=== PATIENT | female | born 1935 | race African-American/Black ===

== ENCOUNTER 2016-12-11 01:12 | Emergency (ER) | payer MEDICARE ==
[~2016-12-11] VITALS: Ht 167.6 cm; Wt 80.0 kg
[~2016-12-11 01:12] MED LIST: AMOX400S3 PO; BISA10R PR; CIPR250T2 PO; CREON12 PO; DILTCD240 PO; FEED1MIS9; FENT25DI T-DERMAL; FLUC100T41 PO; MAGN30S PO; METO10TA PO; METO25 PO; NORC10TA2 PO; OMPR20CCR PO; SUCR1TAB PO; URSO300 PO
[2016-12-11 01:21] VITALS: BP 161/69; PULSE 74; RESP 18; TEMP 97; O2SAT 98
[2016-12-11] MEDS ORDERED: METO25TA3 PO (01:57)
[2016-12-11] MEDS ORDERED: SUCR1TAB PO (01:57)
[2016-12-11] MEDS ORDERED: CART120C PO (01:57)
[2016-12-11] MEDS ORDERED: PANT40TA3 PO (01:57)
[2016-12-11] MEDS ORDERED: CREON12 PO (01:57)
[2016-12-11] MEDS ORDERED: HYDR-3516 PO (01:57)
[2016-12-11] MEDS ORDERED: SODIUM CHLORIDE 0.9% FLUSH 5 ML FLUSH IVF PRN (02:00)
[2016-12-11 02:21] LABS: AUTOMATED NEUTROPHIL # 12.4 TH/MM3 (1.8-7.7); BASOPHIL # 0.1 TH/MM3 (0-0.2); BASOPHIL % 0.6 % (0.0-2.0); EOSINOPHIL # 0.1 TH/MM3 (0-0.4); HEMATOCRIT 36.9 % (35.0-46.0); HEMO FLAGS DIFF FINAL; LYMPH % 4.9 % (9.0-44.0); LYMPHOCYTE # 0.7 TH/MM3 (1.0-4.8); MEAN CORPUSCULAR HEMOGLOBIN 27.5 PG (27.0-34.0); MEAN CORPUSCULAR HGB CONC 33.2 % (32.0-36.0); MONO % 6.2 % (0.0-8.0); NEUT % 87.3 % (16.0-70.0); PLATELET COUNT 280 TH/MM3 (150-450); RED BLOOD COUNT 4.45 MIL/MM3 (4.00-5.30); WHITE BLOOD COUNT 14.2 TH/MM3 (4.0-11.0)
[2016-12-11] MEDS ORDERED: ONDANSETRON HCL 4 MG/2 ML VIAL IV ONE (02:30)
[2016-12-11] MEDS ORDERED: SODIUM CHLOR 0.9% 1000 ML INJ 1,000 ML IV ONE (02:30)
[2016-12-11] MEDS ORDERED: MORPHINE SULFATE 4 MG/ML INJ IV PUSH ONE ×3 (02:30→03:45)
--- NOTE | 2016-12-11 02:40 | PD ---
HPI Chief Complaint: Abdominal Pain Time Seen by Provider: 01:50 Travel History International Travel<30 days: No Contact w/Intl Traveler<30days: No Traveled to known affect area: No History of Present Illness HPI 80 year-old woman with a history of chronic pancreatitis, with epigastric pain similar to her previous panic toes of the symptoms are normal. Past week. 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 Since. Throbbing these in the past. She has a cholecystectomy. She has a G-tube in the past for nutritional supplementation. She has had some associated nausea. No change in her bowel movements. States the pain does radiate up into the chest some. No other complaints. History Past Medical History Narrative Medical Hypertension on chronic pancreatitis peptic ulcer disease anemia chronic kidney disease Menopausal: Yes Social History Alcohol Use: No Tobacco Use: No Allergies-Medications (Allergen,Severity, Reaction): Coded Allergies: No Known Allergies (Verified , 12/11/16) Reported Meds & Prescriptions Reported Meds & Active Scripts Active Reported Pantoprazole (Pantoprazole Sodium) 40 Mg Tab 40 Mg PO DAILY Creon (Amylase/Lipase/Protease) 12,000-38,000-60,000 Units Cap 1 Cap PO TIDPC Metoprolol Tartrate 25 Mg Tab 25 Mg PO BID Cartia Xt (Diltiazem ER 24 HR) 120 Mg Caper 120 Mg PO DAILY Hydrocodone-Acetaminophen 5-325 mg Tab 1 Tab PO QHS PRN Sucralfate 1 Gm Tab 1 Gm PO TID on empty stomach Review of Systems Except as stated in HPI: all other systems reviewed are Neg Physical Exam Narrative GENERAL: Well-appearing 80 year-old woman, no acute distress. SKIN: Warm and dry. HEAD: Atraumatic. Normocephalic. CARDIOVASCULAR: Regular rate and rhythm. No murmur appreciated. RESPIRATORY: No accessory muscle use. Clear to auscultation. Breath sounds equal bilaterally. GASTROINTESTINAL: Abdomen is flat and soft. Moderate epigastric tenderness. No rebound or guarding. MUSCULOSKELETAL: No obvious deformities. No clubbing. No cyanosis. No edema. NEUROLOGICAL: Awake and alert. No obvious cranial nerve deficits. Motor grossly within normal limits. Normal speech. PSYCHIATRIC: Appropriate mood and affect; insight and judgment normal. Data Data Last Documented VS Vital Signs Date Time Temp Pulse Resp B/P Pulse Ox O2 Delivery O2 Flow Rate FiO2 12/11/16 05:08 18 12/11/16 03:54 76 148/68 97 12/11/16 01:21 97.0 Room Air Orders Complete Blood Count With Diff (12/11/16 01:49) Comprehensive Metabolic Panel (12/11/16 01:49) Lipase (12/11/16 01:49) Urinalysis - C+S If Indicated (12/11/16 01:49) Iv Access Insert/Monitor (12/11/16 01:49) Sodium Chloride 0.9% Flush (Ns Flush) (12/11/16 02:00) Electrocardiogram (12/11/16 01:49) Troponin I (12/11/16 01:49) Morphine Inj (Morphine Inj) (12/11/16 02:30) Ondansetron Inj (Zofran Inj) (12/11/16 02:30) Sodium Chlor 0.9% 1000 Ml Inj (Ns 1000 M (12/11/16 02:30) Morphine Inj (Morphine Inj) (12/11/16 03:00) Morphine Inj (Morphine Inj) (12/11/16 03:45) Urine Culture (12/11/16 03:55) Labs Laboratory Tests Test 12/11/16 12/11/16 02:00 03:55 White Blood Count 14.2 TH/MM3 Red Blood Count 4.45 MIL/MM3 Hemoglobin 12.3 GM/DL Hematocrit 36.9 % Mean Corpuscular Volume 83.0 FL Mean Corpuscular Hemoglobin 27.5 PG Mean Corpuscular Hemoglobin 33.2 % Concent Red Cell Distribution Width 14.0 % Platelet Count 280 TH/MM3 Mean Platelet Volume 8.2 FL Neutrophils (%) (Auto) 87.3 % Lymphocytes (%) (Auto) 4.9 % Monocytes (%) (Auto) 6.2 % Eosinophils (%) (Auto) 1.0 % Basophils (%) (Auto) 0.6 % Neutrophils # (Auto) 12.4 TH/MM3 Lymphocytes # (Auto) 0.7 TH/MM3 Monocytes # (Auto) 0.9 TH/MM3 Eosinophils # (Auto) 0.1 TH/MM3 Basophils # (Auto) 0.1 TH/MM3 CBC Comment DIFF FINAL Differential Comment Sodium Level 140 MEQ/L Potassium Level 3.9 MEQ/L Chloride Level 107 MEQ/L Carbon Dioxide Level 24.8 MEQ/L Anion Gap 8 MEQ/L Blood Urea Nitrogen 34 MG/DL Creatinine 2.55 MG/DL Estimat Glomerular Filtration 22 ML/MIN Rate Random Glucose 120 MG/DL Calcium Level 9.1 MG/DL Total Bilirubin 0.2 MG/DL Aspartate Amino Transf 22 U/L (AST/SGOT) Alanine Aminotransferase 36 U/L (ALT/SGPT) Alkaline Phosphatase 147 U/L Troponin I LESS THAN 0.02 NG/ML Total Protein 7.3 GM/DL Albumin 3.0 GM/DL Lipase 1259 U/L Urine Color LIGHT-YELLOW Urine Turbidity CLEAR Urine pH 5.5 Urine Specific [place] 1.012 Urine Protein TRACE mg/dL Urine Glucose (UA) NEG mg/dL Urine Ketones NEG mg/dL Urine Occult Blood SMALL Urine Nitrite NEG Urine Bilirubin NEG Urine Urobilinogen LESS THAN 2.0 MG/DL Urine Leukocyte Esterase MOD Urine RBC 4 /hpf Urine WBC 20 /hpf Urine Squamous Epithelial 1 /hpf Cells Urine Renal Epithelial Cells <1 /hpf Microscopic Urinalysis Comment CULTURE INDICATED MDM Medical Decision Making Medical Screen Exam Complete: Yes Emergency Medical Condition: Yes Interpretation(s) My review of EKG: Normal sinus rhythm at a rate of 68, normal axis, normal intervals, no ischemia. LABS: CBC remarkable for mild leukocytosis. CMP remarkable for mildly elevated BUN and creatinine, mildly elevated lipase 1259 UA with mild pyuria. Culture pending. Differential Diagnosis Chronic pancreatitis, peptic ulcer disease, dehydration, other Narrative Course medical decision making 80 year-old woman presents emergent department epigastric abdominal pain, with nausea, no vomiting. Suspect chronic pancreatitis flare. Possible gastritis. She's taking her medications regularly. We'll check labs, IV fluids, pain control, reassess. FINAL: Labs show mildly elevated lipases, mildly abnormal BUN and creatinine, pyuria. I don't think patient symptoms are consistent with UTI. Await culture. Patient with acute on chronic pancreatitis. Offered admission. Patient would prefer to try at home with clear liquid diet, pain medicine, nausea medicine, and outpatient follow-up. She no she can return any time if her symptoms are worsening. She'll follow-up with her primary physician. Diagnosis Primary Impression: Pancreatitis, recurrent Additional Instructions: Clear liquid diet only until symptoms are improving. After that you can gradually advance diet as tolerated. Use Lortab if needed for pain. Use Zofran as needed for nausea or vomiting. Follow-up with your primary physician in the next one to 2 days for further evaluation. He will need repeat labs to follow up on your kidney function. Urine was sent for culture. If you have any infection we will call and antibiotics for you. If at any point you're having worsening pain is not relieved with the Lortab, you're having worsening vomiting, or you're getting dehydrated, return to the emergent arm for repeat evaluation and admission. Med/Other Pt SpecificInfo: Prescription(s) given Scripts Ondansetron Odt (Zofran Odt)4 Mg Tab4 Mg SL Q8HR PRN (Nausea/Vomiting) #15 TAB May substitute non-ODT form. Prov:Sanford Gale MD 12/11/16 Hydrocodone-Acetaminophen (Lortab)5-325 Mg Tab1-2 Tab PO Q6H PRN (PAIN) #20 TAB Prov:Sanford Gale MD 12/11/16 Disposition: 01 DISCHARGE HOME Condition: Stable Sanford Gale MD Dec 11, 2016 02:40
[2016-12-11 02:51] LABS: ALKALINE PHOSPHATASE 147 U/L (45-117); TOTAL BILIRUBIN ADULT 0.2 MG/DL (0.2-1.0)
[2016-12-11 02:58] LABS: ALT (GPT) 36 U/L (10-53); ANION GAP 8 MEQ/L (5-15); AST (GOT) 22 U/L (15-37); BICARBONATE 24.8 MEQ/L (21.0-32.0); BLOOD UREA NITROGEN 34 MG/DL (7-18); CHLORIDE 107 MEQ/L (98-107); GLOMERULAR FILTRATION RATE 22 ML/MIN (>89); POTASSIUM 3.9 MEQ/L (3.5-5.1); SODIUM (NA) 140 MEQ/L (136-145)
[2016-12-11 03:54] VITALS: BP 148/68; PULSE 76; RESP 18; O2SAT 97
[2016-12-11 04:09] LABS: BLOOD, URINE SMALL (NEG); GLUCOSE,URINE NEG (NEG); KETONE, URINE NEG (NEG); NITRITE,URINE NEG (NEG); PH, URINE 5.5 (5.0-8.5); RENAL EPITHELIAL CELLS <1 /hpf; SQUAMOUS EPITHELIAL CELL URINE 1 /hpf (0-5); URINE COLOR LIGHT-YELLOW (YELLW/STRAW)
[2016-12-11 04:10] LABS: COMMENT (UR) CULTURE INDICATED; CULTURE IF INDICATED CULTURE INDICATED
[2016-12-11 05:08] VITALS: RESP 18
[2016-12-11] MEDS ORDERED: HYDR-3533 PO (05:27)
[2016-12-11] MEDS ORDERED: ZOFR4TAB3 SL (05:27)
--- NOTE | 2016-12-11 16:24 | EKG ---
Date Performed: 12/11/2016 Time Performed: 02:02:39 PTAGE: 80 years EKG: Sinus rhythm NORMAL ECG PREVIOUS TRACING : 10/06/2015 23.22 Compared to prior tracing no significant change DOCTOR: Luis Enrique Cerrato Interpretating Date/Time 12/11/2016 16:23:51
== END 2016-12-11 05:51 | disposition home or self-care (01) ==
LOC: NEPC 01:12
DX: K86.1 Other chronic pancreatitis (principal); N18.9 Chronic kidney disease, unspecified; I12.9 Hypertensive chronic kidney disease with stage 1 through stage 4 chronic kidney disease, or unspecified chronic kidney disease; R11.0 Nausea
CPT/HCPCS: 80053; 81001; 83690; 84484; 85025; 87086; 93005; 96361; 96374; 96375; 96376; 99284; J2270; J2405; J7030

== ENCOUNTER 2016-12-14 05:44 | Inpatient (IN) | payer MEDICARE ==
[~2016-12-14] VITALS: Ht 167.6 cm; Wt 80.2 kg
[~2016-12-14 05:44] MED LIST changes: -AMOX400S3 PO; -BISA10R PR; +CART120C PO; -CIPR250T2 PO; -DILTCD240 PO; -FEED1MIS9; -FENT25DI T-DERMAL; -FLUC100T41 PO; +HYDR-3516 PO; +HYDR-3533 PO; -MAGN30S PO; -METO10TA PO; -METO25 PO; +METO25TA3 PO; -NORC10TA2 PO; -OMPR20CCR PO; +PANT40TA3 PO; -URSO300 PO; +ZOFR4TAB3 SL
[2016-12-14 05:46] VITALS: BP 167/80; PULSE 105; RESP 16; TEMP 98; O2SAT 98
[2016-12-14] MEDS ORDERED: SODIUM CHLOR 0.9% 1000 ML INJ 1,000 ML IV SCH ×2 (06:12→08:46)
[2016-12-14] MEDS ORDERED: PANTOPRAZOLE SODIUM 40 MG VIAL IVP ONE (06:15)
[2016-12-14] MEDS ORDERED: MORPHINE SULFATE 4 MG/ML INJ IV PUSH ONE (06:15)
[2016-12-14] MEDS ORDERED: ONDANSETRON HCL 4 MG/2 ML VIAL IVP ONE (06:15)
--- NOTE | 2016-12-14 06:18 | PD ---
HPI Chief Complaint: Chest Pain Time Seen by Provider: 05:59 Travel History International Travel<30 days: No Contact w/Intl Traveler<30days: No Traveled to known affect area: No History of Present Illness HPI 80-year-old female complains of abdominal pain with nausea vomiting. Patient has history recurrent pancreatitis. Patient was seen in emergency room 3 days ago and discharged home with medication. Patient states that the pain got better and got worse again today. Patient denies any headache. Patient denies any chest pain or shortness of breath. Patient states the pain in cramping pain and sharp pain localized around epigastric and right upper quadrant of the abdomen. Patient denies any pain radiation. Patient denies any dysuria or frequency. Patient denies any vaginal discharge or bleeding. Patient denies any fever chills. Patient denies any back pain. PFSH Past Medical History Arthritis: Yes Asthma: No Atrial Fibrillation: Yes Autoimmune Disease: No Anxiety: No Depression: No Heart Rhythm Problems: Yes Cancer: No Cardiovascular Problems: Yes (HTN) High Cholesterol: Yes Chest Pain: No Congestive Heart Failure: No COPD: No Cerebrovascular Accident: No Diabetes: No Diminished Hearing: No Endocrine: No Gastrointestinal Disorders: Yes (HIATAL HERNIA) GERD: Yes Glaucoma: No Genitourinary: Yes Hepatitis: No Hiatal Hernia: Yes Hypertension: Yes Immune Disorder: No Implanted Vascular Access Dvce: Yes Kidney Stones: No Medical other: Yes (arthritis,neck and back problems) Musculoskeletal: Yes (knee pain, sciatica) Neurologic: Yes Psychiatric: No Reproductive: No Respiratory: No Migraines: No Pancreatitis: Yes Renal Failure: No Seizures: No Sickle Cell Disease: No Sleep Apnea: No Thyroid Disease: No Ulcer: No Menopausal: Yes Past Surgical History Abdominal Surgery: Yes (cholecystectomy, sphincterotomy) Arteriovenous Shunt: No Cardiac Surgery: No Cholecystectomy: Yes (2012) Ear Surgery: No Endocrine Surgery: No Eye Surgery: Yes Genitourinary Surgery: Yes (HEMORRHOIDECTOMY) Gynecologic Surgery: No Insulin Pump: No Joint Replacement: Yes (TKR LEFT KNEE) Neurologic Surgery: No Oral Surgery: No Pacemaker: No Thoracic Surgery: No Other Surgery: Yes (GROWTH REMOVED FROM LEFT WRIST/Sinus) Social History Alcohol Use: No Tobacco Use: No Substance Use: No Allergies-Medications (Allergen,Severity, Reaction): Coded Allergies: No Known Allergies (Verified , 12/14/16) Reported Meds & Prescriptions Reported Meds & Active Scripts Active Zofran Odt (Ondansetron Odt) 4 Mg Tab 4 Mg SL Q8HR PRN May substitute non-ODT form. Lortab (Hydrocodone-Acetaminophen) 5-325 Mg Tab 1-2 Tab PO Q6H PRN Reported Pantoprazole (Pantoprazole Sodium) 40 Mg Tab 40 Mg PO DAILY Creon (Amylase/Lipase/Protease) 12,000-38,000-60,000 Units Cap 1 Cap PO TIDPC Metoprolol Tartrate 25 Mg Tab 25 Mg PO BID Cartia Xt (Diltiazem ER 24 HR) 120 Mg Caper 120 Mg PO DAILY Hydrocodone-Acetaminophen 5-325 mg Tab 1 Tab PO QHS PRN Sucralfate 1 Gm Tab 1 Gm PO TID on empty stomach Review of Systems General / Constitutional: No: Fever Eyes: No: Visual changes HENT: No: Headaches Cardiovascular: No: Chest Pain or Discomfort Respiratory: No: Shortness of Breath Gastrointestinal: Positive: Nausea, Vomiting, Abdominal Pain Genitourinary: No: Dysuria Musculoskeletal: No: Pain Skin: No Rash Neurologic: No: Weakness Psychiatric: No: Depression Endocrine: No: Polydipsia Hematologic/Lymphatic: No: Easy Bruising Physical Exam Narrative GENERAL: Well-nourished, well-developed patient. SKIN: Warm and dry. HEAD: Normocephalic. EYES: No scleral icterus. No injection or drainage. NECK: Supple, trachea midline. No JVD or lymphadenopathy. CARDIOVASCULAR: Regular rate and rhythm without murmurs, gallops, or rubs. RESPIRATORY: Breath sounds equal bilaterally. No accessory muscle use. GASTROINTESTINAL: Abdomen soft, nondistended. Patient has moderate tenderness on palpation epigastric and right upper quadrant of the abdomen. No rebound tenderness. No mass. MUSCULOSKELETAL: No cyanosis, or edema. BACK: Nontender without obvious deformity. No CVA tenderness. Neurologic exam normal. Data Data Last Documented VS Vital Signs Date Time Temp Pulse Resp B/P Pulse Ox O2 Delivery O2 Flow Rate FiO2 12/14/16 05:46 98.0 105 16 167/80 98 Orders Complete Blood Count With Diff (12/14/16 06:12) Comprehensive Metabolic Panel (12/14/16 06:12) Lipase (12/14/16 06:12) Prothrombin Time / Inr (Pt) (12/14/16 06:12) Act Partial Throm Time (Ptt) (12/14/16 06:12) Urinalysis - C+S If Indicated (12/14/16 06:12) Iv Access Insert/Monitor (12/14/16 06:12) Ecg Monitoring (12/14/16 06:12) Oximetry (12/14/16 06:12) Morphine Inj (Morphine Inj) (12/14/16 06:15) Ondansetron Inj (Zofran Inj) (12/14/16 06:15) Pantoprazole Inj (Protonix Inj) (12/14/16 06:15) Sodium Chlor 0.9% 1000 Ml Inj (Ns 1000 M (12/14/16 06:12) Creatine Kinase (Cpk) (12/14/16 07:07) Troponin I (12/14/16 07:07) Ct Abd/Pel W/O Iv Contrast (12/14/16 07:07) Electrocardiogram (12/14/16 ) Labs Laboratory Tests Test 12/14/16 06:20 White Blood Count 15.4 TH/MM3 Red Blood Count 4.22 MIL/MM3 Hemoglobin 12.1 GM/DL Hematocrit 35.2 % Mean Corpuscular Volume 83.3 FL Mean Corpuscular Hemoglobin 28.6 PG Mean Corpuscular Hemoglobin 34.3 % Concent Red Cell Distribution Width 14.0 % Platelet Count 360 TH/MM3 Mean Platelet Volume 8.3 FL Neutrophils (%) (Auto) 87.8 % Lymphocytes (%) (Auto) 4.3 % Monocytes (%) (Auto) 5.5 % Eosinophils (%) (Auto) 1.3 % Basophils (%) (Auto) 1.1 % Neutrophils # (Auto) 13.6 TH/MM3 Lymphocytes # (Auto) 0.7 TH/MM3 Monocytes # (Auto) 0.8 TH/MM3 Eosinophils # (Auto) 0.2 TH/MM3 Basophils # (Auto) 0.2 TH/MM3 CBC Comment DIFF FINAL Differential Comment Prothrombin Time 11.8 SEC Prothromb Time International 1.1 RATIO Ratio Activated Partial 33.4 SEC Thromboplast Time Sodium Level 136 MEQ/L Potassium Level 3.7 MEQ/L Chloride Level 104 MEQ/L Carbon Dioxide Level 24.2 MEQ/L Anion Gap 8 MEQ/L Blood Urea Nitrogen 27 MG/DL Creatinine 2.46 MG/DL Estimat Glomerular Filtration 23 ML/MIN Rate Random Glucose 145 MG/DL Calcium Level 9.4 MG/DL Total Bilirubin 0.4 MG/DL Aspartate Amino Transf 24 U/L (AST/SGOT) Alanine Aminotransferase 43 U/L (ALT/SGPT) Alkaline Phosphatase 188 U/L Total Protein 7.7 GM/DL Albumin 2.8 GM/DL Lipase 343 U/L MDM Medical Decision Making Medical Screen Exam Complete: Yes Emergency Medical Condition: Yes Differential Diagnosis Differential diagnosis including gastritis, PUD, pancreatitis, cholecystitis, colitis, UTI, pyelonephritis, nephrolithiasis. Narrative Course 80-year-old female with epigastric pain and right upper quadrant abdominal pain. History of recurrent pancreatitis. Normal saline solution 1 25 cc an hour. Protonix 40 mg IV. Morphine 2 mg IV. Zofran 4 mg IV. Patient is signed out to Dr. Kendrick at 7:09 AM. Diagnosis Primary Impression: Acute pancreatitis Qualified Code: K85.90 - Acute pancreatitis without infection or necrosis, unspecified pancreatitis type Miguel Mack MD Dec 14, 2016 06:18
[2016-12-14 06:31] LABS: AUTOMATED NEUTROPHIL # 13.6 TH/MM3 (1.8-7.7); BASOPHIL # 0.2 TH/MM3 (0-0.2); BASOPHIL % 1.1 % (0.0-2.0); EOSINOPHIL # 0.2 TH/MM3 (0-0.4); EOSINOPHIL % 1.3 % (0.0-4.0); HEMATOCRIT 35.2 % (35.0-46.0); HEMO FLAGS DIFF FINAL; LYMPH % 4.3 % (9.0-44.0); LYMPHOCYTE # 0.7 TH/MM3 (1.0-4.8); MEAN CELL VOLUME 83.3 FL (80.0-100.0); MEAN CORPUSCULAR HEMOGLOBIN 28.6 PG (27.0-34.0); MEAN CORPUSCULAR HGB CONC 34.3 % (32.0-36.0); MONO % 5.5 % (0.0-8.0); NEUT % 87.8 % (16.0-70.0); PLATELET COUNT 360 TH/MM3 (150-450); RED BLOOD COUNT 4.22 MIL/MM3 (4.00-5.30); WHITE BLOOD COUNT 15.4 TH/MM3 (4.0-11.0)
[2016-12-14 06:37] LABS: APTT (PATIENT) 33.4 SEC (24.3-30.1); INTERNATIONAL NORMALIZED RATIO 1.1 RATIO; PROTHROMBIN TIME - PATIENT 11.8 SEC (9.8-11.6)
[2016-12-14 06:50] LABS: ALT (GPT) 43 U/L (10-53); ANION GAP 8 MEQ/L (5-15); AST (GOT) 24 U/L (15-37); BICARBONATE 24.2 MEQ/L (21.0-32.0); BLOOD UREA NITROGEN 27 MG/DL (7-18); CHLORIDE 104 MEQ/L (98-107); GLOMERULAR FILTRATION RATE 23 ML/MIN (>89); POTASSIUM 3.7 MEQ/L (3.5-5.1); SODIUM (NA) 136 MEQ/L (136-145)
[2016-12-14 06:52] LABS: ALKALINE PHOSPHATASE 188 U/L (45-117); TOTAL BILIRUBIN ADULT 0.4 MG/DL (0.2-1.0)
[2016-12-14] MEDS ORDERED: HYDROmorphone HCL PF 1 MG/ML VIAL IV PUSH ONE (07:15)
[2016-12-14 07:25] VITALS: BP 142/76; PULSE 78; RESP 16; TEMP 98.1; O2SAT 98
[2016-12-14 07:43] LABS: CREATINE KINASE 41 U/L (26-192)
--- NOTE | 2016-12-14 08:38 | RADRPT ---
EXAM DATE/TIME: 12/14/2016 07:53 [facility] COMPARISON: CT ABDOMEN & PELVIS W/O CONTRAST, December 15, 2015, 20:38. INDICATIONS : Right upper quadrant and epigastric pain for one week. ORAL CONTRAST: No oral contrast ingested. RADIATION DOSE: 8.69 CTDIvol (mGy) MEDICAL HISTORY : Cardiovascular disease. Hypertension. Pancreatitis. SURGICAL HISTORY : Cholecystectomy. Hemorrhoidectomy. Sphincterotomy. Feeding tube placement. ENCOUNTER: Initial ACUITY: 1 week PAIN SCALE: 8/10 LOCATION: Right upper quadrant TECHNIQUE: Volumetric scanning of the abdomen and pelvis was performed. Using automated exposure control and ad justment of the mA and/or kV according to patient size, radiation dose was kept as low as reasonably achievable to obtain optimal diagnostic quality images. FINDINGS: There are minimal bibasilar parenchymal changes evident worse on the left than the right. These are stable in the short interval. The heart is enlarged. Biliary stent is evident with biliary air. Mass is again seen in the head of the pancreas. Spleen and adrenals are unremarkable. A cyst is seen in the upper pole of the right kidney. The left kidney is unremarkable. There is no ascites evident. Mild prominence to the uterus is noted. There is no free fluid or free air. CONCLUSION: 1. Patent biliary stent. Head of pancreas remains prominent with minimal peripancreatic induration, slightly increased in the interval. 2. Gastrostomy tube has been removed. 3. Moderate bibasilar parenchymal changes, stable in the interval. Jamie Tabor MD FACR on December 14, 2016 at 8:14 Board Certified Radiologist. This report was verified electronically.
--- NOTE | 2016-12-14 08:50 | PD ---
Data Data Last Documented VS Vital Signs Date Time Temp Pulse Resp B/P Pulse Ox O2 Delivery O2 Flow Rate FiO2 12/14/16 05:46 98.0 105 16 167/80 98 Orders Complete Blood Count With Diff (12/14/16 06:12) Comprehensive Metabolic Panel (12/14/16 06:12) Lipase (12/14/16 06:12) Prothrombin Time / Inr (Pt) (12/14/16 06:12) Act Partial Throm Time (Ptt) (12/14/16 06:12) Urinalysis - C+S If Indicated (12/14/16 06:12) Iv Access Insert/Monitor (12/14/16 06:12) Ecg Monitoring (12/14/16 06:12) Oximetry (12/14/16 06:12) Morphine Inj (Morphine Inj) (12/14/16 06:15) Ondansetron Inj (Zofran Inj) (12/14/16 06:15) Pantoprazole Inj (Protonix Inj) (12/14/16 06:15) Sodium Chlor 0.9% 1000 Ml Inj (Ns 1000 M (12/14/16 06:12) Creatine Kinase (Cpk) (12/14/16 07:07) Troponin I (12/14/16 07:07) Ct Abd/Pel W/O Iv Contrast (12/14/16 07:07) Electrocardiogram (12/14/16 ) Hydromorphone Pf Inj (Dilaudid Pf Inj) (12/14/16 07:15) Sodium Chlor 0.9% 1000 Ml Inj (Ns 1000 M (12/14/16 08:46) Labs Laboratory Tests Test 12/14/16 06:20 White Blood Count 15.4 TH/MM3 Red Blood Count 4.22 MIL/MM3 Hemoglobin 12.1 GM/DL Hematocrit 35.2 % Mean Corpuscular Volume 83.3 FL Mean Corpuscular Hemoglobin 28.6 PG Mean Corpuscular Hemoglobin 34.3 % Concent Red Cell Distribution Width 14.0 % Platelet Count 360 TH/MM3 Mean Platelet Volume 8.3 FL Neutrophils (%) (Auto) 87.8 % Lymphocytes (%) (Auto) 4.3 % Monocytes (%) (Auto) 5.5 % Eosinophils (%) (Auto) 1.3 % Basophils (%) (Auto) 1.1 % Neutrophils # (Auto) 13.6 TH/MM3 Lymphocytes # (Auto) 0.7 TH/MM3 Monocytes # (Auto) 0.8 TH/MM3 Eosinophils # (Auto) 0.2 TH/MM3 Basophils # (Auto) 0.2 TH/MM3 CBC Comment DIFF FINAL Differential Comment Prothrombin Time 11.8 SEC Prothromb Time International 1.1 RATIO Ratio Activated Partial 33.4 SEC Thromboplast Time Sodium Level 136 MEQ/L Potassium Level 3.7 MEQ/L Chloride Level 104 MEQ/L Carbon Dioxide Level 24.2 MEQ/L Anion Gap 8 MEQ/L Blood Urea Nitrogen 27 MG/DL Creatinine 2.46 MG/DL Estimat Glomerular Filtration 23 ML/MIN Rate Random Glucose 145 MG/DL Calcium Level 9.4 MG/DL Total Bilirubin 0.4 MG/DL Aspartate Amino Transf 24 U/L (AST/SGOT) Alanine Aminotransferase 43 U/L (ALT/SGPT) Alkaline Phosphatase 188 U/L Total Creatine Kinase 41 U/L Troponin I LESS THAN 0.02 NG/ML Total Protein 7.7 GM/DL Albumin 2.8 GM/DL Lipase 343 U/L [facility] Supervised Visit with ABHAY: No Narrative Course The patient was evaluated by the previous provider and signed out to me at the beginning of my shift pending CT abdomen pelvis and disposition, see his note for further details. Briefly this is a 80-year-old female with history of recurrent pancreatitis who presents for evaluation of epigastric abdominal pain. The patient was seen in the emergency department 3 days ago and had a lipase of 1200. Admission was advised, however the patient decided that she wanted to try to treat herself at home. Pain has not gone away and radiates up into her chest. EKG shows no signs of ischemia. Initial vital signs show a slight tachycardia with a heart rate of 105, otherwise unremarkable. CBC is remarkable for WBC 15.4 with 87% neutrophils. CMP is remarkable for BUN 27, creatinine 2.46, GFR 23 which is a lot worse than her baseline. Otherwise unremarkable. Lipase is 340. Cardiac enzymes are negative. CT abdomen pelvis: CONCLUSION: 1. Patent biliary stent. Head of pancreas remains prominent with minimal peripancreatic induration, slightly increased in the interval. 2. Gastrostomy tube has been removed. 3. Moderate bibasilar parenchymal changes, stable in the interval. Patient was given 2 doses of narcotic pain medication and a liter of IV fluids. She states that her pain has improved, however she is still complaining of some discomfort in her epigastric area. She is also dehydrated with a creatinine that is double her baseline. She'll be admitted for overnight observation for intractable abdominal pain and renal insufficiency. Diagnosis Primary Impression: Intractable abdominal pain Additional Impression: Acute renal insufficiency Admitting Information Admitting Physician Requests: Observation Luiz Kendrick MD Dec 14, 2016 08:50
[2016-12-14 09:03] VITALS: BP 144/70; PULSE 81; RESP 16; O2SAT 99
[2016-12-14] MEDS ORDERED: MAGNESIUM HYDROXIDE SUSP 30 ML CUP PO PRN (09:15)
[2016-12-14] MEDS ORDERED: NALOXONE HCL 0.4 MG/ML AMP IV PRN (09:15)
[2016-12-14] MEDS: NS + KCL 20 MEQ INJ 1,000 ML IV SCH ×2 (09:25→22:24)
[2016-12-14] MEDS: ACETAMINOPHEN 325 MG TAB PO PRN (09:26)
[2016-12-14 09:48] LABS: BLOOD, URINE MOD (NEG); COMMENT (UR) CULTURE INDICATED; CULTURE IF INDICATED CULTURE INDICATED; GLUCOSE,URINE NEG (NEG); KETONE, URINE NEG (NEG); MUCUS URINE FEW /lpf (OCC); NITRITE,URINE NEG (NEG); PH, URINE 5.5 (5.0-8.5); SQUAMOUS EPITHELIAL CELL URINE <1 /hpf (0-5); URINE COLOR YELLOW (YELLW/STRAW)
--- NOTE | 2016-12-14 09:51 | RADRPT ---
EXAM DATE/TIME: 12/14/2016 09:23 [facility] COMPARISON: CT ABDOMEN & PELVIS W/O CONTRAST, December 14, 2016, 7:53. CHEST EXPIRATION ONLY, December 22, 2015, 13:31. INDICATIONS : Short of breath, pain right chest and upper abdomen, cough MEDICAL HISTORY : Hypertension. Pancreatitis. SURGICAL HISTORY : Cholecystectomy. Hemorrhoidectomy. feeding tube ENCOUNTER: Subsequent ACUITY: 1 week PAIN SCORE: 4/10 LOCATION: Bilateral chest FINDINGS: There is mild unwinding of the aorta with normal vascularity with normal heart and clear left lung. R ight lung base reveals a thickened horizontal area of density consistent with atelectasis. CONCLUSION: Thickened horizontal area of atelectasis in the right lung base. Sanjay Rodriguez MD on December 14, 2016 at 9:46 Board Certified Radiologist. This report was verified electronically.
[2016-12-14] MEDS: LIPASE/PROTEASE/AMYLASE (12,000/38,000/60,000) CAP PO SCH ×3 (09:56→18:28)
--- NOTE | 2016-12-14 10:30 | HHI.HP ---
HPI Service [facility] Hospitalists Primary Care Physician Hong Peterson MD Admission Diagnosis intractable abdominal pain, acute renal insufficiency Chief Complaint: abdominal pain. Travel History International Travel<30 Days: No Contact w/Intl Traveler <30 Da: No Traveled to Known Affected Are: No History of Present Illness Pt has had numerous previous admissions d/t recurrent pancreatis. Pt has followed closely for many years with [facility] and has also been seen at the [facility]. She previously has had a cholecystectomy and sphincterotomy. Pt was last admitted d/t recurrent pancreatitis 11/13/15-01/02/16. During that admission, pt was treated with IVF and pain medications, but treatment was complicated by narcotic dependency. Pt typically has a reactive leukocytosis with her pancreatitis, and this has been seen on previous admissions. Pt underwent ERCP with stent placement 11/22/15. Pt had G/J tube placed on 11/28/15, but this was removed since prior hospitalization. Pt underwent repeat ERCP (12/11/15) Pt underwent biliary stent exchange with placement of a 10 amharic, 9 cm long plastic stent. During prior hospitalization , pt's case was confounded by a prolonged noninfectious inflammatory process which did NOT respond to antibiotics. Ultimately pt was placed on IV Solu- Medrol with a good clinical response and improvement of her leukocytosis. Pt was discharged to home on a prolonged oral prednisone taper. On this occasion, pt presented to the ER with c/o abdmianl pain and nausea. Pt was seen in the ER 3 days prior with similar complaints 12/11/16. Pt states that the abdominal pain is located at the RUQ and radiates to the epigastric region. Pt 's symptoms started 1 week ago, but have worsened over the last 3 days. Pt now c/o nausea and vomiting. Pt reports 2 episodes of vomiting today. On 12/11/16 pt's lipase was 1,259. Today (12/14/16) pt's lipase is down to 343. Pt refused admission and went home at prior ER visit (12/11/16). Initially the pain improved at home but then again worsened this AM leading her to seek attention in the ER. Pt denies any fever or chills. Pt's Creatinine is currently elevated. During prior hospitalization her creatinine was 1.29 on discharge (12/29/15) and today (12/14/16) 2.46. Pt has NOT been eating well over the last several days with increasing nausea and vomiting. At the time of my visit with Ms. Larsen in the [facility]-Pod. Pt appears quite comfortable and all smiles. Pt reports that last BM was 2 days ago. Pt's bowel sounds are present, but decreased. CT abd/pelvis (12/14/16) --> noted biliary stent, but NO acute findings. Pt will be admitted to observation status and received IVFs. Hopefully pt will be stable enough for discharge to home tomorrow. Review of Systems Constitutional: DENIES: Diaphoretic episodes, Fatigue, Fever, Weight gain, Weight loss, Chills, Dizziness, Change in appetite, Night Sweats Endocrine: DENIES: Heat/cold intolerance, Polydipsia, Polyuria, Polyphagia Eyes: DENIES: Blurred vision, Diplopia, Eye inflammation, Eye pain, Vision loss , Photosensitivity, Double Vision Ears, nose, mouth, throat: DENIES: Tinnitus, Hearing loss, Vertigo, Nasal discharge, Oral lesions, Throat pain, Hoarseness, Ear Pain, Running Nose, Epistaxis, Sinus Pain, Toothache, Odynophagia Respiratory: DENIES: Apneas, Cough, Snoring, Wheezing, Hemoptysis, Sputum production, Shortness of breath Cardiovascular: DENIES: Chest pain, Palpitations, Syncope, Dyspnea on Exertion , PND, Lower Extremity Edema, Orthopnea, Claudication Gastrointestinal: COMPLAINS OF: Abdominal pain, Nausea, See HPI, DENIES: Black stools, Bloody stools, BRB per rectum, Constipation, Diarrhea, GERD, Reflux, Vomiting, Difficulty Swallowing, Anorexia Genitourinary: DENIES: Urinary frequency, Urinary incontinence, Urgency, Hematuria, Dysuria, Nocturia Musculoskeletal: DENIES: Joint pain, Muscle aches, Stiffness, Joint Swelling, Back pain, Neck pain Integumentary: DENIES: Abnormal pigmentation, Pruritus, Rash, Nail changes, Breast masses, Breast skin changes, Nipple discharge Hematologic/lymphatic: DENIES: Bruising, Lymphadenopathy Immunologic/allergic: DENIES: Eczema, Urticaria Neurologic: DENIES: Abnormal gait, Headache, Localized weakness, Paresthesias, Seizures, Speech Problems, Tremor, Poor Balance Psychiatric: DENIES: Anxiety, Confusion, Mood changes, Depression, Hallucinations, Agitation, Suicidal Ideation, Homicidal Ideation, Delusions, History of Bipolar, History of Schizophrenia Past Family Social History Past Medical History Idiopathic recurrent pancreatitis Anxiety GERD HTN Past Surgical History Cholecystectomy Cataract surgery Hemorrhoid surgery ERCP EUS Reported Medications Reported Meds & Active Scripts Active Zofran Odt (Ondansetron Odt) 4 Mg Tab 4 Mg SL Q8HR PRN May substitute non-ODT form. Lortab (Hydrocodone-Acetaminophen) 5-325 Mg Tab 1-2 Tab PO Q6H PRN Reported Pantoprazole (Pantoprazole Sodium) 40 Mg Tab 40 Mg PO BID Creon (Amylase/Lipase/Protease) 12,000-38,000-60,000 Units Cap 1 Cap PO TIDPC Metoprolol Tartrate 25 Mg Tab 25 Mg PO BID Cartia Xt (Diltiazem ER 24 HR) 120 Mg Caper 120 Mg PO DAILY Hydrocodone-Acetaminophen 5-325 mg Tab 1 Tab PO QHS PRN Sucralfate 1 Gm Tab 1 Gm PO TID on empty stomach Allergies: Coded Allergies: No Known Allergies (Verified , 12/14/16) Family History Denies any family history of pancreatitis. Father had some type of stomach cancer per [facility] E[facility] Social History - No tobacco use - NO alcohol use - NO illicit street drugs Physical Exam Vital Signs Vital Signs Date Time Temp Pulse Resp B/P Pulse Ox O2 Delivery O2 Flow Rate FiO2 12/14/16 09:03 81 16 144/70 99 Room Air 12/14/16 08:01 16 12/14/16 07:25 98.1 78 16 142/76 98 Room Air 12/14/16 07:25 16 98 Room Air 12/14/16 07:20 76 16 Room Air 12/14/16 07:00 16 12/14/16 05:46 98.0 105 16 167/80 98 Physical Exam GENERAL: This is a well-nourished, well-developed patient, in no apparent distress. SKIN: No rashes, ecchymoses or lesions. Cool and dry. HEAD: Atraumatic. Normocephalic. No temporal or scalp tenderness. EYES: Pupils equal round and reactive. Extraocular motions intact. No scleral icterus. No injection or drainage. ENT: Nose without bleeding, purulent drainage or septal hematoma. Throat without erythema, tonsillar hypertrophy or exudate. Uvula midline. Airway patent. NECK: Trachea midline. No JVD or lymphadenopathy. Supple, nontender, no meningeal signs. CARDIOVASCULAR: Regular rate and rhythm without murmurs, gallops, or rubs. RESPIRATORY: Clear to auscultation. Breath sounds equal bilaterally. No wheezes , rales, or rhonchi. GASTROINTESTINAL: Abdomen soft, non-tender, nondistended. No hepato-splenomegaly , or palpable masses. No guarding. MUSCULOSKELETAL: Extremities without clubbing, cyanosis, or edema. No joint tenderness, effusion, or edema noted. No calf tenderness. Negative Homans sign bilaterally. NEUROLOGICAL: Awake and alert. Cranial nerves II through XII intact. Motor and sensory grossly within normal limits. Five out of 5 muscle strength in all muscle groups. Normal speech. Laboratory Laboratory Tests Test 12/14/16 12/14/16 06:20 09:30 White Blood Count 15.4 Red Blood Count 4.22 Hemoglobin 12.1 Hematocrit 35.2 Mean Corpuscular Volume 83.3 Mean Corpuscular Hemoglobin 28.6 Mean Corpuscular Hemoglobin 34.3 Concent Red Cell Distribution Width 14.0 Platelet Count 360 Mean Platelet Volume 8.3 Neutrophils (%) (Auto) 87.8 Lymphocytes (%) (Auto) 4.3 Monocytes (%) (Auto) 5.5 Eosinophils (%) (Auto) 1.3 Basophils (%) (Auto) 1.1 Neutrophils # (Auto) 13.6 Lymphocytes # (Auto) 0.7 Monocytes # (Auto) 0.8 Eosinophils # (Auto) 0.2 Basophils # (Auto) 0.2 CBC Comment DIFF FINAL Differential Comment Prothrombin Time 11.8 Prothromb Time International 1.1 Ratio Activated Partial 33.4 Thromboplast Time Sodium Level 136 Potassium Level 3.7 Chloride Level 104 Carbon Dioxide Level 24.2 Anion Gap 8 Blood Urea Nitrogen 27 Creatinine 2.46 Estimat Glomerular Filtration 23 Rate Random Glucose 145 Calcium Level 9.4 Total Bilirubin 0.4 Aspartate Amino Transf 24 (AST/SGOT) Alanine Aminotransferase 43 (ALT/SGPT) Alkaline Phosphatase 188 Total Creatine Kinase 41 Troponin I LESS THAN 0.02 Total Protein 7.7 Albumin 2.8 Lipase 343 Urine Color YELLOW Urine Turbidity HAZY Urine pH 5.5 Urine Specific [place] 1.013 Urine Protein 30 Urine Glucose (UA) NEG Urine Ketones NEG Urine Occult Blood MOD Urine Nitrite NEG Urine Bilirubin NEG Urine Urobilinogen LESS THAN 2.0 Urine Leukocyte Esterase LARGE Urine RBC 39 Urine WBC 101 Urine WBC Clumps OCC Urine Squamous Epithelial <1 Cells Urine Mucus FEW Microscopic Urinalysis Comment CULTURE INDICATED Date/Time Procedure Status Source Growth 12/14/16 09:30 Urine Culture Received Urine Random Urine Pending Result Diagram: 12/14/16 0620 12/14/16 0620 Imaging Last Impressions Chest X-Ray 12/14/16 0910 Signed Impressions: Service Date/Time: Wednesday, December 14, 2016 09:23 - CONCLUSION: Thickened horizontal area of atelectasis in the right lung base. Sanjay Rodriguez MD Septic Shock Reassessment Heart: Regular rate and rhythm Lungs: Clear Skin: Warm Peripheral Pulses: Bounding Right Radial Bounding Left Radial Bounding Right Popliteal Bounding Left Popliteal Bounding Right Dorsalis Pedis Bounding Left Dorsalis Pedis Bounding Right Posterior Tibial Bounding Left Posterior Tibial Capillary Refill: Brisk Assessment and Plan Problem List: (1) Chronic recurrent pancreatitis Status: Acute Plan: - IVFs - narcotics prn - repeat labs in AM - anticipate d/c to home 12/15/16 (2) Acute on chronic kidney disease, stage 3 Status: Chronic Plan: - IVFs - repeat labs in AM (3) HTN (hypertension) Status: Chronic Plan: - metoprolol, cardizem CD (4) Anxiety Status: Chronic Problem Qualifiers (1) HTN (hypertension): Qualified Code: I10 - Essential hypertension Alexander Eddy DO Dec 14, 2016 10:30
[2016-12-14 11:14] VITALS: BP 132/60; PULSE 93; RESP 19; TEMP 98.5; O2SAT 100
[2016-12-14] MEDS: ACETAMINOPHEN/HYDROcodone 325 MG/5 MG TAB PO PRN ×2 (12:14→22:25)
[2016-12-14] MEDS: SUCRALFATE 1 GM TAB PO SCH ×2 (12:15→18:28)
--- NOTE | 2016-12-14 13:51 | EKG ---
Date Performed: 12/14/2016 Time Performed: 07:20:59 PTAGE: 80 years EKG: Sinus rhythm POSSIBLE RIGHT ATRIAL ENLARGEMENT NONSPECIFIC T-WAVE ABNORMALITY BORDERLINE ECG PREVIOUS TRACING : 12/11/2016 02.02 No significant change from previous tracing noted. DOCTOR: Semaj Genao Interpretating Date/Time 12/14/2016 13:50:25
[2016-12-14 15:18] VITALS: BP 192/88; PULSE 99; RESP 17; TEMP 99.3; O2SAT 95
[2016-12-14] MEDS: HYDROmorphone HCL PF 1 MG/ML VIAL IV PUSH PRN (16:16)
[2016-12-14 20:32] VITALS: BP 145/65; PULSE 118; RESP 18; TEMP 101.5; O2SAT 95
[2016-12-14] MEDS ORDERED: POTASSIUM CHLOR 20 MEQ PREMIX 100 ML ONE (22:15)
[2016-12-14] MEDS: METOPROLOL TARTRATE 25 MG TAB PO SCH (22:23)
[2016-12-14] MEDS: SODIUM CHLORIDE 0.9% FLUSH 5 ML FLUSH FLUSH SCH (22:23)
[2016-12-14] MEDS: PANTOPRAZOLE SOD 40 MG DELAYED RELEASE TAB PO SCH (22:23)
[2016-12-14] MEDS: ONDANSETRON HCL 4 MG/2 ML VIAL IVP PRN (22:28)
[2016-12-15 00:21] VITALS: BP 141/79; PULSE 107; RESP 16; TEMP 99.2; O2SAT 95
[2016-12-15] MEDS: HYDROmorphone HCL PF 1 MG/ML VIAL IV PUSH PRN (02:35)
[2016-12-15] MEDS: ACETAMINOPHEN/HYDROcodone 325 MG/5 MG TAB PO PRN ×3 (05:55→20:17)
[2016-12-15 06:01] VITALS: BP 134/77; PULSE 101; RESP 18; TEMP 99.5; O2SAT 98
[2016-12-15 07:15] LABS: AUTOMATED NEUTROPHIL # 12.3 TH/MM3 (1.8-7.7); BASOPHIL # 0.1 TH/MM3 (0-0.2); BASOPHIL % 0.6 % (0.0-2.0); EOSINOPHIL # 0.1 TH/MM3 (0-0.4); EOSINOPHIL % 0.7 % (0.0-4.0); HEMATOCRIT 32.8 % (35.0-46.0); HEMO FLAGS DIFF FINAL; LYMPH % 7.3 % (9.0-44.0); LYMPHOCYTE # 1.1 TH/MM3 (1.0-4.8); MEAN CELL VOLUME 83.6 FL (80.0-100.0); MEAN CORPUSCULAR HEMOGLOBIN 27.1 PG (27.0-34.0); MEAN CORPUSCULAR HGB CONC 32.4 % (32.0-36.0); MONO % 6.6 % (0.0-8.0); NEUT % 84.8 % (16.0-70.0); PLATELET COUNT 330 TH/MM3 (150-450); RED BLOOD COUNT 3.93 MIL/MM3 (4.00-5.30); RED CELL DISTRIBUTION WIDTH 13.8 % (11.6-17.2); WHITE BLOOD COUNT 14.5 TH/MM3 (4.0-11.0)
[2016-12-15 07:41] LABS: BICARBONATE 21.8 MEQ/L (21.0-32.0); MAGNESIUM 2.1 MG/DL (1.5-2.5)
[2016-12-15 08:17] VITALS: BP 132/66; PULSE 101; RESP 18; TEMP 98.3; O2SAT 95
[2016-12-15] MEDS: DILTIAZEM-CD 120 MG CAP ER PO SCH (10:12)
[2016-12-15] MEDS: SODIUM CHLORIDE 0.9% FLUSH 5 ML FLUSH FLUSH SCH ×2 (10:13→20:17)
[2016-12-15] MEDS: LIPASE/PROTEASE/AMYLASE (12,000/38,000/60,000) CAP PO SCH ×3 (10:13→18:47)
[2016-12-15] MEDS: SUCRALFATE 1 GM TAB PO SCH ×3 (10:13→18:47)
[2016-12-15] MEDS: METOPROLOL TARTRATE 25 MG TAB PO SCH ×2 (10:13→20:18)
[2016-12-15] MEDS: PANTOPRAZOLE SOD 40 MG DELAYED RELEASE TAB PO SCH ×2 (10:13→20:18)
[2016-12-15] MEDS: NS + KCL 20 MEQ INJ 1,000 ML IV SCH ×2 (11:04→23:25)
[2016-12-15 12:03] VITALS: BP 144/77; PULSE 86; RESP 18; O2SAT 95
--- NOTE | 2016-12-15 13:55 | HHI.PR ---
Subjective Remarks Pt c/o continued RUQ abdominal pain requiring narcotics. Pt's PO intake has been poor. Pt had fever overnight, but NONE today. Pt denies cough. CXR (12/14/16) --> NO infiltrates Pt denies dysuria UA Cx (12/14/16) 10-50K CFU, probable contaminants Objective Vitals Vital Signs Date Time Temp Pulse Resp B/P Pulse Ox O2 Delivery O2 Flow Rate FiO2 12/15/16 12:03 86 18 144/77 95 12/15/16 08:17 98.3 101 18 132/66 95 12/15/16 06:01 99.5 101 18 134/77 98 12/15/16 03:12 16 12/15/16 00:21 99.2 107 16 141/79 95 12/14/16 23:30 19 12/14/16 20:32 101.5 118 18 145/65 95 12/14/16 15:18 99.3 99 17 192/88 95 Result Diagram: 12/15/16 0630 12/15/16 0630 Imaging Last Impressions Chest X-Ray 12/14/16 0910 Signed Impressions: Service Date/Time: Wednesday, December 14, 2016 09:23 - CONCLUSION: Thickened horizontal area of atelectasis in the right lung base. Sanjay Rodriguez MD Abdomen/Pelvis CT 12/14/16 0707 Signed Impressions: Service Date/Time: Wednesday, December 14, 2016 07:53 - CONCLUSION: 1. Patent biliary stent. Head of pancreas remains prominent with minimal peripancreatic induration, slightly increased in the interval. 2. Gastrostomy tube has been removed. 3. Moderate bibasilar parenchymal changes, stable in the interval. Jamie Tabor MD FACR A/P Problem List: (1) Chronic recurrent pancreatitis Status: Acute Plan: - pt with continued abdominal pain and nausea - poor PO intake - IVFs - narcotics prn - downgrade diet to full liquids - repeat labs in AM - request GI consult (2) Acute on chronic kidney disease, stage 3 Status: Chronic Plan: - little improvement from admission - continue IVFs - repeat labs in AM (3) HTN (hypertension) Status: Chronic Plan: - metoprolol, cardizem CD (4) Anxiety Status: Chronic Problem Qualifiers (1) HTN (hypertension): Qualified Code: I10 - Essential hypertension Eddy,Edward B DO Dec 15, 2016 13:55
--- NOTE | 2016-12-15 15:49 | PD.CONS ---
HPI History of Present Illness This is a 80 year old with a hx of idiopathic recurrent pancreatitis, who came to the ER for further evaluation of persistent nausea/vomiting and abdominal pain. She has had multiple hospitalizations for her these symptoms and has had She has had extensive workup for her recurrent pancreatitis with MRCP, ERCP with sphincterotomy for suspected sphincter dysfunction vs. microlithiasis, Ig4 level, EUS, Triglycerides, and tertiary evaluation. She had a prolonged hospitalization in November/December of last year for her pancreatitis and was evaluated with ERCP with stent placement (11/22/15). Afterwards, she continued to have fevers and blood cultures revealed klebsiella pneumonia and therefore when underwent another ERCP with stent exchange on (12/11/15) for possible biliary sepsis. Outpatient records show that she then had an EGD with biopsy, GJ tube repositioning, ERCP with stent removal, biliary dilation with CRE balloon, balloon extraction, and wall stent, EUS (02/12/16)------> unremarkable EUS of the pancrease, a stent was noted in the CBD, but otherwise was normla, prior sphincterotomy but otherwise normal, distal cbd stricture, smooth benign, this was dilated with CRE balloon 10mm post dil still significant narrowing and as such a full cover 10 slovenian 6 cm wall stent was placed, positioning satisfactory, prior to stent placement a 15 mm balloon was used to clear the bile duct and no stones were noted, intrhepatic biliary tree normal, not dilated , normal esophagus, hiatal hernia, large antral ulcer, clean based, this was biopsied. Pathology of antral ulcer with predominantly necroinflammatory exudate consistent with ulceration, with rare detached fragments of benign gastric mucosa. She also had G/J tube placement during a prior hospitalization which has subsequently been removed. She was evaluated for anemia with EGD/ Colonoscopy (10/04/15) and this revealed an ulcer at the GE junction, thick gastric fold at pre-pyloric area, mild gastritis, duodenal inflammation in the bulb and second portion of the duodenum, small polyp in the ascending colon, and moderate internal hemorrhoids. Pathology revealed gastric antral mucosal biopsies with mild chronic gastritis exhibiting histopathologic features consistent with chemical gastropathy as may be seen with bile reflux, nonsteroidal anti-inflammatory drugs or other drug induced disease negative for intestinal metaplasia and dysplasia, gricelda stain negative for helicobacter, gastroesophageal mucosal biopsy with inflammatory changes consistent with reflux negative for intestinal metaplasia and dysplasia, colonic mucosa with adenomatous polyp. She was last seen in our office in April of 2016, at which time she was doing very well and her ursodiol, reglan, and g/j tube was discontinued. She was doing well up until recently. She actually started having minor epigastric pain a few weeks ago, but states that she would take her hydrocodone and that it would subside. However, she had worsening of this pain on with nausea/vomiting and did not have any relief with the pain medicine and therefore came to the ER on 12/11/16 and was found to have a lipase of 1259. The pain is a dull ache in her epigastric and RUQ. It radiates to her back and she has associated nausea/vomiting. She also reports fevers and chills although she did not actually take her temperature. She denies any weight loss and actually she gained weight and this has been stable. SHe has mild bloating and states she has not moved her bowels since . Her symptoms are aggravated by any po intake. She declined admission at that time and was discharged home on a clear liquid diet and lortab for pain, zofran for n/v. She stayed on the clear liquids and reports that she really could even take much in the way of po. She then returned yesterday, after she had worsening of her abdominal pain and was noted to have a elevated creatinine from 1.29 on the 12/11, to 2.46 yesterday and was admitted for chronic recurrent pancreatitis. CT scan abdomen and pelvis without contrast (12/14/16)----> patent biliary stent. Head of pancreas remains promient with minimal peripancreatic induration slightly increased in the interval, gastrostomy tube has been removed , moderate bibaseilar parenchymal changes, stable in the interval. She denies any new medications and does not drink ETOH. (Edwina Dodge) PFSH Past Medical History Idiopathic recurrent pancreatitis Anxiety GERD HTN Ulcer at GE junction Gastritis, Duodenitis Adenomatous colon polyp Past Surgical History Cholecystectomy Cataract surgery Hemorrhoid surgery ERCP EUS EGD/Colonoscopy (Edwina Dodge) Coded Allergies: No Known Allergies (Verified , 12/14/16) Medications Allergies Coded Allergies Type Severity Reaction Last Updated Verified No Known Allergies 12/14/16 Yes Active Scripts Medications Dose Route/Sig Days Date Category Dose Instructions Zofran Odt (Ondansetron Odt) 4 Mg Tab 4 Mg SL Q8HR PRN 12/11/16 Rx May substitute non-ODT form. Lortab (Hydrocodone-Acetaminophen) 5-325 Mg Tab 1-2 Tab PO Q6H PRN 12/11/16 Rx Pantoprazole (Pantoprazole Sodium) 40 Mg Tab 40 Mg PO BID 12/11/16 Reported Creon (Amylase/Lipase/Protease) 12,000-38,000-60,000 Units Cap 1 Cap PO TIDPC 12/11/16 Reported Metoprolol Tartrate 25 Mg Tab 25 Mg PO BID 12/11/16 Reported Cartia Xt (Diltiazem ER 24 HR) 120 Mg Caper 120 Mg PO DAILY 12/11/16 Reported Hydrocodone-Acetaminophen 5-325 mg Tab 1 Tab PO QHS PRN 12/11/16 Reported Sucralfate 1 Gm Tab 1 Gm PO TID 12/11/16 Reported on empty stomach Family History Denies any family history of pancreatitis. States father had some type of "chest cancer." Social History Denies tobacco, etoh use. (Edwina Dodge) Review of Systems Constitutional: COMPLAINS OF: Fatigue, Fever, Weight gain, Chills, Change in appetite (recent), DENIES: Weight loss Respiratory: DENIES: Cough Cardiovascular: DENIES: Chest pain Gastrointestinal: COMPLAINS OF: Abdominal pain, Constipation, Nausea, Vomiting , Anorexia (recent), Swelling of Abdomen, DENIES: Black stools, Bloody stools, Diarrhea, Heartburn Musculoskeletal: COMPLAINS OF: Back pain Neurologic: COMPLAINS OF: Headache Psychiatric: DENIES: Anxiety, Confusion (Edwina Dodge) GI Exam Vitals I&O Vital Signs Date Time Temp Pulse Resp B/P Pulse Ox O2 Delivery O2 Flow Rate FiO2 12/15/16 12:03 86 18 144/77 95 12/15/16 08:17 98.3 101 18 132/66 95 12/15/16 06:01 99.5 101 18 134/77 98 12/15/16 03:12 16 12/15/16 00:21 99.2 107 16 141/79 95 12/14/16 23:30 19 12/14/16 20:32 101.5 118 18 145/65 95 Imaging Last Impressions Chest X-Ray 12/14/16 0910 Signed Impressions: Service Date/Time: Wednesday, December 14, 2016 09:23 - CONCLUSION: Thickened horizontal area of atelectasis in the right lung base. Sanjay Rodriguez MD Abdomen/Pelvis CT 12/14/16 0707 Signed Impressions: Service Date/Time: Wednesday, December 14, 2016 07:53 - CONCLUSION: 1. Patent biliary stent. Head of pancreas remains prominent with minimal peripancreatic induration, slightly increased in the interval. 2. Gastrostomy tube has been removed. 3. Moderate bibasilar parenchymal changes, stable in the interval. Jamie Tabor MD FACR Laboratory Test 12/15/16 06:30 White Blood Count 14.5 TH/MM3 Red Blood Count 3.93 MIL/MM3 Hemoglobin 10.7 GM/DL Hematocrit 32.8 % Mean Corpuscular Volume 83.6 FL Mean Corpuscular Hemoglobin 27.1 PG Mean Corpuscular Hemoglobin 32.4 % Concent Red Cell Distribution Width 13.8 % Platelet Count 330 TH/MM3 Mean Platelet Volume 8.1 FL Neutrophils (%) (Auto) 84.8 % Lymphocytes (%) (Auto) 7.3 % Monocytes (%) (Auto) 6.6 % Eosinophils (%) (Auto) 0.7 % Basophils (%) (Auto) 0.6 % Neutrophils # (Auto) 12.3 TH/MM3 Lymphocytes # (Auto) 1.1 TH/MM3 Monocytes # (Auto) 1.0 TH/MM3 Eosinophils # (Auto) 0.1 TH/MM3 Basophils # (Auto) 0.1 TH/MM3 CBC Comment DIFF FINAL Differential Comment Sodium Level 138 MEQ/L Potassium Level 4.0 MEQ/L Chloride Level 106 MEQ/L Carbon Dioxide Level 21.8 MEQ/L Anion Gap 10 MEQ/L Blood Urea Nitrogen 25 MG/DL Creatinine 2.58 MG/DL Estimat Glomerular Filtration 22 ML/MIN Rate Random Glucose 88 MG/DL Calcium Level 8.5 MG/DL Magnesium Level 2.1 MG/DL Date/Time Procedure Status Source Growth 12/14/16 09:30 Urine Culture - Final Complete Urine Random Urine 10-50,000 CFU/ML MIXED DINORAH... Physical Examination HEENT: Pupils round and reactive to light; normocephalic; atraumatic; no jaundice. Throat is clear. NECK: Neck is supple, no JVD, no lymphadenopathy. CHEST: Chest is clear to auscultation and percussion. CARDIAC: RRR ABDOMEN: Soft, mildly bloated, diffuse tenderness, more in epigastric/RUQ, no hepatosplenomegaly; bowel sounds are present in all four quadrants. EXTREMITIES: No clubbing, cyanosis, or edema. SKIN: Normal; no rash; no jaundice. [employer]: No focal deficits; alert and oriented times three. (Edwina DodgeP) Assessment and Plan Plan ASSESSMENT: - Recurrent pancreatitis. Pt with hx of idiopathic recurrent pancreatitis, s/p extensive workup for her recurrent pancreatitis with MRCP, ERCP with sphincterotomy for suspected sphincter dysfunction vs. microlithiasis, Ig4 level, EUS, Triglycerides, and tertiary evaluation. She had a prolonged hospitalization in November/December of last year for her pancreatitis and was evaluated with ERCP with stent placement (11/22/15), exchange on (12/11/15) for suspected biliary sepsis and G/J tube placement. She then had EGD with biopsy, GJ tube repositioning, ERCP with stent removal , biliary dilation with CRE balloon, balloon extraction, and wall stent, EUS ()------> unremarkable EUS of the pancrease, a stent was noted in the CBD, but otherwise was normla, prior sphincterotomy but otherwise normal, distal cbd stricture, smooth benign, this was dilated with CRE balloon 10mm post dil still significant narrowing and as such a full cover 10 slovenian 6 cm wall stent was placed, positioning satisfactory, prior to stent placement a 15 mm balloon was used to clear the bile duct and no stones were noted, intrahepatic biliary tree normal, not dilated, normal esophagus, hiatal hernia, large antral ulcer, clean based, this was biopsied. Pathology of antral ulcer with predominantly necroinflammatory exudate consistent with ulceration, with rare detached fragments of benign gastric mucosa. She was last seen in our office in April of 2016, at which time she was doing very well and her ursodiol, reglan, and g/j tube was discontinued. CT scan abdomen and pelvis without contrast (12/14/16)----> patent biliary stent. Head of pancreas remains promient with minimal peripancreatic induration slightly increased in the interval, gastrostomy tube has been removed, moderate bibasilar parenchymal changes, stable in the interval. LFT unremarkable other than elevated alk. phosp 188. S/P Cholecystectomy, lipase now 343, although was > 1000 on 12/11. She denies any new medications and does not drink ETOH. IVF. PPI. Full liquids. - Leukocytosis/Fever. 14.5. Pt reports fevers/chills. Did have feer of 101.5 last night. - WAYNE. Creat. 2.58. IVF - Anemia. 10.7/32.8. Did have gastric ulcer on last endoscopy in january of 2016. No obvious GI bleeding. Prior to that she had EGD/Colonoscopy (10/04/15) and this revealed an ulcer at the GE junction, thick gastric fold at pre-pyloric area, mild gastritis, duodenal inflammation in the bulb and second portion of the duodenum, small polyp in the ascending colon, and moderate internal hemorrhoids. Pathology revealed gastric antral mucosal biopsies with mild chronic gastritis exhibiting histopathologic features consistent with chemical gastropathy as may be seen with bile reflux, nonsteroidal anti-inflammatory drugs or other drug induced disease negative for intestinal metaplasia and dysplasia, gricelda stain negative for helicobacter, gastroesophageal mucosal biopsy with inflammatory changes consistent with reflux negative for intestinal metaplasia and dysplasia, colonic mucosa with adenomatous polyp. PLAN: - Full liquids - PPI - IVF - Monitor labs - Further recommendations to follow after patient seen and evaluated by Dr. Ortega (Edwina Dodge) Physician Comments Patient seen and examined Agree with above Continue present supportive care Monitor labs Pancreatitis etiology unclear but appears to be resolving at this point Plan EGD for tomorrow to further evaluate history of ulcers and potential causes for pancreatitis and to reassess biliary stent (Gregg Ortega MD ) Edwina Dodge Dec 15, 2016 15:49 Gregg Ortega MD Dec 15, 2016 21:17
[2016-12-15 15:59] VITALS: BP 139/68; PULSE 83; RESP 18; O2SAT 95
[2016-12-15] MEDS: ACETAMINOPHEN 325 MG TAB PO PRN ×2 (16:52→23:25)
[2016-12-15 18:08] VITALS: BP 150/70; PULSE 86; RESP 20; O2SAT 93
[2016-12-15] MEDS: ONDANSETRON HCL 4 MG/2 ML VIAL IVP PRN (23:40)
[2016-12-16] VITALS (7 sets, daily range): BP systolic 121–156; BP diastolic 67–77; PULSE 54–102; RESP 16–18; TEMP 98.2–100.6; O2SAT 95–100
[2016-12-16] MEDS ORDERED: HYDROmorphone HCL PF 1 MG/ML VIAL IV PUSH ONE (00:30)
[2016-12-16] MEDS ORDERED: SODIUM CHLORID 0.9% 500 ML IV SCH (01:00)
[2016-12-16] MEDS ORDERED: LACTATED RINGER'S 1000 ML IV SCH (01:00)
[2016-12-16] MEDS ORDERED: INSULIN HUMAN REGULAR 1,000 UNITS/10 ML VIAL SQ PRN (01:00)
[2016-12-16] MEDS: HYDROmorphone HCL PF 1 MG/ML VIAL IV PUSH PRN ×4 (02:27→21:20)
[2016-12-16 08:16] LABS: AUTOMATED NEUTROPHIL # 14.7 TH/MM3 (1.8-7.7); BASOPHIL # 0.1 TH/MM3 (0-0.2); BASOPHIL % 0.4 % (0.0-2.0); EOSINOPHIL # 0.1 TH/MM3 (0-0.4); EOSINOPHIL % 0.5 % (0.0-4.0); HEMATOCRIT 34.9 % (35.0-46.0); HEMO FLAGS DIFF FINAL; LYMPH % 4.1 % (9.0-44.0); LYMPHOCYTE # 0.7 TH/MM3 (1.0-4.8); MEAN CELL VOLUME 83.9 FL (80.0-100.0); MEAN CORPUSCULAR HGB CONC 32.2 % (32.0-36.0); MONO % 6.4 % (0.0-8.0); NEUT % 88.6 % (16.0-70.0); PLATELET COUNT 392 TH/MM3 (150-450); RED BLOOD COUNT 4.15 MIL/MM3 (4.00-5.30); RED CELL DISTRIBUTION WIDTH 13.8 % (11.6-17.2); WHITE BLOOD COUNT 16.6 TH/MM3 (4.0-11.0)
[2016-12-16] MEDS: ACETAMINOPHEN 325 MG TAB PO PRN (08:35)
[2016-12-16] MEDS: SUCRALFATE 1 GM TAB PO SCH ×3 (08:36→18:25)
[2016-12-16] MEDS: METOPROLOL TARTRATE 25 MG TAB PO SCH ×2 (08:36→19:30)
[2016-12-16] MEDS: PANTOPRAZOLE SOD 40 MG DELAYED RELEASE TAB PO SCH ×2 (08:36→19:30)
[2016-12-16] MEDS: DILTIAZEM-CD 120 MG CAP ER PO SCH (08:36)
[2016-12-16 08:39] LABS: BICARBONATE 21.8 MEQ/L (21.0-32.0); POTASSIUM 4.4 MEQ/L (3.5-5.1)
[2016-12-16] MEDS: SODIUM CHLORIDE 0.9% FLUSH 5 ML FLUSH FLUSH SCH ×2 (08:44→19:30)
[2016-12-16] MEDS: NS + KCL 20 MEQ INJ 1,000 ML IV SCH ×2 (08:44→19:30)
--- NOTE | 2016-12-16 11:13 | PD.PROCEDR ---
GI Procedure REFERRING PHYSICIAN Dr. Eddy PROCEDURE PERFORMED EGD with biopsy INDICATION FOR PROCEDURE Abdominal pain pancreatitis etiology unclear history of peptic ulcer disease PROCEDURE: The procedure, risks and benefits were discussed with Ms. Larsen and informed consent was obtained. Anesthesia sedated her with Diprivan. She was placed in the left lateral decubitus position. EGD: The Pentax videoscope was introduced through the oropharynx and advanced to the second portion of the duodenum under direct visualization. Retroflexion was performed in the stomach. FINDINGS: The esophagus this was normal The stomach there was a small hiatal hernia there was also a small antral nodule of unclear significance this was biopsied this measures about a centimeter The duodenum this was normal ESTIMATED BLOOD LOSS: None SPECIMENS REMOVED: Antral biopsy COMPLICATIONS: None IMPRESSION: Small hiatal hernia Antral nodule PLAN: Await biopsy Continue with current supportive care Monitor labs Advance diet to low-fat Consider outpatient EUS Gregg Ortega MD Dec 16, 2016 11:13
[2016-12-16] MEDS ORDERED: DO NOT ADM ANY ANTICOAGULANT DRUGS XX PRN (12:00)
[2016-12-16] MEDS ORDERED: PROPOFOL 200 MG/20 ML AMP IV ONE (12:10)
[2016-12-16] MEDS: LIPASE/PROTEASE/AMYLASE (12,000/38,000/60,000) CAP PO SCH ×3 (12:48→18:25)
[2016-12-16] MEDS: ACETAMINOPHEN/HYDROcodone 325 MG/5 MG TAB PO PRN (12:48)
[2016-12-16 13:51] LABS: BICARBONATE 20.9 MEQ/L (21.0-32.0); POTASSIUM 4.4 MEQ/L (3.5-5.1)
--- NOTE | 2016-12-16 13:53 | HHI.PR ---
Subjective Remarks Pt had EGD this AM. Pt told PT that she was too painful today to ambulate. Pt c/o vomiting, but per nursing only brought up small amount of phlegm. Nursing will encourage pt to eat lunch/dinner. Objective Vitals Vital Signs Date Time Temp Pulse Resp B/P Pulse Ox O2 Delivery O2 Flow Rate FiO2 12/16/16 12:00 98.2 79 18 137/77 97 12/16/16 11:30 78 16 139/71 95 12/16/16 11:20 78 16 139/71 96 12/16/16 11:10 98.7 79 16 139/70 97 12/16/16 10:36 100.6 102 16 156/76 97 12/16/16 08:00 100.6 102 18 156/76 97 12/16/16 04:00 99.4 54 16 140/77 95 12/16/16 00:00 98.7 77 18 121/68 99 12/15/16 23:16 16 12/15/16 18:08 86 20 150/70 93 12/15/16 15:59 83 18 139/68 95 12/15/16 12/15/16 12/16/16 15:00 23:00 07:00 Intake Total 1366 ml Balance 1366 ml Intake IV Total 1366 ml # Voids 1 Result Diagram: 12/16/16 0620 12/16/16 0620 Imaging Last Impressions Chest X-Ray 12/14/16 0910 Signed Impressions: Service Date/Time: Wednesday, December 14, 2016 09:23 - CONCLUSION: Thickened horizontal area of atelectasis in the right lung base. Sanjay Rodriguez MD Abdomen/Pelvis CT 12/14/16 0707 Signed Impressions: Service Date/Time: Wednesday, December 14, 2016 07:53 - CONCLUSION: 1. Patent biliary stent. Head of pancreas remains prominent with minimal peripancreatic induration, slightly increased in the interval. 2. Gastrostomy tube has been removed. 3. Moderate bibasilar parenchymal changes, stable in the interval. Jamie Tabor MD FACR A/P Problem List: (1) Chronic recurrent pancreatitis Status: Acute Plan: - pt with continued abdominal pain and nausea - poor PO intake - IVFs - narcotics prn - EGD (12/16/16) with Dr. Ortega - small hiatal hernia - antral nodule --> Bx pending - diet advanced by GI - observe - try to minimize narcotics (2) Acute on chronic kidney disease, stage 3 Status: Chronic Plan: - little improvement from admission - continue IVFs - obtain renal US - request Nephrology Consult - repeat BMP in AM (3) HTN (hypertension) Status: Chronic Plan: - metoprolol, cardizem CD (4) Anxiety Status: Chronic Problem Qualifiers (1) HTN (hypertension): Qualified Code: I10 - Essential hypertension Alexander Eddy DO Dec 16, 2016 13:53
--- NOTE | 2016-12-16 19:36 | PD.CONS ---
HPI Service Nephrology Consult Requested By Dr. Eddy Reason for Consult CKD stage IV Primary Care Physician Hong Peterson MD History of Present Illness Patient is 80-year-old the female with history of hypertension, chronic recurrent pancreatitis, CKD stage IV who follows at my office and is known to me last time seen in October 2016 with a GFR of 20, She is now admitted with recurrent abdominal pain, nausea and vomiting and her GFR is at 22. Dr. Eddy place a consult for evaluation. Review of Systems Constitutional: COMPLAINS OF: Fatigue Gastrointestinal: COMPLAINS OF: Abdominal pain, Nausea, Vomiting Past Family Social History Allergies: Coded Allergies: No Known Allergies (Verified , 12/14/16) Past Medical History Chronic kidney disease stage IV follows with undersign Recurrent pancreatitis Hypertension Anemia GERD Past Surgical History Multiple endoscopy Cholecystectomy Cataract surgery Hemorrhoid surgery ERCP Reported Medications Reported Meds & Active Scripts Active Zofran Odt (Ondansetron Odt) 4 Mg Tab 4 Mg SL Q8HR PRN May substitute non-ODT form. Lortab (Hydrocodone-Acetaminophen) 5-325 Mg Tab 1-2 Tab PO Q6H PRN Reported Pantoprazole (Pantoprazole Sodium) 40 Mg Tab 40 Mg PO BID Creon (Amylase/Lipase/Protease) 12,000-38,000-60,000 Units Cap 1 Cap PO TIDPC Metoprolol Tartrate 25 Mg Tab 25 Mg PO BID Cartia Xt (Diltiazem ER 24 HR) 120 Mg Caper 120 Mg PO DAILY Hydrocodone-Acetaminophen 5-325 mg Tab 1 Tab PO QHS PRN Sucralfate 1 Gm Tab 1 Gm PO TID on empty stomach Active Ordered Medications Current Medications Medications (Trade) Dose Ordered Sig/Kirill Route Start Time Stop Time Status Last Admin (NS Flush) 2 ml UNSCH PRN FLUSH 12/14/16 09:15 (NS Flush) 2 ml BID FLUSH 12/14/16 21:00 12/15/16 10:13 (Tylenol) 650 mg Q4H PRN PO 12/14/16 09:15 12/16/16 08:35 (Zofran Inj) 4 mg Q6H PRN IVP 12/14/16 09:15 12/15/16 23:40 (Milk Of Magnesia Liq) 30 ml Q12H PRN PO 12/14/16 09:15 Naloxone HCl 0.4 mg 0.4 mg UNSCH PRN IV 12/14/16 09:15 (NS + KCl 20 Meq Inj) 1,000 ml @ 85 mls/hr [id number] IV 12/14/16 09:15 12/16/16 08:44 (Cardizem Cd) 120 mg DAILY PO 12/15/16 09:00 12/16/16 08:36 ([place]illa 5-325 Mg) 1 tab Q6H PRN PO 12/14/16 09:15 12/16/16 12:48 (Lopressor) 25 mg BID PO 12/14/16 21:00 12/16/16 08:36 (Creon 12-38-60) 1 cap TIDPC PO 12/14/16 09:30 12/16/16 18:25 (Carafate) 1 gm TID PO 12/14/16 13:00 12/16/16 18:25 (Protonix) 40 mg BID PO 12/14/16 21:00 12/16/16 08:36 (Dilaudid Pf Inj) 0.5 mg Q6H PRN IV PUSH 12/14/16 15:30 12/16/16 15:07 (Tylenol) 650 mg Q4H PRN PO 12/15/16 14:00 12/15/16 23:25 Miscellaneous Information ALL NURSING DEPARTME... UNSCH PRN XX 12/16/16 12:00 12/17/16 11:59 Family History Noncontributory Social History Denies smoking or alcohol use Physical Exam Vital Signs Vital Signs Date Time Temp Pulse Resp B/P Pulse Ox O2 Delivery O2 Flow Rate FiO2 12/16/16 17:46 21 12/16/16 16:00 98.2 86 18 138/67 100 12/16/16 12:00 98.2 79 18 137/77 97 12/16/16 11:30 78 16 139/71 95 12/16/16 11:20 78 16 139/71 96 12/16/16 11:10 98.7 79 16 139/70 97 12/16/16 10:36 100.6 102 16 156/76 97 12/16/16 08:00 100.6 102 18 156/76 97 12/16/16 04:00 99.4 54 16 140/77 95 12/16/16 00:00 98.7 77 18 121/68 99 12/15/16 23:16 16 Physical Exam GENERAL: Well-nourished, well-developed patient. SKIN: Warm and dry. HEAD: Normocephalic. EYES: No scleral icterus. No injection or drainage. NECK: Supple, trachea midline. No JVD or lymphadenopathy. CARDIOVASCULAR: Regular rate and rhythm without murmurs, gallops, or rubs. RESPIRATORY: Breath sounds equal bilaterally. No accessory muscle use. GASTROINTESTINAL: Abdomen tender at the epigastric area, nondistended. EXTREMITIES: No cyanosis, or edema. NEUROLOGICAL: Awake, alert, and oriented x 3. Non-focal. Laboratory Laboratory Tests Test 12/16/16 12/16/16 06:20 12:35 White Blood Count 16.6 Red Blood Count 4.15 Hemoglobin 11.2 Hematocrit 34.9 Mean Corpuscular Volume 83.9 Mean Corpuscular Hemoglobin 27.0 Mean Corpuscular Hemoglobin 32.2 Concent Red Cell Distribution Width 13.8 Platelet Count 392 Mean Platelet Volume 8.3 Neutrophils (%) (Auto) 88.6 Lymphocytes (%) (Auto) 4.1 Monocytes (%) (Auto) 6.4 Eosinophils (%) (Auto) 0.5 Basophils (%) (Auto) 0.4 Neutrophils # (Auto) 14.7 Lymphocytes # (Auto) 0.7 Monocytes # (Auto) 1.1 Eosinophils # (Auto) 0.1 Basophils # (Auto) 0.1 CBC Comment DIFF FINAL Differential Comment Sodium Level 139 139 Potassium Level 4.4 4.4 Chloride Level 107 106 Carbon Dioxide Level 21.8 20.9 Anion Gap 10 12 Blood Urea Nitrogen 24 23 Creatinine 2.47 2.51 Estimat Glomerular Filtration 23 22 Rate Random Glucose 134 113 Calcium Level 9.1 8.8 Magnesium Level 2.0 Lipase 353 Date/Time Procedure Status Source Growth 12/14/16 09:30 Urine Culture - Final Complete Urine Random Urine 10-50,000 CFU/ML MIXED DINORAH... Result Diagram: 12/16/16 0620 12/16/16 1235 Imaging Last Impressions Chest X-Ray 12/14/16 0910 Signed Impressions: Service Date/Time: Wednesday, December 14, 2016 09:23 - CONCLUSION: Thickened horizontal area of atelectasis in the right lung base. Sanjay Rodriguez MD Abdomen/Pelvis CT 12/14/16 0707 Signed Impressions: Service Date/Time: Wednesday, December 14, 2016 07:53 - CONCLUSION: 1. Patent biliary stent. Head of pancreas remains prominent with minimal peripancreatic induration, slightly increased in the interval. 2. Gastrostomy tube has been removed. 3. Moderate bibasilar parenchymal changes, stable in the interval. Jamie Tabor MD FACR Assessment and Plan Problem List: (1) CKD (chronic kidney disease) stage 4, GFR 15-29 ml/min Plan: Patient has been followed at the office and her creatinine remains stable at 2.5 she has a follow-up appointment in February At this point the I agree with current recommendation of hydration during her recent episode of pancreatitis Nothing further to add from renal point of view She can be followed as an outpatient (2) Chronic recurrent pancreatitis Plan: Patient is followed by GI specialist (3) HTN (hypertension) Plan: Continue to monitor blood pressure Problem Qualifiers (1) HTN (hypertension): Qualified Code: I10 - Essential hypertension Arnaldo Melara MD Dec 16, 2016 19:36
[2016-12-17] VITALS (7 sets, daily range): BP systolic 133–150; BP diastolic 68–83; PULSE 75–96; RESP 16–18; TEMP 97.3–99.5; O2SAT 93–100
[2016-12-17] MEDS: METOPROLOL TARTRATE 25 MG TAB PO SCH ×2 (08:32→21:37)
[2016-12-17] MEDS: SUCRALFATE 1 GM TAB PO SCH ×3 (08:32→16:37)
[2016-12-17] MEDS: PANTOPRAZOLE SOD 40 MG DELAYED RELEASE TAB PO SCH ×2 (08:32→21:36)
[2016-12-17] MEDS: LIPASE/PROTEASE/AMYLASE (12,000/38,000/60,000) CAP PO SCH ×3 (08:32→16:37)
[2016-12-17] MEDS: DILTIAZEM-CD 120 MG CAP ER PO SCH (08:32)
[2016-12-17] MEDS: SODIUM CHLORIDE 0.9% FLUSH 5 ML FLUSH FLUSH SCH ×2 (08:33→21:37)
[2016-12-17] MEDS: ONDANSETRON HCL 4 MG/2 ML VIAL IVP PRN ×2 (08:38→18:57)
--- NOTE | 2016-12-17 09:53 | HHI.PR ---
Subjective Remarks Pt reports that her abd pain is improving. She is going to attempt to eat solid foods this morning for breakfast. Afebrile. Objective Vitals Vital Signs Date Time Temp Pulse Resp B/P Pulse Ox O2 Delivery O2 Flow Rate FiO2 12/17/16 09:13 97 21 12/17/16 08:00 99.5 89 16 144/78 97 12/17/16 04:00 99.3 96 18 150/83 93 12/17/16 00:00 99.5 86 16 144/69 100 12/16/16 20:00 99.0 94 16 152/76 95 12/16/16 17:46 21 12/16/16 16:00 98.2 86 18 138/67 100 12/16/16 12:00 98.2 79 18 137/77 97 12/16/16 11:30 78 16 139/71 95 12/16/16 11:20 78 16 139/71 96 12/16/16 11:10 98.7 79 16 139/70 97 12/16/16 10:36 100.6 102 16 156/76 97 12/16/16 12/16/16 12/17/16 15:00 23:00 07:00 Intake Total 300 ml 240 ml 1643 ml Output Total 700 ml 500 ml 550 ml Balance -400 ml -260 ml 1093 ml Intake Oral 0 ml 240 ml 150 ml IV Total 1493 ml Other 300 ml Output Urine Total 700 ml 500 ml 550 ml Result Diagram: 12/16/16 0620 12/16/16 1235 Other Results Laboratory Tests Test 12/16/16 12/16/16 12/17/16 06:20 12:35 06:13 White Blood Count 16.6 TH/MM3 Red Blood Count 4.15 MIL/MM3 Hemoglobin 11.2 GM/DL Hematocrit 34.9 % Mean Corpuscular Volume 83.9 FL Mean Corpuscular Hemoglobin 27.0 PG Mean Corpuscular Hemoglobin 32.2 % Concent Red Cell Distribution Width 13.8 % Platelet Count 392 TH/MM3 Mean Platelet Volume 8.3 FL Neutrophils (%) (Auto) 88.6 % Lymphocytes (%) (Auto) 4.1 % Monocytes (%) (Auto) 6.4 % Eosinophils (%) (Auto) 0.5 % Basophils (%) (Auto) 0.4 % Neutrophils # (Auto) 14.7 TH/MM3 Lymphocytes # (Auto) 0.7 TH/MM3 Monocytes # (Auto) 1.1 TH/MM3 Eosinophils # (Auto) 0.1 TH/MM3 Basophils # (Auto) 0.1 TH/MM3 CBC Comment DIFF FINAL Differential Comment Sodium Level 139 MEQ/L 139 MEQ/L Potassium Level 4.4 MEQ/L 4.4 MEQ/L Chloride Level 107 MEQ/L 106 MEQ/L Carbon Dioxide Level 21.8 MEQ/L 20.9 MEQ/L Anion Gap 10 MEQ/L 12 MEQ/L Blood Urea Nitrogen 24 MG/DL 23 MG/DL Creatinine 2.47 MG/DL 2.51 MG/DL Estimat Glomerular Filtration 23 ML/MIN 22 ML/MIN Rate Random Glucose 134 MG/DL 113 MG/DL Calcium Level 9.1 MG/DL 8.8 MG/DL Magnesium Level 2.0 MG/DL Lipase 353 U/L 462 U/L Imaging Last Impressions Chest X-Ray 12/14/16 0910 Signed Impressions: Service Date/Time: Wednesday, December 14, 2016 09:23 - CONCLUSION: Thickened horizontal area of atelectasis in the right lung base. Sanjay Rodriguez MD Abdomen/Pelvis CT 12/14/16 0707 Signed Impressions: Service Date/Time: Wednesday, December 14, 2016 07:53 - CONCLUSION: 1. Patent biliary stent. Head of pancreas remains prominent with minimal peripancreatic induration, slightly increased in the interval. 2. Gastrostomy tube has been removed. 3. Moderate bibasilar parenchymal changes, stable in the interval. Jamie Tabor MD FACR Objective Remarks General: NAD, AAOx3 Chest: CTA bilaterally Cardiac: Regular Abd: +BS, soft nondistended, mild tenderness in upper abdomen Ext: No edema A/P Problem List: (1) Chronic recurrent pancreatitis Status: Acute Plan: - pt with continued abdominal pain and nausea - poor PO intake - IVFs - narcotics prn - EGD (12/16/16) with Dr. Ortega - small hiatal hernia - antral nodule --> Bx pending - diet advanced by GI - observe - try to minimize narcotics - If tolerating diet, anticipate discharge tomorrow (2) Acute on chronic kidney disease, stage 3 Status: Chronic Plan: - little improvement from admission - continue IVFs - Appreciate Nephrology Consult, recommend continue current management plan and followup outpt - repeat BMP in AM - Renal US ordered (3) HTN (hypertension) Status: Chronic Plan: - metoprolol, cardizem CD (4) Anxiety Status: Chronic Assessment and Plan Patient examined. Assessment and plan formulated with Guadalupe Monson PA-C. I agree with the above. Problem Qualifiers (1) HTN (hypertension): Qualified Code: I10 - Essential hypertension Guadalupe Monson Dec 17, 2016 09:53 Alexander Eddy DO Dec 23, 2016 08:26
[2016-12-17] MEDS: HYDROmorphone HCL PF 1 MG/ML VIAL IV PUSH PRN ×3 (10:01→23:07)
--- NOTE | 2016-12-17 12:26 | HHI.GIFU ---
Subjective Remarks Pt doing much better Tolerating diet. Pain improving and well controlled. No n/v. (Edwina Dodge) Objective Vitals I&O Vital Signs Date Time Temp Pulse Resp B/P Pulse Ox O2 Delivery O2 Flow Rate FiO2 12/17/16 09:13 97 21 12/17/16 08:00 99.5 89 16 144/78 97 12/17/16 04:00 99.3 96 18 150/83 93 12/17/16 00:00 99.5 86 16 144/69 100 12/16/16 20:00 99.0 94 16 152/76 95 12/16/16 17:46 21 12/16/16 16:00 98.2 86 18 138/67 100 I/O 12/16/16 12/16/16 12/16/16 12/17/16 12/17/16 12/17/16 07:00 15:00 23:00 07:00 15:00 23:00 Intake Total 1366 ml 300 ml 240 ml 1643 ml Output Total 700 ml 500 ml 550 ml Balance 1366 ml -400 ml -260 ml 1093 ml Intake Oral 0 ml 240 ml 150 ml IV Total 1366 ml 1493 ml Other 300 ml Output Urine Total 700 ml 500 ml 550 ml # Voids 1 Laboratory Laboratory Tests Test 12/16/16 12/17/16 12:35 06:13 Sodium Level 139 Potassium Level 4.4 Chloride Level 106 Carbon Dioxide Level 20.9 Anion Gap 12 Blood Urea Nitrogen 23 Creatinine 2.51 Estimat Glomerular Filtration 22 Rate Random Glucose 113 Calcium Level 8.8 Lipase 462 Date/Time Procedure Status Source Growth 12/14/16 09:30 Urine Culture - Final Complete Urine Random Urine 10-50,000 CFU/ML MIXED DINORAH... Imaging Last Impressions Chest X-Ray 12/14/16 0910 Signed Impressions: Service Date/Time: Wednesday, December 14, 2016 09:23 - CONCLUSION: Thickened horizontal area of atelectasis in the right lung base. Sanjay Rodriguez MD Abdomen/Pelvis CT 12/14/16 0707 Signed Impressions: Service Date/Time: Wednesday, December 14, 2016 07:53 - CONCLUSION: 1. Patent biliary stent. Head of pancreas remains prominent with minimal peripancreatic induration, slightly increased in the interval. 2. Gastrostomy tube has been removed. 3. Moderate bibasilar parenchymal changes, stable in the interval. Jamie Tabor MD FACR Physical Exam HEENT: Normocephalic; atraumatic; no jaundice. CHEST: Chest is clear to auscultation and percussion. CARDIAC: RRR. ABDOMEN: Soft, nondistended, nontender; no hepatosplenomegaly; bowel sounds are present in all four quadrants. EXTREMITIES: No clubbing, cyanosis, or edema. SKIN: Normal; no rash; no jaundice. [employer]CRAFT [employer] CLE[employer]ER: No focal deficits; alert and oriented times three. (DodgeEdwina Nathanissa [facility]) Assessment and Plan Plan ASSESSMENT: - Recurrent pancreatitis. Pt with hx of idiopathic recurrent pancreatitis, s/p extensive workup for her recurrent pancreatitis with MRCP, ERCP with sphincterotomy for suspected sphincter dysfunction vs. microlithiasis, Ig4 level, EUS, Triglycerides, and tertiary evaluation. She had a prolonged hospitalization in November/December of last year for her pancreatitis and was evaluated with ERCP with stent placement (11/22/15), exchange on (12/11/15) for suspected biliary sepsis and G/J tube placement. She then had EGD with biopsy, GJ tube repositioning, ERCP with stent removal , biliary dilation with CRE balloon, balloon extraction, and wall stent, EUS ()------> unremarkable EUS of the pancrease, a stent was noted in the CBD, but otherwise was normla, prior sphincterotomy but otherwise normal, distal cbd stricture, smooth benign, this was dilated with CRE balloon 10mm post dil still significant narrowing and as such a full cover 10 lux[place]bourgish 6 cm wall stent was placed, positioning satisfactory, prior to stent placement a 15 mm balloon was used to clear the bile duct and no stones were noted, intrahepatic biliary tree normal, not dilated, normal esophagus, hiatal hernia, large antral ulcer, clean based, this was biopsied. Pathology of antral ulcer with predominantly necroinflammatory exudate consistent with ulceration, with rare detached fragments of benign gastric mucosa. She was last seen in our office in April of 2016, at which time she was doing very well and her ursodiol, reglan, and g/j tube was discontinued. CT scan abdomen and pelvis without contrast (12/14/16)----> patent biliary stent. Head of pancreas remains promient with minimal peripancreatic induration slightly increased in the interval, gastrostomy tube has been removed, moderate bibasilar parenchymal changes, stable in the interval. LFT unremarkable other than elevated alk. phosp 188. S/P Cholecystectomy. S /P EGD (12/16/16)---> small hiatal hernia, antral nodule. Pathology pending. Lipase improving. Pain is much improved, tolerating low fat diet. - Leukocytosis/Fever. 16.6. Low grade fevers - WAYNE. Creat. 2.51. IVF. Renal US pending. - Anemia. 11.2/34.9. Did have gastric ulcer on last endoscopy in january of 2016. No obvious GI bleeding. Prior to that she had EGD/Colonoscopy (10/04/15) and this revealed an ulcer at the GE junction, thick gastric fold at pre-pyloric area, mild gastritis, duodenal inflammation in the bulb and second portion of the duodenum, small polyp in the ascending colon, and moderate internal hemorrhoids. Pathology revealed gastric antral mucosal biopsies with mild chronic gastritis exhibiting histopathologic features consistent with chemical gastropathy as may be seen with bile reflux, nonsteroidal anti-inflammatory drugs or other drug induced disease negative for intestinal metaplasia and dysplasia, gricelda stain negative for helicobacter, gastroesophageal mucosal biopsy with inflammatory changes consistent with reflux negative for intestinal metaplasia and dysplasia, colonic mucosa with adenomatous polyp. PLAN: - Low fat diet - Await pathology - PPI - IVF - Consider EUS as outpatient - Pt seen and examined by Dr. Ortega and myself and this note is written on his behalf (Edwina Dodge) Physician Comments Patient seen and examined Agree with above Continue with current supportive care Monitor labs If patient continues to do well possibly may be discharged home to follow-up with GI as an outpatient (Gregg Ortega MD) Edwina Dodge Dec 17, 2016 12:25 Gregg Ortega MD Dec 17, 2016 19:24
--- NOTE | 2016-12-17 13:13 | RADRPT ---
EXAM DATE/TIME: 12/17/2016 11:26 [place] COMPARISON: CTA ABDOMEN & PELVIS W 3D RECON, December 27, 2015, 12:24. CT ABDOMEN & PELVIS W/O CONTRAST, December 14, 2016, 7:53. INDICATIONS : Increased BUN/creatinine. MEDICAL HISTORY : Hypercholesterolemia. Pancreatitis. Hernia, hiatal. Chest pain. Afib. HTN. Abdominal pain. GERD. Shanice l disease. Arthritis. Substance use. SURGICAL HISTORY : Cholecystectomy. Hemorrhoidectomy. Total knee replacement, left. Right cataract surgery. Sphincteroto my. Blood transfusions. ENCOUNTER: Initial ACUITY: 1 day PAIN SCORE: 0/10 LOCATION: Bilateral flank MEASUREMENTS: RIGHT KIDNEY: 9.0 x 5.3 x 6.0 cm LEFT KIDNEY: 8.0 x 3.7 x 4.3 cm FINDINGS: Kidneys are echogenic. No hydronephrosis. There is a simple cyst along the upper pole right kidney me asuring 18 x 18 x 15 mm. Hypoechoic lesion seen partially exophytic along the right mid kidney measur ing 12 x 12 x 8 mm. Simple cyst left mid kidney measures 13 x 12 x 5 mm. Echogenic lesion in the sple en measures 19 mm. Bladder is not well-distended but appears unremarkable. CONCLUSION: 1. Echogenic kidneys which can be seen with medical renal disease. 2. Bilateral renal cysts. 3. Echogenic splenic lesion likely benign and may be related to hemangioma. 4. Hypoechoic lesion on the right mid kidney may be related to a complex cyst. Followup sonogram in 6 months recommended for stability. Yunier Santana MD on December 17, 2016 at 13:08 Board Certified Radiologist. This report was verified electronically.
[2016-12-17] MEDS: NS + KCL 20 MEQ INJ 1,000 ML IV SCH (16:42)
[2016-12-17] MEDS: ACETAMINOPHEN/HYDROcodone 325 MG/5 MG TAB PO PRN (21:37)
[2016-12-18] VITALS (8 sets, daily range): BP systolic 139–164; BP diastolic 67–85; PULSE 73–88; RESP 16–24; TEMP 96.7–98.7; O2SAT 94–98
[2016-12-18] MEDS: ACETAMINOPHEN 325 MG TAB PO PRN ×2 (02:34→11:07)
[2016-12-18] MEDS: NS + KCL 20 MEQ INJ 1,000 ML IV SCH ×3 (04:10→13:42)
[2016-12-18] MEDS: ACETAMINOPHEN/HYDROcodone 325 MG/5 MG TAB PO PRN (04:10)
[2016-12-18] MEDS: HYDROmorphone HCL PF 1 MG/ML VIAL IV PUSH PRN ×3 (06:12→20:16)
[2016-12-18 07:15] LABS: AUTOMATED NEUTROPHIL # 7.4 TH/MM3 (1.8-7.7); BASOPHIL # 0.1 TH/MM3 (0-0.2); BASOPHIL % 0.7 % (0.0-2.0); EOSINOPHIL # 0.3 TH/MM3 (0-0.4); EOSINOPHIL % 2.8 % (0.0-4.0); HEMATOCRIT 31.2 % (35.0-46.0); HEMO FLAGS DIFF FINAL; LYMPH % 15.2 % (9.0-44.0); LYMPHOCYTE # 1.5 TH/MM3 (1.0-4.8); MEAN CORPUSCULAR HEMOGLOBIN 28.4 PG (27.0-34.0); MEAN CORPUSCULAR HGB CONC 33.9 % (32.0-36.0); MONO % 6.6 % (0.0-8.0); NEUT % 74.7 % (16.0-70.0); PLATELET COUNT 393 TH/MM3 (150-450); RED BLOOD COUNT 3.72 MIL/MM3 (4.00-5.30); RED CELL DISTRIBUTION WIDTH 13.9 % (11.6-17.2)
[2016-12-18 07:24] LABS: BICARBONATE 21.5 MEQ/L (21.0-32.0); POTASSIUM 4.3 MEQ/L (3.5-5.1)
[2016-12-18] MEDS: DILTIAZEM-CD 120 MG CAP ER PO SCH (08:20)
[2016-12-18] MEDS: METOPROLOL TARTRATE 25 MG TAB PO SCH ×2 (08:20→20:20)
[2016-12-18] MEDS: SUCRALFATE 1 GM TAB PO SCH ×3 (08:20→18:18)
[2016-12-18] MEDS: PANTOPRAZOLE SOD 40 MG DELAYED RELEASE TAB PO SCH ×2 (08:20→20:20)
[2016-12-18] MEDS: ONDANSETRON HCL 4 MG/2 ML VIAL IVP PRN ×3 (08:20→20:16)
[2016-12-18] MEDS: LIPASE/PROTEASE/AMYLASE (12,000/38,000/60,000) CAP PO SCH ×3 (08:21→18:18)
[2016-12-18] MEDS: SODIUM CHLORIDE 0.9% FLUSH 5 ML FLUSH FLUSH SCH ×2 (08:21→20:20)
--- NOTE | 2016-12-18 13:06 | HHI.GIFU ---
Subjective Remarks Resting in bed. Has mild epigastric discomfort, controlled with pain meds. Tolerating diet, afebrile overnight (Edwina Dodge) Objective Vitals I&O Vital Signs Date Time Temp Pulse Resp B/P Pulse Ox O2 Delivery O2 Flow Rate FiO2 12/18/16 12:00 97.5 73 16 152/77 95 12/18/16 10:25 98 21 12/18/16 08:00 97.5 79 16 143/67 95 12/18/16 05:30 19 12/18/16 04:00 96.7 76 18 139/76 94 12/18/16 03:52 20 12/18/16 01:19 20 12/18/16 00:00 98.2 80 17 149/85 98 12/17/16 20:00 99.2 82 18 137/68 98 12/17/16 16:00 97.3 85 16 149/68 99 I/O 12/17/16 12/17/16 12/17/16 12/18/16 12/18/16 12/18/16 07:00 15:00 23:00 07:00 15:00 23:00 Intake Total 1643 ml 955 ml 1617 ml 240 ml 480 ml Output Total 550 ml 700 ml 500 ml 200 ml 1903 ml Balance 1093 ml 255 ml 1117 ml 40 ml -1423 ml Intake Oral 150 ml 240 ml 960 ml 240 ml 480 ml IV Total 1493 ml 715 ml 657 ml Output Urine Total 550 ml 700 ml 500 ml 200 ml 1900 ml Emesis 3 ml # Bowel Movements 1 0 0 1 Laboratory Laboratory Tests Test 12/18/16 05:06 White Blood Count 10.0 Red Blood Count 3.72 Hemoglobin 10.6 Hematocrit 31.2 Mean Corpuscular Volume 84.0 Mean Corpuscular Hemoglobin 28.4 Mean Corpuscular Hemoglobin 33.9 Concent Red Cell Distribution Width 13.9 Platelet Count 393 Mean Platelet Volume 7.8 Neutrophils (%) (Auto) 74.7 Lymphocytes (%) (Auto) 15.2 Monocytes (%) (Auto) 6.6 Eosinophils (%) (Auto) 2.8 Basophils (%) (Auto) 0.7 Neutrophils # (Auto) 7.4 Lymphocytes # (Auto) 1.5 Monocytes # (Auto) 0.7 Eosinophils # (Auto) 0.3 Basophils # (Auto) 0.1 CBC Comment DIFF FINAL Differential Comment Sodium Level 141 Potassium Level 4.3 Chloride Level 109 Carbon Dioxide Level 21.5 Anion Gap 11 Blood Urea Nitrogen 24 Creatinine 2.34 Estimat Glomerular Filtration 24 Rate Random Glucose 72 Calcium Level 8.7 Magnesium Level 2.0 Date/Time Procedure Status Source Growth 12/14/16 09:30 Urine Culture - Final Complete Urine Random Urine 10-50,000 CFU/ML MIXED DINORAH... Imaging Last Impressions Renal Ultrasound 12/17/16 0000 Signed Impressions: Service Date/Time: December 11:26 - CONCLUSION: 1. Echogenic kidneys which can be seen with medical renal disease. 2. Bilateral renal cysts. 3. Echogenic splenic lesion likely benign and may be related to hemangioma. 4. Hypoechoic lesion on the right mid kidney may be related to a complex cyst. Followup sonogram in 6 months recommended for stability. Yunier Santana MD Chest X-Ray 12/14/16 0910 Signed Impressions: Service Date/Time: Wednesday, December 14, 2016 09:23 - CONCLUSION: Thickened horizontal area of atelectasis in the right lung base. Sanjay Rodriguez MD Abdomen/Pelvis CT 12/14/16 0707 Signed Impressions: Service Date/Time: Wednesday, December 14, 2016 07:53 - CONCLUSION: 1. Patent biliary stent. Head of pancreas remains prominent with minimal peripancreatic induration, slightly increased in the interval. 2. Gastrostomy tube has been removed. 3. Moderate bibasilar parenchymal changes, stable in the interval. Jamie Tabor MD FACR Physical Exam HEENT: Normocephalic; atraumatic; no jaundice. CHEST: Chest is clear to auscultation and percussion. CARDIAC: RRR. ABDOMEN: Soft, nondistended, mild epigastric tenderness; no hepatosplenomegaly ; bowel sounds are present in all four quadrants. EXTREMITIES: No clubbing, cyanosis, or edema. SKIN: Normal; no rash; no jaundice. HAND ROLLER: No focal deficits; alert and oriented times three. (Edwina Dodge [facility]) Assessment and Plan Plan ASSESSMENT: - Recurrent pancreatitis. Pt with hx of idiopathic recurrent pancreatitis, s/p extensive workup for her recurrent pancreatitis with MRCP, ERCP with sphincterotomy for suspected sphincter dysfunction vs. microlithiasis, Ig4 level, EUS, Triglycerides, and tertiary evaluation. She had a prolonged hospitalization in November/December of last year for her pancreatitis and was evaluated with ERCP with stent placement (11/22/15), exchange on (12/11/15) for suspected biliary sepsis and G/J tube placement. She then had EGD with biopsy, GJ tube repositioning, ERCP with stent removal , biliary dilation with CRE balloon, balloon extraction, and wall stent, EUS ()------> unremarkable EUS of the pancrease, a stent was noted in the CBD, but otherwise was normla, prior sphincterotomy but otherwise normal, distal cbd stricture, smooth benign, this was dilated with CRE balloon 10mm post dil still significant narrowing and as such a full cover 10 green[place]ic 6 cm wall stent was placed, positioning satisfactory, prior to stent placement a 15 mm balloon was used to clear the bile duct and no stones were noted, intrahepatic biliary tree normal, not dilated, normal esophagus, hiatal hernia, large antral ulcer, clean based, this was biopsied. Pathology of antral ulcer with predominantly necroinflammatory exudate consistent with ulceration, with rare detached fragments of benign gastric mucosa. She was last seen in our office in April of 2016, at which time she was doing very well and her ursodiol, reglan, and g/j tube was discontinued. CT scan abdomen and pelvis without contrast (12/14/16)----> patent biliary stent. Head of pancreas remains promient with minimal peripancreatic induration slightly increased in the interval, gastrostomy tube has been removed, moderate bibasilar parenchymal changes, stable in the interval. LFT unremarkable other than elevated alk. phosp 188. S/P Cholecystectomy. S /P EGD (12/16/16)---> small hiatal hernia, antral nodule. Pathology reactive/ chemical gastropathy. Lipase improving. Pain is much improved, tolerating low fat diet. Afebrile over night. okay to d/c home from GI standpoint. - Leukocytosis/Fever. 10.0. Low grade fevers - WAYNE. Creat. 2.51. IVF. Renal US pending. - Anemia. 10.6/31.2. Did have gastric ulcer on last endoscopy in january of 2016. No obvious GI bleeding. Prior to that she had EGD/Colonoscopy (10/04/15) and this revealed an ulcer at the GE junction, thick gastric fold at pre-pyloric area, mild gastritis, duodenal inflammation in the bulb and second portion of the duodenum, small polyp in the ascending colon, and moderate internal hemorrhoids. Pathology revealed gastric antral mucosal biopsies with mild chronic gastritis exhibiting histopathologic features consistent with chemical gastropathy as may be seen with bile reflux, nonsteroidal anti-inflammatory drugs or other drug induced disease negative for intestinal metaplasia and dysplasia, gricelda stain negative for helicobacter, gastroesophageal mucosal biopsy with inflammatory changes consistent with reflux negative for intestinal metaplasia and dysplasia, colonic mucosa with adenomatous polyp. Rpt. EGD as above PLAN: - Okay to DC from GI standpoint - Low fat diet - PPI - Follow-up advanced GI in 2 weeks - Consider EUS as outpatient - Pt seen and examined by Dr. Ortega and myself and this note is written on his behalf (Edwina Dodge) Physician Comments Patient seen and examined Agree with above Continue with current supportive care Monitor labs Follow-up with GI post discharge (Gregg Ortega MD) Edwina Dodge Dec 18, 2016 13:06 Gregg Ortega MD Dec 18, 2016 16:59
--- NOTE | 2016-12-18 15:00 | HHI.PR ---
Subjective Remarks Pt states that she has had increased pain last night and this morning She is requesting more pain medication She states that she has had vomiting last night and this morning. Objective Vitals Vital Signs Date Time Temp Pulse Resp B/P Pulse Ox O2 Delivery O2 Flow Rate FiO2 12/18/16 12:00 97.5 73 16 152/77 95 12/18/16 10:25 98 21 12/18/16 08:00 97.5 79 16 143/67 95 12/18/16 05:30 19 12/18/16 04:00 96.7 76 18 139/76 94 12/18/16 03:52 20 12/18/16 01:19 20 12/18/16 00:00 98.2 80 17 149/85 98 12/17/16 20:00 99.2 82 18 137/68 98 12/17/16 16:00 97.3 85 16 149/68 99 12/17/16 12/17/16 12/18/16 15:00 23:00 07:00 Intake Total 955 ml 1617 ml 240 ml Output Total 700 ml 500 ml 200 ml Balance 255 ml 1117 ml 40 ml Intake Oral 240 ml 960 ml 240 ml IV Total 715 ml 657 ml Output Urine Total 700 ml 500 ml 200 ml # Bowel Movements 1 0 0 Result Diagram: 12/18/16 0506 12/18/16 0506 Other Results Laboratory Tests Test 12/17/16 12/18/16 06:13 05:06 Lipase 462 U/L White Blood Count 10.0 TH/MM3 Red Blood Count 3.72 MIL/MM3 Hemoglobin 10.6 GM/DL Hematocrit 31.2 % Mean Corpuscular Volume 84.0 FL Mean Corpuscular Hemoglobin 28.4 PG Mean Corpuscular Hemoglobin 33.9 % Concent Red Cell Distribution Width 13.9 % Platelet Count 393 TH/MM3 Mean Platelet Volume 7.8 FL Neutrophils (%) (Auto) 74.7 % Lymphocytes (%) (Auto) 15.2 % Monocytes (%) (Auto) 6.6 % Eosinophils (%) (Auto) 2.8 % Basophils (%) (Auto) 0.7 % Neutrophils # (Auto) 7.4 TH/MM3 Lymphocytes # (Auto) 1.5 TH/MM3 Monocytes # (Auto) 0.7 TH/MM3 Eosinophils # (Auto) 0.3 TH/MM3 Basophils # (Auto) 0.1 TH/MM3 CBC Comment DIFF FINAL Differential Comment Sodium Level 141 MEQ/L Potassium Level 4.3 MEQ/L Chloride Level 109 MEQ/L Carbon Dioxide Level 21.5 MEQ/L Anion Gap 11 MEQ/L Blood Urea Nitrogen 24 MG/DL Creatinine 2.34 MG/DL Estimat Glomerular Filtration 24 ML/MIN Rate Random Glucose 72 MG/DL Calcium Level 8.7 MG/DL Magnesium Level 2.0 MG/DL Imaging Last Impressions Renal Ultrasound 12/17/16 0000 Signed Impressions: Service Date/Time: December 11:26 - CONCLUSION: 1. Echogenic kidneys which can be seen with medical renal disease. 2. Bilateral renal cysts. 3. Echogenic splenic lesion likely benign and may be related to hemangioma. 4. Hypoechoic lesion on the right mid kidney may be related to a complex cyst. Followup sonogram in 6 months recommended for stability. Yunier Santana MD Chest X-Ray 12/14/16 0910 Signed Impressions: Service Date/Time: Wednesday, December 14, 2016 09:23 - CONCLUSION: Thickened horizontal area of atelectasis in the right lung base. Sanjay Rodriguez MD Abdomen/Pelvis CT 12/14/16 0707 Signed Impressions: Service Date/Time: Wednesday, December 14, 2016 07:53 - CONCLUSION: 1. Patent biliary stent. Head of pancreas remains prominent with minimal peripancreatic induration, slightly increased in the interval. 2. Gastrostomy tube has been removed. 3. Moderate bibasilar parenchymal changes, stable in the interval. Jamie Tabor MD FACR Objective Remarks General: NAD, AAOx3 Chest: CTA bilaterally Cardiac: Regular Abd: +BS, soft nondistended, mild tenderness in upper abdomen Ext: No edema A/P Problem List: (1) Chronic recurrent pancreatitis Status: Acute Plan: - pt with continued abdominal pain and nausea - poor PO intake - IVFs - narcotics prn - EGD (12/16/16) with Dr. Ortega - small hiatal hernia - antral nodule --> Bx pending - diet advanced by GI - observe - Pt reports increased pain/nausea/vomiting today - try to minimize narcotics - Decrease diet back to liquids (2) Acute on chronic kidney disease, stage 3 Status: Chronic Plan: - little improvement from admission - continue IVFs - Appreciate Nephrology Consult, recommend continue current management plan and followup outpt - repeat BMP in AM - Renal US (12/17/16) --> Echogenic kidneys which can be seen with medical renal disease. Bilateral renal cysts. Echogenic splenic lesion likely benign and may be related to hemangioma. Hypoechoic lesion on the right mid kidney may be related to a complex cyst. Followup sonogram in 6 months recommended for stability. (3) HTN (hypertension) Status: Chronic Plan: - metoprolol, cardizem CD (4) Anxiety Status: Chronic Assessment and Plan Patient examined. Assessment and plan formulated with Guadalupe Monson PA-C. I agree with the above. Problem Qualifiers (1) HTN (hypertension): Qualified Code: I10 - Essential hypertension Guadalupe Monson Dec 18, 2016 15:00 Alexander Eddy DO Dec 23, 2016 08:26
[2016-12-18] MEDS ORDERED: HYDROmorphone HCL PF 1 MG/ML VIAL IV PUSH ONE (15:30)
[2016-12-19] VITALS (9 sets, daily range): BP systolic 148–183; BP diastolic 72–105; PULSE 80–98; RESP 17–20; TEMP 97.1–98.8; O2SAT 95–98
[2016-12-19] MEDS: ACETAMINOPHEN/HYDROcodone 325 MG/5 MG TAB PO PRN ×2 (00:36→20:09)
[2016-12-19] MEDS: ONDANSETRON HCL 4 MG/2 ML VIAL IVP PRN ×3 (02:29→18:06)
[2016-12-19] MEDS: HYDROmorphone HCL PF 1 MG/ML VIAL IV PUSH PRN ×4 (02:29→22:15)
[2016-12-19] MEDS: ACETAMINOPHEN 325 MG TAB PO PRN ×3 (05:43→23:47)
[2016-12-19] MEDS: SUCRALFATE 1 GM TAB PO SCH ×3 (08:13→15:57)
[2016-12-19] MEDS: METOPROLOL TARTRATE 25 MG TAB PO SCH ×2 (08:13→20:09)
[2016-12-19] MEDS: PANTOPRAZOLE SOD 40 MG DELAYED RELEASE TAB PO SCH ×2 (08:13→20:09)
[2016-12-19] MEDS: DILTIAZEM-CD 120 MG CAP ER PO SCH (08:13)
[2016-12-19] MEDS: SODIUM CHLORIDE 0.9% FLUSH 5 ML FLUSH FLUSH SCH ×2 (08:14→20:10)
[2016-12-19] MEDS: LIPASE/PROTEASE/AMYLASE (12,000/38,000/60,000) CAP PO SCH ×3 (08:14→17:25)
[2016-12-19] MEDS ORDERED: HYDROmorphone HCL PF 1 MG/ML VIAL IV PUSH PRN (10:15)
[2016-12-19] MEDS ORDERED: LORazepam 2 MG/ML VIAL IV PUSH PRN (10:45)
--- NOTE | 2016-12-19 10:46 | HHI.PR ---
Subjective Remarks Pt c/o increased abdominal pain, screaming loudly, and requesting additional pain medication. Pt states that abdominal pain started this AM around 6AM. Pt screaming, but stopped when I entered the room and started talking to her. Abdominal exam is non-focal and she does NOT appear to have pain on palpation with distraction. Suspect some secondary gain. Objective Vitals Vital Signs Date Time Temp Pulse Resp B/P Pulse Ox O2 Delivery O2 Flow Rate FiO2 12/19/16 07:56 97.1 86 20 161/84 97 12/19/16 07:19 19 12/19/16 04:00 98.4 86 17 158/72 95 12/19/16 03:23 20 12/19/16 01:45 19 12/19/16 00:00 98.0 82 17 150/76 96 12/18/16 20:11 94 12/18/16 20:00 98.7 88 17 159/72 96 12/18/16 16:00 97.7 82 24 164/84 97 12/18/16 12:00 97.5 73 16 152/77 95 12/18/16 12/18/16 12/19/16 15:00 23:00 07:00 Intake Total 1194 ml 240 ml 240 ml Output Total 1903 ml 502 ml Balance -709 ml -262 ml 240 ml Intake Oral 480 ml 240 ml 240 ml IV Total 714 ml Output Urine Total 1900 ml 500 ml Emesis 3 ml 2 ml # Bowel Movements 1 Result Diagram: 12/18/16 0506 12/18/16 0506 Imaging Last Impressions Renal Ultrasound 12/17/16 0000 Signed Impressions: Service Date/Time: December 11:26 - CONCLUSION: 1. Echogenic kidneys which can be seen with medical renal disease. 2. Bilateral renal cysts. 3. Echogenic splenic lesion likely benign and may be related to hemangioma. 4. Hypoechoic lesion on the right mid kidney may be related to a complex cyst. Followup sonogram in 6 months recommended for stability. Yunier Santana MD Chest X-Ray 12/14/16 0910 Signed Impressions: Service Date/Time: Wednesday, December 14, 2016 09:23 - CONCLUSION: Thickened horizontal area of atelectasis in the right lung base. Sanjay Rodriguez MD Abdomen/Pelvis CT 12/14/16 0707 Signed Impressions: Service Date/Time: Wednesday, December 14, 2016 07:53 - CONCLUSION: 1. Patent biliary stent. Head of pancreas remains prominent with minimal peripancreatic induration, slightly increased in the interval. 2. Gastrostomy tube has been removed. 3. Moderate bibasilar parenchymal changes, stable in the interval. Jamie Tabor MD FACR Objective Remarks General: NAD, AAOx3 Chest: CTA bilaterally Cardiac: Regular Abd: +BS, soft nondistended, mild tenderness in upper abdomen Ext: No edema A/P Problem List: (1) Chronic recurrent pancreatitis Status: Acute Plan: - pt with continued abdominal pain and nausea - poor PO intake - EGD (12/16/16) with Dr. Ortega - small hiatal hernia - antral nodule --> Bx pending - - pt c/o increased pain today - I will give extra dose of dilaudid, but leave dosing at 0.5mg q6h prn, case confounded by likely narcotic dependency - resume NPO status - obtain repeat lipase now & in AM - IVFs - request repeat GI evaluation - ativan for agitation (2) Acute on chronic kidney disease, stage 3 Status: Chronic Plan: - little improvement from admission - continue IVFs - Appreciate Nephrology Consult, recommend continue current management plan and followup outpt - repeat BMP in AM - Renal US (12/17/16) --> Echogenic kidneys which can be seen with medical renal disease. Bilateral renal cysts. Echogenic splenic lesion likely benign and may be related to hemangioma. Hypoechoic lesion on the right mid kidney may be related to a complex cyst. Followup sonogram in 6 months recommended for stability. (3) HTN (hypertension) Status: Chronic Plan: - metoprolol, cardizem CD (4) Anxiety Status: Chronic Plan: - trial of ativan Problem Qualifiers (1) HTN (hypertension): Qualified Code: I10 - Essential hypertension Alexander Eddy DO Dec 19, 2016 10:45
[2016-12-19] MEDS ORDERED: HYDROmorphone HCL PF 1 MG/ML VIAL IV PUSH ONE (11:00)
[2016-12-19 11:47] LABS: ALKALINE PHOSPHATASE 158 U/L (45-117); ALT (GPT) 26 U/L (10-53); ANION GAP 15 MEQ/L (5-15); AST (GOT) 12 U/L (15-37); BICARBONATE 19.2 MEQ/L (21.0-32.0); BLOOD UREA NITROGEN 27 MG/DL (7-18); CHLORIDE 104 MEQ/L (98-107); GLOMERULAR FILTRATION RATE 24 ML/MIN (>89); SODIUM (NA) 138 MEQ/L (136-145); TOTAL BILIRUBIN ADULT 0.3 MG/DL (0.2-1.0)
--- NOTE | 2016-12-19 20:42 | HHI.GIFU ---
Subjective Remarks Currently comfortable in bed denies any pain denies any nausea she is on the phone talking Objective Vitals I&O Vital Signs Date Time Temp Pulse Resp B/P Pulse Ox O2 Delivery O2 Flow Rate FiO2 12/19/16 20:00 98.8 98 17 168/82 96 12/19/16 16:00 97.8 90 20 154/88 98 12/19/16 15:48 93 148/80 12/19/16 13:24 95 21 12/19/16 13:00 98.1 88 20 160/81 97 12/19/16 10:42 97.9 80 20 183/105 98 12/19/16 07:56 97.1 86 20 161/84 97 12/19/16 07:19 19 12/19/16 04:00 98.4 86 17 158/72 95 12/19/16 03:23 20 12/19/16 01:45 19 12/19/16 00:00 98.0 82 17 150/76 96 I/O 12/18/16 12/18/16 12/18/16 12/19/16 12/19/16 12/19/16 07:00 15:00 23:00 07:00 15:00 23:00 Intake Total 240 ml 1194 ml 240 ml 240 ml 480 ml 240 ml Output Total 200 ml 1903 ml 502 ml 2760 ml Balance 40 ml -709 ml -262 ml 240 ml -2280 ml 240 ml Intake Oral 240 ml 480 ml 240 ml 240 ml 480 ml 240 ml IV Total 714 ml Output Urine Total 200 ml 1900 ml 500 ml 2760 ml Emesis 3 ml 2 ml # Voids 1 # Bowel Movements 0 1 Laboratory Laboratory Tests Test 12/19/16 10:32 Sodium Level 138 Potassium Level 4.0 Chloride Level 104 Carbon Dioxide Level 19.2 Anion Gap 15 Blood Urea Nitrogen 27 Creatinine 2.40 Estimat Glomerular Filtration 24 Rate Random Glucose 92 Calcium Level 8.9 Total Bilirubin 0.3 Aspartate Amino Transf 12 (AST/SGOT) Alanine Aminotransferase 26 (ALT/SGPT) Alkaline Phosphatase 158 Total Protein 7.6 Albumin 2.4 Lipase 862 Imaging Last Impressions Renal Ultrasound 12/17/16 0000 Signed Impressions: Service Date/Time: December 11:26 - CONCLUSION: 1. Echogenic kidneys which can be seen with medical renal disease. 2. Bilateral renal cysts. 3. Echogenic splenic lesion likely benign and may be related to hemangioma. 4. Hypoechoic lesion on the right mid kidney may be related to a complex cyst. Followup sonogram in 6 months recommended for stability. Yunier Santana MD Chest X-Ray 12/14/1610 Signed Impressions: Service Date/Time: Wednesday, December 14, 2016 09:23 - CONCLUSION: Thickened horizontal area of atelectasis in the right lung base. Sanjay Rodriguez MD Abdomen/Pelvis CT 12/14/1607 Signed Impressions: Service Date/Time: Wednesday, December 14, 2016 07:53 - CONCLUSION: 1. Patent biliary stent. Head of pancreas remains prominent with minimal peripancreatic induration, slightly increased in the interval. 2. Gastrostomy tube has been removed. 3. Moderate bibasilar parenchymal changes, stable in the interval. Jamie Tabor MD FACR Physical Exam HEENT: Normocephalic; atraumatic; no jaundice. CHEST: Chest is clear to auscultation and percussion. CARDIAC: RRR. ABDOMEN: Soft, nondistended, nontender at this point; no hepatosplenomegaly; bowel sounds are present in all four quadrants. EXTREMITIES: No clubbing, cyanosis, or edema. SKIN: Normal; no rash; no jaundice. DAIRY SCIENTIST: No focal deficits; alert and oriented times three. Assessment and Plan Plan ASSESSMENT: - Recurrent pancreatitis. Pt with hx of idiopathic recurrent pancreatitis, s/p extensive workup for her recurrent pancreatitis with MRCP, ERCP with sphincterotomy for suspected sphincter dysfunction vs. microlithiasis, Ig4 level, EUS, Triglycerides, and tertiary evaluation. She had a prolonged hospitalization in of last year for her pancreatitis and was evaluated with ERCP with stent placement (11/22/15), exchange on (12/11/15) for suspected biliary sepsis and G/J tube placement. She then had EGD with biopsy, GJ tube repositioning, ERCP with stent removal , biliary dilation with CRE balloon, balloon extraction, and wall stent, EUS ()------> unremarkable EUS of the pancrease, a stent was noted in the CBD, but otherwise was normla, prior sphincterotomy but otherwise normal, distal cbd stricture, smooth benign, this was dilated with CRE balloon 10mm post dil still significant narrowing and as such a full cover 10 bel[place]ian 6 cm wall stent was placed, positioning satisfactory, prior to stent placement a 15 mm balloon was used to clear the bile duct and no stones were noted, intrahepatic biliary tree normal, not dilated, normal esophagus, hiatal hernia, large antral ulcer, clean based, this was biopsied. Pathology of antral ulcer with predominantly necroinflammatory exudate consistent with ulceration, with rare detached fragments of benign gastric mucosa. She was last seen in our office in April of 2016, at which time she was doing very well and her ursodiol, reglan, and g/j tube was discontinued. CT scan abdomen and pelvis without contrast (12/14/16)----> patent biliary stent. Head of pancreas remains promient with minimal peripancreatic induration slightly increased in the interval, gastrostomy tube has been removed, moderate bibasilar parenchymal changes, stable in the interval. LFT unremarkable other than elevated alk. phosp 188. S/P Cholecystectomy. S /P EGD (12/16/16)---> small hiatal hernia, antral nodule. Pathology reactive/ chemical gastropathy. Lipase improving. Pain is much improved, tolerating low fat diet. Afebrile over night. okay to d/c home from GI standpoint. - Leukocytosis/Fever. 10.0. Low grade fevers - WAYNE. Creat. 2.51. IVF. Renal US pending. - Anemia. 10.6/31.2. Did have gastric ulcer on last endoscopy in january of 2016. No obvious GI bleeding. Prior to that she had EGD/Colonoscopy (10/04/15) and this revealed an ulcer at the GE junction, thick gastric fold at pre-pyloric area, mild gastritis, duodenal inflammation in the bulb and second portion of the duodenum, small polyp in the ascending colon, and moderate internal hemorrhoids. Pathology revealed gastric antral mucosal biopsies with mild chronic gastritis exhibiting histopathologic features consistent with chemical gastropathy as may be seen with bile reflux, nonsteroidal anti-inflammatory drugs or other drug induced disease negative for intestinal metaplasia and dysplasia, gricelda stain negative for helicobacter, gastroesophageal mucosal biopsy with inflammatory changes consistent with reflux negative for intestinal metaplasia and dysplasia, colonic mucosa with adenomatous polyp. Rpt. EGD as above PLAN: -Patient continues to have low-grade pancreatitis that appears to be resolving - Low fat diet - PPI - Follow-up advanced GI in 2 weeks - Consider EUS as outpatient -Patient may have had anxiety attack this morning heart state this point we will continue to monitor clinically and with blood work Gregg Ortega MD Dec 19, 2016 20:42
[2016-12-19] MEDS: METOCLOPRAMIDE HCL 10 MG/2 ML VIAL IV PRN (21:34)
[2016-12-19] MEDS ORDERED: ONDANSETRON INJ 8 MG in DEXTROSE 5% IN WATER INJ 50 ML IV PRN ×2 (22:00)
[2016-12-20] VITALS (8 sets, daily range): BP systolic 131–161; BP diastolic 66–91; PULSE 81–94; RESP 16–22; TEMP 96.2–98.8; O2SAT 94–100
[2016-12-20] MEDS: HYDROmorphone HCL PF 1 MG/ML VIAL IV PUSH PRN ×4 (04:17→23:52)
[2016-12-20 08:08] LABS: AUTOMATED NEUTROPHIL # 25.6 TH/MM3 (1.8-7.7); BASOPHIL # 0.1 TH/MM3 (0-0.2); BASOPHIL % 0.2 % (0.0-2.0); HEMATOCRIT 36.1 % (35.0-46.0); HEMO FLAGS DIFF FINAL; LYMPH % 2.2 % (9.0-44.0); LYMPHOCYTE # 0.6 TH/MM3 (1.0-4.8); MEAN CELL VOLUME 84.5 FL (80.0-100.0); MEAN CORPUSCULAR HEMOGLOBIN 27.4 PG (27.0-34.0); MEAN CORPUSCULAR HGB CONC 32.5 % (32.0-36.0); MONO % 3.3 % (0.0-8.0); NEUT % 94.3 % (16.0-70.0); PLATELET COUNT 440 TH/MM3 (150-450); RED BLOOD COUNT 4.27 MIL/MM3 (4.00-5.30); RED CELL DISTRIBUTION WIDTH 13.7 % (11.6-17.2); WHITE BLOOD COUNT 27.2 TH/MM3 (4.0-11.0)
[2016-12-20] MEDS: SUCRALFATE 1 GM TAB PO SCH ×3 (08:19→17:15)
[2016-12-20] MEDS: SODIUM CHLORIDE 0.9% FLUSH 5 ML FLUSH FLUSH SCH ×2 (08:20→21:08)
[2016-12-20] MEDS: PANTOPRAZOLE SOD 40 MG DELAYED RELEASE TAB PO SCH ×2 (08:20→21:08)
[2016-12-20] MEDS: METOPROLOL TARTRATE 25 MG TAB PO SCH ×2 (08:20→21:08)
[2016-12-20] MEDS: DILTIAZEM-CD 120 MG CAP ER PO SCH (08:20)
[2016-12-20] MEDS: LIPASE/PROTEASE/AMYLASE (12,000/38,000/60,000) CAP PO SCH ×3 (08:27→17:15)
[2016-12-20 08:37] LABS: ALKALINE PHOSPHATASE 151 U/L (45-117); TOTAL BILIRUBIN ADULT 0.5 MG/DL (0.2-1.0)
[2016-12-20 08:41] LABS: ALT (GPT) 26 U/L (10-53); ANION GAP 17 MEQ/L (5-15); BICARBONATE 18.5 MEQ/L (21.0-32.0); BLOOD UREA NITROGEN 28 MG/DL (7-18); CHLORIDE 102 MEQ/L (98-107); GLOMERULAR FILTRATION RATE 26 ML/MIN (>89); SODIUM (NA) 137 MEQ/L (136-145)
[2016-12-20 08:44] LABS: AST (GOT) 14 U/L (15-37); MAGNESIUM 2.2 MG/DL (1.5-2.5); POTASSIUM 4.5 MEQ/L (3.5-5.1)
--- NOTE | 2016-12-20 15:45 | HHI.PR ---
Subjective Remarks Nursing reports that pt is more comfortable today. Pt still c/o abdominal pain, but sleeping most of the day. Pt has only required narcotics once. Objective Vitals Vital Signs Date Time Temp Pulse Resp B/P Pulse Ox O2 Delivery O2 Flow Rate FiO2 12/20/16 13:22 96 21 12/20/16 12:00 98.1 92 18 138/81 100 12/20/16 08:00 98.2 94 20 154/78 98 12/20/16 05:02 20 12/20/16 04:00 96.9 89 16 154/91 98 12/20/16 01:29 19 12/20/16 00:00 96.2 81 18 161/89 97 12/19/16 21:37 19 12/19/16 20:00 98.8 98 17 168/82 96 12/19/16 16:00 97.8 90 20 154/88 98 12/19/16 15:48 93 148/80 12/19/16 12/19/16 12/20/16 15:00 23:00 07:00 Intake Total 480 ml 360 ml Output Total 2760 ml 300 ml Balance -2280 ml 360 ml -300 ml Intake Oral 480 ml 360 ml Output Urine Total 2760 ml 300 ml # Voids 2 Result Diagram: 12/20/16 0625 12/20/16 0625 Imaging Last Impressions Renal Ultrasound 12/17/16 0000 Signed Impressions: Service Date/Time: December 11:26 - CONCLUSION: 1. Echogenic kidneys which can be seen with medical renal disease. 2. Bilateral renal cysts. 3. Echogenic splenic lesion likely benign and may be related to hemangioma. 4. Hypoechoic lesion on the right mid kidney may be related to a complex cyst. Followup sonogram in 6 months recommended for stability. Yunier Santana MD Chest X-Ray 12/14/16 0910 Signed Impressions: Service Date/Time: Wednesday, December 14, 2016 09:23 - CONCLUSION: Thickened horizontal area of atelectasis in the right lung base. Sanjay Rodriguez MD Abdomen/Pelvis CT 12/14/16 0707 Signed Impressions: Service Date/Time: Wednesday, December 14, 2016 07:53 - CONCLUSION: 1. Patent biliary stent. Head of pancreas remains prominent with minimal peripancreatic induration, slightly increased in the interval. 2. Gastrostomy tube has been removed. 3. Moderate bibasilar parenchymal changes, stable in the interval. Jamie Tabor MD FACR Objective Remarks General: NAD, AAOx3 Chest: CTA bilaterally Cardiac: Regular Abd: +BS, soft nondistended, mild tenderness in upper abdomen Ext: No edema A/P Problem List: (1) Chronic recurrent pancreatitis Status: Acute Plan: - comgmt with GI - pt with continued abdominal pain and nausea - poor PO intake - EGD (12/16/16) with Dr. Ortega - small hiatal hernia - antral nodule --> Bx pending - - pt c/o increased pain yesterday (12/19/16), but more comfortable today - pt's WBC has increased which frequently occurs with Ms. Larsen during her attacks of pancreatitis - CBC 10.0 (12/18/16), 27.2 (12/20/16) - Lipase 862 (12/18/16), 1258 (12/20/16) - continue NPO status - IVFs - repeat BMP, CBC, lipase in AM - ativan prn agitation (2) Acute on chronic kidney disease, stage 3 Status: Chronic Plan: - some improvement from admission, but NOT yet at baseline - continue IVFs - Appreciate Nephrology Consult, recommend continue current management plan and followup outpt - Renal US (12/17/16) --> Echogenic kidneys which can be seen with medical renal disease. Bilateral renal cysts. Echogenic splenic lesion likely benign and may be related to hemangioma. Hypoechoic lesion on the right mid kidney may be related to a complex cyst. Followup sonogram in 6 months recommended for stability. - repeat BMP in AM (3) HTN (hypertension) Status: Chronic Plan: - metoprolol, cardizem CD (4) Anxiety Status: Chronic Plan: - trial of ativan Problem Qualifiers (1) HTN (hypertension): Qualified Code: I10 - Essential hypertension Alexander Eddy DO Dec 20, 2016 15:45
[2016-12-20] MEDS: 1/2 NS + KCL 20 MEQ INJ 1,000 ML IV SCH (15:54)
--- NOTE | 2016-12-20 19:53 | HHI.GIFU ---
Subjective Remarks Feeling much better today but complains of worsening pain when she eats and as such has remained nothing by mouth Objective Vitals I&O Vital Signs Date Time Temp Pulse Resp B/P Pulse Ox O2 Delivery O2 Flow Rate FiO2 12/20/16 17:48 94 21 12/20/16 16:00 98.6 88 22 131/66 94 12/20/16 13:22 96 21 12/20/16 12:00 98.1 92 18 138/81 100 12/20/16 08:00 98.2 94 20 154/78 98 12/20/16 05:02 20 12/20/16 04:00 96.9 89 16 154/91 98 12/20/16 01:29 19 12/20/16 00:00 96.2 81 18 161/89 97 12/19/16 21:37 19 12/19/16 20:00 98.8 98 17 168/82 96 I/O 12/19/16 12/19/16 12/19/16 12/20/16 12/20/16 12/20/16 07:00 15:00 23:00 07:00 15:00 23:00 Intake Total 240 ml 480 ml 360 ml 0 ml 0 ml Output Total 2760 ml 300 ml 350 ml 600 ml Balance 240 ml -2280 ml 360 ml -300 ml -350 ml -600 ml Intake Oral 240 ml 480 ml 360 ml 0 ml 0 ml Output Urine Total 2760 ml 300 ml 350 ml 600 ml # Voids 2 2 Laboratory Laboratory Tests Test 12/20/16 06:25 White Blood Count 27.2 Red Blood Count 4.27 Hemoglobin 11.7 Hematocrit 36.1 Mean Corpuscular Volume 84.5 Mean Corpuscular Hemoglobin 27.4 Mean Corpuscular Hemoglobin 32.5 Concent Red Cell Distribution Width 13.7 Platelet Count 440 Mean Platelet Volume 8.2 Neutrophils (%) (Auto) 94.3 Lymphocytes (%) (Auto) 2.2 Monocytes (%) (Auto) 3.3 Eosinophils (%) (Auto) 0.0 Basophils (%) (Auto) 0.2 Neutrophils # (Auto) 25.6 Lymphocytes # (Auto) 0.6 Monocytes # (Auto) 0.9 Eosinophils # (Auto) 0.0 Basophils # (Auto) 0.1 CBC Comment DIFF FINAL Differential Comment Sodium Level 137 Potassium Level 4.5 Chloride Level 102 Carbon Dioxide Level 18.5 Anion Gap 17 Blood Urea Nitrogen 28 Creatinine 2.21 Estimat Glomerular Filtration 26 Rate Random Glucose 107 Calcium Level 9.2 Magnesium Level 2.2 Total Bilirubin 0.5 Aspartate Amino Transf 14 (AST/SGOT) Alanine Aminotransferase 26 (ALT/SGPT) Alkaline Phosphatase 151 Total Protein 7.8 Albumin 2.5 Lipase 1258 Physical Exam HEENT: Normocephalic; atraumatic; no jaundice. CHEST: Chest is clear to auscultation and percussion. CARDIAC: RRR. ABDOMEN: Soft, nondistended, nontender at this point; no hepatosplenomegaly; bowel sounds are present in all four quadrants. EXTREMITIES: No clubbing, cyanosis, or edema. SKIN: Normal; no rash; no jaundice. RESIDENT MEDICAL OFFICER: No focal deficits; alert and oriented times three. Assessment and Plan Plan ASSESSMENT: - Recurrent pancreatitis. Pt with hx of idiopathic recurrent pancreatitis, s/p extensive workup for her recurrent pancreatitis with MRCP, ERCP with sphincterotomy for suspected sphincter dysfunction vs. microlithiasis, Ig4 level, EUS, Triglycerides, and tertiary evaluation. She had a prolonged hospitalization in November/December of last year for her pancreatitis and was evaluated with ERCP with stent placement (11/22/15), exchange on (12/11/15) for suspected biliary sepsis and G/J tube placement. She then had EGD with biopsy, GJ tube repositioning, ERCP with stent removal , biliary dilation with CRE balloon, balloon extraction, and wall stent, EUS ()------> unremarkable EUS of the pancrease, a stent was noted in the CBD, but otherwise was normla, prior sphincterotomy but otherwise normal, distal cbd stricture, smooth benign, this was dilated with CRE balloon 10mm post dil still significant narrowing and as such a full cover 10 swedish 6 cm wall stent was placed, positioning satisfactory, prior to stent placement a 15 mm balloon was used to clear the bile duct and no stones were noted, intrahepatic biliary tree normal, not dilated, normal esophagus, hiatal hernia, large antral ulcer, clean based, this was biopsied. Pathology of antral ulcer with predominantly necroinflammatory exudate consistent with ulceration, with rare detached fragments of benign gastric mucosa. She was last seen in our office in April of 2016, at which time she was doing very well and her ursodiol, reglan, and g/j tube was discontinued. CT scan abdomen and pelvis without contrast (12/14/16)----> patent biliary stent. Head of pancreas remains promient with minimal peripancreatic induration slightly increased in the interval, gastrostomy tube has been removed, moderate bibasilar parenchymal changes, stable in the interval. LFT unremarkable other than elevated alk. phosp 188. S/P Cholecystectomy. S /P EGD (12/16/16)---> small hiatal hernia, antral nodule. Pathology reactive/ chemical gastropathy. Lipase improving. Pain is much improved, tolerating low fat diet. Afebrile over night. okay to d/c home from GI standpoint. - Leukocytosis/Fever. 10.0. Low grade fevers - WAYNE. Creat. 2.51. IVF. Renal US pending. - Anemia. 10.6/31.2. Did have gastric ulcer on last endoscopy in january of 2016. No obvious GI bleeding. Prior to that she had EGD/Colonoscopy (10/04/15) and this revealed an ulcer at the GE junction, thick gastric fold at pre-pyloric area, mild gastritis, duodenal inflammation in the bulb and second portion of the duodenum, small polyp in the ascending colon, and moderate internal hemorrhoids. Pathology revealed gastric antral mucosal biopsies with mild chronic gastritis exhibiting histopathologic features consistent with chemical gastropathy as may be seen with bile reflux, nonsteroidal anti-inflammatory drugs or other drug induced disease negative for intestinal metaplasia and dysplasia, gricelda stain negative for helicobacter, gastroesophageal mucosal biopsy with inflammatory changes consistent with reflux negative for intestinal metaplasia and dysplasia, colonic mucosa with adenomatous polyp. Rpt. EGD as above Leukocytosis probably secondary to pancreatitis PLAN: -Patient continues to have low-grade pancreatitis that appears to be resolving -Patient unable to tolerate oral intake with worsening pain patient in the past has required a GJ tube again I offered the patient to have IR place a GJ tube she will discuss this with her daughter and will let us know whether she wants to go this route - PPI - Follow-up advanced GI in 2 weeks - Consider EUS as outpatient Gregg Ortega MD Dec 20, 2016 19:53
[2016-12-20] MEDS: METOCLOPRAMIDE HCL 10 MG/2 ML VIAL IV PRN (21:03)
[2016-12-20] MEDS: SODIUM CHLORIDE 0.9% FLUSH 5 ML FLUSH FLUSH PRN (23:53)
[2016-12-21] VITALS: BP 136/65; PULSE 81; RESP 16; TEMP 99; O2SAT 96
[2016-12-21] MEDS: 1/2 NS + KCL 20 MEQ INJ 1,000 ML IV SCH ×2 (03:55→05:08)
[2016-12-21 04:00] VITALS: BP 122/67; PULSE 89; RESP 18; TEMP 97.4; O2SAT 100
[2016-12-21] MEDS: HYDROmorphone HCL PF 1 MG/ML VIAL IV PUSH PRN ×3 (05:51→19:13)
[2016-12-21 07:16] VITALS: BP 122/69; PULSE 92; RESP 20; TEMP 97.6; O2SAT 95
[2016-12-21] MEDS: PANTOPRAZOLE SOD 40 MG DELAYED RELEASE TAB PO SCH ×2 (07:46→21:41)
[2016-12-21] MEDS: SUCRALFATE 1 GM TAB PO SCH ×3 (07:46→17:40)
[2016-12-21] MEDS: METOPROLOL TARTRATE 25 MG TAB PO SCH ×2 (07:46→21:40)
[2016-12-21] MEDS: SODIUM CHLORIDE 0.9% FLUSH 5 ML FLUSH FLUSH SCH ×2 (07:46→19:13)
[2016-12-21] MEDS: DILTIAZEM-CD 120 MG CAP ER PO SCH (07:46)
[2016-12-21 09:19] LABS: BASOPHIL # 0.1 TH/MM3 (0-0.2); BASOPHIL % 0.3 % (0.0-2.0); EOSINOPHIL # 0.1 TH/MM3 (0-0.4); EOSINOPHIL % 0.8 % (0.0-4.0); HEMATOCRIT 32.5 % (35.0-46.0); HEMO FLAGS DIFF FINAL; LYMPH % 8.6 % (9.0-44.0); LYMPHOCYTE # 1.6 TH/MM3 (1.0-4.8); MEAN CORPUSCULAR HEMOGLOBIN 27.3 PG (27.0-34.0); MEAN CORPUSCULAR HGB CONC 32.9 % (32.0-36.0); NEUT % 86.3 % (16.0-70.0); PLATELET COUNT 457 TH/MM3 (150-450); RED BLOOD COUNT 3.91 MIL/MM3 (4.00-5.30); WHITE BLOOD COUNT 18.5 TH/MM3 (4.0-11.0)
--- NOTE | 2016-12-21 09:25 | HHI.PR ---
Subjective Remarks seems comfortable. nervous about resuming diet. Objective Vitals heart reg lung cta abd mild epigastric tenderness. bs ext no edema Vital Signs Date Time Temp Pulse Resp B/P Pulse Ox O2 Delivery O2 Flow Rate FiO2 12/21/16 07:16 97.6 92 20 122/69 95 12/21/16 04:00 97.4 89 18 122/67 100 12/21/16 00:00 99.0 81 16 136/65 96 12/20/16 20:00 98.8 93 18 136/75 95 12/20/16 17:48 94 21 12/20/16 16:00 98.6 88 22 131/66 94 12/20/16 13:22 96 21 12/20/16 12:00 98.1 92 18 138/81 100 12/20/16 12/20/16 12/21/16 15:00 23:00 07:00 Intake Total 0 ml 1080 ml 710 ml Output Total 350 ml 850 ml 300 ml Balance -350 ml 230 ml 410 ml Intake Oral 0 ml 480 ml IV Total 600 ml 710 ml Output Urine Total 350 ml 850 ml 300 ml # Voids 2 Result Diagram: 12/21/16 0731 12/20/16 0625 Imaging Last Impressions Renal Ultrasound 12/17/16 0000 Signed Impressions: Service Date/Time: December 11:26 - CONCLUSION: 1. Echogenic kidneys which can be seen with medical renal disease. 2. Bilateral renal cysts. 3. Echogenic splenic lesion likely benign and may be related to hemangioma. 4. Hypoechoic lesion on the right mid kidney may be related to a complex cyst. Followup sonogram in 6 months recommended for stability. Yunier Santana MD Chest X-Ray 12/14/16 0910 Signed Impressions: Service Date/Time: Wednesday, December 14, 2016 09:23 - CONCLUSION: Thickened horizontal area of atelectasis in the right lung base. Sanjay Rodriguez MD Abdomen/Pelvis CT 12/14/16 0707 Signed Impressions: Service Date/Time: Wednesday, December 14, 2016 07:53 - CONCLUSION: 1. Patent biliary stent. Head of pancreas remains prominent with minimal peripancreatic induration, slightly increased in the interval. 2. Gastrostomy tube has been removed. 3. Moderate bibasilar parenchymal changes, stable in the interval. Jamie Tabor MD FACR A/P Problem List: (1) Chronic recurrent pancreatitis Status: Acute Plan: - Presented with her typical pancreatitis sx's - poor PO intake - EGD (12/16/16) with Dr. Ortega - small hiatal hernia - antral nodule --> Bx pending - pt's WBC has increased which frequently occurs with Ms. Larsen during her attacks of pancreatitis - Lipase 862 (12/18/16), 1258 (12/20/16) - continue NPO status - IVFs - ativan prn agitation ambulate. advance diet slowly. GI following. (2) HTN (hypertension) Status: Chronic Plan: - metoprolol, cardizem CD (3) Anxiety Status: Chronic Plan: - trial of ativan (4) CKD (chronic kidney disease) stage 4, GFR 15-29 ml/min Status: Chronic Plan: stable per her mend worker Problem Qualifiers (1) HTN (hypertension): Qualified Code: I10 - Essential hypertension Bryan Quezada MD Dec 21, 2016 09:25
[2016-12-21 10:04] LABS: BICARBONATE 22.1 MEQ/L (21.0-32.0); MAGNESIUM 2.3 MG/DL (1.5-2.5); POTASSIUM 3.8 MEQ/L (3.5-5.1)
[2016-12-21] MEDS: LIPASE/PROTEASE/AMYLASE (12,000/38,000/60,000) CAP PO SCH ×3 (10:27→17:40)
[2016-12-21 11:00] VITALS: BP 133/67; PULSE 82; RESP 20; TEMP 97.3; O2SAT 100
[2016-12-21] MEDS: NS + KCL 20 MEQ INJ 1,000 ML IV SCH (13:04)
--- NOTE | 2016-12-21 13:59 | HHI.GIFU ---
Subjective Remarks Resting in bed. Requiring pain meds for abdominal pain. States she cannot eat because this aggravates her pain. D/W patient placement of G/J tube- rationale , risks, benefits. She would like to discuss this more with her daughter prior to making a decision. (Edwina Dodge) Objective Vitals I&O Vital Signs Date Time Temp Pulse Resp B/P Pulse Ox O2 Delivery O2 Flow Rate FiO2 12/21/16 11:00 97.3 82 20 133/67 100 12/21/16 07:16 97.6 92 20 122/69 95 12/21/16 04:00 97.4 89 18 122/67 100 12/21/16 00:00 99.0 81 16 136/65 96 12/20/16 20:00 98.8 93 18 136/75 95 12/20/16 17:48 94 21 12/20/16 16:00 98.6 88 22 131/66 94 I/O 12/20/16 12/20/16 12/20/16 12/21/16 12/21/16 12/21/16 07:00 15:00 23:00 07:00 15:00 23:00 Intake Total 0 ml 1080 ml 710 ml Output Total 300 ml 350 ml 850 ml 300 ml Balance -300 ml -350 ml 230 ml 410 ml Intake Oral 0 ml 480 ml IV Total 600 ml 710 ml Output Urine Total 300 ml 350 ml 850 ml 300 ml # Voids 2 Laboratory Laboratory Tests Test 12/21/16 07:31 White Blood Count 18.5 Red Blood Count 3.91 Hemoglobin 10.7 Hematocrit 32.5 Mean Corpuscular Volume 83.0 Mean Corpuscular Hemoglobin 27.3 Mean Corpuscular Hemoglobin 32.9 Concent Red Cell Distribution Width 14.0 Platelet Count 457 Mean Platelet Volume 7.8 Neutrophils (%) (Auto) 86.3 Lymphocytes (%) (Auto) 8.6 Monocytes (%) (Auto) 4.0 Eosinophils (%) (Auto) 0.8 Basophils (%) (Auto) 0.3 Neutrophils # (Auto) 16.0 Lymphocytes # (Auto) 1.6 Monocytes # (Auto) 0.7 Eosinophils # (Auto) 0.1 Basophils # (Auto) 0.1 CBC Comment DIFF FINAL Differential Comment Sodium Level 137 Potassium Level 3.8 Chloride Level 102 Carbon Dioxide Level 22.1 Anion Gap 13 Blood Urea Nitrogen 34 Creatinine 2.57 Estimat Glomerular Filtration 22 Rate Random Glucose 71 Calcium Level 8.9 Magnesium Level 2.3 Lipase 959 Imaging Last Impressions Renal Ultrasound 12/17/16 0000 Signed Impressions: Service Date/Time: December 11:26 - CONCLUSION: 1. Echogenic kidneys which can be seen with medical renal disease. 2. Bilateral renal cysts. 3. Echogenic splenic lesion likely benign and may be related to hemangioma. 4. Hypoechoic lesion on the right mid kidney may be related to a complex cyst. Followup sonogram in 6 months recommended for stability. Yunier Santana MD Chest X-Ray 12/14/16 0910 Signed Impressions: Service Date/Time: Wednesday, December 14, 2016 09:23 - CONCLUSION: Thickened horizontal area of atelectasis in the right lung base. Sanjay Rodriguez MD Abdomen/Pelvis CT 12/14/16 0707 Signed Impressions: Service Date/Time: Wednesday, December 14, 2016 07:53 - CONCLUSION: 1. Patent biliary stent. Head of pancreas remains prominent with minimal peripancreatic induration, slightly increased in the interval. 2. Gastrostomy tube has been removed. 3. Moderate bibasilar parenchymal changes, stable in the interval. Jamie Tabor MD FACR Physical Exam HEENT: Normocephalic; atraumatic; no jaundice. CHEST: CTA CARDIAC: RRR. ABDOMEN: Soft, nondistended, mild epigastric tenderness; no hepatosplenomegaly ; bowel sounds are present in all four quadrants. EXTREMITIES: No clubbing, cyanosis, or edema. SKIN: Normal; no rash; no jaundice. RADIO DISPATCHER: No focal deficits; alert and oriented times three. (Edwina Dodge [facility]) Assessment and Plan Plan ASSESSMENT: - Recurrent pancreatitis. Pt with hx of idiopathic recurrent pancreatitis, s/p extensive workup for her recurrent pancreatitis with MRCP, ERCP with sphincterotomy for suspected sphincter dysfunction vs. microlithiasis, Ig4 level, EUS, Triglycerides, and tertiary evaluation. She had a prolonged hospitalization in of last year for her pancreatitis and was evaluated with ERCP with stent placement (11/22/15), exchange on (12/11/15) for suspected biliary sepsis and G/J tube placement. She then had EGD with biopsy, GJ tube repositioning, ERCP with stent removal , biliary dilation with CRE balloon, balloon extraction, and wall stent, EUS ()------> unremarkable EUS of the pancrease, a stent was noted in the CBD, but otherwise was normla, prior sphincterotomy but otherwise normal, distal cbd stricture, smooth benign, this was dilated with CRE balloon 10mm post dil still significant narrowing and as such a full cover 10 [place] 6 cm wall stent was placed, positioning satisfactory, prior to stent placement a 15 mm balloon was used to clear the bile duct and no stones were noted, intrahepatic biliary tree normal, not dilated, normal esophagus, hiatal hernia, large antral ulcer, clean based, this was biopsied. Pathology of antral ulcer with predominantly necroinflammatory exudate consistent with ulceration, with rare detached fragments of benign gastric mucosa. She was last seen in our office in April of 2016, at which time she was doing very well and her ursodiol, reglan, and g/j tube was discontinued. CT scan abdomen and pelvis without contrast (12/14/16)----> patent biliary stent. Head of pancreas remains promient with minimal peripancreatic induration slightly increased in the interval, gastrostomy tube has been removed, moderate bibasilar parenchymal changes, stable in the interval. LFT unremarkable other than elevated alk. phosp 188. S/P Cholecystectomy. S /P EGD (12/16/16)---> small hiatal hernia, antral nodule. Pathology reactive/ chemical gastropathy. Lipase improving. Not tolerating diet now, has increased pain with po intake. D/W patient placement of G/J tube- rationale, risks, benefits. She would like to discuss this more with her daughter prior to making a decision. - Leukocytosis/Fever. 10.0. Low grade fevers - WAY[facility]. Creat. 2.51. IVF. Renal US pending. - Anemia. 10.7/32.5 Did have gastric ulcer on last endoscopy in january of 2016. No obvious GI bleeding. Prior to that she had EGD/Colonoscopy (10/04/15) and this revealed an ulcer at the GE junction, thick gastric fold at pre-pyloric area, mild gastritis, duodenal inflammation in the bulb and second portion of the duodenum, small polyp in the ascending colon, and moderate internal hemorrhoids. Pathology revealed gastric antral mucosal biopsies with mild chronic gastritis exhibiting histopathologic features consistent with chemical gastropathy as may be seen with bile reflux, nonsteroidal anti-inflammatory drugs or other drug induced disease negative for intestinal metaplasia and dysplasia, gricelda stain negative for helicobacter, gastroesophageal mucosal biopsy with inflammatory changes consistent with reflux negative for intestinal metaplasia and dysplasia, colonic mucosa with adenomatous polyp. Rpt. EGD as above Leukocytosis probably secondary to pancreatitis. WBC 18.5 PLAN: - Clear liquids from GI standpoint- will hold until line placed - PPI - D/W patient G/J tube placement- would like to d/w daughter before making a decision - Consider EUS as outpatient - Supportive care - Further recommendations to follow based on results of above - Pt seen and examined by Dr. Bravo and myself and this note is written on his behalf (Edwina Dodge) Physician Comments Seen and examined with Ms. Echo DAILY, doing well with less pain. PO intake remains marginal (Margy Bravo MD) Edwina Dodge Dec 21, 2016 13:59 Margy Bravo MD Dec 22, 2016 17:01
[2016-12-21 15:50] VITALS: BP 148/66; PULSE 86; RESP 20; TEMP 98.3; O2SAT 94
--- NOTE | 2016-12-21 16:35 | HHI.NPPN ---
Subjective General Problems: Anemia Renal Failure: Chronic, Acute, Stage IV History of Present Illness 80-year-old the female with history of hypertension,chronic recurrent pancreatitis, CKD stage IV . She is now admitted with recurrent abdominal pain, nausea and vomiting. Additional Remarks Patient is alert, not able top tolerate orally, has nausea. Review of Systems Gastrointestinal Gastrointestinal: Abdominal Pain, Nausea & Vomiting Objective Data Data 12/20/16 12/21/16 19:00 07:00 Intake Total 0 ml 1790 ml Output Total 950 ml 550 ml Balance -950 ml 1240 ml Intake Oral 0 ml 480 ml IV Total 1310 ml Output Urine Total 950 ml 550 ml # Voids 2 Vital Signs Date Time Temp Pulse Resp B/P Pulse Ox O2 Delivery O2 Flow Rate FiO2 12/21/16 15:50 98.3 86 20 148/66 94 12/21/16 11:00 97.3 82 20 133/67 100 12/21/16 07:16 97.6 92 20 122/69 95 12/21/16 04:00 97.4 89 18 122/67 100 12/21/16 00:00 99.0 81 16 136/65 96 12/20/16 20:00 98.8 93 18 136/75 95 12/20/16 17:48 94 21 -: 12/21/16 0731 12/21/16 0731 Physical Exam General Appearance: No Acute Distress, Comfortable Eyes Eye Exam: Pupils Equal Neck Neck Exam: Neck Supple Pulmonary Resp Exam: Breath Sounds Equal, No Distress, Rhonchi, Decreased Bases Gastrointestinal/Abdomen GI Exam: Soft, Distended GI Remarks Mild epi. tenderness. Extremeties Extremities Exam: Trace Edema Neurologic Neuro Exam: Alert, Awake, Oriented Psychiatric Psych Exam: Appropriate Responses Assessment/Plan Problem List: (1) CKD (chronic kidney disease) stage 4, GFR 15-29 ml/min Plan: Patient has stage 4 chronic kidney disease. She has been following with Dr. Melara. Her Creatinine seems to be close to her baseline. Has been non oliguric. (2) Chronic recurrent pancreatitis Plan: Patient is followed by GI specialist. Rec. G/J Tube placement. (3) HTN (hypertension) Plan: Continue to monitor blood pressure Problem Qualifiers (1) HTN (hypertension): Qualified Code: I10 - Essential hypertension Aaliyah Kennedy MD Dec 21, 2016 16:34
[2016-12-21 20:00] VITALS: BP 137/72; PULSE 79; RESP 18; TEMP 98.5; O2SAT 94
[2016-12-22] VITALS: BP 132/74; PULSE 75; RESP 18; TEMP 97.6; O2SAT 96
[2016-12-22] MEDS: METOCLOPRAMIDE HCL 10 MG/2 ML VIAL IV PRN ×2 (01:38→20:11)
[2016-12-22] MEDS: HYDROmorphone HCL PF 1 MG/ML VIAL IV PUSH PRN ×4 (01:38→20:12)
[2016-12-22] MEDS: NS + KCL 20 MEQ INJ 1,000 ML IV SCH ×2 (01:39→12:31)
[2016-12-22 04:00] VITALS: BP_SYST 139; BP_SYST 142; BP_DIAS 77; BP_DIAS 85; PULSE 105; PULSE 80; RESP 17; TEMP 97.1; TEMP 97.8; O2SAT 93; O2SAT 99
[2016-12-22] MEDS: SODIUM CHLORIDE 0.9% FLUSH 5 ML FLUSH FLUSH PRN (07:46)
[2016-12-22 08:00] VITALS: BP 157/81; PULSE 93; RESP 16; TEMP 98.2; O2SAT 95
--- NOTE | 2016-12-22 08:47 | HHI.PR ---
Subjective Remarks comfortable at moment. Objective Vitals heart reg lung cta abd mild epigastric tenderness ext no edema Vital Signs Date Time Temp Pulse Resp B/P Pulse Ox O2 Delivery O2 Flow Rate FiO2 12/22/16 08:00 98.2 93 16 157/81 95 12/22/16 04:00 97.1 80 17 139/77 99 12/22/16 00:00 97.6 75 18 132/74 96 12/21/16 20:00 98.5 79 18 137/72 94 12/21/16 15:50 98.3 86 20 148/66 94 12/21/16 11:00 97.3 82 20 133/67 100 12/21/16 12/21/16 12/22/16 15:00 23:00 07:00 Intake Total 420 ml 1305 ml Output Total 350 ml 300 ml 250 ml Balance 70 ml -300 ml 1055 ml Intake Oral 0 ml IV Total 420 ml 1305 ml Output Urine Total 350 ml 300 ml 250 ml # Bowel Movements 0 1 Result Diagram: 12/21/16 0731 12/21/16 0731 Imaging Last Impressions Renal Ultrasound 12/17/16 0000 Signed Impressions: Service Date/Time: December 11:26 - CONCLUSION: 1. Echogenic kidneys which can be seen with medical renal disease. 2. Bilateral renal cysts. 3. Echogenic splenic lesion likely benign and may be related to hemangioma. 4. Hypoechoic lesion on the right mid kidney may be related to a complex cyst. Followup sonogram in 6 months recommended for stability. Yunier Santana MD Chest X-Ray 12/14/16 0910 Signed Impressions: Service Date/Time: Wednesday, December 14, 2016 09:23 - CONCLUSION: Thickened horizontal area of atelectasis in the right lung base. Sanjay Rodriguez MD Abdomen/Pelvis CT 12/14/16 0707 Signed Impressions: Service Date/Time: Wednesday, December 14, 2016 07:53 - CONCLUSION: 1. Patent biliary stent. Head of pancreas remains prominent with minimal peripancreatic induration, slightly increased in the interval. 2. Gastrostomy tube has been removed. 3. Moderate bibasilar parenchymal changes, stable in the interval. Jamie Tabor MD FACR A/P Problem List: (1) Chronic recurrent pancreatitis Status: Acute Plan: - Presented with her typical pancreatitis sx's - poor PO intake - EGD (12/16/16) with Dr. Ortega - small hiatal hernia - antral nodule --> Bx pending - pt's WBC has increased which frequently occurs with Ms. Larsen during her attacks of pancreatitis - Lipase 862 (12/18/16), 1258 (12/20/16) - continue NPO status - IVFs - ativan prn agitation ambulate. GI in discussion with pt/family about a GJ tube. will discuss with GI today. currently on npo status. (2) HTN (hypertension) Status: Chronic Plan: - metoprolol, cardizem CD (3) Anxiety Status: Chronic Plan: - trial of ativan (4) CKD (chronic kidney disease) stage 4, GFR 15-29 ml/min Status: Chronic Plan: stable per her marketing effectiveness manager Problem Qualifiers (1) HTN (hypertension): Qualified Code: I10 - Essential hypertension Bryan Quezada MD Dec 22, 2016 08:47
[2016-12-22] MEDS: SUCRALFATE 1 GM TAB PO SCH ×3 (09:00→17:00)
[2016-12-22] MEDS: SODIUM CHLORIDE 0.9% FLUSH 5 ML FLUSH FLUSH SCH ×2 (09:00→20:17)
[2016-12-22] MEDS: DILTIAZEM-CD 120 MG CAP ER PO SCH (09:09)
[2016-12-22] MEDS: PANTOPRAZOLE SOD 40 MG DELAYED RELEASE TAB PO SCH ×2 (09:09→20:16)
[2016-12-22] MEDS: METOPROLOL TARTRATE 25 MG TAB PO SCH ×2 (09:09→20:17)
[2016-12-22] MEDS: LIPASE/PROTEASE/AMYLASE (12,000/38,000/60,000) CAP PO SCH ×3 (09:14→17:43)
[2016-12-22 12:00] VITALS: BP 149/71; PULSE 83; RESP 16; TEMP 97.1; O2SAT 98
--- NOTE | 2016-12-22 12:08 | HHI.GIFU ---
Subjective Remarks Resting in bed. States pain "still comes and goes." Tolerable with pain meds. States she wants me to call her daughter Caitlyn at [phone] to d/w G/J tube placement. (Edwina Dodge) Objective Vitals I&O Vital Signs Date Time Temp Pulse Resp B/P Pulse Ox O2 Delivery O2 Flow Rate FiO2 12/22/16 08:00 98.2 93 16 157/81 95 12/22/16 04:00 97.1 80 17 139/77 99 12/22/16 00:00 97.6 75 18 132/74 96 12/21/16 20:00 98.5 79 18 137/72 94 12/21/16 15:50 98.3 86 20 148/66 94 I/O 12/21/16 12/21/16 12/21/16 12/22/16 12/22/16 12/22/16 07:00 15:00 23:00 07:00 15:00 23:00 Intake Total 710 ml 420 ml 1305 ml Output Total 300 ml 350 ml 300 ml 250 ml 300 ml Balance 410 ml 70 ml -300 ml 1055 ml -300 ml Intake Oral 0 ml IV Total 710 ml 420 ml 1305 ml Output Urine Total 300 ml 350 ml 300 ml 250 ml 300 ml # Bowel Movements 0 1 Imaging Last Impressions Renal Ultrasound 12/17/16 0000 Signed Impressions: Service Date/Time: December 11:26 - CONCLUSION: 1. Echogenic kidneys which can be seen with medical renal disease. 2. Bilateral renal cysts. 3. Echogenic splenic lesion likely benign and may be related to hemangioma. 4. Hypoechoic lesion on the right mid kidney may be related to a complex cyst. Followup sonogram in 6 months recommended for stability. Yunier Santana MD Chest X-Ray 12/14/16 0910 Signed Impressions: Service Date/Time: Wednesday, December 14, 2016 09:23 - CONCLUSION: Thickened horizontal area of atelectasis in the right lung base. Sanjay Rodriguez MD Abdomen/Pelvis CT 12/14/16 0707 Signed Impressions: Service Date/Time: Wednesday, December 14, 2016 07:53 - CONCLUSION: 1. Patent biliary stent. Head of pancreas remains prominent with minimal peripancreatic induration, slightly increased in the interval. 2. Gastrostomy tube has been removed. 3. Moderate bibasilar parenchymal changes, stable in the interval. Jamie Tabor MD FACR Physical Exam HEENT: Normocephalic; atraumatic; no jaundice. CHEST: CTA CARDIAC: RRR. ABDOMEN: Soft, nondistended, mild epigastric tenderness; no hepatosplenomegaly ; bowel sounds are present in all four quadrants. EXTREMITIES: No clubbing, cyanosis, or edema. SKIN: Normal; no rash; no jaundice. BULK LOADER: No focal deficits; alert and oriented times three. (DodgeEdwina Opal [facility]) Assessment and Plan Plan ASSESSMENT: - Recurrent pancreatitis. Pt with hx of idiopathic recurrent pancreatitis, s/p extensive workup for her recurrent pancreatitis with MRCP, ERCP with sphincterotomy for suspected sphincter dysfunction vs. microlithiasis, Ig4 level, EUS, Triglycerides, and tertiary evaluation. She had a prolonged hospitalization in November/December of last year for her pancreatitis and was evaluated with ERCP with stent placement (11/22/15), exchange on (12/11/15) for suspected biliary sepsis and G/J tube placement. She then had EGD with biopsy, GJ tube repositioning, ERCP with stent removal , biliary dilation with CRE balloon, balloon extraction, and wall stent, EUS ()------> unremarkable EUS of the pancrease, a stent was noted in the CBD, but otherwise was normla, prior sphincterotomy but otherwise normal, distal cbd stricture, smooth benign, this was dilated with CRE balloon 10mm post dil still significant narrowing and as such a full cover 10 [place] 6 cm wall stent was placed, positioning satisfactory, prior to stent placement a 15 mm balloon was used to clear the bile duct and no stones were noted, intrahepatic biliary tree normal, not dilated, normal esophagus, hiatal hernia, large antral ulcer, clean based, this was biopsied. Pathology of antral ulcer with predominantly necroinflammatory exudate consistent with ulceration, with rare detached fragments of benign gastric mucosa. She was last seen in our office in April of 2016, at which time she was doing very well and her ursodiol, reglan, and g/j tube was discontinued. CT scan abdomen and pelvis without contrast (12/14/16)----> patent biliary stent. Head of pancreas remains promient with minimal peripancreatic induration slightly increased in the interval, gastrostomy tube has been removed, moderate bibasilar parenchymal changes, stable in the interval. LFT unremarkable other than elevated alk. phosp. S/P Cholecystectomy. S/P EGD (12/16/16)---> small hiatal hernia, antral nodule. Pathology reactive/ chemical gastropathy. Lipase improving. Not tolerating diet now, has increased pain with po intake. D/W patient placement of G/J tube- rationale, risks, benefits. She d/w this with her daughter yesterday and requested that I call her daughter about this. Spoke to daughter Caitlyn [phone], states she really feels that her mother was given solids too quickly and that is the reason she is not tolerating po. She would like to try the clear liquids and slowly advance prior to considering G/J tube. She is hoping that she will tolerate liquids and improve enough to be discharged home by Wednesday, as she has a big surprise libertarian scheduled for that day with [place]. - Leukocytosis/Fever. 18.5. Afebrile - [facility]. Creat. 2.57. IVF. Renal US pending. - Anemia. 10.7/32.5 Did have gastric ulcer on last endoscopy in january of 2016. No obvious GI bleeding. Prior to that she had EGD/Colonoscopy (10/04/15) and this revealed an ulcer at the GE junction, thick gastric fold at pre-pyloric area, mild gastritis, duodenal inflammation in the bulb and second portion of the duodenum, small polyp in the ascending colon, and moderate internal hemorrhoids. Pathology revealed gastric antral mucosal biopsies with mild chronic gastritis exhibiting histopathologic features consistent with chemical gastropathy as may be seen with bile reflux, nonsteroidal anti-inflammatory drugs or other drug induced disease negative for intestinal metaplasia and dysplasia, gricelda stain negative for helicobacter, gastroesophageal mucosal biopsy with inflammatory changes consistent with reflux negative for intestinal metaplasia and dysplasia, colonic mucosa with adenomatous polyp. Rpt. EGD as above Leukocytosis probably secondary to pancreatitis. WBC 18.5 PLAN: - Clear liquids - PPI - D/W patient/daughter G/J tube placement- would like to hold off and attempt clear liquids - Monitor labs - Supportive care - Consider EUS as outpatient - Further recommendations to follow based on results of above - Pt seen and examined by Dr. Bravo and myself and this note is written on his behalf (Edwina Dodge) Physician Comments Seen and examined with family in the room. Tolerating liquids. Does not want a G /J again. Last one removed about a year ago. Calorie counts. will sign off. Reconsult as needed. Thank you (Margy Bravo MD) Edwina Dodge Dec 22, 2016 12:08 Margy Bravo MD Dec 22, 2016 17:27
--- NOTE | 2016-12-22 15:35 | HHI.NPPN ---
Subjective General Problems: Anemia Renal Failure: Chronic, Acute, Stage IV History of Present Illness 80-year-old the female with history of hypertension,chronic recurrent pancreatitis, CKD stage IV . She is now admitted with recurrent abdominal pain, nausea and vomiting. Additional Remarks Patient is alert, taking liquids, vomited small amount, abd. pain is better. Review of Systems Gastrointestinal Gastrointestinal: Abdominal Pain, Nausea & Vomiting Objective Data Data 12/21/16 12/22/16 19:00 07:00 Intake Total 420 ml 1305 ml Output Total 350 ml 550 ml Balance 70 ml 755 ml Intake Oral 0 ml IV Total 420 ml 1305 ml Output Urine Total 350 ml 550 ml # Bowel Movements 0 1 Vital Signs Date Time Temp Pulse Resp B/P Pulse Ox O2 Delivery O2 Flow Rate FiO2 12/22/16 12:00 97.1 83 16 149/71 98 12/22/16 08:00 98.2 93 16 157/81 95 12/22/16 04:00 97.1 80 17 139/77 99 12/22/16 00:00 97.6 75 18 132/74 96 12/21/16 20:00 98.5 79 18 137/72 94 12/21/16 15:50 98.3 86 20 148/66 94 -: 12/21/16 0731 12/21/16 0731 Physical Exam General Appearance: No Acute Distress, Comfortable Eyes Eye Exam: Pupils Equal Neck Neck Exam: Neck Supple Pulmonary Resp Exam: Breath Sounds Equal, No Distress, Rhonchi, Decreased Bases Gastrointestinal/Abdomen GI Exam: Soft, Distended GI Remarks Mild epi. tenderness. Extremeties Extremities Exam: Trace Edema Neurologic Neuro Exam: Alert, Awake, Oriented Psychiatric Psych Exam: Appropriate Responses Assessment/Plan Problem List: (1) CKD (chronic kidney disease) stage 4, GFR 15-29 ml/min Plan: Patient has stage 4 chronic kidney disease. She has been following with Dr. Melara. Her Creatinine seems to be close to her baseline. No new BMP, will get in AM. Continue IVF with Kcl. (2) Chronic recurrent pancreatitis Plan: Patient is followed by GI specialist. Rec. G/J Tube placement. (3) HTN (hypertension) Plan: Continue to monitor blood pressure Problem Qualifiers (1) HTN (hypertension): Qualified Code: I10 - Essential hypertension Aaliyah Kennedy MD Dec 22, 2016 15:35
[2016-12-22 16:00] VITALS: BP 147/72; PULSE 92; RESP 16; TEMP 97; O2SAT 97
[2016-12-22 20:00] VITALS: BP 165/73; PULSE 82; RESP 18; TEMP 98.3; O2SAT 95
[2016-12-23] VITALS: BP 165/89; PULSE 82; RESP 17; TEMP 98.2; O2SAT 96
[2016-12-23] MEDS: HYDROmorphone HCL PF 1 MG/ML VIAL IV PUSH PRN ×4 (02:21→20:58)
[2016-12-23] MEDS: NS + KCL 20 MEQ INJ 1,000 ML IV SCH ×2 (02:26→15:03)
[2016-12-23 04:00] VITALS: BP 135/89; PULSE 74; RESP 18; TEMP 97.4; O2SAT 96
[2016-12-23 08:00] VITALS: BP 125/73; PULSE 76; RESP 18; TEMP 97.1; O2SAT 96
[2016-12-23 08:36] LABS: AUTOMATED NEUTROPHIL # 6.2 TH/MM3 (1.8-7.7); BASOPHIL # 0.1 TH/MM3 (0-0.2); BASOPHIL % 1.2 % (0.0-2.0); EOSINOPHIL # 0.3 TH/MM3 (0-0.4); EOSINOPHIL % 3.5 % (0.0-4.0); HEMATOCRIT 33.3 % (35.0-46.0); HEMO FLAGS DIFF FINAL; LYMPH % 18.3 % (9.0-44.0); LYMPHOCYTE # 1.6 TH/MM3 (1.0-4.8); MEAN CELL VOLUME 83.5 FL (80.0-100.0); MEAN CORPUSCULAR HGB CONC 33.5 % (32.0-36.0); MONO % 5.9 % (0.0-8.0); NEUT % 71.1 % (16.0-70.0); PLATELET COUNT 513 TH/MM3 (150-450); RED BLOOD COUNT 3.98 MIL/MM3 (4.00-5.30); RED CELL DISTRIBUTION WIDTH 13.8 % (11.6-17.2); WHITE BLOOD COUNT 8.7 TH/MM3 (4.0-11.0)
[2016-12-23] MEDS: DILTIAZEM-CD 120 MG CAP ER PO SCH (08:37)
[2016-12-23] MEDS: LIPASE/PROTEASE/AMYLASE (12,000/38,000/60,000) CAP PO SCH ×3 (08:37→18:00)
[2016-12-23] MEDS: METOPROLOL TARTRATE 25 MG TAB PO SCH ×2 (08:37→20:58)
[2016-12-23] MEDS: METOCLOPRAMIDE HCL 10 MG/2 ML VIAL IV PRN ×3 (08:37→20:57)
[2016-12-23] MEDS: SUCRALFATE 1 GM TAB PO SCH ×3 (08:37→18:00)
[2016-12-23] MEDS: PANTOPRAZOLE SOD 40 MG DELAYED RELEASE TAB PO SCH ×2 (08:37→20:58)
[2016-12-23] MEDS: SODIUM CHLORIDE 0.9% FLUSH 5 ML FLUSH FLUSH SCH ×2 (09:00→20:58)
[2016-12-23 09:05] LABS: BICARBONATE 20.3 MEQ/L (21.0-32.0); POTASSIUM 4.8 MEQ/L (3.5-5.1)
--- NOTE | 2016-12-23 09:06 | HHI.PR ---
Subjective Remarks tolerting clear liquids Objective Vitals heart reg lung cta abd s/nt ext no edema Vital Signs Date Time Temp Pulse Resp B/P Pulse Ox O2 Delivery O2 Flow Rate FiO2 12/23/16 08:00 97.1 76 18 125/73 96 12/23/16 04:00 97.4 74 18 135/89 96 12/23/16 00:00 98.2 82 17 165/89 96 12/22/16 20:00 98.3 82 18 165/73 95 12/22/16 16:00 97.0 92 16 147/72 97 12/22/16 12:00 97.1 83 16 149/71 98 12/22/16 12/22/16 12/23/16 15:00 23:00 07:00 Intake Total 150 ml 960 ml 1680 ml Output Total 650 ml 500 ml 1100 ml Balance -500 ml 460 ml 580 ml Intake Oral 150 ml 960 ml 150 ml IV Total 1530 ml Output Urine Total 650 ml 500 ml 1100 ml Result Diagram: 12/21/16 0731 12/21/16 0731 Imaging Last Impressions Renal Ultrasound 12/17/16 0000 Signed Impressions: Service Date/Time: December 11:26 - CONCLUSION: 1. Echogenic kidneys which can be seen with medical renal disease. 2. Bilateral renal cysts. 3. Echogenic splenic lesion likely benign and may be related to hemangioma. 4. Hypoechoic lesion on the right mid kidney may be related to a complex cyst. Followup sonogram in 6 months recommended for stability. Yunier Santana MD Chest X-Ray 12/14/16 0910 Signed Impressions: Service Date/Time: Wednesday, December 14, 2016 09:23 - CONCLUSION: Thickened horizontal area of atelectasis in the right lung base. Sanjay Rodriguez MD Abdomen/Pelvis CT 12/14/16 0707 Signed Impressions: Service Date/Time: Wednesday, December 14, 2016 07:53 - CONCLUSION: 1. Patent biliary stent. Head of pancreas remains prominent with minimal peripancreatic induration, slightly increased in the interval. 2. Gastrostomy tube has been removed. 3. Moderate bibasilar parenchymal changes, stable in the interval. Jamie Tabor MD FACR A/P Problem List: (1) Chronic recurrent pancreatitis Status: Acute Plan: - Presented with her typical pancreatitis sx's - poor PO intake - EGD (12/16/16) with Dr. Ortega - small hiatal hernia - antral nodule --> Bx pending - pt's WBC has increased which frequently occurs with Ms. Larsen during her attacks of pancreatitis - Lipase 862 (12/18/16), 1258 (12/20/16) - continue NPO status - IVFs - ativan prn agitation ambulate. long talk with daughter . she wants to hold off on GJ tube. wants to just continue clear liquid diet for now and try to d/c her or Wednesday. She prefers pt be discharged to home for a big birthday republican for her on Wednesday...alot of friends and family out of town. We could try a plan for her to advance diet slowly at home. So just cont clears for now. (2) HTN (hypertension) Status: Chronic Plan: - metoprolol, cardizem CD (3) Anxiety Status: Chronic Plan: - trial of ativan (4) CKD (chronic kidney disease) stage 4, GFR 15-29 ml/min Status: Chronic Plan: stable per her pet caregiver Problem Qualifiers (1) HTN (hypertension): Qualified Code: I10 - Essential hypertension Bryan Quezada MD Dec 23, 2016 09:06
[2016-12-23] MEDS: ACETAMINOPHEN/HYDROcodone 325 MG/5 MG TAB PO PRN ×2 (10:02→15:44)
[2016-12-23 12:00] VITALS: BP 143/75; PULSE 72; RESP 18; TEMP 97.2; O2SAT 99
[2016-12-23 16:00] VITALS: BP 168/95; PULSE 74; RESP 18; TEMP 97.6; O2SAT 100
--- NOTE | 2016-12-23 16:24 | HHI.NPPN ---
Subjective General Problems: Anemia Renal Failure: Chronic, Acute, Stage IV History of Present Illness 80-year-old the female with history of hypertension,chronic recurrent pancreatitis, CKD stage IV . She is now admitted with recurrent abdominal pain, nausea and vomiting. Additional Remarks Patient is alert, taking liquids, no vomiting and abd. pain is better. Review of Systems Gastrointestinal Gastrointestinal: Abdominal Pain, Nausea & Vomiting Objective Data Data 12/22/16 12/23/16 19:00 07:00 Intake Total 1110 ml 1680 ml Output Total 950 ml 1300 ml Balance 160 ml 380 ml Intake Oral 1110 ml 150 ml IV Total 1530 ml Output Urine Total 950 ml 1300 ml Vital Signs Date Time Temp Pulse Resp B/P Pulse Ox O2 Delivery O2 Flow Rate FiO2 12/23/16 12:00 97.2 72 18 143/75 99 12/23/16 08:00 97.1 76 18 125/73 96 12/23/16 04:00 97.4 74 18 135/89 96 12/23/16 00:00 98.2 82 17 165/89 96 12/22/16 20:00 98.3 82 18 165/73 95 -: 12/23/16 0701 12/23/16 0701 Physical Exam General Appearance: No Acute Distress, Comfortable Eyes Eye Exam: Pupils Equal Neck Neck Exam: Neck Supple Pulmonary Resp Exam: Breath Sounds Equal, No Distress, Rhonchi, Decreased Bases Gastrointestinal/Abdomen GI Exam: Soft, Distended GI Remarks Mild epi. tenderness. Extremeties Extremities Exam: Trace Edema Neurologic Neuro Exam: Alert, Awake, Oriented Psychiatric Psych Exam: Appropriate Responses Assessment/Plan Problem List: (1) CKD (chronic kidney disease) stage 4, GFR 15-29 ml/min Plan: Patient has stage 4 chronic kidney disease. She has been following with Dr. Melara. Her Creatinine seems to be close to her baseline. Creatinine is improving. K is 4.8, continue IVF with Kcl. (2) Chronic recurrent pancreatitis Plan: Patient is followed by GI specialist. Rec. G/J Tube placement. (3) HTN (hypertension) Plan: Continue to monitor blood pressure Problem Qualifiers (1) HTN (hypertension): Qualified Code: I10 - Essential hypertension Aaliyah Kennedy MD Dec 23, 2016 16:24
[2016-12-23 20:00] VITALS: BP 143/82; PULSE 78; RESP 18; TEMP 96.5; O2SAT 97
[2016-12-24] VITALS: BP 125/75; PULSE 77; RESP 18; TEMP 96.6; O2SAT 97
[2016-12-24] MEDS: NS + KCL 20 MEQ INJ 1,000 ML IV SCH ×2 (02:42→12:30)
[2016-12-24] MEDS: METOCLOPRAMIDE HCL 10 MG/2 ML VIAL IV PRN ×4 (03:09→22:01)
[2016-12-24] MEDS: HYDROmorphone HCL PF 1 MG/ML VIAL IV PUSH PRN ×4 (03:09→22:03)
[2016-12-24 04:00] VITALS: BP 163/89; PULSE 76; RESP 17; TEMP 97.7; O2SAT 100
[2016-12-24 08:00] VITALS: BP 169/90; PULSE 88; RESP 18; TEMP 97.5; O2SAT 100
[2016-12-24] MEDS: METOPROLOL TARTRATE 25 MG TAB PO SCH ×2 (08:19→20:06)
[2016-12-24] MEDS: SUCRALFATE 1 GM TAB PO SCH ×3 (08:19→16:16)
[2016-12-24] MEDS: PANTOPRAZOLE SOD 40 MG DELAYED RELEASE TAB PO SCH ×2 (08:19→20:06)
[2016-12-24] MEDS: DILTIAZEM-CD 120 MG CAP ER PO SCH (08:19)
[2016-12-24] MEDS: SODIUM CHLORIDE 0.9% FLUSH 5 ML FLUSH FLUSH SCH ×2 (08:20→20:07)
[2016-12-24] MEDS: LIPASE/PROTEASE/AMYLASE (12,000/38,000/60,000) CAP PO SCH ×3 (08:20→16:16)
--- NOTE | 2016-12-24 10:31 | HHI.PR ---
Subjective Remarks guido diet Objective Vitals heart reg lung cta abd s/nt ext no edema Vital Signs Date Time Temp Pulse Resp B/P Pulse Ox O2 Delivery O2 Flow Rate FiO2 12/24/16 08:00 97.5 88 18 169/90 100 12/24/16 04:00 97.7 76 17 163/89 100 12/24/16 00:00 96.6 77 18 125/75 97 12/23/16 20:00 96.5 78 18 143/82 97 12/23/16 16:00 97.6 74 18 168/95 100 12/23/16 12:00 97.2 72 18 143/75 99 12/23/16 12/23/16 12/24/16 15:00 23:00 07:00 Intake Total 480 ml 150 ml Output Total 1300 ml 400 ml 900 ml Balance -820 ml -400 ml -750 ml Intake Oral 480 ml 150 ml Output Urine Total 1300 ml 400 ml 900 ml # Voids 2 # Bowel Movements 2 Result Diagram: 12/23/16 0701 12/23/16 0701 Imaging Last Impressions Renal Ultrasound 12/17/16 0000 Signed Impressions: Service Date/Time: December 11:26 - CONCLUSION: 1. Echogenic kidneys which can be seen with medical renal disease. 2. Bilateral renal cysts. 3. Echogenic splenic lesion likely benign and may be related to hemangioma. 4. Hypoechoic lesion on the right mid kidney may be related to a complex cyst. Followup sonogram in 6 months recommended for stability. Yunier Santana MD Chest X-Ray 12/14/16 0910 Signed Impressions: Service Date/Time: Wednesday, December 14, 2016 09:23 - CONCLUSION: Thickened horizontal area of atelectasis in the right lung base. Sanjay Rodriguez MD Abdomen/Pelvis CT 12/14/16 0707 Signed Impressions: Service Date/Time: Wednesday, December 14, 2016 07:53 - CONCLUSION: 1. Patent biliary stent. Head of pancreas remains prominent with minimal peripancreatic induration, slightly increased in the interval. 2. Gastrostomy tube has been removed. 3. Moderate bibasilar parenchymal changes, stable in the interval. Jamie Tabor MD FACR A/P Problem List: (1) Chronic recurrent pancreatitis Status: Acute Plan: - Presented with her typical pancreatitis sx's - poor PO intake - EGD (12/16/16) with Dr. Ortega - small hiatal hernia - antral nodule --> Bx pending - pt's WBC has increased which frequently occurs with Ms. Larsen during her attacks of pancreatitis - Lipase 862 (12/18/16), 1258 (12/20/16) - continue NPO status - IVFs - ativan prn agitation ambulate. long talk with daughter . she wants to hold off on GJ tube. wants to just continue clear liquid diet for now and try to d/c Wednesday. She prefers pt be discharged to home for a big birthday democrat for her on Wednesday...alot of friends and family out of town. We could try a plan for her to advance diet slowly at home. So just cont clears for now. 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
[2016-12-24 12:00] VITALS: BP 153/72; PULSE 70; RESP 18; TEMP 97.8; O2SAT 100
--- NOTE | 2016-12-24 12:41 | HHI.NPPN ---
Subjective General Problems: Anemia Renal Failure: Chronic, Acute, Stage IV History of Present Illness 80-year-old the female with history of hypertension,chronic recurrent pancreatitis, CKD stage IV . She is now admitted with recurrent abdominal pain, nausea and vomiting. Additional Remarks Patient is alert, sitting on chair, taking liquids, no SOB. Review of Systems Gastrointestinal Gastrointestinal: Abdominal Pain, Nausea & Vomiting Objective Data Data 12/23/16 12/24/16 19:00 07:00 Intake Total 480 ml 150 ml Output Total 1500 ml 1100 ml Balance -1020 ml -950 ml Intake Oral 480 ml 150 ml Output Urine Total 1500 ml 1100 ml # Voids 2 # Bowel Movements 2 Vital Signs Date Time Temp Pulse Resp B/P Pulse Ox O2 Delivery O2 Flow Rate FiO2 12/24/16 12:00 97.8 70 18 153/72 100 12/24/16 08:00 97.5 88 18 169/90 100 12/24/16 04:00 97.7 76 17 163/89 100 12/24/16 00:00 96.6 77 18 125/75 97 12/23/16 20:00 96.5 78 18 143/82 97 12/23/16 16:00 97.6 74 18 168/95 100 -: 12/23/16 0701 12/23/16 0701 Physical Exam General Appearance: No Acute Distress, Comfortable Eyes Eye Exam: Pupils Equal Neck Neck Exam: Neck Supple Pulmonary Resp Exam: Breath Sounds Equal, No Distress, Rhonchi, Decreased Bases Gastrointestinal/Abdomen GI Exam: Soft, Distended GI Remarks Mild epi. tenderness. Extremeties Extremities Exam: Trace Edema Neurologic Neuro Exam: Alert, Awake, Oriented Psychiatric Psych Exam: Appropriate Responses Assessment/Plan Problem List: (1) CKD (chronic kidney disease) stage 4, GFR 15-29 ml/min Plan: Patient has stage 4 chronic kidney disease. She has been following with Dr. Melara. Her Creatinine seems to be close to her baseline. No new BMP. Continue IVF and advance diet as tolerated. (2) Chronic recurrent pancreatitis Plan: Patient is followed by GI specialist. Rec. G/J Tube placement. (3) HTN (hypertension) Plan: Continue to monitor blood pressure Problem Qualifiers (1) HTN (hypertension): Qualified Code: I10 - Essential hypertension Aaliyah Kennedy MD Dec 24, 2016 12:41
[2016-12-24] MEDS: ACETAMINOPHEN 325 MG TAB PO PRN ×2 (14:11→20:06)
[2016-12-24 16:00] VITALS: BP 145/78; PULSE 70; RESP 16; TEMP 97.9; O2SAT 97
[2016-12-24 20:00] VITALS: BP 178/93; PULSE 71; RESP 18; TEMP 97.3; O2SAT 98
[2016-12-25] VITALS: BP 161/92; PULSE 69; RESP 17; TEMP 97.1; O2SAT 100
[2016-12-25 04:00] VITALS: BP 164/92; PULSE 72; RESP 18; TEMP 98; O2SAT 97
[2016-12-25] MEDS: HYDROmorphone HCL PF 1 MG/ML VIAL IV PUSH PRN ×3 (04:02→17:23)
[2016-12-25] MEDS: METOCLOPRAMIDE HCL 10 MG/2 ML VIAL IV PRN ×2 (04:02→23:40)
[2016-12-25] MEDS: NS + KCL 20 MEQ INJ 1,000 ML IV SCH ×3 (04:07→23:42)
[2016-12-25] MEDS: ACETAMINOPHEN 325 MG TAB PO PRN (06:11)
[2016-12-25] MEDS ORDERED: methylPREDNISolone SOD SUCC 125 MG/2 ML VIAL IV PUSH ONE ×2 (07:45→21:30)
[2016-12-25 08:00] VITALS: BP 167/90; PULSE 78; RESP 16; TEMP 97.6; O2SAT 97
[2016-12-25] MEDS: DILTIAZEM-CD 120 MG CAP ER PO SCH (08:11)
[2016-12-25] MEDS: SUCRALFATE 1 GM TAB PO SCH ×3 (08:11→17:22)
[2016-12-25] MEDS: METOPROLOL TARTRATE 25 MG TAB PO SCH ×2 (08:11→20:44)
[2016-12-25] MEDS: LIPASE/PROTEASE/AMYLASE (12,000/38,000/60,000) CAP PO SCH ×3 (08:11→17:22)
[2016-12-25] MEDS: PANTOPRAZOLE SOD 40 MG DELAYED RELEASE TAB PO SCH ×2 (08:12→20:44)
[2016-12-25] MEDS: SODIUM CHLORIDE 0.9% FLUSH 5 ML FLUSH FLUSH SCH ×2 (08:23→20:44)
--- NOTE | 2016-12-25 08:52 | HHI.PR ---
Subjective Remarks has some epigastric pains overnight and this AM she is hoping to go home today Objective Vitals mild epigastric tenderness. Vital Signs Date Time Temp Pulse Resp B/P Pulse Ox O2 Delivery O2 Flow Rate FiO2 12/25/16 08:00 97.6 78 16 167/90 97 12/25/16 04:00 98.0 72 18 164/92 97 12/25/16 00:00 97.1 69 17 161/92 100 12/24/16 20:00 97.3 71 18 178/93 98 12/24/16 16:00 97.9 70 16 145/78 97 12/24/16 12:00 97.8 70 18 153/72 100 12/24/16 12/24/16 12/25/16 15:00 23:00 07:00 Intake Total 480 ml 1380 ml 240 ml Output Total 800 ml Balance -320 ml 1380 ml 240 ml Intake Oral 480 ml 480 ml 240 ml IV Total 900 ml Output Urine Total 800 ml # Voids 2 2 # Bowel Movements 1 0 0 Result Diagram: 12/23/16 0701 12/23/16 0701 Imaging Last Impressions Renal Ultrasound 12/17/16 0000 Signed Impressions: Service Date/Time: December 11:26 - CONCLUSION: 1. Echogenic kidneys which can be seen with medical renal disease. 2. Bilateral renal cysts. 3. Echogenic splenic lesion likely benign and may be related to hemangioma. 4. Hypoechoic lesion on the right mid kidney may be related to a complex cyst. Followup sonogram in 6 months recommended for stability. Yunier Santana MD Chest X-Ray 12/14/16 0910 Signed Impressions: Service Date/Time: Wednesday, December 14, 2016 09:23 - CONCLUSION: Thickened horizontal area of atelectasis in the right lung base. Sanjay Rodriguez MD Abdomen/Pelvis CT 12/14/16 0707 Signed Impressions: Service Date/Time: Wednesday, December 14, 2016 07:53 - CONCLUSION: 1. Patent biliary stent. Head of pancreas remains prominent with minimal peripancreatic induration, slightly increased in the interval. 2. Gastrostomy tube has been removed. 3. Moderate bibasilar parenchymal changes, stable in the interval. Jamie Tabor MD FACR A/P Problem List: (1) Chronic recurrent pancreatitis Status: Acute Plan: - Presented with her typical pancreatitis sx's - poor PO intake - EGD (12/16/16) with Dr. Ortega - small hiatal hernia - antral nodule --> Bx pending - pt's WBC has increased which frequently occurs with Ms. Larsen during her attacks of pancreatitis - Lipase 862 (12/18/16), 1258 (12/20/16) - continue NPO status - IVFs - ativan prn agitation ambulate. long talk with daughter . she wants to hold off on GJ tube. wants to just continue clear liquid diet for now and try to d/c home. She prefers pt be discharged to home for a big birthday green party for her on Wednesday...alot of friends and family out of town. We could try a plan for her to advance diet slowly at home. So just cont clears for now. In past she responded to steroids. will give dose now and decide if she is to go home on taper. 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
[2016-12-25] MEDS ORDERED: ONDANSETRON HCL 4 MG/2 ML VIAL ONE (08:53)
--- NOTE | 2016-12-25 10:39 | HHI.NPPN ---
Subjective General Problems: Anemia Renal Failure: Chronic, Acute, Stage IV History of Present Illness 80-year-old the female with history of hypertension,chronic recurrent pancreatitis, CKD stage IV . She is now admitted with recurrent abdominal pain, nausea and vomiting. Additional Remarks Patient is alert, vomited once, eating better, no abd. pain. Review of Systems Gastrointestinal Gastrointestinal: Abdominal Pain, Nausea & Vomiting Objective Data Data 12/24/16 12/25/16 19:00 07:00 Intake Total 1380 ml 720 ml Output Total 800 ml Balance 580 ml 720 ml Intake Oral 480 ml 720 ml IV Total 900 ml Output Urine Total 800 ml # Voids 4 # Bowel Movements 1 0 Vital Signs Date Time Temp Pulse Resp B/P Pulse Ox O2 Delivery O2 Flow Rate FiO2 12/25/16 08:00 97.6 78 16 167/90 97 12/25/16 04:00 98.0 72 18 164/92 97 12/25/16 00:00 97.1 69 17 161/92 100 12/24/16 20:00 97.3 71 18 178/93 98 12/24/16 16:00 97.9 70 16 145/78 97 12/24/16 12:00 97.8 70 18 153/72 100 -: 12/23/16 0701 12/23/16 0701 Physical Exam General Appearance: No Acute Distress, Comfortable Eyes Eye Exam: Pupils Equal Neck Neck Exam: Neck Supple Pulmonary Resp Exam: Breath Sounds Equal, No Distress, Rhonchi, Decreased Bases Gastrointestinal/Abdomen GI Exam: Soft, Distended GI Remarks Mild epi. tenderness. Extremeties Extremities Exam: Trace Edema Neurologic Neuro Exam: Alert, Awake, Oriented Psychiatric Psych Exam: Appropriate Responses Assessment/Plan Problem List: (1) CKD (chronic kidney disease) stage 4, GFR 15-29 ml/min Plan: Patient has stage 4 chronic kidney disease. She has been following with Dr. Melara. Her Creatinine seems to be close to her baseline. No new BMP. Last Creatinine was 2.1, and GFR was 27 ml/min., possibly at her baseline. (2) Chronic recurrent pancreatitis Plan: Patient is followed by GI specialist. Rec. G/J Tube placement. (3) HTN (hypertension) Plan: Continue to monitor blood pressure Problem Qualifiers (1) HTN (hypertension): Qualified Code: I10 - Essential hypertension Aaliyah Kennedy MD Dec 25, 2016 10:39
[2016-12-25 12:00] VITALS: BP 156/84; PULSE 70; RESP 16; TEMP 98.2; O2SAT 96
[2016-12-25 16:00] VITALS: BP 158/82; PULSE 72; RESP 16; TEMP 97.9; O2SAT 97
[2016-12-25 20:00] VITALS: PULSE 87; RESP 16; TEMP 97.1; O2SAT 100
[2016-12-25] MEDS: ACETAMINOPHEN/HYDROcodone 325 MG/5 MG TAB PO PRN (20:44)
[2016-12-26 00:07] VITALS: BP 152/82; PULSE 66; RESP 16; TEMP 97.5; O2SAT 100
[2016-12-26 00:09] VITALS: BP 152/82; PULSE 66; RESP 16; TEMP 97.5; O2SAT 100
[2016-12-26 04:00] VITALS: BP 130/90; PULSE 63; RESP 16; TEMP 98; O2SAT 98
[2016-12-26 07:13] VITALS: BP 156/84; PULSE 90; RESP 20; TEMP 98.7; O2SAT 97
[2016-12-26] MEDS ORDERED: NORC5TAB PO (08:45)
[2016-12-26] MEDS ORDERED: PRED10 PO (08:45)
--- NOTE | 2016-12-26 08:46 | HHI.DCPOC ---
Discharge Care Plan Diagnosis: (1) Pancreatitis, recurrent (2) Acute on chronic kidney disease, stage 3 (3) Duodenitis Goals to Promote Your Health * To prevent worsening of your condition and complications * To maintain your health at the optimal level Directions to Meet Your Goals Take your medications as prescribed Follow your dietary instruction Follow activity as directed Keep your appointments as scheduled Take your immunizations and boosters as scheduled If your symptoms worsen call your PCP, if no PCP go to Urgent Care Center or Emergency Room Smoking is Dangerous to Your Health. Avoid second hand smoke Call the 24-hour hour crisis hotline for domestic abuse at Bryan Quezada MD Dec 26, 2016 08:46
[2016-12-26] MEDS: DILTIAZEM-CD 120 MG CAP ER PO SCH (09:08)
[2016-12-26] MEDS: LIPASE/PROTEASE/AMYLASE (12,000/38,000/60,000) CAP PO SCH (09:08)
[2016-12-26] MEDS: SUCRALFATE 1 GM TAB PO SCH (09:08)
[2016-12-26] MEDS: PANTOPRAZOLE SOD 40 MG DELAYED RELEASE TAB PO SCH (09:08)
[2016-12-26] MEDS: METOPROLOL TARTRATE 25 MG TAB PO SCH (09:08)
[2016-12-26] MEDS: ACETAMINOPHEN/HYDROcodone 325 MG/5 MG TAB PO PRN (09:08)
[2016-12-26] MEDS: SODIUM CHLORIDE 0.9% FLUSH 5 ML FLUSH FLUSH SCH (09:09)
[2016-12-26] MEDS ORDERED: methylPREDNISolone SOD SUCC 125 MG/2 ML VIAL IV PUSH ONE (09:30)
--- NOTE | 2016-12-26 11:11 | HHI.NPPN ---
Subjective General Problems: Anemia Renal Failure: Chronic, Acute, Stage IV History of Present Illness 80-year-old the female with history of hypertension,chronic recurrent pancreatitis, CKD stage IV . She is now admitted with recurrent abdominal pain, nausea and vomiting. Additional Remarks Patient is alert, getting ready to go home, seen almost 30 min. ago. Review of Systems Gastrointestinal Gastrointestinal: Abdominal Pain, Nausea & Vomiting Objective Data Data 12/25/16 12/26/16 19:00 07:00 Intake Total 480 ml 1904 ml Output Total 602 ml Balance -122 ml 1904 ml Intake Oral 480 ml 560 ml IV Total 1344 ml Output Urine Total 600 ml Emesis 2 ml # Voids 0 # Bowel Movements 1 0 Vital Signs Date Time Temp Pulse Resp B/P Pulse Ox O2 Delivery O2 Flow Rate FiO2 12/26/16 07:13 98.7 90 20 156/84 97 12/26/16 04:00 98.0 63 16 130/90 98 12/26/16 00:09 97.5 66 16 152/82 100 12/26/16 00:07 97.5 66 16 152/82 100 12/25/16 21:44 18 12/25/16 20:00 97.1 87 16 100 12/25/16 17:53 18 12/25/16 16:00 97.9 72 16 158/82 97 12/25/16 12:00 98.2 70 16 156/84 96 -: 12/23/16 0701 12/23/16 0701 Physical Exam General Appearance: No Acute Distress, Comfortable Eyes Eye Exam: Pupils Equal Neck Neck Exam: Neck Supple Pulmonary Resp Exam: Breath Sounds Equal, No Distress, Rhonchi, Decreased Bases Gastrointestinal/Abdomen GI Exam: Soft, Distended GI Remarks Mild epi. tenderness. Extremeties Extremities Exam: Trace Edema Neurologic Neuro Exam: Alert, Awake, Oriented Psychiatric Psych Exam: Appropriate Responses Assessment/Plan Problem List: (1) CKD (chronic kidney disease) stage 4, GFR 15-29 ml/min Plan: Patient has stage 4 chronic kidney disease. She has been following with Dr. Melara. Her Creatinine seems to be close to her baseline. No new BMP. Last Creatinine was 2.1, and GFR was 27 ml/min., Now for D/C home,. told to follow with Dr. Melara, she has appointment. (2) Chronic recurrent pancreatitis Plan: Patient is followed by GI specialist. Rec. G/J Tube placement. (3) HTN (hypertension) Plan: Continue to monitor blood pressure Problem Qualifiers (1) HTN (hypertension): Qualified Code: I10 - Essential hypertension Aaliyah Kennedy MD Dec 26, 2016 11:11
--- NOTE | 2016-12-26 12:57 | HHI.DS ---
Discharge Summary Admission Date Dec 15, 2016 at 13:52 Discharge Date: Dec 26, 2016 Admitting Diagnosis intractable abdominal pain, acute renal insufficiency (1) Chronic recurrent pancreatitis Diagnosis: Principal (2) HTN (hypertension) Diagnosis: Secondary (3) Anxiety Diagnosis: Secondary (4) CKD (chronic kidney disease) stage 4, GFR 15-29 ml/min Diagnosis: Secondary Brief History Pt has had numerous previous admissions d/t recurrent pancreatis. Pt has followed closely for many years with [facility] and has also been seen at the [facility]. She previously has had a cholecystectomy and sphincterotomy. Pt was last admitted d/t recurrent pancreatitis 11/13/15-01/02/16. During that admission, pt was treated with IVF and pain medications, but treatment was complicated by narcotic dependency. Pt typically has a reactive leukocytosis with her pancreatitis, and this has been seen on previous admissions. Pt underwent ERCP with stent placement 11/22/15. Pt had G/J tube placed on 11/28/15, but this was removed since prior hospitalization. Pt underwent repeat ERCP (12/11/15) Pt underwent biliary stent exchange with placement of a 10 german, 9 cm long plastic stent. During prior hospitalization , pt's case was confounded by a prolonged noninfectious inflammatory process which did NOT respond to antibiotics. Ultimately pt was placed on IV Solu- Medrol with a good clinical response and improvement of her leukocytosis. Pt was discharged to home on a prolonged oral prednisone taper. On this occasion, pt presented to the ER with c/o abdmianl pain and nausea. Pt was seen in the ER 3 days prior with similar complaints 12/11/16. Pt states that the abdominal pain is located at the RUQ and radiates to the epigastric region. Pt 's symptoms started 1 week ago, but have worsened over the last 3 days. Pt now c/o nausea and vomiting. Pt reports 2 episodes of vomiting today. On 12/11/16 pt's lipase was 1,259. Today (12/14/16) pt's lipase is down to 343. Pt refused admission and went home at prior ER visit (12/11/16). Initially the pain improved at home but then again worsened this AM leading her to seek attention in the ER. Pt denies any fever or chills. Pt's Creatinine is currently elevated. During prior hospitalization her creatinine was 1.29 on discharge (12/29/15) and today (12/14/16) 2.46. Pt has NOT been eating well over the last several days with increasing nausea and vomiting. At the time of my visit with Ms. Larsen in the H-Pod. Pt appears quite comfortable and all smiles. Pt reports that last BM was 2 days ago. Pt's bowel sounds are present, but decreased. CT abd/pelvis (12/14/16) --> noted biliary stent, but NO acute findings. Pt will be admitted to observation status and received IVFs. Hopefully pt will be stable enough for discharge to home tomorrow. CBC/BMP: 12/23/16 0701 12/23/16 0701 Hospital Course - Presented with her typical pancreatitis sx's -poor PO intake - EGD (12/16/16) with Dr. Ortega - small hiatal hernia - antral nodule -->biopsied -unable to advance diet fully here w/out recurrence of sx's. GI recommended GJ tube. -long talk with daughter . she wants to hold off on GJ tube. wants to just continue clear liquid diet for now and try to d/c home. She prefers pt be discharged to home for a big birthday republican for her on Wednesday...alot of friends and family out of town. We could try a plan for her to advance diet slowly at home. So just cont clears for now. In past she responded to steroids. Pt Condition on Discharge: Stable Discharge Disposition: Discharge Home Discharge Instructions DIET: Follow Instructions for: Clear Liquid Diet Additional Diet Instructions: clear liquid x 3 days, then advance to full liquid slowly next week. If tolerated then advance to soft/low fat diet. Activities you can perform: Regular-No Restrictions Follow up Referrals: Gastroenterology - 2 Weeks @ [facility] PCP Follow-up - [address] france New Medications: Hydrocodone-Acetaminophen ([place]) 5-325 mg Tab 1 TAB PO Q4H PRN PAIN #30 Ref 0 TAB Prednisone (Prednisone) 10 Mg Tab 10 MG PO DIRECTED prednisone 20mg po bid x 3 days, 10mg po bid x 3 days, 10mg po daily x 4 days Inflammation Days 10 Ref 0 TAB Continued Medications: Diltiazem ER 24 HR (Cartia Xt) 120 Mg Caper 120 MG PO DAILY #30 Ref 0 CAP Metoprolol Tartrate (Metoprolol Tartrate) 25 Mg Tab 25 MG PO BID #60 Ref 0 TAB Ondansetron Odt (Zofran Odt) 4 Mg Tab 4 MG SL Q8HR May substitute non-ODT form. PRN Nausea/Vomiting #15 TAB Pancrelipase (Creon) 12,000-38,000-60,000 Units Cap 1 CAP PO TIDPC Digestive Aid #90 Ref 0 CAP Pantoprazole (Pantoprazole) 40 Mg Tab 40 MG PO BID Reflux #30 Ref 0 TAB Sucralfate (Sucralfate) 1 Gm Tab 1 GM PO TID on empty stomach Duodenal ulcer #90 Ref 0 TAB Discontinued Medications: Hydrocodone-Acetaminophen (Hydrocodone-Acetaminophen) 5-325 mg Tab 1 TAB PO qhs PRN PAIN Ref 0 TAB Hydrocodone-Acetaminophen (Lortab) 5-325 Mg Tab 1-2 TAB PO Q6H PRN PAIN #20 TAB Bryan Quezada MD Dec 26, 2016 12:57
== END 2016-12-26 11:00 | disposition home or self-care (01) | DRG 439 ==
LOC: NEPC 05:44 → NEDA 09:28 → NEPHCDU 10:39 → OBSVTOIN 12-15 13:52 → HOCA 12-15 22:49
PROVIDERS: ADMIT Hospitalist; ATTEND Hospitalist
PROC: 0DB68ZX Excision of Stomach, Via Natural or Artificial Opening Endoscopic, Diagnostic (ICD-10-PCS; principal; 2016-12-16 10:50)
DX: K86.1 Other chronic pancreatitis (principal); N18.4 Chronic kidney disease, stage 4 (severe); F11.20 Opioid dependence, uncomplicated; E86.0 Dehydration; N28.1 Cyst of kidney, acquired; F41.9 Anxiety disorder, unspecified; I12.9 Hypertensive chronic kidney disease with stage 1 through stage 4 chronic kidney disease, or unspecified chronic kidney disease; K44.9 Diaphragmatic hernia without obstruction or gangrene; E78.00 Pure hypercholesterolemia, unspecified; K21.9 Gastro-esophageal reflux disease without esophagitis; Z96.89 Presence of other specified functional implants; Z87.11 Personal history of peptic ulcer disease
CPT/HCPCS: 71010; 74176; 76775; 76937; 80048; 80053; 81001; 82550; 83690; 83735; 84484; 85025; 85610; 85730; 87086; 88305; 88312; 93005; 96361; 96374; 96375; C9113; G0378; G8987-GP; G8988-GP; J1170; J2060; J2270; J2405; J2765; J2930; J3480; J7030

== ENCOUNTER 2017-01-11 06:52 | Inpatient (IN) | payer MEDICARE ==
[2017-01-11] VITALS (12 sets, daily range): BP systolic 108–142; BP diastolic 56–78; PULSE 78–88; RESP 16–20; TEMP 97.8–98.8; O2SAT 95–97
[~2017-01-11] VITALS: Ht 167.6 cm; Wt 71.7 kg
[~2017-01-11 06:52] MED LIST changes: -HYDR-3516 PO; -HYDR-3533 PO; +NORC5TAB PO; +PRED10 PO
--- NOTE | 2017-01-11 07:16 | PD ---
HPI . recurrent abdominal pain: hx of chronic pancreatitis Chief Complaint: Abdominal Pain Time Seen by Provider: 07:04 Travel History International Travel<30 days: No Contact w/Intl Traveler<30days: No Traveled to known affect area: No History of Present Illness HPI 81-year-old female with history of chronic recurrent pancreatitis, hypertension , anxiety and chronic kidney disease stage IV here with recurrent abdominal pain. Patient was recently discharged from the hospital on December 26, 2016 secondary chronic recurrent pancreatitis. Patient is here telling me she has the same pain in the right upper quadrant and sometimes it fluctuates all over the abdomen. Pain is rated as 8/10 accompanied by some nausea. She denies any vomiting, diarrhea or constipation. Her last bowel movement was 2 days ago.. Patient is followed closely by advanced GI has also been seen at the [facility]. She previously had a cholecystectomy and sphincterectomy. At the time of examination patient admits to some intermittent shortness of breath. She denies any chest pain, diaphoresis, vomiting, diarrhea or constipation. last CT scan on abd/pelvis 12-14-16 with patent biliary stent and prominent head of pancreas PFSH Past Medical History Arthritis: Yes Asthma: No Atrial Fibrillation: Yes Autoimmune Disease: No Anxiety: No Depression: No Heart Rhythm Problems: Yes Cancer: No Cardiovascular Problems: Yes (HTN) High Cholesterol: Yes Chemotherapy: No Chest Pain: Yes Congestive Heart Failure: No COPD: No Cerebrovascular Accident: No Diabetes: No Diminished Hearing: No Endocrine: No Gastrointestinal Disorders: Yes (HIATAL HERNIA) GERD: Yes Glaucoma: No Genitourinary: No Hepatitis: No Hiatal Hernia: Yes Hypertension: Yes Immune Disorder: No Implanted Vascular Access Dvce: Yes Kidney Stones: No Musculoskeletal: No Neurologic: No Psychiatric: No Reproductive: No Respiratory: No Migraines: No Pancreatitis: Yes Radiation Therapy: No Renal Failure: No Seizures: No Sickle Cell Disease: No Sleep Apnea: No Thyroid Disease: No Ulcer: No ?: Not Menopausal: Yes Past Surgical History Abdominal Surgery: Yes (cholecystectomy, sphincterotomy) Arteriovenous Shunt: No Body Medical Devices: stent Cardiac Surgery: No Cholecystectomy: Yes (2012) Ear Surgery: No Endocrine Surgery: No Eye Surgery: Yes Genitourinary Surgery: Yes (HEMORRHOIDECTOMY) Gynecologic Surgery: No Insulin Pump: No Joint Replacement: Yes (TKR LEFT KNEE) Neurologic Surgery: No Oral Surgery: No Pacemaker: No Thoracic Surgery: No Other Surgery: Yes (GROWTH REMOVED FROM LEFT WRIST/Sinus) Social History Alcohol Use: No Tobacco Use: No Substance Use: Yes Allergies-Medications (Allergen,Severity, Reaction): Coded Allergies: No Known Allergies (Verified , 01/11/17) Reported Meds & Prescriptions Reported Meds & Active Scripts Active [place] (Hydrocodone-Acetaminophen) 5-325 mg Tab 1 Tab PO Q4H PRN Zofran Odt (Ondansetron Odt) 4 Mg Tab 4 Mg SL Q8HR PRN May substitute non-ODT form. Reported Pantoprazole (Pantoprazole Sodium) 40 Mg Tab 40 Mg PO BID Creon (Amylase/Lipase/Protease) 12,000-38,000-60,000 Units Cap 1 Cap PO TIDPC Metoprolol Tartrate 25 Mg Tab 25 Mg PO BID Cartia Xt (Diltiazem ER 24 HR) 120 Mg Caper 120 Mg PO DAILY Sucralfate 1 Gm Tab 1 Gm PO TID on empty stomach Review of Systems General / Constitutional: No: Fever Eyes: No: Visual changes HENT: No: Headaches Cardiovascular: No: Chest Pain or Discomfort Respiratory: Positive: Shortness of Breath Gastrointestinal: Positive: Abdominal Pain Genitourinary: No: Dysuria Musculoskeletal: No: Pain Skin: No Rash Neurologic: No: Weakness Psychiatric: No: Depression Endocrine: No: Polydipsia Hematologic/Lymphatic: No: Easy Bruising Physical Exam Narrative GENERAL: AAO x 3, no acute distress, Well-nourished, well-developed patient. SKIN: Warm and dry. No visible rashes or bruising. HEAD: Normocephalic and atraumatic. EYES: No scleral icterus. No injection or drainage. EOM intact, PERRLA ENT: No nasal drainage noted. Mucous membranes pink. Airway patent. NECK: Supple, trachea midline. No JVD. No lymphadenopathy. CARDIOVASCULAR: Regular rate and rhythm without murmurs, gallops, or rubs. RESPIRATORY: Breath sounds equal bilaterally. No accessory muscle use. No rhonchi or rales. GASTROINTESTINAL: Abdomen soft, nondistended. Mild tenderness to deep palpation right upper quadrant. EXTREMITIES: No cyanosis or edema. BACK: Nontender without obvious deformity. No CVA tenderness. PSYCH: AAO x 3, normal affect. Data Data Last Documented VS Vital Signs Date Time Temp Pulse Resp B/P Pulse Ox O2 Delivery O2 Flow Rate FiO2 01/11/17 08:19 78 20 118/56 96 Room Air 01/11/17 07:12 98.8 Orders Complete Blood Count With Diff (01/11/17 07:16) Comprehensive Metabolic Panel (01/11/17 07:16) Lipase (01/11/17 07:16) Prothrombin Time / Inr (Pt) (01/11/17 07:16) Act Partial Throm Time (Ptt) (01/11/17 07:16) Urinalysis - C+S If Indicated (01/11/17 07:16) Iv Access Insert/Monitor (01/11/17 07:16) Ecg Monitoring (01/11/17 07:16) Oximetry (01/11/17 07:16) Sodium Chloride 0.9% Flush (Ns Flush) (01/11/17 07:30) Electrocardiogram (01/11/17 07:16) Chest, Single Ap (01/11/17 07:16) Ckmb (Isoenzyme) Profile (01/11/17 07:16) Magnesium (Mg) (01/11/17 07:16) Troponin I (01/11/17 07:16) Sodium Chloride 0.9% Flush (Ns Flush) (01/11/17 07:30) Hydromorphone Pf Inj (Dilaudid Pf Inj) (01/11/17 07:30) Urine Culture (01/11/17 07:50) Lactic Acid Sepsis Protocol (01/11/17 09:29) Blood Culture (01/11/17 09:29) Admit To Inpatient (01/11/17 ) Code Status (01/11/17 09:36) Vital Signs (Adult) Q4H (01/11/17 09:36) Activity Oob With Assistance (01/11/17 09:36) Diet Npo (01/11/17 Breakfast) Sodium Chloride 0.9% Flush (Ns Flush) (01/11/17 09:45) Sodium Chloride 0.9% Flush (Ns Flush) (01/11/17 21:00) Acetaminophen (Tylenol) (01/11/17 09:45) Ondansetron Inj (Zofran Inj) (01/11/17 09:45) Bisacodyl Supp (Dulcolax Supp) (01/11/17 09:45) Magnesium Hydroxide Liq (Milk Of Magnesi (01/11/17 09:45) Resp Oxygen Brooks C Titrat 1-4 L (01/11/17 ) Pt Request For Service (01/11/17 09:36) Scd Bilateral/Knee High ATIYA.BID (01/11/17 09:36) Naloxone Inj (Narcan Inj) (01/11/17 09:45) Inpatient Certification (01/11/17 ) Ceftriaxone Inj (Rocephin Inj) (01/11/17 09:45) Sodium Chlor 0.9% 1000 Ml Inj (Ns 1000 M (01/11/17 09:45) 1/2 Ns + Kcl 20 Meq Inj (/2 Ns + Kcl 20 (01/11/17 09:45) Hydromorphone Pf Inj (Dilaudid Pf Inj) (01/11/17 09:45) Acetamin-Hydrocod 325-5 Mg ([place] 5-325 (01/11/17 09:45) Ct Abd/Pel W/O Iv Contrast (01/11/17 ) Diltiazem Cd (Cardizem Cd) (01/12/17 09:00) Metoprolol Tartrate (Lopressor) (01/11/17 21:00) Puhlmn-Orpgcb-Aiup 12-38-60 (Creon 12-38 (01/11/17 13:30) Pantoprazole (Protonix) (01/11/17 21:00) Sucralfate (Carafate) (01/11/17 12:00) Enalaprilat Inj (Vasotec Inj) (01/11/17 10:00) Clonidine (Catapres) (01/11/17 10:00) Admit Order (Ed Use Only) (01/11/17 09:53) Labs Laboratory Tests Test 01/11/17 01/11/17 07:50 08:00 Prothrombin Time 12.1 SEC Prothromb Time International 1.1 RATIO Ratio Activated Partial 38.9 SEC Thromboplast Time Urine Color YELLOW Urine Turbidity HAZY Urine pH 5.5 Urine Specific [place] 1.017 Urine Protein 100 mg/dL Urine Glucose (UA) NEG mg/dL Urine Ketones TRACE mg/dL Urine Occult Blood MOD Urine Nitrite NEG Urine Bilirubin NEG Urine Urobilinogen LESS THAN 2.0 MG/DL Urine Leukocyte Esterase LARGE Urine RBC 12 /hpf Urine WBC 152 /hpf Urine WBC Clumps FEW Urine Squamous Epithelial 3 /hpf Cells Urine Transitional Epithelial <1 /hpf Cells Urine Bacteria FEW /hpf Microscopic Urinalysis Comment CULTURE INDICATED Sodium Level 140 MEQ/L Potassium Level 3.7 MEQ/L Chloride Level 105 MEQ/L Carbon Dioxide Level 20.5 MEQ/L Anion Gap 15 MEQ/L Blood Urea Nitrogen 35 MG/DL Creatinine 3.74 MG/DL Estimat Glomerular Filtration 14 ML/MIN Rate Random Glucose 107 MG/DL Calcium Level 8.5 MG/DL Magnesium Level 2.1 MG/DL Total Bilirubin 0.6 MG/DL Aspartate Amino Transf 8 U/L (AST/SGOT) Alanine Aminotransferase 12 U/L (ALT/SGPT) Alkaline Phosphatase 129 U/L Total Creatine Kinase 52 U/L Troponin I 0.04 NG/ML Total Protein 7.1 GM/DL Albumin 2.3 GM/DL Lipase 113 U/L White Blood Count 18.2 TH/MM3 Red Blood Count 4.19 MIL/MM3 Hemoglobin 11.3 GM/DL Hematocrit 35.9 % Mean Corpuscular Volume 85.7 FL Mean Corpuscular Hemoglobin 27.0 PG Mean Corpuscular Hemoglobin 31.5 % Concent Red Cell Distribution Width 15.8 % Platelet Count 198 TH/MM3 Mean Platelet Volume 8.8 FL Neutrophils (%) (Auto) 89.8 % Lymphocytes (%) (Auto) 4.8 % Monocytes (%) (Auto) 4.4 % Eosinophils (%) (Auto) 0.7 % Basophils (%) (Auto) 0.3 % Neutrophils # (Auto) 16.3 TH/MM3 Lymphocytes # (Auto) 0.9 TH/MM3 Monocytes # (Auto) 0.8 TH/MM3 Eosinophils # (Auto) 0.1 TH/MM3 Basophils # (Auto) 0.0 TH/MM3 CBC Comment DIFF FINAL Differential Comment MDM Medical Decision Making Medical Screen Exam Complete: Yes Emergency Medical Condition: Yes Medical Record Reviewed: Yes (last discharge 12/26/16) Differential Diagnosis Acute on chronic pancreatitis, PUD, dehydration Narrative Course 81-year-old female with history of chronic recurrent pancreatitis, hypertension , anxiety and chronic kidney disease stage IV here with recurrent abdominal pain. Patient was recently discharged from the hospital on December 26, 2016 secondary chronic recurrent pancreatitis. Patient is here telling me she has the same pain in the right upper quadrant and sometimes it fluctuates all over the abdomen. Pain is rated as 8/10 accompanied by some nausea. She denies any vomiting, diarrhea or constipation. Her last bowel movement was 2 days ago.. Patient is followed closely by advanced GI has also been seen at the [facility]. She previously had a cholecystectomy and sphincterectomy. At the time of examination patient admits to some intermittent shortness of breath. She denies any chest pain, diaphoresis, vomiting, diarrhea or constipation. last CT scan on abd/pelvis 12-14-16 with patent biliary stent and prominent head of pancreas Patient seen and examined. Discussed with Dr. Guerrier Recommend labs, ekg, and UA EKG: NSR Dilaudid for pain control CXR no acute disease White count elevated. Creatinine elevated. Lactic acid and blood cultures ordered. Patient will be admitted for acute kidney failure, leukocytosis with UTI and recurrent acute on chronic pancreatitis. Laboratory Tests Test 01/11/17 01/11/17 07:50 08:00 Prothrombin Time 12.1 SEC Prothromb Time International 1.1 RATIO Ratio Activated Partial 38.9 SEC Thromboplast Time Urine Color YELLOW Urine Turbidity HAZY Urine pH 5.5 Urine Specific [place] 1.017 Urine Protein 100 mg/dL Urine Glucose (UA) NEG mg/dL Urine Ketones TRACE mg/dL Urine Occult Blood MOD Urine Nitrite NEG Urine Bilirubin NEG Urine Urobilinogen LESS THAN 2.0 MG/DL Urine Leukocyte Esterase LARGE Urine RBC 12 /hpf Urine WBC 152 /hpf Urine WBC Clumps FEW Urine Squamous Epithelial 3 /hpf Cells Urine Transitional Epithelial <1 /hpf Cells Urine Bacteria FEW /hpf Microscopic Urinalysis Comment CULTURE INDICATED Sodium Level 140 MEQ/L Potassium Level 3.7 MEQ/L Chloride Level 105 MEQ/L Carbon Dioxide Level 20.5 MEQ/L Anion Gap 15 MEQ/L Blood Urea Nitrogen 35 MG/DL Creatinine 3.74 MG/DL Estimat Glomerular Filtration 14 ML/MIN Rate Random Glucose 107 MG/DL Calcium Level 8.5 MG/DL Magnesium Level 2.1 MG/DL Total Bilirubin 0.6 MG/DL Aspartate Amino Transf 8 U/L (AST/SGOT) Alanine Aminotransferase 12 U/L (ALT/SGPT) Alkaline Phosphatase 129 U/L Total Creatine Kinase 52 U/L Troponin I 0.04 NG/ML Total Protein 7.1 GM/DL Albumin 2.3 GM/DL Lipase 113 U/L White Blood Count 18.2 TH/MM3 Red Blood Count 4.19 MIL/MM3 Hemoglobin 11.3 GM/DL Hematocrit 35.9 % Mean Corpuscular Volume 85.7 FL Mean Corpuscular Hemoglobin 27.0 PG Mean Corpuscular Hemoglobin 31.5 % Concent Red Cell Distribution Width 15.8 % Platelet Count 198 TH/MM3 Mean Platelet Volume 8.8 FL Neutrophils (%) (Auto) 89.8 % Lymphocytes (%) (Auto) 4.8 % Monocytes (%) (Auto) 4.4 % Eosinophils (%) (Auto) 0.7 % Basophils (%) (Auto) 0.3 % Neutrophils # (Auto) 16.3 TH/MM3 Lymphocytes # (Auto) 0.9 TH/MM3 Monocytes # (Auto) 0.8 TH/MM3 Eosinophils # (Auto) 0.1 TH/MM3 Basophils # (Auto) 0.0 TH/MM3 CBC Comment DIFF FINAL Differential Comment Diagnosis Primary Impression: WAYNE (acute kidney injury) Additional Impressions: UTI (urinary tract infection) Qualified Code: N39.0 - Urinary tract infection with hematuria, site unspecified Abdominal pain Qualified Code: R10.11 - Right upper quadrant abdominal pain Admitting Information Admitting Physician Requests: Admit Condition: Stable Stacia Quach Jan 11, 2017 07:16
[2017-01-11] MEDS ORDERED: SODIUM CHLORIDE 0.9% FLUSH 5 ML FLUSH IVF PRN ×2 (07:30)
[2017-01-11] MEDS ORDERED: HYDROmorphone HCL PF 1 MG/ML VIAL IVS ONE (07:30)
--- NOTE | 2017-01-11 07:54 | RADRPT ---
EXAM DATE/TIME: 01/11/2017 07:23 [facility] COMPARISON: CHEST SINGLE AP, December 14, 2016, 9:23. INDICATIONS : Lower rib cage pain. MEDICAL HISTORY : Hypercholesterolemia. Pancreatitis. Hiatal hernia. Atrial fibrilation. GERD. Renal disease. Arthr itis. SURGICAL HISTORY : Cholecystectomy. Hemorrhoidectomy. Total knee replacement, right. Sphincterotomy. ENCOUNTER: Initial ACUITY: 1 day PAIN SCORE: 7/10 LOCATION: Bilateral lower chest FINDINGS: A single view of the chest demonstrates the lungs to be symmetrically aerated without evidence of mas s, infiltrate or effusion. The cardiomediastinal contours are unremarkable. Osseous structures are intact. CONCLUSION: No acute disease. Yunier Santana MD on January 11, 2017 at 7:51 Board Certified Radiologist. This report was verified electronically.
[2017-01-11 08:23] LABS: AUTOMATED NEUTROPHIL # 16.3 TH/MM3 (1.8-7.7); BASOPHIL % 0.3 % (0.0-2.0); EOSINOPHIL # 0.1 TH/MM3 (0-0.4); EOSINOPHIL % 0.7 % (0.0-4.0); HEMATOCRIT 35.9 % (35.0-46.0); HEMO FLAGS DIFF FINAL; LYMPH % 4.8 % (9.0-44.0); LYMPHOCYTE # 0.9 TH/MM3 (1.0-4.8); MEAN CELL VOLUME 85.7 FL (80.0-100.0); MEAN CORPUSCULAR HGB CONC 31.5 % (32.0-36.0); MONO % 4.4 % (0.0-8.0); NEUT % 89.8 % (16.0-70.0); PLATELET COUNT 198 TH/MM3 (150-450); RED BLOOD COUNT 4.19 MIL/MM3 (4.00-5.30); RED CELL DISTRIBUTION WIDTH 15.8 % (11.6-17.2); WHITE BLOOD COUNT 18.2 TH/MM3 (4.0-11.0)
[2017-01-11 08:29] LABS: BACTERIA, URINE FEW /hpf; BLOOD, URINE MOD (NEG); GLUCOSE,URINE NEG (NEG); KETONE, URINE TRACE mg/dL (NEG); NITRITE,URINE NEG (NEG); PH, URINE 5.5 (5.0-8.5); SQUAMOUS EPITHELIAL CELL URINE 3 /hpf (0-5); TRANSITIONAL EPI CELLS, URINE <1 /hpf; URINE COLOR YELLOW (YELLW/STRAW)
[2017-01-11 08:30] LABS: COMMENT (UR) CULTURE INDICATED; CULTURE IF INDICATED CULTURE INDICATED
[2017-01-11 08:32] LABS: APTT (PATIENT) 38.9 SEC (24.3-30.1); INTERNATIONAL NORMALIZED RATIO 1.1 RATIO; PROTHROMBIN TIME - PATIENT 12.1 SEC (9.8-11.6)
[2017-01-11 08:44] LABS: ANION GAP 15 MEQ/L (5-15); AST (GOT) 8 U/L (15-37); BICARBONATE 20.5 MEQ/L (21.0-32.0); BLOOD UREA NITROGEN 35 MG/DL (7-18); CHLORIDE 105 MEQ/L (98-107); GLOMERULAR FILTRATION RATE 14 ML/MIN (>89); MAGNESIUM 2.1 MG/DL (1.5-2.5); POTASSIUM 3.7 MEQ/L (3.5-5.1); SODIUM (NA) 140 MEQ/L (136-145)
[2017-01-11 08:52] LABS: ALKALINE PHOSPHATASE 129 U/L (45-117); ALT (GPT) 12 U/L (10-53); TOTAL BILIRUBIN ADULT 0.6 MG/DL (0.2-1.0)
[2017-01-11 08:54] LABS: CREATINE KINASE 52 U/L (26-192)
--- NOTE | 2017-01-11 09:39 | PD ---
Physical Exam Date Seen by Provider: Jan 11, 2017 Time Seen by Provider: 08:30 Narrative Continuous patient with Stacia Quach PA-C. Patient presents with complaints of abdominal pain. Patient has a history of chronic pancreatitis and has been admitted several times for that. Patient reports pain in her abdomen and states it feels like her previous pancreatitis episodes. No reported fevers, chills. Positive nausea and vomiting. Data Data Last Documented VS Vital Signs Date Time Temp Pulse Resp B/P Pulse Ox O2 Delivery O2 Flow Rate FiO2 01/11/17 08:19 78 20 118/56 96 Room Air 01/11/17 07:12 98.8 Orders Complete Blood Count With Diff (01/11/17 07:16) Comprehensive Metabolic Panel (01/11/17 07:16) Lipase (01/11/17 07:16) Prothrombin Time / Inr (Pt) (01/11/17 07:16) Act Partial Throm Time (Ptt) (01/11/17 07:16) Urinalysis - C+S If Indicated (01/11/17 07:16) Iv Access Insert/Monitor (01/11/17 07:16) Ecg Monitoring (01/11/17 07:16) Oximetry (01/11/17 07:16) Sodium Chloride 0.9% Flush (Ns Flush) (01/11/17 07:30) Electrocardiogram (01/11/17 07:16) Chest, Single Ap (01/11/17 07:16) Ckmb (Isoenzyme) Profile (01/11/17 07:16) Magnesium (Mg) (01/11/17 07:16) Troponin I (01/11/17 07:16) Sodium Chloride 0.9% Flush (Ns Flush) (01/11/17 07:30) Hydromorphone Pf Inj (Dilaudid Pf Inj) (01/11/17 07:30) Urine Culture (01/11/17 07:50) Lactic Acid Sepsis Protocol (01/11/17 09:29) Blood Culture (01/11/17 09:29) Labs Laboratory Tests Test 01/11/17 01/11/17 07:50 08:00 Prothrombin Time 12.1 SEC Prothromb Time International 1.1 RATIO Ratio Activated Partial 38.9 SEC Thromboplast Time Urine Color YELLOW Urine Turbidity HAZY Urine pH 5.5 Urine Specific [place] 1.017 Urine Protein 100 mg/dL Urine Glucose (UA) NEG mg/dL Urine Ketones TRACE mg/dL Urine Occult Blood MOD Urine Nitrite NEG Urine Bilirubin NEG Urine Urobilinogen LESS THAN 2.0 MG/DL Urine Leukocyte Esterase LARGE Urine RBC 12 /hpf Urine WBC 152 /hpf Urine WBC Clumps FEW Urine Squamous Epithelial 3 /hpf Cells Urine Transitional Epithelial <1 /hpf Cells Urine Bacteria FEW /hpf Microscopic Urinalysis Comment CULTURE INDICATED Sodium Level 140 MEQ/L Potassium Level 3.7 MEQ/L Chloride Level 105 MEQ/L Carbon Dioxide Level 20.5 MEQ/L Anion Gap 15 MEQ/L Blood Urea Nitrogen 35 MG/DL Creatinine 3.74 MG/DL Estimat Glomerular Filtration 14 ML/MIN Rate Random Glucose 107 MG/DL Calcium Level 8.5 MG/DL Magnesium Level 2.1 MG/DL Total Bilirubin 0.6 MG/DL Aspartate Amino Transf 8 U/L (AST/SGOT) Alanine Aminotransferase 12 U/L (ALT/SGPT) Alkaline Phosphatase 129 U/L Total Creatine Kinase 52 U/L Troponin I 0.04 NG/ML Total Protein 7.1 GM/DL Albumin 2.3 GM/DL Lipase 113 U/L White Blood Count 18.2 TH/MM3 Red Blood Count 4.19 MIL/MM3 Hemoglobin 11.3 GM/DL Hematocrit 35.9 % Mean Corpuscular Volume 85.7 FL Mean Corpuscular Hemoglobin 27.0 PG Mean Corpuscular Hemoglobin 31.5 % Concent Red Cell Distribution Width 15.8 % Platelet Count 198 TH/MM3 Mean Platelet Volume 8.8 FL Neutrophils (%) (Auto) 89.8 % Lymphocytes (%) (Auto) 4.8 % Monocytes (%) (Auto) 4.4 % Eosinophils (%) (Auto) 0.7 % Basophils (%) (Auto) 0.3 % Neutrophils # (Auto) 16.3 TH/MM3 Lymphocytes # (Auto) 0.9 TH/MM3 Monocytes # (Auto) 0.8 TH/MM3 Eosinophils # (Auto) 0.1 TH/MM3 Basophils # (Auto) 0.0 TH/MM3 CBC Comment DIFF FINAL Differential Comment [facility] Medical Record Reviewed: Yes Supervised Visit with ABHAY: Yes Differential Diagnosis Gastroenteritis versus pancreatitis versus cystitis Narrative Course 81-year-old female with history of chronic pancreatitis, presents today with points of abdominal pain. Patient also reports nausea vomiting. The patient's white count is 18,000. Urinalysis shows evidence of a UTI. Patient's creatinine is also up from her baseline of the 2 to the threes. Given this, this is likely early sepsis. Lactic acid is pending at this time. Patient will be admitted to the [facility] hospitalist service. There is a call out to the physician Dr. Alexander Eddy. She's been started on antibiotics and given I V hydration. Diagnosis Primary Impression: WAYNE (acute kidney injury) Additional Impressions: UTI (urinary tract infection) Qualified Code: N39.0 - Urinary tract infection with hematuria, site unspecified Abdominal pain Qualified Code: R10.11 - Right upper quadrant abdominal pain Condition: Stable Stevenson Guerrier MD Jan 11, 2017 09:39
[2017-01-11] MEDS ORDERED: cefTRIAXone INJ 1,000 MG in SODIUM CHLORIDE 0.9% INJ 100 ML IV ONE (09:45)
[2017-01-11] MEDS ORDERED: BISACODYL 10 MG SUPP PR PRN (09:45)
[2017-01-11] MEDS: SODIUM CHLOR 0.9% 1000 ML INJ 1,000 ML IV SCH ×2 (09:45→15:01)
[2017-01-11] MEDS ORDERED: NALOXONE HCL 0.4 MG/ML AMP IV PRN (09:45)
[2017-01-11] MEDS ORDERED: MAGNESIUM HYDROXIDE SUSP 30 ML CUP PO PRN (09:45)
[2017-01-11] MEDS ORDERED: ENALAPRILAT 1.25 MG/ML VIAL IV PRN (10:00)
[2017-01-11] MEDS: 1/2 NS + KCL 20 MEQ INJ 1,000 ML IV SCH ×2 (10:48→21:40)
--- NOTE | 2017-01-11 11:01 | RADRPT ---
EXAM DATE/TIME: 01/11/2017 10:25 [facility] COMPARISON: CT ABDOMEN & PELVIS W/O CONTRAST, December 14, 2016, 7:53. INDICATIONS : Abdominal pain. Nausea and vomiting. Chronic pancreatitis. ORAL CONTRAST: No oral contrast ingested. RADIATION DOSE: 8.11 CTDIvol (mGy) MEDICAL HISTORY : Hypertension. Hernia, hiatal. Pancreatitis. Renal disease. SURGICAL HISTORY : Cholecystectomy. Sphincterotomy. ENCOUNTER: Initial ACUITY: 1 day PAIN SCALE: 3/10 LOCATION: Right lower quadrant TECHNIQUE: Volumetric scanning of the abdomen and pelvis was performed. Using automated exposure control and ad justment of the mA and/or kV according to patient size, radiation dose was kept as low as reasonably achievable to obtain optimal diagnostic quality images. FINDINGS: Minimal bibasilar parenchymal changes are noted. Patient has a biliary stent in place with a small a mount of air in the bowel duct on the left. There is some debris in the stent. Stent does extend through the head of the pancreas. There is mild induration around the pancreas. This has progressed slightly from 12/14/16. Spleen is unremarkable. Adrenal glands appear normal. Right and left kidneys are unremarkable. There may be a tiny 1 mm stone in the right kidney. There are no stones along the expected course of either ureter. Pelvic contents unremarkable. CONCLUSION: 1. Very mild induration around the pancreas, consistent with history of pancreatitis. 2. Biliary stent in place as described above. 3. I do not see an etiology for the patient's abdominal pain. Jamie Tabor MD FACR on January 11, 2017 at 10:43 Board Certified Radiologist. This report was verified electronically.
[2017-01-11] MEDS: SUCRALFATE 1 GM TAB PO SCH ×2 (13:06→16:00)
[2017-01-11] MEDS: LIPASE/PROTEASE/AMYLASE (12,000/38,000/60,000) CAP PO SCH ×2 (14:55→17:11)
--- NOTE | 2017-01-11 15:18 | HHI.HP ---
HPI Service [facility] Hospitalists Primary Care Physician Hong Peterson MD Admission Diagnosis acute kidney injury, uti, leukocytosis Chief Complaint: RUQ abdominal pain. N/V Travel History International Travel<30 Days: No Contact w/Intl Traveler <30 Da: No Traveled to Known Affected Are: No History of Present Illness Pt has had numerous previous admissions d/t recurrent pancreatis. Pt has followed closely for many years with [facility] and has also been seen at the [facility]. She previously has had a cholecystectomy and sphincterotomy. Pt was last admitted d/t recurrent pancreatitis 11/13/15-01/02/16 and then again for same symptoms 12/14/16 - 12/26/16. During that admission, pt was again treated with IVF and pain medications, but treatment was complicated by narcotic dependency. Pt typically has a reactive leukocytosis with her pancreatitis, and this has been seen on previous admissions. Pt underwent ERCP with stent placement 11/22/15. Pt had G/J tube placed on 11/28/15 , but this was removed. Pt underwent repeat ERCP (12/11/15) Pt underwent biliary stent exchange with placement of a 10 nigerian, 9 cm long plastic stent. During November 2016 hospitalization, pt's case was confounded by a prolonged noninfectious inflammatory process which did NOT respond to antibiotics. Ultimately pt was placed on IV Solu-Medrol with a good clinical response and improvement of her leukocytosis. Pt was discharged to home on a prolonged oral prednisone taper. On this occasion, pt again presented to the ER with c/o abdmianl pain at RUQ, nausea and vomiting, or poor PO intake. Pt's symptoms started 3 days prior to this admission. Pt's Creatinine increased to 3.74 today (01/11/17). Pt's last creatinine was 2.16 (12/23/16). Pt will be admitted for further evaluation and treatment. Review of Systems Constitutional: DENIES: Diaphoretic episodes, Fatigue, Fever, Weight gain, Weight loss, Chills, Dizziness, Change in appetite, Night Sweats Endocrine: DENIES: Heat/cold intolerance, Polydipsia, Polyuria, Polyphagia Eyes: DENIES: Blurred vision, Diplopia, Eye inflammation, Eye pain, Vision loss , Photosensitivity, Double Vision Ears, nose, mouth, throat: DENIES: Tinnitus, Hearing loss, Vertigo, Nasal discharge, Oral lesions, Throat pain, Hoarseness, Ear Pain, Running Nose, Epistaxis, Sinus Pain, Toothache, Odynophagia Respiratory: DENIES: Apneas, Cough, Snoring, Wheezing, Hemoptysis, Sputum production, Shortness of breath Cardiovascular: DENIES: Chest pain, Palpitations, Syncope, Dyspnea on Exertion , PND, Lower Extremity Edema, Orthopnea, Claudication Gastrointestinal: COMPLAINS OF: Abdominal pain, Nausea, Vomiting, See HPI, DENIES: Black stools, Bloody stools, BRB per rectum, Constipation, Diarrhea, GERD, Reflux, Difficulty Swallowing, Anorexia Genitourinary: DENIES: Urinary frequency, Urinary incontinence, Urgency, Hematuria, Dysuria, Nocturia Musculoskeletal: DENIES: Joint pain, Muscle aches, Stiffness, Joint Swelling, Back pain, Neck pain Integumentary: DENIES: Abnormal pigmentation, Pruritus, Rash, Nail changes, Breast masses, Breast skin changes, Nipple discharge Hematologic/lymphatic: DENIES: Bruising, Lymphadenopathy Immunologic/allergic: DENIES: Eczema, Urticaria Neurologic: DENIES: Abnormal gait, Headache, Localized weakness, Paresthesias, Seizures, Speech Problems, Tremor, Poor Balance Psychiatric: DENIES: Anxiety, Confusion, Mood changes, Depression, Hallucinations, Agitation, Suicidal Ideation, Homicidal Ideation, Delusions, History of Bipolar, History of Schizophrenia Past Family Social History Past Medical History Idiopathic recurrent pancreatitis Anxiety GERD HTN Past Surgical History Cholecystectomy Cataract surgery Hemorrhoid surgery ERCP EUS Reported Medications Reported Meds & Active Scripts Active [place] (Hydrocodone-Acetaminophen) 5-325 mg Tab 1 Tab PO Q4H PRN Zofran Odt (Ondansetron Odt) 4 Mg Tab 4 Mg SL Q8HR PRN May substitute non-ODT form. Reported Pantoprazole (Pantoprazole Sodium) 40 Mg Tab 40 Mg PO BID Creon (Amylase/Lipase/Protease) 12,000-38,000-60,000 Units Cap 1 Cap PO TIDPC Metoprolol Tartrate 25 Mg Tab 25 Mg PO BID Cartia Xt (Diltiazem ER 24 HR) 120 Mg Caper 120 Mg PO DAILY Sucralfate 1 Gm Tab 1 Gm PO TID on empty stomach Allergies: Coded Allergies: No Known Allergies (Verified , 01/11/17) Family History Denies any family history of pancreatitis. Father had some type of stomach cancer per [facility] EHR Social History - No tobacco use - NO alcohol use - NO illicit street drugs Physical Exam Vital Signs Vital Signs Date Time Temp Pulse Resp B/P Pulse Ox O2 Delivery O2 Flow Rate FiO2 01/11/17 14:56 86 20 120/60 95 Room Air 01/11/17 13:06 82 18 125/57 95 Room Air 01/11/17 11:17 97 21 01/11/17 08:19 78 20 118/56 96 Room Air 01/11/17 07:22 96 Room Air 01/11/17 07:12 98.8 86 20 124/56 97 Room Air 01/11/17 07:09 88 20 124/56 96 01/11/17 06:54 98.1 78 16 108/60 95 Room Air Physical Exam GENERAL: This is a well-nourished, well-developed patient, in no apparent distress. SKIN: No rashes, ecchymoses or lesions. Cool and dry. HEAD: Atraumatic. Normocephalic. No temporal or scalp tenderness. EYES: Pupils equal round and reactive. Extraocular motions intact. No scleral icterus. No injection or drainage. ENT: Nose without bleeding, purulent drainage or septal hematoma. Throat without erythema, tonsillar hypertrophy or exudate. Uvula midline. Airway patent. NECK: Trachea midline. No JVD or lymphadenopathy. Supple, nontender, no meningeal signs. CARDIOVASCULAR: Regular rate and rhythm without murmurs, gallops, or rubs. RESPIRATORY: Clear to auscultation. Breath sounds equal bilaterally. No wheezes , rales, or rhonchi. GASTROINTESTINAL: Abdomen soft, tender on palpation at RUQ, nondistended. No hepato-splenomegaly, or palpable masses. No guarding. MUSCULOSKELETAL: Extremities without clubbing, cyanosis, or edema. No joint tenderness, effusion, or edema noted. No calf tenderness. Negative Homans sign bilaterally. NEUROLOGICAL: Awake and alert. Cranial nerves II through XII intact. Motor and sensory grossly within normal limits. Five out of 5 muscle strength in all muscle groups. Normal speech. Laboratory Laboratory Tests Test 01/11/17 01/11/17 01/11/17 07:50 08:00 10:07 Prothrombin Time 12.1 Prothromb Time International 1.1 Ratio Activated Partial 38.9 Thromboplast Time Urine Color YELLOW Urine Turbidity HAZY Urine pH 5.5 Urine Specific [place] 1.017 Urine Protein 100 Urine Glucose (UA) NEG Urine Ketones TRACE Urine Occult Blood MOD Urine Nitrite NEG Urine Bilirubin NEG Urine Urobilinogen LESS THAN 2.0 Urine Leukocyte Esterase LARGE Urine RBC 12 Urine WBC 152 Urine WBC Clumps FEW Urine Squamous Epithelial 3 Cells Urine Transitional Epithelial <1 Cells Urine Bacteria FEW Microscopic Urinalysis Comment CULTURE INDICATED Sodium Level 140 Potassium Level 3.7 Chloride Level 105 Carbon Dioxide Level 20.5 Anion Gap 15 Blood Urea Nitrogen 35 Creatinine 3.74 Estimat Glomerular Filtration 14 Rate Random Glucose 107 Calcium Level 8.5 Magnesium Level 2.1 Total Bilirubin 0.6 Aspartate Amino Transf 8 (AST/SGOT) Alanine Aminotransferase 12 (ALT/SGPT) Alkaline Phosphatase 129 Total Creatine Kinase 52 Troponin I 0.04 Total Protein 7.1 Albumin 2.3 Lipase 113 White Blood Count 18.2 Red Blood Count 4.19 Hemoglobin 11.3 Hematocrit 35.9 Mean Corpuscular Volume 85.7 Mean Corpuscular Hemoglobin 27.0 Mean Corpuscular Hemoglobin 31.5 Concent Red Cell Distribution Width 15.8 Platelet Count 198 Mean Platelet Volume 8.8 Neutrophils (%) (Auto) 89.8 Lymphocytes (%) (Auto) 4.8 Monocytes (%) (Auto) 4.4 Eosinophils (%) (Auto) 0.7 Basophils (%) (Auto) 0.3 Neutrophils # (Auto) 16.3 Lymphocytes # (Auto) 0.9 Monocytes # (Auto) 0.8 Eosinophils # (Auto) 0.1 Basophils # (Auto) 0.0 CBC Comment DIFF FINAL Differential Comment Lactic Acid Level 1.3 Date/Time Procedure Status Source Growth 01/11/17 10:10 Aerobic Blood Culture Received Blood Peripheral Pending 01/11/17 10:10 Anaerobic Blood Culture Received Blood Peripheral Pending 01/11/17 07:50 Urine Culture Worksheet Urine Clean Catch Pending Result Diagram: 01/11/17 0800 01/11/17 0750 Imaging Last Impressions Chest X-Ray 01/11/17 0716 Signed Impressions: Service Date/Time: Wednesday, January 11, 2017 07:23 - CONCLUSION: No acute disease. Yunier Santana MD Septic Shock Reassessment Heart: Regular rate and rhythm Lungs: Clear Skin: Warm Peripheral Pulses: Bounding Right Radial Bounding Left Radial Bounding Right Popliteal Bounding Left Popliteal Bounding Right Dorsalis Pedis Bounding Left Dorsalis Pedis Bounding Right Posterior Tibial Bounding Left Posterior Tibial Capillary Refill: Brisk Assessment and Plan Problem List: (1) Chronic recurrent pancreatitis Status: Acute Plan: - NPO - IVFs - narcotics prn - creon, protonix - repeat labs in AM - consider repeat GI consult if NO improvement (2) Leukocytosis Status: Acute Plan: - Pt has pattern of leukocytosis which correlates with acute episodes of pancreatitis (3) Acute on chronic kidney disease, stage 3 Status: Chronic Plan: - IVFs - repeat labs in AM (4) HTN (hypertension) Status: Chronic Plan: - metoprolol, cardizem CD (5) Anxiety Status: Chronic Physician Certification 2 Midnight Certification Type: Admission for Inpatient Services Order for Inpatient Services The services are ordered in accordance with Medicare regulations or non- Medicare payer requirements, as applicable. In the case of services not specified as inpatient-only, they are appropriately provided as inpatient services in accordance with the 2-midnight benchmark. Estimated LOS (days): 3 3 days is the estimated time the patient will need to remain in the hospital, assuming treatment plan goals are met and no additional complications. Post-Hospital Plan: Not yet determined Problem Qualifiers (1) HTN (hypertension): Qualified Code: I10 - Essential hypertension Alexander Eddy DO Jan 11, 2017 15:18
[2017-01-11] MEDS: ONDANSETRON HCL 4 MG/2 ML VIAL IVP PRN (15:57)
[2017-01-11] MEDS: HYDROmorphone HCL PF 1 MG/ML VIAL IV PUSH PRN (16:17)
[2017-01-11] MEDS: ACETAMINOPHEN/HYDROcodone 325 MG/5 MG TAB PO PRN (18:49)
[2017-01-11] MEDS: SODIUM CHLORIDE 0.9% FLUSH 5 ML FLUSH FLUSH SCH (21:00)
[2017-01-11] MEDS: PANTOPRAZOLE SOD 40 MG DELAYED RELEASE TAB PO SCH (21:39)
[2017-01-11] MEDS: METOPROLOL TARTRATE 25 MG TAB PO SCH (21:39)
[2017-01-12] VITALS (8 sets, daily range): BP systolic 106–173; BP diastolic 51–74; PULSE 75–92; RESP 16–18; TEMP 97.5–101.6; O2SAT 95–100
[2017-01-12] MEDS: ACETAMINOPHEN/HYDROcodone 325 MG/5 MG TAB PO PRN ×2 (00:24→06:30)
[2017-01-12] MEDS: SODIUM CHLOR 0.9% 1000 ML INJ 1,000 ML IV SCH ×2 (04:48→15:45)
[2017-01-12] MEDS: cloNIDine HCL 0.2 MG TAB PO PRN (05:02)
[2017-01-12] MEDS: ONDANSETRON HCL 4 MG/2 ML VIAL IVP PRN ×2 (05:03→11:34)
[2017-01-12] MEDS: PANTOPRAZOLE SOD 40 MG DELAYED RELEASE TAB PO SCH ×2 (08:18→21:00)
[2017-01-12] MEDS: METOPROLOL TARTRATE 25 MG TAB PO SCH ×2 (08:18→21:00)
[2017-01-12] MEDS: DILTIAZEM-CD 120 MG CAP ER PO SCH (08:18)
[2017-01-12] MEDS: SUCRALFATE 1 GM TAB PO SCH ×3 (08:18→18:13)
[2017-01-12] MEDS: SODIUM CHLORIDE 0.9% FLUSH 5 ML FLUSH FLUSH SCH ×2 (08:23→21:02)
[2017-01-12] MEDS: LIPASE/PROTEASE/AMYLASE (12,000/38,000/60,000) CAP PO SCH ×3 (08:24→18:30)
[2017-01-12] MEDS: 1/2 NS + KCL 20 MEQ INJ 1,000 ML IV SCH ×2 (08:24→21:03)
[2017-01-12] MEDS: ACETAMINOPHEN 325 MG TAB PO PRN ×2 (08:25→16:06)
[2017-01-12 10:27] LABS: AUTOMATED NEUTROPHIL # 11.5 TH/MM3 (1.8-7.7); BASOPHIL % 0.4 % (0.0-2.0); EOSINOPHIL # 0.2 TH/MM3 (0-0.4); EOSINOPHIL % 1.6 % (0.0-4.0); HEMO FLAGS DIFF FINAL; LYMPH % 3.4 % (9.0-44.0); LYMPHOCYTE # 0.4 TH/MM3 (1.0-4.8); MEAN CELL VOLUME 84.9 FL (80.0-100.0); MEAN CORPUSCULAR HEMOGLOBIN 27.5 PG (27.0-34.0); MEAN CORPUSCULAR HGB CONC 32.4 % (32.0-36.0); NEUT % 89.6 % (16.0-70.0); PLATELET COUNT 177 TH/MM3 (150-450); RED BLOOD COUNT 3.53 MIL/MM3 (4.00-5.30); RED CELL DISTRIBUTION WIDTH 15.6 % (11.6-17.2); WHITE BLOOD COUNT 12.8 TH/MM3 (4.0-11.0)
[2017-01-12 10:44] LABS: BICARBONATE 19.4 MEQ/L (21.0-32.0); MAGNESIUM 1.9 MG/DL (1.5-2.5)
--- NOTE | 2017-01-12 14:34 | HHI.PR ---
Subjective Remarks Pt overall feeling better today She had a low grade fever of 100.1 today. Pt complained of not having had a BM in 3-4 days but she has not been eating much for the last few days. Objective Vitals Vital Signs Date Time Temp Pulse Resp B/P Pulse Ox O2 Delivery O2 Flow Rate FiO2 01/12/17 12:00 98.6 75 18 115/56 95 01/12/17 08:00 100.1 86 18 122/58 97 01/12/17 08:00 96 Room Air 01/12/17 07:21 96 21 01/12/17 04:00 99.0 89 16 173/74 96 01/12/17 00:00 98.9 80 18 139/64 95 01/11/17 23:49 97 21 01/11/17 20:00 98.6 82 16 110/72 96 01/11/17 20:00 Room Air 01/11/17 16:00 97.8 83 18 142/67 96 01/11/17 15:53 128/78 96 01/11/17 14:56 86 20 120/60 95 Room Air 01/11/17 01/11/17 01/12/17 14:59 22:59 06:59 Intake Total 905 ml 739 ml Balance 905 ml 739 ml Intake Oral 0 ml IV Total 905 ml 739 ml # Voids 2 # Bowel Movements 0 Result Diagram: 01/12/17 0901/12/17904 Other Results Laboratory Tests Test 01/11/17 01/11/17 01/11/17 01/12/17 07:50 08:00 10:07 09:05 Prothrombin Time 12.1 SEC Prothromb Time International 1.1 RATIO Ratio Activated Partial 38.9 SEC Thromboplast Time Urine Color YELLOW Urine Turbidity HAZY Urine pH 5.5 Urine Specific [place] 1.017 Urine Protein 100 mg/dL Urine Glucose (UA) NEG mg/dL Urine Ketones TRACE mg/dL Urine Occult Blood MOD Urine Nitrite NEG Urine Bilirubin NEG Urine Urobilinogen LESS THAN 2.0 MG/DL Urine Leukocyte Esterase LARGE Urine RBC 12 /hpf Urine WBC 152 /hpf Urine WBC Clumps FEW Urine Squamous Epithelial 3 /hpf Cells Urine Transitional Epithelial <1 /hpf Cells Urine Bacteria FEW /hpf Microscopic Urinalysis Comment CULTURE INDICATED Sodium Level 140 MEQ/L 141 MEQ/L Potassium Level 3.7 MEQ/L 4.0 MEQ/L Chloride Level 105 MEQ/L 106 MEQ/L Carbon Dioxide Level 20.5 MEQ/L 19.4 MEQ/L Anion Gap 15 MEQ/L 16 MEQ/L Blood Urea Nitrogen 35 MG/DL 36 MG/DL Creatinine 3.74 MG/DL 3.15 MG/DL Estimat Glomerular Filtration 14 ML/MIN 17 ML/MIN Rate Random Glucose 107 MG/DL 71 MG/DL Calcium Level 8.5 MG/DL 8.6 MG/DL Magnesium Level 2.1 MG/DL 1.9 MG/DL Total Bilirubin 0.6 MG/DL Aspartate Amino Transf 8 U/L (AST/SGOT) Alanine Aminotransferase 12 U/L (ALT/SGPT) Alkaline Phosphatase 129 U/L Total Creatine Kinase 52 U/L Troponin I 0.04 NG/ML Total Protein 7.1 GM/DL Albumin 2.3 GM/DL Lipase 113 U/L 128 U/L White Blood Count 18.2 TH/MM3 12.8 TH/MM3 Red Blood Count 4.19 MIL/MM3 3.53 MIL/MM3 Hemoglobin 11.3 GM/DL 9.7 GM/DL Hematocrit 35.9 % 30.0 % Mean Corpuscular Volume 85.7 FL 84.9 FL Mean Corpuscular Hemoglobin 27.0 PG 27.5 PG Mean Corpuscular Hemoglobin 31.5 % 32.4 % Concent Red Cell Distribution Width 15.8 % 15.6 % Platelet Count 198 TH/MM3 177 TH/MM3 Mean Platelet Volume 8.8 FL 9.5 FL Neutrophils (%) (Auto) 89.8 % 89.6 % Lymphocytes (%) (Auto) 4.8 % 3.4 % Monocytes (%) (Auto) 4.4 % 5.0 % Eosinophils (%) (Auto) 0.7 % 1.6 % Basophils (%) (Auto) 0.3 % 0.4 % Neutrophils # (Auto) 16.3 TH/MM3 11.5 TH/MM3 Lymphocytes # (Auto) 0.9 TH/MM3 0.4 TH/MM3 Monocytes # (Auto) 0.8 TH/MM3 0.6 TH/MM3 Eosinophils # (Auto) 0.1 TH/MM3 0.2 TH/MM3 Basophils # (Auto) 0.0 TH/MM3 0.0 TH/MM3 CBC Comment DIFF FINAL DIFF FINAL Differential Comment Lactic Acid Level 1.3 mmol/L Imaging Last Impressions Chest X-Ray 01/11/17 0716 Signed Impressions: Service Date/Time: Wednesday, January 11, 2017 07:23 - CONCLUSION: No acute disease. Yunier Santana MD Abdomen/Pelvis CT 01/11/17 0000 Signed Impressions: Service Date/Time: Wednesday, January 11, 2017 10:25 - CONCLUSION: 1. Very mild induration around the pancreas, consistent with history of pancreatitis. 2. Biliary stent in place as described above. 3. I do not see an etiology for the patient's abdominal pain. Jamie Tabor MD FACR Objective Remarks General: NAD, AAOx3 Chest: CTA Cardiac: Regular Abd: +BS, soft mildly distended, mild epigastric tenderness Ext: No edema A/P Problem List: (1) Chronic recurrent pancreatitis Status: Acute Plan: - Pt has had numerous previous admissions d/t recurrent pancreatis. - Pt has followed closely for many years with [facility] and has also been seen at the [facility]. - Pt was last admitted d/t recurrent pancreatitis 11/13/15-01/02/16 and then again for same symptoms 12/14/16-12/26/16. - Pt typically has a reactive leukocytosis with her pancreatitis, and this has been seen on previous admissions. - She previously underwent ERCP with stent placement 11/22/15. Pt had G/J tube placed on 11/28/15, but this was removed. - Most recently she underwent repeat ERCP (12/11/15) with biliary stent exchange with placement of a 10 ivorian, 9 cm long plastic stent. - NPO - IVFs - narcotics prn - Creon, Protonix - repeat labs in AM - consider repeat GI consult if NO improvement (2) Leukocytosis Status: Acute Plan: - Pt has pattern of leukocytosis which correlates with acute episodes of pancreatitis (3) Acute on chronic kidney disease, stage 3 Status: Chronic Plan: - IVFs - repeat labs in AM (4) HTN (hypertension) Status: Chronic Plan: - metoprolol, cardizem CD (5) Anxiety Status: Chronic Assessment and Plan Patient examined. Assessment and plan formulated with Guadalupe Monson PA-C. I agree with the above. Problem Qualifiers (1) HTN (hypertension): Qualified Code: I10 - Essential hypertension Guadalupe Monson Jan 12, 2017 14:34 Alexander Eddy DO Jan 17, 2017 10:42
[2017-01-12] MEDS: HYDROmorphone HCL PF 1 MG/ML VIAL IV PUSH PRN (21:01)
[2017-01-13] VITALS (7 sets, daily range): BP systolic 98–115; BP diastolic 51–66; PULSE 69–89; RESP 16–18; TEMP 97.3–103; O2SAT 94–100
[2017-01-13] MEDS: ACETAMINOPHEN 325 MG TAB PO PRN (00:33)
[2017-01-13] MEDS: ACETAMINOPHEN/HYDROcodone 325 MG/5 MG TAB PO PRN ×4 (00:33→15:44)
[2017-01-13] MEDS: SODIUM CHLOR 0.9% 1000 ML INJ 1,000 ML IV SCH ×3 (01:45→16:16)
[2017-01-13] MEDS: HYDROmorphone HCL PF 1 MG/ML VIAL IV PUSH PRN ×3 (05:26→20:50)
[2017-01-13 07:44] LABS: AUTOMATED NEUTROPHIL # 20.3 TH/MM3 (1.8-7.7); BASOPHIL % 0.2 % (0.0-2.0); EOSINOPHIL % 0.1 % (0.0-4.0); HEMATOCRIT 27.7 % (35.0-46.0); HEMO FLAGS DIFF FINAL; LYMPH % 2.4 % (9.0-44.0); LYMPHOCYTE # 0.5 TH/MM3 (1.0-4.8); MEAN CELL VOLUME 84.7 FL (80.0-100.0); MEAN CORPUSCULAR HEMOGLOBIN 26.3 PG (27.0-34.0); MEAN CORPUSCULAR HGB CONC 31.1 % (32.0-36.0); MONO % 4.3 % (0.0-8.0); PLATELET COUNT 163 TH/MM3 (150-450); RED BLOOD COUNT 3.27 MIL/MM3 (4.00-5.30); RED CELL DISTRIBUTION WIDTH 15.5 % (11.6-17.2); WHITE BLOOD COUNT 21.8 TH/MM3 (4.0-11.0)
[2017-01-13 08:23] LABS: ALKALINE PHOSPHATASE 152 U/L (45-117); ALT (GPT) 18 U/L (10-53); ANION GAP 15 MEQ/L (5-15); AST (GOT) 24 U/L (15-37); BICARBONATE 18.6 MEQ/L (21.0-32.0); BLOOD UREA NITROGEN 42 MG/DL (7-18); CHLORIDE 106 MEQ/L (98-107); GLOMERULAR FILTRATION RATE 13 ML/MIN (>89); POTASSIUM 4.7 MEQ/L (3.5-5.1); SODIUM (NA) 140 MEQ/L (136-145); TOTAL BILIRUBIN ADULT 0.6 MG/DL (0.2-1.0)
[2017-01-13] MEDS: METOPROLOL TARTRATE 25 MG TAB PO SCH ×2 (09:33→20:36)
[2017-01-13] MEDS: LIPASE/PROTEASE/AMYLASE (12,000/38,000/60,000) CAP PO SCH ×3 (09:33→17:49)
[2017-01-13] MEDS: SUCRALFATE 1 GM TAB PO SCH ×3 (09:33→17:49)
[2017-01-13] MEDS: ONDANSETRON HCL 4 MG/2 ML VIAL IVP PRN ×3 (09:34→20:37)
[2017-01-13] MEDS: DILTIAZEM-CD 120 MG CAP ER PO SCH (09:34)
[2017-01-13] MEDS: 1/2 NS + KCL 20 MEQ INJ 1,000 ML IV SCH (09:34)
[2017-01-13] MEDS: PANTOPRAZOLE SOD 40 MG DELAYED RELEASE TAB PO SCH ×2 (09:34→20:36)
[2017-01-13] MEDS: SODIUM CHLORIDE 0.9% FLUSH 5 ML FLUSH FLUSH SCH ×2 (09:34→20:37)
--- NOTE | 2017-01-13 12:21 | HHI.PR ---
Subjective Remarks Pt reports that her abd pain is slightly improved today She had a fever of 103 last night Pt denies any dysuria or hematuria. No nausea or vomiting. Objective Vitals Vital Signs Date Time Temp Pulse Resp B/P Pulse Ox O2 Delivery O2 Flow Rate FiO2 01/13/17 09:43 Room Air 01/13/17 08:00 98.1 72 16 108/56 95 01/13/17 04:00 99.0 69 18 98/54 98 01/13/17 00:00 103.0 87 18 100/66 94 01/12/17 20:01 97.5 92 18 106/51 100 01/12/17 20:00 Room Air 01/12/17 20:00 97.5 92 18 106/51 100 01/12/17 16:00 101.6 91 18 138/67 97 01/12/17 01/12/17 01/13/17 15:00 23:00 07:00 Intake Total 0 ml 0 ml Output Total 300 ml Balance 0 ml -300 ml Intake Oral 0 ml 0 ml Output Urine Total 300 ml # Voids 2 3 # Bowel Movements 0 0 0 Result Diagram: 01/13/17 0618 01/13/17 0618 Other Results Laboratory Tests Test 01/12/17 01/13/17 09:05 06:18 White Blood Count 12.8 TH/MM3 21.8 TH/MM3 Red Blood Count 3.53 MIL/MM3 3.27 MIL/MM3 Hemoglobin 9.7 GM/DL 8.6 GM/DL Hematocrit 30.0 % 27.7 % Mean Corpuscular Volume 84.9 FL 84.7 FL Mean Corpuscular Hemoglobin 27.5 PG 26.3 PG Mean Corpuscular Hemoglobin 32.4 % 31.1 % Concent Red Cell Distribution Width 15.6 % 15.5 % Platelet Count 177 TH/MM3 163 TH/MM3 Mean Platelet Volume 9.5 FL 9.0 FL Neutrophils (%) (Auto) 89.6 % 93.0 % Lymphocytes (%) (Auto) 3.4 % 2.4 % Monocytes (%) (Auto) 5.0 % 4.3 % Eosinophils (%) (Auto) 1.6 % 0.1 % Basophils (%) (Auto) 0.4 % 0.2 % Neutrophils # (Auto) 11.5 TH/MM3 20.3 TH/MM3 Lymphocytes # (Auto) 0.4 TH/MM3 0.5 TH/MM3 Monocytes # (Auto) 0.6 TH/MM3 0.9 TH/MM3 Eosinophils # (Auto) 0.2 TH/MM3 0.0 TH/MM3 Basophils # (Auto) 0.0 TH/MM3 0.0 TH/MM3 CBC Comment DIFF FINAL DIFF FINAL Differential Comment Sodium Level 141 MEQ/L 140 MEQ/L Potassium Level 4.0 MEQ/L 4.7 MEQ/L Chloride Level 106 MEQ/L 106 MEQ/L Carbon Dioxide Level 19.4 MEQ/L 18.6 MEQ/L Anion Gap 16 MEQ/L 15 MEQ/L Blood Urea Nitrogen 36 MG/DL 42 MG/DL Creatinine 3.15 MG/DL 3.89 MG/DL Estimat Glomerular Filtration 17 ML/MIN 13 ML/MIN Rate Random Glucose 71 MG/DL 101 MG/DL Calcium Level 8.6 MG/DL 8.4 MG/DL Magnesium Level 1.9 MG/DL Lipase 128 U/L 202 U/L Total Bilirubin 0.6 MG/DL Aspartate Amino Transf 24 U/L (AST/SGOT) Alanine Aminotransferase 18 U/L (ALT/SGPT) Alkaline Phosphatase 152 U/L Total Protein 5.7 GM/DL Albumin 1.7 GM/DL Imaging Last Impressions Chest X-Ray 01/11/17 0716 Signed Impressions: Service Date/Time: Wednesday, January 11, 2017 07:23 - CONCLUSION: No acute disease. Yunier Santana MD Abdomen/Pelvis CT 01/11/17 0000 Signed Impressions: Service Date/Time: Wednesday, January 11, 2017 10:25 - CONCLUSION: 1. Very mild induration around the pancreas, consistent with history of pancreatitis. 2. Biliary stent in place as described above. 3. I do not see an etiology for the patient's abdominal pain. Jamie Tabor MD FACR Objective Remarks General: NAD, AAOx3 Chest: CTA Cardiac: Regular Abd: +BS, soft mildly distended, minimal epigastric tenderness Ext: No edema A/P Problem List: (1) Chronic recurrent pancreatitis Status: Acute Plan: - Pt has had numerous previous admissions d/t recurrent pancreatis. - Pt has followed closely for many years with [facility] and has also been seen at the [facility]. - Pt was last admitted d/t recurrent pancreatitis 11/13/15-01/02/16 and then again for same symptoms 12/14/16-12/26/16. - Pt typically has a reactive leukocytosis with her pancreatitis, and this has been seen on previous admissions. - She previously underwent ERCP with stent placement 11/22/15. Pt had G/J tube placed on 11/28/15, but this was removed. - Most recently she underwent repeat ERCP (12/11/15) with biliary stent exchange with placement of a 10 german, 9 cm long plastic stent. - Pt had fever of 103 last night and WBC count increased to 21,000 today. - Repeat blood cultures today - NPO - Change IVF to NS @ 100mL/hr - narcotics prn - Creon, Protonix - repeat labs in AM - consider repeat GI consult if NO improvement (2) Leukocytosis Status: Acute Plan: - Pt has pattern of leukocytosis which correlates with acute episodes of pancreatitis - UA at admission was abnormal but urine culture indicated probable contaminants - Blood cultures (01/11) with no growth x 2 days - She did have a fever last night and WBC count increased to over 21,000 - Repeat blood cultures today (3) Acute on chronic kidney disease, stage 3 Status: Chronic Plan: - IVFs - Creatinine increased today to 3.89 - repeat labs in AM - Consult Nephrology for further evaluation. - Previous Renal US (12/17/16) --> Echogenic kidneys which can be seen in medical renal disease, bilateral renal cysts, echogenic splenic lesion likely benign and may be related to hemangioma, hypoechoic lesion on the right mid kidney may be related to a complex cyst. (4) HTN (hypertension) Status: Chronic Plan: - metoprolol, cardizem CD (5) Anxiety Status: Chronic Assessment and Plan Patient examined. Assessment and plan formulated with Guadalupe Monson PA-C. I agree with the above. Problem Qualifiers (1) HTN (hypertension): Qualified Code: I10 - Essential hypertension Guadalupe Monson Jan 13, 2017 12:21 Alexander Eddy DO Jan 17, 2017 10:42
--- NOTE | 2017-01-13 18:09 | PD.CONS ---
HPI Service Nephrology Consult Requested By Dr. Eddy Reason for Consult Acute and chronic kidney disease Primary Care Physician Hong Peterson MD History of Present Illness Patient is a 81-year-old of female with hypertensive kidney disease stage IV baseline creatinine ranging between 2.1-2.5 and she has chronic pancreatitis came in with abdominal pain nausea and vomiting and was dehydrated as well. Patient creatinine today is 3.8 the she is getting IV fluid which was changed to normal saline at 100 cc an hour. Patient states that she is passing urine although urine output the is low for her. She continued to have upper abdominal pain or white cell count is high as well. Review of Systems Constitutional: COMPLAINS OF: Fatigue Gastrointestinal: COMPLAINS OF: Abdominal pain, Nausea, Vomiting Past Family Social History Allergies: Coded Allergies: No Known Allergies (Verified , 01/11/17) Past Medical History Hypertension Recurrent pancreatitis ERCP Anemia Abdominal pain Chronic kidney disease stage IV GERD Osteoarthritis Hyperlipidemia Past Surgical History Left total knee replacement Cholecystectomy ERCP Biliary stent Sphincterotomy Reported Medications Reported Meds & Active Scripts Active [place] (Hydrocodone-Acetaminophen) 5-325 mg Tab 1 Tab PO Q4H PRN Zofran Odt (Ondansetron Odt) 4 Mg Tab 4 Mg SL Q8HR PRN May substitute non-ODT form. Reported Pantoprazole (Pantoprazole Sodium) 40 Mg Tab 40 Mg PO BID Creon (Amylase/Lipase/Protease) 12,000-38,000-60,000 Units Cap 1 Cap PO TIDPC Metoprolol Tartrate 25 Mg Tab 25 Mg PO BID Cartia Xt (Diltiazem ER 24 HR) 120 Mg Caper 120 Mg PO DAILY Sucralfate 1 Gm Tab 1 Gm PO TID on empty stomach Active Ordered Medications Current Medications Medications (Trade) Dose Ordered Sig/Kirill Route Start Time Stop Time Status Last Admin (NS Flush) 2 ml UNSCH PRN FLUSH 01/11/17 09:45 (NS Flush) 2 ml BID FLUSH 01/11/17 21:00 01/13/17 09:34 (Tylenol) 650 mg Q4H PRN PO 01/11/17 09:45 01/13/17 00:33 (Zofran Inj) 4 mg Q6H PRN IVP 01/11/17 09:45 01/13/17 15:46 (Dulcolax Supp) 10 mg DAILY PRN CA 01/11/17 09:45 (Milk Of Magnveena Liq) 30 ml Q12H PRN PO 01/11/17 09:45 01/12/17 08:18 Naloxone HCl 0.4 mg 0.4 mg UNSCH PRN IV 01/11/17 09:45 (NS 1000 ml Inj) 1,000 ml @ 100 mls/hr Q10H IV 01/11/17 09:45 01/13/17 16:16 (Dilaudid Pf Inj) 0.5 mg Q6H PRN IV PUSH 01/11/17 09:45 01/13/17 12:16 ([place] 5-325 Mg) 1 tab Q6H PRN PO 01/11/17 09:45 01/13/17 15:44 (Cardizem Cd) 120 mg DAILY PO 01/12/17 09:00 01/13/17 09:34 (Lopressor) 25 mg BID PO 01/11/17 21:00 01/13/17 09:33 (Creon 12-38-60) 1 cap TIDPC PO 01/11/17 13:30 01/13/17 17:49 (Protonix) 40 mg BID PO 01/11/17 21:00 01/13/17 09:34 (Carafate) 1 gm TIDAC PO 01/11/17 12:00 01/13/17 17:49 (Vasotec Inj) 1.25 mg Q6H PRN IV 01/11/17 10:00 (Catapres) 0.2 mg Q6H PRN PO 01/11/17 10:00 01/12/17 05:02 Family History Noncontributory Social History Denies smoking or alcohol use Physical Exam Vital Signs Vital Signs Date Time Temp Pulse Resp B/P Pulse Ox O2 Delivery O2 Flow Rate FiO2 01/13/17 16:00 99.1 83 18 103/51 96 01/13/17 12:00 100.1 89 17 115/55 99 01/13/17 10:16 100 21 01/13/17 09:43 Room Air 01/13/17 08:00 98.1 72 16 108/56 95 01/13/17 04:00 99.0 69 18 98/54 98 01/13/17 00:00 103.0 87 18 100/66 94 01/12/17 20:01 97.5 92 18 106/51 100 01/12/17 20:00 Room Air 01/12/17 20:00 97.5 92 18 106/51 100 Physical Exam GENERAL: Well-nourished, well-developed patient. SKIN: Warm and dry. HEAD: Normocephalic. EYES: No scleral icterus. No injection or drainage. NECK: Supple, trachea midline. No JVD or lymphadenopathy. CARDIOVASCULAR: Regular rate and rhythm without murmurs, gallops, or rubs. RESPIRATORY: Breath sounds equal bilaterally. No accessory muscle use. GASTROINTESTINAL: Abdomen tender, nondistended. EXTREMITIES: No cyanosis, or edema. NEUROLOGICAL: Awake, alert, and oriented x 3. Non-focal. Laboratory Laboratory Tests Test 01/13/17 06:18 White Blood Count 21.8 Red Blood Count 3.27 Hemoglobin 8.6 Hematocrit 27.7 Mean Corpuscular Volume 84.7 Mean Corpuscular Hemoglobin 26.3 Mean Corpuscular Hemoglobin 31.1 Concent Red Cell Distribution Width 15.5 Platelet Count 163 Mean Platelet Volume 9.0 Neutrophils (%) (Auto) 93.0 Lymphocytes (%) (Auto) 2.4 Monocytes (%) (Auto) 4.3 Eosinophils (%) (Auto) 0.1 Basophils (%) (Auto) 0.2 Neutrophils # (Auto) 20.3 Lymphocytes # (Auto) 0.5 Monocytes # (Auto) 0.9 Eosinophils # (Auto) 0.0 Basophils # (Auto) 0.0 CBC Comment DIFF FINAL Differential Comment Sodium Level 140 Potassium Level 4.7 Chloride Level 106 Carbon Dioxide Level 18.6 Anion Gap 15 Blood Urea Nitrogen 42 Creatinine 3.89 Estimat Glomerular Filtration 13 Rate Random Glucose 101 Calcium Level 8.4 Total Bilirubin 0.6 Aspartate Amino Transf 24 (AST/SGOT) Alanine Aminotransferase 18 (ALT/SGPT) Alkaline Phosphatase 152 Total Protein 5.7 Albumin 1.7 Lipase 202 Date/Time Procedure Status Source Growth 01/13/17 13:08 Aerobic Blood Culture Received Blood Peripheral Pending 01/13/17 13:08 Anaerobic Blood Culture Received Blood Peripheral Pending 01/11/17 10:10 Aerobic Blood Culture - Preliminary Resulted Blood Peripheral NO GROWTH IN 2 DAYS 01/11/17 10:10 Anaerobic Blood Culture - Preliminary Resulted Blood Peripheral NO GROWTH IN 2 DAYS 01/11/17 07:50 Urine Culture - Final Complete Urine Clean Catch 50-100,000 CFU/ML MIXED DINORAH... Result Diagram: 01/13/1718 01/13/1718 Imaging Last Impressions Chest X-Ray 01/11/17 0716 Signed Impressions: Service Date/Time: Wednesday, January 11, 2017 07:23 - CONCLUSION: No acute disease. Yunier Santana MD Abdomen/Pelvis CT 01/11/17 0000 Signed Impressions: Service Date/Time: Wednesday, January 11, 2017 10:25 - CONCLUSION: 1. Very mild induration around the pancreas, consistent with history of pancreatitis. 2. Biliary stent in place as described above. 3. I do not see an etiology for the patient's abdominal pain. Jamie Tabor MD FACR Assessment and Plan Problem List: (1) Acute renal insufficiency Plan: Patient is dehydrated and creatinine is higher than normal I will increase IV fluid normal saline 125 cc an hour follow BMP in the morning continued to monitor her renal functions closely She has nausea and vomiting and unable to keep food for the past several days (2) CKD (chronic kidney disease) stage 4, GFR 15-29 ml/min Plan: Will monitor kidney situation (3) Chronic recurrent pancreatitis Plan: Nothing by mouth and keep her hydrated (4) Leukocytosis Plan: She may have underlying infection and although pancreatitis can give you high white blood cell count urine cultures so so far has not grown any specific organism (5) Anemia Plan: Continue to monitor and hydrate her Arnaldo Melara MD Jan 13, 2017 18:09
[2017-01-14 00:05] VITALS: BP 106/68; PULSE 79; RESP 18; TEMP 100.6; O2SAT 100
[2017-01-14] MEDS: ACETAMINOPHEN 325 MG TAB PO PRN (01:00)
[2017-01-14] MEDS: ONDANSETRON HCL 4 MG/2 ML VIAL IVP PRN ×3 (02:37→21:20)
[2017-01-14] MEDS: HYDROmorphone HCL PF 1 MG/ML VIAL IV PUSH PRN ×3 (02:38→21:22)
[2017-01-14 04:55] VITALS: BP 104/53; PULSE 75; RESP 20; TEMP 98.3; O2SAT 97
[2017-01-14] MEDS: SODIUM CHLOR 0.9% 1000 ML INJ 1,000 ML IV SCH ×3 (05:49→21:25)
[2017-01-14] MEDS ORDERED: ONDANSETRON HCL 4 MG/2 ML VIAL IV PUSH PRN (07:00)
[2017-01-14] MEDS ORDERED: HYDROmorphone HCL PF 1 MG/ML VIAL IV PRN (07:00)
[2017-01-14 08:00] VITALS: BP 116/66; PULSE 68; RESP 16; TEMP 98.3; O2SAT 99
[2017-01-14 08:07] LABS: AUTOMATED NEUTROPHIL # 20.6 TH/MM3 (1.8-7.7); BASOPHIL # 0.1 TH/MM3 (0-0.2); BASOPHIL % 0.3 % (0.0-2.0); EOSINOPHIL # 0.2 TH/MM3 (0-0.4); EOSINOPHIL % 0.8 % (0.0-4.0); HEMATOCRIT 27.4 % (35.0-46.0); HEMO FLAGS DIFF FINAL; LYMPH % 4.3 % (9.0-44.0); MEAN CORPUSCULAR HEMOGLOBIN 27.4 PG (27.0-34.0); MEAN CORPUSCULAR HGB CONC 32.6 % (32.0-36.0); MONO % 3.6 % (0.0-8.0); PLATELET COUNT 192 TH/MM3 (150-450); RED BLOOD COUNT 3.26 MIL/MM3 (4.00-5.30); RED CELL DISTRIBUTION WIDTH 15.8 % (11.6-17.2); WHITE BLOOD COUNT 22.6 TH/MM3 (4.0-11.0)
[2017-01-14 08:29] LABS: BICARBONATE 18.3 MEQ/L (21.0-32.0); MAGNESIUM 1.5 MG/DL (1.5-2.5); POTASSIUM 4.4 MEQ/L (3.5-5.1)
[2017-01-14] MEDS: METOPROLOL TARTRATE 25 MG TAB PO SCH ×2 (09:08→21:24)
[2017-01-14] MEDS: SODIUM CHLORIDE 0.9% FLUSH 5 ML FLUSH FLUSH SCH ×2 (09:08→21:24)
[2017-01-14] MEDS: LIPASE/PROTEASE/AMYLASE (12,000/38,000/60,000) CAP PO SCH ×3 (09:08→17:21)
[2017-01-14] MEDS: SUCRALFATE 1 GM TAB PO SCH ×3 (09:08→14:32)
[2017-01-14] MEDS: PANTOPRAZOLE SOD 40 MG DELAYED RELEASE TAB PO SCH ×2 (09:08→21:23)
[2017-01-14] MEDS: DILTIAZEM-CD 120 MG CAP ER PO SCH (09:08)
[2017-01-14] MEDS: ACETAMINOPHEN/HYDROcodone 325 MG/5 MG TAB PO PRN ×2 (09:11→15:38)
--- NOTE | 2017-01-14 10:18 | HHI.NPPN ---
Objective Data Data 01/13/17 01/14/17 19:00 07:00 Intake Total 422 ml 2258 ml Balance 422 ml 2258 ml Intake Oral 0 ml 620 ml IV Total 422 ml 1638 ml # Voids 1 4 # Bowel Movements 0 Vital Signs Date Time Temp Pulse Resp B/P Pulse Ox O2 Delivery O2 Flow Rate FiO2 01/14/17 09:15 Room Air 01/14/17 08:00 98.3 68 16 116/66 99 01/14/17 04:55 98.3 75 20 104/53 97 01/14/17 00:05 100.6 79 18 106/68 100 01/13/17 23:30 Room Air 01/13/17 19:18 97.3 77 18 104/58 99 01/13/17 19:18 Room Air 01/13/17 16:00 99.1 83 18 103/51 96 01/13/17 12:00 100.1 89 17 115/55 99 -: 01/14/17 0646 01/14/17 0646 Microbiology 01/13/17 Aerobic Blood Culture, Received Pending 01/13/17 Anaerobic Blood Culture, Received Pending 01/13/17 Aerobic Blood Culture, Received Pending 01/13/17 Anaerobic Blood Culture, Received Pending Assessment/Plan Problem List: (1) Acute renal insufficiency Plan: Patient is dehydrated IV fluid normal saline 125 cc an hour follow BMP in the morning continued to monitor her renal functions closely high wbc likely sepsis, ?biliary (2) CKD (chronic kidney disease) stage 4, GFR 15-29 ml/min Plan: Will monitor kidney situation (3) Chronic recurrent pancreatitis Plan: Nothing by mouth and keep her hydrated (4) Leukocytosis Plan: She may have underlying infection and although pancreatitis can give you high white blood cell count urine cultures so so far has not grown any specific organism (5) Anemia Plan: Continue to monitor and hydrate her Arnaldo Melara MD Jan 14, 2017 10:18
[2017-01-14 12:00] VITALS: BP 111/57; PULSE 73; RESP 16; TEMP 97.7; O2SAT 100
--- NOTE | 2017-01-14 15:02 | HHI.PR ---
Subjective Remarks Pt reports that she is still having abd pain and nausea with dry heaves Some cough with phlegm production No dysuria No BM but +Flatus Pts last fever was around midnight last night, 100.6 degrees. Objective Vitals Vital Signs Date Time Temp Pulse Resp B/P Pulse Ox O2 Delivery O2 Flow Rate FiO2 01/14/17 12:00 97.7 73 16 111/57 100 01/14/17 09:15 Room Air 01/14/17 08:00 98.3 68 16 116/66 99 01/14/17 04:55 98.3 75 20 104/53 97 01/14/17 00:05 100.6 79 18 106/68 100 01/13/17 23:30 Room Air 01/13/17 19:18 97.3 77 18 104/58 99 01/13/17 19:18 Room Air 01/13/17 16:00 99.1 83 18 103/51 96 01/13/17 01/13/17 01/14/17 15:00 23:00 07:00 Intake Total 422 ml 1325 ml 933 ml Balance 422 ml 1325 ml 933 ml Intake Oral 0 ml 620 ml 0 ml IV Total 422 ml 705 ml 933 ml # Voids 1 3 1 # Bowel Movements 0 0 Result Diagram: 01/14/17 0646 01/14/17 0646 Other Results Laboratory Tests Test 01/13/17 01/14/17 06:18 06:46 White Blood Count 21.8 TH/MM3 22.6 TH/MM3 Red Blood Count 3.27 MIL/MM3 3.26 MIL/MM3 Hemoglobin 8.6 GM/DL 8.9 GM/DL Hematocrit 27.7 % 27.4 % Mean Corpuscular Volume 84.7 FL 84.0 FL Mean Corpuscular Hemoglobin 26.3 PG 27.4 PG Mean Corpuscular Hemoglobin 31.1 % 32.6 % Concent Red Cell Distribution Width 15.5 % 15.8 % Platelet Count 163 TH/MM3 192 TH/MM3 Mean Platelet Volume 9.0 FL 8.8 FL Neutrophils (%) (Auto) 93.0 % 91.0 % Lymphocytes (%) (Auto) 2.4 % 4.3 % Monocytes (%) (Auto) 4.3 % 3.6 % Eosinophils (%) (Auto) 0.1 % 0.8 % Basophils (%) (Auto) 0.2 % 0.3 % Neutrophils # (Auto) 20.3 TH/MM3 20.6 TH/MM3 Lymphocytes # (Auto) 0.5 TH/MM3 1.0 TH/MM3 Monocytes # (Auto) 0.9 TH/MM3 0.8 TH/MM3 Eosinophils # (Auto) 0.0 TH/MM3 0.2 TH/MM3 Basophils # (Auto) 0.0 TH/MM3 0.1 TH/MM3 CBC Comment DIFF FINAL DIFF FINAL Differential Comment Sodium Level 140 MEQ/L 143 MEQ/L Potassium Level 4.7 MEQ/L 4.4 MEQ/L Chloride Level 106 MEQ/L 111 MEQ/L Carbon Dioxide Level 18.6 MEQ/L 18.3 MEQ/L Anion Gap 15 MEQ/L 14 MEQ/L Blood Urea Nitrogen 42 MG/DL 47 MG/DL Creatinine 3.89 MG/DL 3.88 MG/DL Estimat Glomerular Filtration 13 ML/MIN 14 ML/MIN Rate Random Glucose 101 MG/DL 67 MG/DL Calcium Level 8.4 MG/DL 8.2 MG/DL Total Bilirubin 0.6 MG/DL Aspartate Amino Transf 24 U/L (AST/SGOT) Alanine Aminotransferase 18 U/L (ALT/SGPT) Alkaline Phosphatase 152 U/L Total Protein 5.7 GM/DL Albumin 1.7 GM/DL Lipase 202 U/L 240 U/L Magnesium Level 1.5 MG/DL Imaging Last Impressions Chest X-Ray 01/11/17 0716 Signed Impressions: Service Date/Time: Wednesday, January 11, 2017 07:23 - CONCLUSION: No acute disease. Yunier Santana MD Abdomen/Pelvis CT 01/11/17 0000 Signed Impressions: Service Date/Time: Wednesday, January 11, 2017 10:25 - CONCLUSION: 1. Very mild induration around the pancreas, consistent with history of pancreatitis. 2. Biliary stent in place as described above. 3. I do not see an etiology for the patient's abdominal pain. Jamie Tabor MD FACR Objective Remarks General: NAD, AAOx3 Chest: CTA Cardiac: Regular Abd: +BS, soft mildly distended, mild LUQ tenderness Ext: No edema A/P Problem List: (1) Chronic recurrent pancreatitis Status: Acute Plan: - Pt has had numerous previous admissions d/t recurrent pancreatis. - Pt has followed closely for many years with [facility] and has also been seen at the [facility]. - Pt was last admitted d/t recurrent pancreatitis 11/13/15-01/02/16 and then again for same symptoms 12/14/16-12/26/16. - Pt typically has a reactive leukocytosis with her pancreatitis, and this has been seen on previous admissions. - She previously underwent ERCP with stent placement 11/22/15. Pt had G/J tube placed on 11/28/15, but this was removed. - Most recently she underwent repeat ERCP (12/11/15) with biliary stent exchange with placement of a 10 [place], 9 cm long plastic stent. - Pt had fever of 103 on 01/13 and WBC count increased. Labs today with 22.6 today. - Repeat blood cultures (01/13) with NGTD - IVF to NS @ 125mL/hr - narcotics prn - Creon, Protonix - repeat labs in AM - Consult GI (2) Leukocytosis Status: Acute Plan: - Pt has pattern of leukocytosis which correlates with acute episodes of pancreatitis - UA at admission was abnormal but urine culture indicated probable contaminants - Blood cultures (01/11) with no growth x 3 days - She has been having fever with Tmax 103 on 01/13 and WBC count increased to over 22,000 - Repeat blood cultures (01/13) with no growth x 1 day - Check CXR (3) Acute on chronic kidney disease, stage 3 Status: Chronic Plan: - IVFs - Creatinine today to 3.88 - repeat labs in AM - Appreciate Nephrology consultation for further evaluation. Feel that this is likely related to dehydration. - Previous Renal US (12/17/16) --> Echogenic kidneys which can be seen in medical renal disease, bilateral renal cysts, echogenic splenic lesion likely benign and may be related to hemangioma, hypoechoic lesion on the right mid kidney may be related to a complex cyst. (4) HTN (hypertension) Status: Chronic Plan: - metoprolol, cardizem CD (5) Anxiety Status: Chronic Assessment and Plan Patient examined. Assessment and plan formulated with Guadalupe Monson PA-C. I agree with the above. Problem Qualifiers (1) HTN (hypertension): Qualified Code: I10 - Essential hypertension Guadalupe Monson Jan 14, 2017 15:02 Alexander Eddy DO Jan 17, 2017 10:42
[2017-01-14 16:00] VITALS: BP 121/58; PULSE 83; RESP 16; TEMP 98.5; O2SAT 99
--- NOTE | 2017-01-14 16:34 | PD.CONS ---
HPI History of Present Illness This is a 81 year old female with a hx of idiopathic recurrent pancreatitis, who came to the ER for further evaluation of persistent nausea/vomiting and abdominal pain. She has had multiple hospitalizations for her these symptoms and has had She has had extensive workup for her recurrent pancreatitis with MRCP, ERCP with sphincterotomy for suspected sphincter dysfunction vs. microlithiasis, Ig4 level, EUS, Triglycerides, and tertiary evaluation. She had a prolonged hospitalization in November/December of last year for her pancreatitis and was evaluated with ERCP with stent placement (11/22/15). Afterwards, she continued to have fevers and blood cultures revealed klebsiella pneumonia and therefore when underwent another ERCP with stent exchange on (12/11) for possible biliary sepsis. Outpatient records show that she then had an EGD with biopsy, GJ tube repositioning, ERCP with stent removal, biliary dilation with CRE balloon, balloon extraction, and wall stent, EUS (02/12/16)---- --> unremarkable EUS of the pancrease, a stent was noted in the CBD, but otherwise was normla, prior sphincterotomy but otherwise normal, distal cbd stricture, smooth benign, this was dilated with CRE balloon 10mm post dil still significant narrowing and as such a full cover 10 upper sorbian 6 cm wall stent was placed, positioning satisfactory, prior to stent placement a 15 mm balloon was used to clear the bile duct and no stones were noted, intrahepatic biliary tree normal, not dilated, normal esophagus, hiatal hernia, large antral ulcer, clean based, this was biopsied. Pathology of antral ulcer with predominantly necroinflammatory exudate consistent with ulceration, with rare detached fragments of benign gastric mucosa. She also had G/J tube placement during a prior hospitalization which has subsequently been removed. She was evaluated for anemia with EGD/Colonoscopy (10/04/15) and this revealed an ulcer at the GE junction, thick gastric fold at pre-pyloric area, mild gastritis, duodenal inflammation in the bulb and second portion of the duodenum, small polyp in the ascending colon, and moderate internal hemorrhoids. Pathology revealed gastric antral mucosal biopsies with mild chronic gastritis exhibiting histopathologic features consistent with chemical gastropathy as may be seen with bile reflux, nonsteroidal anti-inflammatory drugs or other drug induced disease negative for intestinal metaplasia and dysplasia, gricelda stain negative for helicobacter, gastroesophageal mucosal biopsy with inflammatory changes consistent with reflux negative for intestinal metaplasia and dysplasia, colonic mucosa with adenomatous polyp. She was then seen by our service in November of this year for recurrent pancreatitis. During this hospitalization, she was evaluated with EGD (12/16/16)---> small hiatal hernia, antral nodule. Pathology reactive/ chemical gastropathy. During that hospitalization, she was having difficulty tolerating po and it was recommended that she consider G/J tube placement again. However, she wanted to hold off on having this placed at that time. She was then discharged on 12/26/16. She reports that since her discharge, she has remained on a full liquid diet. She did good for about a week, but then started having more abdominal pain with nausea/vomiting. She then returned to the hospital on 01/11/17 for worsening of symptoms. She complains of a constant dull ache in her RUQ, with no radiation. She has associated nausea/vomiting with bilious materia. This is aggravated by any po intake, but she reports that she has it when she does not eat as well. She reports that since her discharge , she has had intermittent fever/chills, but that these have improved. She denies any diarrhea, melena, or hematochezia. On admission, she was noted to have leukocytosis with a WBC of 18.[address] scan abdomen and pelvis ()-----> 1. Very mild induration around the pancreas, consistent with history of pancreatitis. 2. Biliary stent in place as described above. 3. I do not see an etiology for the patient's abdominal pain. She was started on IVF and is currently on clear liquid diet. Pt reports that she would like to discuss possible G/J tube placement again with her daughter before making a decision. (Edwina Dodge) PFSH Past Medical History Idiopathic recurrent pancreatitis Anxiety GERD HTN Ulcer at GE junction Gastritis, Duodenitis Adenomatous colon polyp Past Surgical History Cholecystectomy Cataract surgery Hemorrhoid surgery ERCP EUS EGD/Colonoscopy (Edwina Dodge) Coded Allergies: No Known Allergies (Verified , 01/11/17) Medications Allergies Coded Allergies Type Severity Reaction Last Updated Verified No Known Allergies 01/11/17 Yes Active Scripts Medications Dose Route/Sig Days Date Category Dose Instructions [place] (Hydrocodone-Acetaminophen) 5-325 mg Tab 1 Tab PO Q4H PRN 12/26/16 Rx Zofran Odt (Ondansetron Odt) 4 Mg Tab 4 Mg SL Q8HR PRN 12/11/16 Rx May substitute non-ODT form. Pantoprazole (Pantoprazole Sodium) 40 Mg Tab 40 Mg PO BID 12/11/16 Reported Creon (Amylase/Lipase/Protease) 12,000-38,000-60,000 Units Cap 1 Cap PO TIDPC 12/11/16 Reported Metoprolol Tartrate 25 Mg Tab 25 Mg PO BID 12/11/16 Reported Cartia Xt (Diltiazem ER 24 HR) 120 Mg Caper 120 Mg PO DAILY 12/11/16 Reported Sucralfate 1 Gm Tab 1 Gm PO TID 12/11/16 Reported on empty stomach Family History Denies any family history of pancreatitis. States father had some type of "chest cancer." Social History Denies tobacco, etoh use. (Edwina Dodge) Review of Systems Constitutional: COMPLAINS OF: Fatigue, Fever, Chills, DENIES: Weight loss Respiratory: DENIES: Cough Cardiovascular: DENIES: Chest pain Gastrointestinal: COMPLAINS OF: Abdominal pain, Nausea, Vomiting, Anorexia, Swelling of Abdomen, DENIES: Black stools, Bloody stools, Constipation, Diarrhea, Heartburn Musculoskeletal: DENIES: Back pain Integumentary: DENIES: Abnormal pigmentation, Rash Hematologic/lymphatic: DENIES: Bruising Neurologic: DENIES: Headache Psychiatric: DENIES: Confusion (Edwina Ddoge) GI Exam Vitals I&O Vital Signs Date Time Temp Pulse Resp B/P Pulse Ox O2 Delivery O2 Flow Rate FiO2 01/14/17 12:00 97.7 73 16 111/57 100 01/14/17 09:15 Room Air 01/14/17 08:00 98.3 68 16 116/66 99 01/14/17 04:55 98.3 75 20 104/53 97 01/14/17 00:05 100.6 79 18 106/68 100 01/13/17 23:30 Room Air 01/13/17 19:18 97.3 77 18 104/58 99 01/13/17 19:18 Room Air I/O 01/13/17 01/13/17 01/13/17 01/14/17 01/14/17 01/14/17 07:00 15:00 23:00 07:00 15:00 23:00 Intake Total 0 ml 422 ml 1325 ml 933 ml 946 ml Output Total 300 ml Balance -300 ml 422 ml 1325 ml 933 ml 946 ml Intake Oral 0 ml 0 ml 620 ml 0 ml 0 ml IV Total 422 ml 705 ml 933 ml 946 ml Output Urine Total 300 ml # Voids 1 3 1 1 # Bowel Movements 0 0 0 1 Imaging Last Impressions Chest X-Ray 01/11/17 0716 Signed Impressions: Service Date/Time: Wednesday, January 11, 2017 07:23 - CONCLUSION: No acute disease. Yunier Santana MD Abdomen/Pelvis CT 01/11/17 0000 Signed Impressions: Service Date/Time: Wednesday, January 11, 2017 10:25 - CONCLUSION: 1. Very mild induration around the pancreas, consistent with history of pancreatitis. 2. Biliary stent in place as described above. 3. I do not see an etiology for the patient's abdominal pain. Jamie Tabor MD FACR Laboratory Test 01/14/17 06:46 White Blood Count 22.6 TH/MM3 Red Blood Count 3.26 MIL/MM3 Hemoglobin 8.9 GM/DL Hematocrit 27.4 % Mean Corpuscular Volume 84.0 FL Mean Corpuscular Hemoglobin 27.4 PG Mean Corpuscular Hemoglobin 32.6 % Concent Red Cell Distribution Width 15.8 % Platelet Count 192 TH/MM3 Mean Platelet Volume 8.8 FL Neutrophils (%) (Auto) 91.0 % Lymphocytes (%) (Auto) 4.3 % Monocytes (%) (Auto) 3.6 % Eosinophils (%) (Auto) 0.8 % Basophils (%) (Auto) 0.3 % Neutrophils # (Auto) 20.6 TH/MM3 Lymphocytes # (Auto) 1.0 TH/MM3 Monocytes # (Auto) 0.8 TH/MM3 Eosinophils # (Auto) 0.2 TH/MM3 Basophils # (Auto) 0.1 TH/MM3 CBC Comment DIFF FINAL Differential Comment Sodium Level 143 MEQ/L Potassium Level 4.4 MEQ/L Chloride Level 111 MEQ/L Carbon Dioxide Level 18.3 MEQ/L Anion Gap 14 MEQ/L Blood Urea Nitrogen 47 MG/DL Creatinine 3.88 MG/DL Estimat Glomerular Filtration 14 ML/MIN Rate Random Glucose 67 MG/DL Calcium Level 8.2 MG/DL Magnesium Level 1.5 MG/DL Lipase 240 U/L Date/Time Procedure Status Source Growth 01/13/17 13:08 Aerobic Blood Culture - Preliminary Resulted Blood Peripheral NO GROWTH IN 1 DAY 01/13/17 13:08 Anaerobic Blood Culture - Preliminary Resulted Blood Peripheral NO GROWTH IN 1 DAY 01/11/17 07:50 Urine Culture - Final Complete Urine Clean Catch 50-100,000 CFU/ML MIXED EV... Physical Examination HEENT: Normocephalic; atraumatic; no jaundice. Throat is clear. NECK: Neck is supple, no JVD, no lymphadenopathy. CHEST: CTA CARDIAC: RRR ABDOMEN: Soft, nondistended, RUQ tenderness; no hepatosplenomegaly; bowel sounds are present in all four quadrants. EXTREMITIES: No clubbing, cyanosis, or edema. SKIN: Normal; no rash; no jaundice. [employer]GER: No focal deficits; alert and oriented times three. (Edwina Dodge) Assessment and Plan Plan ASSESSMENT: - Recurrent idiopathic pancreatitis. She has had extensive workup for this in past with MRCP, ERCP with sphincterotomy for suspected sphincter dysfunction vs. microlithiasis, Ig4 level, EUS, Triglycerides, and tertiary evaluation. She had EGD with biopsy, GJ tube repositioning, ERCP with stent removal, biliary dilation with CRE balloon, balloon extraction, and wall stent, EUS (02/12/16)------> unremarkable EUS of the pancrease, a stent was noted in the CBD, but otherwise was normal, prior sphincterotomy but otherwise normal, distal cbd stricture, smooth benign, this was dilated with CRE balloon 10mm post dil still significant narrowing and as such a full cover 10 upper sorbian 6 cm wall stent was placed, positioning satisfactory, prior to stent placement a 15 mm balloon was used to clear the bile duct and no stones were noted, intrahepatic biliary tree normal, not dilated, normal esophagus, hiatal hernia, large antral ulcer, clean based, this was biopsied. Pathology of antral ulcer with predominantly necroinflammatory exudate consistent with ulceration, with rare detached fragments of benign gastric mucosa. Her symptoms improved at that time with steroids and her G/J tube was removed. CT scan abdomen and pelvis (01/11/17)-----> 1. Very mild induration around the pancreas, consistent with history of pancreatitis. 2. Biliary stent in place as described above. 3. I do not see an etiology for the patient's abdominal pain. Worsening leukocytosis, WBC 22.6. Lipase trending down, 263 today, but continues to have constant abdominal pain, and worsening leukocytosis. Not tolerating diet. Pt reports that she would like to discuss possible G/J tube placement again with her daughter before making a decision. IVF, PPI. Creon. Clear liquids. - Leukocytosis. Blood cx no growth 1 day, 3 days. Urine cx with 50-100,000 CFU/ mL mixed ev. - WAYNE. 2.16. - Anemia. 8.9/27.4. EGD (12/16/16)---> small hiatal hernia, antral nodule. Pathology reactive/chemical gastropathy. Prior to this she had EGD/ Colonoscopy (10/04/15) and this revealed an ulcer at the GE junction, thick gastric fold at pre-pyloric area, mild gastritis, duodenal inflammation in the bulb and second portion of the duodenum, small polyp in the ascending colon, and moderate internal hemorrhoids. Pathology revealed gastric antral mucosal biopsies with mild chronic gastritis exhibiting histopathologic features consistent with chemical gastropathy as may be seen with bile reflux, nonsteroidal anti-inflammatory drugs or other drug induced disease negative for intestinal metaplasia and dysplasia, gricelda stain negative for helicobacter, gastroesophageal mucosal biopsy with inflammatory changes consistent with reflux negative for intestinal metaplasia and dysplasia, colonic mucosa with adenomatous polyp. PLAN: - Clear liquids - Cont. PPI - Cont. Creon - Cont. IVF - Cont. Zofran prn - Pain management per primary - Monitor cbc, bmp - Supportive care - ? Need for G/J tube placement, has not been able to advance diet past clear liquids since November- Pt would like to hold off for now and speak to her daughter about this prior to making a decision - Pt seen and examined by Dr. Ortega and myself and this note is written on his behalf (Edwina Dodge) Physician Comments Patient seen and examined Agree with above Continue with current supportive care Monitor labs Continue with pain control Consider GJ tube placement for nutrition (Gregg Ortega MD) Edwina Dodge Jan 14, 2017 16:34 Gregg Ortega MD Jan 14, 2017 19:34
--- NOTE | 2017-01-14 16:43 | RADRPT ---
EXAM DATE/TIME: 01/14/2017 15:55 [facility] COMPARISON: CHEST SINGLE AP, January 11, 2017, 7:23. INDICATIONS : Fever. MEDICAL HISTORY : Hypertension. SURGICAL HISTORY : None. ENCOUNTER: Initial ACUITY: 3 days PAIN SCORE: Non-responsive. LOCATION: Bilateral chest FINDINGS: A single view of the chest demonstrates the lungs to be symmetrically aerated without evidence of mas s, infiltrate or effusion. The cardiomediastinal contours are unremarkable. Osseous structures are intact. CONCLUSION: Normal examination. Sanford Avina MD on January 14, 2017 at 16:42 Board Certified Radiologist. This report was verified electronically.
[2017-01-14 20:00] VITALS: BP 114/75; PULSE 91; RESP 20; TEMP 98.8; O2SAT 97
[2017-01-15] VITALS: BP 110/68; PULSE 83; RESP 20; TEMP 99.9; O2SAT 95
[2017-01-15] MEDS: HYDROmorphone HCL PF 1 MG/ML VIAL IV PUSH PRN ×3 (03:42→15:55)
[2017-01-15] MEDS: SODIUM CHLORIDE 0.9% FLUSH 5 ML FLUSH FLUSH PRN (03:42)
[2017-01-15] MEDS: SODIUM CHLOR 0.9% 1000 ML INJ 1,000 ML IV SCH ×3 (03:44→22:16)
[2017-01-15 04:00] VITALS: BP 122/59; PULSE 78; RESP 20; TEMP 98.9; O2SAT 100
[2017-01-15] MEDS: ONDANSETRON HCL 4 MG/2 ML VIAL IVP PRN ×3 (06:04→18:27)
[2017-01-15 07:54] LABS: AUTOMATED NEUTROPHIL # 19.7 TH/MM3 (1.8-7.7); BASOPHIL % 0.2 % (0.0-2.0); EOSINOPHIL # 0.1 TH/MM3 (0-0.4); EOSINOPHIL % 0.5 % (0.0-4.0); HEMATOCRIT 29.1 % (35.0-46.0); HEMO FLAGS DIFF FINAL; LYMPH % 4.1 % (9.0-44.0); LYMPHOCYTE # 0.9 TH/MM3 (1.0-4.8); MEAN CELL VOLUME 84.1 FL (80.0-100.0); MEAN CORPUSCULAR HGB CONC 32.1 % (32.0-36.0); MONO % 3.9 % (0.0-8.0); NEUT % 91.3 % (16.0-70.0); PLATELET COUNT 232 TH/MM3 (150-450); RED BLOOD COUNT 3.46 MIL/MM3 (4.00-5.30); RED CELL DISTRIBUTION WIDTH 16.1 % (11.6-17.2); WHITE BLOOD COUNT 21.5 TH/MM3 (4.0-11.0)
[2017-01-15 08:00] VITALS: BP 138/66; PULSE 71; RESP 18; TEMP 98.3; O2SAT 98
[2017-01-15 08:25] LABS: ANION GAP 12 MEQ/L (5-15); AST (GOT) 23 U/L (15-37); BICARBONATE 17.9 MEQ/L (21.0-32.0); BLOOD UREA NITROGEN 50 MG/DL (7-18); CHLORIDE 114 MEQ/L (98-107); GLOMERULAR FILTRATION RATE 14 ML/MIN (>89); POTASSIUM 4.6 MEQ/L (3.5-5.1); SODIUM (NA) 144 MEQ/L (136-145)
[2017-01-15 08:29] LABS: ALKALINE PHOSPHATASE 193 U/L (45-117); ALT (GPT) 25 U/L (10-53); TOTAL BILIRUBIN ADULT 0.3 MG/DL (0.2-1.0)
[2017-01-15] MEDS: LIPASE/PROTEASE/AMYLASE (12,000/38,000/60,000) CAP PO SCH ×3 (09:44→18:27)
[2017-01-15] MEDS: PANTOPRAZOLE SOD 40 MG DELAYED RELEASE TAB PO SCH ×2 (09:45→22:13)
[2017-01-15] MEDS: DILTIAZEM-CD 120 MG CAP ER PO SCH (09:45)
[2017-01-15] MEDS: METOPROLOL TARTRATE 25 MG TAB PO SCH ×2 (09:45→22:14)
[2017-01-15] MEDS: SUCRALFATE 1 GM TAB PO SCH ×3 (09:45→15:55)
[2017-01-15] MEDS: SODIUM CHLORIDE 0.9% FLUSH 5 ML FLUSH FLUSH SCH ×2 (09:45→22:16)
--- NOTE | 2017-01-15 11:23 | HHI.NPPN ---
Objective Data Data 01/14/17 01/15/17 19:00 07:00 Intake Total 946 ml 1980 ml Balance 946 ml 1980 ml Intake Oral 0 ml 120 ml IV Total 946 ml 1860 ml # Voids 1 1 # Bowel Movements 1 0 Vital Signs Date Time Temp Pulse Resp B/P Pulse Ox O2 Delivery O2 Flow Rate FiO2 01/15/17 09:15 Room Air 01/15/17 08:00 98.3 71 18 138/66 98 01/15/17 04:00 98.9 78 20 122/59 100 01/15/17 00:00 99.9 83 20 110/68 95 01/14/17 20:00 98.8 91 20 114/75 97 01/14/17 20:00 Room Air 01/14/17 16:00 98.5 83 16 121/58 99 01/14/17 12:00 97.7 73 16 111/57 100 -: 01/15/17 0627 01/15/17 0627 Physical Exam General Appearance: Well Developed Neck Neck Exam: Neck Supple Pulmonary Resp Exam: Clear Bilaterally, Breath Sounds Equal Cardiology CV Exam: Regular Gastrointestinal/Abdomen GI Exam: Soft Integumentary Skin Exam: Clear Extremeties Extremities Exam: No Edema Neurologic Neuro Exam: Alert Assessment/Plan Problem List: (1) Acute renal insufficiency Plan: Patient has slow improvement in renal functions underlying infection nausea/vomiting contributing continue to hydrate (2) CKD (chronic kidney disease) stage 4, GFR 15-29 ml/min Plan: Will monitor kidney situation (3) Chronic recurrent pancreatitis Plan: Nothing by mouth and keep her hydrated (4) Leukocytosis Plan: She may have underlying infection and although pancreatitis can give you high white blood cell count urine cultures so so far has not grown any specific organism (5) Anemia Plan: Continue to monitor and hydrate her Arnaldo Melara MD Jan 15, 2017 11:23
[2017-01-15 12:00] VITALS: BP 154/80; PULSE 79; RESP 18; TEMP 97.3; O2SAT 98
--- NOTE | 2017-01-15 14:10 | HHI.PR ---
Subjective Remarks Pt still having abd pain and had vomiting this morning but she does feel like the abdominal pain is improving. She is tolerating small amount of clear liquids Tmax 99.9 overnight Objective Vitals Vital Signs Date Time Temp Pulse Resp B/P Pulse Ox O2 Delivery O2 Flow Rate FiO2 01/15/17 12:00 97.3 79 18 154/80 98 01/15/17 09:15 Room Air 01/15/17 08:00 98.3 71 18 138/66 98 01/15/17 04:00 98.9 78 20 122/59 100 01/15/17 00:00 99.9 83 20 110/68 95 01/14/17 20:00 98.8 91 20 114/75 97 01/14/17 20:00 Room Air 01/14/17 16:00 98.5 83 16 121/58 99 01/14/17 01/14/17 01/15/17 15:00 23:00 07:00 Intake Total 946 ml 860 ml 1120 ml Balance 946 ml 860 ml 1120 ml Intake Oral 0 ml 120 ml IV Total 946 ml 860 ml 1000 ml # Voids 1 1 # Bowel Movements 1 0 Result Diagram: 01/15/17 0627 01/15/17 0627 Other Results Laboratory Tests Test 01/14/17 01/15/17 06:46 06:27 White Blood Count 22.6 TH/MM3 21.5 TH/MM3 Red Blood Count 3.26 MIL/MM3 3.46 MIL/MM3 Hemoglobin 8.9 GM/DL 9.3 GM/DL Hematocrit 27.4 % 29.1 % Mean Corpuscular Volume 84.0 FL 84.1 FL Mean Corpuscular Hemoglobin 27.4 PG 27.0 PG Mean Corpuscular Hemoglobin 32.6 % 32.1 % Concent Red Cell Distribution Width 15.8 % 16.1 % Platelet Count 192 TH/MM3 232 TH/MM3 Mean Platelet Volume 8.8 FL 9.3 FL Neutrophils (%) (Auto) 91.0 % 91.3 % Lymphocytes (%) (Auto) 4.3 % 4.1 % Monocytes (%) (Auto) 3.6 % 3.9 % Eosinophils (%) (Auto) 0.8 % 0.5 % Basophils (%) (Auto) 0.3 % 0.2 % Neutrophils # (Auto) 20.6 TH/MM3 19.7 TH/MM3 Lymphocytes # (Auto) 1.0 TH/MM3 0.9 TH/MM3 Monocytes # (Auto) 0.8 TH/MM3 0.8 TH/MM3 Eosinophils # (Auto) 0.2 TH/MM3 0.1 TH/MM3 Basophils # (Auto) 0.1 TH/MM3 0.0 TH/MM3 CBC Comment DIFF FINAL DIFF FINAL Differential Comment Sodium Level 143 MEQ/L 144 MEQ/L Potassium Level 4.4 MEQ/L 4.6 MEQ/L Chloride Level 111 MEQ/L 114 MEQ/L Carbon Dioxide Level 18.3 MEQ/L 17.9 MEQ/L Anion Gap 14 MEQ/L 12 MEQ/L Blood Urea Nitrogen 47 MG/DL 50 MG/DL Creatinine 3.88 MG/DL 3.80 MG/DL Estimat Glomerular Filtration 14 ML/MIN 14 ML/MIN Rate Random Glucose 67 MG/DL 68 MG/DL Calcium Level 8.2 MG/DL 8.3 MG/DL Magnesium Level 1.5 MG/DL Lipase 240 U/L 159 U/L Phosphorus Level 3.1 MG/DL Total Bilirubin 0.3 MG/DL Aspartate Amino Transf 23 U/L (AST/SGOT) Alanine Aminotransferase 25 U/L (ALT/SGPT) Alkaline Phosphatase 193 U/L Total Protein 5.6 GM/DL Albumin 1.5 GM/DL Imaging Last Impressions Chest X-Ray 01/11/17 0716 Signed Impressions: Service Date/Time: Wednesday, January 11, 2017 07:23 - CONCLUSION: No acute disease. Yunier Santana MD Abdomen/Pelvis CT 01/11/17 0000 Signed Impressions: Service Date/Time: Wednesday, January 11, 2017 10:25 - CONCLUSION: 1. Very mild induration around the pancreas, consistent with history of pancreatitis. 2. Biliary stent in place as described above. 3. I do not see an etiology for the patient's abdominal pain. Jamie Tabor MD FACR Objective Remarks General: NAD, AAOx3 Chest: CTA Cardiac: Regular Abd: +BS, soft mildly distended, mild LUQ tenderness Ext: No edema A/P Problem List: (1) Chronic recurrent pancreatitis Status: Acute Plan: - Pt has had numerous previous admissions d/t recurrent pancreatis. - Pt has followed closely for many years with [facility] and has also been seen at the [facility]. - Pt was last admitted d/t recurrent pancreatitis 11/13/15-01/02/16 and then again for same symptoms 12/14/16-12/26/16. - Pt typically has a reactive leukocytosis with her pancreatitis, and this has been seen on previous admissions. - She previously underwent ERCP with stent placement 11/22/15. Pt had G/J tube placed on 11/28/15, but this was removed. - Most recently she underwent repeat ERCP (12/11/15) with biliary stent exchange with placement of a 10 tongan, 9 cm long plastic stent. - She was actually given steroids at that time with symptomatic improvement. - Pt had fever of 103 on 01/13 and WBC count increased. Labs today with 21.5 today. - Blood cultures (01/11) with NGTD - Repeat blood cultures (01/13) with NGTD - IVF to NS @ 125mL/hr - Diet advanced to clear liquids on 01/14 but pt eating very little (25% of her trays) - narcotics prn - Creon, Protonix - repeat labs in AM - Appreciate GI Consultation, they are considering GJ tube placement for supplemental feedings. (2) Leukocytosis Status: Acute Plan: - Pt has pattern of leukocytosis which correlates with acute episodes of pancreatitis - UA at admission was abnormal but urine culture indicated probable contaminants - Blood cultures (01/11) with no growth x 4 days - She has been having fevers intermittently and WBC count 21.5 today, felt that infection is unlikely and that this is most likely related to her pancreatitis. - Repeat blood cultures (01/13) with no growth x 2 day - CXR (01/14) was normal (3) Acute on chronic kidney disease, stage 3 Status: Chronic Plan: - IVFs - Creatinine today to 3.80 - repeat labs in AM - Appreciate Nephrology consultation for further evaluation. Feel that this is likely related to dehydration. - Previous Renal US (12/17/16) --> Echogenic kidneys which can be seen in medical renal disease, bilateral renal cysts, echogenic splenic lesion likely benign and may be related to hemangioma, hypoechoic lesion on the right mid kidney may be related to a complex cyst. (4) HTN (hypertension) Status: Chronic Plan: - metoprolol, cardizem CD (5) Anxiety Status: Chronic Assessment and Plan Patient examined. Assessment and plan formulated with Guadalupe Monson PA-C. I agree with the above. Problem Qualifiers (1) HTN (hypertension): Qualified Code: I10 - Essential hypertension Guadalupe Monson Jan 15, 2017 14:10 Alexander Eddy DO Jan 17, 2017 10:43
[2017-01-15 16:30] VITALS: BP 112/57; PULSE 71; RESP 20; TEMP 98.2; O2SAT 98
--- NOTE | 2017-01-15 19:08 | HHI.GIFU ---
Subjective Remarks Patient comfortable in bed less pain less nausea and vomiting then yesterday eating her popsicle Objective Vitals I&O Vital Signs Date Time Temp Pulse Resp B/P Pulse Ox O2 Delivery O2 Flow Rate FiO2 01/15/17 16:30 98.2 71 20 112/57 98 01/15/17 12:00 97.3 79 18 154/80 98 01/15/17 09:15 Room Air 01/15/17 08:00 98.3 71 18 138/66 98 01/15/17 04:00 98.9 78 20 122/59 100 01/15/17 00:00 99.9 83 20 110/68 95 01/14/17 20:00 98.8 91 20 114/75 97 01/14/17 20:00 Room Air I/O 01/14/17 01/14/17 01/14/17 01/15/17 01/15/17 01/15/17 07:00 15:00 23:00 07:00 15:00 23:00 Intake Total 933 ml 946 ml 860 ml 1120 ml 1105 ml Balance 933 ml 946 ml 860 ml 1120 ml 1105 ml Intake Oral 0 ml 0 ml 120 ml IV Total 933 ml 946 ml 860 ml 1000 ml 1105 ml # Voids 1 1 1 3 # Bowel Movements 0 1 0 2 Laboratory Laboratory Tests Test 01/15/17 06:27 White Blood Count 21.5 Red Blood Count 3.46 Hemoglobin 9.3 Hematocrit 29.1 Mean Corpuscular Volume 84.1 Mean Corpuscular Hemoglobin 27.0 Mean Corpuscular Hemoglobin 32.1 Concent Red Cell Distribution Width 16.1 Platelet Count 232 Mean Platelet Volume 9.3 Neutrophils (%) (Auto) 91.3 Lymphocytes (%) (Auto) 4.1 Monocytes (%) (Auto) 3.9 Eosinophils (%) (Auto) 0.5 Basophils (%) (Auto) 0.2 Neutrophils # (Auto) 19.7 Lymphocytes # (Auto) 0.9 Monocytes # (Auto) 0.8 Eosinophils # (Auto) 0.1 Basophils # (Auto) 0.0 CBC Comment DIFF FINAL Differential Comment Sodium Level 144 Potassium Level 4.6 Chloride Level 114 Carbon Dioxide Level 17.9 Anion Gap 12 Blood Urea Nitrogen 50 Creatinine 3.80 Estimat Glomerular Filtration 14 Rate Random Glucose 68 Calcium Level 8.3 Phosphorus Level 3.1 Total Bilirubin 0.3 Aspartate Amino Transf 23 (AST/SGOT) Alanine Aminotransferase 25 (ALT/SGPT) Alkaline Phosphatase 193 Total Protein 5.6 Albumin 1.5 Lipase 159 Date/Time Procedure Status Source Growth 01/13/17 13:08 Aerobic Blood Culture - Preliminary Resulted Blood Peripheral NO GROWTH IN 2 DAYS 01/13/17 13:08 Anaerobic Blood Culture - Preliminary Resulted Blood Peripheral NO GROWTH IN 2 DAYS 01/11/17 07:50 Urine Culture - Final Complete Urine Clean Catch 50-100,000 CFU/ML MIXED EV... Imaging Last Impressions Chest X-Ray 01/14/17 0000 Signed Impressions: Service Date/Time: January 15:55 - CONCLUSION: Normal examination. Sanford Avina MD Abdomen/Pelvis CT 01/11/17 0000 Signed Impressions: Service Date/Time: Wednesday, January 11, 2017 10:25 - CONCLUSION: 1. Very mild induration around the pancreas, consistent with history of pancreatitis. 2. Biliary stent in place as described above. 3. I do not see an etiology for the patient's abdominal pain. Jamie Tabor MD FACR Physical Exam HEENT: normocephalic; atraumatic; no jaundice. Throat is clear. NECK: Neck is supple CHEST: Chest is clear to auscultation and percussion. CARDIAC: Regular rate and rhythm with no murmur gallop or rubs. ABDOMEN: Soft, nondistended, mild tenderness no rebound or guarding; no hepatosplenomegaly; bowel sounds are present in all four quadrants. EXTREMITIES: No clubbing, cyanosis, or edema. SKIN: Normal; no rash; no jaundice. MOBILE EQUIPMENT SERVICER: No focal deficits; alert and oriented times three. Assessment and Plan Plan ASSESSMENT: - Recurrent idiopathic pancreatitis. She has had extensive workup for this in past with MRCP, ERCP with sphincterotomy for suspected sphincter dysfunction vs. microlithiasis, Ig4 level, EUS, Triglycerides, and tertiary evaluation. She had EGD with biopsy, GJ tube repositioning, ERCP with stent removal, biliary dilation with CRE balloon, balloon extraction, and wall stent, EUS (02/12/16)------> unremarkable EUS of the pancrease, a stent was noted in the CBD, but otherwise was normal, prior sphincterotomy but otherwise normal, distal cbd stricture, smooth benign, this was dilated with CRE balloon 10mm post dil still significant narrowing and as such a full cover 10 vincentian 6 cm wall stent was placed, positioning satisfactory, prior to stent placement a 15 mm balloon was used to clear the bile duct and no stones were noted, intrahepatic biliary tree normal, not dilated, normal esophagus, hiatal hernia, large antral ulcer, clean based, this was biopsied. Pathology of antral ulcer with predominantly necroinflammatory exudate consistent with ulceration, with rare detached fragments of benign gastric mucosa. Her symptoms improved at that time with steroids and her G/J tube was removed. CT scan abdomen and pelvis (01/11/17)-----> 1. Very mild induration around the pancreas, consistent with history of pancreatitis. 2. Biliary stent in place as described above. 3. I do not see an etiology for the patient's abdominal pain. Worsening leukocytosis, WBC 22.6. Lipase trending down, 263 today, but continues to have constant abdominal pain, and worsening leukocytosis. Not tolerating diet. Pt reports that she would like to discuss possible G/J tube placement again with her daughter before making a decision. IVF, PPI. Creon. Clear liquids. - Leukocytosis. Blood cx no growth 1 day, 3 days. Urine cx with 50-100,000 CFU/ mL mixed ev. - WAYNE. 2.16. - Anemia. 8.08/11.4. EGD (12/16/16)---> small hiatal hernia, antral nodule. Pathology reactive/chemical gastropathy. Prior to this she had EGD/ Colonoscopy (10/04/15) and this revealed an ulcer at the GE junction, thick gastric fold at pre-pyloric area, mild gastritis, duodenal inflammation in the bulb and second portion of the duodenum, small polyp in the ascending colon, and moderate internal hemorrhoids. Pathology revealed gastric antral mucosal biopsies with mild chronic gastritis exhibiting histopathologic features consistent with chemical gastropathy as may be seen with bile reflux, nonsteroidal anti-inflammatory drugs or other drug induced disease negative for intestinal metaplasia and dysplasia, gricelda stain negative for helicobacter, gastroesophageal mucosal biopsy with inflammatory changes consistent with reflux negative for intestinal metaplasia and dysplasia, colonic mucosa with adenomatous polyp. Malnutrition with low albumin Leukocytosis of unclear significance PLAN: - Clear liquids - Cont. PPI - Cont. Creon - Cont. IVF - Cont. Zofran prn - Pain management per primary - Monitor cbc, bmp I'm not sure why the white count is elevated at this point consider hematology evaluation - Supportive care - G/J tube placement to be discussed with patient and her daughter tomorrow but certainly will be very helpful in resolving malnutrition, has not been able to advance diet past clear liquids since November- Pt would like to hold off for now and speak to her daughter about this prior to making a decision Gregg Ortega MD Jan 15, 2017 19:08
[2017-01-15 20:21] VITALS: BP 122/60; PULSE 70; RESP 16; TEMP 98.6; O2SAT 96
[2017-01-15] MEDS: ACETAMINOPHEN/HYDROcodone 325 MG/5 MG TAB PO PRN (22:13)
[2017-01-15] MEDS: ALBUMIN HUMAN 25% 25 GM/100 ML BAGP IV SCH (23:03)
[2017-01-16 00:01] VITALS: BP 115/56; PULSE 65; RESP 17; TEMP 98.6; O2SAT 98
[2017-01-16 04:26] VITALS: BP 117/56; PULSE 72; RESP 18; TEMP 98.6; O2SAT 100
[2017-01-16] MEDS: SODIUM CHLORIDE 0.9% FLUSH 5 ML FLUSH FLUSH PRN (04:45)
[2017-01-16] MEDS: HYDROmorphone HCL PF 1 MG/ML VIAL IV PUSH PRN ×4 (04:45→23:31)
[2017-01-16] MEDS: ALBUMIN HUMAN 25% 25 GM/100 ML BAGP IV SCH ×3 (04:47→18:11)
[2017-01-16] MEDS: SODIUM CHLOR 0.9% 1000 ML INJ 1,000 ML IV SCH ×2 (05:17→11:26)
[2017-01-16 07:14] LABS: BASOPHIL % 0.4 % (0.0-2.0); EOSINOPHIL # 0.4 TH/MM3 (0-0.4); EOSINOPHIL % 3.5 % (0.0-4.0); HEMATOCRIT 25.3 % (35.0-46.0); HEMO FLAGS DIFF FINAL; LYMPH % 9.1 % (9.0-44.0); LYMPHOCYTE # 1.1 TH/MM3 (1.0-4.8); MEAN CELL VOLUME 83.8 FL (80.0-100.0); MEAN CORPUSCULAR HGB CONC 32.2 % (32.0-36.0); MONO % 4.1 % (0.0-8.0); NEUT % 82.9 % (16.0-70.0); PLATELET COUNT 258 TH/MM3 (150-450); RED BLOOD COUNT 3.02 MIL/MM3 (4.00-5.30); RED CELL DISTRIBUTION WIDTH 16.2 % (11.6-17.2)
[2017-01-16] MEDS: ONDANSETRON HCL 4 MG/2 ML VIAL IVP PRN ×3 (07:29→23:31)
[2017-01-16 07:32] LABS: ALKALINE PHOSPHATASE 163 U/L (45-117); ALT (GPT) 21 U/L (10-53); ANION GAP 12 MEQ/L (5-15); AST (GOT) 17 U/L (15-37); BICARBONATE 17.7 MEQ/L (21.0-32.0); BLOOD UREA NITROGEN 47 MG/DL (7-18); CHLORIDE 116 MEQ/L (98-107); GLOMERULAR FILTRATION RATE 14 ML/MIN (>89); POTASSIUM 3.8 MEQ/L (3.5-5.1); SODIUM (NA) 146 MEQ/L (136-145); TOTAL BILIRUBIN ADULT 0.4 MG/DL (0.2-1.0)
[2017-01-16] MEDS: SODIUM CHLORIDE 0.9% FLUSH 5 ML FLUSH FLUSH SCH ×2 (07:52→21:00)
[2017-01-16 08:00] VITALS: BP 137/68; PULSE 84; RESP 18; TEMP 98.4; O2SAT 100
[2017-01-16] MEDS: PANTOPRAZOLE SOD 40 MG DELAYED RELEASE TAB PO SCH ×2 (08:52→21:28)
[2017-01-16] MEDS: DILTIAZEM-CD 120 MG CAP ER PO SCH (08:52)
[2017-01-16] MEDS: LIPASE/PROTEASE/AMYLASE (12,000/38,000/60,000) CAP PO SCH ×3 (08:52→16:56)
[2017-01-16] MEDS: METOPROLOL TARTRATE 25 MG TAB PO SCH ×2 (08:52→21:28)
[2017-01-16] MEDS: SUCRALFATE 1 GM TAB PO SCH ×3 (08:52→16:56)
[2017-01-16 12:00] VITALS: BP 134/64; PULSE 83; RESP 20; TEMP 97.9; O2SAT 100
[2017-01-16 16:00] VITALS: BP 162/74; PULSE 83; RESP 20; TEMP 97.5; O2SAT 99
--- NOTE | 2017-01-16 16:10 | HHI.NPPN ---
Objective Data Data 01/15/17 01/16/17 19:00 07:00 Intake Total 1105 ml 960 ml Balance 1105 ml 960 ml Intake Oral 960 ml IV Total 1105 ml # Voids 3 3 # Bowel Movements 2 1 Vital Signs Date Time Temp Pulse Resp B/P Pulse Ox O2 Delivery O2 Flow Rate FiO2 01/16/17 12:00 97.9 83 20 134/64 100 01/16/17 11:55 18 01/16/17 08:50 Room Air 01/16/17 08:00 98.4 84 18 137/68 100 01/16/17 04:26 98.6 72 18 117/56 100 01/16/17 00:01 98.6 65 17 115/56 98 01/15/17 20:21 98.6 70 16 122/60 96 01/15/17 20:00 Room Air 01/15/17 16:30 98.2 71 20 112/57 98 -: 01/16/17 0543 01/16/17 0545 Physical Exam General Appearance: Well Developed, No Acute Distress Neck Neck Exam: Neck Supple Pulmonary Resp Exam: Clear Bilaterally, Breath Sounds Equal Cardiology CV Exam: Regular Gastrointestinal/Abdomen GI Exam: Soft Extremeties Extremities Exam: No Edema Assessment/Plan Problem List: (1) Acute renal insufficiency Plan: Patient has slow improvement in renal functions cr 3.7 and ivf NS at 125 cc and Albumin 25 gm q 8 underlying infection nausea/vomiting contributing continue to hydrate (2) CKD (chronic kidney disease) stage 4, GFR 15-29 ml/min Plan: Will monitor kidney situation (3) Chronic recurrent pancreatitis Plan: Nothing by mouth and keep her hydrated (4) Leukocytosis Plan: She may have underlying infection and although pancreatitis can give you high white blood cell count urine cultures so so far has not grown any specific organism (5) Anemia Plan: Continue to monitor and hydrate her Arnaldo Melara MD Jan 16, 2017 16:10
--- NOTE | 2017-01-16 17:14 | HHI.PR ---
Objective Vitals Vital Signs Date Time Temp Pulse Resp B/P Pulse Ox O2 Delivery O2 Flow Rate FiO2 01/16/17 16:00 97.5 83 20 162/74 99 01/16/17 12:00 97.9 83 20 134/64 100 01/16/17 11:55 18 01/16/17 08:50 Room Air 01/16/17 08:00 98.4 84 18 137/68 100 01/16/17 04:26 98.6 72 18 117/56 100 01/16/17 00:01 98.6 65 17 115/56 98 01/15/17 20:21 98.6 70 16 122/60 96 01/15/17 20:00 Room Air 01/15/17 01/15/17 01/16/17 15:00 23:00 07:00 Intake Total 1105 ml 600 ml 360 ml Balance 1105 ml 600 ml 360 ml Intake Oral 600 ml 360 ml IV Total 1105 ml # Voids 3 2 1 # Bowel Movements 2 1 0 Result Diagram: 01/16/17 0543 01/16/17 0545 Imaging Last Impressions Chest X-Ray 01/11/17 0716 Signed Impressions: Service Date/Time: Wednesday, January 11, 2017 07:23 - CONCLUSION: No acute disease. Yunier Santana MD Abdomen/Pelvis CT 01/11/17 0000 Signed Impressions: Service Date/Time: Wednesday, January 11, 2017 10:25 - CONCLUSION: 1. Very mild induration around the pancreas, consistent with history of pancreatitis. 2. Biliary stent in place as described above. 3. I do not see an etiology for the patient's abdominal pain. Jamie Tabor MD FACR Objective Remarks General: NAD, AAOx3 Chest: CTA Cardiac: Regular Abd: +BS, soft mildly distended, mild LUQ tenderness Ext: No edema A/P Problem List: (1) Chronic recurrent pancreatitis Status: Acute Plan: - comgmt with GI - Pt has had numerous previous admissions d/t recurrent pancreatis. - Pt has followed closely for many years with [facility] and has also been seen at the [facility]. - Pt was last admitted d/t recurrent pancreatitis 11/13/15-01/02/16 and then again for same symptoms 12/14/16-12/26/16. - Pt typically has a reactive leukocytosis with her pancreatitis, and this has been seen on previous admissions. - She previously underwent ERCP with stent placement 11/22/15. Pt had G/J tube placed on 11/28/15, but this was removed. - Most recently she underwent repeat ERCP (12/11/15) with biliary stent exchange with placement of a 10 turkmen, 9 cm long plastic stent. - She was actually given steroids at that time with symptomatic improvement. - Pt had fever of 103 on 01/13 and WBC count increased. WBC down to 12.0 (01/16/17) - Blood cultures (01/11) with NO growth at 5 days - Repeat blood cultures (01/13) with NO growth at f3 days - IVF to 11/16 NS @ 125mL/hr - Diet advanced to clear liquids on 01/14 but pt eating very little (25% of her trays) - narcotics prn - Creon, Protonix - repeat labs in AM - Appreciate GI Consultation, they are considering GJ tube placement for supplemental feedings. (2) Leukocytosis Status: Acute Plan: - Pt has pattern of leukocytosis which correlates with acute episodes of pancreatitis - UA at admission was abnormal but urine culture indicated probable contaminants - Blood cultures (01/11) with no growth x 5 days - She has been having fevers intermittently and WBC now decreased to 12.0 () unlikely infection and that this is most likely related to her pancreatitis. - Repeat blood cultures (01/13) with no growth x 3 day - CXR (01/14) was normal (3) Acute on chronic kidney disease, stage 3 Status: Chronic Plan: - comgmt with Nephrology - IVFs - Creatinine today to 3.72 (01/16/17) - repeat labs in AM - Appreciate Nephrology consultation for further evaluation. Feel that this is likely related to dehydration. - Previous Renal US (12/17/16) --> Echogenic kidneys which can be seen in medical renal disease, bilateral renal cysts, echogenic splenic lesion likely benign and may be related to hemangioma, hypoechoic lesion on the right mid kidney may be related to a complex cyst. (4) HTN (hypertension) Status: Chronic Plan: - metoprolol, cardizem CD (5) Anxiety Status: Chronic Problem Qualifiers (1) HTN (hypertension): Qualified Code: I10 - Essential hypertension Alexander Eddy DO Jan 16, 2017 17:14
[2017-01-16] MEDS: 1/2 NS + KCL 20 MEQ INJ 1,000 ML IV SCH (17:18)
--- NOTE | 2017-01-16 17:22 | HHI.GIFU ---
Subjective Remarks Resting in bed in no distress. States that her pain is "a little better." Nausea without vomiting. Positive bowel movement today. Taking clear liquids. States she spoke to her daughter regarding the placement of a GJ tube and they 're both agreeable to have this done (Edwina Dodge) Objective Vitals I&O Vital Signs Date Time Temp Pulse Resp B/P Pulse Ox O2 Delivery O2 Flow Rate FiO2 01/16/17 16:00 97.5 83 20 162/74 99 01/16/17 12:00 97.9 83 20 134/64 100 01/16/17 11:55 18 01/16/17 08:50 Room Air 01/16/17 08:00 98.4 84 18 137/68 100 01/16/17 04:26 98.6 72 18 117/56 100 01/16/17 00:01 98.6 65 17 115/56 98 01/15/17 20:21 98.6 70 16 122/60 96 01/15/17 20:00 Room Air I/O 01/15/17 01/15/17 01/15/17 01/16/17 01/16/17 01/16/17 07:00 15:00 23:00 07:00 15:00 23:00 Intake Total 1120 ml 1105 ml 600 ml 360 ml 1330 ml Balance 1120 ml 1105 ml 600 ml 360 ml 1330 ml Intake Oral 120 ml 600 ml 360 ml 360 ml IV Total 1000 ml 1105 ml 970 ml # Voids 1 3 2 1 3 1 # Bowel Movements 0 2 1 0 2 1 Laboratory Laboratory Tests Test 01/16/17 01/16/17 05:43 05:45 White Blood Count 12.0 Red Blood Count 3.02 Hemoglobin 8.2 Hematocrit 25.3 Mean Corpuscular Volume 83.8 Mean Corpuscular Hemoglobin 27.0 Mean Corpuscular Hemoglobin 32.2 Concent Red Cell Distribution Width 16.2 Platelet Count 258 Mean Platelet Volume 8.9 Neutrophils (%) (Auto) 82.9 Lymphocytes (%) (Auto) 9.1 Monocytes (%) (Auto) 4.1 Eosinophils (%) (Auto) 3.5 Basophils (%) (Auto) 0.4 Neutrophils # (Auto) 10.0 Lymphocytes # (Auto) 1.1 Monocytes # (Auto) 0.5 Eosinophils # (Auto) 0.4 Basophils # (Auto) 0.0 CBC Comment DIFF FINAL Differential Comment Sodium Level 146 Potassium Level 3.8 Chloride Level 116 Carbon Dioxide Level 17.7 Anion Gap 12 Blood Urea Nitrogen 47 Creatinine 3.72 Estimat Glomerular Filtration 14 Rate Random Glucose 70 Calcium Level 8.0 Total Bilirubin 0.4 Aspartate Amino Transf 17 (AST/SGOT) Alanine Aminotransferase 21 (ALT/SGPT) Alkaline Phosphatase 163 Total Protein 5.7 Albumin 2.5 Lipase 120 Date/Time Procedure Status Source Growth 01/13/17 13:08 Aerobic Blood Culture - Preliminary Resulted Blood Peripheral NO GROWTH IN 3 DAYS 01/13/17 13:08 Anaerobic Blood Culture - Preliminary Resulted Blood Peripheral NO GROWTH IN 3 DAYS Imaging Last Impressions Chest X-Ray 01/14/17 0000 Signed Impressions: Service Date/Time: January 15:55 - CONCLUSION: Normal examination. Sanford Avina MD Abdomen/Pelvis CT 01/11/17 0000 Signed Impressions: Service Date/Time: Wednesday, January 11, 2017 10:25 - CONCLUSION: 1. Very mild induration around the pancreas, consistent with history of pancreatitis. 2. Biliary stent in place as described above. 3. I do not see an etiology for the patient's abdominal pain. Jamie Tabor MD FACR Physical Exam HEENT: Normocephalic; atraumatic; no jaundice. Throat is clear. NECK: Neck is supple CHEST: Chest is clear to auscultation and percussion. CARDIAC: RRR ABDOMEN: Soft, nondistended, mild tenderness no rebound or guarding; no hepatosplenomegaly; bowel sounds are present in all four quadrants. EXTREMITIES: No clubbing, cyanosis, or edema. SKIN: Normal; no rash; no jaundice. BALLOON SANDER: No focal deficits; alert and oriented times three. (DodgeEdwina [facility]) Assessment and Plan Plan ASSESSMENT: - Recurrent idiopathic pancreatitis. She has had extensive workup for this in past with MRCP, ERCP with sphincterotomy for suspected sphincter dysfunction vs. microlithiasis, Ig4 level, EUS, Triglycerides, and tertiary evaluation. She had EGD with biopsy, GJ tube repositioning, ERCP with stent removal, biliary dilation with CRE balloon, balloon extraction, and wall stent, EUS (02/12/16)------> unremarkable EUS of the pancrease, a stent was noted in the CBD, but otherwise was normal, prior sphincterotomy but otherwise normal, distal cbd stricture, smooth benign, this was dilated with CRE balloon 10mm post dil still significant narrowing and as such a full cover 10 khmer 6 cm wall stent was placed, positioning satisfactory, prior to stent placement a 15 mm balloon was used to clear the bile duct and no stones were noted, intrahepatic biliary tree normal, not dilated, normal esophagus, hiatal hernia, large antral ulcer, clean based, this was biopsied. Pathology of antral ulcer with predominantly necroinflammatory exudate consistent with ulceration, with rare detached fragments of benign gastric mucosa. Her symptoms improved at that time with steroids and her G/J tube was removed. CT scan abdomen and pelvis (01/11/17)-----> 1. Very mild induration around the pancreas, consistent with history of pancreatitis. 2. Biliary stent in place as described above. 3. I do not see an etiology for the patient's abdominal pain. Patient is tolerating clears but has not been able to be advanced past this. She and her daughter are now agreeable to have a GJ tube placed. We will schedule this for Wednesday. Lipase 120. WBC 12.0. IVF, PPI. Creon. Clear liquids. - Leukocytosis. Blood cx no growth 3 day, 5 days. Urine cx with 50-100,000 CFU/ mL mixed ev. - WAYNE, worsening renal function 3.72. - Anemia. 8.2/25.3. EGD (12/16/16)---> small hiatal hernia, antral nodule. Pathology reactive/chemical gastropathy. Prior to this she had EGD/ Colonoscopy (10/04/15) and this revealed an ulcer at the GE junction, thick gastric fold at pre-pyloric area, mild gastritis, duodenal inflammation in the bulb and second portion of the duodenum, small polyp in the ascending colon, and moderate internal hemorrhoids. Pathology revealed gastric antral mucosal biopsies with mild chronic gastritis exhibiting histopathologic features consistent with chemical gastropathy as may be seen with bile reflux, nonsteroidal anti-inflammatory drugs or other drug induced disease negative for intestinal metaplasia and dysplasia, gricelda stain negative for helicobacter, gastroesophageal mucosal biopsy with inflammatory changes consistent with reflux negative for intestinal metaplasia and dysplasia, colonic mucosa with adenomatous polyp. - Malnutrition with low albumin. Now agreeable for G/J tube placed. Will consult IR to have this placed Wednesday. PLAN: - Clear liquids - Cont. PPI - Cont. Creon - Cont. Albumin - Cont. Zofran prn - Consult IR for G/J tube - Pain management per primary - Monitor CBC, BMP - Consider hematology evaluation if leukocytosis persists/worsens - Supportive care - Pt seen and examined by Dr. Ortega and myself and this note is written on his behalf (Edwina Dodge) Physician Comments Patient seen and examined Agree with above Continue with current supportive care Monitor labs Plan for GJ tube this was discussed at length with patient's daughter and they are agreeable (Gregg Ortega MD) Edwina Dodge Jan 16, 2017 17:22 Gregg Ortega MD Jan 16, 2017 18:48
[2017-01-16 20:30] VITALS: BP 132/69; PULSE 84; RESP 18; TEMP 98.9; O2SAT 98
[2017-01-17] VITALS: BP 144/68; PULSE 86; RESP 16; TEMP 99; O2SAT 98
[2017-01-17] MEDS: ALBUMIN HUMAN 25% 25 GM/100 ML BAGP IV SCH ×3 (03:20→18:48)
[2017-01-17 04:17] VITALS: BP 154/70; PULSE 86; RESP 16; TEMP 98.6; O2SAT 100
[2017-01-17] MEDS: HYDROmorphone HCL PF 1 MG/ML VIAL IV PUSH PRN ×4 (05:17→22:57)
[2017-01-17] MEDS: 1/2 NS + KCL 20 MEQ INJ 1,000 ML IV SCH (05:34)
[2017-01-17] MEDS: ONDANSETRON HCL 4 MG/2 ML VIAL IVP PRN ×2 (06:59→22:24)
[2017-01-17 08:00] VITALS: BP 154/69; PULSE 87; RESP 18; TEMP 98.7; O2SAT 96
[2017-01-17 08:55] LABS: AUTOMATED NEUTROPHIL # 9.4 TH/MM3 (1.8-7.7); BASOPHIL % 0.4 % (0.0-2.0); EOSINOPHIL # 0.4 TH/MM3 (0-0.4); EOSINOPHIL % 3.6 % (0.0-4.0); HEMATOCRIT 26.1 % (35.0-46.0); LYMPH % 8.1 % (9.0-44.0); LYMPHOCYTE # 0.9 TH/MM3 (1.0-4.8); MEAN CELL VOLUME 84.7 FL (80.0-100.0); MEAN CORPUSCULAR HEMOGLOBIN 26.8 PG (27.0-34.0); MEAN CORPUSCULAR HGB CONC 31.7 % (32.0-36.0); MONO % 5.1 % (0.0-8.0); NEUT % 82.8 % (16.0-70.0); PLATELET COUNT 320 TH/MM3 (150-450); RED BLOOD COUNT 3.08 MIL/MM3 (4.00-5.30); RED CELL DISTRIBUTION WIDTH 16.7 % (11.6-17.2); WHITE BLOOD COUNT 11.4 TH/MM3 (4.0-11.0)
[2017-01-17] MEDS: SODIUM CHLORIDE 0.9% FLUSH 5 ML FLUSH FLUSH SCH ×2 (09:00→20:19)
[2017-01-17 09:01] LABS: HEMO FLAGS AUTO DIFF
[2017-01-17] MEDS: METOPROLOL TARTRATE 25 MG TAB PO SCH ×2 (09:25→20:18)
[2017-01-17] MEDS: PANTOPRAZOLE SOD 40 MG DELAYED RELEASE TAB PO SCH ×2 (09:25→20:18)
[2017-01-17] MEDS: DILTIAZEM-CD 120 MG CAP ER PO SCH (09:25)
[2017-01-17] MEDS: LIPASE/PROTEASE/AMYLASE (12,000/38,000/60,000) CAP PO SCH ×3 (09:25→16:28)
[2017-01-17] MEDS: SUCRALFATE 1 GM TAB PO SCH ×3 (09:25→16:28)
[2017-01-17 09:45] LABS: BANDS 2 % (0-6); BASOPHILS 1 % (0-2); EOSINOPHILS 4 % (0-4); METAMYELOCYTES 2 % (0-1); MYELOCYTES 1 % (0-0); NEUTROPHIL # MANUAL DIFF 9.5 TH/MM3 (1.8-7.7); PLATELET ESTIMATE SMEAR NORMAL (NORMAL); PLATELET MORPHOLOGY NORMAL (NORMAL); POLYS (SEG NEUTROPHILS) 78 % (16-70); SCAN/DIFF FINAL DIFF MANUAL; WBC DIFF SAMPLE 100
[2017-01-17] MEDS: cloNIDine HCL 0.2 MG TAB PO PRN (11:30)
[2017-01-17 12:00] VITALS: BP 165/79; PULSE 88; RESP 18; TEMP 98.7; O2SAT 100
--- NOTE | 2017-01-17 12:41 | HHI.GIFU ---
Subjective Remarks Resting in bed. Reports that she is only able to take small amounts of his clear liquid diet because of her abdominal pain that is aggravated by by mouth intake. She has nausea and reports that she did vomit a small amount of white foam this morning. She had a bowel movement last night. She and her daughter are now agreeable with G J-tube (EchoEdwina Joseph KILLIAN) Objective Vitals I&O Vital Signs Date Time Temp Pulse Resp B/P Pulse Ox O2 Delivery O2 Flow Rate FiO2 01/17/17 12:00 98.7 88 18 165/79 100 01/17/17 11:58 18 01/17/17 09:20 Room Air 01/17/17 08:00 98.7 87 18 154/69 96 01/17/17 04:17 98.6 86 16 154/70 100 01/17/17 00:00 99.0 86 16 144/68 98 01/16/17 22:16 Room Air 01/16/17 20:30 98.9 84 18 132/69 98 01/16/17 16:00 97.5 83 20 162/74 99 I/O 01/16/17 01/16/17 01/16/17 01/17/17 01/17/17 01/17/17 07:00 15:00 23:00 07:00 15:00 23:00 Intake Total 360 ml 1330 ml 1409 ml 667 ml Balance 360 ml 1330 ml 1409 ml 667 ml Intake Oral 360 ml 360 ml 500 ml 240 ml IV Total 970 ml 909 ml 427 ml # Voids 1 3 4 2 # Bowel Movements 0 2 1 0 Laboratory Laboratory Tests Test 01/17/17 07:31 White Blood Count 11.4 Red Blood Count 3.08 Hemoglobin 8.3 Hematocrit 26.1 Mean Corpuscular Volume 84.7 Mean Corpuscular Hemoglobin 26.8 Mean Corpuscular Hemoglobin 31.7 Concent Red Cell Distribution Width 16.7 Platelet Count 320 Mean Platelet Volume 8.7 Neutrophils (%) (Auto) 82.8 Lymphocytes (%) (Auto) 8.1 Monocytes (%) (Auto) 5.1 Eosinophils (%) (Auto) 3.6 Basophils (%) (Auto) 0.4 Neutrophils # (Auto) 9.4 Lymphocytes # (Auto) 0.9 Monocytes # (Auto) 0.6 Eosinophils # (Auto) 0.4 Basophils # (Auto) 0.0 CBC Comment AUTO DIFF Differential Total Cells 100 Counted Neutrophils % (Manual) 78 Band Neutrophils % 2 Lymphocytes % 4 Monocytes % 8 Eosinophils % 4 Basophils % 1 Neutrophils # (Manual) 9.5 Metamyelocytes 2 Myelocytes 1 Differential Comment FINAL DIFF MANUAL Platelet Estimate NORMAL Platelet Morphology Comment NORMAL Sodium Level 147 Potassium Level 4.0 Chloride Level 112 Carbon Dioxide Level 16.0 Anion Gap 19 Blood Urea Nitrogen 39 Creatinine 3.54 Estimat Glomerular Filtration 15 Rate Random Glucose 75 Calcium Level 8.4 Magnesium Level 2.0 Date/Time Procedure Status Source Growth 01/13/17 13:08 Aerobic Blood Culture - Preliminary Resulted Blood Peripheral NO GROWTH IN 4 DAYS 01/13/17 13:08 Anaerobic Blood Culture - Preliminary Resulted Blood Peripheral NO GROWTH IN 4 DAYS Imaging Last Impressions Chest X-Ray 01/14/17 0000 Signed Impressions: Service Date/Time: January 15:55 - CONCLUSION: Normal examination. Sanford Avina MD Abdomen/Pelvis CT 01/11/17 0000 Signed Impressions: Service Date/Time: Wednesday, January 11, 2017 10:25 - CONCLUSION: 1. Very mild induration around the pancreas, consistent with history of pancreatitis. 2. Biliary stent in place as described above. 3. I do not see an etiology for the patient's abdominal pain. Jamie Tabor MD FACR Physical Exam HEENT: Normocephalic; atraumatic; no jaundice. Throat is clear. NECK: Neck is supple CHEST: Chest is clear to auscultation and percussion. CARDIAC: RRR ABDOMEN: Soft, nondistended, mild tenderness no rebound or guarding; no hepatosplenomegaly; bowel sounds are present in all four quadrants. EXTREMITIES: No clubbing, cyanosis, or edema. SKIN: Normal; no rash; no jaundice. BACTERIOLOGIST SOIL: No focal deficits; alert and oriented times three. (Edwina Dodge [facility]) Assessment and Plan Plan ASSESSMENT: - Recurrent idiopathic pancreatitis. She has had extensive workup for this in past with MRCP, ERCP with sphincterotomy for suspected sphincter dysfunction vs. microlithiasis, Ig4 level, EUS, Triglycerides, and tertiary evaluation. She had EGD with biopsy, GJ tube repositioning, ERCP with stent removal, biliary dilation with CRE balloon, balloon extraction, and wall stent, EUS (02/12/16)------> unremarkable EUS of the pancrease, a stent was noted in the CBD, but otherwise was normal, prior sphincterotomy but otherwise normal, distal cbd stricture, smooth benign, this was dilated with CRE balloon 10mm post dil still significant narrowing and as such a full cover 10 georgian 6 cm wall stent was placed, positioning satisfactory, prior to stent placement a 15 mm balloon was used to clear the bile duct and no stones were noted, intrahepatic biliary tree normal, not dilated, normal esophagus, hiatal hernia, large antral ulcer, clean based, this was biopsied. Pathology of antral ulcer with predominantly necroinflammatory exudate consistent with ulceration, with rare detached fragments of benign gastric mucosa. Her symptoms improved at that time with steroids and her G/J tube was removed. CT scan abdomen and pelvis (01/11/17)-----> 1. Very mild induration around the pancreas, consistent with history of pancreatitis. 2. Biliary stent in place as described above. 3. I do not see an etiology for the patient's abdominal pain. She is only taking small amounts of clears because she feels this is aggravating her pain. She and her daughter are now agreeable to have a GJ tube placed. We will schedule this for Wednesday. PPI. Creon. Clear liquids. - Leukocytosis. Blood cx no growth 4 day, 5 days. Urine cx with 50-100,000 CFU/ mL mixed ev. - WAYNE, worsening renal function 3.54 - Anemia. 8.2/25.3. EGD (12/16/16)---> small hiatal hernia, antral nodule. Pathology reactive/chemical gastropathy. Prior to this she had EGD/Colonoscopy (10/04/15) and this revealed an ulcer at the GE junction, thick gastric fold at pre-pyloric area, mild gastritis, duodenal inflammation in the bulb and second portion of the duodenum, small polyp in the ascending colon, and moderate internal hemorrhoids. Pathology revealed gastric antral mucosal biopsies with mild chronic gastritis exhibiting histopathologic features consistent with chemical gastropathy as may be seen with bile reflux, nonsteroidal anti-inflammatory drugs or other drug induced disease negative for intestinal metaplasia and dysplasia, gricelda stain negative for helicobacter, gastroesophageal mucosal biopsy with inflammatory changes consistent with reflux negative for intestinal metaplasia and dysplasia, colonic mucosa with adenomatous polyp. - Malnutrition with low albumin. Now agreeable for G/J tube placed. Will consult IR to have this placed Wednesday. PLAN: - Clear liquids - Cont. PPI - Cont. Creon - Cont. Albumin - Cont. Zofran prn - Consult IR for G/J tube - Pain management per primary - Monitor CBC, BMP - Consider hematology evaluation if leukocytosis persists/worsens- seems to be improving now - Supportive care - Pt seen and examined by Dr. Ortega and myself and this note is written on his behalf (Edwina Dodge) Physician Comments Patient Seen and examined Agree with above Continue with current supportive care Monitor labs Plan for a GJ tube tomorrow (Gregg Ortega MD) Edwina Dodge Jan 17, 2017 12:41 Gregg Ortega MD Jan 17, 2017 18:16
--- NOTE | 2017-01-17 14:57 | HHI.PR ---
Subjective Remarks Pt continues with poor PO intake of clear liquids. Objective Vitals Vital Signs Date Time Temp Pulse Resp B/P Pulse Ox O2 Delivery O2 Flow Rate FiO2 01/17/17 12:00 98.7 88 18 165/79 100 01/17/17 11:58 18 01/17/17 09:20 Room Air 01/17/17 08:00 98.7 87 18 154/69 96 01/17/17 04:17 98.6 86 16 154/70 100 01/17/17 00:00 99.0 86 16 144/68 98 01/16/17 22:16 Room Air 01/16/17 20:30 98.9 84 18 132/69 98 01/16/17 16:00 97.5 83 20 162/74 99 01/16/17 01/16/17 01/17/17 15:00 23:00 07:00 Intake Total 1330 ml 1409 ml 667 ml Balance 1330 ml 1409 ml 667 ml Intake Oral 360 ml 500 ml 240 ml IV Total 970 ml 909 ml 427 ml # Voids 3 4 2 # Bowel Movements 2 1 0 Result Diagram: 01/17/17 0731 01/17/17 0731 Imaging Last Impressions Chest X-Ray 01/11/17 0716 Signed Impressions: Service Date/Time: Wednesday, January 11, 2017 07:23 - CONCLUSION: No acute disease. Yunier Santana MD Abdomen/Pelvis CT 01/11/17 0000 Signed Impressions: Service Date/Time: Wednesday, January 11, 2017 10:25 - CONCLUSION: 1. Very mild induration around the pancreas, consistent with history of pancreatitis. 2. Biliary stent in place as described above. 3. I do not see an etiology for the patient's abdominal pain. Jamie Tabor MD FACR Objective Remarks General: NAD, AAOx3 Chest: CTA Cardiac: Regular Abd: +BS, soft mildly distended, mild LUQ tenderness Ext: No edema A/P Problem List: (1) Chronic recurrent pancreatitis Status: Acute Plan: - comgmt with GI - Pt has had numerous previous admissions d/t recurrent pancreatis. - Pt has followed closely for many years with [facility] and has also been seen at the [facility]. - Pt was last admitted d/t recurrent pancreatitis 11/13/15-01/02/16 and then again for same symptoms 1/30/17-12/26/16. - Pt typically has a reactive leukocytosis with her pancreatitis, and this has been seen on previous admissions. - She previously underwent ERCP with stent placement 11/22/15. Pt had G/J tube placed on 11/28/15, but this was removed. - Most recently she underwent repeat ERCP (12/11/15) with biliary stent exchange with placement of a 10 bengali, 9 cm long plastic stent. - She was actually given steroids at that time with symptomatic improvement. - Pt had fever of 103 on 01/13 and WBC count increased. WBC down to 12.0 (01/16/17) - Blood cultures (01/11) with NO growth at 5 days - Repeat blood cultures (01/13) with NO growth at f3 days - IVF to 11/16 NS @ 125mL/hr - Diet advanced to clear liquids on 01/14 but pt eating very little (25% of her trays) - narcotics prn - Creon, Protonix - repeat labs in AM - Pt to undergo placement of G/J tube with IR for supplemental feedings. (2) Leukocytosis Status: Acute Plan: - improving - Pt has pattern of leukocytosis which correlates with acute episodes of pancreatitis - UA at admission was abnormal but urine culture indicated probable contaminants - Blood cultures (01/11) with no growth x 5 days - She has been having fevers intermittently and WBC now decreased to 11.4 () unlikely infection and that this is most likely related to her pancreatitis. - Repeat blood cultures (01/13) with no growth x 4 day - CXR (01/14) was normal (3) Acute on chronic kidney disease, stage 3 Status: Chronic Plan: - comgmt with Nephrology - Creatinine today to 3.54 (01/17/17) - change labs to D5W with KCL for 1 liter, pt trending hypernatremic - repeat labs in AM - Appreciate Nephrology consultation for further evaluation. Feel that this is likely related to dehydration. - Previous Renal US (12/17/16) --> Echogenic kidneys which can be seen in medical renal disease, bilateral renal cysts, echogenic splenic lesion likely benign and may be related to hemangioma, hypoechoic lesion on the right mid kidney may be related to a complex cyst. (4) HTN (hypertension) Status: Chronic Plan: - metoprolol, cardizem CD (5) Anxiety Status: Chronic Problem Qualifiers (1) HTN (hypertension): Qualified Code: I10 - Essential hypertension Alexander Eddy DO Jan 17, 2017 14:57
[2017-01-17] MEDS ORDERED: POTASSIUM CHLORIDE INJ 20 MEQ in DEXTROSE 5% IN WATE 1000ML INJ 1,000 ML IV SCH ×2 (15:00)
[2017-01-17 16:00] VITALS: BP 142/78; PULSE 82; RESP 20; TEMP 99.1; O2SAT 100
[2017-01-17] MEDS ORDERED: D5W + KCL 20 MEQ INJ 1,000 ML IV SCH (16:00)
--- NOTE | 2017-01-17 16:53 | HHI.NPPN ---
Objective Data Data 01/16/17 01/17/17 19:00 07:00 Intake Total 1330 ml 2076 ml Balance 1330 ml 2076 ml Intake Oral 360 ml 740 ml IV Total 970 ml 1336 ml # Voids 4 5 # Bowel Movements 3 0 Vital Signs Date Time Temp Pulse Resp B/P Pulse Ox O2 Delivery O2 Flow Rate FiO2 01/17/17 12:00 98.7 88 18 165/79 100 01/17/17 11:58 18 01/17/17 09:20 Room Air 01/17/17 08:00 98.7 87 18 154/69 96 01/17/17 04:17 98.6 86 16 154/70 100 01/17/17 00:00 99.0 86 16 144/68 98 01/16/17 22:16 Room Air 01/16/17 20:30 98.9 84 18 132/69 98 -: 01/17/17 0731 01/17/17 0731 Physical Exam General Appearance: Well Developed Pulmonary Resp Exam: Clear Bilaterally Cardiology CV Exam: Regular Gastrointestinal/Abdomen GI Exam: Soft Extremeties Extremities Exam: No Edema Assessment/Plan Problem List: (1) Acute renal insufficiency Plan: Patient has slow improvement in renal functions cr 3.5 and ivf changed to D5 at Na 147 underlying infection nausea/vomiting contributing continue to hydrate (2) CKD (chronic kidney disease) stage 4, GFR 15-29 ml/min Plan: Will monitor kidney situation (3) Chronic recurrent pancreatitis Plan: Nothing by mouth and keep her hydrated (4) Leukocytosis Plan: She may have underlying infection and although pancreatitis can give you high white blood cell count urine cultures so so far has not grown any specific organism (5) Anemia Plan: Continue to monitor and hydrate her Arnaldo Melara MD Jan 17, 2017 16:53
[2017-01-17 20:00] VITALS: BP 182/79; PULSE 84; RESP 28; TEMP 98.6; O2SAT 99
[2017-01-18] VITALS (10 sets, daily range): BP systolic 130–176; BP diastolic 63–85; PULSE 67–92; RESP 16–20; TEMP 97.9–98.9; O2SAT 92–100
[2017-01-18] MEDS: ACETAMINOPHEN/HYDROcodone 325 MG/5 MG TAB PO PRN ×3 (01:23→17:55)
[2017-01-18] MEDS: ALBUMIN HUMAN 25% 25 GM/100 ML BAGP IV SCH ×2 (04:13→13:53)
[2017-01-18] MEDS: HYDROmorphone HCL PF 1 MG/ML VIAL IV PUSH PRN ×2 (05:02→13:53)
[2017-01-18] MEDS: ONDANSETRON HCL 4 MG/2 ML VIAL IVP PRN ×2 (05:02→13:57)
[2017-01-18 07:14] LABS: AUTOMATED NEUTROPHIL # 10.1 TH/MM3 (1.8-7.7); BASOPHIL # 0.1 TH/MM3 (0-0.2); BASOPHIL % 0.5 % (0.0-2.0); EOSINOPHIL # 0.4 TH/MM3 (0-0.4); EOSINOPHIL % 3.4 % (0.0-4.0); HEMATOCRIT 23.9 % (35.0-46.0); LYMPH % 10.4 % (9.0-44.0); LYMPHOCYTE # 1.3 TH/MM3 (1.0-4.8); MEAN CELL VOLUME 83.5 FL (80.0-100.0); MEAN CORPUSCULAR HEMOGLOBIN 26.6 PG (27.0-34.0); MEAN CORPUSCULAR HGB CONC 31.9 % (32.0-36.0); MONO % 5.8 % (0.0-8.0); NEUT % 79.9 % (16.0-70.0); PLATELET COUNT 347 TH/MM3 (150-450); RED BLOOD COUNT 2.87 MIL/MM3 (4.00-5.30); RED CELL DISTRIBUTION WIDTH 16.4 % (11.6-17.2); WHITE BLOOD COUNT 12.6 TH/MM3 (4.0-11.0)
[2017-01-18 07:15] LABS: HEMO FLAGS AUTO DIFF
[2017-01-18 07:36] LABS: BICARBONATE 19.4 MEQ/L (21.0-32.0); MAGNESIUM 1.7 MG/DL (1.5-2.5); POTASSIUM 3.2 MEQ/L (3.5-5.1)
[2017-01-18 08:04] LABS: EOSINOPHILS 1 % (0-4); METAMYELOCYTES 2 % (0-1); NEUTROPHIL # MANUAL DIFF 10.6 TH/MM3 (1.8-7.7); POLYS (SEG NEUTROPHILS) 82 % (16-70); WBC DIFF SAMPLE 100
[2017-01-18 08:05] LABS: PLATELET ESTIMATE SMEAR NORMAL (NORMAL); PLATELET MORPHOLOGY NORMAL (NORMAL); SCAN/DIFF FINAL DIFF MANUAL
--- NOTE | 2017-01-18 09:28 | HHI.PR ---
Subjective Remarks doing ok. Objective Vitals heart reg lung cta abd s/nt ext no edema Vital Signs Date Time Temp Pulse Resp B/P Pulse Ox O2 Delivery O2 Flow Rate FiO2 01/18/17 08:00 98.3 71 20 140/74 92 01/18/17 00:00 98.5 87 16 176/84 93 01/17/17 20:19 Room Air 01/17/17 20:00 98.6 84 28 182/79 99 01/17/17 17:48 18 01/17/17 16:00 99.1 82 20 142/78 100 01/17/17 12:00 98.7 88 18 165/79 100 01/17/17 01/17/17 01/18/17 15:00 23:00 07:00 Intake Total 1218 ml 428 ml 247 ml Output Total 650 ml Balance 568 ml 428 ml 247 ml Intake Oral 600 ml IV Total 618 ml 328 ml 247 ml Albumin 100 ml Output Urine Total 650 ml # Voids 3 # Bowel Movements 1 Result Diagram: 01/18/17 0556 01/18/17 0556 Imaging Last Impressions Chest X-Ray 01/11/17 0716 Signed Impressions: Service Date/Time: Wednesday, January 11, 2017 07:23 - CONCLUSION: No acute disease. Yunier Santana MD Abdomen/Pelvis CT 01/11/17 0000 Signed Impressions: Service Date/Time: Wednesday, January 11, 2017 10:25 - CONCLUSION: 1. Very mild induration around the pancreas, consistent with history of pancreatitis. 2. Biliary stent in place as described above. 3. I do not see an etiology for the patient's abdominal pain. Jamie Tabor MD FACR A/P Problem List: (1) Chronic recurrent pancreatitis Status: Acute Plan: - comgmt with GI - Pt has had numerous previous admissions d/t recurrent pancreatis. - Pt has followed closely for many years with [facility] and has also been seen at the [facility]. - Pt was last admitted d/t recurrent pancreatitis 11/13/15-01/02/16 and then again for same symptoms 12/14/16-12/26/16. - Pt typically has a reactive leukocytosis with her pancreatitis, and this has been seen on previous admissions. - She previously underwent ERCP with stent placement 11/22/15. Pt had G/J tube placed on 11/28/15, but this was removed. - Most recently she underwent repeat ERCP (12/11/15) with biliary stent exchange with placement of a 10 tunisian, 9 cm long plastic stent. - She was actually given steroids at that time with symptomatic improvement. - Pt had fever of 103 on 01/13 and WBC count increased. WBC down to 12.0 (01/16/17) - Blood cultures (01/11) with NO growth at 5 days - Repeat blood cultures (01/13) with NO growth at f3 days - IVF to 11/16 NS @ 125mL/hr - Diet advanced to clear liquids on 01/14 but pt eating very little (25% of her trays) - narcotics prn - Creon, Protonix - Pt to undergo placement of G/J tube with IR for supplemental feedings today (2) Leukocytosis Status: Acute Plan: - improving - Pt has pattern of leukocytosis which correlates with acute episodes of pancreatitis - UA at admission was abnormal but urine culture indicated probable contaminants - Blood cultures (01/11) with no growth x 5 days - She has been having fevers intermittently and WBC now decreased to 11.4 () unlikely infection and that this is most likely related to her pancreatitis. - Repeat blood cultures (01/13) with no growth x 4 day - CXR (01/14) was normal (3) Acute on chronic kidney disease, stage 3 Status: Chronic Plan: - comgmt with Nephrology - Creatinine trending down. - Appreciate Nephrology consultation for further evaluation. Feel that this is likely related to dehydration. - Previous Renal US (12/17/16) --> Echogenic kidneys which can be seen in medical renal disease, bilateral renal cysts, echogenic splenic lesion likely benign and may be related to hemangioma, hypoechoic lesion on the right mid kidney may be related to a complex cyst. (4) HTN (hypertension) Status: Chronic Plan: - metoprolol, cardizem CD (5) Anxiety Status: Chronic Problem Qualifiers (1) HTN (hypertension): Qualified Code: I10 - Essential hypertension Bryan Quezada MD Jan 18, 2017 09:28
[2017-01-18] MEDS: SUCRALFATE 1 GM TAB PO SCH ×3 (09:52→17:49)
[2017-01-18] MEDS: LIPASE/PROTEASE/AMYLASE (12,000/38,000/60,000) CAP PO SCH ×3 (09:52→17:49)
[2017-01-18] MEDS: PANTOPRAZOLE SOD 40 MG DELAYED RELEASE TAB PO SCH ×2 (09:52→21:00)
[2017-01-18] MEDS: METOPROLOL TARTRATE 25 MG TAB PO SCH ×2 (09:52→21:00)
[2017-01-18] MEDS: DILTIAZEM-CD 120 MG CAP ER PO SCH (09:52)
[2017-01-18] MEDS: SODIUM CHLORIDE 0.9% FLUSH 5 ML FLUSH FLUSH SCH ×2 (09:52→21:00)
[2017-01-18] MEDS ORDERED: fentaNYL CITRATE 250 MCG/5 ML AMP ONE (10:27)
[2017-01-18] MEDS ORDERED: MIDAZOLAM HCL 5 MG/5 ML VIAL ONE (10:27)
[2017-01-18] MEDS ORDERED: GLUCAGON 1 MG/ML VIAL ONE (10:27)
[2017-01-18] MEDS ORDERED: METOCLOPRAMIDE HCL 10 MG/2 ML VIAL ONE (10:28)
--- NOTE | 2017-01-18 11:49 | PD.RAD ---
Post Procedure Progress Note Pre Procedure Diagnosis: (1) Acute pancreatitis Post Procedure Diagnosis: (1) Acute pancreatitis Procedure Date: Jan 18, 2017 Supervising Radiologist: Ryan Stuart Proceduralist/Assist: Junior Ventura RT(R), RT Karlos(R)() Plan of Activity Patient to Unit: Critical Care Patient Condition: Poor See PACS Report for procedural detail/treatment Feeding Tube Placement Ryan Stuart MD Jan 18, 2017 11:48
[2017-01-18] MEDS ORDERED: IOHEXOL 350 MG/ML 50 ML BTL (for RAD DIAG) G-TUBE ONE (11:50)
--- NOTE | 2017-01-18 12:32 | HHI.NPPN ---
Objective Data Data 01/17/17 01/18/17 19:00 07:00 Intake Total 1218 ml 675 ml Output Total 650 ml Balance 568 ml 675 ml Intake Oral 600 ml IV Total 618 ml 575 ml Albumin 100 ml Output Urine Total 650 ml # Voids 3 # Bowel Movements 1 Vital Signs Date Time Temp Pulse Resp B/P Pulse Ox O2 Delivery O2 Flow Rate FiO2 01/18/17 10:03 Room Air 01/18/17 08:00 98.3 71 20 140/74 92 01/18/17 00:00 98.5 87 16 176/84 93 01/17/17 20:19 Room Air 01/17/17 20:00 98.6 84 28 182/79 99 01/17/17 17:48 18 01/17/17 16:00 99.1 82 20 142/78 100 -: 01/18/17 0556 01/18/17 0556 Physical Exam General Appearance: Well Developed Neck Neck Exam: Neck Supple Pulmonary Resp Exam: Clear Bilaterally, Breath Sounds Equal Cardiology CV Exam: Regular Gastrointestinal/Abdomen GI Exam: Soft Integumentary Skin Exam: Clear Extremeties Extremities Exam: No Edema Neurologic Neuro Exam: Alert Assessment/Plan Problem List: (1) Acute renal insufficiency Plan: Patient has slow improvement in renal functions cr 2.97 and ivf D5 with KCL k 3.2 Na better nausea/vomiting contributing getting J tube continue to hydrate (2) CKD (chronic kidney disease) stage 4, GFR 15-29 ml/min Plan: Will monitor kidney situation (3) Chronic recurrent pancreatitis Plan: Nothing by mouth and keep her hydrated (4) Leukocytosis Plan: She may have underlying infection and although pancreatitis can give you high white blood cell count urine cultures so so far has not grown any specific organism (5) Anemia Plan: Continue to monitor and hydrate her Arnaldo Melara MD Jan 18, 2017 12:32
--- NOTE | 2017-01-18 12:53 | RADRPT ---
EXAM DATE/TIME: 01/18/2017 11:08 [place] COMPARISON: GASTROJEJUNAL TUBE [facility] W/US, November 28, 2015, 14:22. INDICATIONS : Patient is in need of placement of a G-J tube placement due to chronic recurrent pancreatitis. MEDICAL HISTORY : History of AFIB, HTN, renal disease, GERD. SURGICAL HISTORY : History of biliary stent placement, G-J tube placement, cholecystectomy, sphincterotomy, hiatal herni a repair, hemorrhoidectomy, left knee replacement, ERCP, cataract removal. ENCOUNTER: Subsequent ACUITY: > 1 year PAIN SCORE: 0/10 FLUORO TIME: 4.9 minutes IMAGE SERIES: 3 SEDATION TIME: 30 minutes CONTRAST: 15 cc Omnipaque (iohexol) 350 MEDICATION(S): 1.) 3 mg midazolam (Versed) IV 2.) 200 mcg Fentanyl (Sublimaze) IV 3.) 1 mg glucagon (Gluca-Gen) IV DEVICE(S): 1.) 22 Fr Transgastric tube PROCEDURE : 1. Limited abdominal ultrasound. 2. Fluoroscopically guided gastrojejunostomy tube placement. 3. Conscious sedation with continuous EKG and oximetry monitoring. The risks, benefits and alternatives to the procedure were explained and verbal and written consent w as obtained. The site was prepped in sterile fashion. Full sterile technique was used, including ca p, mask, sterile gloves and gown and a large sterile sheet. Hand hygiene and 2% chlorhexidine and/or betadine/alcohol prep was utilized per protocol for cutaneous antisepsis. The skin and subcutaneous tissues were infiltrated with local anesthetic solution. Ultrasound was used to taty the position of the liver. 1 mg of Glucagon was administered. The stoma ch was insufflated with room air using. Three percutaneous fasteners were placed to secure the anteri or gastric wall. A small incision was made between the fasteners. The stomach was accessed with an 18 gauge needle. A n 0.035 wire was advanced into the small bowel. The tract was dilated. The gastrojejunostomy tube w as introduced through a peel-away sheath. The position was confirmed with an injection of contrast in both the gastric and jejunal lumens. Conscious sedation was performed with the prescribed dosages and duration as above in the presence of an independent trained radiology nurse to assist in the monitoring of the patient. EKG and oximetry remained stable throughout the procedure. The patient tolerated the procedure well and there were n o complications. The patient was sent to post anesthesia recovery in stable condition. CONCLUSION: Uncomplicated gastrojejunostomy tube placement as above. Ryan Stuart MD on January 18, 2017 at 12:51 Board Certified Radiologist. This report was verified electronically.
--- NOTE | 2017-01-18 14:46 | HHI.GIFU ---
Subjective Remarks Resting in bed. Had G/J tube placed earlier today. Continues to have abdominal pain, states slowly getting better and that her pain is controlled. Would like to stay on clear liquids today. Objective Vitals I&O Vital Signs Date Time Temp Pulse Resp B/P Pulse Ox O2 Delivery O2 Flow Rate FiO2 01/18/17 13:02 67 17 150/70 100 01/18/17 12:32 67 18 154/77 95 01/18/17 12:02 68 17 157/83 94 01/18/17 11:47 97.9 75 16 165/85 94 01/18/17 10:03 Room Air 01/18/17 08:00 98.3 71 20 140/74 92 01/18/17 00:00 98.5 87 16 176/84 93 01/17/17 20:19 Room Air 01/17/17 20:00 98.6 84 28 182/79 99 01/17/17 17:48 18 01/17/17 16:00 99.1 82 20 142/78 100 I/O 01/17/17 01/17/17 01/17/17 01/18/17 01/18/17 01/18/17 07:00 15:00 23:00 07:00 15:00 23:00 Intake Total 767 ml 1218 ml 428 ml 247 ml Output Total 650 ml Balance 767 ml 568 ml 428 ml 247 ml Intake Oral 240 ml 600 ml IV Total 427 ml 618 ml 328 ml 247 ml Albumin 100 ml 100 ml Output Urine Total 650 ml # Voids 2 3 # Bowel Movements 0 1 Laboratory Laboratory Tests Test 01/18/17 05:56 White Blood Count 12.6 Red Blood Count 2.87 Hemoglobin 7.6 Hematocrit 23.9 Mean Corpuscular Volume 83.5 Mean Corpuscular Hemoglobin 26.6 Mean Corpuscular Hemoglobin 31.9 Concent Red Cell Distribution Width 16.4 Platelet Count 347 Mean Platelet Volume 8.6 Neutrophils (%) (Auto) 79.9 Lymphocytes (%) (Auto) 10.4 Monocytes (%) (Auto) 5.8 Eosinophils (%) (Auto) 3.4 Basophils (%) (Auto) 0.5 Neutrophils # (Auto) 10.1 Lymphocytes # (Auto) 1.3 Monocytes # (Auto) 0.7 Eosinophils # (Auto) 0.4 Basophils # (Auto) 0.1 CBC Comment AUTO DIFF Differential Total Cells 100 Counted Neutrophils % (Manual) 82 Lymphocytes % 8 Monocytes % 7 Eosinophils % 1 Neutrophils # (Manual) 10.6 Metamyelocytes 2 Differential Comment FINAL DIFF MANUAL Platelet Estimate NORMAL Platelet Morphology Comment NORMAL Sodium Level 145 Potassium Level 3.2 Chloride Level 112 Carbon Dioxide Level 19.4 Anion Gap 14 Blood Urea Nitrogen 29 Creatinine 2.97 Estimat Glomerular Filtration 18 Rate Random Glucose 103 Calcium Level 8.6 Magnesium Level 1.7 Imaging Last Impressions Gastrostomy Tube Placement 01/18/17 0000 Signed Impressions: Service Date/Time: Wednesday, January 18, 2017 11:08 - CONCLUSION: Uncomplicated gastrojejunostomy tube placement as above. Ryan Stuart MD Chest X-Ray 01/14/17 0000 Signed Impressions: Service Date/Time: January 15:55 - CONCLUSION: Normal examination. Sanford Avina MD Abdomen/Pelvis CT 01/11/17 0000 Signed Impressions: Service Date/Time: Wednesday, January 11, 2017 10:25 - CONCLUSION: 1. Very mild induration around the pancreas, consistent with history of pancreatitis. 2. Biliary stent in place as described above. 3. I do not see an etiology for the patient's abdominal pain. Jamie Tabor MD FACR Physical Exam HEENT: Normocephalic; atraumatic; no jaundice. Throat is clear. NECK: Neck is supple CHEST: CTA CARDIAC: RRR ABDOMEN: Soft, nondistended, mild tenderness no rebound or guarding; no hepatosplenomegaly; bowel sounds are present in all four quadrants. G/J tube with scant amount sanguinous drainage at site. EXTREMITIES: No clubbing, cyanosis, or edema. SKIN: Normal; no rash; no jaundice. PERIOPERATIVE NURSE: No focal deficits; alert and oriented times three. Assessment and Plan Plan ASSESSMENT: - Recurrent idiopathic pancreatitis. She has had extensive workup for this in past with MRCP, ERCP with sphincterotomy for suspected sphincter dysfunction vs. microlithiasis, Ig4 level, EUS, Triglycerides, and tertiary evaluation. She had EGD with biopsy, GJ tube repositioning, ERCP with stent removal, biliary dilation with CRE balloon, balloon extraction, and wall stent, EUS (02/12/16)------> unremarkable EUS of the pancrease, a stent was noted in the CBD, but otherwise was normal, prior sphincterotomy but otherwise normal, distal cbd stricture, smooth benign, this was dilated with CRE balloon 10mm post dil still significant narrowing and as such a full cover 10 t[place]anian 6 cm wall stent was placed, positioning satisfactory, prior to stent placement a 15 mm balloon was used to clear the bile duct and no stones were noted, intrahepatic biliary tree normal, not dilated, normal esophagus, hiatal hernia, large antral ulcer, clean based, this was biopsied. Pathology of antral ulcer with predominantly necroinflammatory exudate consistent with ulceration, with rare detached fragments of benign gastric mucosa. Her symptoms improved at that time with steroids and her G/J tube was removed. CT scan abdomen and pelvis (01/11/17)-----> 1. Very mild induration around the pancreas, consistent with history of pancreatitis. 2. Biliary stent in place as described above. 3. I do not see an etiology for the patient's abdominal pain. S/P G/J tube. Will start TF tonight after 4 hours per IR recommendations- Jevity 1.5 at GR 50cc/hr. Okay to resume clears. PPI. Creon. - Leukocytosis. Blood cx no growth 4 day, 5 days. Urine cx with 50-100,000 CFU/ mL mixed ev. - WAYNE, per renal/primary - Anemia. EGD (12/16/16)---> small hiatal hernia, antral nodule. Pathology reactive/chemical gastropathy. Prior to this she had EGD/Colonoscopy (10/04/15) and this revealed an ulcer at the GE junction, thick gastric fold at pre-pyloric area, mild gastritis, duodenal inflammation in the bulb and second portion of the duodenum, small polyp in the ascending colon, and moderate internal hemorrhoids. Pathology revealed gastric antral mucosal biopsies with mild chronic gastritis exhibiting histopathologic features consistent with chemical gastropathy as may be seen with bile reflux, nonsteroidal anti-inflammatory drugs or other drug induced disease negative for intestinal metaplasia and dysplasia, gricelda stain negative for helicobacter, gastroesophageal mucosal biopsy with inflammatory changes consistent with reflux negative for intestinal metaplasia and dysplasia, colonic mucosa with adenomatous polyp. - Malnutrition with low albumin. Now agreeable for G/J tube placed. Will consult IR to have this placed Wednesday. PLAN: - Resume Clear liquids - Start TF Jevity 1.5 at 30cc/hr and increase to GR of 50cc/hr at 7pm tonight- via J tube. - Cont. PPI - Cont. Creon - Cont. Albumin - Cont. Zofran prn - Pain management per primary - Supportive care - Pt seen and examined by Dr. Hernandez and myself and this note is written on his behalf Edwina Dodge Jan 18, 2017 14:45
--- NOTE | 2017-01-18 14:47 | EKG ---
Date Performed: 01/11/2017 Time Performed: 07:30:49 PTAGE: 81 years EKG: Sinus rhythm POSSIBLE RIGHT ATRIAL ENLARGEMENT BORDERLINE ECG Compared to prior tracing no significant change NO PREVIOUS TRACING DOCTOR: Ryan Faustin Interpretating Date/Time 01/18/2017 14:47:27
[2017-01-18] MEDS: cloNIDine HCL 0.2 MG TAB PO PRN (17:49)
[2017-01-19] VITALS: BP 136/65; PULSE 82; RESP 18; TEMP 98.8; O2SAT 93
[2017-01-19] MEDS: HYDROmorphone HCL PF 1 MG/ML VIAL IV PUSH PRN ×4 (02:16→20:43)
[2017-01-19 04:00] VITALS: BP 133/65; PULSE 95; RESP 18; TEMP 100; O2SAT 92
[2017-01-19] MEDS: ONDANSETRON HCL 4 MG/2 ML VIAL IVP PRN ×3 (05:26→17:06)
[2017-01-19] MEDS: ACETAMINOPHEN/HYDROcodone 325 MG/5 MG TAB PO PRN ×2 (06:30→23:44)
[2017-01-19 08:00] VITALS: BP 137/61; PULSE 85; RESP 18; TEMP 99.4; O2SAT 94
[2017-01-19] MEDS ORDERED: SODIUM CHLORID 0.9% 500 ML INJ 500 ML IV ONE (08:30)
--- NOTE | 2017-01-19 08:32 | HHI.PR ---
Subjective Remarks sill c/o panceas pain Objective Vitals heart reg lung cta abd s/bs/nd ext no edema Vital Signs Date Time Temp Pulse Resp B/P Pulse Ox O2 Delivery O2 Flow Rate FiO2 01/19/17 04:00 100.0 95 18 133/65 92 01/19/17 00:00 98.8 82 18 136/65 93 01/18/17 23:30 79 01/18/17 23:10 Room Air 01/18/17 20:00 98.4 92 18 130/63 92 01/18/17 16:00 98.9 88 20 172/74 95 01/18/17 13:02 67 17 150/70 100 01/18/17 13:00 71 154/74 97 01/18/17 12:32 67 18 154/77 95 01/18/17 12:02 68 17 157/83 94 01/18/17 11:47 97.9 75 16 165/85 94 01/18/17 10:03 Room Air 01/18/17 01/18/17 01/19/17 15:00 23:00 07:00 Intake Total 0 ml 127 ml 449 ml Output Total 1000 ml Balance -1000 ml 127 ml 449 ml Intake Oral 0 ml 0 ml 100 ml Tube Feeding 127 ml 349 ml Output Urine Total 1000 ml # Voids 0 2 # Bowel Movements 1 0 0 Result Diagram: 01/18/17 0556 01/18/17 0556 Imaging Last Impressions Chest X-Ray 01/11/17 0716 Signed Impressions: Service Date/Time: Wednesday, January 11, 2017 07:23 - CONCLUSION: No acute disease. Yunier Santana MD Abdomen/Pelvis CT 01/11/17 0000 Signed Impressions: Service Date/Time: Wednesday, January 11, 2017 10:25 - CONCLUSION: 1. Very mild induration around the pancreas, consistent with history of pancreatitis. 2. Biliary stent in place as described above. 3. I do not see an etiology for the patient's abdominal pain. Jamie Tabor MD FACR A/P Problem List: (1) Chronic recurrent pancreatitis Status: Acute Plan: - comgmt with GI - Pt has had numerous previous admissions d/t recurrent pancreatis. - Pt has followed closely for many years with [facility] and has also been seen at the [facility]. - Pt was last admitted d/t recurrent pancreatitis 11/13/15-01/02/16 and then again for same symptoms 12/14/16-12/26/16. - Pt typically has a reactive leukocytosis with her pancreatitis, and this has been seen on previous admissions. - She previously underwent ERCP with stent placement 11/22/15. Pt had G/J tube placed on 11/28/15, but this was removed. - Most recently she underwent repeat ERCP (12/11/15) with biliary stent exchange with placement of a 10 luxembourgish, 9 cm long plastic stent. - She was actually given steroids at that time with symptomatic improvement. admitted with recurrent pancreatitis and ramón/ckd - Pt had fever of 103 on 01/13 and WBC count increased. WBC down to 12.0 (01/16/17) ..felt related to acute pancreatitis. - Blood cultures (01/11) with NO growth at 5 days - Repeat blood cultures (01/13) NGTD -GJ tube placed on 01/18. TF started -cont ivf until cr back to baseline. replace lytes -dvt prophylaxis - narcotics prn - Creon, Protonix (2) Leukocytosis Status: Acute Plan: - improving - Pt has pattern of leukocytosis which correlates with acute episodes of pancreatitis - UA at admission was abnormal but urine culture indicated probable contaminants - Blood cultures (01/11) with no growth x 5 days - She has been having fevers intermittently and WBC now decreased to 11.4 () unlikely infection and that this is most likely related to her pancreatitis. - Repeat blood cultures (01/13) with no growth x 4 day - CXR (01/14) was normal (3) Acute on chronic kidney disease, stage 3 Status: Chronic Plan: - comgmt with Nephrology - Creatinine trending down. - Appreciate Nephrology consultation for further evaluation. Feel that this is likely related to dehydration. - Previous Renal US (12/17/16) --> Echogenic kidneys which can be seen in medical renal disease, bilateral renal cysts, echogenic splenic lesion likely benign and may be related to hemangioma, hypoechoic lesion on the right mid kidney may be related to a complex cyst. (4) HTN (hypertension) Status: Chronic Plan: - metoprolol, cardizem CD (5) Anxiety Status: Chronic Problem Qualifiers (1) HTN (hypertension): Qualified Code: I10 - Essential hypertension Bryan Quezada MD Jan 19, 2017 08:32
[2017-01-19] MEDS: PANTOPRAZOLE SOD 40 MG DELAYED RELEASE TAB PO SCH ×2 (09:00→20:47)
[2017-01-19] MEDS: METOPROLOL TARTRATE 25 MG TAB PO SCH ×2 (09:00→20:47)
[2017-01-19] MEDS: POTASSIUM CHLORIDE 20 MEQ CONTROLLED RELEASE TAB PO SCH ×2 (09:00→20:47)
[2017-01-19] MEDS: SODIUM CHLORIDE 0.9% FLUSH 5 ML FLUSH FLUSH SCH ×2 (09:00→20:47)
[2017-01-19] MEDS: SUCRALFATE 1 GM TAB PO SCH ×3 (09:00→17:06)
[2017-01-19] MEDS: LIPASE/PROTEASE/AMYLASE (12,000/38,000/60,000) CAP PO SCH ×3 (09:00→18:27)
[2017-01-19] MEDS: DILTIAZEM-CD 120 MG CAP ER PO SCH (09:00)
[2017-01-19 12:00] VITALS: BP 123/59; PULSE 79; RESP 18; TEMP 98.8; O2SAT 93
--- NOTE | 2017-01-19 13:51 | HHI.NPPN ---
Objective Data Data 01/18/17 01/19/17 19:00 07:00 Intake Total 0 ml 576 ml Output Total 1000 ml Balance -1000 ml 576 ml Intake Oral 0 ml 100 ml Tube Feeding 476 ml Output Urine Total 1000 ml # Voids 2 # Bowel Movements 1 0 Vital Signs Date Time Temp Pulse Resp B/P Pulse Ox O2 Delivery O2 Flow Rate FiO2 01/19/17 12:00 98.8 79 18 123/59 93 01/19/17 08:30 Room Air 01/19/17 08:00 99.4 85 18 137/61 94 01/19/17 04:00 100.0 95 18 133/65 92 01/19/17 00:00 98.8 82 18 136/65 93 01/18/17 23:30 79 01/18/17 23:10 Room Air 01/18/17 20:00 98.4 92 18 130/63 92 01/18/17 16:00 98.9 88 20 172/74 95 -: 01/18/17 0556 01/18/17 0556 Physical Exam General Appearance: Well Developed Neck Neck Exam: Neck Supple Pulmonary Resp Exam: Clear Bilaterally, Breath Sounds Equal Cardiology CV Exam: Regular Gastrointestinal/Abdomen GI Exam: Soft Integumentary Skin Exam: Clear Extremeties Extremities Exam: No Edema Neurologic Neuro Exam: Alert Assessment/Plan Problem List: (1) Acute renal insufficiency Plan: Patient has slow improvement in renal functions cr 2.97 and ivf D5 with KCL nausea/vomiting contributing G- J tube continue to hydrate follow BMP (2) CKD (chronic kidney disease) stage 4, GFR 15-29 ml/min Plan: Will monitor kidney situation (3) Chronic recurrent pancreatitis Plan: Nothing by mouth and keep her hydrated (4) Leukocytosis Plan: She may have underlying infection and although pancreatitis can give you high white blood cell count urine cultures so so far has not grown any specific organism (5) Anemia Plan: Continue to monitor and hydrate her Arnaldo Melara MD Jan 19, 2017 13:51
--- NOTE | 2017-01-19 14:48 | HHI.GIFU ---
Subjective Remarks Resting in bed. States she is feeling better. So far tolerating TF, thinks she can try full liquids today. Objective Vitals I&O Vital Signs Date Time Temp Pulse Resp B/P Pulse Ox O2 Delivery O2 Flow Rate FiO2 01/19/17 12:00 98.8 79 18 123/59 93 01/19/17 08:30 Room Air 01/19/17 08:00 99.4 85 18 137/61 94 01/19/17 04:00 100.0 95 18 133/65 92 01/19/17 00:00 98.8 82 18 136/65 93 01/18/17 23:30 79 01/18/17 23:10 Room Air 01/18/17 20:00 98.4 92 18 130/63 92 01/18/17 16:00 98.9 88 20 172/74 95 I/O 01/18/17 01/18/17 01/18/17 01/19/17 01/19/17 01/19/17 07:00 15:00 23:00 07:00 15:00 23:00 Intake Total 247 ml 0 ml 127 ml 449 ml Output Total 1000 ml Balance 247 ml -1000 ml 127 ml 449 ml Intake Oral 0 ml 0 ml 100 ml IV Total 247 ml Tube Feeding 127 ml 349 ml Output Urine Total 1000 ml # Voids 0 2 # Bowel Movements 1 0 0 Imaging Last Impressions Gastrostomy Tube Placement 01/18/17 0000 Signed Impressions: Service Date/Time: Wednesday, January 18, 2017 11:08 - CONCLUSION: Uncomplicated gastrojejunostomy tube placement as above. Ryan Stuart MD Chest X-Ray 01/14/17 0000 Signed Impressions: Service Date/Time: January 15:55 - CONCLUSION: Normal examination. Sanford Avina MD Abdomen/Pelvis CT 01/11/17 0000 Signed Impressions: Service Date/Time: Wednesday, January 11, 2017 10:25 - CONCLUSION: 1. Very mild induration around the pancreas, consistent with history of pancreatitis. 2. Biliary stent in place as described above. 3. I do not see an etiology for the patient's abdominal pain. Jamie Tabor MD FACR Physical Exam HEENT: Normocephalic; atraumatic; no jaundice. Throat is clear. NECK: Neck is supple CHEST: CTA CARDIAC: RRR ABDOMEN: Soft, nondistended, mild tenderness no rebound or guarding; no hepatosplenomegaly; bowel sounds are present in all four quadrants. G/J tube mild tenderness, no drainage. EXTREMITIES: No clubbing, cyanosis, or edema. SKIN: Normal; no rash; no jaundice. SERVICE WRITER ADVISOR: No focal deficits; alert and oriented times three. Assessment and Plan Plan ASSESSMENT: - Recurrent idiopathic pancreatitis. She has had extensive workup for this in past with MRCP, ERCP with sphincterotomy for suspected sphincter dysfunction vs. microlithiasis, Ig4 level, EUS, Triglycerides, and tertiary evaluation. She had EGD with biopsy, GJ tube repositioning, ERCP with stent removal, biliary dilation with CRE balloon, balloon extraction, and wall stent, EUS (02/12/16)------> unremarkable EUS of the pancrease, a stent was noted in the CBD, but otherwise was normal, prior sphincterotomy but otherwise normal, distal cbd stricture, smooth benign, this was dilated with CRE balloon 10mm post dil still significant narrowing and as such a full cover 10 dominican 6 cm wall stent was placed, positioning satisfactory, prior to stent placement a 15 mm balloon was used to clear the bile duct and no stones were noted, intrahepatic biliary tree normal, not dilated, normal esophagus, hiatal hernia, large antral ulcer, clean based, this was biopsied. Pathology of antral ulcer with predominantly necroinflammatory exudate consistent with ulceration, with rare detached fragments of benign gastric mucosa. Her symptoms improved at that time with steroids and her G/J tube was removed. CT scan abdomen and pelvis (01/11/17)-----> 1. Very mild induration around the pancreas, consistent with history of pancreatitis. 2. Biliary stent in place as described above. 3. I do not see an etiology for the patient's abdominal pain. S/P G/J tube. Tolerating Jevity 1.5 at GR 50cc/hr. Full liquids. PPI. Creon. - Leukocytosis. Blood cx no growth 5 days. Urine cx with 50-100,000 CFU/mL mixed ev. - WAYNE, per renal/primary - Anemia. EGD (12/16/16)---> small hiatal hernia, antral nodule. Pathology reactive/chemical gastropathy. Prior to this she had EGD/Colonoscopy (10/04/15) and this revealed an ulcer at the GE junction, thick gastric fold at pre-pyloric area, mild gastritis, duodenal inflammation in the bulb and second portion of the duodenum, small polyp in the ascending colon, and moderate internal hemorrhoids. Pathology revealed gastric antral mucosal biopsies with mild chronic gastritis exhibiting histopathologic features consistent with chemical gastropathy as may be seen with bile reflux, nonsteroidal anti-inflammatory drugs or other drug induced disease negative for intestinal metaplasia and dysplasia, gricelda stain negative for helicobacter, gastroesophageal mucosal biopsy with inflammatory changes consistent with reflux negative for intestinal metaplasia and dysplasia, colonic mucosa with adenomatous polyp. - Malnutrition with low albumin. Now agreeable for G/J tube placed. Will consult IR to have this placed Wednesday. PLAN: - Full liquids with Jevity 1.5 at GR of 50cc/hr via J tube. - Cont. PPI - Cont. Creon - Cont. Albumin - Cont. Zofran prn - Pain management per primary - Supportive care - Pt seen and examined by Dr. Hernandez and myself and this note is written on his behalf Edwina Dodge Jan 19, 2017 14:48
[2017-01-19 16:00] VITALS: BP 136/72; PULSE 85; RESP 18; TEMP 99; O2SAT 93
[2017-01-19 19:57] VITALS: BP 123/63; PULSE 86; RESP 24; TEMP 97.4; O2SAT 93
[2017-01-20] VITALS: BP 120/69; PULSE 80; RESP 18; TEMP 99.5; O2SAT 98
[2017-01-20] MEDS: ONDANSETRON HCL 4 MG/2 ML VIAL IVP PRN ×4 (02:05→12:53)
[2017-01-20] MEDS: HYDROmorphone HCL PF 1 MG/ML VIAL IV PUSH PRN ×4 (02:33→22:10)
[2017-01-20 04:00] VITALS: BP 137/74; PULSE 87; RESP 18; TEMP 98.6; O2SAT 100
[2017-01-20 07:56] LABS: BICARBONATE 23.6 MEQ/L (21.0-32.0); POTASSIUM 3.7 MEQ/L (3.5-5.1)
[2017-01-20 08:00] VITALS: BP 161/80; PULSE 91; RESP 18; TEMP 98.8; O2SAT 97
[2017-01-20] MEDS: POTASSIUM CHLORIDE 20 MEQ CONTROLLED RELEASE TAB PO SCH (09:00)
--- NOTE | 2017-01-20 09:15 | HHI.PR ---
Subjective Remarks still with some pain that she now thinks might be gj tube related. Objective Vitals heart reg lung cta abd gj tube ext no edema Vital Signs Date Time Temp Pulse Resp B/P Pulse Ox O2 Delivery O2 Flow Rate FiO2 01/20/17 04:00 98.6 87 18 137/74 100 01/20/17 00:00 99.5 80 18 120/69 98 01/19/17 20:55 Room Air 01/19/17 19:57 97.4 86 24 123/63 93 01/19/17 16:00 99.0 85 18 136/72 93 01/19/17 12:00 98.8 79 18 123/59 93 01/19/17 01/19/17 01/20/17 15:00 23:00 07:00 Intake Total 1357 ml 616 ml 500 ml Balance 1357 ml 616 ml 500 ml Intake Oral 360 ml 240 ml 100 ml IV Total 508 ml Tube Feeding 489 ml 376 ml 400 ml # Voids 2 1 1 # Bowel Movements 0 1 0 Result Diagram: 01/18/17 0556 01/20/17 0620 Imaging Last Impressions Chest X-Ray 01/11/17 0716 Signed Impressions: Service Date/Time: Wednesday, January 11, 2017 07:23 - CONCLUSION: No acute disease. Yunier Santana MD Abdomen/Pelvis CT 01/11/17 0000 Signed Impressions: Service Date/Time: Wednesday, January 11, 2017 10:25 - CONCLUSION: 1. Very mild induration around the pancreas, consistent with history of pancreatitis. 2. Biliary stent in place as described above. 3. I do not see an etiology for the patient's abdominal pain. Jamie Tabor MD FACR A/P Problem List: (1) Chronic recurrent pancreatitis Status: Acute Plan: - comgmt with GI - Pt has had numerous previous admissions d/t recurrent pancreatis. - Pt has followed closely for many years with [facility] and has also been seen at the [facility]. - Pt was last admitted d/t recurrent pancreatitis 11/13/15-01/02/16 and then again for same symptoms 12/14/16-12/26/16. - Pt typically has a reactive leukocytosis with her pancreatitis, and this has been seen on previous admissions. - She previously underwent ERCP with stent placement 11/22/15. Pt had G/J tube placed on 11/28/15, but this was removed. - Most recently she underwent repeat ERCP (12/11/15) with biliary stent exchange with placement of a 10 khmer, 9 cm long plastic stent. - She was actually given steroids at that time with symptomatic improvement. admitted with recurrent pancreatitis and ramón/ckd - Pt had fever of 103 on 01/13 and WBC count increased. WBC down to 12.0 (01/16/17) ..felt related to acute pancreatitis. - Blood cultures (01/11) with NO growth at 5 days - Repeat blood cultures (01/13) NGTD -GJ tube placed on 01/18. TF started. plan to d/c home 1 to2 days with h[facility] and nightime continuous tf -cont ivf until cr back to baseline. replace lytes -dvt prophylaxis - narcotics prn - Creon, Protonix (2) Leukocytosis Status: Acute Plan: - improving - Pt has pattern of leukocytosis which correlates with acute episodes of pancreatitis - UA at admission was abnormal but urine culture indicated probable contaminants - Blood cultures (01/11) with no growth x 5 days - She has been having fevers intermittently and WBC now decreased to 11.4 () unlikely infection and that this is most likely related to her pancreatitis. - Repeat blood cultures (01/13) with no growth x 4 day - CXR (01/14) was normal (3) Acute on chronic kidney disease, stage 3 Status: Chronic Plan: - comgmt with Nephrology - Creatinine trending down. - Appreciate Nephrology consultation for further evaluation. Feel that this is likely related to dehydration. - Previous Renal US (12/17/16) --> Echogenic kidneys which can be seen in medical renal disease, bilateral renal cysts, echogenic splenic lesion likely benign and may be related to hemangioma, hypoechoic lesion on the right mid kidney may be related to a complex cyst. (4) HTN (hypertension) Status: Chronic Plan: - metoprolol, cardizem CD (5) Anxiety Status: Chronic Problem Qualifiers (1) HTN (hypertension): Qualified Code: I10 - Essential hypertension Bryan Quezada MD Jan 20, 2017 09:15
[2017-01-20] MEDS: SUCRALFATE 1 GM TAB PO SCH ×3 (09:42→16:21)
[2017-01-20] MEDS: LIPASE/PROTEASE/AMYLASE (12,000/38,000/60,000) CAP PO SCH ×3 (09:42→18:30)
[2017-01-20] MEDS: METOPROLOL TARTRATE 25 MG TAB PO SCH ×2 (09:42→21:15)
[2017-01-20] MEDS: DILTIAZEM-CD 120 MG CAP ER PO SCH (09:42)
[2017-01-20] MEDS: SODIUM CHLORIDE 0.9% FLUSH 5 ML FLUSH FLUSH SCH ×2 (09:43→21:15)
[2017-01-20] MEDS: PANTOPRAZOLE SOD 40 MG DELAYED RELEASE TAB PO SCH ×2 (09:43→21:15)
[2017-01-20] MEDS ORDERED: KANGAROO JOEY P1 MIS (10:10)
--- NOTE | 2017-01-20 11:12 | HHI.GIFU ---
Subjective Remarks Pt reports that she is doing much better. Mild tenderness at G/J tube site, but not having significant abdominal pain. Tolerating TF. Objective Vitals I&O Vital Signs Date Time Temp Pulse Resp B/P Pulse Ox O2 Delivery O2 Flow Rate FiO2 01/20/17 09:45 18 01/20/17 08:00 98.8 91 18 161/80 97 01/20/17 04:00 98.6 87 18 137/74 100 01/20/17 00:00 99.5 80 18 120/69 98 01/19/17 20:55 Room Air 01/19/17 19:57 97.4 86 24 123/63 93 01/19/17 16:00 99.0 85 18 136/72 93 01/19/17 12:00 98.8 79 18 123/59 93 I/O 01/19/17 01/19/17 01/19/17 01/20/17 01/20/17 01/20/17 07:00 15:00 23:00 07:00 15:00 23:00 Intake Total 449 ml 1357 ml 616 ml 500 ml Balance 449 ml 1357 ml 616 ml 500 ml Intake Oral 100 ml 360 ml 240 ml 100 ml IV Total 508 ml Tube Feeding 349 ml 489 ml 376 ml 400 ml # Voids 2 2 1 1 # Bowel Movements 0 0 1 0 Laboratory Laboratory Tests Test 01/20/17 06:20 Sodium Level 145 Potassium Level 3.7 Chloride Level 111 Carbon Dioxide Level 23.6 Anion Gap 10 Blood Urea Nitrogen 28 Creatinine 3.01 Estimat Glomerular Filtration 18 Rate Random Glucose 133 Calcium Level 8.3 Imaging Last Impressions Gastrostomy Tube Placement 01/18/17 0000 Signed Impressions: Service Date/Time: Wednesday, January 18, 2017 11:08 - CONCLUSION: Uncomplicated gastrojejunostomy tube placement as above. Ryan Stuart MD Chest X-Ray 01/14/17 0000 Signed Impressions: Service Date/Time: January 15:55 - CONCLUSION: Normal examination. Sanford Avina MD Abdomen/Pelvis CT 01/11/17 0000 Signed Impressions: Service Date/Time: Wednesday, January 11, 2017 10:25 - CONCLUSION: 1. Very mild induration around the pancreas, consistent with history of pancreatitis. 2. Biliary stent in place as described above. 3. I do not see an etiology for the patient's abdominal pain. Jamie Tabor MD FACR Physical Exam HEENT: Normocephalic; atraumatic; no jaundice. Throat is clear. NECK: Neck is supple CHEST: CTA CARDIAC: RRR ABDOMEN: Soft, nondistended, mild tenderness no rebound or guarding; no hepatosplenomegaly; bowel sounds are present in all four quadrants. G/J tube mild tenderness, no drainage. EXTREMITIES: No clubbing, cyanosis, or edema. SKIN: Normal; no rash; no jaundice. GRAPHICS SOFTWARE ENGINEER: No focal deficits; alert and oriented times three. Assessment and Plan Plan ASSESSMENT: - Recurrent idiopathic pancreatitis. She has had extensive workup for this in past with MRCP, ERCP with sphincterotomy for suspected sphincter dysfunction vs. microlithiasis, Ig4 level, EUS, Triglycerides, and tertiary evaluation. She had EGD with biopsy, GJ tube repositioning, ERCP with stent removal, biliary dilation with CRE balloon, balloon extraction, and wall stent, EUS (02/12/16)------> unremarkable EUS of the pancrease, a stent was noted in the CBD, but otherwise was normal, prior sphincterotomy but otherwise normal, distal cbd stricture, smooth benign, this was dilated with CRE balloon 10mm post dil still significant narrowing and as such a full cover 10 tajik 6 cm wall stent was placed, positioning satisfactory, prior to stent placement a 15 mm balloon was used to clear the bile duct and no stones were noted, intrahepatic biliary tree normal, not dilated, normal esophagus, hiatal hernia, large antral ulcer, clean based, this was biopsied. Pathology of antral ulcer with predominantly necroinflammatory exudate consistent with ulceration, with rare detached fragments of benign gastric mucosa. Her symptoms improved at that time with steroids and her G/J tube was removed. CT scan abdomen and pelvis (01/11/17)-----> 1. Very mild induration around the pancreas, consistent with history of pancreatitis. 2. Biliary stent in place as described above. 3. I do not see an etiology for the patient's abdominal pain. S/P G/J tube. Tolerating Jevity 1.5 at GR 50cc/hr. Full liquids. PPI. Creon. Seems to be doing well with this. Will ask customs and immigration officer for night time feeding rate. - Leukocytosis. Blood cx no growth 5 days. Urine cx with 50-100,000 CFU/mL mixed ev. - WAYNE, per renal/primary - Anemia. EGD (12/16/16)---> small hiatal hernia, antral nodule. Pathology reactive/chemical gastropathy. Prior to this she had EGD/Colonoscopy (10/04/15) and this revealed an ulcer at the GE junction, thick gastric fold at pre-pyloric area, mild gastritis, duodenal inflammation in the bulb and second portion of the duodenum, small polyp in the ascending colon, and moderate internal hemorrhoids. Pathology revealed gastric antral mucosal biopsies with mild chronic gastritis exhibiting histopathologic features consistent with chemical gastropathy as may be seen with bile reflux, nonsteroidal anti-inflammatory drugs or other drug induced disease negative for intestinal metaplasia and dysplasia, gricelda stain negative for helicobacter, gastroesophageal mucosal biopsy with inflammatory changes consistent with reflux negative for intestinal metaplasia and dysplasia, colonic mucosa with adenomatous polyp. - Malnutrition with low albumin. Now agreeable for G/J tube placed. Will consult IR to have this placed Wednesday. PLAN: - Full liquids with Jevity 1.5 at GR of 50cc/hr via J tube. - Tool Design Draftsperson for HS feedings rate - Cont. PPI - Cont. Creon - Cont. Albumin - Cont. Zofran prn - Pain management per primary - Supportive care - Pt seen and examined by Dr. Hernandez and myself and this note is written on his behalf Edwina Dodge Jan 20, 2017 11:12
[2017-01-20 11:40] VITALS: BP 143/78; PULSE 105; RESP 18; TEMP 97.3; O2SAT 97
[2017-01-20] MEDS: ACETAMINOPHEN/HYDROcodone 325 MG/5 MG TAB PO PRN (13:03)
--- NOTE | 2017-01-20 14:17 | HHI.NPPN ---
Objective Data Data 01/19/17 01/20/17 19:00 07:00 Intake Total 1357 ml 1116 ml Balance 1357 ml 1116 ml Intake Oral 360 ml 340 ml IV Total 508 ml Tube Feeding 489 ml 776 ml # Voids 2 2 # Bowel Movements 0 1 Vital Signs Date Time Temp Pulse Resp B/P Pulse Ox O2 Delivery O2 Flow Rate FiO2 01/20/17 11:40 97.3 105 18 143/78 97 01/20/17 09:45 18 01/20/17 08:00 98.8 91 18 161/80 97 01/20/17 04:00 98.6 87 18 137/74 100 01/20/17 00:00 99.5 80 18 120/69 98 01/19/17 20:55 Room Air 01/19/17 19:57 97.4 86 24 123/63 93 01/19/17 16:00 99.0 85 18 136/72 93 -: 01/18/17 0556 01/20/17 0620 Physical Exam General Appearance: Well Developed Neck Neck Exam: Neck Supple Pulmonary Resp Exam: Clear Bilaterally, Breath Sounds Equal Cardiology CV Exam: Regular Gastrointestinal/Abdomen GI Exam: Soft Integumentary Skin Exam: Clear Extremeties Extremities Exam: No Edema Neurologic Neuro Exam: Alert Assessment/Plan Problem List: (1) Acute renal insufficiency Plan: Patient has CKD baseline Cr changed renal functions cr 3.01 nausea/vomiting contributing G- J tube continue to TF may use Nepro follow BMP (2) CKD (chronic kidney disease) stage 4, GFR 15-29 ml/min Plan: Will monitor kidney situation (3) Chronic recurrent pancreatitis Plan: getting TF (4) Leukocytosis Plan: She has neg cultures (5) Anemia Plan: Continue to monitor and hydrate her Arnaldo Melara MD Jan 20, 2017 14:17
[2017-01-20 16:00] VITALS: BP 138/88; PULSE 94; RESP 20; TEMP 98.4; O2SAT 96
[2017-01-20 20:00] VITALS: BP 129/75; PULSE 92; RESP 20; TEMP 99.1; O2SAT 100
[2017-01-20] MEDS: SODIUM CHLORIDE 0.9% FLUSH 5 ML FLUSH FLUSH PRN (22:09)
[2017-01-21] VITALS: BP 143/65; PULSE 79; RESP 19; TEMP 98.8; O2SAT 93
[2017-01-21] MEDS: ONDANSETRON HCL 4 MG/2 ML VIAL IVP PRN ×3 (02:37→19:05)
[2017-01-21] MEDS: ACETAMINOPHEN/HYDROcodone 325 MG/5 MG TAB PO PRN ×3 (02:37→19:05)
[2017-01-21 04:00] VITALS: BP 154/72; PULSE 89; RESP 19; TEMP 98; O2SAT 100
[2017-01-21] MEDS: HYDROmorphone HCL PF 1 MG/ML VIAL IV PUSH PRN ×3 (06:58→21:18)
[2017-01-21 08:00] VITALS: BP 151/65; PULSE 91; RESP 18; TEMP 98.8; O2SAT 95
--- NOTE | 2017-01-21 09:16 | HHI.PR ---
Subjective Remarks intermittent pains...currently seems calm. Objective Vitals heart reg lung cta abd gj tube. bs. nd ext no edema Vital Signs Date Time Temp Pulse Resp B/P Pulse Ox O2 Delivery O2 Flow Rate FiO2 01/21/17 08:00 98.8 91 18 151/65 95 01/21/17 07:50 18 01/21/17 04:00 98.0 89 19 154/72 100 01/21/17 00:00 98.8 79 19 143/65 93 01/20/17 20:00 99.1 92 20 129/75 100 01/20/17 16:00 98.4 94 20 138/88 96 01/20/17 16:00 96 Room Air 01/20/17 15:00 20 01/20/17 11:40 97.3 105 18 143/78 97 01/20/17 01/20/17 01/21/17 15:00 23:00 07:00 Intake Total 1640 ml 568 ml Output Total 250 ml Balance 1640 ml 318 ml Intake Oral 240 ml 120 ml Tube Feeding 1380 ml 448 ml Tube Irrigant 20 ml Output Urine Total 250 ml # Voids 1 2 # Bowel Movements 0 1 Result Diagram: 01/18/17 0556 01/20/17 0620 Imaging Last Impressions Chest X-Ray 01/11/17 0716 Signed Impressions: Service Date/Time: Wednesday, January 11, 2017 07:23 - CONCLUSION: No acute disease. Yunier Santana MD Abdomen/Pelvis CT 01/11/17 0000 Signed Impressions: Service Date/Time: Wednesday, January 11, 2017 10:25 - CONCLUSION: 1. Very mild induration around the pancreas, consistent with history of pancreatitis. 2. Biliary stent in place as described above. 3. I do not see an etiology for the patient's abdominal pain. Jamie Tabor MD FACR A/P Problem List: (1) Chronic recurrent pancreatitis Status: Acute Plan: - comgmt with GI - Pt has had numerous previous admissions d/t recurrent pancreatis. - Pt has followed closely for many years with [facility] and has also been seen at the [facility]. - Pt was last admitted d/t recurrent pancreatitis 11/13/15-01/02/16 and then again for same symptoms 12/14/16-12/26/16. - Pt typically has a reactive leukocytosis with her pancreatitis, and this has been seen on previous admissions. - She previously underwent ERCP with stent placement 11/22/15. Pt had G/J tube placed on 11/28/15, but this was removed. - Most recently she underwent repeat ERCP (12/11/15) with biliary stent exchange with placement of a 10 tristanian, 9 cm long plastic stent. - She was actually given steroids at that time with symptomatic improvement. admitted with recurrent pancreatitis and ramón/ckd - Pt had fever of 103 on 01/13 and WBC count increased. WBC down to 12.0 (01/16/17) ..felt related to acute pancreatitis. - Blood cultures (01/11) with NO growth at 5 days - Repeat blood cultures (01/13) NGTD -GJ tube placed on 01/18. TF started. plan to d/c home over weekend with hhc and nightime continuous tf -cont ivf until cr back to baseline. replace lytes -dvt prophylaxis - narcotics prn - Creon, Protonix (2) Leukocytosis Status: Acute Plan: - improving - Pt has pattern of leukocytosis which correlates with acute episodes of pancreatitis - UA at admission was abnormal but urine culture indicated probable contaminants - Blood cultures (01/11) with no growth x 5 days - She has been having fevers intermittently and WBC now decreased to 11.4 () unlikely infection and that this is most likely related to her pancreatitis. - Repeat blood cultures (01/13) with no growth x 4 day - CXR (01/14) was normal (3) Acute on chronic kidney disease, stage 3 Status: Chronic Plan: - comgmt with Nephrology - Creatinine trending down. - Appreciate Nephrology consultation for further evaluation. Feel that this is likely related to dehydration. - Previous Renal US (12/17/16) --> Echogenic kidneys which can be seen in medical renal disease, bilateral renal cysts, echogenic splenic lesion likely benign and may be related to hemangioma, hypoechoic lesion on the right mid kidney may be related to a complex cyst. (4) HTN (hypertension) Status: Chronic Plan: - metoprolol, cardizem CD (5) Anxiety Status: Chronic Problem Qualifiers (1) HTN (hypertension): Qualified Code: I10 - Essential hypertension Bryan Quezada MD Jan 21, 2017 09:15
[2017-01-21] MEDS ORDERED: JEVILIQ12 JT (09:26)
[2017-01-21] MEDS: DILTIAZEM-CD 120 MG CAP ER PO SCH (09:41)
[2017-01-21] MEDS: PANTOPRAZOLE SOD 40 MG DELAYED RELEASE TAB PO SCH ×2 (09:42→21:18)
[2017-01-21] MEDS: METOPROLOL TARTRATE 25 MG TAB PO SCH ×2 (09:42→21:18)
[2017-01-21] MEDS: LIPASE/PROTEASE/AMYLASE (12,000/38,000/60,000) CAP PO SCH ×3 (09:42→16:38)
[2017-01-21] MEDS: SUCRALFATE 1 GM TAB PO SCH ×3 (09:42→16:37)
[2017-01-21] MEDS: SODIUM CHLORIDE 0.9% FLUSH 5 ML FLUSH FLUSH SCH ×2 (09:43→21:18)
[2017-01-21 12:00] VITALS: BP 149/78; PULSE 79; RESP 18; TEMP 98.5; O2SAT 100
--- NOTE | 2017-01-21 15:18 | HHI.GIFU ---
Subjective Remarks Resting in bed. States her pain is controlled. Tolerating full liquids. TF transitioned to night time feedings. (Edwina Dodge) Objective Vitals I&O Vital Signs Date Time Temp Pulse Resp B/P Pulse Ox O2 Delivery O2 Flow Rate FiO2 01/21/17 12:09 18 01/21/17 12:00 98.5 79 18 149/78 100 01/21/17 08:00 98.8 91 18 151/65 95 01/21/17 07:50 18 01/21/17 04:00 98.0 89 19 154/72 100 01/21/17 00:00 98.8 79 19 143/65 93 01/20/17 20:00 99.1 92 20 129/75 100 01/20/17 16:00 98.4 94 20 138/88 96 01/20/17 16:00 96 Room Air I/O 01/20/17 01/20/17 01/20/17 01/21/17 01/21/17 01/21/17 07:00 15:00 23:00 07:00 15:00 23:00 Intake Total 500 ml 1640 ml 568 ml Output Total 250 ml Balance 500 ml 1640 ml 318 ml Intake Oral 100 ml 240 ml 120 ml Tube Feeding 400 ml 1380 ml 448 ml Tube Irrigant 20 ml Output Urine Total 250 ml # Voids 1 1 2 # Bowel Movements 0 0 1 Imaging Last Impressions Gastrostomy Tube Placement 01/18/17 0000 Signed Impressions: Service Date/Time: Wednesday, January 18, 2017 11:08 - CONCLUSION: Uncomplicated gastrojejunostomy tube placement as above. Ryan Stuart MD Chest X-Ray 01/14/17 0000 Signed Impressions: Service Date/Time: January 15:55 - CONCLUSION: Normal examination. Sanford Avina MD Abdomen/Pelvis CT 01/11/17 0000 Signed Impressions: Service Date/Time: Wednesday, January 11, 2017 10:25 - CONCLUSION: 1. Very mild induration around the pancreas, consistent with history of pancreatitis. 2. Biliary stent in place as described above. 3. I do not see an etiology for the patient's abdominal pain. Jamie Tabor MD FACR Physical Exam HEENT: Normocephalic; atraumatic; no jaundice. Throat is clear. NECK: Neck is supple CHEST: CTA CARDIAC: RRR ABDOMEN: Soft, nondistended, mild tenderness no rebound or guarding; no hepatosplenomegaly; bowel sounds are present in all four quadrants. G/J tube mild tenderness, no drainage. EXTREMITIES: No clubbing, cyanosis, or edema. SKIN: Normal; no rash; no jaundice. GRAIN WAFER MACHINE OPERATOR: No focal deficits; alert and oriented times three. (DodgeEdwina Nathanissa [facility]) Assessment and Plan Plan ASSESSMENT: - Recurrent idiopathic pancreatitis. She has had extensive workup for this in past with MRCP, ERCP with sphincterotomy for suspected sphincter dysfunction vs. microlithiasis, Ig4 level, EUS, Triglycerides, and tertiary evaluation. She had EGD with biopsy, GJ tube repositioning, ERCP with stent removal, biliary dilation with CRE balloon, balloon extraction, and wall stent, EUS (02/12/16)------> unremarkable EUS of the pancrease, a stent was noted in the CBD, but otherwise was normal, prior sphincterotomy but otherwise normal, distal cbd stricture, smooth benign, this was dilated with CRE balloon 10mm post dil still significant narrowing and as such a full cover 10 yemeni 6 cm wall stent was placed, positioning satisfactory, prior to stent placement a 15 mm balloon was used to clear the bile duct and no stones were noted, intrahepatic biliary tree normal, not dilated, normal esophagus, hiatal hernia, large antral ulcer, clean based, this was biopsied. Pathology of antral ulcer with predominantly necroinflammatory exudate consistent with ulceration, with rare detached fragments of benign gastric mucosa. Her symptoms improved at that time with steroids and her G/J tube was removed. CT scan abdomen and pelvis (01/11/17)-----> 1. Very mild induration around the pancreas, consistent with history of pancreatitis. 2. Biliary stent in place as described above. 3. I do not see an etiology for the patient's abdominal pain. S/P G/J tube. Outreach Manager following, recommends Jevity 1.5 at 75cc/hr from 9pm-7am. Full liquids. PPI. Creon. - Leukocytosis. Blood cx no growth 5 days. Urine cx with 50-100,000 CFU/mL mixed ev. - WAYNE, per renal/primary - Anemia. EGD (12/16/16)---> small hiatal hernia, antral nodule. Pathology reactive/chemical gastropathy. Prior to this she had EGD/Colonoscopy (10/04/15) and this revealed an ulcer at the GE junction, thick gastric fold at pre-pyloric area, mild gastritis, duodenal inflammation in the bulb and second portion of the duodenum, small polyp in the ascending colon, and moderate internal hemorrhoids. Pathology revealed gastric antral mucosal biopsies with mild chronic gastritis exhibiting histopathologic features consistent with chemical gastropathy as may be seen with bile reflux, nonsteroidal anti-inflammatory drugs or other drug induced disease negative for intestinal metaplasia and dysplasia, gricelda stain negative for helicobacter, gastroesophageal mucosal biopsy with inflammatory changes consistent with reflux negative for intestinal metaplasia and dysplasia, colonic mucosa with adenomatous polyp. - Malnutrition with low albumin. Now agreeable for G/J tube placed. Will consult IR to have this placed Wednesday. PLAN: - Full liquids - Jevity 1.5 at 75cc/hr, from 9pm-7am - Cont. PPI - Cont. Creon - Cont. Albumin - Cont. Zofran prn - Pain management per primary - FU MEME 2 weeks - Pt seen and examined by Dr. Hernandez and myself and this note is written on his behalf (Edwina Dodge) Physician Comments patient was seen and examined, agree with above note, patient has low grade fever, (Patrick Hernandez MD) Edwina Dodge Jan 21, 2017 15:18 Patrick Hernandez MD Jan 21, 2017 18:19 Edwina Dodge Jan 21, 2017 15:18 Patrick Hernandez MD Jan 21, 2017 18:19
[2017-01-21 16:00] VITALS: BP 141/75; PULSE 85; RESP 18; TEMP 98.8; O2SAT 96
--- NOTE | 2017-01-21 16:55 | PQ ---
Physician Query Response Document PATIENT: TAD CLOUD : 1935 ADMIT DATE: 01/11/2017 9:55 AM DISCH DATE: RESPONDING PROVIDER #: Rbraithw QUERY TEXT: Conflicting Documentation Clarification A single mention or documentation of multiple diagnoses for the same clinical presentation appears in the record. Please clarify the diagnosis/diagnoses. Please also document if the condition is: -- Confirmed and current -- Confirmed, treated and resolved -- Ruled out -- Other, please specify The patient's Clinical Indicators include: All Attending progress notes states : Chronic Kidney Disease Stage 3 All Nephrology progress notes states : Chronic Kidney Disease Stage 4 Query created by: Christianne Peralta on 01/19/2017 10:00 AM RESPONSE TEXT: Pt has ckd stage 4. QUERY TEXT: Anemia Type Anemia is documented in the Medical Record. Please specify the cause (includes suspected or probable cause) Such as: -- Due to acute blood loss -- Due to chronic blood loss -- Due to iron deficiency -- Due to postoperative blood loss -- Due to chronic disease -- Other, please specify The patient's Clinical Indicators include: According to Dr. Melara Consultation Note and progress notes the patient has a history of Anemia. He also included Anemia in his diagnosis. Consultation note 01/13/17: (5) Anemia Plan: Continue to monitor and hydrate her 01/11 01/12 01/13 01/14 01/15 01/16 01/17 3 HBG 11.3 9.7 8.6 8.9 9.3 8.2 8.3 7. 6 HCT 35.9 30.0 27.7 27.4 29.1 25.3 26.1 23.9 RBC 4.19 3.53 3.27 3.26 3.46 3.02 3.08 2.87 Query created by: Christianne Peralta on 01/19/2017 10:06 AM RESPONSE TEXT: Pt has anemia of chronic disease. Electronically signed by: Bryan Quezada MD 01/21/2017 4:52 PM
--- NOTE | 2017-01-21 18:31 | HHI.NPPN ---
Subjective History of Present Illness 81 year old with CKD 4 ,Recurrent pancreatitis Objective Data Data 01/20/17 01/21/17 19:00 07:00 Intake Total 600 ml 1608 ml Output Total 250 ml Balance 600 ml 1358 ml Intake Oral 360 ml Tube Feeding 600 ml 1228 ml Tube Irrigant 20 ml Output Urine Total 250 ml # Voids 3 # Bowel Movements 1 Vital Signs Date Time Temp Pulse Resp B/P Pulse Ox O2 Delivery O2 Flow Rate FiO2 01/21/17 16:34 18 01/21/17 16:00 98.8 85 18 141/75 96 01/21/17 12:09 18 01/21/17 12:00 98.5 79 18 149/78 100 01/21/17 08:00 98.8 91 18 151/65 95 01/21/17 04:00 98.0 89 19 154/72 100 01/21/17 00:00 98.8 79 19 143/65 93 01/20/17 20:00 99.1 92 20 129/75 100 -: 01/18/17 0556 01/20/17 0620 Physical Exam General Appearance: Well Developed Neck Neck Exam: Neck Supple Pulmonary Resp Exam: Clear Bilaterally, Breath Sounds Equal Cardiology CV Exam: Regular Gastrointestinal/Abdomen GI Exam: Soft Integumentary Skin Exam: Clear Extremeties Extremities Exam: No Edema Neurologic Neuro Exam: Alert Assessment/Plan Problem List: (1) Acute renal insufficiency Plan: Patient has CKD baseline Cr changed renal functions cr 3.01 nausea/vomiting contributing G- J tube continue to TF may use Nepro follow BMP (2) CKD (chronic kidney disease) stage 4, GFR 15-29 ml/min Plan: Will monitor kidney situation (3) Chronic recurrent pancreatitis Plan: getting TF (4) Leukocytosis Plan: She has neg cultures (5) Anemia Plan: Continue to monitor check Iron Arnaldo Melara MD Jan 21, 2017 18:31
[2017-01-21 19:57] LABS: TRANSFERRIN IRON PROFILE 62 MG/DL (200-360)
[2017-01-21 20:00] VITALS: BP 151/72; PULSE 94; RESP 16; TEMP 98.7; O2SAT 96
[2017-01-22] VITALS: BP 135/69; PULSE 81; RESP 16; TEMP 98.1; O2SAT 95
[2017-01-22] MEDS: ACETAMINOPHEN/HYDROcodone 325 MG/5 MG TAB PO PRN ×3 (01:14→22:17)
[2017-01-22 04:00] VITALS: PULSE 92; RESP 16; TEMP 98.3; O2SAT 95
[2017-01-22] MEDS: HYDROmorphone HCL PF 1 MG/ML VIAL IV PUSH PRN ×2 (05:01→11:05)
[2017-01-22 06:04] LABS: AUTOMATED NEUTROPHIL # 10.8 TH/MM3 (1.8-7.7); BASOPHIL # 0.1 TH/MM3 (0-0.2); BASOPHIL % 0.5 % (0.0-2.0); EOSINOPHIL # 0.3 TH/MM3 (0-0.4); EOSINOPHIL % 2.4 % (0.0-4.0); HEMATOCRIT 24.8 % (35.0-46.0); LYMPH % 8.6 % (9.0-44.0); LYMPHOCYTE # 1.1 TH/MM3 (1.0-4.8); MEAN CELL VOLUME 81.7 FL (80.0-100.0); MONO % 6.6 % (0.0-8.0); NEUT % 81.9 % (16.0-70.0); PLATELET COUNT 562 TH/MM3 (150-450); RED BLOOD COUNT 3.03 MIL/MM3 (4.00-5.30); RED CELL DISTRIBUTION WIDTH 16.8 % (11.6-17.2); WHITE BLOOD COUNT 13.2 TH/MM3 (4.0-11.0)
[2017-01-22 06:16] LABS: HEMO FLAGS AUTO DIFF
[2017-01-22 06:25] LABS: BICARBONATE 28.3 MEQ/L (21.0-32.0); POTASSIUM 4.1 MEQ/L (3.5-5.1)
[2017-01-22] MEDS: ONDANSETRON HCL 4 MG/2 ML VIAL IVP PRN ×3 (07:06→17:35)
[2017-01-22 07:58] LABS: OVALOCYTES 1+ (NORMAL); PLATELET ESTIMATE SMEAR HIGH (NORMAL); PLATELET MORPHOLOGY NORMAL (NORMAL); SCAN/DIFF AUTO DIFF CONFIRMED
[2017-01-22 08:00] VITALS: BP 149/70; PULSE 85; RESP 18; TEMP 97; O2SAT 94
--- NOTE | 2017-01-22 08:34 | HHI.PR ---
Subjective Remarks trouble with gj tube flushing overnight. Objective Vitals heart reg lung cta abd s/nt/gj ext no edema Vital Signs Date Time Temp Pulse Resp B/P Pulse Ox O2 Delivery O2 Flow Rate FiO2 01/22/17 08:00 97.0 85 18 149/70 94 01/22/17 04:00 98.3 92 16 95 01/22/17 00:00 98.1 81 16 135/69 95 01/21/17 20:00 98.7 94 16 151/72 96 01/21/17 16:34 18 01/21/17 16:00 98.8 85 18 141/75 96 01/21/17 12:09 18 01/21/17 12:00 98.5 79 18 149/78 100 01/21/17 01/21/17 01/22/17 15:00 23:00 07:00 Intake Total 480 ml 0 ml 6 ml Output Total 600 ml Balance -120 ml 0 ml 6 ml Intake Oral 480 ml IV Total 6 ml Tube Feeding 0 ml Tube Irrigant 0 ml Output Urine Total 600 ml # Voids 3 # Bowel Movements 0 Result Diagram: 01/22/17 0537 01/22/17 0537 Imaging Last Impressions Chest X-Ray 01/11/17 0716 Signed Impressions: Service Date/Time: Wednesday, January 11, 2017 07:23 - CONCLUSION: No acute disease. Yunier Santana MD Abdomen/Pelvis CT 01/11/17 0000 Signed Impressions: Service Date/Time: Wednesday, January 11, 2017 10:25 - CONCLUSION: 1. Very mild induration around the pancreas, consistent with history of pancreatitis. 2. Biliary stent in place as described above. 3. I do not see an etiology for the patient's abdominal pain. Jamie Tabor MD FACR A/P Problem List: (1) Chronic recurrent pancreatitis Status: Acute Plan: - comgmt with GI - Pt has had numerous previous admissions d/t recurrent pancreatis. - Pt has followed closely for many years with [facility] and has also been seen at the [facility]. - Pt was last admitted d/t recurrent pancreatitis 11/13/15-01/02/16 and then again for same symptoms 12/14/16-12/26/16. - Pt typically has a reactive leukocytosis with her pancreatitis, and this has been seen on previous admissions. - She previously underwent ERCP with stent placement 11/22/15. Pt had G/J tube placed on 11/28/15, but this was removed. - Most recently she underwent repeat ERCP (12/11/15) with biliary stent exchange with placement of a 10 surinamese, 9 cm long plastic stent. - She was actually given steroids at that time with symptomatic improvement. admitted with recurrent pancreatitis and ramón/ckd - Pt had fever of 103 on 01/13 and WBC count increased. WBC down to 12.0 (01/16/17) ..felt related to acute pancreatitis. - Blood cultures (01/11) with NO growth at 5 days - Repeat blood cultures (01/13) NGTD -GJ tube placed on 01/18. TF started. plan to d/c home over weekend with hhc and nightime continuous tf -cont ivf until cr back to baseline. replace lytes -dvt prophylaxis - narcotics prn - Creon, Protonix GJ tube not functioning....will have IR evaluate today. (2) Leukocytosis Status: Acute Plan: - improving - Pt has pattern of leukocytosis which correlates with acute episodes of pancreatitis - UA at admission was abnormal but urine culture indicated probable contaminants - Blood cultures (01/11) with no growth x 5 days - She has been having fevers intermittently and WBC now decreased to 11.4 () unlikely infection and that this is most likely related to her pancreatitis. - Repeat blood cultures (01/13) with no growth x 4 day - CXR (01/14) was normal (3) Acute on chronic kidney disease, stage 3 Status: Chronic Plan: - comgmt with Nephrology - Creatinine trending down. - Appreciate Nephrology consultation for further evaluation. Feel that this is likely related to dehydration. - Previous Renal US (12/17/16) --> Echogenic kidneys which can be seen in medical renal disease, bilateral renal cysts, echogenic splenic lesion likely benign and may be related to hemangioma, hypoechoic lesion on the right mid kidney may be related to a complex cyst. (4) HTN (hypertension) Status: Chronic Plan: - metoprolol, cardizem CD (5) Anxiety Status: Chronic Problem Qualifiers (1) HTN (hypertension): Qualified Code: I10 - Essential hypertension Bryan Quezada MD Jan 22, 2017 08:34
[2017-01-22] MEDS: LIPASE/PROTEASE/AMYLASE (12,000/38,000/60,000) CAP PO SCH ×3 (08:40→17:37)
[2017-01-22] MEDS: SUCRALFATE 1 GM TAB PO SCH ×3 (08:40→17:00)
[2017-01-22] MEDS: METOPROLOL TARTRATE 25 MG TAB PO SCH ×2 (08:40→20:45)
[2017-01-22] MEDS: PANTOPRAZOLE SOD 40 MG DELAYED RELEASE TAB PO SCH ×2 (08:40→20:45)
[2017-01-22] MEDS: DILTIAZEM-CD 120 MG CAP ER PO SCH (08:40)
[2017-01-22] MEDS: SODIUM CHLORIDE 0.9% FLUSH 5 ML FLUSH FLUSH SCH ×2 (08:42→20:45)
[2017-01-22 12:00] VITALS: BP 149/70; PULSE 85; RESP 18; TEMP 98.6; O2SAT 95
--- NOTE | 2017-01-22 14:48 | HHI.GIFU ---
Subjective Remarks Resting in bed. Going to IR for malfunctioning G/J tube- clogged. States she feels about the same. (Edwina Dodge) Objective Vitals I&O Vital Signs Date Time Temp Pulse Resp B/P Pulse Ox O2 Delivery O2 Flow Rate FiO2 01/22/17 12:00 98.6 85 18 149/70 95 01/22/17 08:00 97.0 85 18 149/70 94 01/22/17 04:00 98.3 92 16 95 01/22/17 00:00 98.1 81 16 135/69 95 01/21/17 20:00 98.7 94 16 151/72 96 01/21/17 16:34 18 01/21/17 16:00 98.8 85 18 141/75 96 I/O 01/21/17 01/21/17 01/21/17 01/22/17 01/22/17 01/22/17 07:00 15:00 23:00 07:00 15:00 23:00 Intake Total 608 ml 480 ml 0 ml 6 ml Output Total 250 ml 600 ml Balance 358 ml -120 ml 0 ml 6 ml Intake Oral 120 ml 480 ml IV Total 6 ml Tube Feeding 448 ml 0 ml Tube Irrigant 40 ml 0 ml Output Urine Total 250 ml 600 ml # Voids 2 3 # Bowel Movements 1 0 Laboratory Laboratory Tests Test 01/22/17 05:37 White Blood Count 13.2 Red Blood Count 3.03 Hemoglobin 8.2 Hematocrit 24.8 Mean Corpuscular Volume 81.7 Mean Corpuscular Hemoglobin 27.0 Mean Corpuscular Hemoglobin 33.0 Concent Red Cell Distribution Width 16.8 Platelet Count 562 Mean Platelet Volume 7.9 Neutrophils (%) (Auto) 81.9 Lymphocytes (%) (Auto) 8.6 Monocytes (%) (Auto) 6.6 Eosinophils (%) (Auto) 2.4 Basophils (%) (Auto) 0.5 Neutrophils # (Auto) 10.8 Lymphocytes # (Auto) 1.1 Monocytes # (Auto) 0.9 Eosinophils # (Auto) 0.3 Basophils # (Auto) 0.1 CBC Comment AUTO DIFF Differential Comment AUTO DIFF CONFIRMED Platelet Estimate HIGH Platelet Morphology Comment NORMAL Ovalocytes 1+ Sodium Level 144 Potassium Level 4.1 Chloride Level 107 Carbon Dioxide Level 28.3 Anion Gap 9 Blood Urea Nitrogen 32 Creatinine 2.75 Estimat Glomerular Filtration 20 Rate Random Glucose 96 Calcium Level 8.6 Ferritin 551 Imaging Last Impressions Gastrostomy Tube Placement 01/18/17 0000 Signed Impressions: Service Date/Time: Wednesday, January 18, 2017 11:08 - CONCLUSION: Uncomplicated gastrojejunostomy tube placement as above. Ryan Stuart MD Chest X-Ray 01/14/17 0000 Signed Impressions: Service Date/Time: January 15:55 - CONCLUSION: Normal examination. Sanford Avina MD Abdomen/Pelvis CT 01/11/17 0000 Signed Impressions: Service Date/Time: Wednesday, January 11, 2017 10:25 - CONCLUSION: 1. Very mild induration around the pancreas, consistent with history of pancreatitis. 2. Biliary stent in place as described above. 3. I do not see an etiology for the patient's abdominal pain. Jamie Tabor MD FACR Physical Exam HEENT: Normocephalic; atraumatic; no jaundice. Throat is clear. NECK: Neck is supple CHEST: CTA CARDIAC: RRR ABDOMEN: Soft, nondistended, mild tenderness no rebound or guarding; no hepatosplenomegaly; bowel sounds are present in all four quadrants. G/J tube mild tenderness, no drainage. EXTREMITIES: No clubbing, cyanosis, or edema. SKIN: Normal; no rash; no jaundice. DIE PRESS OPERATOR: No focal deficits; alert and oriented times three. (Edwina Dodge [facility]) Assessment and Plan Plan ASSESSMENT: - Recurrent idiopathic pancreatitis. She has had extensive workup for this in past with MRCP, ERCP with sphincterotomy for suspected sphincter dysfunction vs. microlithiasis, Ig4 level, EUS, Triglycerides, and tertiary evaluation. She had EGD with biopsy, GJ tube repositioning, ERCP with stent removal, biliary dilation with CRE balloon, balloon extraction, and wall stent, EUS (02/12/16)------> unremarkable EUS of the pancrease, a stent was noted in the CBD, but otherwise was normal, prior sphincterotomy but otherwise normal, distal cbd stricture, smooth benign, this was dilated with CRE balloon 10mm post dil still significant narrowing and as such a full cover 10 kiswahili 6 cm wall stent was placed, positioning satisfactory, prior to stent placement a 15 mm balloon was used to clear the bile duct and no stones were noted, intrahepatic biliary tree normal, not dilated, normal esophagus, hiatal hernia, large antral ulcer, clean based, this was biopsied. Pathology of antral ulcer with predominantly necroinflammatory exudate consistent with ulceration, with rare detached fragments of benign gastric mucosa. Her symptoms improved at that time with steroids and her G/J tube was removed. CT scan abdomen and pelvis (01/11/17)-----> 1. Very mild induration around the pancreas, consistent with history of pancreatitis. 2. Biliary stent in place as described above. 3. I do not see an etiology for the patient's abdominal pain. S/P G/J tube. Fur Repair Inspector following, recommends Jevity 1.5 at 75cc/hr from 9pm-7am. G/J tube malfunctioning. Going to IR today. Full liquids. PPI. Creon. - Leukocytosis. Blood cx no growth 5 days. Urine cx with 50-100,000 CFU/mL mixed ev. - WAYNE, per renal/primary - Anemia. EGD (12/16/16)---> small hiatal hernia, antral nodule. Pathology reactive/chemical gastropathy. Prior to this she had EGD/Colonoscopy (10/04/15) and this revealed an ulcer at the GE junction, thick gastric fold at pre-pyloric area, mild gastritis, duodenal inflammation in the bulb and second portion of the duodenum, small polyp in the ascending colon, and moderate internal hemorrhoids. Pathology revealed gastric antral mucosal biopsies with mild chronic gastritis exhibiting histopathologic features consistent with chemical gastropathy as may be seen with bile reflux, nonsteroidal anti-inflammatory drugs or other drug induced disease negative for intestinal metaplasia and dysplasia, gricelda stain negative for helicobacter, gastroesophageal mucosal biopsy with inflammatory changes consistent with reflux negative for intestinal metaplasia and dysplasia, colonic mucosa with adenomatous polyp. - Malnutrition with low albumin. Now agreeable for G/J tube placed. Will consult IR to have this placed Wednesday. PLAN: - Going to IR today for malfunctioning G/J - Full liquids - Jevity 1.5 at 75cc/hr, from 9pm-7am - Cont. PPI - Cont. Creon - Cont. Albumin - Cont. Zofran prn - Pain management per primary - FU MEME 2 weeks - GI will sign off, please reconsult as needed - Pt seen and examined by Dr. Bravo and myself and this note is written on his behalf (Edwina Dodge) Physician Comments Seen and examined with KILLIAN, g/j tube readjusted today. Monitor labs. Will sign off, reconsult as needed. Thank you (Margy Bravo MD) Edwina Dodge Jan 22, 2017 14:48 Margy Bravo MD Jan 23, 2017 12:59
[2017-01-22] MEDS ORDERED: ACETAMINOPHEN/HYDROcodone 325 MG/5 MG TAB PO PRN (15:00)
[2017-01-22] MEDS ORDERED: HYDROmorphone HCL PF 1 MG/ML VIAL IV ONE (15:00)
[2017-01-22 16:00] VITALS: BP 143/60; PULSE 89; RESP 18; TEMP 99.1; O2SAT 97
[2017-01-22] MEDS ORDERED: IOHEXOL 350 MG/ML 50 ML BTL (for RAD DIAG) ONE (16:05)
--- NOTE | 2017-01-22 16:55 | PD.RAD ---
Post Procedure Progress Note Pre Procedure Diagnosis: (1) Chronic recurrent pancreatitis Post Procedure Diagnosis: (1) Chronic recurrent pancreatitis Procedure Date: Jan 22, 2017 Supervising Radiologist: Ryan Stuart Proceduralist/Assist: Sharon Montes RT(R), RT Jacquelin(R)() Anesthesia: Local Plan of Activity Patient to Unit: Nursing Unit Patient Condition: Fair See PACS Report for procedural detail/treatment Feeding Tube Gastro/Jejunostomy Exchange Ryan Stuart MD Jan 22, 2017 16:55
--- NOTE | 2017-01-22 17:08 | RADRPT ---
EXAM DATE/TIME: 01/22/2017 15:41 [place] COMPARISON: CHANGE OF GJ-TUBE CATHETER, February 27, 2016, 10:48. INDICATIONS : Patient with chronic pancreatitis. Clogged GJ tube. MEDICAL HISTORY : 1. A fib 2. HTN 3. Renal disease 4. GERD SURGICAL HISTORY : 1. BIliary stent placement 2. GJ tube placment 3. Cholecystectomy 4. sphincterotomy 5. hiatal hernia repair 6. Left knee replacment 7. ERCP ENCOUNTER: Subsequent ACUITY: >1 year PAIN SCORE: 2/10 LOCATION: lower quadrant FLUORO TIME: 4.6 minutes IMAGE SERIES: 2 CONTRAST: 10 cc Omnipaque (iohexol) 350 DEVICE(S): 1.) 22 Thai Transgastric tube PROCEDURE : 1. Fluoroscopically guided gastrojejunostomy tube exchange. 2. Conscious sedation with continuous EKG and oximetry monitoring. The risks, benefits and alternatives to the procedure were explained and verbal and written consent w as obtained. The site was prepped in sterile fashion. Full sterile technique was used, including ca p, mask, sterile gloves and gown and a large sterile sheet. Hand hygiene and 2% chlorhexidine and/or betadine/alcohol prep was utilized per protocol for cutaneous antisepsis. The skin and subcutaneous tissues were infiltrated with local anesthetic solution. With fluoroscopic guidance a guidewire was passed through the previous gastrojejunostomy tube and a f resh tube was placed over the guidewire. The balloon was inflated with appropriate volume of saline. Injection of positive contrast demonstrates good position of the gastric and jejunal lumens of the tube. Conscious sedation was performed with the prescribed dosages and duration as above in the presence of an independent trained radiology nurse to assist in the monitoring of the patient. EKG and oximetry remained stable throughout the procedure. The patient tolerated the procedure well and there were n o complications. The patient was sent to post anesthesia recovery in stable condition. CONCLUSION: Uncomplicated gastrojejunostomy tube exchange as above. Ryan Stuart MD on January 22, 2017 at 17:07 Board Certified Radiologist. This report was verified electronically.
--- NOTE | 2017-01-22 17:31 | HHI.NPPN ---
Subjective History of Present Illness 81 year old with CKD 4 ,Recurrent pancreatitis Objective Data Data 01/21/17 01/22/17 19:00 07:00 Intake Total 480 ml 6 ml Output Total 600 ml Balance -120 ml 6 ml Intake Oral 480 ml IV Total 6 ml Tube Feeding 0 ml Tube Irrigant 0 ml Output Urine Total 600 ml # Voids 3 # Bowel Movements 0 Vital Signs Date Time Temp Pulse Resp B/P Pulse Ox O2 Delivery O2 Flow Rate FiO2 01/22/17 12:00 98.6 85 18 149/70 95 01/22/17 08:00 97.0 85 18 149/70 94 01/22/17 04:00 98.3 92 16 95 01/22/17 00:00 98.1 81 16 135/69 95 01/21/17 20:00 98.7 94 16 151/72 96 -: 01/22/17 0537 01/22/17 0537 Physical Exam General Appearance: Well Developed Neck Neck Exam: Neck Supple Pulmonary Resp Exam: Clear Bilaterally, Breath Sounds Equal Cardiology CV Exam: Regular Gastrointestinal/Abdomen GI Exam: Soft Integumentary Skin Exam: Clear Extremeties Extremities Exam: No Edema Neurologic Neuro Exam: Alert Assessment/Plan Problem List: (1) Acute renal insufficiency Plan: Patient has CKD baseline Cr changed renal functions cr 2.7 nausea/vomiting contributing had G- J tube changed continue to TF may use Nepro follow BMP c/o pain Dilaudid 0.5 mg ordered as G-J not able to use (2) CKD (chronic kidney disease) stage 4, GFR 15-29 ml/min Plan: Will monitor kidney situation (3) Chronic recurrent pancreatitis Plan: getting TF (4) Leukocytosis Plan: She has neg cultures (5) Anemia Plan: Continue to monitor check Iron Arnaldo Melara MD Jan 22, 2017 17:31
[2017-01-22] MEDS ORDERED: HYDROmorphone HCL PF 1 MG/ML VIAL IV PUSH ONE (18:00)
[2017-01-22 20:00] VITALS: BP 160/73; PULSE 91; RESP 14; TEMP 99; O2SAT 95
[2017-01-23] VITALS: BP 130/69; PULSE 81; RESP 14; TEMP 99.3; O2SAT 97
[2017-01-23] MEDS: ONDANSETRON HCL 4 MG/2 ML VIAL IVP PRN ×4 (01:42→21:20)
[2017-01-23] MEDS: ACETAMINOPHEN/HYDROcodone 325 MG/5 MG TAB PO PRN ×6 (01:42→23:41)
[2017-01-23 04:00] VITALS: BP 112/55; PULSE 81; RESP 14; TEMP 98.2; O2SAT 96
[2017-01-23] MEDS: SUCRALFATE 1 GM TAB PO SCH ×3 (07:02→18:14)
[2017-01-23 08:00] VITALS: BP_SYST 124; BP_SYST 128; BP_DIAS 63; BP_DIAS 70; PULSE 83; PULSE 87; RESP 20; TEMP 98.2; TEMP 98.8; O2SAT 100; O2SAT 98
[2017-01-23] MEDS: METOPROLOL TARTRATE 25 MG TAB PO SCH ×2 (08:34→21:19)
[2017-01-23] MEDS: LIPASE/PROTEASE/AMYLASE (12,000/38,000/60,000) CAP PO SCH ×3 (08:34→18:14)
[2017-01-23] MEDS: DILTIAZEM-CD 120 MG CAP ER PO SCH (08:34)
[2017-01-23] MEDS: PANTOPRAZOLE SOD 40 MG DELAYED RELEASE TAB PO SCH ×2 (08:34→21:19)
--- NOTE | 2017-01-23 10:53 | HHI.PR ---
Subjective Remarks says mostly the new gj tube hurts but also the pancreas Objective Vitals lying in bed gj tube in use with tf and bandaged. Vital Signs Date Time Temp Pulse Resp B/P Pulse Ox O2 Delivery O2 Flow Rate FiO2 01/23/17 08:00 98.2 87 20 124/63 100 01/23/17 04:00 98.2 81 14 112/55 96 01/23/17 00:00 99.3 81 14 130/69 97 01/22/17 20:00 99.0 91 14 160/73 95 01/22/17 16:00 99.1 89 18 143/60 97 01/22/17 12:00 98.6 85 18 149/70 95 01/22/17 01/22/17 01/23/17 15:00 23:00 07:00 Intake Total 480 ml 478 ml Balance 480 ml 478 ml Intake Oral 480 ml Tube Feeding 378 ml Other 100 ml # Voids 2 # Bowel Movements 0 Result Diagram: 01/22/17 0537 01/22/17 0537 Imaging Last Impressions Chest X-Ray 01/11/17 0716 Signed Impressions: Service Date/Time: Wednesday, January 11, 2017 07:23 - CONCLUSION: No acute disease. Yunier Santana MD Abdomen/Pelvis CT 01/11/17 0000 Signed Impressions: Service Date/Time: Wednesday, January 11, 2017 10:25 - CONCLUSION: 1. Very mild induration around the pancreas, consistent with history of pancreatitis. 2. Biliary stent in place as described above. 3. I do not see an etiology for the patient's abdominal pain. Jamie Tabor MD FACR A/P Problem List: (1) Chronic recurrent pancreatitis Status: Acute Plan: - comgmt with GI - Pt has had numerous previous admissions d/t recurrent pancreatis. - Pt has followed closely for many years with [facility] and has also been seen at the [facility]. - Pt was last admitted d/t recurrent pancreatitis 11/13/15-01/02/16 and then again for same symptoms 12/14/16-12/26/16. - Pt typically has a reactive leukocytosis with her pancreatitis, and this has been seen on previous admissions. - She previously underwent ERCP with stent placement 11/22/15. Pt had G/J tube placed on 11/28/15, but this was removed. - Most recently she underwent repeat ERCP (12/11/15) with biliary stent exchange with placement of a 10 czech, 9 cm long plastic stent. - She was actually given steroids at that time with symptomatic improvement. admitted with recurrent pancreatitis and ramón/ckd always had leukocytosis and fever but this has improved ..felt related to acute pancreatitis. - Blood cultures (01/11) with NO growth at 5 days - Repeat blood cultures (01/13) NGTD -GJ tube placed on 01/18. That tube malfunctioned and new one placed on 01/22 TF started. goal now is 75ml/hr at night d/c delayed due to gj tube malfunction...hopefully home by Wednesday with [facility] -dvt prophylaxis - narcotics prn - Creon, Protonix (2) Leukocytosis Status: Acute Plan: - improving - Pt has pattern of leukocytosis which correlates with acute episodes of pancreatitis - UA at admission was abnormal but urine culture indicated probable contaminants - Blood cultures (01/11) with no growth x 5 days - She has been having fevers intermittently and WBC now decreased to 11.4 () unlikely infection and that this is most likely related to her pancreatitis. - Repeat blood cultures (01/13) with no growth x 4 day - CXR (01/14) was normal (3) Acute on chronic kidney disease, stage 3 Status: Chronic Plan: - comgmt with Nephrology - Creatinine trending down. - Appreciate Nephrology consultation for further evaluation. Feel that this is likely related to dehydration. - Previous Renal US (12/17/16) --> Echogenic kidneys which can be seen in medical renal disease, bilateral renal cysts, echogenic splenic lesion likely benign and may be related to hemangioma, hypoechoic lesion on the right mid kidney may be related to a complex cyst. (4) HTN (hypertension) Status: Chronic Plan: - metoprolol, cardizem CD (5) Anxiety Status: Chronic Problem Qualifiers (1) HTN (hypertension): Qualified Code: I10 - Essential hypertension Bryan Quezada MD Jan 23, 2017 10:53
[2017-01-23 12:00] VITALS: BP 136/65; PULSE 83; RESP 18; TEMP 98.3; O2SAT 97
[2017-01-23 16:00] VITALS: BP 134/67; PULSE 107; RESP 18; TEMP 98; O2SAT 97
--- NOTE | 2017-01-23 17:13 | HHI.NPPN ---
Subjective History of Present Illness 81 year old with CKD 4 ,Recurrent pancreatitis Additional Remarks No acute complaints Objective Data Data 01/22/17 01/23/17 19:00 07:00 Intake Total 480 ml 478 ml Balance 480 ml 478 ml Intake Oral 480 ml Tube Feeding 378 ml Other 100 ml # Voids 2 # Bowel Movements 0 Vital Signs Date Time Temp Pulse Resp B/P Pulse Ox O2 Delivery O2 Flow Rate FiO2 01/23/17 12:00 98.3 83 18 136/65 97 01/23/17 11:20 20 01/23/17 08:00 98.2 87 20 124/63 100 01/23/17 04:00 98.2 81 14 112/55 96 01/23/17 00:00 99.3 81 14 130/69 97 01/22/17 20:00 99.0 91 14 160/73 95 -: 01/22/17 0537 01/22/17 0537 Physical Exam General Appearance: Well Developed Neck Neck Exam: Neck Supple Pulmonary Resp Exam: Clear Bilaterally, Breath Sounds Equal Cardiology CV Exam: Regular Gastrointestinal/Abdomen GI Exam: Soft Integumentary Skin Exam: Clear Extremeties Extremities Exam: No Edema Neurologic Neuro Exam: Alert Assessment/Plan Problem List: (1) Acute renal insufficiency Plan: Patient has CKD baseline Creatinine 2.7 yesterday, will check AM labs. nausea/vomiting contributing had G- J tube changed continue to TF may use Nepro (2) CKD (chronic kidney disease) stage 4, GFR 15-29 ml/min Plan: Will monitor kidney situation (3) Chronic recurrent pancreatitis Plan: getting TF (4) Leukocytosis Plan: She has neg cultures (5) Anemia Plan: Continue to monitor check Iron Remigio Vincent MD Jan 23, 2017 17:13
[2017-01-23] MEDS: SODIUM CHLORIDE 0.9% FLUSH 5 ML FLUSH FLUSH SCH ×2 (18:14→21:20)
[2017-01-23 20:00] VITALS: BP 141/68; PULSE 100; RESP 18; TEMP 99.2; O2SAT 95
[2017-01-24] VITALS: BP 111/70; PULSE 86; RESP 18; TEMP 98.6; O2SAT 96
[2017-01-24 04:00] VITALS: BP 144/66; PULSE 94; RESP 18; TEMP 99.3; O2SAT 93
[2017-01-24] MEDS: ONDANSETRON HCL 4 MG/2 ML VIAL IVP PRN ×3 (04:30→17:31)
[2017-01-24] MEDS: ACETAMINOPHEN/HYDROcodone 325 MG/5 MG TAB PO PRN ×5 (04:30→21:44)
[2017-01-24 08:00] VITALS: BP 152/74; PULSE 105; RESP 18; TEMP 100.6; O2SAT 97
[2017-01-24 08:25] LABS: BASOPHIL # 0.1 TH/MM3 (0-0.2); BASOPHIL % 0.2 % (0.0-2.0); EOSINOPHIL # 0.1 TH/MM3 (0-0.4); EOSINOPHIL % 0.2 % (0.0-4.0); HEMO FLAGS DIFF FINAL; LYMPH % 2.3 % (9.0-44.0); LYMPHOCYTE # 0.7 TH/MM3 (1.0-4.8); MEAN CELL VOLUME 82.8 FL (80.0-100.0); MEAN CORPUSCULAR HEMOGLOBIN 26.4 PG (27.0-34.0); MEAN CORPUSCULAR HGB CONC 31.9 % (32.0-36.0); MONO % 4.2 % (0.0-8.0); NEUT % 93.1 % (16.0-70.0); PLATELET COUNT 553 TH/MM3 (150-450); RED BLOOD COUNT 3.26 MIL/MM3 (4.00-5.30); RED CELL DISTRIBUTION WIDTH 16.4 % (11.6-17.2)
[2017-01-24] MEDS: SUCRALFATE 1 GM TAB PO SCH ×3 (08:40→17:30)
[2017-01-24] MEDS: LIPASE/PROTEASE/AMYLASE (12,000/38,000/60,000) CAP PO SCH ×3 (08:40→17:30)
[2017-01-24] MEDS: PANTOPRAZOLE SOD 40 MG DELAYED RELEASE TAB PO SCH ×2 (08:40→21:44)
[2017-01-24] MEDS: METOPROLOL TARTRATE 25 MG TAB PO SCH ×2 (08:40→21:44)
[2017-01-24] MEDS: DILTIAZEM-CD 120 MG CAP ER PO SCH (08:40)
[2017-01-24] MEDS: ACETAMINOPHEN 325 MG TAB PO PRN (08:40)
[2017-01-24] MEDS: SODIUM CHLORIDE 0.9% FLUSH 5 ML FLUSH FLUSH SCH ×2 (08:42→21:45)
[2017-01-24 08:45] LABS: BICARBONATE 27.6 MEQ/L (21.0-32.0); POTASSIUM 4.3 MEQ/L (3.5-5.1)
--- NOTE | 2017-01-24 10:00 | HHI.PR ---
Subjective Remarks pt says pain from gj tube better. but has had more pancreatic pain. Objective Vitals heart reg lung cta abd gj tube. bs ext no edema Vital Signs Date Time Temp Pulse Resp B/P Pulse Ox O2 Delivery O2 Flow Rate FiO2 01/24/17 08:45 Room Air 01/24/17 08:00 100.6 105 18 152/74 97 01/24/17 04:00 99.3 94 18 144/66 93 01/24/17 00:00 98.6 86 18 111/70 96 01/23/17 20:19 Room Air 01/23/17 20:00 99.2 100 18 141/68 95 01/23/17 16:38 20 01/23/17 16:00 98.0 107 18 134/67 97 01/23/17 12:00 98.3 83 18 136/65 97 01/23/17 01/23/17 01/24/17 15:00 23:00 07:00 Intake Total 292 ml 637 ml Balance 292 ml 637 ml Intake Oral 240 ml 240 ml IV Total 2 ml Tube Feeding 50 ml 397 ml # Voids 1 2 # Bowel Movements 0 0 Result Diagram: 01/24/17 0743 01/24/17 0743 Imaging Last Impressions Chest X-Ray 01/11/17 0716 Signed Impressions: Service Date/Time: Wednesday, January 11, 2017 07:23 - CONCLUSION: No acute disease. Yunier Santana MD Abdomen/Pelvis CT 01/11/17 0000 Signed Impressions: Service Date/Time: Wednesday, January 11, 2017 10:25 - CONCLUSION: 1. Very mild induration around the pancreas, consistent with history of pancreatitis. 2. Biliary stent in place as described above. 3. I do not see an etiology for the patient's abdominal pain. Jamie Tabor MD FACR A/P Problem List: (1) Chronic recurrent pancreatitis Status: Acute Plan: - comgmt with GI - Pt has had numerous previous admissions d/t recurrent pancreatis. - Pt has followed closely for many years with [facility] and has also been seen at the [facility]. - Pt was last admitted d/t recurrent pancreatitis 11/13/15-01/02/16 and then again for same symptoms 12/14/16-12/26/16. - Pt typically has a reactive leukocytosis with her pancreatitis, and this has been seen on previous admissions. - She previously underwent ERCP with stent placement 11/22/15. Pt had G/J tube placed on 11/28/15, but this was removed. - Most recently she underwent repeat ERCP (12/11/15) with biliary stent exchange with placement of a 10 vietnamese, 9 cm long plastic stent. - She was actually given steroids at that time with symptomatic improvement. admitted with recurrent pancreatitis and ramón/ckd always had leukocytosis and fever with her pancreatitis - Blood cultures 01/11 and 01/13 ngtd -GJ tube placed on 01/18. That tube malfunctioned and new one placed on 01/22 - now with recurrent pancreatic pain and rising wbc and lipase again - will make npo and continuous tube feeding for now the plan upon d/c is 75ml/hr at night tube feeding. -dvt prophylaxis - narcotics prn - Creon, Protonix (2) Acute on chronic kidney disease, stage 3 Status: Chronic Plan: - comgmt with Nephrology - Creatinine trending down. - Appreciate Nephrology consultation for further evaluation. Feel that this is likely related to dehydration. - Previous Renal US (12/17/16) --> Echogenic kidneys which can be seen in medical renal disease, bilateral renal cysts, echogenic splenic lesion likely benign and may be related to hemangioma, hypoechoic lesion on the right mid kidney may be related to a complex cyst. (3) HTN (hypertension) Status: Chronic Plan: - metoprolol, cardizem CD (4) Anxiety Status: Chronic Problem Qualifiers (1) HTN (hypertension): Qualified Code: I10 - Essential hypertension Bryan Quezada MD Jan 24, 2017 10:00 (4) HTN (hypertension) Status: Chronic Plan: - metoprolol, cardizem CD (5) Anxiety Status: Chronic Problem Qualifiers (1) HTN (hypertension): Qualified Code: I10 - Essential hypertension Bryan Quezada MD Jan 24, 2017 10:00
[2017-01-24 12:20] VITALS: BP 122/59; PULSE 86; RESP 18; TEMP 98.6; O2SAT 95
[2017-01-24 16:00] VITALS: BP 150/71; PULSE 100; RESP 18; TEMP 100.6; O2SAT 98
--- NOTE | 2017-01-24 16:24 | HHI.NPPN ---
Subjective History of Present Illness 81 year old with CKD 4 ,Recurrent pancreatitis Additional Remarks No acute complaints, ongoing abdominal discomfort Objective Data Data 01/23/17 01/24/17 19:00 07:00 Intake Total 929 ml Balance 929 ml Intake Oral 480 ml IV Total 2 ml Tube Feeding 447 ml # Voids 3 # Bowel Movements 0 Vital Signs Date Time Temp Pulse Resp B/P Pulse Ox O2 Delivery O2 Flow Rate FiO2 01/24/17 12:20 98.6 86 18 122/59 95 01/24/17 08:45 Room Air 01/24/17 08:00 100.6 105 18 152/74 97 01/24/17 04:00 99.3 94 18 144/66 93 01/24/17 00:00 98.6 86 18 111/70 96 01/23/17 20:19 Room Air 01/23/17 20:00 99.2 100 18 141/68 95 01/23/17 16:38 20 -: 01/24/17 0743 01/24/17 0743 Physical Exam General Appearance: Well Developed Neck Neck Exam: Neck Supple Pulmonary Resp Exam: Clear Bilaterally, Breath Sounds Equal Cardiology CV Exam: Regular Gastrointestinal/Abdomen GI Exam: Soft Integumentary Skin Exam: Clear Extremeties Extremities Exam: No Edema Neurologic Neuro Exam: Alert Assessment/Plan Problem List: (1) Acute renal insufficiency Plan: Patient has CKD baseline Creatinine 3-> 2.7 -> 3.1 Creatinine stable nausea/vomiting contributing initially, had G- J tube changed continue tube feeds (2) CKD (chronic kidney disease) stage 4, GFR 15-29 ml/min Plan: Will monitor kidney situation (3) Chronic recurrent pancreatitis Plan: getting TF (4) Leukocytosis Plan: She has neg cultures (5) Anemia Plan: Continue to monitor Problem Qualifiers (1) Anemia: Qualified Code: D64.89 - Anemia due to other cause, not classified Remigio Vincent MD Jan 24, 2017 16:24
[2017-01-24] MEDS: SODIUM CHLORIDE 0.9% FLUSH 5 ML FLUSH FLUSH PRN (17:31)
[2017-01-24 20:00] VITALS: BP 153/59; PULSE 107; RESP 18; TEMP 99.7; O2SAT 97
[2017-01-25] VITALS: BP 121/58; PULSE 88; RESP 18; TEMP 99.2; O2SAT 100
[2017-01-25 04:00] VITALS: BP 127/73; PULSE 99; RESP 18; TEMP 99.5; O2SAT 97
[2017-01-25 07:19] LABS: AUTOMATED NEUTROPHIL # 30.7 TH/MM3 (1.8-7.7); BASOPHIL # 0.2 TH/MM3 (0-0.2); BASOPHIL % 0.7 % (0.0-2.0); EOSINOPHIL # 0.1 TH/MM3 (0-0.4); EOSINOPHIL % 0.3 % (0.0-4.0); HEMATOCRIT 25.3 % (35.0-46.0); HEMO FLAGS AUTO DIFF; LYMPH % 3.3 % (9.0-44.0); LYMPHOCYTE # 1.1 TH/MM3 (1.0-4.8); MEAN CORPUSCULAR HEMOGLOBIN 26.1 PG (27.0-34.0); MEAN CORPUSCULAR HGB CONC 32.2 % (32.0-36.0); MONO % 3.1 % (0.0-8.0); NEUT % 92.6 % (16.0-70.0); PLATELET COUNT 493 TH/MM3 (150-450); RED BLOOD COUNT 3.12 MIL/MM3 (4.00-5.30); RED CELL DISTRIBUTION WIDTH 17.2 % (11.6-17.2); WHITE BLOOD COUNT 33.1 TH/MM3 (4.0-11.0)
[2017-01-25 07:29] LABS: BANDS 6 % (0-6); CORRECTED NUCLEATED RBC 1 /100 WBC (0-0); NEUTROPHIL # MANUAL DIFF 31.1 TH/MM3 (1.8-7.7); PLATELET ESTIMATE SMEAR HIGH (NORMAL); POLYS (SEG NEUTROPHILS) 88 % (16-70); SCAN/DIFF FINAL DIFF MANUAL; WBC DIFF SAMPLE 100
[2017-01-25 07:30] LABS: PLATELET MORPHOLOGY ENLARGED (NORMAL)
[2017-01-25 08:00] VITALS: BP 128/61; PULSE 103; RESP 20; TEMP 100; O2SAT 95
[2017-01-25] MEDS: DILTIAZEM-CD 120 MG CAP ER PO SCH (09:28)
[2017-01-25] MEDS: SUCRALFATE 1 GM TAB PO SCH ×3 (09:28→17:42)
[2017-01-25] MEDS: SODIUM CHLORIDE 0.9% FLUSH 5 ML FLUSH FLUSH SCH ×2 (09:28→23:20)
[2017-01-25] MEDS: LIPASE/PROTEASE/AMYLASE (12,000/38,000/60,000) CAP PO SCH ×3 (09:29→17:42)
[2017-01-25] MEDS: METOPROLOL TARTRATE 25 MG TAB PO SCH ×2 (09:29→23:19)
[2017-01-25] MEDS: PANTOPRAZOLE SOD 40 MG DELAYED RELEASE TAB PO SCH ×2 (09:29→23:18)
[2017-01-25] MEDS: ACETAMINOPHEN/HYDROcodone 325 MG/5 MG TAB PO PRN ×2 (09:29→23:19)
[2017-01-25 12:00] VITALS: BP 128/61; PULSE 97; RESP 12; TEMP 98.9; O2SAT 91
--- NOTE | 2017-01-25 12:30 | HHI.PR ---
Subjective Remarks Pt reports that abdominal pain is unchanged She is still having intermittent fevers, Tmax 100.0 this morning at 0800 Blood cultures have been negative. Objective Vitals Vital Signs Date Time Temp Pulse Resp B/P Pulse Ox O2 Delivery O2 Flow Rate FiO2 01/25/17 11:06 95 Room Air 01/25/17 08:00 100.0 103 20 128/61 95 01/25/17 04:00 99.5 99 18 127/73 97 01/25/17 00:00 99.2 88 18 121/58 100 01/24/17 21:47 Room Air 01/24/17 20:00 99.7 107 18 153/59 97 01/24/17 16:00 100.6 100 18 150/71 98 01/24/17 01/24/17 01/25/17 15:00 23:00 07:00 Intake Total 493 ml 120 ml 0 ml Output Total 300 ml 0 ml Balance 493 ml -180 ml 0 ml Intake Oral 240 ml 120 ml 0 ml IV Total 2 ml Tube Feeding 201 ml Tube Irrigant 50 ml Output Urine Total 300 ml 0 ml # Voids 3 # Bowel Movements 0 0 Result Diagram: 01/25/17 0550 01/24/17 0743 Other Results Laboratory Tests Test 01/24/17 01/25/17 07:43 05:50 White Blood Count 29.0 TH/MM3 33.1 TH/MM3 Red Blood Count 3.26 MIL/MM3 3.12 MIL/MM3 Hemoglobin 8.6 GM/DL 8.1 GM/DL Hematocrit 27.0 % 25.3 % Mean Corpuscular Volume 82.8 FL 81.0 FL Mean Corpuscular Hemoglobin 26.4 PG 26.1 PG Mean Corpuscular Hemoglobin 31.9 % 32.2 % Concent Red Cell Distribution Width 16.4 % 17.2 % Platelet Count 553 TH/MM3 493 TH/MM3 Mean Platelet Volume 8.4 FL 8.8 FL Neutrophils (%) (Auto) 93.1 % 92.6 % Lymphocytes (%) (Auto) 2.3 % 3.3 % Monocytes (%) (Auto) 4.2 % 3.1 % Eosinophils (%) (Auto) 0.2 % 0.3 % Basophils (%) (Auto) 0.2 % 0.7 % Neutrophils # (Auto) 27.0 TH/MM3 30.7 TH/MM3 Lymphocytes # (Auto) 0.7 TH/MM3 1.1 TH/MM3 Monocytes # (Auto) 1.2 TH/MM3 1.0 TH/MM3 Eosinophils # (Auto) 0.1 TH/MM3 0.1 TH/MM3 Basophils # (Auto) 0.1 TH/MM3 0.2 TH/MM3 CBC Comment DIFF FINAL AUTO DIFF Differential Comment FINAL DIFF MANUAL Sodium Level 141 MEQ/L Potassium Level 4.3 MEQ/L Chloride Level 102 MEQ/L Carbon Dioxide Level 27.6 MEQ/L Anion Gap 11 MEQ/L Blood Urea Nitrogen 39 MG/DL Creatinine 3.10 MG/DL Estimat Glomerular Filtration 17 ML/MIN Rate Random Glucose 138 MG/DL Calcium Level 9.1 MG/DL Lipase 1650 U/L 1660 U/L Differential Total Cells 100 Counted Neutrophils % (Manual) 88 % Band Neutrophils % 6 % Lymphocytes % 4 % Monocytes % 2 % Neutrophils # (Manual) 31.1 TH/MM3 Nucleated Red Blood Cells 1 /100 WBC Platelet Estimate HIGH Platelet Morphology Comment ENLARGED Hematology Comments Imaging Last Impressions Tube Change 01/22/17 0000 Signed Impressions: Service Date/Time: Sunday, January 22, 2017 15:41 - CONCLUSION: Uncomplicated gastrojejunostomy tube exchange as above. Ryan Stuart MD Gastrostomy Tube Placement 01/18/17 0000 Signed Impressions: Service Date/Time: Wednesday, January 18, 2017 11:08 - CONCLUSION: Uncomplicated gastrojejunostomy tube placement as above. Ryan Stuart MD Chest X-Ray 01/14/17 0000 Signed Impressions: Service Date/Time: January 15:55 - CONCLUSION: Normal examination. Sanford Avina MD Abdomen/Pelvis CT 01/11/17 0000 Signed Impressions: Service Date/Time: Wednesday, January 11, 2017 10:25 - CONCLUSION: 1. Very mild induration around the pancreas, consistent with history of pancreatitis. 2. Biliary stent in place as described above. 3. I do not see an etiology for the patient's abdominal pain. Jamie Tabor MD FACR Objective Remarks General: AAOx3 Chest: CTA Cardiac: Regular Abd: +BS, soft upper abdominal tenderness Ext: No edema A/P Problem List: (1) Chronic recurrent pancreatitis Status: Acute Plan: - comgmt with GI - Pt has had numerous previous admissions d/t recurrent pancreatis. - Pt has followed closely for many years with [facility] and has also been seen at the [facility]. - Pt was last admitted d/t recurrent pancreatitis 11/13/15-01/02/16 and then again for same symptoms 12/14/16-12/26/16. - Pt typically has a reactive leukocytosis with her pancreatitis, and this has been seen on previous admissions. - She previously underwent ERCP with stent placement 11/22/15. Pt had G/J tube placed on 11/28/15, but this was removed. - Most recently she underwent repeat ERCP (12/11/15) with biliary stent exchange with placement of a 10 peruvian, 9 cm long plastic stent. - She was actually given steroids at that time with symptomatic improvement. - Pt was again admitted with recurrent pancreatitis and Acute/CKD - She has again had leukocytosis and fever with her pancreatitis - Blood cultures 01/11 and 01/13 ngtd - GJ tube placed on 01/18. That tube malfunctioned and new one placed on 01/22 - Pt now with recurrent pancreatic pain and rising WBC count and lipase again - Pt was made NPO on 01/24 and continuous tube feeding for now - When the pt is stable for discharge she will continued on TF at 75ml/hr night tube feeding. - During a previous admission in 2015 she had the same issues with fever and elevated WBC count in the setting of her pancreatitis. She underwent a very extensive workup for infectious etiology which was negative. She had a workup for autoimmune processes which was unrevealing. Pt was started on IV Solu-Medrol for noninfectious inflammatory process and pt had clinical improvement. Consider a trial of IV Solu-Medrol now. - Narcotics PRN - Creon, Protonix - DVT prophylaxis (2) Acute on chronic kidney disease, stage 3 Status: Chronic Plan: - comgmt with Nephrology - Creatinine had decreased to 2.75 on 01/22 but increased to 3.10 on 01/24. - Monitor labs. - Appreciate Nephrology consultation for further evaluation. Feel that this is likely related to dehydration. - Previous Renal US (12/17/16) --> Echogenic kidneys which can be seen in medical renal disease, bilateral renal cysts, echogenic splenic lesion likely benign and may be related to hemangioma, hypoechoic lesion on the right mid kidney may be related to a complex cyst. (3) HTN (hypertension) Status: Chronic Plan: - metoprolol, cardizem CD (4) Anxiety Status: Chronic Assessment and Plan Patient examined. Assessment and plan formulated with Guadalupe Monson PA-C. I agree with the above. Problem Qualifiers (1) HTN (hypertension): Qualified Code: I10 - Essential hypertension Guadalupe Monson Jan 25, 2017 12:30 Alexander Eddy DO Jan 26, 2017 19:22
[2017-01-25] MEDS: methylPREDNISolone SOD SUCC 125 MG/2 ML VIAL IV PUSH SCH ×2 (14:25→23:19)
[2017-01-25 16:00] VITALS: BP 139/63; PULSE 96; RESP 12; TEMP 99.4; O2SAT 95
--- NOTE | 2017-01-25 17:25 | HHI.NPPN ---
Subjective History of Present Illness 81 year old with CKD 4 ,Recurrent pancreatitis Additional Remarks No acute complaints, ongoing abdominal discomfort, fever Objective Data Data 01/24/17 01/25/17 19:00 07:00 Intake Total 493 ml 120 ml Output Total 300 ml Balance 493 ml -180 ml Intake Oral 240 ml 120 ml IV Total 2 ml Tube Feeding 201 ml Tube Irrigant 50 ml Output Urine Total 300 ml # Voids 3 # Bowel Movements 0 Vital Signs Date Time Temp Pulse Resp B/P Pulse Ox O2 Delivery O2 Flow Rate FiO2 01/25/17 12:00 98.9 97 12 128/61 91 01/25/17 11:06 95 Room Air 01/25/17 08:00 100.0 103 20 128/61 95 01/25/17 04:00 99.5 99 18 127/73 97 01/25/17 00:00 99.2 88 18 121/58 100 01/24/17 21:47 Room Air 01/24/17 20:00 99.7 107 18 153/59 97 -: 01/25/17 0550 01/24/17 0743 Physical Exam General Appearance: Well Developed Neck Neck Exam: Neck Supple Pulmonary Resp Exam: Clear Bilaterally, Breath Sounds Equal Cardiology CV Exam: Regular Gastrointestinal/Abdomen GI Exam: Soft Integumentary Skin Exam: Clear Extremeties Extremities Exam: No Edema Neurologic Neuro Exam: Alert Assessment/Plan Problem List: (1) Acute renal insufficiency Plan: Patient has CKD baseline Creatinine 3-> 2.7 -> 3.1 Creatinine stable nausea/vomiting contributing initially, had G- J tube changed continue tube feeds fever T 100 (2) CKD (chronic kidney disease) stage 4, GFR 15-29 ml/min Plan: Will monitor kidney situation (3) Chronic recurrent pancreatitis Plan: getting TF (4) Leukocytosis Plan: She has neg cultures (5) Anemia Plan: Continue to monitor Problem Qualifiers (1) Anemia: Qualified Code: D64.89 - Anemia due to other cause, not classified Arnaldo Melara MD Jan 25, 2017 17:25
[2017-01-25 23:03] VITALS: BP 121/58; PULSE 92; RESP 20; TEMP 99.1; O2SAT 97
[2017-01-26] VITALS (7 sets, daily range): BP systolic 120–154; BP diastolic 58–72; PULSE 84–94; RESP 12–20; TEMP 97.8–98.4; O2SAT 94–100
[2017-01-26] MEDS: ONDANSETRON HCL 4 MG/2 ML VIAL IVP PRN (05:58)
[2017-01-26] MEDS: ACETAMINOPHEN/HYDROcodone 325 MG/5 MG TAB PO PRN ×4 (06:02→21:20)
[2017-01-26 07:23] LABS: AUTOMATED NEUTROPHIL # 27.4 TH/MM3 (1.8-7.7); BASOPHIL % 0.1 % (0.0-2.0); HEMO FLAGS DIFF FINAL; LYMPHOCYTE # 0.9 TH/MM3 (1.0-4.8); MEAN CELL VOLUME 82.2 FL (80.0-100.0); MEAN CORPUSCULAR HEMOGLOBIN 26.4 PG (27.0-34.0); MEAN CORPUSCULAR HGB CONC 32.1 % (32.0-36.0); MONO % 0.4 % (0.0-8.0); NEUT % 96.5 % (16.0-70.0); PLATELET COUNT 510 TH/MM3 (150-450); RED BLOOD COUNT 2.92 MIL/MM3 (4.00-5.30); RED CELL DISTRIBUTION WIDTH 16.9 % (11.6-17.2); WHITE BLOOD COUNT 28.4 TH/MM3 (4.0-11.0)
[2017-01-26 07:49] LABS: BICARBONATE 28.6 MEQ/L (21.0-32.0); POTASSIUM 4.8 MEQ/L (3.5-5.1)
[2017-01-26] MEDS: DILTIAZEM-CD 120 MG CAP ER PO SCH (10:30)
[2017-01-26] MEDS: SUCRALFATE 1 GM TAB PO SCH ×3 (10:30→17:29)
[2017-01-26] MEDS: LIPASE/PROTEASE/AMYLASE (12,000/38,000/60,000) CAP PO SCH ×3 (10:30→17:29)
[2017-01-26] MEDS: PANTOPRAZOLE SOD 40 MG DELAYED RELEASE TAB PO SCH ×2 (10:30→21:16)
[2017-01-26] MEDS: methylPREDNISolone SOD SUCC 125 MG/2 ML VIAL IV PUSH SCH ×2 (10:30→21:16)
[2017-01-26] MEDS: METOPROLOL TARTRATE 25 MG TAB PO SCH ×2 (10:30→21:16)
[2017-01-26] MEDS: SODIUM CHLORIDE 0.9% FLUSH 5 ML FLUSH FLUSH SCH ×2 (10:30→21:16)
--- NOTE | 2017-01-26 14:49 | HHI.PR ---
Subjective Remarks Pts J tube got clogged again and pt had to be seen by IR today and was unable to be unclogged Pt will have GJ tube exchanged on 01/27 Nursing staff reports that she had been receiving TF via the J tube and medications via the G tube. Pts J tube became clogged late last night and they tried to restart TF via the G tube this morning and then that became clogged. Objective Vitals Vital Signs Date Time Temp Pulse Resp B/P Pulse Ox O2 Delivery O2 Flow Rate FiO2 01/26/17 12:57 95 Room Air 01/26/17 12:00 98.2 84 12 135/65 95 01/26/17 08:00 98.3 90 16 135/64 98 01/26/17 07:15 20 01/26/17 05:34 98.4 88 20 148/64 100 01/26/17 00:50 97.8 86 20 120/58 100 01/25/17 23:03 99.1 92 20 121/58 97 01/25/17 22:00 Room Air 01/25/17 16:00 99.4 96 12 139/63 95 01/25/17 01/25/17 01/26/17 15:00 23:00 07:00 Intake Total 240 ml 650 ml 360 ml Output Total 350 ml 800 ml Balance -110 ml 650 ml -440 ml Intake Oral 240 ml 360 ml Tube Feeding 450 ml Other 200 ml Output Urine Total 350 ml 800 ml # Bowel Movements 0 0 Result Diagram: 01/26/17 0623 01/26/17 0623 Other Results Laboratory Tests Test 01/25/17 01/26/17 05:50 06:23 White Blood Count 33.1 TH/MM3 28.4 TH/MM3 Red Blood Count 3.12 MIL/MM3 2.92 MIL/MM3 Hemoglobin 8.1 GM/DL 7.7 GM/DL Hematocrit 25.3 % 24.0 % Mean Corpuscular Volume 81.0 FL 82.2 FL Mean Corpuscular Hemoglobin 26.1 PG 26.4 PG Mean Corpuscular Hemoglobin 32.2 % 32.1 % Concent Red Cell Distribution Width 17.2 % 16.9 % Platelet Count 493 TH/MM3 510 TH/MM3 Mean Platelet Volume 8.8 FL 8.5 FL Neutrophils (%) (Auto) 92.6 % 96.5 % Lymphocytes (%) (Auto) 3.3 % 3.0 % Monocytes (%) (Auto) 3.1 % 0.4 % Eosinophils (%) (Auto) 0.3 % 0.0 % Basophils (%) (Auto) 0.7 % 0.1 % Neutrophils # (Auto) 30.7 TH/MM3 27.4 TH/MM3 Lymphocytes # (Auto) 1.1 TH/MM3 0.9 TH/MM3 Monocytes # (Auto) 1.0 TH/MM3 0.1 TH/MM3 Eosinophils # (Auto) 0.1 TH/MM3 0.0 TH/MM3 Basophils # (Auto) 0.2 TH/MM3 0.0 TH/MM3 CBC Comment AUTO DIFF DIFF FINAL Differential Total Cells 100 Counted Neutrophils % (Manual) 88 % Band Neutrophils % 6 % Lymphocytes % 4 % Monocytes % 2 % Neutrophils # (Manual) 31.1 TH/MM3 Nucleated Red Blood Cells 1 /100 WBC Differential Comment FINAL DIFF MANUAL Platelet Estimate HIGH Platelet Morphology Comment ENLARGED Hematology Comments Lipase 1660 U/L 422 U/L Sodium Level 141 MEQ/L Potassium Level 4.8 MEQ/L Chloride Level 102 MEQ/L Carbon Dioxide Level 28.6 MEQ/L Anion Gap 10 MEQ/L Blood Urea Nitrogen 58 MG/DL Creatinine 3.73 MG/DL Estimat Glomerular Filtration 14 ML/MIN Rate Random Glucose 244 MG/DL Calcium Level 9.2 MG/DL Imaging Last Impressions Tube Change 01/22/17 0000 Signed Impressions: Service Date/Time: Sunday, January 22, 2017 15:41 - CONCLUSION: Uncomplicated gastrojejunostomy tube exchange as above. Ryan Stuart MD Gastrostomy Tube Placement 01/18/17 0000 Signed Impressions: Service Date/Time: Wednesday, January 18, 2017 11:08 - CONCLUSION: Uncomplicated gastrojejunostomy tube placement as above. Ryan Stuart MD Chest X-Ray 01/14/17 0000 Signed Impressions: Service Date/Time: January 15:55 - CONCLUSION: Normal examination. Sanford Avina MD Abdomen/Pelvis CT 01/11/17 0000 Signed Impressions: Service Date/Time: Wednesday, January 11, 2017 10:25 - CONCLUSION: 1. Very mild induration around the pancreas, consistent with history of pancreatitis. 2. Biliary stent in place as described above. 3. I do not see an etiology for the patient's abdominal pain. Jamie Tabor MD FACR Objective Remarks General: AAOx3 Chest: CTA Cardiac: Regular Abd: +BS, soft upper abdominal tenderness Ext: No edema A/P Problem List: (1) Chronic recurrent pancreatitis Status: Acute Plan: - comgmt with GI - Pt has had numerous previous admissions d/t recurrent pancreatis. - Pt has followed closely for many years with [facility] and has also been seen at the [facility]. - Pt was last admitted d/t recurrent pancreatitis 11/13/15-01/02/16 and then again for same symptoms 12/14/16-12/26/16. - Pt typically has a reactive leukocytosis with her pancreatitis, and this has been seen on previous admissions. - She previously underwent ERCP with stent placement 11/22/15. Pt had G/J tube placed on 11/28/15, but this was removed. - Most recently she underwent repeat ERCP (12/11/15) with biliary stent exchange with placement of a 10 yemeni, 9 cm long plastic stent. - She was actually given steroids at that time with symptomatic improvement. - Pt was again admitted with recurrent pancreatitis and Acute/CKD - She has again had leukocytosis and fever with her pancreatitis - Blood cultures 01/11 and 01/13 ngtd - GJ tube placed on 01/18. That tube malfunctioned and new one placed on 01/22. GJ tube again became clogged on 01/26 and pt was evaluated by IR and GJ tube will need to be exchanged again on 01/27 - Discussed this with the consulting services manager to have her look into this further. - We will resume TF with Jevity 1.5 - Pt developed recurrent pancreatic pain and rising WBC count and lipase again - Pt was made NPO on 01/24 and continuous tube feeding - When the pt is stable for discharge she will continued on TF at 75ml/hr night tube feeding. - During a previous admission in 2015 she had the same issues with fever and elevated WBC count in the setting of her pancreatitis. She underwent a very extensive workup for infectious etiology which was negative. She had a workup for autoimmune processes which was unrevealing. Pt was started on IV Solu-Medrol for noninfectious inflammatory process and pt had clinical improvement. - Pt was started on IV Solu-Medrol 60mg Q12H on 01/25. - Repeat lipase on 01/26 is decreased to 422 and WBC count decreased to 28,000. Continue to monitor labs - Narcotics PRN - Creon, Protonix - DVT prophylaxis (2) Acute on chronic kidney disease, stage 3 Status: Chronic Plan: - comgmt with Nephrology - Creatinine had decreased to 2.75 on 01/22 but increased to 3.10 on 01/24. - Monitor labs. - Appreciate Nephrology consultation for further evaluation. Feel that this is likely related to dehydration. - Previous Renal US (12/17/16) --> Echogenic kidneys which can be seen in medical renal disease, bilateral renal cysts, echogenic splenic lesion likely benign and may be related to hemangioma, hypoechoic lesion on the right mid kidney may be related to a complex cyst. (3) HTN (hypertension) Status: Chronic Plan: - metoprolol, cardizem CD (4) Anxiety Status: Chronic Assessment and Plan Patient examined. Assessment and plan formulated with Guadalupe Monson PA-C. I agree with the above. Problem Qualifiers (1) HTN (hypertension): Qualified Code: I10 - Essential hypertension Guadalupe Monson Jan 26, 2017 14:49 Alexander Eddy DO Jan 26, 2017 19:22
--- NOTE | 2017-01-26 18:42 | HHI.NPPN ---
Subjective History of Present Illness 81 year old with CKD 4 ,Recurrent pancreatitis Additional Remarks No acute complaints, ongoing abdominal discomfort, fever Objective Data Data 01/25/17 01/26/17 19:00 07:00 Intake Total 890 ml 360 ml Output Total 350 ml 800 ml Balance 540 ml -440 ml Intake Oral 240 ml 360 ml Tube Feeding 450 ml Other 200 ml Output Urine Total 350 ml 800 ml # Bowel Movements 0 0 Vital Signs Date Time Temp Pulse Resp B/P Pulse Ox O2 Delivery O2 Flow Rate FiO2 01/26/17 18:31 18 01/26/17 16:00 98.4 84 16 154/70 95 01/26/17 12:57 95 Room Air 01/26/17 12:00 98.2 84 12 135/65 95 01/26/17 08:00 98.3 90 16 135/64 98 01/26/17 05:34 98.4 88 20 148/64 100 01/26/17 00:50 97.8 86 20 120/58 100 01/25/17 23:03 99.1 92 20 121/58 97 01/25/17 22:00 Room Air -: 01/26/17 0623 01/26/17 0623 Physical Exam General Appearance: Well Developed Neck Neck Exam: Neck Supple Pulmonary Resp Exam: Clear Bilaterally, Breath Sounds Equal Cardiology CV Exam: Regular Gastrointestinal/Abdomen GI Exam: Soft Integumentary Skin Exam: Clear Extremeties Extremities Exam: No Edema Neurologic Neuro Exam: Alert Assessment/Plan Problem List: (1) Acute renal insufficiency Plan: Patient has CKD baseline Creatinine 3-> 2.7 -> 3.1 --> 3.7 Creatinine HIGHER IVF ordered nausea/vomiting contributing initially, had G- J tube changed continue tube feeds fever T 99.1 (2) CKD (chronic kidney disease) stage 4, GFR 15-29 ml/min Plan: Will monitor kidney situation (3) Chronic recurrent pancreatitis Plan: getting TF (4) Leukocytosis Plan: She has neg cultures (5) Anemia Plan: Continue to monitor Problem Qualifiers (1) Anemia: Qualified Code: D64.89 - Anemia due to other cause, not classified Arnaldo Melara MD Jan 26, 2017 18:42
[2017-01-26] MEDS: SODIUM CHLOR 0.9% 1000 ML INJ 1,000 ML IV SCH (21:17)
[2017-01-27] VITALS (10 sets, daily range): BP systolic 138–165; BP diastolic 72–88; PULSE 68–89; RESP 15–20; TEMP 97.6–98.6; O2SAT 93–100
[2017-01-27] MEDS: SODIUM CHLOR 0.9% 1000 ML INJ 1,000 ML IV SCH ×2 (04:00→20:20)
[2017-01-27 06:25] LABS: AUTOMATED NEUTROPHIL # 29.7 TH/MM3 (1.8-7.7); BASOPHIL % 0.1 % (0.0-2.0); HEMATOCRIT 24.1 % (35.0-46.0); LYMPH % 4.3 % (9.0-44.0); LYMPHOCYTE # 1.4 TH/MM3 (1.0-4.8); MEAN CELL VOLUME 80.7 FL (80.0-100.0); MEAN CORPUSCULAR HEMOGLOBIN 26.6 PG (27.0-34.0); MEAN CORPUSCULAR HGB CONC 32.9 % (32.0-36.0); MONO % 0.8 % (0.0-8.0); NEUT % 94.8 % (16.0-70.0); PLATELET COUNT 561 TH/MM3 (150-450); RED BLOOD COUNT 2.99 MIL/MM3 (4.00-5.30); RED CELL DISTRIBUTION WIDTH 16.3 % (11.6-17.2); WHITE BLOOD COUNT 31.4 TH/MM3 (4.0-11.0)
[2017-01-27 06:29] LABS: HEMO FLAGS AUTO DIFF
[2017-01-27 06:54] LABS: BICARBONATE 28.3 MEQ/L (21.0-32.0); MAGNESIUM 2.3 MG/DL (1.5-2.5); POTASSIUM 4.9 MEQ/L (3.5-5.1)
[2017-01-27] MEDS: ONDANSETRON HCL 4 MG/2 ML VIAL IVP PRN (07:05)
[2017-01-27] MEDS: ACETAMINOPHEN/HYDROcodone 325 MG/5 MG TAB PO PRN ×2 (07:05→15:53)
[2017-01-27 07:57] LABS: BANDS 2 % (0-6); METAMYELOCYTES 1 % (0-1); NEUTROPHIL # MANUAL DIFF 28.9 TH/MM3 (1.8-7.7); PLATELET ESTIMATE SMEAR HIGH (NORMAL); PLATELET MORPHOLOGY NORMAL (NORMAL); POLYS (SEG NEUTROPHILS) 89 % (16-70); SCAN/DIFF FINAL DIFF MANUAL; WBC DIFF SAMPLE 100
[2017-01-27] MEDS: SUCRALFATE 1 GM TAB PO SCH ×3 (08:41→15:52)
[2017-01-27] MEDS: DILTIAZEM-CD 120 MG CAP ER PO SCH (08:41)
[2017-01-27] MEDS: METOPROLOL TARTRATE 25 MG TAB PO SCH ×2 (08:41→20:19)
[2017-01-27] MEDS: PANTOPRAZOLE SOD 40 MG DELAYED RELEASE TAB PO SCH ×2 (08:41→20:19)
[2017-01-27] MEDS: LIPASE/PROTEASE/AMYLASE (12,000/38,000/60,000) CAP PO SCH ×3 (08:44→20:18)
[2017-01-27] MEDS: SODIUM CHLORIDE 0.9% FLUSH 5 ML FLUSH FLUSH SCH ×2 (08:45→20:18)
[2017-01-27] MEDS: methylPREDNISolone SOD SUCC 125 MG/2 ML VIAL IV PUSH SCH ×2 (09:00→20:18)
--- NOTE | 2017-01-27 11:29 | HHI.PR ---
Subjective Remarks Pt awaiting G/J exchange. Pt's abdominal pain is improved & she is eager for a diet. Objective Vitals Vital Signs Date Time Temp Pulse Resp B/P Pulse Ox O2 Delivery O2 Flow Rate FiO2 01/27/17 08:08 98.3 89 19 144/79 96 01/27/17 04:00 98.2 86 20 152/72 96 01/27/17 00:00 98.6 86 18 138/88 98 01/26/17 20:05 98.3 94 18 154/72 94 01/26/17 18:31 18 01/26/17 16:00 98.4 84 16 154/70 95 01/26/17 12:57 95 Room Air 01/26/17 12:00 98.2 84 12 135/65 95 01/26/17 01/26/17 01/27/17 15:00 23:00 07:00 Intake Total 0 ml 910 ml 0 ml Output Total 600 ml Balance 0 ml 910 ml -600 ml Intake Oral 0 ml 360 ml 0 ml IV Total 0 ml Tube Feeding 300 ml Other 250 ml Output Urine Total 600 ml # Voids 3 # Bowel Movements 1 0 0 Result Diagram: 01/27/1751601/27/17516 Imaging Last Impressions Tube Change 01/22/17 0000 Signed Impressions: Service Date/Time: Sunday, January 22, 2017 15:41 - CONCLUSION: Uncomplicated gastrojejunostomy tube exchange as above. Ryan Stuart MD Gastrostomy Tube Placement 01/18/17 0000 Signed Impressions: Service Date/Time: Wednesday, January 18, 2017 11:08 - CONCLUSION: Uncomplicated gastrojejunostomy tube placement as above. Ryan Stuart MD Chest X-Ray 01/14/17 0000 Signed Impressions: Service Date/Time: January 15:55 - CONCLUSION: Normal examination. Sanford Avina MD Abdomen/Pelvis CT 01/11/17 0000 Signed Impressions: Service Date/Time: Wednesday, January 11, 2017 10:25 - CONCLUSION: 1. Very mild induration around the pancreas, consistent with history of pancreatitis. 2. Biliary stent in place as described above. 3. I do not see an etiology for the patient's abdominal pain. Jamie Tabor MD FACR Objective Remarks General: AAOx3 Chest: CTA Cardiac: Regular Abd: +BS, soft upper abdominal tenderness Ext: No edema A/P Problem List: (1) Chronic recurrent pancreatitis Status: Acute Plan: - comgmt with GI - Pt has had numerous previous admissions d/t recurrent pancreatis. - Pt has followed closely for many years with [facility] and has also been seen at the [facility]. - Pt was last admitted d/t recurrent pancreatitis 11/13/15-01/02/16 and then again for same symptoms 12/14/16-12/26/16. - Pt typically has a reactive leukocytosis with her pancreatitis, and this has been seen on previous admissions. - She previously underwent ERCP with stent placement 11/22/15. Pt had G/J tube placed on 11/28/15, but this was removed. - Most recently she underwent repeat ERCP (12/11/15) with biliary stent exchange with placement of a 10 vietnamese, 9 cm long plastic stent. - She was actually given steroids at that time with symptomatic improvement. - Pt was again admitted with recurrent pancreatitis and Acute/CKD - She has again had leukocytosis and fever with her pancreatitis - Blood cultures 01/11 and 01/13 ngtd - GJ tube placed on 01/18. That tube malfunctioned and new one placed on 01/22. GJ tube again became clogged on 01/26 and pt was evaluated by IR and GJ tube will need to be exchanged again today 01/27 - We will resume TF with Jevity 1.5 following exchange - Pt developed recurrent pancreatic pain and rising WBC count and lipase again - Pt was made NPO on 01/24 and continuous tube feeding - When the pt is stable for discharge she will continued on TF at 75ml/hr night tube feeding. - During a previous admission in 2015 she had the same issues with fever and elevated WBC count in the setting of her pancreatitis. She underwent a very extensive workup for infectious etiology which was negative. She had a workup for autoimmune processes which was unrevealing. Pt was started on IV Solu-Medrol for noninfectious inflammatory process and pt had clinical improvement. - Pt was started on IV Solu-Medrol 60mg Q12H on 01/25. - lipase has normalized - WBC 28K (01/26/17), 31.4K (01/27/17) - observe - Narcotics PRN - Creon, Protonix - DVT prophylaxis (2) Acute on chronic kidney disease, stage 3 Status: Chronic Plan: - comgmt with Nephrology - Creatinine had decreased to 2.75 on 01/22 but increased to 3.10 on 01/24. - Creatine 3.78 (01/27/17) - Monitor labs. - Appreciate Nephrology consultation for further evaluation. Feel that this is likely related to dehydration. - Previous Renal US (12/17/16) --> Echogenic kidneys which can be seen in medical renal disease, bilateral renal cysts, echogenic splenic lesion likely benign and may be related to hemangioma, hypoechoic lesion on the right mid kidney may be related to a complex cyst. (3) HTN (hypertension) Status: Chronic Plan: - metoprolol, cardizem CD (4) Anxiety Status: Chronic Assessment and Plan Patient examined. Assessment and plan formulated with Guadalupe Monson PA-C. I agree with the above. Problem Qualifiers (1) HTN (hypertension): Qualified Code: I10 - Essential hypertension Alexander Eddy DO Jan 27, 2017 11:29
[2017-01-27] MEDS ORDERED: MIDAZOLAM HCL 2 MG/2 ML VIAL ONE ×2 (12:32→12:44)
--- NOTE | 2017-01-27 12:57 | PD.RAD ---
Post Procedure Progress Note Pre Procedure Diagnosis: (1) Feeding tube obstruction Post Procedure Diagnosis: (1) Feeding tube obstruction Procedure Date: Jan 27, 2017 Supervising Radiologist: Stephan Alegria JR Proceduralist/Assist: Cynthia Fatima, RT(R), Clarissa Bradley RT(R)(CV) Anesthesia: Conscious Sedation Plan of Activity Patient to Unit: ROPU Patient Condition: Good See PACS Report for procedural detail/treatment Feeding Tube Gastro/Jejunostomy Replacement Citizen Of [place]: 23 Findings: Occluded jejunal port of GJ tube. Unsuccessful attempts at unclogging tube. Replaced with new GJ tube. Jr. Raji,Stephan Chase MD Jan 27, 2017 12:57
--- NOTE | 2017-01-27 13:52 | HHI.NPPN ---
Subjective History of Present Illness 81 year old with CKD 4 ,Recurrent pancreatitis Additional Remarks No acute complaints, ongoing abdominal discomfort, fever Objective Data Data 01/26/17 01/27/17 19:00 07:00 Intake Total 550 ml 360 ml Output Total 600 ml Balance 550 ml -240 ml Intake Oral 0 ml 360 ml IV Total 0 ml Tube Feeding 300 ml Other 250 ml Output Urine Total 600 ml # Voids 3 # Bowel Movements 1 0 Vital Signs Date Time Temp Pulse Resp B/P Pulse Ox O2 Delivery O2 Flow Rate FiO2 01/27/17 12:09 97.7 77 19 151/83 96 01/27/17 08:08 98.3 89 19 144/79 96 01/27/17 08:00 96 Room Air 21 01/27/17 04:00 98.2 86 20 152/72 96 01/27/17 00:00 98.6 86 18 138/88 98 01/26/17 20:05 98.3 94 18 154/72 94 01/26/17 18:31 18 01/26/17 16:00 98.4 84 16 154/70 95 -: 01/27/17 0517 01/27/17 0517 Physical Exam General Appearance: Well Developed Neck Neck Exam: Neck Supple Pulmonary Resp Exam: Clear Bilaterally, Breath Sounds Equal Cardiology CV Exam: Regular Gastrointestinal/Abdomen GI Exam: Soft Integumentary Skin Exam: Clear Extremeties Extremities Exam: No Edema Neurologic Neuro Exam: Alert Assessment/Plan Problem List: (1) Acute renal insufficiency Plan: Patient has CKD baseline Creatinine 3-> 2.7 -> 3.1 --> 3.7 --> 3.78 Creatinine HIGHER IVF Started follow BMP nausea/vomiting contributing initially, had G- J tube changed continue tube feeds (2) CKD (chronic kidney disease) stage 4, GFR 15-29 ml/min Plan: Will monitor kidney situation (3) Chronic recurrent pancreatitis Plan: getting TF (4) Leukocytosis Plan: She has neg cultures (5) Anemia Plan: Continue to monitor Problem Qualifiers (1) Anemia: Qualified Code: D64.89 - Anemia due to other cause, not classified Arnaldo Melara MD Jan 27, 2017 13:52
--- NOTE | 2017-01-27 16:10 | RADRPT ---
EXAM DATE/TIME: 01/27/2017 12:14 [place] COMPARISON: No previous studies available for comparison. INDICATIONS : Patient with chronic pancreatitis.Clogged GJ tube MEDICAL HISTORY : 1. A fib 2. HTN 3. Renal disease 4.GERD SURGICAL HISTORY : 1. Billiary stent placement 2. GJ tube placment 3. Cholecystectomy 4. Sphinctero;marbin 5. ;hiatal hernia repair 6. Left knee replacment 7. ERCP ENCOUNTER: Subsequent ACUITY: >1 year PAIN SCORE: 2/10 LOCATION: lower quadrant FLUORO TIME: 5.0 minutes IMAGE SERIES: 2 SEDATION TIME: 30 minutes CONTRAST: 30 cc Omnipaque (iohexol) 350 MEDICATION(S): 1.) 3 mg midazolam (Versed) IV 2.) 150 mcg Fentanyl (Sublimaze) IV DEVICE(S): 1.) 22 [place] Transgastric tube PROCEDURE : 1. Fluoroscopically guided gastrojejunostomy tube exchange. 2. Conscious sedation with continuous EKG and oximetry monitoring. The risks, benefits and alternatives to the procedure were explained and verbal and written consent w as obtained. The site was prepped in sterile fashion. Full sterile technique was used, including ca p, mask, sterile gloves and gown and a large sterile sheet. Hand hygiene and 2% chlorhexidine and/or betadine/alcohol prep was utilized per protocol for cutaneous antisepsis. The skin and subcutaneous tissues were infiltrated with local anesthetic solution. Attempts were made at unclogging the jejunal port. These were unsuccessful. With fluoroscopic guidanc e a guidewire was passed through the previous gastrostomy tube and a fresh tube was placed over the g uidewire. The tip of the jejunal tube was positioned within the proximal jejunum. The balloon was in flated with appropriate volume of saline. Injection of positive contrast demonstrates good position of the gastric and jejunal lumens of the tube. Conscious sedation was performed with the prescribed dosages and duration as above in the presence of an independent trained radiology nurse to assist in the monitoring of the patient. EKG and oximetry remained stable throughout the procedure. The patient tolerated the procedure well and there were n o complications. The patient was sent to post anesthesia recovery in stable condition. CONCLUSION: Uncomplicated gastrojejunostomy tube exchange as above. Stephan Alegria Jr., MD on January 27, 2017 at 16:07 Board Certified Radiologist. This report was verified electronically.
[2017-01-28 00:46] VITALS: BP 148/72; PULSE 73; RESP 16; TEMP 98; O2SAT 98
[2017-01-28] MEDS: SODIUM CHLOR 0.9% 1000 ML INJ 1,000 ML IV SCH ×2 (03:58→12:55)
[2017-01-28 04:23] VITALS: BP 132/68; PULSE 68; RESP 16; TEMP 98.4; O2SAT 98
[2017-01-28] MEDS: ACETAMINOPHEN/HYDROcodone 325 MG/5 MG TAB PO PRN ×4 (06:36→22:19)
[2017-01-28 08:06] VITALS: BP 149/75; PULSE 84; RESP 18; TEMP 97.8; O2SAT 98
[2017-01-28 08:37] LABS: BASOPHIL % 0.2 % (0.0-2.0); HEMATOCRIT 25.5 % (35.0-46.0); LYMPH % 4.6 % (9.0-44.0); LYMPHOCYTE # 0.9 TH/MM3 (1.0-4.8); MEAN CELL VOLUME 83.2 FL (80.0-100.0); MEAN CORPUSCULAR HEMOGLOBIN 26.2 PG (27.0-34.0); MEAN CORPUSCULAR HGB CONC 31.5 % (32.0-36.0); MONO % 1.3 % (0.0-8.0); NEUT % 93.9 % (16.0-70.0); PLATELET COUNT 518 TH/MM3 (150-450); RED BLOOD COUNT 3.07 MIL/MM3 (4.00-5.30); RED CELL DISTRIBUTION WIDTH 16.8 % (11.6-17.2); WHITE BLOOD COUNT 19.2 TH/MM3 (4.0-11.0)
[2017-01-28 08:43] LABS: BICARBONATE 24.4 MEQ/L (21.0-32.0); MAGNESIUM 2.3 MG/DL (1.5-2.5); POTASSIUM 4.5 MEQ/L (3.5-5.1)
[2017-01-28 08:56] LABS: HEMO FLAGS AUTO DIFF
[2017-01-28] MEDS: ONDANSETRON HCL 4 MG/2 ML VIAL IVP PRN (09:52)
[2017-01-28] MEDS: methylPREDNISolone SOD SUCC 125 MG/2 ML VIAL IV PUSH SCH ×2 (09:54→22:21)
[2017-01-28] MEDS: METOPROLOL TARTRATE 25 MG TAB PO SCH ×2 (09:55→22:19)
[2017-01-28] MEDS: SODIUM CHLORIDE 0.9% FLUSH 5 ML FLUSH FLUSH SCH ×2 (09:56→22:23)
[2017-01-28] MEDS: PANTOPRAZOLE SOD 40 MG DELAYED RELEASE TAB PO SCH ×2 (09:56→22:18)
[2017-01-28] MEDS: DILTIAZEM-CD 120 MG CAP ER PO SCH (09:56)
[2017-01-28] MEDS: SUCRALFATE 1 GM TAB PO SCH ×3 (09:56→17:00)
[2017-01-28] MEDS: LIPASE/PROTEASE/AMYLASE (12,000/38,000/60,000) CAP PO SCH ×3 (09:56→18:30)
[2017-01-28 10:09] LABS: SCAN/DIFF AUTO DIFF CONFIRMED
--- NOTE | 2017-01-28 11:23 | HHI.PR ---
Subjective Remarks Pt had GJ tube exchanged on 01/27 Currently on TF at 40mL /hr, no residuals per nursing staff Pt tolerating clear liquid diet Afebrile. Objective Vitals Vital Signs Date Time Temp Pulse Resp B/P Pulse Ox O2 Delivery O2 Flow Rate FiO2 01/28/17 04:23 98.4 68 16 132/68 98 01/28/17 04:23 Room Air 01/28/17 00:46 98.0 73 16 148/72 98 01/28/17 00:46 Room Air 01/27/17 20:00 98.3 77 18 155/75 100 01/27/17 20:00 Room Air 01/27/17 16:33 97.6 77 18 150/77 100 01/27/17 14:20 70 18 164/86 94 01/27/17 13:50 70 16 165/82 95 01/27/17 13:20 68 15 154/80 95 01/27/17 13:05 72 16 154/85 93 01/27/17 12:09 97.7 77 19 151/83 96 01/27/17 01/27/17 01/28/17 15:00 23:00 07:00 Intake Total 1081 ml 1731 ml Balance 1081 ml 1731 ml Intake Oral 560 ml IV Total 779 ml 755 ml Tube Feeding 42 ml 156 ml Tube Irrigant 60 ml 60 ml Other 200 ml 200 ml # Voids 1 5 # Bowel Movements 0 0 Result Diagram: 01/28/17 0711 01/28/17 0711 Other Results Laboratory Tests Test 01/27/17 01/28/17 05:17 07:11 White Blood Count 31.4 TH/MM3 19.2 TH/MM3 Red Blood Count 2.99 MIL/MM3 3.07 MIL/MM3 Hemoglobin 7.9 GM/DL 8.0 GM/DL Hematocrit 24.1 % 25.5 % Mean Corpuscular Volume 80.7 FL 83.2 FL Mean Corpuscular Hemoglobin 26.6 PG 26.2 PG Mean Corpuscular Hemoglobin 32.9 % 31.5 % Concent Red Cell Distribution Width 16.3 % 16.8 % Platelet Count 561 TH/MM3 518 TH/MM3 Mean Platelet Volume 8.1 FL 8.2 FL Neutrophils (%) (Auto) 94.8 % 93.9 % Lymphocytes (%) (Auto) 4.3 % 4.6 % Monocytes (%) (Auto) 0.8 % 1.3 % Eosinophils (%) (Auto) 0.0 % 0.0 % Basophils (%) (Auto) 0.1 % 0.2 % Neutrophils # (Auto) 29.7 TH/MM3 18.0 TH/MM3 Lymphocytes # (Auto) 1.4 TH/MM3 0.9 TH/MM3 Monocytes # (Auto) 0.3 TH/MM3 0.2 TH/MM3 Eosinophils # (Auto) 0.0 TH/MM3 0.0 TH/MM3 Basophils # (Auto) 0.0 TH/MM3 0.0 TH/MM3 CBC Comment AUTO DIFF AUTO DIFF Differential Total Cells 100 Counted Neutrophils % (Manual) 89 % Band Neutrophils % 2 % Lymphocytes % 7 % Monocytes % 1 % Neutrophils # (Manual) 28.9 TH/MM3 Metamyelocytes 1 % Differential Comment FINAL DIFF AUTO DIFF MANUAL CONFIRMED Platelet Estimate HIGH Platelet Morphology Comment NORMAL Sodium Level 141 MEQ/L 143 MEQ/L Potassium Level 4.9 MEQ/L 4.5 MEQ/L Chloride Level 102 MEQ/L 106 MEQ/L Carbon Dioxide Level 28.3 MEQ/L 24.4 MEQ/L Anion Gap 11 MEQ/L 13 MEQ/L Blood Urea Nitrogen 78 MG/DL 83 MG/DL Creatinine 3.78 MG/DL 3.33 MG/DL Estimat Glomerular Filtration 14 ML/MIN 16 ML/MIN Rate Random Glucose 159 MG/DL 225 MG/DL Calcium Level 8.6 MG/DL 8.2 MG/DL Magnesium Level 2.3 MG/DL 2.3 MG/DL Lipase 101 U/L Imaging Last Impressions Tube Change 01/22/17 0000 Signed Impressions: Service Date/Time: Sunday, January 22, 2017 15:41 - CONCLUSION: Uncomplicated gastrojejunostomy tube exchange as above. Ryan Stuart MD Gastrostomy Tube Placement 01/18/17 0000 Signed Impressions: Service Date/Time: Wednesday, January 18, 2017 11:08 - CONCLUSION: Uncomplicated gastrojejunostomy tube placement as above. Ryan Stuart MD Chest X-Ray 01/14/17 0000 Signed Impressions: Service Date/Time: January 15:55 - CONCLUSION: Normal examination. Sanford Avina MD Abdomen/Pelvis CT 01/11/17 0000 Signed Impressions: Service Date/Time: Wednesday, January 11, 2017 10:25 - CONCLUSION: 1. Very mild induration around the pancreas, consistent with history of pancreatitis. 2. Biliary stent in place as described above. 3. I do not see an etiology for the patient's abdominal pain. Jamie Tabor MD FACR Objective Remarks General: AAOx3 Chest: CTA Cardiac: Regular Abd: +BS, soft upper abdominal tenderness Ext: No edema A/P Problem List: (1) Chronic recurrent pancreatitis Status: Acute Plan: - comgmt with GI - Pt has had numerous previous admissions d/t recurrent pancreatis. - Pt has followed closely for many years with [facility] and has also been seen at the [facility]. - Pt was last admitted d/t recurrent pancreatitis 11/13/15-01/02/16 and then again for same symptoms 12/14/16-12/26/16. - Pt typically has a reactive leukocytosis with her pancreatitis, and this has been seen on previous admissions. - She previously underwent ERCP with stent placement 11/22/15. Pt had G/J tube placed on 11/28/15, but this was removed. - Most recently she underwent repeat ERCP (12/11/15) with biliary stent exchange with placement of a 10 tuvaluan, 9 cm long plastic stent. - She was actually given steroids at that time with symptomatic improvement. - Pt was again admitted with recurrent pancreatitis and Acute/CKD - She has again had leukocytosis and fever with her pancreatitis - Blood cultures 01/11 and 01/13 ngtd - GJ tube placed on 01/18. That tube malfunctioned and new one placed on 01/22. GJ tube again became clogged on 01/26 and pt was evaluated by IR and GJ tube was exchanged again on 01/27 - TF were resumed with Jevity 1.5 following exchange and free water flushes were increased. Dietary recommending goal rate of 45mL/hr and free water flushes in the J tube of 60mL every 6 hours. - Pt developed recurrent pancreatic pain and rising WBC count and lipase again - Pt was made NPO on 01/24 and continuous tube feeding - When the pt is stable for discharge she will continued on TF at 75ml/hr night tube feeding. - During a previous admission in 2015 she had the same issues with fever and elevated WBC count in the setting of her pancreatitis. She underwent a very extensive workup for infectious etiology which was negative. She had a workup for autoimmune processes which was unrevealing. Pt was started on IV Solu-Medrol for noninfectious inflammatory process and pt had clinical improvement. - Pt was started on IV Solu-Medrol 60mg Q12H on 01/25. - lipase has normalized - WBC 28 (01/26/17) --> 31.4 (01/27/17) --> 19.2 (01/28) - Pt has been afebrile since 01/25. - Tolerating clear liquids, we will not advance past clear liquids at this time. - observe - Narcotics PRN - Creon, Protonix - Anticipate discharge in the next few days - DVT prophylaxis (2) Acute on chronic kidney disease, stage 3 Status: Chronic Plan: - comgmt with Nephrology - Creatinine had decreased to 2.75 on 01/22 but increased to 3.10 on 01/24. - Creatine 3.33 (01/28/17) - Monitor labs. - Appreciate Nephrology consultation for further evaluation. Feel that this is likely related to dehydration but pt has been on IVF since 01/26 with minimal improvement in her Creatinine. Will discuss the case with Nephrology today. - Previous Renal US (12/17/16) --> Echogenic kidneys which can be seen in medical renal disease, bilateral renal cysts, echogenic splenic lesion likely benign and may be related to hemangioma, hypoechoic lesion on the right mid kidney may be related to a complex cyst. (3) HTN (hypertension) Status: Chronic Plan: - metoprolol, cardizem CD (4) Anxiety Status: Chronic Assessment and Plan Patient examined. Assessment and plan formulated with Guadalupe Monson PA-C. I agree with the above. Problem Qualifiers (1) HTN (hypertension): Qualified Code: I10 - Essential hypertension Guadalupe Monson Jan 28, 2017 11:23 Alexander Eddy DO Jan 28, 2017 15:55
[2017-01-28 12:06] VITALS: BP 146/77; PULSE 71; RESP 18; TEMP 98.4; O2SAT 97
[2017-01-28] MEDS ORDERED: JEVILIQ12 JT (12:13)
--- NOTE | 2017-01-28 12:16 | HHI.FF ---
Face to Face Verification Diagnosis: (1) Chronic recurrent pancreatitis (2) Feeding tube obstruction (3) Acute on chronic kidney disease, stage 3 (4) Leukocytosis (5) HTN (hypertension) (6) Anxiety Physical Therapy Order: Evaluate and Treat, Improve ambulation, Strength and gait training Home Health Nursing Order: Signs/symptoms of disease process Nursing assessment with vital signs Instructions: Please assist with TF, Jevity 1.5 at goal rate of 45mL/hr, for continuous TF from 9pm to 7am every night Flush J tube with free water, 60mL every 6 hours Flush G tube with 60mL before and after medication administration I have seen patient Park Larsen on 01/28/17. My clinical findings support the need for the requested home health care services because: Deconditioned w/ increased weakness High risk of falls I certify that my clinical findings support that this patient is homebound because: Unsteady gait/balance Guadalupe Monson Jan 28, 2017 12:16 Alexander Eddy DO Jan 28, 2017 15:55
[2017-01-28] MEDS ORDERED: PRED10 PO (12:20)
--- NOTE | 2017-01-28 13:12 | HHI.NPPN ---
Subjective History of Present Illness 81 year old with CKD 4 ,Recurrent pancreatitis Additional Remarks No acute complaints, Objective Data Data 01/27/17 01/28/17 19:00 07:00 Intake Total 2812 ml Balance 2812 ml Intake Oral 560 ml IV Total 1534 ml Tube Feeding 198 ml Tube Irrigant 120 ml Other 400 ml # Voids 1 5 # Bowel Movements 0 0 Vital Signs Date Time Temp Pulse Resp B/P Pulse Ox O2 Delivery O2 Flow Rate FiO2 01/28/17 08:06 97.8 84 18 149/75 98 01/28/17 04:23 98.4 68 16 132/68 98 01/28/17 04:23 Room Air 01/28/17 00:46 98.0 73 16 148/72 98 01/28/17 00:46 Room Air 01/27/17 20:00 98.3 77 18 155/75 100 01/27/17 20:00 Room Air 01/27/17 16:33 97.6 77 18 150/77 100 01/27/17 14:20 70 18 164/86 94 01/27/17 13:50 70 16 165/82 95 01/27/17 13:20 68 15 154/80 95 01/27/17 13:05 72 16 154/85 93 -: 01/28/17 0711 01/28/17 0711 Physical Exam General Appearance: Well Developed Neck Neck Exam: Neck Supple Pulmonary Resp Exam: Clear Bilaterally, Breath Sounds Equal Cardiology CV Exam: Regular Gastrointestinal/Abdomen GI Exam: Soft Integumentary Skin Exam: Clear Extremeties Extremities Exam: No Edema Neurologic Neuro Exam: Alert Assessment/Plan Problem List: (1) Acute renal insufficiency Plan: Patient has CKD baseline Creatinine 3-> 2.7 -> 3.1 --> 3.7 --> 3.3 Creatinine declined IVF was given last night and she did not have IVF for last several days prior to that looking at I/O Dr. Eddy/Ms Monson note indicates she was getting hydration all along but that is not the case each time she is hydrated her Cr improved There no indication for dialysis as GFR 16 beside her kidney functions are better, there is no acidosis, no hyperkalemia\ she is frail old lady and has co morbid conditions will hold off dialysis unless GFR less then 10 or symptomatic had G- J tube changed continue tube feeds (2) CKD (chronic kidney disease) stage 4, GFR 15-29 ml/min Plan: Will monitor kidney situation (3) Chronic recurrent pancreatitis Plan: getting TF (4) Leukocytosis Plan: She has neg cultures (5) Anemia Plan: Continue to monitor Problem Qualifiers (1) Anemia: Qualified Code: D64.89 - Anemia due to other cause, not classified Arnaldo Melara MD Jan 28, 2017 13:11
[2017-01-28 16:05] VITALS: BP 159/80; PULSE 80; RESP 18; TEMP 98.7; O2SAT 97
[2017-01-28 20:00] VITALS: BP 150/74; PULSE 74; RESP 18; TEMP 98; O2SAT 95
[2017-01-29] VITALS (7 sets, daily range): BP systolic 151–165; BP diastolic 69–81; PULSE 66–82; RESP 18–20; TEMP 97.6–98.1; O2SAT 96–100
[2017-01-29] MEDS: ACETAMINOPHEN/HYDROcodone 325 MG/5 MG TAB PO PRN ×5 (03:18→23:57)
[2017-01-29 05:51] LABS: AUTOMATED NEUTROPHIL # 16.3 TH/MM3 (1.8-7.7); BASOPHIL % 0.2 % (0.0-2.0); HEMATOCRIT 25.9 % (35.0-46.0); LYMPH % 3.6 % (9.0-44.0); LYMPHOCYTE # 0.6 TH/MM3 (1.0-4.8); MEAN CELL VOLUME 82.5 FL (80.0-100.0); MEAN CORPUSCULAR HEMOGLOBIN 25.7 PG (27.0-34.0); MEAN CORPUSCULAR HGB CONC 31.2 % (32.0-36.0); NEUT % 95.2 % (16.0-70.0); PLATELET COUNT 468 TH/MM3 (150-450); RED BLOOD COUNT 3.14 MIL/MM3 (4.00-5.30); RED CELL DISTRIBUTION WIDTH 16.2 % (11.6-17.2); WHITE BLOOD COUNT 17.1 TH/MM3 (4.0-11.0)
[2017-01-29 05:54] LABS: HEMO FLAGS AUTO DIFF
[2017-01-29 06:07] LABS: BICARBONATE 24.9 MEQ/L (21.0-32.0); MAGNESIUM 2.3 MG/DL (1.5-2.5); POTASSIUM 4.5 MEQ/L (3.5-5.1)
[2017-01-29 07:20] LABS: BANDS 8 % (0-6); METAMYELOCYTES 2 % (0-1); MYELOCYTES 3 % (0-0); NEUTROPHIL # MANUAL DIFF 13.9 TH/MM3 (1.8-7.7); PLATELET ESTIMATE SMEAR NORMAL (NORMAL); PLATELET MORPHOLOGY NORMAL (NORMAL); POLYS (SEG NEUTROPHILS) 68 % (16-70); SCAN/DIFF FINAL DIFF MANUAL; WBC DIFF SAMPLE 100
[2017-01-29] MEDS: PANTOPRAZOLE SOD 40 MG DELAYED RELEASE TAB PO SCH ×2 (09:48→20:06)
[2017-01-29] MEDS: DILTIAZEM-CD 120 MG CAP ER PO SCH (09:50)
[2017-01-29] MEDS: SUCRALFATE 1 GM TAB PO SCH ×3 (09:50→16:04)
[2017-01-29] MEDS: methylPREDNISolone SOD SUCC 125 MG/2 ML VIAL IV PUSH SCH ×2 (09:50→20:06)
[2017-01-29] MEDS: LIPASE/PROTEASE/AMYLASE (12,000/38,000/60,000) CAP PO SCH ×3 (09:50→16:04)
[2017-01-29] MEDS: METOPROLOL TARTRATE 25 MG TAB PO SCH ×2 (09:50→20:06)
[2017-01-29] MEDS: SODIUM CHLORIDE 0.9% FLUSH 5 ML FLUSH FLUSH SCH ×2 (09:52→20:06)
--- NOTE | 2017-01-29 12:42 | HHI.NPPN ---
Subjective History of Present Illness 81 year old with CKD 4 ,Recurrent pancreatitis Additional Remarks No acute complaints, Objective Data Data 01/28/17 01/29/17 19:00 07:00 Intake Total 1191 ml 2335 ml Output Total 480 ml 200 ml Balance 711 ml 2135 ml Intake Oral 100 ml 360 ml IV Total 721 ml 988 ml Tube Feeding 370 ml 987 ml Output Urine Total 480 ml 200 ml # Voids 2 # Bowel Movements 0 2 Vital Signs Date Time Temp Pulse Resp B/P Pulse Ox O2 Delivery O2 Flow Rate FiO2 01/29/17 08:05 97.9 82 20 163/76 100 01/29/17 04:30 154/70 01/29/17 04:00 97.6 72 18 160/71 98 01/29/17 00:00 97.9 70 18 151/78 96 01/28/17 20:00 Room Air 01/28/17 20:00 98.0 74 18 150/74 95 01/28/17 16:05 98.7 80 18 159/80 97 -: 01/29/17 0522 01/29/17 0522 Physical Exam General Appearance: Well Developed Neck Neck Exam: Neck Supple Pulmonary Resp Exam: Clear Bilaterally, Breath Sounds Equal Cardiology CV Exam: Regular Gastrointestinal/Abdomen GI Exam: Soft Integumentary Skin Exam: Clear Extremeties Extremities Exam: No Edema Neurologic Neuro Exam: Alert Assessment/Plan Problem List: (1) Acute renal insufficiency Plan: Patient has CKD baseline Creatinine 3-> 2.7 -> 3.1 --> 3.7 --> 3.3 --> 2.9 Creatinine declined IVF improved GFR 19 continue with conservative approach give Procrit Hb low had G- J tube changed continue tube feeds (2) CKD (chronic kidney disease) stage 4, GFR 15-29 ml/min Plan: Will monitor kidney situation (3) Chronic recurrent pancreatitis Plan: getting TF (4) Leukocytosis Plan: She has neg cultures (5) Anemia Plan: Continue to monitor Problem Qualifiers (1) Anemia: Qualified Code: D64.89 - Anemia due to other cause, not classified Arnaldo Melara MD Jan 29, 2017 12:42
[2017-01-29] MEDS ORDERED: EPOETIN ALFA 20,000 UNITS/ML VIAL SQ ONE (12:45)
--- NOTE | 2017-01-29 14:15 | HHI.PR ---
Subjective Remarks No new complaints. Objective Vitals Vital Signs Date Time Temp Pulse Resp B/P Pulse Ox O2 Delivery O2 Flow Rate FiO2 01/29/17 12:03 97.8 68 20 161/81 100 01/29/17 08:05 97.9 82 20 163/76 100 01/29/17 04:30 154/70 01/29/17 04:00 97.6 72 18 160/71 98 01/29/17 00:00 97.9 70 18 151/78 96 01/28/17 20:00 Room Air 01/28/17 20:00 98.0 74 18 150/74 95 01/28/17 16:05 98.7 80 18 159/80 97 01/28/17 01/28/17 01/29/17 15:00 23:00 07:00 Intake Total 100 ml 1211 ml 2215 ml Output Total 480 ml 200 ml Balance -380 ml 1211 ml 2015 ml Intake Oral 100 ml 120 ml 240 ml IV Total 721 ml 988 ml Tube Feeding 370 ml 987 ml Output Urine Total 480 ml 200 ml # Voids 2 # Bowel Movements 0 1 1 Result Diagram: 01/29/1722 01/29/17521 Other Results Laboratory Tests Test 01/28/17 01/29/17 07:11 05:22 White Blood Count 19.2 TH/MM3 17.1 TH/MM3 Red Blood Count 3.07 MIL/MM3 3.14 MIL/MM3 Hemoglobin 8.0 GM/DL 8.1 GM/DL Hematocrit 25.5 % 25.9 % Mean Corpuscular Volume 83.2 FL 82.5 FL Mean Corpuscular Hemoglobin 26.2 PG 25.7 PG Mean Corpuscular Hemoglobin 31.5 % 31.2 % Concent Red Cell Distribution Width 16.8 % 16.2 % Platelet Count 518 TH/MM3 468 TH/MM3 Mean Platelet Volume 8.2 FL 8.1 FL Neutrophils (%) (Auto) 93.9 % 95.2 % Lymphocytes (%) (Auto) 4.6 % 3.6 % Monocytes (%) (Auto) 1.3 % 1.0 % Eosinophils (%) (Auto) 0.0 % 0.0 % Basophils (%) (Auto) 0.2 % 0.2 % Neutrophils # (Auto) 18.0 TH/MM3 16.3 TH/MM3 Lymphocytes # (Auto) 0.9 TH/MM3 0.6 TH/MM3 Monocytes # (Auto) 0.2 TH/MM3 0.2 TH/MM3 Eosinophils # (Auto) 0.0 TH/MM3 0.0 TH/MM3 Basophils # (Auto) 0.0 TH/MM3 0.0 TH/MM3 CBC Comment AUTO DIFF AUTO DIFF Differential Comment AUTO DIFF FINAL DIFF CONFIRMED MANUAL Sodium Level 143 MEQ/L 141 MEQ/L Potassium Level 4.5 MEQ/L 4.5 MEQ/L Chloride Level 106 MEQ/L 105 MEQ/L Carbon Dioxide Level 24.4 MEQ/L 24.9 MEQ/L Anion Gap 13 MEQ/L 11 MEQ/L Blood Urea Nitrogen 83 MG/DL 80 MG/DL Creatinine 3.33 MG/DL 2.95 MG/DL Estimat Glomerular Filtration 16 ML/MIN 19 ML/MIN Rate Random Glucose 225 MG/DL 297 MG/DL Calcium Level 8.2 MG/DL 7.5 MG/DL Magnesium Level 2.3 MG/DL 2.3 MG/DL Differential Total Cells 100 Counted Neutrophils % (Manual) 68 % Band Neutrophils % 8 % Lymphocytes % 17 % Monocytes % 2 % Neutrophils # (Manual) 13.9 TH/MM3 Metamyelocytes 2 % Myelocytes 3 % Platelet Estimate NORMAL Platelet Morphology Comment NORMAL Imaging Last Impressions Tube Change 01/22/17 0000 Signed Impressions: Service Date/Time: Sunday, January 22, 2017 15:41 - CONCLUSION: Uncomplicated gastrojejunostomy tube exchange as above. Ryan Stuart MD Gastrostomy Tube Placement 01/18/17 0000 Signed Impressions: Service Date/Time: Wednesday, January 18, 2017 11:08 - CONCLUSION: Uncomplicated gastrojejunostomy tube placement as above. Ryan Stuart MD Chest X-Ray 01/14/17 0000 Signed Impressions: Service Date/Time: January 15:55 - CONCLUSION: Normal examination. Sanford Avina MD Abdomen/Pelvis CT 01/11/17 0000 Signed Impressions: Service Date/Time: Wednesday, January 11, 2017 10:25 - CONCLUSION: 1. Very mild induration around the pancreas, consistent with history of pancreatitis. 2. Biliary stent in place as described above. 3. I do not see an etiology for the patient's abdominal pain. Jamie Tabor MD FACR Objective Remarks General: AAOx3 Chest: CTA Cardiac: Regular Abd: +BS, nontender Ext: No edema A/P Problem List: (1) Chronic recurrent pancreatitis Status: Acute Plan: - comgmt with GI - Pt has had numerous previous admissions d/t recurrent pancreatis. - Pt has followed closely for many years with [facility] and has also been seen at the [facility]. - Pt was last admitted d/t recurrent pancreatitis 11/13/15-01/02/16 and then again for same symptoms 12/14/16-12/26/16. - Pt typically has a reactive leukocytosis with her pancreatitis, and this has been seen on previous admissions. - She previously underwent ERCP with stent placement 11/22/15. Pt had G/J tube placed on 11/28/15, but this was removed. - Most recently she underwent repeat ERCP (12/11/15) with biliary stent exchange with placement of a 10 hebrew, 9 cm long plastic stent. - She was actually given steroids at that time with symptomatic improvement. - Pt was again admitted with recurrent pancreatitis and Acute/CKD - She has again had leukocytosis and fever with her pancreatitis - Blood cultures 01/11 and 01/13 ngtd - GJ tube placed on 01/18. That tube malfunctioned and new one placed on 01/22. GJ tube again became clogged on 01/26 and pt was evaluated by IR and GJ tube was exchanged again on 01/27 - TF were resumed with Jevity 1.5 following exchange and free water flushes were increased. Dietary recommending goal rate of 45mL/hr and free water flushes in the J tube of 60mL every 6 hours. - Pt developed recurrent pancreatic pain and rising WBC count and lipase again - Pt was made NPO on 01/24 and continuous tube feeding - When the pt is stable for discharge she will continued on TF at 75ml/hr night tube feeding. - During a previous admission in 2015 she had the same issues with fever and elevated WBC count in the setting of her pancreatitis. She underwent a very extensive workup for infectious etiology which was negative. She had a workup for autoimmune processes which was unrevealing. Pt was started on IV Solu-Medrol for noninfectious inflammatory process and pt had clinical improvement. - Pt was started on IV Solu-Medrol 60mg Q12H on 01/25. - lipase has normalized - WBC 28 (01/26/17) --> 31.4 (01/27/17) --> 19.2 (01/28) --> 17.1 (01/29/17) - Pt has been afebrile since 01/25. - Tolerating clear liquids, we will not advance past clear liquids at this time. - To be be given Procrit today. - observe - Narcotics PRN - Creon, Protonix - Anticipate discharge in the next few days - DVT prophylaxis (2) Acute on chronic kidney disease, stage 3 Status: Chronic Plan: - comgmt with Nephrology - Creatine 2.9 (01/29/17) - Monitor labs. - Cont. gentle IVF - Appreciate Nephrology consultation for further evaluation. Feel that this is likely related to dehydration but pt has been on IVF since 01/26 with minimal improvement in her Creatinine. Nephrology recommending continued conservative management. - Previous Renal US (12/17/16) --> Echogenic kidneys which can be seen in medical renal disease, bilateral renal cysts, echogenic splenic lesion likely benign and may be related to hemangioma, hypoechoic lesion on the right mid kidney may be related to a complex cyst. (3) HTN (hypertension) Status: Chronic Plan: - Pt is on Metoprolol 25mg po BID, Cardizem CD 120mg po daily - BP has been elevated with systolic BP into the 150-160's (4) Anxiety Status: Chronic Assessment and Plan Patient examined. Assessment and plan formulated with Guadalupe Monson PA-C. I agree with the above. Problem Qualifiers (1) HTN (hypertension): Qualified Code: I10 - Essential hypertension Guadalupe Monson Jan 29, 2017 14:15 Alexander Eddy DO Jan 29, 2017 15:46
[2017-01-29] MEDS: SODIUM CHLOR 0.9% 1000 ML INJ 1,000 ML IV SCH (23:55)
[2017-01-30] VITALS (7 sets, daily range): BP systolic 162–188; BP diastolic 60–90; PULSE 74–85; RESP 18–20; TEMP 97.7–98.4; O2SAT 95–100
[2017-01-30] MEDS: SODIUM CHLOR 0.9% 1000 ML INJ 1,000 ML IV SCH (04:55)
[2017-01-30] MEDS: ACETAMINOPHEN/HYDROcodone 325 MG/5 MG TAB PO PRN ×5 (05:45→20:03)
[2017-01-30] MEDS: methylPREDNISolone SOD SUCC 125 MG/2 ML VIAL IV PUSH SCH (08:30)
[2017-01-30] MEDS: DILTIAZEM-CD 120 MG CAP ER PO SCH (08:30)
[2017-01-30] MEDS: METOPROLOL TARTRATE 25 MG TAB PO SCH ×2 (08:30→20:02)
[2017-01-30] MEDS: SUCRALFATE 1 GM TAB PO SCH ×3 (08:30→15:40)
[2017-01-30] MEDS: PANTOPRAZOLE SOD 40 MG DELAYED RELEASE TAB PO SCH ×2 (08:30→20:02)
[2017-01-30] MEDS: SODIUM CHLORIDE 0.9% FLUSH 5 ML FLUSH FLUSH SCH ×2 (08:33→20:05)
[2017-01-30] MEDS: LIPASE/PROTEASE/AMYLASE (12,000/38,000/60,000) CAP PO SCH ×3 (08:36→18:42)
[2017-01-30 09:03] LABS: AUTOMATED NEUTROPHIL # 23.4 TH/MM3 (1.8-7.7); BASOPHIL % 0.1 % (0.0-2.0); EOSINOPHIL # 0.2 TH/MM3 (0-0.4); EOSINOPHIL % 0.8 % (0.0-4.0); HEMATOCRIT 28.2 % (35.0-46.0); LYMPH % 4.3 % (9.0-44.0); LYMPHOCYTE # 1.1 TH/MM3 (1.0-4.8); MEAN CELL VOLUME 83.6 FL (80.0-100.0); MEAN CORPUSCULAR HEMOGLOBIN 26.2 PG (27.0-34.0); MEAN CORPUSCULAR HGB CONC 31.4 % (32.0-36.0); MONO % 1.1 % (0.0-8.0); NEUT % 93.7 % (16.0-70.0); PLATELET COUNT 516 TH/MM3 (150-450); RED BLOOD COUNT 3.37 MIL/MM3 (4.00-5.30); WHITE BLOOD COUNT 24.9 TH/MM3 (4.0-11.0)
[2017-01-30 09:06] LABS: HEMO FLAGS AUTO DIFF
[2017-01-30 09:44] LABS: BANDS 8 % (0-6); CORRECTED NUCLEATED RBC 1 /100 WBC (0-0); METAMYELOCYTES 4 % (0-1); MYELOCYTES 5 % (0-0); NEUTROPHIL # MANUAL DIFF 23.2 TH/MM3 (1.8-7.7); POLYS (SEG NEUTROPHILS) 76 % (16-70); WBC DIFF SAMPLE 100
[2017-01-30 09:45] LABS: ACANTHOCYTES OCC (NORMAL); PLATELET ESTIMATE SMEAR HIGH (NORMAL)
[2017-01-30 09:47] LABS: HELMET CELLS OCC (NORMAL); PLATELET MORPHOLOGY NORMAL (NORMAL); SCAN/DIFF FINAL DIFF MANUAL
[2017-01-30 10:06] LABS: BICARBONATE 24.7 MEQ/L (21.0-32.0); MAGNESIUM 2.3 MG/DL (1.5-2.5); POTASSIUM 4.2 MEQ/L (3.5-5.1)
[2017-01-30 10:40] LABS: CALCIUM-PROTEIN CORRECTED 7.7 MG/DL (8.5-10.1)
[2017-01-30] MEDS ORDERED: INSULIN ASPART 1,000 UNITS/10 ML VIAL SQ ONE ×2 (12:15→15:30)
--- NOTE | 2017-01-30 12:37 | HHI.NPPN ---
Subjective History of Present Illness 81 year old with CKD 4 ,Recurrent pancreatitis Additional Remarks Patient is alert, on liquids, not taking much, has mild abd. pain and nausea. Objective Data Data 01/29/17 01/30/17 19:00 07:00 Intake Total 1145 ml 2841 ml Balance 1145 ml 2841 ml Intake Oral 360 ml 240 ml IV Total 1161 ml Tube Feeding 385 ml 1240 ml Other 400 ml 200 ml # Voids 4 3 # Bowel Movements 1 0 Vital Signs Date Time Temp Pulse Resp B/P Pulse Ox O2 Delivery O2 Flow Rate FiO2 01/30/17 12:18 98.3 74 18 175/88 95 01/30/17 08:19 97.7 85 18 172/84 96 01/30/17 08:00 Room Air 01/30/17 04:00 98.2 78 18 164/70 96 01/30/17 04:00 Room Air 01/30/17 00:04 98.1 76 18 162/60 97 01/30/17 00:00 Room Air 01/29/17 20:05 98.1 73 18 165/69 97 01/29/17 20:00 Room Air 01/29/17 20:00 Room Air 01/29/17 16:05 97.8 66 20 160/77 100 -: 01/30/17 0843 01/30/17 0843 Physical Exam General Appearance: No Acute Distress, Comfortable Neck Neck Exam: Neck Supple Pulmonary Resp Exam: Breath Sounds Equal, No Distress, Decreased Bases Cardiology CV Exam: Regular Gastrointestinal/Abdomen GI Exam: Soft, Bowel Sounds Present, Distended Integumentary Skin Exam: Clear Extremeties Extremities Exam: No Edema Neurologic Neuro Exam: Alert, Awake Assessment/Plan Problem List: (1) Acute renal insufficiency Plan: Patient has CKD baseline Creatinine continue to improve. Has an element of WAYNE, possibly pre renal. continue with conservative approach given Procrit Hb low had G- J tube changed continue tube feeds, also started oral liquids. Continue gentle hydration. (2) CKD (chronic kidney disease) stage 4, GFR 15-29 ml/min Plan: Will monitor kidney situation (3) Chronic recurrent pancreatitis Plan: getting TF (4) Leukocytosis Plan: She has neg cultures (5) Anemia Plan: Continue to monitor Problem Qualifiers (1) Anemia: Qualified Code: D64.89 - Anemia due to other cause, not classified Aaliyah Kennedy MD Jan 30, 2017 12:37
--- NOTE | 2017-01-30 15:21 | HHI.PR ---
Subjective Remarks No new complaints. Pt is tolerating clears Objective Vitals Vital Signs Date Time Temp Pulse Resp B/P Pulse Ox O2 Delivery O2 Flow Rate FiO2 01/30/17 12:56 79 164/83 01/30/17 12:18 98.3 74 18 175/88 95 01/30/17 08:19 97.7 85 18 172/84 96 01/30/17 08:00 Room Air 01/30/17 04:00 98.2 78 18 164/70 96 01/30/17 04:00 Room Air 01/30/17 00:04 98.1 76 18 162/60 97 01/30/17 00:00 Room Air 01/29/17 20:05 98.1 73 18 165/69 97 01/29/17 20:00 Room Air 01/29/17 20:00 Room Air 01/29/17 16:05 97.8 66 20 160/77 100 01/29/17 01/29/17 01/30/17 15:00 23:00 07:00 Intake Total 945 ml 1982 ml 1059 ml Balance 945 ml 1982 ml 1059 ml Intake Oral 360 ml 240 ml IV Total 669 ml 492 ml Tube Feeding 385 ml 773 ml 467 ml Other 200 ml 300 ml 100 ml # Voids 4 3 # Bowel Movements 1 0 Result Diagram: 01/30/17 0843 01/30/17 0843 Imaging Last Impressions Tube Change 01/22/17 0000 Signed Impressions: Service Date/Time: Sunday, January 22, 2017 15:41 - CONCLUSION: Uncomplicated gastrojejunostomy tube exchange as above. Ryan Stuart MD Gastrostomy Tube Placement 01/18/17 0000 Signed Impressions: Service Date/Time: Wednesday, January 18, 2017 11:08 - CONCLUSION: Uncomplicated gastrojejunostomy tube placement as above. Ryan Stuart MD Chest X-Ray 01/14/17 0000 Signed Impressions: Service Date/Time: January 15:55 - CONCLUSION: Normal examination. Sanford Avina MD Abdomen/Pelvis CT 01/11/17 0000 Signed Impressions: Service Date/Time: Wednesday, January 11, 2017 10:25 - CONCLUSION: 1. Very mild induration around the pancreas, consistent with history of pancreatitis. 2. Biliary stent in place as described above. 3. I do not see an etiology for the patient's abdominal pain. Jamie Tabor MD FACR Objective Remarks General: AAOx3 Chest: CTA Cardiac: Regular Abd: +BS, nontender Ext: No edema A/P Problem List: (1) Chronic recurrent pancreatitis Status: Acute Plan: - comgmt with GI - Pt has had numerous previous admissions d/t recurrent pancreatis. - Pt has followed closely for many years with [facility] and has also been seen at the [facility]. - Pt was last admitted d/t recurrent pancreatitis 11/13/15-01/02/16 and then again for same symptoms 12/14/16-12/26/16. - Pt typically has a reactive leukocytosis with her pancreatitis, and this has been seen on previous admissions. - She previously underwent ERCP with stent placement 11/22/15. Pt had G/J tube placed on 11/28/15, but this was removed. - Most recently she underwent repeat ERCP (12/11/15) with biliary stent exchange with placement of a 10 [place], 9 cm long plastic stent. - She was actually given steroids at that time with symptomatic improvement. - Pt was again admitted with recurrent pancreatitis and Acute/CKD - She has again had leukocytosis and fever with her pancreatitis - Blood cultures 01/11 and 01/13 ngtd - GJ tube placed on 01/18. That tube malfunctioned and new one placed on 01/22. GJ tube again became clogged on 01/26 and pt was evaluated by IR and GJ tube was exchanged again on 01/27 - TF were resumed with Jevity 1.5 following exchange and free water flushes were increased. Dietary recommending goal rate of 45mL/hr and free water flushes in the J tube of 60mL every 6 hours. - Pt developed recurrent pancreatic pain and rising WBC count and lipase again - Pt was made NPO on 01/24 and continuous tube feeding - When the pt is stable for discharge she will continued on TF at 75ml/hr night tube feeding. - During a previous admission in 2015 she had the same issues with fever and elevated WBC count in the setting of her pancreatitis. She underwent a very extensive workup for infectious etiology which was negative. She had a workup for autoimmune processes which was unrevealing. Pt was started on IV Solu-Medrol for noninfectious inflammatory process and pt had clinical improvement. - change IV solumedrol to PO prednisone - lipase has normalized - WBC 28 (01/26/17) --> 31.4 (01/27/17) --> 19.2 (01/28) --> 17.1 (01/29/17) --> 24.9 - Pt has been afebrile since 01/25. - Tolerating clear liquids, we will not advance past clear liquids at this time. - given Procrit (01/29/17) - observe - Narcotics PRN - Creon, Protonix - Anticipate discharge in the next few days - DVT prophylaxis (2) Steroid-induced hyperglycemia Status: Acute Plan: - change IV solumedrol to PO prednisone - SSI - levemir 10 units BID - observe closely (3) Acute on chronic kidney disease, stage 3 Status: Chronic Plan: - comgmt with Nephrology - Creatine 2.9 (01/29/17), Cr 2.71 (01/30/17) - Monitor labs. - Cont. gentle IVF - Appreciate Nephrology consultation for further evaluation. Feel that this is likely related to dehydration but pt has been on IVF since 01/26 with minimal improvement in her Creatinine. Nephrology recommending continued conservative management. - Previous Renal US (12/17/16) --> Echogenic kidneys which can be seen in medical renal disease, bilateral renal cysts, echogenic splenic lesion likely benign and may be related to hemangioma, hypoechoic lesion on the right mid kidney may be related to a complex cyst. (4) HTN (hypertension) Status: Chronic Plan: - Pt is on Metoprolol 25mg po BID - change cardizem CD to procardia XL 60mg daily - observe BP readings (5) Anxiety Status: Chronic Problem Qualifiers (1) HTN (hypertension): Qualified Code: I10 - Essential hypertension Alexander Eddy DO Jan 30, 2017 15:21
[2017-01-30] MEDS: NIFEdipine 60 MG SUSTAINED RELEASE TAB PO SCH (15:39)
[2017-01-30] MEDS: INSULIN ASPART SUPPLEMENTAL SCALE SQ SCH ×2 (15:40→20:01)
[2017-01-30] MEDS: ONDANSETRON HCL 4 MG/2 ML VIAL IVP PRN (15:50)
[2017-01-30] MEDS: INSULIN DETEMIR 100 UNITS/ML VIAL SQ SCH (20:01)
[2017-01-30] MEDS: predniSONE 20 MG TAB PO SCH (20:02)
[2017-01-31] VITALS: BP 110/60; PULSE 75; RESP 18; TEMP 98.4; O2SAT 96
[2017-01-31] MEDS: SODIUM CHLOR 0.9% 1000 ML INJ 1,000 ML IV SCH ×2 (01:18→20:31)
[2017-01-31] MEDS: ACETAMINOPHEN/HYDROcodone 325 MG/5 MG TAB PO PRN ×6 (01:20→20:30)
[2017-01-31] MEDS: ONDANSETRON HCL 4 MG/2 ML VIAL IVP PRN (01:23)
[2017-01-31 04:00] VITALS: BP 141/68; PULSE 90; RESP 18; TEMP 98.5; O2SAT 95
[2017-01-31] MEDS: INSULIN ASPART SUPPLEMENTAL SCALE SQ SCH ×4 (06:58→20:31)
[2017-01-31] MEDS: SUCRALFATE 1 GM TAB PO SCH ×3 (07:01→16:28)
[2017-01-31] MEDS: predniSONE 20 MG TAB PO SCH ×2 (08:06→20:30)
[2017-01-31] MEDS: METOPROLOL TARTRATE 25 MG TAB PO SCH ×2 (08:06→20:30)
[2017-01-31] MEDS: SODIUM CHLORIDE 0.9% FLUSH 5 ML FLUSH FLUSH SCH ×2 (08:06→20:31)
[2017-01-31] MEDS: LIPASE/PROTEASE/AMYLASE (12,000/38,000/60,000) CAP PO SCH ×3 (08:06→16:29)
[2017-01-31] MEDS: INSULIN DETEMIR 100 UNITS/ML VIAL SQ SCH ×2 (08:06→20:30)
[2017-01-31] MEDS: NIFEdipine 60 MG SUSTAINED RELEASE TAB PO SCH (08:06)
[2017-01-31] MEDS: PANTOPRAZOLE SOD 40 MG DELAYED RELEASE TAB PO SCH ×2 (08:06→20:30)
[2017-01-31 08:18] VITALS: BP 137/65; PULSE 94; RESP 20; TEMP 97.8; O2SAT 97
[2017-01-31 12:21] VITALS: BP 135/66; PULSE 80; RESP 20; TEMP 98.2; O2SAT 99
--- NOTE | 2017-01-31 12:44 | HHI.NPPN ---
Subjective History of Present Illness 81 year old with CKD 4 ,Recurrent pancreatitis Additional Remarks Patient is alert, has abd. discomfort and constipation. Objective Data Data 01/30/17 01/31/17 19:00 07:00 Intake Total 1280 ml 340 ml Balance 1280 ml 340 ml Intake Oral 480 ml 340 ml IV Total 800 ml # Voids 3 4 # Bowel Movements 0 0 Vital Signs Date Time Temp Pulse Resp B/P Pulse Ox O2 Delivery O2 Flow Rate FiO2 01/31/17 12:21 98.2 80 20 135/66 99 01/31/17 08:18 97.8 94 20 137/65 97 01/31/17 08:00 Room Air 01/31/17 04:00 98.5 90 18 141/68 95 01/31/17 00:00 98.4 75 18 110/60 96 01/30/17 20:00 98.2 84 18 167/80 96 01/30/17 19:30 Room Air 01/30/17 16:14 98.4 76 20 188/90 100 01/30/17 12:56 79 164/83 -: 01/30/17 0843 01/30/17 0843 Physical Exam General Appearance: No Acute Distress, Comfortable Neck Neck Exam: Neck Supple Pulmonary Resp Exam: Breath Sounds Equal, No Distress, Decreased Bases Cardiology CV Exam: Regular Gastrointestinal/Abdomen GI Exam: Soft, Bowel Sounds Present, Distended Integumentary Skin Exam: Clear Extremeties Extremities Exam: No Edema Neurologic Neuro Exam: Alert, Awake Assessment/Plan Problem List: (1) Acute renal insufficiency Plan: Patient has CKD baseline Creatinine continue to improve. Has an element of WAYNE, possibly pre renal. continue with conservative approach given Procrit Hb low had G- J tube changed continue tube feeds, also started oral liquids. No new BMP. Check in AM and Mattie-Colace for constipation. (2) CKD (chronic kidney disease) stage 4, GFR 15-29 ml/min Plan: Will monitor kidney situation (3) Chronic recurrent pancreatitis Plan: getting TF (4) Leukocytosis Plan: She has neg cultures (5) Anemia Plan: Continue to monitor Problem Qualifiers (1) Anemia: Qualified Code: D64.89 - Anemia due to other cause, not classified Aaliyah Kennedy MD Jan 31, 2017 12:44
--- NOTE | 2017-01-31 16:26 | HHI.PR ---
Subjective Remarks No new complaints. Objective Vitals Vital Signs Date Time Temp Pulse Resp B/P Pulse Ox O2 Delivery O2 Flow Rate FiO2 01/31/17 12:21 98.2 80 20 135/66 99 01/31/17 08:18 97.8 94 20 137/65 97 01/31/17 08:00 Room Air 01/31/17 04:00 98.5 90 18 141/68 95 01/31/17 00:00 98.4 75 18 110/60 96 01/30/17 20:00 98.2 84 18 167/80 96 01/30/17 19:30 Room Air 01/30/17 01/30/17 01/31/17 15:00 23:00 07:00 Intake Total 1280 ml 240 ml 100 ml Balance 1280 ml 240 ml 100 ml Intake Oral 480 ml 240 ml 100 ml IV Total 800 ml # Voids 3 2 2 # Bowel Movements 0 0 0 Result Diagram: 01/30/17 0843 01/30/17 0843 Imaging Last Impressions Tube Change 01/22/17 0000 Signed Impressions: Service Date/Time: Sunday, January 22, 2017 15:41 - CONCLUSION: Uncomplicated gastrojejunostomy tube exchange as above. Ryan Stuart MD Gastrostomy Tube Placement 01/18/17 0000 Signed Impressions: Service Date/Time: Wednesday, January 18, 2017 11:08 - CONCLUSION: Uncomplicated gastrojejunostomy tube placement as above. Ryan Stuart MD Chest X-Ray 01/14/17 0000 Signed Impressions: Service Date/Time: January 15:55 - CONCLUSION: Normal examination. Sanford Avina MD Abdomen/Pelvis CT 01/11/17 0000 Signed Impressions: Service Date/Time: Wednesday, January 11, 2017 10:25 - CONCLUSION: 1. Very mild induration around the pancreas, consistent with history of pancreatitis. 2. Biliary stent in place as described above. 3. I do not see an etiology for the patient's abdominal pain. Jamie Tabor MD FACR Objective Remarks General: AAOx3 Chest: CTA Cardiac: Regular Abd: +BS, nontender Ext: No edema A/P Problem List: (1) Chronic recurrent pancreatitis Status: Acute Plan: - comgmt with GI - Pt has had numerous previous admissions d/t recurrent pancreatis. - Pt has followed closely for many years with [facility] and has also been seen at the [facility]. - Pt was last admitted d/t recurrent pancreatitis 11/13/15-01/02/16 and then again for same symptoms 12/14/16-12/26/16. - Pt typically has a reactive leukocytosis with her pancreatitis, and this has been seen on previous admissions. - She previously underwent ERCP with stent placement 11/22/15. Pt had G/J tube placed on 11/28/15, but this was removed. - Most recently she underwent repeat ERCP (12/11/15) with biliary stent exchange with placement of a 10 [place], 9 cm long plastic stent. - She was actually given steroids at that time with symptomatic improvement. - Pt was again admitted with recurrent pancreatitis and Acute/CKD - She has again had leukocytosis and fever with her pancreatitis - Blood cultures 01/11 and 01/13 ngtd - GJ tube placed on 01/18. That tube malfunctioned and new one placed on 01/22. GJ tube again became clogged on 01/26 and pt was evaluated by IR and GJ tube was exchanged again on 01/27 - TF were resumed with Jevity 1.5 following exchange and free water flushes were increased. Dietary recommending goal rate of 45mL/hr and free water flushes in the J tube of 60mL every 6 hours. - Pt developed recurrent pancreatic pain and rising WBC count and lipase again - When the pt is stable for discharge she will continued on TF at 75ml/hr night tube feeding. - During a previous admission in 2015 she had the same issues with fever and elevated WBC count in the setting of her pancreatitis. She underwent a very extensive workup for infectious etiology which was negative. She had a workup for autoimmune processes which was unrevealing. Pt was started on IV Solu-Medrol for noninfectious inflammatory process and pt had clinical improvement. - PO prednisone - lipase has normalized - WBC 28 (01/26/17) --> 31.4 (01/27/17) --> 19.2 (01/28) --> 17.1 (01/29/17) --> 24.9 - Pt has been afebrile since 01/25. - Tolerating clear liquids, we will not advance past clear liquids at this time. - given Procrit (01/29/17) - observe - Narcotics PRN - Creon, Protonix - Anticipate discharge in the next 1-2 days - DVT prophylaxis (2) Steroid-induced hyperglycemia Status: Acute Plan: - change IV solumedrol to PO prednisone - SSI - levemir 10 units BID - observe closely (3) Acute on chronic kidney disease, stage 3 Status: Chronic Plan: - comgmt with Nephrology - Creatine 2.9 (01/29/17), Cr 2.71 (01/30/17) - Monitor labs. - Cont. gentle IVF - Appreciate Nephrology consultation for further evaluation. Feel that this is likely related to dehydration but pt has been on IVF since 01/26 with minimal improvement in her Creatinine. Nephrology recommending continued conservative management. - Previous Renal US (12/17/16) --> Echogenic kidneys which can be seen in medical renal disease, bilateral renal cysts, echogenic splenic lesion likely benign and may be related to hemangioma, hypoechoic lesion on the right mid kidney may be related to a complex cyst. (4) HTN (hypertension) Status: Chronic Plan: - Pt is on Metoprolol 25mg po BID - change cardizem CD to procardia XL 60mg daily - observe BP readings (5) Anxiety Status: Chronic Problem Qualifiers (1) HTN (hypertension): Qualified Code: I10 - Essential hypertension Alexander Eddy DO Jan 31, 2017 16:26
[2017-01-31 16:28] VITALS: BP 139/69; PULSE 84; RESP 20; TEMP 98.2; O2SAT 99
[2017-01-31] MEDS: DOCUSATE SODIUM 50 MG/SENNA 8.6 MG TAB PO SCH ×2 (16:28→20:29)
[2017-01-31 20:00] VITALS: BP 134/63; PULSE 91; RESP 16; TEMP 98.3; O2SAT 100
[2017-02-01] VITALS: BP 142/72; PULSE 91; RESP 18; TEMP 98; O2SAT 96
[2017-02-01 04:00] VITALS: BP 132/72; PULSE 93; RESP 18; TEMP 98.3; O2SAT 97
[2017-02-01] MEDS: ACETAMINOPHEN/HYDROcodone 325 MG/5 MG TAB PO PRN ×4 (04:55→17:30)
[2017-02-01] MEDS: INSULIN ASPART SUPPLEMENTAL SCALE SQ SCH ×4 (06:15→23:11)
[2017-02-01 06:59] LABS: MAGNESIUM 2.1 MG/DL (1.5-2.5); POTASSIUM 4.6 MEQ/L (3.5-5.1)
[2017-02-01 07:11] LABS: AUTOMATED NEUTROPHIL # 35.6 TH/MM3 (1.8-7.7); BASOPHIL # 0.1 TH/MM3 (0-0.2); BASOPHIL % 0.2 % (0.0-2.0); EOSINOPHIL % 0.1 % (0.0-4.0); HEMATOCRIT 28.2 % (35.0-46.0); LYMPH % 6.1 % (9.0-44.0); LYMPHOCYTE # 2.4 TH/MM3 (1.0-4.8); MEAN CELL VOLUME 83.5 FL (80.0-100.0); MEAN CORPUSCULAR HEMOGLOBIN 26.4 PG (27.0-34.0); MEAN CORPUSCULAR HGB CONC 31.6 % (32.0-36.0); MONO % 2.8 % (0.0-8.0); NEUT % 90.8 % (16.0-70.0); PLATELET COUNT 462 TH/MM3 (150-450); RED BLOOD COUNT 3.38 MIL/MM3 (4.00-5.30); RED CELL DISTRIBUTION WIDTH 16.5 % (11.6-17.2); WHITE BLOOD COUNT 39.2 TH/MM3 (4.0-11.0)
[2017-02-01 07:14] LABS: HEMO FLAGS AUTO DIFF
[2017-02-01 08:00] VITALS: BP 134/71; PULSE 95; RESP 20; TEMP 98.5; O2SAT 95
[2017-02-01 08:11] LABS: BANDS 2 % (0-6); METAMYELOCYTES 1 % (0-1); MYELOCYTES 1 % (0-0); NEUTROPHIL # MANUAL DIFF 32.1 TH/MM3 (1.8-7.7); POLYS (SEG NEUTROPHILS) 78 % (16-70); WBC DIFF SAMPLE 100
[2017-02-01 08:12] LABS: ACANTHOCYTES OCC (NORMAL)
[2017-02-01 08:13] LABS: PLATELET ESTIMATE SMEAR HIGH (NORMAL); PLATELET MORPHOLOGY NORMAL (NORMAL); SCAN/DIFF FINAL DIFF MANUAL
[2017-02-01] MEDS: INSULIN DETEMIR 100 UNITS/ML VIAL SQ SCH ×2 (08:31→23:10)
[2017-02-01] MEDS: DOCUSATE SODIUM 50 MG/SENNA 8.6 MG TAB PO SCH ×2 (08:31→21:00)
[2017-02-01] MEDS: ONDANSETRON HCL 4 MG/2 ML VIAL IVP PRN ×2 (08:31→23:16)
[2017-02-01] MEDS: METOPROLOL TARTRATE 25 MG TAB PO SCH ×2 (08:31→23:11)
[2017-02-01] MEDS: SUCRALFATE 1 GM TAB PO SCH ×3 (08:32→17:19)
[2017-02-01] MEDS: predniSONE 20 MG TAB PO SCH ×2 (08:32→23:11)
[2017-02-01] MEDS: PANTOPRAZOLE SOD 40 MG DELAYED RELEASE TAB PO SCH ×2 (08:32→23:11)
[2017-02-01] MEDS: NIFEdipine 60 MG SUSTAINED RELEASE TAB PO SCH (08:32)
[2017-02-01] MEDS: LIPASE/PROTEASE/AMYLASE (12,000/38,000/60,000) CAP PO SCH ×3 (08:32→17:19)
[2017-02-01] MEDS: SODIUM CHLORIDE 0.9% FLUSH 5 ML FLUSH FLUSH SCH ×2 (08:38→23:13)
--- NOTE | 2017-02-01 11:19 | HHI.PR ---
Subjective Remarks doing ok. had bm. abdomen feels better. Objective Vitals heart reg lung cta abd s/nd/gj tube ext no edema Vital Signs Date Time Temp Pulse Resp B/P Pulse Ox O2 Delivery O2 Flow Rate FiO2 02/01/17 08:00 98.5 95 20 134/71 95 02/01/17 06:05 18 02/01/17 04:00 98.3 93 18 132/72 97 02/01/17 00:00 98.0 91 18 142/72 96 01/31/17 20:30 100 Room Air 01/31/17 20:00 98.3 91 16 134/63 100 01/31/17 16:28 98.2 84 20 139/69 99 01/31/17 12:21 98.2 80 20 135/66 99 01/31/17 01/31/17 02/01/17 15:00 23:00 07:00 Intake Total 460 ml 180 ml 1320 ml Output Total 1200 ml 1100 ml Balance -740 ml 180 ml 220 ml Intake Oral 460 ml 180 ml 120 ml IV Total 600 ml Tube Feeding 600 ml Output Urine Total 1200 ml 1100 ml # Voids 2 # Bowel Movements 0 0 2 Result Diagram: 02/01/17 0523 02/01/17 0523 Imaging Last Impressions Tube Change 01/22/17 0000 Signed Impressions: Service Date/Time: Sunday, January 22, 2017 15:41 - CONCLUSION: Uncomplicated gastrojejunostomy tube exchange as above. Ryan Stuart MD Gastrostomy Tube Placement 01/18/17 0000 Signed Impressions: Service Date/Time: Wednesday, January 18, 2017 11:08 - CONCLUSION: Uncomplicated gastrojejunostomy tube placement as above. Ryan Stuart MD Chest X-Ray 01/14/17 0000 Signed Impressions: Service Date/Time: January 15:55 - CONCLUSION: Normal examination. Sanford Avina MD Abdomen/Pelvis CT 01/11/17 0000 Signed Impressions: Service Date/Time: Wednesday, January 11, 2017 10:25 - CONCLUSION: 1. Very mild induration around the pancreas, consistent with history of pancreatitis. 2. Biliary stent in place as described above. 3. I do not see an etiology for the patient's abdominal pain. Jamie Tabor MD FACR A/P Problem List: (1) Chronic recurrent pancreatitis Status: Acute Plan: - comgmt with GI - Pt has had numerous previous admissions d/t recurrent pancreatis. - Pt has followed closely for many years with [facility] and has also been seen at the [facility]. - Pt was last admitted d/t recurrent pancreatitis 11/13/15-01/02/16 and then again for same symptoms 12/14/16-12/26/16. - Pt typically has a reactive leukocytosis with her pancreatitis, and this has been seen on previous admissions. - She previously underwent ERCP with stent placement 11/22/15. Pt had G/J tube placed on 11/28/15, but this was removed. - Most recently she underwent repeat ERCP (12/11/15) with biliary stent exchange with placement of a 10 [place], 9 cm long plastic stent. - She was actually given steroids at that time with symptomatic improvement. - Pt was again admitted with recurrent pancreatitis and Acute/CKD - She has again had leukocytosis and fever with her pancreatitis - Blood cultures 01/11 and 01/13 ngtd - GJ tube placed on 01/18. That tube malfunctioned and new one placed on 01/22. GJ tube again became clogged on 01/26 and pt was evaluated by IR and GJ tube was exchanged again on 01/27 - TF were resumed with Jevity 1.5 following exchange and free water flushes were increased. Dietary recommending goal rate of 45mL/hr and free water flushes in the J tube of 60mL every 6 hours. - Pt developed recurrent pancreatic pain and rising WBC count and lipase again - When the pt is stable for discharge she will continued on TF at 75ml/hr night tube feeding. - During a previous admission in 2015 she had the same issues with fever and elevated WBC count in the setting of her pancreatitis. She underwent a very extensive workup for infectious etiology which was negative. She had a workup for autoimmune processes which was unrevealing. Pt was started on IV Solu-Medrol for noninfectious inflammatory process and pt had clinical improvement. - PO prednisone - lipase has normalized - Tolerating clear liquids, we will not advance past clear liquids at this time. - given Procrit (01/29/17) - Narcotics PRN - Creon, Protonix - DVT prophylaxis plan for d/c in next 1-2 days if stable. (2) Steroid-induced hyperglycemia Status: Acute Plan: -taper steroids off and insulin (3) Acute on chronic kidney disease, stage 3 Status: Chronic Plan: - comgmt with Nephrology -renal function slowly improving on ivf - Appreciate Nephrology consultation for further evaluation. Feel that this is likely related to dehydration but pt has been on IVF since 01/26 with minimal improvement in her Creatinine. Nephrology recommending continued conservative management. - Previous Renal US (12/17/16) --> Echogenic kidneys which can be seen in medical renal disease, bilateral renal cysts, echogenic splenic lesion likely benign and may be related to hemangioma, hypoechoic lesion on the right mid kidney may be related to a complex cyst. (4) HTN (hypertension) Status: Chronic Plan: - Pt is on Metoprolol 25mg po BID - change cardizem CD to procardia XL 60mg daily - observe BP readings (5) Anxiety Status: Chronic Problem Qualifiers (1) HTN (hypertension): Qualified Code: I10 - Essential hypertension Bryan Quezada MD Feb 01, 2017 11:19
[2017-02-01 12:00] VITALS: BP 136/73; PULSE 86; RESP 20; TEMP 98.7; O2SAT 99
[2017-02-01 16:00] VITALS: BP 149/70; PULSE 90; RESP 20; TEMP 98.3; O2SAT 98
--- NOTE | 2017-02-01 18:03 | HHI.NPPN ---
Subjective History of Present Illness 81 year old with CKD 4 ,Recurrent pancreatitis Additional Remarks Patient is alert, feeling better, and taking more liquids orally. Objective Data Data 01/31/17 02/01/17 19:00 07:00 Intake Total 460 ml 1500 ml Output Total 1200 ml 1100 ml Balance -740 ml 400 ml Intake Oral 460 ml 300 ml IV Total 600 ml Tube Feeding 600 ml Output Urine Total 1200 ml 1100 ml # Voids 2 # Bowel Movements 0 2 Vital Signs Date Time Temp Pulse Resp B/P Pulse Ox O2 Delivery O2 Flow Rate FiO2 02/01/17 16:00 98.3 90 20 149/70 98 02/01/17 12:00 98.7 86 20 136/73 99 02/01/17 08:00 98.5 95 20 134/71 95 02/01/17 07:15 Room Air 02/01/17 06:05 18 02/01/17 04:00 98.3 93 18 132/72 97 02/01/17 00:00 98.0 91 18 142/72 96 01/31/17 20:30 100 Room Air 01/31/17 20:00 98.3 91 16 134/63 100 -: 02/01/17 0523 02/01/17 0523 Physical Exam General Appearance: No Acute Distress, Comfortable Neck Neck Exam: Neck Supple Pulmonary Resp Exam: Breath Sounds Equal, No Distress, Decreased Bases Cardiology CV Exam: Regular Gastrointestinal/Abdomen GI Exam: Soft, Bowel Sounds Present, Distended Integumentary Skin Exam: Clear Extremeties Extremities Exam: No Edema Neurologic Neuro Exam: Alert, Awake Assessment/Plan Problem List: (1) Acute renal insufficiency Plan: Patient has CKD baseline Creatinine continue to improve. Has an element of WAY[place], possibly pre renal. continue with conservative approach given Procrit Hb low had G- J tube changed continue tube feeds, also started oral liquids. Creatinine improving, has an element of pre renal also. (2) CKD (chronic kidney disease) stage 4, GFR 15-29 ml/min Plan: Will monitor kidney situation (3) Chronic recurrent pancreatitis Plan: getting TF (4) Leukocytosis Plan: She has neg cultures (5) Anemia Plan: Continue to monitor Problem Qualifiers (1) Anemia: Qualified Code: D64.89 - Anemia due to other cause, not classified Aaliyah Kennedy MD Feb 01, 2017 18:03
[2017-02-01 20:59] VITALS: BP 148/77; PULSE 97; RESP 18; TEMP 98.9; O2SAT 100
[2017-02-02 00:31] VITALS: BP 137/74; PULSE 84; RESP 20; TEMP 98.1; O2SAT 97
[2017-02-02 04:00] VITALS: BP 120/66; PULSE 79; RESP 18; TEMP 98.4; O2SAT 98
[2017-02-02] MEDS: ACETAMINOPHEN/HYDROcodone 325 MG/5 MG TAB PO PRN ×4 (05:27→20:57)
[2017-02-02] MEDS: INSULIN ASPART SUPPLEMENTAL SCALE SQ SCH ×4 (05:41→20:56)
[2017-02-02 08:21] VITALS: BP 152/77; PULSE 93; RESP 16; TEMP 97.2; O2SAT 99
[2017-02-02] MEDS: SODIUM CHLORIDE 0.9% FLUSH 5 ML FLUSH FLUSH SCH ×2 (09:00→20:42)
[2017-02-02] MEDS: SUCRALFATE 1 GM TAB PO SCH ×3 (09:06→16:35)
[2017-02-02] MEDS: DOCUSATE SODIUM 50 MG/SENNA 8.6 MG TAB PO SCH ×2 (09:06→20:42)
[2017-02-02] MEDS: PANTOPRAZOLE SOD 40 MG DELAYED RELEASE TAB PO SCH ×2 (09:06→20:42)
[2017-02-02] MEDS: LIPASE/PROTEASE/AMYLASE (12,000/38,000/60,000) CAP PO SCH ×3 (09:06→17:43)
[2017-02-02] MEDS: predniSONE 20 MG TAB PO SCH (09:06)
[2017-02-02] MEDS: NIFEdipine 60 MG SUSTAINED RELEASE TAB PO SCH (09:06)
[2017-02-02] MEDS: METOPROLOL TARTRATE 25 MG TAB PO SCH ×2 (09:06→20:42)
[2017-02-02] MEDS: INSULIN DETEMIR 100 UNITS/ML VIAL SQ SCH (09:07)
[2017-02-02] MEDS: SODIUM CHLOR 0.9% 1000 ML INJ 1,000 ML IV SCH ×2 (09:08→12:11)
[2017-02-02] MEDS: ONDANSETRON HCL 4 MG/2 ML VIAL IVP PRN ×2 (09:40→16:35)
--- NOTE | 2017-02-02 10:07 | HHI.PR ---
Subjective Remarks asking for her pain meds. admits to tolerating her liquids. Objective Vitals heart reg lung cta abd gj tube ext no edema Vital Signs Date Time Temp Pulse Resp B/P Pulse Ox O2 Delivery O2 Flow Rate FiO2 02/02/17 09:10 Room Air 02/02/17 08:21 97.2 93 16 152/77 99 02/02/17 04:00 98.4 79 18 120/66 98 02/02/17 00:31 98.1 84 20 137/74 97 02/01/17 20:59 98.9 97 18 148/77 100 02/01/17 20:00 Room Air 02/01/17 16:00 98.3 90 20 149/70 98 02/01/17 12:00 98.7 86 20 136/73 99 02/01/17 02/01/17 02/02/17 15:00 23:00 07:00 Intake Total 2389 ml Balance 2389 ml IV Total 1117 ml Tube Feeding 1272 ml # Voids 4 0 # Bowel Movements 0 0 Result Diagram: 02/01/17 0523 02/01/17 0523 Imaging Last Impressions Tube Change 01/22/17 0000 Signed Impressions: Service Date/Time: Sunday, January 22, 2017 15:41 - CONCLUSION: Uncomplicated gastrojejunostomy tube exchange as above. Ryan Stuart MD Gastrostomy Tube Placement 01/18/17 0000 Signed Impressions: Service Date/Time: Wednesday, January 18, 2017 11:08 - CONCLUSION: Uncomplicated gastrojejunostomy tube placement as above. Ryan Stuart MD Chest X-Ray 01/14/17 0000 Signed Impressions: Service Date/Time: January 15:55 - CONCLUSION: Normal examination. Sanford Avina MD Abdomen/Pelvis CT 01/11/17 0000 Signed Impressions: Service Date/Time: Wednesday, January 11, 2017 10:25 - CONCLUSION: 1. Very mild induration around the pancreas, consistent with history of pancreatitis. 2. Biliary stent in place as described above. 3. I do not see an etiology for the patient's abdominal pain. Jamie Tabor MD FACR A/P Problem List: (1) Chronic recurrent pancreatitis Status: Acute Plan: - comgmt with GI - Pt has had numerous previous admissions d/t recurrent pancreatis. - Pt has followed closely for many years with [facility] and has also been seen at the [facility]. - Pt was last admitted d/t recurrent pancreatitis 11/13/15-01/02/16 and then again for same symptoms 12/14/16-12/26/16. - Pt typically has a reactive leukocytosis with her pancreatitis, and this has been seen on previous admissions. - She previously underwent ERCP with stent placement 11/22/15. Pt had G/J tube placed on 11/28/15, but this was removed. - Most recently she underwent repeat ERCP (12/11/15) with biliary stent exchange with placement of a 10 yi, 9 cm long plastic stent. - She was actually given steroids at that time with symptomatic improvement. - Pt was again admitted with recurrent pancreatitis and Acute/CKD - She has again had leukocytosis and fever with her pancreatitis - Blood cultures 01/11 and 01/13 ngtd - GJ tube placed on 01/18. That tube malfunctioned and new one placed on 01/22. GJ tube again became clogged on 01/26 and pt was evaluated by IR and GJ tube was exchanged again on 01/27 - TF were resumed with Jevity 1.5 following exchange and free water flushes were increased. Dietary recommending goal rate of 45mL/hr and free water flushes in the J tube of 60mL every 6 hours. - Pt developed recurrent pancreatic pain and rising WBC count and lipase again - When the pt is stable for discharge she will continued on TF at 75ml/hr night tube feeding. - During a previous admission in 2015 she had the same issues with fever and elevated WBC count in the setting of her pancreatitis. She underwent a very extensive workup for infectious etiology which was negative. She had a workup for autoimmune processes which was unrevealing. Pt was started on IV Solu-Medrol for noninfectious inflammatory process and pt had clinical improvement. - PO prednisone - lipase has normalized - Tolerating clear liquids, we will not advance past clear liquids at this time. - given Procrit (01/29/17) - Narcotics PRN - Creon, Protonix - DVT prophylaxis attempt d/c home with [facility] tomorrow. nighttime j tube feeding at home wean off steroid/insulin recheck cr and stop ivf if better. (2) Steroid-induced hyperglycemia Status: Acute Plan: -taper steroids off and insulin (3) Acute on chronic kidney disease, stage 3 Status: Chronic Plan: - comgmt with Nephrology -renal function slowly improving on ivf - Appreciate Nephrology consultation for further evaluation. Feel that this is likely related to dehydration but pt has been on IVF since 01/26 with minimal improvement in her Creatinine. Nephrology recommending continued conservative management. - Previous Renal US (12/17/16) --> Echogenic kidneys which can be seen in medical renal disease, bilateral renal cysts, echogenic splenic lesion likely benign and may be related to hemangioma, hypoechoic lesion on the right mid kidney may be related to a complex cyst. (4) HTN (hypertension) Status: Chronic Plan: - Pt is on Metoprolol 25mg po BID - change cardizem CD to procardia XL 60mg daily - observe BP readings (5) Anxiety Status: Chronic Problem Qualifiers (1) HTN (hypertension): Qualified Code: I10 - Essential hypertension Bryan Quezada MD Feb 02, 2017 10:07
[2017-02-02 11:55] VITALS: BP 143/70; PULSE 78; RESP 16; TEMP 97.9; O2SAT 99
[2017-02-02 16:00] VITALS: BP 129/66; PULSE 82; RESP 17; TEMP 98.4; O2SAT 98
--- NOTE | 2017-02-02 19:40 | HHI.NPPN ---
Subjective History of Present Illness 81 year old with CKD 4 ,Recurrent pancreatitis Additional Remarks Patient is alert, still has abd. discomfort, tolerating liquids. Objective Data Data 02/01/17 02/02/17 18:59 06:59 Intake Total 2389 ml Balance 2389 ml IV Total 1117 ml Tube Feeding 1272 ml # Voids 3 1 # Bowel Movements 0 Vital Signs Date Time Temp Pulse Resp B/P Pulse Ox O2 Delivery O2 Flow Rate FiO2 02/02/17 16:00 98.4 82 17 129/66 98 02/02/17 11:55 97.9 78 16 143/70 99 02/02/17 09:10 Room Air 02/02/17 08:21 97.2 93 16 152/77 99 02/02/17 04:00 98.4 79 18 120/66 98 02/02/17 00:31 98.1 84 20 137/74 97 02/01/17 20:59 98.9 97 18 148/77 100 02/01/17 20:00 Room Air -: 02/01/17 0523 02/01/17 0523 Physical Exam General Appearance: No Acute Distress, Comfortable Neck Neck Exam: Neck Supple Pulmonary Resp Exam: Breath Sounds Equal, No Distress, Decreased Bases Cardiology CV Exam: Regular Gastrointestinal/Abdomen GI Exam: Soft, Bowel Sounds Present, Distended Integumentary Skin Exam: Clear Extremeties Extremities Exam: No Edema Neurologic Neuro Exam: Alert, Awake Assessment/Plan Problem List: (1) Acute renal insufficiency Plan: Patient has CKD baseline Creatinine continue to improve. Has an element of WAYNE, possibly pre renal. continue with conservative approach given Procrit Hb low had G- J tube changed continue tube feeds, also started oral liquids. No new BMP today. Increase WBC possibly related to steroid. (2) CKD (chronic kidney disease) stage 4, GFR 15-29 ml/min Plan: Will monitor kidney situation (3) Chronic recurrent pancreatitis Plan: getting TF (4) Leukocytosis Plan: She has neg cultures (5) Anemia Plan: Continue to monitor Problem Qualifiers (1) Anemia: Qualified Code: D64.89 - Anemia due to other cause, not classified Aaliyah Kennedy MD Feb 02, 2017 19:40
[2017-02-02 20:00] VITALS: BP 132/76; PULSE 115; RESP 18; TEMP 99.4; O2SAT 100
[2017-02-02] MEDS: predniSONE 10 MG TAB PO SCH (20:42)
[2017-02-03] VITALS: BP 146/67; PULSE 80; RESP 18; TEMP 98.3; O2SAT 98
[2017-02-03 04:00] VITALS: BP 138/46; PULSE 84; RESP 18; TEMP 98.6; O2SAT 96
[2017-02-03] MEDS: INSULIN ASPART SUPPLEMENTAL SCALE SQ SCH ×4 (07:00→20:54)
[2017-02-03 07:16] LABS: POTASSIUM 4.9 MEQ/L (3.5-5.1)
[2017-02-03 08:00] VITALS: BP 143/86; PULSE 83; RESP 16; TEMP 98.8; O2SAT 100
[2017-02-03] MEDS: NIFEdipine 60 MG SUSTAINED RELEASE TAB PO SCH (08:33)
[2017-02-03] MEDS: ONDANSETRON HCL 4 MG/2 ML VIAL IVP PRN ×2 (08:33→17:43)
[2017-02-03] MEDS: DOCUSATE SODIUM 50 MG/SENNA 8.6 MG TAB PO SCH ×2 (08:33→20:54)
[2017-02-03] MEDS: METOPROLOL TARTRATE 25 MG TAB PO SCH ×2 (08:33→20:54)
[2017-02-03] MEDS: PANTOPRAZOLE SOD 40 MG DELAYED RELEASE TAB PO SCH ×2 (08:33→20:54)
[2017-02-03] MEDS: predniSONE 10 MG TAB PO SCH ×2 (08:33→20:54)
[2017-02-03] MEDS: SUCRALFATE 1 GM TAB PO SCH ×3 (08:33→17:43)
[2017-02-03] MEDS: ACETAMINOPHEN/HYDROcodone 325 MG/5 MG TAB PO PRN ×4 (08:34→22:51)
[2017-02-03] MEDS: SODIUM CHLORIDE 0.9% FLUSH 5 ML FLUSH FLUSH SCH ×2 (08:34→20:55)
[2017-02-03] MEDS: SODIUM CHLOR 0.9% 1000 ML INJ 1,000 ML IV SCH ×2 (08:34→20:54)
[2017-02-03] MEDS: LIPASE/PROTEASE/AMYLASE (12,000/38,000/60,000) CAP PO SCH ×3 (08:34→17:43)
--- NOTE | 2017-02-03 11:20 | HHI.PR ---
Subjective Remarks c/o pancreas pain/ Objective Vitals heart reg lung cta abd right abd tenderness. bs/nd gj tube nontender. ext no edema Vital Signs Date Time Temp Pulse Resp B/P Pulse Ox O2 Delivery O2 Flow Rate FiO2 02/03/17 08:35 Room Air 02/03/17 08:00 98.8 83 16 143/86 100 02/03/17 04:00 98.6 84 18 138/46 96 02/03/17 00:00 98.3 80 18 146/67 98 02/02/17 20:15 100 Room Air 02/02/17 20:00 99.4 115 18 132/76 100 02/02/17 16:00 98.4 82 17 129/66 98 02/02/17 11:55 97.9 78 16 143/70 99 02/02/17 02/02/17 02/03/17 15:00 23:00 07:00 Intake Total 1407 ml 190 ml 100 ml Balance 1407 ml 190 ml 100 ml Intake Oral 360 ml 190 ml 100 ml IV Total 424 ml Tube Feeding 423 ml Tube Irrigant 200 ml # Voids 3 1 1 # Bowel Movements 1 1 0 Result Diagram: 02/01/17 0523 02/03/17 0534 Imaging Last Impressions Tube Change 01/22/17 0000 Signed Impressions: Service Date/Time: Sunday, January 22, 2017 15:41 - CONCLUSION: Uncomplicated gastrojejunostomy tube exchange as above. Ryan Stuart MD Gastrostomy Tube Placement 01/18/17 0000 Signed Impressions: Service Date/Time: Wednesday, January 18, 2017 11:08 - CONCLUSION: Uncomplicated gastrojejunostomy tube placement as above. Ryan Stuart MD Chest X-Ray 01/14/17 0000 Signed Impressions: Service Date/Time: January 15:55 - CONCLUSION: Normal examination. Sanford Avina MD Abdomen/Pelvis CT 01/11/17 0000 Signed Impressions: Service Date/Time: Wednesday, January 11, 2017 10:25 - CONCLUSION: 1. Very mild induration around the pancreas, consistent with history of pancreatitis. 2. Biliary stent in place as described above. 3. I do not see an etiology for the patient's abdominal pain. Jamie Tabor MD FACR A/P Problem List: (1) Chronic recurrent pancreatitis Status: Acute Plan: - comgmt with GI - Pt has had numerous previous admissions d/t recurrent pancreatis. - Pt has followed closely for many years with [facility] and has also been seen at the [facility]. - Pt was last admitted d/t recurrent pancreatitis 11/13/15-01/02/16 and then again for same symptoms 12/14/16-12/26/16. - Pt typically has a reactive leukocytosis with her pancreatitis, and this has been seen on previous admissions. - She previously underwent ERCP with stent placement 11/22/15. Pt had G/J tube placed on 11/28/15, but this was removed. - Most recently she underwent repeat ERCP (12/11/15) with biliary stent exchange with placement of a 10 kosovan, 9 cm long plastic stent. - She was actually given steroids at that time with symptomatic improvement. - Pt was again admitted with recurrent pancreatitis and Acute/CKD - She has again had leukocytosis and fever with her pancreatitis - Blood cultures 01/11 and 01/13 ngtd - GJ tube placed on 01/18. That tube malfunctioned and new one placed on 01/22. GJ tube again became clogged on 01/26 and pt was evaluated by IR and GJ tube was exchanged again on 01/27 - TF were resumed with Jevity 1.5 following exchange and free water flushes were increased. Dietary recommending goal rate of 45mL/hr and free water flushes in the J tube of 60mL every 6 hours. - Pt developed recurrent pancreatic pain and rising WBC count and lipase again - When the pt is stable for discharge she will continued on TF at 75ml/hr night tube feeding. - During a previous admission in 2015 she had the same issues with fever and elevated WBC count in the setting of her pancreatitis. She underwent a very extensive workup for infectious etiology which was negative. She had a workup for autoimmune processes which was unrevealing. Pt was started on IV Solu-Medrol for noninfectious inflammatory process and pt had clinical improvement. - PO prednisone - lipase has normalized - given Procrit (01/29/17) - Narcotics PRN - Creon, Protonix - DVT prophylaxis -wean off steroid/insulin - pt c/o abdomen pain. stop po liquids. kub. cont tf. (2) Steroid-induced hyperglycemia Status: Acute Plan: -taper steroids off and insulin (3) Acute on chronic kidney disease, stage 3 Status: Chronic Plan: - comgmt with Nephrology -renal function slowly improving on ivf - Appreciate Nephrology consultation for further evaluation. Feel that this is likely related to dehydration but pt has been on IVF since 01/26 with minimal improvement in her Creatinine. Nephrology recommending continued conservative management. - Previous Renal US (12/17/16) --> Echogenic kidneys which can be seen in medical renal disease, bilateral renal cysts, echogenic splenic lesion likely benign and may be related to hemangioma, hypoechoic lesion on the right mid kidney may be related to a complex cyst. (4) HTN (hypertension) Status: Chronic Plan: - Pt is on Metoprolol 25mg po BID - change cardizem CD to procardia XL 60mg daily - observe BP readings (5) Anxiety Status: Chronic Problem Qualifiers (1) HTN (hypertension): Qualified Code: I10 - Essential hypertension Bryan Quezada MD Feb 03, 2017 11:20
[2017-02-03 12:00] VITALS: BP 147/73; PULSE 80; RESP 16; TEMP 98.3; O2SAT 98
--- NOTE | 2017-02-03 12:10 | RADRPT ---
EXAM DATE/TIME: 02/03/2017 11:17 [place] COMPARISON: CHEST SINGLE AP, January 14, 2017, 15:55. INDICATIONS : Abdominal pain. MEDICAL HISTORY : Hypertension. Hernia, hiatal. Pancreatitis. Renal disease. SURGICAL HISTORY : Cholecystectomy. Sphincterotomy. ENCOUNTER: Subsequent ACUITY: 3 days PAIN SCORE: 8/10 LOCATION: Abdomen, all quadrants. FINDINGS: The examination demonstrates a biliary stent in place. There is a gastrojejunal tube in place. The niru wel gas pattern is within normal limits. There no findings to indicate obstruction. The visualized niru ny structures are grossly intact. CONCLUSION: 1. Post operative changes. 2. No findings to indicate bowel obstruction identified. Remigio Tabor MD on February 03, 2017 at 12:06 Board Certified Radiologist. This report was verified electronically.
[2017-02-03] MEDS ORDERED: LACTULOSE SYRUP 20 GM/30 ML CUP PO ONE (15:45)
[2017-02-03 16:00] VITALS: BP 134/86; PULSE 76; RESP 18; TEMP 98; O2SAT 97
[2017-02-03 20:00] VITALS: BP 146/77; PULSE 73; RESP 18; TEMP 98.6; O2SAT 99
--- NOTE | 2017-02-03 22:19 | HHI.NPPN ---
Subjective History of Present Illness 81 year old with CKD 4 ,Recurrent pancreatitis Additional Remarks Patient is alert, still has abd. discomfort, clinically same, on GT feeding and taking liquids orally. Objective Data Data 02/02/17 02/03/17 19:00 07:00 Intake Total 1407 ml 290 ml Balance 1407 ml 290 ml Intake Oral 360 ml 290 ml IV Total 424 ml Tube Feeding 423 ml Tube Irrigant 200 ml # Voids 3 2 # Bowel Movements 1 1 Vital Signs Date Time Temp Pulse Resp B/P Pulse Ox O2 Delivery O2 Flow Rate FiO2 02/03/17 20:00 98.6 73 18 146/77 99 02/03/17 16:00 98.0 76 18 134/86 97 02/03/17 12:00 98.3 80 16 147/73 98 02/03/17 08:35 Room Air 02/03/17 08:00 98.8 83 16 143/86 100 02/03/17 04:00 98.6 84 18 138/46 96 02/03/17 00:00 98.3 80 18 146/67 98 -: 02/01/17 0523 02/03/17 0534 Physical Exam General Appearance: No Acute Distress, Comfortable Neck Neck Exam: Neck Supple Pulmonary Resp Exam: Breath Sounds Equal, No Distress, Decreased Bases Cardiology CV Exam: Regular Gastrointestinal/Abdomen GI Exam: Soft, Bowel Sounds Present, Distended Integumentary Skin Exam: Clear Extremeties Extremities Exam: No Edema Neurologic Neuro Exam: Alert, Awake Assessment/Plan Problem List: (1) Acute renal insufficiency Plan: Patient has CKD baseline Creatinine continue to improve. Has an element of WAYNE, possibly pre renal. continue with conservative approach given Procrit Hb low had G- J tube changed continue tube feeds, also started oral liquids. Creatinine is 1.8, possibly at her baseline. (2) CKD (chronic kidney disease) stage 4, GFR 15-29 ml/min Plan: Will monitor kidney situation (3) Chronic recurrent pancreatitis Plan: getting TF (4) Leukocytosis Plan: She has neg cultures (5) Anemia Plan: Continue to monitor Problem Qualifiers (1) Anemia: Qualified Code: D64.89 - Anemia due to other cause, not classified Aaliyah Kennedy MD Feb 03, 2017 22:19
[2017-02-04 00:11] VITALS: BP 144/70; PULSE 73; RESP 16; TEMP 98.7; O2SAT 98
[2017-02-04] MEDS: ACETAMINOPHEN/HYDROcodone 325 MG/5 MG TAB PO PRN ×6 (03:59→23:46)
[2017-02-04 04:31] VITALS: BP 132/70; PULSE 66; RESP 16; TEMP 97.8; O2SAT 99
[2017-02-04] MEDS: INSULIN ASPART SUPPLEMENTAL SCALE SQ SCH ×4 (06:34→20:46)
[2017-02-04] MEDS: LIPASE/PROTEASE/AMYLASE (12,000/38,000/60,000) CAP PO SCH ×3 (07:59→18:04)
[2017-02-04] MEDS: ONDANSETRON HCL 4 MG/2 ML VIAL IVP PRN (07:59)
[2017-02-04] MEDS: NIFEdipine 60 MG SUSTAINED RELEASE TAB PO SCH (07:59)
[2017-02-04 08:00] VITALS: BP 158/75; PULSE 73; RESP 16; TEMP 98; O2SAT 100
[2017-02-04] MEDS: LACTULOSE SYRUP 20 GM/30 ML CUP PO SCH (08:00)
[2017-02-04] MEDS: SUCRALFATE 1 GM TAB PO SCH ×3 (08:00→16:09)
[2017-02-04] MEDS: PANTOPRAZOLE SOD 40 MG DELAYED RELEASE TAB PO SCH ×2 (08:00→20:45)
[2017-02-04] MEDS: METOPROLOL TARTRATE 25 MG TAB PO SCH ×2 (08:00→20:45)
[2017-02-04] MEDS: SODIUM CHLORIDE 0.9% FLUSH 5 ML FLUSH FLUSH SCH ×2 (08:00→20:45)
[2017-02-04] MEDS: predniSONE 10 MG TAB PO SCH (08:00)
[2017-02-04] MEDS: DOCUSATE SODIUM 50 MG/SENNA 8.6 MG TAB PO SCH ×2 (08:01→20:45)
--- NOTE | 2017-02-04 11:03 | HHI.PR ---
Subjective Remarks Pt reports less abd pain today but still nauseated. She had a BM last night and had some improvement in her pain after that. Objective Vitals Vital Signs Date Time Temp Pulse Resp B/P Pulse Ox O2 Delivery O2 Flow Rate FiO2 02/04/17 09:41 Room Air 02/04/17 08:00 98.0 73 16 158/75 100 02/04/17 05:48 16 02/04/17 04:31 97.8 66 16 132/70 99 02/04/17 00:11 98.7 73 16 144/70 98 02/03/17 20:45 95 Room Air 02/03/17 20:00 98.6 73 18 146/77 99 02/03/17 16:00 98.0 76 18 134/86 97 02/03/17 12:00 98.3 80 16 147/73 98 02/03/17 02/03/17 02/04/17 15:00 23:00 07:00 Intake Total 2277 ml 200 ml 1360 ml Output Total 600 ml Balance 1677 ml 200 ml 1360 ml Intake Oral 240 ml 200 ml 480 ml IV Total 1126 ml Tube Feeding 511 ml 880 ml Tube Irrigant 400 ml Output Urine Total 600 ml # Voids 2 2 # Bowel Movements 1 0 0 Result Diagram: 02/01/17 0523 02/03/17 0534 Other Results Laboratory Tests Test 02/03/17 05:34 Sodium Level 139 MEQ/L Potassium Level 4.9 MEQ/L Chloride Level 101 MEQ/L Carbon Dioxide Level 29.0 MEQ/L Anion Gap 9 MEQ/L Blood Urea Nitrogen 47 MG/DL Creatinine 1.80 MG/DL Estimat Glomerular Filtration 33 ML/MIN Rate Random Glucose 189 MG/DL Calcium Level 8.2 MG/DL Imaging Last Impressions Abdomen X-Ray 02/03/17 0000 Signed Impressions: Service Date/Time: Friday, February 03, 2017 11:17 - CONCLUSION: 1. Post operative changes. 2. No findings to indicate bowel obstruction identified. Remigio Tabor MD Tube Change 01/27/17 0000 Signed Impressions: Service Date/Time: Friday, January 27, 2017 12:14 - CONCLUSION: Uncomplicated gastrojejunostomy tube exchange as above. Stephan Alegria Jr., MD Gastrostomy Tube Placement 01/18/17 0000 Signed Impressions: Service Date/Time: Wednesday, January 18, 2017 11:08 - CONCLUSION: Uncomplicated gastrojejunostomy tube placement as above. Ryan Stuart MD Chest X-Ray 01/14/17 0000 Signed Impressions: Service Date/Time: January 15:55 - CONCLUSION: Normal examination. Sanford Avina MD Abdomen/Pelvis CT 01/11/17 0000 Signed Impressions: Service Date/Time: Wednesday, January 11, 2017 10:25 - CONCLUSION: 1. Very mild induration around the pancreas, consistent with history of pancreatitis. 2. Biliary stent in place as described above. 3. I do not see an etiology for the patient's abdominal pain. Jamie Tabor MD FACR Objective Remarks General: NAD, AAOx3 Chest: CTA Cardiac: Regular Abd: +BS, soft nondistended, mild tenderness around the GJ tube insertion site otherwise no tenderness Ext: No edema A/P Problem List: (1) Chronic recurrent pancreatitis Status: Acute Plan: - comgmt with GI - Pt has had numerous previous admissions d/t recurrent pancreatis. - Pt has followed closely for many years with [facility] and has also been seen at the [facility]. - Pt was last admitted d/t recurrent pancreatitis 11/13/15-01/02/16 and then again for same symptoms 12/14/16-12/26/16. - Pt typically has a reactive leukocytosis with her pancreatitis, and this has been seen on previous admissions. - She previously underwent ERCP with stent placement 11/22/15. Pt had G/J tube placed on 11/28/15, but this was removed. - Most recently she underwent repeat ERCP (12/11/15) with biliary stent exchange with placement of a 10 divehi, 9 cm long plastic stent. - She was actually given steroids at that time with symptomatic improvement. - Pt was again admitted with recurrent pancreatitis and Acute/CKD - She has again had leukocytosis and fever with her pancreatitis - Blood cultures 01/11 and 01/13 ngtd - GJ tube placed on 01/18. That tube malfunctioned and new one placed on 01/22. GJ tube again became clogged on 01/26 and pt was evaluated by IR and GJ tube was exchanged again on 01/27 - TF were resumed with Jevity 1.5 following exchange and free water flushes were increased. Dietary recommending goal rate of 45mL/hr and free water flushes in the J tube of 60mL every 6 hours. - Pt developed recurrent pancreatic pain and rising WBC count and lipase again - When the pt is stable for discharge she will continued on TF at 75ml/hr night tube feeding. - During a previous admission in 2015 she had the same issues with fever and elevated WBC count in the setting of her pancreatitis. She underwent a very extensive workup for infectious etiology which was negative. She had a workup for autoimmune processes which was unrevealing. Pt was started on IV Solu-Medrol for noninfectious inflammatory process and pt had clinical improvement. - Pt was given IV Solu-Medrol then weaned to PO prednisone and we will wean off. - Lipase has normalized - given Procrit (01/29/17) - Pt had increased abd pain on 02/03 and we placed her back at NPO and KUB revealed some constipation/stool especially on the right side of the colon. Pt was given Lactulose and had a BM last night with improvement in her abd pain. - Order Clear liquids and anticipate discharge tomorrow. - Narcotics PRN - Creon, Protonix - DVT prophylaxis (2) Steroid-induced hyperglycemia Status: Acute Plan: - Taper steroids off and insulin (3) Acute on chronic kidney disease, stage 3 Status: Chronic Plan: - comgmt with Nephrology -renal function slowly improving on ivf - Appreciate Nephrology consultation for further evaluation. Feel that this is likely related to dehydration but pt has been on IVF since 01/26 with minimal improvement in her Creatinine. Nephrology recommending continued conservative management. - Previous Renal US (12/17/16) --> Echogenic kidneys which can be seen in medical renal disease, bilateral renal cysts, echogenic splenic lesion likely benign and may be related to hemangioma, hypoechoic lesion on the right mid kidney may be related to a complex cyst. (4) HTN (hypertension) Status: Chronic Plan: - Pt is on Metoprolol 25mg po BID - Cont. Procardia XL 60mg daily - observe BP readings (5) Anxiety Status: Chronic Assessment and Plan Patient examined. Assessment and plan formulated with Guadalupe Monson PA-C. I agree with the above. acute pancreatitis. ramón/ckd 4 constipation cont laxative. resume liquid. cont tf make effort to d/c [facility] tomorrow. Problem Qualifiers (1) HTN (hypertension): Qualified Code: I10 - Essential hypertension Guadalupe Monson Feb 04, 2017 11:03 Bryan Quezada MD Feb 04, 2017 11:57
[2017-02-04] MEDS ORDERED: NIFE1TAB86 PO (11:11)
[2017-02-04 12:00] VITALS: BP 127/65; PULSE 77; RESP 18; TEMP 98.2; O2SAT 98
[2017-02-04 16:00] VITALS: BP 129/82; PULSE 74; RESP 18; TEMP 97.7; O2SAT 100
[2017-02-04 20:00] VITALS: BP 119/75; PULSE 72; RESP 18; TEMP 98.2; O2SAT 100
--- NOTE | 2017-02-04 22:06 | HHI.NPPN ---
Subjective History of Present Illness 81 year old with CKD 4 ,Recurrent pancreatitis Additional Remarks Patient is alert, clinically same, on GT feeding and taking liquids orally. Objective Data Data 02/03/17 02/04/17 19:00 07:00 Intake Total 2277 ml 1560 ml Output Total 600 ml Balance 1677 ml 1560 ml Intake Oral 240 ml 680 ml IV Total 1126 ml Tube Feeding 511 ml 880 ml Tube Irrigant 400 ml Output Urine Total 600 ml # Voids 4 # Bowel Movements 1 0 Vital Signs Date Time Temp Pulse Resp B/P Pulse Ox O2 Delivery O2 Flow Rate FiO2 02/04/17 16:00 97.7 74 18 129/82 100 02/04/17 12:00 98.2 77 18 127/65 98 02/04/17 09:41 Room Air 02/04/17 08:00 98.0 73 16 158/75 100 02/04/17 05:48 16 02/04/17 04:31 97.8 66 16 132/70 99 02/04/17 00:11 98.7 73 16 144/70 98 -: 02/01/17 0523 02/03/17 0534 Physical Exam General Appearance: No Acute Distress, Comfortable Neck Neck Exam: Neck Supple Pulmonary Resp Exam: Breath Sounds Equal, No Distress, Decreased Bases Cardiology CV Exam: Regular Gastrointestinal/Abdomen GI Exam: Soft, Bowel Sounds Present, Distended Integumentary Skin Exam: Clear Extremeties Extremities Exam: No Edema Neurologic Neuro Exam: Alert, Awake Assessment/Plan Problem List: (1) Acute renal insufficiency Plan: Patient has CKD baseline Creatinine continue to improve. Has an element of WAYNE, possibly pre renal. continue with conservative approach given Procrit Hb low had G- J tube changed continue tube feeds, also started oral liquids. Creatinine is 1.8, possibly at her baseline. Avoid Nephrotoxins, follow BMP. (2) CKD (chronic kidney disease) stage 4, GFR 15-29 ml/min Plan: Will monitor kidney situation (3) Chronic recurrent pancreatitis Plan: getting TF (4) Leukocytosis Plan: She has neg cultures (5) Anemia Plan: Continue to monitor Problem Qualifiers (1) Anemia: Qualified Code: D64.89 - Anemia due to other cause, not classified Aaliyah Kennedy MD Feb 04, 2017 22:06
[2017-02-05] VITALS: BP 157/80; PULSE 70; RESP 16; TEMP 97.8; O2SAT 95
[2017-02-05] MEDS: SODIUM CHLOR 0.9% 1000 ML INJ 1,000 ML IV SCH (00:55)
[2017-02-05 04:00] VITALS: BP 136/73; PULSE 74; RESP 18; TEMP 98.1; O2SAT 98
[2017-02-05] MEDS: ACETAMINOPHEN/HYDROcodone 325 MG/5 MG TAB PO PRN ×3 (04:52→14:53)
[2017-02-05] MEDS: INSULIN ASPART SUPPLEMENTAL SCALE SQ SCH ×2 (06:42→11:48)
[2017-02-05 08:00] VITALS: BP 140/67; PULSE 74; RESP 18; TEMP 98.4; O2SAT 99
[2017-02-05] MEDS: SODIUM CHLORIDE 0.9% FLUSH 5 ML FLUSH FLUSH SCH (09:00)
[2017-02-05] MEDS: DOCUSATE SODIUM 50 MG/SENNA 8.6 MG TAB PO SCH (09:00)
[2017-02-05] MEDS: LACTULOSE SYRUP 20 GM/30 ML CUP PO SCH (09:00)
[2017-02-05] MEDS: METOPROLOL TARTRATE 25 MG TAB PO SCH (09:08)
[2017-02-05] MEDS: LIPASE/PROTEASE/AMYLASE (12,000/38,000/60,000) CAP PO SCH ×2 (09:08→13:01)
[2017-02-05] MEDS: SUCRALFATE 1 GM TAB PO SCH ×2 (09:08→11:48)
[2017-02-05] MEDS: NIFEdipine 60 MG SUSTAINED RELEASE TAB PO SCH (09:08)
[2017-02-05] MEDS: PANTOPRAZOLE SOD 40 MG DELAYED RELEASE TAB PO SCH (09:12)
[2017-02-05] MEDS ORDERED: NORC5TAB PO (10:23)
--- NOTE | 2017-02-05 10:33 | HHI.DCPOC ---
Discharge Care Plan Diagnosis: (1) Chronic recurrent pancreatitis (2) Leukocytosis (3) Acute on chronic kidney disease, stage 3 (4) HTN (hypertension) (5) Steroid-induced hyperglycemia (6) Feeding tube obstruction Goals to Promote Your Health - Pt is on TF, Jevity 1.5 at goal rate of 45mL/hr, for continuous TF from 9pm to 7am every night - Flush J tube with free water, 60mL every 6 hours - Flush G tube with 60mL before and after medication administration Directions to Meet Your Goals Take your medications as prescribed Follow your dietary instruction Follow activity as directed Keep your appointments as scheduled Take your immunizations and boosters as scheduled If your symptoms worsen call your PCP, if no PCP go to Urgent Care Center or Emergency Room Smoking is Dangerous to Your Health. Avoid second hand smoke Call the 24-hour hour crisis hotline for domestic abuse at Guadalupe Monson Feb 05, 2017 10:33
--- NOTE | 2017-02-05 10:42 | HHI.DS ---
Discharge Summary Admission Date Jan 11, 2017 at 09:55 Discharge Date: Feb 05, 2017 Admitting Diagnosis acute kidney injury, uti, leukocytosis (1) Chronic recurrent pancreatitis Diagnosis: Principal (2) Steroid-induced hyperglycemia Diagnosis: Secondary (3) Acute on chronic kidney disease, stage 3 Diagnosis: Secondary (4) HTN (hypertension) Diagnosis: Secondary (5) Anxiety Diagnosis: Secondary Consultants Dr. Arnaldo Melara - Nephrology Dr. Gregg Ortega - GI Brief History Pt has had numerous previous admissions d/t recurrent pancreatis. Pt has followed closely for many years with [facility] and has also been seen at the [facility]. She previously has had a cholecystectomy and sphincterotomy. Pt was last admitted d/t recurrent pancreatitis 11/13/15-01/02/16 and then again for same symptoms 12/14/16 - 12/26/16. During that admission, pt was again treated with IVF and pain medications, but treatment was complicated by narcotic dependency. Pt typically has a reactive leukocytosis with her pancreatitis, and this has been seen on previous admissions. Pt underwent ERCP with stent placement 11/22/15. Pt had G/J tube placed on 11/28/15 , but this was removed. Pt underwent repeat ERCP (12/11/15) Pt underwent biliary stent exchange with placement of a 10 brazilian, 9 cm long plastic stent. During November 2016 hospitalization, pt's case was confounded by a prolonged noninfectious inflammatory process which did NOT respond to antibiotics. Ultimately pt was placed on IV Solu-Medrol with a good clinical response and improvement of her leukocytosis. Pt was discharged to home on a prolonged oral prednisone taper. On this occasion, pt again presented to the ER with c/o abdmianl pain at RUQ, nausea and vomiting, or poor PO intake. Pt's symptoms started 3 days prior to this admission. Pt's Creatinine increased to 3.74 today (01/11/17). Pt's last creatinine was 2.16 (12/23/16). Pt will be admitted for further evaluation and treatment. CBC/BMP: 02/01/17 0523 02/03/17 0534 Significant Findings Laboratory Tests Test 02/03/17 05:34 Blood Urea Nitrogen 47 MG/DL (7-18) Creatinine 1.80 MG/DL (0.50-1.00) Estimat Glomerular Filtration 33 ML/MIN (>89) Rate Random Glucose 189 MG/DL (74-106) Calcium Level 8.2 MG/DL (8.5-10.1) Imaging Last Impressions Abdomen X-Ray 02/03/17 0000 Signed Impressions: Service Date/Time: Friday, February 03, 2017 11:17 - CONCLUSION: 1. Post operative changes. 2. No findings to indicate bowel obstruction identified. Remigio Tabor MD Tube Change 01/27/17 0000 Signed Impressions: Service Date/Time: Friday, January 27, 2017 12:14 - CONCLUSION: Uncomplicated gastrojejunostomy tube exchange as above. Stephan Alegria Jr., MD Gastrostomy Tube Placement 01/18/17 0000 Signed Impressions: Service Date/Time: Wednesday, January 18, 2017 11:08 - CONCLUSION: Uncomplicated gastrojejunostomy tube placement as above. Ryan Stuart MD Chest X-Ray 01/14/17 0000 Signed Impressions: Service Date/Time: January 15:55 - CONCLUSION: Normal examination. Sanford Avina MD Abdomen/Pelvis CT 01/11/17 0000 Signed Impressions: Service Date/Time: Wednesday, January 11, 2017 10:25 - CONCLUSION: 1. Very mild induration around the pancreas, consistent with history of pancreatitis. 2. Biliary stent in place as described above. 3. I do not see an etiology for the patient's abdominal pain. Jamie Tabor MD FACR PE at Discharge General: NAD, AAOx3 Chest: CTA Cardiac: Regular Abd: +BS, soft nondistended, mild tenderness around the GJ tube insertion site otherwise no tenderness Ext: No edema Hospital Course Pt has had numerous previous admissions d/t recurrent pancreatis. Pt has followed closely for many years with [facility] and has also been seen at the [facility]. Pt was last admitted d/t recurrent pancreatitis 11/13/15-01/02/16 and then again for same symptoms 12/14/16-12/26/16. Pt typically has a reactive leukocytosis with her pancreatitis, and this has been seen on previous admissions. She previously underwent ERCP with stent placement 11/22/15. Pt had G/ J tube placed on 11/28/15, but this was removed. Most recently she underwent repeat ERCP (1/27/16) with biliary stent exchange with placement of a 10 brazilian , 9 cm long plastic stent. She was actually given steroids at that time with symptomatic improvement. Pt was again admitted with recurrent pancreatitis and Acute/CKD on 01/11/17. She has again had leukocytosis and fever with her pancreatitis. Blood cultures 01/11 and 01/13 with NGTD. Pt required GJ tube placed on 01/18. That tube malfunctioned and new one placed on 01/22. GJ tube again became clogged on 01/26 and pt was evaluated by IR and GJ tube was exchanged again on 01/27. TF were resumed with Jevity 1.5 following exchange and free water flushes were increased. Dietary recommending goal rate of 45mL/hr and free water flushes in the J tube of 60mL every 6 hours. Pt developed recurrent pancreatic pain and rising WBC count and lipase again. During a previous admission in 2015 she had the same issues with fever and elevated WBC count in the setting of her pancreatitis. She underwent a very extensive workup for infectious etiology which was negative. She had a workup for autoimmune processes which was unrevealing. Pt was started on IV Solu- Medrol for noninfectious inflammatory process and pt had clinical improvement. Pt was started on IV Solu-Medrol then weaned to PO prednisone and this was weaned off on 02/04. Lipase has normalized. Pt had increased abd pain on 02/03 and we placed her back at NPO and KUB revealed some constipation/stool especially on the right side of the colon. Pt was given Lactulose and had a BM last night with improvement in her abd pain. She will be in continuous TF at night with free water fluses every 6 hours. She can continued clear liquids as tolerated. Narcotics PRN. She will continue on Creon and Protonix. Pt had worsening of her renal function at admission and Nephrology was consulted. Her renal function slowly improved on IVF. Nephrology felt that this is likely related to dehydration. Previous Renal US (12/17/16) --> Echogenic kidneys which can be seen in medical renal disease, bilateral renal cysts, echogenic splenic lesion likely benign and may be related to hemangioma, hypoechoic lesion on the right mid kidney may be related to a complex cyst. Pt refused SNF placement so she will be going home with [facility]/PT She will need to followup with her PCP, Dr. Peterson, in 1 week Pt will need to followup with GI in 2 weeks. Pt Condition on Discharge: Stable Discharge Disposition: Disch w/ Home Health Serv Discharge Instructions DIET: Follow Instructions for: Clear Liquid Diet Activities you can perform: Regular-No Restrictions Follow up Referrals: Gastroenterology - 2 Weeks with Margy Bravo MD PCP Follow-up - [address] Peterson New Medications: Kangaroo Zachariah Feeding Tube Pump Set (Kangaroo Zachariah Feeding Tube Pump Set) 1 Mis Mis 1 EA .ROUTE DIRECTED #1 EA Nifedipine ER 24 HR (Procardia XL) 60 Mg Tab 60 MG PO DAILY htn #30 Ref 0 TAB Nutritional Supplements (Jevity 1.5 Alexander) 1 Liq Liq 45 ML JT HS 45ml/hr from 9pm to 7am every night FLush J tube with free water, 60mL every 6 hours Flush G tube with 60mL before and after medication administration pancreatitis Days 30 CONTAINER Continued Medications: Hydrocodone-Acetaminophen ([place]) 5-325 mg Tab 1 TAB PO Q4H PRN PAIN #30 Ref 0 TAB (This prescription has been renewed) Metoprolol Tartrate (Metoprolol Tartrate) 25 Mg Tab 25 MG PO BID #60 Ref 0 TAB Ondansetron Odt (Zofran Odt) 4 Mg Tab 4 MG SL Q8HR May substitute non-ODT form. PRN Nausea/Vomiting #15 TAB Pancrelipase (Creon) 12,000-38,000-60,000 Units Cap 1 CAP PO TIDPC Digestive Aid #90 Ref 0 CAP Pantoprazole (Pantoprazole) 40 Mg Tab 40 MG PO BID Reflux #30 Ref 0 TAB Sucralfate (Sucralfate) 1 Gm Tab 1 GM PO TID on empty stomach Duodenal ulcer #90 Ref 0 TAB Discontinued Medications: Diltiazem ER 24 HR (Cartia Xt) 120 Mg Caper 120 MG PO DAILY #30 Ref 0 CAP Guadalupe Monson Feb 05, 2017 10:42 Bryan Quezada MD Feb 05, 2017 11:29
[2017-02-05 12:00] VITALS: BP 145/74; PULSE 69; RESP 20; TEMP 98.7; O2SAT 97
[2017-02-05] MEDS: ONDANSETRON HCL 4 MG/2 ML VIAL IVP PRN (14:53)
== END 2017-02-05 15:38 | disposition home health service (06) | DRG 439 ==
LOC: NEPC 06:52 → NEDA 09:55 → N04A 15:39
PROVIDERS: ADMIT Hospitalist; ATTEND Hospitalist
PROC: 0DHA3UZ Insertion of Feeding Device into Jejunum, Percutaneous Approach (ICD-10-PCS; principal; 2017-01-18)
PROC: 0D2DXUZ Change Feeding Device in Lower Intestinal Tract, External Approach (ICD-10-PCS; 2017-01-22)
PROC: 0D2DXUZ Change Feeding Device in Lower Intestinal Tract, External Approach (ICD-10-PCS; 2017-01-27)
DX: K85.90 Acute pancreatitis without necrosis or infection, unspecified (principal); N18.4 Chronic kidney disease, stage 4 (severe); E87.0 Hyperosmolality and hypernatremia; N17.9 Acute kidney failure, unspecified; E46 Unspecified protein-calorie malnutrition; N39.0 Urinary tract infection, site not specified; K94.13 Enterostomy malfunction; K86.1 Other chronic pancreatitis; E86.0 Dehydration; I12.9 Hypertensive chronic kidney disease with stage 1 through stage 4 chronic kidney disease, or unspecified chronic kidney disease; F41.9 Anxiety disorder, unspecified; K21.9 Gastro-esophageal reflux disease without esophagitis; M19.90 Unspecified osteoarthritis, unspecified site; K44.9 Diaphragmatic hernia without obstruction or gangrene; E78.5 Hyperlipidemia, unspecified; D63.8 Anemia in other chronic diseases classified elsewhere; R73.9 Hyperglycemia, unspecified; K59.00 Constipation, unspecified; Z87.11 Personal history of peptic ulcer disease; Z86.010 Personal history of colon polyps; Z96.652 Presence of left artificial knee joint; T38.0X5A Adverse effect of glucocorticoids and synthetic analogues, initial encounter; Y83.3 Surgical operation with formation of external stoma as the cause of abnormal reaction of the patient, or of later complication, without mention of misadventure at the time of the procedure
CPT/HCPCS: 49440; 49446; 49452; 71010; 74000; 74176; 76937; 76942; 80048; 80053; 81001; 82550; 82728; 82948; 83540; 83550; 83605; 83690; 83735; 84100; 84155; 84484; 85007; 85025; 85027; 85610; 85730; 87040; 87086; 93005; 96374; 99152; 99153; C1769; C1874; C1887; G8987-GP; G8988-GP; J0696; J1170; J1610; J1815; J2250; J2405; J2765; J2930; J3010; J3480; J7030; J7040; J7512; P9047; Q4081; Q9967

== ENCOUNTER 2017-02-15 15:17 | Emergency (ER) | payer MEDICARE ==
[~2017-02-15] VITALS: Ht 170.2 cm; Wt 73.0 kg
[~2017-02-15 15:17] MED LIST changes: -CART120C PO; +JEVILIQ12 JT; +KANGAROO JOEY P1 MIS; +NIFE1TAB86 PO; -PRED10 PO
[2017-02-15 15:19] VITALS: BP 93/54; PULSE 88; RESP 20; TEMP 97.8; O2SAT 94
--- NOTE | 2017-02-15 16:52 | PD ---
Physical Exam Date Seen by Provider: Feb 15, 2017 Time Seen by Provider: 16:48 Narrative 81 YOWF WITH ABD PAIN, N/V. JUST D/C LAST WEEK FOR PANCREATITIS. NO DM NO F/C VITALS NOTED. AWAITING BED PLACEMENT Data Data Last Documented VS Vital Signs Date Time Temp Pulse Resp B/P Pulse Ox O2 Delivery O2 Flow Rate FiO2 02/15/17 15:19 97.8 88 20 93/54 94 Room Air [facility] Medical Record Reviewed: Yes Supervised Visit with ABHAY: Yes Jordon Sinha Feb 15, 2017 16:52
== END 2017-02-15 17:44 | disposition left against medical advice (07) ==
LOC: NED 15:17
DX: Z53.29 Procedure and treatment not carried out because of patient's decision for other reasons (principal)
CPT/HCPCS: 99282

== ENCOUNTER 2017-02-19 14:55 | Emergency (ER) | payer MEDICARE ==
[~2017-02-19] VITALS: Ht 167.6 cm; Wt 71.5 kg
[2017-02-19 14:57] VITALS: BP 98/53; PULSE 114; RESP 15; TEMP 97.6; O2SAT 98
--- NOTE | 2017-02-19 15:02 | PD ---
Physical Exam Date Seen by Provider: Feb 19, 2017 Time Seen by Provider: 15:00 Narrative 81 year old female presents to the emergency department for evaluation of epigastric abdominal pain for "years" but getting worse. She reports nausea and vomiting. She reports history of pancreatitis. Patient awaiting bed placement. Data Data Last Documented VS Vital Signs Date Time Temp Pulse Resp B/P Pulse Ox O2 Delivery O2 Flow Rate FiO2 02/19/17 14:57 97.6 114 15 98/53 98 MDM Supervised Visit with ABHAY: No Diagnosis Primary Impression: Left against medical advice Disposition: 07 AGAINST MEDICAL ADVICE Elke Rocha Feb 19, 2017 15:02
== END 2017-02-19 17:28 | disposition left against medical advice (07) ==
LOC: NED 14:55
DX: R10.13 Epigastric pain (principal); Z53.21 Procedure and treatment not carried out due to patient leaving prior to being seen by health care provider
CPT/HCPCS: 99283

== ENCOUNTER 2017-02-21 15:37 | Emergency (ER) | payer MEDICARE ==
[~2017-02-21] VITALS: Ht 167.6 cm; Wt 68.5 kg
[2017-02-21 15:39] VITALS: BP 108/57; PULSE 121; RESP 16; TEMP 98.8; O2SAT 98
--- NOTE | 2017-02-21 15:50 | PD ---
Physical Exam Date Seen by Provider: Feb 21, 2017 Time Seen by Provider: 15:49 Narrative 81 year old female presents to the emergency department for evaluation of epigastric abdominal pain for "years" but getting worse. She reports nausea and vomiting. She reports history of pancreatitis. vs noted. awaiting bed placement Data Data Last Documented VS Vital Signs Date Time Temp Pulse Resp B/P Pulse Ox O2 Delivery O2 Flow Rate FiO2 02/21/17 15:39 98.8 121 16 108/57 98 MDM Medical Record Reviewed: Yes Supervised Visit with ABHAY: Yes Jordon Sinha Feb 21, 2017 15:50
[2017-02-21] MEDS ORDERED: SODIUM CHLOR 0.9% 1000 ML INJ 1,000 ML IV SCH (16:11)
[2017-02-21 16:15] VITALS: O2SAT 96
[2017-02-21] MEDS ORDERED: SODIUM CHLORIDE 0.9% FLUSH 10 ML FLUSH IV FLUSH PRN (16:15)
--- NOTE | 2017-02-21 16:15 | PD ---
HPI Chief Complaint: Abdominal Pain Time Seen by Provider: 16:12 Travel History International Travel<30 days: No Contact w/Intl Traveler<30days: No Traveled to known affect area: No History of Present Illness HPI Patient is an 81-year-old female presenting to the emergency department with her daughter for evaluation of upper quadrant abdominal pain. Patient has a history of chronic pancreatitis, she has had several admissions for the same in the past. She states the abdominal pain has been consistent over the last several weeks since she was discharged last. Patient reports nausea and vomiting, her daughter states she's only binge drinking broth and eating small amounts of clear fluids and Jell-O. Patient reports pain is an 8 out of 10 and describes it as aching and sore. Patient has a G tube for supplementation. PFSH Past Medical History Arthritis: Yes Asthma: No Atrial Fibrillation: Yes (HX YES PER PATIENT "NO") Autoimmune Disease: No Anxiety: No Depression: No Heart Rhythm Problems: Yes Cancer: No Cardiovascular Problems: Yes (HTN) High Cholesterol: Yes Chemotherapy: No Chest Pain: Yes Congestive Heart Failure: No COPD: No Cerebrovascular Accident: No Diabetes: No Diminished Hearing: No Endocrine: No Gastrointestinal Disorders: Yes (HIATAL HERNIA) GERD: Yes Glaucoma: No Genitourinary: No Headaches: No Hepatitis: No Hiatal Hernia: Yes Hypertension: Yes Immune Disorder: No Implanted Vascular Access Dvce: Yes Kidney Stones: No Musculoskeletal: No Neurologic: No Psychiatric: No Reproductive: No Respiratory: No Migraines: No Pancreatitis: Yes (chronic) Radiation Therapy: No Renal Failure: No Seizures: No Sickle Cell Disease: No Sleep Apnea: No Thyroid Disease: No Ulcer: No Menopausal: Yes : 2 Para: 2 Past Surgical History Abdominal Surgery: Yes (cholecystectomy, sphincterotomy) Arteriovenous Shunt: No Body Medical Devices: stent in abd Cardiac Surgery: No Cholecystectomy: Yes (2012) Ear Surgery: No Endocrine Surgery: No Eye Surgery: Yes Genitourinary Surgery: Yes (HEMORRHOIDECTOMY) Gynecologic Surgery: No Hysterectomy: Yes Insulin Pump: No Joint Replacement: Yes (TKR LEFT KNEE) Neurologic Surgery: No Oral Surgery: No Pacemaker: No Thoracic Surgery: No Other Surgery: Yes (GROWTH REMOVED FROM LEFT WRIST/Sinus) Social History Alcohol Use: No Tobacco Use: No Substance Use: No Allergies-Medications (Allergen,Severity, Reaction): Coded Allergies: No Known Allergies (Verified , 02/19/17) Reported Meds & Prescriptions Reported Meds & Active Scripts Active [place] (Hydrocodone-Acetaminophen) 5-325 mg Tab 1 Tab PO Q4H PRN Procardia XL (Nifedipine) 60 Mg Tab 60 Mg PO DAILY Jevity 1.5 Alexander (Nutritional Supplements) 1 Liq Liq 45 Ml JT HS 30 Days 45ml/hr from 9pm to 7am every night FLush J tube with free water, 60mL every 6 hours Flush G tube with 60mL before and after medication administration Ruel Soni Feeding Tube Pump Set 1 Mis Mis 1 Ea .ROUTE DIRECTED Zofran Odt (Ondansetron Odt) 4 Mg Tab 4 Mg SL Q8HR PRN May substitute non-ODT form. Reported Pantoprazole (Pantoprazole Sodium) 40 Mg Tab 40 Mg PO BID Creon (Amylase/Lipase/Protease) 12,000-38,000-60,000 Units Cap 1 Cap PO TIDPC Metoprolol Tartrate 25 Mg Tab 25 Mg PO BID Sucralfate 1 Gm Tab 1 Gm PO TID on empty stomach Review of Systems Except as stated in HPI: all other systems reviewed are Neg HENT: No: Headaches Cardiovascular: No: Chest Pain or Discomfort Respiratory: No: Shortness of Breath Gastrointestinal: Positive: Nausea, Vomiting, Abdominal Pain, Loss of Appetite Physical Exam Narrative GENERAL: Thin, cachectic, female. Resting comfortably in no acute distress. SKIN: Focused skin assessment warm/dry. HEAD: Atraumatic. Normocephalic. EYES: Pupils equal and round. No scleral icterus. No injection or drainage. ENT: No nasal bleeding or discharge. Mucous membranes pink and moist. NECK: Trachea midline. No JVD. CARDIOVASCULAR: Regular rate and rhythm. No murmur appreciated. RESPIRATORY: No accessory muscle use. Clear to auscultation. Breath sounds equal bilaterally. GASTROINTESTINAL: Abdomen soft, tender to palpation in left upper quadrant, positive guarding, positive rebound. Positive bowel sounds, nondistended. Hepatic and splenic margins not palpable. MUSCULOSKELETAL: No obvious deformities. No clubbing. No cyanosis. No edema. NEUROLOGICAL: Awake and alert. No obvious cranial nerve deficits. Motor grossly within normal limits. Normal speech. PSYCHIATRIC: Appropriate mood and affect; insight and judgment normal. Data Data Last Documented VS Vital Signs Date Time Temp Pulse Resp B/P Pulse Ox O2 Delivery O2 Flow Rate FiO2 02/21/17 16:15 96 Room Air 02/21/17 15:39 98.8 121 16 108/57 Orders Complete Blood Count With Diff (02/21/17 16:11) Comprehensive Metabolic Panel (02/21/17 16:11) Lipase (02/21/17 16:11) Lactic Acid (02/21/17 16:11) Iv Access Insert/Monitor (02/21/17 16:11) Ecg Monitoring (02/21/17 16:11) Oximetry (02/21/17 16:11) NPO (02/21/17 16:11) Sodium Chlor 0.9% 1000 Ml Inj (Ns 1000 M (02/21/17 16:11) Sodium Chloride 0.9% Flush (Ns Flush) (02/21/17 16:15) Ct Abd/Pel W/O Iv Contrast (02/21/17 ) Ondansetron Inj (Zofran Inj) (02/21/17 17:45) Morphine Inj (Morphine Inj) (02/21/17 17:45) Labs Laboratory Tests Test 02/21/17 02/21/17 15:20 16:20 White Blood Count 14.8 TH/MM3 Red Blood Count 3.04 MIL/MM3 Hemoglobin 8.2 GM/DL Hematocrit 25.8 % Mean Corpuscular Volume 84.8 FL Mean Corpuscular Hemoglobin 27.1 PG Mean Corpuscular Hemoglobin 31.9 % Concent Red Cell Distribution Width 18.2 % Platelet Count 628 TH/MM3 Mean Platelet Volume 7.5 FL Neutrophils (%) (Auto) 76.7 % Lymphocytes (%) (Auto) 12.6 % Monocytes (%) (Auto) 6.5 % Eosinophils (%) (Auto) 3.6 % Basophils (%) (Auto) 0.6 % Neutrophils # (Auto) 11.3 TH/MM3 Lymphocytes # (Auto) 1.9 TH/MM3 Monocytes # (Auto) 1.0 TH/MM3 Eosinophils # (Auto) 0.5 TH/MM3 Basophils # (Auto) 0.1 TH/MM3 CBC Comment AUTO DIFF Differential Total Cells 100 Counted Neutrophils % (Manual) 64 % Band Neutrophils % 4 % Lymphocytes % 15 % Monocytes % 9 % Eosinophils % 5 % Neutrophils # (Manual) 10.5 TH/MM3 Metamyelocytes 1 % Myelocytes 2 % Differential Comment FINAL DIFF MANUAL Platelet Estimate HIGH Platelet Morphology Comment NORMAL Red Cell Morphology Comment NORMAL Sodium Level 137 MEQ/L Potassium Level 4.9 MEQ/L Chloride Level 101 MEQ/L Carbon Dioxide Level 25.3 MEQ/L Anion Gap 11 MEQ/L Blood Urea Nitrogen 41 MG/DL Creatinine 2.57 MG/DL Estimat Glomerular Filtration 22 ML/MIN Rate Random Glucose 110 MG/DL Calcium Level 9.1 MG/DL Total Bilirubin 0.2 MG/DL Aspartate Amino Transf 15 U/L (AST/SGOT) Alanine Aminotransferase 10 U/L (ALT/SGPT) Alkaline Phosphatase 145 U/L Total Protein 7.2 GM/DL Albumin 2.4 GM/DL Lipase 196 U/L Lactic Acid Level 1.5 mmol/L MDM Medical Decision Making Medical Screen Exam Complete: Yes Emergency Medical Condition: Yes Interpretation(s) Last Impressions Abdomen/Pelvis CT 02/21/17 0000 Signed Impressions: Service Date/Time: Tuesday, February 21, 2017 16:42 - CONCLUSION: 1. New small left pleural effusion since 11 January. 2. Stable appearance of biliary stent and pneumobilia. 3. Placement of gastrojejunostomy feeding tube without free fluid or free air. 4. Stable pars defects and anterolisthesis at the lumbosacral junction. Jordon Gloria MD Laboratory Tests Test 02/21/17 02/21/17 15:20 16:20 White Blood Count 14.8 TH/MM3 Red Blood Count 3.04 MIL/MM3 Hemoglobin 8.2 GM/DL Hematocrit 25.8 % Mean Corpuscular Volume 84.8 FL Mean Corpuscular Hemoglobin 27.1 PG Mean Corpuscular Hemoglobin 31.9 % Concent Red Cell Distribution Width 18.2 % Platelet Count 628 TH/MM3 Mean Platelet Volume 7.5 FL Neutrophils (%) (Auto) 76.7 % Lymphocytes (%) (Auto) 12.6 % Monocytes (%) (Auto) 6.5 % Eosinophils (%) (Auto) 3.6 % Basophils (%) (Auto) 0.6 % Neutrophils # (Auto) 11.3 TH/MM3 Lymphocytes # (Auto) 1.9 TH/MM3 Monocytes # (Auto) 1.0 TH/MM3 Eosinophils # (Auto) 0.5 TH/MM3 Basophils # (Auto) 0.1 TH/MM3 CBC Comment AUTO DIFF Differential Total Cells 100 Counted Neutrophils % (Manual) 64 % Band Neutrophils % 4 % Lymphocytes % 15 % Monocytes % 9 % Eosinophils % 5 % Neutrophils # (Manual) 10.5 TH/MM3 Metamyelocytes 1 % Myelocytes 2 % Differential Comment FINAL DIFF MANUAL Platelet Estimate HIGH Platelet Morphology Comment NORMAL Red Cell Morphology Comment NORMAL Sodium Level 137 MEQ/L Potassium Level 4.9 MEQ/L Chloride Level 101 MEQ/L Carbon Dioxide Level 25.3 MEQ/L Anion Gap 11 MEQ/L Blood Urea Nitrogen 41 MG/DL Creatinine 2.57 MG/DL Estimat Glomerular Filtration 22 ML/MIN Rate Random Glucose 110 MG/DL Calcium Level 9.1 MG/DL Total Bilirubin 0.2 MG/DL Aspartate Amino Transf 15 U/L (AST/SGOT) Alanine Aminotransferase 10 U/L (ALT/SGPT) Alkaline Phosphatase 145 U/L Total Protein 7.2 GM/DL Albumin 2.4 GM/DL Lipase 196 U/L Lactic Acid Level 1.5 mmol/L Vital Signs Date Time Temp Pulse Resp B/P Pulse Ox O2 Delivery O2 Flow Rate FiO2 02/21/17 15:39 98.8 121 16 108/57 98 Differential Diagnosis Electrolyte abnormality versus acute on chronic pancreatitis versus gastroenteritis versus narcotic dependency versus other Narrative Course Patient is an 81-year-old female brought in by her daughter for evaluation of abdominal pain. Patient has a chronic history of pancreatitis as well as abdominal pain. Patient reported that the pain is been consistent for the last several weeks since her prior discharge. Patient has been taking Lortab every 4 hours at home with no relief of her symptoms. Patient asked for pain medicine immediately upon arrival. Patient was charted as being tachycardic with a heart rate of 122 upon presentation however her heart rate reassessed in the upper 90s. The patient was given IV fluids, labs and imaging were ordered. Patient has a G-tube and receives Jevity overnight. She has poor oral intake per daughter's report. CT of the abdomen and pelvis is stable when compared to prior. CBC with a white count of 14 which is improved from prior. Chemistry with elevated BUN and creatinine again this is consistent with patient 's history of chronic kidney disease stage III. Patient was given 1 L of IV fluids in the emergency department. Lactic acid is 1.5. Daughter states the patient has a follow-up appoint with her GI specialist on Wednesday. Patient was encouraged to increase oral fluid intake, and discuss with GI specialist possibly increasing tube feedings and addition of free water. Additionally they were advised to follow-up with primary care provider regarding pain management. The narcotic pain medication may be contributing to patient's lack of interest in eating. The results of labs and imaging were discussed with my attending physician who was in agreement with plan of care. Patient was encouraged to return to emergency department for any new or worsening symptoms. Daughter and patient verbalized understanding of discharge instructions. Patient stable for discharge. Diagnosis Primary Impression: Abdominal pain Qualified Code: R10.11 - Right upper quadrant abdominal pain Additional Impression: CKD (chronic kidney disease) stage 4, GFR 15-29 ml/min Referrals: [facility] On Wednesday as scheduled Primary Care Physician 2 days Patient Instructions: Abdominal Pain (ED), General Instructions, Narcotic Pain Management (ED), Tube Feeding (DC), Narcotic given in the ED Additional Instructions: Follow-up with her primary doctor Follow-up with GI specialist on Wednesday as scheduled Return to emergency department for any new or worsening symptoms Continue tube feedings at home medications as previously prescribed Med/Other Pt SpecificInfo: No Change to Meds Disposition: 01 DISCHARGE HOME Condition: Stable Mariya Taylor Feb 21, 2017 16:15
[2017-02-21 17:08] LABS: AUTOMATED NEUTROPHIL # 11.3 TH/MM3 (1.8-7.7); BASOPHIL # 0.1 TH/MM3 (0-0.2); BASOPHIL % 0.6 % (0.0-2.0); EOSINOPHIL # 0.5 TH/MM3 (0-0.4); EOSINOPHIL % 3.6 % (0.0-4.0); HEMATOCRIT 25.8 % (35.0-46.0); LYMPH % 12.6 % (9.0-44.0); LYMPHOCYTE # 1.9 TH/MM3 (1.0-4.8); MEAN CELL VOLUME 84.8 FL (80.0-100.0); MEAN CORPUSCULAR HEMOGLOBIN 27.1 PG (27.0-34.0); MEAN CORPUSCULAR HGB CONC 31.9 % (32.0-36.0); MONO % 6.5 % (0.0-8.0); NEUT % 76.7 % (16.0-70.0); PLATELET COUNT 628 TH/MM3 (150-450); RED BLOOD COUNT 3.04 MIL/MM3 (4.00-5.30); RED CELL DISTRIBUTION WIDTH 18.2 % (11.6-17.2); WHITE BLOOD COUNT 14.8 TH/MM3 (4.0-11.0)
[2017-02-21 17:12] LABS: HEMO FLAGS AUTO DIFF
--- NOTE | 2017-02-21 17:12 | RADRPT ---
EXAM DATE/TIME: 02/21/2017 16:42 [place] COMPARISON: CT ABDOMEN & PELVIS W/O CONTRAST, January 11, 2017, 10:25. INDICATIONS : Abdomen pain with nausea, vomiting and diarrhea. ORAL CONTRAST: No oral contrast ingested. RADIATION DOSE: 6.46 CTDIvol (mGy) MEDICAL HISTORY : Cardiovascular disease. Pancreatitis. Hypertension. SURGICAL HISTORY : Cholecystectomy. Hysterectomy. ENCOUNTER: Initial ACUITY: 1 yr PAIN SCALE: 4/10 LOCATION: abdomen/pelvis TECHNIQUE: Volumetric scanning of the abdomen and pelvis was performed. Using automated exposure control and ad justment of the mA and/or kV according to patient size, radiation dose was kept as low as reasonably achievable to obtain optimal diagnostic quality images. FINDINGS: Compare January 11. There is development of a small left-sided pleural effusion. Minimal basilar ate lectasis. Again seen is a biliary stent and pneumobilia, stable. There is placement of a gastrojejunostomy feed ing tube compared with the prior study. There is no free air or significant free fluid. No bowel obst ruction. No acute findings in the liver, spleen, adrenals, kidneys or pancreas. Left kidney is again noted to be atrophic. No acute bony abnormalities. CONCLUSION: 1. New small left pleural effusion since 11 January. 2. Stable appearance of biliary stent and pneumobilia. 3. Placement of gastrojejunostomy feeding tube without free fluid or free air. 4. Stable pars defects and anterolisthesis at the lumbosacral junction. Jordon Gloria MD on February 21, 2017 at 17:04 Board Certified Radiologist. This report was verified electronically.
[2017-02-21 17:28] LABS: ALKALINE PHOSPHATASE 145 U/L (45-117); ALT (GPT) 10 U/L (10-53); ANION GAP 11 MEQ/L (5-15); AST (GOT) 15 U/L (15-37); BICARBONATE 25.3 MEQ/L (21.0-32.0); BLOOD UREA NITROGEN 41 MG/DL (7-18); CHLORIDE 101 MEQ/L (98-107); GLOMERULAR FILTRATION RATE 22 ML/MIN (>89); SODIUM (NA) 137 MEQ/L (136-145); TOTAL BILIRUBIN ADULT 0.2 MG/DL (0.2-1.0)
[2017-02-21 17:31] LABS: POTASSIUM 4.9 MEQ/L (3.5-5.1)
[2017-02-21] MEDS ORDERED: ONDANSETRON HCL 4 MG/2 ML VIAL IV ONE (17:45)
[2017-02-21] MEDS ORDERED: MORPHINE SULFATE 4 MG/ML INJ IV PUSH ONE (17:45)
[2017-02-21 17:53] LABS: BANDS 4 % (0-6); EOSINOPHILS 5 % (0-4); METAMYELOCYTES 1 % (0-1); MYELOCYTES 2 % (0-0); NEUTROPHIL # MANUAL DIFF 10.5 TH/MM3 (1.8-7.7); PLATELET ESTIMATE SMEAR HIGH (NORMAL); PLATELET MORPHOLOGY NORMAL (NORMAL); POLYS (SEG NEUTROPHILS) 64 % (16-70); SCAN/DIFF FINAL DIFF MANUAL; WBC DIFF SAMPLE 100
[2017-02-21 18:45] VITALS: BP 102/56; PULSE 100; RESP 18; O2SAT 100
== END 2017-02-21 19:01 | disposition home or self-care (01) ==
LOC: NEPE 15:37
DX: R10.11 Right upper quadrant pain (principal); I12.9 Hypertensive chronic kidney disease with stage 1 through stage 4 chronic kidney disease, or unspecified chronic kidney disease; N18.4 Chronic kidney disease, stage 4 (severe); K85.90 Acute pancreatitis without necrosis or infection, unspecified; R11.2 Nausea with vomiting, unspecified; K21.9 Gastro-esophageal reflux disease without esophagitis; Z79.899 Other long term (current) drug therapy; Z93.1 Gastrostomy status
CPT/HCPCS: 74176; 80053; 83605; 83690; 85007; 85027; 96361; 96374; 96375; 99284; J2270; J2405; J7030

== ENCOUNTER 2017-02-23 14:38 | Emergency (ER) | payer MEDICARE ==
[~2017-02-23] VITALS: Ht 167.6 cm; Wt 68.5 kg
[2017-02-23 14:40] VITALS: BP 107/58; PULSE 122; RESP 16; TEMP 99.3; O2SAT 97
--- NOTE | 2017-02-23 14:45 | PD ---
Physical Exam Time Seen by Provider: 14:41 Narrative 81 year old female presents for evaluation of abdominal pain, nausea, vomiting intermittently for one year. Fourth visit here in the past week. Vital signs noted. Seen at triage desk. Awaiting bed placement. Data Data Last Documented VS Vital Signs Date Time Temp Pulse Resp B/P Pulse Ox O2 Delivery O2 Flow Rate FiO2 02/23/17 14:40 99.3 122 16 107/58 97 MDM Medical Record Reviewed: Yes Supervised Visit with ABHAY: Yes Jagjit Parks Feb 23, 2017 14:45
[2017-02-23 15:13] VITALS: RESP 18; O2SAT 99
[2017-02-23] MEDS ORDERED: ONDANSETRON HCL 4 MG/2 ML VIAL IVP ONE (15:15)
[2017-02-23] MEDS ORDERED: MORPHINE SULFATE 4 MG/ML INJ IV PUSH ONE (15:15)
[2017-02-23] MEDS: SODIUM CHLORIDE 0.9% FLUSH 10 ML FLUSH IV FLUSH PRN ×2 (15:18→16:50)
--- NOTE | 2017-02-23 15:18 | PD ---
HPI Chief Complaint: Abdominal Pain Time Seen by Provider: 14:55 Travel History International Travel<30 days: No Contact w/Intl Traveler<30days: No Traveled to known affect area: No History of Present Illness HPI Patient is a pleasant 81-year-old female with history of chronic pancreatitis with indwelling biliary stent and a GJ tube for tube feeds to presents the emergency department with complaint of abdominal pain. Patient has at approximately one year of epigastric abdominal pain, recurrent chronic pancreatitis. She states that she's been having increasing pain over the course the last day and daughter's concern for infection around her GJ tube, stating that it smells malodorous. Patient has not had any fevers or chills or vomiting but does feel nauseous and has been having some phlegm, dry heaving. Patient notes chronic one year of epigastric abdominal pain that is burning and achy in nature slightly worse. Patient was seen in our emergency department just 2 days ago on 02/21 with laboratory workup that was fairly unremarkable except for white count of 14 but that had down trended from the previous value of 40 just [address] of the abdomen and pelvis that was unremarkable for really any acute intra-abdominal changes. Daughter is concerned that patient has a infection around the G-tube site. This malodorous but it hasn't been draining, she has not noticed any redness and again denies any fevers or chills. PFSH Past Medical History Arthritis: Yes Asthma: No Atrial Fibrillation: Yes (HX YES PER PATIENT "NO") Autoimmune Disease: No Anxiety: No Depression: No Heart Rhythm Problems: Yes Cancer: No Cardiovascular Problems: Yes (HTN) High Cholesterol: Yes Chemotherapy: No Chest Pain: Yes Congestive Heart Failure: No COPD: No Cerebrovascular Accident: No Diabetes: No Diminished Hearing: No Endocrine: No Gastrointestinal Disorders: Yes (HIATAL HERNIA) GERD: Yes Glaucoma: No Genitourinary: No Headaches: No Hepatitis: No Hiatal Hernia: Yes Hypertension: Yes Immune Disorder: No Implanted Vascular Access Dvce: Yes Kidney Stones: No Musculoskeletal: No Neurologic: No Psychiatric: No Reproductive: No Respiratory: No Migraines: No Pancreatitis: Yes (chronic) Radiation Therapy: No Renal Failure: No Seizures: No Sickle Cell Disease: No Sleep Apnea: No Thyroid Disease: No Ulcer: No Menopausal: Yes : 2 Para: 2 Past Surgical History Abdominal Surgery: Yes (cholecystectomy, sphincterotomy) Arteriovenous Shunt: No Body Medical Devices: stent in abd Cardiac Surgery: No Cholecystectomy: Yes (2012) Ear Surgery: No Endocrine Surgery: No Eye Surgery: Yes Genitourinary Surgery: Yes (HEMORRHOIDECTOMY) Gynecologic Surgery: No Hysterectomy: Yes Insulin Pump: No Joint Replacement: Yes (TKR LEFT KNEE) Neurologic Surgery: No Oral Surgery: No Pacemaker: No Thoracic Surgery: No Other Surgery: Yes (GROWTH REMOVED FROM LEFT WRIST/Sinus) Social History Alcohol Use: No Tobacco Use: No Substance Use: No Allergies-Medications (Allergen,Severity, Reaction): Coded Allergies: No Known Allergies (Verified , 02/23/17) Reported Meds & Prescriptions Reported Meds & Active Scripts Active [place] (Hydrocodone-Acetaminophen) 5-325 mg Tab 1 Tab PO Q4H PRN Procardia XL (Nifedipine) 60 Mg Tab 60 Mg PO DAILY Jevity 1.5 Alexander (Nutritional Supplements) 1 Liq Liq 45 Ml JT HS 30 Days 45ml/hr from 9pm to 7am every night FLush J tube with free water, 60mL every 6 hours Flush G tube with 60mL before and after medication administration Zofran Odt (Ondansetron Odt) 4 Mg Tab 4 Mg SL Q8HR PRN May substitute non-ODT form. Reported Pantoprazole (Pantoprazole Sodium) 40 Mg Tab 40 Mg PO BID Creon (Amylase/Lipase/Protease) 12,000-38,000-60,000 Units Cap 1 Cap PO TIDPC Metoprolol Tartrate 25 Mg Tab 25 Mg PO BID Sucralfate 1 Gm Tab 1 Gm PO TID on empty stomach Review of Systems Except as stated in HPI: all other systems reviewed are Neg Physical Exam Narrative GENERAL: Pleasant elderly female in no acute distress SKIN: Focused skin assessment warm/dry. HEAD: Normocephalic. EYES: No scleral icterus. No injection or drainage. ENT: Mucous membranes pink and moist. NECK: Supple CARDIOVASCULAR: Regular tachycardic with heart rate in the 120s, regular rhythm. No murmur appreciated. RESPIRATORY: No accessory muscle use. Clear to auscultation. Breath sounds equal bilaterally. GASTROINTESTINAL: Abdomen soft, epigastric abdominal tenderness to palpation mild without rebound or guarding. Patient's GJ tube site looks collazo and dry and intact with minor monogram granulation tissue but no bleeding, discharge or drainage MUSCULOSKELETAL: No obvious deformities. No edema. NEUROLOGICAL: Awake and alert. Normal speech. PSYCHIATRIC: Appropriate mood and affect; insight and judgment normal. Data Data Last Documented VS Vital Signs Date Time Temp Pulse Resp B/P Pulse Ox O2 Delivery O2 Flow Rate FiO2 02/23/17 15:23 17 02/23/17 15:13 99 Room Air 02/23/17 14:40 99.3 122 107/58 Orders Complete Blood Count With Diff (02/23/17 15:02) Comprehensive Metabolic Panel (02/23/17 15:02) Lipase (02/23/17 15:02) Urinalysis - C+S If Indicated (02/23/17 15:02) Iv Access Insert/Monitor (02/23/17 15:02) Ecg Monitoring (02/23/17 15:02) Oximetry (02/23/17 15:02) Morphine Inj (Morphine Inj) (02/23/17 15:15) Ondansetron Inj (Zofran Inj) (02/23/17 15:15) Sodium Chloride 0.9% Flush (Ns Flush) (02/23/17 15:15) Cath For Specimen (02/23/17 15:02) Electrocardiogram (02/23/17 15:18) Sodium Chlor 0.9% 1000 Ml Inj (Ns 1000 M (02/23/17 15:30) Urine Culture (02/23/17 15:11) Ceftriaxone Inj (Rocephin Inj) (02/23/17 16:15) Acetamin-Hydrocod 325-5 Mg (Hoffman 5-325 (02/23/17 16:45) Labs Laboratory Tests Test 02/23/17 15:11 White Blood Count 14.5 TH/MM3 Red Blood Count 2.75 MIL/MM3 Hemoglobin 7.5 GM/DL Hematocrit 23.2 % Mean Corpuscular Volume 84.3 FL Mean Corpuscular Hemoglobin 27.2 PG Mean Corpuscular Hemoglobin 32.2 % Concent Red Cell Distribution Width 18.7 % Platelet Count 780 TH/MM3 Mean Platelet Volume 7.3 FL Neutrophils (%) (Auto) 75.3 % Lymphocytes (%) (Auto) 15.3 % Monocytes (%) (Auto) 6.1 % Eosinophils (%) (Auto) 2.1 % Basophils (%) (Auto) 1.2 % Neutrophils # (Auto) 10.9 TH/MM3 Lymphocytes # (Auto) 2.2 TH/MM3 Monocytes # (Auto) 0.9 TH/MM3 Eosinophils # (Auto) 0.3 TH/MM3 Basophils # (Auto) 0.2 TH/MM3 CBC Comment AUTO DIFF Differential Total Cells 100 Counted Neutrophils % (Manual) 69 % Band Neutrophils % 11 % Lymphocytes % 8 % Monocytes % 6 % Eosinophils % 3 % Neutrophils # (Manual) 12.0 TH/MM3 Metamyelocytes 3 % Differential Comment FINAL DIFF MANUAL Platelet Estimate HIGH Platelet Morphology Comment NORMAL Red Cell Morphology Comment NORMAL Urine Color YELLOW Urine Turbidity CLEAR Urine pH 7.5 Urine Specific [place] 1.011 Urine Protein 30 mg/dL Urine Glucose (UA) NEG mg/dL Urine Ketones NEG mg/dL Urine Occult Blood MOD Urine Nitrite NEG Urine Bilirubin NEG Urine Urobilinogen LESS THAN 2.0 MG/DL Urine Leukocyte Esterase LARGE Urine RBC 149 /hpf Urine WBC 49 /hpf Urine Bacteria RARE /hpf Urine Hyaline Casts 1 /lpf Microscopic Urinalysis Comment CULTURE INDICATED Sodium Level 139 MEQ/L Potassium Level 4.9 MEQ/L Chloride Level 106 MEQ/L Carbon Dioxide Level 25.4 MEQ/L Anion Gap 8 MEQ/L Blood Urea Nitrogen 32 MG/DL Creatinine 2.27 MG/DL Estimat Glomerular Filtration 25 ML/MIN Rate Random Glucose 104 MG/DL Calcium Level 9.3 MG/DL Total Bilirubin 0.2 MG/DL Aspartate Amino Transf 12 U/L (AST/SGOT) Alanine Aminotransferase 11 U/L (ALT/SGPT) Alkaline Phosphatase 132 U/L Total Protein 6.8 GM/DL Albumin 2.3 GM/DL Lipase 121 U/L [facility] Medical Decision Making Medical Screen Exam Complete: Yes Emergency Medical Condition: Yes Medical Record Reviewed: Yes Differential Diagnosis 81-year-old female with chronic pancreatitis here with complaint of chronic abdominal pain, nausea slightly worse over the last several days since ER visit 2 days ago. Differential includes chronic pain, chronic pancreatitis, gastritis , hepatobiliary pathology, dehydration, electrolyte abnormality. Overall her abdominal examination is benign and with negative CT abdomen and pelvis 2 days ago my suspicion for peritoneal pathology is low. Narrative Course Patient was on monitor, IV established and blood obtained. Twelve-lead EKG shows sinus tachycardia, rate [address] or T-wave abnormalities and normal intervals. Patient given 4 Motrin as morphine, 4 mg Zofran, 1 L normal saline bolus. CBC, CMP, lipase, urinalysis obtained and notable only for UTI, baseline renal insufficiency and leukocytosis. Heart rate normalized throughout ED visit. Patient felt improved and will be given a dose of her home rolled: Discharged home with Keflex to her G-tube. Diagnosis Primary Impression: Chronic pancreatitis Qualified Code: K86.1 - Chronic pancreatitis, unspecified pancreatitis type Additional Impression: UTI (urinary tract infection) Qualified Code: N30.00 - Acute cystitis without hematuria Referrals: Director Instructional Material 1 day Additional Instructions: Keflex for urinary tract infection. MiraLAX as needed for constipation. Follow-up with GI physician tomorrow as scheduled Med/Other Pt SpecificInfo: Prescription(s) given Scripts Cephalexin Liq 250 Mg/5 Ml [id number] Mg G-TUBE TID 7 Days Ref 0 Prov:Karina Soler MD 02/23/17 Disposition: 01 DISCHARGE HOME Condition: Stable Karina Soler MD Feb 23, 2017 15:18
[2017-02-23 15:23] VITALS: RESP 17
[2017-02-23] MEDS ORDERED: SODIUM CHLOR 0.9% 1000 ML INJ 1,000 ML IV ONE (15:30)
[2017-02-23 15:39] LABS: AUTOMATED NEUTROPHIL # 10.9 TH/MM3 (1.8-7.7); BASOPHIL # 0.2 TH/MM3 (0-0.2); BASOPHIL % 1.2 % (0.0-2.0); EOSINOPHIL # 0.3 TH/MM3 (0-0.4); EOSINOPHIL % 2.1 % (0.0-4.0); HEMATOCRIT 23.2 % (35.0-46.0); HEMO FLAGS AUTO DIFF; LYMPH % 15.3 % (9.0-44.0); LYMPHOCYTE # 2.2 TH/MM3 (1.0-4.8); MEAN CELL VOLUME 84.3 FL (80.0-100.0); MEAN CORPUSCULAR HEMOGLOBIN 27.2 PG (27.0-34.0); MEAN CORPUSCULAR HGB CONC 32.2 % (32.0-36.0); MONO % 6.1 % (0.0-8.0); NEUT % 75.3 % (16.0-70.0); PLATELET COUNT 780 TH/MM3 (150-450); RED BLOOD COUNT 2.75 MIL/MM3 (4.00-5.30); RED CELL DISTRIBUTION WIDTH 18.7 % (11.6-17.2); WHITE BLOOD COUNT 14.5 TH/MM3 (4.0-11.0)
[2017-02-23 15:55] LABS: BACTERIA, URINE RARE /hpf; BLOOD, URINE MOD (NEG); COMMENT (UR) CULTURE INDICATED; CULTURE IF INDICATED CULTURE INDICATED; GLUCOSE,URINE NEG (NEG); HYALINE CAST, URINE 1 /lpf (RARE); KETONE, URINE NEG (NEG); NITRITE,URINE NEG (NEG); PH, URINE 7.5 (5.0-8.5); URINE COLOR YELLOW (YELLW/STRAW)
[2017-02-23 16:03] LABS: ALKALINE PHOSPHATASE 132 U/L (45-117); TOTAL BILIRUBIN ADULT 0.2 MG/DL (0.2-1.0)
[2017-02-23 16:05] LABS: ALT (GPT) 11 U/L (10-53); ANION GAP 8 MEQ/L (5-15); AST (GOT) 12 U/L (15-37); BICARBONATE 25.4 MEQ/L (21.0-32.0); BLOOD UREA NITROGEN 32 MG/DL (7-18); CHLORIDE 106 MEQ/L (98-107); GLOMERULAR FILTRATION RATE 25 ML/MIN (>89); SODIUM (NA) 139 MEQ/L (136-145)
[2017-02-23 16:07] LABS: BANDS 11 % (0-6); EOSINOPHILS 3 % (0-4); METAMYELOCYTES 3 % (0-1); PLATELET ESTIMATE SMEAR HIGH (NORMAL); PLATELET MORPHOLOGY NORMAL (NORMAL); POLYS (SEG NEUTROPHILS) 69 % (16-70); SCAN/DIFF FINAL DIFF MANUAL; WBC DIFF SAMPLE 100
[2017-02-23 16:13] LABS: POTASSIUM 4.9 MEQ/L (3.5-5.1)
[2017-02-23] MEDS ORDERED: cefTRIAXone INJ 1,000 MG in SODIUM CHLORIDE 0.9% INJ 100 ML IV ONE (16:15)
[2017-02-23] MEDS ORDERED: CEPH250S G-TUBE (16:44)
[2017-02-23] MEDS ORDERED: ACETAMINOPHEN/HYDROcodone 325 MG/5 MG TAB PO ONE (16:45)
[2017-02-23 17:31] VITALS: BP 130/77; TEMP 97.8
--- NOTE | 2017-02-24 11:11 | EKG ---
Date Performed: 02/23/2017 Time Performed: 15:25:29 PTAGE: 81 years EKG: SINUS TACHYCARDIA ABNORMAL RHYTHM ECG PREVIOUS TRACING : 01/11/2017 07.30 DOCTOR: Sanford Sales Interpretating Date/Time 02/24/2017 11:11:12
== END 2017-02-23 17:31 | disposition home or self-care (01) ==
LOC: NEPC 14:38
DX: K86.1 Other chronic pancreatitis (principal); N39.0 Urinary tract infection, site not specified; R94.31 Abnormal electrocardiogram [ECG] [EKG]; I10 Essential (primary) hypertension; R11.0 Nausea
CPT/HCPCS: 51703; 80053; 81001; 83690; 85007; 85027; 87086; 93005; 96361; 96365; 96375; 99284; J0696; J2270; J2405; J7030

== ENCOUNTER 2017-03-07 15:58 | Observation (INO) | payer MEDICARE ==
[~2017-03-07] VITALS: Ht 167.6 cm; Wt 66.7 kg
[2017-03-07] VITALS (12 sets, daily range): BP systolic 101–117; BP diastolic 55–69; PULSE 81–104; RESP 14–20; TEMP 98.2–99.9; O2SAT 97–100
[~2017-03-07 15:58] MED LIST changes: +CEPH250S G-TUBE; -KANGAROO JOEY P1 MIS
[2017-03-07] MEDS ORDERED: SODIUM CHLORID 0.9% 500 ML INJ 500 ML IV ONE (16:30)
[2017-03-07] MEDS ORDERED: SODIUM CHLORIDE 0.9% FLUSH 10 ML FLUSH IV FLUSH PRN ×2 (16:30→21:30)
[2017-03-07] MEDS ORDERED: MORPHINE SULFATE 4 MG/ML INJ IV PUSH ONE (16:30)
[2017-03-07 16:48] LABS: BASOPHIL # 0.2 TH/MM3 (0-0.2); BASOPHIL % 0.9 % (0.0-2.0); EOSINOPHIL # 0.2 TH/MM3 (0-0.4); HEMATOCRIT 22.3 % (35.0-46.0); HEMO FLAGS DIFF FINAL; LYMPH % 7.5 % (9.0-44.0); LYMPHOCYTE # 1.6 TH/MM3 (1.0-4.8); MEAN CELL VOLUME 84.4 FL (80.0-100.0); MEAN CORPUSCULAR HEMOGLOBIN 26.7 PG (27.0-34.0); MEAN CORPUSCULAR HGB CONC 31.7 % (32.0-36.0); MONO % 4.3 % (0.0-8.0); NEUT % 86.3 % (16.0-70.0); PLATELET COUNT 629 TH/MM3 (150-450); RED BLOOD COUNT 2.65 MIL/MM3 (4.00-5.30); RED CELL DISTRIBUTION WIDTH 18.9 % (11.6-17.2); WHITE BLOOD COUNT 20.9 TH/MM3 (4.0-11.0)
[2017-03-07 16:59] LABS: APTT (PATIENT) 33.3 SEC (24.3-30.1); INTERNATIONAL NORMALIZED RATIO 1.2 RATIO; PROTHROMBIN TIME - PATIENT 13.4 SEC (9.8-11.6)
--- NOTE | 2017-03-07 17:12 | RADRPT ---
EXAM DATE/TIME: 03/07/2017 16:35 [facility] COMPARISON: CHEST EXPIRATION ONLY, December 22, 2015, 13:31. CHEST PA & LAT, December 07, 2015, 16:56. INDICATIONS : Chest pain MEDICAL HISTORY : Hypertension. SURGICAL HISTORY : None. ENCOUNTER: Initial ACUITY: 1 month PAIN SCORE: 4/10 LOCATION: Bilateral chest FINDINGS: PA and lateral views of the chest demonstrate the lungs to be symmetrically aerated without evidence of mass, infiltrate or effusion. The cardiomediastinal contours are unremarkable. Osseous structure s are intact. CONCLUSION: No acute cardiopulmonary disease. Stephan Crawford MD on March 07, 2017 at 17:10 Board Certified Radiologist. This report was verified electronically.
[2017-03-07 17:21] LABS: ALKALINE PHOSPHATASE 112 U/L (45-117); TOTAL BILIRUBIN ADULT 0.2 MG/DL (0.2-1.0)
[2017-03-07 17:32] LABS: ALT (GPT) 6 U/L (10-53); ANION GAP 10 MEQ/L (5-15); AST (GOT) 10 U/L (15-37); BICARBONATE 23.6 MEQ/L (21.0-32.0); BLOOD UREA NITROGEN 30 MG/DL (7-18); CHLORIDE 102 MEQ/L (98-107); GLOMERULAR FILTRATION RATE 29 ML/MIN (>89); INDIRECT BILIRUBIN 0.1 MG/DL (0.0-0.8); POTASSIUM 4.5 MEQ/L (3.5-5.1); SODIUM (NA) 136 MEQ/L (136-145)
[2017-03-07 17:56] LABS: BLOOD, URINE NEG (NEG); COMMENT (UR) CULTURE INDICATED; CULTURE IF INDICATED CULTURE INDICATED; GLUCOSE,URINE NEG (NEG); KETONE, URINE NEG (NEG); MUCUS URINE FEW /lpf (OCC); NITRITE,URINE NEG (NEG); PH, URINE 5.5 (5.0-8.5); SQUAMOUS EPITHELIAL CELL URINE 2 /hpf (0-5); URINE COLOR YELLOW (YELLW/STRAW)
[2017-03-07] MEDS ORDERED: oxyCODONE/ACETAMINOPHEN 5 MG/325 MG TAB PO ONE (18:30)
[2017-03-07] MEDS ORDERED: cefTRIAXone INJ 1,000 MG in SODIUM CHLORIDE 0.9% INJ 100 ML IV ONE (18:30)
--- NOTE | 2017-03-07 18:36 | PD ---
HPI Chief Complaint: Respiratory Distress Time Seen by Provider: 16:15 Travel History International Travel<30 days: No Contact w/Intl Traveler<30days: No Traveled to known affect area: No History of Present Illness HPI Patient is a 81 year old female with history of chronic pancreatitis with a GJ tube in place, who comes in complaining of epigastric pain and SOB. She says that this pain is different then her typical pancreatitis pain. She has been admitted several times in the past few months for chronic pancreatitis. She says today the pain is different and she was feeling very short of breath earlier today. She denies fever or chills. She denies any dizziness. PFSH Past Medical History Arthritis: Yes Asthma: No Atrial Fibrillation: Yes (HX YES PER PATIENT "NO") Autoimmune Disease: No Anxiety: No Depression: No Heart Rhythm Problems: Yes Cancer: No Cardiovascular Problems: Yes (HTN) High Cholesterol: Yes Chemotherapy: No Chest Pain: Yes Congestive Heart Failure: No COPD: No Cerebrovascular Accident: No Diabetes: No Diminished Hearing: No Endocrine: No Gastrointestinal Disorders: Yes (HIATAL HERNIA) GERD: Yes Glaucoma: No Genitourinary: No Headaches: No Hepatitis: No Hiatal Hernia: Yes Hypertension: Yes Immune Disorder: No Implanted Vascular Access Dvce: Yes Kidney Stones: No Medical other: Yes (arthritis,neck and back problems) Musculoskeletal: No Neurologic: No Psychiatric: No Reproductive: No Respiratory: No Migraines: No Pancreatitis: Yes (chronic) Radiation Therapy: No Renal Failure: No Seizures: No Sickle Cell Disease: No Sleep Apnea: No Thyroid Disease: No Ulcer: No Tetanus Vaccination: Unknown Influenza Vaccination: Yes ?: Not Menopausal: Yes : 2 Para: 2 Past Surgical History Abdominal Surgery: Yes (cholecystectomy, sphincterotomy) Arteriovenous Shunt: No Body Medical Devices: stent in abd Cardiac Surgery: No Cholecystectomy: Yes (2012) Ear Surgery: No Endocrine Surgery: No Eye Surgery: Yes Genitourinary Surgery: Yes (HEMORRHOIDECTOMY) Gynecologic Surgery: No Hysterectomy: Yes Insulin Pump: No Joint Replacement: Yes (TKR LEFT KNEE) Neurologic Surgery: No Oral Surgery: No Pacemaker: No Thoracic Surgery: No Other Surgery: Yes (GROWTH REMOVED FROM LEFT WRIST/Sinus) Social History Alcohol Use: Yes Tobacco Use: No Substance Use: No Allergies-Medications (Allergen,Severity, Reaction): Coded Allergies: No Known Allergies (Verified , 03/07/17) Reported Meds & Prescriptions Reported Meds & Active Scripts Active [place] (Hydrocodone-Acetaminophen) 5-325 mg Tab 1 Tab PO Q4H PRN Procardia XL (Nifedipine) 60 Mg Tab 60 Mg PO DAILY Jevity 1.5 Alexander (Nutritional Supplements) 1 Liq Liq 45 Ml JT HS 30 Days 45ml/hr from 9pm to 7am every night FLush J tube with free water, 60mL every 6 hours Flush G tube with 60mL before and after medication administration Zofran Odt (Ondansetron Odt) 4 Mg Tab 4 Mg SL Q8HR PRN May substitute non-ODT form. Reported Pantoprazole (Pantoprazole Sodium) 40 Mg Tab 40 Mg PO BID Creon (Amylase/Lipase/Protease) 12,000-38,000-60,000 Units Cap 1 Cap PO TIDPC Metoprolol Tartrate 25 Mg Tab 25 Mg PO BID Review of Systems Except as stated in HPI: all other systems reviewed are Neg General / Constitutional: No: Fever, Chills HENT: No: Headaches Cardiovascular: Positive: Chest Pain or Discomfort Respiratory: Positive: Shortness of Breath Gastrointestinal: Positive: Abdominal Pain Musculoskeletal: No: Myalgias, Pain Neurologic: No: Weakness Physical Exam Narrative GENERAL: Awake and alert, in no acute distress. SKIN: Focused skin assessment warm/dry. HEAD: Atraumatic. Normocephalic. EYES: Pupils equal and round. No scleral icterus. ENT: Mucous membranes pink and moist. NECK: Trachea midline. No JVD. CARDIOVASCULAR: Regular rate and rhythm. No murmur appreciated. RESPIRATORY: No accessory muscle use. Clear to auscultation. Breath sounds equal bilaterally. GASTROINTESTINAL: Abdomen soft, nondistended. Tender to palpation across the upper abdomen. No rebound or guarding. MUSCULOSKELETAL: No obvious deformities. No clubbing. No cyanosis. No edema. NEUROLOGICAL: Awake and alert. No obvious cranial nerve deficits. Motor grossly within normal limits. Normal speech. PSYCHIATRIC: Appropriate mood and affect; insight and judgment normal. Data Data Last Documented VS Vital Signs Date Time Temp Pulse Resp B/P Pulse Ox O2 Delivery O2 Flow Rate FiO2 03/07/17 18:31 101 18 117/58 97 Room Air 03/07/17 16:14 98.2 Orders Basic Metabolic Panel (Bmp) (03/07/17 16:19) Complete Blood Count With Diff (03/07/17 16:19) Lipase (03/07/17 16:19) Prothrombin Time / Inr (Pt) (03/07/17 16:19) Act Partial Throm Time (Ptt) (03/07/17 16:19) Urinalysis - C+S If Indicated (03/07/17 16:19) Ua Includes Microscopic (03/07/17 16:19) Iv Access Insert/Monitor (03/07/17 16:19) Ecg Monitoring (03/07/17 16:19) Oximetry (03/07/17 16:19) Morphine Inj (Morphine Inj) (03/07/17 16:30) Sodium Chloride 0.9% Flush (Ns Flush) (03/07/17 16:30) Hepatic Functional Panel (03/07/17 16:19) Troponin I (03/07/17 16:19) Electrocardiogram (03/07/17 ) Chest, Pa & Lat (03/07/17 ) Sodium Chlorid 0.9% 500 Ml Inj (Ns 500 M (03/07/17 16:30) Urine Culture (03/07/17 17:21) Ceftriaxone Inj (Rocephin Inj) (03/07/17 18:30) Oxycodone-Acetamin 5-325 Mg (Percocet (03/07/17 18:30) Type And Screen (03/07/17 18:49) Red Blood Cells (Rbc) (03/07/17 18:49) Blood Product Administration .UPON TRANSFUSION (03/07/17 18:49) Sodium Chlor 0.9% 250 Ml Inj (Ns 250 Ml (03/07/17 19:00) Admit Order (Ed Use Only) (03/07/17 ) Labs Laboratory Tests Test 03/07/17 03/07/17 16:35 17:21 White Blood Count 20.9 TH/MM3 Red Blood Count 2.65 MIL/MM3 Hemoglobin 7.1 GM/DL Hematocrit 22.3 % Mean Corpuscular Volume 84.4 FL Mean Corpuscular Hemoglobin 26.7 PG Mean Corpuscular Hemoglobin 31.7 % Concent Red Cell Distribution Width 18.9 % Platelet Count 629 TH/MM3 Mean Platelet Volume 7.2 FL Neutrophils (%) (Auto) 86.3 % Lymphocytes (%) (Auto) 7.5 % Monocytes (%) (Auto) 4.3 % Eosinophils (%) (Auto) 1.0 % Basophils (%) (Auto) 0.9 % Neutrophils # (Auto) 18.0 TH/MM3 Lymphocytes # (Auto) 1.6 TH/MM3 Monocytes # (Auto) 0.9 TH/MM3 Eosinophils # (Auto) 0.2 TH/MM3 Basophils # (Auto) 0.2 TH/MM3 CBC Comment DIFF FINAL Differential Comment Prothrombin Time 13.4 SEC Prothromb Time International 1.2 RATIO Ratio Activated Partial 33.3 SEC Thromboplast Time Sodium Level 136 MEQ/L Potassium Level 4.5 MEQ/L Chloride Level 102 MEQ/L Carbon Dioxide Level 23.6 MEQ/L Anion Gap 10 MEQ/L Blood Urea Nitrogen 30 MG/DL Creatinine 2.03 MG/DL Estimat Glomerular Filtration 29 ML/MIN Rate Random Glucose 86 MG/DL Calcium Level 9.2 MG/DL Total Bilirubin 0.2 MG/DL Direct Bilirubin 0.1 MG/DL Indirect Bilirubin 0.1 MG/DL Aspartate Amino Transf 10 U/L (AST/SGOT) Alanine Aminotransferase 6 U/L (ALT/SGPT) Alkaline Phosphatase 112 U/L Troponin I LESS THAN 0.02 NG/ML Total Protein 7.0 GM/DL Albumin 2.1 GM/DL Lipase 272 U/L Urine Color YELLOW Urine Turbidity HAZY Urine pH 5.5 Urine Specific [place] 1.014 Urine Protein 30 mg/dL Urine Glucose (UA) NEG mg/dL Urine Ketones NEG mg/dL Urine Occult Blood NEG Urine Nitrite NEG Urine Bilirubin NEG Urine Urobilinogen LESS THAN 2.0 MG/DL Urine Leukocyte Esterase LARGE Urine RBC 1 /hpf Urine WBC 15 /hpf Urine Squamous Epithelial 2 /hpf Cells Urine Mucus FEW /lpf Microscopic Urinalysis Comment CULTURE INDICATED MDM Medical Decision Making Medical Screen Exam Complete: Yes Emergency Medical Condition: Yes Medical Record Reviewed: Yes Interpretation(s) ECG shows sinus tachycardia at 102, no ST elevation or depression. Differential Diagnosis Pancreatitis versus cholecystitis versus cholelithiasis versus ACS Narrative Course Patient is an 81-year-old female comes in complaining of pain across her abdomen as well as shortness of breath. Exam shows tenderness to the top of the abdomen, no rebound or guarding. IV established, labs sent. Show a hemoglobin of 7.1. It has been 7.5 to 8.5 for the past month. Lipase is 272. Urinalysis is positive for infection. White blood cell count is elevated, but this is typical for her. I spoke with Dr. Dominic Maldonado, who advises admission with transfusion of one unit of blood. He will come and speak to the family. Given Rocephin for UTI. Diagnosis Primary Impression: UTI (urinary tract infection) Qualified Code: N30.00 - Acute cystitis without hematuria Additional Impressions: Anemia Qualified Code: D64.9 - Anemia, unspecified type Chronic pancreatitis Qualified Code: K86.1 - Chronic pancreatitis, unspecified pancreatitis type Admitting Information Admitting Physician Requests: Admit Condition: Stable Ankita Escamilla MD Mar 07, 2017 18:35
[2017-03-07] MEDS ORDERED: SODIUM CHLOR 0.9% 250 ML INJ 250 ML IV ONE (19:00)
[2017-03-07] MEDS: PANTOPRAZOLE SODIUM 40 MG VIAL IV PUSH SCH (20:30)
[2017-03-07] MEDS: METOPROLOL TARTRATE 25 MG TAB PO SCH (20:30)
--- NOTE | 2017-03-07 21:16 | HHI.HP ---
HPI Service [facility] Hospitalists Primary Care Physician Hong Peterson MD Admission Diagnosis pancreatitis, anemia, UTI Chief Complaint: increasing abdominal pain all week Travel History International Travel<30 Days: No Contact w/Intl Traveler <30 Da: No Traveled to Known Affected Are: No History of Present Illness Patient is a 81 year old female with history of chronic pancreatitis with a GJ tube in place, who comes in complaining of epigastric pain and SOB. She says that this pain is different then her typical pancreatitis pain. She has been admitted several times in the past few months for chronic pancreatitis. She says today the pain is different and she was feeling very short of breath earlier today. She denies fever or chills. She denies any dizziness. Patient on lab work had decrease hgb at7 and will be transfused also has uti and was given rocephin. Patient with multiple admits for pancreatitis and has been to [facility] as well ,with hx cholecystectomy and sphincterotomy,patient with reactive leukocytosis with her pancreatitis. Had ERCP 11/30 with stent placement and G/J tube placed 11/30 then removed and had repeat ERCP 12/11/15 with exchange,J tube placed again 01/29 and was started on Jevity 1.5 45ml/hr. Patient also with renal failure in past with dehydration. Patient admitted for blood transfusion and GI evaluation. Review of Systems Gastrointestinal: COMPLAINS OF: Abdominal pain Past Family Social History Past Medical History recurrent pancreatitis,reactive leukocytosis renal insufficency ,hypertension Past Surgical History J tube ERCP,cholecystectomy,hysterectomy Reported Medications [place] (Hydrocodone-Acetaminophen) 5-325 mg Tab 1 Tab PO Q4H PRN Procardia XL (Nifedipine) 60 Mg Tab 60 Mg PO DAILY Jevity 1.5 Alexander (Nutritional Supplements) 1 Liq Liq 45 Ml JT HS 30 Days 45ml/hr from 9pm to 7am every night FLush J tube with free water, 60mL every 6 hours Flush G tube with 60mL before and after medication administration Zofran Odt (Ondansetron Odt) 4 Mg Tab 4 Mg SL Q8HR PRN May substitute non-ODT form. Reported Pantoprazole (Pantoprazole Sodium) 40 Mg Tab 40 Mg PO BID Creon (Amylase/Lipase/Protease) 12,000-38,000-60,000 Units Cap 1 Cap PO TIDPC Metoprolol Tartrate 25 Mg Tab 25 Mg PO BID Allergies: Coded Allergies: No Known Allergies (Verified , 03/07/17) Social History NS,ND Physical Exam Vital Signs Vital Signs Date Time Temp Pulse Resp B/P Pulse Ox O2 Delivery O2 Flow Rate FiO2 03/07/17 20:46 98.8 90 18 110/56 100 Room Air 03/07/17 20:22 98.9 97 14 113/56 100 Room Air 03/07/17 18:31 101 18 117/58 97 Room Air 03/07/17 18:03 98 17 115/57 98 Room Air 03/07/17 17:10 104 17 110/69 100 Room Air 03/07/17 16:34 16 100 Room Air 03/07/17 16:29 100 Room Air 03/07/17 16:14 98.2 104 17 107/56 100 Physical Exam GENERAL: This is a well-nourished, well-developed patient, in no apparent distress. SKIN: No rashes, ecchymoses or lesions. Cool and dry. HEAD: Atraumatic. Normocephalic. No temporal or scalp tenderness. EYES: Pupils equal round and reactive. Extraocular motions intact. No scleral icterus. No injection or drainage. ENT: Nose without bleeding, purulent drainage or septal hematoma. Throat without erythema, tonsillar hypertrophy or exudate. Uvula midline. Airway patent. NECK: Trachea midline. No JVD or lymphadenopathy. Supple, nontender, no meningeal signs. CARDIOVASCULAR: Regular rate and rhythm without murmurs, gallops, or rubs. RESPIRATORY: Clear to auscultation. Breath sounds equal bilaterally. No wheezes , rales, or rhonchi. GASTROINTESTINAL: Abdomen soft, -tender on palpation diffusely nondistended. No hepato-splenomegaly, or palpable masses. No guarding. MUSCULOSKELETAL: Extremities without clubbing, cyanosis, or edema. No joint tenderness, effusion, or edema noted. No calf tenderness. Negative Homans sign bilaterally. NEUROLOGICAL: Awake and alert. Cranial nerves II through XII intact. Motor and sensory grossly within normal limits. Five out of 5 muscle strength in all muscle groups. Normal speech. Laboratory Laboratory Tests Test 03/07/17 03/07/17 03/07/17 16:35 17:21 18:53 White Blood Count 20.9 Red Blood Count 2.65 Hemoglobin 7.1 Hematocrit 22.3 Mean Corpuscular Volume 84.4 Mean Corpuscular Hemoglobin 26.7 Mean Corpuscular Hemoglobin 31.7 Concent Red Cell Distribution Width 18.9 Platelet Count 629 Mean Platelet Volume 7.2 Neutrophils (%) (Auto) 86.3 Lymphocytes (%) (Auto) 7.5 Monocytes (%) (Auto) 4.3 Eosinophils (%) (Auto) 1.0 Basophils (%) (Auto) 0.9 Neutrophils # (Auto) 18.0 Lymphocytes # (Auto) 1.6 Monocytes # (Auto) 0.9 Eosinophils # (Auto) 0.2 Basophils # (Auto) 0.2 CBC Comment DIFF FINAL Differential Comment Prothrombin Time 13.4 Prothromb Time International 1.2 Ratio Activated Partial 33.3 Thromboplast Time Sodium Level 136 Potassium Level 4.5 Chloride Level 102 Carbon Dioxide Level 23.6 Anion Gap 10 Blood Urea Nitrogen 30 Creatinine 2.03 Estimat Glomerular Filtration 29 Rate Random Glucose 86 Calcium Level 9.2 Total Bilirubin 0.2 Direct Bilirubin 0.1 Indirect Bilirubin 0.1 Aspartate Amino Transf 10 (AST/SGOT) Alanine Aminotransferase 6 (ALT/SGPT) Alkaline Phosphatase 112 Troponin I LESS THAN 0.02 Total Protein 7.0 Albumin 2.1 Lipase 272 Urine Color YELLOW Urine Turbidity HAZY Urine pH 5.5 Urine Specific [place] 1.014 Urine Protein 30 Urine Glucose (UA) NEG Urine Ketones NEG Urine Occult Blood NEG Urine Nitrite NEG Urine Bilirubin NEG Urine Urobilinogen LESS THAN 2.0 Urine Leukocyte Esterase LARGE Urine RBC 1 Urine WBC 15 Urine Squamous Epithelial 2 Cells Urine Mucus FEW Microscopic Urinalysis Comment CULTURE INDICATED Blood Type B POSITIVE Antibody Screen NEGATIVE Crossmatch Leukocyte-Reduced Red Blood Cells Blood Bank Comment Date/Time Procedure Status Source Growth 03/07/17 17:21 Urine Culture Received Urine Random Urine Pending Result Diagram: 03/07/17 1635 03/07/17 1635 Imaging Last 24 hours Impressions Chest X-Ray 03/07/17 0000 Signed Impressions: Service Date/Time: Tuesday, March 07, 2017 16:35 - CONCLUSION: No acute cardiopulmonary disease. Stephan Crawford MD Assessment and Plan Problem List: (1) Anemia Status: Acute Plan: in review has had decrase hgb in past will transfuse and ask GI evaluation protonix IV (2) Chronic pancreatitis Status: Chronic Plan: continue home meds (3) UTI (urinary tract infection) Status: Acute Plan: based on labs which is contributing to elevated WBC count start rocephin await culture Assessment and Plan further plan as case develops Code Status full Discussed Condition With patient Physician Certification 2 Midnight Certification Type: Admission for Inpatient Services Order for Inpatient Services The services are ordered in accordance with Medicare regulations or non- Medicare payer requirements, as applicable. In the case of services not specified as inpatient-only, they are appropriately provided as inpatient services in accordance with the 2-midnight benchmark. Estimated LOS (days): 2 2 days is the estimated time the patient will need to remain in the hospital, assuming treatment plan goals are met and no additional complications. Post-Hospital Plan: Not yet determined Problem Qualifiers (1) Anemia: Qualified Code: D64.9 - Anemia, unspecified type (2) Chronic pancreatitis: Qualified Code: K86.1 - Chronic pancreatitis, unspecified pancreatitis type (3) UTI (urinary tract infection): Qualified Code: N30.00 - Acute cystitis without hematuria Hong Peterson MD Mar 07, 2017 21:16
[2017-03-07] MEDS ORDERED: BISACODYL 10 MG SUPP RECTAL PRN (21:30)
[2017-03-07] MEDS ORDERED: NALOXONE HCL 0.4 MG/ML AMP IV PRN (21:30)
[2017-03-07] MEDS ORDERED: HYDROmorphone HCL PF 1 MG/ML VIAL IV PRN (21:30)
[2017-03-07] MEDS: ACETAMINOPHEN/HYDROcodone 325 MG/5 MG TAB PO PRN (22:30)
[2017-03-08] MEDS: ACETAMINOPHEN/HYDROcodone 325 MG/5 MG TAB PO PRN ×6 (02:31→23:17)
[2017-03-08] MEDS: SODIUM CHLOR 0.45% 1000 ML INJ 1,000 ML IV SCH ×3 (03:02→23:17)
[2017-03-08 07:18] LABS: AUTOMATED NEUTROPHIL # 17.8 TH/MM3 (1.8-7.7); BASOPHIL # 0.2 TH/MM3 (0-0.2); BASOPHIL % 0.9 % (0.0-2.0); EOSINOPHIL # 0.4 TH/MM3 (0-0.4); EOSINOPHIL % 1.8 % (0.0-4.0); HEMATOCRIT 22.7 % (35.0-46.0); HEMO FLAGS DIFF FINAL; LYMPH % 7.3 % (9.0-44.0); LYMPHOCYTE # 1.5 TH/MM3 (1.0-4.8); MEAN CELL VOLUME 85.3 FL (80.0-100.0); MEAN CORPUSCULAR HEMOGLOBIN 27.1 PG (27.0-34.0); MEAN CORPUSCULAR HGB CONC 31.7 % (32.0-36.0); MONO % 5.2 % (0.0-8.0); NEUT % 84.8 % (16.0-70.0); PLATELET COUNT 576 TH/MM3 (150-450); RED BLOOD COUNT 2.65 MIL/MM3 (4.00-5.30); RED CELL DISTRIBUTION WIDTH 18.6 % (11.6-17.2)
[2017-03-08 07:53] LABS: ALKALINE PHOSPHATASE 115 U/L (45-117); ALT (GPT) 8 U/L (10-53); ANION GAP 11 MEQ/L (5-15); AST (GOT) 5 U/L (15-37); BICARBONATE 22.9 MEQ/L (21.0-32.0); BLOOD UREA NITROGEN 29 MG/DL (7-18); CHLORIDE 104 MEQ/L (98-107); GLOMERULAR FILTRATION RATE 31 ML/MIN (>89); POTASSIUM 4.4 MEQ/L (3.5-5.1); SODIUM (NA) 138 MEQ/L (136-145); TOTAL BILIRUBIN ADULT 0.3 MG/DL (0.2-1.0)
[2017-03-08 08:00] VITALS: BP 106/57; PULSE 103; RESP 21; TEMP 98.9; O2SAT 100
--- NOTE | 2017-03-08 08:57 | PD.CONS ---
HPI History of Present Illness This is a 81 year old female with a hx of idiopathic recurrent pancreatitis, who came to the ER for further evaluation of persistent nausea/vomiting and abdominal pain. She has had multiple hospitalizations for her these symptoms and has had had extensive workup for her recurrent pancreatitis with MRCP, ERCP with sphincterotomy for suspected sphincter dysfunction vs. microlithiasis, Ig4 level, EUS, Triglycerides, and tertiary evaluation. She was evaluated for anemia with EGD/Colonoscopy (10/04/15) and this revealed an ulcer at the GE junction, thick gastric fold at pre-pyloric area, mild gastritis, duodenal inflammation in the bulb and second portion of the duodenum, small polyp in the ascending colon, and moderate internal hemorrhoids. Pathology revealed gastric antral mucosal biopsies with mild chronic gastritis exhibiting histopathologic features consistent with chemical gastropathy as may be seen with bile reflux, nonsteroidal anti-inflammatory drugs or other drug induced disease negative for intestinal metaplasia and dysplasia, gricelda stain negative for helicobacter, gastroesophageal mucosal biopsy with inflammatory changes consistent with reflux negative for intestinal metaplasia and dysplasia, colonic mucosa with adenomatous polyp. She last had an ERCP/EUS (02/12/16) and this revealed unremarkable EUS of the pancrease, a stent was noted in the CBD but otherwise was normal, ampulla with prior sphincterotomy, botherwise normal, distal CBD stricture, smooth benign, this was dilated with CRE balloon 10mm post dilatation still significant narrowing and as such a full cover 10fr 6 cm wall stent was placed, positioning satisfactor, prior to stent placement a 15 mm balloon was used to clear the bile duct and no stones were noted, normal intrahepatic biliary tree- not dialted, gallbladder not seen, normal esophagus, hiatal hernia, large antral ulcer, clean based, GJ tube, this was dislodged and at the end was repositioned into the duodenum, normal duodenum. She was evaluated with another EGD (12/16/16)---> small hiatal hernia, antral nodule. Pathology reactive/chemical gastropathy. The patient was last hospitalized from 01/11/17-02/05/17. She reports that she has continued to have severe epigastric pain since she was released from the hospital. This is a severe sharp epigastric pain that she reports is constant and that radiates to her RUQ and LUQ. She has associated nausea without vomiting, although she does spit up a small amount of white frothy spit. She reports that she has been having fevers- low grade. Her symptoms are aggravated by any po intake. She does take Lortab at home for her pain, but states that this does not seem to help. She denies any diarrhea, melena, or hematochezia. She has remained on a clear liquid diet with TF Jevity 1.5 at 45cc/hr at home. (Edwina Dodge) PFSH Past Medical History Idiopathic recurrent pancreatitis Anxiety GERD HTN Ulcer at GE junction Gastritis, Duodenitis Adenomatous colon polyp Chronic kidney disease Anemia Past Surgical History Cholecystectomy Cataract surgery Hemorrhoid surgery ERCP EUS EGD/Colonoscopy (Edwina Dodge) Coded Allergies: No Known Allergies (Verified , 03/07/17) Medications Allergies Coded Allergies Type Severity Reaction Last Updated Verified No Known Allergies 03/07/17 Yes Active Scripts Medications Dose Route/Sig Days Date Category Dose Instructions [place] (Hydrocodone-Acetaminophen) 5-325 mg Tab 1 Tab PO Q4H PRN 02/05/17 Rx Procardia XL (Nifedipine) 60 Mg Tab 60 Mg PO DAILY 02/04/17 Rx Jevity 1.5 Alexander (Nutritional Supplements) 1 Liq Liq 45 Ml JT HS 30 01/28/17 Rx 45ml/hr from 9pm to 7am every night FLush J tube with free water, 60mL every 6 hours Flush G tube with 60mL before and after medication administration Zofran Odt (Ondansetron Odt) 4 Mg Tab 4 Mg SL Q8HR PRN 12/11/16 Rx May substitute non-ODT form. Pantoprazole (Pantoprazole Sodium) 40 Mg Tab 40 Mg PO BID 12/11/16 Reported Creon (Amylase/Lipase/Protease) 12,000-38,000-60,000 Units Cap 1 Cap PO TIDPC 12/11/16 Reported Metoprolol Tartrate 25 Mg Tab 25 Mg PO BID 12/11/16 Reported Family History Denies any family history of pancreatitis. States father had some type of "chest cancer." Social History Denies tobacco, etoh use. (Edwina Dodge) Review of Systems Constitutional: COMPLAINS OF: Fatigue Respiratory: DENIES: Cough Cardiovascular: DENIES: Chest pain Gastrointestinal: COMPLAINS OF: Abdominal pain, Nausea, Swelling of Abdomen, DENIES: Black stools, Bloody stools, Vomiting, Heartburn Musculoskeletal: COMPLAINS OF: Back pain Integumentary: DENIES: Rash Hematologic/lymphatic: DENIES: Bruising Neurologic: DENIES: Headache Psychiatric: DENIES: Confusion (Edwina Dodge) GI Exam Vitals I&O Vital Signs Date Time Temp Pulse Resp B/P Pulse Ox O2 Delivery O2 Flow Rate FiO2 03/08/17 03:31 18 03/08/17 01:16 Room Air 03/07/17 22:45 99.0 88 18 101/56 100 03/07/17 22:00 99.9 88 20 101/56 100 03/07/17 21:40 85 18 103/57 99 Room Air 03/07/17 21:16 81 18 102/55 100 Room Air 03/07/17 21:03 82 18 103/58 100 Room Air 03/07/17 20:46 98.8 90 18 110/56 100 Room Air 03/07/17 20:22 98.9 97 14 113/56 100 Room Air 03/07/17 18:31 101 18 117/58 97 Room Air 03/07/17 18:03 98 17 115/57 98 Room Air 03/07/17 17:10 104 17 110/69 100 Room Air 03/07/17 16:34 16 100 Room Air 03/07/17 16:29 100 Room Air 03/07/17 16:14 98.2 104 17 107/56 100 I/O 03/07/17 03/07/17 03/07/17 03/08/17 03/08/17 03/08/17 07:00 15:00 23:00 07:00 15:00 23:00 Intake Total 669 ml Output Total 50 ml Balance 619 ml Intake Oral 120 ml IV Total 549 ml Output Urine Total 50 ml # Bowel Movements 0 Imaging Last Impressions Chest X-Ray 03/07/17 0000 Signed Impressions: Service Date/Time: Tuesday, March 07, 2017 16:35 - CONCLUSION: No acute cardiopulmonary disease. Stephan Crawford MD Laboratory Test 03/07/17 03/07/17 03/07/17 03/08/17 16:35 17:21 18:53 06:31 White Blood Count 20.9 TH/MM3 21.0 TH/MM3 Red Blood Count 2.65 MIL/MM3 2.65 MIL/MM3 Hemoglobin 7.1 GM/DL 7.2 GM/DL Hematocrit 22.3 % 22.7 % Mean Corpuscular Volume 84.4 FL 85.3 FL Mean Corpuscular Hemoglobin 26.7 PG 27.1 PG Mean Corpuscular Hemoglobin 31.7 % 31.7 % Concent Red Cell Distribution Width 18.9 % 18.6 % Platelet Count 629 TH/MM3 576 TH/MM3 Mean Platelet Volume 7.2 FL 6.9 FL Neutrophils (%) (Auto) 86.3 % 84.8 % Lymphocytes (%) (Auto) 7.5 % 7.3 % Monocytes (%) (Auto) 4.3 % 5.2 % Eosinophils (%) (Auto) 1.0 % 1.8 % Basophils (%) (Auto) 0.9 % 0.9 % Neutrophils # (Auto) 18.0 TH/MM3 17.8 TH/MM3 Lymphocytes # (Auto) 1.6 TH/MM3 1.5 TH/MM3 Monocytes # (Auto) 0.9 TH/MM3 1.1 TH/MM3 Eosinophils # (Auto) 0.2 TH/MM3 0.4 TH/MM3 Basophils # (Auto) 0.2 TH/MM3 0.2 TH/MM3 CBC Comment DIFF FINAL DIFF FINAL Differential Comment Prothrombin Time 13.4 SEC Prothromb Time International 1.2 RATIO Ratio Activated Partial 33.3 SEC Thromboplast Time Sodium Level 136 MEQ/L 138 MEQ/L Potassium Level 4.5 MEQ/L 4.4 MEQ/L Chloride Level 102 MEQ/L 104 MEQ/L Carbon Dioxide Level 23.6 MEQ/L 22.9 MEQ/L Anion Gap 10 MEQ/L 11 MEQ/L Blood Urea Nitrogen 30 MG/DL 29 MG/DL Creatinine 2.03 MG/DL 1.90 MG/DL Estimat Glomerular Filtration 29 ML/MIN 31 ML/MIN Rate Random Glucose 86 MG/DL 81 MG/DL Calcium Level 9.2 MG/DL 8.7 MG/DL Total Bilirubin 0.2 MG/DL 0.3 MG/DL Direct Bilirubin 0.1 MG/DL Indirect Bilirubin 0.1 MG/DL Aspartate Amino Transf 10 U/L 5 U/L (AST/SGOT) Alanine Aminotransferase 6 U/L 8 U/L (ALT/SGPT) Alkaline Phosphatase 112 U/L 115 U/L Troponin I LESS THAN 0.02 NG/ML Total Protein 7.0 GM/DL 6.6 GM/DL Albumin 2.1 GM/DL 1.8 GM/DL Lipase 272 U/L Urine Color YELLOW Urine Turbidity HAZY Urine pH 5.5 Urine Specific [place] 1.014 Urine Protein 30 mg/dL Urine Glucose (UA) NEG mg/dL Urine Ketones NEG mg/dL Urine Occult Blood NEG Urine Nitrite NEG Urine Bilirubin NEG Urine Urobilinogen LESS THAN 2.0 MG/DL Urine Leukocyte Esterase LARGE Urine RBC 1 /hpf Urine WBC 15 /hpf Urine Squamous Epithelial 2 /hpf Cells Urine Mucus FEW /lpf Microscopic Urinalysis Comment CULTURE INDICATED Blood Type B POSITIVE Antibody Screen NEGATIVE Crossmatch Leukocyte-Reduced Red Blood Cells Blood Bank Comment Date/Time Procedure Status Source Growth 03/07/17 17:21 Urine Culture Received Urine Random Urine Pending Physical Examination HEENT: Normocephalic; atraumatic; no jaundice. CHEST: CTA CARDIAC: RRR ABDOMEN: Soft, nondistended, epigastric/RUQ/LUQ tenderness; no hepatosplenomegaly; bowel sounds are present in all four quadrants. EXTREMITIES: No clubbing, cyanosis, or edema. SKIN: Normal; no rash; no jaundice. GOSPEL SINGER: No focal deficits; alert and oriented times three. (Edwina DodgeP) Assessment and Plan Plan ASSESSMENT: - Abdominal pain. She states that she has had severe epigastric pain that is sharp and constant, radiating to LUQ and RUQ since she was discharged. She takes lortab at home for this, but states that it does not help. She has associated nausea without vomiting. PPI. Creon. Clear liquids. Jevity 1.5 at 45cc/hr- post pylori feedings. - Anemia. H/H 7.2/22.7. Of note, she has been in the 7-8 range for several months. EGD/Colonoscopy (10/04/15) and this revealed an ulcer at the GE junction, thick gastric fold at pre-pyloric area, mild gastritis, duodenal inflammation in the bulb and second portion of the duodenum, small polyp in the ascending colon, and moderate internal hemorrhoids. Pathology revealed gastric antral mucosal biopsies with mild chronic gastritis exhibiting histopathologic features consistent with chemical gastropathy as may be seen with bile reflux, nonsteroidal anti-inflammatory drugs or other drug induced disease negative for intestinal metaplasia and dysplasia, gricelda stain negative for helicobacter , gastroesophageal mucosal biopsy with inflammatory changes consistent with reflux negative for intestinal metaplasia and dysplasia, colonic mucosa with adenomatous polyp. EGD (12/16/16)---> small hiatal hernia, antral nodule. Pathology reactive/chemical gastropathy. She does have chronic renal disease and this is likely contributing to her anemia- there does not seem to be any obvious active blood loss. - Leukocytosis. 21.0. - Chronic pancreatitis, Idiopathic. S/P extensive workup for her recurrent pancreatitis with MRCP, ERCP with sphincterotomy for suspected sphincter dysfunction vs. microlithiasis, Ig4 level, EUS, Triglycerides, and tertiary evaluation. She was evaluated for anemia with She last had an ERCP/EUS (02/12/16) and this revealed unremarkable EUS of the pancrease, a stent was noted in the CBD but otherwise was normal, ampulla with prior sphincterotomy, botherwise normal, distal CBD stricture, smooth benign, this was dilated with CRE balloon 10mm post dilatation still significant narrowing and as such a full cover 10fr 6 cm wall stent was placed, positioning satisfactor, prior to stent placement a 15 mm balloon was used to clear the bile duct and no stones were noted, normal intrahepatic biliary tree- not dialted, gallbladder not seen, normal esophagus, hiatal hernia, large antral ulcer, clean based, GJ tube, this was dislodged and at the end was repositioned into the duodenum, normal duodenum. - Acute on chronic renal disease. Cerat 1.90, GFR 31. This has actually been improving. PLAN: - Clear liquids - Jevity 1.5 at 45cc/hr - PPI - Creon - Hemoccult stool - Monitor HH - Transfuse as necessary - Supportive care - Further recommendations to follow based on results of above - Pt seen and examined by Dr. Ortega and myself and this note is written on his behalf (Edwina Dodge) Physician Comments Patient seen and examined Agree with above Continue with current supportive care Monitor labs As for the anemia is probably multifactorial between renal failure and malnutrition But due to the fact that she hasn't had a colonoscopy in a while will probably pursue a colonoscopy prior to discharge (Gregg Ortega MD) Edwina Dodge Mar 08, 2017 08:57 Gregg Ortega MD Mar 09, 2017 00:16
[2017-03-08] MEDS: NIFEdipine 60 MG SUSTAINED RELEASE TAB PO SCH (09:53)
[2017-03-08] MEDS: METOPROLOL TARTRATE 25 MG TAB PO SCH ×2 (09:53→21:41)
[2017-03-08] MEDS: LIPASE/PROTEASE/AMYLASE (12,000/38,000/60,000) CAP PO SCH ×3 (09:53→18:03)
[2017-03-08] MEDS: SODIUM CHLORIDE 0.9% FLUSH 10 ML FLUSH IV FLUSH SCH ×2 (09:56→21:42)
[2017-03-08] MEDS ORDERED: FUROSEMIDE 20 MG/2 ML VIAL IV ONE (11:45)
[2017-03-08] MEDS ORDERED: SODIUM CHLOR 0.9% 250 ML INJ 250 ML IV ONE (11:45)
--- NOTE | 2017-03-08 11:53 | HHI.PR ---
Subjective Remarks No new complaints. Objective Vitals Vital Signs Date Time Temp Pulse Resp B/P Pulse Ox O2 Delivery O2 Flow Rate FiO2 03/08/17 08:00 98.9 103 21 106/57 100 03/08/17 03:31 18 03/08/17 01:16 Room Air 03/07/17 22:45 99.0 88 18 101/56 100 03/07/17 22:00 99.9 88 20 101/56 100 03/07/17 21:40 85 18 103/57 99 Room Air 03/07/17 21:16 81 18 102/55 100 Room Air 03/07/17 21:03 82 18 103/58 100 Room Air 03/07/17 20:46 98.8 90 18 110/56 100 Room Air 03/07/17 20:22 98.9 97 14 113/56 100 Room Air 03/07/17 18:31 101 18 117/58 97 Room Air 03/07/17 18:03 98 17 115/57 98 Room Air 03/07/17 17:10 104 17 110/69 100 Room Air 03/07/17 16:34 16 100 Room Air 03/07/17 16:29 100 Room Air 03/07/17 16:14 98.2 104 17 107/56 100 03/07/17 03/07/17 03/08/17 15:00 23:00 07:00 Intake Total 669 ml Output Total 50 ml Balance 619 ml Intake Oral 120 ml IV Total 549 ml Output Urine Total 50 ml # Bowel Movements 0 Result Diagram: 03/08/17 0631 03/08/17 0631 Imaging Last 24 hours Impressions Chest X-Ray 03/07/17 0000 Signed Impressions: Service Date/Time: Tuesday, March 07, 2017 16:35 - CONCLUSION: No acute cardiopulmonary disease. Stephan Crawford MD Objective Remarks GENERAL: This is a well-nourished, well-developed patient, in no apparent distress. CARDIOVASCULAR: Regular rate and rhythm without murmurs, gallops, or rubs. RESPIRATORY: Clear to auscultation. Breath sounds equal bilaterally. No wheezes , rales, or rhonchi. GASTROINTESTINAL: Abdomen soft, non-tender, nondistended. Normal active bowel sounds MUSCULOSKELETAL: Extremities without clubbing, cyanosis, or edema. NEURO: Alert & Oriented x4 to person, place, time, situation. Moves all ext x4 A/P Problem List: (1) Anemia Status: Acute Plan: - Pt has prior h/o iron deficiency anemia - last Colonoscopy [address] Lino, pathology (10/04/15) --> adenomatous polyp - last EGD 02/12/[address] Ortega - gastric ulcer. Pathology: predominantly necroinflammatory exudate c/w ulceration with rare detached fragments of benign gastric mucosa - Pt has seen Hematology in the past, Dr. Bebeto Madsen, last visit 02/10/16 - Dr. Madsen felt pt's anemia was multifactorial d/t CKD & intermittent GIB with iron deficiency - pt received IV iron 01/2013 - IV protonix - anticipate repeat EGD/Colonoscopy with GI during this hospitalization - request Hematology Consultation for review of pt's recurrent anemia (2) Chronic pancreatitis Status: Chronic Plan: - continue creon - tube feeding G/J tube (3) UTI (urinary tract infection) Status: Acute Plan: - abnormal UA - pt started on rocephin upon admission - follow culture results (4) HTN (hypertension) Status: Chronic Plan: - metoprolol, procardia XL Problem Qualifiers (1) Anemia: (2) Chronic pancreatitis: Qualified Code: K86.1 - Chronic pancreatitis, unspecified pancreatitis type (3) UTI (urinary tract infection): Qualified Code: N30.00 - Acute cystitis without hematuria (4) HTN (hypertension): Qualified Code: I10 - Essential hypertension Alexander Eddy DO Mar 08, 2017 11:53
[2017-03-08 13:35] VITALS: BP 100/55; PULSE 91; RESP 14; TEMP 95.6; O2SAT 99
[2017-03-08 13:50] VITALS: BP 95/59; PULSE 96; RESP 17; TEMP 98.4; O2SAT 99
--- NOTE | 2017-03-08 14:33 | EKG ---
Date Performed: 03/07/2017 Time Performed: 16:48:58 PTAGE: 81 years EKG: SINUS TACHYCARDIA POSSIBLE LEFT ATRIAL ENLARGEMENT NONSPECIFIC T-WAVE ABNORMALITY ABNORMAL RHYTHM ECG NO PREVIOUS TRACING DOCTOR: Jacob Bernal Interpretating Date/Time 03/08/2017 14:27:56
[2017-03-08 17:35] VITALS: BP 100/55; PULSE 102; RESP 16; TEMP 97.2; O2SAT 100
[2017-03-08] MEDS: cefTRIAXone INJ 1,000 MG in SODIUM CHLORIDE 0.9% INJ 100 ML IV SCH (17:53)
[2017-03-08 18:45] VITALS: BP 100/55; PULSE 102; RESP 16; TEMP 97.2; O2SAT 100
[2017-03-08 19:00] VITALS: BP 112/62; PULSE 101; RESP 17; TEMP 98.2; O2SAT 100
[2017-03-08] MEDS: PANTOPRAZOLE SODIUM 40 MG VIAL IV PUSH SCH (21:42)
[2017-03-08] MEDS: ONDANSETRON HCL 4 MG/2 ML VIAL IVP PRN (23:20)
[2017-03-09] VITALS (8 sets, daily range): BP systolic 104–123; BP diastolic 56–68; PULSE 95–106; RESP 16–20; TEMP 95.7–97.4; O2SAT 95–100
[2017-03-09] MEDS: ACETAMINOPHEN/HYDROcodone 325 MG/5 MG TAB PO PRN ×6 (02:35→23:34)
[2017-03-09 06:22] LABS: AUTOMATED NEUTROPHIL # 19.9 TH/MM3 (1.8-7.7); BASOPHIL # 0.2 TH/MM3 (0-0.2); BASOPHIL % 0.9 % (0.0-2.0); EOSINOPHIL # 0.3 TH/MM3 (0-0.4); EOSINOPHIL % 1.2 % (0.0-4.0); HEMATOCRIT 29.5 % (35.0-46.0); HEMO FLAGS DIFF FINAL; LYMPH % 7.9 % (9.0-44.0); LYMPHOCYTE # 1.9 TH/MM3 (1.0-4.8); MEAN CELL VOLUME 80.2 FL (80.0-100.0); MEAN CORPUSCULAR HEMOGLOBIN 26.5 PG (27.0-34.0); MONO % 4.5 % (0.0-8.0); NEUT % 85.5 % (16.0-70.0); PLATELET COUNT 564 TH/MM3 (150-450); RED BLOOD COUNT 3.68 MIL/MM3 (4.00-5.30); RED CELL DISTRIBUTION WIDTH 23.7 % (11.6-17.2); WHITE BLOOD COUNT 23.3 TH/MM3 (4.0-11.0)
[2017-03-09 06:43] LABS: BICARBONATE 22.2 MEQ/L (21.0-32.0); MAGNESIUM 2.1 MG/DL (1.5-2.5); POTASSIUM 4.1 MEQ/L (3.5-5.1)
[2017-03-09] MEDS: SODIUM CHLORIDE 0.9% FLUSH 10 ML FLUSH IV FLUSH SCH ×2 (08:52→20:25)
[2017-03-09] MEDS: LIPASE/PROTEASE/AMYLASE (12,000/38,000/60,000) CAP PO SCH ×3 (08:52→18:53)
[2017-03-09] MEDS: METOPROLOL TARTRATE 25 MG TAB PO SCH ×2 (08:52→20:25)
[2017-03-09] MEDS: NIFEdipine 60 MG SUSTAINED RELEASE TAB PO SCH (08:52)
--- NOTE | 2017-03-09 10:07 | HHI.GIFU ---
Subjective Remarks States she had quite a bit of nausea overnight and therefore her TF was turned off. Continues to have epigastric pain, "some" relief with pain meds, but they do not completely alleviate her pain. Does not feel that she will be able to take bowel prep for colonoscopy until her nausea improves. (Edwina Dodge) Objective Vitals I&O Vital Signs Date Time Temp Pulse Resp B/P Pulse Ox O2 Delivery O2 Flow Rate FiO2 03/09/17 05:15 106 20 110/65 100 03/09/17 04:00 97.0 97 17 108/61 100 03/09/17 04:00 Room Air 03/09/17 00:00 97.0 98 16 104/56 95 03/09/17 00:00 Room Air 03/08/17 20:00 Room Air 03/08/17 19:00 98.2 101 17 112/62 100 03/08/17 18:45 97.2 102 16 100/55 100 03/08/17 17:35 97.2 102 16 100/55 100 03/08/17 17:35 97.2 102 16 100/55 100 03/08/17 13:50 98.4 96 17 95/59 99 03/08/17 13:50 98.4 96 17 95/59 99 03/08/17 13:35 95.6 91 14 100/55 99 03/08/17 13:35 95.6 91 14 100/55 99 I/O 03/08/17 03/08/17 03/08/17 03/09/17 03/09/17 03/09/17 07:00 15:00 23:00 07:00 15:00 23:00 Intake Total 819 ml 240 ml 1062 ml 1035 ml Output Total 50 ml 750 ml Balance 769 ml -510 ml 1062 ml 1035 ml Intake Oral 120 ml 240 ml 240 ml 120 ml IV Total 549 ml 575 ml Tube Feeding 402 ml 340 ml Packed Cells 150 ml 420 ml Output Urine Total 50 ml 750 ml # Voids 3 1 1 # Bowel Movements 0 0 0 Laboratory Laboratory Tests Test 03/08/17 03/09/17 12:07 05:43 Blood Type B POSITIVE Crossmatch Leukocyte-Reduced Red Blood Cells Blood Bank Comment White Blood Count 23.3 Red Blood Count 3.68 Hemoglobin 9.7 Hematocrit 29.5 Mean Corpuscular Volume 80.2 Mean Corpuscular Hemoglobin 26.5 Mean Corpuscular Hemoglobin 33.0 Concent Red Cell Distribution Width 23.7 Platelet Count 564 Mean Platelet Volume 6.8 Neutrophils (%) (Auto) 85.5 Lymphocytes (%) (Auto) 7.9 Monocytes (%) (Auto) 4.5 Eosinophils (%) (Auto) 1.2 Basophils (%) (Auto) 0.9 Neutrophils # (Auto) 19.9 Lymphocytes # (Auto) 1.9 Monocytes # (Auto) 1.0 Eosinophils # (Auto) 0.3 Basophils # (Auto) 0.2 CBC Comment DIFF FINAL Differential Comment Sodium Level 139 Potassium Level 4.1 Chloride Level 105 Carbon Dioxide Level 22.2 Anion Gap 12 Blood Urea Nitrogen 30 Creatinine 1.90 Estimat Glomerular Filtration 31 Rate Random Glucose 147 Calcium Level 8.4 Magnesium Level 2.1 Date/Time Procedure Status Source Growth 03/07/17 17:21 Urine Culture - Final Complete Urine Random Urine 50-100,000 CFU/ML MIXED DINORAH... Imaging Last Impressions Chest X-Ray 03/07/17 0000 Signed Impressions: Service Date/Time: Tuesday, March 07, 2017 16:35 - CONCLUSION: No acute cardiopulmonary disease. Stephan Crawford MD Physical Exam HEENT: Normocephalic; atraumatic; no jaundice. CHEST: CTA CARDIAC: RRR ABDOMEN: Soft, nondistended, epigastric/RUQ/LUQ tenderness; no hepatosplenomegaly; bowel sounds are present in all four quadrants. EXTREMITIES: No clubbing, cyanosis, or edema. SKIN: Normal; no rash; no jaundice. VIDEO CONTROL OPERATOR: No focal deficits; alert and oriented times three (Edwina Dodge [facility]) Assessment and Plan Plan ASSESSMENT: - Abdominal pain, NV. She states that she has had severe epigastric pain that is sharp and constant, radiating to LUQ and RUQ since she was discharged. She takes lortab at home for this, but states that it does not help. She has associated nausea without vomiting. PPI. Creon. Zofran. Clear liquids. Jevity 1.5 at 45cc/hr- post pylori feedings- this was turned off last night secondary to nausea/pain. She is willing to try this again today. - Anemia. H/H 7.2/22.7. Of note, she has been in the 7-8 range for several months. EGD/Colonoscopy (10/04/15) and this revealed an ulcer at the GE junction, thick gastric fold at pre-pyloric area, mild gastritis, duodenal inflammation in the bulb and second portion of the duodenum, small polyp in the ascending colon, and moderate internal hemorrhoids. Pathology revealed gastric antral mucosal biopsies with mild chronic gastritis exhibiting histopathologic features consistent with chemical gastropathy as may be seen with bile reflux, nonsteroidal anti-inflammatory drugs or other drug induced disease negative for intestinal metaplasia and dysplasia, gricelda stain negative for helicobacter , gastroesophageal mucosal biopsy with inflammatory changes consistent with reflux negative for intestinal metaplasia and dysplasia, colonic mucosa with adenomatous polyp. EGD (12/16/16)---> small hiatal hernia, antral nodule. Pathology reactive/chemical gastropathy. She does have chronic renal disease and this is likely contributing to her anemia- there does not seem to be any obvious active blood loss. Will plan for colonoscopy prior to d/c, but patient is unable to take bowel prep at this time. S/P 3 units PRBC. H/H 9.7/29.5 - Leukocytosis. 23.0. Afebrile. - Chronic pancreatitis, Idiopathic. S/P extensive workup for her recurrent pancreatitis with MRCP, ERCP with sphincterotomy for suspected sphincter dysfunction vs. microlithiasis, Ig4 level, EUS, Triglycerides, and tertiary evaluation. She was evaluated for anemia with She last had an ERCP/EUS (02/12/16) and this revealed unremarkable EUS of the pancrease, a stent was noted in the CBD but otherwise was normal, ampulla with prior sphincterotomy, botherwise normal, distal CBD stricture, smooth benign, this was dilated with CRE balloon 10mm post dilatation still significant narrowing and as such a full cover 10fr 6 cm wall stent was placed, positioning satisfactor, prior to stent placement a 15 mm balloon was used to clear the bile duct and no stones were noted, normal intrahepatic biliary tree- not dialted, gallbladder not seen, normal esophagus, hiatal hernia, large antral ulcer, clean based, GJ tube, this was dislodged and at the end was repositioned into the duodenum, normal duodenum. - Acute on chronic renal disease. Cerat 1.90, GFR 31. This has actually been improving. PLAN: - Clear liquids - Resume TF Jevity 1.5 at 45cc/hr via J tube - PPI - Creon - Zofran prn - Monitor HH - Transfuse as necessary - Hemoccult stool - Supportive care - Will plan for colonoscopy prior to d/c to evaluate anemia- unable to tolerate prep at this time. - Further recommendations to follow based on results of above - Pt seen and examined by Dr. Ortega and myself and this note is written on his behalf (Edwina Dodge) Physician Comments Patient seen and examined Agree with above Continue with current supportive care Monitor labs We'll pursue endoscopy when patient is able to prep (Gregg Ortega MD) Edwina Dodge Mar 09, 2017 10:07 Gregg Ortega MD Mar 09, 2017 22:53
[2017-03-09] MEDS: ONDANSETRON HCL 4 MG/2 ML VIAL IVP PRN (12:13)
--- NOTE | 2017-03-09 14:18 | HHI.PR ---
Subjective Remarks Pt had nausea last night and TF was stopped, now resumed. Pt unwilling to attempt bowel prep d/t nausea. Pt continues with vague abdominal discomfort. Objective Vitals Vital Signs Date Time Temp Pulse Resp B/P Pulse Ox O2 Delivery O2 Flow Rate FiO2 03/09/17 08:00 96.7 102 16 110/68 100 03/09/17 05:15 106 20 110/65 100 03/09/17 04:00 97.0 97 17 108/61 100 03/09/17 04:00 Room Air 03/09/17 00:00 97.0 98 16 104/56 95 03/09/17 00:00 Room Air 03/08/17 20:00 Room Air 03/08/17 19:00 98.2 101 17 112/62 100 03/08/17 18:45 97.2 102 16 100/55 100 03/08/17 17:35 97.2 102 16 100/55 100 03/08/17 17:35 97.2 102 16 100/55 100 03/08/17 03/08/17 03/09/17 15:00 23:00 07:00 Intake Total 240 ml 1062 ml 1035 ml Output Total 750 ml Balance -510 ml 1062 ml 1035 ml Intake Oral 240 ml 240 ml 120 ml IV Total 575 ml Tube Feeding 402 ml 340 ml Packed Cells 420 ml Output Urine Total 750 ml # Voids 3 1 1 # Bowel Movements 0 0 Result Diagram: 03/09/17 0543 03/09/17 0543 Imaging Last 24 hours Impressions Chest X-Ray 03/07/17 0000 Signed Impressions: Service Date/Time: Tuesday, March 07, 2017 16:35 - CONCLUSION: No acute cardiopulmonary disease. Stephan Crawford MD Objective Remarks GENERAL: This is a well-nourished, well-developed patient, in no apparent distress. CARDIOVASCULAR: Regular rate and rhythm without murmurs, gallops, or rubs. RESPIRATORY: Clear to auscultation. Breath sounds equal bilaterally. No wheezes , rales, or rhonchi. GASTROINTESTINAL: Abdomen soft, non-tender, nondistended. Normal active bowel sounds MUSCULOSKELETAL: Extremities without clubbing, cyanosis, or edema. NEURO: Alert & Oriented x4 to person, place, time, situation. Moves all ext x4 A/P Problem List: (1) Anemia Status: Acute Plan: - comgmt with GI and Hematology - Pt has prior h/o iron deficiency anemia - last Colonoscopy [address] Lino, pathology (10/04/15) --> adenomatous polyp - last EGD 02/12/[address] Ortega - gastric ulcer. Pathology: predominantly necroinflammatory exudate c/w ulceration with rare detached fragments of benign gastric mucosa - Pt has seen Hematology in the past, Dr. Bebeto Madsen, last visit 02/10/16 - Dr. Madsen felt pt's anemia was multifactorial d/t CKD & intermittent GIB with iron deficiency - pt received IV iron 01/2013 - pt transfused 3 units PRBCs - Hg 7.1 (03/07) - Hg 9.7 (03/09) - IV protonix - obtain EGD/Colonoscopy once pt able to tolerate bowel prep - anemia lab w/u per Hematology (2) Chronic pancreatitis Status: Chronic Plan: - continue creon - tube feeding G/J tube (3) UTI (urinary tract infection) Status: Acute Plan: - abnormal UA - pt started on rocephin upon admission - follow culture results (4) HTN (hypertension) Status: Chronic Plan: - metoprolol, procardia XL Problem Qualifiers (1) Anemia: (2) Chronic pancreatitis: Qualified Code: K86.1 - Chronic pancreatitis, unspecified pancreatitis type (3) UTI (urinary tract infection): Qualified Code: N30.00 - Acute cystitis without hematuria (4) HTN (hypertension): Qualified Code: I10 - Essential hypertension Alexander Eddy DO Mar 09, 2017 14:18
[2017-03-09 17:39] LABS: FERRITIN 943 NG/ML (8-252); LDH SERUM 111 U/L (84-246); TRANSFERRIN IRON PROFILE 65 MG/DL (200-360)
[2017-03-09 17:49] LABS: WESTERGREN SEDIMENTATION RATE GREATER THAN 140 mm/hr (0-30)
--- NOTE | 2017-03-09 18:48 | MB ---
cc: MEAGAN DOVE M.D. DATE OF CONSULTATION 03/09/[address] Eddy REASON FOR CONSULTATION Hematology consulted to render opinion regarding patient with chronic anemia. HISTORY OF THE PRESENT ILLNESS The patient is an 81-year-old female with history of recurrent pancreatitis. Admitted to hospital again with nausea, vomiting and midepigastric abdominal pain. She also has subjective fever and chills with sweats. She was found to have worsening anemia. Hematology was consulted for further evaluation. Reportedly she has seen Dr. Madsen in 2016 for a workup of anemia which was unremarkable. The patient however is a real poor historian. Could not tell me any details of her workup. She has had extensive GI workup in the past which did not show any active GI bleeding. She denies any melena, hematochezia. No dysuria, hematuria. During this hospital stay she had 2 units of packed red blood cells transfusion. PAST MEDICAL HISTORY 1. Recurrent pancreatitis for last 4 years, had extensive workup in the past. 2. Gastric ulcer. 3. Gastroesophageal reflux disease. 4. Anxiety. 5. Hypertension. 6. Gastritis and duodenitis. 7. Colon polyps. 8. Chronic kidney disease. 9. Chronic anemia. PAST SURGICAL HISTORY 1. ERCP with sphincterotomy. 2. Common bile duct stent placement. 3. Cholecystectomy. 4. Cataract surgery. 5. Hemorrhoidectomy. 6. Endoscopic ultrasound EGD in December of 2016. 7. Colonoscopy in September of 2015. FAMILY HISTORY Noncontributory. SOCIAL HISTORY No tobacco or alcohol use. ALLERGIES No known drug allergy. CURRENT MEDICATIONS 1. Ceftriaxone. 2. Creon. 3. Nifedipine. 4. Metoprolol. 5. Protonix. REVIEW OF SYSTEMS CONSTITUTIONAL: She has been having low grade subjective fever, chills and sweats. She has ___ lost weight. EYES: Denies any blurred vision, double vision. EAR, NOSE, AND THROAT: Denies any mouth sores or voice changes. As above. CARDIOVASCULAR: Denies any chest pressure, palpitations. RESPIRATORY: Has dyspnea on exertion. Denies any significant cough. GASTROINTESTINAL: As above. GENITOURINARY: Denies any dysuria, hematuria. MUSCULOSKELETAL: Negative. HEMATOLOGIC: As above. ENDOCRINE: Negative. DERMATOLOGIC: Negative. PSYCHIATRIC: Negative. NEUROLOGICAL: Negative. PHYSICAL EXAMINATION VITAL SIGNS: Temperature 96.7, pulse 102, blood pressure 110/60, O2 saturation 100% room air. GENERAL: She is alert and oriented times three, in no acute distress. HEENT: Atraumatic, normocephalic. Pupils equal, round and reactive to light. Extraocular muscles intact. No scleral icterus. Oropharynx dry mucosa. No lesion or thrush. No mucositis. NECK: No thyromegaly. No palpable masses. LYMPHATICS: No palpable cervical, clavicular, axillary, inguinal lymph node. CARDIOVASCULAR: Regular S1-S2. No murmur. LUNGS: Clear to auscultation anteriorly. ABDOMEN: Soft. Tender in the upper abdomen. No rebound. No rigidity. I could not palpate liver or spleen. EXTREMITIES: No cyanosis, clubbing. No significant edema. SKIN: No rash or petechiae. NEUROLOGIC: Nonfocal. LABORATORY DATA Reviewed. ASSESSMENT 1. Anemia which appeared to be chronic. She had upper endoscopy December 2016 which showed gastritis, duodenitis but no active bleeding. Colonoscopy September 2015 also did not show any active bleeding. Her last iron study in January did not show clear evidence of iron deficiency. I think her anemia is likely multifactorial due to chronic kidney disease, chronic inflammatory process with recurrent pancreatitis. She just had transfusion and it is difficult to interpret her iron studies. I am going to check her vitamin study and C-reactive protein. I will also review her smear. She has history of chronic leukocytosis likely due to pancreatitis but we will need to look for chronic myeloproliferative disorder which could cause anemia. I am going to check her ABIMBOLA-2 mutation. For now I agree with supporting her with transfusion as needed. 2. Leukocytosis which also appeared to be chronic. She did have two normal white blood cell count in December but most of her white blood cell counts have been elevated since last year. 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 However I am going to review her peripheral smear and check a ABIMBOLA-2 mutation to rule out chronic myeloproliferative disorder. 3. Thrombocytosis which has been going on and off. 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 4. Recurrent pancreatitis. She has had extensive GI workup in the past. GI is following at this time. 5. Urinary tract infection on antibiotic. 6. Hypertension. RECOMMENDATIONS 1. Pathology to review a peripheral smear. 2. Check iron study, vitamin study and ABIMBOLA-2 mutation. 3. Agree with transfusion as needed to keep hemoglobin above 7. 4. Consider giving her Epogen if workup is unremarkable. Thank you Dr. Eddy for asking me to see this patient. I will follow with you. MD DARY Holt/AMBER /5:39 PM /6:17 PM MTDConnie
[2017-03-09] MEDS: cefTRIAXone INJ 1,000 MG in SODIUM CHLORIDE 0.9% INJ 100 ML IV SCH (18:53)
[2017-03-09] MEDS: SODIUM CHLOR 0.45% 1000 ML INJ 1,000 ML IV SCH (18:54)
[2017-03-09] MEDS: PANTOPRAZOLE SODIUM 40 MG VIAL IV PUSH SCH (20:25)
[2017-03-10] MEDS: SODIUM CHLOR 0.45% 1000 ML INJ 1,000 ML IV SCH ×2 (02:43→20:56)
[2017-03-10] MEDS: ACETAMINOPHEN/HYDROcodone 325 MG/5 MG TAB PO PRN ×5 (03:31→19:49)
[2017-03-10] MEDS: ONDANSETRON HCL 4 MG/2 ML VIAL IVP PRN ×2 (06:23→19:48)
[2017-03-10 07:07] LABS: AUTOMATED NEUTROPHIL # 21.6 TH/MM3 (1.8-7.7); BASOPHIL # 0.1 TH/MM3 (0-0.2); BASOPHIL % 0.4 % (0.0-2.0); EOSINOPHIL # 0.3 TH/MM3 (0-0.4); EOSINOPHIL % 1.3 % (0.0-4.0); HEMO FLAGS DIFF FINAL; LYMPH % 6.4 % (9.0-44.0); LYMPHOCYTE # 1.6 TH/MM3 (1.0-4.8); MEAN CELL VOLUME 80.8 FL (80.0-100.0); MEAN CORPUSCULAR HEMOGLOBIN 26.4 PG (27.0-34.0); MEAN CORPUSCULAR HGB CONC 32.7 % (32.0-36.0); MONO % 4.2 % (0.0-8.0); NEUT % 87.7 % (16.0-70.0); PLATELET COUNT 550 TH/MM3 (150-450); RED BLOOD COUNT 3.59 MIL/MM3 (4.00-5.30); RED CELL DISTRIBUTION WIDTH 24.2 % (11.6-17.2); WHITE BLOOD COUNT 24.7 TH/MM3 (4.0-11.0)
[2017-03-10 07:33] LABS: BICARBONATE 22.4 MEQ/L (21.0-32.0); MAGNESIUM 1.9 MG/DL (1.5-2.5); POTASSIUM 4.1 MEQ/L (3.5-5.1)
[2017-03-10] MEDS: LIPASE/PROTEASE/AMYLASE (12,000/38,000/60,000) CAP PO SCH ×3 (07:45→18:30)
[2017-03-10] MEDS: METOPROLOL TARTRATE 25 MG TAB PO SCH ×2 (07:45→20:55)
[2017-03-10] MEDS: NIFEdipine 60 MG SUSTAINED RELEASE TAB PO SCH (07:45)
[2017-03-10] MEDS: SODIUM CHLORIDE 0.9% FLUSH 10 ML FLUSH IV FLUSH SCH ×2 (07:48→19:50)
[2017-03-10 08:00] VITALS: BP 102/52; PULSE 103; RESP 18; TEMP 97.5; O2SAT 96
--- NOTE | 2017-03-10 08:05 | PD.ONC.PN ---
Subjective Subjective Remarks Abdominal pain the same. Objective Data Date Time Temp Pulse Resp B/P Pulse Ox O2 Delivery O2 Flow Rate FiO2 03/09/17 23:45 97.4 95 17 123/64 97 03/09/17 20:00 100 Room Air 03/09/17 20:00 97.0 106 16 117/66 03/09/17 16:30 96.1 98 16 105/56 98 03/09/17 12:00 95.7 99 18 109/66 98 03/10/17 03/10/17 03/10/17 07:00 15:00 23:00 Intake Total 1228 ml Balance 1228 ml Result Diagram: 03/10/17 0547 03/10/17 0547 Laboratory Results Laboratory Tests Test 03/09/17 03/10/17 16:20 05:47 Blood Smear Pathologist Review Erythrocyte Sedimentation Rate GREATER THAN 140 mm/hr Iron Level 15 MCG/DL Total Iron Binding Capacity 91 MCG/DL Percent Iron Saturation 16.5 % Ferritin 943 NG/ML Lactate Dehydrogenase 111 U/L C-Reactive Protein 17.00 MG/DL Vitamin B12 Level 1287 PG/ML Folate 4.5 NG/ML White Blood Count 24.7 TH/MM3 Red Blood Count 3.59 MIL/MM3 Hemoglobin 9.5 GM/DL Hematocrit 29.0 % Mean Corpuscular Volume 80.8 FL Mean Corpuscular Hemoglobin 26.4 PG Mean Corpuscular Hemoglobin 32.7 % Concent Red Cell Distribution Width 24.2 % Platelet Count 550 TH/MM3 Mean Platelet Volume 7.1 FL Neutrophils (%) (Auto) 87.7 % Lymphocytes (%) (Auto) 6.4 % Monocytes (%) (Auto) 4.2 % Eosinophils (%) (Auto) 1.3 % Basophils (%) (Auto) 0.4 % Neutrophils # (Auto) 21.6 TH/MM3 Lymphocytes # (Auto) 1.6 TH/MM3 Monocytes # (Auto) 1.0 TH/MM3 Eosinophils # (Auto) 0.3 TH/MM3 Basophils # (Auto) 0.1 TH/MM3 CBC Comment DIFF FINAL Differential Comment Sodium Level 137 MEQ/L Potassium Level 4.1 MEQ/L Chloride Level 103 MEQ/L Carbon Dioxide Level 22.4 MEQ/L Anion Gap 12 MEQ/L Blood Urea Nitrogen 25 MG/DL Creatinine 1.55 MG/DL Estimat Glomerular Filtration 39 ML/MIN Rate Random Glucose 141 MG/DL Calcium Level 8.5 MG/DL Magnesium Level 1.9 MG/DL Lipase 326 U/L Culture Results Microbiology Date/Time Procedure Status Source Growth 03/07/17 17:21 Urine Culture - Final Complete Urine Random Urine 50-100,000 CFU/ML MIXED DINORAH... Administered Medications Medications (Trade) Dose Ordered Sig/Kirill Route PRN Reason Start Time Stop Time Status Last Admin Dose Admin Acetaminophen/ Hydrocodone Bitart (Meigs 5-325 Mg) 1 tab Q4H PRN PO PAIN 1-10 03/07/17 20:00 03/10/17 07:45 Metoprolol Tartrate (Lopressor) 25 mg BID PO 03/07/17 21:00 03/10/17 07:45 Nifedipine (Procardia Xl) 60 mg DAILY PO 03/08/17 09:00 03/10/17 07:45 Amylase/Lipase/ Protease (Creon 12-38-60) 1 cap TIDPC PO 03/08/17 09:30 03/10/17 07:45 Pantoprazole Sodium 40 mg 40 mg Q24H IV PUSH 03/07/17 21:00 03/09/17 20:25 Ceftriaxone Sodium 1000 mg/ Sodium Chloride 100 ml @ 200 mls/hr Q24H IV 03/08/17 18:00 03/09/17 18:53 Sodium Chloride (1/2 NS 1000 ml Inj) 1,000 ml @ 75 mls/hr [id number] IV 03/07/17 21:23 03/10/17 02:43 Sodium Chloride (NS Flush) 2 ml BID IV FLUSH 03/08/17 09:00 03/08/17 21:42 Ondansetron HCl (Zofran Inj) 4 mg Q6H PRN IVP NAUSEA OR VOMITING 03/07/17 21:30 03/10/17 06:23 Hydromorphone HCl (Dilaudid Pf Inj) 0.5 mg Q8H PRN IV pain 5-10 if unable to take po 03/07/17 21:30 03/08/17 11:12 Objective Remarks GENERAL: Well-nourished, well-developed patient. Weak. SKIN: Warm and dry. HEAD: Normocephalic. EYES: No scleral icterus. No injection or drainage. NECK: Supple, trachea midline. No JVD or lymphadenopathy. LYMPHATIC: No adenopathy. CARDIOVASCULAR: Regular rate and rhythm without murmurs. RESPIRATORY: Breath sounds equal bilaterally. No accessory muscle use. GASTROINTESTINAL:SHYAM tenderness, +BS. EXTREMITIES: No cyanosis, or edema. MUSCULOSKELETAL: Adequate muscle tone. NEUROLOGICAL: No obvious focal deficit. Awake, alert, and oriented x3. PSYCHIATRIC: Appropriate mood and affect; insight and judgment normal. Assessment/Plan Assessment 1. Anemia which appeared to be chronic. She had upper endoscopy December 2016 which showed gastritis, duodenitis but no active bleeding. Colonoscopy September 2015 also did not show any active bleeding. Her last iron study in January did not show clear evidence of iron deficiency. I think her anemia is likely multifactorial due to chronic kidney disease, chronic inflammatory process with recurrent pancreatitis. She just had transfusion and it is difficult to interpret her iron studies. 03/10 Vit B12 and folate normal. Iron study difficult to interpret due to transfusion. ESR/CRp elevated. 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 2. Leukocytosis which also appeared to be chronic. She did have two normal white blood cell count in December but most of her white blood cell counts have been elevated since last year. 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 However I am going to review her peripheral smear and check a ABIMBOLA-2 mutation to rule out chronic myeloproliferative disorder. 03/10 ESR/CRp elevated suggesting leukemoid reaction. JAK2 pending. 3. Thrombocytosis which has been going on and off. 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 4. Recurrent pancreatitis. She has had extensive GI workup in the past. GI is following at this time. 5. Urinary tract infection on antibiotic. Plan Plan: 1. Pathology to review a peripheral smear. 2. ABIMBOLA-2 mutation pending. 3. Agree with transfusion as needed to keep hemoglobin above 7. 4. Consider giving her Epogen if workup is unremarkable. 5. Check flowcytometry and Bcr/ABl. Eliazar Critsina MD Mar 10, 2017 08:05
[2017-03-10 12:00] VITALS: BP 110/63; PULSE 110; RESP 18; TEMP 98.3; O2SAT 95
--- NOTE | 2017-03-10 12:54 | HHI.PR ---
Subjective Remarks Pt reports that her abdominal pain is feeling better today She is tolerating clear liquids Objective Vitals Vital Signs Date Time Temp Pulse Resp B/P Pulse Ox O2 Delivery O2 Flow Rate FiO2 03/10/17 08:00 93 Room Air 03/10/17 08:00 97.5 103 18 102/52 96 03/09/17 23:45 97.4 95 17 123/64 97 03/09/17 20:00 100 Room Air 03/09/17 20:00 97.0 106 16 117/66 03/09/17 16:30 96.1 98 16 105/56 98 03/09/17 03/09/17 03/10/17 15:00 23:00 07:00 Intake Total 480 ml 1396 ml 1228 ml Balance 480 ml 1396 ml 1228 ml Intake Oral 480 ml 480 ml 240 ml IV Total 499 ml 559 ml Tube Feeding 417 ml 429 ml # Voids 4 2 2 # Bowel Movements 1 0 0 Result Diagram: 03/10/17 0547 03/10/17 0547 Other Results Laboratory Tests Test 03/09/17 03/09/17 03/10/17 05:43 16:20 05:47 White Blood Count 23.3 TH/MM3 24.7 TH/MM3 Red Blood Count 3.68 MIL/MM3 3.59 MIL/MM3 Hemoglobin 9.7 GM/DL 9.5 GM/DL Hematocrit 29.5 % 29.0 % Mean Corpuscular Volume 80.2 FL 80.8 FL Mean Corpuscular Hemoglobin 26.5 PG 26.4 PG Mean Corpuscular Hemoglobin 33.0 % 32.7 % Concent Red Cell Distribution Width 23.7 % 24.2 % Platelet Count 564 TH/MM3 550 TH/MM3 Mean Platelet Volume 6.8 FL 7.1 FL Neutrophils (%) (Auto) 85.5 % 87.7 % Lymphocytes (%) (Auto) 7.9 % 6.4 % Monocytes (%) (Auto) 4.5 % 4.2 % Eosinophils (%) (Auto) 1.2 % 1.3 % Basophils (%) (Auto) 0.9 % 0.4 % Neutrophils # (Auto) 19.9 TH/MM3 21.6 TH/MM3 Lymphocytes # (Auto) 1.9 TH/MM3 1.6 TH/MM3 Monocytes # (Auto) 1.0 TH/MM3 1.0 TH/MM3 Eosinophils # (Auto) 0.3 TH/MM3 0.3 TH/MM3 Basophils # (Auto) 0.2 TH/MM3 0.1 TH/MM3 CBC Comment DIFF FINAL DIFF FINAL Differential Comment Sodium Level 139 MEQ/L 137 MEQ/L Potassium Level 4.1 MEQ/L 4.1 MEQ/L Chloride Level 105 MEQ/L 103 MEQ/L Carbon Dioxide Level 22.2 MEQ/L 22.4 MEQ/L Anion Gap 12 MEQ/L 12 MEQ/L Blood Urea Nitrogen 30 MG/DL 25 MG/DL Creatinine 1.90 MG/DL 1.55 MG/DL Estimat Glomerular Filtration 31 ML/MIN 39 ML/MIN Rate Random Glucose 147 MG/DL 141 MG/DL Calcium Level 8.4 MG/DL 8.5 MG/DL Magnesium Level 2.1 MG/DL 1.9 MG/DL Blood Smear Pathologist Review Erythrocyte Sedimentation Rate GREATER THAN 140 mm/hr Iron Level 15 MCG/DL Total Iron Binding Capacity 91 MCG/DL Percent Iron Saturation 16.5 % Ferritin 943 NG/ML Lactate Dehydrogenase 111 U/L C-Reactive Protein 17.00 MG/DL Vitamin B12 Level 1287 PG/ML Folate 4.5 NG/ML Lipase 326 U/L Imaging Last 24 hours Impressions Chest X-Ray 03/07/17 0000 Signed Impressions: Service Date/Time: Tuesday, March 07, 2017 16:35 - CONCLUSION: No acute cardiopulmonary disease. Stephan Crawford MD Objective Remarks General: NAD, AAOx3 Chest: CTA Cardiac: Regular Abd: +BS, soft ND/NT Ext: No edema A/P Problem List: (1) Anemia Status: Acute Plan: - comgmt with GI and Hematology - Pt has prior h/o iron deficiency anemia - last Colonoscopy [address] Lino, pathology (10/04/15) --> adenomatous polyp - last EGD 02/12/[address] Ortega - gastric ulcer. Pathology: predominantly necroinflammatory exudate c/w ulceration with rare detached fragments of benign gastric mucosa - Pt has seen Hematology in the past, Dr. Bebeto Madsen, last visit 02/10/16 - Dr. Madsen felt pt's anemia was multifactorial d/t CKD & intermittent GIB with iron deficiency - Hematology has evaluated the pt and feel that most likely her anemia is related to chronic inflammatory disease and CKD - Peripheral smear is pending - JAK2 is pending. - pt transfused 3 units PRBCs on 03/08 - Hgb 7.1 (03/07) - Hgb 9.7 (03/09) - Hgb 9.5 (03/10) - IV Protonix - GI following and planning for EGD/Colonoscopy once pt able to tolerate bowel prep, will discuss with GI possibly prepping via the J-tube today for procedures tomorrow. - Supportive care (2) Chronic pancreatitis Status: Chronic Plan: - continue creon - tube feeding G/J tube (3) UTI (urinary tract infection) Status: Acute Plan: - abnormal UA - Pt started on Rocephin upon admission - Culture negative, indicating probable contaminants - Stop the Rocephin (4) HTN (hypertension) Status: Chronic Plan: - metoprolol, procardia XL Assessment and Plan Patient examined. Assessment and plan formulated with Guadalupe Monson PA-C. I agree with the above. Problem Qualifiers (1) Anemia: (2) Chronic pancreatitis: Qualified Code: K86.1 - Chronic pancreatitis, unspecified pancreatitis type (3) UTI (urinary tract infection): Qualified Code: N30.00 - Acute cystitis without hematuria (4) HTN (hypertension): Qualified Code: I10 - Essential hypertension Guadalupe Monson Mar 10, 2017 12:54 Alexander Eddy DO March 19, 2017 13:47
[2017-03-10 15:45] VITALS: BP 114/62; PULSE 103; RESP 18; TEMP 97.4; O2SAT 97
[2017-03-10] MEDS ORDERED: PEG (High)/E-LYTE SOLN 4000 ML BTL PO ONE (16:00)
[2017-03-10 20:15] VITALS: BP 105/68; PULSE 110; RESP 17; TEMP 97; O2SAT 97
[2017-03-10] MEDS: PANTOPRAZOLE SODIUM 40 MG VIAL IV PUSH SCH (20:56)
--- NOTE | 2017-03-10 23:18 | HHI.GIFU ---
Subjective Remarks Comfortable in bed no active bleeding willing to proceed with endoscopy Objective Vitals I&O Vital Signs Date Time Temp Pulse Resp B/P Pulse Ox O2 Delivery O2 Flow Rate FiO2 03/10/17 20:15 97.0 110 17 105/68 97 03/10/17 20:00 97 Room Air 03/10/17 15:45 97.4 103 18 114/62 97 03/10/17 12:00 98.3 110 18 110/63 95 03/10/17 08:00 93 Room Air 03/10/17 08:00 97.5 103 18 102/52 96 03/09/17 23:45 97.4 95 17 123/64 97 I/O 03/09/17 03/09/17 03/09/17 03/10/17 03/10/17 03/10/17 07:00 15:00 23:00 07:00 15:00 23:00 Intake Total 1035 ml 480 ml 1396 ml 1228 ml 1100 ml 1189 ml Balance 1035 ml 480 ml 1396 ml 1228 ml 1100 ml 1189 ml Intake Oral 120 ml 480 ml 480 ml 240 ml 1100 ml 720 ml IV Total 575 ml 499 ml 559 ml 469 ml Tube Feeding 340 ml 417 ml 429 ml # Voids 1 4 2 2 3 # Bowel Movements 0 1 0 0 0 Laboratory Laboratory Tests Test 03/10/17 05:47 White Blood Count 24.7 Red Blood Count 3.59 Hemoglobin 9.5 Hematocrit 29.0 Mean Corpuscular Volume 80.8 Mean Corpuscular Hemoglobin 26.4 Mean Corpuscular Hemoglobin 32.7 Concent Red Cell Distribution Width 24.2 Platelet Count 550 Mean Platelet Volume 7.1 Neutrophils (%) (Auto) 87.7 Lymphocytes (%) (Auto) 6.4 Monocytes (%) (Auto) 4.2 Eosinophils (%) (Auto) 1.3 Basophils (%) (Auto) 0.4 Neutrophils # (Auto) 21.6 Lymphocytes # (Auto) 1.6 Monocytes # (Auto) 1.0 Eosinophils # (Auto) 0.3 Basophils # (Auto) 0.1 CBC Comment DIFF FINAL Differential Comment Sodium Level 137 Potassium Level 4.1 Chloride Level 103 Carbon Dioxide Level 22.4 Anion Gap 12 Blood Urea Nitrogen 25 Creatinine 1.55 Estimat Glomerular Filtration 39 Rate Random Glucose 141 Calcium Level 8.5 Magnesium Level 1.9 Lipase 326 Date/Time Procedure Status Source Growth 03/07/17 17:21 Urine Culture - Final Complete Urine Random Urine 50-100,000 CFU/ML MIXED DINORAH... Physical Exam HEENT: Normocephalic; atraumatic; no jaundice. CHEST: CTA CARDIAC: RRR ABDOMEN: Soft, nondistended, epigastric/RUQ/LUQ tenderness; no hepatosplenomegaly; bowel sounds are present in all four quadrants. EXTREMITIES: No clubbing, cyanosis, or edema. SKIN: Normal; no rash; no jaundice. ASSET AVAILABILITY LEADER: No focal deficits; alert and oriented times three Assessment and Plan Plan ASSESSMENT: - Abdominal pain, NV. She states that she has had severe epigastric pain that is sharp and constant, radiating to LUQ and RUQ since she was discharged. She takes lortab at home for this, but states that it does not help. She has associated nausea without vomiting. PPI. Creon. Zofran. Clear liquids. Jevity 1.5 at 45cc/hr- post pylori feedings- this was turned off last night secondary to nausea/pain. She is willing to try this again today. - Anemia. H/H 7.2/22.7. Of note, she has been in the 7-8 range for several months. EGD/Colonoscopy (10/04/15) and this revealed an ulcer at the GE junction, thick gastric fold at pre-pyloric area, mild gastritis, duodenal inflammation in the bulb and second portion of the duodenum, small polyp in the ascending colon, and moderate internal hemorrhoids. Pathology revealed gastric antral mucosal biopsies with mild chronic gastritis exhibiting histopathologic features consistent with chemical gastropathy as may be seen with bile reflux, nonsteroidal anti-inflammatory drugs or other drug induced disease negative for intestinal metaplasia and dysplasia, gricelda stain negative for helicobacter , gastroesophageal mucosal biopsy with inflammatory changes consistent with reflux negative for intestinal metaplasia and dysplasia, colonic mucosa with adenomatous polyp. EGD (12/16/16)---> small hiatal hernia, antral nodule. Pathology reactive/chemical gastropathy. She does have chronic renal disease and this is likely contributing to her anemia- there does not seem to be any obvious active blood loss. Will plan for colonoscopy prior to d/c, but patient is unable to take bowel prep at this time. S/P 3 units PRBC. H/H 9.7/29.5 - Leukocytosis. 23.0. Afebrile. - Chronic pancreatitis, Idiopathic. S/P extensive workup for her recurrent pancreatitis with MRCP, ERCP with sphincterotomy for suspected sphincter dysfunction vs. microlithiasis, Ig4 level, EUS, Triglycerides, and tertiary evaluation. She was evaluated for anemia with She last had an ERCP/EUS (02/12/16) and this revealed unremarkable EUS of the pancrease, a stent was noted in the CBD but otherwise was normal, ampulla with prior sphincterotomy, botherwise normal, distal CBD stricture, smooth benign, this was dilated with CRE balloon 10mm post dilatation still significant narrowing and as such a full cover 10fr 6 cm wall stent was placed, positioning satisfactor, prior to stent placement a 15 mm balloon was used to clear the bile duct and no stones were noted, normal intrahepatic biliary tree- not dialted, gallbladder not seen, normal esophagus, hiatal hernia, large antral ulcer, clean based, GJ tube, this was dislodged and at the end was repositioned into the duodenum, normal duodenum. - Acute on chronic renal disease. Cerat 1.90, GFR 31. This has actually been improving. PLAN: -We will proceed with an EGD and a colonoscopy tomorrow to further assess the anemia - PPI - Creon - Zofran prn - Monitor HH - Transfuse as necessary - Supportive care Gregg Ortega MD Mar 10, 2017 23:18
[2017-03-11] MEDS: ACETAMINOPHEN/HYDROcodone 325 MG/5 MG TAB PO PRN ×6 (00:06→21:32)
[2017-03-11 00:15] VITALS: BP 117/61; PULSE 113; RESP 17; TEMP 96.9; O2SAT 98
[2017-03-11] MEDS ORDERED: INSULIN HUMAN REGULAR 1,000 UNITS/10 ML VIAL SQ PRN (04:30)
[2017-03-11] MEDS ORDERED: POVIDONE IODINE 5% (ANTISEPSIS KIT) 4 APPLICATIONS EACH NARE PRN (04:30)
[2017-03-11] MEDS ORDERED: CHLORHEXIDINE GLUCONATE 2 % 1 PACK (2 CLOTHS) TOPICAL PRN (04:30)
[2017-03-11] MEDS ORDERED: LACTATED RINGER'S 1000 ML IV PRN (04:30)
[2017-03-11] MEDS ORDERED: SODIUM CHLORID 0.9% 500 ML IV PRN (04:30)
[2017-03-11] MEDS: SODIUM CHLOR 0.45% 1000 ML INJ 1,000 ML IV SCH (05:23)
[2017-03-11 05:44] LABS: AUTOMATED NEUTROPHIL # 17.5 TH/MM3 (1.8-7.7); BASOPHIL # 0.1 TH/MM3 (0-0.2); BASOPHIL % 0.7 % (0.0-2.0); EOSINOPHIL # 0.3 TH/MM3 (0-0.4); EOSINOPHIL % 1.6 % (0.0-4.0); HEMATOCRIT 30.1 % (35.0-46.0); HEMO FLAGS DIFF FINAL; LYMPH % 5.1 % (9.0-44.0); MEAN CELL VOLUME 80.2 FL (80.0-100.0); MEAN CORPUSCULAR HEMOGLOBIN 26.1 PG (27.0-34.0); MEAN CORPUSCULAR HGB CONC 32.5 % (32.0-36.0); MONO % 4.4 % (0.0-8.0); NEUT % 88.2 % (16.0-70.0); PLATELET COUNT 522 TH/MM3 (150-450); RED BLOOD COUNT 3.75 MIL/MM3 (4.00-5.30); RED CELL DISTRIBUTION WIDTH 24.6 % (11.6-17.2); WHITE BLOOD COUNT 19.8 TH/MM3 (4.0-11.0)
[2017-03-11 06:09] LABS: POTASSIUM 4.6 MEQ/L (3.5-5.1)
[2017-03-11] MEDS: ONDANSETRON HCL 4 MG/2 ML VIAL IVP PRN ×2 (06:16→19:41)
[2017-03-11 08:00] VITALS: BP 118/66; PULSE 118; RESP 18; TEMP 95.6; O2SAT 96
[2017-03-11] MEDS: LIPASE/PROTEASE/AMYLASE (12,000/38,000/60,000) CAP PO SCH ×3 (08:27→17:10)
[2017-03-11] MEDS: SODIUM CHLORIDE 0.9% FLUSH 10 ML FLUSH IV FLUSH SCH ×2 (08:28→21:00)
[2017-03-11] MEDS: NIFEdipine 60 MG SUSTAINED RELEASE TAB PO SCH (08:28)
[2017-03-11] MEDS: METOPROLOL TARTRATE 25 MG TAB PO SCH ×2 (08:29→23:07)
[2017-03-11 10:00] VITALS: BP 117/61; PULSE 113; RESP 17; TEMP 96.9; O2SAT 98
[2017-03-11] MEDS ORDERED: PROPOFOL 200 MG/20 ML AMP IV ONE (10:13)
--- NOTE | 2017-03-11 10:40 | PD.PROCEDR ---
GI Procedure REFERRING PHYSICIAN Dr. Eddy PROCEDURE PERFORMED EGD with biopsy followed by colonoscopy with biopsy INDICATION FOR PROCEDURE Anemia PROCEDURE: The procedure, risks and benefits were discussed with Ms. Larsen and informed consent was obtained. Anesthesia sedated her with Diprivan. She was placed in the left lateral decubitus position. EGD: The Pentax videoscope was introduced through the oropharynx and advanced to the second portion of the duodenum under direct visualization. Retroflexion was performed in the stomach. FINDINGS: Esophagus this was normal Stomach there was a large hiatal hernia there was noted a GJ tube in good position there was a large antral nodule of unclear significance this was biopsied this may require endoscopic ultrasound the rest of the mucosa was unremarkable The duodenum this was normal I was careful not to pull out the J-tube Colonoscopy: The Pentax videoscope was introduced through the rectum and advanced to cecum where the ileocecal valve and appendiceal orifice were identified. Retroflexion was performed in the rectum. Colonic prep was fair FINDINGS: Colonic withdrawal time greater than 6 minutes as the scope was slowly withdrawn colonic mucosa was carefully inspected the patient was noted to have a small diminutive ascending colon polyp this was excised using cold biopsy forceps otherwise colonic examination was unremarkable so as retroflexion in rectal examination ESTIMATED BLOOD LOSS: None SPECIMENS REMOVED: Antral and ascending colon biopsies COMPLICATIONS: None IMPRESSION: Large hiatal hernia Antral nodule/mass Colon polyp PLAN: Await biopsy Continue with current supportive measures Optimize nutrition Consider endoscopic ultrasound for the antral nodule Colonoscopy in 3 years Gregg Ortega MD Mar 11, 2017 10:40
[2017-03-11 12:00] VITALS: BP 139/72; PULSE 101; RESP 18; TEMP 96.6; O2SAT 100
--- NOTE | 2017-03-11 13:02 | HHI.PR ---
Subjective Remarks No new complaints. Pt reports that she is comfortable. No PO intake. Pt receiving her tube feeds. Objective Vitals Vital Signs Date Time Temp Pulse Resp B/P Pulse Ox O2 Delivery O2 Flow Rate FiO2 03/11/17 10:46 98 16 102/53 99 03/11/17 10:39 98 16 106/54 100 03/11/17 10:34 98.8 99 14 106/59 99 03/11/17 10:00 96.9 113 17 117/61 98 03/11/17 08:00 95.6 118 18 118/66 96 03/11/17 00:15 96.9 113 17 117/61 98 03/10/17 20:15 97.0 110 17 105/68 97 03/10/17 20:00 97 Room Air 03/10/17 15:45 97.4 103 18 114/62 97 03/10/17 03/10/17 03/11/17 15:00 23:00 07:00 Intake Total 1100 ml 1429 ml 2987 ml Balance 1100 ml 1429 ml 2987 ml Intake Oral 1100 ml 240 ml 0 ml IV Total 469 ml 587 ml Tube Feeding 720 ml 2400 ml # Voids 3 1 # Bowel Movements 0 2 Result Diagram: 03/11/17 0517 03/11/17 0517 Imaging Last 24 hours Impressions Chest X-Ray 03/07/17 0000 Signed Impressions: Service Date/Time: Tuesday, March 07, 2017 16:35 - CONCLUSION: No acute cardiopulmonary disease. Stephan Crawford MD Objective Remarks General: NAD, AAOx3 Chest: CTA Cardiac: Regular Abd: +BS, soft ND/NT Ext: No edema A/P Problem List: (1) Anemia Status: Acute Plan: - comgmt with GI and Hematology - Pt has prior h/o iron deficiency anemia - last Colonoscopy [address] Lino, pathology (10/04/15) --> adenomatous polyp - last EGD 02/12/[address] Ortega - gastric ulcer. Pathology: predominantly necroinflammatory exudate c/w ulceration with rare detached fragments of benign gastric mucosa - Pt has seen Hematology in the past, Dr. Bebeto Madsen, last visit 02/10/16 - Dr. Madsen felt pt's anemia was multifactorial d/t CKD & intermittent GIB with iron deficiency - Hematology has evaluated the pt and feel that most likely her anemia is related to chronic inflammatory disease and CKD - Peripheral smear is pending - JAK2 is pending. - pt transfused 3 units PRBCs on 03/08 - Hgb 7.1 (03/07) - Hgb 9.7 (03/09) - Hgb 9.5 (03/10) - IV Protonix - EGD/Colonoscopy ( 03/11/17) - large hiatal hernia - antral nodule/mass --> endoscopic US in the future - colon polyp, bx results pending - pt is currently pain free - anticipate d/c to home in 1-2 days (2) Chronic pancreatitis Status: Chronic Plan: - continue creon - tube feeding G/J tube (3) UTI (urinary tract infection) Status: Acute Plan: - abnormal UA - Pt started on Rocephin upon admission - Culture negative, indicating probable contaminants - Stop the Rocephin (4) HTN (hypertension) Status: Chronic Plan: - metoprolol, procardia XL Problem Qualifiers (1) Anemia: (2) Chronic pancreatitis: Qualified Code: K86.1 - Chronic pancreatitis, unspecified pancreatitis type (3) UTI (urinary tract infection): Qualified Code: N30.00 - Acute cystitis without hematuria (4) HTN (hypertension): Qualified Code: I10 - Essential hypertension Alexander Eddy DO Mar 11, 2017 13:02
[2017-03-11 16:00] VITALS: BP 128/65; PULSE 110; RESP 18; TEMP 96.5; O2SAT 98
--- NOTE | 2017-03-11 17:26 | PD.ONC.PN ---
Subjective Subjective Remarks Still has abdominal pain. No bleeding reported. Objective Data Date Time Temp Pulse Resp B/P Pulse Ox O2 Delivery O2 Flow Rate FiO2 03/11/17 10:46 98 16 102/53 99 03/11/17 10:39 98 16 106/54 100 03/11/17 10:34 98.8 99 14 106/59 99 03/11/17 10:00 96.9 113 17 117/61 98 03/11/17 08:00 95.6 118 18 118/66 96 03/11/17 00:15 96.9 113 17 117/61 98 03/10/17 20:15 97.0 110 17 105/68 97 03/10/17 20:00 97 Room Air 03/11/17 03/11/17 03/11/17 07:00 15:00 23:00 Intake Total 2987 ml 150 ml Balance 2987 ml 150 ml Result Diagram: 03/11/1717 03/11/17 0517 Laboratory Results Laboratory Tests Test 03/11/17 05:17 White Blood Count 19.8 TH/MM3 Red Blood Count 3.75 MIL/MM3 Hemoglobin 9.8 GM/DL Hematocrit 30.1 % Mean Corpuscular Volume 80.2 FL Mean Corpuscular Hemoglobin 26.1 PG Mean Corpuscular Hemoglobin 32.5 % Concent Red Cell Distribution Width 24.6 % Platelet Count 522 TH/MM3 Mean Platelet Volume 6.8 FL Neutrophils (%) (Auto) 88.2 % Lymphocytes (%) (Auto) 5.1 % Monocytes (%) (Auto) 4.4 % Eosinophils (%) (Auto) 1.6 % Basophils (%) (Auto) 0.7 % Neutrophils # (Auto) 17.5 TH/MM3 Lymphocytes # (Auto) 1.0 TH/MM3 Monocytes # (Auto) 0.9 TH/MM3 Eosinophils # (Auto) 0.3 TH/MM3 Basophils # (Auto) 0.1 TH/MM3 CBC Comment DIFF FINAL Differential Comment Sodium Level 142 MEQ/L Potassium Level 4.6 MEQ/L Chloride Level 106 MEQ/L Carbon Dioxide Level 24.0 MEQ/L Anion Gap 12 MEQ/L Blood Urea Nitrogen 20 MG/DL Creatinine 1.36 MG/DL Estimat Glomerular Filtration 45 ML/MIN Rate Random Glucose 99 MG/DL Calcium Level 9.0 MG/DL Magnesium Level 2.0 MG/DL Administered Medications Medications (Trade) Dose Ordered Sig/Kirill Route PRN Reason Start Time Stop Time Status Last Admin Dose Admin Acetaminophen/ Hydrocodone Bitart (Schwertner 5-325 Mg) 1 tab Q4H PRN PO PAIN 1-10 03/07/17 20:00 03/11/17 17:10 Metoprolol Tartrate (Lopressor) 25 mg BID PO 03/07/17 21:00 03/11/17 08:29 Nifedipine (Procardia Xl) 60 mg DAILY PO 03/08/17 09:00 03/11/17 08:28 Amylase/Lipase/ Protease (Creon 12-38-60) 1 cap TIDPC PO 03/08/17 09:30 03/11/17 17:10 Pantoprazole Sodium (Protonix Inj) 40 mg Q24H IV PUSH 03/07/17 21:00 03/10/17 20:56 Sodium Chloride (NS Flush) 2 ml BID IV FLUSH 03/08/17 09:00 03/11/17 08:28 Ondansetron HCl (Zofran Inj) 4 mg Q6H PRN IVP NAUSEA OR VOMITING 03/07/17 21:30 03/11/17 06:16 Objective Remarks GENERAL: Well-nourished, well-developed patient. Appear chronically ill. SKIN: Warm and dry. HEAD: Normocephalic. EYES: No scleral icterus. No injection or drainage. NECK: Supple, trachea midline. No JVD or lymphadenopathy. LYMPHATIC: No adenopathy. CARDIOVASCULAR: Regular rate and rhythm without murmurs. RESPIRATORY: Breath sounds equal bilaterally. No accessory muscle use. GASTROINTESTINAL: Abdomen soft, SHYAM tenderness. EXTREMITIES: No cyanosis, or edema. MUSCULOSKELETAL: Adequate muscle tone. NEUROLOGICAL: No obvious focal deficit. Awake, alert, and oriented x3. PSYCHIATRIC: Appropriate mood and affect; insight and judgment normal. Assessment/Plan Assessment 1. Anemia which appeared to be chronic. She had upper endoscopy December 2016 which showed gastritis, duodenitis but no active bleeding. Colonoscopy September 2015 also did not show any active bleeding. Her last iron study in January did not show clear evidence of iron deficiency. I think her anemia is likely multifactorial due to chronic kidney disease, chronic inflammatory process with recurrent pancreatitis. She just had transfusion and it is difficult to interpret her iron studies. 03/10 Vit B12 and folate normal. Iron study difficult to interpret due to transfusion. ESR/CRp elevated. 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 03/11 Peripheral smear showed hypochromia but iron study difficult to interpret due to recent transfusion and active inflammatory process. Hgb stable. 2. Leukocytosis which also appeared to be chronic. She did have two normal white blood cell count in December but most of her white blood cell counts have been elevated since last year. 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 However I am going to review her peripheral smear and check a ABIMBOLA-2 mutation to rule out chronic myeloproliferative disorder. 03/10 ESR/CRp elevated suggesting leukemoid reaction. JAK2 pending. 03/11 WBC trended slightly lower. Flowcytometry showed no abnormal immunophenotype. JAK2 and BCR/ABL pending. 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 3. Thrombocytosis which has been going on and off. 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 4. Recurrent pancreatitis. She has had extensive GI workup in the past. GI is following at this time. 5. Urinary tract infection on antibiotic. Plan Plan: 1. monitor CBC 2. ABIMBOLA-2 mutation and BCR/ABL FISH pending. 3. Agree with transfusion as needed to keep hemoglobin above 7. 4. Consider giving her Epogen if workup is unremarkable. Eliazar Cristina MD Mar 11, 2017 17:26
[2017-03-11 20:15] VITALS: BP 107/58; PULSE 115; RESP 17; TEMP 96.7; O2SAT 98
[2017-03-11] MEDS: PANTOPRAZOLE SODIUM 40 MG VIAL IV PUSH SCH (21:32)
[2017-03-12 00:10] VITALS: BP 119/61; PULSE 105; RESP 17; TEMP 97.3; O2SAT 98
[2017-03-12] MEDS: ACETAMINOPHEN/HYDROcodone 325 MG/5 MG TAB PO PRN ×5 (01:23→20:13)
[2017-03-12 04:15] VITALS: BP 113/59; PULSE 104; RESP 17; TEMP 99.7; O2SAT 99
[2017-03-12 06:05] LABS: HEMATOCRIT 30.1 % (35.0-46.0); MEAN CORPUSCULAR HEMOGLOBIN 25.4 PG (27.0-34.0); MEAN CORPUSCULAR HGB CONC 31.4 % (32.0-36.0); PLATELET COUNT 569 TH/MM3 (150-450); RED BLOOD COUNT 3.72 MIL/MM3 (4.00-5.30); REVIEW FLAG FINAL; WHITE BLOOD COUNT 23.6 TH/MM3 (4.0-11.0)
[2017-03-12] MEDS: LIPASE/PROTEASE/AMYLASE (12,000/38,000/60,000) CAP PO SCH ×3 (07:49→18:33)
[2017-03-12] MEDS: METOPROLOL TARTRATE 25 MG TAB PO SCH ×2 (07:49→20:12)
[2017-03-12] MEDS: NIFEdipine 60 MG SUSTAINED RELEASE TAB PO SCH (07:49)
[2017-03-12] MEDS: SODIUM CHLORIDE 0.9% FLUSH 10 ML FLUSH IV FLUSH SCH ×2 (07:51→20:13)
[2017-03-12 08:00] VITALS: BP 122/61; PULSE 114; RESP 18; TEMP 96; O2SAT 97
--- NOTE | 2017-03-12 10:48 | PD.ONC.PN ---
Subjective Subjective Remarks Afebrile overnight. Patient resting comfortably without complaint. No overnight events. Objective Data Date Time Temp Pulse Resp B/P Pulse Ox O2 Delivery O2 Flow Rate FiO2 03/12/17 08:00 96.0 114 18 122/61 97 03/12/17 04:15 99.7 104 17 113/59 99 03/12/17 00:10 97.3 105 17 119/61 98 03/11/17 20:15 96.7 115 17 107/58 98 03/11/17 16:00 96.5 110 18 128/65 98 03/11/17 12:00 96.6 101 18 139/72 100 03/11/17 10:46 98 16 102/53 99 03/11/17 10:39 98 16 106/54 100 03/12/17 03/12/17 03/12/17 07:00 15:00 23:00 Intake Total 480 ml Balance 480 ml Result Diagram: 03/12/17 0542 03/11/17 0517 Laboratory Results Laboratory Tests Test 03/12/17 05:42 White Blood Count 23.6 TH/MM3 Red Blood Count 3.72 MIL/MM3 Hemoglobin 9.5 GM/DL Hematocrit 30.1 % Mean Corpuscular Volume 81.0 FL Mean Corpuscular Hemoglobin 25.4 PG Mean Corpuscular Hemoglobin 31.4 % Concent Red Cell Distribution Width 24.0 % Platelet Count 569 TH/MM3 Mean Platelet Volume 6.9 FL Administered Medications Medications (Trade) Dose Ordered Sig/Kirill Route PRN Reason Start Time Stop Time Status Last Admin Dose Admin Acetaminophen/ Hydrocodone Bitart ([place] 5-325 Mg) 1 tab Q4H PRN PO PAIN 1-10 03/07/17 20:00 03/12/17 09:06 Metoprolol Tartrate (Lopressor) 25 mg BID PO 03/07/17 21:00 03/12/17 07:49 Nifedipine (Procardia Xl) 60 mg DAILY PO 03/08/17 09:00 03/12/17 07:49 Amylase/Lipase/ Protease (Creon 12-38-60) 1 cap TIDPC PO 03/08/17 09:30 03/12/17 07:49 Pantoprazole Sodium (Protonix Inj) 40 mg Q24H IV PUSH 03/07/17 21:00 03/11/17 21:32 Sodium Chloride (NS Flush) 2 ml BID IV FLUSH 03/08/17 09:00 03/12/17 07:51 Ondansetron HCl (Zofran Inj) 4 mg Q6H PRN IVP NAUSEA OR VOMITING 03/07/17 21:30 03/11/17 19:41 Objective Remarks GENERAL: Elderly female, sitting up in bed in nad. SKIN: Warm and dry. HEAD: Normocephalic. EYES: No injection or drainage. NECK: Supple, trachea midline. CARDIOVASCULAR: Regular rate and rhythm RESPIRATORY: Breath sounds equal bilaterally. No accessory muscle use. GASTROINTESTINAL: Abdomen soft, non-tender, nondistended. EXTREMITIES: No cyanosis NEUROLOGICAL: No obvious focal deficit. Awake, alert, and oriented x3. Assessment/Plan Problem List: (1) Anemia Status: Acute Plan: -- upper endoscopy December 2016 showed gastritis, duodenitis but no active bleeding. --Colonoscopy September 2015 did not show any active bleeding. --last iron study in January did not show clear evidence of iron deficiency. --anemia is likely multifactorial due to chronic kidney disease, chronic inflammatory process with recurrent pancreatitis. 03/10 Vit B12 and folate normal. Iron study difficult to interpret due to transfusion. ESR/CRp elevated. 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 03/11 Peripheral smear showed hypochromia but iron study difficult to interpret due to recent transfusion and active inflammatory process. Hgb stable. 03/12: hgb stable at 9.5. continue to monitor (2) Leukocytosis Status: Acute Plan: --appears to be chronic. --had two normal white blood cell count in December but most of her white blood cell counts have been elevated since last year. --may be leukemoid reaction due to her pancreatitis. However I am going to review her peripheral smear and check a ABIMBOLA-2 mutation to rule out chronic myeloproliferative disorder. 03/10 ESR/CRp elevated suggesting leukemoid reaction. JAK2 pending. 03/11 WBC trended slightly lower. Flow cytometry showed no abnormal immunophenotype. JAK2 and BCR/ABL pending. 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 03/12 WBC trending up again. await JAK2 and BCR/ABL but this is likely a leukemoid reaction (3) Thrombocytosis Status: Acute Plan: --likely reactive thrombocytosis due to pancreatitis. Assessment 81y/o with h/o chronic pancreatitis admitted with abdominal pain. Hematology consulted for anemia, thrombocytosis and leukocytosis Plan 1. monitor CBC, transfuse to keep hgb>7 2. consider epogen if rest of w/u unremarkable 3. await JAK2, BCR/ABL Attending Statement The exam, history, and the medical decision-making described in the above note were completed with the assistance of the mid-level provider. I reviewed and agree with the findings presented. I attest that I had a [id number] encounter with the patient on the same day, and personally performed and documented my assessment and findings in the medical record. ABdominal pain slightly better. CBC relatively stable. Findings so far suggestive of reactive leukocytosis and thrombocytosis due to pancreatitis. JAK2 and BCR/ABL pending. Continue to monitor. Problem Qualifiers (1) Anemia: Clau Ruiz Mar 12, 2017 10:48 Eliazar Cristina MD Mar 12, 2017 16:49
--- NOTE | 2017-03-12 11:21 | HHI.FF ---
Face to Face Verification Diagnosis: (1) Pancreatitis, recurrent (2) Anemia (3) Abdominal pain Physical Therapy Order: Evaluate and Treat, Improve ambulation, Strength and gait training I have seen patient Park Larsen on 03/12/17. My clinical findings support the need for the requested home health care services because: Ltd mobility - disease progression Deconditioned w/ increased weakness Med compliance is questionable Limited ability to care for self Need for psychosocial assistance I certify that my clinical findings support that this patient is homebound because: Impaired cognitive ability/safety Unsafe to leave home unassisted Need for psychosocial assistance Unable to use public transportation Alexander Eddy DO Mar 12, 2017 11:21
--- NOTE | 2017-03-12 11:21 | HHI.PR ---
Subjective Remarks No new complaints. Pt is tolerating tube feeds. Pt is tolerating small amount of PO intake with liquid clears. No new complaints. Denies abdominal pain. Objective Vitals Vital Signs Date Time Temp Pulse Resp B/P Pulse Ox O2 Delivery O2 Flow Rate FiO2 03/12/17 08:00 96.0 114 18 122/61 97 03/12/17 04:15 99.7 104 17 113/59 99 03/12/17 00:10 97.3 105 17 119/61 98 03/11/17 20:15 96.7 115 17 107/58 98 03/11/17 16:00 96.5 110 18 128/65 98 03/11/17 12:00 96.6 101 18 139/72 100 03/11/17 03/11/17 03/12/17 15:00 23:00 07:00 Intake Total 150 ml 600 ml 480 ml Balance 150 ml 600 ml 480 ml Intake Oral 600 ml 120 ml IV Total 150 ml Tube Feeding 360 ml # Voids 3 1 # Bowel Movements 0 0 Result Diagram: 03/12/17 0542 03/11/17 0517 Imaging Last Impressions Chest X-Ray 03/07/17 0000 Signed Impressions: Service Date/Time: Tuesday, March 07, 2017 16:35 - CONCLUSION: No acute cardiopulmonary disease. Stephan Crawford MD Objective Remarks General: NAD, AAOx3 Chest: CTA Cardiac: Regular Abd: +BS, soft ND/NT Ext: No edema A/P Problem List: (1) Anemia Status: Acute Plan: - comgmt with GI and Hematology - Pt has prior h/o iron deficiency anemia - last Colonoscopy [address] Lino, pathology (10/04/15) --> adenomatous polyp - last EGD 02/12/[address] Ortega - gastric ulcer. Pathology: predominantly necroinflammatory exudate c/w ulceration with rare detached fragments of benign gastric mucosa - Pt has seen Hematology in the past, Dr. Bebeto Madsen, last visit 02/10/16 - Dr. Madsen felt pt's anemia was multifactorial d/t CKD & intermittent GIB with iron deficiency - Hematology has evaluated the pt and feel that most likely her anemia is related to chronic inflammatory disease and CKD - Peripheral smear is pending - JAK2 is pending. - pt transfused 3 units PRBCs on 03/08 - Hgb 7.1 (03/07) - Hgb 9.7 (03/09) - Hgb 9.5 (03/10) - PO Protonix - EGD/Colonoscopy ( 03/11/17) - large hiatal hernia - antral nodule/mass --> endoscopic US in the future - colon polyp, bx results pending - pt is currently pain free - anticipate d/c to home with [facility] 03/13/17 (2) Chronic pancreatitis Status: Chronic Plan: - continue creon - tube feeding G/J tube - request review of TF administration for adequate calories by Dietary (3) UTI (urinary tract infection) Status: Acute Plan: - abnormal UA - Pt started on Rocephin upon admission - Culture negative, indicating probable contaminants - Stopped the Rocephin (4) HTN (hypertension) Status: Chronic Plan: - metoprolol, procardia XL Problem Qualifiers (1) Anemia: (2) Chronic pancreatitis: Qualified Code: K86.1 - Chronic pancreatitis, unspecified pancreatitis type (3) UTI (urinary tract infection): Qualified Code: N30.00 - Acute cystitis without hematuria (4) HTN (hypertension): Qualified Code: I10 - Essential hypertension Alexander Eddy DO Mar 12, 2017 11:21
[2017-03-12 12:00] VITALS: BP 109/61; PULSE 108; RESP 18; TEMP 97.3; O2SAT 99
[2017-03-12] MEDS ORDERED: ACETAMINOPHEN/HYDROcodone 325 MG/5 MG TAB PO ONE (12:00)
[2017-03-12 16:00] VITALS: BP 112/60; PULSE 113; RESP 18; TEMP 98.8; O2SAT 97
[2017-03-12 20:00] VITALS: BP 117/58; PULSE 100; RESP 14; TEMP 99.4; O2SAT 98
[2017-03-12] MEDS: ONDANSETRON HCL 4 MG/2 ML VIAL IVP PRN (22:28)
[2017-03-13] VITALS: BP 115/59; PULSE 119; RESP 16; TEMP 99.6; O2SAT 99
[2017-03-13] MEDS: ACETAMINOPHEN/HYDROcodone 325 MG/5 MG TAB PO PRN ×5 (00:15→16:17)
[2017-03-13 04:00] VITALS: BP 121/57; PULSE 118; RESP 18; TEMP 98.4; O2SAT 100
[2017-03-13 07:20] VITALS: BP 127/60; PULSE 108; RESP 17; TEMP 96.9; O2SAT 98
[2017-03-13] MEDS: NIFEdipine 60 MG SUSTAINED RELEASE TAB PO SCH (08:34)
[2017-03-13] MEDS: METOPROLOL TARTRATE 25 MG TAB PO SCH (08:34)
[2017-03-13] MEDS: LIPASE/PROTEASE/AMYLASE (12,000/38,000/60,000) CAP PO SCH ×2 (08:34→12:12)
[2017-03-13] MEDS: SODIUM CHLORIDE 0.9% FLUSH 10 ML FLUSH IV FLUSH SCH (08:34)
[2017-03-13] MEDS ORDERED: PANTOPRAZOLE SOD 20 MG DELAYED RELEASE TAB PO SCH (09:00)
[2017-03-13 11:24] VITALS: BP 121/61; PULSE 106; RESP 17; TEMP 97.1; O2SAT 100
[2017-03-13 13:11] VITALS: RESP 16
--- NOTE | 2017-03-13 13:21 | HHI.FF ---
Face to Face Verification Diagnosis: (1) Leukocytosis (2) Pancreatitis, recurrent (3) HTN (hypertension) (4) Anemia Physical Therapy Order: Evaluate and Treat, Improve ambulation, Strength and gait training Home Health Nursing Order: Medical education Signs/symptoms of disease process Medication education-adverse effect Nursing assessment with vital signs Instructions: Jevity 1.5 continuous at 50ml/hour free water flushes 100ml via J-tube TID I have seen patient Park Larsen on 03/13/17. My clinical findings support the need for the requested home health care services because: Ltd mobility - disease progression Deconditioned w/ increased weakness Med compliance is questionable Limited ability to care for self Need for psychosocial assistance I certify that my clinical findings support that this patient is homebound because: Impaired cognitive ability/safety Unsafe to leave home unassisted Need for psychosocial assistance Unable to use public transportation Alexander Eddy DO Mar 13, 2017 13:21
--- NOTE | 2017-03-13 13:24 | HHI.DS ---
Discharge Summary Admission Date Mar 07, 2017 at 18:51 Discharge Date: Mar 13, 2017 Admitting Diagnosis pancreatitis, anemia, UTI (1) Anemia Diagnosis: Principal (2) Chronic pancreatitis Diagnosis: Principal (3) UTI (urinary tract infection) Diagnosis: Secondary (4) HTN (hypertension) Diagnosis: Secondary Consultants Dr. Gregg Ortega, Gastroenterology Dr. Eliazar Cristina, Hematology Brief History Patient is a 81 year old female with history of chronic pancreatitis with a GJ tube in place, who comes in complaining of epigastric pain and SOB. She says that this pain is different then her typical pancreatitis pain. She has been admitted several times in the past few months for chronic pancreatitis. She says today the pain is different and she was feeling very short of breath earlier today. She denies fever or chills. She denies any dizziness. Patient on lab work had decrease hgb at7 and will be transfused also has uti and was given rocephin. Patient with multiple admits for pancreatitis and has been to [facility] as well ,with hx cholecystectomy and sphincterotomy,patient with reactive leukocytosis with her pancreatitis. Had ERCP 11/30 with stent placement and G/J tube placed 11/30 then removed and had repeat ERCP 12/11/15 with exchange,J tube placed again 01/29 and was started on Jevity 1.5 45ml/hr. Patient also with renal failure in past with dehydration. Patient admitted for blood transfusion and GI evaluation. CBC/BMP: 03/12/17 0542 03/11/17 0517 Significant Findings Laboratory Tests Test 03/11/17 03/12/17 05:17 05:42 White Blood Count 19.8 TH/MM3 23.6 TH/MM3 (4.0-11.0) (4.0-11.0) Red Blood Count 3.75 MIL/MM3 3.72 MIL/MM3 (4.00-5.30) (4.00-5.30) Hemoglobin 9.8 GM/DL 9.5 GM/DL (11.6-15.3) (11.6-15.3) Hematocrit 30.1 % 30.1 % (35.0-46.0) (35.0-46.0) Mean Corpuscular Hemoglobin 26.1 PG 25.4 PG (27.0-34.0) (27.0-34.0) Red Cell Distribution Width 24.6 % 24.0 % (11.6-17.2) (11.6-17.2) Platelet Count 522 TH/MM3 569 TH/MM3 (150-450) (150-450) Mean Platelet Volume 6.8 FL 6.9 FL (7.0-11.0) (7.0-11.0) Neutrophils (%) (Auto) 88.2 % (16.0-70.0) Lymphocytes (%) (Auto) 5.1 % (9.0-44.0) Neutrophils # (Auto) 17.5 TH/MM3 (1.8-7.7) Blood Urea Nitrogen 20 MG/DL (7-18) Creatinine 1.36 MG/DL (0.50-1.00) Estimat Glomerular Filtration 45 ML/MIN (>89) Rate Mean Corpuscular Hemoglobin 31.4 % Concent (32.0-36.0) Imaging Last Impressions Chest X-Ray 03/07/17 0000 Signed Impressions: Service Date/Time: Tuesday, March 07, 2017 16:35 - CONCLUSION: No acute cardiopulmonary disease. Stephan Crawford MD PE at Discharge General: NAD, AAOx3 Chest: CTA Cardiac: Regular Abd: +BS, soft ND/NT Ext: No edema Hospital Course (1) Anemia Status: Acute Plan: - comgmt with GI and Hematology - Pt has prior h/o iron deficiency anemia - last Colonoscopy [address] Lino, pathology (10/04/15) --> adenomatous polyp - last EGD 02/12/[address] Ortega - gastric ulcer. Pathology: predominantly necroinflammatory exudate c/w ulceration with rare detached fragments of benign gastric mucosa - Pt has seen Hematology in the past, Dr. Bebeto Madsen, last visit 02/10/16 - Dr. Madsen felt pt's anemia was multifactorial d/t CKD & intermittent GIB with iron deficiency - Hematology has evaluated the pt and feel that most likely her anemia is related to chronic inflammatory disease and CKD - Peripheral smear is pending - JAK2 is pending. - pt transfused 3 units PRBCs on 03/08 - Hgb 7.1 (03/07) - Hgb 9.7 (03/09) - Hgb 9.5 (03/10) - PO Protonix - EGD/Colonoscopy ( 03/11/17) - large hiatal hernia - antral nodule/mass --> endoscopic US in the future - colon polyp, bx results pending - pt is currently pain free - discharge to home - f/u with Dr. Ortega in 2 weeks - f/u with Dr. Cristina in 3 weeks - f/u with PCP, Dr. Peterson in 1 week (2) Chronic pancreatitis Status: Chronic Plan: - continue creon - tube feeding G/J tube - Dietary recommended continuous TF at 50ml/hr (3) UTI (urinary tract infection) Status: Acute Plan: - abnormal UA - Pt started on Rocephin upon admission - Culture negative, indicating probable contaminants - Stopped the Rocephin (4) HTN (hypertension) Status: Chronic Plan: - metoprolol, procardia XL Pt Condition on Discharge: Stable Discharge Instructions Follow up Referrals: Gastroenterology - 2 Weeks with Gregg Ortega MD Oncology - [address] Eliazar Cristina PCP Follow-up - [address] Hong Peterson Changed Medications: Nutritional Supplements (Jevity 1.5 Alexander) 1 Liq Liq 50 ML JT HS 50 ml/hr continuous FLush J tube with free water, 60mL every 6 hours Flush G tube with 60mL before and after medication administration pancreatitis Days 30 CONTAINER (Changed from: 45 ML; 45ml/hr from 9pm to 7am every night FLush J tube with free water, 60mL every 6 hours Flush G tube with 60mL before and after medication administration) Continued Medications: Hydrocodone-Acetaminophen (Ruby) 5-325 mg Tab 1 TAB PO Q4H PRN PAIN #30 Ref 0 TAB (This prescription has been renewed) Metoprolol Tartrate (Metoprolol Tartrate) 25 Mg Tab 25 MG PO BID #60 Ref 0 TAB Nifedipine ER 24 HR (Procardia XL) 60 Mg Tab 60 MG PO DAILY htn #30 Ref 0 TAB Ondansetron Odt (Zofran Odt) 4 Mg Tab 4 MG SL Q8HR May substitute non-ODT form. PRN Nausea/Vomiting #15 TAB (This prescription has been renewed) Pancrelipase (Creon) 12,000-38,000-60,000 Units Cap 1 CAP PO TIDPC Digestive Aid #90 Ref 0 CAP Pantoprazole (Pantoprazole) 40 Mg Tab 40 MG PO BID Reflux #30 Ref 0 TAB Alexander Eddy DO Mar 13, 2017 13:24
[2017-03-13] MEDS ORDERED: JEVILIQ12 JT (13:30)
[2017-03-13] MEDS ORDERED: NORC5TAB PO (13:30)
[2017-03-13] MEDS ORDERED: ZOFR4TAB3 SL (13:30)
--- NOTE | 2017-03-13 13:35 | HHI.DCPOC ---
Discharge Care Plan Diagnosis: (1) Chronic recurrent pancreatitis (2) Anemia (3) HTN (hypertension) Goals to Promote Your Health * To prevent worsening of your condition and complications * To maintain your health at the optimal level Directions to Meet Your Goals Take your medications as prescribed Follow your dietary instruction Follow activity as directed Keep your appointments as scheduled Take your immunizations and boosters as scheduled If your symptoms worsen call your PCP, if no PCP go to Urgent Care Center or Emergency Room Smoking is Dangerous to Your Health. Avoid second hand smoke Call the 24-hour hour crisis hotline for domestic abuse at Alexander Eddy DO Mar 13, 2017 13:35
--- NOTE | 2017-03-13 15:11 | HHI.GIFU ---
Subjective Remarks Patient comfortable in bed feeling better she thinks she can go home tolerating tube feeds Objective Vitals I&O Vital Signs Date Time Temp Pulse Resp B/P Pulse Ox O2 Delivery O2 Flow Rate FiO2 03/13/17 13:11 16 03/13/17 11:24 97.1 106 17 121/61 100 03/13/17 08:30 Room Air 03/13/17 07:20 96.9 108 17 127/60 98 03/13/17 04:00 98.4 118 18 121/57 100 03/13/17 00:00 99.6 119 16 115/59 99 03/12/17 20:00 99.4 100 14 117/58 98 03/12/17 16:00 98.8 113 18 112/60 97 I/O 03/12/17 03/12/17 03/12/17 03/13/17 03/13/17 03/13/17 07:00 15:00 23:00 07:00 15:00 23:00 Intake Total 480 ml 1383 ml Balance 480 ml 1383 ml Intake Oral 120 ml 720 ml Tube Feeding 360 ml 463 ml Other 200 ml # Voids 1 1 # Bowel Movements 0 0 Physical Exam HEENT: Normocephalic; atraumatic; no jaundice. CHEST: CTA CARDIAC: RRR ABDOMEN: Soft, nondistended, epigastric/RUQ/LUQ tenderness; no hepatosplenomegaly; bowel sounds are present in all four quadrants. EXTREMITIES: No clubbing, cyanosis, or edema. SKIN: Normal; no rash; no jaundice. WORKFORCE MANAGER: No focal deficits; alert and oriented times three Assessment and Plan Plan ASSESSMENT: - Abdominal pain, NV. She states that she has had severe epigastric pain that is sharp and constant, radiating to LUQ and RUQ since she was discharged. She takes lortab at home for this, but states that it does not help. She has associated nausea without vomiting. PPI. Creon. Zofran. Clear liquids. Jevity 1.5 at 45cc/hr- post pylori feedings- this was turned off last night secondary to nausea/pain. She is willing to try this again today. - Anemia. H/H 7.2/22.7. Of note, she has been in the 7-8 range for several months. EGD/Colonoscopy (10/04/15) and this revealed an ulcer at the GE junction, thick gastric fold at pre-pyloric area, mild gastritis, duodenal inflammation in the bulb and second portion of the duodenum, small polyp in the ascending colon, and moderate internal hemorrhoids. Pathology revealed gastric antral mucosal biopsies with mild chronic gastritis exhibiting histopathologic features consistent with chemical gastropathy as may be seen with bile reflux, nonsteroidal anti-inflammatory drugs or other drug induced disease negative for intestinal metaplasia and dysplasia, gricelda stain negative for helicobacter , gastroesophageal mucosal biopsy with inflammatory changes consistent with reflux negative for intestinal metaplasia and dysplasia, colonic mucosa with adenomatous polyp. EGD (12/16/16)---> small hiatal hernia, antral nodule. Pathology reactive/chemical gastropathy. She does have chronic renal disease and this is likely contributing to her anemia- there does not seem to be any obvious active blood loss. Will plan for colonoscopy prior to d/c, but patient is unable to take bowel prep at this time. S/P 3 units PRBC. H/H 9.7/29.5 - Leukocytosis. 23.0. Afebrile. - Chronic pancreatitis, Idiopathic. S/P extensive workup for her recurrent pancreatitis with MRCP, ERCP with sphincterotomy for suspected sphincter dysfunction vs. microlithiasis, Ig4 level, EUS, Triglycerides, and tertiary evaluation. She was evaluated for anemia with She last had an ERCP/EUS (02/12/16) and this revealed unremarkable EUS of the pancrease, a stent was noted in the CBD but otherwise was normal, ampulla with prior sphincterotomy, botherwise normal, distal CBD stricture, smooth benign, this was dilated with CRE balloon 10mm post dilatation still significant narrowing and as such a full cover 10fr 6 cm wall stent was placed, positioning satisfactor, prior to stent placement a 15 mm balloon was used to clear the bile duct and no stones were noted, normal intrahepatic biliary tree- not dialted, gallbladder not seen, normal esophagus, hiatal hernia, large antral ulcer, clean based, GJ tube, this was dislodged and at the end was repositioned into the duodenum, normal duodenum. - Acute on chronic renal disease. Cerat 1.90, GFR 31. This has actually been improving. PLAN: -Pathology pending - PPI - Creon - Zofran prn - Monitor HH - Transfuse as necessary - Supportive care Okay for discharge from a GI standpoint follow-up in clinic in 2-3 weeks Gregg Ortega MD Mar 13, 2017 15:11
== END 2017-03-13 16:57 | disposition home health service (06) ==
LOC: NEPE 15:58 → INTOOBSV 18:51 → NEDA 18:51 → N06A 22:19
PROVIDERS: ADMIT Hospitalist; ATTEND Hospitalist
PROC: 0DB68ZX Excision of Stomach, Via Natural or Artificial Opening Endoscopic, Diagnostic (ICD-10-PCS; principal; 2017-03-11 10:03)
PROC: 0DBK8ZX Excision of Ascending Colon, Via Natural or Artificial Opening Endoscopic, Diagnostic (ICD-10-PCS; 2017-03-11 10:03)
DX: D64.9 Anemia, unspecified (principal); K86.1 Other chronic pancreatitis; I12.9 Hypertensive chronic kidney disease with stage 1 through stage 4 chronic kidney disease, or unspecified chronic kidney disease; N18.9 Chronic kidney disease, unspecified; N39.0 Urinary tract infection, site not specified; D12.2 Benign neoplasm of ascending colon; K29.50 Unspecified chronic gastritis without bleeding; D72.829 Elevated white blood cell count, unspecified; R06.00 Dyspnea, unspecified; K44.9 Diaphragmatic hernia without obstruction or gangrene; F41.9 Anxiety disorder, unspecified; M19.90 Unspecified osteoarthritis, unspecified site; E78.00 Pure hypercholesterolemia, unspecified; K21.9 Gastro-esophageal reflux disease without esophagitis; Z93.1 Gastrostomy status
CPT/HCPCS: 00740; 00810; 36430; 43239; 45380; 71020; 80048; 80053; 80076; 81001; 82607; 82728; 82746; 83540; 83550; 83615; 83690; 83735; 84484; 85025; 85027; 85060; 85610; 85652; 85730; 86140; 86850; 86900; 86901; 86920; 87086; 88305; 88312; 93005; 96361; 96365; 96375; 99285; C9113; G0378; J0696; J1170; J1940; J2270; J2405; J7040; J7050; P9016

== ENCOUNTER 2017-04-20 06:19 | Day surgery (SDC) | payer MEDICARE ==
[~2017-04-20] VITALS: Ht 167.6 cm; Wt 64.1 kg
[~2017-04-20 06:19] MED LIST changes: -CEPH250S G-TUBE; -SUCR1TAB PO
[2017-04-20 06:42] VITALS: BP 109/63; PULSE 53; RESP 18; TEMP 98.5; O2SAT 98
[2017-04-20] MEDS ORDERED: SUCR1TAB PO (06:57)
[2017-04-20] MEDS ORDERED: CART120C PO (06:57)
[2017-04-20] MEDS ORDERED: SODIUM CHLORIDE 0.9% 1000 ML IV SCH (07:00)
[2017-04-20] MEDS ORDERED: IOHEXOL 350 MG/ML 50 ML BTL (for RAD DIAG) G-TUBE ONE (10:06)
[2017-04-20 10:10] VITALS: BP 120/70; PULSE 60; RESP 18; TEMP 98.2; O2SAT 95
[2017-04-20 10:30] VITALS: BP 116/65; PULSE 60; RESP 18; O2SAT 99
--- NOTE | 2017-04-20 10:35 | PD.RAD ---
Post Procedure Progress Note Pre Procedure Diagnosis: (1) Feeding tube obstruction Post Procedure Diagnosis: (1) Feeding tube obstruction Procedure Date: Apr 20, 2017 Supervising Radiologist: Bhavin Montemayor Proceduralist/Assist: Clarissa Bradley, RT(R)(CV), Sharon Montes RT(R) Anesthesia: Local Plan of Activity Patient to Unit: ROPU Patient Condition: Good See PACS Report for procedural detail/treatment Bhavin Montemayor MD Apr 20, 2017 10:35
--- NOTE | 2017-04-20 10:56 | RADRPT ---
EXAM DATE/TIME: 04/20/2017 09:43 [place] COMPARISON: CHANGE OF GJ-TUBE CATHETER, January 27, 2017, 12:14. INDICATIONS : Patient with history of chronic pancreatitis in need of GJ tube exchange. MEDICAL HISTORY : HTN, A-Fib, Renal disease, GERD, Anemia, Atherosclerosis of aorta, Hemangioma, Peripheral neuropathy, HLD, Osteoporosis SURGICAL HISTORY : Cholecystectomy, Colonoscopy, ERCP, G tube placement, Biliary stent placement ENCOUNTER: Subsequent ACUITY: >1 year PAIN SCORE: 0/10 FLUORO TIME: 1.5 minutes IMAGE SERIES: 0 SEDATION TIME: 15 minutes CONTRAST: 15 cc Omnipaque (iohexol) 350 MEDICATION(S): 1.) 100 mcg fentanyl (Sublimaze) IV DEVICE(S): 1.) 22 [place] Transgastric tube PROCEDURE : 1. Fluoroscopically guided gastrojejunostomy tube exchange. 2. Conscious sedation with continuous EKG and oximetry monitoring. The risks, benefits and alternatives to the procedure were explained and verbal and written consent w as obtained. The site was prepped in sterile fashion. Full sterile technique was used, including ca p, mask, sterile gloves and gown and a large sterile sheet. Hand hygiene and 2% chlorhexidine and/or betadine/alcohol prep was utilized per protocol for cutaneous antisepsis. The skin and subcutaneous tissues were infiltrated with local anesthetic solution. With fluoroscopic guidance a guidewire was passed through the previous gastrojejunostomy tube and a f resh tube was placed over the guidewire. The balloon was inflated with appropriate volume of saline. Injection of positive contrast demonstrates good position of the gastric and jejunal lumens of the tube. Conscious sedation was performed with the prescribed dosages and duration as above in the presence of an independent trained radiology nurse to assist in the monitoring of the patient. EKG and oximetry remained stable throughout the procedure. The patient tolerated the procedure well and there were n o complications. The patient was sent to post anesthesia recovery in stable condition. CONCLUSION: Uncomplicated gastrojejunostomy tube exchange as above. Bhavin Montemayor MD on April 20, 2017 at 10:54 Board Certified Radiologist. This report was verified electronically.
== END 2017-04-20 11:00 | disposition home or self-care (01) ==
LOC: HROP 06:19 → HRIP 06:39 → HROP 11:00
PROVIDERS: ATTEND Internal Medicine Gastroenterology
DX: K94.23 Gastrostomy malfunction (principal); K86.1 Other chronic pancreatitis; I12.9 Hypertensive chronic kidney disease with stage 1 through stage 4 chronic kidney disease, or unspecified chronic kidney disease; N18.9 Chronic kidney disease, unspecified; E78.5 Hyperlipidemia, unspecified; K21.9 Gastro-esophageal reflux disease without esophagitis; I48.91 Unspecified atrial fibrillation; M81.0 Age-related osteoporosis without current pathological fracture; G62.9 Polyneuropathy, unspecified; D64.9 Anemia, unspecified; Z96.652 Presence of left artificial knee joint; Y83.3 Surgical operation with formation of external stoma as the cause of abnormal reaction of the patient, or of later complication, without mention of misadventure at the time of the procedure
CPT/HCPCS: 49452; C1769; C1874; J3010; J7030; Q9967

== ENCOUNTER 2017-04-23 14:36 | Day surgery (SDC) | payer MEDICARE ==
[~2017-04-23] VITALS: Ht 167.6 cm; Wt 67.0 kg
[~2017-04-23 14:36] MED LIST changes: +CART120C PO; -NIFE1TAB86 PO; +SUCR1TAB PO
[2017-04-23 15:00] VITALS: BP 107/65; PULSE 63; RESP 16; TEMP 98.3; O2SAT 100
[2017-04-23] MEDS ORDERED: fentaNYL CITRATE 250 MCG/5 ML AMP ONE (16:14)
[2017-04-23 16:45] VITALS: BP 126/74; PULSE 59; RESP 16; O2SAT 99
[2017-04-23] MEDS ORDERED: IOHEXOL 350 MG/ML 100 ML BTL (for RAD DIAG) G-TUBE ONE (16:48)
[2017-04-23 17:00] VITALS: BP 115/67; PULSE 61; RESP 16; O2SAT 99
--- NOTE | 2017-04-23 17:48 | RADRPT ---
EXAM DATE/TIME: 04/23/2017 16:18 [facility] COMPARISON: No previous studies available for comparison. INDICATIONS : Patient with hx of chronic pancreatitis. Occluded jejunal port of the gastrojejunostomy tube. MEDICAL HISTORY : 1. HTN 2. A -fib 3. renal disease 4. GERD 5. Anemia 6.Atherosclerosis of aorta 7. Hemangioma 8. Peripheral neuropathy 9. HLD SURGICAL HISTORY : 1. Cholecystectomy 2. colonoscopy 3. ERCP 4. G ube 5. Biliary stent ENCOUNTER: Subsequent ACUITY: >1 year PAIN SCORE: 0/10 FLUORO TIME: 4.1 minutes IMAGE SERIES: 2 SEDATION TIME: 30 minutes CONTRAST: 30 cc Omnipaque (iohexol) 350 MEDICATION(S): 1.) 50 mcg fentanyl (Sublimaze) IV DEVICE(S): 1.) 22 [place] Transgastric tube PROCEDURE : 1. Fluoroscopically guided gastrojejunostomy tube exchange. 2. Conscious sedation with continuous EKG and oximetry monitoring. The risks, benefits and alternatives to the procedure were explained and verbal and written consent w as obtained. The site was prepped in sterile fashion. Full sterile technique was used, including ca p, mask, sterile gloves and gown and a large sterile sheet. Hand hygiene and 2% chlorhexidine and/or betadine/alcohol prep was utilized per protocol for cutaneous antisepsis. The skin and subcutaneous tissues were infiltrated with local anesthetic solution. With fluoroscopic guidance a guidewire was passed through the previous gastrojejunostomy tube and a f resh tube was placed over the guidewire. The balloon was inflated with appropriate volume of saline. Injection of positive contrast demonstrates good position of the gastric and jejunal lumens of the tube. Conscious sedation was performed with the prescribed dosages and duration as above in the presence of an independent trained radiology nurse to assist in the monitoring of the patient. EKG and oximetry remained stable throughout the procedure. The patient tolerated the procedure well and there were n o complications. The patient was sent to post anesthesia recovery in stable condition. CONCLUSION: Uncomplicated gastrojejunostomy tube exchange as above. Stephan Alegria Jr., MD on April 23, 2017 at 17:46 Board Certified Radiologist. This report was verified electronically.
== END 2017-04-23 17:22 | disposition home or self-care (01) ==
LOC: HROP 14:36 → HRIP 14:41 → HROP 17:22
PROVIDERS: ATTEND Internal Medicine Gastroenterology
DX: K94.23 Gastrostomy malfunction (principal); K86.1 Other chronic pancreatitis; K86.81 Exocrine pancreatic insufficiency; I10 Essential (primary) hypertension; K21.9 Gastro-esophageal reflux disease without esophagitis; D64.9 Anemia, unspecified; D18.00 Hemangioma unspecified site; G62.9 Polyneuropathy, unspecified; E78.5 Hyperlipidemia, unspecified; N28.9 Disorder of kidney and ureter, unspecified
CPT/HCPCS: 49452; C1769; C1874; C1887; J3010; Q9967

== ENCOUNTER 2017-06-08 12:15 | Observation (INO) | payer MEDICARE ==
[~2017-06-08] VITALS: Ht 167.6 cm; Wt 69.0 kg
[2017-06-08 12:17] VITALS: BP 126/91; PULSE 123; RESP 15; TEMP 98.6
[2017-06-08 12:59] LABS: AUTOMATED NEUTROPHIL # 7.8 TH/MM3 (1.8-7.7); BASOPHIL % 0.3 % (0.0-2.0); EOSINOPHIL # 0.3 TH/MM3 (0-0.4); EOSINOPHIL % 3.3 % (0.0-4.0); HEMATOCRIT 35.4 % (35.0-46.0); LYMPH % 11.5 % (9.0-44.0); LYMPHOCYTE # 1.1 TH/MM3 (1.0-4.8); MEAN CELL VOLUME 87.3 FL (80.0-100.0); MEAN CORPUSCULAR HEMOGLOBIN 29.1 PG (27.0-34.0); MEAN CORPUSCULAR HGB CONC 33.4 % (32.0-36.0); MONO % 5.3 % (0.0-8.0); NEUT % 79.6 % (16.0-70.0); PLATELET COUNT 277 TH/MM3 (150-450); RED BLOOD COUNT 4.06 MIL/MM3 (4.00-5.30); RED CELL DISTRIBUTION WIDTH 14.9 % (11.6-17.2); WHITE BLOOD COUNT 9.8 TH/MM3 (4.0-11.0)
[2017-06-08 13:05] LABS: HEMO FLAGS AUTO DIFF
--- NOTE | 2017-06-08 13:23 | RADRPT ---
EXAM DATE/TIME: 06/08/2017 13:05 [facility] COMPARISON: CHEST PA & LAT, March 07, 2017, 16:35. INDICATIONS : Chest pain. MEDICAL HISTORY : Pancreatitis. Hypertension SURGICAL HISTORY : Cholecystectomy. Gastric tube. ENCOUNTER: Initial ACUITY: 2 days PAIN SCORE: 4/10 LOCATION: Bilateral chest FINDINGS: There is mild linear atelectasis or scarring in the left lower lobe. Right lung appears clear. No sig nificant effusion is suspected. Cardiomediastinal contours are satisfactory. CONCLUSION: Left lower lobe scarring or atelectasis. Luis E Flores MD on June 08, 2017 at 13:20 Board Certified Radiologist. This report was verified electronically.
[2017-06-08 13:41] LABS: ANION GAP 11 MEQ/L (5-15); AST (GOT) 128 U/L (15-37); BICARBONATE 24.9 MEQ/L (21.0-32.0); BLOOD UREA NITROGEN 44 MG/DL (7-18); CHLORIDE 104 MEQ/L (98-107); GLOMERULAR FILTRATION RATE 19 ML/MIN (>89); POTASSIUM 4.5 MEQ/L (3.5-5.1); SODIUM (NA) 140 MEQ/L (136-145)
[2017-06-08 13:46] LABS: ALKALINE PHOSPHATASE 560 U/L (45-117); ALT (GPT) 336 U/L (10-53); TOTAL BILIRUBIN ADULT 0.8 MG/DL (0.2-1.0)
[2017-06-08 13:47] LABS: CREATINE KINASE 27 U/L (26-192)
[2017-06-08 13:59] LABS: SCAN/DIFF AUTO DIFF CONFIRMED
--- NOTE | 2017-06-08 14:43 | PD ---
HPI Chief Complaint: Chest Pain Time Seen by Provider: 14:41 Travel History International Travel<30 days: No Contact w/Intl Traveler<30days: No Traveled to known affect area: No History of Present Illness HPI 81-year-old female came to the emergency room with history of right sided chest pain below her breast for past 1 week. Patient says she has been taking hydrocodone but it's not helping. She came here to be seen. Patient was tachycardic in triage. Denies any fever, nausea vomiting. Upon asking she said her gallbladder was taken out. Does not appear to be in significant distress. No aggravating or relieving factors. Says the pain is just there. PFSH Past Medical History Narrative Medical List of her past medical, surgical, social and family history is reviewed from the nursing note. Arthritis: Yes Asthma: No Atrial Fibrillation: Yes (HX YES PER PATIENT "NO") Autoimmune Disease: No Anxiety: No Depression: No Heart Rhythm Problems: Yes Cancer: No Cardiovascular Problems: Yes (HTN) High Cholesterol: Yes Chemotherapy: No Chest Pain: Yes Congestive Heart Failure: No COPD: No Cerebrovascular Accident: No Diabetes: No Diminished Hearing: No Endocrine: No Gastrointestinal Disorders: Yes (HIATAL HERNIA) GERD: Yes Glaucoma: No Genitourinary: No Headaches: No Hepatitis: No Hiatal Hernia: Yes Hypertension: Yes Immune Disorder: No Implanted Vascular Access Dvce: Yes Kidney Stones: No Musculoskeletal: No Neurologic: No Psychiatric: No Reproductive: No Respiratory: No Migraines: No Pancreatitis: Yes (chronic) Radiation Therapy: No Renal Failure: No Seizures: No Sickle Cell Disease: No Sleep Apnea: No Thyroid Disease: No Ulcer: No Menopausal: Yes : 2 Para: 2 Past Surgical History Abdominal Surgery: Yes (cholecystectomy, sphincterotomy) Arteriovenous Shunt: No Body Medical Devices: stent in abd Cardiac Surgery: No Cholecystectomy: Yes (2012) Ear Surgery: No Endocrine Surgery: No Eye Surgery: Yes Genitourinary Surgery: Yes (HEMORRHOIDECTOMY) Gynecologic Surgery: No Hysterectomy: Yes Insulin Pump: No Joint Replacement: Yes (TKR LEFT KNEE) Neurologic Surgery: No Oral Surgery: No Pacemaker: No Thoracic Surgery: No Other Surgery: Yes (GROWTH REMOVED FROM LEFT WRIST/Sinus) Social History Alcohol Use: Yes Tobacco Use: No Substance Use: No Allergies-Medications (Allergen,Severity, Reaction): Coded Allergies: No Known Allergies (Verified , 06/08/17) Comments NKDA Reported Meds & Prescriptions Reported Meds & Active Scripts Active Tyrone (Hydrocodone-Acetaminophen) 5-325 mg Tab 1 Tab PO Q4H PRN Zofran Odt (Ondansetron Odt) 4 Mg Tab 4 Mg SL Q8HR PRN May substitute non-ODT form. Reported Sucralfate 1 Gm Tab 1 Gm PO TID on empty stomach Cartia Xt (Diltiazem ER 24 HR) 120 Mg Caper 120 Mg PO DAILY Pantoprazole (Pantoprazole Sodium) 40 Mg Tab 40 Mg PO BID Creon (Amylase/Lipase/Protease) 12,000-38,000-60,000 Units Cap 1 Cap PO TIDPC Metoprolol Tartrate 25 Mg Tab 25 Mg PO BID Narrative Medication List of her home medications reviewed from the nursing note. Review of Systems Except as stated in HPI: all other systems reviewed are Neg Physical Exam Narrative GENERAL: Awake, alert, elderly and frail SKIN: Focused skin assessment warm/dry. HEAD: Atraumatic. Normocephalic. EYES: Pupils equal and round. No scleral icterus. No injection or drainage. ENT: No nasal bleeding or discharge. Mucous membranes pink and moist. NECK: Trachea midline. No JVD. CARDIOVASCULAR: Regular rate and rhythm. No murmur appreciated. RESPIRATORY: No accessory muscle use. Clear to auscultation. Breath sounds equal bilaterally. GASTROINTESTINAL: Abdomen soft, right upper quadrant/right subcostal tenderness on deep palpation, nondistended. Hepatic and splenic margins not palpable. MUSCULOSKELETAL: No obvious deformities. No clubbing. No cyanosis. No edema. NEUROLOGICAL: Awake and alert. No obvious cranial nerve deficits. Motor grossly within normal limits. Normal speech. PSYCHIATRIC: Appropriate mood and affect; insight and judgment normal. Data Data Last Documented VS Vital Signs Date Time Temp Pulse Resp B/P Pulse Ox O2 Delivery O2 Flow Rate FiO2 06/08/17 14:44 82 20 Room Air 06/08/17 12:17 98.6 126/91 Orders Complete Blood Count With Diff (06/08/17 12:21) Comprehensive Metabolic Panel (06/08/17 12:21) Lipase (06/08/17 12:21) Electrocardiogram (06/08/17 12:21) Ckmb (Isoenzyme) Profile (06/08/17 12:21) Troponin I (06/08/17 12:21) Chest, Single Ap (06/08/17 12:21) Us Abdomen Liver (06/08/17 ) Morphine Inj (Morphine Inj) (06/08/17 16:30) Piperacil-Tazo 4.5 Gm Premix (Zosyn 4.5 (06/08/17 16:30) Blood Culture (06/08/17 16:26) Lactic Acid (06/08/17 16:26) Admit Order (Ed Use Only) (06/08/17 16:39) Labs Laboratory Tests Test 06/08/17 12:50 White Blood Count 9.8 TH/MM3 Red Blood Count 4.06 MIL/MM3 Hemoglobin 11.8 GM/DL Hematocrit 35.4 % Mean Corpuscular Volume 87.3 FL Mean Corpuscular Hemoglobin 29.1 PG Mean Corpuscular Hemoglobin 33.4 % Concent Red Cell Distribution Width 14.9 % Platelet Count 277 TH/MM3 Mean Platelet Volume 8.4 FL Neutrophils (%) (Auto) 79.6 % Lymphocytes (%) (Auto) 11.5 % Monocytes (%) (Auto) 5.3 % Eosinophils (%) (Auto) 3.3 % Basophils (%) (Auto) 0.3 % Neutrophils # (Auto) 7.8 TH/MM3 Lymphocytes # (Auto) 1.1 TH/MM3 Monocytes # (Auto) 0.5 TH/MM3 Eosinophils # (Auto) 0.3 TH/MM3 Basophils # (Auto) 0.0 TH/MM3 CBC Comment AUTO DIFF Differential Comment AUTO DIFF CONFIRMED Sodium Level 140 MEQ/L Potassium Level 4.5 MEQ/L Chloride Level 104 MEQ/L Carbon Dioxide Level 24.9 MEQ/L Anion Gap 11 MEQ/L Blood Urea Nitrogen 44 MG/DL Creatinine 2.89 MG/DL Estimat Glomerular Filtration 19 ML/MIN Rate Random Glucose 116 MG/DL Calcium Level 9.9 MG/DL Total Bilirubin 0.8 MG/DL Aspartate Amino Transf 128 U/L (AST/SGOT) Alanine Aminotransferase 336 U/L (ALT/SGPT) Alkaline Phosphatase 560 U/L Total Creatine Kinase 27 U/L Troponin I LESS THAN 0.02 NG/ML Total Protein 8.5 GM/DL Albumin 3.2 GM/DL Lipase 68 U/L MDM Medical Decision Making Medical Screen Exam Complete: Yes Emergency Medical Condition: Yes Medical Record Reviewed: Yes Interpretation(s) Twelve-lead EKG was reviewed by me. Normal sinus rhythm, normal axis, tachycardia, nonspecific ST-T wave changes. Heart rate of 103 bpm. Differential Diagnosis Acute cholangitis, right-sided pneumonia, Narrative Course 4:32 PM blood test results were back which shows elevated LFTs and renal function. Patient has history of renal insufficiency and says she sees Dr. Melara for this. However when the labs returned back it was noticed that patient never had elevated LFTs. She does have history of frequent pancreatitis. I discussed the case with Dr. Melara and all he could tell me was this patient has a known history of renal insufficiency and chronic pancreatitis but not sure what could be causing his LFTs to go up. Meanwhile I had ordered a liver ultrasound for this patient. I discussed the report with Dr. Lala from radiology and he said that he could see some pneumobilia in the liver which could be from the metallic stent that she has. This is a frequent side effect of a metallic stent where the ear from the intestine can often get into the liver causing the pneumobilia but in the process could also cause cholangitis. He recommended a CT for the abdomen and pelvis which has been ordered. Unfortunately patient cannot get IV contrast due to her poor renal function. However I have decided to admit this patient at this point. She could get a GI consultation during her admission and serial liver function test. She asked for some pain medication recently and I have ordered some morphine for her. Awaiting for the hospitalist to call back. Procedures EKG Prior to Arrival: No Physician Communication Physician Communication Dr. Melara, Dr. Lala Diagnosis Primary Impression: Right upper quadrant pain Additional Impressions: Elevated LFTs questionable cholangitis Admitting Information Admitting Physician Requests: Observation Brandee Chicas MD Jun 08, 2017 14:43
--- NOTE | 2017-06-08 16:16 | RADRPT ---
EXAM DATE/TIME: 06/08/2017 15:13 [facility] COMPARISON: CT ABDOMEN & PELVIS W/O CONTRAST, December 14, 2016, 7:53. US ABDOMEN - LIVER, December 09, 2015, 16:5 8. INDICATIONS : Increased lab values. MEDICAL HISTORY : Hypertension. Hypercholesterolemia. Gastroesophageal reflux disease. Atrial fibrillation. Hiatal her nomi. Pancreatitis. Arthritis. Renal disease. SURGICAL HISTORY : Cholecystectomy. Hysterectomy. Total knee replacement, left. Sphincterotomy. ENCOUNTER: Initial ACUITY: 1 day PAIN SCORE: 4/10 LOCATION: Right upper quadrant MEASUREMENTS: LIVER: 13.1 cm length COMMON DUCT: 7 mm RIGHT KIDNEY: 7.3 x 5.0 x 4.9 cm SPLEEN: 9.0 cm length FINDINGS: LIVER: There are 2 areas of increased echogenicity in the left hepatic lobe and the dome of the right hepati c lobe. Based on prior CT scans, this may represent pneumobilia as the patient has a history of a met allic biliary stent. COMMON DUCT: Slightly prominent at 7 mm. Increased echogenicity of the wall is characteristic of the patient's pre viously noted biliary stent. GALLBLADDER: Not visualized characteristic of prior cholecystectomy. PANCREAS: Heterogeneous with no focal lesion. RIGHT KIDNEY: No hydronephrosis, stone or mass. Multiple benign-appearing cortical cysts SPLEEN: Echogenic foci posteriorly is well-circumscribed and may represent hemangioma. CONCLUSION: 1. Multiple echogenic foci in the left hepatic lobe and hepatic dome do not show shadowing and may re present pneumobilia. Patient has a history of a metallic biliary stent. 2. Well-circumscribed echogenic foci posteriorly in the spleen is overtly benign and may represent a hemangioma. 3. Multiple right renal cortical cysts. 4. Cholecystectomy Eliud Lala MD on June 08, 2017 at 16:08 Board Certified Radiologist. This report was verified electronically.
[2017-06-08] MEDS ORDERED: MORPHINE SULFATE 8 MG/ML INJ IV PUSH ONE (16:30)
[2017-06-08 16:55] VITALS: BP 116/55; PULSE 76; RESP 18; O2SAT 99
[2017-06-08] MEDS: PIPERACIL-TAZO 4.5 GM PREMIX 100 ML IV ONE ×2 (17:14→17:50)
[2017-06-08] MEDS ORDERED: ACETAMINOPHEN 325 MG TAB PO PRN (17:30)
--- NOTE | 2017-06-08 19:14 | HHI.HP ---
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 She has had numerous admissions for pain control over the years and currently has a feeding tube for supplemental tube feeding. Since her last admission she had exchange of her feeding tube. Also she has seen pain management for celiac block and says she takes hydrocodone twice dailiy for pain control. Over past week she c/o more ruq pain. She vomited once and denies any f/c, rigors, or diarrhea. On no other new medikcation. Her LFT were elevated in ED and I was called for observation of this pt. ED gave her zosyn to cover the biliary tree. She has a metal stent in bile duct. Review of Systems Other ruq pain Past Family Social History Past Medical History Idiopathic recurrent pancreatitis celiac plexus block. ckd 3 Anxiety GERD HTN lap ruth Cataract surgery Hemorrhoid surgery ERCP EUS G tube - Reported Medications [place] (Hydrocodone-Acetaminophen) 5-325 mg Tab 1 Tab PO Q4H PRN Zofran Odt (Ondansetron Odt) 4 Mg Tab 4 Mg SL Q8HR PRN May substitute non-ODT form. Reported Sucralfate 1 Gm Tab 1 Gm PO TID on empty stomach Cartia Xt (Diltiazem ER 24 HR) 120 Mg Caper 120 Mg PO DAILY Pantoprazole (Pantoprazole Sodium) 40 Mg Tab 40 Mg PO BID Creon (Amylase/Lipase/Protease) 12,000-38,000-60,000 Units Cap 1 Cap PO TIDPC Metoprolol Tartrate 25 Mg Tab 25 Mg PO BID Allergies: Coded Allergies: No Known Allergies (Verified , 06/08/17) Family History nc Social History no etoh/tob Physical Exam Vital Signs heart reg lung cta abd ruq tender. bs/nd feeding tube ext no edema Vital Signs Date Time Temp Pulse Resp B/P Pulse Ox O2 Delivery O2 Flow Rate FiO2 06/08/17 16:55 76 18 116/55 99 06/08/17 14:44 82 20 Room Air 06/08/17 12:17 98.6 123 15 126/91 Laboratory Laboratory Tests Test 06/08/17 06/08/17 12:50 17:46 White Blood Count 9.8 Red Blood Count 4.06 Hemoglobin 11.8 Hematocrit 35.4 Mean Corpuscular Volume 87.3 Mean Corpuscular Hemoglobin 29.1 Mean Corpuscular Hemoglobin 33.4 Concent Red Cell Distribution Width 14.9 Platelet Count 277 Mean Platelet Volume 8.4 Neutrophils (%) (Auto) 79.6 Lymphocytes (%) (Auto) 11.5 Monocytes (%) (Auto) 5.3 Eosinophils (%) (Auto) 3.3 Basophils (%) (Auto) 0.3 Neutrophils # (Auto) 7.8 Lymphocytes # (Auto) 1.1 Monocytes # (Auto) 0.5 Eosinophils # (Auto) 0.3 Basophils # (Auto) 0.0 CBC Comment AUTO DIFF Differential Comment AUTO DIFF CONFIRMED Sodium Level 140 Potassium Level 4.5 Chloride Level 104 Carbon Dioxide Level 24.9 Anion Gap 11 Blood Urea Nitrogen 44 Creatinine 2.89 Estimat Glomerular Filtration 19 Rate Random Glucose 116 Calcium Level 9.9 Total Bilirubin 0.8 Aspartate Amino Transf 128 (AST/SGOT) Alanine Aminotransferase 336 (ALT/SGPT) Alkaline Phosphatase 560 Total Creatine Kinase 27 Troponin I LESS THAN 0.02 Total Protein 8.5 Albumin 3.2 Lipase 68 Lactic Acid Level 0.9 Date/Time Procedure Status Source Growth 06/08/17 18:12 Aerobic Blood Culture Received Blood Peripheral Pending 06/08/17 18:12 Anaerobic Blood Culture Received Blood Peripheral Pending Result Diagram: 06/08/17 1250 06/08/17 1250 Assessment and Plan Problem List: (1) Elevated LFTs Status: Acute Plan: Pt is 81 yo with recurrent idiopathic pancreatitis. cbd metal stent chronic pain on narcotics. recent celiac plexus block ckd 3 presenting with wayne ruq pain and new elevation of LFT....eval for biliary obstruction, hepatocellular injury, medications ivf hydration and rcheck bmp in AM MRCP pending. avoid hepatotoxic drugs GI eval if no improvement. cont TF dvt prophylaxis (2) WAYNE (acute kidney injury) Status: Acute (3) Pancreatitis, recurrent Status: Chronic Bryan Quezada MD Jun 08, 2017 19:14
[2017-06-08 19:52] VITALS: BP 119/57; PULSE 82; RESP 18; TEMP 98.9; O2SAT 99
[2017-06-08] MEDS: ACETAMINOPHEN/HYDROcodone 325 MG/5 MG TAB PO PRN (21:34)
[2017-06-08] MEDS: METOPROLOL TARTRATE 25 MG TAB PO SCH (21:34)
[2017-06-08] MEDS: PANTOPRAZOLE SOD 40 MG DELAYED RELEASE TAB PO SCH (21:34)
[2017-06-08] MEDS: SODIUM CHLOR 0.9% 1000 ML INJ 1,000 ML IV SCH (22:36)
[2017-06-09 00:30] VITALS: BP 120/58; PULSE 72; RESP 17; TEMP 98.2; O2SAT 96
[2017-06-09] MEDS: ONDANSETRON HCL 4 MG/2 ML VIAL IV PRN ×3 (01:43→17:04)
[2017-06-09] MEDS: ACETAMINOPHEN/HYDROcodone 325 MG/5 MG TAB PO PRN ×3 (01:48→21:10)
[2017-06-09 03:18] VITALS: BP 110/57; PULSE 65; RESP 17; TEMP 98.1; O2SAT 100
[2017-06-09 08:30] VITALS: BP 98/55; PULSE 73; RESP 16; TEMP 98.7; O2SAT 100
[2017-06-09 08:35] LABS: ALKALINE PHOSPHATASE 619 U/L (45-117); ALT (GPT) 442 U/L (10-53); ANION GAP 8 MEQ/L (5-15); AST (GOT) 285 U/L (15-37); BICARBONATE 23.1 MEQ/L (21.0-32.0); BLOOD UREA NITROGEN 42 MG/DL (7-18); CHLORIDE 107 MEQ/L (98-107); GLOMERULAR FILTRATION RATE 21 ML/MIN (>89); POTASSIUM 4.9 MEQ/L (3.5-5.1); SODIUM (NA) 138 MEQ/L (136-145); TOTAL BILIRUBIN ADULT 1.1 MG/DL (0.2-1.0)
[2017-06-09 08:38] LABS: HEMATOCRIT 30.4 % (35.0-46.0); MEAN CORPUSCULAR HEMOGLOBIN 28.9 PG (27.0-34.0); MEAN CORPUSCULAR HGB CONC 33.2 % (32.0-36.0); PLATELET COUNT 238 TH/MM3 (150-450); RED CELL DISTRIBUTION WIDTH 14.4 % (11.6-17.2)
[2017-06-09 08:39] LABS: HEMO FLAGS AUTO DIFF
--- NOTE | 2017-06-09 08:56 | HHI.PR ---
Subjective Remarks Pt with nausea and continued RUQ abd discomfort Afebrile Objective Vitals Vital Signs Date Time Temp Pulse Resp B/P Pulse Ox O2 Delivery O2 Flow Rate FiO2 06/09/17 08:30 98.7 73 16 98/55 100 06/09/17 03:18 98.1 65 17 110/57 100 06/09/17 03:10 18 06/09/17 00:30 98.2 72 17 120/58 96 06/08/17 19:52 98.9 82 18 119/57 99 06/08/17 16:55 76 18 116/55 99 06/08/17 14:44 82 20 Room Air 06/08/17 12:17 98.6 123 15 126/91 Result Diagram: 06/08/17 1250 06/09/17 0629 Other Results Laboratory Tests Test 06/08/17 06/08/17 06/09/17 12:50 17:46 06:29 White Blood Count 9.8 TH/MM3 Red Blood Count 4.06 MIL/MM3 Hemoglobin 11.8 GM/DL Hematocrit 35.4 % Mean Corpuscular Volume 87.3 FL Mean Corpuscular Hemoglobin 29.1 PG Mean Corpuscular Hemoglobin 33.4 % Concent Red Cell Distribution Width 14.9 % Platelet Count 277 TH/MM3 Mean Platelet Volume 8.4 FL Neutrophils (%) (Auto) 79.6 % Lymphocytes (%) (Auto) 11.5 % Monocytes (%) (Auto) 5.3 % Eosinophils (%) (Auto) 3.3 % Basophils (%) (Auto) 0.3 % Neutrophils # (Auto) 7.8 TH/MM3 Lymphocytes # (Auto) 1.1 TH/MM3 Monocytes # (Auto) 0.5 TH/MM3 Eosinophils # (Auto) 0.3 TH/MM3 Basophils # (Auto) 0.0 TH/MM3 CBC Comment AUTO DIFF Differential Comment AUTO DIFF CONFIRMED Sodium Level 140 MEQ/L 138 MEQ/L Potassium Level 4.5 MEQ/L 4.9 MEQ/L Chloride Level 104 MEQ/L 107 MEQ/L Carbon Dioxide Level 24.9 MEQ/L 23.1 MEQ/L Anion Gap 11 MEQ/L 8 MEQ/L Blood Urea Nitrogen 44 MG/DL 42 MG/DL Creatinine 2.89 MG/DL 2.60 MG/DL Estimat Glomerular Filtration 19 ML/MIN 21 ML/MIN Rate Random Glucose 116 MG/DL 103 MG/DL Calcium Level 9.9 MG/DL 8.8 MG/DL Total Bilirubin 0.8 MG/DL 1.1 MG/DL Aspartate Amino Transf 128 U/L 285 U/L (AST/SGOT) Alanine Aminotransferase 336 U/L 442 U/L (ALT/SGPT) Alkaline Phosphatase 560 U/L 619 U/L Total Creatine Kinase 27 U/L Troponin I LESS THAN 0.02 NG/ML Total Protein 8.5 GM/DL 6.8 GM/DL Albumin 3.2 GM/DL 2.5 GM/DL Lipase 68 U/L 60 U/L Lactic Acid Level 0.9 mmol/L Imaging Last Impressions Chest X-Ray 06/08/17 1221 Signed Impressions: Service Date/Time: Thursday, June 08, 2017 13:05 - CONCLUSION: Left lower lobe scarring or atelectasis. Luis E Flores MD Liver Ultrasound 06/08/17 0000 Signed Impressions: Service Date/Time: Thursday, June 08, 2017 15:13 - CONCLUSION: 1. Multiple echogenic foci in the left hepatic lobe and hepatic dome do not show shadowing and may represent pneumobilia. Patient has a history of a metallic biliary stent. 2. Well-circumscribed echogenic foci posteriorly in the spleen is overtly benign and may represent a hemangioma. 3. Multiple right renal cortical cysts. 4. Cholecystectomy Eliud Lala MD Objective Remarks General: NAD, AAOx3 Chest: CTA Cardiac: Regular Abd: +BS, soft RUQ discomfort, GJ tube in place Ext: No edema A/P Problem List: (1) Elevated LFTs Status: Acute Plan: - Pt is an 81 yo female with recurrent idiopathic pancreatitis, she has had extensive workup for her recurrent pancreatitis in the past with MRCP, ERCP with sphincterotomy and stent placement for suspected sphincter dysfunction vs. microlithiasis, EUS and tertiary evaluation. - She last had an ERCP/EUS (02/12/16) and this revealed unremarkable EUS of the pancreas, a stent was noted in the CBD but otherwise was normal, ampulla with prior sphincterotomy, distal CBD stricture, smooth/ benign and this was dilated with CRE balloon 10mm post dilatation still significant narrowing and as such a full cover 10fr 6 cm wall stent was placed, positioning satisfactory, prior to stent placement a 15 mm balloon was used to clear the bile duct and no stones were noted, normal intrahepatic biliary tree- not dilated - Pt presented to the ED with RUQ abd pain and elevated LFTs. - Liver US (06/08) --> Multiple echogenic foci in the left hepatic lobe and hepatic dome do not show shadowing and may represent pneumobilia. Patient has a history of a metallic biliary stent. Well-circumscribed echogenic foci posteriorly in the spleen is overtly benign and may represent a hemangioma. Multiple right renal cortical cysts. Cholecystectomy - Pt has chronic pain and is on narcotics. She recently had a celiac plexus block in 04/2017 - MRCP is ordered, evaluating for biliary obstruction vs. hepatocellular injury vs. medications as a cause for her symptoms. - Await repeat labs for today - Cont. IVF hydration - Avoid hepatotoxic drugs - GI consult - Cont TF - DVT prophylaxis (2) WAYNE (acute kidney injury) Status: Acute Plan: - Admitted with acute worsening of her CKD, stage 3 - IVF hydration - Monitor labs daily (3) Pancreatitis, recurrent Status: Chronic Assessment and Plan Patient examined. Assessment and plan formulated with Guadalupe Monson PA-C. I agree with the above. mrcp shows biliary obstruction and probable stones. ercp planned. hold tf and cont ivf wayne/ckd 4. cont ivf. Guadalupe Monson Jun 09, 2017 08:56 Bryan Quezada MD Jun 09, 2017 21:09
[2017-06-09] MEDS: METOPROLOL TARTRATE 25 MG TAB PO SCH ×2 (08:57→21:10)
[2017-06-09 09:33] LABS: BANDS 5 % (0-6); BASOPHILS 1 % (0-2); EOSINOPHILS 1 % (0-4); NEUTROPHIL # MANUAL DIFF 6.6 TH/MM3 (1.8-7.7); PLATELET ESTIMATE SMEAR NORMAL (NORMAL); PLATELET MORPHOLOGY NORMAL (NORMAL); POLYS (SEG NEUTROPHILS) 68 % (16-70); SCAN/DIFF FINAL DIFF MANUAL; WBC DIFF SAMPLE 100
[2017-06-09] MEDS: DILTIAZEM-CD 120 MG CAP ER PO SCH (09:56)
[2017-06-09] MEDS: SUCRALFATE 1 GM TAB PO SCH ×3 (09:56→18:27)
[2017-06-09] MEDS: LIPASE/PROTEASE/AMYLASE (12,000/38,000/60,000) CAP PO SCH ×3 (09:56→18:27)
[2017-06-09] MEDS: PANTOPRAZOLE SOD 40 MG DELAYED RELEASE TAB PO SCH ×2 (09:57→21:10)
[2017-06-09] MEDS: SODIUM CHLOR 0.9% 1000 ML INJ 1,000 ML IV SCH ×2 (09:58→21:13)
--- NOTE | 2017-06-09 10:17 | RADRPT ---
EXAM DATE/TIME: 06/09/2017 09:01 [facility] COMPARISON: CHEST SINGLE AP, June 08, 2017, 13:05. CT ABDOMEN & PELVIS W/O CONTRAST, February 21, 2017, 16:42. MRC P W/O CONTRAST, November 22, 2015, 8:20. INDICATIONS : RUQ pain, elevated LFTs, hx of chronic pancreatitis. MEDICAL HISTORY : Renal insufficiency. Pancreatitis. SURGICAL HISTORY : Cholecystectomy. Hemorrhoidectomy. Biliary stent placed. Knee replacement. ENCOUNTER: Subsequent ACUITY: 2 day PAIN SCORE: 3/10 LOCATION: Right upper quadrant abdomen. TECHNIQUE: Multiplanar, multisequence magnetic resonance imaging of the abdomen was performed. High-resolution 3D dataset was utilized to reconstruct maximum-intensity projection (MIP) images. FINDINGS: There is significant dilation of the extrahepatic biliary system with the common bile duct measuring 18 mm in greatest caliber. Extensive debris is noted throughout the common bile duct and common hepa tic duct. A metallic stent is noted within the common hepatic and common bile ducts. There are mult iple stable bilateral renal cysts. There is a 19 mm splenic nodule consistent with probable hemangio ma. The adrenal glands are unremarkable. The pancreatic duct is top normal in caliber. No pancreat ic mass is identified. A gastrojejunal tube is noted in good position with its tip in the jejunum. Degenerative changes and scoliosis of the thoracolumbar spine are noted. CONCLUSION: 1. Significant dilatation of the extrahepatic biliary system with extensive filling defects within t he dilated extrahepatic biliary system suggesting sludge, stones and/or blood clot. 2. Multiple bilateral renal cysts. 3. Stable 19 mm splenic nodule consistent with probable hemangioma. 4. Gastrojejunal tube is noted in good position in the proximal to mid jejunum. 5. Degenerative changes and scoliosis of the thoracolumbar spine. Jonah Aguirre MD on June 09, 2017 at 9:56 Board Certified Radiologist. This report was verified electronically.
--- NOTE | 2017-06-09 11:04 | PD.CONS ---
HPI History of Present Illness This is a 81 year old AA female with a hx of idiopathic recurrent pancreatitis , metallic biliary stent, who came to the ER for further evaluation of persistent nausea/vomiting and abdominal pain. She has had multiple hospitalizations for her these symptoms and has had had extensive workup for her recurrent pancreatitis with MRCP, ERCP with sphincterotomy for suspected sphincter dysfunction vs. microlithiasis, Ig4 level, EUS, Triglycerides, and tertiary evaluation. She was evaluated for anemia with EGD/Colonoscopy (03/11/17 ) Large hiatal hernia, Antral nodule/mass, Colon polyp, BX revealed moderately active chronic antral gastritis with focal ulceration, no H-pylori, colon polyp bx revealed tubular adenoma. She then was evaluated by EGD/EUS on ( 04/15/17 ) large hiatal hernia, G-J tube, antral mas ulcerated 2 X 1 Cm, Eus revealed antral mass appears superficial mucosal done not infiltrate, MP intact, the Pancrease appeared unremarkable, normal PD, no lymphadenopathy , bx of the stomach revealed inflammatory polyp. She had an ERCP/EUS (02/12/16) and this revealed unremarkable EUS of the Pancrease, a stent was noted in the CBD but otherwise was normal, ampulla with prior sphincterotomy, otherwise normal, distal CBD stricture, smooth benign, this was dilated with CRE balloon 10mm post dilatation still significant narrowing and as such a full cover 10fr 6 cm wall stent was placed, positioning satisfactory, prior to stent placement a 15 mm balloon was used to clear the bile duct and no stones were noted, normal intrahepatic biliary tree- not dilated, gallbladder not seen, normal esophagus, hiatal hernia, large antral ulcer, clean based, GJ tube, this was dislodged and at the end was repositioned into the duodenum, normal duodenum. States the pain started a couple of days ago, more on the right, this was associated with nausea and vomiting. She normally uses supplemental feeding at night and eats by mouth during the day. States she has been doing good up till this episode started which is similar to pancreatic attack. Labs revealed elevated LFTs, today AST 285, ALT 442, ALP 619, these are trending up from yesterday. Lipase 60. Normal WBC, hgb of 10, she does have chronic anemia. Liver Ultrasound 1. Multiple echogenic foci in the left hepatic lobe and hepatic dome do not show shadowing and may represent pneumobilia. Patient has a history of a metallic biliary stent. 2. Well-circumscribed echogenic foci posteriorly in the spleen is overtly benign and may represent a hemangioma. 3. Multiple right renal cortical cysts. 4. Cholecystectomy MRCP done and that showed significant dilatation of extrahepatic biliary with extensive filling defects suggesting sludge, stones ro blood lot. Renal cysts, salable 19 mm splenic nodule consistent with hemangioma. She denies fever, chills, hematemesis, hematochezia or melena. She was placed on Zosyn. 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 Social History Denies tobacco, etoh use (Alex Hanks) GI Exam Vitals I&O Vital Signs Date Time Temp Pulse Resp B/P Pulse Ox O2 Delivery O2 Flow Rate FiO2 06/09/17 08:30 98.7 73 16 98/55 100 06/09/17 03:18 98.1 65 17 110/57 100 06/09/17 03:10 18 06/09/17 00:30 98.2 72 17 120/58 96 06/08/17 19:52 98.9 82 18 119/57 99 06/08/17 16:55 76 18 116/55 99 06/08/17 14:44 82 20 Room Air 06/08/17 12:17 98.6 123 15 126/91 Imaging Last Impressions Chest X-Ray 06/08/17 1221 Signed Impressions: Service Date/Time: Thursday, June 08, 2017 13:05 - CONCLUSION: Left lower lobe scarring or atelectasis. Luis E Flores MD Liver Ultrasound 06/08/17 0000 Signed Impressions: Service Date/Time: Thursday, June 08, 2017 15:13 - CONCLUSION: 1. Multiple echogenic foci in the left hepatic lobe and hepatic dome do not show shadowing and may represent pneumobilia. Patient has a history of a metallic biliary stent. 2. Well-circumscribed echogenic foci posteriorly in the spleen is overtly benign and may represent a hemangioma. 3. Multiple right renal cortical cysts. 4. Cholecystectomy Eliud Lala MD Laboratory Test 06/08/17 06/08/17 06/09/17 12:50 17:46 06:29 White Blood Count 9.8 TH/MM3 9.0 TH/MM3 Red Blood Count 4.06 MIL/MM3 3.50 MIL/MM3 Hemoglobin 11.8 GM/DL 10.1 GM/DL Hematocrit 35.4 % 30.4 % Mean Corpuscular Volume 87.3 FL 87.0 FL Mean Corpuscular Hemoglobin 29.1 PG 28.9 PG Mean Corpuscular Hemoglobin 33.4 % 33.2 % Concent Red Cell Distribution Width 14.9 % 14.4 % Platelet Count 277 TH/MM3 238 TH/MM3 Mean Platelet Volume 8.4 FL 8.6 FL Neutrophils (%) (Auto) 79.6 % % Lymphocytes (%) (Auto) 11.5 % % Monocytes (%) (Auto) 5.3 % % Eosinophils (%) (Auto) 3.3 % % Basophils (%) (Auto) 0.3 % % Neutrophils # (Auto) 7.8 TH/MM3 TH/MM3 Lymphocytes # (Auto) 1.1 TH/MM3 TH/MM3 Monocytes # (Auto) 0.5 TH/MM3 TH/MM3 Eosinophils # (Auto) 0.3 TH/MM3 TH/MM3 Basophils # (Auto) 0.0 TH/MM3 TH/MM3 CBC Comment AUTO DIFF AUTO DIFF Differential Comment AUTO DIFF FINAL DIFF CONFIRMED MANUAL Sodium Level 140 MEQ/L 138 MEQ/L Potassium Level 4.5 MEQ/L 4.9 MEQ/L Chloride Level 104 MEQ/L 107 MEQ/L Carbon Dioxide Level 24.9 MEQ/L 23.1 MEQ/L Anion Gap 11 MEQ/L 8 MEQ/L Blood Urea Nitrogen 44 MG/DL 42 MG/DL Creatinine 2.89 MG/DL 2.60 MG/DL Estimat Glomerular Filtration 19 ML/MIN 21 ML/MIN Rate Random Glucose 116 MG/DL 103 MG/DL Calcium Level 9.9 MG/DL 8.8 MG/DL Total Bilirubin 0.8 MG/DL 1.1 MG/DL Aspartate Amino Transf 128 U/L 285 U/L (AST/SGOT) Alanine Aminotransferase 336 U/L 442 U/L (ALT/SGPT) Alkaline Phosphatase 560 U/L 619 U/L Total Creatine Kinase 27 U/L Troponin I LESS THAN 0.02 NG/ML Total Protein 8.5 GM/DL 6.8 GM/DL Albumin 3.2 GM/DL 2.5 GM/DL Lipase 68 U/L 60 U/L Lactic Acid Level 0.9 mmol/L Differential Total Cells 100 Counted Neutrophils % (Manual) 68 % Band Neutrophils % 5 % Lymphocytes % 18 % Monocytes % 7 % Eosinophils % 1 % Basophils % 1 % Neutrophils # (Manual) 6.6 TH/MM3 Platelet Estimate NORMAL Platelet Morphology Comment NORMAL Date/Time Procedure Status Source Growth 06/08/17 18:12 Aerobic Blood Culture Received Blood Peripheral Pending 06/08/17 18:12 Anaerobic Blood Culture Received Blood Peripheral Pending Physical Examination HEENT: normocephalic; atraumatic; no jaundice. NECK: Neck is supple, no JVD, no lymphadenopathy. CHEST: Chest is clear to auscultation and percussion. CARDIAC: Regular rate and rhythm with no murmur gallop or rubs. ABDOMEN: Soft, nondistended, Right sided tenderness; no hepatosplenomegaly; bowel sounds are present in all four quadrants. EXTREMITIES: No clubbing, cyanosis, or edema. SKIN: Normal; no rash; no jaundice. VISION SPECIALIST: No focal deficits; alert and oriented times three. (Alex Hanks) Assessment and Plan Plan - Recurrent idiopathic pancreatitis, Abdominal pain, N/V/ possible choledocholithiasis. Labs revealed elevated LFTs, today AST 285, ALT 442, ALP 619, these are trending up from yesterday. Lipase 60. Normal WBC, hgb of 10, she does have chronic anemia. Liver Ultrasound 06/08/17 1. Multiple echogenic foci in the left hepatic lobe and hepatic dome do not show shadowing and may represent pneumobilia. Patient has a history of a metallic biliary stent. 2. Well-circumscribed echogenic foci posteriorly in the spleen is overtly benign and may represent a hemangioma. 3. Multiple right renal cortical cysts. 4. Cholecystectomy MRCP done and that showed significant dilatation of extrahepatic biliary with extensive filling defects suggesting sludge, stones ro blood lot. Renal cysts, salable 19 mm splenic nodule consistent with hemangioma. She denies fever, chills, hematemesis, hematochezia or melena. She was placed on Zosyn. - Chronic pancreatitis, Idiopathic. S/P extensive workup for her recurrent pancreatitis with MRCP, ERCP with sphincterotomy for suspected sphincter dysfunction vs. microlithiasis, Ig4 level, EUS, Triglycerides, and tertiary evaluation. She had an ERCP/EUS (02/12/16) and this revealed unremarkable EUS of the Pancrease, a stent was noted in the CBD but otherwise was normal, ampulla with prior sphincterotomy, otherwise normal, distal CBD stricture, smooth benign, this was dilated with CRE balloon 10mm post dilatation still significant narrowing and as such a full cover 10fr 6 cm wall stent was placed, positioning satisfactory, prior to stent placement a 15 mm balloon was used to clear the bile duct and no stones were noted, normal intrahepatic biliary tree- not dilated, gallbladder not seen, normal esophagus, hiatal hernia, large antral ulcer, clean based, GJ tube, this was dislodged and at the end was repositioned into the duodenum, normal duodenum. - Anemia- No active bleeding hgb is 10. EGD/Colonoscopy (03/11/17) Large hiatal hernia, Antral nodule/mass, Colon polyp, BX revealed moderately active chronic antral gastritis with focal ulceration, no H-pylori, colon polyp bx revealed tubular adenoma. She then was evaluated by EGD/EUS on ( 04/15/17 ) large hiatal hernia, G-J tube, antral mas ulcerated 2 X 1 Cm, Eus revealed antral mass appears superficial mucosal done not infiltrate, MP intact, the Pancrease appeared unremarkable, normal PD, no lymphadenopathy , bx of the stomach revealed inflammatory polyp. - Acute on chronic renal disease. PLAN: - Clear liquids - ERCP/stent exchange tomorrow, risk, benefits and alternative explained and patient is agreeing - NPO mn - Obtain consents - Findings and recommendations were discussed with daughter on the phone, she is involved in patient care, daughter would like to discuss it first with patient and Dr. Ortega - Cont. Zosyn - PPI - CMP, CBC in am - Supportive care - Further recommendations to follow based on results of above - Pt seen and examined by Dr. Ortega and myself and this note is written on his behalf (Alex Hanks) Physician Comments Patient seen and examined Agree with above Continue with current supportive care Monitor labs Plan for ERCP tomorrow (Gregg Ortega MD) Alex Hanks KILLIAN Jun 09, 2017 11:04 Gregg Ortega MD Jun 09, 2017 19:39 Gregg Ortega MD Jun 09, 2017 19:39
[2017-06-09 12:01] VITALS: BP 101/54; PULSE 73; RESP 16; TEMP 98.4; O2SAT 100
[2017-06-09 16:19] VITALS: BP 118/64; PULSE 75; RESP 18; TEMP 98.4; O2SAT 98
[2017-06-09 19:30] VITALS: BP 127/58; PULSE 74; RESP 18; TEMP 98.1; O2SAT 98
--- NOTE | 2017-06-09 21:17 | EKG ---
Date Performed: 06/08/2017 Time Performed: 12:29:11 PTAGE: 81 years EKG: SINUS TACHYCARDIA POSSIBLE RIGHT ATRIAL ENLARGEMENT LEFT ATRIAL ENLARGEMENT ABNORMAL ECG PREVIOUS TRACING : 06/08/2017 12.28 Compared to prior tracing no significant change DOCTOR: Mekhi Eddy Interpretating Date/Time 06/09/2017 21:16:31
[2017-06-10] VITALS (11 sets, daily range): BP systolic 107–149; BP diastolic 57–79; PULSE 60–75; RESP 16–18; TEMP 97.5–98.8; O2SAT 94–99
[2017-06-10] MEDS: ONDANSETRON HCL 4 MG/2 ML VIAL IV PRN (03:06)
[2017-06-10] MEDS: ACETAMINOPHEN/HYDROcodone 325 MG/5 MG TAB PO PRN ×3 (03:06→20:21)
[2017-06-10 05:20] LABS: BASOPHIL % 0.6 % (0.0-2.0); EOSINOPHIL # 0.4 TH/MM3 (0-0.4); EOSINOPHIL % 5.8 % (0.0-4.0); HEMATOCRIT 28.9 % (35.0-46.0); HEMO FLAGS DIFF FINAL; LYMPH % 18.3 % (9.0-44.0); LYMPHOCYTE # 1.3 TH/MM3 (1.0-4.8); MEAN CELL VOLUME 87.7 FL (80.0-100.0); MEAN CORPUSCULAR HGB CONC 33.1 % (32.0-36.0); NEUT % 68.3 % (16.0-70.0); PLATELET COUNT 233 TH/MM3 (150-450); RED BLOOD COUNT 3.29 MIL/MM3 (4.00-5.30); RED CELL DISTRIBUTION WIDTH 14.2 % (11.6-17.2); WHITE BLOOD COUNT 7.3 TH/MM3 (4.0-11.0)
[2017-06-10 05:46] LABS: ANION GAP 5 MEQ/L (5-15); AST (GOT) 172 U/L (15-37); BICARBONATE 23.8 MEQ/L (21.0-32.0); BLOOD UREA NITROGEN 33 MG/DL (7-18); CHLORIDE 111 MEQ/L (98-107); GLOMERULAR FILTRATION RATE 24 ML/MIN (>89); POTASSIUM 4.5 MEQ/L (3.5-5.1); SODIUM (NA) 140 MEQ/L (136-145)
[2017-06-10 05:48] LABS: ALT (GPT) 373 U/L (10-53)
[2017-06-10 05:50] LABS: ALKALINE PHOSPHATASE 569 U/L (45-117); TOTAL BILIRUBIN ADULT 0.7 MG/DL (0.2-1.0)
[2017-06-10] MEDS: SUCRALFATE 1 GM TAB PO SCH ×3 (08:00→17:17)
[2017-06-10] MEDS: SODIUM CHLOR 0.9% 1000 ML INJ 1,000 ML IV SCH ×2 (09:30→23:57)
[2017-06-10] MEDS ORDERED: IOHEXOL 350 MG/ML 50 ML BTL (for RAD DIAG) OTHER ONE (09:44)
--- NOTE | 2017-06-10 10:17 | PD.PROCEDR ---
GI Procedure REFERRING PHYSICIAN Dr. Quezada PROCEDURE PERFORMED ERCP with balloon extraction INDICATION FOR PROCEDURE Choledocholithiasis PROCEDURE: The procedure, risks and benefits were discussed with Jennifer Chava and informed consent was obtained. Patient underwent general anesthesia. She was placed in the left lateral decubitus position. ERCP: Patient was placed in a prone position. The Pentax videoscope was introduced through the oropharynx and advanced to the second portion of the duodenum where the ampula was identified. FINDINGS: The patient was noted to have a GJ tube which was in good position but the J portion was obscuring vision of the ampulla so this was pulled into the stomach the patient is noted to have had prior sphincterotomy and has a metal stent in the bile duct we were able to obtain easy cannulation of the common bile duct but the stent was clubbed up with sludge and stones and so using an 8 mm balloon we were able to clean out the distal CBD and clean out the metal stent then this was lavaged and then further cleaning was performed and then an obstructive cholangiogram finally we were able to clear the common bile duct of all filling defects and at this point the procedure was terminated ESTIMATED BLOOD LOSS: None SPECIMENS REMOVED: None COMPLICATIONS: None IMPRESSION: Choledocholithiasis PLAN: Supportive care Monitor labs Patient will need IR to reposition and replace her GJ tube Gregg Ortega MD Jun 10, 2017 10:17
[2017-06-10] MEDS ORDERED: DO NOT ADM ANY ANTICOAGULANT DRUGS PRN (10:22)
[2017-06-10] MEDS ORDERED: *ONDANSETRON 4 MG VIAL PERIprocedural Use ONLY ONE (10:31)
[2017-06-10] MEDS ORDERED: PROPOFOL 200 MG/20 ML AMP IV PUSH ONE (10:35)
--- NOTE | 2017-06-10 10:40 | HHI.PR ---
Subjective Remarks Pt going down for ERCP this morning. Objective Vitals Vital Signs Date Time Temp Pulse Resp B/P Pulse Ox O2 Delivery O2 Flow Rate FiO2 06/10/17 07:30 98.7 62 16 123/57 99 06/10/17 04:12 18 06/10/17 03:56 98.5 74 18 120/58 97 06/10/17 00:48 98.4 74 18 126/60 97 06/10/17 00:43 98.4 64 18 124/79 97 06/09/17 19:30 98.1 74 18 127/58 98 06/09/17 16:19 98.4 75 18 118/64 98 06/09/17 12:01 98.4 73 16 101/54 100 06/09/17 06/09/17 06/10/17 15:00 23:00 07:00 Intake Total 1733 ml Balance 1733 ml Intake Oral 725 ml IV Total 1008 ml # Voids 1 Result Diagram: 06/10/17 0442 06/10/17 0442 Other Results Laboratory Tests Test 06/08/17 06/08/17 06/09/17 06/10/17 12:50 17:46 06:29 04:42 White Blood Count 9.8 TH/MM3 9.0 TH/MM3 7.3 TH/MM3 Red Blood Count 4.06 MIL/MM3 3.50 MIL/MM3 3.29 MIL/MM3 Hemoglobin 11.8 GM/DL 10.1 GM/DL 9.5 GM/DL Hematocrit 35.4 % 30.4 % 28.9 % Mean Corpuscular Volume 87.3 FL 87.0 FL 87.7 FL Mean Corpuscular Hemoglobin 29.1 PG 28.9 PG 29.0 PG Mean Corpuscular Hemoglobin 33.4 % 33.2 % 33.1 % Concent Red Cell Distribution Width 14.9 % 14.4 % 14.2 % Platelet Count 277 TH/MM3 238 TH/MM3 233 TH/MM3 Mean Platelet Volume 8.4 FL 8.6 FL 8.2 FL Neutrophils (%) (Auto) 79.6 % % 68.3 % Lymphocytes (%) (Auto) 11.5 % % 18.3 % Monocytes (%) (Auto) 5.3 % % 7.0 % Eosinophils (%) (Auto) 3.3 % % 5.8 % Basophils (%) (Auto) 0.3 % % 0.6 % Neutrophils # (Auto) 7.8 TH/MM3 TH/MM3 5.0 TH/MM3 Lymphocytes # (Auto) 1.1 TH/MM3 TH/MM3 1.3 TH/MM3 Monocytes # (Auto) 0.5 TH/MM3 TH/MM3 0.5 TH/MM3 Eosinophils # (Auto) 0.3 TH/MM3 TH/MM3 0.4 TH/MM3 Basophils # (Auto) 0.0 TH/MM3 TH/MM3 0.0 TH/MM3 CBC Comment AUTO DIFF AUTO DIFF DIFF FINAL Differential Comment AUTO DIFF FINAL DIFF CONFIRMED MANUAL Sodium Level 140 MEQ/L 138 MEQ/L 140 MEQ/L Potassium Level 4.5 MEQ/L 4.9 MEQ/L 4.5 MEQ/L Chloride Level 104 MEQ/L 107 MEQ/L 111 MEQ/L Carbon Dioxide Level 24.9 MEQ/L 23.1 MEQ/L 23.8 MEQ/L Anion Gap 11 MEQ/L 8 MEQ/L 5 MEQ/L Blood Urea Nitrogen 44 MG/DL 42 MG/DL 33 MG/DL Creatinine 2.89 MG/DL 2.60 MG/DL 2.34 MG/DL Estimat Glomerular Filtration 19 ML/MIN 21 ML/MIN 24 ML/MIN Rate Random Glucose 116 MG/DL 103 MG/DL 87 MG/DL Calcium Level 9.9 MG/DL 8.8 MG/DL 8.8 MG/DL Total Bilirubin 0.8 MG/DL 1.1 MG/DL 0.7 MG/DL Aspartate Amino Transf 128 U/L 285 U/L 172 U/L (AST/SGOT) Alanine Aminotransferase 336 U/L 442 U/L 373 U/L (ALT/SGPT) Alkaline Phosphatase 560 U/L 619 U/L 569 U/L Total Creatine Kinase 27 U/L Troponin I LESS THAN 0.02 NG/ML Total Protein 8.5 GM/DL 6.8 GM/DL 6.4 GM/DL Albumin 3.2 GM/DL 2.5 GM/DL 2.4 GM/DL Lipase 68 U/L 60 U/L 70 U/L Lactic Acid Level 0.9 mmol/L Differential Total Cells 100 Counted Neutrophils % (Manual) 68 % Band Neutrophils % 5 % Lymphocytes % 18 % Monocytes % 7 % Eosinophils % 1 % Basophils % 1 % Neutrophils # (Manual) 6.6 TH/MM3 Platelet Estimate NORMAL Platelet Morphology Comment NORMAL Imaging Last Impressions Cholangiopancreatography MRI 06/09/17 Signed Impressions: Service Date/Time: Friday, June 09, 2017 09:01 - CONCLUSION: 1. Significant dilatation of the extrahepatic biliary system with extensive filling defects within the dilated extrahepatic biliary system suggesting sludge, stones and/or blood clot. 2. Multiple bilateral renal cysts. 3. Stable 19 mm splenic nodule consistent with probable hemangioma. 4. Gastrojejunal tube is noted in good position in the proximal to mid jejunum. 5. Degenerative changes and scoliosis of the thoracolumbar spine. Jonah Aguirre MD Chest X-Ray [id number]/08/[id number] Signed Impressions: Service Date/Time: Thursday, June 08, 2017 13:05 - CONCLUSION: Left lower lobe scarring or atelectasis. Luis E Flores MD Liver Ultrasound 06/08/17 Signed Impressions: Service Date/Time: Thursday, June 08, 2017 15:13 - CONCLUSION: 1. Multiple echogenic foci in the left hepatic lobe and hepatic dome do not show shadowing and may represent pneumobilia. Patient has a history of a metallic biliary stent. 2. Well-circumscribed echogenic foci posteriorly in the spleen is overtly benign and may represent a hemangioma. 3. Multiple right renal cortical cysts. 4. Cholecystectomy Eliud Lala MD Last Impressions Chest X-Ray [id number]/08/[id number] Signed Impressions: Service Date/Time: Thursday, June 08, 2017 13:05 - CONCLUSION: Left lower lobe scarring or atelectasis. Luis E Flores MD Liver Ultrasound 06/08/17 Signed Impressions: Service Date/Time: Thursday, June 08, 2017 15:13 - CONCLUSION: 1. Multiple echogenic foci in the left hepatic lobe and hepatic dome do not show shadowing and may represent pneumobilia. Patient has a history of a metallic biliary stent. 2. Well-circumscribed echogenic foci posteriorly in the spleen is overtly benign and may represent a hemangioma. 3. Multiple right renal cortical cysts. 4. Cholecystectomy Eliud Lala MD Objective Remarks General: NAD, AAOx3 Chest: CTA Cardiac: Regular Abd: +BS, soft RUQ discomfort, GJ tube in place Ext: No edema A/P Problem List: (1) Elevated LFTs Status: Acute Plan: - Pt is an 81 yo female with recurrent idiopathic pancreatitis, she has had extensive workup for her recurrent pancreatitis in the past with MRCP, ERCP with sphincterotomy and stent placement for suspected sphincter dysfunction vs. microlithiasis, EUS and tertiary evaluation. - She last had an ERCP/EUS (02/12/16) and this revealed unremarkable EUS of the pancreas, a stent was noted in the CBD but otherwise was normal, ampulla with prior sphincterotomy, distal CBD stricture, smooth/ benign and this was dilated with CRE balloon 10mm post dilatation still significant narrowing and as such a full cover 10fr 6 cm wall stent was placed, positioning satisfactory, prior to stent placement a 15 mm balloon was used to clear the bile duct and no stones were noted, normal intrahepatic biliary tree- not dilated - Pt presented to the ED with RUQ abd pain and elevated LFTs. - Liver US (06/08) --> Multiple echogenic foci in the left hepatic lobe and hepatic dome do not show shadowing and may represent pneumobilia. Patient has a history of a metallic biliary stent. Well-circumscribed echogenic foci posteriorly in the spleen is overtly benign and may represent a hemangioma. Multiple right renal cortical cysts. Cholecystectomy - Pt has chronic pain and is on narcotics. She recently had a celiac plexus block in 04/2017 - MRCP (06/09) --> Significant dilatation of the extrahepatic biliary system with extensive filling defects within the dilated extrahepatic biliary system suggesting sludge, stones and/or blood clot. Multiple bilateral renal cysts. Stable 19 mm splenic nodule consistent with probable hemangioma. Gastrojejunal tube is noted in good position in the proximal to mid jejunum. - GI following. - Pt to have ERCP with stent exchange today - Cont. IVF hydration - Avoid hepatotoxic drugs - Repeat labs in AM - DVT prophylaxis (2) WAYNE (acute kidney injury) Status: Acute Plan: - Admitted with acute worsening of her CKD, stage 3 - IVF hydration - Monitor labs daily (3) Pancreatitis, recurrent Status: Chronic Assessment and Plan Patient examined. Assessment and plan formulated with Guadalupe Monson PA-C. I agree with the above. stones/sludge swept from the cbd stent per GI her j tube was removed during procedure and will be replaced by IR today. resume TF after. ivf and recheck cr as she has wayne. Guadalupe Monson 27, 2017 10:40 Bryan Quezada MD Jun 10, 2017 16:11
[2017-06-10] MEDS: METOPROLOL TARTRATE 25 MG TAB PO SCH ×2 (11:52→20:22)
[2017-06-10] MEDS: LIPASE/PROTEASE/AMYLASE (12,000/38,000/60,000) CAP PO SCH ×3 (11:52→18:30)
[2017-06-10] MEDS: DILTIAZEM-CD 120 MG CAP ER PO SCH (11:52)
[2017-06-10] MEDS: PANTOPRAZOLE SOD 40 MG DELAYED RELEASE TAB PO SCH ×2 (11:52→20:22)
--- NOTE | 2017-06-10 13:32 | RADRPT ---
EXAM DATE/TIME: 06/10/2017 10:09 [facility] COMPARISON: CT ABDOMEN & PELVIS W/O CONTRAST, February 21, 2017, 16:42. MRCP W/O CONTRAST, June 09, 2017, 9:01. GI LAB ERCP, December 11, 2015, 11:56. INDICATIONS : Obstruction, with balloon extraction. FLUORO TIME: minutes IMAGE COUNT: 1 CONTRAST: Instilled by Ordering Physician MEDICAL HISTORY : Cholelithiasis. SURGICAL HISTORY : None. ENCOUNTER: Initial ACUITY: 1 day PAIN SCORE: Non-responsive. LOCATION: Right upper quadrant FINDINGS: An ERCP was performed by the ordering physician. The image demonstrates a metallic stent in the CBD. On prior images, a Silastic stent is present. So me contrast is identified in the intrahepatic biliary atrium. The endoscope is not engaged into the a mpulla on the single image provided. CONCLUSION: ERCP as above. Eliud Lala MD on June 10, 2017 at 13:25 Board Certified Radiologist. This report was verified electronically.
[2017-06-10] MEDS ORDERED: MIDAZOLAM HCL 2 MG/2 ML VIAL ONE (15:00)
[2017-06-10] MEDS ORDERED: IOHEXOL 350 MG/ML 50 ML BTL (for RAD DIAG) G-TUBE ONE (15:42)
--- NOTE | 2017-06-10 15:51 | PD.RAD ---
Post Procedure Progress Note Pre Procedure Diagnosis: (1) Encounter for feeding tube placement Post Procedure Diagnosis: (1) Encounter for feeding tube placement Procedure Date: Jun 10, 2017 Supervising Radiologist: Stephan Alegria JR Proceduralist/Assist: Harmony Tinoco RT(R), RT Karlos(R)() Anesthesia: Conscious Sedation Plan of Activity Patient to Unit: ROPU Patient Condition: Good See PACS Report for procedural detail/treatment Feeding Tube Gastro/Jejunostomy Reposition Mexican: 22 Findings: Jejunal limb of GJ tube repositioned back into the jejunum. Jr. Raji,Stephan Chase MD Jun 10, 2017 15:51
--- NOTE | 2017-06-10 16:52 | RADRPT ---
EXAM DATE/TIME: 06/10/2017 15:15 [facility] COMPARISON: No previous studies available for comparison. INDICATIONS : Patient is in need of an exchange of exisitng transgastric G-J tube. The jejunal portion of the tube was retracted into the stomach as needed for ERCP. MEDICAL HISTORY : History of chronic pancreatitis, HTN, AFIB, HLD, GERD, CKD, anemia, aortic atherosclerosis, hemangiom a. SURGICAL HISTORY : History of G-J exchanges, cholecystectomy, colonoscopy, ERCP, biliary stent placement. ENCOUNTER: Subsequent ACUITY: 1 day PAIN SCORE: 0/10 FLUORO TIME: 3.0 minutes IMAGE SERIES: 2 SEDATION TIME: 15 minutes CONTRAST: 10 cc MEDICATION(S): 1.) 2 mg midazolam (Versed) IV 2.) 100 mcg Fentanyl (Sublimaze) IV DEVICE(S): 1.) 22 [place] Transgastric tube PROCEDURE : 1. Fluoroscopically guided gastrojejunostomy tube exchange. 2. Conscious sedation with continuous EKG and oximetry monitoring. The risks, benefits and alternatives to the procedure were explained and verbal and written consent w as obtained. The site was prepped in sterile fashion. Full sterile technique was used, including ca p, mask, sterile gloves and gown and a large sterile sheet. Hand hygiene and 2% chlorhexidine and/or betadine/alcohol prep was utilized per protocol for cutaneous antisepsis. With fluoroscopic guidance a guidewire was passed through the previous gastrojejunostomy tube. A Monika nstein catheter was utilized to gain access into the jejunum. A new gastrojejunostomy tube was passed over the wire. The balloon was inflated with 10 mL of saline. Injection of positive contrast demons trates good position of the gastric and jejunal lumens of the tube. Conscious sedation was performed with the prescribed dosages and duration as above in the presence of an independent trained radiology nurse to assist in the monitoring of the patient. EKG and oximetry remained stable throughout the procedure. The patient tolerated the procedure well and there were n o complications. The patient was sent to post anesthesia recovery in stable condition. CONCLUSION: Uncomplicated gastrojejunostomy tube repositioning and exchange as above. Stephan Alegria Jr., MD on June 10, 2017 at 16:49 Board Certified Radiologist. This report was verified electronically.
[2017-06-11 02:57] VITALS: BP 128/81; PULSE 78; RESP 18; TEMP 98.6; O2SAT 96
[2017-06-11] MEDS: ACETAMINOPHEN/HYDROcodone 325 MG/5 MG TAB PO PRN (04:02)
[2017-06-11 05:48] LABS: AUTOMATED NEUTROPHIL # 6.8 TH/MM3 (1.8-7.7); BASOPHIL % 0.5 % (0.0-2.0); EOSINOPHIL # 0.4 TH/MM3 (0-0.4); EOSINOPHIL % 4.2 % (0.0-4.0); HEMATOCRIT 28.9 % (35.0-46.0); LYMPH % 11.6 % (9.0-44.0); MEAN CORPUSCULAR HEMOGLOBIN 28.6 PG (27.0-34.0); MEAN CORPUSCULAR HGB CONC 32.9 % (32.0-36.0); NEUT % 77.7 % (16.0-70.0); PLATELET COUNT 259 TH/MM3 (150-450); RED BLOOD COUNT 3.32 MIL/MM3 (4.00-5.30); RED CELL DISTRIBUTION WIDTH 14.1 % (11.6-17.2); WHITE BLOOD COUNT 8.7 TH/MM3 (4.0-11.0)
[2017-06-11 05:52] LABS: HEMO FLAGS AUTO DIFF
[2017-06-11 06:04] LABS: ALT (GPT) 280 U/L (10-53); ANION GAP 8 MEQ/L (5-15); AST (GOT) 82 U/L (15-37); BICARBONATE 24.2 MEQ/L (21.0-32.0); BLOOD UREA NITROGEN 27 MG/DL (7-18); CHLORIDE 111 MEQ/L (98-107); GLOMERULAR FILTRATION RATE 27 ML/MIN (>89); POTASSIUM 4.2 MEQ/L (3.5-5.1); SODIUM (NA) 143 MEQ/L (136-145)
[2017-06-11 06:06] LABS: ALKALINE PHOSPHATASE 511 U/L (45-117); TOTAL BILIRUBIN ADULT 0.3 MG/DL (0.2-1.0)
[2017-06-11 07:15] VITALS: BP 103/52; PULSE 81; RESP 16; TEMP 98.6; O2SAT 97
[2017-06-11] MEDS: SUCRALFATE 1 GM TAB PO SCH ×2 (07:56→11:27)
[2017-06-11 08:20] LABS: KERATOCYTES OCC (NORMAL); SCAN/DIFF AUTO DIFF CONFIRMED
--- NOTE | 2017-06-11 08:49 | HHI.DCPOC ---
Discharge Care Plan Diagnosis: (1) Elevated LFTs (2) WAYNE (acute kidney injury) (3) Choledocholithiasis (4) Chronic pancreatitis Goals to Promote Your Health * To prevent worsening of your condition and complications * To maintain your health at the optimal level Directions to Meet Your Goals Take your medications as prescribed Follow your dietary instruction Follow activity as directed Keep your appointments as scheduled Take your immunizations and boosters as scheduled If your symptoms worsen call your PCP, if no PCP go to Urgent Care Center or Emergency Room Smoking is Dangerous to Your Health. Avoid second hand smoke Call the 24-hour hour crisis hotline for domestic abuse at Guadalupe Monson Jun 11, 2017 08:49
--- NOTE | 2017-06-11 08:49 | HHI.DS ---
Discharge Summary Admission Date Jun 08, 2017 at 16:40 Discharge Date: Jun 11, 2017 Admitting Diagnosis elevated liver function test, (1) Elevated LFTs Diagnosis: Principal (2) Choledocholithiasis Diagnosis: Secondary (3) WAYNE (acute kidney injury) Diagnosis: Secondary (4) Pancreatitis, recurrent Diagnosis: Secondary Consultants Dr. Gregg Ortega - Gastroenterology Procedures ERCP (06/10/17) --> The patient was noted to have a GJ tube which was in good position but the J portion was obscuring vision of the ampulla so this was pulled into the stomach the patient is noted to have had prior sphincterotomy and has a metal stent in the bile duct we were able to obtain easy cannulation of the common bile duct but the stent was clubbed up with sludge and stones and so using an 8 mm balloon we were able to clean out the distal CBD and clean out the metal stent then this was lavaged and then further cleaning was performed and then an obstructive cholangiogram finally we were able to clear the common bile duct of all filling defects and at this point the procedure was terminated Brief History Pt is an 81 yo with recurrent idiopathic pancreatitis. She has had numerous admissions for pain control over the years and currently has a feeding tube for supplemental tube feeding. Since her last admission she had exchange of her feeding tube. Also she has seen pain management for celiac block and says she takes hydrocodone twice dailiy for pain control. Over past week she c/o more ruq pain. She vomited once and denies any f/c, rigors, or diarrhea. On no other new medikcation. Her LFT were elevated in ED and I was called for observation of this pt. ED gave her zosyn to cover the biliary tree. She has a metal stent in bile duct. CBC/BMP: 06/11/17 0513 06/11/17 0513 Significant Findings Laboratory Tests Test 06/08/17 06/09/17 06/10/17 06/11/17 12:50 06:29 04:42 05:13 Neutrophils (%) (Auto) 79.6 % 77.7 % (16.0-70.0) (16.0-70.0) Neutrophils # (Auto) 7.8 TH/MM3 (1.8-7.7) Blood Urea Nitrogen 44 MG/DL (7-18) 42 MG/DL (7-18) 33 MG/DL (7-18) 27 MG/DL (7- 18) Creatinine 2.89 MG/DL 2.60 MG/DL 2.34 MG/DL 2.13 MG/DL (0.50-1.00) (0.50-1.00) (0.50-1.00) (0.50-1.00) Estimat Glomerular Filtration 19 ML/MIN (>89) 21 ML/MIN (>89) 24 ML/MIN (>89) 27 ML/MIN (>89) Rate Random Glucose 116 MG/DL 122 MG/DL (74-106) (74-106) Aspartate Amino Transf 128 U/L (15-37) 285 U/L (15-37) 172 U/L (15-37) 82 U/L ( 15-37) (AST/SGOT) Alanine Aminotransferase 336 U/L (10-53) 442 U/L (10-53) 373 U/L (10-53) 280 U/ L (10-53) (ALT/SGPT) Alkaline Phosphatase 560 U/L 619 U/L 569 U/L 511 U/L (45-117) (45-117) (45-117) (45-117) Troponin I LESS THAN 0.02 NG/ML (0.02-0.05) Total Protein 8.5 GM/DL 6.2 GM/DL (6.4-8.2) (6.4-8.2) Albumin 3.2 GM/DL 2.5 GM/DL 2.4 GM/DL 2.3 GM/DL (3.4-5.0) (3.4-5.0) (3.4-5.0) (3.4-5.0) Lipase 68 U/L (73-393) 60 U/L (73-393) 70 U/L (73-393) Red Blood Count 3.50 MIL/MM3 3.29 MIL/MM3 3.32 MIL/MM3 (4.00-5.30) (4.00-5.30) (4.00-5.30) Hemoglobin 10.1 GM/DL 9.5 GM/DL 9.5 GM/DL (11.6-15.3) (11.6-15.3) (11.6-15.3) Hematocrit 30.4 % 28.9 % 28.9 % (35.0-46.0) (35.0-46.0) (35.0-46.0) Total Bilirubin 1.1 MG/DL (0.2-1.0) Eosinophils (%) (Auto) 5.8 % (0.0-4.0) 4.2 % (0.0-4.0) Chloride Level 111 MEQ/L 111 MEQ/L (98-107) (98-107) Keratocytes OCC (NORMAL) Calcium Level 8.4 MG/DL (8.5-10.1) Imaging Last Impressions Tube Change 06/10/17 0000 Signed Impressions: Service Date/Time: May 15:15 - CONCLUSION: Uncomplicated gastrojejunostomy tube repositioning and exchange as above. Stephan Alegria Jr., MD GI Procedure 06/10/17 0000 Signed Impressions: Service Date/Time: , June 10, 2017 10:09 - CONCLUSION: ERCP as above. Eliud Lala MD Cholangiopancreatography MRI 06/09/17 0000 Signed Impressions: Service Date/Time: Friday, June 09, 2017 09:01 - CONCLUSION: 1. Significant dilatation of the extrahepatic biliary system with extensive filling defects within the dilated extrahepatic biliary system suggesting sludge, stones and/or blood clot. 2. Multiple bilateral renal cysts. 3. Stable 19 mm splenic nodule consistent with probable hemangioma. 4. Gastrojejunal tube is noted in good position in the proximal to mid jejunum. 5. Degenerative changes and scoliosis of the thoracolumbar spine. Jonah Aguirre MD Chest X-Ray 06/08/17 1221 Signed Impressions: Service Date/Time: Thursday, June 08, 2017 13:05 - CONCLUSION: Left lower lobe scarring or atelectasis. Luis E Flores MD Liver Ultrasound 06/08/17 0000 Signed Impressions: Service Date/Time: Thursday, June 08, 2017 15:13 - CONCLUSION: 1. Multiple echogenic foci in the left hepatic lobe and hepatic dome do not show shadowing and may represent pneumobilia. Patient has a history of a metallic biliary stent. 2. Well-circumscribed echogenic foci posteriorly in the spleen is overtly benign and may represent a hemangioma. 3. Multiple right renal cortical cysts. 4. Cholecystectomy Eliud Lala MD PE at Discharge General: NAD, AAOx3 Chest: CTA Cardiac: Regular Abd: +BS, soft RUQ discomfort, GJ tube in place Ext: No edema Hospital Course Pt is an 81 yo female with recurrent idiopathic pancreatitis, she has had extensive workup for her recurrent pancreatitis in the past with MRCP, ERCP with sphincterotomy and stent placement for suspected sphincter dysfunction vs. microlithiasis, EUS and tertiary evaluation. Pt presented to the ED with RUQ abd pain and elevated LFTs. Liver US (06/08) --> Multiple echogenic foci in the left hepatic lobe and hepatic dome do not show shadowing and may represent pneumobilia. Patient has a history of a metallic biliary stent. Pt has chronic pain and is on narcotics. She recently had a celiac plexus block in 04/2017. MRCP (06/09) --> Significant dilatation of the extrahepatic biliary system with extensive filling defects within the dilated extrahepatic biliary system suggesting sludge, stones and/or blood clot, multiple bilateral renal cysts, stable 19 mm splenic nodule consistent with probable hemangioma, GJ tube is noted in good position in the proximal to mid jejunum. GI was consulted. Pt underwent evaluation with ERCP (06/10/17) with Dr. Ortega which revealed a GJ tube which was in good position but the J portion was obscuring vision of the ampulla so this was pulled into the stomach the patient was noted to have had prior sphincterotomy and has a metal stent in the bile duct we were able to obtain easy cannulation of the common bile duct but the stent was clogged up with sludge and stones and so using an 8 mm balloon we were able to clean out the distal CBD and clean out the metal stent then this was lavaged and then further cleaning was performed and then an obstructive cholangiogram was finally able to clear the common bile duct of all filling defects and at this point the procedure was terminated. She had her GJ tube exchanged due to repositioning during ERCP on 06/10/17 by IR. Pt tolerated her TF, her LFTs improved, and her renal function slowly improved during admission. Pt was without complaints on the day of discharge. No reported abdominal pain. She was tolerating TF. Tolerating fluids. Encouraged fluid intake at home as her renal function had not yet returned to baseline with Cr 2.13 on the day of discharge but her labs had been continuously improving throughout this admission. She was agreeable with this plan. Pt will need to followup with her PCP, Dr. Peterson, in 1 week Pt will need to followup with GI, Dr. Ortega, in 2 weeks. Pt Condition on Discharge: Stable Discharge Disposition: Discharge Home Discharge Instructions DIET: Follow Instructions for: On Tube Feeding, Clear Liquid Diet Activities you can perform: Regular-No Restrictions Follow up Referrals: Gastroenterology - 2 Weeks with Gregg Ortega MD PCP Follow-up - [address] Peterson Continued Medications: Diltiazem ER 24 HR (Cartia Xt) 120 Mg Caper 120 MG PO DAILY #30 Ref 0 CAP Hydrocodone-Acetaminophen ([place]) 5-325 mg Tab 1 TAB PO Q4H PRN PAIN #30 Ref 0 TAB Metoprolol Tartrate (Metoprolol Tartrate) 25 Mg Tab 25 MG PO BID #60 Ref 0 TAB Ondansetron Odt (Zofran Odt) 4 Mg Tab 4 MG SL Q8HR May substitute non-ODT form. PRN Nausea/Vomiting #15 TAB Pancrelipase (Creon) 12,000-38,000-60,000 Units Cap 1 CAP PO TIDPC Digestive Aid #90 Ref 0 CAP Pantoprazole (Pantoprazole) 40 Mg Tab 40 MG PO BID Reflux #30 Ref 0 TAB Sucralfate (Sucralfate) 1 Gm Tab 1 GM PO TID on empty stomach Duodenal ulcer #90 Ref 0 TAB Guadalupe Monson Jun 11, 2017 08:49 Bryan Quezada MD Jun 11, 2017 21:45
[2017-06-11] MEDS: DILTIAZEM-CD 120 MG CAP ER PO SCH (09:52)
[2017-06-11] MEDS: LIPASE/PROTEASE/AMYLASE (12,000/38,000/60,000) CAP PO SCH ×2 (09:52→14:43)
[2017-06-11] MEDS: PANTOPRAZOLE SOD 40 MG DELAYED RELEASE TAB PO SCH (09:52)
[2017-06-11] MEDS: METOPROLOL TARTRATE 25 MG TAB PO SCH (09:52)
[2017-06-11] MEDS ORDERED: BENZOCAINE-MENTHOL (SUGAR FREE) 15 MG-3.6 MG LOZENGE BUCCAL PRN (10:00)
[2017-06-11 11:30] VITALS: BP 121/59; PULSE 74; RESP 16; TEMP 98.3; O2SAT 99
[2017-06-11] MEDS: SODIUM CHLOR 0.9% 1000 ML INJ 1,000 ML IV SCH (12:28)
--- NOTE | 2017-06-11 13:23 | HHI.GIFU ---
Subjective Remarks Patient is resting in bed. Reports significant improvement in abd pain, denies nausea or vomiting (Alex Hanks) Objective Vitals I&O Vital Signs Date Time Temp Pulse Resp B/P Pulse Ox O2 Delivery O2 Flow Rate FiO2 06/11/17 11:30 98.3 74 16 121/59 99 06/11/17 07:15 98.6 81 16 103/52 97 06/11/17 02:57 98.6 78 18 128/81 96 06/10/17 23:55 18 06/10/17 23:18 98.8 75 18 107/63 97 06/10/17 19:15 98.4 18 126/58 98 06/10/17 16:40 70 16 131/65 94 06/10/17 16:25 65 16 129/62 94 06/10/17 16:10 60 16 122/66 96 06/10/17 15:55 98.8 66 16 136/67 96 I/O 06/10/17 06/10/17 06/10/17 06/11/17 06/11/17 06/11/17 07:00 15:00 23:00 07:00 15:00 23:00 Intake Total 1240 ml 240 ml 950 ml Output Total 5 ml Balance 1235 ml 240 ml 950 ml Intake Oral 240 ml 240 ml IV Total 950 ml Other 1000 ml Output Estimated Blood Loss 5 ml # Voids 1 1 1 Laboratory Laboratory Tests Test 06/11/17 05:13 White Blood Count 8.7 Red Blood Count 3.32 Hemoglobin 9.5 Hematocrit 28.9 Mean Corpuscular Volume 87.0 Mean Corpuscular Hemoglobin 28.6 Mean Corpuscular Hemoglobin 32.9 Concent Red Cell Distribution Width 14.1 Platelet Count 259 Mean Platelet Volume 8.2 Neutrophils (%) (Auto) 77.7 Lymphocytes (%) (Auto) 11.6 Monocytes (%) (Auto) 6.0 Eosinophils (%) (Auto) 4.2 Basophils (%) (Auto) 0.5 Neutrophils # (Auto) 6.8 Lymphocytes # (Auto) 1.0 Monocytes # (Auto) 0.5 Eosinophils # (Auto) 0.4 Basophils # (Auto) 0.0 CBC Comment AUTO DIFF Differential Comment AUTO DIFF CONFIRMED Keratocytes OCC Sodium Level 143 Potassium Level 4.2 Chloride Level 111 Carbon Dioxide Level 24.2 Anion Gap 8 Blood Urea Nitrogen 27 Creatinine 2.13 Estimat Glomerular Filtration 27 Rate Random Glucose 122 Calcium Level 8.4 Total Bilirubin 0.3 Aspartate Amino Transf 82 (AST/SGOT) Alanine Aminotransferase 280 (ALT/SGPT) Alkaline Phosphatase 511 Total Protein 6.2 Albumin 2.3 Date/Time Procedure Status Source Growth 06/08/17 18:12 Aerobic Blood Culture - Preliminary Resulted Blood Peripheral NO GROWTH IN 3 DAYS 06/08/17 18:12 Anaerobic Blood Culture - Preliminary Resulted Blood Peripheral NO GROWTH IN 3 DAYS Imaging Last Impressions Tube Change 06/10/17 0000 Signed Impressions: Service Date/Time: May 15:15 - CONCLUSION: Uncomplicated gastrojejunostomy tube repositioning and exchange as above. Stephan Alegria Jr., MD GI Procedure 06/10/17 0000 Signed Impressions: Service Date/Time: May 10:09 - CONCLUSION: ERCP as above. Eliud Lala MD Cholangiopancreatography MRI 06/09/17 0000 Signed Impressions: Service Date/Time: Friday, June 09, 2017 09:01 - CONCLUSION: 1. Significant dilatation of the extrahepatic biliary system with extensive filling defects within the dilated extrahepatic biliary system suggesting sludge, stones and/or blood clot. 2. Multiple bilateral renal cysts. 3. Stable 19 mm splenic nodule consistent with probable hemangioma. 4. Gastrojejunal tube is noted in good position in the proximal to mid jejunum. 5. Degenerative changes and scoliosis of the thoracolumbar spine. Jonah Aguirre MD Chest X-Ray 06/08/17 1221 Signed Impressions: Service Date/Time: Thursday, June 08, 2017 13:05 - CONCLUSION: Left lower lobe scarring or atelectasis. Luis E Flores MD Liver Ultrasound 06/08/17 0000 Signed Impressions: Service Date/Time: Thursday, June 08, 2017 15:13 - CONCLUSION: 1. Multiple echogenic foci in the left hepatic lobe and hepatic dome do not show shadowing and may represent pneumobilia. Patient has a history of a metallic biliary stent. 2. Well-circumscribed echogenic foci posteriorly in the spleen is overtly benign and may represent a hemangioma. 3. Multiple right renal cortical cysts. 4. Cholecystectomy Eliud Lala MD Physical Exam HEENT: normocephalic; atraumatic; no jaundice. Throat is clear. NECK: Neck is supple, no JVD, no lymphadenopathy. CHEST: Chest is clear to auscultation and percussion. CARDIAC: Regular rate and rhythm with no murmur gallop or rubs. ABDOMEN: Soft, nondistended, diffused tenderness; no hepatosplenomegaly; bowel sounds are present in all four quadrants. EXTREMITIES: No clubbing, cyanosis, or edema. SKIN: Normal; no rash; no jaundice. SKIN CARE TECHNICIAN: No focal deficits; alert and oriented times three. (Alex Hanks INPATIENT PHARMACIST) Assessment and Plan Plan - choledocholithiasis. S/P ERCP/stone extraction (06/10/17) --> The patient was noted to have a GJ tube which was in good position but the J portion was obscuring vision of the ampulla so this was pulled into the stomach the patient is noted to have had prior sphincterotomy and has a metal stent in the bile duct we were able to obtain easy cannulation of the common bile duct but the stent was clubbed up with sludge and stones and so using an 8 mm balloon we were able to clean out the distal CBD and clean out the metal stent then this was lavaged and then further cleaning was performed and then an obstructive cholangiogram finally we were able to clear the common bile duct of all filling defects and at this point the procedure was terminated. S/p G/J tube repositioning by IR on (06/10/17). LFTs are trending down today. Patient is doing good. Labs revealed elevated LFTs Lipase 60. Normal WBC, hgb of 10, she does have chronic anemia. Liver Ultrasound 06/08/17 1. Multiple echogenic foci in the left hepatic lobe and hepatic dome do not show shadowing and may represent pneumobilia. Patient has a history of a metallic biliary stent. 2. Well- circumscribed echogenic foci posteriorly in the spleen is overtly benign and may represent a hemangioma. 3. Multiple right renal cortical cysts. 4. Cholecystectomy MRCP done and that showed significant dilatation of extrahepatic biliary with extensive filling defects suggesting sludge, stones ro blood lot. Renal cysts, salable 19 mm splenic nodule consistent with hemangioma. She denies fever, chills, hematemesis, hematochezia or melena. She was placed on Zosyn. - Chronic recurrent pancreatitis, Idiopathic. S/P extensive workup for her recurrent pancreatitis with MRCP, ERCP with sphincterotomy for suspected sphincter dysfunction vs. microlithiasis, Ig4 level, EUS, Triglycerides, and tertiary evaluation. She had an ERCP/EUS (02/12/16) and this revealed unremarkable EUS of the Pancrease, a stent was noted in the CBD but otherwise was normal, ampulla with prior sphincterotomy, otherwise normal, distal CBD stricture, smooth benign, this was dilated with CRE balloon 10mm post dilatation still significant narrowing and as such a full cover 10fr 6 cm wall stent was placed, positioning satisfactory, prior to stent placement a 15 mm balloon was used to clear the bile duct and no stones were noted, normal intrahepatic biliary tree- not dilated, gallbladder not seen, normal esophagus, hiatal hernia, large antral ulcer, clean based, GJ tube, this was dislodged and at the end was repositioned into the duodenum, normal duodenum. - Anemia- No active bleeding hh stable . EGD/Colonoscopy (03/11/17) Large hiatal hernia, Antral nodule/mass, Colon polyp, BX revealed moderately active chronic antral gastritis with focal ulceration, no H-pylori, colon polyp bx revealed tubular adenoma. She then was evaluated by EGD/EUS on ( 04/15/17 ) large hiatal hernia, G-J tube, antral mas ulcerated 2 X 1 Cm, Eus revealed antral mass appears superficial mucosal done not infiltrate, MP intact, the Pancrease appeared unremarkable, normal PD, no lymphadenopathy , bx of the stomach revealed inflammatory polyp. - Acute on chronic renal disease. PLAN: - Clear liquid diet - S/p ERCP/stones extractions as above - PPI - Okay to DC from GI stand point - F/u with GI in 2 weeks - Pt seen and examined by Dr. Ortega and myself and this note is written on his behalf (Alex Hanks) Physician Comments Patient seen and examined Agree with above Continue with current supportive care Monitor labs (Gregg Ortega MD) Alex Hanks Jun 11, 2017 13:23 Gregg Ortega MD Jun 11, 2017 22:18
[2017-06-11 15:31] VITALS: BP 132/62; PULSE 73; RESP 16; TEMP 98.6; O2SAT 100
[2017-06-11] MEDS ORDERED: NORC5TAB PO (16:49)
== END 2017-06-11 17:21 | disposition home or self-care (01) ==
LOC: NEPC 12:15 → NEDA 16:40 → NEPFCDU 19:03
PROVIDERS: ADMIT Hospitalist; ATTEND Hospitalist
DX: R79.89 Other specified abnormal findings of blood chemistry (principal); R10.11 Right upper quadrant pain; N17.9 Acute kidney failure, unspecified; Z43.1 Encounter for attention to gastrostomy; R00.0 Tachycardia, unspecified; R07.89 Other chest pain; R94.31 Abnormal electrocardiogram [ECG] [EKG]; R91.8 Other nonspecific abnormal finding of lung field; I12.9 Hypertensive chronic kidney disease with stage 1 through stage 4 chronic kidney disease, or unspecified chronic kidney disease; N18.4 Chronic kidney disease, stage 4 (severe); I48.91 Unspecified atrial fibrillation; E78.00 Pure hypercholesterolemia, unspecified; K21.9 Gastro-esophageal reflux disease without esophagitis; K86.1 Other chronic pancreatitis; K80.51 Calculus of bile duct without cholangitis or cholecystitis with obstruction; N28.1 Cyst of kidney, acquired; N28.9 Disorder of kidney and ureter, unspecified; D64.9 Anemia, unspecified; G89.29 Other chronic pain; F41.9 Anxiety disorder, unspecified; M19.90 Unspecified osteoarthritis, unspecified site; Z79.899 Other long term (current) drug therapy; Z96.652 Presence of left artificial knee joint
CPT/HCPCS: 00740; 43264; 49452; 71010; 74181; 74330; 76377; 76705; 80053; 82550; 83605; 83690; 84484; 85007; 85025; 85027; 87040; 93005; 99152; 99285; C1769; C1874; C1887; C1894; G0378; J2250; J2270; J2405; J2543; J3010; J7030; Q9967

== ENCOUNTER 2017-07-09 13:25 | Emergency (ER) | payer MEDICARE ==
[~2017-07-09] VITALS: Ht 167.6 cm; Wt 75.0 kg
[~2017-07-09 13:25] MED LIST changes: -JEVILIQ12 JT
[2017-07-09 13:28] VITALS: BP 129/70; PULSE 84; RESP 15; TEMP 98.4; O2SAT 98
[2017-07-09 14:44] VITALS: BP 129/69; PULSE 78; RESP 19; TEMP 98.4; O2SAT 99
[2017-07-09] MEDS ORDERED: MAGNESIUM CITRATE SOLN 300 ML BTL PO ONE (15:15)
[2017-07-09] MEDS ORDERED: GLYCERIN ADULT 2 GM SUPP RECTAL ONE (15:15)
[2017-07-09] MEDS ORDERED: ONDANSETRON HCL 4 MG/2 ML VIAL ONE (16:18)
[2017-07-09] MEDS ORDERED: ONDANSETRON ODT 4 MG TAB PO ONE (16:30)
[2017-07-09 16:38] VITALS: BP 136/64; PULSE 79; RESP 18; O2SAT 100
--- NOTE | 2017-07-09 17:10 | PD ---
HPI Chief Complaint: GI Complaint Time Seen by Provider: 14:57 Travel History International Travel<30 days: No Contact w/Intl Traveler<30days: No Traveled to known affect area: No History of Present Illness HPI 81 year-old woman presents to the emergency room with abdominal pain. She's had some constipation as well. She's on pain medicines constantly for pancreatitis. She has a GJ tube for pancreatitis. She does eat some. She had abdominal for several days. She feels like she has to have bowel movement but can't. She otherwise has been feeling generally well and healthy. No vomiting. No other complaints. History Past Medical History Narrative Medical Hypertension on chronic abdominal pain Tetanus Vaccination: Unknown Menopausal: Yes : 2 Para: 2 Social History Alcohol Use: No Tobacco Use: No Allergies-Medications (Allergen,Severity, Reaction): Coded Allergies: No Known Allergies (Verified , 07/09/17) Reported Meds & Prescriptions Reported Meds & Active Scripts Active Maxie (Hydrocodone-Acetaminophen) 5-325 mg Tab 1 Tab PO Q4H PRN Zofran Odt (Ondansetron Odt) 4 Mg Tab 4 Mg SL Q8HR PRN May substitute non-ODT form. Reported Sucralfate 1 Gm Tab 1 Gm PO TID on empty stomach Cartia Xt (Diltiazem ER 24 HR) 120 Mg Caper 120 Mg PO DAILY Pantoprazole (Pantoprazole Sodium) 40 Mg Tab 40 Mg PO BID Creon (Amylase/Lipase/Protease) 12,000-38,000-60,000 Units Cap 1 Cap PO TIDPC Metoprolol Tartrate 25 Mg Tab 25 Mg PO BID Review of Systems Except as stated in HPI: all other systems reviewed are Neg Physical Exam Narrative GENERAL: Well-appearing 81 year-old woman, no acute distress SKIN: Focused skin assessment warm/dry. HEAD: Atraumatic. Normocephalic. EYES: Pupils equal and round. No scleral icterus. No injection or drainage. ENT: No nasal bleeding or discharge. Mucous membranes pink and moist. NECK: Trachea midline. No JVD. CARDIOVASCULAR: Regular rate and rhythm. No murmur appreciated. RESPIRATORY: No accessory muscle use. Clear to auscultation. Breath sounds equal bilaterally. GASTROINTESTINAL: Abdomen soft, non-tender, nondistended. Hepatic and splenic margins not palpable. RECTAL: Hard stool in the rectal vault. Disimpacted. MUSCULOSKELETAL: No obvious deformities. No clubbing. No cyanosis. No edema. NEUROLOGICAL: Awake and alert. No obvious cranial nerve deficits. Motor grossly within normal limits. Normal speech. PSYCHIATRIC: Appropriate mood and affect; insight and judgment normal. Data Data Last Documented VS Vital Signs Date Time Temp Pulse Resp B/P (MAP) Pulse Ox O2 Delivery O2 Flow Rate FiO2 07/09/17 16:38 79 18 136/64 (88) 100 07/09/17 14:44 98.4 Room Air Orders Orders Magnesium Citrate Liq (Citroma Liq) (07/09/17 15:15) Glycerin Adult Supp (Glycerin Adult Supp (07/09/17 15:15) Ondansetron Odt (Zofran Odt) (07/09/17 16:30) Ondansetron Inj (Zofran Inj) (07/09/17 16:18) MDM Medical Decision Making Medical Screen Exam Complete: Yes Emergency Medical Condition: Yes Differential Diagnosis Constipation Narrative Course Medical decision making This 81 year-old woman who hadn't fecal impaction and constipation related to chronic opiate use. Disimpacted. Good response to MiraLAX and mag citrate. Diagnosis Primary Impression: Constipation Patient Instructions: General Instructions Med/Other Pt SpecificInfo: No Change to Meds Disposition: 01 DISCHARGE HOME Condition: Stable Sanford Gale MD Jul 09, 2017 17:10
[2017-07-09 17:42] VITALS: BP 136/64
== END 2017-07-09 17:42 | disposition home or self-care (01) ==
LOC: NEPD 13:25
DX: K59.00 Constipation, unspecified (principal); I10 Essential (primary) hypertension; K85.90 Acute pancreatitis without necrosis or infection, unspecified; Z79.899 Other long term (current) drug therapy
CPT/HCPCS: 99283; J2405

== ENCOUNTER 2017-07-27 10:21 | Day surgery (SDC) | payer MEDICARE ==
[~2017-07-27] VITALS: Ht 167.6 cm; Wt 68.2 kg
[2017-07-27] MEDS ORDERED: IOHEXOL 350 MG/ML 50 ML BTL (for RAD DIAG) ONE (10:22)
[2017-07-27 10:53] VITALS: BP 128/74; PULSE 65; RESP 18; TEMP 98.4; O2SAT 94
[2017-07-27] MEDS ORDERED: MIDAZOLAM HCL 2 MG/2 ML VIAL ONE (10:58)
[2017-07-27] MEDS ORDERED: SODIUM CHLORIDE 0.9% 1000 ML IV SCH (11:00)
[2017-07-27 11:55] VITALS: BP 128/74; PULSE 65; RESP 18; TEMP 98.4; O2SAT 94
[2017-07-27 12:10] VITALS: BP 121/71; PULSE 59; RESP 18; O2SAT 99
--- NOTE | 2017-07-27 12:11 | PD.RAD ---
Post Procedure Progress Note Pre Procedure Diagnosis: (1) Feeding tube obstruction Post Procedure Diagnosis: (1) Feeding tube obstruction Procedure Date: Jul 27, 2017 Supervising Radiologist: Bhavin Montemayor Proceduralist/Assist: RT Carolynn(R) Anesthesia: Conscious Sedation Plan of Activity Patient to Unit: ROPU Patient Condition: Good Additional Comments: Exchange of GJ cath See PACS Report for procedural detail/treatment Bhavni Montemayor MD Jul 27, 2017 12:11 pm
--- NOTE | 2017-07-27 12:13 | RADRPT ---
EXAM DATE/TIME: 07/27/2017 11:07 [facility] COMPARISON: CHANGE OF GJ-TUBE CATHETER, June 10, 2017, 15:15. INDICATIONS : Patient presents with clogged gastrojejunal tube in need of exchange for nutrition. MEDICAL HISTORY : HTN Pancreatitis A fib GERD CKD GERD Arthritis High cholesterol SURGICAL HISTORY : Right eye cataract Georgette GJ tube placement biliary stent Left knee replacement Sphinterotomy Hemorrhoidectomy ENCOUNTER: Subsequent ACUITY: 4 - 6 days PAIN SCORE: 7/10 LOCATION: Left upper quadrant FLUORO TIME: 1.4 minutes IMAGE SERIES: SEDATION TIME: 15 minutes CONTRAST: 20 cc Omnipaque (iohexol) 350 MEDICATION(S): 1.) 1 mg midazolam (Versed) IV 2.) 75 mcg Fentanyl (Sublimaze) IV DEVICE(S): 1.) 22 [place] Transgastric tube PROCEDURE : 1. Fluoroscopically guided gastrojejunostomy tube exchange. 2. Conscious sedation with continuous EKG and oximetry monitoring. The risks, benefits and alternatives to the procedure were explained and verbal and written consent w as obtained. The site was prepped in sterile fashion. Full sterile technique was used, including ca p, mask, sterile gloves and gown and a large sterile sheet. Hand hygiene and 2% chlorhexidine and/or betadine/alcohol prep was utilized per protocol for cutaneous antisepsis. The skin and subcutaneous tissues were infiltrated with local anesthetic solution. With fluoroscopic guidance a guidewire was passed through the previous gastrojejunostomy tube and a f resh tube was placed over the guidewire. The balloon was inflated with appropriate volume of saline. Injection of positive contrast demonstrates good position of the gastric and jejunal lumens of the tube. Conscious sedation was performed with the prescribed dosages and duration as above in the presence of an independent trained radiology nurse to assist in the monitoring of the patient. EKG and oximetry remained stable throughout the procedure. The patient tolerated the procedure well and there were n o complications. The patient was sent to post anesthesia recovery in stable condition. CONCLUSION: Uncomplicated gastrojejunostomy tube exchange as above. Bhavin Montemayor MD on July 27, 2017 at 12:09 Board Certified Radiologist. This report was verified electronically.
[2017-07-27 12:40] VITALS: BP 121/71; PULSE 56; RESP 18; O2SAT 99
== END 2017-07-27 13:45 | disposition home or self-care (01) ==
LOC: HROP 10:21 → HRIP 10:22 → HROP 13:45
PROVIDERS: ATTEND Internal Medicine Gastroenterology
DX: K94.23 Gastrostomy malfunction (principal); Y83.3 Surgical operation with formation of external stoma as the cause of abnormal reaction of the patient, or of later complication, without mention of misadventure at the time of the procedure; I12.9 Hypertensive chronic kidney disease with stage 1 through stage 4 chronic kidney disease, or unspecified chronic kidney disease; N18.9 Chronic kidney disease, unspecified; I48.91 Unspecified atrial fibrillation; E78.00 Pure hypercholesterolemia, unspecified; K21.9 Gastro-esophageal reflux disease without esophagitis
CPT/HCPCS: 49452; C1769; C1874; C1887; J2250; J3010; Q9967

== ENCOUNTER 2017-08-02 12:09 | Day surgery (SDC) | payer MEDICARE | END 2017-08-02 12:55 | disposition home or self-care (01) | LOC: HROP 12:09 → HRIP 12:10 → HROP 12:55 | PROVIDERS: ATTEND Internal Medicine Gastroenterology | DX: K94.23 Gastrostomy malfunction (principal) | CPT/HCPCS: C1769; G0463; 99213 ==

== ENCOUNTER 2017-08-17 07:10 | Day surgery (SDC) | payer MEDICARE ==
[2017-08-17 07:22] VITALS: BP 115/71; PULSE 75; RESP 20; TEMP 98.2; O2SAT 93
[2017-08-17] MEDS ORDERED: SODIUM CHLORIDE 0.9% 1000 ML IV SCH (07:45)
[2017-08-17] MEDS ORDERED: NIFE60TA58 PO (07:46)
[2017-08-17] MEDS ORDERED: MAGN311C3 CHEW (07:46)
== END 2017-08-17 08:00 | disposition home or self-care (01) ==
LOC: HROP 07:10 → HRIP 07:10 → HROP 08:00
PROVIDERS: ATTEND Internal Medicine Gastroenterology
DX: Z43.1 Encounter for attention to gastrostomy (principal); Z78.9 Other specified health status
CPT/HCPCS: 99211; G0463

== ENCOUNTER 2017-09-18 11:26 | Emergency (ER) | payer MEDICARE ==
[~2017-09-18 11:26] MED LIST changes: +MAGN311C3 CHEW; +NIFE60TA58 PO
[2017-09-18 11:29] VITALS: BP 143/62; PULSE 66; RESP 12; TEMP 98.7; O2SAT 99
[2017-09-18 12:04] VITALS: BP 148/77; PULSE 66; RESP 17; O2SAT 99
[2017-09-18] MEDS ORDERED: [UNRECOGNIZED DRUG - OTHER] PO (12:11)
[2017-09-18] MEDS ORDERED: PATI1POW3 PO (12:12)
[2017-09-18] MEDS ORDERED: SODIUM CHLORIDE 0.9% FLUSH 10 ML FLUSH IVF PRN (12:15)
[2017-09-18] MEDS ORDERED: MECLIZINE HCL 25 MG TAB PO ONE (12:15)
--- NOTE | 2017-09-18 12:17 | PD ---
HPI Chief Complaint: Dizziness Time Seen by Provider: 11:53 Travel History International Travel<30 days: No Contact w/Intl Traveler<30days: No Traveled to known affect area: No History of Present Illness HPI 81-year-old female came to the emergency room with history of dizziness for past 3 days. Patient describes a dizziness like she is drunk and going to fall. Denies any near-syncopal or syncopal episode. Patient did not fall but says that she feels like she is leaning towards her left when she stands up and starts to walk. States it is better when she lays down. No history of headache. She does have some ringing in her ears and nausea. No history of diminished hearing. She has never had this kind of sensation in the past. She says it's been getting worse. No history of chest pain. Patient has history of chronic pancreatitis and has a G-tube in to help her feet for past 1 year. Vital signs were otherwise stable. [facility] Past Medical History Narrative Medical List of her past medical, surgical, social and family history is reviewed from the nursing note. Arthritis: Yes Asthma: No Atrial Fibrillation: Yes (HX YES PER PATIENT "NO") Autoimmune Disease: No Blood Disorders: No Anxiety: No Depression: No Heart Rhythm Problems: Yes Cancer: No Cardiovascular Problems: Yes High Cholesterol: Yes Chemotherapy: No Chest Pain: Yes Congestive Heart Failure: No COPD: No Cerebrovascular Accident: No Diabetes: No Diminished Hearing: No Endocrine: No Gastrointestinal Disorders: Yes (HIATAL HERNIA) GERD: Yes Glaucoma: No Genitourinary: No Headaches: No Hepatitis: No Hiatal Hernia: Yes Hypertension: Yes Immune Disorder: No Implanted Vascular Access Dvce: Yes Kidney Stones: No Medical other: Yes (arthritis,neck and back problems) Musculoskeletal: No Neurologic: No Psychiatric: No Reproductive: No Respiratory: No Migraines: No Pancreatitis: Yes (chronic) Radiation Therapy: No Renal Failure: No Seizures: No Sickle Cell Disease: No Sleep Apnea: No Thyroid Disease: No Ulcer: No Menopausal: Yes : 2 Para: 2 Past Surgical History Abdominal Surgery: Yes (cholecystectomy, sphincterotomy, PEG placed) Arteriovenous Shunt: No Body Medical Devices: stent in abd Cardiac Surgery: No Cholecystectomy: Yes (2012) Ear Surgery: No Endocrine Surgery: No Eye Surgery: Yes Genitourinary Surgery: Yes (HEMORRHOIDECTOMY) Gynecologic Surgery: No Hysterectomy: Yes Insulin Pump: No Joint Replacement: Yes (TKR LEFT KNEE) Neurologic Surgery: No Oral Surgery: No Pacemaker: No Thoracic Surgery: No Other Surgery: Yes (GROWTH REMOVED FROM LEFT WRIST/Sinus) Social History Alcohol Use: No Tobacco Use: No Substance Use: No Allergies-Medications (Allergen,Severity, Reaction): Coded Allergies: No Known Allergies (Verified Adverse Reaction, Unknown, 09/18/17) Comments List of her allergies reviewed from the nursing note. Reported Meds & Prescriptions Reported Meds & Active Scripts Active Meclizine (Meclizine HCl) 25 Mg Tab 25 Mg PO TID PRN 5 Days Macrobid (Nitrofurantoin Monoh/Nitrofur Macro) 100 Mg Cap 100 Mg PO BID 10 Days [place] (Hydrocodone-Acetaminophen) 5-325 mg Tab 1 Tab PO Q4H PRN Reported [place] (Patiromer Sorbitex Calcium) 16.8 Gm Packet Unknown Dose PO HS Presley Milk of Magnesia (Magnesium Hydroxide) 311 Mg Chew 2 Tab CHEW DAILY PRN Nifedipine ER 24 HR (Nifedipine) 60 Mg Tab 60 Mg PO DAILY Sucralfate 1 Gm Tab 1 Gm PO TID on empty stomach Cartia Xt (Diltiazem ER 24 HR) 120 Mg Caper 120 Mg PO DAILY Pantoprazole (Pantoprazole Sodium) 40 Mg Tab 40 Mg PO BID Creon (Amylase/Lipase/Protease) 12,000-38,000-60,000 Units Cap 1 Cap PO TIDPC Metoprolol Tartrate 25 Mg Tab 25 Mg PO BID Narrative Medication List of her home medications reviewed from the nursing note. Review of Systems Except as stated in HPI: all other systems reviewed are Neg Gastrointestinal: Positive: Nausea Neurologic: Positive: Dizziness Physical Exam Narrative GENERAL: Awake, alert, elderly, no obvious distress SKIN: Focused skin assessment warm/dry. HEAD: Atraumatic. Normocephalic. EYES: Pupils equal and round. No scleral icterus. No injection or drainage. ENT: No nasal bleeding or discharge. Mucous membranes pink and moist. NECK: Trachea midline. No JVD. CARDIOVASCULAR: Regular rate and rhythm. No murmur appreciated. RESPIRATORY: No accessory muscle use. Clear to auscultation. Breath sounds equal bilaterally. GASTROINTESTINAL: Abdomen soft, non-tender, nondistended. Hepatic and splenic margins not palpable. MUSCULOSKELETAL: No obvious deformities. No clubbing. No cyanosis. No edema. NEUROLOGICAL: Awake and alert. No obvious cranial nerve deficits. Motor grossly within normal limits. Normal speech. NIH stroke score 0 PSYCHIATRIC: Appropriate mood and affect; insight and judgment normal. Data Data Last Documented VS Vital Signs Date Time Temp Pulse Resp B/P (MAP) Pulse Ox O2 Delivery O2 Flow Rate FiO2 09/18/17 15:15 09/18/17 12:04 66 17 99 Room Air 09/18/17 11:29 98.7 Orders Orders Electrocardiogram (09/18/17 12:08) Prothrombin Time / Inr (Pt) (09/18/17 12:08) Complete Blood Count With Diff (09/18/17 12:08) Basic Metabolic Panel (Bmp) (09/18/17 12:08) Troponin I (09/18/17 12:08) Urinalysis - C+S If Indicated (09/18/17 12:08) Ct Brain W/O Iv Contrast(Rout) (09/18/17 12:08) Chest, Single Ap (09/18/17 12:08) Ecg Monitoring (09/18/17 12:08) Iv Access Insert/Monitor (09/18/17 12:08) Oximetry (09/18/17 12:08) Sodium Chloride 0.9% Flush (Ns Flush) (09/18/17 12:15) Meclizine (Antivert) (09/18/17 12:15) Sodium Chlor 0.9% 1000 Ml Inj (Ns 1000 M (09/18/17 13:30) Urine Culture (09/18/17 13:05) Nitrofurantoin Monohyd Macrocr (Macrobid (09/18/17 13:45) Ed Discharge Order (09/18/17 15:00) Labs Laboratory Tests Test 09/18/17 12:19 09/18/17 12:50 09/18/17 13:05 Prothrombin Time 11.5 SEC Prothromb Time International Ratio 1.0 RATIO Blood Urea Nitrogen 47 MG/DL Creatinine 2.68 MG/DL Random Glucose 152 MG/DL Calcium Level 9.1 MG/DL Sodium Level 142 MEQ/L Potassium Level 4.6 MEQ/L Chloride Level 109 MEQ/L Carbon Dioxide Level 21.3 MEQ/L Anion Gap 12 MEQ/L Estimat Glomerular Filtration Rate 21 ML/MIN Troponin I LESS THAN 0.02 NG/ML White Blood Count 8.8 TH/MM3 Red Blood Count 4.08 MIL/MM3 Hemoglobin 11.4 GM/DL Hematocrit 35.9 % Mean Corpuscular Volume 88.0 FL Mean Corpuscular Hemoglobin 28.1 PG Mean Corpuscular Hemoglobin Concent 31.9 % Red Cell Distribution Width 14.7 % Platelet Count 287 TH/MM3 Mean Platelet Volume 8.8 FL Neutrophils (%) (Auto) 71.0 % Lymphocytes (%) (Auto) 20.7 % Monocytes (%) (Auto) 4.3 % Eosinophils (%) (Auto) 2.9 % Basophils (%) (Auto) 1.1 % Neutrophils # (Auto) 6.2 TH/MM3 Lymphocytes # (Auto) 1.8 TH/MM3 Monocytes # (Auto) 0.4 TH/MM3 Eosinophils # (Auto) 0.3 TH/MM3 Basophils # (Auto) 0.1 TH/MM3 CBC Comment DIFF FINAL Differential Comment Urine Color LIGHT-YELLOW Urine Turbidity HAZY Urine pH 5.5 Urine Specific [place] 1.014 Urine Protein TRACE mg/dL Urine Glucose (UA) NEG mg/dL Urine Ketones NEG mg/dL Urine Occult Blood MOD Urine Nitrite NEG Urine Bilirubin NEG Urine Urobilinogen LESS THAN 2.0 MG/DL Urine Leukocyte Esterase LARGE Urine RBC 22 /hpf Urine WBC 31 /hpf Urine WBC Clumps FEW Urine Squamous Epithelial Cells 2 /hpf Urine Transitional Epithelial Cells 1 /hpf Urine Bacteria OCC /hpf Urine Mucus FEW /lpf Microscopic Urinalysis Comment CATH-CULTURE IND MDM Medical Decision Making Medical Screen Exam Complete: Yes Emergency Medical Condition: Yes Medical Record Reviewed: Yes Interpretation(s) Twelve-lead EKG was reviewed by me. Normal sinus rhythm, normal axis, nonspecific ST-T wave changes, bradycardia. Heart rate of 57 bpm. Differential Diagnosis CVA, BPV, TIA Narrative Course 1:51 PM blood test results of back and patient has renal failure. However upon trending the labs back and has been noticed that her creatinine today he is at her baseline. CT of her head is within normal limits. Patient was given meclizine and 1 L of IV fluid bolus. UA suggestive of UTI. I've given her dose of Macrobid as well. 3:01 PM patient was ambulated just now when she walked fine with her cane. She says she feels back to normal. I'm comfortable discharging her home. Procedures EKG Prior to Arrival: No Diagnosis Primary Impression: Dizziness Additional Impressions: BPV (benign positional vertigo) Qualified Codes: H81.12 - Benign paroxysmal vertigo, left ear UTI (urinary tract infection) Qualified Codes: N39.0 - Urinary tract infection, site not specified Referrals: Primary Care Physician 3 days Additional Instructions: Please return to the ER if the condition worsens or any other new concerns. Take the medication as per the prescription direction. You should not be driving. See her primary care next couple days and get clearance from a primary care. Med/Other Pt SpecificInfo: Prescription(s) given Scripts Meclizine (Meclizine) 25 Mg Tab 25 MG PO TID Y for VERTIGO for 5 Days, TAB 0 Refills Prov: Brandee Chicas MD 09/18/17 Nitrofurantoin Monohydrate Macrocrystals (Macrobid) 100 Mg Cap 100 MG PO BID for Infection for 10 Days, #20 CAP 0 Refills Prov: Brandee Chicas MD 09/18/17 Disposition: 01 DISCHARGE HOME Condition: Stable Brandee Chicas MD Sep 18, 2017 12:17
--- NOTE | 2017-09-18 12:38 | RADRPT ---
EXAM DATE/TIME: 09/18/2017 12:24 [facility] COMPARISON: CHEST SINGLE AP, June 08, 2017, 13:05. INDICATIONS : Syncope. Possible stroke. MEDICAL HISTORY : Pancreatitis. Hypertension SURGICAL HISTORY : Cholecystectomy. Gastric tube. ENCOUNTER: Initial ACUITY: 1 day PAIN SCORE: Non-responsive. LOCATION: Bilateral chest FINDINGS: Stable linear peripheral opacities in the left lower lobe. No new focal pleural or parenchymal opacit ies. Cardiomediastinal contours are stable. Remainder of the exam is unchanged. CONCLUSION: 1. Stable left lower lobe atelectasis/scarring. 2. No acute abnormality or significant interval change. Bhavin Montemayor MD on September 18, 2017 at 12:35 Board Certified Radiologist. This report was verified electronically.
[2017-09-18 12:39] LABS: PROTHROMBIN TIME - PATIENT 11.5 SEC (9.8-11.6)
--- NOTE | 2017-09-18 12:49 | RADRPT ---
EXAM DATE/TIME: 09/18/2017 12:33 [facility] COMPARISON: Report only CT BRAIN W/O CONTRAST, May 26, 2012, 12:49. INDICATIONS : Dizziness. RADIATION DOSE: 28.23 CTDIvol (mGy) MEDICAL HISTORY : Cardiovascular disease. Hypertension. SURGICAL HISTORY : Hysterectomy. ENCOUNTER: Initial ACUITY: 1 day PAIN SCALE: 0/10 LOCATION: cranial TECHNIQUE: Multiple contiguous axial images were obtained of the head. Using automated exposure control and adj ustment of the mA and/or kV according to patient size, radiation dose was kept as low as reasonably a chievable to obtain optimal diagnostic quality images. DICOM format image data is available electro nically for review and comparison. FINDINGS: CEREBRUM: The ventricles are normal for age. No evidence of midline shift, mass lesion, hemorrhage or acute in farction. No extra-axial fluid collections are seen. POSTERIOR FOSSA: The cerebellum and brainstem are intact. The 4th ventricle is midline. The cerebellopontine angle i s unremarkable. EXTRACRANIAL: The visualized portion of the orbits is intact. SKULL: The calvaria is intact. No evidence of skull fracture. CONCLUSION: Negative noncontrast head CT. Luis E Hurtado MD on September 18, 2017 at 12:46 Board Certified Radiologist. This report was verified electronically.
[2017-09-18 12:59] LABS: AUTOMATED NEUTROPHIL # 6.2 TH/MM3 (1.8-7.7); BASOPHIL # 0.1 TH/MM3 (0-0.2); BASOPHIL % 1.1 % (0.0-2.0); EOSINOPHIL # 0.3 TH/MM3 (0-0.4); EOSINOPHIL % 2.9 % (0.0-4.0); HEMATOCRIT 35.9 % (35.0-46.0); HEMO FLAGS DIFF FINAL; LYMPH % 20.7 % (9.0-44.0); LYMPHOCYTE # 1.8 TH/MM3 (1.0-4.8); MEAN CORPUSCULAR HEMOGLOBIN 28.1 PG (27.0-34.0); MEAN CORPUSCULAR HGB CONC 31.9 % (32.0-36.0); MONO % 4.3 % (0.0-8.0); PLATELET COUNT 287 TH/MM3 (150-450); RED BLOOD COUNT 4.08 MIL/MM3 (4.00-5.30); RED CELL DISTRIBUTION WIDTH 14.7 % (11.6-17.2); WHITE BLOOD COUNT 8.8 TH/MM3 (4.0-11.0)
[2017-09-18 13:11] LABS: ANION GAP 12 MEQ/L (5-15); BICARBONATE 21.3 MEQ/L (21.0-32.0); BLOOD UREA NITROGEN 47 MG/DL (7-18); CHLORIDE 109 MEQ/L (98-107); GLOMERULAR FILTRATION RATE 21 ML/MIN (>89); POTASSIUM 4.6 MEQ/L (3.5-5.1); SODIUM (NA) 142 MEQ/L (136-145)
[2017-09-18] MEDS ORDERED: SODIUM CHLOR 0.9% 1000 ML INJ 1,000 ML IV ONE (13:30)
[2017-09-18 13:35] LABS: BACTERIA, URINE OCC /hpf; BLOOD, URINE MOD (NEG); COMMENT (UR) CATH-CULTURE IND; CULTURE IF INDICATED CATH CULTURE IND; GLUCOSE,URINE NEG (NEG); KETONE, URINE NEG (NEG); MUCUS URINE FEW /lpf (OCC); NITRITE,URINE NEG (NEG); PH, URINE 5.5 (5.0-8.5); SQUAMOUS EPITHELIAL CELL URINE 2 /hpf (0-5); TRANSITIONAL EPI CELLS, URINE 1 /hpf; URINE COLOR LIGHT-YELLOW (YELLW/STRAW)
[2017-09-18] MEDS ORDERED: NITROFURANTOIN MONOHYD MACROCR 100 MG CAP PO ONE (13:45)
[2017-09-18] MEDS ORDERED: MECL-62 PO (15:03)
[2017-09-18] MEDS ORDERED: MACR100C2 PO (15:03)
--- NOTE | 2017-09-19 08:57 | EKG ---
Date Performed: 09/18/2017 Time Performed: 12:18:04 PTAGE: 81 years EKG: SINUS BRADYCARDIA POSSIBLE RIGHT VENTRICULAR CONDUCTION DELAY Compared to prior tracing no significant change BORDERLINE ECG PREVIOUS TRACING : 06/08/17 @ 1229 DOCTOR: Jacob Bernal Interpretating Date/Time 09/19/2017 08:56:23
== END 2017-09-18 15:15 | disposition home or self-care (01) ==
LOC: NEPC 11:26
DX: R42 Dizziness and giddiness (principal); H81.12 Benign paroxysmal vertigo, left ear; N39.0 Urinary tract infection, site not specified; R94.31 Abnormal electrocardiogram [ECG] [EKG]; K86.1 Other chronic pancreatitis; I10 Essential (primary) hypertension
CPT/HCPCS: 70450; 71010; 80048; 81001; 84484; 85025; 85610; 87086; 93005; 96360; 99285; J7030

== ENCOUNTER 2017-11-17 08:09 | Day surgery (SDC) | payer MEDICARE ==
[~2017-11-17] VITALS: Ht 167.6 cm; Wt 68.6 kg
[~2017-11-17 08:09] MED LIST changes: +MACR100C2 PO; +MECL-62 PO; +PATI1POW3 PO; -ZOFR4TAB3 SL
[2017-11-17] MEDS ORDERED: IOHEXOL 350 MG/ML 50 ML BTL (for RAD DIAG) G-TUBE ONE (08:10)
[2017-11-17 08:24] VITALS: BP 126/66; PULSE 74; RESP 20; TEMP 98.4; O2SAT 95
[2017-11-17] MEDS ORDERED: SODIUM CHLORIDE 0.9% 1000 ML IV SCH (08:45)
--- NOTE | 2017-11-17 11:37 | PD.RAD ---
Post Procedure Progress Note Pre Procedure Diagnosis: (1) Feeding tube obstruction Post Procedure Diagnosis: (1) Feeding tube obstruction Procedure Date: Nov 17, 2017 Supervising Radiologist: Remigio Tabor Estimated blood loss: None Anesthesia: Local Plan of Activity Patient to Unit: ROPU Patient Condition: Good Additional Comments: G/J tube change through the existing tract without difficulty. New catheter verified in good position OK for use. Full dictated report to follow See PACS Report for procedural detail/treatment Remigio Tabor MD Nov 17, 2017 11:37
[2017-11-17 11:40] VITALS: BP 144/78; PULSE 63; RESP 16; TEMP 97.4; O2SAT 91
--- NOTE | 2017-11-17 14:06 | RADRPT ---
EXAM DATE/TIME: 11/17/2017 11:40 [facility] COMPARISON: CHANGE OF GJ-TUBE CATHETER, July 27, 2017, 11:07. INDICATIONS : Patient presents with clogged GJ tube in need of exchange. MEDICAL HISTORY : HTN, Recurrent pancreatitis, Gastroparesis, GERD, HLD, CKD Stage 3, A-Fib SURGICAL HISTORY : Cholecystectomy, Multiple GJ tube exchanges, Sphincterotomy, Biliary stent, Celiac plexus block, ERCP ENCOUNTER: Subsequent ACUITY: 2 days PAIN SCORE: 0/10 FLUORO TIME: 1.5 minutes IMAGE SERIES: 2 CONTRAST: 15 cc Omnipaque (iohexol) 350 DEVICE(S): 1.) 22 [place] Transgastric tube PROCEDURE : 1. Fluoroscopically guided gastrojejunostomy tube exchange. 2. Conscious sedation with continuous EKG and oximetry monitoring. The risks, benefits and alternatives to the procedure were explained and verbal and written consent w as obtained. The site was prepped in sterile fashion. Full sterile technique was used, including ca p, mask, sterile gloves and gown and a large sterile sheet. Hand hygiene and 2% chlorhexidine and/or betadine/alcohol prep was utilized per protocol for cutaneous antisepsis. The skin and subcutaneous tissues were infiltrated with local anesthetic solution. With fluoroscopic guidance a guidewire was passed through the previous gastrojejunostomy tube and a f resh tube was placed over the guidewire. The balloon was inflated with appropriate volume of saline. Injection of positive contrast demonstrates good position of the gastric and jejunal lumens of the tube. EKG and oximetry remained stable throughout the procedure. The patient tolerated the procedure well and there were no complications. The patient was sent to post anesthesia recovery in stable condition . CONCLUSION: Uncomplicated gastrojejunostomy tube exchange as above. Remigio Tabor MD on November 17, 2017 at 14:03 Board Certified Radiologist. This report was verified electronically.
== END 2017-11-17 12:10 | disposition home or self-care (01) ==
LOC: HROP 08:09 → HRIP 08:14 → HROP 12:10
PROVIDERS: ATTEND Internal Medicine Gastroenterology
DX: K94.23 Gastrostomy malfunction (principal); K31.84 Gastroparesis; K86.1 Other chronic pancreatitis; I12.9 Hypertensive chronic kidney disease with stage 1 through stage 4 chronic kidney disease, or unspecified chronic kidney disease; N18.3 Chronic kidney disease, stage 3 (moderate); I48.91 Unspecified atrial fibrillation; E78.5 Hyperlipidemia, unspecified; K21.9 Gastro-esophageal reflux disease without esophagitis
CPT/HCPCS: 49452; C1769; C1874; J7030; Q9967

== ENCOUNTER 2017-12-17 08:37 | Day surgery (SDC) | payer MEDICARE ==
[~2017-12-17 08:37] MED LIST changes: -MACR100C2 PO
[2017-12-17 08:55] VITALS: BP 121/62; PULSE 63; RESP 18; TEMP 98.3; O2SAT 95
== END 2017-12-17 09:40 | disposition home or self-care (01) ==
LOC: HROP 08:37 → HRIP 08:45 → HROP 09:40
PROVIDERS: ATTEND Internal Medicine Gastroenterology
DX: K94.23 Gastrostomy malfunction (principal); K86.1 Other chronic pancreatitis; I48.91 Unspecified atrial fibrillation; N28.9 Disorder of kidney and ureter, unspecified; R07.9 Chest pain, unspecified; K46.9 Unspecified abdominal hernia without obstruction or gangrene
CPT/HCPCS: 99213; G0463

== ENCOUNTER → 2018-01-03 | Day surgery (SDC) | payer MEDICARE ==
[~2018-01-03] VITALS: Ht 167.6 cm; Wt 70.2 kg
[~2018-01-03] MED LIST changes: +*ONDANSETRON 4 MG VIAL PERIprocedural Use ONLY ONE; +BUPIVACAINE HCL PF 0.5% 10 ML VIAL ONE; +CHLORHEXIDINE GLUCONATE 2 % 1 PACK (2 CLOTHS) TOPICAL PRN; +DO NOT ADM ANY ANTICOAGULANT DRUGS PRN; +HEPARIN SODIUM - IV 10,000 UNITS/10 ML VIAL ONE; +HEPARIN-NS/PF INJ 500 ML ONE; +LACTATED RINGER'S 1000 ML IV PRN; +LIDOCAINE HCL 1% PF 5 ML SYRINGE OTHER ONE; +METOPROLOL TARTRATE 25 MG TAB PO PRN; +MORPHINE SULFATE 4 MG/ML INJ IV PRN; -NIFE60TA58 PO; -PATI1POW3 PO; +PHENYLEPH/NS 1000 MCG/10 ML SYR IV ONE; +POVIDONE IODINE 5% (ANTISEPSIS KIT) 4 APPLICATIONS EACH NARE PRN; +PROPOFOL 200 MG/20 ML AMP IV ONE; +PROTAMINE SULFATE 50 MG/5 ML VIAL ONE; +SODIUM CHLORID 0.9% 500 ML IV PRN; +THROMBIN (TOPICAL) 20,000 UNIT VIAL ONE; +ceFAZolin 2 GM PREMIX 50 ML ONE; +ceFAZolin INJ 1,000 MG VIAL IV ONE; +ePHEDrine/NS 25 MG/5 ML SYRINGE IV ONE; +fentaNYL CITRATE 1000 MCG/20 ML VIAL ONE
--- NOTE | 2018-01-03 14:47 | RADRPT ---
EXAM DATE/TIME: 01/03/2018 14:23 [facility] COMPARISON: CHEST SINGLE AP, September 18, 2017, 12:24. INDICATIONS : Evaluate for pneumonia, pnuemothorax, or other communicable disease. Pre-op. MEDICAL HISTORY : Pancreatitis. Hypertension SURGICAL HISTORY : Cholecystectomy. Gastric tube. ENCOUNTER: Initial ACUITY: 1 day PAIN SCORE: 0/10 LOCATION: Bilateral chest FINDINGS: No new focal pleural or parenchymal opacities. Cardiomediastinal contours are within normal limits. O sseous structures are intact. Suspected biliary stent in place. CONCLUSION: 1. No acute abnormality or significant interval change. Bhavin Montemayor MD on January 03, 2018 at 14:44 Board Certified Radiologist. This report was verified electronically.
[2018-01-03 14:50] LABS: AUTOMATED NEUTROPHIL # 5.1 TH/MM3 (1.8-7.7); BASOPHIL # 0.1 TH/MM3 (0-0.2); BASOPHIL % 0.9 % (0.0-2.0); EOSINOPHIL # 0.3 TH/MM3 (0-0.4); EOSINOPHIL % 3.7 % (0.0-4.0); HEMATOCRIT 36.1 % (35.0-46.0); HEMOGLOBIN 12.2 GM/DL (11.6-15.3); LYMPH % 19.4 % (9.0-44.0); LYMPHOCYTE # 1.5 TH/MM3 (1.0-4.8); MEAN CELL VOLUME 86.1 FL (80.0-100.0); MEAN CORPUSCULAR HEMOGLOBIN 28.9 PG (27.0-34.0); MEAN CORPUSCULAR HGB CONC 33.6 % (32.0-36.0); MEAN PLATELET VOLUME 9.1 FL (7.0-11.0); MONO % 9.6 % (0.0-8.0); MONOCYTE # 0.7 TH/MM3 (0-0.9); NEUT % 66.4 % (16.0-70.0); PLATELET COUNT 312 TH/MM3 (150-450); RED CELL DISTRIBUTION WIDTH 15.5 % (11.6-17.2); WHITE BLOOD COUNT 7.7 TH/MM3 (4.0-11.0)
[2018-01-03 14:56] LABS: AMORPHOUS SEDIMENT, URINE RARE; BILIRUBIN, URINE SMALL (NEG); BLOOD, URINE NEG (NEG); GLUCOSE,URINE NEG (NEG); KETONE, URINE NEG (NEG); MUCUS URINE FEW /lpf (OCC); NITRITE,URINE NEG (NEG); PH, URINE 5.5 (5.0-8.5); SQUAMOUS EPITHELIAL CELL URINE 3 /hpf (0-5); URINE COLOR DARK-YELLOW (YELLW/STRAW); URINE LEUKOCYTE ESTERASE LARGE (NEG)
--- NOTE | 2018-01-03 15:05 | PD.VS.PN ---
Pre-operative Note Pre-operative diagnosis: Near ESRD, need for HD access Planned procedure: R BC AVF Interval History: Pt has been feeling well, no change in medical condition that would preclude OR Labs: Laboratory Results Test 01/03/18 14:25 Hematocrit 36.1 % (35.0-46.0) Hemoglobin 12.2 GM/DL (11.6-15.3) Mean Corpuscular Hemoglobin 28.9 PG (27.0-34.0) Mean Corpuscular Hemoglobin Concent 33.6 % (32.0-36.0) Mean Corpuscular Volume 86.1 FL (80.0-100.0) Mean Platelet Volume 9.1 FL (7.0-11.0) Platelet Count 312 TH/MM3 (150-450) Red Blood Count 4.20 MIL/MM3 (4.00-5.30) Red Cell Distribution Width 15.5 % (11.6-17.2) White Blood Count 7.7 TH/MM3 (4.0-11.0) Blood: none needed Imaging: Last Impressions Chest X-Ray 01/03/18 0000 Signed Impressions: Service Date/Time: Wednesday, January 03, 2018 14:23 - CONCLUSION: 1. No acute abnormality or significant interval change. Bhavin Montemayor MD Orders: NPO Ancef 2g IV OCTOR Post-operative destination: PACU Operative site marked: Yes Consent: Informed consent has been obtained from Park Larsen. I have explained the procedure in detail and discussed the risks, benefits, and potential complications. All questions have been answered. Patient contact information: Daughter [phone] Jonah Mayo MD Jan 03, 2018 15:05
[2018-01-03 15:07] LABS: BICARBONATE 21.8 MEQ/L (21.0-32.0); CALCIUM 8.9 MG/DL (8.5-10.1); CREATININE 2.63 MG/DL (0.50-1.00)
[2018-01-03 15:28] LABS: PROTHROMBIN TIME - PATIENT 10.4 SEC (9.8-11.6)
--- NOTE | 2018-01-03 16:46 | HHI.PR ---
cc: Jonah Mayo MD Immediate Post Op Note Procedure Date: Jan 03, 2018 Pre Op Diagnosis: near ESRD, need for HD access Post Op Diagnosis: near ESRD, need for HD access Surgeon: Jonah Mayo Dredge Mate(s): Morena Procedure: R NICOLAS AVF Findings: 2mm vein, sclerotic Additional Information: strong Doppler signal in wrist after case Complications: none Specimen(s) removed: none Estimated blood loss: 50mL Anesthesia: LMA Drains: None Fluids: 650mL IVF Patient to: PACU Patient Condition: Good Implant/Devices: SEE IMPLANT LOG (if applicable) Date/Time of Procedure: SEE SURGICAL CARE RECORD Jonah Mayo MD Jan 03, 2018 16:46
[2018-01-03 18:00] VITALS: BP 141/71; PULSE 76; RESP 16; TEMP 97.4; O2SAT 100
--- NOTE | 2018-01-04 13:46 | MP ---
cc: JONAH MAYO MD DATE OF SURGERY 01/03/2018 PREOPERATIVE DIAGNOSIS Near end-stage renal disease, needs dialysis access. 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 PROCEDURE Right brachiocephalic arteriovenous fistula. ATTENDING SURGEON Jonah Mayo MD RESIDENT SURGEON None. ANESTHESIA LMA. INDICATIONS Ms. Larsen is an 82-year-old lady who has near end-stage renal disease and currently not on dialysis. She was taken to the operating room for access creation. DESCRIPTION OF PROCEDURE Informed consent was obtained from the patient. She was taken to the operating room and placed supine on the operating room table. An appropriate time-out was taken to insure the identity of the operative site and planned procedure. The administration of 2 grams of Ancef was initiated prior to the skin incision, will be discontinued after a single preoperative dose. Everyone in the room agreed with the time-out and we proceeded. Her right arm was prepped and draped and incision made at the antecubital and carried down through the subcutaneous tissue with electrocautery. The cephalic vein was identified and dissected free for several cm; it was noted to be quite small but patent. The brachial artery was identified on the medial aspect of the incision. The patient was systemically heparinized with 3000 units of IV heparin. The cephalic vein was marked for orientation, clamped at the right angle and transected. The distal end was oversewn with 2-0 silk suture. Proximal and distal control of the brachial artery was obtained with profunda clamps and a longitudinal arteriotomy was made with 11 blade, extended with [place] scissors. The vein was spatulated and sewn end-to-side top the artery with running 6-0 Prolene sutures. At the completion it was flushed, noted to be hemostatic. There was a more pulsatile end thrill in the fistula but it had an audible bruit and there was a nice Doppler signal at the wrist. The heparin was reversed with protamine. The wounds were irrigated, infiltrated with Marcaine and closed with 2-0 Polysorb, 3-0 Polysorb and 4-0 Monocryl. Sponge and needle counts were correct at the end of the case. I was present and scrubbed and performed the entire procedure. MD ELDON Jackson/SSB /6:26 PM /1:22 PM
== END | disposition home or self-care (01) ==
LOC: HSDC 13:54
PROVIDERS: ATTEND Surgery
DX: N18.6 End stage renal disease (principal); I12.0 Hypertensive chronic kidney disease with stage 5 chronic kidney disease or end stage renal disease; Z99.2 Dependence on renal dialysis
CPT/HCPCS: 71045; 80048; 81001; 85025; 85610; 85730; 86850; 86900; 86901; 87086; J0690; J1644; J2370; J2405; J2720; J3010

== ENCOUNTER 2018-02-13 02:50 | Emergency (ER) | payer MEDICARE ==
[~2018-02-13] VITALS: Ht 167.6 cm; Wt 73.0 kg
[~2018-02-13 02:50] MED LIST changes: -*ONDANSETRON 4 MG VIAL PERIprocedural Use ONLY ONE; -BUPIVACAINE HCL PF 0.5% 10 ML VIAL ONE; -CHLORHEXIDINE GLUCONATE 2 % 1 PACK (2 CLOTHS) TOPICAL PRN; -DO NOT ADM ANY ANTICOAGULANT DRUGS PRN; -HEPARIN SODIUM - IV 10,000 UNITS/10 ML VIAL ONE; -HEPARIN-NS/PF INJ 500 ML ONE; -LACTATED RINGER'S 1000 ML IV PRN; -LIDOCAINE HCL 1% PF 5 ML SYRINGE OTHER ONE; -METOPROLOL TARTRATE 25 MG TAB PO PRN; -MORPHINE SULFATE 4 MG/ML INJ IV PRN; -PHENYLEPH/NS 1000 MCG/10 ML SYR IV ONE; -POVIDONE IODINE 5% (ANTISEPSIS KIT) 4 APPLICATIONS EACH NARE PRN; -PROPOFOL 200 MG/20 ML AMP IV ONE; -PROTAMINE SULFATE 50 MG/5 ML VIAL ONE; -SODIUM CHLORID 0.9% 500 ML IV PRN; -THROMBIN (TOPICAL) 20,000 UNIT VIAL ONE; -ceFAZolin 2 GM PREMIX 50 ML ONE; -ceFAZolin INJ 1,000 MG VIAL IV ONE; -ePHEDrine/NS 25 MG/5 ML SYRINGE IV ONE; -fentaNYL CITRATE 1000 MCG/20 ML VIAL ONE
[2018-02-13 02:54] VITALS: BP 143/65; PULSE 55; RESP 16; TEMP 97.9; O2SAT 99
[2018-02-13] MEDS ORDERED: ONDANSETRON HCL 4 MG/2 ML VIAL IV ONE (04:15)
[2018-02-13] MEDS ORDERED: MORPHINE SULFATE 4 MG/ML INJ IV PUSH ONE (04:15)
[2018-02-13] MEDS ORDERED: SODIUM CHLOR 0.9% 1000 ML INJ 1,000 ML IV ONE (04:15)
--- NOTE | 2018-02-13 04:16 | PD ---
HPI Chief Complaint: Abdominal Pain Time Seen by Provider: 03:25 Travel History International Travel<30 days: No Contact w/Intl Traveler<30days: No Traveled to known affect area: No History of Present Illness HPI [id number] woman who presents emerged department of abdominal pain and clogged J-tube. She has abdominal pain intermittently from idiopathic recurrent pancreatitis. She states it has been worse over the past several days. She has a J-tube. She states it has had recurrent trouble attendance been clogged since last night. States since the J-tube is been clogged her pain is gotten worse. She had some vomiting with it. No fevers. No other complaints. History Past Medical History Narrative Medical Idiopathic recurrent pancreatitis, followed by advanced GI Anxiety GERD Hypertension Tetanus Vaccination: Unknown Influenza Vaccination: Yes LMP: menapause Menopausal: Yes : 2 Para: 2 Social History Alcohol Use: No Tobacco Use: No Allergies-Medications (Allergen,Severity, Reaction): Coded Allergies: No Known Allergies (Verified Allergy, Unknown, 02/13/18) Reported Meds & Prescriptions Reported Meds & Active Scripts Active Meclizine (Meclizine HCl) 25 Mg Tab 25 Mg PO TID PRN 5 Days [place] (Hydrocodone-Acetaminophen) 5-325 mg Tab 1 Tab PO Q4H PRN Reported Presley Milk of Magnesia (Magnesium Hydroxide) 311 Mg Chew 2 Tab CHEW DAILY PRN Sucralfate 1 Gm Tab 1 Gm PO TID on empty stomach Cartia Xt (Diltiazem ER 24 HR) 120 Mg Caper 120 Mg PO DAILY Pantoprazole (Pantoprazole Sodium) 40 Mg Tab 40 Mg PO BID Creon (Amylase/Lipase/Protease) 12,000-38,000-60,000 Units Cap 1 Cap PO TIDPC Metoprolol Tartrate 25 Mg Tab 25 Mg PO BID Review of Systems Except as stated in HPI: all other systems reviewed are Neg Physical Exam Narrative GENERAL: 82-year-old woman, no acute distress. SKIN: Focused skin assessment warm/dry. HEAD: Atraumatic. Normocephalic. EYES: Pupils equal and round. No scleral icterus. No injection or drainage. ENT: No nasal bleeding or discharge. Mucous membranes pink and moist. NECK: Trachea midline. No JVD. CARDIOVASCULAR: Regular rate and rhythm. No murmur appreciated. RESPIRATORY: No accessory muscle use. Clear to auscultation. Breath sounds equal bilaterally. GASTROINTESTINAL: Abdomen soft. Mild diffuse tenderness. GJ tube in the left side of the abdomen. MUSCULOSKELETAL: No obvious deformities. No clubbing. No cyanosis. No edema. NEUROLOGICAL: Awake and alert. No obvious cranial nerve deficits. Motor grossly within normal limits. Normal speech. PSYCHIATRIC: Appropriate mood and affect; insight and judgment normal. Data Data Last Documented VS Vital Signs Date Time Temp Pulse Resp B/P (MAP) Pulse Ox O2 Delivery O2 Flow Rate FiO2 02/13/18 04:48 78 16 198/79 (118) 97 Room Air 02/13/18 02:54 97.9 Orders Orders Complete Blood Count With Diff (02/13/18 03:51) Comprehensive Metabolic Panel (02/13/18 03:51) Lipase (02/13/18 03:51) Iv Access Insert/Monitor (02/13/18 03:51) Ondansetron Inj (Zofran Inj) (02/13/18 04:15) Morphine Inj (Morphine Inj) (02/13/18 04:15) Sodium Chlor 0.9% 1000 Ml Inj (Ns 1000 M (02/13/18 04:15) Ed Discharge Order (02/13/18 05:49) Labs Laboratory Tests Test 02/13/18 04:35 White Blood Count 6.8 TH/MM3 Red Blood Count 4.21 MIL/MM3 Hemoglobin 11.9 GM/DL Hematocrit 37.1 % Mean Corpuscular Volume 87.9 FL Mean Corpuscular Hemoglobin 28.3 PG Mean Corpuscular Hemoglobin Concent 32.2 % Red Cell Distribution Width 14.6 % Platelet Count 223 TH/MM3 Mean Platelet Volume 9.5 FL Neutrophils (%) (Auto) 54.3 % Lymphocytes (%) (Auto) 30.8 % Monocytes (%) (Auto) 8.0 % Eosinophils (%) (Auto) 5.6 % Basophils (%) (Auto) 1.3 % Neutrophils # (Auto) 3.7 TH/MM3 Lymphocytes # (Auto) 2.1 TH/MM3 Monocytes # (Auto) 0.5 TH/MM3 Eosinophils # (Auto) 0.4 TH/MM3 Basophils # (Auto) 0.1 TH/MM3 CBC Comment DIFF FINAL Differential Comment Blood Urea Nitrogen 37 MG/DL Creatinine 2.75 MG/DL Random Glucose 90 MG/DL Total Protein 7.1 GM/DL Albumin 3.4 GM/DL Calcium Level 8.8 MG/DL Alkaline Phosphatase 107 U/L Aspartate Amino Transf (AST/SGOT) 11 U/L Alanine Aminotransferase (ALT/SGPT) 16 U/L Total Bilirubin 0.3 MG/DL Sodium Level 142 MEQ/L Potassium Level 4.3 MEQ/L Chloride Level 109 MEQ/L Carbon Dioxide Level 26.1 MEQ/L Anion Gap 7 MEQ/L Estimat Glomerular Filtration Rate 20 ML/MIN Lipase 70 U/L [facility] Medical Decision Making Medical Screen Exam Complete: Yes Emergency Medical Condition: Yes Interpretation(s) Laboratory Tests Test 02/13/18 04:35 White Blood Count 6.8 TH/MM3 Red Blood Count 4.21 MIL/MM3 Hemoglobin 11.9 GM/DL Hematocrit 37.1 % Mean Corpuscular Volume 87.9 FL Mean Corpuscular Hemoglobin 28.3 PG Mean Corpuscular Hemoglobin Concent 32.2 % Red Cell Distribution Width 14.6 % Platelet Count 223 TH/MM3 Mean Platelet Volume 9.5 FL Neutrophils (%) (Auto) 54.3 % Lymphocytes (%) (Auto) 30.8 % Monocytes (%) (Auto) 8.0 % Eosinophils (%) (Auto) 5.6 % Basophils (%) (Auto) 1.3 % Neutrophils # (Auto) 3.7 TH/MM3 Lymphocytes # (Auto) 2.1 TH/MM3 Monocytes # (Auto) 0.5 TH/MM3 Eosinophils # (Auto) 0.4 TH/MM3 Basophils # (Auto) 0.1 TH/MM3 CBC Comment DIFF FINAL Differential Comment Blood Urea Nitrogen 37 MG/DL Creatinine 2.75 MG/DL Random Glucose 90 MG/DL Total Protein 7.1 GM/DL Albumin 3.4 GM/DL Calcium Level 8.8 MG/DL Alkaline Phosphatase 107 U/L Aspartate Amino Transf (AST/SGOT) 11 U/L Alanine Aminotransferase (ALT/SGPT) 16 U/L Total Bilirubin 0.3 MG/DL Sodium Level 142 MEQ/L Potassium Level 4.3 MEQ/L Chloride Level 109 MEQ/L Carbon Dioxide Level 26.1 MEQ/L Anion Gap 7 MEQ/L Estimat Glomerular Filtration Rate 20 ML/MIN Lipase 70 U/L Differential Diagnosis Recurrent pancreatitis, abdominal pain, GJ tube malfunction, other Narrative Course Medical decision making 82-year-old woman presents to the emergency department complaining of a GJ tube. She looks well. She some mild abdominal tenderness. History of recurrent pancreatitis. Will check labs, troubleshoot GJ tube, and nausea medicine, reassess. Diagnosis Primary Impression: Chronic recurrent pancreatitis Patient Instructions: General Instructions Additional Instructions: Follow-up with interventional radiology by calling first thing Wednesday morning to schedule appointment for GJ tube replacement. Return to the emergency department for dehydration, worsening abdominal pain, or any other new or worsening symptoms. Med/Other Pt SpecificInfo: No Change to Meds Disposition: 01 DISCHARGE HOME Condition: Stable Sanford Gale MD Feb 13, 2018 04:16
[2018-02-13 04:48] VITALS: BP 198/79; PULSE 78; RESP 16; O2SAT 97
[2018-02-13 05:00] LABS: AUTOMATED NEUTROPHIL # 3.7 TH/MM3 (1.8-7.7); BASOPHIL # 0.1 TH/MM3 (0-0.2); BASOPHIL % 1.3 % (0.0-2.0); EOSINOPHIL # 0.4 TH/MM3 (0-0.4); EOSINOPHIL % 5.6 % (0.0-4.0); HEMATOCRIT 37.1 % (35.0-46.0); HEMOGLOBIN 11.9 GM/DL (11.6-15.3); LYMPH % 30.8 % (9.0-44.0); LYMPHOCYTE # 2.1 TH/MM3 (1.0-4.8); MEAN CELL VOLUME 87.9 FL (80.0-100.0); MEAN CORPUSCULAR HEMOGLOBIN 28.3 PG (27.0-34.0); MEAN CORPUSCULAR HGB CONC 32.2 % (32.0-36.0); MEAN PLATELET VOLUME 9.5 FL (7.0-11.0); MONOCYTE # 0.5 TH/MM3 (0-0.9); NEUT % 54.3 % (16.0-70.0); PLATELET COUNT 223 TH/MM3 (150-450); RED BLOOD COUNT 4.21 MIL/MM3 (4.00-5.30); RED CELL DISTRIBUTION WIDTH 14.6 % (11.6-17.2); WHITE BLOOD COUNT 6.8 TH/MM3 (4.0-11.0)
[2018-02-13 05:25] LABS: ALBUMIN 3.4 GM/DL (3.4-5.0); AST (GOT) 11 U/L (15-37); BICARBONATE 26.1 MEQ/L (21.0-32.0); BLOOD UREA NITROGEN 37 MG/DL (7-18); CALCIUM 8.8 MG/DL (8.5-10.1); CHLORIDE 109 MEQ/L (98-107); CREATININE 2.75 MG/DL (0.50-1.00); GLOMERULAR FILTRATION RATE 20 ML/MIN (>89); GLUCOSE,RANDOM 90 MG/DL (74-106); SODIUM (NA) 142 MEQ/L (136-145)
[2018-02-13 05:28] LABS: ALKALINE PHOSPHATASE 107 U/L (45-117); ALT (GPT) 16 U/L (10-53); TOTAL BILIRUBIN ADULT 0.3 MG/DL (0.2-1.0); TOTAL PROTEIN 7.1 GM/DL (6.4-8.2)
== END 2018-02-13 06:39 | disposition home or self-care (01) ==
LOC: NEPE 02:50
DX: K86.1 Other chronic pancreatitis (principal); I10 Essential (primary) hypertension; K21.9 Gastro-esophageal reflux disease without esophagitis; F41.9 Anxiety disorder, unspecified; Z93.4 Other artificial openings of gastrointestinal tract status
CPT/HCPCS: 80053; 83690; 85025; 96361; 96374; 96375; 99284; J2270; J2405; J7030

== ENCOUNTER 2018-02-14 09:24 | Day surgery (SDC) | payer MEDICARE ==
[~2018-02-14] VITALS: Ht 167.6 cm; Wt 72.2 kg
[2018-02-14] MEDS ORDERED: IOHEXOL 350 MG/ML 50 ML BTL (for RAD DIAG) OTHER ONE (09:25)
[2018-02-14 09:39] VITALS: BP 127/67; PULSE 64; RESP 18; TEMP 98.3; O2SAT 99
[2018-02-14] MEDS ORDERED: SODIUM CHLORIDE 0.9% 1000 ML IV SCH (10:00)
--- NOTE | 2018-02-14 11:08 | PD.RAD ---
Post Procedure Progress Note Pre Procedure Diagnosis: (1) Encounter for feeding tube placement Post Procedure Diagnosis: (1) Encounter for feeding tube placement Procedure Date: Feb 14, 2018 Supervising Radiologist: Ryan Stuart Proceduralist/Assist: Junior Ventura RT(R), Clarissa Bradley RT(R)(CV) Anesthesia: Local Plan of Activity Patient to Unit: ROPU Patient Condition: Good See PACS Report for procedural detail/treatment Feeding Tube Gastro/Jejunostomy Replacement Ryan Stuart MD Feb 14, 2018 11:08
[2018-02-14 11:10] VITALS: BP 131/68; PULSE 76; RESP 18; TEMP 97.7; O2SAT 100
[2018-02-14 11:25] VITALS: BP 137/66; PULSE 60; RESP 18; O2SAT 97
--- NOTE | 2018-02-14 13:16 | RADRPT ---
EXAM DATE/TIME: 02/14/2018 10:33 [facility] COMPARISON: CHANGE OF GJ-TUBE CATHETER, November 17, 2017, 11:40. INDICATIONS : Patient with clogged TJ tube. History of chronic pancreatitis. MEDICAL HISTORY : 1. HTN 2. chronic pancreatits 3. Gastroparesis 4. GERD 5. HLD 6. CKD 7. A fib SURGICAL HISTORY : 1. Cholecysrectomy 2. GJ tube exchanges 3. Sphinteromy 4. Bilary stent 5. celiac plexus block 6. ERCP ENCOUNTER: Subsequent ACUITY: 2 days PAIN SCORE: 0/10 FLUORO TIME: 1.1 minutes IMAGE SERIES: 3 CONTRAST: 30 cc Omnipaque (iohexol) 350 DEVICE(S): 1.) 22 Greek Transgastric tube PROCEDURE : 1. Fluoroscopically guided gastrojejunostomy tube exchange. 2. Conscious sedation with continuous EKG and oximetry monitoring. The risks, benefits and alternatives to the procedure were explained and verbal and written consent w as obtained. The site was prepped in sterile fashion. Full sterile technique was used, including ca p, mask, sterile gloves and gown and a large sterile sheet. Hand hygiene and 2% chlorhexidine and/or betadine/alcohol prep was utilized per protocol for cutaneous antisepsis. The skin and subcutaneous tissues were infiltrated with local anesthetic solution. With fluoroscopic guidance a guidewire was passed through the previous gastrojejunostomy tube and a f resh tube was placed over the guidewire. The balloon was inflated with appropriate volume of saline. Injection of positive contrast demonstrates good position of the gastric and jejunal lumens of the tube. Conscious sedation was performed with the prescribed dosages and duration as above in the presence of an independent trained radiology nurse to assist in the monitoring of the patient. EKG and oximetry remained stable throughout the procedure. The patient tolerated the procedure well and there were n o complications. The patient was sent to post anesthesia recovery in stable condition. CONCLUSION: Uncomplicated gastrojejunostomy tube exchange as above. yRan Stuart MD on February 14, 2018 at 13:14 Board Certified Radiologist. This report was verified electronically.
== END 2018-02-14 11:35 | disposition home or self-care (01) ==
LOC: HROP 09:24 → HRIP 09:28 → HROP 11:35
PROVIDERS: ATTEND Preventive Medicine Addiction Medicine
DX: Z46.59 Encounter for fitting and adjustment of other gastrointestinal appliance and device (principal); K86.1 Other chronic pancreatitis; K31.84 Gastroparesis; I12.9 Hypertensive chronic kidney disease with stage 1 through stage 4 chronic kidney disease, or unspecified chronic kidney disease; N18.9 Chronic kidney disease, unspecified; E78.5 Hyperlipidemia, unspecified; K21.9 Gastro-esophageal reflux disease without esophagitis
CPT/HCPCS: 49452; C1769; C1874; Q9967

== ENCOUNTER 2018-03-03 05:54 | Inpatient (IN) | payer MEDICARE ==
[~2018-03-03] VITALS: Ht 167.6 cm; Wt 98.0 kg
[2018-03-03 05:56] VITALS: BP 102/58; PULSE 98; RESP 18; TEMP 98.2
--- NOTE | 2018-03-03 06:35 | PD ---
HPI Chief Complaint: Abdominal Pain Time Seen by Provider: 06:32 Travel History International Travel<30 days: No Contact w/Intl Traveler<30days: No Traveled to known affect area: No History of Present Illness HPI Patient is an 82-year-old female who has a history of chronic pancreatitis with recurrent exacerbations. She is also had issues with feeding and losing weight and she recently had surgery 2 weeks ago to put a G-tube. According to her child bedside says that the patient has had a G-tube that has been placed and taken down multiple times over the last few years with a recent placed 2 weeks ago. She gets feeds at night thru the G-tube. Her pain pt thinks is due to her pancreatitis. She has periumbilical pain getting worse over the last 2 days. She took a home pain pill with minimal relief of her pain. She comes into the ER complaining of periumbilical pain .. Again she thinks this is pancreatitis. She has nausea but no vomiting no diarrhea. They deny alcoholism , deny gallstones She had her gallbladder taken out they deny pancreatic tumor. They report there was never reason found for the pancreatitis that has been recurrent throughout the last few years PFSH Past Medical History Arthritis: Yes Asthma: No Atrial Fibrillation: Yes (HX YES PER PATIENT "NO") Autoimmune Disease: No Blood Disorders: No Anxiety: No Depression: No Heart Rhythm Problems: Yes Cancer: No Cardiovascular Problems: No High Cholesterol: Yes Chemotherapy: No Chest Pain: Yes Congestive Heart Failure: No COPD: No Cerebrovascular Accident: No Diabetes: No Diminished Hearing: No Endocrine: No Gastrointestinal Disorders: Yes (HIATAL HERNIA, gerd, duodenal ulcer) GERD: Yes Glaucoma: No Genitourinary: No Headaches: No Hepatitis: No Hiatal Hernia: Yes Hypertension: Yes Immune Disorder: No Implanted Vascular Access Dvce: Yes Kidney Stones: No Musculoskeletal: Yes (arthritis,neck and back problems) Neurologic: No Psychiatric: No Reproductive: No Respiratory: No Migraines: No Pancreatitis: Yes (chronic) Radiation Therapy: No Renal Failure: No Seizures: No Sickle Cell Disease: No Sleep Apnea: No Thyroid Disease: No Ulcer: No Menopausal: Yes : 2 Para: 2 Past Surgical History Abdominal Surgery: Yes (cholecystectomy, sphincterotomy, Jtube placed) Arteriovenous Shunt: No Body Medical Devices: j tube Cardiac Surgery: No Cholecystectomy: Yes (2012) Ear Surgery: No Endocrine Surgery: No Eye Surgery: Yes (bilat cat) Genitourinary Surgery: Yes (HEMORRHOIDECTOMY) Gynecologic Surgery: No Hysterectomy: Yes Insulin Pump: No Joint Replacement: Yes (TKR LEFT KNEE) Oral Surgery: No Pacemaker: No Thoracic Surgery: No Other Surgery: Yes (GROWTH REMOVED FROM LEFT WRIST/Sinus) Social History Alcohol Use: No Tobacco Use: No Substance Use: No Allergies-Medications (Allergen,Severity, Reaction): Coded Allergies: No Known Allergies (Verified Allergy, Unknown, 03/03/18) Reported Meds & Prescriptions Reported Meds & Active Scripts Active Meclizine (Meclizine HCl) 25 Mg Tab 25 Mg PO TID PRN 5 Days [place] (Hydrocodone-Acetaminophen) 5-325 mg Tab 1 Tab PO Q4H PRN Reported Presley Milk of Magnesia (Magnesium Hydroxide) 311 Mg Chew 2 Tab CHEW DAILY PRN Sucralfate 1 Gm Tab 1 Gm PO TID on empty stomach Cartia Xt (Diltiazem ER 24 HR) 120 Mg Caper 120 Mg PO DAILY Pantoprazole (Pantoprazole Sodium) 40 Mg Tab 40 Mg PO BID Creon (Amylase/Lipase/Protease) 12,000-38,000-60,000 Units Cap 1 Cap PO TIDPC Metoprolol Tartrate 25 Mg Tab 25 Mg PO BID Review of Systems Except as stated in HPI: all other systems reviewed are Neg Physical Exam Narrative GENERAL: No acute distress lying comfortably in the bed SKIN: Warm and dry. HEAD: Atraumatic. Normocephalic. EYES: Pupils equal and round. No scleral icterus. No injection or drainage. ENT: No nasal bleeding or discharge. Mucous membranes pink and moist. NECK: Trachea midline. No JVD. CARDIOVASCULAR: Regular rate and rhythm. RESPIRATORY: No accessory muscle use. Clear to auscultation. Breath sounds equal bilaterally. GASTROINTESTINAL: Abdomen pain with percussion of her maliha-umbilical area also G -tube in place with feeding material in the G-tube, no sign of obstruction or infection of the G-tube . G-tube is in place MUSCULOSKELETAL: Extremities without clubbing, cyanosis, or edema. No obvious deformities. NEUROLOGICAL: Awake and alert. No obvious cranial nerve deficits. Motor grossly within normal limits. Five out of 5 muscle strength in the arms and legs. Normal speech. PSYCHIATRIC: Appropriate mood and affect; insight and judgment normal. Data Data Last Documented VS Orders Orders Abdomen, Flat & Upright (03/03/18 ) Complete Blood Count With Diff (03/03/18 06:36) Comprehensive Metabolic Panel (03/03/18 06:36) Lipase (03/03/18 06:36) Morphine Inj (Morphine Inj) (03/03/18 06:45) Sodium Chlor 0.9% 1000 Ml Inj (Ns 1000 M (03/03/18 06:45) Ct Abd/Pel W/O Iv Contrast (03/03/18 08:20) Blood Culture (03/03/18 08:33) Piperacil-Tazo 3.375 Gm Premix (Zosyn 3. (03/03/18 08:45) Lactic Acid Sepsis Protocol (03/03/18 08:52) Admit Order (Ed Use Only) (03/03/18 09:54) Labs Laboratory Tests Test 03/03/18 07:35 03/03/18 08:50 White Blood Count 22.8 TH/MM3 Red Blood Count 4.72 MIL/MM3 Hemoglobin 13.4 GM/DL Hematocrit 41.4 % Mean Corpuscular Volume 87.8 FL Mean Corpuscular Hemoglobin 28.4 PG Mean Corpuscular Hemoglobin Concent 32.3 % Red Cell Distribution Width 14.0 % Platelet Count 176 TH/MM3 Mean Platelet Volume 9.2 FL Neutrophils (%) (Auto) 95.1 % Lymphocytes (%) (Auto) 1.2 % Monocytes (%) (Auto) 3.0 % Eosinophils (%) (Auto) 0.0 % Basophils (%) (Auto) 0.7 % Neutrophils # (Auto) 21.7 TH/MM3 Lymphocytes # (Auto) 0.3 TH/MM3 Monocytes # (Auto) 0.7 TH/MM3 Eosinophils # (Auto) 0.0 TH/MM3 Basophils # (Auto) 0.2 TH/MM3 CBC Comment AUTO DIFF Differential Total Cells Counted 100 Neutrophils % (Manual) 60 % Band Neutrophils % 34 % Lymphocytes % 2 % Monocytes % 4 % Neutrophils # (Manual) 21.4 TH/MM3 Differential Comment FINAL DIFF MANUAL Toxic Vacuolation PRESENT Platelet Estimate NORMAL Platelet Morphology Comment NORMAL Red Cell Morphology Comment NORMAL Blood Urea Nitrogen 38 MG/DL Creatinine 2.84 MG/DL Random Glucose 99 MG/DL Total Protein 7.3 GM/DL Albumin 3.6 GM/DL Calcium Level 9.2 MG/DL Alkaline Phosphatase 349 U/L Aspartate Amino Transf (AST/SGOT) 646 U/L Alanine Aminotransferase (ALT/SGPT) 461 U/L Total Bilirubin 1.8 MG/DL Sodium Level 143 MEQ/L Potassium Level 4.0 MEQ/L Chloride Level 110 MEQ/L Carbon Dioxide Level 22.7 MEQ/L Anion Gap 10 MEQ/L Estimat Glomerular Filtration Rate 19 ML/MIN Lipase 111 U/L Lactic Acid Level 1.2 mmol/L MDM Medical Decision Making Medical Screen Exam Complete: Yes Emergency Medical Condition: Yes Medical Record Reviewed: Yes Differential Diagnosis Pain from pancreatitis pain from gastritis pain from G-tube recent placement and dislodgment pain from obstruction pain from abdomen NOS postoperative scarring postprocedural G-tube placement pain other Narrative Course Lipase is sent labs are sent .. IV fluid is given and morphine IV and CAT scan will sign out to morning attending to follow and re-eval Diagnosis Primary Impression: Abdominal pain Qualified Codes: R10.9 - Unspecified abdominal pain Stanley Viera MD Mar 03, 2018 06:35
[2018-03-03] MEDS ORDERED: MORPHINE SULFATE 4 MG/ML INJ IV PUSH ONE (06:45)
[2018-03-03] MEDS ORDERED: SODIUM CHLOR 0.9% 1000 ML INJ 1,000 ML IV ONE (06:45)
--- NOTE | 2018-03-03 06:59 | RADRPT ---
EXAM DATE/TIME: 03/03/2018 06:40 [facility] COMPARISON: CHANGE OF GJ-TUBE CATHETER, February 14, 2018, 10:33. INDICATIONS : Abdominal pain. MEDICAL HISTORY : Hypertension. Pancreatitis. Gastroparesis. GERD HKL CKD A-Fib SURGICAL HISTORY : None. ENCOUNTER: Initial ACUITY: 1 day PAIN SCORE: 0/10 LOCATION: Bilateral Abdomen FINDINGS: Supine and upright views of the abdomen were performed. The abdominal bowel gas pattern is normal. No air fluid levels are seen. No abnormal masses, calcifications, or organomegaly is seen. There is a G-tube overlying the stomach. Stent overlying the right upper quadrant. The visualized lower lungs are clear. No evidence of free intraperitoneal gas. The osseous structures are unremarkable. CONCLUSION: No concerning abnormalities seen. Meeta De Dios MD on March 03, 2018 at 6:54 Board Certified Radiologist. This report was verified electronically.
[2018-03-03 07:53] LABS: AUTOMATED NEUTROPHIL # 21.7 TH/MM3 (1.8-7.7); BASOPHIL # 0.2 TH/MM3 (0-0.2); BASOPHIL % 0.7 % (0.0-2.0); HEMATOCRIT 41.4 % (35.0-46.0); HEMOGLOBIN 13.4 GM/DL (11.6-15.3); LYMPH % 1.2 % (9.0-44.0); LYMPHOCYTE # 0.3 TH/MM3 (1.0-4.8); MEAN CELL VOLUME 87.8 FL (80.0-100.0); MEAN CORPUSCULAR HEMOGLOBIN 28.4 PG (27.0-34.0); MEAN CORPUSCULAR HGB CONC 32.3 % (32.0-36.0); MEAN PLATELET VOLUME 9.2 FL (7.0-11.0); MONOCYTE # 0.7 TH/MM3 (0-0.9); NEUT % 95.1 % (16.0-70.0); PLATELET COUNT 176 TH/MM3 (150-450); RED BLOOD COUNT 4.72 MIL/MM3 (4.00-5.30); WHITE BLOOD COUNT 22.8 TH/MM3 (4.0-11.0)
--- NOTE | 2018-03-03 07:57 | PD ---
Physical Exam Date Seen by Provider: Mar 03, 2018 Time Seen by Provider: 07:00 Narrative This was signed out to me by Dr. Viera at change of shift. This is an 82- year-old female with a history of chronic and recurrent pancreatitis, presents today with bites of abdominal pain. Labs are pending at the time of signout. X -ray shows no evidence of acute findings. Data Data Last Documented VS Vital Signs Date Time Temp Pulse Resp B/P (MAP) Pulse Ox O2 Delivery O2 Flow Rate FiO2 03/03/18 05:56 98.2 98 18 102/58 (73) Orders Orders Abdomen, Flat & Upright (03/03/18 ) Complete Blood Count With Diff (03/03/18 06:36) Comprehensive Metabolic Panel (03/03/18 06:36) Lipase (03/03/18 06:36) Morphine Inj (Morphine Inj) (03/03/18 06:45) Sodium Chlor 0.9% 1000 Ml Inj (Ns 1000 M (03/03/18 06:45) Ct Abd/Pel W/O Iv Contrast (03/03/18 08:20) Blood Culture (03/03/18 08:33) Piperacil-Tazo 3.375 Gm Premix (Zosyn 3. (03/03/18 08:45) Lactic Acid Sepsis Protocol (03/03/18 08:52) Labs Laboratory Tests Test 03/03/18 07:35 03/03/18 08:50 White Blood Count 22.8 TH/MM3 Red Blood Count 4.72 MIL/MM3 Hemoglobin 13.4 GM/DL Hematocrit 41.4 % Mean Corpuscular Volume 87.8 FL Mean Corpuscular Hemoglobin 28.4 PG Mean Corpuscular Hemoglobin Concent 32.3 % Red Cell Distribution Width 14.0 % Platelet Count 176 TH/MM3 Mean Platelet Volume 9.2 FL Neutrophils (%) (Auto) 95.1 % Lymphocytes (%) (Auto) 1.2 % Monocytes (%) (Auto) 3.0 % Eosinophils (%) (Auto) 0.0 % Basophils (%) (Auto) 0.7 % Neutrophils # (Auto) 21.7 TH/MM3 Lymphocytes # (Auto) 0.3 TH/MM3 Monocytes # (Auto) 0.7 TH/MM3 Eosinophils # (Auto) 0.0 TH/MM3 Basophils # (Auto) 0.2 TH/MM3 CBC Comment AUTO DIFF Differential Total Cells Counted 100 Neutrophils % (Manual) 60 % Band Neutrophils % 34 % Lymphocytes % 2 % Monocytes % 4 % Neutrophils # (Manual) 21.4 TH/MM3 Differential Comment FINAL DIFF MANUAL Toxic Vacuolation PRESENT Platelet Estimate NORMAL Platelet Morphology Comment NORMAL Red Cell Morphology Comment NORMAL Blood Urea Nitrogen 38 MG/DL Creatinine 2.84 MG/DL Random Glucose 99 MG/DL Total Protein 7.3 GM/DL Albumin 3.6 GM/DL Calcium Level 9.2 MG/DL Alkaline Phosphatase 349 U/L Aspartate Amino Transf (AST/SGOT) 646 U/L Alanine Aminotransferase (ALT/SGPT) 461 U/L Total Bilirubin 1.8 MG/DL Sodium Level 143 MEQ/L Potassium Level 4.0 MEQ/L Chloride Level 110 MEQ/L Carbon Dioxide Level 22.7 MEQ/L Anion Gap 10 MEQ/L Estimat Glomerular Filtration Rate 19 ML/MIN Lipase 111 U/L Lactic Acid Level 1.2 mmol/L MDM Medical Record Reviewed: Yes Supervised Visit with ABHAY: No Differential Diagnosis Pancreatitis versus gastroenteritis versus G-tube malfunction Narrative Course 82-year-old female with history of recurrent pancreatitis, chronic kidney disease, who presents today with complaints of abdominal pain. Patient has pain around her G-tube site as well as in her upper abdomen. There is no reported fever. Patient's white blood cell count is 22,800. Her LFTs, total bili and alk phos are all elevated above what they were earlier this month. CT scan shows fullness around the bret hepatis stent. There is also mild fluid around her pancreas which could indicate pancreatitis. She has been started on Zosyn. Blood cultures have been sent. Patient's lactic acid is 1.2. There is call out to the [facility] admitting physician for admission. Diagnosis Primary Impression: Abdominal pain Qualified Codes: R10.9 - Unspecified abdominal pain Additional Impressions: Elevated liver enzymes Leukocytosis Pancreatitis Admitting Information Admitting Physician Requests: Admit Stevenson Guerrier MD Mar 03, 2018 07:57
[2018-03-03 08:10] LABS: ALBUMIN 3.6 GM/DL (3.4-5.0); ALT (GPT) 461 U/L (10-53); AST (GOT) 646 U/L (15-37); BICARBONATE 22.7 MEQ/L (21.0-32.0); BLOOD UREA NITROGEN 38 MG/DL (7-18); CALCIUM 9.2 MG/DL (8.5-10.1); CHLORIDE 110 MEQ/L (98-107); CREATININE 2.84 MG/DL (0.50-1.00); GLOMERULAR FILTRATION RATE 19 ML/MIN (>89); GLUCOSE,RANDOM 99 MG/DL (74-106); SODIUM (NA) 143 MEQ/L (136-145)
[2018-03-03 08:13] LABS: ALKALINE PHOSPHATASE 349 U/L (45-117); TOTAL BILIRUBIN ADULT 1.8 MG/DL (0.2-1.0); TOTAL PROTEIN 7.3 GM/DL (6.4-8.2)
[2018-03-03 08:25] LABS: BANDS 34 % (0-6); LYMPHOCYTES 2 % (9-44); MONOCYTES 4 % (0-8); NEUTROPHIL # MANUAL DIFF 21.4 TH/MM3 (1.8-7.7); POLYS (SEG NEUTROPHILS) 60 % (16-70); TOXIC VACUOLATION PRESENT (NONE SEEN)
[2018-03-03] MEDS ORDERED: PIPERACIL-TAZO 3.375 GM PREMIX 50 ML IV ONE (08:45)
--- NOTE | 2018-03-03 09:39 | RADRPT ---
EXAM DATE/TIME: 03/03/2018 09:06 [facility] COMPARISON: CT ABDOMEN & PELVIS W/O CONTRAST, February 21, 2017, 16:42. INDICATIONS : bdomen pain with elevated liver enzymes, history of pancreatitis ORAL CONTRAST: No oral contrast ingested. RADIATION DOSE: 8.79 CTDIvol (mGy) MEDICAL HISTORY : Hypertension. SURGICAL HISTORY : Cholecystectomy. Hemorrhoidectomy. ENCOUNTER: Initial ACUITY: 1 day PAIN SCALE: 4/10 LOCATION: upper quadrant TECHNIQUE: Volumetric scanning of the abdomen and pelvis was performed. Using automated exposure control and ad justment of the mA and/or kV according to patient size, radiation dose was kept as low as reasonably achievable to obtain optimal diagnostic quality images. DICOM format image data is available electro nically for review and comparison. FINDINGS: LOWER LUNGS: Minimal airspace disease remains evident in the left lung base. LIVER: A metallic common bile duct stent is in place. Soft tissue fullness is identified in the bret hepati s surrounding the stent. The liver otherwise is unremarkable. There is no evidence of dilated biliary ducts. There are no discrete intrahepatic masses. SPLEEN: Normal size without lesion. PANCREAS: Minimal peripancreatic fluid stranding is noted. There are no discrete pancreatic masses. There are n o loculated fluid collections. KIDNEYS: Right renal cyst and small nonobstructing calculus in the lower pole are stable. Moderate atrophy of the left kidney is noted. Left kidney contains a small cyst in its lower pole. ADRENAL GLANDS: Within normal limits. VASCULAR: There is no aortic aneurysm. BOWEL/MESENTERY: A gastrojejunostomy feeding tube is noted in place. The gastric balloon as migrated into the antrum o f the stomach. Jejunostomy component remains in satisfactory position. The intestinal gas pattern is otherwise unremarkable. There is no evidence of free air, free fluid, ileus or inflammatory disease. ABDOMINAL WALL: Within normal limits. RETROPERITONEUM: There is no lymphadenopathy. BLADDER: No wall thickening or mass. REPRODUCTIVE: Within normal limits. INGUINAL: There is no lymphadenopathy or hernia. MUSCULOSKELETAL: Degenerative disc disease and facet arthropathy is seen in the lower lumbar spine. Degenerative anter olisthesis is noted of L5 on S1. CONCLUSION: 1. Very mild peripancreatic fluid stranding which may represent low-grade pancreatitis. 2. Common bile duct stent noted in place. There is no evidence of intrahepatic biliary duct dilatatio n. 3. Significant soft tissue fullness in the bret hepatis surrounding the proximal portion of the sten t. 4. Status post cholecystectomy. 5. Gastric balloon of the gastrojejunostomy as migrated into the stomach and needs to be pulled back and secured. 6. Degenerative anterolisthesis at L5-S1 with advanced degenerative changes in the lower lumbar spine . 7. Mild airspace disease left base. Baron Shin MD on March 03, 2018 at 9:26 Board Certified Radiologist. This report was verified electronically.
[2018-03-03 10:41] LABS: BILIRUBIN, URINE NEG (NEG); BLOOD, URINE NEG (NEG); GLUCOSE,URINE NEG (NEG); KETONE, URINE NEG (NEG); MUCUS URINE FEW /lpf (OCC); NITRITE,URINE NEG (NEG); PH, URINE 5.5 (5.0-8.5); SQUAMOUS EPITHELIAL CELL URINE 1 /hpf (0-5); URINE COLOR YELLOW (YELLW/STRAW); URINE LEUKOCYTE ESTERASE MOD (NEG)
--- NOTE | 2018-03-03 10:50 | HHI.HP ---
HPI Service [facility] Hospitalists Primary Care Physician Hong Peterson MD Admission Diagnosis Recurrent pancreatitis, abdominal pain, leukocytosis, elevated LFTs Chief Complaint: Abdominal pain Travel History International Travel<30 Days: No Contact w/Intl Traveler <30 Da: No Traveled to Known Affected Are: No History of Present Illness Ms. Larsen is an 82 y/o AAF with recurrent idiopathic pancreatitis. She has been hospitalized numerous times for issues with pain control related to recurrent pancreatitis. Her last admission was in 05/2017 and she had biliary obstruction at that time. Pt was evaluated with ERCP was during her last admission on 06/10/[address] Ortega which revealed the patient had prior sphincterotomy and a metal stent in the bile duct and were able to obtain easy cannulation of the common bile duct but the stent was clogged up with sludge and stones and so using an 8 mm balloon the stent and the distal CBD were cleaned out then was lavaged and then further cleaning was performed and then an obstructive cholangiogram was finally able to clear the common bile duct of all filling defects. Pt presented to the ED at [facility] on 03/03/18 with complaints of worsening abdominal pain for the last 2-3 days. She relates the pain to food intake which gradually worsens after eating. She has also had some vomiting in the last 24 hours. Pt has been having normal BMs. Denies any fevers or chills. She reports that the pain is the same pain that she has had previously with her pancreatitis. She has been using [facility] at night for the pain. Her labs in the ED revealed WBC count 22, Cr 2.84/BUN 38, TBili 1.8, AST 646, ALT 461, AlkPhos 349. She had a CT Abd/pelvis in the ED which noted very mild peripancreatic fluid stranding which may represent low-grade pancreatitis, common bile duct stent noted in place, no evidence of intrahepatic biliary duct dilatation, significant soft tissue fullness in the bret hepatis surrounding the proximal portion of the stent, s/p cholecystectomy, gastric balloon of the gastrojejunostomy as migrated into the stomach and needs to be pulled back and secured, and degenerative anterolisthesis at L5-S1 with advanced degenerative changes in the lower lumbar spine and mild airspace disease left base. Review of Systems Constitutional: DENIES: Fever, Chills Eyes: DENIES: Vision loss Ears, nose, mouth, throat: DENIES: Hearing loss Respiratory: DENIES: Cough, Shortness of breath Cardiovascular: DENIES: Chest pain, Dyspnea on Exertion, Lower Extremity Edema Gastrointestinal: COMPLAINS OF: Abdominal pain, Nausea, Vomiting, DENIES: Constipation, Diarrhea Genitourinary: DENIES: Urinary frequency, Urinary incontinence, Urgency Musculoskeletal: DENIES: Back pain, Neck pain Integumentary: DENIES: Rash Neurologic: DENIES: Headache Psychiatric: DENIES: Confusion Past Family Social History Past Medical History Idiopathic recurrent pancreatitis CKD, stage 3 Anxiety GERD HTN Past Surgical History Lap ruth Cataract surgery Hemorrhoid surgery ERCP EUS GJ tube celiac plexus block. Reported Medications Meclizine 25 Mg PO TID PRN 5 Days [facility] 5-325 mg PO Q4H PRN Presley Milk of Magnesia 311 Mg Chew 2 Tab CHEW DAILY PRN Sucralfate 1 Gm PO TID Cartia Xt 120 Mg PO DAILY Pantoprazole 40 Mg PO BID Creon 12,000-38,000-60,000 Units Cap 1 Cap PO TIDPC Metoprolol Tartrate 25 Mg PO BID Allergies: Coded Allergies: No Known Allergies (Verified Allergy, Unknown, 03/03/18) Family History Noncontributory Social History Denies any alcohol, tobacco or illicit drug use Physical Exam Vital Signs Vital Signs Date Time Temp Pulse Resp B/P (MAP) Pulse Ox O2 Delivery O2 Flow Rate FiO2 03/03/18 05:56 98.2 98 18 102/58 (73) Physical Exam GENERAL: This is a well-nourished, well-developed patient, in no apparent distress. SKIN: No rashes, ecchymoses or lesions. Cool and dry. HEENT: Atraumatic. Normocephalic. No temporal or scalp tenderness. No scleral icterus. Airway patent. NECK: Trachea midline, supple, nontender. CARDIO: Regular. RESP: CTA bilaterally. No wheezes, rales, or rhonchi. ABD: +BS, soft, upper abdominal tenderness, nondistended. EXT: Extremities without clubbing, cyanosis, or edema. NEURO: Awake and alert. Motor and sensory grossly within normal limits. CUMMINS. Normal speech. Laboratory Laboratory Tests Test 03/03/18 07:35 03/03/18 08:50 03/03/18 10:20 White Blood Count 22.8 Red Blood Count 4.72 Hemoglobin 13.4 Hematocrit 41.4 Mean Corpuscular Volume 87.8 Mean Corpuscular Hemoglobin 28.4 Mean Corpuscular Hemoglobin Concent 32.3 Red Cell Distribution Width 14.0 Platelet Count 176 Mean Platelet Volume 9.2 Neutrophils (%) (Auto) 95.1 Lymphocytes (%) (Auto) 1.2 Monocytes (%) (Auto) 3.0 Eosinophils (%) (Auto) 0.0 Basophils (%) (Auto) 0.7 Neutrophils # (Auto) 21.7 Lymphocytes # (Auto) 0.3 Monocytes # (Auto) 0.7 Eosinophils # (Auto) 0.0 Basophils # (Auto) 0.2 CBC Comment AUTO DIFF Differential Total Cells Counted 100 Neutrophils % (Manual) 60 Band Neutrophils % 34 Lymphocytes % 2 Monocytes % 4 Neutrophils # (Manual) 21.4 Differential Comment FINAL DIFF MANUAL Toxic Vacuolation PRESENT Platelet Estimate NORMAL Platelet Morphology Comment NORMAL Red Cell Morphology Comment NORMAL Blood Urea Nitrogen 38 Creatinine 2.84 Random Glucose 99 Total Protein 7.3 Albumin 3.6 Calcium Level 9.2 Alkaline Phosphatase 349 Aspartate Amino Transf (AST/SGOT) 646 Alanine Aminotransferase (ALT/SGPT) 461 Total Bilirubin 1.8 Sodium Level 143 Potassium Level 4.0 Chloride Level 110 Carbon Dioxide Level 22.7 Anion Gap 10 Estimat Glomerular Filtration Rate 19 Lipase 111 Lactic Acid Level 1.2 Date/Time Source Procedure Growth Status 03/03/18 08:45 Blood Peripheral Aerobic Blood Culture Pending Received 03/03/18 08:45 Blood Peripheral Anaerobic Blood Culture Pending Received Result Diagram: 03/03/18 0735 03/03/18 0735 Imaging Last Impressions Abdomen/Pelvis CT 03/03/18 0820 Signed Impressions: Service Date/Time: February 09:06 - CONCLUSION: 1. Very mild peripancreatic fluid stranding which may represent low-grade pancreatitis. 2. Common bile duct stent noted in place. There is no evidence of intrahepatic biliary duct dilatation. 3. Significant soft tissue fullness in the bret hepatis surrounding the proximal portion of the stent. 4. Status post cholecystectomy. 5. Gastric balloon of the gastrojejunostomy as migrated into the stomach and needs to be pulled back and secured. 6. Degenerative anterolisthesis at L5-S1 with advanced degenerative changes in the lower lumbar spine. 7. Mild airspace disease left base. Baron F. Aleida, MD Abdomen X-Ray 03/03/18 0000 Signed Impressions: Service Date/Time: February 06:40 - CONCLUSION: No concerning abnormalities seen. MD Ahmet Luna VTE Risk Assessment Baileei VTE Risk Assessment: Mod/High Risk (score >= 2) Caprini Risk Assessment Model Point Value = 1 Point Value = 2 Point Value = 3 Point Value = 5 Age 41-60 Minor surgery BMI > 25 kg/m2 Swollen legs Varicose veins or History of unexplained or recurrent spontaneous Oral contraceptives or hormone replacement Sepsis (< 1 month) Serious lung disease, including pneumonia (< 1 month) Abnormal pulmonary function Acute myocardial infarction Congestive heart failure (< 1 month) History of inflammatory bowel disease Medical patient at bed rest Age 61-74 Arthroscopic surgery Major open surgery (> 45 min) Laparoscopic surgery (> 45 min) Malignancy Confined to bed (> 72 hours) Immobilizing plaster cast Central venous access Age >= 75 History of VTE Family history of VTE Factor V Leiden Prothrombin [id number] Lupus anticoagulant Anticardiolipin antibodies Elevated serum homocysteine Heparin-induced thrombocytopenia Other congenital or acquired thrombophilia Stroke (< 1 month) Elective arthroplasty Hip, pelvis, or leg fracture Acute spinal cord injury (< 1 month) Prophylaxis Regimen Total Risk Factor Score Risk Level Prophylaxis Regimen 0-1 Low Early ambulation 2 Moderate Order ONE of the following: *Sequential Compression Device (SCD) *Heparin 5000 units SQ BID 3-4 Higher Order ONE of the following medications: *Heparin 5000 units SQ TID *Enoxaparin/Lovenox 40 mg SQ daily (WT < 150 kg, CrCl > 30 mL/min) *Enoxaparin/Lovenox 30 mg SQ daily (WT < 150 kg, CrCl > 10-29 mL/min) *Enoxaparin/Lovenox 30 mg SQ BID (WT < 150 kg, CrCl > 30 mL/min) AND/OR *Sequential Compression Device (SCD) 5 or more Highest Order ONE of the following medications: *Heparin 5000 units SQ TID (Preferred with Epidurals) *Enoxaparin/Lovenox 40 mg SQ daily (WT < 150 kg, CrCl > 30 mL/min) *Enoxaparin/Lovenox 30 mg SQ daily (WT < 150 kg, CrCl > 10-29 mL/min) *Enoxaparin/Lovenox 30 mg SQ BID (WT < 150 kg, CrCl > 30 mL/min) AND *Sequential Compression Device (SCD) Assessment and Plan Problem List: (1) Pancreatitis, recurrent ICD Codes: K86.1 - Recurrent pancreatitis Status: Chronic Plan: Recurrent Idiopathic pancreatitis Abdominal pain Elevated LFTs Biliary obstruction Leukocytosis - Pt is an 82 y/o female with recurrent idiopathic pancreatitis. Pt was evaluated with ERCP was during her last admission on 06/10/17 --> pt had prior sphincterotomy and a metal stent in the bile duct and were able to obtain easy cannulation of the common bile duct but the stent was clogged up with sludge and stones and so using an 8 mm balloon the stent and the distal CBD were cleaned out then was lavaged and then further cleaning was performed and then an obstructive cholangiogram was finally able to clear the common bile duct of all filling defects. - Pt presented to the ED at [facility] on 03/03/18 with complaints of worsening abdominal pain, N/V for the last 2-3 days. She reports that the pain is the same pain that she has had previously with her pancreatitis. - Her labs in the ED revealed WBC count 22, Cr 2.84/BUN 38, TBili 1.8, AST 646, ALT 461, AlkPhos 349. - CT Abd/pelvis (03/03) --> Vvery mild peripancreatic fluid stranding which may represent low-grade pancreatitis, common bile duct stent noted in place, no evidence of intrahepatic biliary duct dilatation, significant soft tissue fullness in the bret hepatis surrounding the proximal portion of the stent, s/ p cholecystectomy, gastric balloon of the gastrojejunostomy as migrated into the stomach and needs to be pulled back and secured, and degenerative anterolisthesis at L5-S1 with advanced degenerative changes in the lower lumbar spine and mild airspace disease left base. - Keep pt NPO except meds - Give IVF - Pain control PRN with [facility] and Morphine PRN - Consult GI - Monitor labs - Supportive care - DVT prophylaxis with SCDs Acute on chronic kidney disease, stage 3 - May be related to some degree of dehydration - Give IVF - Monitor labs GERD - PPI (2) Abdominal pain ICD Codes: R10.9 - Abdominal pain Status: Chronic (3) Elevated liver enzymes ICD Codes: R74.8 - Abnormal levels of other serum enzymes Status: Acute (4) Acute on chronic kidney disease, stage 3 ICD Codes: N18.3 - Acute worsening of stage 3 chronic kidney disease Status: Chronic (5) Leukocytosis ICD Codes: D72.829 - Leukocytosis Status: Acute Physician Certification 2 Midnight Certification Type: Admission for Inpatient Services Order for Inpatient Services The services are ordered in accordance with Medicare regulations or non- Medicare payer requirements, as applicable. In the case of services not specified as inpatient-only, they are appropriately provided as inpatient services in accordance with the 2-midnight benchmark. Estimated LOS (days): 3 3 days is the estimated time the patient will need to remain in the hospital, assuming treatment plan goals are met and no additional complications. Post-Hospital Plan: Not yet determined Problem Qualifiers (1) Abdominal pain: Qualified Codes: R10.9 - Unspecified abdominal pain Guadalupe Monson Mar 03, 2018 10:50
[2018-03-03 11:05] VITALS: BP 140/97; PULSE 93; RESP 18; O2SAT 96
[2018-03-03] MEDS ORDERED: LIDOCAINE HCL 1% PF 5 ML SYRINGE OTHER ONE (12:00)
[2018-03-03] MEDS ORDERED: PROPOFOL 200 MG/20 ML AMP IV ONE (12:00)
[2018-03-03] MEDS ORDERED: STERILE WATER FOR INJECTION 20 ML VIAL IV ONE (12:00)
[2018-03-03] MEDS ORDERED: SUCCINYLCHOLINE CHLORIDE 200 MG/10 ML VIAL IV ONE (12:00)
[2018-03-03] MEDS ORDERED: PIPERACIL-TAZO 3.375 GM PREMIX 50 ML IV SCH (12:30)
[2018-03-03] MEDS ORDERED: ACETAMINOPHEN 325 MG TAB PO PRN (12:45)
[2018-03-03] MEDS: SODIUM CHLOR 0.9% 1000 ML INJ 1,000 ML IV SCH ×2 (12:55→23:31)
[2018-03-03] MEDS: PANTOPRAZOLE SODIUM 40 MG VIAL IV PUSH SCH ×2 (12:56→23:31)
[2018-03-03] MEDS: LIPASE/PROTEASE/AMYLASE (12,000/38,000/60,000) CAP PO SCH ×2 (14:19→18:30)
[2018-03-03 14:20] VITALS: BP 115/64; PULSE 75; RESP 18; O2SAT 99
--- NOTE | 2018-03-03 14:38 | PD.CONS ---
HPI History of Present Illness This is a 82 year old female who was evaluated in the emergency room on 2017. According to the record and patient she has had chronic pancreatitis for greater than 5 years but states that abdominal pain had gotten worse over the past 2-3 days. She notes some upper mid abdominal tenderness and soreness with some radiation over to the right upper quadrant. Pain scale 8 out of 10 when first arriving has decreased to 4 /10 now. Aggravating factors to her abdominal pain was eating, also worsened over the past 3 days. According to the record patient had biliary obstruction 05/2017 and was evaluated and had ERCP during that admission per Dr. Ortega. According to the record also has prior sphincterotomy with metal stent in the bile duct which required lavage and cleaning. Her current symptoms are nausea and vomiting, acute onset this early a.m.. She also notes her BM to be normal consistency but come out in pieces this a.m. Patient does note decreased appetite patient denies any rectal bleeding or hematemesis. She denies any dysphasia no fever no chills. Current hemoglobin is 13.4. She does note EGD: In the past but unknown date. Patient is unable to give simple answers but is a fair to poor historian for her history time. Current abdominal pelvis CT done today January 03, 2018 showed very mild peripancreatic fluid stranding which may represent low-grade pancreatitis common bile duct stent noted no evidence of intrahepatic biliary duct dilatation. Mild airspace disease on the left base and degenerative disc changes. PFSH Past Medical History Chronic pancreatitis Chronic kidney disease stage III GERD Hypertension Anxiety Past Surgical History According to the record , hemorrhoid surgery ERCPs EUS G J-tube Celiac plexus block Lap ruth Cataract surgery Coded Allergies: No Known Allergies (Verified Allergy, Unknown, 03/03/18) Medications Administered Medications Medications (Trade) Dose Ordered Sig/Kirill Route PRN Reason Start Time Stop Time Status Last Admin Dose Admin Sodium Chloride 1,000 ml @ 84 mls/hr [id number] IV 03/03/18 10:00 03/03/18 12:55 Pantoprazole Sodium (Protonix Inj) 40 mg Q12H IV PUSH 03/03/18 11:00 03/03/18 12:56 Family History No family history of colon cancer Social History No tobacco, alcohol, or illicit drugs Patient is single, contact daughter's name is Caitlyn Review of Systems Gastrointestinal: COMPLAINS OF: Abdominal pain, Nausea, Vomiting (This a.m. but now has subsided) GI Exam Vitals I&O Vital Signs Date Time Temp Pulse Resp B/P (MAP) Pulse Ox O2 Delivery O2 Flow Rate FiO2 03/03/18 11:05 93 18 140/97 (111) 96 Room Air 03/03/18 05:56 98.2 98 18 102/58 (73) I/O 03/02/18 03/02/18 03/02/18 03/03/18 03/03/18 03/03/18 07:00 15:00 23:00 07:00 15:00 23:00 Intake Total 1050 ml Balance 1050 ml Intake IV Total 1050 ml Imaging Last Impressions Abdomen/Pelvis CT 03/03/18 0820 Signed Impressions: Service Date/Time: February 09:06 - CONCLUSION: 1. Very mild peripancreatic fluid stranding which may represent low-grade pancreatitis. 2. Common bile duct stent noted in place. There is no evidence of intrahepatic biliary duct dilatation. 3. Significant soft tissue fullness in the bret hepatis surrounding the proximal portion of the stent. 4. Status post cholecystectomy. 5. Gastric balloon of the gastrojejunostomy as migrated into the stomach and needs to be pulled back and secured. 6. Degenerative anterolisthesis at L5-S1 with advanced degenerative changes in the lower lumbar spine. 7. Mild airspace disease left base. Baron Shin MD Abdomen X-Ray 03/03/18 0000 Signed Impressions: Service Date/Time: February 06:40 - CONCLUSION: No concerning abnormalities seen. Meeta De Dios MD Laboratory Test 03/03/18 07:35 03/03/18 08:50 03/03/18 10:20 White Blood Count 22.8 TH/MM3 Red Blood Count 4.72 MIL/MM3 Hemoglobin 13.4 GM/DL Hematocrit 41.4 % Mean Corpuscular Volume 87.8 FL Mean Corpuscular Hemoglobin 28.4 PG Mean Corpuscular Hemoglobin Concent 32.3 % Red Cell Distribution Width 14.0 % Platelet Count 176 TH/MM3 Mean Platelet Volume 9.2 FL Neutrophils (%) (Auto) 95.1 % Lymphocytes (%) (Auto) 1.2 % Monocytes (%) (Auto) 3.0 % Eosinophils (%) (Auto) 0.0 % Basophils (%) (Auto) 0.7 % Neutrophils # (Auto) 21.7 TH/MM3 Lymphocytes # (Auto) 0.3 TH/MM3 Monocytes # (Auto) 0.7 TH/MM3 Eosinophils # (Auto) 0.0 TH/MM3 Basophils # (Auto) 0.2 TH/MM3 CBC Comment AUTO DIFF Differential Total Cells Counted 100 Neutrophils % (Manual) 60 % Band Neutrophils % 34 % Lymphocytes % 2 % Monocytes % 4 % Neutrophils # (Manual) 21.4 TH/MM3 Differential Comment FINAL DIFF MANUAL Toxic Vacuolation PRESENT Platelet Estimate NORMAL Platelet Morphology Comment NORMAL Red Cell Morphology Comment NORMAL Blood Urea Nitrogen 38 MG/DL Creatinine 2.84 MG/DL Random Glucose 99 MG/DL Total Protein 7.3 GM/DL Albumin 3.6 GM/DL Calcium Level 9.2 MG/DL Alkaline Phosphatase 349 U/L Aspartate Amino Transf (AST/SGOT) 646 U/L Alanine Aminotransferase (ALT/SGPT) 461 U/L Total Bilirubin 1.8 MG/DL Sodium Level 143 MEQ/L Potassium Level 4.0 MEQ/L Chloride Level 110 MEQ/L Carbon Dioxide Level 22.7 MEQ/L Anion Gap 10 MEQ/L Estimat Glomerular Filtration Rate 19 ML/MIN Lipase 111 U/L Lactic Acid Level 1.2 mmol/L Urine Color YELLOW Urine Turbidity CLEAR Urine pH 5.5 Urine Specific [place] 1.014 Urine Protein TRACE mg/dL Urine Glucose (UA) NEG mg/dL Urine Ketones NEG mg/dL Urine Occult Blood NEG Urine Nitrite NEG Urine Bilirubin NEG Urine Urobilinogen 2.0 MG/DL Urine Leukocyte Esterase MOD Urine RBC 1 /hpf Urine WBC 7 /hpf Urine Squamous Epithelial Cells 1 /hpf Urine Mucus FEW /lpf Microscopic Urinalysis Comment CULT NOT INDICATED Date/Time Source Procedure Growth Status 03/03/18 08:45 Blood Peripheral Aerobic Blood Culture Pending Received 03/03/18 08:45 Blood Peripheral Anaerobic Blood Culture Pending Received Physical Examination HEENT: Normocephalic, atraumatic, [place], NECK: Neck is supple, no obvious JVD, CHEST: Chest mild diminished breath sounds in left base, no audible rhonchi CARDIAC: Regular rate and rhythm ABDOMEN: Soft, nondistended, nontender; no hepatosplenomegaly; bowel sounds are present in all four quadrants. EXTREMITIES: No clubbing, cyanosis, or edema. SKIN: Normal; no rash; no jaundice. Mucous membranes moist and pink FEATHER DUSTER WINDER: Awake, comfortable, speech understandable and clear Assessment and Plan Plan Pancreatitis, acute on chronic, patient has been hospitalized and dealt with recurrent bouts she states for greater than 5 years, current symptoms worsening over the past 3 days with pain after eating, nausea vomiting this early a.m., stool formed brown but into pieces. Patient denies any upper or lower GI bleeding to her knowledge, no obvious heartburn. She is positive for abdominal pain with special attention to her mid upper abdominal area and right upper quadrant. Plan Consent for ERCP today, procedure explained to patient N.p.o. now IV hydration Pain management per attending Monitor labs Anti-emetics Creon Protonix Supportive care Patient was seen per myself , Dr. Musa, planned for ERCP procedure, note was written on his behalf Jordana Sebastian Mar 03, 2018 14:38
[2018-03-03] MEDS: PIPERACIL-TAZO 2.25 GM PREMIX 50 ML IV SCH ×2 (15:25→21:20)
[2018-03-03] MEDS ORDERED: POVIDONE IODINE 5% (ANTISEPSIS KIT) 4 APPLICATIONS EACH NARE PRN (16:15)
[2018-03-03] MEDS ORDERED: METOPROLOL TARTRATE 25 MG TAB PO PRN (16:15)
[2018-03-03] MEDS ORDERED: SODIUM CHLORID 0.9% 500 ML IV PRN (16:15)
[2018-03-03] MEDS ORDERED: CHLORHEXIDINE GLUCONATE 2 % 1 PACK (2 CLOTHS) TOPICAL PRN (16:15)
[2018-03-03] MEDS ORDERED: LACTATED RINGER'S 1000 ML IV PRN (16:15)
[2018-03-03] MEDS ORDERED: GLUCAGON 1 MG/ML VIAL ONE (17:04)
[2018-03-03] MEDS ORDERED: IOHEXOL 300 INJ 50 ML IV ONE (17:15)
[2018-03-03] MEDS ORDERED: *ONDANSETRON 4 MG VIAL PERIprocedural Use ONLY ONE (18:15)
[2018-03-03] MEDS ORDERED: DO NOT ADM ANY ANTICOAGULANT DRUGS PRN (19:45)
[2018-03-03 20:00] VITALS: BP 123/76; PULSE 61; RESP 18; TEMP 97.7; O2SAT 100
[2018-03-03] MEDS: METOPROLOL TARTRATE 25 MG TAB PO SCH (21:00)
[2018-03-03] MEDS: MORPHINE SULFATE 4 MG/ML INJ IV PUSH PRN (21:21)
[2018-03-04] VITALS: BP_SYST 120; BP_SYST 158; BP_DIAS 70; BP_DIAS 72; PULSE 65; PULSE 70; RESP 18; TEMP 98.1; TEMP 98.7; O2SAT 97; O2SAT 99
[2018-03-04] MEDS: PIPERACIL-TAZO 2.25 GM PREMIX 50 ML IV SCH ×4 (02:36→20:24)
[2018-03-04] MEDS: ACETAMINOPHEN/HYDROcodone 325 MG/5 MG TAB PO PRN ×4 (04:26→20:23)
[2018-03-04 05:00] VITALS: BP 130/80; PULSE 65; RESP 18; TEMP 98.5; O2SAT 100
[2018-03-04 07:00] VITALS: BP 130/63; PULSE 81; RESP 20; TEMP 98.1; O2SAT 99
[2018-03-04 07:32] LABS: AUTOMATED NEUTROPHIL # 14.9 TH/MM3 (1.8-7.7); BASOPHIL # 0.1 TH/MM3 (0-0.2); BASOPHIL % 0.3 % (0.0-2.0); EOSINOPHIL # 0.1 TH/MM3 (0-0.4); EOSINOPHIL % 0.4 % (0.0-4.0); HEMATOCRIT 30.2 % (35.0-46.0); HEMOGLOBIN 9.8 GM/DL (11.6-15.3); LYMPH % 5.2 % (9.0-44.0); LYMPHOCYTE # 0.9 TH/MM3 (1.0-4.8); MEAN CELL VOLUME 87.5 FL (80.0-100.0); MEAN CORPUSCULAR HEMOGLOBIN 28.4 PG (27.0-34.0); MEAN CORPUSCULAR HGB CONC 32.4 % (32.0-36.0); MONO % 4.6 % (0.0-8.0); MONOCYTE # 0.8 TH/MM3 (0-0.9); NEUT % 89.5 % (16.0-70.0); PLATELET COUNT 166 TH/MM3 (150-450); RED BLOOD COUNT 3.46 MIL/MM3 (4.00-5.30); RED CELL DISTRIBUTION WIDTH 13.9 % (11.6-17.2); WHITE BLOOD COUNT 16.6 TH/MM3 (4.0-11.0)
[2018-03-04 08:14] LABS: ALBUMIN 2.5 GM/DL (3.4-5.0); ALKALINE PHOSPHATASE 220 U/L (45-117); ALT (GPT) 259 U/L (10-53); AST (GOT) 151 U/L (15-37); BICARBONATE 21.9 MEQ/L (21.0-32.0); BLOOD UREA NITROGEN 40 MG/DL (7-18); CHLORIDE 115 MEQ/L (98-107); CREATININE 2.73 MG/DL (0.50-1.00); GLOMERULAR FILTRATION RATE 20 ML/MIN (>89); GLUCOSE,RANDOM 83 MG/DL (74-106); SODIUM (NA) 147 MEQ/L (136-145); TOTAL BILIRUBIN ADULT 2.1 MG/DL (0.2-1.0); TOTAL PROTEIN 5.8 GM/DL (6.4-8.2)
[2018-03-04] MEDS: DILTIAZEM-CD 120 MG CAP ER PO SCH (08:15)
[2018-03-04] MEDS: METOPROLOL TARTRATE 25 MG TAB PO SCH ×2 (08:15→20:23)
[2018-03-04] MEDS: LIPASE/PROTEASE/AMYLASE (12,000/38,000/60,000) CAP PO SCH ×3 (08:17→17:40)
[2018-03-04] MEDS: ONDANSETRON HCL 4 MG/2 ML VIAL IV PRN (08:18)
[2018-03-04] MEDS: SODIUM CHLOR 0.9% 1000 ML INJ 1,000 ML IV SCH ×2 (08:20→21:45)
--- NOTE | 2018-03-04 09:17 | HHI.PR ---
Subjective Remarks still with epigastric pain. Objective Vitals lying in bed oriented heart reg lung cta abd epigastric tenderness/bs/no rebound ext no edema Vital Signs Date Time Temp Pulse Resp B/P (MAP) Pulse Ox O2 Delivery O2 Flow Rate FiO2 03/04/18 05:00 98.5 65 18 130/80 (97) 100 03/04/18 00:00 98.1 70 18 120/70 (87) 99 03/03/18 22:50 Nasal Cannula 2.00 03/03/18 20:00 97.7 61 18 123/76 (92) 100 03/03/18 18:45 97.5 69 18 134/60 (84) 100 Nasal Cannula 2 03/03/18 18:30 66 15 137/59 (85) 100 Nasal Cannula 2 03/03/18 18:15 66 15 137/59 (85) 100 Nasal Cannula 2 03/03/18 18:06 97.5 70 17 129/60 (83) 100 Nasal Cannula 2 03/03/18 14:20 75 18 115/64 (81) 99 Room Air 03/03/18 11:05 93 18 140/97 (111) 96 Room Air Result Diagram: 03/04/18 0537 03/04/18 0537 Imaging Last Impressions Abdomen/Pelvis CT 03/03/18 0820 Signed Impressions: Service Date/Time: February 09:06 - CONCLUSION: 1. Very mild peripancreatic fluid stranding which may represent low-grade pancreatitis. 2. Common bile duct stent noted in place. There is no evidence of intrahepatic biliary duct dilatation. 3. Significant soft tissue fullness in the bret hepatis surrounding the proximal portion of the stent. 4. Status post cholecystectomy. 5. Gastric balloon of the gastrojejunostomy as migrated into the stomach and needs to be pulled back and secured. 6. Degenerative anterolisthesis at L5-S1 with advanced degenerative changes in the lower lumbar spine. 7. Mild airspace disease left base. Baron Shin MD Abdomen X-Ray 03/03/18 0000 Signed Impressions: Service Date/Time: February 06:40 - CONCLUSION: No concerning abnormalities seen. Meeta De Dios MD A/P Problem List: (1) Pancreatitis, recurrent ICD Codes: K86.1 - Recurrent pancreatitis Status: Acute Plan: Recurrent Idiopathic pancreatitis Abdominal pain Elevated LFTs Biliary obstruction GNR biliary sepsis - Pt is an 82 y/o female with recurrent idiopathic pancreatitis. Pt was evaluated with ERCP was during her last admission on 06/10/17 --> pt had prior sphincterotomy and a metal stent in the bile duct and were able to obtain easy cannulation of the common bile duct but the stent was clogged up with sludge and stones and so using an 8 mm balloon the stent and the distal CBD were cleaned out then was lavaged and then further cleaning was performed and then an obstructive cholangiogram was finally able to clear the common bile duct of all filling defects. - Pt presented to the ED at [facility] on 03/03/18 with complaints of worsening abdominal pain, N/V for the last 2-3 days. She reports that the pain is the same pain that she has had previously with her pancreatitis. - Her labs in the ED revealed WBC count 22, Cr 2.84/BUN 38, TBili 1.8, AST 646, ALT 461, AlkPhos 349. - CT Abd/pelvis (03/03) --> Vvery mild peripancreatic fluid stranding which may represent low-grade pancreatitis, common bile duct stent noted in place, no evidence of intrahepatic biliary duct dilatation, significant soft tissue fullness in the bret hepatis surrounding the proximal portion of the stent, s/ p cholecystectomy, gastric balloon of the gastrojejunostomy as migrated into the stomach and needs to be pulled back and secured, and degenerative anterolisthesis at L5-S1 with advanced degenerative changes in the lower lumbar spine and mild airspace disease left base. - Keep pt NPO except meds - Give IVF - cont iv abx. gnr sepsis. f/u cx. - Pain control PRN with [place] and Morphine PRN - ERCP last night to clean sludge from stent Going to IR today for PTC - Monitor labs - DVT prophylaxis with SCDs Acute on chronic kidney disease, stage 3 - May be related to some degree of dehydration - Give IVF - Monitor labs GERD - PPI (2) Elevated liver enzymes ICD Codes: R74.8 - Abnormal levels of other serum enzymes Status: Acute (3) Acute on chronic kidney disease, stage 3 ICD Codes: N18.3 - Acute worsening of stage 3 chronic kidney disease Status: Acute Bryan Quezada MD Mar 04, 2018 09:17
[2018-03-04] MEDS: PANTOPRAZOLE SODIUM 40 MG VIAL IV PUSH SCH ×2 (10:02→23:22)
[2018-03-04 10:24] VITALS: O2SAT 97
[2018-03-04 10:41] LABS: INTERNATIONAL NORMALIZED RATIO 1.3 RATIO; PROTHROMBIN TIME - PATIENT 13.4 SEC (9.8-11.6)
[2018-03-04] MEDS ORDERED: LEVOFLOXACIN 500 MG PREMIX INJ 100 ML IV ONE (11:46)
--- NOTE | 2018-03-04 11:48 | RADRPT ---
EXAM DATE/TIME: 03/03/2018 17:12 [place] COMPARISON: GI LAB ERCP, June 10, 2017, 10:09. INDICATIONS : Dilitation for stone obstruction. FLUORO TIME: 8.5 minutes IMAGE COUNT: 2 CONTRAST: Instilled by Ordering Physician MEDICAL HISTORY : None. SURGICAL HISTORY : None. ENCOUNTER: Initial ACUITY: 1 day PAIN SCORE: Non-responsive. LOCATION: Abdomen FINDINGS: An ERCP was performed by the ordering physician. The images demonstrate metal stent in good position. On film labeled #2 there is no residual contras t. CONCLUSION: ERCP as above. Jamie Tabor MD FACR on March 04, 2018 at 11:45 Board Certified Radiologist. This report was verified electronically.
[2018-03-04] MEDS ORDERED: *morphine SULFATE 4 MG/ML PERIprocedure ONLY ONE ×2 (13:54→14:02)
[2018-03-04] MEDS ORDERED: IOHEXOL 350 MG/ML 50 ML BTL (for RAD DIAG) OTHER ONE (14:00)
[2018-03-04] MEDS ORDERED: *MEPERIDINE 25 MG INJ VIAL PERIprocedural Use ONLY ONE (14:11)
[2018-03-04] MEDS ORDERED: DO NOT ADM ANY ANTICOAGULANT DRUGS PRN (15:00)
--- NOTE | 2018-03-04 16:03 | HHI.GIFU ---
Subjective Remarks Pt is resting in bed Just returned from IR Complaining of some site to PTC drain GJ tube clamped Complaints of nausea, denies emesis (Zahira Mora) Objective Vitals I&O Vital Signs Date Time Temp Pulse Resp B/P (MAP) Pulse Ox O2 Delivery O2 Flow Rate FiO2 03/04/18 14:51 65 18 130/68 (88) 100 03/04/18 14:40 63 18 128/62 (84) 100 03/04/18 14:25 62 18 140/65 (90) 100 03/04/18 14:10 73 18 144/65 (91) 100 03/04/18 13:54 97.9 80 18 137/64 (88) 100 03/04/18 10:24 97 21 03/04/18 07:00 98.1 81 20 130/63 (85) 99 03/04/18 05:00 98.5 65 18 130/80 (97) 100 03/04/18 00:00 98.1 70 18 120/70 (87) 99 03/03/18 22:50 Nasal Cannula 2.00 03/03/18 20:00 97.7 61 18 123/76 (92) 100 03/03/18 18:45 97.5 69 18 134/60 (84) 100 Nasal Cannula 2 03/03/18 18:30 66 15 137/59 (85) 100 Nasal Cannula 2 03/03/18 18:15 66 15 137/59 (85) 100 Nasal Cannula 2 03/03/18 18:06 97.5 70 17 129/60 (83) 100 Nasal Cannula 2 I/O 03/03/18 03/03/18 03/03/18 03/04/18 03/04/18 03/04/18 07:00 15:00 23:00 07:00 15:00 23:00 Intake Total 1050 ml 400 ml Balance 1050 ml 400 ml Intake IV Total 1050 ml 0 ml Other 400 ml # Voids 1 Laboratory Laboratory Tests Test 03/04/18 05:37 03/04/18 10:15 White Blood Count 16.6 Red Blood Count 3.46 Hemoglobin 9.8 Hematocrit 30.2 Mean Corpuscular Volume 87.5 Mean Corpuscular Hemoglobin 28.4 Mean Corpuscular Hemoglobin Concent 32.4 Red Cell Distribution Width 13.9 Platelet Count 166 Mean Platelet Volume 10.0 Neutrophils (%) (Auto) 89.5 Lymphocytes (%) (Auto) 5.2 Monocytes (%) (Auto) 4.6 Eosinophils (%) (Auto) 0.4 Basophils (%) (Auto) 0.3 Neutrophils # (Auto) 14.9 Lymphocytes # (Auto) 0.9 Monocytes # (Auto) 0.8 Eosinophils # (Auto) 0.1 Basophils # (Auto) 0.1 CBC Comment DIFF FINAL Differential Comment Blood Urea Nitrogen 40 Creatinine 2.73 Random Glucose 83 Total Protein 5.8 Albumin 2.5 Calcium Level 8.0 Magnesium Level 2.0 Alkaline Phosphatase 220 Aspartate Amino Transf (AST/SGOT) 151 Alanine Aminotransferase (ALT/SGPT) 259 Total Bilirubin 2.1 Sodium Level 147 Potassium Level 4.2 Chloride Level 115 Carbon Dioxide Level 21.9 Anion Gap 10 Estimat Glomerular Filtration Rate 20 Lipase 49 Prothrombin Time 13.4 Prothromb Time International Ratio 1.3 Date/Time Source Procedure Growth Status 03/03/18 08:45 Blood Peripheral Aerobic Blood Culture - Preliminary NO GROWTH IN 1 DAY Resulted 03/03/18 08:45 Anaerobic Blood Culture - Preliminary Gram Negative Tre Resulted Imaging Last Impressions Abdomen/Pelvis CT 03/03/18 0820 Signed Impressions: Service Date/Time: February 09:06 - CONCLUSION: 1. Very mild peripancreatic fluid stranding which may represent low-grade pancreatitis. 2. Common bile duct stent noted in place. There is no evidence of intrahepatic biliary duct dilatation. 3. Significant soft tissue fullness in the bret hepatis surrounding the proximal portion of the stent. 4. Status post cholecystectomy. 5. Gastric balloon of the gastrojejunostomy as migrated into the stomach and needs to be pulled back and secured. 6. Degenerative anterolisthesis at L5-S1 with advanced degenerative changes in the lower lumbar spine. 7. Mild airspace disease left base. Baron Shin MD GI Procedure 03/03/18 0000 Signed Impressions: Service Date/Time: February 17:12 - CONCLUSION: ERCP as above. Jamie Tabor MD FACR Abdomen X-Ray 03/03/18 0000 Signed Impressions: Service Date/Time: February 06:40 - CONCLUSION: No concerning abnormalities seen. Meeta De Dios MD Physical Exam HEENT: Normocephalic; atraumatic CHEST: Even/unlabored CARDIAC: RRR ABDOMEN: Soft, nondistended, bowel sounds active. GJ tube clamped. PTC drain with 40 mL of drainage SKIN: Normal; no rash; no jaundice. PROCUREMENT CONSULTANT: No focal deficits; alert and oriented times three. (Zahira Mora) Assessment and Plan Plan Assessment: - Acute on chronic pancreatitis- secondary to gallstones S/P ERCP yesterday --> Multiple stones, migrated metal stent up into CBD, could not put plastic stent due to kink in current stent S/P IR for PTC today, pt returned from IR just prior to my exam, report pending. PTC drain with 40 mL of bile colored drainage Current labs trending down: AST-151 ALT-259 Alk phos-220 T bili-2.1 CT abdomen and pelvis W/O IV contrast (03/03) --> Very mild peripancreatic fluid stranding which may represent low-grade pancreatitis. Common bile duct stent noted in place. There is no evidence of intrahepatic biliary duct dilatation. Significant soft tissue fullness in the bret hepatis surrounding the proximal portion of the stent. Status post cholecystectomy. Gastric balloon of the gastrojejunostomy as migrated into the stomach and needs to be pulled back and secured. Degenerative anterolisthesis at L5-S1 with advanced degenerative changes in the lower lumbar spine. Mild airspace disease left base. Previous CROSS: EUS in 2016 revealed unremarkable pancreas IgG4 25.1 JING negative CA 19-9 42.3 (Dec 2015) - G/J tube- currently clamped Plan: Monitor labs Supportive care with anti-emetics and pain medication Protonix Creon with feedings Zosyn Monitor PTC drain output Further recommendations based on clinical course Pt has been seen and examined by myself and Dr. Schwartz and this note is written on her behalf Plan (Zahira Mora) Physician Comments seen, examined agree with above g/j tube markings at 10, balloon deflated and reinflated after moving tube up, markings at 3 clear liquid diet Gastrografin study via peg tube we will discuss with IR regarding best approach for biliary stent , possible combined procedure IR/ERCP and placement of a new metallic stent (Chula Schwartz MD) Zahira Mora Mar 04, 2018 16:03 Chula Schwartz MD Mar 04, 2018 16:14
--- NOTE | 2018-03-04 16:16 | RADRPT ---
EXAM DATE/TIME: 03/04/2018 12:02 [facility] COMPARISON: No previous studies available for comparison. INDICATIONS : 82 year-old female with history of recurrent idiopathic pancreatitis requiring multiple biliary stent placements with eventual metallic stent placed. Patient is status post debridement of the biliary st ent secondary to significant sludge and stones in May. Patient again presents with biliary obstructi on and repeat attempt was unsuccessful due to the apparent obstruction of the proximal stent. Percuta neous transhepatic biliary drainage has been requested. MEDICAL HISTORY : Idiopathic recurrent pancreatitis CKD, stage 3 Anxiety GERD HTN SURGICAL HISTORY : Lap ruth Cataract surgery Hemorrhoid surgery ERCP EUS GJ tube Celiac plexus block ENCOUNTER: Initial ACUITY: 1 day PAIN SCORE: 7/10 LOCATION: Abdomen FLUORO TIME: 33.9 minutes IMAGE SERIES: 5 CONTRAST: 20 cc Omnipaque (iohexol) 350 MEDICATION(S): 1.) 500 mg levofloxacin (Levaquin) IV DEVICE(S): 1.) 8 Filipino biliary drain Flexima RO firm Anesthesia and pain control was provided by the Anesthesia department. PROCEDURE : 1. Ultrasound guided puncture of the biliary tree. 2. Percutaneous antegrade cholangiogram. 3. Biliary stent placement. The risks, benefits and alternatives to the procedure were explained and verbal and written consent w as obtained. The site was prepped in sterile fashion. Full sterile technique was used, including ca p, mask, sterile gloves and gown and a large sterile sheet. Hand hygiene and 2% chlorhexidine and/or betadine/alcohol prep was utilized per protocol for cutaneous antisepsis. Sterile gel and sterile p robe cover were utilized for ultrasound guidance. The skin and subcutaneous tissues were infiltrated with local anesthetic solution. With ultrasound and fluoroscopic guidance the biliary tree was punctured with a 22 gauge Chiba needle and the biliary tree was opacified. An Accustick set was used to gain access to the biliary tree and a guidewire was passed into the duodenum. This required multiple wires and catheters due to very sev ere obstruction of the proximal stent with significant resistance to passage of guidewires. Eventuall y a stiff Glidewire was successfully advanced into the duodenum and position was confirmed with small amount contrast. Serial dilatation was performed to accept the prescribed catheter. Injection of pos itive contrast demonstrates appropriate position. CONCLUSION: 1. Very severe obstruction of the proximal common bile duct stent with very challenging recanalizatio n requiring multiple wires and catheters. 2. Uncomplicated biliary stent placement as above. Plan: Patient may require upsizing of the catheter as only an 8 Filipino catheter could be placed. skilled nursing, consideration may be given to extending the stent centrally and distally although sufficient r adial strength to allow for stent deployment in the currently obstructed proximal stent is of signifi cant concern. Bhavin Montemayor MD on March 04, 2018 at 15:19 Board Certified Radiologist. This report was verified electronically.
--- NOTE | 2018-03-04 17:23 | RADRPT ---
EXAM DATE/TIME: 03/04/2018 16:53 [facility] COMPARISON: BILIARY DRAINAGE W STENT PLACE, March 04, 2018, 12:02. INDICATIONS : Evaluate PEG tube placement. MEDICAL HISTORY : Hypertension. SURGICAL HISTORY : Cholecystectomy. ENCOUNTER: Initial ACUITY: 2 days PAIN SCORE: 0/10 LOCATION: Abdomen. FINDINGS: Examination of the abdomen demonstrates a normal bowel gas pattern. No free air is identified. No o rganomegaly is evident. Tube is in the proximal jejunum. Drainage tube is seen which has intrabilia ry stent. . Osseous structures are intact. CONCLUSION: No evidence of obstruction. Tube in the jejunum. Jamie Tabor MD FACR on March 04, 2018 at 17:19 Board Certified Radiologist. This report was verified electronically.
[2018-03-04 20:00] VITALS: BP 158/72; PULSE 65; RESP 18; TEMP 98.7; O2SAT 97
[2018-03-05] VITALS (7 sets, daily range): BP systolic 135–163; BP diastolic 67–77; PULSE 67–80; RESP 18–20; TEMP 98.1–99.9; O2SAT 97–99
[2018-03-05] MEDS: ACETAMINOPHEN/HYDROcodone 325 MG/5 MG TAB PO PRN ×4 (00:05→20:39)
[2018-03-05] MEDS: PIPERACIL-TAZO 2.25 GM PREMIX 50 ML IV SCH ×4 (02:34→20:39)
[2018-03-05] MEDS: ONDANSETRON HCL 4 MG/2 ML VIAL IV PRN (07:12)
[2018-03-05] MEDS: MORPHINE SULFATE 4 MG/ML INJ IV PUSH PRN ×4 (08:06→18:04)
[2018-03-05] MEDS: METOPROLOL TARTRATE 25 MG TAB PO SCH ×2 (08:07→20:39)
[2018-03-05] MEDS: LIPASE/PROTEASE/AMYLASE (12,000/38,000/60,000) CAP PO SCH ×3 (08:07→18:03)
[2018-03-05] MEDS: DILTIAZEM-CD 120 MG CAP ER PO SCH (08:07)
[2018-03-05] MEDS: SODIUM CHLOR 0.9% 1000 ML INJ 1,000 ML IV SCH ×2 (08:08→20:42)
[2018-03-05] MEDS: PANTOPRAZOLE SODIUM 40 MG VIAL IV PUSH SCH ×2 (08:08→23:07)
[2018-03-05 09:28] LABS: AUTOMATED NEUTROPHIL # 9.8 TH/MM3 (1.8-7.7); BASOPHIL % 0.4 % (0.0-2.0); EOSINOPHIL # 0.2 TH/MM3 (0-0.4); EOSINOPHIL % 1.5 % (0.0-4.0); HEMATOCRIT 33.4 % (35.0-46.0); HEMOGLOBIN 10.8 GM/DL (11.6-15.3); LYMPH % 4.6 % (9.0-44.0); LYMPHOCYTE # 0.5 TH/MM3 (1.0-4.8); MEAN CELL VOLUME 87.3 FL (80.0-100.0); MEAN CORPUSCULAR HEMOGLOBIN 28.3 PG (27.0-34.0); MEAN CORPUSCULAR HGB CONC 32.4 % (32.0-36.0); MEAN PLATELET VOLUME 9.6 FL (7.0-11.0); MONO % 5.2 % (0.0-8.0); MONOCYTE # 0.6 TH/MM3 (0-0.9); NEUT % 88.3 % (16.0-70.0); PLATELET COUNT 156 TH/MM3 (150-450); RED BLOOD COUNT 3.82 MIL/MM3 (4.00-5.30); RED CELL DISTRIBUTION WIDTH 13.9 % (11.6-17.2); WHITE BLOOD COUNT 11.1 TH/MM3 (4.0-11.0)
[2018-03-05 09:53] LABS: ALBUMIN 2.6 GM/DL (3.4-5.0); BICARBONATE 22.1 MEQ/L (21.0-32.0); CALCIUM 8.3 MG/DL (8.5-10.1); CREATININE 2.59 MG/DL (0.50-1.00); DIRECT BILIRUBIN ADULT 0.6 MG/DL (0.0-0.2)
[2018-03-05 09:55] LABS: INDIRECT BILIRUBIN 0.5 MG/DL (0.0-0.8); TOTAL BILIRUBIN ADULT 1.1 MG/DL (0.2-1.0); TOTAL PROTEIN 6.5 GM/DL (6.4-8.2)
--- NOTE | 2018-03-05 11:32 | HHI.PR ---
Subjective Remarks still with abdomen pain Objective Vitals heart reg lung cta abd epigastric pain. bs ext no edema Vital Signs Date Time Temp Pulse Resp B/P (MAP) Pulse Ox O2 Delivery O2 Flow Rate FiO2 03/05/18 08:27 98.3 67 18 141/71 (94) 98 03/05/18 05:00 98.2 73 18 135/70 (91) 98 03/05/18 05:00 98.2 73 18 135/70 (91) 98 03/05/18 00:41 98.1 70 18 150/77 (101) 98 03/04/18 20:00 98.7 65 18 158/72 (100) 97 03/04/18 14:51 65 18 130/68 (88) 100 03/04/18 14:40 63 18 128/62 (84) 100 03/04/18 14:25 62 18 140/65 (90) 100 03/04/18 14:10 73 18 144/65 (91) 100 03/04/18 13:54 97.9 80 18 137/64 (88) 100 03/05/18 03/05/18 03/06/18 15:00 23:00 07:00 Output Total 90 ml Balance -90 ml Output Drainage Total 90 ml # Voids 4 Result Diagram: 03/05/18 0903 03/05/18 0903 Imaging Last Impressions Abdomen/Pelvis CT 03/03/18 0820 Signed Impressions: Service Date/Time: February 09:06 - CONCLUSION: 1. Very mild peripancreatic fluid stranding which may represent low-grade pancreatitis. 2. Common bile duct stent noted in place. There is no evidence of intrahepatic biliary duct dilatation. 3. Significant soft tissue fullness in the bret hepatis surrounding the proximal portion of the stent. 4. Status post cholecystectomy. 5. Gastric balloon of the gastrojejunostomy as migrated into the stomach and needs to be pulled back and secured. 6. Degenerative anterolisthesis at L5-S1 with advanced degenerative changes in the lower lumbar spine. 7. Mild airspace disease left base. Baron Shin MD Abdomen X-Ray 03/03/18 0000 Signed Impressions: Service Date/Time: February 06:40 - CONCLUSION: No concerning abnormalities seen. Meeta De Dios MD A/P Problem List: (1) Pancreatitis, recurrent ICD Codes: K86.1 - Recurrent pancreatitis Status: Acute Plan: Recurrent Idiopathic pancreatitis Abdominal pain Elevated LFTs Biliary obstruction GNR biliary sepsis - Pt is an 82 y/o female with recurrent idiopathic pancreatitis. Pt was evaluated with ERCP was during her last admission on 06/10/17 --> pt had prior sphincterotomy and a metal stent in the bile duct and were able to obtain easy cannulation of the common bile duct but the stent was clogged up with sludge and stones and so using an 8 mm balloon the stent and the distal CBD were cleaned out then was lavaged and then further cleaning was performed and then an obstructive cholangiogram was finally able to clear the common bile duct of all filling defects. - Pt presented to the ED at [facility] on 03/03/18 with complaints of worsening abdominal pain, N/V for the last 2-3 days. She reports that the pain is the same pain that she has had previously with her pancreatitis. - Her labs in the ED revealed WBC count 22, Cr 2.84/BUN 38, TBili 1.8, AST 646, ALT 461, AlkPhos 349. - CT Abd/pelvis (03/03) --> Vvery mild peripancreatic fluid stranding which may represent low-grade pancreatitis, common bile duct stent noted in place, no evidence of intrahepatic biliary duct dilatation, significant soft tissue fullness in the bret hepatis surrounding the proximal portion of the stent, s/ p cholecystectomy, gastric balloon of the gastrojejunostomy as migrated into the stomach and needs to be pulled back and secured, and degenerative anterolisthesis at L5-S1 with advanced degenerative changes in the lower lumbar spine and mild airspace disease left base. - ERCP 03/03. proximal cbd stent obstruction - PTC 03/04 IR : 1. severe obstruction of the proximal common bile duct stent with very challenging recanalization requiring multiple wires and catheters. 2. Uncomplicated biliary stent placement - IVF - cont iv abx. gnr sepsis. f/u cx. - Pain control PRN with [place] and Morphine PRN - Await further GI/IR intervention. - Monitor labs - DVT prophylaxis with SCDs Acute on chronic kidney disease, stage 3 - May be related to some degree of dehydration - Give IVF - Monitor labs GERD - PPI (2) Elevated liver enzymes ICD Codes: R74.8 - Abnormal levels of other serum enzymes Status: Acute (3) Acute on chronic kidney disease, stage 3 ICD Codes: N18.3 - Acute worsening of stage 3 chronic kidney disease Status: Acute Bryan Quezada MD Mar 05, 2018 11:32
--- NOTE | 2018-03-05 14:44 | HHI.GIFU ---
Subjective Remarks Pt resting in bed Complaining of continued abdominal pain Reports some nausea today but better than yesterday, denies emesis States she needs to have a BM now, notified RN PTC drain with approx 20 mL of bile colored drainage GJ tube clamped (Zahira Mora) Objective Vitals I&O Vital Signs Date Time Temp Pulse Resp B/P (MAP) Pulse Ox O2 Delivery O2 Flow Rate FiO2 03/05/18 11:29 98.7 69 20 151/69 (96) 97 03/05/18 08:27 98.3 67 18 141/71 (94) 98 03/05/18 05:00 98.2 73 18 135/70 (91) 98 03/05/18 05:00 98.2 73 18 135/70 (91) 98 03/05/18 00:41 98.1 70 18 150/77 (101) 98 03/04/18 20:00 98.7 65 18 158/72 (100) 97 03/04/18 14:51 65 18 130/68 (88) 100 03/04/18 14:40 63 18 128/62 (84) 100 I/O 03/04/18 03/04/18 03/04/18 03/05/18 03/05/18 03/05/18 07:00 15:00 23:00 07:00 15:00 23:00 Intake Total 50 ml 1188 ml Output Total 90 ml 110 ml 90 ml Balance -40 ml 1078 ml -90 ml Intake IV Total 50 ml 1188 ml Output Drainage Total 90 ml 110 ml 90 ml # Voids 1 2 3 4 Laboratory Laboratory Tests Test 03/05/18 09:03 White Blood Count 11.1 Red Blood Count 3.82 Hemoglobin 10.8 Hematocrit 33.4 Mean Corpuscular Volume 87.3 Mean Corpuscular Hemoglobin 28.3 Mean Corpuscular Hemoglobin Concent 32.4 Red Cell Distribution Width 13.9 Platelet Count 156 Mean Platelet Volume 9.6 Neutrophils (%) (Auto) 88.3 Lymphocytes (%) (Auto) 4.6 Monocytes (%) (Auto) 5.2 Eosinophils (%) (Auto) 1.5 Basophils (%) (Auto) 0.4 Neutrophils # (Auto) 9.8 Lymphocytes # (Auto) 0.5 Monocytes # (Auto) 0.6 Eosinophils # (Auto) 0.2 Basophils # (Auto) 0.0 CBC Comment DIFF FINAL Differential Comment Blood Urea Nitrogen 33 Creatinine 2.59 Random Glucose 104 Total Protein 6.5 Albumin 2.6 Calcium Level 8.3 Alkaline Phosphatase 202 Aspartate Amino Transf (AST/SGOT) 53 Alanine Aminotransferase (ALT/SGPT) 178 Total Bilirubin 1.1 Direct Bilirubin 0.6 Sodium Level 145 Potassium Level 4.2 Chloride Level 113 Carbon Dioxide Level 22.1 Anion Gap 10 Estimat Glomerular Filtration Rate 21 Indirect Bilirubin 0.5 Date/Time Source Procedure Growth Status 03/03/18 08:45 Blood Peripheral Aerobic Blood Culture - Preliminary NO GROWTH IN 2 DAYS Resulted 03/03/18 08:45 Anaerobic Blood Culture - Preliminary Gram Negative Tre Resulted Imaging Last Impressions Bile Duct Drainage 03/04/18 0000 Signed Impressions: Service Date/Time: Sunday, March 04, 2018 12:02 - CONCLUSION: 1. Very severe obstruction of the proximal common bile duct stent with very challenging recanalization requiring multiple wires and catheters. 2. Uncomplicated biliary stent placement as above. Plan: Patient may require upsizing of the catheter as only an 8 Namibian catheter could be placed. trial management associate, consideration may be given to extending the stent centrally and distally although sufficient radial strength to allow for stent deployment in the currently obstructed proximal stent is of significant concern. Bhavin Montemayor MD Abdomen X-Ray 03/04/18 0000 Signed Impressions: Service Date/Time: Sunday, March 04, 2018 16:53 - CONCLUSION: No evidence of obstruction. Tube in the jejunum. Jamie Tabor MD FACR Abdomen/Pelvis CT 03/03/18 0820 Signed Impressions: Service Date/Time: February 09:06 - CONCLUSION: 1. Very mild peripancreatic fluid stranding which may represent low-grade pancreatitis. 2. Common bile duct stent noted in place. There is no evidence of intrahepatic biliary duct dilatation. 3. Significant soft tissue fullness in the bret hepatis surrounding the proximal portion of the stent. 4. Status post cholecystectomy. 5. Gastric balloon of the gastrojejunostomy as migrated into the stomach and needs to be pulled back and secured. 6. Degenerative anterolisthesis at L5-S1 with advanced degenerative changes in the lower lumbar spine. 7. Mild airspace disease left base. Baron Shin MD GI Procedure 03/03/18 0000 Signed Impressions: Service Date/Time: February 17:12 - CONCLUSION: ERCP as above. Jamie Tabor MD FACR Physical Exam HEENT: Normocephalic; atraumatic CHEST: Even/unlabored CARDIAC: RRR ABDOMEN: Soft, nondistended, bowel sounds active. GJ tube clamped. PTC drain with approx 20mL of drainage SKIN: Normal; no rash; no jaundice. NYLON WINDER: No focal deficits; alert and oriented times three. (Zahira Mora) Assessment and Plan Plan Assessment: - Acute on chronic pancreatitis- secondary to gallstones S/P ERCP yesterday --> Multiple stones, migrated metal stent up into CBD, could not put plastic stent due to kink in current stent S/P IR for PTC today, pt returned from IR just prior to my exam, report pending. PTC drain with 40 mL of bile colored drainage Current labs trending down: AST-151 ALT-259 Alk phos-220 T bili-2.1 CT abdomen and pelvis W/O IV contrast (03/03) --> Very mild peripancreatic fluid stranding which may represent low-grade pancreatitis. Common bile duct stent noted in place. There is no evidence of intrahepatic biliary duct dilatation. Significant soft tissue fullness in the bret hepatis surrounding the proximal portion of the stent. Status post cholecystectomy. Gastric balloon of the gastrojejunostomy as migrated into the stomach and needs to be pulled back and secured. Degenerative anterolisthesis at L5-S1 with advanced degenerative changes in the lower lumbar spine. Mild airspace disease left base. Previous CROSS: EUS in 2016 revealed unremarkable pancreas IgG4 25.1 JING negative CA 19-9 42.3 (Dec 2015) - G/J tube- currently clamped (03/05) --> S/P biliary drainage with stent placement by IR (03/04) --> . Very severe obstruction of the proximal common bile duct stent with very challenging recanalization requiring multiple wires and catheters. Uncomplicated biliary stent placement as above. IR notes ": Patient may require upsizing of the catheter as only an 8 Namibian catheter could be placed. custodial, consideration may be given to extending the stent centrally and distally although sufficient radial strength to allow for stent deployment in the currently obstructed proximal stent is of significant concern." Approx 20 mL of bile colored drainage in the PTC bag. GJ tube placement confirmed with KUB --> Tube in the jejunum Pt complaining of continued abdominal pain today, some nausea but states it is improving. Repeat labs from today show improvement in LFTs, trending down Plan: Monitor labs Supportive care with anti-emetics and pain medication Protonix Creon with feedings Zosyn Monitor PTC drain output Discuss with IR regarding best approach for biliary stent possible combined procedure IR/ERCP and placement of a new metallic stent - per Dr. Schwartz Further recommendations based on clinical course Pt has been seen and examined by myself and and this note is written on his behalf (Zahira Mora) Physician Comments Patient seen and examined Agree with above Continue with current supportive care Monitor labs The acute on chronic pancreatitis seems to be resolving The biliary obstruction due to sludge and stone impaction of the metal biliary stent has been partially resolved by an internal/external stent placement by interventional radiology we will plan for an ERCP on Wednesday so as to obtain proper internal drainage and hopefully resolve the issue of the external biliary drain With regards to the gastroparesis the patient has done well with the GJ tube (Gregg Ortega MD) Zahira Mora Mar 05, 2018 14:43 Gregg Ortega MD Mar 05, 2018 22:19
[2018-03-06] VITALS (7 sets, daily range): BP systolic 145–178; BP diastolic 72–83; PULSE 67–78; RESP 16–20; TEMP 97–100.4; O2SAT 96–98
[2018-03-06] MEDS: MORPHINE SULFATE 4 MG/ML INJ IV PUSH PRN ×2 (01:20→06:34)
[2018-03-06] MEDS: PIPERACIL-TAZO 2.25 GM PREMIX 50 ML IV SCH ×4 (02:07→20:11)
[2018-03-06] MEDS: ACETAMINOPHEN/HYDROcodone 325 MG/5 MG TAB PO PRN (04:21)
[2018-03-06] MEDS: ONDANSETRON HCL 4 MG/2 ML VIAL IV PRN ×3 (04:23→23:10)
--- NOTE | 2018-03-06 08:09 | HHI.PR ---
Subjective Remarks crying in pain Objective Vitals crying heart reg lung cta abd epigastric tenderness. no rebound. bs ext no edema Vital Signs Date Time Temp Pulse Resp B/P (MAP) Pulse Ox O2 Delivery O2 Flow Rate FiO2 03/06/18 04:40 97.0 67 20 145/80 (101) 98 03/06/18 00:32 98.4 69 19 170/72 (104) 96 03/05/18 21:50 99.9 80 18 163/74 (103) 99 03/05/18 17:09 98 21 03/05/18 16:07 99.0 72 18 148/67 (94) 98 03/05/18 11:29 98.7 69 20 151/69 (96) 97 03/05/18 08:27 98.3 67 18 141/71 (94) 98 Result Diagram: 03/05/18 0903 03/05/18 0903 Imaging Last Impressions Abdomen/Pelvis CT 03/03/18 0820 Signed Impressions: Service Date/Time: February 09:06 - CONCLUSION: 1. Very mild peripancreatic fluid stranding which may represent low-grade pancreatitis. 2. Common bile duct stent noted in place. There is no evidence of intrahepatic biliary duct dilatation. 3. Significant soft tissue fullness in the bret hepatis surrounding the proximal portion of the stent. 4. Status post cholecystectomy. 5. Gastric balloon of the gastrojejunostomy as migrated into the stomach and needs to be pulled back and secured. 6. Degenerative anterolisthesis at L5-S1 with advanced degenerative changes in the lower lumbar spine. 7. Mild airspace disease left base. Baron Shin MD Abdomen X-Ray 03/03/18 0000 Signed Impressions: Service Date/Time: February 06:40 - CONCLUSION: No concerning abnormalities seen. Meeta De Dios MD A/P Problem List: (1) Pancreatitis, recurrent ICD Codes: K86.1 - Recurrent pancreatitis Status: Acute Plan: Recurrent Idiopathic pancreatitis Abdominal pain Elevated LFTs Biliary obstruction GNR biliary sepsis - Pt is an 82 y/o female with recurrent idiopathic pancreatitis. Pt was evaluated with ERCP was during her last admission on 06/10/17 --> pt had prior sphincterotomy and a metal stent in the bile duct and were able to obtain easy cannulation of the common bile duct but the stent was clogged up with sludge and stones and so using an 8 mm balloon the stent and the distal CBD were cleaned out then was lavaged and then further cleaning was performed and then an obstructive cholangiogram was finally able to clear the common bile duct of all filling defects. - Pt presented to the ED at [facility] on 03/03/18 with complaints of worsening abdominal pain, N/V for the last 2-3 days. She reports that the pain is the same pain that she has had previously with her pancreatitis. - Her labs in the ED revealed WBC count 22, Cr 2.84/BUN 38, TBili 1.8, AST 646, ALT 461, AlkPhos 349. - CT Abd/pelvis (03/03) --> Vvery mild peripancreatic fluid stranding which may represent low-grade pancreatitis, common bile duct stent noted in place, no evidence of intrahepatic biliary duct dilatation, significant soft tissue fullness in the bret hepatis surrounding the proximal portion of the stent, s/ p cholecystectomy, gastric balloon of the gastrojejunostomy as migrated into the stomach and needs to be pulled back and secured, and degenerative anterolisthesis at L5-S1 with advanced degenerative changes in the lower lumbar spine and mild airspace disease left base. - ERCP 03/03. proximal cbd stent obstruction - PTC 03/04 IR : 1. severe obstruction of the proximal common bile duct stent with very challenging recanalization requiring multiple wires and catheters. 2. Uncomplicated biliary stent placement - IVF - cont iv abx. gnr sepsis. f/u cx. - adjust pain control. dilaudid. norco. - Await further GI/IR intervention. - Monitor labs - DVT prophylaxis with SCDs Acute on chronic kidney disease, stage 3 - May be related to some degree of dehydration - Give IVF - Monitor labs GERD - PPI (2) Elevated liver enzymes ICD Codes: R74.8 - Abnormal levels of other serum enzymes Status: Acute (3) Acute on chronic kidney disease, stage 3 ICD Codes: N18.3 - Acute worsening of stage 3 chronic kidney disease Status: Acute Bryan Quezada MD Mar 06, 2018 08:09
[2018-03-06] MEDS: METOPROLOL TARTRATE 25 MG TAB PO SCH ×2 (08:11→20:11)
[2018-03-06] MEDS: DILTIAZEM-CD 120 MG CAP ER PO SCH (08:11)
[2018-03-06] MEDS: ACETAMINOPHEN/HYDROcodone 325 MG/10 MG TAB PO PRN ×3 (08:15→20:10)
[2018-03-06] MEDS: PANTOPRAZOLE SODIUM 40 MG VIAL IV PUSH SCH ×2 (08:20→23:10)
[2018-03-06] MEDS: SODIUM CHLOR 0.9% 1000 ML INJ 1,000 ML IV SCH ×2 (08:20→21:25)
[2018-03-06] MEDS: LIPASE/PROTEASE/AMYLASE (12,000/38,000/60,000) CAP PO SCH ×3 (08:20→17:40)
[2018-03-06 08:48] LABS: ALBUMIN 2.6 GM/DL (3.4-5.0); BICARBONATE 21.7 MEQ/L (21.0-32.0); CALCIUM 8.5 MG/DL (8.5-10.1); CREATININE 2.19 MG/DL (0.50-1.00); DIRECT BILIRUBIN ADULT 0.6 MG/DL (0.0-0.2)
[2018-03-06 08:51] LABS: INDIRECT BILIRUBIN 0.3 MG/DL (0.0-0.8); TOTAL BILIRUBIN ADULT 0.9 MG/DL (0.2-1.0); TOTAL PROTEIN 6.7 GM/DL (6.4-8.2)
[2018-03-06] MEDS: HYDROmorphone HCL PF 2 MG/ML VIAL IV PUSH PRN ×3 (12:40→21:23)
--- NOTE | 2018-03-06 14:37 | HHI.GIFU ---
Subjective Remarks Pt with no complaints at this time She spoke with Dr. Ortega yesterday and is aware she is having an ERCP tomorrow Does not have any questions about the procedure (Zahira Mora) Objective Vitals I&O Vital Signs Date Time Temp Pulse Resp B/P (MAP) Pulse Ox O2 Delivery O2 Flow Rate FiO2 03/06/18 11:35 99.1 68 20 145/83 (103) 97 03/06/18 09:44 98.8 76 20 166/78 (107) 97 03/06/18 04:40 97.0 67 20 145/80 (101) 98 03/06/18 00:32 98.4 69 19 170/72 (104) 96 03/05/18 21:50 99.9 80 18 163/74 (103) 99 03/05/18 17:09 98 21 03/05/18 16:07 99.0 72 18 148/67 (94) 98 I/O 03/05/18 03/05/18 03/05/18 03/06/18 03/06/18 03/06/18 07:00 15:00 23:00 07:00 15:00 23:00 Intake Total 1188 ml 1120 ml 500 ml Output Total 110 ml 90 ml 45 ml 50 ml Balance 1078 ml -90 ml 1075 ml 500 ml -50 ml Intake Oral 1120 ml 500 ml IV Total 1188 ml Output Drainage Total 110 ml 90 ml 45 ml 50 ml # Voids 3 4 1 3 1 # Bowel Movements 0 0 2 Laboratory Laboratory Tests Test 03/06/18 07:54 Blood Urea Nitrogen 23 Creatinine 2.19 Random Glucose 84 Total Protein 6.7 Albumin 2.6 Calcium Level 8.5 Alkaline Phosphatase 179 Aspartate Amino Transf (AST/SGOT) 18 Alanine Aminotransferase (ALT/SGPT) 114 Total Bilirubin 0.9 Direct Bilirubin 0.6 Sodium Level 143 Potassium Level 3.8 Chloride Level 111 Carbon Dioxide Level 21.7 Anion Gap 10 Estimat Glomerular Filtration Rate 26 Indirect Bilirubin 0.3 Date/Time Source Procedure Growth Status 03/03/18 08:45 Blood Peripheral Aerobic Blood Culture - Preliminary NO GROWTH IN 3 DAYS Resulted 03/03/18 08:45 Anaerobic Blood Culture - Final Escherichia Coli Resulted Imaging Last Impressions Bile Duct Drainage 03/04/18 0000 Signed Impressions: Service Date/Time: Sunday, March 04, 2018 12:02 - CONCLUSION: 1. Very severe obstruction of the proximal common bile duct stent with very challenging recanalization requiring multiple wires and catheters. 2. Uncomplicated biliary stent placement as above. Plan: Patient may require upsizing of the catheter as only an 8 Cuban catheter could be placed. jail, consideration may be given to extending the stent centrally and distally although sufficient radial strength to allow for stent deployment in the currently obstructed proximal stent is of significant concern. Bhavin Montemayor MD Abdomen X-Ray 03/04/18 0000 Signed Impressions: Service Date/Time: Sunday, March 04, 2018 16:53 - CONCLUSION: No evidence of obstruction. Tube in the jejunum. Jamie Tabor MD FACR Abdomen/Pelvis CT 03/03/18 0820 Signed Impressions: Service Date/Time: February 09:06 - CONCLUSION: 1. Very mild peripancreatic fluid stranding which may represent low-grade pancreatitis. 2. Common bile duct stent noted in place. There is no evidence of intrahepatic biliary duct dilatation. 3. Significant soft tissue fullness in the bret hepatis surrounding the proximal portion of the stent. 4. Status post cholecystectomy. 5. Gastric balloon of the gastrojejunostomy as migrated into the stomach and needs to be pulled back and secured. 6. Degenerative anterolisthesis at L5-S1 with advanced degenerative changes in the lower lumbar spine. 7. Mild airspace disease left base. Baron Shin MD GI Procedure 03/03/18 0000 Signed Impressions: Service Date/Time: February 17:12 - CONCLUSION: ERCP as above. Jamie Tabor MD FACR Physical Exam HEENT: Normocephalic; atraumatic CHEST: Even/unlabored CARDIAC: RRR ABDOMEN: Soft, nondistended, bowel sounds active. GJ tube clamped. PTC drain. SKIN: Normal; no rash; no jaundice. 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 (Zahira Mora) Assessment and Plan Plan Assessment: - Acute on chronic pancreatitis- secondary to gallstones S/P ERCP yesterday --> Multiple stones, migrated metal stent up into CBD, could not put plastic stent due to kink in current stent S/P IR for PTC today, pt returned from IR just prior to my exam, report pending. PTC drain with 40 mL of bile colored drainage Current labs trending down: AST-151 ALT-259 Alk phos-220 T bili-2.1 CT abdomen and pelvis W/O IV contrast (03/03) --> Very mild peripancreatic fluid stranding which may represent low-grade pancreatitis. Common bile duct stent noted in place. There is no evidence of intrahepatic biliary duct dilatation. Significant soft tissue fullness in the bret hepatis surrounding the proximal portion of the stent. Status post cholecystectomy. Gastric balloon of the gastrojejunostomy as migrated into the stomach and needs to be pulled back and secured. Degenerative anterolisthesis at L5-S1 with advanced degenerative changes in the lower lumbar spine. Mild airspace disease left base. Previous CROSS: EUS in 2016 revealed unremarkable pancreas IgG4 25.1 JING negative CA 19-9 42.3 (Dec 2015) - Gastroparesis- well controlled with GJ tube. (03/05) --> S/P biliary drainage with stent placement by IR (03/04) --> . Very severe obstruction of the proximal common bile duct stent with very challenging recanalization requiring multiple wires and catheters. Uncomplicated biliary stent placement as above. IR notes ": Patient may require upsizing of the catheter as only an 8 Cuban catheter could be placed. manager intermediate, consideration may be given to extending the stent centrally and distally although sufficient radial strength to allow for stent deployment in the currently obstructed proximal stent is of significant concern." Approx 20 mL of bile colored drainage in the PTC bag. GJ tube placement confirmed with KUB --> Tube in the jejunum Pt complaining of continued abdominal pain today, some nausea but states it is improving. Repeat labs from today show improvement in LFTs, trending down (03/06) Pt with no GI complaints at this time. She spoke with Dr. Ortega yesterday and is aware of ERCP tomorrow. Requesting I speak with her daughter, Caitlyn. I spoke with Caitlyn over the phone and answered her questions. "The biliary obstruction due to sludge and stone impaction of the metal biliary stent has been partially resolved by an internal/external stent placement by interventional radiology we will plan for an ERCP on Wednesday so as to obtain proper internal drainage and hopefully resolve the issue of the external biliary drain" LFTs continue to trend down Plan: ERCP tomorrow Obtain consent NPO after MN Monitor labs Supportive care with anti-emetics and pain medication Protonix Creon with feedings Zosyn Monitor PTC drain output Further recommendations based on findings of above Pt has been seen and examined by myself and and this note is written on his behalf (Zahira Mora) Physician Comments Patient seen and examined Agree with above Continue with current supportive care Monitor labs Plan for an ERCP tomorrow (Gregg Ortega MD) Zahira Mora Mar 06, 2018 14:37 Gregg Ortega MD Mar 06, 2018 21:03
[2018-03-06] MEDS ORDERED: LACTATED RINGER'S 1000 ML IV PRN (20:15)
[2018-03-06] MEDS ORDERED: SODIUM CHLORID 0.9% 500 ML IV PRN (20:15)
[2018-03-06] MEDS ORDERED: POVIDONE IODINE 5% (ANTISEPSIS KIT) 4 APPLICATIONS EACH NARE PRN (20:15)
[2018-03-06] MEDS ORDERED: CHLORHEXIDINE GLUCONATE 2 % 1 PACK (2 CLOTHS) TOPICAL PRN (20:15)
[2018-03-07] VITALS: BP 158/82; PULSE 80; RESP 18; TEMP 98.6; O2SAT 98
[2018-03-07] MEDS: ACETAMINOPHEN/HYDROcodone 325 MG/10 MG TAB PO PRN ×4 (00:57→20:03)
[2018-03-07] MEDS: PIPERACIL-TAZO 2.25 GM PREMIX 50 ML IV SCH ×3 (03:39→15:57)
[2018-03-07] MEDS: HYDROmorphone HCL PF 2 MG/ML VIAL IV PUSH PRN ×2 (03:40→06:27)
[2018-03-07] MEDS: SODIUM CHLOR 0.9% 1000 ML INJ 1,000 ML IV SCH ×2 (03:46→20:04)
[2018-03-07 04:00] VITALS: BP 162/72; PULSE 86; RESP 16; TEMP 98.6; O2SAT 95
[2018-03-07] MEDS: ONDANSETRON HCL 4 MG/2 ML VIAL IV PRN ×2 (05:38→20:03)
[2018-03-07 07:53] LABS: ALBUMIN 2.3 GM/DL (3.4-5.0); BICARBONATE 19.7 MEQ/L (21.0-32.0); CALCIUM 8.5 MG/DL (8.5-10.1); CREATININE 2.12 MG/DL (0.50-1.00)
[2018-03-07 07:57] LABS: DIRECT BILIRUBIN ADULT 0.4 MG/DL (0.0-0.2); INDIRECT BILIRUBIN 0.4 MG/DL (0.0-0.8); TOTAL BILIRUBIN ADULT 0.8 MG/DL (0.2-1.0); TOTAL PROTEIN 6.5 GM/DL (6.4-8.2)
[2018-03-07] MEDS: METOPROLOL TARTRATE 25 MG TAB PO SCH ×2 (07:58→20:03)
[2018-03-07 08:00] VITALS: BP 183/81; PULSE 78; RESP 19; TEMP 99; O2SAT 100
[2018-03-07] MEDS: DILTIAZEM-CD 120 MG CAP ER PO SCH (08:03)
[2018-03-07] MEDS: LIPASE/PROTEASE/AMYLASE (12,000/38,000/60,000) CAP PO SCH ×3 (09:30→17:35)
[2018-03-07] MEDS ORDERED: FAMOTIDINE 20 MG/2 ML VIAL IV PUSH ONE (10:45)
[2018-03-07] MEDS ORDERED: ONDANSETRON HCL 4 MG/2 ML VIAL IV PUSH ONE (10:45)
[2018-03-07 12:00] VITALS: BP 152/75; PULSE 81; RESP 20; TEMP 98.4; O2SAT 98
[2018-03-07] MEDS ORDERED: NEOSTIGMINE 5 MG/5 ML SYRINGE IV PUSH ONE (12:00)
[2018-03-07] MEDS ORDERED: LIDOCAINE HCL 1% PF 5 ML SYRINGE OTHER ONE (12:00)
[2018-03-07] MEDS ORDERED: ROCURONIUM INJ 50 MG/5 ML SYRINGE IV PUSH ONE (12:00)
[2018-03-07] MEDS ORDERED: PROPOFOL 200 MG/20 ML AMP IV ONE (12:00)
[2018-03-07] MEDS ORDERED: METOPROLOL TARTRATE 5 MG/5 ML VIAL IV ONE (12:00)
[2018-03-07] MEDS ORDERED: GLYCOPYRROLATE 1 MG/5 ML SYRINGE IV PUSH ONE (12:00)
[2018-03-07] MEDS ORDERED: DEXAMETHASONE SOD PHOS 4 MG/ML VIAL IV ONE (12:00)
[2018-03-07] MEDS ORDERED: ONDANSETRON HCL 4 MG/2 ML VIAL IV ONE (12:00)
--- NOTE | 2018-03-07 12:37 | RADRPT ---
EXAM DATE/TIME: 03/07/2018 11:06 [place] COMPARISON: GI LAB ERCP, March 03, 2018, 17:12. INDICATIONS : Choledocolithiasis. FLUORO TIME: 12.5 minutes IMAGE COUNT: 6 CONTRAST: Instilled by Ordering Physician MEDICAL HISTORY : None. SURGICAL HISTORY : None. ENCOUNTER: Subsequent ACUITY: 4 - 6 days PAIN SCORE: Non-responsive. LOCATION: Right upper quadrant FINDINGS: An ERCP was performed by the ordering physician. The images demonstrate a stent and drainage tubes in the common bile duct. CONCLUSION: ERCP as above. Yunier Santana MD on March 07, 2018 at 12:34 Board Certified Radiologist. This report was verified electronically.
[2018-03-07] MEDS: PANTOPRAZOLE SODIUM 40 MG VIAL IV PUSH SCH ×2 (12:44→22:56)
[2018-03-07] MEDS ORDERED: DO NOT ADM ANY ANTICOAGULANT DRUGS PRN (13:00)
[2018-03-07] MEDS ORDERED: *ONDANSETRON 4 MG VIAL PERIprocedural Use ONLY ONE (13:01)
--- NOTE | 2018-03-07 13:25 | PD.PROCEDR ---
GI Procedure PROCEDURE PERFORMED ERCP with balloon extraction INDICATION FOR PROCEDURE Biliary obstruction with stones and sludge obstructing and occluding a metal biliary stent PROCEDURE: The procedure, risks and benefits were discussed with Patient/POA and informed consent was obtained. Anesthesia sedated Patient with Diprivan. Patient was placed in the left lateral decubitus position. ERCP: Patient was placed in a prone position. The Pentax videoscope was introduced through the oropharynx and advanced to the second portion of the duodenum where the ampula was identified. FINDINGS: The ampulla was noted by the presence of an internal/external stent it was effaced from prior stenting and sphincterotomy I was able to cannulate the common bile duct with ease the metallic stent was occluded for the most part with sludge and stones with a noted internal/external stent piercing this clogging and allowing for drainage into the duodenum once we were able to booth through the clogging I was able to first use an 8 mm balloon but then we used a CRE balloon with varying sizes up to a 10 Amharic to clean out the metallic stent within the bile duct finally we were able to confirm complete clearance of the stent with good emptying through the stent and at this point in time the procedure was terminated ESTIMATED BLOOD LOSS: None SPECIMENS REMOVED: None COMPLICATIONS: None IMPRESSION: Choledocholithiasis and biliary stent occlusion PLAN: Continue with current supportive care Case discussed with interventional radiology with regards to the need to remove the internal/external stent at some point in the near future Once the internal/external stent has been removed we will proceed with a repeat ERCP with the intention of either removing this old metallic stent and replacing it with another or just double stenting Continue with current supportive care Gregg Ortega MD Mar 07, 2018 13:25
--- NOTE | 2018-03-07 14:48 | HHI.PR ---
Subjective Remarks Pt had repeat ERCP today and metal stent was able to be cleared out Pt reports that her abd pain is under control She is tolerating some clear liquids Objective Vitals Vital Signs Date Time Temp Pulse Resp B/P (MAP) Pulse Ox O2 Delivery O2 Flow Rate FiO2 03/07/18 13:00 98.6 61 14 146/69 (94) 100 Room Air 03/07/18 12:45 62 14 147/70 (95) 100 Room Air 03/07/18 12:30 68 14 154/67 (96) 100 Nasal Cannula 2 03/07/18 12:25 98.5 63 14 164/74 (104) 100 Nasal Cannula 2 03/07/18 08:00 99.0 78 19 183/81 (115) 100 03/07/18 04:00 98.6 86 16 162/72 (102) 95 03/07/18 00:00 98.6 80 18 158/82 (107) 98 03/06/18 20:00 98.6 78 16 178/78 (111) 97 03/06/18 19:32 96 03/06/18 15:41 100.4 76 20 172/77 (108) 96 03/07/18 03/07/18 03/08/18 15:00 23:00 07:00 Intake Total 600 ml Balance 600 ml Intake Oral 0 ml Other 600 ml # Voids 0 Result Diagram: 03/05/18 0903 03/07/18 0537 Other Results Laboratory Tests Test 03/06/18 07:54 03/07/18 05:37 Blood Urea Nitrogen 23 MG/DL 22 MG/DL Creatinine 2.19 MG/DL 2.12 MG/DL Random Glucose 84 MG/DL 68 MG/DL Total Protein 6.7 GM/DL 6.5 GM/DL Albumin 2.6 GM/DL 2.3 GM/DL Calcium Level 8.5 MG/DL 8.5 MG/DL Alkaline Phosphatase 179 U/L 155 U/L Aspartate Amino Transf (AST/SGOT) 18 U/L 11 U/L Alanine Aminotransferase (ALT/SGPT) 114 U/L 76 U/L Total Bilirubin 0.9 MG/DL 0.8 MG/DL Direct Bilirubin 0.6 MG/DL 0.4 MG/DL Sodium Level 143 MEQ/L 142 MEQ/L Potassium Level 3.8 MEQ/L 3.6 MEQ/L Chloride Level 111 MEQ/L 109 MEQ/L Carbon Dioxide Level 21.7 MEQ/L 19.7 MEQ/L Anion Gap 10 MEQ/L 13 MEQ/L Estimat Glomerular Filtration Rate 26 ML/MIN 27 ML/MIN Indirect Bilirubin 0.3 MG/DL 0.4 MG/DL Imaging Last Impressions GI Procedure 03/07/18 0000 Signed Impressions: Service Date/Time: Wednesday, March 07, 2018 11:06 - CONCLUSION: ERCP as above. Yunier Santana MD Bile Duct Drainage 03/04/18 0000 Signed Impressions: Service Date/Time: Sunday, March 04, 2018 12:02 - CONCLUSION: 1. Very severe obstruction of the proximal common bile duct stent with very challenging recanalization requiring multiple wires and catheters. 2. Uncomplicated biliary stent placement as above. Plan: Patient may require upsizing of the catheter as only an 8 Armenian catheter could be placed. terminal superintendent, consideration may be given to extending the stent centrally and distally although sufficient radial strength to allow for stent deployment in the currently obstructed proximal stent is of significant concern. Bhavin Montemayor MD Abdomen X-Ray 03/04/18 0000 Signed Impressions: Service Date/Time: Sunday, March 04, 2018 16:53 - CONCLUSION: No evidence of obstruction. Tube in the jejunum. Jamie Tabor MD FACR Abdomen/Pelvis CT 03/03/18 0820 Signed Impressions: Service Date/Time: February 09:06 - CONCLUSION: 1. Very mild peripancreatic fluid stranding which may represent low-grade pancreatitis. 2. Common bile duct stent noted in place. There is no evidence of intrahepatic biliary duct dilatation. 3. Significant soft tissue fullness in the bret hepatis surrounding the proximal portion of the stent. 4. Status post cholecystectomy. 5. Gastric balloon of the gastrojejunostomy as migrated into the stomach and needs to be pulled back and secured. 6. Degenerative anterolisthesis at L5-S1 with advanced degenerative changes in the lower lumbar spine. 7. Mild airspace disease left base. Baron Shin MD Objective Remarks General: NAD, AAOx3 Chest: CTA Cardiac: Regular Abd: +BS, soft, upper abd tenderness Ext: No edema A/P Problem List: (1) Pancreatitis, recurrent ICD Codes: K86.1 - Recurrent pancreatitis Status: Acute Plan: Recurrent Idiopathic pancreatitis Abdominal pain Elevated LFTs Biliary obstruction GNR biliary sepsis - Pt is an 82 y/o female with recurrent idiopathic pancreatitis. Pt was evaluated with ERCP was during her last admission on 06/10/17 --> pt had prior sphincterotomy and a metal stent in the bile duct and were able to obtain easy cannulation of the common bile duct but the stent was clogged up with sludge and stones and so using an 8 mm balloon the stent and the distal CBD were cleaned out then was lavaged and then further cleaning was performed and then an obstructive cholangiogram was finally able to clear the common bile duct of all filling defects. - [place] [facility] [place] with complaints of worsening abdominal pain, N/V for the last 2-3 days. She reports that the pain is the same pain that she has had previously with her pancreatitis. - Her labs in the ED revealed WBC count 22, Cr 2.84/BUN 38, TBili 1.8, AST 646, ALT 461, AlkPhos 349. - CT Abd/pelvis (03/03) --> Vvery mild peripancreatic fluid stranding which may represent low-grade pancreatitis, common bile duct stent noted in place, no evidence of intrahepatic biliary duct dilatation, significant soft tissue fullness in the bret hepatis surrounding the proximal portion of the stent, s/ p cholecystectomy, gastric balloon of the gastrojejunostomy as migrated into the stomach and needs to be pulled back and secured, and degenerative anterolisthesis at L5-S1 with advanced degenerative changes in the lower lumbar spine and mild airspace disease left base. - ERCP (03/03/18) --> Multiple stones, migrated metal stent up into CBD, could not put plastic stent due to "kink" in current stent according to GI notes - Pt had PTC 03/04 by IR -->severe obstruction of the proximal common bile duct stent with very challenging recanalization requiring multiple wires and catheters. Uncomplicated biliary stent placement - Repeat ERCP (03/07/18) --> Metallic stent was occluded for the most part with sludge and stones with a noted internal/external stent piercing this clogging and allowing for drainage into the duodenum once he was able to booth through the clogging an 8 mm balloon was attempted but then a CRE balloon with varying sizes up to a 10 Armenian was used to clean out the metallic stent within the bile duct and he was able to confirm complete clearance of the stent with good emptying through the stent. - GI discussed the case with IR after the ERCP on 03/07 and it was recommended that the internal/external stent needs to be removed at some point in the near future and once the internal/external stent has been removed we will proceed with a repeat ERCP with the intention of either removing this old metallic stent and replacing it with another or just double stenting. - IVF - LFTs and renal function continue to improve - Cont IV Abx. - Blood cultures (419) --> 2/ bottles growing E. coli. - Pt is on Zosyn. Culture sensitives were reviewed and abx to be changed to Rocephin on 03/07. - Adjust pain control. Dilaudid. Climax. - Await further GI/IR intervention. - Monitor labs - DVT prophylaxis with SCDs Acute on chronic kidney disease, stage 3 - May be related to some degree of dehydration - Labs improving with IVF - Monitor labs GERD - PPI (2) Elevated liver enzymes ICD Codes: R74.8 - Abnormal levels of other serum enzymes Status: Acute (3) Acute on chronic kidney disease, stage 3 ICD Codes: N18.3 - Acute worsening of stage 3 chronic kidney disease Status: Acute Assessment and Plan Patient examined. Assessment and plan formulated with Guadalupe Monson PA-C. I agree with the above. Pt interviewed and examined. Pt's pain is controlled, and she is in good spirits. Pt underwent ERCP today and metal stent was able to be cleared by GI. Guadalupe Monson Mar 07, 2018 14:48 Alexander Eddy DO Mar 08, 2018 14:22
[2018-03-07 20:00] VITALS: BP 173/73; PULSE 63; RESP 16; TEMP 98; O2SAT 100
[2018-03-07] MEDS: cefTRIAXone INJ 1,000 MG in SODIUM CHLORIDE 0.9% INJ 100 ML IV SCH (20:04)
[2018-03-08] VITALS: BP 162/70; PULSE 84; RESP 16; TEMP 98.1; O2SAT 98
[2018-03-08] MEDS: ACETAMINOPHEN/HYDROcodone 325 MG/10 MG TAB PO PRN ×6 (00:39→21:29)
[2018-03-08 04:00] VITALS: BP 146/70; PULSE 65; RESP 16; O2SAT 100
[2018-03-08] MEDS: ONDANSETRON HCL 4 MG/2 ML VIAL IV PRN ×3 (04:44→17:26)
[2018-03-08] MEDS: SODIUM CHLOR 0.9% 1000 ML INJ 1,000 ML IV SCH (04:47)
[2018-03-08 05:47] LABS: HEMATOCRIT 31.1 % (35.0-46.0); HEMOGLOBIN 10.1 GM/DL (11.6-15.3); MEAN CELL VOLUME 87.5 FL (80.0-100.0); MEAN CORPUSCULAR HEMOGLOBIN 28.3 PG (27.0-34.0); MEAN CORPUSCULAR HGB CONC 32.4 % (32.0-36.0); MEAN PLATELET VOLUME 9.8 FL (7.0-11.0); PLATELET COUNT 197 TH/MM3 (150-450); RED BLOOD COUNT 3.56 MIL/MM3 (4.00-5.30); RED CELL DISTRIBUTION WIDTH 13.7 % (11.6-17.2); WHITE BLOOD COUNT 13.7 TH/MM3 (4.0-11.0)
[2018-03-08 05:54] LABS: ALBUMIN 2.2 GM/DL (3.4-5.0); ALT (GPT) 56 U/L (10-53); AST (GOT) 12 U/L (15-37); BICARBONATE 21.2 MEQ/L (21.0-32.0); BLOOD UREA NITROGEN 29 MG/DL (7-18); CALCIUM 8.5 MG/DL (8.5-10.1); CHLORIDE 110 MEQ/L (98-107); CREATININE 2.26 MG/DL (0.50-1.00); GLOMERULAR FILTRATION RATE 25 ML/MIN (>89); GLUCOSE,RANDOM 95 MG/DL (74-106); SODIUM (NA) 142 MEQ/L (136-145)
[2018-03-08 05:56] LABS: ALKALINE PHOSPHATASE 140 U/L (45-117); TOTAL BILIRUBIN ADULT 0.4 MG/DL (0.2-1.0); TOTAL PROTEIN 6.5 GM/DL (6.4-8.2)
[2018-03-08 07:52] VITALS: BP 158/73; PULSE 74; RESP 18; TEMP 98.7; O2SAT 99
[2018-03-08] MEDS: DILTIAZEM-CD 120 MG CAP ER PO SCH (08:45)
[2018-03-08] MEDS: METOPROLOL TARTRATE 25 MG TAB PO SCH ×2 (08:45→21:30)
[2018-03-08] MEDS: LIPASE/PROTEASE/AMYLASE (12,000/38,000/60,000) CAP PO SCH ×3 (08:45→17:25)
--- NOTE | 2018-03-08 11:29 | HHI.GIFU ---
Subjective Remarks Resting in the bed Smiles and answers simple questions but appears weakened Still having diffuse abdominal pain Afebrile Has G-tube clamped and biliary tube draining dark bilious fluid (Jordana Sebastian) Objective Vitals I&O Vital Signs Date Time Temp Pulse Resp B/P (MAP) Pulse Ox O2 Delivery O2 Flow Rate FiO2 03/08/18 07:52 98.7 74 18 158/73 (101) 99 03/08/18 04:00 65 16 146/70 (95) 100 03/08/18 00:00 98.1 84 16 162/70 (100) 98 03/07/18 20:00 98.0 63 16 173/73 (106) 100 03/07/18 13:00 98.6 61 14 146/69 (94) 100 Room Air 03/07/18 12:45 62 14 147/70 (95) 100 Room Air 03/07/18 12:30 68 14 154/67 (96) 100 Nasal Cannula 2 03/07/18 12:25 98.5 63 14 164/74 (104) 100 Nasal Cannula 2 03/07/18 12:00 98.4 81 20 152/75 (100) 98 I/O 03/07/18 03/07/18 03/07/18 03/08/18 03/08/18 03/08/18 07:00 15:00 23:00 07:00 15:00 23:00 Intake Total 638 ml 600 ml Output Total 110 ml 130 ml Balance 528 ml 600 ml -130 ml Intake Oral 0 ml IV Total 638 ml Other 600 ml Drainage Total 110 ml 130 ml # Voids 0 2 3 # Bowel Movements 1 1 Laboratory Laboratory Tests Test 03/08/18 03:59 White Blood Count 13.7 Red Blood Count 3.56 Hemoglobin 10.1 Hematocrit 31.1 Mean Corpuscular Volume 87.5 Mean Corpuscular Hemoglobin 28.3 Mean Corpuscular Hemoglobin Concent 32.4 Red Cell Distribution Width 13.7 Platelet Count 197 Mean Platelet Volume 9.8 Blood Urea Nitrogen 29 Creatinine 2.26 Random Glucose 95 Total Protein 6.5 Albumin 2.2 Calcium Level 8.5 Alkaline Phosphatase 140 Aspartate Amino Transf (AST/SGOT) 12 Alanine Aminotransferase (ALT/SGPT) 56 Total Bilirubin 0.4 Sodium Level 142 Potassium Level 4.0 Chloride Level 110 Carbon Dioxide Level 21.2 Anion Gap 11 Estimat Glomerular Filtration Rate 25 Lipase 99 Date/Time Source Procedure Growth Status 03/03/18 08:45 Blood Peripheral Aerobic Blood Culture - Final NO GROWTH IN 5 DAYS Complete 03/03/18 08:45 Anaerobic Blood Culture - Final Escherichia Coli Complete Imaging Last Impressions GI Procedure 03/07/18 0000 Signed Impressions: Service Date/Time: Wednesday, March 07, 2018 11:06 - CONCLUSION: ERCP as above. Yunier Santana MD Bile Duct Drainage 03/04/18 0000 Signed Impressions: Service Date/Time: Sunday, March 04, 2018 12:02 - CONCLUSION: 1. Very severe obstruction of the proximal common bile duct stent with very challenging recanalization requiring multiple wires and catheters. 2. Uncomplicated biliary stent placement as above. Plan: Patient may require upsizing of the catheter as only an 8 Latvian catheter could be placed. roasterman, consideration may be given to extending the stent centrally and distally although sufficient radial strength to allow for stent deployment in the currently obstructed proximal stent is of significant concern. Bhavin Montemayor MD Abdomen X-Ray 03/04/18 0000 Signed Impressions: Service Date/Time: Sunday, March 04, 2018 16:53 - CONCLUSION: No evidence of obstruction. Tube in the jejunum. Jamie Tabor MD FACR Abdomen/Pelvis CT 03/03/18 0820 Signed Impressions: Service Date/Time: February 09:06 - CONCLUSION: 1. Very mild peripancreatic fluid stranding which may represent low-grade pancreatitis. 2. Common bile duct stent noted in place. There is no evidence of intrahepatic biliary duct dilatation. 3. Significant soft tissue fullness in the bret hepatis surrounding the proximal portion of the stent. 4. Status post cholecystectomy. 5. Gastric balloon of the gastrojejunostomy as migrated into the stomach and needs to be pulled back and secured. 6. Degenerative anterolisthesis at L5-S1 with advanced degenerative changes in the lower lumbar spine. 7. Mild airspace disease left base. Baron Shin MD Physical Exam HEENT: Normocephalic; atraumatic, pale mucous membranes CHEST: Even/unlabored , no obvious rhonchi CARDIAC: RRR ABDOMEN: Round, soft, nondistended, bowel sounds active. GJ tube clamped. Biliary drain with dark bilious drainage SKIN: Normal; no rash; no obvious jaundice. DIRECTOR OF MATH: Drowsy and dozing some but answers questions appropriately and responds to verbal stimuli (Jordana Sebastian) Assessment and Plan Plan Assessment: - Acute on chronic pancreatitis- secondary to gallstones S/P ERCP yesterday --> Multiple stones, migrated metal stent up into CBD, could not put plastic stent due to kink in current stent S/P IR for PTC today, pt returned from IR just prior to my exam, report pending. PTC drain with 40 mL of bile colored drainage Current labs trending down: AST-151 ALT-259 Alk phos-220 T bili-2.1 CT abdomen and pelvis W/O IV contrast (03/03) --> Very mild peripancreatic fluid stranding which may represent low-grade pancreatitis. Common bile duct stent noted in place. There is no evidence of intrahepatic biliary duct dilatation. Significant soft tissue fullness in the bret hepatis surrounding the proximal portion of the stent. Status post cholecystectomy. Gastric balloon of the gastrojejunostomy as migrated into the stomach and needs to be pulled back and secured. Degenerative anterolisthesis at L5-S1 with advanced degenerative changes in the lower lumbar spine. Mild airspace disease left base. Previous CROSS: EUS in 2016 revealed unremarkable pancreas IgG4 25.1 JING negative CA 19-9 42.3 (Dec 2015) - Gastroparesis- well controlled with GJ tube. (03/05) --> S/P biliary drainage with stent placement by IR (03/04) --> . Very severe obstruction of the proximal common bile duct stent with very challenging recanalization requiring multiple wires and catheters. Uncomplicated biliary stent placement as above. IR notes ": Patient may require upsizing of the catheter as only an 8 Latvian catheter could be placed. roasterman, consideration may be given to extending the stent centrally and distally although sufficient radial strength to allow for stent deployment in the currently obstructed proximal stent is of significant concern." Approx 20 mL of bile colored drainage in the PTC bag. GJ tube placement confirmed with KUB --> Tube in the jejunum Pt complaining of continued abdominal pain today, some nausea but states it is improving. Repeat labs from today show improvement in LFTs, trending down (03/06) Pt with no GI complaints at this time. She spoke with Dr. Ortega yesterday and is aware of ERCP tomorrow. Requesting I speak with her daughter, Caitlyn. I spoke with Caitlyn over the phone and answered her questions. "The biliary obstruction due to sludge and stone impaction of the metal biliary stent has been partially resolved by an internal/external stent placement by interventional radiology we will plan for an ERCP on Wednesday so as to obtain proper internal drainage and hopefully resolve the issue of the external biliary drain" LFTs continue to trend down 03/08/ S/P ERCP,03/07/18, For Choledocholithiasis, biliary stent occlusion Dr. Ortega discussed with interventional radiology with regards to the need to remove the internal/external stent at some point in the near future Once the internal/external stent has been removed we will proceed with a repeat ERCP with the intention of either removing this old metallic stent and replacing it with another or just double stenting. She continues to have abdominal pain requiring pain management, biliary tube draining dark bilious fluid as well as gastric tube which is clamped. Patient is taking clear liquids by mouth and appears to be tolerating without cough, nausea or vomiting. Lipase level 99. LFTs 12 AST, ALT 56. Hemoglobin 10.1. PLAN: monitor labs, supportive care PPI pain management per attending Continue with current supportive care Creon, Antiemetics Antibiotics per attending Patient will need repeat ERCP with the intention of removing all metallic stent and replacement with another or just double standing in the future This patient's been seen by myself and Dr. Ortega, it was written on his behalf Pt has been seen and examined by myself and and this note is written on his behalf (Jordana Sebastian) Physician Comments Patient seen and examined Agree with above Continue with current supportive care Monitor lab Our next step is to have the internal and external stent removed this may actually have to happen 2 or [address] to allow for a mature tract but we will double check with the interventional radiology team tomorrow at some point at least the stent will need to be capped prior to discharge Patient will then require a repeat ERCP at which time we will determine whether to remove and restent or just restent the current biliary stent (Gregg Ortega MD) Jordana Sebastian Mar 08, 2018 11:29 Gregg Ortega MD Mar 08, 2018 19:14
[2018-03-08] MEDS: PANTOPRAZOLE SODIUM 40 MG VIAL IV PUSH SCH ×2 (11:33→21:30)
[2018-03-08 12:18] VITALS: BP 156/71; PULSE 62; RESP 20; TEMP 98; O2SAT 98
--- NOTE | 2018-03-08 14:27 | HHI.PR ---
Subjective Remarks Pt with NO new complaints. Pt is tolerating clear liquids. Still requiring prn norco for abdominal pain. Objective Vitals Vital Signs Date Time Temp Pulse Resp B/P (MAP) Pulse Ox O2 Delivery O2 Flow Rate FiO2 03/08/18 12:18 98.0 62 20 156/71 (99) 98 03/08/18 07:52 98.7 74 18 158/73 (101) 99 03/08/18 04:00 65 16 146/70 (95) 100 03/08/18 00:00 98.1 84 16 162/70 (100) 98 03/07/18 20:00 98.0 63 16 173/73 (106) 100 03/08/18 03/08/18 03/09/18 15:00 23:00 07:00 # Voids 1 # Bowel Movements 1 Result Diagram: 03/08/18 0359 03/08/18 0359 Imaging Last Impressions GI Procedure 03/07/18 0000 Signed Impressions: Service Date/Time: Wednesday, March 07, 2018 11:06 - CONCLUSION: ERCP as above. Yunier Santana MD Bile Duct Drainage 03/04/18 0000 Signed Impressions: Service Date/Time: Sunday, March 04, 2018 12:02 - CONCLUSION: 1. Very severe obstruction of the proximal common bile duct stent with very challenging recanalization requiring multiple wires and catheters. 2. Uncomplicated biliary stent placement as above. Plan: Patient may require upsizing of the catheter as only an 8 Colombian catheter could be placed. [employer]modal customer service, consideration may be given to extending the stent centrally and distally although sufficient radial strength to allow for stent deployment in the currently obstructed proximal stent is of significant concern. Bhavin Montemayor MD Abdomen X-Ray 03/04/18 0000 Signed Impressions: Service Date/Time: Sunday, March 04, 2018 16:53 - CONCLUSION: No evidence of obstruction. Tube in the jejunum. Jamie Tabor MD FACR Abdomen/Pelvis CT 03/03/18 0820 Signed Impressions: Service Date/Time: February 09:06 - CONCLUSION: 1. Very mild peripancreatic fluid stranding which may represent low-grade pancreatitis. 2. Common bile duct stent noted in place. There is no evidence of intrahepatic biliary duct dilatation. 3. Significant soft tissue fullness in the bret hepatis surrounding the proximal portion of the stent. 4. Status post cholecystectomy. 5. Gastric balloon of the gastrojejunostomy as migrated into the stomach and needs to be pulled back and secured. 6. Degenerative anterolisthesis at L5-S1 with advanced degenerative changes in the lower lumbar spine. 7. Mild airspace disease left base. Baron Shin MD Objective Remarks General: NAD, AAOx3 Chest: CTA Cardiac: Regular Abd: +BS, soft, upper abd tenderness Ext: No edema A/P Problem List: (1) Pancreatitis, recurrent ICD Codes: K86.1 - Recurrent pancreatitis Status: Acute Plan: Recurrent Idiopathic pancreatitis Abdominal pain Elevated LFTs Biliary obstruction GNR biliary sepsis - Pt is an 82 y/o female with recurrent idiopathic pancreatitis. Pt was evaluated with ERCP was during her last admission on 06/10/17 --> pt had prior sphincterotomy and a metal stent in the bile duct and were able to obtain easy cannulation of the common bile duct but the stent was clogged up with sludge and stones and so using an 8 mm balloon the stent and the distal CBD were cleaned out then was lavaged and then further cleaning was performed and then an obstructive cholangiogram was finally able to clear the common bile duct of all filling defects. - Pt presented to the ED at [facility] on 03/03/18 with complaints of worsening abdominal pain, N/V for the last 2-3 days. She reports that the pain is the same pain that she has had previously with her pancreatitis. - Her labs in the ED revealed WBC count 22, Cr 2.84/BUN 38, TBili 1.8, AST 646, ALT 461, AlkPhos 349. - CT Abd/pelvis (03/03) --> Vvery mild peripancreatic fluid stranding which may represent low-grade pancreatitis, common bile duct stent noted in place, no evidence of intrahepatic biliary duct dilatation, significant soft tissue fullness in the bret hepatis surrounding the proximal portion of the stent, s/ p cholecystectomy, gastric balloon of the gastrojejunostomy as migrated into the stomach and needs to be pulled back and secured, and degenerative anterolisthesis at L5-S1 with advanced degenerative changes in the lower lumbar spine and mild airspace disease left base. - ERCP (03/03/18) --> Multiple stones, migrated metal stent up into CBD, could not put plastic stent due to "kink" in current stent according to GI notes - Pt had PTC 03/04 by IR -->severe obstruction of the proximal common bile duct stent with very challenging recanalization requiring multiple wires and catheters. Uncomplicated biliary stent placement - Repeat ERCP (03/07/18) --> Metallic stent was occluded for the most part with sludge and stones with a noted internal/external stent piercing this clogging and allowing for drainage into the duodenum once he was able to booth through the clogging an 8 mm balloon was attempted but then a CRE balloon with varying sizes up to a 10 Colombian was used to clean out the metallic stent within the bile duct and he was able to confirm complete clearance of the stent with good emptying through the stent. - GI discussed the case with IR after the ERCP on 03/07 and it was recommended that the internal/external stent needs to be removed at some point in the near future and once the internal/external stent has been removed we will proceed with a repeat ERCP with the intention of either removing this old metallic stent and replacing it with another or just double stenting. - LFTs and renal function improved from admission - IV Rocephin (03/07 - presnet) - Blood cultures (419) --> 12/19 bottles growing E. coli. - Dilaudid. [place]. - Await further GI/IR intervention. - Monitor labs - DVT prophylaxis with SCDs (2) Elevated liver enzymes ICD Codes: R74.8 - Abnormal levels of other serum enzymes Status: Acute Plan: - improving from admission. (3) Acute on chronic kidney disease, stage 3 ICD Codes: N18.3 - Acute worsening of stage 3 chronic kidney disease Status: Chronic Plan: - acute on chronic CKD- stage 3 - number improved from admission. Alexander Eddy DO Mar 08, 2018 14:27
[2018-03-08] MEDS: cefTRIAXone INJ 1,000 MG in SODIUM CHLORIDE 0.9% INJ 100 ML IV SCH (21:28)
[2018-03-08 21:55] VITALS: BP 148/66; PULSE 61; RESP 17; TEMP 98.6; O2SAT 95
[2018-03-08] MEDS: HYDROmorphone HCL PF 2 MG/ML VIAL IV PUSH PRN (23:19)
[2018-03-09] VITALS (7 sets, daily range): BP systolic 135–173; BP diastolic 60–81; PULSE 62–75; RESP 18–19; TEMP 97.7–98.7; O2SAT 94–99
[2018-03-09] MEDS: ACETAMINOPHEN/HYDROcodone 325 MG/10 MG TAB PO PRN ×6 (01:31→21:46)
[2018-03-09] MEDS: HYDROmorphone HCL PF 2 MG/ML VIAL IV PUSH PRN ×2 (04:10→14:57)
[2018-03-09 07:58] LABS: AUTOMATED NEUTROPHIL # 8.7 TH/MM3 (1.8-7.7); BASOPHIL % 0.4 % (0.0-2.0); EOSINOPHIL # 0.2 TH/MM3 (0-0.4); EOSINOPHIL % 1.7 % (0.0-4.0); HEMATOCRIT 31.7 % (35.0-46.0); HEMOGLOBIN 10.5 GM/DL (11.6-15.3); LYMPH % 10.6 % (9.0-44.0); LYMPHOCYTE # 1.2 TH/MM3 (1.0-4.8); MEAN CELL VOLUME 86.6 FL (80.0-100.0); MEAN CORPUSCULAR HEMOGLOBIN 28.6 PG (27.0-34.0); MEAN CORPUSCULAR HGB CONC 33.1 % (32.0-36.0); MEAN PLATELET VOLUME 9.4 FL (7.0-11.0); MONO % 7.4 % (0.0-8.0); MONOCYTE # 0.8 TH/MM3 (0-0.9); NEUT % 79.9 % (16.0-70.0); PLATELET COUNT 234 TH/MM3 (150-450); RED BLOOD COUNT 3.66 MIL/MM3 (4.00-5.30); RED CELL DISTRIBUTION WIDTH 13.9 % (11.6-17.2); WHITE BLOOD COUNT 10.9 TH/MM3 (4.0-11.0)
[2018-03-09 08:23] LABS: BICARBONATE 21.9 MEQ/L (21.0-32.0); CALCIUM 8.6 MG/DL (8.5-10.1); CREATININE 2.13 MG/DL (0.50-1.00)
[2018-03-09] MEDS: LIPASE/PROTEASE/AMYLASE (12,000/38,000/60,000) CAP PO SCH ×3 (09:25→18:00)
[2018-03-09] MEDS: ONDANSETRON HCL 4 MG/2 ML VIAL IV PRN ×2 (09:25→21:52)
[2018-03-09] MEDS: DILTIAZEM-CD 120 MG CAP ER PO SCH (09:26)
[2018-03-09] MEDS: METOPROLOL TARTRATE 25 MG TAB PO SCH ×2 (09:26→21:46)
--- NOTE | 2018-03-09 11:14 | HHI.GIFU ---
Subjective Remarks Resting in the bed appears fairly weak but answers questions appropriately Encourage dangle on side of the bed and some movement turning in the bed Still having some generalized abdominal soreness and tenderness Gastric tube continues clamped Biliary tube right abdomen draining dark bilious fluid Afebrile (Jordana Sebastian) Objective Vitals I&O Vital Signs Date Time Temp Pulse Resp B/P (MAP) Pulse Ox O2 Delivery O2 Flow Rate FiO2 03/09/18 11:04 94 03/09/18 08:00 98.7 71 18 173/79 (110) 98 03/09/18 04:30 98.3 66 18 160/74 (102) 94 03/09/18 00:15 97.7 64 19 135/60 (85) 97 03/08/18 21:55 98.6 61 17 148/66 (93) 95 03/08/18 21:45 21 03/08/18 12:18 98.0 62 20 156/71 (99) 98 I/O 03/08/18 03/08/18 03/08/18 03/09/18 03/09/18 03/09/18 07:00 15:00 23:00 07:00 15:00 23:00 Intake Total 600 ml 935 ml Output Total 25 ml 10 ml Balance 575 ml 925 ml Intake Oral 500 ml 935 ml IV Total 100 ml Drainage Total 25 ml 10 ml # Voids 3 1 1 5 # Bowel Movements 1 1 0 1 Laboratory Laboratory Tests Test 03/09/18 06:44 White Blood Count 10.9 Red Blood Count 3.66 Hemoglobin 10.5 Hematocrit 31.7 Mean Corpuscular Volume 86.6 Mean Corpuscular Hemoglobin 28.6 Mean Corpuscular Hemoglobin Concent 33.1 Red Cell Distribution Width 13.9 Platelet Count 234 Mean Platelet Volume 9.4 Neutrophils (%) (Auto) 79.9 Lymphocytes (%) (Auto) 10.6 Monocytes (%) (Auto) 7.4 Eosinophils (%) (Auto) 1.7 Basophils (%) (Auto) 0.4 Neutrophils # (Auto) 8.7 Lymphocytes # (Auto) 1.2 Monocytes # (Auto) 0.8 Eosinophils # (Auto) 0.2 Basophils # (Auto) 0.0 CBC Comment DIFF FINAL Differential Comment Blood Urea Nitrogen 28 Creatinine 2.13 Random Glucose 81 Calcium Level 8.6 Magnesium Level 2.0 Sodium Level 142 Potassium Level 3.6 Chloride Level 109 Carbon Dioxide Level 21.9 Anion Gap 11 Estimat Glomerular Filtration Rate 27 Date/Time Source Procedure Growth Status 03/03/18 08:45 Blood Peripheral Aerobic Blood Culture - Final NO GROWTH IN 5 DAYS Complete 03/03/18 08:45 Anaerobic Blood Culture - Final Escherichia Coli Complete Imaging Last Impressions GI Procedure 03/07/18 0000 Signed Impressions: Service Date/Time: Wednesday, March 07, 2018 11:06 - CONCLUSION: ERCP as above. Yunier Santana MD Bile Duct Drainage 03/04/18 0000 Signed Impressions: Service Date/Time: Sunday, March 04, 2018 12:02 - CONCLUSION: 1. Very severe obstruction of the proximal common bile duct stent with very challenging recanalization requiring multiple wires and catheters. 2. Uncomplicated biliary stent placement as above. Plan: Patient may require upsizing of the catheter as only an 8 B[place]udian catheter could be placed. half-way, consideration may be given to extending the stent centrally and distally although sufficient radial strength to allow for stent deployment in the currently obstructed proximal stent is of significant concern. Bhavin Montemayor MD Abdomen X-Ray 03/04/18 0000 Signed Impressions: Service Date/Time: Sunday, March 04, 2018 16:53 - CONCLUSION: No evidence of obstruction. Tube in the jejunum. Jamie Tabor MD FACR Abdomen/Pelvis CT 03/03/18 0820 Signed Impressions: Service Date/Time: February 09:06 - CONCLUSION: 1. Very mild peripancreatic fluid stranding which may represent low-grade pancreatitis. 2. Common bile duct stent noted in place. There is no evidence of intrahepatic biliary duct dilatation. 3. Significant soft tissue fullness in the bret hepatis surrounding the proximal portion of the stent. 4. Status post cholecystectomy. 5. Gastric balloon of the gastrojejunostomy as migrated into the stomach and needs to be pulled back and secured. 6. Degenerative anterolisthesis at L5-S1 with advanced degenerative changes in the lower lumbar spine. 7. Mild airspace disease left base. Baron Shin MD Physical Exam General, 82-year-old female resting in the bed, smiling, answering questions appropriately Neurologically awake and responds appropriately to simple questions Skin pink mucous membranes warm and dry Cardiovascular S1-S2 rhythm regular Pulmonary low volumes but no obvious shortness of breath or rhonchi GI, bowel sounds soft, active round, mild generalized tenderness to light palpation Psychiatric mood and affect are appropriate (Jordana Sebastian) Assessment and Plan Plan Assessment: - Acute on chronic pancreatitis- secondary to gallstones S/P ERCP yesterday --> Multiple stones, migrated metal stent up into CBD, could not put plastic stent due to kink in current stent S/P IR for PTC today, pt returned from IR just prior to my exam, report pending. PTC drain with 40 mL of bile colored drainage Current labs trending down: AST-151 ALT-259 Alk phos-220 T bili-2.1 CT abdomen and pelvis W/O IV contrast (03/03) --> Very mild peripancreatic fluid stranding which may represent low-grade pancreatitis. Common bile duct stent noted in place. There is no evidence of intrahepatic biliary duct dilatation. Significant soft tissue fullness in the bret hepatis surrounding the proximal portion of the stent. Status post cholecystectomy. Gastric balloon of the gastrojejunostomy as migrated into the stomach and needs to be pulled back and secured. Degenerative anterolisthesis at L5-S1 with advanced degenerative changes in the lower lumbar spine. Mild airspace disease left base. Previous CROSS: EUS in 2016 revealed unremarkable pancreas IgG4 25.1 JING negative CA 19-9 42.3 (Dec 2015) - Gastroparesis- well controlled with GJ tube. (03/05) --> S/P biliary drainage with stent placement by IR (03/04) --> . Very severe obstruction of the proximal common bile duct stent with very challenging recanalization requiring multiple wires and catheters. Uncomplicated biliary stent placement as above. IR notes ": Patient may require upsizing of the catheter as only an 8 Bermudian catheter could be placed. half-way, consideration may be given to extending the stent centrally and distally although sufficient radial strength to allow for stent deployment in the currently obstructed proximal stent is of significant concern." Approx 20 mL of bile colored drainage in the PTC bag. GJ tube placement confirmed with KUB --> Tube in the jejunum Pt complaining of continued abdominal pain today, some nausea but states it is improving. Repeat labs from today show improvement in LFTs, trending down (03/06) Pt with no GI complaints at this time. She spoke with Dr. Ortega yesterday and is aware of ERCP tomorrow. Requesting I speak with her daughter, Caitlyn. I spoke with Caitlyn over the phone and answered her questions. "The biliary obstruction due to sludge and stone impaction of the metal biliary stent has been partially resolved by an internal/external stent placement by interventional radiology we will plan for an ERCP on Wednesday so as to obtain proper internal drainage and hopefully resolve the issue of the external biliary drain" LFTs continue to trend down 03/08/ S/P ERCP,03/07/18, For Choledocholithiasis, biliary stent occlusion Dr. Ortega discussed with interventional radiology with regards to the need to remove the internal/external stent at some point in the near future Once the internal/external stent has been removed we will proceed with a repeat ERCP with the intention of either removing this old metallic stent and replacing it with another or just double stenting. She continues to have abdominal pain requiring pain management, biliary tube draining dark bilious fluid as well as gastric tube which is clamped. Patient is taking clear liquids by mouth and appears to be tolerating without cough, nausea or vomiting. Lipase level 99. LFTs 12 AST, ALT 56. Hemoglobin 10.1. 03/09/2018 patient is currently not having any nausea and vomiting, gastric tube is clamped left abdomen biliary tube right abdomen continues to drain dark bilious fluid. States BM early a.m. loose brown no obvious blood. Hemoglobin 10.5 Spoke with attending and called IR. Plan is for cholangiogram ordered per Dr. Lala, for evaluation and possible removal of biliary tube. A report will follow PLAN: Diet, encourage food and p.o. fluids continue clear liquids for now PPI pain management per attending Creon, Antiemetics Antibiotics per attending IR cholangiogram to evaluate biliary drain and current recommendations. Next steps include internal and external stent removed possibly 2 or [address] to allow for a mature tract. A repeat ERCP will be done at that time to determine her needs of possible re-stent or removal. Supportive care This patient's been seen by myself and Dr. Ortega, it was written on his behalf (Jordana Sebastian) Physician Comments Patient seen and examined Agree with above Continue with current supportive care Monitor labs Cholangiogram noted and internal/external stent has been removed I think at some point in the near future we will pursue a repeat ERCP so as to either remove current stent or place another stent within this 1 so as to reduce potential for stone accumulation and blockage (Gregg Ortega MD) Jordana Sebastian Mar 09, 2018 11:14 Gregg Ortega MD Mar 09, 2018 21:54
[2018-03-09] MEDS: PANTOPRAZOLE SODIUM 40 MG VIAL IV PUSH SCH ×2 (12:32→21:47)
--- NOTE | 2018-03-09 16:07 | HHI.PR ---
Subjective Remarks No new complaints. Objective Vitals Vital Signs Date Time Temp Pulse Resp B/P (MAP) Pulse Ox O2 Delivery O2 Flow Rate FiO2 03/09/18 12:00 98.7 62 18 170/75 (106) 97 03/09/18 11:04 94 03/09/18 08:00 98.7 71 18 173/79 (110) 98 03/09/18 04:30 98.3 66 18 160/74 (102) 94 03/09/18 00:15 97.7 64 19 135/60 (85) 97 03/08/18 21:55 98.6 61 17 148/66 (93) 95 03/08/18 21:45 21 Result Diagram: 03/09/18 0644 03/09/18 0644 Imaging Last Impressions GI Procedure 03/07/18 0000 Signed Impressions: Service Date/Time: Wednesday, March 07, 2018 11:06 - CONCLUSION: ERCP as above. Yunier Santana MD Bile Duct Drainage 03/04/18 0000 Signed Impressions: Service Date/Time: Sunday, March 04, 2018 12:02 - CONCLUSION: 1. Very severe obstruction of the proximal common bile duct stent with very challenging recanalization requiring multiple wires and catheters. 2. Uncomplicated biliary stent placement as above. Plan: Patient may require upsizing of the catheter as only an 8 Kosovan catheter could be placed. baller tender, consideration may be given to extending the stent centrally and distally although sufficient radial strength to allow for stent deployment in the currently obstructed proximal stent is of significant concern. Bhavin Montemayor MD Abdomen X-Ray 03/04/18 0000 Signed Impressions: Service Date/Time: Sunday, March 04, 2018 16:53 - CONCLUSION: No evidence of obstruction. Tube in the jejunum. Jamie Tabor MD FACR Abdomen/Pelvis CT 03/03/18 0820 Signed Impressions: Service Date/Time: February 09:06 - CONCLUSION: 1. Very mild peripancreatic fluid stranding which may represent low-grade pancreatitis. 2. Common bile duct stent noted in place. There is no evidence of intrahepatic biliary duct dilatation. 3. Significant soft tissue fullness in the bret hepatis surrounding the proximal portion of the stent. 4. Status post cholecystectomy. 5. Gastric balloon of the gastrojejunostomy as migrated into the stomach and needs to be pulled back and secured. 6. Degenerative anterolisthesis at L5-S1 with advanced degenerative changes in the lower lumbar spine. 7. Mild airspace disease left base. Baron Shin MD Objective Remarks General: NAD, AAOx3 Chest: CTA Cardiac: Regular Abd: +BS, soft, upper abd tenderness Ext: No edema A/P Problem List: (1) Pancreatitis, recurrent ICD Codes: K86.1 - Recurrent pancreatitis Status: Acute Plan: Recurrent Idiopathic pancreatitis Abdominal pain Elevated LFTs Biliary obstruction GNR biliary sepsis - Pt is an 82 y/o female with recurrent idiopathic pancreatitis. Pt was evaluated with ERCP was during her last admission on 06/10/17 --> pt had prior sphincterotomy and a metal stent in the bile duct and were able to obtain easy cannulation of the common bile duct but the stent was clogged up with sludge and stones and so using an 8 mm balloon the stent and the distal CBD were cleaned out then was lavaged and then further cleaning was performed and then an obstructive cholangiogram was finally able to clear the common bile duct of all filling defects. - Pt presented to the ED at [facility] [place] on 03/03/18 with complaints of worsening abdominal pain, N/V for the last 2-3 days. She reports that the pain is the same pain that she has had previously with her pancreatitis. - Her labs in the ED revealed WBC count 22, Cr 2.84/BUN 38, TBili 1.8, AST 646, ALT 461, AlkPhos 349. - CT Abd/pelvis (03/03) --> Vvery mild peripancreatic fluid stranding which may represent low-grade pancreatitis, common bile duct stent noted in place, no evidence of intrahepatic biliary duct dilatation, significant soft tissue fullness in the bret hepatis surrounding the proximal portion of the stent, s/ p cholecystectomy, gastric balloon of the gastrojejunostomy as migrated into the stomach and needs to be pulled back and secured, and degenerative anterolisthesis at L5-S1 with advanced degenerative changes in the lower lumbar spine and mild airspace disease left base. - ERCP (03/03/18) --> Multiple stones, migrated metal stent up into CBD, could not put plastic stent due to "kink" in current stent according to GI notes - Pt had PTC 03/04 by IR -->severe obstruction of the proximal common bile duct stent with very challenging recanalization requiring multiple wires and catheters. Uncomplicated biliary stent placement - Repeat ERCP (03/07/18) --> Metallic stent was occluded for the most part with sludge and stones with a noted internal/external stent piercing this clogging and allowing for drainage into the duodenum once he was able to booth through the clogging an 8 mm balloon was attempted but then a CRE balloon with varying sizes up to a 10 Kosovan was used to clean out the metallic stent within the bile duct and he was able to confirm complete clearance of the stent with good emptying through the stent. - GI discussed the case with IR after the ERCP on 03/07 and it was recommended that the internal/external stent needs to be removed at some point in the near future and once the internal/external stent has been removed we will proceed with a repeat ERCP with the intention of either removing this old metallic stent and replacing it with another or just double stenting. - 03/09/18 Pt underwent percutaneous cholangiogram. External portion of biliary drain was removed. - LFTs and renal function improved from admission - IV Rocephin (03/07 - present) - Blood cultures (419) --> 12/19 bottles growing E. coli. - Dilaudid. [place]. - advance to full liquid diet - DVT prophylaxis with SCDs (2) Elevated liver enzymes ICD Codes: R74.8 - Abnormal levels of other serum enzymes Status: Acute Plan: - improving from admission. (3) Acute on chronic kidney disease, stage 3 ICD Codes: N18.3 - Acute worsening of stage 3 chronic kidney disease Status: Chronic Plan: - acute on chronic CKD- stage 3 - number improved from admission. Alexander Eddy DO Mar 09, 2018 16:07
[2018-03-09] MEDS ORDERED: IOHEXOL 350 MG/ML 50 ML BTL (for RAD DIAG) OTHER ONE (16:20)
--- NOTE | 2018-03-09 16:27 | RADRPT ---
EXAM DATE/TIME: 03/09/2018 15:15 [place] COMPARISON: No previous studies available for comparison. INDICATIONS : Patient with history recurrent pancreatitis.Evaluating billary tube for possible removal. MEDICAL HISTORY : 1. Pancreatitis 2. CKD, stage 3 3. anxiety 4. GERD 5. HTN SURGICAL HISTORY : 1. Lap ruth 2. cataract surgery 3. ERCP 4. EUS 5. GJ tube 6. celiac plexus block ENCOUNTER: Subsequent ACUITY: 1 week PAIN SCORE: 2/10 LOCATION: Right upper quadrant FLUORO TIME: 1.4 minutes IMAGE SERIES: 3 CONTRAST: 15 cc Omnipaque (iohexol) 350 PROCEDURE : 1. tube cholangiogram The risks, benefits and alternatives to the procedure were explained and verbal and written consent w as obtained. The site was prepped in sterile fashion. Full sterile technique was used, including ca p, mask, sterile gloves and gown and a large sterile sheet. Hand hygiene and 2% chlorhexidine and/or betadine/alcohol prep was utilized per protocol for cutaneous antisepsis. [employer] image shows only internal/external drain traversing a metallic biliary stent. Multiple Silastic stents project over the right lower abdomen. Contrast injection showed a patent channel through the stent with spillage of contrast into the duode num. The internal/external drain was removed. 6 Sami side-port sheath was advanced over the wire. C ontrast injection again showed a channel through the stent with free passage of contrast into the duo denum. Therefore, the internal/external drain was removed. Dermatotomy site was dressed with Vaseline gauze and a Primapore dressing. CONCLUSION: 1. Some intimal hyperplasia within the distal aspect of the biliary stent but there is a patent chann el down to the small bowel. 2. Internal/external drain was removed. Eliud Lala MD on March 09, 2018 at 16:20 Board Certified Radiologist. This report was verified electronically.
[2018-03-09] MEDS: cefTRIAXone INJ 1,000 MG in SODIUM CHLORIDE 0.9% INJ 100 ML IV SCH (21:47)
[2018-03-10] VITALS (8 sets, daily range): BP systolic 134–180; BP diastolic 65–85; PULSE 65–80; RESP 17–19; TEMP 98–99.6; O2SAT 95–98
[2018-03-10] MEDS: HYDROmorphone HCL PF 2 MG/ML VIAL IV PUSH PRN ×3 (02:27→16:13)
[2018-03-10] MEDS: ONDANSETRON HCL 4 MG/2 ML VIAL IV PRN ×4 (02:28→22:18)
[2018-03-10] MEDS: ACETAMINOPHEN/HYDROcodone 325 MG/10 MG TAB PO PRN ×4 (04:27→21:01)
[2018-03-10] MEDS: LIPASE/PROTEASE/AMYLASE (12,000/38,000/60,000) CAP PO SCH ×3 (08:49→18:09)
[2018-03-10] MEDS: METOPROLOL TARTRATE 25 MG TAB PO SCH ×2 (08:49→21:01)
[2018-03-10] MEDS: DILTIAZEM-CD 120 MG CAP ER PO SCH (08:52)
[2018-03-10] MEDS ORDERED: DILTIAZEM-CD 120 MG CAP ER PO ONE (11:00)
[2018-03-10] MEDS: PANTOPRAZOLE SODIUM 40 MG VIAL IV PUSH SCH ×2 (11:12→22:18)
--- NOTE | 2018-03-10 14:17 | HHI.GIFU ---
Subjective Remarks Lying almost flat resting in the bed Appears weak, but noted some gradual improvement Afebrile Biliary tube removed yesterday p.m. (Jordana Sebastian) Objective Vitals I&O Vital Signs Date Time Temp Pulse Resp B/P (MAP) Pulse Ox O2 Delivery O2 Flow Rate FiO2 03/10/18 12:49 97 21 03/10/18 12:00 98.4 65 17 162/72 (102) 95 03/10/18 08:00 98.1 71 17 164/74 (104) 95 03/10/18 05:30 162/76 (104) 03/10/18 04:15 98.0 75 19 180/78 (112) 97 03/10/18 00:30 98.0 80 19 135/85 (102) 98 03/09/18 21:49 98.3 75 18 162/74 (103) 99 03/09/18 16:00 97.9 68 18 172/81 (111) 96 I/O 03/09/18 03/09/18 03/09/18 03/10/18 03/10/18 03/10/18 07:00 15:00 23:00 07:00 15:00 23:00 Intake Total 935 ml 100 ml 885 ml Output Total 10 ml Balance 925 ml 100 ml 885 ml Intake Oral 935 ml 885 ml IV Total 100 ml Drainage Total 10 ml # Voids 5 1 6 # Bowel Movements 1 0 Laboratory Date/Time Source Procedure Growth Status 03/03/18 08:45 Blood Peripheral Aerobic Blood Culture - Final NO GROWTH IN 5 DAYS Complete 03/03/18 08:45 Anaerobic Blood Culture - Final Escherichia Coli Complete Imaging Last Impressions Cholangiogram 03/09/18 0000 Signed Impressions: Service Date/Time: Friday, March 09, 2018 15:15 - CONCLUSION: 1. Some intimal hyperplasia within the distal aspect of the biliary stent but there is a patent channel down to the small bowel. 2. Internal/external drain was removed. Eliud Lala MD GI Procedure 03/07/18 0000 Signed Impressions: Service Date/Time: Wednesday, March 07, 2018 11:06 - CONCLUSION: ERCP as above. Yunier Santana MD Bile Duct Drainage 03/04/18 0000 Signed Impressions: Service Date/Time: Sunday, March 04, 2018 12:02 - CONCLUSION: 1. Very severe obstruction of the proximal common bile duct stent with very challenging recanalization requiring multiple wires and catheters. 2. Uncomplicated biliary stent placement as above. Plan: Patient may require upsizing of the catheter as only an 8 Italian catheter could be placed. senior living, consideration may be given to extending the stent centrally and distally although sufficient radial strength to allow for stent deployment in the currently obstructed proximal stent is of significant concern. Bhavin Montemayor MD Abdomen X-Ray 03/04/18 0000 Signed Impressions: Service Date/Time: Sunday, March 04, 2018 16:53 - CONCLUSION: No evidence of obstruction. Tube in the jejunum. Jamie Tabor MD FACR Abdomen/Pelvis CT 03/03/18 0820 Signed Impressions: Service Date/Time: February 09:06 - CONCLUSION: 1. Very mild peripancreatic fluid stranding which may represent low-grade pancreatitis. 2. Common bile duct stent noted in place. There is no evidence of intrahepatic biliary duct dilatation. 3. Significant soft tissue fullness in the bret hepatis surrounding the proximal portion of the stent. 4. Status post cholecystectomy. 5. Gastric balloon of the gastrojejunostomy as migrated into the stomach and needs to be pulled back and secured. 6. Degenerative anterolisthesis at L5-S1 with advanced degenerative changes in the lower lumbar spine. 7. Mild airspace disease left base. Baron Shin MD Physical Exam General: resting in the bed, appears comfortable while lying still answering questions appropriately Neurologically awake and responds appropriately to simple questions Skin pink mucous membranes warm and dry Cardiovascular S1-S2 rhythm regular Pulmonary low volumes but no obvious shortness of breath or rhonchi GI, bowel sounds soft, active round, mild generalized tenderness to light palpation, biliary tube discontinued, gastric tube clamped intact Psychiatric mood and affect are appropriate (Jordana Sebastian) Assessment and Plan Plan Assessment: - Acute on chronic pancreatitis- secondary to gallstones S/P ERCP yesterday --> Multiple stones, migrated metal stent up into CBD, could not put plastic stent due to kink in current stent S/P IR for PTC today, pt returned from IR just prior to my exam, report pending. PTC drain with 40 mL of bile colored drainage Current labs trending down: AST-151 ALT-259 Alk phos-220 T bili-2.1 CT abdomen and pelvis W/O IV contrast (03/03) --> Very mild peripancreatic fluid stranding which may represent low-grade pancreatitis. Common bile duct stent noted in place. There is no evidence of intrahepatic biliary duct dilatation. Significant soft tissue fullness in the bret hepatis surrounding the proximal portion of the stent. Status post cholecystectomy. Gastric balloon of the gastrojejunostomy as migrated into the stomach and needs to be pulled back and secured. Degenerative anterolisthesis at L5-S1 with advanced degenerative changes in the lower lumbar spine. Mild airspace disease left base. Previous CROSS: EUS in 2016 revealed unremarkable pancreas IgG4 25.1 JING negative CA 19-9 42.3 (Dec 2015) - Gastroparesis- well controlled with GJ tube. (03/05) --> S/P biliary drainage with stent placement by IR (03/04) --> . Very severe obstruction of the proximal common bile duct stent with very challenging recanalization requiring multiple wires and catheters. Uncomplicated biliary stent placement as above. IR notes ": Patient may require upsizing of the catheter as only an 8 Italian catheter could be placed. manager intermediate, consideration may be given to extending the stent centrally and distally although sufficient radial strength to allow for stent deployment in the currently obstructed proximal stent is of significant concern." Approx 20 mL of bile colored drainage in the PTC bag. GJ tube placement confirmed with KUB --> Tube in the jejunum Pt complaining of continued abdominal pain today, some nausea but states it is improving. Repeat labs from today show improvement in LFTs, trending down (03/06) Pt with no GI complaints at this time. She spoke with Dr. Ortega yesterday and is aware of ERCP tomorrow. Requesting I speak with her daughter, Caitlyn. I spoke with Caitlyn over the phone and answered her questions. "The biliary obstruction due to sludge and stone impaction of the metal biliary stent has been partially resolved by an internal/external stent placement by interventional radiology we will plan for an ERCP on Wednesday so as to obtain proper internal drainage and hopefully resolve the issue of the external biliary drain" LFTs continue to trend down 03/08/ S/P ERCP,03/07/18, For Choledocholithiasis, biliary stent occlusion Dr. Ortega discussed with interventional radiology with regards to the need to remove the internal/external stent at some point in the near future Once the internal/external stent has been removed we will proceed with a repeat ERCP with the intention of either removing this old metallic stent and replacing it with another or just double stenting. She continues to have abdominal pain requiring pain management, biliary tube draining dark bilious fluid as well as gastric tube which is clamped. Patient is taking clear liquids by mouth and appears to be tolerating without cough, nausea or vomiting. Lipase level 99. LFTs 12 AST, ALT 56. Hemoglobin 10.1. 03/09/2018 patient is currently not having any nausea and vomiting, gastric tube is clamped left abdomen biliary tube right abdomen continues to drain dark bilious fluid. States BM early a.m. loose brown no obvious blood. Hemoglobin 10.5 Spoke with attending and called IR. Plan is for cholangiogram ordered per Dr. Lala, for evaluation and possible removal of biliary tube. A report will follow 03/10/2018 patient had a cholangiogram done in the p.m. of 03/09/2018 report showed some small hyperplasia within the distal aspect of the biliary stent but there is a patent channel down to the small bowel internal/external drain was removed. Patient tolerated procedure well. Still has some mild minimal abdominal soreness where biliary tube was but no bloating, no nausea no vomiting. PLAN: Diet, tolerating p.o. liquids without any difficulty, will increase diet to full liquids but if patient has nausea or vomiting, go back to clear liquids PPI Creon, Antiemetics Antibiotics per attending GI plan of care , next steps include internal and external stent removed possibly 2 or [address] to allow for a mature tract. A repeat ERCP will be done at that time to determine her needs of possible re-stent or removal. Supportive care This patient's been seen by myself and Dr. Ortega, it was written on his behalf (Jordana Sebastian) Physician Comments The interventional radiology remove the internal/external drain yesterday Question is when to do the repeat ERCP at this point I will hold off Most likely will plan on an outpatient ERCP with stent removal or restenting For now continue with current supportive care and monitor labs Patient is probably close to going home She is to follow-up with GI post discharge (Gregg Ortega MD) Jordana Sebastian Mar 10, 2018 14:17 Gregg Ortega MD Mar 10, 2018 20:48
--- NOTE | 2018-03-10 16:45 | HHI.PR ---
Subjective Remarks No new complaints. Pt is tolerating full liquid diet. Pt denies fever or chills. Objective Vitals Vital Signs Date Time Temp Pulse Resp B/P (MAP) Pulse Ox O2 Delivery O2 Flow Rate FiO2 03/10/18 12:49 97 21 03/10/18 12:00 98.4 65 17 162/72 (102) 95 03/10/18 08:00 98.1 71 17 164/74 (104) 95 03/10/18 05:30 162/76 (104) 03/10/18 04:15 98.0 75 19 180/78 (112) 97 03/10/18 00:30 98.0 80 19 135/85 (102) 98 03/09/18 21:49 98.3 75 18 162/74 (103) 99 Result Diagram: 03/09/18 0644 03/09/18 0644 Imaging Last Impressions Cholangiogram 03/09/18 0000 Signed Impressions: Service Date/Time: Friday, March 09, 2018 15:15 - CONCLUSION: 1. Some intimal hyperplasia within the distal aspect of the biliary stent but there is a patent channel down to the small bowel. 2. Internal/external drain was removed. Eliud Lala MD GI Procedure 03/07/18 0000 Signed Impressions: Service Date/Time: Wednesday, March 07, 2018 11:06 - CONCLUSION: ERCP as above. Yunier Santana MD Bile Duct Drainage 03/04/18 0000 Signed Impressions: Service Date/Time: Sunday, March 04, 2018 12:02 - CONCLUSION: 1. Very severe obstruction of the proximal common bile duct stent with very challenging recanalization requiring multiple wires and catheters. 2. Uncomplicated biliary stent placement as above. Plan: Patient may require upsizing of the catheter as only an 8 Burundian catheter could be placed. jail, consideration may be given to extending the stent centrally and distally although sufficient radial strength to allow for stent deployment in the currently obstructed proximal stent is of significant concern. Bhavin Montemayor MD Abdomen X-Ray 03/04/18 0000 Signed Impressions: Service Date/Time: Sunday, March 04, 2018 16:53 - CONCLUSION: No evidence of obstruction. Tube in the jejunum. Jamie Tabor MD FACR Abdomen/Pelvis CT 03/03/18 0820 Signed Impressions: Service Date/Time: February 09:06 - CONCLUSION: 1. Very mild peripancreatic fluid stranding which may represent low-grade pancreatitis. 2. Common bile duct stent noted in place. There is no evidence of intrahepatic biliary duct dilatation. 3. Significant soft tissue fullness in the bret hepatis surrounding the proximal portion of the stent. 4. Status post cholecystectomy. 5. Gastric balloon of the gastrojejunostomy as migrated into the stomach and needs to be pulled back and secured. 6. Degenerative anterolisthesis at L5-S1 with advanced degenerative changes in the lower lumbar spine. 7. Mild airspace disease left base. Baron Shin MD Objective Remarks General: NAD, AAOx3 Chest: CTA Cardiac: Regular Abd: +BS, soft, upper abd tenderness Ext: No edema A/P Problem List: (1) Pancreatitis, recurrent ICD Codes: K86.1 - Recurrent pancreatitis Status: Acute Plan: Recurrent Idiopathic pancreatitis Abdominal pain Elevated LFTs Biliary obstruction GNR biliary sepsis - Pt is an 82 y/o female with recurrent idiopathic pancreatitis. Pt was evaluated with ERCP was during her last admission on 06/10/17 --> pt had prior sphincterotomy and a metal stent in the bile duct and were able to obtain easy cannulation of the common bile duct but the stent was clogged up with sludge and stones and so using an 8 mm balloon the stent and the distal CBD were cleaned out then was lavaged and then further cleaning was performed and then an obstructive cholangiogram was finally able to clear the common bile duct of all filling defects. - Pt [place] [facility] [place] with complaints of worsening abdominal pain, N/V for the last 2-3 days. She reports that the pain is the same pain that she has had previously with her pancreatitis. - Her labs in the ED revealed WBC count 22, Cr 2.84/BUN 38, TBili 1.8, AST 646, ALT 461, AlkPhos 349. - CT Abd/pelvis (03/03) --> Vvery mild peripancreatic fluid stranding which may represent low-grade pancreatitis, common bile duct stent noted in place, no evidence of intrahepatic biliary duct dilatation, significant soft tissue fullness in the bret hepatis surrounding the proximal portion of the stent, s/ p cholecystectomy, gastric balloon of the gastrojejunostomy as migrated into the stomach and needs to be pulled back and secured, and degenerative anterolisthesis at L5-S1 with advanced degenerative changes in the lower lumbar spine and mild airspace disease left base. - ERCP (03/03/18) --> Multiple stones, migrated metal stent up into CBD, could not put plastic stent due to "kink" in current stent according to GI notes - Pt had PTC 03/04 by IR -->severe obstruction of the proximal common bile duct stent with very challenging recanalization requiring multiple wires and catheters. Uncomplicated biliary stent placement - Repeat ERCP (03/07/18) --> Metallic stent was occluded for the most part with sludge and stones with a noted internal/external stent piercing this clogging and allowing for drainage into the duodenum once he was able to booth through the clogging an 8 mm balloon was attempted but then a CRE balloon with varying sizes up to a 10 Burundian was used to clean out the metallic stent within the bile duct and he was able to confirm complete clearance of the stent with good emptying through the stent. - GI discussed the case with IR after the ERCP on 03/07 and it was recommended that the internal/external stent needs to be removed at some point in the near future and once the internal/external stent has been removed we will proceed with a repeat ERCP with the intention of either removing this old metallic stent and replacing it with another or just double stenting. - 03/09/18 Pt underwent percutaneous cholangiogram. External portion of biliary drain was removed. Report showed some small hyperplasia within the distal aspect of the biliary stent but there is a patent channel down to the small bowel internal/external drain was removed. - LFTs and renal function improved from admission - IV Rocephin (03/07 - present) - Blood cultures (03/03) --> 2/4 bottles growing E. coli. - Obtain Repeat blood cultures (03/10/18) - Dilaudid. [place]. - advance to full liquid diet - DVT prophylaxis with SCDs (2) Elevated liver enzymes ICD Codes: R74.8 - Abnormal levels of other serum enzymes Status: Acute Plan: - improving from admission. (3) Acute on chronic kidney disease, stage 3 ICD Codes: N18.3 - Acute worsening of stage 3 chronic kidney disease Status: Chronic Plan: - acute on chronic CKD- stage 3 - number improved from admission. Alexander Eddy DO Mar 10, 2018 16:45
[2018-03-10] MEDS: cefTRIAXone INJ 1,000 MG in SODIUM CHLORIDE 0.9% INJ 100 ML IV SCH (21:01)
[2018-03-11] VITALS (7 sets, daily range): BP systolic 118–141; BP diastolic 58–69; PULSE 63–76; RESP 16–18; TEMP 97.9–99.3; O2SAT 94–98
[2018-03-11] MEDS: ACETAMINOPHEN/HYDROcodone 325 MG/10 MG TAB PO PRN ×4 (01:06→20:21)
[2018-03-11] MEDS: HYDROmorphone HCL PF 2 MG/ML VIAL IV PUSH PRN ×3 (05:18→17:53)
[2018-03-11] MEDS: LIPASE/PROTEASE/AMYLASE (12,000/38,000/60,000) CAP PO SCH ×3 (08:57→17:54)
[2018-03-11] MEDS: METOPROLOL TARTRATE 25 MG TAB PO SCH ×2 (08:57→20:21)
[2018-03-11] MEDS: DILTIAZEM-CD 120 MG CAP ER PO SCH (08:58)
[2018-03-11] MEDS: ONDANSETRON HCL 4 MG/2 ML VIAL IV PRN (08:58)
[2018-03-11] MEDS: PANTOPRAZOLE SODIUM 40 MG VIAL IV PUSH SCH (11:00)
[2018-03-11] MEDS: DILTIAZEM-CD 240 MG CAP ER PO SCH (12:18)
--- NOTE | 2018-03-11 12:51 | HHI.PR ---
Subjective Remarks No new complaints. Pt is tolerating PO intake. Objective Vitals Vital Signs Date Time Temp Pulse Resp B/P (MAP) Pulse Ox O2 Delivery O2 Flow Rate FiO2 03/11/18 12:21 99.3 63 16 124/60 (81) 97 03/11/18 08:00 98.3 74 18 139/69 (92) 94 03/11/18 04:00 97.9 76 18 141/65 (90) 95 03/11/18 00:00 97.9 68 18 134/64 (87) 98 03/10/18 21:34 21 03/10/18 20:00 99.6 77 18 141/65 (90) 98 03/10/18 16:00 98.0 77 17 134/69 (90) 96 03/10/18 12:49 97 21 03/11/18 03/11/18 03/12/18 15:00 23:00 07:00 # Voids 2 Result Diagram: 03/09/18 0644 03/09/18 0644 Imaging Last Impressions Cholangiogram 03/09/18 0000 Signed Impressions: Service Date/Time: Friday, March 09, 2018 15:15 - CONCLUSION: 1. Some intimal hyperplasia within the distal aspect of the biliary stent but there is a patent channel down to the small bowel. 2. Internal/external drain was removed. Eliud Lala MD GI Procedure 03/07/18 0000 Signed Impressions: Service Date/Time: Wednesday, March 07, 2018 11:06 - CONCLUSION: ERCP as above. Yunier Santana MD Bile Duct Drainage 03/04/18 0000 Signed Impressions: Service Date/Time: Sunday, March 04, 2018 12:02 - CONCLUSION: 1. Very severe obstruction of the proximal common bile duct stent with very challenging recanalization requiring multiple wires and catheters. 2. Uncomplicated biliary stent placement as above. Plan: Patient may require upsizing of the catheter as only an 8 Amharic catheter could be placed. 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 Bhavin Montemayor MD Abdomen X-Ray 03/04/18 0000 Signed Impressions: Service Date/Time: Sunday, March 04, 2018 16:53 - CONCLUSION: No evidence of obstruction. Tube in the jejunum. Jamie Tabor MD FACR Abdomen/Pelvis CT 03/03/18 0820 Signed Impressions: Service Date/Time: February 09:06 - CONCLUSION: 1. Very mild peripancreatic fluid stranding which may represent low-grade pancreatitis. 2. Common bile duct stent noted in place. There is no evidence of intrahepatic biliary duct dilatation. 3. Significant soft tissue fullness in the bret hepatis surrounding the proximal portion of the stent. 4. Status post cholecystectomy. 5. Gastric balloon of the gastrojejunostomy as migrated into the stomach and needs to be pulled back and secured. 6. Degenerative anterolisthesis at L5-S1 with advanced degenerative changes in the lower lumbar spine. 7. Mild airspace disease left base. Baron Shin MD Objective Remarks General: NAD, AAOx3 Chest: CTA Cardiac: Regular Abd: +BS, soft, upper abd tenderness Ext: No edema A/P Problem List: (1) Pancreatitis, recurrent ICD Codes: K86.1 - Recurrent pancreatitis Status: Acute Plan: Recurrent Idiopathic pancreatitis Abdominal pain Elevated LFTs Biliary obstruction GNR biliary sepsis - Pt is an 82 y/o female with recurrent idiopathic pancreatitis. Pt was evaluated with ERCP was during her last admission on 06/10/17 --> pt had prior sphincterotomy and a metal stent in the bile duct and were able to obtain easy cannulation of the common bile duct but the stent was clogged up with sludge and stones and so using an 8 mm balloon the stent and the distal CBD were cleaned out then was lavaged and then further cleaning was performed and then an obstructive cholangiogram was finally able to clear the common bile duct of all filling defects. - Pt presented to the ED at [facility] on 03/03/18 with complaints of worsening abdominal pain, N/V for the last 2-3 days. She reports that the pain is the same pain that she has had previously with her pancreatitis. - Her labs in the ED revealed WBC count 22, Cr 2.84/BUN 38, TBili 1.8, AST 646, ALT 461, AlkPhos 349. - CT Abd/pelvis (03/03) --> Vvery mild peripancreatic fluid stranding which may represent low-grade pancreatitis, common bile duct stent noted in place, no evidence of intrahepatic biliary duct dilatation, significant soft tissue fullness in the bret hepatis surrounding the proximal portion of the stent, s/ p cholecystectomy, gastric balloon of the gastrojejunostomy as migrated into the stomach and needs to be pulled back and secured, and degenerative anterolisthesis at L5-S1 with advanced degenerative changes in the lower lumbar spine and mild airspace disease left base. - ERCP (03/03/18) --> Multiple stones, migrated metal stent up into CBD, could not put plastic stent due to "kink" in current stent according to GI notes - Pt had PTC 03/04 by IR -->severe obstruction of the proximal common bile duct stent with very challenging recanalization requiring multiple wires and catheters. Uncomplicated biliary stent placement - Repeat ERCP (03/07/18) --> Metallic stent was occluded for the most part with sludge and stones with a noted internal/external stent piercing this clogging and allowing for drainage into the duodenum once he was able to booth through the clogging an 8 mm balloon was attempted but then a CRE balloon with varying sizes up to a 10 Amharic was used to clean out the metallic stent within the bile duct and he was able to confirm complete clearance of the stent with good emptying through the stent. - GI discussed the case with IR after the ERCP on 03/07 and it was recommended that the internal/external stent needs to be removed at some point in the near future and once the internal/external stent has been removed we will proceed with a repeat ERCP with the intention of either removing this old metallic stent and replacing it with another or just double stenting. - 03/09/18 Pt underwent percutaneous cholangiogram. External portion of biliary drain was removed. Report showed some small hyperplasia within the distal aspect of the biliary stent but there is a patent channel down to the small bowel internal/external drain was removed. - LFTs and renal function improved from admission - IV Rocephin (03/07 - present) - Blood cultures (03/03) --> 2/4 bottles growing E. coli. - Repeat blood cultures (03/11/18) --> pending - anticipate d/c to home with [facility] on 03/14/18 - Dilaudid. [place]. - soft diet - DVT prophylaxis with SCDs (2) Elevated liver enzymes ICD Codes: R74.8 - Abnormal levels of other serum enzymes Status: Acute Plan: - improving from admission. (3) Acute on chronic kidney disease, stage 3 ICD Codes: N18.3 - Acute worsening of stage 3 chronic kidney disease Status: Chronic Plan: - acute on chronic CKD- stage 3 - number improved from admission. Alexander Eddy DO Mar 11, 2018 12:50
[2018-03-11] MEDS ORDERED: ONDANSETRON HCL 4 MG/2 ML VIAL IV PUSH ONE (13:00)
--- NOTE | 2018-03-11 15:16 | HHI.GIFU ---
Subjective Remarks Resting in the bed Appears tired and malaise Did not appear to be moving around very much Hemoglobin 10.5 Still having some right upper quadrant and mid abdominal tenderness Low-grade temp 99.3 (Jordana Sebastian) Objective Vitals I&O Vital Signs Date Time Temp Pulse Resp B/P (MAP) Pulse Ox O2 Delivery O2 Flow Rate FiO2 03/11/18 13:36 95 21 03/11/18 12:21 99.3 63 16 124/60 (81) 97 03/11/18 08:00 98.3 74 18 139/69 (92) 94 03/11/18 04:00 97.9 76 18 141/65 (90) 95 03/11/18 00:00 97.9 68 18 134/64 (87) 98 03/10/18 21:34 21 03/10/18 20:00 99.6 77 18 141/65 (90) 98 03/10/18 16:00 98.0 77 17 134/69 (90) 96 I/O 03/10/18 03/10/18 03/10/18 03/11/18 03/11/18 03/11/18 07:00 15:00 23:00 07:00 15:00 23:00 Intake Total 885 ml Balance 885 ml Intake Oral 885 ml # Voids 6 1 2 # Bowel Movements 0 1 Laboratory Date/Time Source Procedure Growth Status 03/11/18 00:18 Blood Peripheral Aerobic Blood Culture Pending Received 03/11/18 00:18 Blood Peripheral Anaerobic Blood Culture Pending Received Imaging Last Impressions Cholangiogram 03/09/18 0000 Signed Impressions: Service Date/Time: Friday, March 09, 2018 15:15 - CONCLUSION: 1. Some intimal hyperplasia within the distal aspect of the biliary stent but there is a patent channel down to the small bowel. 2. Internal/external drain was removed. Eliud Lala MD GI Procedure 03/07/18 0000 Signed Impressions: Service Date/Time: Wednesday, March 07, 2018 11:06 - CONCLUSION: ERCP as above. Yunier Santana MD Bile Duct Drainage 03/04/18 0000 Signed Impressions: Service Date/Time: Sunday, March 04, 2018 12:02 - CONCLUSION: 1. Very severe obstruction of the proximal common bile duct stent with very challenging recanalization requiring multiple wires and catheters. 2. Uncomplicated biliary stent placement as above. Plan: Patient may require upsizing of the catheter as only an 8 Georgian catheter could be placed. 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 Bhavin Montemayor MD Abdomen X-Ray 03/04/18 0000 Signed Impressions: Service Date/Time: Sunday, March 04, 2018 16:53 - CONCLUSION: No evidence of obstruction. Tube in the jejunum. Jamie Tabor MD FACR Abdomen/Pelvis CT 03/03/18 0820 Signed Impressions: Service Date/Time: February 09:06 - CONCLUSION: 1. Very mild peripancreatic fluid stranding which may represent low-grade pancreatitis. 2. Common bile duct stent noted in place. There is no evidence of intrahepatic biliary duct dilatation. 3. Significant soft tissue fullness in the bret hepatis surrounding the proximal portion of the stent. 4. Status post cholecystectomy. 5. Gastric balloon of the gastrojejunostomy as migrated into the stomach and needs to be pulled back and secured. 6. Degenerative anterolisthesis at L5-S1 with advanced degenerative changes in the lower lumbar spine. 7. Mild airspace disease left base. Baron Shin MD Physical Exam General: resting in the bed, appears comfortable while lying still answering questions appropriately, appears weak Neurologically awake and responds appropriately to simple questions Skin pink mucous membranes warm and dry Cardiovascular S1-S2 rhythm regular No shortness of breath GI, bowel sounds soft, active round, still having some mild right upper quadrant and mid abdominal pain receiving pain medication as needed, gastric tube clamped intact Psychiatric mood and affect are appropriate (Jordana Sebastian) Assessment and Plan Plan Assessment: - Acute on chronic pancreatitis- secondary to gallstones S/P ERCP yesterday --> Multiple stones, migrated metal stent up into CBD, could not put plastic stent due to kink in current stent S/P IR for PTC today, pt returned from IR just prior to my exam, report pending. PTC drain with 40 mL of bile colored drainage Current labs trending down: AST-151 ALT-259 Alk phos-220 T bili-2.1 CT abdomen and pelvis W/O IV contrast (03/03) --> Very mild peripancreatic fluid stranding which may represent low-grade pancreatitis. Common bile duct stent noted in place. There is no evidence of intrahepatic biliary duct dilatation. Significant soft tissue fullness in the bret hepatis surrounding the proximal portion of the stent. Status post cholecystectomy. Gastric balloon of the gastrojejunostomy as migrated into the stomach and needs to be pulled back and secured. Degenerative anterolisthesis at L5-S1 with advanced degenerative changes in the lower lumbar spine. Mild airspace disease left base. Previous CROSS: EUS in 2016 revealed unremarkable pancreas IgG4 25.1 JING negative CA 19-9 42.3 (Dec 2015) - Gastroparesis- well controlled with GJ tube. (03/05) --> S/P biliary drainage with stent placement by IR (03/04) --> . Very severe obstruction of the proximal common bile duct stent with very challenging recanalization requiring multiple wires and catheters. Uncomplicated biliary stent placement as above. IR notes ": Patient may require upsizing of the catheter as only an 8 Georgian catheter could be placed. 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 GJ tube placement confirmed with KUB --> Tube in the jejunum Pt complaining of continued abdominal pain today, some nausea but states it is improving. Repeat labs from today show improvement in LFTs, trending down (03/06) Pt with no GI complaints at this time. She spoke with Dr. Ortega yesterday and is aware of ERCP tomorrow. Requesting I speak with her daughter, Caitlyn. I spoke with Caitlyn over the phone and answered her questions. "The biliary obstruction due to sludge and stone impaction of the metal biliary stent has been partially resolved by an internal/external stent placement by interventional radiology we will plan for an ERCP on Wednesday so as to obtain proper internal drainage and hopefully resolve the issue of the external biliary drain" LFTs continue to trend down 03/08/ S/P ERCP,03/07/18, For Choledocholithiasis, biliary stent occlusion Dr. Ortega discussed with interventional radiology with regards to the need to remove the internal/external stent at some point in the near future Once the internal/external stent has been removed we will proceed with a repeat ERCP with the intention of either removing this old metallic stent and replacing it with another or just double stenting. She continues to have abdominal pain requiring pain management, biliary tube draining dark bilious fluid as well as gastric tube which is clamped. Patient is taking clear liquids by mouth and appears to be tolerating without cough, nausea or vomiting. Lipase level 99. LFTs 12 AST, ALT 56. Hemoglobin 10.1. 03/09/2018 patient is currently not having any nausea and vomiting, gastric tube is clamped left abdomen biliary tube right abdomen continues to drain dark bilious fluid. States BM early a.m. loose brown no obvious blood. Hemoglobin 10.5 Spoke with attending and called IR. Plan is for cholangiogram ordered per Dr. Lala, for evaluation and possible removal of biliary tube. A report will follow 03/10/, see note 03/11, patient appears to be weak and malaise does not appear to be moving around in bed very much. Still having right upper quadrant and mid abdominal pain. G-tube is clamped, low-grade temp noted 99.2 hemoglobin stable at 10.5. GI plan on an outpatient ERCP with stent removal or restenting, when patient is stable from attending standpoint patient can be discharged and follow-up with GI post discharge PLAN: Diet, encourage food and p.o. fluids continue clear liquids for now PPI Creon, Antiemetics Next steps include internal and external stent removed possibly 2 or [address] to allow for a mature tract. A repeat ERCP will be done at that time to determine her needs of possible re-stent or removal. Follow-up with GI in the office. Continue to monitor labs Supportive care This patient's been seen by myself and Dr. Ortega, it was written on his behalf (Jordana Sebastian) Plan Need to make a correction the internal and external stent has been removed Physician Comments Patient seen and examined Agree with above Continue with current supportive care Monitor labs Not much to add at this point from a GI perspective Patient may be discharged home from a GI standpoint Follow-up with GI post discharge We will sign off (Gregg Ortega MD) Jordana Sebastian Mar 11, 2018 15:16 Gregg Ortega MD Mar 11, 2018 18:07
[2018-03-11] MEDS: cefTRIAXone INJ 1,000 MG in SODIUM CHLORIDE 0.9% INJ 100 ML IV SCH (20:22)
[2018-03-12] VITALS: BP_SYST 113; BP_SYST 118; BP_DIAS 58; BP_DIAS 59; PULSE 65; RESP 18; TEMP 98.3; TEMP 98.6; O2SAT 97
[2018-03-12] MEDS: ONDANSETRON HCL 4 MG/2 ML VIAL IV PRN ×2 (00:07→08:23)
[2018-03-12] MEDS: HYDROmorphone HCL PF 2 MG/ML VIAL IV PUSH PRN ×4 (00:08→21:31)
[2018-03-12] MEDS: PANTOPRAZOLE SODIUM 40 MG VIAL IV PUSH SCH ×3 (00:08→21:45)
[2018-03-12] MEDS: ACETAMINOPHEN/HYDROcodone 325 MG/10 MG TAB PO PRN ×6 (01:54→23:10)
[2018-03-12 04:00] VITALS: BP 125/65; PULSE 74; RESP 18; TEMP 98.1; O2SAT 97
[2018-03-12 08:15] VITALS: BP 123/61; PULSE 70; RESP 18; TEMP 98.2; O2SAT 97
[2018-03-12] MEDS: METOPROLOL TARTRATE 25 MG TAB PO SCH ×2 (08:16→21:43)
[2018-03-12] MEDS: LIPASE/PROTEASE/AMYLASE (12,000/38,000/60,000) CAP PO SCH ×3 (08:16→16:06)
[2018-03-12] MEDS: DILTIAZEM-CD 240 MG CAP ER PO SCH (08:16)
--- NOTE | 2018-03-12 10:57 | HHI.PR ---
Subjective Remarks No new complaints Tolerated breakfast Objective Vitals Vital Signs Date Time Temp Pulse Resp B/P (MAP) Pulse Ox O2 Delivery O2 Flow Rate FiO2 03/12/18 08:50 16 03/12/18 08:15 98.2 70 18 123/61 (81) 97 03/12/18 04:00 98.1 74 18 125/65 (85) 97 03/12/18 00:00 98.3 65 18 113/59 (77) 97 03/11/18 20:00 98.6 65 18 118/58 (78) 97 03/11/18 16:00 98.2 68 18 131/62 (85) 96 03/11/18 13:36 95 21 03/11/18 12:21 99.3 63 16 124/60 (81) 97 Result Diagram: 03/09/18 0644 03/09/18 0644 Imaging Last Impressions Cholangiogram 03/09/18 0000 Signed Impressions: Service Date/Time: Friday, March 09, 2018 15:15 - CONCLUSION: 1. Some intimal hyperplasia within the distal aspect of the biliary stent but there is a patent channel down to the small bowel. 2. Internal/external drain was removed. Eliud Lala MD GI Procedure 03/07/18 0000 Signed Impressions: Service Date/Time: Wednesday, March 07, 2018 11:06 - CONCLUSION: ERCP as above. Yunier Santana MD Bile Duct Drainage 03/04/18 0000 Signed Impressions: Service Date/Time: Sunday, March 04, 2018 12:02 - CONCLUSION: 1. Very severe obstruction of the proximal common bile duct stent with very challenging recanalization requiring multiple wires and catheters. 2. Uncomplicated biliary stent placement as above. Plan: Patient may require upsizing of the catheter as only an 8 Citizen Of [place] catheter could be placed. 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 Bhavin Montemayor MD Abdomen X-Ray 03/04/18 0000 Signed Impressions: Service Date/Time: Sunday, March 04, 2018 16:53 - CONCLUSION: No evidence of obstruction. Tube in the jejunum. Jamie Tabor MD FACR Abdomen/Pelvis CT 03/03/18 0820 Signed Impressions: Service Date/Time: February 09:06 - CONCLUSION: 1. Very mild peripancreatic fluid stranding which may represent low-grade pancreatitis. 2. Common bile duct stent noted in place. There is no evidence of intrahepatic biliary duct dilatation. 3. Significant soft tissue fullness in the bret hepatis surrounding the proximal portion of the stent. 4. Status post cholecystectomy. 5. Gastric balloon of the gastrojejunostomy as migrated into the stomach and needs to be pulled back and secured. 6. Degenerative anterolisthesis at L5-S1 with advanced degenerative changes in the lower lumbar spine. 7. Mild airspace disease left base. Baron Shin MD Objective Remarks General: NAD, AAOx3 Chest: CTA Cardiac: Regular Abd: +BS, soft, upper abd tenderness Ext: No edema Procedures - ERCP (03/03/18) --> Multiple stones, migrated metal stent up into CBD, could not put plastic stent due to "kink" in current stent according to GI notes - PTC 03/04 by IR -->severe obstruction of the proximal common bile duct stent with very challenging recanalization requiring multiple wires and catheters. biliary stent placement - Repeat ERCP (03/07/18) --> Metallic stent was occluded for the most part with sludge and stones with a noted internal/external stent piercing this clogging and allowing for drainage into the duodenum once he was able to booth through the clogging an 8 mm balloon was attempted but then a CRE balloon with varying sizes up to a 10 Citizen [place] was used to clean out the metallic stent within the bile duct and he was able to confirm complete clearance of the stent with good emptying through the stent. - 03/09/18 Pt underwent percutaneous cholangiogram. External portion of biliary drain was removed. Report showed some small hyperplasia within the distal aspect of the biliary stent but there is a patent channel down to the small bowel internal/external drain was removed. A/P Problem List: (1) Pancreatitis, recurrent ICD Codes: K86.1 - Recurrent pancreatitis Status: Acute Plan: Recurrent Idiopathic pancreatitis Abdominal pain Elevated LFTs Biliary obstruction GNR biliary sepsis - Pt is an 82 y/o female with recurrent idiopathic pancreatitis. Pt was evaluated with ERCP was during her last admission on 06/10/17 --> pt had prior sphincterotomy and a metal stent in the bile duct and were able to obtain easy cannulation of the common bile duct but the stent was clogged up with sludge and stones and so using an 8 mm balloon the stent and the distal CBD were cleaned out then was lavaged and then further cleaning was performed and then an obstructive cholangiogram was finally able to clear the common bile duct of all filling defects. - Pt presented to the ED at [facility] on 03/03/18 with complaints of worsening abdominal pain, N/V for the last 2-3 days. She reports that the pain is the same pain that she has had previously with her pancreatitis. - Her labs in the ED revealed WBC count 22, Cr 2.84/BUN 38, TBili 1.8, AST 646, ALT 461, AlkPhos 349. - CT Abd/pelvis (03/03) --> very mild peripancreatic fluid stranding which may represent low-grade pancreatitis, common bile duct stent noted in place, no evidence of intrahepatic biliary duct dilatation, significant soft tissue fullness in the bret hepatis surrounding the proximal portion of the stent, s/ p cholecystectomy, gastric balloon of the gastrojejunostomy as migrated into the stomach and needs to be pulled back and secured, and degenerative anterolisthesis at L5-S1 with advanced degenerative changes in the lower lumbar spine and mild airspace disease left base. - ERCP (03/03/18) --> Multiple stones, migrated metal stent up into CBD, could not put plastic stent due to "kink" in current stent according to GI notes - Pt had PTC 03/04 by IR -->severe obstruction of the proximal common bile duct stent with very challenging recanalization requiring multiple wires and catheters. Uncomplicated biliary stent placement - Repeat ERCP (03/07/18) --> Metallic stent was occluded for the most part with sludge and stones with a noted internal/external stent piercing this clogging and allowing for drainage into the duodenum once he was able to booth through the clogging an 8 mm balloon was attempted but then a CRE balloon with varying sizes up to a 10 Citizen [place] was used to clean out the metallic stent within the bile duct and he was able to confirm complete clearance of the stent with good emptying through the stent. - GI discussed the case with IR after the ERCP on 03/07 and it was recommended that the internal/external stent needs to be removed at some point in the near future and once the internal/external stent has been removed we will proceed with a repeat ERCP with the intention of either removing this old metallic stent and replacing it with another or just double stenting. - 03/09/18 Pt underwent percutaneous cholangiogram. External portion of biliary drain was removed. Report showed some small hyperplasia within the distal aspect of the biliary stent but there is a patent channel down to the small bowel internal/external drain was removed. - LFTs and renal function improved from admission - IV Rocephin (03/07 - present) - Blood cultures (03/03) --> 2/4 bottles growing E. coli. - Repeat blood cultures (03/11/18) --> No growth x 1 day - anticipate d/c to home with [facility] on 03/14/18 - Dilaudid. [place]. - soft diet - DVT prophylaxis with SCDs (2) Elevated liver enzymes ICD Codes: R74.8 - Abnormal levels of other serum enzymes Status: Acute Plan: - improving from admission. (3) Acute on chronic kidney disease, stage 3 ICD Codes: N18.3 - Acute worsening of stage 3 chronic kidney disease Status: Chronic Plan: - acute on chronic CKD- stage 3 - number improved from admission. Assessment and Plan Patient examined. Assessment and plan formulated with Olga Weiss PA-C. I agree with the above. Olga Weiss Mar 12, 2018 10:57 Alexander Eddy DO Mar 14, 2018 04:39
[2018-03-12 12:17] VITALS: BP 120/59; PULSE 61; RESP 18; TEMP 98; O2SAT 96
[2018-03-12 15:58] VITALS: BP 140/63; PULSE 71; RESP 18; TEMP 98.1; O2SAT 96
[2018-03-12 20:00] VITALS: BP 131/61; PULSE 76; RESP 18; TEMP 99; O2SAT 97
[2018-03-12] MEDS: cefTRIAXone INJ 1,000 MG in SODIUM CHLORIDE 0.9% INJ 100 ML IV SCH (21:43)
[2018-03-13] VITALS: BP 133/61; PULSE 66; RESP 18; TEMP 99.6; O2SAT 98
[2018-03-13] MEDS: ONDANSETRON HCL 4 MG/2 ML VIAL IV PRN ×3 (02:11→19:06)
[2018-03-13] MEDS: ACETAMINOPHEN/HYDROcodone 325 MG/10 MG TAB PO PRN ×6 (03:17→21:27)
[2018-03-13 05:00] VITALS: BP 146/65; PULSE 71; RESP 18; TEMP 98.7; O2SAT 98
[2018-03-13] MEDS: HYDROmorphone HCL PF 2 MG/ML VIAL IV PUSH PRN ×2 (05:18→11:30)
[2018-03-13] MEDS: LIPASE/PROTEASE/AMYLASE (12,000/38,000/60,000) CAP PO SCH ×3 (07:49→16:09)
[2018-03-13] MEDS: METOPROLOL TARTRATE 25 MG TAB PO SCH ×2 (07:49→20:29)
[2018-03-13] MEDS: DILTIAZEM-CD 240 MG CAP ER PO SCH (07:49)
[2018-03-13 08:00] VITALS: BP 138/63; PULSE 73; RESP 16; TEMP 98.4; O2SAT 100
[2018-03-13] MEDS: PANTOPRAZOLE SODIUM 40 MG VIAL IV PUSH SCH (10:04)
[2018-03-13 12:00] VITALS: BP 138/63; PULSE 71; RESP 18; TEMP 98.2; O2SAT 97
[2018-03-13 16:00] VITALS: BP 165/71; PULSE 75; RESP 18; TEMP 98.2; O2SAT 97
[2018-03-13] MEDS ORDERED: 1/2 NS + KCL 20 MEQ INJ 1,000 ML IV SCH (18:00)
--- NOTE | 2018-03-13 18:05 | HHI.PR ---
Subjective Remarks Patient c/o nausea last BM 03/12 no flatus today Objective Vitals Vital Signs Date Time Temp Pulse Resp B/P (MAP) Pulse Ox O2 Delivery O2 Flow Rate FiO2 03/13/18 16:00 98.2 75 18 165/71 (102) 97 03/13/18 14:30 18 03/13/18 12:02 16 03/13/18 12:00 98.2 71 18 138/63 (88) 97 03/13/18 08:00 98.4 73 16 138/63 (88) 100 03/13/18 05:00 98.7 71 18 146/65 (92) 98 03/13/18 00:00 99.6 66 18 133/61 (85) 98 03/12/18 21:15 21 03/12/18 20:00 99.0 76 18 131/61 (84) 97 Result Diagram: 03/09/18 0644 03/09/18 0644 Imaging Last Impressions Cholangiogram 03/09/18 0000 Signed Impressions: Service Date/Time: Friday, March 09, 2018 15:15 - CONCLUSION: 1. Some intimal hyperplasia within the distal aspect of the biliary stent but there is a patent channel down to the small bowel. 2. Internal/external drain was removed. Eliud Lala MD GI Procedure 03/07/18 0000 Signed Impressions: Service Date/Time: Wednesday, March 07, 2018 11:06 - CONCLUSION: ERCP as above. Yunier Santana MD Bile Duct Drainage 03/04/18 0000 Signed Impressions: Service Date/Time: Sunday, March 04, 2018 12:02 - CONCLUSION: 1. Very severe obstruction of the proximal common bile duct stent with very challenging recanalization requiring multiple wires and catheters. 2. Uncomplicated biliary stent placement as above. Plan: Patient may require upsizing of the catheter as only an 8 Pal[place] catheter could be placed. [facility], consideration may be given to extending the stent centrally and distally although sufficient radial strength to allow for stent deployment in the currently obstructed proximal stent is of significant concern. Bhavin Montemayor MD Abdomen X-Ray 03/04/18 0000 Signed Impressions: Service Date/Time: Sunday, March 04, 2018 16:53 - CONCLUSION: No evidence of obstruction. Tube in the jejunum. Jamie Tabor MD FACR Abdomen/Pelvis CT 4/19/18 0820 Signed Impressions: Service Date/Time: February 09:06 - CONCLUSION: 1. Very mild peripancreatic fluid stranding which may represent low-grade pancreatitis. 2. Common bile duct stent noted in place. There is no evidence of intrahepatic biliary duct dilatation. 3. Significant soft tissue fullness in the bret hepatis surrounding the proximal portion of the stent. 4. Status post cholecystectomy. 5. Gastric balloon of the gastrojejunostomy as migrated into the stomach and needs to be pulled back and secured. 6. Degenerative anterolisthesis at L5-S1 with advanced degenerative changes in the lower lumbar spine. 7. Mild airspace disease left base. Baron Shin MD Objective Remarks General: NAD, AAOx3 Chest: CTA Cardiac: Regular Abd: +BS, soft, mildly distended, high pitched tympanic bowel sounds through out Ext: No edema Procedures - ERCP (03/03/18) --> Multiple stones, migrated metal stent up into CBD, could not put plastic stent due to "kink" in current stent according to GI notes - PTC 03/04 by IR -->severe obstruction of the proximal common bile duct stent with very challenging recanalization requiring multiple wires and catheters. biliary stent placement - Repeat ERCP (03/07/18) --> Metallic stent was occluded for the most part with sludge and stones with a noted internal/external stent piercing this clogging and allowing for drainage into the duodenum once he was able to booth through the clogging an 8 mm balloon was attempted but then a CRE balloon with varying sizes up to a 10 Palau[place] was used to clean out the metallic stent within the bile duct and he was able to confirm complete clearance of the stent with good emptying through the stent. - 03/09/18 Pt underwent percutaneous cholangiogram. External portion of biliary drain was removed. Report showed some small hyperplasia within the distal aspect of the biliary stent but there is a patent channel down to the small bowel internal/external drain was removed. A/P Problem List: (1) Pancreatitis, recurrent ICD Codes: K86.1 - Recurrent pancreatitis Status: Acute Plan: Recurrent Idiopathic pancreatitis Abdominal pain Elevated LFTs Biliary obstruction GNR biliary sepsis - Pt is an 82 y/o female with recurrent idiopathic pancreatitis. Pt was evaluated with ERCP was during her last admission on 06/10/17 --> pt had prior sphincterotomy and a metal stent in the bile duct and were able to obtain easy cannulation of the common bile duct but the stent was clogged up with sludge and stones and so using an 8 mm balloon the stent and the distal CBD were cleaned out then was lavaged and then further cleaning was performed and then an obstructive cholangiogram was finally able to clear the common bile duct of all filling defects. - [place] [facility] [place] with complaints of worsening abdominal pain, N/V for the last 2-3 days. She reports that the pain is the same pain that she has had previously with her pancreatitis. - Her labs in the ED revealed WBC count 22, Cr 2.84/BUN 38, TBili 1.8, AST 646, ALT 461, AlkPhos 349. - CT Abd/pelvis (03/03) --> very mild peripancreatic fluid stranding which may represent low-grade pancreatitis, common bile duct stent noted in place, no evidence of intrahepatic biliary duct dilatation, significant soft tissue fullness in the bret hepatis surrounding the proximal portion of the stent, s/ p cholecystectomy, gastric balloon of the gastrojejunostomy as migrated into the stomach and needs to be pulled back and secured, and degenerative anterolisthesis at L5-S1 with advanced degenerative changes in the lower lumbar spine and mild airspace disease left base. - ERCP (03/03/18) --> Multiple stones, migrated metal stent up into CBD, could not put plastic stent due to "kink" in current stent according to GI notes - Pt had PTC 03/04 by IR -->severe obstruction of the proximal common bile duct stent with very challenging recanalization requiring multiple wires and catheters. Uncomplicated biliary stent placement - Repeat ERCP (03/07/18) --> Metallic stent was occluded for the most part with sludge and stones with a noted internal/external stent piercing this clogging and allowing for drainage into the duodenum once he was able to booth through the clogging an 8 mm balloon was attempted but then a CRE balloon with varying sizes up to a 10 [place] was used to clean out the metallic stent within the bile duct and he was able to confirm complete clearance of the stent with good emptying through the stent. - GI discussed the case with IR after the ERCP on 03/07 and it was recommended that the internal/external stent needs to be removed at some point in the near future and once the internal/external stent has been removed we will proceed with a repeat ERCP with the intention of either removing this old metallic stent and replacing it with another or just double stenting. - 03/09/18 Pt underwent percutaneous cholangiogram. External portion of biliary drain was removed. Report showed some small hyperplasia within the distal aspect of the biliary stent but there is a patent channel down to the small bowel internal/external drain was removed. - LFTs and renal function improved from admission - IV Rocephin (03/07 - present) - Blood cultures (03/03) --> 2/4 bottles growing E. coli. - Repeat blood cultures (03/11/18) --> No growth x 1 day - anticipate d/c to home with [facility] on 03/14/18 - Dilaudid. [place]. - soft diet - DVT prophylaxis with SCDs (2) Elevated liver enzymes ICD Codes: R74.8 - Abnormal levels of other serum enzymes Status: Acute Plan: - improving from admission. (3) Acute on chronic kidney disease, stage 3 ICD Codes: N18.3 - Acute worsening of stage 3 chronic kidney disease Status: Chronic Plan: - acute on chronic CKD- stage 3 - number improved from admission. (4) Nausea ICD Codes: R11.0 - Nausea Plan: Patient c/o nausea last BM 03/12 no flatus today abd mildly distended with high pitch tympanic bowel sounds NPO, IVF for hydration KUB if KUB ok consider dose of Relistor DC Dilaudid Assessment and Plan Patient examined. Assessment and plan formulated with Olga Weiss PA-C. I agree with the above. Frequent narcotic use. Pt c/o increased abdominal discomfort today. Pt's abdomen is mildly distended. tympanic on percussion. decreased bowel sounds. KUB (03/14) --> diffuse bowel gas pattern. IVFs, NPO, except meds. Stop dilaudid. Repeat KUB in AM. observe. follow repeat blood cultures. Olga Weiss Mar 13, 2018 18:05 Alexander Eddy DO Mar 14, 2018 04:42
--- NOTE | 2018-03-13 18:36 | RADRPT ---
EXAM DATE/TIME: 03/13/2018 18:09 [facility] COMPARISON: CHOLANGIOGRAM, PERCUTANEOUS, March 04, 2018, 0:00. GI LAB ERCP, March 07, 2018, 11:06. CHOLANGIOGRA M THRU EXISTING CATHETER, March 09, 2018, 15:15. CT ABDOMEN & PELVIS W/O CONTRAST, February 21, 2017, 1 6:42. CHEST SINGLE AP, June 08, 2017, 13:05. MRCP W/O CONTRAST, June 09, 2017, 9:01. ABDOMEN KUB O NLY, February 03, 2017, 11:17. INDICATIONS : Abdominal pain and distention. MEDICAL HISTORY : Hypertension. SURGICAL HISTORY : Cholecystectomy. Peg tube ENCOUNTER: Subsequent ACUITY: 2 weeks PAIN SCORE: 8/10 LOCATION: Bilateral abdomen FINDINGS: Supine view of the abdomen was performed. There is a gastrojejunostomy catheter in place. There is a biliary stent in place. There is an apparent plastic type biliary catheter in the left upper quadrant and similar to recent cholangiogram images. There is a nonobstructive bowel gas pattern. No abnormal calcifications. Osseous structures are intact. CONCLUSION: 1. Gastrojejunostomy catheter in place. 2. Biliary stent in place with apparent plastic type biliary catheter in the left upper quadrant damaris lar to recent cholangiogram images. Uncertain if this represents a displaced catheter. Clinical corre lation is recommended. 3. Nonobstructive bowel gas pattern. Bhavin Montemayor MD on March 13, 2018 at 18:28 Board Certified Radiologist. This report was verified electronically.
[2018-03-13 20:00] VITALS: BP 118/66; PULSE 94; RESP 18; TEMP 99.4; O2SAT 97
[2018-03-13] MEDS: cefTRIAXone INJ 1,000 MG in SODIUM CHLORIDE 0.9% INJ 100 ML IV SCH (20:29)
[2018-03-14] VITALS: BP 142/62; PULSE 70; RESP 16; TEMP 98.6; O2SAT 100
[2018-03-14] MEDS: PANTOPRAZOLE SODIUM 40 MG VIAL IV PUSH SCH ×3 (00:21→23:57)
[2018-03-14] MEDS: ONDANSETRON HCL 4 MG/2 ML VIAL IV PRN ×4 (00:21→21:01)
[2018-03-14] MEDS: ACETAMINOPHEN/HYDROcodone 325 MG/10 MG TAB PO PRN ×5 (04:01→21:03)
[2018-03-14 08:00] VITALS: BP 141/63; PULSE 72; RESP 19; TEMP 98.9; O2SAT 100
[2018-03-14] MEDS: DILTIAZEM-CD 240 MG CAP ER PO SCH (08:30)
[2018-03-14] MEDS: LIPASE/PROTEASE/AMYLASE (12,000/38,000/60,000) CAP PO SCH ×4 (08:30→19:41)
[2018-03-14] MEDS: METOPROLOL TARTRATE 25 MG TAB PO SCH ×2 (08:30→21:01)
--- NOTE | 2018-03-14 09:31 | HHI.PR ---
Subjective Remarks Patient c/o pain right upper and lower quadrant positive flatus today no vomiting Objective Vitals Vital Signs Date Time Temp Pulse Resp B/P (MAP) Pulse Ox O2 Delivery O2 Flow Rate FiO2 03/14/18 00:00 98.6 70 16 142/62 (88) 100 03/13/18 20:00 99.4 94 18 118/66 (83) 97 03/13/18 18:29 16 03/13/18 16:00 98.2 75 18 165/71 (102) 97 03/13/18 12:02 16 03/13/18 12:00 98.2 71 18 138/63 (88) 97 03/14/18 03/14/18 03/15/18 15:00 23:00 07:00 # Voids 1 Imaging Last Impressions Cholangiogram 03/09/18 0000 Signed Impressions: Service Date/Time: Friday, March 09, 2018 15:15 - CONCLUSION: 1. Some intimal hyperplasia within the distal aspect of the biliary stent but there is a patent channel down to the small bowel. 2. Internal/external drain was removed. Eliud Lala MD GI Procedure 03/07/18 0000 Signed Impressions: Service Date/Time: Wednesday, March 07, 2018 11:06 - CONCLUSION: ERCP as above. Yunier Santana MD Bile Duct Drainage 03/04/18 0000 Signed Impressions: Service Date/Time: Sunday, March 04, 2018 12:02 - CONCLUSION: 1. Very severe obstruction of the proximal common bile duct stent with very challenging recanalization requiring multiple wires and catheters. 2. Uncomplicated biliary stent placement as above. Plan: Patient may require upsizing of the catheter as only an 8 Czech catheter could be placed. [employer], consideration may be given to extending the stent centrally and distally although sufficient radial strength to allow for stent deployment in the currently obstructed proximal stent is of significant concern. Bhavin Montemayor MD Abdomen X-Ray 03/04/18 0000 Signed Impressions: Service Date/Time: Sunday, March 04, 2018 16:53 - CONCLUSION: No evidence of obstruction. Tube in the jejunum. Jamie Tabor MD FACR Abdomen/Pelvis CT 03/03/18 0820 Signed Impressions: Service Date/Time: February 09:06 - CONCLUSION: 1. Very mild peripancreatic fluid stranding which may represent low-grade pancreatitis. 2. Common bile duct stent noted in place. There is no evidence of intrahepatic biliary duct dilatation. 3. Significant soft tissue fullness in the bret hepatis surrounding the proximal portion of the stent. 4. Status post cholecystectomy. 5. Gastric balloon of the gastrojejunostomy as migrated into the stomach and needs to be pulled back and secured. 6. Degenerative anterolisthesis at L5-S1 with advanced degenerative changes in the lower lumbar spine. 7. Mild airspace disease left base. Baron hSin MD Objective Remarks General: NAD, AAOx3 Chest: CTA Cardiac: Regular Abd: +BS, soft, tender right upper and lower abd Ext: No edema Procedures - ERCP (03/03/18) --> Multiple stones, migrated metal stent up into CBD, could not put plastic stent due to "kink" in current stent according to GI notes - PTC 03/04 by IR -->severe obstruction of the proximal common bile duct stent with very challenging recanalization requiring multiple wires and catheters. biliary stent placement - Repeat ERCP (03/07/18) --> Metallic stent was occluded for the most part with sludge and stones with a noted internal/external stent piercing this clogging and allowing for drainage into the duodenum once he was able to booth through the clogging an 8 mm balloon was attempted but then a CRE balloon with varying sizes up to a 10 Czech was used to clean out the metallic stent within the bile duct and he was able to confirm complete clearance of the stent with good emptying through the stent. - 03/09/18 Pt underwent percutaneous cholangiogram. External portion of biliary drain was removed. Report showed some small hyperplasia within the distal aspect of the biliary stent but there is a patent channel down to the small bowel internal/external drain was removed. A/P Problem List: (1) Pancreatitis, recurrent ICD Codes: K86.1 - Recurrent pancreatitis Status: Acute Plan: Recurrent Idiopathic pancreatitis Abdominal pain Elevated LFTs Biliary obstruction GNR biliary sepsis - Pt is an 82 y/o female with recurrent idiopathic pancreatitis. Pt was evaluated with ERCP was during her last admission on 06/10/17 --> pt had prior sphincterotomy and a metal stent in the bile duct and were able to obtain easy cannulation of the common bile duct but the stent was clogged up with sludge and stones and so using an 8 mm balloon the stent and the distal CBD were cleaned out then was lavaged and then further cleaning was performed and then an obstructive cholangiogram was finally able to clear the common bile duct of all filling defects. - Pt presented to the ED at [facility] [place] on [place]/03[place]18 with complaints of worsening abdominal pain, N/V for the last 2-3 days. She reports that the pain is the same pain that she has had previously with her pancreatitis. - Her labs in the ED revealed WBC count 22, Cr 2.84/BUN 38, TBili 1.8, AST 646, ALT 461, AlkPhos 349. - CT Abd/pelvis (03/03) --> very mild peripancreatic fluid stranding which may represent low-grade pancreatitis, common bile duct stent noted in place, no evidence of intrahepatic biliary duct dilatation, significant soft tissue fullness in the bret hepatis surrounding the proximal portion of the stent, s/ p cholecystectomy, gastric balloon of the gastrojejunostomy as migrated into the stomach and needs to be pulled back and secured, and degenerative anterolisthesis at L5-S1 with advanced degenerative changes in the lower lumbar spine and mild airspace disease left base. - ERCP (03/03/18) --> Multiple stones, migrated metal stent up into CBD, could not put plastic stent due to "kink" in current stent according to GI notes - Pt had PTC 03/04 by IR -->severe obstruction of the proximal common bile duct stent with very challenging recanalization requiring multiple wires and catheters. Uncomplicated biliary stent placement - Repeat ERCP (03/07/18) --> Metallic stent was occluded for the most part with sludge and stones with a noted internal/external stent piercing this clogging and allowing for drainage into the duodenum once he was able to booth through the clogging an 8 mm balloon was attempted but then a CRE balloon with varying sizes up to a 10 Czech was used to clean out the metallic stent within the bile duct and he was able to confirm complete clearance of the stent with good emptying through the stent. - GI discussed the case with IR after the ERCP on 03/07 and it was recommended that the internal/external stent needs to be removed at some point in the near future and once the internal/external stent has been removed we will proceed with a repeat ERCP with the intention of either removing this old metallic stent and replacing it with another or just double stenting. - 03/09/18 Pt underwent percutaneous cholangiogram. External portion of biliary drain was removed. Report showed some small hyperplasia within the distal aspect of the biliary stent but there is a patent channel down to the small bowel internal/external drain was removed. - LFTs and renal function improved from admission - IV Rocephin (03/07 - present) - Blood cultures (03/03) --> 2/4 bottles growing E. coli. - Repeat blood cultures (03/11/18) --> No growth x 1 day - anticipate d/c to home with [facility] on 03/14/18 - Dilaudid. [place]. - soft diet - DVT prophylaxis with SCDs (2) Elevated liver enzymes ICD Codes: R74.8 - Abnormal levels of other serum enzymes Status: Acute Plan: - improving from admission. (3) Acute on chronic kidney disease, stage 3 ICD Codes: N18.3 - Acute worsening of stage 3 chronic kidney disease Status: Chronic Plan: - acute on chronic CKD- stage 3 - number improved from admission. (4) Nausea ICD Codes: R11.0 - Nausea Plan: Patient c/o nausea last BM 03/12 03/13 abd mildly distended with high pitch tympanic bowel sounds NPO, IVF for hydration KUB: Gastrojejunostomy catheter in place. Biliary stent in place with apparent plastic type biliary catheter in place with apparent plastic type catheter in the left upper quadrant similar to recent cholangiogram images. Incertain if this represents a displaced catheter. Nonobstructive bowel gas pattern. DC Dilaudid Assessment and Plan Patient examined. Assessment and plan formulated with Olga Weiss PA-C. I agree with the above. still with some abdomen pain. biliary ducts open and lft normalizing. has been on rocephin x 12 days for biliary sepsis. no bm. laxatives being given. wbc back up to 26k?source. if bm then send for cdiff. repeat blood cx ngtd. try to keep lowering pain meds. Olga Weiss Mar 14, 2018 09:31 Bryan Quezada MD Mar 14, 2018 18:08
[2018-03-14] MEDS ORDERED: BISACODYL 10 MG SUPP RECTAL ONE (10:00)
[2018-03-14] MEDS ORDERED: MAGNESIUM HYDROXIDE SUSP 30 ML CUP PO ONE (10:00)
--- NOTE | 2018-03-14 10:48 | RADRPT ---
EXAM DATE/TIME: 03/14/2018 10:29 [facility] COMPARISON: BILIARY DRAINAGE W STENT PLACE, March 04, 2018, 12:02. ABDOMEN SINGLE VIEW, March 04, 2018, 16:53. ABDOMEN KUB ONLY, March 13, 2018, 18:09. INDICATIONS : Abdominal pain, nausea and vomiting. Evaluate for ileus MEDICAL HISTORY : Pancreatitis. Gastroesophageal reflux disease. SURGICAL HISTORY : Cholecystectomy. Biliary stent, gastrojejunostomy tube ENCOUNTER: Subsequent ACUITY: 2 weeks PAIN SCORE: 5/10 LOCATION: Bilateral abdomen FINDINGS: Biliary stent in place. Percutaneous enterostomy tube similar in position. A displaced plastic tube is stable in location, inferior and lateral to the biliary stent, stable in position from prior KUB. No dilated loop of small or large bowel. Linear atelectasis or scarring obliquely in the lower lef t lung. CONCLUSION: No dilated loops of small or large bowel. Stephan Crawford MD on March 14, 2018 at 10:43 Board Certified Radiologist. This report was verified electronically.
[2018-03-14 11:14] LABS: BASOPHIL # 0.1 TH/MM3 (0-0.2); BASOPHIL % 0.3 % (0.0-2.0); EOSINOPHIL # 0.1 TH/MM3 (0-0.4); EOSINOPHIL % 0.2 % (0.0-4.0); HEMOGLOBIN 10.7 GM/DL (11.6-15.3); LYMPH % 5.2 % (9.0-44.0); LYMPHOCYTE # 1.4 TH/MM3 (1.0-4.8); MEAN CELL VOLUME 86.9 FL (80.0-100.0); MEAN CORPUSCULAR HEMOGLOBIN 28.1 PG (27.0-34.0); MEAN CORPUSCULAR HGB CONC 32.4 % (32.0-36.0); MEAN PLATELET VOLUME 8.8 FL (7.0-11.0); MONO % 3.2 % (0.0-8.0); MONOCYTE # 0.9 TH/MM3 (0-0.9); NEUT % 91.1 % (16.0-70.0); PLATELET COUNT 437 TH/MM3 (150-450); RED CELL DISTRIBUTION WIDTH 13.5 % (11.6-17.2); WHITE BLOOD COUNT 26.4 TH/MM3 (4.0-11.0)
[2018-03-14 11:37] LABS: BICARBONATE 20.8 MEQ/L (21.0-32.0); CALCIUM 8.9 MG/DL (8.5-10.1); CREATININE 2.14 MG/DL (0.50-1.00)
[2018-03-14 12:00] VITALS: BP 149/68; PULSE 72; RESP 21; TEMP 98.9; O2SAT 100
[2018-03-14 13:03] LABS: ALBUMIN 2.3 GM/DL (3.4-5.0); DIRECT BILIRUBIN ADULT 0.1 MG/DL (0.0-0.2)
[2018-03-14 13:05] LABS: INDIRECT BILIRUBIN 0.2 MG/DL (0.0-0.8); TOTAL BILIRUBIN ADULT 0.3 MG/DL (0.2-1.0); TOTAL PROTEIN 7.6 GM/DL (6.4-8.2)
[2018-03-14 16:00] VITALS: BP 151/68; PULSE 79; RESP 20; TEMP 98.8; O2SAT 98
[2018-03-14] MEDS: cefTRIAXone INJ 1,000 MG in SODIUM CHLORIDE 0.9% INJ 100 ML IV SCH (21:01)
[2018-03-14 21:15] VITALS: BP 145/72; PULSE 76; RESP 16; TEMP 98.5; O2SAT 98
[2018-03-15] VITALS: BP 139/79; PULSE 75; RESP 17; TEMP 97.9; O2SAT 97
[2018-03-15] MEDS: ACETAMINOPHEN/HYDROcodone 325 MG/10 MG TAB PO PRN ×6 (00:34→23:12)
[2018-03-15] MEDS ORDERED: HYDROmorphone HCL PF 0.5 MG/0.5 ML SYRINGE IV SCH (03:45)
[2018-03-15 05:15] VITALS: BP 130/69; PULSE 68; RESP 19; TEMP 98; O2SAT 99
[2018-03-15 07:57] LABS: BASOPHIL # 0.1 TH/MM3 (0-0.2); BASOPHIL % 0.4 % (0.0-2.0); EOSINOPHIL # 0.1 TH/MM3 (0-0.4); EOSINOPHIL % 0.3 % (0.0-4.0); HEMATOCRIT 32.6 % (35.0-46.0); HEMOGLOBIN 10.6 GM/DL (11.6-15.3); LYMPH % 3.4 % (9.0-44.0); LYMPHOCYTE # 0.9 TH/MM3 (1.0-4.8); MEAN CELL VOLUME 86.4 FL (80.0-100.0); MEAN CORPUSCULAR HEMOGLOBIN 28.1 PG (27.0-34.0); MEAN CORPUSCULAR HGB CONC 32.5 % (32.0-36.0); MEAN PLATELET VOLUME 9.5 FL (7.0-11.0); MONO % 4.8 % (0.0-8.0); MONOCYTE # 1.2 TH/MM3 (0-0.9); NEUT % 91.1 % (16.0-70.0); PLATELET COUNT 420 TH/MM3 (150-450); RED BLOOD COUNT 3.77 MIL/MM3 (4.00-5.30); RED CELL DISTRIBUTION WIDTH 13.8 % (11.6-17.2); WHITE BLOOD COUNT 25.3 TH/MM3 (4.0-11.0)
[2018-03-15 08:00] VITALS: BP 155/72; PULSE 81; RESP 18; TEMP 99; O2SAT 99
[2018-03-15] MEDS: DILTIAZEM-CD 240 MG CAP ER PO SCH (08:11)
[2018-03-15] MEDS: PANTOPRAZOLE SODIUM 40 MG VIAL IV PUSH SCH ×2 (08:11→22:31)
[2018-03-15] MEDS: METOPROLOL TARTRATE 25 MG TAB PO SCH ×2 (08:11→21:05)
[2018-03-15] MEDS: LIPASE/PROTEASE/AMYLASE (12,000/38,000/60,000) CAP PO SCH ×3 (08:11→17:47)
[2018-03-15] MEDS: ONDANSETRON HCL 4 MG/2 ML VIAL IV PRN ×2 (08:11→21:05)
[2018-03-15 08:19] LABS: ALBUMIN 2.3 GM/DL (3.4-5.0); ALKALINE PHOSPHATASE 170 U/L (45-117); ALT (GPT) 17 U/L (10-53); AST (GOT) 15 U/L (15-37); BICARBONATE 21.9 MEQ/L (21.0-32.0); BLOOD UREA NITROGEN 19 MG/DL (7-18); CALCIUM 9.1 MG/DL (8.5-10.1); CHLORIDE 106 MEQ/L (98-107); GLOMERULAR FILTRATION RATE 27 ML/MIN (>89); GLUCOSE,RANDOM 117 MG/DL (74-106); SODIUM (NA) 139 MEQ/L (136-145); TOTAL BILIRUBIN ADULT 0.3 MG/DL (0.2-1.0); TOTAL PROTEIN 7.6 GM/DL (6.4-8.2)
--- NOTE | 2018-03-15 11:47 | HHI.PR ---
Subjective Remarks Patient c/o pain RUQ. Unable to elaborate other than, "it hurts." Patient report feeling a little better after BM and also endorses that she feels better than when she came in Objective Vitals Vital Signs Date Time Temp Pulse Resp B/P (MAP) Pulse Ox O2 Delivery O2 Flow Rate FiO2 03/15/18 08:00 99.0 81 18 155/72 (99) 99 03/15/18 05:15 98.0 68 19 130/69 (89) 99 03/15/18 00:00 97.9 75 17 139/79 (99) 97 03/14/18 21:15 98.5 76 16 145/72 (96) 98 03/14/18 16:00 98.8 79 20 151/68 (95) 98 03/14/18 12:00 98.9 72 21 149/68 (95) 100 Result Diagram: 03/15/18 0711 03/15/18 0711 Imaging Last Impressions Cholangiogram 03/09/18 0000 Signed Impressions: Service Date/Time: Friday, March 09, 2018 15:15 - CONCLUSION: 1. Some intimal hyperplasia within the distal aspect of the biliary stent but there is a patent channel down to the small bowel. 2. Internal/external drain was removed. Eliud Lala MD GI Procedure 03/07/18 0000 Signed Impressions: Service Date/Time: Wednesday, March 07, 2018 11:06 - CONCLUSION: ERCP as above. Yunier Santana MD Bile Duct Drainage 03/04/18 0000 Signed Impressions: Service Date/Time: Sunday, March 04, 2018 12:02 - CONCLUSION: 1. Very severe obstruction of the proximal common bile duct stent with very challenging recanalization requiring multiple wires and catheters. 2. Uncomplicated biliary stent placement as above. Plan: Patient may require upsizing of the catheter as only an 8 [place]ar[place] catheter could be placed. MCC, consideration may be given to extending the stent centrally and distally although sufficient radial strength to allow for stent deployment in the currently obstructed proximal stent is of significant concern. Bhavin Montemayor MD Abdomen X-Ray 03/04/18 0000 Signed Impressions: Service Date/Time: Sunday, March 04, 2018 16:53 - CONCLUSION: No evidence of obstruction. Tube in the jejunum. Jamie Tabor MD FACR Abdomen/Pelvis CT 03/03/18 0820 Signed Impressions: Service Date/Time: February 09:06 - CONCLUSION: 1. Very mild peripancreatic fluid stranding which may represent low-grade pancreatitis. 2. Common bile duct stent noted in place. There is no evidence of intrahepatic biliary duct dilatation. 3. Significant soft tissue fullness in the bret hepatis surrounding the proximal portion of the stent. 4. Status post cholecystectomy. 5. Gastric balloon of the gastrojejunostomy as migrated into the stomach and needs to be pulled back and secured. 6. Degenerative anterolisthesis at L5-S1 with advanced degenerative changes in the lower lumbar spine. 7. Mild airspace disease left base. Baron Shin MD Objective Remarks General: NAD, AAOx3 Chest: CTA Cardiac: Regular Abd: +BS, soft, tender right upper and lower abd Ext: No edema Procedures - ERCP (03/03/18) --> Multiple stones, migrated metal stent up into CBD, could not put plastic stent due to "kink" in current stent according to GI notes - PTC 03/04 by IR -->severe obstruction of the proximal common bile duct stent with very challenging recanalization requiring multiple wires and catheters. biliary stent placement - Repeat ERCP (03/07/18) --> Metallic stent was occluded for the most part with sludge and stones with a noted internal/external stent piercing this clogging and allowing for drainage into the duodenum once he was able to booth through the clogging an 8 mm balloon was attempted but then a CRE balloon with varying sizes up to a 10 Nicar[place]uan was used to clean out the metallic stent within the bile duct and he was able to confirm complete clearance of the stent with good emptying through the stent. - 03/09/18 Pt underwent percutaneous cholangiogram. External portion of biliary drain was removed. Report showed some small hyperplasia within the distal aspect of the biliary stent but there is a patent channel down to the small bowel internal/external drain was removed. A/P Problem List: (1) Pancreatitis, recurrent ICD Codes: K86.1 - Recurrent pancreatitis Status: Acute Plan: Recurrent Idiopathic pancreatitis Abdominal pain Elevated LFTs Biliary obstruction GNR biliary sepsis - Pt is an 82 y/o female with recurrent idiopathic pancreatitis. Pt was evaluated with ERCP was during her last admission on 06/10/17 --> pt had prior sphincterotomy and a metal stent in the bile duct and were able to obtain easy cannulation of the common bile duct but the stent was clogged up with sludge and stones and so using an 8 mm balloon the stent and the distal CBD were cleaned out then was lavaged and then further cleaning was performed and then an obstructive cholangiogram was finally able to clear the common bile duct of all filling defects. - Pt presented to the ED at [facility] [place] on 03/03/18 with complaints of worsening abdominal pain, N/V for the last 2-3 days. She reports that the pain is the same pain that she has had previously with her pancreatitis. - Her labs in the ED revealed WBC count 22, Cr 2.84/BUN 38, TBili 1.8, AST 646, ALT 461, AlkPhos 349. - CT Abd/pelvis (03/03) --> very mild peripancreatic fluid stranding which may represent low-grade pancreatitis, common bile duct stent noted in place, no evidence of intrahepatic biliary duct dilatation, significant soft tissue fullness in the bret hepatis surrounding the proximal portion of the stent, s/ p cholecystectomy, gastric balloon of the gastrojejunostomy as migrated into the stomach and needs to be pulled back and secured, and degenerative anterolisthesis at L5-S1 with advanced degenerative changes in the lower lumbar spine and mild airspace disease left base. - ERCP (03/03/18) --> Multiple stones, migrated metal stent up into CBD, could not put plastic stent due to "kink" in current stent according to GI notes - Pt had PTC 03/04 by IR -->severe obstruction of the proximal common bile duct stent with very challenging recanalization requiring multiple wires and catheters. Uncomplicated biliary stent placement - Repeat ERCP (03/07/18) --> Metallic stent was occluded for the most part with sludge and stones with a noted internal/external stent piercing this clogging and allowing for drainage into the duodenum once he was able to booth through the clogging an 8 mm balloon was attempted but then a CRE balloon with varying sizes up to a 10 [place]ar[place]uan was used to clean out the metallic stent within the bile duct and he was able to confirm complete clearance of the stent with good emptying through the stent. - GI discussed the case with IR after the ERCP on 03/07 and it was recommended that the internal/external stent needs to be removed at some point in the near future and once the internal/external stent has been removed we will proceed with a repeat ERCP with the intention of either removing this old metallic stent and replacing it with another or just double stenting. - 03/09/18 Pt underwent percutaneous cholangiogram. External portion of biliary drain was removed. Report showed some small hyperplasia within the distal aspect of the biliary stent but there is a patent channel down to the small bowel internal/external drain was removed. - LFTs and renal function improved from admission - IV Rocephin (03/07 - present) - Blood cultures (03/03) --> 2/4 bottles growing E. coli. - Repeat blood cultures (03/11/18) --> No growth x 4 day - DC Dilaudid. Continue [place] as needed for pain - soft diet - DVT prophylaxis with SCDs 03/15/18 Patient still c/o of some abdomen pain. biliary ducts open and lft normalizing. has been on rocephin x 12 days for biliary sepsis. + bm. after laxatives being given. WBC 26.4 (03/14) -> 25.3 (03/15) ? source concerned for C diff sample pending (2) Elevated liver enzymes ICD Codes: R74.8 - Abnormal levels of other serum enzymes Status: Acute Plan: - improving from admission. (3) Acute on chronic kidney disease, stage 3 ICD Codes: N18.3 - Acute worsening of stage 3 chronic kidney disease Status: Chronic Plan: - acute on chronic CKD- stage 3 - number improved from admission. (4) Nausea ICD Codes: R11.0 - Nausea Plan: Patient c/o nausea- improving after BM last BM 03/15 03/13 abd mildly distended with high pitch tympanic bowel sounds KUB: Gastrojejunostomy catheter in place. Biliary stent in place with apparent plastic type biliary catheter in place with apparent plastic type catheter in the left upper quadrant similar to recent cholangiogram images. Incertain if this represents a displaced catheter. Nonobstructive bowel gas pattern. DC Dilaudid Assessment and Plan Patient examined. Assessment and plan formulated with Olga Weiss PA-C. I agree with the above. Olga Weiss March 15, 2018 11:47 Bryan Quezada MD March 15, 2018 15:46
[2018-03-15 11:57] VITALS: BP 141/73; PULSE 79; RESP 18; TEMP 99.7; O2SAT 100
[2018-03-15 16:00] VITALS: BP 162/76; PULSE 76; RESP 18; TEMP 98.5; O2SAT 97
[2018-03-15] MEDS: SIMETHICONE 125 MG CHEWABLE TAB PO SCH ×2 (17:47→21:04)
[2018-03-15 20:45] VITALS: BP 170/70; PULSE 92; RESP 18; TEMP 99.3; O2SAT 97
[2018-03-15] MEDS: cefTRIAXone INJ 1,000 MG in SODIUM CHLORIDE 0.9% INJ 100 ML IV SCH (21:06)
[2018-03-16 00:30] VITALS: BP 140/69; PULSE 89; RESP 17; TEMP 98.9; O2SAT 98
[2018-03-16] MEDS: ACETAMINOPHEN/HYDROcodone 325 MG/10 MG TAB PO PRN ×6 (03:12→21:52)
[2018-03-16 05:30] VITALS: BP 157/80; PULSE 83; RESP 18; TEMP 97.5; O2SAT 97
[2018-03-16] MEDS: SIMETHICONE 125 MG CHEWABLE TAB PO SCH ×3 (06:27→21:52)
[2018-03-16 07:38] VITALS: BP 159/73; PULSE 73; RESP 18; TEMP 98.9; O2SAT 99
[2018-03-16] MEDS: DILTIAZEM-CD 240 MG CAP ER PO SCH (09:27)
[2018-03-16] MEDS: METOPROLOL TARTRATE 25 MG TAB PO SCH ×2 (09:27→21:52)
[2018-03-16] MEDS: LIPASE/PROTEASE/AMYLASE (12,000/38,000/60,000) CAP PO SCH ×3 (09:29→18:08)
[2018-03-16 11:02] LABS: AUTOMATED NEUTROPHIL # 15.9 TH/MM3 (1.8-7.7); BASOPHIL # 0.1 TH/MM3 (0-0.2); BASOPHIL % 0.5 % (0.0-2.0); EOSINOPHIL # 0.1 TH/MM3 (0-0.4); EOSINOPHIL % 0.8 % (0.0-4.0); HEMATOCRIT 33.8 % (35.0-46.0); HEMOGLOBIN 11.1 GM/DL (11.6-15.3); LYMPH % 6.7 % (9.0-44.0); LYMPHOCYTE # 1.2 TH/MM3 (1.0-4.8); MEAN CELL VOLUME 86.3 FL (80.0-100.0); MEAN CORPUSCULAR HEMOGLOBIN 28.4 PG (27.0-34.0); MONO % 4.5 % (0.0-8.0); MONOCYTE # 0.8 TH/MM3 (0-0.9); NEUT % 87.5 % (16.0-70.0); PLATELET COUNT 470 TH/MM3 (150-450); RED BLOOD COUNT 3.91 MIL/MM3 (4.00-5.30); RED CELL DISTRIBUTION WIDTH 13.7 % (11.6-17.2); WHITE BLOOD COUNT 18.1 TH/MM3 (4.0-11.0)
[2018-03-16] MEDS: PANTOPRAZOLE SODIUM 40 MG VIAL IV PUSH SCH ×2 (11:34→21:52)
--- NOTE | 2018-03-16 11:39 | HHI.PR ---
Subjective Remarks better today. Objective Vitals heart reg lung cta abd mild tenderness.bs ext no edema Vital Signs Date Time Temp Pulse Resp B/P (MAP) Pulse Ox O2 Delivery O2 Flow Rate FiO2 03/16/18 07:38 98.9 73 18 159/73 (101) 99 03/16/18 05:30 97.5 83 18 157/80 (105) 97 03/16/18 00:30 98.9 89 17 140/69 (92) 98 03/15/18 20:45 99.3 92 18 170/70 (103) 97 03/15/18 16:00 98.5 76 18 162/76 (104) 97 03/15/18 11:57 99.7 79 18 141/73 (95) 100 Result Diagram: 03/16/18 1005 03/15/18 0711 Imaging Last Impressions Cholangiogram 03/09/18 0000 Signed Impressions: Service Date/Time: Friday, March 09, 2018 15:15 - CONCLUSION: 1. Some intimal hyperplasia within the distal aspect of the biliary stent but there is a patent channel down to the small bowel. 2. Internal/external drain was removed. Eliud Lala MD GI Procedure 03/07/18 0000 Signed Impressions: Service Date/Time: Wednesday, March 07, 2018 11:06 - CONCLUSION: ERCP as above. Yunier Santana MD Bile Duct Drainage 03/04/18 0000 Signed Impressions: Service Date/Time: Sunday, March 04, 2018 12:02 - CONCLUSION: 1. Very severe obstruction of the proximal common bile duct stent with very challenging recanalization requiring multiple wires and catheters. 2. Uncomplicated biliary stent placement as above. Plan: Patient may require upsizing of the catheter as only an 8 British catheter could be placed. medical terminologist, consideration may be given to extending the stent centrally and distally although sufficient radial strength to allow for stent deployment in the currently obstructed proximal stent is of significant concern. Bhavin Montemayor MD Abdomen X-Ray 03/04/18 0000 Signed Impressions: Service Date/Time: Sunday, March 04, 2018 16:53 - CONCLUSION: No evidence of obstruction. Tube in the jejunum. Jamie Tabor MD FACR Abdomen/Pelvis CT 03/03/18 0820 Signed Impressions: Service Date/Time: February 09:06 - CONCLUSION: 1. Very mild peripancreatic fluid stranding which may represent low-grade pancreatitis. 2. Common bile duct stent noted in place. There is no evidence of intrahepatic biliary duct dilatation. 3. Significant soft tissue fullness in the bret hepatis surrounding the proximal portion of the stent. 4. Status post cholecystectomy. 5. Gastric balloon of the gastrojejunostomy as migrated into the stomach and needs to be pulled back and secured. 6. Degenerative anterolisthesis at L5-S1 with advanced degenerative changes in the lower lumbar spine. 7. Mild airspace disease left base. Baron Shin MD Procedures - ERCP (03/03/18) --> Multiple stones, migrated metal stent up into CBD, could not put plastic stent due to "kink" in current stent according to GI notes - PTC 03/04 by IR -->severe obstruction of the proximal common bile duct stent with very challenging recanalization requiring multiple wires and catheters. biliary stent placement - Repeat ERCP (03/07/18) --> Metallic stent was occluded for the most part with sludge and stones with a noted internal/external stent piercing this clogging and allowing for drainage into the duodenum once he was able to booth through the clogging an 8 mm balloon was attempted but then a CRE balloon with varying sizes up to a 10 British was used to clean out the metallic stent within the bile duct and he was able to confirm complete clearance of the stent with good emptying through the stent. - 03/09/18 Pt underwent percutaneous cholangiogram. External portion of biliary drain was removed. Report showed some small hyperplasia within the distal aspect of the biliary stent but there is a patent channel down to the small bowel internal/external drain was removed. A/P Problem List: (1) Pancreatitis, recurrent ICD Codes: K86.1 - Recurrent pancreatitis Status: Acute Plan: Recurrent Idiopathic pancreatitis Abdominal pain Elevated LFTs Biliary obstruction GNR biliary sepsis - Pt is an 82 y/o female with recurrent idiopathic pancreatitis. Pt was evaluated with ERCP was during her last admission on 06/10/17 --> pt had prior sphincterotomy and a metal stent in the bile duct and were able to obtain easy cannulation of the common bile duct but the stent was clogged up with sludge and stones and so using an 8 mm balloon the stent and the distal CBD were cleaned out then was lavaged and then further cleaning was performed and then an obstructive cholangiogram was finally able to clear the common bile duct of all filling defects. - Pt presented to the ED at [facility] on 03/03/18 with complaints of worsening abdominal pain, N/V for the last 2-3 days. She reports that the pain is the same pain that she has had previously with her pancreatitis. - Her labs in the ED revealed WBC count 22, Cr 2.84/BUN 38, TBili 1.8, AST 646, ALT 461, AlkPhos 349. - CT Abd/pelvis (03/03) --> very mild peripancreatic fluid stranding which may represent low-grade pancreatitis, common bile duct stent noted in place, no evidence of intrahepatic biliary duct dilatation, significant soft tissue fullness in the bret hepatis surrounding the proximal portion of the stent, s/ p cholecystectomy, gastric balloon of the gastrojejunostomy as migrated into the stomach and needs to be pulled back and secured, and degenerative anterolisthesis at L5-S1 with advanced degenerative changes in the lower lumbar spine and mild airspace disease left base. - ERCP (03/03/18) --> Multiple stones, migrated metal stent up into CBD, could not put plastic stent due to "kink" in current stent according to GI notes - Pt had PTC 03/04 by IR -->severe obstruction of the proximal common bile duct stent with very challenging recanalization requiring multiple wires and catheters. Uncomplicated biliary stent placement - Repeat ERCP (03/07/18) --> Metallic stent was occluded for the most part with sludge and stones with a noted internal/external stent piercing this clogging and allowing for drainage into the duodenum once he was able to booth through the clogging an 8 mm balloon was attempted but then a CRE balloon with varying sizes up to a 10 British was used to clean out the metallic stent within the bile duct and he was able to confirm complete clearance of the stent with good emptying through the stent. - GI discussed the case with IR after the ERCP on 03/07 and it was recommended that the internal/external stent needs to be removed at some point in the near future and once the internal/external stent has been removed we will proceed with a repeat ERCP with the intention of either removing this old metallic stent and replacing it with another or just double stenting. - 03/09/18 Pt underwent percutaneous cholangiogram. External portion of biliary drain was removed. Report showed some small hyperplasia within the distal aspect of the biliary stent but there is a patent channel down to the small bowel internal/external drain was removed. - LFTs and renal function improved from admission - IV Rocephin (03/07 - present) - Blood cultures (03/03) --> 2/4 bottles growing E. coli. - Repeat blood cultures (03/11/18) --> No growth x 4 day - DC Dilaudid. Continue [place] as needed for pain - soft diet - DVT prophylaxis with SCDs abdomen pain improving. wbc trending down. lipase mild elevation. I think the elevated wbc and abdomen pain over past several days was pancreatitis related if doing well then dc tomorrow. (2) Elevated liver enzymes ICD Codes: R74.8 - Abnormal levels of other serum enzymes Status: Acute Plan: - improving from admission. (3) Acute on chronic kidney disease, stage 3 ICD Codes: N18.3 - Acute worsening of stage 3 chronic kidney disease Status: Chronic Plan: - acute on chronic CKD- stage 3 - number improved from admission. (4) Nausea ICD Codes: R11.0 - Nausea Plan: Patient c/o nausea- improving after BM last BM 03/15 03/13 abd mildly distended with high pitch tympanic bowel sounds KUB: Gastrojejunostomy catheter in place. Biliary stent in place with apparent plastic type biliary catheter in place with apparent plastic type catheter in the left upper quadrant similar to recent cholangiogram images. Incertain if this represents a displaced catheter. Nonobstructive bowel gas pattern. DC Dilaudid Bryan Quezada MD March 16, 2018 11:39
[2018-03-16 11:50] VITALS: BP 153/72; PULSE 67; RESP 18; TEMP 98.5; O2SAT 100
[2018-03-16 16:01] VITALS: BP 165/73; PULSE 73; RESP 18; TEMP 98.4; O2SAT 100
[2018-03-16] MEDS: ONDANSETRON HCL 4 MG/2 ML VIAL IV PRN (18:11)
[2018-03-16 20:00] VITALS: BP 117/68; PULSE 86; RESP 20; TEMP 98.8; O2SAT 99
[2018-03-16] MEDS: cefTRIAXone INJ 1,000 MG in SODIUM CHLORIDE 0.9% INJ 100 ML IV SCH (21:53)
[2018-03-17] VITALS: BP 159/75; PULSE 88; RESP 18; TEMP 98.5; O2SAT 99
[2018-03-17] MEDS: ACETAMINOPHEN/HYDROcodone 325 MG/10 MG TAB PO PRN ×6 (01:54→21:16)
[2018-03-17] MEDS: SIMETHICONE 125 MG CHEWABLE TAB PO SCH ×3 (05:39→21:15)
[2018-03-17 05:48] VITALS: BP 174/79; PULSE 87; RESP 18; TEMP 98.2; O2SAT 100
[2018-03-17 07:32] VITALS: BP 168/77; PULSE 86; RESP 18; TEMP 98.6; O2SAT 99
[2018-03-17] MEDS: DILTIAZEM-CD 240 MG CAP ER PO SCH (07:59)
[2018-03-17] MEDS: LIPASE/PROTEASE/AMYLASE (12,000/38,000/60,000) CAP PO SCH ×3 (07:59→17:26)
[2018-03-17] MEDS: METOPROLOL TARTRATE 25 MG TAB PO SCH ×2 (08:00→21:15)
[2018-03-17 09:47] LABS: AUTOMATED NEUTROPHIL # 16.3 TH/MM3 (1.8-7.7); BASOPHIL # 0.1 TH/MM3 (0-0.2); BASOPHIL % 0.6 % (0.0-2.0); EOSINOPHIL # 0.3 TH/MM3 (0-0.4); EOSINOPHIL % 1.4 % (0.0-4.0); HEMATOCRIT 31.9 % (35.0-46.0); HEMOGLOBIN 10.4 GM/DL (11.6-15.3); LYMPH % 5.3 % (9.0-44.0); MEAN CELL VOLUME 86.2 FL (80.0-100.0); MEAN CORPUSCULAR HEMOGLOBIN 28.1 PG (27.0-34.0); MEAN CORPUSCULAR HGB CONC 32.6 % (32.0-36.0); MEAN PLATELET VOLUME 8.9 FL (7.0-11.0); MONO % 5.5 % (0.0-8.0); NEUT % 87.2 % (16.0-70.0); PLATELET COUNT 468 TH/MM3 (150-450); RED CELL DISTRIBUTION WIDTH 13.7 % (11.6-17.2); WHITE BLOOD COUNT 18.7 TH/MM3 (4.0-11.0)
[2018-03-17 11:35] VITALS: BP 167/77; PULSE 73; RESP 19; TEMP 98.6; O2SAT 100
[2018-03-17] MEDS: PANTOPRAZOLE SODIUM 40 MG VIAL IV PUSH SCH ×2 (11:40→23:28)
--- NOTE | 2018-03-17 12:28 | HHI.PR ---
Subjective Remarks on bedside commode looks comfortable. describes some persistent abdomen pain. Objective Vitals nad heart reg lung cta abd s/nt ext no edema Vital Signs Date Time Temp Pulse Resp B/P (MAP) Pulse Ox O2 Delivery O2 Flow Rate FiO2 03/17/18 11:35 98.6 73 19 167/77 (107) 100 03/17/18 07:32 98.6 86 18 168/77 (107) 99 03/17/18 05:48 98.2 87 18 174/79 (110) 100 03/17/18 00:00 98.5 88 18 159/75 (103) 99 03/16/18 20:00 98.8 86 20 117/68 (84) 99 03/16/18 16:01 98.4 73 18 165/73 (103) 100 Result Diagram: 03/17/18 0635 03/15/18 0711 Imaging Last Impressions Cholangiogram 03/09/18 0000 Signed Impressions: Service Date/Time: Friday, March 09, 2018 15:15 - CONCLUSION: 1. Some intimal hyperplasia within the distal aspect of the biliary stent but there is a patent channel down to the small bowel. 2. Internal/external drain was removed. Eliud Lala MD GI Procedure 03/07/18 0000 Signed Impressions: Service Date/Time: Wednesday, March 07, 2018 11:06 - CONCLUSION: ERCP as above. Yunier Santana MD Bile Duct Drainage 03/04/18 0000 Signed Impressions: Service Date/Time: Sunday, March 04, 2018 12:02 - CONCLUSION: 1. Very severe obstruction of the proximal common bile duct stent with very challenging recanalization requiring multiple wires and catheters. 2. Uncomplicated biliary stent placement as above. Plan: Patient may require upsizing of the catheter as only an 8 [place] catheter could be placed. MCC, consideration may be given to extending the stent centrally and distally although sufficient radial strength to allow for stent deployment in the currently obstructed proximal stent is of significant concern. Bhavin Montemayor MD Abdomen X-Ray 03/04/18 0000 Signed Impressions: Service Date/Time: Sunday, March 04, 2018 16:53 - CONCLUSION: No evidence of obstruction. Tube in the jejunum. Jamie Tabor MD FACR Abdomen/Pelvis CT 03/03/18 0820 Signed Impressions: Service Date/Time: February 09:06 - CONCLUSION: 1. Very mild peripancreatic fluid stranding which may represent low-grade pancreatitis. 2. Common bile duct stent noted in place. There is no evidence of intrahepatic biliary duct dilatation. 3. Significant soft tissue fullness in the bret hepatis surrounding the proximal portion of the stent. 4. Status post cholecystectomy. 5. Gastric balloon of the gastrojejunostomy as migrated into the stomach and needs to be pulled back and secured. 6. Degenerative anterolisthesis at L5-S1 with advanced degenerative changes in the lower lumbar spine. 7. Mild airspace disease left base. Baron Shin MD Procedures - ERCP (03/03/18) --> Multiple stones, migrated metal stent up into CBD, could not put plastic stent due to "kink" in current stent according to GI notes - PTC 03/04 by IR -->severe obstruction of the proximal common bile duct stent with very challenging recanalization requiring multiple wires and catheters. biliary stent placement - Repeat ERCP (03/07/18) --> Metallic stent was occluded for the most part with sludge and stones with a noted internal/external stent piercing this clogging and allowing for drainage into the duodenum once he was able to booth through the clogging an 8 mm balloon was attempted but then a CRE balloon with varying sizes up to a 10 [place] was used to clean out the metallic stent within the bile duct and he was able to confirm complete clearance of the stent with good emptying through the stent. - 03/09/18 Pt underwent percutaneous cholangiogram. External portion of biliary drain was removed. Report showed some small hyperplasia within the distal aspect of the biliary stent but there is a patent channel down to the small bowel internal/external drain was removed. A/P Problem List: (1) Pancreatitis, recurrent ICD Codes: K86.1 - Recurrent pancreatitis Status: Acute Plan: Recurrent Idiopathic pancreatitis Abdominal pain Elevated LFTs Biliary obstruction GNR biliary sepsis - Pt is an 82 y/o female with recurrent idiopathic pancreatitis. Pt was evaluated with ERCP was during her last admission on 06/10/17 --> pt had prior sphincterotomy and a metal stent in the bile duct and were able to obtain easy cannulation of the common bile duct but the stent was clogged up with sludge and stones and so using an 8 mm balloon the stent and the distal CBD were cleaned out then was lavaged and then further cleaning was performed and then an obstructive cholangiogram was finally able to clear the common bile duct of all filling defects. - [place] [facility] [place] with complaints of worsening abdominal pain, N/V for the last 2-3 days. She reports that the pain is the same pain that she has had previously with her pancreatitis. - Her labs in the ED revealed WBC count 22, Cr 2.84/BUN 38, TBili 1.8, AST 646, ALT 461, AlkPhos 349. - CT Abd/pelvis (03/03) --> very mild peripancreatic fluid stranding which may represent low-grade pancreatitis, common bile duct stent noted in place, no evidence of intrahepatic biliary duct dilatation, significant soft tissue fullness in the bret hepatis surrounding the proximal portion of the stent, s/ p cholecystectomy, gastric balloon of the gastrojejunostomy as migrated into the stomach and needs to be pulled back and secured, and degenerative anterolisthesis at L5-S1 with advanced degenerative changes in the lower lumbar spine and mild airspace disease left base. - ERCP (03/03/18) --> Multiple stones, migrated metal stent up into CBD, could not put plastic stent due to "kink" in current stent according to GI notes - Pt had PTC 03/04 by IR -->severe obstruction of the proximal common bile duct stent with very challenging recanalization requiring multiple wires and catheters. Uncomplicated biliary stent placement - Repeat ERCP (03/07/18) --> Metallic stent was occluded for the most part with sludge and stones with a noted internal/external stent piercing this clogging and allowing for drainage into the duodenum once he was able to booth through the clogging an 8 mm balloon was attempted but then a CRE balloon with varying sizes up to a 10 [place] was used to clean out the metallic stent within the bile duct and he was able to confirm complete clearance of the stent with good emptying through the stent. - GI discussed the case with IR after the ERCP on 03/07 and it was recommended that the internal/external stent needs to be removed at some point in the near future and once the internal/external stent has been removed we will proceed with a repeat ERCP with the intention of either removing this old metallic stent and replacing it with another or just double stenting. - 03/09/18 Pt underwent percutaneous cholangiogram. External portion of biliary drain was removed. Report showed some small hyperplasia within the distal aspect of the biliary stent but there is a patent channel down to the small bowel internal/external drain was removed. - LFTs and renal function improved from admission - IV Rocephin (03/07 - present) - Blood cultures (03/03) --> 2/4 bottles growing E. coli. - Repeat blood cultures (03/11/18) --> No growth x 4 day - DC Dilaudid. Continue [place] as needed for pain - soft diet - DVT prophylaxis with SCDs abdomen pain improving. wbc trending down. lipase elevation. I think the elevated wbc and abdomen pain over past several days was pancreatitis related continue current rx. monitor. high risk for readmission. (2) Elevated liver enzymes ICD Codes: R74.8 - Abnormal levels of other serum enzymes Status: Acute Plan: - improving from admission. (3) Acute on chronic kidney disease, stage 3 ICD Codes: N18.3 - Acute worsening of stage 3 chronic kidney disease Status: Chronic Plan: - acute on chronic CKD- stage 3 - number improved from admission. Bryan Quezada MD March 17, 2018 12:28
[2018-03-17 15:33] VITALS: BP 145/72; PULSE 81; RESP 19; TEMP 97.8; O2SAT 100
[2018-03-17 21:13] VITALS: BP 157/76; PULSE 82; RESP 20; TEMP 98.4; O2SAT 99
[2018-03-17] MEDS: cefTRIAXone INJ 1,000 MG in SODIUM CHLORIDE 0.9% INJ 100 ML IV SCH (21:16)
[2018-03-18 00:56] VITALS: BP 161/75; PULSE 95; RESP 30; TEMP 97.7; O2SAT 94
[2018-03-18] MEDS: ONDANSETRON HCL 4 MG/2 ML VIAL IV PRN (01:09)
[2018-03-18] MEDS: ACETAMINOPHEN/HYDROcodone 325 MG/10 MG TAB PO PRN ×6 (01:16→21:09)
[2018-03-18 04:58] VITALS: BP 171/77; PULSE 79; RESP 20; TEMP 98.5; O2SAT 100
[2018-03-18] MEDS: SIMETHICONE 125 MG CHEWABLE TAB PO SCH ×3 (05:07→21:09)
[2018-03-18 06:26] LABS: AUTOMATED NEUTROPHIL # 16.4 TH/MM3 (1.8-7.7); BASOPHIL # 0.1 TH/MM3 (0-0.2); BASOPHIL % 0.4 % (0.0-2.0); EOSINOPHIL # 0.4 TH/MM3 (0-0.4); EOSINOPHIL % 1.8 % (0.0-4.0); HEMATOCRIT 32.2 % (35.0-46.0); HEMOGLOBIN 10.4 GM/DL (11.6-15.3); LYMPH % 6.9 % (9.0-44.0); LYMPHOCYTE # 1.3 TH/MM3 (1.0-4.8); MEAN CELL VOLUME 87.5 FL (80.0-100.0); MEAN CORPUSCULAR HEMOGLOBIN 28.3 PG (27.0-34.0); MEAN CORPUSCULAR HGB CONC 32.4 % (32.0-36.0); MEAN PLATELET VOLUME 9.3 FL (7.0-11.0); MONO % 6.3 % (0.0-8.0); MONOCYTE # 1.2 TH/MM3 (0-0.9); NEUT % 84.6 % (16.0-70.0); PLATELET COUNT 452 TH/MM3 (150-450); RED BLOOD COUNT 3.68 MIL/MM3 (4.00-5.30); WHITE BLOOD COUNT 19.4 TH/MM3 (4.0-11.0)
[2018-03-18 08:00] LABS: BANDS 15 % (0-6); LYMPHOCYTES 3 % (9-44); MONOCYTES 4 % (0-8); NEUTROPHIL # MANUAL DIFF 17.8 TH/MM3 (1.8-7.7); POLYS (SEG NEUTROPHILS) 77 % (16-70)
[2018-03-18 08:28] VITALS: BP 157/73; PULSE 83; RESP 18; TEMP 98.5; O2SAT 96
[2018-03-18] MEDS: METOPROLOL TARTRATE 25 MG TAB PO SCH ×2 (09:08→21:09)
[2018-03-18] MEDS: DILTIAZEM-CD 240 MG CAP ER PO SCH (09:08)
[2018-03-18] MEDS: PANTOPRAZOLE SODIUM 40 MG VIAL IV PUSH SCH ×2 (09:09→23:40)
[2018-03-18] MEDS: LIPASE/PROTEASE/AMYLASE (12,000/38,000/60,000) CAP PO SCH ×3 (09:09→17:13)
[2018-03-18 12:00] VITALS: BP 161/77; PULSE 96; RESP 18; TEMP 98.1; O2SAT 99
--- NOTE | 2018-03-18 12:15 | HHI.PR ---
Subjective Remarks some persistent abd pain but seems to tolerate the food Objective Vitals heart reg lung cta abd mild epigastric tenderness. bs ext no edema Vital Signs Date Time Temp Pulse Resp B/P (MAP) Pulse Ox O2 Delivery O2 Flow Rate FiO2 03/18/18 08:28 98.5 83 18 157/73 (101) 96 03/18/18 04:58 98.5 79 20 171/77 (108) 100 03/18/18 00:56 97.7 95 30 161/75 (103) 94 03/17/18 21:13 98.4 82 20 157/76 (103) 99 03/17/18 15:33 97.8 81 19 145/72 (96) 100 Result Diagram: 03/18/18 0420 03/15/18 0711 Imaging Last Impressions Cholangiogram 03/09/18 0000 Signed Impressions: Service Date/Time: Friday, March 09, 2018 15:15 - CONCLUSION: 1. Some intimal hyperplasia within the distal aspect of the biliary stent but there is a patent channel down to the small bowel. 2. Internal/external drain was removed. Eliud Lala MD GI Procedure 03/07/18 0000 Signed Impressions: Service Date/Time: Wednesday, March 07, 2018 11:06 - CONCLUSION: ERCP as above. Yunier Santana MD Bile Duct Drainage 03/04/18 0000 Signed Impressions: Service Date/Time: Sunday, March 04, 2018 12:02 - CONCLUSION: 1. Very severe obstruction of the proximal common bile duct stent with very challenging recanalization requiring multiple wires and catheters. 2. Uncomplicated biliary stent placement as above. Plan: Patient may require upsizing of the catheter as only an 8 [place] catheter could be placed. vermin exterminator, consideration may be given to extending the stent centrally and distally although sufficient radial strength to allow for stent deployment in the currently obstructed proximal stent is of significant concern. Bhavin Montemayor MD Abdomen X-Ray 03/04/18 0000 Signed Impressions: Service Date/Time: Sunday, March 04, 2018 16:53 - CONCLUSION: No evidence of obstruction. Tube in the jejunum. Jamie Tabor MD FACR Abdomen/Pelvis CT 03/03/18 0820 Signed Impressions: Service Date/Time: February 09:06 - CONCLUSION: 1. Very mild peripancreatic fluid stranding which may represent low-grade pancreatitis. 2. Common bile duct stent noted in place. There is no evidence of intrahepatic biliary duct dilatation. 3. Significant soft tissue fullness in the bret hepatis surrounding the proximal portion of the stent. 4. Status post cholecystectomy. 5. Gastric balloon of the gastrojejunostomy as migrated into the stomach and needs to be pulled back and secured. 6. Degenerative anterolisthesis at L5-S1 with advanced degenerative changes in the lower lumbar spine. 7. Mild airspace disease left base. Baron Shin MD Procedures - ERCP (03/03/18) --> Multiple stones, migrated metal stent up into CBD, could not put plastic stent due to "kink" in current stent according to GI notes - PTC 03/04 by IR -->severe obstruction of the proximal common bile duct stent with very challenging recanalization requiring multiple wires and catheters. biliary stent placement - Repeat ERCP (03/07/18) --> Metallic stent was occluded for the most part with sludge and stones with a noted internal/external stent piercing this clogging and allowing for drainage into the duodenum once he was able to booth through the clogging an 8 mm balloon was attempted but then a CRE balloon with varying sizes up to a 10 [place] was used to clean out the metallic stent within the bile duct and he was able to confirm complete clearance of the stent with good emptying through the stent. - 03/09/18 Pt underwent percutaneous cholangiogram. External portion of biliary drain was removed. Report showed some small hyperplasia within the distal aspect of the biliary stent but there is a patent channel down to the small bowel internal/external drain was removed. A/P Problem List: (1) Pancreatitis, recurrent ICD Codes: K86.1 - Recurrent pancreatitis Status: Acute Plan: Recurrent Idiopathic pancreatitis Abdominal pain Elevated LFTs Biliary obstruction GNR biliary sepsis - Pt is an 82 y/o female with recurrent idiopathic pancreatitis. Pt was evaluated with ERCP was during her last admission on 06/10/17 --> pt had prior sphincterotomy and a metal stent in the bile duct and were able to obtain easy cannulation of the common bile duct but the stent was clogged up with sludge and stones and so using an 8 mm balloon the stent and the distal CBD were cleaned out then was lavaged and then further cleaning was performed and then an obstructive cholangiogram was finally able to clear the common bile duct of all filling defects. - Pt presented to the ED at [facility] [place]03[place]18 with complaints of worsening abdominal pain, N/V for the last 2-3 days. She reports that the pain is the same pain that she has had previously with her pancreatitis. - Her labs in the ED revealed WBC count 22, Cr 2.84/BUN 38, TBili 1.8, AST 646, ALT 461, AlkPhos 349. - CT Abd/pelvis (03/03) --> very mild peripancreatic fluid stranding which may represent low-grade pancreatitis, common bile duct stent noted in place, no evidence of intrahepatic biliary duct dilatation, significant soft tissue fullness in the bret hepatis surrounding the proximal portion of the stent, s/ p cholecystectomy, gastric balloon of the gastrojejunostomy as migrated into the stomach and needs to be pulled back and secured, and degenerative anterolisthesis at L5-S1 with advanced degenerative changes in the lower lumbar spine and mild airspace disease left base. - ERCP (03/03/18) --> Multiple stones, migrated metal stent up into CBD, could not put plastic stent due to "kink" in current stent according to GI notes - Pt had PTC 03/04 by IR -->severe obstruction of the proximal common bile duct stent with very challenging recanalization requiring multiple wires and catheters. Uncomplicated biliary stent placement - Repeat ERCP (03/07/18) --> Metallic stent was occluded for the most part with sludge and stones with a noted internal/external stent piercing this clogging and allowing for drainage into the duodenum once he was able to booth through the clogging an 8 mm balloon was attempted but then a CRE balloon with varying sizes up to a 10 [place] was used to clean out the metallic stent within the bile duct and he was able to confirm complete clearance of the stent with good emptying through the stent. - GI discussed the case with IR after the ERCP on 03/07 and it was recommended that the internal/external stent needs to be removed at some point in the near future and once the internal/external stent has been removed we will proceed with a repeat ERCP with the intention of either removing this old metallic stent and replacing it with another or just double stenting. - 03/09/18 Pt underwent percutaneous cholangiogram. External portion of biliary drain was removed. Report showed some small hyperplasia within the distal aspect of the biliary stent but there is a patent channel down to the small bowel internal/external drain was removed. - LFTs and renal function improved from admission - IV Rocephin (03/07 - present) - Blood cultures (03/03) --> 2/4 bottles growing E. coli. - Repeat blood cultures (03/11/18) --> No growth x 4 day - DC Dilaudid. Continue [place] as needed for pain - soft diet - DVT prophylaxis with SCDs abdomen pain improving. wbc trending down. lipase elevation. I think the elevated wbc and abdomen pain over past several days was pancreatitis related continue current rx. monitor. high risk for readmission. I am going to encourage pt to d/c home in AM. (2) Elevated liver enzymes ICD Codes: R74.8 - Abnormal levels of other serum enzymes Status: Acute Plan: - improving from admission. (3) Acute on chronic kidney disease, stage 3 ICD Codes: N18.3 - Acute worsening of stage 3 chronic kidney disease Status: Chronic Plan: - acute on chronic CKD- stage 3 - number improved from admission. Bryan Quezada MD March 18, 2018 12:14
[2018-03-18 16:00] VITALS: BP 155/85; PULSE 79; RESP 18; TEMP 98.4; O2SAT 97
[2018-03-18 20:07] VITALS: BP 167/75; PULSE 80; RESP 20; TEMP 98.3; O2SAT 99
[2018-03-18] MEDS: cefTRIAXone INJ 1,000 MG in SODIUM CHLORIDE 0.9% INJ 100 ML IV SCH (21:09)
[2018-03-19 00:20] VITALS: BP 167/80; PULSE 76; RESP 20; TEMP 98.1; O2SAT 100
[2018-03-19] MEDS: ACETAMINOPHEN/HYDROcodone 325 MG/10 MG TAB PO PRN ×6 (01:07→20:23)
[2018-03-19] MEDS: ONDANSETRON HCL 4 MG/2 ML VIAL IV PRN ×3 (03:30→18:02)
[2018-03-19 04:40] VITALS: BP 157/74; PULSE 79; RESP 18; TEMP 97.7; O2SAT 97
[2018-03-19] MEDS: SIMETHICONE 125 MG CHEWABLE TAB PO SCH ×3 (04:48→20:23)
[2018-03-19] MEDS: DILTIAZEM-CD 240 MG CAP ER PO SCH (08:53)
[2018-03-19] MEDS: METOPROLOL TARTRATE 25 MG TAB PO SCH ×2 (08:53→20:23)
[2018-03-19] MEDS: LIPASE/PROTEASE/AMYLASE (12,000/38,000/60,000) CAP PO SCH ×3 (08:54→18:00)
[2018-03-19 08:58] VITALS: BP 154/74; PULSE 83; RESP 20; TEMP 98.2; O2SAT 99
--- NOTE | 2018-03-19 10:35 | HHI.PR ---
Subjective Remarks pt crying in pain. epigastric. begging for pain meds. Objective Vitals heart reg lung cta abd epigastric tenderness. Vital Signs Date Time Temp Pulse Resp B/P (MAP) Pulse Ox O2 Delivery O2 Flow Rate FiO2 03/19/18 08:58 98.2 83 20 154/74 (100) 99 03/19/18 04:40 97.7 79 18 157/74 (101) 97 03/19/18 00:20 98.1 76 20 167/80 (109) 100 03/18/18 20:07 98.3 80 20 167/75 (105) 99 03/18/18 16:00 98.4 79 18 155/85 (108) 97 03/18/18 12:00 98.1 96 18 161/77 (105) 99 Result Diagram: 03/18/18 0420 03/15/18 0711 Imaging Last Impressions Cholangiogram 03/09/18 0000 Signed Impressions: Service Date/Time: Friday, March 09, 2018 15:15 - CONCLUSION: 1. Some intimal hyperplasia within the distal aspect of the biliary stent but there is a patent channel down to the small bowel. 2. Internal/external drain was removed. Eliud Lala MD GI Procedure 03/07/18 0000 Signed Impressions: Service Date/Time: Wednesday, March 07, 2018 11:06 - CONCLUSION: ERCP as above. Yunier Santana MD Bile Duct Drainage 03/04/18 0000 Signed Impressions: Service Date/Time: Sunday, March 04, 2018 12:02 - CONCLUSION: 1. Very severe obstruction of the proximal common bile duct stent with very challenging recanalization requiring multiple wires and catheters. 2. Uncomplicated biliary stent placement as above. Plan: Patient may require upsizing of the catheter as only an 8 Sloven[place] catheter could be placed. termite inspector, consideration may be given to extending the stent centrally and distally although sufficient radial strength to allow for stent deployment in the currently obstructed proximal stent is of significant concern. Bhavin Montemayor MD Abdomen X-Ray 03/04/18 0000 Signed Impressions: Service Date/Time: Sunday, March 04, 2018 16:53 - CONCLUSION: No evidence of obstruction. Tube in the jejunum. Jamie Tabor MD FACR Abdomen/Pelvis CT 03/03/18 0820 Signed Impressions: Service Date/Time: February 09:06 - CONCLUSION: 1. Very mild peripancreatic fluid stranding which may represent low-grade pancreatitis. 2. Common bile duct stent noted in place. There is no evidence of intrahepatic biliary duct dilatation. 3. Significant soft tissue fullness in the bret hepatis surrounding the proximal portion of the stent. 4. Status post cholecystectomy. 5. Gastric balloon of the gastrojejunostomy as migrated into the stomach and needs to be pulled back and secured. 6. Degenerative anterolisthesis at L5-S1 with advanced degenerative changes in the lower lumbar spine. 7. Mild airspace disease left base. Baron Shin MD Procedures - ERCP (03/03/18) --> Multiple stones, migrated metal stent up into CBD, could not put plastic stent due to "kink" in current stent according to GI notes - PTC 03/04 by IR -->severe obstruction of the proximal common bile duct stent with very challenging recanalization requiring multiple wires and catheters. biliary stent placement - Repeat ERCP (03/07/18) --> Metallic stent was occluded for the most part with sludge and stones with a noted internal/external stent piercing this clogging and allowing for drainage into the duodenum once he was able to booth through the clogging an 8 mm balloon was attempted but then a CRE balloon with varying sizes up to a 10 Slovenian was used to clean out the metallic stent within the bile duct and he was able to confirm complete clearance of the stent with good emptying through the stent. - 03/09/18 Pt underwent percutaneous cholangiogram. External portion of biliary drain was removed. Report showed some small hyperplasia within the distal aspect of the biliary stent but there is a patent channel down to the small bowel internal/external drain was removed. A/P Problem List: (1) Pancreatitis, recurrent ICD Codes: K86.1 - Recurrent pancreatitis Status: Acute Plan: Recurrent Idiopathic pancreatitis Abdominal pain Elevated LFTs Biliary obstruction GNR biliary sepsis - Pt is an 82 y/o female with recurrent idiopathic pancreatitis. Pt was evaluated with ERCP was during her last admission on 06/10/17 --> pt had prior sphincterotomy and a metal stent in the bile duct and were able to obtain easy cannulation of the common bile duct but the stent was clogged up with sludge and stones and so using an 8 mm balloon the stent and the distal CBD were cleaned out then was lavaged and then further cleaning was performed and then an obstructive cholangiogram was finally able to clear the common bile duct of all filling defects. - Pt presented to the ED at [facility] [place] on 03/03/18 with complaints of worsening abdominal pain, N/V for the last 2-3 days. She reports that the pain is the same pain that she has had previously with her pancreatitis. - Her labs in the ED revealed WBC count 22, Cr 2.84/BUN 38, TBili 1.8, AST 646, ALT 461, AlkPhos 349. - CT Abd/pelvis (03/03) --> very mild peripancreatic fluid stranding which may represent low-grade pancreatitis, common bile duct stent noted in place, no evidence of intrahepatic biliary duct dilatation, significant soft tissue fullness in the bret hepatis surrounding the proximal portion of the stent, s/ p cholecystectomy, gastric balloon of the gastrojejunostomy as migrated into the stomach and needs to be pulled back and secured, and degenerative anterolisthesis at L5-S1 with advanced degenerative changes in the lower lumbar spine and mild airspace disease left base. - ERCP (03/03/18) --> Multiple stones, migrated metal stent up into CBD, could not put plastic stent due to "kink" in current stent according to GI notes - Pt had PTC 03/04 by IR -->severe obstruction of the proximal common bile duct stent with very challenging recanalization requiring multiple wires and catheters. Uncomplicated biliary stent placement - Repeat ERCP (03/07/18) --> Metallic stent was occluded for the most part with sludge and stones with a noted internal/external stent piercing this clogging and allowing for drainage into the duodenum once he was able to booth through the clogging an 8 mm balloon was attempted but then a CRE balloon with varying sizes up to a 10 Slovenian was used to clean out the metallic stent within the bile duct and he was able to confirm complete clearance of the stent with good emptying through the stent. - GI discussed the case with IR after the ERCP on 03/07 and it was recommended that the internal/external stent needs to be removed at some point in the near future and once the internal/external stent has been removed we will proceed with a repeat ERCP with the intention of either removing this old metallic stent and replacing it with another or just double stenting. - 03/09/18 Pt underwent percutaneous cholangiogram. External portion of biliary drain was removed. Report showed some small hyperplasia within the distal aspect of the biliary stent but there is a patent channel down to the small bowel internal/external drain was removed. - LFTs and renal function improved from admission - IV Rocephin (03/07 - present) - Blood cultures (03/03) --> 2/4 bottles growing E. coli. - Repeat blood cultures (03/11/18) --> No growth x 4 day - DC Dilaudid. Continue [place] as needed for pain - soft diet - DVT prophylaxis with SCDs I think pt again has some acute pancreatitis. will place back down to clears and observe. (2) Elevated liver enzymes ICD Codes: R74.8 - Abnormal levels of other serum enzymes Status: Acute Plan: - improving from admission. (3) Acute on chronic kidney disease, stage 3 ICD Codes: N18.3 - Acute worsening of stage 3 chronic kidney disease Status: Chronic Plan: - acute on chronic CKD- stage 3 - number improved from admission. Bryan Quezada MD March 19, 2018 10:35
[2018-03-19 12:00] VITALS: BP 139/65; PULSE 74; RESP 18; TEMP 98.4; O2SAT 100
[2018-03-19] MEDS: PANTOPRAZOLE SODIUM 40 MG VIAL IV PUSH SCH ×2 (12:12→20:25)
[2018-03-19 16:00] VITALS: BP 159/74; PULSE 80; RESP 18; TEMP 98.1; O2SAT 100
[2018-03-19] MEDS: cefTRIAXone INJ 1,000 MG in SODIUM CHLORIDE 0.9% INJ 100 ML IV SCH (20:23)
[2018-03-19 22:30] VITALS: BP 156/67; PULSE 89; RESP 19; TEMP 97.8; O2SAT 96
[2018-03-20] MEDS: ACETAMINOPHEN/HYDROcodone 325 MG/10 MG TAB PO PRN ×6 (00:09→20:06)
[2018-03-20 00:30] VITALS: BP 149/60; PULSE 88; RESP 20; TEMP 98.8; O2SAT 95
[2018-03-20] MEDS: ONDANSETRON HCL 4 MG/2 ML VIAL IV PRN ×4 (04:22→22:24)
[2018-03-20] MEDS: SIMETHICONE 125 MG CHEWABLE TAB PO SCH ×3 (04:22→22:00)
[2018-03-20 05:00] VITALS: BP 140/78; PULSE 80; RESP 18; TEMP 97.9; O2SAT 97
[2018-03-20 08:00] VITALS: BP 171/78; PULSE 86; RESP 18; TEMP 97.6; O2SAT 99
[2018-03-20 08:03] LABS: AUTOMATED NEUTROPHIL # 17.3 TH/MM3 (1.8-7.7); BASOPHIL # 0.1 TH/MM3 (0-0.2); BASOPHIL % 0.5 % (0.0-2.0); EOSINOPHIL # 0.2 TH/MM3 (0-0.4); HEMATOCRIT 32.2 % (35.0-46.0); HEMOGLOBIN 10.5 GM/DL (11.6-15.3); LYMPH % 6.5 % (9.0-44.0); LYMPHOCYTE # 1.3 TH/MM3 (1.0-4.8); MEAN CELL VOLUME 86.6 FL (80.0-100.0); MEAN CORPUSCULAR HEMOGLOBIN 28.2 PG (27.0-34.0); MEAN CORPUSCULAR HGB CONC 32.6 % (32.0-36.0); MONO % 6.4 % (0.0-8.0); MONOCYTE # 1.3 TH/MM3 (0-0.9); NEUT % 85.6 % (16.0-70.0); PLATELET COUNT 473 TH/MM3 (150-450); RED BLOOD COUNT 3.72 MIL/MM3 (4.00-5.30); RED CELL DISTRIBUTION WIDTH 13.7 % (11.6-17.2); WHITE BLOOD COUNT 20.2 TH/MM3 (4.0-11.0)
[2018-03-20] MEDS: LIPASE/PROTEASE/AMYLASE (12,000/38,000/60,000) CAP PO SCH ×3 (08:09→17:49)
[2018-03-20] MEDS: METOPROLOL TARTRATE 25 MG TAB PO SCH ×2 (08:09→20:06)
[2018-03-20] MEDS: DILTIAZEM-CD 240 MG CAP ER PO SCH (08:09)
[2018-03-20] MEDS: PANTOPRAZOLE SODIUM 40 MG VIAL IV PUSH SCH ×2 (10:07→22:24)
--- NOTE | 2018-03-20 10:55 | HHI.PR ---
Subjective Remarks slightly better pain with clears no bm Objective Vitals heart reg lung cta abd s/epigastric tenderness. bs ext no edema Vital Signs Date Time Temp Pulse Resp B/P (MAP) Pulse Ox O2 Delivery O2 Flow Rate FiO2 03/20/18 08:00 97.6 86 18 171/78 (109) 99 03/20/18 05:00 97.9 80 18 140/78 (98) 97 03/20/18 00:30 98.8 88 20 149/60 (89) 95 03/19/18 22:30 97.8 89 19 156/67 (96) 96 03/19/18 16:00 98.1 80 18 159/74 (102) 100 03/19/18 12:00 98.4 74 18 139/65 (89) 100 Result Diagram: 03/20/18 0646 Imaging Last Impressions Cholangiogram 03/09/18 0000 Signed Impressions: Service Date/Time: Friday, March 09, 2018 15:15 - CONCLUSION: 1. Some intimal hyperplasia within the distal aspect of the biliary stent but there is a patent channel down to the small bowel. 2. Internal/external drain was removed. Eliud Lala MD GI Procedure 03/07/18 0000 Signed Impressions: Service Date/Time: Wednesday, March 07, 2018 11:06 - CONCLUSION: ERCP as above. Yunier Santana MD Bile Duct Drainage 03/04/18 0000 Signed Impressions: Service Date/Time: Sunday, March 04, 2018 12:02 - CONCLUSION: 1. Very severe obstruction of the proximal common bile duct stent with very challenging recanalization requiring multiple wires and catheters. 2. Uncomplicated biliary stent placement as above. Plan: Patient may require upsizing of the catheter as only an 8 Algerian catheter could be placed. terminal clerk, consideration may be given to extending the stent centrally and distally although sufficient radial strength to allow for stent deployment in the currently obstructed proximal stent is of significant concern. Bhavin Montemayor MD Abdomen X-Ray 03/04/18 0000 Signed Impressions: Service Date/Time: Sunday, March 04, 2018 16:53 - CONCLUSION: No evidence of obstruction. Tube in the jejunum. Jamie Tabor MD FACR Abdomen/Pelvis CT 03/03/18 0820 Signed Impressions: Service Date/Time: February 09:06 - CONCLUSION: 1. Very mild peripancreatic fluid stranding which may represent low-grade pancreatitis. 2. Common bile duct stent noted in place. There is no evidence of intrahepatic biliary duct dilatation. 3. Significant soft tissue fullness in the bret hepatis surrounding the proximal portion of the stent. 4. Status post cholecystectomy. 5. Gastric balloon of the gastrojejunostomy as migrated into the stomach and needs to be pulled back and secured. 6. Degenerative anterolisthesis at L5-S1 with advanced degenerative changes in the lower lumbar spine. 7. Mild airspace disease left base. Baron Shin MD Procedures - ERCP (03/03/18) --> Multiple stones, migrated metal stent up into CBD, could not put plastic stent due to "kink" in current stent according to GI notes - PTC 03/04 by IR -->severe obstruction of the proximal common bile duct stent with very challenging recanalization requiring multiple wires and catheters. biliary stent placement - Repeat ERCP (03/07/18) --> Metallic stent was occluded for the most part with sludge and stones with a noted internal/external stent piercing this clogging and allowing for drainage into the duodenum once he was able to booth through the clogging an 8 mm balloon was attempted but then a CRE balloon with varying sizes up to a 10 Algerian was used to clean out the metallic stent within the bile duct and he was able to confirm complete clearance of the stent with good emptying through the stent. - 03/09/18 Pt underwent percutaneous cholangiogram. External portion of biliary drain was removed. Report showed some small hyperplasia within the distal aspect of the biliary stent but there is a patent channel down to the small bowel internal/external drain was removed. A/P Problem List: (1) Pancreatitis, recurrent ICD Codes: K86.1 - Recurrent pancreatitis Status: Acute Plan: Recurrent Idiopathic pancreatitis Abdominal pain Elevated LFTs Biliary obstruction GNR biliary sepsis - Pt is an 82 y/o female with recurrent idiopathic pancreatitis. Pt was evaluated with ERCP was during her last admission on 06/10/17 --> pt had prior sphincterotomy and a metal stent in the bile duct and were able to obtain easy cannulation of the common bile duct but the stent was clogged up with sludge and stones and so using an 8 mm balloon the stent and the distal CBD were cleaned out then was lavaged and then further cleaning was performed and then an obstructive cholangiogram was finally able to clear the common bile duct of all filling defects. - Pt presented to the ED at [facility] [place] on 03/03/18 with complaints of worsening abdominal pain, N/V for the last 2-3 days. She reports that the pain is the same pain that she has had previously with her pancreatitis. - Her labs in the ED revealed WBC count 22, Cr 2.84/BUN 38, TBili 1.8, AST 646, ALT 461, AlkPhos 349. - CT Abd/pelvis (03/03) --> very mild peripancreatic fluid stranding which may represent low-grade pancreatitis, common bile duct stent noted in place, no evidence of intrahepatic biliary duct dilatation, significant soft tissue fullness in the bret hepatis surrounding the proximal portion of the stent, s/ p cholecystectomy, gastric balloon of the gastrojejunostomy as migrated into the stomach and needs to be pulled back and secured, and degenerative anterolisthesis at L5-S1 with advanced degenerative changes in the lower lumbar spine and mild airspace disease left base. - ERCP (03/03/18) --> Multiple stones, migrated metal stent up into CBD, could not put plastic stent due to "kink" in current stent according to GI notes - Pt had PTC 03/04 by IR -->severe obstruction of the proximal common bile duct stent with very challenging recanalization requiring multiple wires and catheters. Uncomplicated biliary stent placement - Repeat ERCP (03/07/18) --> Metallic stent was occluded for the most part with sludge and stones with a noted internal/external stent piercing this clogging and allowing for drainage into the duodenum once he was able to booth through the clogging an 8 mm balloon was attempted but then a CRE balloon with varying sizes up to a 10 Algerian was used to clean out the metallic stent within the bile duct and he was able to confirm complete clearance of the stent with good emptying through the stent. - GI discussed the case with IR after the ERCP on 03/07 and it was recommended that the internal/external stent needs to be removed at some point in the near future and once the internal/external stent has been removed we will proceed with a repeat ERCP with the intention of either removing this old metallic stent and replacing it with another or just double stenting. - 03/09/18 Pt underwent percutaneous cholangiogram. External portion of biliary drain was removed. Report showed some small hyperplasia within the distal aspect of the biliary stent but there is a patent channel down to the small bowel internal/external drain was removed. - LFTs and renal function improved from admission - IV Rocephin (03/07 - present) - Blood cultures (03/03) --> 2/4 bottles growing E. coli. - Repeat blood cultures (03/11/18) --> No growth - DC Dilaudid. Continue [place] as needed for pain - DVT prophylaxis with SCDs I think pt again has some acute pancreatitis. placed back down to clears and observe. laxatives. repeat labs in AM high risk fo readmission. (2) Elevated liver enzymes ICD Codes: R74.8 - Abnormal levels of other serum enzymes Status: Acute Plan: - improving from admission. (3) Acute on chronic kidney disease, stage 3 ICD Codes: N18.3 - Acute worsening of stage 3 chronic kidney disease Status: Chronic Plan: - acute on chronic CKD- stage 3 - number improved from admission. Bryan Quezada MD March 20, 2018 10:55
[2018-03-20 12:00] VITALS: BP 141/70; PULSE 78; RESP 18; TEMP 98.2; O2SAT 97
[2018-03-20] MEDS: LACTULOSE SYRUP 20 GM/30 ML CUP PO SCH ×2 (12:24→16:03)
[2018-03-20 16:00] VITALS: BP 127/78; PULSE 84; RESP 18; TEMP 97.9; O2SAT 99
[2018-03-20] MEDS: cefTRIAXone INJ 1,000 MG in SODIUM CHLORIDE 0.9% INJ 100 ML IV SCH (20:07)
[2018-03-20 21:45] VITALS: BP 148/67; PULSE 88; RESP 18; TEMP 97.8; O2SAT 97
[2018-03-21] VITALS: BP 140/74; PULSE 80; RESP 19; TEMP 98.2; O2SAT 98
[2018-03-21] MEDS: ACETAMINOPHEN/HYDROcodone 325 MG/10 MG TAB PO PRN ×6 (03:26→23:56)
[2018-03-21 04:45] VITALS: BP 130/87; PULSE 80; RESP 18; TEMP 97.7; O2SAT 97
[2018-03-21 05:21] LABS: AUTOMATED NEUTROPHIL # 17.5 TH/MM3 (1.8-7.7); BASOPHIL # 0.2 TH/MM3 (0-0.2); EOSINOPHIL # 0.1 TH/MM3 (0-0.4); EOSINOPHIL % 0.6 % (0.0-4.0); HEMATOCRIT 32.8 % (35.0-46.0); HEMOGLOBIN 10.6 GM/DL (11.6-15.3); LYMPH % 5.1 % (9.0-44.0); MEAN CELL VOLUME 85.6 FL (80.0-100.0); MEAN CORPUSCULAR HEMOGLOBIN 27.7 PG (27.0-34.0); MEAN CORPUSCULAR HGB CONC 32.3 % (32.0-36.0); MEAN PLATELET VOLUME 8.6 FL (7.0-11.0); MONO % 5.1 % (0.0-8.0); NEUT % 88.2 % (16.0-70.0); PLATELET COUNT 465 TH/MM3 (150-450); RED BLOOD COUNT 3.84 MIL/MM3 (4.00-5.30); RED CELL DISTRIBUTION WIDTH 13.7 % (11.6-17.2); WHITE BLOOD COUNT 19.8 TH/MM3 (4.0-11.0)
[2018-03-21] MEDS: SIMETHICONE 125 MG CHEWABLE TAB PO SCH ×3 (07:21→23:51)
[2018-03-21] MEDS: ONDANSETRON HCL 4 MG/2 ML VIAL IV PRN (07:21)
[2018-03-21 07:56] VITALS: BP 142/69; PULSE 81; RESP 20; TEMP 98.6; O2SAT 98
[2018-03-21] MEDS: METOPROLOL TARTRATE 25 MG TAB PO SCH ×2 (08:54→20:06)
[2018-03-21] MEDS: DILTIAZEM-CD 240 MG CAP ER PO SCH (08:54)
[2018-03-21] MEDS: LIPASE/PROTEASE/AMYLASE (12,000/38,000/60,000) CAP PO SCH ×3 (08:54→18:14)
--- NOTE | 2018-03-21 10:30 | HHI.PR ---
Subjective Remarks Pt still complains of abdominal pain, tolerating very little po intake Afebrile Objective Vitals Vital Signs Date Time Temp Pulse Resp B/P (MAP) Pulse Ox O2 Delivery O2 Flow Rate FiO2 03/21/18 07:56 98.6 81 20 142/69 (93) 98 03/21/18 04:45 97.7 80 18 130/87 (101) 97 03/21/18 00:00 98.2 80 19 140/74 (96) 98 03/20/18 21:45 97.8 88 18 148/67 (94) 97 03/20/18 16:00 97.9 84 18 127/78 (94) 99 03/20/18 12:00 98.2 78 18 141/70 (93) 97 Result Diagram: 03/21/18 0448 Other Results Laboratory Tests Test 03/20/18 06:46 03/21/18 04:48 White Blood Count 20.2 TH/MM3 19.8 TH/MM3 Red Blood Count 3.72 MIL/MM3 3.84 MIL/MM3 Hemoglobin 10.5 GM/DL 10.6 GM/DL Hematocrit 32.2 % 32.8 % Mean Corpuscular Volume 86.6 FL 85.6 FL Mean Corpuscular Hemoglobin 28.2 PG 27.7 PG Mean Corpuscular Hemoglobin Concent 32.6 % 32.3 % Red Cell Distribution Width 13.7 % 13.7 % Platelet Count 473 TH/MM3 465 TH/MM3 Mean Platelet Volume 9.0 FL 8.6 FL Neutrophils (%) (Auto) 85.6 % 88.2 % Lymphocytes (%) (Auto) 6.5 % 5.1 % Monocytes (%) (Auto) 6.4 % 5.1 % Eosinophils (%) (Auto) 1.0 % 0.6 % Basophils (%) (Auto) 0.5 % 1.0 % Neutrophils # (Auto) 17.3 TH/MM3 17.5 TH/MM3 Lymphocytes # (Auto) 1.3 TH/MM3 1.0 TH/MM3 Monocytes # (Auto) 1.3 TH/MM3 1.0 TH/MM3 Eosinophils # (Auto) 0.2 TH/MM3 0.1 TH/MM3 Basophils # (Auto) 0.1 TH/MM3 0.2 TH/MM3 CBC Comment DIFF FINAL DIFF FINAL Differential Comment Lipase 913 U/L 748 U/L Imaging Last Impressions Cholangiogram 03/09/18 0000 Signed Impressions: Service Date/Time: Friday, March 09, 2018 15:15 - CONCLUSION: 1. Some intimal hyperplasia within the distal aspect of the biliary stent but there is a patent channel down to the small bowel. 2. Internal/external drain was removed. Eliud Lala MD GI Procedure 03/07/18 0000 Signed Impressions: Service Date/Time: Wednesday, March 07, 2018 11:06 - CONCLUSION: ERCP as above. Yunier Santana MD Bile Duct Drainage 03/04/18 0000 Signed Impressions: Service Date/Time: Sunday, March 04, 2018 12:02 - CONCLUSION: 1. Very severe obstruction of the proximal common bile duct stent with very challenging recanalization requiring multiple wires and catheters. 2. Uncomplicated biliary stent placement as above. Plan: Patient may require upsizing of the catheter as only an 8 Danish catheter could be placed. nursing home, consideration may be given to extending the stent centrally and distally although sufficient radial strength to allow for stent deployment in the currently obstructed proximal stent is of significant concern. Bhavin Montemayor MD Abdomen X-Ray 03/04/18 0000 Signed Impressions: Service Date/Time: Sunday, March 04, 2018 16:53 - CONCLUSION: No evidence of obstruction. Tube in the jejunum. Jamie Tabor MD FACR Abdomen/Pelvis CT 03/03/18 0820 Signed Impressions: Service Date/Time: February 09:06 - CONCLUSION: 1. Very mild peripancreatic fluid stranding which may represent low-grade pancreatitis. 2. Common bile duct stent noted in place. There is no evidence of intrahepatic biliary duct dilatation. 3. Significant soft tissue fullness in the bret hepatis surrounding the proximal portion of the stent. 4. Status post cholecystectomy. 5. Gastric balloon of the gastrojejunostomy as migrated into the stomach and needs to be pulled back and secured. 6. Degenerative anterolisthesis at L5-S1 with advanced degenerative changes in the lower lumbar spine. 7. Mild airspace disease left base. Baron Shin MD Objective Remarks General: NAD, AAOx3 Chest: CTA Cardiac: Regular Abd: +BS, soft epigastric tenderness, GJ tube Ext: No edema Procedures - ERCP (03/03/18) --> Multiple stones, migrated metal stent up into CBD, could not put plastic stent due to "kink" in current stent according to GI notes - PTC 03/04 by IR -->severe obstruction of the proximal common bile duct stent with very challenging recanalization requiring multiple wires and catheters. biliary stent placement - Repeat ERCP (03/07/18) --> Metallic stent was occluded for the most part with sludge and stones with a noted internal/external stent piercing this clogging and allowing for drainage into the duodenum once he was able to booth through the clogging an 8 mm balloon was attempted but then a CRE balloon with varying sizes up to a 10 Danish was used to clean out the metallic stent within the bile duct and he was able to confirm complete clearance of the stent with good emptying through the stent. - 03/09/18 Pt underwent percutaneous cholangiogram. External portion of biliary drain was removed. Report showed some small hyperplasia within the distal aspect of the biliary stent but there is a patent channel down to the small bowel internal/external drain was removed. A/P Problem List: (1) Pancreatitis, recurrent ICD Codes: K86.1 - Recurrent pancreatitis Status: Acute Plan: Recurrent Idiopathic pancreatitis Abdominal pain Elevated LFTs Biliary obstruction GNR biliary sepsis - Pt is an 82 y/o female with recurrent idiopathic pancreatitis. Pt was evaluated with ERCP was during her last admission on 06/10/17 --> pt had prior sphincterotomy and a metal stent in the bile duct and were able to obtain easy cannulation of the common bile duct but the stent was clogged up with sludge and stones and so using an 8 mm balloon the stent and the distal CBD were cleaned out then was lavaged and then further cleaning was performed and then an obstructive cholangiogram was finally able to clear the common bile duct of all filling defects. - Pt presented to the ED at [facility] on 03/03/18 with complaints of worsening abdominal pain, N/V for the last 2-3 days. She reports that the pain is the same pain that she has had previously with her pancreatitis. - Her labs in the ED revealed WBC count 22, Cr 2.84/BUN 38, TBili 1.8, AST 646, ALT 461, AlkPhos 349. - CT Abd/pelvis (03/03) --> very mild peripancreatic fluid stranding which may represent low-grade pancreatitis, common bile duct stent noted in place, no evidence of intrahepatic biliary duct dilatation, significant soft tissue fullness in the bret hepatis surrounding the proximal portion of the stent, s/ p cholecystectomy, gastric balloon of the gastrojejunostomy as migrated into the stomach and needs to be pulled back and secured, and degenerative anterolisthesis at L5-S1 with advanced degenerative changes in the lower lumbar spine and mild airspace disease left base. - ERCP (03/03/18) --> Multiple stones, migrated metal stent up into CBD, could not put plastic stent due to "kink" in current stent according to GI notes - Pt had PTC 03/04 by IR -->severe obstruction of the proximal common bile duct stent with very challenging recanalization requiring multiple wires and catheters. Uncomplicated biliary stent placement - Repeat ERCP (03/07/18) --> Metallic stent was occluded for the most part with sludge and stones with a noted internal/external stent piercing this clogging and allowing for drainage into the duodenum once he was able to booth through the clogging an 8 mm balloon was attempted but then a CRE balloon with varying sizes up to a 10 Danish was used to clean out the metallic stent within the bile duct and he was able to confirm complete clearance of the stent with good emptying through the stent. - GI discussed the case with IR after the ERCP on 03/07 and it was recommended that the internal/external stent needs to be removed at some point in the near future and once the internal/external stent has been removed we will proceed with a repeat ERCP with the intention of either removing this old metallic stent and replacing it with another or just double stenting. - 03/09/18 Pt underwent percutaneous cholangiogram. External portion of biliary drain was removed. Report showed some small hyperplasia within the distal aspect of the biliary stent but there is a patent channel down to the small bowel internal/external drain was removed. - LFTs and renal function improved from admission - IV Rocephin (03/07 - present) - Blood cultures (03/03) --> 2/4 bottles growing E. coli. - Repeat blood cultures (03/11/18) --> No growth - DC Dilaudid. Continue [place] as needed for pain - DVT prophylaxis with SCDs - On 03/17/18 pts Lipase increased to 1374 and WBC count started rising and then developed increased abd pain, I think pt again has some acute pancreatitis. - Diet was placed back down to clears - Lipase has been trending down slowly, currently at 738 today - WBC count 19.8 on 03/21 - Give a trial of Solu-Medrol 60mg Q6H for noninfectious inflammatory process as the pt has had clinical improvement with this during previous admission under similar circumstances. Unclear if pt has some underlying autoimmune pancreatitis, previous autoimmune workup was negative in 2016. - Laxatives. - Repeat labs in AM - Pt is high risk for readmission. (2) Elevated liver enzymes ICD Codes: R74.8 - Abnormal levels of other serum enzymes Status: Acute Plan: - improved from admission. (3) Acute on chronic kidney disease, stage 3 ICD Codes: N18.3 - Acute worsening of stage 3 chronic kidney disease Status: Chronic Plan: - acute on chronic CKD- stage 3 - number improved from admission. Assessment and Plan Patient examined. Assessment and plan formulated with Guadalupe Monson PA-C. I agree with the above. Trial of IV steroids. This has been helpful with Ms. Larsen during past hospitalization. Likely inflammatory component of pt's pancreatitis. Guadalupe Monson March 21, 2018 10:30 Alexander Eddy DO March 22, 2018 12:02
[2018-03-21 11:32] VITALS: BP 140/63; PULSE 76; RESP 20; TEMP 98.4; O2SAT 100
[2018-03-21] MEDS: PANTOPRAZOLE SODIUM 40 MG VIAL IV PUSH SCH ×2 (11:40→23:51)
[2018-03-21 15:23] VITALS: BP 145/70; PULSE 80; RESP 20; TEMP 98.6; O2SAT 99
[2018-03-21] MEDS: methylPREDNISolone SOD SUCC 125 MG/2 ML VIAL IV PUSH SCH ×2 (18:15→23:51)
[2018-03-21 20:00] VITALS: BP 169/70; PULSE 85; RESP 18; TEMP 99.3; O2SAT 98
[2018-03-21] MEDS: cefTRIAXone INJ 1,000 MG in SODIUM CHLORIDE 0.9% INJ 100 ML IV SCH (20:06)
[2018-03-22] VITALS (7 sets, daily range): BP systolic 125–149; BP diastolic 60–70; PULSE 62–69; RESP 17–18; TEMP 97.2–98.4; O2SAT 96–100
[2018-03-22] MEDS: ACETAMINOPHEN/HYDROcodone 325 MG/10 MG TAB PO PRN ×5 (05:20→21:45)
[2018-03-22] MEDS: SIMETHICONE 125 MG CHEWABLE TAB PO SCH ×3 (05:20→21:44)
[2018-03-22] MEDS: methylPREDNISolone SOD SUCC 125 MG/2 ML VIAL IV PUSH SCH ×4 (05:20→23:47)
[2018-03-22] MEDS: LIPASE/PROTEASE/AMYLASE (12,000/38,000/60,000) CAP PO SCH ×3 (09:10→17:40)
[2018-03-22 09:11] LABS: AUTOMATED NEUTROPHIL # 15.5 TH/MM3 (1.8-7.7); BASOPHIL % 0.3 % (0.0-2.0); EOSINOPHIL % 0.1 % (0.0-4.0); HEMATOCRIT 32.9 % (35.0-46.0); HEMOGLOBIN 10.7 GM/DL (11.6-15.3); LYMPH % 4.4 % (9.0-44.0); LYMPHOCYTE # 0.7 TH/MM3 (1.0-4.8); MEAN CELL VOLUME 85.4 FL (80.0-100.0); MEAN CORPUSCULAR HEMOGLOBIN 27.8 PG (27.0-34.0); MEAN CORPUSCULAR HGB CONC 32.5 % (32.0-36.0); MEAN PLATELET VOLUME 9.1 FL (7.0-11.0); MONO % 0.6 % (0.0-8.0); MONOCYTE # 0.1 TH/MM3 (0-0.9); NEUT % 94.6 % (16.0-70.0); PLATELET COUNT 453 TH/MM3 (150-450); RED BLOOD COUNT 3.85 MIL/MM3 (4.00-5.30); WHITE BLOOD COUNT 16.4 TH/MM3 (4.0-11.0)
[2018-03-22] MEDS: METOPROLOL TARTRATE 25 MG TAB PO SCH ×2 (09:11→21:45)
[2018-03-22] MEDS: DILTIAZEM-CD 240 MG CAP ER PO SCH (09:11)
[2018-03-22 09:38] LABS: AST (GOT) 13 U/L (15-37); BICARBONATE 22.9 MEQ/L (21.0-32.0); BLOOD UREA NITROGEN 41 MG/DL (7-18); CALCIUM 8.7 MG/DL (8.5-10.1); CHLORIDE 101 MEQ/L (98-107); CREATININE 4.26 MG/DL (0.50-1.00); GLOMERULAR FILTRATION RATE 12 ML/MIN (>89); GLUCOSE,RANDOM 182 MG/DL (74-106); SODIUM (NA) 137 MEQ/L (136-145)
[2018-03-22 09:39] LABS: ALT (GPT) 9 U/L (10-53)
[2018-03-22 09:41] LABS: ALKALINE PHOSPHATASE 168 U/L (45-117); TOTAL BILIRUBIN ADULT 0.2 MG/DL (0.2-1.0); TOTAL PROTEIN 8.3 GM/DL (6.4-8.2)
--- NOTE | 2018-03-22 11:10 | HHI.PR ---
Subjective Remarks Less abdominal pain. Afebrile Not eating or drinking much per family at bedside Objective Vitals Vital Signs Date Time Temp Pulse Resp B/P (MAP) Pulse Ox O2 Delivery O2 Flow Rate FiO2 03/22/18 08:00 97.9 69 18 125/60 (81) 98 03/22/18 04:00 98.2 69 18 140/64 (89) 100 03/22/18 00:00 98.2 69 18 149/70 (96) 98 03/21/18 20:00 99.3 85 18 169/70 (103) 98 03/21/18 15:23 98.6 80 20 145/70 (95) 99 03/21/18 11:32 98.4 76 20 140/63 (88) 100 Result Diagram: 03/22/1862903/22/18629 Other Results Laboratory Tests Test 03/21/18 04:48 03/22/18 06:30 White Blood Count 19.8 TH/MM3 16.4 TH/MM3 Red Blood Count 3.84 MIL/MM3 3.85 MIL/MM3 Hemoglobin 10.6 GM/DL 10.7 GM/DL Hematocrit 32.8 % 32.9 % Mean Corpuscular Volume 85.6 FL 85.4 FL Mean Corpuscular Hemoglobin 27.7 PG 27.8 PG Mean Corpuscular Hemoglobin Concent 32.3 % 32.5 % Red Cell Distribution Width 13.7 % 14.0 % Platelet Count 465 TH/MM3 453 TH/MM3 Mean Platelet Volume 8.6 FL 9.1 FL Neutrophils (%) (Auto) 88.2 % 94.6 % Lymphocytes (%) (Auto) 5.1 % 4.4 % Monocytes (%) (Auto) 5.1 % 0.6 % Eosinophils (%) (Auto) 0.6 % 0.1 % Basophils (%) (Auto) 1.0 % 0.3 % Neutrophils # (Auto) 17.5 TH/MM3 15.5 TH/MM3 Lymphocytes # (Auto) 1.0 TH/MM3 0.7 TH/MM3 Monocytes # (Auto) 1.0 TH/MM3 0.1 TH/MM3 Eosinophils # (Auto) 0.1 TH/MM3 0.0 TH/MM3 Basophils # (Auto) 0.2 TH/MM3 0.0 TH/MM3 CBC Comment DIFF FINAL AUTO DIFF Differential Comment AUTO DIFF CONFIRMED Lipase 748 U/L 332 U/L Blood Urea Nitrogen 41 MG/DL Creatinine 4.26 MG/DL Random Glucose 182 MG/DL Total Protein 8.3 GM/DL Albumin 2.0 GM/DL Calcium Level 8.7 MG/DL Alkaline Phosphatase 168 U/L Aspartate Amino Transf (AST/SGOT) 13 U/L Alanine Aminotransferase (ALT/SGPT) 9 U/L Total Bilirubin 0.2 MG/DL Sodium Level 137 MEQ/L Potassium Level 4.9 MEQ/L Chloride Level 101 MEQ/L Carbon Dioxide Level 22.9 MEQ/L Anion Gap 13 MEQ/L Estimat Glomerular Filtration Rate 12 ML/MIN Imaging Last Impressions Cholangiogram 03/09/18 0000 Signed Impressions: Service Date/Time: Friday, March 09, 2018 15:15 - CONCLUSION: 1. Some intimal hyperplasia within the distal aspect of the biliary stent but there is a patent channel down to the small bowel. 2. Internal/external drain was removed. Eliud Lala MD GI Procedure 03/07/18 0000 Signed Impressions: Service Date/Time: Wednesday, March 07, 2018 11:06 - CONCLUSION: ERCP as above. Yunier Santana MD Bile Duct Drainage 03/04/18 0000 Signed Impressions: Service Date/Time: Sunday, March 04, 2018 12:02 - CONCLUSION: 1. Very severe obstruction of the proximal common bile duct stent with very challenging recanalization requiring multiple wires and catheters. 2. Uncomplicated biliary stent placement as above. Plan: Patient may require upsizing of the catheter as only an 8 B[place] catheter could be placed. half-way, consideration may be given to extending the stent centrally and distally although sufficient radial strength to allow for stent deployment in the currently obstructed proximal stent is of significant concern. Bhavin Montemayor MD Abdomen X-Ray 03/04/18 0000 Signed Impressions: Service Date/Time: Sunday, March 04, 2018 16:53 - CONCLUSION: No evidence of obstruction. Tube in the jejunum. Jamie Tabor MD FACR Abdomen/Pelvis CT 03/03/18 0820 Signed Impressions: Service Date/Time: February 09:06 - CONCLUSION: 1. Very mild peripancreatic fluid stranding which may represent low-grade pancreatitis. 2. Common bile duct stent noted in place. There is no evidence of intrahepatic biliary duct dilatation. 3. Significant soft tissue fullness in the bret hepatis surrounding the proximal portion of the stent. 4. Status post cholecystectomy. 5. Gastric balloon of the gastrojejunostomy as migrated into the stomach and needs to be pulled back and secured. 6. Degenerative anterolisthesis at L5-S1 with advanced degenerative changes in the lower lumbar spine. 7. Mild airspace disease left base. Baron Shin MD Objective Remarks General: NAD, AAOx3 Chest: CTA Cardiac: Regular Abd: +BS, soft epigastric tenderness, GJ tube Ext: No edema Procedures - ERCP (03/03/18) --> Multiple stones, migrated metal stent up into CBD, could not put plastic stent due to "kink" in current stent according to GI notes - PTC 03/04 by IR -->severe obstruction of the proximal common bile duct stent with very challenging recanalization requiring multiple wires and catheters. biliary stent placement - Repeat ERCP (03/07/18) --> Metallic stent was occluded for the most part with sludge and stones with a noted internal/external stent piercing this clogging and allowing for drainage into the duodenum once he was able to booth through the clogging an 8 mm balloon was attempted but then a CRE balloon with varying sizes up to a 10 [place] was used to clean out the metallic stent within the bile duct and he was able to confirm complete clearance of the stent with good emptying through the stent. - 03/09/18 Pt underwent percutaneous cholangiogram. External portion of biliary drain was removed. Report showed some small hyperplasia within the distal aspect of the biliary stent but there is a patent channel down to the small bowel internal/external drain was removed. A/P Problem List: (1) Pancreatitis, recurrent ICD Codes: K86.1 - Recurrent pancreatitis Status: Acute Plan: Recurrent Idiopathic pancreatitis Abdominal pain Elevated LFTs Biliary obstruction GNR biliary sepsis - Pt is an 82 y/o female with recurrent idiopathic pancreatitis. Pt was evaluated with ERCP was during her last admission on 06/10/17 --> pt had prior sphincterotomy and a metal stent in the bile duct and were able to obtain easy cannulation of the common bile duct but the stent was clogged up with sludge and stones and so using an 8 mm balloon the stent and the distal CBD were cleaned out then was lavaged and then further cleaning was performed and then an obstructive cholangiogram was finally able to clear the common bile duct of all filling defects. - [place] [facility] [place] with complaints of worsening abdominal pain, N/V for the last 2-3 days. She reports that the pain is the same pain that she has had previously with her pancreatitis. - Her labs in the ED revealed WBC count 22, Cr 2.84/BUN 38, TBili 1.8, AST 646, ALT 461, AlkPhos 349. - CT Abd/pelvis (03/03) --> very mild peripancreatic fluid stranding which may represent low-grade pancreatitis, common bile duct stent noted in place, no evidence of intrahepatic biliary duct dilatation, significant soft tissue fullness in the bret hepatis surrounding the proximal portion of the stent, s/ p cholecystectomy, gastric balloon of the gastrojejunostomy as migrated into the stomach and needs to be pulled back and secured, and degenerative anterolisthesis at L5-S1 with advanced degenerative changes in the lower lumbar spine and mild airspace disease left base. - ERCP (03/03/18) --> Multiple stones, migrated metal stent up into CBD, could not put plastic stent due to "kink" in current stent according to GI notes - Pt had PTC 03/04 by IR -->severe obstruction of the proximal common bile duct stent with very challenging recanalization requiring multiple wires and catheters. Uncomplicated biliary stent placement - Repeat ERCP (03/07/18) --> Metallic stent was occluded for the most part with sludge and stones with a noted internal/external stent piercing this clogging and allowing for drainage into the duodenum once he was able to booth through the clogging an 8 mm balloon was attempted but then a CRE balloon with varying sizes up to a 10 [place] was used to clean out the metallic stent within the bile duct and he was able to confirm complete clearance of the stent with good emptying through the stent. - GI discussed the case with IR after the ERCP on 03/07 and it was recommended that the internal/external stent needs to be removed at some point in the near future and once the internal/external stent has been removed we will proceed with a repeat ERCP with the intention of either removing this old metallic stent and replacing it with another or just double stenting. - 03/09/18 Pt underwent percutaneous cholangiogram. External portion of biliary drain was removed. Report showed some small hyperplasia within the distal aspect of the biliary stent but there is a patent channel down to the small bowel internal/external drain was removed. - LFTs and renal function improved from admission - IV Rocephin (03/07 - present) - Blood cultures (03/03) --> 2/4 bottles growing E. coli. - Repeat blood cultures (03/11/18) --> No growth - [place] as needed for pain - DVT prophylaxis with SCDs - On 03/17/18 pts Lipase increased to 1374 and WBC count started rising and then developed increased abd pain, I think pt again has some acute pancreatitis. - Diet was placed back down to clears - Lipase has been trending down slowly - WBC count 19.8 on 03/21 - Pt started on a trial of Solu-Medrol 60mg Q6H on 03/21/18 for noninfectious inflammatory process as the pt has had clinical improvement with this during previous admission under similar circumstances. Unclear if pt has some underlying autoimmune pancreatitis, previous autoimmune workup was negative in 2016. - Add NovoLog SSI for any steroid hyperglycemia - Lipase normalized on 03/22 to 332. - Her WBC count came down to 16 on 03/22 - Laxatives. - Repeat labs in AM - Pt is high risk for readmission. (2) Elevated liver enzymes ICD Codes: R74.8 - Abnormal levels of other serum enzymes Status: Acute Plan: - improved from admission. (3) Acute on chronic kidney disease, stage 3 ICD Codes: N18.3 - Acute worsening of stage 3 chronic kidney disease Status: Chronic Plan: - Pts renal function worsened to 4.26 on 03/22 from baseline CKD - She has had very poor PO intake - Start some IV fluids today - Recheck labs in AM Assessment and Plan Patient examined. Assessment and plan formulated with Guadalupe Monson PA-C. I agree with the above. Less abdominal pain. Poor PO intake. lipase has normalized. Creatine increased from 2.1 (03/15/18) to 4.26 (03/22/18) start IVFs repeat BMP in AM Guadalupe Monson March 22, 2018 11:10 Alexander Eddy DO March 22, 2018 12:04
[2018-03-22] MEDS: PANTOPRAZOLE SODIUM 40 MG VIAL IV PUSH SCH ×2 (12:10→23:47)
[2018-03-22] MEDS: SODIUM CHLOR 0.9% 1000 ML INJ 1,000 ML IV SCH ×2 (12:11→21:49)
[2018-03-22] MEDS ORDERED: GLUCAGON 1 MG/ML VIAL OTHER PRN (14:30)
[2018-03-22] MEDS ORDERED: DEXTROSE 50% IN WATER 50 ML VIAL(D50) IV PUSH PRN (14:30)
[2018-03-22] MEDS: INSULIN ASPART SUPPLEMENTAL SCALE SQ SCH ×2 (17:41→21:45)
[2018-03-23] MEDS: ACETAMINOPHEN/HYDROcodone 325 MG/10 MG TAB PO PRN ×6 (01:38→22:29)
[2018-03-23 05:00] VITALS: BP 130/57; PULSE 61; RESP 18; TEMP 98.2; O2SAT 97
[2018-03-23] MEDS: SIMETHICONE 125 MG CHEWABLE TAB PO SCH ×3 (06:09→22:29)
[2018-03-23] MEDS: methylPREDNISolone SOD SUCC 125 MG/2 ML VIAL IV PUSH SCH ×4 (06:10→22:32)
[2018-03-23] MEDS: SODIUM CHLOR 0.9% 1000 ML INJ 1,000 ML IV SCH ×2 (06:20→17:46)
[2018-03-23 08:00] VITALS: BP 130/62; PULSE 63; RESP 18; TEMP 97.7; O2SAT 100
[2018-03-23] MEDS: METOPROLOL TARTRATE 25 MG TAB PO SCH ×2 (08:29→22:29)
[2018-03-23] MEDS: DILTIAZEM-CD 240 MG CAP ER PO SCH (08:29)
[2018-03-23] MEDS: INSULIN ASPART SUPPLEMENTAL SCALE SQ SCH ×4 (08:29→22:35)
[2018-03-23] MEDS: LIPASE/PROTEASE/AMYLASE (12,000/38,000/60,000) CAP PO SCH ×3 (08:30→17:45)
[2018-03-23 09:36] LABS: AUTOMATED NEUTROPHIL # 20.9 TH/MM3 (1.8-7.7); BASOPHIL % 0.1 % (0.0-2.0); HEMATOCRIT 30.3 % (35.0-46.0); HEMOGLOBIN 9.7 GM/DL (11.6-15.3); LYMPH % 3.6 % (9.0-44.0); LYMPHOCYTE # 0.8 TH/MM3 (1.0-4.8); MEAN CELL VOLUME 86.6 FL (80.0-100.0); MEAN CORPUSCULAR HEMOGLOBIN 27.7 PG (27.0-34.0); MEAN PLATELET VOLUME 8.8 FL (7.0-11.0); MONO % 0.6 % (0.0-8.0); MONOCYTE # 0.1 TH/MM3 (0-0.9); NEUT % 95.7 % (16.0-70.0); PLATELET COUNT 413 TH/MM3 (150-450); RED CELL DISTRIBUTION WIDTH 13.8 % (11.6-17.2); WHITE BLOOD COUNT 21.9 TH/MM3 (4.0-11.0)
[2018-03-23 10:16] LABS: ALBUMIN 1.9 GM/DL (3.4-5.0); ALKALINE PHOSPHATASE 144 U/L (45-117); ALT (GPT) 9 U/L (10-53); AST (GOT) 9 U/L (15-37); BICARBONATE 21.5 MEQ/L (21.0-32.0); BLOOD UREA NITROGEN 56 MG/DL (7-18); CALCIUM 8.3 MG/DL (8.5-10.1); CHLORIDE 103 MEQ/L (98-107); CREATININE 4.23 MG/DL (0.50-1.00); GLOMERULAR FILTRATION RATE 12 ML/MIN (>89); GLUCOSE,RANDOM 180 MG/DL (74-106); SODIUM (NA) 136 MEQ/L (136-145); TOTAL BILIRUBIN ADULT 0.2 MG/DL (0.2-1.0); TOTAL PROTEIN 7.4 GM/DL (6.4-8.2)
[2018-03-23] MEDS: PANTOPRAZOLE SODIUM 40 MG VIAL IV PUSH SCH ×2 (10:17→22:30)
[2018-03-23 12:00] VITALS: BP 126/65; PULSE 62; RESP 18; TEMP 97.2; O2SAT 100
[2018-03-23] MEDS: SODIUM POLYSTYRENE SULFONATE SUSP 15 GM/60 ML CUP PO ONE ×2 (14:12→15:38)
--- NOTE | 2018-03-23 15:14 | HHI.PR ---
Subjective Remarks Patient smiling, denies abd pain Objective Vitals Vital Signs Date Time Temp Pulse Resp B/P (MAP) Pulse Ox O2 Delivery O2 Flow Rate FiO2 03/23/18 12:00 97.2 62 18 126/65 (85) 100 03/23/18 08:00 97.7 63 18 130/62 (84) 100 03/23/18 05:00 98.2 61 18 130/57 (81) 97 03/22/18 23:50 98.4 63 18 132/63 (86) 100 03/22/18 20:00 98.3 66 18 133/63 (86) 96 03/22/18 16:00 98.1 63 17 132/65 (87) 97 Result Diagram: 03/23/18 0755 03/23/18 0755 Imaging Last Impressions Cholangiogram 03/09/18 0000 Signed Impressions: Service Date/Time: Friday, March 09, 2018 15:15 - CONCLUSION: 1. Some intimal hyperplasia within the distal aspect of the biliary stent but there is a patent channel down to the small bowel. 2. Internal/external drain was removed. Eliud Lala MD GI Procedure 03/07/18 0000 Signed Impressions: Service Date/Time: Wednesday, March 07, 2018 11:06 - CONCLUSION: ERCP as above. Yunier Santana MD Bile Duct Drainage 03/04/18 0000 Signed Impressions: Service Date/Time: Sunday, March 04, 2018 12:02 - CONCLUSION: 1. Very severe obstruction of the proximal common bile duct stent with very challenging recanalization requiring multiple wires and catheters. 2. Uncomplicated biliary stent placement as above. Plan: Patient may require upsizing of the catheter as only an 8 Gren[place] catheter could be placed. 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 Bhavin Montemayor MD Abdomen X-Ray 03/04/18 0000 Signed Impressions: Service Date/Time: Sunday, March 04, 2018 16:53 - CONCLUSION: No evidence of obstruction. Tube in the jejunum. Jamie Tabor MD FACR Abdomen/Pelvis CT 03/03/18 0820 Signed Impressions: Service Date/Time: February 09:06 - CONCLUSION: 1. Very mild peripancreatic fluid stranding which may represent low-grade pancreatitis. 2. Common bile duct stent noted in place. There is no evidence of intrahepatic biliary duct dilatation. 3. Significant soft tissue fullness in the bret hepatis surrounding the proximal portion of the stent. 4. Status post cholecystectomy. 5. Gastric balloon of the gastrojejunostomy as migrated into the stomach and needs to be pulled back and secured. 6. Degenerative anterolisthesis at L5-S1 with advanced degenerative changes in the lower lumbar spine. 7. Mild airspace disease left base. Baron Shin MD Objective Remarks General: NAD, AAOx3 Chest: CTA Cardiac: Regular Abd: +BS, soft non tender Ext: No edema Procedures - ERCP (03/03/18) --> Multiple stones, migrated metal stent up into CBD, could not put plastic stent due to "kink" in current stent according to GI notes - PTC 03/04 by IR -->severe obstruction of the proximal common bile duct stent with very challenging recanalization requiring multiple wires and catheters. biliary stent placement - Repeat ERCP (03/07/18) --> Metallic stent was occluded for the most part with sludge and stones with a noted internal/external stent piercing this clogging and allowing for drainage into the duodenum once he was able to booth through the clogging an 8 mm balloon was attempted but then a CRE balloon with varying sizes up to a 10 Gren[place] was used to clean out the metallic stent within the bile duct and he was able to confirm complete clearance of the stent with good emptying through the stent. - 03/09/18 Pt underwent percutaneous cholangiogram. External portion of biliary drain was removed. Report showed some small hyperplasia within the distal aspect of the biliary stent but there is a patent channel down to the small bowel internal/external drain was removed. A/P Problem List: (1) Pancreatitis, recurrent ICD Codes: K86.1 - Recurrent pancreatitis Status: Acute Plan: Recurrent Idiopathic pancreatitis Abdominal pain Elevated LFTs Biliary obstruction GNR biliary sepsis - Pt is an 82 y/o female with recurrent idiopathic pancreatitis. Pt was evaluated with ERCP was during her last admission on 06/10/17 --> pt had prior sphincterotomy and a metal stent in the bile duct and were able to obtain easy cannulation of the common bile duct but the stent was clogged up with sludge and stones and so using an 8 mm balloon the stent and the distal CBD were cleaned out then was lavaged and then further cleaning was performed and then an obstructive cholangiogram was finally able to clear the common bile duct of all filling defects. - Pt presented to the ED at [facility] [place] on 03/03/18 with complaints of worsening abdominal pain, N/V for the last 2-3 days. She reports that the pain is the same pain that she has had previously with her pancreatitis. - Her labs in the ED revealed WBC count 22, Cr 2.84/BUN 38, TBili 1.8, AST 646, ALT 461, AlkPhos 349. - CT Abd/pelvis (03/03) --> very mild peripancreatic fluid stranding which may represent low-grade pancreatitis, common bile duct stent noted in place, no evidence of intrahepatic biliary duct dilatation, significant soft tissue fullness in the bret hepatis surrounding the proximal portion of the stent, s/ p cholecystectomy, gastric balloon of the gastrojejunostomy as migrated into the stomach and needs to be pulled back and secured, and degenerative anterolisthesis at L5-S1 with advanced degenerative changes in the lower lumbar spine and mild airspace disease left base. - ERCP (03/03/18) --> Multiple stones, migrated metal stent up into CBD, could not put plastic stent due to "kink" in current stent according to GI notes - Pt had PTC 03/04 by IR -->severe obstruction of the proximal common bile duct stent with very challenging recanalization requiring multiple wires and catheters. Uncomplicated biliary stent placement - Repeat ERCP (03/07/18) --> Metallic stent was occluded for the most part with sludge and stones with a noted internal/external stent piercing this clogging and allowing for drainage into the duodenum once he was able to booth through the clogging an 8 mm balloon was attempted but then a CRE balloon with varying sizes up to a 10 [place] was used to clean out the metallic stent within the bile duct and he was able to confirm complete clearance of the stent with good emptying through the stent. - GI discussed the case with IR after the ERCP on 03/07 and it was recommended that the internal/external stent needs to be removed at some point in the near future and once the internal/external stent has been removed we will proceed with a repeat ERCP with the intention of either removing this old metallic stent and replacing it with another or just double stenting. - 03/09/18 Pt underwent percutaneous cholangiogram. External portion of biliary drain was removed. Report showed some small hyperplasia within the distal aspect of the biliary stent but there is a patent channel down to the small bowel internal/external drain was removed. - LFTs and renal function improved from admission - IV Rocephin (03/07 - present) - Blood cultures (03/03) --> 2/4 bottles growing E. coli. - Repeat blood cultures (03/11/18) --> No growth - [place] as needed for pain - DVT prophylaxis with SCDs - On 03/17/18 pts Lipase increased to 1374 and WBC count started rising and then developed increased abd pain, I think pt again has some acute pancreatitis. - Lipase has been trended down - WBC count 19.8 on 03/21 - Pt started on a trial of Solu-Medrol 60mg Q6H on 03/21/18 for noninfectious inflammatory process as the pt has had clinical improvement with this during previous admission under similar circumstances. Unclear if pt has some underlying autoimmune pancreatitis, previous autoimmune workup was negative in 2016. - Add NovoLog SSI for any steroid hyperglycemia - Lipase normalized on 03/22 to 332 -> (03/23) 95 - Her WBC count came down to 16 on 03/22 - advance to full liquid diet - (03/23) Dr. Eddy discussed the case with Patient's daughter Caitlyn (2) Elevated liver enzymes ICD Codes: R74.8 - Abnormal levels of other serum enzymes Status: Acute Plan: - improved from admission. (3) Acute on chronic kidney disease, stage 3 ICD Codes: N18.3 - Acute worsening of stage 3 chronic kidney disease Status: Chronic Plan: - Pts renal function worsened Creatine increased from 2.1 (03/15/18) -> 4.26 (03/22) -> 4.23 (03/23/18) - continue IVFs NS @ 100 ml/H - She has had very poor PO intake - renal US ordered - Recheck labs in AM - if renal function does not improve tomorrow plan to consult nephrology Hyperkalemia - potassium 5.3 - telemetry - Kayexalate x 1 today - recheck in AM Assessment and Plan Patient examined. Assessment and plan formulated with Olga Stackpole PA-C. I agree with the above. Olga Weiss March 23, 2018 15:14 Alexander Eddy DO March 26, 2018 10:44
[2018-03-23 16:00] VITALS: BP 142/69; PULSE 61; RESP 18; TEMP 97.7; O2SAT 100
[2018-03-23 20:00] VITALS: BP 145/67; PULSE 61; RESP 17; TEMP 98.1; O2SAT 99
[2018-03-23 20:08] VITALS: PULSE 55
[2018-03-24] VITALS (9 sets, daily range): BP systolic 131–159; BP diastolic 67–72; PULSE 54–69; RESP 17–19; TEMP 97.3–98.4; O2SAT 97–100
[2018-03-24] MEDS: SODIUM CHLOR 0.9% 1000 ML INJ 1,000 ML IV SCH ×3 (03:15→20:21)
[2018-03-24] MEDS: ACETAMINOPHEN/HYDROcodone 325 MG/10 MG TAB PO PRN ×4 (04:15→20:19)
[2018-03-24 05:25] LABS: AUTOMATED NEUTROPHIL # 16.4 TH/MM3 (1.8-7.7); BASOPHIL % 0.1 % (0.0-2.0); HEMATOCRIT 28.8 % (35.0-46.0); HEMOGLOBIN 9.3 GM/DL (11.6-15.3); LYMPH % 4.8 % (9.0-44.0); LYMPHOCYTE # 0.8 TH/MM3 (1.0-4.8); MEAN CELL VOLUME 85.9 FL (80.0-100.0); MEAN CORPUSCULAR HEMOGLOBIN 27.7 PG (27.0-34.0); MEAN CORPUSCULAR HGB CONC 32.3 % (32.0-36.0); MEAN PLATELET VOLUME 8.4 FL (7.0-11.0); MONO % 1.1 % (0.0-8.0); MONOCYTE # 0.2 TH/MM3 (0-0.9); PLATELET COUNT 365 TH/MM3 (150-450); RED BLOOD COUNT 3.35 MIL/MM3 (4.00-5.30); RED CELL DISTRIBUTION WIDTH 13.8 % (11.6-17.2); WHITE BLOOD COUNT 17.4 TH/MM3 (4.0-11.0)
[2018-03-24] MEDS: methylPREDNISolone SOD SUCC 125 MG/2 ML VIAL IV PUSH SCH ×3 (05:45→20:20)
[2018-03-24 05:47] LABS: ALBUMIN 1.9 GM/DL (3.4-5.0); ALT (GPT) 15 U/L (10-53); AST (GOT) 17 U/L (15-37); BICARBONATE 21.9 MEQ/L (21.0-32.0); BLOOD UREA NITROGEN 55 MG/DL (7-18); CALCIUM 7.8 MG/DL (8.5-10.1); CHLORIDE 106 MEQ/L (98-107); CREATININE 3.42 MG/DL (0.50-1.00); GLOMERULAR FILTRATION RATE 16 ML/MIN (>89); GLUCOSE,RANDOM 144 MG/DL (74-106); SODIUM (NA) 141 MEQ/L (136-145)
[2018-03-24 05:50] LABS: ALKALINE PHOSPHATASE 147 U/L (45-117); TOTAL BILIRUBIN ADULT 0.2 MG/DL (0.2-1.0)
[2018-03-24] MEDS: SIMETHICONE 125 MG CHEWABLE TAB PO SCH ×3 (06:00→22:00)
[2018-03-24 07:31] LABS: BANDS 6 % (0-6); LYMPHOCYTES 3 % (9-44); MONOCYTES 1 % (0-8); MYELOCYTES 1 % (0-0); NEUTROPHIL # MANUAL DIFF 16.7 TH/MM3 (1.8-7.7); POLYS (SEG NEUTROPHILS) 89 % (16-70)
--- NOTE | 2018-03-24 09:06 | RADRPT ---
EXAM DATE/TIME: 03/24/2018 08:16 [place] COMPARISON: No previous studies available for comparison. EXTERNAL COMPARISON : [facility], CT ABDOMEN & PELVIS W/CONTRAST, April 13, 2013 INDICATIONS : Increased BUN/creatinine. MEDICAL HISTORY : Hypercholesterolemia. Pancreatitis. Hernia, hiatal. Chest pain. AFib. HTN. GERD. Duodenal ulcer. Arth ritis. Chronic kidney disease. Measles. SURGICAL HISTORY : Cholecystectomy. Hysterectomy. Hemorrhoidectomy. Bilateral cataracts. Dental implants. Sphincterotomy . Jtube placement. Left TKR. Growth from left wrist removed. ENCOUNTER: Initial ACUITY: 1 day PAIN SCORE: 0/10 LOCATION: Bilateral flank MEASUREMENTS: RIGHT KIDNEY: 8.6 x 4.6 x 4.7 cm LEFT KIDNEY: 7.8 x 3.9 x 3.7 cm FINDINGS: Bilateral small renal cysts ranging in size from 1-2 cm. No hydronephrosis. Bladder is empty and not evaluated. No free fluid identified. Mildly echogenic kidneys. CONCLUSION: 1. Mildly echogenic kidneys characteristic of medical renal disease. Small bilateral renal cysts. No hydronephrosis. Jordon Gloria MD on March 24, 2018 at 8:59 Board Certified Radiologist. This report was verified electronically.
[2018-03-24] MEDS: INSULIN ASPART SUPPLEMENTAL SCALE SQ SCH ×4 (09:09→20:21)
[2018-03-24] MEDS: LIPASE/PROTEASE/AMYLASE (12,000/38,000/60,000) CAP PO SCH ×3 (09:10→17:07)
[2018-03-24] MEDS: DILTIAZEM-CD 240 MG CAP ER PO SCH (09:10)
[2018-03-24] MEDS: METOPROLOL TARTRATE 25 MG TAB PO SCH ×2 (09:10→20:19)
[2018-03-24] MEDS: PANTOPRAZOLE SODIUM 40 MG VIAL IV PUSH SCH ×2 (11:42→23:00)
--- NOTE | 2018-03-24 14:13 | HHI.PR ---
Subjective Remarks Patient reports feeling better today tolerating full liquid diet Objective Vitals Vital Signs Date Time Temp Pulse Resp B/P (MAP) Pulse Ox O2 Delivery O2 Flow Rate FiO2 03/24/18 09:36 61 03/24/18 08:52 98.1 62 19 158/72 (100) 98 03/24/18 07:17 97.3 69 19 159/70 (99) 97 03/24/18 00:00 98.0 65 17 141/67 (91) 100 03/23/18 20:08 55 03/23/18 20:00 98.1 61 17 145/67 (93) 99 03/23/18 16:00 97.7 61 18 142/69 (93) 100 Result Diagram: 03/24/18 0340 03/24/18 0340 Other Results Laboratory Tests Test 03/22/18 06:30 03/23/18 07:55 03/24/18 03:40 White Blood Count 16.4 TH/MM3 21.9 TH/MM3 17.4 TH/MM3 Red Blood Count 3.85 MIL/MM3 3.50 MIL/MM3 3.35 MIL/MM3 Hemoglobin 10.7 GM/DL 9.7 GM/DL 9.3 GM/DL Hematocrit 32.9 % 30.3 % 28.8 % Mean Corpuscular Volume 85.4 FL 86.6 FL 85.9 FL Mean Corpuscular Hemoglobin 27.8 PG 27.7 PG 27.7 PG Mean Corpuscular Hemoglobin Concent 32.5 % 32.0 % 32.3 % Red Cell Distribution Width 14.0 % 13.8 % 13.8 % Platelet Count 453 TH/MM3 413 TH/MM3 365 TH/MM3 Mean Platelet Volume 9.1 FL 8.8 FL 8.4 FL Neutrophils (%) (Auto) 94.6 % 95.7 % 94.0 % Lymphocytes (%) (Auto) 4.4 % 3.6 % 4.8 % Monocytes (%) (Auto) 0.6 % 0.6 % 1.1 % Eosinophils (%) (Auto) 0.1 % 0.0 % 0.0 % Basophils (%) (Auto) 0.3 % 0.1 % 0.1 % Neutrophils # (Auto) 15.5 TH/MM3 20.9 TH/MM3 16.4 TH/MM3 Lymphocytes # (Auto) 0.7 TH/MM3 0.8 TH/MM3 0.8 TH/MM3 Monocytes # (Auto) 0.1 TH/MM3 0.1 TH/MM3 0.2 TH/MM3 Eosinophils # (Auto) 0.0 TH/MM3 0.0 TH/MM3 0.0 TH/MM3 Basophils # (Auto) 0.0 TH/MM3 0.0 TH/MM3 0.0 TH/MM3 CBC Comment AUTO DIFF DIFF FINAL AUTO DIFF Differential Comment AUTO DIFF CONFIRMED FINAL DIFF MANUAL Blood Urea Nitrogen 41 MG/DL 56 MG/DL 55 MG/DL Creatinine 4.26 MG/DL 4.23 MG/DL 3.42 MG/DL Random Glucose 182 MG/DL 180 MG/DL 144 MG/DL Total Protein 8.3 GM/DL 7.4 GM/DL 7.0 GM/DL Albumin 2.0 GM/DL 1.9 GM/DL 1.9 GM/DL Calcium Level 8.7 MG/DL 8.3 MG/DL 7.8 MG/DL Alkaline Phosphatase 168 U/L 144 U/L 147 U/L Aspartate Amino Transf (AST/SGOT) 13 U/L 9 U/L 17 U/L Alanine Aminotransferase (ALT/SGPT) 9 U/L 9 U/L 15 U/L Total Bilirubin 0.2 MG/DL 0.2 MG/DL 0.2 MG/DL Sodium Level 137 MEQ/L 136 MEQ/L 141 MEQ/L Potassium Level 4.9 MEQ/L 5.3 MEQ/L 4.9 MEQ/L Chloride Level 101 MEQ/L 103 MEQ/L 106 MEQ/L Carbon Dioxide Level 22.9 MEQ/L 21.5 MEQ/L 21.9 MEQ/L Anion Gap 13 MEQ/L 12 MEQ/L 13 MEQ/L Estimat Glomerular Filtration Rate 12 ML/MIN 12 ML/MIN 16 ML/MIN Lipase 332 U/L 95 U/L Differential Total Cells Counted 100 Neutrophils % (Manual) 89 % Band Neutrophils % 6 % Lymphocytes % 3 % Monocytes % 1 % Neutrophils # (Manual) 16.7 TH/MM3 Myelocytes 1 % Platelet Estimate NORMAL Platelet Morphology Comment NORMAL Imaging Last Impressions Cholangiogram 03/09/18 0000 Signed Impressions: Service Date/Time: Friday, March 09, 2018 15:15 - CONCLUSION: 1. Some intimal hyperplasia within the distal aspect of the biliary stent but there is a patent channel down to the small bowel. 2. Internal/external drain was removed. Eliud Lala MD GI Procedure 03/07/18 0000 Signed Impressions: Service Date/Time: Wednesday, March 07, 2018 11:06 - CONCLUSION: ERCP as above. Yunier Santana MD Bile Duct Drainage 03/04/18 0000 Signed Impressions: Service Date/Time: Sunday, March 04, 2018 12:02 - CONCLUSION: 1. Very severe obstruction of the proximal common bile duct stent with very challenging recanalization requiring multiple wires and catheters. 2. Uncomplicated biliary stent placement as above. Plan: Patient may require upsizing of the catheter as only an 8 Palestinian catheter could be placed. intermediate, consideration may be given to extending the stent centrally and distally although sufficient radial strength to allow for stent deployment in the currently obstructed proximal stent is of significant concern. Bhavin Montemayor MD Abdomen X-Ray 03/04/18 0000 Signed Impressions: Service Date/Time: Sunday, March 04, 2018 16:53 - CONCLUSION: No evidence of obstruction. Tube in the jejunum. Jamie Tabor MD FACR Abdomen/Pelvis CT 03/03/18 0820 Signed Impressions: Service Date/Time: February 09:06 - CONCLUSION: 1. Very mild peripancreatic fluid stranding which may represent low-grade pancreatitis. 2. Common bile duct stent noted in place. There is no evidence of intrahepatic biliary duct dilatation. 3. Significant soft tissue fullness in the bret hepatis surrounding the proximal portion of the stent. 4. Status post cholecystectomy. 5. Gastric balloon of the gastrojejunostomy as migrated into the stomach and needs to be pulled back and secured. 6. Degenerative anterolisthesis at L5-S1 with advanced degenerative changes in the lower lumbar spine. 7. Mild airspace disease left base. Baron Shin MD Objective Remarks General: NAD, AAOx3 Chest: CTA Cardiac: Regular Abd: +BS, soft non tender Ext: No edema Procedures - ERCP (03/03/18) --> Multiple stones, migrated metal stent up into CBD, could not put plastic stent due to "kink" in current stent according to GI notes - PTC 03/04 by IR -->severe obstruction of the proximal common bile duct stent with very challenging recanalization requiring multiple wires and catheters. biliary stent placement - Repeat ERCP (03/07/18) --> Metallic stent was occluded for the most part with sludge and stones with a noted internal/external stent piercing this clogging and allowing for drainage into the duodenum once he was able to booth through the clogging an 8 mm balloon was attempted but then a CRE balloon with varying sizes up to a 10 Palestinian was used to clean out the metallic stent within the bile duct and he was able to confirm complete clearance of the stent with good emptying through the stent. - 03/09/18 Pt underwent percutaneous cholangiogram. External portion of biliary drain was removed. Report showed some small hyperplasia within the distal aspect of the biliary stent but there is a patent channel down to the small bowel internal/external drain was removed. A/P Problem List: (1) Pancreatitis, recurrent ICD Codes: K86.1 - Recurrent pancreatitis Status: Acute Plan: Recurrent Idiopathic pancreatitis Abdominal pain Elevated LFTs Biliary obstruction GNR biliary sepsis - Pt is an 82 y/o female with recurrent idiopathic pancreatitis. Pt was evaluated with ERCP was during her last admission on 06/10/17 --> pt had prior sphincterotomy and a metal stent in the bile duct and were able to obtain easy cannulation of the common bile duct but the stent was clogged up with sludge and stones and so using an 8 mm balloon the stent and the distal CBD were cleaned out then was lavaged and then further cleaning was performed and then an obstructive cholangiogram was finally able to clear the common bile duct of all filling defects. - Pt presented to the ED at [facility] [place] on 03/03/18 with complaints of worsening abdominal pain, N/V for the last 2-3 days. She reports that the pain is the same pain that she has had previously with her pancreatitis. - Her labs in the ED revealed WBC count 22, Cr 2.84/BUN 38, TBili 1.8, AST 646, ALT 461, AlkPhos 349. - CT Abd/pelvis (03/03) --> very mild peripancreatic fluid stranding which may represent low-grade pancreatitis, common bile duct stent noted in place, no evidence of intrahepatic biliary duct dilatation, significant soft tissue fullness in the bret hepatis surrounding the proximal portion of the stent, s/ p cholecystectomy, gastric balloon of the gastrojejunostomy as migrated into the stomach and needs to be pulled back and secured, and degenerative anterolisthesis at L5-S1 with advanced degenerative changes in the lower lumbar spine and mild airspace disease left base. - ERCP (03/03/18) --> Multiple stones, migrated metal stent up into CBD, could not put plastic stent due to "kink" in current stent according to GI notes - Pt had PTC 03/04 by IR -->severe obstruction of the proximal common bile duct stent with very challenging recanalization requiring multiple wires and catheters. Uncomplicated biliary stent placement - Repeat ERCP (03/07/18) --> Metallic stent was occluded for the most part with sludge and stones with a noted internal/external stent piercing this clogging and allowing for drainage into the duodenum once he was able to booth through the clogging an 8 mm balloon was attempted but then a CRE balloon with varying sizes up to a 10 Palestinian was used to clean out the metallic stent within the bile duct and he was able to confirm complete clearance of the stent with good emptying through the stent. - GI discussed the case with IR after the ERCP on 03/07 and it was recommended that the internal/external stent needs to be removed at some point in the near future and once the internal/external stent has been removed we will proceed with a repeat ERCP with the intention of either removing this old metallic stent and replacing it with another or just double stenting. - 03/09/18 Pt underwent percutaneous cholangiogram. External portion of biliary drain was removed. Report showed some small hyperplasia within the distal aspect of the biliary stent but there is a patent channel down to the small bowel internal/external drain was removed. - LFTs and renal function improved from admission - IV Rocephin (03/07 - present) - Blood cultures (03/03) --> 2/4 bottles growing E. coli. - Repeat blood cultures (03/11/18) --> No growth - [place] as needed for pain - DVT prophylaxis with SCDs - On 03/17/18 pts Lipase increased to 1374 and WBC count started rising and then developed increased abd pain, I think pt again has some acute pancreatitis. - Lipase has been trended down - WBC count 19.8 on 03/21 - Pt started on a trial of Solu-Medrol 60mg Q6H on 03/21/18 for noninfectious inflammatory process as the pt has had clinical improvement with this during previous admission under similar circumstances. Unclear if pt has some underlying autoimmune pancreatitis, previous autoimmune workup was negative in 2016. - decrease Solu medrol to 60 mg IV BID (03/24) - Add NovoLog SSI for any steroid hyperglycemia - Lipase normalized on 03/22 to 332 -> (03/23) 95 - Her WBC count came down to 16 on 03/22 -continue full liquid diet - (03/23) Dr. Eddy discussed the case with Patient's daughter Caitlyn (2) Elevated liver enzymes ICD Codes: R74.8 - Abnormal levels of other serum enzymes Status: Acute Plan: - improved from admission. (3) Acute on chronic kidney disease, stage 3 ICD Codes: N18.3 - Acute worsening of stage 3 chronic kidney disease Status: Chronic Plan: - Pts renal function worsened Creatine increased from 2.1 (03/15/18) -> 4.26 (03/22) -> 4.23 (03/23/18) -> 3.42 (03/24/18) - continue IVFs NS @ 100 ml/H - She has had very poor PO intake - renal US: Mildly echogenic kidneys characteristic of medical renal disease. Small bilateral renal cysts. No hydronephrosis. - Recheck BMP in AM - if renal function worsens plan to consult nephrology Hyperkalemia - potassium 5.3 -> 4.9 (03/24) - telemetry - Kayexalate x 1 (03/23) Assessment and Plan Patient examined. Assessment and plan formulated with Olga Weiss PA-C. I agree with the above. Olga Weiss March 24, 2018 14:13 Alexander Eddy DO March 26, 2018 10:45
[2018-03-25] VITALS: BP 157/77; PULSE 58; RESP 18; TEMP 97.5; O2SAT 97
[2018-03-25] MEDS: ACETAMINOPHEN/HYDROcodone 325 MG/10 MG TAB PO PRN ×4 (02:33→23:40)
[2018-03-25] MEDS: PANTOPRAZOLE SODIUM 40 MG VIAL IV PUSH SCH ×3 (02:34→23:00)
[2018-03-25] MEDS: SIMETHICONE 125 MG CHEWABLE TAB PO SCH (06:00)
[2018-03-25 06:41] VITALS: BP 158/77; PULSE 60; RESP 18; TEMP 98.3; O2SAT 97
[2018-03-25 08:00] VITALS: BP 173/77; PULSE 51; RESP 19; TEMP 97.7; O2SAT 97
[2018-03-25] MEDS: INSULIN ASPART SUPPLEMENTAL SCALE SQ SCH ×4 (08:00→21:00)
[2018-03-25 08:03] LABS: BICARBONATE 20.8 MEQ/L (21.0-32.0); CALCIUM 7.1 MG/DL (8.5-10.1); CREATININE 2.9 MG/DL (0.50-1.00)
[2018-03-25 08:17] LABS: CALCIUM-PROTEIN CORRECTED 7.5 MG/DL (8.5-10.1); TOTAL PROTEIN 6.4 GM/DL (6.4-8.2)
[2018-03-25] MEDS: methylPREDNISolone SOD SUCC 125 MG/2 ML VIAL IV PUSH SCH ×2 (08:38→21:00)
[2018-03-25] MEDS: METOPROLOL TARTRATE 25 MG TAB PO SCH ×2 (08:38→21:00)
[2018-03-25] MEDS: DILTIAZEM-CD 240 MG CAP ER PO SCH (08:38)
[2018-03-25] MEDS: LIPASE/PROTEASE/AMYLASE (12,000/38,000/60,000) CAP PO SCH ×3 (08:38→17:38)
[2018-03-25] MEDS: SODIUM CHLOR 0.9% 1000 ML INJ 1,000 ML IV SCH (08:40)
[2018-03-25] MEDS ORDERED: SIMETHICONE 125 MG CHEWABLE TAB PO PRN (11:15)
[2018-03-25] MEDS ORDERED: cloNIDine HCL 0.1 MG TAB PO PRN (11:15)
[2018-03-25] MEDS: SODIUM CHLOR 0.45% 1000 ML INJ 1,000 ML IV SCH ×2 (11:15→23:10)
[2018-03-25 12:00] VITALS: BP 140/67; PULSE 55; RESP 17; TEMP 98.6; O2SAT 98
[2018-03-25 16:00] VITALS: BP 145/71; PULSE 56; RESP 18; TEMP 98.5; O2SAT 98
--- NOTE | 2018-03-25 16:17 | HHI.PR ---
Subjective Remarks Patient feeling well, offers no complaints denies abd pain tolerating full liquid diet Objective Vitals Vital Signs Date Time Temp Pulse Resp B/P (MAP) Pulse Ox O2 Delivery O2 Flow Rate FiO2 03/25/18 08:00 97.7 51 19 173/77 (109) 97 03/25/18 06:41 98.3 60 18 158/77 (104) 97 03/25/18 00:00 97.5 58 18 157/77 (103) 97 03/24/18 20:14 55 03/24/18 20:00 97.7 56 18 155/72 (99) 98 03/24/18 16:48 54 Result Diagram: 03/24/18 0340 03/25/18 0600 Other Results Laboratory Tests Test 03/23/18 07:55 03/24/18 03:40 03/25/18 06:00 White Blood Count 21.9 TH/MM3 17.4 TH/MM3 Red Blood Count 3.50 MIL/MM3 3.35 MIL/MM3 Hemoglobin 9.7 GM/DL 9.3 GM/DL Hematocrit 30.3 % 28.8 % Mean Corpuscular Volume 86.6 FL 85.9 FL Mean Corpuscular Hemoglobin 27.7 PG 27.7 PG Mean Corpuscular Hemoglobin Concent 32.0 % 32.3 % Red Cell Distribution Width 13.8 % 13.8 % Platelet Count 413 TH/MM3 365 TH/MM3 Mean Platelet Volume 8.8 FL 8.4 FL Neutrophils (%) (Auto) 95.7 % 94.0 % Lymphocytes (%) (Auto) 3.6 % 4.8 % Monocytes (%) (Auto) 0.6 % 1.1 % Eosinophils (%) (Auto) 0.0 % 0.0 % Basophils (%) (Auto) 0.1 % 0.1 % Neutrophils # (Auto) 20.9 TH/MM3 16.4 TH/MM3 Lymphocytes # (Auto) 0.8 TH/MM3 0.8 TH/MM3 Monocytes # (Auto) 0.1 TH/MM3 0.2 TH/MM3 Eosinophils # (Auto) 0.0 TH/MM3 0.0 TH/MM3 Basophils # (Auto) 0.0 TH/MM3 0.0 TH/MM3 CBC Comment DIFF FINAL AUTO DIFF Differential Comment FINAL DIFF MANUAL Blood Urea Nitrogen 56 MG/DL 55 MG/DL 53 MG/DL Creatinine 4.23 MG/DL 3.42 MG/DL 2.90 MG/DL Random Glucose 180 MG/DL 144 MG/DL 152 MG/DL Total Protein 7.4 GM/DL 7.0 GM/DL 6.4 GM/DL Albumin 1.9 GM/DL 1.9 GM/DL Calcium Level 8.3 MG/DL 7.8 MG/DL 7.1 MG/DL Alkaline Phosphatase 144 U/L 147 U/L Aspartate Amino Transf (AST/SGOT) 9 U/L 17 U/L Alanine Aminotransferase (ALT/SGPT) 9 U/L 15 U/L Total Bilirubin 0.2 MG/DL 0.2 MG/DL Sodium Level 136 MEQ/L 141 MEQ/L 142 MEQ/L Potassium Level 5.3 MEQ/L 4.9 MEQ/L 4.6 MEQ/L Chloride Level 103 MEQ/L 106 MEQ/L 109 MEQ/L Carbon Dioxide Level 21.5 MEQ/L 21.9 MEQ/L 20.8 MEQ/L Anion Gap 12 MEQ/L 13 MEQ/L 12 MEQ/L Estimat Glomerular Filtration Rate 12 ML/MIN 16 ML/MIN 19 ML/MIN Lipase 95 U/L Differential Total Cells Counted 100 Neutrophils % (Manual) 89 % Band Neutrophils % 6 % Lymphocytes % 3 % Monocytes % 1 % Neutrophils # (Manual) 16.7 TH/MM3 Myelocytes 1 % Platelet Estimate NORMAL Platelet Morphology Comment NORMAL Protein Corrected Calcium 7.5 MG/DL Imaging Last Impressions Cholangiogram 03/09/18 0000 Signed Impressions: Service Date/Time: Friday, March 09, 2018 15:15 - CONCLUSION: 1. Some intimal hyperplasia within the distal aspect of the biliary stent but there is a patent channel down to the small bowel. 2. Internal/external drain was removed. Eliud Lala MD GI Procedure 03/07/18 0000 Signed Impressions: Service Date/Time: Wednesday, March 07, 2018 11:06 - CONCLUSION: ERCP as above. Yunier Santana MD Bile Duct Drainage 03/04/18 0000 Signed Impressions: Service Date/Time: Sunday, March 04, 2018 12:02 - CONCLUSION: 1. Very severe obstruction of the proximal common bile duct stent with very challenging recanalization requiring multiple wires and catheters. 2. Uncomplicated biliary stent placement as above. Plan: Patient may require upsizing of the catheter as only an 8 Namibian catheter could be placed. 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 Bhavin Montemayor MD Abdomen X-Ray 03/04/18 0000 Signed Impressions: Service Date/Time: Sunday, March 04, 2018 16:53 - CONCLUSION: No evidence of obstruction. Tube in the jejunum. Jamie Tabor MD FACR Abdomen/Pelvis CT 03/03/18 0820 Signed Impressions: Service Date/Time: February 09:06 - CONCLUSION: 1. Very mild peripancreatic fluid stranding which may represent low-grade pancreatitis. 2. Common bile duct stent noted in place. There is no evidence of intrahepatic biliary duct dilatation. 3. Significant soft tissue fullness in the bret hepatis surrounding the proximal portion of the stent. 4. Status post cholecystectomy. 5. Gastric balloon of the gastrojejunostomy as migrated into the stomach and needs to be pulled back and secured. 6. Degenerative anterolisthesis at L5-S1 with advanced degenerative changes in the lower lumbar spine. 7. Mild airspace disease left base. Baron Shin MD Objective Remarks General: NAD, AAOx3 Chest: CTA Cardiac: Regular Abd: +BS, soft non tender Ext: No edema Procedures - ERCP (03/03/18) --> Multiple stones, migrated metal stent up into CBD, could not put plastic stent due to "kink" in current stent according to GI notes - PTC 03/04 by IR -->severe obstruction of the proximal common bile duct stent with very challenging recanalization requiring multiple wires and catheters. biliary stent placement - Repeat ERCP (03/07/18) --> Metallic stent was occluded for the most part with sludge and stones with a noted internal/external stent piercing this clogging and allowing for drainage into the duodenum once he was able to booth through the clogging an 8 mm balloon was attempted but then a CRE balloon with varying sizes up to a 10 Namibian was used to clean out the metallic stent within the bile duct and he was able to confirm complete clearance of the stent with good emptying through the stent. - 03/09/18 Pt underwent percutaneous cholangiogram. External portion of biliary drain was removed. Report showed some small hyperplasia within the distal aspect of the biliary stent but there is a patent channel down to the small bowel internal/external drain was removed. A/P Problem List: (1) Pancreatitis, recurrent ICD Codes: K86.1 - Recurrent pancreatitis Status: Acute Plan: Recurrent Idiopathic pancreatitis Abdominal pain Elevated LFTs Biliary obstruction GNR biliary sepsis - Pt is an 82 y/o female with recurrent idiopathic pancreatitis. Pt was evaluated with ERCP was during her last admission on 06/10/17 --> pt had prior sphincterotomy and a metal stent in the bile duct and were able to obtain easy cannulation of the common bile duct but the stent was clogged up with sludge and stones and so using an 8 mm balloon the stent and the distal CBD were cleaned out then was lavaged and then further cleaning was performed and then an obstructive cholangiogram was finally able to clear the common bile duct of all filling defects. - Pt [place] [facility] [place] with complaints of worsening abdominal pain, N/V for the last 2-3 days. She reports that the pain is the same pain that she has had previously with her pancreatitis. - Her labs in the ED revealed WBC count 22, Cr 2.84/BUN 38, TBili 1.8, AST 646, ALT 461, AlkPhos 349. - CT Abd/pelvis (03/03) --> very mild peripancreatic fluid stranding which may represent low-grade pancreatitis, common bile duct stent noted in place, no evidence of intrahepatic biliary duct dilatation, significant soft tissue fullness in the bret hepatis surrounding the proximal portion of the stent, s/ p cholecystectomy, gastric balloon of the gastrojejunostomy as migrated into the stomach and needs to be pulled back and secured, and degenerative anterolisthesis at L5-S1 with advanced degenerative changes in the lower lumbar spine and mild airspace disease left base. - ERCP (03/03/18) --> Multiple stones, migrated metal stent up into CBD, could not put plastic stent due to "kink" in current stent according to GI notes - Pt had PTC 03/04 by IR -->severe obstruction of the proximal common bile duct stent with very challenging recanalization requiring multiple wires and catheters. Uncomplicated biliary stent placement - Repeat ERCP (03/07/18) --> Metallic stent was occluded for the most part with sludge and stones with a noted internal/external stent piercing this clogging and allowing for drainage into the duodenum once he was able to booth through the clogging an 8 mm balloon was attempted but then a CRE balloon with varying sizes up to a 10 Namibian was used to clean out the metallic stent within the bile duct and he was able to confirm complete clearance of the stent with good emptying through the stent. - GI discussed the case with IR after the ERCP on 03/07 and it was recommended that the internal/external stent needs to be removed at some point in the near future and once the internal/external stent has been removed we will proceed with a repeat ERCP with the intention of either removing this old metallic stent and replacing it with another or just double stenting. - 03/09/18 Pt underwent percutaneous cholangiogram. External portion of biliary drain was removed. Report showed some small hyperplasia within the distal aspect of the biliary stent but there is a patent channel down to the small bowel internal/external drain was removed. - LFTs and renal function improved from admission - IV Rocephin (03/07 - present) - Blood cultures (03/03) --> 2/4 bottles growing E. coli. - Repeat blood cultures (03/11/18) --> No growth - [place] as needed for pain - DVT prophylaxis with SCDs - On 03/17/18 pts Lipase increased to 1374 and WBC count started rising and then developed increased abd pain, I think pt again has some acute pancreatitis. - Lipase has been trended down - WBC count 19.8 on 03/21 - Pt started on a trial of Solu-Medrol 60mg Q6H on 03/21/18 for noninfectious inflammatory process as the pt has had clinical improvement with this during previous admission under similar circumstances. Unclear if pt has some underlying autoimmune pancreatitis, previous autoimmune workup was negative in 2016. - decrease Solu medrol to 60 mg IV BID (03/24) - Add NovoLog SSI for any steroid hyperglycemia - Lipase normalized on 03/22 to 332 -> (03/23) 95 - Her WBC count came down to 16 on 03/22 - Advance to soft diet (03/26) - (03/23) Dr. Eddy discussed the case with Patient's daughter Caitlyn (2) Elevated liver enzymes ICD Codes: R74.8 - Abnormal levels of other serum enzymes Status: Acute Plan: - improved from admission. (3) Acute on chronic kidney disease, stage 3 ICD Codes: N18.3 - Acute worsening of stage 3 chronic kidney disease Status: Chronic Plan: - Pts renal function worsened Creatine increased from 2.1 (03/15/18) -> 4.26 (03/22) -> 4.23 (03/23/18) -> 3.42 (03/24/18) -> 2.90 (03/25/18) - change IVFs 1/2NS @ 84 ml/H - She has had very poor PO intake - renal US: Mildly echogenic kidneys characteristic of medical renal disease. Small bilateral renal cysts. No hydronephrosis. - Recheck BMP in AM - if renal function worsens plan to consult nephrology Hyperkalemia - potassium 5.3 -> 4.9 (03/24) - telemetry - Kayexalate x 1 (03/23) Assessment and Plan Patient examined. Assessment and plan formulated with Olga Weiss PA-C. I agree with the above. Pt continues to improve. Will advance to soft diet. change prn narcotics from IV to PO. anticipate d/c to home in 2-4 days. Olga Weiss March 25, 2018 16:17 Alexander Eddy DO March 26, 2018 10:46
[2018-03-25 20:00] VITALS: BP 158/76; PULSE 55; PULSE 65; RESP 18; O2SAT 98
[2018-03-26] VITALS: BP 146/76; PULSE 63; RESP 18; O2SAT 98
[2018-03-26] MEDS: ACETAMINOPHEN/HYDROcodone 325 MG/10 MG TAB PO PRN ×3 (05:29→18:38)
[2018-03-26] MEDS: INSULIN ASPART SUPPLEMENTAL SCALE SQ SCH ×4 (07:56→20:49)
[2018-03-26 07:57] LABS: BICARBONATE 21.5 MEQ/L (21.0-32.0); CALCIUM 7.7 MG/DL (8.5-10.1); CREATININE 2.71 MG/DL (0.50-1.00)
[2018-03-26 08:00] VITALS: BP_SYST 151; BP_SYST 165; BP_DIAS 83; BP_DIAS 96; PULSE 51; PULSE 54; RESP 20; TEMP 97.6; TEMP 98; O2SAT 98
[2018-03-26] MEDS: methylPREDNISolone SOD SUCC 125 MG/2 ML VIAL IV PUSH SCH (09:20)
[2018-03-26] MEDS: DILTIAZEM-CD 240 MG CAP ER PO SCH (09:20)
[2018-03-26] MEDS: METOPROLOL TARTRATE 25 MG TAB PO SCH ×2 (09:20→20:49)
[2018-03-26] MEDS: LIPASE/PROTEASE/AMYLASE (12,000/38,000/60,000) CAP PO SCH ×3 (09:20→16:53)
[2018-03-26] MEDS: SODIUM CHLOR 0.45% 1000 ML INJ 1,000 ML IV SCH ×3 (11:05→22:41)
[2018-03-26] MEDS: PANTOPRAZOLE SODIUM 40 MG VIAL IV PUSH SCH ×2 (11:48→22:41)
[2018-03-26 12:41] VITALS: BP 151/96; PULSE 54; RESP 20; TEMP 97.6; O2SAT 98
--- NOTE | 2018-03-26 16:10 | HHI.PR ---
Subjective Remarks Patient able to tolerated PO denies abd pain Objective Vitals Vital Signs Date Time Temp Pulse Resp B/P (MAP) Pulse Ox O2 Delivery O2 Flow Rate FiO2 03/26/18 12:41 97.6 54 20 151/96 (114) 98 03/26/18 08:00 98.0 51 20 165/83 (110) 98 03/26/18 00:00 63 18 146/76 (99) 98 03/25/18 20:00 55 03/25/18 20:00 65 18 158/76 (103) 98 Result Diagram: 03/24/18 0340 03/26/18 0432 Imaging Last Impressions Cholangiogram 03/09/18 0000 Signed Impressions: Service Date/Time: Friday, March 09, 2018 15:15 - CONCLUSION: 1. Some intimal hyperplasia within the distal aspect of the biliary stent but there is a patent channel down to the small bowel. 2. Internal/external drain was removed. Eliud Lala MD GI Procedure 03/07/18 0000 Signed Impressions: Service Date/Time: Wednesday, March 07, 2018 11:06 - CONCLUSION: ERCP as above. Yunier Santana MD Bile Duct Drainage 03/04/18 0000 Signed Impressions: Service Date/Time: Sunday, March 04, 2018 12:02 - CONCLUSION: 1. Very severe obstruction of the proximal common bile duct stent with very challenging recanalization requiring multiple wires and catheters. 2. Uncomplicated biliary stent placement as above. Plan: Patient may require upsizing of the catheter as only an 8 Irish catheter could be placed. 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 Bhavin Montemayor MD Abdomen X-Ray 03/04/18 0000 Signed Impressions: Service Date/Time: Sunday, March 04, 2018 16:53 - CONCLUSION: No evidence of obstruction. Tube in the jejunum. Jamie Tabor MD FACR Abdomen/Pelvis CT 03/03/18 0820 Signed Impressions: Service Date/Time: February 09:06 - CONCLUSION: 1. Very mild peripancreatic fluid stranding which may represent low-grade pancreatitis. 2. Common bile duct stent noted in place. There is no evidence of intrahepatic biliary duct dilatation. 3. Significant soft tissue fullness in the bret hepatis surrounding the proximal portion of the stent. 4. Status post cholecystectomy. 5. Gastric balloon of the gastrojejunostomy as migrated into the stomach and needs to be pulled back and secured. 6. Degenerative anterolisthesis at L5-S1 with advanced degenerative changes in the lower lumbar spine. 7. Mild airspace disease left base. Baron Shin MD Objective Remarks General: NAD, AAOx3 Chest: CTA Cardiac: Regular Abd: +BS, soft non tender Ext: No edema Procedures - ERCP (03/03/18) --> Multiple stones, migrated metal stent up into CBD, could not put plastic stent due to "kink" in current stent according to GI notes - PTC 03/04 by IR -->severe obstruction of the proximal common bile duct stent with very challenging recanalization requiring multiple wires and catheters. biliary stent placement - Repeat ERCP (03/07/18) --> Metallic stent was occluded for the most part with sludge and stones with a noted internal/external stent piercing this clogging and allowing for drainage into the duodenum once he was able to booth through the clogging an 8 mm balloon was attempted but then a CRE balloon with varying sizes up to a 10 Irish was used to clean out the metallic stent within the bile duct and he was able to confirm complete clearance of the stent with good emptying through the stent. - 03/09/18 Pt underwent percutaneous cholangiogram. External portion of biliary drain was removed. Report showed some small hyperplasia within the distal aspect of the biliary stent but there is a patent channel down to the small bowel internal/external drain was removed. A/P Problem List: (1) Pancreatitis, recurrent ICD Codes: K86.1 - Recurrent pancreatitis Status: Acute Plan: Recurrent Idiopathic pancreatitis Abdominal pain Elevated LFTs Biliary obstruction GNR biliary sepsis - Pt is an 82 y/o female with recurrent idiopathic pancreatitis. Pt was evaluated with ERCP was during her last admission on 06/10/17 --> pt had prior sphincterotomy and a metal stent in the bile duct and were able to obtain easy cannulation of the common bile duct but the stent was clogged up with sludge and stones and so using an 8 mm balloon the stent and the distal CBD were cleaned out then was lavaged and then further cleaning was performed and then an obstructive cholangiogram was finally able to clear the common bile duct of all filling defects. - Pt presented to the ED at [facility] on 03/03/18 with complaints of worsening abdominal pain, N/V for the last 2-3 days. She reports that the pain is the same pain that she has had previously with her pancreatitis. - Her labs in the ED revealed WBC count 22, Cr 2.84/BUN 38, TBili 1.8, AST 646, ALT 461, AlkPhos 349. - CT Abd/pelvis (03/03) --> very mild peripancreatic fluid stranding which may represent low-grade pancreatitis, common bile duct stent noted in place, no evidence of intrahepatic biliary duct dilatation, significant soft tissue fullness in the bret hepatis surrounding the proximal portion of the stent, s/ p cholecystectomy, gastric balloon of the gastrojejunostomy as migrated into the stomach and needs to be pulled back and secured, and degenerative anterolisthesis at L5-S1 with advanced degenerative changes in the lower lumbar spine and mild airspace disease left base. - ERCP (03/03/18) --> Multiple stones, migrated metal stent up into CBD, could not put plastic stent due to "kink" in current stent according to GI notes - Pt had PTC 03/04 by IR -->severe obstruction of the proximal common bile duct stent with very challenging recanalization requiring multiple wires and catheters. Uncomplicated biliary stent placement - Repeat ERCP (03/07/18) --> Metallic stent was occluded for the most part with sludge and stones with a noted internal/external stent piercing this clogging and allowing for drainage into the duodenum once he was able to booth through the clogging an 8 mm balloon was attempted but then a CRE balloon with varying sizes up to a 10 Irish was used to clean out the metallic stent within the bile duct and he was able to confirm complete clearance of the stent with good emptying through the stent. - GI discussed the case with IR after the ERCP on 03/07 and it was recommended that the internal/external stent needs to be removed at some point in the near future and once the internal/external stent has been removed we will proceed with a repeat ERCP with the intention of either removing this old metallic stent and replacing it with another or just double stenting. - 03/09/18 Pt underwent percutaneous cholangiogram. External portion of biliary drain was removed. Report showed some small hyperplasia within the distal aspect of the biliary stent but there is a patent channel down to the small bowel internal/external drain was removed. - LFTs and renal function improved from admission - IV Rocephin (03/07 - present) - Blood cultures (03/03) --> 2/4 bottles growing E. coli. - Repeat blood cultures (03/11/18) --> No growth - [place] as needed for pain - DVT prophylaxis with SCDs - On 03/17/18 pts Lipase increased to 1374 and WBC count started rising and then developed increased abd pain, I think pt again has some acute pancreatitis. - Lipase has been trended down - WBC count 19.8 on 03/21 - Pt started on a trial of Solu-Medrol 60mg Q6H on 03/21/18 for noninfectious inflammatory process as the pt has had clinical improvement with this during previous admission under similar circumstances. Unclear if pt has some underlying autoimmune pancreatitis, previous autoimmune workup was negative in 2016. - decrease Solu medrol to 60 mg IV BID (03/24) ---> (03/26) change to PO prednisone 30 mg PO BID - Add NovoLog SSI for any steroid hyperglycemia - Lipase normalized on 03/22 to 332 -> (03/23) 95 - Her WBC count came down to 16 on 03/22 - Advance to soft diet (03/26) - (03/23) Dr. Eddy discussed the case with Patient's daughter Caitlyn (2) Elevated liver enzymes ICD Codes: R74.8 - Abnormal levels of other serum enzymes Status: Acute Plan: - improved from admission. (3) Acute on chronic kidney disease, stage 3 ICD Codes: N18.3 - Acute worsening of stage 3 chronic kidney disease Status: Chronic Plan: - Pts renal function worsened Creatine increased from 2.1 (03/15/18) -> 4.26 (03/22) -> 4.23 (03/23/18) -> 3.42 (03/24/18) -> 2.90 (03/25/18) -> 2.71 (03/26/18) - IVFs 1/2NS @ 84 ml/H - PO intake improving - renal US: Mildly echogenic kidneys characteristic of medical renal disease. Small bilateral renal cysts. No hydronephrosis. - Recheck BMP in AM - if renal function worsens plan to consult nephrology Hyperkalemia - potassium 5.3 -> 4.9 (03/24) - telemetry - Kayexalate x 1 (03/23) Olga Weiss March 26, 2018 16:10
[2018-03-26 20:00] VITALS: PULSE 50
[2018-03-26 20:07] VITALS: BP 162/101; PULSE 51; RESP 20; TEMP 98; O2SAT 100
[2018-03-26] MEDS: predniSONE 10 MG TAB PO SCH (20:48)
[2018-03-27] VITALS (7 sets, daily range): BP systolic 141–175; BP diastolic 72–78; PULSE 49–60; RESP 17–18; TEMP 97.5–98.6; O2SAT 98–100
[2018-03-27] MEDS: ACETAMINOPHEN/HYDROcodone 325 MG/10 MG TAB PO PRN ×4 (00:41→18:08)
[2018-03-27 06:29] LABS: BICARBONATE 22.4 MEQ/L (21.0-32.0); CALCIUM 7.7 MG/DL (8.5-10.1); CREATININE 2.39 MG/DL (0.50-1.00)
[2018-03-27] MEDS: INSULIN ASPART SUPPLEMENTAL SCALE SQ SCH ×3 (07:53→16:36)
[2018-03-27] MEDS: DILTIAZEM-CD 240 MG CAP ER PO SCH (08:00)
[2018-03-27] MEDS: METOPROLOL TARTRATE 25 MG TAB PO SCH (08:00)
[2018-03-27] MEDS: predniSONE 10 MG TAB PO SCH (08:01)
[2018-03-27] MEDS: LIPASE/PROTEASE/AMYLASE (12,000/38,000/60,000) CAP PO SCH ×2 (10:11→13:55)
[2018-03-27] MEDS ORDERED: NIFE60TA8 PO (10:22)
[2018-03-27] MEDS ORDERED: Nystatin Liq SWISH-SWAL (10:22)
--- NOTE | 2018-03-27 10:25 | HHI.DCPOC ---
Discharge Care Plan Diagnosis: (1) Oral candidiasis (2) Sinus tachycardia (3) Intractable abdominal pain (4) Acute renal insufficiency (5) Elevated LFTs (6) Pancreatitis, recurrent (7) Duodenitis Goals to Promote Your Health * To prevent worsening of your condition and complications * To maintain your health at the optimal level Directions to Meet Your Goals Take your medications as prescribed Follow your dietary instruction Follow activity as directed Keep your appointments as scheduled Take your immunizations and boosters as scheduled If your symptoms worsen call your PCP, if no PCP go to Urgent Care Center or Emergency Room Smoking is Dangerous to Your Health. Avoid second hand smoke Call the 24-hour hour crisis hotline for domestic abuse at Olga Weiss March 27, 2018 10:25
--- NOTE | 2018-03-27 10:29 | HHI.DS ---
Discharge Summary Admission Date Mar 03, 2018 at 10:01 Discharge Date: March 28, 2018 Admitting Diagnosis Recurrent pancreatitis, abdominal pain, leukocytosis, elevated LFTs (1) Pancreatitis, recurrent Diagnosis: Principal ICD Codes: K86.1 - Recurrent pancreatitis Status: Acute (2) Elevated liver enzymes Diagnosis: Principal ICD Codes: R74.8 - Abnormal levels of other serum enzymes Status: Acute (3) Acute on chronic kidney disease, stage 3 Diagnosis: Principal ICD Codes: N18.3 - Acute worsening of stage 3 chronic kidney disease Status: Chronic Consultants Dr. Schwartz, GI Dr. Montemayor, IR Dr. Lala, IR Procedures - ERCP (03/03/18) --> Multiple stones, migrated metal stent up into CBD, could not put plastic stent due to "kink" in current stent according to GI notes - PTC 03/04 by IR -->severe obstruction of the proximal common bile duct stent with very challenging recanalization requiring multiple wires and catheters. biliary stent placement - Repeat ERCP (03/07/18) --> Metallic stent was occluded for the most part with sludge and stones with a noted internal/external stent piercing this clogging and allowing for drainage into the duodenum once he was able to booth through the clogging an 8 mm balloon was attempted but then a CRE balloon with varying sizes up to a 10 Polish was used to clean out the metallic stent within the bile duct and he was able to confirm complete clearance of the stent with good emptying through the stent. - 03/09/18 Pt underwent percutaneous cholangiogram. External portion of biliary drain was removed. Report showed some small hyperplasia within the distal aspect of the biliary stent but there is a patent channel down to the small bowel internal/external drain was removed. Brief History Ms. Larsen is an 82 y/o AAF with recurrent idiopathic pancreatitis. She has been hospitalized numerous times for issues with pain control related to recurrent pancreatitis. Her last admission was in 05/2017 and she had biliary obstruction at that time. Pt was evaluated with ERCP was during her last admission on 06/10/[address] Ortega which revealed the patient had prior sphincterotomy and a metal stent in the bile duct and were able to obtain easy cannulation of the common bile duct but the stent was clogged up with sludge and stones and so using an 8 mm balloon the stent and the distal CBD were cleaned out then was lavaged and then further cleaning was performed and then an obstructive cholangiogram was finally able to clear the common bile duct of all filling defects. Pt presented to the ED at [facility] [place] on 03/03/18 with complaints of worsening abdominal pain for the last 2-3 days. She relates the pain to food intake which gradually worsens after eating. She has also had some vomiting in the last 24 hours. Pt has been having normal BMs. Denies any fevers or chills. She reports that the pain is the same pain that she has had previously with her pancreatitis. She has been using [place] at night for the pain. Her labs in the ED revealed WBC count 22, Cr 2.84/BUN 38, TBili 1.8, AST 646, ALT 461, AlkPhos 349. She had a CT Abd/pelvis in the ED which noted very mild peripancreatic fluid stranding which may represent low-grade pancreatitis, common bile duct stent noted in place, no evidence of intrahepatic biliary duct dilatation, significant soft tissue fullness in the bret hepatis surrounding the proximal portion of the stent, s/p cholecystectomy, gastric balloon of the gastrojejunostomy as migrated into the stomach and needs to be pulled back and secured, and degenerative anterolisthesis at L5-S1 with advanced degenerative changes in the lower lumbar spine and mild airspace disease left base. CBC/BMP: 03/24/18 0340 03/27/18 0525 Significant Findings Laboratory Tests Test 03/25/18 06:00 03/26/18 04:32 03/27/18 05:25 Blood Urea Nitrogen 53 MG/DL (7-18) 53 MG/DL (7-18) 46 MG/DL (7-18) Creatinine 2.90 MG/DL (0.50-1.00) 2.71 MG/DL (0.50-1.00) 2.39 MG/DL (0.50-1.00) Random Glucose 152 MG/DL (74-106) 131 MG/DL (74-106) 152 MG/DL (74-106) Calcium Level 7.1 MG/DL (8.5-10.1) 7.7 MG/DL (8.5-10.1) 7.7 MG/DL (8.5-10.1) Chloride Level 109 MEQ/L (98-107) 108 MEQ/L (98-107) Carbon Dioxide Level 20.8 MEQ/L (21.0-32.0) Estimat Glomerular Filtration Rate 19 ML/MIN (>89) 20 ML/MIN (>89) 24 ML/MIN (>89) Protein Corrected Calcium 7.5 MG/DL (8.5-10.1) Imaging Last Impressions Renal Ultrasound 03/24/18 0000 Signed Impressions: Service Date/Time: March 08:16 - CONCLUSION: 1. Mildly echogenic kidneys characteristic of medical renal disease. Small bilateral renal cysts. No hydronephrosis. Jordon Gloria MD Abdomen X-Ray 03/14/18 0800 Signed Impressions: Service Date/Time: Wednesday, March 14, 2018 10:29 - CONCLUSION: No dilated loops of small or large bowel. Stephan Crawford MD Cholangiogram 03/09/18 0000 Signed Impressions: Service Date/Time: Friday, March 09, 2018 15:15 - CONCLUSION: 1. Some intimal hyperplasia within the distal aspect of the biliary stent but there is a patent channel down to the small bowel. 2. Internal/external drain was removed. Eliud Lala MD GI Procedure 03/07/18 0000 Signed Impressions: Service Date/Time: Wednesday, March 07, 2018 11:06 - CONCLUSION: ERCP as above. Yunier Santana MD Bile Duct Drainage 03/04/18 0000 Signed Impressions: Service Date/Time: Sunday, March 04, 2018 12:02 - CONCLUSION: 1. Very severe obstruction of the proximal common bile duct stent with very challenging recanalization requiring multiple wires and catheters. 2. Uncomplicated biliary stent placement as above. Plan: Patient may require upsizing of the catheter as only an 8 Polish catheter could be placed. 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 Bhavin Montemayor MD Abdomen/Pelvis CT 03/03/18 0820 Signed Impressions: Service Date/Time: February 09:06 - CONCLUSION: 1. Very mild peripancreatic fluid stranding which may represent low-grade pancreatitis. 2. Common bile duct stent noted in place. There is no evidence of intrahepatic biliary duct dilatation. 3. Significant soft tissue fullness in the bret hepatis surrounding the proximal portion of the stent. 4. Status post cholecystectomy. 5. Gastric balloon of the gastrojejunostomy as migrated into the stomach and needs to be pulled back and secured. 6. Degenerative anterolisthesis at L5-S1 with advanced degenerative changes in the lower lumbar spine. 7. Mild airspace disease left base. Baron Shin MD PE at Discharge General: NAD, AAOx3 Chest: CTA Cardiac: Regular Abd: +BS, soft non tender Ext: No edema Hospital Course Recurrent Idiopathic pancreatitis Abdominal pain Elevated LFTs Biliary obstruction GNR biliary sepsis - Pt is an 82 y/o female with recurrent idiopathic pancreatitis. Pt was evaluated with ERCP was during her last admission on 06/10/17 --> pt had prior sphincterotomy and a metal stent in the bile duct and were able to obtain easy cannulation of the common bile duct but the stent was clogged up with sludge and stones and so using an 8 mm balloon the stent and the distal CBD were cleaned out then was lavaged and then further cleaning was performed and then an obstructive cholangiogram was finally able to clear the common bile duct of all filling defects. - Pt presented to the ED at [facility] [place] on 03/03/18 with complaints of worsening abdominal pain, N/V for the last 2-3 days. She reports that the pain is the same pain that she has had previously with her pancreatitis. - Her labs in the ED revealed WBC count 22, Cr 2.84/BUN 38, TBili 1.8, AST 646, ALT 461, AlkPhos 349. - CT Abd/pelvis (03/03) --> very mild peripancreatic fluid stranding which may represent low-grade pancreatitis, common bile duct stent noted in place, no evidence of intrahepatic biliary duct dilatation, significant soft tissue fullness in the bret hepatis surrounding the proximal portion of the stent, s/ p cholecystectomy, gastric balloon of the gastrojejunostomy as migrated into the stomach and needs to be pulled back and secured, and degenerative anterolisthesis at L5-S1 with advanced degenerative changes in the lower lumbar spine and mild airspace disease left base. - ERCP (03/03/18) --> Multiple stones, migrated metal stent up into CBD, could not put plastic stent due to "kink" in current stent according to GI notes - Pt had PTC 03/04 by IR -->severe obstruction of the proximal common bile duct stent with very challenging recanalization requiring multiple wires and catheters. Uncomplicated biliary stent placement - Repeat ERCP (03/07/18) --> Metallic stent was occluded for the most part with sludge and stones with a noted internal/external stent piercing this clogging and allowing for drainage into the duodenum once he was able to booth through the clogging an 8 mm balloon was attempted but then a CRE balloon with varying sizes up to a 10 Polish was used to clean out the metallic stent within the bile duct and he was able to confirm complete clearance of the stent with good emptying through the stent. - GI discussed the case with IR after the ERCP on 03/07 and it was recommended that the internal/external stent needs to be removed at some point in the near future and once the internal/external stent has been removed we will proceed with a repeat ERCP with the intention of either removing this old metallic stent and replacing it with another or just double stenting. - 03/09/18 Pt underwent percutaneous cholangiogram. External portion of biliary drain was removed. Report showed some small hyperplasia within the distal aspect of the biliary stent but there is a patent channel down to the small bowel internal/external drain was removed. - LFTs and renal function improved from admission - IV Rocephin (03/07 - present) - Blood cultures (03/03) --> 2/4 bottles growing E. coli. - Repeat blood cultures (03/11/18) --> No growth - [place] as needed for pain - DVT prophylaxis with SCDs - On 03/17/18 pts Lipase increased to 1374 and WBC count started rising and then developed increased abd pain, I think pt again has some acute pancreatitis. - Lipase has been trended down - WBC count 19.8 on 03/21 - Pt started on a trial of Solu-Medrol 60mg Q6H on 03/21/18 for noninfectious inflammatory process as the pt has had clinical improvement with this during previous admission under similar circumstances. Unclear if pt has some underlying autoimmune pancreatitis, previous autoimmune workup was negative in 2016. - decrease Solu medrol to 60 mg IV BID (03/24) ---> (03/26) change to PO prednisone 30 mg PO BID - Add NovoLog SSI for any steroid hyperglycemia - Lipase normalized on 03/22 to 332 -> (03/23) 95 - Her WBC count came down to 16 on 03/22 - Advance to soft diet (03/26) - (03/23) and (03/26)Dr. Eddy discussed the case with Patient's daughter Caitlyn Elevated liver enzymes - improved from admission. Acute on chronic kidney disease, stage 3 - Pts renal function worsened Creatine increased from 2.1 (03/15/18) -> 4.26 (03/22) -> 4.23 (03/23/18) -> 3.42 (03/24/18) -> 2.90 (03/25/18) -> 2.71 (03/26/18) -> 2.39 (03/27/18) - IVFs 1/2NS @ 84 ml/H - PO intake improving - renal US: Mildly echogenic kidneys characteristic of medical renal disease. Small bilateral renal cysts. No hydronephrosis. - Recheck BMP in AM - if renal function worsens plan to consult nephrology Hyperkalemia -resolved - potassium 5.3 -> 4.9 (03/24) - telemetry - Kayexalate x 1 (03/23) Pt Condition on Discharge: Stable Discharge Disposition: Discharge to SNF Discharge Instructions DIET: Follow Instructions for: Heart Healthy Diet Activities you can perform: Weight Bearing as Diane Follow up Referrals: Gastroenterology - 1 Week with Chula Schwartz MD PCP Follow-up - [address] Peterson New Medications: Prednisone (Prednisone) 10 Mg Tab 10 MG PO DIRECTED for steroid taper, #35 TAB 0 Refills Take 20 mg by mouth twice a day for five days, then take 20 mg by mouth once a day for five days, then take 10 mg by mouth once a day for five days, then stop Nifedipine ER 24 HR (Nifedipine ER 24 HR) 60 Mg Tab 60 MG PO Q12HR for blood pressure, #60 TAB 0 Refills [Nystatin Liq] () 5 ML SUSP 5 ML SWISH-SWAL QID for thrush for 14 Days, #1 BOTTLE 0 Refills Continued Medications: Hydrocodone-Acetaminophen ([place]) 5-325 mg Tab 1 TAB PO Q4H PRN for PAIN, #30 TAB 0 Refills (This prescription has been renewed ) Magnesium Hydroxide ([place] Milk of Magnesia) 311 Mg Chew 2 TAB CHEW DAILY PRN for INDIGESTION OR UPSET STOMACH, #1 BOTTLE 0 Refills Meclizine (Meclizine) 25 Mg Tab 25 MG PO TID PRN for VERTIGO for 5 Days, TAB 0 Refills Metoprolol Tartrate (Metoprolol Tartrate) 25 Mg Tab 25 MG PO BID, #60 TAB 0 Refills Pancrelipase (Creon) 12,000-38,000-60,000 Units Cap 1 CAP PO TIDPC for Digestive Aid, #90 CAP 0 Refills Pantoprazole (Pantoprazole) 40 Mg Tab 40 MG PO BID for Reflux, #30 TAB 0 Refills Sucralfate (Sucralfate) 1 Gm Tab 1 GM PO TID for Duodenal ulcer, #90 TAB 0 Refills on empty stomach Discontinued Medications: Diltiazem ER 24 HR (Cartia Xt) 120 Mg Caper 120 MG PO DAILY, #30 CAP 0 Refills Additional Information Patient examined. Assessment and plan formulated with Olga Weiss PA-C. I agree with the above. Pt tolerating PO intake. Pt's abdominal pain has improved. Pt developed oral candidiasis --> start Nystatin s/s Case d/w pt and daughter Caitlyn by phone. All questions answered to the best of my ability. Orders written to discharge to SNF in AM 03/26/18 Pt to f/u with Gastroenterology in 1 week. Olga Weiss March 27, 2018 10:29 Alexander Eddy DO March 29, 2018 10:42
--- NOTE | 2018-03-27 10:34 | HHI.PR ---
Subjective Remarks Patient reports feeling Nurse reports white patches noted on oral mucosa Objective Vitals Vital Signs Date Time Temp Pulse Resp B/P (MAP) Pulse Ox O2 Delivery O2 Flow Rate FiO2 03/27/18 07:55 98.4 60 17 160/76 (104) 100 03/27/18 04:18 49 03/27/18 04:00 97.5 56 17 157/76 (103) 98 03/27/18 00:41 58 03/27/18 00:00 98.6 51 18 141/72 (95) 99 03/26/18 20:07 98.0 51 20 162/101 (121) 100 03/26/18 20:00 50 03/26/18 12:41 97.6 54 20 151/96 (114) 98 Result Diagram: 03/24/18 0340 03/27/18 0525 Imaging Last Impressions Cholangiogram 03/09/18 0000 Signed Impressions: Service Date/Time: Friday, March 09, 2018 15:15 - CONCLUSION: 1. Some intimal hyperplasia within the distal aspect of the biliary stent but there is a patent channel down to the small bowel. 2. Internal/external drain was removed. Eliud Lala MD GI Procedure 03/07/18 0000 Signed Impressions: Service Date/Time: Wednesday, March 07, 2018 11:06 - CONCLUSION: ERCP as above. Yunier Santana MD Bile Duct Drainage 03/04/18 0000 Signed Impressions: Service Date/Time: Sunday, March 04, 2018 12:02 - CONCLUSION: 1. Very severe obstruction of the proximal common bile duct stent with very challenging recanalization requiring multiple wires and catheters. 2. Uncomplicated biliary stent placement as above. Plan: Patient may require upsizing of the catheter as only an 8 [place] catheter could be placed. 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 Bhavin Montemayor MD Abdomen X-Ray 03/04/18 0000 Signed Impressions: Service Date/Time: Sunday, March 04, 2018 16:53 - CONCLUSION: No evidence of obstruction. Tube in the jejunum. Jamie Tabor MD FACR Abdomen/Pelvis CT 03/03/18 0820 Signed Impressions: Service Date/Time: February 09:06 - CONCLUSION: 1. Very mild peripancreatic fluid stranding which may represent low-grade pancreatitis. 2. Common bile duct stent noted in place. There is no evidence of intrahepatic biliary duct dilatation. 3. Significant soft tissue fullness in the bret hepatis surrounding the proximal portion of the stent. 4. Status post cholecystectomy. 5. Gastric balloon of the gastrojejunostomy as migrated into the stomach and needs to be pulled back and secured. 6. Degenerative anterolisthesis at L5-S1 with advanced degenerative changes in the lower lumbar spine. 7. Mild airspace disease left base. Baron Shin MD Objective Remarks General: NAD, AAOx3 Chest: CTA Cardiac: Regular Abd: +BS, soft non tender Ext: No edema Procedures - ERCP (03/03/18) --> Multiple stones, migrated metal stent up into CBD, could not put plastic stent due to "kink" in current stent according to GI notes - PTC 03/04 by IR -->severe obstruction of the proximal common bile duct stent with very challenging recanalization requiring multiple wires and catheters. biliary stent placement - Repeat ERCP (03/07/18) --> Metallic stent was occluded for the most part with sludge and stones with a noted internal/external stent piercing this clogging and allowing for drainage into the duodenum once he was able to booth through the clogging an 8 mm balloon was attempted but then a CRE balloon with varying sizes up to a 10 [place] was used to clean out the metallic stent within the bile duct and he was able to confirm complete clearance of the stent with good emptying through the stent. - 03/09/18 Pt underwent percutaneous cholangiogram. External portion of biliary drain was removed. Report showed some small hyperplasia within the distal aspect of the biliary stent but there is a patent channel down to the small bowel internal/external drain was removed. A/P Problem List: (1) Pancreatitis, recurrent ICD Codes: K86.1 - Recurrent pancreatitis Status: Acute Plan: Recurrent Idiopathic pancreatitis Abdominal pain Elevated LFTs Biliary obstruction GNR biliary sepsis - Pt is an 82 y/o female with recurrent idiopathic pancreatitis. Pt was evaluated with ERCP was during her last admission on 06/10/17 --> pt had prior sphincterotomy and a metal stent in the bile duct and were able to obtain easy cannulation of the common bile duct but the stent was clogged up with sludge and stones and so using an 8 mm balloon the stent and the distal CBD were cleaned out then was lavaged and then further cleaning was performed and then an obstructive cholangiogram was finally able to clear the common bile duct of all filling defects. - Pt presented to the ED at [facility] [place] on 03/03/18 with complaints of worsening abdominal pain, N/V for the last 2-3 days. She reports that the pain is the same pain that she has had previously with her pancreatitis. - Her labs in the ED revealed WBC count 22, Cr 2.84/BUN 38, TBili 1.8, AST 646, ALT 461, AlkPhos 349. - CT Abd/pelvis (03/03) --> very mild peripancreatic fluid stranding which may represent low-grade pancreatitis, common bile duct stent noted in place, no evidence of intrahepatic biliary duct dilatation, significant soft tissue fullness in the bret hepatis surrounding the proximal portion of the stent, s/ p cholecystectomy, gastric balloon of the gastrojejunostomy as migrated into the stomach and needs to be pulled back and secured, and degenerative anterolisthesis at L5-S1 with advanced degenerative changes in the lower lumbar spine and mild airspace disease left base. - ERCP (03/03/18) --> Multiple stones, migrated metal stent up into CBD, could not put plastic stent due to "kink" in current stent according to GI notes - Pt had PTC 03/04 by IR -->severe obstruction of the proximal common bile duct stent with very challenging recanalization requiring multiple wires and catheters. Uncomplicated biliary stent placement - Repeat ERCP (03/07/18) --> Metallic stent was occluded for the most part with sludge and stones with a noted internal/external stent piercing this clogging and allowing for drainage into the duodenum once he was able to booth through the clogging an 8 mm balloon was attempted but then a CRE balloon with varying sizes up to a 10 [place] was used to clean out the metallic stent within the bile duct and he was able to confirm complete clearance of the stent with good emptying through the stent. - GI discussed the case with IR after the ERCP on 03/07 and it was recommended that the internal/external stent needs to be removed at some point in the near future and once the internal/external stent has been removed we will proceed with a repeat ERCP with the intention of either removing this old metallic stent and replacing it with another or just double stenting. - 03/09/18 Pt underwent percutaneous cholangiogram. External portion of biliary drain was removed. Report showed some small hyperplasia within the distal aspect of the biliary stent but there is a patent channel down to the small bowel internal/external drain was removed. - LFTs and renal function improved from admission - IV Rocephin (03/07 - present) - Blood cultures (03/03) --> 2/4 bottles growing E. coli. - Repeat blood cultures (03/11/18) --> No growth - [place] as needed for pain - DVT prophylaxis with SCDs - On 03/17/18 pts Lipase increased to 1374 and WBC count started rising and then developed increased abd pain, I think pt again has some acute pancreatitis. - Lipase has been trended down - WBC count 19.8 on 03/21 - Pt started on a trial of Solu-Medrol 60mg Q6H on 03/21/18 for noninfectious inflammatory process as the pt has had clinical improvement with this during previous admission under similar circumstances. Unclear if pt has some underlying autoimmune pancreatitis, previous autoimmune workup was negative in 2016. - decrease Solu medrol to 60 mg IV BID (03/24) ---> (03/26) change to PO prednisone 30 mg PO BID - Add NovoLog SSI for any steroid hyperglycemia - Lipase normalized on 03/22 to 332 -> (03/23) 95 - Her WBC count came down to 16 on 03/22 - Advance to soft diet (03/26) - (03/23) and (03/26) Dr. Eddy discussed the case with Patient's daughter Caitlyn - patient doing well plan to DC to SNF in AM (2) Elevated liver enzymes ICD Codes: R74.8 - Abnormal levels of other serum enzymes Status: Acute Plan: - improved from admission. (3) Acute on chronic kidney disease, stage 3 ICD Codes: N18.3 - Acute worsening of stage 3 chronic kidney disease Status: Chronic Plan: - Pts renal function worsened Creatine increased from 2.1 (03/15/18) -> 4.26 (03/22) -> 4.23 (03/23/18) -> 3.42 (03/24/18) -> 2.90 (03/25/18) -> 2.71 (03/26/18) - IVFs 1/2NS @ 84 ml/H - PO intake improving - renal US: Mildly echogenic kidneys characteristic of medical renal disease. Small bilateral renal cysts. No hydronephrosis. - Recheck BMP in AM - if renal function worsens plan to consult nephrology Hyperkalemia - potassium 5.3 -> 4.9 (03/24) - telemetry - Kayexalate x 1 (03/23) (4) Oral vianca ICD Codes: B37.0 - Candidal stomatitis Plan: Nystatin S&S x 14 days Assessment and Plan Patient examined. Assessment and plan formulated with Olga Weiss PA-C. I agree with the above. Olga Weiss March 27, 2018 10:34 Alexander Eddy DO March 29, 2018 10:40
[2018-03-27] MEDS ORDERED: NORC5TAB PO (10:36)
[2018-03-27] MEDS ORDERED: PRED10 PO (10:37)
[2018-03-27] MEDS: PANTOPRAZOLE SODIUM 40 MG VIAL IV PUSH SCH (11:15)
[2018-03-27] MEDS: NYSTATIN SUSP 500,000 U/5 ML CUP SWISH-SWAL SCH ×2 (11:16→13:55)
[2018-03-27] MEDS ORDERED: NIFEdipine 60 MG SUSTAINED RELEASE TAB PO SCH (21:00)
== END 2018-03-27 18:10 | DRG 871 ==
LOC: NEPE 05:54 → NEDA 10:01 → N05A 19:11
PROVIDERS: ADMIT Hospitalist; ATTEND Hospitalist
PROC: 0FC98ZZ Extirpation of Matter from Common Bile Duct, Via Natural or Artificial Opening Endoscopic (ICD-10-PCS; 2018-03-03)
PROC: BF101ZZ Fluoroscopy of Bile Ducts using Low Osmolar Contrast (ICD-10-PCS; 2018-03-03)
PROC: BF101ZZ Fluoroscopy of Bile Ducts using Low Osmolar Contrast (ICD-10-PCS; principal; 2018-03-04)
PROC: 0F793DZ Dilation of Common Bile Duct with Intraluminal Device, Percutaneous Approach (ICD-10-PCS; 2018-03-04)
PROC: 0FC98ZZ Extirpation of Matter from Common Bile Duct, Via Natural or Artificial Opening Endoscopic (ICD-10-PCS; 2018-03-07)
DX: A41.50 Gram-negative sepsis, unspecified (principal); K85.10 Biliary acute pancreatitis without necrosis or infection; N17.9 Acute kidney failure, unspecified; E87.5 Hyperkalemia; B37.0 Candidal stomatitis; N18.3 Chronic kidney disease, stage 3 (moderate); T85.590A Other mechanical complication of bile duct prosthesis, initial encounter; K31.84 Gastroparesis; T85.520A Displacement of bile duct prosthesis, initial encounter; K91.86 Retained cholelithiasis following cholecystectomy; N28.1 Cyst of kidney, acquired; Y83.6 Removal of other organ (partial) (total) as the cause of abnormal reaction of the patient, or of later complication, without mention of misadventure at the time of the procedure; K21.9 Gastro-esophageal reflux disease without esophagitis; I12.9 Hypertensive chronic kidney disease with stage 1 through stage 4 chronic kidney disease, or unspecified chronic kidney disease; F41.9 Anxiety disorder, unspecified; E78.00 Pure hypercholesterolemia, unspecified; M43.16 Spondylolisthesis, lumbar region; M47.816 Spondylosis without myelopathy or radiculopathy, lumbar region; K44.9 Diaphragmatic hernia without obstruction or gangrene; Z96.652 Presence of left artificial knee joint; M19.90 Unspecified osteoarthritis, unspecified site; Z93.4 Other artificial openings of gastrointestinal tract status
CPT/HCPCS: 47537; 47540; 74018; 74019; 74176; 74330; 76775; 76937; 80048; 80053; 80076; 81001; 82948; 83605; 83690; 83735; 84155; 85007; 85025; 85027; 85610; 87040; 87077; 87186; 87205; 87493; 96361; 96365; 96375; C1726; C1729; C1769; C1887; C1894; C2625; C9113; J0330; J0696; J1100; J1170; J1610; J1815; J1956; J2175; J2270; J2405; J2543; J2710; J2930; J3010; J7030; J7120; J7512; Q9967

== ENCOUNTER 2018-04-24 03:14 | Emergency (ER) | payer MEDICARE ==
[~2018-04-24] VITALS: Ht 167.6 cm; Wt 70.0 kg
[~2018-04-24 03:14] MED LIST changes: -CART120C PO; +NIFE60TA8 PO; +Nystatin Liq SWISH-SWAL; +PRED10 PO
[2018-04-24 03:18] VITALS: BP 103/61; PULSE 129; RESP 18; TEMP 98.3; O2SAT 100
[2018-04-24] MEDS ORDERED: ONDANSETRON ODT 4 MG TAB PO ONE (03:45)
[2018-04-24] MEDS ORDERED: MORPHINE SULFATE 4 MG/ML INJ IV PUSH ONE (03:45)
--- NOTE | 2018-04-24 03:54 | PD ---
HPI Chief Complaint: Abdominal pain Time Seen by Provider: 03:27 Travel History International Travel<30 days: No Contact w/Intl Traveler<30days: No Traveled to known affect area: No History of Present Illness HPI 82yo F with PMH of recurrent pancreatitis here with c/o epigastric, left upper abdominal pain for 3 days. Associated with nausea and vomiting. Denies any fever, chest pain, sob, diarrhea, dysuria, hematuria. Pt was just admitted 03/03 to 03/28/18 and had ERCP x2 as well as percutaneous cholangiogram. Pt has a G-tube in place. Had normal bowel movement. PFSH Past Medical History Asthma: No Atrial Fibrillation: Yes (HX YES PER PATIENT "NO") Autoimmune Disease: No Blood Disorders: No Anxiety: No Depression: No Heart Rhythm Problems: Yes Cancer: No Cardiovascular Problems: No High Cholesterol: Yes Chemotherapy: No Chest Pain: Yes Congestive Heart Failure: No COPD: No Cerebrovascular Accident: No Diabetes: No Diminished Hearing: No Endocrine: No Gastrointestinal Disorders: Yes (HIATAL HERNIA, gerd, duodenal ulcer) GERD: Yes Glaucoma: No Genitourinary: No Headaches: No Hepatitis: No Hiatal Hernia: Yes Hypertension: Yes Immune Disorder: No Implanted Vascular Access Dvce: Yes Kidney Stones: No Musculoskeletal: Yes (arthritis,neck and back problems) Neurologic: No Psychiatric: No Reproductive: No Respiratory: No Migraines: No Pancreatitis: Yes (chronic) Radiation Therapy: No Renal Failure: No Seizures: No Sickle Cell Disease: No Sleep Apnea: No Thyroid Disease: No Ulcer: No Tetanus Vaccination: Unknown Influenza Vaccination: Yes ?: Not LMP: menapause Menopausal: Yes : 2 Para: 2 Past Surgical History Abdominal Surgery: Yes (cholecystectomy, sphincterotomy, Jtube placed) Arteriovenous Shunt: No Body Medical Devices: j tube Cardiac Surgery: No Cholecystectomy: Yes (2012) Ear Surgery: No Endocrine Surgery: No Eye Surgery: Yes (bilat cat) Genitourinary Surgery: Yes (HEMORRHOIDECTOMY) Gynecologic Surgery: No Hysterectomy: Yes Insulin Pump: No Joint Replacement: Yes (TKR LEFT KNEE) Oral Surgery: No Pacemaker: No Thoracic Surgery: No Other Surgery: Yes (GROWTH REMOVED FROM LEFT WRIST/Sinus) Social History Alcohol Use: No Tobacco Use: No Substance Use: No Allergies-Medications (Allergen,Severity, Reaction): Coded Allergies: No Known Allergies (Verified Allergy, Unknown, 04/24/18) Reported Meds & Prescriptions Reported Meds & Active Scripts Active Prednisone 10 Mg Tab 10 Mg PO DIRECTED Take 20 mg by mouth twice a day for five days, then take 20 mg by mouth once a day for five days, then take 10 mg by mouth once a day for five days, then stop [place] (Hydrocodone-Acetaminophen) 5-325 mg Tab 1 Tab PO Q4H PRN Nifedipine ER 24 HR (Nifedipine) 60 Mg Tab 60 Mg PO Q12HR [Nystatin Liq] 5 ML Susp 5 Ml SWISH-SWAL QID 14 Days Meclizine (Meclizine HCl) 25 Mg Tab 25 Mg PO TID PRN 5 Days Reported Presley Milk of Magnesia (Magnesium Hydroxide) 311 Mg Chew 2 Tab CHEW DAILY PRN Sucralfate 1 Gm Tab 1 Gm PO TID on empty stomach Pantoprazole (Pantoprazole Sodium) 40 Mg Tab 40 Mg PO BID Creon (Amylase/Lipase/Protease) 12,000-38,000-60,000 Units Cap 1 Cap PO TIDPC Metoprolol Tartrate 25 Mg Tab 25 Mg PO BID Review of Systems Except as stated in HPI: all other systems reviewed are Neg Physical Exam Narrative GENERAL: 82yo F in moderate distress. SKIN: Focused skin assessment warm/dry. HEAD: Atraumatic. Normocephalic. EYES: Pupils equal and round. No scleral icterus. No injection or drainage. ENT: No nasal bleeding or discharge. Mucous membranes pink and moist. NECK: Trachea midline. No JVD. CARDIOVASCULAR: Regular rate and rhythm. No murmur appreciated. RESPIRATORY: No accessory muscle use. Clear to auscultation. Breath sounds equal bilaterally. GASTROINTESTINAL: Abdomen soft, +TTP epigastric and LUQ. +G tube. No rebound tenderness. MUSCULOSKELETAL: No obvious deformities. No clubbing. No cyanosis. No edema. NEUROLOGICAL: Awake and alert. No obvious cranial nerve deficits. Motor grossly within normal limits. Normal speech. PSYCHIATRIC: Appropriate mood and affect; insight and judgment normal. Data Data Last Documented VS Vital Signs Date Time Temp Pulse Resp B/P (MAP) Pulse Ox O2 Delivery O2 Flow Rate FiO2 04/24/18 04:59 89 16 98 Room Air 04/24/18 03:18 98.3 103/61 (75) Orders Orders Complete Blood Count With Diff (04/24/18 03:37) Comprehensive Metabolic Panel (04/24/18 03:37) Lipase (04/24/18 03:37) Prothrombin Time / Inr (Pt) (04/24/18 03:37) Act Partial Throm Time (Ptt) (04/24/18 03:37) Urinalysis - C+S If Indicated (04/24/18 03:37) Electrocardiogram (04/24/18 03:37) Ct Abd/Pel W/O Iv Contrast (04/24/18 ) Morphine Inj (Morphine Inj) (04/24/18 03:45) Ondansetron Odt (Zofran Odt) (04/24/18 03:45) Urine Culture (04/24/18 04:00) Ceftriaxone Inj (Rocephin Inj) (04/24/18 04:45) Ed Discharge Order (04/24/18 05:21) Labs Laboratory Tests Test 04/24/18 04:00 White Blood Count 11.6 TH/MM3 Red Blood Count 3.78 MIL/MM3 Hemoglobin 10.5 GM/DL Hematocrit 32.5 % Mean Corpuscular Volume 85.9 FL Mean Corpuscular Hemoglobin 27.8 PG Mean Corpuscular Hemoglobin Concent 32.4 % Red Cell Distribution Width 15.3 % Platelet Count 506 TH/MM3 Mean Platelet Volume 7.6 FL Neutrophils (%) (Auto) 78.0 % Lymphocytes (%) (Auto) 15.3 % Monocytes (%) (Auto) 4.8 % Eosinophils (%) (Auto) 1.1 % Basophils (%) (Auto) 0.8 % Neutrophils # (Auto) 9.1 TH/MM3 Lymphocytes # (Auto) 1.8 TH/MM3 Monocytes # (Auto) 0.6 TH/MM3 Eosinophils # (Auto) 0.1 TH/MM3 Basophils # (Auto) 0.1 TH/MM3 CBC Comment DIFF FINAL Differential Comment Prothrombin Time 11.4 SEC Prothromb Time International Ratio 1.1 RATIO Activated Partial Thromboplast Time 29.7 SEC Urine Color YELLOW Urine Turbidity HAZY Urine pH 5.5 Urine Specific [place] 1.014 Urine Protein 30 mg/dL Urine Glucose (UA) NEG mg/dL Urine Ketones NEG mg/dL Urine Occult Blood TRACE Urine Nitrite NEG Urine Bilirubin NEG Urine Urobilinogen LESS THAN 2.0 MG/DL Urine Leukocyte Esterase LARGE Urine RBC 11 /hpf Urine WBC 45 /hpf Urine WBC Clumps RARE Urine Squamous Epithelial Cells 5 /hpf Urine Amorphous Sediment RARE Urine Bacteria FEW /hpf Urine Mucus FEW /lpf Microscopic Urinalysis Comment CULTURE INDICATED Blood Urea Nitrogen 38 MG/DL Creatinine 3.51 MG/DL Random Glucose 119 MG/DL Total Protein 7.3 GM/DL Albumin 2.2 GM/DL Calcium Level 8.9 MG/DL Alkaline Phosphatase 117 U/L Aspartate Amino Transf (AST/SGOT) 5 U/L Alanine Aminotransferase (ALT/SGPT) 8 U/L Total Bilirubin 0.2 MG/DL Sodium Level 141 MEQ/L Potassium Level 3.7 MEQ/L Chloride Level 104 MEQ/L Carbon Dioxide Level 23.2 MEQ/L Anion Gap 14 MEQ/L Estimat Glomerular Filtration Rate 15 ML/MIN Lipase 110 U/L [facility] Medical Decision Making Medical Screen Exam Complete: Yes Emergency Medical Condition: Yes Differential Diagnosis Pancreatitis vs. cholangitis vs. choledocholithiasis Narrative Course 82yo F with abdominal pain and vomiting. Labs reviewed, WBC 11.6 which is improved from prior. H/H low at baseline. BUN/creatinine at 38/3.51 which is at baseline. Lipase normal at 110. UA showed large leukocyte. WBC 45. CT a/ p showed portal venous stent. Status post cholecystectomy. GJ tube. No free fluid or free air. Pt reevaluated at bedside after morphine and zofran. Said she feels much better. No longer has pain and no longer nauseous. Pt tolerating PO. 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 Return precautions given. Diagnosis Primary Impression: UTI (urinary tract infection) Qualified Codes: N39.0 - Urinary tract infection, site not specified; R31.9 - Hematuria, unspecified Patient Instructions: General Instructions Departure Forms: Tests/Procedures Additional Instructions: Please follow up with your primary care physician. Please follow up with your trash hauler. Return to the ED if symptoms worsen. Med/Other Pt SpecificInfo: Prescription(s) given Scripts Ondansetron Odt (Zofran Odt) 4 Mg Tab 4 MG SL Q12HR Y for Nausea/Vomiting, #10 TAB 0 Refills Prov: Ania Fontenot DO 04/24/18 Cephalexin (Cephalexin) 500 Mg Cap 500 MG PO Q12H for Infection for 7 Days, #14 CAP 0 Refills Prov: Ania Fontenot DO 04/24/18 Disposition: 01 DISCHARGE HOME Condition: Stable Ania Fontenot DO Apr 24, 2018 03:54
[2018-04-24 04:16] LABS: AMORPHOUS SEDIMENT, URINE RARE; AUTOMATED NEUTROPHIL # 9.1 TH/MM3 (1.8-7.7); BACTERIA, URINE FEW /hpf; BASOPHIL # 0.1 TH/MM3 (0-0.2); BASOPHIL % 0.8 % (0.0-2.0); BILIRUBIN, URINE NEG (NEG); BLOOD, URINE TRACE (NEG); EOSINOPHIL # 0.1 TH/MM3 (0-0.4); EOSINOPHIL % 1.1 % (0.0-4.0); GLUCOSE,URINE NEG (NEG); HEMATOCRIT 32.5 % (35.0-46.0); HEMOGLOBIN 10.5 GM/DL (11.6-15.3); KETONE, URINE NEG (NEG); LYMPH % 15.3 % (9.0-44.0); LYMPHOCYTE # 1.8 TH/MM3 (1.0-4.8); MEAN CELL VOLUME 85.9 FL (80.0-100.0); MEAN CORPUSCULAR HEMOGLOBIN 27.8 PG (27.0-34.0); MEAN CORPUSCULAR HGB CONC 32.4 % (32.0-36.0); MEAN PLATELET VOLUME 7.6 FL (7.0-11.0); MONO % 4.8 % (0.0-8.0); MONOCYTE # 0.6 TH/MM3 (0-0.9); MUCUS URINE FEW /lpf (OCC); NITRITE,URINE NEG (NEG); PH, URINE 5.5 (5.0-8.5); PLATELET COUNT 506 TH/MM3 (150-450); RED BLOOD COUNT 3.78 MIL/MM3 (4.00-5.30); RED CELL DISTRIBUTION WIDTH 15.3 % (11.6-17.2); SQUAMOUS EPITHELIAL CELL URINE 5 /hpf (0-5); URINE COLOR YELLOW (YELLW/STRAW); URINE LEUKOCYTE ESTERASE LARGE (NEG); WHITE BLOOD CELL CLUMPS RARE; WHITE BLOOD COUNT 11.6 TH/MM3 (4.0-11.0)
[2018-04-24 04:28] LABS: ALBUMIN 2.2 GM/DL (3.4-5.0); AST (GOT) 5 U/L (15-37); BICARBONATE 23.2 MEQ/L (21.0-32.0); BLOOD UREA NITROGEN 38 MG/DL (7-18); CALCIUM 8.9 MG/DL (8.5-10.1); CHLORIDE 104 MEQ/L (98-107); CREATININE 3.51 MG/DL (0.50-1.00); GLOMERULAR FILTRATION RATE 15 ML/MIN (>89); GLUCOSE,RANDOM 119 MG/DL (74-106); SODIUM (NA) 141 MEQ/L (136-145)
[2018-04-24 04:29] LABS: ALT (GPT) 8 U/L (10-53)
--- NOTE | 2018-04-24 04:30 | RADRPT ---
EXAM DATE: 04/24/2018 4:17 AM EDT AGE/SEX: 82 years / Female INDICATIONS: Left upper quadrant pain. CLINICAL DATA: This is the patient's initial encounter. Patient reports that signs and symptoms have been present for 1 day and indicates a pain score of 8/10. MEDICAL/SURGICAL HISTORY: Hypertension. Pancreatitis. Gastroesophageal reflux disease. Cholec ystectomy. Hysterectomy. Total knee replacement, left. J tube RADIATION DOSE: 7.32 CTDI (mGy) COMPARISON: [facility] [place], [place] ABDOMEN & PELVIS W/O CONTRAST, 03/03/2018. . TECHNIQUE: Multiple contiguous axial images were obtained through the abdomen. Images were obtained using multiple row detector helical technique. Using dose reduction techniques, radiation dose was ke pt as low as reasonably achievable to obtain optimal diagnostic quality images. FINDINGS: Lower Lungs: The visualized lower lungs are clear. Liver: The liver has a homogeneous density without space-occupying lesion. There is no dilation of th e biliary tree. There is a probable venous stent. Cholecystectomy Spleen: Homogeneous density without enlargement. Pancreas: Unremarkable without mass or calcification. Kidneys: Normal in size and shape except for small cyst upper pole right kidney. No evidence of mass or hydronephrosis. Adrenal Glands: Unremarkable. Aorta: The aorta and proximal iliac vessels are grossly unremarkable without aneurysmal dilation. Bowel/Mesentery: The G-tube is in good position The bowel loops are grossly unremarkable. The cecum a nd sigmoid colon have a normal configuration. Abdominal Wall: Intact. Retroperitoneum: No evidence of adenopathy in the retrocrural, para-aortic, or deep pelvic regions. Bladder: Contours are smooth. Reproductive Organs: No abnormal masses or calcifications seen. Inguinal: The inguinal region is unremarkable without evidence of adenopathy. Bony Structures: Unremarkable. CONCLUSION: 1. Portal venous stent. Status post cholecystectomy. GJ tube. No free fluid or free air. Electronically signed by: Sanford Avina MD 04/24/2018 4:29 AM EDT
[2018-04-24 04:31] LABS: ALKALINE PHOSPHATASE 117 U/L (45-117); TOTAL BILIRUBIN ADULT 0.2 MG/DL (0.2-1.0); TOTAL PROTEIN 7.3 GM/DL (6.4-8.2)
[2018-04-24 04:43] LABS: INTERNATIONAL NORMALIZED RATIO 1.1 RATIO; PROTHROMBIN TIME - PATIENT 11.4 SEC (9.8-11.6)
[2018-04-24] MEDS ORDERED: cefTRIAXone INJ 1,000 MG in SODIUM CHLORIDE 0.9% INJ 100 ML IV ONE (04:45)
[2018-04-24 04:59] VITALS: PULSE 89; RESP 16; O2SAT 98
[2018-04-24] MEDS ORDERED: ZOFR4TAB3 SL (05:31)
[2018-04-24] MEDS ORDERED: CEPH500C PO (05:31)
== END 2018-04-24 06:09 | disposition home or self-care (01) ==
LOC: NEPC 03:14
DX: N39.0 Urinary tract infection, site not specified (principal); R31.9 Hematuria, unspecified; I48.91 Unspecified atrial fibrillation; K86.1 Other chronic pancreatitis; I10 Essential (primary) hypertension; Z93.1 Gastrostomy status
CPT/HCPCS: 74176; 80053; 81001; 83690; 85025; 85610; 85730; 87086; 96365; 96375; 99284; J0696; J2270

== ENCOUNTER 2018-04-30 09:30 | Emergency (ER) | payer MEDICARE ==
[~2018-04-30] VITALS: Ht 157.5 cm; Wt 65.0 kg
[~2018-04-30 09:30] MED LIST changes: +CEPH500C PO; +ZOFR4TAB3 SL
[2018-04-30 09:31] VITALS: BP 123/64; PULSE 116; RESP 23; TEMP 98; O2SAT 100
[2018-04-30 09:40] VITALS: BP 123/64; PULSE 109; RESP 23; TEMP 98; O2SAT 99
[2018-04-30 09:41] VITALS: O2SAT 99
--- NOTE | 2018-04-30 09:44 | PD ---
HPI Chief Complaint: Chest Pain Time Seen by Provider: 09:31 Travel History International Travel<30 days: No Contact w/Intl Traveler<30days: No Traveled to known affect area: No History of Present Illness HPI The patient is a 82-year-old female who presents emergency department via EMS for epigastric abdominal pain that radiates to the substernal area and shortness of breath. The patient states her pain is been ongoing for several weeks, has progressed over the last several days. The patient does have a history of similar pain in the past which she attributes to pancreatitis. The pain is located in epigastrium, sharp, burning, and associated with mild shortness of breath. She denies any upper chest pain. She does complain of mild nausea without any vomiting. Symptoms are moderate. She does note a history of previous cholecystectomy, denies any alcohol abuse. The patient tried taking Lortab at home, however, that did not alleviate her pain. PFSH Past Medical History Asthma: No Atrial Fibrillation: Yes Autoimmune Disease: No Blood Disorders: No Anxiety: No Depression: No Heart Rhythm Problems: Yes Cancer: No Cardiovascular Problems: No High Cholesterol: Yes Chemotherapy: No Chest Pain: Yes Congestive Heart Failure: No COPD: No Cerebrovascular Accident: No Diabetes: No Diminished Hearing: No Endocrine: No Gastrointestinal Disorders: Yes (HIATAL HERNIA, gerd, duodenal ulcer) GERD: Yes Glaucoma: No Genitourinary: No Headaches: No Hepatitis: No Hiatal Hernia: Yes Hypertension: Yes Immune Disorder: No Implanted Vascular Access Dvce: Yes Kidney Stones: No Musculoskeletal: Yes (arthritis,neck and back problems) Neurologic: No Psychiatric: No Reproductive: No Respiratory: No Migraines: No Pancreatitis: Yes (chronic) Radiation Therapy: No Renal Failure: No Seizures: No Sickle Cell Disease: No Sleep Apnea: No Thyroid Disease: No Ulcer: No Tetanus Vaccination: Unknown Influenza Vaccination: Yes ?: Not Menopausal: Yes : 2 Para: 2 Past Surgical History Abdominal Surgery: Yes (cholecystectomy, sphincterotomy, Jtube placed) Arteriovenous Shunt: No Body Medical Devices: j tube Cardiac Surgery: No Cholecystectomy: Yes (2012) Ear Surgery: No Endocrine Surgery: No Eye Surgery: Yes (bilat cat) Genitourinary Surgery: Yes (HEMORRHOIDECTOMY) Gynecologic Surgery: No Hysterectomy: Yes Insulin Pump: No Joint Replacement: Yes (TKR LEFT KNEE) Oral Surgery: No Pacemaker: No Thoracic Surgery: No Other Surgery: Yes (GROWTH REMOVED FROM LEFT WRIST/Sinus) Social History Alcohol Use: No Tobacco Use: No Substance Use: No Allergies-Medications (Allergen,Severity, Reaction): Coded Allergies: No Known Allergies (Verified Allergy, Unknown, 04/30/18) Reported Meds & Prescriptions Reported Meds & Active Scripts Active Zofran Odt (Ondansetron Odt) 4 Mg Tab 4 Mg SL Q12HR PRN Roscoe (Hydrocodone-Acetaminophen) 5-325 mg Tab 1 Tab PO Q4H PRN Nifedipine ER 24 HR (Nifedipine) 60 Mg Tab 60 Mg PO Q12HR [Nystatin Liq] 5 ML Susp 5 Ml SWISH-SWAL QID 14 Days Meclizine (Meclizine HCl) 25 Mg Tab 25 Mg PO TID PRN 5 Days Reported Sucralfate 1 Gm Tab 1 Gm PO TID on empty stomach Pantoprazole (Pantoprazole Sodium) 40 Mg Tab 40 Mg PO BID Creon (Amylase/Lipase/Protease) 12,000-38,000-60,000 Units Cap 1 Cap PO TIDPC Metoprolol Tartrate 25 Mg Tab 25 Mg PO BID Review of Systems Except as stated in HPI: all other systems reviewed are Neg General / Constitutional: No: Fever HENT: No: Lightheadedness Cardiovascular: Positive: Chest Pain or Discomfort Respiratory: Positive: Shortness of Breath Gastrointestinal: Positive: Nausea, Abdominal Pain, No: Vomiting Musculoskeletal: No: Weakness, Edema Neurologic: No: Dizziness Physical Exam Narrative GENERAL: Awake, alert, pleasant 82-year-old female appears her stated age and appears to be in moderate discomfort. SKIN: Focused skin assessment warm/dry. HEAD: Atraumatic. Normocephalic. EYES: No injection or drainage. ENT: No nasal bleeding or discharge. Mucous membranes pink and moist. NECK: Trachea midline. No JVD. CARDIOVASCULAR: Regular, tachycardic with a heart rate of 105. RESPIRATORY: No accessory muscle use. Clear to auscultation. Breath sounds equal bilaterally. GASTROINTESTINAL: Abdomen soft, epigastric tenderness. J-tube in place. No guarding or rigidity. MUSCULOSKELETAL: No obvious deformities. No clubbing. No cyanosis. No edema. NEUROLOGICAL: Awake and alert. No obvious cranial nerve deficits. Motor grossly within normal limits. Normal speech. PSYCHIATRIC: Appropriate mood and affect; insight and judgment normal. Data Data Last Documented VS Vital Signs Date Time Temp Pulse Resp B/P (MAP) Pulse Ox O2 Delivery O2 Flow Rate FiO2 04/30/18 09:53 123/64 (83) 127/59 (81) 04/30/18 09:41 99 Room Air 04/30/18 09:41 2.00 04/30/18 09:40 98.0 109 23 Orders Orders Electrocardiogram (04/30/18 09:38) Ckmb (Isoenzyme) Profile (04/30/18 09:38) Complete Blood Count With Diff (04/30/18 09:38) Comprehensive Metabolic Panel (04/30/18 09:38) Magnesium (Mg) (04/30/18 09:38) Prothrombin Time / Inr (Pt) (04/30/18 09:38) Act Partial Throm Time (Ptt) (04/30/18 09:38) Troponin I (04/30/18 09:38) Lipase (04/30/18 09:38) Chest, Single Ap (04/30/18 09:38) Ecg Monitoring (04/30/18 09:38) Bilateral Bp Monitoring (04/30/18 09:38) Iv Access Insert/Monitor (04/30/18 09:38) Oximetry (04/30/18 09:38) Oxygen Administration (04/30/18 09:38) Morphine Inj (Morphine Inj) (04/30/18 09:45) Sodium Chloride 0.9% Flush (Ns Flush) (04/30/18 09:45) Sodium Chlorid 0.9% 500 Ml Inj (Ns 500 M (04/30/18 09:45) Ondansetron Odt (Zofran Odt) (04/30/18 09:45) Morphine Inj (Morphine Inj) (04/30/18 10:15) Ed Discharge Order (04/30/18 11:16) Labs Laboratory Tests Test 04/30/18 09:45 White Blood Count 17.1 TH/MM3 Red Blood Count 4.05 MIL/MM3 Hemoglobin 11.0 GM/DL Hematocrit 34.3 % Mean Corpuscular Volume 84.6 FL Mean Corpuscular Hemoglobin 27.2 PG Mean Corpuscular Hemoglobin Concent 32.2 % Red Cell Distribution Width 15.7 % Platelet Count 593 TH/MM3 Mean Platelet Volume 8.0 FL Neutrophils (%) (Auto) 76.8 % Lymphocytes (%) (Auto) 17.2 % Monocytes (%) (Auto) 4.2 % Eosinophils (%) (Auto) 0.6 % Basophils (%) (Auto) 1.2 % Neutrophils # (Auto) 13.1 TH/MM3 Lymphocytes # (Auto) 2.9 TH/MM3 Monocytes # (Auto) 0.7 TH/MM3 Eosinophils # (Auto) 0.1 TH/MM3 Basophils # (Auto) 0.2 TH/MM3 CBC Comment AUTO DIFF Differential Total Cells Counted 100 Neutrophils % (Manual) 63 % Band Neutrophils % 4 % Lymphocytes % 22 % Monocytes % 6 % Eosinophils % 1 % Neutrophils # (Manual) 12.1 TH/MM3 Metamyelocytes 2 % Myelocytes 2 % Differential Comment FINAL DIFF MANUAL Toxic Vacuolation PRESENT Platelet Estimate HIGH Platelet Morphology Comment NORMAL Red Cell Morphology Comment NORMAL Prothrombin Time 11.4 SEC Prothromb Time International Ratio 1.1 RATIO Activated Partial Thromboplast Time 29.0 SEC Blood Urea Nitrogen 35 MG/DL Creatinine 3.72 MG/DL Random Glucose 102 MG/DL Total Protein 7.6 GM/DL Albumin 2.1 GM/DL Calcium Level 9.2 MG/DL Magnesium Level 2.1 MG/DL Alkaline Phosphatase 260 U/L Aspartate Amino Transf (AST/SGOT) 31 U/L Alanine Aminotransferase (ALT/SGPT) 12 U/L Total Bilirubin 0.4 MG/DL Sodium Level 139 MEQ/L Potassium Level 3.8 MEQ/L Chloride Level 104 MEQ/L Carbon Dioxide Level 19.7 MEQ/L Anion Gap 15 MEQ/L Estimat Glomerular Filtration Rate 14 ML/MIN Total Creatine Kinase 16 U/L Troponin I LESS THAN 0.02 NG/ML Lipase 211 U/L [facility] Medical Decision Making Medical Screen Exam Complete: Yes Emergency Medical Condition: Yes Medical Record Reviewed: Yes Interpretation(s) EKG reveals sinus tachycardia with a heart rate of 106. Moderate intraventricular conduction delay with QRS of 113 ms. Laboratory Tests Test 04/30/18 09:45 White Blood Count 17.1 TH/MM3 Red Blood Count 4.05 MIL/MM3 Hemoglobin 11.0 GM/DL Hematocrit 34.3 % Mean Corpuscular Volume 84.6 FL Mean Corpuscular Hemoglobin 27.2 PG Mean Corpuscular Hemoglobin Concent 32.2 % Red Cell Distribution Width 15.7 % Platelet Count 593 TH/MM3 Mean Platelet Volume 8.0 FL Neutrophils (%) (Auto) 76.8 % Lymphocytes (%) (Auto) 17.2 % Monocytes (%) (Auto) 4.2 % Eosinophils (%) (Auto) 0.6 % Basophils (%) (Auto) 1.2 % Neutrophils # (Auto) 13.1 TH/MM3 Lymphocytes # (Auto) 2.9 TH/MM3 Monocytes # (Auto) 0.7 TH/MM3 Eosinophils # (Auto) 0.1 TH/MM3 Basophils # (Auto) 0.2 TH/MM3 CBC Comment AUTO DIFF Differential Total Cells Counted 100 Neutrophils % (Manual) 63 % Band Neutrophils % 4 % Lymphocytes % 22 % Monocytes % 6 % Eosinophils % 1 % Neutrophils # (Manual) 12.1 TH/MM3 Metamyelocytes 2 % Myelocytes 2 % Differential Comment FINAL DIFF MANUAL Toxic Vacuolation PRESENT Platelet Estimate HIGH Platelet Morphology Comment NORMAL Red Cell Morphology Comment NORMAL Prothrombin Time 11.4 SEC Prothromb Time International Ratio 1.1 RATIO Activated Partial Thromboplast Time 29.0 SEC Blood Urea Nitrogen 35 MG/DL Creatinine 3.72 MG/DL Random Glucose 102 MG/DL Total Protein 7.6 GM/DL Albumin 2.1 GM/DL Calcium Level 9.2 MG/DL Magnesium Level 2.1 MG/DL Alkaline Phosphatase 260 U/L Aspartate Amino Transf (AST/SGOT) 31 U/L Alanine Aminotransferase (ALT/SGPT) 12 U/L Total Bilirubin 0.4 MG/DL Sodium Level 139 MEQ/L Potassium Level 3.8 MEQ/L Chloride Level 104 MEQ/L Carbon Dioxide Level 19.7 MEQ/L Anion Gap 15 MEQ/L Estimat Glomerular Filtration Rate 14 ML/MIN Total Creatine Kinase 16 U/L Troponin I LESS THAN 0.02 NG/ML Lipase 211 U/L Differential Diagnosis Differential diagnosis includes pancreatitis, perforated viscus, peptic ulcer disease, gastritis, GERD, esophageal spasm, acute coronary syndrome, dissection , pulmonary embolism. Narrative Course IV was established, labs are drawn and sent, the patient was placed on cardiac telemetry monitoring and continuous pulse oximetry monitoring. EKG was ordered and interpreted. Chest x-ray was obtained. The patient was administered morphine, Zofran, and IV fluids. I reviewed the patient's EMR, she was seen on April 24, 2018 for abdominal pain, had a CT of the abdomen and pelvis performed at that time as well as laboratory evaluation. The patient's white count was mildly elevated, however, the patient was afebrile. I did review the EMR, she did have elevated white count throughout her previous hospitalization which has fluctuated. Lipase level was normal, previous admission and lipase level was elevated. The patient's cardiac enzymes are unremarkable. Chest x-ray was negative. The patient received a second dose of pain medication, was reevaluated at 11:15 AM, her pain had resolved. Belly exam is now benign. The patient is advised to follow-up with her primary physician, her power shovel mechanic, Dr. Melara, for her chronic kidney disease, and her silk washing machine operator, Dr. Ortega, for her ongoing abdominal pain. She is advised to return if symptoms worsen or progress. Diagnosis Primary Impression: Abdominal pain Qualified Codes: R10.13 - Epigastric pain Additional Impressions: CKD (chronic kidney disease) stage 4, GFR 15-29 ml/min Leukocytosis Qualified Codes: D72.829 - Elevated white blood cell count, unspecified Patient Instructions: General Instructions, Narcotic given in the ED Additional Instructions: Medication as directed. Follow-up with your silk washing machine operator and power shovel mechanic. Return if symptoms worsen or progress. Please provide the patient a copy of her labs at discharge. Med/Other Pt SpecificInfo: Prescription(s) given Scripts Ondansetron Odt (Zofran Odt) 4 Mg Tab 4 MG SL Q6HR Y for Nausea/Vomiting, #10 TAB 0 Refills Prov: Mayank Garcia MD 04/30/18 Hydrocodone-Acetaminophen (Roscoe) 5 Mg-325 Mg Tab 1 TAB PO Q6H Y for PAIN, #12 TAB 0 Refills Prov: Mayank Garcia MD 04/30/18 Disposition: DISCHARGE HOME Condition: Stable Mayank Garcia MD Apr 30, 2018 09:44
[2018-04-30] MEDS ORDERED: MORPHINE SULFATE 4 MG/ML INJ IV PUSH ONE ×2 (09:45→10:15)
[2018-04-30] MEDS ORDERED: SODIUM CHLORIDE 0.9% FLUSH 10 ML FLUSH IVF PRN (09:45)
[2018-04-30] MEDS ORDERED: SODIUM CHLORID 0.9% 500 ML INJ 500 ML IV ONE (09:45)
[2018-04-30] MEDS ORDERED: ONDANSETRON ODT 4 MG TAB PO ONE (09:45)
[2018-04-30 09:53] VITALS: BP_SYST 123; BP_SYST 127; BP_DIAS 59; BP_DIAS 64
[2018-04-30 10:09] LABS: AUTOMATED NEUTROPHIL # 13.1 TH/MM3 (1.8-7.7); BASOPHIL # 0.2 TH/MM3 (0-0.2); BASOPHIL % 1.2 % (0.0-2.0); EOSINOPHIL # 0.1 TH/MM3 (0-0.4); EOSINOPHIL % 0.6 % (0.0-4.0); HEMATOCRIT 34.3 % (35.0-46.0); LYMPH % 17.2 % (9.0-44.0); LYMPHOCYTE # 2.9 TH/MM3 (1.0-4.8); MEAN CELL VOLUME 84.6 FL (80.0-100.0); MEAN CORPUSCULAR HEMOGLOBIN 27.2 PG (27.0-34.0); MEAN CORPUSCULAR HGB CONC 32.2 % (32.0-36.0); MONO % 4.2 % (0.0-8.0); MONOCYTE # 0.7 TH/MM3 (0-0.9); NEUT % 76.8 % (16.0-70.0); PLATELET COUNT 593 TH/MM3 (150-450); RED BLOOD COUNT 4.05 MIL/MM3 (4.00-5.30); RED CELL DISTRIBUTION WIDTH 15.7 % (11.6-17.2); WHITE BLOOD COUNT 17.1 TH/MM3 (4.0-11.0)
[2018-04-30 10:26] LABS: INTERNATIONAL NORMALIZED RATIO 1.1 RATIO; PROTHROMBIN TIME - PATIENT 11.4 SEC (9.8-11.6)
[2018-04-30 10:28] LABS: ALBUMIN 2.1 GM/DL (3.4-5.0); AST (GOT) 31 U/L (15-37); BICARBONATE 19.7 MEQ/L (21.0-32.0); BLOOD UREA NITROGEN 35 MG/DL (7-18); CALCIUM 9.2 MG/DL (8.5-10.1); CHLORIDE 104 MEQ/L (98-107); CREATININE 3.72 MG/DL (0.50-1.00); GLOMERULAR FILTRATION RATE 14 ML/MIN (>89); GLUCOSE,RANDOM 102 MG/DL (74-106); MAGNESIUM 2.1 MG/DL (1.5-2.5); SODIUM (NA) 139 MEQ/L (136-145)
[2018-04-30 10:29] LABS: ALT (GPT) 12 U/L (10-53)
[2018-04-30 10:33] LABS: ALKALINE PHOSPHATASE 260 U/L (45-117); TOTAL BILIRUBIN ADULT 0.4 MG/DL (0.2-1.0); TOTAL PROTEIN 7.6 GM/DL (6.4-8.2); TROPONIN I LESS THAN 0.02 NG/ML (0.02-0.05)
--- NOTE | 2018-04-30 10:41 | RADRPT ---
EXAM DATE: 04/30/2018 10:36 AM EDT AGE/SEX: 82 years / Female INDICATIONS: Chest pain. CLINICAL DATA: This is the patient's initial encounter. Patient reports that signs and symptoms have been present for 1 day and indicates a pain score of 10/10. MEDICAL/SURGICAL HISTORY: . Hypertension. Pancreatitis. Gastroesophageal reflux disease. . Cho lecystectomy. Hysterectomy. Total knee replacement, left. J tube COMPARISON: [facility], CHEST SINGLE AP, 01/03/2018. [facility], CHEST SINGLE AP, 09/18/2017. [facility], CHEST SINGL E AP, 12/16/2015. [facility], CHEST SINGLE AP, 02/20/2015. . FINDINGS: Portable AP view of the chest demonstrates a normal-sized cardiac silhouette. EKG lines overlie the p atient. There are linear opacities at both lung bases. No pleural effusion, airspace consolidation, o r pneumothorax is identified. Bones and soft tissues demonstrate no acute finding. There is a stable mild leftward deviation of the trachea. CONCLUSION: 1. No acute cardiopulmonary abnormality is identified. Linear opacities at the lung bases most likel y represent subsegmental atelectasis. 2. Stable mild leftward deviation of the trachea without significant change for several years. This most likely is related to an enlarged right lobe of the thyroid gland. Electronically signed by: Luis E Picektt MD 04/30/2018 10:40 AM EDT
[2018-04-30 10:50] LABS: BANDS 4 % (0-6); LYMPHOCYTES 22 % (9-44); METAMYELOCYTES 2 % (0-1); MONOCYTES 6 % (0-8); MYELOCYTES 2 % (0-0); NEUTROPHIL # MANUAL DIFF 12.1 TH/MM3 (1.8-7.7); POLYS (SEG NEUTROPHILS) 63 % (16-70)
[2018-04-30 10:51] LABS: TOXIC VACUOLATION PRESENT (NONE SEEN)
[2018-04-30] MEDS ORDERED: NORC5TAB PO (11:19)
[2018-04-30] MEDS ORDERED: ZOFR4TAB3 SL (11:19)
[2018-04-30 11:31] VITALS: BP 111/62
--- NOTE | 2018-05-01 13:32 | EKG ---
Date Performed: 04/30/2018 Time Performed: 09:33:12 PTAGE: 82 years EKG: SINUS TACHYCARDIA MODERATE INTRAVENTRICULAR CONDUCTION DELAY ABNORMAL RHYTHM ECG PREVIOUS TRACING : 09/18/2017 12.18 Rate has increased significantly since the prior tracing. DOCTOR: Khoa Dubose Interpretating Date/Time 05/01/2018 13:31:01
== END 2018-04-30 11:39 | disposition home or self-care (01) ==
LOC: NEPC 09:30
DX: R10.13 Epigastric pain (principal); D72.829 Elevated white blood cell count, unspecified; R00.0 Tachycardia, unspecified; R94.31 Abnormal electrocardiogram [ECG] [EKG]; I12.9 Hypertensive chronic kidney disease with stage 1 through stage 4 chronic kidney disease, or unspecified chronic kidney disease; N18.4 Chronic kidney disease, stage 4 (severe); I48.91 Unspecified atrial fibrillation; E78.00 Pure hypercholesterolemia, unspecified; K21.9 Gastro-esophageal reflux disease without esophagitis; Z87.19 Personal history of other diseases of the digestive system; Z79.899 Other long term (current) drug therapy
CPT/HCPCS: 71045; 80053; 82550; 83690; 83735; 84484; 85007; 85027; 85610; 85730; 93005; 96361; 96374; 96376; 99285; J2270; J7040

== ENCOUNTER 2018-05-16 06:52 | Inpatient (IN) ==
[2018-05-16] MEDS ORDERED: *morphine SULFATE 2 MG/ML PERIprocedure ONLY IV.PUSH ONE (07:37)
[2018-05-16] MEDS ORDERED: Sodium Chlor 0.9% Inj 500 ML IV.SIG ONE (07:39)
--- NOTE | 2018-05-16 07:46 | ED ---
HPI General Chief Complaint: Abdominal Pain Stated Complaint: poss pancrientitis Time Seen by Provider: 05/16/18 07:31 History of Present Illness HPI narrative: Patient presents emergency department complaining of "my pancreatitis." Patient complains of diffuse abdominal pain for greater than a month, constant, 10 out of 10, radiates throughout abdomen, though not working, last dose of pain it was last night, aggravated by movement and alleviated with rest. For subjective fever, nausea and vomiting, nonbloody diarrhea, but as of breath with the pain, questionable chest pain. Related Data Home Medications Medication Instructions Recorded Confirmed Unable to Obtain Home Meds 05/16/18 05/16/18 Allergies Allergy/AdvReac Type Severity Reaction Status Date / Time No Known Allergies Allergy Unverified 05/16/18 07:25 Review of Systems ROS Unobtainable All other systems reviewed negative except as stated in HPI [facility] Medical History Medical History Hypertension (Acute) Pancreatitis (Acute) Surgical History Surgical History History of total left knee replacement (TKR) (Acute) Hx of cholecystectomy (Acute) Social History Social History Substance History: No History of Abuse Smoking Status: Never smoker How Often Do You Have a Drink Containing Alcohol: Never Recent Travel in [facility] within the Last 8 Weeks: No Recent Out of Country Travel within the Last 8 Weeks: No Immunization History Tetanus Immunization: Unsure Hx Influenza Vaccine This Season: Yes Exam Narrative Exam Narrative: GENERAL: No acute distress. SKIN: Focused skin assessment warm/dry. HEAD: Atraumatic. Normocephalic. EYES: Pupils equal and round. No scleral icterus. No injection or drainage. ENT: No nasal bleeding or discharge. Mucous membranes pink and moist. NECK: Trachea midline. No JVD. CARDIOVASCULAR: Regular rate and rhythm. No murmur appreciated. RESPIRATORY: No accessory muscle use. Clear to auscultation. Breath sounds equal bilaterally. GASTROINTESTINAL: Abdomen soft, diffusely tender, nondistended. MUSCULOSKELETAL: No obvious deformities. No clubbing. No cyanosis. No edema. NEUROLOGICAL: Awake and alert. No obvious cranial nerve deficits. Motor grossly within normal limits. Normal speech. PSYCHIATRIC: Appropriate mood and affect; insight and judgment normal. Course Initial Documented Vital Signs Temperature 98.0 F 05/16/18 07:07 Pulse Rate 84 05/16/18 07:07 Respiratory Rate 16 05/16/18 07:07 Blood Pressure 102/58 L 05/16/18 07:07 Pulse Oximetry 100 05/16/18 07:07 Last Documented Vital Signs Temperature 98.3 F 05/16/18 07:35 Pulse Rate 72 05/16/18 13:05 Respiratory Rate 12 05/16/18 13:05 Blood Pressure 124/60 05/16/18 13:05 Pulse Oximetry 100 05/16/18 13:05 Medical Decision Making MDM Narrative Medical decision making narrative: Patient presents to the emergency department complaining of abdominal pain. Patient placed on radiation monitor, continuous pulse ox, and IV access obtained. EKG/chest x-ray/CT abdomen and pelvis/labs/ IV fluids 500 cc normal saline bolus/2 mg IV morphine/Zofran 4 mg ODT ordered. ECG: SR, rate 62, normal axis Abd CT: CONCLUSION:1. Stable and grossly unremarkable follow-up CT scan of the abdomenand pelvis compared to the prior study.2. Stable tiny 2 mm nonobstructing stone right kidney.3. Stable 1.4 cm right renal cyst. CXR: CONCLUSION: 1. No acute abnormality or significant interval change. Labs: Leukocytosis, increased platelets, decreased hemoglobin and hematocrit ( all of which patient has a history of) chem-increased BUN, increased creatinine (more increased from prior) , increased alk phos; ua-+ bacteria, LE Patient given 1g IV rocephin for UTI. 2mg morphine IV x 2. Spoke to Dr. Eddy, will admit for worsening renal function. Differential Diagnosis Differential Diagnosis: Pancreatitis, ACS, kidney stone, appendicitis, UTI Lab Data Result diagrams: 05/16/18 07:55 05/16/18 07:55 Lab Results 05/16/18 05/16/18 05/16/18 Range/Units 07:55 07:55 07:55 WBC 18.2 H (4.0-11.0) th/mm3 RBC 3.51 L (4.00-5.30) mil/mm3 Hgb 9.7 L (11.6-15.3) gm/dL Hct 30.0 L (35.0-46.0) % MCV 85.4 (80.0-100.0) fL MCH 27.5 (27.0-34.0) pg MCHC 32.2 (32.0-36.0) % RDW 17.0 (11.6-17.2) % Plt Count 517 H (150-450) th/mm3 MPV 8.2 (7.0-11.0) fL Prelim Diff (Auto) Slide review pending Neut % (Auto) 81.1 H (16.0-70.0) % Lymph % (Auto) 11.2 (9.0-44.0) % Parke % (Auto) 3.8 (0.0-8.0) % Eos % (Auto) 3.3 (0.0-4.0) % Baso % (Auto) 0.6 (0.0-2.0) % Neut # (Auto) 14.8 H (1.8-7.7) th/mm3 Lymph # (Auto) 2.0 (1.0-4.8) th/mm3 Parke # (Auto) 0.7 (0.0-0.9) th/mm3 Eos # (Auto) 0.6 H (0.0-0.4) th/mm3 Baso # (Auto) 0.1 (0.0-0.2) th/mm3 WBC Differential Manual diff final Seg Neuts % (Manual) 79 H (16-70) % Band Neuts % (Manual) 4 (0-6) % Lymphocytes % (Manual) 8 L (9-44) % Monocytes % (Manual) 4 (0-8) % Eosinophils % (Manual) 3 (0-4) % Metamyelocytes % (Man) 1 (0-1) % Myelocytes % (Man) 1 H (0-0) % Abs Neuts (Manual) 15.5 H (1.8-7.7) th/mm3 Differential Comment . Platelet Estimate High H (Normal) Platelet Morphology Normal (Normal) PT (9.8-11.6) sec INR Ratio APTT (24.3-30.1) sec Sodium 137 (136-145) meq/L Potassium 3.7 (3.5-5.1) meq/L Chloride 104 (98-107) meq/L Carbon Dioxide 17.9 L (21.0-32.0) meq/L Anion Gap 15 (5-15) meq/L BUN 60 H (7-18) mg/dL Creatinine 4.56 H (0.50-1.00) mg/dL Estimated GFR 11 L (>89) mL/min Random Glucose 119 H (74-106) mg/dL Lactic Acid (0.4-2.0) mmol/L Calcium 8.8 (8.5-10.1) mg/dL Total Bilirubin 0.3 (0.2-1.0) mg/dL AST 17 (15-37) U/L ALT Less than 6 L (10-53) U/L Alkaline Phosphatase 211 H (45-117) U/L Total Creatine Kinase 34 Cancelled (26-192) U/L Troponin I Less than 0.02 L (0.02-0.05) ng/mL Total Protein 7.5 (6.4-8.2) g/dL Albumin 1.7 L (3.4-5.0) g/dL Lipase 350 (73-393) U/L Urine Color (Yellw/Straw) Urine Clarity (Clear) Urine pH (5.0-8.5) Ur Specific [place] (1.002-1.035) Urine Protein (Neg-Trace) mg/dL Urine Glucose (UA) (Negative) mg/dL Urine Ketones (Negative) mg/dL Urine Occult Blood (Negative) Urine Nitrate (Negative) Urine Bilirubin (Negative) Urine Urobilinogen (Less than 2) mg/dL Ur Leukocyte Esterase (Negative) Urine RBC (0-3) /hpf Urine WBC (0-5) /hpf Urine WBC Clumps (None) Ur Squamous Epith Cells (0-5) /hpf Ur Transition Epith Cell (None) /hpf Ur Renal Epithelial Cell (None) /hpf Urine Bacteria (None) /hpf Micro UA Comment Urine Culture Comments 05/16/18 05/16/18 05/16/18 Range/Units 09:14 09:17 10:20 WBC (4.0-11.0) th/mm3 RBC (4.00-5.30) mil/mm3 Hgb (11.6-15.3) gm/dL Hct (35.0-46.0) % MCV (80.0-100.0) fL MCH (27.0-34.0) pg MCHC (32.0-36.0) % RDW (11.6-17.2) % Plt Count (150-450) th/mm3 MPV (7.0-11.0) fL Prelim Diff (Auto) Neut % (Auto) (16.0-70.0) % Lymph % (Auto) (9.0-44.0) % Parke % (Auto) (0.0-8.0) % Eos % (Auto) (0.0-4.0) % Baso % (Auto) (0.0-2.0) % Neut # (Auto) (1.8-7.7) th/mm3 Lymph # (Auto) (1.0-4.8) th/mm3 Parke # (Auto) (0.0-0.9) th/mm3 Eos # (Auto) (0.0-0.4) th/mm3 Baso # (Auto) (0.0-0.2) th/mm3 WBC Differential Seg Neuts % (Manual) (16-70) % Band Neuts % (Manual) (0-6) % Lymphocytes % (Manual) (9-44) % Monocytes % (Manual) (0-8) % Eosinophils % (Manual) (0-4) % Metamyelocytes % (Man) (0-1) % Myelocytes % (Man) (0-0) % Abs Neuts (Manual) (1.8-7.7) th/mm3 Differential Comment Platelet Estimate (Normal) Platelet Morphology (Normal) PT 12.7 H (9.8-11.6) sec INR 1.3 Ratio APTT 36.2 H (24.3-30.1) sec Sodium (136-145) meq/L Potassium (3.5-5.1) meq/L Chloride (98-107) meq/L Carbon Dioxide (21.0-32.0) meq/L Anion Gap (5-15) meq/L BUN (7-18) mg/dL Creatinine (0.50-1.00) mg/dL Estimated GFR (>89) mL/min Random Glucose (74-106) mg/dL Lactic Acid 0.8 (0.4-2.0) mmol/L Calcium (8.5-10.1) mg/dL Total Bilirubin (0.2-1.0) mg/dL AST (15-37) U/L ALT (10-53) U/L Alkaline Phosphatase (45-117) U/L Total Creatine Kinase (26-192) U/L Troponin I (0.02-0.05) ng/mL Total Protein (6.4-8.2) g/dL Albumin (3.4-5.0) g/dL Lipase (73-393) U/L Urine Color Yellow (Yellw/Straw) Urine Clarity Slightly cloudy (Clear) Urine pH 5.0 (5.0-8.5) Ur Specific [place] 1.012 (1.002-1.035) Urine Protein Negative (Neg-Trace) mg/dL Urine Glucose (UA) Negative (Negative) mg/dL Urine Ketones Negative (Negative) mg/dL Urine Occult Blood Moderate H (Negative) Urine Nitrate Negative (Negative) Urine Bilirubin Negative (Negative) Urine Urobilinogen Less than 2 (Less than 2) mg/dL Ur Leukocyte Esterase Large H (Negative) Urine RBC 25 H (0-3) /hpf Urine WBC (0-5) /hpf Urine WBC Clumps Moderate H (None) Ur Squamous Epith Cells 4 (0-5) /hpf Ur Transition Epith Cell <1 (None) /hpf Ur Renal Epithelial Cell <1 (None) /hpf Urine Bacteria Few H (None) /hpf Micro UA Comment Culture indicated Urine Culture Comments Culture indicated 05/16/18 Range/Units 11:08 WBC (4.0-11.0) th/mm3 RBC (4.00-5.30) mil/mm3 Hgb (11.6-15.3) gm/dL Hct (35.0-46.0) % MCV (80.0-100.0) fL MCH (27.0-34.0) pg MCHC (32.0-36.0) % RDW (11.6-17.2) % Plt Count (150-450) th/mm3 MPV (7.0-11.0) fL Prelim Diff (Auto) Neut % (Auto) (16.0-70.0) % Lymph % (Auto) (9.0-44.0) % Parke % (Auto) (0.0-8.0) % Eos % (Auto) (0.0-4.0) % Baso % (Auto) (0.0-2.0) % Neut # (Auto) (1.8-7.7) th/mm3 Lymph # (Auto) (1.0-4.8) th/mm3 Parke # (Auto) (0.0-0.9) th/mm3 Eos # (Auto) (0.0-0.4) th/mm3 Baso # (Auto) (0.0-0.2) th/mm3 WBC Differential Seg Neuts % (Manual) (16-70) % Band Neuts % (Manual) (0-6) % Lymphocytes % (Manual) (9-44) % Monocytes % (Manual) (0-8) % Eosinophils % (Manual) (0-4) % Metamyelocytes % (Man) (0-1) % Myelocytes % (Man) (0-0) % Abs Neuts (Manual) (1.8-7.7) th/mm3 Differential Comment Platelet Estimate (Normal) Platelet Morphology (Normal) PT (9.8-11.6) sec INR Ratio APTT (24.3-30.1) sec Sodium (136-145) meq/L Potassium (3.5-5.1) meq/L Chloride (98-107) meq/L Carbon Dioxide (21.0-32.0) meq/L Anion Gap (5-15) meq/L BUN (7-18) mg/dL Creatinine (0.50-1.00) mg/dL Estimated GFR (>89) mL/min Random Glucose (74-106) mg/dL Lactic Acid (0.4-2.0) mmol/L Calcium (8.5-10.1) mg/dL Total Bilirubin (0.2-1.0) mg/dL AST (15-37) U/L ALT (10-53) U/L Alkaline Phosphatase (45-117) U/L Total Creatine Kinase (26-192) U/L Troponin I Less than 0.02 L (0.02-0.05) ng/mL Total Protein (6.4-8.2) g/dL Albumin (3.4-5.0) g/dL Lipase (73-393) U/L Urine Color (Yellw/Straw) Urine Clarity (Clear) Urine pH (5.0-8.5) Ur Specific [place] (1.002-1.035) Urine Protein (Neg-Trace) mg/dL Urine Glucose (UA) (Negative) mg/dL Urine Ketones (Negative) mg/dL Urine Occult Blood (Negative) Urine Nitrate (Negative) Urine Bilirubin (Negative) Urine Urobilinogen (Less than 2) mg/dL Ur Leukocyte Esterase (Negative) Urine RBC (0-3) /hpf Urine WBC (0-5) /hpf Urine WBC Clumps (None) Ur Squamous Epith Cells (0-5) /hpf Ur Transition Epith Cell (None) /hpf Ur Renal Epithelial Cell (None) /hpf Urine Bacteria (None) /hpf Micro UA Comment Urine Culture Comments Imaging Data Radiologist's impression: ITS Impressions Chest X-Ray 05/16/18 07:37 CONCLUSION: 1. No acute abnormality or significant interval change. Abdomen/Pelvis CT 05/16/18 07:43 CONCLUSION: 1. Stable and grossly unremarkable follow-up CT scan of the abdomen and pelvis compared to the prior study. 2. Stable tiny 2 mm nonobstructing stone right kidney. 3. Stable 1.4 cm right renal cyst. Discharge Plan Discharge Disposition Patient Disposition: 30 Still Patient Discharge Condition Condition: Stable Discharge Details Discharge Problem: Acute UTI, Abdominal pain, Acute on chronic kidney failure Physicians Team ED Provider: Bobbi Neely Primary Care Provider: Hong Peterson Attending Provider: Alexander Eddy Status ED Status: Admitted Patient
[2018-05-16 08:14] LABS: Baso # (Auto) 0.1 th/mm3 (0.0-0.2); Baso % (Auto) 0.6 % (0.0-2.0); Eos # (Auto) 0.6 th/mm3 (0.0-0.4); Eos % (Auto) 3.3 % (0.0-4.0); Hemoglobin 9.7 gm/dL (11.6-15.3); Lymph % (Auto) 11.2 % (9.0-44.0); Mean Corpuscular HGB Conc 32.2 % (32.0-36.0); Mean Corpuscular Hemoglobin 27.5 pg (27.0-34.0); Mean Corpuscular Volume 85.4 fL (80.0-100.0); Mean Platelet Volume 8.2 fL (7.0-11.0); Mono # (Auto) 0.7 th/mm3 (0.0-0.9); Mono % (Auto) 3.8 % (0.0-8.0); Neut # (Auto) 14.8 th/mm3 (1.8-7.7); Neut % (Auto) 81.1 % (16.0-70.0); Platelet Count 517 th/mm3 (150-450); Red Blood Count 3.51 mil/mm3 (4.00-5.30); White Blood Count 18.2 th/mm3 (4.0-11.0)
[2018-05-16 08:30] LABS: Albumin 1.7 g/dL (3.4-5.0); Anion Gap 15 meq/L (5-15); Aspartate Aminotransferase 17 U/L (15-37); Blood Urea Nitrogen 60 mg/dL (7-18); Calcium 8.8 mg/dL (8.5-10.1); Carbon Dioxide 17.9 meq/L (21.0-32.0); Chloride 104 meq/L (98-107); Glomerular Filtration Rate 11 mL/min (>89); Glucose,Random 119 mg/dL (74-106); Lipase 350 U/L (73-393); Potassium 3.7 meq/L (3.5-5.1); Sodium 137 meq/L (136-145)
--- NOTE | 2018-05-16 08:31 | XR ---
EXAM DATE: 05/16/2018 8:20 AM EDT AGE/SEX: 82 years / Female INDICATIONS: Short of breath, abdominal pain, nausea and vomiting CLINICAL DATA: This is the patient's initial encounter. Patient reports that signs and symptoms have been present for 1 day and indicates a pain score of 6/10. MEDICAL/SURGICAL HISTORY: Hypertension. Pancreatitis. Gastroesophageal reflux disease. Cholec ystectomy. Hysterectomy. J-tube COMPARISON: [facility] [place]ST SING[place] AP, 04/30/2018. . FINDINGS: Redemonstration of linear parenchymal opacities in the lower lung zones likely reflecting atelectasis /scarring. Cardiomediastinal contours are stable with persistent deviation of the trachea as describe d on prior exam. Bony thorax is intact. CONCLUSION: 1. No acute abnormality or significant interval change. Electronically signed by: Bhavin Montemayor MD 05/16/2018 8:29 AM EDT
[2018-05-16 08:33] LABS: Alkaline Phosphatase 211 U/L (45-117); Total Protein 7.5 g/dL (6.4-8.2)
[2018-05-16 08:41] LABS: Creatine Kinase 34 U/L (26-192)
[2018-05-16 08:58] LABS: Eosinophils 3 % (0-4); Lymphocytes 8 % (9-44); Metamyelocytes 1 % (0-1); Monocytes 4 % (0-8); Myelocytes 1 % (0-0)
[2018-05-16 08:59] LABS: Platelet Morphology Normal (Normal)
[2018-05-16] MEDS ORDERED: Morphine Inj 4 MG/ML Vial ONE (09:03)
[2018-05-16 09:48] LABS: Activated Partial Thrombo Time 36.2 sec (24.3-30.1); INR 1.3 Ratio; Prothrombin Time 12.7 sec (9.8-11.6)
[2018-05-16 11:17] LABS: Bacteria,Urine Few /hpf; Bilirubin,Urine Negative (Negative); Color,Urine Yellow (Yellw/Straw); Glucose,Urine (UA) Negative (Negative); Leukocyte Esterase,Urine Large (Negative); Nitrite,Urine Negative (Negative); Renal Epithelial Cells,Urine <1 /hpf; Specific Gravity,Urine 1.012 (1.002-1.035); Squamous Epithelial Cell,Urine 4 /hpf (0-5); Transitional Epi Cells,Urine <1 /hpf
[2018-05-16 11:18] LABS: Clarity,Urine Slightly Cloudy (Clear)
[2018-05-16] MEDS ORDERED: Morphine Sulfate Inj 2 MG/ML Vial IV.PUSH ONE ×2 (11:47→11:57)
[2018-05-16] MEDS ORDERED: Morphine Inj 4 MG/ML Vial IV.PUSH ONE (12:15)
[2018-05-16] MEDS: Potassium Chloride Inj 10 MEQ in Sodium Chloride 0.45 % Inj 1,000 ML IV.CONT SCH (15:19)
--- NOTE | 2018-05-16 15:41 | P.HPIM ---
<Guadalupe Monson E - Last Filed: 05/16/18 19:09> History of Present Illness Primary Care Physician: Hong Peterson MD Chief Complaint: Abdominal pain History of Present Illness: Ms. Larsen is an 82 y/o AAF with recurrent idiopathic pancreatitis. She has been hospitalized numerous times for issues with pain control related to recurrent pancreatitis. Her last admission was from 03/03/18 to 03/28/18 and she had biliary obstruction at that time. During that admission she underwent evaluation with ERCP (03/03/18) which noted multiple stones, migrated metal stent up into CBD, could not put plastic stent due to "kink" in current stent according to GI notes. She required PTC placement on 03/04 by IR which noted severe obstruction of the proximal common bile duct stent with very challenging recanalization requiring multiple wires and catheters. biliary stent placement. She had to have a repeat ERCP (03/07/18) and had to have the metal stent cleared of debris and they were able to confirm complete clearance of the stent with good emptying through the stent. She had a percutaneous cholangiogram on where the external portion of biliary drain was removed and the report showed some small hyperplasia within the distal aspect of the biliary stent but there is a patent channel down to the small bowel. Pt was seen in the ED at [facility] on 04/24/18 with abdominal pain. She had a CT Abd/ pelvis during that visit which noted portal venous stent, s/p cholecystectomy, GJ tube in place. Pts lipase was 110 at that time, Cr is 3.51/BUN 38, and WBC count 11. Pt was diagnosed with a UTI and given Keflex BID x 7 days. The urine culture noted probable contaminants. She was seen back in the ED on 04/30/18 with the same abdominal pain. Her labs at that time noted WBC count 17.1, Cr 3.72/BUN 35, GFR 14, Lipase 211. She was treated with supportive care, IVF and pain meds and improved and was discharged back to home. Pt presented back to the ED at [facility] on 05/16/18 with continued abdominal pain since her last admission per the pt but has been worse the last 3 weeks. She relates the pain to food intake which gradually worsens after eating. Pt also gets continuous TF at night. Pt has been having normal BMs. Denies any fevers or chills. She reports that the pain is the same pain that she has had previously with her pancreatitis. She has been trying to use Ball at night for the pain but its not helping. Her labs in the ED revealed WBC count 18.2, Cr 4.56/BUN 60, Lipase 350. Her LFTs were mostly WNL with TBili 0.3, AST 17, ALT less than 6, AlkPhos 211. She had a CT Abd/pelvis w/o IV contrast in the ED which noted stable and grossly unremarkable follow-up CT scan of the abdomen and pelvis compared to the prior study on 04/24/18, stable tiny 2 mm nonobstructing stone right kidney, and stable 1.4 cm right renal cyst. Pt reports that she was seen as an outpt by GI and was being set up for a repeat ERCP for stent exchange. Her UA was abnormal in the ED and he was given Rocephin. - Diagnosis (1) Idiopathic pancreatitis (2) Acute on chronic kidney failure (3) HTN (hypertension) (4) GERD (gastroesophageal reflux disease) - Inpatient Certification If this patient has been admitted as an Inpatient: I certify that the inpatient services were ordered in accordance with Medicare regulations governing the order. This includes certification that hospital inpatient services are reasonable and necessary and in the case of services not specified as inpatient-only under 42 CFR 419.22(n), that they are appropriately provided as inpatient services in accordance to with the 2-midnight benchmark under 43 CFR 412.3(e) Estimated Total Length of Stay (Days): 3 Plans for Post Hospital Care: Not yet determined Review of Systems Constitutional: Denies chills, Denies fever(s), Denies night sweats Eyes: Denies double vision, Denies loss of vision Ears, Nose, Mouth, and Throat: Denies mouth pain, Denies neck pain, Denies pain with swallowing, Denies post nasal drip Cardiovascular: Denies chest pain, Denies radiating jaw, neck or arm pain, Denies shortness of breath, Denies shortness of breath when lying down Respiratory: Denies cough, Denies stridor, Denies wheezing Gastrointestinal: Reports abdominal pain, Denies bright, red blood in stools Genitourinary: Denies difficulty urinating Musculoskeletal: Denies joint pain, Denies tingling Neurologic: Denies abnormal speech, Denies headache(s), Denies other visual disturbances Hematologic/Lymphatic: Denies easy bleeding PMFSH - History History Provided By: Patient - Medical History Medical History: Medical History (Last Updated 05/16/18 @ 15:15 by SUSHIL Obregon) Anxiety CKD (chronic kidney disease) stage 3, GFR 30-59 ml/min Encounter for gastrojejunal (GJ) tube placement GERD (gastroesophageal reflux disease) Hypertension Idiopathic pancreatitis Pancreatitis - Surgical History Surgical History: Surgical History (Last Updated 05/16/18 @ 15:15 by SUSHIL Obregon) History of total left knee replacement (TKR) Hx of cholecystectomy S/P ERCP - Family History Family History: Family History (Last Updated 05/16/18 @ 15:17 by SUSHIL Obregon) Other Family history non-contributory - Tobacco History Second Hand Smoke Exposure: No Smoking Status: Never smoker - Alcohol History How Often Do You Have a Drink Containing Alcohol: Never - Substance Use History Substance History: No History of Abuse - Travel History Recent Travel in the [place] Within the Last 8 Weeks: No Recent Travel Out of the Country Within the Last 8 Weeks: No - Immunization History Tetanus Immunization: Unsure Hx Influenza Vaccine This Season: Yes Medications and Allergies Allergies Allergy/AdvReac Type Severity Reaction Status Date / Time No Known Allergies Allergy Unverified 05/16/18 07:25 Home Medications Medication Instructions Recorded Confirmed Type hydrocodone-acetaminophen [Ball] 1 tab PO Q4H PRN 05/16/18 05/16/18 History csfruj-wuujijkf-nnxzuya [Creon] 1 tab PO TIDPC 05/16/18 05/16/18 History magnesium hydroxide [Presley Milk 311 mg PO QID PRN 05/16/18 05/16/18 History of Magnesia] meclizine 25 mg PO DAILY PRN 05/16/18 05/16/18 History metoprolol tartrate 25 mg PO BID 05/16/18 05/16/18 History nifedipine [Procardia XL] 60 mg PO BID 05/16/18 05/16/18 History pantoprazole 40 mg PO BID 05/16/18 05/16/18 History sucralfate 1 g PO TID 05/16/18 05/16/18 History Active Medications: Active Medications Acetaminophen (Tylenol) 650 mg PO Q4H PRN PRN Reason: Temp > 100.4 Al Hydroxide/Mg Hydroxide (Milk Of [place]) 30 ml PO Q12H PRN PRN Reason: Mild Constipation Potassium Chloride 10 meq/ (Sodium Chloride) 1,005 mls @ 84 mls/hr IV.CONT .[id number] [facility] Ondansetron HCl (Zofran Inj) 4 mg IV.PUSH Q6H PRN PRN Reason: NAUSEA OR VOMITING Senna/Docusate Sodium (Mattie-Colace) 1 tab PO BID [facility] Exam Vital signs: Vital Signs 05/16/18 07:07 05/16/18 07:35 05/16/18 07:37 Temperature 98.0 F 98.3 F Pulse Rate 84 76 Respiratory Rate 16 17 Blood Pressure 102/58 L 105/55 L Pulse Oximetry 100 100 99 05/16/18 11:08 05/16/18 11:56 05/16/18 13:05 Temperature Pulse Rate 63 72 Respiratory Rate 21 15 12 Blood Pressure 117/56 L 124/60 Pulse Oximetry 100 100 Intake & Output 05/15/18 05/16/18 05/16/18 18:59 06:59 18:59 Intake Total 500 / 500 Balance 500 / 500 Weight 63.957 kg Intake: IV 500 / 500 NS Inj 500 ML @ Wide Open IV. 500 / 500 SIG BOLUS ONE Rx#:[id number] Narrative: GENERAL: SKIN: Warm and dry. HEAD: Atraumatic. Normocephalic. EYES: Pupils equal and round. No scleral icterus. No injection or drainage. ENT: No nasal bleeding or discharge. Mucous membranes pink and moist. NECK: Trachea midline. No JVD. CARDIOVASCULAR: Regular rate and rhythm. RESPIRATORY: No accessory muscle use. Clear to auscultation. Breath sounds equal bilaterally. GASTROINTESTINAL: Abdomen soft, non-tender, nondistended. Hepatic and splenic margins not palpable. MUSCULOSKELETAL: Extremities without clubbing, cyanosis, or edema. No obvious deformities. NEUROLOGICAL: Awake and alert. No obvious cranial nerve deficits. Motor grossly within normal limits. Five out of 5 muscle strength in the arms and legs. Normal speech. PSYCHIATRIC: Appropriate mood and affect; insight and judgment normal. Results - Labs CBC & Chem 7: 05/16/18 07:55 05/16/18 07:55 Labs: Short CBC 05/16/18 Range/Units 07:55 WBC 18.2 H (4.0-11.0) th/mm3 Hgb 9.7 L (11.6-15.3) gm/dL Hct 30.0 L (35.0-46.0) % Plt Count 517 H (150-450) th/mm3 BMP 05/16/18 07:55 Sodium 137 Potassium 3.7 Chloride 104 Carbon Dioxide 17.9 L BUN 60 H Creatinine 4.56 H Calcium 8.8 Cardiac Enzymes 05/16/18 05/16/18 05/16/18 Range/Units 07:55 07:55 11:08 Total Creatine Kinase 34 Cancelled (26-192) U/L Troponin I Less than 0.02 L Less than 0.02 L (0.02-0.05) ng/mL Liver Function 05/16/18 Range/Units 07:55 Total Bilirubin 0.3 (0.2-1.0) mg/dL AST 17 (15-37) U/L ALT Less than 6 L (10-53) U/L Alkaline Phosphatase 211 H (45-117) U/L Albumin 1.7 L (3.4-5.0) g/dL Urine 05/16/18 Range/Units 10:20 Urine Color Yellow (Yellw/Straw) Urine Clarity Slightly cloudy (Clear) Urine pH 5.0 (5.0-8.5) Ur Specific [place] 1.012 (1.002-1.035) Urine Protein Negative (Neg-Trace) mg/dL Urine Glucose (UA) Negative (Negative) mg/dL - Imaging Impressions Chest X-Ray 05/16/18 07:37 CONCLUSION: 1. No acute abnormality or significant interval change. Abdomen/Pelvis CT 05/16/18 07:43 CONCLUSION: 1. Stable and grossly unremarkable follow-up CT scan of the abdomen and pelvis compared to the prior study. 2. Stable tiny 2 mm nonobstructing stone right kidney. 3. Stable 1.4 cm right renal cyst. Caprini VTE Risk Assessment Caprini VTE Risk Assessment: Moderate/High Risk (score >= 2) Caprini Risk Assessment Model: Point Value = 1 Point Value = 2 Point Value = 3 Point Value = 5 Age 41-60 Minor surgery BMI > 25 kg/m2 Swollen legs Varicose veins or History of unexplained or recurrent spontaneous Oral contraceptives or hormone replacement Sepsis (< 1 month) Serious lung disease, including pneumonia (< 1 month) Abnormal pulmonary function Acute myocardial infarction Congestive heart failure (< 1 month) History of inflammatory bowel disease Medical patient at bed rest Age 61-74 Arthroscopic surgery Major open surgery (> 45 min) Laparoscopic surgery (> 45 min) Malignancy Confined to bed (> 72 hours) Immobilizing plaster cast Central venous access Age >= 75 History of VTE Family history of VTE Factor V Leiden Prothrombin [id number] Lupus anticoagulant Anticardiolipin antibodies Elevated serum homocysteine Heparin-induced thrombocytopenia Other congenital or acquired thrombophilia Stroke (< 1 month) Elective arthroplasty Hip, pelvis, or leg fracture Acute spinal cord injury (< 1 month) Prophylaxis Regimen: Total Risk Factor Score Risk Level Prophylaxis Regimen 0-1 Low Early ambulation 2 Moderate Order ONE of the following: *Sequential Compression Device (SCD) *Heparin 5000 units SQ BID 3-4 Higher Order ONE of the following medications: *Heparin 5000 units SQ TID *Enoxaparin/Lovenox 40 mg SQ daily (WT < 150 kg, CrCl > 30 mL/min) *Enoxaparin/Lovenox 30 mg SQ daily (WT < 150 kg, CrCl > 10-29 mL/min) *Enoxaparin/Lovenox 30 mg SQ BID (WT < 150 kg, CrCl > 30 mL/min) AND/OR *Sequential Compression Device (SCD) 5 or more Highest Order ONE of the following medications: *Heparin 5000 units SQ TID (Preferred with Epidurals) *Enoxaparin/Lovenox 40 mg SQ daily (WT < 150 kg, CrCl > 30 mL/min) *Enoxaparin/Lovenox 30 mg SQ daily (WT < 150 kg, CrCl > 10-29 mL/min) *Enoxaparin/Lovenox 30 mg SQ BID (WT < 150 kg, CrCl > 30 mL/min) AND *Sequential Compression Device (SCD) Assessment and Plan - Assessment (1) Idiopathic pancreatitis Code(s): K85.00 - Idiopathic acute pancreatitis without necrosis or infection Status: Chronic Plan: - Ms. Larsen is an 82 y/o AAF with recurrent idiopathic pancreatitis. She has been hospitalized numerous times for issues with pain control related to recurrent pancreatitis. Her last admission was from 03/03/18 to 03/28/18 and she had biliary obstruction at that time. - During that admission she underwent evaluation with ERCP (03/03/18) which noted multiple stones, migrated metal stent up into CBD, could not put plastic stent due to "kink" in current stent according to GI notes. She required PTC placement on 03/04 by IR which noted severe obstruction of the proximal common bile duct stent with very challenging recanalization requiring multiple wires and catheters. biliary stent placement. She had to have a repeat ERCP (03/07/18) and had to have the metal stent cleared of debris and they were able to confirm complete clearance of the stent with good emptying through the stent. She had a percutaneous cholangiogram on 03/09/18 where the external portion of biliary drain was removed and the report showed some small hyperplasia within the distal aspect of the biliary stent but there is a patent channel down to the small bowel. - Pt presented back to the ED at [facility] on 05/16/18 with continued abdominal pain that is similar to her previous pancreatitis pain. - Her labs in the ED revealed WBC count 18.2, Cr 4.56/BUN 60, Lipase 350. Her LFTs were mostly WNL with TBili 0.3, AST 17, ALT less than 6, AlkPhos 211. - CT Abd/pelvis w/o IV contrast in the ED which noted stable and grossly unremarkable follow-up CT scan of the abdomen and pelvis compared to the prior study on 04/24/18, stable tiny 2 mm nonobstructing stone right kidney, and stable 1.4 cm right renal cyst. - Consult GI as pt was reportedly being set up for a repeat ERCP for stent exchange as an outpt in the near future. - Continue tube feeds at night via J tube - Give IVF - Pain control PRN with Ball and Morphine PRN - Monitor labs - Supportive care - DVT prophylaxis with SCDs (2) Acute on chronic kidney failure Code(s): N17.9 - Acute kidney failure, unspecified; N18.9 - Chronic kidney disease, unspecified Status: Acute Plan: - Pt with baseline stage 3 CKD, pt follows with Dr. Melara - Her labs at admission with a noted acute worsening of her baseline CKD. - Labs on 04/24 noted Cr is 3.51/BUN 38. Repeat labs on 04/30 with Cr 3.72/BUN 35 , GFR 14. - Labs at admission noted Cr 4.56/BUN 60 - Consult Nephrology - Cont. IVF - Monitor labs daily - Avoid nephrotoxic agents (3) HTN (hypertension) Code(s): I10 - Essential (primary) hypertension Status: Acute Plan: - Cont. home meds - Monitor (4) GERD (gastroesophageal reflux disease) Code(s): K21.9 - Gastro-esophageal reflux disease without esophagitis Status: Acute Plan: - PPI <Alexander Eddy - Last Filed: 05/18/18 12:54> History of Present Illness Primary Care Physician: Hong Peterson MD - Diagnosis (1) Idiopathic pancreatitis (2) Acute on chronic kidney failure (3) HTN (hypertension) (4) GERD (gastroesophageal reflux disease) (5) Anemia - Inpatient Certification If this patient has been admitted as an Inpatient: I certify that the inpatient services were ordered in accordance with Medicare regulations governing the order. This includes certification that hospital inpatient services are reasonable and necessary and in the case of services not specified as inpatient-only under 42 CFR 419.22(n), that they are appropriately provided as inpatient services in accordance to with the 2-midnight benchmark under 43 CFR 412.3(e) [facility] - Medical History Medical History: Medical History (Last Updated 05/16/18 @ 15:15 by SUSHIL Obregon) Anxiety CKD (chronic kidney disease) stage 3, GFR 30-59 ml/min Encounter for gastrojejunal (GJ) tube placement GERD (gastroesophageal reflux disease) Hypertension Idiopathic pancreatitis Pancreatitis - Surgical History Surgical History: Surgical History (Last Updated 05/16/18 @ 15:15 by SUSHIL Obregon) History of total left knee replacement (TKR) Hx of cholecystectomy S/P ERCP - Family History Family History: Family History (Last Updated 05/16/18 @ 15:17 by SUSHIL Obregon) Other Family history non-contributory Medications and Allergies Active Medications: Active Medications Acetaminophen (Tylenol) 650 mg PO Q4H PRN PRN Reason: Temp > 100.4, HEADACHE Last Admin: 05/18/18 02:22 Dose: 650 mg Hydrocodone Bitart/Acetaminophen (Ball 5/325) 1 tab PO Q6H PRN PRN Reason: pain 2-5 Al Hydroxide/Mg Hydroxide (Milk Of Magnesia Liq) 30 ml PO Q12H PRN PRN Reason: Mild Constipation Lipase/Protease/Amylase (Mando Kapoor ) 1 cap PO TIDPC [facility] Last Admin: 05/18/18 08:32 Dose: 1 cap Chlorhexidine Gluconate (Chlorhexidine 2% Cloth) 3 pack [employer] [facility] Stop: 05/20/18 19:37 Potassium Chloride 10 meq/ (Sodium Chloride) 1,005 mls @ 84 mls/hr IV.CONT .[id number] [facility] Last Admin: 05/18/18 03:11 Dose: Not Given Lactated Ringer's (Lr 1000 Ml Inj) 1,000 mls @ 30 mls/hr IV.SIG .Q24H [facility] Stop: 05/20/18 19:37 Last Admin: 05/17/18 21:10 Dose: Not Given Sodium Chloride (Ns Inj) 500 mls @ 30 mls/hr IV.SIG .Q10H [facility] Stop: 05/20/18 19:37 Meclizine HCl (Antivert) 25 mg PO DAILY PRN PRN Reason: DIZZINESS Metoprolol Tartrate (Lopressor) 25 mg PO BID [facility] Last Admin: 05/18/18 08:02 Dose: 25 mg Metoprolol Tartrate (Lopressor) 25 mg PO [employer] [facility] Stop: 05/20/18 19:37 Morphine Sulfate (Morphine Inj) 4 mg IV.PUSH Q8H PRN PRN Reason: PAIN 6-10;IF UNABLE TO TAKE PO Last Admin: 05/18/18 07:58 Dose: 4 mg Ondansetron HCl (Zofran Inj) 4 mg IV.PUSH Q6H PRN PRN Reason: NAUSEA OR VOMITING Last Admin: 05/17/18 20:57 Dose: 4 mg Pantoprazole Sodium (Protonix Inj) 40 mg IV.PUSH Q12H [facility] Last Admin: 05/18/18 05:22 Dose: 40 mg Povidone Iodine (Betadine 5% Antisepsis Kit) 1 applicatio EACH NARE [employer] [facility] Stop: 05/20/18 19:37 Senna/Docusate Sodium (Mattie-Colace) 1 tab PO BID [facility] Last Admin: 05/18/18 08:01 Dose: 1 tab Sterile Water (Free Water) 200 ml G-TUBE Q8HR [facility] Exam Vital signs: Vital Signs 05/17/18 18:04 05/17/18 20:00 05/18/18 00:00 Temperature 98 F 98.4 F Pulse Rate 70 61 Respiratory Rate 0 L 16 16 Blood Pressure 131/67 121/59 L Pulse Oximetry 98 61 L 05/18/18 01:52 05/18/18 02:09 05/18/18 04:00 Temperature 98.3 F 98.2 F 98.6 F Pulse Rate 66 64 68 Respiratory Rate 12 16 16 Blood Pressure 131/62 127/62 125/66 Pulse Oximetry 99 100 100 05/18/18 04:56 05/18/18 05:25 05/18/18 05:42 Temperature 98.3 F 98.1 F 98.4 F Pulse Rate 61 67 65 Respiratory Rate 12 12 12 Blood Pressure 139/63 122/58 L 113/57 L Pulse Oximetry 100 99 100 05/18/18 05:43 05/18/18 08:00 Temperature 98.1 F 97.9 F Pulse Rate 70 69 Respiratory Rate 12 18 Blood Pressure 144/63 H 134/63 Pulse Oximetry 99 100 Intake & Output 05/17/18 05/18/18 05/18/18 18:59 06:59 18:59 Intake Total 1005 / 1005 450 / 450 0 / 0 Balance 1005 / 1005 450 / 450 0 / 0 Weight 67.3 kg Intake: IV 1005 / 1005 KCl Inj 10 MEQ In 1/2 Normal 1005 / 1005 Saline Inj 1,000 ML @ 84 mls/hr IV.CONT .[id number] [facility] Rx#: [id number] Other 50 / 50 Rbc As-3 Leukoreduced Unit 50 / 50 [id number] Intake (Blood Product) Amt 400 / 400 0 / 0 Rbc As-3 Leukoreduced Unit 0 / 0 0 / 0 [id number] Rbc As-3 Leukoreduced Unit 400 / 400 [id number] Other: Other Intake Source Rbc As-3 Leukoreduced Unit Saline Solution [id number] # Voids 1 6 Results - Labs CBC & Chem 7: 05/18/18 11:10 05/18/18 11:10 Labs: Short CBC 05/18/18 Range/Units 11:10 WBC 16.7 H (4.0-11.0) th/mm3 Hgb 12.5 D (11.6-15.3) gm/dL Hct 38.5 (35.0-46.0) % Plt Count 445 (150-450) th/mm3 BMP 05/18/18 11:10 Sodium 141 Potassium 4.0 Chloride 106 Carbon Dioxide 18.9 L BUN 46 H Creatinine 3.74 H Calcium 9.2 D Liver Function 05/18/18 Range/Units 11:10 Total Bilirubin 0.3 (0.2-1.0) mg/dL AST 21 (15-37) U/L ALT 7 L (10-53) U/L Alkaline Phosphatase 203 H (45-117) U/L Albumin 1.6 L (3.4-5.0) g/dL Caprini VTE Risk Assessment Caprini Risk Assessment Model: Point Value = 1 Point Value = 2 Point Value = 3 Point Value = 5 Age 41-60 Minor surgery BMI > 25 kg/m2 Swollen legs Varicose veins or History of unexplained or recurrent spontaneous Oral contraceptives or hormone replacement Sepsis (< 1 month) Serious lung disease, including pneumonia (< 1 month) Abnormal pulmonary function Acute myocardial infarction Congestive heart failure (< 1 month) History of inflammatory bowel disease Medical patient at bed rest Age 61-74 Arthroscopic surgery Major open surgery (> 45 min) Laparoscopic surgery (> 45 min) Malignancy Confined to bed (> 72 hours) Immobilizing plaster cast Central venous access Age >= 75 History of VTE Family history of VTE Factor V Leiden Prothrombin [id number] Lupus anticoagulant Anticardiolipin antibodies Elevated serum homocysteine Heparin-induced thrombocytopenia Other congenital or acquired thrombophilia Stroke (< 1 month) Elective arthroplasty Hip, pelvis, or leg fracture Acute spinal cord injury (< 1 month) Prophylaxis Regimen: Total Risk Factor Score Risk Level Prophylaxis Regimen 0-1 Low Early ambulation 2 Moderate Order ONE of the following: *Sequential Compression Device (SCD) *Heparin 5000 units SQ BID 3-4 Higher Order ONE of the following medications: *Heparin 5000 units SQ TID *Enoxaparin/Lovenox 40 mg SQ daily (WT < 150 kg, CrCl > 30 mL/min) *Enoxaparin/Lovenox 30 mg SQ daily (WT < 150 kg, CrCl > 10-29 mL/min) *Enoxaparin/Lovenox 30 mg SQ BID (WT < 150 kg, CrCl > 30 mL/min) AND/OR *Sequential Compression Device (SCD) 5 or more Highest Order ONE of the following medications: *Heparin 5000 units SQ TID (Preferred with Epidurals) *Enoxaparin/Lovenox 40 mg SQ daily (WT < 150 kg, CrCl > 30 mL/min) *Enoxaparin/Lovenox 30 mg SQ daily (WT < 150 kg, CrCl > 10-29 mL/min) *Enoxaparin/Lovenox 30 mg SQ BID (WT < 150 kg, CrCl > 30 mL/min) AND *Sequential Compression Device (SCD) Assessment and Plan - Assessment (1) Idiopathic pancreatitis Code(s): K85.00 - Idiopathic acute pancreatitis without necrosis or infection Status: Chronic (2) Acute on chronic kidney failure Code(s): N17.9 - Acute kidney failure, unspecified; N18.9 - Chronic kidney disease, unspecified Status: Acute (3) HTN (hypertension) Code(s): I10 - Essential (primary) hypertension Status: Acute (4) GERD (gastroesophageal reflux disease) Code(s): K21.9 - Gastro-esophageal reflux disease without esophagitis Status: Acute (5) Anemia Code(s): D64.9 - Anemia, unspecified Status: Chronic - Attending Attestation Patient examined. Assessment and plan formulated with Guadalupe Monson PA-C. I agree with the above. <Guadalupe Monson - Last Filed: 05/16/18 19:09> (1) Idiopathic pancreatitis Qualifiers: Chronicity: chronic Qualified Code(s): K86.1 - Other chronic pancreatitis (2) Acute on chronic kidney failure Qualifiers: Chronic kidney disease stage: stage 3 (moderate) <Alexander Eddy - Last Filed: 05/18/18 12:54> (1) Idiopathic pancreatitis Qualifiers: Chronicity: chronic Qualified Code(s): K86.1 - Other chronic pancreatitis (2) Acute on chronic kidney failure Qualifiers: Chronic kidney disease stage: stage 3 (moderate)
[2018-05-16] MEDS ORDERED: Morphine Inj 4 MG/ML Vial IV.PUSH PRN (15:46)
[2018-05-16] MEDS: Pantoprazole Inj 40 MG Vial IV.PUSH SCH (17:29)
[2018-05-16] MEDS: Morphine Inj 4 MG/ML Vial IV.PUSH PRN (17:29)
[2018-05-16] MEDS: Lipase/Protease/Amylase 12/38/60 DR Capsule PO SCH (17:29)
[2018-05-16] MEDS: Metoprolol Tartrate 25 MG Tablet PO SCH (21:55)
[2018-05-16] MEDS: Senna/Docusate Sodium 8.6/50 MG Tablet PO SCH (22:04)
[2018-05-17] MEDS: Morphine Inj 4 MG/ML Vial IV.PUSH PRN ×3 (01:57→20:57)
[2018-05-17] MEDS: Potassium Chloride Inj 10 MEQ in Sodium Chloride 0.45 % Inj 1,000 ML IV.CONT SCH ×2 (02:40→15:53)
[2018-05-17] MEDS: Pantoprazole Inj 40 MG Vial IV.PUSH SCH ×2 (06:28→18:04)
[2018-05-17 07:40] LABS: Baso # (Auto) 0.1 th/mm3 (0.0-0.2); Eos # (Auto) 0.5 th/mm3 (0.0-0.4); Eos % (Auto) 3.9 % (0.0-4.0); Hemoglobin 7.6 gm/dL (11.6-15.3); Lymph # (Auto) 1.9 th/mm3 (1.0-4.8); Lymph % (Auto) 13.7 % (9.0-44.0); Mean Corpuscular HGB Conc 31.7 % (32.0-36.0); Mean Corpuscular Hemoglobin 27.3 pg (27.0-34.0); Mean Corpuscular Volume 85.9 fL (80.0-100.0); Mean Platelet Volume 8.3 fL (7.0-11.0); Mono # (Auto) 0.6 th/mm3 (0.0-0.9); Mono % (Auto) 4.6 % (0.0-8.0); Neut # (Auto) 10.4 th/mm3 (1.8-7.7); Neut % (Auto) 76.8 % (16.0-70.0); Platelet Count 446 th/mm3 (150-450); Red Blood Count 2.79 mil/mm3 (4.00-5.30); Red Cell Distribution Width 17.4 % (11.6-17.2); White Blood Count 13.5 th/mm3 (4.0-11.0)
[2018-05-17 07:54] LABS: Albumin 1.5 g/dL (3.4-5.0); Anion Gap 15 meq/L (5-15); Aspartate Aminotransferase 10 U/L (15-37); Blood Urea Nitrogen 51 mg/dL (7-18); Calcium 8.2 mg/dL (8.5-10.1); Chloride 110 meq/L (98-107); Glomerular Filtration Rate 13 mL/min (>89); Glucose,Random 75 mg/dL (74-106); Lipase 200 U/L (73-393); Sodium 143 meq/L (136-145)
[2018-05-17 07:55] LABS: Alkaline Phosphatase 165 U/L (45-117); Total Protein 6.1 g/dL (6.4-8.2)
[2018-05-17 07:57] LABS: Potassium 3.5 meq/L (3.5-5.1)
[2018-05-17] MEDS: Lipase/Protease/Amylase 12/38/60 DR Capsule PO SCH ×3 (08:42→18:04)
[2018-05-17] MEDS: Metoprolol Tartrate 25 MG Tablet PO SCH ×2 (08:43→20:57)
[2018-05-17] MEDS: Senna/Docusate Sodium 8.6/50 MG Tablet PO SCH ×2 (08:43→21:12)
--- NOTE | 2018-05-17 08:48 | ECG ---
Date Performed: 05/16/2018 Time Performed: 08:54:12 PTAGE: 82 years EKG: Sinus rhythm NORMAL ECG PREVIOUS TRACING : 04/30/2018 09.33 Since the previous tracing, no significant change noted DOCTOR: Ryan Faustin Interpretating Date/Time 05/17/2018 08:47:08
--- NOTE | 2018-05-17 13:07 | P.DIET ---
Nutritional Evaluation Type of nutrition evaluation: initial Nutrition consult regarding: Tube Feeding Subjective Subjective Comments: Reports pain after eating food. Pt has night time TF at home. Objective - Diagnosis Abdominal Pain - Objective % IBW: 110 Body Weight Used for Calculations: Actual (65 kg) Energy Needs - Lower Range (kCal/kg): 25 Energy Needs - Upper Range (kCal/kg): 30 Lower Limit kCal/kg (kCals): 1,625 Upper Limit kCal/kg (kCals): 1,950 Lower Limit Protein Factor (Grams per Kg): 1 Upper Limit Protein Factor (Grams per Kg): 1.5 Lower Protein Needs (Protein): 65 Upper Protein Needs (Protein): 98 Dietitian Reviewed in Medical Record: Current diet, Curent medications, Intake & Output, Labs, Medical history, Tube feeding Objective Comments: Hx includes anxiety, CKD, g-j tube, GERD, idiopathic pancreatitis Feeding - Current Tube Feeding Tube Feeding Product: Jevity 1.5 Tube Feeding Method: Pump Tube Feeding Rate: 55 (55 mls/hr x 12 hours) Tube Feeding Route: jejunostomy Current kCals Provided by Tube Feedin Current Protein Provided by Tube Feeding (gPRO): 42 Assessment Assessment: Pt is at high nutrition risk 2' to her dependence on supplemental TFing. Current order is for Jevity 1.5 @ 55 mls/hr form [id number]. Pt also receives a regular diet however, po intake is not yet established. Recommend continue with current diet and TF. RD will monitor po intake and adjust TF recs accordingly. Recommendations: Continue Jevity 1.5 @ 55 mls/hr from [id number] Diet as tolerated Dietitian to Monitor: Lab values, Intake & Output, Diet tolerance, Tube feeding tolerance, Weight change, PO Intake, Medical course
--- NOTE | 2018-05-17 13:49 | P.CONGI ---
History of Present Illness Consult date: 05/17/18 Consult reason: Idiopathic pancreatitis Chief complaint: UTI;ACUTE CHROIC RENAL FAILURE History of Present Illness: This is a 82 yo F with PMH significant for recurrent idiopathic pancreatitis who has a metallic biliary stent in place and gastroparesis with a GJ tube for overnight feedings. Pt recently in hospital and seen by our service for occluded CBD stent, initially unable to place metallic stent, pt underwent PTC and later a metallic stent was able to be placed and external biliary stent was removed. Pt last sen in the office on May 05 with complaints of continued abdominal pain, notes two visits to the ED prior to that for same with negative CT findings. Pt now admitted to the hospital with complaints of continued upper abdominal pain, states goes across her entire upper abdomen. Pain is constant, described as sharp. States pain is worse with food. Associated nausea , no emesis. Does tube feeding overnight, reports no issues or complications with feedings, tolerating well. Also reports constipation, states she has this issue chronically and takes Miralax and needed with good relief. <Zahira Mora - Last Filed: 05/17/18 13:26> Review of Systems Gastrointestinal: Reports abdominal pain, Reports constipation, Reports nausea, Denies heartburn, Denies vomiting <Zahira Mora - Last Filed: 05/17/18 13:26> [facility] - History History Provided By: Patient - Medical History Medical History: Medical History (Last Reviewed 05/17/18 @ 06:49 by Fer Pereyra) Anxiety CKD (chronic kidney disease) stage 3, GFR 30-59 ml/min Encounter for gastrojejunal (GJ) tube placement GERD (gastroesophageal reflux disease) Hypertension Idiopathic pancreatitis Pancreatitis - Surgical History Surgical History: Surgical History (Last Reviewed 05/17/18 @ 06:49 by Fer Pereyra) History of total left knee replacement (TKR) Hx of cholecystectomy S/P ERCP - Family History Family History: Family History (Last Updated 05/16/18 @ 15:17 by SUSHIL Obregon) Other Family history non-contributory - Tobacco History Second Hand Smoke Exposure: No Smoking Status: Never smoker - Alcohol History How Often Do You Have a Drink Containing Alcohol: Never - Substance Use History Substance History: No History of Abuse - Travel History Recent Travel in the [place] Within the Last 8 Weeks: No Recent Travel Out of the Country Within the Last 8 Weeks: No - Immunization History Tetanus Immunization: Unsure Hx Influenza Vaccine This Season: Yes <IsaiahZahira gamez - Last Filed: 05/17/18 13:26> - Medical History Medical History: Medical History (Last Reviewed 05/17/18 @ 06:49 by Fer Pereyra) Anxiety CKD (chronic kidney disease) stage 3, GFR 30-59 ml/min Encounter for gastrojejunal (GJ) tube placement GERD (gastroesophageal reflux disease) Hypertension Idiopathic pancreatitis Pancreatitis - Surgical History Surgical History: Surgical History (Last Reviewed 05/17/18 @ 06:49 by Fer Pereyra) History of total left knee replacement (TKR) Hx of cholecystectomy S/P ERCP - Family History Family History: Family History (Last Updated 05/16/18 @ 15:17 by SUSHIL Obregon) Other Family history non-contributory <Chula Schwartz - Last Filed: 05/17/18 19:05> Medications and Allergies Active Medications: Active Medications Acetaminophen (Tylenol) 650 mg PO Q4H PRN PRN Reason: Temp > 100.4 Hydrocodone Bitart/Acetaminophen (Alice 5/325) 1 tab PO Q6H PRN PRN Reason: pain 2-5 Al Hydroxide/Mg Hydroxide (Milk Of Magnesia Liq) 30 ml PO Q12H PRN PRN Reason: Mild Constipation Lipase/Protease/Amylase (Mando Kapoor ) 1 cap PO TIDPC [facility] Last Admin: 05/17/18 12:31 Dose: 1 cap Potassium Chloride 10 meq/ (Sodium Chloride) 1,005 mls @ 84 mls/hr IV.CONT .[id number] [facility] Last Admin: 05/17/18 02:40 Dose: 84 mls/hr Meclizine HCl (Antivert) 25 mg PO DAILY PRN PRN Reason: DIZZINESS Metoprolol Tartrate (Lopressor) 25 mg PO BID [facility] Last Admin: 05/17/18 08:43 Dose: 25 mg Morphine Sulfate (Morphine Inj) 4 mg IV.PUSH Q8H PRN PRN Reason: PAIN 6-10;IF UNABLE TO TAKE PO Last Admin: 05/17/18 12:30 Dose: 4 mg Ondansetron HCl (Zofran Inj) 4 mg IV.PUSH Q6H PRN PRN Reason: NAUSEA OR VOMITING Last Admin: 05/16/18 16:04 Dose: 4 mg Pantoprazole Sodium (Protonix Inj) 40 mg IV.PUSH Q12H [facility] Last Admin: 05/17/18 06:28 Dose: 40 mg Senna/Docusate Sodium (Mattie-Colace) 1 tab PO BID [facility] Last Admin: 05/17/18 08:43 Dose: 1 tab <Zahira Mora - Last Filed: 05/17/18 13:26> Active Medications: Active Medications Acetaminophen (Tylenol) 650 mg PO Q4H PRN PRN Reason: Temp > 100.4, [place]AC[place] Last Admin: 05/17/18 15:52 Dose: 650 mg Hydrocodone Bitart/Acetaminophen (Alice 5/325) 1 tab PO Q6H PRN PRN Reason: pain 2-5 Al Hydroxide/Mg Hydroxide (Milk Of Magnesia Liq) 30 ml PO Q12H PRN PRN Reason: Mild Constipation Lipase/Protease/Amylase (Mando Kapoor ) 1 cap PO TIDPC [facility] Last Admin: 05/17/18 18:04 Dose: 1 cap Potassium Chloride 10 meq/ (Sodium Chloride) 1,005 mls @ 84 mls/hr IV.CONT .[id number] [facility] Last Admin: 05/17/18 15:53 Dose: 84 mls/hr Meclizine HCl (Antivert) 25 mg PO DAILY PRN PRN Reason: DIZZINESS Metoprolol Tartrate (Lopressor) 25 mg PO BID [facility] Last Admin: 05/17/18 08:43 Dose: 25 mg Morphine Sulfate (Morphine Inj) 4 mg IV.PUSH Q8H PRN PRN Reason: PAIN 6-10;IF UNABLE TO TAKE PO Last Admin: 05/17/18 12:30 Dose: 4 mg Ondansetron HCl (Zofran Inj) 4 mg IV.PUSH Q6H PRN PRN Reason: NAUSEA OR VOMITING Last Admin: 05/17/18 15:52 Dose: 4 mg Pantoprazole Sodium (Protonix Inj) 40 mg IV.PUSH Q12H [facility] Last Admin: 05/17/18 18:04 Dose: 40 mg Senna/Docusate Sodium (Mattie-Colace) 1 tab PO BID [facility] Last Admin: 05/17/18 08:43 Dose: 1 tab <Chula Schwartz - Last Filed: 05/17/18 19:05> Allergies Allergy/AdvReac Type Severity Reaction Status Date / Time No Known Allergies Allergy Unverified 05/16/18 07:25 Home Medications Medication Instructions Recorded Confirmed Type hydrocodone-acetaminophen [Alice] 1 tab PO Q4H PRN 05/16/18 05/16/18 History uufrag-wcmthiee-escehez [Creon] 1 tab PO TIDPC 05/16/18 05/16/18 History magnesium hydroxide [Presley Milk 311 mg PO QID PRN 05/16/18 05/16/18 History of Magnesia] meclizine 25 mg PO DAILY PRN 05/16/18 05/16/18 History metoprolol tartrate 25 mg PO BID 05/16/18 05/16/18 History nifedipine [Procardia XL] 60 mg PO BID 05/16/18 05/16/18 History pantoprazole 40 mg PO BID 05/16/18 05/16/18 History sucralfate 1 g PO TID 05/16/18 05/16/18 History Exam Vital signs: Vital Signs 05/16/18 15:13 05/16/18 16:50 05/16/18 20:00 Temperature 97.7 F 98.1 F Pulse Rate 69 65 77 Respiratory Rate 16 20 18 Blood Pressure 120/62 160/57 H 112/60 Pulse Oximetry 99 99 99 05/17/18 00:00 05/17/18 08:00 05/17/18 12:00 Temperature 97.9 F 98.5 F 97.4 F L Pulse Rate 78 77 68 Respiratory Rate 18 18 16 Blood Pressure 123/60 128/61 108/56 L Pulse Oximetry 97 100 100 Intake & Output 05/16/18 05/17/18 05/17/18 18:59 06:59 18:59 Intake Total 500 / 500 100 / 100 Balance 500 / 500 100 / 100 Weight 63.957 kg 65 kg Intake: IV 500 / 500 100 / 100 NS Inj 500 ML @ Wide Open IV. 500 / 500 SIG BOLUS ONE Rx#:[id number] Other: # Voids 3 - Constitutional no acute distress - Routine HEENT Exam Head: Present: normocephalic, atraumatic - Routine Respiratory Exam Absent: accessory muscle use - Routine Cardiovascular Exam Present: RRR - Routine Abdominal Exam Present: soft, normoactive bowel sounds, tenderness (mild upper abdominal tenderness ). Absent: distended, rebound, guarding - Routine Neurological Exam Present: alert, oriented X3 <Jamison Morasey - Last Filed: 05/17/18 13:26> Vital signs: Vital Signs 05/16/18 20:00 05/17/18 00:00 05/17/18 08:00 Temperature 98.1 F 97.9 F 98.5 F Pulse Rate 77 78 77 Respiratory Rate 18 18 18 Blood Pressure 112/60 123/60 128/61 Pulse Oximetry 99 97 100 05/17/18 12:00 05/17/18 18:04 Temperature 97.4 F L Pulse Rate 68 Respiratory Rate 16 0 L Blood Pressure 108/56 L Pulse Oximetry 100 Intake & Output 05/17/18 05/17/18 05/18/18 06:59 18:59 06:59 Intake Total 100 / 100 1005 / 1005 Balance 100 / 100 1005 / 1005 Weight 65 kg Intake: IV 100 / 100 1005 / 1005 KCl Inj 10 MEQ In 1/2 Normal 1005 / 1005 Saline Inj 1,000 ML @ 84 mls/hr IV.CONT .[id number] [facility] Rx#: [id number] Other: # Voids 3 1 <Chula Schwartz - Last Filed: 05/17/18 19:05> Results - Labs CBC & Chem 7: 05/17/18 06:56 05/17/18 06:56 Labs: Laboratory Results - last 24 hr 05/17/18 05/17/18 06:56 06:56 WBC 13.5 H RBC 2.79 L Hgb 7.6 L D Hct 24.0 L MCV 85.9 MCH 27.3 MCHC 31.7 L RDW 17.4 H Plt Count 446 MPV 8.3 Neut % (Auto) 76.8 H Lymph % (Auto) 13.7 [place] % (Auto) 4.6 Eos % (Auto) 3.9 Baso % (Auto) 1.0 Neut # (Auto) 10.4 H Lymph # (Auto) 1.9 [place] # (Auto) 0.6 Eos # (Auto) 0.5 H Baso # (Auto) 0.1 WBC Differential . Differential Comment Auto diff final Sodium 143 Potassium 3.5 Chloride 110 H Carbon Dioxide 18.0 L Anion Gap 15 BUN 51 H Creatinine 4.08 H Estimated GFR 13 L Random Glucose 75 Calcium 8.2 L Total Bilirubin 0.2 AST 10 L ALT Less than 6 L Alkaline Phosphatase 165 H Total Protein 6.1 L D Albumin 1.5 L Lipase 200 <Zahira Mora - Last Filed: 05/17/18 13:26> - Labs CBC & Chem 7: 05/17/18 06:56 05/17/18 06:56 Labs: Laboratory Results - last 24 hr 05/17/18 05/17/18 06:56 06:56 WBC 13.5 H RBC 2.79 L Hgb 7.6 L D Hct 24.0 L MCV 85.9 MCH 27.3 MCHC 31.7 L RDW 17.4 H Plt Count 446 MPV 8.3 Neut % (Auto) 76.8 H Lymph % (Auto) 13.7 [place]aufman % (Auto) 4.6 Eos % (Auto) 3.9 Baso % (Auto) 1.0 Neut # (Auto) 10.4 H Lymph # (Auto) 1.9 [place]man # (Auto) 0.6 Eos # (Auto) 0.5 H Baso # (Auto) 0.1 WBC Differential . Differential Comment Auto diff final Sodium 143 Potassium 3.5 Chloride 110 H Carbon Dioxide 18.0 L Anion Gap 15 BUN 51 H Creatinine 4.08 H Estimated GFR 13 L Random Glucose 75 Calcium 8.2 L Total Bilirubin 0.2 AST 10 L ALT Less than 6 L Alkaline Phosphatase 165 H Total Protein 6.1 L D Albumin 1.5 L Lipase 200 <Chula Schwartz - Last Filed: 05/17/18 19:05> Assessment and Plan (1) Gastroparesis Status: Acute Code(s): K31.84 - Gastroparesis (2) Idiopathic pancreatitis Status: Chronic Code(s): K85.00 - Idiopathic acute pancreatitis without necrosis or infection - Plan Assessment: - Recurrent idiopathic pancreatitis- Complaining of upper abdominal pain, located across entire upper abdomen, pain is constant, described as sharp. Worse with PO intake. Associated nausea, denies emesis. Current LFTs: AST-10 ALT-<6 Alk phos-165 T bili-0.2 Lipase-200 Recent hospitalization for same- initial ERCP unable to place stent due to kink in current stent, pt underwent PTC by IR, repeat ERCP done on 03/07 with successful metallic biliary stent placement and pt later had external biliary drain removed. Follow up in office in April with continued abdominal pain, noted to be seen in ER twice prior with same complaints, CT abdomen was negative. Pt was scheduled for repeat ERCP with stent exchange which she has not had done yet CT abdomen and pelvis WO IV contrast (05/16) Stable and grossly unremarkable follow-up CT scan compare to prior study. Stable tiny 2 mm nonobstructing stone right kidney. Stable 1.4 cm right renal cyst. - Gastroparesis with GJ tube- does night feeding through J tube- reports tolerating well Plan: ERCP with stent exchanging- timing ? Obtain consent Continue with tube feeding as tolerated Creon Bowel regimen Further recommendations based on clinical course Pt has been seen and examined by myself and Dr. Schwartz and this note is written on her behalf <Zahira Mora - Last Filed: 05/17/18 13:26> (1) Gastroparesis Status: Acute Code(s): K31.84 - Gastroparesis (2) Idiopathic pancreatitis Status: Chronic Code(s): K85.00 - Idiopathic acute pancreatitis without necrosis or infection - Attending Attestation seen, examined agree with above discussed with daughter possible ercp/stent evaluation or Wednesday <Chula Schwartz - Last Filed: 05/17/18 19:05> <Zahira Mora - Last Filed: 05/17/18 13:26> (2) Idiopathic pancreatitis Qualifiers: Chronicity: chronic Qualified Code(s): K86.1 - Other chronic pancreatitis <Chula Schwartz - Last Filed: 05/17/18 19:05> (2) Idiopathic pancreatitis Qualifiers: Chronicity: chronic Qualified Code(s): K86.1 - Other chronic pancreatitis
[2018-05-17] MEDS: Acetaminophen 325 MG Tablet PO PRN (15:52)
--- NOTE | 2018-05-17 19:03 | P.PNIM ---
Subjective Interval history: Pt continues to have abdominal pain She is not eating much of anything due to the abdominal pain Pt requesting that nursing staff clean more thoroughly around her G-J tube Physical Exam Vital signs: Vital Signs 05/16/18 20:00 05/17/18 00:00 05/17/18 08:00 Temperature 98.1 F 97.9 F 98.5 F Pulse Rate 77 78 77 Respiratory Rate 18 18 18 Blood Pressure 112/60 123/60 128/61 Pulse Oximetry 99 97 100 05/17/18 12:00 05/17/18 18:04 Temperature 97.4 F L Pulse Rate 68 Respiratory Rate 16 0 L Blood Pressure 108/56 L Pulse Oximetry 100 Intake & Output 05/16/18 05/17/18 05/17/18 18:59 06:59 18:59 Intake Total 500 / 500 100 / 100 1005 / 1005 Balance 500 / 500 100 / 100 1005 / 1005 Weight 63.957 kg 65 kg Intake: IV 500 / 500 100 / 100 1005 / 1005 KCl Inj 10 MEQ In 1/2 Normal 1005 / 1005 Saline Inj 1,000 ML @ 84 mls/hr IV.CONT .[id number] [facility] Rx#: [id number] NS Inj 500 ML @ Wide Open IV. 500 / 500 SIG BOLUS ONE Rx#:[id number] Other: # Voids 3 1 Narrative: GENERAL: NAD, AAOx3 CARDIO: Regular RESP: Breath sounds equal bilaterally. No accessory muscle use. ABD: Abdomen soft, upper abdominal tenderness. GJ tube in place, no drainage or erythema EXT: No cyanosis, or edema. Results - Labs CBC & Chem 7: 05/18/18 11:10 05/18/18 11:10 Laboratory Results - last 24 hr 05/17/18 05/17/18 06:56 06:56 WBC 13.5 H RBC 2.79 L Hgb 7.6 L D Hct 24.0 L MCV 85.9 MCH 27.3 MCHC 31.7 L RDW 17.4 H Plt Count 446 MPV 8.3 Neut % (Auto) 76.8 H Lymph % (Auto) 13.7 [place] % (Auto) 4.6 Eos % (Auto) 3.9 Baso % (Auto) 1.0 Neut # (Auto) 10.4 H Lymph # (Auto) 1.9 [place] # (Auto) 0.6 Eos # (Auto) 0.5 H Baso # (Auto) 0.1 WBC Differential . Differential Comment Auto diff final Sodium 143 Potassium 3.5 Chloride 110 H Carbon Dioxide 18.0 L Anion Gap 15 BUN 51 H Creatinine 4.08 H Estimated GFR 13 L Random Glucose 75 Calcium 8.2 L Total Bilirubin 0.2 AST 10 L ALT Less than 6 L Alkaline Phosphatase 165 H Total Protein 6.1 L D Albumin 1.5 L Lipase 200 Microbiology 05/16/18 10:20 Clean Catch Urine Urine Culture - Final >100,000 cfu/mL mixed ev (probable contaminants) - Imaging ITS Impressions Chest X-Ray 05/16/18 07:37 CONCLUSION: 1. No acute abnormality or significant interval change. Abdomen/Pelvis CT 05/16/18 07:43 CONCLUSION: 1. Stable and grossly unremarkable follow-up CT scan of the abdomen and pelvis compared to the prior study. 2. Stable tiny 2 mm nonobstructing stone right kidney. 3. Stable 1.4 cm right renal cyst. Assessment and Plan - Assessment (1) Idiopathic pancreatitis Code(s): K85.00 - Idiopathic acute pancreatitis without necrosis or infection Status: Chronic Plan: - Ms. Larsen is an 82 y/o AAF with recurrent idiopathic pancreatitis. She has been hospitalized numerous times for issues with pain control related to recurrent pancreatitis. Her last admission was from 03/03/18 to 03/28/18 and she had biliary obstruction at that time. - During that admission she underwent evaluation with ERCP (03/03/18) which noted multiple stones, migrated metal stent up into CBD, could not put plastic stent due to "kink" in current stent according to GI notes. She required PTC placement on 03/04 by IR which noted severe obstruction of the proximal common bile duct stent with very challenging recanalization requiring multiple wires and catheters. biliary stent placement. She had to have a repeat ERCP (03/07/18) and had to have the metal stent cleared of debris and they were able to confirm complete clearance of the stent with good emptying through the stent. She had a percutaneous cholangiogram on 03/09/18 where the external portion of biliary drain was removed and the report showed some small hyperplasia within the distal aspect of the biliary stent but there is a patent channel down to the small bowel. - Pt presented back to the ED at [facility] on 05/16/18 with continued abdominal pain that is similar to her previous pancreatitis pain. - Her labs in the ED revealed WBC count 18.2, Cr 4.56/BUN 60, Lipase 350. Her LFTs were mostly WNL with TBili 0.3, AST 17, ALT less than 6, AlkPhos 211. - CT Abd/pelvis w/o IV contrast in the ED which noted stable and grossly unremarkable follow-up CT scan of the abdomen and pelvis compared to the prior study on 04/24/18, stable tiny 2 mm nonobstructing stone right kidney, and stable 1.4 cm right renal cyst. - Appreciate consult from GI - Pt is planned for ERCP later this week per GI notes - Pt requesting possible celiac plexus block for her chronic abdominal pain. This may be done outpt vs. inpatient if available as an inpatient - Continue tube feeds at night via J tube with Jevity 1.5 @ 55mL/hr from 1900 to 0700 - Cont. IVF - Oral intake as tolerated - Pain control PRN with [place] and Morphine PRN - Monitor labs - Supportive care - DVT prophylaxis with SCDs (2) Acute on chronic kidney failure Code(s): N17.9 - Acute kidney failure, unspecified; N18.9 - Chronic kidney disease, unspecified Status: Acute Plan: - Pt with baseline stage 3 CKD, pt follows with Dr. Melara - Her labs at admission with a noted acute worsening of her baseline CKD. - Labs on 04/24 noted Cr is 3.51/BUN 38. Repeat labs on 04/30 with Cr 3.72/BUN 35 , GFR 14. - Labs at admission noted Cr 4.56/BUN 60 - Await consult from Nephrology - Repeat labs on 05/17 with Cr 4.08/BUN 51 - Cont. IVF - Monitor labs daily - Avoid nephrotoxic agents (3) HTN (hypertension) Code(s): I10 - Essential (primary) hypertension Status: Acute Plan: - Cont. home meds - Monitor (4) GERD (gastroesophageal reflux disease) Code(s): K21.9 - Gastro-esophageal reflux disease without esophagitis Status: Acute Plan: - PPI (5) Anemia Code(s): D64.9 - Anemia, unspecified Status: Chronic Plan: - Pt with an acute decrease in her chronic anemia on 05/17 with Hgb down to 7.6 - No noted active bleeding - Transfuse 2 units PRBCs with Lasix 20mg IV in between the two units - Repeat labs in AM - Attending Attestation Patient examined. Assessment and plan formulated with Guadalupe Monson PA-C. I agree with the above. Case d/w pt and daughter (by phone). All questions were answered to the best of my ability. (1) Idiopathic pancreatitis Qualifiers: Chronicity: chronic Qualified Code(s): K86.1 - Other chronic pancreatitis (2) Acute on chronic kidney failure Qualifiers: Chronic kidney disease stage: stage 3 (moderate)
[2018-05-17] MEDS ORDERED: Metoprolol Tartrate 25 MG Tablet PO SCH (19:45)
[2018-05-17] MEDS ORDERED: Chlorhexidine Gluconate 2% 1 Pack (2 Cloths) TOPICAL SCH (19:45)
[2018-05-17] MEDS ORDERED: Sodium Chlor 0.9% Inj 500 ML IV.SIG SCH (20:00)
[2018-05-18] MEDS: Acetaminophen 325 MG Tablet PO PRN (02:22)
[2018-05-18] MEDS: Potassium Chloride Inj 10 MEQ in Sodium Chloride 0.45 % Inj 1,000 ML IV.CONT SCH ×2 (03:11→15:39)
[2018-05-18] MEDS: Pantoprazole Inj 40 MG Vial IV.PUSH SCH ×2 (05:22→16:05)
[2018-05-18] MEDS: Morphine Inj 4 MG/ML Vial IV.PUSH PRN ×2 (07:58→15:51)
[2018-05-18] MEDS: Senna/Docusate Sodium 8.6/50 MG Tablet PO SCH ×2 (08:01→23:23)
[2018-05-18] MEDS: Metoprolol Tartrate 25 MG Tablet PO SCH ×2 (08:02→23:22)
[2018-05-18] MEDS: Lipase/Protease/Amylase 12/38/60 DR Capsule PO SCH ×3 (08:32→17:56)
--- NOTE | 2018-05-18 11:40 | P.PNGI ---
Subjective Interval history: Pt is resting in bed, still with significant abd pain <Alex Hanks - Last Filed: 05/18/18 11:30> Physical Exam Vital signs: Vital Signs 05/17/18 12:00 05/17/18 18:04 05/17/18 20:00 Temperature 97.4 F L 98 F Pulse Rate 68 70 Respiratory Rate 16 0 L 16 Blood Pressure 108/56 L 131/67 Pulse Oximetry 100 98 05/18/18 00:00 05/18/18 01:52 05/18/18 02:09 Temperature 98.4 F 98.3 F 98.2 F Pulse Rate 61 66 64 Respiratory Rate 16 12 16 Blood Pressure 121/59 L 131/62 127/62 Pulse Oximetry 61 L 99 100 05/18/18 04:00 05/18/18 04:56 05/18/18 05:25 Temperature 98.6 F 98.3 F 98.1 F Pulse Rate 68 61 67 Respiratory Rate 16 12 12 Blood Pressure 125/66 139/63 122/58 L Pulse Oximetry 100 100 99 05/18/18 05:42 05/18/18 05:43 05/18/18 08:00 Temperature 98.4 F 98.1 F 97.9 F Pulse Rate 65 70 73 Respiratory Rate 12 12 18 Blood Pressure 113/57 L 144/63 H 134/63 Pulse Oximetry 100 99 100 Intake & Output 05/17/18 05/18/18 05/18/18 18:59 06:59 18:59 Intake Total 1005 / 1005 450 / 450 0 / 0 Balance 1005 / 1005 450 / 450 0 / 0 Weight 67.3 kg Intake: IV 1005 / 1005 KCl Inj 10 MEQ In 1/2 Normal 1005 / 1005 Saline Inj 1,000 ML @ 84 mls/hr IV.CONT .[id number] [facility] Rx#: [id number] Other 50 / 50 Rbc As-3 Leukoreduced Unit 50 / 50 [id number] Intake (Blood Product) Amt 400 / 400 0 / 0 Rbc As-3 Leukoreduced Unit 0 / 0 0 / 0 [id number] Rbc As-3 Leukoreduced Unit 400 / 400 [id number] Other: Other Intake Source Rbc As-3 Leukoreduced Unit Saline Solution [id number] # Voids 1 6 - Constitutional no acute distress - Routine HEENT Exam Head: Present: normocephalic - Routine Respiratory Exam Present: CTA bilaterally - Routine Cardiovascular Exam Present: RRR - Routine Abdominal Exam Present: soft, normoactive bowel sounds, tenderness. Absent: rebound - Routine Extremities Exam Absent: clubbing - Routine Skin Exam Present: intact, warm - Routine Neurological Exam Present: alert, oriented X3 - Routine Psychiatric Exam Present: normal affect <Alex Hanks - Last Filed: 05/18/18 11:30> Vital signs: Vital Signs 05/18/18 00:00 05/18/18 01:52 05/18/18 02:09 Temperature 98.4 F 98.3 F 98.2 F Pulse Rate 61 66 64 Respiratory Rate 16 12 16 Blood Pressure 121/59 L 131/62 127/62 Pulse Oximetry 61 L 99 100 05/18/18 04:00 05/18/18 04:56 05/18/18 05:25 Temperature 98.6 F 98.3 F 98.1 F Pulse Rate 68 61 67 Respiratory Rate 16 12 12 Blood Pressure 125/66 139/63 122/58 L Pulse Oximetry 100 100 99 05/18/18 05:42 05/18/18 05:43 05/18/18 08:00 Temperature 98.4 F 98.1 F 97.9 F Pulse Rate 65 70 69 Respiratory Rate 12 12 18 Blood Pressure 113/57 L 144/63 H 134/63 Pulse Oximetry 100 99 100 05/18/18 12:00 05/18/18 16:00 Temperature 98.3 F 97.6 F Pulse Rate 71 72 Respiratory Rate 18 18 Blood Pressure 120/65 129/61 Pulse Oximetry 100 99 Intake & Output 05/18/18 05/18/18 05/19/18 06:59 18:59 06:59 Intake Total 1455 / 1455 1005 / 1005 Balance 1455 / 1455 1005 / 1005 Weight 67.3 kg Intake: IV 1005 / 1005 1005 / 1005 KCl Inj 10 MEQ In 1/2 Normal 1005 / 1005 1005 / 1005 Saline Inj 1,000 ML @ 84 mls/hr IV.CONT .[id number] [facility] Rx#: [id number] Other 50 / 50 Rbc As-3 Leukoreduced Unit 50 / 50 [id number] Intake (Blood Product) Amt 400 / 400 0 / 0 Rbc As-3 Leukoreduced Unit 0 / 0 0 / 0 [id number] Rbc As-3 Leukoreduced Unit 400 / 400 [id number] Other: Other Intake Source Rbc As-3 Leukoreduced Unit Saline Solution [id number] # Voids 6 <Chula Schwartz - Last Filed: 05/18/18 20:52> Results - Labs CBC & Chem 7: 05/17/18 06:56 05/17/18 06:56 Laboratory Results - last 24 hr 05/17/18 05/18/18 21:57 00:39 Blood Type B Positive Blood Type Confirm B Positive Blood Type Recheck Not needed Antibody Screen Negative MTS Gel Crossmatch See Detail Microbiology 05/16/18 10:20 Clean Catch Urine Urine Culture - Final >100,000 cfu/mL mixed ev (probable contaminants) <Alex Hanks - Last Filed: 05/18/18 11:30> - Labs CBC & Chem 7: 05/18/18 11:10 05/18/18 11:10 Laboratory Results - last 24 hr 05/17/18 05/18/18 05/18/18 21:57 00:39 11:10 WBC 16.7 H RBC 4.58 Hgb 12.5 D Hct 38.5 MCV 84.0 MCH 27.4 MCHC 32.6 RDW 16.1 Plt Count 445 MPV 7.9 Prelim Diff (Auto) Slide review pending Neut % (Auto) 83.3 H Lymph % (Auto) 7.4 L [place] % (Auto) 3.9 Eos % (Auto) 4.5 H Baso % (Auto) 0.9 Neut # (Auto) 13.9 H Lymph # (Auto) 1.2 [place] # (Auto) 0.7 Eos # (Auto) 0.8 H Baso # (Auto) 0.2 WBC Differential . Diff Scan Auto diff confirmed Differential Comment . Platelet Estimate High H Platelet Morphology Normal Sodium Potassium Chloride Carbon Dioxide Anion Gap BUN Creatinine Estimated GFR Random Glucose Calcium Total Bilirubin AST ALT Alkaline Phosphatase Total Protein Albumin Lipase Blood Type B Positive Blood Type Confirm B Positive Blood Type Recheck Not needed Antibody Screen Negative MTS Gel Crossmatch See Detail 05/18/18 11:10 WBC RBC Hgb Hct MCV MCH MCHC RDW Plt Count MPV Prelim Diff (Auto) Neut % (Auto) Lymph % (Auto) [place] % (Auto) Eos % (Auto) Baso % (Auto) Neut # (Auto) Lymph # (Auto) [place] # (Auto) Eos # (Auto) Baso # (Auto) WBC Differential Diff Scan Differential Comment Platelet Estimate Platelet Morphology Sodium 141 Potassium 4.0 Chloride 106 Carbon Dioxide 18.9 L Anion Gap 16 H BUN 46 H Creatinine 3.74 H Estimated GFR 14 L Random Glucose 92 Calcium 9.2 D Total Bilirubin 0.3 AST 21 ALT 7 L Alkaline Phosphatase 203 H Total Protein 6.9 D Albumin 1.6 L Lipase 118 Blood Type Blood Type Confirm Blood Type Recheck Antibody Screen MTS Gel Crossmatch <Chula Schwartz - Last Filed: 05/18/18 20:52> Assessment and Plan (1) Gastroparesis Status: Acute Code(s): K31.84 - Gastroparesis (2) Idiopathic pancreatitis Status: Chronic Code(s): K85.00 - Idiopathic acute pancreatitis without necrosis or infection - Plan Assessment: - Recurrent idiopathic pancreatitis- No signs of biliary obstruction from labs. Will order HIDA for evaluation Complaining of upper abdominal pain, located across entire upper abdomen, pain is constant, described as sharp. Worse with PO intake. Associated nausea, denies emesis. Recent hospitalization for same- initial ERCP unable to place stent due to kink in current stent, pt underwent PTC by IR, repeat ERCP done on 03/07 with successful metallic biliary stent placement and pt later had external biliary drain removed. Follow up in office in April with continued abdominal pain, noted to be seen in ER twice prior with same complaints, CT abdomen was negative. Pt was scheduled for repeat ERCP with stent exchange which she has not had done yet CT abdomen and pelvis WO IV contrast (05/16) Stable and grossly unremarkable follow-up CT scan compare to prior study. Stable tiny 2 mm nonobstructing stone right kidney. Stable 1.4 cm right renal cyst. 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 Schwartz and this note is written on her behalf <Alex Hanks - Last Filed: 05/18/18 11:30> (1) Gastroparesis Status: Acute Code(s): K31.84 - Gastroparesis (2) Idiopathic pancreatitis Status: Chronic Code(s): K85.00 - Idiopathic acute pancreatitis without necrosis or infection - Attending Attestation seen, examined agree with above HIDA scan in am if no signs of obstruction , patient can be discharged and schedule ercp op with <Chula Schwartz - Last Filed: 05/18/18 20:52> <Alex Hanks - Last Filed: 05/18/18 11:30> (2) Idiopathic pancreatitis Qualifiers: Chronicity: chronic Qualified Code(s): K86.1 - Other chronic pancreatitis <Chula Schwartz - Last Filed: 05/18/18 20:52> (2) Idiopathic pancreatitis Qualifiers: Chronicity: chronic Qualified Code(s): K86.1 - Other chronic pancreatitis
[2018-05-18 11:50] LABS: Baso # (Auto) 0.2 th/mm3 (0.0-0.2); Baso % (Auto) 0.9 % (0.0-2.0); Eos # (Auto) 0.8 th/mm3 (0.0-0.4); Eos % (Auto) 4.5 % (0.0-4.0); Hematocrit 38.5 % (35.0-46.0); Hemoglobin 12.5 gm/dL (11.6-15.3); Lymph # (Auto) 1.2 th/mm3 (1.0-4.8); Lymph % (Auto) 7.4 % (9.0-44.0); Mean Corpuscular HGB Conc 32.6 % (32.0-36.0); Mean Corpuscular Hemoglobin 27.4 pg (27.0-34.0); Mean Platelet Volume 7.9 fL (7.0-11.0); Mono # (Auto) 0.7 th/mm3 (0.0-0.9); Mono % (Auto) 3.9 % (0.0-8.0); Neut # (Auto) 13.9 th/mm3 (1.8-7.7); Neut % (Auto) 83.3 % (16.0-70.0); Platelet Count 445 th/mm3 (150-450); Red Blood Count 4.58 mil/mm3 (4.00-5.30); Red Cell Distribution Width 16.1 % (11.6-17.2); White Blood Count 16.7 th/mm3 (4.0-11.0)
[2018-05-18 12:20] LABS: Alanine Aminotransferase 7 U/L (10-53); Albumin 1.6 g/dL (3.4-5.0); Alkaline Phosphatase 203 U/L (45-117); Anion Gap 16 meq/L (5-15); Aspartate Aminotransferase 21 U/L (15-37); Blood Urea Nitrogen 46 mg/dL (7-18); Calcium 9.2 mg/dL (8.5-10.1); Carbon Dioxide 18.9 meq/L (21.0-32.0); Chloride 106 meq/L (98-107); Glomerular Filtration Rate 14 mL/min (>89); Glucose,Random 92 mg/dL (74-106); Lipase 118 U/L (73-393); Sodium 141 meq/L (136-145); Total Protein 6.9 g/dL (6.4-8.2)
[2018-05-18 12:29] LABS: Platelet Morphology Normal (Normal)
--- NOTE | 2018-05-18 13:04 | P.PNIM ---
Subjective Interval history: Pt c/o continued chronic abdominal pain and poor PO intake. Physical Exam Vital signs: Vital Signs 05/17/18 18:04 05/17/18 20:00 05/18/18 00:00 Temperature 98 F 98.4 F Pulse Rate 70 61 Respiratory Rate 0 L 16 16 Blood Pressure 131/67 121/59 L Pulse Oximetry 98 61 L 05/18/18 01:52 05/18/18 02:09 05/18/18 04:00 Temperature 98.3 F 98.2 F 98.6 F Pulse Rate 66 64 68 Respiratory Rate 12 16 16 Blood Pressure 131/62 127/62 125/66 Pulse Oximetry 99 100 100 05/18/18 04:56 05/18/18 05:25 05/18/18 05:42 Temperature 98.3 F 98.1 F 98.4 F Pulse Rate 61 67 65 Respiratory Rate 12 12 12 Blood Pressure 139/63 122/58 L 113/57 L Pulse Oximetry 100 99 100 05/18/18 05:43 05/18/18 08:00 Temperature 98.1 F 97.9 F Pulse Rate 70 69 Respiratory Rate 12 18 Blood Pressure 144/63 H 134/63 Pulse Oximetry 99 100 Intake & Output 05/17/18 05/18/18 05/18/18 18:59 06:59 18:59 Intake Total 1005 / 1005 450 / 450 0 / 0 Balance 1005 / 1005 450 / 450 0 / 0 Weight 67.3 kg Intake: IV 1005 / 1005 KCl Inj 10 MEQ In 1/2 Normal 1005 / 1005 Saline Inj 1,000 ML @ 84 mls/hr IV.CONT .[id number] [facility] Rx#: [id number] Other 50 / 50 Rbc As-3 Leukoreduced Unit 50 / 50 [id number] Intake (Blood Product) Amt 400 / 400 0 / 0 Rbc As-3 Leukoreduced Unit 0 / 0 0 / 0 [id number] Rbc As-3 Leukoreduced Unit 400 / 400 [id number] Other: Other Intake Source Rbc As-3 Leukoreduced Unit Saline Solution [id number] # Voids 1 6 Narrative: GENERAL: NAD, AAOx3 CARDIO: Regular RESP: Breath sounds equal bilaterally. No accessory muscle use. ABD: Abdomen soft, upper abdominal tenderness. GJ tube in place, no drainage or erythema EXT: No cyanosis, or edema. Results - Labs CBC & Chem 7: 05/22/18 09:30 05/22/18 06:05 Laboratory Results - last 24 hr 05/17/18 05/18/18 05/18/18 21:57 00:39 11:10 WBC 16.7 H RBC 4.58 Hgb 12.5 D Hct 38.5 MCV 84.0 MCH 27.4 MCHC 32.6 RDW 16.1 Plt Count 445 MPV 7.9 Prelim Diff (Auto) Slide review pending Neut % (Auto) 83.3 H Lymph % (Auto) 7.4 L [place] % (Auto) 3.9 Eos % (Auto) 4.5 H Baso % (Auto) 0.9 Neut # (Auto) 13.9 H Lymph # (Auto) 1.2 [place] # (Auto) 0.7 Eos # (Auto) 0.8 H Baso # (Auto) 0.2 WBC Differential . Diff Scan Auto diff confirmed Differential Comment . Platelet Estimate High H Platelet Morphology Normal Sodium Potassium Chloride Carbon Dioxide Anion Gap BUN Creatinine Estimated GFR Random Glucose Calcium Total Bilirubin AST ALT Alkaline Phosphatase Total Protein Albumin Lipase Blood Type B Positive Blood Type Confirm B Positive Blood Type Recheck Not needed Antibody Screen Negative MTS Gel Crossmatch See Detail 05/18/18 11:10 WBC RBC Hgb Hct MCV MCH MCHC RDW Plt Count MPV Prelim Diff (Auto) Neut % (Auto) Lymph % (Auto) [place] % (Auto) Eos % (Auto) Baso % (Auto) Neut # (Auto) Lymph # (Auto) [place] # (Auto) Eos # (Auto) Baso # (Auto) WBC Differential Diff Scan Differential Comment Platelet Estimate Platelet Morphology Sodium 141 Potassium 4.0 Chloride 106 Carbon Dioxide 18.9 L Anion Gap 16 H BUN 46 H Creatinine 3.74 H Estimated GFR 14 L Random Glucose 92 Calcium 9.2 D Total Bilirubin 0.3 AST 21 ALT 7 L Alkaline Phosphatase 203 H Total Protein 6.9 D Albumin 1.6 L Lipase 118 Blood Type Blood Type Confirm Blood Type Recheck Antibody Screen MTS Gel Crossmatch Microbiology 05/16/18 10:20 Clean Catch Urine Urine Culture - Final >100,000 cfu/mL mixed ev (probable contaminants) - Imaging ITS Impressions Chest X-Ray 05/16/18 07:37 CONCLUSION: 1. No acute abnormality or significant interval change. Abdomen/Pelvis CT 05/16/18 07:43 CONCLUSION: 1. Stable and grossly unremarkable follow-up CT scan of the abdomen and pelvis compared to the prior study. 2. Stable tiny 2 mm nonobstructing stone right kidney. 3. Stable 1.4 cm right renal cyst. Assessment and Plan - Assessment (1) Idiopathic pancreatitis Code(s): K85.00 - Idiopathic acute pancreatitis without necrosis or infection Status: Chronic Plan: - Ms. Larsen is an 82 y/o AAF with recurrent idiopathic pancreatitis. She has been hospitalized numerous times for issues with pain control related to recurrent pancreatitis. Her last admission was from 03/03/18 to 03/28/18 and she had biliary obstruction at that time. - During that admission she underwent evaluation with ERCP (03/03/18) which noted multiple stones, migrated metal stent up into CBD, could not put plastic stent due to "kink" in current stent according to GI notes. She required PTC placement on 03/04 by IR which noted severe obstruction of the proximal common bile duct stent with very challenging recanalization requiring multiple wires and catheters. biliary stent placement. She had to have a repeat ERCP (03/07/18) and had to have the metal stent cleared of debris and they were able to confirm complete clearance of the stent with good emptying through the stent. She had a percutaneous cholangiogram on 03/09/18 where the external portion of biliary drain was removed and the report showed some small hyperplasia within the distal aspect of the biliary stent but there is a patent channel down to the small bowel. - Pt presented back to the ED at [facility] [place] on 05/16/18 with continued abdominal pain that is similar to her previous pancreatitis pain. - Her labs in the ED revealed WBC count 18.2, Cr 4.56/BUN 60, Lipase 350. Her LFTs were mostly WNL with TBili 0.3, AST 17, ALT less than 6, AlkPhos 211. - CT Abd/pelvis w/o IV contrast in the ED which noted stable and grossly unremarkable follow-up CT scan of the abdomen and pelvis compared to the prior study on 04/24/18, stable tiny 2 mm nonobstructing stone right kidney, and stable 1.4 cm right renal cyst. - comgmt with GI - Case d/w GI, Dr. Schwartz (05/18/18) - obtain HIDA scan - Pt to have ERCP outpt in 2 weeks. Pt/family needs to call to arrange appointment. - Pt's last celiac plexus block performed by Dr. Rivera (05/13/17). Pt needs to f/ u with Dr. Rivera outpt to see if pt might benefit from repeat of the procedure - Change Jevity 1.5 to continuous feedings at 55ml/hour with free water flush 200ml q8 hours - Request consult from Dietary, RE: tube feeding optimization - Cont. IVF - Oral intake as tolerated - Pain control PRN with [place] and Morphine PRN - Monitor labs - Supportive care - DVT prophylaxis with SCDs - anticipate d/c to home with C in 2-3 days. (2) Acute on chronic kidney failure Code(s): N17.9 - Acute kidney failure, unspecified; N18.9 - Chronic kidney disease, unspecified Status: Acute Plan: - Pt with baseline stage 3 CKD, pt follows with Dr. Melara - Her labs at admission with a noted acute worsening of her baseline CKD. - Labs on 04/24 noted Cr is 3.51/BUN 38. Repeat labs on 04/30 with Cr 3.72/BUN 35 , GFR 14. - Labs at admission noted Cr 4.56/BUN 60 - Await consult from Nephrology - Repeat labs - Cr 4.08/BUN 51 (05/17) - Cr 3.74/BUN 46 (05/18) - Cont. IVF - Monitor labs daily - Avoid nephrotoxic agents (3) HTN (hypertension) Code(s): I10 - Essential (primary) hypertension Status: Acute Plan: - Cont. home meds - Monitor (4) GERD (gastroesophageal reflux disease) Code(s): K21.9 - Gastro-esophageal reflux disease without esophagitis Status: Acute Plan: - PPI (5) Anemia Code(s): D64.9 - Anemia, unspecified Status: Chronic Plan: - Pt with an acute decrease in her chronic anemia on 05/17 with Hgb down to 7.6 - No noted active bleeding - Transfuse 2 units PRBCs with Lasix 20mg IV in between the two units - Repeat labs in AM (1) Idiopathic pancreatitis Qualifiers: Qualified Code(s): K86.1 - Other chronic pancreatitis
--- NOTE | 2018-05-18 14:42 | MB ---
cc: Samson Kennedy MD DATE: 05/18/2018 REASON FOR CONSULTATION: Chronic kidney disease with acute kidney injury. HISTORY OF PRESENT ILLNESS: This is a very pleasant 82-year-old female with past medical history of hypertension, chronic kidney disease, and history of recurrent pancreatitis has been following with Dr. Melara, as per the patient, for her chronic kidney disease, and was admitted because of abdominal pain, nausea and vomiting. I was called to see the patient because of elevated BUN and creatinine. The patient has known history of chronic kidney disease. She has been following with Dr. Melara and in looking back, it seems like her creatinine has been in the range of 2.3-2.7 in the recent past, which is almost 2 months ago and now she is admitted with a creatinine of 4.5 and it has been gradually improving, now is 3.7. The patient had this nausea, vomiting before she was admitted and has decreased appetite. She is not eating. She has a history of recurrent chronic pancreatitis and she had mild abdominal pain on admission, which has been improved. The patient has history of GI workup including the ERCP, which was done on 03/03/2018, which shows that she has multiple stones and she has a stent in the CBD. She has a PTC placement on 03/12/2018. She has a history of cholecystectomy. Patient is getting IV fluid. She denies any dysuria or hematuria. Denies taking any nonsteroidal anti-inflammatory drugs. PAST MEDICAL HISTORY: Hypertension, chronic kidney disease, history of recurrent pancreatitis, gastroesophageal reflux disease, anxiety. PAST SURGICAL HISTORY: ERCP, left total knee replacement, cholecystectomy. REVIEW OF SYSTEMS: The patient has no history of fever. No headache or dizziness. She has this nausea and vomiting, which is slightly better now. Also, has chronic abdominal pain, mainly around the umbilicus and in the epigastric area. There is no history of diarrhea. No dysuria or hematuria. Not taking any nonsteroid anti-inflammatory drugs. SOCIAL HISTORY: There is no history of smoking or heavy alcoholism. FAMILY HISTORY: Noncontributory. ALLERGIES: SHE HAS NO KNOWN DRUG ALLERGIES. MEDICATIONS: Currently, she is on following medications: 1. Tylenol as needed. 2. [place] as needed. 3. Creon ____ 1 t.i.d. 4. Antivert 25 mg once a day. 5. Lopressor 25 mg b.i.d. 6. Morphine as needed. 7. Zofran as needed. 8. Protonix as needed. PHYSICAL EXAMINATION: GENERAL: The patient is awake, alert. She is not in acute distress. VITAL SIGNS: Her last blood pressure is 120/65. The blood pressure has been not very low during this admission. Temperature is 98.3, oxygen saturation 100%. HEENT: Pupils are mid constricted. Nonicteric sclerae. Conjunctivae pale. NECK: Supple. JVD is not elevated. LUNGS: We hear bilateral decreased air entry with scattered wheezing. HEART: S1, S2. Regular rate and rhythm. ABDOMEN: Distended, soft, lax. There is mild epigastric tenderness. There is no rebound or rigidity. Bowel sounds positive. EXTREMITIES: She has mild edema. INVESTIGATIONS: WBC count is 16.7, hemoglobin 12.5 t(his is after transfusion), her hemoglobin was 7.6 yesterday, platelet count of 445, neutrophils 83.3%. INR 1.3. Chemistry showing sodium 141, potassium 4.0, chloride 106, bicarbonate 18.9, BUN 46, creatinine 3.7, calcium 9.2, AST is 21, ALT is 7, alkaline phosphatase 203. Total protein 6.9, albumin is 1.6. Lipase is 118. Urinalysis was done, which shows that there is no proteinuria. Urine culture showing mixed ev. IMAGING STUDIES: The patient had CT scan of the abdomen and pelvis done 2 days ago without IV contrast and it shows that 2 mm nonobstructing right renal stone, 1.4 cm right renal cyst. The kidneys are otherwise mentioned normal in size and shape. No evidence of mass or hydronephrosis. ASSESSMENT AND PLAN: 1. Chronic kidney disease with acute kidney injury. 2. Recurrent acute pancreatitis. 3. Hypertension. 4. Anemia. 5. Gastroesophageal reflux disease. The patient has advanced chronic kidney disease. There is no proteinuria. 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 At present, the creatinine is improving. Encourage oral intake and avoid any nephrotoxins. Follow the urine output and the BUN and creatinine. Dr. Melara is on vacation, so I will be following the patient while she is in the hospital. Thank you for the consultation. Aaliyah Kennedy MD AQJ/KD , 02:08 PM , 02:41 PM
[2018-05-19] MEDS: Pantoprazole Inj 40 MG Vial IV.PUSH SCH ×2 (05:20→16:43)
[2018-05-19 08:38] LABS: Baso # (Auto) 0.2 th/mm3 (0.0-0.2); Baso % (Auto) 1.3 % (0.0-2.0); Eos # (Auto) 0.6 th/mm3 (0.0-0.4); Eos % (Auto) 4.3 % (0.0-4.0); Hemoglobin 11.4 gm/dL (11.6-15.3); Lymph # (Auto) 1.3 th/mm3 (1.0-4.8); Lymph % (Auto) 8.8 % (9.0-44.0); Mean Corpuscular HGB Conc 34.7 % (32.0-36.0); Mean Corpuscular Volume 83.6 fL (80.0-100.0); Mean Platelet Volume 8.2 fL (7.0-11.0); Mono # (Auto) 0.8 th/mm3 (0.0-0.9); Mono % (Auto) 5.2 % (0.0-8.0); Neut # (Auto) 11.8 th/mm3 (1.8-7.7); Neut % (Auto) 80.4 % (16.0-70.0); Platelet Count 387 th/mm3 (150-450); Red Blood Count 3.94 mil/mm3 (4.00-5.30); Red Cell Distribution Width 16.1 % (11.6-17.2); White Blood Count 14.6 th/mm3 (4.0-11.0)
[2018-05-19 08:39] LABS: Albumin 1.5 g/dL (3.4-5.0); Alkaline Phosphatase 184 U/L (45-117); Anion Gap 14 meq/L (5-15); Aspartate Aminotransferase 8 U/L (15-37); Blood Urea Nitrogen 43 mg/dL (7-18); Carbon Dioxide 18.9 meq/L (21.0-32.0); Chloride 109 meq/L (98-107); Glomerular Filtration Rate 15 mL/min (>89); Glucose,Random 86 mg/dL (74-106); Magnesium 1.8 mg/dL (1.5-2.5); Potassium 3.6 meq/L (3.5-5.1); Sodium 142 meq/L (136-145); Total Protein 5.9 g/dL (6.4-8.2)
[2018-05-19] MEDS ORDERED: Sincalide Inj 5 MCG Vial IV.PUSH ONE (10:36)
--- NOTE | 2018-05-19 11:30 | NM ---
EXAM DATE: 05/19/2018 11:21 AM EDT AGE/SEX: 82 years / Female INDICATIONS: Abdominal pain, nausea and vomiting. CLINICAL DATA: This is the patient's initial encounter. Patient reports that signs and symptoms have been present for 2 days and indicates a pain score of 4/10. MEDICAL/SURGICAL HISTORY: Renal failure, chronic. Hypertension. Cholecystectomy. Left total kn ee replacement and GJ tube placement. [place] [facility] [place] [facility] [place] 11/22/2015. . DOSE: 4.1 mCi Tc-99m mebrofenin i.v. Medication: 1.3 mcg Cholecystokinin IV Cholecystokinin was administered by slow infusion over 8 minutes beginning at 30 Minute. minutes. TECHNIQUE: Following the intravenous administration of radiotracer, dynamic sequential images were pe rformed with continuous acquisition. Time-activity curves were generated. FINDINGS: Hepatic Kinetics: There is prompt uptake of radiotracer in the liver. No focal defects are seen. Ther e is normal rate of washout from the hepatic parenchyma. Biliary Clearance: Activity is first seen in the extrahepatic biliary system at 25 minutes. There is normal excretion into the small bowel. Gallbladder: Status post cholecystectomy. Post-CCK: After CCK administration, there is prompt visualization of activity within the duodenum.. C ommon bile duct kinetics are normal and there is no evidence of biliary obstruction. Biliary-Enteric Reflux: None observed. CONCLUSION: 1. Negative examination. 2. Normal biliary kinetics; no evidence of obstruction. Electronically signed by: Baron Shin MD 05/19/2018 11:29 AM EDT
--- NOTE | 2018-05-19 12:49 | P.PNNP ---
Subjective Interval history: This is a very pleasant 82-year-old female with past medical history of hypertension, chronic kidney disease, and history of recurrent pancreatitis has been following with Dr. Melara, as per the patient, or her chronic kidney disease , and was admitted because of abdominal pain, nausea and vomiting.Nephrology was called to see the patient because of elevated BUN and creatinine. The patient has known history of chronic kidney disease. She has been following with Dr. Melara and in looking back, it seems like her creatinine has been in the range of 2.3-2.7 in the recent past, which is almost 2 months ago and now she is admitted with a creatinine of 4.5 and it has been gradually improving, now is 3.7. The patient had this nausea, vomiting before she was admitted and has decreased appetite. She is not eating. She has a history of recurrent chronic pancreatitis and she had mild abdominal pain on admission, which has been improved. The patient has history of GI workup including the ERCP, which was done on 03/03/2018, which shows that she has multiple stones and she has a stent in the CBD. She has a PTC placement on 03/12/2018. She has a history of cholecystectomy. Patient is getting IV fluid. She denies any dysuria or hematuria. Denies taking any nonsteroidal anti-inflammatory drugs. Reports shortness of breath, nausea, and poor appetite. <Shreya Tejeda - Last Filed: 05/19/18 12:31> Physical Exam Vital signs: Vital Signs 05/18/18 16:00 05/18/18 19:00 05/18/18 20:00 Temperature 97.6 F 97.9 F Pulse Rate 72 74 Respiratory Rate 18 19 18 Blood Pressure 129/61 138/62 Pulse Oximetry 99 100 05/19/18 00:00 05/19/18 04:00 05/19/18 08:34 Temperature 99.0 F 98.8 F 97.9 F Pulse Rate 77 72 79 Respiratory Rate 16 16 18 Blood Pressure 131/63 127/61 123/66 Pulse Oximetry 99 100 100 05/19/18 12:10 Temperature 98.1 F Pulse Rate 71 Respiratory Rate 18 Blood Pressure 134/66 Pulse Oximetry 100 Intake & Output 05/18/18 05/19/18 05/19/18 18:59 06:59 18:59 Intake Total 1005 / 1005 Balance 1005 / 1005 Weight 67.1 kg Intake: IV 1005 / 1005 KCl Inj 10 MEQ In 1/2 Normal 1005 / 1005 Saline Inj 1,000 ML @ 84 mls/hr IV.CONT .[id number] [facility] Rx#: [id number] Intake (Blood Product) Amt 0 / 0 Rbc As-3 Leukoreduced Unit 0 / 0 [id number] Other: # Voids 3 # Urine Diapers 1 - Constitutional no acute distress - Routine Neck Exam Present: supple. Absent: JVD - Routine Respiratory Exam Present: decreased breath sounds. Absent: rales, rhonchi, wheezes - Routine Cardiovascular Exam Present: RRR. Absent: murmur - Routine Abdominal Exam Present: normoactive bowel sounds, tenderness Comments: large - Routine Extremities Exam Absent: edema - Routine Skin Exam Present: intact, warm - Routine Neurological Exam Present: alert - Detailed Neurological Exam: Coma Scale Eye Opening: Spontaneous - Routine Psychiatric Exam Present: normal affect, cooperative <Shreya Tejeda - Last Filed: 05/19/18 12:31> Vital signs: Vital Signs 05/19/18 00:00 05/19/18 04:00 05/19/18 08:00 Temperature 99.0 F 98.8 F Pulse Rate 77 72 70 Respiratory Rate 16 16 16 Blood Pressure 131/63 127/61 Pulse Oximetry 99 100 05/19/18 08:34 05/19/18 12:00 05/19/18 12:10 Temperature 97.9 F 98.1 F Pulse Rate 79 61 71 Respiratory Rate 18 18 Blood Pressure 123/66 134/66 Pulse Oximetry 100 100 05/19/18 16:00 05/19/18 16:25 05/19/18 20:00 Temperature 98.0 F 98.1 F Pulse Rate 59 L 78 84 Respiratory Rate 18 17 Blood Pressure 112/55 L 136/66 Pulse Oximetry 96 97 Intake & Output 05/19/18 05/19/18 05/20/18 06:59 18:59 06:59 Weight 67.1 kg Other: # Voids 3 <Samson Kennedy - Last Filed: 05/19/18 22:35> Assessment and Plan - Assessment (1) Acute on chronic kidney failure Code(s): N17.9 - Acute kidney failure, unspecified; N18.9 - Chronic kidney disease, unspecified Status: Acute Qualifiers: Chronic kidney disease stage: stage 3 (moderate) Plan: The patient has known history of chronic kidney disease, followed by Dr. Melara with a baseline creatinine 2.3-2.7. There is no proteinuria. 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 Creatinine at 3.44 from 3.74 with normal potassium Mild acidosis with HCO3 18.9 Continue IVF with patient having nausea and poor intake Continue free water Encourage oral intake and avoid any nephrotoxins. Follow the urine output and the BUN and creatinine. (2) Anemia Code(s): D64.9 - Anemia, unspecified Status: Chronic Plan: Has received PRBC HGB stable now at 11.4 will monitor (3) HTN (hypertension) Code(s): I10 - Essential (primary) hypertension Status: Acute Plan: Well controlled continue metoprolol <Shreya Tejeda - Last Filed: 05/19/18 12:31> - Assessment (1) Acute on chronic kidney failure Code(s): N17.9 - Acute kidney failure, unspecified; N18.9 - Chronic kidney disease, unspecified Status: Acute Qualifiers: Chronic kidney disease stage: stage 3 (moderate) (2) Anemia Code(s): D64.9 - Anemia, unspecified Status: Chronic (3) HTN (hypertension) Code(s): I10 - Essential (primary) hypertension Status: Acute - Attending Attestation Patient seen and examined, agree with above. Creatinine is slightly better, now 3.4. <Samson Kennedy - Last Filed: 05/19/18 22:35>
--- NOTE | 2018-05-19 14:36 | P.PNGI ---
Subjective Interval history: Pt resting in bed, had first part of HIDA scan done this morning. Currently NPO. Complaining of some pains in her upper abdomen and RUQ. Denies nausea and vomiting. Does spit up into an emesis bag. <Zahira Mora - Last Filed: 05/19/18 14:34> Physical Exam Vital signs: Vital Signs 05/18/18 16:00 05/18/18 19:00 05/18/18 20:00 Temperature 97.6 F 97.9 F Pulse Rate 72 74 Respiratory Rate 18 19 18 Blood Pressure 129/61 138/62 Pulse Oximetry 99 100 05/19/18 00:00 05/19/18 04:00 05/19/18 08:34 Temperature 99.0 F 98.8 F 97.9 F Pulse Rate 77 72 79 Respiratory Rate 16 16 18 Blood Pressure 131/63 127/61 123/66 Pulse Oximetry 99 100 100 05/19/18 12:10 Temperature 98.1 F Pulse Rate 71 Respiratory Rate 18 Blood Pressure 134/66 Pulse Oximetry 100 Intake & Output 05/18/18 05/19/18 05/19/18 18:59 06:59 18:59 Intake Total 1005 / 1005 Balance 1005 / 1005 Weight 67.1 kg Intake: IV 1005 / 1005 KCl Inj 10 MEQ In 1/2 Normal 1005 / 1005 Saline Inj 1,000 ML @ 84 mls/hr IV.CONT .[id number] [facility] Rx#: [id number] Intake (Blood Product) Amt 0 / 0 Rbc As-3 Leukoreduced Unit 0 / 0 [id number] Other: # Voids 3 # Urine Diapers 1 - Constitutional no acute distress - Routine HEENT Exam Head: Present: normocephalic, atraumatic - Routine Respiratory Exam Absent: accessory muscle use - Routine Abdominal Exam Present: soft, normoactive bowel sounds, tenderness (upper abdominal and RUQ tenderness ). Absent: distended, rebound, guarding - Routine Skin Exam Present: dry, warm - Routine Neurological Exam Present: alert, oriented X3 <Zahira Mora - Last Filed: 05/19/18 14:34> Vital signs: Vital Signs 05/18/18 19:00 05/18/18 20:00 05/19/18 00:00 Temperature 97.9 F 99.0 F Pulse Rate 74 77 Respiratory Rate 19 18 16 Blood Pressure 138/62 131/63 Pulse Oximetry 100 99 05/19/18 04:00 05/19/18 08:34 05/19/18 12:10 Temperature 98.8 F 97.9 F 98.1 F Pulse Rate 72 79 71 Respiratory Rate 16 18 18 Blood Pressure 127/61 123/66 134/66 Pulse Oximetry 100 100 100 05/19/18 16:25 Temperature 98.0 F Pulse Rate 78 Respiratory Rate 18 Blood Pressure 112/55 L Pulse Oximetry 96 Intake & Output 05/18/18 05/19/18 05/19/18 18:59 06:59 18:59 Intake Total 1005 / 1005 Balance 1005 / 1005 Weight 67.1 kg Intake: IV 1005 / 1005 KCl Inj 10 MEQ In 1/2 Normal 1005 / 1005 Saline Inj 1,000 ML @ 84 mls/hr IV.CONT .[id number] [facility] Rx#: [id number] Intake (Blood Product) Amt 0 / 0 Rbc As-3 Leukoreduced Unit 0 / 0 [id number] Other: # Voids 3 # Urine Diapers 1 <Chula Schwartz - Last Filed: 05/19/18 17:20> Results - Labs CBC & Chem 7: 05/19/18 07:39 05/19/18 07:39 Laboratory Results - last 24 hr 05/19/18 05/19/18 07:39 07:39 WBC 14.6 H RBC 3.94 L Hgb 11.4 L Hct 33.0 L MCV 83.6 MCH 29.0 MCHC 34.7 RDW 16.1 Plt Count 387 MPV 8.2 Prelim Diff (Auto) Slide review pending Neut % (Auto) 80.4 H Lymph % (Auto) 8.8 L [place] % (Auto) 5.2 Eos % (Auto) 4.3 H Baso % (Auto) 1.3 Neut # (Auto) 11.8 H Lymph # (Auto) 1.3 [place] # (Auto) 0.8 Eos # (Auto) 0.6 H Baso # (Auto) 0.2 WBC Differential . Differential Comment Auto diff final Sodium 142 Potassium 3.6 Chloride 109 H Carbon Dioxide 18.9 L Anion Gap 14 BUN 43 H Creatinine 3.44 H Estimated GFR 15 L Random Glucose 86 Calcium 8.0 L D Magnesium 1.8 Total Bilirubin 0.3 AST 8 L ALT Less than 6 L Alkaline Phosphatase 184 H Total Protein 5.9 L D Albumin 1.5 L - Imaging Impressions Bile Acid Absorption NM 05/19/18 00:00 CONCLUSION: 1. Negative examination. 2. Normal biliary kinetics; no evidence of obstruction. <Zahira Mora - Last Filed: 05/19/18 14:34> - Labs CBC & Chem 7: 05/19/18 07:39 05/19/18 07:39 Laboratory Results - last 24 hr 05/19/18 05/19/18 07:39 07:39 WBC 14.6 H RBC 3.94 L Hgb 11.4 L Hct 33.0 L MCV 83.6 MCH 29.0 MCHC 34.7 RDW 16.1 Plt Count 387 MPV 8.2 Prelim Diff (Auto) Slide review pending Neut % (Auto) 80.4 H Lymph % (Auto) 8.8 L [place] % (Auto) 5.2 Eos % (Auto) 4.3 H Baso % (Auto) 1.3 Neut # (Auto) 11.8 H Lymph # (Auto) 1.3 [place] # (Auto) 0.8 Eos # (Auto) 0.6 H Baso # (Auto) 0.2 WBC Differential . Differential Comment Auto diff final Sodium 142 Potassium 3.6 Chloride 109 H Carbon Dioxide 18.9 L Anion Gap 14 BUN 43 H Creatinine 3.44 H Estimated GFR 15 L Random Glucose 86 Calcium 8.0 L D Magnesium 1.8 Total Bilirubin 0.3 AST 8 L ALT Less than 6 L Alkaline Phosphatase 184 H Total Protein 5.9 L D Albumin 1.5 L - Imaging Impressions Bile Acid Absorption NM 05/19/18 00:00 CONCLUSION: 1. Negative examination. 2. Normal biliary kinetics; no evidence of obstruction. <Chula Schwartz - Last Filed: 05/19/18 17:20> Assessment and Plan (1) Gastroparesis Status: Acute Code(s): K31.84 - Gastroparesis (2) Idiopathic pancreatitis Status: Chronic Code(s): K85.00 - Idiopathic acute pancreatitis without necrosis or infection - Plan Assessment: - Recurrent idiopathic pancreatitis- No signs of biliary obstruction from labs. Will order HIDA for evaluation Complaining of upper abdominal pain, located across entire upper abdomen, pain is constant, described as sharp. Worse with PO intake. Associated nausea, denies emesis. Recent hospitalization for same- initial ERCP unable to place stent due to kink in current stent, pt underwent PTC by IR, repeat ERCP done on 03/07 with successful metallic biliary stent placement and pt later had external biliary drain removed. Follow up in office in April with continued abdominal pain, noted to be seen in ER twice prior with same complaints, CT abdomen was negative. Pt was scheduled for repeat ERCP with stent exchange which she has not had done yet CT abdomen and pelvis WO IV contrast (05/16) Stable and grossly unremarkable follow-up CT scan compare to prior study. Stable tiny 2 mm nonobstructing stone right kidney. Stable 1.4 cm right renal cyst. 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 Pt currently NPO. Plan: If HIDA scan is negative for obstruction, OK to DC and follow up outpatient ERCP with stent exchanging-as an OP Celiac Plexus as an OP Continue with tube feeding as tolerated Creon Bowel regimen Further recommendations based on clinical course Pt has been seen and examined by myself and Dr. Schwartz and this note is written on her behalf <Zahira Mora - Last Filed: 05/19/18 14:34> (1) Gastroparesis Status: Acute Code(s): K31.84 - Gastroparesis (2) Idiopathic pancreatitis Status: Chronic Code(s): K85.00 - Idiopathic acute pancreatitis without necrosis or infection - Attending Attestation seen, examined agree with above we will try to schedule ercp/op with dr Ortega <Chula Schwartz - Last Filed: 05/19/18 17:20> <Zahria Mora - Last Filed: 05/19/18 14:34> (2) Idiopathic pancreatitis Qualifiers: Chronicity: chronic Qualified Code(s): K86.1 - Other chronic pancreatitis <Chula Schwartz - Last Filed: 05/19/18 17:20> (2) Idiopathic pancreatitis Qualifiers: Chronicity: chronic Qualified Code(s): K86.1 - Other chronic pancreatitis
[2018-05-19] MEDS ORDERED: Sodium Chloride 0.45 % Inj 1,000 ML IV.CONT SCH (15:15)
--- NOTE | 2018-05-19 15:18 | P.PNIM ---
Subjective Interval history: Patient c/o nausea, has spit up in emesis basin. Physical Exam Vital signs: Vital Signs 05/18/18 16:00 05/18/18 19:00 05/18/18 20:00 Temperature 97.6 F 97.9 F Pulse Rate 72 74 Respiratory Rate 18 19 18 Blood Pressure 129/61 138/62 Pulse Oximetry 99 100 05/19/18 00:00 05/19/18 04:00 05/19/18 08:34 Temperature 99.0 F 98.8 F 97.9 F Pulse Rate 77 72 79 Respiratory Rate 16 16 18 Blood Pressure 131/63 127/61 123/66 Pulse Oximetry 99 100 100 05/19/18 12:10 Temperature 98.1 F Pulse Rate 71 Respiratory Rate 18 Blood Pressure 134/66 Pulse Oximetry 100 Intake & Output 05/18/18 05/19/18 05/19/18 18:59 06:59 18:59 Intake Total 1005 / 1005 Balance 1005 / 1005 Weight 67.1 kg Intake: IV 1005 / 1005 KCl Inj 10 MEQ In 1/2 Normal 1005 / 1005 Saline Inj 1,000 ML @ 84 mls/hr IV.CONT .[id number] [facility] Rx#: [id number] Intake (Blood Product) Amt 0 / 0 Rbc As-3 Leukoreduced Unit 0 / 0 [id number] Other: # Voids 3 # Urine Diapers 1 Narrative: GENERAL: NAD, AAOx3 CARDIO: Regular RESP: Breath sounds equal bilaterally. No accessory muscle use. ABD: Abdomen soft, upper abdominal tenderness. GJ tube in place, no drainage or erythema EXT: No cyanosis, or edema. Results - Labs CBC & Chem 7: 05/22/18 09:30 05/22/18 06:05 Laboratory Results - last 24 hr 05/19/18 05/19/18 07:39 07:39 WBC 14.6 H RBC 3.94 L Hgb 11.4 L Hct 33.0 L MCV 83.6 MCH 29.0 MCHC 34.7 RDW 16.1 Plt Count 387 MPV 8.2 Prelim Diff (Auto) Slide review pending Neut % (Auto) 80.4 H Lymph % (Auto) 8.8 L [place] % (Auto) 5.2 Eos % (Auto) 4.3 H Baso % (Auto) 1.3 Neut # (Auto) 11.8 H Lymph # (Auto) 1.3 [place] # (Auto) 0.8 Eos # (Auto) 0.6 H Baso # (Auto) 0.2 WBC Differential . Differential Comment Auto diff final Sodium 142 Potassium 3.6 Chloride 109 H Carbon Dioxide 18.9 L Anion Gap 14 BUN 43 H Creatinine 3.44 H Estimated GFR 15 L Random Glucose 86 Calcium 8.0 L D Magnesium 1.8 Total Bilirubin 0.3 AST 8 L ALT Less than 6 L Alkaline Phosphatase 184 H Total Protein 5.9 L D Albumin 1.5 L - Imaging Impressions Bile Acid Absorption NM 05/19/18 00:00 CONCLUSION: 1. Negative examination. 2. Normal biliary kinetics; no evidence of obstruction. Assessment and Plan - Assessment (1) Idiopathic pancreatitis Code(s): K85.00 - Idiopathic acute pancreatitis without necrosis or infection Status: Chronic Plan: (1) Idiopathic pancreatitis Code(s): K85.00 - Idiopathic acute pancreatitis without necrosis or infection Status: Chronic Plan: - Ms. Larsen is an 82 y/o AAF with recurrent idiopathic pancreatitis. She has been hospitalized numerous times for issues with pain control related to recurrent pancreatitis. Her last admission was from 03/03/18 to 03/28/18 and she had biliary obstruction at that time. - During that admission she underwent evaluation with ERCP (03/03/18) which noted multiple stones, migrated metal stent up into CBD, could not put plastic stent due to "kink" in current stent according to GI notes. She required PTC placement on 03/04 by IR which noted severe obstruction of the proximal common bile duct stent with very challenging recanalization requiring multiple wires and catheters. biliary stent placement. She had to have a repeat ERCP (03/07/18) and had to have the metal stent cleared of debris and they were able to confirm complete clearance of the stent with good emptying through the stent. She had a percutaneous cholangiogram on 03/09/18 where the external portion of biliary drain was removed and the report showed some small hyperplasia within the distal aspect of the biliary stent but there is a patent channel down to the small bowel. - Pt presented back to the ED at [facility] on 05/16/18 with continued abdominal pain that is similar to her previous pancreatitis pain. - Her labs in the ED revealed WBC count 18.2, Cr 4.56/BUN 60, Lipase 350. Her LFTs were mostly WNL with TBili 0.3, AST 17, ALT less than 6, AlkPhos 211. - CT Abd/pelvis w/o IV contrast in the ED which noted stable and grossly unremarkable follow-up CT scan of the abdomen and pelvis compared to the prior study on 04/24/18, stable tiny 2 mm nonobstructing stone right kidney, and stable 1.4 cm right renal cyst. - comgmt with GI - Case d/w GI, Dr. Schwartz (05/18/18) - HIDA scan 05/19 reviewed and reveals: Negative examination. Normal biliary kinetics; no evidence of obstruction. - (05/19) patient cleared for DC per GI - Pt to have ERCP outpt in 2 weeks. Pt/family needs to call to arrange appointment. - Pt's last celiac plexus block performed by Dr. Rivera (05/13/17). Pt needs to f/ u with Dr. Rivera outpt to see if pt might benefit from repeat of the procedure - Change Jevity 1.5 to continuous feedings at 55ml/hour with free water flush 200ml q8 hours - Request consult from Dietary, RE: tube feeding optimization - Cont. IVF - Oral intake as tolerated - Pain control PRN with [place] and Morphine PRN - zofran as need for N/V - Monitor labs - Supportive care - DVT prophylaxis with SCDs - anticipate d/c to home with [facility] in 1-2 days. (2) Acute on chronic kidney failure Code(s): N17.9 - Acute kidney failure, unspecified; N18.9 - Chronic kidney disease, unspecified Status: Acute Plan: - Pt with baseline stage 3 CKD, pt follows with Dr. Melara - Her labs at admission with a noted acute worsening of her baseline CKD. - Labs on 04/24 noted Cr is 3.51/BUN 38. Repeat labs on 04/30 with Cr 3.72/BUN 35 , GFR 14. - Labs at admission noted Cr 4.56/BUN 60 - Await consult from Nephrology - Repeat labs - Cr 4.08/BUN 51 (7/3) - Cr 3.74/BUN 46 (/4) - Cr 3.44/BUN 43 (/5) - Cont. IVF 1/2 NS x 1 liter - recheck BMP in AM - Avoid nephrotoxic agents (3) HTN (hypertension) Code(s): I10 - Essential (primary) hypertension Status: Acute Plan: - Cont. home meds - Monitor (4) GERD (gastroesophageal reflux disease) Code(s): K21.9 - Gastro-esophageal reflux disease without esophagitis Status: Acute Plan: - PPI (5) Anemia Code(s): D64.9 - Anemia, unspecified Status: Chronic Plan: - Pt with an acute decrease in her chronic anemia on 05/17 with Hgb down to 7.6 - > 11.3 (05/18) - No noted active bleeding - s/p Transfuse 2 units PRBCs with Lasix 20mg IV in between the two units - recheck CBC in AM (2) Acute on chronic kidney failure Code(s): N17.9 - Acute kidney failure, unspecified; N18.9 - Chronic kidney disease, unspecified Status: Acute (3) HTN (hypertension) Code(s): I10 - Essential (primary) hypertension Status: Acute (4) GERD (gastroesophageal reflux disease) Code(s): K21.9 - Gastro-esophageal reflux disease without esophagitis Status: Acute (5) Anemia Code(s): D64.9 - Anemia, unspecified Status: Chronic - Attending Attestation Patient examined. Assessment and plan formulated with Olga PETERSON I agree with the above. (1) Idiopathic pancreatitis Qualifiers: Qualified Code(s): K86.1 - Other chronic pancreatitis
[2018-05-19] MEDS: Lipase/Protease/Amylase 12/38/60 DR Capsule PO SCH ×3 (16:16→18:46)
[2018-05-19] MEDS: Senna/Docusate Sodium 8.6/50 MG Tablet PO SCH (16:16)
[2018-05-19] MEDS: Metoprolol Tartrate 25 MG Tablet PO SCH ×2 (16:34→21:50)
[2018-05-19] MEDS: Morphine Inj 4 MG/ML Vial IV.PUSH PRN (16:43)
[2018-05-20] MEDS: Morphine Inj 4 MG/ML Vial IV.PUSH PRN ×2 (00:30→10:40)
[2018-05-20] MEDS: Senna/Docusate Sodium 8.6/50 MG Tablet PO SCH ×3 (01:24→22:12)
[2018-05-20] MEDS: Pantoprazole Inj 40 MG Vial IV.PUSH SCH (05:57)
[2018-05-20] MEDS: Lipase/Protease/Amylase 12/38/60 DR Capsule PO SCH ×3 (10:30→18:08)
[2018-05-20] MEDS: Metoprolol Tartrate 25 MG Tablet PO SCH ×2 (10:31→22:10)
--- NOTE | 2018-05-20 11:32 | P.PNNP ---
Subjective Interval history: Abdominal discomfort has improved. Mild shortness of breath. <Shreya Tejeda - Last Filed: 05/20/18 11:26> Physical Exam Vital signs: Vital Signs 05/19/18 12:00 05/19/18 12:10 05/19/18 16:00 Temperature 98.1 F Pulse Rate 61 71 59 L Respiratory Rate 18 Blood Pressure 134/66 Pulse Oximetry 100 05/19/18 16:25 05/19/18 19:50 05/19/18 20:00 Temperature 98.0 F 98.1 F Pulse Rate 78 84 Respiratory Rate 18 18 17 Blood Pressure 112/55 L 136/66 Pulse Oximetry 96 97 05/20/18 00:00 05/20/18 06:03 05/20/18 08:32 Temperature 98.4 F 97.9 F 98.2 F Pulse Rate 82 83 78 Respiratory Rate 17 18 18 Blood Pressure 133/60 134/62 114/64 Pulse Oximetry 98 97 97 Intake & Output 05/19/18 05/20/18 05/20/18 18:59 06:59 18:59 Intake Total 360 / 360 Balance 360 / 360 Weight 67.2 kg Intake: Oral 360 / 360 Other: # Voids 2 - Constitutional no acute distress - Routine HEENT Exam Head: Present: normocephalic ENT: Present: mucous membranes moist - Routine Neck Exam Present: supple. Absent: JVD - Routine Respiratory Exam Present: decreased breath sounds. Absent: rhonchi, wheezes - Routine Cardiovascular Exam Present: RRR. Absent: murmur - Routine Abdominal Exam Present: soft, tenderness - Routine Extremities Exam Absent: edema - Routine Skin Exam Present: warm - Routine Neurological Exam Present: alert - Detailed Neurological Exam: Coma Scale Eye Opening: Spontaneous - Routine Psychiatric Exam Present: cooperative <Shreya Tejeda - Last Filed: 05/20/18 11:26> Vital signs: Vital Signs 05/20/18 00:00 05/20/18 06:03 05/20/18 08:00 Temperature 98.4 F 97.9 F Pulse Rate 82 83 67 Respiratory Rate 17 18 Blood Pressure 133/60 134/62 Pulse Oximetry 98 97 05/20/18 08:32 05/20/18 12:00 05/20/18 12:14 Temperature 98.2 F 98.1 F Pulse Rate 78 85 80 Respiratory Rate 18 18 Blood Pressure 114/64 125/65 Pulse Oximetry 97 99 05/20/18 16:00 05/20/18 16:34 Temperature 98.1 F Pulse Rate 80 85 Respiratory Rate 18 Blood Pressure 126/60 Pulse Oximetry 97 Intake & Output 05/20/18 05/20/18 05/21/18 06:59 18:59 06:59 Intake Total 360 / 360 Balance 360 / 360 Weight 67.2 kg Intake: Oral 360 / 360 Other: # Voids 2 <Samson Kennedy - Last Filed: 05/20/18 22:44> Assessment and Plan - Assessment (1) Acute on chronic kidney failure Code(s): N17.9 - Acute kidney failure, unspecified; N18.9 - Chronic kidney disease, unspecified Status: Acute Qualifiers: Chronic kidney disease stage: stage 3 (moderate) Plan: The patient has known history of chronic kidney disease, followed by Dr. Melara with a baseline creatinine 2.3-2.7. There is no proteinuria. 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 Creatinine at 3.44 from 3.74 with normal potassium yesterday no new labs today IVF have been stopped. PO fluids encouraged Free water increased. Avoid any nephrotoxins. Follow the urine output and the BUN and creatinine. No new labs today Labs in AM (2) Anemia Code(s): D64.9 - Anemia, unspecified Status: Chronic Plan: Has received PRBC HGB stable will monitor (3) HTN (hypertension) Code(s): I10 - Essential (primary) hypertension Status: Acute Plan: Well controlled continue metoprolol <Shreya Tejeda - Last Filed: 05/20/18 11:26> - Assessment (1) Acute on chronic kidney failure Code(s): N17.9 - Acute kidney failure, unspecified; N18.9 - Chronic kidney disease, unspecified Status: Acute Qualifiers: Chronic kidney disease stage: stage 3 (moderate) (2) Anemia Code(s): D64.9 - Anemia, unspecified Status: Chronic (3) HTN (hypertension) Code(s): I10 - Essential (primary) hypertension Status: Acute - Attending Attestation Patient seen and examined, agree with above. Creatinine is slightly better, now 3.1. <Samson Kennedy - Last Filed: 05/20/18 22:44>
[2018-05-20 13:26] LABS: Baso # (Auto) 0.1 th/mm3 (0.0-0.2); Baso % (Auto) 0.4 % (0.0-2.0); Eos # (Auto) 0.5 th/mm3 (0.0-0.4); Eos % (Auto) 3.4 % (0.0-4.0); Hematocrit 34.8 % (35.0-46.0); Hemoglobin 11.3 gm/dL (11.6-15.3); Lymph # (Auto) 1.5 th/mm3 (1.0-4.8); Lymph % (Auto) 9.7 % (9.0-44.0); Mean Corpuscular HGB Conc 32.5 % (32.0-36.0); Mean Corpuscular Hemoglobin 27.6 pg (27.0-34.0); Mean Corpuscular Volume 84.9 fL (80.0-100.0); Mean Platelet Volume 7.9 fL (7.0-11.0); Mono # (Auto) 0.9 th/mm3 (0.0-0.9); Mono % (Auto) 5.8 % (0.0-8.0); Neut # (Auto) 12.5 th/mm3 (1.8-7.7); Neut % (Auto) 80.7 % (16.0-70.0); Platelet Count 421 th/mm3 (150-450); Red Cell Distribution Width 16.5 % (11.6-17.2); White Blood Count 15.5 th/mm3 (4.0-11.0)
[2018-05-20 13:51] LABS: Calcium 8.3 mg/dL (8.5-10.1); Carbon Dioxide 20.7 meq/L (21.0-32.0); Potassium 3.6 meq/L (3.5-5.1)
--- NOTE | 2018-05-20 15:48 | P.PNIM ---
Subjective Interval history: Patient appears comfortable in no acute distress, Physical Exam Vital signs: Vital Signs 05/19/18 16:00 05/19/18 16:25 05/19/18 19:50 Temperature 98.0 F Pulse Rate 59 L 78 Respiratory Rate 18 18 Blood Pressure 112/55 L Pulse Oximetry 96 05/19/18 20:00 05/20/18 00:00 05/20/18 06:03 Temperature 98.1 F 98.4 F 97.9 F Pulse Rate 84 82 83 Respiratory Rate 17 17 18 Blood Pressure 136/66 133/60 134/62 Pulse Oximetry 97 98 97 05/20/18 08:32 05/20/18 12:14 Temperature 98.2 F 98.1 F Pulse Rate 78 80 Respiratory Rate 18 18 Blood Pressure 114/64 125/65 Pulse Oximetry 97 99 Intake & Output 05/19/18 05/20/18 05/20/18 18:59 06:59 18:59 Intake Total 360 / 360 Balance 360 / 360 Weight 67.2 kg Intake: Oral 360 / 360 Other: # Voids 2 Narrative: GENERAL: NAD, AAOx3 CARDIO: Regular RESP: Breath sounds equal bilaterally. No accessory muscle use. ABD: Abdomen soft, GJ tube in place, no drainage or erythema EXT: No cyanosis, or edema. Results - Labs CBC & Chem 7: 05/22/18 09:30 05/22/18 06:05 Laboratory Results - last 24 hr 05/20/18 05/20/18 12:42 12:42 WBC 15.5 H RBC 4.10 Hgb 11.3 L Hct 34.8 L MCV 84.9 MCH 27.6 MCHC 32.5 RDW 16.5 Plt Count 421 MPV 7.9 Neut % (Auto) 80.7 H Lymph % (Auto) 9.7 [place] % (Auto) 5.8 Eos % (Auto) 3.4 Baso % (Auto) 0.4 Neut # (Auto) 12.5 H Lymph # (Auto) 1.5 [place] # (Auto) 0.9 Eos # (Auto) 0.5 H Baso # (Auto) 0.1 WBC Differential . Differential Comment Auto diff final Sodium 140 Potassium 3.6 Chloride 106 Carbon Dioxide 20.7 L Anion Gap 13 BUN 40 H Creatinine 3.17 H Estimated GFR 17 L Random Glucose 102 Calcium 8.3 L Assessment and Plan - Assessment (1) Idiopathic pancreatitis Code(s): K85.00 - Idiopathic acute pancreatitis without necrosis or infection Status: Chronic Plan: (1) Idiopathic pancreatitis Code(s): K85.00 - Idiopathic acute pancreatitis without necrosis or infection Status: Chronic Plan: - Ms. Larsen is an 82 y/o AAF with recurrent idiopathic pancreatitis. She has been hospitalized numerous times for issues with pain control related to recurrent pancreatitis. Her last admission was from 03/03/18 to 03/28/18 and she had biliary obstruction at that time. - During that admission she underwent evaluation with ERCP (03/03/18) which noted multiple stones, migrated metal stent up into CBD, could not put plastic stent due to "kink" in current stent according to GI notes. She required PTC placement on 03/04 by IR which noted severe obstruction of the proximal common bile duct stent with very challenging recanalization requiring multiple wires and catheters. biliary stent placement. She had to have a repeat ERCP (03/07/18) and had to have the metal stent cleared of debris and they were able to confirm complete clearance of the stent with good emptying through the stent. She had a percutaneous cholangiogram on 03/09/18 where the external portion of biliary drain was removed and the report showed some small hyperplasia within the distal aspect of the biliary stent but there is a patent channel down to the small bowel. - Pt presented back to the ED at [facility] [place] on 05/16/18 with continued abdominal pain that is similar to her previous pancreatitis pain. - Her labs in the ED revealed WBC count 18.2, Cr 4.56/BUN 60, Lipase 350. Her LFTs were mostly WNL with TBili 0.3, AST 17, ALT less than 6, AlkPhos 211. - CT Abd/pelvis w/o IV contrast in the ED which noted stable and grossly unremarkable follow-up CT scan of the abdomen and pelvis compared to the prior study on 04/24/18, stable tiny 2 mm nonobstructing stone right kidney, and stable 1.4 cm right renal cyst. - comgmt with GI - Case d/w GI, Dr. Schwartz (05/18/18) - HIDA scan 05/19 reviewed and reveals: Negative examination. Normal biliary kinetics; no evidence of obstruction. - (05/19) patient cleared for DC per GI - Pt to have ERCP outpt in 2 weeks. Pt/family needs to call to arrange appointment. - Pt's last celiac plexus block performed by Dr. Rivera (05/13/17). Pt needs to f/ u with Dr. Rivera outpt to see if pt might benefit from repeat of the procedure - Change Jevity 1.5 to continuous feedings at 55ml/hour with free water flush 200ml q8 hours - Request consult from Dietary, RE: tube feeding optimization - Cont. IVF - Oral intake as tolerated - Pain control PRN with Amery and Morphine PRN - zofran as need for N/V - Monitor labs - Supportive care - DVT prophylaxis with SCDs - anticipate d/c to home with [facility] in 1-2 days. (2) Acute on chronic kidney failure Code(s): N17.9 - Acute kidney failure, unspecified; N18.9 - Chronic kidney disease, unspecified Status: Acute Plan: - Pt with baseline stage 3 CKD, pt follows with Dr. Melara - Her labs at admission with a noted acute worsening of her baseline CKD. - Labs on 04/24 noted Cr is 3.51/BUN 38. Repeat labs on 04/30 with Cr 3.72/BUN 35 , GFR 14. - Labs at admission noted Cr 4.56/BUN 60 - Await consult from Nephrology - Repeat labs - Cr 4.08/BUN 51 (05/17) - Cr 3.74/BUN 46 (05/18) - Cr 3.44/BUN 43 (05/19) - cr 3.17/BUN 40 (05/20) - Cont. IVF 1/2 NS x 1 liter (05/19) - Avoid nephrotoxic agents (3) HTN (hypertension) Code(s): I10 - Essential (primary) hypertension Status: Acute Plan: - Cont. home meds - Monitor (4) GERD (gastroesophageal reflux disease) Code(s): K21.9 - Gastro-esophageal reflux disease without esophagitis Status: Acute Plan: - PPI (5) Anemia Code(s): D64.9 - Anemia, unspecified Status: Chronic Plan: - Pt with an acute decrease in her chronic anemia on 05/17 with Hgb down to 7.6 - > 11.3 (05/18) - No noted active bleeding - s/p Transfuse 2 units PRBCs with Lasix 20mg IV in between the two units Plan to DC home with [facility] tomorrow (2) Acute on chronic kidney failure Code(s): N17.9 - Acute kidney failure, unspecified; N18.9 - Chronic kidney disease, unspecified Status: Acute (3) HTN (hypertension) Code(s): I10 - Essential (primary) hypertension Status: Acute (4) GERD (gastroesophageal reflux disease) Code(s): K21.9 - Gastro-esophageal reflux disease without esophagitis Status: Acute (5) Anemia Code(s): D64.9 - Anemia, unspecified Status: Chronic - Plan Patient examined. Assessment and plan formulated with Olga PETERSON I agree with the above. (1) Idiopathic pancreatitis Qualifiers: Chronicity: chronic Qualified Code(s): K86.1 - Other chronic pancreatitis (2) Acute on chronic kidney failure Qualifiers: Chronic kidney disease stage: stage 3 (moderate)
[2018-05-20] MEDS: Acetaminophen 325 MG Tablet PO PRN (16:23)
--- NOTE | 2018-05-20 16:58 | P.PNGI ---
Subjective Interval history: Patient is resting in the bed continues to have headache and upper abdominal pain Decreased appetite States bowel movement last p.m. normal brown Also has some nausea but no vomiting Physical Exam Vital signs: Vital Signs 05/19/18 19:50 05/19/18 20:00 05/20/18 00:00 Temperature 98.1 F 98.4 F Pulse Rate 84 82 Respiratory Rate 18 17 17 Blood Pressure 136/66 133/60 Pulse Oximetry 97 98 05/20/18 06:03 05/20/18 08:32 05/20/18 12:14 Temperature 97.9 F 98.2 F 98.1 F Pulse Rate 83 78 80 Respiratory Rate 18 18 18 Blood Pressure 134/62 114/64 125/65 Pulse Oximetry 97 97 99 05/20/18 16:34 Temperature 98.1 F Pulse Rate 85 Respiratory Rate 18 Blood Pressure 126/60 Pulse Oximetry 97 Intake & Output 05/19/18 05/20/18 05/20/18 18:59 06:59 18:59 Intake Total 360 / 360 Balance 360 / 360 Weight 67.2 kg Intake: Oral 360 / 360 Other: # Voids 2 - Constitutional mild distress - Routine HEENT Exam Head: Present: normocephalic, atraumatic Eye: Present: EOMI ENT: Present: mucous membranes dry - Routine Neck Exam Present: supple - Routine Respiratory Exam Present: decreased breath sounds (But no obvious rhonchi or wheezing) - Routine Cardiovascular Exam Present: RRR - Routine Abdominal Exam Present: normoactive bowel sounds (Soft bowel sounds Taut abdomen, soreness and tenderness to light palpation upper abdomen) - Routine Extremities Exam Present: pulses intact - Routine Skin Exam Present: intact (Pale mucous membranes), dry - Routine Neurological Exam Present: normal speech (Answers only simple questions poor historian) - Detailed Neurological Exam: Coma Scale Eye Opening: Spontaneous Verbal Response: Words Motor Response: Obey commands Nury Coma Scale Total: 13 - Routine Psychiatric Exam Present: normal affect Results - Labs CBC & Chem 7: 05/20/18 12:42 05/20/18 12:42 Laboratory Results - last 24 hr 05/20/18 05/20/18 12:42 12:42 WBC 15.5 H RBC 4.10 Hgb 11.3 L Hct 34.8 L MCV 84.9 MCH 27.6 MCHC 32.5 RDW 16.5 Plt Count 421 MPV 7.9 Neut % (Auto) 80.7 H Lymph % (Auto) 9.7 Bryan % (Auto) 5.8 Eos % (Auto) 3.4 Baso % (Auto) 0.4 Neut # (Auto) 12.5 H Lymph # (Auto) 1.5 Bryan # (Auto) 0.9 Eos # (Auto) 0.5 H Baso # (Auto) 0.1 WBC Differential . Differential Comment Auto diff final Sodium 140 Potassium 3.6 Chloride 106 Carbon Dioxide 20.7 L Anion Gap 13 BUN 40 H Creatinine 3.17 H Estimated GFR 17 L Random Glucose 102 Calcium 8.3 L Assessment and Plan (1) Gastroparesis Status: Acute Code(s): K31.84 - Gastroparesis (2) Idiopathic pancreatitis Status: Chronic Code(s): K85.00 - Idiopathic acute pancreatitis without necrosis or infection - Plan Assessment: - Recurrent idiopathic pancreatitis- No signs of biliary obstruction from labs. Will order HIDA for evaluation Complaining of upper abdominal pain, located across entire upper abdomen, pain is constant, described as sharp. Worse with PO intake. Associated nausea, denies emesis. Recent hospitalization for same- initial ERCP unable to place stent due to kink in current stent, pt underwent PTC by IR, repeat ERCP done on 03/07 with successful metallic biliary stent placement and pt later had external biliary drain removed. Follow up in office in April with continued abdominal pain, noted to be seen in ER twice prior with same complaints, CT abdomen was negative. Pt was scheduled for repeat ERCP with stent exchange which she has not had done yet CT abdomen and pelvis WO IV contrast (05/16) Stable and grossly unremarkable follow-up CT scan compare to prior study. Stable tiny 2 mm nonobstructing stone right kidney. Stable 1.4 cm right renal cyst. 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 Pt currently NPO. 05/20/2018 patient is status post HIDA scan. Results show no focal deficits seen in the hepatic kinetics normal flow rate. Activity seen in the biliary system and 25 minutes normal excretion into the small bowel patient is status post colon cystectomy post CCK prompt visualization of activity in the duodenum no evidence of biliary obstruction. Patient continues to complain of some upper abdominal dull ache. Current treatment for recurrent idiopathic pancreatitis and supportive care. Since HIDA scan is negative for instructions okay to discharge from a GI standpoint and we will follow as outpatient. ERCP with stent change as an outpatient. Celiac plexus pain management as an outpatient, current hemoglobin stable at 11.3, WBC count 15.5 unspecified. Plan: Diet, continue feedings per J-tube Creon Anti-medics Pain management per attending Bowel regimen GI can follow on an outpatient basis. Pt has been seen per myself and Dr. Schwartz, this note was written on her behalf (2) Idiopathic pancreatitis Qualifiers: Chronicity: chronic Qualified Code(s): K86.1 - Other chronic pancreatitis
[2018-05-21] MEDS: Acetaminophen 325 MG Tablet PO PRN ×2 (03:28→08:02)
[2018-05-21] MEDS: Senna/Docusate Sodium 8.6/50 MG Tablet PO SCH ×2 (08:02→21:38)
[2018-05-21] MEDS: Metoprolol Tartrate 25 MG Tablet PO SCH ×2 (08:03→21:38)
[2018-05-21 09:54] LABS: Albumin 1.5 g/dL (3.4-5.0); Calcium 8.8 mg/dL (8.5-10.1); Carbon Dioxide 19.3 meq/L (21.0-32.0); Phosphorus 3.7 mg/dL (2.5-4.9); Potassium 3.7 meq/L (3.5-5.1)
--- NOTE | 2018-05-21 10:05 | P.DCO ---
- Diagnosis (1) Idiopathic pancreatitis (2) Acute on chronic kidney failure - Physical Therapy Order: Evaluate and treat - Home Health Nursing Order: Medical education, Signs/symptoms of disease process, Nursing assessment with vital signs - Side Panel Hanger Order: To evaluate: Living conditions/environment Order: To provide: Long range planning - Certification I have seen patient Park Larsen on 05/21/18. My clinical findings support the need for the requested home health care services because: Deconditioned with increased weakness I certify that my clinical findings support that this patient is homebound because: Unsteady gait/balance (1) Idiopathic pancreatitis Qualifiers: Chronicity: chronic Qualified Code(s): K86.1 - Other chronic pancreatitis (2) Acute on chronic kidney failure Qualifiers: Chronic kidney disease stage: stage 3 (moderate)
[2018-05-21] MEDS: Lipase/Protease/Amylase 12/38/60 DR Capsule PO SCH ×2 (11:12→12:53)
--- NOTE | 2018-05-21 12:45 | P.DS ---
Date of admission: 05/16/18 13:38 Primary care physician: Hong Peterson MD Attending physician on discharge: Alexander Eddy Anticipated date of discharge: 05/21/18 Brief History from admission: Ms. Larsen is an 82 y/o AAF with recurrent idiopathic pancreatitis. She has been hospitalized numerous times for issues with pain control related to recurrent pancreatitis. Her last admission was from 03/03/18 to 03/28/18 and she had biliary obstruction at that time. During that admission she underwent evaluation with ERCP (03/03/18) which noted multiple stones, migrated metal stent up into CBD, could not put plastic stent due to "kink" in current stent according to GI notes. She required PTC placement on 03/04 by IR which noted severe obstruction of the proximal common bile duct stent with very challenging recanalization requiring multiple wires and catheters. biliary stent placement. She had to have a repeat ERCP (03/07/18) and had to have the metal stent cleared of debris and they were able to confirm complete clearance of the stent with good emptying through the stent. She had a percutaneous cholangiogram on where the external portion of biliary drain was removed and the report showed some small hyperplasia within the distal aspect of the biliary stent but there is a patent channel down to the small bowel. Pt was [place] in [place] [facility] with abdominal pain. She had a CT Abd/ pelvis during that visit which noted portal venous stent, s/p cholecystectomy, GJ tube in place. Pts lipase was 110 at that time, Cr is 3.51/BUN 38, and WBC count 11. Pt was diagnosed with a UTI and given Keflex BID x 7 days. The urine culture noted probable contaminants. She was seen back in the ED on 04/30/18 with the same abdominal pain. Her labs at that time noted WBC count 17.1, Cr 3.72/BUN 35, GFR 14, Lipase 211. She was treated with supportive care, IVF and pain meds and improved and was discharged back to home. Pt presented back to the ED at [facility] [place] 05/16/18 with continued abdominal pain since her last admission per the pt but has been worse the last 3 weeks. She relates the pain to food intake which gradually worsens after eating. Pt also gets continuous TF at night. Pt has been having normal BMs. Denies any fevers or chills. She reports that the pain is the same pain that she has had previously with her pancreatitis. She has been trying to use Massena at night for the pain but its not helping. Her labs in the ED revealed WBC count 18.2, Cr 4.56/BUN 60, Lipase 350. Her LFTs were mostly WNL with TBili 0.3, AST 17, ALT less than 6, AlkPhos 211. She had a CT Abd/pelvis w/o IV contrast in the ED which noted stable and grossly unremarkable follow-up CT scan of the abdomen and pelvis compared to the prior study on 04/24/18, stable tiny 2 mm nonobstructing stone right kidney, and stable 1.4 cm right renal cyst. Pt reports that she was seen as an outpt by GI and was being set up for a repeat ERCP for stent exchange. Her UA was abnormal in the ED and he was given Rocephin. DS: Diagnosis - Discharge Diagnosis (1) Abdominal pain Status: Acute (2) Acute on chronic kidney failure Status: Acute (3) Gastroparesis Status: Acute (4) Idiopathic pancreatitis Status: Chronic DS: Medications - Discharge Medications Prescriptions: lactose-reduced food with fibr [Jevity 1.5 Alexander] 55 ml/hr FEEDING TUBE DIRECTED 30 Days ml DS: Summary Hospital Course: (1) Idiopathic pancreatitis Code(s): K85.00 - Idiopathic acute pancreatitis without necrosis or infection Status: Chronic Plan: - Ms. Larsen is an 82 y/o AAF with recurrent idiopathic pancreatitis. She has been hospitalized numerous times for issues with pain control related to recurrent pancreatitis. Her last admission was from 03/03/18 to 03/28/18 and she had biliary obstruction at that time. - During that admission she underwent evaluation with ERCP (03/03/18) which noted multiple stones, migrated metal stent up into CBD, could not put plastic stent due to "kink" in current stent according to GI notes. She required PTC placement on 03/04 by IR which noted severe obstruction of the proximal common bile duct stent with very challenging recanalization requiring multiple wires and catheters. biliary stent placement. She had to have a repeat ERCP (03/07/18) and had to have the metal stent cleared of debris and they were able to confirm complete clearance of the stent with good emptying through the stent. She had a percutaneous cholangiogram on 03/09/18 where the external portion of biliary drain was removed and the report showed some small hyperplasia within the distal aspect of the biliary stent but there is a patent channel down to the small bowel. - Pt presented back to the [place] [facility] [place] 05/16/18 with continued abdominal pain that is similar to her previous pancreatitis pain. - Her labs in the ED revealed WBC count 18.2, Cr 4.56/BUN 60, Lipase 350. Her LFTs were mostly WNL with TBili 0.3, AST 17, ALT less than 6, AlkPhos 211. - CT Abd/pelvis w/o IV contrast in the ED which noted stable and grossly unremarkable follow-up CT scan of the abdomen and pelvis compared to the prior study on 04/24/18, stable tiny 2 mm nonobstructing stone right kidney, and stable 1.4 cm right renal cyst. - comgmt with GI - Case d/w GI, Dr. Schwartz (05/18/18) - HIDA scan 05/19 reviewed and reveals: Negative examination. Normal biliary kinetics; no evidence of obstruction. - (05/19) patient cleared for DC per GI - Pt to have ERCP outpt in 2 weeks. Pt/family needs to call to arrange appointment. - Pt's last celiac plexus block performed by Dr. Rivera (05/13/17). Pt needs to f/ u with Dr. Rivera outpt to see if pt might benefit from repeat of the procedure - Change Jevity 1.5 to continuous feedings at 55ml/hour with free water flush 200ml q8 hours - Request consult from Dietary, RE: tube feeding optimization - Cont. IVF - Oral intake as tolerated - Pain control PRN with Massena and Morphine PRN - zofran as need for N/V - Monitor labs - Supportive care - DVT prophylaxis with SCDs (2) Acute on chronic kidney failure Code(s): N17.9 - Acute kidney failure, unspecified; N18.9 - Chronic kidney disease, unspecified Status: Acute Plan: - Pt with baseline stage 3 CKD, pt follows with Dr. Melara - Her labs at admission with a noted acute worsening of her baseline CKD. - Labs on 04/24 noted Cr is 3.51/BUN 38. Repeat labs on 04/30 with Cr 3.72/BUN 35 , GFR 14. - Labs at admission noted Cr 4.56/BUN 60 - Await consult from Nephrology - Repeat labs - Cr 4.08/BUN 51 (05/17) - Cr 3.74/BUN 46 (05/18) - Cr 3.44/BUN 43 (05/19) - cr 3.17/BUN 40 (05/20) - Cr 3.16/BUN 41 (05/21) - Avoid nephrotoxic agents (3) HTN (hypertension) Code(s): I10 - Essential (primary) hypertension Status: Acute Plan: - Cont. home meds - Monitor (4) GERD (gastroesophageal reflux disease) Code(s): K21.9 - Gastro-esophageal reflux disease without esophagitis Status: Acute Plan: - PPI (5) Anemia Code(s): D64.9 - Anemia, unspecified Status: Chronic Plan: - Pt with an acute decrease in her chronic anemia on 05/17 with Hgb down to 7.6 - > 11.3 (05/18) - No noted active bleeding - s/p Transfuse 2 units PRBCs with Lasix 20mg IV in between the two units Recommending DC to SNF. Patient and daughters refused. Will DC home with C - Time Spent with Patient Total time spent providing and/or coordinating discharge services: Greater than 30 minutes Exam Vital signs: Vital Signs 05/20/18 16:00 05/20/18 16:34 05/20/18 20:00 Temperature 98.1 F 97.9 F Pulse Rate 80 85 88 Respiratory Rate 18 21 Blood Pressure 126/60 128/66 Pulse Oximetry 97 100 05/21/18 00:00 05/21/18 04:00 05/21/18 08:00 Temperature 98 F 98.4 F 98.6 F Pulse Rate 90 77 86 Respiratory Rate 21 18 Blood Pressure 128/64 135/62 111/57 L Pulse Oximetry 99 98 05/21/18 08:03 05/21/18 10:20 Temperature Pulse Rate Respiratory Rate 18 16 Blood Pressure Pulse Oximetry Intake & Output 05/20/18 05/21/18 05/21/18 18:59 06:59 18:59 Intake Total 60 / 60 Balance 60 / 60 Weight 67.6 kg Intake: Oral 60 / 60 Other: # Voids 3 Narrative: GENERAL: NAD, AAOx3 CARDIO: Regular RESP: Breath sounds equal bilaterally. No accessory muscle use. ABD: Abdomen soft, GJ tube in place EXT: No cyanosis, or edema. Results Procedures completed during hospitalization: none Labs on day of discharge: Labs from last 24 hours 05/21/18 05/20/18 05/20/18 07:17 12:42 12:42 WBC 15.5 H RBC 4.10 Hgb 11.3 L Hct 34.8 L MCV 84.9 MCH 27.6 MCHC 32.5 RDW 16.5 Plt Count 421 MPV 7.9 Neut % (Auto) 80.7 H Lymph % (Auto) 9.7 [place] % (Auto) 5.8 Eos % (Auto) 3.4 Baso % (Auto) 0.4 Neut # (Auto) 12.5 H Lymph # (Auto) 1.5 [place] # (Auto) 0.9 Eos # (Auto) 0.5 H Baso # (Auto) 0.1 WBC Differential . Differential Comment Auto diff final Sodium 141 140 Potassium 3.7 3.6 Chloride 108 H 106 Carbon Dioxide 19.3 L 20.7 L Anion Gap 14 13 BUN 41 H 40 H Creatinine 3.16 H 3.17 H Estimated GFR 17 L 17 L Random Glucose 82 102 Calcium 8.8 8.3 L Phosphorus 3.7 Albumin 1.5 L - Impressions ITS Impressions Chest X-Ray 05/16/18 07:37 CONCLUSION: 1. No acute abnormality or significant interval change. Abdomen/Pelvis CT 05/16/18 07:43 CONCLUSION: 1. Stable and grossly unremarkable follow-up CT scan of the abdomen and pelvis compared to the prior study. 2. Stable tiny 2 mm nonobstructing stone right kidney. 3. Stable 1.4 cm right renal cyst. Bile Acid Absorption NM 05/19/18 00:00 CONCLUSION: 1. Negative examination. 2. Normal biliary kinetics; no evidence of obstruction. Discharge Plan - Discharge Disposition Patient Disposition: W/Home Health Service - Discharge Condition Condition: Stable - Discharge Details Anticipated Discharge Date: 05/21/18 - Physicians Team Primary Care Provider: Hong Peterson Attending Provider: Alexander Eddy Other Providers: Chula Schwartz MD
[2018-05-21] MEDS: KCL 20 mEq/NACL 0.45% Inj 1,000 ML IV.CONT SCH (14:38)
--- NOTE | 2018-05-21 15:09 | P.PNIM ---
Subjective Interval history: Patient reports continued abd pain with nausea. Patient states that she does not feel ready to go home asking for more pain medication. Patient seen with daughter at bedside with Dr. Eddy and Dr. Schwartz Physical Exam Vital signs: Vital Signs 05/20/18 16:00 05/20/18 16:34 05/20/18 20:00 Temperature 98.1 F 97.9 F Pulse Rate 80 85 88 Respiratory Rate 18 21 Blood Pressure 126/60 128/66 Pulse Oximetry 97 100 05/21/18 00:00 05/21/18 04:00 05/21/18 08:00 Temperature 98 F 98.4 F 98.6 F Pulse Rate 90 77 86 Respiratory Rate 21 18 Blood Pressure 128/64 135/62 111/57 L Pulse Oximetry 99 98 05/21/18 08:03 05/21/18 10:20 05/21/18 12:00 Temperature 98 F Pulse Rate 78 Respiratory Rate 18 16 20 Blood Pressure 130/75 Pulse Oximetry 99 Intake & Output 05/20/18 05/21/18 05/21/18 18:59 06:59 18:59 Intake Total 60 / 60 480 / 480 Balance 60 / 60 480 / 480 Weight 67.6 kg Intake: Oral 60 / 60 Other 480 / 480 Other: # Voids 3 Narrative: GENERAL: NAD, AAOx3 CARDIO: Regular RESP: Breath sounds equal bilaterally. No accessory muscle use. ABD: Abdomen soft, generalized tenderness with palpation, GJ tube in place, no drainage or erythema EXT: No cyanosis, or edema. Results - Labs CBC & Chem 7: 05/22/18 09:30 05/22/18 06:05 Laboratory Results - last 24 hr 05/21/18 07:17 Sodium 141 Potassium 3.7 Chloride 108 H Carbon Dioxide 19.3 L Anion Gap 14 BUN 41 H Creatinine 3.16 H Estimated GFR 17 L Random Glucose 82 Calcium 8.8 Phosphorus 3.7 Albumin 1.5 L - Imaging Chest X-Ray 05/16/18 07:37 CONCLUSION: 1. No acute abnormality or significant interval change. Abdomen/Pelvis CT 05/16/18 07:43 CONCLUSION: 1. Stable and grossly unremarkable follow-up CT scan of the abdomen and pelvis compared to the prior study. 2. Stable tiny 2 mm nonobstructing stone right kidney. 3. Stable 1.4 cm right renal cyst. Bile Acid Absorption NM 05/19/18 00:00 CONCLUSION: 1. Negative examination. 2. Normal biliary kinetics; no evidence of obstruction. Assessment and Plan - Assessment (1) Idiopathic pancreatitis Code(s): K85.00 - Idiopathic acute pancreatitis without necrosis or infection Status: Chronic (2) Acute on chronic kidney failure Code(s): N17.9 - Acute kidney failure, unspecified; N18.9 - Chronic kidney disease, unspecified Status: Acute (3) HTN (hypertension) Code(s): I10 - Essential (primary) hypertension Status: Acute (4) GERD (gastroesophageal reflux disease) Code(s): K21.9 - Gastro-esophageal reflux disease without esophagitis Status: Acute (5) Anemia Code(s): D64.9 - Anemia, unspecified Status: Chronic - Attending Attestation Patient examined. Assessment and plan formulated with Olga Weiss PA-C. I agree with the above. (1) Idiopathic pancreatitis Qualifiers: Chronicity: chronic Qualified Code(s): K86.1 - Other chronic pancreatitis (2) Acute on chronic kidney failure Qualifiers: Chronic kidney disease stage: stage 3 (moderate)
[2018-05-21] MEDS: DRONABINOL 2.5 MG CAPSULE PO SCH (15:42)
[2018-05-21] MEDS: [UNRECOGNIZED DRUG - REMARK] PO SCH (17:21)
--- NOTE | 2018-05-21 18:14 | P.PNGI ---
Subjective Interval history: Patient has constant complaints of abdominal pain Resting in the bed appears weakened minimal conversation Decreased appetite, albumin 1.5 Physical Exam Vital signs: Vital Signs 05/20/18 20:00 05/21/18 00:00 05/21/18 04:00 Temperature 97.9 F 98 F 98.4 F Pulse Rate 88 90 77 Respiratory Rate 21 21 18 Blood Pressure 128/66 128/64 135/62 Pulse Oximetry 100 99 98 05/21/18 08:00 05/21/18 08:03 05/21/18 10:20 Temperature 98.6 F Pulse Rate 88 Respiratory Rate 18 16 Blood Pressure 111/57 L Pulse Oximetry 05/21/18 12:00 05/21/18 16:00 Temperature 98 F 99.2 F Pulse Rate 78 97 H Respiratory Rate 20 Blood Pressure 130/75 117/69 Pulse Oximetry 99 Intake & Output 05/20/18 05/21/18 05/21/18 18:59 06:59 18:59 Intake Total 60 / 60 480 / 480 Balance 60 / 60 480 / 480 Weight 67.6 kg Intake: Oral 60 / 60 Other 480 / 480 Other: # Voids 3 - Constitutional mild distress - Routine HEENT Exam Head: Present: normocephalic (Pale mucous membranes) ENT: Present: mucous membranes dry - Routine Neck Exam Present: supple - Routine Respiratory Exam Present: decreased breath sounds (Low volumes) - Routine Cardiovascular Exam Present: RRR - Routine Abdominal Exam Present: normoactive bowel sounds (Soft minimal bowel sounds with abdominal generalized discomfort with and without palpation) - Routine Skin Exam Present: dry, pallor Results - Labs CBC & Chem 7: 05/20/18 12:42 05/21/18 07:17 Laboratory Results - last 24 hr 05/21/18 07:17 Sodium 141 Potassium 3.7 Chloride 108 H Carbon Dioxide 19.3 L Anion Gap 14 BUN 41 H Creatinine 3.16 H Estimated GFR 17 L Random Glucose 82 Calcium 8.8 Phosphorus 3.7 Albumin 1.5 L Assessment and Plan (1) Gastroparesis Status: Acute Code(s): K31.84 - Gastroparesis (2) Idiopathic pancreatitis Status: Chronic Code(s): K85.00 - Idiopathic acute pancreatitis without necrosis or infection - Plan Assessment: - Recurrent idiopathic pancreatitis- No signs of biliary obstruction from labs. Will order HIDA for evaluation Complaining of upper abdominal pain, located across entire upper abdomen, pain is constant, described as sharp. Worse with PO intake. Associated nausea, denies emesis. Recent hospitalization for same- initial ERCP unable to place stent due to kink in current stent, pt underwent PTC by IR, repeat ERCP done on 03/07 with successful metallic biliary stent placement and pt later had external biliary drain removed. Follow up in office in April with continued abdominal pain, noted to be seen in ER twice prior with same complaints, CT abdomen was negative. Pt was scheduled for repeat ERCP with stent exchange which she has not had done yet CT abdomen and pelvis WO IV contrast (05/16) Stable and grossly unremarkable follow-up CT scan compare to prior study. Stable tiny 2 mm nonobstructing stone right kidney. Stable 1.4 cm right renal cyst. 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 Pt currently NPO. 05/20/2018 patient is status post HIDA scan. Results show no focal deficits seen in the hepatic kinetics normal flow rate. Activity seen in the biliary system and 25 minutes normal excretion into the small bowel patient is status post colon cystectomy post CCK prompt visualization of activity in the duodenum no evidence of biliary obstruction. Patient continues to complain of some upper abdominal dull ache. Current treatment for recurrent idiopathic pancreatitis and supportive care. Since HIDA scan is negative for instructions okay to discharge from a GI standpoint and we will follow as outpatient. ERCP with stent change as an outpatient. Celiac plexus pain management as an outpatient, current hemoglobin stable at 11.3, WBC count 15.5 unspecified. 05/21/2018. Patient continues to complain of abdominal pain and require pain management with questionable effectiveness. She is weakened, Discussion between hospitalist and Dr. Schwartz for plan of care. Ultrasound of mesenteric vessels ordered today to rule out mesenteric ischemia, with possible ERCP Wednesday. Labs IgG, sed rate, discharge planning for possible tertiary center. There is no family present Plan: Diet, continue feedings per J-tube Labs IgG, sed rate pending Ultrasound of mesenteric vessels to rule out mesenteric ischemia, pending Anti-medics, Creon Pain management per attending Bowel regimen Supportive care Pt has been seen per myself and Dr. Schwartz, this note was written on her behalf (2) Idiopathic pancreatitis Qualifiers: Chronicity: chronic Qualified Code(s): K86.1 - Other chronic pancreatitis
--- NOTE | 2018-05-21 21:19 | P.PNNP ---
Subjective Interval history: ongoing abdominal pains Physical Exam Vital signs: Vital Signs 05/21/18 00:00 05/21/18 04:00 05/21/18 08:00 Temperature 98 F 98.4 F 98.6 F Pulse Rate 90 77 88 Respiratory Rate 21 18 Blood Pressure 128/64 135/62 111/57 L Pulse Oximetry 99 98 05/21/18 08:03 05/21/18 10:20 05/21/18 12:00 Temperature 98 F Pulse Rate 78 Respiratory Rate 18 16 20 Blood Pressure 130/75 Pulse Oximetry 99 05/21/18 16:00 05/21/18 20:00 Temperature 99.2 F 98.8 F Pulse Rate 97 H 101 H Respiratory Rate 18 Blood Pressure 117/69 128/60 Pulse Oximetry 100 Intake & Output 05/21/18 05/21/18 05/22/18 06:59 18:59 06:59 Intake Total 60 / 60 480 / 480 Balance 60 / 60 480 / 480 Weight 67.6 kg Intake: Oral 60 / 60 Other 480 / 480 Other: # Voids 3 - Constitutional no acute distress - Routine HEENT Exam Head: Present: normocephalic Eye: Present: EOMI ENT: Present: mucous membranes moist - Routine Neck Exam Present: supple - Routine Respiratory Exam Present: diminished air movement - Routine Cardiovascular Exam Present: RRR - Routine Abdominal Exam Present: soft - Routine Skin Exam Present: intact - Routine Neurological Exam Present: alert - Detailed Neurological Exam: Coma Scale Eye Opening: Spontaneous - Routine Psychiatric Exam Present: normal affect Assessment and Plan - Assessment (1) Acute on chronic kidney failure Code(s): N17.9 - Acute kidney failure, unspecified; N18.9 - Chronic kidney disease, unspecified Status: Acute Qualifiers: Chronic kidney disease stage: stage 3 (moderate) Plan: The patient has known history of chronic kidney disease, followed by Dr. Melara with a baseline creatinine 2.3-2.7. There is no proteinuria. 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 Creatinine at 3.1 -> 3.1 today Continue to encourage PO intake Free water increased. Avoid any nephrotoxins. Follow the urine output and the BUN and creatinine. Patient voiding Labs in AM (2) Anemia Code(s): D64.9 - Anemia, unspecified Status: Chronic Plan: Has received PRBC HGB stable will monitor (3) HTN (hypertension) Code(s): I10 - Essential (primary) hypertension Status: Acute Plan: Well controlled continue metoprolol
[2018-05-21] MEDS: rifAXIMin 550 MG Tablet PO SCH (21:38)
[2018-05-21] MEDS ORDERED: Morphine Inj 4 MG/ML Vial IV.PUSH ONE (23:30)
[2018-05-21] MEDS ORDERED: Morphine Inj 4 MG/ML Vial IV.PUSH PRN (23:30)
[2018-05-21 23:42] LABS: Hematocrit 37.6 % (35.0-46.0); Hemoglobin 12.1 gm/dL (11.6-15.3); Mean Corpuscular HGB Conc 32.2 % (32.0-36.0); Mean Corpuscular Hemoglobin 27.4 pg (27.0-34.0); Mean Corpuscular Volume 85.2 fL (80.0-100.0); Mean Platelet Volume 8.6 fL (7.0-11.0); Platelet Count 467 th/mm3 (150-450); Red Blood Count 4.41 mil/mm3 (4.00-5.30); Red Cell Distribution Width 16.8 % (11.6-17.2); White Blood Count 37.3 th/mm3 (4.0-11.0)
[2018-05-22 00:15] LABS: Alanine Aminotransferase 14 U/L (10-53); Albumin 1.7 g/dL (3.4-5.0); Alkaline Phosphatase 406 U/L (45-117); Anion Gap 17 meq/L (5-15); Aspartate Aminotransferase 25 U/L (15-37); Blood Urea Nitrogen 38 mg/dL (7-18); Calcium 8.6 mg/dL (8.5-10.1); Carbon Dioxide 18.5 meq/L (21.0-32.0); Chloride 106 meq/L (98-107); Glomerular Filtration Rate 17 mL/min (>89); Glucose,Random 81 mg/dL (74-106); Potassium 4.3 meq/L (3.5-5.1); Sodium 141 meq/L (136-145); Total Protein 7.2 g/dL (6.4-8.2)
[2018-05-22] MEDS: KCL 20 mEq/NACL 0.45% Inj 1,000 ML IV.CONT SCH (03:05)
[2018-05-22 07:07] LABS: Calcium 8.2 mg/dL (8.5-10.1); Carbon Dioxide 19.3 meq/L (21.0-32.0); Potassium 4.3 meq/L (3.5-5.1)
[2018-05-22] MEDS ORDERED: Diatrizoate Meglum/Diatrizoate Sod Liq 9 ML UDC PO ONE (09:13)
--- NOTE | 2018-05-22 09:37 | US ---
EXAM DATE: 05/22/2018 9:25 AM EDT AGE/SEX: 82 years / Female INDICATIONS: Abdominal pain. Vomiting. CLINICAL DATA: This is the patient's initial encounter. Patient reports that signs and symptoms have been present for 4 - 6 days and indicates a pain score of 9/10. MEDICAL/SURGICAL HISTORY: Gastroesophageal reflux disease. Chronic kidney disease. Hypertension . Idiopathic pancreatitis. Total knee replacement, left. Cholecystectomy. ERCP. COMPARISON: [facility] – [place] ABDOMEN & PELVIS W/O CONTRAST, 05/16/2018. . FINDINGS: AORTA: Sagittal Proximal: 93.3 cm/sec Sagittal Mid: 52.1 cm/sec Sagittal Distal: 88.4 cm/sec CELIAC ARTERY: * CA Origin: 376.6 cm/sec * CA Proximal: 327.6 cm/sec * CA Mid: 360.5 cm/sec * CA Distal: 364.5 cm/sec * Hepatic Artery: 235.2 cm/sec * Splenic Artery: 231.3 cm/sec SUPERIOR MESENTERIC ARTERY: * SMA Distal: 107.4 cm/sec * SMA Mid: 151.3 cm/sec * SMA Proximal: 111.3 CONCLUSION: 1. Elevated velocities as above. Electronically signed by: Yunier Santana MD 05/22/2018 9:35 AM EDT
[2018-05-22] MEDS: rifAXIMin 550 MG Tablet PO SCH ×2 (09:46→20:53)
[2018-05-22] MEDS: [UNRECOGNIZED DRUG - REMARK] PO SCH ×3 (09:46→17:20)
[2018-05-22] MEDS: Senna/Docusate Sodium 8.6/50 MG Tablet PO SCH ×2 (09:47→20:53)
[2018-05-22] MEDS: Metoprolol Tartrate 25 MG Tablet PO SCH ×2 (09:47→20:53)
[2018-05-22 10:15] LABS: Hematocrit 34.2 % (35.0-46.0); Hemoglobin 10.8 gm/dL (11.6-15.3); Mean Corpuscular HGB Conc 31.5 % (32.0-36.0); Mean Corpuscular Hemoglobin 27.4 pg (27.0-34.0); Mean Platelet Volume 8.5 fL (7.0-11.0); Platelet Count 351 th/mm3 (150-450); Red Blood Count 3.93 mil/mm3 (4.00-5.30); Red Cell Distribution Width 16.9 % (11.6-17.2); White Blood Count 32.1 th/mm3 (4.0-11.0)
[2018-05-22] MEDS: DRONABINOL 2.5 MG CAPSULE PO SCH ×2 (10:16→15:03)
[2018-05-22 10:29] LABS: Albumin 1.3 g/dL (3.4-5.0)
[2018-05-22 10:51] LABS: Lymphocytes 3 % (9-44); Metamyelocytes 1 % (0-1); Monocytes 2 % (0-8); Platelet Estimate Normal (Normal); Platelet Morphology Normal (Normal)
[2018-05-22 10:52] LABS: Toxic Vacuolation Present
[2018-05-22] MEDS: MethylPREDNISolone Sod Succinate Inj 40 MG/ML Vial IV.PUSH SCH ×2 (13:46→20:57)
--- NOTE | 2018-05-22 15:35 | P.PNGI ---
Subjective Interval history: Patient seen today.Elevated WBc-chronic for her , fluctuating for many years.States pain same , nausea, no vomiting .Some loose stools as per patient, nursing staff did not record stools today .Discussed about ERCP/stent exchange - she will agree .Await CT abdomen/pelvis results, HIDA-no biliary obstruction .US mesentery -high velocities , discussed with radiology , possible mesenteric ischemia -we will consult IR in am , contrast study will be difficult due to renal insufficiency . Feeding on hold pending CT Physical Exam Vital signs: Vital Signs 05/21/18 16:00 05/21/18 20:00 05/21/18 21:30 Temperature 99.2 F 98.8 F Pulse Rate 97 H 101 H Respiratory Rate 18 20 Blood Pressure 117/69 128/60 Pulse Oximetry 100 05/22/18 00:00 05/22/18 04:00 05/22/18 08:00 Temperature 97.4 F L 97.5 F L 98.1 F Pulse Rate 116 H 111 H 105 H Respiratory Rate 20 18 16 Blood Pressure 144/75 H 129/71 108/62 Pulse Oximetry 96 98 96 05/22/18 12:00 Temperature 98.1 F Pulse Rate 94 H Respiratory Rate 16 Blood Pressure 156/78 H Pulse Oximetry 98 Intake & Output 05/21/18 05/22/18 05/22/18 18:59 06:59 18:59 Intake Total 480 / 480 1000 / 1000 1050 / 1050 Balance 480 / 480 1000 / 1000 1050 / 1050 Weight 66.1 kg Intake: IV 1000 / 1000 1050 / 1050 Potassium Chlor 20 mEq/NACL 0. 1000 / 1000 1000 / 1000 45% Inj 1,000 ML @ 84 mls/hr IV .CONT .[id number] HITESH Rx#:[id number] Flagyl 250 mg Inj 50 ML @ 100 50 / 50 mls/hr IV.SIG Q8H HITESH Rx#: [id number] Other 480 / 480 Other: # Voids 1 Date of Last Bowel Movement 05/21/18 # Bowel Movements 1 - Constitutional no acute distress - Routine HEENT Exam Head: Present: normocephalic Eye: Present: PERRL ENT: Present: mucous membranes moist - Routine Respiratory Exam Comments: normal - Routine Cardiovascular Exam Present: RRR, S1, S2 - Routine Abdominal Exam Present: soft, normoactive bowel sounds, tenderness Comments: g/j tube in place - Routine Skin Exam Present: intact - Routine Psychiatric Exam Present: normal affect Results - Labs CBC & Chem 7: 05/22/18 09:30 05/22/18 06:05 Laboratory Results - last 24 hr 05/21/18 05/21/18 05/21/18 22:21 22:21 22:21 WBC 37.3 H RBC 4.41 Hgb 12.1 Hct 37.6 MCV 85.2 MCH 27.4 MCHC 32.2 RDW 16.8 Plt Count 467 H MPV 8.6 Prelim Diff (Auto) WBC Differential Seg Neuts % (Manual) Band Neuts % (Manual) Lymphocytes % (Manual) Monocytes % (Manual) Metamyelocytes % (Man) Abs Neuts (Manual) Differential Comment Toxic Vacuolation Platelet Estimate Platelet Morphology ESR 9 Hematology Comments Sodium 141 Potassium 4.3 Chloride 106 Carbon Dioxide 18.5 L Anion Gap 17 H BUN 38 H Creatinine 3.12 H Estimated GFR 17 L Random Glucose 81 Lactic Acid Calcium 8.6 Total Bilirubin 0.5 Direct Bilirubin Indirect Bilirubin AST 25 ALT 14 Alkaline Phosphatase 406 H Total Protein 7.2 D Albumin 1.7 L Lipase Procalcitonin Rheumatoid Factor Scrn Rheumatoid Factor Titer 05/22/18 05/22/18 05/22/18 06:05 06:05 09:30 WBC 32.1 H RBC 3.93 L Hgb 10.8 L Hct 34.2 L MCV 87.0 MCH 27.4 MCHC 31.5 L RDW 16.9 Plt Count 351 MPV 8.5 Prelim Diff (Auto) Manual diff required WBC Differential Manual diff final Seg Neuts % (Manual) 89 H Band Neuts % (Manual) 5 Lymphocytes % (Manual) 3 L Monocytes % (Manual) 2 Metamyelocytes % (Man) 1 Abs Neuts (Manual) 30.5 H Differential Comment . Toxic Vacuolation Present H Platelet Estimate Normal Platelet Morphology Normal ESR Hematology Comments Sodium 141 Potassium 4.3 Chloride 109 H Carbon Dioxide 19.3 L Anion Gap 13 BUN 36 H Creatinine 3.00 H Estimated GFR 18 L Random Glucose 114 H Lactic Acid Calcium 8.2 L Total Bilirubin Direct Bilirubin Indirect Bilirubin AST ALT Alkaline Phosphatase Total Protein Albumin Lipase 736 H Procalcitonin Rheumatoid Factor Scrn Rheumatoid Factor Titer 05/22/18 05/22/18 05/22/18 09:30 09:30 09:30 WBC RBC Hgb Hct MCV MCH MCHC RDW Plt Count MPV Prelim Diff (Auto) WBC Differential Seg Neuts % (Manual) Band Neuts % (Manual) Lymphocytes % (Manual) Monocytes % (Manual) Metamyelocytes % (Man) Abs Neuts (Manual) Differential Comment Toxic Vacuolation Platelet Estimate Platelet Morphology ESR Hematology Comments Sodium Potassium Chloride Carbon Dioxide Anion Gap BUN Creatinine Estimated GFR Random Glucose Lactic Acid 0.5 Calcium Total Bilirubin 0.3 Direct Bilirubin 0.1 Indirect Bilirubin 0.2 AST 43 H ALT 27 Alkaline Phosphatase 459 H Total Protein 6.0 L D Albumin 1.3 L Lipase Procalcitonin 2.8 Rheumatoid Factor Scrn Rheumatoid Factor Titer 05/22/18 13:40 WBC RBC Hgb Hct MCV MCH MCHC RDW Plt Count MPV Prelim Diff (Auto) WBC Differential Seg Neuts % (Manual) Band Neuts % (Manual) Lymphocytes % (Manual) Monocytes % (Manual) Metamyelocytes % (Man) Abs Neuts (Manual) Differential Comment Toxic Vacuolation Platelet Estimate Platelet Morphology ESR Hematology Comments Sodium Potassium Chloride Carbon Dioxide Anion Gap BUN Creatinine Estimated GFR Random Glucose Lactic Acid Calcium Total Bilirubin Direct Bilirubin Indirect Bilirubin AST ALT Alkaline Phosphatase Total Protein Albumin Lipase Procalcitonin Rheumatoid Factor Scrn Negative Rheumatoid Factor Titer Not Reportable - Imaging Impressions Abdomen Ultrasound 05/22/18 00:00 CONCLUSION: 1. Elevated velocities as above. Assessment and Plan (1) Gastroparesis Status: Acute Code(s): K31.84 - Gastroparesis (2) Idiopathic pancreatitis Status: Chronic Code(s): K85.00 - Idiopathic acute pancreatitis without necrosis or infection (3) Abdominal pain Status: Acute Code(s): R10.9 - Unspecified abdominal pain (4) History of biliary stent insertion Status: Acute Code(s): Z98.890 - Other specified postprocedural states (5) Elevated LFTs Status: Acute Code(s): R94.5 - Abnormal results of liver function studies - Attending Attestation abdominal pain , chronic -unclear etiology-patient had extensive work-up in the past chronic pancreatitis -possible biliary -s/p biliary metallic stent -s/p recent ercp /ptc with cleaning of stent -nee revision, double stenting or removal with replacement -acute exacerbation Gastroparesis -s/p g/j tube still with nausea, abdominal pain, cannot tolerate po feeding chronic recurrent elevation of wbc-as per medicine chronic, had extensive work- up in the past -no etiology found abnormal us mesentery -possible mesenteric ischemia we will discuss with IR in am Recommendations ERCP with stent replacement/ removal vs double stenting in am unless indicated otherwise await ct abdomen/pelvis continue Rifaximin/Creon Start Actigall/Zosyn/Falgyl pending stools c diff fu porphyrins , rest of blood w-up urine analysis npo for now except medications consult IR in am in view of abnormal us mesentery supportive care pain management, referral to tertiary center-she was evaluated in the past at [facility] for same issues , agree with [facility] op (2) Idiopathic pancreatitis Qualifiers: Chronicity: chronic Qualified Code(s): K86.1 - Other chronic pancreatitis
--- NOTE | 2018-05-22 15:53 | P.PNIM ---
Subjective Interval history: Pt continues to c/o abdominal pain. Pt's abdominal pain seems less severe with distraction. Physical Exam Vital signs: Vital Signs 05/21/18 16:00 05/21/18 20:00 05/21/18 21:30 Temperature 99.2 F 98.8 F Pulse Rate 97 H 101 H Respiratory Rate 18 20 Blood Pressure 117/69 128/60 Pulse Oximetry 100 05/22/18 00:00 05/22/18 04:00 05/22/18 08:00 Temperature 97.4 F L 97.5 F L 98.1 F Pulse Rate 116 H 111 H 105 H Respiratory Rate 20 18 16 Blood Pressure 144/75 H 129/71 108/62 Pulse Oximetry 96 98 96 05/22/18 12:00 Temperature 98.1 F Pulse Rate 94 H Respiratory Rate 16 Blood Pressure 156/78 H Pulse Oximetry 98 Intake & Output 05/21/18 05/22/18 05/22/18 18:59 06:59 18:59 Intake Total 480 / 480 1000 / 1000 1050 / 1050 Balance 480 / 480 1000 / 1000 1050 / 1050 Weight 66.1 kg Intake: IV 1000 / 1000 1050 / 1050 Potassium Chlor 20 mEq/NACL 0. 1000 / 1000 1000 / 1000 45% Inj 1,000 ML @ 84 mls/hr IV .CONT .[id number] [facility] Rx#:[id number] Flagyl 250 mg Inj 50 ML @ 100 50 / 50 mls/hr IV.SIG Q8H [facility] Rx#: [id number] Other 480 / 480 Other: # Voids 1 Date of Last Bowel Movement 05/21/18 # Bowel Movements 1 Narrative: GENERAL: NAD, AAOx3 CARDIO: Regular RESP: Breath sounds equal bilaterally. No accessory muscle use. ABD: Abdomen soft, generalized tenderness with palpation --> but less tender with distraction GJ tube in place, no drainage or erythema EXT: No cyanosis, or edema. Results - Labs CBC & Chem 7: 05/22/18 09:30 05/22/18 06:05 - Imaging ITS Impressions Chest X-Ray 05/16/18 07:37 CONCLUSION: 1. No acute abnormality or significant interval change. Abdomen/Pelvis CT 05/16/18 07:43 CONCLUSION: 1. Stable and grossly unremarkable follow-up CT scan of the abdomen and pelvis compared to the prior study. 2. Stable tiny 2 mm nonobstructing stone right kidney. 3. Stable 1.4 cm right renal cyst. Bile Acid Absorption NM 05/19/18 00:00 CONCLUSION: 1. Negative examination. 2. Normal biliary kinetics; no evidence of obstruction. Abdomen Ultrasound 05/22/18 00:00 CONCLUSION: 1. Elevated velocities as above. Assessment and Plan - Assessment (1) Idiopathic pancreatitis Code(s): K85.00 - Idiopathic acute pancreatitis without necrosis or infection Status: Chronic Plan: (1) Idiopathic pancreatitis Code(s): K85.00 - Idiopathic acute pancreatitis without necrosis or infection Status: Chronic Plan: - Ms. Larsen is an 82 y/o AAF with recurrent idiopathic pancreatitis. She has been hospitalized numerous times for issues with pain control related to recurrent pancreatitis. Her last admission was from 03/03/18 to 03/28/18 and she had biliary obstruction at that time. - During that admission she underwent evaluation with ERCP (03/03/18) which noted multiple stones, migrated metal stent up into CBD, could not put plastic stent due to "kink" in current stent according to GI notes. She required PTC placement on 03/04 by IR which noted severe obstruction of the proximal common bile duct stent with very challenging recanalization requiring multiple wires and catheters. biliary stent placement. She had a repeat ERCP (03/07/18) and had to have the metal stent cleared of debris and they were able to confirm complete clearance of the stent with good emptying through the stent. She had a percutaneous cholangiogram on 03/09/18 where the external portion of biliary drain was removed and the report showed some small hyperplasia within the distal aspect of the biliary stent but there is a patent channel down to the small bowel. - Pt presented back to the ED at [facility] on 05/16/18 with continued abdominal pain that is similar to her previous pancreatitis pain. - Her labs in the ED revealed WBC count 18.2, Cr 4.56/BUN 60, Lipase 350. Her LFTs were mostly WNL with TBili 0.3, AST 17, ALT less than 6, AlkPhos 211. - CT Abd/pelvis w/o IV contrast in the ED which noted stable and grossly unremarkable follow-up CT scan of the abdomen and pelvis compared to the prior study on 04/24/18, stable tiny 2 mm nonobstructing stone right kidney, and stable 1.4 cm right renal cyst. - comgmt with GI - Case d/w GI, Dr. Schwartz (05/22/18) - HIDA scan 05/19 reviewed and reveals: Negative examination. Normal biliary kinetics; no evidence of obstruction. - Bile Acid Absorption NM 05/19/18 1. Negative examination. 2. Normal biliary kinetics; no evidence of obstruction. - Abdomen Ultrasound 05/22/18 - diffuse Elevated velocities - clinical significance of abd US (05/22) is unclear. Pt's lactic acid is WNL - d/w IR. Does NOT seem clear that pt requires any intervention - Pt's last celiac plexus block performed by Dr. Rivera (05/13/17). Pt needs to f/ u with Dr. Rivera outpt to see if pt might benefit from repeat of the procedure - Pt now with increased abdominal pain & increasing lipase (05/22) - On previous visits pt's pancreatis improved with IV steroids thought to be d/ t inflammatory component - Will hold continuous TF with Jevity 1.5 - IVFs - start solumedrol 40mg IV BID - prn pain control with Clifford - zofran prn - GI is considering ERCP with stent replacement/ removal vs double stenting in am unless indicated otherwise - await ct abdomen/pelvis - Rifaximin/Creon - Start Actigall/Zosyn/Falgyl pending stools c diff. Consider stopping zosyn/ flagyl Wednesday - additional blood work ordered by GI is pending - following current admission consider - repeat outpt consult with Dr. Rivera pain mgmt, re: repeat celiac block? - referral to tertiary center-she was evaluated in the past at [facility] for same issues , - [facility] per pt's daughter for symptom mgmt? - Supportive care - DVT prophylaxis with SCDs (2) Acute on chronic kidney failure Code(s): N17.9 - Acute kidney failure, unspecified; N18.9 - Chronic kidney disease, unspecified Status: Acute Plan: - Pt with baseline stage 3 CKD, pt follows with Dr. Melara - Her labs at admission with a noted acute worsening of her baseline CKD. - Labs on 04/24 noted Cr is 3.51/BUN 38. Repeat labs on 04/30 with Cr 3.72/BUN 35 , GFR 14. - Labs at admission noted Cr 4.56/BUN 60 - Await consult from Nephrology - Repeat labs - Cr 4.08/BUN 51 (05/17) - Cr 3.74/BUN 46 (05/18) - Cr 3.44/BUN 43 (05/19) - cr 3.17/BUN 40 (05/20) - Cr 3.00 (05/22) - continue IVFs - Avoid nephrotoxic agents (3) HTN (hypertension) Code(s): I10 - Essential (primary) hypertension Status: Acute Plan: - Cont. home meds - Monitor (4) GERD (gastroesophageal reflux disease) Code(s): K21.9 - Gastro-esophageal reflux disease without esophagitis Status: Acute Plan: - PPI (5) Anemia Code(s): D64.9 - Anemia, unspecified Status: Chronic Plan: - Pt with an acute decrease in her chronic anemia on 05/17 with Hgb down to 7.6 - > 11.3 (05/18) - No noted active bleeding - s/p Transfusion 2 units PRBCs 05/17 - Hg stable (2) Acute on chronic kidney failure Code(s): N17.9 - Acute kidney failure, unspecified; N18.9 - Chronic kidney disease, unspecified Status: Acute Plan: - see above (3) HTN (hypertension) Code(s): I10 - Essential (primary) hypertension Status: Acute Plan: - Cont. home meds - Monitor (4) GERD (gastroesophageal reflux disease) Code(s): K21.9 - Gastro-esophageal reflux disease without esophagitis Status: Acute Plan: - PPI (5) Anemia Code(s): D64.9 - Anemia, unspecified Status: Chronic Plan: - Pt with an acute decrease in her chronic anemia on 05/17 with Hgb down to 7.6 - No noted active bleeding - Transfuse 2 units PRBCs with Lasix 20mg IV in between the two units - Repeat labs in AM (1) Idiopathic pancreatitis Qualifiers: Chronicity: chronic Qualified Code(s): K86.1 - Other chronic pancreatitis (2) Acute on chronic kidney failure Qualifiers: Chronic kidney disease stage: stage 3 (moderate) (5) Anemia Qualifiers: Anemia type: unspecified type Qualified Code(s): D64.9 - Anemia, unspecified
--- NOTE | 2018-05-22 16:15 | P.PNNP ---
Subjective Interval history: ongoing abdominal discomfort Physical Exam Vital signs: Vital Signs 05/21/18 20:00 05/21/18 21:30 05/22/18 00:00 Temperature 98.8 F 97.4 F L Pulse Rate 101 H 116 H Respiratory Rate 18 20 20 Blood Pressure 128/60 144/75 H Pulse Oximetry 100 96 05/22/18 04:00 05/22/18 08:00 05/22/18 12:00 Temperature 97.5 F L 98.1 F 98.1 F Pulse Rate 111 H 105 H 94 H Respiratory Rate 18 16 16 Blood Pressure 129/71 108/62 156/78 H Pulse Oximetry 98 96 98 Intake & Output 05/21/18 05/22/18 05/22/18 18:59 06:59 18:59 Intake Total 480 / 480 1000 / 1000 1050 / 1050 Balance 480 / 480 1000 / 1000 1050 / 1050 Weight 66.1 kg Intake: IV 1000 / 1000 1050 / 1050 Potassium Chlor 20 mEq/NACL 0. 1000 / 1000 1000 / 1000 45% Inj 1,000 ML @ 84 mls/hr IV .CONT .[id number] [facility] Rx#:[id number] Flagyl 250 mg Inj 50 ML @ 100 50 / 50 mls/hr IV.SIG Q8H [facility] Rx#: [id number] Other 480 / 480 Other: # Voids 1 Date of Last Bowel Movement 05/21/18 # Bowel Movements 1 - Constitutional no acute distress - Routine HEENT Exam Head: Present: normocephalic Eye: Present: EOMI ENT: Present: mucous membranes moist - Routine Neck Exam Present: supple - Routine Respiratory Exam Present: diminished air movement - Routine Cardiovascular Exam Present: RRR - Routine Abdominal Exam Present: soft - Routine Skin Exam Present: intact - Routine Neurological Exam Present: alert - Detailed Neurological Exam: Coma Scale Eye Opening: Spontaneous Assessment and Plan - Assessment (1) Acute on chronic kidney failure Code(s): N17.9 - Acute kidney failure, unspecified; N18.9 - Chronic kidney disease, unspecified Status: Acute Qualifiers: Chronic kidney disease stage: stage 3 (moderate) Plan: The patient has known history of chronic kidney disease, followed by Dr. Melara with a baseline creatinine 2.3-2.7. There is no proteinuria. 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 Creatinine at 3.1 -> 3.1 -> 3 today renal function gradually has improved Continue to encourage PO intake (although NPO for ERCP tomorrow) Na stable at 141 Avoid any nephrotoxins. Follow the urine output and the BUN and creatinine. Patient voiding Labs in AM (2) Anemia Code(s): D64.9 - Anemia, unspecified Status: Chronic Qualifiers: Anemia type: unspecified type Qualified Code(s): D64.9 - Anemia, unspecified Plan: Has received PRBC HGB stable will monitor (3) HTN (hypertension) Code(s): I10 - Essential (primary) hypertension Status: Acute Plan: Well controlled continue metoprolol
[2018-05-22] MEDS ORDERED: Piperacil/Tazo 2.25 GM Premix 50 ML IV.SIG SCH (17:00)
--- NOTE | 2018-05-22 17:14 | CT ---
EXAM DATE: 05/22/2018 4:49 PM EDT AGE/SEX: 82 years / Female INDICATIONS: Diffuse abdominal pain, nausea, elevated white blood cell count. CLINICAL DATA: This is the patient's initial encounter. Patient reports that signs and symptoms have been present for 1 day and indicates a pain score of 9/10. MEDICAL/SURGICAL HISTORY: Pancreatitis. Chronic renal failure. Gastroesophageal reflux diseas e. Hypertension. Cholecystectomy. ERCP, GJ tube placement. RADIATION DOSE: 7.04 CTDI (mGy) [place] [facility] [place] & [place]/O CONTRAST, 05/16/2018. . TECHNIQUE: Multiple contiguous axial images were obtained through the abdomen. Images were obtained using multiple row detector helical technique. Using automated exposure control and adjustment of the mA and/or kV according to patient size, radiation dose was kept as low as reasonably achievable to o btain optimal diagnostic quality images. DICOM format image data is available electronically for rev iew and comparison. FINDINGS: There are small bilateral pleural effusions with basilar dependent atelectasis. Small pericardial eff usion. No acute findings in the liver, spleen, adrenals or pancreas. Again seen is a gastrojejunostom y tube and a biliary stent. Previous cholecystectomy. Left kidney is atrophic. Bilateral renal cysts present. No pelvic masses or free fluid. Mild anasarca. CONCLUSION: 1. No loculated fluid within the abdomen and pelvis to suggest abscess. No bowel obstruction. 2. Gastrojejunostomy tube present. There is also a biliary stent. Previous cholecystectomy. 3. Small bilateral pleural effusions. 4. 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 Electronically signed by: Jordon Gloria MD 05/22/2018 5:12 PM EDT
[2018-05-23] MEDS ORDERED: Chlorhexidine Gluconate 2% 1 Pack (2 Cloths) TOPICAL SCH (03:30)
[2018-05-23] MEDS ORDERED: Sodium Chlor 0.9% Inj 500 ML IV.SIG SCH (04:00)
[2018-05-23] MEDS: Metoprolol Tartrate 25 MG Tablet PO SCH ×2 (08:37→22:10)
[2018-05-23] MEDS: MethylPREDNISolone Sod Succinate Inj 40 MG/ML Vial IV.PUSH SCH ×2 (08:37→22:10)
[2018-05-23] MEDS: [UNRECOGNIZED DRUG - REMARK] PO SCH ×3 (08:41→18:04)
[2018-05-23] MEDS: Senna/Docusate Sodium 8.6/50 MG Tablet PO SCH ×2 (08:41→22:10)
[2018-05-23] MEDS: rifAXIMin 550 MG Tablet PO SCH ×2 (08:42→22:09)
[2018-05-23 08:55] LABS: Baso # (Auto) 0.1 th/mm3 (0.0-0.2); Baso % (Auto) 0.4 % (0.0-2.0); Hematocrit 32.7 % (35.0-46.0); Hemoglobin 10.5 gm/dL (11.6-15.3); Lymph # (Auto) 0.8 th/mm3 (1.0-4.8); Lymph % (Auto) 5.2 % (9.0-44.0); Mean Corpuscular HGB Conc 32.1 % (32.0-36.0); Mean Corpuscular Hemoglobin 27.4 pg (27.0-34.0); Mean Corpuscular Volume 85.5 fL (80.0-100.0); Mean Platelet Volume 7.7 fL (7.0-11.0); Mono # (Auto) 0.1 th/mm3 (0.0-0.9); Mono % (Auto) 0.4 % (0.0-8.0); Neut # (Auto) 14.7 th/mm3 (1.8-7.7); Platelet Count 391 th/mm3 (150-450); Red Blood Count 3.83 mil/mm3 (4.00-5.30); White Blood Count 15.6 th/mm3 (4.0-11.0)
[2018-05-23 09:13] LABS: Albumin 1.4 g/dL (3.4-5.0); Anion Gap 16 meq/L (5-15); Aspartate Aminotransferase 15 U/L (15-37); Blood Urea Nitrogen 44 mg/dL (7-18); Calcium 8.3 mg/dL (8.5-10.1); Carbon Dioxide 16.3 meq/L (21.0-32.0); Chloride 107 meq/L (98-107); Glomerular Filtration Rate 18 mL/min (>89); Glucose,Random 110 mg/dL (74-106); Lipase 334 U/L (73-393); Potassium 4.8 meq/L (3.5-5.1); Sodium 139 meq/L (136-145)
[2018-05-23 09:14] LABS: Alanine Aminotransferase 19 U/L (10-53)
[2018-05-23 09:16] LABS: Alkaline Phosphatase 399 U/L (45-117); Total Protein 5.9 g/dL (6.4-8.2)
--- NOTE | 2018-05-23 09:48 | P.PNIM ---
Subjective Interval history: looks more comfortable no n/v/d currently going for ercp today I'm told Physical Exam Vital signs: Vital Signs 05/22/18 12:00 05/22/18 21:00 Temperature 98.1 F Pulse Rate 94 H Respiratory Rate 16 16 Blood Pressure 156/78 H Pulse Oximetry 98 Intake & Output 05/22/18 05/23/18 05/23/18 18:59 06:59 18:59 Intake Total 1050 / 1050 1000 / 1000 Balance 1050 / 1050 1000 / 1000 Intake: IV 1050 / 1050 1000 / 1000 Potassium Chlor 20 mEq/NACL 0. 1000 / 1000 45% Inj 1,000 ML @ 84 mls/hr IV .CONT .[id number] [facility] Rx#:[id number] NS + KCl 20 mEq Inj 1,000 ML @ 1000 / 1000 84 mls/hr IV.CONT .[id number] [facility] Rx#:[id number] Flagyl 250 mg Inj 50 ML @ 100 50 / 50 mls/hr IV.SIG Q8H [facility] Rx#: [id number] Other: Date of Last Bowel Movement 05/21/18 heart reg lung cta abd s/nd/mild epigastric tenderness. bs ext no edema Results - Labs CBC & Chem 7: 05/23/18 08:25 05/23/18 08:25 Laboratory Results - last 24 hr 05/22/18 05/22/18 05/22/18 06:05 09:30 09:30 WBC 32.1 H RBC 3.93 L Hgb 10.8 L Hct 34.2 L MCV 87.0 MCH 27.4 MCHC 31.5 L RDW 16.9 Plt Count 351 MPV 8.5 Prelim Diff (Auto) Manual diff required Neut % (Auto) Lymph % (Auto) Davis % (Auto) Eos % (Auto) Baso % (Auto) Neut # (Auto) Lymph # (Auto) Davis # (Auto) Eos # (Auto) Baso # (Auto) WBC Differential Manual diff final Seg Neuts % (Manual) 89 H Band Neuts % (Manual) 5 Lymphocytes % (Manual) 3 L Monocytes % (Manual) 2 Metamyelocytes % (Man) 1 Abs Neuts (Manual) 30.5 H Differential Comment . Toxic Vacuolation Present H Platelet Estimate Normal Platelet Morphology Normal Hematology Comments Sodium Potassium Chloride Carbon Dioxide Anion Gap BUN Creatinine Estimated GFR Random Glucose Lactic Acid Calcium Total Bilirubin 0.3 Direct Bilirubin 0.1 Indirect Bilirubin 0.2 AST 43 H ALT 27 Alkaline Phosphatase 459 H Total Protein 6.0 L D Albumin 1.3 L Lipase 736 H Procalcitonin Rheumatoid Factor Scrn Rheumatoid Factor Titer 05/22/18 05/22/18 05/22/18 09:30 09:30 13:40 WBC RBC Hgb Hct MCV MCH MCHC RDW Plt Count MPV Prelim Diff (Auto) Neut % (Auto) Lymph % (Auto) Davis % (Auto) Eos % (Auto) Baso % (Auto) Neut # (Auto) Lymph # (Auto) Davis # (Auto) Eos # (Auto) Baso # (Auto) WBC Differential Seg Neuts % (Manual) Band Neuts % (Manual) Lymphocytes % (Manual) Monocytes % (Manual) Metamyelocytes % (Man) Abs Neuts (Manual) Differential Comment Toxic Vacuolation Platelet Estimate Platelet Morphology Hematology Comments Sodium Potassium Chloride Carbon Dioxide Anion Gap BUN Creatinine Estimated GFR Random Glucose Lactic Acid 0.5 Calcium Total Bilirubin Direct Bilirubin Indirect Bilirubin AST ALT Alkaline Phosphatase Total Protein Albumin Lipase Procalcitonin 2.8 Rheumatoid Factor Scrn Negative Rheumatoid Factor Titer Not Reportable 05/23/18 05/23/18 08:25 08:25 WBC 15.6 H D RBC 3.83 L Hgb 10.5 L Hct 32.7 L MCV 85.5 MCH 27.4 MCHC 32.1 RDW 17.0 Plt Count 391 MPV 7.7 Prelim Diff (Auto) Neut % (Auto) 94.0 H Lymph % (Auto) 5.2 L Davis % (Auto) 0.4 Eos % (Auto) 0.0 Baso % (Auto) 0.4 Neut # (Auto) 14.7 H Lymph # (Auto) 0.8 L Davis # (Auto) 0.1 Eos # (Auto) 0.0 Baso # (Auto) 0.1 WBC Differential . Seg Neuts % (Manual) Band Neuts % (Manual) Lymphocytes % (Manual) Monocytes % (Manual) Metamyelocytes % (Man) Abs Neuts (Manual) Differential Comment Auto diff final Toxic Vacuolation Platelet Estimate Platelet Morphology Hematology Comments Sodium 139 Potassium 4.8 Chloride 107 Carbon Dioxide 16.3 L Anion Gap 16 H BUN 44 H Creatinine 3.08 H Estimated GFR 18 L Random Glucose 110 H Lactic Acid Calcium 8.3 L Total Bilirubin 0.2 Direct Bilirubin Indirect Bilirubin AST 15 ALT 19 Alkaline Phosphatase 399 H Total Protein 5.9 L Albumin 1.4 L Lipase 334 Procalcitonin Rheumatoid Factor Scrn Rheumatoid Factor Titer - Imaging Impressions Abdomen/Pelvis CT 05/22/18 00:00 CONCLUSION: 1. No loculated fluid within the abdomen and pelvis to suggest abscess. No bowel obstruction. 2. Gastrojejunostomy tube present. There is also a biliary stent. Previous cholecystectomy. 3. Small bilateral pleural effusions. 4. 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 Assessment and Plan - Assessment (1) Abdominal pain Code(s): R10.9 - Unspecified abdominal pain Status: Acute Plan: (1) Idiopathic pancreatitis Code(s): K85.00 - Idiopathic acute pancreatitis without necrosis or infection Status: Chronic Plan: - Ms. Larsen is an 82 y/o AAF with recurrent idiopathic pancreatitis. She has been hospitalized numerous times for issues with pain control related to recurrent pancreatitis. Her last admission was from 03/03/18 to 03/28/18 and she had biliary obstruction at that time. - During that admission she underwent evaluation with ERCP (03/03/18) which noted multiple stones, migrated metal stent up into CBD, could not put plastic stent due to "kink" in current stent according to GI notes. She required PTC placement on 03/04 by IR which noted severe obstruction of the proximal common bile duct stent with very challenging recanalization requiring multiple wires and catheters. biliary stent placement. She had to have a repeat ERCP (03/07/18) and had to have the metal stent cleared of debris and they were able to confirm complete clearance of the stent with good emptying through the stent. She had a percutaneous cholangiogram on 03/09/18 where the external portion of biliary drain was removed and the report showed some small hyperplasia within the distal aspect of the biliary stent but there is a patent channel down to the small bowel. - Pt presented back to the ED at [facility] [place] on 05/16/18 with continued abdominal pain that is similar to her previous pancreatitis pain. - Her labs in the ED revealed WBC count 18.2, Cr 4.56/BUN 60, Lipase 350. Her LFTs were mostly WNL with TBili 0.3, AST 17, ALT less than 6, AlkPhos 211. - CT Abd/pelvis w/o IV contrast in the ED which noted stable and grossly unremarkable follow-up CT scan of the abdomen and pelvis compared to the prior study on 04/24/18, stable tiny 2 mm nonobstructing stone right kidney, and stable 1.4 cm right renal cyst. - comgmt with GI - Case d/w GI, Dr. Schwartz (05/18/18) - HIDA scan 05/19 reviewed and reveals: Negative examination. Normal biliary kinetics; no evidence of obstruction. - - Pt's last celiac plexus block performed by Dr. Rivera (05/13/17). Pt needs to f/ u with Dr. Rivera outpt to see if pt might benefit from repeat of the procedure - Change Jevity 1.5 to continuous feedings at 55ml/hour with free water flush 200ml q8 hours - Request consult from Dietary, RE: tube feeding optimization - Pain control PRN with Inchelium and Morphine PRN - zofran as need for N/V - Monitor labs - Supportive care - DVT prophylaxis with SCDs - 05/20/18 Patient reports continued abd pain with nausea. patient states that she does not feel ready to go home asking for more pain medication. - Patient evaluated with Dr. Eddy and Dr. Schwartz together on 05/22 and plan for abd US to evaluate arterial flow and ERCP on Wednesday with possible stent placement cont ivf and tube feed on hold for procedure. (2) Acute on chronic kidney failure Code(s): N17.9 - Acute kidney failure, unspecified; N18.9 - Chronic kidney disease, unspecified Status: Acute Plan: - Pt with baseline stage 3 CKD, pt follows with Dr. Melara - Her labs at admission with a noted acute worsening of her baseline CKD. - Labs on 04/24 noted Cr is 3.51/BUN 38. Repeat labs on 04/30 with Cr 3.72/BUN 35 , GFR 14. - Labs at admission noted Cr 4.56/BUN 60 - Await consult from Nephrology - Repeat labs - Cr 4.08/BUN 51 (7/3) - Cr 3.74/BUN 46 (7/4) - Cr 3.44/BUN 43 (7/5) - cr 3.17/BUN 40 (/6) - ivf - Avoid nephrotoxic agents (3) HTN (hypertension) Code(s): I10 - Essential (primary) hypertension Status: Acute Plan: - Cont. home meds - Monitor (4) GERD (gastroesophageal reflux disease) Code(s): K21.9 - Gastro-esophageal reflux disease without esophagitis Status: Acute Plan: - PPI (5) Anemia Code(s): D64.9 - Anemia, unspecified Status: Chronic Plan: - Pt with an acute decrease in her chronic anemia on 05/17 with Hgb down to 7.6 - > 11.3 (05/18) - No noted active bleeding - s/p Transfuse 2 units PRBCs with Lasix 20mg IV in between the two units
--- NOTE | 2018-05-23 10:21 | GIPROC ---
[facility] [address] [facility]. [facility], [address] ERCP PROCEDURE REPORT EXAM DATE: 05/23/2018 PATIENT NAME: Park Larsen MR #: [id number] BIRTHDATE: 1935 ATTENDING: Jelly Lino MD ORDER #: [id number] [facility] TECH: Steven Darnell and Bettye Serrano STATUS: inpatient INDICATIONS: The patient is a 82 yr old female here for an ERCP due to elevated alkaline phosphatase and abdominal pain PROCEDURE PERFORMED: ERCP with removal of calculus/calculi ERCP with stent placement MEDICATIONS: None and Per Anesthesia. CONSENT: The patient understands the risks and benefits of the procedure and understands that these risks include, but are not limited to: sedation, allergic reaction, infection, perforation and/or bleeding. Alternative means of evaluation and treatment include, among others: physical exam, x-rays, and/or surgical intervention. The patient elects to proceed with this endoscopic procedure. medical equipment was checked for proper function. Hand hygiene and appropriate measures for infection prevention was taken. After the risks, benefits and alternatives of the procedure were thoroughly explained, Informed was verified, confirmed and timeout was successfully executed by the treatment team. With the patient in left semi-prone position, medications were administered intravenously.The Pentax [id number] was passed from the mouth into the esophagus and further advanced from the esophagus into the stomach. From stomach scope was directed to the second portion of the duodenum. Major papilla was aligned with the duodenoscope. The scope position was confirmed fluoroscopically. Rest of the findings/therapeutics are given below. The scope was then completely withdrawn from the patient and the procedure completed. The pulse, BP, and O2 saturation were monitored and documented by the physician and the nursing staff throughout the entire procedure. The patient was cared for as planned according to standard protocol. The patient was then discharged to recovery in stable condition and with appropriate post procedure care. GJ tube in place. The ampulla was located the second portion of the duodenum. A previously placed stent was seen via flouroscopy but migrated in . Multiple filling defects were seen in the common bile duct within the metalic stent. There was a dilation of the intraheptic ducts. Contrast was injected into the bile duct and a cholangiogram obtained. A balloon occlusion cholangiogram was performed. Using a stone extraction balloon the bile duct was swept several times. Multiple stone fragments were removed from the bile duct successfully. Using a stone extraction balloon the bile duct was swept several times. Multiple stones were removed from the bile duct successfully. Under endoscopic and fluoroscopic guidance a 10 Fr x 12 cm [facility] Sof-Flex stent was placed in the bile duct. ADVERSE EVENT: There were no complications. IMPRESSIONS: 1. GJ tube in place 2. A previously placed ampulla stent was seen via flouroscopy and appeared migrated in. 3. Multiple filling defects seen with the stent and distally. 4. Ductal sweep done with 8 mm balloon, large amount of soft stones and debris removed. 5. Plastic biliary stent placed 10f 10CM to keep the lumen patent and open. RECOMMENDATIONS: 1. Liver enzymes 2. Stent change with metallic one to cover the distal part of the CBD REPEAT EXAM: As needed Return within 3 months for ERCP and metalic stent placement Jelly Lino MD eSigned: Jelly Lino MD 05/23/2018 10:21 AM cc: PATIENT NAME: Park Larsen MR#: [id number]
[2018-05-23] MEDS: Morphine Sulfate Inj 2 MG/ML Vial ONE ×4 (10:38→11:25)
[2018-05-23] MEDS: DRONABINOL 2.5 MG CAPSULE PO SCH ×2 (11:34→18:04)
--- NOTE | 2018-05-23 11:59 | FL ---
EXAM DATE: 05/23/2018 11:43 AM EDT AGE/SEX: 82 years / Female INDICATIONS: Stones, stent placement. CLINICAL DATA: This is the patient's initial encounter. Patient reports that signs and symptoms have been present for 1 day and indicates a pain score of Nonresponsive. MEDICAL/SURGICAL HISTORY: Non-responsive. Non-responsive. COMPARISON: No prior exams available for comparison. FINDINGS: An ERCP was performed by the ordering physician. The images demonstrate contrast in the common bile duct. The proximal duct appears to be dilated. There is an expandable stent currently in place within the common bile duct. At the end of the procedure an internal biliary stent was placed inside the ex pandable common bile duct stent. CONCLUSION: Status post placement of an internal biliary stent. Electronically signed by: Vinicio Diggs MD 05/23/2018 11:57 AM EDT
[2018-05-23 14:22] LABS: Anti-Nuclear Antibody Screen Pos (Neg)
--- NOTE | 2018-05-23 15:00 | P.PNNP ---
Subjective Interval history: Resting. Complaining of abdominal discomfort. S/P ERCP. Creatinine at 3.08 today. <Shreya Tejeda - Last Filed: 05/23/18 14:56> Physical Exam Vital signs: Vital Signs 05/22/18 21:00 05/23/18 10:30 Temperature 97.7 F Pulse Rate 61 Respiratory Rate 16 20 Blood Pressure 154/73 H Pulse Oximetry 100 Intake & Output 05/22/18 05/23/18 05/23/18 18:59 06:59 18:59 Intake Total 1050 / 1050 1000 / 1000 400 / 400 Balance 1050 / 1050 1000 / 1000 400 / 400 Intake: IV 1050 / 1050 1000 / 1000 400 / 400 Potassium Chlor 20 mEq/NACL 0. 1000 / 1000 45% Inj 1,000 ML @ 84 mls/hr IV .CONT .[id number] HITESH Rx#:[id number] NS + KCl 20 mEq Inj 1,000 ML @ 1000 / 1000 84 mls/hr IV.CONT .[id number] HITESH Rx#:[id number] LR 1000 mL Inj 1,000 ML @ 30 400 / 400 mls/hr IV.SIG .Q24H HITESH Rx#: [id number] Flagyl 250 mg Inj 50 ML @ 100 50 / 50 mls/hr IV.SIG Q8H HITESH Rx#: [id number] Other: Date of Last Bowel Movement 05/21/18 05/21/18 - Constitutional no acute distress - Routine HEENT Exam Head: Present: normocephalic ENT: Present: mucous membranes moist - Routine Neck Exam Present: supple. Absent: JVD - Routine Respiratory Exam Present: decreased breath sounds, CTA bilaterally. Absent: rales, rhonchi - Routine Cardiovascular Exam Present: RRR. Absent: murmur - Routine Abdominal Exam Present: soft, normoactive bowel sounds - Routine Extremities Exam Absent: edema - Routine Skin Exam Present: dry, warm - Routine Psychiatric Exam Present: cooperative <Shreya Tejeda - Last Filed: 05/23/18 14:56> Vital signs: Vital Signs 05/23/18 10:30 05/23/18 12:00 05/23/18 16:00 Temperature 97.7 F 97.7 F 98.7 F Pulse Rate 61 75 72 Respiratory Rate 20 16 18 Blood Pressure 154/73 H 151/77 H 138/60 Pulse Oximetry 100 100 98 05/23/18 20:00 Temperature 99.0 F Pulse Rate 78 Respiratory Rate 18 Blood Pressure 123/60 Pulse Oximetry 97 Intake & Output 05/23/18 05/23/18 05/24/18 06:59 18:59 06:59 Intake Total 1000 / 1000 800 / 800 Balance 1000 / 1000 800 / 800 Intake: IV 1000 / 1000 400 / 400 NS + KCl 20 mEq Inj 1,000 ML @ 1000 / 1000 84 mls/hr IV.CONT .[id number] HITESH Rx#:[id number] LR 1000 mL Inj 1,000 ML @ 30 400 / 400 mls/hr IV.SIG .Q24H HITESH Rx#: [id number] Anesthesia Amount 400 / 400 Other: Date of Last Bowel Movement 05/21/18 05/21/18 <Samson Kennedy - Last Filed: 05/23/18 21:19> Assessment and Plan - Assessment (1) Acute on chronic kidney failure Code(s): N17.9 - Acute kidney failure, unspecified; N18.9 - Chronic kidney disease, unspecified Status: Acute Qualifiers: Chronic kidney disease stage: stage 3 (moderate) Plan: The patient has known history of chronic kidney disease, followed by Dr. Melara with a baseline creatinine 2.3-2.7. There is no proteinuria. 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 Creatinine at 3.1 -> 3.1 -> 3 ->3 renal function is stable possibly new baseline HCO3 at 16 Continue to encourage PO intake (although NPO for ERCP tomorrow) Avoid any nephrotoxins. Follow the urine output and the BUN and creatinine. Sodium bicarbonate added BID (2) Anemia Code(s): D64.9 - Anemia, unspecified Status: Chronic Qualifiers: Anemia type: unspecified type Qualified Code(s): D64.9 - Anemia, unspecified Plan: Has received PRBC HGB stable will monitor (3) HTN (hypertension) Code(s): I10 - Essential (primary) hypertension Status: Acute Plan: Well controlled continue metoprolol <Shreya Tejeda - Last Filed: 05/23/18 14:56> - Assessment (1) Acute on chronic kidney failure Code(s): N17.9 - Acute kidney failure, unspecified; N18.9 - Chronic kidney disease, unspecified Status: Acute Qualifiers: Chronic kidney disease stage: stage 3 (moderate) (2) Anemia Code(s): D64.9 - Anemia, unspecified Status: Chronic Qualifiers: Anemia type: unspecified type Qualified Code(s): D64.9 - Anemia, unspecified (3) HTN (hypertension) Code(s): I10 - Essential (primary) hypertension Status: Acute - Attending Attestation Patient seen and examined, agree with above. Creatinine is almost same, nonoliguric. <Samson Kennedy - Last Filed: 05/23/18 21:19>
[2018-05-23 17:55] LABS: Activated Partial Thrombo Time 33.3 sec (24.3-30.1); INR 1.2 Ratio; Prothrombin Time 12.5 sec (9.8-11.6)
[2018-05-23] MEDS: Sodium Bicarbonate 650 MG Tablet PO SCH (22:09)
[2018-05-24] MEDS: MethylPREDNISolone Sod Succinate Inj 40 MG/ML Vial IV.PUSH SCH ×2 (08:03→21:44)
[2018-05-24] MEDS: [UNRECOGNIZED DRUG - REMARK] PO SCH ×3 (08:05→17:44)
[2018-05-24] MEDS: Senna/Docusate Sodium 8.6/50 MG Tablet PO SCH ×2 (08:05→21:43)
[2018-05-24] MEDS: Sodium Bicarbonate 650 MG Tablet PO SCH ×2 (08:05→21:43)
[2018-05-24] MEDS: Metoprolol Tartrate 25 MG Tablet PO SCH ×2 (08:05→21:43)
[2018-05-24] MEDS: rifAXIMin 550 MG Tablet PO SCH ×2 (08:05→21:44)
[2018-05-24] MEDS ORDERED: fentaNYL Citrate Inj 250 MCG/5 ML Ampul ONE (08:51)
--- NOTE | 2018-05-24 10:46 | P.RAD ---
Post Procedure Progress Note - Pre Procedure Diagnosis (1) Abdominal pain - Post Procedure Diagnosis (1) Abdominal pain - Procedure Information Procedure Date: 05/24/18 Supervising Radiologist: Stephan Alegria Jr, MD Estimated blood loss (mL): 0 Anesthesia: Conscious Sedation - Plan of Activity Patient to Unit: ROPU Patient Condition: Good See PACS Report for procedural detail/treatment. Vascular - Arterial Procedure Abdominal Procedure: Angiogram - Additional Information Findings: Mesenteric angiogram shows no stenosis. Vessels widely patent.
--- NOTE | 2018-05-24 10:47 | P.RAD ---
Post Procedure Progress Note - Pre Procedure Diagnosis (1) Abdominal pain (2) Gastroparesis - Post Procedure Diagnosis (1) Abdominal pain (2) Gastroparesis - Procedure Information Procedure Date: 05/24/18 Supervising Radiologist: Stephan Alegria Jr, MD Estimated blood loss (mL): 0 Anesthesia: Conscious Sedation - Plan of Activity Patient to Unit: ROPU Patient Condition: Good See PACS Report for procedural detail/treatment. Feeding Tube Feeding Tube: Gastro/Jejunostomy Procedure: Exchange Romansh Tube Size: 22 Findings: Routine exchange without difficulty.
--- NOTE | 2018-05-24 10:52 | P.DIET ---
Nutritional Evaluation Type of nutrition evaluation: follow-up Nutrition consult regarding: Tube Feeding Subjective Subjective Comments: Pt has night time TF at home. Objective - Diagnosis Abdominal Pain - Objective % IBW: 110 Body Weight Used for Calculations: Actual (65 kg) Energy Needs - Lower Range (kCal/kg): 25 Energy Needs - Upper Range (kCal/kg): 30 Lower Limit kCal/kg (kCals): 1,625 Upper Limit kCal/kg (kCals): 1,950 Lower Limit Protein Factor (Grams per Kg): 1.0 Upper Limit Protein Factor (Grams per Kg): 1.5 Lower Protein Needs (Protein): 65 Upper Protein Needs (Protein): 98 Dietitian Reviewed in Medical Record: Current diet, Curent medications, Intake & Output, Labs, Medical history, Tube feeding Diet Order: clear liquid Objective Comments: Hx includes anxiety, CKD, g-j tube, GERD, idiopathic pancreatitis Feeding - Current Tube Feeding Tube Feeding Product: Jevity 1.5 (Tubefeeding on hold) Tube Feeding Route: jejunostomy Assessment Assessment: Pt is at high nutrition risk 2' to her dependence on supplemental TFing. She is s/p ERCP (05/23) d/t elevated phosphatase and abdominal pain. Current order is for Jevity 1.5 @ 55 mls/hr continuous feed with clear liquid diet. Recommend continue with current TF and diet per GI. RD will monitor diet advance, po intake and adjust TF recs accordingly. Recommendations: Continue Jevity 1.5 @ 55 mls/hr Diet as tolerated Dietitian to Monitor: Lab values, Intake & Output, Diet tolerance, Tube feeding tolerance, Weight change, PO Intake, Diet advancement, Medical course
[2018-05-24] MEDS: DRONABINOL 2.5 MG CAPSULE PO SCH ×2 (11:32→15:08)
[2018-05-24] MEDS ORDERED: Iohexol 350 MG/ML 50 ML Vial (for Rad Diag) G-TUBE ONE (11:46)
--- NOTE | 2018-05-24 13:06 | P.PNIM ---
Subjective Interval history: doing well. in ropu recovery. Physical Exam Vital signs: Vital Signs 05/23/18 16:00 05/23/18 20:00 05/24/18 00:00 Temperature 98.7 F 99.0 F 98.0 F Pulse Rate 72 78 62 Respiratory Rate 18 18 18 Blood Pressure 138/60 123/60 118/62 Pulse Oximetry 98 97 97 05/24/18 04:00 05/24/18 08:00 05/24/18 08:09 Temperature 97.8 F 97.7 F Pulse Rate 64 59 L Respiratory Rate 18 20 18 Blood Pressure 146/66 H 129/60 Pulse Oximetry 100 98 05/24/18 10:50 05/24/18 11:20 05/24/18 11:34 Temperature 97.5 F L 97.5 F L Pulse Rate 61 68 59 L Respiratory Rate 16 18 18 Blood Pressure 158/82 H 163/82 H 158/82 H Pulse Oximetry 94 L 94 L 05/24/18 11:35 05/24/18 11:36 05/24/18 12:05 Temperature Pulse Rate 55 L 58 L 55 L Respiratory Rate 18 58 H 16 Blood Pressure 161/79 H 167/79 H 164/80 H Pulse Oximetry 93 L 95 05/24/18 12:35 Temperature Pulse Rate 56 L Respiratory Rate 18 Blood Pressure 165/79 H Pulse Oximetry 94 L Intake & Output 05/23/18 05/24/18 05/24/18 18:59 06:59 18:59 Intake Total 800 / 800 1360 / 1360 Output Total 200 / 200 Balance 800 / 800 1160 / 1160 Weight 66.5 kg Intake: IV 400 / 400 1000 / 1000 NS + KCl 20 mEq Inj 1,000 ML @ 1000 / 1000 84 mls/hr IV.CONT .[id number] HITESH Rx#:[id number] LR 1000 mL Inj 1,000 ML @ 30 400 / 400 mls/hr IV.SIG .Q24H HITESH Rx#: [id number] Oral 360 / 360 Anesthesia Amount 400 / 400 Output: Urine 200 / 200 Other: Date of Last Bowel Movement 05/21/18 05/23/18 heent neg heart reg lung cta abd s/nt/nabs ext no edema Results - Labs CBC & Chem 7: 05/23/18 08:25 05/23/18 08:25 Laboratory Results - last 24 hr 05/22/18 05/23/18 13:40 17:30 PT 12.5 H INR 1.2 APTT 33.3 H JING Screen Pos H Assessment and Plan - Assessment (1) Abdominal pain Code(s): R10.9 - Unspecified abdominal pain Status: Acute Plan: (1) Idiopathic pancreatitis Code(s): K85.00 - Idiopathic acute pancreatitis without necrosis or infection Status: Chronic Plan: - Ms. Larsen is an 82 y/o AAF with recurrent idiopathic pancreatitis. She has been hospitalized numerous times for issues with pain control related to recurrent pancreatitis. Her last admission was from 03/03/18 to 03/28/18 and she had biliary obstruction at that time. - During that admission she underwent evaluation with ERCP (03/03/18) which noted multiple stones, migrated metal stent up into CBD, could not put plastic stent due to "kink" in current stent according to GI notes. She required PTC placement on 03/04 by IR which noted severe obstruction of the proximal common bile duct stent with very challenging recanalization requiring multiple wires and catheters. biliary stent placement. She had to have a repeat ERCP (03/07/18) and had to have the metal stent cleared of debris and they were able to confirm complete clearance of the stent with good emptying through the stent. She had a percutaneous cholangiogram on 03/09/18 where the external portion of biliary drain was removed and the report showed some small hyperplasia within the distal aspect of the biliary stent but there is a patent channel down to the small bowel. - [place] [facility] [place] with continued abdominal pain that is similar to her previous pancreatitis pain. - Her labs in the ED revealed WBC count 18.2, Cr 4.56/BUN 60, Lipase 350. Her LFTs were mostly WNL with TBili 0.3, AST 17, ALT less than 6, AlkPhos 211. - CT Abd/pelvis w/o IV contrast in the ED which noted stable and grossly unremarkable follow-up CT scan of the abdomen and pelvis compared to the prior study on 04/24/18, stable tiny 2 mm nonobstructing stone right kidney, and stable 1.4 cm right renal cyst. - comgmt with GI - Case d/w GI, Dr. Schwartz (05/18/18) - HIDA scan 05/19 reviewed and reveals: Negative examination. Normal biliary kinetics; no evidence of obstruction. - - Pt's last celiac plexus block performed by Dr. Rivera (05/13/17). Pt needs to f/ u with Dr. Rivera outpt to see if pt might benefit from repeat of the procedure - Change Jevity 1.5 to continuous feedings at 55ml/hour with free water flush 200ml q8 hours - Request consult from Dietary, RE: tube feeding optimization - Pain control PRN with [place] and Morphine PRN - zofran as need for N/V - Monitor labs - Supportive care - DVT prophylaxis with SCDs -s/p ercp 05/23 with balloon sweep of stone fragments/debris from metal stent and placement of new stent - GJ tube exchange 710 with IR -mesenteric angio with IR 05/24. prelim report no high grade obstructions resume tube feeding and titrate resume liquid diet and advance as tolerated hopefully home in 1-2 days. (2) Acute on chronic kidney failure Code(s): N17.9 - Acute kidney failure, unspecified; N18.9 - Chronic kidney disease, unspecified Status: Acute Plan: - Pt with baseline stage 3 CKD, pt follows with Dr. Melara - Her labs at admission with a noted acute worsening of her baseline CKD. - Labs on 04/24 noted Cr is 3.51/BUN 38. Repeat labs on 04/30 with Cr 3.72/BUN 35 , GFR 14. - Labs at admission noted Cr 4.56/BUN 60 - Await consult from Nephrology - Repeat labs - Cr 4.08/BUN 51 (05/17) - Cr 3.74/BUN 46 (05/18) - Cr 3.44/BUN 43 (05/19) - cr 3.17/BUN 40 (05/20) - ivf - Avoid nephrotoxic agents (3) HTN (hypertension) Code(s): I10 - Essential (primary) hypertension Status: Acute Plan: - Cont. home meds - Monitor (4) GERD (gastroesophageal reflux disease) Code(s): K21.9 - Gastro-esophageal reflux disease without esophagitis Status: Acute Plan: - PPI (5) Anemia Code(s): D64.9 - Anemia, unspecified Status: Chronic Plan: - Pt with an acute decrease in her chronic anemia on 05/17 with Hgb down to 7.6 - > 11.3 (05/18) - No noted active bleeding - s/p Transfuse 2 units PRBCs with Lasix 20mg IV in between the two units
--- NOTE | 2018-05-24 13:06 | IR ---
EXAM DATE: 05/24/2018 11:44 AM EDT AGE/SEX: 82 years / Female INDICATIONS: Patient presents with abdominal pain in need of mesenteric angiogram for evaluation of possible stenosis. Chronic abdominal pain. Chronic renal disease. Mesenteric Doppler study concerning for possible stenosis. CLINICAL DATA: This is the patient's initial encounter. Patient reports that signs and symptoms have been present for 1 week and indicates a pain score of 7/10. MEDICAL/SURGICAL HISTORY: Gastroesophageal reflux disease. Hypertension. Chronic kidney diseas e. Idiopathic pancreatitis. HLD. Gastroparesis. A-Fib. Cholecystectomy. Total knee replacement, lef t. ERCP. Biliary stent. Celiac plexus block. [place] [facility] [place]/O CONTRAST, 05/22/2018. . FLUORO TIME (min): 3.5 IMAGE SERIES: 14 ACCESS SITE: Right femoral artery SEDATION TIME (min): 80 CONTRAST (cc): 15 Visipaque (iodixanol) MEDICATION(S): 5mg midazolam (Versed) IV 250mcg fentanyl (Sublimaze) IV DEVICE(S): . . PROCEDURE : 1. Ultrasound-guided puncture of the access site. 2. Conscious sedation with continuous EKG and Oximetry monitoring. 3. Angiography of the abdominal aorta 4. Angiography of the superior mesenteric artery The risks, benefits and alternatives to the procedure were explained and verbal and written consent w as obtained. The site was prepped in sterile fashion. Full sterile technique was used, including ca p, mask, sterile gloves and gown and a large sterile sheet. Hand hygiene and 2% chlorhexidine and/or betadine/alcohol prep was utilized per protocol for cutaneous antisepsis. Sterile gel and sterile p robe cover were utilized for ultrasound guidance. The skin and subcutaneous tissues were infiltrated with local anesthetic solution. With ultrasound and fluoroscopic guidance the right common femoral artery was punctured and a vascula r sheath was placed. CO2 was utilized for the majority of this exam. A small volume of iodinated contrast was utilized for 1 angiographic run. This was utilized to better visualize the more peripheral branches. An Omni Flus h catheter was passed into the abdominal aorta and an abdominal aortogram utilizing CO2 contrast was performed in both the frontal and lateral projections. The aorta is normal in caliber. No stenosis. C eliac and SMA origins are widely patent. The SMA was selected and SMA angiogram performed utilizing C O2 contrast. This shows patency to the proximal SMA. Peripheral branches are poorly seen. A solitary SMA angiogram was performed utilizing iodinated contrast which shows a widely patent SMA. The puncture site was closed with manual pressure and hemostasis was obtained. The patient tolerated the procedure well and there were no complications. Conscious sedation was performed with the prescribed dosages and duration as above in the presence of an independent trained radiology nurse to assist in the monitoring of the patient. EKG and oximetry remained stable throughout the procedure. CONCLUSION: 1. Widely patent celiac and SMA. No angiographic evidence to suggest mesenteric ischemia. Electronically signed by: Stephan Alegria MD 05/24/2018 1:05 PM EDT
--- NOTE | 2018-05-24 14:10 | IR ---
EXAM DATE: 05/24/2018 11:45 AM EDT AGE/SEX: 82 years / Female INDICATIONS: Patient with history of chronic pancreatitis in need of transgastric tube replacement. Routine exchange. CLINICAL DATA: This is the patient's initial encounter. Patient reports that signs and symptoms have been present for 1 day and indicates a pain score of 7/10. MEDICAL/SURGICAL HISTORY: Gastroesophageal reflux disease. Hypertension. Chronic pancreatitis. HLD. Gastroparesis. CKD. Cholecystectomy. Total knee replacement, left. ERCP. Biliary stent. Natasha c plexus block. COMPARISON: No prior exams available for comparison. FLUORO TIME (min): 1.6 IMAGE SERIES: SEDATION TIME (min): 80 CONTRAST (cc): 20 Omnipaque (iohexol) 350 MEDICATION(S): 5mg midazolam (Versed) IV 250mcg fentanyl (Sublimaze) IV DEVICE(S): 22 [place] Transgastric tube . . PROCEDURE: 1. Fluoroscopically guided gastrojejunostomy tube exchange. 2. Conscious sedation with continuous EKG and oximetry monitoring. The risks, benefits and alternatives to the procedure were explained and verbal and written consent w as obtained. The site was prepped in sterile fashion. Full sterile technique was used, including ca p, mask, sterile gloves and gown and a large sterile sheet. Hand hygiene and 2% chlorhexidine and/or betadine/alcohol prep was utilized per protocol for cutaneous antisepsis. The skin and subcutaneous tissues were infiltrated with local anesthetic solution. With fluoroscopic guidance a guidewire was passed through the previous gastrojejunostomy tube and a f resh tube was placed over the guidewire. The balloon was inflated with appropriate volume of saline. Injection of positive contrast demonstrates good position of the gastric and jejunal lumens of the tube. Conscious sedation was performed with the prescribed dosages and duration as above in the presence of an independent trained radiology nurse to assist in the monitoring of the patient. EKG and oximetry remained stable throughout the procedure. The patient tolerated the procedure well and there were n o complications. The patient was sent to post anesthesia recovery in stable condition. CONCLUSION: 1. Uncomplicated gastrojejunostomy tube exchange as above. Electronically signed by: Stephan Alegria MD 05/24/2018 2:09 PM EDT
[2018-05-24 15:41] LABS: Baso # (Auto) 0.1 th/mm3 (0.0-0.2); Baso % (Auto) 0.3 % (0.0-2.0); Hematocrit 35.7 % (35.0-46.0); Hemoglobin 11.3 gm/dL (11.6-15.3); Lymph # (Auto) 0.7 th/mm3 (1.0-4.8); Lymph % (Auto) 3.2 % (9.0-44.0); Mean Corpuscular HGB Conc 31.7 % (32.0-36.0); Mean Corpuscular Hemoglobin 27.4 pg (27.0-34.0); Mean Corpuscular Volume 86.5 fL (80.0-100.0); Mean Platelet Volume 8.1 fL (7.0-11.0); Mono # (Auto) 0.2 th/mm3 (0.0-0.9); Mono % (Auto) 0.9 % (0.0-8.0); Neut # (Auto) 20.2 th/mm3 (1.8-7.7); Neut % (Auto) 95.6 % (16.0-70.0); Platelet Count 459 th/mm3 (150-450); Red Blood Count 4.13 mil/mm3 (4.00-5.30); Red Cell Distribution Width 17.3 % (11.6-17.2); White Blood Count 21.1 th/mm3 (4.0-11.0)
[2018-05-24 15:51] LABS: Alanine Aminotransferase 17 U/L (10-53); Albumin 1.6 g/dL (3.4-5.0); Anion Gap 13 meq/L (5-15); Aspartate Aminotransferase 13 U/L (15-37); Blood Urea Nitrogen 51 mg/dL (7-18); Calcium 8.2 mg/dL (8.5-10.1); Carbon Dioxide 16.5 meq/L (21.0-32.0); Chloride 112 meq/L (98-107); Glomerular Filtration Rate 18 mL/min (>89); Glucose,Random 145 mg/dL (74-106); Lipase 114 U/L (73-393); Potassium 5.3 meq/L (3.5-5.1); Sodium 141 meq/L (136-145)
[2018-05-24 15:57] LABS: Alkaline Phosphatase 353 U/L (45-117)
[2018-05-24 16:59] LABS: Lymphocytes 3 % (9-44); Monocytes 1 % (0-8)
[2018-05-24 17:01] LABS: Platelet Morphology Normal (Normal); Toxic Granulation 1+
--- NOTE | 2018-05-24 18:11 | P.PNGI ---
Subjective Interval history: Patient has her eyes open and for the first time in quite a while she denies any abdominal pain Abdomen is round soft no current nausea or vomiting, but patient is still taking pain management Current hemoglobin 11.3 no obvious bleeding <Jordana Sebastian - Last Filed: 05/24/18 18:07> Physical Exam Vital signs: Vital Signs 05/23/18 20:00 05/24/18 00:00 05/24/18 04:00 Temperature 99.0 F 98.0 F 97.8 F Pulse Rate 78 62 64 Respiratory Rate 18 18 18 Blood Pressure 123/60 118/62 146/66 H Pulse Oximetry 97 97 100 05/24/18 08:00 05/24/18 08:09 05/24/18 10:50 Temperature 97.7 F 97.5 F L Pulse Rate 59 L 61 Respiratory Rate 20 18 16 Blood Pressure 129/60 158/82 H Pulse Oximetry 98 94 L 05/24/18 11:20 05/24/18 11:34 05/24/18 11:35 Temperature 97.5 F L Pulse Rate 68 59 L 55 L Respiratory Rate 18 18 18 Blood Pressure 163/82 H 158/82 H 161/79 H Pulse Oximetry 94 L 93 L 05/24/18 11:36 05/24/18 12:05 05/24/18 12:35 Temperature Pulse Rate 58 L 55 L 56 L Respiratory Rate 58 H 16 18 Blood Pressure 167/79 H 164/80 H 165/79 H Pulse Oximetry 95 94 L 05/24/18 16:00 Temperature 98.6 F Pulse Rate 77 Respiratory Rate 20 Blood Pressure 136/63 Pulse Oximetry 99 Intake & Output 05/23/18 05/24/18 05/24/18 18:59 06:59 18:59 Intake Total 800 / 800 1360 / 1360 1000 / 1000 Output Total 200 / 200 Balance 800 / 800 1160 / 1160 1000 / 1000 Weight 66.5 kg Intake: IV 400 / 400 1000 / 1000 1000 / 1000 NS + KCl 20 mEq Inj 1,000 ML @ 1000 / 1000 1000 / 1000 84 mls/hr IV.CONT .[id number] [facility] Rx#:[id number] LR 1000 mL Inj 1,000 ML @ 30 400 / 400 mls/hr IV.SIG .Q24H [facility] Rx#: [id number] Oral 360 / 360 Anesthesia Amount 400 / 400 Output: Urine 200 / 200 Other: Date of Last Bowel Movement 05/21/18 05/23/18 - Constitutional no acute distress - Routine HEENT Exam Head: Present: normocephalic, atraumatic ENT: Present: mucous membranes dry (Frail) - Routine Neck Exam Present: supple - Routine Abdominal Exam Present: soft (Round, no complaints of abdominal pain) - Routine Skin Exam Present: intact - Routine Neurological Exam Present: alert (Awake answer simple questions) <Jordana Sebastian - Last Filed: 05/24/18 18:07> Vital signs: Vital Signs 05/24/18 08:00 05/24/18 08:09 05/24/18 10:50 Temperature 97.7 F 97.5 F L Pulse Rate 59 L 61 Respiratory Rate 20 18 16 Blood Pressure 129/60 158/82 H Pulse Oximetry 98 94 L 05/24/18 11:20 05/24/18 11:34 05/24/18 11:35 Temperature 97.5 F L Pulse Rate 68 59 L 55 L Respiratory Rate 18 18 18 Blood Pressure 163/82 H 158/82 H 161/79 H Pulse Oximetry 94 L 93 L 05/24/18 11:36 05/24/18 12:05 05/24/18 12:35 Temperature Pulse Rate 58 L 55 L 56 L Respiratory Rate 58 H 16 18 Blood Pressure 167/79 H 164/80 H 165/79 H Pulse Oximetry 95 94 L 05/24/18 16:00 05/24/18 20:00 05/24/18 23:43 Temperature 98.6 F 97.4 F L Pulse Rate 77 69 Respiratory Rate 20 18 18 Blood Pressure 136/63 Pulse Oximetry 99 05/25/18 00:00 05/25/18 01:58 05/25/18 04:28 Temperature 97.8 F Pulse Rate 72 Respiratory Rate 18 18 16 Blood Pressure 165/86 H Pulse Oximetry 99 Intake & Output 05/24/18 05/24/18 05/25/18 06:59 18:59 06:59 Intake Total 1360 / 1360 1000 / 1000 1000 / 1000 Output Total 200 / 200 Balance 1160 / 1160 1000 / 1000 1000 / 1000 Weight 66.5 kg Intake: IV 1000 / 1000 1000 / 1000 1000 / 1000 NS + KCl 20 mEq Inj 1,000 ML @ 1000 / 1000 1000 / 1000 1000 / 1000 84 mls/hr IV.CONT .[id number] [facility] Rx#:[id number] Oral 360 / 360 Output: Urine 200 / 200 Other: Date of Last Bowel Movement 05/23/18 05/24/18 <Jelly Lino - Last Filed: 05/25/18 06:46> Results - Labs CBC & Chem 7: 05/24/18 14:15 05/24/18 14:15 Laboratory Results - last 24 hr 05/22/18 05/24/18 05/24/18 13:40 14:15 14:15 WBC 21.1 H RBC 4.13 Hgb 11.3 L Hct 35.7 MCV 86.5 MCH 27.4 MCHC 31.7 L RDW 17.3 H Plt Count 459 H MPV 8.1 Prelim Diff (Auto) Slide review pending Neut % (Auto) 95.6 H Lymph % (Auto) 3.2 L [place] % (Auto) 0.9 Eos % (Auto) 0.0 Baso % (Auto) 0.3 Neut # (Auto) 20.2 H Lymph # (Auto) 0.7 L [place] # (Auto) 0.2 Eos # (Auto) 0.0 Baso # (Auto) 0.1 WBC Differential Manual diff final Seg Neuts % (Manual) 95 H Band Neuts % (Manual) 1 Lymphocytes % (Manual) 3 L Monocytes % (Manual) 1 Abs Neuts (Manual) 20.3 H Differential Comment . Toxic Granulation 1+ H Platelet Estimate High H Platelet Morphology Normal Sodium 141 Potassium 5.3 H Chloride 112 H Carbon Dioxide 16.5 L Anion Gap 13 BUN 51 H Creatinine 3.05 H Estimated GFR 18 L Random Glucose 145 H Calcium 8.2 L Total Bilirubin 0.2 AST 13 L ALT 17 Alkaline Phosphatase 353 H Total Protein 6.0 L Albumin 1.6 L Lipase 114 Anti-Smooth Muscle Ab Negative - Imaging Impressions Mesenteric Arteriogram 05/24/18 00:00 CONCLUSION: 1. Widely patent celiac and SMA. No angiographic evidence to suggest mesenteric ischemia. Tube Change 05/24/18 00:00 CONCLUSION: 1. Uncomplicated gastrojejunostomy tube exchange as above. <Jordana Sebastian - Last Filed: 05/24/18 18:07> - Labs CBC & Chem 7: 05/24/18 14:15 05/24/18 14:15 Laboratory Results - last 24 hr 05/22/18 05/24/18 05/24/18 13:40 14:15 14:15 WBC 21.1 H RBC 4.13 Hgb 11.3 L Hct 35.7 MCV 86.5 MCH 27.4 MCHC 31.7 L RDW 17.3 H Plt Count 459 H MPV 8.1 Prelim Diff (Auto) Slide review pending Neut % (Auto) 95.6 H Lymph % (Auto) 3.2 L [place] % (Auto) 0.9 Eos % (Auto) 0.0 Baso % (Auto) 0.3 Neut # (Auto) 20.2 H Lymph # (Auto) 0.7 L [place] # (Auto) 0.2 Eos # (Auto) 0.0 Baso # (Auto) 0.1 WBC Differential Manual diff final Seg Neuts % (Manual) 95 H Band Neuts % (Manual) 1 Lymphocytes % (Manual) 3 L Monocytes % (Manual) 1 Abs Neuts (Manual) 20.3 H Differential Comment . Toxic Granulation 1+ H Platelet Estimate High H Platelet Morphology Normal Sodium 141 Potassium 5.3 H Chloride 112 H Carbon Dioxide 16.5 L Anion Gap 13 BUN 51 H Creatinine 3.05 H Estimated GFR 18 L Random Glucose 145 H Calcium 8.2 L Total Bilirubin 0.2 AST 13 L ALT 17 Alkaline Phosphatase 353 H Total Protein 6.0 L Albumin 1.6 L Lipase 114 Anti-Smooth Muscle Ab Negative - Imaging Impressions Mesenteric Arteriogram 05/24/18 00:00 CONCLUSION: 1. Widely patent celiac and SMA. No angiographic evidence to suggest mesenteric ischemia. Tube Change 05/24/18 00:00 CONCLUSION: 1. Uncomplicated gastrojejunostomy tube exchange as above. <Jelly Lino A - Last Filed: 05/25/18 06:46> Assessment and Plan (1) Gastroparesis Status: Acute Code(s): K31.84 - Gastroparesis (2) Idiopathic pancreatitis Status: Chronic Code(s): K85.00 - Idiopathic acute pancreatitis without necrosis or infection (3) Abdominal pain Status: Acute Code(s): R10.9 - Unspecified abdominal pain (4) History of biliary stent insertion Status: Acute Code(s): Z98.890 - Other specified postprocedural states (5) Elevated LFTs Status: Acute Code(s): R94.5 - Abnormal results of liver function studies - Plan Assessment: - Recurrent idiopathic pancreatitis- No signs of biliary obstruction from labs. Will order HIDA for evaluation Complaining of upper abdominal pain, located across entire upper abdomen, pain is constant, described as sharp. Worse with PO intake. Associated nausea, denies emesis. Recent hospitalization for same- initial ERCP unable to place stent due to kink in current stent, pt underwent PTC by IR, repeat ERCP done on 03/07 with successful metallic biliary stent placement and pt later had external biliary drain removed. Follow up in office in April with continued abdominal pain, noted to be seen in ER twice prior with same complaints, CT abdomen was negative. Pt was scheduled for repeat ERCP with stent exchange which she has not had done yet CT abdomen and pelvis WO IV contrast (05/16) Stable and grossly unremarkable follow-up CT scan compare to prior study. Stable tiny 2 mm nonobstructing stone right kidney. Stable 1.4 cm right renal cyst. 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 Pt currently NPO. 05/20/2018 patient is status post HIDA scan. Results show no focal deficits seen in the hepatic kinetics normal flow rate. Activity seen in the biliary system and 25 minutes normal excretion into the small bowel patient is status post colon cystectomy post CCK prompt visualization of activity in the duodenum no evidence of biliary obstruction. Patient continues to complain of some upper abdominal dull ache. Current treatment for recurrent idiopathic pancreatitis and supportive care. Since HIDA scan is negative for instructions okay to discharge from a GI standpoint and we will follow as outpatient. ERCP with stent change as an outpatient. Celiac plexus pain management as an outpatient, current hemoglobin stable at 11.3, WBC count 15.5 unspecified. 05/21/2018. Patient continues to complain of abdominal pain and require pain management with questionable effectiveness. She is weakened, Discussion between hospitalist and Dr. Schwartz for plan of care. Ultrasound of mesenteric vessels ordered today to rule out mesenteric ischemia, with possible ERCP Wednesday. Labs IgG, sed rate, discharge planning for possible tertiary center. There is no family present 05/24/2018 patient is awake eyes open and currently complains of no abdominal pain today. Mesenteric arteriogram shows widely patent vessels with no ischemia. Planned stent change as outpatient and celiac plexus pain management as outpatient. Plan: Diet, continue feedings per J-tube Anti-medics, Creon Monitor labs Pain management per attending Bowel regimen Supportive care Pt has been seen per myself and Dr. Lino, this note was written on her behalf <Jordana Sebastian - Last Filed: 05/24/18 18:07> (1) Gastroparesis Status: Acute Code(s): K31.84 - Gastroparesis (2) Idiopathic pancreatitis Status: Chronic Code(s): K85.00 - Idiopathic acute pancreatitis without necrosis or infection (3) Abdominal pain Status: Acute Code(s): R10.9 - Unspecified abdominal pain (4) History of biliary stent insertion Status: Acute Code(s): Z98.890 - Other specified postprocedural states (5) Elevated LFTs Status: Acute Code(s): R94.5 - Abnormal results of liver function studies - Attending Attestation Asymptomatic and tolerating diet. Nothing to add at this point from GI point of view. Will sign off for now, the patient will need repeat ERCP as out patient within 3 months for stent removal and possible another metalic stent placement. <Jelly Lino - Last Filed: 05/25/18 06:46> <Jelly Lino - Last Filed: 05/25/18 06:46> (2) Idiopathic pancreatitis Qualifiers: Chronicity: chronic Qualified Code(s): K86.1 - Other chronic pancreatitis
--- NOTE | 2018-05-24 21:44 | P.PNNP ---
Subjective Interval history: Patient is clinically same, not in distress. Physical Exam Vital signs: Vital Signs 05/24/18 00:00 05/24/18 04:00 05/24/18 08:00 Temperature 98.0 F 97.8 F 97.7 F Pulse Rate 62 64 59 L Respiratory Rate 18 18 20 Blood Pressure 118/62 146/66 H 129/60 Pulse Oximetry 97 100 98 05/24/18 08:09 05/24/18 10:50 05/24/18 11:20 Temperature 97.5 F L Pulse Rate 61 68 Respiratory Rate 18 16 18 Blood Pressure 158/82 H 163/82 H Pulse Oximetry 94 L 94 L 05/24/18 11:34 05/24/18 11:35 05/24/18 11:36 Temperature 97.5 F L Pulse Rate 59 L 55 L 58 L Respiratory Rate 18 18 58 H Blood Pressure 158/82 H 161/79 H 167/79 H Pulse Oximetry 93 L 05/24/18 12:05 05/24/18 12:35 05/24/18 16:00 Temperature 98.6 F Pulse Rate 55 L 56 L 77 Respiratory Rate 16 18 20 Blood Pressure 164/80 H 165/79 H 136/63 Pulse Oximetry 95 94 L 99 Intake & Output 05/24/18 05/24/18 05/25/18 06:59 18:59 06:59 Intake Total 1360 / 1360 1000 / 1000 Output Total 200 / 200 Balance 1160 / 1160 1000 / 1000 Weight 66.5 kg Intake: IV 1000 / 1000 1000 / 1000 NS + KCl 20 mEq Inj 1,000 ML @ 1000 / 1000 1000 / 1000 84 mls/hr IV.CONT .[id number] [facility] Rx#:[id number] Oral 360 / 360 Output: Urine 200 / 200 Other: Date of Last Bowel Movement 05/23/18 - Constitutional no acute distress - Routine HEENT Exam Head: Present: normocephalic - Routine Neck Exam Present: supple, JVD - Routine Cardiovascular Exam Present: S1, S2 - Routine Abdominal Exam Present: soft, normoactive bowel sounds, tenderness, distended - Routine Neurological Exam Present: alert, oriented X3 - Detailed Neurological Exam: Coma Scale Verbal Response: Oriented Assessment and Plan - Assessment (1) Acute on chronic kidney failure Code(s): N17.9 - Acute kidney failure, unspecified; N18.9 - Chronic kidney disease, unspecified Status: Acute Qualifiers: Chronic kidney disease stage: stage 3 (moderate) Plan: The patient has known history of chronic kidney disease, followed by Dr. Melara with a baseline creatinine 2.3-2.7. There is no proteinuria. 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 Creatinine remain stable renal function is stable possibly new baseline HCO3 at 16 Continue to encourage PO intake (although NPO for ERCP tomorrow) Avoid any nephrotoxins. Follow the urine output and the BUN and creatinine. On Sodium bicarbonate BID (2) Anemia Code(s): D64.9 - Anemia, unspecified Status: Chronic Qualifiers: Anemia type: unspecified type Qualified Code(s): D64.9 - Anemia, unspecified Plan: Has received PRBC HGB stable will monitor (3) HTN (hypertension) Code(s): I10 - Essential (primary) hypertension Status: Acute Plan: Well controlled continue metoprolol
[2018-05-25 08:55] LABS: Baso % (Auto) 0.3 % (0.0-2.0); Hematocrit 32.6 % (35.0-46.0); Hemoglobin 10.3 gm/dL (11.6-15.3); Lymph # (Auto) 0.6 th/mm3 (1.0-4.8); Mean Corpuscular HGB Conc 31.5 % (32.0-36.0); Mean Corpuscular Hemoglobin 27.1 pg (27.0-34.0); Mean Corpuscular Volume 85.8 fL (80.0-100.0); Mono # (Auto) 0.3 th/mm3 (0.0-0.9); Mono % (Auto) 2.3 % (0.0-8.0); Neut # (Auto) 13.9 th/mm3 (1.8-7.7); Neut % (Auto) 93.4 % (16.0-70.0); Platelet Count 394 th/mm3 (150-450); Red Cell Distribution Width 17.1 % (11.6-17.2); White Blood Count 14.9 th/mm3 (4.0-11.0)
[2018-05-25] MEDS: MethylPREDNISolone Sod Succinate Inj 40 MG/ML Vial IV.PUSH SCH ×2 (09:07→21:27)
[2018-05-25] MEDS: Sodium Bicarbonate 650 MG Tablet PO SCH ×2 (09:08→21:22)
[2018-05-25] MEDS: [UNRECOGNIZED DRUG - REMARK] PO SCH ×3 (09:08→21:21)
[2018-05-25] MEDS: Senna/Docusate Sodium 8.6/50 MG Tablet PO SCH ×2 (09:08→21:39)
[2018-05-25] MEDS: Metoprolol Tartrate 25 MG Tablet PO SCH ×2 (09:08→21:21)
[2018-05-25 09:37] LABS: Alanine Aminotransferase 14 U/L (10-53); Albumin 1.5 g/dL (3.4-5.0); Alkaline Phosphatase 318 U/L (45-117); Anion Gap 12 meq/L (5-15); Blood Urea Nitrogen 58 mg/dL (7-18); Calcium 7.9 mg/dL (8.5-10.1); Carbon Dioxide 15.8 meq/L (21.0-32.0); Chloride 113 meq/L (98-107); Glomerular Filtration Rate 18 mL/min (>89); Glucose,Random 155 mg/dL (74-106); Lipase 110 U/L (73-393); Sodium 141 meq/L (136-145); Total Protein 5.6 g/dL (6.4-8.2)
[2018-05-25 09:38] LABS: Aspartate Aminotransferase 13 U/L (15-37); Potassium 6.3 meq/L (3.5-5.1)
--- NOTE | 2018-05-25 10:36 | P.PNIM ---
Subjective Interval history: had upset stomach and diarrhea this AM Physical Exam Vital signs: Vital Signs 05/24/18 10:50 05/24/18 11:20 05/24/18 11:34 Temperature 97.5 F L 97.5 F L Pulse Rate 61 68 59 L Respiratory Rate 16 18 18 Blood Pressure 158/82 H 163/82 H 158/82 H Pulse Oximetry 94 L 94 L 05/24/18 11:35 05/24/18 11:36 05/24/18 12:05 Temperature Pulse Rate 55 L 58 L 55 L Respiratory Rate 18 58 H 16 Blood Pressure 161/79 H 167/79 H 164/80 H Pulse Oximetry 93 L 95 05/24/18 12:35 05/24/18 16:00 05/24/18 20:00 Temperature 98.6 F 97.4 F L Pulse Rate 56 L 77 69 Respiratory Rate 18 20 18 Blood Pressure 165/79 H 136/63 Pulse Oximetry 94 L 99 05/24/18 23:43 05/25/18 00:00 05/25/18 01:58 Temperature 97.8 F Pulse Rate 72 Respiratory Rate 18 18 18 Blood Pressure 165/86 H Pulse Oximetry 99 05/25/18 04:00 05/25/18 04:28 05/25/18 08:00 Temperature 97.2 F L 98.1 F Pulse Rate 64 69 Respiratory Rate 16 20 Blood Pressure 167/90 H 156/76 H Pulse Oximetry 100 99 Intake & Output 05/24/18 05/25/18 05/25/18 18:59 06:59 18:59 Intake Total 1000 / 1000 1454 / 1454 Balance 1000 / 1000 1454 / 1454 Weight 66.3 kg Intake: IV 1000 / 1000 1000 / 1000 NS + KCl 20 mEq Inj 1,000 ML @ 1000 / 1000 1000 / 1000 84 mls/hr IV.CONT .[id number] [facility] Rx#:[id number] Tube Feeding 454 / 454 Other: # Voids 3 Date of Last Bowel Movement 05/23/18 05/24/18 05/24/18 on bedside commode nad abd s/nt/nd/nabs Results - Labs CBC & Chem 7: 05/25/18 08:10 05/25/18 08:10 Laboratory Results - last 24 hr 05/22/18 05/24/18 05/24/18 13:40 14:15 14:15 WBC 21.1 H RBC 4.13 Hgb 11.3 L Hct 35.7 MCV 86.5 MCH 27.4 MCHC 31.7 L RDW 17.3 H Plt Count 459 H MPV 8.1 Prelim Diff (Auto) Slide review pending Neut % (Auto) 95.6 H Lymph % (Auto) 3.2 L [place] % (Auto) 0.9 Eos % (Auto) 0.0 Baso % (Auto) 0.3 Neut # (Auto) 20.2 H Lymph # (Auto) 0.7 L [place] # (Auto) 0.2 Eos # (Auto) 0.0 Baso # (Auto) 0.1 WBC Differential Manual diff final Seg Neuts % (Manual) 95 H Band Neuts % (Manual) 1 Lymphocytes % (Manual) 3 L Monocytes % (Manual) 1 Abs Neuts (Manual) 20.3 H Differential Comment . Toxic Granulation 1+ H Platelet Estimate High H Platelet Morphology Normal Sodium 141 Potassium 5.3 H Chloride 112 H Carbon Dioxide 16.5 L Anion Gap 13 BUN 51 H Creatinine 3.05 H Estimated GFR 18 L Random Glucose 145 H Calcium 8.2 L Total Bilirubin 0.2 AST 13 L ALT 17 Alkaline Phosphatase 353 H Total Protein 6.0 L Albumin 1.6 L Lipase 114 Anti-Smooth Muscle Ab Negative 05/25/18 05/25/18 08:10 08:10 WBC 14.9 H RBC 3.80 L Hgb 10.3 L Hct 32.6 L MCV 85.8 MCH 27.1 MCHC 31.5 L RDW 17.1 Plt Count 394 MPV 8.0 Prelim Diff (Auto) Slide review pending Neut % (Auto) 93.4 H Lymph % (Auto) 4.0 L [place] % (Auto) 2.3 Eos % (Auto) 0.0 Baso % (Auto) 0.3 Neut # (Auto) 13.9 H Lymph # (Auto) 0.6 L [place] # (Auto) 0.3 Eos # (Auto) 0.0 Baso # (Auto) 0.0 WBC Differential Seg Neuts % (Manual) Band Neuts % (Manual) Lymphocytes % (Manual) Monocytes % (Manual) Abs Neuts (Manual) Differential Comment . Toxic Granulation Platelet Estimate Platelet Morphology Sodium 141 Potassium 6.3 H D Chloride 113 H Carbon Dioxide 15.8 L Anion Gap 12 BUN 58 H Creatinine 3.02 H Estimated GFR 18 L Random Glucose 155 H Calcium 7.9 L Total Bilirubin 0.1 L AST 13 L ALT 14 Alkaline Phosphatase 318 H Total Protein 5.6 L Albumin 1.5 L Lipase 110 Anti-Smooth Muscle Ab - Imaging Impressions Mesenteric Arteriogram 05/24/18 00:00 CONCLUSION: 1. Widely patent celiac and SMA. No angiographic evidence to suggest mesenteric ischemia. Tube Change 05/24/18 00:00 CONCLUSION: 1. Uncomplicated gastrojejunostomy tube exchange as above. Assessment and Plan - Assessment (1) Abdominal pain Code(s): R10.9 - Unspecified abdominal pain Status: Acute Plan: (1) Idiopathic pancreatitis Code(s): K85.00 - Idiopathic acute pancreatitis without necrosis or infection Status: Chronic Plan: - Ms. Larsen is an 82 y/o AAF with recurrent idiopathic pancreatitis. She has been hospitalized numerous times for issues with pain control related to recurrent pancreatitis. Her last admission was from 03/03/18 to 03/28/18 and she had biliary obstruction at that time. - During that admission she underwent evaluation with ERCP (03/03/18) which noted multiple stones, migrated metal stent up into CBD, could not put plastic stent due to "kink" in current stent according to GI notes. She required PTC placement on 03/04 by IR which noted severe obstruction of the proximal common bile duct stent with very challenging recanalization requiring multiple wires and catheters. biliary stent placement. She had to have a repeat ERCP (03/07/18) and had to have the metal stent cleared of debris and they were able to confirm complete clearance of the stent with good emptying through the stent. She had a percutaneous cholangiogram on 03/09/18 where the external portion of biliary drain was removed and the report showed some small hyperplasia within the distal aspect of the biliary stent but there is a patent channel down to the small bowel. - Pt presented back to the ED at [facility] on 05/16/18 with continued abdominal pain that is similar to her previous pancreatitis pain. - Her labs in the ED revealed WBC count 18.2, Cr 4.56/BUN 60, Lipase 350. Her LFTs were mostly WNL with TBili 0.3, AST 17, ALT less than 6, AlkPhos 211. - CT Abd/pelvis w/o IV contrast in the ED which noted stable and grossly unremarkable follow-up CT scan of the abdomen and pelvis compared to the prior study on 04/24/18, stable tiny 2 mm nonobstructing stone right kidney, and stable 1.4 cm right renal cyst. - comgmt with GI - Case d/w GI, Dr. Schwartz (05/18/18) - HIDA scan 05/19 reviewed and reveals: Negative examination. Normal biliary kinetics; no evidence of obstruction. - - Pt's last celiac plexus block performed by Dr. Rivera (05/13/17). Pt needs to f/ u with Dr. Rivera outpt to see if pt might benefit from repeat of the procedure - Change Jevity 1.5 to continuous feedings at 55ml/hour with free water flush 200ml q8 hours - Request consult from Dietary, RE: tube feeding optimization - Pain control PRN with [place] and Morphine PRN - zofran as need for N/V - Monitor labs - Supportive care - DVT prophylaxis with SCDs -s/p ercp 05/23 with balloon sweep of stone fragments/debris from metal stent and placement of new stent - GJ tube exchange 710 with IR -mesenteric angio with IR 05/24. prelim report no high grade obstructions resume tube feeding and titrate as tolerated. n/v/d this AM...lower rate. dc ivf with kcl and recheck bmp resume liquid diet and advance as tolerated hopefully home in 1-2 days. (2) Acute on chronic kidney failure Code(s): N17.9 - Acute kidney failure, unspecified; N18.9 - Chronic kidney disease, unspecified Status: Acute Plan: - Pt with baseline stage 3 CKD, pt follows with Dr. Melara - Her labs at admission with a noted acute worsening of her baseline CKD. - Labs on 04/24 noted Cr is 3.51/BUN 38. Repeat labs on 04/30 with Cr 3.72/BUN 35 , GFR 14. - Labs at admission noted Cr 4.56/BUN 60 - Await consult from Nephrology - Repeat labs - Cr 4.08/BUN 51 (7/3) - Cr 3.74/BUN 46 (7/4) - Cr 3.44/BUN 43 (7/5) - cr 3.17/BUN 40 (7/6) - ivf given - Avoid nephrotoxic agents (3) HTN (hypertension) Code(s): I10 - Essential (primary) hypertension Status: Acute Plan: - Cont. home meds - Monitor (4) GERD (gastroesophageal reflux disease) Code(s): K21.9 - Gastro-esophageal reflux disease without esophagitis Status: Acute Plan: - PPI (5) Anemia Code(s): D64.9 - Anemia, unspecified Status: Chronic Plan: - Pt with an acute decrease in her chronic anemia on 05/17 with Hgb down to 7.6 - > 11.3 (05/18) - No noted active bleeding - s/p Transfuse 2 units PRBCs with Lasix 20mg IV in between the two units
[2018-05-25 11:32] LABS: Anti-Nuclear Antibody Pattern Speckled
[2018-05-25] MEDS: Acetaminophen 325 MG Tablet PO PRN (11:53)
[2018-05-25] MEDS: rifAXIMin 550 MG Tablet PO SCH ×2 (11:53→21:22)
[2018-05-25 15:43] LABS: Calcium 8.4 mg/dL (8.5-10.1); Carbon Dioxide 17.6 meq/L (21.0-32.0); Potassium 5.5 meq/L (3.5-5.1)
[2018-05-25 15:52] LABS: Alk Phos Total Isoenzymes 406 U/L (33-130)
--- NOTE | 2018-05-25 16:16 | P.PNNP ---
Subjective Interval history: Seen earlier in day. Patient sitting up, loose stools. Creatinine 2.95, potassium at 5.5 <Shreya Tejeda - Last Filed: 05/25/18 16:00> Physical Exam Vital signs: Vital Signs 05/24/18 20:00 05/24/18 23:43 05/25/18 00:00 Temperature 97.4 F L 97.8 F Pulse Rate 69 72 Respiratory Rate 18 18 18 Blood Pressure 165/86 H Pulse Oximetry 99 05/25/18 01:58 05/25/18 04:00 05/25/18 04:28 Temperature 97.2 F L Pulse Rate 64 Respiratory Rate 18 16 Blood Pressure 167/90 H Pulse Oximetry 100 05/25/18 08:00 05/25/18 12:00 Temperature 98.1 F 97.4 F L Pulse Rate 69 70 Respiratory Rate 20 18 Blood Pressure 156/76 H 153/77 H Pulse Oximetry 99 100 Intake & Output 05/24/18 05/25/18 05/25/18 18:59 06:59 18:59 Intake Total 1000 / 1000 1454 / 1454 Balance 1000 / 1000 1454 / 1454 Weight 66.3 kg Intake: IV 1000 / 1000 1000 / 1000 NS + KCl 20 mEq Inj 1,000 ML @ 1000 / 1000 1000 / 1000 84 mls/hr IV.CONT .[id number] [facility] Rx#:[id number] Tube Feeding 454 / 454 Other: # Voids 3 Date of Last Bowel Movement 05/23/18 05/24/18 05/24/18 - Constitutional no acute distress - Routine HEENT Exam Head: Present: normocephalic ENT: Present: mucous membranes moist - Routine Neck Exam Present: supple. Absent: JVD - Routine Respiratory Exam Present: decreased breath sounds. Absent: rales - Routine Cardiovascular Exam Present: RRR. Absent: murmur - Routine Abdominal Exam Present: soft, normoactive bowel sounds, tenderness - Routine Extremities Exam Present: edema Comments: Mild - Routine Skin Exam Present: dry, warm - Routine Neurological Exam Present: alert - Routine Psychiatric Exam Present: cooperative <Shreya Tejeda - Last Filed: 05/25/18 16:00> Vital signs: Vital Signs 05/24/18 20:00 05/24/18 23:43 05/25/18 00:00 Temperature 97.4 F L 97.8 F Pulse Rate 69 72 Respiratory Rate 18 18 18 Blood Pressure 165/86 H Pulse Oximetry 99 05/25/18 01:58 05/25/18 04:00 05/25/18 04:28 Temperature 97.2 F L Pulse Rate 64 Respiratory Rate 18 16 Blood Pressure 167/90 H Pulse Oximetry 100 05/25/18 08:00 05/25/18 12:00 05/25/18 16:00 Temperature 98.1 F 97.4 F L 97.5 F L Pulse Rate 69 70 72 Respiratory Rate 20 18 18 Blood Pressure 156/76 H 153/77 H 154/69 H Pulse Oximetry 99 100 100 Intake & Output 05/25/18 05/25/18 05/26/18 06:59 18:59 06:59 Intake Total 1454 / 1454 Balance 1454 / 1454 Weight 66.3 kg Intake: IV 1000 / 1000 NS + KCl 20 mEq Inj 1,000 ML @ 1000 / 1000 84 mls/hr IV.CONT .[id number] [facility] Rx#:[id number] Tube Feeding 454 / 454 Other: # Voids 3 Date of Last Bowel Movement 05/24/18 05/24/18 <Tamiko Knenedy Q - Last Filed: 05/25/18 19:17> Assessment and Plan - Assessment (1) Acute on chronic kidney failure Code(s): N17.9 - Acute kidney failure, unspecified; N18.9 - Chronic kidney disease, unspecified Status: Acute Qualifiers: Chronic kidney disease stage: stage 3 (moderate) Plan: The patient has known history of chronic kidney disease, followed by Dr. Melara with a baseline creatinine 2.3-2.7. There is no proteinuria. 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 Creatinine at 2.95 from 3.02 Potassium level at 5.5 HCO3 at 17.6 Continue to encourage PO intake On Sodium bicarbonate BID Avoid any nephrotoxins. With hyperkalemia, IVF have been changed which had added potassium, recheck in AM Follow the urine output and the BUN and creatinine. (2) Anemia Code(s): D64.9 - Anemia, unspecified Status: Chronic Qualifiers: Anemia type: unspecified type Qualified Code(s): D64.9 - Anemia, unspecified Plan: HGB stable will monitor (3) HTN (hypertension) Code(s): I10 - Essential (primary) hypertension Status: Acute Plan: Well controlled continue metoprolol <Shreya Tejeda - Last Filed: 05/25/18 16:00> - Assessment (1) Acute on chronic kidney failure Code(s): N17.9 - Acute kidney failure, unspecified; N18.9 - Chronic kidney disease, unspecified Status: Acute Qualifiers: Chronic kidney disease stage: stage 3 (moderate) (2) Anemia Code(s): D64.9 - Anemia, unspecified Status: Chronic Qualifiers: Anemia type: unspecified type Qualified Code(s): D64.9 - Anemia, unspecified (3) HTN (hypertension) Code(s): I10 - Essential (primary) hypertension Status: Acute - Attending Attestation Patient seen and examined, agree with above. Creatinine almost same, K was elevated and slightly better, now 5.5 <Samson Kennedy - Last Filed: 05/25/18 19:17>
[2018-05-25] MEDS: DRONABINOL 2.5 MG CAPSULE PO SCH ×2 (17:37→17:39)
--- NOTE | 2018-05-25 18:04 | P.PNGI ---
Subjective Interval history: Patient is resting in the bed with her eyes closed states her abdominal pain continues to mildly improve Currently receiving Glucerna feedings 1.5 at 30 cc an hour Hemoglobin 10.3 <Jordana Sebastian - Last Filed: 05/25/18 18:00> Physical Exam Vital signs: Vital Signs 05/24/18 20:00 05/24/18 23:43 05/25/18 00:00 Temperature 97.4 F L 97.8 F Pulse Rate 69 72 Respiratory Rate 18 18 18 Blood Pressure 165/86 H Pulse Oximetry 99 05/25/18 01:58 05/25/18 04:00 05/25/18 04:28 Temperature 97.2 F L Pulse Rate 64 Respiratory Rate 18 16 Blood Pressure 167/90 H Pulse Oximetry 100 05/25/18 08:00 05/25/18 12:00 05/25/18 16:00 Temperature 98.1 F 97.4 F L 97.5 F L Pulse Rate 69 70 72 Respiratory Rate 20 18 18 Blood Pressure 156/76 H 153/77 H 154/69 H Pulse Oximetry 99 100 100 Intake & Output 05/24/18 05/25/18 05/25/18 18:59 06:59 18:59 Intake Total 1000 / 1000 1454 / 1454 Balance 1000 / 1000 1454 / 1454 Weight 66.3 kg Intake: IV 1000 / 1000 1000 / 1000 NS + KCl 20 mEq Inj 1,000 ML @ 1000 / 1000 1000 / 1000 84 mls/hr IV.CONT .[id number] [facility] Rx#:[id number] Tube Feeding 454 / 454 Other: # Voids 3 Date of Last Bowel Movement 05/23/18 05/24/18 05/24/18 - Constitutional no acute distress - Routine HEENT Exam Head: Present: normocephalic, atraumatic (Borderline frail) ENT: Present: mucous membranes dry - Routine Neck Exam Present: supple - Routine Respiratory Exam Present: decreased breath sounds (Unlabored at rest) - Routine Abdominal Exam Present: soft (Round, no guarding), normoactive bowel sounds (Patient receiving Glucerna 1.5 at 30 cc an hour) - Routine Skin Exam Present: intact - Routine Neurological Exam Present: alert (Answer simple questions but drowsy right now) <Jordana Sebastian - Last Filed: 05/25/18 18:00> Vital signs: Vital Signs 05/24/18 23:43 05/25/18 00:00 05/25/18 01:58 Temperature 97.8 F Pulse Rate 72 Respiratory Rate 18 18 18 Blood Pressure 165/86 H Pulse Oximetry 99 05/25/18 04:00 05/25/18 04:28 05/25/18 08:00 Temperature 97.2 F L 98.1 F Pulse Rate 64 69 Respiratory Rate 16 20 Blood Pressure 167/90 H 156/76 H Pulse Oximetry 100 99 05/25/18 12:00 05/25/18 16:00 Temperature 97.4 F L 97.5 F L Pulse Rate 70 72 Respiratory Rate 18 18 Blood Pressure 153/77 H 154/69 H Pulse Oximetry 100 100 Intake & Output 05/25/18 05/25/18 05/26/18 06:59 18:59 06:59 Intake Total 1454 / 1454 Balance 1454 / 1454 Weight 66.3 kg Intake: IV 1000 / 1000 NS + KCl 20 mEq Inj 1,000 ML @ 1000 / 1000 84 mls/hr IV.CONT .[id number] [facility] Rx#:[id number] Tube Feeding 454 / 454 Other: # Voids 3 Date of Last Bowel Movement 05/24/18 05/24/18 <Jelly Lino A - Last Filed: 05/25/18 21:24> Results - Labs CBC & Chem 7: 05/25/18 08:10 05/25/18 15:06 Laboratory Results - last 24 hr 05/22/18 05/22/18 05/22/18 06:25 13:40 13:40 WBC RBC Hgb Hct MCV MCH MCHC RDW Plt Count MPV Prelim Diff (Auto) Neut % (Auto) Lymph % (Auto) [place] % (Auto) Eos % (Auto) Baso % (Auto) Neut # (Auto) Lymph # (Auto) [place] # (Auto) Eos # (Auto) Baso # (Auto) WBC Differential Diff Scan Differential Comment Sodium Potassium Chloride Carbon Dioxide Anion Gap BUN Creatinine Estimated GFR Random Glucose Calcium Total Bilirubin AST ALT Alkaline Phosphatase Total Alk Phosphatase 406 H Total Protein Albumin Lipase Plasma Total Porphyrins Less than 1.0 Pl Tot Porphyr Revd By See below Plasma Porphyrin Intrp . JING Titer 1:80 H JING Pattern Speckled H JING Interpretation 05/25/18 05/25/1818 08:10 08:10 15:06 WBC 14.9 H RBC 3.80 L Hgb 10.3 L Hct 32.6 L MCV 85.8 MCH 27.1 MCHC 31.5 L RDW 17.1 Plt Count 394 MPV 8.0 Prelim Diff (Auto) Slide review pending Neut % (Auto) 93.4 H Lymph % (Auto) 4.0 L [place] % (Auto) 2.3 Eos % (Auto) 0.0 Baso % (Auto) 0.3 Neut # (Auto) 13.9 H Lymph # (Auto) 0.6 L [place] # (Auto) 0.3 Eos # (Auto) 0.0 Baso # (Auto) 0.0 WBC Differential . Diff Scan Auto diff confirmed Differential Comment . Sodium 141 143 Potassium 6.3 H D 5.5 H D Chloride 113 H 113 H Carbon Dioxide 15.8 L 17.6 L Anion Gap 12 12 BUN 58 H 57 H Creatinine 3.02 H 2.95 H Estimated GFR 18 L 18 L Random Glucose 155 H 114 H Calcium 7.9 L 8.4 L Total Bilirubin 0.1 L AST 13 L ALT 14 Alkaline Phosphatase 318 H Total Alk Phosphatase Total Protein 5.6 L Albumin 1.5 L Lipase [address] Tot Porphyr Revd By Plasma Porphyrin Intrp JING Titer JING Pattern JING Interpretation <Jordana Sebastian - Last Filed: 05/25/18 18:00> - Labs CBC & Chem 7: 05/25/18 08:10 05/25/18 15:06 Laboratory Results - last 24 hr 05/22/18 05/22/18 05/22/18 06:25 13:40 13:40 WBC RBC Hgb Hct MCV MCH MCHC RDW Plt Count MPV Prelim Diff (Auto) Neut % (Auto) Lymph % (Auto) [place] % (Auto) Eos % (Auto) Baso % (Auto) Neut # (Auto) Lymph # (Auto) [place] # (Auto) Eos # (Auto) Baso # (Auto) WBC Differential Diff Scan Differential Comment Sodium Potassium Chloride Carbon Dioxide Anion Gap BUN Creatinine Estimated GFR Random Glucose Calcium Total Bilirubin AST ALT Alkaline Phosphatase Total Alk Phosphatase 406 H Total Protein Albumin Lipase Plasma Total Porphyrins Less than 1.0 Pl Tot Porphyr Revd By See below Plasma Porphyrin Intrp . JING Titer 1:80 H JING Pattern Speckled H JING Interpretation 05/25/18 05/25/18 05/25/18 08:10 08:10 15:06 WBC 14.9 H RBC 3.80 L Hgb 10.3 L Hct 32.6 L MCV 85.8 MCH 27.1 MCHC 31.5 L RDW 17.1 Plt Count 394 MPV 8.0 Prelim Diff (Auto) Slide review pending Neut % (Auto) 93.4 H Lymph % (Auto) 4.0 L [place] % (Auto) 2.3 Eos % (Auto) 0.0 Baso % (Auto) 0.3 Neut # (Auto) 13.9 H Lymph # (Auto) 0.6 L [place] # (Auto) 0.3 Eos # (Auto) 0.0 Baso # (Auto) 0.0 WBC Differential . Diff Scan Auto diff confirmed Differential Comment . Sodium 141 143 Potassium 6.3 H D 5.5 H D Chloride 113 H 113 H Carbon Dioxide 15.8 L 17.6 L Anion Gap 12 12 BUN 58 H 57 H Creatinine 3.02 H 2.95 H Estimated GFR 18 L 18 L Random Glucose 155 H 114 H Calcium 7.9 L 8.4 L Total Bilirubin 0.1 L AST 13 L ALT 14 Alkaline Phosphatase 318 H Total Alk Phosphatase Total Protein 5.6 L Albumin 1.5 L Lipase [address] Tot Porphyr Revd By Plasma Porphyrin Intrp JING Titer JING Pattern JING Interpretation <Jelly Lino A - Last Filed: 05/25/18 21:24> Assessment and Plan (1) Gastroparesis Status: Acute Code(s): K31.84 - Gastroparesis (2) Idiopathic pancreatitis Status: Chronic Code(s): K85.00 - Idiopathic acute pancreatitis without necrosis or infection (3) Abdominal pain Status: Acute Code(s): R10.9 - Unspecified abdominal pain (4) History of biliary stent insertion Status: Acute Code(s): Z98.890 - Other specified postprocedural states (5) Elevated LFTs Status: Acute Code(s): R94.5 - Abnormal results of liver function studies - Plan Assessment: - Recurrent idiopathic pancreatitis- No signs of biliary obstruction from labs. Will order HIDA for evaluation Complaining of upper abdominal pain, located across entire upper abdomen, pain is constant, described as sharp. Worse with PO intake. Associated nausea, denies emesis. Recent hospitalization for same- initial ERCP unable to place stent due to kink in current stent, pt underwent PTC by IR, repeat ERCP done on 03/07 with successful metallic biliary stent placement and pt later had external biliary drain removed. Follow up in office in April with continued abdominal pain, noted to be seen in ER twice prior with same complaints, CT abdomen was negative. Pt was scheduled for repeat ERCP with stent exchange which she has not had done yet CT abdomen and pelvis WO IV contrast (05/16) Stable and grossly unremarkable follow-up CT scan compare to prior study. Stable tiny 2 mm nonobstructing stone right kidney. Stable 1.4 cm right renal cyst. 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 Pt currently NPO. 05/20/2018 patient is status post HIDA scan. Results show no focal deficits seen in the hepatic kinetics normal flow rate. Activity seen in the biliary system and 25 minutes normal excretion into the small bowel patient is status post colon cystectomy post CCK prompt visualization of activity in the duodenum no evidence of biliary obstruction. Patient continues to complain of some upper abdominal dull ache. Current treatment for recurrent idiopathic pancreatitis and supportive care. Since HIDA scan is negative for instructions okay to discharge from a GI standpoint and we will follow as outpatient. ERCP with stent change as an outpatient. Celiac plexus pain management as an outpatient, current hemoglobin stable at 11.3, WBC count 15.5 unspecified. 05/21/2018. Patient continues to complain of abdominal pain and require pain management with questionable effectiveness. She is weakened, Discussion between hospitalist and Dr. Schwartz for plan of care. Ultrasound of mesenteric vessels ordered today to rule out mesenteric ischemia, with possible ERCP Wednesday. Labs IgG, sed rate, discharge planning for possible tertiary center. There is no family present 05/24/2018 patient is awake eyes open and currently complains of no abdominal pain today. Mesenteric arteriogram shows widely patent vessels with no ischemia. Planned stent change as outpatient and celiac plexus pain management as outpatient. 05/25/2018 patient is resting with her eyes closed and appears more comfortable now. Glucerna 1.5 infusing at 30 cc an hour per J-tube without any distress Patient appears to be at her baseline for gradual improvement. GI will monitor but discharge planning is okay from our standpoint Plan: Diet, continue feedings per J-tube Anti-medics, Creon Monitor symptoms of abdominal pain for any acute changes Bowel regimen Supportive care Pt has been seen per myself and Dr. Lino, this note was written on her behalf <Jordana Sebastian - Last Filed: 05/25/18 18:00> (1) Gastroparesis Status: Acute Code(s): K31.84 - Gastroparesis (2) Idiopathic pancreatitis Status: Chronic Code(s): K85.00 - Idiopathic acute pancreatitis without necrosis or infection (3) Abdominal pain Status: Acute Code(s): R10.9 - Unspecified abdominal pain (4) History of biliary stent insertion Status: Acute Code(s): Z98.890 - Other specified postprocedural states (5) Elevated LFTs Status: Acute Code(s): R94.5 - Abnormal results of liver function studies - Attending Attestation As above, discharge plan noted. Needs to follow up at [facility] for biopsies results. <Jelly Lino - Last Filed: 05/25/18 21:24> <Jelly Lino - Last Filed: 05/25/18 21:24> (2) Idiopathic pancreatitis Qualifiers: Chronicity: chronic Qualified Code(s): K86.1 - Other chronic pancreatitis
[2018-05-25 23:53] LABS: Alk Phos Bone Isoenzymes 39 % (28-66); Alk Phos Intestine Isoenzymes 0 % (1-24); Alk Phos Liver Isoenzymes 61 % (25-69); Alk Phos MacroHep Isoenzyme ND % (()); Alk Phos Placental Isoenzymes 0 % (0)
[2018-05-26 07:04] LABS: Albumin 1.9 g/dL (3.4-5.0); Calcium 8.1 mg/dL (8.5-10.1); Phosphorus 2.7 mg/dL (2.5-4.9); Potassium 5.8 meq/L (3.5-5.1)
[2018-05-26] MEDS: MethylPREDNISolone Sod Succinate Inj 40 MG/ML Vial IV.PUSH SCH ×2 (08:50→22:37)
[2018-05-26] MEDS: Metoprolol Tartrate 25 MG Tablet PO SCH ×2 (08:51→22:34)
[2018-05-26] MEDS: rifAXIMin 550 MG Tablet PO SCH (08:51)
[2018-05-26] MEDS: Sodium Bicarbonate 650 MG Tablet PO SCH ×2 (08:51→22:36)
[2018-05-26] MEDS: Senna/Docusate Sodium 8.6/50 MG Tablet PO SCH ×2 (08:51→22:34)
[2018-05-26] MEDS: [UNRECOGNIZED DRUG - REMARK] PO SCH ×3 (08:51→18:05)
--- NOTE | 2018-05-26 09:06 | P.PNIM ---
Subjective Interval history: feeling better. abdomen feels better will try more food. Physical Exam Vital signs: Vital Signs 05/25/18 12:00 05/25/18 16:00 05/25/18 20:00 Temperature 97.4 F L 97.5 F L 98.1 F Pulse Rate 70 72 101 H Respiratory Rate 18 18 Blood Pressure 153/77 H 154/69 H 179/79 H Pulse Oximetry 100 100 97 05/25/18 23:20 05/26/18 00:00 05/26/18 03:19 Temperature 98.6 F Pulse Rate 69 Respiratory Rate 18 18 18 Blood Pressure 178/87 H Pulse Oximetry 98 05/26/18 04:00 Temperature 98.1 F Pulse Rate 78 Respiratory Rate 18 Blood Pressure 172/83 H Pulse Oximetry 95 Intake & Output 05/25/18 05/26/18 05/26/18 18:59 06:59 18:59 Weight 66.2 kg Other: # Voids 3 4 Date of Last Bowel Movement 05/24/18 05/24/18 heart reg lung cta abd s/nt ext no edema Results - Labs CBC & Chem 7: 05/25/18 08:10 05/26/18 05:55 Laboratory Results - last 24 hr 05/22/18 05/22/18 05/22/18 06:25 13:40 13:40 WBC RBC Hgb Hct MCV MCH MCHC RDW Plt Count MPV Prelim Diff (Auto) Neut % (Auto) Lymph % (Auto) [place] % (Auto) Eos % (Auto) Baso % (Auto) Neut # (Auto) Lymph # (Auto) [place] # (Auto) Eos # (Auto) Baso # (Auto) WBC Differential Diff Scan Differential Comment Sodium Potassium Chloride Carbon Dioxide Anion Gap BUN Creatinine Estimated GFR Random Glucose Calcium Phosphorus Total Bilirubin AST ALT Alkaline Phosphatase Total Alk Phosphatase 406 H Alk Phos Iso-Intestine 0 L Alk Phos Iso-Intes Intp ND Alk Phos Iso-Bone 39 Alk Phos Iso-Liver 61 Alk Phos Iso-Macro Hepat ND Alk Phos Iso-Placenta 0 Total Protein Albumin Lipase Plasma Total Porphyrins Less than 1.0 Pl Tot Porphyr Revd By See below Plasma Porphyrin Intrp . JING Titer 1:80 H JING Pattern Speckled H JING Interpretation 05/25/18 05/25/18 05/25/18 08:10 08:10 15:06 WBC 14.9 H RBC 3.80 L Hgb 10.3 L Hct 32.6 L MCV 85.8 MCH 27.1 MCHC 31.5 L RDW 17.1 Plt Count 394 MPV 8.0 Prelim Diff (Auto) Slide review pending Neut % (Auto) 93.4 H Lymph % (Auto) 4.0 L [place] % (Auto) 2.3 Eos % (Auto) 0.0 Baso % (Auto) 0.3 Neut # (Auto) 13.9 H Lymph # (Auto) 0.6 L [place] # (Auto) 0.3 Eos # (Auto) 0.0 Baso # (Auto) 0.0 WBC Differential . Diff Scan Auto diff confirmed Differential Comment . Sodium 141 143 Potassium 6.3 H D 5.5 H D Chloride 113 H 113 H Carbon Dioxide 15.8 L 17.6 L Anion Gap 12 12 BUN 58 H 57 H Creatinine 3.02 H 2.95 H Estimated GFR 18 L 18 L Random Glucose 155 H 114 H Calcium 7.9 L 8.4 L Phosphorus Total Bilirubin 0.1 L AST 13 L ALT 14 Alkaline Phosphatase 318 H Total Alk Phosphatase Alk Phos Iso-Intestine Alk Phos Iso-Intes Intp Alk Phos Iso-Bone Alk Phos Iso-Liver Alk Phos Iso-Macro Hepat Alk Phos Iso-Placenta Total Protein 5.6 L Albumin 1.5 L Lipase [address] Tot Porphyr Revd By Plasma Porphyrin Intrp JING Titer JING Pattern JING Interpretation 05/26/18 05:55 WBC RBC Hgb Hct MCV MCH MCHC RDW Plt Count MPV Prelim Diff (Auto) Neut % (Auto) Lymph % (Auto) [place] % (Auto) Eos % (Auto) Baso % (Auto) Neut # (Auto) Lymph # (Auto) [place] # (Auto) Eos # (Auto) Baso # (Auto) WBC Differential Diff Scan Differential Comment Sodium 144 Potassium 5.8 H Chloride 113 H Carbon Dioxide 19.0 L Anion Gap 12 BUN 59 H Creatinine 2.84 H Estimated GFR 19 L Random Glucose 161 H Calcium 8.1 L Phosphorus 2.7 Total Bilirubin AST ALT Alkaline Phosphatase Total Alk Phosphatase Alk Phos Iso-Intestine Alk Phos Iso-Intes Intp Alk Phos Iso-Bone Alk Phos Iso-Liver Alk Phos Iso-Macro Hepat Alk Phos Iso-Placenta Total Protein Albumin 1.9 L Lipase Plasma Total Porphyrins Pl Tot Porphyr Revd By Plasma Porphyrin Intrp JING Titer JING Pattern JING Interpretation Assessment and Plan - Assessment (1) Abdominal pain Code(s): R10.9 - Unspecified abdominal pain Status: Acute Plan: (1) Idiopathic pancreatitis Code(s): K85.00 - Idiopathic acute pancreatitis without necrosis or infection Status: Chronic Plan: - Ms. Larsen is an 82 y/o AAF with recurrent idiopathic pancreatitis. She has been hospitalized numerous times for issues with pain control related to recurrent pancreatitis. Her last admission was from 03/03/18 to 03/28/18 and she had biliary obstruction at that time. - During that admission she underwent evaluation with ERCP (03/03/18) which noted multiple stones, migrated metal stent up into CBD, could not put plastic stent due to "kink" in current stent according to GI notes. She required PTC placement on 03/04 by IR which noted severe obstruction of the proximal common bile duct stent with very challenging recanalization requiring multiple wires and catheters. biliary stent placement. She had to have a repeat ERCP (03/07/18) and had to have the metal stent cleared of debris and they were able to confirm complete clearance of the stent with good emptying through the stent. She had a percutaneous cholangiogram on 03/09/18 where the external portion of biliary drain was removed and the report showed some small hyperplasia within the distal aspect of the biliary stent but there is a patent channel down to the small bowel. - Pt presented back to the ED at [facility] [place] [place] on 05/16/18 with continued abdominal pain that is similar to her previous pancreatitis pain. - Her labs in the ED revealed WBC count 18.2, Cr 4.56/BUN 60, Lipase 350. Her LFTs were mostly WNL with TBili 0.3, AST 17, ALT less than 6, AlkPhos 211. - CT Abd/pelvis w/o IV contrast in the ED which noted stable and grossly unremarkable follow-up CT scan of the abdomen and pelvis compared to the prior study on 04/24/18, stable tiny 2 mm nonobstructing stone right kidney, and stable 1.4 cm right renal cyst. - comgmt with GI - Case d/w GI, Dr. Schwartz (05/18/18) - HIDA scan 05/19 reviewed and reveals: Negative examination. Normal biliary kinetics; no evidence of obstruction. - - Pt's last celiac plexus block performed by Dr. Rivera (05/13/17). Pt needs to f/ u with Dr. Rivera outpt to see if pt might benefit from repeat of the procedure - Change Jevity 1.5 to continuous feedings at 55ml/hour with free water flush 200ml q8 hours - Request consult from Dietary, RE: tube feeding optimization - Pain control PRN with [place] and Morphine PRN - zofran as need for N/V - Monitor labs - Supportive care - DVT prophylaxis with SCDs -s/p ercp 05/23 with balloon sweep of stone fragments/debris from metal stent and placement of new stent - GJ tube exchange 710 with IR -mesenteric angio with IR 05/24. prelim report no high grade obstructions resumed tube feeding and titrate as tolerated. n/v/d better. titrate tf and advance diet as tolerated dose kayexalate for hyperkalemia and recheck reassess for dc home tomorrow. (2) Acute on chronic kidney failure Code(s): N17.9 - Acute kidney failure, unspecified; N18.9 - Chronic kidney disease, unspecified Status: Acute Plan: - Pt with baseline stage 3 CKD, pt follows with Dr. Melara - Her labs at admission with a noted acute worsening of her baseline CKD. - Labs on 04/24 noted Cr is 3.51/BUN 38. Repeat labs on 04/30 with Cr 3.72/BUN 35 , GFR 14. - Labs at admission noted Cr 4.56/BUN 60 - Await consult from Nephrology - Repeat labs - Cr 4.08/BUN 51 (05/17) - Cr 3.74/BUN 46 (05/18) - Cr 3.44/BUN 43 (05/19) - cr 3.17/BUN 40 (05/20) - ivf given - Avoid nephrotoxic agents (3) HTN (hypertension) Code(s): I10 - Essential (primary) hypertension Status: Acute Plan: - Cont. home meds - Monitor (4) GERD (gastroesophageal reflux disease) Code(s): K21.9 - Gastro-esophageal reflux disease without esophagitis Status: Acute Plan: - PPI (5) Anemia Code(s): D64.9 - Anemia, unspecified Status: Chronic Plan: - Pt with an acute decrease in her chronic anemia on 7/3 with Hgb down to 7.6 - > 11.3 (7/4) - No noted active bleeding - s/p Transfuse 2 units PRBCs with Lasix 20mg IV in between the two units
[2018-05-26] MEDS ORDERED: Sodium Polystyrene Sulfonate/Sorbitol Liq 15 GM/60 ML UDC PO ONE (10:00)
[2018-05-26] MEDS: DRONABINOL 2.5 MG CAPSULE PO SCH ×2 (12:02→18:05)
--- NOTE | 2018-05-26 16:04 | P.PNNP ---
Subjective Interval history: Reports mild shortness of breath, nausea is improving. Creatinine is improving at 2.84. <Shreya Tejeda - Last Filed: 05/26/18 15:57> Physical Exam Vital signs: Vital Signs 05/25/18 16:00 05/25/18 20:00 05/25/18 23:20 Temperature 97.5 F L 98.1 F Pulse Rate 72 101 H Respiratory Rate 18 18 Blood Pressure 154/69 H 179/79 H Pulse Oximetry 100 97 05/26/18 00:00 05/26/18 03:19 05/26/18 04:00 Temperature 98.6 F 98.1 F Pulse Rate 69 78 Respiratory Rate 18 18 18 Blood Pressure 178/87 H 172/83 H Pulse Oximetry 98 95 05/26/18 08:00 05/26/18 12:00 Temperature 98.0 F 98.5 F Pulse Rate 69 66 Respiratory Rate 20 20 Blood Pressure 161/87 H 141/74 H Pulse Oximetry 99 100 Intake & Output 05/25/18 05/26/18 05/26/18 18:59 06:59 18:59 Weight 66.2 kg Other: # Voids 3 4 Date of Last Bowel Movement 05/24/18 05/24/18 - Constitutional no acute distress - Routine HEENT Exam Head: Present: normocephalic ENT: Present: mucous membranes moist - Routine Neck Exam Present: supple. Absent: JVD - Routine Respiratory Exam Present: decreased breath sounds. Absent: rales, rhonchi - Routine Cardiovascular Exam Present: RRR - Routine Abdominal Exam Present: soft, normoactive bowel sounds, tenderness - Routine Extremities Exam Absent: edema - Routine Skin Exam Present: dry, warm - Routine Neurological Exam Present: alert, oriented X3 <Shreya Tejeda - Last Filed: 05/26/18 15:57> Vital signs: Vital Signs 05/25/18 20:00 05/25/18 23:20 05/26/18 00:00 Temperature 98.1 F 98.6 F Pulse Rate 101 H 69 Respiratory Rate 18 18 Blood Pressure 179/79 H 178/87 H Pulse Oximetry 97 98 05/26/18 03:19 05/26/18 04:00 05/26/18 08:00 Temperature 98.1 F 98.0 F Pulse Rate 78 69 Respiratory Rate 18 18 20 Blood Pressure 172/83 H 161/87 H Pulse Oximetry 95 99 05/26/18 12:00 05/26/18 16:00 Temperature 98.5 F 98.4 F Pulse Rate 66 66 Respiratory Rate 20 20 Blood Pressure 141/74 H 173/85 H Pulse Oximetry 100 96 Intake & Output 05/25/18 05/26/18 05/26/18 18:59 06:59 18:59 Weight 66.2 kg Other: # Voids 3 4 Date of Last Bowel Movement 05/24/18 05/24/18 # Bowel Movements 1 <Samson Kennedy - Last Filed: 05/26/18 18:41> Assessment and Plan - Assessment (1) Acute on chronic kidney failure Code(s): N17.9 - Acute kidney failure, unspecified; N18.9 - Chronic kidney disease, unspecified Status: Acute Qualifiers: Chronic kidney disease stage: stage 3 (moderate) Plan: The patient has known history of chronic kidney disease, followed by Dr. Melara with a baseline creatinine 2.3-2.7. There is no proteinuria. 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 Creatinine improving 3.02 ->2.95 ->2.84 Potassium level at 5.8 HCO3 at 18 ->19 Continue to encourage PO intake Continue Sodium bicarbonate BID Avoid any nephrotoxins. With hyperkalemia one dose of Kayexalate has been given. Tube feeding has been changed to Nephro Unsure of urinary output as not documented will order strict I+O's Follow the urine output and the BUN and creatinine. Labs in AM (2) Anemia Code(s): D64.9 - Anemia, unspecified Status: Chronic Qualifiers: Anemia type: unspecified type Qualified Code(s): D64.9 - Anemia, unspecified Plan: HGB stable will monitor (3) HTN (hypertension) Code(s): I10 - Essential (primary) hypertension Status: Acute Plan: Elevated will add amlodipine <Shreya Tejeda - Last Filed: 05/26/18 15:57> - Assessment (1) Acute on chronic kidney failure Code(s): N17.9 - Acute kidney failure, unspecified; N18.9 - Chronic kidney disease, unspecified Status: Acute Qualifiers: Chronic kidney disease stage: stage 3 (moderate) (2) Anemia Code(s): D64.9 - Anemia, unspecified Status: Chronic Qualifiers: Anemia type: unspecified type Qualified Code(s): D64.9 - Anemia, unspecified (3) HTN (hypertension) Code(s): I10 - Essential (primary) hypertension Status: Acute - Attending Attestation Patient seen and examined, agree with above. Creatinine is same, K is elevated, Kayexalate given. Change the feeding yo Nepro. <Samson Kennedy - Last Filed: 05/26/18 18:41>
[2018-05-27 09:31] LABS: Calcium 8.3 mg/dL (8.5-10.1); Carbon Dioxide 21.3 meq/L (21.0-32.0); Potassium 5.2 meq/L (3.5-5.1)
[2018-05-27 09:32] LABS: Phosphorus 2.6 mg/dL (2.5-4.9)
[2018-05-27] MEDS: rifAXIMin 550 MG Tablet PO SCH ×2 (09:32→13:29)
[2018-05-27] MEDS: Metoprolol Tartrate 25 MG Tablet PO SCH (09:33)
[2018-05-27] MEDS: Sodium Bicarbonate 650 MG Tablet PO SCH (09:33)
[2018-05-27] MEDS: [UNRECOGNIZED DRUG - REMARK] PO SCH ×3 (09:33→17:44)
[2018-05-27] MEDS: Senna/Docusate Sodium 8.6/50 MG Tablet PO SCH (09:33)
[2018-05-27] MEDS: amLODIPine 5 MG Tablet PO SCH (09:33)
[2018-05-27] MEDS: MethylPREDNISolone Sod Succinate Inj 40 MG/ML Vial IV.PUSH SCH (09:33)
--- NOTE | 2018-05-27 09:54 | P.PNIM ---
Subjective Interval history: now today c/o more midepigastric pain. says it's her typical pancreas pain. pt had clear liquid ordered but receiving solid food tray Physical Exam Vital signs: Vital Signs 05/26/18 12:00 05/26/18 16:00 05/26/18 20:00 Temperature 98.5 F 98.4 F 98.0 F Pulse Rate 66 66 73 Respiratory Rate 20 20 16 Blood Pressure 141/74 H 173/85 H 111/54 L Pulse Oximetry 100 96 95 05/26/18 20:33 05/27/18 00:00 05/27/18 04:00 Temperature 98.0 F 98.0 F Pulse Rate 98 H 73 Respiratory Rate 8 L 19 16 Blood Pressure 185/83 H 111/54 L Pulse Oximetry 95 95 05/27/18 08:00 Temperature 98.2 F Pulse Rate 73 Respiratory Rate 20 Blood Pressure 158/79 H Pulse Oximetry 96 Intake & Output 05/26/18 05/27/18 05/27/18 18:59 06:59 18:59 Intake Total 566 / 566 Balance 566 / 566 Intake: Tube Feeding 366 / 366 Water Bolus Amount 200 / 200 Other: # Bowel Movements 1 heart reg lung cta abd epigastric tenderness.nd. bs. gj tube ext no edema Results - Labs CBC & Chem 7: 05/25/18 08:10 05/27/18 07:48 Laboratory Results - last 24 hr 05/22/18 05/22/18 05/27/18 06:05 13:40 07:48 Sodium 146 H Potassium 5.2 H Chloride 113 H Carbon Dioxide 21.3 Anion Gap 12 BUN 63 H Creatinine 2.77 H Estimated GFR 20 L Random Glucose 162 H Calcium 8.3 L Phosphorus 2.6 Albumin 2.0 L IgG Total 765 IgG1 536 IgG2 148 L IgG3 74 IgG4 15.1 Mitochondria M2 IgG Ab Less than 20.0 Assessment and Plan - Assessment (1) Abdominal pain Code(s): R10.9 - Unspecified abdominal pain Status: Acute Plan: (1) Idiopathic pancreatitis Code(s): K85.00 - Idiopathic acute pancreatitis without necrosis or infection Status: Chronic Plan: - Ms. Larsen is an 82 y/o AAF with recurrent idiopathic pancreatitis. She has been hospitalized numerous times for issues with pain control related to recurrent pancreatitis. Her last admission was from 03/03/18 to 03/28/18 and she had biliary obstruction at that time. - During that admission she underwent evaluation with ERCP (03/03/18) which noted multiple stones, migrated metal stent up into CBD, could not put plastic stent due to "kink" in current stent according to GI notes. She required PTC placement on 03/04 by IR which noted severe obstruction of the proximal common bile duct stent with very challenging recanalization requiring multiple wires and catheters. biliary stent placement. She had to have a repeat ERCP (03/07/18) and had to have the metal stent cleared of debris and they were able to confirm complete clearance of the stent with good emptying through the stent. She had a percutaneous cholangiogram on 03/09/18 where the external portion of biliary drain was removed and the report showed some small hyperplasia within the distal aspect of the biliary stent but there is a patent channel down to the small bowel. - Pt presented back to the ED at [facility] on 05/16/18 with continued abdominal pain that is similar to her previous pancreatitis pain. - Her labs in the ED revealed WBC count 18.2, Cr 4.56/BUN 60, Lipase 350. Her LFTs were mostly WNL with TBili 0.3, AST 17, ALT less than 6, AlkPhos 211. - CT Abd/pelvis w/o IV contrast in the ED which noted stable and grossly unremarkable follow-up CT scan of the abdomen and pelvis compared to the prior study on 04/24/18, stable tiny 2 mm nonobstructing stone right kidney, and stable 1.4 cm right renal cyst. - comgmt with GI - Case d/w GI, Dr. Schwartz (05/18/18) - HIDA scan 05/19 reviewed and reveals: Negative examination. Normal biliary kinetics; no evidence of obstruction. -- Pt's last celiac plexus block performed by Dr. Rivera (05/13/17). Pt needs to f /u with Dr. Rivera outpt to see if pt might benefit from repeat of the procedure -s/p ercp 05/23 with balloon sweep of stone fragments/debris from metal stent and placement of new stent - GJ tube exchange 710 with IR -mesenteric angio with IR 05/24. patent vessels. - Pain control PRN with [place] and Morphine PRN - zofran as need for N/V - Monitor labs - Supportive care - DVT prophylaxis with SCDs Pt getting nepro tf. not tolerating goal rate. pt was getting solid tray instead of liquid. now more pain check lft/lipase. still not ready for dc home. (2) Acute on chronic kidney failure Code(s): N17.9 - Acute kidney failure, unspecified; N18.9 - Chronic kidney disease, unspecified Status: Acute Plan: - Pt with baseline stage 3 CKD, pt follows with Dr. Melara - Her labs at admission with a noted acute worsening of her baseline CKD. - Labs on 04/24 noted Cr is 3.51/BUN 38. Repeat labs on 04/30 with Cr 3.72/BUN 35 , GFR 14. - Labs at admission noted Cr 4.56/BUN 60 - Await consult from Nephrology - Repeat labs - Cr 4.08/BUN 51 (05/17) - Cr 3.74/BUN 46 (05/18) - Cr 3.44/BUN 43 (05/19) - cr 3.17/BUN 40 (05/20) - ivf given - Avoid nephrotoxic agents (3) HTN (hypertension) Code(s): I10 - Essential (primary) hypertension Status: Acute Plan: - Cont. home meds - Monitor (4) GERD (gastroesophageal reflux disease) Code(s): K21.9 - Gastro-esophageal reflux disease without esophagitis Status: Acute Plan: - PPI (5) Anemia Code(s): D64.9 - Anemia, unspecified Status: Chronic Plan: - Pt with an acute decrease in her chronic anemia on 05/17 with Hgb down to 7.6 - > 11.3 (05/18) - No noted active bleeding - s/p Transfuse 2 units PRBCs with Lasix 20mg IV in between the two units
[2018-05-27] MEDS: DRONABINOL 2.5 MG CAPSULE PO SCH ×2 (10:53→16:35)
--- NOTE | 2018-05-27 15:49 | P.PNNP ---
Subjective Interval history: Patient seen in AM, more alert, not in distress. Physical Exam Vital signs: Vital Signs 05/26/18 16:00 05/26/18 20:00 05/26/18 20:33 Temperature 98.4 F 98.0 F Pulse Rate 66 73 Respiratory Rate 20 16 8 L Blood Pressure 173/85 H 111/54 L Pulse Oximetry 96 95 05/27/18 00:00 05/27/18 04:00 05/27/18 08:00 Temperature 98.0 F 98.0 F 98.2 F Pulse Rate 98 H 73 73 Respiratory Rate 19 16 20 Blood Pressure 185/83 H 111/54 L 158/79 H Pulse Oximetry 95 95 96 Intake & Output 05/26/18 05/27/18 05/27/18 18:59 06:59 18:59 Intake Total 566 / 566 Balance 566 / 566 Intake: Tube Feeding 366 / 366 Water Bolus Amount 200 / 200 Other: # Bowel Movements 1 Narrative: GENERAL: Patient is alert, not in distress. CARDIO: Regular RESP: Breath sounds equal bilaterally. No accessory muscle use. ABD: Abdomen soft, generalized tenderness with palpation --> but less tender with distraction GJ tube in place, no drainage or erythema EXT: No cyanosis, or edema. Assessment and Plan - Assessment (1) Acute on chronic kidney failure Code(s): N17.9 - Acute kidney failure, unspecified; N18.9 - Chronic kidney disease, unspecified Status: Acute Qualifiers: Chronic kidney disease stage: stage 3 (moderate) Plan: The patient has known history of chronic kidney disease, followed by Dr. Melara with a baseline creatinine 2.3-2.7. There is no proteinuria. 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 Creatinine remain stable at 2,7 now. K is 5.2 and Na. 146. Encourage oral intake. Continue to encourage PO intake Continue Sodium bicarbonate BID Avoid any nephrotoxins. With hyperkalemia one dose of Kayexalate has been given. Tube feeding has been changed to Nephro Unsure of urinary output as not documented will order strict I+O's Follow the urine output and the BUN and creatinine. (2) Anemia Code(s): D64.9 - Anemia, unspecified Status: Chronic Qualifiers: Anemia type: unspecified type Qualified Code(s): D64.9 - Anemia, unspecified Plan: HGB stable will monitor (3) HTN (hypertension) Code(s): I10 - Essential (primary) hypertension Status: Acute Plan: Elevated will add amlodipine
[2018-05-28] MEDS: Metoprolol Tartrate 25 MG Tablet PO SCH ×3 (01:54→20:40)
[2018-05-28] MEDS: Senna/Docusate Sodium 8.6/50 MG Tablet PO SCH ×3 (01:54→20:40)
[2018-05-28] MEDS: Sodium Bicarbonate 650 MG Tablet PO SCH ×3 (01:54→20:39)
[2018-05-28] MEDS: rifAXIMin 550 MG Tablet PO SCH ×3 (01:54→20:39)
[2018-05-28 05:22] LABS: Baso % (Auto) 0.2 % (0.0-2.0); Eos % (Auto) 0.2 % (0.0-4.0); Hemoglobin 9.8 gm/dL (11.6-15.3); Lymph # (Auto) 1.5 th/mm3 (1.0-4.8); Lymph % (Auto) 8.4 % (9.0-44.0); Mean Corpuscular HGB Conc 31.7 % (32.0-36.0); Mean Corpuscular Hemoglobin 27.6 pg (27.0-34.0); Mean Corpuscular Volume 86.9 fL (80.0-100.0); Mean Platelet Volume 8.5 fL (7.0-11.0); Mono # (Auto) 0.9 th/mm3 (0.0-0.9); Mono % (Auto) 5.4 % (0.0-8.0); Neut % (Auto) 85.8 % (16.0-70.0); Platelet Count 293 th/mm3 (150-450); Red Blood Count 3.56 mil/mm3 (4.00-5.30); White Blood Count 17.5 th/mm3 (4.0-11.0)
[2018-05-28 06:18] LABS: Albumin 2.1 g/dL (3.4-5.0); Carbon Dioxide 24.6 meq/L (21.0-32.0); Potassium 4.6 meq/L (3.5-5.1)
[2018-05-28 06:21] LABS: Total Protein 5.7 g/dL (6.4-8.2)
[2018-05-28] MEDS: predniSONE 20 MG Tablet PO SCH (09:18)
[2018-05-28] MEDS: [UNRECOGNIZED DRUG - REMARK] PO SCH ×3 (09:18→20:02)
[2018-05-28] MEDS: amLODIPine 5 MG Tablet PO SCH (09:18)
--- NOTE | 2018-05-28 10:02 | P.PNIM ---
Subjective Interval history: seems a little more comfortable. Physical Exam Vital signs: Vital Signs 05/27/18 12:00 05/27/18 16:00 05/27/18 20:00 Temperature 98.4 F 98.6 F 97.9 F Pulse Rate 69 66 68 Respiratory Rate 20 20 14 Blood Pressure 138/72 178/87 H 115/57 L Pulse Oximetry 97 96 95 05/27/18 23:36 05/28/18 02:55 05/28/18 04:00 Temperature 98.0 F 98.2 F Pulse Rate 69 71 Respiratory Rate 14 14 16 Blood Pressure 110/60 117/69 Pulse Oximetry 96 95 Intake & Output 05/27/18 05/28/18 05/28/18 18:59 06:59 18:59 Intake Total 1806 / 1806 240 / 240 Output Total 200 / 200 Balance 1606 / 1606 240 / 240 Weight 67.2 kg Intake: Oral 360 / 360 240 / 240 Tube Feeding 366 / 366 Water Bolus Amount 200 / 200 Anesthesia Amount 400 / 400 Other 480 / 480 Output: Urine 200 / 200 Other: # Voids 4 2 # Urine Diapers 1 Date of Last Bowel Movement 05/24/18 # Bowel Movements 1 heart reg lung cta abd s/nd/bs. mild epig. tenderness. gj tube ext no edema Results - Labs CBC & Chem 7: 05/28/18 04:47 05/28/18 04:47 Laboratory Results - last 24 hr 05/28/18 05/28/18 04:47 04:47 WBC 17.5 H RBC 3.56 L Hgb 9.8 L Hct 31.0 L MCV 86.9 MCH 27.6 MCHC 31.7 L RDW 17.0 Plt Count 293 MPV 8.5 Prelim Diff (Auto) Slide review pending Neut % (Auto) 85.8 H Lymph % (Auto) 8.4 L [place] % (Auto) 5.4 Eos % (Auto) 0.2 Baso % (Auto) 0.2 Neut # (Auto) 15.0 H Lymph # (Auto) 1.5 [place] # (Auto) 0.9 Eos # (Auto) 0.0 Baso # (Auto) 0.0 Differential Comment . Sodium 146 H Potassium 4.6 Chloride 111 H Carbon Dioxide 24.6 Anion Gap 10 BUN 57 H Creatinine 2.47 H Estimated GFR 23 L Random Glucose 104 Calcium 8.0 L Total Bilirubin 0.2 Direct Bilirubin 0.1 Indirect Bilirubin 0.1 AST 12 L ALT 14 Alkaline Phosphatase 201 H Total Protein 5.7 L Albumin 2.1 L Lipase 200 Assessment and Plan - Assessment (1) Abdominal pain Code(s): R10.9 - Unspecified abdominal pain Status: Acute Plan: (1) Idiopathic pancreatitis Code(s): K85.00 - Idiopathic acute pancreatitis without necrosis or infection Status: Chronic Plan: - Ms. Larsen is an 82 y/o AAF with recurrent idiopathic pancreatitis. She has been hospitalized numerous times for issues with pain control related to recurrent pancreatitis. Her last admission was from 03/03/18 to 03/28/18 and she had biliary obstruction at that time. - During that admission she underwent evaluation with ERCP (03/03/18) which noted multiple stones, migrated metal stent up into CBD, could not put plastic stent due to "kink" in current stent according to GI notes. She required PTC placement on 03/04 by IR which noted severe obstruction of the proximal common bile duct stent with very challenging recanalization requiring multiple wires and catheters. biliary stent placement. She had to have a repeat ERCP (03/07/18) and had to have the metal stent cleared of debris and they were able to confirm complete clearance of the stent with good emptying through the stent. She had a percutaneous cholangiogram on 03/09/18 where the external portion of biliary drain was removed and the report showed some small hyperplasia within the distal aspect of the biliary stent but there is a patent channel down to the small bowel. - Pt presented back to the ED at [facility] [place] on 05/16/18 with continued abdominal pain that is similar to her previous pancreatitis pain. - Her labs in the ED revealed WBC count 18.2, Cr 4.56/BUN 60, Lipase 350. Her LFTs were mostly WNL with TBili 0.3, AST 17, ALT less than 6, AlkPhos 211. - CT Abd/pelvis w/o IV contrast in the ED which noted stable and grossly unremarkable follow-up CT scan of the abdomen and pelvis compared to the prior study on 04/24/18, stable tiny 2 mm nonobstructing stone right kidney, and stable 1.4 cm right renal cyst. - comgmt with GI - Case d/w GI, Dr. Schwartz (05/18/18) - HIDA scan 05/19 reviewed and reveals: Negative examination. Normal biliary kinetics; no evidence of obstruction. -- Pt's last celiac plexus block performed by Dr. Rivera (05/13/17). Pt needs to f /u with Dr. Rivera outpt to see if pt might benefit from repeat of the procedure -s/p ercp 05/23 with balloon sweep of stone fragments/debris from metal stent and placement of new stent - GJ tube exchange 710 with IR -mesenteric angio with IR 05/24. patent vessels. - Pain control PRN with [place] and Morphine PRN - zofran as need for N/V - Monitor labs - Supportive care - DVT prophylaxis with SCDs Pt getting nepro tf. was not tolerating goal rate. pt was getting solid tray instead of liquid. more pain. lft/lipase stable. some improvement overnight. cont to monitor and try for dc on Wednesday (2) Acute on chronic kidney failure Code(s): N17.9 - Acute kidney failure, unspecified; N18.9 - Chronic kidney disease, unspecified Status: Acute Plan: - Pt with baseline stage 3 CKD, pt follows with Dr. Melara - Her labs at admission with a noted acute worsening of her baseline CKD. - Labs on 04/24 noted Cr is 3.51/BUN 38. Repeat labs on 04/30 with Cr 3.72/BUN 35 , GFR 14. - Labs at admission noted Cr 4.56/BUN 60 - Await consult from Nephrology - Repeat labs - Cr 4.08/BUN 51 (05/17) - Cr 3.74/BUN 46 (05/18) - Cr 3.44/BUN 43 (05/19) - cr 3.17/BUN 40 (05/20) - ivf given - Avoid nephrotoxic agents (3) HTN (hypertension) Code(s): I10 - Essential (primary) hypertension Status: Acute Plan: - Cont. home meds - Monitor (4) GERD (gastroesophageal reflux disease) Code(s): K21.9 - Gastro-esophageal reflux disease without esophagitis Status: Acute Plan: - PPI (5) Anemia Code(s): D64.9 - Anemia, unspecified Status: Chronic Plan: - Pt with an acute decrease in her chronic anemia on 05/17 with Hgb down to 7.6 - > 11.3 (05/18) - No noted active bleeding - s/p Transfuse 2 units PRBCs with Lasix 20mg IV in between the two units
[2018-05-28 10:14] LABS: Lymphocytes 8 % (9-44); Metamyelocytes 3 % (0-1); Monocytes 6 % (0-8); Myelocytes 1 % (0-0); Platelet Estimate Normal (Normal); Platelet Morphology Normal (Normal); Target Cells 1+
[2018-05-28] MEDS: DRONABINOL 2.5 MG CAPSULE PO SCH ×2 (12:52→20:01)
--- NOTE | 2018-05-28 12:59 | P.PNNP ---
Subjective Interval history: Resting comfortably. Reports nausea and abdominal discomfort but improved. Creatinine at 2.47. <Shreya Tejeda - Last Filed: 05/28/18 12:54> Physical Exam Vital signs: Vital Signs 05/27/18 16:00 05/27/18 20:00 05/27/18 23:36 Temperature 98.6 F 97.9 F 98.0 F Pulse Rate 66 68 69 Respiratory Rate 20 14 14 Blood Pressure 178/87 H 115/57 L 110/60 Pulse Oximetry 96 95 96 05/28/18 02:55 05/28/18 04:00 05/28/18 08:00 Temperature 98.2 F 98 F Pulse Rate 71 73 Respiratory Rate 14 16 18 Blood Pressure 117/69 153/73 H Pulse Oximetry 95 100 Intake & Output 05/27/18 05/28/18 05/28/18 18:59 06:59 18:59 Intake Total 1806 / 1806 240 / 240 Output Total 200 / 200 Balance 1606 / 1606 240 / 240 Weight 67.2 kg Intake: Oral 360 / 360 240 / 240 Tube Feeding 366 / 366 Water Bolus Amount 200 / 200 Anesthesia Amount 400 / 400 Other 480 / 480 Output: Urine 200 / 200 Other: # Voids 4 2 # Urine Diapers 1 Date of Last Bowel Movement 05/24/18 # Bowel Movements 1 - Constitutional no acute distress - Routine HEENT Exam Head: Present: normocephalic ENT: Present: mucous membranes moist - Routine Neck Exam Present: supple. Absent: JVD - Routine Respiratory Exam Present: decreased breath sounds. Absent: rales, rhonchi - Routine Cardiovascular Exam Present: RRR - Routine Abdominal Exam Present: soft, normoactive bowel sounds, tenderness - Routine Extremities Exam Absent: edema - Routine Skin Exam Present: dry, warm - Routine Neurological Exam Present: alert, oriented X3 <Shreya Tejeda - Last Filed: 05/28/18 12:54> Vital signs: Vital Signs 05/28/18 12:00 05/28/18 16:00 05/28/18 21:00 Temperature 97.8 F 98 F 97.9 F Pulse Rate 71 75 78 Respiratory Rate 18 18 17 Blood Pressure 147/70 H 150/70 H 150/72 H Pulse Oximetry 100 99 100 05/28/18 21:15 05/29/18 00:40 05/29/18 05:30 Temperature 98.6 F 98 F Pulse Rate 66 62 Respiratory Rate 18 19 20 Blood Pressure 145/67 H 148/66 H Pulse Oximetry 100 99 05/29/18 08:55 Temperature 98.4 F Pulse Rate 87 Respiratory Rate 17 Blood Pressure 163/87 H Pulse Oximetry 100 Intake & Output 05/28/18 05/29/18 05/29/18 18:59 06:59 18:59 Intake Total 240 / 240 1150 / 1150 Balance 240 / 240 1150 / 1150 Weight 68 kg Intake: Oral 240 / 240 1150 / 1150 Other: # Voids 2 4 Date of Last Bowel Movement 05/24/18 05/28/18 # Bowel Movements 0 <Samson Kennedy - Last Filed: 05/29/18 10:23> Assessment and Plan - Assessment (1) Acute on chronic kidney failure Code(s): N17.9 - Acute kidney failure, unspecified; N18.9 - Chronic kidney disease, unspecified Status: Acute Qualifiers: Chronic kidney disease stage: stage 3 (moderate) Plan: The patient has known history of chronic kidney disease, followed by Dr. Melara with a baseline creatinine 2.3-2.7. There is no proteinuria. 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 Creatinine improved at 2.47 from 2.79 Potassium at 4.6 Hypernatremia at 146, Continue to encourage PO intake Continue Sodium bicarbonate BID Avoid any nephrotoxins. Hyperkalemia resolved continue Nephro for tube feeding Follow the urine output and the BUN and creatinine. (2) Anemia Code(s): D64.9 - Anemia, unspecified Status: Chronic Qualifiers: Anemia type: unspecified type Qualified Code(s): D64.9 - Anemia, unspecified Plan: HGB stable will monitor (3) HTN (hypertension) Code(s): I10 - Essential (primary) hypertension Status: Acute Plan: Monitoring <Shreya Tejeda - Last Filed: 05/28/18 12:54> - Assessment (1) Acute on chronic kidney failure Code(s): N17.9 - Acute kidney failure, unspecified; N18.9 - Chronic kidney disease, unspecified Status: Acute Qualifiers: Chronic kidney disease stage: stage 3 (moderate) (2) Anemia Code(s): D64.9 - Anemia, unspecified Status: Chronic Qualifiers: Anemia type: unspecified type Qualified Code(s): D64.9 - Anemia, unspecified (3) HTN (hypertension) Code(s): I10 - Essential (primary) hypertension Status: Acute - Attending Attestation Patient seen and examined, agree with above. Creatinine is better, On NaHco3, encourage oral intake. <Samson Kennedy - Last Filed: 05/29/18 10:23>
[2018-05-29] MEDS: [UNRECOGNIZED DRUG - REMARK] PO SCH ×3 (08:57→18:08)
[2018-05-29] MEDS: Metoprolol Tartrate 25 MG Tablet PO SCH ×2 (08:57→22:33)
[2018-05-29] MEDS: predniSONE 20 MG Tablet PO SCH (08:57)
[2018-05-29] MEDS: amLODIPine 5 MG Tablet PO SCH (08:57)
[2018-05-29] MEDS: Sodium Bicarbonate 650 MG Tablet PO SCH ×2 (08:57→22:47)
[2018-05-29] MEDS: Senna/Docusate Sodium 8.6/50 MG Tablet PO SCH ×2 (08:57→22:47)
[2018-05-29] MEDS: rifAXIMin 550 MG Tablet PO SCH ×2 (09:32→22:34)
--- NOTE | 2018-05-29 11:20 | P.PNIM ---
Subjective Interval history: pt reluctant to say her abdomen pain much better while I was present the pt had alot of gas Physical Exam Vital signs: Vital Signs 05/28/18 12:00 05/28/18 16:00 05/28/18 21:00 Temperature 97.8 F 98 F 97.9 F Pulse Rate 71 75 78 Respiratory Rate 18 18 17 Blood Pressure 147/70 H 150/70 H 150/72 H Pulse Oximetry 100 99 100 05/28/18 21:15 05/29/18 00:40 05/29/18 05:30 Temperature 98.6 F 98 F Pulse Rate 66 62 Respiratory Rate 18 19 20 Blood Pressure 145/67 H 148/66 H Pulse Oximetry 100 99 05/29/18 08:55 Temperature 98.4 F Pulse Rate 87 Respiratory Rate 17 Blood Pressure 163/87 H Pulse Oximetry 100 Intake & Output 05/28/18 05/29/18 05/29/18 18:59 06:59 18:59 Intake Total 240 / 240 1150 / 1150 Balance 240 / 240 1150 / 1150 Weight 68 kg Intake: Oral 240 / 240 1150 / 1150 Other: # Voids 2 4 Date of Last Bowel Movement 05/24/18 05/28/18 # Bowel Movements 0 heent neg heart reg lung cta abd s/nt. gj tube ext no edema Results - Labs CBC & Chem 7: 05/28/18 04:47 05/28/18 04:47 Assessment and Plan - Assessment (1) Abdominal pain Code(s): R10.9 - Unspecified abdominal pain Status: Acute Plan: (1) Idiopathic pancreatitis Code(s): K85.00 - Idiopathic acute pancreatitis without necrosis or infection Status: Chronic Plan: - Ms. Larsen is an 82 y/o AAF with recurrent idiopathic pancreatitis. She has been hospitalized numerous times for issues with pain control related to recurrent pancreatitis. Her last admission was from 03/03/18 to 03/28/18 and she had biliary obstruction at that time. - During that admission she underwent evaluation with ERCP (03/03/18) which noted multiple stones, migrated metal stent up into CBD, could not put plastic stent due to "kink" in current stent according to GI notes. She required PTC placement on 03/04 by IR which noted severe obstruction of the proximal common bile duct stent with very challenging recanalization requiring multiple wires and catheters. biliary stent placement. She had to have a repeat ERCP (03/07/18) and had to have the metal stent cleared of debris and they were able to confirm complete clearance of the stent with good emptying through the stent. She had a percutaneous cholangiogram on 03/09/18 where the external portion of biliary drain was removed and the report showed some small hyperplasia within the distal aspect of the biliary stent but there is a patent channel down to the small bowel. - Pt presented back to the ED at [facility] on 05/16/18 with continued abdominal pain that is similar to her previous pancreatitis pain. - Her labs in the ED revealed WBC count 18.2, Cr 4.56/BUN 60, Lipase 350. Her LFTs were mostly WNL with TBili 0.3, AST 17, ALT less than 6, AlkPhos 211. - CT Abd/pelvis w/o IV contrast in the ED which noted stable and grossly unremarkable follow-up CT scan of the abdomen and pelvis compared to the prior study on 04/24/18, stable tiny 2 mm nonobstructing stone right kidney, and stable 1.4 cm right renal cyst. - comgmt with GI - Case d/w GI, Dr. Schwartz (05/18/18) - HIDA scan 05/19 reviewed and reveals: Negative examination. Normal biliary kinetics; no evidence of obstruction. -- Pt's last celiac plexus block performed by Dr. Rivera (05/13/17). Pt needs to f /u with Dr. Rivera outpt to see if pt might benefit from repeat of the procedure -s/p ercp 05/23 with balloon sweep of stone fragments/debris from metal stent and placement of new stent - GJ tube exchange 710 with IR -mesenteric angio with IR 05/24. patent vessels. - Pain control PRN with [place] and Morphine PRN - zofran as need for N/V - Monitor labs - Supportive care - DVT prophylaxis with SCDs Pt getting nepro tf currently at 45ml/hr. goal was 55/hr . pt was getting solid tray instead of liquid. more pain. lft/lipase stable. some improvement overnight.add simethicone for gas. cont to monitor and try for dc on Wednesday or Wednesday prednisone taper. (2) Acute on chronic kidney failure Code(s): N17.9 - Acute kidney failure, unspecified; N18.9 - Chronic kidney disease, unspecified Status: Acute Plan: - Pt with baseline stage 3 CKD, pt follows with Dr. Melara - Her labs at admission with a noted acute worsening of her baseline CKD. - Labs on 04/24 noted Cr is 3.51/BUN 38. Repeat labs on 04/30 with Cr 3.72/BUN 35 , GFR 14. - Labs at admission noted Cr 4.56/BUN 60 - Await consult from Nephrology - Repeat labs - Cr 4.08/BUN 51 (05/17) - Cr 3.74/BUN 46 (05/18) - Cr 3.44/BUN 43 (05/19) - cr 3.17/BUN 40 (05/20) - ivf given - Avoid nephrotoxic agents (3) HTN (hypertension) Code(s): I10 - Essential (primary) hypertension Status: Acute Plan: - Cont. home meds - Monitor (4) GERD (gastroesophageal reflux disease) Code(s): K21.9 - Gastro-esophageal reflux disease without esophagitis Status: Acute Plan: - PPI (5) Anemia Code(s): D64.9 - Anemia, unspecified Status: Chronic Plan: - Pt with an acute decrease in her chronic anemia on 05/17 with Hgb down to 7.6 - > 11.3 (05/18) - No noted active bleeding - s/p Transfuse 2 units PRBCs with Lasix 20mg IV in between the two units
--- NOTE | 2018-05-29 12:45 | P.PNNP ---
Subjective Interval history: Reports abdominal discomfort. Oral intake has improved. Family at bedside. <ShaunacameronShreya - Last Filed: 05/29/18 12:43> Physical Exam Vital signs: Vital Signs 05/28/18 16:00 05/28/18 21:00 05/28/18 21:15 Temperature 98 F 97.9 F Pulse Rate 75 78 Respiratory Rate 18 17 18 Blood Pressure 150/70 H 150/72 H Pulse Oximetry 99 100 05/29/18 00:40 05/29/18 05:30 05/29/18 08:55 Temperature 98.6 F 98 F 98.4 F Pulse Rate 66 62 87 Respiratory Rate 19 20 17 Blood Pressure 145/67 H 148/66 H 163/87 H Pulse Oximetry 100 99 100 Intake & Output 05/28/18 05/29/18 05/29/18 18:59 06:59 18:59 Intake Total 240 / 240 1150 / 1150 Balance 240 / 240 1150 / 1150 Weight 68 kg Intake: Oral 240 / 240 1150 / 1150 Other: # Voids 2 4 Date of Last Bowel Movement 05/24/18 05/28/18 # Bowel Movements 0 - Constitutional no acute distress - Routine HEENT Exam Head: Present: normocephalic - Routine Neck Exam Present: supple. Absent: JVD - Routine Respiratory Exam Present: decreased breath sounds. Absent: rales, rhonchi, wheezes - Routine Cardiovascular Exam Present: RRR. Absent: murmur - Routine Abdominal Exam Present: soft, normoactive bowel sounds, tenderness, distended - Routine Extremities Exam Absent: edema - Routine Skin Exam Present: dry, warm - Routine Neurological Exam Present: alert, oriented X3 - Routine Psychiatric Exam Present: cooperative <ShaunacameronShreya - Last Filed: 05/29/18 12:43> Vital signs: Vital Signs 06/01/18 12:00 06/01/18 16:00 06/01/18 20:00 Temperature 98 F 97.5 F L 97.7 F Pulse Rate 69 71 69 Respiratory Rate 17 18 17 Blood Pressure 124/70 132/71 110/66 Pulse Oximetry 99 98 99 06/02/18 00:00 06/02/18 04:00 06/02/18 08:00 Temperature 97.7 F 99.0 F 98.3 F Pulse Rate 74 70 Respiratory Rate 17 17 20 Blood Pressure 107/71 126/60 136/67 Pulse Oximetry 99 92 L 98 Intake & Output 06/01/18 06/02/18 06/02/18 18:59 06:59 18:59 Intake Total 240 / 240 240 / 240 Output Total 750 / 750 Balance -510 / -510 240 / 240 Weight 65 kg Intake: Oral 240 / 240 240 / 240 Output: Urine 750 / 750 Other: # Voids 3 # Bowel Movements 4 <Samson Kennedy - Last Filed: 06/02/18 11:19> Assessment and Plan - Assessment (1) Acute on chronic kidney failure Code(s): N17.9 - Acute kidney failure, unspecified; N18.9 - Chronic kidney disease, unspecified Status: Acute Qualifiers: Chronic kidney disease stage: stage 3 (moderate) Plan: The patient has known history of chronic kidney disease, followed by Dr. Melara with a baseline creatinine 2.3-2.7. There is no proteinuria. 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 Creatinine improved at 2.47 from 2.79 yesterday Continue to encourage PO intake Continue Sodium bicarbonate BID Avoid any nephrotoxins. Follow the urine output and the BUN and creatinine. No new labs today but ordered for tomorrow (2) Anemia Code(s): D64.9 - Anemia, unspecified Status: Chronic Qualifiers: Anemia type: unspecified type Qualified Code(s): D64.9 - Anemia, unspecified Plan: HGB stable will monitor (3) HTN (hypertension) Code(s): I10 - Essential (primary) hypertension Status: Acute Plan: Monitoring <Shreya Tejeda - Last Filed: 05/29/18 12:43> - Assessment (1) Acute on chronic kidney failure Code(s): N17.9 - Acute kidney failure, unspecified; N18.9 - Chronic kidney disease, unspecified Status: Acute Qualifiers: Acute renal failure type: unspecified Chronic kidney disease stage: stage 4 (severe) Qualified Code(s): N17.9 - Acute kidney failure, unspecified; N18.4 - Chronic kidney disease, stage 4 (severe) (2) GERD (gastroesophageal reflux disease) Code(s): K21.9 - Gastro-esophageal reflux disease without esophagitis Status: Acute (3) Gastroparesis Code(s): K31.84 - Gastroparesis Status: Acute - Attending Attestation Patient seen and examined, agree with above. Creatinine was 2.4, now new labs today. Encourage oral intake. <Samson Kennedy - Last Filed: 06/02/18 11:19>
[2018-05-29] MEDS: DRONABINOL 2.5 MG CAPSULE PO SCH ×2 (13:38→18:08)
[2018-05-29] MEDS: Simethicone 125 MG Chew Tablet PO SCH ×2 (18:08→20:36)
[2018-05-30] MEDS: predniSONE 20 MG Tablet PO SCH (08:14)
[2018-05-30] MEDS: [UNRECOGNIZED DRUG - REMARK] PO SCH ×3 (08:14→18:10)
[2018-05-30] MEDS: amLODIPine 5 MG Tablet PO SCH (08:14)
[2018-05-30] MEDS: Sodium Bicarbonate 650 MG Tablet PO SCH ×2 (08:14→20:33)
[2018-05-30] MEDS: Metoprolol Tartrate 25 MG Tablet PO SCH ×2 (08:14→20:33)
[2018-05-30] MEDS: rifAXIMin 550 MG Tablet PO SCH ×2 (08:14→20:32)
[2018-05-30] MEDS: Senna/Docusate Sodium 8.6/50 MG Tablet PO SCH ×2 (08:15→20:34)
[2018-05-30 11:13] LABS: Eos # (Auto) 0.3 th/mm3 (0.0-0.4); Eos % (Auto) 2.3 % (0.0-4.0); Hematocrit 32.9 % (35.0-46.0); Hemoglobin 10.5 gm/dL (11.6-15.3); Lymph # (Auto) 1.3 th/mm3 (1.0-4.8); Lymph % (Auto) 9.2 % (9.0-44.0); Mean Corpuscular Hemoglobin 27.6 pg (27.0-34.0); Mean Corpuscular Volume 86.5 fL (80.0-100.0); Mean Platelet Volume 9.2 fL (7.0-11.0); Mono # (Auto) 0.6 th/mm3 (0.0-0.9); Mono % (Auto) 4.6 % (0.0-8.0); Neut # (Auto) 11.9 th/mm3 (1.8-7.7); Neut % (Auto) 83.9 % (16.0-70.0); Platelet Count 250 th/mm3 (150-450); Red Blood Count 3.81 mil/mm3 (4.00-5.30); Red Cell Distribution Width 16.6 % (11.6-17.2); White Blood Count 14.2 th/mm3 (4.0-11.0)
[2018-05-30 11:34] LABS: Albumin 2.2 g/dL (3.4-5.0); Calcium 7.8 mg/dL (8.5-10.1); Carbon Dioxide 28.2 meq/L (21.0-32.0); Phosphorus 1.8 mg/dL (2.5-4.9); Potassium 4.3 meq/L (3.5-5.1)
[2018-05-30] MEDS: Simethicone 125 MG Chew Tablet PO SCH ×3 (11:40→18:10)
[2018-05-30] MEDS: DRONABINOL 2.5 MG CAPSULE PO SCH ×2 (11:43→18:10)
[2018-05-30 12:20] LABS: Eosinophils 2 % (0-4); Lymphocytes 11 % (9-44); Metamyelocytes 1 % (0-1); Promyelocyte 2 % (0-0)
[2018-05-30 12:21] LABS: Platelet Estimate Normal (Normal); Platelet Morphology Normal (Normal)
--- NOTE | 2018-05-30 12:59 | P.PNIM ---
Subjective Interval history: Pt voices NO new complaints. Pt denies abdominal pain. Pt denies n/v. Pt is tolerating clears. Pt is tolerating tube feeds. Pt agrees that she is feeling better and would agree with discharge to home 05/31/18 Physical Exam Vital signs: Vital Signs 05/29/18 18:37 05/29/18 20:30 05/30/18 00:00 Temperature 98.1 F 98.8 F Pulse Rate 69 72 Respiratory Rate 18 19 20 Blood Pressure 140/69 148/68 H Pulse Oximetry 96 97 05/30/18 05:30 05/30/18 08:00 Temperature 98.8 F 98.2 F Pulse Rate 74 70 Respiratory Rate 17 14 Blood Pressure 164/82 H 157/79 H Pulse Oximetry 97 99 Intake & Output 05/29/18 05/30/18 05/30/18 18:59 06:59 18:59 Intake Total 1000 / 1000 120 / 120 Balance 1000 / 1000 120 / 120 Weight 68 kg Intake: Oral 1000 / 1000 120 / 120 Other: # Voids 4 Date of Last Bowel Movement 05/28/18 05/29/18 05/29/18 # Bowel Movements 0 Narrative: GENERAL: Patient is alert, not in distress. CARDIO: Regular RESP: clear x b/l ABD: Abdomen soft, NT, ND, no g/r/r GJ tube in place, no drainage or erythema EXT: No cyanosis, or edema. Results - Labs CBC & Chem 7: 05/30/18 09:29 05/30/18 09:29 Laboratory Results - last 24 hr 05/30/18 05/30/18 09:29 09:29 WBC 14.2 H RBC 3.81 L Hgb 10.5 L Hct 32.9 L MCV 86.5 MCH 27.6 MCHC 32.0 RDW 16.6 Plt Count 250 MPV 9.2 Prelim Diff (Auto) Slide review pending Neut % (Auto) 83.9 H Lymph % (Auto) 9.2 [place] % (Auto) 4.6 Eos % (Auto) 2.3 Baso % (Auto) 0.0 Neut # (Auto) 11.9 H Lymph # (Auto) 1.3 [place] # (Auto) 0.6 Eos # (Auto) 0.3 Baso # (Auto) 0.0 WBC Differential Manual diff final Seg Neuts % (Manual) 84 H Lymphocytes % (Manual) 11 Eosinophils % (Manual) 2 Metamyelocytes % (Man) 1 Promyelocytes % (Man) 2 H Abs Neuts (Manual) 12.4 H Differential Comment . Platelet Estimate Normal Platelet Morphology Normal Sodium 141 Potassium 4.3 Chloride 103 Carbon Dioxide 28.2 Anion Gap 10 BUN 54 H Creatinine 2.44 H Estimated GFR 23 L Random Glucose 149 H Calcium 7.8 L Phosphorus 1.8 L Albumin 2.2 L Assessment and Plan - Assessment (1) Abdominal pain Code(s): R10.9 - Unspecified abdominal pain Status: Acute Plan: (1) Idiopathic pancreatitis Code(s): K85.00 - Idiopathic acute pancreatitis without necrosis or infection Status: Chronic Plan: - Ms. Larsen is an 82 y/o AAF with recurrent idiopathic pancreatitis. She has been hospitalized numerous times for issues with pain control related to recurrent pancreatitis. Her last admission was from 03/03/18 to 03/28/18 and she had biliary obstruction at that time. - During that admission she underwent evaluation with ERCP (03/03/18) which noted multiple stones, migrated metal stent up into CBD, could not put plastic stent due to "kink" in current stent according to GI notes. She required PTC placement on 03/04 by IR which noted severe obstruction of the proximal common bile duct stent with very challenging recanalization requiring multiple wires and catheters. biliary stent placement. She had to have a repeat ERCP (03/07/18) and had to have the metal stent cleared of debris and they were able to confirm complete clearance of the stent with good emptying through the stent. She had a percutaneous cholangiogram on 03/09/18 where the external portion of biliary drain was removed and the report showed some small hyperplasia within the distal aspect of the biliary stent but there is a patent channel down to the small bowel. - Pt presented back to the ED at [facility] [place] on 05/16/18 with continued abdominal pain that is similar to her previous pancreatitis pain. - Her labs in the ED revealed WBC count 18.2, Cr 4.56/BUN 60, Lipase 350. Her LFTs were mostly WNL with TBili 0.3, AST 17, ALT less than 6, AlkPhos 211. - CT Abd/pelvis w/o IV contrast in the ED which noted stable and grossly unremarkable follow-up CT scan of the abdomen and pelvis compared to the prior study on 04/24/18, stable tiny 2 mm nonobstructing stone right kidney, and stable 1.4 cm right renal cyst. - comgmt with GI - Case d/w GI, Dr. Schwartz (05/18/18) - HIDA scan 05/19 reviewed and reveals: Negative examination. Normal biliary kinetics; no evidence of obstruction. - Pt's last celiac plexus block performed by Dr. Rivera (05/13/17). Pt needs to f/u with Dr. Rivera outpt to see if pt might benefit from repeat of the procedure -s/p ercp 05/23 with balloon sweep of stone fragments/debris from metal stent and placement of new stent - GJ tube exchange 710 with IR -mesenteric angio with IR 05/24. patent vessels. - Pain control PRN with [place] and Morphine PRN - zofran as need for N/V - Monitor labs - Supportive care - DVT prophylaxis with SCDs - continue Nepro at 45ml/hour and liquids by mouth - continue slow PO prednisone taper - if pt remains stable, will d/c to home with [facility] 05/31/18 - Pt/daughter, Caitlyn, (by phone) were updated & agreed with plan. (2) Acute on chronic kidney failure Code(s): N17.9 - Acute kidney failure, unspecified; N18.9 - Chronic kidney disease, unspecified Status: Acute Plan: - Pt with baseline stage 3 CKD, pt follows with Dr. Melara - Her labs at admission with a noted acute worsening of her baseline CKD. - Labs on 04/24 noted Cr is 3.51/BUN 38. Repeat labs on 04/30 with Cr 3.72/BUN 35 , GFR 14. - Labs at admission noted Cr 4.56/BUN 60 - comgmt with Nephrology - Repeat labs - Cr 4.08/BUN 51 (/) - Cr 3.74/BUN 46 (/) - Cr 3.44/BUN 43 (05/19) - cr 3.17/BUN 40 (05/20) - Cr 2.44/BUN 54 (05/30) - Avoid nephrotoxic agents (3) HTN (hypertension) Code(s): I10 - Essential (primary) hypertension Status: Acute Plan: - Cont. home meds - Monitor (4) GERD (gastroesophageal reflux disease) Code(s): K21.9 - Gastro-esophageal reflux disease without esophagitis Status: Acute Plan: - PPI (5) Anemia Code(s): D64.9 - Anemia, unspecified Status: Chronic Plan: - Pt with an acute decrease in her chronic anemia on 05/17 with Hgb down to 7.6 - > 11.3 (05/18) - No noted active bleeding - s/p Transfuse 2 units PRBCs with Lasix 20mg IV in between the two units - Hg 10.5/HCT 32.9 (05/30)
--- NOTE | 2018-05-30 13:04 | P.DCO ---
- Diagnosis (2) Idiopathic pancreatitis (5) Anemia - Physical Therapy Order: Evaluate and treat, Improve ambulation, Strength and gait training - Home Health Nursing Order: Medical education, Signs/symptoms of disease process, Medication education-adverse effect, Nursing assessment with vital signs - Certification I have seen patient Park Larsen on 05/30/18. My clinical findings support the need for the requested home health care services because: Deconditioned with increased weakness, Medication compliance is questionable, Limited ability to care for self, Need for psychosocial assistance, Impaired cognition/judgement I certify that my clinical findings support that this patient is homebound because: Impaired cognitive ability/safety, Unsafe to leave home unassisted, Need for psychosocial assistance, Non-ambulatory: confined to bed or chair, Unable to use public transportation (2) Idiopathic pancreatitis Qualifiers: Chronicity: chronic Qualified Code(s): K86.1 - Other chronic pancreatitis (5) Anemia Qualifiers: Anemia type: unspecified type Qualified Code(s): D64.9 - Anemia, unspecified
--- NOTE | 2018-05-30 17:34 | P.PNNP ---
Subjective Interval history: She is tolerating liquids well Physical Exam Vital signs: Vital Signs 05/29/18 18:37 05/29/18 20:30 05/30/18 00:00 Temperature 98.1 F 98.8 F Pulse Rate 69 72 Respiratory Rate 18 19 20 Blood Pressure 140/69 148/68 H Pulse Oximetry 96 97 05/30/18 05:30 05/30/18 08:00 05/30/18 12:00 Temperature 98.8 F 98.2 F 98.8 F Pulse Rate 74 70 69 Respiratory Rate 17 14 16 Blood Pressure 164/82 H 157/79 H 142/70 H Pulse Oximetry 97 99 100 05/30/18 16:00 Temperature 98.6 F Pulse Rate 83 Respiratory Rate 16 Blood Pressure 134/66 Pulse Oximetry 100 Intake & Output 05/29/18 05/30/18 05/30/18 18:59 06:59 18:59 Intake Total 1000 / 1000 120 / 120 Balance 1000 / 1000 120 / 120 Weight 68 kg Intake: Oral 1000 / 1000 120 / 120 Other: # Voids 4 Date of Last Bowel Movement 05/28/18 05/29/18 05/29/18 # Bowel Movements 0 - Constitutional no acute distress - Routine HEENT Exam Head: Present: normocephalic - Routine Neck Exam Present: supple - Routine Respiratory Exam Present: CTA bilaterally - Routine Cardiovascular Exam Present: RRR, S1, S2 - Routine Abdominal Exam Present: soft, normoactive bowel sounds - Routine Extremities Exam Present: full ROM Assessment and Plan - Assessment (1) Acute on chronic kidney failure Code(s): N17.9 - Acute kidney failure, unspecified; N18.9 - Chronic kidney disease, unspecified Status: Acute Qualifiers: Acute renal failure type: unspecified Chronic kidney disease stage: stage 4 (severe) Qualified Code(s): N17.9 - Acute kidney failure, unspecified; N18.4 - Chronic kidney disease, stage 4 (severe) Plan: Patient creatinine did decline to 2.4 at baseline 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
[2018-05-31] MEDS: [UNRECOGNIZED DRUG - REMARK] PO SCH ×3 (10:09→17:21)
[2018-05-31] MEDS: Sodium Bicarbonate 650 MG Tablet PO SCH ×2 (10:10→20:46)
[2018-05-31] MEDS: Simethicone 125 MG Chew Tablet PO SCH ×3 (10:10→17:21)
[2018-05-31] MEDS: predniSONE 20 MG Tablet PO SCH (10:10)
[2018-05-31] MEDS: Metoprolol Tartrate 25 MG Tablet PO SCH ×2 (10:11→20:47)
[2018-05-31] MEDS: rifAXIMin 550 MG Tablet PO SCH ×2 (10:11→20:47)
[2018-05-31] MEDS: Senna/Docusate Sodium 8.6/50 MG Tablet PO SCH ×2 (10:11→20:46)
[2018-05-31] MEDS: amLODIPine 5 MG Tablet PO SCH (10:11)
[2018-05-31] MEDS: DRONABINOL 2.5 MG CAPSULE PO SCH ×2 (12:52→17:21)
--- NOTE | 2018-05-31 13:21 | P.PNIM ---
Subjective Interval history: Pt c/o increased abdominal pain today. Pt's TF was stopped last night per pt request. Pt felt that TF was causing her increased abdominal pain. Physical Exam Vital signs: Vital Signs 05/30/18 16:00 05/30/18 20:00 05/31/18 00:00 Temperature 98.6 F 99.2 F 99.1 F Pulse Rate 83 80 74 Respiratory Rate 16 18 18 Blood Pressure 134/66 133/67 158/76 H Pulse Oximetry 100 95 96 05/31/18 04:00 05/31/18 08:00 Temperature 99.1 F 98.4 F Pulse Rate 75 73 Respiratory Rate 18 20 Blood Pressure 175/88 H 141/73 H Pulse Oximetry 95 98 Intake & Output 05/30/18 05/31/18 05/31/18 18:59 06:59 18:59 Intake Total 120 / 120 200 / 200 Balance 120 / 120 200 / 200 Intake: Oral 120 / 120 Water Bolus Amount 200 / 200 Other: # Voids 3 Date of Last Bowel Movement 05/29/18 05/31/18 Narrative: GENERAL: Patient is alert, not in distress. CARDIO: Regular RESP: clear x b/l ABD: Abdomen soft, mild tenderness on palpation at LUQ GJ tube in place, no drainage or erythema EXT: No cyanosis, or edema. Results - Labs CBC & Chem 7: 05/30/18 09:29 05/30/18 09:29 Assessment and Plan - Assessment (1) Abdominal pain Code(s): R10.9 - Unspecified abdominal pain Status: Acute Plan: (1) Idiopathic pancreatitis Code(s): K85.00 - Idiopathic acute pancreatitis without necrosis or infection Status: Chronic Plan: - Ms. Larsen is an 82 y/o AAF with recurrent idiopathic pancreatitis. She has been hospitalized numerous times for issues with pain control related to recurrent pancreatitis. Her last admission was from 03/03/18 to 03/28/18 and she had biliary obstruction at that time. - During that admission she underwent evaluation with ERCP (03/03/18) which noted multiple stones, migrated metal stent up into CBD, could not put plastic stent due to "kink" in current stent according to GI notes. She required PTC placement on 03/04 by IR which noted severe obstruction of the proximal common bile duct stent with very challenging recanalization requiring multiple wires and catheters. biliary stent placement. She had to have a repeat ERCP (03/07/18) and had to have the metal stent cleared of debris and they were able to confirm complete clearance of the stent with good emptying through the stent. She had a percutaneous cholangiogram on 03/09/18 where the external portion of biliary drain was removed and the report showed some small hyperplasia within the distal aspect of the biliary stent but there is a patent channel down to the small bowel. - Pt presented back to the ED at [facility] on 05/16/18 with continued abdominal pain that is similar to her previous pancreatitis pain. - Her labs in the ED revealed WBC count 18.2, Cr 4.56/BUN 60, Lipase 350. Her LFTs were mostly WNL with TBili 0.3, AST 17, ALT less than 6, AlkPhos 211. - CT Abd/pelvis w/o IV contrast in the ED which noted stable and grossly unremarkable follow-up CT scan of the abdomen and pelvis compared to the prior study on 04/24/18, stable tiny 2 mm nonobstructing stone right kidney, and stable 1.4 cm right renal cyst. - comgmt with GI - Case d/w GI, Dr. Schwartz (05/18/18) - HIDA scan 05/19 reviewed and reveals: Negative examination. Normal biliary kinetics; no evidence of obstruction. - Pt's last celiac plexus block performed by Dr. Rivera (05/13/17). Pt needs to f/u with Dr. Rivera outpt to see if pt might benefit from repeat of the procedure -s/p ercp 05/23 with balloon sweep of stone fragments/debris from metal stent and placement of new stent - GJ tube exchange 710 with IR -mesenteric angio with IR 05/24. patent vessels. - Pain control PRN with [place] PRN - zofran as need for N/V - obtain repeat CBC, CMP, Mag, lipase - will try to resume Nepro TF at 15ml/hour and slowly titrate back to 45ml/hour - continue slow prednisone taper. Revert to solumedrol? Will observe. - Monitor labs - Supportive care - DVT prophylaxis with SCDs - if pt remains stable, will d/c to home with [facility] 05/31/18 - Pt/daughter, Caitlyn, (by phone) were updated & agreed with plan (05/31/18) (2) Acute on chronic kidney failure Code(s): N17.9 - Acute kidney failure, unspecified; N18.9 - Chronic kidney disease, unspecified Status: Acute Plan: - Pt with baseline stage 3 CKD, pt follows with Dr. Melara - Her labs at admission with a noted acute worsening of her baseline CKD. - Labs on 04/24 noted Cr is 3.51/BUN 38. Repeat labs on 04/30 with Cr 3.72/BUN 35 , GFR 14. - Labs at admission noted Cr 4.56/BUN 60 - comgmt with Nephrology - Repeat labs - Cr 4.08/BUN 51 (05/17) - Cr 3.74/BUN 46 (05/18) - Cr 3.44/BUN 43 (05/19) - cr 3.17/BUN 40 (05/20) - Cr 2.44/BUN 54 (05/30) - Avoid nephrotoxic agents (3) HTN (hypertension) Code(s): I10 - Essential (primary) hypertension Status: Acute Plan: - Cont. home meds - Monitor (4) GERD (gastroesophageal reflux disease) Code(s): K21.9 - Gastro-esophageal reflux disease without esophagitis Status: Acute Plan: - PPI (5) Anemia Code(s): D64.9 - Anemia, unspecified Status: Chronic Plan: - Pt with an acute decrease in her chronic anemia on 05/17 with Hgb down to 7.6 - > 11.3 (05/18) - No noted active bleeding - s/p Transfuse 2 units PRBCs with Lasix 20mg IV in between the two units - Hg 10.5/HCT 32.9 (05/30) (2) Idiopathic pancreatitis Code(s): K85.00 - Idiopathic acute pancreatitis without necrosis or infection Status: Chronic Plan: (1) Idiopathic pancreatitis Code(s): K85.00 - Idiopathic acute pancreatitis without necrosis or infection Status: Chronic Plan: - Ms. Larsen is an 82 y/o AAF with recurrent idiopathic pancreatitis. She has been hospitalized numerous times for issues with pain control related to recurrent pancreatitis. Her last admission was from 03/03/18 to 03/28/18 and she had biliary obstruction at that time. - During that admission she underwent evaluation with ERCP (03/03/18) which noted multiple stones, migrated metal stent up into CBD, could not put plastic stent due to "kink" in current stent according to GI notes. She required PTC placement on 03/04 by IR which noted severe obstruction of the proximal common bile duct stent with very challenging recanalization requiring multiple wires and catheters. biliary stent placement. She had a repeat ERCP (03/07/18) and had to have the metal stent cleared of debris and they were able to confirm complete clearance of the stent with good emptying through the stent. She had a percutaneous cholangiogram on 03/09/18 where the external portion of biliary drain was removed and the report showed some small hyperplasia within the distal aspect of the biliary stent but there is a patent channel down to the small bowel. - Pt presented back to the ED at [facility] on 05/16/18 with continued abdominal pain that is similar to her previous pancreatitis pain. - Her labs in the ED revealed WBC count 18.2, Cr 4.56/BUN 60, Lipase 350. Her LFTs were mostly WNL with TBili 0.3, AST 17, ALT less than 6, AlkPhos 211. - CT Abd/pelvis w/o IV contrast in the ED which noted stable and grossly unremarkable follow-up CT scan of the abdomen and pelvis compared to the prior study on 04/24/18, stable tiny 2 mm nonobstructing stone right kidney, and stable 1.4 cm right renal cyst. - comgmt with GI - Case d/w GI, Dr. Schwartz (05/22/18) - HIDA scan 05/19 reviewed and reveals: Negative examination. Normal biliary kinetics; no evidence of obstruction. - Bile Acid Absorption NM 05/19/18 1. Negative examination. 2. Normal biliary kinetics; no evidence of obstruction. - Abdomen Ultrasound 05/22/18 - diffuse Elevated velocities - clinical significance of abd US (05/22) is unclear. Pt's lactic acid is WNL - d/w IR. Does NOT seem clear that pt requires any intervention - Pt's last celiac plexus block performed by Dr. Rivera (05/13/17). Pt needs to f/ u with Dr. Rivera outpt to see if pt might benefit from repeat of the procedure - Pt now with increased abdominal pain & increasing lipase (05/22) - On previous visits pt's pancreatis improved with IV steroids thought to be d/ t inflammatory component - Will hold continuous TF with Jevity 1.5 - IVFs - start solumedrol 40mg IV BID - prn pain control with [place] - zofran prn - GI is considering ERCP with stent replacement/ removal vs double stenting in am unless indicated otherwise - await ct abdomen/pelvis - Rifaximin/Creon - Start Actigall/Zosyn/Falgyl pending stools c diff. Consider stopping zosyn/ flagyl Wednesday - additional blood work ordered by GI is pending - following current admission consider - repeat outpt consult with Dr. Rivera pain mgmt, re: repeat celiac block? - referral to tertiary center-she was evaluated in the past at [facility] for same issues , - [facility] per pt's daughter for symptom mgmt? - Supportive care - DVT prophylaxis with SCDs (2) Acute on chronic kidney failure Code(s): N17.9 - Acute kidney failure, unspecified; N18.9 - Chronic kidney disease, unspecified Status: Acute Plan: - Pt with baseline stage 3 CKD, pt follows with Dr. Melara - Her labs at admission with a noted acute worsening of her baseline CKD. - Labs on 04/24 noted Cr is 3.51/BUN 38. Repeat labs on 04/30 with Cr 3.72/BUN 35 , GFR 14. - Labs at admission noted Cr 4.56/BUN 60 - Await consult from Nephrology - Repeat labs - Cr 4.08/BUN 51 (/) - Cr 3.74/BUN 46 (/) - Cr 3.44/BUN 43 (/) - cr 3.17/BUN 40 (/6) - Cr 3.00 (/8) - continue IVFs - Avoid nephrotoxic agents (3) HTN (hypertension) Code(s): I10 - Essential (primary) hypertension Status: Acute Plan: - Cont. home meds - Monitor (4) GERD (gastroesophageal reflux disease) Code(s): K21.9 - Gastro-esophageal reflux disease without esophagitis Status: Acute Plan: - PPI (5) Anemia Code(s): D64.9 - Anemia, unspecified Status: Chronic Plan: - Pt with an acute decrease in her chronic anemia on 05/17 with Hgb down to 7.6 - > 11.3 (05/18) - No noted active bleeding - s/p Transfusion 2 units PRBCs 05/17 - Hg stable (3) HTN (hypertension) Code(s): I10 - Essential (primary) hypertension Status: Acute Plan: - Cont. home meds - Monitor (4) Gastroparesis Code(s): K31.84 - Gastroparesis Status: Acute (5) Anemia Code(s): D64.9 - Anemia, unspecified Status: Chronic Plan: - Pt with an acute decrease in her chronic anemia on 05/17 with Hgb down to 7.6 - No noted active bleeding - Transfuse 2 units PRBCs with Lasix 20mg IV in between the two units - Repeat labs in AM - Plan Patient examined. Assessment and plan formulated with Olga PETERSON I agree with the above. (2) Idiopathic pancreatitis Qualifiers: Chronicity: chronic Qualified Code(s): K86.1 - Other chronic pancreatitis (5) Anemia Qualifiers: Anemia type: unspecified type Qualified Code(s): D64.9 - Anemia, unspecified
[2018-05-31 14:13] LABS: Baso # (Auto) 0.1 th/mm3 (0.0-0.2); Baso % (Auto) 0.5 % (0.0-2.0); Eos # (Auto) 0.3 th/mm3 (0.0-0.4); Eos % (Auto) 2.3 % (0.0-4.0); Hematocrit 33.1 % (35.0-46.0); Hemoglobin 10.6 gm/dL (11.6-15.3); Lymph % (Auto) 7.2 % (9.0-44.0); Mean Corpuscular HGB Conc 31.9 % (32.0-36.0); Mean Corpuscular Hemoglobin 27.5 pg (27.0-34.0); Mean Corpuscular Volume 86.3 fL (80.0-100.0); Mean Platelet Volume 9.4 fL (7.0-11.0); Mono # (Auto) 0.3 th/mm3 (0.0-0.9); Mono % (Auto) 2.2 % (0.0-8.0); Neut # (Auto) 12.1 th/mm3 (1.8-7.7); Neut % (Auto) 87.8 % (16.0-70.0); Platelet Count 228 th/mm3 (150-450); Red Blood Count 3.84 mil/mm3 (4.00-5.30); Red Cell Distribution Width 16.5 % (11.6-17.2); White Blood Count 13.8 th/mm3 (4.0-11.0)
[2018-05-31 14:38] LABS: Alanine Aminotransferase 13 U/L (10-53); Albumin 2.3 g/dL (3.4-5.0); Anion Gap 9 meq/L (5-15); Aspartate Aminotransferase 6 U/L (15-37); Blood Urea Nitrogen 52 mg/dL (7-18); Calcium 8.1 mg/dL (8.5-10.1); Carbon Dioxide 28.7 meq/L (21.0-32.0); Chloride 101 meq/L (98-107); Glomerular Filtration Rate 23 mL/min (>89); Glucose,Random 163 mg/dL (74-106); Potassium 4.7 meq/L (3.5-5.1); Sodium 139 meq/L (136-145)
[2018-05-31 14:40] LABS: Alkaline Phosphatase 148 U/L (45-117); Total Protein 5.8 g/dL (6.4-8.2)
[2018-05-31 15:08] LABS: Eosinophils 1 % (0-4); Lymphocytes 9 % (9-44); Monocytes 1 % (0-8); Promyelocyte 1 % (0-0); Stomatocytes 1+
[2018-05-31 15:09] LABS: Platelet Estimate Normal (Normal); Platelet Morphology Normal (Normal)
--- NOTE | 2018-05-31 15:55 | P.DIET ---
Nutritional Evaluation Type of nutrition evaluation: follow-up Nutrition consult regarding: Tube Feeding Subjective Subjective Comments: Pt taking ~25% of clear liquid diet. She requested to hold TF last night d/t abdominal pain. Pt has night time TF at home. Objective - Diagnosis Abdominal Pain - Objective % IBW: 110 (IBW = 130#) Body Weight Used for Calculations: Actual (65 kg) Energy Needs - Lower Range (kCal/kg): 25 Energy Needs - Upper Range (kCal/kg): 30 Lower Limit kCal/kg (kCals): 1,625 Upper Limit kCal/kg (kCals): 1,950 Lower Limit Protein Factor (Grams per Kg): 1.0 Upper Limit Protein Factor (Grams per Kg): 1.5 Lower Protein Needs (Protein): 65 Upper Protein Needs (Protein): 98 Dietitian Reviewed in Medical Record: Current diet, Curent medications, Intake & Output, Labs, Medical history, Tube feeding Diet Order: clear liquid Objective Comments: Hx includes anxiety, CKD, g-j tube, GERD, idiopathic pancreatitis Feeding - Current Tube Feeding Tube Feeding Product: Nepro Tube Feeding Method: Pump Tube Feeding Rate: 55 (mls/hr) Tube Feeding Route: jejunostomy Assessment Assessment: Pt is at high nutrition risk 2' to her dependence on supplemental TFing. She is s/p ERCP (05/23) d/t elevated phosphatase and abdominal pain. Current order is for Nepro @ 55 mls/hr continuous feed with clear liquid diet. To meet needs with Nepro, recommend goal rate of 40 mls/hr to provide 1728 kcals, 78 gms protein and 698 ml sof free water. RD will monitor diet advance, po intake and adjust TF recs accordingly. CBW = 68 kg. LBM was on 05/31. Recommendations: Nepro @ 40 mls/hr goal Diet as tolerated Dietitian to Monitor: Lab values, Intake & Output, Diet tolerance, Tube feeding tolerance, Weight change, PO Intake, Diet advancement, Medical course
[2018-06-01] MEDS: predniSONE 20 MG Tablet PO SCH (09:08)
[2018-06-01] MEDS: Sodium Bicarbonate 650 MG Tablet PO SCH ×2 (09:08→22:29)
[2018-06-01] MEDS: Senna/Docusate Sodium 8.6/50 MG Tablet PO SCH ×2 (09:09→22:29)
[2018-06-01] MEDS: amLODIPine 5 MG Tablet PO SCH (09:09)
[2018-06-01] MEDS: Metoprolol Tartrate 25 MG Tablet PO SCH ×2 (09:09→22:29)
[2018-06-01] MEDS: rifAXIMin 550 MG Tablet PO SCH ×2 (09:09→22:29)
[2018-06-01] MEDS: Simethicone 125 MG Chew Tablet PO SCH ×3 (09:10→17:14)
[2018-06-01] MEDS: [UNRECOGNIZED DRUG - REMARK] PO SCH ×3 (09:10→17:15)
[2018-06-01] MEDS: DRONABINOL 2.5 MG CAPSULE PO SCH (12:15)
--- NOTE | 2018-06-01 15:50 | P.DN ---
Discharge Sum: Prov - Provider Primary care physician: Hong Peterson MD Consults: 05/16/18 13:57 Consult to Nephrology Routine Consulting Provider: Does the patient have a Dial Marker who follows them?: No Preferred Nephrology Shredded Filler Hopper Feeder:: Tamiko Kennedy Reason for Consultation: a/ckd 05/16/18 19:13 Consult to Gastroenterology Routine Consulting Provider: Chula Schwartz Reason for Consultation: recurrent idiopathic pancreatitis for ERCP with stent exchange Notified:: Service Spoke with:: sheila Date Notified:: 05/16/18 Time Notified:: 19:43 Discharge Sum: Diag Discharge Sum: Summary - Date and Time Date of admission: 05/16/18 13:38 - Additional Data Attending physician: Alexander Eddy, DO
--- NOTE | 2018-06-01 15:53 | P.DS ---
Date of admission: 05/16/18 13:38 Primary care physician: Hong Peterson MD Attending physician on discharge: Alexander Eddy Anticipated date of discharge: 06/02/18 Brief History from admission: Ms. Larsen is an 82 y/o AAF with recurrent idiopathic pancreatitis. She has been hospitalized numerous times for issues with pain control related to recurrent pancreatitis. Her last admission was from 03/03/18 to 03/28/18 and she had biliary obstruction at that time. During that admission she underwent evaluation with ERCP (03/03/18) which noted multiple stones, migrated metal stent up into CBD, could not put plastic stent due to "kink" in current stent according to GI notes. She required PTC placement on 03/04 by IR which noted severe obstruction of the proximal common bile duct stent with very challenging recanalization requiring multiple wires and catheters. biliary stent placement. She had to have a repeat ERCP (03/07/18) and had to have the metal stent cleared of debris and they were able to confirm complete clearance of the stent with good emptying through the stent. She had a percutaneous cholangiogram on where the external portion of biliary drain was removed and the report showed some small hyperplasia within the distal aspect of the biliary stent but there is a patent channel down to the small bowel. Pt was seen in the ED at [facility] on 04/24/18 with abdominal pain. She had a CT Abd/ pelvis during that visit which noted portal venous stent, s/p cholecystectomy, GJ tube in place. Pts lipase was 110 at that time, Cr is 3.51/BUN 38, and WBC count 11. Pt was diagnosed with a UTI and given Keflex BID x 7 days. The urine culture noted probable contaminants. She was seen back in the ED on 04/30/18 with the same abdominal pain. Her labs at that time noted WBC count 17.1, Cr 3.72/BUN 35, GFR 14, Lipase 211. She was treated with supportive care, IVF and pain meds and improved and was discharged back to home. Pt presented back to the ED at [facility] on 05/16/18 with continued abdominal pain since her last admission per the pt but has been worse the last 3 weeks. She relates the pain to food intake which gradually worsens after eating. Pt also gets continuous TF at night. Pt has been having normal BMs. Denies any fevers or chills. She reports that the pain is the same pain that she has had previously with her pancreatitis. She has been trying to use [place] at night for the pain but its not helping. Her labs in the ED revealed WBC count 18.2, Cr 4.56/BUN 60, Lipase 350. Her LFTs were mostly WNL with TBili 0.3, AST 17, ALT less than 6, AlkPhos 211. She had a CT Abd/pelvis w/o IV contrast in the ED which noted stable and grossly unremarkable follow-up CT scan of the abdomen and pelvis compared to the prior study on 04/24/18, stable tiny 2 mm nonobstructing stone right kidney, and stable 1.4 cm right renal cyst. Pt reports that she was seen as an outpt by GI and was being set up for a repeat ERCP for stent exchange. Her UA was abnormal in the ED and he was given Rocephin. DS: Diagnosis - Discharge Diagnosis (1) Abdominal pain Status: Acute (2) Idiopathic pancreatitis Status: Chronic (3) HTN (hypertension) Status: Acute (4) Gastroparesis Status: Acute (5) Anemia Status: Chronic DS: Medications - Discharge Medications Prescriptions: amlodipine [Norvasc] 5 mg PO DAILY 30 Days #30 tab duloxetine [Cymbalta] 20 mg PO DAILY 30 Days #30 cap arlaan-vcllxeoo-nlvymps [Creon] 1 cap PO TID 30 Days #90 cap nut.tx.imp.renal fxn,lac-reduc [Nepro Carb Steady] 40 ml/hr FEEDING TUBE DIRECTED 30 Days ml prednisone See Taper PO DAILY #25 tab simethicone [Gas Relief] 125 mg PO TIDAC 30 Days tab ursodiol [Actigall] 300 mg PO BID 30 Days #60 cap water for injection, sterile 200 ml G-TUBE Q6HR 30 Days ml DS: Summary Hospital Course: (1) Abdominal pain Code(s): R10.9 - Unspecified abdominal pain Status: Acute Plan: (1) Idiopathic pancreatitis Code(s): K85.00 - Idiopathic acute pancreatitis without necrosis or infection Status: Chronic Plan: - Ms. Larsen is an 82 y/o AAF with recurrent idiopathic pancreatitis. She has been hospitalized numerous times for issues with pain control related to recurrent pancreatitis. Her last admission was from 03/03/18 to 03/28/18 and she had biliary obstruction at that time. - During that admission she underwent evaluation with ERCP (03/03/18) which noted multiple stones, migrated metal stent up into CBD, could not put plastic stent due to "kink" in current stent according to GI notes. She required PTC placement on 03/04 by IR which noted severe obstruction of the proximal common bile duct stent with very challenging recanalization requiring multiple wires and catheters. biliary stent placement. She had to have a repeat ERCP (03/07/18) and had to have the metal stent cleared of debris and they were able to confirm complete clearance of the stent with good emptying through the stent. She had a percutaneous cholangiogram on 03/09/18 where the external portion of biliary drain was removed and the report showed some small hyperplasia within the distal aspect of the biliary stent but there is a patent channel down to the small bowel. - Pt presented back to the ED at [facility] on 05/16/18 with continued abdominal pain that is similar to her previous pancreatitis pain. - Her labs in the ED revealed WBC count 18.2, Cr 4.56/BUN 60, Lipase 350. Her LFTs were mostly WNL with TBili 0.3, AST 17, ALT less than 6, AlkPhos 211. - CT Abd/pelvis w/o IV contrast in the ED which noted stable and grossly unremarkable follow-up CT scan of the abdomen and pelvis compared to the prior study on 04/24/18, stable tiny 2 mm nonobstructing stone right kidney, and stable 1.4 cm right renal cyst. - comgmt with GI - Case d/w GI, Dr. Schwartz (05/18/18) - HIDA scan 05/19 reviewed and reveals: Negative examination. Normal biliary kinetics; no evidence of obstruction. - Pt's last celiac plexus block performed by Dr. Rivera (05/13/17). Pt needs to f/u with Dr. Rivera outpt to see if pt might benefit from repeat of the procedure -s/p ercp 05/23 with balloon sweep of stone fragments/debris from metal stent and placement of new stent - GJ tube exchange 710 with IR -mesenteric angio with IR 05/24. patent vessels. - Pain control PRN with [place] PRN - zofran as need for N/V - obtain repeat CBC, CMP, Mag, lipase - Nepro TF at 40ml/hour - continue slow prednisone taper. - Discharge to home in AM - see discharge orders - Pt to f/u with PCP, Dr. Peterson, in 1 week - Pt to f/u with GI in 2 weeks (2) Acute on chronic kidney failure Code(s): N17.9 - Acute kidney failure, unspecified; N18.9 - Chronic kidney disease, unspecified Status: Acute Plan: - Pt with baseline stage 3 CKD, pt follows with Dr. Melara - Her labs at admission with a noted acute worsening of her baseline CKD. - Labs on 04/24 noted Cr is 3.51/BUN 38. Repeat labs on 04/30 with Cr 3.72/BUN 35 , GFR 14. - Labs at admission noted Cr 4.56/BUN 60 - comgmt with Nephrology - Repeat labs - Cr 4.08/BUN 51 (05/17) - Cr 3.74/BUN 46 (05/18) - Cr 3.44/BUN 43 (05/19) - cr 3.17/BUN 40 (05/20) - Cr 2.44/BUN 54 (05/30) - Avoid nephrotoxic agents (3) HTN (hypertension) Code(s): I10 - Essential (primary) hypertension Status: Acute Plan: - Cont. home meds - Monitor (4) GERD (gastroesophageal reflux disease) Code(s): K21.9 - Gastro-esophageal reflux disease without esophagitis Status: Acute Plan: - PPI (5) Anemia Code(s): D64.9 - Anemia, unspecified Status: Chronic Plan: - Pt with an acute decrease in her chronic anemia on 05/17 with Hgb down to 7.6 - > 11.3 (05/18) - No noted active bleeding - s/p Transfuse 2 units PRBCs with Lasix 20mg IV in between the two units - Hg 10.5/HCT 32.9 (05/30) - Time Spent with Patient Total time spent providing and/or coordinating discharge services: Greater than 30 minutes Exam Vital signs: Vital Signs 05/31/18 16:00 05/31/18 20:00 05/31/18 20:10 Temperature 98.2 F 98.2 F Pulse Rate 66 70 Respiratory Rate 20 18 18 Blood Pressure 122/61 115/65 Pulse Oximetry 97 97 06/01/18 00:00 06/01/18 04:00 06/01/18 08:00 Temperature 98.3 F 97.9 F 98.3 F Pulse Rate 77 76 76 Respiratory Rate 18 18 18 Blood Pressure 130/70 125/60 133/68 Pulse Oximetry 98 95 98 06/01/18 12:00 Temperature 98 F Pulse Rate 69 Respiratory Rate 17 Blood Pressure 124/70 Pulse Oximetry 99 Intake & Output 05/31/18 06/01/18 06/01/18 18:59 06:59 18:59 Intake Total 400 / 400 Balance 400 / 400 Intake: Water Bolus Amount 400 / 400 Other: # Voids 3 Date of Last Bowel Movement 05/31/18 Narrative: GENERAL: This is a well-nourished, well-developed patient, in no apparent distress. CARDIOVASCULAR: Regular rate and rhythm without murmurs, gallops, or rubs. RESPIRATORY: Clear to auscultation. Breath sounds equal bilaterally. No wheezes , rales, or rhonchi. GASTROINTESTINAL: Abdomen soft, non-tender, nondistended. Normal active bowel sounds MUSCULOSKELETAL: Extremities without clubbing, cyanosis, or edema. NEURO: Alert & Oriented x4 to person, place, time, situation. Moves all ext x4 Results Procedures completed during hospitalization: - GJ tube exchange 710 with IR - ercp 05/23 with balloon sweep of stone fragments/debris from metal stent and placement of new stent - Impressions ITS Impressions Chest X-Ray 05/16/18 07:37 CONCLUSION: 1. No acute abnormality or significant interval change. Bile Acid Absorption NM 05/19/18 00:00 CONCLUSION: 1. Negative examination. 2. Normal biliary kinetics; no evidence of obstruction. Abdomen Ultrasound 05/22/18 00:00 CONCLUSION: 1. Elevated velocities as above. Abdomen/Pelvis CT 05/22/18 00:00 CONCLUSION: 1. No loculated fluid within the abdomen and pelvis to suggest abscess. No bowel obstruction. 2. Gastrojejunostomy tube present. There is also a biliary stent. Previous cholecystectomy. 3. Small bilateral pleural effusions. 4. 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 GI Procedure 05/23/18 00:00 CONCLUSION: Status post placement of an internal biliary stent. Mesenteric Arteriogram 05/24/18 00:00 CONCLUSION: 1. Widely patent celiac and SMA. No angiographic evidence to suggest mesenteric ischemia. Tube Change 05/24/18 00:00 CONCLUSION: 1. Uncomplicated gastrojejunostomy tube exchange as above. Discharge Plan - Discharge Disposition Patient Disposition: /Home Health Service - Discharge Condition Condition: Stable - Discharge Order Discharge Orders: Discharge Order (Routine); Ordered 06/02/18 Ordered By: Alexander Eddy - Discharge Details Anticipated Discharge Date: 06/02/18 - Physicians Team Primary Care Provider: Hong Peterson Attending Provider: Alexander Eddy Other Providers: Chula Schwartz MD ; Samson Kennedy MD
[2018-06-02] MEDS: Simethicone 125 MG Chew Tablet PO SCH (10:23)
[2018-06-02] MEDS: Sodium Bicarbonate 650 MG Tablet PO SCH (10:24)
[2018-06-02] MEDS: Metoprolol Tartrate 25 MG Tablet PO SCH (10:24)
[2018-06-02] MEDS: amLODIPine 5 MG Tablet PO SCH (10:24)
[2018-06-02] MEDS: Senna/Docusate Sodium 8.6/50 MG Tablet PO SCH (10:24)
[2018-06-02] MEDS: predniSONE 20 MG Tablet PO SCH (10:24)
[2018-06-02] MEDS: [UNRECOGNIZED DRUG - REMARK] PO SCH (10:25)
[2018-06-02] MEDS: rifAXIMin 550 MG Tablet PO SCH (10:25)
== END 2018-06-02 13:37 | disposition home health service (06) ==
LOC: NEPC 06:52 → NEDA 13:38 → N05 15:44
PROVIDERS: ADMIT Hospitalist; ATTEND Hospitalist

== ENCOUNTER 2018-06-29 19:47 | Inpatient (IN) ==
[2018-06-29] MEDS ORDERED: Sod Chloride 0.9% Inj 1,000 ML IV.SIG ONE ×3 (20:27→22:25)
[2018-06-29] MEDS ORDERED: Famotidine PF Inj 20 MG/2 ML Vial IV.PUSH ONE (20:27)
[2018-06-29] MEDS ORDERED: Morphine Inj 4 MG/ML Vial IV.PUSH ONE ×2 (20:27→21:43)
--- NOTE | 2018-06-29 20:35 | ED ---
HPI General Chief Complaint: Abdominal Pain Stated Complaint: Abd pain Time Seen by Provider: 06/29/18 20:16 Source: patient Mode of arrival: ambulatory Limitations: no limitations History of Present Illness HPI narrative: The patient is a 82-year-old -[place] female who presents emergency department for abdominal pain. The patient is a 3 day history of epigastric abdominal pain that radiates into the chest and his associate with nausea and vomiting. The patient also notes diarrhea, however, family states the diarrhea secondary to tube feedings. The patient saw her cook pressure yesterday, Dr. Chavez, who advised her to come to the emergency department if her symptoms persisted. The patient does have a history of chronic pancreatitis, has had a previous cholecystectomy. She denies any alcohol use. The patient has been doing tube feedings, does note decreased appetite and dry heaves over the last 3 days. She denies any dysuria , frequency, or urgency. Symptoms are moderate and similar to previous pancreatitis exacerbations. The patient is followed by her primary physician, Dr. Peterson. MD complaint: abdominal pain Onset (ago): day(s) Pain Consistency: constant Location: epigastric Severity: severe Severity scale (1-10): 8 Quality: stabbing and sharp Radiation: LUQ, RUQ, LLQ and RLQ Relieving factors: nothing Exacerbating factors: nothing Context: history of similar episodes Associated symptoms: nausea, vomiting, diarrhea and anorexia Related Data Home Medications Medication Instructions Recorded Confirmed hydrocodone-acetaminophen [[place]] 1 tab PO Q4H PRN 05/16/18 05/16/18 [id number] [Creon] 1 tab PO TIDPC 05/16/18 05/16/18 magnesium hydroxide [[place]ley Milk 311 mg PO QID PRN 05/16/18 05/16/18 of Magnesia] meclizine 25 mg PO DAILY PRN 05/16/18 05/16/18 metoprolol tartrate 25 mg PO BID 05/16/18 05/16/18 pantoprazole 40 mg PO BID 05/16/18 05/16/18 sucralfate 1 g PO TID 05/16/18 05/16/18 Previous Rx's Medication Instructions Recorded amlodipine [Norvasc] 5 mg PO DAILY 30 Days #30 tab 06/01/18 duloxetine [Cymbalta] 20 mg PO DAILY 30 Days #30 cap 06/01/18 [id number] [Creon] 1 cap PO TID 30 Days #90 cap 06/01/18 nut.tx.imp.renal fxn,lac-reduc 40 ml/hr FEEDING TUBE DIRECTED 06/01/18 [N[place]ro Carb Steady] 30 Days ml prednisone See Taper PO DAILY #25 tab 06/01/18 simethicone [Gas Relief] 125 mg PO TIDAC 30 Days tab 06/01/18 ursodiol [Actigall] 300 mg PO BID 30 Days #60 cap 06/01/18 water for injection, sterile 200 ml G-TUBE Q6HR 30 Days ml 06/01/18 Allergies Allergy/AdvReac Type Severity Reaction Status Date / Time No Known Allergies Allergy Unverified 05/16/18 07:25 Review of Systems ROS: all other systems reviewed are negative [facility] Family History Family History Other Family history non-contributory Social History Social History Substance History: No History of Abuse Second Hand Smoke Exposure: No Smoking Status: Never smoker How Often Do You Have a Drink Containing Alcohol: Never Immunization History Tetanus Immunization: Unsure Hx Influenza Vaccine This Season: No Exam Narrative Exam Narrative: GENERAL: Awake, alert, pleasant 82-year-old female appears her stated age and appears in moderate discomfort. SKIN: Focused skin assessment warm/dry. HEAD: Atraumatic. Normocephalic. EYES: No scleral icterus noted. ENT: No nasal bleeding or discharge. Slightly dry mucous membranes. NECK: Trachea midline. No JVD. CARDIOVASCULAR: Regular, tachycardic with a heart rate in the 120s. RESPIRATORY: No accessory muscle use. Clear to auscultation. Breath sounds equal bilaterally. GASTROINTESTINAL: Abdomen soft, diffuse tenderness. No guarding rigidity. Feeding tube in place. MUSCULOSKELETAL: No obvious deformities. No clubbing. No cyanosis. No edema. NEUROLOGICAL: Awake and alert. No obvious cranial nerve deficits. Motor grossly within normal limits. Normal speech. PSYCHIATRIC: Appropriate mood and affect; insight and judgment normal. Course Consultations Consultation #1: I discussed the patient with Dr. Peterson who agrees with admission to Dr. Eddy. Time: 22:26 Initial Documented Vital Signs Temperature 97.9 F 06/29/18 20:08 Pulse Rate 131 H 06/29/18 20:08 Respiratory Rate 20 06/29/18 20:08 Blood Pressure 70/49 L 06/29/18 20:08 Pulse Oximetry 99 06/29/18 20:08 Last Documented Vital Signs Temperature 97.9 F 06/29/18 20:08 Pulse Rate 104 H 06/29/18 21:39 Respiratory Rate 16 06/29/18 22:22 Blood Pressure 122/58 L 06/29/18 21:39 Pulse Oximetry 95 06/29/18 21:39 Medical Decision Making MDM Narrative Medical decision making narrative: IV was established, labs are drawn and sent, and the patient was placed on cardiac telemetry monitoring and continuous pulse oximetry monitoring. EKG was ordered and interpreted. Chest x-ray was obtained. The patient was administered morphine, Zofran, IV fluids, and Pepcid. CT of the abdomen and pelvis was obtained. The CT of the abdomen and pelvis reveals inflammatory process in the right lower lung, otherwise unremarkable intra-abdominal. White count was elevated at 30,000, patient may have right lower lobe pneumonia with her abdominal pain. The patient's lactic acid was elevated at 2.4. The patient was administered cefepime and Zithromax to cover for healthcare acquired pneumonia as the patient was hospitalized last month. I discussed the patient with Dr. Peterson who agrees with admission. The patient does meet Sirs criteria with heart rate greater than 100 , white count of 30,000, lactic acid 2.4. Therefore, the patient will be admitted. Medical Screen Exam Complete: Yes Emergency Medical Condition: Yes Differential Diagnosis Differential Diagnosis: Differential diagnosis includes gastritis, peptic ulcer disease, pancreatitis, mesenteric ischemia, porphyria, chronic abdominal pain, AAA, retained biliary stone, intractable nausea and vomiting. Medical Records Medical records reviewed: Yes I reviewed the patient's medical records. I reviewed the patient's EMR, she was admitted to the hospital in May 2018 and underwent workup for possible mesenteric ischemia with arteriogram of the abdomen and CT of the abdomen and pelvis. Lab Data Lab results reviewed: Yes I reviewed the patient's lab results. Lab results narrative: Patient's white count is 30.1 with increased neutrophils. Patient's BUN is also elevated at 73 with creatinine of 5.57. Result diagrams: 06/29/18 20:35 06/29/18 20:35 Lab Results 06/29/18 06/29/18 06/29/18 Range/Units 20:35 20:35 20:35 WBC 30.1 H (4.0-11.0) th/mm3 RBC 3.08 L (4.00-5.30) mil/mm3 Hgb 8.7 L (11.6-15.3) gm/dL Hct 27.5 L (35.0-46.0) % MCV 89.4 (80.0-100.0) fL MCH 28.1 (27.0-34.0) pg MCHC 31.4 L (32.0-36.0) % RDW 19.0 H (11.6-17.2) % Plt Count 490 H D (150-450) th/mm3 MPV 8.0 (7.0-11.0) fL Prelim Diff (Auto) Slide review pending Neut % (Auto) 92.5 H (16.0-70.0) % Lymph % (Auto) 4.0 L (9.0-44.0) % Howard % (Auto) 2.5 (0.0-8.0) % Eos % (Auto) 0.6 (0.0-4.0) % Baso % (Auto) 0.4 (0.0-2.0) % Neut # (Auto) 27.9 H (1.8-7.7) th/mm3 Lymph # (Auto) 1.2 (1.0-4.8) th/mm3 Howard # (Auto) 0.7 (0.0-0.9) th/mm3 Eos # (Auto) 0.2 (0.0-0.4) th/mm3 Baso # (Auto) 0.1 (0.0-0.2) th/mm3 WBC Differential Manual diff final Seg Neuts % (Manual) 91 H (16-70) % Band Neuts % (Manual) 5 (0-6) % Lymphocytes % (Manual) 1 L (9-44) % Eosinophils % (Manual) 1 (0-4) % Metamyelocytes % (Man) 2 H (0-1) % Abs Neuts (Manual) 29.5 H (1.8-7.7) th/mm3 Differential Comment . Toxic Granulation 3+ H (None) Toxic Vacuolation Present H (None) Platelet Estimate High H (Normal) Platelet Morphology Normal (Normal) Spherocytes Occ H (None) Sodium 136 (136-145) meq/L Potassium 4.0 (3.5-5.1) meq/L Chloride 102 (98-107) meq/L Carbon Dioxide 20.2 L (21.0-32.0) meq/L Anion Gap 14 (5-15) meq/L BUN 73 H (7-18) mg/dL Creatinine 5.57 H (0.50-1.00) mg/dL Estimated GFR 9 L (>89) mL/min Random Glucose 107 H (74-106) mg/dL Lactic Acid 2.4 H (0.4-2.0) mmol/L Calcium 9.1 (8.5-10.1) mg/dL Total Bilirubin 0.3 (0.2-1.0) mg/dL AST 15 (15-37) U/L ALT 11 (10-53) U/L Alkaline Phosphatase 139 H (45-117) U/L Total Creatine Kinase 28 (26-192) U/L Troponin I Less than 0.02 L (0.02-0.05) ng/mL Total Protein 7.2 (6.4-8.2) g/dL Albumin 1.6 L (3.4-5.0) g/dL Lipase 234 (73-393) U/L Imaging Data Attestation: I personally reviewed and interpreted this imaging study as follows : My impression: Atelectasis and/or infiltrate right lower lobe Radiologist's impression: Abdomen/Pelvis CT 06/29/18 20:27 CONCLUSION: 1. Biliary stent with interval Silastic stent. Air in the left hepatic ducts. 2. I don't see an etiology for the patient's right-sided abdominal pain. Lack of intravenous and oral contrast makes detection of subtle abnormalities difficult 3. . Inflammatory processes such as pyonephritis cannot be excluded. Chest X-Ray 06/29/18 20:27 CONCLUSION: Linear areas of atelectasis or scarring. These are stable. No new or acute abnormality is seen. ECG Data EKG Prior to Arrival: No Attestation: I personally reviewed and interpreted this ECG as follows: Interpretation: EKG reveals sinus tachycardia with a heart rate of 117. Nonspecific T-wave changes. QTc 498 ms. Discharge Plan Discharge Disposition Patient Disposition: 30 Still Patient Discharge Condition Condition: Stable Discharge Details Diagnosis: Pneumonia, Acute on chronic kidney failure, SIRS (systemic inflammatory response syndrome) Physicians Team ED Provider: Mayank Garcia Primary Care Provider: Hong Peterson Attending Provider: Alexander Eddy Discharge Interventions Interventions: Vital Signs Last Done: 06/29/18 21:39 Status ED Status: Admitted Patient
--- NOTE | 2018-06-29 20:58 | CT ---
EXAM DATE: 06/29/2018 8:47 PM EDT AGE/SEX: 82 years / Female INDICATIONS: Right sided abdominal pain for 3 days. CLINICAL DATA: This is the patient's initial encounter. Patient reports that signs and symptoms have been present for 1 day and indicates a pain score of 5/10. MEDICAL/SURGICAL HISTORY: Renal disease. Gastroesophageal reflux disease. Pancreatitis. Hype rtension. Cholecystectomy. GJ tube RADIATION DOSE: 6.64 CTDI (mGy) COMPARISON: [facility] – [place], [place] ABDOMEN & PELVIS W/O CONTRAST, 05/22/2018. . TECHNIQUE: Multiple contiguous axial images were obtained through the abdomen. Images were obtained using multiple row detector helical technique. Using automated exposure control and adjustment of the mA and/or kV according to patient size, radiation dose was kept as low as reasonably achievable to o btain optimal diagnostic quality images. DICOM format image data is available electronically for rev iew and comparison. FINDINGS: Minimal parenchymal changes right lung anteriorly suspicious for inflammatory process Bili stent with internal Silastic stent is evident some biliary air noted. GJ tube is evident. Liver is free of focal defects Spleen unremarkable. Prominent uncinate process. Right kidney: Nonobstructing obstructing 2 mm stone right kidney with upper pole apparent cyst measur ing 2.9 cm. Left kidney: No mass or stone No retroperitoneal adenopathy Small 2 similar cystic mass left adnexa region Bladder decompressed Abdominal guajardo intact There is no free air There are no inflammatory changes evident Extensive degenerative changes lower lumbar spine. CONCLUSION: 1. Biliary stent with interval Silastic stent. Air in the left hepatic ducts. 2. I don't see an etiology for the patient's right-sided abdominal pain. Lack of intravenous and ora l contrast makes detection of subtle abnormalities difficult 3. . Inflammatory processes such as pyonephritis cannot be excluded. Electronically signed by: Jamie Tabor MD 06/29/2018 8:56 PM EDT
[2018-06-29 21:22] LABS: Baso # (Auto) 0.1 th/mm3 (0.0-0.2); Baso % (Auto) 0.4 % (0.0-2.0); Eos # (Auto) 0.2 th/mm3 (0.0-0.4); Eos % (Auto) 0.6 % (0.0-4.0); Hematocrit 27.5 % (35.0-46.0); Hemoglobin 8.7 gm/dL (11.6-15.3); Lymph # (Auto) 1.2 th/mm3 (1.0-4.8); Mean Corpuscular HGB Conc 31.4 % (32.0-36.0); Mean Corpuscular Hemoglobin 28.1 pg (27.0-34.0); Mean Corpuscular Volume 89.4 fL (80.0-100.0); Mono # (Auto) 0.7 th/mm3 (0.0-0.9); Mono % (Auto) 2.5 % (0.0-8.0); Neut # (Auto) 27.9 th/mm3 (1.8-7.7); Neut % (Auto) 92.5 % (16.0-70.0); Platelet Count 490 th/mm3 (150-450); Red Blood Count 3.08 mil/mm3 (4.00-5.30); White Blood Count 30.1 th/mm3 (4.0-11.0)
[2018-06-29 21:40] LABS: Alanine Aminotransferase 11 U/L (10-53)
--- NOTE | 2018-06-29 21:43 | XR ---
EXAM DATE: 06/29/2018 9:15 PM EDT AGE/SEX: 82 years / Female INDICATIONS: Short of breath. CLINICAL DATA: This is the patient's initial encounter. Patient reports that signs and symptoms have been present for 1 day and indicates a pain score of 0/10. MEDICAL/SURGICAL HISTORY: None. None. COMPARISON: [facility] [place] 1[place] SINGLE AP, 05/16/2018. . FINDINGS: The heart size is normal. There is mild increased linear density at the left base and in the right pe rihilar region. The costophrenic angles are clear. Clips are seen in the right upper quadrant presuma gilbert from prior cholecystectomy. There appears to be a biliary stent in place. CONCLUSION: Linear areas of atelectasis or scarring. These are stable. No new or acute abnormality is seen. Electronically signed by: Luis E oNrth MD 06/29/2018 9:42 PM EDT
[2018-06-29 21:49] LABS: Alkaline Phosphatase 139 U/L (45-117); Anion Gap 14 meq/L (5-15); Aspartate Aminotransferase 15 U/L (15-37); Blood Urea Nitrogen 73 mg/dL (7-18); Calcium 9.1 mg/dL (8.5-10.1); Carbon Dioxide 20.2 meq/L (21.0-32.0); Chloride 102 meq/L (98-107); Glomerular Filtration Rate 9 mL/min (>89); Glucose,Random 107 mg/dL (74-106); Lipase 234 U/L (73-393); Sodium 136 meq/L (136-145); Total Protein 7.2 g/dL (6.4-8.2)
[2018-06-29 21:58] LABS: Eosinophils 1 % (0-4); Lymphocytes 1 % (9-44); Metamyelocytes 2 % (0-1); Toxic Granulation 3+; Toxic Vacuolation Present
[2018-06-29 21:59] LABS: Platelet Morphology Normal (Normal)
[2018-06-29 22:01] LABS: Spherocytes Occ
[2018-06-29 22:02] LABS: Creatine Kinase 28 U/L (26-192)
[2018-06-29] MEDS ORDERED: Azithromycin Inj 500 MG in Sodium Chlor 0.9% Inj 250 ML IV.SIG ONE (22:11)
[2018-06-29 22:12] LABS: Albumin 1.6 g/dL (3.4-5.0)
[2018-06-29 22:49] LABS: Bacteria,Urine Rare /hpf; Bilirubin,Urine Negative (Negative); Calcium Oxalate Crystals,Urine Rare /hpf; Clarity,Urine Hazy (Clear); Color,Urine Yellow (Yellw/Straw); Glucose,Urine (UA) Negative (Negative); Leukocyte Esterase,Urine Large (Negative); Nitrite,Urine Negative (Negative); Specific Gravity,Urine 1.012 (1.002-1.035)
--- NOTE | 2018-06-29 23:18 | P.HP ---
History of Present Illness Service: [facility] Primary Care Physician: Hong Peterson MD Chief Complaint: Recurrent abdominal pain History of Present Illness: HPI narrative: The patient is a 82-year-old -[place] female who presents emergency department for abdominal pain. The patient is a 3 day history of epigastric abdominal pain that radiates into the chest and his associate with nausea and vomiting. The patient also notes diarrhea, however, family states the diarrhea secondary to tube feedings. The patient saw her crop ranch hand yesterday, Dr. Chavez, who advised her to come to the emergency department if her symptoms persisted. The patient does have a history of chronic pancreatitis, has had a previous cholecystectomy. She denies any alcohol use. The patient has been doing tube feedings, does note decreased appetite and dry heaves over the last 3 days. She denies any dysuria , frequency, or urgency. Symptoms are moderate and similar to previous pancreatitis exacerbations. Patient has a history of recurrent idiopathic pancreatitis, with numerous admissions to hospital with pain related problems due to her recurrent pancreatitis. Last admitted approximately 3 weeks ago prior to that was in from February until March at which time she had biliary obstruction during that admission she underwent an ERCP which noted multiple stone, metal stent was placed in the common bile duct unable to put a plastic stent due to kink in the current stent according to GI. Patient required PTC placement in February by interventional radiology which noted obstruction of the proximal common bile duct stent and difficult recannulization. Repeat ERCP was also done clearing of debris. Patient also underwent a cholangiogram in February 2018 and was admitted in May with recurrent pancreatitis also note she had acute renal failure on chronic renal failure and had elevated WBC count as well ask at that time on last admission her creatinine at discharge was in the 2.32.4 range 5 and an evaluation in the ER today she again has a WBC count of 30 ,000 she may have a slight pneumonia on chest x-ray she also has acute on chronic renal failure again and will be admitted for further evaluation does meet SIRS criteria. - Diagnosis (1) Idiopathic pancreatitis (2) Acute on chronic kidney failure (3) Pneumonia (4) SIRS (systemic inflammatory response syndrome) (5) Acute UTI Inpatient Certification: I certify that the inpatient services were ordered in accordance with Medicare regulations governing the order. This includes certification that hospital inpatient services are reasonable and necessary and in the case of services not specified as inpatient-only under 42 CFR 419.22(n), that they are appropriately provided as inpatient services in accordance to with the 2-midnight benchmark under 43 CFR 412.3(e) Review of Systems Constitutional: Reports fatigue, Reports lack of energy, Reports weakness Gastrointestinal: Reports abdominal pain, Reports loose stools, Reports nausea, Reports vomiting Neurologic: Reports unsteadiness, Reports weakness PMFSH - History History Provided By: Patient, Family Member - Medical History Medical History: Medical History (Last Reviewed 06/29/18 @ 20:11 by Fide Galeana) Anxiety CKD (chronic kidney disease) stage 3, GFR 30-59 ml/min Encounter for gastrojejunal (GJ) tube placement GERD (gastroesophageal reflux disease) Hypertension Idiopathic pancreatitis Pancreatitis - Surgical History Surgical History: Surgical History (Last Reviewed 06/29/18 @ 20:11 by Fide Galeana) History of total left knee replacement (TKR) Hx of cholecystectomy S/P ERCP - Family History Family History: Family History (Last Updated 05/16/18 @ 15:17 by SUSHIL Obregon) Other Family history non-contributory - Tobacco History Second Hand Smoke Exposure: No Smoking Status: Never smoker - Alcohol History How Often Do You Have a Drink Containing Alcohol: Never - Substance Use History Substance History: No History of Abuse - Immunization History Tetanus Immunization: Unsure Hx Influenza Vaccine This Season: No Medications and Allergies Active Medications: Active Medications Azithromycin 500 mg/ Sodium (Chloride) 250 mls @ 250 mls/hr IV.SIG ONCE ONE Stop: 06/29/18 23:10 Last Admin: 06/29/18 22:58 Dose: 250 mls/hr Sodium Chloride (Ns Flush) 2 ml IV.FLUSH PRN PRN PRN Reason: FLUSH AFTER USING IV ACCESS Allergies Allergy/AdvReac Type Severity Reaction Status Date / Time No Known Allergies Allergy Unverified 05/16/18 07:25 Home Medications Medication Instructions Recorded Confirmed Type hydrocodone-acetaminophen [Lavallette] 1 tab PO Q4H PRN 05/16/18 05/16/18 History [id number] [Creon] 1 tab PO TIDPC 05/16/18 05/16/18 History magnesium hydroxide [Presley Milk 311 mg PO QID PRN 05/16/18 05/16/18 History of Magnesia] meclizine 25 mg PO DAILY PRN 05/16/18 05/16/18 History metoprolol tartrate 25 mg PO BID 05/16/18 05/16/18 History pantoprazole 40 mg PO BID 05/16/18 05/16/18 History sucralfate 1 g PO TID 05/16/18 05/16/18 History Exam Vital signs: Vital Signs 06/29/18 20:08 06/29/18 20:23 06/29/18 20:31 Temperature 97.9 F Pulse Rate 131 H 121 H Respiratory Rate 20 16 Blood Pressure 70/49 L 120/59 L Pulse Oximetry 99 97 97 06/29/18 21:00 06/29/18 21:32 06/29/18 21:39 Temperature Pulse Rate 115 H 104 H Respiratory Rate 16 16 16 Blood Pressure 122/58 L Pulse Oximetry 97 95 06/29/18 22:22 Temperature Pulse Rate Respiratory Rate 16 Blood Pressure Pulse Oximetry Intake & Output 06/29/18 06/29/18 06/30/18 06:59 18:59 06:59 Weight 62.596 kg Narrative: GENERAL: SKIN: Warm and dry. poor turgor HEAD: Atraumatic. Normocephalic. EYES: Pupils equal and round. No scleral icterus. No injection or drainage. ENT: No nasal bleeding or discharge. Mucous membranes pink and moist. NECK: Trachea midline. No JVD. CARDIOVASCULAR: Regular rate and rhythm. RESPIRATORY: No accessory muscle use. Clear to auscultation. Breath sounds equal bilaterally. GASTROINTESTINAL: Abdomen mild distension with pain all quadrants on direct palpation no rebound. MUSCULOSKELETAL: Extremities without clubbing, cyanosis, or edema. No obvious deformities. NEUROLOGICAL: Awake and alert. No obvious cranial nerve deficits. Motor grossly within normal limits. Five out of 5 muscle strength in the arms and legs. Normal speech. PSYCHIATRIC: Appropriate mood and affect; insight and judgment normal. Results - Labs CBC & Chem 7: 06/29/18 20:35 06/29/18 20:35 Labs: Laboratory Results - last 24 hr 06/29/18 06/29/18 06/29/18 20:35 20:35 20:35 WBC 30.1 H RBC 3.08 L Hgb 8.7 L Hct 27.5 L MCV 89.4 MCH 28.1 MCHC 31.4 L RDW 19.0 H Plt Count 490 H D MPV 8.0 Prelim Diff (Auto) Slide review pending Neut % (Auto) 92.5 H Lymph % (Auto) 4.0 L [place] % (Auto) 2.5 Eos % (Auto) 0.6 Baso % (Auto) 0.4 Neut # (Auto) 27.9 H Lymph # (Auto) 1.2 [place] # (Auto) 0.7 Eos # (Auto) 0.2 Baso # (Auto) 0.1 WBC Differential Manual diff final Seg Neuts % (Manual) 91 H Band Neuts % (Manual) 5 Lymphocytes % (Manual) 1 L Eosinophils % (Manual) 1 Metamyelocytes % (Man) 2 H Abs Neuts (Manual) 29.5 H Differential Comment . Toxic Granulation 3+ H Toxic Vacuolation Present H Platelet Estimate High H Platelet Morphology Normal Spherocytes Occ H Sodium 136 Potassium 4.0 Chloride 102 Carbon Dioxide 20.2 L Anion Gap 14 BUN 73 H Creatinine 5.57 H Estimated GFR 9 L Random Glucose 107 H Lactic Acid 2.4 H Calcium 9.1 Total Bilirubin 0.3 AST 15 ALT 11 Alkaline Phosphatase 139 H Total Creatine Kinase 28 Troponin I Less than 0.02 L Total Protein 7.2 Albumin 1.6 L Lipase 234 Urine Color Urine Clarity Urine pH Ur Specific [place] Urine Protein Urine Glucose (UA) Urine Ketones Urine Occult Blood Urine Nitrate Urine Bilirubin Urine Urobilinogen Ur Leukocyte Esterase Urine RBC Urine WBC Urine WBC Clumps Calcium Oxalate Crystal Urine Bacteria Micro UA Comment Urine Culture Comments 06/29/18 22:00 WBC RBC Hgb Hct MCV MCH MCHC RDW Plt Count MPV Prelim Diff (Auto) Neut % (Auto) Lymph % (Auto) [place] % (Auto) Eos % (Auto) Baso % (Auto) Neut # (Auto) Lymph # (Auto) [place] # (Auto) Eos # (Auto) Baso # (Auto) WBC Differential Seg Neuts % (Manual) Band Neuts % (Manual) Lymphocytes % (Manual) Eosinophils % (Manual) Metamyelocytes % (Man) Abs Neuts (Manual) Differential Comment Toxic Granulation Toxic Vacuolation Platelet Estimate Platelet Morphology Spherocytes Sodium Potassium Chloride Carbon Dioxide Anion Gap BUN Creatinine Estimated GFR Random Glucose Lactic Acid Calcium Total Bilirubin AST ALT Alkaline Phosphatase Total Creatine Kinase Troponin I Total Protein Albumin Lipase Urine Color Yellow Urine Clarity Hazy H Urine pH 5.0 Ur Specific [place] 1.012 Urine Protein 30 H Urine Glucose (UA) Negative Urine Ketones Negative Urine Occult Blood Small H Urine Nitrate Negative Urine Bilirubin Negative Urine Urobilinogen Less than 2 Ur Leukocyte Esterase Large H Urine RBC 5 H Urine WBC 124 H Urine WBC Clumps Few H Calcium Oxalate Crystal Rare H Urine Bacteria Rare H Micro UA Comment Culture indicated Urine Culture Comments Culture indicated - Imaging Impressions Abdomen/Pelvis CT 06/29/18 20:27 CONCLUSION: 1. Biliary stent with interval Silastic stent. Air in the left hepatic ducts. 2. I don't see an etiology for the patient's right-sided abdominal pain. Lack of intravenous and oral contrast makes detection of subtle abnormalities difficult 3. . Inflammatory processes such as pyonephritis cannot be excluded. Chest X-Ray 06/29/18 20:27 CONCLUSION: Linear areas of atelectasis or scarring. These are stable. No new or acute abnormality is seen. Caprini VTE Risk Assessment Caprini VTE Risk Assessment: Moderate/High Risk (score >= 2) Caprini Risk Assessment Model: Point Value = 1 Point Value = 2 Point Value = 3 Point Value = 5 Age 41-60 Minor surgery BMI > 25 kg/m2 Swollen legs Varicose veins or History of unexplained or recurrent spontaneous Oral contraceptives or hormone replacement Sepsis (< 1 month) Serious lung disease, including pneumonia (< 1 month) Abnormal pulmonary function Acute myocardial infarction Congestive heart failure (< 1 month) History of inflammatory bowel disease Medical patient at bed rest Age 61-74 Arthroscopic surgery Major open surgery (> 45 min) Laparoscopic surgery (> 45 min) Malignancy Confined to bed (> 72 hours) Immobilizing plaster cast Central venous access Age >= 75 History of VTE Family history of VTE Factor V Leiden Prothrombin [id number] Lupus anticoagulant Anticardiolipin antibodies Elevated serum homocysteine Heparin-induced thrombocytopenia Other congenital or acquired thrombophilia Stroke (< 1 month) Elective arthroplasty Hip, pelvis, or leg fracture Acute spinal cord injury (< 1 month) Prophylaxis Regimen: Total Risk Factor Score Risk Level Prophylaxis Regimen 0-1 Low Early ambulation 2 Moderate Order ONE of the following: *Sequential Compression Device (SCD) *Heparin 5000 units SQ BID 3-4 Higher Order ONE of the following medications: *Heparin 5000 units SQ TID *Enoxaparin/Lovenox 40 mg SQ daily (WT < 150 kg, CrCl > 30 mL/min) *Enoxaparin/Lovenox 30 mg SQ daily (WT < 150 kg, CrCl > 10-29 mL/min) *Enoxaparin/Lovenox 30 mg SQ BID (WT < 150 kg, CrCl > 30 mL/min) AND/OR *Sequential Compression Device (SCD) 5 or more Highest Order ONE of the following medications: *Heparin 5000 units SQ TID (Preferred with Epidurals) *Enoxaparin/Lovenox 40 mg SQ daily (WT < 150 kg, CrCl > 30 mL/min) *Enoxaparin/Lovenox 30 mg SQ daily (WT < 150 kg, CrCl > 10-29 mL/min) *Enoxaparin/Lovenox 30 mg SQ BID (WT < 150 kg, CrCl > 30 mL/min) AND *Sequential Compression Device (SCD) Assessment and Plan - Assessment (1) Idiopathic pancreatitis Code(s): K85.00 - Idiopathic acute pancreatitis without necrosis or infection Status: Chronic Plan: pain meds some fluids as well consult GI (2) Acute on chronic kidney failure Code(s): N17.9 - Acute kidney failure, unspecified; N18.9 - Chronic kidney disease, unspecified Status: Acute Plan: responded to fluids in past will consult nephrology (3) Pneumonia Code(s): J18.9 - Pneumonia, unspecified organism Status: Acute Plan: chest xray may suggest pneumonia started on antibiotics (4) SIRS (systemic inflammatory response syndrome) Code(s): R65.10 - Systemic inflammatory response syndrome (SIRS) of non- infectious origin without acute organ dysfunction Status: Acute Plan: antibiotics fluids follow labs (5) Acute UTI Code(s): N39.0 - Urinary tract infection, site not specified Status: Acute Plan: iv fluids follow labs antibiotics blood cultures - Plan further plan as case develops Code Status: full Discussed Condition With: patient (1) Idiopathic pancreatitis Qualifiers: (2) Acute on chronic kidney failure Qualifiers: Acute renal failure type: unspecified Chronic kidney disease stage: unspecified stage Qualified Code(s): N17.9 - Acute kidney failure, unspecified ; N18.9 - Chronic kidney disease, unspecified (3) Pneumonia Qualifiers: Pneumonia type: due to unspecified organism Laterality: right Lung location : lower lobe of lung Qualified Code(s): J18.1 - Lobar pneumonia, unspecified organism
[2018-06-29] MEDS ORDERED: Bisacodyl 10 MG Supp RECTAL PRN (23:26)
[2018-06-29] MEDS ORDERED: NUTRITIONAL SUPPLEMENT FEED TUBE SCH (23:30)
[2018-06-29] MEDS ORDERED: [UNRECOGNIZED DRUG - OTHER] FEED TUBE SCH (23:30)
[2018-06-30] MEDS: Azithromycin Inj 500 MG in Sodium Chlor 0.9% Inj 250 ML IV.SIG SCH (00:08)
[2018-06-30] MEDS: Sodium Chloride 0.45 % Inj 1,000 ML IV.CONT SCH ×4 (00:10→22:39)
[2018-06-30] MEDS ORDERED: [UNRECOGNIZED DRUG - REMARK] PO SCH (09:00)
[2018-06-30] MEDS: amLODIPine 5 MG Tablet PO SCH (09:14)
[2018-06-30] MEDS: Metoprolol Tartrate 25 MG Tablet PO SCH ×2 (09:14→22:38)
[2018-06-30] MEDS: Sucralfate 1 GM Tablet PO SCH ×3 (09:15→17:13)
[2018-06-30] MEDS: Senna/Docusate Sodium 8.6/50 MG Tablet PO SCH ×2 (09:15→22:38)
[2018-06-30] MEDS: predniSONE 10 MG Tablet PO SCH (09:15)
[2018-06-30] MEDS: Simethicone 125 MG Chew Tablet PO SCH ×3 (10:10→17:13)
--- NOTE | 2018-06-30 11:29 | P.CONGI ---
History of Present Illness Consult date: 06/30/18 Consult reason: idiopathic pancreatitis, known to our service Chief complaint: RLL Pna, SIRS, Leukocytosis, Chronic Pancreatitis History of Present Illness: This is a 82 yo F with medical history significant for recurrent idiopathic pancreatitis and gastroparesis with GJ tube in which she receives overnight continuous feeding through the J tube. Pt is well known to our service and has had multiple biliary stents placed and exchanged. Last ERCP done on May 23, inpatient by Dr. Lino --> A previously placed ampulla stent was seen via flouroscopy and appeared migrated in. Multiple filling defects seen within the stent and distally. Ductal sweep done with 8 mm balloon, large amount of soft stones and debris removed. Plastic biliary stent placed 10 f 10cm to keep the lumen patent and open. Pt was recommended to have stent change with metallic one to cover the distal part of the CBD. Pt presented to the ER yesterday with complaints of constant abdominal pain for the past three days, located mostly on the right side of her abdomen but radiates to the left side and all over her abdomen . Describes pain as aching. Does reports some associated nausea with emesis prior to arrival, denies hematemesis and coffee ground emesis. pt reports she has been tolerating her TF at home. Pt was seen by Dr. Ortega in the office two days ago and was advised to have labs done and repeat ERCP. Pt was advised if symptoms worsened to go to the ER. Review of Systems Gastrointestinal: Reports abdominal pain, Reports constipation, Reports nausea, Reports vomiting PMFSH - History History Provided By: Patient, Family Member - Medical History Medical History: Medical History (Last Reviewed 06/29/18 @ 20:11 by Fide Galeana) Anxiety CKD (chronic kidney disease) stage 3, GFR 30-59 ml/min Encounter for gastrojejunal (GJ) tube placement GERD (gastroesophageal reflux disease) Hypertension Idiopathic pancreatitis Pancreatitis - Surgical History Surgical History: Surgical History (Last Reviewed 06/29/18 @ 20:11 by Fide Galeana) History of total left knee replacement (TKR) Hx of cholecystectomy S/P ERCP - Family History Family History: Family History (Last Updated 05/16/18 @ 15:17 by SUSHIL Obregon) Other Family history non-contributory - Tobacco History Second Hand Smoke Exposure: No Smoking Status: Never smoker - Alcohol History How Often Do You Have a Drink Containing Alcohol: Never - Substance Use History Substance History: No History of Abuse - Travel History Recent Travel in the [place] Within the Last 8 Weeks: No Recent Travel Out of the Country Within the Last 8 Weeks: No - Immunization History Tetanus Immunization: Unsure Hx Influenza Vaccine This Season: No Medications and Allergies Active Medications: Active Medications Al Hydroxide/Mg Hydroxide (Milk Of Magnesia Liq) 30 ml PO QID PRN PRN Reason: Constipation Amlodipine Besylate (Norvasc) 5 mg PO DAILY [facility] Last Admin: 06/30/18 09:14 Dose: 5 mg Lipase/Protease/Amylase (Creon ) 1 cap PO TIDPC [facility] Bisacodyl (Dulcolax Supp) 10 mg RECTAL DAILY PRN PRN Reason: SEVERE CONSITIPATION Duloxetine HCl (Cymbalta) 20 mg PO DAILY [facility] Last Admin: 06/30/18 09:14 Dose: 20 mg Cefepime HCl 1,000 mg/ Sodium (Chloride) 100 mls @ 200 mls/hr IV.SIG Q12H [facility] Last Admin: 06/30/18 01:42 Dose: 200 mls/hr Azithromycin 500 mg/ Sodium (Chloride) 250 mls @ 250 mls/hr IV.SIG Q24H [facility] Last Infusion: 06/30/18 01:25 Dose: Infused Sodium Chloride (1/2 Normal Saline Inj) 1,000 mls @ 75 mls/hr IV.CONT .[id number] [facility] Last Admin: 06/30/18 00:10 Dose: 75 mls/hr Lactulose (Lactulose Liq) 30 ml PO DAILY PRN PRN Reason: SEVERE CONSITIPATION Metoprolol Tartrate (Lopressor) 25 mg PO BID [facility] Last Admin: 06/30/18 09:14 Dose: 25 mg Morphine Sulfate (Morphine Inj) 4 mg IV.PUSH Q4H PRN PRN Reason: PAIN SCALE 6 TO 10 Ondansetron HCl (Zofran Inj) 4 mg IV.PUSH Q6H PRN PRN Reason: NAUSEA OR VOMITING Pantoprazole Sodium (Protonix) 40 mg PO BID [facility] Last Admin: 06/30/18 09:14 Dose: 40 mg Prednisone (Deltasone) 10 mg PO DAILY [facility] Last Admin: 06/30/18 09:15 Dose: 10 mg Senna/Docusate Sodium (Mattie-Colace) 1 tab PO BID [facility] Last Admin: 06/30/18 09:15 Dose: 1 tab Simethicone (Phazyme Chew) 125 mg PO TIDAC [facility] Last Admin: 06/30/18 10:10 Dose: 125 mg Sodium Chloride (Ns Flush) 2 ml IV.FLUSH PRN PRN PRN Reason: FLUSH AFTER USING IV ACCESS Sterile Water (Free Water) 200 ml G-TUBE Q6HR [facility] Last Admin: 06/30/18 06:08 Dose: 200 ml Sucralfate (Carafate) 1 gm PO TID [facility] Last Admin: 06/30/18 09:15 Dose: 1 gm Temazepam (Restoril) 15 mg PO HS PRN PRN Reason: INSOMNIA Ursodiol (Actigall) 300 mg PO BID [facility] Last Admin: 06/30/18 10:10 Dose: 300 mg Allergies Allergy/AdvReac Type Severity Reaction Status Date / Time No Known Allergies Allergy Unverified 05/16/18 07:25 Home Medications Medication Instructions Recorded Confirmed Type hydrocodone-acetaminophen [Bailey] 1 tab PO Q4H PRN 05/16/18 06/29/18 History pqqams-[id number]-ssvdkts [Creon] 1 tab PO TIDPC 05/16/18 06/29/18 History magnesium hydroxide [Presley Milk 311 mg PO QID PRN 05/16/18 06/29/18 History of Magnesia] meclizine 25 mg PO DAILY PRN 05/16/18 06/29/18 History metoprolol tartrate 25 mg PO BID 05/16/18 06/29/18 History pantoprazole 40 mg PO BID 05/16/18 06/29/18 History sucralfate 1 g PO TID 05/16/18 06/29/18 History Exam Vital signs: Vital Signs 06/29/18 20:08 06/29/18 20:23 06/29/18 20:31 Temperature 97.9 F Pulse Rate 131 H 121 H Respiratory Rate 20 16 Blood Pressure 70/49 L 120/59 L Pulse Oximetry 99 97 97 06/29/18 21:00 06/29/18 21:32 06/29/18 21:39 Temperature Pulse Rate 115 H 104 H Respiratory Rate 16 16 16 Blood Pressure 122/58 L Pulse Oximetry 97 95 06/29/18 22:22 06/29/18 23:00 06/30/18 01:17 Temperature 97.9 F Pulse Rate 116 H Respiratory Rate 16 16 18 Blood Pressure 125/62 Pulse Oximetry 95 06/30/18 06:39 06/30/18 08:00 Temperature 98.6 F 98.2 F Pulse Rate 111 H 115 H Respiratory Rate 18 20 Blood Pressure 122/57 L 129/60 Pulse Oximetry 98 97 Intake & Output 06/29/18 06/30/18 06/30/18 18:59 06:59 18:59 Intake Total 3600 / 3600 Balance 3600 / 3600 Weight 62.596 kg Intake: IV 3600 / 3600 Azithromycin Inj 500 MG In NS 500 / 500 Inj 250 ML @ 250 mls/hr IV.SIG Q24H [facility] Rx#:[id number] Maxipime Inj 1,000 MG In NS Inj 100 / 100 100 ML @ 200 mls/hr IV.SIG ONCE ONE Rx#:[id number] NS Inj 1,000 ML @ Wide Open IV. 3000 / 3000 SIG BOLUS ONE Rx#:[id number] Other: Weight On Admission 62.596 kg - Constitutional no acute distress - Routine HEENT Exam Head: Present: normocephalic, atraumatic - Routine Respiratory Exam Absent: accessory muscle use - Routine Abdominal Exam Present: soft, normoactive bowel sounds, tenderness, distended Comments: GJ tube clamped - Routine Skin Exam Present: dry, warm - Routine Neurological Exam Present: alert, oriented X3 Results - Labs CBC & Chem 7: 06/29/18 20:35 06/29/18 20:35 Labs: Laboratory Results - last 24 hr 06/29/18 06/29/18 06/29/18 20:35 20:35 20:35 WBC 30.1 H RBC 3.08 L Hgb 8.7 L Hct 27.5 L MCV 89.4 MCH 28.1 MCHC 31.4 L RDW 19.0 H Plt Count 490 H D MPV 8.0 Prelim Diff (Auto) Slide review pending Neut % (Auto) 92.5 H Lymph % (Auto) 4.0 L [place] % (Auto) 2.5 Eos % (Auto) 0.6 Baso % (Auto) 0.4 Neut # (Auto) 27.9 H Lymph # (Auto) 1.2 [place] # (Auto) 0.7 Eos # (Auto) 0.2 Baso # (Auto) 0.1 WBC Differential Manual diff final Seg Neuts % (Manual) 91 H Band Neuts % (Manual) 5 Lymphocytes % (Manual) 1 L Eosinophils % (Manual) 1 Metamyelocytes % (Man) 2 H Abs Neuts (Manual) 29.5 H Differential Comment . Toxic Granulation 3+ H Toxic Vacuolation Present H Platelet Estimate High H Platelet Morphology Normal Spherocytes Occ H Sodium 136 Potassium 4.0 Chloride 102 Carbon Dioxide 20.2 L Anion Gap 14 BUN 73 H Creatinine 5.57 H Estimated GFR 9 L Random Glucose 107 H Lactic Acid 2.4 H Calcium 9.1 Total Bilirubin 0.3 AST 15 ALT 11 Alkaline Phosphatase 139 H Total Creatine Kinase 28 Troponin I Less than 0.02 L Total Protein 7.2 Albumin 1.6 L Lipase 234 Urine Color Urine Clarity Urine pH Ur Specific [place] Urine Protein Urine Glucose (UA) Urine Ketones Urine Occult Blood Urine Nitrate Urine Bilirubin Urine Urobilinogen Ur Leukocyte Esterase Urine RBC Urine WBC Urine WBC Clumps Calcium Oxalate Crystal Urine Bacteria Micro UA Comment Urine Culture Comments 06/29/18 22:00 WBC RBC Hgb Hct MCV MCH MCHC RDW Plt Count MPV Prelim Diff (Auto) Neut % (Auto) Lymph % (Auto) [place] % (Auto) Eos % (Auto) Baso % (Auto) Neut # (Auto) Lymph # (Auto) [place] # (Auto) Eos # (Auto) Baso # (Auto) WBC Differential Seg Neuts % (Manual) Band Neuts % (Manual) Lymphocytes % (Manual) Eosinophils % (Manual) Metamyelocytes % (Man) Abs Neuts (Manual) Differential Comment Toxic Granulation Toxic Vacuolation Platelet Estimate Platelet Morphology Spherocytes Sodium Potassium Chloride Carbon Dioxide Anion Gap BUN Creatinine Estimated GFR Random Glucose Lactic Acid Calcium Total Bilirubin AST ALT Alkaline Phosphatase Total Creatine Kinase Troponin I Total Protein Albumin Lipase Urine Color Yellow Urine Clarity Hazy H Urine pH 5.0 Ur Specific [place] 1.012 Urine Protein 30 H Urine Glucose (UA) Negative Urine Ketones Negative Urine Occult Blood Small H Urine Nitrate Negative Urine Bilirubin Negative Urine Urobilinogen Less than 2 Ur Leukocyte Esterase Large H Urine RBC 5 H Urine WBC 124 H Urine WBC Clumps Few H Calcium Oxalate Crystal Rare H Urine Bacteria Rare H Micro UA Comment Culture indicated Urine Culture Comments Culture indicated - Imaging Impressions Abdomen/Pelvis CT 06/29/18 20:27 CONCLUSION: 1. Biliary stent with interval Silastic stent. Air in the left hepatic ducts. 2. I don't see an etiology for the patient's right-sided abdominal pain. Lack of intravenous and oral contrast makes detection of subtle abnormalities difficult 3. . Inflammatory processes such as pyonephritis cannot be excluded. Chest X-Ray 06/29/18 20:27 CONCLUSION: Linear areas of atelectasis or scarring. These are stable. No new or acute abnormality is seen. Assessment and Plan - Plan Assessment: - Idiopathic pancreatitis- well known to our service- follows Dr. Ortega outpatient Pt has had multiple stents placed- last ERCP done on May 23, inpatient by Dr. Lino --> A previously placed ampulla stent was seen via fluoroscopy and appeared migrated in. Multiple filling defects seen within the stent and distally. Ductal sweep done with 8 mm balloon, large amount of soft stones and debris removed. Plastic biliary stent placed 10 f 10cm to keep the lumen patent and open. Pt was recommended to have stent change with metallic one to cover the distal part of the CBD. Pt was seen by Dr. Ortega in the office two days ago and was advised to have labs done and repeat ERCP. No repeat labs seen in chart. Pt was advised if symptoms worsened to go to the ER. Pt presented to the ER yesterday with complaints of constant abdominal pain for the past three days, located mostly on the right side of her abdomen but radiates to the left side and all over her abdomen . Describes pain as aching. Does reports some associated nausea with emesis prior to arrival, denies hematemesis and coffee ground emesis. Of note, pts previous labs reviewed, her LFTs and bili never seem to elevate, but she has had elevation in Alk phos and lipase - Gastroparesis- Pt with GJ tube- continuous TF through J tube at night, G tube stays clamped. pt reports tolerating her tube feeds Cased discussed with Dr. Ortega, advising that plastic stent within pts metallic stent be removed and there is a possible need for a metallic stent to be placed within her already placed metallic stent leaving a stent slightly protruding from the ampulla Plan: ERCP with stent removal/?placement of new stent Obtain consent NPO Monitor labs Further recommendations to follow Pt has been seen and examined by myself and Dr. Hernandez and this note is written on his behalf
[2018-06-30] MEDS: Lipase/Protease/Amylase 12/38/60 DR Capsule PO SCH ×4 (11:43→18:02)
[2018-06-30] MEDS ORDERED: Lidocaine PF 1% Inj 5 ML Syringe INFILTRATN ONE (12:00)
[2018-06-30] MEDS ORDERED: Succinylcholine Inj 100 MG/5 ML Syringe IV.PUSH ONE (12:00)
--- NOTE | 2018-06-30 12:56 | ECG ---
Date Performed: 06/29/2018 Time Performed: 20:33:06 PTAGE: 82 years EKG: SINUS TACHYCARDIA NONSPECIFIC ST & T-WAVE ABNORMALITY ABNORMAL RHYTHM ECG Compared to PREVIOUS TRACING , the rate is faster and the nonspecific ST segment changes are now pres ent. PREVIOUS TRACIN05/16/2018 08.54 DOCTOR: Ryan Faustin Interpretating Date/Time 06/30/2018 12:54:40
[2018-06-30] MEDS ORDERED: fentaNYL Citrate Inj 100 MCG/2 ML Ampul ONE (13:49)
--- NOTE | 2018-06-30 14:49 | FL ---
EXAM DATE: 06/30/2018 1:50 PM EDT AGE/SEX: 82 years / Female INDICATIONS: Replacement of biliary stent. CLINICAL DATA: This is the patient's subsequent encounter. Patient reports that signs and symptoms h ave been present for 2 days and indicates a pain score of Nonresponsive. MEDICAL/SURGICAL HISTORY: Non-responsive. . Biliary stent placement. COMPARISON: [facility] [place], GI LAB ERCP, 05/23/2018. [facility] [place], CT ABDOMEN & PELVIS W/O CONTRAST, 06/29/2018. . FINDINGS: An ERCP was performed by the ordering physician. The images demonstrate a metallic stent in the mid and distal common bile duct. The stent is traversed with a guidewire which extends into the intrahepa tic bile ducts. The final image demonstrates a plastic stent within the metallic stent. The intrahepa tic bile ducts do not appear to be significantly dilated on image 1/2. CONCLUSION: Spot fluoroscopic images during ERCP, as above. Electronically signed by: Luis E Pickett MD 06/30/2018 2:48 PM EDT
--- NOTE | 2018-06-30 15:33 | P.PNIM ---
Subjective Interval history: Patient s/p stent exchange patient drowsy post anesthesia offers no complaints at this time reports abd pain has resolved Physical Exam Vital signs: Vital Signs 06/29/18 20:08 06/29/18 20:23 06/29/18 20:31 Temperature 97.9 F Pulse Rate 131 H 121 H Respiratory Rate 20 16 Blood Pressure 70/49 L 120/59 L Pulse Oximetry 99 97 97 06/29/18 21:00 06/29/18 21:32 06/29/18 21:39 Temperature Pulse Rate 115 H 104 H Respiratory Rate 16 16 16 Blood Pressure 122/58 L Pulse Oximetry 97 95 06/29/18 22:22 06/29/18 23:00 06/30/18 01:17 Temperature 97.9 F Pulse Rate 116 H Respiratory Rate 16 16 18 Blood Pressure 125/62 Pulse Oximetry 95 06/30/18 06:39 06/30/18 08:00 06/30/18 11:40 Temperature 98.6 F 98.2 F Pulse Rate 111 H 115 H Respiratory Rate 18 20 Blood Pressure 122/57 L 129/60 Pulse Oximetry 98 97 96 06/30/18 13:17 06/30/18 13:18 06/30/18 13:30 Temperature 98.0 F Pulse Rate 80 80 Respiratory Rate 18 17 Blood Pressure 136/65 137/70 Pulse Oximetry 91 L 94 L 95 06/30/18 13:40 Temperature 98.0 F Pulse Rate 79 Respiratory Rate 18 Blood Pressure 139/65 Pulse Oximetry 95 Intake & Output 06/29/18 06/30/18 06/30/18 18:59 06:59 18:59 Intake Total 3600 / 3600 Balance 3600 / 3600 Weight 62.596 kg Intake: IV 3600 / 3600 Azithromycin Inj 500 MG In NS 500 / 500 Inj 250 ML @ 250 mls/hr IV.SIG Q24H [facility] Rx#:[id number] Maxipime Inj 1,000 MG In NS Inj 100 / 100 100 ML @ 200 mls/hr IV.SIG ONCE ONE Rx#:[id number] NS Inj 1,000 ML @ Wide Open IV. 3000 / 3000 SIG BOLUS ONE Rx#:[id number] Other: Weight On Admission 62.596 kg Narrative: GENERAL: Patient is alert, not in distress. CARDIO: Regular RESP: clear x b/l ABD: Abdomen soft, mild tenderness on palpation at LUQ GJ tube in place, no drainage or erythema EXT: No cyanosis, or edema. Results - Labs CBC & Chem 7: 07/02/18 08:30 07/02/18 08:30 Laboratory Results - last 24 hr 06/29/18 06/29/18 06/29/18 20:35 20:35 20:35 WBC 30.1 H RBC 3.08 L Hgb 8.7 L Hct 27.5 L MCV 89.4 MCH 28.1 MCHC 31.4 L RDW 19.0 H Plt Count 490 H D MPV 8.0 Prelim Diff (Auto) Slide review pending Neut % (Auto) 92.5 H Lymph % (Auto) 4.0 L [place] % (Auto) 2.5 Eos % (Auto) 0.6 Baso % (Auto) 0.4 Neut # (Auto) 27.9 H Lymph # (Auto) 1.2 [place] # (Auto) 0.7 Eos # (Auto) 0.2 Baso # (Auto) 0.1 WBC Differential Manual diff final Seg Neuts % (Manual) 91 H Band Neuts % (Manual) 5 Lymphocytes % (Manual) 1 L Eosinophils % (Manual) 1 Metamyelocytes % (Man) 2 H Abs Neuts (Manual) 29.5 H Differential Comment . Toxic Granulation 3+ H Toxic Vacuolation Present H Platelet Estimate High H Platelet Morphology Normal Spherocytes Occ H Sodium 136 Potassium 4.0 Chloride 102 Carbon Dioxide 20.2 L Anion Gap 14 BUN 73 H Creatinine 5.57 H Estimated GFR 9 L Random Glucose 107 H Lactic Acid 2.4 H Calcium 9.1 Total Bilirubin 0.3 AST 15 ALT 11 Alkaline Phosphatase 139 H Total Creatine Kinase 28 Troponin I Less than 0.02 L Total Protein 7.2 Albumin 1.6 L Lipase 234 Urine Color Urine Clarity Urine pH Ur Specific [place] Urine Protein Urine Glucose (UA) Urine Ketones Urine Occult Blood Urine Nitrate Urine Bilirubin Urine Urobilinogen Ur Leukocyte Esterase Urine RBC Urine WBC Urine WBC Clumps Calcium Oxalate Crystal Urine Bacteria Micro UA Comment Urine Culture Comments 06/29/18 22:00 WBC RBC Hgb Hct MCV MCH MCHC RDW Plt Count MPV Prelim Diff (Auto) Neut % (Auto) Lymph % (Auto) [place] % (Auto) Eos % (Auto) Baso % (Auto) Neut # (Auto) Lymph # (Auto) [place] # (Auto) Eos # (Auto) Baso # (Auto) WBC Differential Seg Neuts % (Manual) Band Neuts % (Manual) Lymphocytes % (Manual) Eosinophils % (Manual) Metamyelocytes % (Man) Abs Neuts (Manual) Differential Comment Toxic Granulation Toxic Vacuolation Platelet Estimate Platelet Morphology Spherocytes Sodium Potassium Chloride Carbon Dioxide Anion Gap BUN Creatinine Estimated GFR Random Glucose Lactic Acid Calcium Total Bilirubin AST ALT Alkaline Phosphatase Total Creatine Kinase Troponin I Total Protein Albumin Lipase Urine Color Yellow Urine Clarity Hazy H Urine pH 5.0 Ur Specific [place] 1.012 Urine Protein 30 H Urine Glucose (UA) Negative Urine Ketones Negative Urine Occult Blood Small H Urine Nitrate Negative Urine Bilirubin Negative Urine Urobilinogen Less than 2 Ur Leukocyte Esterase Large H Urine RBC 5 H Urine WBC 124 H Urine WBC Clumps Few H Calcium Oxalate Crystal Rare H Urine Bacteria Rare H Micro UA Comment Culture indicated Urine Culture Comments Culture indicated - Imaging Impressions Abdomen/Pelvis CT 06/29/18 20:27 CONCLUSION: 1. Biliary stent with interval Silastic stent. Air in the left hepatic ducts. 2. I don't see an etiology for the patient's right-sided abdominal pain. Lack of intravenous and oral contrast makes detection of subtle abnormalities difficult 3. . Inflammatory processes such as pyonephritis cannot be excluded. Chest X-Ray 06/29/18 20:27 CONCLUSION: Linear areas of atelectasis or scarring. These are stable. No new or acute abnormality is seen. GI Procedure 06/30/18 00:00 CONCLUSION: Spot fluoroscopic images during ERCP, as above. - Procedures GI Procedure 06/30/18 with IR An ERCP was performed by the ordering physician. The images demonstrate a metallic stent in the mid and distal common bile duct. The stent is traversed with a guidewire which extends into the intrahepatic bile ducts. The final image demonstrates a plastic stent within the metallic stent. The intrahepatic bile ducts do not appear to be significantly dilated Assessment and Plan - Assessment (1) Idiopathic pancreatitis Code(s): K85.00 - Idiopathic acute pancreatitis without necrosis or infection Status: Chronic Plan: Idiopathic pancreatitis - Ms. Larsen is an 82 y/o AAF with recurrent idiopathic pancreatitis. She has been hospitalized numerous times for issues with pain control related to recurrent pancreatitis. Her last admission was from 03/03/18 to 03/28/18 and she had biliary obstruction at that time. - During that admission she underwent evaluation with ERCP (03/03/18) which noted multiple stones, migrated metal stent up into CBD, could not put plastic stent due to "kink" in current stent according to GI notes. She required PTC placement on 03/04 by IR which noted severe obstruction of the proximal common bile duct stent with very challenging recanalization requiring multiple wires and catheters. biliary stent placement. She had to have a repeat ERCP (03/07/18) and had to have the metal stent cleared of debris and they were able to confirm complete clearance of the stent with good emptying through the stent. She had a percutaneous cholangiogram on 03/09/18 where the external portion of biliary drain was removed and the report showed some small hyperplasia within the distal aspect of the biliary stent but there is a patent channel down to the small bowel. -s/p ercp 05/23 with balloon sweep of stone fragments/debris from metal stent and placement of new stent - GJ tube exchange 710 with IR -mesenteric angio with IR 05/24. patent vessels. - Pt presented back to the ED at [facility] on 06/29/18 with continued abdominal pain that is similar to her previous pancreatitis pain. - Her labs in the ED revealed WBC count 30.1, Cr 5.57 /BUN 73, Lipase 234, TBili 0.3, AST 15, ALT 11, AlkPhos 139. Abdomen/Pelvis CT 06/29/18 reveals: 1. Biliary stent with interval Silastic stent. Air in the left hepatic ducts. 2. I don't see an etiology for the patient's right-sided abdominal pain. Lack of intravenous and oral contrast makes detection of subtle abnormalities difficult 3. Inflammatory processes such as pyonephritis cannot be excluded. GI Procedure 06/30/18 with IR An ERCP was performed by the ordering physician. The images demonstrate a metallic stent in the mid and distal common bile duct. The stent is traversed with a guidewire which extends into the intrahepatic bile ducts. The final image demonstrates a plastic stent within the metallic stent. The intrahepatic bile ducts do not appear to be significantly dilated - Pain control with Morphine and [place] PRN - zofran as need for N/V - will try to resume Nepro TF at 15ml/hour and slowly titrate back to 45ml/hour - patient started on Azithromycin and cefepime will continue - obtain repeat CBC, CMP, Mag, lipase in AM - Supportive care - DVT prophylaxis with SCDs - Dr. Eddy will discuss with Pt/daughter, Caitlyn, (by phone) later today Acute on chronic kidney failure - Pt with baseline stage 3 CKD, pt follows with Dr. Melraa - Her labs at admission noted acute worsening BUN 73 and creatinine 5.57 estimated GFR 9 - 1/2 NS increased to 125ml/H - consultation placed to Nephrology - Avoid nephrotoxic agents UTI - iv fluids follow labs - continue antibiotics - urine culture pending HTN (hypertension) - Cont. home meds - Monitor GERD (gastroesophageal reflux disease) - PPI Anemia - Pt with an acute decrease in her chronic anemia - on admission patient's Hgb DVT prophylaxis with SCDs (2) History of biliary stent insertion Code(s): Z98.890 - Other specified postprocedural states Status: Acute (3) Acute on chronic kidney failure Code(s): N17.9 - Acute kidney failure, unspecified; N18.9 - Chronic kidney disease, unspecified Status: Acute (4) Gastroparesis Code(s): K31.84 - Gastroparesis Status: Acute - Plan Patient examined. Assessment and plan formulated with Olga Weiss PA-C. I agree with the above. (1) Idiopathic pancreatitis Qualifiers: (3) Acute on chronic kidney failure Qualifiers: Acute renal failure type: unspecified Chronic kidney disease stage: unspecified stage Qualified Code(s): N17.9 - Acute kidney failure, unspecified ; N18.9 - Chronic kidney disease, unspecified
--- NOTE | 2018-06-30 17:16 | P.PCN ---
Procedure: THANK YOU FOR THE REFERRAL Indication; abdominal pain, history of chronic pancreatitis, patient has plastic stent inside the metal stent that get usually get changed periodically Procedure Performed; ERCP with stone extraction by balloon, stent placement, EGD with stent removal After informing the patient about procedure and possible complications consent was signed. history and physical were updated. Patient was taken to the procedure room and placed in position. Time out was completed. Adequate sedation was performed by anesthesia provider. Upper Endoscopy, the scope was placed in the mouth advanced under video guide to the second portion of the duodenum, there was a stent was identified in the duodenum and, then the scope was withdrawal to the stomach and retro-flexion was performed, the scope was withdrawal to the esophagus then out of the mouth without any immediate complication. ERCP: the scope was placed in the mouth advanced under video guide to the second portion of the duodenum, the ampulla was identified , cholangiogram was performed the metallic stent seems to be migrated inside the duct, the plastic stent was removed by an EGD, cholangiogram was performed which was showing the duct to be full of debris and stones, sweeping the duct with balloon showed multiple stones and significant amount of sludge and thick material, the duct was irrigated aggressively with saline, a 10 Kazakh 9 cm stent was placed, injections of the pancreatic duct was not performed, then the scope was withdrawal to the stomach and retro-flexion was performed, the scope was withdrawal to the esophagus then out of the mouth without any immediate complication. Findings; Esophagus: Normal Stomach normal Duodenum status post sphincterotomy from previous case, J-tube was in place, stent was removed as above Ampula status post sphincterotomy CBD stones and sludge this was removed and irrigated by balloon and normal saline then a plastic stent was placed as above pancreatic duct not examined Recommendations; N.p.o. for 6 hours then may start feeding LFTs in the morning Would need stent exchange in 4-5 month
--- NOTE | 2018-06-30 21:33 | P.CONNP ---
History of Present Illness Service: Nephrology Consult date: 06/30/18 Requesting Physician: Hong Peterson Reason for Consult: Acute renal failure and chronic kidney disease Primary Care Provider: Hong Peterson MD Family Provider: Hong Peterson MD Chief Complaint: Recurrent abdominal pain History of Present Illness: Patient is a 82-year-old -[place] female with history of chronic kidney disease, hypertension, recurrent abdominal pain and recurrent pancreatitis who has biliary obstruction and stent placement she developed abdominal pain then came in with sepsis and high white count, she underwent biliary stent removal, patient is feeling better she also has possibility of UTI she has been placed on cefepime cultures are pending, she has ongoing abdominal cramps, nausea. Review of Systems Constitutional: Reports anorexia, Reports lack of energy Cardiovascular: Reports shortness of breath Respiratory: Reports shortness of breath Gastrointestinal: Reports abdominal pain, Reports bloating, Reports cramping, Reports nausea, Reports vomiting Musculoskeletal: Reports back pain, Reports muscle cramps Neurologic: Reports weakness Psychiatric: Reports anxiety Hematologic/Lymphatic: Reports other Allergic/Immunologic: Reports GI upset with certain foods PMFSH - History History Provided By: Patient, Family Member - Medical History Medical History: Medical History (Last Reviewed 06/29/18 @ 20:11 by Fide Galeana) Anxiety CKD (chronic kidney disease) stage 3, GFR 30-59 ml/min Encounter for gastrojejunal (GJ) tube placement GERD (gastroesophageal reflux disease) Hypertension Idiopathic pancreatitis Pancreatitis - Surgical History Surgical History: Surgical History (Last Reviewed 06/29/18 @ 20:11 by Fide Galeana) History of total left knee replacement (TKR) Hx of cholecystectomy S/P ERCP - Family History Family History: Family History (Last Updated 05/16/18 @ 15:17 by SUSHIL Obregon) Other Family history non-contributory - Tobacco History Second Hand Smoke Exposure: No Smoking Status: Never smoker - Alcohol History How Often Do You Have a Drink Containing Alcohol: Never - Substance Use History Substance History: No History of Abuse - Travel History Recent Travel in the [place] Within the Last 8 Weeks: No Recent Travel Out of the Country Within the Last 8 Weeks: No - Immunization History Tetanus Immunization: Unsure Hx Influenza Vaccine This Season: No Medications and Allergies Active Medications: Active Medications Hydrocodone Bitart/Acetaminophen ([place] 5/325) 1 tab PO Q4H PRN PRN Reason: pain 1-10 Al Hydroxide/Mg Hydroxide (Milk Of Magnesia Liq) 30 ml PO QID PRN PRN Reason: Constipation Amlodipine Besylate (Norvasc) 5 mg PO DAILY [facility] Last Admin: 06/30/18 09:14 Dose: 5 mg Lipase/Protease/Amylase (Mando Kapoor 60) 1 cap PO TIDPC [facility] Last Admin: 06/30/18 18:02 Dose: Not Given Bisacodyl (Dulcolax Supp) 10 mg RECTAL DAILY PRN PRN Reason: SEVERE CONSITIPATION Duloxetine HCl (Cymbalta) 20 mg PO DAILY [facility] Last Admin: 06/30/18 09:14 Dose: 20 mg Cefepime HCl 1,000 mg/ Sodium (Chloride) 100 mls @ 200 mls/hr IV.SIG Q12H [facility] Last Admin: 06/30/18 15:56 Dose: 200 mls/hr Azithromycin 500 mg/ Sodium (Chloride) 250 mls @ 250 mls/hr IV.SIG Q24H [facility] Last Infusion: 06/30/18 01:25 Dose: Infused Sodium Chloride (1/2 Normal Saline Inj) 1,000 mls @ 125 mls/hr IV.CONT .Q8H [facility] Last Admin: 06/30/18 15:56 Dose: 75 mls/hr Lactulose (Lactulose Liq) 30 ml PO DAILY PRN PRN Reason: SEVERE CONSITIPATION Metoprolol Tartrate (Lopressor) 25 mg PO BID [facility] Last Admin: 06/30/18 09:14 Dose: 25 mg Miscellaneous Information ([facility] [place] [facility] 1 each OTHER UNSCH PRN PRN Reason: SEE LABEL COMMENTS Stop: 07/01/18 13:21 Morphine Sulfate (Morphine Inj) 4 mg IV.PUSH Q4H PRN PRN Reason: BREAKTHROUGH PAIN Ondansetron HCl (Zofran Inj) 4 mg IV.PUSH Q6H PRN PRN Reason: NAUSEA OR VOMITING Pantoprazole Sodium (Protonix) 40 mg PO BID [facility] Last Admin: 06/30/18 09:14 Dose: 40 mg Prednisone (Deltasone) 10 mg PO DAILY [facility] Last Admin: 06/30/18 09:15 Dose: 10 mg Senna/Docusate Sodium (Mattie-Colace) 1 tab PO BID [facility] Last Admin: 06/30/18 09:15 Dose: 1 tab Simethicone (Phazyme Chew) 125 mg PO TIDAC [facility] Last Admin: 06/30/18 17:13 Dose: 125 mg Sodium Chloride (Ns Flush) 2 ml IV.FLUSH PRN PRN PRN Reason: FLUSH AFTER USING IV ACCESS Sterile Water (Free Water) 200 ml G-TUBE Q6HR [facility] Last Admin: 06/30/18 17:26 Dose: 200 ml Sucralfate (Carafate) 1 gm PO TID [facility] Last Admin: 06/30/18 17:13 Dose: 1 gm Temazepam (Restoril) 15 mg PO HS PRN PRN Reason: INSOMNIA Ursodiol (Actigall) 300 mg PO BID [facility] Last Admin: 06/30/18 10:10 Dose: 300 mg Allergies Allergy/AdvReac Type Severity Reaction Status Date / Time No Known Allergies Allergy Unverified 05/16/18 07:25 Home Medications Medication Instructions Recorded Confirmed Type hydrocodone-acetaminophen [[place]] 1 tab PO Q4H PRN 05/16/18 06/29/18 History [id number] [Creon] 1 tab PO TIDPC 05/16/18 06/29/18 History magnesium hydroxide [Presley Milk 311 mg PO QID PRN 05/16/18 06/29/18 History of Magnesia] meclizine 25 mg PO DAILY PRN 05/16/18 06/29/18 History metoprolol tartrate 25 mg PO BID 05/16/18 06/29/18 History pantoprazole 40 mg PO BID 05/16/18 06/29/18 History sucralfate 1 g PO TID 05/16/18 06/29/18 History Exam Vital signs: Vital Signs 06/29/18 21:32 06/29/18 21:39 06/29/18 22:22 Temperature Pulse Rate 104 H Respiratory Rate 16 16 16 Blood Pressure 122/58 L Pulse Oximetry 95 06/29/18 23:00 06/30/18 01:17 06/30/18 06:39 Temperature 97.9 F 98.6 F Pulse Rate 116 H 111 H Respiratory Rate 18 18 Blood Pressure 125/62 122/57 L Pulse Oximetry 95 98 06/30/18 08:00 06/30/18 11:40 06/30/18 13:17 Temperature 98.2 F 98.0 F Pulse Rate 115 H 80 Respiratory Rate 20 18 Blood Pressure 129/60 136/65 Pulse Oximetry 97 96 91 L 06/30/18 13:18 06/30/18 13:30 06/30/18 13:40 Temperature 98.0 F Pulse Rate 80 79 Respiratory Rate 17 18 Blood Pressure 137/70 139/65 Pulse Oximetry 94 L 95 95 06/30/18 16:00 06/30/18 20:00 Temperature 97.5 F L 97.7 F Pulse Rate 84 86 Respiratory Rate 16 20 Blood Pressure 133/60 123/59 L Pulse Oximetry 98 94 L Intake & Output 06/30/18 06/30/18 07/01/18 06:59 18:59 06:59 Intake Total 3700 / 3700 1500 / 1500 Balance 3700 / 3700 1500 / 1500 Weight 62.596 kg Intake: IV 3700 / 3700 1000 / 1000 1/2 Normal Saline Inj 1,000 ML 1000 / 1000 @ 125 mls/hr IV.CONT .Q8H [facility] Rx#:[id number] Azithromycin Inj 500 MG In NS 500 / 500 Inj 250 ML @ 250 mls/hr IV.SIG Q24H [facility] Rx#:[id number] Maxipime Inj 1,000 MG In NS Inj 200 / 200 100 ML @ 200 mls/hr IV.SIG Q12H [facility] Rx#:[id number] NS Inj 1,000 ML @ Wide Open IV. 3000 / 3000 SIG BOLUS ONE Rx#:[id number] Anesthesia Amount 500 / 500 Other: # Voids 2 Weight On Admission 62.596 kg - Constitutional no acute distress - Routine HEENT Exam Head: Present: normocephalic, atraumatic - Routine Neck Exam Present: supple - Routine Respiratory Exam Present: CTA bilaterally - Routine Cardiovascular Exam Present: RRR - Routine Abdominal Exam Present: tenderness - Routine Neurological Exam Present: alert Results - Lab Results 06/29/18 20:35 06/29/18 20:35 Most recent lab results Calcium 9.1 mg/dL (8.5-10.1) 06/29/18 20:35 Assessment and Plan - Assessment (1) Acute UTI Code(s): N39.0 - Urinary tract infection, site not specified Status: Acute (2) Abdominal pain Code(s): R10.9 - Unspecified abdominal pain Status: Acute (3) Acute on chronic kidney failure Code(s): N17.9 - Acute kidney failure, unspecified; N18.9 - Chronic kidney disease, unspecified Status: Acute (4) Idiopathic pancreatitis Code(s): K85.00 - Idiopathic acute pancreatitis without necrosis or infection Status: Chronic - Plan Continue with the hydration and IV antibiotics continue monitor BMP Aortic nephrotoxins Monitor intake and output DYE studies We will follow (3) Acute on chronic kidney failure Qualifiers: Acute renal failure type: unspecified Chronic kidney disease stage: unspecified stage Qualified Code(s): N17.9 - Acute kidney failure, unspecified ; N18.9 - Chronic kidney disease, unspecified (4) Idiopathic pancreatitis Qualifiers:
[2018-07-01] MEDS: Azithromycin Inj 500 MG in Sodium Chlor 0.9% Inj 250 ML IV.SIG SCH (00:25)
[2018-07-01] MEDS: Sodium Chloride 0.45 % Inj 1,000 ML IV.CONT SCH ×3 (01:54→18:20)
[2018-07-01] MEDS: Simethicone 125 MG Chew Tablet PO SCH ×3 (08:30→18:30)
[2018-07-01] MEDS: amLODIPine 5 MG Tablet PO SCH (08:31)
[2018-07-01] MEDS: predniSONE 10 MG Tablet PO SCH (08:31)
[2018-07-01] MEDS: Sucralfate 1 GM Tablet PO SCH ×3 (08:31→18:15)
[2018-07-01] MEDS: Metoprolol Tartrate 25 MG Tablet PO SCH ×2 (08:31→21:35)
[2018-07-01] MEDS: Senna/Docusate Sodium 8.6/50 MG Tablet PO SCH ×2 (08:32→21:35)
[2018-07-01] MEDS: Lipase/Protease/Amylase 12/38/60 DR Capsule PO SCH ×3 (08:32→18:30)
[2018-07-01 08:58] LABS: Baso # (Auto) 0.1 th/mm3 (0.0-0.2); Baso % (Auto) 0.2 % (0.0-2.0); Eos # (Auto) 0.1 th/mm3 (0.0-0.4); Eos % (Auto) 0.2 % (0.0-4.0); Hemoglobin 7.2 gm/dL (11.6-15.3); Lymph # (Auto) 1.7 th/mm3 (1.0-4.8); Lymph % (Auto) 5.4 % (9.0-44.0); Mean Corpuscular HGB Conc 31.3 % (32.0-36.0); Mean Corpuscular Hemoglobin 28.4 pg (27.0-34.0); Mean Corpuscular Volume 90.9 fL (80.0-100.0); Mono # (Auto) 0.8 th/mm3 (0.0-0.9); Mono % (Auto) 2.5 % (0.0-8.0); Neut # (Auto) 28.8 th/mm3 (1.8-7.7); Neut % (Auto) 91.7 % (16.0-70.0); Platelet Count 530 th/mm3 (150-450); Red Blood Count 2.53 mil/mm3 (4.00-5.30); Red Cell Distribution Width 19.5 % (11.6-17.2); White Blood Count 31.4 th/mm3 (4.0-11.0)
[2018-07-01 09:24] LABS: Albumin 1.4 g/dL (3.4-5.0); Anion Gap 12 meq/L (5-15); Aspartate Aminotransferase 14 U/L (15-37); Blood Urea Nitrogen 72 mg/dL (7-18); Carbon Dioxide 16.8 meq/L (21.0-32.0); Chloride 112 meq/L (98-107); Glomerular Filtration Rate 11 mL/min (>89); Glucose,Random 120 mg/dL (74-106); Lipase 68 U/L (73-393); Magnesium 1.7 mg/dL (1.5-2.5); Potassium 4.2 meq/L (3.5-5.1); Sodium 141 meq/L (136-145)
[2018-07-01 09:26] LABS: Alanine Aminotransferase 9 U/L (10-53)
[2018-07-01 09:28] LABS: Alkaline Phosphatase 119 U/L (45-117); Total Protein 5.7 g/dL (6.4-8.2)
[2018-07-01 09:55] LABS: Acanthocytes 1+; Lymphocytes 9 % (9-44); Metamyelocytes 2 % (0-1); Monocytes 4 % (0-8); Myelocytes 1 % (0-0); Platelet Morphology Normal (Normal); Toxic Granulation 1+
--- NOTE | 2018-07-01 12:21 | P.PNGI ---
Subjective Interval history: Awake answer simple questions resting in the bed Mild minimal abdominal discomfort to light palpation No obvious nausea or vomiting GJ tube with Nepro at 45 cc an hour patient tolerate and as well as renal diet. <Jordana Sebastian - Last Filed: 07/01/18 12:22> Physical Exam Vital signs: Vital Signs 06/30/18 13:17 06/30/18 13:18 06/30/18 13:30 Temperature 98.0 F Pulse Rate 80 80 Respiratory Rate 18 17 Blood Pressure 136/65 137/70 Pulse Oximetry 91 L 94 L 95 06/30/18 13:40 06/30/18 16:00 06/30/18 20:00 Temperature 98.0 F 97.5 F L 97.7 F Pulse Rate 79 84 86 Respiratory Rate 18 16 20 Blood Pressure 139/65 133/60 123/59 L Pulse Oximetry 95 98 94 L 06/30/18 22:34 07/01/18 00:00 07/01/18 04:00 Temperature 98.1 F 97.8 F Pulse Rate 76 77 Respiratory Rate 21 19 Blood Pressure 107/61 118/56 L Pulse Oximetry 94 L 96 95 07/01/18 08:00 Temperature 97.4 F L Pulse Rate 83 Respiratory Rate 18 Blood Pressure 119/57 L Pulse Oximetry 97 Intake & Output 06/30/18 07/01/18 07/01/18 18:59 06:59 18:59 Intake Total 1600 / 1600 1235 / 1235 100 / 100 Balance 1600 / 1600 1235 / 1235 100 / 100 Intake: IV 1100 / 1100 1235 / 1235 100 / 100 1/2 Normal Saline Inj 1,000 ML 1000 / 1000 985 / 985 @ 125 mls/hr IV.CONT .Q8H [facility] Rx#:[id number] Azithromycin Inj 500 MG In NS 250 / 250 Inj 250 ML @ 250 mls/hr IV.SIG Q24H [facility] Rx#:[id number] Maxipime Inj 1,000 MG In NS Inj 100 / 100 100 / 100 100 ML @ 200 mls/hr IV.SIG Q12H [facility] Rx#:[id number] Anesthesia Amount 500 / 500 Other: # Voids 2 Date of Last Bowel Movement 07/01/18 - Constitutional no acute distress, chronically ill appearing - Routine HEENT Exam Head: Present: normocephalic ENT: Present: mucous membranes moist - Routine Respiratory Exam Present: accessory muscle use (Low volumes but no shortness of breath) - Routine Cardiovascular Exam Present: S1, S2 - Routine Abdominal Exam Present: soft (GJ tube intact without any erythema at site, active bowel sounds , soft) - Routine Extremities Exam Present: edema (None) - Routine Skin Exam Present: intact, pallor - Routine Neurological Exam Present: alert (Awake answer simple questions) <Jordana Sebastian - Last Filed: 07/01/18 12:22> Vital signs: Vital Signs 06/30/18 16:00 06/30/18 20:00 06/30/18 22:34 Temperature 97.5 F L 97.7 F Pulse Rate 84 86 Respiratory Rate 16 20 Blood Pressure 133/60 123/59 L Pulse Oximetry 98 94 L 94 L 07/01/18 00:00 07/01/18 04:00 07/01/18 08:00 Temperature 98.1 F 97.8 F 97.4 F L Pulse Rate 76 77 83 Respiratory Rate 21 19 18 Blood Pressure 107/61 118/56 L 119/57 L Pulse Oximetry 96 95 97 07/01/18 13:50 Temperature 97.7 F Pulse Rate 86 Respiratory Rate 20 Blood Pressure 119/67 Pulse Oximetry 98 Intake & Output 06/30/18 07/01/18 07/01/18 18:59 06:59 18:59 Intake Total 1600 / 1600 1235 / 1235 100 / 100 Balance 1600 / 1600 1235 / 1235 100 / 100 Intake: IV 1100 / 1100 1235 / 1235 100 / 100 1/2 Normal Saline Inj 1,000 ML 1000 / 1000 985 / 985 @ 125 mls/hr IV.CONT .Q8H [facility] Rx#:[id number] Azithromycin Inj 500 MG In NS 250 / 250 Inj 250 ML @ 250 mls/hr IV.SIG Q24H [facility] Rx#:[id number] Maxipime Inj 1,000 MG In NS Inj 100 / 100 100 / 100 100 ML @ 200 mls/hr IV.SIG Q12H [facility] Rx#:[id number] Anesthesia Amount 500 / 500 Other: # Voids 2 Date of Last Bowel Movement 07/01/18 <Patrick Hernandez - Last Filed: 07/01/18 15:28> Results - Labs CBC & Chem 7: 07/01/18 07:26 07/01/18 07:26 Laboratory Results - last 24 hr 07/01/18 07/01/18 07:26 07:26 WBC 31.4 H RBC 2.53 L Hgb 7.2 L Hct 23.0 L MCV 90.9 MCH 28.4 MCHC 31.3 L RDW 19.5 H Plt Count 530 H MPV 8.0 Prelim Diff (Auto) Slide review pending Neut % (Auto) 91.7 H Lymph % (Auto) 5.4 L [place] % (Auto) 2.5 Eos % (Auto) 0.2 Baso % (Auto) 0.2 Neut # (Auto) 28.8 H Lymph # (Auto) 1.7 [place] # (Auto) 0.8 Eos # (Auto) 0.1 Baso # (Auto) 0.1 WBC Differential Manual diff final Seg Neuts % (Manual) 75 H Band Neuts % (Manual) 9 H Lymphocytes % (Manual) 9 Monocytes % (Manual) 4 Metamyelocytes % (Man) 2 H Myelocytes % (Man) 1 H Abs Neuts (Manual) 27.3 H Differential Comment . Toxic Granulation 1+ H Platelet Estimate High H Platelet Morphology Normal Acanthocytes (Spur) 1+ H Keratocytes Occ H Sodium 141 Potassium 4.2 Chloride 112 H D Carbon Dioxide 16.8 L Anion Gap 12 BUN 72 H Creatinine 4.73 H Estimated GFR 11 L Random Glucose 120 H Calcium 8.0 L D Magnesium 1.7 Total Bilirubin 0.2 AST 14 L ALT 9 L Alkaline Phosphatase 119 H Total Protein 5.7 L D Albumin 1.4 L Lipase 68 L - Imaging Impressions GI Procedure 06/30/18 00:00 CONCLUSION: Spot fluoroscopic images during ERCP, as above. - Procedures GI Procedure 06/30/18 with IR An ERCP was performed by the ordering physician. The images demonstrate a metallic stent in the mid and distal common bile duct. The stent is traversed with a guidewire which extends into the intrahepatic bile ducts. The final image demonstrates a plastic stent within the metallic stent. The intrahepatic bile ducts do not appear to be significantly dilated <Jordana Sebastian - Last Filed: 07/01/18 12:22> - Labs CBC & Chem 7: 07/01/18 07:26 07/01/18 07:26 Laboratory Results - last 24 hr 07/01/18 07/01/18 07:26 07:26 WBC 31.4 H RBC 2.53 L Hgb 7.2 L Hct 23.0 L MCV 90.9 MCH 28.4 MCHC 31.3 L RDW 19.5 H Plt Count 530 H MPV 8.0 Prelim Diff (Auto) Slide review pending Neut % (Auto) 91.7 H Lymph % (Auto) 5.4 L [place] % (Auto) 2.5 Eos % (Auto) 0.2 Baso % (Auto) 0.2 Neut # (Auto) 28.8 H Lymph # (Auto) 1.7 [place] # (Auto) 0.8 Eos # (Auto) 0.1 Baso # (Auto) 0.1 WBC Differential Manual diff final Seg Neuts % (Manual) 75 H Band Neuts % (Manual) 9 H Lymphocytes % (Manual) 9 Monocytes % (Manual) 4 Metamyelocytes % (Man) 2 H Myelocytes % (Man) 1 H Abs Neuts (Manual) 27.3 H Differential Comment . Toxic Granulation 1+ H Platelet Estimate High H Platelet Morphology Normal Acanthocytes (Spur) 1+ H Keratocytes Occ H Sodium 141 Potassium 4.2 Chloride 112 H D Carbon Dioxide 16.8 L Anion Gap 12 BUN 72 H Creatinine 4.73 H Estimated GFR 11 L Random Glucose 120 H Calcium 8.0 L D Magnesium 1.7 Total Bilirubin 0.2 AST 14 L ALT 9 L Alkaline Phosphatase 119 H Total Protein 5.7 L D Albumin 1.4 L Lipase 68 L Microbiology 06/29/18 22:00 Clean Catch Urine Urine Culture - Preliminary No growth in 24 hours <Patrick Hernandez - Last Filed: 07/01/18 15:28> Assessment and Plan - Plan Assessment: - Idiopathic pancreatitis- well known to our service- follows Dr. Ortega outpatient Pt has had multiple stents placed- last ERCP done on May 23, inpatient by Dr. Lino --> A previously placed ampulla stent was seen via fluoroscopy and appeared migrated in. Multiple filling defects seen within the stent and distally. Ductal sweep done with 8 mm balloon, large amount of soft stones and debris removed. Plastic biliary stent placed 10 f 10cm to keep the lumen patent and open. Pt was recommended to have stent change with metallic one to cover the distal part of the CBD. Pt was seen by Dr. Ortega in the office two days ago and was advised to have labs done and repeat ERCP. No repeat labs seen in chart. Pt was advised if symptoms worsened to go to the ER. Pt presented to the ER yesterday with complaints of constant abdominal pain for the past three days, located mostly on the right side of her abdomen but radiates to the left side and all over her abdomen . Describes pain as aching. Does reports some associated nausea with emesis prior to arrival, denies hematemesis and coffee ground emesis. Of note, pts previous labs reviewed, her LFTs and bili never seem to elevate, but she has had elevation in Alk phos and lipase - Gastroparesis- Pt with GJ tube- continuous TF through J tube at night, G tube stays clamped. pt reports tolerating her tube feeds Cased discussed with Dr. Ortega, advising that plastic stent within pts metallic stent be removed and there is a possible need for a metallic stent to be placed within her already placed metallic stent leaving a stent slightly protruding from the ampulla 07/02/2018 patient is resting in the bed mild generalized weakness but no acute distress noted. Initial hemoglobin reviewed at 8.7 but now shows last result as 7.2. JG tube without any acute erythema at Nepro at 45 cc an hour. Patient also has renal diet and states that she is going to eat this a.m. we will continue to follow the previous tube feed and dietary recommendations .WBC count 30.1 unspecified. Patient states she has the urgency for bowel defecation now. Currently patient denies any nausea or vomiting. Patient is status post stent removal and placement of new stent ERCP. patient will need evaluation postop with GI to follow stent progression and removal in the future. Plan: Diet, GJ tube with Nepro at 45 cc an hour tube feed also patient is receiving renal diet, soft foods Creon, antibiotics and prednisone per attending, Bowel regimen, anti-emetics, PPI Monitor labs, transfuse as necessary Supportive care Pt seen per myself and Dr. Hernandez note written on his behalf <Jordana Sebastian - Last Filed: 07/01/18 12:22> - Plan Patient was seen and examined, agree with above note, drop her hemoglobin a little bit, most likely related to kidney dysfunction, we will review the hemoglobin tomorrow, as far as pancreatitis she still have mild abdominal effort which is chronic for her no new issues, liver function tests are okay <Patrick Hernandez - Last Filed: 07/01/18 15:28>
--- NOTE | 2018-07-01 12:31 | P.PNIM ---
Subjective Interval history: Patient s/p stent exchange by IR (07/01/18) patient resting in bed able to awaken to voice Endorse minimal abd discomfort reports that she tolerated PO intake for breakfast and lunch Physical Exam Vital signs: Vital Signs 06/30/18 13:17 06/30/18 13:18 06/30/18 13:30 Temperature 98.0 F Pulse Rate 80 80 Respiratory Rate 18 17 Blood Pressure 136/65 137/70 Pulse Oximetry 91 L 94 L 95 06/30/18 13:40 06/30/18 16:00 06/30/18 20:00 Temperature 98.0 F 97.5 F L 97.7 F Pulse Rate 79 84 86 Respiratory Rate 18 16 20 Blood Pressure 139/65 133/60 123/59 L Pulse Oximetry 95 98 94 L 06/30/18 22:34 07/01/18 00:00 07/01/18 04:00 Temperature 98.1 F 97.8 F Pulse Rate 76 77 Respiratory Rate 21 19 Blood Pressure 107/61 118/56 L Pulse Oximetry 94 L 96 95 07/01/18 08:00 Temperature 97.4 F L Pulse Rate 83 Respiratory Rate 18 Blood Pressure 119/57 L Pulse Oximetry 97 Intake & Output 06/30/18 07/01/18 07/01/18 18:59 06:59 18:59 Intake Total 1600 / 1600 1235 / 1235 100 / 100 Balance 1600 / 1600 1235 / 1235 100 / 100 Intake: IV 1100 / 1100 1235 / 1235 100 / 100 1/2 Normal Saline Inj 1,000 ML 1000 / 1000 985 / 985 @ 125 mls/hr IV.CONT .Q8H [facility] Rx#:[id number] Azithromycin Inj 500 MG In NS 250 / 250 Inj 250 ML @ 250 mls/hr IV.SIG Q24H [facility] Rx#:[id number] Maxipime Inj 1,000 MG In NS Inj 100 / 100 100 / 100 100 ML @ 200 mls/hr IV.SIG Q12H [facility] Rx#:[id number] Anesthesia Amount 500 / 500 Other: # Voids 2 Date of Last Bowel Movement 07/01/18 Narrative: GENERAL: 82 year old female in no acute distress. CARDIO: Regular RESP: clear x b/l ABD: Abdomen soft, mild tenderness on palpation GJ tube in place, no drainage or erythema EXT: No cyanosis, or edema. Results - Labs CBC & Chem 7: 07/02/18 08:30 07/02/18 08:30 Laboratory Results - last 24 hr 07/01/18 07/01/18 07:26 07:26 WBC 31.4 H RBC 2.53 L Hgb 7.2 L Hct 23.0 L MCV 90.9 MCH 28.4 MCHC 31.3 L RDW 19.5 H Plt Count 530 H MPV 8.0 Prelim Diff (Auto) Slide review pending Neut % (Auto) 91.7 H Lymph % (Auto) 5.4 L Ford % (Auto) 2.5 Eos % (Auto) 0.2 Baso % (Auto) 0.2 Neut # (Auto) 28.8 H Lymph # (Auto) 1.7 Ford # (Auto) 0.8 Eos # (Auto) 0.1 Baso # (Auto) 0.1 WBC Differential Manual diff final Seg Neuts % (Manual) 75 H Band Neuts % (Manual) 9 H Lymphocytes % (Manual) 9 Monocytes % (Manual) 4 Metamyelocytes % (Man) 2 H Myelocytes % (Man) 1 H Abs Neuts (Manual) 27.3 H Differential Comment . Toxic Granulation 1+ H Platelet Estimate High H Platelet Morphology Normal Acanthocytes (Spur) 1+ H Keratocytes Occ H Sodium 141 Potassium 4.2 Chloride 112 H D Carbon Dioxide 16.8 L Anion Gap 12 BUN 72 H Creatinine 4.73 H Estimated GFR 11 L Random Glucose 120 H Calcium 8.0 L D Magnesium 1.7 Total Bilirubin 0.2 AST 14 L ALT 9 L Alkaline Phosphatase 119 H Total Protein 5.7 L D Albumin 1.4 L Lipase 68 L - Imaging Impressions GI Procedure 06/30/18 00:00 CONCLUSION: Spot fluoroscopic images during ERCP, as above. - Procedures GI Procedure 06/30/18 with IR An ERCP was performed by the ordering physician. The images demonstrate a metallic stent in the mid and distal common bile duct. The stent is traversed with a guidewire which extends into the intrahepatic bile ducts. The final image demonstrates a plastic stent within the metallic stent. The intrahepatic bile ducts do not appear to be significantly dilated Assessment and Plan - Assessment (1) Idiopathic pancreatitis Code(s): K85.00 - Idiopathic acute pancreatitis without necrosis or infection Status: Chronic Plan: Idiopathic pancreatitis - Ms. Larsen is an 82 y/o AAF with recurrent idiopathic pancreatitis. She has been hospitalized numerous times for issues with pain control related to recurrent pancreatitis. Her last admission was from 03/03/18 to 03/28/18 and she had biliary obstruction at that time. - During that admission she underwent evaluation with ERCP (03/03/18) which noted multiple stones, migrated metal stent up into CBD, could not put plastic stent due to "kink" in current stent according to GI notes. She required PTC placement on 03/04 by IR which noted severe obstruction of the proximal common bile duct stent with very challenging recanalization requiring multiple wires and catheters. biliary stent placement. She had to have a repeat ERCP (03/07/18) and had to have the metal stent cleared of debris and they were able to confirm complete clearance of the stent with good emptying through the stent. She had a percutaneous cholangiogram on 03/09/18 where the external portion of biliary drain was removed and the report showed some small hyperplasia within the distal aspect of the biliary stent but there is a patent channel down to the small bowel. -s/p ercp 05/23 with balloon sweep of stone fragments/debris from metal stent and placement of new stent - GJ tube exchange 710 with IR -mesenteric angio with IR 05/24. patent vessels. - Pt presented back to the ED at [facility] [place] on 06/29/18 with continued abdominal pain that is similar to her previous pancreatitis pain. - Her labs in the ED revealed WBC count 30.1, Cr 5.57 /BUN 73, Lipase 234, TBili 0.3, AST 15, ALT 11, AlkPhos 139. Abdomen/Pelvis CT 06/29/18 reveals: 1. Biliary stent with interval Silastic stent. Air in the left hepatic ducts. 2. I don't see an etiology for the patient's right-sided abdominal pain. Lack of intravenous and oral contrast makes detection of subtle abnormalities difficult 3. Inflammatory processes such as pyonephritis cannot be excluded. GI Procedure 06/30/18 with IR An ERCP was performed by the ordering physician. The images demonstrate a metallic stent in the mid and distal common bile duct. The stent is traversed with a guidewire which extends into the intrahepatic bile ducts. The final image demonstrates a plastic stent within the metallic stent. The intrahepatic bile ducts do not appear to be significantly dilated - Pain control with Morphine and Check PRN - zofran as need for N/V - Tolerating Nepro TF at 45ml/hour - continue on Azithromycin and cefepime will continue - (07/01) WBC increased to 31.4, likely inflammatory - Added IV solumedrol (07/01) - blood cultures pending - obtain repeat CBC, CMP, Mag, lipase in AM - Supportive care - DVT prophylaxis with SCDs Acute on chronic kidney failure - Pt with baseline stage 3 CKD, pt follows with Dr. Melara - Her labs at admission noted acute worsening BUN 73 and creatinine 5.57 estimated GFR 9 -> (07/01) BUN 72, creatinine 4.73, GFR 11 - 1/2 NS at 125ml/H - Nephrology also following - Avoid nephrotoxic agents UTI - iv fluids follow labs - continue antibiotics - urine culture pending HTN (hypertension) - Cont. home meds - Monitor GERD (gastroesophageal reflux disease) - PPI Anemia - Pt with an acute decrease in her chronic anemia - on admission patient's Hgb DVT prophylaxis with SCDs (2) History of biliary stent insertion Code(s): Z98.890 - Other specified postprocedural states Status: Acute (3) Acute on chronic kidney failure Code(s): N17.9 - Acute kidney failure, unspecified; N18.9 - Chronic kidney disease, unspecified Status: Acute (4) Gastroparesis Code(s): K31.84 - Gastroparesis Status: Acute - Attending Attestation Patient examined. Assessment and plan formulated with Olga Weiss PA-C. I agree with the above. (1) Idiopathic pancreatitis Qualifiers: (3) Acute on chronic kidney failure Qualifiers: Acute renal failure type: unspecified Chronic kidney disease stage: unspecified stage Qualified Code(s): N17.9 - Acute kidney failure, unspecified ; N18.9 - Chronic kidney disease, unspecified
[2018-07-01] MEDS: MethylPREDNISolone Sod Succinate Inj 125 MG/2 ML Vial IV.PUSH SCH ×2 (13:14→18:15)
--- NOTE | 2018-07-01 16:52 | P.PNNP ---
Subjective Interval history: 82 year old with abdominal pain biliary stent removal, she raymond ARF/CKD UTI Physical Exam Vital signs: Vital Signs 06/30/18 20:00 06/30/18 22:34 07/01/18 00:00 Temperature 97.7 F 98.1 F Pulse Rate 86 76 Respiratory Rate 20 21 Blood Pressure 123/59 L 107/61 Pulse Oximetry 94 L 94 L 96 07/01/18 04:00 07/01/18 08:00 07/01/18 13:50 Temperature 97.8 F 97.4 F L 97.7 F Pulse Rate 77 83 86 Respiratory Rate 19 18 20 Blood Pressure 118/56 L 119/57 L 119/67 Pulse Oximetry 95 97 98 Intake & Output 06/30/18 07/01/18 07/01/18 18:59 06:59 18:59 Intake Total 1600 / 1600 1235 / 1235 100 / 100 Balance 1600 / 1600 1235 / 1235 100 / 100 Intake: IV 1100 / 1100 1235 / 1235 100 / 100 1/2 Normal Saline Inj 1,000 ML 1000 / 1000 985 / 985 @ 125 mls/hr IV.CONT .Q8H [facility] Rx#:[id number] Azithromycin Inj 500 MG In NS 250 / 250 Inj 250 ML @ 250 mls/hr IV.SIG Q24H [facility] Rx#:[id number] Maxipime Inj 1,000 MG In NS Inj 100 / 100 100 / 100 100 ML @ 200 mls/hr IV.SIG Q12H [facility] Rx#:[id number] Anesthesia Amount 500 / 500 Other: # Voids 2 Date of Last Bowel Movement 07/01/18 - Constitutional no acute distress - Routine HEENT Exam Head: Present: normocephalic Eye: Present: EOMI - Routine Respiratory Exam Present: CTA bilaterally - Routine Cardiovascular Exam Present: RRR - Routine Abdominal Exam Present: tenderness - Routine Extremities Exam Present: pulses intact - Routine Neurological Exam Present: alert, oriented X3 Assessment and Plan - Assessment (1) Acute UTI Code(s): N39.0 - Urinary tract infection, site not specified Status: Acute (2) Abdominal pain Code(s): R10.9 - Unspecified abdominal pain Status: Acute (3) Acute on chronic kidney failure Code(s): N17.9 - Acute kidney failure, unspecified; N18.9 - Chronic kidney disease, unspecified Status: Acute Qualifiers: Acute renal failure type: unspecified Chronic kidney disease stage: unspecified stage Qualified Code(s): N17.9 - Acute kidney failure, unspecified ; N18.9 - Chronic kidney disease, unspecified (4) Idiopathic pancreatitis Code(s): K85.00 - Idiopathic acute pancreatitis without necrosis or infection Status: Chronic Qualifiers: - Plan Continue with the hydration and IV antibiotics continue monitor BMP Aortic nephrotoxins Monitor intake and output Creatinine declined urine culture negative Follow BMP
[2018-07-02] MEDS: Azithromycin Inj 500 MG in Sodium Chlor 0.9% Inj 250 ML IV.SIG SCH (00:33)
[2018-07-02] MEDS: MethylPREDNISolone Sod Succinate Inj 125 MG/2 ML Vial IV.PUSH SCH ×4 (00:33→17:11)
[2018-07-02] MEDS: Sodium Chloride 0.45 % Inj 1,000 ML IV.CONT SCH ×2 (04:07→09:54)
[2018-07-02 09:43] LABS: Baso # (Auto) 0.1 th/mm3 (0.0-0.2); Baso % (Auto) 0.3 % (0.0-2.0); Eos # (Auto) 0.1 th/mm3 (0.0-0.4); Eos % (Auto) 0.5 % (0.0-4.0); Hemoglobin 7.2 gm/dL (11.6-15.3); Lymph % (Auto) 4.4 % (9.0-44.0); Mean Corpuscular HGB Conc 31.2 % (32.0-36.0); Mean Corpuscular Hemoglobin 28.2 pg (27.0-34.0); Mean Corpuscular Volume 90.3 fL (80.0-100.0); Mean Platelet Volume 7.9 fL (7.0-11.0); Mono # (Auto) 0.2 th/mm3 (0.0-0.9); Mono % (Auto) 0.9 % (0.0-8.0); Neut # (Auto) 22.6 th/mm3 (1.8-7.7); Neut % (Auto) 93.9 % (16.0-70.0); Platelet Count 502 th/mm3 (150-450); Red Blood Count 2.55 mil/mm3 (4.00-5.30); Red Cell Distribution Width 19.7 % (11.6-17.2)
[2018-07-02] MEDS: Senna/Docusate Sodium 8.6/50 MG Tablet PO SCH ×2 (09:54→23:05)
[2018-07-02] MEDS: Lipase/Protease/Amylase 12/38/60 DR Capsule PO SCH ×3 (09:54→19:43)
[2018-07-02] MEDS: Simethicone 125 MG Chew Tablet PO SCH ×3 (09:54→17:10)
[2018-07-02] MEDS: Metoprolol Tartrate 25 MG Tablet PO SCH ×2 (09:54→23:05)
[2018-07-02] MEDS: amLODIPine 5 MG Tablet PO SCH (09:54)
[2018-07-02] MEDS: Sucralfate 1 GM Tablet PO SCH ×3 (09:54→17:10)
[2018-07-02 09:56] LABS: Albumin 1.5 g/dL (3.4-5.0); Anion Gap 15 meq/L (5-15); Aspartate Aminotransferase 14 U/L (15-37); Blood Urea Nitrogen 81 mg/dL (7-18); Calcium 8.2 mg/dL (8.5-10.1); Carbon Dioxide 14.7 meq/L (21.0-32.0); Chloride 109 meq/L (98-107); Glomerular Filtration Rate 11 mL/min (>89); Glucose,Random 141 mg/dL (74-106); Lipase 42 U/L (73-393); Potassium 3.6 meq/L (3.5-5.1)
[2018-07-02 09:59] LABS: Alanine Aminotransferase 10 U/L (10-53); Alkaline Phosphatase 94 U/L (45-117); Total Protein 5.6 g/dL (6.4-8.2)
[2018-07-02 10:01] LABS: Sodium 139 meq/L (136-145)
[2018-07-02 11:24] LABS: Lymphocytes 8 % (9-44); Metamyelocytes 3 % (0-1)
[2018-07-02 11:25] LABS: Acanthocytes Occ; Platelet Morphology Normal (Normal); Toxic Granulation 2+
--- NOTE | 2018-07-02 11:55 | CT ---
EXAM DATE: 07/02/2018 11:49 AM EDT AGE/SEX: 82 years / Female INDICATIONS: Altered mental status. Fall. CLINICAL DATA: This is the patient's initial encounter. Patient reports that signs and symptoms have been present for 1 day and indicates a pain score of 0/10. MEDICAL/SURGICAL HISTORY: Pancreatitis. Hypertension. Gastroesophageal reflux disease. Cholecyste ctomy. RADIATION DOSE: 33.29 CTDI (mGy) COMPARISON: [facility] [place] BRAIN W/O CONTRAST, 09/18/2017. . TECHNIQUE: CT of the head without contrast. Using automated exposure control and adjustment of the mA and/or kV according to patient size, radiation dose was kept as low as reasonably achievable to ob tain optimal diagnostic quality images. DICOM format image data is available electronically for revi ew and comparison. FINDINGS: Cerebrum: Diffuse prominence of the ventricles, sulci, and cisterns indicating diffuse atrophy. Atro phy is more prominent in the frontal lobes. No evidence of midline shift, mass lesion, hemorrhage or acute infarction. No extraaxial fluid collections are seen. Posterior Fossa: The cerebellum and brainstem are intact. The 4th ventricle is midline. The cerebe llopontine angle is unremarkable. Extracranial: The visualized portion of the orbits is intact. Skull: The calvaria is intact. No evidence of skull fracture. CONCLUSION: No acute intracranial findings. . Electronically signed by: Tye Dunham MD 07/02/2018 11:54 AM EDT
--- NOTE | 2018-07-02 13:57 | P.PNNP ---
Subjective Interval history: no acute complaints, had some juice earlier Physical Exam Vital signs: Vital Signs 07/01/18 16:00 07/01/18 18:26 07/01/18 20:00 Temperature 97.7 F 98 F Pulse Rate 91 H 72 Respiratory Rate 20 12 18 Blood Pressure 138/69 122/68 Pulse Oximetry 100 99 07/02/18 00:00 07/02/18 03:37 07/02/18 04:00 Temperature 97.8 F 97.9 F Pulse Rate 69 107 H Respiratory Rate 18 16 18 Blood Pressure 119/68 155/88 H Pulse Oximetry 99 100 07/02/18 05:23 07/02/18 07:00 07/02/18 08:00 Temperature 97.9 F 97.5 F L Pulse Rate 107 H 89 Respiratory Rate 18 12 20 Blood Pressure 155/88 H 150/80 H Pulse Oximetry 100 100 Intake & Output 07/01/18 07/02/18 07/02/18 18:59 06:59 18:59 Intake Total 1540 / 1540 350 / 350 1000 / 1000 Output Total 2 / 2 Balance 1540 / 1540 350 / 350 998 / 998 Intake: IV 1100 / 1100 350 / 350 1000 / 1000 1/2 Normal Saline Inj 1,000 ML 1000 / 1000 1000 / 1000 @ 125 mls/hr IV.CONT .Q8H [facility] Rx#:[id number] Azithromycin Inj 500 MG In NS 250 / 250 Inj 250 ML @ 250 mls/hr IV.SIG Q24H [facility] Rx#:[id number] Maxipime Inj 1,000 MG In NS Inj 100 / 100 100 / 100 100 ML @ 200 mls/hr IV.SIG Q12H [facility] Rx#:[id number] Oral 240 / 240 Water Bolus Amount 200 / 200 Output: Stool 2 / 2 Other: # Voids 1 Date of Last Bowel Movement 07/01/18 07/02/18 # Bowel Movements 1 - Constitutional no acute distress - Routine HEENT Exam Head: Present: normocephalic Eye: Present: EOMI ENT: Present: mucous membranes moist - Routine Neck Exam Present: supple - Routine Respiratory Exam Present: decreased breath sounds - Routine Cardiovascular Exam Present: RRR - Routine Abdominal Exam Present: soft - Routine Skin Exam Present: intact - Routine Neurological Exam Present: alert, oriented X3 - Detailed Neurological Exam: Coma Scale Eye Opening: Spontaneous - Routine Psychiatric Exam Present: normal affect Assessment and Plan - Assessment (1) Acute UTI Code(s): N39.0 - Urinary tract infection, site not specified Status: Acute (2) Abdominal pain Code(s): R10.9 - Unspecified abdominal pain Status: Acute (3) Acute on chronic kidney failure Code(s): N17.9 - Acute kidney failure, unspecified; N18.9 - Chronic kidney disease, unspecified Status: Acute Qualifiers: Acute renal failure type: unspecified Chronic kidney disease stage: unspecified stage Qualified Code(s): N17.9 - Acute kidney failure, unspecified ; N18.9 - Chronic kidney disease, unspecified (4) Idiopathic pancreatitis Code(s): K85.00 - Idiopathic acute pancreatitis without necrosis or infection Status: Chronic Qualifiers: - Plan Continue with the hydration and IV antibiotics continue monitor BMP Creatinine slowly improvin.7 ->4.5 Now with acidosis - will add NaHCO3 to IVFs Patient voiding Aortic nephrotoxins Monitor intake and output Follow BMP
--- NOTE | 2018-07-02 15:42 | P.PNIM ---
Subjective Interval history: Pt fell overnight. Nursing c/o AMS, CT brain (07/02) --> no new findings during rounds, pt's mentation seems decreased from yesterday. Pt is confused from her baseline. Physical Exam Vital signs: 07/02/18 05:23 07/02/18 07:00 07/02/18 08:00 Temperature 97.9 F 97.5 F L Pulse Rate 107 H 89 Respiratory Rate 18 12 20 Blood Pressure 155/88 H 150/80 H Pulse Oximetry 100 100 Narrative: GENERAL: 82 year old female in no acute distress. CARDIO: Regular RESP: clear x b/l ABD: Abdomen soft, mild tenderness on palpation GJ tube in place, no drainage or erythema EXT: No cyanosis, or edema. Neuro: A&Ox2 with confusion, CUMMINS Pt is able to follow most simple commands. Results - Labs CBC & Chem 7: 07/02/18 08:30 07/02/18 08:30 Microbiology 07/01/18 13:46 Blood - Peripheral Aerobic Blood Culture - Preliminary No growth in 1 day 07/01/18 13:46 Blood - Peripheral Anaerobic Blood Culture - Preliminary No growth in 1 day 07/01/18 12:18 Blood - Peripheral Aerobic Blood Culture - Preliminary No growth in 1 day 07/01/18 12:18 Blood - Peripheral Anaerobic Blood Culture - Preliminary No growth in 1 day 06/29/18 22:00 Clean Catch Urine Urine Culture - Final No growth in 48 hours - Imaging Abdomen/Pelvis CT 06/29/18 20:27 CONCLUSION: 1. Biliary stent with interval Silastic stent. Air in the left hepatic ducts. 2. I don't see an etiology for the patient's right-sided abdominal pain. Lack of intravenous and oral contrast makes detection of subtle abnormalities difficult 3. . Inflammatory processes such as pyonephritis cannot be excluded. Chest X-Ray 06/29/18 20:27 CONCLUSION: Linear areas of atelectasis or scarring. These are stable. No new or acute abnormality is seen. GI Procedure 06/30/18 00:00 CONCLUSION: Spot fluoroscopic images during ERCP, as above. Head CT 07/02/18 11:14 CONCLUSION: No acute intracranial findings. . - Procedures GI Procedure 06/30/18 with IR An ERCP was performed by the ordering physician. The images demonstrate a metallic stent in the mid and distal common bile duct. The stent is traversed with a guidewire which extends into the intrahepatic bile ducts. The final image demonstrates a plastic stent within the metallic stent. The intrahepatic bile ducts do not appear to be significantly dilated Assessment and Plan - Assessment (1) Idiopathic pancreatitis Code(s): K85.00 - Idiopathic acute pancreatitis without necrosis or infection Status: Chronic Plan: Idiopathic pancreatitis - Ms. Larsen is an 82 y/o AAF with recurrent idiopathic pancreatitis. She has been hospitalized numerous times for issues with pain control related to recurrent pancreatitis. Her last admission was from 03/03/18 to 03/28/18 and she had biliary obstruction at that time. - During that admission she underwent evaluation with ERCP (03/03/18) which noted multiple stones, migrated metal stent up into CBD, could not put plastic stent due to "kink" in current stent according to GI notes. She required PTC placement on 03/04 by IR which noted severe obstruction of the proximal common bile duct stent with very challenging recanalization requiring multiple wires and catheters. biliary stent placement. She had to have a repeat ERCP (03/07/18) and had to have the metal stent cleared of debris and they were able to confirm complete clearance of the stent with good emptying through the stent. She had a percutaneous cholangiogram on 03/09/18 where the external portion of biliary drain was removed and the report showed some small hyperplasia within the distal aspect of the biliary stent but there is a patent channel down to the small bowel. -s/p ercp 05/23 with balloon sweep of stone fragments/debris from metal stent and placement of new stent - GJ tube exchange 710 with IR -mesenteric angio with IR 05/24. patent vessels. - Pt presented back to the ED at [facility] [place] on 06/29/18 with continued abdominal pain that is similar to her previous pancreatitis pain. - Her labs in the ED revealed WBC count 30.1, Cr 5.57 /BUN 73, Lipase 234, TBili 0.3, AST 15, ALT 11, AlkPhos 139. Abdomen/Pelvis CT 06/29/18 reveals: 1. Biliary stent with interval Silastic stent. Air in the left hepatic ducts. 2. I don't see an etiology for the patient's right-sided abdominal pain. Lack of intravenous and oral contrast makes detection of subtle abnormalities difficult 3. Inflammatory processes such as pyonephritis cannot be excluded. GI Procedure 06/30/18 with IR An ERCP was performed by the ordering physician. The images demonstrate a metallic stent in the mid and distal common bile duct. The stent is traversed with a guidewire which extends into the intrahepatic bile ducts. The final image demonstrates a plastic stent within the metallic stent. The intrahepatic bile ducts do not appear to be significantly dilated - Pain control with Morphine and Carrizozo PRN - zofran as need for N/V - J-tube is NOT flushing, nepro is on hold - IR consult to assess J-tube, likely will happen 07/04/18 - Azithromycin and cefepime, stopped. No indication of infection. No fever. No cough, no dysuria - (07/01) WBC increased to 31.4, likely inflammatory - Added IV solumedrol (07/01) - WBC (07/02) 24K - blood cultures (07/01) --> NGTD - urine cx (06/29) --> no growth - Supportive care - DVT prophylaxis with SCDs AMS - CT brain (07/02) --> NO acute findings - obtain TSH, free T4, b12, folate - obtain MRI brain Acute on chronic kidney failure - Pt with baseline stage 3 CKD, pt follows with Dr. Melara - Her labs at admission noted acute worsening BUN 73 and creatinine 5.57 estimated GFR 9 -> (07/01) BUN 72, creatinine 4.73, GFR 11 - Cr 4.53 (07/02) - continue 1/2 NS at 125ml/H with NAbicarb - Nephrology also following - Avoid nephrotoxic agents UTI - see above HTN (hypertension) - Cont. home meds - Monitor GERD (gastroesophageal reflux disease) - PPI Anemia - Pt with an acute decrease in her chronic anemia - on admission patient's Hgb - obtain iron indices - transfuse 2 units. DVT prophylaxis with SCDs (2) History of biliary stent insertion Code(s): Z98.890 - Other specified postprocedural states Status: Acute Plan: (1) Idiopathic pancreatitis - Ms. Larsen is an 82 y/o AAF with recurrent idiopathic pancreatitis. She has been hospitalized numerous times for issues with pain control related to recurrent pancreatitis. Her last admission was from 03/03/18 to 03/28/18 and she had biliary obstruction at that time. - During that admission she underwent evaluation with ERCP (03/03/18) which noted multiple stones, migrated metal stent up into CBD, could not put plastic stent due to "kink" in current stent according to GI notes. She required PTC placement on 03/04 by IR which noted severe obstruction of the proximal common bile duct stent with very challenging recanalization requiring multiple wires and catheters. biliary stent placement. She had to have a repeat ERCP (03/07/18) and had to have the metal stent cleared of debris and they were able to confirm complete clearance of the stent with good emptying through the stent. She had a percutaneous cholangiogram on 03/09/18 where the external portion of biliary drain was removed and the report showed some small hyperplasia within the distal aspect of the biliary stent but there is a patent channel down to the small bowel. -s/p ercp 05/23 with balloon sweep of stone fragments/debris from metal stent and placement of new stent - GJ tube exchange 710 with IR -mesenteric angio with IR 05/24. patent vessels. - Pt presented back to the ED at [facility] [place] on 06/29/18 with continued abdominal pain that is similar to her previous pancreatitis pain. - Her labs in the ED revealed WBC count , Cr /BUN , Lipase . TBili , AST , ALT , AlkPhos . Abdomen/Pelvis CT 06/29/18 reveals: 1. Biliary stent with interval Silastic stent. Air in the left hepatic ducts. 2. I don't see an etiology for the patient's right-sided abdominal pain. Lack of intravenous and oral contrast makes detection of subtle abnormalities difficult 3. . Inflammatory processes such as pyonephritis cannot be excluded. GI Procedure 06/30/18 with IR An ERCP was performed by the ordering physician. The images demonstrate a metallic stent in the mid and distal common bile duct. The stent is traversed with a guidewire which extends into the intrahepatic bile ducts. The final image demonstrates a plastic stent within the metallic stent. The intrahepatic bile ducts do not appear to be significantly dilated - Pain control PRN with Carrizozo PRN - zofran as need for N/V - obtain repeat CBC, CMP, Mag, lipase in AM - will try to resume Nepro TF at 15ml/hour and slowly titrate back to 45ml/hour - Supportive care - DVT prophylaxis with SCDs - Dr. Eddy will discuss with Pt/daughter, Caitlyn, (by phone) later today (2) Acute on chronic kidney failure - Pt with baseline stage 3 CKD, pt follows with Dr. Melara - Her labs at admission with a noted acute worsening of her baseline CKD. - consultation placed to Nephrology - Avoid nephrotoxic agents (3) HTN (hypertension) - Cont. home meds - Monitor (4) GERD (gastroesophageal reflux disease) - PPI (5) Anemia - Pt with an acute decrease in her chronic anemia - on admission patient's Hgb DVT prophylaxis with SCDs (3) Acute on chronic kidney failure Code(s): N17.9 - Acute kidney failure, unspecified; N18.9 - Chronic kidney disease, unspecified Status: Acute (4) Gastroparesis Code(s): K31.84 - Gastroparesis Status: Acute - Plan Patient examined. Assessment and plan formulated with Olga Weiss PA-C. I agree with the above. (1) Idiopathic pancreatitis Qualifiers: (3) Acute on chronic kidney failure Qualifiers: Acute renal failure type: unspecified Chronic kidney disease stage: unspecified stage Qualified Code(s): N17.9 - Acute kidney failure, unspecified ; N18.9 - Chronic kidney disease, unspecified
[2018-07-02] MEDS ORDERED: Sodium Chlor 0.9% Inj 250 ML IV.SIG SCH (16:00)
--- NOTE | 2018-07-02 16:04 | P.PNGI ---
Physical Exam Vital signs: Vital Signs 07/01/18 16:00 07/01/18 18:26 07/01/18 20:00 Temperature 97.7 F 98 F Pulse Rate 91 H 72 Respiratory Rate 20 12 18 Blood Pressure 138/69 122/68 Pulse Oximetry 100 99 07/02/18 00:00 07/02/18 03:37 07/02/18 04:00 Temperature 97.8 F 97.9 F Pulse Rate 69 107 H Respiratory Rate 18 16 18 Blood Pressure 119/68 155/88 H Pulse Oximetry 99 100 07/02/18 05:23 07/02/18 07:00 07/02/18 08:00 Temperature 97.9 F 97.5 F L Pulse Rate 107 H 89 Respiratory Rate 18 12 20 Blood Pressure 155/88 H 150/80 H Pulse Oximetry 100 100 Intake & Output 07/01/18 07/02/18 07/02/18 18:59 06:59 18:59 Intake Total 1540 / 1540 350 / 350 1000 / 1000 Output Total 2 / 2 Balance 1540 / 1540 350 / 350 998 / 998 Intake: IV 1100 / 1100 350 / 350 1000 / 1000 1/2 Normal Saline Inj 1,000 ML 1000 / 1000 1000 / 1000 @ 125 mls/hr IV.CONT .Q8H [facility] Rx#:[id number] Azithromycin Inj 500 MG In NS 250 / 250 Inj 250 ML @ 250 mls/hr IV.SIG Q24H [facility] Rx#:[id number] Maxipime Inj 1,000 MG In NS Inj 100 / 100 100 / 100 100 ML @ 200 mls/hr IV.SIG Q12H H[facility]ESH Rx#:[id number] Oral 240 / 240 Water Bolus Amount 200 / 200 Output: Stool 2 / 2 Other: # Voids 1 Date of Last Bowel Movement 07/01/18 07/02/18 # Bowel Movements 1 Results - Labs CBC & Chem 7: 07/02/18 08:30 07/02/18 08:30 Laboratory Results - last 24 hr 07/02/18 07/02/18 07/02/18 08:30 08:30 15:37 WBC 24.0 H RBC 2.55 L Hgb 7.2 L Hct 23.0 L MCV 90.3 MCH 28.2 MCHC 31.2 L RDW 19.7 H Plt Count 502 H MPV 7.9 Prelim Diff (Auto) Slide review pending Neut % (Auto) 93.9 H Lymph % (Auto) 4.4 L [place] % (Auto) 0.9 Eos % (Auto) 0.5 Baso % (Auto) 0.3 Neut # (Auto) 22.6 H Lymph # (Auto) 1.0 [place] # (Auto) 0.2 Eos # (Auto) 0.1 Baso # (Auto) 0.1 WBC Differential Manual diff final Seg Neuts % (Manual) 68 Band Neuts % (Manual) 21 H Lymphocytes % (Manual) 8 L Metamyelocytes % (Man) 3 H Abs Neuts (Manual) 22.1 H Differential Comment . Toxic Granulation 2+ H Platelet Estimate High H Platelet Morphology Normal Acanthocytes (Spur) Occ H Keratocytes Occ H Sodium 139 Potassium 3.6 Chloride 109 H Carbon Dioxide 14.7 L Anion Gap 15 BUN 81 H Creatinine 4.53 H Estimated GFR 11 L POC Glucose 151 H Random Glucose 141 H Calcium 8.2 L Total Bilirubin 0.1 L AST 14 L ALT 10 Alkaline Phosphatase 94 Total Protein 5.6 L Albumin 1.5 L Lipase 42 L Microbiology 07/01/18 13:46 Blood - Peripheral Aerobic Blood Culture - Preliminary No growth in 1 day 07/01/18 13:46 Blood - Peripheral Anaerobic Blood Culture - Preliminary No growth in 1 day 07/01/18 12:18 Blood - Peripheral Aerobic Blood Culture - Preliminary No growth in 1 day 07/01/18 12:18 Blood - Peripheral Anaerobic Blood Culture - Preliminary No growth in 1 day 06/29/18 22:00 Clean Catch Urine Urine Culture - Final No growth in 48 hours - Imaging Impressions Head CT 07/02/18 11:14 CONCLUSION: No acute intracranial findings. . - Procedures GI Procedure 06/30/18 with IR An ERCP was performed by the ordering physician. The images demonstrate a metallic stent in the mid and distal common bile duct. The stent is traversed with a guidewire which extends into the intrahepatic bile ducts. The final image demonstrates a plastic stent within the metallic stent. The intrahepatic bile ducts do not appear to be significantly dilated Assessment and Plan - Plan 07/01/2018 patient is resting in the bed mild generalized weakness but no acute distress noted. Initial hemoglobin reviewed at 8.7 but now shows last result as 7.2. GJ tube without any acute erythema at [facility] at 45 cc an hour. Patient also has renal diet and states that she is going to eat this a.m. we will continue to follow the previous tube feed and dietary recommendations .WBC count 30.1 unspecified. Patient states she has the urgency for bowel defecation now. Currently patient denies any nausea or vomiting. Patient is status post stent removal and placement of new stent ERCP. patient will need evaluation postop with GI to follow stent progression and removal in the future. 07/02/2018 according to staff patient had fall approximately over 400 today. Questionable GJ tube displacement. Planning to evaluate an INR today. Current feedings off for now. Patient does appear to have some mild anxiety and increased confusion today during my visit. Calling out wanting to see her family current hemoglobin 7.2. Abdomen is soft without any obvious changes or pain to palpation. Lipase level normalized 42. Patient's pancreatitis is chronic, current need is to evaluate her nutritional needs. Plan: Diet n.p.o. for now per GJ tube Creon, antibiotics and prednisone per attending, Bowel regimen, anti-emetics, PPI Monitor labs, transfuse as necessary Consider abdominal CT scan if patient's begins to have acute abdominal pain Supportive care Patient was seen per Dr. Musa and myself, note was written on his behalf
--- NOTE | 2018-07-02 16:48 | MR ---
EXAM DATE: 07/02/2018 4:43 PM EDT AGE/SEX: 82 years / Female INDICATIONS: Altered mental status. CLINICAL DATA: This is the patient's initial encounter. Patient reports that signs and symptoms have been present for 1 day and indicates a pain score of 0/10. MEDICAL/SURGICAL HISTORY: Hypertension. Chronic renal failure. Total knee replacement, right. Cholecystectomy. Biliary stent. COMPARISON: [facility] [place], CT HEAD W/O CONTRAST, 07/02/2018. . TECHNIQUE: Multiplanar, multisequence examination of the brain was performed without contrast. FINDINGS: Cerebrum: Moderate diffuse cerebral atrophy. The ventricles are normal for degree of atrophy. No ev idence of midline shift, mass lesion, hemorrhage or acute infarction. No extraaxial fluid collection s are seen. The pituitary gland and suprasellar cistern are normal in configuration. White Matter: Mild periventricular and deep white matter T2 prolongation. Posterior Fossa: The cerebellum and brainstem are intact. The 4th ventricle is midline. The cerebel lopontine angle is unremarkable. The cerebellar tonsils are normal in position. Diffusion Imaging: No focal areas of restricted diffusion are seen. No evidence of acute infarction . Extracranial: The visualized portions of the orbits and paranasal sinuses are unremarkable. CONCLUSION: 1. Senescent changes without acute abnormality. 2. Specifically, no evidence for acute infarction, hemorrhage or mass. Electronically signed by: Bhavin Montemayor MD 07/02/2018 4:46 PM EDT
[2018-07-02] MEDS: Sodium Bicarbonate 8.4% Inj 75 MEQ in Sodium Chloride 0.45 % Inj 1,000 ML IV.CONT SCH ×2 (17:10→23:06)
[2018-07-02 17:23] LABS: Reticulocyte Percent 1.2 % (0.4-3.0)
--- NOTE | 2018-07-02 18:05 | MB ---
cc: Omar Kline MD, PhD DATE: 07/02/2018 REASON FOR CONSULTATION: Mental status change. HISTORY OF PRESENT ILLNESS: Ms. Larsen is an 82-year-old woman with recurrent pancreatitis. She was noted to have acute mental status change today, being less responsive and confused. There is no seizure-like activity. No focal deficits. PAST MEDICAL HISTORY: History of recurrent pancreatitis, gastroparesis, J-tube for feeding, multiple biliary stents. She is admitted at this time with constant abdominal pain for several days. She has chronic kidney disease, GERD, hypertension, left knee replacement, cholecystectomy, ERCP. CURRENT MEDICATIONS: Hydrocodone for pain, amlodipine, lipase, bisacodyl, Cymbalta, lactulose, Solu-Medrol, Lopressor, morphine, Zofran p.r.n., Protonix p.r.n., Restoril, Carafate, Actigall. PHYSICAL EXAMINATION: VITAL SIGNS: Blood pressure 150/76, pulse is 90, respiratory rate is 20, temperature is 98 degrees. NEUROLOGIC: Higher cortical function: The patient is lethargic, but arousable. She is disoriented to the date. She is oriented to place. Recalls 1 out of 3 objects in 3 minutes. She follows simple commands. There is no aphasia. Cranial nerves are intact. Motor exam: No focal deficits are noted. Reflexes are symmetric. IMAGING STUDIES: MRI of the brain: No acute changes identified. There is evidence of atrophy. LABORATORY DATA: The white count is 24,000, hemoglobin 7.2, hematocrit 23%, platelet count 502,000. Sodium 139, potassium 3.6, chloride 109, CO2 of 14.7, BUN is 81, creatinine 4.53, glucose is 151. GFR is 11. IMPRESSION: Probable metabolic encephalopathy, possibly related to kidney disease. No evidence of stroke on the MRI. RECOMMENDATIONS: We will check additional labs including thyroid panel, B12 level, serum ammonia level. Also obtain an EEG. Omar Kline MD, PhD SONDRA/rm , 05:15 PM , 05:22 PM
[2018-07-02 19:02] LABS: % Iron Saturation 56.5 % (20-50); Folate 4.5 ng/mL (3.1-17.5); Free T4 (Free Thyroxine) 0.81 ng/dL (0.76-1.46); Thyroid Stimulating Hormone 0.161 uIU/mL (0.358-3.740)
[2018-07-03] MEDS: MethylPREDNISolone Sod Succinate Inj 125 MG/2 ML Vial IV.PUSH SCH ×4 (00:48→17:59)
[2018-07-03] MEDS: amLODIPine 5 MG Tablet PO SCH (08:59)
[2018-07-03] MEDS: Simethicone 125 MG Chew Tablet PO SCH ×3 (08:59→18:00)
[2018-07-03] MEDS: Metoprolol Tartrate 25 MG Tablet PO SCH ×2 (08:59→22:46)
[2018-07-03] MEDS: Sodium Bicarbonate 8.4% Inj 75 MEQ in Sodium Chloride 0.45 % Inj 1,000 ML IV.CONT SCH ×3 (08:59→22:58)
[2018-07-03] MEDS: Lipase/Protease/Amylase 12/38/60 DR Capsule PO SCH ×3 (08:59→17:57)
[2018-07-03] MEDS: Sucralfate 1 GM Tablet PO SCH ×3 (08:59→17:57)
[2018-07-03] MEDS: Senna/Docusate Sodium 8.6/50 MG Tablet PO SCH ×2 (09:00→22:46)
--- NOTE | 2018-07-03 11:48 | P.DIET ---
Nutritional Evaluation Type of nutrition evaluation: initial Nutrition consult regarding: Tube Feeding Objective - Diagnosis Abdominal Pain. PMH see H&P - Objective [place] body weight: 59 kg % IBW: 106 Energy Needs - Lower Range (kCal/kg): 25 Energy Needs - Upper Range (kCal/kg): 30 Lower Limit kCal/kg (kCals): 1,575 Upper Limit kCal/kg (kCals): 1,890 Lower Limit Protein Factor (Grams per Kg): 0.6 Upper Limit Protein Factor (Grams per Kg): 1 Lower Protein Needs (Protein): 38 Upper Protein Needs (Protein): 63 Dietitian Reviewed in Medical Record: Current diet, Curent medications, Intake & Output, Labs, Medical history, Tube feeding, Wound/DTI Diet Order: TF w/ Full liquid Objective Comments: Pt. on Creon and lactulose Assessment Assessment: Pt. is at nutritional risk due to dx. and need for TFing. Pt. presented to the emergency department for abdominal pain. The patient is a 3 day history of epigastric abdominal pain that radiates into the chest and his associate with nausea and vomiting. Pt. in a acute on chronic renal failure. noted j-tube to be placed on 07/04. Recommend changing TFing to [place] @ goal rate of 40mls/ hr. Will provide 1728kcals, 43g of protein and 708mls of free water. Monitor TFing tolerance, placement of j-tube, renal labs and skin. Recommendations: 1. Recommend changing TFing to [place] @ goal rate of 40mls/hr. 2. Monitor TFing tolerance, placement of j-tube, renal labs and skin. Dietitian to Monitor: Lab values, Renal labs, Diet tolerance, Tube feeding tolerance, Weight change, Residuals, PO Intake, Wound/skin status, Medical course
[2018-07-03 12:22] LABS: Hematocrit 35.6 % (35.0-46.0); Hemoglobin 11.5 gm/dL (11.6-15.3); Mean Corpuscular HGB Conc 32.3 % (32.0-36.0); Mean Corpuscular Hemoglobin 28.8 pg (27.0-34.0); Mean Corpuscular Volume 89.2 fL (80.0-100.0); Platelet Count 509 th/mm3 (150-450); Red Blood Count 3.99 mil/mm3 (4.00-5.30); Red Cell Distribution Width 16.4 % (11.6-17.2); White Blood Count 22.5 th/mm3 (4.0-11.0)
[2018-07-03 12:38] LABS: Albumin 1.9 g/dL (3.4-5.0); Anion Gap 15 meq/L (5-15); Aspartate Aminotransferase 12 U/L (15-37); Blood Urea Nitrogen 78 mg/dL (7-18); Calcium 8.2 mg/dL (8.5-10.1); Carbon Dioxide 18.3 meq/L (21.0-32.0); Chloride 105 meq/L (98-107); Glomerular Filtration Rate 12 mL/min (>89); Glucose,Random 170 mg/dL (74-106); Magnesium 1.8 mg/dL (1.5-2.5); Potassium 3.2 meq/L (3.5-5.1)
[2018-07-03 12:39] LABS: Alanine Aminotransferase 13 U/L (10-53); Phosphorus 4.3 mg/dL (2.5-4.9)
[2018-07-03 12:42] LABS: Alkaline Phosphatase 98 U/L (45-117); Total Protein 6.1 g/dL (6.4-8.2)
[2018-07-03 12:45] LABS: Sodium 138 meq/L (136-145)
[2018-07-03 13:07] LABS: Lymphocytes 9 % (9-44); Platelet Morphology Normal (Normal)
--- NOTE | 2018-07-03 13:19 | P.PNNP ---
Subjective Interval history: tired, voice no acute complaints. Seen with neurology for AMS, imaging negative Physical Exam Vital signs: Vital Signs 07/02/18 16:00 07/02/18 17:09 07/02/18 20:00 Temperature 98 F 98.1 F Pulse Rate 90 88 Respiratory Rate 20 18 Blood Pressure 151/76 H 151/76 H Pulse Oximetry 98 98 98 07/02/18 22:59 07/02/18 23:16 07/03/18 00:00 Temperature 98.5 F 97.4 F L 98.0 F Pulse Rate 98 H 92 H 88 Respiratory Rate 16 18 18 Blood Pressure 138/70 142/82 H 155/81 H Pulse Oximetry 98 99 100 07/03/18 02:58 07/03/18 03:15 07/03/18 04:00 Temperature 97.3 F L 97.5 F L 97.9 F Pulse Rate 86 91 H 90 Respiratory Rate 18 18 18 Blood Pressure 155/85 H 151/82 H 160/89 H Pulse Oximetry 99 100 100 07/03/18 07:04 07/03/18 08:00 07/03/18 12:00 Temperature 97.8 F 97.8 F Pulse Rate 88 72 Respiratory Rate 12 12 20 Blood Pressure 170/79 H 176/87 H Pulse Oximetry 100 Intake & Output 07/02/18 07/03/18 07/03/18 18:59 06:59 18:59 Intake Total 1000 / 1000 1775 / 1775 Output Total 2 / 2 Balance 998 / 998 1775 / 1775 Weight 67.8 kg Intake: IV 1000 / 1000 1075 / 1075 Sodium Bicarbonate 8.4% Inj 75 1075 / 1075 MEQ In 1/2 Normal Saline Inj 1, 000 ML @ 125 mls/hr IV.CONT . Q8H36M [facility]ITESH Rx#:[id number] 1/2 Normal Saline Inj 1,000 ML 1000 / 1000 @ 125 mls/hr IV.CONT .Q8H HITESH Rx#:[id number] Intake (Blood Product) Amt 700 / 700 Rbc As-3 Leukoreduced Unit 350 / 350 [id number] Rbc As-3 Leukoreduced Unit 350 / 350 [id number] Output: Stool 2 / 2 Other: # Incontinent Voids 1 Date of Last Bowel Movement 08/18/18 08/18/18 - Constitutional no acute distress - Routine HEENT Exam Head: Present: normocephalic Eye: Present: EOMI ENT: Present: mucous membranes moist - Routine Neck Exam Present: supple - Routine Respiratory Exam Present: decreased breath sounds - Routine Cardiovascular Exam Present: RRR - Routine Extremities Exam Comments: no edema - Routine Skin Exam Present: intact - Routine Neurological Exam Present: alert - Detailed Neurological Exam: Coma Scale Eye Opening: Spontaneous - Routine Psychiatric Exam Present: normal affect Assessment and Plan - Assessment (1) Acute UTI Code(s): N39.0 - Urinary tract infection, site not specified Status: Acute (2) Abdominal pain Code(s): R10.9 - Unspecified abdominal pain Status: Acute (3) Acute on chronic kidney failure Code(s): N17.9 - Acute kidney failure, unspecified; N18.9 - Chronic kidney disease, unspecified Status: Acute Qualifiers: Acute renal failure type: unspecified Chronic kidney disease stage: unspecified stage Qualified Code(s): N17.9 - Acute kidney failure, unspecified ; N18.9 - Chronic kidney disease, unspecified (4) Idiopathic pancreatitis Code(s): K85.00 - Idiopathic acute pancreatitis without necrosis or infection Status: Chronic Qualifiers: - Plan Continue with the hydration and IV antibiotics continue monitor BMP Creatinine slowly improvin.7 ->4.5 -> 4.4 On IVFs with 1/2 NS + 75meq NaHCO3. Will decrease rate from 125cc/hour to 100cc/hour. Patient voiding Aortic nephrotoxins Monitor intake and output Follow BMP Being seen with neurology for AMS - imaging negative, continue to monitor. Following with GI for pancreatitis, biliary stent.
[2018-07-03] MEDS ORDERED: Potassium Chloride 25 MEQ Effervescent Tablet PO ONE (13:22)
--- NOTE | 2018-07-03 13:54 | P.PNGI ---
Subjective Interval history: Eyes open awake, stools appears to have some confusion Granddaughter in room who is 1 of her main caretakers, requesting tube feeds be changed back to Jevity 1.5 and states that patient had no abdominal pain or problems when she diluted to Jevity at home. Currently holding tube feeds until INR has a chance to assess feeding tube, plan to recheck on 07/04/2018 No acute abdominal pain today <Jordana Sebastian - Last Filed: 07/03/18 14:00> Interval history: agree with above note, we will follow up with the plan, check mental status in the morning <Patrick Hernandez - Last Filed: 07/03/18 20:37> Physical Exam Vital signs: Vital Signs 07/02/18 16:00 07/02/18 17:09 07/02/18 20:00 Temperature 98 F 98.1 F Pulse Rate 90 88 Respiratory Rate 20 18 Blood Pressure 151/76 H 151/76 H Pulse Oximetry 98 98 98 07/02/18 22:59 07/02/18 23:16 07/03/18 00:00 Temperature 98.5 F 97.4 F L 98.0 F Pulse Rate 98 H 92 H 88 Respiratory Rate 16 18 18 Blood Pressure 138/70 142/82 H 155/81 H Pulse Oximetry 98 99 100 07/03/18 02:58 07/03/18 03:15 07/03/18 04:00 Temperature 97.3 F L 97.5 F L 97.9 F Pulse Rate 86 91 H 90 Respiratory Rate 18 18 18 Blood Pressure 155/85 H 151/82 H 160/89 H Pulse Oximetry 99 100 100 07/03/18 07:04 07/03/18 08:00 07/03/18 12:00 Temperature 97.8 F 97.8 F Pulse Rate 88 72 Respiratory Rate 12 12 20 Blood Pressure 170/79 H 176/87 H Pulse Oximetry 100 Intake & Output 07/02/18 07/03/18 07/03/18 18:59 06:59 18:59 Intake Total 1000 / 1000 1775 / 1775 Output Total 2 / 2 Balance 998 / 998 1775 / 1775 Weight 67.8 kg Intake: IV 1000 / 1000 1075 / 1075 Sodium Bicarbonate 8.4% Inj 75 1075 / 1075 MEQ In 1/2 Normal Saline Inj 1, 000 ML @ 125 mls/hr IV.CONT . [id number] [facility] Rx#:[id number] 1/2 Normal Saline Inj 1,000 ML 1000 / 1000 @ 125 mls/hr IV.CONT .Q8H [facility] Rx#:[id number] Intake (Blood Product) Amt 700 / 700 Rbc As-3 Leukoreduced Unit 350 / 350 [id number] Rbc As-3 Leukoreduced Unit 350 / 350 [id number] Output: Stool 2 / 2 Other: # Incontinent Voids 1 Date of Last Bowel Movement 07/02/18 07/02/18 - Constitutional mild distress - Routine HEENT Exam Head: Present: normocephalic ENT: Present: mucous membranes dry - Routine Respiratory Exam Present: accessory muscle use (No shortness of breath respirations even and unlabored at rest) - Routine Cardiovascular Exam Present: S1, S2 - Routine Abdominal Exam Present: soft (Bowel sounds soft, ), ostomy (Feeding tube) - Routine Skin Exam Present: intact - Routine Neurological Exam Present: altered mental status (With anxiety at times, unable to complete sentence, but appears less anxious with family member present) <Jordana Sebastian - Last Filed: 07/03/18 14:00> Vital signs: Vital Signs 07/02/18 22:59 07/02/18 23:16 07/03/18 00:00 Temperature 98.5 F 97.4 F L 98.0 F Pulse Rate 98 H 92 H 88 Respiratory Rate 16 18 18 Blood Pressure 138/70 142/82 H 155/81 H Pulse Oximetry 98 99 100 07/03/18 02:58 07/03/18 03:15 07/03/18 04:00 Temperature 97.3 F L 97.5 F L 97.9 F Pulse Rate 86 91 H 90 Respiratory Rate 18 18 18 Blood Pressure 155/85 H 151/82 H 160/89 H Pulse Oximetry 99 100 100 07/03/18 07:04 07/03/18 08:00 07/03/18 12:00 Temperature 97.8 F 97.8 F Pulse Rate 88 72 Respiratory Rate 12 12 20 Blood Pressure 170/79 H 176/87 H Pulse Oximetry 100 07/03/18 16:00 07/03/18 17:45 07/03/18 20:00 Temperature 97.5 F L 97.7 F Pulse Rate 90 90 Respiratory Rate 20 12 18 Blood Pressure 159/84 H 164/89 H Pulse Oximetry 100 98 Intake & Output 07/03/18 07/03/18 07/04/18 06:59 18:59 06:59 Intake Total 1775 / 1775 1325 / 1325 Output Total 2 / 2 Balance 1775 / 1775 1323 / 1323 Weight 67.8 kg Intake: IV 1075 / 1075 1325 / 1325 Sodium Bicarbonate 8.4% Inj 75 1075 / 1075 1075 / 1075 MEQ In 1/2 Normal Saline Inj 1, 000 ML @ 100 mls/hr IV.CONT . [id number] [facility] Rx#:[id number] NS Inj 250 ML @ 15 mls/hr IV. 250 / 250 SIG ONCE [facility] Rx#:[id number] Intake (Blood Product) Amt 700 / 700 Rbc As-3 Leukoreduced Unit 350 / 350 [id number] Rbc As-3 Leukoreduced Unit 350 / 350 [id number] Output: Urine 2 / 2 Other: # Incontinent Voids 1 Date of Last Bowel Movement 07/02/18 <Patrick Hernandez - Last Filed: 07/03/18 20:37> Results - Labs CBC & Chem 7: 07/03/18 11:30 07/03/18 11:30 Laboratory Results - last 24 hr 07/02/18 07/02/18 07/02/18 08:30 08:30 15:37 CBC w Diff WBC Corrected WBC RBC Hgb Hct MCV MCH MCHC RDW Plt Count MPV Prelim Diff (Auto) Immature Gran % (Auto) Neut % (Auto) Lymph % (Auto) [place] % (Auto) Eos % (Auto) Baso % (Auto) Immature Gran # (Auto) Neut # (Auto) Lymph # (Auto) [place] # (Auto) Eos # (Auto) Baso # (Auto) WBC Differential Diff Scan Seg Neuts % (Manual) Band Neuts % (Manual) Lymphocytes % (Manual) Atypical Lymphs % (Man) Monocytes % (Manual) Eosinophils % (Manual) Basophils % (Manual) Metamyelocytes % (Man) Myelocytes % (Man) Promyelocytes % (Man) Blast Cells % (Manual) Plasma Cell % (Manual) Other Cells % Abs Neuts (Manual) Nucleated RBCs/100 WBC Differential Comment Hypersegmented Neuts Smudge Cells Toxic Granulation Toxic Vacuolation Dohle Bodies Platelet Estimate Platelet Morphology RBC Morphology Dimorphic RBCs Polychromasia Basophilic Stippling Spherocytes Pappenheimer Bodies Sickle Cells Target Cells Tear Drop Cells Ovalocytes Stomatocytes Helmet Cells [place] Bodies Rex Cells Acanthocytes (Spur) Rouleaux Keratocytes Retic Count 1.2 Absolute Retic 29.1 Hematology Comments Sodium Potassium Chloride Carbon Dioxide Anion Gap BUN Creatinine Estimated GFR POC Glucose 151 H Random Glucose Calcium Phosphorus Magnesium Iron 49 L TIBC 87 L % Saturation 56.5 H Total Bilirubin AST ALT Alkaline Phosphatase Ammonia Lactate Dehydrogenase 278 H Total Protein Albumin Vitamin B12 991 H Folate 4.5 TSH 0.161 L Free T4 0.81 Blood Type Antibody Screen MTS Gel Crossmatch Bld Prod Order Comment 07/02/18 07/02/18 07/02/18 16:05 17:45 17:45 CBC w Diff WBC Corrected WBC RBC Hgb Hct MCV MCH MCHC RDW Plt Count MPV Prelim Diff (Auto) Immature Gran % (Auto) Neut % (Auto) Lymph % (Auto) [place] % (Auto) Eos % (Auto) Baso % (Auto) Immature Gran # (Auto) Neut # (Auto) Lymph # (Auto) [place] # (Auto) Eos # (Auto) Baso # (Auto) WBC Differential Diff Scan Seg Neuts % (Manual) Band Neuts % (Manual) Lymphocytes % (Manual) Atypical Lymphs % (Man) Monocytes % (Manual) Eosinophils % (Manual) Basophils % (Manual) Metamyelocytes % (Man) Myelocytes % (Man) Promyelocytes % (Man) Blast Cells % (Manual) Plasma Cell % (Manual) Other Cells % Abs Neuts (Manual) Nucleated RBCs/100 WBC Differential Comment Hypersegmented Neuts Smudge Cells Toxic Granulation Toxic Vacuolation Dohle Bodies Platelet Estimate Platelet Morphology RBC Morphology Dimorphic RBCs Polychromasia Basophilic Stippling Spherocytes Pappenheimer Bodies Sickle Cells Target Cells Tear Drop Cells Ovalocytes Stomatocytes Helmet Cells [place] Bodies Rex Cells Acanthocytes (Spur) Rouleaux Keratocytes Retic Count Absolute Retic Hematology Comments Sodium Potassium Chloride Carbon Dioxide Anion Gap BUN Creatinine Estimated GFR POC Glucose Random Glucose 142 H Calcium Phosphorus Magnesium Iron TIBC % Saturation Total Bilirubin AST ALT Alkaline Phosphatase Ammonia 12 Lactate Dehydrogenase Total Protein Albumin Vitamin B12 Folate TSH Free T4 Blood Type B Positive Antibody Screen Negative MTS Gel Crossmatch See Detail Bld Prod Order Comment 07/03/18 07/03/18 07/03/18 11:30 11:30 11:30 CBC w Diff Cancelled WBC 22.5 H Cancelled Corrected WBC Cancelled RBC 3.99 L Cancelled Hgb 11.5 L D Cancelled Hct 35.6 Cancelled MCV 89.2 Cancelled MCH 28.8 Cancelled MCHC 32.3 Cancelled RDW 16.4 D Cancelled Plt Count 509 H Cancelled MPV 8.0 Cancelled Prelim Diff (Auto) Manual diff required Cancelled Immature Gran % (Auto) Cancelled Neut % (Auto) Cancelled Lymph % (Auto) Cancelled [place] % (Auto) Cancelled Eos % (Auto) Cancelled Baso % (Auto) Cancelled Immature Gran # (Auto) Cancelled Neut # (Auto) Cancelled Lymph # (Auto) Cancelled [place] # (Auto) Cancelled Eos # (Auto) Cancelled Baso # (Auto) Cancelled WBC Differential Manual diff final Cancelled Diff Scan Cancelled Seg Neuts % (Manual) 87 H Cancelled Band Neuts % (Manual) 4 Cancelled Lymphocytes % (Manual) 9 Cancelled Atypical Lymphs % (Man) Cancelled Monocytes % (Manual) Cancelled Eosinophils % (Manual) Cancelled Basophils % (Manual) Cancelled Metamyelocytes % (Man) Cancelled Myelocytes % (Man) Cancelled Promyelocytes % (Man) Cancelled Blast Cells % (Manual) Cancelled Plasma Cell % (Manual) Cancelled Other Cells % Cancelled Abs Neuts (Manual) 20.5 H Cancelled Nucleated RBCs/100 WBC Cancelled Differential Comment . Cancelled Hypersegmented Neuts Cancelled Smudge Cells Cancelled Toxic Granulation Cancelled Toxic Vacuolation Cancelled Dohle Bodies Cancelled Platelet Estimate High H Cancelled Platelet Morphology Normal Cancelled RBC Morphology Cancelled Dimorphic RBCs Cancelled Polychromasia Cancelled Basophilic Stippling Cancelled Spherocytes Cancelled Pappenheimer Bodies Cancelled Sickle Cells Cancelled Target Cells Cancelled Tear Drop Cells Cancelled Ovalocytes Cancelled Stomatocytes Cancelled Helmet Cells Cancelled [place] Bodies Cancelled Rex Cells Cancelled Acanthocytes (Spur) Cancelled Rouleaux Cancelled Keratocytes Occ H Cancelled Retic Count Absolute Retic Hematology Comments Cancelled Sodium 138 Potassium 3.2 L Chloride 105 Carbon Dioxide 18.3 L Anion Gap 15 BUN 78 H Creatinine 4.44 H Estimated GFR 12 L POC Glucose Random Glucose 170 H Calcium 8.2 L Phosphorus 4.3 Magnesium 1.8 Iron TIBC % Saturation Total Bilirubin 0.2 AST 12 L ALT 13 Alkaline Phosphatase 98 Ammonia Lactate Dehydrogenase Total Protein 6.1 L Albumin 1.9 L Vitamin B12 Folate TSH Free T4 Blood Type Antibody Screen MTS Gel Crossmatch Bld Prod Order Comment Microbiology 07/01/18 13:46 Blood - Peripheral Aerobic Blood Culture - Preliminary No growth in 2 days 07/01/18 13:46 Blood - Peripheral Anaerobic Blood Culture - Preliminary No growth in 2 days 07/01/18 12:18 Blood - Peripheral Aerobic Blood Culture - Preliminary No growth in 2 days 07/01/18 12:18 Blood - Peripheral Anaerobic Blood Culture - Preliminary No growth in 2 days - Imaging Impressions Head MRI 07/02/18 15:30 CONCLUSION: 1. Senescent changes without acute abnormality. 2. Specifically, no evidence for acute infarction, hemorrhage or mass. - Procedures GI Procedure 06/30/18 with IR An ERCP was performed by the ordering physician. The images demonstrate a metallic stent in the mid and distal common bile duct. The stent is traversed with a guidewire which extends into the intrahepatic bile ducts. The final image demonstrates a plastic stent within the metallic stent. The intrahepatic bile ducts do not appear to be significantly dilated <Jordana Sebastian - Last Filed: 07/03/18 14:00> - Labs CBC & Chem 7: 07/03/18 11:30 07/03/18 11:30 Laboratory Results - last 24 hr 07/02/18 07/03/18 07/03/18 17:45 11:30 11:30 CBC w Diff WBC 22.5 H Corrected WBC RBC 3.99 L Hgb 11.5 L D Hct 35.6 MCV 89.2 MCH 28.8 MCHC 32.3 RDW 16.4 D Plt Count 509 H MPV 8.0 Prelim Diff (Auto) Manual diff required Immature Gran % (Auto) Neut % (Auto) Lymph % (Auto) [place] % (Auto) Eos % (Auto) Baso % (Auto) Immature Gran # (Auto) Neut # (Auto) Lymph # (Auto) [place] # (Auto) Eos # (Auto) Baso # (Auto) WBC Differential Manual diff final Diff Scan Seg Neuts % (Manual) 87 H Band Neuts % (Manual) 4 Lymphocytes % (Manual) 9 Atypical Lymphs % (Man) Monocytes % (Manual) Eosinophils % (Manual) Basophils % (Manual) Metamyelocytes % (Man) Myelocytes % (Man) Promyelocytes % (Man) Blast Cells % (Manual) Plasma Cell % (Manual) Other Cells % Abs Neuts (Manual) 20.5 H Nucleated RBCs/100 WBC Differential Comment . Hypersegmented Neuts Smudge Cells Toxic Granulation Toxic Vacuolation Dohle Bodies Platelet Estimate High H Platelet Morphology Normal RBC Morphology Dimorphic RBCs Polychromasia Basophilic Stippling Spherocytes Pappenheimer Bodies Sickle Cells Target Cells Tear Drop Cells Ovalocytes Stomatocytes Helmet Cells [place] Bodies [place] Cells Acanthocytes (Spur) Rouleaux Keratocytes Occ H Hematology Comments Sodium 138 Potassium 3.2 L Chloride 105 Carbon Dioxide 18.3 L Anion Gap 15 BUN 78 H Creatinine 4.44 H Estimated GFR 12 L Random Glucose 170 H Calcium 8.2 L Phosphorus 4.3 Magnesium 1.8 Total Bilirubin 0.2 AST 12 L ALT 13 Alkaline Phosphatase 98 Total Protein 6.1 L Albumin 1.9 L Vitamin B12 Vitamin D 25-Hydroxy Blood Type B Positive Antibody Screen Negative MTS Gel Crossmatch See Detail Bld Prod Order Comment 07/03/18 07/03/18 07/03/18 11:30 17:36 17:36 CBC w Diff Cancelled WBC Cancelled Corrected WBC Cancelled RBC Cancelled Hgb Cancelled Hct Cancelled MCV Cancelled MCH Cancelled MCHC Cancelled RDW Cancelled Plt Count Cancelled MPV Cancelled Prelim Diff (Auto) Cancelled Immature Gran % (Auto) Cancelled Neut % (Auto) Cancelled Lymph % (Auto) Cancelled [place] % (Auto) Cancelled Eos % (Auto) Cancelled Baso % (Auto) Cancelled Immature Gran # (Auto) Cancelled Neut # (Auto) Cancelled Lymph # (Auto) Cancelled [place] # (Auto) Cancelled Eos # (Auto) Cancelled Baso # (Auto) Cancelled WBC Differential Cancelled Diff Scan Cancelled Seg Neuts % (Manual) Cancelled Band Neuts % (Manual) Cancelled Lymphocytes % (Manual) Cancelled Atypical Lymphs % (Man) Cancelled Monocytes % (Manual) Cancelled Eosinophils % (Manual) Cancelled Basophils % (Manual) Cancelled Metamyelocytes % (Man) Cancelled Myelocytes % (Man) Cancelled Promyelocytes % (Man) Cancelled Blast Cells % (Manual) Cancelled Plasma Cell % (Manual) Cancelled Other Cells % Cancelled Abs Neuts (Manual) Cancelled Nucleated RBCs/100 WBC Cancelled Differential Comment Cancelled Hypersegmented Neuts Cancelled Smudge Cells Cancelled Toxic Granulation Cancelled Toxic Vacuolation Cancelled Dohle Bodies Cancelled Platelet Estimate Cancelled Platelet Morphology Cancelled RBC Morphology Cancelled Dimorphic RBCs Cancelled Polychromasia Cancelled Basophilic Stippling Cancelled Spherocytes Cancelled Pappenheimer Bodies Cancelled Sickle Cells Cancelled Target Cells Cancelled Tear Drop Cells Cancelled Ovalocytes Cancelled Stomatocytes Cancelled Helmet Cells Cancelled [place] Bodies Cancelled [place] Cells Cancelled Acanthocytes (Spur) Cancelled Rouleaux Cancelled Keratocytes Cancelled Hematology Comments Cancelled Sodium Potassium Chloride Carbon Dioxide Anion Gap BUN Creatinine Estimated GFR Random Glucose Calcium Phosphorus Magnesium Total Bilirubin AST ALT Alkaline Phosphatase Total Protein Albumin Vitamin B12 1195 H Vitamin D 25-Hydroxy 21.9 L Cancelled Blood Type Antibody Screen MTS Gel Crossmatch Bld Prod Order Comment Microbiology 07/01/18 13:46 Blood - Peripheral Aerobic Blood Culture - Preliminary No growth in 2 days 07/01/18 13:46 Blood - Peripheral Anaerobic Blood Culture - Preliminary No growth in 2 days 07/01/18 12:18 Blood - Peripheral Aerobic Blood Culture - Preliminary No growth in 2 days 07/01/18 12:18 Blood - Peripheral Anaerobic Blood Culture - Preliminary No growth in 2 days <Patrick Hernandez - Last Filed: 07/03/18 20:37> Assessment and Plan - Plan 07/01/2018 patient is resting in the bed mild generalized weakness but no acute distress noted. Initial hemoglobin reviewed at 8.7 but now shows last result as 7.2. GJ tube without any acute erythema at [facility] at 45 cc an hour. Patient also has renal diet and states that she is going to eat this a.m. we will continue to follow the previous tube feed and dietary recommendations .WBC count 30.1 unspecified. Patient states she has the urgency for bowel defecation now. Currently patient denies any nausea or vomiting. Patient is status post stent removal and placement of new stent ERCP. patient will need evaluation postop with GI to follow stent progression and removal in the future. 07/02/2018 according to staff patient had fall approximately over 400 today. Questionable GJ tube displacement. Planning to evaluate an INR today. Current feedings off for now. Patient does appear to have some mild anxiety and increased confusion today during my visit. Calling out wanting to see her family current hemoglobin 7.2. Abdomen is soft without any obvious changes or pain to palpation. Lipase level normalized 42. Patient's pancreatitis is chronic, current need is to evaluate her nutritional needs. 07/03/2018 patient is still showing some mild altered mental status but appears to be better and less anxious with granddaughter in the room. Patient was evaluated , possible metabolic encephalopathy. Currently no feedings over the past 24 hours status post patient's fall. Granddaughter requested Jevity 1.5 to be restarted and states that her grandmother did better with Jevity at home then recent new feedings of plan. Tube feeds are currently on hold until INR has a chance to check tube placement status post patient's fall on 07/02/2018. Plan for recheck with INR on 07/04/2018. Patient has chronic pancreatitis, will check vitamin levels A, D, E, and B12. Plan: Diet regular soft foods, tube feeding on hold until feeding tube is checked per IR, for placement after patient's fall on 07/02 Nutritional consult to speak with granddaughter about plan of care, feedings. Creon, PPI Labs, A, D, E, and B12 vitamins Supportive care Patient was seen per Dr. Hernandez and myself, note was written on his behalf <Jordana Sebastian - Last Filed: 07/03/18 14:00>
--- NOTE | 2018-07-03 17:55 | P.PNIM ---
Subjective Interval history: No new complaints. Physical Exam Vital signs: 07/03/18 12:00 07/03/18 16:00 07/03/18 17:45 Temperature 97.8 F 97.5 F L Pulse Rate 72 90 Respiratory Rate 20 20 12 Blood Pressure 176/87 H 159/84 H Pulse Oximetry 100 Narrative: GENERAL: 82 year old female in no acute distress. CARDIO: Regular RESP: clear x b/l ABD: Abdomen soft, mild tenderness on palpation GJ tube in place, no drainage or erythema EXT: No cyanosis, or edema. Neuro: A&Ox1, CUMMINS Pt is able to follow simple commands. Pt will NOT lift legs off bed, but PT notes indicate that pt stood today. Results - Labs CBC & Chem 7: 07/03/18 11:30 07/03/18 11:30 Microbiology 07/01/18 13:46 Blood - Peripheral Aerobic Blood Culture - Preliminary No growth in 2 days 07/01/18 13:46 Blood - Peripheral Anaerobic Blood Culture - Preliminary No growth in 2 days 07/01/18 12:18 Blood - Peripheral Aerobic Blood Culture - Preliminary No growth in 2 days 07/01/18 12:18 Blood - Peripheral Anaerobic Blood Culture - Preliminary No growth in 2 days - Procedures GI Procedure 06/30/18 with IR An ERCP was performed by the ordering physician. The images demonstrate a metallic stent in the mid and distal common bile duct. The stent is traversed with a guidewire which extends into the intrahepatic bile ducts. The final image demonstrates a plastic stent within the metallic stent. The intrahepatic bile ducts do not appear to be significantly dilated Assessment and Plan - Assessment (1) Idiopathic pancreatitis Code(s): K85.00 - Idiopathic acute pancreatitis without necrosis or infection Status: Chronic Plan: Idiopathic pancreatitis - Ms. Larsen is an 82 y/o AAF with recurrent idiopathic pancreatitis. She has been hospitalized numerous times for issues with pain control related to recurrent pancreatitis. Her last admission was from 03/03/18 to 03/28/18 and she had biliary obstruction at that time. - During that admission she underwent evaluation with ERCP (03/03/18) which noted multiple stones, migrated metal stent up into CBD, could not put plastic stent due to "kink" in current stent according to GI notes. She required PTC placement on 03/04 by IR which noted severe obstruction of the proximal common bile duct stent with very challenging recanalization requiring multiple wires and catheters. biliary stent placement. She had to have a repeat ERCP (03/07/18) and had to have the metal stent cleared of debris and they were able to confirm complete clearance of the stent with good emptying through the stent. She had a percutaneous cholangiogram on 03/09/18 where the external portion of biliary drain was removed and the report showed some small hyperplasia within the distal aspect of the biliary stent but there is a patent channel down to the small bowel. -s/p ercp 05/23 with balloon sweep of stone fragments/debris from metal stent and placement of new stent - GJ tube exchange 710 with IR -mesenteric angio with IR 05/24. patent vessels. - Pt presented back to the ED at [facility] [place] on 06/29/18 with continued abdominal pain that is similar to her previous pancreatitis pain. - Her labs in the ED revealed WBC count 30.1, Cr 5.57 /BUN 73, Lipase 234, TBili 0.3, AST 15, ALT 11, AlkPhos 139. Abdomen/Pelvis CT 06/29/18 reveals: 1. Biliary stent with interval Silastic stent. Air in the left hepatic ducts. 2. I don't see an etiology for the patient's right-sided abdominal pain. Lack of intravenous and oral contrast makes detection of subtle abnormalities difficult 3. Inflammatory processes such as pyonephritis cannot be excluded. GI Procedure 06/30/18 with IR An ERCP was performed by the ordering physician. The images demonstrate a metallic stent in the mid and distal common bile duct. The stent is traversed with a guidewire which extends into the intrahepatic bile ducts. The final image demonstrates a plastic stent within the metallic stent. The intrahepatic bile ducts do not appear to be significantly dilated - Pain control with Morphine and [place] PRN - zofran as need for N/V - J-tube is NOT flushing, nepro is on hold - IR consult to assess J-tube, likely will happen 07/04/18 - Azithromycin and cefepime, stopped. No indication of infection. No fever. No cough, no dysuria - (07/01) WBC increased to 31.4, likely inflammatory - Added IV solumedrol (07/01) - WBC (07/02) 24K, 22.5 (07/03) - blood cultures (07/01) --> NGTD - urine cx (06/29) --> no growth - Supportive care - DVT prophylaxis with SCDs AMS - Pt had overnight fall 07/01 - CT brain (07/02) --> NO acute findings - free T4, folate, ammonia --> WNL\\ - TSH .161. Repeat TSH in a few days and again in 1 month outpt. - MRI brain (07/02) --> no acute findings - Case was d/w Neurology, Dr. Kline (07/02). AMS possibly d/t metabolic encephalopathy - case d/w nursing (07/03). Pt's confusion seems to wax and wane. - EEG pending Acute on chronic kidney failure - Pt with baseline stage 3 CKD, pt follows with Dr. Melara - Her labs at admission noted acute worsening BUN 73 and creatinine 5.57 estimated GFR 9 -> (07/01) BUN 72, creatinine 4.73, GFR 11 - Cr 4.53 (07/02) - continue 1/2 NS at 125ml/H with NAbicarb - Nephrology also following - Avoid nephrotoxic agents UTI - see above HTN (hypertension) - Cont. home meds - Monitor GERD (gastroesophageal reflux disease) - PPI Anemia - Pt with an acute decrease in her chronic anemia - on admission patient's Hgb - obtain iron indices - transfuse 2 units. DVT prophylaxis with SCDs (2) History of biliary stent insertion Code(s): Z98.890 - Other specified postprocedural states Status: Acute Plan: (1) Idiopathic pancreatitis - Ms. Larsen is an 82 y/o AAF with recurrent idiopathic pancreatitis. She has been hospitalized numerous times for issues with pain control related to recurrent pancreatitis. Her last admission was from 03/03/18 to 03/28/18 and she had biliary obstruction at that time. - During that admission she underwent evaluation with ERCP (03/03/18) which noted multiple stones, migrated metal stent up into CBD, could not put plastic stent due to "kink" in current stent according to GI notes. She required PTC placement on 03/04 by IR which noted severe obstruction of the proximal common bile duct stent with very challenging recanalization requiring multiple wires and catheters. biliary stent placement. She had to have a repeat ERCP (03/07/18) and had to have the metal stent cleared of debris and they were able to confirm complete clearance of the stent with good emptying through the stent. She had a percutaneous cholangiogram on 03/09/18 where the external portion of biliary drain was removed and the report showed some small hyperplasia within the distal aspect of the biliary stent but there is a patent channel down to the small bowel. -s/p ercp 05/23 with balloon sweep of stone fragments/debris from metal stent and placement of new stent - GJ tube exchange 710 with IR -mesenteric angio with IR 05/24. patent vessels. - Pt presented back to the ED at [facility] [place] on 06/29/18 with continued abdominal pain that is similar to her previous pancreatitis pain. - Her labs in the ED revealed WBC count , Cr /BUN , Lipase . TBili , AST , ALT , AlkPhos . Abdomen/Pelvis CT 06/29/18 reveals: 1. Biliary stent with interval Silastic stent. Air in the left hepatic ducts. 2. I don't see an etiology for the patient's right-sided abdominal pain. Lack of intravenous and oral contrast makes detection of subtle abnormalities difficult 3. . Inflammatory processes such as pyonephritis cannot be excluded. GI Procedure 06/30/18 with IR An ERCP was performed by the ordering physician. The images demonstrate a metallic stent in the mid and distal common bile duct. The stent is traversed with a guidewire which extends into the intrahepatic bile ducts. The final image demonstrates a plastic stent within the metallic stent. The intrahepatic bile ducts do not appear to be significantly dilated - Pain control PRN with [place] PRN - zofran as need for N/V - obtain repeat CBC, CMP, Mag, lipase in AM - will try to resume Nepro TF at 15ml/hour and slowly titrate back to 45ml/hour - Supportive care - DVT prophylaxis with SCDs - Dr. Eddy will discuss with Pt/daughter, Caitlyn, (by phone) later today (2) Acute on chronic kidney failure - Pt with baseline stage 3 CKD, pt follows with Dr. Melara - Her labs at admission with a noted acute worsening of her baseline CKD. - consultation placed to Nephrology - Avoid nephrotoxic agents (3) HTN (hypertension) - Cont. home meds - Monitor (4) GERD (gastroesophageal reflux disease) - PPI (5) Anemia - Pt with an acute decrease in her chronic anemia - on admission patient's Hgb DVT prophylaxis with SCDs (3) Acute on chronic kidney failure Code(s): N17.9 - Acute kidney failure, unspecified; N18.9 - Chronic kidney disease, unspecified Status: Acute (4) Gastroparesis Code(s): K31.84 - Gastroparesis Status: Acute - Plan Patient examined. Assessment and plan formulated with Olga PETERSON I agree with the above. (1) Idiopathic pancreatitis Qualifiers: (3) Acute on chronic kidney failure Qualifiers: Acute renal failure type: unspecified Chronic kidney disease stage: unspecified stage Qualified Code(s): N17.9 - Acute kidney failure, unspecified ; N18.9 - Chronic kidney disease, unspecified
--- NOTE | 2018-07-03 21:25 | MG ---
cc: Omar Kline MD, PhD TEST NUMBER: [id number] TECHNIQUE: This is a 17-channel EEG. DESCRIPTION: The background rhythm reveals generalized slowing in the theta range at 6 Hz. There is fairly significant muscle artifact. Later in the tracing, the muscle artifact diminishes. There still is baseline slowing. There is some alpha activity. No lateralizing features. No epileptiform discharges. INTERPRETATION: Mildly abnormal study consistent with mild encephalopathy. Omar Kline MD, PhD SONDRA/teofilo , 09:03 PM , 09:07 PM
[2018-07-04] MEDS: MethylPREDNISolone Sod Succinate Inj 125 MG/2 ML Vial IV.PUSH SCH ×5 (00:14→23:28)
[2018-07-04] MEDS: Sodium Bicarbonate 8.4% Inj 75 MEQ in Sodium Chloride 0.45 % Inj 1,000 ML IV.CONT SCH ×4 (05:18→21:43)
[2018-07-04 06:46] LABS: Baso % (Auto) 0.1 % (0.0-2.0); Hematocrit 32.1 % (35.0-46.0); Hemoglobin 10.6 gm/dL (11.6-15.3); Lymph # (Auto) 1.2 th/mm3 (1.0-4.8); Lymph % (Auto) 5.6 % (9.0-44.0); Mean Corpuscular HGB Conc 33.2 % (32.0-36.0); Mean Corpuscular Hemoglobin 28.9 pg (27.0-34.0); Mean Platelet Volume 7.5 fL (7.0-11.0); Mono # (Auto) 0.2 th/mm3 (0.0-0.9); Mono % (Auto) 0.9 % (0.0-8.0); Neut # (Auto) 20.1 th/mm3 (1.8-7.7); Neut % (Auto) 93.4 % (16.0-70.0); Platelet Count 458 th/mm3 (150-450); Red Blood Count 3.69 mil/mm3 (4.00-5.30); Red Cell Distribution Width 16.7 % (11.6-17.2); White Blood Count 21.5 th/mm3 (4.0-11.0)
[2018-07-04 07:09] LABS: Alanine Aminotransferase 13 U/L (10-53); Albumin 1.8 g/dL (3.4-5.0); Anion Gap 11 meq/L (5-15); Aspartate Aminotransferase 10 U/L (15-37); Blood Urea Nitrogen 77 mg/dL (7-18); Calcium 7.6 mg/dL (8.5-10.1); Carbon Dioxide 23.6 meq/L (21.0-32.0); Chloride 105 meq/L (98-107); Glomerular Filtration Rate 13 mL/min (>89); Glucose,Random 135 mg/dL (74-106); Magnesium 1.8 mg/dL (1.5-2.5); Phosphorus 4.1 mg/dL (2.5-4.9); Potassium 3.3 meq/L (3.5-5.1); Sodium 140 meq/L (136-145)
[2018-07-04 07:14] LABS: Alkaline Phosphatase 82 U/L (45-117); Total Protein 5.5 g/dL (6.4-8.2)
[2018-07-04 07:32] LABS: Lymphocytes 3 % (9-44); Metamyelocytes 4 % (0-1); Monocytes 1 % (0-8); Myelocytes 4 % (0-0); Platelet Morphology Normal (Normal)
--- NOTE | 2018-07-04 09:06 | P.PNIM ---
Subjective Interval history: Patient c/o abd pain asking for pain medication patient A&O with no focal deficits, per RN yesterday patient's mentation wax and waned Physical Exam Vital signs: Vital Signs 07/03/18 12:00 07/03/18 16:00 07/03/18 17:45 Temperature 97.8 F 97.5 F L Pulse Rate 72 90 Respiratory Rate 20 20 12 Blood Pressure 176/87 H 159/84 H Pulse Oximetry 100 07/03/18 20:00 07/04/18 00:00 07/04/18 01:27 Temperature 97.7 F 98.9 F Pulse Rate 90 83 Respiratory Rate 18 18 16 Blood Pressure 164/89 H 152/82 H Pulse Oximetry 98 95 07/04/18 04:00 Temperature 98.5 F Pulse Rate 89 Respiratory Rate 18 Blood Pressure 152/89 H Pulse Oximetry 99 Intake & Output 07/03/18 07/04/18 07/04/18 18:59 06:59 18:59 Intake Total 1325 / 1325 1075 / 1075 Output Total 2 / 2 Balance 1323 / 1323 1075 / 1075 Intake: IV 1325 / 1325 1075 / 1075 Sodium Bicarbonate 8.4% Inj 75 1075 / 1075 1075 / 1075 MEQ In 1/2 Normal Saline Inj 1, 000 ML @ 100 mls/hr IV.CONT . [id number] HITESH Rx#:[id number] NS Inj 250 ML @ 15 mls/hr IV. 250 / 250 SIG ONCE HITESH Rx#:[id number] Output: Urine 2 / 2 Other: # Incontinent Voids 2 Date of Last Bowel Movement 07/02/18 # Bowel Movements 1 Narrative: GENERAL: 82 year old female in no acute distress. CARDIO: Regular RESP: clear x b/l ABD: Abdomen soft, mild tenderness on palpation GJ tube in place, no drainage or erythema EXT: No cyanosis, or edema. NEURO: A&Ox3, no focal deficits Results - Labs CBC & Chem 7: 07/04/18 06:18 07/04/18 06:18 Laboratory Results - last 24 hr 07/03/18 07/03/18 07/03/18 11:30 11:30 11:30 CBC w Diff Cancelled WBC 22.5 H Cancelled Corrected WBC Cancelled RBC 3.99 L Cancelled Hgb 11.5 L D Cancelled Hct 35.6 Cancelled MCV 89.2 Cancelled MCH 28.8 Cancelled MCHC 32.3 Cancelled RDW 16.4 D Cancelled Plt Count 509 H Cancelled MPV 8.0 Cancelled Prelim Diff (Auto) Manual diff required Cancelled Immature Gran % (Auto) Cancelled Neut % (Auto) Cancelled Lymph % (Auto) Cancelled [place] % (Auto) Cancelled Eos % (Auto) Cancelled Baso % (Auto) Cancelled Immature Gran # (Auto) Cancelled Neut # (Auto) Cancelled Lymph # (Auto) Cancelled [place] # (Auto) Cancelled Eos # (Auto) Cancelled Baso # (Auto) Cancelled WBC Differential Manual diff final Cancelled Diff Scan Cancelled Seg Neuts % (Manual) 87 H Cancelled Band Neuts % (Manual) 4 Cancelled Lymphocytes % (Manual) 9 Cancelled Atypical Lymphs % (Man) Cancelled Monocytes % (Manual) Cancelled Eosinophils % (Manual) Cancelled Basophils % (Manual) Cancelled Metamyelocytes % (Man) Cancelled Myelocytes % (Man) Cancelled Promyelocytes % (Man) Cancelled Blast Cells % (Manual) Cancelled Plasma Cell % (Manual) Cancelled Other Cells % Cancelled Abs Neuts (Manual) 20.5 H Cancelled Nucleated RBCs/100 WBC Cancelled Differential Comment . Cancelled Hypersegmented Neuts Cancelled Smudge Cells Cancelled Toxic Granulation Cancelled Toxic Vacuolation Cancelled Dohle Bodies Cancelled Platelet Estimate High H Cancelled Platelet Morphology Normal Cancelled RBC Morphology Cancelled Dimorphic RBCs Cancelled Polychromasia Cancelled Basophilic Stippling Cancelled Spherocytes Cancelled Pappenheimer Bodies Cancelled Sickle Cells Cancelled Target Cells Cancelled Tear Drop Cells Cancelled Ovalocytes Cancelled Stomatocytes Cancelled Helmet Cells Cancelled [place] Bodies Cancelled [place] Cells Cancelled Acanthocytes (Spur) Cancelled Rouleaux Cancelled Keratocytes Occ H Cancelled Hematology Comments Cancelled Sodium 138 Potassium 3.2 L Chloride 105 Carbon Dioxide 18.3 L Anion Gap 15 BUN 78 H Creatinine 4.44 H Estimated GFR 12 L Random Glucose 170 H Calcium 8.2 L Phosphorus 4.3 Magnesium 1.8 Total Bilirubin 0.2 AST 12 L ALT 13 Alkaline Phosphatase 98 Total Protein 6.1 L Albumin 1.9 L Vitamin B12 Vitamin D 25-Hydroxy 07/03/18 07/03/18 07/04/18 17:36 17:36 06:18 CBC w Diff WBC 21.5 H Corrected WBC RBC 3.69 L Hgb 10.6 L Hct 32.1 L MCV 87.0 MCH 28.9 MCHC 33.2 RDW 16.7 Plt Count 458 H MPV 7.5 Prelim Diff (Auto) Slide review pending Immature Gran % (Auto) Neut % (Auto) 93.4 H Lymph % (Auto) 5.6 L [place] % (Auto) 0.9 Eos % (Auto) 0.0 Baso % (Auto) 0.1 Immature Gran # (Auto) Neut # (Auto) 20.1 H Lymph # (Auto) 1.2 [place] # (Auto) 0.2 Eos # (Auto) 0.0 Baso # (Auto) 0.0 WBC Differential Manual diff final Diff Scan Seg Neuts % (Manual) 84 H Band Neuts % (Manual) 4 Lymphocytes % (Manual) 3 L Atypical Lymphs % (Man) Monocytes % (Manual) 1 Eosinophils % (Manual) Basophils % (Manual) Metamyelocytes % (Man) 4 H Myelocytes % (Man) 4 H Promyelocytes % (Man) Blast Cells % (Manual) Plasma Cell % (Manual) Other Cells % Abs Neuts (Manual) 20.6 H Nucleated RBCs/100 WBC Differential Comment . Hypersegmented Neuts Smudge Cells Toxic Granulation Toxic Vacuolation Dohle Bodies Platelet Estimate High H Platelet Morphology Normal RBC Morphology Dimorphic RBCs Polychromasia Basophilic Stippling Spherocytes Pappenheimer Bodies Sickle Cells Target Cells Tear Drop Cells Ovalocytes Stomatocytes Helmet Cells [place] Bodies [place] Cells Acanthocytes (Spur) Rouleaux Keratocytes Hematology Comments Sodium Potassium Chloride Carbon Dioxide Anion Gap BUN Creatinine Estimated GFR Random Glucose Calcium Phosphorus Magnesium Total Bilirubin AST ALT Alkaline Phosphatase Total Protein Albumin Vitamin B12 1195 H Vitamin D 25-Hydroxy 21.9 L Cancelled 07/04/18 06:18 CBC w Diff WBC Corrected WBC RBC Hgb Hct MCV MCH MCHC RDW Plt Count MPV Prelim Diff (Auto) Immature Gran % (Auto) Neut % (Auto) Lymph % (Auto) [place] % (Auto) Eos % (Auto) Baso % (Auto) Immature Gran # (Auto) Neut # (Auto) Lymph # (Auto) [place] # (Auto) Eos # (Auto) Baso # (Auto) WBC Differential Diff Scan Seg Neuts % (Manual) Band Neuts % (Manual) Lymphocytes % (Manual) Atypical Lymphs % (Man) Monocytes % (Manual) Eosinophils % (Manual) Basophils % (Manual) Metamyelocytes % (Man) Myelocytes % (Man) Promyelocytes % (Man) Blast Cells % (Manual) Plasma Cell % (Manual) Other Cells % Abs Neuts (Manual) Nucleated RBCs/100 WBC Differential Comment Hypersegmented Neuts Smudge Cells Toxic Granulation Toxic Vacuolation Dohle Bodies Platelet Estimate Platelet Morphology RBC Morphology Dimorphic RBCs Polychromasia Basophilic Stippling Spherocytes Pappenheimer Bodies Sickle Cells Target Cells Tear Drop Cells Ovalocytes Stomatocytes Helmet Cells [place] Bodies [place] Cells Acanthocytes (Spur) Rouleaux Keratocytes Hematology Comments Sodium 140 Potassium 3.3 L Chloride 105 Carbon Dioxide 23.6 Anion Gap 11 BUN 77 H Creatinine 3.99 H Estimated GFR 13 L Random Glucose 135 H Calcium 7.6 L Phosphorus 4.1 Magnesium 1.8 Total Bilirubin 0.2 AST 10 L ALT 13 Alkaline Phosphatase 82 Total Protein 5.5 L D Albumin 1.8 L Vitamin B12 Vitamin D 25-Hydroxy Microbiology 07/01/18 13:46 Blood - Peripheral Aerobic Blood Culture - Preliminary No growth in 2 days 07/01/18 13:46 Blood - Peripheral Anaerobic Blood Culture - Preliminary No growth in 2 days 07/01/18 12:18 Blood - Peripheral Aerobic Blood Culture - Preliminary No growth in 2 days 07/01/18 12:18 Blood - Peripheral Anaerobic Blood Culture - Preliminary No growth in 2 days - Procedures GI Procedure 06/30/18 with IR An ERCP was performed by the ordering physician. The images demonstrate a metallic stent in the mid and distal common bile duct. The stent is traversed with a guidewire which extends into the intrahepatic bile ducts. The final image demonstrates a plastic stent within the metallic stent. The intrahepatic bile ducts do not appear to be significantly dilated Assessment and Plan - Assessment (1) Idiopathic pancreatitis Code(s): K85.00 - Idiopathic acute pancreatitis without necrosis or infection Status: Chronic Plan: Idiopathic pancreatitis - Ms. Larsen is an 82 y/o AAF with recurrent idiopathic pancreatitis. She has been hospitalized numerous times for issues with pain control related to recurrent pancreatitis. Her last admission was from 03/03/18 to 03/28/18 and she had biliary obstruction at that time. - During that admission she underwent evaluation with ERCP (03/03/18) which noted multiple stones, migrated metal stent up into CBD, could not put plastic stent due to "kink" in current stent according to GI notes. She required PTC placement on 03/04 by IR which noted severe obstruction of the proximal common bile duct stent with very challenging recanalization requiring multiple wires and catheters. biliary stent placement. She had to have a repeat ERCP (03/07/18) and had to have the metal stent cleared of debris and they were able to confirm complete clearance of the stent with good emptying through the stent. She had a percutaneous cholangiogram on 03/09/18 where the external portion of biliary drain was removed and the report showed some small hyperplasia within the distal aspect of the biliary stent but there is a patent channel down to the small bowel. -s/p ercp 05/23 with balloon sweep of stone fragments/debris from metal stent and placement of new stent - GJ tube exchange 710 with IR -mesenteric angio with IR 05/24. patent vessels. - Pt presented back to the ED at [facility] [place] on 06/29/18 with continued abdominal pain that is similar to her previous pancreatitis pain. - Her labs in the ED revealed WBC count 30.1, Cr 5.57 /BUN 73, Lipase 234, TBili 0.3, AST 15, ALT 11, AlkPhos 139. Abdomen/Pelvis CT 06/29/18 reveals: 1. Biliary stent with interval Silastic stent. Air in the left hepatic ducts. 2. I don't see an etiology for the patient's right-sided abdominal pain. Lack of intravenous and oral contrast makes detection of subtle abnormalities difficult 3. Inflammatory processes such as pyonephritis cannot be excluded. GI Procedure 06/30/18 with IR An ERCP was performed by the ordering physician. The images demonstrate a metallic stent in the mid and distal common bile duct. The stent is traversed with a guidewire which extends into the intrahepatic bile ducts. The final image demonstrates a plastic stent within the metallic stent. The intrahepatic bile ducts do not appear to be significantly dilated - Pain control with Morphine and [place] PRN - zofran as need for N/V - J-tube is NOT flushing, nepro is on hold - IR consult to assess J-tube, likely will happen 07/04/18 - Azithromycin and cefepime, stopped. No indication of infection. No fever. No cough, no dysuria - (07/01) WBC increased to 31.4, likely inflammatory - Added IV solumedrol (07/01) - WBC (07/02) 24K, 22.5 (07/03), 21.5 (07/04) - blood cultures (07/01) --> NGTD - urine cx (06/29) --> no growth - Supportive care - DVT prophylaxis with SCDs - (07/04) patient C/P abd pain, lipase ordered CMP reviewed - Morphine available as needed for pain AMS- appears to have resolved (07/04) - Pt had overnight fall 07/01 - CT brain (07/02) --> NO acute findings - free T4, folate, ammonia --> WNL - TSH .161. Repeat TSH in a few days and again in 1 month outpt. - MRI brain (07/02) --> no acute findings - Case was d/w Neurology, Dr. Kline (07/02). AMS possibly d/t metabolic encephalopathy - case d/w nursing (07/03). Pt's confusion seems to wax and wane. - EEG reviewed reveals: Mildly abnormal study consistent with mild encephalopathy Acute on chronic kidney failure - Pt with baseline stage 3 CKD, pt follows with Dr. Melara - Her labs at admission noted acute worsening BUN 73 and creatinine 5.57 estimated GFR 9 -> (07/01) BUN 72, creatinine 4.73, GFR 11 - Cr 4.53 (07/02), Cr 4.44 (07/03), Cr 3.99 (07/04) - continue 1/2 NS at 125ml/H with NAbicarb - Nephrology also following - Avoid nephrotoxic agents UTI - Urine culture reveals: No growth in 48 hours HTN (hypertension) - Cont. home meds - Monitor GERD (gastroesophageal reflux disease) - PPI Anemia - Pt with an acute decrease in her chronic anemia - on admission patient's Hgb - obtain iron indices - transfuse 2 units. DVT prophylaxis with SCDs (2) History of biliary stent insertion Code(s): Z98.890 - Other specified postprocedural states Status: Acute (3) Acute on chronic kidney failure Code(s): N17.9 - Acute kidney failure, unspecified; N18.9 - Chronic kidney disease, unspecified Status: Acute (4) Gastroparesis Code(s): K31.84 - Gastroparesis Status: Acute (1) Idiopathic pancreatitis Qualifiers: (3) Acute on chronic kidney failure Qualifiers: Acute renal failure type: unspecified Chronic kidney disease stage: unspecified stage Qualified Code(s): N17.9 - Acute kidney failure, unspecified ; N18.9 - Chronic kidney disease, unspecified
[2018-07-04] MEDS: Simethicone 125 MG Chew Tablet PO SCH ×3 (10:16→17:21)
[2018-07-04] MEDS: Sucralfate 1 GM Tablet PO SCH ×3 (10:17→17:21)
[2018-07-04] MEDS: Lipase/Protease/Amylase 12/38/60 DR Capsule PO SCH ×3 (10:17→17:22)
[2018-07-04] MEDS: Senna/Docusate Sodium 8.6/50 MG Tablet PO SCH ×2 (10:17→20:34)
[2018-07-04] MEDS: Metoprolol Tartrate 25 MG Tablet PO SCH ×2 (10:17→20:33)
[2018-07-04] MEDS: amLODIPine 5 MG Tablet PO SCH (10:18)
[2018-07-04] MEDS: Morphine Inj 4 MG/ML Vial IV.PUSH PRN (10:32)
--- NOTE | 2018-07-04 14:00 | XR ---
EXAM DATE: 07/04/2018 1:53 PM EDT AGE/SEX: 82 years / Female INDICATIONS: GJ tube placement. CLINICAL DATA: This is the patient's subsequent encounter. Patient reports that signs and symptoms h ave been present for 4 - 6 days and indicates a pain score of 7/10. MEDICAL/SURGICAL HISTORY: Hypertension. Gastroesophageal reflux disease. Cholecystectomy. GJ t ube placement. COMPARISON: [facility] [place], CT ABDOMEN & PELVIS W/O CONTRAST, 06/29/2018. . FINDINGS: Single portable supine view of the abdomen demonstrates oral contrast material within the jejunum. N o abnormal extravasation of contrast is seen. There is a metallic and plastic stent in the common ad t. Cholecystectomy clips are present. There are multiple clips overlying the left mid abdomen. No acu te osseous abnormality is seen. CONCLUSION: The presumed injected oral contrast material in the GJ tube fills the jejunum indicating normal posit ion of the GJ tube. Electronically signed by: Luis E Pickett MD 07/04/2018 1:59 PM EDT
--- NOTE | 2018-07-04 14:10 | P.CONPSY ---
Provisional Diagnosis Admission Date: June 29, 2018 22:12 [place] I.: Delirium due to underlying medical condition History of Present Illness Service: Katherine Primary Care Provider: Hong Peterson MD Family Provider: Hong Peterson MD Chief Complaint: Recurrent abdominal pain History of Present Illness: The patient is an 82 y/o AAF, domiciled in [facility] with granddaughter, unemployed, retired, without no previous psychiatric history, no prepsychotic hospitalizations, no suicide attempts, she denies the use of illegal drugs or alcohol, with recurrent idiopathic pancreatitis. She has been hospitalized numerous times for issues with pain control related to recurrent pancreatitis. Her last admission was from 03/03/18 to 03/28/18 and she had biliary obstruction at that time. -s/p ercp 05/23 with balloon sweep of stone fragments/debris from metal stent and placement of new stent thromycin and cefepime, stopped. No indication of infection. No fever. No cough , no dysuria - (07/01) WBC increased to 31.4, likely inflammatory - Added IV solumedrol (07/01) - WBC (07/02) 24K, 22.5 (07/03), 21.5 (07/04) - blood cultures (07/01) --> NGTD - urine cx (06/29) --> no growth - Supportive care - DVT prophylaxis with SCDs - (07/04) patient C/P abd pain, lipase ordered CMP reviewed - Morphine available as needed for pain AMS- appears to have resolved (07/04) - Pt had overnight fall 07/01 - CT brain (07/02) --> NO acute findings - free T4, folate, ammonia --> WNL - TSH .161. Repeat TSH in a few days and again in 1 month outpt. - MRI brain (07/02) --> no acute findings - Case was d/w Neurology, Dr. Kline (07/02). AMS possibly d/t metabolic encephalopathy - case d/w nursing (07/03). Pt's confusion seems to wax and wane. - EEG reviewed reveals: Mildly abnormal study consistent with mild encephalopathy Acute on chronic kidney failure - Pt with baseline stage 3 CKD, pt follows with Dr. Melara - Her labs at admission noted acute worsening BUN 73 and creatinine 5.57 estimated GFR 9 -> (07/01) BUN 72, creatinine 4.73, GFR 11 - Cr 4.53 (07/02), Cr 4.44 (07/03), Cr 3.99 (07/04) - continue 1/2 NS at 125ml/H with NAbicarb - Nephrology also following - Avoid nephrotoxic agent On psychiatric evaluation today the patient is calm, superficially cooperative, she seems quite distant. The patient reports that she feels okay, her only complaint is is a continues stomach pain. The patient reports having a good mood, she actually described her mood as very good, 06/24. The patient has a marked flat affect, she seems to be quite restricted, but she answer my questions appropriately. He denies suicidal enemas ideation, she denies visual and auditory hallucinations. The patient is logical, coherent and relevant. However the patient has a marked fragmented thought and delay speech, she is a little bit confused, but oriented in place, partially oriented in time. [facility] - History History Provided By: Patient, Family Member - Medical History Medical History: Medical History (Last Reviewed 07/03/18 @ 06:43 by Fer Pereyra) Anxiety CKD (chronic kidney disease) stage 3, GFR 30-59 ml/min Encounter for gastrojejunal (GJ) tube placement GERD (gastroesophageal reflux disease) Hypertension Idiopathic pancreatitis Pancreatitis - Surgical History Surgical History: Surgical History (Last Reviewed 07/03/18 @ 06:43 by Fer Pereyra) History of total left knee replacement (TKR) Hx of cholecystectomy S/P ERCP - Family History Family History: Family History (Last Updated 05/16/18 @ 15:17 by SUSHIL Obregon) Other Family history non-contributory - Tobacco History Second Hand Smoke Exposure: No Smoking Status: Never smoker - Alcohol History How Often Do You Have a Drink Containing Alcohol: Never - Substance Use History Substance History: No History of Abuse - Travel History Recent Travel in the [place] Within the Last 8 Weeks: No Recent Travel Out of the Country Within the Last 8 Weeks: No - Immunization History Tetanus Immunization: Unsure Hx Influenza Vaccine This Season: No Medications and Allergies Active Medications: Active Medications Hydrocodone Bitart/Acetaminophen (Letona 5/325) 1 tab PO Q4H PRN PRN Reason: pain 1-10 Last Admin: 07/04/18 13:14 Dose: 1 tab Al Hydroxide/Mg Hydroxide (Milk Of Magnesia Liq) 30 ml PO QID PRN PRN Reason: Constipation Amlodipine Besylate (Norvasc) 5 mg PO DAILY [facility] Last Admin: 07/04/18 10:18 Dose: 5 mg Lipase/Protease/Amylase (Mando Kapoor ) 1 cap PO TIDPC [facility] Last Admin: 07/04/18 13:15 Dose: 1 cap Bisacodyl (Dulcolax Supp) 10 mg RECTAL DAILY PRN PRN Reason: SEVERE CONSITIPATION Duloxetine HCl (Cymbalta) 20 mg PO DAILY [facility] Last Admin: 07/04/18 10:17 Dose: 20 mg Sodium Bicarbonate 75 meq/ (Sodium Chloride) 1,075 mls @ 100 mls/hr IV.CONT .[id number] [facility] Last Admin: 07/04/18 07:06 Dose: 125 mls/hr Lactulose (Lactulose Liq) 30 ml PO DAILY PRN PRN Reason: SEVERE CONSITIPATION Methylprednisolone Sodium Succinate (Solumedrol Inj) 60 mg IV.PUSH Q6HR [facility] Last Admin: 07/04/18 13:15 Dose: 60 mg Metoprolol Tartrate (Lopressor) 25 mg PO BID [facility] Last Admin: 07/04/18 10:17 Dose: 25 mg Morphine Sulfate (Morphine Inj) 4 mg IV.PUSH Q4H PRN PRN Reason: BREAKTHROUGH PAIN Last Admin: 07/04/18 10:32 Dose: 4 mg Ondansetron HCl (Zofran Inj) 4 mg IV.PUSH Q6H PRN PRN Reason: NAUSEA OR VOMITING Last Admin: 07/04/18 10:31 Dose: 4 mg Pantoprazole Sodium (Protonix) 40 mg PO BID [facility] Last Admin: 07/04/18 10:17 Dose: 40 mg Senna/Docusate Sodium (Mattie-Colace) 1 tab PO BID [facility] Last Admin: 07/04/18 10:17 Dose: 1 tab Simethicone (Phazyme Chew) 125 mg PO TIDAC [facility] Last Admin: 07/04/18 13:16 Dose: Not Given Sodium Chloride (Ns Flush) 2 ml IV.FLUSH PRN PRN PRN Reason: FLUSH AFTER USING IV ACCESS Sterile Water (Free Water) 200 ml G-TUBE Q6HR [facility] Last Admin: 07/04/18 13:15 Dose: Not Given Sucralfate (Carafate) 1 gm PO TID [facility] Last Admin: 07/04/18 13:15 Dose: 1 gm Temazepam (Restoril) 15 mg PO HS PRN PRN Reason: INSOMNIA Ursodiol (Actigall) 300 mg PO BID [facility] Last Admin: 07/04/18 10:17 Dose: 300 mg Allergies Allergy/AdvReac Type Severity Reaction Status Date / Time No Known Allergies Allergy Unverified 05/16/18 07:25 Home Medications Medication Instructions Recorded Confirmed Type hydrocodone-acetaminophen [Letona] 1 tab PO Q4H PRN 05/16/18 06/29/18 History [id number] [Creon] 1 tab PO TIDPC 05/16/18 06/29/18 History magnesium hydroxide [Presley Milk 311 mg PO QID PRN 05/16/18 06/29/18 History of Magnesia] meclizine 25 mg PO DAILY PRN 05/16/18 06/29/18 History metoprolol tartrate 25 mg PO BID 05/16/18 06/29/18 History pantoprazole 40 mg PO BID 05/16/18 06/29/18 History sucralfate 1 g PO TID 05/16/18 06/29/18 History Exam Vital signs: Vital Signs 07/03/18 16:00 07/03/18 17:45 07/03/18 20:00 Temperature 97.5 F L 97.7 F Pulse Rate 90 90 Respiratory Rate 20 12 18 Blood Pressure 159/84 H 164/89 H Pulse Oximetry 100 98 07/04/18 00:00 07/04/18 01:27 07/04/18 04:00 Temperature 98.9 F 98.5 F Pulse Rate 83 89 Respiratory Rate 18 16 18 Blood Pressure 152/82 H 152/89 H Pulse Oximetry 95 99 07/04/18 08:00 07/04/18 10:35 07/04/18 10:39 Temperature 97.8 F Pulse Rate 89 Respiratory Rate 16 16 16 Blood Pressure 151/85 H Pulse Oximetry 95 Intake & Output 07/03/18 07/04/18 07/04/18 18:59 06:59 18:59 Intake Total 1325 / 1325 1075 / 1075 Output Total 2 / 2 Balance 1323 / 1323 1075 / 1075 Intake: IV 1325 / 1325 1075 / 1075 Sodium Bicarbonate 8.4% Inj 75 1075 / 1075 1075 / 1075 MEQ In 1/2 Normal Saline Inj 1, 000 ML @ 100 mls/hr IV.CONT . [id number] [facility] Rx#:[id number] NS Inj 250 ML @ 15 mls/hr IV. 250 / 250 SIG ONCE [facility] Rx#:[id number] Output: Urine 2 / 2 Other: # Incontinent Voids 2 Date of Last Bowel Movement 07/02/18 # Bowel Movements 1 Mental Status Examination Appearance: Appropriate Consciousness: Alert Orientation: Person, Place Motor Activity: Normal gait Speech: Unremarkable Language: Adequate Fund of Knowledge: Adequate Attention and Concentration: Adequate Memory: Impaired Mood: Good Affect: Blunt Thought Process & Associations: Intact Thought Content: Appropriate Hallucination Type: None Delusion Type: None Suicidal Ideation: No Suicidal Plan: No Suicidal Intention: No Homicidal Ideation: No Homicidal Plan: No Homicidal Intention: No Insight: Fair Judgment: Impulsive Assessment and Plan - Assessment (1) Delirium Code(s): R41.0 - Disorientation, unspecified Status: Acute - Plan Plan: Estimated LOS: [] days Justification for Continued Inpatient Stay: On psychiatric evaluation today the patient presents calm, superficially cooperative, oriented in person, oriented in place, partially oriented in time. The patient has a prominent restricted affect, speech delay and thought blocking, which is mostly logical, coherent and relevant. She reports good mood , she says that her mood is 8/10, she denies suicidal and homicidal ideation, she denies visual and auditory hallucinations. The patient has been described disorganized and agitated recently, which putting together with current presentation seems to be part of hypoactive/hypoalert delirium most probably related with multiple medical conditions, polypharmacy. Patient might benefit of a low dose of antipsychotics, Seroquel 25 mg twice daily, for example. She does not meet criteria for involuntary psychiatric admission at the moment. I will follow-up
--- NOTE | 2018-07-04 14:55 | P.PNNEU ---
Subjective Subjective Comments: no new c/o Active Medications: Active Medications Hydrocodone Bitart/Acetaminophen ([place] 5/325) 1 tab PO Q4H PRN PRN Reason: pain 1-10 Last Admin: 07/04/18 13:14 Dose: 1 tab Al Hydroxide/Mg Hydroxide (Milk Of Magnesia Liq) 30 ml PO QID PRN PRN Reason: Constipation Amlodipine Besylate (Norvasc) 5 mg PO DAILY [facility] Last Admin: 07/04/18 10:18 Dose: 5 mg Lipase/Protease/Amylase (Mando Kapoor ) 1 cap PO TIDPC [facility] Last Admin: 07/04/18 13:15 Dose: 1 cap Bisacodyl (Dulcolax Supp) 10 mg RECTAL DAILY PRN PRN Reason: SEVERE CONSITIPATION Duloxetine HCl (Cymbalta) 20 mg PO DAILY [facility] Last Admin: 07/04/18 10:17 Dose: 20 mg Sodium Bicarbonate 75 meq/ (Sodium Chloride) 1,075 mls @ 100 mls/hr IV.CONT .[id number] [facility] Last Admin: 07/04/18 07:06 Dose: 125 mls/hr Lactulose (Lactulose Liq) 30 ml PO DAILY PRN PRN Reason: SEVERE CONSITIPATION Methylprednisolone Sodium Succinate (Solumedrol Inj) 60 mg IV.PUSH Q6HR [facility] Last Admin: 07/04/18 13:15 Dose: 60 mg Metoprolol Tartrate (Lopressor) 25 mg PO BID [facility] Last Admin: 07/04/18 10:17 Dose: 25 mg Morphine Sulfate (Morphine Inj) 4 mg IV.PUSH Q4H PRN PRN Reason: BREAKTHROUGH PAIN Last Admin: 07/04/18 10:32 Dose: 4 mg Ondansetron HCl (Zofran Inj) 4 mg IV.PUSH Q6H PRN PRN Reason: NAUSEA OR VOMITING Last Admin: 07/04/18 10:31 Dose: 4 mg Pantoprazole Sodium (Protonix) 40 mg PO BID [facility] Last Admin: 07/04/18 10:17 Dose: 40 mg Senna/Docusate Sodium (Mattie-Colace) 1 tab PO BID [facility] Last Admin: 07/04/18 10:17 Dose: 1 tab Simethicone (Phazyme Chew) 125 mg PO TIDAC [facility] Last Admin: 07/04/18 13:16 Dose: Not Given Sodium Chloride (Ns Flush) 2 ml IV.FLUSH PRN PRN PRN Reason: FLUSH AFTER USING IV ACCESS Sterile Water (Free Water) 200 ml G-TUBE Q6HR [facility] Last Admin: 07/04/18 13:15 Dose: Not Given Sucralfate (Carafate) 1 gm PO TID [facility] Last Admin: 07/04/18 13:15 Dose: 1 gm Temazepam (Restoril) 15 mg PO HS PRN PRN Reason: INSOMNIA Ursodiol (Actigall) 300 mg PO BID [facility] Last Admin: 07/04/18 10:17 Dose: 300 mg Allergies/Adverse Reactions: Allergies Allergy/AdvReac Type Severity Reaction Status Date / Time No Known Allergies Allergy Unverified 05/16/18 07:25 Physical Exam Vital signs: Vital Signs 07/03/18 16:00 07/03/18 17:45 07/03/18 20:00 Temperature 97.5 F L 97.7 F Pulse Rate 90 90 Respiratory Rate 20 12 18 Blood Pressure 159/84 H 164/89 H Pulse Oximetry 100 98 07/04/18 00:00 07/04/18 01:27 07/04/18 04:00 Temperature 98.9 F 98.5 F Pulse Rate 83 89 Respiratory Rate 18 16 18 Blood Pressure 152/82 H 152/89 H Pulse Oximetry 95 99 07/04/18 08:00 07/04/18 10:35 07/04/18 10:39 Temperature 97.8 F Pulse Rate 89 Respiratory Rate 16 16 16 Blood Pressure 151/85 H Pulse Oximetry 95 07/04/18 12:00 Temperature 97.7 F Pulse Rate 87 Respiratory Rate 16 Blood Pressure 154/81 H Pulse Oximetry 95 Intake & Output 07/03/18 07/04/18 07/04/18 18:59 06:59 18:59 Intake Total 1325 / 1325 1075 / 1075 Output Total 2 / 2 Balance 1323 / 1323 1075 / 1075 Intake: IV 1325 / 1325 1075 / 1075 Sodium Bicarbonate 8.4% Inj 75 1075 / 1075 1075 / 1075 MEQ In 1/2 Normal Saline Inj 1, 000 ML @ 100 mls/hr IV.CONT . [id number] [facility] Rx#:[id number] NS Inj 250 ML @ 15 mls/hr IV. 250 / 250 SIG ONCE [facility] Rx#:[id number] Output: Urine 2 / 2 Other: # Incontinent Voids 2 Date of Last Bowel Movement 07/02/18 # Bowel Movements 1 - Routine Neurological Exam alert, oriented to self and place. not oriented to date. poor recall of recent words. follows commands. speech normal CN intact MOTOR no focal weakness Objective Radiology Results: MRI brain---normal for age Laboratory Results - last 24 hr 07/03/18 07/03/18 07/03/18 17:36 17:36 17:36 WBC RBC Hgb Hct MCV MCH MCHC RDW Plt Count MPV Prelim Diff (Auto) Neut % (Auto) Lymph % (Auto) [place] % (Auto) Eos % (Auto) Baso % (Auto) Neut # (Auto) Lymph # (Auto) [place] # (Auto) Eos # (Auto) Baso # (Auto) WBC Differential Seg Neuts % (Manual) Band Neuts % (Manual) Lymphocytes % (Manual) Monocytes % (Manual) Metamyelocytes % (Man) Myelocytes % (Man) Abs Neuts (Manual) Differential Comment Platelet Estimate Platelet Morphology Sodium Potassium Chloride Carbon Dioxide Anion Gap BUN Creatinine Estimated GFR Random Glucose Calcium Phosphorus Magnesium Total Bilirubin AST ALT Alkaline Phosphatase Total Protein Albumin Vitamin B12 1195 H Vitamin D 25-Hydroxy 21.9 L Cancelled RPR Nonreactive 07/04/18 07/04/18 06:18 06:18 WBC 21.5 H RBC 3.69 L Hgb 10.6 L Hct 32.1 L MCV 87.0 MCH 28.9 MCHC 33.2 RDW 16.7 Plt Count 458 H MPV 7.5 Prelim Diff (Auto) Slide review pending Neut % (Auto) 93.4 H Lymph % (Auto) 5.6 L [place] % (Auto) 0.9 Eos % (Auto) 0.0 Baso % (Auto) 0.1 Neut # (Auto) 20.1 H Lymph # (Auto) 1.2 [place] # (Auto) 0.2 Eos # (Auto) 0.0 Baso # (Auto) 0.0 WBC Differential Manual diff final Seg Neuts % (Manual) 84 H Band Neuts % (Manual) 4 Lymphocytes % (Manual) 3 L Monocytes % (Manual) 1 Metamyelocytes % (Man) 4 H Myelocytes % (Man) 4 H Abs Neuts (Manual) 20.6 H Differential Comment . Platelet Estimate High H Platelet Morphology Normal Sodium 140 Potassium 3.3 L Chloride 105 Carbon Dioxide 23.6 Anion Gap 11 BUN 77 H Creatinine 3.99 H Estimated GFR 13 L Random Glucose 135 H Calcium 7.6 L Phosphorus 4.1 Magnesium 1.8 Total Bilirubin 0.2 AST 10 L ALT 13 Alkaline Phosphatase 82 Total Protein 5.5 L D Albumin 1.8 L Vitamin B12 Vitamin D 25-Hydroxy RPR Microbiology 07/01/18 13:46 Aerobic Blood Culture - Preliminary Blood - Peripheral No growth in 3 days Anaerobic Blood Culture - Preliminary No growth in 3 days 07/01/18 12:18 Aerobic Blood Culture - Preliminary Blood - Peripheral No growth in 3 days Anaerobic Blood Culture - Preliminary No growth in 3 days Review/Management - Diagnosis (1) Encephalopathy Code(s): G93.40 - Encephalopathy, unspecified Status: Acute Current Visit: Yes
--- NOTE | 2018-07-04 18:40 | P.PNGI ---
Subjective Interval history: She is awake resting in the bed currently appears comfortable but does note some occasional abdominal pain Less anxiety noted today, current hemoglobin 10.6 <Jordana Sebastian - Last Filed: 07/04/18 18:36> Physical Exam Vital signs: Vital Signs 07/03/18 20:00 07/04/18 00:00 07/04/18 01:27 Temperature 97.7 F 98.9 F Pulse Rate 90 83 Respiratory Rate 18 18 16 Blood Pressure 164/89 H 152/82 H Pulse Oximetry 98 95 07/04/18 04:00 07/04/18 08:00 07/04/18 10:35 Temperature 98.5 F 97.8 F Pulse Rate 89 89 Respiratory Rate 18 16 16 Blood Pressure 152/89 H 151/85 H Pulse Oximetry 99 95 07/04/18 10:39 07/04/18 12:00 07/04/18 16:00 Temperature 97.7 F 97.8 F Pulse Rate 87 85 Respiratory Rate 16 16 16 Blood Pressure 154/81 H 150/75 H Pulse Oximetry 95 99 Intake & Output 07/03/18 07/04/18 07/04/18 18:59 06:59 18:59 Intake Total 1325 / 1325 1075 / 1075 Output Total 2 / 2 Balance 1323 / 1323 1075 / 1075 Intake: IV 1325 / 1325 1075 / 1075 Sodium Bicarbonate 8.4% Inj 75 1075 / 1075 1075 / 1075 MEQ In 1/2 Normal Saline Inj 1, 000 ML @ 100 mls/hr IV.CONT . [id number] [facility] Rx#:[id number] NS Inj 250 ML @ 15 mls/hr IV. 250 / 250 SIG ONCE [facility] Rx#:[id number] Output: Urine 2 / 2 Other: # Voids 5 # Incontinent Voids 2 Date of Last Bowel Movement 07/02/18 07/04/18 # Bowel Movements 1 1 - Constitutional no acute distress - Routine HEENT Exam Head: Present: normocephalic ENT: Present: mucous membranes moist - Routine Respiratory Exam Present: accessory muscle use (Even, unlabored) - Routine Abdominal Exam Present: soft (Soft bowel sounds no obvious abdominal pain) <Jordana Sebastian - Last Filed: 07/04/18 18:36> Vital signs: Vital Signs 07/03/18 20:00 07/04/18 00:00 07/04/18 01:27 Temperature 97.7 F 98.9 F Pulse Rate 90 83 Respiratory Rate 18 18 16 Blood Pressure 164/89 H 152/82 H Pulse Oximetry 98 95 07/04/18 04:00 07/04/18 08:00 07/04/18 10:35 Temperature 98.5 F 97.8 F Pulse Rate 89 89 Respiratory Rate 18 16 16 Blood Pressure 152/89 H 151/85 H Pulse Oximetry 99 95 07/04/18 10:39 07/04/18 12:00 07/04/18 16:00 Temperature 97.7 F 97.8 F Pulse Rate 87 85 Respiratory Rate 16 16 16 Blood Pressure 154/81 H 150/75 H Pulse Oximetry 95 99 Intake & Output 07/04/18 07/04/18 07/05/18 06:59 18:59 06:59 Intake Total 1075 / 1075 Balance 1075 / 1075 Intake: IV 1075 / 1075 Sodium Bicarbonate 8.4% Inj 75 1075 / 1075 MEQ In 1/2 Normal Saline Inj 1, 000 ML @ 100 mls/hr IV.CONT . [id number] [facility] Rx#:[id number] Other: # Voids 5 # Incontinent Voids 2 Date of Last Bowel Movement 07/04/18 # Bowel Movements 1 1 <Gregg Ortega E - Last Filed: 07/04/18 19:44> Results - Labs CBC & Chem 7: 07/04/18 06:18 07/04/18 06:18 Laboratory Results - last 24 hr 07/03/18 07/03/18 07/04/18 17:36 17:36 06:18 WBC 21.5 H RBC 3.69 L Hgb 10.6 L Hct 32.1 L MCV 87.0 MCH 28.9 MCHC 33.2 RDW 16.7 Plt Count 458 H MPV 7.5 Prelim Diff (Auto) Slide review pending Neut % (Auto) 93.4 H Lymph % (Auto) 5.6 L [place] % (Auto) 0.9 Eos % (Auto) 0.0 Baso % (Auto) 0.1 Neut # (Auto) 20.1 H Lymph # (Auto) 1.2 [place] # (Auto) 0.2 Eos # (Auto) 0.0 Baso # (Auto) 0.0 WBC Differential Manual diff final Seg Neuts % (Manual) 84 H Band Neuts % (Manual) 4 Lymphocytes % (Manual) 3 L Monocytes % (Manual) 1 Metamyelocytes % (Man) 4 H Myelocytes % (Man) 4 H Abs Neuts (Manual) 20.6 H Differential Comment . Platelet Estimate High H Platelet Morphology Normal Sodium Potassium Chloride Carbon Dioxide Anion Gap BUN Creatinine Estimated GFR Random Glucose Calcium Phosphorus Magnesium Total Bilirubin AST ALT Alkaline Phosphatase Total Protein Albumin Vitamin B12 1195 H Vitamin D 25-Hydroxy 21.9 L RPR Nonreactive 07/04/18 06:18 WBC RBC Hgb Hct MCV MCH MCHC RDW Plt Count MPV Prelim Diff (Auto) Neut % (Auto) Lymph % (Auto) [place] % (Auto) Eos % (Auto) Baso % (Auto) Neut # (Auto) Lymph # (Auto) [place] # (Auto) Eos # (Auto) Baso # (Auto) WBC Differential Seg Neuts % (Manual) Band Neuts % (Manual) Lymphocytes % (Manual) Monocytes % (Manual) Metamyelocytes % (Man) Myelocytes % (Man) Abs Neuts (Manual) Differential Comment Platelet Estimate Platelet Morphology Sodium 140 Potassium 3.3 L Chloride 105 Carbon Dioxide 23.6 Anion Gap 11 BUN 77 H Creatinine 3.99 H Estimated GFR 13 L Random Glucose 135 H Calcium 7.6 L Phosphorus 4.1 Magnesium 1.8 Total Bilirubin 0.2 AST 10 L ALT 13 Alkaline Phosphatase 82 Total Protein 5.5 L D Albumin 1.8 L Vitamin B12 Vitamin D 25-Hydroxy RPR Microbiology 07/01/18 13:46 Blood - Peripheral Aerobic Blood Culture - Preliminary No growth in 3 days 07/01/18 13:46 Blood - Peripheral Anaerobic Blood Culture - Preliminary No growth in 3 days 07/01/18 12:18 Blood - Peripheral Aerobic Blood Culture - Preliminary No growth in 3 days 07/01/18 12:18 Blood - Peripheral Anaerobic Blood Culture - Preliminary No growth in 3 days - Imaging Impressions Abdomen X-Ray 07/04/18 00:00 CONCLUSION: The presumed injected oral contrast material in the GJ tube fills the jejunum indicating normal position of the GJ tube. - Procedures GI Procedure 06/30/18 with IR An ERCP was performed by the ordering physician. The images demonstrate a metallic stent in the mid and distal common bile duct. The stent is traversed with a guidewire which extends into the intrahepatic bile ducts. The final image demonstrates a plastic stent within the metallic stent. The intrahepatic bile ducts do not appear to be significantly dilated <Jordana Sebastian - Last Filed: 07/04/18 18:36> - Labs CBC & Chem 7: 07/04/18 06:18 07/04/18 06:18 Laboratory Results - last 24 hr 07/03/18 07/04/18 07/04/18 17:36 06:18 06:18 WBC 21.5 H RBC 3.69 L Hgb 10.6 L Hct 32.1 L MCV 87.0 MCH 28.9 MCHC 33.2 RDW 16.7 Plt Count 458 H MPV 7.5 Prelim Diff (Auto) Slide review pending Neut % (Auto) 93.4 H Lymph % (Auto) 5.6 L [place] % (Auto) 0.9 Eos % (Auto) 0.0 Baso % (Auto) 0.1 Neut # (Auto) 20.1 H Lymph # (Auto) 1.2 [place] # (Auto) 0.2 Eos # (Auto) 0.0 Baso # (Auto) 0.0 WBC Differential Manual diff final Seg Neuts % (Manual) 84 H Band Neuts % (Manual) 4 Lymphocytes % (Manual) 3 L Monocytes % (Manual) 1 Metamyelocytes % (Man) 4 H Myelocytes % (Man) 4 H Abs Neuts (Manual) 20.6 H Differential Comment . Platelet Estimate High H Platelet Morphology Normal Sodium 140 Potassium 3.3 L Chloride 105 Carbon Dioxide 23.6 Anion Gap 11 BUN 77 H Creatinine 3.99 H Estimated GFR 13 L Random Glucose 135 H Calcium 7.6 L Phosphorus 4.1 Magnesium 1.8 Total Bilirubin 0.2 AST 10 L ALT 13 Alkaline Phosphatase 82 Total Protein 5.5 L D Albumin 1.8 L RPR Nonreactive Microbiology 07/01/18 13:46 Blood - Peripheral Aerobic Blood Culture - Preliminary No growth in 3 days 07/01/18 13:46 Blood - Peripheral Anaerobic Blood Culture - Preliminary No growth in 3 days 07/01/18 12:18 Blood - Peripheral Aerobic Blood Culture - Preliminary No growth in 3 days 07/01/18 12:18 Blood - Peripheral Anaerobic Blood Culture - Preliminary No growth in 3 days - Imaging Impressions Abdomen X-Ray 07/04/18 00:00 CONCLUSION: The presumed injected oral contrast material in the GJ tube fills the jejunum indicating normal position of the GJ tube. <Gregg Ortega E - Last Filed: 07/04/18 19:44> Assessment and Plan - Plan 07/01/2018 patient is resting in the bed mild generalized weakness but no acute distress noted. Initial hemoglobin reviewed at 8.7 but now shows last result as 7.2. GJ tube without any acute erythema at [facility] at 45 cc an hour. Patient also has renal diet and states that she is going to eat this a.m. we will continue to follow the previous tube feed and dietary recommendations .WBC count 30.1 unspecified. Patient states she has the urgency for bowel defecation now. Currently patient denies any nausea or vomiting. Patient is status post stent removal and placement of new stent ERCP. patient will need evaluation postop with GI to follow stent progression and removal in the future. 07/02/2018 according to staff patient had fall approximately over 400 today. Questionable GJ tube displacement. Planning to evaluate an INR today. Current feedings off for now. Patient does appear to have some mild anxiety and increased confusion today during my visit. Calling out wanting to see her family current hemoglobin 7.2. Abdomen is soft without any obvious changes or pain to palpation. Lipase level normalized 42. Patient's pancreatitis is chronic, current need is to evaluate her nutritional needs. 07/03/2018 patient is still showing some mild altered mental status but appears to be better and less anxious with granddaughter in the room. Patient was evaluated , possible metabolic encephalopathy. Currently no feedings over the past 24 hours status post patient's fall. Granddaughter requested Jevity 1.5 to be restarted and states that her grandmother did better with Jevity at home then recent new feedings of plan. Tube feeds are currently on hold until INR has a chance to check tube placement status post patient's fall on 07/02/2018. Plan for recheck with INR on 07/04/2018. Patient has chronic pancreatitis, will check vitamin levels A, D, E, and B12. 07/04/2018 patient is pending JG tube placement check to be done per IR. Appears now that the tube is in correct position and patient appears to be feeling somewhat better without any acute abdominal pain at rest. Will restart feedings. Patient is fairly stable from a GI standpoint and we will sign off at this point Plan: Diet regular soft foods, restart tube feedings Creon, PPI Supportive care Patient was seen per Dr. ortega and myself, note was written on his behalf <Jordana Sebastian - Last Filed: 07/04/18 18:36> - Attending Attestation Patient seen and examined she seems to be doing very well she is resting in bed tolerating her intake her GJ tube is functional but she is eating orally Patient presenting with abdominal pain found to have choledocholithiasis with known history of chronic pancreatitis and currently doing well clinically except for her white count is elevated etiology unclear Continue with current supportive care Monitor labs <Gregg Ortega - Last Filed: 07/04/18 19:44>
--- NOTE | 2018-07-04 19:06 | P.PNNP ---
Subjective Interval history: Patient with abdominal pain Physical Exam Vital signs: Vital Signs 07/03/18 20:00 07/04/18 00:00 07/04/18 01:27 Temperature 97.7 F 98.9 F Pulse Rate 90 83 Respiratory Rate 18 18 16 Blood Pressure 164/89 H 152/82 H Pulse Oximetry 98 95 07/04/18 04:00 07/04/18 08:00 07/04/18 10:35 Temperature 98.5 F 97.8 F Pulse Rate 89 89 Respiratory Rate 18 16 16 Blood Pressure 152/89 H 151/85 H Pulse Oximetry 99 95 07/04/18 10:39 07/04/18 12:00 07/04/18 16:00 Temperature 97.7 F 97.8 F Pulse Rate 87 85 Respiratory Rate 16 16 16 Blood Pressure 154/81 H 150/75 H Pulse Oximetry 95 99 Intake & Output 07/04/18 07/04/18 07/05/18 06:59 18:59 06:59 Intake Total 1075 / 1075 Balance 1075 / 1075 Intake: IV 1075 / 1075 Sodium Bicarbonate 8.4% Inj 75 1075 / 1075 MEQ In 1/2 Normal Saline Inj 1, 000 ML @ 100 mls/hr IV.CONT . [id number] [facility] Rx#:[id number] Other: # Voids 5 # Incontinent Voids 2 Date of Last Bowel Movement 07/04/18 # Bowel Movements 1 1 - Constitutional no acute distress - Routine Neck Exam Present: supple - Routine Respiratory Exam Present: CTA bilaterally - Routine Cardiovascular Exam Present: RRR - Routine Abdominal Exam Present: tenderness - Routine Extremities Exam Present: full ROM Assessment and Plan - Assessment (1) Acute UTI Code(s): N39.0 - Urinary tract infection, site not specified Status: Acute (2) Abdominal pain Code(s): R10.9 - Unspecified abdominal pain Status: Acute (3) Acute on chronic kidney failure Code(s): N17.9 - Acute kidney failure, unspecified; N18.9 - Chronic kidney disease, unspecified Status: Acute Qualifiers: Acute renal failure type: unspecified Chronic kidney disease stage: unspecified stage Qualified Code(s): N17.9 - Acute kidney failure, unspecified ; N18.9 - Chronic kidney disease, unspecified (4) Idiopathic pancreatitis Code(s): K85.00 - Idiopathic acute pancreatitis without necrosis or infection Status: Chronic Qualifiers: - Plan Continue with the hydration and IV antibiotics continue monitor BMP Creatinine slowly improvin.7 ->4.5 -> 4.4 -->3.9 On IVFs with 1/2 NS + 75meq NaHCO3. W 100cc/hour. Replace KCl Patient voiding Avoid nephrotoxins Monitor intake and output Follow BMP Being seen with neurology for AMS - imaging negative, continue to monitor. Following with GI for pancreatitis, biliary stent.
[2018-07-04] MEDS ORDERED: Potassium Chlor 20 mEq Premix 20 MEQ/100 ML PIGGYBACK IV.SIG ONE (20:00)
[2018-07-04] MEDS ORDERED: Diatrizoate Meglum/Diatrizoate Sod Liq 120 ML Bottle (for RAD diag) G-TUBE ONE (22:10)
[2018-07-05] MEDS: Sodium Bicarbonate 8.4% Inj 75 MEQ in Sodium Chloride 0.45 % Inj 1,000 ML IV.CONT SCH ×3 (00:07→22:33)
[2018-07-05] MEDS: MethylPREDNISolone Sod Succinate Inj 125 MG/2 ML Vial IV.PUSH SCH ×3 (05:12→18:37)
[2018-07-05] MEDS: Morphine Inj 4 MG/ML Vial IV.PUSH PRN ×3 (07:42→18:37)
--- NOTE | 2018-07-05 09:42 | P.PNIM ---
Subjective Interval history: trying to eat breakfast. Physical Exam Vital signs: Vital Signs 07/04/18 10:35 07/04/18 10:39 07/04/18 12:00 Temperature 97.7 F Pulse Rate 87 Respiratory Rate 16 16 16 Blood Pressure 154/81 H Pulse Oximetry 95 07/04/18 16:00 07/04/18 18:00 07/04/18 19:19 Temperature 97.8 F 98.1 F Pulse Rate 85 91 H Respiratory Rate 16 16 18 Blood Pressure 150/75 H 137/69 Pulse Oximetry 99 95 07/04/18 23:30 07/05/18 04:12 07/05/18 06:30 Temperature 97.9 F 98.2 F Pulse Rate 94 H 92 H Respiratory Rate 18 18 18 Blood Pressure 152/73 H 161/88 H Pulse Oximetry 97 98 07/05/18 08:26 Temperature Pulse Rate Respiratory Rate 18 Blood Pressure Pulse Oximetry Intake & Output 07/04/18 07/05/18 07/05/18 18:59 06:59 18:59 Intake Total 2150 / 2150 1577 / 1577 Balance 2150 / 2150 1577 / 1577 Weight 68 kg Intake: IV 2150 / 2150 100 / 100 Sodium Bicarbonate 8.4% Inj 75 2150 / 2150 MEQ In 1/2 Normal Saline Inj 1, 000 ML @ 100 mls/hr IV.CONT . [id number] [facility] Rx#:[id number] KCl 20 mEq Premix Inj 20 meq In 100 / 100 100 ml @ 50 mls/hr IV.SIG ONCE ONE Rx#:[id number] Oral 480 / 480 Tube Feeding 597 / 597 Water Bolus Amount 400 / 400 Other: # Voids 5 # Incontinent Voids 3 Date of Last Bowel Movement 07/04/18 07/05/18 # Bowel Movements 1 # Incontinent Bowel Movements 4 lying in bed asking for her breakfast heart reg lung cta abd gj tube.connected to tf ext no edema Results - Labs CBC & Chem 7: 07/04/18 06:18 07/04/18 06:18 Laboratory Results - last 24 hr 07/03/18 17:36 RPR Nonreactive Microbiology 07/01/18 13:46 Blood - Peripheral Aerobic Blood Culture - Preliminary No growth in 3 days 07/01/18 13:46 Blood - Peripheral Anaerobic Blood Culture - Preliminary No growth in 3 days 07/01/18 12:18 Blood - Peripheral Aerobic Blood Culture - Preliminary No growth in 3 days 07/01/18 12:18 Blood - Peripheral Anaerobic Blood Culture - Preliminary No growth in 3 days - Imaging Impressions Abdomen X-Ray 07/04/18 00:00 CONCLUSION: The presumed injected oral contrast material in the GJ tube fills the jejunum indicating normal position of the GJ tube. - Procedures GI Procedure 06/30/18 with IR An ERCP was performed by the ordering physician. The images demonstrate a metallic stent in the mid and distal common bile duct. The stent is traversed with a guidewire which extends into the intrahepatic bile ducts. The final image demonstrates a plastic stent within the metallic stent. The intrahepatic bile ducts do not appear to be significantly dilated Assessment and Plan - Assessment (1) Idiopathic pancreatitis Code(s): K85.00 - Idiopathic acute pancreatitis without necrosis or infection Status: Chronic Plan: Idiopathic pancreatitis - Ms. Larsen is an 82 y/o AAF with recurrent idiopathic pancreatitis. She has been hospitalized numerous times for issues with pain control related to recurrent pancreatitis. Her last admission was from 03/03/18 to 03/28/18 and she had biliary obstruction at that time. - During that admission she underwent evaluation with ERCP (03/03/18) which noted multiple stones, migrated metal stent up into CBD, could not put plastic stent due to "kink" in current stent according to GI notes. She required PTC placement on 03/04 by IR which noted severe obstruction of the proximal common bile duct stent with very challenging recanalization requiring multiple wires and catheters. biliary stent placement. She had to have a repeat ERCP (03/07/18) and had to have the metal stent cleared of debris and they were able to confirm complete clearance of the stent with good emptying through the stent. She had a percutaneous cholangiogram on 03/09/18 where the external portion of biliary drain was removed and the report showed some small hyperplasia within the distal aspect of the biliary stent but there is a patent channel down to the small bowel. -s/p ercp 05/23 with balloon sweep of stone fragments/debris from metal stent and placement of new stent - GJ tube exchange 710 with IR -mesenteric angio with IR 05/24. patent vessels. - Pt presented back to the ED at [facility] [place] on 06/29/18 with continued abdominal pain that is similar to her previous pancreatitis pain. - Her labs in the ED revealed WBC count 30.1, Cr 5.57 /BUN 73, Lipase 234, TBili 0.3, AST 15, ALT 11, AlkPhos 139. Abdomen/Pelvis CT 06/29/18 reveals: 1. Biliary stent with interval Silastic stent. Air in the left hepatic ducts. 2. I don't see an etiology for the patient's right-sided abdominal pain. Lack of intravenous and oral contrast makes detection of subtle abnormalities difficult 3. Inflammatory processes such as pyonephritis cannot be excluded. GI Procedure 06/30/18 with IR An ERCP was performed by the ordering physician. The images demonstrate a metallic stent in the mid and distal common bile duct. The stent is traversed with a guidewire which extends into the intrahepatic bile ducts. The final image demonstrates a plastic stent within the metallic stent. The intrahepatic bile ducts do not appear to be significantly dilated - Pain control with Morphine and [place] PRN - zofran as need for N/V - J-tube is NOT flushing, nepro is on hold -IR consulted on 07/04. GJ tube positioned well and working - Azithromycin and cefepime, stopped. No indication of infection. No fever. No cough, no dysuria - (07/01) WBC increased to 31.4, likely inflammatory - Added IV solumedrol (07/01) - WBC (07/02) 24K, 22.5 (07/03), 21.5 (07/04) - blood cultures (07/01) --> NGTD - urine cx (06/29) --> no growth - Supportive care - DVT prophylaxis with SCDs - (07/04) patient C/P abd pain, lipase ordered CMP reviewed - Morphine available as needed for pain labwork pending. tf resumed and taking po. prn pain meds. AMS- appears to have resolved (07/04) - Pt had overnight fall 07/01 - CT brain (07/02) --> NO acute findings - free T4, folate, ammonia --> WNL - TSH .161. Repeat TSH in a few days and again in 1 month outpt. - MRI brain (07/02) --> no acute findings - Case was d/w Neurology, Dr. Kline (07/02). AMS possibly d/t metabolic encephalopathy - case d/w nursing (07/03). Pt's confusion seems to wax and wane. - EEG reviewed reveals: Mildly abnormal study consistent with mild encephalopathy Acute on chronic kidney failure - Pt with baseline stage 3 CKD, pt follows with Dr. Melara - Her labs at admission noted acute worsening BUN 73 and creatinine 5.57 estimated GFR 9 -> (07/01) BUN 72, creatinine 4.73, GFR 11 - Cr 4.53 (07/02), Cr 4.44 (07/03), Cr 3.99 (07/04) - Nephrology also following - Avoid nephrotoxic agents cont ivf per renal. labs pending. UTI - Urine culture reveals: No growth in 48 hours HTN (hypertension) - Cont. home meds - Monitor GERD (gastroesophageal reflux disease) - PPI Anemia - Pt with an acute decrease in her chronic anemia - on admission patient's Hgb - obtain iron indices - transfuse 2 units. DVT prophylaxis with SCDs (2) History of biliary stent insertion Code(s): Z98.890 - Other specified postprocedural states Status: Acute Plan: (1) Idiopathic pancreatitis - Ms. Larsen is an 82 y/o AAF with recurrent idiopathic pancreatitis. She has been hospitalized numerous times for issues with pain control related to recurrent pancreatitis. Her last admission was from 03/03/18 to 03/28/18 and she had biliary obstruction at that time. - During that admission she underwent evaluation with ERCP (03/03/18) which noted multiple stones, migrated metal stent up into CBD, could not put plastic stent due to "kink" in current stent according to GI notes. She required PTC placement on 03/04 by IR which noted severe obstruction of the proximal common bile duct stent with very challenging recanalization requiring multiple wires and catheters. biliary stent placement. She had to have a repeat ERCP (03/07/18) and had to have the metal stent cleared of debris and they were able to confirm complete clearance of the stent with good emptying through the stent. She had a percutaneous cholangiogram on 03/09/18 where the external portion of biliary drain was removed and the report showed some small hyperplasia within the distal aspect of the biliary stent but there is a patent channel down to the small bowel. -s/p ercp 05/23 with balloon sweep of stone fragments/debris from metal stent and placement of new stent - GJ tube exchange 710 with IR -mesenteric angio with IR 05/24. patent vessels. - Pt presented back to the ED at [facility] [place] on 06/29/18 with continued abdominal pain that is similar to her previous pancreatitis pain. - Her labs in the ED revealed WBC count , Cr /BUN , Lipase . TBili , AST , ALT , AlkPhos . Abdomen/Pelvis CT 06/29/18 reveals: 1. Biliary stent with interval Silastic stent. Air in the left hepatic ducts. 2. I don't see an etiology for the patient's right-sided abdominal pain. Lack of intravenous and oral contrast makes detection of subtle abnormalities difficult 3. . Inflammatory processes such as pyonephritis cannot be excluded. GI Procedure 06/30/18 with IR An ERCP was performed by the ordering physician. The images demonstrate a metallic stent in the mid and distal common bile duct. The stent is traversed with a guidewire which extends into the intrahepatic bile ducts. The final image demonstrates a plastic stent within the metallic stent. The intrahepatic bile ducts do not appear to be significantly dilated - Pain control PRN with [place] PRN - zofran as need for N/V - obtain repeat CBC, CMP, Mag, lipase in AM - will try to resume Nepro TF at 15ml/hour and slowly titrate back to 45ml/hour - Supportive care - DVT prophylaxis with SCDs - Dr. Eddy will discuss with Pt/daughter, Caitlyn, (by phone) later today (2) Acute on chronic kidney failure - Pt with baseline stage 3 CKD, pt follows with Dr. Melara - Her labs at admission with a noted acute worsening of her baseline CKD. - consultation placed to Nephrology - Avoid nephrotoxic agents (3) HTN (hypertension) - Cont. home meds - Monitor (4) GERD (gastroesophageal reflux disease) - PPI (5) Anemia - Pt with an acute decrease in her chronic anemia - on admission patient's Hgb DVT prophylaxis with SCDs (3) Acute on chronic kidney failure Code(s): N17.9 - Acute kidney failure, unspecified; N18.9 - Chronic kidney disease, unspecified Status: Acute (4) Gastroparesis Code(s): K31.84 - Gastroparesis Status: Acute (1) Idiopathic pancreatitis Qualifiers: (3) Acute on chronic kidney failure Qualifiers: Acute renal failure type: unspecified Chronic kidney disease stage: unspecified stage Qualified Code(s): N17.9 - Acute kidney failure, unspecified ; N18.9 - Chronic kidney disease, unspecified
[2018-07-05] MEDS: Simethicone 125 MG Chew Tablet PO SCH ×3 (10:39→16:23)
[2018-07-05] MEDS: amLODIPine 5 MG Tablet PO SCH (10:39)
[2018-07-05] MEDS: Lipase/Protease/Amylase 12/38/60 DR Capsule PO SCH ×3 (10:39→18:38)
[2018-07-05] MEDS: Metoprolol Tartrate 25 MG Tablet PO SCH ×2 (10:39→22:19)
[2018-07-05] MEDS: Sucralfate 1 GM Tablet PO SCH ×3 (10:39→18:38)
[2018-07-05] MEDS: Senna/Docusate Sodium 8.6/50 MG Tablet PO SCH ×2 (10:40→22:20)
[2018-07-05 10:50] LABS: Albumin 1.6 g/dL (3.4-5.0); Calcium 7.3 mg/dL (8.5-10.1); Carbon Dioxide 21.7 meq/L (21.0-32.0); Magnesium 1.7 mg/dL (1.5-2.5); Phosphorus 3.2 mg/dL (2.5-4.9); Potassium 3.9 meq/L (3.5-5.1)
--- NOTE | 2018-07-05 10:52 | P.DIET ---
Nutritional Evaluation Type of nutrition evaluation: initial Nutrition consult regarding: Tube Feeding Nutrition screening: [facility] [place] ("family states pt did better on Jevity 1.5, please speak to granddaughter") Subjective Subjective Comments: Granddaughter was not there with pt when visited. Eating ~25%. Had Jevity 1.5 TFing at home. Objective - Diagnosis Abdominal Pain. PMH see H&P - Objective Leon body weight: 59 kg % IBW: 106 Energy Needs - Lower Range (kCal/kg): 25 Energy Needs - Upper Range (kCal/kg): 30 Lower Limit kCal/kg (kCals): 1,575 Upper Limit kCal/kg (kCals): 1,890 Lower Limit Protein Factor (Grams per Kg): 0.6 Upper Limit Protein Factor (Grams per Kg): 1 Lower Protein Needs (Protein): 38 Upper Protein Needs (Protein): 63 Dietitian Reviewed in Medical Record: Current diet, Curent medications, Intake & Output, Labs, Medical history, Tube feeding, Wound/DTI Diet Order: regular Objective Comments: Pt. on Creon and lactulose Labs: BUN/creat 77/3.99, Est GFR 13, glu 135 Feeding - Current Tube Feeding Tube Feeding Product: Nepro Tube Feeding Rate: 45 Current kCals Provided by Tube Feedin,944 Current Protein Provided by Tube Feeding (gPRO): 88 Current Free H2O Provided (m/l): 785 Assessment Assessment: Pt. is at nutritional risk due to dx. and need for TFing. Pt. presented to the emergency department for abdominal pain. The patient had a 3 day history of epigastric abdominal pain that radiates into the chest and is associated with nausea and vomiting. Pt. in a acute on chronic renal failure stage 3. Recommend changing TFing to Suplena @ goal rate of 40mls/hr. Will provide 1728kcals, 43g of protein and 708mls of free water. Nepro TFing is formulated for pts on dialysis. Recommendations: Recommend changing TFing to Suplena @ goal rate of 40mls/hr. Dietitian to Monitor: Lab values, Renal labs, Diet tolerance, Tube feeding tolerance, Weight change, Residuals, PO Intake, Wound/skin status, Medical course
[2018-07-05 10:53] LABS: Total Protein 5.6 g/dL (6.4-8.2)
[2018-07-05 10:57] LABS: Hematocrit 36.6 % (35.0-46.0); Hemoglobin 11.9 gm/dL (11.6-15.3); Mean Corpuscular HGB Conc 32.7 % (32.0-36.0); Mean Corpuscular Hemoglobin 29.9 pg (27.0-34.0); Mean Corpuscular Volume 91.7 fL (80.0-100.0); Platelet Count 441 th/mm3 (150-450); Red Blood Count 3.99 mil/mm3 (4.00-5.30); Red Cell Distribution Width 17.1 % (11.6-17.2)
--- NOTE | 2018-07-05 15:30 | P.PNGI ---
Subjective Interval history: Patient is resting comfortably in the bed more alert today and denies any abdominal pain Tolerating Nepro 1.8 tube feedings at 45 cc an hour Current hemoglobin 11.9 and climbing, WBC count 25,000, also elevated <Jordana Sebastian - Last Filed: 07/05/18 15:26> Physical Exam Vital signs: Vital Signs 07/04/18 16:00 07/04/18 18:00 07/04/18 19:19 Temperature 97.8 F 98.1 F Pulse Rate 85 91 H Respiratory Rate 16 16 18 Blood Pressure 150/75 H 137/69 Pulse Oximetry 99 95 07/04/18 23:30 07/05/18 04:12 07/05/18 06:30 Temperature 97.9 F 98.2 F Pulse Rate 94 H 92 H Respiratory Rate 18 18 18 Blood Pressure 152/73 H 161/88 H Pulse Oximetry 97 98 07/05/18 08:00 07/05/18 08:26 07/05/18 12:00 Temperature 97.8 F 97.4 F L Pulse Rate 86 89 Respiratory Rate 16 18 16 Blood Pressure 159/81 H 136/70 Pulse Oximetry 97 96 Intake & Output 07/04/18 07/05/18 07/05/18 18:59 06:59 18:59 Intake Total 2150 / 2150 1577 / 1577 Balance 2150 / 2150 1577 / 1577 Weight 68 kg Intake: IV 2150 / 2150 100 / 100 Sodium Bicarbonate 8.4% Inj 75 2150 / 2150 MEQ In 1/2 Normal Saline Inj 1, 000 ML @ 100 mls/hr IV.CONT . [id number] [facility] Rx#:[id number] KCl 20 mEq Premix Inj 20 meq In 100 / 100 100 ml @ 50 mls/hr IV.SIG ONCE ONE Rx#:[id number] Oral 480 / 480 Tube Feeding 597 / 597 Water Bolus Amount 400 / 400 Other: # Voids 5 # Incontinent Voids 3 Date of Last Bowel Movement 07/04/18 07/05/18 # Bowel Movements 1 # Incontinent Bowel Movements 4 - Constitutional no acute distress - Routine HEENT Exam Head: Present: normocephalic ENT: Present: mucous membranes moist - Routine Respiratory Exam Present: accessory muscle use (No shortness of breath, respirations even and unlabored) - Routine Cardiovascular Exam Present: S1, S2 - Routine Abdominal Exam Present: soft, normoactive bowel sounds, drain (GJ tube) - Routine Skin Exam Present: intact <Jordana Sebastian - Last Filed: 07/05/18 15:26> Vital signs: Vital Signs 07/05/18 04:12 07/05/18 06:30 07/05/18 08:00 Temperature 98.2 F 97.8 F Pulse Rate 92 H 86 Respiratory Rate 18 18 16 Blood Pressure 161/88 H 159/81 H Pulse Oximetry 98 97 07/05/18 08:26 07/05/18 12:00 07/05/18 16:00 Temperature 97.4 F L 97.9 F Pulse Rate 89 86 Respiratory Rate 18 16 16 Blood Pressure 136/70 165/84 H Pulse Oximetry 96 98 07/05/18 20:00 Temperature 99 F Pulse Rate 91 H Respiratory Rate 18 Blood Pressure 152/76 H Pulse Oximetry 94 L Intake & Output 07/05/18 07/05/18 07/06/18 06:59 18:59 06:59 Intake Total 1577 / 1577 1315 / 1315 4520 / 4520 Output Total 8 8 600 / 600 Balance 1577 / 1577 1307 / 1307 3920 / 3920 Weight 68 kg Intake: IV 100 / 100 1075 / 1075 2000 / 2000 Sodium Bicarbonate 8.4% Inj 75 1075 / 1075 2000 / 2000 MEQ In 1/2 Normal Saline Inj 1, 000 ML @ 100 mls/hr IV.CONT . [id number] [facility] Rx#:[id number] KCl 20 mEq Premix Inj 20 meq In 100 / 100 100 ml @ 50 mls/hr IV.SIG ONCE ONE Rx#:[id number] Oral 480 / 480 240 / 240 280 / 280 Tube Feeding 597 / 597 540 / 540 Tube Irrigant 600 / 600 Water Bolus Amount 400 / 400 Other 1100 / 1100 Output: Urine 4 / 4 600 / 600 Stool 4 / 4 Other: Other Intake Source Saline Solution # Incontinent Voids 3 2 Date of Last Bowel Movement 07/05/18 07/04/18 07/05/18 # Incontinent Bowel Movements 4 1 <Gregg Ortega - Last Filed: 07/06/18 00:29> Results - Labs CBC & Chem 7: 07/05/18 09:41 07/05/18 09:41 Laboratory Results - last 24 hr 07/05/18 07/05/18 09:41 09:41 WBC 25.0 H RBC 3.99 L Hgb 11.9 Hct 36.6 MCV 91.7 D MCH 29.9 MCHC 32.7 RDW 17.1 Plt Count 441 MPV 8.0 Sodium 136 Potassium 3.9 Chloride 103 Carbon Dioxide 21.7 Anion Gap 11 BUN 79 H Creatinine 3.85 H Estimated GFR 14 L Random Glucose 231 H Calcium 7.3 L* Prot Corrected Calcium 8.1 L Phosphorus 3.2 Magnesium 1.7 Total Bilirubin 0.2 AST 14 L ALT 16 Alkaline Phosphatase 100 Total Protein 5.6 L Albumin 1.6 L Lipase 202 Microbiology 07/01/18 13:46 Blood - Peripheral Aerobic Blood Culture - Preliminary No growth in 4 days 07/01/18 13:46 Blood - Peripheral Anaerobic Blood Culture - Preliminary No growth in 4 days 07/01/18 12:18 Blood - Peripheral Aerobic Blood Culture - Preliminary No growth in 4 days 07/01/18 12:18 Blood - Peripheral Anaerobic Blood Culture - Preliminary No growth in 4 days - Procedures GI Procedure 06/30/18 with IR An ERCP was performed by the ordering physician. The images demonstrate a metallic stent in the mid and distal common bile duct. The stent is traversed with a guidewire which extends into the intrahepatic bile ducts. The final image demonstrates a plastic stent within the metallic stent. The intrahepatic bile ducts do not appear to be significantly dilated <Jordana Sebastian - Last Filed: 07/05/18 15:26> - Labs CBC & Chem 7: 07/05/18 09:41 07/05/18 09:41 Laboratory Results - last 24 hr 07/05/18 07/05/18 09:41 09:41 WBC 25.0 H RBC 3.99 L Hgb 11.9 Hct 36.6 MCV 91.7 D MCH 29.9 MCHC 32.7 RDW 17.1 Plt Count 441 MPV 8.0 Sodium 136 Potassium 3.9 Chloride 103 Carbon Dioxide 21.7 Anion Gap 11 BUN 79 H Creatinine 3.85 H Estimated GFR 14 L Random Glucose 231 H Calcium 7.3 L* Prot Corrected Calcium 8.1 L Phosphorus 3.2 Magnesium 1.7 Total Bilirubin 0.2 AST 14 L ALT 16 Alkaline Phosphatase 100 Total Protein 5.6 L Albumin 1.6 L Lipase 202 Microbiology 07/01/18 13:46 Blood - Peripheral Aerobic Blood Culture - Preliminary No growth in 4 days 07/01/18 13:46 Blood - Peripheral Anaerobic Blood Culture - Preliminary No growth in 4 days 07/01/18 12:18 Blood - Peripheral Aerobic Blood Culture - Preliminary No growth in 4 days 07/01/18 12:18 Blood - Peripheral Anaerobic Blood Culture - Preliminary No growth in 4 days <Gregg Ortega - Last Filed: 07/06/18 00:29> Assessment and Plan - Plan 07/01/2018 patient is resting in the bed mild generalized weakness but no acute distress noted. Initial hemoglobin reviewed at 8.7 but now shows last result as 7.2. GJ tube without any acute erythema at [facility] at 45 cc an hour. Patient also has renal diet and states that she is going to eat this a.m. we will continue to follow the previous tube feed and dietary recommendations .WBC count 30.1 unspecified. Patient states she has the urgency for bowel defecation now. Currently patient denies any nausea or vomiting. Patient is status post stent removal and placement of new stent ERCP. patient will need evaluation postop with GI to follow stent progression and removal in the future. 07/02/2018 according to staff patient had fall approximately over 400 today. Questionable GJ tube displacement. Planning to evaluate an INR today. Current feedings off for now. Patient does appear to have some mild anxiety and increased confusion today during my visit. Calling out wanting to see her family current hemoglobin 7.2. Abdomen is soft without any obvious changes or pain to palpation. Lipase level normalized 42. Patient's pancreatitis is chronic, current need is to evaluate her nutritional needs. 07/03/2018 patient is still showing some mild altered mental status but appears to be better and less anxious with granddaughter in the room. Patient was evaluated , possible metabolic encephalopathy. Currently no feedings over the past 24 hours status post patient's fall. Granddaughter requested Jevity 1.5 to be restarted and states that her grandmother did better with Jevity at home then recent new feedings of plan. Tube feeds are currently on hold until INR has a chance to check tube placement status post patient's fall on 07/02/2018. Plan for recheck with INR on 07/04/2018. Patient has chronic pancreatitis, will check vitamin levels A, D, E, and B12. 07/04/2018 patient is pending JG tube placement check to be done per IR. Appears now that the tube is in correct position and patient appears to be feeling somewhat better without any acute abdominal pain at rest. Will restart feedings. Patient is fairly stable from a GI standpoint and we will sign off at this point 07/05/2018 recheck patient today who appears to be feeling well without nausea vomiting or abdominal pain. GJ tube feedings have been restarted for 24 hours and are now at goal rate at 45 cc an hour Nepro 1.8 was the recommendation per dietary. Noted leukocytosis , 25,000 unspecified reason at this point. Otherwise from a GI standpoint patient appears to be stable. Will follow as needed. Plan: Diet regular soft foods, and supplement with Nepro 1.8 at 45 cc an hour goal rate Creon, PPI Monitor WBC count as well as CBC Supportive care Patient was seen per Dr. Ortega and myself, note was written on his behalf <Jordana Sebastian M - Last Filed: 07/05/18 15:26> - Attending Attestation Patient seen and examined Agree with above Continue with current supportive care Monitor labs As for her leukocytosis this is of unclear significance and I will defer to attending physician for further evaluation Regarding her pancreatitis this seems to be at bay at this point with no acute exacerbation patient tolerating oral intake and tolerating tube feeds with minimal pain I do agree with dietary recommendations to change feeding so as to improve her nutritional state which is at borderline at this point I would still minimize pain medication and rely mostly on none narcotic type pain meds if possible Patient to follow-up with GI post discharge Not much to add from a GI perspective we will sign off <Gregg Ortega - Last Filed: 07/06/18 00:29>
--- NOTE | 2018-07-05 18:00 | P.PNNP ---
Subjective Interval history: Tolerating Nepro tube feed Physical Exam Vital signs: Vital Signs 07/04/18 18:00 07/04/18 19:19 07/04/18 23:30 Temperature 98.1 F 97.9 F Pulse Rate 91 H 94 H Respiratory Rate 16 18 18 Blood Pressure 137/69 152/73 H Pulse Oximetry 95 97 07/05/18 04:12 07/05/18 06:30 07/05/18 08:00 Temperature 98.2 F 97.8 F Pulse Rate 92 H 86 Respiratory Rate 18 18 16 Blood Pressure 161/88 H 159/81 H Pulse Oximetry 98 97 07/05/18 08:26 07/05/18 12:00 07/05/18 16:00 Temperature 97.4 F L 97.9 F Pulse Rate 89 86 Respiratory Rate 18 16 16 Blood Pressure 136/70 165/84 H Pulse Oximetry 96 98 Intake & Output 07/04/18 07/05/18 07/05/18 18:59 06:59 18:59 Intake Total 2150 / 2150 1577 / 1577 1315 / 1315 Output Total 8 / 8 Balance 2150 / 2150 1577 / 1577 1307 / 1307 Weight 68 kg Intake: IV 2150 / 2150 100 / 100 1075 / 1075 Sodium Bicarbonate 8.4% Inj 75 2150 / 2150 1075 / 1075 MEQ In 1/2 Normal Saline Inj 1, 000 ML @ 100 mls/hr IV.CONT . [id number] [facility] Rx#:[id number] KCl 20 mEq Premix Inj 20 meq In 100 / 100 100 ml @ 50 mls/hr IV.SIG ONCE ONE Rx#:[id number] Oral 480 / 480 240 / 240 Tube Feeding 597 / 597 Water Bolus Amount 400 / 400 Output: Urine 4 / 4 Stool 4 / 4 Other: # Voids 5 # Incontinent Voids 3 Date of Last Bowel Movement 07/04/18 07/05/18 # Bowel Movements 1 # Incontinent Bowel Movements 4 - Constitutional no acute distress - Routine HEENT Exam Eye: Present: EOMI - Routine Neck Exam Present: supple - Routine Respiratory Exam Present: CTA bilaterally - Routine Cardiovascular Exam Present: RRR - Routine Abdominal Exam Present: soft - Routine Extremities Exam Present: pulses intact Assessment and Plan - Assessment (1) Acute UTI Code(s): N39.0 - Urinary tract infection, site not specified Status: Acute (2) Abdominal pain Code(s): R10.9 - Unspecified abdominal pain Status: Acute (3) Acute on chronic kidney failure Code(s): N17.9 - Acute kidney failure, unspecified; N18.9 - Chronic kidney disease, unspecified Status: Acute Qualifiers: Acute renal failure type: unspecified Chronic kidney disease stage: unspecified stage Qualified Code(s): N17.9 - Acute kidney failure, unspecified ; N18.9 - Chronic kidney disease, unspecified (4) Idiopathic pancreatitis Code(s): K85.00 - Idiopathic acute pancreatitis without necrosis or infection Status: Chronic Qualifiers: - Plan Continue with the hydration and IV antibiotics continue monitor BMP Creatinine slowly improvin.7 ->4.5 -> 4.4 -->3.9->3.8 On IVFs with 1/2 NS + 75meq NaHCO3. W 100cc/hour. Patient voiding Avoid nephrotoxins Monitor intake and output Follow BMP Patient is more alert and responding to fluids and tolerating tube feeds
[2018-07-06] MEDS: MethylPREDNISolone Sod Succinate Inj 125 MG/2 ML Vial IV.PUSH SCH ×2 (01:42→06:19)
[2018-07-06] MEDS: Sodium Bicarbonate 8.4% Inj 75 MEQ in Sodium Chloride 0.45 % Inj 1,000 ML IV.CONT SCH (03:42)
[2018-07-06 04:56] LABS: Hematocrit 33.8 % (35.0-46.0); Mean Corpuscular HGB Conc 32.7 % (32.0-36.0); Mean Corpuscular Hemoglobin 28.6 pg (27.0-34.0); Mean Corpuscular Volume 87.5 fL (80.0-100.0); Mean Platelet Volume 7.8 fL (7.0-11.0); Platelet Count 443 th/mm3 (150-450); Red Blood Count 3.86 mil/mm3 (4.00-5.30); Red Cell Distribution Width 16.5 % (11.6-17.2); White Blood Count 29.9 th/mm3 (4.0-11.0)
[2018-07-06 05:19] LABS: Albumin 1.8 g/dL (3.4-5.0); Carbon Dioxide 29.5 meq/L (21.0-32.0); Magnesium 1.5 mg/dL (1.5-2.5); Phosphorus 2.6 mg/dL (2.5-4.9); Total Protein 5.4 g/dL (6.4-8.2)
--- NOTE | 2018-07-06 09:29 | P.PNIM ---
Subjective Interval history: no distress. eating. watching tv. Physical Exam Vital signs: Vital Signs 07/05/18 12:00 07/05/18 16:00 07/05/18 20:00 Temperature 97.4 F L 97.9 F 99 F Pulse Rate 89 86 91 H Respiratory Rate 16 16 18 Blood Pressure 136/70 165/84 H 152/76 H Pulse Oximetry 96 98 94 L 07/06/18 00:00 07/06/18 04:00 07/06/18 08:00 Temperature 98.0 F 98.6 F 97.5 F L Pulse Rate 84 91 H 80 Respiratory Rate 18 18 18 Blood Pressure 178/99 H 164/83 H 167/78 H Pulse Oximetry 95 94 L 96 Intake & Output 07/05/18 07/06/18 07/06/18 18:59 06:59 18:59 Intake Total 1315 / 1315 4520 / 4520 Output Total 8 600 / 600 Balance 1307 / 1307 3920 / 3920 Intake: IV 1075 / 1075 1999 / 1999 Sodium Bicarbonate 8.4% Inj 75 1075 / 1075 2000 / 2000 MEQ In 1/2 Normal Saline Inj 1, 000 ML @ 100 mls/hr IV.CONT . [id number] [facility] Rx#:[id number] Oral 240 / 240 280 / 280 Tube Feeding 540 / 540 Tube Irrigant 600 / 600 Other 1100 / 1100 Output: Urine 4 / 4 600 / 600 Stool 4 / 4 Other: Other Intake Source Saline Solution # Voids 2 # Incontinent Voids 2 Date of Last Bowel Movement 07/04/18 07/05/18 # Bowel Movements 1 # Incontinent Bowel Movements 1 heart reg lung cta abd s/nt ext no edema Results - Labs CBC & Chem 7: 07/06/18 04:40 07/06/18 04:40 Laboratory Results - last 24 hr 07/05/18 07/05/18 07/06/18 09:41 09:41 04:40 WBC 25.0 H RBC 3.99 L Hgb 11.9 Hct 36.6 MCV 91.7 D MCH 29.9 MCHC 32.7 RDW 17.1 Plt Count 441 MPV 8.0 Sodium 136 141 Potassium 3.9 3.0 L D Chloride 103 100 Carbon Dioxide 21.7 29.5 Anion Gap 11 12 BUN 79 H 86 H Creatinine 3.85 H 3.60 H Estimated GFR 14 L 15 L Random Glucose 231 H 254 H Calcium 7.3 L* 7.0 L* Prot Corrected Calcium 8.1 L 7.9 L Phosphorus 3.2 2.6 Magnesium 1.7 1.5 Total Bilirubin 0.2 0.1 L AST 14 L 11 L ALT 16 15 Alkaline Phosphatase 100 98 Total Protein 5.6 L 5.4 L Albumin 1.6 L 1.8 L Lipase 202 07/06/18 04:40 WBC 29.9 H RBC 3.86 L Hgb 11.0 L Hct 33.8 L MCV 87.5 D MCH 28.6 MCHC 32.7 RDW 16.5 Plt Count 443 MPV 7.8 Sodium Potassium Chloride Carbon Dioxide Anion Gap BUN Creatinine Estimated GFR Random Glucose Calcium Prot Corrected Calcium Phosphorus Magnesium Total Bilirubin AST ALT Alkaline Phosphatase Total Protein Albumin Lipase Microbiology 07/01/18 13:46 Blood - Peripheral Aerobic Blood Culture - Preliminary No growth in 4 days 07/01/18 13:46 Blood - Peripheral Anaerobic Blood Culture - Preliminary No growth in 4 days 07/01/18 12:18 Blood - Peripheral Aerobic Blood Culture - Preliminary No growth in 4 days 07/01/18 12:18 Blood - Peripheral Anaerobic Blood Culture - Preliminary No growth in 4 days - Procedures GI Procedure 06/30/18 with IR An ERCP was performed by the ordering physician. The images demonstrate a metallic stent in the mid and distal common bile duct. The stent is traversed with a guidewire which extends into the intrahepatic bile ducts. The final image demonstrates a plastic stent within the metallic stent. The intrahepatic bile ducts do not appear to be significantly dilated Assessment and Plan - Assessment (1) Idiopathic pancreatitis Code(s): K85.00 - Idiopathic acute pancreatitis without necrosis or infection Status: Chronic Plan: Idiopathic pancreatitis - Ms. Larsen is an 82 y/o AAF with recurrent idiopathic pancreatitis. She has been hospitalized numerous times for issues with pain control related to recurrent pancreatitis. Her last admission was from 03/03/18 to 03/28/18 and she had biliary obstruction at that time. - During that admission she underwent evaluation with ERCP (03/03/18) which noted multiple stones, migrated metal stent up into CBD, could not put plastic stent due to "kink" in current stent according to GI notes. She required PTC placement on 03/04 by IR which noted severe obstruction of the proximal common bile duct stent with very challenging recanalization requiring multiple wires and catheters. biliary stent placement. She had to have a repeat ERCP (03/07/18) and had to have the metal stent cleared of debris and they were able to confirm complete clearance of the stent with good emptying through the stent. She had a percutaneous cholangiogram on 03/09/18 where the external portion of biliary drain was removed and the report showed some small hyperplasia within the distal aspect of the biliary stent but there is a patent channel down to the small bowel. -s/p ercp 05/23 with balloon sweep of stone fragments/debris from metal stent and placement of new stent - GJ tube exchange 710 with IR -mesenteric angio with IR 05/24. patent vessels. - Pt presented back to the ED at [facility] [place] on 06/29/18 with continued abdominal pain that is similar to her previous pancreatitis pain. - Her labs in the ED revealed WBC count 30.1, Cr 5.57 /BUN 73, Lipase 234, TBili 0.3, AST 15, ALT 11, AlkPhos 139. Abdomen/Pelvis CT 06/29/18 reveals: 1. Biliary stent with interval Silastic stent. Air in the left hepatic ducts. 2. I don't see an etiology for the patient's right-sided abdominal pain. Lack of intravenous and oral contrast makes detection of subtle abnormalities difficult 3. Inflammatory processes such as pyonephritis cannot be excluded. GI Procedure 06/30/18 with IR An ERCP was performed by the ordering physician. The images demonstrate a metallic stent in the mid and distal common bile duct. The stent is traversed with a guidewire which extends into the intrahepatic bile ducts. The final image demonstrates a plastic stent within the metallic stent. The intrahepatic bile ducts do not appear to be significantly dilated - Pain control with Morphine and Rupert PRN - zofran as need for N/V - Azithromycin and cefepime, stopped. No indication of infection. No fever. No cough, no dysuria -- blood cultures (07/01) --> NGTD - urine cx (06/29) --> no growth Pt gj tube functioning. tube feed to goal. guido po intake also. discussed with RN...use prn po pain meds and only iv if necessary. ivf per renal and monitor ramón/ckd. PT reevaluation and CM for dispo...snf vs hhc /pt. Acute on chronic kidney failure - Pt with baseline stage 3 CKD, pt follows with Dr. Melara - Her labs at admission noted acute worsening BUN 73 and creatinine 5.57 estimated GFR 9 - - continue 1/2 NS at 100ml/H with NAbicarb - Nephrology also following - Avoid nephrotoxic agents UTI - see above HTN (hypertension) - Cont. home meds - Monitor GERD (gastroesophageal reflux disease) - PPI Anemia - Pt with an acute decrease in her chronic anemia - on admission patient's Hgb - obtain iron indices - transfuse 2 units. DVT prophylaxis with SCDs (2) History of biliary stent insertion Code(s): Z98.890 - Other specified postprocedural states Status: Acute Plan: (1) Idiopathic pancreatitis - Ms. Larsen is an 82 y/o AAF with recurrent idiopathic pancreatitis. She has been hospitalized numerous times for issues with pain control related to recurrent pancreatitis. Her last admission was from 03/03/18 to 03/28/18 and she had biliary obstruction at that time. - During that admission she underwent evaluation with ERCP (03/03/18) which noted multiple stones, migrated metal stent up into CBD, could not put plastic stent due to "kink" in current stent according to GI notes. She required PTC placement on 03/04 by IR which noted severe obstruction of the proximal common bile duct stent with very challenging recanalization requiring multiple wires and catheters. biliary stent placement. She had to have a repeat ERCP (03/07/18) and had to have the metal stent cleared of debris and they were able to confirm complete clearance of the stent with good emptying through the stent. She had a percutaneous cholangiogram on 03/09/18 where the external portion of biliary drain was removed and the report showed some small hyperplasia within the distal aspect of the biliary stent but there is a patent channel down to the small bowel. -s/p ercp 05/23 with balloon sweep of stone fragments/debris from metal stent and placement of new stent - GJ tube exchange 710 with IR -mesenteric angio with IR 05/24. patent vessels. - Pt presented back to the ED at [facility] [place] on 06/29/18 with continued abdominal pain that is similar to her previous pancreatitis pain. - Her labs in the ED revealed WBC count , Cr /BUN , Lipase . TBili , AST , ALT , AlkPhos . Abdomen/Pelvis CT 06/29/18 reveals: 1. Biliary stent with interval Silastic stent. Air in the left hepatic ducts. 2. I don't see an etiology for the patient's right-sided abdominal pain. Lack of intravenous and oral contrast makes detection of subtle abnormalities difficult 3. . Inflammatory processes such as pyonephritis cannot be excluded. GI Procedure 06/30/18 with IR An ERCP was performed by the ordering physician. The images demonstrate a metallic stent in the mid and distal common bile duct. The stent is traversed with a guidewire which extends into the intrahepatic bile ducts. The final image demonstrates a plastic stent within the metallic stent. The intrahepatic bile ducts do not appear to be significantly dilated - Pain control PRN with Rupert PRN - zofran as need for N/V - obtain repeat CBC, CMP, Mag, lipase in AM - will try to resume Nepro TF at 15ml/hour and slowly titrate back to 45ml/hour - Supportive care - DVT prophylaxis with SCDs - Dr. Eddy will discuss with Pt/daughter, Caitlyn, (by phone) later today (2) Acute on chronic kidney failure - Pt with baseline stage 3 CKD, pt follows with Dr. Melara - Her labs at admission with a noted acute worsening of her baseline CKD. - consultation placed to Nephrology - Avoid nephrotoxic agents (3) HTN (hypertension) - Cont. home meds - Monitor (4) GERD (gastroesophageal reflux disease) - PPI (5) Anemia - Pt with an acute decrease in her chronic anemia - on admission patient's Hgb DVT prophylaxis with SCDs (3) Acute on chronic kidney failure Code(s): N17.9 - Acute kidney failure, unspecified; N18.9 - Chronic kidney disease, unspecified Status: Acute (4) Gastroparesis Code(s): K31.84 - Gastroparesis Status: Acute (1) Idiopathic pancreatitis Qualifiers: (3) Acute on chronic kidney failure Qualifiers: Acute renal failure type: unspecified Chronic kidney disease stage: unspecified stage Qualified Code(s): N17.9 - Acute kidney failure, unspecified ; N18.9 - Chronic kidney disease, unspecified
[2018-07-06] MEDS: Simethicone 125 MG Chew Tablet PO SCH ×3 (10:09→17:23)
[2018-07-06] MEDS: Metoprolol Tartrate 25 MG Tablet PO SCH ×2 (11:05→22:09)
[2018-07-06] MEDS: amLODIPine 5 MG Tablet PO SCH (11:05)
[2018-07-06] MEDS: Sucralfate 1 GM Tablet PO SCH ×3 (11:05→17:22)
[2018-07-06] MEDS: Lipase/Protease/Amylase 12/38/60 DR Capsule PO SCH ×3 (11:06→17:30)
[2018-07-06] MEDS: predniSONE 20 MG Tablet PO SCH (11:06)
[2018-07-06] MEDS: Senna/Docusate Sodium 8.6/50 MG Tablet PO SCH ×2 (11:07→22:10)
--- NOTE | 2018-07-06 13:53 | P.PNNP ---
Subjective Interval history: Patient feels better Physical Exam Vital signs: Vital Signs 07/05/18 16:00 07/05/18 20:00 07/06/18 00:00 Temperature 97.9 F 99 F 98.0 F Pulse Rate 86 91 H 84 Respiratory Rate 18 Blood Pressure 165/84 H 152/76 H 178/99 H Pulse Oximetry 98 94 L 95 07/06/18 04:00 07/06/18 08:00 07/06/18 12:00 Temperature 98.6 F 97.5 F L 97.8 F Pulse Rate 91 H 80 78 Respiratory Rate 18 Blood Pressure 164/83 H 167/78 H 175/97 H Pulse Oximetry 94 L 96 96 Intake & Output 07/05/18 07/06/18 07/06/18 18:59 06:59 18:59 Intake Total 1315 / 1315 4520 / 4520 Output Total 600 / 600 Balance 1307 / 1307 3920 / 3920 Intake: IV 1075 / 1075 1999 / 1999 Sodium Bicarbonate 8.4% Inj 75 1075 / 1075 1999 / 1999 MEQ In 1/2 Normal Saline Inj 1, 000 ML @ 100 mls/hr IV.CONT . [id number] [facility] Rx#:[id number] Oral 240 / 240 280 / 280 Tube Feeding 540 / 540 Tube Irrigant 600 / 600 Other 1100 / 1100 Output: Urine 4 / 4 600 / 600 Stool 4 / 4 Other: Other Intake Source Saline Solution # Voids 2 # Incontinent Voids 2 Date of Last Bowel Movement 07/04/18 07/05/18 # Bowel Movements 1 # Incontinent Bowel Movements 1 - Constitutional no acute distress - Routine HEENT Exam Head: Present: normocephalic - Routine Neck Exam Present: supple - Routine Respiratory Exam Present: CTA bilaterally - Routine Cardiovascular Exam Present: RRR - Routine Abdominal Exam Present: soft - Routine Extremities Exam Present: full ROM Assessment and Plan - Assessment (1) Acute UTI Code(s): N39.0 - Urinary tract infection, site not specified Status: Acute (2) Abdominal pain Code(s): R10.9 - Unspecified abdominal pain Status: Acute (3) Acute on chronic kidney failure Code(s): N17.9 - Acute kidney failure, unspecified; N18.9 - Chronic kidney disease, unspecified Status: Acute Qualifiers: Acute renal failure type: unspecified Chronic kidney disease stage: unspecified stage Qualified Code(s): N17.9 - Acute kidney failure, unspecified ; N18.9 - Chronic kidney disease, unspecified (4) Idiopathic pancreatitis Code(s): K85.00 - Idiopathic acute pancreatitis without necrosis or infection Status: Chronic Qualifiers: - Plan Continue with the hydration and IV antibiotics continue monitor BMP Creatinine slowly improvin.7 ->4.5 -> 4.4 -->3.9->3.8-->3.6 On IVFs change it to half-normal saline with 25 mEq of sodium bicarbonate W 100cc/hour. Patient voiding Avoid nephrotoxins Monitor intake and output Follow BMP Patient is more alert and responding to fluids and tolerating tube feeds
[2018-07-06] MEDS: SODIUM BICARBONATE IV.CONT SCH (16:00)
[2018-07-06] MEDS: SODIUM CHLORIDE 0.45% IV.CONT SCH (16:00)
[2018-07-07] MEDS: SODIUM BICARBONATE IV.CONT SCH ×2 (03:22→16:00)
[2018-07-07] MEDS: SODIUM CHLORIDE 0.45% IV.CONT SCH ×2 (03:22→16:00)
[2018-07-07] MEDS: Simethicone 125 MG Chew Tablet PO SCH ×3 (08:00→18:54)
[2018-07-07] MEDS: amLODIPine 5 MG Tablet PO SCH (09:48)
[2018-07-07] MEDS: Metoprolol Tartrate 25 MG Tablet PO SCH ×2 (09:48→22:27)
[2018-07-07] MEDS: predniSONE 20 MG Tablet PO SCH (09:48)
[2018-07-07] MEDS: Senna/Docusate Sodium 8.6/50 MG Tablet PO SCH ×2 (09:48→22:28)
[2018-07-07] MEDS: Lipase/Protease/Amylase 12/38/60 DR Capsule PO SCH ×3 (09:48→18:48)
[2018-07-07] MEDS: Sucralfate 1 GM Tablet PO SCH ×3 (09:48→18:56)
[2018-07-07 14:40] LABS: Hematocrit 35.9 % (35.0-46.0); Hemoglobin 11.9 gm/dL (11.6-15.3); Mean Corpuscular Hemoglobin 29.2 pg (27.0-34.0); Mean Corpuscular Volume 88.3 fL (80.0-100.0); Mean Platelet Volume 7.9 fL (7.0-11.0); Platelet Count 412 th/mm3 (150-450); Red Blood Count 4.07 mil/mm3 (4.00-5.30); Red Cell Distribution Width 16.8 % (11.6-17.2); White Blood Count 31.2 th/mm3 (4.0-11.0)
--- NOTE | 2018-07-07 14:41 | P.PNIM ---
Subjective Interval history: pt c/o persistent weakness and inability to ambulate Physical Exam Vital signs: Vital Signs 07/06/18 14:50 07/06/18 16:00 07/06/18 18:40 Temperature 98 F Pulse Rate 90 Respiratory Rate 16 18 16 Blood Pressure 169/70 H Pulse Oximetry 96 07/06/18 21:30 07/07/18 00:40 07/07/18 06:15 Temperature 97.3 F L 98 F 97.3 F L Pulse Rate 88 80 88 Respiratory Rate 18 19 20 Blood Pressure 150/79 H 145/65 H 150/65 H Pulse Oximetry 94 L 95 95 07/07/18 08:00 07/07/18 12:00 Temperature 97.7 F 98.2 F Pulse Rate 102 H 79 Respiratory Rate 16 16 Blood Pressure 172/90 H 171/87 H Pulse Oximetry 96 95 Intake & Output 07/06/18 07/07/18 07/07/18 18:59 06:59 18:59 Intake Total 1425 / 1425 135 / 135 Output Total 600 / 600 Balance 825 / 825 135 / 135 Weight 68 kg Intake: IV 1025 / 1025 Sodium Bicarbonate 8.4% Inj 25 1025 / 1025 MEQ In 1/2 Normal Saline Inj 1, 000 ML @ 100 mls/hr IV.CONT . [id number] [facility] Rx#:[id number] Oral 400 / 400 Tube Feeding 135 / 135 Output: Urine 600 / 600 Other: # Incontinent Voids 6 Date of Last Bowel Movement 07/05/18 07/05/18 # Bowel Movements 0 nad heart reg lung cta abd s/nt/gj tube ext no edema Results - Labs CBC & Chem 7: 07/06/18 04:40 07/06/18 04:40 Microbiology 07/01/18 13:46 Blood - Peripheral Aerobic Blood Culture - Final No growth in 5 days 07/01/18 13:46 Blood - Peripheral Anaerobic Blood Culture - Final No growth in 5 days 07/01/18 12:18 Blood - Peripheral Aerobic Blood Culture - Final No growth in 5 days 07/01/18 12:18 Blood - Peripheral Anaerobic Blood Culture - Final No growth in 5 days - Procedures GI Procedure 06/30/18 with IR An ERCP was performed by the ordering physician. The images demonstrate a metallic stent in the mid and distal common bile duct. The stent is traversed with a guidewire which extends into the intrahepatic bile ducts. The final image demonstrates a plastic stent within the metallic stent. The intrahepatic bile ducts do not appear to be significantly dilated Assessment and Plan - Assessment (1) Idiopathic pancreatitis Code(s): K85.00 - Idiopathic acute pancreatitis without necrosis or infection Status: Chronic Plan: Idiopathic pancreatitis - Ms. Larsen is an 82 y/o AAF with recurrent idiopathic pancreatitis. She has been hospitalized numerous times for issues with pain control related to recurrent pancreatitis. Her last admission was from 03/03/18 to 03/28/18 and she had biliary obstruction at that time. - During that admission she underwent evaluation with ERCP (03/03/18) which noted multiple stones, migrated metal stent up into CBD, could not put plastic stent due to "kink" in current stent according to GI notes. She required PTC placement on 03/04 by IR which noted severe obstruction of the proximal common bile duct stent with very challenging recanalization requiring multiple wires and catheters. biliary stent placement. She had to have a repeat ERCP (03/07/18) and had to have the metal stent cleared of debris and they were able to confirm complete clearance of the stent with good emptying through the stent. She had a percutaneous cholangiogram on 03/09/18 where the external portion of biliary drain was removed and the report showed some small hyperplasia within the distal aspect of the biliary stent but there is a patent channel down to the small bowel. -s/p ercp 05/23 with balloon sweep of stone fragments/debris from metal stent and placement of new stent - GJ tube exchange 710 with IR -mesenteric angio with IR 05/24. patent vessels. - Pt [place] [facility] [place] with continued abdominal pain that is similar to her previous pancreatitis pain. - Her labs in the ED revealed WBC count 30.1, Cr 5.57 /BUN 73, Lipase 234, TBili 0.3, AST 15, ALT 11, AlkPhos 139. Abdomen/Pelvis CT 06/29/18 reveals: 1. Biliary stent with interval Silastic stent. Air in the left hepatic ducts. 2. I don't see an etiology for the patient's right-sided abdominal pain. Lack of intravenous and oral contrast makes detection of subtle abnormalities difficult 3. Inflammatory processes such as pyonephritis cannot be excluded. GI Procedure 06/30/18 with IR An ERCP was performed by the ordering physician. The images demonstrate a metallic stent in the mid and distal common bile duct. The stent is traversed with a guidewire which extends into the intrahepatic bile ducts. The final image demonstrates a plastic stent within the metallic stent. The intrahepatic bile ducts do not appear to be significantly dilated - Pain control with Morphine and Cavour PRN - zofran as need for N/V - Azithromycin and cefepime, stopped. No indication of infection. No fever. No cough, no dysuria -- blood cultures (07/01) --> NGTD - urine cx (06/29) --> no growth Pt gj tube functioning. tube feed to goal. guido po intake also. discussed with RN...use prn po pain meds and only iv if necessary. ivf per renal and monitor ramón/ckd. PT reevaluation and 7 days per week. and CM for dispo...family refuses snf and not ready to take her home. Acute on chronic kidney failure - Pt with baseline stage 3 CKD, pt follows with Dr. Melara - Her labs at admission noted acute worsening BUN 73 and creatinine 5.57 estimated GFR 9 - - continue 1/2 NS at 100ml/H with NAbicarb - Nephrology also following - Avoid nephrotoxic agents UTI - see above HTN (hypertension) - Cont. home meds - Monitor GERD (gastroesophageal reflux disease) - PPI Anemia - Pt with an acute decrease in her chronic anemia - on admission patient's Hgb - obtain iron indices - transfused 2 units. DVT prophylaxis with SCDs (2) History of biliary stent insertion Code(s): Z98.890 - Other specified postprocedural states Status: Acute Plan: (1) Idiopathic pancreatitis - Ms. Larsen is an 82 y/o AAF with recurrent idiopathic pancreatitis. She has been hospitalized numerous times for issues with pain control related to recurrent pancreatitis. Her last admission was from 03/03/18 to 03/28/18 and she had biliary obstruction at that time. - During that admission she underwent evaluation with ERCP (03/03/18) which noted multiple stones, migrated metal stent up into CBD, could not put plastic stent due to "kink" in current stent according to GI notes. She required PTC placement on 03/04 by IR which noted severe obstruction of the proximal common bile duct stent with very challenging recanalization requiring multiple wires and catheters. biliary stent placement. She had to have a repeat ERCP (03/07/18) and had to have the metal stent cleared of debris and they were able to confirm complete clearance of the stent with good emptying through the stent. She had a percutaneous cholangiogram on 03/09/18 where the external portion of biliary drain was removed and the report showed some small hyperplasia within the distal aspect of the biliary stent but there is a patent channel down to the small bowel. -s/p ercp 05/23 with balloon sweep of stone fragments/debris from metal stent and placement of new stent - GJ tube exchange 710 with IR -mesenteric angio with IR 05/24. patent vessels. - Pt presented back to the ED [place] [facility] [place] with continued abdominal pain that is similar to her previous pancreatitis pain. - Her labs in the ED revealed WBC count , Cr /BUN , Lipase . TBili , AST , ALT , AlkPhos . Abdomen/Pelvis CT 06/29/18 reveals: 1. Biliary stent with interval Silastic stent. Air in the left hepatic ducts. 2. I don't see an etiology for the patient's right-sided abdominal pain. Lack of intravenous and oral contrast makes detection of subtle abnormalities difficult 3. . Inflammatory processes such as pyonephritis cannot be excluded. GI Procedure 06/30/18 with IR An ERCP was performed by the ordering physician. The images demonstrate a metallic stent in the mid and distal common bile duct. The stent is traversed with a guidewire which extends into the intrahepatic bile ducts. The final image demonstrates a plastic stent within the metallic stent. The intrahepatic bile ducts do not appear to be significantly dilated - Pain control PRN with Cavour PRN - zofran as need for N/V - obtain repeat CBC, CMP, Mag, lipase in AM - will try to resume Nepro TF at 15ml/hour and slowly titrate back to 45ml/hour - Supportive care - DVT prophylaxis with SCDs - Dr. Eddy will discuss with Pt/daughter, Caitlyn, (by phone) later today (2) Acute on chronic kidney failure - Pt with baseline stage 3 CKD, pt follows with Dr. Melara - Her labs at admission with a noted acute worsening of her baseline CKD. - consultation placed to Nephrology - Avoid nephrotoxic agents (3) HTN (hypertension) - Cont. home meds - Monitor (4) GERD (gastroesophageal reflux disease) - PPI (5) Anemia - Pt with an acute decrease in her chronic anemia - on admission patient's Hgb DVT prophylaxis with SCDs (3) Acute on chronic kidney failure Code(s): N17.9 - Acute kidney failure, unspecified; N18.9 - Chronic kidney disease, unspecified Status: Acute (4) Gastroparesis Code(s): K31.84 - Gastroparesis Status: Acute (1) Idiopathic pancreatitis Qualifiers: (3) Acute on chronic kidney failure Qualifiers: Acute renal failure type: unspecified Chronic kidney disease stage: unspecified stage Qualified Code(s): N17.9 - Acute kidney failure, unspecified ; N18.9 - Chronic kidney disease, unspecified
[2018-07-07 14:54] LABS: Albumin 2.1 g/dL (3.4-5.0); Carbon Dioxide 33.3 meq/L (21.0-32.0); Magnesium 1.6 mg/dL (1.5-2.5); Phosphorus 1.8 mg/dL (2.5-4.9); Potassium 3.4 meq/L (3.5-5.1)
[2018-07-07 14:58] LABS: Total Protein 5.9 g/dL (6.4-8.2)
[2018-07-07] MEDS ORDERED: Potassium Phosphate 500 MG Soluble Tablet PO ONE (15:16)
--- NOTE | 2018-07-07 17:38 | P.PNNP ---
Subjective Interval history: Follow-up same Physical Exam Vital signs: Vital Signs 07/06/18 18:40 07/06/18 21:30 07/07/18 00:40 Temperature 97.3 F L 98 F Pulse Rate 88 80 Respiratory Rate 16 18 19 Blood Pressure 150/79 H 145/65 H Pulse Oximetry 94 L 95 07/07/18 06:15 07/07/18 08:00 07/07/18 12:00 Temperature 97.3 F L 97.7 F 98.2 F Pulse Rate 88 102 H 79 Respiratory Rate 20 16 16 Blood Pressure 150/65 H 172/90 H 171/87 H Pulse Oximetry 95 96 95 07/07/18 16:00 Temperature 98.0 F Pulse Rate 95 H Respiratory Rate 16 Blood Pressure 146/83 H Pulse Oximetry 96 Intake & Output 07/06/18 07/07/18 07/07/18 18:59 06:59 18:59 Intake Total 1425 / 1425 135 / 135 Output Total 600 / 600 Balance 825 / 825 135 / 135 Weight 68 kg Intake: IV 1025 / 1025 Sodium Bicarbonate 8.4% Inj 25 1025 / 1025 MEQ In 1/2 Normal Saline Inj 1, 000 ML @ 100 mls/hr IV.CONT . [id number] [facility] Rx#:[id number] Oral 400 / 400 Tube Feeding 135 / 135 Output: Urine 600 / 600 Other: # Incontinent Voids 6 Date of Last Bowel Movement 07/05/18 07/05/18 07/05/18 # Bowel Movements 0 - Constitutional no acute distress - Routine HEENT Exam Eye: Present: EOMI - Routine Respiratory Exam Present: CTA bilaterally - Routine Cardiovascular Exam Present: RRR - Routine Abdominal Exam Present: tenderness - Routine Extremities Exam Present: pulses intact Assessment and Plan - Assessment (1) Acute UTI Code(s): N39.0 - Urinary tract infection, site not specified Status: Acute (2) Abdominal pain Code(s): R10.9 - Unspecified abdominal pain Status: Acute (3) Acute on chronic kidney failure Code(s): N17.9 - Acute kidney failure, unspecified; N18.9 - Chronic kidney disease, unspecified Status: Acute Qualifiers: Acute renal failure type: unspecified Chronic kidney disease stage: unspecified stage Qualified Code(s): N17.9 - Acute kidney failure, unspecified ; N18.9 - Chronic kidney disease, unspecified (4) Idiopathic pancreatitis Code(s): K85.00 - Idiopathic acute pancreatitis without necrosis or infection Status: Chronic Qualifiers: - Plan Continue with the hydration and IV antibiotics continue monitor BMP Creatinine slowly improvin.7 ->4.5 -> 4.4 -->3.9->3.8-->3.6-->2.7 On IVFs half-normal saline with 25 mEq of sodium bicarbonate 100cc/hour. Change IV fluid to half normal saline at 84 cc an hour Patient voiding Avoid nephrotoxins Monitor intake and output Follow BMP Patient is more alert and responding to fluids and tolerating tube feeds
[2018-07-07] MEDS: Sodium Chloride 0.45 % Inj 1,000 ML IV.CONT SCH (18:54)
[2018-07-07] MEDS: Temazepam 15 MG Capsule PO PRN (22:28)
[2018-07-08] MEDS: Sodium Chloride 0.45 % Inj 1,000 ML IV.CONT SCH ×2 (06:03→18:22)
[2018-07-08] MEDS: Simethicone 125 MG Chew Tablet PO SCH ×3 (08:00→18:22)
[2018-07-08 08:55] LABS: Calcium 7.1 mg/dL (8.5-10.1); Carbon Dioxide 34.5 meq/L (21.0-32.0); Potassium 3.2 meq/L (3.5-5.1)
[2018-07-08] MEDS: Sucralfate 1 GM Tablet PO SCH ×3 (09:00→18:23)
[2018-07-08] MEDS: Metoprolol Tartrate 25 MG Tablet PO SCH ×2 (09:00→22:33)
[2018-07-08] MEDS: amLODIPine 5 MG Tablet PO SCH (09:00)
[2018-07-08] MEDS: Senna/Docusate Sodium 8.6/50 MG Tablet PO SCH ×2 (09:00→22:33)
[2018-07-08] MEDS: Lipase/Protease/Amylase 12/38/60 DR Capsule PO SCH ×3 (09:00→18:24)
[2018-07-08 09:22] LABS: Total Protein 5.7 g/dL (6.4-8.2)
--- NOTE | 2018-07-08 10:30 | P.PNIM ---
Subjective Interval history: lying in bed. no distess. understands my update Physical Exam Vital signs: Vital Signs 07/07/18 12:00 07/07/18 16:00 07/07/18 19:52 Temperature 98.2 F 98.0 F 98.3 F Pulse Rate 79 95 H 97 H Respiratory Rate 16 16 16 Blood Pressure 171/87 H 146/83 H 160/81 H Pulse Oximetry 95 96 96 07/08/18 00:00 07/08/18 04:00 07/08/18 08:00 Temperature 98.6 F 98.1 F 97.8 F Pulse Rate 84 83 90 Respiratory Rate 18 18 13 Blood Pressure 158/93 H 163/79 H 170/97 H Pulse Oximetry 98 95 96 Intake & Output 07/07/18 07/08/18 07/08/18 18:59 06:59 18:59 Intake Total 1075 / 1075 2100 / 2100 Output Total 1000 / 1000 Balance 1071 / 1071 1100 / 1100 Intake: IV 2100 / 2100 Sodium Bicarbonate 8.4% Inj 25 1025 / 1025 MEQ In 1/2 Normal Saline Inj 1, 000 ML @ 100 mls/hr IV.CONT . [id number] [facility] Rx#:[id number] Tube Feeding 675 / 675 Water Bolus Amount 400 / 400 Output: Urine 1000 / 1000 Stool / Other: # Incontinent Voids 1 Date of Last Bowel Movement 07/05/18 07/06/18 # Bowel Movements 0 # Incontinent Bowel Movements 1 heart reg lung cta abd s/nt. gj tube ext no edema Results - Labs CBC & Chem 7: 07/07/18 13:23 07/08/18 07:08 Laboratory Results - last 24 hr 07/03/18 07/07/18 07/07/18 17:36 13:23 13:23 WBC 31.2 H RBC 4.07 Hgb 11.9 Hct 35.9 MCV 88.3 MCH 29.2 MCHC 33.0 RDW 16.8 Plt Count 412 MPV 7.9 Sodium 138 Potassium 3.4 L Chloride 96 L Carbon Dioxide 33.3 H Anion Gap 9 BUN 72 H Creatinine 2.87 H Estimated GFR 19 L Random Glucose 131 H D Calcium 7.0 L* Prot Corrected Calcium 7.6 L Phosphorus 1.8 L Magnesium 1.6 Total Bilirubin 0.3 AST 16 ALT 20 Alkaline Phosphatase 82 Total Protein 5.9 L Albumin 2.1 L Vitamin A 15 L Alpha-Tocopherol 3.5 L B- and G-Tocopherol Less than 1.0 07/08/18 07:08 WBC RBC Hgb Hct MCV MCH MCHC RDW Plt Count MPV Sodium 141 Potassium 3.2 L Chloride 96 L Carbon Dioxide 34.5 H Anion Gap 11 BUN 68 H Creatinine 2.67 H Estimated GFR 21 L Random Glucose 86 Calcium 7.1 L* Prot Corrected Calcium 7.8 L Phosphorus Magnesium Total Bilirubin AST ALT Alkaline Phosphatase Total Protein 5.7 L Albumin Vitamin A Alpha-Tocopherol B- and G-Tocopherol - Procedures GI Procedure 06/30/18 with IR An ERCP was performed by the ordering physician. The images demonstrate a metallic stent in the mid and distal common bile duct. The stent is traversed with a guidewire which extends into the intrahepatic bile ducts. The final image demonstrates a plastic stent within the metallic stent. The intrahepatic bile ducts do not appear to be significantly dilated Assessment and Plan - Assessment (1) Idiopathic pancreatitis Code(s): K85.00 - Idiopathic acute pancreatitis without necrosis or infection Status: Chronic Plan: Idiopathic pancreatitis - Ms. Larsen is an 82 y/o AAF with recurrent idiopathic pancreatitis. She has been hospitalized numerous times for issues with pain control related to recurrent pancreatitis. Her last admission was from 03/03/18 to 03/28/18 and she had biliary obstruction at that time. - During that admission she underwent evaluation with ERCP (03/03/18) which noted multiple stones, migrated metal stent up into CBD, could not put plastic stent due to "kink" in current stent according to GI notes. She required PTC placement on 03/04 by IR which noted severe obstruction of the proximal common bile duct stent with very challenging recanalization requiring multiple wires and catheters. biliary stent placement. She had to have a repeat ERCP (03/07/18) and had to have the metal stent cleared of debris and they were able to confirm complete clearance of the stent with good emptying through the stent. She had a percutaneous cholangiogram on 03/09/18 where the external portion of biliary drain was removed and the report showed some small hyperplasia within the distal aspect of the biliary stent but there is a patent channel down to the small bowel. -s/p ercp 05/23 with balloon sweep of stone fragments/debris from metal stent and placement of new stent - GJ tube exchange 710 with IR -mesenteric angio with IR 05/24. patent vessels. - Pt presented back to the ED at [facility] [place] on 06/29/18 with continued abdominal pain that is similar to her previous pancreatitis pain. - Her labs in the ED revealed WBC count 30.1, Cr 5.57 /BUN 73, Lipase 234, TBili 0.3, AST 15, ALT 11, AlkPhos 139. Abdomen/Pelvis CT 06/29/18 reveals: 1. Biliary stent with interval Silastic stent. Air in the left hepatic ducts. 2. I don't see an etiology for the patient's right-sided abdominal pain. Lack of intravenous and oral contrast makes detection of subtle abnormalities difficult 3. Inflammatory processes such as pyonephritis cannot be excluded. GI Procedure 06/30/18 with IR An ERCP was performed by the ordering physician. The images demonstrate a metallic stent in the mid and distal common bile duct. The stent is traversed with a guidewire which extends into the intrahepatic bile ducts. The final image demonstrates a plastic stent within the metallic stent. The intrahepatic bile ducts do not appear to be significantly dilated - Pain control with Morphine and [place] PRN - zofran as need for N/V - Azithromycin and cefepime, stopped. No indication of infection. No fever. No cough, no dysuria -- blood cultures (07/01) --> NGTD - urine cx (06/29) --> no growth Pt gj tube functioning. tube feed to goal. guido po intake also. discussed with RN...use prn po pain meds and only iv if necessary. ivf per renal and monitor ramón/ckd. PT reevaluation and 7 days per week. and CM for dispo...family refuses snf and not ready to take her home. replace kcl. taper steroid off. Acute on chronic kidney failure - Pt with baseline stage 3 CKD, pt follows with Dr. Melara - Her labs at admission noted acute worsening BUN 73 and creatinine 5.57 estimated GFR 9 - - continue 1/2 NS at 100ml/H with NAbicarb - Nephrology also following - Avoid nephrotoxic agents UTI - see above HTN (hypertension) - Cont. home meds - Monitor GERD (gastroesophageal reflux disease) - PPI Anemia - Pt with an acute decrease in her chronic anemia - on admission patient's Hgb - obtain iron indices - transfused 2 units. DVT prophylaxis with SCDs (2) History of biliary stent insertion Code(s): Z98.890 - Other specified postprocedural states Status: Acute Plan: (1) Idiopathic pancreatitis - Ms. Larsen is an 82 y/o AAF with recurrent idiopathic pancreatitis. She has been hospitalized numerous times for issues with pain control related to recurrent pancreatitis. Her last admission was from 03/03/18 to 03/28/18 and she had biliary obstruction at that time. - During that admission she underwent evaluation with ERCP (03/03/18) which noted multiple stones, migrated metal stent up into CBD, could not put plastic stent due to "kink" in current stent according to GI notes. She required PTC placement on 03/04 by IR which noted severe obstruction of the proximal common bile duct stent with very challenging recanalization requiring multiple wires and catheters. biliary stent placement. She had to have a repeat ERCP (03/07/18) and had to have the metal stent cleared of debris and they were able to confirm complete clearance of the stent with good emptying through the stent. She had a percutaneous cholangiogram on 03/09/18 where the external portion of biliary drain was removed and the report showed some small hyperplasia within the distal aspect of the biliary stent but there is a patent channel down to the small bowel. -s/p ercp 05/23 with balloon sweep of stone fragments/debris from metal stent and placement of new stent - GJ tube exchange 710 with IR -mesenteric angio with IR 05/24. patent vessels. - Pt presented back to the ED at [facility] [place] on 06/29/18 with continued abdominal pain that is similar to her previous pancreatitis pain. - Her labs in the ED revealed WBC count , Cr /BUN , Lipase . TBili , AST , ALT , AlkPhos . Abdomen/Pelvis CT 06/29/18 reveals: 1. Biliary stent with interval Silastic stent. Air in the left hepatic ducts. 2. I don't see an etiology for the patient's right-sided abdominal pain. Lack of intravenous and oral contrast makes detection of subtle abnormalities difficult 3. . Inflammatory processes such as pyonephritis cannot be excluded. GI Procedure 06/30/18 with IR An ERCP was performed by the ordering physician. The images demonstrate a metallic stent in the mid and distal common bile duct. The stent is traversed with a guidewire which extends into the intrahepatic bile ducts. The final image demonstrates a plastic stent within the metallic stent. The intrahepatic bile ducts do not appear to be significantly dilated - Pain control PRN with [place] PRN - zofran as need for N/V - obtain repeat CBC, CMP, Mag, lipase in AM - will try to resume Nepro TF at 15ml/hour and slowly titrate back to 45ml/hour - Supportive care - DVT prophylaxis with SCDs - Dr. Eddy will discuss with Pt/daughter, Caitlyn, (by phone) later today (2) Acute on chronic kidney failure - Pt with baseline stage 3 CKD, pt follows with Dr. Melara - Her labs at admission with a noted acute worsening of her baseline CKD. - consultation placed to Nephrology - Avoid nephrotoxic agents (3) HTN (hypertension) - Cont. home meds - Monitor (4) GERD (gastroesophageal reflux disease) - PPI (5) Anemia - Pt with an acute decrease in her chronic anemia - on admission patient's Hgb DVT prophylaxis with SCDs (3) Acute on chronic kidney failure Code(s): N17.9 - Acute kidney failure, unspecified; N18.9 - Chronic kidney disease, unspecified Status: Acute (4) Gastroparesis Code(s): K31.84 - Gastroparesis Status: Acute (1) Idiopathic pancreatitis Qualifiers: (3) Acute on chronic kidney failure Qualifiers: Acute renal failure type: unspecified Chronic kidney disease stage: unspecified stage Qualified Code(s): N17.9 - Acute kidney failure, unspecified ; N18.9 - Chronic kidney disease, unspecified
[2018-07-08] MEDS ORDERED: fentaNYL Citrate Inj 100 MCG/2 ML Ampul ONE (16:50)
[2018-07-08] MEDS ORDERED: Iohexol 350 MG/ML 50 ML Vial (for Rad Diag) G-TUBE ONE (17:32)
--- NOTE | 2018-07-08 17:55 | P.PNNP ---
Subjective Interval history: Patient stated her gastrojejunal tube was changed Physical Exam Vital signs: Vital Signs 07/07/18 19:52 07/08/18 00:00 07/08/18 04:00 Temperature 98.3 F 98.6 F 98.1 F Pulse Rate 97 H 84 83 Respiratory Rate 16 18 18 Blood Pressure 160/81 H 158/93 H 163/79 H Pulse Oximetry 96 98 95 07/08/18 08:00 07/08/18 11:57 Temperature 97.8 F 97.8 F Pulse Rate 90 89 Respiratory Rate 13 14 Blood Pressure 170/97 H 159/84 H Pulse Oximetry 96 Intake & Output 07/07/18 07/08/18 07/08/18 18:59 06:59 18:59 Intake Total 1075 / 1075 2099 / 2100 Output Total 1000 / 1000 Balance 1071 / 1071 1100 / 1100 Intake: IV 2099 / 2099 Sodium Bicarbonate 8.4% Inj 25 1025 / 1025 MEQ In 1/2 Normal Saline Inj 1, 000 ML @ 100 mls/hr IV.CONT . [id number] [facility] Rx#:[id number] Tube Feeding 675 / 675 Water Bolus Amount 400 / 400 Output: Urine 1000 / 1000 Stool Other: # Incontinent Voids 1 Date of Last Bowel Movement 07/05/18 07/06/18 07/06/18 # Bowel Movements 0 # Incontinent Bowel Movements 1 - Constitutional no acute distress - Routine HEENT Exam Eye: Present: EOMI - Routine Neck Exam Present: supple - Routine Respiratory Exam Present: CTA bilaterally - Routine Cardiovascular Exam Present: RRR - Routine Abdominal Exam Present: soft, tenderness - Routine Extremities Exam Present: full ROM Assessment and Plan - Assessment (1) Acute UTI Code(s): N39.0 - Urinary tract infection, site not specified Status: Acute (2) Abdominal pain Code(s): R10.9 - Unspecified abdominal pain Status: Acute (3) Acute on chronic kidney failure Code(s): N17.9 - Acute kidney failure, unspecified; N18.9 - Chronic kidney disease, unspecified Status: Acute Qualifiers: Acute renal failure type: unspecified Chronic kidney disease stage: unspecified stage Qualified Code(s): N17.9 - Acute kidney failure, unspecified ; N18.9 - Chronic kidney disease, unspecified (4) Idiopathic pancreatitis Code(s): K85.00 - Idiopathic acute pancreatitis without necrosis or infection Status: Chronic Qualifiers: - Plan Continue with the hydration and IV antibiotics continue monitor BMP Creatinine slowly improvin.7 ->4.5 -> 4.4 -->3.9->3.8-->3.6-->2.87->2.6 On IVFs half normal saline at 84 cc an hour Replace potassium Patient voiding Avoid nephrotoxins Monitor intake and output Follow BMP Patient is more alert and responding to fluids Gastrojejunal tube change
[2018-07-08] MEDS: predniSONE 20 MG Tablet PO SCH (18:26)
[2018-07-08] MEDS: Potassium Bicarbonate 25 MEQ Effervescent Tablet PO SCH (18:45)
[2018-07-08] MEDS: Temazepam 15 MG Capsule PO PRN (22:33)
[2018-07-09] MEDS: Sodium Chloride 0.45 % Inj 1,000 ML IV.CONT SCH ×2 (06:23→17:05)
[2018-07-09 07:55] LABS: Calcium 6.9 mg/dL (8.5-10.1)
[2018-07-09 08:09] LABS: Total Protein 5.2 g/dL (6.4-8.2)
[2018-07-09 08:42] LABS: Potassium 2.9 meq/L (3.5-5.1)
[2018-07-09] MEDS: Potassium Bicarbonate 25 MEQ Effervescent Tablet PO SCH (09:30)
[2018-07-09] MEDS: Sucralfate 1 GM Tablet PO SCH ×3 (09:30→17:05)
[2018-07-09] MEDS: Lipase/Protease/Amylase 12/38/60 DR Capsule PO SCH ×3 (09:30→17:56)
[2018-07-09] MEDS: Senna/Docusate Sodium 8.6/50 MG Tablet PO SCH ×2 (09:31→20:30)
[2018-07-09] MEDS: amLODIPine 5 MG Tablet PO SCH (09:31)
[2018-07-09] MEDS: predniSONE 10 MG Tablet PO SCH (09:31)
[2018-07-09] MEDS: Simethicone 125 MG Chew Tablet PO SCH ×3 (09:31→17:05)
[2018-07-09] MEDS: Metoprolol Tartrate 25 MG Tablet PO SCH ×2 (09:31→20:31)
--- NOTE | 2018-07-09 10:05 | P.PNIM ---
Subjective Interval history: pt lying in bed. nad. initially not answering my questions. when I mentioned the need for snf if she can't participate with PT then she opened her eyes and said "no I don't want to go to the residential". Physical Exam Vital signs: Vital Signs 07/08/18 11:57 07/08/18 18:26 07/08/18 20:00 Temperature 97.8 F 97.8 F 98.3 F Pulse Rate 89 89 89 Respiratory Rate 14 14 18 Blood Pressure 159/84 H 135/78 141/83 H Pulse Oximetry 95 07/09/18 00:00 07/09/18 04:00 Temperature 98.7 F 98.5 F Pulse Rate 75 83 Respiratory Rate 18 18 Blood Pressure 145/68 H 169/82 H Pulse Oximetry 96 97 Intake & Output 07/08/18 07/09/18 07/09/18 18:59 06:59 18:59 Intake Total 3540 / 3540 1000 / 1000 Output Total 1004 / 1004 600 / 600 Balance 2536 / 2536 400 / 400 Intake: IV 1000 / 1000 1/2 Normal Saline Inj 1,000 ML 1000 / 1000 @ 84 mls/hr IV.CONT .[id number] [facility] Rx#:[id number] Oral 400 / 400 Tube Feeding 540 / 540 Tube Irrigant 600 / 600 Water Bolus Amount 400 / 400 Anesthesia Amount 500 / 500 Other 1100 / 1100 Output: Urine 1000 / 1000 600 / 600 Stool 4 / 4 Other: Other Intake Source Saline Solution # Voids 2 # Incontinent Voids 1 Date of Last Bowel Movement 07/06/18 07/07/18 # Bowel Movements 0 # Incontinent Bowel Movements 1 lying in no distress tf at 15ml/hr currently heart reg lung cta abd gj tube ext no edema Results - Labs CBC & Chem 7: 07/07/18 13:23 07/09/18 05:42 Laboratory Results - last 24 hr 07/08/18 07/09/18 21:04 05:42 Sodium 139 Potassium 2.9 L* Chloride 96 L Carbon Dioxide 35.0 H Anion Gap 8 BUN 64 H Creatinine 2.56 H Estimated GFR 22 L POC Glucose 165 H Random Glucose 111 H Calcium 6.9 L* Prot Corrected Calcium 7.9 L Total Protein 5.2 L - Procedures GI Procedure 06/30/18 with IR An ERCP was performed by the ordering physician. The images demonstrate a metallic stent in the mid and distal common bile duct. The stent is traversed with a guidewire which extends into the intrahepatic bile ducts. The final image demonstrates a plastic stent within the metallic stent. The intrahepatic bile ducts do not appear to be significantly dilated Assessment and Plan - Assessment (1) Idiopathic pancreatitis Code(s): K85.00 - Idiopathic acute pancreatitis without necrosis or infection Status: Chronic Plan: Idiopathic pancreatitis - Ms. Larsen is an 82 y/o AAF with recurrent idiopathic pancreatitis. She has been hospitalized numerous times for issues with pain control related to recurrent pancreatitis. Her last admission was from 03/03/18 to 03/28/18 and she had biliary obstruction at that time. - During that admission she underwent evaluation with ERCP (03/03/18) which noted multiple stones, migrated metal stent up into CBD, could not put plastic stent due to "kink" in current stent according to GI notes. She required PTC placement on 03/04 by IR which noted severe obstruction of the proximal common bile duct stent with very challenging recanalization requiring multiple wires and catheters. biliary stent placement. She had to have a repeat ERCP (03/07/18) and had to have the metal stent cleared of debris and they were able to confirm complete clearance of the stent with good emptying through the stent. She had a percutaneous cholangiogram on 03/09/18 where the external portion of biliary drain was removed and the report showed some small hyperplasia within the distal aspect of the biliary stent but there is a patent channel down to the small bowel. -s/p ercp 05/23 with balloon sweep of stone fragments/debris from metal stent and placement of new stent - GJ tube exchange 710 with IR -mesenteric angio with IR 05/24. patent vessels. - Pt presented back to the ED at [facility] on 06/29/18 with continued abdominal pain that is similar to her previous pancreatitis pain. - Her labs in the ED revealed WBC count 30.1, Cr 5.57 /BUN 73, Lipase 234, TBili 0.3, AST 15, ALT 11, AlkPhos 139. Abdomen/Pelvis CT 06/29/18 reveals: 1. Biliary stent with interval Silastic stent. Air in the left hepatic ducts. 2. I don't see an etiology for the patient's right-sided abdominal pain. Lack of intravenous and oral contrast makes detection of subtle abnormalities difficult 3. Inflammatory processes such as pyonephritis cannot be excluded. GI Procedure 06/30/18 with IR An ERCP was performed by the ordering physician. The images demonstrate a metallic stent in the mid and distal common bile duct. The stent is traversed with a guidewire which extends into the intrahepatic bile ducts. The final image demonstrates a plastic stent within the metallic stent. The intrahepatic bile ducts do not appear to be significantly dilated - Pain control with Morphine and [place] PRN - zofran as need for N/V - Azithromycin and cefepime, stopped. No indication of infection. No fever. No cough, no dysuria -- blood cultures (07/01) --> NGTD - urine cx (06/29) --> no growth Pt gj tube reportedly not functioning again yesterday. tube feeds were on hold....now it seems to be working and tube feeds resumed and are being titrated. still on ivf per renal until cr returns to baseline.. using po pain meds and no iv. pt needs snf but pt/family refuse at this time. asked for daily PT but so far pt not participating much. replace kcl. taper steroid off. Acute on chronic kidney failure - Pt with baseline stage 3 CKD, pt follows with Dr. Melara - Her labs at admission noted acute worsening BUN 73 and creatinine 5.57 estimated GFR 9 - - continue 1/2 NS at 100ml/H with NAbicarb - Nephrology also following - Avoid nephrotoxic agents UTI - see above HTN (hypertension) - Cont. home meds - Monitor GERD (gastroesophageal reflux disease) - PPI Anemia - Pt with an acute decrease in her chronic anemia - on admission patient's Hgb - obtain iron indices - transfused 2 units. DVT prophylaxis with SCDs (2) History of biliary stent insertion Code(s): Z98.890 - Other specified postprocedural states Status: Acute Plan: (1) Idiopathic pancreatitis - Ms. Larsen is an 82 y/o AAF with recurrent idiopathic pancreatitis. She has been hospitalized numerous times for issues with pain control related to recurrent pancreatitis. Her last admission was from 03/03/18 to 03/28/18 and she had biliary obstruction at that time. - During that admission she underwent evaluation with ERCP (03/03/18) which noted multiple stones, migrated metal stent up into CBD, could not put plastic stent due to "kink" in current stent according to GI notes. She required PTC placement on 03/04 by IR which noted severe obstruction of the proximal common bile duct stent with very challenging recanalization requiring multiple wires and catheters. biliary stent placement. She had to have a repeat ERCP (03/07/18) and had to have the metal stent cleared of debris and they were able to confirm complete clearance of the stent with good emptying through the stent. She had a percutaneous cholangiogram on 03/09/18 where the external portion of biliary drain was removed and the report showed some small hyperplasia within the distal aspect of the biliary stent but there is a patent channel down to the small bowel. -s/p ercp 05/23 with balloon sweep of stone fragments/debris from metal stent and placement of new stent - GJ tube exchange 710 with IR -mesenteric angio with IR 05/24. patent vessels. - Pt presented back to the ED at [facility] on 06/29/18 with continued abdominal pain that is similar to her previous pancreatitis pain. - Her labs in the ED revealed WBC count , Cr /BUN , Lipase . TBili , AST , ALT , AlkPhos . Abdomen/Pelvis CT 06/29/18 reveals: 1. Biliary stent with interval Silastic stent. Air in the left hepatic ducts. 2. I don't see an etiology for the patient's right-sided abdominal pain. Lack of intravenous and oral contrast makes detection of subtle abnormalities difficult 3. . Inflammatory processes such as pyonephritis cannot be excluded. GI Procedure 06/30/18 with IR An ERCP was performed by the ordering physician. The images demonstrate a metallic stent in the mid and distal common bile duct. The stent is traversed with a guidewire which extends into the intrahepatic bile ducts. The final image demonstrates a plastic stent within the metallic stent. The intrahepatic bile ducts do not appear to be significantly dilated - Pain control PRN with [place] PRN - zofran as need for N/V - obtain repeat CBC, CMP, Mag, lipase in AM - will try to resume Nepro TF at 15ml/hour and slowly titrate back to 45ml/hour - Supportive care - DVT prophylaxis with SCDs - Dr. Eddy will discuss with Pt/daughter, Caitlyn, (by phone) later today (2) Acute on chronic kidney failure - Pt with baseline stage 3 CKD, pt follows with Dr. Melara - Her labs at admission with a noted acute worsening of her baseline CKD. - consultation placed to Nephrology - Avoid nephrotoxic agents (3) HTN (hypertension) - Cont. home meds - Monitor (4) GERD (gastroesophageal reflux disease) - PPI (5) Anemia - Pt with an acute decrease in her chronic anemia - on admission patient's Hgb DVT prophylaxis with SCDs (3) Acute on chronic kidney failure Code(s): N17.9 - Acute kidney failure, unspecified; N18.9 - Chronic kidney disease, unspecified Status: Acute (4) Gastroparesis Code(s): K31.84 - Gastroparesis Status: Acute (1) Idiopathic pancreatitis Qualifiers: (3) Acute on chronic kidney failure Qualifiers: Acute renal failure type: unspecified Chronic kidney disease stage: unspecified stage Qualified Code(s): N17.9 - Acute kidney failure, unspecified ; N18.9 - Chronic kidney disease, unspecified
--- NOTE | 2018-07-09 14:16 | P.PNNP ---
Subjective Interval history: Patient feels better Physical Exam Vital signs: Vital Signs 07/08/18 18:26 07/08/18 20:00 07/09/18 00:00 Temperature 97.8 F 98.3 F 98.7 F Pulse Rate 89 89 75 Respiratory Rate 14 18 18 Blood Pressure 135/78 141/83 H 145/68 H Pulse Oximetry 95 96 07/09/18 04:00 07/09/18 08:00 Temperature 98.5 F 98.2 F Pulse Rate 83 93 H Respiratory Rate 18 16 Blood Pressure 169/82 H 163/81 H Pulse Oximetry 97 97 Intake & Output 07/08/18 07/09/18 07/09/18 18:59 06:59 18:59 Intake Total 3540 / 3540 1000 / 1000 Output Total 1004 / 1004 600 / 600 Balance 2536 / 2536 400 / 400 Intake: IV 1000 / 1000 1/2 Normal Saline Inj 1,000 ML 1000 / 1000 @ 84 mls/hr IV.CONT .[id number] [facility] Rx#:[id number] Oral 400 / 400 Tube Feeding 540 / 540 Tube Irrigant 600 / 600 Water Bolus Amount 400 / 400 Anesthesia Amount 500 / 500 Other 1100 / 1100 Output: Urine 1000 / 1000 600 / 600 Stool 4 / 4 Other: Other Intake Source Saline Solution # Voids 2 # Incontinent Voids 1 Date of Last Bowel Movement 07/06/18 07/07/18 # Bowel Movements 0 # Incontinent Bowel Movements 1 - Constitutional no acute distress - Routine HEENT Exam Head: Present: normocephalic - Routine Neck Exam Present: supple - Routine Respiratory Exam Present: CTA bilaterally - Routine Cardiovascular Exam Present: RRR - Routine Abdominal Exam Present: soft - Routine Extremities Exam Present: full ROM Assessment and Plan - Assessment (1) Acute UTI Code(s): N39.0 - Urinary tract infection, site not specified Status: Acute (2) Abdominal pain Code(s): R10.9 - Unspecified abdominal pain Status: Acute (3) Acute on chronic kidney failure Code(s): N17.9 - Acute kidney failure, unspecified; N18.9 - Chronic kidney disease, unspecified Status: Acute Qualifiers: Acute renal failure type: unspecified Chronic kidney disease stage: unspecified stage Qualified Code(s): N17.9 - Acute kidney failure, unspecified ; N18.9 - Chronic kidney disease, unspecified (4) Idiopathic pancreatitis Code(s): K85.00 - Idiopathic acute pancreatitis without necrosis or infection Status: Chronic Qualifiers: - Plan Continue with the hydration and IV antibiotics continue monitor BMP Creatinine slowly improvin.7 ->4.5 -> 4.4 -->3.9->3.8-->3.6-->2.87->2.6->2.5 On IVFs half normal saline at 84 cc an hour Replace potassium Patient voiding Avoid nephrotoxins Monitor intake and output Follow BMP, potassium has been replaced Patient is more alert and responding to fluids Gastrojejunal tube change
[2018-07-09] MEDS: Temazepam 15 MG Capsule PO PRN (20:30)
[2018-07-10] MEDS: Sodium Chloride 0.45 % Inj 1,000 ML IV.CONT SCH ×2 (05:32→17:46)
[2018-07-10 06:21] LABS: Baso % (Auto) 0.1 % (0.0-2.0); Eos # (Auto) 0.2 th/mm3 (0.0-0.4); Hematocrit 34.2 % (35.0-46.0); Hemoglobin 11.2 gm/dL (11.6-15.3); Lymph # (Auto) 1.5 th/mm3 (1.0-4.8); Lymph % (Auto) 7.6 % (9.0-44.0); Mean Corpuscular HGB Conc 32.6 % (32.0-36.0); Mean Corpuscular Volume 88.9 fL (80.0-100.0); Mean Platelet Volume 8.5 fL (7.0-11.0); Mono # (Auto) 0.6 th/mm3 (0.0-0.9); Mono % (Auto) 2.9 % (0.0-8.0); Neut % (Auto) 88.4 % (16.0-70.0); Platelet Count 305 th/mm3 (150-450); Red Blood Count 3.85 mil/mm3 (4.00-5.30); Red Cell Distribution Width 17.3 % (11.6-17.2); White Blood Count 19.3 th/mm3 (4.0-11.0)
--- NOTE | 2018-07-10 06:50 | IR ---
EXAM DATE: 07/08/2018 5:56 PM EDT AGE/SEX: 82 years / Female INDICATIONS: Patient presents with clogged trans gastric tube in need of exchange for nutrition. CLINICAL DATA: This is the patient's subsequent encounter. Patient reports that signs and symptoms h ave been present for 1 week and indicates a pain score of 10/10. MEDICAL/SURGICAL HISTORY: . gastroesophageal reflux disease. Hypertension. Chronic pancreatitis . HLD. gastroparesis. CKD. . Cholecystectomy, Total knee replacement, ERCP, Biliary stent, Celiac p dominique block, Gastrojejunal tube placement COMPARISON: No prior exams available for comparison. FLUORO TIME (min): 0.2 IMAGE SERIES: 1 CONTRAST (cc): 14cc Omnipaque (iohexol) 350 MEDICATION(S): 100 mcg fentanyl (Sublimaze) IV DEVICE(S): 22 [place] Transgastric tube . . PROCEDURE: 1. Fluoroscopically guided gastrojejunostomy tube exchange. 2. Conscious sedation with continuous EKG and oximetry monitoring. The risks, benefits and alternatives to the procedure were explained and verbal and written consent w as obtained. The site was prepped in sterile fashion. Full sterile technique was used, including ca p, mask, sterile gloves and gown and a large sterile sheet. Hand hygiene and 2% chlorhexidine and/or betadine/alcohol prep was utilized per protocol for cutaneous antisepsis. The skin and subcutaneous tissues were infiltrated with local anesthetic solution. With fluoroscopic guidance a guidewire was passed through the previous gastrojejunostomy tube and a f resh tube was placed over the guidewire. The balloon was inflated with appropriate volume of saline. Injection of positive contrast demonstrates good position of the gastric and jejunal lumens of the tube. Conscious sedation was performed with the prescribed dosages and duration as above in the presence of an independent trained radiology nurse to assist in the monitoring of the patient. EKG and oximetry remained stable throughout the procedure. The patient tolerated the procedure well and there were n o complications. The patient was sent to post anesthesia recovery in stable condition. CONCLUSION: 1. Uncomplicated gastrojejunostomy tube exchange as above. Electronically signed by: Bhavin Montemayor MD 07/10/2018 6:49 AM EDT
[2018-07-10 07:21] LABS: Calcium 6.9 mg/dL (8.5-10.1); Carbon Dioxide 32.3 meq/L (21.0-32.0); Potassium 4.3 meq/L (3.5-5.1)
[2018-07-10 07:45] LABS: Total Protein 5.2 g/dL (6.4-8.2)
[2018-07-10] MEDS: amLODIPine 5 MG Tablet PO SCH (09:50)
[2018-07-10] MEDS: predniSONE 10 MG Tablet PO SCH (09:50)
[2018-07-10] MEDS: Sucralfate 1 GM Tablet PO SCH ×3 (09:50→17:47)
[2018-07-10] MEDS: Metoprolol Tartrate 25 MG Tablet PO SCH ×2 (09:50→21:53)
[2018-07-10] MEDS: Senna/Docusate Sodium 8.6/50 MG Tablet PO SCH ×2 (09:50→21:53)
[2018-07-10] MEDS: Lipase/Protease/Amylase 12/38/60 DR Capsule PO SCH ×3 (09:50→17:47)
[2018-07-10] MEDS: Simethicone 125 MG Chew Tablet PO SCH ×3 (09:51→17:47)
[2018-07-10] MEDS: Potassium Bicarbonate 25 MEQ Effervescent Tablet PO SCH (09:51)
--- NOTE | 2018-07-10 09:56 | P.PNIM ---
Subjective Interval history: pt was sleeping very well. took initial sternal rub to awaken her. she was calm. she was not answering my questions. I mentioned nursing rehab if unable to get her more ambulatory....she then clearly stated she was not going to a rehab. She wants home upon dc. but continues to refuse oob. when I brought 2 physical therapists into the room to assist me getting her oob...she then began to cry about abdome pain and calling for her mother. nurse will medicate her with pain meds and PT will try later today. Physical Exam Vital signs: Vital Signs 07/09/18 12:00 07/09/18 16:00 07/09/18 20:45 Temperature 98.4 F 97.9 F 98.9 F Pulse Rate 83 89 108 H Respiratory Rate 16 16 18 Blood Pressure 142/73 H 135/66 150/64 H Pulse Oximetry 97 98 98 07/10/18 00:00 07/10/18 06:30 Temperature 98.6 F 97.7 F Pulse Rate 110 H 115 H Respiratory Rate 19 20 Blood Pressure 142/62 H 155/65 H Pulse Oximetry 95 96 Intake & Output 07/09/18 07/10/18 07/10/18 18:59 06:59 18:59 Intake Total 1000 / 1000 2715 / 2715 Output Total 750 / 750 Balance 1000 / 1000 [birth year] Weight 68 kg Intake: IV 1000 / 1000 1000 / 1000 1/2 Normal Saline Inj 1,000 ML 1000 / 1000 1000 / 1000 @ 84 mls/hr IV.CONT .[id number] [facility] Rx#:[id number] Oral 655 / 655 Tube Feeding 540 / 540 Tube Irrigant 120 / 120 Water Bolus Amount 400 / 400 Output: Urine 750 / 750 Other: # Incontinent Voids 4 Date of Last Bowel Movement 07/09/18 # Bowel Movements 0 # Incontinent Bowel Movements 1 0 lying in bed sleeping soundly when I arrived no labored breathing heart reg lung cta abd gj tube. bs. nd ext no edema Results - Labs CBC & Chem 7: 07/10/18 05:07 07/10/18 05:07 Laboratory Results - last 24 hr 07/10/18 07/10/18 05:07 05:07 WBC 19.3 H RBC 3.85 L Hgb 11.2 L Hct 34.2 L MCV 88.9 MCH 29.0 MCHC 32.6 RDW 17.3 H Plt Count 305 MPV 8.5 Neut % (Auto) 88.4 H Lymph % (Auto) 7.6 L [place] % (Auto) 2.9 Eos % (Auto) 1.0 Baso % (Auto) 0.1 Neut # (Auto) 17.0 H Lymph # (Auto) 1.5 [place] # (Auto) 0.6 Eos # (Auto) 0.2 Baso # (Auto) 0.0 WBC Differential . Differential Comment Auto diff final Sodium 141 Potassium 4.3 D Chloride 99 Carbon Dioxide 32.3 H Anion Gap 10 BUN 60 H Creatinine 2.33 H Estimated GFR 24 L Random Glucose 143 H Calcium 6.9 L* Prot Corrected Calcium 7.9 L Total Protein 5.2 L - Imaging Impressions Tube Change 07/08/18 00:00 CONCLUSION: 1. Uncomplicated gastrojejunostomy tube exchange as above. - Procedures GI Procedure 06/30/18 with IR An ERCP was performed by the ordering physician. The images demonstrate a metallic stent in the mid and distal common bile duct. The stent is traversed with a guidewire which extends into the intrahepatic bile ducts. The final image demonstrates a plastic stent within the metallic stent. The intrahepatic bile ducts do not appear to be significantly dilated Assessment and Plan - Assessment (1) Idiopathic pancreatitis Code(s): K85.00 - Idiopathic acute pancreatitis without necrosis or infection Status: Chronic Plan: Idiopathic pancreatitis - Ms. Larsen is an 82 y/o AAF with recurrent idiopathic pancreatitis. She has been hospitalized numerous times for issues with pain control related to recurrent pancreatitis. Her last admission was from 03/03/18 to 03/28/18 and she had biliary obstruction at that time. - During that admission she underwent evaluation with ERCP (03/03/18) which noted multiple stones, migrated metal stent up into CBD, could not put plastic stent due to "kink" in current stent according to GI notes. She required PTC placement on 03/04 by IR which noted severe obstruction of the proximal common bile duct stent with very challenging recanalization requiring multiple wires and catheters. biliary stent placement. She had to have a repeat ERCP (03/07/18) and had to have the metal stent cleared of debris and they were able to confirm complete clearance of the stent with good emptying through the stent. She had a percutaneous cholangiogram on 03/09/18 where the external portion of biliary drain was removed and the report showed some small hyperplasia within the distal aspect of the biliary stent but there is a patent channel down to the small bowel. -s/p ercp 05/23 with balloon sweep of stone fragments/debris from metal stent and placement of new stent - GJ tube exchange 710 with IR -mesenteric angio with IR 05/24. patent vessels. - Pt presented back to the ED at [facility] on 06/29/18 with continued abdominal pain that is similar to her previous pancreatitis pain. - Her labs in the ED revealed WBC count 30.1, Cr 5.57 /BUN 73, Lipase 234, TBili 0.3, AST 15, ALT 11, AlkPhos 139. Abdomen/Pelvis CT 06/29/18 reveals: 1. Biliary stent with interval Silastic stent. Air in the left hepatic ducts. 2. I don't see an etiology for the patient's right-sided abdominal pain. Lack of intravenous and oral contrast makes detection of subtle abnormalities difficult 3. Inflammatory processes such as pyonephritis cannot be excluded. GI Procedure 06/30/18 with IR An ERCP was performed by the ordering physician. The images demonstrate a metallic stent in the mid and distal common bile duct. The stent is traversed with a guidewire which extends into the intrahepatic bile ducts. The final image demonstrates a plastic stent within the metallic stent. The intrahepatic bile ducts do not appear to be significantly dilated - Pain control with Morphine and [place] PRN. has been off iv pain meds. - zofran as need for N/V - Azithromycin and cefepime, stopped. No indication of infection. No fever. No cough, no dysuria -- blood cultures (07/01) --> NGTD - urine cx (06/29) --> no growth Pt gj tube reportedly not functioning again Wednesday. tube feeds were on hold....now it seems to be working and tube feeds resumed and are being titrated. still on ivf per renal until cr returns to baseline.. using po pain meds and no iv. pt needs snf but pt/family refuse at this time. asked for daily PT but so far pt not participating at all..she refuses. replaced kcl. taper steroid off. note: pt was sleeping very well. took initial sternal rub to awaken her. she was calm. she was not answering my questions. I mentioned nursing rehab if unable to get her more ambulatory....she then clearly stated she was not going to a rehab. She wants home upon dc. but continues to refuse oob. when I brought 2 physical therapists into the room to assist me getting her oob...she then began to cry about abdomen pain and calling for her mother. nurse will medicate her with pain meds and PT will try later today. Acute on chronic kidney failure - Pt with baseline stage 3 CKD, pt follows with Dr. Melara - Her labs at admission noted acute worsening BUN 73 and creatinine 5.57 estimated GFR 9 - - continue 1/2 NS at 100ml/H with NAbicarb - Nephrology also following - Avoid nephrotoxic agents UTI - see above HTN (hypertension) - Cont. home meds - Monitor GERD (gastroesophageal reflux disease) - PPI Anemia - Pt with an acute decrease in her chronic anemia - on admission patient's Hgb - obtain iron indices - transfused 2 units. DVT prophylaxis with SCDs (2) History of biliary stent insertion Code(s): Z98.890 - Other specified postprocedural states Status: Acute Plan: (1) Idiopathic pancreatitis - Ms. Larsen is an 82 y/o AAF with recurrent idiopathic pancreatitis. She has been hospitalized numerous times for issues with pain control related to recurrent pancreatitis. Her last admission was from 03/03/18 to 03/28/18 and she had biliary obstruction at that time. - During that admission she underwent evaluation with ERCP (03/03/18) which noted multiple stones, migrated metal stent up into CBD, could not put plastic stent due to "kink" in current stent according to GI notes. She required PTC placement on 03/04 by IR which noted severe obstruction of the proximal common bile duct stent with very challenging recanalization requiring multiple wires and catheters. biliary stent placement. She had to have a repeat ERCP (03/07/18) and had to have the metal stent cleared of debris and they were able to confirm complete clearance of the stent with good emptying through the stent. She had a percutaneous cholangiogram on 03/09/18 where the external portion of biliary drain was removed and the report showed some small hyperplasia within the distal aspect of the biliary stent but there is a patent channel down to the small bowel. -s/p ercp 05/23 with balloon sweep of stone fragments/debris from metal stent and placement of new stent - GJ tube exchange 710 with IR -mesenteric angio with IR 05/24. patent vessels. - Pt presented back to the ED at [facility] on 06/29/18 with continued abdominal pain that is similar to her previous pancreatitis pain. - Her labs in the ED revealed WBC count , Cr /BUN , Lipase . TBili , AST , ALT , AlkPhos . Abdomen/Pelvis CT 06/29/18 reveals: 1. Biliary stent with interval Silastic stent. Air in the left hepatic ducts. 2. I don't see an etiology for the patient's right-sided abdominal pain. Lack of intravenous and oral contrast makes detection of subtle abnormalities difficult 3. . Inflammatory processes such as pyonephritis cannot be excluded. GI Procedure 06/30/18 with IR An ERCP was performed by the ordering physician. The images demonstrate a metallic stent in the mid and distal common bile duct. The stent is traversed with a guidewire which extends into the intrahepatic bile ducts. The final image demonstrates a plastic stent within the metallic stent. The intrahepatic bile ducts do not appear to be significantly dilated - Pain control PRN with [place] PRN - zofran as need for N/V - obtain repeat CBC, CMP, Mag, lipase in AM - will try to resume Nepro TF at 15ml/hour and slowly titrate back to 45ml/hour - Supportive care - DVT prophylaxis with SCDs - Dr. Eddy will discuss with Pt/daughter, Caitlyn, (by phone) later today (2) Acute on chronic kidney failure - Pt with baseline stage 3 CKD, pt follows with Dr. Melara - Her labs at admission with a noted acute worsening of her baseline CKD. - consultation placed to Nephrology - Avoid nephrotoxic agents (3) HTN (hypertension) - Cont. home meds - Monitor (4) GERD (gastroesophageal reflux disease) - PPI (5) Anemia - Pt with an acute decrease in her chronic anemia - on admission patient's Hgb DVT prophylaxis with SCDs (3) Acute on chronic kidney failure Code(s): N17.9 - Acute kidney failure, unspecified; N18.9 - Chronic kidney disease, unspecified Status: Acute (4) Gastroparesis Code(s): K31.84 - Gastroparesis Status: Acute (1) Idiopathic pancreatitis Qualifiers: (3) Acute on chronic kidney failure Qualifiers: Acute renal failure type: unspecified Chronic kidney disease stage: unspecified stage Qualified Code(s): N17.9 - Acute kidney failure, unspecified ; N18.9 - Chronic kidney disease, unspecified
--- NOTE | 2018-07-10 16:20 | P.PNNP ---
Subjective Interval history: Patient is doing better Physical Exam Vital signs: Vital Signs 07/09/18 20:45 07/10/18 00:00 07/10/18 06:30 Temperature 98.9 F 98.6 F 97.7 F Pulse Rate 108 H 110 H 115 H Respiratory Rate 18 19 20 Blood Pressure 150/64 H 142/62 H 155/65 H Pulse Oximetry 98 95 96 Intake & Output 07/09/18 07/10/18 07/10/18 18:59 06:59 18:59 Intake Total 1000 / 1000 2715 / 2715 Output Total 750 / 750 Balance 1000 / 1000 1963 / 1963 Weight 68 kg Intake: IV 1000 / 1000 1000 / 1000 1/2 Normal Saline Inj 1,000 ML 1000 / 1000 1000 / 1000 @ 84 mls/hr IV.CONT .[id number] [facility] Rx#:[id number] Oral 655 / 655 Tube Feeding 540 / 540 Tube Irrigant 120 / 120 Water Bolus Amount 400 / 400 Output: Urine 750 / 750 Other: # Incontinent Voids 4 Date of Last Bowel Movement 07/09/18 # Bowel Movements 0 # Incontinent Bowel Movements 1 0 - Constitutional no acute distress - Routine HEENT Exam Head: Present: normocephalic - Routine Neck Exam Present: supple - Routine Respiratory Exam Present: CTA bilaterally - Routine Cardiovascular Exam Present: RRR - Routine Abdominal Exam Present: soft, normoactive bowel sounds - Routine Extremities Exam Present: pulses intact Assessment and Plan - Assessment (1) Acute UTI Code(s): N39.0 - Urinary tract infection, site not specified Status: Acute (2) Abdominal pain Code(s): R10.9 - Unspecified abdominal pain Status: Acute (3) Acute on chronic kidney failure Code(s): N17.9 - Acute kidney failure, unspecified; N18.9 - Chronic kidney disease, unspecified Status: Acute Qualifiers: Acute renal failure type: unspecified Chronic kidney disease stage: unspecified stage Qualified Code(s): N17.9 - Acute kidney failure, unspecified ; N18.9 - Chronic kidney disease, unspecified (4) Idiopathic pancreatitis Code(s): K85.00 - Idiopathic acute pancreatitis without necrosis or infection Status: Chronic Qualifiers: - Plan Continue with the hydration and IV antibiotics continue monitor BMP Creatinine slowly improvin.7 ->4.5 -> 4.4 -->3.9->3.8-->3.6-->2.87->2.6->2.5 --> 2.3 On IVFs half normal saline at 84 cc an hour Potassium was normal Patient voiding Avoid nephrotoxins Monitor intake and output Follow BMP, Patient is more alert and responding to fluids Gastrojejunal tube change Patient to follow as an outpatient upon discharge
[2018-07-10] MEDS: Temazepam 15 MG Capsule PO PRN (21:53)
[2018-07-11] MEDS: Sodium Chloride 0.45 % Inj 1,000 ML IV.CONT SCH ×2 (04:59→18:15)
[2018-07-11 06:42] LABS: Calcium 7.4 mg/dL (8.5-10.1); Carbon Dioxide 25.5 meq/L (21.0-32.0); Potassium 5.1 meq/L (3.5-5.1)
[2018-07-11 07:01] LABS: Total Protein 6.1 g/dL (6.4-8.2)
[2018-07-11] MEDS: Potassium Bicarbonate 25 MEQ Effervescent Tablet PO SCH (08:24)
[2018-07-11] MEDS: Simethicone 125 MG Chew Tablet PO SCH ×3 (08:24→18:15)
[2018-07-11] MEDS: predniSONE 10 MG Tablet PO SCH (08:24)
[2018-07-11] MEDS: Sucralfate 1 GM Tablet PO SCH ×3 (08:24→18:15)
[2018-07-11] MEDS: Metoprolol Tartrate 25 MG Tablet PO SCH ×2 (08:24→20:16)
[2018-07-11] MEDS: amLODIPine 5 MG Tablet PO SCH (08:24)
[2018-07-11] MEDS: Senna/Docusate Sodium 8.6/50 MG Tablet PO SCH ×2 (08:25→20:16)
[2018-07-11] MEDS: Lipase/Protease/Amylase 12/38/60 DR Capsule PO SCH ×3 (09:36→18:15)
--- NOTE | 2018-07-11 14:14 | P.PNIM ---
Subjective Interval history: No new complaints. Physical Exam Vital signs: 07/11/18 04:30 07/11/18 08:00 07/11/18 12:00 Temperature 98 F 98.2 F 97.8 F Pulse Rate 105 H 93 H 82 Respiratory Rate 19 18 16 Blood Pressure 140/80 154/80 H 148/76 H Pulse Oximetry 98 97 97 Narrative: GENERAL: NAD CARDIO: Regular RESP: clear x b/l ABD: Abdomen soft, mild tenderness on palpation GJ tube in place, no drainage or erythema EXT: No cyanosis, or edema. Neuro: A&Ox3 Results - Labs CBC & Chem 7: 07/10/18 05:07 07/11/18 03:44 - Imaging Abdomen/Pelvis CT 06/29/18 20:27 CONCLUSION: 1. Biliary stent with interval Silastic stent. Air in the left hepatic ducts. 2. I don't see an etiology for the patient's right-sided abdominal pain. Lack of intravenous and oral contrast makes detection of subtle abnormalities difficult 3. . Inflammatory processes such as pyonephritis cannot be excluded. Chest X-Ray 06/29/18 20:27 CONCLUSION: Linear areas of atelectasis or scarring. These are stable. No new or acute abnormality is seen. GI Procedure 06/30/18 00:00 CONCLUSION: Spot fluoroscopic images during ERCP, as above. Head CT 07/02/18 11:14 CONCLUSION: No acute intracranial findings. Head MRI 07/02/18 15:30 CONCLUSION: 1. Senescent changes without acute abnormality. 2. Specifically, no evidence for acute infarction, hemorrhage or mass. Abdomen X-Ray 07/04/18 00:00 CONCLUSION: The presumed injected oral contrast material in the GJ tube fills the jejunum indicating normal position of the GJ tube. Tube Change 07/08/18 00:00 CONCLUSION: 1. Uncomplicated gastrojejunostomy tube exchange as above. - Procedures GI Procedure 06/30/18 with IR An ERCP was performed by the ordering physician. The images demonstrate a metallic stent in the mid and distal common bile duct. The stent is traversed with a guidewire which extends into the intrahepatic bile ducts. The final image demonstrates a plastic stent within the metallic stent. The intrahepatic bile ducts do not appear to be significantly dilated Assessment and Plan - Assessment (1) Idiopathic pancreatitis Code(s): K85.00 - Idiopathic acute pancreatitis without necrosis or infection Status: Chronic Plan: Idiopathic pancreatitis - Ms. Larsen is an 82 y/o AAF with recurrent idiopathic pancreatitis. She has been hospitalized numerous times for issues with pain control related to recurrent pancreatitis. Her last admission was from 03/03/18 to 03/28/18 and she had biliary obstruction at that time. - During that admission she underwent evaluation with ERCP (03/03/18) which noted multiple stones, migrated metal stent up into CBD, could not put plastic stent due to "kink" in current stent according to GI notes. She required PTC placement on 03/04 by IR which noted severe obstruction of the proximal common bile duct stent with very challenging recanalization requiring multiple wires and catheters. biliary stent placement. She had to have a repeat ERCP (03/07/18) and had to have the metal stent cleared of debris and they were able to confirm complete clearance of the stent with good emptying through the stent. She had a percutaneous cholangiogram on 03/09/18 where the external portion of biliary drain was removed and the report showed some small hyperplasia within the distal aspect of the biliary stent but there is a patent channel down to the small bowel. -s/p ercp 05/23 with balloon sweep of stone fragments/debris from metal stent and placement of new stent - GJ tube exchange 710 with IR -mesenteric angio with IR 05/24. patent vessels. - Pt presented back to the ED at [facility] on 06/29/18 with continued abdominal pain that is similar to her previous pancreatitis pain. - Her labs in the ED revealed WBC count 30.1, Cr 5.57 /BUN 73, Lipase 234, TBili 0.3, AST 15, ALT 11, AlkPhos 139. Abdomen/Pelvis CT 06/29/18 reveals: 1. Biliary stent with interval Silastic stent. Air in the left hepatic ducts. 2. I don't see an etiology for the patient's right-sided abdominal pain. Lack of intravenous and oral contrast makes detection of subtle abnormalities difficult 3. Inflammatory processes such as pyonephritis cannot be excluded. GI Procedure 06/30/18 with IR An ERCP was performed by the ordering physician. The images demonstrate a metallic stent in the mid and distal common bile duct. The stent is traversed with a guidewire which extends into the intrahepatic bile ducts. The final image demonstrates a plastic stent within the metallic stent. The intrahepatic bile ducts do not appear to be significantly dilated - Pain control with Morphine and [place] PRN. has been off iv pain meds. - zofran as need for N/V - Azithromycin and cefepime, stopped. No indication of infection. No fever. No cough, no dysuria -- blood cultures (07/01) --> NGTD - urine cx (06/29) --> no growth - nursing staff report that J-tube is NOT functioning - IR to evaluate J-tube - continue PT - Pt would benefit from SNF at the end of this hospitalization - If pt unwilling to accept SNF, then will arrange for HHC with home PT - SCDs for DVT prophylaxis - supportive care - I attempted to reach pt's daughter Caitlyn Perez at work phone number at [facility]. I made several attempts, but was NOT able to reach Ms. Perez. Acute on chronic kidney failure - Pt with baseline stage 3 CKD, pt follows with Dr. Melara - Her labs at admission noted acute worsening BUN 73 and creatinine 5.57 estimated GFR 9 - - continue 1/2 NS at 100ml/H with NAbicarb - Nephrology also following - Avoid nephrotoxic agents UTI - see above HTN (hypertension) - Cont. home meds - Monitor GERD (gastroesophageal reflux disease) - PPI Anemia - Pt with an acute decrease in her chronic anemia - on admission patient's Hgb - obtain iron indices - transfused 2 units. DVT prophylaxis with SCDs (2) History of biliary stent insertion Code(s): Z98.890 - Other specified postprocedural states Status: Acute Plan: (1) Idiopathic pancreatitis - Ms. Larsen is an 82 y/o AAF with recurrent idiopathic pancreatitis. She has been hospitalized numerous times for issues with pain control related to recurrent pancreatitis. Her last admission was from 03/03/18 to 03/28/18 and she had biliary obstruction at that time. - During that admission she underwent evaluation with ERCP (03/03/18) which noted multiple stones, migrated metal stent up into CBD, could not put plastic stent due to "kink" in current stent according to GI notes. She required PTC placement on 03/04 by IR which noted severe obstruction of the proximal common bile duct stent with very challenging recanalization requiring multiple wires and catheters. biliary stent placement. She had to have a repeat ERCP (03/07/18) and had to have the metal stent cleared of debris and they were able to confirm complete clearance of the stent with good emptying through the stent. She had a percutaneous cholangiogram on 03/09/18 where the external portion of biliary drain was removed and the report showed some small hyperplasia within the distal aspect of the biliary stent but there is a patent channel down to the small bowel. -s/p ercp 05/23 with balloon sweep of stone fragments/debris from metal stent and placement of new stent - GJ tube exchange 710 with IR -mesenteric angio with IR 05/24. patent vessels. - Pt presented back to the ED at [facility] on 06/29/18 with continued abdominal pain that is similar to her previous pancreatitis pain. - Her labs in the ED revealed WBC count , Cr /BUN , Lipase . TBili , AST , ALT , AlkPhos . Abdomen/Pelvis CT 06/29/18 reveals: 1. Biliary stent with interval Silastic stent. Air in the left hepatic ducts. 2. I don't see an etiology for the patient's right-sided abdominal pain. Lack of intravenous and oral contrast makes detection of subtle abnormalities difficult 3. . Inflammatory processes such as pyonephritis cannot be excluded. GI Procedure 06/30/18 with IR An ERCP was performed by the ordering physician. The images demonstrate a metallic stent in the mid and distal common bile duct. The stent is traversed with a guidewire which extends into the intrahepatic bile ducts. The final image demonstrates a plastic stent within the metallic stent. The intrahepatic bile ducts do not appear to be significantly dilated - Pain control PRN with [place] PRN - zofran as need for N/V - obtain repeat CBC, CMP, Mag, lipase in AM - will try to resume Nepro TF at 15ml/hour and slowly titrate back to 45ml/hour - Supportive care - DVT prophylaxis with SCDs - Dr. Eddy will discuss with Pt/daughter, Caitlyn, (by phone) later today (2) Acute on chronic kidney failure - Pt with baseline stage 3 CKD, pt follows with Dr. Melara - Her labs at admission with a noted acute worsening of her baseline CKD. - consultation placed to Nephrology - Avoid nephrotoxic agents (3) HTN (hypertension) - Cont. home meds - Monitor (4) GERD (gastroesophageal reflux disease) - PPI (5) Anemia - Pt with an acute decrease in her chronic anemia - on admission patient's Hgb DVT prophylaxis with SCDs (3) Acute on chronic kidney failure Code(s): N17.9 - Acute kidney failure, unspecified; N18.9 - Chronic kidney disease, unspecified Status: Acute (4) Gastroparesis Code(s): K31.84 - Gastroparesis Status: Acute - Plan Patient examined. Assessment and plan formulated with Olga PETERSON I agree with the above. (1) Idiopathic pancreatitis Qualifiers: (3) Acute on chronic kidney failure Qualifiers: Acute renal failure type: unspecified Chronic kidney disease stage: unspecified stage Qualified Code(s): N17.9 - Acute kidney failure, unspecified ; N18.9 - Chronic kidney disease, unspecified
--- NOTE | 2018-07-11 15:06 | P.PNNP ---
Subjective Interval history: Patient gastrojejunostomy tube is not working Physical Exam Vital signs: Vital Signs 07/10/18 16:00 07/10/18 20:45 07/11/18 00:00 Temperature 98.2 F 98.1 F 97.9 F Pulse Rate 88 101 H 100 H Respiratory Rate 18 19 19 Blood Pressure 133/73 140/69 145/65 H Pulse Oximetry 99 98 98 07/11/18 04:30 07/11/18 08:00 07/11/18 12:00 Temperature 98 F 98.2 F 97.8 F Pulse Rate 105 H 93 H 82 Respiratory Rate 19 18 16 Blood Pressure 140/80 154/80 H 148/76 H Pulse Oximetry 98 97 97 Intake & Output 07/10/18 07/11/18 07/11/18 18:59 06:59 18:59 Intake Total 1240 / 1240 3580 / 3580 Output Total 650 / 650 1200 / 1200 Balance 590 / 590 2380 / 2380 Weight 68 kg Intake: IV 1000 / 1000 1000 / 1000 1/2 Normal Saline Inj 1,000 ML 1000 / 1000 1000 / 1000 @ 84 mls/hr IV.CONT .[id number] [facility] Rx#:[id number] Oral 240 / 240 1520 / 1520 Tube Feeding 540 / 540 Tube Irrigant 120 / 120 Water Bolus Amount 400 / 400 Output: Urine 650 / 650 1200 / 1200 Other: # Incontinent Voids 1 Date of Last Bowel Movement 07/09/18 # Bowel Movements 0 # Incontinent Bowel Movements 0 Narrative: GENERAL: NAD CARDIO: Regular RESP: clear x b/l ABD: Abdomen soft, mild tenderness on palpation GJ tube in place, no drainage or erythema EXT: No cyanosis, or edema. Neuro: A&Ox3 Assessment and Plan - Assessment (1) Acute UTI Code(s): N39.0 - Urinary tract infection, site not specified Status: Acute (2) Abdominal pain Code(s): R10.9 - Unspecified abdominal pain Status: Acute (3) Acute on chronic kidney failure Code(s): N17.9 - Acute kidney failure, unspecified; N18.9 - Chronic kidney disease, unspecified Status: Acute Qualifiers: Qualified Code(s): N17.9 - Acute kidney failure, unspecified; N18.9 - Chronic kidney disease, unspecified (4) Idiopathic pancreatitis Code(s): K85.00 - Idiopathic acute pancreatitis without necrosis or infection Status: Chronic Qualifiers: - Plan Continue with the hydration and IV antibiotics continue monitor BMP Creatinine slowly improvin.7 ->4.5 -> 4.4 -->3.9->3.8-->3.6-->2.87->2.6->2.5 --> 2.3-->2.2 On IVFs half normal saline at 84 cc an hour Potassium was normal Patient voiding Avoid nephrotoxins Monitor intake and output Follow BMP, Patient is more alert and responding to fluids Gastrojejunal tube to be reevaluated again Kidney functions have improved with hydration Patient to follow as an outpatient upon discharge
--- NOTE | 2018-07-11 15:07 | P.DCO ---
- Diagnosis (2) Acute on chronic kidney failure (3) Idiopathic pancreatitis (6) Anemia - Physical Therapy Order: Evaluate and treat - Home Health Nursing Order: Medical education, Nursing assessment with vital signs - Certification I have seen patient Park Larsen on 07/11/18. My clinical findings support the need for the requested home health care services because: Deconditioned with increased weakness I certify that my clinical findings support that this patient is homebound because: Unsteady gait/balance (2) Acute on chronic kidney failure Qualifiers: Acute renal failure type: unspecified Chronic kidney disease stage: unspecified stage Qualified Code(s): N17.9 - Acute kidney failure, unspecified ; N18.9 - Chronic kidney disease, unspecified (3) Idiopathic pancreatitis Qualifiers: (6) Anemia Qualifiers: Anemia type: unspecified type Qualified Code(s): D64.9 - Anemia, unspecified
[2018-07-11] MEDS ORDERED: fentaNYL Citrate Inj 100 MCG/2 ML Ampul ONE (16:04)
[2018-07-11] MEDS ORDERED: Iohexol 350 MG/ML 50 ML Vial (for Rad Diag) G-TUBE ONE (16:46)
--- NOTE | 2018-07-11 17:23 | IR ---
EXAM DATE: 07/11/2018 5:07 PM EDT AGE/SEX: 82 years / Female INDICATIONS: Patient with clogged J tube. CLINICAL DATA: This is the patient's subsequent encounter. Patient reports that signs and symptoms h ave been present for > 1 year and indicates a pain score of 0/10. MEDICAL/SURGICAL HISTORY: Gastroesophageal reflux disease. Hypertension. Pancreatitis. HLD,g astroparesis,CKD, Cholecystectomy. total knee replacement,ERCP, biliary stent,celiac plexus block,GJ tube COMPARISON: [facility], GASTROJEJUNOSTOMY TUBE EXCHANGE, 05/24/2018. . FLUORO TIME (min): 0.5 IMAGE SERIES: 1 CONTRAST (cc): 10 Omnipaque (iohexol) 350 MEDICATION(S): 25 mcg fentanyl (Sublimaze) IV DEVICE(S): 22 [place] Transgastric tube . . PROCEDURE: 1. Fluoroscopically guided gastrojejunostomy tube exchange. 2. Conscious sedation with continuous EKG and oximetry monitoring. The risks, benefits and alternatives to the procedure were explained and verbal and written consent w as obtained. The site was prepped in sterile fashion. Full sterile technique was used, including ca p, mask, sterile gloves and gown and a large sterile sheet. Hand hygiene and 2% chlorhexidine and/or betadine/alcohol prep was utilized per protocol for cutaneous antisepsis. The skin and subcutaneous tissues were infiltrated with local anesthetic solution. With fluoroscopic guidance a guidewire was passed through the previous gastrojejunostomy tube and a f resh tube was placed over the guidewire. The balloon was inflated with appropriate volume of saline. Injection of positive contrast demonstrates good position of the gastric and jejunal lumens of the tube. Conscious sedation was performed with the prescribed dosages and duration as above in the presence of an independent trained radiology nurse to assist in the monitoring of the patient. EKG and oximetry remained stable throughout the procedure. The patient tolerated the procedure well and there were n o complications. The patient was sent to post anesthesia recovery in stable condition. CONCLUSION: 1. Uncomplicated gastrojejunostomy tube exchange as above. Electronically signed by: Bhavin Montemayor MD 07/11/2018 5:21 PM EDT
[2018-07-12] MEDS: Sodium Chloride 0.45 % Inj 1,000 ML IV.CONT SCH ×2 (05:17→17:36)
[2018-07-12] MEDS: Lipase/Protease/Amylase 12/38/60 DR Capsule PO SCH ×3 (08:29→17:35)
[2018-07-12] MEDS: Sucralfate 1 GM Tablet PO SCH ×3 (08:29→17:35)
[2018-07-12] MEDS: amLODIPine 5 MG Tablet PO SCH (08:29)
[2018-07-12] MEDS: Potassium Bicarbonate 25 MEQ Effervescent Tablet PO SCH (08:30)
[2018-07-12] MEDS: Simethicone 125 MG Chew Tablet PO SCH ×3 (08:30→17:35)
[2018-07-12] MEDS: predniSONE 10 MG Tablet PO SCH (08:30)
[2018-07-12] MEDS: Metoprolol Tartrate 25 MG Tablet PO SCH ×2 (08:31→21:15)
[2018-07-12] MEDS: Senna/Docusate Sodium 8.6/50 MG Tablet PO SCH ×2 (08:31→21:16)
--- NOTE | 2018-07-12 11:45 | P.DIET ---
Nutritional Evaluation Type of nutrition evaluation: follow-up Nutrition consult regarding: Tube Feeding Nutrition screening: [facility] [place] ("family states pt did better on Jevity 1.5, please speak to granddaughter") Subjective Subjective Comments: No visitors present when pt was seen this am. Left my business card for family to contact me with TFing questions. Eating none of her breakfast. TFing was not running. Nursing informed. Objective - Diagnosis Abdominal Pain. PMH see H&P - Objective [facility] body weight: 59 kg % IBW: 106 Energy Needs - Lower Range (kCal/kg): 25 Energy Needs - Upper Range (kCal/kg): 30 Lower Limit kCal/kg (kCals): 1,575 Upper Limit kCal/kg (kCals): 1,890 Lower Limit Protein Factor (Grams per Kg): 0.6 Upper Limit Protein Factor (Grams per Kg): 1 Lower Protein Needs (Protein): 38 Upper Protein Needs (Protein): 63 Dietitian Reviewed in Medical Record: Current diet, Curent medications, Intake & Output, Labs, Medical history, Tube feeding, Wound/DTI Diet Order: regular Objective Comments: Labs: BUN/creat 47/2.20, Est GFR 26 Feeding - Current Tube Feeding Tube Feeding Product: Nepro Tube Feeding Rate: 45 Current kCals Provided by Tube Feedin,944 Current Protein Provided by Tube Feeding (gPRO): 88 Current Free H2O Provided (m/l): 785 Assessment Assessment: Pt. is at nutritional risk due to dx. and need for TFing. Pt. presented to the emergency department for abdominal pain. The patient had a 3 day history of epigastric abdominal pain that radiates into the chest and is associated with nausea and vomiting. Pt. is in acute on chronic renal failure stage 3. Recommend changing TFing to Suplena @ goal rate of 40mls/hr. Will provide 1728kcals, 43g of protein and 708mls of free water. Nepro TFing is formulated for pts on dialysis. Recommendations: Recommend changing TFing to Suplena @ goal rate of 40mls/hr. Dietitian to Monitor: Lab values, Renal labs, Diet tolerance, Tube feeding tolerance, Weight change, Residuals, PO Intake, Wound/skin status, Medical course
--- NOTE | 2018-07-12 16:59 | P.PNIM ---
Subjective Interval history: Pt has NO new complaints. Pt is tolerating TF. Pt agree with discharge 07/13/18 Physical Exam Vital signs: 07/12/18 12:00 Temperature 98.4 F Pulse Rate 85 Respiratory Rate 20 Blood Pressure 156/85 H Pulse Oximetry 20 L Narrative: GENERAL: NAD CARDIO: Regular RESP: clear x b/l ABD: Abdomen soft, mild tenderness on palpation GJ tube in place, no drainage or erythema EXT: No cyanosis, or edema. Neuro: A&Ox3 Results - Labs CBC & Chem 7: 07/13/18 06:53 07/13/18 06:53 - Imaging Abdomen/Pelvis CT 06/29/18 20:27 CONCLUSION: 1. Biliary stent with interval Silastic stent. Air in the left hepatic ducts. 2. I don't see an etiology for the patient's right-sided abdominal pain. Lack of intravenous and oral contrast makes detection of subtle abnormalities difficult 3. Inflammatory processes such as pyonephritis cannot be excluded. Chest X-Ray 06/29/18 20:27 CONCLUSION: Linear areas of atelectasis or scarring. These are stable. No new or acute abnormality is seen. GI Procedure 06/30/18 00:00 CONCLUSION: Spot fluoroscopic images during ERCP, as above. Head CT 07/02/18 11:14 CONCLUSION: No acute intracranial findings. Head MRI 07/02/18 15:30 CONCLUSION: 1. Senescent changes without acute abnormality. 2. Specifically, no evidence for acute infarction, hemorrhage or mass. Abdomen X-Ray 07/04/18 00:00 CONCLUSION: The presumed injected oral contrast material in the GJ tube fills the jejunum indicating normal position of the GJ tube. Tube Change 07/08/18 00:00 CONCLUSION: 1. Uncomplicated gastrojejunostomy tube exchange as above. Tube Change 07/11/18 00:00 CONCLUSION: 1. Uncomplicated gastrojejunostomy tube exchange as above. - Procedures GI Procedure 06/30/18 with IR An ERCP was performed by the ordering physician. The images demonstrate a metallic stent in the mid and distal common bile duct. The stent is traversed with a guidewire which extends into the intrahepatic bile ducts. The final image demonstrates a plastic stent within the metallic stent. The intrahepatic bile ducts do not appear to be significantly dilated Assessment and Plan - Assessment (1) Idiopathic pancreatitis Code(s): K85.00 - Idiopathic acute pancreatitis without necrosis or infection Status: Chronic Plan: Idiopathic pancreatitis - Ms. Larsen is an 82 y/o AAF with recurrent idiopathic pancreatitis. She has been hospitalized numerous times for issues with pain control related to recurrent pancreatitis. Her last admission was from 03/03/18 to 03/28/18 and she had biliary obstruction at that time. - During that admission she underwent evaluation with ERCP (03/03/18) which noted multiple stones, migrated metal stent up into CBD, could not put plastic stent due to "kink" in current stent according to GI notes. She required PTC placement on 03/04 by IR which noted severe obstruction of the proximal common bile duct stent with very challenging recanalization requiring multiple wires and catheters. biliary stent placement. She had to have a repeat ERCP (03/07/18) and had to have the metal stent cleared of debris and they were able to confirm complete clearance of the stent with good emptying through the stent. She had a percutaneous cholangiogram on 03/09/18 where the external portion of biliary drain was removed and the report showed some small hyperplasia within the distal aspect of the biliary stent but there is a patent channel down to the small bowel. -s/p ercp 05/23 with balloon sweep of stone fragments/debris from metal stent and placement of new stent - GJ tube exchange 710 with IR -mesenteric angio with IR 05/24. patent vessels. - Pt presented back to the [place] at [facility] [place] 06/29/18 with continued abdominal pain that is similar to her previous pancreatitis pain. - Her labs in the ED revealed WBC count 30.1, Cr 5.57 /BUN 73, Lipase 234, TBili 0.3, AST 15, ALT 11, AlkPhos 139. Abdomen/Pelvis CT 06/29/18 reveals: 1. Biliary stent with interval Silastic stent. Air in the left hepatic ducts. 2. I don't see an etiology for the patient's right-sided abdominal pain. Lack of intravenous and oral contrast makes detection of subtle abnormalities difficult 3. Inflammatory processes such as pyonephritis cannot be excluded. GI Procedure 06/30/18 with IR An ERCP was performed by the ordering physician. The images demonstrate a metallic stent in the mid and distal common bile duct. The stent is traversed with a guidewire which extends into the intrahepatic bile ducts. The final image demonstrates a plastic stent within the metallic stent. The intrahepatic bile ducts do not appear to be significantly dilated - Pain control with Morphine and [place] PRN. has been off iv pain meds. - zofran as need for N/V - Azithromycin and cefepime, stopped. No indication of infection. No fever. No cough, no dysuria -- blood cultures (07/01) --> NGTD - urine cx (06/29) --> no growth - Pt underwent exchange of G/J tube 07/11/18 - Pt receiving TF by G/J tube at 45ml/hour without difficulties - continue PT - Nursing reports that pt was able to ambulate to the door with PT - Nursing reports that pt is impulsive and has been ambulating to the commode independently without calling for help as instructed - Pt would benefit from SNF at the end of this hospitalization - pt unwilling to accept SNF, will arrange for HHC with home PT - repeat labs 07/13/18 - anticipate d/c to home with HHC and home PT 07/13/18 - SCDs for DVT prophylaxis - supportive care - Pt's daughter, Caitlyn, was updated by phone (07/12) All questions were answered to the best of my ability. Acute on chronic kidney failure - Pt with baseline stage 3 CKD, pt follows with Dr. Melara - Her labs at admission noted acute worsening BUN 73 and creatinine 5.57 estimated GFR 9 - - Nephrology also following - Avoid nephrotoxic agents UTI - see above HTN (hypertension) - Cont. home meds - Monitor GERD (gastroesophageal reflux disease) - PPI Anemia - Pt with an acute decrease in her chronic anemia - on admission patient's Hgb - obtain iron indices - transfused 2 units. DVT prophylaxis with SCDs (2) Acute UTI Code(s): N39.0 - Urinary tract infection, site not specified Status: Acute (3) Abdominal pain Code(s): R10.9 - Unspecified abdominal pain Status: Acute (4) Acute on chronic kidney failure Code(s): N17.9 - Acute kidney failure, unspecified; N18.9 - Chronic kidney disease, unspecified Status: Acute (5) HTN (hypertension) Code(s): I10 - Essential (primary) hypertension Status: Acute (6) GERD (gastroesophageal reflux disease) Code(s): K21.9 - Gastro-esophageal reflux disease without esophagitis Status: Acute (7) Gastroparesis Code(s): K31.84 - Gastroparesis Status: Acute (8) Anemia Code(s): D64.9 - Anemia, unspecified Status: Chronic (1) Idiopathic pancreatitis Qualifiers: Qualified Code(s): K86.1 - Other chronic pancreatitis (4) Acute on chronic kidney failure Qualifiers: Acute renal failure type: unspecified Chronic kidney disease stage: unspecified stage Qualified Code(s): N17.9 - Acute kidney failure, unspecified ; N18.9 - Chronic kidney disease, unspecified (8) Anemia Qualifiers: Anemia type: unspecified type Qualified Code(s): D64.9 - Anemia, unspecified
[2018-07-13] MEDS: Temazepam 15 MG Capsule PO PRN (00:57)
[2018-07-13] MEDS: Sodium Chloride 0.45 % Inj 1,000 ML IV.CONT SCH ×3 (00:58→18:02)
[2018-07-13 07:42] LABS: Baso # (Auto) 0.1 th/mm3 (0.0-0.2); Baso % (Auto) 0.2 % (0.0-2.0); Eos % (Auto) 0.2 % (0.0-4.0); Hematocrit 33.1 % (35.0-46.0); Hemoglobin 10.6 gm/dL (11.6-15.3); Lymph # (Auto) 0.8 th/mm3 (1.0-4.8); Lymph % (Auto) 2.6 % (9.0-44.0); Mean Corpuscular HGB Conc 32.2 % (32.0-36.0); Mean Corpuscular Hemoglobin 28.7 pg (27.0-34.0); Mean Corpuscular Volume 89.4 fL (80.0-100.0); Mean Platelet Volume 9.4 fL (7.0-11.0); Mono # (Auto) 1.2 th/mm3 (0.0-0.9); Mono % (Auto) 3.8 % (0.0-8.0); Neut % (Auto) 93.2 % (16.0-70.0); Platelet Count 190 th/mm3 (150-450); Red Cell Distribution Width 17.1 % (11.6-17.2); White Blood Count 32.2 th/mm3 (4.0-11.0)
[2018-07-13] MEDS: predniSONE 10 MG Tablet PO SCH (08:34)
[2018-07-13] MEDS: amLODIPine 5 MG Tablet PO SCH (08:34)
[2018-07-13] MEDS: Lipase/Protease/Amylase 12/38/60 DR Capsule PO SCH ×3 (08:34→18:01)
[2018-07-13] MEDS: Metoprolol Tartrate 25 MG Tablet PO SCH (08:34)
[2018-07-13] MEDS: Sucralfate 1 GM Tablet PO SCH ×3 (08:34→18:01)
[2018-07-13 08:35] LABS: Carbon Dioxide 27.8 meq/L (21.0-32.0)
[2018-07-13] MEDS: Simethicone 125 MG Chew Tablet PO SCH ×3 (08:35→18:02)
[2018-07-13] MEDS: Senna/Docusate Sodium 8.6/50 MG Tablet PO SCH (08:35)
[2018-07-13 08:41] LABS: Lymphocytes 6 % (9-44); Monocytes 3 % (0-8); Platelet Estimate Normal (Normal); Platelet Morphology Normal (Normal); Toxic Granulation 1+
[2018-07-13] MEDS: Potassium Bicarbonate 25 MEQ Effervescent Tablet PO SCH (10:58)
--- NOTE | 2018-07-13 12:02 | P.DS ---
Date of admission: 06/29/18 22:12 Primary care physician: Hong Peterson MD Attending physician on discharge: Alexander Eddy Anticipated date of discharge: 07/13/18 Brief History from admission: HPI narrative: The patient is a 82-year-old -[place] female who presents emergency department for abdominal pain. The patient is a 3 day history of epigastric abdominal pain that radiates into the chest and his associate with nausea and vomiting. The patient also notes diarrhea, however, family states the diarrhea secondary to tube feedings. The patient saw her poultry farmer meat yesterday, Dr. Chavez, who advised her to come to the emergency department if her symptoms persisted. The patient does have a history of chronic pancreatitis, has had a previous cholecystectomy. She denies any alcohol use. The patient has been doing tube feedings, does note decreased appetite and dry heaves over the last 3 days. She denies any dysuria , frequency, or urgency. Symptoms are moderate and similar to previous pancreatitis exacerbations. Patient has a history of recurrent idiopathic pancreatitis, with numerous admissions to hospital with pain related problems due to her recurrent pancreatitis. Last admitted approximately 3 weeks ago prior to that was in from February until March at which time she had biliary obstruction during that admission she underwent an ERCP which noted multiple stone, metal stent was placed in the common bile duct unable to put a plastic stent due to kink in the current stent according to GI. Patient required PTC placement in February by interventional radiology which noted obstruction of the proximal common bile duct stent and difficult recannulization. Repeat ERCP was also done clearing of debris. Patient also underwent a cholangiogram in February 2018 and was admitted in May with recurrent pancreatitis also note she had acute renal failure on chronic renal failure and had elevated WBC count as well ask at that time on last admission her creatinine at discharge was in the 2.32.4 range 5 and an evaluation in the ER today she again has a WBC count of 30 ,000 she may have a slight pneumonia on chest x-ray she also has acute on chronic renal failure again and will be admitted for further evaluation does meet SIRS criteria. DS: Diagnosis - Discharge Diagnosis (1) Acute UTI Status: Acute (2) Abdominal pain Status: Acute (3) Acute on chronic kidney failure Status: Acute (4) Idiopathic pancreatitis Status: Chronic (5) HTN (hypertension) Status: Acute (6) GERD (gastroesophageal reflux disease) Status: Acute (7) Gastroparesis Status: Acute (8) Anemia Status: Chronic DS: Medications - Discharge Medications Prescriptions: hydrocodone-acetaminophen [Supply] 1 tab PO Q4H PRN #18 tab PRN Reason: Pain prednisone 10 mg PO DAILY #5 tab DS: Summary Hospital Course: (1) Idiopathic pancreatitis Code(s): K85.00 - Idiopathic acute pancreatitis without necrosis or infection Status: Chronic Plan: Idiopathic pancreatitis - Ms. Larsen is an 82 y/o AAF with recurrent idiopathic pancreatitis. She has been hospitalized numerous times for issues with pain control related to recurrent pancreatitis. Her last admission was from 03/03/18 to 03/28/18 and she had biliary obstruction at that time. - During that admission she underwent evaluation with ERCP (03/03/18) which noted multiple stones, migrated metal stent up into CBD, could not put plastic stent due to "kink" in current stent according to GI notes. She required PTC placement on 03/04 by IR which noted severe obstruction of the proximal common bile duct stent with very challenging recanalization requiring multiple wires and catheters. biliary stent placement. She had to have a repeat ERCP (03/07/18) and had to have the metal stent cleared of debris and they were able to confirm complete clearance of the stent with good emptying through the stent. She had a percutaneous cholangiogram on 03/09/18 where the external portion of biliary drain was removed and the report showed some small hyperplasia within the distal aspect of the biliary stent but there is a patent channel down to the small bowel. -s/p ercp 05/23 with balloon sweep of stone fragments/debris from metal stent and placement of new stent - GJ tube exchange 710 with IR -mesenteric angio with IR 05/24. patent vessels. - [place] [facility] [place] with continued abdominal pain that is similar to her previous pancreatitis pain. - Her labs in the ED revealed WBC count 30.1, Cr 5.57 /BUN 73, Lipase 234, TBili 0.3, AST 15, ALT 11, AlkPhos 139. Abdomen/Pelvis CT 06/29/18 reveals: 1. Biliary stent with interval Silastic stent. Air in the left hepatic ducts. 2. I don't see an etiology for the patient's right-sided abdominal pain. Lack of intravenous and oral contrast makes detection of subtle abnormalities difficult 3. Inflammatory processes such as pyonephritis cannot be excluded. GI Procedure 06/30/18 with IR An ERCP was performed by the ordering physician. The images demonstrate a metallic stent in the mid and distal common bile duct. The stent is traversed with a guidewire which extends into the intrahepatic bile ducts. The final image demonstrates a plastic stent within the metallic stent. The intrahepatic bile ducts do not appear to be significantly dilated - Pain control with Morphine and Supply PRN. has been off iv pain meds. - zofran as need for N/V - Azithromycin and cefepime, stopped. No indication of infection. No fever. No cough, no dysuria -- blood cultures (07/01) --> NGTD - urine cx (06/29) --> no growth - Pt underwent exchange of G/J tube 07/11/18 - Pt receiving TF by G/J tube at 45ml/hour without difficulties - continue PT - Nursing reports that pt was able to ambulate to the door with PT 07/12/18 - Nursing reports that pt is impulsive and has been ambulating to the commode independently without calling for help as instructed 07/12/18 - Pt would benefit from SNF at the end of this hospitalization - pt unwilling to accept SNF, will arrange for HHC with home PT - repeat BMP, showed Cr much improved from admission 5.57 (06/29) & now 2.11 () - persistent leukocytosis 32.2 (07/13). No indication of infection: no fever, no cough, no dysuria, abdominal pain resolved. Pt has had leukocytosis associated with pancreatitis on previous admissions. Previous peripheral smears showed only reactive process. - Wean off steroids slowly which may by contributing to pt's leukocytosis - will d/c to home with HHC and home PT - repeat CBC at home 07/19/18 with results to PCP - Pt/family adamantly refuse SNF - d/c to home with HHC and home PT 07/13/18 - f/u with PCP, Dr. Peterson in 1 week - f/u with [facility], Dr. Ortega, in 2 weeks Acute on chronic kidney failure - Pt with baseline stage 3 CKD, pt follows with Dr. Melara - Nephrology also following - Avoid nephrotoxic agents - see above UTI - see above HTN (hypertension) - Cont. home meds - Monitor GERD (gastroesophageal reflux disease) - PPI Anemia - Pt with an acute decrease in her chronic anemia - on admission patient's Hgb - obtain iron indices - transfused 2 units. DVT prophylaxis with SCDs (2) Acute UTI Code(s): N39.0 - Urinary tract infection, site not specified Status: Acute (3) Abdominal pain Code(s): R10.9 - Unspecified abdominal pain Status: Acute (4) Acute on chronic kidney failure Code(s): N17.9 - Acute kidney failure, unspecified; N18.9 - Chronic kidney disease, unspecified Status: Acute (5) HTN (hypertension) Code(s): I10 - Essential (primary) hypertension Status: Acute (6) GERD (gastroesophageal reflux disease) Code(s): K21.9 - Gastro-esophageal reflux disease without esophagitis Status: Acute (7) Gastroparesis Code(s): K31.84 - Gastroparesis Status: Acute (8) Anemia Code(s): D64.9 - Anemia, unspecified Status: Chronic Per pt, she has run out of her home hydrocodone. Pt requested that I write a prescription. [employer] reviewed 07/13/18. Pt written prescription for norco 5/325mg, #18 (3 days supply) one tablet q4 hours prn pain, No refills. Pt to f/u with PCP. - Time Spent with Patient Total time spent providing and/or coordinating discharge services: Greater than 30 minutes - Quality: VTE Deep Vein Thrombosis/Pulmonary Embolism Present on Admission: No Exam Vital signs: Vital Signs 07/12/18 16:00 07/12/18 20:00 07/13/18 00:00 Temperature 98.6 F 97.9 F 98.3 F Pulse Rate 88 97 H 93 H Respiratory Rate 18 20 16 Blood Pressure 143/74 H 157/76 H 162/79 H Pulse Oximetry 99 99 07/13/18 01:04 07/13/18 04:00 07/13/18 05:51 Temperature 98.3 F Pulse Rate 106 H Respiratory Rate 18 18 18 Blood Pressure 171/92 H Pulse Oximetry 99 07/13/18 08:00 Temperature 97.6 F Pulse Rate 116 H Respiratory Rate 15 Blood Pressure 155/90 H Pulse Oximetry 100 Intake & Output 07/12/18 07/13/18 07/13/18 18:59 06:59 18:59 Intake Total 1894 300 / 300 Balance 1894 300 / 300 Weight 68 kg Intake: IV 1000 / 1000 1000 / 1000 300 / 300 1/2 Normal Saline Inj 1,000 ML 1000 / 1000 1000 / 1000 300 / 300 @ 84 mls/hr IV.CONT .[id number] [facility] Rx#:[id number] Oral 0 / 0 100 / 100 Tube Feeding 495 / 495 545 / 545 Water Bolus Amount 400 / 400 400 / 400 Other: # Voids 3 Date of Last Bowel Movement 07/11/18 07/13/18 # Bowel Movements 0 Results Procedures completed during hospitalization: GI Procedure 06/30/18 with IR An ERCP was performed by the ordering physician. The images demonstrate a metallic stent in the mid and distal common bile duct. The stent is traversed with a guidewire which extends into the intrahepatic bile ducts. The final image demonstrates a plastic stent within the metallic stent. The intrahepatic bile ducts do not appear to be significantly dilated Labs on day of discharge: Labs from last 24 hours 07/13/18 07/13/18 06:53 06:53 WBC 32.2 H RBC 3.70 L Hgb 10.6 L Hct 33.1 L MCV 89.4 MCH 28.7 MCHC 32.2 RDW 17.1 Plt Count 190 D MPV 9.4 Prelim Diff (Auto) Slide review pending Neut % (Auto) 93.2 H Lymph % (Auto) 2.6 L Harvey % (Auto) 3.8 Eos % (Auto) 0.2 Baso % (Auto) 0.2 Neut # (Auto) 30.0 H Lymph # (Auto) 0.8 L Harvey # (Auto) 1.2 H Eos # (Auto) 0.0 Baso # (Auto) 0.1 WBC Differential Manual diff final Seg Neuts % (Manual) 91 H Lymphocytes % (Manual) 6 L Monocytes % (Manual) 3 Abs Neuts (Manual) 29.3 H Differential Comment . Toxic Granulation 1+ H Platelet Estimate Normal Platelet Morphology Normal Sodium 135 L Potassium 4.0 Chloride 98 Carbon Dioxide 27.8 Anion Gap 9 BUN 44 H Creatinine 2.11 H Estimated GFR 27 L Random Glucose 170 H Calcium 8.0 L - Impressions ITS Impressions Abdomen/Pelvis CT 06/29/18 20:27 CONCLUSION: 1. Biliary stent with interval Silastic stent. Air in the left hepatic ducts. 2. I don't see an etiology for the patient's right-sided abdominal pain. Lack of intravenous and oral contrast makes detection of subtle abnormalities difficult 3. . Inflammatory processes such as pyonephritis cannot be excluded. Chest X-Ray 06/29/18 20:27 CONCLUSION: Linear areas of atelectasis or scarring. These are stable. No new or acute abnormality is seen. GI Procedure 06/30/18 00:00 CONCLUSION: Spot fluoroscopic images during ERCP, as above. Head CT 07/02/18 11:14 CONCLUSION: No acute intracranial findings. . Head MRI 07/02/18 15:30 CONCLUSION: 1. Senescent changes without acute abnormality. 2. Specifically, no evidence for acute infarction, hemorrhage or mass. Abdomen X-Ray 07/04/18 00:00 CONCLUSION: The presumed injected oral contrast material in the GJ tube fills the jejunum indicating normal position of the GJ tube. Tube Change 07/11/18 00:00 CONCLUSION: 1. Uncomplicated gastrojejunostomy tube exchange as above. Discharge Plan - Discharge Disposition Patient Disposition: /Home Health Service - Discharge Condition Condition: Stable - Discharge Order Discharge Orders: Discharge Order (Routine); Ordered 07/13/18 Ordered By: Alexander Eddy - Physicians Team Primary Care Provider: Hong Peterson Attending Provider: Alexander Eddy Other Providers: Patrick Hernandez MD ; Arnaldo Melara MD ; Omar Kline MD, PhD ; Stef Marlow MD ; [facility]
== END 2018-07-13 19:52 | disposition home health service (06) ==
LOC: NEPE 19:47 → NEDA 22:12 → NEPHCDU 23:11 → N05 07-01 12:48
PROVIDERS: ADMIT Hospitalist; ATTEND Hospitalist

== ENCOUNTER 2018-07-17 18:09 | Inpatient (IN) ==
[2018-07-17] MEDS ORDERED: Morphine Inj 4 MG/ML Vial IV.PUSH ONE (19:53)
--- NOTE | 2018-07-17 19:53 | ED ---
HPI General Chief complaint: Abdominal Pain Stated complaint: Abd pain Time Seen by Provider: 07/17/18 18:33 Source: patient History of Present Illness HPI narrative: The patient is an 82 year old female who presents to the [facility] emergency department with a history of abdominal pain that reportedly has been a chronic issue related to pancreatitis. The patient was recently in the hospital related to diarrhea, and epigastric abdominal pain that radiates to the right upper quadrant of the abdomen. She has been on Ione at home every 6 hours, however the pain became much worse today. She has had nausea and vomiting 3 today. She denies having any diarrhea. She reports that her last bowel movement was last night. She denies having any blood in her stool or black or tarry stools. The patient's daughter is present at the bedside. The patient has a feeding tube in place. The patient's daughter reports that she does not tolerate the tube feeds well. She reports that she does not like having them administered. The patient is unsure why she does not like having her tube feeds. According to the daughter she is on a low rate of 2 feet that is supposed to be continuous. She last had a tube feed done last night. She is taking small sips of fluids and taking her pills by mouth. She is also eating a small amount of food by mouth. Her daughter reports that she has been experiencing weight loss, however they are unsure how much. The patient reports that the pain sometimes will radiate up into her chest. She reports the pain also makes her feel short of breath. She denies having any known recent fevers, cough, congestion, neck pain, urinary symptoms, or neurologic symptoms. Her primary care physician is Dr. Peterson. She has not seen him since discharge. The patient's GI doctor is . Related Data Home Medications Medication Instructions Recorded Confirmed [id number] [Creon] 1 tab PO TIDPC 05/16/18 07/17/18 magnesium hydroxide [Presley Milk 311 mg PO QID PRN 05/16/18 07/17/18 of Magnesia] metoprolol tartrate 25 mg PO BID 05/16/18 07/17/18 pantoprazole 40 mg PO BID 05/16/18 07/17/18 sucralfate 1 g PO TID 05/16/18 07/17/18 Previous Rx's Medication Instructions Recorded amlodipine [Norvasc] 5 mg PO DAILY tab 07/13/18 duloxetine [Cymbalta] 20 mg PO DAILY cap 07/13/18 hydrocodone-acetaminophen [Ione] 1 tab PO Q4H PRN #18 tab 07/13/18 prednisone 10 mg PO DAILY #5 tab 07/13/18 ursodiol [Actigall] 300 mg PO BID cap 07/13/18 water for injection, sterile 200 ml G-TUBE Q6HR ml 07/13/18 Allergies Allergy/AdvReac Type Severity Reaction Status Date / Time No Known Allergies Allergy Unverified 05/16/18 07:25 Review of Systems ROS: all other systems reviewed are negative (Except for that mentioned in the HPI.) [facility] Medical History Medical History Anxiety (Acute) CKD (chronic kidney disease) stage 3, GFR 30-59 ml/min (Acute) Encounter for gastrojejunal (GJ) tube placement (Acute) GERD (gastroesophageal reflux disease) (Acute) Hypertension (Acute) Idiopathic pancreatitis (Acute) Pancreatitis (Acute) Surgical History Surgical History History of total left knee replacement (TKR) (Acute) Hx of cholecystectomy (Acute) S/P ERCP (Acute) Family History Family History Other Family history non-contributory Social History Social History Substance History: No History of Abuse Second Hand Smoke Exposure: No Smoking Status: Never smoker How Often Do You Have a Drink Containing Alcohol: Never Recent Travel in [facility] within the Last 8 Weeks: No Recent Out of Country Travel within the Last 8 Weeks: No Immunization History Tetanus Immunization: Unsure Hx Influenza Vaccine This Season: Yes Exam Const General: cooperative, well developed and acute distress (The patient is tearful on examination in mild distress related reportedly to her abdominal pain.) Nutritional Appearance: well nourished Orientation: alert, awake and oriented x3 HENMT Head: normocephalic and atraumatic Nose: no nasal discharge and no epistaxis Mouth: moist mucous membranes Throat: posterior oropharynx normal and uvula midline Eyes Sclera: normal sclerae Pupils: PERRL Neck Neck: no meningeal signs, trachea midline and no JVD Resp Effort & Inspection: no use of accessory muscles Auscultation: clear to auscultation bilaterally Cardio Rate: regular rate Rhythm: regular rhythm Heart Sounds: no gallops, no murmurs and no rubs GI Inspection: non-distended Palpation: soft, no hepatosplenomegaly and tender in the epigastrum and in the RUQ; not in the LLQ, not in the RLQ, not in the LUQ, not at McBurney's point, not suprapubicly, Herrera's sign negative and with no rebound tenderness Auscultation: normal bowel sounds Back/Spine/Pelvis Back: no CVA tenderness Cervical Spine: normal cervical lordosis Skin General: dry skin (warm) Neuro General: alert and awake Cranial Nerves: other (No facial asymmetry. Grossly nonfocal.) Speech: speech normal Motor: no movement abnormalities noted Extrem General: normal to inspection (No calf tenderness on palpation. 2+ pulses in all 4 extremities.), no clubbing, no cyanosis and no edema Psych Mood: congruent mood Affect: normal affect Judgment: judgment good Course Initial Documented Vital Signs Temperature 98.3 F 07/17/18 18:15 Pulse Rate 102 H 07/17/18 18:15 Respiratory Rate 20 07/17/18 18:15 Blood Pressure 122/69 07/17/18 18:15 Pulse Oximetry 99 07/17/18 18:15 Last Documented Vital Signs Temperature 98.4 F 07/18/18 16:00 Pulse Rate 94 H 07/18/18 16:00 Respiratory Rate 18 07/18/18 16:00 Blood Pressure 126/69 07/18/18 16:00 Pulse Oximetry 99 07/18/18 16:00 Medical Decision Making MDM Narrative Medical decision making narrative: in the recent past, last elevated white count was on July 13 at 32.2.During the course of the patient's emergency department visit, the patient's history, examination, and differential diagnosis were reviewed with the patient. The patient was placed on a threat monitoring analyst with oximetry and frequent blood pressure monitoring. The patient had IV access obtained and blood work sent for analysis. A diagnostic evaluation was started regarding the patient's recurrent abdominal pain. The patient was initially provided normal saline IV fluids, morphine for pain, Zofran for nausea. The patient's diagnostic evaluation is remarkable for an elevated white count at 26.1, however from reviewing the electronic medical record the patient has had elevated white counts The patient has a left shift with a neutrophil predominance of 94.3, toxic granulation is present, platelets are normal, hemoglobin is 11.4. Which is stable compared to her last hemoglobin at 10.6. PT 11.9, PTT 33.1 chemistry is remarkable for a normal troponin I, lipase elevated at 632 which is compared to a normal lipase at 271, creatinine is elevated at 3.33 which is increased from 2.11 consistent with an acute kidney injury, BUN 51, albumin 2.5 urinalysis shows many WBC clumps, 176 WBCs, 68 RBCs , 100 protein, moderate occult blood, few mucus, large leukocyte esterase. The patient will be started on broad-spectrum antibiotic given her leukocytosis. Blood cultures 2 will be sent for analysis. A lactic acid was already done and within normal limits at 1.2. A chest x-ray showed slight worsening right lung base atelectasis. The patient's results were discussed with the patient, including the plan of care. I explained that further testing and/ or monitoring is indicated based on the patient's history, examination, and/ or laboratory findings. Therefore, I recommended admission for additional evaluation. The patient expressed understanding and was agreeable with this plan. The patient was admitted to the hospital in guarded condition and sent to a bed under the care of the [facility] hospitalist service. The patient's case including history, pertinent physical examination findings, and laboratory studies were discussed with Dr. Eddy. It was agreed that the patient would be admitted to the [facility] hospitalist service. Medical Screen Exam Complete: Yes Emergency Medical Condition: Yes Differential Diagnosis Differential Diagnosis: Acute pancreatitis, versus chronic pancreatitis, versus obstruction of biliary stent, versus colitis, versus diverticulitis, versus dehydration, versus electrolyte derangements Medical Records Medical records reviewed: Yes I reviewed the patient's medical records. Lab Data Result diagrams: 07/18/18 05:20 07/18/18 05:20 Lab Results 07/17/18 07/17/18 07/17/18 Range/Units 20:05 20:05 20:05 WBC (4.0-11.0) th/mm3 RBC (4.00-5.30) mil/mm3 Hgb (11.6-15.3) gm/dL Hct (35.0-46.0) % MCV (80.0-100.0) fL MCH (27.0-34.0) pg MCHC (32.0-36.0) % RDW (11.6-17.2) % Plt Count (150-450) th/mm3 MPV (7.0-11.0) fL Prelim Diff (Auto) Neut % (Auto) (16.0-70.0) % Lymph % (Auto) (9.0-44.0) % [place] % (Auto) (0.0-8.0) % Eos % (Auto) (0.0-4.0) % Baso % (Auto) (0.0-2.0) % Neut # (Auto) (1.8-7.7) th/mm3 Lymph # (Auto) (1.0-4.8) th/mm3 [place] # (Auto) (0.0-0.9) th/mm3 Eos # (Auto) (0.0-0.4) th/mm3 Baso # (Auto) (0.0-0.2) th/mm3 WBC Differential Seg Neuts % (Manual) (16-70) % Band Neuts % (Manual) (0-6) % Lymphocytes % (Manual) (9-44) % Monocytes % (Manual) (0-8) % Eosinophils % (Manual) (0-4) % Abs Neuts (Manual) (1.8-7.7) th/mm3 Differential Comment Platelet Estimate (Normal) Platelet Morphology (Normal) PT 11.9 H (9.8-11.6) sec INR 1.2 Ratio APTT 33.1 H (24.3-30.1) sec Sodium (136-145) meq/L Potassium (3.5-5.1) meq/L Chloride (98-107) meq/L Carbon Dioxide (21.0-32.0) meq/L Anion Gap (5-15) meq/L BUN (7-18) mg/dL Creatinine (0.50-1.00) mg/dL Estimated GFR (>89) mL/min Random Glucose (74-106) mg/dL Lactic Acid 1.2 (0.4-2.0) mmol/L Calcium (8.5-10.1) mg/dL Magnesium (1.5-2.5) mg/dL Total Bilirubin (0.2-1.0) mg/dL AST (15-37) U/L ALT (10-53) U/L Alkaline Phosphatase (45-117) U/L Total Creatine Kinase Cancelled Troponin I Cancelled C-Reactive Protein (0.00-0.30) mg/dL Total Protein (6.4-8.2) g/dL Albumin (3.4-5.0) g/dL Triglycerides (42-150) mg/dL Lipase (73-393) U/L Urine Color (Yellw/Straw) Urine Clarity (Clear) Urine pH (5.0-8.5) Ur Specific [place] (1.002-1.035) Urine Protein (Neg-Trace) mg/dL Urine Glucose (UA) (Negative) mg/dL Urine Ketones (Negative) mg/dL Urine Occult Blood (Negative) Urine Nitrate (Negative) Urine Bilirubin (Negative) Urine Urobilinogen (Less than 2) mg/dL Ur Leukocyte Esterase (Negative) Urine RBC (0-3) /hpf Urine WBC (0-5) /hpf Urine WBC Clumps (None) Ur Squamous Epith Cells (0-5) /hpf Ur Transition Epith Cell (None) /hpf Ur Renal Epithelial Cell (None) /hpf Urine Bacteria (None) /hpf Urine Mucus (Occasional) /lpf Micro UA Comment Ur Microscopic Review Urine Culture Comments 07/17/18 07/17/18 07/17/18 Range/Units 20:05 20:05 20:05 WBC 26.1 H (4.0-11.0) th/mm3 RBC 4.00 (4.00-5.30) mil/mm3 Hgb 11.4 L (11.6-15.3) gm/dL Hct 35.7 (35.0-46.0) % MCV 89.4 (80.0-100.0) fL MCH 28.6 (27.0-34.0) pg MCHC 32.0 (32.0-36.0) % RDW 18.2 H (11.6-17.2) % Plt Count 237 (150-450) th/mm3 MPV 8.8 (7.0-11.0) fL Prelim Diff (Auto) Neut % (Auto) 94.3 H (16.0-70.0) % Lymph % (Auto) 2.4 L (9.0-44.0) % [place] % (Auto) 2.2 (0.0-8.0) % Eos % (Auto) 0.7 (0.0-4.0) % Baso % (Auto) 0.4 (0.0-2.0) % Neut # (Auto) 24.7 H (1.8-7.7) th/mm3 Lymph # (Auto) 0.6 L (1.0-4.8) th/mm3 [place] # (Auto) 0.6 (0.0-0.9) th/mm3 Eos # (Auto) 0.2 (0.0-0.4) th/mm3 Baso # (Auto) 0.1 (0.0-0.2) th/mm3 WBC Differential . Seg Neuts % (Manual) (16-70) % Band Neuts % (Manual) (0-6) % Lymphocytes % (Manual) (9-44) % Monocytes % (Manual) (0-8) % Eosinophils % (Manual) (0-4) % Abs Neuts (Manual) (1.8-7.7) th/mm3 Differential Comment Auto diff final Platelet Estimate (Normal) Platelet Morphology (Normal) PT (9.8-11.6) sec INR Ratio APTT (24.3-30.1) sec Sodium 137 (136-145) meq/L Potassium 4.2 (3.5-5.1) meq/L Chloride 100 (98-107) meq/L Carbon Dioxide 24.6 (21.0-32.0) meq/L Anion Gap 12 (5-15) meq/L BUN 51 H (7-18) mg/dL Creatinine 3.33 H (0.50-1.00) mg/dL Estimated GFR 16 L (>89) mL/min Random Glucose 81 (74-106) mg/dL Lactic Acid (0.4-2.0) mmol/L Calcium 9.1 Cancelled (8.5-10.1) mg/dL Magnesium (1.5-2.5) mg/dL Total Bilirubin 0.6 (0.2-1.0) mg/dL AST 16 (15-37) U/L ALT 15 (10-53) U/L Alkaline Phosphatase 110 (45-117) U/L Total Creatine Kinase 32 Troponin I Less than 0.02 L C-Reactive Protein 43.00 H Cancelled (0.00-0.30) mg/dL Total Protein 7.7 D (6.4-8.2) g/dL Albumin 2.5 L (3.4-5.0) g/dL Triglycerides 168 H Cancelled (42-150) mg/dL Lipase 632 H (73-393) U/L Urine Color (Yellw/Straw) Urine Clarity (Clear) Urine pH (5.0-8.5) Ur Specific [place] (1.002-1.035) Urine Protein (Neg-Trace) mg/dL Urine Glucose (UA) (Negative) mg/dL Urine Ketones (Negative) mg/dL Urine Occult Blood (Negative) Urine Nitrate (Negative) Urine Bilirubin (Negative) Urine Urobilinogen (Less than 2) mg/dL Ur Leukocyte Esterase (Negative) Urine RBC (0-3) /hpf Urine WBC (0-5) /hpf Urine WBC Clumps (None) Ur Squamous Epith Cells (0-5) /hpf Ur Transition Epith Cell (None) /hpf Ur Renal Epithelial Cell (None) /hpf Urine Bacteria (None) /hpf Urine Mucus (Occasional) /lpf Micro UA Comment Ur Microscopic Review Urine Culture Comments 07/17/18 07/18/18 07/18/18 Range/Units 20:10 05:20 05:20 WBC 20.6 H (4.0-11.0) th/mm3 RBC 3.17 L (4.00-5.30) mil/mm3 Hgb 9.0 L D (11.6-15.3) gm/dL Hct 28.0 L (35.0-46.0) % MCV 88.3 (80.0-100.0) fL MCH 28.5 (27.0-34.0) pg MCHC 32.3 (32.0-36.0) % RDW 17.8 H (11.6-17.2) % Plt Count 212 (150-450) th/mm3 MPV 8.7 (7.0-11.0) fL Prelim Diff (Auto) Manual diff required Neut % (Auto) (16.0-70.0) % Lymph % (Auto) (9.0-44.0) % [place] % (Auto) (0.0-8.0) % Eos % (Auto) (0.0-4.0) % Baso % (Auto) (0.0-2.0) % Neut # (Auto) (1.8-7.7) th/mm3 Lymph # (Auto) (1.0-4.8) th/mm3 [place] # (Auto) (0.0-0.9) th/mm3 Eos # (Auto) (0.0-0.4) th/mm3 Baso # (Auto) (0.0-0.2) th/mm3 WBC Differential Manual diff final Seg Neuts % (Manual) 87 H (16-70) % Band Neuts % (Manual) 4 (0-6) % Lymphocytes % (Manual) 5 L (9-44) % Monocytes % (Manual) 2 (0-8) % Eosinophils % (Manual) 2 (0-4) % Abs Neuts (Manual) 18.7 H (1.8-7.7) th/mm3 Differential Comment . Platelet Estimate Normal (Normal) Platelet Morphology Normal (Normal) PT (9.8-11.6) sec INR Ratio APTT (24.3-30.1) sec Sodium 139 (136-145) meq/L Potassium 3.7 (3.5-5.1) meq/L Chloride 104 (98-107) meq/L Carbon Dioxide 22.0 (21.0-32.0) meq/L Anion Gap 13 (5-15) meq/L BUN 52 H (7-18) mg/dL Creatinine 3.28 H (0.50-1.00) mg/dL Estimated GFR 16 L (>89) mL/min Random Glucose 76 (74-106) mg/dL Lactic Acid (0.4-2.0) mmol/L Calcium 8.1 L D (8.5-10.1) mg/dL Magnesium 1.5 (1.5-2.5) mg/dL Total Bilirubin 0.5 (0.2-1.0) mg/dL AST 9 L (15-37) U/L ALT 11 (10-53) U/L Alkaline Phosphatase 87 (45-117) U/L Total Creatine Kinase Troponin I C-Reactive Protein (0.00-0.30) mg/dL Total Protein 6.4 D (6.4-8.2) g/dL Albumin 2.0 L (3.4-5.0) g/dL Triglycerides (42-150) mg/dL Lipase 396 H (73-393) U/L Urine Color Yellow (Yellw/Straw) Urine Clarity Hazy H (Clear) Urine pH 6.0 (5.0-8.5) Ur Specific [place] 1.010 (1.002-1.035) Urine Protein 100 H (Neg-Trace) mg/dL Urine Glucose (UA) Negative (Negative) mg/dL Urine Ketones Negative (Negative) mg/dL Urine Occult Blood Moderate H (Negative) Urine Nitrate Negative (Negative) Urine Bilirubin Negative (Negative) Urine Urobilinogen Less than 2 (Less than 2) mg/dL Ur Leukocyte Esterase Large H (Negative) Urine RBC 68 H (0-3) /hpf Urine WBC 176 H (0-5) /hpf Urine WBC Clumps Many H (None) Ur Squamous Epith Cells 3 (0-5) /hpf Ur Transition Epith Cell 1 (None) /hpf Ur Renal Epithelial Cell 1 (None) /hpf Urine Bacteria Few H (None) /hpf Urine Mucus Few H (Occasional) /lpf Micro UA Comment Cath-culture ind Ur Microscopic Review Not Reportable Urine Culture Comments Cath-cult indicated Imaging Data Radiologist's impression: Chest X-Ray 07/17/18 19:53 CONCLUSION: Slight worsening right lung base atelectasis. Abdomen/Pelvis CT 07/17/18 19:55 CONCLUSION: Stable examination not significantly changed. ECG Data Attestation: I personally reviewed and interpreted this ECG as follows: Interpretation: The patient had a EKG done on arrival. The patient's EKG shows a sinus tachycardia with a short NE interval, heart rate of 101, QRS duration 68 ms, QTC [address] segment elevation. Nonspecific ST-T wave abnormalities are noted. Discharge Plan Discharge Disposition Patient Disposition: 30 Still Patient Discharge Details Diagnosis: Idiopathic pancreatitis, Leukocytosis Physicians Team ED Provider: Whitney Horta Primary Care Provider: Hong Peterson Attending Provider: Alexander Eddy Other Providers: Salvatore Dobbs Discharge Interventions Interventions: ED Discharge Assessment Last Done: 07/17/18 23:01 Vital Signs Last Done: 07/18/18 03:00 Status ED Status: Left Department Discharge Information Discharge Date/Time: 07/17/18 23:01
[2018-07-17] MEDS ORDERED: Sod Chloride 0.9% Inj 1,000 ML IV.CONT SCH (20:00)
[2018-07-17 20:23] LABS: Baso # (Auto) 0.1 th/mm3 (0.0-0.2); Baso % (Auto) 0.4 % (0.0-2.0); Eos # (Auto) 0.2 th/mm3 (0.0-0.4); Eos % (Auto) 0.7 % (0.0-4.0); Hematocrit 35.7 % (35.0-46.0); Hemoglobin 11.4 gm/dL (11.6-15.3); Lymph # (Auto) 0.6 th/mm3 (1.0-4.8); Lymph % (Auto) 2.4 % (9.0-44.0); Mean Corpuscular Hemoglobin 28.6 pg (27.0-34.0); Mean Corpuscular Volume 89.4 fL (80.0-100.0); Mean Platelet Volume 8.8 fL (7.0-11.0); Mono # (Auto) 0.6 th/mm3 (0.0-0.9); Mono % (Auto) 2.2 % (0.0-8.0); Neut # (Auto) 24.7 th/mm3 (1.8-7.7); Neut % (Auto) 94.3 % (16.0-70.0); Platelet Count 237 th/mm3 (150-450); Red Cell Distribution Width 18.2 % (11.6-17.2); White Blood Count 26.1 th/mm3 (4.0-11.0)
[2018-07-17 20:33] LABS: Bacteria,Urine Few /hpf; Bilirubin,Urine Negative (Negative); Clarity,Urine Hazy (Clear); Color,Urine Yellow (Yellw/Straw); Glucose,Urine (UA) Negative (Negative); Leukocyte Esterase,Urine Large (Negative); Mucus,Urine Few /lpf (Occasional); Nitrite,Urine Negative (Negative); Renal Epithelial Cells,Urine 1 /hpf; Squamous Epithelial Cell,Urine 3 /hpf (0-5); Transitional Epi Cells,Urine 1 /hpf
[2018-07-17 20:34] LABS: Activated Partial Thrombo Time 33.1 sec (24.3-30.1); INR 1.2 Ratio; Prothrombin Time 11.9 sec (9.8-11.6)
[2018-07-17 20:41] LABS: Alanine Aminotransferase 15 U/L (10-53)
[2018-07-17 20:44] LABS: Albumin 2.5 g/dL (3.4-5.0); Anion Gap 12 meq/L (5-15); Aspartate Aminotransferase 16 U/L (15-37); Blood Urea Nitrogen 51 mg/dL (7-18); Calcium 9.1 mg/dL (8.5-10.1); Carbon Dioxide 24.6 meq/L (21.0-32.0); Chloride 100 meq/L (98-107); Glomerular Filtration Rate 16 mL/min (>89); Glucose,Random 81 mg/dL (74-106); Lipase 632 U/L (73-393); Potassium 4.2 meq/L (3.5-5.1); Sodium 137 meq/L (136-145)
--- NOTE | 2018-07-17 20:44 | XR ---
EXAM DATE: 07/17/2018 8:42 PM EDT AGE/SEX: 82 years / Female INDICATIONS: Possible free air. Lower chest pain. CLINICAL DATA: This is the patient's initial encounter. Patient reports that signs and symptoms have been present for 1 day and indicates a pain score of 6/10. MEDICAL/SURGICAL HISTORY: None. None. [place] [facility] [place]. . FINDINGS: Again noted are areas of linear scar and/or atelectasis right lung base slightly worse. The re is of the examination has not changed. There is no evidence for free intraperitoneal air for technique. CONCLUSION: Slight worsening right lung base atelectasis. Electronically signed by: Tawanda Baer MD 07/17/2018 8:43 PM EDT
[2018-07-17 20:45] LABS: Alkaline Phosphatase 110 U/L (45-117); Total Protein 7.7 g/dL (6.4-8.2)
[2018-07-17 20:50] LABS: Creatine Kinase 32 U/L (26-192)
[2018-07-17] MEDS ORDERED: Vancomycin Inj 1,000 MG in Sodium Chlor 0.9% Inj 250 ML IV.SIG STA (21:41)
[2018-07-17] MEDS ORDERED: HYDROmorphone PF Inj 1 MG/ML Ampul IV.PUSH PRN (21:49)
[2018-07-17] MEDS: Metoprolol Tartrate 25 MG Tablet PO SCH (22:15)
[2018-07-17] MEDS: Sodium Chloride 0.45 % Inj 1,000 ML IV.CONT SCH (22:15)
[2018-07-17] MEDS: Morphine Inj 4 MG/ML Vial IV.PUSH PRN (22:18)
--- NOTE | 2018-07-17 22:38 | CT ---
EXAM DATE: 07/17/2018 10:30 PM EDT AGE/SEX: 82 years / Female INDICATIONS: Abdomen pain. CLINICAL DATA: This is the patient's initial encounter. Patient reports that signs and symptoms have been present for 1 day and indicates a pain score of 5/10. MEDICAL/SURGICAL HISTORY: Renal failure, chronic. Hypertension. Pancreatitis. Cholecystectomy . RADIATION DOSE: 8.04 CTDI (mGy) COMPARISON: [facility] [place] [facility] [place] PELVIS W/O CONTRAST, 06/29/2018. . TECHNIQUE: Multiple contiguous axial images were obtained through the abdomen. Images were obtained using multiple row detector helical technique. Using automated exposure control and adjustment of the mA and/or kV according to patient size, radiation dose was kept as low as reasonably achievable to o btain optimal diagnostic quality images. DICOM format image data is available electronically for rev iew and comparison. FINDINGS: Abdomen CT: The liver, spleen, pancreas, adrenals are unremarkable. There is no evidence for any appreciable path ological adenopathy, free fluid, or bowel obstruction. There is slight scarring and/or atelectasis i n the right middle lobe and right lung base. GJ tube is in place and there is also a biliary stent in place and it through it there is a separate biliary drainage tube. There is a tiny 3 mm stone in the right kidney nonobstructing. There are simple cysts in both kidneys the largest measures 1.6 cm on t he left and 2.3 cm on the right. Pelvic CT: There is no evidence for mass, abscess formation, or any significant adenopathy within the pelvis. T here appears to be chronic spondylolysis bilaterally L5 with mild anterolisthesis L5-S1 is significan t superimposed degenerative change. There are scattered diverticuli within the colon mainly the sigmo id colon without signs of diverticulitis for technique. CONCLUSION: Stable examination not significantly changed. Electronically signed by: Tawanda Baer MD 07/17/2018 10:37 PM EDT
[2018-07-17 22:39] LABS: Triglycerides 168 mg/dL (42-150)
[2018-07-18 06:31] LABS: Mean Corpuscular HGB Conc 32.3 % (32.0-36.0); Mean Corpuscular Hemoglobin 28.5 pg (27.0-34.0); Mean Corpuscular Volume 88.3 fL (80.0-100.0); Mean Platelet Volume 8.7 fL (7.0-11.0); Platelet Count 212 th/mm3 (150-450); Red Blood Count 3.17 mil/mm3 (4.00-5.30); Red Cell Distribution Width 17.8 % (11.6-17.2); White Blood Count 20.6 th/mm3 (4.0-11.0)
[2018-07-18 06:49] LABS: Alanine Aminotransferase 11 U/L (10-53); Alkaline Phosphatase 87 U/L (45-117); Anion Gap 13 meq/L (5-15); Aspartate Aminotransferase 9 U/L (15-37); Blood Urea Nitrogen 52 mg/dL (7-18); Calcium 8.1 mg/dL (8.5-10.1); Chloride 104 meq/L (98-107); Glomerular Filtration Rate 16 mL/min (>89); Glucose,Random 76 mg/dL (74-106); Lipase 396 U/L (73-393); Magnesium 1.5 mg/dL (1.5-2.5); Potassium 3.7 meq/L (3.5-5.1); Total Protein 6.4 g/dL (6.4-8.2)
[2018-07-18 06:50] LABS: Sodium 139 meq/L (136-145)
[2018-07-18] MEDS: amLODIPine 5 MG Tablet PO SCH (08:35)
[2018-07-18] MEDS: predniSONE 10 MG Tablet PO SCH (08:35)
[2018-07-18] MEDS: Sucralfate 1 GM Tablet PO SCH ×3 (08:35→19:36)
[2018-07-18] MEDS: Metoprolol Tartrate 25 MG Tablet PO SCH ×2 (08:36→21:40)
--- NOTE | 2018-07-18 09:59 | P.CONPAL ---
Consult Service: Palliative Care Requesting Physician: Alexander Eddy Reason for Consult: a. To assist with evaluation and management of symptoms including: pain, debility b. To assist medical decision maker(s) with: better understanding of current medical conditions; weighing benefits/burdens of medical treatment options; making medical treatment decisions. Primary Care Provider: Hong Peterson MD History of Present Illness History of Present Illness: This is an 82 yo female with hx chronic idiopathic pancreatitis, GJ tube placement, biliary stent placement, CKD, admitted 07/17 with abdominal pain. On admission labs remarkable for WBC 26.1 with left shift, lipase 632, creatinine 3.33, BUN 51, albumin 2.5. Per review of EMR she chronically and intermittently has elevated white CXR showed mild worsening right lung basilar atelectasis. CT was not significantly changed from prior, showed GJ tube, biliary stent. She has had multilple hospitalizations for pancreatitis and abd pain, kidney issues, starting years ago. Daughter Caitlyn notes HTN and CKD started simultaneously as the recurrent pancreatitis. She was recently admitted 06/30 - 07/13 for epigastric and RUQ abd pain, diarrhea. She had ERCP and metal stent placement 06/30. Her bile duct was full of debris, stones. GI recommended stent exchange in 4-5 months. At time of d/c family refused SNF placement. She was d/c home with home health. At home she was taking norco q6h for abd pain. In the past she has been evaluated by GI at [place]. Today lipase is down to 396. Blood and urine cultures are pending. She is on creon and actigall. On my eval pt is mildly lethargic but oriented x 4. She c /o abd pain, 8/10, burning, constant. She admits she has had it "for awhile" but is unable to further qualify or quantify her pain. She admits weight loss but cannot further quantify. She admits occasional shortness of breath but cannot qualify that further. She denies anxiety, depression. She says her kidneys "work sometimes." She does not allow me to perform a throrough abd exam , she is guarding and has tenderness to light palpation. She says she lives at home and her granddaughter lives with her and helps her. Per family pt had a fall at the hospital 2 weeks ago and has been weaker since. She has poor PO intake and the tube feedings give her diarrhea, according to family. She is afraid to eat for fear of abdominal pain. Pt is a limited and reluctant historian, answers questions selectively, hx obtained from EMR and family. Function/Cognitive Trajectory: Pt has had multiple hospitalizations recently. GJ tube requiring mult replacements. She had a fall 2 weeks ago approximately At home she lives with granddaughter, ambulates with walker. Per PT notes she requires rest breaks. She does tell me she is intermittenly SOB. per family pt has declined and decline has been especially profound since the fall 2 weeks ago. Review of Systems unobtainable due to mental status (pt reluctant/poor hist. completed to best of my ability from chart, family) Constitutional: Reports weight loss Eyes: Denies blind spots Ears, Nose, Mouth, and Throat: Denies abnormal hearing Cardiovascular: Reports shortness of breath with activity, Denies chest pain Respiratory: Reports shortness of breath, Reports shortness of breath with activity Gastrointestinal: Reports abdominal pain Musculoskeletal: Reports muscle weakness Psychiatric: Denies anxiety, Denies depression PMF - History History Provided By: Patient, Family Member (no fam hx pancreatitis; + unterine ca in mother), Medical Record (no family hx mental illness) - Medical History Medical History: Medical History (Last Reviewed 07/18/18 @ 08:24 by Lamar Vences) Hx of blood transfusion reaction Anxiety CKD (chronic kidney disease) stage 3, GFR 30-59 ml/min Encounter for gastrojejunal (GJ) tube placement GERD (gastroesophageal reflux disease) Hypertension Idiopathic pancreatitis Pancreatitis - Surgical History Surgical History: Surgical History (Last Reviewed 07/18/18 @ 08:24 by Lamar Vences) History of total left knee replacement (TKR) Hx of cholecystectomy S/P ERCP - Family History Family History: Family History (Last Reviewed 07/17/18 @ 20:27 by Whiteny Horta MD) Other Family history non-contributory - Tobacco History Second Hand Smoke Exposure: No Smoking Status: Never smoker - Alcohol History How Often Do You Have a Drink Containing Alcohol: Never - Substance Use History Substance History: No History of Abuse - Travel History Recent Travel in the [place] Within the Last 8 Weeks: No Recent Travel Out of the Country Within the Last 8 Weeks: No - Immunization History Tetanus Immunization: Unsure Hx Influenza Vaccine This Season: Yes Medications and Allergies Active Medications: Active Medications Hydrocodone Bitart/Acetaminophen ([place]oyd 5/325) 1 tab PO Q4H PRN PRN Reason: PAIN SCALE 1 TO 5 Last Admin: 07/18/18 04:16 Dose: 1 tab Al Hydroxide/Mg Hydroxide (Milk Of [place]) 30 ml PO QID PRN PRN Reason: Constipation Amlodipine Besylate (Norvasc) 5 mg PO DAILY [facility] Last Admin: 07/18/18 08:35 Dose: 5 mg Lipase/Protease/Amylase (Mando Kapoor ) 1 cap PO TIDPC [facility] Duloxetine HCl (Cymbalta) 20 mg PO DAILY [facility] Sodium Chloride (1/2 Normal Saline Inj) 1,000 mls @ 84 mls/hr IV.CONT .[id number] [facility] Last Infusion: 07/18/18 06:09 Dose: 84 mls/hr Metoprolol Tartrate (Lopressor) 25 mg PO BID [facility] Last Admin: 07/18/18 08:36 Dose: 25 mg Morphine Sulfate (Morphine Inj) 4 mg IV.PUSH Q4H PRN PRN Reason: PAIN SCALE 6 TO 10 Last Admin: 07/17/18 22:18 Dose: 4 mg Ondansetron HCl (Zofran Inj) 4 mg IV.PUSH Q6H PRN PRN Reason: NAUSEA OR VOMITING Pantoprazole Sodium (Protonix) 40 mg PO BID [facility] Last Admin: 07/18/18 08:35 Dose: 40 mg Prednisone (Deltasone) 10 mg PO DAILY [facility] Last Admin: 07/18/18 08:35 Dose: 10 mg Sodium Chloride (Ns Flush) 2 ml IV.FLUSH PRN PRN PRN Reason: FLUSH AFTER USING IV ACCESS Sodium Chloride (Ns Flush) 2 ml IV.FLUSH BID [facility] Last Admin: 07/18/18 08:36 Dose: Not Given Sodium Chloride (Ns Flush) 2 ml IV.FLUSH PRN PRN PRN Reason: FLUSH AFTER USING IV ACCESS Sterile Water (Free Water) 200 ml G-TUBE Q6HR [facility] Last Admin: 07/18/18 06:09 Dose: 200 ml Sucralfate (Carafate) 1 gm PO TID [facility] Last Admin: 07/18/18 08:35 Dose: 1 gm Ursodiol (Actigall) 300 mg PO BID [facility] Allergies Allergy/AdvReac Type Severity Reaction Status Date / Time No Known Allergies Allergy Unverified 05/16/18 07:25 Home Medications Medication Instructions Recorded Confirmed Type [id number] [Creon] 1 tab PO TIDPC 05/16/18 07/17/18 History magnesium hydroxide [[place]ley Milk 311 mg PO QID PRN 05/16/18 07/17/18 History of Magnesia] metoprolol tartrate 25 mg PO BID 05/16/18 07/17/18 History pantoprazole 40 mg PO BID 05/16/18 07/17/18 History sucralfate 1 g PO TID 05/16/18 07/17/18 History Advance Directives Living Will: No Physical Exam Vital Signs: Vital Signs - 24 hr 07/17/18 18:15 07/17/18 18:27 07/17/18 19:11 Temperature 98.3 F Pulse Rate 102 H 102 H 96 H Respiratory Rate 20 18 18 Blood Pressure 122/69 145/75 H 149/78 H Pulse Oximetry 99 98 96 07/17/18 22:48 07/17/18 23:00 07/18/18 04:00 Temperature 98.9 F 98.6 F Pulse Rate 92 H 87 82 Respiratory Rate 16 18 18 Blood Pressure 146/70 H 115/61 140/65 Pulse Oximetry 97 96 100 07/18/18 08:00 Temperature 98.7 F Pulse Rate 99 H Respiratory Rate 19 Blood Pressure 136/90 Pulse Oximetry 100 I&O: Intake & Output 07/16/18 07/17/18 07/18/18 07/19/18 06:59 06:59 06:59 06:59 Intake Total 1965 Balance 1965 Weight 64.1 kg Physical Exam: CONSTITUTIONAL/GENERAL: This is an adequately nourished patient, in no apparent distress. SKIN: No jaundice, rashes, or lesions. No wounds seen anteriorly. Skin temperature appropriate. Not diaphoretic. HEAD: Atraumatic. Normocephalic. EYES: Extraocular motions intact. No scleral icterus. No injection or drainage. Fundi not examined. ENT: Hearing grossly normal. Nose without bleeding or purulent drainage. CARDIOVASCULAR: RRR without murmurs, gallops, or rubs. No JVD. RESPIRATORY/CHEST: Symmetric, unlabored respirations. Clear to auscultation. Diminished. Respirations shallow. Breath sounds equal bilaterally. No wheezes, rales, or rhonchi. GASTROINTESTINAL: limited exam d/t pt guarding. Abdomen soft, tender to light palpation, nondistended.+ guarding. Bowel sounds present but faint. GENITOURINARY: Without palpable bladder distension. MUSCULOSKELETAL: Extremities without clubbing, cyanosis, or edema. No mottling or clubbing. NEUROLOGICAL: mildly lethargic. Motor and sensory grossly within normal limits. Follows commands. oriented x 4. selectively answers questions. Moves all extremities. PSYCHIATRIC: flat affect. No obvious anxiety/depression. no apparent hallucinations or other psychotic thought process. Diagnostic Tests Laboratory: Laboratory Results - last 72 hr 07/17/18 07/17/18 07/17/18 20:05 20:05 20:05 WBC RBC Hgb Hct MCV MCH MCHC RDW Plt Count MPV Prelim Diff (Auto) Neut % (Auto) Lymph % (Auto) [place] % (Auto) Eos % (Auto) Baso % (Auto) Neut # (Auto) Lymph # (Auto) [place] # (Auto) Eos # (Auto) Baso # (Auto) WBC Differential Differential Comment PT 11.9 H INR 1.2 APTT 33.1 H Sodium Potassium Chloride Carbon Dioxide Anion Gap BUN Creatinine Estimated GFR Random Glucose Lactic Acid 1.2 Calcium Magnesium Total Bilirubin AST ALT Alkaline Phosphatase Total Creatine Kinase Cancelled Troponin I Cancelled C-Reactive Protein Total Protein Albumin Triglycerides Lipase Urine Color Urine Clarity Urine pH Ur Specific [place] Urine Protein Urine Glucose (UA) Urine Ketones Urine Occult Blood Urine Nitrate Urine Bilirubin Urine Urobilinogen Ur Leukocyte Esterase Urine RBC Urine WBC Urine WBC Clumps Ur Squamous Epith Cells Ur Transition Epith Cell Ur Renal Epithelial Cell Urine Bacteria Urine Mucus Micro UA Comment Ur Microscopic Review Urine Culture Comments 07/17/18 07/17/18 07/17/18 20:05 20:05 20:05 WBC 26.1 H RBC 4.00 Hgb 11.4 L Hct 35.7 MCV 89.4 MCH 28.6 MCHC 32.0 RDW 18.2 H Plt Count 237 MPV 8.8 Prelim Diff (Auto) Neut % (Auto) 94.3 H Lymph % (Auto) 2.4 L [place] % (Auto) 2.2 Eos % (Auto) 0.7 Baso % (Auto) 0.4 Neut # (Auto) 24.7 H Lymph # (Auto) 0.6 L [place] # (Auto) 0.6 Eos # (Auto) 0.2 Baso # (Auto) 0.1 WBC Differential . Differential Comment Auto diff final PT INR APTT Sodium 137 Potassium 4.2 Chloride 100 Carbon Dioxide 24.6 Anion Gap 12 BUN 51 H Creatinine 3.33 H Estimated GFR 16 L Random Glucose 81 Lactic Acid Calcium 9.1 Cancelled Magnesium Total Bilirubin 0.6 AST 16 ALT 15 Alkaline Phosphatase 110 Total Creatine Kinase 32 Troponin I Less than 0.02 L C-Reactive Protein 43.00 H Cancelled Total Protein 7.7 D Albumin 2.5 L Triglycerides 168 H Cancelled Lipase 632 H Urine Color Urine Clarity Urine pH Ur Specific [place] Urine Protein Urine Glucose (UA) Urine Ketones Urine Occult Blood Urine Nitrate Urine Bilirubin Urine Urobilinogen Ur Leukocyte Esterase Urine RBC Urine WBC Urine WBC Clumps Ur Squamous Epith Cells Ur Transition Epith Cell Ur Renal Epithelial Cell Urine Bacteria Urine Mucus Micro UA Comment Ur Microscopic Review Urine Culture Comments 07/17/18 07/18/18 07/18/18 20:10 05:20 05:20 WBC 20.6 H RBC 3.17 L Hgb 9.0 L D Hct 28.0 L MCV 88.3 MCH 28.5 MCHC 32.3 RDW 17.8 H Plt Count 212 MPV 8.7 Prelim Diff (Auto) Manual diff required Neut % (Auto) Lymph % (Auto) [place] % (Auto) Eos % (Auto) Baso % (Auto) Neut # (Auto) Lymph # (Auto) [place] # (Auto) Eos # (Auto) Baso # (Auto) WBC Differential Differential Comment . PT INR APTT Sodium 139 Potassium 3.7 Chloride 104 Carbon Dioxide 22.0 Anion Gap 13 BUN 52 H Creatinine 3.28 H Estimated GFR 16 L Random Glucose 76 Lactic Acid Calcium 8.1 L D Magnesium 1.5 Total Bilirubin 0.5 AST 9 L ALT 11 Alkaline Phosphatase 87 Total Creatine Kinase Troponin I C-Reactive Protein Total Protein 6.4 D Albumin 2.0 L Triglycerides Lipase 396 H Urine Color Yellow Urine Clarity Hazy H Urine pH 6.0 Ur Specific [place] 1.010 Urine Protein 100 H Urine Glucose (UA) Negative Urine Ketones Negative Urine Occult Blood Moderate H Urine Nitrate Negative Urine Bilirubin Negative Urine Urobilinogen Less than 2 Ur Leukocyte Esterase Large H Urine RBC 68 H Urine WBC 176 H Urine WBC Clumps Many H Ur Squamous Epith Cells 3 Ur Transition Epith Cell 1 Ur Renal Epithelial Cell 1 Urine Bacteria Few H Urine Mucus Few H Micro UA Comment Cath-culture ind Ur Microscopic Review Not Reportable Urine Culture Comments Cath-cult indicated Result Diagrams: 07/19/18 06:23 07/19/18 06:23 Imaging: ITS Impressions Chest X-Ray 07/17/18 19:53 CONCLUSION: Slight worsening right lung base atelectasis. Abdomen/Pelvis CT 07/17/18 19:55 CONCLUSION: Stable examination not significantly changed. Patient/Family Conference Present at Family Conference: dahugh Howard Family Conference Time: 15 Family Conference Location: Telephone Issues Discussed: d/w granddahugh Howard: * Palliative care role, purpose, approach * Additional medical history * Patients general health, functional status, and cognitive changes in the months leading up to the current hospitalization * family understanding of the current medical problems * Current medical treatment options and benefits/burdens of those options * Likely scenarios comparing ongoing aggressive care with a transition to comfort measures only - introduced hospice * Questions answered to the best of my ability * Palliative care contact information provided d/w daughter and proxy Caitlyn -Palliative care role, purpose, approach -Additional medical, psychosocial, and spiritual history -Patients general health, function, cognition in the months before current hospitalization -family understanding of the current medical problems -family understanding of prognosis -Patients goals of care as best understood from conversations - pt has previously expressed that she would want everything done to save her -Current medical treatment options and their benefits/burdens -Likely scenarios comparing ongoing aggressive care with transition to ``comfort -measures only- introduced hospice -Legal decision makers/HCS reviewed - CODE STATUS, benefits/burdens/limitations of CPR, intubation, and mechanical ventilation - full code -Questions answered to the best of my ability - Palliative care contact information provided Goals aggressive for now but somewhat conflicted. Daughter feels control of abd pain is priority and feels her mom could get better if she could "just eat and get her nutrition better." Eats little d/t intermittent abd pain. Daughter wants pt to be able to stay at home. As of now wants rehab. Introduced hospice , she was tearful and not ready for that. Pt oriented but has poor insight into her medical status and poor recall. Assessment and Plan Pertinent Non-Medical Issues: Psychosocial: Pt is retired. Lives locally with her daughter. Spiritual: [employer], declines pastoral care. Legal: Pt not clearly capacitated to make medical decisions. per [place] statutes proxy decision making falls to her surviving daughter. Ethical issues impacting care: none Important Contacts: Daughter Caitlyn Perez [phone] Granddaughter Anita Albert [phone] Prognosis: 82 yo female with hx chronic idiopathic pancreatitis, CKD admitted for abd pain. She has a GJ. She has had weight loss, limited PO intake, difficulty tolerating TF. Seems to have chronic abd pain. She has declined in the recent months and this decline is more marked after her fall 2 weeks ago. SHe will likely continue to decline. Unlikely to benefit much from rehab given poor nutrition status. She is at risk for further complications and setbacks. SHe may be hospice appropriate if family's goals were in line with comfort. Code Status: Full Code Plan: - LEGAL DECISON MAKER - Pt not clearly incapacitated to make medical decisions. Per [place] statutes proxy decision making. The patient's surviving daughter , Caitlyn. - CODE STATUS- full code - GOALS - Goals aggressive for now but somewhat conflicted. Daughter feels control of abd pain is priority and feels her mom could get better if she could "just eat and get her nutrition better." Eats little d/t intermittent abd pain. Daughter wants pt to be able to stay at home. As of now wants rehab. Introduced hospice, she was tearful and not ready for that. She will discuss with her mother. Pt oriented but has poor insight into her medical status and poor recall. - SYMPTOMS - * pain - multifactorial, acute and chronic. pt with chronic idiopathic pancreatitis, recently developed a bedsore. On my evaluation her abdomen is tender to light palpation and she is guarding and will not let me inspect or palpate further. Pain 8/10, constant, burning . She says that the pain medication she is being given does help her. She has morphine 4 mg as needed every 4 H last had yesterday 20/200, Floyd 5/325 every 4 hours as needed last had this morning at 4:00. on ursodiol and creon per GI. consider GI consult. Consider a scheduled pain medication. No other recommendations at this time * debility -multifactorial. Patient has had some weight loss and some physical decline since a fall 2 weeks ago. She has poor p.o. intake mostly 2/2 fear of abdominal pain. She gets tube feedings via GJ but this gives her diarrhea per family. albumin 2.0 today. unlikely she would do well with rehab given decline and poor nutrition status. PT following. introduced hospice. - Palliative care will continue to follow during hospital course as condition evolves, to assist patient/decision-maker with understanding of medical conditions, weighing benefits/burdens of treatment options, for clarification of goals of treatment. Additionally will assist with any symptoms of palliative concern Appreciation Thank you for the opportunity to participate in the care of Park Larsen.
--- NOTE | 2018-07-18 10:07 | P.DIET ---
Nutritional Evaluation Type of nutrition evaluation: initial Nutrition consult regarding: Tube Feeding Objective - Diagnosis Dehydration, WAYNE, Pancreatitis - Objective [place] body weight: 61 kg % IBW: 105 Body Weight Used for Calculations: Actual (64.1kg) Energy Needs - Lower Range (kCal/kg): 25 Energy Needs - Upper Range (kCal/kg): 30 Lower Limit kCal/kg (kCals): 1,603 Upper Limit kCal/kg (kCals): 1,923 Lower Limit Protein Factor (Grams per Kg): 0.8 Upper Limit Protein Factor (Grams per Kg): 1.2 Lower Protein Needs (Protein): 51 Upper Protein Needs (Protein): 77 Fluid Factor (ml/kg): 25 Estimated Fluid Needs (ml): 1,603 Dietitian Reviewed in Medical Record: Current diet, Curent medications, Intake & Output, Labs, Medical history, Tube feeding Diet Order: TF only Objective Comments: PMH: CKD Stage III, GERD, HTN, Pancreatitis, G/J tube placement Meds include: Creon, Cymbalta, Prednisone Labs include: WBC 20.6, Hgb 9.0, Hct 28.0, Cr 3.28, GFR 16, Ca 8.1, Lipase 396 Last BM 07/15/18 Assessment Assessment: Pt at nutritional risk r/t need for a TF for nutrition support. Pt admitted with dehydration, WAYNE, Pancreatitis. Nutritional needs as assessed above. Pt has G/J tube placed. Current TF per MD is for Nepro with goal rate 45 ml/hr. To best meet pt's nutritional needs, recommend goal rate 40 ml/hr to provide 1728kcals, 78gms protein and 698mls free water. Will monitor TF tolerance, clinical course. Recommendations: TF Nepro, recommend goal rate of 40ml/hr Dietitian to Monitor: Lab values, Renal labs, Intake & Output, Tube feeding tolerance, Weight change, Medical course
--- NOTE | 2018-07-18 10:09 | P.HPIM ---
History of Present Illness Service: - Ms. Larsen is an 82 y/o AAF with recurrent idiopathic pancreatitis. She has been hospitalized numerous times for issues with pain control related to recurrent pancreatitis. Her last admission was from 03/03/18 to 03/28/18 and she had biliary obstruction at that time. - During that admission she underwent evaluation with ERCP (03/03/18) which noted multiple stones, migrated metal stent up into CBD, could not put plastic stent due to "kink" in current stent according to GI notes. She required PTC placement on 03/04 by IR which noted severe obstruction of the proximal common bile duct stent with very challenging recanalization requiring multiple wires and catheters. biliary stent placement. She had to have a repeat ERCP (03/07/18) and had to have the metal stent cleared of debris and they were able to confirm complete clearance of the stent with good emptying through the stent. She had a percutaneous cholangiogram on 03/09/18 where the external portion of biliary drain was removed and the report showed some small hyperplasia within the distal aspect of the biliary stent but there is a patent channel down to the small bowel. -s/p ercp 05/23 with balloon sweep of stone fragments/debris from metal stent and placement of new stent - GJ tube exchange 710 with IR -mesenteric angio with IR 05/24. patent vessels. - Pt presented back to the ED at [facility] on 06/29/18 with continued abdominal pain that is similar to her previous pancreatitis pain. - Her labs in the ED revealed WBC count 30.1, Cr 5.57 /BUN 73, Lipase 234, TBili 0.3, AST 15, ALT 11, AlkPhos 139. Abdomen/Pelvis CT 06/29/18 reveals: 1. Biliary stent with interval Silastic stent. Air in the left hepatic ducts. 2. I don't see an etiology for the patient's right-sided abdominal pain. Lack of intravenous and oral contrast makes detection of subtle abnormalities difficult 3. Inflammatory processes such as pyonephritis cannot be excluded. GI Procedure 06/30/18 with IR An ERCP was performed by the ordering physician. The images demonstrate a metallic stent in the mid and distal common bile duct. The stent is traversed with a guidewire which extends into the intrahepatic bile ducts. The final image demonstrates a plastic stent within the metallic stent. The intrahepatic bile ducts do not appear to be significantly dilated Pt presents with her typical abdomen pain and dehydration with a/ckd. Primary Care Physician: Hong Peterson MD - Diagnosis (1) Idiopathic pancreatitis (2) Acute on chronic kidney failure (3) HTN (hypertension) Inpatient Certification: I certify that the inpatient services were ordered in accordance with Medicare regulations governing the order. This includes certification that hospital inpatient services are reasonable and necessary and in the case of services not specified as inpatient-only under 42 CFR 419.22(n), that they are appropriately provided as inpatient services in accordance to with the 2-midnight benchmark under 43 CFR 412.3(e) Estimated Total Length of Stay (Days): 3 Plans for Post Hospital Care: Not yet determined Review of Systems abdomen pain PMFSH - History History Provided By: Patient - Medical History Medical History: Medical History (Last Reviewed 07/30/18 @ 09:56 by Laila Gonzalez PT) Anxiety CKD (chronic kidney disease) stage 3, GFR 30-59 ml/min Encounter for gastrojejunal (GJ) tube placement GERD (gastroesophageal reflux disease) Hx of blood transfusion reaction Hypertension Idiopathic pancreatitis Pancreatitis - Surgical History Surgical History: Surgical History (Last Reviewed 07/30/18 @ 09:56 by Laila Gonzalez, PT) History of total left knee replacement (TKR) Hx of cholecystectomy S/P ERCP - Family History Family History: Family History (Last Reviewed 07/30/18 @ 09:56 by Laila Gonzalez PT) Other Family history non-contributory - Tobacco History Second Hand Smoke Exposure: No Smoking Status: Never smoker - Alcohol History How Often Do You Have a Drink Containing Alcohol: Never - Substance Use History Substance History: No History of Abuse - Travel History Recent Travel in the [place] Within the Last 8 Weeks: No Recent Travel Out of the Country Within the Last 8 Weeks: No - Immunization History Tetanus Immunization: Unsure Hx Influenza Vaccine This Season: Yes Medications and Allergies Active Medications: Active Medications Hydrocodone Bitart/Acetaminophen ([place] 5/325) 1 tab PO Q4H PRN PRN Reason: PAIN SCALE 1 TO 5 Last Admin: 07/18/18 04:16 Dose: 1 tab Al Hydroxide/Mg Hydroxide (Milk Of Magnveena Liq) 30 ml PO QID PRN PRN Reason: Constipation Amlodipine Besylate (Norvasc) 5 mg PO DAILY [facility] Last Admin: 07/18/18 08:35 Dose: 5 mg Lipase/Protease/Amylase (Mando Kapoor ) 1 cap PO TIDPC [facility] Duloxetine HCl (Cymbalta) 20 mg PO DAILY [facility] Sodium Chloride (1/2 Normal Saline Inj) 1,000 mls @ 84 mls/hr IV.CONT .[id number] [facility] Last Infusion: 07/18/18 06:09 Dose: 84 mls/hr Metoprolol Tartrate (Lopressor) 25 mg PO BID [facility] Last Admin: 07/18/18 08:36 Dose: 25 mg Morphine Sulfate (Morphine Inj) 4 mg IV.PUSH Q4H PRN PRN Reason: PAIN SCALE 6 TO 10 Last Admin: 07/17/18 22:18 Dose: 4 mg Ondansetron HCl (Zofran Inj) 4 mg IV.PUSH Q6H PRN PRN Reason: NAUSEA OR VOMITING Pantoprazole Sodium (Protonix) 40 mg PO BID [facility] Last Admin: 07/18/18 08:35 Dose: 40 mg Prednisone (Deltasone) 10 mg PO DAILY [facility] Last Admin: 07/18/18 08:35 Dose: 10 mg Sodium Chloride (Ns Flush) 2 ml IV.FLUSH PRN PRN PRN Reason: FLUSH AFTER USING IV ACCESS Sodium Chloride (Ns Flush) 2 ml IV.FLUSH BID [facility] Last Admin: 07/18/18 08:36 Dose: Not Given Sodium Chloride (Ns Flush) 2 ml IV.FLUSH PRN PRN PRN Reason: FLUSH AFTER USING IV ACCESS Sterile Water (Free Water) 200 ml G-TUBE Q6HR [facility] Last Admin: 07/18/18 06:09 Dose: 200 ml Sucralfate (Carafate) 1 gm PO TID [facility] Last Admin: 07/18/18 08:35 Dose: 1 gm Ursodiol (Actigall) 300 mg PO BID [facility] Allergies Allergy/AdvReac Type Severity Reaction Status Date / Time No Known Allergies Allergy Unverified 05/16/18 07:25 Home Medications Medication Instructions Recorded Confirmed Type [id number] [Creon] 1 tab PO TIDPC 05/16/18 07/30/18 History magnesium hydroxide [Presley Milk 311 mg PO QID PRN 05/16/18 07/30/18 History of Magnesia] metoprolol tartrate 25 mg PO BID 05/16/18 07/30/18 History pantoprazole 40 mg PO BID 05/16/18 07/30/18 History sucralfate 1 g PO TID 05/16/18 07/30/18 History Exam Vital signs: Vital Signs 07/17/18 18:15 07/17/18 18:27 07/17/18 19:11 Temperature 98.3 F Pulse Rate 102 H 102 H 96 H Respiratory Rate 20 18 18 Blood Pressure 122/69 145/75 H 149/78 H Pulse Oximetry 99 98 96 07/17/18 22:48 07/17/18 23:00 07/18/18 04:00 Temperature 98.9 F 98.6 F Pulse Rate 92 H 87 82 Respiratory Rate 16 18 18 Blood Pressure 146/70 H 115/61 140/65 Pulse Oximetry 97 96 100 07/18/18 08:00 Temperature 98.7 F Pulse Rate 99 H Respiratory Rate 19 Blood Pressure 136/90 Pulse Oximetry 100 Intake & Output 07/17/18 07/18/18 07/18/18 18:59 06:59 18:59 Intake Total 1965 Balance 1965 Weight 50 kg 64.1 kg Intake: IV 1965 NS Inj 1,000 ML @ 125 mls/hr IV 1000 / 1000 .CONT .Q8H [facility] Rx#:[id number] 1/2 Normal Saline Inj 1,000 ML 616 / 616 @ 84 mls/hr IV.CONT .[id number] [facility] Rx#:[id number] Maxipime Inj 2,000 MG In NS Inj 100 / 100 100 ML @ 200 mls/hr IV.SIG STAT STA Rx#:[id number] Vancomycin Inj 1,000 MG In NS 250 / 250 Inj 250 ML @ 250 mls/hr IV.SIG STAT STA Rx#:[id number] Oral 0 / 0 Other: # Voids 1 Date of Last Bowel Movement 07/15/18 07/15/18 Weight On Admission 50 kg heart reg lung cta abd s/nt ext no edema Results - Labs CBC & Chem 7: 07/19/18 06:23 07/24/18 05:05 Labs: Short CBC 07/17/18 07/18/18 Range/Units 20:05 05:20 WBC 26.1 H 20.6 H (4.0-11.0) th/mm3 Hgb 11.4 L 9.0 L D (11.6-15.3) gm/dL Hct 35.7 28.0 L (35.0-46.0) % Plt Count 237 212 (150-450) th/mm3 BMP 07/17/18 07/17/18 07/18/18 20:05 20:05 05:20 Sodium 137 139 Potassium 4.2 3.7 Chloride 100 104 Carbon Dioxide 24.6 22.0 BUN 51 H 52 H Creatinine 3.33 H 3.28 H Calcium 9.1 Cancelled 8.1 L D Cardiac Enzymes 07/17/18 07/17/18 Range/Units 20:05 20:05 Total Creatine Kinase Cancelled 32 Troponin I Cancelled Less than 0.02 L Liver Function 07/17/18 07/18/18 Range/Units 20:05 05:20 Total Bilirubin 0.6 0.5 (0.2-1.0) mg/dL AST 16 9 L (15-37) U/L ALT 15 11 (10-53) U/L Alkaline Phosphatase 110 87 (45-117) U/L Albumin 2.5 L 2.0 L (3.4-5.0) g/dL Urine 07/17/18 Range/Units 20:10 Urine Color Yellow (Yellw/Straw) Urine Clarity Hazy H (Clear) Urine pH 6.0 (5.0-8.5) Ur Specific [place] 1.010 (1.002-1.035) Urine Protein 100 H (Neg-Trace) mg/dL Urine Glucose (UA) Negative (Negative) mg/dL - Imaging Impressions Chest X-Ray 07/17/18 19:53 CONCLUSION: Slight worsening right lung base atelectasis. Abdomen/Pelvis CT 07/17/18 19:55 CONCLUSION: Stable examination not significantly changed. Caprini VTE Risk Assessment Caprini VTE Risk Assessment: Moderate/High Risk (score >= 2) Caprini Risk Assessment Model: Point Value = 1 Point Value = 2 Point Value = 3 Point Value = 5 Age 41-60 Minor surgery BMI > 25 kg/m2 Swollen legs Varicose veins or History of unexplained or recurrent spontaneous Oral contraceptives or hormone replacement Sepsis (< 1 month) Serious lung disease, including pneumonia (< 1 month) Abnormal pulmonary function Acute myocardial infarction Congestive heart failure (< 1 month) History of inflammatory bowel disease Medical patient at bed rest Age 61-74 Arthroscopic surgery Major open surgery (> 45 min) Laparoscopic surgery (> 45 min) Malignancy Confined to bed (> 72 hours) Immobilizing plaster cast Central venous access Age >= 75 History of VTE Family history of VTE Factor V Leiden Prothrombin [id number] Lupus anticoagulant Anticardiolipin antibodies Elevated serum homocysteine Heparin-induced thrombocytopenia Other congenital or acquired thrombophilia Stroke (< 1 month) Elective arthroplasty Hip, pelvis, or leg fracture Acute spinal cord injury (< 1 month) Prophylaxis Regimen: Total Risk Factor Score Risk Level Prophylaxis Regimen 0-1 Low Early ambulation 2 Moderate Order ONE of the following: *Sequential Compression Device (SCD) *Heparin 5000 units SQ BID 3-4 Higher Order ONE of the following medications: *Heparin 5000 units SQ TID *Enoxaparin/Lovenox 40 mg SQ daily (WT < 150 kg, CrCl > 30 mL/min) *Enoxaparin/Lovenox 30 mg SQ daily (WT < 150 kg, CrCl > 10-29 mL/min) *Enoxaparin/Lovenox 30 mg SQ BID (WT < 150 kg, CrCl > 30 mL/min) AND/OR *Sequential Compression Device (SCD) 5 or more Highest Order ONE of the following medications: *Heparin 5000 units SQ TID (Preferred with Epidurals) *Enoxaparin/Lovenox 40 mg SQ daily (WT < 150 kg, CrCl > 30 mL/min) *Enoxaparin/Lovenox 30 mg SQ daily (WT < 150 kg, CrCl > 10-29 mL/min) *Enoxaparin/Lovenox 30 mg SQ BID (WT < 150 kg, CrCl > 30 mL/min) AND *Sequential Compression Device (SCD) Assessment and Plan - Assessment (1) Idiopathic pancreatitis Code(s): K85.00 - Idiopathic acute pancreatitis without necrosis or infection Status: Acute Plan: (1) Idiopathic pancreatitis - Ms. Larsen is an 82 y/o AAF with recurrent idiopathic pancreatitis. She has been hospitalized numerous times for issues with pain control related to recurrent pancreatitis. Her last admission was from 03/03/18 to 03/28/18 and she had biliary obstruction at that time. - During that admission she underwent evaluation with ERCP (03/03/18) which noted multiple stones, migrated metal stent up into CBD, could not put plastic stent due to "kink" in current stent according to GI notes. She required PTC placement on 03/04 by IR which noted severe obstruction of the proximal common bile duct stent with very challenging recanalization requiring multiple wires and catheters. biliary stent placement. She had to have a repeat ERCP (03/07/18) and had to have the metal stent cleared of debris and they were able to confirm complete clearance of the stent with good emptying through the stent. She had a percutaneous cholangiogram on 03/09/18 where the external portion of biliary drain was removed and the report showed some small hyperplasia within the distal aspect of the biliary stent but there is a patent channel down to the small bowel. -s/p ercp 05/23 with balloon sweep of stone fragments/debris from metal stent and placement of new stent - GJ tube exchange 710 with IR -mesenteric angio with IR 05/24. patent vessels. -Abdomen/Pelvis CT 06/29/18 reveals: 1. Biliary stent with interval Silastic stent. Air in the left hepatic ducts. 2. I don't see an etiology for the patient's right-sided abdominal pain. Lack of intravenous and oral contrast makes detection of subtle abnormalities difficult 3. . Inflammatory processes such as pyonephritis cannot be excluded. GI Procedure 06/30/18 with IR An ERCP was performed by the ordering physician. The images demonstrate a metallic stent in the mid and distal common bile duct. The stent is traversed with a guidewire which extends into the intrahepatic bile ducts. The final image demonstrates a plastic stent within the metallic stent. The intrahepatic bile ducts do not appear to be significantly dilated -Presents back to ED with her typical abdome pain and a/ckd 3 from dehydration -PRN pain meds. -resumed tube feeding. - cont liquid diet - daily PT - cont IVF (2) Acute on chronic kidney failure Code(s): N17.9 - Acute kidney failure, unspecified; N18.9 - Chronic kidney disease, unspecified Status: Acute (3) HTN (hypertension) Code(s): I10 - Essential (primary) hypertension Status: Chronic H&P: Quality - VTE Deep Vein Thrombosis/Pulmonary Embolism Present on Admission: No (1) Idiopathic pancreatitis Qualifiers: (2) Acute on chronic kidney failure Qualifiers: Acute renal failure type: unspecified Chronic kidney disease stage: unspecified stage Qualified Code(s): N17.9 - Acute kidney failure, unspecified ; N18.9 - Chronic kidney disease, unspecified
[2018-07-18 10:30] LABS: Eosinophils 2 % (0-4); Lymphocytes 5 % (9-44); Monocytes 2 % (0-8)
[2018-07-18 10:31] LABS: Platelet Estimate Normal (Normal); Platelet Morphology Normal (Normal)
[2018-07-18] MEDS: Sodium Chloride 0.45 % Inj 1,000 ML IV.CONT SCH ×2 (12:07→21:49)
[2018-07-18] MEDS: Lipase/Protease/Amylase 12/38/60 DR Capsule PO SCH ×3 (12:07→19:36)
--- NOTE | 2018-07-18 13:00 | ECG ---
Date Performed: 07/17/2018 Time Performed: 20:31:10 PTAGE: 82 years EKG: SINUS TACHYCARDIA WITH SHORT CA INTERVAL POSSIBLE RIGHT ATRIAL ENLARGEMENT POSSIBLE LEFT AT RIAL ENLARGEMENT NONSPECIFIC ST & T-WAVE ABNORMALITY ABNORMAL ECG The anterior T-wave changes are sli ghtly increased compared to the prior tracing, but there lateral ST depression is less pronounced. Se rial changes are nonspecific but myocardial ischemia should be excluded. PREVIOUS TRACING : 06/29/2018 20.33 DOCTOR: Pili Masters Interpretating Date/Time 07/18/2018 12:58:57
[2018-07-19 07:08] LABS: Baso # (Auto) 0.1 th/mm3 (0.0-0.2); Baso % (Auto) 0.4 % (0.0-2.0); Eos # (Auto) 0.2 th/mm3 (0.0-0.4); Eos % (Auto) 1.4 % (0.0-4.0); Hematocrit 29.3 % (35.0-46.0); Hemoglobin 9.4 gm/dL (11.6-15.3); Lymph # (Auto) 1.3 th/mm3 (1.0-4.8); Lymph % (Auto) 8.9 % (9.0-44.0); Mean Corpuscular Hemoglobin 28.4 pg (27.0-34.0); Mean Corpuscular Volume 88.8 fL (80.0-100.0); Mean Platelet Volume 8.5 fL (7.0-11.0); Mono # (Auto) 0.3 th/mm3 (0.0-0.9); Mono % (Auto) 2.4 % (0.0-8.0); Neut # (Auto) 12.2 th/mm3 (1.8-7.7); Neut % (Auto) 86.9 % (16.0-70.0); Platelet Count 246 th/mm3 (150-450); Red Cell Distribution Width 17.7 % (11.6-17.2)
[2018-07-19 07:34] LABS: Calcium 8.3 mg/dL (8.5-10.1); Carbon Dioxide 24.1 meq/L (21.0-32.0); Potassium 3.6 meq/L (3.5-5.1)
[2018-07-19] MEDS: amLODIPine 5 MG Tablet PO SCH (08:21)
[2018-07-19] MEDS: Metoprolol Tartrate 25 MG Tablet PO SCH ×2 (08:21→20:25)
[2018-07-19] MEDS: predniSONE 10 MG Tablet PO SCH (08:21)
[2018-07-19] MEDS: Sucralfate 1 GM Tablet PO SCH ×3 (08:21→18:06)
--- NOTE | 2018-07-19 08:55 | P.PNIM ---
Subjective Interval history: pt not interested in getting oob to participate. no apparent distress when I arrived. Started c/o abdomen pain when I suggested physical activity. Physical Exam Vital signs: Vital Signs 07/18/18 12:00 07/18/18 16:00 07/18/18 20:00 Temperature 98.9 F 98.4 F 98.3 F Pulse Rate 89 94 H 94 H Respiratory Rate 18 18 16 Blood Pressure 135/64 126/69 131/69 Pulse Oximetry 99 99 98 07/18/18 20:20 07/19/18 00:00 07/19/18 00:15 Temperature 98 F Pulse Rate 91 H 92 H 90 Respiratory Rate 16 Blood Pressure 114/56 L Pulse Oximetry 98 07/19/18 04:00 07/19/18 08:00 Temperature 97.5 F L 98.1 F Pulse Rate 97 H 100 H Respiratory Rate 20 18 Blood Pressure 144/70 H 138/65 Pulse Oximetry 99 97 Intake & Output 07/18/18 07/19/18 07/19/18 18:59 06:59 18:59 Intake Total 584 / 584 620 / 620 Balance 584 / 584 620 / 620 Intake: IV 384 / 384 1/2 Normal Saline Inj 1,000 ML 384 / 384 @ 84 mls/hr IV.CONT .[id number] [facility] Rx#:[id number] Oral 200 / 200 Tube Feeding 320 / 320 Water Bolus Amount 300 / 300 Other: # Voids 3 1 Date of Last Bowel Movement 07/15/18 07/15/18 # Bowel Movements 1 heart reg lung cta abd s/nt. gj tube ext no edema - Urinary Catheter Management Straight Cath placed during this visit: yes Reason for continuing: Not indwelling catheter Insertion date: 07/17/18 Insertion time: 20:10 Results - Labs CBC & Chem 7: 07/19/18 06:23 07/19/18 06:23 Laboratory Results - last 24 hr 07/18/18 07/19/18 07/19/18 05:20 06:23 06:23 WBC 14.0 H RBC 3.30 L Hgb 9.4 L Hct 29.3 L MCV 88.8 MCH 28.4 MCHC 32.0 RDW 17.7 H Plt Count 246 MPV 8.5 Neut % (Auto) 86.9 H Lymph % (Auto) 8.9 L Burke % (Auto) 2.4 Eos % (Auto) 1.4 Baso % (Auto) 0.4 Neut # (Auto) 12.2 H Lymph # (Auto) 1.3 Burke # (Auto) 0.3 Eos # (Auto) 0.2 Baso # (Auto) 0.1 WBC Differential Manual diff final . Seg Neuts % (Manual) 87 H Band Neuts % (Manual) 4 Lymphocytes % (Manual) 5 L Monocytes % (Manual) 2 Eosinophils % (Manual) 2 Abs Neuts (Manual) 18.7 H Differential Comment Auto diff final Platelet Estimate Normal Platelet Morphology Normal Sodium 138 Potassium 3.6 Chloride 103 Carbon Dioxide 24.1 Anion Gap 11 BUN 56 H Creatinine 3.83 H Estimated GFR 14 L Random Glucose 130 H Calcium 8.3 L Microbiology 07/17/18 21:50 Blood - Peripheral Aerobic Blood Culture - Preliminary No growth in 1 day 07/17/18 21:50 Blood - Peripheral Anaerobic Blood Culture - Preliminary No growth in 1 day 07/17/18 21:45 Blood - Peripheral Aerobic Blood Culture - Preliminary No growth in 1 day 07/17/18 21:45 Blood - Peripheral Anaerobic Blood Culture - Preliminary No growth in 1 day 07/17/18 20:10 Catheterized Urine Urine Culture - Preliminary No growth. Assessment and Plan - Assessment (1) Abdominal pain Code(s): R10.9 - Unspecified abdominal pain Status: Acute Plan: Assessment and Plan (1) Idiopathic pancreatitis - Ms. Larsen is an 82 y/o AAF with recurrent idiopathic pancreatitis. She has been hospitalized numerous times for issues with pain control related to recurrent pancreatitis. Her last admission was from 03/03/18 to 03/28/18 and she had biliary obstruction at that time. - During that admission she underwent evaluation with ERCP (03/03/18) which noted multiple stones, migrated metal stent up into CBD, could not put plastic stent due to "kink" in current stent according to GI notes. She required PTC placement on 03/04 by IR which noted severe obstruction of the proximal common bile duct stent with very challenging recanalization requiring multiple wires and catheters. biliary stent placement. She had to have a repeat ERCP (03/07/18) and had to have the metal stent cleared of debris and they were able to confirm complete clearance of the stent with good emptying through the stent. She had a percutaneous cholangiogram on 03/09/18 where the external portion of biliary drain was removed and the report showed some small hyperplasia within the distal aspect of the biliary stent but there is a patent channel down to the small bowel. -s/p ercp 05/23 with balloon sweep of stone fragments/debris from metal stent and placement of new stent - GJ tube exchange 05/24 with IR -mesenteric angio with IR 05/24. patent vessels. - Pt presented back to the ED at [facility] on 06/29/18 with continued abdominal pain that is similar to her previous pancreatitis pain. - Her labs in the ED revealed WBC count 30.1, Cr 5.57 /BUN 73, Lipase 234, TBili 0.3, AST 15, ALT 11, AlkPhos 139. Abdomen/Pelvis CT 06/29/18 reveals: 1. Biliary stent with interval Silastic stent. Air in the left hepatic ducts. 2. I don't see an etiology for the patient's right-sided abdominal pain. Lack of intravenous and oral contrast makes detection of subtle abnormalities difficult 3. Inflammatory processes such as pyonephritis cannot be excluded. GI Procedure 06/30/18 with IR An ERCP was performed by the ordering physician. The images demonstrate a metallic stent in the mid and distal common bile duct. The stent is traversed with a guidewire which extends into the intrahepatic bile ducts. The final image demonstrates a plastic stent within the metallic stent. The intrahepatic bile ducts do not appear to be significantly dilated - Pt underwent exchange of G/J tube 07/11/18 She was discharged and now readmitted again in less than a week at home with recurrent abdomen pain. She again is noted to have a/ckd 3 Her tube feeds had been stopped but are now back to goal we are increasing her ivf due to ramón She is getting prn pain control PT daily to sustain her physical strength. Acute on chronic kidney failure - Pt with baseline stage 3 CKD, pt follows with Dr. Melara -see above HTN (hypertension) - Cont. home meds - Monitor GERD (gastroesophageal reflux disease) - PPI (2) Acute on chronic kidney failure Code(s): N17.9 - Acute kidney failure, unspecified; N18.9 - Chronic kidney disease, unspecified Status: Acute (3) Idiopathic pancreatitis Code(s): K85.00 - Idiopathic acute pancreatitis without necrosis or infection Status: Acute (4) HTN (hypertension) Code(s): I10 - Essential (primary) hypertension Status: Chronic (2) Acute on chronic kidney failure Qualifiers: Acute renal failure type: unspecified Chronic kidney disease stage: unspecified stage Qualified Code(s): N17.9 - Acute kidney failure, unspecified ; N18.9 - Chronic kidney disease, unspecified (3) Idiopathic pancreatitis Qualifiers: Chronicity: acute Acute pancreatitis complication: unspecified Qualified Code(s): K85.00 - Idiopathic acute pancreatitis without necrosis or infection
[2018-07-19] MEDS: Sod Chloride 0.9% Inj 1,000 ML IV.CONT SCH ×2 (09:24→13:10)
[2018-07-19] MEDS: Lipase/Protease/Amylase 12/38/60 DR Capsule PO SCH ×3 (09:24→18:06)
--- NOTE | 2018-07-19 11:16 | P.PNPAL ---
Reason for Visit Reason for visit: a. To assist with evaluation and management of symptoms including: pain, debility b. To assist medical decision maker(s) with: better understanding of current medical conditions; weighing benefits/burdens of medical treatment options; making medical treatment decisions. Subjective Subjective/Interval History: Pt resting in bed, asleep. Mult containers water and applejuice at bedside. On waking she complains of abd pain, 8/10, becomes tearful. She does not know when she last had her pain med. She says she did drink some juice today and it did not exacerbate her pain. She did not want to participate in therapy today d /t pain. TF running at goal rate. Family/Friend Interactions: Attempted to contact Caitlyn but no answer and mailbox full. Objective Vital Signs: Vital Signs 07/18/18 12:00 07/18/18 16:00 07/18/18 20:00 Temperature 98.9 F 98.4 F 98.3 F Pulse Rate 89 94 H 94 H Respiratory Rate 18 18 16 Blood Pressure 135/64 126/69 131/69 Pulse Oximetry 99 99 98 07/18/18 20:20 07/19/18 00:00 07/19/18 00:15 Temperature 98 F Pulse Rate 91 H 92 H 90 Respiratory Rate 16 Blood Pressure 114/56 L Pulse Oximetry 98 07/19/18 04:00 07/19/18 08:00 Temperature 97.5 F L 98.1 F Pulse Rate 97 H 100 H Respiratory Rate 20 18 Blood Pressure 144/70 H 138/65 Pulse Oximetry 99 97 Intake & Output 07/18/18 07/19/18 07/19/18 18:59 06:59 18:59 Intake Total 584 / 584 620 / 620 Balance 584 / 584 620 / 620 Intake: IV 384 / 384 1/2 Normal Saline Inj 1,000 ML 384 / 384 @ 84 mls/hr IV.CONT .[id number] [facility] Rx#:[id number] Oral 200 / 200 Tube Feeding 320 / 320 Water Bolus Amount 300 / 300 Other: # Voids 3 1 Date of Last Bowel Movement 07/15/18 07/15/18 07/19/18 # Bowel Movements 1 Physical Exam: CONSTITUTIONAL/GENERAL: This is an adequately nourished patient, in no apparent distress. SKIN: No jaundice, rashes, or lesions. No wounds seen anteriorly. Skin temperature appropriate. Not diaphoretic. HEAD: Atraumatic. Normocephalic. EYES: Extraocular motions intact. No scleral icterus. No injection or drainage. Fundi not examined. ENT: Hearing grossly normal. Nose without bleeding or purulent drainage. CARDIOVASCULAR: RRR without murmurs, gallops, or rubs. No JVD. RESPIRATORY/CHEST: Symmetric, unlabored respirations. Clear to auscultation. Diminished. Respirations shallow. Breath sounds equal bilaterally. No wheezes, rales, or rhonchi. GASTROINTESTINAL:abd soft, TTP epigastrium. +GJ tube, TF infusing. BS + GENITOURINARY: Without palpable bladder distension. MUSCULOSKELETAL: Extremities without clubbing, cyanosis, or edema. No mottling or clubbing. NEUROLOGICAL: mildly lethargic. Motor and sensory grossly within normal limits. Follows commands. Moves all extremities. PSYCHIATRIC: flat affect. mild anxiety, tearful Diagnostic Tests Laboratory: Laboratory Results - last 72 hr 07/17/18 07/17/18 07/17/18 20:05 20:05 20:05 WBC RBC Hgb Hct MCV MCH MCHC RDW Plt Count MPV Prelim Diff (Auto) Neut % (Auto) Lymph % (Auto) [place] % (Auto) Eos % (Auto) Baso % (Auto) Neut # (Auto) Lymph # (Auto) [place] # (Auto) Eos # (Auto) Baso # (Auto) WBC Differential Seg Neuts % (Manual) Band Neuts % (Manual) Lymphocytes % (Manual) Monocytes % (Manual) Eosinophils % (Manual) Abs Neuts (Manual) Differential Comment Platelet Estimate Platelet Morphology PT 11.9 H INR 1.2 APTT 33.1 H Sodium Potassium Chloride Carbon Dioxide Anion Gap BUN Creatinine Estimated GFR Random Glucose Lactic Acid 1.2 Calcium Magnesium Total Bilirubin AST ALT Alkaline Phosphatase Total Creatine Kinase Cancelled Troponin I Cancelled C-Reactive Protein Total Protein Albumin Triglycerides Lipase Urine Color Urine Clarity Urine pH Ur Specific [place] Urine Protein Urine Glucose (UA) Urine Ketones Urine Occult Blood Urine Nitrate Urine Bilirubin Urine Urobilinogen Ur Leukocyte Esterase Urine RBC Urine WBC Urine WBC Clumps Ur Squamous Epith Cells Ur Transition Epith Cell Ur Renal Epithelial Cell Urine Bacteria Urine Mucus Micro UA Comment Ur Microscopic Review Urine Culture Comments 07/17/18 07/17/18 07/17/18 20:05 20:05 20:05 WBC 26.1 H RBC 4.00 Hgb 11.4 L Hct 35.7 MCV 89.4 MCH 28.6 MCHC 32.0 RDW 18.2 H Plt Count 237 MPV 8.8 Prelim Diff (Auto) Neut % (Auto) 94.3 H Lymph % (Auto) 2.4 L [place] % (Auto) 2.2 Eos % (Auto) 0.7 Baso % (Auto) 0.4 Neut # (Auto) 24.7 H Lymph # (Auto) 0.6 L [place] # (Auto) 0.6 Eos # (Auto) 0.2 Baso # (Auto) 0.1 WBC Differential . Seg Neuts % (Manual) Band Neuts % (Manual) Lymphocytes % (Manual) Monocytes % (Manual) Eosinophils % (Manual) Abs Neuts (Manual) Differential Comment Auto diff final Platelet Estimate Platelet Morphology PT INR APTT Sodium 137 Potassium 4.2 Chloride 100 Carbon Dioxide 24.6 Anion Gap 12 BUN 51 H Creatinine 3.33 H Estimated GFR 16 L Random Glucose 81 Lactic Acid Calcium 9.1 Cancelled Magnesium Total Bilirubin 0.6 AST 16 ALT 15 Alkaline Phosphatase 110 Total Creatine Kinase 32 Troponin I Less than 0.02 L C-Reactive Protein 43.00 H Cancelled Total Protein 7.7 D Albumin 2.5 L Triglycerides 168 H Cancelled Lipase 632 H Urine Color Urine Clarity Urine pH Ur Specific [place] Urine Protein Urine Glucose (UA) Urine Ketones Urine Occult Blood Urine Nitrate Urine Bilirubin Urine Urobilinogen Ur Leukocyte Esterase Urine RBC Urine WBC Urine WBC Clumps Ur Squamous Epith Cells Ur Transition Epith Cell Ur Renal Epithelial Cell Urine Bacteria Urine Mucus Micro UA Comment Ur Microscopic Review Urine Culture Comments 07/17/18 07/18/18 07/18/18 20:10 05:20 05:20 WBC 20.6 H RBC 3.17 L Hgb 9.0 L D Hct 28.0 L MCV 88.3 MCH 28.5 MCHC 32.3 RDW 17.8 H Plt Count 212 MPV 8.7 Prelim Diff (Auto) Manual diff required Neut % (Auto) Lymph % (Auto) [place] % (Auto) Eos % (Auto) Baso % (Auto) Neut # (Auto) Lymph # (Auto) [place] # (Auto) Eos # (Auto) Baso # (Auto) WBC Differential Manual diff final Seg Neuts % (Manual) 87 H Band Neuts % (Manual) 4 Lymphocytes % (Manual) 5 L Monocytes % (Manual) 2 Eosinophils % (Manual) 2 Abs Neuts (Manual) 18.7 H Differential Comment . Platelet Estimate Normal Platelet Morphology Normal PT INR APTT Sodium 139 Potassium 3.7 Chloride 104 Carbon Dioxide 22.0 Anion Gap 13 BUN 52 H Creatinine 3.28 H Estimated GFR 16 L Random Glucose 76 Lactic Acid Calcium 8.1 L D Magnesium 1.5 Total Bilirubin 0.5 AST 9 L ALT 11 Alkaline Phosphatase 87 Total Creatine Kinase Troponin I C-Reactive Protein Total Protein 6.4 D Albumin 2.0 L Triglycerides Lipase 396 H Urine Color Yellow Urine Clarity Hazy H Urine pH 6.0 Ur Specific [place] 1.010 Urine Protein 100 H Urine Glucose (UA) Negative Urine Ketones Negative Urine Occult Blood Moderate H Urine Nitrate Negative Urine Bilirubin Negative Urine Urobilinogen Less than 2 Ur Leukocyte Esterase Large H Urine RBC 68 H Urine WBC 176 H Urine WBC Clumps Many H Ur Squamous Epith Cells 3 Ur Transition Epith Cell 1 Ur Renal Epithelial Cell 1 Urine Bacteria Few H Urine Mucus Few H Micro UA Comment Cath-culture ind Ur Microscopic Review Not Reportable Urine Culture Comments Cath-cult indicated 07/19/18 07/19/18 06:23 06:23 WBC 14.0 H RBC 3.30 L Hgb 9.4 L Hct 29.3 L MCV 88.8 MCH 28.4 MCHC 32.0 RDW 17.7 H Plt Count 246 MPV 8.5 Prelim Diff (Auto) Neut % (Auto) 86.9 H Lymph % (Auto) 8.9 L [place] % (Auto) 2.4 Eos % (Auto) 1.4 Baso % (Auto) 0.4 Neut # (Auto) 12.2 H Lymph # (Auto) 1.3 [place] # (Auto) 0.3 Eos # (Auto) 0.2 Baso # (Auto) 0.1 WBC Differential . Seg Neuts % (Manual) Band Neuts % (Manual) Lymphocytes % (Manual) Monocytes % (Manual) Eosinophils % (Manual) Abs Neuts (Manual) Differential Comment Auto diff final Platelet Estimate Platelet Morphology PT INR APTT Sodium 138 Potassium 3.6 Chloride 103 Carbon Dioxide 24.1 Anion Gap 11 BUN 56 H Creatinine 3.83 H Estimated GFR 14 L Random Glucose 130 H Lactic Acid Calcium 8.3 L Magnesium Total Bilirubin AST ALT Alkaline Phosphatase Total Creatine Kinase Troponin I C-Reactive Protein Total Protein Albumin Triglycerides Lipase Urine Color Urine Clarity Urine pH Ur Specific [place] Urine Protein Urine Glucose (UA) Urine Ketones Urine Occult Blood Urine Nitrate Urine Bilirubin Urine Urobilinogen Ur Leukocyte Esterase Urine RBC Urine WBC Urine WBC Clumps Ur Squamous Epith Cells Ur Transition Epith Cell Ur Renal Epithelial Cell Urine Bacteria Urine Mucus Micro UA Comment Ur Microscopic Review Urine Culture Comments Result Diagrams: 07/19/18 06:23 07/19/18 06:23 Microbiology: Microbiology 07/17/18 21:50 Aerobic Blood Culture - Preliminary Blood - Peripheral No growth in 2 days Anaerobic Blood Culture - Preliminary No growth in 2 days 07/17/18 21:45 Aerobic Blood Culture - Preliminary Blood - Peripheral No growth in 2 days Anaerobic Blood Culture - Preliminary No growth in 2 days 07/17/18 20:10 Urine Culture - Preliminary Catheterized Urine No growth. Assessment and Plan Pertinent Non-Medical Issues: Psychosocial: Pt is retired. Lives locally with her daughter. Spiritual: Buddhist, declines pastoral care. Legal: Pt not clearly capacitated to make medical decisions. per [place] statutes proxy decision making falls to her surviving daughter. Ethical issues impacting care: none Important Contacts: Daughter Caitlyn Perez [phone] Granddaughter Anita Albert [phone] Prognosis: 82 yo female with hx chronic idiopathic pancreatitis, CKD admitted for abd pain. She has a GJ. She has had weight loss, limited PO intake, difficulty tolerating TF. Seems to have chronic abd pain. She has declined in the recent months and this decline is more marked after her fall 2 weeks ago. SHe will likely continue to decline. Unlikely to benefit much from rehab given poor nutrition status. She is at risk for further complications and setbacks. SHe may be hospice appropriate if family's goals were in line with comfort. Code Status: Full Code Plan: - LEGAL DECISON MAKER - Pt not clearly incapacitated to make medical decisions. Per [place] statutes proxy decision making. The patient's surviving daughter , Caitlyn. - CODE STATUS- full code - GOALS - Goals aggressive for now but somewhat conflicted. Daughter feels control of abd pain is priority and feels her mom could get better if she could "just eat and get her nutrition better." Eats little d/t intermittent abd pain. Daughter wants pt to be able to stay at home. As of now wants rehab. Introduced hospice, she was tearful and not ready for that. She will discuss with her mother. Pt oriented but has poor insight into her medical status and poor recall. - SYMPTOMS - * pain - multifactorial, acute and chronic. pt with recurrent idiopathic pancreatitis, recurrent choledocholithiasis, seems to have flareups of pain when her bile duct clogged, no evidence of this in most current labs. recently developed a bedsore. TTP epigstrium. did drink some juice w/ no exacerbation pain. Pain 06/24. Coyle 5/325 every 4 hours as needed last had this morning at 8:00. on ursodiol and creon per GI as well as periodic ERCP when needed for obstruction. Consider a scheduled pain medication. No other recommendations at this time * debility -multifactorial. Patient has had some weight loss and some physical decline since a fall 2 weeks ago. She has poor p.o. intake mostly 2/2 fear of abdominal pain. She gets tube feedings via GJ but this gives her diarrhea per family. unlikely she would do well with rehab given decline and poor nutrition status. PT following. introduced hospice to family. - attempted to contact daughter and proxy but no answer and mailbox was full so could not leave message - Palliative care will continue to follow during hospital course as condition evolves, to assist patient/decision-maker with understanding of medical conditions, weighing benefits/burdens of treatment options, for clarification of goals of treatment. Additionally will assist with any symptoms of palliative concern
[2018-07-20] MEDS: Sod Chloride 0.9% Inj 1,000 ML IV.CONT SCH ×3 (01:30→20:03)
[2018-07-20 07:02] LABS: Calcium 7.9 mg/dL (8.5-10.1); Carbon Dioxide 21.5 meq/L (21.0-32.0); Potassium 3.5 meq/L (3.5-5.1)
[2018-07-20] MEDS: Sucralfate 1 GM Tablet PO SCH ×3 (08:55→18:42)
[2018-07-20] MEDS: predniSONE 10 MG Tablet PO SCH (08:56)
[2018-07-20] MEDS: Metoprolol Tartrate 25 MG Tablet PO SCH ×2 (08:57→23:09)
[2018-07-20] MEDS: Lipase/Protease/Amylase 12/38/60 DR Capsule PO SCH ×3 (08:57→18:42)
[2018-07-20] MEDS: amLODIPine 5 MG Tablet PO SCH (08:57)
--- NOTE | 2018-07-20 14:56 | P.PNIM ---
Subjective Interval history: c/o epigastric pain. wants to continue liquid diet. Physical Exam Vital signs: Vital Signs 07/19/18 16:32 07/19/18 19:05 07/20/18 00:01 Temperature 98.3 F 97.8 F 98.2 F Pulse Rate 98 H 82 87 Respiratory Rate 17 18 18 Blood Pressure 125/72 138/67 140/67 Pulse Oximetry 99 99 97 07/20/18 00:30 07/20/18 03:37 07/20/18 08:00 Temperature 98.1 F 97.8 F Pulse Rate 84 77 Respiratory Rate 16 18 Blood Pressure 159/69 H 138/66 Pulse Oximetry 96 93 L 07/20/18 09:25 Temperature Pulse Rate Respiratory Rate 17 Blood Pressure Pulse Oximetry Intake & Output 07/19/18 07/20/18 07/20/18 18:59 06:59 18:59 Intake Total 1740 / 1740 1360 / 1360 Balance 1740 / 1740 1360 / 1360 Weight 64.1 kg Intake: IV 1000 / 1000 1000 / 1000 NS Inj 1,000 ML @ 100 mls/hr IV 1000 / 1000 .CONT .Q10H [facility] Rx#:[id number] 1/2 Normal Saline Inj 1,000 ML 1000 / 1000 @ 84 mls/hr IV.CONT .[id number] [facility] Rx#:[id number] Oral 740 / 740 360 / 360 Other: # Voids 2 1 Date of Last Bowel Movement 07/19/18 07/19/18 07/20/18 # Bowel Movements 1 1 heart reg lung cta abd s/nt. gj ext no edema - Urinary Catheter Management Straight Cath placed during this visit: yes Reason for continuing: Not indwelling catheter Insertion date: 07/17/18 Insertion time: 20:10 Results - Labs CBC & Chem 7: 07/19/18 06:23 07/20/18 05:31 Laboratory Results - last 24 hr 07/20/18 05:31 Sodium 140 Potassium 3.5 Chloride 105 Carbon Dioxide 21.5 Anion Gap 14 BUN 60 H Creatinine 3.71 H Estimated GFR 14 L Random Glucose 118 H Calcium 7.9 L Microbiology 07/17/18 21:50 Blood - Peripheral Aerobic Blood Culture - Preliminary No growth in 3 days 07/17/18 21:50 Blood - Peripheral Anaerobic Blood Culture - Preliminary No growth in 3 days 07/17/18 21:45 Blood - Peripheral Aerobic Blood Culture - Preliminary No growth in 3 days 07/17/18 21:45 Blood - Peripheral Anaerobic Blood Culture - Preliminary No growth in 3 days 07/17/18 20:10 Catheterized Urine Urine Culture - Final Assessment and Plan - Assessment (1) Abdominal pain Code(s): R10.9 - Unspecified abdominal pain Status: Acute Plan: Assessment and Plan (1) Idiopathic pancreatitis - Ms. Larsen is an 82 y/o AAF with recurrent idiopathic pancreatitis. She has been hospitalized numerous times for issues with pain control related to recurrent pancreatitis. Her last admission was from 03/03/18 to 03/28/18 and she had biliary obstruction at that time. - During that admission she underwent evaluation with ERCP (03/03/18) which noted multiple stones, migrated metal stent up into CBD, could not put plastic stent due to "kink" in current stent according to GI notes. She required PTC placement on 03/04 by IR which noted severe obstruction of the proximal common bile duct stent with very challenging recanalization requiring multiple wires and catheters. biliary stent placement. She had to have a repeat ERCP (03/07/18) and had to have the metal stent cleared of debris and they were able to confirm complete clearance of the stent with good emptying through the stent. She had a percutaneous cholangiogram on 03/09/18 where the external portion of biliary drain was removed and the report showed some small hyperplasia within the distal aspect of the biliary stent but there is a patent channel down to the small bowel. -s/p ercp 05/23 with balloon sweep of stone fragments/debris from metal stent and placement of new stent - GJ tube exchange 05/24 with IR -mesenteric angio with IR 05/24. patent vessels. - Pt presented back to the ED at [facility] [place] on 06/29/18 with continued abdominal pain that is similar to her previous pancreatitis pain. - Her labs in the ED revealed WBC count 30.1, Cr 5.57 /BUN 73, Lipase 234, TBili 0.3, AST 15, ALT 11, AlkPhos 139. Abdomen/Pelvis CT 06/29/18 reveals: 1. Biliary stent with interval Silastic stent. Air in the left hepatic ducts. 2. I don't see an etiology for the patient's right-sided abdominal pain. Lack of intravenous and oral contrast makes detection of subtle abnormalities difficult 3. Inflammatory processes such as pyonephritis cannot be excluded. GI Procedure 06/30/18 with IR An ERCP was performed by the ordering physician. The images demonstrate a metallic stent in the mid and distal common bile duct. The stent is traversed with a guidewire which extends into the intrahepatic bile ducts. The final image demonstrates a plastic stent within the metallic stent. The intrahepatic bile ducts do not appear to be significantly dilated - Pt underwent exchange of G/J tube 07/11/18 She was discharged and now readmitted again in less than a week at home with recurrent abdomen pain. She again is noted to have a/ckd 3 Her tube feeds had been stopped but are now back to goal we are increasing her ivf due to ramón. continue to monitor bmp in AM She is getting prn pain control PT daily to sustain her physical strength. Acute on chronic kidney failure - Pt with baseline stage 3 CKD, pt follows with Dr. Melara -see above HTN (hypertension) - Cont. home meds - Monitor GERD (gastroesophageal reflux disease) - PPI (2) Acute on chronic kidney failure Code(s): N17.9 - Acute kidney failure, unspecified; N18.9 - Chronic kidney disease, unspecified Status: Acute (3) Idiopathic pancreatitis Code(s): K85.00 - Idiopathic acute pancreatitis without necrosis or infection Status: Acute (4) HTN (hypertension) Code(s): I10 - Essential (primary) hypertension Status: Chronic (2) Acute on chronic kidney failure Qualifiers: Acute renal failure type: unspecified Chronic kidney disease stage: unspecified stage Qualified Code(s): N17.9 - Acute kidney failure, unspecified ; N18.9 - Chronic kidney disease, unspecified (3) Idiopathic pancreatitis Qualifiers: Chronicity: acute Acute pancreatitis complication: unspecified Qualified Code(s): K85.00 - Idiopathic acute pancreatitis without necrosis or infection
[2018-07-21] MEDS: Sod Chloride 0.9% Inj 1,000 ML IV.CONT SCH ×2 (03:58→11:43)
[2018-07-21 09:07] LABS: Calcium 8.4 mg/dL (8.5-10.1); Carbon Dioxide 21.8 meq/L (21.0-32.0); Potassium 3.6 meq/L (3.5-5.1)
--- NOTE | 2018-07-21 10:14 | P.PNIM ---
Subjective Interval history: angry because they delivered a solid food tray. orders were for liquid she is reluctant to advance her diet. she is eager for oob with PT today. Physical Exam Vital signs: Vital Signs 07/20/18 12:00 07/20/18 15:26 07/20/18 16:00 Temperature 97.5 F L 97.9 F Pulse Rate 89 93 H Respiratory Rate 18 17 18 Blood Pressure 129/69 140/67 Pulse Oximetry 98 98 07/20/18 19:15 07/20/18 19:52 07/20/18 19:54 Temperature 98.0 F Pulse Rate 92 H 90 Respiratory Rate 18 16 Blood Pressure 157/78 H Pulse Oximetry 100 07/21/18 00:00 07/21/18 01:30 07/21/18 03:51 Temperature 97.8 F Pulse Rate 83 79 Respiratory Rate 18 16 Blood Pressure 142/67 H Pulse Oximetry 100 07/21/18 04:00 Temperature 97.8 F Pulse Rate 80 Respiratory Rate 16 Blood Pressure 139/65 Pulse Oximetry 97 Intake & Output 07/20/18 07/21/18 07/21/18 18:59 06:59 18:59 Intake Total 480 / 480 1000 / 1000 Balance 480 / 480 1000 / 1000 Intake: IV 1000 / 1000 NS Inj 1,000 ML @ 100 mls/hr IV 1000 / 1000 .CONT .Q10H [facility] Rx#:[id number] Oral 480 / 480 Other: # Voids 3 Date of Last Bowel Movement 07/20/18 07/20/18 # Bowel Movements 1 heart reg lung cta abd s/nt gj ext no edema - Urinary Catheter Management Straight Cath placed during this visit: yes Reason for continuing: Not indwelling catheter Insertion date: 07/17/18 Insertion time: 20:10 Results - Labs CBC & Chem 7: 07/19/18 06:23 07/21/18 07:22 Laboratory Results - last 24 hr 07/21/18 07:22 Sodium 139 Potassium 3.6 Chloride 104 Carbon Dioxide 21.8 Anion Gap 13 BUN 66 H Creatinine 3.22 H Estimated GFR 17 L Random Glucose 107 H Calcium 8.4 L Microbiology 07/17/18 21:50 Blood - Peripheral Aerobic Blood Culture - Preliminary No growth in 3 days 07/17/18 21:50 Blood - Peripheral Anaerobic Blood Culture - Preliminary No growth in 3 days 07/17/18 21:45 Blood - Peripheral Aerobic Blood Culture - Preliminary No growth in 3 days 07/17/18 21:45 Blood - Peripheral Anaerobic Blood Culture - Preliminary No growth in 3 days Assessment and Plan - Assessment (1) Abdominal pain Code(s): R10.9 - Unspecified abdominal pain Status: Acute Plan: Assessment and Plan (1) Idiopathic pancreatitis - Ms. Larsen is an 82 y/o AAF with recurrent idiopathic pancreatitis. She has been hospitalized numerous times for issues with pain control related to recurrent pancreatitis. Her last admission was from 03/03/18 to 03/28/18 and she had biliary obstruction at that time. - During that admission she underwent evaluation with ERCP (03/03/18) which noted multiple stones, migrated metal stent up into CBD, could not put plastic stent due to "kink" in current stent according to GI notes. She required PTC placement on 03/04 by IR which noted severe obstruction of the proximal common bile duct stent with very challenging recanalization requiring multiple wires and catheters. biliary stent placement. She had to have a repeat ERCP (03/07/18) and had to have the metal stent cleared of debris and they were able to confirm complete clearance of the stent with good emptying through the stent. She had a percutaneous cholangiogram on 03/09/18 where the external portion of biliary drain was removed and the report showed some small hyperplasia within the distal aspect of the biliary stent but there is a patent channel down to the small bowel. -s/p ercp 05/23 with balloon sweep of stone fragments/debris from metal stent and placement of new stent - GJ tube exchange 05/24 with IR -mesenteric angio with IR 05/24. patent vessels. - Pt presented back to the ED at [facility] [place] on 06/29/18 with continued abdominal pain that is similar to her previous pancreatitis pain. - Her labs in the ED revealed WBC count 30.1, Cr 5.57 /BUN 73, Lipase 234, TBili 0.3, AST 15, ALT 11, AlkPhos 139. Abdomen/Pelvis CT 06/29/18 reveals: 1. Biliary stent with interval Silastic stent. Air in the left hepatic ducts. 2. I don't see an etiology for the patient's right-sided abdominal pain. Lack of intravenous and oral contrast makes detection of subtle abnormalities difficult 3. Inflammatory processes such as pyonephritis cannot be excluded. GI Procedure 06/30/18 with IR An ERCP was performed by the ordering physician. The images demonstrate a metallic stent in the mid and distal common bile duct. The stent is traversed with a guidewire which extends into the intrahepatic bile ducts. The final image demonstrates a plastic stent within the metallic stent. The intrahepatic bile ducts do not appear to be significantly dilated - Pt underwent exchange of G/J tube 07/11/18 She was discharged and now readmitted again in less than a week at home with recurrent abdomen pain. She again is noted to have a/ckd 3 Her tube feeds had been stopped but are now back to goal we are increasing her ivf due to ramón. continue to monitor bmp in AM . slow improvements She is getting prn pain control PT daily to sustain her physical strength. pt reluctant to advance to solid food. cont liquids. Acute on chronic kidney failure - Pt with baseline stage 3 CKD, pt follows with Dr. Melara -see above HTN (hypertension) - Cont. home meds - Monitor GERD (gastroesophageal reflux disease) - PPI (2) Acute on chronic kidney failure Code(s): N17.9 - Acute kidney failure, unspecified; N18.9 - Chronic kidney disease, unspecified Status: Acute (3) Idiopathic pancreatitis Code(s): K85.00 - Idiopathic acute pancreatitis without necrosis or infection Status: Acute (4) HTN (hypertension) Code(s): I10 - Essential (primary) hypertension Status: Chronic (2) Acute on chronic kidney failure Qualifiers: Acute renal failure type: unspecified Chronic kidney disease stage: unspecified stage Qualified Code(s): N17.9 - Acute kidney failure, unspecified ; N18.9 - Chronic kidney disease, unspecified (3) Idiopathic pancreatitis Qualifiers: Chronicity: acute Acute pancreatitis complication: unspecified Qualified Code(s): K85.00 - Idiopathic acute pancreatitis without necrosis or infection
[2018-07-21] MEDS: Metoprolol Tartrate 25 MG Tablet PO SCH ×2 (10:38→20:17)
[2018-07-21] MEDS: Lipase/Protease/Amylase 12/38/60 DR Capsule PO SCH ×3 (10:38→18:40)
[2018-07-21] MEDS: predniSONE 10 MG Tablet PO SCH (10:38)
[2018-07-21] MEDS: amLODIPine 5 MG Tablet PO SCH (10:38)
[2018-07-21] MEDS: Sucralfate 1 GM Tablet PO SCH ×3 (10:39→18:41)
[2018-07-22] MEDS: Sod Chloride 0.9% Inj 1,000 ML IV.CONT SCH ×5 (01:32→22:22)
[2018-07-22] MEDS: Sucralfate 1 GM Tablet PO SCH ×3 (09:18→17:51)
[2018-07-22] MEDS: Metoprolol Tartrate 25 MG Tablet PO SCH ×2 (09:18→20:49)
[2018-07-22] MEDS: predniSONE 10 MG Tablet PO SCH (09:18)
[2018-07-22] MEDS: amLODIPine 5 MG Tablet PO SCH (09:19)
[2018-07-22] MEDS: Lipase/Protease/Amylase 12/38/60 DR Capsule PO SCH ×3 (09:19→17:52)
[2018-07-22 10:06] LABS: Carbon Dioxide 25.3 meq/L (21.0-32.0); Potassium 3.7 meq/L (3.5-5.1)
--- NOTE | 2018-07-22 10:46 | P.PNIM ---
Subjective Interval history: pt happy. comfortable. says she prefers to stay on liquid diet even after dc. tolerating tf. Physical Exam Vital signs: Vital Signs 07/21/18 11:39 07/21/18 12:00 07/21/18 16:00 Temperature 98 F 98.1 F Pulse Rate 78 90 Respiratory Rate 16 16 16 Blood Pressure 147/71 H 130/60 Pulse Oximetry 100 98 07/21/18 16:45 07/21/18 20:00 07/22/18 00:00 Temperature 98 F 98.8 F Pulse Rate 92 H 83 Respiratory Rate 16 18 16 Blood Pressure 153/77 H 146/72 H Pulse Oximetry 99 100 07/22/18 04:00 07/22/18 09:00 Temperature 98.6 F Pulse Rate 92 H 92 H Respiratory Rate 18 Blood Pressure 156/74 H Pulse Oximetry 99 Intake & Output 07/21/18 07/22/18 07/22/18 18:59 06:59 18:59 Intake Total 1000 / 1000 1275 / 1275 1000 / 1000 Balance 1000 / 1000 1275 / 1275 1000 / 1000 Weight 65.3 kg Intake: IV 1000 / 1000 850 / 850 1000 / 1000 NS Inj 1,000 ML @ 100 mls/hr IV 1000 / 1000 850 / 850 1000 / 1000 .CONT .Q10H HITESH Rx#:[id number] Tube Feeding 425 / 425 Other: # Voids 2 1 Date of Last Bowel Movement 07/21/18 07/21/18 07/21/18 # Bowel Movements 1 heart reg lung cta abd gj tube. no distention. bs ext no edema - Urinary Catheter Management Straight Cath placed during this visit: yes Reason for continuing: Not indwelling catheter Insertion date: 07/17/18 Insertion time: 20:10 Results - Labs CBC & Chem 7: 07/19/18 06:23 07/22/18 09:15 Laboratory Results - last 24 hr 07/22/18 09:15 Sodium 141 Potassium 3.7 Chloride 106 Carbon Dioxide 25.3 Anion Gap 10 BUN 67 H Creatinine 2.85 H Estimated GFR 19 L Random Glucose 133 H Calcium 8.0 L Microbiology 07/17/18 21:50 Blood - Peripheral Aerobic Blood Culture - Preliminary No growth in 4 days 07/17/18 21:50 Blood - Peripheral Anaerobic Blood Culture - Preliminary No growth in 4 days 07/17/18 21:45 Blood - Peripheral Aerobic Blood Culture - Preliminary No growth in 4 days 07/17/18 21:45 Blood - Peripheral Anaerobic Blood Culture - Preliminary No growth in 4 days Assessment and Plan - Assessment (1) Abdominal pain Code(s): R10.9 - Unspecified abdominal pain Status: Acute Plan: Assessment and Plan (1) Idiopathic pancreatitis - Ms. Larsen is an 82 y/o AAF with recurrent idiopathic pancreatitis. She has been hospitalized numerous times for issues with pain control related to recurrent pancreatitis. Her last admission was from 03/03/18 to 03/28/18 and she had biliary obstruction at that time. - During that admission she underwent evaluation with ERCP (03/03/18) which noted multiple stones, migrated metal stent up into CBD, could not put plastic stent due to "kink" in current stent according to GI notes. She required PTC placement on 03/04 by IR which noted severe obstruction of the proximal common bile duct stent with very challenging recanalization requiring multiple wires and catheters. biliary stent placement. She had to have a repeat ERCP (03/07/18) and had to have the metal stent cleared of debris and they were able to confirm complete clearance of the stent with good emptying through the stent. She had a percutaneous cholangiogram on 03/09/18 where the external portion of biliary drain was removed and the report showed some small hyperplasia within the distal aspect of the biliary stent but there is a patent channel down to the small bowel. -s/p ercp 05/23 with balloon sweep of stone fragments/debris from metal stent and placement of new stent - GJ tube exchange 05/24 with IR -mesenteric angio with IR 05/24. patent vessels. - Pt presented back to the ED at [facility] [place] on 06/29/18 with continued abdominal pain that is similar to her previous pancreatitis pain. - Her labs in the ED revealed WBC count 30.1, Cr 5.57 /BUN 73, Lipase 234, TBili 0.3, AST 15, ALT 11, AlkPhos 139. Abdomen/Pelvis CT 06/29/18 reveals: 1. Biliary stent with interval Silastic stent. Air in the left hepatic ducts. 2. I don't see an etiology for the patient's right-sided abdominal pain. Lack of intravenous and oral contrast makes detection of subtle abnormalities difficult 3. Inflammatory processes such as pyonephritis cannot be excluded. GI Procedure 06/30/18 with IR An ERCP was performed by the ordering physician. The images demonstrate a metallic stent in the mid and distal common bile duct. The stent is traversed with a guidewire which extends into the intrahepatic bile ducts. The final image demonstrates a plastic stent within the metallic stent. The intrahepatic bile ducts do not appear to be significantly dilated - Pt underwent exchange of G/J tube 07/11/18 She was discharged and now readmitted again in less than a week at home with recurrent abdomen pain. She again is noted to have a/ckd 3 Her tube feeds had been stopped but are now back to goal we are increasing her ivf due to ramón. continue to monitor bmp in AM . slow improvements She is getting prn pain control PT daily to sustain her physical strength. pt reluctant to advance to solid food. cont liquids even upon dc per her request. plan for dc home over the weekend. Acute on chronic kidney failure - Pt with baseline stage 3 CKD, pt follows with Dr. Melara -see above HTN (hypertension) - Cont. home meds - Monitor GERD (gastroesophageal reflux disease) - PPI (2) Acute on chronic kidney failure Code(s): N17.9 - Acute kidney failure, unspecified; N18.9 - Chronic kidney disease, unspecified Status: Acute (3) Idiopathic pancreatitis Code(s): K85.00 - Idiopathic acute pancreatitis without necrosis or infection Status: Acute (4) HTN (hypertension) Code(s): I10 - Essential (primary) hypertension Status: Chronic (2) Acute on chronic kidney failure Qualifiers: Acute renal failure type: unspecified Chronic kidney disease stage: unspecified stage Qualified Code(s): N17.9 - Acute kidney failure, unspecified ; N18.9 - Chronic kidney disease, unspecified (3) Idiopathic pancreatitis Qualifiers: Chronicity: acute Acute pancreatitis complication: unspecified Qualified Code(s): K85.00 - Idiopathic acute pancreatitis without necrosis or infection
[2018-07-23] MEDS: Morphine Inj 4 MG/ML Vial IV.PUSH PRN (06:25)
[2018-07-23] MEDS: Sod Chloride 0.9% Inj 1,000 ML IV.CONT SCH ×3 (06:58→21:52)
[2018-07-23 08:49] LABS: Calcium 7.7 mg/dL (8.5-10.1); Carbon Dioxide 24.5 meq/L (21.0-32.0); Potassium 3.5 meq/L (3.5-5.1)
[2018-07-23] MEDS: Sucralfate 1 GM Tablet PO SCH ×3 (09:00→17:32)
[2018-07-23] MEDS: amLODIPine 5 MG Tablet PO SCH (09:00)
[2018-07-23] MEDS: predniSONE 10 MG Tablet PO SCH (09:00)
[2018-07-23] MEDS: Metoprolol Tartrate 25 MG Tablet PO SCH ×2 (09:00→21:53)
[2018-07-23] MEDS: Lipase/Protease/Amylase 12/38/60 DR Capsule PO SCH ×3 (09:00→17:32)
--- NOTE | 2018-07-23 11:29 | P.PNIM ---
Subjective Interval history: Pt doing well today She ambulated in the belle with PT this morning Pt is tolerating some liquids Some abd discomfort but overall doing better Physical Exam Vital signs: Vital Signs 07/22/18 12:00 07/22/18 16:00 07/22/18 20:00 Temperature 97.9 F 98.1 F 97.7 F Pulse Rate 91 H 89 90 Respiratory Rate 16 14 18 Blood Pressure 138/73 145/80 H 155/75 H Pulse Oximetry 99 99 99 07/23/18 00:00 07/23/18 04:00 07/23/18 08:00 Temperature 98.3 F 98.4 F 98.4 F Pulse Rate 71 84 85 Respiratory Rate 18 20 18 Blood Pressure 124/61 149/69 H 166/74 H Pulse Oximetry 100 100 97 Intake & Output 07/22/18 07/23/18 07/23/18 18:59 06:59 18:59 Intake Total 1000 / 1000 2240 / 2240 1000 / 1000 Output Total 1000 / 1000 Balance 1000 / 1000 1240 / 1240 1000 / 1000 Weight 65.4 kg Intake: IV 1000 / 1000 1000 / 1000 1000 / 1000 NS Inj 1,000 ML @ 100 mls/hr IV 1000 / 1000 1000 / 1000 1000 / 1000 .CONT .Q10H HITESH Rx#:[id number] Oral 240 / 240 Tube Feeding 500 / 500 Tube Irrigant 500 / 500 Output: Urine 1000 / 1000 Other: # Voids 6 Date of Last Bowel Movement 07/21/18 # Bowel Movements 1 Narrative: General: NAD, AAOx3 Chest: CTA Cardiac: Regular Abd: +BS, soft nondistended, GJ tube in place Ext: No edema - Urinary Catheter Management Straight Cath placed during this visit: yes Reason for continuing: Not indwelling catheter Insertion date: 07/17/18 Insertion time: 20:10 Results - Labs CBC & Chem 7: 07/19/18 06:23 07/23/18 07:24 Laboratory Results - last 24 hr 07/23/18 07:24 Sodium 144 Potassium 3.5 Chloride 111 H Carbon Dioxide 24.5 Anion Gap 9 BUN 61 H Creatinine 2.44 H Estimated GFR 23 L Random Glucose 107 H Calcium 7.7 L Microbiology 07/17/18 21:50 Blood - Peripheral Aerobic Blood Culture - Final No growth in 5 days 07/17/18 21:50 Blood - Peripheral Anaerobic Blood Culture - Final No growth in 5 days 07/17/18 21:45 Blood - Peripheral Aerobic Blood Culture - Final No growth in 5 days 07/17/18 21:45 Blood - Peripheral Anaerobic Blood Culture - Final No growth in 5 days - Imaging Chest X-Ray 07/17/18 19:53 CONCLUSION: Slight worsening right lung base atelectasis. Abdomen/Pelvis CT 07/17/18 19:55 CONCLUSION: Stable examination not significantly changed. Assessment and Plan - Assessment (1) Abdominal pain Code(s): R10.9 - Unspecified abdominal pain Status: Acute Plan: Idiopathic pancreatitis - Ms. Larsen is an 82 y/o AAF with recurrent idiopathic pancreatitis. She has been hospitalized numerous times for issues with pain control related to recurrent pancreatitis. Her last admission was from 03/03/18 to 03/28/18 and she had biliary obstruction at that time. - During that admission she underwent evaluation with ERCP (03/03/18) which noted multiple stones, migrated metal stent up into CBD, could not put plastic stent due to "kink" in current stent according to GI notes. She required PTC placement on 03/04 by IR which noted severe obstruction of the proximal common bile duct stent with very challenging recanalization requiring multiple wires and catheters. biliary stent placement. She had to have a repeat ERCP (03/07/18) and had to have the metal stent cleared of debris and they were able to confirm complete clearance of the stent with good emptying through the stent. She had a percutaneous cholangiogram on 03/09/18 where the external portion of biliary drain was removed and the report showed some small hyperplasia within the distal aspect of the biliary stent but there is a patent channel down to the small bowel. - s/p ercp 05/23 with balloon sweep of stone fragments/debris from metal stent and placement of new stent - GJ tube exchange 05/24 with IR - Mesenteric angio with IR 05/24. patent vessels. - Pt presented back to the ED at [facility] [place] on 06/29/18 with continued abdominal pain that is similar to her previous pancreatitis pain. - Her labs iat that time revealed WBC count 30.1, Cr 5.57 /BUN 73, Lipase 234, TBili 0.3, AST 15, ALT 11, AlkPhos 139. - Abdomen/Pelvis CT (06/29/18) reveals: 1. Biliary stent with interval Silastic stent. Air in the left hepatic ducts. 2. I don't see an etiology for the patient's right-sided abdominal pain. Lack of intravenous and oral contrast makes detection of subtle abnormalities difficult 3. Inflammatory processes such as pyonephritis cannot be excluded. - GI Procedure (06/30/18) with IR - An ERCP was performed by the ordering physician. The images demonstrate a metallic stent in the mid and distal common bile duct. The stent is traversed with a guidewire which extends into the intrahepatic bile ducts. The final image demonstrates a plastic stent within the metallic stent. The intrahepatic bile ducts do not appear to be significantly dilated - Pt underwent exchange of G/J tube 07/11/18 - She was discharged and now readmitted again in less than a week at home with recurrent abdomen pain. - She was again noted to have a/ckd 3 at admission. - Her tube feeds had been stopped but are now back to goal - Her A/CKD has been improving with IVF - prn pain control - PT daily to sustain her physical strength. - Pt to continue liquids even upon dc per her request. - Anticipate s/c home tomorrow. Acute on chronic kidney failure - Pt with baseline stage 3 CKD, pt follows with Dr. Melara - see above HTN (hypertension) - Cont. home meds - Monitor GERD (gastroesophageal reflux disease) - PPI The exam, history, and the medical decision-making described in the above note were completed with the assistance of the mid-level provider. I reviewed and agree with the findings presented. I attest that I had a [id number] encounter with the patient on the same day, and personally performed and documented my assessment and findings in the medical record. (2) Acute on chronic kidney failure Code(s): N17.9 - Acute kidney failure, unspecified; N18.9 - Chronic kidney disease, unspecified Status: Acute (3) Idiopathic pancreatitis Code(s): K85.00 - Idiopathic acute pancreatitis without necrosis or infection Status: Acute (4) HTN (hypertension) Code(s): I10 - Essential (primary) hypertension Status: Chronic (2) Acute on chronic kidney failure Qualifiers: Acute renal failure type: unspecified Chronic kidney disease stage: unspecified stage Qualified Code(s): N17.9 - Acute kidney failure, unspecified ; N18.9 - Chronic kidney disease, unspecified (3) Idiopathic pancreatitis Qualifiers: Chronicity: acute Acute pancreatitis complication: unspecified Qualified Code(s): K85.00 - Idiopathic acute pancreatitis without necrosis or infection
[2018-07-24] MEDS: Sod Chloride 0.9% Inj 1,000 ML IV.CONT SCH ×2 (02:42→13:18)
[2018-07-24] MEDS: Morphine Inj 4 MG/ML Vial IV.PUSH PRN ×2 (05:29→10:12)
[2018-07-24 07:01] LABS: Calcium 7.8 mg/dL (8.5-10.1); Carbon Dioxide 24.9 meq/L (21.0-32.0); Potassium 3.7 meq/L (3.5-5.1)
[2018-07-24] MEDS: predniSONE 10 MG Tablet PO SCH (10:06)
[2018-07-24] MEDS: amLODIPine 5 MG Tablet PO SCH (10:06)
[2018-07-24] MEDS: Lipase/Protease/Amylase 12/38/60 DR Capsule PO SCH ×3 (10:06→17:55)
[2018-07-24] MEDS: Metoprolol Tartrate 25 MG Tablet PO SCH ×2 (10:06→20:36)
[2018-07-24] MEDS: Sucralfate 1 GM Tablet PO SCH ×3 (10:06→17:55)
--- NOTE | 2018-07-24 10:16 | P.PNIM ---
Subjective Interval history: pt sitting on edge bed. legs crossed.looks comfortable. ambulated with PT. tolerating liquids. she has no interest in advance to solids. she is tolerating her tube feeding. Physical Exam Vital signs: Vital Signs 07/23/18 12:00 07/23/18 16:00 07/23/18 20:00 Temperature 97.3 F L 98.0 F 98 F Pulse Rate 78 71 83 Respiratory Rate 18 18 16 Blood Pressure 146/73 H 155/80 H 144/73 H Pulse Oximetry 99 97 100 07/24/18 00:00 07/24/18 04:00 07/24/18 08:00 Temperature 97.7 F 98.1 F 98.7 F Pulse Rate 96 H 96 H 96 H Respiratory Rate 18 18 16 Blood Pressure 165/76 H 163/78 H 145/67 H Pulse Oximetry 99 99 100 Intake & Output 07/23/18 07/24/18 07/24/18 18:59 06:59 18:59 Intake Total 1500 / 1500 4743 / 4743 Balance 1500 / 1500 4743 / 4743 Weight 66.8 kg Intake: IV 1000 / 1000 2288 / 2288 NS Inj 1,000 ML @ 100 mls/hr IV 1000 / 1000 2288 / 2288 .CONT .Q10H HITESH Rx#:[id number] Oral 500 / 500 240 / 240 Tube Feeding 1615 / 1615 Water Bolus Amount 600 / 600 Other: # Voids 1 4 Date of Last Bowel Movement 07/23/18 07/24/18 # Bowel Movements 1 on edge bed legs crossed no distress heart reg lung cta abd gj tube ext no edema - Urinary Catheter Management Straight Cath placed during this visit: yes Reason for continuing: Not indwelling catheter Insertion date: 07/17/18 Insertion time: 20:10 Results - Labs CBC & Chem 7: 07/19/18 06:23 07/24/18 05:05 Laboratory Results - last 24 hr 07/23/18 07/24/18 07/24/18 12:43 05:05 08:38 Sodium 145 Potassium 3.7 Chloride 110 H Carbon Dioxide 24.9 Anion Gap 10 BUN 58 H Creatinine 2.23 H Estimated GFR 26 L POC Glucose 180 H 137 H Random Glucose 115 H Calcium 7.8 L Assessment and Plan - Assessment (1) Abdominal pain Code(s): R10.9 - Unspecified abdominal pain Status: Acute Plan: Idiopathic pancreatitis - Ms. Larsen is an 82 y/o AAF with recurrent idiopathic pancreatitis. She has been hospitalized numerous times for issues with pain control related to recurrent pancreatitis. Her last admission was from 03/03/18 to 03/28/18 and she had biliary obstruction at that time. - During that admission she underwent evaluation with ERCP (03/03/18) which noted multiple stones, migrated metal stent up into CBD, could not put plastic stent due to "kink" in current stent according to GI notes. She required PTC placement on 03/04 by IR which noted severe obstruction of the proximal common bile duct stent with very challenging recanalization requiring multiple wires and catheters. biliary stent placement. She had to have a repeat ERCP (03/07/18) and had to have the metal stent cleared of debris and they were able to confirm complete clearance of the stent with good emptying through the stent. She had a percutaneous cholangiogram on 03/09/18 where the external portion of biliary drain was removed and the report showed some small hyperplasia within the distal aspect of the biliary stent but there is a patent channel down to the small bowel. - s/p ercp 05/23 with balloon sweep of stone fragments/debris from metal stent and placement of new stent - GJ tube exchange 05/24 with IR - Mesenteric angio with IR 05/24. patent vessels. - Pt presented back to [place] [facility] [place] with continued abdominal pain that is similar to her previous pancreatitis pain. - Her labs iat that time revealed WBC count 30.1, Cr 5.57 /BUN 73, Lipase 234, TBili 0.3, AST 15, ALT 11, AlkPhos 139. - Abdomen/Pelvis CT (06/29/18) reveals: 1. Biliary stent with interval Silastic stent. Air in the left hepatic ducts. 2. I don't see an etiology for the patient's right-sided abdominal pain. Lack of intravenous and oral contrast makes detection of subtle abnormalities difficult 3. Inflammatory processes such as pyonephritis cannot be excluded. - GI Procedure (06/30/18) with IR - An ERCP was performed by the ordering physician. The images demonstrate a metallic stent in the mid and distal common bile duct. The stent is traversed with a guidewire which extends into the intrahepatic bile ducts. The final image demonstrates a plastic stent within the metallic stent. The intrahepatic bile ducts do not appear to be significantly dilated - Pt underwent exchange of G/J tube 07/11/18 - She was discharged and now readmitted again in less than a week at home with recurrent abdomen pain. - She was again noted to have a/ckd 3 at admission. - Her tube feeds had been stopped but are now back to goal - Her A/CKD has been improving with IVF back to baseline - prn pain control - PT daily to sustain her physical strength. - Pt to continue liquids even upon dc per her request. - ok to dc home today with hhc/pt. Pt looks comfortable this AM,ambulating, guido liquids and tf's. Acute on chronic kidney failure - Pt with baseline stage 3 CKD, pt follows with Dr. Melara - see above HTN (hypertension) - Cont. home meds - Monitor GERD (gastroesophageal reflux disease) - PPI (2) Acute on chronic kidney failure Code(s): N17.9 - Acute kidney failure, unspecified; N18.9 - Chronic kidney disease, unspecified Status: Acute (3) Idiopathic pancreatitis Code(s): K85.00 - Idiopathic acute pancreatitis without necrosis or infection Status: Acute (4) HTN (hypertension) Code(s): I10 - Essential (primary) hypertension Status: Chronic (2) Acute on chronic kidney failure Qualifiers: Acute renal failure type: unspecified Chronic kidney disease stage: unspecified stage Qualified Code(s): N17.9 - Acute kidney failure, unspecified ; N18.9 - Chronic kidney disease, unspecified (3) Idiopathic pancreatitis Qualifiers: Chronicity: acute Acute pancreatitis complication: unspecified Qualified Code(s): K85.00 - Idiopathic acute pancreatitis without necrosis or infection
--- NOTE | 2018-07-24 10:23 | P.DCO ---
- Diagnosis (1) Acute on chronic kidney failure (2) Idiopathic pancreatitis - Physical Therapy Order: Evaluate and treat, Improve ambulation - Home Health Nursing Order: Medical education, Signs/symptoms of disease process, Medication education-adverse effect, Nursing assessment with vital signs - Certification I have seen patient Park Larsen on 07/24/18. My clinical findings support the need for the requested home health care services because: Need for psychosocial assistance I certify that my clinical findings support that this patient is homebound because: Need for psychosocial assistance (1) Acute on chronic kidney failure Qualifiers: Acute renal failure type: unspecified Chronic kidney disease stage: unspecified stage Qualified Code(s): N17.9 - Acute kidney failure, unspecified ; N18.9 - Chronic kidney disease, unspecified (2) Idiopathic pancreatitis Qualifiers: Chronicity: acute Acute pancreatitis complication: unspecified Qualified Code(s): K85.00 - Idiopathic acute pancreatitis without necrosis or infection
[2018-07-25] MEDS: Sod Chloride 0.9% Inj 1,000 ML IV.CONT SCH ×3 (00:31→06:14)
[2018-07-25] MEDS: Metoprolol Tartrate 25 MG Tablet PO SCH ×2 (09:22→20:47)
[2018-07-25] MEDS: Lipase/Protease/Amylase 12/38/60 DR Capsule PO SCH ×3 (09:22→19:19)
[2018-07-25] MEDS: Sucralfate 1 GM Tablet PO SCH ×3 (09:22→18:00)
[2018-07-25] MEDS: predniSONE 10 MG Tablet PO SCH (09:22)
[2018-07-25] MEDS: amLODIPine 5 MG Tablet PO SCH (09:22)
--- NOTE | 2018-07-25 11:54 | P.PNIM ---
Subjective Interval history: Pt reports NO new medical complaints. Pt is NPO awaiting evaluating of G/J tube by IR. Nursing reported that J-tube had NOT been functioning. Physical Exam Vital signs: 07/25/18 00:00 07/25/18 04:00 Temperature 98.2 F 98.6 F Pulse Rate 75 77 Respiratory Rate 18 18 Blood Pressure 148/82 H 146/82 H Pulse Oximetry 99 97 Narrative: GENERAL: This is a well-nourished, well-developed patient, in no apparent distress. CARDIOVASCULAR: Regular rate and rhythm without murmurs, gallops, or rubs. RESPIRATORY: Clear to auscultation. Breath sounds equal bilaterally. No wheezes , rales, or rhonchi. GASTROINTESTINAL: G/J tube in place, +BS x 4, soft MUSCULOSKELETAL: Extremities without clubbing, cyanosis, or edema. NEURO: Alert & Oriented x4 to person, place, time, situation. Moves all ext x4 - Urinary Catheter Management Straight Cath placed during this visit: yes Reason for continuing: Not indwelling catheter Insertion date: 07/17/18 Insertion time: 20:10 Results - Labs CBC & Chem 7: 07/19/18 06:23 07/24/18 05:05 - Imaging Chest X-Ray 07/17/18 19:53 CONCLUSION: Slight worsening right lung base atelectasis. Abdomen/Pelvis CT 07/17/18 19:55 CONCLUSION: Stable examination not significantly changed. Assessment and Plan - Assessment (1) Abdominal pain Code(s): R10.9 - Unspecified abdominal pain Status: Acute Plan: Idiopathic pancreatitis - Ms. Larsen is an 82 y/o AAF with recurrent idiopathic pancreatitis. She has been hospitalized numerous times for issues with pain control related to recurrent pancreatitis. Her last admission was from 03/03/18 to 03/28/18 and she had biliary obstruction at that time. - During that admission she underwent evaluation with ERCP (03/03/18) which noted multiple stones, migrated metal stent up into CBD, could not put plastic stent due to "kink" in current stent according to GI notes. She required PTC placement on 03/04 by IR which noted severe obstruction of the proximal common bile duct stent with very challenging recanalization requiring multiple wires and catheters. biliary stent placement. She had to have a repeat ERCP (03/07/18) and had to have the metal stent cleared of debris and they were able to confirm complete clearance of the stent with good emptying through the stent. She had a percutaneous cholangiogram on 03/09/18 where the external portion of biliary drain was removed and the report showed some small hyperplasia within the distal aspect of the biliary stent but there is a patent channel down to the small bowel. - s/p ercp 05/23 with balloon sweep of stone fragments/debris from metal stent and placement of new stent - GJ tube exchange 05/24 with IR - Mesenteric angio with IR 05/24. patent vessels. - [place] [facility] [place] with continued abdominal pain that is similar to her previous pancreatitis pain. - Her labs iat that time revealed WBC count 30.1, Cr 5.57 /BUN 73, Lipase 234, TBili 0.3, AST 15, ALT 11, AlkPhos 139. - Abdomen/Pelvis CT (06/29/18) reveals: 1. Biliary stent with interval Silastic stent. Air in the left hepatic ducts. 2. I don't see an etiology for the patient's right-sided abdominal pain. Lack of intravenous and oral contrast makes detection of subtle abnormalities difficult 3. Inflammatory processes such as pyonephritis cannot be excluded. - GI Procedure (06/30/18) with IR - An ERCP was performed by the ordering physician. The images demonstrate a metallic stent in the mid and distal common bile duct. The stent is traversed with a guidewire which extends into the intrahepatic bile ducts. The final image demonstrates a plastic stent within the metallic stent. The intrahepatic bile ducts do not appear to be significantly dilated - Pt underwent exchange of G/J tube 07/11/18 - She was discharged and now readmitted again in less than a week at home with recurrent abdomen pain. - She was again noted to have a/ckd 3 at admission. - Her tube feeds had been stopped but are now back to goal - Her A/CKD has been improving with IVF back to baseline - prn pain control - PT daily to sustain her physical strength. - Pt to continue liquids even upon dc per her request. - J-tube NOT flushing. - Await evaluation of G/J tube by IR. - Will need to resume TF once J-tube is functioning properly - Anticipate d/c to home 07/25/18 with HHC/PT - Palliative Medicine to reevaluate prior to discharge. Acute on chronic kidney failure - Pt with baseline stage 3 CKD, pt follows with Dr. Melara - see above HTN (hypertension) - Cont. home meds - Monitor GERD (gastroesophageal reflux disease) - PPI (2) Acute on chronic kidney failure Code(s): N17.9 - Acute kidney failure, unspecified; N18.9 - Chronic kidney disease, unspecified Status: Acute (3) Idiopathic pancreatitis Code(s): K85.00 - Idiopathic acute pancreatitis without necrosis or infection Status: Acute (4) HTN (hypertension) Code(s): I10 - Essential (primary) hypertension Status: Chronic (5) GERD (gastroesophageal reflux disease) Code(s): K21.9 - Gastro-esophageal reflux disease without esophagitis Status: Acute (6) Gastroparesis Code(s): K31.84 - Gastroparesis Status: Acute (7) Anemia Code(s): D64.9 - Anemia, unspecified Status: Chronic (2) Acute on chronic kidney failure Qualifiers: Acute renal failure type: unspecified Chronic kidney disease stage: unspecified stage Qualified Code(s): N17.9 - Acute kidney failure, unspecified ; N18.9 - Chronic kidney disease, unspecified (3) Idiopathic pancreatitis Qualifiers: Chronicity: acute Acute pancreatitis complication: unspecified Qualified Code(s): K85.00 - Idiopathic acute pancreatitis without necrosis or infection (7) Anemia Qualifiers: Anemia type: unspecified type Qualified Code(s): D64.9 - Anemia, unspecified
[2018-07-25] MEDS ORDERED: Iohexol 350 MG/ML 50 ML Vial (for Rad Diag) G-TUBE ONE (14:00)
--- NOTE | 2018-07-25 14:44 | P.RAD ---
Post Procedure Progress Note - Pre Procedure Diagnosis (1) Feeding tube dysfunction - Post Procedure Diagnosis (1) Feeding tube dysfunction - Procedure Information Procedure Date: 07/25/18 Supervising Radiologist: Stephan Alegria Jr, MD Estimated blood loss (mL): 0 Anesthesia: Other - Plan of Activity Patient to Unit: Nursing Unit Patient Condition: Good See PACS Report for procedural detail/treatment. Feeding Tube Feeding Tube: Gastro/Jejunostomy Procedure: Replacement Taiwanese Tube Size: 22 Findings: original tube with occluded J tube. Unable to unclog J tube. Replaced tube. In good position and functions well. OK to use. Plan: Routine GJ tube care.
--- NOTE | 2018-07-25 15:20 | IR ---
EXAM DATE: 07/25/2018 2:50 PM EDT AGE/SEX: 82 years / Female INDICATIONS: Patient presents with clogged GJ tube in need of GJ tube exchange. CLINICAL DATA: This is the patient's subsequent encounter. Patient reports that signs and symptoms h ave been present for 1 week and indicates a pain score of 0/10. MEDICAL/SURGICAL HISTORY: CKD, GERD, HTN, Idiopathic pancreatitis, HLD Cholecystectomy. ERCP, GJ tub e, Biliary stent, Total knee replacement COMPARISON: [facility], GASTROJEJUNOSTOMY TUBE EXCHANGE, 07/11/2018. . FLUORO TIME (min): 8.4 IMAGE SERIES: 2 CONTRAST (cc): 40cc Omnipaque (iohexol) 350 DEVICE(S): 22 Ukrainian Transgastric tube . . PROCEDURE: 1. Fluoroscopically guided gastrojejunostomy tube exchange. The risks, benefits and alternatives to the procedure were explained and verbal and written consent w as obtained. The site was prepped in sterile fashion. Full sterile technique was used, including ca p, mask, sterile gloves and gown and a large sterile sheet. Hand hygiene and 2% chlorhexidine and/or betadine/alcohol prep was utilized per protocol for cutaneous antisepsis. Lidocaine jelly was utiliz ed at the dermatotomy site. Multiple attempts were made at unclogging the existing jejunal tube that is clogged. I was unable to gain complete patency to the tube despite my best efforts. Therefore tube exchange was needed. With fluoroscopic guidance a guidewire was passed through the previous gastrojejunostomy tube and a f resh tube was placed over the guidewire. The balloon was inflated with appropriate volume of saline. Injection of positive contrast demonstrates good position of the gastric and jejunal lumens of the tube. CONCLUSION: 1. Uncomplicated gastrojejunostomy tube exchange as above. Electronically signed by: Stephan Alegria MD 07/25/2018 3:19 PM EDT
--- NOTE | 2018-07-25 15:49 | P.PNPAL ---
Reason for Visit Reason for visit: a. To assist with evaluation and management of symptoms including: pain, debility b. To assist medical decision maker(s) with: better understanding of current medical conditions; weighing benefits/burdens of medical treatment options; making medical treatment decisions. Subjective Subjective/Interval History: Pt resting in bed, just back from GJ tube exchange, her old one was clogged. She is asking for apple juice. She is looking forward to going home, her daughter has hired a residential care facility manager. She says she will not do therapy today because she just had a procedure. She intermittently refuses therapy citing pain and/or nausea. She says she has no nausea right now and that lately sometimes it is good sometimes it is bad. Her pain is about the same she says after her pain meds it is a 7 out of 10. Currently she denies pain. She appears comfortable, no grimacing. Family/Friend Interactions: Spoke with parviz Brady briefly on the phone. Provided medical update. She requested that tube feedings be restarted immediately. Continued to express aggressive goals. Caitlyn expressed no further concerns. Objective Vital Signs: Vital Signs 07/24/18 15:57 07/24/18 20:00 07/25/18 00:00 Temperature 98.2 F 97.3 F L 98.2 F Pulse Rate 90 86 75 Respiratory Rate 16 16 18 Blood Pressure 153/77 H 156/80 H 148/82 H Pulse Oximetry 98 99 99 07/25/18 04:00 07/25/18 08:00 07/25/18 12:00 Temperature 98.6 F 98.4 F 98.3 F Pulse Rate 77 95 H 77 Respiratory Rate 18 16 18 Blood Pressure 146/82 H 178/84 H 172/81 H Pulse Oximetry 97 99 97 Intake & Output 07/24/18 07/25/18 07/25/18 18:59 06:59 18:59 Intake Total 3392 / 3392 1140 / 1140 Balance 3392 / 3392 1140 / 1140 Weight 66.8 kg Intake: IV 712 / 712 1000 / 1000 NS Inj 1,000 ML @ 100 mls/hr IV 712 / 712 1000 / 1000 .CONT .Q10H HITESH Rx#:[id number] Oral 1080 / 1080 140 / 140 Tube Feeding 1200 / 1200 Water Bolus Amount 400 / 400 Other: # Voids 5 Date of Last Bowel Movement 07/24/18 07/24/18 # Bowel Movements 1 Physical Exam: CONSTITUTIONAL/GENERAL: This is an adequately nourished patient, in no apparent distress. SKIN: No jaundice, rashes, or lesions. No wounds seen anteriorly. Skin temperature appropriate. Not diaphoretic. HEAD: Atraumatic. Normocephalic. EYES: Extraocular motions intact. No scleral icterus. No injection or drainage. Fundi not examined. ENT: Hearing grossly normal. Nose without bleeding or purulent drainage. CARDIOVASCULAR: RRR without murmurs, gallops, or rubs. RESPIRATORY/CHEST: Symmetric, unlabored respirations. GASTROINTESTINAL:abd soft, nontender, GJ tube dressing clean and intact MUSCULOSKELETAL: Extremities without clubbing, cyanosis, or edema. No mottling or clubbing. NEUROLOGICAL: awake and alert, calm. Motor and sensory grossly within normal limits. Follows commands. Moves all extremities. PSYCHIATRIC: no sign anxiety or depression Diagnostic Tests Laboratory: Laboratory Results - last 72 hr 07/23/18 07/23/18 07/24/18 07:24 12:43 05:05 Sodium 144 145 Potassium 3.5 3.7 Chloride 111 H 110 H Carbon Dioxide 24.5 24.9 Anion Gap 9 10 BUN 61 H 58 H Creatinine 2.44 H 2.23 H Estimated GFR 23 L 26 L POC Glucose 180 H Random Glucose 107 H 115 H Calcium 7.7 L 7.8 L 07/24/18 08:38 Sodium Potassium Chloride Carbon Dioxide Anion Gap BUN Creatinine Estimated GFR POC Glucose 137 H Random Glucose Calcium Result Diagrams: 07/19/18 06:23 07/24/18 05:05 Imaging: ITS Impressions Chest X-Ray 07/17/18 19:53 CONCLUSION: Slight worsening right lung base atelectasis. Abdomen/Pelvis CT 07/17/18 19:55 CONCLUSION: Stable examination not significantly changed. Tube Change 07/25/18 00:00 CONCLUSION: 1. Uncomplicated gastrojejunostomy tube exchange as above. Procedures: 07/25 GJ tube exchange Assessment and Plan - Disease Oriented Problem List (1) CKD (chronic kidney disease) (2) Idiopathic pancreatitis (3) GERD (gastroesophageal reflux disease) (4) HTN (hypertension) Pertinent Non-Medical Issues: Psychosocial: Pt is retired. Lives locally with her daughter. Spiritual: Cheondoism, declines pastoral care. Legal: Pt not clearly capacitated to make medical decisions. per [place] statutes proxy decision making falls to her surviving daughter. Recommend shared decision making Ethical issues impacting care: none Important Contacts: Daughter Caitlyn Perez [phone] Granddaughter Anita Albert [phone] Prognosis: 82 yo female with hx chronic idiopathic pancreatitis, CKD admitted for abd pain. She has a GJ. She has had weight loss, limited PO intake, difficulty tolerating TF. Seems to have chronic abd pain. She has declined in the recent months and this decline is more marked after her fall 2 weeks ago. SHe will likely continue to decline. Unlikely to benefit much from rehab given poor nutrition status. She is at risk for further complications and setbacks. SHe may be hospice appropriate if family's goals were in line with comfort. Code Status: Full Code Plan: - LEGAL DECISON MAKER - Pt not clearly incapacitated to make medical decisions. Per [place] statutes proxy decision making. The patient's surviving daughter , Caitlyn. REcommend shared decision making. - CODE STATUS- full code - GOALS - Spoke with daughter Caitlyn briefly on the phone. Provided medical update. She requested that tube feedings be restarted immediately. Daughter and patient continue to express aggressive goals. - SYMPTOMS - * pain - multifactorial, acute and chronic. pt with recurrent idiopathic pancreatitis, recurrent choledocholithiasis, seems to have flareups of pain when her bile duct clogged, no evidence of this in most current labs. just back from GJ tube exchange. pt denies pain on my eval. no tenderness to palpation abd. on ursodiol and creon per GI as well as periodic ERCP when needed for obstruction. on PRN [place]. No other recommendations at this time * debility -multifactorial. Patient has had some weight loss and some physical decline since a fall 2 weeks ago. She has poor p.o. intake mostly 2/2 fear of abdominal pain. She gets tube feedings via GJ but this gives her diarrhea per family. unlikely she would do well with rehab given decline and poor PO intake. She also intermittently refuses rehab. PT following. d/c home pending , family has hired caregiver - Palliative care will continue to follow during hospital course as condition evolves, to assist patient/decision-maker with understanding of medical conditions, weighing benefits/burdens of treatment options, for clarification of goals of treatment. Additionally will assist with any symptoms of palliative concern Attestation Attestation: To help prompt me to consider important information that might be impacting today's encounter and assessment, information from prior notes written by myself or my colleagues may have been "brought forward" into today's note. My signature on this note, however, is an attestation that I personally performed the exam, history, and/or decision-making noted today, and, unless otherwise indicated, the interactions with patient, family, and staff as well as the review of records all occurred today. I also attest that the listed assessment and stated plan reflect my best clinical judgment today based on the combination of historical information, prior notes, and today's exam/ interactions. When time spent is documented, it refers only to time spent today by the signer, or if indicated, combined time spent today by collaborating physician/nurse practitioner.
--- NOTE | 2018-07-25 17:09 | P.DIET ---
Nutritional Evaluation Type of nutrition evaluation: follow-up Nutrition consult regarding: Tube Feeding Subjective Subjective Comments: Pt likes being on liquids only. She does not want to advance past this. Pt had J tube exchange today for a clogged J tube, she is currently NPO. Objective - Diagnosis Dehydration, WAYNE, Pancreatitis - Objective % IBW: 113 (VJX=[id number]#) Body Weight Used for Calculations: Actual (64.1kg) Energy Needs - Lower Range (kCal/kg): 25 Energy Needs - Upper Range (kCal/kg): 30 Lower Limit kCal/kg (kCals): 1,603 Upper Limit kCal/kg (kCals): 1,923 Lower Limit Protein Factor (Grams per Kg): 0.8 Upper Limit Protein Factor (Grams per Kg): 1.0 Lower Protein Needs (Protein): 51 Upper Protein Needs (Protein): 64 Fluid Factor (ml/kg): 25 Estimated Fluid Needs (ml): 1,603 Dietitian Reviewed in Medical Record: Current diet, Curent medications, Intake & Output, Labs, Medical history, Tube feeding Diet Order: TF w/ Tray, Full Liquids Objective Comments: Meds: Creon, Carafate, Prednisone Labs: BUN 58, Repairer Handtools 2.23, GFR 26 LBM 9/09 G/J tube placed Assessment Assessment: Pt is currently NPO b/c she had her J tube exchanged today. She was previously on Nepro tube feedings and says she was having issues tolerating them. Nepro is typically used for pt's who are on dialysis and fits the nutritional requirements of those pt's better. In this case, it is okay to continue w/ Nepro @ 40mls/hr but her renal labs should be monitored. She prefers a liquid diet, therefore 100% of her nutrition needs come from her TFs. Continuous TFs via J tube, I would not recommend anything else go through pt's J tube since she continues to have c/o diarrhea r/t her TFs. Continue current POC. RD following. Recommendations: 1. Okay to continue Nepro @ 40mls/hr for this non-dialysis pt. 2. Monitor renal labs while on Nepro TFs. 3. Only TF should go through pt's J tube. Dietitian to Monitor: Lab values, Renal labs, Intake & Output, Tube feeding tolerance, Weight change, PO Intake, Medical course
[2018-07-26] MEDS: Sod Chloride 0.9% Inj 1,000 ML IV.CONT SCH (01:04)
[2018-07-26 08:44] VITALS: RESP 18; TEMP 98.4
[2018-07-26] MEDS: Sucralfate 1 GM Tablet PO SCH (08:48)
[2018-07-26] MEDS: Metoprolol Tartrate 25 MG Tablet PO SCH (08:48)
[2018-07-26] MEDS: amLODIPine 5 MG Tablet PO SCH (08:48)
[2018-07-26] MEDS: Lipase/Protease/Amylase 12/38/60 DR Capsule PO SCH (08:48)
[2018-07-26] MEDS: predniSONE 10 MG Tablet PO SCH (08:49)
[2018-07-26 12:27] VITALS: BP 140/75; PULSE 80; O2SAT 100
--- NOTE | 2018-07-26 15:10 | P.DS ---
<Guadalupe Monson E - Last Filed: 07/26/18 14:51> Date of admission: 07/17/18 21:47 Primary care physician: Hong Peterson MD Attending physician on discharge: Alexander Eddy Anticipated date of discharge: 07/26/18 Brief History from admission: Mrs. Larsen is an 82 yo female with hx chronic idiopathic pancreatitis, GJ tube placement, biliary stent placement, CKD, admitted 07/17/18 with complaints of abdominal pain. On admission labs remarkable for WBC 26.1 with left shift, lipase 632, creatinine 3.33, BUN 51, albumin 2.5. CXR showed mild worsening right lung basilar atelectasis. CT was not significantly changed from prior, showed GJ tube, biliary stent. She was recently admitted 06/30 - 07/13 for epigastric and RUQ abd pain, diarrhea. She had ERCP and metal stent placement . Her bile duct was full of debris, stones. GI recommended stent exchange in 4-5 months. At time of d/c family refused SNF placement. She was d/c home with home health. At home she was taking norco q6h for abd pain. In the past she has been evaluated by GI at [place]. DS: Diagnosis - Discharge Diagnosis (1) Abdominal pain Status: Acute (2) Acute on chronic kidney failure Status: Acute (3) Idiopathic pancreatitis Status: Acute (4) HTN (hypertension) Status: Chronic DS: Medications - Discharge Medications Prescriptions: hydrocodone-acetaminophen [[place]] 1 tab PO Q4H PRN #18 tab PRN Reason: Pain DS: Summary Hospital Course: Idiopathic pancreatitis - Ms. Larsen is an 82 y/o AAF with recurrent idiopathic pancreatitis. She has been hospitalized numerous times for issues with pain control related to recurrent pancreatitis. Her last admission was from 03/03/18 to 03/28/18 and she had biliary obstruction at that time. During that admission she underwent evaluation with ERCP (03/03/18) which noted multiple stones, migrated metal stent up into CBD, could not put plastic stent due to "kink" in current stent according to GI notes. She required PTC placement on 03/04 by IR which noted severe obstruction of the proximal common bile duct stent with very challenging recanalization requiring multiple wires and catheters. biliary stent placement. She had to have a repeat ERCP (03/07/18) and had to have the metal stent cleared of debris and they were able to confirm complete clearance of the stent with good emptying through the stent. She had a percutaneous cholangiogram on where the external portion of biliary drain was removed and the report showed some small hyperplasia within the distal aspect of the biliary stent but there is a patent channel down to the small bowel. Pt previously underwent ERCP on 05/23/18 with balloon sweep of stone fragments/debris from metal stent and placement of new stent. She had GJ tube exchange 05/24/18 with IR and Mesenteric angio with IR 05/24/19 with patent vessels. [place] [facility] [place] with continued abdominal pain that is similar to her previous pancreatitis pain. Her labs at that time revealed WBC count 30.1, Cr 5.57 /BUN 73, Lipase 234, TBili 0.3, AST 15, ALT 11 , AlkPhos 139. Pt had ERCP and metal stent placement 06/30, the images demonstrate a metallic stent in the mid and distal common bile duct. The stent is traversed with a guidewire which extends into the intrahepatic bile ducts. The final image demonstrates a plastic stent within the metallic stent. The intrahepatic bile ducts do not appear to be significantly dilated. Pt underwent exchange of G/J tube 07/11/18. She was discharged on 07/13 and now readmitted again in less than a week at home with recurrent abdomen pain. She was again noted to have a/ckd 3 at admission but this did improve with IVF back to around baseline. Her tube feeds were stopped initially but were able to be resumed and placed back to goal. Pt had issues with pain control during admission. Pt was seen by PT daily to sustain her physical strength. Her diet was able to be advanced to liquids but pt did not want to progress past that due to increased abd pain with solid foods. There were intermittent issues with her J-tube NOT flushing. Her GJ tube had to be exchanged on 07/25/18. Her TF were able to be resumed after GJ tube exchanged and pt tolerated TF well. She will be discharged on her previous TF regimen which she was doing prior to admission. Press Leader recommended: - continue Nepro @ 40mls/hr for this non-dialysis pt. - Monitor renal labs while on Nepro TFs. - Only TF should go through pt's J tube. Pt is to followup with her PCP, Dr. Peterson, in 1 week Acute on chronic kidney failure - Pt with baseline stage 3 CKD, pt follows with Dr. Melara - see above HTN (hypertension) - Cont. home meds - Monitor GERD (gastroesophageal reflux disease) - PPI - Time Spent with Patient Total time spent providing and/or coordinating discharge services: Greater than 30 minutes - Quality: VTE Deep Vein Thrombosis/Pulmonary Embolism Present on Admission: No Exam Vital signs: Vital Signs 07/25/18 20:00 07/26/18 00:00 07/26/18 08:00 Temperature 98.2 F 97.8 F 98.4 F Pulse Rate 81 76 93 H Respiratory Rate 16 16 18 Blood Pressure 153/76 H 165/73 H 148/75 H Pulse Oximetry 100 100 99 07/26/18 12:00 Temperature 98.4 F Pulse Rate 80 Respiratory Rate 18 Blood Pressure 140/75 Pulse Oximetry 100 Intake & Output 07/25/18 07/26/18 07/26/18 18:59 06:59 18:59 Intake Total 1000 / 1000 Balance 1000 / 1000 Weight 68 kg Intake: IV 1000 / 1000 NS Inj 1,000 ML @ 100 mls/hr IV 1000 / 1000 .CONT .Q10H HITESH Rx#:[id number] Other: # Voids 2 2 Date of Last Bowel Movement 07/24/18 07/24/18 # Bowel Movements 0 Results Procedures completed during hospitalization: See above - Impressions ITS Impressions Chest X-Ray 07/17/18 19:53 CONCLUSION: Slight worsening right lung base atelectasis. Abdomen/Pelvis CT 07/17/18 19:55 CONCLUSION: Stable examination not significantly changed. Tube Change 07/25/18 00:00 CONCLUSION: 1. Uncomplicated gastrojejunostomy tube exchange as above. <Alexander Eddy - Last Filed: 08/05/18 00:21> Date of admission: 07/17/18 21:47 Primary care physician: Hong Peterson MD DS: Diagnosis - Discharge Diagnosis (1) Abdominal pain Status: Acute (2) Acute on chronic kidney failure Status: Acute (3) Idiopathic pancreatitis Status: Acute (4) HTN (hypertension) Status: Chronic (5) GERD (gastroesophageal reflux disease) Status: Acute (6) Gastroparesis Status: Acute (7) Anemia Status: Chronic DS: Summary Hospital Course: Patient examined. Assessment and plan formulated with Guadalupe Monson PA-C. I agree with the above. - Time Spent with Patient Total time spent providing and/or coordinating discharge services: Results - Impressions ITS Impressions Chest X-Ray 07/17/18 19:53 CONCLUSION: Slight worsening right lung base atelectasis. Abdomen/Pelvis CT 07/17/18 19:55 CONCLUSION: Stable examination not significantly changed. Tube Change 07/25/18 00:00 CONCLUSION: 1. Uncomplicated gastrojejunostomy tube exchange as above. Discharge Plan - Discharge Order Discharge Orders: Discharge Order (Routine); Ordered 07/26/18 Ordered By: Bryan Quezada - Discharge Details Anticipated Discharge Date: 07/26/18 Discharge Comment: Followup with Dr. Peterson in 1 week, call for an appt. - Physicians Team Primary Care Provider: Hong Peterson Attending Provider: Alexander Eddy Other Providers: Salvatore Dobbs MD ; [facility]
== END 2018-07-26 14:30 | disposition home health service (06) ==
LOC: NEPE 18:09 → NEDA 21:47 → N06 23:00 → NEDA 23:01
PROVIDERS: ADMIT Hospitalist; ATTEND Hospitalist

== ENCOUNTER 2018-07-28 00:50 | Inpatient (IN) ==
[2018-07-28] MEDS ORDERED: Morphine Inj 4 MG/ML Vial IV.PUSH ONE (01:18)
--- NOTE | 2018-07-28 01:37 | ED ---
HPI General Chief complaint: Nausea/Vomiting/Diarrhea Stated complaint: abd pain Time Seen by Provider: 07/28/18 01:06 Source: patient, family, RN notes reviewed and old records reviewed Mode of arrival: ambulatory History of Present Illness HPI narrative: 82yF presenting with abdominal pain and nausea. The patient has had multiple recent admissions for pancreatitis and problems with J tube; over the past 5 months she has required G/J tube placement and ERCP with CBD stent placement. Her most recent admission was from 07/13-07/26 for idiopathic pancreatitis, acute kidney injury, J tube exchange on 07/25, and was discharged home. She says that she's always had mild epigastric pain during this whole admission, but earlier this evening it again became more severe and is associated with nausea but not vomiting. Denies fever or chills, chest pain, cough, difficulty flushing J tube, or diarrhea. Related Data Home Medications Medication Instructions Recorded Confirmed [id number] [[place]] 1 tab PO TIDPC 05/16/18 07/17/18 magnesium hydroxide [[place] 311 mg PO QID PRN 05/16/18 07/17/18 of Magnesia] metoprolol tartrate 25 mg PO BID 05/16/18 07/17/18 pantoprazole 40 mg PO BID 05/16/18 07/17/18 sucralfate 1 g PO TID 05/16/18 07/17/18 Previous Rx's Medication Instructions Recorded amlodipine [Norvasc] 5 mg PO DAILY tab 07/13/18 duloxetine [Cymbalta] 20 mg PO DAILY cap 07/13/18 prednisone 10 mg PO DAILY #5 tab 07/13/18 ursodiol [Actigall] 300 mg PO BID cap 07/13/18 water for injection, sterile 200 ml G-TUBE Q6HR ml 07/13/18 hydrocodone-acetaminophen [[place]] 1 tab PO Q4H PRN #18 tab 07/24/18 Allergies Allergy/AdvReac Type Severity Reaction Status Date / Time No Known Allergies Allergy Unverified 05/16/18 07:25 Review of Systems ROS: all other systems reviewed are negative PMFSH History History Provided By: Patient Medical History Medical History Anxiety (Acute) CKD (chronic kidney disease) stage 3, GFR 30-59 ml/min (Acute) Encounter for gastrojejunal (GJ) tube placement (Acute) GERD (gastroesophageal reflux disease) (Acute) Hx of blood transfusion reaction (Acute) Hypertension (Acute) Idiopathic pancreatitis (Acute) Pancreatitis (Acute) Family History Family History Other Family history non-contributory Social History Social History Substance History: No History of Abuse Second Hand Smoke Exposure: No Smoking Status: Never smoker How Often Do You Have a Drink Containing Alcohol: Never Recent Travel in [facility] within the Last 8 Weeks: No Recent Out of Country Travel within the Last 8 Weeks: No Immunization History Tetanus Immunization: <5 Years Hx Influenza Vaccine This Season: Yes Exam Const Other: Appears uncomfortable, no distress HENMT Head: normocephalic and atraumatic Face and sinus: normal facial exam Eyes General: appearance normal, both eyes and all related structures Pupils: PERRL Chest Chest: normal inspection of the chest Resp Effort & Inspection: normal respiratory effort Auscultation: no rhonchi and no wheezes Cardio Rate: regular rate Rhythm: regular rhythm GI Other: Soft, non-distended, moderate diffuse tenderness, no guarding or rebound Feeding tube present in left upper abdomen, no surrounding erythema Skin General: no rashes or lesions noted Neuro General: alert, awake, oriented x3 and no focal motor deficits Psych Affect: normal affect Course Initial Documented Vital Signs Temperature 98.9 F 07/28/18 00:54 Pulse Rate 95 H 07/28/18 00:54 Respiratory Rate 20 07/28/18 00:54 Blood Pressure 119/73 07/28/18 00:54 Pulse Oximetry 99 07/28/18 00:54 Last Documented Vital Signs Temperature 98.3 F 07/28/18 01:06 Pulse Rate 87 07/28/18 01:06 Respiratory Rate 20 07/28/18 01:06 Blood Pressure 131/65 07/28/18 01:06 Pulse Oximetry 99 07/28/18 01:06 Medical Decision Making MDM Narrative Medical decision making narrative: Assessment: 82yF presenting with abdominal pain and nausea Plan: Pain control, antiemetics Labs CT abd/ pelvis Addendum: Patient found to have recurrent pancreatitis, will need to stay in the hospital for IV fluids, pain control, and re-evaluation at frequent intervals. Patient understands and agrees with plan. Case discussed with Dr[facility] of [facility]. Medical Screen Exam Complete: Yes Emergency Medical Condition: Yes Differential Diagnosis Differential Diagnosis: Differential diagnosis includes, but is not limited to: recurrent pancreatitis, G/J tube displacement, SBO, biliary colic, electrolyte abnormality, dehydration Lab Data Lab results reviewed: Yes I reviewed the patient's lab results. Result diagrams: 07/28/18 01:25 07/28/18 01:25 Lab Results 07/28/18 07/28/18 07/28/18 Range/Units 01:25 01:25 01:30 WBC 21.6 H (4.0-11.0) th/mm3 RBC 3.42 L (4.00-5.30) mil/mm3 Hgb 9.9 L (11.6-15.3) gm/dL Hct 30.2 L (35.0-46.0) % MCV 88.3 (80.0-100.0) fL MCH 29.0 (27.0-34.0) pg MCHC 32.8 (32.0-36.0) % RDW 18.3 H (11.6-17.2) % Plt Count 481 H D (150-450) th/mm3 MPV 8.2 (7.0-11.0) fL Prelim Diff (Auto) Slide review pending Neut % (Auto) 91.9 H (16.0-70.0) % Lymph % (Auto) 4.1 L (9.0-44.0) % [place] % (Auto) 2.2 (0.0-8.0) % Eos % (Auto) 1.4 (0.0-4.0) % Baso % (Auto) 0.4 (0.0-2.0) % Neut # (Auto) 19.9 H (1.8-7.7) th/mm3 Lymph # (Auto) 0.9 L (1.0-4.8) th/mm3 [place] # (Auto) 0.5 (0.0-0.9) th/mm3 Eos # (Auto) 0.3 (0.0-0.4) th/mm3 Baso # (Auto) 0.1 (0.0-0.2) th/mm3 WBC Differential Manual diff final Seg Neuts % (Manual) 86 H (16-70) % Band Neuts % (Manual) 3 (0-6) % Lymphocytes % (Manual) 6 L (9-44) % Monocytes % (Manual) 3 (0-8) % Basophils % (Manual) 1 (0-2) % Metamyelocytes % (Man) 1 (0-1) % Abs Neuts (Manual) 19.4 H (1.8-7.7) th/mm3 Differential Comment . Toxic Vacuolation Present H (None) Platelet Estimate High H (Normal) Platelet Morphology Normal (Normal) Keratocytes Occ H (None) Sodium 144 (136-145) meq/L Potassium 3.7 (3.5-5.1) meq/L Chloride 106 (98-107) meq/L Carbon Dioxide 26.6 (21.0-32.0) meq/L Anion Gap 11 (5-15) meq/L BUN 44 H (7-18) mg/dL Creatinine 2.60 H (0.50-1.00) mg/dL Random Glucose 95 (74-106) mg/dL Lactic Acid 0.9 (0.4-2.0) mmol/L Calcium 8.2 L (8.5-10.1) mg/dL Total Bilirubin 0.3 (0.2-1.0) mg/dL AST 8 L (15-37) U/L ALT 14 (10-53) U/L Alkaline Phosphatase 70 (45-117) U/L Total Protein 7.1 (6.4-8.2) g/dL Albumin 2.7 L (3.4-5.0) g/dL Lipase 2673 H (73-393) U/L Imaging Data Radiologist's impression: Abdomen/Pelvis CT 07/28/18 01:18 CONCLUSION: 1. Postoperative changes of biliary stent with biliary drainage catheter passing through the stent. Gastrojejunostomy tube again noted. 2. Mild stranding of fat around the pancreas could indicate a mild pancreatitis. 3. 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 ECG Data Attestation: I personally reviewed and interpreted this ECG as follows: Interpretation: Rate: 84 BPM Rhythm: Sinus [place]: Normal Intervals: Normal intervals, no blocks, QTc 407 ms Q waves: III T waves: Inverted in aVL ST segments: No elevations or depressions Impression: Non-specific EKG, no changes as compared to EKG from 07/17/2018. Discharge Plan Discharge Disposition Patient Disposition: 30 Still Patient Discharge Condition Condition: Stable Discharge Details Diagnosis: Idiopathic pancreatitis, Leukocytosis Physicians Team ED Provider: Tika Ward Primary Care Provider: Hong Peterson Attending Provider: Alexander Eddy Status ED Status: Admitted Patient
[2018-07-28 01:46] LABS: Baso # (Auto) 0.1 th/mm3 (0.0-0.2); Baso % (Auto) 0.4 % (0.0-2.0); Eos # (Auto) 0.3 th/mm3 (0.0-0.4); Eos % (Auto) 1.4 % (0.0-4.0); Hematocrit 30.2 % (35.0-46.0); Hemoglobin 9.9 gm/dL (11.6-15.3); Lymph # (Auto) 0.9 th/mm3 (1.0-4.8); Lymph % (Auto) 4.1 % (9.0-44.0); Mean Corpuscular HGB Conc 32.8 % (32.0-36.0); Mean Corpuscular Volume 88.3 fL (80.0-100.0); Mean Platelet Volume 8.2 fL (7.0-11.0); Mono # (Auto) 0.5 th/mm3 (0.0-0.9); Mono % (Auto) 2.2 % (0.0-8.0); Neut # (Auto) 19.9 th/mm3 (1.8-7.7); Neut % (Auto) 91.9 % (16.0-70.0); Platelet Count 481 th/mm3 (150-450); Red Blood Count 3.42 mil/mm3 (4.00-5.30); Red Cell Distribution Width 18.3 % (11.6-17.2); White Blood Count 21.6 th/mm3 (4.0-11.0)
[2018-07-28 01:59] LABS: Alanine Aminotransferase 14 U/L (10-53); Albumin 2.7 g/dL (3.4-5.0); Anion Gap 11 meq/L (5-15); Aspartate Aminotransferase 8 U/L (15-37); Blood Urea Nitrogen 44 mg/dL (7-18); Calcium 8.2 mg/dL (8.5-10.1); Carbon Dioxide 26.6 meq/L (21.0-32.0); Chloride 106 meq/L (98-107); Glucose,Random 95 mg/dL (74-106); Potassium 3.7 meq/L (3.5-5.1); Sodium 144 meq/L (136-145)
[2018-07-28 02:01] LABS: Alkaline Phosphatase 70 U/L (45-117); Lipase 2673 U/L (73-393); Total Protein 7.1 g/dL (6.4-8.2)
[2018-07-28 02:17] LABS: Lymphocytes 6 % (9-44); Metamyelocytes 1 % (0-1); Monocytes 3 % (0-8); Platelet Morphology Normal (Normal)
--- NOTE | 2018-07-28 02:17 | CT ---
EXAM DATE: 07/28/2018 2:03 AM EDT AGE/SEX: 82 years / Female INDICATIONS: Upper abdominal pain with vomiting and diarrhea. CLINICAL DATA: This is the patient's initial encounter. Patient reports that signs and symptoms have been present for 1 day and indicates a pain score of 6/10. MEDICAL/SURGICAL HISTORY: Renal disease. Gastroesophageal reflux disease. Pancreatitis. Georgette cystectomy. GJ Tube. RADIATION DOSE: 6.64 CTDI (mGy) COMPARISON: [facility] [place] ABDOMEN & PELVIS W/O CONTRAST, 07/17/2018. . TECHNIQUE: Multiple contiguous axial images were obtained through the abdomen. Images were obtained using multiple row detector helical technique. Using automated exposure control and adjustment of the mA and/or kV according to patient size, radiation dose was kept as low as reasonably achievable to o btain optimal diagnostic quality images. DICOM format image data is available electronically for rev iew and comparison. FINDINGS: Mild left basilar atelectasis and scarring. Biliary stent is present with biliary drainage catheter p assing through the biliary stent in the common bile duct. Feeding gastrojejunostomy tube is present. No new findings within the liver, spleen, adrenals. There is some stranding of fat around the pancrea s which may indicate a mild pancreatitis. No significant free fluid. No free air. No bowel obstruction. No pelvic masses. Grade 1 anterolisthes is of L5 on S1 with lateral pars defects present. Advanced degenerative disc disease in the lower lum bar spine. CONCLUSION: 1. Postoperative changes of biliary stent with biliary drainage catheter passing through the stent. Gastrojejunostomy tube again noted. 2. Mild stranding of fat around the pancreas could indicate a mild pancreatitis. 3. Stable degenerative change and anterolisthesis at the lumbosacral junction with bilateral pars de fects. Electronically signed by: Jordon Gloria MD 07/28/2018 2:16 AM EDT
[2018-07-28 02:18] LABS: Toxic Vacuolation Present
[2018-07-28] MEDS ORDERED: HYDROmorphone PF Inj 0.5 MG/0.5 ML Syringe IV.PUSH SCH (02:45)
[2018-07-28] MEDS: HYDROmorphone PF Inj 2 MG/ML Vial IV.PUSH SCH (02:50)
[2018-07-28] MEDS: HYDROmorphone PF Inj 2 MG/ML Vial IV.PUSH PRN ×3 (04:57→23:35)
[2018-07-28] MEDS: Sodium Chloride 0.45 % Inj 1,000 ML IV.CONT SCH ×2 (05:56→20:11)
--- NOTE | 2018-07-28 08:54 | P.HP ---
<Bryan Quezada - Last Filed: 07/28/18 12:09> History of Present Illness Primary Care Physician: Hong Peterson MD - Diagnosis (1) Idiopathic pancreatitis Inpatient Certification: I certify that the inpatient services were ordered in accordance with Medicare regulations governing the order. This includes certification that hospital inpatient services are reasonable and necessary and in the case of services not specified as inpatient-only under 42 CFR 419.22(n), that they are appropriately provided as inpatient services in accordance to with the 2-midnight benchmark under 43 CFR 412.3(e) [facility] - Medical History Medical History: Medical History (Last Reviewed 07/28/18 @ 01:42 by Tika Ward DO) Anxiety CKD (chronic kidney disease) stage 3, GFR 30-59 ml/min Encounter for gastrojejunal (GJ) tube placement GERD (gastroesophageal reflux disease) Hx of blood transfusion reaction Hypertension Idiopathic pancreatitis Pancreatitis - Surgical History Surgical History: Surgical History (Last Reviewed 07/28/18 @ 00:55 by Fabiano Oates RN) History of total left knee replacement (TKR) Hx of cholecystectomy S/P ERCP - Family History Family History: Family History (Last Reviewed 07/28/18 @ 01:42 by Tika Ward DO) Other Family history non-contributory Medications and Allergies Allergies Allergy/AdvReac Type Severity Reaction Status Date / Time No Known Allergies Allergy Unverified 05/16/18 07:25 Home Medications Medication Instructions Recorded Confirmed Type [id number] [Creon] 1 tab PO TIDPC 05/16/18 07/30/18 History magnesium hydroxide [Presley Milk 311 mg PO QID PRN 05/16/18 07/30/18 History of Magnesia] metoprolol tartrate 25 mg PO BID 05/16/18 07/30/18 History pantoprazole 40 mg PO BID 05/16/18 07/30/18 History sucralfate 1 g PO TID 05/16/18 07/30/18 History Active Medications: Active Medications Hydrocodone Bitart/Acetaminophen ([place] 5/325) 1 tab PO Q4H PRN PRN Reason: Pain 2-10 Last Admin: 07/28/18 09:01 Dose: 1 tab Al Hydroxide/Mg Hydroxide (Milk Of Magnesia Liq) 30 ml PO QID PRN PRN Reason: CONSTIPATION Amlodipine Besylate (Norvasc) 5 mg PO DAILY [facility] Last Admin: 07/28/18 09:57 Dose: 5 mg Lipase/Protease/Amylase (Mando Kapoor ) 1 cap PO TIDPC [facility] Last Admin: 07/28/18 09:57 Dose: 1 cap Duloxetine HCl (Cymbalta) 20 mg PO DAILY [facility] Last Admin: 07/28/18 09:57 Dose: 20 mg Hydromorphone HCl (Dilaudid Pf Inj) 0.5 mg IV.PUSH ONCE [facility] Last Admin: 07/28/18 02:50 Dose: 0.5 mg Hydromorphone HCl (Dilaudid Pf Inj) 0.5 mg IV.PUSH Q6HR PRN PRN Reason: BREAKTHROUGH PAIN Last Admin: 07/28/18 04:57 Dose: 0.5 mg Sodium Chloride (1/2 Normal Saline Inj) 1,000 mls @ 70 mls/hr IV.CONT .[id number] [facility] Last Admin: 07/28/18 05:56 Dose: 70 mls/hr Metoprolol Tartrate (Lopressor) 25 mg PO BID [facility] Last Admin: 07/28/18 09:57 Dose: 25 mg Ondansetron HCl (Zofran Inj) 4 mg IV.PUSH Q6HR PRN PRN Reason: NAUSEA/VOMITING Last Admin: 07/28/18 04:55 Dose: 4 mg Pantoprazole Sodium (Protonix) 40 mg PO BID [facility] Last Admin: 07/28/18 09:57 Dose: 40 mg Sodium Chloride (Ns Flush) 2 ml IV.FLUSH PRN PRN PRN Reason: FLUSH AFTER USING IV ACCESS Last Admin: 07/28/18 04:58 Dose: 2 ml Sterile Water (Free Water) 200 ml G-TUBE Q6HR [facility] Sucralfate (Carafate) 1 gm PO TID [facility] Last Admin: 07/28/18 09:57 Dose: 1 gm Ursodiol (Actigall) 300 mg PO BID [facility] Last Admin: 07/28/18 09:57 Dose: 300 mg Exam Vital signs: Vital Signs 07/28/18 00:54 07/28/18 01:06 07/28/18 01:18 Temperature 98.9 F 98.3 F Pulse Rate 95 H 87 84 Respiratory Rate 20 20 Blood Pressure 119/73 131/65 Pulse Oximetry 99 99 07/28/18 04:55 07/28/18 05:00 07/28/18 07:59 Temperature 98.3 F Pulse Rate 95 H 86 93 H Respiratory Rate 20 18 18 Blood Pressure 150/74 H 138/66 150/70 H Pulse Oximetry 99 99 98 07/28/18 08:00 Temperature 98.6 F Pulse Rate 104 H Respiratory Rate Blood Pressure 167/81 H Pulse Oximetry 97 Intake & Output 07/27/18 07/28/18 07/28/18 18:59 06:59 18:59 Weight 61.4 kg Other: Date of Last Bowel Movement 07/27/18 07/27/18 Weight On Admission 61.4 kg Results - Labs CBC & Chem 7: 07/28/18 01:25 07/28/18 01:25 Labs: Laboratory Results - last 24 hr 07/28/18 07/28/18 07/28/18 01:25 01:25 01:30 WBC 21.6 H RBC 3.42 L Hgb 9.9 L Hct 30.2 L MCV 88.3 MCH 29.0 MCHC 32.8 RDW 18.3 H Plt Count 481 H D MPV 8.2 Prelim Diff (Auto) Slide review pending Neut % (Auto) 91.9 H Lymph % (Auto) 4.1 L [place] % (Auto) 2.2 Eos % (Auto) 1.4 Baso % (Auto) 0.4 Neut # (Auto) 19.9 H Lymph # (Auto) 0.9 L [place] # (Auto) 0.5 Eos # (Auto) 0.3 Baso # (Auto) 0.1 WBC Differential Manual diff final Seg Neuts % (Manual) 86 H Band Neuts % (Manual) 3 Lymphocytes % (Manual) 6 L Monocytes % (Manual) 3 Basophils % (Manual) 1 Metamyelocytes % (Man) 1 Abs Neuts (Manual) 19.4 H Differential Comment . Toxic Vacuolation Present H Platelet Estimate High H Platelet Morphology Normal Keratocytes Occ H Sodium 144 Potassium 3.7 Chloride 106 Carbon Dioxide 26.6 Anion Gap 11 BUN 44 H Creatinine 2.60 H Random Glucose 95 Lactic Acid 0.9 Calcium 8.2 L Total Bilirubin 0.3 AST 8 L ALT 14 Alkaline Phosphatase 70 Total Protein 7.1 Albumin 2.7 L Lipase 2673 H - Imaging Impressions Abdomen/Pelvis CT 09/13/18 01:18 CONCLUSION: 1. Postoperative changes of biliary stent with biliary drainage catheter passing through the stent. Gastrojejunostomy tube again noted. 2. Mild stranding of fat around the pancreas could indicate a mild pancreatitis. 3. 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 Caprini VTE Risk Assessment Caprini Risk Assessment Model: Point Value = 1 Point Value = 2 Point Value = 3 Point Value = 5 Age 41-60 Minor surgery BMI > 25 kg/m2 Swollen legs Varicose veins or History of unexplained or recurrent spontaneous Oral contraceptives or hormone replacement Sepsis (< 1 month) Serious lung disease, including pneumonia (< 1 month) Abnormal pulmonary function Acute myocardial infarction Congestive heart failure (< 1 month) History of inflammatory bowel disease Medical patient at bed rest Age 61-74 Arthroscopic surgery Major open surgery (> 45 min) Laparoscopic surgery (> 45 min) Malignancy Confined to bed (> 72 hours) Immobilizing plaster cast Central venous access Age >= 75 History of VTE Family history of VTE Factor V Leiden Prothrombin [id number] Lupus anticoagulant Anticardiolipin antibodies Elevated serum homocysteine Heparin-induced thrombocytopenia Other congenital or acquired thrombophilia Stroke (< 1 month) Elective arthroplasty Hip, pelvis, or leg fracture Acute spinal cord injury (< 1 month) Prophylaxis Regimen: Total Risk Factor Score Risk Level Prophylaxis Regimen 0-1 Low Early ambulation 2 Moderate Order ONE of the following: *Sequential Compression Device (SCD) *Heparin 5000 units SQ BID 3-4 Higher Order ONE of the following medications: *Heparin 5000 units SQ TID *Enoxaparin/Lovenox 40 mg SQ daily (WT < 150 kg, CrCl > 30 mL/min) *Enoxaparin/Lovenox 30 mg SQ daily (WT < 150 kg, CrCl > 10-29 mL/min) *Enoxaparin/Lovenox 30 mg SQ BID (WT < 150 kg, CrCl > 30 mL/min) AND/OR *Sequential Compression Device (SCD) 5 or more Highest Order ONE of the following medications: *Heparin 5000 units SQ TID (Preferred with Epidurals) *Enoxaparin/Lovenox 40 mg SQ daily (WT < 150 kg, CrCl > 30 mL/min) *Enoxaparin/Lovenox 30 mg SQ daily (WT < 150 kg, CrCl > 10-29 mL/min) *Enoxaparin/Lovenox 30 mg SQ BID (WT < 150 kg, CrCl > 30 mL/min) AND *Sequential Compression Device (SCD) Assessment and Plan - Assessment (1) Idiopathic pancreatitis Code(s): K85.00 - Idiopathic acute pancreatitis without necrosis or infection Status: Acute Plan: The exam, history, and the medical decision-making described in the above note were completed with the assistance of the mid-level provider. I reviewed and agree with the findings presented. I attest that I had a [id number] encounter with the patient on the same day, and personally performed and documented my assessment and findings in the medical record. acute pancreatitis. gi consult to assure biliary stents patent. IVF and npo. prn pain control. pt looked comfortable when I saw her. <Olga Weiss W - Last Filed: 07/29/18 17:59> History of Present Illness Primary Care Physician: Hong Peterson MD Chief Complaint: abd pain History of Present Illness: Ms. Larsen is an 82 y/o AAF with recurrent idiopathic pancreatitis. She has been hospitalized numerous times for issues with pain control related to recurrent pancreatitis. Her last admission was from 07/13/18 to 07/26/18 due to WAYNE, idiopathic pancreatitis and had her GJ tube exchanged 07/25/18. Pt was seen in the ED at [facility] [place] with abdominal pain. She had a CT Abd/ pelvis during that visit which noted portal venous stent, s/p cholecystectomy, GJ tube in place. Pts lipase was 110 at that time, Cr is 3.51/BUN 38, and WBC count 11. Pt was diagnosed with a UTI and given Keflex BID x 7 days. The urine culture noted probable contaminants. She was seen back in the ED on 04/30/18 with the same abdominal pain. Her labs at that time noted WBC count 17.1, Cr 3.72/BUN 35, GFR 14, Lipase 211. She was treated with supportive care, IVF and pain meds and improved and was discharged back to home. Pt presented back to the ED at [facility] [place] on [place]/16/18 with continued abdominal pain since her last admission per the pt but has been worse the last 3 weeks. She relates the pain to food intake which gradually worsens after eating. Pt also gets continuous TF at night. Pt has been having normal BMs. Denies any fevers or chills. She reports that the pain is the same pain that she has had previously with her pancreatitis. She has been trying to use [place] at night for the pain but its not helping. Her labs in the ED revealed WBC count 18.2, Cr 4.56/BUN 60, Lipase 350. Her LFTs were mostly WNL with TBili 0.3, AST 17, ALT less than 6, AlkPhos 211. She had a CT Abd/pelvis w/o IV contrast in the ED which noted stable and grossly unremarkable follow-up CT scan of the abdomen and pelvis compared to the prior study on 04/24/18, stable tiny 2 mm nonobstructing stone right kidney, and stable 1.4 cm right renal cyst. Pt reports that she was seen as an outpt by GI and was being set up for a repeat ERCP for stent exchange. Her UA was abnormal in the ED and he was given Rocephin. Pt presented back to the ED at [facility] [place] on 06/29/18 with continued abdominal pain that is similar to her previous pancreatitis pain. Her labs at that time revealed WBC count 30.1, Cr 5.57 /BUN 73, Lipase 234, TBili 0.3, AST 15, ALT 11 , AlkPhos 139. Pt had ERCP and metal stent placement 06/30, the images demonstrate a metallic stent in the mid and distal common bile duct. The stent is traversed with a guidewire which extends into the intrahepatic bile ducts. The final image demonstrates a plastic stent within the metallic stent. The intrahepatic bile ducts do not appear to be significantly dilated. Pt underwent exchange of G/J tube 07/11/18. She was discharged on 07/13 and now readmitted again in less than a week at home with recurrent abdomen pain. She was again noted to have a/ckd 3 at admission but this did improve with IVF back to around baseline. Her tube feeds were stopped initially but were able to be resumed and placed back to goal. Pt had issues with pain control during admission. Pt was seen by PT daily to sustain her physical strength. Her diet was able to be advanced to liquids but pt did not want to progress past that due to increased abd pain with solid foods. There were intermittent issues with her J-tube NOT flushing. Her GJ tube had to be exchanged on 07/25/18. Her TF were able to be resumed after GJ tube exchanged and pt tolerated TF well. She was discharged on her previous TF regimen. Patient again presented to the ER last night due to worsening abd pain associated with nausea but no vomiting. Patient reprots that she always had mild epigastric pain, but yesterday evening it again became more severe and is associated with nausea but not vomiting. Denies fever or chills, chest pain, cough, difficulty flushing J tube, or diarrhea. On admission WBC 21.6, BUN 44, creatinine 2.[address] abd/pelvis was done and revealed: 1. Postoperative changes of biliary stent with biliary drainage catheter passing through the stent. Gastrojejunostomy tube again noted. 2. Mild stranding of fat around the pancreas could indicate a mild pancreatitis. 3. 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 Medical History: Anxiety CKD (chronic kidney disease) stage 3, GFR 30-59 ml/min Encounter for gastrojejunal (GJ) tube placement GERD (gastroesophageal reflux disease) Hypertension Idiopathic pancreatitis Pancreatitis Surgical History: History of total left knee replacement (TKR) Hx of cholecystectomy S/P ERCP Social History: Patient lives at home with her daughter Denies ETOH use or tobacco use Family History: Family history reviewed non-contributory - Diagnosis (1) Idiopathic pancreatitis Inpatient Certification: I certify that the inpatient services were ordered in accordance with Medicare regulations governing the order. This includes certification that hospital inpatient services are reasonable and necessary and in the case of services not specified as inpatient-only under 42 CFR 419.22(n), that they are appropriately provided as inpatient services in accordance to with the 2-midnight benchmark under 43 CFR 412.3(e) Review of Systems All other systems reviewed negative except as stated in HPI PMFSH - History History Provided By: Patient - Medical History Medical History: Medical History (Last Reviewed 07/28/18 @ 01:42 by Tika Ward DO) Anxiety CKD (chronic kidney disease) stage 3, GFR 30-59 ml/min Encounter for gastrojejunal (GJ) tube placement GERD (gastroesophageal reflux disease) Hx of blood transfusion reaction Hypertension Idiopathic pancreatitis Pancreatitis - Surgical History Surgical History: Surgical History (Last Reviewed 07/28/18 @ 00:55 by Fabiano Oates RN) History of total left knee replacement (TKR) Hx of cholecystectomy S/P ERCP - Family History Family History: Family History (Last Reviewed 07/28/18 @ 01:42 by Tika Ward DO) Other Family history non-contributory - Tobacco History Second Hand Smoke Exposure: No Smoking Status: Never smoker - Alcohol History How Often Do You Have a Drink Containing Alcohol: Never - Substance Use History Substance History: No History of Abuse - Travel History Recent Travel in the [place] Within the Last 8 Weeks: No Recent Travel Out of the Country Within the Last 8 Weeks: No - Immunization History Tetanus Immunization: Unable to Assess Hx Influenza Vaccine This Season: Unable to Assess Medications and Allergies Active Medications: Active Medications Hydrocodone Bitart/Acetaminophen ([place] 5/325) 1 tab PO Q4H PRN PRN Reason: Pain 2-10 Amlodipine Besylate (Norvasc) 5 mg PO DAILY [facility] Lipase/Protease/Amylase (Mando Kapoor ) cap PO TIDPC [facility] Duloxetine HCl (Cymbalta) 20 mg PO DAILY [facility] Hydromorphone HCl (Dilaudid Pf Inj) 0.5 mg IV.PUSH ONCE [facility] Last Admin: 07/28/18 02:50 Dose: 0.5 mg Hydromorphone HCl (Dilaudid Pf Inj) 0.5 mg IV.PUSH Q6HR PRN PRN Reason: BREAKTHROUGH PAIN Last Admin: 07/28/18 04:57 Dose: 0.5 mg Sodium Chloride (1/2 Normal Saline Inj) 1,000 mls @ 70 mls/hr IV.CONT .[id number] [facility] Last Admin: 07/28/18 05:56 Dose: 70 mls/hr Metoprolol Tartrate (Lopressor) 25 mg PO BID [facility] Non-Formulary Medication (Water For Injection, Sterile [Water For Injection, Sterile]) 200 ml G-TUBE Q6HR [facility] Non-Formulary Medication (Magnesium Hydroxide [Presley Milk Of Magnesia]) 311 mg PO QID PRN PRN Reason: Constipation Ondansetron HCl (Zofran Inj) 4 mg IV.PUSH Q6HR PRN PRN Reason: NAUSEA/VOMITING Last Admin: 07/28/18 04:55 Dose: 4 mg Pantoprazole Sodium (Protonix) 40 mg PO BID [facility] Sodium Chloride (Ns Flush) 2 ml IV.FLUSH PRN PRN PRN Reason: FLUSH AFTER USING IV ACCESS Last Admin: 07/28/18 04:58 Dose: 2 ml Sucralfate (Carafate) 1 gm PO TID [facility] Ursodiol (Actigall) 300 mg PO BID [facility] Exam Vital signs: Vital Signs 07/28/18 00:54 07/28/18 01:06 07/28/18 01:18 Temperature 98.9 F 98.3 F Pulse Rate 95 H 87 84 Respiratory Rate 20 20 Blood Pressure 119/73 131/65 Pulse Oximetry 99 99 07/28/18 04:55 07/28/18 05:00 07/28/18 07:59 Temperature 98.3 F Pulse Rate 95 H 86 93 H Respiratory Rate 20 18 18 Blood Pressure 150/74 H 138/66 150/70 H Pulse Oximetry 99 99 98 Intake & Output 07/27/18 07/28/18 07/28/18 18:59 06:59 18:59 Weight 61.4 kg Other: Date of Last Bowel Movement 07/27/18 Weight On Admission 61.4 kg Narrative: GENERAL: This is a well-nourished, well-developed patient, in no apparent distress. CARDIOVASCULAR: Regular rate and rhythm RESPIRATORY: Clear to auscultation. Breath sounds equal bilaterally. GASTROINTESTINAL: Abdomen soft, tender RUQ, nondistended. hypoactive bowel sounds. MUSCULOSKELETAL: Extremities without clubbing, cyanosis, or edema. NEURO: Alert & Oriented. Moves all ext x4 Results - Labs CBC & Chem 7: 07/28/18 01:25 07/28/18 01:25 Labs: Laboratory Results - last 24 hr 07/28/18 07/28/18 07/28/18 01:25 01:25 01:30 WBC 21.6 H RBC 3.42 L Hgb 9.9 L Hct 30.2 L MCV 88.3 MCH 29.0 MCHC 32.8 RDW 18.3 H Plt Count 481 H D MPV 8.2 Prelim Diff (Auto) Slide review pending Neut % (Auto) 91.9 H Lymph % (Auto) 4.1 L [place] % (Auto) 2.2 Eos % (Auto) 1.4 Baso % (Auto) 0.4 Neut # (Auto) 19.9 H Lymph # (Auto) 0.9 L [place] # (Auto) 0.5 Eos # (Auto) 0.3 Baso # (Auto) 0.1 WBC Differential Manual diff final Seg Neuts % (Manual) 86 H Band Neuts % (Manual) 3 Lymphocytes % (Manual) 6 L Monocytes % (Manual) 3 Basophils % (Manual) 1 Metamyelocytes % (Man) 1 Abs Neuts (Manual) 19.4 H Differential Comment . Toxic Vacuolation Present H Platelet Estimate High H Platelet Morphology Normal Keratocytes Occ H Sodium 144 Potassium 3.7 Chloride 106 Carbon Dioxide 26.6 Anion Gap 11 BUN 44 H Creatinine 2.60 H Random Glucose 95 Lactic Acid 0.9 Calcium 8.2 L Total Bilirubin 0.3 AST 8 L ALT 14 Alkaline Phosphatase 70 Total Protein 7.1 Albumin 2.7 L Lipase 2673 H - Imaging Impressions Abdomen/Pelvis CT 07/28/18 01:18 CONCLUSION: 1. Postoperative changes of biliary stent with biliary drainage catheter passing through the stent. Gastrojejunostomy tube again noted. 2. Mild stranding of fat around the pancreas could indicate a mild pancreatitis. 3. 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 Caprini VTE Risk Assessment Caprini VTE Risk Assessment: Moderate/High Risk (score >= 2) Caprini Risk Assessment Model: Point Value = 1 Point Value = 2 Point Value = 3 Point Value = 5 Age 41-60 Minor surgery BMI > 25 kg/m2 Swollen legs Varicose veins or History of unexplained or recurrent spontaneous Oral contraceptives or hormone replacement Sepsis (< 1 month) Serious lung disease, including pneumonia (< 1 month) Abnormal pulmonary function Acute myocardial infarction Congestive heart failure (< 1 month) History of inflammatory bowel disease Medical patient at bed rest Age 61-74 Arthroscopic surgery Major open surgery (> 45 min) Laparoscopic surgery (> 45 min) Malignancy Confined to bed (> 72 hours) Immobilizing plaster cast Central venous access Age >= 75 History of VTE Family history of VTE Factor V Leiden Prothrombin [id number] Lupus anticoagulant Anticardiolipin antibodies Elevated serum homocysteine Heparin-induced thrombocytopenia Other congenital or acquired thrombophilia Stroke (< 1 month) Elective arthroplasty Hip, pelvis, or leg fracture Acute spinal cord injury (< 1 month) Prophylaxis Regimen: Total Risk Factor Score Risk Level Prophylaxis Regimen 0-1 Low Early ambulation 2 Moderate Order ONE of the following: *Sequential Compression Device (SCD) *Heparin 5000 units SQ BID 3-4 Higher Order ONE of the following medications: *Heparin 5000 units SQ TID *Enoxaparin/Lovenox 40 mg SQ daily (WT < 150 kg, CrCl > 30 mL/min) *Enoxaparin/Lovenox 30 mg SQ daily (WT < 150 kg, CrCl > 10-29 mL/min) *Enoxaparin/Lovenox 30 mg SQ BID (WT < 150 kg, CrCl > 30 mL/min) AND/OR *Sequential Compression Device (SCD) 5 or more Highest Order ONE of the following medications: *Heparin 5000 units SQ TID (Preferred with Epidurals) *Enoxaparin/Lovenox 40 mg SQ daily (WT < 150 kg, CrCl > 30 mL/min) *Enoxaparin/Lovenox 30 mg SQ daily (WT < 150 kg, CrCl > 10-29 mL/min) *Enoxaparin/Lovenox 30 mg SQ BID (WT < 150 kg, CrCl > 30 mL/min) AND *Sequential Compression Device (SCD) Assessment and Plan - Assessment (1) Idiopathic pancreatitis Code(s): K85.00 - Idiopathic acute pancreatitis without necrosis or infection Status: Acute Plan: Idiopathic pancreatitis Ms. Larsen is an 82 y/o AAF with recurrent idiopathic pancreatitis. She has been hospitalized numerous times for issues with pain control related to recurrent pancreatitis. Her last admission was from 07/13/18 to 07/26/18 due to WAYNE, idiopathic pancreatitis and had her GJ tube exchanged 07/25/18. Patient again presented to the ER last night due to worsening abd pain associated with nausea but no vomiting. Patient reprots that she always had mild epigastric pain, but yesterday evening it again became more severe and is associated with nausea but not vomiting. Denies fever or chills, chest pain, cough, difficulty flushing J tube, or diarrhea. - On admission WBC 21.6, BUN 44, creatinine 2.60 and lipase 2673. - CT abd/pelvis was done and revealed: 1. Postoperative changes of biliary stent with biliary drainage catheter passing through the stent. Gastrojejunostomy tube again noted. 2. Mild stranding of fat around the pancreas could indicate a mild pancreatitis. 3. 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 - NPO - IVF for hydration - PO and IV pain medication as needed - Consult GI - hold TF at this time chronic kidney failure - Pt with baseline stage 3 CKD, pt follows with Dr. Melara - avoid nephrotoxic agents HTN (hypertension) - Cont. home meds - Monitor GERD (gastroesophageal reflux disease) - PPI <Alexander Eddy - Last Filed: 07/31/18 12:42> History of Present Illness Primary Care Physician: Hong Peterson MD - Diagnosis (1) Idiopathic pancreatitis Inpatient Certification: I certify that the inpatient services were ordered in accordance with Medicare regulations governing the order. This includes certification that hospital inpatient services are reasonable and necessary and in the case of services not specified as inpatient-only under 42 CFR 419.22(n), that they are appropriately provided as inpatient services in accordance to with the 2-midnight benchmark under 43 CFR 412.3(e) [facility] - Medical History Medical History: Medical History (Last Reviewed 07/28/18 @ 01:42 by Tika Ward DO) Anxiety CKD (chronic kidney disease) stage 3, GFR 30-59 ml/min Encounter for gastrojejunal (GJ) tube placement GERD (gastroesophageal reflux disease) Hx of blood transfusion reaction Hypertension Idiopathic pancreatitis Pancreatitis - Surgical History Surgical History: Surgical History (Last Reviewed 07/28/18 @ 00:55 by Fabiano Oates RN) History of total left knee replacement (TKR) Hx of cholecystectomy S/P ERCP - Family History Family History: Family History (Last Reviewed 07/28/18 @ 01:42 by Tika Ward DO) Other Family history non-contributory Medications and Allergies Active Medications: Active Medications Acetaminophen (Tylenol) 650 mg PO Q6H PRN PRN Reason: TEMPERATURE > 101 F Last Admin: 07/31/18 07:31 Dose: 650 mg Hydrocodone Bitart/Acetaminophen ([place] 5/325) 1 tab PO Q4H PRN PRN Reason: Pain 2-10 Last Admin: 07/31/18 10:20 Dose: 1 tab Al Hydroxide/Mg Hydroxide (Milk Of Magnveena Liq) 30 ml PO QID PRN PRN Reason: CONSTIPATION Amlodipine Besylate (Norvasc) 5 mg PO DAILY [facility] Last Admin: 07/31/18 08:15 Dose: 5 mg Lipase/Protease/Amylase (Mando Kapoor ) 1 cap PO TIDPC [facility] Last Admin: 07/31/18 12:33 Dose: Not Given Duloxetine HCl (Cymbalta) 20 mg PO DAILY [facility] Last Admin: 07/31/18 08:15 Dose: 20 mg Hydromorphone HCl (Dilaudid Pf Inj) 0.5 mg IV.PUSH ONCE [facility] Last Admin: 07/29/18 11:41 Dose: 0.5 mg Hydromorphone HCl (Dilaudid Pf Inj) 0.5 mg IV.PUSH Q6HR PRN PRN Reason: BREAKTHROUGH PAIN Last Admin: 07/31/18 08:47 Dose: 0.5 mg Sodium Chloride (1/2 Normal Saline Inj) 1,000 mls @ 100 mls/hr IV.CONT .Q10H [facility] Last Admin: 07/31/18 06:30 Dose: 100 mls/hr Metoprolol Tartrate (Lopressor) 25 mg PO BID [facility] Last Admin: 07/31/18 08:15 Dose: 25 mg Ondansetron HCl (Zofran Inj) 4 mg IV.PUSH Q6HR PRN PRN Reason: NAUSEA/VOMITING Last Admin: 07/31/18 10:03 Dose: 4 mg Pantoprazole Sodium (Protonix) 40 mg PO BID [facility] Last Admin: 07/31/18 08:15 Dose: 40 mg Sodium Chloride (Ns Flush) 2 ml IV.FLUSH PRN PRN PRN Reason: FLUSH AFTER USING IV ACCESS Last Admin: 07/31/18 10:04 Dose: 2 ml Sterile Water (Free Water) 200 ml G-TUBE Q6HR [facility] Last Admin: 07/31/18 11:13 Dose: 200 ml Sucralfate (Carafate) 1 gm PO TID [facility] Last Admin: 07/31/18 08:15 Dose: 1 gm Ursodiol (Actigall) 300 mg PO BID [facility] Last Admin: 07/31/18 08:15 Dose: 300 mg Exam Vital signs: Vital Signs 07/30/18 16:00 07/30/18 16:05 07/30/18 20:00 Temperature 98.4 F 101 F H Pulse Rate 104 H 96 H 116 H Respiratory Rate 18 17 Blood Pressure 160/72 H 134/67 Pulse Oximetry 100 96 07/30/18 21:25 07/31/18 00:00 07/31/18 00:39 Temperature 98.2 F Pulse Rate 114 H 77 85 Respiratory Rate 17 Blood Pressure 106/66 Pulse Oximetry 94 L 07/31/18 04:27 07/31/18 08:00 07/31/18 09:00 Temperature 98.3 F 100.1 F H Pulse Rate 86 103 H 105 H Respiratory Rate 17 18 Blood Pressure 129/71 127/58 L Pulse Oximetry 97 100 07/31/18 09:15 07/31/18 10:50 07/31/18 12:00 Temperature 99.0 F Pulse Rate 82 Respiratory Rate 18 18 17 Blood Pressure 120/58 L Pulse Oximetry 99 Intake & Output 07/30/18 07/31/18 07/31/18 18:59 06:59 18:59 Intake Total 1400 / 1400 1400 / 1400 200 / 200 Output Total 425 / 425 280 / 280 300 / 300 Balance 975 / 975 1120 / 1120 -100 / -100 Weight 63 kg Intake: IV 1000 / 1000 1000 / 1000 200 / 200 1/2 Normal Saline Inj 1,000 ML 1000 / 1000 1000 / 1000 @ 100 mls/hr IV.CONT .Q10H [facility] Rx#:[id number] Magnesium Sulfate 1 gm/D5W 100 200 / 200 ml Premix 100 ML @ 100 mls/hr IV.SIG Q1H [facility] Rx#:[id number] Oral 0 / 0 Tube Irrigant 400 / 400 Water Bolus Amount 400 / 400 Output: Urine 425 / 425 280 / 280 300 / 300 Other: # Voids 1 1 Date of Last Bowel Movement 07/30/18 07/30/18 07/29/18 # Bowel Movements 0 Results - Labs CBC & Chem 7: 07/31/18 04:17 07/31/18 04:17 Labs: Laboratory Results - last 24 hr 07/31/18 07/31/18 04:17 04:17 WBC 24.6 H RBC 2.83 L Hgb 8.1 L Hct 25.0 L MCV 88.4 MCH 28.8 MCHC 32.6 RDW 17.3 H Plt Count 364 MPV 8.2 Neut % (Auto) 89.9 H Lymph % (Auto) 4.6 L [place] % (Auto) 4.3 Eos % (Auto) 0.7 Baso % (Auto) 0.5 Neut # (Auto) 22.1 H Lymph # (Auto) 1.1 [place] # (Auto) 1.0 H Eos # (Auto) 0.2 Baso # (Auto) 0.1 WBC Differential . Differential Comment Auto diff final Sodium 134 L Potassium 3.4 L Chloride 98 Carbon Dioxide 19.1 L Anion Gap 17 H BUN 30 H Creatinine 2.38 H Estimated GFR 24 L Random Glucose 55 L Calcium 7.6 L Magnesium 1.2 L Lipase 215 Caprini VTE Risk Assessment Caprini Risk Assessment Model: Point Value = 1 Point Value = 2 Point Value = 3 Point Value = 5 Age 41-60 Minor surgery BMI > 25 kg/m2 Swollen legs Varicose veins or History of unexplained or recurrent spontaneous Oral contraceptives or hormone replacement Sepsis (< 1 month) Serious lung disease, including pneumonia (< 1 month) Abnormal pulmonary function Acute myocardial infarction Congestive heart failure (< 1 month) History of inflammatory bowel disease Medical patient at bed rest Age 61-74 Arthroscopic surgery Major open surgery (> 45 min) Laparoscopic surgery (> 45 min) Malignancy Confined to bed (> 72 hours) Immobilizing plaster cast Central venous access Age >= 75 History of VTE Family history of VTE Factor V Leiden Prothrombin [id number] Lupus anticoagulant Anticardiolipin antibodies Elevated serum homocysteine Heparin-induced thrombocytopenia Other congenital or acquired thrombophilia Stroke (< 1 month) Elective arthroplasty Hip, pelvis, or leg fracture Acute spinal cord injury (< 1 month) Prophylaxis Regimen: Total Risk Factor Score Risk Level Prophylaxis Regimen 0-1 Low Early ambulation 2 Moderate Order ONE of the following: *Sequential Compression Device (SCD) *Heparin 5000 units SQ BID 3-4 Higher Order ONE of the following medications: *Heparin 5000 units SQ TID *Enoxaparin/Lovenox 40 mg SQ daily (WT < 150 kg, CrCl > 30 mL/min) *Enoxaparin/Lovenox 30 mg SQ daily (WT < 150 kg, CrCl > 10-29 mL/min) *Enoxaparin/Lovenox 30 mg SQ BID (WT < 150 kg, CrCl > 30 mL/min) AND/OR *Sequential Compression Device (SCD) 5 or more Highest Order ONE of the following medications: *Heparin 5000 units SQ TID (Preferred with Epidurals) *Enoxaparin/Lovenox 40 mg SQ daily (WT < 150 kg, CrCl > 30 mL/min) *Enoxaparin/Lovenox 30 mg SQ daily (WT < 150 kg, CrCl > 10-29 mL/min) *Enoxaparin/Lovenox 30 mg SQ BID (WT < 150 kg, CrCl > 30 mL/min) AND *Sequential Compression Device (SCD) Assessment and Plan - Assessment (1) Idiopathic pancreatitis Code(s): K85.00 - Idiopathic acute pancreatitis without necrosis or infection Status: Acute - Attending Attestation Patient examined. Assessment and plan formulated with Olga PETERSON I agree with the above. <Alexander Eddy - Last Filed: 07/31/18 12:42> (1) Idiopathic pancreatitis Qualifiers:
[2018-07-28] MEDS: Metoprolol Tartrate 25 MG Tablet PO SCH ×2 (09:57→20:11)
[2018-07-28] MEDS: Sucralfate 1 GM Tablet PO SCH ×3 (09:57→17:32)
[2018-07-28] MEDS: Lipase/Protease/Amylase 12/38/60 DR Capsule PO SCH ×3 (09:57→17:31)
[2018-07-28] MEDS: amLODIPine 5 MG Tablet PO SCH (09:57)
--- NOTE | 2018-07-28 11:56 | P.CONGI ---
History of Present Illness Consult date: 07/28/18 Consult reason: Pancreatitis Chief complaint: Recurrent Idiopathic Pancreatitis History of Present Illness: This is a 82 yo F with medical history significant for recurrent idiopathic pancreatitis and gastroparesis with GJ tube in which she receives overnight continuous feeding through the J tube. Pt is well known to our service and has had multiple biliary stents placed and exchanged. Last ERCP done on June 30 --> Plastic stent was removed, metallic stent seemed to be migrated inside the duct, cholangiogram revealed the duct to be full of debris and stones, S/P sweeping with balloon multiple stones and significant amount of sludge and thick material removed, duct was irrigated, and a new 10 maldivian 9cm stent was placed inside the already placed metallic stent. Pt examined in the hospital until two days ago when she was discharged back home where she lives with her daughter. She presented back to the ER early the next morning with complaints of RUQ abdominal pain. Denies any nausea or vomiting. States she has been tolerating feeding through the J tube. Lipase is elevated and imaging is consistent with acute pancreatitis. <Zahira Mora - Last Filed: 07/28/18 11:44> Review of Systems Gastrointestinal: Reports abdominal pain, Denies change in stools, Denies nausea , Denies vomiting <Zahira Mora - Last Filed: 07/28/18 11:44> PMFSH - History History Provided By: Patient - Medical History Medical History: Medical History (Last Reviewed 07/28/18 @ 01:42 by Tika Ward DO) Anxiety CKD (chronic kidney disease) stage 3, GFR 30-59 ml/min Encounter for gastrojejunal (GJ) tube placement GERD (gastroesophageal reflux disease) Hx of blood transfusion reaction Hypertension Idiopathic pancreatitis Pancreatitis - Surgical History Surgical History: Surgical History (Last Reviewed 07/28/18 @ 00:55 by Fabiano Oates RN) History of total left knee replacement (TKR) Hx of cholecystectomy S/P ERCP - Family History Family History: Family History (Last Reviewed 07/28/18 @ 01:42 by Tika Ward DO) Other Family history non-contributory - Tobacco History Second Hand Smoke Exposure: No Smoking Status: Never smoker - Alcohol History How Often Do You Have a Drink Containing Alcohol: Never - Substance Use History Substance History: No History of Abuse - Travel History Recent Travel in the [facility] Within the Last 8 Weeks: No Recent Travel Out of the Country Within the Last 8 Weeks: No - Immunization History Tetanus Immunization: Unable to Assess Hx Influenza Vaccine This Season: Unable to Assess <Zahira Mora - Last Filed: 07/28/18 11:44> - Medical History Medical History: Medical History (Last Reviewed 07/28/18 @ 01:42 by Tika Ward DO) Anxiety CKD (chronic kidney disease) stage 3, GFR 30-59 ml/min Encounter for gastrojejunal (GJ) tube placement GERD (gastroesophageal reflux disease) Hx of blood transfusion reaction Hypertension Idiopathic pancreatitis Pancreatitis - Surgical History Surgical History: Surgical History (Last Reviewed 07/28/18 @ 00:55 by Fabiano Oates RN) History of total left knee replacement (TKR) Hx of cholecystectomy S/P ERCP - Family History Family History: Family History (Last Reviewed 07/28/18 @ 01:42 by Tika Ward DO) Other Family history non-contributory <Jelly Lino - Last Filed: 07/28/18 15:37> Medications and Allergies Active Medications: Active Medications Hydrocodone Bitart/Acetaminophen (Jessup 5/325) 1 tab PO Q4H PRN PRN Reason: Pain 2-10 Last Admin: 07/28/18 09:01 Dose: 1 tab Al Hydroxide/Mg Hydroxide (Milk Of Magnveena Liq) 30 ml PO QID PRN PRN Reason: CONSTIPATION Amlodipine Besylate (Norvasc) 5 mg PO DAILY [facility] Last Admin: 07/28/18 09:57 Dose: 5 mg Lipase/Protease/Amylase (Mando Kapoor ) 1 cap PO TIDPC [facility] Last Admin: 07/28/18 09:57 Dose: 1 cap Duloxetine HCl (Cymbalta) 20 mg PO DAILY [facility] Last Admin: 07/28/18 09:57 Dose: 20 mg Hydromorphone HCl (Dilaudid Pf Inj) 0.5 mg IV.PUSH ONCE [facility] Last Admin: 07/28/18 02:50 Dose: 0.5 mg Hydromorphone HCl (Dilaudid Pf Inj) 0.5 mg IV.PUSH Q6HR PRN PRN Reason: BREAKTHROUGH PAIN Last Admin: 07/28/18 04:57 Dose: 0.5 mg Sodium Chloride (1/2 Normal Saline Inj) 1,000 mls @ 70 mls/hr IV.CONT .[id number] [facility] Last Admin: 07/28/18 05:56 Dose: 70 mls/hr Metoprolol Tartrate (Lopressor) 25 mg PO BID [facility] Last Admin: 07/28/18 09:57 Dose: 25 mg Ondansetron HCl (Zofran Inj) 4 mg IV.PUSH Q6HR PRN PRN Reason: NAUSEA/VOMITING Last Admin: 07/28/18 04:55 Dose: 4 mg Pantoprazole Sodium (Protonix) 40 mg PO BID [facility] Last Admin: 07/28/18 09:57 Dose: 40 mg Sodium Chloride (Ns Flush) 2 ml IV.FLUSH PRN PRN PRN Reason: FLUSH AFTER USING IV ACCESS Last Admin: 07/28/18 04:58 Dose: 2 ml Sterile Water (Free Water) 200 ml G-TUBE Q6HR [facility] Sucralfate (Carafate) 1 gm PO TID [facility] Last Admin: 07/28/18 09:57 Dose: 1 gm Ursodiol (Actigall) 300 mg PO BID [facility] Last Admin: 07/28/18 09:57 Dose: 300 mg <Zahira Mora - Last Filed: 07/28/18 11:44> Active Medications: Active Medications Hydrocodone Bitart/Acetaminophen (Jessup 5/325) 1 tab PO Q4H PRN PRN Reason: Pain 2-10 Last Admin: 07/28/18 12:53 Dose: 1 tab Al Hydroxide/Mg Hydroxide (Milk Of Magnesia Liq) 30 ml PO QID PRN PRN Reason: CONSTIPATION Amlodipine Besylate (Norvasc) 5 mg PO DAILY [facility] Last Admin: 07/28/18 09:57 Dose: 5 mg Lipase/Protease/Amylase (Mando Kapoor ) 1 cap PO TIDPC [facility] Last Admin: 07/28/18 12:53 Dose: 1 cap Duloxetine HCl (Cymbalta) 20 mg PO DAILY [facility] Last Admin: 07/28/18 09:57 Dose: 20 mg Hydromorphone HCl (Dilaudid Pf Inj) 0.5 mg IV.PUSH ONCE [facility] Last Admin: 07/28/18 02:50 Dose: 0.5 mg Hydromorphone HCl (Dilaudid Pf Inj) 0.5 mg IV.PUSH Q6HR PRN PRN Reason: BREAKTHROUGH PAIN Last Admin: 07/28/18 04:57 Dose: 0.5 mg Sodium Chloride (1/2 Normal Saline Inj) 1,000 mls @ 70 mls/hr IV.CONT .[id number] [facility] Last Admin: 07/28/18 05:56 Dose: 70 mls/hr Metoprolol Tartrate (Lopressor) 25 mg PO BID [facility] Last Admin: 07/28/18 09:57 Dose: 25 mg Ondansetron HCl (Zofran Inj) 4 mg IV.PUSH Q6HR PRN PRN Reason: NAUSEA/VOMITING Last Admin: 07/28/18 04:55 Dose: 4 mg Pantoprazole Sodium (Protonix) 40 mg PO BID [facility] Last Admin: 07/28/18 09:57 Dose: 40 mg Sodium Chloride (Ns Flush) 2 ml IV.FLUSH PRN PRN PRN Reason: FLUSH AFTER USING IV ACCESS Last Admin: 07/28/18 04:58 Dose: 2 ml Sterile Water (Free Water) 200 ml G-TUBE Q6HR [facility] Last Admin: 07/28/18 12:54 Dose: 200 ml Sucralfate (Carafate) 1 gm PO TID [facility] Last Admin: 07/28/18 12:53 Dose: 1 gm Ursodiol (Actigall) 300 mg PO BID [facility] Last Admin: 07/28/18 09:57 Dose: 300 mg <Jelly Lino A - Last Filed: 07/28/18 15:37> Allergies Allergy/AdvReac Type Severity Reaction Status Date / Time No Known Allergies Allergy Unverified 05/16/18 07:25 Home Medications Medication Instructions Recorded Confirmed Type [id number] [Creon] 1 tab PO TIDPC 05/16/18 07/17/18 History magnesium hydroxide [Presley Milk 311 mg PO QID PRN 05/16/18 07/17/18 History of Magnesia] metoprolol tartrate 25 mg PO BID 05/16/18 07/17/18 History pantoprazole 40 mg PO BID 05/16/18 07/17/18 History sucralfate 1 g PO TID 05/16/18 07/17/18 History Exam Vital signs: Vital Signs 07/28/18 00:54 07/28/18 01:06 07/28/18 01:18 Temperature 98.9 F 98.3 F Pulse Rate 95 H 87 84 Respiratory Rate 20 20 Blood Pressure 119/73 131/65 Pulse Oximetry 99 99 07/28/18 04:55 07/28/18 05:00 07/28/18 07:59 Temperature 98.3 F Pulse Rate 95 H 86 93 H Respiratory Rate 20 18 18 Blood Pressure 150/74 H 138/66 150/70 H Pulse Oximetry 99 99 98 07/28/18 08:00 Temperature 98.6 F Pulse Rate 104 H Respiratory Rate Blood Pressure 167/81 H Pulse Oximetry 97 Intake & Output 07/27/18 07/28/18 07/28/18 18:59 06:59 18:59 Weight 61.4 kg Other: Date of Last Bowel Movement 07/27/18 Weight On Admission 61.4 kg - Constitutional no acute distress - Routine HEENT Exam Head: Present: normocephalic, atraumatic - Routine Respiratory Exam Absent: accessory muscle use - Routine Abdominal Exam Present: soft, normoactive bowel sounds, tenderness, distended Comments: RUQ tenderness, GJ tube clamped - Routine Neurological Exam Present: alert, oriented X3 <Zahira Mora - Last Filed: 07/28/18 11:44> Vital signs: Vital Signs 07/28/18 00:54 07/28/18 01:06 07/28/18 01:18 Temperature 98.9 F 98.3 F Pulse Rate 95 H 87 84 Respiratory Rate 20 20 Blood Pressure 119/73 131/65 Pulse Oximetry 99 99 07/28/18 04:55 07/28/18 05:00 07/28/18 07:59 Temperature 98.3 F Pulse Rate 95 H 86 93 H Respiratory Rate 20 18 18 Blood Pressure 150/74 H 138/66 150/70 H Pulse Oximetry 99 99 98 07/28/18 08:00 07/28/18 12:00 Temperature 98.6 F 98.4 F Pulse Rate 104 H 88 Respiratory Rate 16 Blood Pressure 167/81 H 141/75 H Pulse Oximetry 97 96 Intake & Output 07/27/18 07/28/18 07/28/18 18:59 06:59 18:59 Weight 61.4 kg Other: Date of Last Bowel Movement 07/27/18 07/27/18 Weight On Admission 61.4 kg <Jelly Lino - Last Filed: 07/28/18 15:37> Results - Labs CBC & Chem 7: 07/28/18 01:25 07/28/18 01:25 Labs: Laboratory Results - last 24 hr 07/28/18 07/28/18 07/28/18 01:25 01:25 01:30 WBC 21.6 H RBC 3.42 L Hgb 9.9 L Hct 30.2 L MCV 88.3 MCH 29.0 MCHC 32.8 RDW 18.3 H Plt Count 481 H D MPV 8.2 Prelim Diff (Auto) Slide review pending Neut % (Auto) 91.9 H Lymph % (Auto) 4.1 L [place] % (Auto) 2.2 Eos % (Auto) 1.4 Baso % (Auto) 0.4 Neut # (Auto) 19.9 H Lymph # (Auto) 0.9 L [place] # (Auto) 0.5 Eos # (Auto) 0.3 Baso # (Auto) 0.1 WBC Differential Manual diff final Seg Neuts % (Manual) 86 H Band Neuts % (Manual) 3 Lymphocytes % (Manual) 6 L Monocytes % (Manual) 3 Basophils % (Manual) 1 Metamyelocytes % (Man) 1 Abs Neuts (Manual) 19.4 H Differential Comment . Toxic Vacuolation Present H Platelet Estimate High H Platelet Morphology Normal Keratocytes Occ H Sodium 144 Potassium 3.7 Chloride 106 Carbon Dioxide 26.6 Anion Gap 11 BUN 44 H Creatinine 2.60 H Random Glucose 95 Lactic Acid 0.9 Calcium 8.2 L Total Bilirubin 0.3 AST 8 L ALT 14 Alkaline Phosphatase 70 Total Protein 7.1 Albumin 2.7 L Lipase 2673 H - Imaging Impressions Abdomen/Pelvis CT 07/28/18 01:18 CONCLUSION: 1. Postoperative changes of biliary stent with biliary drainage catheter passing through the stent. Gastrojejunostomy tube again noted. 2. Mild stranding of fat around the pancreas could indicate a mild pancreatitis. 3. 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 <Zahira Mora - Last Filed: 07/28/18 11:44> - Labs CBC & Chem 7: 07/28/18 01:25 07/28/18 01:25 Labs: Laboratory Results - last 24 hr 07/28/18 07/28/1818 01:25 01:25 01:30 WBC 21.6 H RBC 3.42 L Hgb 9.9 L Hct 30.2 L MCV 88.3 MCH 29.0 MCHC 32.8 RDW 18.3 H Plt Count 481 H D MPV 8.2 Prelim Diff (Auto) Slide review pending Neut % (Auto) 91.9 H Lymph % (Auto) 4.1 L [place] % (Auto) 2.2 Eos % (Auto) 1.4 Baso % (Auto) 0.4 Neut # (Auto) 19.9 H Lymph # (Auto) 0.9 L [place] # (Auto) 0.5 Eos # (Auto) 0.3 Baso # (Auto) 0.1 WBC Differential Manual diff final Seg Neuts % (Manual) 86 H Band Neuts % (Manual) 3 Lymphocytes % (Manual) 6 L Monocytes % (Manual) 3 Basophils % (Manual) 1 Metamyelocytes % (Man) 1 Abs Neuts (Manual) 19.4 H Differential Comment . Toxic Vacuolation Present H Platelet Estimate High H Platelet Morphology Normal Keratocytes Occ H Sodium 144 Potassium 3.7 Chloride 106 Carbon Dioxide 26.6 Anion Gap 11 BUN 44 H Creatinine 2.60 H Random Glucose 95 Lactic Acid 0.9 Calcium 8.2 L Total Bilirubin 0.3 AST 8 L ALT 14 Alkaline Phosphatase 70 Total Protein 7.1 Albumin 2.7 L Lipase 2673 H - Imaging Impressions Abdomen/Pelvis CT 07/28/18 01:18 CONCLUSION: 1. Postoperative changes of biliary stent with biliary drainage catheter passing through the stent. Gastrojejunostomy tube again noted. 2. Mild stranding of fat around the pancreas could indicate a mild pancreatitis. 3. 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 <Jelly Lino - Last Filed: 07/28/18 15:37> Assessment and Plan - Plan Assessment: - Idiopathic pancreatitis- well known to our service- follows Dr. Ortega outpatient Pt has had multiple stents placed- last ERCP done June 30 --> Plastic stent was removed, metallic stent seemed to be migrated inside the duct, cholangiogram revealed the duct to be full of debris and stones, S/P sweeping with balloon multiple stones and significant amount of sludge and thick material removed, duct was irrigated, and a new 10 maldivian 9cm stent was placed inside the already placed metallic stent. Pt was discharged from the hospital two days ago, presented back to the ER early the next morning with complaints of RUQ abdominal pain. Denies any nausea or vomiting. States she has been tolerating feeding through the J tube. Lipase is elevated and imaging is consistent with acute pancreatitis. Of note, pts previous labs reviewed, her LFTs and bili never seem to elevate, but she has had elevation in Alk phos and lipase - Gastroparesis- Pt with GJ tube- continuous TF through J tube at night, G tube stays clamped. pt reports tolerating her tube feeds Plan: Continue with current supportive care NPO IV fluids Pain control Antiemetics PRN Monitor labs ERCP with stent exchange Wednesday Further recommendations to follow Pt has been seen and examined by myself and Dr. Lino and this note is written on his behalf <Zahira Mora - Last Filed: 07/28/18 11:44> - Attending Attestation Seen and examined, plan as above. Active acute pancreatitis on top of chronic. Will need complete bowel rest, pain control and stent exchange in few days. Thank you for the consult. <Jelly Lino - Last Filed: 07/28/18 15:37>
--- NOTE | 2018-07-28 12:48 | P.DIET ---
Nutritional Evaluation Type of nutrition evaluation: initial Nutrition screening: Weight Loss > 10 lbs Objective - Diagnosis Recurrent Idiopathic Pancreatitis - Objective % IBW: 104 (YBK=[id number]#) Body Weight Used for Calculations: Actual (61.4kg) Energy Needs - Lower Range (kCal/kg): 25 Energy Needs - Upper Range (kCal/kg): 30 Lower Limit kCal/kg (kCals): 1,535 Upper Limit kCal/kg (kCals): 1,842 Lower Limit Protein Factor (Grams per Kg): 0.6 Upper Limit Protein Factor (Grams per Kg): 1.0 Lower Protein Needs (Protein): 37 Upper Protein Needs (Protein): 61 Dietitian Reviewed in Medical Record: Current diet, Curent medications, Intake & Output, Labs, Medical history Diet Order: NPO Objective Comments: Labs: BUN 44, 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 She's at 104% of her IBW. Pt has G/J tube and has been receiving TFs via J. Currently NPO. When TFs resume, recommend Suplena @ 40mls/hr to provide 1728kcals, 43g PRO, and 708mls fluid. Dietitian following. Recommendations: 1. Suplena @ 40mls/hr when TFs resume. Dietitian to Monitor: Lab values, Renal labs, Intake & Output, Weight change, Diet advancement, Medical course
--- NOTE | 2018-07-28 18:49 | ECG ---
Date Performed: 07/28/2018 Time Performed: 01:16:34 PTAGE: 82 years EKG: Sinus rhythm NONSPECIFIC T-WAVE ABNORMALITY BORDERLINE ECG PREVIOUS TRACING : 07/17/2018 20.31 Since the previous tracing, no significant change noted DOCTOR: Luis Enrique Cerrato Interpretating Date/Time 07/28/2018 18:47:12
[2018-07-29] MEDS: HYDROmorphone PF Inj 2 MG/ML Vial IV.PUSH PRN ×3 (05:40→23:54)
[2018-07-29 07:23] LABS: Baso # (Auto) 0.1 th/mm3 (0.0-0.2); Baso % (Auto) 0.4 % (0.0-2.0); Eos # (Auto) 0.2 th/mm3 (0.0-0.4); Hematocrit 27.5 % (35.0-46.0); Hemoglobin 8.9 gm/dL (11.6-15.3); Lymph # (Auto) 1.3 th/mm3 (1.0-4.8); Lymph % (Auto) 5.2 % (9.0-44.0); Mean Corpuscular HGB Conc 32.4 % (32.0-36.0); Mean Corpuscular Hemoglobin 28.6 pg (27.0-34.0); Mean Corpuscular Volume 88.3 fL (80.0-100.0); Mean Platelet Volume 8.6 fL (7.0-11.0); Mono # (Auto) 0.8 th/mm3 (0.0-0.9); Mono % (Auto) 3.2 % (0.0-8.0); Neut # (Auto) 22.5 th/mm3 (1.8-7.7); Neut % (Auto) 90.2 % (16.0-70.0); Platelet Count 360 th/mm3 (150-450); Red Blood Count 3.11 mil/mm3 (4.00-5.30); Red Cell Distribution Width 18.1 % (11.6-17.2); White Blood Count 24.9 th/mm3 (4.0-11.0)
[2018-07-29 07:43] LABS: Alanine Aminotransferase 12 U/L (10-53); Albumin 2.1 g/dL (3.4-5.0); Alkaline Phosphatase 73 U/L (45-117); Anion Gap 13 meq/L (5-15); Aspartate Aminotransferase 12 U/L (15-37); Blood Urea Nitrogen 38 mg/dL (7-18); Calcium 7.9 mg/dL (8.5-10.1); Carbon Dioxide 23.4 meq/L (21.0-32.0); Chloride 100 meq/L (98-107); Glomerular Filtration Rate 25 mL/min (>89); Glucose,Random 54 mg/dL (74-106); Lipase 2471 U/L (73-393); Potassium 3.8 meq/L (3.5-5.1); Sodium 136 meq/L (136-145); Total Protein 6.2 g/dL (6.4-8.2)
[2018-07-29] MEDS: amLODIPine 5 MG Tablet PO SCH (08:16)
[2018-07-29] MEDS: Sucralfate 1 GM Tablet PO SCH ×3 (08:16→17:40)
[2018-07-29] MEDS: Metoprolol Tartrate 25 MG Tablet PO SCH ×2 (08:17→21:03)
[2018-07-29] MEDS: Lipase/Protease/Amylase 12/38/60 DR Capsule PO SCH ×3 (09:17→17:40)
[2018-07-29] MEDS: Sodium Chloride 0.45 % Inj 1,000 ML IV.CONT SCH ×2 (10:41→23:53)
[2018-07-29] MEDS: HYDROmorphone PF Inj 2 MG/ML Vial IV.PUSH SCH (11:41)
--- NOTE | 2018-07-29 13:13 | P.PNGI ---
Subjective Interval history: Patient is resting in the bed eyes open but states that she still having some upper abdominal and right upper quadrant abdominal pain Appears weakened, but no obvious bleeding <Jordana Sebastian - Last Filed: 07/29/18 13:09> Physical Exam Vital signs: Vital Signs 07/28/18 16:00 07/28/18 18:11 07/28/18 20:00 Temperature 98.6 F 98.7 F Pulse Rate 94 H 107 H Respiratory Rate 16 17 20 Blood Pressure 147/72 H 118/69 Pulse Oximetry 98 97 07/29/18 00:00 07/29/18 04:00 07/29/18 08:00 Temperature 98.6 F 99.3 F 98.7 F Pulse Rate 88 87 105 H Respiratory Rate 18 18 14 Blood Pressure 160/79 H 133/67 150/75 H Pulse Oximetry 99 98 99 07/29/18 08:19 07/29/18 09:00 07/29/18 12:00 Temperature 98.4 F 98.6 F Pulse Rate 112 H 122 H 88 Respiratory Rate 14 14 Blood Pressure 142/69 H 136/67 Pulse Oximetry 99 99 Intake & Output 07/28/18 07/29/18 07/29/18 18:59 06:59 18:59 Intake Total 360 / 360 1400 / 1400 1200 / 1200 Output Total 1000 / 1000 Balance 360 / 360 400 / 400 1200 / 1200 Weight 61.8 kg Intake: IV 1000 / 1000 1000 / 1000 1/2 Normal Saline Inj 1,000 ML 1000 / 1000 1000 / 1000 @ 70 mls/hr IV.CONT .[id number] [facility] Rx#:[id number] Oral 360 / 360 Tube Irrigant 200 / 200 Water Bolus Amount 400 / 400 Output: Urine 1000 / 1000 Other: # Voids 4 Date of Last Bowel Movement 07/27/18 07/27/18 # Bowel Movements 0 - Constitutional mild distress, chronically ill appearing - Routine HEENT Exam Head: Present: normocephalic ENT: Present: mucous membranes dry - Routine Respiratory Exam Present: accessory muscle use - Detailed Respiratory Exam Even, unlabored Present: prolonged expiratory phase - Routine Cardiovascular Exam Present: S1, S2 - Routine Abdominal Exam Present: soft (Round, abdominal tenderness right upper quadrant and mid upper abdomen), tenderness - Routine Skin Exam Present: intact - Routine Neurological Exam Present: alert (Answering simple questions appropriately) <Jordana Sebastian - Last Filed: 07/29/18 13:09> Vital signs: Vital Signs 07/28/18 20:00 07/29/18 00:00 07/29/18 04:00 Temperature 98.7 F 98.6 F 99.3 F Pulse Rate 107 H 88 87 Respiratory Rate 20 18 18 Blood Pressure 118/69 160/79 H 133/67 Pulse Oximetry 97 99 98 07/29/18 08:00 07/29/18 08:19 07/29/18 09:00 Temperature 98.7 F 98.4 F Pulse Rate 105 H 112 H 122 H Respiratory Rate 14 14 Blood Pressure 150/75 H 142/69 H Pulse Oximetry 99 99 07/29/18 12:00 07/29/18 13:40 07/29/18 16:00 Temperature 98.6 F 98.4 F 99.0 F Pulse Rate 87 85 99 H Respiratory Rate 14 14 18 Blood Pressure 136/67 141/72 H 144/73 H Pulse Oximetry 99 99 98 Intake & Output 07/28/18 07/29/18 07/29/18 18:59 06:59 18:59 Intake Total 360 / 360 1400 / 1400 1200 / 1200 Output Total 1000 / 1000 500 / 500 Balance 360 / 360 400 / 400 700 / 700 Weight 61.8 kg Intake: IV 1000 / 1000 1000 / 1000 1/2 Normal Saline Inj 1,000 ML 1000 / 1000 1000 / 1000 @ 70 mls/hr IV.CONT .[id number] [facility] Rx#:[id number] Oral 360 / 360 Tube Irrigant 200 / 200 Water Bolus Amount 400 / 400 Output: Urine 1000 / 1000 500 / 500 Other: # Voids 4 Date of Last Bowel Movement 07/27/18 07/27/18 # Bowel Movements 0 <Jelly Lino - Last Filed: 07/29/18 18:43> Results - Labs CBC & Chem 7: 07/29/18 05:33 07/29/18 05:33 Laboratory Results - last 24 hr 07/29/18 07/29/18 05:33 05:33 WBC 24.9 H RBC 3.11 L Hgb 8.9 L Hct 27.5 L MCV 88.3 MCH 28.6 MCHC 32.4 RDW 18.1 H Plt Count 360 MPV 8.6 Neut % (Auto) 90.2 H Lymph % (Auto) 5.2 L [place] % (Auto) 3.2 Eos % (Auto) 1.0 Baso % (Auto) 0.4 Neut # (Auto) 22.5 H Lymph # (Auto) 1.3 [place] # (Auto) 0.8 Eos # (Auto) 0.2 Baso # (Auto) 0.1 WBC Differential . Differential Comment Auto diff final Sodium 136 Potassium 3.8 Chloride 100 Carbon Dioxide 23.4 Anion Gap 13 BUN 38 H Creatinine 2.31 H Estimated GFR 25 L Random Glucose 54 L Calcium 7.9 L Total Bilirubin 0.3 AST 12 L ALT 12 Alkaline Phosphatase 73 Total Protein 6.2 L D Albumin 2.1 L D Lipase 2471 H <Jordana Sebastian - Last Filed: 07/29/18 13:09> - Labs CBC & Chem 7: 07/29/18 05:33 07/29/18 05:33 Laboratory Results - last 24 hr 07/29/18 07/29/18 05:33 05:33 WBC 24.9 H RBC 3.11 L Hgb 8.9 L Hct 27.5 L MCV 88.3 MCH 28.6 MCHC 32.4 RDW 18.1 H Plt Count 360 MPV 8.6 Neut % (Auto) 90.2 H Lymph % (Auto) 5.2 L [place] % (Auto) 3.2 Eos % (Auto) 1.0 Baso % (Auto) 0.4 Neut # (Auto) 22.5 H Lymph # (Auto) 1.3 [place] # (Auto) 0.8 Eos # (Auto) 0.2 Baso # (Auto) 0.1 WBC Differential . Differential Comment Auto diff final Sodium 136 Potassium 3.8 Chloride 100 Carbon Dioxide 23.4 Anion Gap 13 BUN 38 H Creatinine 2.31 H Estimated GFR 25 L Random Glucose 54 L Calcium 7.9 L Total Bilirubin 0.3 AST 12 L ALT 12 Alkaline Phosphatase 73 Total Protein 6.2 L D Albumin 2.1 L D Lipase 2471 H <Jelly Lino - Last Filed: 07/29/18 18:43> Assessment and Plan - Plan Assessment: - Idiopathic pancreatitis- well known to our service- follows Dr. Ortega outpatient Pt has had multiple stents placed- last ERCP done June 30 --> Plastic stent was removed, metallic stent seemed to be migrated inside the duct, cholangiogram revealed the duct to be full of debris and stones, S/P sweeping with balloon multiple stones and significant amount of sludge and thick material removed, duct was irrigated, and a new 10 [place] 9cm stent was placed inside the already placed metallic stent. Pt was discharged from the hospital two days ago, presented back to the ER early the next morning with complaints of RUQ abdominal pain. Denies any nausea or vomiting. States she has been tolerating feeding through the J tube. Lipase is elevated and imaging is consistent with acute pancreatitis. Of note, pts previous labs reviewed, her LFTs and bili never seem to elevate, but she has had elevation in Alk phos and lipase - Gastroparesis- Pt with GJ tube- continuous TF through J tube at night, G tube stays clamped. pt reports tolerating her tube feeds 07/29/2018 patient is resting in the bed still having right upper quadrant and abdominal wall pain to light palpation currently on bowel rest as well as pain management. Current labs show hemoglobin 8.9 anemia but no obvious GI bleeding leukocytosis 24.9. Acute on chronic pancreatitis. Note ERCP back in June 2018, will need stent exchange, probable Wednesday Plan: NPO, patient may have sips of water for meds and a few ice chips but otherwise n.p.o. IV fluids Pain management per attending Monitor labs Plan for ERCP with stent exchange Wednesday Consent for ERCP Further recommendations to follow She was seen from Dr. Lino, note was written on his behalf <Jordana Sebastian - Last Filed: 07/29/18 13:09> - Attending Attestation Agree with above, pancreatitis is improving clinically. Will plan ERCP Wednesday with stent exchange. <Jelly Lino - Last Filed: 07/29/18 18:43>
--- NOTE | 2018-07-29 15:30 | P.PNIM ---
Subjective Interval history: Pt has NO new complaints. Physical Exam Vital signs: 07/29/18 13:40 Temperature 98.4 F Pulse Rate 85 Respiratory Rate 14 Blood Pressure 141/72 H Pulse Oximetry 99 Narrative: GENERAL: This is a well-nourished, well-developed patient, in no apparent distress. CARDIOVASCULAR: Regular rate and rhythm without murmurs, gallops, or rubs. RESPIRATORY: Clear to auscultation. Breath sounds equal bilaterally. No wheezes , rales, or rhonchi. GASTROINTESTINAL: Abdomen soft, non-tender, nondistended. Normal active bowel sounds MUSCULOSKELETAL: Extremities without clubbing, cyanosis, or edema. NEURO: Alert & Oriented x4 to person, place, time, situation. Moves all ext x4 Results - Labs CBC & Chem 7: 07/29/18 05:33 07/29/18 05:33 Lipase 2471 (07/29) - Imaging Abdomen/Pelvis CT 07/28/18 01:18 CONCLUSION: 1. Postoperative changes of biliary stent with biliary drainage catheter passing through the stent. Gastrojejunostomy tube again noted. 2. Mild stranding of fat around the pancreas could indicate a mild pancreatitis. 3. 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 Assessment and Plan - Assessment (1) Idiopathic pancreatitis Code(s): K85.00 - Idiopathic acute pancreatitis without necrosis or infection Status: Acute Plan: - Pt has recurrent idiopathic pancreatitis - Pt readmitted with clinical c/o abdominal pain - Pt's lipase is elevated - appreciate input from Gastroenterology - Pt planned for repeat ERCP with biliary stent exchange 08/01/18 - TF on hold - NPO with pills - norco/dilaudid prn - daily PT - out-of-bed only with assistance - DVT prophylaxis - supportive care - consider reconsulting Palliative Medicine. (1) Idiopathic pancreatitis Qualifiers:
[2018-07-30 05:52] LABS: Baso # (Auto) 0.1 th/mm3 (0.0-0.2); Baso % (Auto) 0.5 % (0.0-2.0); Eos # (Auto) 0.2 th/mm3 (0.0-0.4); Eos % (Auto) 0.8 % (0.0-4.0); Hematocrit 26.7 % (35.0-46.0); Hemoglobin 8.4 gm/dL (11.6-15.3); Lymph # (Auto) 0.9 th/mm3 (1.0-4.8); Lymph % (Auto) 4.2 % (9.0-44.0); Mean Corpuscular HGB Conc 31.6 % (32.0-36.0); Mean Corpuscular Volume 88.4 fL (80.0-100.0); Mean Platelet Volume 7.8 fL (7.0-11.0); Mono # (Auto) 0.7 th/mm3 (0.0-0.9); Mono % (Auto) 3.1 % (0.0-8.0); Neut # (Auto) 20.6 th/mm3 (1.8-7.7); Neut % (Auto) 91.4 % (16.0-70.0); Platelet Count 354 th/mm3 (150-450); Red Blood Count 3.02 mil/mm3 (4.00-5.30); Red Cell Distribution Width 17.9 % (11.6-17.2); White Blood Count 22.6 th/mm3 (4.0-11.0)
[2018-07-30 06:21] LABS: Anion Gap 16 meq/L (5-15); Aspartate Aminotransferase 8 U/L (15-37); Blood Urea Nitrogen 36 mg/dL (7-18); Calcium 7.9 mg/dL (8.5-10.1); Carbon Dioxide 21.1 meq/L (21.0-32.0); Chloride 99 meq/L (98-107); Glomerular Filtration Rate 24 mL/min (>89); Glucose,Random 61 mg/dL (74-106); Lipase 758 U/L (73-393); Potassium 3.7 meq/L (3.5-5.1); Sodium 136 meq/L (136-145)
[2018-07-30 06:24] LABS: Alanine Aminotransferase 10 U/L (10-53); Alkaline Phosphatase 76 U/L (45-117); Total Protein 6.3 g/dL (6.4-8.2)
[2018-07-30] MEDS: Sucralfate 1 GM Tablet PO SCH ×3 (08:03→17:16)
[2018-07-30] MEDS: amLODIPine 5 MG Tablet PO SCH (08:04)
[2018-07-30] MEDS: Metoprolol Tartrate 25 MG Tablet PO SCH ×2 (08:04→20:00)
[2018-07-30] MEDS: HYDROmorphone PF Inj 2 MG/ML Vial IV.PUSH PRN ×3 (08:04→19:54)
[2018-07-30] MEDS: Lipase/Protease/Amylase 12/38/60 DR Capsule PO SCH ×3 (10:37→17:44)
--- NOTE | 2018-07-30 13:33 | P.PNIM ---
Subjective Interval history: No new complaints. Physical Exam Vital signs: 07/30/18 08:00 07/30/18 08:59 07/30/18 12:00 Temperature 98.7 F 98.9 F Pulse Rate 97 H 106 H 95 H Respiratory Rate 18 17 Blood Pressure 134/68 137/96 H Pulse Oximetry 100 98 Narrative: GENERAL: This is a well-nourished, well-developed patient, in no apparent distress. CARDIOVASCULAR: Regular rate and rhythm without murmurs, gallops, or rubs. RESPIRATORY: Clear to auscultation. Breath sounds equal bilaterally. No wheezes , rales, or rhonchi. GASTROINTESTINAL: Abdomen soft, non-tender, nondistended. Normal active bowel sounds MUSCULOSKELETAL: Extremities without clubbing, cyanosis, or edema. NEURO: Alert & Oriented x4 to person, place, time, situation. Moves all ext x4 Results - Labs CBC & Chem 7: 07/31/18 04:17 07/31/18 04:17 - Imaging Abdomen/Pelvis CT 07/28/18 01:18 CONCLUSION: 1. Postoperative changes of biliary stent with biliary drainage catheter passing through the stent. Gastrojejunostomy tube again noted. 2. Mild stranding of fat around the pancreas could indicate a mild pancreatitis. 3. 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 Assessment and Plan - Assessment (1) Idiopathic pancreatitis Code(s): K85.00 - Idiopathic acute pancreatitis without necrosis or infection Status: Acute Plan: Idiopathic pancreatitis Ms. Larsen is an 82 y/o AAF with recurrent idiopathic pancreatitis. She has been hospitalized numerous times for issues with pain control related to recurrent pancreatitis. Her last admission was from 07/13/18 to 07/26/18 due to WAYNE, idiopathic pancreatitis and had her GJ tube exchanged 07/25/18. Patient again presented to the ER last night due to worsening abd pain associated with nausea but no vomiting. Patient reprots that she always had mild epigastric pain, but yesterday evening it again became more severe and is associated with nausea but not vomiting. Denies fever or chills, chest pain, cough, difficulty flushing J tube, or diarrhea. - On admission WBC 21.6, BUN 44, creatinine 2.60 and lipase 2673. - CT abd/pelvis was done and revealed: 1. Postoperative changes of biliary stent with biliary drainage catheter passing through the stent. Gastrojejunostomy tube again noted. 2. Mild stranding of fat around the pancreas could indicate a mild pancreatitis. 3. 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 - WBC 21.6 (07/28), 24.9 (07/29), 22.6 (07/30) - lipase 2673 (07/28), 2471 (07/29), 758 (07/30) - NPO - IVF for hydration - PO and IV pain medication as needed - Appreciate input from GI. Pt to have repeat ERCP with stent exchange on Wednesday , 08/01/18 - hold TF at this time chronic kidney failure - Pt with baseline stage 3 CKD, pt follows with Dr. Melara - avoid nephrotoxic agents HTN (hypertension) - Cont. home meds - Monitor GERD (gastroesophageal reflux disease) - PPI (1) Idiopathic pancreatitis Qualifiers:
[2018-07-30] MEDS: Sodium Chloride 0.45 % Inj 1,000 ML IV.CONT SCH (14:03)
--- NOTE | 2018-07-30 16:25 | P.PNGI ---
Subjective Interval history: Pt is resting in bed, still with abd pain. not voicing any other concerns Physical Exam Vital signs: Vital Signs 07/29/18 20:00 07/30/18 00:00 07/30/18 00:40 Temperature 99.1 F 98.3 F Pulse Rate 103 H 88 Respiratory Rate 18 18 20 Blood Pressure 150/72 H 143/67 H Pulse Oximetry 98 99 07/30/18 04:00 07/30/18 08:00 07/30/18 08:59 Temperature 98.6 F 98.7 F Pulse Rate 89 97 H 106 H Respiratory Rate 20 18 Blood Pressure 132/68 134/68 Pulse Oximetry 99 100 07/30/18 12:00 07/30/18 16:05 Temperature 98.9 F Pulse Rate 93 H 96 H Respiratory Rate 17 Blood Pressure 137/96 H Pulse Oximetry 98 Intake & Output 07/29/18 07/30/18 07/30/18 18:59 06:59 18:59 Intake Total 1200 / 1200 1200 / 1200 1000 / 1000 Output Total 500 / 500 200 / 200 Balance 700 / 700 1200 / 1200 800 / 800 Weight 62.8 kg Intake: IV 1000 / 1000 1000 / 1000 1000 / 1000 1/2 Normal Saline Inj 1,000 ML 1000 / 1000 1000 / 1000 1000 / 1000 @ 70 mls/hr IV.CONT .[id number] [facility] Rx#:[id number] Tube Irrigant 200 / 200 Water Bolus Amount 200 / 200 Output: Urine 500 / 500 200 / 200 Other: # Voids 2 1 Date of Last Bowel Movement 07/30/18 # Bowel Movements 1 1 Narrative: GENERAL: in no apparent distress. CARDIOVASCULAR: Regular rate and rhythm without murmurs, gallops, or rubs. RESPIRATORY: Clear to auscultation. Breath sounds equal bilaterally. GASTROINTESTINAL: Abdomen soft, tender, nondistended. Normal active bowel sounds MUSCULOSKELETAL: Extremities without clubbing, cyanosis, or edema. NEURO: Alert & Oriented x4 Results - Labs CBC & Chem 7: 07/30/18 05:27 07/30/18 05:27 Laboratory Results - last 24 hr 07/30/18 07/30/18 05:27 05:27 WBC 22.6 H RBC 3.02 L Hgb 8.4 L Hct 26.7 L MCV 88.4 MCH 28.0 MCHC 31.6 L RDW 17.9 H Plt Count 354 MPV 7.8 Neut % (Auto) 91.4 H Lymph % (Auto) 4.2 L [place] % (Auto) 3.1 Eos % (Auto) 0.8 Baso % (Auto) 0.5 Neut # (Auto) 20.6 H Lymph # (Auto) 0.9 L [place] # (Auto) 0.7 Eos # (Auto) 0.2 Baso # (Auto) 0.1 WBC Differential . Differential Comment Auto diff final Sodium 136 Potassium 3.7 Chloride 99 Carbon Dioxide 21.1 Anion Gap 16 H BUN 36 H Creatinine 2.35 H Estimated GFR 24 L Random Glucose 61 L Calcium 7.9 L Total Bilirubin 0.4 AST 8 L ALT 10 Alkaline Phosphatase 76 Total Protein 6.3 L Albumin 2.0 L Lipase 758 H - Imaging Abdomen/Pelvis CT 07/28/18 01:18 CONCLUSION: 1. Postoperative changes of biliary stent with biliary drainage catheter passing through the stent. Gastrojejunostomy tube again noted. 2. Mild stranding of fat around the pancreas could indicate a mild pancreatitis. 3. 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 Assessment and Plan - Plan Assessment: - Acute on chronic pancreatitis/ Idiopathic pancreatitis- lipase is trending down. 2673 ---> 758, LFTs wnl well known to our service- follows Dr. Ortega outpatient Pt has had multiple stents placed- last ERCP done June 30 --> Plastic stent was removed, metallic stent seemed to be migrated inside the duct, cholangiogram revealed the duct to be full of debris and stones, S/P sweeping with balloon multiple stones and significant amount of sludge and thick material removed, duct was irrigated, and a new 10 [place]oth[place] 9cm stent was placed inside the already placed metallic stent. Abdomen/Pelvis CT 07/28/18 1. Postoperative changes of biliary stent with biliary drainage catheter passing through the stent. Gastrojejunostomy tube again noted. 2. Mild stranding of fat around the pancreas could indicate a mild pancreatitis. 3. 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 - Anemia- no bleeding reported, likely anemia of chronic dz - leukocytosis- Trending down 22.6 - Gastroparesis- Pt with GJ tube- continuous TF through J tube at night, G tube stays clamped. Plan: NPO, IV fluids Pain management per attending Monitor labs Plan for ERCP with stent exchange Wednesday Consent for ERCP Further recommendations to follow She was seen from Dr. Schwartz note was written on her behalf
[2018-07-31] MEDS: Acetaminophen 325 MG Tablet PO PRN ×2 (00:27→07:31)
[2018-07-31] MEDS: HYDROmorphone PF Inj 2 MG/ML Vial IV.PUSH PRN ×2 (02:50→08:47)
[2018-07-31 05:55] LABS: Baso # (Auto) 0.1 th/mm3 (0.0-0.2); Baso % (Auto) 0.5 % (0.0-2.0); Eos # (Auto) 0.2 th/mm3 (0.0-0.4); Eos % (Auto) 0.7 % (0.0-4.0); Hemoglobin 8.1 gm/dL (11.6-15.3); Lymph # (Auto) 1.1 th/mm3 (1.0-4.8); Lymph % (Auto) 4.6 % (9.0-44.0); Mean Corpuscular HGB Conc 32.6 % (32.0-36.0); Mean Corpuscular Hemoglobin 28.8 pg (27.0-34.0); Mean Corpuscular Volume 88.4 fL (80.0-100.0); Mean Platelet Volume 8.2 fL (7.0-11.0); Mono % (Auto) 4.3 % (0.0-8.0); Neut # (Auto) 22.1 th/mm3 (1.8-7.7); Neut % (Auto) 89.9 % (16.0-70.0); Platelet Count 364 th/mm3 (150-450); Red Blood Count 2.83 mil/mm3 (4.00-5.30); Red Cell Distribution Width 17.3 % (11.6-17.2); White Blood Count 24.6 th/mm3 (4.0-11.0)
[2018-07-31 06:26] LABS: Calcium 7.6 mg/dL (8.5-10.1); Carbon Dioxide 19.1 meq/L (21.0-32.0); Magnesium 1.2 mg/dL (1.5-2.5); Potassium 3.4 meq/L (3.5-5.1)
[2018-07-31] MEDS: Sodium Chloride 0.45 % Inj 1,000 ML IV.CONT SCH ×2 (06:30→16:32)
[2018-07-31] MEDS: Sucralfate 1 GM Tablet PO SCH ×3 (08:15→17:42)
[2018-07-31] MEDS: Metoprolol Tartrate 25 MG Tablet PO SCH ×2 (08:15→20:21)
[2018-07-31] MEDS: amLODIPine 5 MG Tablet PO SCH (08:15)
[2018-07-31] MEDS: Lipase/Protease/Amylase 12/38/60 DR Capsule PO SCH ×3 (08:40→18:08)
[2018-07-31] MEDS ORDERED: Potassium Chloride 10 MEQ ER Capsule PO ONE (10:00)
[2018-07-31] MEDS: Mag Sulf 1 gm/100 ml Premix 100 ML IV.SIG SCH ×2 (10:05→11:08)
--- NOTE | 2018-07-31 12:54 | P.PNIM ---
Subjective Interval history: Pt has NO new complaints. Physical Exam Vital signs: 07/31/18 09:15 07/31/18 10:50 07/31/18 12:00 Temperature 99.0 F Pulse Rate 82 Respiratory Rate 18 18 17 Blood Pressure 120/58 L Pulse Oximetry 99 Narrative: GENERAL: This is a well-nourished, well-developed patient, in no apparent distress. CARDIOVASCULAR: Regular rate and rhythm without murmurs, gallops, or rubs. RESPIRATORY: Clear to auscultation. Breath sounds equal bilaterally. No wheezes , rales, or rhonchi. GASTROINTESTINAL: Abdomen soft, non-tender, nondistended. Normal active bowel sounds MUSCULOSKELETAL: Extremities without clubbing, cyanosis, or edema. NEURO: Alert & Oriented x4 to person, place, time, situation. Moves all ext x4 Results - Labs CBC & Chem 7: 08/19/18 03:29 08/19/18 03:29 Assessment and Plan - Assessment (1) Idiopathic pancreatitis Code(s): K85.00 - Idiopathic acute pancreatitis without necrosis or infection Status: Acute Plan: Idiopathic pancreatitis Ms. Larsen is an 82 y/o AAF with recurrent idiopathic pancreatitis. She has been hospitalized numerous times for issues with pain control related to recurrent pancreatitis. Her last admission was from 07/13/18 to 07/26/18 due to WAYNE, idiopathic pancreatitis and had her GJ tube exchanged 07/25/18. Patient again presented to the ER last night due to worsening abd pain associated with nausea but no vomiting. Patient reprots that she always had mild epigastric pain, but yesterday evening it again became more severe and is associated with nausea but not vomiting. Denies fever or chills, chest pain, cough, difficulty flushing J tube, or diarrhea. - On admission WBC 21.6, BUN 44, creatinine 2.60 and lipase 2673. - CT abd/pelvis was done and revealed: 1. Postoperative changes of biliary stent with biliary drainage catheter passing through the stent. Gastrojejunostomy tube again noted. 2. Mild stranding of fat around the pancreas could indicate a mild pancreatitis. 3. 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 - WBC 21.6 (07/28), 24.9 (07/29), 22.6 (07/30), 24 (07/31) - lipase 2673 (07/28), 2471 (07/29), 758 (07/30), 215 (08/10) - trial of clears, NPO after MN - IVF for hydration - PO and IV pain medication as needed - Appreciate input from GI. Pt to have repeat ERCP with stent exchange on Wednesday , 08/01/18 - hold TF at this time - SCDs for DVT prophylaxis chronic kidney failure - Pt with baseline stage 3 CKD, pt follows with Dr. Melara - avoid nephrotoxic agents HTN (hypertension) - Cont. home meds - Monitor GERD (gastroesophageal reflux disease) - PPI Hypomagnesemia - replete anemia - d/t chronic disease - this diagnosis has been explored during prior hospitalizations and d/w Hematology - anemia felt to be d/t underlying disease processes - observe (1) Idiopathic pancreatitis Qualifiers:
--- NOTE | 2018-07-31 14:31 | P.DIET ---
Nutritional Evaluation Screening comments: NPO ALERT X 3 DAYS. NUTRITION ASSESSMENT COMPLETED 07/28, DIETITIAN FOLLOWING. Objective - Objective Diet Order: NPO
--- NOTE | 2018-07-31 15:09 | P.PNGI ---
Subjective Interval history: Pt is sleeping in bed, awakes to me calling her name, but falls back asleep, states pain is better. <Alex Hanks - Last Filed: 08/04/18 14:30> Physical Exam Vital signs: Vital Signs 07/30/18 20:00 07/30/18 21:25 07/31/18 00:00 Temperature 101 F H Pulse Rate 116 H 114 H 77 Respiratory Rate 17 Blood Pressure 134/67 Pulse Oximetry 96 07/31/18 00:39 07/31/18 04:27 07/31/18 08:00 Temperature 98.2 F 98.3 F 100.1 F H Pulse Rate 85 86 103 H Respiratory Rate 17 17 18 Blood Pressure 106/66 129/71 127/58 L Pulse Oximetry 94 L 97 100 07/31/18 09:00 07/31/18 09:15 07/31/18 10:50 Temperature Pulse Rate 105 H Respiratory Rate 18 18 Blood Pressure Pulse Oximetry 07/31/18 12:00 07/31/18 14:40 Temperature 99.0 F Pulse Rate 82 Respiratory Rate 17 18 Blood Pressure 120/58 L Pulse Oximetry 99 Intake & Output 07/30/18 07/31/18 07/31/18 18:59 06:59 18:59 Intake Total 1400 / 1400 1400 / 1400 1200 / 1200 Output Total 425 / 425 280 / 280 300 / 300 Balance 975 / 975 1120 / 1120 900 / 900 Weight 63 kg Intake: IV 1000 / 1000 1000 / 1000 1200 / 1200 1/2 Normal Saline Inj 1,000 ML 1000 / 1000 1000 / 1000 1000 / 1000 @ 100 mls/hr IV.CONT .Q10H [facility] Rx#:[id number] Magnesium Sulfate 1 gm/D5W 100 200 / 200 ml Premix 100 ML @ 100 mls/hr IV.SIG Q1H [facility] Rx#:[id number] Oral 0 / 0 Tube Irrigant 400 / 400 Water Bolus Amount 400 / 400 Output: Urine 425 / 425 280 / 280 300 / 300 Other: # Voids 1 1 Date of Last Bowel Movement 07/30/18 07/30/18 07/29/18 # Bowel Movements 0 <Chula Schwartz - Last Filed: 07/31/18 17:21> Vital signs: Vital Signs 07/30/18 16:00 07/30/18 16:05 07/30/18 20:00 Temperature 98.4 F 101 F H Pulse Rate 104 H 96 H 116 H Respiratory Rate 18 17 Blood Pressure 160/72 H 134/67 Pulse Oximetry 100 96 07/30/18 21:25 07/31/18 00:00 07/31/18 00:39 Temperature 98.2 F Pulse Rate 114 H 77 85 Respiratory Rate 17 Blood Pressure 106/66 Pulse Oximetry 94 L 07/31/18 04:27 07/31/18 08:00 07/31/18 09:00 Temperature 98.3 F 100.1 F H Pulse Rate 86 103 H 105 H Respiratory Rate 17 18 Blood Pressure 129/71 127/58 L Pulse Oximetry 97 100 07/31/18 09:15 07/31/18 10:50 07/31/18 12:00 Temperature 99.0 F Pulse Rate 82 Respiratory Rate 18 18 17 Blood Pressure 120/58 L Pulse Oximetry 99 Intake & Output 07/30/18 07/31/18 07/31/18 18:59 06:59 18:59 Intake Total 1400 / 1400 1400 / 1400 200 / 200 Output Total 425 / 425 280 / 280 300 / 300 Balance 975 / 975 1120 / 1120 -100 / -100 Weight 63 kg Intake: IV 1000 / 1000 1000 / 1000 200 / 200 1/2 Normal Saline Inj 1,000 ML 1000 / 1000 1000 / 1000 @ 100 mls/hr IV.CONT .Q10H [facility] Rx#:[id number] Magnesium Sulfate 1 gm/D5W 100 200 / 200 ml Premix 100 ML @ 100 mls/hr IV.SIG Q1H [facility] Rx#:[id number] Oral 0 / 0 Tube Irrigant 400 / 400 Water Bolus Amount 400 / 400 Output: Urine 425 / 425 280 / 280 300 / 300 Other: # Voids 1 1 Date of Last Bowel Movement 07/30/18 07/30/18 07/29/18 # Bowel Movements 0 Narrative: GENERAL: This is a well-nourished, well-developed patient, in no apparent distress. CARDIOVASCULAR: Regular rate and rhythm without murmurs, gallops, or rubs. RESPIRATORY: Clear to auscultation. Breath sounds equal bilaterally. No wheezes , rales, or rhonchi. GASTROINTESTINAL: Abdomen soft, tender, nondistended. Normal active bowel sounds G-J tube MUSCULOSKELETAL: Extremities without clubbing, cyanosis, or edema. NEURO: Alert & Oriented x4 <Alex Hanks - Last Filed: 08/04/18 14:30> Results - Labs CBC & Chem 7: 07/31/18 04:17 07/31/18 04:17 Laboratory Results - last 24 hr 07/31/18 07/31/18 04:17 04:17 WBC 24.6 H RBC 2.83 L Hgb 8.1 L Hct 25.0 L MCV 88.4 MCH 28.8 MCHC 32.6 RDW 17.3 H Plt Count 364 MPV 8.2 Neut % (Auto) 89.9 H Lymph % (Auto) 4.6 L [place] % (Auto) 4.3 Eos % (Auto) 0.7 Baso % (Auto) 0.5 Neut # (Auto) 22.1 H Lymph # (Auto) 1.1 [place] # (Auto) 1.0 H Eos # (Auto) 0.2 Baso # (Auto) 0.1 WBC Differential . Differential Comment Auto diff final Sodium 134 L Potassium 3.4 L Chloride 98 Carbon Dioxide 19.1 L Anion Gap 17 H BUN 30 H Creatinine 2.38 H Estimated GFR 24 L Random Glucose 55 L Calcium 7.6 L Magnesium 1.2 L Lipase 215 <Chula Schwartz - Last Filed: 07/31/18 17:21> - Labs CBC & Chem 7: 08/04/18 06:50 08/04/18 06:50 Laboratory Results - last 24 hr 07/31/18 07/31/18 04:17 04:17 WBC 24.6 H RBC 2.83 L Hgb 8.1 L Hct 25.0 L MCV 88.4 MCH 28.8 MCHC 32.6 RDW 17.3 H Plt Count 364 MPV 8.2 Neut % (Auto) 89.9 H Lymph % (Auto) 4.6 L [place] % (Auto) 4.3 Eos % (Auto) 0.7 Baso % (Auto) 0.5 Neut # (Auto) 22.1 H Lymph # (Auto) 1.1 [place] # (Auto) 1.0 H Eos # (Auto) 0.2 Baso # (Auto) 0.1 WBC Differential . Differential Comment Auto diff final Sodium 134 L Potassium 3.4 L Chloride 98 Carbon Dioxide 19.1 L Anion Gap 17 H BUN 30 H Creatinine 2.38 H Estimated GFR 24 L Random Glucose 55 L Calcium 7.6 L Magnesium 1.2 L Lipase 215 <Alex Hanks - Last Filed: 08/04/18 14:30> Assessment and Plan - Attending Attestation Seen, examined agree with above daughter would like a call before any procedure patient has recurrent CBD stones , has a metallic stent was kinked, possible migrated ,two plastic stents were placed , exchanged recently . Plan was to place another metallic stent clear liquid diet we will reevaluate in am and we will discuss plan with daughter before any intervention- on for the week start Actigall and please continue at home <Chula Schwartz - Last Filed: 07/31/18 17:21> - Plan Assessment: - Acute on chronic pancreatitis/ Idiopathic pancreatitis- lipase is trending down. 2673 ---> 215 LFTs wnl well known to our service- follows Dr. Ortega outpatient Pt has had multiple stents placed- Last ERCP done June 30 --> Plastic stent was removed, metallic stent seemed to be migrated inside the duct, cholangiogram revealed the duct to be full of debris and stones, S/P sweeping with balloon multiple stones and significant amount of sludge and thick material removed, duct was irrigated, and a new 10 [place] 9cm stent was placed inside the already placed metallic stent. Abdomen/Pelvis CT 07/28/18 1. Postoperative changes of biliary stent with biliary drainage catheter passing through the stent. Gastrojejunostomy tube again noted. 2. Mild stranding of fat around the pancreas could indicate a mild pancreatitis. 3. 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 - Recurrent stones in CBD- s/p several ERCP with stent, plans for metallic stent - Anemia- no bleeding reported, likely anemia of chronic dz - leukocytosis- today is 24.6 - Gastroparesis- Pt with GJ tube- continuous TF through J tube at night, G tube stays clamped. Plan: NPO IV fluids Pain management per attending Monitor labs Plan for ERCP with stent exchange tomorrow Consent Further recommendations to follow She was seen from Dr. Schwartz note was written on her behalf <Alex Hanks - Last Filed: 08/04/18 14:30>
[2018-08-01] MEDS: Sodium Chloride 0.45 % Inj 1,000 ML IV.CONT SCH ×4 (01:50→21:59)
[2018-08-01] MEDS: HYDROmorphone PF Inj 2 MG/ML Vial IV.PUSH PRN ×3 (02:00→20:12)
[2018-08-01] MEDS ORDERED: Metoprolol Tartrate 25 MG Tablet PO ONE (05:45)
[2018-08-01] MEDS ORDERED: Chlorhexidine Gluconate 2% 1 Pack (2 Cloths) TOPICAL ONE (05:45)
[2018-08-01] MEDS ORDERED: Sodium Chlor 0.9% Inj 500 ML IV.SIG SCH (06:00)
--- NOTE | 2018-08-01 08:13 | P.PNIM ---
Subjective Interval history: Follow up idiopathic pancreatitis Patient reports that abd pain has improved since admission but not completely resolved Patient offers no other concerns/complaints at this time Physical Exam Vital signs: Vital Signs 07/31/18 09:00 07/31/18 09:15 07/31/18 10:50 Temperature Pulse Rate 105 H Respiratory Rate 18 18 Blood Pressure Pulse Oximetry 07/31/18 12:00 07/31/18 14:40 07/31/18 16:15 Temperature 99.0 F Pulse Rate 88 109 H Respiratory Rate 17 18 Blood Pressure 120/58 L Pulse Oximetry 99 07/31/18 20:00 08/01/18 00:36 08/01/18 04:22 Temperature 100.7 F H 97.9 F 97.4 F L Pulse Rate 118 H 89 94 H Respiratory Rate 17 17 16 Blood Pressure 118/58 L 113/74 126/65 Pulse Oximetry 95 94 L 97 08/01/18 04:49 Temperature Pulse Rate Respiratory Rate 20 Blood Pressure Pulse Oximetry Intake & Output 07/31/18 08/01/18 08/01/18 18:59 06:59 18:59 Intake Total 1200 / 1200 1000 / 1000 Output Total 525 / 525 380 / 380 Balance 675 / 675 620 / 620 Weight 63 kg Intake: IV 1200 / 1200 1000 / 1000 1/2 Normal Saline Inj 1,000 ML 1000 / 1000 1000 / 1000 @ 100 mls/hr IV.CONT .Q10H [facility] Rx#:[id number] Magnesium Sulfate 1 gm/D5W 100 200 / 200 ml Premix 100 ML @ 100 mls/hr IV.SIG Q1H [facility] Rx#:[id number] Oral 0 / 0 Output: Urine 525 / 525 380 / 380 Other: # Voids 2 Date of Last Bowel Movement 07/29/18 # Bowel Movements 1 Narrative: GENERAL: This is a 82 year old female, well-developed patient, in no apparent distress. CARDIOVASCULAR: Regular rate and rhythm RESPIRATORY: Clear to auscultation. Breath sounds equal bilaterally. GASTROINTESTINAL: Abdomen soft, mild tender worse RUQ, nondistended. Normal active bowel sounds MUSCULOSKELETAL: Extremities without clubbing, cyanosis, or edema. NEURO: Alert & Oriented. Moves all ext x4 Results - Labs CBC & Chem 7: 07/31/18 04:17 07/31/18 04:17 Assessment and Plan - Assessment (1) Idiopathic pancreatitis Code(s): K85.00 - Idiopathic acute pancreatitis without necrosis or infection Status: Acute Plan: Idiopathic pancreatitis Ms. Larsen is an 82 y/o AAF with recurrent idiopathic pancreatitis. She has been hospitalized numerous times for issues with pain control related to recurrent pancreatitis. Her last admission was from 07/13/18 to 07/26/18 due to WAYNE, idiopathic pancreatitis and had her GJ tube exchanged 07/25/18. Patient again presented to the ER last night due to worsening abd pain associated with nausea but no vomiting. Patient reprots that she always had mild epigastric pain, but yesterday evening it again became more severe and is associated with nausea but not vomiting. Denies fever or chills, chest pain, cough, difficulty flushing J tube, or diarrhea. - On admission WBC 21.6, BUN 44, creatinine 2.60 and lipase 2673. - CT abd/pelvis was done and revealed: 1. Postoperative changes of biliary stent with biliary drainage catheter passing through the stent. Gastrojejunostomy tube again noted. 2. Mild stranding of fat around the pancreas could indicate a mild pancreatitis. 3. 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 - WBC 21.6 (07/28), 24.9 (07/29), 22.6 (07/30), 24 (07/31) - lipase 2673 (07/28), 2471 (07/29), 758 (07/30), 215 (08/10) - trial of clears, NPO after MN - IVF for hydration - PO and IV pain medication as needed - Appreciate input from GI. Plan to have repeat ERCP with stent exchange on 08/01/18 - hold TF at this time - SCDs for DVT prophylaxis chronic kidney failure - Pt with baseline stage 3 CKD, pt follows with Dr. Melara - avoid nephrotoxic agents HTN (hypertension) - Cont. home meds - Monitor GERD (gastroesophageal reflux disease) - PPI Hypomagnesemia - replete anemia - d/t chronic disease - this diagnosis has been explored during prior hospitalizations and d/w Hematology - anemia felt to be d/t underlying disease processes - observe recheck labs in AM The exam, history, and the medical decision-making described in the above note were completed with the assistance of the mid-level provider. I reviewed and agree with the findings presented. I attest that I had a uhnt-er-ntic encounter with the patient on the same day, and personally performed and documented my assessment and findings in the medical record. ercp today. (1) Idiopathic pancreatitis Qualifiers:
[2018-08-01] MEDS: Metoprolol Tartrate 25 MG Tablet PO SCH ×2 (08:22→20:11)
[2018-08-01] MEDS: Sucralfate 1 GM Tablet PO SCH ×3 (08:22→17:09)
[2018-08-01] MEDS: amLODIPine 5 MG Tablet PO SCH (08:22)
[2018-08-01] MEDS: Lipase/Protease/Amylase 12/38/60 DR Capsule PO SCH ×3 (08:35→18:46)
--- NOTE | 2018-08-01 14:06 | P.PNGI ---
Subjective Interval history: Patient laying supine in bed with eyes closed. Denies nausea and vomiting. States abdominal pain epigastric and radiates to right upper quadrant. Rates same as 6-7/10 and states is less severe than upon admission. No BM today, last BM 2 days ago per patient. When patient evaluated this am, she reported that her daughter wanted to speak with Dr. Ortega before consenting to ERCP. <Malu Yueny - Last Filed: 08/01/18 14:06> Physical Exam Vital signs: Vital Signs 07/31/18 14:40 07/31/18 16:15 07/31/18 20:00 Temperature 100.7 F H Pulse Rate 109 H 118 H Respiratory Rate 18 17 Blood Pressure 118/58 L Pulse Oximetry 95 08/01/18 00:36 08/01/18 04:22 08/01/18 04:49 Temperature 97.9 F 97.4 F L Pulse Rate 89 94 H Respiratory Rate 17 16 20 Blood Pressure 113/74 126/65 Pulse Oximetry 94 L 97 08/01/18 08:00 08/01/18 09:00 08/01/18 12:00 Temperature 98.4 F 97.3 F L Pulse Rate 95 H 76 87 Respiratory Rate 16 18 Blood Pressure 118/59 L 105/68 Pulse Oximetry 99 99 Intake & Output 07/31/18 08/01/18 08/01/18 18:59 06:59 18:59 Intake Total 1200 / 1200 1000 / 1000 1000 / 1000 Output Total 525 / 525 380 / 380 Balance 675 / 675 620 / 620 1000 / 1000 Weight 63 kg Intake: IV 1200 / 1200 1000 / 1000 1000 / 1000 1/2 Normal Saline Inj 1,000 ML 1000 / 1000 1000 / 1000 1000 / 1000 @ 100 mls/hr IV.CONT .Q10H [facility] Rx#:[id number] Magnesium Sulfate 1 gm/D5W 100 200 / 200 ml Premix 100 ML @ 100 mls/hr IV.SIG Q1H [facility] Rx#:[id number] Oral 0 / 0 Output: Urine 525 / 525 380 / 380 Other: # Voids 2 Date of Last Bowel Movement 07/29/18 07/30/18 # Bowel Movements 1 - Constitutional mild distress - Routine HEENT Exam Head: Present: normocephalic - Routine Neck Exam Present: supple - Routine Respiratory Exam Present: CTA bilaterally. Absent: accessory muscle use, respiratory distress - Routine Cardiovascular Exam Present: RRR - Routine Abdominal Exam Present: normoactive bowel sounds, tenderness, distended, guarding. Absent: firm, rigid - Routine Extremities Exam Present: pulses intact. Absent: edema - Routine Skin Exam Present: dry, warm - Routine Neurological Exam Present: alert, oriented X3 - Detailed Neurological Exam: Coma Scale Eye Opening: Spontaneous Verbal Response: Oriented Motor Response: Obey commands [place] Coma Scale Total: 15 - Routine Psychiatric Exam Present: normal affect <Nani Yuen - Last Filed: 08/01/18 14:06> Vital signs: Vital Signs 08/01/18 00:36 08/01/18 04:22 08/01/18 04:49 Temperature 97.9 F 97.4 F L Pulse Rate 89 94 H Respiratory Rate 17 16 20 Blood Pressure 113/74 126/65 Pulse Oximetry 94 L 97 08/01/18 08:00 08/01/18 09:00 08/01/18 12:00 Temperature 98.4 F 97.3 F L Pulse Rate 95 H 76 87 Respiratory Rate 16 18 Blood Pressure 118/59 L 105/68 Pulse Oximetry 99 99 08/01/18 16:00 Temperature 98.3 F Pulse Rate 89 Respiratory Rate 16 Blood Pressure 132/63 Pulse Oximetry 98 Intake & Output 08/01/18 08/01/18 08/02/18 06:59 18:59 06:59 Intake Total 1000 / 1000 1680 / 1680 Output Total 380 / 380 600 / 600 Balance 620 / 620 1080 / 1080 Weight 63 kg Intake: IV 1000 / 1000 1000 / 1000 1/2 Normal Saline Inj 1,000 ML 1000 / 1000 1000 / 1000 @ 100 mls/hr IV.CONT .Q10H [facility] Rx#:[id number] Oral 480 / 480 Water Bolus Amount 200 / 200 Output: Urine 380 / 380 600 / 600 Other: Date of Last Bowel Movement 07/30/18 <Gregg Ortega - Last Filed: 08/01/18 20:49> Results - Labs CBC & Chem 7: 07/31/18 04:17 07/31/18 04:17 <Nani Yuen - Last Filed: 08/01/18 14:06> - Labs CBC & Chem 7: 07/31/18 04:17 07/31/18 04:17 <Gregg Ortega - Last Filed: 08/01/18 20:49> Assessment and Plan - Plan Assessment: - Acute on chronic pancreatitis/ Idiopathic pancreatitis- lipase is trending down. 2673 ---> 215 LFTs wnl well known to our service- follows Dr. Ortega outpatient Pt has had multiple stents placed- Last ERCP done June 30 --> Plastic stent was removed, metallic stent seemed to be migrated inside the duct, cholangiogram revealed the duct to be full of debris and stones, S/P sweeping with balloon multiple stones and significant amount of sludge and thick material removed, duct was irrigated, and a new 10 [place] 9cm stent was placed inside the already placed metallic stent. Abdomen/Pelvis CT 07/28/18 1. Postoperative changes of biliary stent with biliary drainage catheter passing through the stent. Gastrojejunostomy tube again noted. 2. Mild stranding of fat around the pancreas could indicate a mild pancreatitis. 3. 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 - Anemia- no bleeding reported, likely anemia of chronic dz - leukocytosis- today is 24.6 - Gastroparesis- Pt with GJ tube- continuous TF through J tube at night, G tube stays clamped. 08/01/18 Patient laying supine in bed this am and reports decreasing abdominal pain. Rates same as 6-7/10 upon exam. Denies nausea or vomiting. States last BM 2 days ago. Pt denies any noted bleeding. Pt with GJ tube in place. Most recent labs reveal 07/31/18 wbc 24.6, hgb 8.1 hct 25.0. Lipase 215 and trending down from admission on 07/28/18 2673. Will consider ERCP for tomorrow. Will advance diet today to full liquids and NPO after midnight for procedure. Plan: Full liquid diet for lunch and dinner today NPO after midnight IV fluids Pain medications as ordered per attending MD Will continue to monitor labs Consent and plan for ERCP tomorrow Supportive care Further recommendations to follow This patient was seen by myself and Dr. Ortega and this noted has been written on his behalf. <Nani Yuen - Last Filed: 08/01/18 14:06> - Attending Attestation Patient seen and examined Agree with above Continue with current supportive care Monitor labs I had a lengthy discussion with both the daughter and the patient we will proceed with an ERCP hopefully with a metal stent placement of the distal bile duct so as to bridge the ingrowth <Gregg Ortega E - Last Filed: 08/01/18 20:49>
[2018-08-01] MEDS: Acetaminophen 325 MG Tablet PO PRN (20:11)
[2018-08-02] MEDS: HYDROmorphone PF Inj 2 MG/ML Vial IV.PUSH SCH ×2 (04:44→10:47)
[2018-08-02 05:08] LABS: Baso # (Auto) 0.1 th/mm3 (0.0-0.2); Baso % (Auto) 0.5 % (0.0-2.0); Eos # (Auto) 0.2 th/mm3 (0.0-0.4); Eos % (Auto) 0.8 % (0.0-4.0); Hematocrit 25.3 % (35.0-46.0); Hemoglobin 8.1 gm/dL (11.6-15.3); Lymph % (Auto) 4.5 % (9.0-44.0); Mean Corpuscular Hemoglobin 28.4 pg (27.0-34.0); Mean Corpuscular Volume 88.9 fL (80.0-100.0); Mono # (Auto) 1.3 th/mm3 (0.0-0.9); Mono % (Auto) 5.7 % (0.0-8.0); Neut # (Auto) 19.6 th/mm3 (1.8-7.7); Neut % (Auto) 88.5 % (16.0-70.0); Platelet Count 336 th/mm3 (150-450); Red Blood Count 2.85 mil/mm3 (4.00-5.30); Red Cell Distribution Width 17.7 % (11.6-17.2); White Blood Count 22.1 th/mm3 (4.0-11.0)
[2018-08-02 05:34] LABS: Alanine Aminotransferase 8 U/L (10-53); Albumin 1.6 g/dL (3.4-5.0); Anion Gap 16 meq/L (5-15); Aspartate Aminotransferase 8 U/L (15-37); Blood Urea Nitrogen 31 mg/dL (7-18); Calcium 7.7 mg/dL (8.5-10.1); Carbon Dioxide 19.2 meq/L (21.0-32.0); Chloride 100 meq/L (98-107); Glomerular Filtration Rate 18 mL/min (>89); Glucose,Random 61 mg/dL (74-106); Lipase 155 U/L (73-393); Potassium 3.2 meq/L (3.5-5.1); Sodium 135 meq/L (136-145)
[2018-08-02 05:36] LABS: Alkaline Phosphatase 80 U/L (45-117); Total Protein 5.6 g/dL (6.4-8.2)
[2018-08-02] MEDS: Sodium Chloride 0.45 % Inj 1,000 ML IV.CONT SCH (06:51)
[2018-08-02 07:44] LABS: Eosinophils 1 % (0-4); Lymphocytes 7 % (9-44); Monocytes 5 % (0-8)
[2018-08-02 07:45] LABS: Platelet Estimate Normal (Normal); Platelet Morphology Normal (Normal)
[2018-08-02] MEDS: Sucralfate 1 GM Tablet PO SCH ×3 (08:10→17:44)
[2018-08-02] MEDS: amLODIPine 5 MG Tablet PO SCH (08:11)
[2018-08-02] MEDS: Metoprolol Tartrate 25 MG Tablet PO SCH ×2 (08:11→19:59)
[2018-08-02] MEDS: Lipase/Protease/Amylase 12/38/60 DR Capsule PO SCH ×3 (08:25→17:45)
--- NOTE | 2018-08-02 08:49 | P.PNIM ---
Subjective Interval history: Follow up idiopathic pancreatitis and abd pain patient reports abd pain better than when she was admitted but still present plan for ERCP with stent exchange today Physical Exam Vital signs: Vital Signs 08/01/18 09:00 08/01/18 12:00 08/01/18 16:00 Temperature 97.3 F L 98.3 F Pulse Rate 76 87 89 Respiratory Rate 18 16 Blood Pressure 105/68 132/63 Pulse Oximetry 99 98 08/01/18 20:00 08/02/18 00:00 08/02/18 04:00 Temperature 97.8 F 97.7 F 97.8 F Pulse Rate 89 74 90 Respiratory Rate 16 17 18 Blood Pressure 127/65 116/60 134/66 Pulse Oximetry 100 96 96 08/02/18 07:20 Temperature 98.2 F Pulse Rate 97 H Respiratory Rate 18 Blood Pressure 126/62 Pulse Oximetry 98 Intake & Output 08/01/18 08/02/18 08/02/18 18:59 06:59 18:59 Intake Total 1680 / 1680 1999 / 1999 Output Total 600 / 600 400 / 400 300 / 300 Balance 1080 / 1080 1600 / 1600 -300 / -300 Intake: IV 1000 / 1000 1999 / 1999 1/2 Normal Saline Inj 1,000 ML 1000 / 1000 1999 / 2000 @ 100 mls/hr IV.CONT .Q10H [facility] Rx#:[id number] Oral 480 / 480 Water Bolus Amount 200 / 200 Output: Urine 600 / 600 400 / 400 300 / 300 Other: Date of Last Bowel Movement 07/30/18 # Bowel Movements 1 Narrative: GENERAL: This is a 82 year old female, well-developed patient, in no apparent distress. CARDIOVASCULAR: Regular rate and rhythm RESPIRATORY: Clear to auscultation. Breath sounds equal bilaterally. GASTROINTESTINAL: Abdomen soft, mild tender worse RUQ, nondistended. Normal active bowel sounds MUSCULOSKELETAL: Extremities without clubbing, cyanosis, or edema. NEURO: Alert & Oriented. Moves all ext x4 Results - Labs CBC & Chem 7: 08/02/18 03:33 08/02/18 03:33 Laboratory Results - last 24 hr 08/02/18 08/02/18 03:33 03:33 WBC 22.1 H RBC 2.85 L Hgb 8.1 L Hct 25.3 L MCV 88.9 MCH 28.4 MCHC 32.0 RDW 17.7 H Plt Count 336 MPV 8.0 Prelim Diff (Auto) Slide review pending Neut % (Auto) 88.5 H Lymph % (Auto) 4.5 L [place] % (Auto) 5.7 Eos % (Auto) 0.8 Baso % (Auto) 0.5 Neut # (Auto) 19.6 H Lymph # (Auto) 1.0 [place] # (Auto) 1.3 H Eos # (Auto) 0.2 Baso # (Auto) 0.1 WBC Differential Manual diff final Seg Neuts % (Manual) 68 Band Neuts % (Manual) 19 H Lymphocytes % (Manual) 7 L Monocytes % (Manual) 5 Eosinophils % (Manual) 1 Abs Neuts (Manual) 19.2 H Differential Comment . Platelet Estimate Normal Platelet Morphology Normal Sodium 135 L Potassium 3.2 L Chloride 100 Carbon Dioxide 19.2 L Anion Gap 16 H BUN 31 H Creatinine 2.97 H Estimated GFR 18 L Random Glucose 61 L Calcium 7.7 L Total Bilirubin 0.3 AST 8 L ALT 8 L Alkaline Phosphatase 80 Total Protein 5.6 L D Albumin 1.6 L Lipase 155 Assessment and Plan - Assessment (1) Idiopathic pancreatitis Code(s): K85.00 - Idiopathic acute pancreatitis without necrosis or infection Status: Acute Plan: Idiopathic pancreatitis Ms. Larsen is an 82 y/o AAF with recurrent idiopathic pancreatitis. She has been hospitalized numerous times for issues with pain control related to recurrent pancreatitis. Her last admission was from 07/13/18 to 07/26/18 due to WAYNE, idiopathic pancreatitis and had her GJ tube exchanged 07/25/18. Patient again presented to the ER last night due to worsening abd pain associated with nausea but no vomiting. Patient reprots that she always had mild epigastric pain, but yesterday evening it again became more severe and is associated with nausea but not vomiting. Denies fever or chills, chest pain, cough, difficulty flushing J tube, or diarrhea. - On admission WBC 21.6, BUN 44, creatinine 2.60 and lipase 2673. - CT abd/pelvis was done and revealed: 1. Postoperative changes of biliary stent with biliary drainage catheter passing through the stent. Gastrojejunostomy tube again noted. 2. Mild stranding of fat around the pancreas could indicate a mild pancreatitis. 3. 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 - WBC 21.6 (07/28), 24.9 (07/29), 22.6 (07/30), 24 (07/31), 22.1 (08/02) - lipase 2673 (07/28), 2471 (07/29), 758 (07/30), 215 (08/10), 155 (08/02) - IVF for hydration - PO and IV pain medication as needed - Appreciate input from GI. Plan to have repeat ERCP with stent exchange today, 08/02/18 (ERCP and stent exchange cancelled yesterday patient's daughter needed to talk with Dr. Ortega prior to signing consent.) - hold TF at this time - plan to start clear liquid diet after stent exchange complete - Plan to start TF [place] with goal rate 40mls/hr tomorrow 08/03 - SCDs for DVT prophylaxis chronic kidney failure - Pt with baseline stage 3 CKD, pt follows with Dr. Melara - avoid nephrotoxic agents HTN (hypertension) - Cont. home meds - Monitor GERD (gastroesophageal reflux disease) - PPI Hypomagnesemia - replete Hypokalemia - potassium level 3.2 add 2- meq of potassium to IVF solution - recheck in AM anemia - d/t chronic disease - this diagnosis has been explored during prior hospitalizations and d/w Hematology - anemia felt to be d/t underlying disease processes - observe recheck labs in AM (1) Idiopathic pancreatitis Qualifiers:
[2018-08-02] MEDS: KCL 20 mEq/NACL 0.45% Inj 1,000 ML IV.CONT SCH ×2 (08:50→17:44)
[2018-08-02] MEDS ORDERED: Chlorhexidine Gluconate 2% 1 Pack (2 Cloths) TOPICAL ONE (11:15)
[2018-08-02] MEDS ORDERED: Metoprolol Tartrate 25 MG Tablet PO ONE (11:15)
[2018-08-02] MEDS ORDERED: Sodium Chlor 0.9% Inj 500 ML IV.CONT ONE (11:15)
[2018-08-02] MEDS ORDERED: Sodium Chlor 0.9% Inj 250 ML IV.CONT ONE (13:00)
[2018-08-02] MEDS ORDERED: Lidocaine PF 1% Inj 5 ML Syringe OTHER ONE (13:00)
[2018-08-02] MEDS ORDERED: Sodium Chlor 0.9% Inj 500 ML I-ARTERIAL ONE (13:00)
[2018-08-02] MEDS ORDERED: Phenylephrine/NS 1000 MCG/10ML Syringe IV.PUSH ONE (13:00)
[2018-08-02] MEDS ORDERED: Artificial Tears Opth Oint 3.5 GM Tube ONE (13:54)
[2018-08-02] MEDS ORDERED: Dimethicone/Oxybenzone-Padimate Lip Balm 4.25 GM Tube TOPICAL ONE (13:56)
[2018-08-02] MEDS ORDERED: fentaNYL Citrate Inj 100 MCG/2 ML Ampul ONE (14:09)
--- NOTE | 2018-08-02 14:18 | FL ---
EXAM DATE: 08/02/2018 2:01 PM EDT AGE/SEX: 82 years / Female INDICATIONS: Obstruction. Stone extraction and stent placement. CLINICAL DATA: This is the patient's initial encounter. Patient reports that signs and symptoms have been present for 1 day and indicates a pain score of Nonresponsive. MEDICAL/SURGICAL HISTORY: Renal disease. Gastroesophageal reflux disease. Pancreatitis. Georgette cystectomy. COMPARISON: [facility] [place] ERCP, 06/30/2018. . FINDINGS: An ERCP was performed by the ordering physician. The images demonstrate a biliary stent is in place. CONCLUSION: A biliary stent has been placed. It is in good position. There is good filling of the hepatic ducts. Electronically signed by: Sanford Avina MD 08/02/2018 2:16 PM EDT
[2018-08-02] MEDS ORDERED: Dimethicone/Oxybenzone-Padimate Lip Balm 4.25 GM Tube TOPICAL PRN (14:32)
--- NOTE | 2018-08-02 19:39 | P.PCN ---
Date of procedure: 08/02/18 Pre-op diagnosis: Abdominal pain, acute on chronic pancreatitis, choledocholithiasis Procedure: PROCEDURE PERFORMED ERCP with stent removal, balloon extraction, and metal stent placement PROCEDURE: The procedure, risks and benefits were discussed with Patient/POA and informed consent was obtained. Anesthesia sedated Patient with Diprivan. Patient was placed in the left lateral decubitus position. ERCP: Patient was placed in a prone position. The Pentax videoscope was introduced through the oropharynx and advanced to the second portion of the duodenum where the ampula was identified. FINDINGS: The ampulla was noted to have a plastic stent protruding through it this was removed using a snare the scope was then repositioned and I was able to easily cannulate the common bile duct which had multiple filling defects and so using a 12 mm balloon I was able to clean out the bile duct multiple particles and sludge was removed once cleaned I was able to clearly see the ingrowth into the old metal stent and so a 10 Malay 40 mm stent was placed within the first metal stent and it protruded about a centimeter into the duodenum with good drainage noted the intrahepatics appeared to be unremarkable ESTIMATED BLOOD LOSS: None SPECIMENS REMOVED: None COMPLICATIONS: None IMPRESSION: Choledocholithiasis PLAN: We will continue to monitor labs and continue with current supportive care We will advance diet slowly Anesthesia: GETA Surgeon: Gregg Ortega Condition: stable Disposition: floor
[2018-08-03] MEDS: KCL 20 mEq/NACL 0.45% Inj 1,000 ML IV.CONT SCH ×3 (01:00→13:43)
[2018-08-03] MEDS: HYDROmorphone PF Inj 2 MG/ML Vial IV.PUSH PRN (06:07)
[2018-08-03 07:19] LABS: Baso # (Auto) 0.1 th/mm3 (0.0-0.2); Baso % (Auto) 0.2 % (0.0-2.0); Eos % (Auto) 0.1 % (0.0-4.0); Hematocrit 26.3 % (35.0-46.0); Hemoglobin 8.3 gm/dL (11.6-15.3); Lymph # (Auto) 1.2 th/mm3 (1.0-4.8); Lymph % (Auto) 3.7 % (9.0-44.0); Mean Corpuscular HGB Conc 31.6 % (32.0-36.0); Mean Corpuscular Hemoglobin 27.9 pg (27.0-34.0); Mean Corpuscular Volume 88.2 fL (80.0-100.0); Mean Platelet Volume 7.6 fL (7.0-11.0); Mono # (Auto) 1.2 th/mm3 (0.0-0.9); Mono % (Auto) 3.9 % (0.0-8.0); Neut # (Auto) 28.9 th/mm3 (1.8-7.7); Neut % (Auto) 92.1 % (16.0-70.0); Platelet Count 338 th/mm3 (150-450); Red Blood Count 2.97 mil/mm3 (4.00-5.30); Red Cell Distribution Width 17.8 % (11.6-17.2); White Blood Count 31.4 th/mm3 (4.0-11.0)
[2018-08-03 07:52] LABS: Alanine Aminotransferase 9 U/L (10-53); Albumin 1.7 g/dL (3.4-5.0); Alkaline Phosphatase 98 U/L (45-117); Anion Gap 15 meq/L (5-15); Aspartate Aminotransferase 9 U/L (15-37); Blood Urea Nitrogen 27 mg/dL (7-18); Calcium 7.8 mg/dL (8.5-10.1); Carbon Dioxide 16.6 meq/L (21.0-32.0); Chloride 103 meq/L (98-107); Glomerular Filtration Rate 18 mL/min (>89); Glucose,Random 75 mg/dL (74-106); Lipase 730 U/L (73-393); Potassium 3.6 meq/L (3.5-5.1); Sodium 135 meq/L (136-145)
[2018-08-03 08:21] LABS: Lymphocytes 2 % (9-44); Monocytes 3 % (0-8); Platelet Estimate Normal (Normal); Platelet Morphology Normal (Normal); Tallied Nucleated RBC 1 (0-0)
[2018-08-03] MEDS: amLODIPine 5 MG Tablet PO SCH (08:36)
[2018-08-03] MEDS: Metoprolol Tartrate 25 MG Tablet PO SCH ×2 (08:36→20:47)
[2018-08-03] MEDS: Sucralfate 1 GM Tablet PO SCH ×3 (08:37→17:04)
[2018-08-03] MEDS: Lipase/Protease/Amylase 12/38/60 DR Capsule PO SCH ×3 (08:40→17:40)
--- NOTE | 2018-08-03 11:28 | P.PNIM ---
Subjective Interval history: Pt reports that her abd pain and nausea are still present but controlled with meds She tolerated cereal for breakfast this morning Pt moving her bowels Physical Exam Vital signs: Vital Signs 08/02/18 11:17 08/02/18 13:55 08/02/18 14:00 Temperature 98.3 F Pulse Rate 105 H 108 H Respiratory Rate 18 18 18 Blood Pressure 125/59 L 132/67 Pulse Oximetry 100 100 08/02/18 14:15 08/02/18 14:25 08/02/18 16:00 Temperature 98.5 F 98.0 F Pulse Rate 104 H 107 H 113 H Respiratory Rate 19 17 16 Blood Pressure 142/72 H 146/74 H 137/64 Pulse Oximetry 98 99 96 08/02/18 20:00 08/03/18 00:00 08/03/18 00:23 Temperature 98.1 F 97.8 F Pulse Rate 109 H 88 91 H Respiratory Rate 17 18 Blood Pressure 118/56 L 121/56 L Pulse Oximetry 99 100 08/03/18 04:00 08/03/18 07:30 08/03/18 09:00 Temperature 97.8 F Pulse Rate 76 87 82 Respiratory Rate 18 16 Blood Pressure 148/71 H 139/66 Pulse Oximetry 96 100 Intake & Output 08/02/18 08/03/18 08/03/18 18:59 06:59 18:59 Intake Total 525 / 525 3140 / 3140 Output Total 300 / 300 1000 / 1000 Balance 225 / 225 3140 / 3140 -1000 / -1000 Intake: IV 2500 / 2500 Potassium Chlor 20 mEq/NACL 0. 1000 / 1000 45% Inj 1,000 ML @ 100 mls/hr IV.CONT .Q10H [facility] Rx#:[id number] NS Inj 500 ML @ 30 mls/hr IV. 500 / 500 SIG .Q10H [facility] Rx#:[id number] Oral 300 / 300 240 / 240 Tube Irrigant 400 / 400 Anesthesia Amount 225 / 225 Output: Urine 300 / 300 1000 / 1000 Other: Post Void Residual 1,000 # Voids 2 Date of Last Bowel Movement 07/30/18 07/30/18 # Bowel Movements 2 1 Narrative: GENERAL: This is a 82 year old female, well-developed patient, in no apparent distress. CARDIO: Regular RESP: CTA bilaterally. ABD: +BS, soft, mild tender worse RUQ, nondistended. EXT: No edema. Results - Labs CBC & Chem 7: 08/03/18 06:24 08/03/18 06:24 Laboratory Results - last 24 hr 08/03/18 08/03/18 06:24 06:24 WBC 31.4 H RBC 2.97 L Hgb 8.3 L Hct 26.3 L MCV 88.2 MCH 27.9 MCHC 31.6 L RDW 17.8 H Plt Count 338 MPV 7.6 Prelim Diff (Auto) Slide review pending Neut % (Auto) 92.1 H Lymph % (Auto) 3.7 L [place] % (Auto) 3.9 Eos % (Auto) 0.1 Baso % (Auto) 0.2 Neut # (Auto) 28.9 H Lymph # (Auto) 1.2 [place] # (Auto) 1.2 H Eos # (Auto) 0.0 Baso # (Auto) 0.1 WBC Differential Manual diff final Seg Neuts % (Manual) 91 H Band Neuts % (Manual) 4 Lymphocytes % (Manual) 2 L Monocytes % (Manual) 3 Abs Neuts (Manual) 29.8 H Nucleated RBCs/100 WBC 1 H Differential Comment . Platelet Estimate Normal Platelet Morphology Normal Sodium 135 L Potassium 3.6 Chloride 103 Carbon Dioxide 16.6 L Anion Gap 15 BUN 27 H Creatinine 2.97 H Estimated GFR 18 L Random Glucose 75 Calcium 7.8 L Total Bilirubin 0.3 AST 9 L ALT 9 L Alkaline Phosphatase 98 Total Protein 6.0 L Albumin 1.7 L Lipase 730 H - Imaging Impressions GI Procedure 08/02/18 00:00 CONCLUSION: A biliary stent has been placed. It is in good position. There is good filling of the hepatic ducts. Assessment and Plan - Assessment (1) Idiopathic pancreatitis Code(s): K85.00 - Idiopathic acute pancreatitis without necrosis or infection Status: Acute Plan: Idiopathic pancreatitis - Patient is an 82 y/o AAF with recurrent idiopathic pancreatitis. She has been hospitalized numerous times for issues with pain control related to recurrent pancreatitis. Her last admission was from 07/13/18 to 07/26/18 due to WAYNE, idiopathic pancreatitis and had her GJ tube exchanged 07/25/18. - Patient again presented to the ER last night due to worsening abd pain associated with nausea but no vomiting. Patient reports that she always had mild epigastric pain, but yesterday evening it again became more severe and is associated with nausea but not vomiting. Denies fever or chills, chest pain, cough, difficulty flushing J tube, or diarrhea. - On admission WBC 21.6, BUN 44, creatinine 2.60 and lipase 2673. - CT abd/pelvis was done and revealed: 1. Postoperative changes of biliary stent with biliary drainage catheter passing through the stent. Gastrojejunostomy tube again noted. 2. Mild stranding of fat around the pancreas could indicate a mild pancreatitis. 3. 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 - WBC 21.6 (07/28), 24.9 (07/29), 22.6 (07/30), 24 (07/31), 22.1 (08/02), 31.4 (08/03) - lipase 2673 (07/28), 2471 (07/29), 758 (07/30), 215 (08/10), 155 (08/02), 730 (08/03 ) - IVF for hydration - PO and IV pain medication as needed - Appreciate input from GI. - Pt underwent repeat ERCP with stent exchange, 08/02/18 (ERCP and stent exchange cancelled on 08/01 as patient's daughter needed to talk with Dr. Ortega prior to signing consent.). According to the procedure report, the common bile duct had multiple filling defects which were able to be cleaned out and once cleaned he was able to clearly see the ingrowth into the old metal stent and so a 10 [place] 40 mm stent was placed within the first metal stent and it protruded about a centimeter into the duodenum with good drainage noted. The intrahepatics appeared to be unremarkable - Pt has been tolerating advanced diet - Plan to start TF [place] with goal rate 40mls/hr today - SCDs for DVT prophylaxis Chronic kidney failure - Pt with baseline stage 3 CKD, pt follows with Dr. Melara - avoid nephrotoxic agents HTN (hypertension) - Cont. home meds - Monitor GERD (gastroesophageal reflux disease) - PPI Hypomagnesemia - replete Hypokalemia - potassium level 3.2 add 2- meq of potassium to IVF solution - Labs are stable on 08/03, K+ 3.6. anemia - d/t chronic disease - this diagnosis has been explored during prior hospitalizations and d/w Hematology - anemia felt to be d/t underlying disease processes - observe The exam, history, and the medical decision-making described in the above note were completed with the assistance of the mid-level provider. I reviewed and agree with the findings presented. I attest that I had a [id number] encounter with the patient on the same day, and personally performed and documented my assessment and findings in the medical record. s/p stent exchange in biliary duct. sweep of stone debris. resume tf and ivf. monitor cr. (1) Idiopathic pancreatitis Qualifiers:
--- NOTE | 2018-08-03 15:09 | P.PNGI ---
Subjective Interval history: Patient laying in bed resting with eyes closed. Awakens easily and denies nausea or vomiting. She reports tolerating diet well and says abdominal tenderness has lessened. <Nani Yuen - Last Filed: 08/03/18 15:16> Physical Exam Vital signs: Vital Signs 08/02/18 16:00 08/02/18 20:00 08/03/18 00:00 Temperature 98.0 F 98.1 F Pulse Rate 113 H 109 H 88 Respiratory Rate 16 17 Blood Pressure 137/64 118/56 L Pulse Oximetry 96 99 08/03/18 00:23 08/03/18 04:00 08/03/18 07:30 Temperature 97.8 F 97.8 F Pulse Rate 91 H 76 87 Respiratory Rate 18 18 16 Blood Pressure 121/56 L 148/71 H 139/66 Pulse Oximetry 100 96 100 08/03/18 09:00 08/03/18 11:20 Temperature 97.7 F Pulse Rate 82 87 Respiratory Rate 16 Blood Pressure 142/66 H Pulse Oximetry 99 Intake & Output 08/02/18 08/03/18 08/03/18 18:59 06:59 18:59 Intake Total 525 / 525 3140 / 3140 1000 / 1000 Output Total 300 / 300 1000 / 1000 Balance 225 / 225 3140 / 3140 0 / 0 Intake: IV 2500 / 2500 1000 / 1000 Potassium Chlor 20 mEq/NACL 0. 1000 / 1000 1000 / 1000 45% Inj 1,000 ML @ 100 mls/hr IV.CONT .Q10H [facility] Rx#:[id number] NS Inj 500 ML @ 30 mls/hr IV. 500 / 500 SIG .Q10H [facility] Rx#:[id number] Oral 300 / 300 240 / 240 Tube Irrigant 400 / 400 Anesthesia Amount 225 / 225 Output: Urine 300 / 300 1000 / 1000 Other: Post Void Residual 1,000 # Voids 2 Date of Last Bowel Movement 07/30/18 07/30/18 # Bowel Movements 2 1 - Constitutional no acute distress - Routine HEENT Exam Head: Present: normocephalic - Routine Neck Exam Present: supple - Routine Respiratory Exam Present: CTA bilaterally. Absent: accessory muscle use, respiratory distress - Routine Cardiovascular Exam Present: RRR - Routine Abdominal Exam Present: soft, normoactive bowel sounds, tenderness. Absent: guarding, firm Comments: reports mild generalized abdominal tenderness on palpation. States much improved since admission - Routine Extremities Exam Present: pulses intact. Absent: edema - Routine Skin Exam Present: dry, warm - Routine Neurological Exam Present: alert, oriented X3 - Detailed Neurological Exam: Coma Scale Eye Opening: Spontaneous Verbal Response: Oriented Motor Response: Obey commands [place] Coma Scale Total: 15 - Routine Psychiatric Exam Present: normal affect, cooperative <Nani Yuen - Last Filed: 08/03/18 15:16> Vital signs: Vital Signs 08/03/18 00:00 08/03/18 00:23 08/03/18 04:00 Temperature 97.8 F 97.8 F Pulse Rate 88 91 H 76 Respiratory Rate 18 18 Blood Pressure 121/56 L 148/71 H Pulse Oximetry 100 96 08/03/18 07:30 08/03/18 09:00 08/03/18 11:20 Temperature 97.7 F Pulse Rate 87 82 87 Respiratory Rate 16 16 Blood Pressure 139/66 142/66 H Pulse Oximetry 100 99 08/03/18 15:32 08/03/18 20:00 Temperature 98.5 F 98.5 F Pulse Rate 85 107 H Respiratory Rate 17 20 Blood Pressure 122/70 153/71 H Pulse Oximetry 100 98 Intake & Output 08/03/18 08/03/18 08/04/18 06:59 18:59 06:59 Intake Total 3140 / 3140 1000 / 1000 Output Total 1000 / 1000 Balance 3140 / 3140 0 / 0 Intake: IV 2500 / 2500 1000 / 1000 Potassium Chlor 20 mEq/NACL 0. 1000 / 1000 1000 / 1000 45% Inj 1,000 ML @ 100 mls/hr IV.CONT .Q10H [facility] Rx#:[id number] NS Inj 500 ML @ 30 mls/hr IV. 500 / 500 SIG .Q10H [facility] Rx#:[id number] Oral 240 / 240 Tube Irrigant 400 / 400 Output: Urine 1000 / 1000 Other: Post Void Residual 1,000 Date of Last Bowel Movement 07/30/18 # Bowel Movements 1 <Gregg Ortega - Last Filed: 08/03/18 22:04> Results - Labs CBC & Chem 7: 08/03/18 06:24 08/03/18 06:24 Laboratory Results - last 24 hr 08/03/18 08/03/18 06:24 06:24 WBC 31.4 H RBC 2.97 L Hgb 8.3 L Hct 26.3 L MCV 88.2 MCH 27.9 MCHC 31.6 L RDW 17.8 H Plt Count 338 MPV 7.6 Prelim Diff (Auto) Slide review pending Neut % (Auto) 92.1 H Lymph % (Auto) 3.7 L [place] % (Auto) 3.9 Eos % (Auto) 0.1 Baso % (Auto) 0.2 Neut # (Auto) 28.9 H Lymph # (Auto) 1.2 [place] # (Auto) 1.2 H Eos # (Auto) 0.0 Baso # (Auto) 0.1 WBC Differential Manual diff final Seg Neuts % (Manual) 91 H Band Neuts % (Manual) 4 Lymphocytes % (Manual) 2 L Monocytes % (Manual) 3 Abs Neuts (Manual) 29.8 H Nucleated RBCs/100 WBC 1 H Differential Comment . Platelet Estimate Normal Platelet Morphology Normal Sodium 135 L Potassium 3.6 Chloride 103 Carbon Dioxide 16.6 L Anion Gap 15 BUN 27 H Creatinine 2.97 H Estimated GFR 18 L Random Glucose 75 Calcium 7.8 L Total Bilirubin 0.3 AST 9 L ALT 9 L Alkaline Phosphatase 98 Total Protein 6.0 L Albumin 1.7 L Lipase 730 H <Nani Yuen - Last Filed: 08/03/18 15:16> - Labs CBC & Chem 7: 08/03/18 06:24 08/03/18 06:24 Laboratory Results - last 24 hr 08/03/18 08/03/18 06:24 06:24 WBC 31.4 H RBC 2.97 L Hgb 8.3 L Hct 26.3 L MCV 88.2 MCH 27.9 MCHC 31.6 L RDW 17.8 H Plt Count 338 MPV 7.6 Prelim Diff (Auto) Slide review pending Neut % (Auto) 92.1 H Lymph % (Auto) 3.7 L [place] % (Auto) 3.9 Eos % (Auto) 0.1 Baso % (Auto) 0.2 Neut # (Auto) 28.9 H Lymph # (Auto) 1.2 [place] # (Auto) 1.2 H Eos # (Auto) 0.0 Baso # (Auto) 0.1 WBC Differential Manual diff final Seg Neuts % (Manual) 91 H Band Neuts % (Manual) 4 Lymphocytes % (Manual) 2 L Monocytes % (Manual) 3 Abs Neuts (Manual) 29.8 H Nucleated RBCs/100 WBC 1 H Differential Comment . Platelet Estimate Normal Platelet Morphology Normal Sodium 135 L Potassium 3.6 Chloride 103 Carbon Dioxide 16.6 L Anion Gap 15 BUN 27 H Creatinine 2.97 H Estimated GFR 18 L Random Glucose 75 Calcium 7.8 L Total Bilirubin 0.3 AST 9 L ALT 9 L Alkaline Phosphatase 98 Total Protein 6.0 L Albumin 1.7 L Lipase 730 H <Gregg Oretga E - Last Filed: 08/03/18 22:04> Assessment and Plan - Plan Assessment: - Acute on chronic pancreatitis/ Idiopathic pancreatitis- lipase is trending down. 2673 ---> 215 LFTs wnl well known to our service- follows Dr. Ortega outpatient Pt has had multiple stents placed- Last ERCP done June 30 --> Plastic stent was removed, metallic stent seemed to be migrated inside the duct, cholangiogram revealed the duct to be full of debris and stones, S/P sweeping with balloon multiple stones and significant amount of sludge and thick material removed, duct was irrigated, and a new 10 [place] 9cm stent was placed inside the already placed metallic stent. Abdomen/Pelvis CT 07/28/18 1. Postoperative changes of biliary stent with biliary drainage catheter passing through the stent. Gastrojejunostomy tube again noted. 2. Mild stranding of fat around the pancreas could indicate a mild pancreatitis. 3. 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 - Anemia- no bleeding reported, likely anemia of chronic dz - leukocytosis- today is 24.6 - Gastroparesis- Pt with GJ tube- continuous TF through J tube at night, G tube stays clamped. 08/01/18 Patient laying supine in bed this am and reports decreasing abdominal pain. Rates same as 6-7/10 upon exam. Denies nausea or vomiting. States last BM 2 days ago. Pt denies any noted bleeding. Pt with GJ tube in place. Most recent labs reveal 07/31/18 wbc 24.6, hgb 8.1 hct 25.0. Lipase 215 and trending down from admission on 07/28/18 2673. Will consider ERCP for tomorrow. Will advance diet today to full liquids and NPO after midnight for procedure. 08/03/18 patient laying in bed with eyes closed. Denies nausea or vomiting and reports decreased abdominal tenderness. TF in progress. Status post ERCP yesterday which revealed Choledocholithiasis. Findings per report--> The ampulla was noted to have a plastic stent protruding through it this was removed using a snare the scope was then repositioned and I was able to easily cannulate the common bile duct which had multiple filling defects and so using a 12 mm balloon I was able to clean out the bile duct multiple particles and sludge was removed once cleaned I was able to clearly see the ingrowth into the old metal stent and so a 10 [place] 40 mm stent was placed within the first metal stent and it protruded about a centimeter into the duodenum with good drainage noted the intrahepatics appeared to be unremarkable. AM labs Hgb 8.3 Hct 26.3 stable. TB 0.3 AST 9 ALT 9. Lipase 730. Plan: Cardiac diet as tolerated IV fluids Pain medications as ordered per attending MD Continue PPI Continue to monitor labs Supportive care Further recommendations to follow This patient was seen by myself and Dr. Ortega and this noted has been written on his behalf. <Nani Yuen - Last Filed: 08/03/18 15:16> - Plan Patient seen and examined Agree with above Continue with current supportive care Monitor labs Patient appears to be improving slowly but surely her abdominal pain is under much better control At this point the biggest issues to try and get the patient up in about she is somewhat deconditioned may benefit from physical therapy or rehab <Gregg Ortega - Last Filed: 08/03/18 22:04>
[2018-08-03] MEDS: Sod Chloride 0.9% Inj 1,000 ML IV.CONT SCH (16:41)
[2018-08-04] MEDS: Sod Chloride 0.9% Inj 1,000 ML IV.CONT SCH ×2 (06:02→18:41)
[2018-08-04 07:53] LABS: Alanine Aminotransferase 9 U/L (10-53); Albumin 1.6 g/dL (3.4-5.0); Anion Gap 12 meq/L (5-15); Aspartate Aminotransferase 9 U/L (15-37); Blood Urea Nitrogen 24 mg/dL (7-18); Calcium 7.7 mg/dL (8.5-10.1); Carbon Dioxide 19.7 meq/L (21.0-32.0); Chloride 107 meq/L (98-107); Glomerular Filtration Rate 18 mL/min (>89); Glucose,Random 128 mg/dL (74-106); Lipase 509 U/L (73-393); Potassium 3.3 meq/L (3.5-5.1); Sodium 139 meq/L (136-145)
[2018-08-04 07:56] LABS: Alkaline Phosphatase 107 U/L (45-117); Total Protein 5.8 g/dL (6.4-8.2)
[2018-08-04 07:57] LABS: Baso # (Auto) 0.1 th/mm3 (0.0-0.2); Baso % (Auto) 0.5 % (0.0-2.0); Eos # (Auto) 0.1 th/mm3 (0.0-0.4); Eos % (Auto) 0.3 % (0.0-4.0); Hematocrit 26.1 % (35.0-46.0); Hemoglobin 8.5 gm/dL (11.6-15.3); Lymph # (Auto) 1.3 th/mm3 (1.0-4.8); Lymph % (Auto) 4.5 % (9.0-44.0); Mean Corpuscular HGB Conc 32.5 % (32.0-36.0); Mean Corpuscular Hemoglobin 28.2 pg (27.0-34.0); Mean Corpuscular Volume 86.9 fL (80.0-100.0); Mean Platelet Volume 7.5 fL (7.0-11.0); Mono % (Auto) 3.4 % (0.0-8.0); Neut # (Auto) 26.7 th/mm3 (1.8-7.7); Neut % (Auto) 91.3 % (16.0-70.0); Platelet Count 314 th/mm3 (150-450); Red Blood Count 3.01 mil/mm3 (4.00-5.30); Red Cell Distribution Width 17.8 % (11.6-17.2); White Blood Count 29.2 th/mm3 (4.0-11.0)
[2018-08-04] MEDS: Sucralfate 1 GM Tablet PO SCH ×4 (08:22→19:21)
[2018-08-04] MEDS: Metoprolol Tartrate 25 MG Tablet PO SCH ×2 (08:22→20:05)
[2018-08-04] MEDS: amLODIPine 5 MG Tablet PO SCH (08:23)
[2018-08-04 08:52] LABS: Eosinophils 1 % (0-4); Lymphocytes 3 % (9-44); Monocytes 1 % (0-8)
[2018-08-04 08:53] LABS: Platelet Estimate Normal (Normal); Platelet Morphology Normal (Normal)
--- NOTE | 2018-08-04 11:09 | P.PNGI ---
Subjective Interval history: Patient awake laying in bed supine this morning. Nursing staff preparing patient for physical therapy session. Patient advised on importance of increasing activity. She reports mild nausea this am and states her abdominal pain is minimal at present. <Nani Yuen - Last Filed: 08/04/18 11:18> Physical Exam Vital signs: Vital Signs 08/03/18 11:20 08/03/18 15:32 08/03/18 20:00 Temperature 97.7 F 98.5 F 98.5 F Pulse Rate 87 85 107 H Respiratory Rate 16 17 20 Blood Pressure 142/66 H 122/70 153/71 H Pulse Oximetry 99 100 98 08/04/18 00:00 08/04/18 04:00 08/04/18 08:00 Temperature 98.3 F 98.2 F 98.2 F Pulse Rate 92 H 95 H 95 H Respiratory Rate 18 18 18 Blood Pressure 143/74 H 142/70 H 149/75 H Pulse Oximetry 96 97 99 Intake & Output 08/03/18 08/04/18 08/04/18 18:59 06:59 18:59 Intake Total 1000 / 1000 1000 / 1000 Output Total 1000 / 1000 Balance 0 / 0 1000 / 1000 Weight 63.9 kg Intake: IV 1000 / 1000 1000 / 1000 Potassium Chlor 20 mEq/NACL 0. 1000 / 1000 45% Inj 1,000 ML @ 100 mls/hr IV.CONT .Q10H [facility] Rx#:[id number] NS Inj 1,000 ML @ 75 mls/hr IV. 1000 / 1000 CONT .[id number] [facility] Rx#:[id number] Output: Urine 1000 / 1000 Other: # Voids 4 Date of Last Bowel Movement 07/30/18 08/01/18 # Bowel Movements 2 - Constitutional no acute distress - Routine HEENT Exam Head: Present: normocephalic - Routine Respiratory Exam Present: CTA bilaterally. Absent: accessory muscle use, respiratory distress - Routine Cardiovascular Exam Present: RRR. Absent: irregular rhythm - Routine Abdominal Exam Present: soft, normoactive bowel sounds, tenderness. Absent: distended, guarding, firm Comments: mild tenderness with palpation on exam - Routine Extremities Exam Present: pulses intact. Absent: cyanosis, clubbing, edema - Routine Skin Exam Present: dry, warm - Routine Neurological Exam Present: alert, oriented X3 - Detailed Neurological Exam: Coma Scale Eye Opening: Spontaneous Verbal Response: Oriented Motor Response: Obey commands [place] Coma Scale Total: 15 - Routine Psychiatric Exam Present: normal affect, cooperative <Nani Yuen - Last Filed: 08/04/18 11:18> Vital signs: Vital Signs 08/03/18 20:00 08/04/18 00:00 08/04/18 04:00 Temperature 98.5 F 98.3 F 98.2 F Pulse Rate 107 H 92 H 95 H Respiratory Rate 20 18 18 Blood Pressure 153/71 H 143/74 H 142/70 H Pulse Oximetry 98 96 97 08/04/18 08:00 08/04/18 12:00 Temperature 98.2 F 98.1 F Pulse Rate 95 H 109 H Respiratory Rate 18 18 Blood Pressure 149/75 H 156/79 H Pulse Oximetry 99 100 Intake & Output 08/03/18 08/04/18 08/04/18 18:59 06:59 18:59 Intake Total 1999 / 1999 1000 / 1000 Output Total 1000 / 1000 Balance 1000 / 1000 1000 / 1000 Weight 63.9 kg Intake: IV 1999 1000 / 1000 Potassium Chlor 20 mEq/NACL 0. 1000 / 1000 45% Inj 1,000 ML @ 100 mls/hr IV.CONT .Q10H [facility] Rx#:[id number] NS + KCl 20 mEq Inj 1,000 ML @ 1000 / 1000 100 mls/hr IV.CONT .Q10H [facility] Rx #:[id number] NS Inj 1,000 ML @ 75 mls/hr IV. 1000 / 1000 CONT .[id number] [facility] Rx#:[id number] Output: Urine 1000 / 1000 Other: # Voids 4 Date of Last Bowel Movement 07/30/18 08/01/18 08/03/18 # Bowel Movements 2 <Gregg Ortega E - Last Filed: 08/04/18 17:11> Results - Labs CBC & Chem 7: 08/04/18 06:50 08/04/18 06:50 Laboratory Results - last 24 hr 08/04/18 08/04/18 06:50 06:50 WBC 29.2 H RBC 3.01 L Hgb 8.5 L Hct 26.1 L MCV 86.9 MCH 28.2 MCHC 32.5 RDW 17.8 H Plt Count 314 MPV 7.5 Prelim Diff (Auto) Slide review pending Neut % (Auto) 91.3 H Lymph % (Auto) 4.[address] [place] % (Auto) 3.4 Eos % (Auto) 0.3 Baso % (Auto) 0.5 Neut # (Auto) 26.7 H Lymph # (Auto) 1.3 [place] # (Auto) 1.0 H Eos # (Auto) 0.1 Baso # (Auto) 0.1 WBC Differential Manual diff final Seg Neuts % (Manual) 85 H Band Neuts % (Manual) 10 H Lymphocytes % (Manual) 3 L Monocytes % (Manual) 1 Eosinophils % (Manual) 1 Abs Neuts (Manual) 27.7 H Differential Comment . Platelet Estimate Normal Platelet Morphology Normal Sodium 139 Potassium 3.3 L Chloride 107 Carbon Dioxide 19.7 L Anion Gap 12 BUN 24 H Creatinine 2.98 H Estimated GFR 18 L Random Glucose 128 H Calcium 7.7 L Total Bilirubin 0.2 AST 9 L ALT 9 L Alkaline Phosphatase 107 Total Protein 5.8 L Albumin 1.6 L Lipase 509 H <Nani Yuen - Last Filed: 08/04/18 11:18> - Labs CBC & Chem 7: 08/04/18 06:50 08/04/18 06:50 Laboratory Results - last 24 hr 08/04/18 08/04/18 06:50 06:50 WBC 29.2 H RBC 3.01 L Hgb 8.5 L Hct 26.1 L MCV 86.9 MCH 28.2 MCHC 32.5 RDW 17.8 H Plt Count 314 MPV 7.5 Prelim Diff (Auto) Slide review pending Neut % (Auto) 91.3 H Lymph % (Auto) 4.[address] [place] % (Auto) 3.4 Eos % (Auto) 0.3 Baso % (Auto) 0.5 Neut # (Auto) 26.7 H Lymph # (Auto) 1.3 [place] # (Auto) 1.0 H Eos # (Auto) 0.1 Baso # (Auto) 0.1 WBC Differential Manual diff final Seg Neuts % (Manual) 85 H Band Neuts % (Manual) 10 H Lymphocytes % (Manual) 3 L Monocytes % (Manual) 1 Eosinophils % (Manual) 1 Abs Neuts (Manual) 27.7 H Differential Comment . Platelet Estimate Normal Platelet Morphology Normal Sodium 139 Potassium 3.3 L Chloride 107 Carbon Dioxide 19.7 L Anion Gap 12 BUN 24 H Creatinine 2.98 H Estimated GFR 18 L Random Glucose 128 H Calcium 7.7 L Total Bilirubin 0.2 AST 9 L ALT 9 L Alkaline Phosphatase 107 Total Protein 5.8 L Albumin 1.6 L Lipase 509 H <Gregg Ortega - Last Filed: 08/04/18 17:11> Assessment and Plan - Plan 08/03/18 patient laying in bed with eyes closed. Denies nausea or vomiting and reports decreased abdominal tenderness. TF in progress. Status post ERCP yesterday which revealed Choledocholithiasis. Findings per report--> The ampulla was noted to have a plastic stent protruding through it this was removed using a snare the scope was then repositioned and I was able to easily cannulate the common bile duct which had multiple filling defects and so using a 12 mm balloon I was able to clean out the bile duct multiple particles and sludge was removed once cleaned I was able to clearly see the ingrowth into the old metal stent and so a 10 [place] 40 mm stent was placed within the first metal stent and it protruded about a centimeter into the duodenum with good drainage noted the intrahepatics appeared to be unremarkable. AM labs Hgb 8.3 Hct 26.3 stable. TB 0.3 AST 9 ALT 9. Lipase 730. 08/04/18- Patient in bed supine. Physical therapy at bedside. Patient reports mild abd tenderness on exam and some nausea. Relief stated since being medicated for same. AM labs reviewed Hgb 8.5 Hct 26.1 Total Bili 0.2 AST 9 ALT 9. Lipase trending downwards from 730 yesterday to 509 this am . Plan: -Cardiac diet as tolerated -IV fluids -Continue PPI -Continue to monitor labs -Continue physical therapy to increase activity and endurance -Pain meds and antiemetics as per attending -Supportive care -Further recommendations to follow This patient has been seen by myself and Dr. Ortega and this note is written on his behalf - Attending Attestation Dr. Ortega <Nani Yuen - Last Filed: 08/04/18 11:18> - Plan Patient seen and examined Agree with above Continue with current supportive care Monitor labs <Gregg Ortega - Last Filed: 08/04/18 17:11>
[2018-08-04] MEDS: Lipase/Protease/Amylase 12/38/60 DR Capsule PO SCH ×3 (11:45→18:43)
--- NOTE | 2018-08-04 14:42 | P.PNIM ---
Subjective Interval history: Pt complains of abd pain today She is not eating much of any solid foods and wants to go back to full liquids with her TF She reports that she mainly eats full liquid diet at home and not much of any solid foods. Physical Exam Vital signs: Vital Signs 08/03/18 15:32 08/03/18 20:00 08/04/18 00:00 Temperature 98.5 F 98.5 F 98.3 F Pulse Rate 85 107 H 92 H Respiratory Rate 17 20 18 Blood Pressure 122/70 153/71 H 143/74 H Pulse Oximetry 100 98 96 08/04/18 04:00 08/04/18 08:00 08/04/18 12:00 Temperature 98.2 F 98.2 F 98.1 F Pulse Rate 95 H 95 H 109 H Respiratory Rate 18 18 18 Blood Pressure 142/70 H 149/75 H 156/79 H Pulse Oximetry 97 99 100 Intake & Output 08/03/18 08/04/18 08/04/18 18:59 06:59 18:59 Intake Total 1000 / 1000 1000 / 1000 Output Total 1000 / 1000 Balance 0 / 0 1000 / 1000 Weight 63.9 kg Intake: IV 1000 / 1000 1000 / 1000 Potassium Chlor 20 mEq/NACL 0. 1000 / 1000 45% Inj 1,000 ML @ 100 mls/hr IV.CONT .Q10H H[facility] Rx#:[id number] NS Inj 1,000 ML @ 75 mls/hr IV. 1000 / 1000 CONT .[id number] HITESH Rx#:[id number] Output: Urine 1000 / 1000 Other: # Voids 4 Date of Last Bowel Movement 07/30/18 08/01/18 08/03/18 # Bowel Movements 2 Narrative: GENERAL: This is a 82 year old female, well-developed patient, in no apparent distress. CARDIO: Regular RESP: CTA bilaterally. ABD: +BS, soft, mild tender worse RUQ, nondistended. GJ tube in place EXT: No edema. Results - Labs CBC & Chem 7: 08/04/18 06:50 08/04/18 06:50 Laboratory Results - last 24 hr 08/04/18 08/04/18 06:50 06:50 WBC 29.2 H RBC 3.01 L Hgb 8.5 L Hct 26.1 L MCV 86.9 MCH 28.2 MCHC 32.5 RDW 17.8 H Plt Count 314 MPV 7.5 Prelim Diff (Auto) Slide review pending Neut % (Auto) 91.3 H Lymph % (Auto) 4.5 L Dane % (Auto) 3.4 Eos % (Auto) 0.3 Baso % (Auto) 0.5 Neut # (Auto) 26.7 H Lymph # (Auto) 1.3 Dane # (Auto) 1.0 H Eos # (Auto) 0.1 Baso # (Auto) 0.1 WBC Differential Manual diff final Seg Neuts % (Manual) 85 H Band Neuts % (Manual) 10 H Lymphocytes % (Manual) 3 L Monocytes % (Manual) 1 Eosinophils % (Manual) 1 Abs Neuts (Manual) 27.7 H Differential Comment . Platelet Estimate Normal Platelet Morphology Normal Sodium 139 Potassium 3.3 L Chloride 107 Carbon Dioxide 19.7 L Anion Gap 12 BUN 24 H Creatinine 2.98 H Estimated GFR 18 L Random Glucose 128 H Calcium 7.7 L Total Bilirubin 0.2 AST 9 L ALT 9 L Alkaline Phosphatase 107 Total Protein 5.8 L Albumin 1.6 L Lipase 509 H Assessment and Plan - Assessment (1) Idiopathic pancreatitis Code(s): K85.00 - Idiopathic acute pancreatitis without necrosis or infection Status: Acute Plan: Idiopathic pancreatitis - Patient is an 82 y/o AAF with recurrent idiopathic pancreatitis. She has been hospitalized numerous times for issues with pain control related to recurrent pancreatitis. Her last admission was from 07/13/18 to 07/26/18 due to WAYNE, idiopathic pancreatitis and had her GJ tube exchanged 07/25/18. - Patient again presented to the ER last night due to worsening abd pain associated with nausea but no vomiting. Patient reports that she always had mild epigastric pain, but yesterday evening it again became more severe and is associated with nausea but not vomiting. Denies fever or chills, chest pain, cough, difficulty flushing J tube, or diarrhea. - On admission WBC 21.6, BUN 44, creatinine 2.60 and lipase 2673. - CT abd/pelvis was done and revealed: 1. Postoperative changes of biliary stent with biliary drainage catheter passing through the stent. Gastrojejunostomy tube again noted. 2. Mild stranding of fat around the pancreas could indicate a mild pancreatitis. 3. 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 - WBC 21.6 (07/28), 24.9 (07/29), 22.6 (07/30), 24 (07/31), 22.1 (08/02), 31.4 (08/03) , 29.2 (08/04) - lipase 2673 (07/28), 2471 (07/29), 758 (07/30), 215 (08/10), 155 (08/02), 730 (08/03 ), 509 (08/04) - IVF for hydration - PO and IV pain medication as needed - Appreciate input from GI. - Pt underwent repeat ERCP with stent exchange, 08/02/18 (ERCP and stent exchange cancelled on 08/01 as patient's daughter needed to talk with Dr. Ortega prior to signing consent.). According to the procedure report, the common bile duct had multiple filling defects which were able to be cleaned out and once cleaned he was able to clearly see the ingrowth into the old metal stent and so a 10 Tajik 40 mm stent was placed within the first metal stent and it protruded about a centimeter into the duodenum with good drainage noted. The intrahepatics appeared to be unremarkable - Pt wanting full liquid diet - Cont. TF Suplena with goal rate 40mls/hr - SCDs for DVT prophylaxis Chronic kidney failure - Pt with baseline stage 3 CKD, pt follows with Dr. Melara - avoid nephrotoxic agents HTN (hypertension) - Cont. home meds - Monitor GERD (gastroesophageal reflux disease) - PPI Hypomagnesemia - replete Hypokalemia - potassium level 3.3 on 08/04, replacement ordered anemia - d/t chronic disease - this diagnosis has been explored during prior hospitalizations and d/w Hematology - anemia felt to be d/t underlying disease processes - observe (1) Idiopathic pancreatitis Qualifiers:
--- NOTE | 2018-08-04 17:22 | P.DIET ---
Nutritional Evaluation Type of nutrition evaluation: follow-up Nutrition screening: Weight Loss > 10 lbs Subjective Subjective Comments: Pt request for full liquid diet; follows full liquid diet at home Objective - Diagnosis Recurrent Idiopathic Pancreatitis - Objective % IBW: 104 (TJP=795#) Body Weight Used for Calculations: Actual (61.4kg) Energy Needs - Lower Range (kCal/kg): 25 Energy Needs - Upper Range (kCal/kg): 30 Lower Limit kCal/kg (kCals): 1,535 Upper Limit kCal/kg (kCals): 1,842 Lower Limit Protein Factor (Grams per Kg): 0.6 Upper Limit Protein Factor (Grams per Kg): 1.0 Lower Protein Needs (Protein): 37 Upper Protein Needs (Protein): 61 Dietitian Reviewed in Medical Record: Current diet, Curent medications, Intake & Output, Labs, Medical history, Tube feeding Diet Order: TF'ing Suplena @ goal rate 40ml/hr and Full Liquid Tray Objective Comments: PMH Includes: Anxiety, CKD-3, GERD, HTN, Pancreatitis; G-J tube inplace 08/02/18 ERCP w/Stent removal, balloon extraction and metal stent placement; revealed choledolithiasis Labs: BUN 24, Creatinine 2.98, estGFR 18, Glucose 128, Lipase 509 Meds Include: Creaon, Norvasc, Cymbalta, Metoprolol, Zofran, Protonix, Free Water Flush 200ml Q 6-hr LBM 08/03 Feeding - Current Tube Feeding Tube Feeding Product: Suplena Tube Feeding Rate: 40 Tube Feeding Route: J/G tube Current kCals Provided by Tube Feedin,728 Current Protein Provided by Tube Feeding (gPRO): 43 Current Free H2O Provided (m/l): 708 Assessment Assessment: Pt continues at nutritional risk r/t diagnosis, wt loss and need for TF'ing. Current TF'ing w/Suplena @ goal rate 40ml/hr provides for pt's assessed needs. Pt prefers full liquids diet w/small amounts of po intake. Free Water Flushes per MD as ordered. Labs reviewed. Wt changes noted. Dietitian following. Recommendations: 1. TF'ing w/Suplena @ goal rate 40ml/hr provides for pt's assessed needs 2. Full liquids diet per pt request 3. Free Water Flushes per MD as ordered 4. Dietitian following Dietitian to Monitor: Lab values, Renal labs, Intake & Output, Diet tolerance, Tube feeding tolerance, Weight change, Medical course
[2018-08-05] MEDS: Sod Chloride 0.9% Inj 1,000 ML IV.CONT SCH ×2 (06:22→20:24)
[2018-08-05 06:32] LABS: Baso # (Auto) 0.1 th/mm3 (0.0-0.2); Baso % (Auto) 0.4 % (0.0-2.0); Eos # (Auto) 0.2 th/mm3 (0.0-0.4); Eos % (Auto) 0.8 % (0.0-4.0); Hematocrit 24.7 % (35.0-46.0); Hemoglobin 7.8 gm/dL (11.6-15.3); Lymph # (Auto) 1.9 th/mm3 (1.0-4.8); Lymph % (Auto) 8.3 % (9.0-44.0); Mean Corpuscular HGB Conc 31.6 % (32.0-36.0); Mean Corpuscular Hemoglobin 28.1 pg (27.0-34.0); Mean Corpuscular Volume 88.8 fL (80.0-100.0); Mean Platelet Volume 7.3 fL (7.0-11.0); Mono # (Auto) 1.3 th/mm3 (0.0-0.9); Mono % (Auto) 5.5 % (0.0-8.0); Platelet Count 309 th/mm3 (150-450); Red Blood Count 2.78 mil/mm3 (4.00-5.30); Red Cell Distribution Width 18.7 % (11.6-17.2); White Blood Count 23.5 th/mm3 (4.0-11.0)
[2018-08-05 06:52] LABS: Calcium 7.5 mg/dL (8.5-10.1); Carbon Dioxide 17.8 meq/L (21.0-32.0); Potassium 3.6 meq/L (3.5-5.1)
[2018-08-05 07:47] LABS: Eosinophils 2 % (0-4); Lymphocytes 7 % (9-44); Monocytes 5 % (0-8); Myelocytes 4 % (0-0); Platelet Estimate Normal (Normal); Platelet Morphology Normal (Normal)
[2018-08-05 07:48] LABS: Ovalocytes 1+
[2018-08-05] MEDS: Lipase/Protease/Amylase 12/38/60 DR Capsule PO SCH ×3 (08:59→17:47)
[2018-08-05] MEDS: amLODIPine 5 MG Tablet PO SCH (08:59)
[2018-08-05] MEDS: Sucralfate 1 GM Tablet PO SCH ×3 (08:59→17:47)
[2018-08-05] MEDS: Metoprolol Tartrate 25 MG Tablet PO SCH ×2 (08:59→20:24)
--- NOTE | 2018-08-05 09:46 | P.PNIM ---
Subjective Interval history: Pt complains of headache this morning and abd discomfort but it is improving She is tolerating full liquids and her TF Physical Exam Vital signs: Vital Signs 08/04/18 12:00 08/04/18 16:00 08/04/18 20:00 Temperature 98.1 F 97.8 F 97.7 F Pulse Rate 109 H 91 H 110 H Respiratory Rate 18 18 22 Blood Pressure 156/79 H 169/81 H 125/65 Pulse Oximetry 100 100 99 08/05/18 00:00 08/05/18 04:00 08/05/18 08:00 Temperature 97.8 F 97.9 F 97.7 F Pulse Rate 86 89 94 H Respiratory Rate 20 20 18 Blood Pressure 132/76 127/77 145/73 H Pulse Oximetry 100 100 100 Intake & Output 08/04/18 08/05/18 08/05/18 18:59 06:59 18:59 Intake Total 120 / 120 Balance 120 / 120 Weight 64.7 kg Intake: Oral 120 / 120 Other: # Voids 4 3 Date of Last Bowel Movement 08/03/18 08/03/18 08/04/18 # Bowel Movements 3 Narrative: GENERAL: This is a 82 year old female, well-developed patient, in no apparent distress. CARDIO: Regular RESP: CTA bilaterally. ABD: +BS, soft, mild tender worse RUQ, nondistended. GJ tube in place EXT: No edema. Results - Labs CBC & Chem 7: 08/05/18 06:05 08/05/18 06:05 Laboratory Results - last 24 hr 08/05/18 08/05/18 06:05 06:05 WBC 23.5 H RBC 2.78 L Hgb 7.8 L Hct 24.7 L MCV 88.8 MCH 28.1 MCHC 31.6 L RDW 18.7 H Plt Count 309 MPV 7.3 Prelim Diff (Auto) Slide review pending Neut % (Auto) 85.0 H Lymph % (Auto) 8.3 L Graham % (Auto) 5.5 Eos % (Auto) 0.8 Baso % (Auto) 0.4 Neut # (Auto) 20.0 H Lymph # (Auto) 1.9 Graham # (Auto) 1.3 H Eos # (Auto) 0.2 Baso # (Auto) 0.1 WBC Differential Manual diff final Seg Neuts % (Manual) 77 H Band Neuts % (Manual) 5 Lymphocytes % (Manual) 7 L Monocytes % (Manual) 5 Eosinophils % (Manual) 2 Myelocytes % (Man) 4 H Abs Neuts (Manual) 20.2 H Differential Comment . Platelet Estimate Normal Platelet Morphology Normal Ovalocytes 1+ H Sodium 143 Potassium 3.6 Chloride 112 H Carbon Dioxide 17.8 L Anion Gap 13 BUN 25 H Creatinine 2.87 H Estimated GFR 19 L Random Glucose 118 H Calcium 7.5 L Lipase 423 H Assessment and Plan - Assessment (1) Idiopathic pancreatitis Code(s): K85.00 - Idiopathic acute pancreatitis without necrosis or infection Status: Acute Plan: Idiopathic pancreatitis - Patient is an 82 y/o AAF with recurrent idiopathic pancreatitis. She has been hospitalized numerous times for issues with pain control related to recurrent pancreatitis. Her last admission was from 07/13/18 to 07/26/18 due to WAYNE, idiopathic pancreatitis and had her GJ tube exchanged 07/25/18. - Patient again presented to the ER last night due to worsening abd pain associated with nausea but no vomiting. Patient reports that she always had mild epigastric pain, but yesterday evening it again became more severe and is associated with nausea but not vomiting. Denies fever or chills, chest pain, cough, difficulty flushing J tube, or diarrhea. - On admission WBC 21.6, BUN 44, creatinine 2.60 and lipase 2673. - CT abd/pelvis was done and revealed: 1. Postoperative changes of biliary stent with biliary drainage catheter passing through the stent. Gastrojejunostomy tube again noted. 2. Mild stranding of fat around the pancreas could indicate a mild pancreatitis. 3. 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 - WBC 21.6 (07/28), 24.9 (07/29), 22.6 (07/30), 24 (07/31), 22.1 (08/02), 31.4 (08/03) , 29.2 (08/04), 23,5 (08/05) - lipase 2673 (07/28), 2471 (07/29), 758 (07/30), 215 (08/10), 155 (08/02), 730 (08/03 ), 509 (08/04), 423 (08/05) - PO and IV pain medication as needed - Appreciate input from GI. - Pt underwent repeat ERCP with stent exchange, 08/02/18 (ERCP and stent exchange cancelled on 08/01 as patient's daughter needed to talk with Dr. Ortega prior to signing consent.). According to the procedure report, the common bile duct had multiple filling defects which were able to be cleaned out and once cleaned he was able to clearly see the ingrowth into the old metal stent and so a 10 Yoruba 40 mm stent was placed within the first metal stent and it protruded about a centimeter into the duodenum with good drainage noted. The intrahepatics appeared to be unremarkable - Pt wanting full liquid diet - Cont. TF Suplena with goal rate 40mls/hr - SCDs for DVT prophylaxis - Anticipate d/c home with HHC in next 1-2 days Chronic kidney failure - Pt with baseline stage 3 CKD, pt follows with Dr. Melara - avoid nephrotoxic agents HTN (hypertension) - Cont. home meds - Monitor GERD (gastroesophageal reflux disease) - PPI Hypomagnesemia - replete Hypokalemia - potassium level 3.3 on 08/04, replacement ordered anemia - d/t chronic disease - this diagnosis has been explored during prior hospitalizations and d/w Hematology - anemia felt to be d/t underlying disease processes - observe The exam, history, and the medical decision-making described in the above note were completed with the assistance of the mid-level provider. I reviewed and agree with the findings presented. I attest that I had a [id number] encounter with the patient on the same day, and personally performed and documented my assessment and findings in the medical record. (1) Idiopathic pancreatitis Qualifiers:
--- NOTE | 2018-08-05 11:13 | P.PNGI ---
Subjective Interval history: Patient is resting in the bed states still has some mild abdominal pain but much improved over the past 48 hours. Patient is tolerating small amounts of grits, soups and hydration. Current hemoglobin 7.8 lipase decreased to 423. No nausea no vomiting <Jordana Sebastian - Last Filed: 08/05/18 11:08> Physical Exam Vital signs: Vital Signs 08/04/18 12:00 08/04/18 16:00 08/04/18 20:00 Temperature 98.1 F 97.8 F 97.7 F Pulse Rate 109 H 91 H 110 H Respiratory Rate 18 18 22 Blood Pressure 156/79 H 169/81 H 125/65 Pulse Oximetry 100 100 99 08/05/18 00:00 08/05/18 04:00 08/05/18 08:00 Temperature 97.8 F 97.9 F 97.7 F Pulse Rate 86 89 94 H Respiratory Rate 20 20 18 Blood Pressure 132/76 127/77 145/73 H Pulse Oximetry 100 100 100 Intake & Output 08/04/18 08/05/18 08/05/18 18:59 06:59 18:59 Intake Total 120 / 120 Balance 120 / 120 Weight 64.7 kg Intake: Oral 120 / 120 Other: # Voids 4 3 Date of Last Bowel Movement 08/03/18 08/03/18 08/04/18 # Bowel Movements 3 - Constitutional no acute distress, chronically ill appearing - Routine HEENT Exam Head: Present: normocephalic ENT: Present: mucous membranes moist - Routine Respiratory Exam Present: accessory muscle use (No obvious shortness of breath at rest) - Routine Cardiovascular Exam Present: S1, S2 - Routine Abdominal Exam Present: soft (No obvious distention, mild upper abdomen and right upper quadrant discomfort, but much improved) <Jordana Sebastian - Last Filed: 08/05/18 11:08> Vital signs: Vital Signs 08/04/18 20:00 08/05/18 00:00 08/05/18 04:00 Temperature 97.7 F 97.8 F 97.9 F Pulse Rate 110 H 86 89 Respiratory Rate 22 20 20 Blood Pressure 125/65 132/76 127/77 Pulse Oximetry 99 100 100 08/05/18 08:00 08/05/18 12:00 08/05/18 16:00 Temperature 97.7 F 98 F 97.8 F Pulse Rate 94 H 81 93 H Respiratory Rate 18 20 20 Blood Pressure 145/73 H 138/71 140/72 Pulse Oximetry 100 100 98 08/05/18 17:46 Temperature Pulse Rate Respiratory Rate 16 Blood Pressure Pulse Oximetry Intake & Output 08/05/18 08/05/18 08/06/18 06:59 18:59 06:59 Intake Total 1000 / 1000 560 / 560 Output Total 600 / 600 Balance 1000 / 1000 -40 / -40 Weight 64.7 kg Intake: IV 1000 / 1000 NS + KCl 20 mEq Inj 1,000 ML @ 1000 / 1000 100 mls/hr IV.CONT .Q10H [facility] Rx #:[id number] Oral 560 / 560 Output: Urine 600 / 600 Other: # Voids 3 Date of Last Bowel Movement 08/03/18 08/04/18 <Gregg Ortega E - Last Filed: 08/05/18 19:43> Results - Labs CBC & Chem 7: 08/05/18 06:05 08/05/18 06:05 Laboratory Results - last 24 hr 08/05/18 08/05/18 06:05 06:05 WBC 23.5 H RBC 2.78 L Hgb 7.8 L Hct 24.7 L MCV 88.8 MCH 28.1 MCHC 31.6 L RDW 18.7 H Plt Count 309 MPV 7.3 Prelim Diff (Auto) Slide review pending Neut % (Auto) 85.0 H Lymph % (Auto) 8.3 L Steele % (Auto) 5.5 Eos % (Auto) 0.8 Baso % (Auto) 0.4 Neut # (Auto) 20.0 H Lymph # (Auto) 1.9 Steele # (Auto) 1.3 H Eos # (Auto) 0.2 Baso # (Auto) 0.1 WBC Differential Manual diff final Seg Neuts % (Manual) 77 H Band Neuts % (Manual) 5 Lymphocytes % (Manual) 7 L Monocytes % (Manual) 5 Eosinophils % (Manual) 2 Myelocytes % (Man) 4 H Abs Neuts (Manual) 20.2 H Differential Comment . Platelet Estimate Normal Platelet Morphology Normal Ovalocytes 1+ H Sodium 143 Potassium 3.6 Chloride 112 H Carbon Dioxide 17.8 L Anion Gap 13 BUN 25 H Creatinine 2.87 H Estimated GFR 19 L Random Glucose 118 H Calcium 7.5 L Lipase 423 H <Jordana Sebastian M - Last Filed: 08/05/18 11:08> - Labs CBC & Chem 7: 08/05/18 06:05 08/05/18 06:05 Laboratory Results - last 24 hr 08/05/18 08/05/18 06:05 06:05 WBC 23.5 H RBC 2.78 L Hgb 7.8 L Hct 24.7 L MCV 88.8 MCH 28.1 MCHC 31.6 L RDW 18.7 H Plt Count 309 MPV 7.3 Prelim Diff (Auto) Slide review pending Neut % (Auto) 85.0 H Lymph % (Auto) 8.3 L Steele % (Auto) 5.5 Eos % (Auto) 0.8 Baso % (Auto) 0.4 Neut # (Auto) 20.0 H Lymph # (Auto) 1.9 Steele # (Auto) 1.3 H Eos # (Auto) 0.2 Baso # (Auto) 0.1 WBC Differential Manual diff final Seg Neuts % (Manual) 77 H Band Neuts % (Manual) 5 Lymphocytes % (Manual) 7 L Monocytes % (Manual) 5 Eosinophils % (Manual) 2 Myelocytes % (Man) 4 H Abs Neuts (Manual) 20.2 H Differential Comment . Platelet Estimate Normal Platelet Morphology Normal Ovalocytes 1+ H Sodium 143 Potassium 3.6 Chloride 112 H Carbon Dioxide 17.8 L Anion Gap 13 BUN 25 H Creatinine 2.87 H Estimated GFR 19 L Random Glucose 118 H Calcium 7.5 L Lipase 423 H <Gregg Ortega - Last Filed: 08/05/18 19:43> Assessment and Plan - Plan 08/03/18 patient laying in bed with eyes closed. Denies nausea or vomiting and reports decreased abdominal tenderness. TF in progress. Status post ERCP yesterday which revealed Choledocholithiasis. Findings per report--> The ampulla was noted to have a plastic stent protruding through it this was removed using a snare the scope was then repositioned and I was able to easily cannulate the common bile duct which had multiple filling defects and so using a 12 mm balloon I was able to clean out the bile duct multiple particles and sludge was removed once cleaned I was able to clearly see the ingrowth into the old metal stent and so a 10 Emirati 40 mm stent was placed within the first metal stent and it protruded about a centimeter into the duodenum with good drainage noted the intrahepatics appeared to be unremarkable. AM labs Hgb 8.3 Hct 26.3 stable. TB 0.3 AST 9 ALT 9. Lipase 730. 08/04/18- Patient in bed supine. Physical therapy at bedside. Patient reports mild abd tenderness on exam and some nausea. Relief stated since being medicated for same. AM labs reviewed Hgb 8.5 Hct 26.1 Total Bili 0.2 AST 9 ALT 9. Lipase trending downwards from 730 yesterday to 509 this am . 08/05/2018 patient is resting in the bed, still having some mild chronic abdominal pain but states it is much improved over the past 48 hours. Encourage patient to be up out of a chair and to eat small amounts of food and liquid as tolerated including maintain her hydration. Hemoglobin 7.8 no obvious bleeding, lipase decreased to 423. Continue physical therapy for her strengthening. Not much more to add at this point from GI except for supportive care, follow-up in the office or as needed for now. Plan: Diet, Cardiac diet as tolerated Encourage p.o. fluids PPI monitor labs, and any obvious acute changes in her hemoglobin physical therapy Supportive care Patient was seen per myself and Dr. Shah, note was written on his behalf This patient has been seen by myself and Dr. Coats Patient seen and examined Agree with above Continue with current supportive care Monitor labs <Jordana Sebastian - Last Filed: 08/05/18 11:08> - Plan Patient seen and examined Agree with above continue with current supportive care Monitor labs At this point there is really not much to add except that patient will need adequate pain management and continue with nutrition through her J-tube Not much to add from a GI perspective we will sign off <Gregg Ortega E - Last Filed: 08/05/18 19:43>
--- NOTE | 2018-08-05 13:54 | P.DIET ---
Nutritional Evaluation Type of nutrition evaluation: follow-up Nutrition consult regarding: Tube Feeding Nutrition screening: Weight Loss > 10 lbs Subjective Oral Diet Tolerance Assessment Indicates: Poor intake due to pain Subjective Comments: Pt request for full liquid diet. Spoke w/Pt's grand daughter Anita Albert, by phone, who reports pt was receiving Nepro TF'ing @ 45ml/hr at home. Pt 's grand daughter reports pt was having diarrhea while receiving Nepro. TF'ing runs continuously at home and Anita says she "may turn it off" for 1-2 hours, " every once in awhile". Anita says the pt takes "bites" of food at home and does not care for oral nutritional supplements. Pt visited w/LISY Griffin and pt has a soft-formed stool today. TF'ing running @ 40ml/hr. [employer] Nadia Sanchez request for recommended TF'ing formula for pt when discharged. Objective - Diagnosis Recurrent Idiopathic Pancreatitis - Objective % IBW: 104 (KBT=568#) Body Weight Used for Calculations: Actual (61.4kg) Energy Needs - Lower Range (kCal/kg): 25 Energy Needs - Upper Range (kCal/kg): 30 Lower Limit kCal/kg (kCals): 1,535 Upper Limit kCal/kg (kCals): 1,842 Lower Limit Protein Factor (Grams per Kg): 0.6 Upper Limit Protein Factor (Grams per Kg): 1.0 Lower Protein Needs (Protein): 37 Upper Protein Needs (Protein): 61 Dietitian Reviewed in Medical Record: Current diet, Curent medications, Intake & Output, Labs, Medical history, Tube feeding Diet Order: TF'ing Su[place] @ goal rate 40ml/hr and Full Liquid Tray Objective Comments: PMH Includes: Anxiety, CKD-3, GERD, HTN, Pancreatitis; G-J tube inplace 08/02/18 ERCP w/Stent removal, balloon extraction and metal stent placement; revealed choledolithiasis Labs: BUN 25, Creatinine 2.87, estGFR 19, Glucose 118, Lipase 423 Meds Include: Creon, Norvasc, Cymbalta, Metoprolol, Zofran, Protonix, Free Water Flush 200ml Q 6-hr +1BM Feeding - Current Tube Feeding Tube Feeding Product: Su[place]ena Tube Feeding Rate: 40 Tube Feeding Route: J/G tube Current kCals Provided by Tube Feedin,728 Current Protein Provided by Tube Feeding (gPRO): 43 Current Free H2O Provided (m/l): 708 Assessment Assessment: Pt continues at nutritional risk r/t diagnosis, wt loss and need for TF'ing. Current TF'ing w/Suplena @ goal rate 40ml/hr provides for pt's assessed needs. Rec to continue TF'ing w/Suplena when pt is discharged r/t Suplena is appropriate TF'ing formulary for CKD-3. Diet for pleasure w/full liquids and semi-soft solids. Free Water Flushes per MD as ordered. Labs reviewed. Wt changes noted. Dietitian following. Recommendations: 1. Current TF'ing w/Suplena @ goal rate 40ml/hr provides for pt's assessed needs 2. Rec to continue TF'ing w/Suplena when pt is discharged r/t Suplena is appropriate TF'ing formulary for CKD-3 3. Diet for pleasure w/full liquids and semi-soft solids 4. Free Water Flushes per MD as ordered 5. Dietitian following Dietitian to Monitor: Lab values, Renal labs, Intake & Output, Diet tolerance, Tube feeding tolerance, Weight change, PO Intake, Medical course
[2018-08-05] MEDS: HYDROmorphone PF Inj 2 MG/ML Vial IV.PUSH SCH (23:02)
[2018-08-06] MEDS: HYDROmorphone PF Inj 2 MG/ML Vial IV.PUSH PRN (06:56)
[2018-08-06] MEDS: Sucralfate 1 GM Tablet PO SCH ×3 (08:09→17:54)
[2018-08-06] MEDS: Metoprolol Tartrate 25 MG Tablet PO SCH ×2 (08:10→20:03)
[2018-08-06] MEDS: amLODIPine 5 MG Tablet PO SCH (08:10)
[2018-08-06] MEDS: Lipase/Protease/Amylase 12/38/60 DR Capsule PO SCH ×3 (09:59→17:54)
[2018-08-06] MEDS: Sod Chloride 0.9% Inj 1,000 ML IV.CONT SCH (09:59)
--- NOTE | 2018-08-06 10:01 | P.PNIM ---
Subjective Interval history: Pt with some abd pain this morning She reports she vomited once this morning Pt tolerated liquid diet last night She reports that she is moving her bowels without difficulty Physical Exam Vital signs: Vital Signs 08/05/18 12:00 08/05/18 16:00 08/05/18 17:46 Temperature 98 F 97.8 F Pulse Rate 81 93 H Respiratory Rate 20 20 16 Blood Pressure 138/71 140/72 Pulse Oximetry 100 98 08/05/18 20:00 08/05/18 20:14 08/05/18 22:08 Temperature 98.2 F Pulse Rate 107 H 107 H Respiratory Rate 18 18 Blood Pressure 159/78 H Pulse Oximetry 96 08/06/18 00:00 08/06/18 00:10 08/06/18 00:59 Temperature 97.8 F Pulse Rate 74 97 H Respiratory Rate 16 18 Blood Pressure 145/74 H Pulse Oximetry 97 08/06/18 04:41 08/06/18 04:59 08/06/18 06:10 Temperature 99.4 F Pulse Rate 96 H 95 H Respiratory Rate 17 18 Blood Pressure 173/77 H Pulse Oximetry 97 08/06/18 07:13 08/06/18 08:00 Temperature 98.1 F Pulse Rate 103 H Respiratory Rate 18 17 Blood Pressure 151/76 H Pulse Oximetry 98 Intake & Output 08/05/18 08/06/18 08/06/18 18:59 06:59 18:59 Intake Total 560 / 560 1240 / 1240 Output Total 600 / 600 Balance -40 / -40 1240 / 1240 Weight 64.4 kg Intake: IV 1000 / 1000 NS + KCl 20 mEq Inj 1,000 ML @ 1000 / 1000 100 mls/hr IV.CONT .Q10H [facility] Rx #:[id number] Oral 560 / 560 240 / 240 Output: Urine 600 / 600 Other: # Voids 4 Date of Last Bowel Movement 08/04/18 08/05/18 Narrative: GENERAL: This is a 82 year old female, well-developed patient, in no apparent distress. CARDIO: Regular RESP: CTA bilaterally. ABD: +BS, soft, mild tender worse RUQ, nondistended. GJ tube in place EXT: No edema. Results - Labs CBC & Chem 7: 08/05/18 06:05 08/05/18 06:05 Assessment and Plan - Assessment (1) Idiopathic pancreatitis Code(s): K85.00 - Idiopathic acute pancreatitis without necrosis or infection Status: Acute Plan: Idiopathic pancreatitis - Patient is an 82 y/o AAF with recurrent idiopathic pancreatitis. She has been hospitalized numerous times for issues with pain control related to recurrent pancreatitis. Her last admission was from 07/13/18 to 07/26/18 due to WAYNE, idiopathic pancreatitis and had her GJ tube exchanged 07/25/18. - Patient again presented to the ER last night due to worsening abd pain associated with nausea but no vomiting. Patient reports that she always had mild epigastric pain, but yesterday evening it again became more severe and is associated with nausea but not vomiting. Denies fever or chills, chest pain, cough, difficulty flushing J tube, or diarrhea. - On admission WBC 21.6, BUN 44, creatinine 2.60 and lipase 2673. - CT abd/pelvis was done and revealed: 1. Postoperative changes of biliary stent with biliary drainage catheter passing through the stent. Gastrojejunostomy tube again noted. 2. Mild stranding of fat around the pancreas could indicate a mild pancreatitis. 3. 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 - WBC 21.6 (07/28), 24.9 (07/29), 22.6 (07/30), 24 (07/31), 22.1 (08/02), 31.4 (08/03) , 29.2 (08/04), 23,5 (08/05) - lipase 2673 (07/28), 2471 (07/29), 758 (07/30), 215 (08/10), 155 (08/02), 730 (08/03 ), 509 (08/04), 423 (08/05) - PO pain medication as needed - Appreciate input from GI. - Pt underwent repeat ERCP with stent exchange, 08/02/18 (ERCP and stent exchange cancelled on 08/01 as patient's daughter needed to talk with Dr. Ortega prior to signing consent.). According to the procedure report, the common bile duct had multiple filling defects which were able to be cleaned out and once cleaned he was able to clearly see the ingrowth into the old metal stent and so a 10 [place] 40 mm stent was placed within the first metal stent and it protruded about a centimeter into the duodenum with good drainage noted. The intrahepatics appeared to be unremarkable - Pt tolerating full liquid diet - Cont. TF Suplena with goal rate 40mls/hr, orders placed for this for discharge as pt was previously on Jevity but complained of diarrhea. - SCDs for DVT prophylaxis - Anticipate d/c home with [facility] likely tomorrow Chronic kidney failure - Pt with baseline stage 3 CKD, pt follows with Dr. Melara - avoid nephrotoxic agents HTN (hypertension) - Cont. home meds - Monitor GERD (gastroesophageal reflux disease) - PPI Hypomagnesemia - replete Hypokalemia - potassium level 3.3 on 08/04, replacement ordered anemia - d/t chronic disease, stable. - this diagnosis has been explored during prior hospitalizations and d/w Hematology - anemia felt to be d/t underlying disease processes - observe The exam, history, and the medical decision-making described in the above note were completed with the assistance of the mid-level provider. I reviewed and agree with the findings presented. I attest that I had a [id number] encounter with the patient on the same day, and personally performed and documented my assessment and findings in the medical record. (1) Idiopathic pancreatitis Qualifiers:
[2018-08-07] MEDS: Sod Chloride 0.9% Inj 1,000 ML IV.CONT SCH ×2 (00:22→15:03)
[2018-08-07 06:09] LABS: Calcium 7.6 mg/dL (8.5-10.1); Carbon Dioxide 20.9 meq/L (21.0-32.0); Potassium 4.5 meq/L (3.5-5.1)
[2018-08-07] MEDS: Metoprolol Tartrate 25 MG Tablet PO SCH ×2 (09:03→22:42)
[2018-08-07] MEDS: Sucralfate 1 GM Tablet PO SCH ×3 (09:03→17:50)
[2018-08-07] MEDS: amLODIPine 5 MG Tablet PO SCH (09:03)
[2018-08-07] MEDS: Lipase/Protease/Amylase 12/38/60 DR Capsule PO SCH ×3 (09:03→17:50)
--- NOTE | 2018-08-07 09:18 | P.PNIM ---
Subjective Interval history: Pt reports that her abd pain is relatively unchanged. She is taking the [place] every 4 hours Pt is tolerating full liquids Moving her bowels without difficulty Physical Exam Vital signs: Vital Signs 08/06/18 12:00 08/06/18 16:00 08/06/18 20:00 Temperature 97.9 F 98.3 F 98.4 F Pulse Rate 94 H 107 H 106 H Respiratory Rate 18 19 20 Blood Pressure 155/80 H 165/91 H 145/69 H Pulse Oximetry 100 98 99 08/06/18 21:53 08/07/18 00:00 08/07/18 04:00 Temperature 99.9 F H 98.8 F Pulse Rate 107 H 100 H Respiratory Rate 22 20 20 Blood Pressure 135/76 143/73 H Pulse Oximetry 99 99 08/07/18 06:44 08/07/18 08:00 Temperature 98.5 F Pulse Rate 115 H Respiratory Rate 17 18 Blood Pressure 158/80 H Pulse Oximetry 96 Intake & Output 08/06/18 08/07/18 08/07/18 18:59 06:59 18:59 Intake Total 1000 / 1000 1999 / 1999 Balance 1000 / 1000 1999 / 1999 Intake: IV 1000 / 1000 1000 / 1000 NS + KCl 20 mEq Inj 1,000 ML @ 1000 / 1000 1000 / 1000 100 mls/hr IV.CONT .Q10H [facility] Rx #:[id number] Tube Feeding 600 / 600 Water Bolus Amount 400 / 400 Other: # Voids 3 Date of Last Bowel Movement 08/06/18 # Bowel Movements 1 Narrative: GENERAL: This is a 82 year old female, well-developed patient, in no apparent distress. CARDIO: Regular RESP: CTA bilaterally. ABD: +BS, soft, mild tender worse RUQ, nondistended. GJ tube in place EXT: No edema. Results - Labs CBC & Chem 7: 08/05/18 06:05 08/07/18 03:52 Laboratory Results - last 24 hr 08/07/18 03:52 Sodium 145 Potassium 4.5 D Chloride 112 H Carbon Dioxide 20.9 L Anion Gap 12 BUN 24 H Creatinine 2.73 H Estimated GFR 20 L Random Glucose 141 H Calcium 7.6 L Lipase 708 H - Imaging Abdomen/Pelvis CT 07/28/18 01:18 CONCLUSION: 1. Postoperative changes of biliary stent with biliary drainage catheter passing through the stent. Gastrojejunostomy tube again noted. 2. Mild stranding of fat around the pancreas could indicate a mild pancreatitis. 3. 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 GI Procedure 08/02/18 00:00 CONCLUSION: A biliary stent has been placed. It is in good position. There is good filling of the hepatic ducts. Assessment and Plan - Assessment (1) Idiopathic pancreatitis Code(s): K85.00 - Idiopathic acute pancreatitis without necrosis or infection Status: Acute Plan: Idiopathic pancreatitis - Patient is an 82 y/o AAF with recurrent idiopathic pancreatitis. She has been hospitalized numerous times for issues with pain control related to recurrent pancreatitis. Her last admission was from 07/13/18 to 07/26/18 due to WAYNE, idiopathic pancreatitis and had her GJ tube exchanged 07/25/18. - Patient again presented to the ER last night due to worsening abd pain associated with nausea but no vomiting. Patient reports that she always had mild epigastric pain, but yesterday evening it again became more severe and is associated with nausea but not vomiting. Denies fever or chills, chest pain, cough, difficulty flushing J tube, or diarrhea. - On admission WBC 21.6, BUN 44, creatinine 2.60 and lipase 2673. - CT abd/pelvis was done and revealed: 1. Postoperative changes of biliary stent with biliary drainage catheter passing through the stent. Gastrojejunostomy tube again noted. 2. Mild stranding of fat around the pancreas could indicate a mild pancreatitis. 3. 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 - WBC 21.6 (07/28), 24.9 (07/29), 22.6 (07/30), 24 (07/31), 22.1 (08/02), 31.4 (08/03) , 29.2 (08/04), 23.5 (08/05) - lipase 2673 (07/28), 2471 (07/29), 758 (07/30), 215 (08/10), 155 (08/02), 730 (08/03 ), 509 (08/04), 423 (08/05), 708 (08/07) - PO pain medication as needed - Appreciate input from GI. - Pt underwent repeat ERCP with stent exchange, 08/02/18 (ERCP and stent exchange cancelled on 08/01 as patient's daughter needed to talk with Dr. Ortega prior to signing consent.). According to the procedure report, the common bile duct had multiple filling defects which were able to be cleaned out and once cleaned he was able to clearly see the ingrowth into the old metal stent and so a 10 [place] 40 mm stent was placed within the first metal stent and it protruded about a centimeter into the duodenum with good drainage noted. The intrahepatics appeared to be unremarkable - Pt tolerating full liquid diet - Cont. TF Suplena with goal rate 40mls/hr, orders placed for this for discharge as pt was previously on Jevity but complained of diarrhea. - Pts lipase started to trend slightly up on 08/07 - Repeat labs in AM - SCDs for DVT prophylaxis - Anticipate d/c home with [facility] likely tomorrow. Unable to discharge today due to pain control issues. Chronic kidney failure - Pt with baseline stage 3 CKD, pt follows with Dr. Melara - avoid nephrotoxic agents HTN (hypertension) - Cont. home meds - Monitor GERD (gastroesophageal reflux disease) - PPI Hypomagnesemia - replete Hypokalemia - Improved with replacement anemia - d/t chronic disease, stable. - this diagnosis has been explored during prior hospitalizations and d/w Hematology - anemia felt to be d/t underlying disease processes - observe The exam, history, and the medical decision-making described in the above note were completed with the assistance of the mid-level provider. I reviewed and agree with the findings presented. I attest that I had a [id number] encounter with the patient on the same day, and personally performed and documented my assessment and findings in the medical record. pt still painful today. hopefully better by tomorrow. she will have chronic pancreatitis pain. s/p stent exchange. (1) Idiopathic pancreatitis Qualifiers:
[2018-08-08] MEDS: Sod Chloride 0.9% Inj 1,000 ML IV.CONT SCH ×2 (05:08→14:49)
[2018-08-08 06:12] LABS: Baso # (Auto) 0.1 th/mm3 (0.0-0.2); Baso % (Auto) 0.4 % (0.0-2.0); Eos # (Auto) 0.1 th/mm3 (0.0-0.4); Eos % (Auto) 0.4 % (0.0-4.0); Hematocrit 24.6 % (35.0-46.0); Hemoglobin 7.9 gm/dL (11.6-15.3); Lymph # (Auto) 1.6 th/mm3 (1.0-4.8); Lymph % (Auto) 4.5 % (9.0-44.0); Mean Corpuscular HGB Conc 32.3 % (32.0-36.0); Mean Corpuscular Hemoglobin 28.1 pg (27.0-34.0); Mean Corpuscular Volume 86.9 fL (80.0-100.0); Mean Platelet Volume 7.7 fL (7.0-11.0); Mono # (Auto) 1.6 th/mm3 (0.0-0.9); Mono % (Auto) 4.5 % (0.0-8.0); Neut # (Auto) 31.5 th/mm3 (1.8-7.7); Neut % (Auto) 90.2 % (16.0-70.0); Platelet Count 339 th/mm3 (150-450); Red Blood Count 2.83 mil/mm3 (4.00-5.30); Red Cell Distribution Width 19.1 % (11.6-17.2); White Blood Count 34.9 th/mm3 (4.0-11.0)
[2018-08-08 06:33] LABS: Calcium 8.1 mg/dL (8.5-10.1); Carbon Dioxide 20.6 meq/L (21.0-32.0)
[2018-08-08] MEDS: Lipase/Protease/Amylase 12/38/60 DR Capsule PO SCH ×3 (08:53→17:46)
[2018-08-08] MEDS: amLODIPine 5 MG Tablet PO SCH (08:54)
[2018-08-08] MEDS: Sucralfate 1 GM Tablet PO SCH ×3 (08:54→17:21)
[2018-08-08] MEDS: Metoprolol Tartrate 25 MG Tablet PO SCH ×2 (08:54→20:01)
[2018-08-08 09:43] LABS: Lymphocytes 5 % (9-44); Metamyelocytes 1 % (0-1); Monocytes 7 % (0-8); Myelocytes 3 % (0-0)
[2018-08-08 09:44] LABS: Platelet Estimate Normal (Normal); Platelet Morphology Normal (Normal)
--- NOTE | 2018-08-08 10:06 | P.PNIM ---
Subjective Interval history: Pts nurse contacted me yesterday evening about the pts GJ tube malfunctioning. She reported that when flushing the J-tube that the water was coming up through the pts insertion site in the skin. Pt complains of continued pain today She is NPO and TF were held yesterday evening. IR to re-evaluate GJ tube today Physical Exam Vital signs: Vital Signs 08/07/18 11:55 08/07/18 20:00 08/08/18 00:00 Temperature 98.5 F 98.7 F 99.0 F Pulse Rate 98 H 116 H 95 H Respiratory Rate 17 20 18 Blood Pressure 153/73 H 118/63 141/66 H Pulse Oximetry 96 98 97 08/08/18 00:23 08/08/18 04:00 08/08/18 08:00 Temperature 98.5 F 98.7 F Pulse Rate 109 H 115 H Respiratory Rate 22 20 20 Blood Pressure 164/75 H 150/80 H Pulse Oximetry 100 97 Intake & Output 08/07/18 08/08/18 08/08/18 18:59 06:59 18:59 Intake Total 1000 / 1000 1000 / 1000 Balance 1000 / 1000 1000 / 1000 Weight 61.6 kg Intake: IV 1000 / 1000 1000 / 1000 NS + KCl 20 mEq Inj 1,000 ML @ 1000 / 1000 1000 / 1000 100 mls/hr IV.CONT .Q10H [facility] Rx #:[id number] Other: # Voids 3 Narrative: GENERAL: This is a 82 year old female, well-developed patient, in no apparent distress. CARDIO: Regular RESP: CTA bilaterally. ABD: +BS, soft, mild diffuse tenderness worse RUQ, nondistended. GJ tube in place, no drainage or puss noted at the insertion site EXT: No edema. Results - Labs CBC & Chem 7: 08/10/18 03:30 08/10/18 03:30 Laboratory Results - last 24 hr 08/08/18 08/08/18 03:42 03:42 WBC 34.9 H RBC 2.83 L Hgb 7.9 L Hct 24.6 L MCV 86.9 MCH 28.1 MCHC 32.3 RDW 19.1 H Plt Count 339 MPV 7.7 Prelim Diff (Auto) Slide review pending Neut % (Auto) 90.2 H Lymph % (Auto) 4.5 L [place] % (Auto) 4.5 Eos % (Auto) 0.4 Baso % (Auto) 0.4 Neut # (Auto) 31.5 H Lymph # (Auto) 1.6 [place] # (Auto) 1.6 H Eos # (Auto) 0.1 Baso # (Auto) 0.1 WBC Differential Manual diff final Seg Neuts % (Manual) 75 H Band Neuts % (Manual) 9 H Lymphocytes % (Manual) 5 L Monocytes % (Manual) 7 Metamyelocytes % (Man) 1 Myelocytes % (Man) 3 H Abs Neuts (Manual) 30.7 H Differential Comment . Platelet Estimate Normal Platelet Morphology Normal Sodium 146 H Potassium 5.0 Chloride 116 H Carbon Dioxide 20.6 L Anion Gap 9 BUN 26 H Creatinine 2.81 H Estimated GFR 20 L Random Glucose 86 Calcium 8.1 L Lipase 768 H - Imaging Abdomen/Pelvis CT 07/28/18 01:18 CONCLUSION: 1. Postoperative changes of biliary stent with biliary drainage catheter passing through the stent. Gastrojejunostomy tube again noted. 2. Mild stranding of fat around the pancreas could indicate a mild pancreatitis. 3. 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 GI Procedure 08/02/18 00:00 CONCLUSION: A biliary stent has been placed. It is in good position. There is good filling of the hepatic ducts. Assessment and Plan - Assessment (1) Idiopathic pancreatitis Code(s): K85.00 - Idiopathic acute pancreatitis without necrosis or infection Status: Acute Plan: Idiopathic pancreatitis - Patient is an 82 y/o AAF with recurrent idiopathic pancreatitis. She has been hospitalized numerous times for issues with pain control related to recurrent pancreatitis. Her last admission was from 07/13/18 to 07/26/18 due to WAYNE, idiopathic pancreatitis and had her GJ tube exchanged 07/25/18. - Patient again presented to the ER last night due to worsening abd pain associated with nausea but no vomiting. Patient reports that she always had mild epigastric pain, but yesterday evening it again became more severe and is associated with nausea but not vomiting. Denies fever or chills, chest pain, cough, difficulty flushing J tube, or diarrhea. - On admission WBC 21.6, BUN 44, creatinine 2.60 and lipase 2673. - CT abd/pelvis was done and revealed: 1. Postoperative changes of biliary stent with biliary drainage catheter passing through the stent. Gastrojejunostomy tube again noted. 2. Mild stranding of fat around the pancreas could indicate a mild pancreatitis. 3. 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 - PO pain medication as needed - Appreciate input from GI. - Pt underwent repeat ERCP with stent exchange, 08/02/18 (ERCP and stent exchange cancelled on 08/01 as patient's daughter needed to talk with Dr. Ortega prior to signing consent.). According to the procedure report, the common bile duct had multiple filling defects which were able to be cleaned out and once cleaned he was able to clearly see the ingrowth into the old metal stent and so a 10 [place] 40 mm stent was placed within the first metal stent and it protruded about a centimeter into the duodenum with good drainage noted. The intrahepatics appeared to be unremarkable - Dietary recommended TF with Suplena with goal rate 40mls/hr, orders placed for this for discharge as pt was previously on Jevity but complained of diarrhea. - Pts lipase started to trend slightly up on 08/07 and 08/08 - WBC 21.6 (07/28), 24.9 (07/29), 22.6 (07/30), 24 (07/31), 22.1 (08/02), 31.4 (08/03) , 29.2 (08/04), 23.5 (08/05), 34.9 (08/08) - lipase 2673 (07/28), 2471 (07/29), 758 (07/30), 215 (08/10), 155 (08/02), 730 (08/03 ), 509 (08/04), 423 (08/05), 708 (08/07), 768 (08/08) - Repeat labs in AM - On 08/07 the pts nurse reported that when flushing the J-tube that the water was coming up through the pts insertion site in the skin. - Pt was made NPO and TF were held yesterday evening. - IR to re-evaluate GJ tube today - SCDs for DVT prophylaxis Chronic kidney failure - Pt with baseline stage 3 CKD, pt follows with Dr. Melara - avoid nephrotoxic agents HTN (hypertension) - Cont. home meds - Monitor GERD (gastroesophageal reflux disease) - PPI Hypomagnesemia - replete Hypokalemia - Improved with replacement anemia - d/t chronic disease, stable. - this diagnosis has been explored during prior hospitalizations and d/w Hematology - anemia felt to be d/t underlying disease processes - observe - Attending Attestation Patient examined. Assessment and plan formulated with Guadalupe Monson PA-C. I agree with the above. (1) Idiopathic pancreatitis Qualifiers:
[2018-08-08] MEDS ORDERED: Iohexol 350 MG/ML 50 ML Vial (for Rad Diag) G-TUBE ONE (14:54)
--- NOTE | 2018-08-08 15:31 | P.RAD ---
Post Procedure Progress Note - Pre Procedure Diagnosis (1) Abdominal pain (2) Gastroparesis - Post Procedure Diagnosis (1) Gastroparesis (2) Feeding tube dysfunction - Procedure Information Procedure Date: 08/08/18 Supervising Radiologist: Eliud Lala MD - Plan of Activity Patient to Unit: Nursing Unit Patient Condition: Good See PACS Report for procedural detail/treatment. Feeding Tube Feeding Tube: Gastro/Jejunostomy Procedure: Evaluation [place] [facility] Tube Size: 22 Findings: G and J ports both patent. No findings of leakage from tube or through dermatotomy. Patient does appear to have some stasis of material in gastric lumen probably secondary to gastroparesis. Placed G-port to gravity drainage. Discussed with patients nurse on floor but she had only received report of tube leaking and did not witness it herself. Discussed the decompression of the gastric lumen with gravity drainage. Tube o/w OK so no change.
--- NOTE | 2018-08-08 15:55 | IR ---
EXAM DATE: 08/08/2018 3:04 PM EDT AGE/SEX: 82 years / Female INDICATIONS: Patient with a history of idiopathic pancreatitis. CLINICAL DATA: This is the patient's subsequent encounter. Patient reports that signs and symptoms h ave been present for 1 day and indicates a pain score of 2/10. MEDICAL/SURGICAL HISTORY: Chronic renal failure. Gastroesophageal reflux disease. Hypertensio n. Idiopathic pancreatitis HLD Cholecystectomy ERCP tube placement Biliary stent Total knee replacem ent. COMPARISON: No prior exams available for comparison. FLUORO TIME (min): 0.7 IMAGE SERIES: DEVICE(S): . . PROCEDURE : 1. Fluoroscopically guided tube injection. The risks, benefits and alternatives to the procedure were explained and verbal and written consent w as obtained. The site was prepped in sterile fashion. Full sterile technique was used, including ca p, mask, sterile gloves and gown and a large sterile sheet. Hand hygiene and 2% chlorhexidine and/or betadine/alcohol prep was utilized per protocol for cutaneous antisepsis. With fluoroscopic guidance the previously placed tube was injected demonstrating both the G and J por ts to be widely patent. I could not reproduce the symptoms described on the floor with leakage around through the access dermatotomy. However, I did notice that there was a large amount of bilious mater ial flowing back through the G port probably representing some gastroparesis. It is possible that the stomach is over distended, resulting in some leakage around the tube itself. I discussed my findings with the patient's floor nurse. However, she did not witness leaking herself and only received a report from the prior shift. As the tube was otherwise functional and in excellen t position, the catheter was not exchanged. I did place the G port to gravity drainage and an attempt to decompress the gastric lumen. CONCLUSION: 1. Uncomplicated tube injection as above. The tube was not exchanged. Electronically signed by: Eliud Lala MD 08/08/2018 3:54 PM EDT
[2018-08-09] MEDS: Sod Chloride 0.9% Inj 1,000 ML IV.CONT SCH ×2 (06:03→17:06)
[2018-08-09 07:29] LABS: Red Blood Count 2.83 mil/mm3 (4.00-5.30)
[2018-08-09 07:30] LABS: Baso # (Auto) 0.1 th/mm3 (0.0-0.2); Baso % (Auto) 0.2 % (0.0-2.0); Eos # (Auto) 0.2 th/mm3 (0.0-0.4); Eos % (Auto) 0.5 % (0.0-4.0); Hematocrit 24.6 % (35.0-46.0); Lymph # (Auto) 1.4 th/mm3 (1.0-4.8); Lymph % (Auto) 4.3 % (9.0-44.0); Mean Corpuscular HGB Conc 32.7 % (32.0-36.0); Mean Corpuscular Hemoglobin 28.4 pg (27.0-34.0); Mean Corpuscular Volume 86.9 fL (80.0-100.0); Mean Platelet Volume 7.5 fL (7.0-11.0); Mono # (Auto) 1.5 th/mm3 (0.0-0.9); Mono % (Auto) 4.5 % (0.0-8.0); Neut # (Auto) 29.9 th/mm3 (1.8-7.7); Neut % (Auto) 90.5 % (16.0-70.0); Platelet Count 402 th/mm3 (150-450); Red Cell Distribution Width 19.7 % (11.6-17.2)
[2018-08-09 07:56] LABS: Alanine Aminotransferase 8 U/L (10-53); Albumin 1.8 g/dL (3.4-5.0); Anion Gap 12 meq/L (5-15); Aspartate Aminotransferase 8 U/L (15-37); Blood Urea Nitrogen 24 mg/dL (7-18); Carbon Dioxide 21.6 meq/L (21.0-32.0); Chloride 117 meq/L (98-107); Glomerular Filtration Rate 19 mL/min (>89); Glucose,Random 72 mg/dL (74-106); Lipase 596 U/L (73-393); Potassium 4.9 meq/L (3.5-5.1); Sodium 151 meq/L (136-145)
[2018-08-09 07:59] LABS: Alkaline Phosphatase 150 U/L (45-117); Total Protein 6.7 g/dL (6.4-8.2)
[2018-08-09 08:23] LABS: Lymphocytes 5 % (9-44); Metamyelocytes 1 % (0-1); Monocytes 2 % (0-8)
[2018-08-09 08:24] LABS: Platelet Estimate Normal (Normal)
[2018-08-09 08:25] LABS: Platelet Morphology Normal (Normal)
[2018-08-09] MEDS: Lipase/Protease/Amylase 12/38/60 DR Capsule PO SCH ×3 (09:00→17:47)
[2018-08-09] MEDS: amLODIPine 5 MG Tablet PO SCH (09:00)
[2018-08-09] MEDS: Metoprolol Tartrate 25 MG Tablet PO SCH ×2 (09:00→20:37)
[2018-08-09] MEDS: Sucralfate 1 GM Tablet PO SCH ×3 (09:06→17:05)
--- NOTE | 2018-08-09 14:27 | P.PNIM ---
Subjective Interval history: Follow up: Idiopathic pancreatitis, WAYNE on Chronic kidney failure and electrolyte abnormalities Patient reports abd pain improved at this time. looking forward to sipping on liquids and agrees to resume TFing Physical Exam Vital signs: Vital Signs 08/08/18 16:00 08/08/18 20:00 08/08/18 21:41 Temperature 98.5 F 99.3 F Pulse Rate 109 H 115 H Respiratory Rate 20 20 22 Blood Pressure 160/81 H 153/75 H Pulse Oximetry 96 93 L 08/09/18 00:00 08/09/18 04:00 08/09/18 08:00 Temperature 99.2 F 97.8 F 98.8 F Pulse Rate 100 H 82 120 H Respiratory Rate 18 17 17 Blood Pressure 145/81 H 156/82 H 153/83 H Pulse Oximetry 98 96 98 08/09/18 09:00 08/09/18 10:46 08/09/18 12:00 Temperature 98.6 F Pulse Rate 120 H 96 H Respiratory Rate 17 18 Blood Pressure 145/76 H Pulse Oximetry 97 Intake & Output 08/08/18 08/09/18 08/09/18 18:59 06:59 18:59 Intake Total 2120 / 2120 240 / 240 500 / 500 Output Total 575 / 575 Balance 1545 / 1545 240 / 240 500 / 500 Weight 61 kg Intake: IV 2000 / 2000 500 / 500 NS + KCl 20 mEq Inj 1,000 ML @ 2000 / 2000 100 mls/hr IV.CONT .Q10H [facility] Rx #:[id number] NS Inj 1,000 ML @ 75 mls/hr IV. 500 / 500 CONT .[id number] HITESH Rx#:[id number] Oral 120 / 120 240 / 240 Output: Urine 500 / 500 Gastric Drainage 75 / 75 Left Upper Quadrant 75 / 75 Gastrojejunostomy Tube Other: # Voids 3 # Bowel Movements 1 Narrative: GENERAL: This is a 82 year old female, well-developed patient, in no apparent distress. CARDIO: Regular RESP: CTA bilaterally. ABD: +BS, soft, nontender, nondistended. GJ tube in place, no drainage or puss noted at the insertion site EXT: No edema. Results - Labs CBC & Chem 7: 08/10/18 03:30 08/10/18 03:30 Laboratory Results - last 24 hr 08/09/18 08/09/18 03:52 03:52 WBC 33.0 H RBC 2.83 L Hgb 8.0 L Hct 24.6 L MCV 86.9 MCH 28.4 MCHC 32.7 RDW 19.7 H Plt Count 402 MPV 7.5 Prelim Diff (Auto) Slide review pending Neut % (Auto) 90.5 H Lymph % (Auto) 4.3 L [place] % (Auto) 4.5 Eos % (Auto) 0.5 Baso % (Auto) 0.2 Neut # (Auto) 29.9 H Lymph # (Auto) 1.4 [place] # (Auto) 1.5 H Eos # (Auto) 0.2 Baso # (Auto) 0.1 WBC Differential Manual diff final Seg Neuts % (Manual) 87 H Band Neuts % (Manual) 5 Lymphocytes % (Manual) 5 L Monocytes % (Manual) 2 Metamyelocytes % (Man) 1 Abs Neuts (Manual) 30.7 H Differential Comment . Platelet Estimate Normal Platelet Morphology Normal Sodium 151 H Potassium 4.9 Chloride 117 H Carbon Dioxide 21.6 Anion Gap 12 BUN 24 H Creatinine 2.89 H Estimated GFR 19 L Random Glucose 72 L Calcium 8.0 L Total Bilirubin 0.3 AST 8 L ALT 8 L Alkaline Phosphatase 150 H Total Protein 6.7 D Albumin 1.8 L Lipase 596 H - Imaging Impressions Tube Check 08/08/18 00:00 CONCLUSION: 1. Uncomplicated tube injection as above. The tube was not exchanged. Assessment and Plan - Assessment (1) Idiopathic pancreatitis Code(s): K85.00 - Idiopathic acute pancreatitis without necrosis or infection Status: Acute Plan: Idiopathic pancreatitis - Patient is an 82 y/o AAF with recurrent idiopathic pancreatitis. She has been hospitalized numerous times for issues with pain control related to recurrent pancreatitis. Her last admission was from 07/13/18 to 07/26/18 due to WAYNE, idiopathic pancreatitis and had her GJ tube exchanged 07/25/18. - Patient again presented to the ER last night due to worsening abd pain associated with nausea but no vomiting. Patient reports that she always had mild epigastric pain, but yesterday evening it again became more severe and is associated with nausea but not vomiting. Denies fever or chills, chest pain, cough, difficulty flushing J tube, or diarrhea. - On admission WBC 21.6, BUN 44, creatinine 2.60 and lipase 2673. - CT abd/pelvis was done and revealed: 1. Postoperative changes of biliary stent with biliary drainage catheter passing through the stent. Gastrojejunostomy tube again noted. 2. Mild stranding of fat around the pancreas could indicate a mild pancreatitis. 3. 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 - PO pain medication as needed - Appreciate input from GI. - Pt underwent repeat ERCP with stent exchange, 08/02/18 (ERCP and stent exchange cancelled on 08/01 as patient's daughter needed to talk with Dr. Ortega prior to signing consent.). According to the procedure report, the common bile duct had multiple filling defects which were able to be cleaned out and once cleaned he was able to clearly see the ingrowth into the old metal stent and so a 10 [place] 40 mm stent was placed within the first metal stent and it protruded about a centimeter into the duodenum with good drainage noted. The intrahepatics appeared to be unremarkable - Dietary recommended TF with Suplena with goal rate 40mls/hr, orders placed for this for discharge as pt was previously on Jevity but complained of diarrhea. - Pts lipase started to trend slightly up on 08/07 and 08/08 - WBC 21.6 (07/28), 24.9 (07/29), 22.6 (07/30), 24 (07/31), 22.1 (08/02), 31.4 (08/03) , 29.2 (08/04), 23.5 (08/05), 34.9 (08/08), 33.0 (08/09) - lipase 2673 (07/28), 2471 (07/29), 758 (07/30), 215 (08/10), 155 (08/02), 730 (08/03 ), 509 (08/04), 423 (08/05), 708 (08/07), 768 (08/08), 596 (08/09) - Repeat labs in AM - On 08/07 the pts nurse reported that when flushing the J-tube that the water was coming up through the pts insertion site in the skin. - IR to re-evaluate GJ tube 08/[address] Lala: G and J ports both patent. No findings of leakage from tube or through dermatotomy. Patient does appear to have some stasis of material in gastric lumen probably secondary to gastroparesis. Placed G-port to gravity drainage. Discussed with patients nurse on floor but she had only received report of tube leaking and did not witness it herself. Discussed the decompression of the gastric lumen with gravity drainage. Tube o/w OK so no change. -resume TFing with free water flush - SCDs for DVT prophylaxis Chronic kidney failure - Pt with baseline stage 3 CKD, pt follows with Dr. Melara - avoid nephrotoxic agents - Per RN several OTC Advil found hidden in a tissue box at patient's bedside. Discussed with patient and nurse that she should not be taking Advil given her renal function and should not be taking outside medications HTN (hypertension) - Cont. home meds - Monitor GERD (gastroesophageal reflux disease) - PPI Hypomagnesemia - replete Hypernatremia - sodium 151 this AM - patient has not received free water flush due to concern regarding GJ tube, discussed with nurse who will resume free water flush - recheck sodium in AM Hypokalemia - Improved with replacement anemia - d/t chronic disease, stable. - this diagnosis has been explored during prior hospitalizations and d/w Hematology - anemia felt to be d/t underlying disease processes - observe - Attending Attestation Patient examined. Assessment and plan formulated with Olga Weiss PA-C. I agree with the above. (1) Idiopathic pancreatitis Qualifiers:
[2018-08-09] MEDS: Acetaminophen 325 MG Tablet PO PRN (20:37)
[2018-08-10 05:03] LABS: Baso # (Auto) 0.1 th/mm3 (0.0-0.2); Baso % (Auto) 0.3 % (0.0-2.0); Eos # (Auto) 0.1 th/mm3 (0.0-0.4); Eos % (Auto) 0.3 % (0.0-4.0); Hematocrit 26.5 % (35.0-46.0); Hemoglobin 8.4 gm/dL (11.6-15.3); Lymph % (Auto) 5.8 % (9.0-44.0); Mean Corpuscular HGB Conc 31.5 % (32.0-36.0); Mean Corpuscular Hemoglobin 27.9 pg (27.0-34.0); Mean Corpuscular Volume 88.7 fL (80.0-100.0); Mean Platelet Volume 7.8 fL (7.0-11.0); Mono # (Auto) 1.5 th/mm3 (0.0-0.9); Mono % (Auto) 4.4 % (0.0-8.0); Neut # (Auto) 31.4 th/mm3 (1.8-7.7); Neut % (Auto) 89.2 % (16.0-70.0); Platelet Count 461 th/mm3 (150-450); Red Blood Count 2.99 mil/mm3 (4.00-5.30); Red Cell Distribution Width 19.8 % (11.6-17.2); White Blood Count 35.1 th/mm3 (4.0-11.0)
[2018-08-10 05:35] LABS: Alanine Aminotransferase 14 U/L (10-53); Albumin 1.8 g/dL (3.4-5.0); Alkaline Phosphatase 162 U/L (45-117); Anion Gap 13 meq/L (5-15); Aspartate Aminotransferase 18 U/L (15-37); Blood Urea Nitrogen 25 mg/dL (7-18); Calcium 8.4 mg/dL (8.5-10.1); Carbon Dioxide 18.9 meq/L (21.0-32.0); Chloride 115 meq/L (98-107); Glomerular Filtration Rate 16 mL/min (>89); Glucose,Random 114 mg/dL (74-106); Lipase 459 U/L (73-393); Potassium 4.8 meq/L (3.5-5.1); Sodium 147 meq/L (136-145); Total Protein 7.3 g/dL (6.4-8.2)
[2018-08-10] MEDS: Sod Chloride 0.9% Inj 1,000 ML IV.CONT SCH ×2 (06:23→20:50)
[2018-08-10 06:43] LABS: Lymphocytes 7 % (9-44); Monocytes 3 % (0-8); Platelet Morphology Normal (Normal)
[2018-08-10 06:44] LABS: Target Cells 1+
[2018-08-10] MEDS: Lipase/Protease/Amylase 12/38/60 DR Capsule PO SCH ×3 (08:29→18:00)
[2018-08-10] MEDS: amLODIPine 5 MG Tablet PO SCH (08:30)
[2018-08-10] MEDS: Sucralfate 1 GM Tablet PO SCH ×3 (08:30→17:11)
[2018-08-10] MEDS: Metoprolol Tartrate 25 MG Tablet PO SCH ×2 (08:30→20:50)
--- NOTE | 2018-08-10 13:44 | P.PNIM ---
Subjective Interval history: No new complaints. Pt is tolerating TF and clear liquids. Pt continues to c/o abdominal pain requiring narcotics. Physical Exam Vital signs: 08/10/18 12:00 Temperature 99.1 F Pulse Rate 116 H Respiratory Rate 18 Blood Pressure 157/76 H Pulse Oximetry 99 Narrative: GENERAL: This is a 82 year old female, well-developed patient, in no apparent distress. CARDIO: Regular RESP: CTA bilaterally. ABD: +BS, soft, nontender, nondistended. GJ tube in place, no drainage or puss noted at the insertion site EXT: No edema. Results - Labs CBC & Chem 7: 08/10/18 03:30 08/10/18 03:30 - Imaging Abdomen/Pelvis CT 07/28/18 01:18 1. Postoperative changes of biliary stent with biliary drainage catheter passing through the stent. Gastrojejunostomy tube again noted. 2. Mild stranding of fat around the pancreas could indicate a mild pancreatitis. 3. 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 GI Procedure 08/02/18 00:00 A biliary stent has been placed. It is in good position. There is good filling of the hepatic ducts. Tube Check 08/08/18 00:00 1. Uncomplicated tube injection as above. The tube was not exchanged. Assessment and Plan - Assessment (1) Idiopathic pancreatitis Code(s): K85.00 - Idiopathic acute pancreatitis without necrosis or infection Status: Acute Plan: Idiopathic pancreatitis - Patient is an 82 y/o AAF with recurrent idiopathic pancreatitis. She has been hospitalized numerous times for issues with pain control related to recurrent pancreatitis. Her last admission was from 07/13/18 to 07/26/18 due to WAYNE, idiopathic pancreatitis and had her GJ tube exchanged 07/25/18. - Patient again presented to the ER last night due to worsening abd pain associated with nausea but no vomiting. Patient reports that she always had mild epigastric pain, but yesterday evening it again became more severe and is associated with nausea but not vomiting. Denies fever or chills, chest pain, cough, difficulty flushing J tube, or diarrhea. - On admission WBC 21.6, BUN 44, creatinine 2.60 and lipase 2673. - CT abd/pelvis was done and revealed: 1. Postoperative changes of biliary stent with biliary drainage catheter passing through the stent. Gastrojejunostomy tube again noted. 2. Mild stranding of fat around the pancreas could indicate a mild pancreatitis. 3. 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 - PO pain medication as needed - Appreciate input from GI. - Pt underwent repeat ERCP with stent exchange, 08/02/18 (ERCP and stent exchange cancelled on 08/01 as patient's daughter needed to talk with Dr. Ortega prior to signing consent.). According to the procedure report, the common bile duct had multiple filling defects which were able to be cleaned out and once cleaned he was able to clearly see the ingrowth into the old metal stent and so a 10 [place] 40 mm stent was placed within the first metal stent and it protruded about a centimeter into the duodenum with good drainage noted. The intrahepatics appeared to be unremarkable - Dietary recommended TF with Suplena with goal rate 40mls/hr, orders placed for this for discharge as pt was previously on Jevity but complained of diarrhea. - Pts lipase started to trend slightly up on 08/07 and 08/08 - WBC 21.6 (07/28), 24.9 (07/29), 22.6 (07/30), 24 (07/31), 22.1 (08/02), 31.4 (08/03) , 29.2 (08/04), 23.5 (08/05), 34.9 (08/08), 33.0 (08/09) - lipase 2673 (07/28), 2471 (07/29), 758 (07/30), 215 (08/10), 155 (08/02), 730 (08/03 ), 509 (08/04), 423 (08/05), 708 (08/07), 768 (08/08), 596 (08/09), 459 (08/10/18) - Repeat labs in AM - On 08/07 the pts nurse reported that when flushing the J-tube that the water was coming up through the pts insertion site in the skin. - GJ tube reevaluated by Dr. Lala (08/08/18) G and J ports both patent. No findings of leakage from tube or through dermatotomy. Patient does appear to have some stasis of material in gastric lumen probably secondary to gastroparesis. Placed G-port to gravity drainage. Discussed with patients nurse on floor but she had only received report of tube leaking and did not witness it herself. Discussed the decompression of the gastric lumen with gravity drainage. Tube o/w OK so no change. - continue TF by J-tube - continue clears - norco prn - SCDs for DVT prophylaxis - request Palliative Medicine for clarification of goals. - Pt/daughter request second GI opinion. Dr. Bravo informed. Case d/w Dr. Stewart. He will consult. Chronic kidney failure - Pt with baseline stage 3 CKD, pt follows with Dr. Melara - avoid nephrotoxic agents - Per RN several OTC Advil found hidden in a tissue box at patient's bedside. Discussed with patient and nurse that she should not be taking Advil given her renal function and should not be taking outside medications - Cr 3.37 (08/10) - continue IVFs - repeat CMP in AM Hypernatremia - improving - sodium 151 (08/09), 147 (08/10) - patient has not received free water flush due to concern regarding GJ tube, discussed with nurse who will resume free water flush - recheck sodium in AM Leukocytosis, persistent - [facility] Medical team has cared for Ms. Larsen for several years and many different admissions. - Pt tends to have marked persistent leukocytosis during her admissions which correlated to flares of her idiopathic pancreatitis - paradoxically, pt's leukocytosis has improved in the past, as well as her clinical condition with steroids - possibly d/t to a reactive process - Pt has had NO fever above 99.9F this entire admission - There is NO indication of infection. Pt has NO c/o cough, SOB, or dysuria. There is NO diarrhea. - obtain peripheral smear - doubt underlying leukemic process, and this has been previously considered. Case d/w Dr. Perea. He will consult. HTN (hypertension) - Cont. home meds - Monitor GERD (gastroesophageal reflux disease) - PPI Hypomagnesemia - replete Hypokalemia - Improved with replacement anemia - d/t chronic disease, stable. - this diagnosis has been explored during prior hospitalizations and d/w Hematology - anemia felt to be d/t underlying disease processes - observe (1) Idiopathic pancreatitis Qualifiers:
[2018-08-10] MEDS ORDERED: Sodium Chloride 0.9% 2 ML Flush PRN IV.FLUSH (14:02)
[2018-08-10] MEDS: Sodium Chloride 0.45 % Inj 1,000 ML IV.CONT SCH (15:21)
--- NOTE | 2018-08-10 16:07 | P.CONPAL ---
Consult Service: Palliative Care Requesting Physician: Alexander Eddy Reason for Consult: a. To assist with evaluation and management of symptoms including: Pain, nausea , debility b. To assist medical decision maker(s) with: better understanding of current medical conditions; weighing benefits/burdens of medical treatment options; making medical treatment decisions. Primary Care Provider: Hong Peterson MD History of Present Illness History of Present Illness: Mrs Larsen is an 82-year-old female with a history significant for recurrent idiopathic pancreatitis, GERD, hypertension, anemia, chronic kidney disease and has a gastrojejunal tube. Patient has been hospitalized numerous times for issues regarding pain control related to recurrent pancreatitis. The last admission was from 06/291813/10/18 due to acute kidney injury, idiopathic pancreatitis and exchange of GJ tube on 07/25/18. Patient presented to the ER on 07/28/18 with complaints of worsening abdominal pain associated with nausea. Patient denied vomiting, fever or chills, chest pain, cough, diarrhea or problems with J-tube. ER course: * Vital signs: Presented 8.9, pulse 95, respirations 20, BP 119/73, O2 sats 99%. * EKG reveals sinus rhythm and nonspecific T-wave abnormality * CT abdomen/pelvis revealed postoperative changes of biliary stent with biliary drainage catheter passing through the stent, mild stranding of fat around the pancreas could indicate a mild pancreatitis and stable degenerative change in anterior listhesis is the lumbosacral junction with bilateral pars defects. GI Dr. Lino consulted on 07/28/18 for evaluation and management of a patient with recurrent idiopathic pancreatitis, recommended ERCP with stent exchange. Dietitian consulted on 07/28/18 for nutritional screening-report of weight loss greater than 10 pounds, recommended [place] at goal rate of 40 mL's per hour to provide enough caloric intake. Physical therapy consulted on 07/30/18, recommended home with home health PT. Patient underwent ERCP with stent exchange on 08/02/18 and per procedure report, the common bile duct. Multiple filling defects which was able to be cleaned out. It was noted that there was ingrowth into the old metal stent and a 10 [place] 40 mm stent was placed within the faced metal stent and it protruded about a centimeter into the duodenum with good drainage noted. Intrahepatics appeared to be unremarkable. On 9/24/ 18 GJ tube was reevaluated by interventional radiology Dr. Lala after niece he had reported leaking of water through the incision site with flushing-G and J ports were both noted to be patent with no leakage from tube or through dermatotomy. Patient's daughter has requested a second GI opinion. Laboratory workup today 08/10/18 reveals WBC 35.1, hemoglobin 8.4, hematocrit 26.5, platelet count 461, sodium 147, potassium 4.8, BUN/creatinine 35/3.37, calcium 8.4, AST 18, ALT 14, lipase 459, total protein 7.3, albumin 1.8. Clinical course complicated with abdominal pain, persistent leukocytosis, elevated lipase and imaging consistent with acute pancreatitis. Patient seen and examined in her room. Patient lethargic, oriented to self, place and situation. Bedside RN reported that patient is not eating any food, she is just drinking apple juice. Introduced palliative care and role in symptom management and establishment of goals of medical treatment. Patient endorsing abdominal pain. Per bedside RN she just received morphine sulfate for pain. Patient refusing to speak at this time, states she just wants to be left alone she does not want talk now. Asked patient if she wanted palliative care to contact her daughter and discuss her medical status. Patient refused. Bedside RN explained importance of visit to patient. Patient seen again in the presence of bedside RN. Addressed CODE STATUS, discussed CPR benefits, complications and limitations, patient stated that she would want to be resuscitated and intubated if need be. Attempted to see if patient would just admit a healthcare surrogate. Patient refused to designate a HCS. Patient stated that she had 2 children and one is . Unable to elicit whether patient is , or . Explained to patient what [place] statutes states in regards to health care proxy. Patient tearfully asking to be left alone. Case discussed with bedside RN. Function/Cognitive Trajectory: Most of the information obtained from electronic medical records. Patient has had multiple hospitalizations, including multiple replacements of GJ tube. Patient receives overnight continuous feeding through the J-tube. Patient has had multiple biliary stents placed and exchanged. Last ERCP was done on June 30, 2018 with removal of plastic stent, and metallic stent seemed to be migrated inside the duct, cholangiogram revealed the duct to be full of debris' s and stones, S/P sweeping with balloon multiple stones in significant amount of sludge and thick material removed, duct was irrigated and a new 10 Gambian 9 cm stent was placed inside the already placed metallic stent. Patient is also had falls. Patient resides at home with her granddaughter. She ambulates with a walker. Review of Systems Constitutional: Reports weakness, Reports weight loss, Denies fever(s) Eyes: Denies loss of vision Ears, Nose, Mouth, and Throat: Denies abnormal hearing, Denies hearing loss, Denies nasal congestion, Denies sore throat, Denies throat swelling Cardiovascular: Denies chest pain, Denies leg swelling, Denies shortness of breath Respiratory: Denies cough, Denies shortness of breath Gastrointestinal: Reports abdominal pain, Reports nausea, Denies constipation, Denies difficulty swallowing, Denies loose stools, Denies vomiting Genitourinary: Denies urinary incontinence Musculoskeletal: Reports body aches Skin/Breast: Denies unusual bruising, Denies wounds Neurologic: Denies abnormal hearing Psychiatric: Denies anxiety, Denies confusion Endocrine: Denies increased hunger, Denies increased thirst Hematologic/Lymphatic: Denies easy bruising PMFSH - History History Provided By: Patient, Medical Record - Medical History Medical History: Medical History (Last Reviewed 08/10/18 @ 09:34 by Marie Vides) Anxiety CKD (chronic kidney disease) stage 3, GFR 30-59 ml/min Encounter for gastrojejunal (GJ) tube placement GERD (gastroesophageal reflux disease) Hx of blood transfusion reaction Hypertension Idiopathic pancreatitis Pancreatitis - Surgical History Surgical History: Surgical History (Last Reviewed 08/10/18 @ 09:34 by Marie Vides) History of total left knee replacement (TKR) Hx of cholecystectomy S/P ERCP - Family History Family History: Family History (Last Updated 08/11/18 @ 09:58 by Katya Turner) Other Has 1 child Has 1 living child - Tobacco History Second Hand Smoke Exposure: No Smoking Status: Never smoker - Alcohol History How Often Do You Have a Drink Containing Alcohol: Never - Substance Use History Substance History: No History of Abuse - Travel History Recent Travel in the [place] Within the Last 8 Weeks: No Recent Travel Out of the Country Within the Last 8 Weeks: No - Immunization History Tetanus Immunization: Unable to Assess Hx Influenza Vaccine This Season: Unable to Assess Medications and Allergies Active Medications: Active Medications Acetaminophen (Tylenol) 650 mg PO Q6H PRN PRN Reason: TEMPERATURE > 101 F Last Admin: 08/09/18 20:37 Dose: 650 mg Hydrocodone Bitart/Acetaminophen (Spencer 5/325) 1 tab PO Q4H PRN PRN Reason: FOR PAIN SCALE 2 TO 10 Last Admin: 08/10/18 13:39 Dose: 1 tab Al Hydroxide/Mg Hydroxide (Milk Of [place] Liq) 30 ml PO QID PRN PRN Reason: CONSTIPATION Amlodipine Besylate (Norvasc) 5 mg PO DAILY [facility] Last Admin: 08/10/18 08:30 Dose: 5 mg Lipase/Protease/Amylase (Mando Kapoor ) 1 cap PO TIDPC [facility] Last Admin: 08/10/18 12:30 Dose: 1 cap Duloxetine HCl (Cymbalta) 20 mg PO DAILY [facility] Last Admin: 08/10/18 08:30 Dose: 20 mg Sodium Chloride (Ns Inj) 1,000 mls @ 75 mls/hr IV.CONT .[id number] [facility] Last Admin: 08/10/18 06:23 Dose: Not Given Sodium Chloride (1/2 Normal Saline Inj) 1,000 mls @ 100 mls/hr IV.CONT .Q10H [facility] Last Admin: 08/10/18 15:21 Dose: 100 mls/hr Metoprolol Tartrate (Lopressor) 25 mg PO BID [facility] Last Admin: 08/10/18 08:30 Dose: 25 mg Morphine Sulfate (Morphine Inj) 2 mg IV.PUSH ONCE ONE Stop: 08/10/18 15:27 Multi-Ingredient Ointment (Blistex Lip [place]) 1 applic TOPICAL Q1H PRN PRN Reason: DRY LIPS Last Admin: 08/09/18 14:24 Dose: 1 applic Ondansetron HCl (Zofran Inj) 4 mg IV.PUSH Q4HR PRN PRN Reason: NAUSEA OR VOMITING Last Admin: 08/08/18 08:57 Dose: 4 mg Pantoprazole Sodium (Protonix) 40 mg PO BID [facility] Last Admin: 08/10/18 08:29 Dose: 40 mg Sodium Chloride (Ns Flush) 2 ml IV.FLUSH BID [facility] Sodium Chloride (Ns Flush) 2 ml IV.FLUSH PRN PRN PRN Reason: FLUSH AFTER USING IV ACCESS Sterile Water (Free Water) 200 ml G-TUBE Q6HR [facility] Last Admin: 08/10/18 11:08 Dose: 200 ml Sucralfate (Carafate) 1 gm PO TID [facility] Last Admin: 08/10/18 12:25 Dose: 1 gm Ursodiol (Actigall) 300 mg PO BID [facility] Last Admin: 08/10/18 08:29 Dose: 300 mg Allergies Allergy/AdvReac Type Severity Reaction Status Date / Time No Known Allergies Allergy Unverified 05/16/18 07:25 Home Medications Medication Instructions Recorded Confirmed Type [id number] [Creon] 1 tab PO TIDPC 05/16/18 07/30/18 History magnesium hydroxide [Presley Milk 311 mg PO QID PRN 05/16/18 07/30/18 History of Magnesia] metoprolol tartrate 25 mg PO BID 05/16/18 07/30/18 History pantoprazole 40 mg PO BID 05/16/18 07/30/18 History sucralfate 1 g PO TID 05/16/18 07/30/18 History Advance Directives Living Will: No Healthcare Surrogate: No Health Care Surrogate Name and Number: HCP: Raj Perez Power of Suit Attendant: No Today's verbally stated goals: Never completed advanced directives. Family/friends goals: No family at bedside. Patient refused to have her daughter contacted by palliative care. Ethical and Legal Issues: None identified at this time. . Physical Exam Vital Signs: Vital Signs - 24 hr 08/09/18 15:34 08/09/18 16:00 08/09/18 20:00 Temperature 99.7 F H 98.1 F Pulse Rate 124 H 118 H Respiratory Rate 17 16 23 Blood Pressure 149/81 H 153/74 H Pulse Oximetry 99 99 08/10/18 00:00 08/10/18 08:30 08/10/18 12:00 Temperature 98.7 F 97.3 F L 99.1 F Pulse Rate 92 H 123 H 116 H Respiratory Rate 22 22 18 Blood Pressure 147/77 H 127/73 157/76 H Pulse Oximetry 98 95 99 I&O: Intake & Output 08/08/18 08/09/18 08/10/18 08/11/18 06:59 06:59 06:59 06:59 Intake Total 1000 / 1000 2360 / 2360 2162 / 2162 200 / 200 Output Total 375 / 375 575 / 575 350 / 350 150 / 150 Balance 625 / 625 1785 / 1785 1812 / 1812 50 / 50 Weight 61.6 kg 61 kg 61 kg Physical Exam: CONSTITUTIONAL/GENERAL: This is a chronically ill looking patient, complaining of abdominal pain and nausea. TUBES/LINES/DRAINS: PIV, GJ tube SKIN: No jaundice, rashes, or lesions. Ecchymoses on upper extremities. No wounds seen anteriorly. Skin temperature appropriate. Not diaphoretic. HEAD: Atraumatic. Normocephalic. EYES: Pupils equal and round and reactive. Extraocular motions intact. No scleral icterus. No injection or drainage. Fundi not examined. ENT: Hearing grossly normal. Nose without bleeding or purulent drainage. Moist oral mucosa NECK: Trachea midline. Supple, nontender. CARDIOVASCULAR: Regular rate and rhythm without murmurs, gallops, or rubs. No JVD. Peripheral pulses symmetric. RESPIRATORY/CHEST: Symmetric, unlabored respirations. Clear to auscultation. Breath sounds equal bilaterally. No wheezes, rales, or rhonchi. GASTROINTESTINAL: Abdomen soft, non-tender, nondistended. Somewhat guarding. Bowel sounds present. GENITOURINARY: Without palpable bladder distension. Balderrama catheter in place. MUSCULOSKELETAL: Extremities without clubbing, cyanosis, or edema. No joint tenderness or effusion noted. No calf tenderness. No mottling or clubbing. NEUROLOGICAL: Lethargic, oriented to self, place and situation. Motor and sensory grossly within normal limits. Follows commands. Moves all extremities. PSYCHIATRIC: No obvious anxiety/depression. no apparent hallucinations or other psychotic thought process. Diagnostic Tests Laboratory: Laboratory Results - last 72 hr 08/08/18 08/08/18 08/09/18 03:42 03:42 03:52 WBC 34.9 H 33.0 H RBC 2.83 L 2.83 L Hgb 7.9 L 8.0 L Hct 24.6 L 24.6 L MCV 86.9 86.9 MCH 28.1 28.4 MCHC 32.3 32.7 RDW 19.1 H 19.7 H Plt Count 339 402 MPV 7.7 7.5 Prelim Diff (Auto) Slide review pending Slide review pending Neut % (Auto) 90.2 H 90.5 H Lymph % (Auto) 4.5 L 4.3 L Avery % (Auto) 4.5 4.5 Eos % (Auto) 0.4 0.5 Baso % (Auto) 0.4 0.2 Neut # (Auto) 31.5 H 29.9 H Lymph # (Auto) 1.6 1.4 Avery # (Auto) 1.6 H 1.5 H Eos # (Auto) 0.1 0.2 Baso # (Auto) 0.1 0.1 WBC Differential Manual diff final Manual diff final Seg Neuts % (Manual) 75 H 87 H Band Neuts % (Manual) 9 H 5 Lymphocytes % (Manual) 5 L 5 L Monocytes % (Manual) 7 2 Metamyelocytes % (Man) 1 1 Myelocytes % (Man) 3 H Abs Neuts (Manual) 30.7 H 30.7 H Differential Comment . . Platelet Estimate Normal Normal Platelet Morphology Normal Normal Target Cells Sodium 146 H Potassium 5.0 Chloride 116 H Carbon Dioxide 20.6 L Anion Gap 9 BUN 26 H Creatinine 2.81 H Estimated GFR 20 L Random Glucose 86 Calcium 8.1 L Total Bilirubin AST ALT Alkaline Phosphatase Total Protein Albumin Lipase 768 H 08/09/18 08/10/18 08/10/18 03:52 03:30 03:30 WBC 35.1 H RBC 2.99 L Hgb 8.4 L Hct 26.5 L MCV 88.7 MCH 27.9 MCHC 31.5 L RDW 19.8 H Plt Count 461 H MPV 7.8 Prelim Diff (Auto) Slide review pending Neut % (Auto) 89.2 H Lymph % (Auto) 5.8 L Avery % (Auto) 4.4 Eos % (Auto) 0.3 Baso % (Auto) 0.3 Neut # (Auto) 31.4 H Lymph # (Auto) 2.0 Avery # (Auto) 1.5 H Eos # (Auto) 0.1 Baso # (Auto) 0.1 WBC Differential Manual diff final Seg Neuts % (Manual) 84 H Band Neuts % (Manual) 6 Lymphocytes % (Manual) 7 L Monocytes % (Manual) 3 Metamyelocytes % (Man) Myelocytes % (Man) Abs Neuts (Manual) 31.6 H Differential Comment . Platelet Estimate High H Platelet Morphology Normal Target Cells 1+ H Sodium 151 H 147 H Potassium 4.9 4.8 Chloride 117 H 115 H Carbon Dioxide 21.6 18.9 L Anion Gap 12 13 BUN 24 H 25 H Creatinine 2.89 H 3.37 H Estimated GFR 19 L 16 L Random Glucose 72 L 114 H Calcium 8.0 L 8.4 L Total Bilirubin 0.3 0.3 AST 8 L 18 ALT 8 L 14 Alkaline Phosphatase 150 H 162 H Total Protein 6.7 D 7.3 D Albumin 1.8 L 1.8 L Lipase 596 H 459 H Result Diagrams: 08/11/18 04:05 08/11/18 04:05 Imaging: Abdomen/Pelvis CT 07/28/18 01:18 CONCLUSION: 1. Postoperative changes of biliary stent with biliary drainage catheter passing through the stent. Gastrojejunostomy tube again noted. 2. Mild stranding of fat around the pancreas could indicate a mild pancreatitis. 3. 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 GI Procedure 08/02/18 00:00 CONCLUSION: A biliary stent has been placed. It is in good position. There is good filling of the hepatic ducts. Tube Check 08/08/18 00:00 CONCLUSION: 1. Uncomplicated tube injection as above. The tube was not exchanged. Procedures: 08/02/18-ERCP with stent exchange 08/08/18-GJ tube check by interventional radiology Patient/Family Conference Family Conference Location: Bedside Issues Discussed: * Palliative care role, purpose, approach * Additional medical, psychosocial, and spiritual history * Patients general health, functional status, and cognitive changes in the months leading up to the current hospitalization * Patient/family understanding of the current medical problems * Patient/family understanding of prognosis * Patients goals of care as best understood from advance directives and/or conversations and/or values * Current medical treatment options and benefits/burdens of those options * Likely scenarios comparing ongoing aggressive care with a transition to comfort measures only * Questions answered to the best of my ability * Palliative care contact information provided Assessment and Plan - Disease Oriented Problem List (1) Leukocytosis (2) Hypernatremia (3) Hypokalemia (4) HTN (hypertension) (5) CKD (chronic kidney disease) (6) GERD (gastroesophageal reflux disease) (7) Anemia - Symptom Scale (1) Pain 0-10 Scale: 8 (Complaining of abdominal pain) (2) Nausea 0-10 Scale: Unable to quantify Comment: Patient complaining of nausea. (3) Debility Comment: Progressive. Pertinent Non-Medical Issues: Psychosocial: Patient is retired. She had 2 children and one of her children is . She lives with her daughter. Spiritual: Patient is Sabianism Legal:Never completed advance directives. Ethical issues impacting care: None identified at this time Important Contacts: Daughter Caitlyn Perez [phone] Granddaughter Anita Albert [phone] Prognosis: Mrs Larsen is an 82-year-old female with a history significant for recurrent idiopathic pancreatitis, GERD, hypertension, anemia, chronic kidney disease and has a gastrojejunal tube. Patient has been hospitalized numerous times for issues regarding pain control related to recurrent pancreatitis. The last admission was from 06/291813/10/18 due to acute kidney injury, idiopathic pancreatitis and exchange of GJ tube on 07/25/18. Patient presented to the ER on 07/28/18 with complaints of worsening abdominal pain associated with nausea. Clinical course complicated with abdominal pain, persistent leukocytosis, elevated lipase and imaging consistent with acute pancreatitis. Given ongoing multiple comorbidities and multiple hospitalizations, patient remains at high risk for further complications, deterioration and decline. Code Status: Full Code Plan: PLAN: Legal decision maker: Patient is currently oriented to self, place and situation. Appears to be able to participate in medical decision making. According to [place] statute, in the event that patient is incapacitated, her only daughter Caitlyn Perez will serve as her healthcare proxy. Goals: Aggressive. Patient refusing to indulge in conversation with palliative care regarding her wishes at this point or even designation of healthcare surrogate. CODE STATUS was addressed and patient elected full code, with understanding of what it entails. Patient refused to have palliative care contact her daughter Caitlyn at this time. CODE STATUS: Full code SYMPTOMS: * Pain: Patient has history of idiopathic pancreatitis. Came in complaining with abdominal pain which appears to be chronic. Lipase is elevated. Patient received a one-time dose of 2 mg morphine sulfate IV push on 08/10/18. patient is currently on hydrocodone/acetaminophen 5/325 every 4hrs prn. Pain medication appendectomy is adequate at this time. * Nausea: Patient has history of pancreatitis. She came in complaining with nausea. Patient is mostly fed via GJ tube. ERCP on 08/02 with stent replacement. Zofran 4mg prn IVP q 6 hrs for nausea available. No recommendations. * Debility: Patient has had multiple hospitalizations with complaints of abdominal pain. Patient ambulates with a walker at home. PT consulted, recommending PT at rehab. Palliative care will continue to follow the patient during hospital course as condition evolves, to assist patient/decision-maker with understanding of their medical conditions, weighing benefits/burdens of treatment options, for clarification of goals of treatment. Additionally will assist with any symptoms of palliative concern Appreciation Thank you for the opportunity to participate in the care of Park Larsen. Attestation Attestation: To help prompt me to consider important information that might be impacting today's encounter and assessment, information from prior notes written by myself or my colleagues may have been "brought forward" into today's note. My signature on this note, however, is an attestation that I personally performed the exam, history, and/or decision-making noted today, and, unless otherwise indicated, the interactions with patient, family, and staff as well as the review of records all occurred today. I also attest that the listed assessment and stated plan reflect my best clinical judgment today based on the combination of historical information, prior notes, and today's exam/ interactions. When time spent is documented, it refers only to time spent today by the signer, or if indicated, combined time spent today by collaborating physician/nurse practitioner.
[2018-08-10] MEDS ORDERED: Morphine Sulfate Inj 2 MG/ML Vial IV.PUSH ONE (16:15)
--- NOTE | 2018-08-10 17:42 | MR ---
cc: Cash Stewart MD, Harry MD Schwartz,Hong Bunch MD DATE: 08/10/2018 THIRD OPINION CONSULT DATE OF CONSULTATION: 08/10/2018 INCIDENT MANAGER: Cash Stewart MD HISTORY OF PRESENT ILLNESS: The patient is an 82-year-old black female who I was asked to see for further evaluation and management of recurrent idiopathic pancreatitis. She tells me symptoms have been bothering her for the past 3 years. She has had biliary stricturing with an indwelling stent and periodic changes of a second biliary stent due to recurrent episodes of obstruction and cholangitis. She has undergone multiple ERCPs with extraction of stones and sludge and stent changes. She has been evaluated here and at [facility] and reportedly no specific explanation has been found as to why she is having recurrent episodes of pancreatitis. MEDICAL HISTORY: Significant for chronic kidney disease, stage III, reflux disease, blood transfusion reaction, hypertension, idiopathic recurrent pancreatitis. SURGERIES: Left total knee replacement, cholecystectomy, multiple ERCPs with stent changes and duct flushing with stone extractions. MEDICATION ALLERGIES: NONE KNOWN TO MEDICINES. MEDICATIONS AT HOME: Include Creon, Milk of Magnesia, metoprolol, pantoprazole, and sucralfate. MEDICINES HERE IN THE HOSPITAL: Hydrocodone, Milk of Magnesia, Norvasc, Creon, Cymbalta, Dilaudid, Lopressor, Zofran, Protonix, Carafate, Actigall. FAMILY HISTORY: Unremarkable for any similar processes. Tobacco Use: Never. Alcohol Use: Never. MEDICAL HISTORY: She has not been outside the country. REVIEW OF SYSTEMS: She has had some chest wall pain. She denies dysphagia or odynophagia. She has had no recent headaches. No history of seizures or strokes. No urinary problems. She is not sure about weight loss. No history of heart disease or lung disease or diabetes. PHYSICAL EXAMINATION: VITAL SIGNS: Her weight is 61 kg. Temperature 99.1, pulse 116, respiratory rate 18, blood pressure 157/76. GENERAL: She is alert. She is oriented. HEENT: She is anicteric. Extraocular motions are intact. LYMPH NODES: I appreciate no submandibular, cervical, supraclavicular, axillary or epitrochlear adenopathy. LUNGS: Clear to auscultation. HEART: Tachycardia with no gross murmur or gallop. ABDOMEN: Good bowel sounds with no appreciable bruit. The abdomen is soft and there is mild epigastric tenderness. There is moderate tenderness in the lateral rib cage, left and right. There is no sternal tenderness. No abdominal masses are palpable. No hepatosplenomegaly are appreciated. No pedal edema, Dupuytren contractures or palmar erythema. LABORATORY STUDIES: On 08/03/2018, white count 31.4, hemoglobin 8.3, platelets 338. Sodium 139 on the with potassium of 3.3, AST 9, ALT 9, alkaline phosphatase 107, albumin 1.6, lipase 509. Today, sodium is 147, potassium 4.8, BUN 25, creatinine 3.37, calcium 8.4. AST and ALT normal. Alk phosphatase 162, bilirubin 1.8, lipase 459. Today's white count is 35.1 with a hemoglobin of 8.4 and platelets of 461, 89% neutrophils. RADIOLOGIC STUDIES: CT scan abdomen and pelvis performed 07/28/2018 revealed postop changes of a biliary stent with biliary drainage catheter passing through the stent II. Gastrojejunostomy tube is again noted. There is mild stranding of fat around the pancreas and stable degenerative changes are noted with anterolisthesis at the lumbosacral junction with bilateral pars defects. IMPRESSION: Chronic recurring idiopathic pancreatitis. We will have to gather old records from [facility] and [facility] to see what evaluations may have been performed. If endoscopic ultrasound has not been performed, doing so may evaluate for pancreatic ductal anomalies. Even if those are found, there is nothing that can be done to change the anatomy. We will try to obtain old records from [facility] and locally to evaluate for possible explanations. In the meantime, she may continue J-tube feedings, and she is only tolerating liquids orally as other foods cause more pain. An explanation should be sought regarding her chest wall pain. I will review the records, though it is not clear I may have much else to offer. I tried reaching the patient's daughter at [phone], but the mailbox is full. MD CANELO Truong/parag , 03:25 PM , 03:37 PM ERNESTINE
--- NOTE | 2018-08-10 19:33 | MB ---
cc: Eliazar Cristina MD, Edward B DO DATE: 08/10/2018 ATTENDING PHYSICIAN: Alexander Eddy DO REASON FOR CONSULTATION: Hematology consulted to render an opinion regarding a patient with persistent leukocytosis. HISTORY OF PRESENT ILLNESS: The patient is an 82-year-old female with a history of recurrent pancreatitis who presented to the hospital again with a complaint of increased abdominal pain and nausea. Her lipase was more than 2600. A CT showed findings consistent with pancreatitis. She had an ERCP and stent exchange on 08/02/2018. During this hospital stay, her white blood cell count trended up from 21,000 to 35,000. Her hemoglobin trended down from 9.9 to 8.4. Her platelet count is relatively stable to slightly elevated. She still has abdominal pain, but it has improved. She denies any nausea or vomiting at this time. She denies any chest pain or shortness of breath. She stated she had loose stool. She remains afebrile. She denies any dysuria or hematuria. PAST MEDICAL HISTORY: 1. Recurrent pancreatitis, which has been going on for more than 5 years. 2. Chronic anemia. 3. Gastric ulcer. 4. Gastroesophageal reflux disease. 5. Anxiety. 6. Hypertension. 7. Gastritis and duodenitis. 8. Colon polyps. 9. Chronic kidney disease. 10. Chronic leukocytosis. 11. Fluctuating thrombocytosis. PAST SURGICAL HISTORY: 1. ERCP with sphincterotomy. 2. Biliary stent placement. 3. Cholecystectomy. 4. Cataract surgery. 5. Hemorrhoidectomy. 6. Upper endoscopy and EUS. 7. Colonoscopy. 8. GJ-tube placement. FAMILY HISTORY: Denies hematologic disorders. SOCIAL HISTORY: Denies tobacco or alcohol use. ALLERGIES: NO KNOWN DRUG ALLERGIES. CURRENT MEDICATIONS: 1. Norvasc. 2. Creon. 3. Cymbalta. 4. Lopressor. 5. Protonix. 6. Carafate. 7. Ursodiol. REVIEW OF SYSTEMS: CONSTITUTIONAL: As above. EYES: Negative. ENT: Negative. CARDIOVASCULAR: No chest pressure or palpitations. RESPIRATORY: No shortness of breath or cough. GASTROINTESTINAL: As above. GENITOURINARY: Negative. MUSCULOSKELETAL: Negative. HEMATOLOGIC: As above. ENDOCRINE: Negative. DERMATOLOGIC: Negative. PSYCHIATRIC: Negative. NEUROLOGIC: Negative. PHYSICAL EXAMINATION: VITAL SIGNS: Temperature 98.3, blood pressure 151/79, O2 saturation 100% on room air. GENERAL: She is alert, oriented x 3. She is sleepy and weak. HEENT: Atraumatic, normocephalic. Pupils are equal, round, reactive to light. Extraocular muscles ARE intact. No scleral icterus. Oropharynx with dry mucosa. NECK: No thyromegaly. No palpable masses. LYMPHATIC: No palpable cervical, clavicular, axillary or inguinal lymph nodes. HEART: Regular S1, S2. No murmur. LUNGS: Clear to auscultation without wheezes or rhonchi. ABDOMEN: Soft, tender in the mid abdomen. No rebound, no rigidity. Positive bowel sounds. EXTREMITIES: No cyanosis, no clubbing, no edema. SKIN: No rash or petechiae. NEUROLOGIC: Nonfocal. LABORATORY DATA: Reviewed CBCs throughout this hospital stay. ASSESSMENT: 1. Chronic leukocytosis, most consistent with a leukemoid reaction. She has had fluctuating white blood cell counts for several years that usually coincide with a hospital admissions and exacerbation of pancreatitis. In February 2017, she had flow cytometry which did not show any abnormal immunophenotype and no evidence of leukemia. JAK2 mutation and FISH study for BCR-ABL at that time was also negative. During this hospital stay, her white blood cell count trended up from 21,000 to 35,000. There was also evidence of bandemia. I think this is most consistent with a reactive process. I am going to check her sedimentation rate and C-reactive protein and I would expect them to be high. 2. Chronic anemia, which is multifactorial due to chronic kidney disease as well as chronic inflammatory disease. Her hemoglobin trended down from 9.9 to 8.4 during this hospital stay. We will check iron studies and vitamin studies. Can consider giving her Epogen if her hemoglobin continues to trend down. She has no evidence of bleeding at this time. 3. Fluctuating thrombocytosis. She has mild thrombocytosis intermittently, again consistent with a reactive process. 4. Recurrent pancreatitis. This has been going on for more than 5 years. She recently had an endoscopic retrograde cholangiopancreatography with biliary stent exchange. RECOMMENDATIONS: 1. We will check sedimentation rate and C-reactive protein. 2. Check iron and vitamin studies. 3. Continue to monitor CBC. 4. I anticipate her white blood cell count will trend down when her pancreatitis subsides. 5. Discussed case with Dr. Eddy. Thank you, Dr. Eddy, for asking me to see this patient. MD DARY Holt/teofilo , 05:43 PM , 05:57 PM ERNESTINE
[2018-08-10] MEDS: Sodium Chloride 0.9% 2 ML Flush BID IV.FLUSH SCH (20:50)
[2018-08-11] MEDS: Sodium Chloride 0.45 % Inj 1,000 ML IV.CONT SCH ×3 (00:44→21:21)
[2018-08-11 04:23] LABS: Baso # (Auto) 0.3 th/mm3 (0.0-0.2); Baso % (Auto) 0.8 % (0.0-2.0); Eos # (Auto) 0.2 th/mm3 (0.0-0.4); Eos % (Auto) 0.6 % (0.0-4.0); Hematocrit 24.8 % (35.0-46.0); Lymph # (Auto) 2.1 th/mm3 (1.0-4.8); Lymph % (Auto) 5.9 % (9.0-44.0); Mean Corpuscular HGB Conc 32.4 % (32.0-36.0); Mean Corpuscular Hemoglobin 27.9 pg (27.0-34.0); Mean Platelet Volume 7.7 fL (7.0-11.0); Mono # (Auto) 1.6 th/mm3 (0.0-0.9); Mono % (Auto) 4.4 % (0.0-8.0); Neut # (Auto) 32.1 th/mm3 (1.8-7.7); Neut % (Auto) 88.3 % (16.0-70.0); Platelet Count 478 th/mm3 (150-450); Red Blood Count 2.88 mil/mm3 (4.00-5.30); Red Cell Distribution Width 19.7 % (11.6-17.2); White Blood Count 36.4 th/mm3 (4.0-11.0)
[2018-08-11 04:42] LABS: Albumin 1.6 g/dL (3.4-5.0); Anion Gap 9 meq/L (5-15); Aspartate Aminotransferase 9 U/L (15-37); Blood Urea Nitrogen 30 mg/dL (7-18); Calcium 7.9 mg/dL (8.5-10.1); Carbon Dioxide 22.6 meq/L (21.0-32.0); Chloride 113 meq/L (98-107); Glomerular Filtration Rate 15 mL/min (>89); Glucose,Random 114 mg/dL (74-106); Magnesium 1.5 mg/dL (1.5-2.5); Potassium 4.2 meq/L (3.5-5.1); Sodium 145 meq/L (136-145)
[2018-08-11 04:45] LABS: Alanine Aminotransferase 10 U/L (10-53); Alkaline Phosphatase 159 U/L (45-117); Total Protein 6.8 g/dL (6.4-8.2)
[2018-08-11 05:10] LABS: % Iron Saturation 28.9 % (20-50); C-Reactive Protein 24.8 mg/dL (0.00-0.30); Folate 10.2 ng/mL (3.1-17.5)
[2018-08-11 05:13] LABS: Eosinophils 1 % (0-4); Lymphocytes 7 % (9-44); Monocytes 5 % (0-8); Tallied Nucleated RBC 1 (0-0)
[2018-08-11 05:15] LABS: Platelet Estimate Normal (Normal); Platelet Morphology Normal (Normal); Toxic Vacuolation Present
[2018-08-11 05:16] LABS: Spherocytes Occ
--- NOTE | 2018-08-11 07:47 | P.PNONC ---
Subjective Interval history: Patient still complains of abdominal pain. She has no chest pain or shortness of breath. She remains afebrile. Objective Vital Signs/Intake & Output: Vital Signs 08/10/18 08:30 08/10/18 12:00 08/10/18 16:00 Temperature 97.3 F L 99.1 F 98.3 F Pulse Rate 123 H 116 H 112 H Respiratory Rate 22 18 17 Blood Pressure 127/73 157/76 H 151/79 H Pulse Oximetry 95 99 100 08/10/18 20:00 Temperature 98.5 F Pulse Rate 120 H Respiratory Rate 16 Blood Pressure 150/77 H Pulse Oximetry 95 Intake & Output 08/10/18 08/11/18 08/11/18 18:59 06:59 18:59 Intake Total 760 / 760 1000 / 1000 Output Total 375 / 375 Balance 385 / 385 1000 / 1000 Intake: IV 1000 / 1000 1/2 Normal Saline Inj 1,000 ML 1000 / 1000 @ 100 mls/hr IV.CONT .Q10H HITESH Rx#:[id number] Oral 360 / 360 Water Bolus Amount 400 / 400 Output: Urine 225 / 225 Emesis 150 / 150 Other: Date of Last Bowel Movement 08/09/18 08/09/18 # Bowel Movements 1 Result Diagrams: 08/11/18 04:05 08/11/18 04:05 Laboratory Results: Laboratory Results - last 24 hr 08/11/18 08/11/18 08/11/18 04:05 04:05 04:05 CBC w Diff WBC 36.4 H Corrected WBC RBC 2.88 L Hgb 8.0 L Hct 24.8 L MCV 86.0 MCH 27.9 MCHC 32.4 RDW 19.7 H Plt Count 478 H MPV 7.7 Prelim Diff (Auto) Slide review pending Immature Gran % (Auto) Neut % (Auto) 88.3 H Lymph % (Auto) 5.9 L [place] % (Auto) 4.4 Eos % (Auto) 0.6 Baso % (Auto) 0.8 Immature Gran # (Auto) Neut # (Auto) 32.1 H Lymph # (Auto) 2.1 [place] # (Auto) 1.6 H Eos # (Auto) 0.2 Baso # (Auto) 0.3 H WBC Differential Manual diff final Diff Scan Seg Neuts % (Manual) 86 H Band Neuts % (Manual) 1 Lymphocytes % (Manual) 7 L Atypical Lymphs % (Man) Monocytes % (Manual) 5 Eosinophils % (Manual) 1 Basophils % (Manual) Metamyelocytes % (Man) Myelocytes % (Man) Promyelocytes % (Man) Blast Cells % (Manual) Plasma Cell % (Manual) Other Cells % Abs Neuts (Manual) 31.7 H Nucleated RBCs/100 WBC 1 H Differential Comment . Hypersegmented Neuts Smudge Cells Toxic Granulation Toxic Vacuolation Present H Dohle Bodies Platelet Estimate Normal Platelet Morphology Normal RBC Morphology Dimorphic RBCs Polychromasia Basophilic Stippling Spherocytes Occ H Pappenheimer Bodies Sickle Cells Target Cells Tear Drop Cells Ovalocytes Stomatocytes Helmet Cells [place] Bodies Rex Cells Acanthocytes (Spur) Rouleaux Keratocytes Occ H ESR Greater than 140 H Hematology Comments Sodium 145 Potassium 4.2 Chloride 113 H Carbon Dioxide 22.6 Anion Gap 9 BUN 30 H Creatinine 3.54 H Estimated GFR 15 L Random Glucose 114 H Calcium 7.9 L Magnesium 1.5 Iron 17 L TIBC 59 L % Saturation 28.9 Ferritin 950 H Total Bilirubin 0.2 AST 9 L ALT 10 Alkaline Phosphatase 159 H C-Reactive Protein 24.80 H Total Protein 6.8 Albumin 1.6 L Lipase 531 H Vitamin B12 1631 H Folate 10.2 08/11/18 04:05 CBC w Diff Cancelled WBC Cancelled Corrected WBC Cancelled RBC Cancelled Hgb Cancelled Hct Cancelled MCV Cancelled MCH Cancelled MCHC Cancelled RDW Cancelled Plt Count Cancelled MPV Cancelled Prelim Diff (Auto) Cancelled Immature Gran % (Auto) Cancelled Neut % (Auto) Cancelled Lymph % (Auto) Cancelled [place] % (Auto) Cancelled Eos % (Auto) Cancelled Baso % (Auto) Cancelled Immature Gran # (Auto) Cancelled Neut # (Auto) Cancelled Lymph # (Auto) Cancelled [place] # (Auto) Cancelled Eos # (Auto) Cancelled Baso # (Auto) Cancelled WBC Differential Cancelled Diff Scan Cancelled Seg Neuts % (Manual) Cancelled Band Neuts % (Manual) Cancelled Lymphocytes % (Manual) Cancelled Atypical Lymphs % (Man) Cancelled Monocytes % (Manual) Cancelled Eosinophils % (Manual) Cancelled Basophils % (Manual) Cancelled Metamyelocytes % (Man) Cancelled Myelocytes % (Man) Cancelled Promyelocytes % (Man) Cancelled Blast Cells % (Manual) Cancelled Plasma Cell % (Manual) Cancelled Other Cells % Cancelled Abs Neuts (Manual) Cancelled Nucleated RBCs/100 WBC Cancelled Differential Comment Cancelled Hypersegmented Neuts Cancelled Smudge Cells Cancelled Toxic Granulation Cancelled Toxic Vacuolation Cancelled Dohle Bodies Cancelled Platelet Estimate Cancelled Platelet Morphology Cancelled RBC Morphology Cancelled Dimorphic RBCs Cancelled Polychromasia Cancelled Basophilic Stippling Cancelled Spherocytes Cancelled Pappenheimer Bodies Cancelled Sickle Cells Cancelled Target Cells Cancelled Tear Drop Cells Cancelled Ovalocytes Cancelled Stomatocytes Cancelled Helmet Cells Cancelled [place] Bodies Cancelled Rex Cells Cancelled Acanthocytes (Spur) Cancelled Rouleaux Cancelled Keratocytes Cancelled ESR Hematology Comments Cancelled Sodium Potassium Chloride Carbon Dioxide Anion Gap BUN Creatinine Estimated GFR Random Glucose Calcium Magnesium Iron TIBC % Saturation Ferritin Total Bilirubin AST ALT Alkaline Phosphatase C-Reactive Protein Total Protein Albumin Lipase Vitamin B12 Folate Medications: Active Medications Generic Name Dose Route Start Last Admin Trade Name Freq PRN Reason Stop Dose Admin Acetaminophen 650 mg 07/30/18 21:53 08/09/18 20:37 Tylenol PO 650 mg Q6H PRN Administration TEMPERATURE > 101 F Hydrocodone Bitart/Acetaminophen 1 tab 08/02/18 07:00 08/11/18 05:34 [place] 5/325 PO 1 tab Q4H PRN Administration FOR PAIN SCALE 2 TO 10 Amlodipine Besylate 5 mg 07/28/18 09:00 08/10/18 08:30 Norvasc PO 5 mg DAILY HITESH Administration Lipase/Protease/Amylase 1 cap 07/28/18 09:30 08/10/18 18:00 Mando Kapoor 60 PO 1 cap TIDPC HITESH Administration Duloxetine HCl 20 mg 07/28/18 09:00 08/10/18 08:30 Cymbalta PO 20 mg DAILY HITESH Administration Sodium Chloride 1,000 mls @ 75 mls/hr 08/03/18 15:02 08/10/18 20:50 Ns Inj IV.CONT Not Given .[id number] HITESH Sodium Chloride 1,000 mls @ 100 mls/hr 08/10/18 13:30 08/11/18 05:35 1/2 Normal Saline Inj IV.CONT Infused .Q10H HITESH Infusion Metoprolol Tartrate 25 mg 07/28/18 09:00 08/10/18 20:50 Lopressor PO Not Given BID HITESH Multi-Ingredient Ointment 1 applic 08/02/18 14:32 08/09/18 14:24 Blistex Lip [place] TOPICAL 1 applic Q1H PRN Administration DRY LIPS Ondansetron HCl 4 mg 07/31/18 22:00 08/08/18 08:57 Zofran Inj IV.PUSH 4 mg Q4HR PRN Administration NAUSEA OR VOMITING Pantoprazole Sodium 40 mg 07/28/18 09:00 08/10/18 20:50 Protonix PO Not Given BID HITESH Sodium Chloride 2 ml 08/10/18 21:00 08/10/18 20:50 Ns Flush IV.FLUSH Not Given BID [facility] Sterile Water 200 ml 07/28/18 12:00 08/11/18 05:35 Free Water G-TUBE 200 ml Q6HR HITESH Administration Sucralfate 1 gm 07/28/18 09:00 08/10/18 17:11 Carafate PO 1 gm TID HITESH Administration Ursodiol 300 mg 07/28/18 09:00 08/10/18 20:50 Actigall PO Not Given BID HITESH Objective Remarks: GENERAL: Well-nourished, well-developed patient. Weak and sleepy. SKIN: Warm and dry. HEAD: Normocephalic. EYES: No scleral icterus. No injection or drainage. NECK: Supple, trachea midline. No JVD or lymphadenopathy. LYMPHATIC: No adenopathy. CARDIOVASCULAR: Regular rate and rhythm without murmurs. RESPIRATORY: Breath sounds equal bilaterally. No accessory muscle use. GASTROINTESTINAL: Abdomen soft, tender diffusely, no rebound or rigidity. EXTREMITIES: No cyanosis, or edema. MUSCULOSKELETAL: Adequate muscle tone. NEUROLOGICAL: No obvious focal deficit. Sleepy but easily arousable. Assessment/Plan (1) Idiopathic pancreatitis Code(s): K85.00 - Idiopathic acute pancreatitis without necrosis or infection Status: Acute (2) Anemia Code(s): D64.9 - Anemia, unspecified Status: Chronic (3) Leukocytosis Code(s): D72.829 - Elevated white blood cell count, unspecified Status: Acute - Plan 1. Chronic leukocytosis, most consistent with a leukemoid reaction. She has had fluctuating white blood cell counts for several years that usually coincide with a hospital admissions and exacerbation of pancreatitis. In February 2017, she had flow cytometry which did not show any abnormal immunophenotype and no evidence of leukemia. JAK2 mutation and FISH study for BCR-ABL at that time was also negative. During this hospital stay, her white blood cell count trended up from 21,000 to 35,000. There was also evidence of bandemia. I think this is most consistent with a reactive process. August 11, 2018. Sed rate and C-reactive protein both significantly elevated Consistent with inflammatory process. This is likely the reason for leukocytosis. I doubt that she has underlying bone marrow disorder. 2. Chronic anemia, which is multifactorial due to chronic kidney disease as well as chronic inflammatory disease. Her hemoglobin trended down from 9.9 to 8.4 during this hospital stay. We will check iron studies and vitamin studies. Can consider giving her Epogen if her hemoglobin continues to trend down. She has no evidence of bleeding at this time. August 11, 2018. Iron study and vitamin study did not show any deficiency. The anemia is secondary to chronic kidney disease and chronic inflammatory disease. Her hemoglobin is stable. 3. Fluctuating thrombocytosis. She has mild thrombocytosis intermittently, again consistent with a reactive process. August 11, 2018. Thrombocytosis is secondary to reactive process. 4. Recurrent pancreatitis. This has been going on for more than 5 years. She recently had an endoscopic retrograde cholangiopancreatography with biliary stent exchange. RECOMMENDATIONS: 1. Continue to monitor CBC. 2. No further hematology intervention planned at this time. 3. I anticipate her white blood cell count will trend down when her pancreatitis subsides. (1) Idiopathic pancreatitis Qualifiers: (2) Anemia Qualifiers: Anemia type: unspecified type Qualified Code(s): D64.9 - Anemia, unspecified
[2018-08-11] MEDS: Metoprolol Tartrate 25 MG Tablet PO SCH ×2 (09:18→21:22)
[2018-08-11] MEDS: Lipase/Protease/Amylase 12/38/60 DR Capsule PO SCH ×3 (09:18→17:49)
[2018-08-11] MEDS: Sucralfate 1 GM Tablet PO SCH ×3 (09:18→17:00)
[2018-08-11] MEDS: amLODIPine 5 MG Tablet PO SCH (09:18)
[2018-08-11] MEDS: Sodium Chloride 0.9% 2 ML Flush BID IV.FLUSH SCH ×2 (09:55→21:22)
[2018-08-11] MEDS: Sod Chloride 0.9% Inj 1,000 ML IV.CONT SCH (09:56)
--- NOTE | 2018-08-11 16:05 | P.PNPAL ---
Reason for Visit Reason for visit: a. To assist with evaluation and management of symptoms including: Pain, nausea , debility b. To assist medical decision maker(s) with: better understanding of current medical conditions; weighing benefits/burdens of medical treatment options; making medical treatment decisions. Subjective Subjective/Interval History: Follow-up medically necessary for symptom management and further clarification of goals of treatment. Patient sleeping, arousable but not willing to converse at this time. Went back to sleep during visit. Does not appear to show any signs of pain at this time. Dr. Cristina consulted on 08/10/18 to render opinion regarding a patient with persistent leukocytosis, recommended checking sedimentation rate and C-reactive protein,as well as iron and vitamin studies. GI Dr. Stewart consulted on for third opinion for further evaluation and management of recurrent idiopathic pancreatitis, recommended obtaining old medical records from [facility] to see what procedures have been performed and if endoscopic ultrasound has not been done yet, doing so may evaluate for pancreatic ductal abnormalities. Physical therapy following with patient and patient continues to refuse getting out of bed. Attempted calling patient`s daughter-with no response, unable to leave voice message. Telephone conversation with patient`s granddaughter Anita Albert. Updated her on patient`s current medical condition. Patient`s granddaughter expressed frustration that patient continues to have abdominal pain and so far source of patient`s problem is not known. Patient`s granddaughter stating that patient may benefit from being transferred to another tertiary facility besides [facility] where she has been before for further evaluation. Patient`s granddaughter feels that patient needs to be discharged to a SNF for rehabilitation when medically discharged. According to patient`s granddaughter, patient has indicated that she does not want to go to rehab and wants to go home with home health care. Patient`s grand daughter who lives with patient is concerned about patient`s safety at home when she is left alone at home when her granddaughter is at work. According to patient`s grand daughter, patient has never completed advance directives or verbally discussed her wishes with her granddaughter. Encouraged granddaughter to have a discussion with the patient regarding her goals of medical treatment and to speak to providers. Case discussed with bedside RN and case management. Family/Friend Interactions: Most of the information obtained from electronic medical records. Patient has had multiple hospitalizations, including multiple replacements of GJ tube. Patient receives overnight continuous feeding through the J-tube. Patient has had multiple biliary stents placed and exchanged. Last ERCP was done on June 30, 2018 with removal of plastic stent, and metallic stent seemed to be migrated inside the duct, cholangiogram revealed the duct to be full of debris' s and stones, S/P sweeping with balloon multiple stones in significant amount of sludge and thick material removed, duct was irrigated and a new 10 [place] 9 cm stent was placed inside the already placed metallic stent. Patient is also had falls. Patient resides at home with her granddaughter. According to patient `s granddaughter, up until recent hospitalizations patient is independent of all her ADLs, she was able to drive herself, do grocery shopping. She ambulates with a walker. Advance Directives Health Care Surrogate Name and Number: HCP: Raj Perez Objective Vital Signs: Vital Signs 08/10/18 16:00 08/10/18 20:00 08/11/18 08:00 Temperature 98.3 F 98.5 F 98.4 F Pulse Rate 112 H 120 H 138 H Respiratory Rate 17 16 17 Blood Pressure 151/79 H 150/77 H 166/94 H Pulse Oximetry 100 95 99 08/11/18 11:53 Temperature 98.5 F Pulse Rate 111 H Respiratory Rate 17 Blood Pressure 140/63 Pulse Oximetry 98 Intake & Output 08/10/18 08/11/18 08/11/18 18:59 06:59 18:59 Intake Total 760 / 760 1000 / 1000 Output Total 375 / 375 Balance 385 / 385 1000 / 1000 Intake: IV 1000 / 1000 1/2 Normal Saline Inj 1,000 ML 1000 / 1000 @ 100 mls/hr IV.CONT .Q10H [facility] Rx#:[id number] Oral 360 / 360 Water Bolus Amount 400 / 400 Output: Urine 225 / 225 Emesis 150 / 150 Other: Date of Last Bowel Movement 08/09/18 08/09/18 08/09/18 # Bowel Movements 1 Physical Exam: CONSTITUTIONAL/GENERAL: This is a chronically ill looking patient, complaining of abdominal pain and nausea. TUBES/LINES/DRAINS: PIV, GJ tube SKIN: No jaundice, rashes, or lesions. Ecchymoses on upper extremities. No wounds seen anteriorly. Skin temperature appropriate. Not diaphoretic. HEAD: Atraumatic. Normocephalic. EYES: Pupils equal and round and reactive. Extraocular motions intact. No scleral icterus. No injection or drainage. Fundi not examined. ENT: Hearing grossly normal. Nose without bleeding or purulent drainage. Moist oral mucosa NECK: Trachea midline. Supple, nontender. CARDIOVASCULAR: Regular rate and rhythm without murmurs, gallops, or rubs. No JVD. Peripheral pulses symmetric. RESPIRATORY/CHEST: Symmetric, unlabored respirations. Clear to auscultation. Breath sounds equal bilaterally. No wheezes, rales, or rhonchi. GASTROINTESTINAL: Abdomen soft, non-tender, nondistended. Somewhat guarding. Bowel sounds present. GENITOURINARY: Without palpable bladder distension. Balderrama catheter in place. MUSCULOSKELETAL: Extremities without clubbing, cyanosis, or edema. No joint tenderness or effusion noted. No calf tenderness. No mottling or clubbing. NEUROLOGICAL: Sleeping, arousable but not conversing. Went back to sleep during visit. Motor and sensory grossly within normal limits. Follows commands. Moves all extremities. PSYCHIATRIC: No obvious anxiety/depression. no apparent hallucinations or other psychotic thought process. Diagnostic Tests Laboratory: Laboratory Results - last 72 hr 08/09/18 08/09/18 08/10/18 03:52 03:52 03:30 CBC w Diff WBC 33.0 H 35.1 H Corrected WBC RBC 2.83 L 2.99 L Hgb 8.0 L 8.4 L Hct 24.6 L 26.5 L MCV 86.9 88.7 MCH 28.4 27.9 MCHC 32.7 31.5 L RDW 19.7 H 19.8 H Plt Count 402 461 H MPV 7.5 7.8 Prelim Diff (Auto) Slide review pending Slide review pending Immature Gran % (Auto) Neut % (Auto) 90.5 H 89.2 H Lymph % (Auto) 4.3 L 5.8 L [place] % (Auto) 4.5 4.4 Eos % (Auto) 0.5 0.3 Baso % (Auto) 0.2 0.3 Immature Gran # (Auto) Neut # (Auto) 29.9 H 31.4 H Lymph # (Auto) 1.4 2.0 [place] # (Auto) 1.5 H 1.5 H Eos # (Auto) 0.2 0.1 Baso # (Auto) 0.1 0.1 WBC Differential Manual diff final Manual diff final Diff Scan Seg Neuts % (Manual) 87 H 84 H Band Neuts % (Manual) 5 6 Lymphocytes % (Manual) 5 L 7 L Atypical Lymphs % (Man) Monocytes % (Manual) 2 3 Eosinophils % (Manual) Basophils % (Manual) Metamyelocytes % (Man) 1 Myelocytes % (Man) Promyelocytes % (Man) Blast Cells % (Manual) Plasma Cell % (Manual) Other Cells % Abs Neuts (Manual) 30.7 H 31.6 H Nucleated RBCs/100 WBC Differential Comment . . Hypersegmented Neuts Smudge Cells Toxic Granulation Toxic Vacuolation Dohle Bodies Platelet Estimate Normal High H Platelet Morphology Normal Normal RBC Morphology Dimorphic RBCs Polychromasia Basophilic Stippling Spherocytes Pappenheimer Bodies Sickle Cells Target Cells 1+ H Tear Drop Cells Ovalocytes Stomatocytes Helmet Cells Park-Oxly Bodies [place] Cells Acanthocytes (Spur) Rouleaux Keratocytes ESR Hematology Comments Sodium 151 H Potassium 4.9 Chloride 117 H Carbon Dioxide 21.6 Anion Gap 12 BUN 24 H Creatinine 2.89 H Estimated GFR 19 L Random Glucose 72 L Calcium 8.0 L Magnesium Iron TIBC % Saturation Ferritin Total Bilirubin 0.3 AST 8 L ALT 8 L Alkaline Phosphatase 150 H C-Reactive Protein Total Protein 6.7 D Albumin 1.8 L Lipase 596 H Vitamin B12 Folate 08/10/18 08/11/18 08/11/18 03:30 04:05 04:05 CBC w Diff WBC 36.4 H Corrected WBC RBC 2.88 L Hgb 8.0 L Hct 24.8 L MCV 86.0 MCH 27.9 MCHC 32.4 RDW 19.7 H Plt Count 478 H MPV 7.7 Prelim Diff (Auto) Slide review pending Immature Gran % (Auto) Neut % (Auto) 88.3 H Lymph % (Auto) 5.9 L [place] % (Auto) 4.4 Eos % (Auto) 0.6 Baso % (Auto) 0.8 Immature Gran # (Auto) Neut # (Auto) 32.1 H Lymph # (Auto) 2.1 [place] # (Auto) 1.6 H Eos # (Auto) 0.2 Baso # (Auto) 0.3 H WBC Differential Manual diff final Diff Scan Seg Neuts % (Manual) 86 H Band Neuts % (Manual) 1 Lymphocytes % (Manual) 7 L Atypical Lymphs % (Man) Monocytes % (Manual) 5 Eosinophils % (Manual) 1 Basophils % (Manual) Metamyelocytes % (Man) Myelocytes % (Man) Promyelocytes % (Man) Blast Cells % (Manual) Plasma Cell % (Manual) Other Cells % Abs Neuts (Manual) 31.7 H Nucleated RBCs/100 WBC 1 H Differential Comment . Hypersegmented Neuts Smudge Cells Toxic Granulation Toxic Vacuolation Present H Dohle Bodies Platelet Estimate Normal Platelet Morphology Normal RBC Morphology Dimorphic RBCs Polychromasia Basophilic Stippling Spherocytes Occ H Pappenheimer Bodies Sickle Cells Target Cells Tear Drop Cells Ovalocytes Stomatocytes Helmet Cells Park-Oxly Bodies [place] Cells Acanthocytes (Spur) Rouleaux Keratocytes Occ H ESR Greater than 140 H Hematology Comments Sodium 147 H Potassium 4.8 Chloride 115 H Carbon Dioxide 18.9 L Anion Gap 13 BUN 25 H Creatinine 3.37 H Estimated GFR 16 L Random Glucose 114 H Calcium 8.4 L Magnesium Iron 17 L TIBC 59 L % Saturation 28.9 Ferritin 950 H Total Bilirubin 0.3 AST 18 ALT 14 Alkaline Phosphatase 162 H C-Reactive Protein 24.80 H Total Protein 7.3 D Albumin 1.8 L Lipase 459 H 531 H Vitamin B12 1631 H Folate 10.2 08/11/18 08/11/18 04:05 04:05 CBC w Diff Cancelled WBC Cancelled Corrected WBC Cancelled RBC Cancelled Hgb Cancelled Hct Cancelled MCV Cancelled MCH Cancelled MCHC Cancelled RDW Cancelled Plt Count Cancelled MPV Cancelled Prelim Diff (Auto) Cancelled Immature Gran % (Auto) Cancelled Neut % (Auto) Cancelled Lymph % (Auto) Cancelled [place] % (Auto) Cancelled Eos % (Auto) Cancelled Baso % (Auto) Cancelled Immature Gran # (Auto) Cancelled Neut # (Auto) Cancelled Lymph # (Auto) Cancelled [place] # (Auto) Cancelled Eos # (Auto) Cancelled Baso # (Auto) Cancelled WBC Differential Cancelled Diff Scan Cancelled Seg Neuts % (Manual) Cancelled Band Neuts % (Manual) Cancelled Lymphocytes % (Manual) Cancelled Atypical Lymphs % (Man) Cancelled Monocytes % (Manual) Cancelled Eosinophils % (Manual) Cancelled Basophils % (Manual) Cancelled Metamyelocytes % (Man) Cancelled Myelocytes % (Man) Cancelled Promyelocytes % (Man) Cancelled Blast Cells % (Manual) Cancelled Plasma Cell % (Manual) Cancelled Other Cells % Cancelled Abs Neuts (Manual) Cancelled Nucleated RBCs/100 WBC Cancelled Differential Comment Cancelled Hypersegmented Neuts Cancelled Smudge Cells Cancelled Toxic Granulation Cancelled Toxic Vacuolation Cancelled Dohle Bodies Cancelled Platelet Estimate Cancelled Platelet Morphology Cancelled RBC Morphology Cancelled Dimorphic RBCs Cancelled Polychromasia Cancelled Basophilic Stippling Cancelled Spherocytes Cancelled Pappenheimer Bodies Cancelled Sickle Cells Cancelled Target Cells Cancelled Tear Drop Cells Cancelled Ovalocytes Cancelled Stomatocytes Cancelled Helmet Cells Cancelled Prak-Oxly Bodies Cancelled Rex Cells Cancelled Acanthocytes (Spur) Cancelled Rouleaux Cancelled Keratocytes Cancelled ESR Hematology Comments Cancelled Sodium 145 Potassium 4.2 Chloride 113 H Carbon Dioxide 22.6 Anion Gap 9 BUN 30 H Creatinine 3.54 H Estimated GFR 15 L Random Glucose 114 H Calcium 7.9 L Magnesium 1.5 Iron TIBC % Saturation Ferritin Total Bilirubin 0.2 AST 9 L ALT 10 Alkaline Phosphatase 159 H C-Reactive Protein Total Protein 6.8 Albumin 1.6 L Lipase Vitamin B12 Folate Result Diagrams: 08/11/18 04:05 08/11/18 04:05 Imaging: Abdomen/Pelvis CT 07/28/18 01:18 CONCLUSION: 1. Postoperative changes of biliary stent with biliary drainage catheter passing through the stent. Gastrojejunostomy tube again noted. 2. Mild stranding of fat around the pancreas could indicate a mild pancreatitis. 3. 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 GI Procedure 08/02/18 00:00 CONCLUSION: A biliary stent has been placed. It is in good position. There is good filling of the hepatic ducts. Tube Check 08/08/18 00:00 CONCLUSION: 1. Uncomplicated tube injection as above. The tube was not exchanged. Procedures: 08/02/18-ERCP with stent exchange 08/08/18-GJ tube check by interventional radiology Assessment and Plan - Disease Oriented Problem List (1) Leukocytosis (2) Hypernatremia (3) Hypokalemia (4) HTN (hypertension) (5) CKD (chronic kidney disease) (6) GERD (gastroesophageal reflux disease) (7) Anemia - Symptom Scale (1) Pain 0-10 Scale: Unable to quantify (2) Nausea 0-10 Scale: Unable to quantify Comment: Patient complaining of nausea. (3) Debility 0-10 Scale: Unable to quantify Comment: Progressive. Pertinent Non-Medical Issues: Psychosocial: Patient is retired. She had 2 daughters and one of her children is . She lives with her granddaughter. Spiritual: Patient is [employer] Legal:Never completed advance directives. Ethical issues impacting care: None identified at this time Important Contacts: Daughter Caitlyn Perez [phone] Granddaughter Anita Albert [phone] Prognosis: Mrs Larsen is an 82-year-old female with a history significant for recurrent idiopathic pancreatitis, GERD, hypertension, anemia, chronic kidney disease and has a gastrojejunal tube. Patient has been hospitalized numerous times for issues regarding pain control related to recurrent pancreatitis. The last admission was from 06/291813/10/18 due to acute kidney injury, idiopathic pancreatitis and exchange of GJ tube on 07/25/18. Patient presented to the ER on 07/28/18 with complaints of worsening abdominal pain associated with nausea. Clinical course complicated with abdominal pain, persistent leukocytosis, elevated lipase and imaging consistent with acute pancreatitis. Given ongoing multiple comorbidities and multiple hospitalizations, patient remains at high risk for further complications, deterioration and decline. Code Status: Full Code Plan: PLAN: Legal decision maker: Patient is currently oriented to self, place and situation. Appears to be able to participate in medical decision making. According to [place] statute, in the event that patient is incapacitated, her only daughter Caitlyn Perez will serve as her healthcare proxy. Goals: Aggressive. Per brief conversation with patient 08/10/18, she wants everything done for her including resuscitation, intubation and placement on a mechanical ventilator however despite choosing aggressive treatment patient has been refusing to participate in physical therapy and also going to rehabilitation after she is medically cleared. Per telephone conversation with patients granddaughter who lives with patient, she feels patient is giving up on herself and she would want patient to go to rehabilitation. Patient`s granddaughter expressed frustration that patient continues to have abdominal pain and so far source of patient`s problem is not known. Patient`s granddaughter is stating that patient may benefit from being transferred to another tertiary facility besides [facility] where she has been before for further evaluation of this ongoing problem. CODE STATUS: Full code SYMPTOMS: * Pain: Patient has history of idiopathic pancreatitis. Came in complaining with abdominal pain which appears to be chronic. Lipase is elevated. Patient received a one-time dose of 2 mg morphine sulfate IV push on 08/10/18. patient is currently on hydrocodone/acetaminophen 5/325 every 4hrs prn. Pain medication appendectomy is adequate at this time. * Nausea: Patient has history of pancreatitis. She came in complaining with nausea. Patient is mostly fed via GJ tube. ERCP on 08/02 with stent replacement. Zofran 4mg IVP Q 6 hrs prn. Medication appears adequate. * Debility: Patient has had multiple hospitalizations with complaints of abdominal pain. Patient ambulates with a walker at home. PT consulted, recommending PT at rehab. Patient refusing to participate in PT. Palliative care will continue to follow the patient during hospital course as condition evolves, to assist patient/decision-maker with understanding of their medical conditions, weighing benefits/burdens of treatment options, for clarification of goals of treatment. Additionally will assist with any symptoms of palliative concern Attestation Attestation: To help prompt me to consider important information that might be impacting today's encounter and assessment, information from prior notes written by myself or my colleagues may have been "brought forward" into today's note. My signature on this note, however, is an attestation that I personally performed the exam, history, and/or decision-making noted today, and, unless otherwise indicated, the interactions with patient, family, and staff as well as the review of records all occurred today. I also attest that the listed assessment and stated plan reflect my best clinical judgment today based on the combination of historical information, prior notes, and today's exam/ interactions. When time spent is documented, it refers only to time spent today by the signer, or if indicated, combined time spent today by collaborating physician/nurse practitioner.
--- NOTE | 2018-08-11 17:06 | P.PNIM ---
Physical Exam Vital signs: Vital Signs 08/10/18 20:00 08/11/18 08:00 08/11/18 11:53 Temperature 98.5 F 98.4 F 98.5 F Pulse Rate 120 H 138 H 111 H Respiratory Rate 16 17 17 Blood Pressure 150/77 H 166/94 H 140/63 Pulse Oximetry 95 99 98 08/11/18 15:44 08/11/18 15:48 Temperature 98.9 F Pulse Rate 97 H Respiratory Rate 18 18 Blood Pressure 148/68 H Pulse Oximetry 100 Intake & Output 08/10/18 08/11/18 08/11/18 18:59 06:59 18:59 Intake Total 760 / 760 1000 / 1000 Output Total 375 / 375 Balance 385 / 385 1000 / 1000 Intake: IV 1000 / 1000 1/2 Normal Saline Inj 1,000 ML 1000 / 1000 @ 100 mls/hr IV.CONT .Q10H [facility] Rx#:[id number] Oral 360 / 360 Water Bolus Amount 400 / 400 Output: Urine 225 / 225 Emesis 150 / 150 Other: Date of Last Bowel Movement 08/09/18 08/09/18 08/09/18 # Bowel Movements 1 Results - Labs CBC & Chem 7: 08/12/18 04:14 08/12/18 04:14 Laboratory Results - last 24 hr 08/11/18 08/11/18 08/11/18 04:05 04:05 04:05 CBC w Diff WBC 36.4 H Corrected WBC RBC 2.88 L Hgb 8.0 L Hct 24.8 L MCV 86.0 MCH 27.9 MCHC 32.4 RDW 19.7 H Plt Count 478 H MPV 7.7 Prelim Diff (Auto) Slide review pending Immature Gran % (Auto) Neut % (Auto) 88.3 H Lymph % (Auto) 5.9 L [place] % (Auto) 4.4 Eos % (Auto) 0.6 Baso % (Auto) 0.8 Immature Gran # (Auto) Neut # (Auto) 32.1 H Lymph # (Auto) 2.1 [place] # (Auto) 1.6 H Eos # (Auto) 0.2 Baso # (Auto) 0.3 H WBC Differential Manual diff final Diff Scan Seg Neuts % (Manual) 86 H Band Neuts % (Manual) 1 Lymphocytes % (Manual) 7 L Atypical Lymphs % (Man) Monocytes % (Manual) 5 Eosinophils % (Manual) 1 Basophils % (Manual) Metamyelocytes % (Man) Myelocytes % (Man) Promyelocytes % (Man) Blast Cells % (Manual) Plasma Cell % (Manual) Other Cells % Abs Neuts (Manual) 31.7 H Nucleated RBCs/100 WBC 1 H Differential Comment . Hypersegmented Neuts Smudge Cells Toxic Granulation Toxic Vacuolation Present H Dohle Bodies Platelet Estimate Normal Platelet Morphology Normal RBC Morphology Dimorphic RBCs Polychromasia Basophilic Stippling Spherocytes Occ H Pappenheimer Bodies Sickle Cells Target Cells Tear Drop Cells Ovalocytes Stomatocytes Helmet Cells [place] Bodies [place] Cells Acanthocytes (Spur) Rouleaux Keratocytes Occ H ESR Greater than 140 H Hematology Comments Sodium 145 Potassium 4.2 Chloride 113 H Carbon Dioxide 22.6 Anion Gap 9 BUN 30 H Creatinine 3.54 H Estimated GFR 15 L Random Glucose 114 H Calcium 7.9 L Magnesium 1.5 Iron 17 L TIBC 59 L % Saturation 28.9 Ferritin 950 H Total Bilirubin 0.2 AST 9 L ALT 10 Alkaline Phosphatase 159 H C-Reactive Protein 24.80 H Total Protein 6.8 Albumin 1.6 L Lipase 531 H Vitamin B12 1631 H Folate 10.2 08/11/18 04:05 CBC w Diff Cancelled WBC Cancelled Corrected WBC Cancelled RBC Cancelled Hgb Cancelled Hct Cancelled MCV Cancelled MCH Cancelled MCHC Cancelled RDW Cancelled Plt Count Cancelled MPV Cancelled Prelim Diff (Auto) Cancelled Immature Gran % (Auto) Cancelled Neut % (Auto) Cancelled Lymph % (Auto) Cancelled [place] % (Auto) Cancelled Eos % (Auto) Cancelled Baso % (Auto) Cancelled Immature Gran # (Auto) Cancelled Neut # (Auto) Cancelled Lymph # (Auto) Cancelled [place] # (Auto) Cancelled Eos # (Auto) Cancelled Baso # (Auto) Cancelled WBC Differential Cancelled Diff Scan Cancelled Seg Neuts % (Manual) Cancelled Band Neuts % (Manual) Cancelled Lymphocytes % (Manual) Cancelled Atypical Lymphs % (Man) Cancelled Monocytes % (Manual) Cancelled Eosinophils % (Manual) Cancelled Basophils % (Manual) Cancelled Metamyelocytes % (Man) Cancelled Myelocytes % (Man) Cancelled Promyelocytes % (Man) Cancelled Blast Cells % (Manual) Cancelled Plasma Cell % (Manual) Cancelled Other Cells % Cancelled Abs Neuts (Manual) Cancelled Nucleated RBCs/100 WBC Cancelled Differential Comment Cancelled Hypersegmented Neuts Cancelled Smudge Cells Cancelled Toxic Granulation Cancelled Toxic Vacuolation Cancelled Dohle Bodies Cancelled Platelet Estimate Cancelled Platelet Morphology Cancelled RBC Morphology Cancelled Dimorphic RBCs Cancelled Polychromasia Cancelled Basophilic Stippling Cancelled Spherocytes Cancelled Pappenheimer Bodies Cancelled Sickle Cells Cancelled Target Cells Cancelled Tear Drop Cells Cancelled Ovalocytes Cancelled Stomatocytes Cancelled Helmet Cells Cancelled [place] Bodies Cancelled [place] Cells Cancelled Acanthocytes (Spur) Cancelled Rouleaux Cancelled Keratocytes Cancelled ESR Hematology Comments Cancelled Sodium Potassium Chloride Carbon Dioxide Anion Gap BUN Creatinine Estimated GFR Random Glucose Calcium Magnesium Iron TIBC % Saturation Ferritin Total Bilirubin AST ALT Alkaline Phosphatase C-Reactive Protein Total Protein Albumin Lipase Vitamin B12 Folate Assessment and Plan - Assessment (1) Idiopathic pancreatitis Code(s): K85.00 - Idiopathic acute pancreatitis without necrosis or infection Status: Acute Plan: Idiopathic pancreatitis - Patient is an 82 y/o AAF with recurrent idiopathic pancreatitis. She has been hospitalized numerous times for issues with pain control related to recurrent pancreatitis. Her last admission was from 07/13/18 to 07/26/18 due to WAYNE, idiopathic pancreatitis and had her GJ tube exchanged 07/25/18. - Patient again presented to the ER last night due to worsening abd pain associated with nausea but no vomiting. Patient reports that she always had mild epigastric pain, but yesterday evening it again became more severe and is associated with nausea but not vomiting. Denies fever or chills, chest pain, cough, difficulty flushing J tube, or diarrhea. - On admission WBC 21.6, BUN 44, creatinine 2.60 and lipase 2673. - CT abd/pelvis was done and revealed: 1. Postoperative changes of biliary stent with biliary drainage catheter passing through the stent. Gastrojejunostomy tube again noted. 2. Mild stranding of fat around the pancreas could indicate a mild pancreatitis. 3. 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 - PO pain medication as needed - Appreciate input from GI. - Pt underwent repeat ERCP with stent exchange, 08/02/18 (ERCP and stent exchange cancelled on 08/01 as patient's daughter needed to talk with Dr. Ortega prior to signing consent.). According to the procedure report, the common bile duct had multiple filling defects which were able to be cleaned out and once cleaned he was able to clearly see the ingrowth into the old metal stent and so a 10 [place] 40 mm stent was placed within the first metal stent and it protruded about a centimeter into the duodenum with good drainage noted. The intrahepatics appeared to be unremarkable - Dietary recommended TF with Suplena with goal rate 40mls/hr, orders placed for this for discharge as pt was previously on Jevity but complained of diarrhea. - Pts lipase started to trend slightly up on 08/07 and 08/08 - WBC 21.6 (07/28), 24.9 (07/29), 22.6 (07/30), 24 (07/31), 22.1 (08/02), 31.4 (08/03) , 29.2 (08/04), 23.5 (08/05), 34.9 (08/08), 33.0 (08/09) - lipase 2673 (07/28), 2471 (07/29), 758 (07/30), 215 (08/10), 155 (08/02), 730 (08/03 ), 509 (08/04), 423 (08/05), 708 (08/07), 768 (08/08), 596 (08/09), 459 (08/10/18) - Repeat labs in AM - On 08/07 the pts nurse reported that when flushing the J-tube that the water was coming up through the pts insertion site in the skin. - GJ tube reevaluated by Dr. Lala (08/08/18) G and J ports both patent. No findings of leakage from tube or through dermatotomy. Patient does appear to have some stasis of material in gastric lumen probably secondary to gastroparesis. Placed G-port to gravity drainage. Discussed with patients nurse on floor but she had only received report of tube leaking and did not witness it herself. Discussed the decompression of the gastric lumen with gravity drainage. Tube o/w OK so no change. - continue TF by J-tube - continue clears - norco prn - SCDs for DVT prophylaxis - request Palliative Medicine for clarification of goals. - Pt/daughter request second GI opinion. Dr. Bravo informed. Case d/w Dr. Stewart. He will consult. Chronic kidney failure - Pt with baseline stage 3 CKD, pt follows with Dr. Melara - avoid nephrotoxic agents - Per RN several OTC Advil found hidden in a tissue box at patient's bedside. Discussed with patient and nurse that she should not be taking Advil given her renal function and should not be taking outside medications - Cr 3.37 (08/10) - continue IVFs - repeat CMP in AM Hypernatremia - improving - sodium 151 (08/09), 147 (08/10) - patient has not received free water flush due to concern regarding GJ tube, discussed with nurse who will resume free water flush - recheck sodium in AM Leukocytosis, persistent - [facility] Medical team has cared for Ms. Larsen for several years and many different admissions. - Pt tends to have marked persistent leukocytosis during her admissions which correlated to flares of her idiopathic pancreatitis - paradoxically, pt's leukocytosis has improved in the past, as well as her clinical condition with steroids - possibly d/t to a reactive process - Pt has had NO fever above 99.9F this entire admission - There is NO indication of infection. Pt has NO c/o cough, SOB, or dysuria. There is NO diarrhea. - obtain peripheral smear - doubt underlying leukemic process, and this has been previously considered. Case d/w Dr. Perea. He will consult. HTN (hypertension) - Cont. home meds - Monitor GERD (gastroesophageal reflux disease) - PPI Hypomagnesemia - replete Hypokalemia - Improved with replacement anemia - d/t chronic disease, stable. - this diagnosis has been explored during prior hospitalizations and d/w Hematology - anemia felt to be d/t underlying disease processes - observe (1) Idiopathic pancreatitis Qualifiers:
[2018-08-11] MEDS: MethylPREDNISolone Sod Succinate Inj 125 MG/2 ML Vial IV.PUSH SCH (18:42)
[2018-08-12] MEDS: Sodium Chloride 0.45 % Inj 1,000 ML IV.CONT SCH ×2 (00:56→06:48)
[2018-08-12] MEDS: MethylPREDNISolone Sod Succinate Inj 125 MG/2 ML Vial IV.PUSH SCH ×4 (00:56→17:37)
[2018-08-12] MEDS: Sod Chloride 0.9% Inj 1,000 ML IV.CONT SCH ×3 (02:20→17:46)
[2018-08-12 05:40] LABS: Hematocrit 23.9 % (35.0-46.0); Hemoglobin 7.7 gm/dL (11.6-15.3); Mean Corpuscular HGB Conc 32.2 % (32.0-36.0); Mean Corpuscular Hemoglobin 27.7 pg (27.0-34.0); Mean Platelet Volume 8.2 fL (7.0-11.0); Platelet Count 423 th/mm3 (150-450); Red Blood Count 2.78 mil/mm3 (4.00-5.30); Red Cell Distribution Width 19.6 % (11.6-17.2); White Blood Count 40.6 th/mm3 (4.0-11.0)
[2018-08-12 05:41] LABS: Calcium 7.7 mg/dL (8.5-10.1); Carbon Dioxide 20.1 meq/L (21.0-32.0); Potassium 4.7 meq/L (3.5-5.1)
[2018-08-12 07:04] LABS: Acanthocytes Occ; Lymphocytes 2 % (9-44); Spherocytes Occ
[2018-08-12 07:05] LABS: Platelet Estimate Normal (Normal); Platelet Morphology Clumped (Normal)
--- NOTE | 2018-08-12 07:31 | P.PNONC ---
Subjective Interval history: Patient was started on Solu-Medrol yesterday. She is feeling a little better today. She still has abdominal pain but slightly better. She still has loose stool. She has no chest pain or shortness of breath. She remains afebrile. Objective Vital Signs/Intake & Output: Vital Signs 08/11/18 08:00 08/11/18 11:53 08/11/18 15:44 Temperature 98.4 F 98.5 F Pulse Rate 138 H 111 H Respiratory Rate 17 17 18 Blood Pressure 166/94 H 140/63 Pulse Oximetry 99 98 08/11/18 15:48 08/11/18 20:00 08/12/18 00:00 Temperature 98.9 F 98.4 F 98.2 F Pulse Rate 97 H 104 H 100 H Respiratory Rate 18 20 20 Blood Pressure 148/68 H 147/74 H 149/78 H Pulse Oximetry 100 100 100 Intake & Output 08/11/18 08/12/18 08/12/18 18:59 06:59 18:59 Intake Total 420 / 420 1640 / 1640 Balance 420 / 420 1640 / 1640 Weight 60 kg Intake: IV 1000 / 1000 1/2 Normal Saline Inj 1,000 ML 1000 / 1000 @ 100 mls/hr IV.CONT .Q10H [facility] Rx#:[id number] Oral 420 / 420 100 / 100 Tube Feeding 480 / 480 Tube Irrigant 60 / 60 Other: # Voids 6 5 Date of Last Bowel Movement 08/09/18 08/09/18 Result Diagrams: 08/12/18 04:14 08/12/18 04:14 Laboratory Results: Laboratory Results - last 24 hr 08/12/18 08/12/18 04:14 04:14 WBC 40.6 H RBC 2.78 L Hgb 7.7 L Hct 23.9 L MCV 86.0 MCH 27.7 MCHC 32.2 RDW 19.6 H Plt Count 423 MPV 8.2 Prelim Diff (Auto) Manual diff required WBC Differential Manual diff final Seg Neuts % (Manual) 93 H Band Neuts % (Manual) 5 Lymphocytes % (Manual) 2 L Abs Neuts (Manual) 39.8 H Differential Comment . Platelet Estimate Normal Platelet Morphology Clumped H Spherocytes Occ H Acanthocytes (Spur) Occ H Keratocytes Occ H Sodium 136 Potassium 4.7 Chloride 105 D Carbon Dioxide 20.1 L Anion Gap 11 BUN 32 H Creatinine 3.48 H Estimated GFR 15 L Random Glucose 197 H Calcium 7.7 L Lipase 271 Medications: Active Medications Generic Name Dose Route Start Last Admin Trade Name Freq PRN Reason Stop Dose Admin Acetaminophen 650 mg 07/30/18 21:53 08/09/18 20:37 Tylenol PO 650 mg Q6H PRN Administration TEMPERATURE > 101 F Hydrocodone Bitart/Acetaminophen 1 tab 08/02/18 07:00 08/12/18 06:00 [place] 5/325 PO 1 tab Q4H PRN Administration FOR PAIN SCALE 2 TO 10 Amlodipine Besylate 5 mg 07/28/18 09:00 08/11/18 09:18 Norvasc PO 5 mg DAILY HITESH Administration Lipase/Protease/Amylase 1 cap 07/28/18 09:30 08/11/18 17:49 Mando Kapoor PO Not Given TIDPC HITESH Duloxetine HCl 20 mg 07/28/18 09:00 08/11/18 09:18 Cymbalta PO 20 mg DAILY HITESH Administration Sodium Chloride 1,000 mls @ 75 mls/hr 08/03/18 15:02 08/12/18 02:20 Ns Inj IV.CONT 75 mls/hr .[id number] HITESH Administration Sodium Chloride 1,000 mls @ 100 mls/hr 08/10/18 13:30 08/12/18 06:48 1/2 Normal Saline Inj IV.CONT Not Given .Q10H HITESH Methylprednisolone Sodium Succinate 60 mg 08/11/18 18:00 08/12/18 05:50 Solumedrol Inj IV.PUSH 60 mg Q6HR HITESH Administration Metoprolol Tartrate 25 mg 07/28/18 09:00 08/11/18 21:22 Lopressor PO 25 mg BID HITESH Administration Multi-Ingredient Ointment 1 applic 08/02/18 14:32 08/09/18 14:24 Blistex Lip [place] TOPICAL 1 applic Q1H PRN Administration DRY LIPS Ondansetron HCl 4 mg 07/31/18 22:00 08/08/18 08:57 Zofran Inj IV.PUSH 4 mg Q4HR PRN Administration NAUSEA OR VOMITING Pantoprazole Sodium 40 mg 07/28/18 09:00 08/11/18 21:23 Protonix PO 40 mg BID HITESH Administration Sodium Chloride 2 ml 08/10/18 21:00 09/27/18 21:22 Ns Flush IV.FLUSH Not Given BID HITESH Sterile Water 200 ml 07/28/18 12:00 08/12/18 05:51 Free Water G-TUBE 200 ml Q6HR H[facility]ESH Administration Sucralfate 1 gm 07/28/18 09:00 08/11/18 17:00 Carafate PO 1 gm TID HITESH Administration Ursodiol 300 mg 07/28/18 09:00 08/11/18 21:23 Actigall PO 300 mg BID HITESH Administration Objective Remarks: GENERAL: Well-nourished, well-developed patient. Week. SKIN: Warm and dry. HEAD: Normocephalic. EYES: No scleral icterus. No injection or drainage. NECK: Supple, trachea midline. No JVD or lymphadenopathy. LYMPHATIC: No adenopathy. CARDIOVASCULAR: Regular rate and rhythm without murmurs. RESPIRATORY: Breath sounds equal bilaterally. No accessory muscle use. GASTROINTESTINAL: Abdomen soft, tender in the mid abdomen. No rebound or rigidity. Positive bowel sounds. EXTREMITIES: No cyanosis, or edema. MUSCULOSKELETAL: Adequate muscle tone. NEUROLOGICAL: No obvious focal deficit. Awake, alert, and oriented x3. PSYCHIATRIC: Appropriate mood and affect; insight and judgment normal. Assessment/Plan (1) Idiopathic pancreatitis Code(s): K85.00 - Idiopathic acute pancreatitis without necrosis or infection Status: Acute (2) Anemia Code(s): D64.9 - Anemia, unspecified Status: Chronic (3) Leukocytosis Code(s): D72.829 - Elevated white blood cell count, unspecified Status: Acute - Plan 1. Chronic leukocytosis, most consistent with a leukemoid reaction. She has had fluctuating white blood cell counts for several years that usually coincide with a hospital admissions and exacerbation of pancreatitis. In February 2017, she had flow cytometry which did not show any abnormal immunophenotype and no evidence of leukemia. JAK2 mutation and FISH study for BCR-ABL at that time was also negative. During this hospital stay, her white blood cell count trended up from 21,000 to 35,000. There was also evidence of bandemia. I think this is most consistent with a reactive process. August 11, 2018. Sed rate and C-reactive protein both significantly elevated Consistent with inflammatory process. This is likely the reason for leukocytosis. I doubt that she has underlying bone marrow disorder. August 12, 2018. WBC trended up to 40.6. This may be due to the steroid which was started yesterday. 2. Chronic anemia, which is multifactorial due to chronic kidney disease as well as chronic inflammatory disease. Her hemoglobin trended down from 9.9 to 8.4 during this hospital stay. We will check iron studies and vitamin studies. Can consider giving her Epogen if her hemoglobin continues to trend down. She has no evidence of bleeding at this time. August 11, 2018. Iron study and vitamin study did not show any deficiency. The anemia is secondary to chronic kidney disease and chronic inflammatory disease. Her hemoglobin is stable. August 04, 2018. Hemoglobin stable at 7.7. No evidence of bleeding. 3. Fluctuating thrombocytosis. She has mild thrombocytosis intermittently, again consistent with a reactive process. August 11, 2018. Thrombocytosis is secondary to reactive process. August 12, 2018. Platelet count trended back down to 423,000. 4. Recurrent pancreatitis. This has been going on for more than 5 years. She recently had an endoscopic retrograde cholangiopancreatography with biliary stent exchange. She was started on Solu-Medrol and her pain seems to be better this morning. RECOMMENDATIONS: 1. Continue to monitor CBC. 2. No further hematology intervention planned at this time. 3. I anticipate her white blood cell count will trend down when her pancreatitis subsides. (1) Idiopathic pancreatitis Qualifiers: (2) Anemia Qualifiers: Anemia type: unspecified type Qualified Code(s): D64.9 - Anemia, unspecified
[2018-08-12] MEDS: Sucralfate 1 GM Tablet PO SCH ×3 (08:50→17:38)
[2018-08-12] MEDS: amLODIPine 5 MG Tablet PO SCH (08:50)
[2018-08-12] MEDS: Metoprolol Tartrate 25 MG Tablet PO SCH ×2 (08:50→20:07)
[2018-08-12] MEDS: Lipase/Protease/Amylase 12/38/60 DR Capsule PO SCH ×3 (08:50→17:38)
[2018-08-12] MEDS: Sodium Chloride 0.9% 2 ML Flush BID IV.FLUSH SCH ×2 (08:51→20:08)
--- NOTE | 2018-08-12 14:17 | P.PNIM ---
Subjective Interval history: Pt less painful today & appears in better spirits. Nursing reports that J-tube is NOT flushing. Physical Exam Vital signs: 08/12/18 00:00 08/12/18 08:00 08/12/18 12:00 Temperature 98.2 F 98.0 F 98.2 F Pulse Rate 100 H 91 H 88 Respiratory Rate 20 18 18 Blood Pressure 149/78 H 140/86 148/77 H Pulse Oximetry 100 100 99 Narrative: GENERAL: This is a 82 year old female, well-developed patient, in no apparent distress. CARDIO: Regular RESP: CTA bilaterally. ABD: +BS, soft, nontender, nondistended. GJ tube in place, no drainage or puss noted at the insertion site EXT: No edema. Results - Labs CBC & Chem 7: 08/12/18 04:14 08/12/18 04:14 - Imaging Abdomen/Pelvis CT 07/28/18 01:18 1. Postoperative changes of biliary stent with biliary drainage catheter passing through the stent. Gastrojejunostomy tube again noted. 2. Mild stranding of fat around the pancreas could indicate a mild pancreatitis. 3. 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 GI Procedure 08/02/18 00:00 A biliary stent has been placed. It is in good position. There is good filling of the hepatic ducts. Tube Check 08/08/18 00:00 1. Uncomplicated tube injection as above. The tube was not exchanged. Assessment and Plan - Assessment (1) Idiopathic pancreatitis Code(s): K85.00 - Idiopathic acute pancreatitis without necrosis or infection Status: Acute Plan: Idiopathic pancreatitis - Patient is an 82 y/o AAF with recurrent idiopathic pancreatitis. She has been hospitalized numerous times for issues with pain control related to recurrent pancreatitis. Her last admission was from 07/13/18 to 07/26/18 due to WAYNE, idiopathic pancreatitis and had her GJ tube exchanged 07/25/18. - Patient again presented to the ER last night due to worsening abd pain associated with nausea but no vomiting. Patient reports that she always had mild epigastric pain, but yesterday evening it again became more severe and is associated with nausea but not vomiting. Denies fever or chills, chest pain, cough, difficulty flushing J tube, or diarrhea. - On admission WBC 21.6, BUN 44, creatinine 2.60 and lipase 2673. - CT abd/pelvis was done and revealed: 1. Postoperative changes of biliary stent with biliary drainage catheter passing through the stent. Gastrojejunostomy tube again noted. 2. Mild stranding of fat around the pancreas could indicate a mild pancreatitis. 3. 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 - PO pain medication as needed - Appreciate input from GI. - Pt underwent repeat ERCP with stent exchange, 08/02/18 (ERCP and stent exchange cancelled on 08/01 as patient's daughter needed to talk with Dr. Ortega prior to signing consent.). According to the procedure report, the common bile duct had multiple filling defects which were able to be cleaned out and once cleaned he was able to clearly see the ingrowth into the old metal stent and so a 10 [place] 40 mm stent was placed within the first metal stent and it protruded about a centimeter into the duodenum with good drainage noted. The intrahepatics appeared to be unremarkable - Dietary recommended TF with Suplena with goal rate 40mls/hr, orders placed for this for discharge as pt was previously on Jevity but complained of diarrhea. - Pts lipase started to trend slightly up on 08/07 and 08/08 - WBC 21.6 (07/28), 24.9 (07/29), 22.6 (07/30), 24 (07/31), 22.1 (08/02), 31.4 (08/03) , 29.2 (08/04), 23.5 (08/05), 34.9 (08/08), 33.0 (08/09), 40.6 (08/12) - lipase 2673 (07/28), 2471 (07/29), 758 (07/30), 215 (08/10), 155 (08/02), 730 (08/03 ), 509 (08/04), 423 (08/05), 708 (08/07), 768 (08/08), 596 (08/09), 459 (08/10/18), 271 (08/12) - Repeat labs in AM - On 08/07 the pts nurse reported that when flushing the J-tube that the water was coming up through the pts insertion site in the skin. - GJ tube reevaluated by Dr. Lala (08/08/18) G and J ports both patent. No findings of leakage from tube or through dermatotomy. Patient does appear to have some stasis of material in gastric lumen probably secondary to gastroparesis. Placed G-port to gravity drainage. Discussed with patients nurse on floor but she had only received report of tube leaking and did not witness it herself. Discussed the decompression of the gastric lumen with gravity drainage. Tube o/w OK so no change. - continue TF by J-tube, after J-tube is reassessed by IR (08/12) - continue clears - norco prn - SCDs for DVT prophylaxis - appreciate input from Palliative Medicine - Case d/w GI EMT I/[address] Bravo (08/12) - Appreciate input from Dr. Stewart. - Pt started on IV solumedrol Chronic kidney failure - Pt with baseline stage 3 CKD, pt follows with Dr. Melara - avoid nephrotoxic agents - Per RN several OTC Advil found hidden in a tissue box at patient's bedside. Discussed with patient and nurse that she should not be taking Advil given her renal function and should not be taking outside medications - Cr 3.37 (08/10), 3/48 (08/12) - continue IVFs - repeat BMP in AM Hypernatremia - resolved - sodium 151 (08/09), 147 (08/10), 145 (08/11), 136 (08/12) - patient had not received free water flush due to concern regarding GJ tube Leukocytosis, persistent - [facility] Medical team has cared for Ms. Larsen for several years and many different admissions. - Pt tends to have marked persistent leukocytosis during her admissions which correlated to flares of her idiopathic pancreatitis - paradoxically, pt's leukocytosis has improved in the past, as well as her clinical condition with steroids - possibly d/t to a reactive process - Pt has had NO fever above 99.9F this entire admission - There is NO indication of infection. Pt has NO c/o cough, SOB, or dysuria. There is NO diarrhea. - obtain peripheral smear - appreciate input from Hematology, Dr. Perea. Leukocytosis is likely d/t Pancreatitis. HTN (hypertension) - Cont. home meds - Monitor GERD (gastroesophageal reflux disease) - PPI Hypomagnesemia - repleted Hypokalemia - Improved with replacement anemia - d/t chronic disease, stable. - this diagnosis has been explored during prior hospitalizations and d/w Hematology - anemia felt to be d/t underlying disease processes - observe (1) Idiopathic pancreatitis Qualifiers:
--- NOTE | 2018-08-12 16:41 | P.DIET ---
Nutritional Evaluation Type of nutrition evaluation: follow-up Nutrition consult regarding: Tube Feeding Nutrition screening: Weight Loss > 10 lbs Screening comments: NPO ALERT X 3 DAYS. NUTRITION ASSESSMENT COMPLETED 07/28, DIETITIAN FOLLOWING. Subjective Oral Diet Tolerance Assessment Indicates: Poor intake due to pain Subjective Comments: Brought forward from previous note: Pt request for full liquid diet. Spoke w/Pt' s grand daughter Anita Albert, by phone, who reports pt was receiving Nepro TF 'ing @ 45ml/hr at home. Pt 's grand daughter reports pt was having diarrhea while receiving Nepro. TF'ing runs continuously at home and Anita says she " may turn it off" for 1-2 hours, "every once in awhile". Anita says the pt takes "bites" of food at home and does not care for oral nutritional supplements. Pt visited w/LISY Griffin and pt has a soft-formed stool today. TF' ing running @ 40ml/hr. Visual Display Manager Nadia Sanchez request for recommended TF'ing formula for pt when discharged. Objective - Diagnosis Recurrent Idiopathic Pancreatitis - Objective % IBW: 104 (JDI=823#) Body Weight Used for Calculations: Actual (61.4kg) Energy Needs - Lower Range (kCal/kg): 25 Energy Needs - Upper Range (kCal/kg): 30 Lower Limit kCal/kg (kCals): 1,535 Upper Limit kCal/kg (kCals): 1,842 Lower Limit Protein Factor (Grams per Kg): 0.6 Upper Limit Protein Factor (Grams per Kg): 1.0 Lower Protein Needs (Protein): 37 Upper Protein Needs (Protein): 61 Dietitian Reviewed in Medical Record: Current diet, Curent medications, Intake & Output, Labs, Medical history, Tube feeding Diet Order: TF'ing Su[place]ena @ goal rate 40ml/hr and Full Liquid Tray Objective Comments: PMH Includes: Anxiety, CKD-3, GERD, HTN, Pancreatitis; G-J tube inplace 08/08/18 uncomplicated tube injection by IR 08/02/18 ERCP w/Stent removal, balloon extraction and metal stent placement; revealed choledolithiasis Labs: Creatinine 3.48, estGFR 15, Glucose 197, Lipase 531, CRP 24.8 Meds Include: Creon, Norvasc, Cymbalta, Metoprolol, Zofran, Protonix, Free Water Flush 200ml Q 6-hr LBM 08/09 Feeding - Current Tube Feeding Tube Feeding Product: Su[place]ena Tube Feeding Rate: 40 Tube Feeding Route: J/G tube Assessment Assessment: Pt continues at nutritional risk r/t diagnosis, wt loss and need for TF'ing. Current TF'ing w/Suplena @ goal rate 40ml/hr on hold r/t j-tube is not flushing. MD plan for IR to reassess feeding tube and resume TF'ing when able. TF'ing w/Suplena @ goal rate 40ml/hr provides 1728 kcal, 43g Protein and 708ml free water. Rec TF'ing w/Suplena @ 40ml/hr when pt is discharged r/t Suplena is appropriate TF'ing formulary for CKD-3. Diet for pleasure w/full liquids and semi-soft solids. Free Water Flushes per MD as ordered. Labs reviewed. Wt changes noted. Dietitian following. Recommendations: 1. When able, Resume TF'ing w/Suplena @ goal rate 40ml/hr 2. Rec TF'ing w/Suplena @ 40ml/hr when pt is discharged r/t Suplena is appropriate TF'ing formulary for CKD-3 3. Diet for pleasure w/full liquids and semi-soft solids 4. Free Water Flushes per MD as ordered 5. Dietitian following Dietitian to Monitor: Lab values, Renal labs, Intake & Output, Diet tolerance, Tube feeding tolerance, Weight change, PO Intake, Medical course
--- NOTE | 2018-08-12 16:54 | P.PNPAL ---
Reason for Visit Reason for visit: a. To assist with evaluation and management of symptoms including: Pain, nausea , debility b. To assist medical decision maker(s) with: better understanding of current medical conditions; weighing benefits/burdens of medical treatment options; making medical treatment decisions. Subjective Subjective/Interval History: Follow-up medically necessary for symptom management and further clarification of goals of care. Patient seen and examined in the presence of her grandson Von Perez and granddaughter Anita Albert. Patient is awake, more alert today-currently denying pain. Pain managed with hydrocodone/ acetaminophen 5/325 every 4 hours prn and patient is needed x6 as needed doses in the past 24 hours. Patient endorsing nausea. Nausea managed with Zofran 4 mg IV push every 6 hours as needed. Patient only used x1 dose in the past 4 days. Patient has a tray with full liquids and Ensure at bedside and she stated that today she was able to drink Ensure. J-tube not flushing. Patient getting ready to go to interventional radiology for reassessment. 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 Introduced palliative care and its role in symptom management and establishment of goals of medical treatment. Brief conversation with patient's daughter Caitlyn Perez who confirmed that she is the DPOA. Requested if she would bring in a copy for the hospital and she stated that the hospital should have a copy and she is not going to bring another copy. Patient's daughter stated that she has spoke to case management and would like to honor her mother's wish to be discharged home and not go to any fdc facility for rehabilitation. Goals remain aggressive. Case discussed with bedside RN and case management. Family/Friend Interactions: See interval note. Advance Directives Health Care Surrogate: Completed, but not made available Durable Power of Publicity Manager: Completed, but not made available Health Care Surrogate Name and Number: HCP: Daughter-Caitlyn Perez Objective Vital Signs: Vital Signs 08/11/18 20:00 08/12/18 00:00 08/12/18 08:00 Temperature 98.4 F 98.2 F 98.0 F Pulse Rate 104 H 100 H 91 H Respiratory Rate 20 20 18 Blood Pressure 147/74 H 149/78 H 140/86 Pulse Oximetry 100 100 100 08/12/18 12:00 Temperature 98.2 F Pulse Rate 88 Respiratory Rate 18 Blood Pressure 148/77 H Pulse Oximetry 99 Intake & Output 08/11/18 08/12/18 08/12/18 18:59 06:59 18:59 Intake Total 420 / 420 1640 / 1640 Balance 420 / 420 1640 / 1640 Weight 60 kg Intake: IV 1000 / 1000 1/2 Normal Saline Inj 1,000 ML 1000 / 1000 @ 100 mls/hr IV.CONT .Q10H HITESH Rx#:[id number] Oral 420 / 420 100 / 100 Tube Feeding 480 / 480 Tube Irrigant 60 / 60 Other: # Voids 6 5 Date of Last Bowel Movement 08/09/18 08/09/18 Physical Exam: CONSTITUTIONAL/GENERAL: This is a chronically ill looking patient, complaining of abdominal pain and nausea. TUBES/LINES/DRAINS: PIV, GJ tube SKIN: No jaundice, rashes, or lesions. Ecchymoses on upper extremities. No wounds seen anteriorly. Skin temperature appropriate. Not diaphoretic. HEAD: Atraumatic. Normocephalic. EYES: Pupils equal and round and reactive. Extraocular motions intact. No scleral icterus. No injection or drainage. Fundi not examined. ENT: Hearing grossly normal. Nose without bleeding or purulent drainage. Moist oral mucosa NECK: Trachea midline. Supple, nontender. CARDIOVASCULAR: Regular rate and rhythm without murmurs, gallops, or rubs. No JVD. Peripheral pulses symmetric. RESPIRATORY/CHEST: Symmetric, unlabored respirations. Clear to auscultation. Breath sounds equal bilaterally. No wheezes, rales, or rhonchi. GASTROINTESTINAL: Abdomen soft, non-tender, nondistended. Somewhat guarding. Bowel sounds present. GENITOURINARY: Without palpable bladder distension. Balderrama catheter in place. MUSCULOSKELETAL: Extremities without clubbing, cyanosis, or edema. No joint tenderness or effusion noted. No calf tenderness. No mottling or clubbing. NEUROLOGICAL: Alert, oriented to self, place and situation. Motor and sensory grossly within normal limits. Follows commands. Moves all extremities. PSYCHIATRIC: No obvious anxiety/depression. no apparent hallucinations or other psychotic thought process. Diagnostic Tests Laboratory: Laboratory Results - last 72 hr 08/10/18 08/10/18 08/11/18 03:30 03:30 04:05 CBC w Diff WBC 35.1 H 36.4 H Corrected WBC RBC 2.99 L 2.88 L Hgb 8.4 L 8.0 L Hct 26.5 L 24.8 L MCV 88.7 86.0 MCH 27.9 27.9 MCHC 31.5 L 32.4 RDW 19.8 H 19.7 H Plt Count 461 H 478 H MPV 7.8 7.7 Prelim Diff (Auto) Slide review pending Slide review pending Immature Gran % (Auto) Neut % (Auto) 89.2 H 88.3 H Lymph % (Auto) 5.8 L 5.9 L [place] % (Auto) 4.4 4.4 Eos % (Auto) 0.3 0.6 Baso % (Auto) 0.3 0.8 Immature Gran # (Auto) Neut # (Auto) 31.4 H 32.1 H Lymph # (Auto) 2.0 2.1 [place] # (Auto) 1.5 H 1.6 H Eos # (Auto) 0.1 0.2 Baso # (Auto) 0.1 0.3 H WBC Differential Manual diff final Manual diff final Diff Scan Seg Neuts % (Manual) 84 H 86 H Band Neuts % (Manual) 6 1 Lymphocytes % (Manual) 7 L 7 L Atypical Lymphs % (Man) Monocytes % (Manual) 3 5 Eosinophils % (Manual) 1 Basophils % (Manual) Metamyelocytes % (Man) Myelocytes % (Man) Promyelocytes % (Man) Blast Cells % (Manual) Plasma Cell % (Manual) Other Cells % Abs Neuts (Manual) 31.6 H 31.7 H Nucleated RBCs/100 WBC 1 H Differential Comment . . Hypersegmented Neuts Smudge Cells Toxic Granulation Toxic Vacuolation Present H Dohle Bodies Platelet Estimate High H Normal Platelet Morphology Normal Normal RBC Morphology Dimorphic RBCs Polychromasia Basophilic Stippling Spherocytes Occ H Pappenheimer Bodies Sickle Cells Target Cells 1+ H Tear Drop Cells Ovalocytes Stomatocytes Helmet Cells [place] Bodies Rex Cells Acanthocytes (Spur) Rouleaux Keratocytes Occ H ESR Greater than 140 H Hematology Comments Sodium 147 H Potassium 4.8 Chloride 115 H Carbon Dioxide 18.9 L Anion Gap 13 BUN 25 H Creatinine 3.37 H Estimated GFR 16 L Random Glucose 114 H Calcium 8.4 L Magnesium Iron TIBC % Saturation Ferritin Total Bilirubin 0.3 AST 18 ALT 14 Alkaline Phosphatase 162 H C-Reactive Protein Total Protein 7.3 D Albumin 1.8 L Lipase 459 H Vitamin B12 Folate 08/11/18 08/11/18 08/11/18 04:05 04:05 04:05 CBC w Diff Cancelled WBC Cancelled Corrected WBC Cancelled RBC Cancelled Hgb Cancelled Hct Cancelled MCV Cancelled MCH Cancelled MCHC Cancelled RDW Cancelled Plt Count Cancelled MPV Cancelled Prelim Diff (Auto) Cancelled Immature Gran % (Auto) Cancelled Neut % (Auto) Cancelled Lymph % (Auto) Cancelled [place] % (Auto) Cancelled Eos % (Auto) Cancelled Baso % (Auto) Cancelled Immature Gran # (Auto) Cancelled Neut # (Auto) Cancelled Lymph # (Auto) Cancelled [place] # (Auto) Cancelled Eos # (Auto) Cancelled Baso # (Auto) Cancelled WBC Differential Cancelled Diff Scan Cancelled Seg Neuts % (Manual) Cancelled Band Neuts % (Manual) Cancelled Lymphocytes % (Manual) Cancelled Atypical Lymphs % (Man) Cancelled Monocytes % (Manual) Cancelled Eosinophils % (Manual) Cancelled Basophils % (Manual) Cancelled Metamyelocytes % (Man) Cancelled Myelocytes % (Man) Cancelled Promyelocytes % (Man) Cancelled Blast Cells % (Manual) Cancelled Plasma Cell % (Manual) Cancelled Other Cells % Cancelled Abs Neuts (Manual) Cancelled Nucleated RBCs/100 WBC Cancelled Differential Comment Cancelled Hypersegmented Neuts Cancelled Smudge Cells Cancelled Toxic Granulation Cancelled Toxic Vacuolation Cancelled Dohle Bodies Cancelled Platelet Estimate Cancelled Platelet Morphology Cancelled RBC Morphology Cancelled Dimorphic RBCs Cancelled Polychromasia Cancelled Basophilic Stippling Cancelled Spherocytes Cancelled Pappenheimer Bodies Cancelled Sickle Cells Cancelled Target Cells Cancelled Tear Drop Cells Cancelled Ovalocytes Cancelled Stomatocytes Cancelled Helmet Cells Cancelled [place] Bodies Cancelled Rex Cells Cancelled Acanthocytes (Spur) Cancelled Rouleaux Cancelled Keratocytes Cancelled ESR Hematology Comments Cancelled Sodium 145 Potassium 4.2 Chloride 113 H Carbon Dioxide 22.6 Anion Gap 9 BUN 30 H Creatinine 3.54 H Estimated GFR 15 L Random Glucose 114 H Calcium 7.9 L Magnesium 1.5 Iron 17 L TIBC 59 L % Saturation 28.9 Ferritin 950 H Total Bilirubin 0.2 AST 9 L ALT 10 Alkaline Phosphatase 159 H C-Reactive Protein 24.80 H Total Protein 6.8 Albumin 1.6 L Lipase 531 H Vitamin B12 1631 H Folate 10.2 08/12/18 08/12/18 04:14 04:14 CBC w Diff WBC 40.6 H Corrected WBC RBC 2.78 L Hgb 7.7 L Hct 23.9 L MCV 86.0 MCH 27.7 MCHC 32.2 RDW 19.6 H Plt Count 423 MPV 8.2 Prelim Diff (Auto) Manual diff required Immature Gran % (Auto) Neut % (Auto) Lymph % (Auto) [place] % (Auto) Eos % (Auto) Baso % (Auto) Immature Gran # (Auto) Neut # (Auto) Lymph # (Auto) [place] # (Auto) Eos # (Auto) Baso # (Auto) WBC Differential Manual diff final Diff Scan Seg Neuts % (Manual) 93 H Band Neuts % (Manual) 5 Lymphocytes % (Manual) 2 L Atypical Lymphs % (Man) Monocytes % (Manual) Eosinophils % (Manual) Basophils % (Manual) Metamyelocytes % (Man) Myelocytes % (Man) Promyelocytes % (Man) Blast Cells % (Manual) Plasma Cell % (Manual) Other Cells % Abs Neuts (Manual) 39.8 H Nucleated RBCs/100 WBC Differential Comment . Hypersegmented Neuts Smudge Cells Toxic Granulation Toxic Vacuolation Dohle Bodies Platelet Estimate Normal Platelet Morphology Clumped H RBC Morphology Dimorphic RBCs Polychromasia Basophilic Stippling Spherocytes Occ H Pappenheimer Bodies Sickle Cells Target Cells Tear Drop Cells Ovalocytes Stomatocytes Helmet Cells [place] Bodies Rex Cells Acanthocytes (Spur) Occ H Rouleaux Keratocytes Occ H ESR Hematology Comments Sodium 136 Potassium 4.7 Chloride 105 D Carbon Dioxide 20.1 L Anion Gap 11 BUN 32 H Creatinine 3.48 H Estimated GFR 15 L Random Glucose 197 H Calcium 7.7 L Magnesium Iron TIBC % Saturation Ferritin Total Bilirubin AST ALT Alkaline Phosphatase C-Reactive Protein Total Protein Albumin Lipase 271 Vitamin B12 Folate Result Diagrams: 08/12/18 04:14 08/12/18 04:14 Imaging: Abdomen/Pelvis CT 07/28/18 01:18 CONCLUSION: 1. Postoperative changes of biliary stent with biliary drainage catheter passing through the stent. Gastrojejunostomy tube again noted. 2. Mild stranding of fat around the pancreas could indicate a mild pancreatitis. 3. 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 GI Procedure 08/02/18 00:00 CONCLUSION: A biliary stent has been placed. It is in good position. There is good filling of the hepatic ducts. Tube Check 08/08/18 00:00 CONCLUSION: 1. Uncomplicated tube injection as above. The tube was not exchanged. Procedures: 08/02/18-ERCP with stent exchange 08/08/18-GJ tube check by interventional radiology 08/12/18-GJ tube check by interventional radiology Assessment and Plan - Disease Oriented Problem List (1) Leukocytosis (2) Hypernatremia (3) Hypokalemia (4) HTN (hypertension) (5) CKD (chronic kidney disease) (6) GERD (gastroesophageal reflux disease) (7) Anemia - Symptom Scale (1) Pain 0-10 Scale: 5 (2) Nausea 0-10 Scale: Unable to quantify Comment: Patient complaining of nausea. (3) Debility 0-10 Scale: Unable to quantify Comment: Progressive. Pertinent Non-Medical Issues: Psychosocial: Patient is retired. She had 2 children and one of her children is . She lives with her daughter. Spiritual: Patient is Zoroastrianism Legal:Never completed advance directives. Ethical issues impacting care: None identified at this time Important Contacts: Daughter -Caitlyn Perez [phone] extension [phone] Granddaughter -Anita Albert [phone] Prognosis: Mrs Larsen is an 82-year-old female with a history significant for recurrent idiopathic pancreatitis, GERD, hypertension, anemia, chronic kidney disease and has a gastrojejunal tube. Patient has been hospitalized numerous times for issues regarding pain control related to recurrent pancreatitis. The last admission was from 06/291813/10/18 due to acute kidney injury, idiopathic pancreatitis and exchange of GJ tube on 07/25/18. Patient presented to the ER on 07/28/18 with complaints of worsening abdominal pain associated with nausea. Clinical course complicated with abdominal pain, persistent leukocytosis, elevated lipase and imaging consistent with acute pancreatitis. Given ongoing multiple comorbidities and multiple hospitalizations, patient remains at high risk for further complications, deterioration and decline. Code Status: Full Code Plan: PLAN: Legal decision maker: Patient is currently oriented to self, place and situation. Appears to be able to participate in medical decision making. According to [place] statute, in the event that patient is incapacitated, her only daughter Caitlyn Perez will serve as her healthcare proxy. Goals: Remain aggressive. Brief conversation with patient's daughter Caitlyn Perez who confirmed that she is the DPOA. Requested if she would bring in a copy for the hospital and she stated that the hospital should have a copy and she is not going to bring another copy. Patient's daughter stated that she has spoke to case management and would like to honor her mother's wish to be discharged home and not go to any fdc facility for rehabilitation. Goals remain aggressive. CODE STATUS: Full code SYMPTOMS: * Pain: Patient has history of idiopathic pancreatitis. Came in complaining with abdominal pain which appears to be chronic. Lipase is elevated. Patient received a one-time dose of 2 mg morphine sulfate IV push on 08/10/18. patient is currently on hydrocodone/acetaminophen 5/325 every 4hrs prn. Patient required x6 prn doses of pain medication. Adequate at this time * Nausea: Patient has history of pancreatitis. She came in complaining with nausea. Patient is mostly fed via GJ tube. ERCP on 08/02 with stent replacement. Zofran 4mg prn IVP q 6 hrs for nausea available. Currently complaining of nausea. Patient's J-tube is not flushing. Patient is only used Zofran once in the past 4 days. Continue to assess for nausea. * Debility: Patient has had multiple hospitalizations with complaints of abdominal pain. Patient ambulates with a walker at home. PT consulted, recommending PT at rehab. Patient is refusing to go to a fdc facility for rehab, she would want to be discharged back home and his daughter who is here [facility] is supportive of her decision. Palliative care will continue to follow the patient during hospital course as condition evolves, to assist patient/decision-maker with understanding of their medical conditions, weighing benefits/burdens of treatment options, for clarification of goals of treatment. Additionally will assist with any symptoms of palliative concern Attestation Attestation: To help prompt me to consider important information that might be impacting today's encounter and assessment, information from prior notes written by myself or my colleagues may have been "brought forward" into today's note. My signature on this note, however, is an attestation that I personally performed the exam, history, and/or decision-making noted today, and, unless otherwise indicated, the interactions with patient, family, and staff as well as the review of records all occurred today. I also attest that the listed assessment and stated plan reflect my best clinical judgment today based on the combination of historical information, prior notes, and today's exam/ interactions. When time spent is documented, it refers only to time spent today by the signer, or if indicated, combined time spent today by collaborating physician/nurse practitioner.
--- NOTE | 2018-08-12 17:15 | P.RAD ---
Radiology Note G/J tube evaluated. Tube flushed with warm water and easily unclogged. Tube now functions normally OK for use
[2018-08-13] MEDS: MethylPREDNISolone Sod Succinate Inj 125 MG/2 ML Vial IV.PUSH SCH ×5 (01:32→23:47)
[2018-08-13] MEDS: Sod Chloride 0.9% Inj 1,000 ML IV.CONT SCH ×3 (01:35→16:10)
[2018-08-13] MEDS: amLODIPine 5 MG Tablet PO SCH (08:16)
[2018-08-13] MEDS: Sucralfate 1 GM Tablet PO SCH ×3 (08:17→17:19)
[2018-08-13] MEDS: Metoprolol Tartrate 25 MG Tablet PO SCH ×2 (08:17→20:27)
[2018-08-13] MEDS: Sodium Chloride 0.9% 2 ML Flush BID IV.FLUSH SCH ×2 (08:17→20:27)
[2018-08-13] MEDS: Lipase/Protease/Amylase 12/38/60 DR Capsule PO SCH ×3 (08:30→17:30)
[2018-08-13 11:48] LABS: Hematocrit 24.6 % (35.0-46.0); Hemoglobin 7.6 gm/dL (11.6-15.3); Mean Corpuscular Hemoglobin 27.1 pg (27.0-34.0); Mean Corpuscular Volume 87.3 fL (80.0-100.0); Mean Platelet Volume 7.7 fL (7.0-11.0); Platelet Count 560 th/mm3 (150-450); Red Blood Count 2.82 mil/mm3 (4.00-5.30); Red Cell Distribution Width 19.5 % (11.6-17.2); White Blood Count 38.1 th/mm3 (4.0-11.0)
[2018-08-13 12:26] LABS: Albumin 1.6 g/dL (3.4-5.0); Calcium 7.2 mg/dL (8.5-10.1); Carbon Dioxide 18.5 meq/L (21.0-32.0); Lymphocytes 1 % (9-44); Potassium 4.5 meq/L (3.5-5.1); Total Protein 6.5 g/dL (6.4-8.2)
[2018-08-13 12:27] LABS: Hypersegmented Neutrophils 1+; Platelet Morphology Normal (Normal)
--- NOTE | 2018-08-13 12:52 | IR ---
EXAM DATE: 08/12/2018 12:00 AM EDT AGE/SEX: 82 years / Female INDICATIONS: Evaluate for clogged GJ tube. HISTORY OF PRESENT ILLNESS: The patient has had a long-term transgastric J-tube in place. We're aske d to assess the tube as the tube was felt to be clogged. PROCEDURE: The patient was brought to the angiography suite. The patient was left in her bed. The tub e was flushed with warm water using a 10 cc syringe. The occlusion was easily dislodged. The patient was transferred back in good condition. IMPRESSION: Successful clearing of the patient's occlusion in the GJ tube. Electronically signed by: Remigio Tabor MD 08/13/2018 12:51 PM EDT
--- NOTE | 2018-08-13 12:55 | P.PNIM ---
Subjective Interval history: No new complaints. Less abdominal pain today. Physical Exam Vital signs: 08/13/18 08:00 Temperature 97.2 F L Pulse Rate 93 H Respiratory Rate 18 Blood Pressure 139/77 Pulse Oximetry 100 Narrative: GENERAL: This is a 82 year old female, well-developed patient, in no apparent distress. CARDIO: Regular RESP: CTA bilaterally. ABD: +BS, soft, nontender, nondistended. GJ tube in place, no drainage or puss noted at the insertion site EXT: No edema. Results - Labs CBC & Chem 7: 08/14/18 03:39 08/14/18 09:40 - Imaging Abdomen/Pelvis CT 07/28/18 01:18 1. Postoperative changes of biliary stent with biliary drainage catheter passing through the stent. Gastrojejunostomy tube again noted. 2. Mild stranding of fat around the pancreas could indicate a mild pancreatitis. 3. 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 GI Procedure 08/02/18 00:00 A biliary stent has been placed. It is in good position. There is good filling of the hepatic ducts. Tube Check 08/08/18 00:00 1. Uncomplicated tube injection as above. The tube was not exchanged. Assessment and Plan - Assessment (1) Idiopathic pancreatitis Code(s): K85.00 - Idiopathic acute pancreatitis without necrosis or infection Status: Acute Plan: Idiopathic pancreatitis - Patient is an 82 y/o AAF with recurrent idiopathic pancreatitis. She has been hospitalized numerous times for issues with pain control related to recurrent pancreatitis. Her last admission was from 07/13/18 to 07/26/18 due to WAYNE, idiopathic pancreatitis and had her GJ tube exchanged 07/25/18. - Patient again presented to the ER last night due to worsening abd pain associated with nausea but no vomiting. Patient reports that she always had mild epigastric pain, but yesterday evening it again became more severe and is associated with nausea but not vomiting. Denies fever or chills, chest pain, cough, difficulty flushing J tube, or diarrhea. - On admission WBC 21.6, BUN 44, creatinine 2.60 and lipase 2673. - CT abd/pelvis was done and revealed: 1. Postoperative changes of biliary stent with biliary drainage catheter passing through the stent. Gastrojejunostomy tube again noted. 2. Mild stranding of fat around the pancreas could indicate a mild pancreatitis. 3. 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 - PO pain medication as needed - Appreciate input from GI. - Pt underwent repeat ERCP with stent exchange, 08/02/18 (ERCP and stent exchange cancelled on 08/01 as patient's daughter needed to talk with Dr. Ortega prior to signing consent.). According to the procedure report, the common bile duct had multiple filling defects which were able to be cleaned out and once cleaned he was able to clearly see the ingrowth into the old metal stent and so a 10 [place] 40 mm stent was placed within the first metal stent and it protruded about a centimeter into the duodenum with good drainage noted. The intrahepatics appeared to be unremarkable - Dietary recommended TF with Suplena with goal rate 40mls/hr, orders placed for this for discharge as pt was previously on Jevity but complained of diarrhea. - Pts lipase started to trend slightly up on 08/07 and 08/08 - WBC 21.6 (07/28), 24.9 (07/29), 22.6 (07/30), 24 (07/31), 22.1 (08/02), 31.4 (08/03) , 29.2 (08/04), 23.5 (08/05), 34.9 (08/08), 33.0 (08/09), 40.6 (08/12) - lipase 2673 (07/28), 2471 (07/29), 758 (07/30), 215 (08/10), 155 (08/02), 730 (08/03 ), 509 (08/04), 423 (08/05), 708 (08/07), 768 (08/08), 596 (08/09), 459 (08/10/18), 271 (08/12) - Repeat labs in AM - On 08/07 the pts nurse reported that when flushing the J-tube that the water was coming up through the pts insertion site in the skin. - GJ tube reevaluated by Dr. Lala (08/08/18) G and J ports both patent. No findings of leakage from tube or through dermatotomy. Patient does appear to have some stasis of material in gastric lumen probably secondary to gastroparesis. Placed G-port to gravity drainage. - J-tube is reassessed by IR (08/13) and functional after flushine with warm water - continue clears - norco prn - SCDs for DVT prophylaxis - appreciate input from Palliative Medicine - Case d/w GI TABLE RUNNER for Dr. Bravo (08/12) - Appreciate input from Dr. Stewart. - Pt started on IV solumedrol - 08/13/18 - continue current treatment plan as outlined above - Will update pt's daughter Caitlyn Perez Chronic kidney failure - Pt with baseline stage 3 CKD, pt follows with Dr. Melara - avoid nephrotoxic agents - Per RN several OTC Advil found hidden in a tissue box at patient's bedside. Discussed with patient and nurse that she should not be taking Advil given her renal function and should not be taking outside medications - Cr 3.37 (08/10), 3/48 (08/12), 3.46 (08/13) - continue IVFs - repeat BMP in AM Hypernatremia - resolved - sodium 151 (08/09), 147 (08/10), 145 (08/11), 136 (08/12) - patient had not received free water flush due to concern regarding GJ tube Leukocytosis, persistent - [facility] Medical team has cared for Ms. Larsen for several years and many different admissions. - Pt tends to have marked persistent leukocytosis during her admissions which correlated to flares of her idiopathic pancreatitis - paradoxically, pt's leukocytosis has improved in the past, as well as her clinical condition with steroids - possibly d/t to a reactive process - Pt has had NO fever above 99.9F this entire admission - There is NO indication of infection. Pt has NO c/o cough, SOB, or dysuria. There is NO diarrhea. - obtain peripheral smear - appreciate input from Hematology, Dr. Perea. Leukocytosis is likely d/t Pancreatitis. - Pt/family request consultation from Infectious Disease, concerned that leukocytosis is d/t infection. HTN (hypertension) - Cont. home meds - Monitor GERD (gastroesophageal reflux disease) - PPI Hypomagnesemia - repleted Hypokalemia - Improved with replacement anemia - d/t chronic disease, stable. - this diagnosis has been explored during prior hospitalizations and d/w Hematology - anemia felt to be d/t underlying disease processes - Hg 7.6 (08/13) - transfuse 2 units PRBCs - repeat Hg in AM (1) Idiopathic pancreatitis Qualifiers:
[2018-08-13] MEDS ORDERED: Sodium Chlor 0.9% Inj 250 ML IV.SIG SCH (13:00)
--- NOTE | 2018-08-13 16:47 | MB ---
cc: Mark Dorsey MD, Edward B DO DATE: 08/13/2018 REQUESTING PHYSICIAN: Alexander Eddy DO REASON FOR CONSULTATION: Leukocytosis. HISTORY OF PRESENT ILLNESS: This is an 82-year-old black female who was admitted to the hospital and felt to have pancreatitis. The patient has been managed for such. The patient was noted to have leukocytosis with an elevated white blood cell count and this is a reason why this consultation was requested. On admission, the white count was 21.6 and it has remained elevated and now is higher than previous. The white count climbed up to 40.6 yesterday, which is the highest since admission, and then today is 38.1. The patient has no fever. She has been evaluated by the hematology/oncology and it is felt that the elevated white blood cell count may be reactive and it does not appear that she has any evidence of leukemia. She had a workup with a CT scan of the abdomen which showed mild stranding of fat around the pancreas, which could indicate a mild pancreatitis, and postoperative changes of biliary stent. The patient says she feels okay, but she does not feel great. She notes that she has some low back pain and she gets pain in the abdomen when she eats. She denies chills, night sweats or shortness of breath. She has a GJ tube for feedings and she is receiving tube feedings. The patient has had an elevated white blood cell count for a long time looking back on her medical record. Her white count, however, had normalized for a short period of time when she was in the hospital in 05/2017, and when she came back in 09/2017, again had a normal white count. In December and February 2017 and then after that, it has remained elevated on all subsequent measures. She was started on Solu-Medrol on 08/11/2018. PAST MEDICAL HISTORY: Hypertension, gastroesophageal reflux disease, chronic kidney disease, history of blood transfusion reaction, idiopathic pancreatitis, history of total knee replacement on the left, history of cholecystectomy, gastrojejunostomy tube placement. ALLERGIES: NO KNOWN DRUG ALLERGIES. MEDICATIONS: 1. Tylenol p.r.n. 2. Norvasc. 3. Creon. 4. Cymbalta. 5. Solu-Medrol. 6. Lopressor. 7. Protonix. 8. Actigall. 9. Carafate. SOCIAL HISTORY: No tobacco, no alcohol, no illicit drugs. FAMILY HISTORY: Noncontributory. REVIEW OF SYSTEMS: Pertinent includes lower back pain and abdominal pain. Mild headache. Otherwise, negative on a 10-point system review. PHYSICAL EXAMINATION: GENERAL: This is a slender female who is in no acute distress. She is awake, alert and oriented. VITAL SIGNS: Temperature 98.1, BP 140/80, respirations 17, heart rate 90. HEENT: Head is atraumatic. Extraocular movements are grossly intact. Pupils are reactive to light. No icterus. Oropharynx with moist mucosa. Positive thrush. NECK: Supple without adenopathy. LUNGS: Decreased breath sounds. No audible rhonchi. ABDOMEN: Bowel sounds present. Soft. No tenderness appreciated. No mass palpable. RECTAL: Not performed. EXTREMITIES: No clubbing, cyanosis or edema. SKIN: No rash. The skin of the legs is dry. NEUROLOGIC: Nonfocal. PSYCHIATRIC: The patient is calm and cooperative. LABORATORY DATA: WBC 38.1, platelet count 560, hemoglobin 7.6, 97% neutrophils, 2% bands. Sedimentation rate greater than 140. Creatinine 3.46, BUN 49, sodium 135, estimated GFR 15, AST 12, ALT 14, alkaline phosphatase 160. IMPRESSION: 1. Leukocytosis. This is probably reactive versus occult infection. The patient is also currently on Solu-Medrol, which may lead to even further increase in the white count, but her white count was elevated prior to the Solu-Medrol. The patient has a diagnosis of pancreatitis, which could also be contributing to the white blood cell count elevation as well. 2. Recurrent pancreatitis. 3. Oral thrush. RECOMMENDATIONS: 1. Begin nystatin swish and swallow for the thrush. 2. Add Diflucan. 3. Monitor the white blood cell count. 4. Urinalysis has been ordered. Follow up urinalysis and culture if indicated. 5. Continue to monitor the patient's clinical status and white blood cell count. If it is indeed reactive, we should see some improvement as the pancreatitis improves. 6. Monitor for obvious signs of infection. Thank you for this consultation. I will follow the patient's progress along with you and make further recommendations and follow up as necessary. MD DRE Hall/jl , 04:08 PM , 04:19 PM
[2018-08-13 16:52] LABS: Bacteria,Urine Rare /hpf; Bilirubin,Urine Negative (Negative); Clarity,Urine Clear (Clear); Color,Urine Straw (Yellw/Straw); Glucose,Urine (UA) Negative (Negative); Leukocyte Esterase,Urine Trace (Negative); Mucus,Urine Few /lpf (Occasional); Nitrite,Urine Negative (Negative); Specific Gravity,Urine 1.006 (1.002-1.035); Squamous Epithelial Cell,Urine 1 /hpf (0-5)
[2018-08-13] MEDS: Fluconazole 100 MG Tablet PO SCH (17:19)
[2018-08-13] MEDS: Nystatin Liq 500,000 UNIT/5 ML UDC SWISH-SWAL SCH ×2 (17:19→20:27)
[2018-08-14] MEDS: Sod Chloride 0.9% Inj 1,000 ML IV.CONT SCH ×2 (03:28→17:30)
[2018-08-14] MEDS: MethylPREDNISolone Sod Succinate Inj 125 MG/2 ML Vial IV.PUSH SCH ×3 (05:33→17:28)
[2018-08-14 06:05] LABS: Baso # (Auto) 0.1 th/mm3 (0.0-0.2); Baso % (Auto) 0.4 % (0.0-2.0); Hemoglobin 11.1 gm/dL (11.6-15.3); Lymph # (Auto) 0.8 th/mm3 (1.0-4.8); Lymph % (Auto) 2.9 % (9.0-44.0); Mean Corpuscular HGB Conc 33.6 % (32.0-36.0); Mean Corpuscular Hemoglobin 28.4 pg (27.0-34.0); Mean Corpuscular Volume 84.5 fL (80.0-100.0); Mean Platelet Volume 7.9 fL (7.0-11.0); Mono # (Auto) 0.3 th/mm3 (0.0-0.9); Mono % (Auto) 1.1 % (0.0-8.0); Neut # (Auto) 25.5 th/mm3 (1.8-7.7); Neut % (Auto) 95.6 % (16.0-70.0); Platelet Count 466 th/mm3 (150-450); Red Cell Distribution Width 17.7 % (11.6-17.2); White Blood Count 26.7 th/mm3 (4.0-11.0)
[2018-08-14 06:25] LABS: Calcium 6.9 mg/dL (8.5-10.1); Carbon Dioxide 18.3 meq/L (21.0-32.0); Magnesium 1.7 mg/dL (1.5-2.5)
[2018-08-14 06:30] LABS: Potassium 5.4 meq/L (3.5-5.1)
[2018-08-14 06:41] LABS: Total Protein 6.7 g/dL (6.4-8.2)
[2018-08-14 08:10] LABS: Hypersegmented Neutrophils 1+; Metamyelocytes 1 % (0-1); Myelocytes 1 % (0-0); Platelet Morphology Normal (Normal)
[2018-08-14 08:11] LABS: Burr Cells 1+; Dimorphic RBC Present
[2018-08-14] MEDS: Nystatin Liq 500,000 UNIT/5 ML UDC SWISH-SWAL SCH ×4 (09:05→22:11)
[2018-08-14] MEDS: Metoprolol Tartrate 25 MG Tablet PO SCH ×2 (09:05→22:10)
[2018-08-14] MEDS: Sucralfate 1 GM Tablet PO SCH ×3 (09:05→17:29)
[2018-08-14] MEDS: Sodium Chloride 0.9% 2 ML Flush BID IV.FLUSH SCH ×2 (09:06→22:13)
[2018-08-14] MEDS: amLODIPine 5 MG Tablet PO SCH (09:06)
[2018-08-14] MEDS: Lipase/Protease/Amylase 12/38/60 DR Capsule PO SCH ×3 (09:30→17:30)
--- NOTE | 2018-08-14 11:56 | P.PNIM ---
Subjective Interval history: DRAFT NOTE Pt appears appears cheerful and less painful today. Physical Exam Vital signs: 08/14/18 08:00 Temperature 97.8 F Pulse Rate 84 Respiratory Rate 18 Blood Pressure 144/80 H Pulse Oximetry 100 Narrative: GENERAL: This is a 82 year old female, well-developed patient, in no apparent distress. CARDIO: Regular RESP: CTA bilaterally. ABD: +BS, soft, nontender, nondistended. GJ tube in place, no drainage or puss noted at the insertion site EXT: No edema. Results - Labs CBC & Chem 7: 08/21/18 09:23 08/21/18 09:23 Assessment and Plan - Assessment (1) Idiopathic pancreatitis Code(s): K85.00 - Idiopathic acute pancreatitis without necrosis or infection Status: Acute Plan: Idiopathic pancreatitis - Patient is an 82 y/o AAF with recurrent idiopathic pancreatitis. She has been hospitalized numerous times for issues with pain control related to recurrent pancreatitis. Her last admission was from 07/13/18 to 07/26/18 due to WAYNE, idiopathic pancreatitis and had her GJ tube exchanged 07/25/18. - Patient again presented to the ER last night due to worsening abd pain associated with nausea but no vomiting. Patient reports that she always had mild epigastric pain, but yesterday evening it again became more severe and is associated with nausea but not vomiting. Denies fever or chills, chest pain, cough, difficulty flushing J tube, or diarrhea. - On admission WBC 21.6, BUN 44, creatinine 2.60 and lipase 2673. - CT abd/pelvis was done and revealed: 1. Postoperative changes of biliary stent with biliary drainage catheter passing through the stent. Gastrojejunostomy tube again noted. 2. Mild stranding of fat around the pancreas could indicate a mild pancreatitis. 3. 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 - PO pain medication as needed - Appreciate input from GI. - Pt underwent repeat ERCP with stent exchange, 08/02/18 (ERCP and stent exchange cancelled on 08/01 as patient's daughter needed to talk with Dr. Ortega prior to signing consent.). According to the procedure report, the common bile duct had multiple filling defects which were able to be cleaned out and once cleaned he was able to clearly see the ingrowth into the old metal stent and so a 10 [place] 40 mm stent was placed within the first metal stent and it protruded about a centimeter into the duodenum with good drainage noted. The intrahepatics appeared to be unremarkable - Dietary recommended TF with Suplena with goal rate 40mls/hr, orders placed for this for discharge as pt was previously on Jevity but complained of diarrhea. - Pts lipase started to trend slightly up on 08/07 and 08/08 - WBC 21.6 (07/28), 24.9 (07/29), 22.6 (07/30), 24 (07/31), 22.1 (08/02), 31.4 (08/03) , 29.2 (08/04), 23.5 (08/05), 34.9 (08/08), 33.0 (08/09), 40.6 (08/12) - lipase 2673 (07/28), 2471 (07/29), 758 (07/30), 215 (08/10), 155 (08/02), 730 (08/03 ), 509 (08/04), 423 (08/05), 708 (08/07), 768 (08/08), 596 (08/09), 459 (08/10/18), 271 (08/12) - Repeat labs in AM - On 08/07 the pts nurse reported that when flushing the J-tube that the water was coming up through the pts insertion site in the skin. - GJ tube reevaluated by Dr. Lala (08/08/18) G and J ports both patent. No findings of leakage from tube or through dermatotomy. Patient does appear to have some stasis of material in gastric lumen probably secondary to gastroparesis. Placed G-port to gravity drainage. - J-tube is reassessed by IR (08/13) and functional after flushine with warm water - continue clears - norco prn - appreciate input from Palliative Medicine - Case d/w GI ROTOR BALANCER for Dr. Bravo (08/12) - Appreciate input from Dr. Stewart. - IV solumedrol (08/11 - present) - Pt's daughter Caitlyn Perez was updated by phone (08/13/18) - ID consulted per Ms. Perez's request. - SCDs for DVT prophylaxis - supportive care Chronic kidney failure - Pt with baseline stage 3 CKD, pt follows with Dr. Melara - avoid nephrotoxic agents - Per RN several OTC Advil found hidden in a tissue box at patient's bedside. Discussed with patient and nurse that she should not be taking Advil given her renal function and should not be taking outside medications - Cr 3.37 (08/10), 3/48 (08/12), 3.46 (08/13), 3.39 (08/14) - continue IVFs - repeat BMP in AM Hypernatremia - resolved - sodium 151 (08/09), 147 (08/10), 145 (08/11), 136 (08/12) - patient had not received free water flush due to concern regarding GJ tube Leukocytosis, persistent - [facility] Medical team has cared for Ms. Laresn for several years and many different admissions. - Pt tends to have marked persistent leukocytosis during her admissions which correlated to flares of her idiopathic pancreatitis - paradoxically, pt's leukocytosis has improved in the past, as well as her clinical condition with steroids - possibly d/t to a reactive process - Pt has had NO fever above 99.9F this entire admission - There is NO indication of infection. Pt has NO c/o cough, SOB, or dysuria. There is NO diarrhea. - appreciate input from Hematology, Dr. Perea. Leukocytosis is likely d/t Pancreatitis. - Pt/family request consultation from Infectious Disease, concerned that leukocytosis is d/t infection. - WBC 40.6 (08/12), 38.1 (08/13), 26.7 (08/14) - I appreciate the input from ID, Dr. Chahal. - Pt started on PO diflucan and nystatin s/s HTN (hypertension) - Cont. home meds - Monitor GERD (gastroesophageal reflux disease) - PPI Hypomagnesemia - repleted Hypokalemia - resoved anemia - d/t chronic disease, stable. - this diagnosis has been explored during prior hospitalizations and d/w Hematology - anemia felt to be d/t underlying disease processes - Hg 7.6 (08/13), 11.1 (08/14) - transfuse 2 units PRBCs - repeat Hg in AM (1) Idiopathic pancreatitis Qualifiers:
[2018-08-14] MEDS ORDERED: Calcium Gluconate Inj 1 GM in Sodium Chlor 0.9% Inj 100 ML IV.SIG ONE (12:00)
[2018-08-14] MEDS: Fluconazole 100 MG Tablet PO SCH (17:28)
[2018-08-15] MEDS: MethylPREDNISolone Sod Succinate Inj 125 MG/2 ML Vial IV.PUSH SCH ×4 (00:17→21:37)
[2018-08-15] MEDS: Sod Chloride 0.9% Inj 1,000 ML IV.CONT SCH ×3 (03:16→20:20)
[2018-08-15 06:40] LABS: Albumin 1.7 g/dL (3.4-5.0); Calcium 6.8 mg/dL (8.5-10.1); Carbon Dioxide 17.8 meq/L (21.0-32.0); Potassium 4.9 meq/L (3.5-5.1); Total Protein 5.9 g/dL (6.4-8.2)
--- NOTE | 2018-08-15 07:42 | P.PNONC ---
Subjective Interval history: Patient is feeling slightly better. Her abdominal pain has improved. She is still very weak. She remains afebrile. Objective Vital Signs/Intake & Output: Vital Signs 08/14/18 08:00 08/14/18 12:00 08/14/18 16:00 Temperature 97.8 F 98.1 F 98.7 F Pulse Rate 84 84 93 H Respiratory Rate 18 17 17 Blood Pressure 144/80 H 154/80 H 144/74 H Pulse Oximetry 100 97 99 08/14/18 20:00 08/15/18 00:00 Temperature 98.0 F 97.9 F Pulse Rate 96 H 85 Respiratory Rate 17 18 Blood Pressure 167/84 H 156/86 H Pulse Oximetry 99 98 Intake & Output 08/14/18 08/15/18 08/15/18 18:59 06:59 18:59 Intake Total 1530 / 1530 1320 / 1320 Output Total 625 / 625 500 / 500 300 / 300 Balance 905 / 905 820 / 820 -300 / -300 Weight 64.3 kg Intake: IV 1110 / 1110 1000 / 1000 NS Inj 1,000 ML @ 75 mls/hr IV. 1000 / 1000 1000 / 1000 CONT .[id number] [facility] Rx#:[id number] Calcium Gluconate Inj 1 GM In 110 / 110 NS Inj 100 ML @ 110 mls/hr IV. SIG ONCE ONE Rx#:[id number] Oral 420 / 420 120 / 120 Water Bolus Amount 200 / 200 Output: Urine 625 / 625 500 / 500 300 / 300 Other: Date of Last Bowel Movement 08/14/18 # Bowel Movements 2 Result Diagrams: 08/14/18 03:39 08/15/18 04:20 Laboratory Results: Laboratory Results - last 24 hr 08/14/18 08/14/18 08/15/18 03:39 09:40 04:20 WBC Differential Manual diff final Seg Neuts % (Manual) 98 H Metamyelocytes % (Man) 1 Myelocytes % (Man) 1 H Abs Neuts (Manual) 26.7 H Hypersegmented Neuts 1+ H Platelet Estimate High H Platelet Morphology Normal Dimorphic RBCs Present H Rex Cells 1+ H Sodium 137 Potassium 4.0 D 4.9 D Chloride 107 Carbon Dioxide 17.8 L Anion Gap 12 BUN 60 H Creatinine 3.30 H Estimated GFR 16 L Random Glucose 165 H Calcium 6.8 L* Prot Corrected Calcium 7.4 L* Total Bilirubin 0.2 AST 31 ALT 27 Alkaline Phosphatase 171 H Total Protein 5.9 L D Albumin 1.7 L Medications: Active Medications Generic Name Dose Route Start Last Admin Trade Name Freq PRN Reason Stop Dose Admin Acetaminophen 650 mg 07/30/18 21:53 08/09/18 20:37 Tylenol PO 650 mg Q6H PRN Administration TEMPERATURE > 101 F Hydrocodone Bitart/Acetaminophen 1 tab 08/02/18 07:00 08/15/18 06:41 Kellogg 5/325 PO 1 tab Q4H PRN Administration FOR PAIN SCALE 2 TO 10 Amlodipine Besylate 5 mg 07/28/18 09:00 08/14/18 09:06 Norvasc PO 5 mg DAILY HITESH Administration Lipase/Protease/Amylase 1 cap 07/28/18 09:30 08/14/18 17:30 Creon 60 PO 1 cap TIDPC HITESH Administration Calcium Carbonate 500 mg 08/14/18 21:00 08/14/18 22:10 Tums Chew CHEW 500 mg BID HITESH Administration Duloxetine HCl 20 mg 07/28/18 09:00 08/14/18 09:05 Cymbalta PO 20 mg DAILY HITESH Administration Fluconazole 100 mg 08/13/18 16:00 08/14/18 17:28 Diflucan PO 100 mg Q24H HITESH Administration Sodium Chloride 1,000 mls @ 75 mls/hr 08/03/18 15:02 08/15/18 07:21 Ns Inj IV.CONT Not Given .[id number] [facility] Methylprednisolone Sodium Succinate 60 mg 08/11/18 18:00 08/15/18 06:40 Solumedrol Inj IV.PUSH 60 mg Q6HR HITESH Administration Metoprolol Tartrate 25 mg 07/28/18 09:00 08/14/18 22:10 Lopressor PO 25 mg BID HITESH Administration Multi-Ingredient Ointment 1 applic 08/02/18 14:32 08/09/18 14:24 Blistex Lip [place] TOPICAL 1 applic Q1H PRN Administration DRY LIPS Nystatin 5 ml 08/13/18 18:00 08/14/18 22:11 Mycostatin Liq SWISH-SWAL 5 ml QID HITESH Administration Ondansetron HCl 4 mg 07/31/18 22:00 08/14/18 17:28 Zofran Inj IV.PUSH 4 mg Q4HR PRN Administration NAUSEA OR VOMITING Pantoprazole Sodium 40 mg 07/28/18 09:00 08/14/18 22:11 Protonix PO 40 mg BID HITESH Administration Sodium Chloride 2 ml 08/10/18 21:00 08/14/18 22:13 Ns Flush IV.FLUSH Not Given BID HITESH Sterile Water 200 ml 07/28/18 12:00 08/15/18 06:46 Free Water G-TUBE 200 ml Q6HR HITESH Administration Sucralfate 1 gm 07/28/18 09:00 08/14/18 17:29 Carafate PO 1 gm TID HITESH Administration Ursodiol 300 mg 07/28/18 09:00 08/14/18 22:11 Actigall PO 300 mg BID HITESH Administration Objective Remarks: GENERAL: Well-nourished, well-developed patient. Week. SKIN: Warm and dry. HEAD: Normocephalic. EYES: No scleral icterus. No injection or drainage. NECK: Supple, trachea midline. No JVD or lymphadenopathy. LYMPHATIC: No adenopathy. CARDIOVASCULAR: Regular rate and rhythm without murmurs. RESPIRATORY: Breath sounds equal bilaterally. No accessory muscle use. GASTROINTESTINAL: Abdomen soft, tender in the mid abdomen. No rebound or rigidity. Positive bowel sounds. EXTREMITIES: No cyanosis, or edema. MUSCULOSKELETAL: Adequate muscle tone. NEUROLOGICAL: No obvious focal deficit. Awake, alert, and oriented x3. PSYCHIATRIC: Appropriate mood and affect; insight and judgment normal. Assessment/Plan (1) Idiopathic pancreatitis Code(s): K85.00 - Status: Acute (2) Anemia Code(s): D64.9 - Status: Chronic (3) Leukocytosis Code(s): D72.829 - Status: Acute - Plan 1. Chronic leukocytosis, most consistent with a leukemoid reaction. She has had fluctuating white blood cell counts for several years that usually coincide with a hospital admissions and exacerbation of pancreatitis. In February 2017, she had flow cytometry which did not show any abnormal immunophenotype and no evidence of leukemia. JAK2 mutation and FISH study for BCR-ABL at that time was also negative. During this hospital stay, her white blood cell count trended up from 21,000 to 35,000. There was also evidence of bandemia. I think this is most consistent with a reactive process. August 11, 2018. Sed rate and C-reactive protein both significantly elevated Consistent with inflammatory process. This is likely the reason for leukocytosis. I doubt that she has underlying bone marrow disorder. August 12, 2018. WBC trended up to 40.6. This may be due to the steroid which was started yesterday. August 15, 2018. Patient's abdominal pain slightly better since started on steroid. WBC has trended down to 26.7. She remains afebrile. Infectious disease is following. 2. Chronic anemia, which is multifactorial due to chronic kidney disease as well as chronic inflammatory disease. Her hemoglobin trended down from 9.9 to 8.4 during this hospital stay. We will check iron studies and vitamin studies. Can consider giving her Epogen if her hemoglobin continues to trend down. She has no evidence of bleeding at this time. August 11, 2018. Iron study and vitamin study did not show any deficiency. The anemia is secondary to chronic kidney disease and chronic inflammatory disease. Her hemoglobin is stable. August 04, 2018. Hemoglobin stable at 7.7. No evidence of bleeding. August 15, 2018. She received 2 units of PRBC transfusion and hemoglobin up to 11.1. 3. Fluctuating thrombocytosis. She has mild thrombocytosis intermittently, again consistent with a reactive process. August 11, 2018. Thrombocytosis is secondary to reactive process. August 12, 2018. Platelet count trended back down to 423,000. 4. Recurrent pancreatitis. This has been going on for more than 5 years. She recently had an endoscopic retrograde cholangiopancreatography with biliary stent exchange. She was started on Solu-Medrol and her pain seems to be better. RECOMMENDATIONS: 1. Continue to monitor CBC. 2. I anticipate her white blood cell count will trend down when her pancreatitis subsides. (1) Idiopathic pancreatitis Qualifiers: (2) Anemia Qualifiers: Anemia type: unspecified type Qualified Code(s): D64.9 - Anemia, unspecified
[2018-08-15 08:00] LABS: Baso % (Auto) 0.2 % (0.0-2.0); Eos % (Auto) 0.1 % (0.0-4.0); Hematocrit 33.7 % (35.0-46.0); Hemoglobin 11.2 gm/dL (11.6-15.3); Lymph # (Auto) 0.5 th/mm3 (1.0-4.8); Lymph % (Auto) 2.5 % (9.0-44.0); Mean Corpuscular HGB Conc 33.1 % (32.0-36.0); Mean Corpuscular Volume 84.6 fL (80.0-100.0); Mean Platelet Volume 7.3 fL (7.0-11.0); Mono # (Auto) 0.2 th/mm3 (0.0-0.9); Mono % (Auto) 0.8 % (0.0-8.0); Neut # (Auto) 18.1 th/mm3 (1.8-7.7); Neut % (Auto) 96.4 % (16.0-70.0); Platelet Count 448 th/mm3 (150-450); Red Blood Count 3.99 mil/mm3 (4.00-5.30); Red Cell Distribution Width 17.2 % (11.6-17.2); White Blood Count 18.8 th/mm3 (4.0-11.0)
[2018-08-15 08:37] LABS: Hypersegmented Neutrophils 1+
[2018-08-15] MEDS: Sucralfate 1 GM Tablet PO SCH ×3 (08:58→17:49)
[2018-08-15] MEDS: amLODIPine 5 MG Tablet PO SCH (08:58)
[2018-08-15] MEDS: Lipase/Protease/Amylase 12/38/60 DR Capsule PO SCH ×3 (08:58→17:49)
[2018-08-15] MEDS: Metoprolol Tartrate 25 MG Tablet PO SCH ×2 (08:58→21:37)
[2018-08-15] MEDS: Nystatin Liq 500,000 UNIT/5 ML UDC SWISH-SWAL SCH ×4 (08:59→21:37)
--- NOTE | 2018-08-15 08:59 | P.PNIM ---
Subjective Interval history: Follow up: Idiopathic pancreatitis and abd pain Patient sitting up in bed smiling eating grits, TF running reports abd pain improving Physical Exam Vital signs: Vital Signs 08/14/18 12:00 08/14/18 16:00 08/14/18 20:00 Temperature 98.1 F 98.7 F 98.0 F Pulse Rate 84 93 H 96 H Respiratory Rate 17 17 17 Blood Pressure 154/80 H 144/74 H 167/84 H Pulse Oximetry 97 99 99 08/15/18 00:00 08/15/18 08:00 Temperature 97.9 F 97.3 F L Pulse Rate 85 89 Respiratory Rate 18 16 Blood Pressure 156/86 H 155/73 H Pulse Oximetry 98 98 Intake & Output 08/14/18 08/15/18 08/15/18 18:59 06:59 18:59 Intake Total 1530 / 1530 1320 / 1320 Output Total 625 / 625 500 / 500 300 / 300 Balance 905 / 905 820 / 820 -300 / -300 Weight 64.3 kg Intake: IV 1110 / 1110 1000 / 1000 NS Inj 1,000 ML @ 75 mls/hr IV. 1000 / 1000 1000 / 1000 CONT .[id number] [facility] Rx#:[id number] Calcium Gluconate Inj 1 GM In 110 / 110 NS Inj 100 ML @ 110 mls/hr IV. SIG ONCE ONE Rx#:[id number] Oral 420 / 420 120 / 120 Water Bolus Amount 200 / 200 Output: Urine 625 / 625 500 / 500 300 / 300 Other: Date of Last Bowel Movement 08/14/18 # Bowel Movements 2 Narrative: GENERAL: This is a 82 year old female, well-developed patient, in no apparent distress. CARDIO: Regular RESP: CTA bilaterally. ABD: +BS, soft, nontender, nondistended. GJ tube in place, no drainage noted at the insertion site EXT: No edema. Results - Labs CBC & Chem 7: 08/15/18 07:48 08/15/18 04:20 Laboratory Results - last 24 hr 08/14/18 08/15/18 08/15/18 09:40 04:20 07:48 WBC 18.8 H RBC 3.99 L Hgb 11.2 L Hct 33.7 L MCV 84.6 MCH 28.0 MCHC 33.1 RDW 17.2 Plt Count 448 MPV 7.3 Prelim Diff (Auto) Slide review pending Neut % (Auto) 96.4 H Lymph % (Auto) 2.5 L [place] % (Auto) 0.8 Eos % (Auto) 0.1 Baso % (Auto) 0.2 Neut # (Auto) 18.1 H Lymph # (Auto) 0.5 L [place] # (Auto) 0.2 Eos # (Auto) 0.0 Baso # (Auto) 0.0 WBC Differential . Diff Scan Auto diff confirmed Differential Comment . Hypersegmented Neuts 1+ H Sodium 137 Potassium 4.0 D 4.9 D Chloride 107 Carbon Dioxide 17.8 L Anion Gap 12 BUN 60 H Creatinine 3.30 H Estimated GFR 16 L Random Glucose 165 H Calcium 6.8 L* Prot Corrected Calcium 7.4 L* Total Bilirubin 0.2 AST 31 ALT 27 Alkaline Phosphatase 171 H Total Protein 5.9 L D Albumin 1.7 L Assessment and Plan - Assessment (1) Idiopathic pancreatitis Code(s): K85.00 - Idiopathic acute pancreatitis without necrosis or infection Status: Acute Plan: Idiopathic pancreatitis - Patient is an 82 y/o AAF with recurrent idiopathic pancreatitis. She has been hospitalized numerous times for issues with pain control related to recurrent pancreatitis. Her last admission was from 07/13/18 to 07/26/18 due to WAYNE, idiopathic pancreatitis and had her GJ tube exchanged 07/25/18. - Patient again presented to the ER last night due to worsening abd pain associated with nausea but no vomiting. Patient reports that she always had mild epigastric pain, but yesterday evening it again became more severe and is associated with nausea but not vomiting. Denies fever or chills, chest pain, cough, difficulty flushing J tube, or diarrhea. - On admission WBC 21.6, BUN 44, creatinine 2.60 and lipase 2673. - CT abd/pelvis was done and revealed: 1. Postoperative changes of biliary stent with biliary drainage catheter passing through the stent. Gastrojejunostomy tube again noted. 2. Mild stranding of fat around the pancreas could indicate a mild pancreatitis. 3. 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 - PO pain medication as needed - Appreciate input from GI. - Pt underwent repeat ERCP with stent exchange, 08/02/18 (ERCP and stent exchange cancelled on 08/01 as patient's daughter needed to talk with Dr. Ortega prior to signing consent.). According to the procedure report, the common bile duct had multiple filling defects which were able to be cleaned out and once cleaned he was able to clearly see the ingrowth into the old metal stent and so a 10 [place] 40 mm stent was placed within the first metal stent and it protruded about a centimeter into the duodenum with good drainage noted. The intrahepatics appeared to be unremarkable - Dietary recommended TF with Suplena with goal rate 40mls/hr, orders placed for this for discharge as pt was previously on Jevity but complained of diarrhea. - Pts lipase started to trend slightly up on 08/07 and 08/08 - WBC 21.6 (07/28), 24.9 (07/29), 22.6 (07/30), 24 (07/31), 22.1 (08/02), 31.4 (08/03) , 29.2 (08/04), 23.5 (08/05), 34.9 (08/08), 33.0 (08/09), 40.6 (08/12) - lipase 2673 (07/28), 2471 (07/29), 758 (07/30), 215 (08/10), 155 (08/02), 730 (08/03 ), 509 (08/04), 423 (08/05), 708 (08/07), 768 (08/08), 596 (08/09), 459 (08/10/18), 271 (08/12) - Repeat labs in AM - On 08/07 the pts nurse reported that when flushing the J-tube that the water was coming up through the pts insertion site in the skin. - GJ tube reevaluated by Dr. Lala (08/08/18) G and J ports both patent. No findings of leakage from tube or through dermatotomy. Patient does appear to have some stasis of material in gastric lumen probably secondary to gastroparesis. Placed G-port to gravity drainage. - J-tube is reassessed by IR (08/13) and functional after flushine with warm water - continue clears - norco prn - appreciate input from Palliative Medicine - Case d/w GI [employer] for Dr. Bravo (08/12) - Appreciate input from Dr. Stewart. - IV solumedrol 60 mg IV Q6H (08/11 - 08/15) -> start to taper Solumedrol decreased to 60 mg IV Q12H (08/15) - Pt's daughter Caitlyn Perez was updated by phone by Dr. Eddy () - ID consulted per Ms. Perez's request. - SCDs for DVT prophylaxis - supportive care Chronic kidney failure - Pt with baseline stage 3 CKD, pt follows with Dr. Melara - avoid nephrotoxic agents - Per RN several OTC Advil found hidden in a tissue box at patient's bedside. Discussed with patient and nurse that she should not be taking Advil given her renal function and should not be taking outside medications - Cr 3.37 (08/10), 3/48 (08/12), 3.46 (08/13), 3.39 (08/14), 3.30 (08/15) - continue IVFs - repeat BMP in AM Hypernatremia - resolved - sodium 151 (08/09), 147 (08/10), 145 (08/11), 136 (08/12), 137 (08/15) - patient had not received free water flush due to concern regarding GJ tube Leukocytosis, persistent - [facility] Medical team has cared for Ms. Larsen for several years and many different admissions. - Pt tends to have marked persistent leukocytosis during her admissions which correlated to flares of her idiopathic pancreatitis - paradoxically, pt's leukocytosis has improved in the past, as well as her clinical condition with steroids - possibly d/t to a reactive process - Pt has had NO fever above 99.9F this entire admission - There is NO indication of infection. Pt has NO c/o cough, SOB, or dysuria. There is NO diarrhea. - appreciate input from Hematology, Dr. Perea. Leukocytosis is likely d/t Pancreatitis. - Pt/family request consultation from Infectious Disease, concerned that leukocytosis is d/t infection. - WBC 40.6 (08/12), 38.1 (08/13), 26.7 (08/14), 18.1 (08/15) - I appreciate the input from ID, Dr. Chahal. - PO diflucan and nystatin s/s HTN (hypertension) - Cont. home meds - Monitor GERD (gastroesophageal reflux disease) - PPI Hypomagnesemia - repleted Hypokalemia - resoved anemia - d/t chronic disease, stable. - this diagnosis has been explored during prior hospitalizations and d/w Hematology - anemia felt to be d/t underlying disease processes - Hg 7.6 (08/13), 11.1 (08/14), 11.2 (08/15) - transfuse 2 units PRBCs - repeat CBC in AM The exam, history, and the medical decision-making described in the above note were completed with the assistance of the mid-level provider. I reviewed and agree with the findings presented. I attest that I had a [id number] encounter with the patient on the same day, and personally performed and documented my assessment and findings in the medical record. (1) Idiopathic pancreatitis Qualifiers:
[2018-08-15] MEDS: Sodium Chloride 0.9% 2 ML Flush BID IV.FLUSH SCH ×2 (09:53→21:37)
[2018-08-15] MEDS: Fluconazole 100 MG Tablet PO SCH (15:22)
--- NOTE | 2018-08-15 15:40 | P.PNID ---
Subjective Remarks: She does complain of abdominal pain currently. She notes that the pain is across the abdomen. No fever. Denies chills. White blood cell count is improving. This is an 82-year-old black female who was admitted to the hospital and felt to have pancreatitis. The patient has been managed for such. The patient was noted to have leukocytosis with an elevated white blood cell count and this is a reason why this consultation was requested. On admission, the white count was 21.6 and it has remained elevated and now is higher than previous. The white count climbed up to 40.6 yesterday, which is the highest since admission, and then today is 38.1. The patient has no fever. She has been evaluated by the hematology/oncology and it is felt that the elevated white blood cell count may be reactive and it does not appear that she has any evidence of leukemia. She had a workup with a CT scan of the abdomen which showed mild stranding of fat around the pancreas, which could indicate a mild pancreatitis, and postoperative changes of biliary stent. Past Medical History: PAST MEDICAL HISTORY: Hypertension, gastroesophageal reflux disease, chronic kidney disease, history of blood transfusion reaction, idiopathic pancreatitis, history of total knee replacement on the left, history of cholecystectomy, gastrojejunostomy tube placement. Allergies/Adverse Reactions: Allergies No Known Allergies Allergy (Unverified 05/16/18 07:25) Objective Vital Signs 08/14/18 16:00 08/14/18 20:00 08/15/18 00:00 Temperature 98.7 F 98.0 F 97.9 F Pulse Rate 93 H 96 H 85 Respiratory Rate 17 17 18 Blood Pressure 144/74 H 167/84 H 156/86 H Pulse Oximetry 99 99 98 08/15/18 08:00 08/15/18 12:00 08/15/18 12:18 Temperature 97.3 F L 97.3 F L Pulse Rate 89 87 Respiratory Rate 16 18 17 Blood Pressure 155/73 H 167/79 H Pulse Oximetry 98 98 Intake & Output 08/14/18 08/15/18 08/15/18 18:59 06:59 18:59 Intake Total 1530 / 1530 1320 / 1320 Output Total 625 / 625 500 / 500 300 / 300 Balance 905 / 905 820 / 820 -300 / -300 Weight 64.3 kg Intake: IV 1110 / 1110 1000 / 1000 NS Inj 1,000 ML @ 75 mls/hr IV. 1000 / 1000 1000 / 1000 CONT .[id number] [facility] Rx#:[id number] Calcium Gluconate Inj 1 GM In 110 / 110 NS Inj 100 ML @ 110 mls/hr IV. SIG ONCE ONE Rx#:[id number] Oral 420 / 420 120 / 120 Water Bolus Amount 200 / 200 Output: Urine 625 / 625 500 / 500 300 / 300 Other: Date of Last Bowel Movement 08/14/18 08/14/18 # Bowel Movements 2 Lab - Hematology Results 08/14/18 08/15/18 03:39 07:48 WBC 26.7 H 18.8 H RBC 3.90 L 3.99 L Hgb 11.1 L D 11.2 L Hct 33.0 L 33.7 L MCV 84.5 84.6 MCH 28.4 28.0 MCHC 33.6 33.1 RDW 17.7 H 17.2 Plt Count 466 H 448 MPV 7.9 7.3 Prelim Diff (Auto) Slide review pending Slide review pending Neut % (Auto) 95.6 H 96.4 H Lymph % (Auto) 2.9 L 2.5 L [place] % (Auto) 1.1 0.8 Eos % (Auto) 0.0 0.1 Baso % (Auto) 0.4 0.2 Neut # (Auto) 25.5 H 18.1 H Lymph # (Auto) 0.8 L 0.5 L [place] # (Auto) 0.3 0.2 Eos # (Auto) 0.0 0.0 Baso # (Auto) 0.1 0.0 WBC Differential Manual diff final . Diff Scan Auto diff confirmed Seg Neuts % (Manual) 98 H Metamyelocytes % (Man) 1 Myelocytes % (Man) 1 H Abs Neuts (Manual) 26.7 H Differential Comment . . Hypersegmented Neuts 1+ H 1+ H Platelet Estimate High H Platelet Morphology Normal Dimorphic RBCs Present H Rex Cells 1+ H Lab - Chemistry Results 08/14/18 08/14/18 08/15/18 03:39 09:40 04:20 Sodium 135 L 137 Potassium 5.4 H D 4.0 D 4.9 D Chloride 102 107 Carbon Dioxide 18.3 L 17.8 L Anion Gap 15 12 BUN 55 H 60 H Creatinine 3.39 H 3.30 H Estimated GFR 16 L 16 L Random Glucose 163 H 165 H Calcium 6.9 L* 6.8 L* Prot Corrected Calcium 7.1 L* 7.4 L* Magnesium 1.7 Total Bilirubin 0.2 AST 31 ALT 27 Alkaline Phosphatase 171 H Total Protein 6.7 5.9 L D Albumin 1.7 L Imaging: ITS Impressions Abdomen/Pelvis CT 07/28/18 01:18 CONCLUSION: 1. Postoperative changes of biliary stent with biliary drainage catheter passing through the stent. Gastrojejunostomy tube again noted. 2. Mild stranding of fat around the pancreas could indicate a mild pancreatitis. 3. 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 GI Procedure 08/02/18 00:00 CONCLUSION: A biliary stent has been placed. It is in good position. There is good filling of the hepatic ducts. Tube Check 08/08/18 00:00 CONCLUSION: 1. Uncomplicated tube injection as above. The tube was not exchanged. Physical Exam: PHYSICAL EXAMINATION: GENERAL: Looks lethargic. alert and oriented. HEENT: Head is atraumatic. Extraocular movements are grossly intact. Pupils are reactive to light. No icterus. Oropharynx with moist mucosa. Positive thrush. NECK: Supple without adenopathy. LUNGS: Decreased breath sounds. No audible rhonchi. ABDOMEN: Bowel sounds present. Soft. Tenderness at the mid abdomen. EXTREMITIES: No clubbing, cyanosis or edema. SKIN: No rash. The skin of the legs is dry. NEUROLOGIC: Nonfocal. PSYCHIATRIC: Calm and cooperative. Assessment and Plan - Plan IMPRESSION: 1. Leukocytosis. This is probably reactive. White blood cell count is improving. The patient received Solu-Medrol, which may lead to even further increase in the white count, but her white count was elevated prior to the Solu-Medrol. The patient has a diagnosis of pancreatitis, which could also be contributing to the white blood cell count elevation as well. 2. Recurrent pancreatitis. 3. Oral thrush. RECOMMENDATIONS: 1. Continue nystatin swish and swallow for the thrush. 2. Give a 10-day course of Diflucan po. 3. Monitor the white blood cell count. I will sign off now.
[2018-08-16] MEDS: Sod Chloride 0.9% Inj 1,000 ML IV.CONT SCH ×2 (04:02→09:55)
--- NOTE | 2018-08-16 07:29 | P.PNONC ---
Subjective Interval history: Patient is slowly improving. She still has abdominal pain of 8 out of 10. She is able to tolerate small amount of food. She denies any diarrhea this morning. She remains afebrile. Objective Vital Signs/Intake & Output: Vital Signs 08/15/18 08:00 08/15/18 12:00 08/15/18 12:18 Temperature 97.3 F L 97.3 F L Pulse Rate 89 87 Respiratory Rate 16 18 17 Blood Pressure 155/73 H 167/79 H Pulse Oximetry 98 98 08/15/18 16:00 08/15/18 20:00 08/15/18 23:49 Temperature 97.7 F 97.6 F 97.3 F L Pulse Rate 86 89 94 H Respiratory Rate 18 16 16 Blood Pressure 158/83 H 162/84 H 152/82 H Pulse Oximetry 98 99 98 08/16/18 03:37 Temperature 97.6 F Pulse Rate 92 H Respiratory Rate 16 Blood Pressure 154/80 H Pulse Oximetry 98 Intake & Output 08/15/18 08/16/18 08/16/18 18:59 06:59 18:59 Intake Total 1788 / 1788 1896 / 1896 Output Total 1200 / 1200 1000 / 1000 Balance 588 / 588 896 / 896 Weight 65.8 kg Intake: IV 1000 / 1000 1000 / 1000 NS Inj 1,000 ML @ 75 mls/hr IV. 1000 / 1000 1000 / 1000 CONT .[id number] [facility] Rx#:[id number] Oral 480 / 480 240 / 240 Tube Feeding 308 / 308 256 / 256 Water Bolus Amount 400 / 400 Output: Urine 1200 / 1200 1000 / 1000 Other: Date of Last Bowel Movement 08/14/18 08/15/18 # Bowel Movements 1 1 Result Diagrams: 08/15/18 07:48 08/15/18 04:20 Laboratory Results: Laboratory Results - last 24 hr 08/15/18 07:48 WBC 18.8 H RBC 3.99 L Hgb 11.2 L Hct 33.7 L MCV 84.6 MCH 28.0 MCHC 33.1 RDW 17.2 Plt Count 448 MPV 7.3 Prelim Diff (Auto) Slide review pending Neut % (Auto) 96.4 H Lymph % (Auto) 2.5 L [place] % (Auto) 0.8 Eos % (Auto) 0.1 Baso % (Auto) 0.2 Neut # (Auto) 18.1 H Lymph # (Auto) 0.5 L [place] # (Auto) 0.2 Eos # (Auto) 0.0 Baso # (Auto) 0.0 WBC Differential . Diff Scan Auto diff confirmed Differential Comment . Hypersegmented Neuts 1+ H Medications: Active Medications Generic Name Dose Route Start Last Admin Trade Name Freq PRN Reason Stop Dose Admin Acetaminophen 650 mg 07/30/18 21:53 08/09/18 20:37 Tylenol PO 650 mg Q6H PRN Administration TEMPERATURE > 101 F Hydrocodone Bitart/Acetaminophen 1 tab 08/02/18 07:00 08/16/18 03:57 [place] Ari 5/325 PO 1 tab Q4H PRN Administration FOR PAIN SCALE 2 TO 10 Amlodipine Besylate 5 mg 07/28/18 09:00 08/15/18 08:58 Norvasc PO 5 mg DAILY [facility] Administration Lipase/Protease/Amylase 1 cap 07/28/18 09:30 08/15/18 17:[address] PO 1 cap TIDPC [facility] Administration Calcium Carbonate 500 mg 08/14/18 21:00 08/15/18 21:37 Tums Chew CHEW 500 mg BID [facility] Administration Duloxetine HCl 20 mg 07/28/18 09:00 08/15/18 08:59 Cymbalta PO 20 mg DAILY [facility] Administration Fluconazole 100 mg 08/13/18 16:00 08/15/18 15:22 Diflucan PO 100 mg Q24H [facility] Administration Sodium Chloride 1,000 mls @ 75 mls/hr 08/03/18 15:02 08/16/18 04:02 Ns Inj IV.CONT 75 mls/hr .[id number] [facility] Administration Methylprednisolone Sodium Succinate 60 mg 08/15/18 09:00 08/15/18 21:37 Solumedrol Inj IV.PUSH 60 mg Q12H [facility] Administration Metoprolol Tartrate 25 mg 07/28/18 09:00 08/15/18 21:37 Lopressor PO 25 mg BID [facility] Administration Multi-Ingredient Ointment 1 applic 08/02/18 14:32 08/09/18 14:24 Blistex Lip [place] TOPICAL 1 applic Q1H PRN Administration DRY LIPS Nystatin 5 ml 08/13/18 18:00 08/15/18 21:37 Mycostatin Liq SWISH-SWAL 5 ml QID [facility] Administration Ondansetron HCl 4 mg 07/31/18 22:00 08/16/18 03:57 Zofran Inj IV.PUSH 4 mg Q4HR PRN Administration NAUSEA OR VOMITING Pantoprazole Sodium 40 mg 07/28/18 09:00 08/15/18 21:37 Protonix PO 40 mg BID [facility] Administration Sodium Chloride 2 ml 08/10/18 21:00 08/15/18 21:37 Ns Flush IV.FLUSH Not Given BID [facility] Sterile Water 200 ml 07/28/18 12:00 08/16/18 06:14 Free Water G-TUBE 200 ml Q6HR [facility] Administration Sucralfate 1 gm 07/28/18 09:00 08/15/18 17:49 Carafate PO 1 gm TID [facility] Administration Ursodiol 300 mg 07/28/18 09:00 08/15/18 21:37 Actigall PO 300 mg BID [facility] Administration Objective Remarks: GENERAL: Well-nourished, well-developed patient. Week. SKIN: Warm and dry. HEAD: Normocephalic. EYES: No scleral icterus. No injection or drainage. NECK: Supple, trachea midline. No JVD or lymphadenopathy. LYMPHATIC: No adenopathy. CARDIOVASCULAR: Regular rate and rhythm without murmurs. RESPIRATORY: Breath sounds equal bilaterally. No accessory muscle use. GASTROINTESTINAL: Abdomen soft, tender in the mid abdomen. No rebound or rigidity. Positive bowel sounds. EXTREMITIES: No cyanosis, or edema. MUSCULOSKELETAL: Adequate muscle tone. NEUROLOGICAL: No obvious focal deficit. Awake, alert, and oriented x3. PSYCHIATRIC: Appropriate mood and affect; insight and judgment normal. Assessment/Plan (1) Idiopathic pancreatitis Code(s): K85.00 - Idiopathic acute pancreatitis without necrosis or infection Status: Acute (2) Anemia Code(s): D64.9 - Anemia, unspecified Status: Chronic (3) Leukocytosis Code(s): D72.829 - Elevated white blood cell count, unspecified Status: Acute - Plan 1. Chronic leukocytosis, most consistent with a leukemoid reaction. She has had fluctuating white blood cell counts for several years that usually coincide with a hospital admissions and exacerbation of pancreatitis. In February 2017, she had flow cytometry which did not show any abnormal immunophenotype and no evidence of leukemia. JAK2 mutation and FISH study for BCR-ABL at that time was also negative. During this hospital stay, her white blood cell count trended up from 21,000 to 35,000. There was also evidence of bandemia. I think this is most consistent with a reactive process. August 11, 2018. Sed rate and C-reactive protein both significantly elevated Consistent with inflammatory process. This is likely the reason for leukocytosis. I doubt that she has underlying bone marrow disorder. August 12, 2018. WBC trended up to 40.6. This may be due to the steroid which was started yesterday. August 15, 2018. Patient's abdominal pain slightly better since started on steroid. WBC has trended down to 26.7. She remains afebrile. Infectious disease is following. August 16, 2018. White blood cell count trended down to 18.8. She remains afebrile. It appears that she is responding to steroids with decreased inflammation. 2. Chronic anemia, which is multifactorial due to chronic kidney disease as well as chronic inflammatory disease. Her hemoglobin trended down from 9.9 to 8.4 during this hospital stay. We will check iron studies and vitamin studies. Can consider giving her Epogen if her hemoglobin continues to trend down. She has no evidence of bleeding at this time. August 11, 2018. Iron study and vitamin study did not show any deficiency. The anemia is secondary to chronic kidney disease and chronic inflammatory disease. Her hemoglobin is stable. August 04, 2018. Hemoglobin stable at 7.7. No evidence of bleeding. August 15, 2018. She received 2 units of PRBC transfusion and hemoglobin up to 11.1. August 16, 2018. Hemoglobin remains stable at 11.2 since transfusion. 3. Fluctuating thrombocytosis. She has mild thrombocytosis intermittently, again consistent with a reactive process. August 11, 2018. Thrombocytosis is secondary to reactive process. August 12, 2018. Platelet count trended back down to 423,000. 4. Recurrent pancreatitis. This has been going on for more than 5 years. She recently had an endoscopic retrograde cholangiopancreatography with biliary stent exchange. She was started on Solu-Medrol and her pain seems to be better. RECOMMENDATIONS: 1. Continue to monitor CBC. 2. I anticipate her white blood cell count will trend down when her pancreatitis subsides. (1) Idiopathic pancreatitis Qualifiers: (2) Anemia Qualifiers: Anemia type: unspecified type Qualified Code(s): D64.9 - Anemia, unspecified
[2018-08-16] MEDS: MethylPREDNISolone Sod Succinate Inj 125 MG/2 ML Vial IV.PUSH SCH ×2 (08:00→21:07)
[2018-08-16] MEDS: Metoprolol Tartrate 25 MG Tablet PO SCH ×2 (08:03→21:06)
[2018-08-16] MEDS: Nystatin Liq 500,000 UNIT/5 ML UDC SWISH-SWAL SCH ×4 (08:03→21:06)
[2018-08-16] MEDS: amLODIPine 5 MG Tablet PO SCH (08:03)
[2018-08-16] MEDS: Sodium Chloride 0.9% 2 ML Flush BID IV.FLUSH SCH ×2 (08:04→21:06)
[2018-08-16] MEDS: Sucralfate 1 GM Tablet PO SCH ×3 (08:12→17:28)
[2018-08-16 08:15] LABS: Baso % (Auto) 0.2 % (0.0-2.0); Hematocrit 34.8 % (35.0-46.0); Hemoglobin 11.6 gm/dL (11.6-15.3); Lymph # (Auto) 0.5 th/mm3 (1.0-4.8); Lymph % (Auto) 2.8 % (9.0-44.0); Mean Corpuscular HGB Conc 33.2 % (32.0-36.0); Mean Corpuscular Hemoglobin 28.2 pg (27.0-34.0); Mean Corpuscular Volume 84.9 fL (80.0-100.0); Mean Platelet Volume 7.5 fL (7.0-11.0); Mono # (Auto) 0.2 th/mm3 (0.0-0.9); Neut # (Auto) 17.8 th/mm3 (1.8-7.7); Platelet Count 451 th/mm3 (150-450); Red Cell Distribution Width 17.2 % (11.6-17.2); White Blood Count 18.5 th/mm3 (4.0-11.0)
[2018-08-16 08:53] LABS: Calcium 7.4 mg/dL (8.5-10.1); Carbon Dioxide 17.8 meq/L (21.0-32.0); Potassium 3.7 meq/L (3.5-5.1); Total Protein 6.4 g/dL (6.4-8.2)
--- NOTE | 2018-08-16 09:00 | P.PNIM ---
Subjective Interval history: Follow up: Idiopathic pancreatitis and abd pain Patient sitting up in bed, TF running reports abd pain 8/10, per patient the lowest her pain ever gets is 7/10 Physical Exam Vital signs: Vital Signs 08/15/18 12:00 08/15/18 12:18 08/15/18 16:00 Temperature 97.3 F L 97.7 F Pulse Rate 87 86 Respiratory Rate 18 17 18 Blood Pressure 167/79 H 158/83 H Pulse Oximetry 98 98 08/15/18 20:00 08/15/18 23:49 08/16/18 03:37 Temperature 97.6 F 97.3 F L 97.6 F Pulse Rate 89 94 H 92 H Respiratory Rate 16 16 16 Blood Pressure 162/84 H 152/82 H 154/80 H Pulse Oximetry 99 98 98 08/16/18 08:00 Temperature 97.3 F L Pulse Rate 102 H Respiratory Rate 17 Blood Pressure 172/102 H Pulse Oximetry 97 Intake & Output 08/15/18 08/16/18 08/16/18 18:59 06:59 18:59 Intake Total 1788 / 1788 1896 / 1896 Output Total 1200 / 1200 1000 / 1000 Balance 588 / 588 896 / 896 Weight 65.8 kg Intake: IV 1000 / 1000 1000 / 1000 NS Inj 1,000 ML @ 75 mls/hr IV. 1000 / 1000 1000 / 1000 CONT .[id number] HITESH Rx#:[id number] Oral 480 / 480 240 / 240 Tube Feeding 308 / 308 256 / 256 Water Bolus Amount 400 / 400 Output: Urine 1200 / 1200 1000 / 1000 Other: Date of Last Bowel Movement 08/14/18 08/15/18 # Bowel Movements 1 1 Narrative: GENERAL: This is a 82 year old female, well-developed patient, in no apparent distress. CARDIO: Regular RESP: CTA bilaterally. ABD: +BS, soft, nontender, nondistended. GJ tube in place, no drainage noted at the insertion site EXT: No edema. Results - Labs CBC & Chem 7: 08/16/18 06:27 08/15/18 04:20 Laboratory Results - last 24 hr 08/16/18 06:27 WBC 18.5 H RBC 4.10 Hgb 11.6 Hct 34.8 L MCV 84.9 MCH 28.2 MCHC 33.2 RDW 17.2 Plt Count 451 H MPV 7.5 Prelim Diff (Auto) Slide review pending Neut % (Auto) 96.0 H Lymph % (Auto) 2.8 L Ray % (Auto) 1.0 Eos % (Auto) 0.0 Baso % (Auto) 0.2 Neut # (Auto) 17.8 H Lymph # (Auto) 0.5 L Ray # (Auto) 0.2 Eos # (Auto) 0.0 Baso # (Auto) 0.0 Differential Comment . Assessment and Plan - Assessment (1) Idiopathic pancreatitis Code(s): K85.00 - Idiopathic acute pancreatitis without necrosis or infection Status: Acute Plan: Idiopathic pancreatitis - Patient is an 82 y/o AAF with recurrent idiopathic pancreatitis. She has been hospitalized numerous times for issues with pain control related to recurrent pancreatitis. Her last admission was from 07/13/18 to 07/26/18 due to WAYNE, idiopathic pancreatitis and had her GJ tube exchanged 07/25/18. - Patient again presented to the ER last night due to worsening abd pain associated with nausea but no vomiting. Patient reports that she always had mild epigastric pain, but yesterday evening it again became more severe and is associated with nausea but not vomiting. Denies fever or chills, chest pain, cough, difficulty flushing J tube, or diarrhea. - On admission WBC 21.6, BUN 44, creatinine 2.60 and lipase 2673. - CT abd/pelvis was done and revealed: 1. Postoperative changes of biliary stent with biliary drainage catheter passing through the stent. Gastrojejunostomy tube again noted. 2. Mild stranding of fat around the pancreas could indicate a mild pancreatitis. 3. 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 - PO pain medication as needed - Appreciate input from GI. - Pt underwent repeat ERCP with stent exchange, 08/02/18 (ERCP and stent exchange cancelled on 08/01 as patient's daughter needed to talk with Dr. Ortega prior to signing consent.). According to the procedure report, the common bile duct had multiple filling defects which were able to be cleaned out and once cleaned he was able to clearly see the ingrowth into the old metal stent and so a 10 Russian 40 mm stent was placed within the first metal stent and it protruded about a centimeter into the duodenum with good drainage noted. The intrahepatics appeared to be unremarkable - Dietary recommended TF with Suplena with goal rate 40mls/hr, orders placed for this for discharge as pt was previously on Jevity but complained of diarrhea. - Pts lipase started to trend slightly up on 08/07 and 08/08 - WBC 21.6 (07/28), 24.9 (07/29), 22.6 (07/30), 24 (07/31), 22.1 (08/02), 31.4 (08/03) , 29.2 (08/04), 23.5 (08/05), 34.9 (08/08), 33.0 (08/09), 40.6 (08/12) - lipase 2673 (07/28), 2471 (07/29), 758 (07/30), 215 (08/10), 155 (08/02), 730 (08/03 ), 509 (08/04), 423 (08/05), 708 (08/07), 768 (08/08), 596 (08/09), 459 (08/10/18), 271 (08/12) - 08/16 labs pending - Repeat labs in AM - On 08/07 the pts nurse reported that when flushing the J-tube that the water was coming up through the pts insertion site in the skin. - GJ tube reevaluated by Dr. Lala (08/08/18) G and J ports both patent. No findings of leakage from tube or through dermatotomy. Patient does appear to have some stasis of material in gastric lumen probably secondary to gastroparesis. Placed G-port to gravity drainage. - J-tube is reassessed by IR (08/13) and functional after flushine with warm water - continue clears - norco prn - appreciate input from Palliative Medicine - Case d/w GI BPM SOLUTION ARCHITECT for Dr. Bravo (08/12) - Appreciate input from Dr. Stewart. - IV solumedrol 60 mg IV Q6H (08/11 - 08/15) -> start to taper Solumedrol decreased to 60 mg IV Q12H (08/15) - Pt's daughter Caitlyn Perez was updated by phone by Dr. Eddy () - ID consulted per Ms. Perez's request. - Per ID IMPRESSION: 1. Leukocytosis. This is probably reactive. White blood cell count is improving. The patient received Solu-Medrol, which may lead to even further increase in the white count, but her white count was elevated prior to the Solu- Medrol. The patient has a diagnosis of pancreatitis, which could also be contributing to the white blood cell count elevation as well. 2. Recurrent pancreatitis. 3. Oral thrush. RECOMMENDATIONS: 1. Continue nystatin swish and swallow for the thrush. 2. Give a 10-day course of Diflucan po. 3. Monitor the white blood cell count. ID will sign off - SCDs for DVT prophylaxis - supportive care Chronic kidney failure - Pt with baseline stage 3 CKD, pt follows with Dr. Melara - avoid nephrotoxic agents - Per RN several OTC Advil found hidden in a tissue box at patient's bedside. Discussed with patient and nurse that she should not be taking Advil given her renal function and should not be taking outside medications - Cr 3.37 (08/10), 3/48 (08/12), 3.46 (08/13), 3.39 (08/14), 3.30 (08/15) - continue IVFs - repeat BMP in AM Hypernatremia - resolved - sodium 151 (08/09), 147 (08/10), 145 (08/11), 136 (08/12), 137 (08/15) - patient had not received free water flush due to concern regarding GJ tube Leukocytosis, persistent - [facility] Medical team has cared for Ms. Larsen for several years and many different admissions. - Pt tends to have marked persistent leukocytosis during her admissions which correlated to flares of her idiopathic pancreatitis - paradoxically, pt's leukocytosis has improved in the past, as well as her clinical condition with steroids - possibly d/t to a reactive process - Pt has had NO fever above 99.9F this entire admission - There is NO indication of infection. Pt has NO c/o cough, SOB, or dysuria. There is NO diarrhea. - appreciate input from Hematology, Dr. Perea. Leukocytosis is likely d/t Pancreatitis. - Pt/family request consultation from Infectious Disease, concerned that leukocytosis is d/t infection. - WBC 40.6 (08/12), 38.1 (08/13), 26.7 (08/14), 18.1 (08/15) - I appreciate the input from Dr. Tirso SIFUENTES. - PO diflucan and nystatin s/s HTN (hypertension) - Cont. home meds - Monitor GERD (gastroesophageal reflux disease) - PPI Hypomagnesemia - repleted Hypokalemia - resoved anemia - d/t chronic disease, stable. - this diagnosis has been explored during prior hospitalizations and d/w Hematology - anemia felt to be d/t underlying disease processes - Hg 7.6 (08/13), 11.1 (08/14), 11.2 (08/15) - transfuse 2 units PRBCs - repeat CBC in AM (1) Idiopathic pancreatitis Qualifiers:
[2018-08-16] MEDS: Lipase/Protease/Amylase 12/38/60 DR Capsule PO SCH ×3 (09:12→17:58)
[2018-08-16 09:18] LABS: Lymphocytes 5 % (9-44); Myelocytes 5 % (0-0); Platelet Morphology Normal (Normal); RBC Morphology Normal (Normal)
--- NOTE | 2018-08-16 14:56 | P.PNPAL ---
Reason for Visit Reason for visit: a. To assist with evaluation and management of symptoms including: Pain, nausea , debility b. To assist medical decision maker(s) with: better understanding of current medical conditions; weighing benefits/burdens of medical treatment options; making medical treatment decisions. Subjective Subjective/Interval History: Follow-up medically necessary for symptom management. Patient seen and examined in her room. She is in bed, awake endorsing abdominal pain. Patient states that the pain is across her abdomen and that she is also nauseated. She rates pain as 9/10 and states that after she takes medication her pain gets to 7/10 and it has never been below 7/10. Patient has required x7 prn doses of Hydrocodone/ acetaminophen 5/325 in the past 24hrs. Patient endorsing decreased oral intake due to nausea. Encouraged patient to request nausea medication when she feels nauseated. She has required x5 doses of Zofran 4mg in the past 24 hrs. Gastrojejunostomy site leaking, TF infusing at 10ml/hr. Bedside RN states that earlier on she changed a soaked gauze. Patient denies pain around GJ tube insertion site. Infectious disease Dr. Dorsey consulted on 08/13/18 to evaluate patient for leucocytosis, opined that leucocytosis is probably reactive versus occult infection or due to use of Solumedrol, recommended monitoring WBC and starting patient on Diflucan and nystatin for oral thrush. Infectious disease signed off on 08/15/18. Patient still want to be discharged home with home health PT, she does not want to go to a rehabilitation facility. Case discussed with bedside RN and Olga DAILY. Family/Friend Interactions: No family at bedside. . Advance Directives Health Care Surrogate: Completed, but not made available Durable Power of Street Superintendent: Completed, but not made available Health Care Surrogate Name and Number: HCP: Raj Perez Objective Vital Signs: Vital Signs 08/15/18 16:00 08/15/18 20:00 08/15/18 23:49 Temperature 97.7 F 97.6 F 97.3 F L Pulse Rate 86 89 94 H Respiratory Rate 18 16 16 Blood Pressure 158/83 H 162/84 H 152/82 H Pulse Oximetry 98 99 98 08/16/18 03:37 08/16/18 08:00 08/16/18 12:00 Temperature 97.6 F 97.3 F L 97.2 F L Pulse Rate 92 H 102 H 91 H Respiratory Rate 16 17 17 Blood Pressure 154/80 H 172/102 H 168/86 H Pulse Oximetry 98 97 97 08/16/18 12:43 Temperature Pulse Rate Respiratory Rate 17 Blood Pressure Pulse Oximetry Intake & Output 08/15/18 08/16/18 08/16/18 18:59 06:59 18:59 Intake Total 1788 / 1788 1896 / 1896 1000 / 1000 Output Total 1200 / 1200 1000 / 1000 Balance 588 / 588 896 / 896 1000 / 1000 Weight 65.8 kg Intake: IV 1000 / 1000 1000 / 1000 1000 / 1000 NS Inj 1,000 ML @ 75 mls/hr IV. 1000 / 1000 1000 / 1000 1000 / 1000 CONT .[id number] HITESH Rx#:[id number] Oral 480 / 480 240 / 240 Tube Feeding 308 / 308 256 / 256 Water Bolus Amount 400 / 400 Output: Urine 1200 / 1200 1000 / 1000 Other: Date of Last Bowel Movement 08/14/18 08/15/18 08/15/18 # Bowel Movements 1 1 Physical Exam: CONSTITUTIONAL/GENERAL: This is a chronically ill looking patient, complaining of abdominal pain and nausea. TUBES/LINES/DRAINS: PIV, GJ tube SKIN: No jaundice, rashes, or lesions. Ecchymoses on upper extremities. No wounds seen anteriorly. Skin temperature appropriate. Not diaphoretic. HEAD: Atraumatic. Normocephalic. EYES: PERRLA. No injection or drainage. Fundi not examined. ENT: Hearing grossly normal. No nasal bleeding or drainage. Moist oral mucosa NECK: Trachea midline. Supple, nontender. CARDIOVASCULAR: Regular rate and rhythm without murmurs, gallops, or rubs. No JVD. Peripheral pulses symmetric. RESPIRATORY/CHEST: Symmetric, unlabored respirations. Clear to auscultation. Breath sounds equal bilaterally. No wheezes, rales, or rhonchi. GASTROINTESTINAL: Abdomen soft, non-tender, nondistended. Guarding. Hypoactive Bowel sounds. GENITOURINARY: Without palpable bladder distension. Balderrama catheter in place. MUSCULOSKELETAL: Extremities without clubbing, cyanosis, or edema. No joint tenderness or effusion noted. No calf tenderness. No mottling or clubbing. NEUROLOGICAL: Alert, oriented to self, place and situation. Motor and sensory grossly within normal limits. Follows commands. Moves all extremities. PSYCHIATRIC: No obvious anxiety/depression. no apparent hallucinations or other psychotic thought process. Diagnostic Tests Laboratory: Laboratory Results - last 72 hr 08/13/18 08/13/18 08/14/18 13:40 16:25 03:39 WBC 26.7 H RBC 3.90 L Hgb 11.1 L D Hct 33.0 L MCV 84.5 MCH 28.4 MCHC 33.6 RDW 17.7 H Plt Count 466 H MPV 7.9 Prelim Diff (Auto) Slide review pending Neut % (Auto) 95.6 H Lymph % (Auto) 2.9 L [place] % (Auto) 1.1 Eos % (Auto) 0.0 Baso % (Auto) 0.4 Neut # (Auto) 25.5 H Lymph # (Auto) 0.8 L [place] # (Auto) 0.3 Eos # (Auto) 0.0 Baso # (Auto) 0.1 WBC Differential Manual diff final Diff Scan Seg Neuts % (Manual) 98 H Band Neuts % (Manual) Lymphocytes % (Manual) Metamyelocytes % (Man) 1 Myelocytes % (Man) 1 H Abs Neuts (Manual) 26.7 H Differential Comment . Hypersegmented Neuts 1+ H Platelet Estimate High H Platelet Morphology Normal RBC Morphology Dimorphic RBCs Present H Pemberton Cells 1+ H Sodium Potassium Chloride Carbon Dioxide Anion Gap BUN Creatinine Estimated GFR Random Glucose Calcium Prot Corrected Calcium Magnesium Total Bilirubin AST ALT Alkaline Phosphatase Total Protein Albumin Urine Color Straw Urine Clarity Clear Urine pH 5.0 Ur Specific Coila 1.006 Urine Protein Negative Urine Glucose (UA) Negative Urine Ketones Negative Urine Occult Blood Small H Urine Nitrate Negative Urine Bilirubin Negative Urine Urobilinogen Less than 2 Ur Leukocyte Esterase Trace H Urine RBC Less than 1 Urine WBC 2 Ur Squamous Epith Cells 1 Urine Bacteria Rare H Urine Mucus Few H Micro UA Comment Culture not ind Ur Microscopic Review Not Reportable Urine Culture Comments Culture not ind Blood Type B Positive Antibody Screen Negative MTS Gel Crossmatch See Detail 08/14/18 08/14/18 08/15/18 03:39 09:40 04:20 WBC RBC Hgb Hct MCV MCH MCHC RDW Plt Count MPV Prelim Diff (Auto) Neut % (Auto) Lymph % (Auto) Platte % (Auto) Eos % (Auto) Baso % (Auto) Neut # (Auto) Lymph # (Auto) [place]atte # (Auto) Eos # (Auto) Baso # (Auto) WBC Differential Diff Scan Seg Neuts % (Manual) Band Neuts % (Manual) Lymphocytes % (Manual) Metamyelocytes % (Man) Myelocytes % (Man) Abs Neuts (Manual) Differential Comment Hypersegmented Neuts Platelet Estimate Platelet Morphology RBC Morphology Dimorphic RBCs Rex Cells Sodium 135 L 137 Potassium 5.4 H D 4.0 D 4.9 D Chloride 102 107 Carbon Dioxide 18.3 L 17.8 L Anion Gap 15 12 BUN 55 H 60 H Creatinine 3.39 H 3.30 H Estimated GFR 16 L 16 L Random Glucose 163 H 165 H Calcium 6.9 L* 6.8 L* Prot Corrected Calcium 7.1 L* 7.4 L* Magnesium 1.7 Total Bilirubin 0.2 AST 31 ALT 27 Alkaline Phosphatase 171 H Total Protein 6.7 5.9 L D Albumin 1.7 L Urine Color Urine Clarity Urine pH Ur Specific Coila Urine Protein Urine Glucose (UA) Urine Ketones Urine Occult Blood Urine Nitrate Urine Bilirubin Urine Urobilinogen Ur Leukocyte Esterase Urine RBC Urine WBC Ur Squamous Epith Cells Urine Bacteria Urine Mucus Micro UA Comment Ur Microscopic Review Urine Culture Comments Blood Type Antibody Screen MTS Gel Crossmatch 08/15/18 08/16/18 08/16/18 07:48 06:27 06:27 WBC 18.8 H 18.5 H RBC 3.99 L 4.10 Hgb 11.2 L 11.6 Hct 33.7 L 34.8 L MCV 84.6 84.9 MCH 28.0 28.2 MCHC 33.1 33.2 RDW 17.2 17.2 Plt Count 448 451 H MPV 7.3 7.5 Prelim Diff (Auto) Slide review pending Slide review pending Neut % (Auto) 96.4 H 96.0 H Lymph % (Auto) 2.5 L 2.8 L [place] % (Auto) 0.8 1.0 Eos % (Auto) 0.1 0.0 Baso % (Auto) 0.2 0.2 Neut # (Auto) 18.1 H 17.8 H Lymph # (Auto) 0.5 L 0.5 L [place] # (Auto) 0.2 0.2 Eos # (Auto) 0.0 0.0 Baso # (Auto) 0.0 0.0 WBC Differential . Manual diff final Diff Scan Auto diff confirmed Seg Neuts % (Manual) 88 H Band Neuts % (Manual) 2 Lymphocytes % (Manual) 5 L Metamyelocytes % (Man) Myelocytes % (Man) 5 H Abs Neuts (Manual) 17.6 H Differential Comment . . Hypersegmented Neuts 1+ H Platelet Estimate High H Platelet Morphology Normal RBC Morphology Normal Dimorphic RBCs Pemberton Cells Sodium 136 Potassium 3.7 D Chloride 105 Carbon Dioxide 17.8 L Anion Gap 13 BUN 63 H Creatinine 3.24 H Estimated GFR 17 L Random Glucose 197 H Calcium 7.4 L* Prot Corrected Calcium 7.8 L Magnesium Total Bilirubin 0.3 AST 15 ALT 33 Alkaline Phosphatase 171 H Total Protein 6.4 Albumin 2.0 L Urine Color Urine Clarity Urine pH Ur Specific Coila Urine Protein Urine Glucose (UA) Urine Ketones Urine Occult Blood Urine Nitrate Urine Bilirubin Urine Urobilinogen Ur Leukocyte Esterase Urine RBC Urine WBC Ur Squamous Epith Cells Urine Bacteria Urine Mucus Micro UA Comment Ur Microscopic Review Urine Culture Comments Blood Type Antibody Screen MTS Gel Crossmatch Result Diagrams: 08/16/18 06:27 08/16/18 06:27 Imaging: Abdomen/Pelvis CT 07/28/18 01:18 CONCLUSION: 1. Postoperative changes of biliary stent with biliary drainage catheter passing through the stent. Gastrojejunostomy tube again noted. 2. Mild stranding of fat around the pancreas could indicate a mild pancreatitis. 3. 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 GI Procedure 08/02/18 00:00 CONCLUSION: A biliary stent has been placed. It is in good position. There is good filling of the hepatic ducts. Tube Check 08/08/18 00:00 CONCLUSION: 1. Uncomplicated tube injection as above. The tube was not exchanged. Procedures: 08/02/18-ERCP with stent exchange 08/08/18-GJ tube check by interventional radiology 08/12/18-GJ tube check by interventional radiology Assessment and Plan - Disease Oriented Problem List (1) Leukocytosis (2) Hypernatremia (3) Hypokalemia (4) HTN (hypertension) (5) CKD (chronic kidney disease) (6) GERD (gastroesophageal reflux disease) (7) Anemia - Symptom Scale (2) Nausea Comment: Patient complaining of nausea. (3) Debility Comment: Progressive. Pertinent Non-Medical Issues: Psychosocial: Patient is retired. She had 2 children and one of her children is . She lives with her daughter. Spiritual: Patient is Gnosticism Legal:Never completed advance directives. Ethical issues impacting care: None identified at this time Important Contacts: Daughter -Caitlyn Perez [phone] extension [phone] Granddaughter -Anita Albert [phone] Prognosis: Mrs Larsen is an 82-year-old female with a history significant for recurrent idiopathic pancreatitis, GERD, hypertension, anemia, chronic kidney disease and has a gastrojejunal tube. Patient has been hospitalized numerous times for issues regarding pain control related to recurrent pancreatitis. The last admission was from 06/291813/10/18 due to acute kidney injury, idiopathic pancreatitis and exchange of GJ tube on 07/25/18. Patient presented to the ER on 07/28/18 with complaints of worsening abdominal pain associated with nausea. Clinical course complicated with abdominal pain, persistent leukocytosis, elevated lipase and imaging consistent with acute pancreatitis. Given ongoing multiple comorbidities and multiple hospitalizations, patient remains at high risk for further complications, deterioration and decline. Code Status: Full Code Plan: PLAN: Legal decision maker: Patient is currently oriented to self, place and situation. Appears to be able to participate in medical decision making. According to [place] statute, in the event that patient is incapacitated, her only daughter Caitlyn Perez will serve as her healthcare proxy. Goals: Goals remain aggressive. Patient still refusing to go to rehabilitation facility after medical discharge. She wants to be discharged home with home health PT. She wants to be resuscitated in an event of a cardiac arrest and intubated and place on a mechanical ventilator in an event of respiratory distress. CODE STATUS: Full code SYMPTOMS: * Pain: Patient has history of idiopathic pancreatitis. Came in complaining with abdominal pain which appears to be chronic. Lipase is elevated. Patient is currently on hydrocodone/acetaminophen 5/325 every 4hrs prn. Patient required x7 prn doses of Hydrocodone/acetaminophen 5/325 in the past 24hrs. of pain medication. Adequate at this time * Nausea: Patient has history of pancreatitis. She came in complaining with nausea. Patient is mostly fed via GJ tube. ERCP on 08/02 with stent replacement. Zofran 4mg prn IVP q 6 hrs for nausea available. Currently complaining of nausea. She has required x5 doses of Zofran 4mg in the past 24 hrs. Continue to assess for nausea. * Debility: Patient has had multiple hospitalizations with complaints of abdominal pain. Patient ambulates with a walker at home. PT consulted, recommending PT at rehab. Patient is refusing to go to a detention facility for rehab, she would want to be discharged back home and his daughter who is here DPOA is supportive of her decision. Palliative care will continue to follow the patient during hospital course as condition evolves, to assist patient/decision-maker with understanding of their medical conditions, weighing benefits/burdens of treatment options, for clarification of goals of treatment. Additionally will assist with any symptoms of palliative concern Attestation Attestation: To help prompt me to consider important information that might be impacting today's encounter and assessment, information from prior notes written by myself or my colleagues may have been "brought forward" into today's note. My signature on this note, however, is an attestation that I personally performed the exam, history, and/or decision-making noted today, and, unless otherwise indicated, the interactions with patient, family, and staff as well as the review of records all occurred today. I also attest that the listed assessment and stated plan reflect my best clinical judgment today based on the combination of historical information, prior notes, and today's exam/ interactions. When time spent is documented, it refers only to time spent today by the signer, or if indicated, combined time spent today by collaborating physician/nurse practitioner.
[2018-08-16] MEDS: Fluconazole 100 MG Tablet PO SCH (16:10)
[2018-08-17 06:16] LABS: Hematocrit 35.6 % (35.0-46.0); Hemoglobin 11.5 gm/dL (11.6-15.3); Mean Corpuscular HGB Conc 32.3 % (32.0-36.0); Mean Corpuscular Hemoglobin 27.3 pg (27.0-34.0); Mean Corpuscular Volume 84.7 fL (80.0-100.0); Mean Platelet Volume 7.3 fL (7.0-11.0); Platelet Count 350 th/mm3 (150-450); Red Blood Count 4.21 mil/mm3 (4.00-5.30); Red Cell Distribution Width 17.4 % (11.6-17.2); White Blood Count 29.2 th/mm3 (4.0-11.0)
[2018-08-17 06:36] LABS: Albumin 1.9 g/dL (3.4-5.0); Calcium 7.1 mg/dL (8.5-10.1); Carbon Dioxide 17.7 meq/L (21.0-32.0); Potassium 4.5 meq/L (3.5-5.1); Total Protein 6.1 g/dL (6.4-8.2)
[2018-08-17 07:41] LABS: Lymphocytes 1 % (9-44)
[2018-08-17 07:42] LABS: Platelet Estimate Normal (Normal); Platelet Morphology Normal (Normal); RBC Morphology Normal (Normal); Toxic Vacuolation Present
--- NOTE | 2018-08-17 08:15 | P.PNONC ---
Subjective Interval history: Patient is feeling better. Rated her abdominal pain as 7 out of 10. She is able to tolerate small amount of food. She has loose stool. She has no chest pain or palpitation. She has no shortness of breath or cough. She remains afebrile. Objective Vital Signs/Intake & Output: Vital Signs 08/16/18 12:00 08/16/18 12:43 08/16/18 16:00 Temperature 97.2 F L 97.6 F Pulse Rate 91 H 99 H Respiratory Rate 17 17 17 Blood Pressure 168/86 H 171/86 H Pulse Oximetry 97 100 08/16/18 20:00 08/17/18 00:00 08/17/18 07:36 Temperature 78.8 F L 97.7 F 97.6 F Pulse Rate 87 88 88 Respiratory Rate 18 18 18 Blood Pressure 166/85 H 162/85 H 184/97 H Pulse Oximetry 96 96 Intake & Output 08/16/18 08/17/18 08/17/18 18:59 06:59 18:59 Intake Total 0 / 2050 1000 / 1000 Output Total 1150 / 1150 1600 / 1600 Balance 900 / 900 -600 / -600 Weight 65.6 kg Intake: IV 1000 / 1000 1000 / 1000 NS Inj 1,000 ML @ 75 mls/hr IV. 1000 / 1000 1000 / 1000 CONT .[id number] HITESH Rx#:[id number] Oral 740 / 740 Tube Feeding 310 / 310 Output: Urine 1150 / 1150 1600 / 1600 Other: Date of Last Bowel Movement 08/15/18 # Bowel Movements 4 # Incontinent Bowel Movements 1 Result Diagrams: 08/17/18 05:58 08/17/18 05:58 Laboratory Results: Laboratory Results - last 24 hr 08/16/18 08/16/18 08/17/18 06:27 06:27 05:58 WBC 18.5 H 29.2 H D RBC 4.10 4.21 Hgb 11.6 11.5 L Hct 34.8 L 35.6 MCV 84.9 84.7 MCH 28.2 27.3 MCHC 33.2 32.3 RDW 17.2 17.4 H Plt Count 451 H 350 MPV 7.5 7.3 Prelim Diff (Auto) Slide review pending Manual diff required Neut % (Auto) 96.0 H Lymph % (Auto) 2.8 L [place] % (Auto) 1.0 Eos % (Auto) 0.0 Baso % (Auto) 0.2 Neut # (Auto) 17.8 H Lymph # (Auto) 0.5 L [place] # (Auto) 0.2 Eos # (Auto) 0.0 Baso # (Auto) 0.0 WBC Differential Manual diff final Manual diff final Seg Neuts % (Manual) 88 H 92 H Band Neuts % (Manual) 2 7 H Lymphocytes % (Manual) 5 L 1 L Myelocytes % (Man) 5 H Abs Neuts (Manual) 17.6 H 28.9 H Differential Comment . . Toxic Vacuolation Present H Platelet Estimate High H Normal Platelet Morphology Normal Normal RBC Morphology Normal Normal Sodium 136 Potassium 3.7 D Chloride 105 Carbon Dioxide 17.8 L Anion Gap 13 BUN 63 H Creatinine 3.24 H Estimated GFR 17 L Random Glucose 197 H Calcium 7.4 L* Prot Corrected Calcium 7.8 L Total Bilirubin 0.3 AST 15 ALT 33 Alkaline Phosphatase 171 H Total Protein 6.4 Albumin 2.0 L 08/17/18 05:58 WBC RBC Hgb Hct MCV MCH MCHC RDW Plt Count MPV Prelim Diff (Auto) Neut % (Auto) Lymph % (Auto) [place] % (Auto) Eos % (Auto) Baso % (Auto) Neut # (Auto) Lymph # (Auto) [place] # (Auto) Eos # (Auto) Baso # (Auto) WBC Differential Seg Neuts % (Manual) Band Neuts % (Manual) Lymphocytes % (Manual) Myelocytes % (Man) Abs Neuts (Manual) Differential Comment Toxic Vacuolation Platelet Estimate Platelet Morphology RBC Morphology Sodium 136 Potassium 4.5 D Chloride 105 Carbon Dioxide 17.7 L Anion Gap 13 BUN 64 H Creatinine 3.21 H Estimated GFR 17 L Random Glucose 206 H Calcium 7.1 L* Prot Corrected Calcium 7.6 L Total Bilirubin 0.3 AST 21 ALT 34 Alkaline Phosphatase 156 H Total Protein 6.1 L Albumin 1.9 L Medications: Active Medications Generic Name Dose Route Start Last Admin Trade Name Freq PRN Reason Stop Dose Admin Acetaminophen 650 mg 07/30/18 21:53 08/09/18 20:37 Tylenol PO 650 mg Q6H PRN Administration TEMPERATURE > 101 F Hydrocodone Bitart/Acetaminophen 1 tab 08/02/18 07:00 08/17/18 03:00 [place] 5/325 PO 1 tab Q4H PRN Administration FOR PAIN SCALE 2 TO 10 Amlodipine Besylate 5 mg 07/28/18 09:00 08/16/18 08:03 Norvasc PO 5 mg DAILY HITESH Administration Lipase/Protease/Amylase 1 cap 07/28/18 09:30 08/16/18 17:58 Mando Kapoor PO 1 cap TIDPC HITESH Administration Calcium Carbonate 500 mg 08/14/18 21:00 08/16/18 21:06 Tums Chew CHEW 500 mg BID HITESH Administration Duloxetine HCl 20 mg 07/28/18 09:00 08/16/18 08:03 Cymbalta PO 20 mg DAILY HITESH Administration Fluconazole 100 mg 08/13/18 16:00 08/16/18 16:10 Diflucan PO 100 mg Q24H HITESH Administration Sodium Chloride 1,000 mls @ 75 mls/hr 08/03/18 15:02 08/17/18 02:58 Ns Inj IV.CONT Infused .[id number] HITESH Infusion Methylprednisolone Sodium Succinate 60 mg 08/15/18 09:00 08/16/18 21:07 Solumedrol Inj IV.PUSH 60 mg Q12H HITESH Administration Metoprolol Tartrate 25 mg 07/28/18 09:00 08/16/18 21:06 Lopressor PO 25 mg BID HITESH Administration Multi-Ingredient Ointment 1 applic 08/02/18 14:32 08/09/18 14:24 Blistex Lip [place] TOPICAL 1 applic Q1H PRN Administration DRY LIPS Nystatin 5 ml 08/13/18 18:00 08/16/18 21:06 Mycostatin Liq SWISH-SWAL 5 ml QID HITESH Administration Ondansetron HCl 4 mg 07/31/18 22:00 08/16/18 14:24 Zofran Inj IV.PUSH 4 mg Q4HR PRN Administration NAUSEA OR VOMITING Pantoprazole Sodium 40 mg 07/28/18 09:00 08/16/18 21:06 Protonix PO 40 mg BID HITESH Administration Sodium Chloride 2 ml 08/10/18 21:00 08/16/18 21:06 Ns Flush IV.FLUSH 2 ml BID HITESH Administration Sterile Water 200 ml 07/28/18 12:00 08/17/18 05:12 Free Water G-TUBE 200 ml Q6HR HITESH Administration Sucralfate 1 gm 07/28/18 09:00 08/16/18 17:28 Carafate PO 1 gm TID HITESH Administration Ursodiol 300 mg 07/28/18 09:00 08/16/18 21:06 Actigall PO 300 mg BID HITESH Administration Objective Remarks: GENERAL: Well-nourished, well-developed patient. She is more alert. SKIN: Warm and dry. HEAD: Normocephalic. EYES: No scleral icterus. No injection or drainage. NECK: Supple, trachea midline. No JVD or lymphadenopathy. LYMPHATIC: No adenopathy. CARDIOVASCULAR: Regular rate and rhythm without murmurs. RESPIRATORY: Breath sounds equal bilaterally. No accessory muscle use. GASTROINTESTINAL: Abdomen soft, tender in the mid abdomen, nondistended, positive bowel sounds. EXTREMITIES: No cyanosis, or edema. MUSCULOSKELETAL: Adequate muscle tone. NEUROLOGICAL: No obvious focal deficit. Awake, alert, and oriented x3. PSYCHIATRIC: Appropriate mood and affect; insight and judgment normal. Assessment/Plan (1) Idiopathic pancreatitis Code(s): K85.00 - Idiopathic acute pancreatitis without necrosis or infection Status: Acute (2) Anemia Code(s): D64.9 - Anemia, unspecified Status: Chronic (3) Leukocytosis Code(s): D72.829 - Elevated white blood cell count, unspecified Status: Acute - Plan 1. Chronic leukocytosis, most consistent with a leukemoid reaction. She has had fluctuating white blood cell counts for several years that usually coincide with a hospital admissions and exacerbation of pancreatitis. In February 2017, she had flow cytometry which did not show any abnormal immunophenotype and no evidence of leukemia. JAK2 mutation and FISH study for BCR-ABL at that time was also negative. During this hospital stay, her white blood cell count trended up from 21,000 to 35,000. There was also evidence of bandemia. I think this is most consistent with a reactive process. August 11, 2018. Sed rate and C-reactive protein both significantly elevated Consistent with inflammatory process. This is likely the reason for leukocytosis. I doubt that she has underlying bone marrow disorder. August 12, 2018. WBC trended up to 40.6. This may be due to the steroid which was started yesterday. August 15, 2018. Patient's abdominal pain slightly better since started on steroid. WBC has trended down to 26.7. She remains afebrile. Infectious disease is following. August 16, 2018. White blood cell count trended down to 18.8. She remains afebrile. It appears that she is responding to steroids with decreased inflammation. August 16, 2018. White blood cell count trended back up to 29.2. This may be demargination from steroid. She remains afebrile. 2. Chronic anemia, which is multifactorial due to chronic kidney disease as well as chronic inflammatory disease. Her hemoglobin trended down from 9.9 to 8.4 during this hospital stay. We will check iron studies and vitamin studies. Can consider giving her Epogen if her hemoglobin continues to trend down. She has no evidence of bleeding at this time. August 11, 2018. Iron study and vitamin study did not show any deficiency. The anemia is secondary to chronic kidney disease and chronic inflammatory disease. Her hemoglobin is stable. August 04, 2018. Hemoglobin stable at 7.7. No evidence of bleeding. August 15, 2018. She received 2 units of PRBC transfusion and hemoglobin up to 11.1. August 16, 2018. Hemoglobin remains stable at 11.2 since transfusion. 3. Fluctuating thrombocytosis. She has mild thrombocytosis intermittently, again consistent with a reactive process. August 11, 2018. Thrombocytosis is secondary to reactive process. August 12, 2018. Platelet count trended back down to 423,000. August 17, 2018. Platelet count has trended back down to normal. 4. Recurrent pancreatitis. This has been going on for more than 5 years. She recently had an endoscopic retrograde cholangiopancreatography with biliary stent exchange. She was started on Solu-Medrol and her pain seems to be better. RECOMMENDATIONS: 1. Continue to monitor CBC. 2. I anticipate her white blood cell count will trend down when her pancreatitis subsides and when she is off steroid. (1) Idiopathic pancreatitis Qualifiers: (2) Anemia Qualifiers: Anemia type: unspecified type Qualified Code(s): D64.9 - Anemia, unspecified
[2018-08-17] MEDS: MethylPREDNISolone Sod Succinate Inj 125 MG/2 ML Vial IV.PUSH SCH ×2 (08:44→21:30)
[2018-08-17] MEDS: Lipase/Protease/Amylase 12/38/60 DR Capsule PO SCH ×3 (08:45→18:40)
[2018-08-17] MEDS: Sucralfate 1 GM Tablet PO SCH ×3 (08:47→18:40)
[2018-08-17] MEDS: amLODIPine 5 MG Tablet PO SCH (08:47)
[2018-08-17] MEDS: Metoprolol Tartrate 25 MG Tablet PO SCH ×2 (08:48→21:30)
[2018-08-17] MEDS: Sodium Chloride 0.9% 2 ML Flush BID IV.FLUSH SCH ×2 (08:55→21:31)
--- NOTE | 2018-08-17 09:11 | P.PNIM ---
Subjective Interval history: Pt reports that her abd pain is fairly well controlled currently She is tolerating some full liquids Afebrile Pts TF are at a rate of 25mL/hr currently. She is not ambulating much or working much with PT She refuses SNF. Physical Exam Vital signs: Vital Signs 08/16/18 12:00 08/16/18 12:43 08/16/18 16:00 Temperature 97.2 F L 97.6 F Pulse Rate 91 H 99 H Respiratory Rate 17 17 17 Blood Pressure 168/86 H 171/86 H Pulse Oximetry 97 100 08/16/18 20:00 08/17/18 00:00 08/17/18 07:36 Temperature 78.8 F L 97.7 F 97.6 F Pulse Rate 87 88 88 Respiratory Rate 18 18 18 Blood Pressure 166/85 H 162/85 H 184/97 H Pulse Oximetry 96 96 Intake & Output 08/16/18 08/17/18 08/17/18 18:59 06:59 18:59 Intake Total 2049 / 0 1000 / 1000 Output Total 1150 / 1150 1600 / 1600 Balance 900 / 900 -600 / -600 Weight 65.6 kg Intake: IV 1000 / 1000 1000 / 1000 NS Inj 1,000 ML @ 75 mls/hr IV. 1000 / 1000 1000 / 1000 CONT .[id number] HITESH Rx#:[id number] Oral 740 / 740 Tube Feeding 310 / 310 Output: Urine 1150 / 1150 1600 / 1600 Other: Date of Last Bowel Movement 08/15/18 # Bowel Movements 4 # Incontinent Bowel Movements 1 Narrative: GENERAL: This is a 82 year old female, well-developed patient, in no apparent distress. CARDIO: Regular RESP: CTA bilaterally. ABD: +BS, soft, nontender, nondistended. GJ tube in place, skin irritation under the bumper, gauze replaced around/under the bumper EXT: No edema. Results - Labs CBC & Chem 7: 08/17/18 05:58 08/17/18 05:58 Laboratory Results - last 24 hr 08/16/18 08/16/18 08/17/18 06:27 06:27 05:58 WBC 29.2 H D RBC 4.21 Hgb 11.5 L Hct 35.6 MCV 84.7 MCH 27.3 MCHC 32.3 RDW 17.4 H Plt Count 350 MPV 7.3 Prelim Diff (Auto) Manual diff required WBC Differential Manual diff final Manual diff final Seg Neuts % (Manual) 88 H 92 H Band Neuts % (Manual) 2 7 H Lymphocytes % (Manual) 5 L 1 L Myelocytes % (Man) 5 H Abs Neuts (Manual) 17.6 H 28.9 H Differential Comment . Toxic Vacuolation Present H Platelet Estimate High H Normal Platelet Morphology Normal Normal RBC Morphology Normal Normal Sodium 136 Potassium 3.7 D Chloride 105 Carbon Dioxide 17.8 L Anion Gap 13 BUN 63 H Creatinine 3.24 H Estimated GFR 17 L Random Glucose 197 H Calcium 7.4 L* Prot Corrected Calcium 7.8 L Total Bilirubin 0.3 AST 15 ALT 33 Alkaline Phosphatase 171 H Total Protein 6.4 Albumin 2.0 L 08/17/18 05:58 WBC RBC Hgb Hct MCV MCH MCHC RDW Plt Count MPV Prelim Diff (Auto) WBC Differential Seg Neuts % (Manual) Band Neuts % (Manual) Lymphocytes % (Manual) Myelocytes % (Man) Abs Neuts (Manual) Differential Comment Toxic Vacuolation Platelet Estimate Platelet Morphology RBC Morphology Sodium 136 Potassium 4.5 D Chloride 105 Carbon Dioxide 17.7 L Anion Gap 13 BUN 64 H Creatinine 3.21 H Estimated GFR 17 L Random Glucose 206 H Calcium 7.1 L* Prot Corrected Calcium 7.6 L Total Bilirubin 0.3 AST 21 ALT 34 Alkaline Phosphatase 156 H Total Protein 6.1 L Albumin 1.9 L Assessment and Plan - Assessment (1) Idiopathic pancreatitis Code(s): K85.00 - Idiopathic acute pancreatitis without necrosis or infection Status: Acute Plan: Idiopathic pancreatitis - Patient is an 82 y/o AAF with recurrent idiopathic pancreatitis. She has been hospitalized numerous times for issues with pain control related to recurrent pancreatitis. Her last admission was from 07/13/18 to 07/26/18 due to WAY[place], idiopathic pancreatitis and had her GJ tube exchanged 07/25/18. - Patient again presented to the ER last night due to worsening abd pain associated with nausea but no vomiting. Patient reports that she always had mild epigastric pain, but yesterday evening it again became more severe and is associated with nausea but not vomiting. Denies fever or chills, chest pain, cough, difficulty flushing J tube, or diarrhea. - On admission WBC 21.6, BUN 44, creatinine 2.60 and lipase 2673. - CT abd/pelvis was done and revealed: 1. Postoperative changes of biliary stent with biliary drainage catheter passing through the stent. Gastrojejunostomy tube again noted. 2. Mild stranding of fat around the pancreas could indicate a mild pancreatitis. 3. 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 - PO pain medication as needed - Appreciate input from GI. - Pt underwent repeat ERCP with stent exchange, 08/02/18 (ERCP and stent exchange cancelled on 08/01 as patient's daughter needed to talk with Dr. Ortega prior to signing consent.). According to the procedure report, the common bile duct had multiple filling defects which were able to be cleaned out and once cleaned he was able to clearly see the ingrowth into the old metal stent and so a 10 [place] 40 mm stent was placed within the first metal stent and it protruded about a centimeter into the duodenum with good drainage noted. The intrahepatics appeared to be unremarkable - Dietary recommended TF with Suplena with goal rate 40mls/hr, orders placed for this for discharge as pt was previously on Jevity but complained of diarrhea. - Pts lipase started to trend slightly up on 08/07 and 08/08 - WBC 21.6 (07/28), 24.9 (07/29), 22.6 (07/30), 24 (07/31), 22.1 (08/02), 31.4 (08/03) , 29.2 (08/04), 23.5 (08/05), 34.9 (08/08), 33.0 (08/09), 40.6 (08/12) - lipase 2673 (07/28), 2471 (07/29), 758 (07/30), 215 (08/10), 155 (08/02), 730 (08/03 ), 509 (08/04), 423 (08/05), 708 (08/07), 768 (08/08), 596 (08/09), 459 (08/10/18), 271 (08/12) - On 08/07 the pts nurse reported that when flushing the J-tube that the water was coming up through the pts insertion site in the skin. - GJ tube reevaluated by Dr. Lala (08/08/18) G and J ports both patent. No findings of leakage from tube or through dermatotomy. Patient does appear to have some stasis of material in gastric lumen probably secondary to gastroparesis. Placed G-port to gravity drainage. - J-tube is reassessed by IR (08/13) and functional after flushing with warm water - Pts TF are not up to goal rate (40 mL/hr), increase slowly and assess for residuals or drainage from the insertion site. - continue clears - [place] prn - appreciate input from Palliative Medicine - Appreciate input from Dr. Stewart. - IV Solu-Medrol 60 mg IV Q6H (08/11 - 08/15) -> start to taper Solu-Medrol decreased to 60 mg IV Q12H (08/15) - Pt's daughter Caitlyn Perez was updated by phone by Dr. Eddy () - ID consulted per Ms. Perez's request. - Per ID IMPRESSION: "Leukocytosis. This is probably reactive. White blood cell count is improving. The patient received Solu-Medrol, which may lead to even further increase in the white count, but her white count was elevated prior to the Solu-Medrol. The patient has a diagnosis of pancreatitis, which could also be contributing to the white blood cell count elevation as well." - SCDs for DVT prophylaxis - supportive care Oral Thrush - Continue nystatin swish and swallow for the thrush. - Give a 10-day course of Diflucan po. Chronic kidney failure - Pt with baseline stage 3 CKD, pt follows with Dr. Melara - avoid nephrotoxic agents - Per RN several OTC Advil found hidden in a tissue box at patient's bedside. Discussed with patient and nurse that she should not be taking Advil given her renal function and should not be taking outside medications - Cr 3.37 (08/10), 3/48 (08/12), 3.46 (08/13), 3.39 (08/14), 3.30 (08/15), 3.23 (08/16 ), 3.21 (08/17) - continue IVFs - repeat BMP in AM Hypernatremia - resolved - sodium 151 (08/09), 147 (08/10), 145 (08/11), 136 (08/12), 137 (08/15), 136 (08/16) , 126 (08/17) - patient had not received free water flush due to concern regarding GJ tube Leukocytosis, persistent - [facility] Medical team has cared for Ms. Larsen for several years and many different admissions. - Pt tends to have marked persistent leukocytosis during her admissions which correlated to flares of her idiopathic pancreatitis - paradoxically, pt's leukocytosis has improved in the past, as well as her clinical condition with steroids - possibly d/t to a reactive process - Pt has had NO fever above 99.9F this entire admission - There is NO indication of infection. Pt has NO c/o cough, SOB, or dysuria. There is NO diarrhea. - appreciate input from Hematology, Dr. Perea. Leukocytosis is likely d/t Pancreatitis. - Pt/family request consultation from Infectious Disease, concerned that leukocytosis is d/t infection. - WBC 40.6 (08/12), 38.1 (08/13), 26.7 (08/14), 18.1 (08/15), 18.5 (08/16), 29.2 (08/17) - I appreciate the input from ID, Dr. Chahal. - PO diflucan and nystatin s/s HTN (hypertension) - Cont. home meds - Monitor GERD (gastroesophageal reflux disease) - PPI Hypomagnesemia - repleted Hypokalemia - resoved anemia - d/t chronic disease, stable. - this diagnosis has been explored during prior hospitalizations and d/w Hematology - anemia felt to be d/t underlying disease processes - Hg 7.6 (08/13), 11.1 (08/14), 11.2 (08/15), 11.6 (08/16), 11.5 (08/17) - Pt was transfused 2 units PRBCs on 08/13 (1) Idiopathic pancreatitis Qualifiers:
[2018-08-17] MEDS: Sod Chloride 0.9% Inj 1,000 ML IV.CONT SCH ×3 (09:34→21:31)
[2018-08-17] MEDS: Nystatin Liq 500,000 UNIT/5 ML UDC SWISH-SWAL SCH ×4 (09:35→21:31)
--- NOTE | 2018-08-17 11:11 | P.PNPAL ---
Reason for Visit Reason for visit: a. To assist with evaluation and management of symptoms including: Pain, nausea , debility b. To assist medical decision maker(s) with: better understanding of current medical conditions; weighing benefits/burdens of medical treatment options; making medical treatment decisions. Subjective Subjective/Interval History: Follow-up medically necessary for symptom management. Patient is intubated, awake watching TV. Patient states that today she feels much better and abdominal pain is controlled. Required x 5 prn doses of hydrocodone 5 mg in the past 24 hours. Patient has 2 bowls of soup at her bedside table that she wants to try and eat. She denies nausea at this time. Nausea appendectomy is adequately managed with Zofran. Tube feeding infusing via J tube. Briefly discussed how patient will do at home after discharge. Patient states that her granddaughter works all day but she will have a home health care nurse come in check on her. Expressed concern that she may need more help than she is anticipating. Patient still wants to be discharged home due to bad experience she has had in the past in a rehabilitation facility. Hematology oncology following. Family/Friend Interactions: No family at bedside Advance Directives Health Care Surrogate: Completed, but not made available Durable Power of Talent Associate: Completed, but not made available Health Care Surrogate Name and Number: HCP: Raj Perez Objective Vital Signs: Vital Signs 08/16/18 12:00 08/16/18 12:43 08/16/18 16:00 Temperature 97.2 F L 97.6 F Pulse Rate 91 H 99 H Respiratory Rate 17 17 17 Blood Pressure 168/86 H 171/86 H Pulse Oximetry 97 100 08/16/18 20:00 08/17/18 00:00 08/17/18 07:36 Temperature 78.8 F L 97.7 F 97.6 F Pulse Rate 87 88 88 Respiratory Rate 18 18 18 Blood Pressure 166/85 H 162/85 H 184/97 H Pulse Oximetry 96 96 08/17/18 10:37 Temperature Pulse Rate Respiratory Rate 20 Blood Pressure Pulse Oximetry Intake & Output 08/16/18 08/17/18 08/17/18 18:59 06:59 18:59 Intake Total 2050 / 2050 1000 / 1000 Output Total 1150 / 1150 1600 / 1600 Balance 900 / 900 -600 / -600 Weight 65.6 kg Intake: IV 1000 / 1000 1000 / 1000 NS Inj 1,000 ML @ 75 mls/hr IV. 1000 / 1000 1000 / 1000 CONT .[id number] [facility] Rx#:[id number] Oral 740 / 740 Tube Feeding 310 / 310 Output: Urine 1150 / 1150 1600 / 1600 Other: Date of Last Bowel Movement 08/15/18 # Bowel Movements 4 # Incontinent Bowel Movements 1 Physical Exam: CONSTITUTIONAL/GENERAL: This is a chronically ill looking patient, complaining of abdominal pain and nausea. TUBES/LINES/DRAINS: PIV, GJ tube SKIN: No jaundice, rashes, or lesions. Ecchymoses on upper extremities. No wounds seen anteriorly. Skin temperature appropriate. Not diaphoretic. EYES: PERRLA. No injection or drainage. Fundi not examined. ENT: Hearing grossly normal. No nasal bleeding or drainage. Moist oral mucosa CARDIOVASCULAR: Regular rate and rhythm without murmurs, gallops, or rubs. No JVD. Peripheral pulses symmetric. RESPIRATORY/CHEST: Symmetric, unlabored respirations. Clear to auscultation. Breath sounds equal bilaterally. No wheezes, rales, or rhonchi. GASTROINTESTINAL: Abdomen soft, non-tender, nondistended. No guarding. Hypoactive Bowel sounds. MUSCULOSKELETAL: Extremities without clubbing, cyanosis, or edema. No mottling or clubbing. NEUROLOGICAL: Alert, oriented to self, place and situation. Follows commands. Moves all extremities. PSYCHIATRIC: No obvious anxiety/depression. no apparent hallucinations or other psychotic thought process. Diagnostic Tests Laboratory: Laboratory Results - last 72 hr 08/15/18 08/15/18 08/16/18 04:20 07:48 06:27 WBC 18.8 H 18.5 H RBC 3.99 L 4.10 Hgb 11.2 L 11.6 Hct 33.7 L 34.8 L MCV 84.6 84.9 MCH 28.0 28.2 MCHC 33.1 33.2 RDW 17.2 17.2 Plt Count 448 451 H MPV 7.3 7.5 Prelim Diff (Auto) Slide review pending Slide review pending Neut % (Auto) 96.4 H 96.0 H Lymph % (Auto) 2.5 L 2.8 L Island % (Auto) 0.8 1.0 Eos % (Auto) 0.1 0.0 Baso % (Auto) 0.2 0.2 Neut # (Auto) 18.1 H 17.8 H Lymph # (Auto) 0.5 L 0.5 L Island # (Auto) 0.2 0.2 Eos # (Auto) 0.0 0.0 Baso # (Auto) 0.0 0.0 WBC Differential . Manual diff final Diff Scan Auto diff confirmed Seg Neuts % (Manual) 88 H Band Neuts % (Manual) 2 Lymphocytes % (Manual) 5 L Myelocytes % (Man) 5 H Abs Neuts (Manual) 17.6 H Differential Comment . . Hypersegmented Neuts 1+ H Toxic Vacuolation Platelet Estimate High H Platelet Morphology Normal RBC Morphology Normal Sodium 137 Potassium 4.9 D Chloride 107 Carbon Dioxide 17.8 L Anion Gap 12 BUN 60 H Creatinine 3.30 H Estimated GFR 16 L Random Glucose 165 H Calcium 6.8 L* Prot Corrected Calcium 7.4 L* Total Bilirubin 0.2 AST 31 ALT 27 Alkaline Phosphatase 171 H Total Protein 5.9 L D Albumin 1.7 L 08/16/18 08/17/18 08/17/18 06:27 05:58 05:58 WBC 29.2 H D RBC 4.21 Hgb 11.5 L Hct 35.6 MCV 84.7 MCH 27.3 MCHC 32.3 RDW 17.4 H Plt Count 350 MPV 7.3 Prelim Diff (Auto) Manual diff required Neut % (Auto) Lymph % (Auto) Island % (Auto) Eos % (Auto) Baso % (Auto) Neut # (Auto) Lymph # (Auto) Island # (Auto) Eos # (Auto) Baso # (Auto) WBC Differential Manual diff final Diff Scan Seg Neuts % (Manual) 92 H Band Neuts % (Manual) 7 H Lymphocytes % (Manual) 1 L Myelocytes % (Man) Abs Neuts (Manual) 28.9 H Differential Comment . Hypersegmented Neuts Toxic Vacuolation Present H Platelet Estimate Normal Platelet Morphology Normal RBC Morphology Normal Sodium 136 136 Potassium 3.7 D 4.5 D Chloride 105 105 Carbon Dioxide 17.8 L 17.7 L Anion Gap 13 13 BUN 63 H 64 H Creatinine 3.24 H 3.21 H Estimated GFR 17 L 17 L Random Glucose 197 H 206 H Calcium 7.4 L* 7.1 L* Prot Corrected Calcium 7.8 L 7.6 L Total Bilirubin 0.3 0.3 AST 15 21 ALT 33 34 Alkaline Phosphatase 171 H 156 H Total Protein 6.4 6.1 L Albumin 2.0 L 1.9 L Result Diagrams: 08/17/18 05:58 08/17/18 05:58 Imaging: Abdomen/Pelvis CT 07/28/18 01:18 CONCLUSION: 1. Postoperative changes of biliary stent with biliary drainage catheter passing through the stent. Gastrojejunostomy tube again noted. 2. Mild stranding of fat around the pancreas could indicate a mild pancreatitis. 3. 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 GI Procedure 08/02/18 00:00 CONCLUSION: A biliary stent has been placed. It is in good position. There is good filling of the hepatic ducts. Tube Check 08/08/18 00:00 CONCLUSION: 1. Uncomplicated tube injection as above. The tube was not exchanged. Procedures: 08/02/18-ERCP with stent exchange 08/08/18-GJ tube check by interventional radiology 08/12/18-GJ tube check by interventional radiology Assessment and Plan - Disease Oriented Problem List (1) Leukocytosis (2) Hypernatremia (3) Hypokalemia (4) HTN (hypertension) (5) CKD (chronic kidney disease) (6) GERD (gastroesophageal reflux disease) (7) Anemia - Symptom Scale (1) Pain 0-10 Scale: 7 (Complaining of abdominal pain, reports that today she feels much better-pain is adequately managed with hydrocodone) (2) Nausea 0-10 Scale: Unable to quantify Comment: Patient complaining of nausea. (3) Debility 0-10 Scale: Unable to quantify Comment: Progressive. Pertinent Non-Medical Issues: Psychosocial: Patient is retired. She had 2 children and one of her children is . She lives with her daughter. Spiritual: Patient is [place] Legal:Never completed advance directives. Ethical issues impacting care: None identified at this time Important Contacts: Daughter -Caitlyn Perez [phone] extension [phone] Granddaughter -Anita Albert [phone] Prognosis: Mrs Larsen is an 82-year-old female with a history significant for recurrent idiopathic pancreatitis, GERD, hypertension, anemia, chronic kidney disease and has a gastrojejunal tube. Patient has been hospitalized numerous times for issues regarding pain control related to recurrent pancreatitis. The last admission was from 06/291813/10/18 due to acute kidney injury, idiopathic pancreatitis and exchange of GJ tube on 07/25/18. Patient presented to the ER on 07/28/18 with complaints of worsening abdominal pain associated with nausea. Clinical course complicated with abdominal pain, persistent leukocytosis, elevated lipase and imaging consistent with acute pancreatitis. Given ongoing multiple comorbidities and multiple hospitalizations, patient remains at high risk for further complications, deterioration and decline. Code Status: Full Code Plan: PLAN: Legal decision maker: Patient is currently oriented to self, place and situation. Appears to be able to participate in medical decision making. According to [place] statute, in the event that patient is incapacitated, her only daughter Caitlyn Perez will serve as her healthcare proxy. Goals: Goals remain aggressive. Patient still refusing to go to rehabilitation facility after medical discharge. She wants to be discharged home with home health PT. She wants to be resuscitated in an event of a cardiac arrest and intubated and place on a mechanical ventilator in an event of respiratory distress. CODE STATUS: Full code SYMPTOMS: * Pain: Patient has history of idiopathic pancreatitis. Came in complaining with abdominal pain which appears to be chronic. Lipase is elevated. Patient is currently on hydrocodone/acetaminophen 5/325 every 4hrs prn. Patient required x5 prn doses of Hydrocodone/acetaminophen 5/325 in the past 24hrs. patient reports today that pain is adequately managed. * Nausea: Patient has history of pancreatitis. She came in complaining with nausea. Patient is mostly fed via GJ tube. ERCP on 08/02 with stent replacement. Zofran 4mg prn IVP q 6 hrs for nausea available. Patient is trying to eat some soup today, nausea under control. * Debility: Patient has had multiple hospitalizations with complaints of abdominal pain. Patient ambulates with a walker at home. PT consulted, recommending PT at rehab. Patient is refusing to go to a retirement facility for rehab, she would want to be discharged back home and his daughter who is here [facility] is supportive of her decision. Palliative care will continue to follow the patient during hospital course as condition evolves, to assist patient/decision-maker with understanding of their medical conditions, weighing benefits/burdens of treatment options, for clarification of goals of treatment. Additionally will assist with any symptoms of palliative concern Attestation Attestation: To help prompt me to consider important information that might be impacting today's encounter and assessment, information from prior notes written by myself or my colleagues may have been "brought forward" into today's note. My signature on this note, however, is an attestation that I personally performed the exam, history, and/or decision-making noted today, and, unless otherwise indicated, the interactions with patient, family, and staff as well as the review of records all occurred today. I also attest that the listed assessment and stated plan reflect my best clinical judgment today based on the combination of historical information, prior notes, and today's exam/ interactions. When time spent is documented, it refers only to time spent today by the signer, or if indicated, combined time spent today by collaborating physician/nurse practitioner.
[2018-08-17] MEDS: Fluconazole 100 MG Tablet PO SCH (16:01)
[2018-08-18] MEDS: Sod Chloride 0.9% Inj 1,000 ML IV.CONT SCH ×3 (03:02→16:33)
--- NOTE | 2018-08-18 08:48 | P.PNIM ---
Subjective Interval history: Pt reports some increased pain this morning and some slight nausea She is noted to have active drainage of liquids and what appears to be TF from the GJ tube insertion site Afebrile Physical Exam Vital signs: Vital Signs 08/17/18 10:37 08/17/18 11:31 08/17/18 12:00 Temperature 97.7 F 97.7 F Pulse Rate 87 89 Respiratory Rate 20 20 16 Blood Pressure 161/84 H 132/76 Pulse Oximetry 98 98 08/17/18 16:00 08/17/18 16:05 08/17/18 19:35 Temperature 97.5 F L 97.8 F Pulse Rate 94 H 98 H Respiratory Rate 17 18 Blood Pressure 175/92 H 157/84 H 172/84 H Pulse Oximetry 98 97 08/18/18 00:00 08/18/18 08:00 Temperature 97.7 F 97.7 F Pulse Rate 81 97 H Respiratory Rate 18 18 Blood Pressure 164/80 H 190/87 H Pulse Oximetry 99 98 Intake & Output 08/17/18 08/18/18 08/18/18 18:59 06:59 18:59 Intake Total 2145 / 2145 1700 / 1700 Output Total 1275 / 1275 Balance 870 / 870 1700 / 1700 Weight 67.1 kg Intake: IV 1000 / 1000 NS Inj 1,000 ML @ 75 mls/hr IV. 1000 / 1000 CONT .[id number] [facility] Rx#:[id number] Oral 880 / 880 700 / 700 Tube Feeding 640 / 640 Water Bolus Amount 400 / 400 Anesthesia Amount 225 / 225 Output: Urine 1050 / 1050 Emesis 150 / 150 Gastric Drainage 75 / 75 Left Upper Quadrant 75 / 75 Gastrojejunostomy Tube Other: Post Void Residual 1,000 # Voids 2 5 Date of Last Bowel Movement 08/17/18 08/17/18 # Bowel Movements 2 2 # Incontinent Bowel Movements 1 Narrative: GENERAL: This is a 82 year old female, well-developed patient, in no apparent distress. CARDIO: Regular RESP: CTA bilaterally. ABD: +BS, soft, nontender, nondistended. GJ tube in place, active drainage from the GJ tube insertion site this morning with what appears to be TF. Skin irritation under the bumper, gauze replaced around/under the bumper EXT: No edema. Results - Labs CBC & Chem 7: 08/18/18 10:22 08/18/18 10:22 Assessment and Plan - Assessment (1) Idiopathic pancreatitis Code(s): K85.00 - Idiopathic acute pancreatitis without necrosis or infection Status: Acute Plan: Idiopathic pancreatitis - Patient is an 82 y/o AAF with recurrent idiopathic pancreatitis. She has been hospitalized numerous times for issues with pain control related to recurrent pancreatitis. Her last admission was from 07/13/18 to 07/26/18 due to [place], idiopathic pancreatitis and had her GJ tube exchanged 07/25/18. - Patient again presented to the ER last night due to worsening abd pain associated with nausea but no vomiting. Patient reports that she always had mild epigastric pain, but yesterday evening it again became more severe and is associated with nausea but not vomiting. Denies fever or chills, chest pain, cough, difficulty flushing J tube, or diarrhea. - On admission WBC 21.6, BUN 44, creatinine 2.60 and lipase 2673. - CT abd/pelvis was done and revealed: 1. Postoperative changes of biliary stent with biliary drainage catheter passing through the stent. Gastrojejunostomy tube again noted. 2. Mild stranding of fat around the pancreas could indicate a mild pancreatitis. 3. 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 - PO pain medication as needed - Appreciate input from GI. - Pt underwent repeat ERCP with stent exchange, 08/02/18 (ERCP and stent exchange cancelled on 08/01 as patient's daughter needed to talk with Dr. Ortega prior to signing consent.). According to the procedure report, the common bile duct had multiple filling defects which were able to be cleaned out and once cleaned he was able to clearly see the ingrowth into the old metal stent and so a 10 [place] 40 mm stent was placed within the first metal stent and it protruded about a centimeter into the duodenum with good drainage noted. The intrahepatics appeared to be unremarkable - Dietary recommended TF with Suplena with goal rate 40mls/hr, orders placed for this for discharge as pt was previously on Jevity but complained of diarrhea. - Pts lipase started to trend slightly up on 08/07 and 08/08 - WBC 21.6 (07/28), 24.9 (07/29), 22.6 (07/30), 24 (07/31), 22.1 (08/02), 31.4 (08/03) , 29.2 (08/04), 23.5 (08/05), 34.9 (08/08), 33.0 (08/09), 40.6 (08/12) - lipase 2673 (07/28), 2471 (07/29), 758 (07/30), 215 (08/10), 155 (08/02), 730 (08/03 ), 509 (08/04), 423 (08/05), 708 (08/07), 768 (08/08), 596 (08/09), 459 (08/10/18), 271 (08/12) - On 08/07 the pts nurse reported that when flushing the J-tube that the water was coming up through the pts insertion site in the skin. - GJ tube reevaluated by Dr. Lala (08/08/18) G and J ports both patent. No findings of leakage from tube or through dermatotomy. Patient does appear to have some stasis of material in gastric lumen probably secondary to gastroparesis. Placed G-port to gravity drainage. - J-tube is reassessed by IR (08/13) and functional after flushing with warm water - Pts TF are up to goal rate (40 mL/hr), but pt again having drainage from the GJ tube insertion site. - Stop TF for now. - Reconsult IR to re-evaluate the GJ tube. The G tube may need to be placed to gravity drain. - continue clears - [place] prn - appreciate input from Palliative Medicine - Appreciate input from Dr. Stewart. - IV Solu-Medrol 60 mg IV Q6H (08/11 - 08/15) -> start to taper Solu-Medrol decreased to 60 mg IV Q12H (08/15) - Pt's daughter Caitlyn Perez was updated by phone by Dr. Eddy () - ID consulted per Ms. Perez's request. - Per ID IMPRESSION: "Leukocytosis. This is probably reactive. White blood cell count is improving. The patient received Solu-Medrol, which may lead to even further increase in the white count, but her white count was elevated prior to the Solu-Medrol. The patient has a diagnosis of pancreatitis, which could also be contributing to the white blood cell count elevation as well." - SCDs for DVT prophylaxis - supportive care Oral Thrush - Continue nystatin swish and swallow for the thrush. - Give a 10-day course of Diflucan po. Chronic kidney failure - Pt with baseline stage 3 CKD, pt follows with Dr. Melara - avoid nephrotoxic agents - Per RN several OTC Advil found hidden in a tissue box at patient's bedside. Discussed with patient and nurse that she should not be taking Advil given her renal function and should not be taking outside medications - Cr 3.37 (08/10), 3/48 (08/12), 3.46 (08/13), 3.39 (08/14), 3.30 (08/15), 3.23 (08/16 ), 3.21 (08/17) - continue IVFs - repeat BMP in AM Hypernatremia - resolved - sodium 151 (08/09), 147 (08/10), 145 (08/11), 136 (08/12), 137 (08/15), 136 (08/16) , 126 (08/17) - patient had not received free water flush due to concern regarding GJ tube Leukocytosis, persistent - [facility] Medical team has cared for Ms. Larsen for several years and many different admissions. - Pt tends to have marked persistent leukocytosis during her admissions which correlated to flares of her idiopathic pancreatitis - paradoxically, pt's leukocytosis has improved in the past, as well as her clinical condition with steroids - possibly d/t to a reactive process - Pt has had NO fever above 99.9F this entire admission - There is NO indication of infection. Pt has NO c/o cough, SOB, or dysuria. There is NO diarrhea. - appreciate input from Hematology, Dr. Perea. Leukocytosis is likely d/t Pancreatitis. - Pt/family request consultation from Infectious Disease, concerned that leukocytosis is d/t infection. - WBC 40.6 (08/12), 38.1 (08/13), 26.7 (08/14), 18.1 (08/15), 18.5 (08/16), 29.2 (08/17) - I appreciate the input from ID, . Dontafraid. - PO diflucan and nystatin s/s HTN (hypertension) - Cont. home meds - Monitor GERD (gastroesophageal reflux disease) - PPI Hypomagnesemia - repleted Hypokalemia - resoved anemia - d/t chronic disease, stable. - this diagnosis has been explored during prior hospitalizations and d/w Hematology - anemia felt to be d/t underlying disease processes - Hg 7.6 (08/13), 11.1 (08/14), 11.2 (08/15), 11.6 (08/16), 11.5 (08/17) - Pt was transfused 2 units PRBCs on 08/13 The exam, history, and the medical decision-making described in the above note were completed with the assistance of the mid-level provider. I reviewed and agree with the findings presented. I attest that I had a [id number] encounter with the patient on the same day, and personally performed and documented my assessment and findings in the medical record. IR evaluation today. pt has tube feeding leaking massively around the exit site. (1) Idiopathic pancreatitis Qualifiers:
[2018-08-18] MEDS: amLODIPine 5 MG Tablet PO SCH (09:02)
[2018-08-18] MEDS: Lipase/Protease/Amylase 12/38/60 DR Capsule PO SCH ×3 (09:02→17:30)
[2018-08-18] MEDS: Nystatin Liq 500,000 UNIT/5 ML UDC SWISH-SWAL SCH ×4 (09:02→21:25)
[2018-08-18] MEDS: Metoprolol Tartrate 25 MG Tablet PO SCH ×2 (09:02→21:26)
[2018-08-18] MEDS: MethylPREDNISolone Sod Succinate Inj 125 MG/2 ML Vial IV.PUSH SCH ×2 (09:03→21:25)
[2018-08-18] MEDS: Sucralfate 1 GM Tablet PO SCH ×3 (09:03→17:14)
[2018-08-18] MEDS: Sodium Chloride 0.9% 2 ML Flush BID IV.FLUSH SCH ×2 (09:04→21:27)
[2018-08-18 10:55] LABS: Baso # (Auto) 0.1 th/mm3 (0.0-0.2); Baso % (Auto) 0.4 % (0.0-2.0); Eos % (Auto) 0.1 % (0.0-4.0); Hematocrit 35.3 % (35.0-46.0); Hemoglobin 11.5 gm/dL (11.6-15.3); Lymph # (Auto) 0.3 th/mm3 (1.0-4.8); Lymph % (Auto) 1.4 % (9.0-44.0); Mean Corpuscular HGB Conc 32.7 % (32.0-36.0); Mean Corpuscular Hemoglobin 27.7 pg (27.0-34.0); Mean Corpuscular Volume 84.7 fL (80.0-100.0); Mean Platelet Volume 7.7 fL (7.0-11.0); Mono # (Auto) 0.2 th/mm3 (0.0-0.9); Mono % (Auto) 1.1 % (0.0-8.0); Neut # (Auto) 22.4 th/mm3 (1.8-7.7); Platelet Count 354 th/mm3 (150-450); Red Blood Count 4.16 mil/mm3 (4.00-5.30); Red Cell Distribution Width 17.7 % (11.6-17.2)
[2018-08-18 11:20] LABS: Calcium 7.4 mg/dL (8.5-10.1); Carbon Dioxide 22.6 meq/L (21.0-32.0)
[2018-08-18 11:22] LABS: Potassium 4.2 meq/L (3.5-5.1)
[2018-08-18 12:41] LABS: Lymphocytes 5 % (9-44); Metamyelocytes 2 % (0-1); Monocytes 3 % (0-8); Ovalocytes 1+
[2018-08-18 12:42] LABS: Platelet Estimate Normal (Normal); Platelet Morphology Normal (Normal)
[2018-08-18] MEDS: Fluconazole 100 MG Tablet PO SCH (17:14)
[2018-08-19] MEDS: Sod Chloride 0.9% Inj 1,000 ML IV.CONT SCH ×3 (04:37→20:59)
[2018-08-19 05:15] LABS: Baso % (Auto) 0.1 % (0.0-2.0); Hematocrit 33.6 % (35.0-46.0); Hemoglobin 11.3 gm/dL (11.6-15.3); Lymph # (Auto) 0.4 th/mm3 (1.0-4.8); Lymph % (Auto) 1.7 % (9.0-44.0); Mean Corpuscular HGB Conc 33.4 % (32.0-36.0); Mean Corpuscular Hemoglobin 28.1 pg (27.0-34.0); Mean Platelet Volume 7.5 fL (7.0-11.0); Mono # (Auto) 0.2 th/mm3 (0.0-0.9); Neut # (Auto) 23.4 th/mm3 (1.8-7.7); Neut % (Auto) 97.2 % (16.0-70.0); Platelet Count 317 th/mm3 (150-450); Red Blood Count 4.01 mil/mm3 (4.00-5.30); Red Cell Distribution Width 17.8 % (11.6-17.2)
[2018-08-19 05:54] LABS: Calcium 7.4 mg/dL (8.5-10.1); Carbon Dioxide 22.1 meq/L (21.0-32.0); Potassium 3.9 meq/L (3.5-5.1)
[2018-08-19 06:10] LABS: Total Protein 5.8 g/dL (6.4-8.2)
[2018-08-19] MEDS: amLODIPine 5 MG Tablet PO SCH (08:28)
[2018-08-19] MEDS: Sucralfate 1 GM Tablet PO SCH ×3 (08:29→17:28)
[2018-08-19] MEDS: Nystatin Liq 500,000 UNIT/5 ML UDC SWISH-SWAL SCH ×4 (08:29→20:58)
[2018-08-19] MEDS: Metoprolol Tartrate 25 MG Tablet PO SCH ×2 (08:29→20:58)
[2018-08-19] MEDS: Lipase/Protease/Amylase 12/38/60 DR Capsule PO SCH ×3 (08:29→17:30)
[2018-08-19] MEDS: MethylPREDNISolone Sod Succinate Inj 125 MG/2 ML Vial IV.PUSH SCH (08:29)
[2018-08-19 09:05] LABS: Lymphocytes 1 % (9-44); Metamyelocytes 1 % (0-1); Monocytes 1 % (0-8); Platelet Estimate Normal (Normal); Platelet Morphology Normal (Normal)
--- NOTE | 2018-08-19 11:01 | P.PNIM ---
Subjective Interval history: Pt reports continued abdominal pain and drainage from the GJ tube Pt was not seen by IR yesterday but there were orders placed to put the G tube to drainage Physical Exam Vital signs: Vital Signs 08/18/18 12:00 08/18/18 16:00 08/18/18 20:00 Temperature 97.5 F L 98.3 F 97.4 F L Pulse Rate 83 94 H 100 H Respiratory Rate 19 18 19 Blood Pressure 181/86 H 167/89 H 99/78 L Pulse Oximetry 100 100 99 08/19/18 00:04 08/19/18 08:00 Temperature 97.9 F 97.9 F Pulse Rate 87 99 H Respiratory Rate 19 16 Blood Pressure 164/96 H Pulse Oximetry 100 Intake & Output 08/18/18 08/19/18 08/19/18 18:59 06:59 18:59 Intake Total 1360 / 1360 1240 / 1240 Output Total 400 / 400 Balance 960 / 960 1240 / 1240 Weight 67.3 kg Intake: IV 1000 / 1000 1000 / 1000 NS Inj 1,000 ML @ 75 mls/hr IV. 1000 / 1000 1000 / 1000 CONT .[id number] [facility] Rx#:[id number] Oral 360 / 360 240 / 240 Output: Urine 400 / 400 Other: # Voids 3 Date of Last Bowel Movement 08/17/18 # Bowel Movements 2 Narrative: GENERAL: This is a 82 year old female, well-developed patient, in no apparent distress. CARDIO: Regular RESP: CTA bilaterally. ABD: +BS, soft, nontender, nondistended. GJ tube in place, active drainage from the GJ tube insertion site. Skin irritation under the bumper, gauze replaced around/under the bumper EXT: No edema. Results - Labs CBC & Chem 7: 08/19/18 03:29 08/19/18 03:29 Laboratory Results - last 24 hr 08/18/18 08/18/18 08/19/18 10:22 10:22 03:29 WBC 23.0 H 24.0 H RBC 4.16 4.01 Hgb 11.5 L 11.3 L Hct 35.3 33.6 L MCV 84.7 84.0 MCH 27.7 28.1 MCHC 32.7 33.4 RDW 17.7 H 17.8 H Plt Count 354 317 MPV 7.7 7.5 Prelim Diff (Auto) Slide review pending Slide review pending Neut % (Auto) 97.0 H 97.2 H Lymph % (Auto) 1.4 L 1.7 L Barron % (Auto) 1.1 1.0 Eos % (Auto) 0.1 0.0 Baso % (Auto) 0.4 0.1 Neut # (Auto) 22.4 H 23.4 H Lymph # (Auto) 0.3 L 0.4 L Barron # (Auto) 0.2 0.2 Eos # (Auto) 0.0 0.0 Baso # (Auto) 0.1 0.0 WBC Differential Manual diff final Manual diff final Seg Neuts % (Manual) 84 H 96 H Band Neuts % (Manual) 6 1 Lymphocytes % (Manual) 5 L 1 L Monocytes % (Manual) 3 1 Metamyelocytes % (Man) 2 H 1 Abs Neuts (Manual) 21.2 H 23.5 H Differential Comment . . Platelet Estimate Normal Normal Platelet Morphology Normal Normal Ovalocytes 1+ H Sodium 140 Potassium 4.2 Chloride 104 Carbon Dioxide 22.6 Anion Gap 13 BUN 66 H Creatinine 3.00 H Estimated GFR 18 L Random Glucose 241 H Calcium 7.4 L* Prot Corrected Calcium 8.0 L Total Protein 6.0 L 08/19/18 03:29 WBC RBC Hgb Hct MCV MCH MCHC RDW Plt Count MPV Prelim Diff (Auto) Neut % (Auto) Lymph % (Auto) Barron % (Auto) Eos % (Auto) Baso % (Auto) Neut # (Auto) Lymph # (Auto) Barron # (Auto) Eos # (Auto) Baso # (Auto) WBC Differential Seg Neuts % (Manual) Band Neuts % (Manual) Lymphocytes % (Manual) Monocytes % (Manual) Metamyelocytes % (Man) Abs Neuts (Manual) Differential Comment Platelet Estimate Platelet Morphology Ovalocytes Sodium 143 Potassium 3.9 Chloride 107 Carbon Dioxide 22.1 Anion Gap 14 BUN 64 H Creatinine 2.83 H Estimated GFR 19 L Random Glucose 171 H Calcium 7.4 L* Prot Corrected Calcium 8.1 L Total Protein 5.8 L - Imaging Abdomen/Pelvis CT 07/28/18 01:18 CONCLUSION: 1. Postoperative changes of biliary stent with biliary drainage catheter passing through the stent. Gastrojejunostomy tube again noted. 2. Mild stranding of fat around the pancreas could indicate a mild pancreatitis. 3. 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 GI Procedure 08/02/18 00:00 CONCLUSION: A biliary stent has been placed. It is in good position. There is good filling of the hepatic ducts. Tube Check 08/08/18 00:00 CONCLUSION: 1. Uncomplicated tube injection as above. The tube was not exchanged. Assessment and Plan - Assessment (1) Idiopathic pancreatitis Code(s): K85.00 - Idiopathic acute pancreatitis without necrosis or infection Status: Acute Plan: Idiopathic pancreatitis - Patient is an 82 y/o AAF with recurrent idiopathic pancreatitis. She has been hospitalized numerous times for issues with pain control related to recurrent pancreatitis. Her last admission was from 07/13/18 to 07/26/18 due to WAYNE, idiopathic pancreatitis and had her GJ tube exchanged 07/25/18. - Patient again presented to the ER last night due to worsening abd pain associated with nausea but no vomiting. Patient reports that she always had mild epigastric pain, but yesterday evening it again became more severe and is associated with nausea but not vomiting. Denies fever or chills, chest pain, cough, difficulty flushing J tube, or diarrhea. - On admission WBC 21.6, BUN 44, creatinine 2.60 and lipase 2673. - CT abd/pelvis was done and revealed: 1. Postoperative changes of biliary stent with biliary drainage catheter passing through the stent. Gastrojejunostomy tube again noted. 2. Mild stranding of fat around the pancreas could indicate a mild pancreatitis. 3. 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 - PO pain medication as needed - Appreciate input from GI. - Pt underwent repeat ERCP with stent exchange, 08/02/18 (ERCP and stent exchange cancelled on 08/01 as patient's daughter needed to talk with Dr. Ortega prior to signing consent.). According to the procedure report, the common bile duct had multiple filling defects which were able to be cleaned out and once cleaned he was able to clearly see the ingrowth into the old metal stent and so a 10 [place] 40 mm stent was placed within the first metal stent and it protruded about a centimeter into the duodenum with good drainage noted. The intrahepatics appeared to be unremarkable - Dietary recommended TF with Suplena with goal rate 40mls/hr, orders placed for this for discharge as pt was previously on Jevity but complained of diarrhea. - Pts lipase started to trend slightly up on 08/07 and 08/08 - WBC 21.6 (07/28), 24.9 (07/29), 22.6 (07/30), 24 (07/31), 22.1 (08/02), 31.4 (08/03) , 29.2 (08/04), 23.5 (08/05), 34.9 (08/08), 33.0 (08/09), 40.6 (08/12) - lipase 2673 (07/28), 2471 (07/29), 758 (07/30), 215 (08/10), 155 (08/02), 730 (08/03 ), 509 (08/04), 423 (08/05), 708 (08/07), 768 (08/08), 596 (08/09), 459 (08/10/18), 271 (08/12) - On 08/07 the pts nurse reported that when flushing the J-tube that the water was coming up through the pts insertion site in the skin. - GJ tube reevaluated by Dr. Lala (08/08/18) G and J ports both patent. No findings of leakage from tube or through dermatotomy. Patient does appear to have some stasis of material in gastric lumen probably secondary to gastroparesis. Placed G-port to gravity drainage. - J-tube is reassessed by IR (08/13) and functional after flushing with warm water - Pts TF are were up to goal rate (40 mL/hr), but pt again began having drainage from the GJ tube insertion site. - TF stopped on 08/18/18. - IR was reconsulted on 08/18/18 to re-evaluate the GJ tube. The G tube was ordered to be placed to gravity drain which was not done yesterday. I spoke with Patti, cardiac cath lab radiology technologist, and she spoke with Dr. Alegria and they will bring the pt down to inject the GJ tube to ensure it is placed appropriately. - Continue clears - [place] prn - appreciate input from Palliative Medicine - Appreciate input from Dr. Stewart. - IV Solu-Medrol 60 mg IV Q6H (08/11 - 08/15) -> start to taper Solu-Medrol decreased to 60 mg IV Q12H (08/15). - Change to PO Prednisone - Pt's daughter Caitlyn Perez was updated by phone by Dr. Eddy () - ID consulted per Ms. Perez's request. - Per ID IMPRESSION: "Leukocytosis. This is probably reactive. White blood cell count is improving. The patient received Solu-Medrol, which may lead to even further increase in the white count, but her white count was elevated prior to the Solu-Medrol. The patient has a diagnosis of pancreatitis, which could also be contributing to the white blood cell count elevation as well." - SCDs for DVT prophylaxis - supportive care Oral Thrush - Continue nystatin swish and swallow for the thrush. - Give a 10-day course of Diflucan po. Chronic kidney failure - Pt with baseline stage 3 CKD, pt follows with Dr. Melara - avoid nephrotoxic agents - Per RN several OTC Advil found hidden in a tissue box at patient's bedside. Discussed with patient and nurse that she should not be taking Advil given her renal function and should not be taking outside medications - Cr 3.37 (08/10), 3/48 (08/12), 3.46 (08/13), 3.39 (08/14), 3.30 (08/15), 3.23 (08/16 ), 3.21 (08/17) - continue IVFs - repeat BMP in AM Hypernatremia - resolved - sodium 151 (08/09), 147 (08/10), 145 (08/11), 136 (08/12), 137 (08/15), 136 (08/16) , 126 (08/17) - patient had not received free water flush due to concern regarding GJ tube Leukocytosis, persistent - [facility] Medical team has cared for Ms. Larsen for several years and many different admissions. - Pt tends to have marked persistent leukocytosis during her admissions which correlated to flares of her idiopathic pancreatitis - paradoxically, pt's leukocytosis has improved in the past, as well as her clinical condition with steroids - possibly d/t to a reactive process - Pt has had NO fever above 99.9F this entire admission - There is NO indication of infection. Pt has NO c/o cough, SOB, or dysuria. There is NO diarrhea. - appreciate input from Hematology, Dr. Perea. Leukocytosis is likely d/t Pancreatitis. - Pt/family request consultation from Infectious Disease, concerned that leukocytosis is d/t infection. - WBC 40.6 (08/12), 38.1 (08/13), 26.7 (08/14), 18.1 (08/15), 18.5 (08/16), 29.2 (08/17), 24.0 (08/19) - I appreciate the input from ID, Dr. Chahal. - PO diflucan and nystatin s/s HTN (hypertension) - Cont. home meds - Monitor GERD (gastroesophageal reflux disease) - PPI Hypomagnesemia - repleted Hypokalemia - resoved Anemia - d/t chronic disease, stable. - this diagnosis has been explored during prior hospitalizations and d/w Hematology - anemia felt to be d/t underlying disease processes - Hg 7.6 (08/13), 11.1 (08/14), 11.2 (08/15), 11.6 (08/16), 11.5 (08/17), 2.83 (08/19) - Pt was transfused 2 units PRBCs on 08/13 The exam, history, and the medical decision-making described in the above note were completed with the assistance of the mid-level provider. I reviewed and agree with the findings presented. I attest that I had a [id number] encounter with the patient on the same day, and personally performed and documented my assessment and findings in the medical record. IR consulted for feeding tube leak. cont ivf. (1) Idiopathic pancreatitis Qualifiers:
[2018-08-19] MEDS: Sodium Chloride 0.9% 2 ML Flush BID IV.FLUSH SCH ×2 (11:38→20:58)
[2018-08-19] MEDS ORDERED: Iohexol 350 MG/ML 50 ML Vial (for Rad Diag) G-TUBE ONE (13:28)
--- NOTE | 2018-08-19 13:39 | P.RAD ---
Post Procedure Progress Note - Pre Procedure Diagnosis (1) Feeding tube dysfunction - Post Procedure Diagnosis (1) Feeding tube dysfunction - Procedure Information Procedure Date: 08/19/18 Supervising Radiologist: Stephan Alegria Jr, MD Anesthesia: Other - Plan of Activity Patient to Unit: Nursing Unit Patient Condition: Good Additional Comments: Evaluation of GJ tube done for leakage around dermatotome. GJ tube injected. In good position. The balloon had fallen away from the stomach wall. This was synched back down to the stomach wall. Zip tie applied to disk to help prevent this from recurring. See PACS Report for procedural detail/treatment.
--- NOTE | 2018-08-19 13:58 | IR ---
EXAM DATE: 08/19/2018 12:00 AM EDT AGE/SEX: 82 years / Female INDICATIONS: Patient presents with a leaking Gastrojejunal feeding tube from insertion site in need of a Gastrojejunal tube evaluation with possible exchange. CLINICAL DATA: This is the patient's subsequent encounter. Patient reports that signs and symptoms h ave been present for 1 day and indicates a pain score of 8/10. MEDICAL/SURGICAL HISTORY: Chronic renal failure. Gastroesophageal reflux disease. Hypertensio n. Idiopathic Pancreatitis. Cholecystectomy. ERCP tube placement, Biliary stent, Total knee replac ement. COMPARISON: [facility], GASTRO-JEJUNOSTOMY TUBE INJECTION, 08/08/2018. . FLUORO TIME (min): 0.4 IMAGE SERIES: DEVICE(S): . . PROCEDURE : 1. Fluoroscopically guided tube injection. 2. Conscious sedation with continuous EKG and oximetry monitoring. The risks, benefits and alternatives to the procedure were explained and verbal and written consent w as obtained. The site was prepped in sterile fashion. Full sterile technique was used, including ca p, mask, sterile gloves and gown and a large sterile sheet. Hand hygiene and 2% chlorhexidine and/or betadine/alcohol prep was utilized per protocol for cutaneous antisepsis. With fluoroscopic guidance the previously placed tube was injected demonstrating the tube in good pos ition. The tip of the jejunal tube is within the proximal jejunum. The balloon has fallen away from t he anterior wall the stomach. This relates to the leakage around the tube. The balloon was pulled ruchi k to the anterior gastric wall and a zip tie utilized to secure the tube to try and prevent this from recurring. Conscious sedation was performed with the prescribed dosages and duration as above in the presence of an independent trained radiology nurse to assist in the monitoring of the patient. EKG and oximetry remained stable throughout the procedure. The patient tolerated the procedure well and there were n o complications. The patient was sent to post anesthesia recovery in stable condition. CONCLUSION: 1. Uncomplicated tube injection as above. The tube is in good position. Leakage around the tube is s econdary to the balloon having fallen away. The balloon was repositioned appropriately.. Electronically signed by: Stephan Alegria MD 08/19/2018 1:56 PM EDT
--- NOTE | 2018-08-19 16:18 | P.PNPAL ---
Reason for Visit Reason for visit: a. To assist with evaluation and management of symptoms including: Pain, nausea , debility b. To assist medical decision maker(s) with: better understanding of current medical conditions; weighing benefits/burdens of medical treatment options; making medical treatment decisions. Subjective Subjective/Interval History: Follow-up medically necessary for symptom management. Patient is sleeping, easily arousable. She is lethargic, oriented to self, place and situation. Patient endorsing abdominal discomfort, unable to rate pain or describe pain at this time. GJ tube currently clamped. Pain managed with hydrocodone/ acetaminophen 5/325-she is required prn hydrocodone x5 times in the past 24 hours. Patient denies nausea. Last on the as needed Zofran dose given on 08/18. Patient continued to have leakage around gastrojejunostomy tube. Patient underwent fluoroscopic guided gastrojejunostomy tube check. It was noted that the lunate fallen away from the stomach wall and this was synced back down to the stomach wall and was zip tied to disk. Per case management notes patient continues to decline discharge to a retirement facility and is requesting discharge home with home health care. Physical therapy following with patient and it appears patient has been being willingly participating in physical therapy. Is not currently requiring total care with almost all his ADLs. . Family/Friend Interactions: No family at bedside . Advance Directives Health Care Surrogate: Completed, but not made available Durable Power of Restaurant Manager: Completed, but not made available Health Care Surrogate Name and Number: HCP: Raj Perez Objective Vital Signs: Vital Signs 08/18/18 16:00 08/18/18 20:00 08/19/18 00:04 Temperature 98.3 F 97.4 F L 97.9 F Pulse Rate 94 H 100 H 87 Respiratory Rate 18 19 19 Blood Pressure 167/89 H 99/78 L Pulse Oximetry 100 99 100 08/19/18 08:00 08/19/18 12:00 Temperature 97.9 F 97.7 F Pulse Rate 99 H 84 Respiratory Rate 16 16 Blood Pressure 164/96 H 149/77 H Pulse Oximetry 100 Intake & Output 08/18/18 08/19/18 08/19/18 18:59 06:59 18:59 Intake Total 1360 / 1360 1240 / 1240 Output Total 400 / 400 Balance 960 / 960 1240 / 1240 Weight 67.3 kg Intake: IV 1000 / 1000 1000 / 1000 NS Inj 1,000 ML @ 75 mls/hr IV. 1000 / 1000 1000 / 1000 CONT .[id number] [facility] Rx#:[id number] Oral 360 / 360 240 / 240 Output: Urine 400 / 400 Other: # Voids 3 Date of Last Bowel Movement 08/17/18 # Bowel Movements 2 Physical Exam: CONSTITUTIONAL/GENERAL: This is a chronically ill looking patient, complaining of abdominal pain and nausea. TUBES/LINES/DRAINS: PIV, GJ tube SKIN: No jaundice, rashes, or lesions. Ecchymoses on upper extremities. No wounds seen anteriorly. Skin temperature appropriate. Not diaphoretic. EYES: PERRLA. No injection or drainage. Fundi not examined. ENT: Hearing grossly normal. No nasal bleeding or drainage. Moist oral mucosa CARDIOVASCULAR: Regular rate and rhythm without murmurs, gallops, or rubs. No JVD. Peripheral pulses symmetric. RESPIRATORY/CHEST: Symmetric, unlabored respirations. Lungs diminished in the bases. GASTROINTESTINAL: Abdomen soft, non-tender, nondistended. No guarding. No bowel sounds. MUSCULOSKELETAL: Extremities without clubbing, cyanosis, or edema. No mottling or clubbing. NEUROLOGICAL: Lethargic, oriented to self, place and situation. Follows commands. Moves all extremities. PSYCHIATRIC: No obvious anxiety/depression. no apparent hallucinations or other psychotic thought process. Diagnostic Tests Laboratory: Laboratory Results - last 72 hr 08/17/18 08/17/18 08/18/18 05:58 05:58 10:22 WBC 29.2 H D 23.0 H RBC 4.21 4.16 Hgb 11.5 L 11.5 L Hct 35.6 35.3 MCV 84.7 84.7 MCH 27.3 27.7 MCHC 32.3 32.7 RDW 17.4 H 17.7 H Plt Count 350 354 MPV 7.3 7.7 Prelim Diff (Auto) Manual diff required Slide review pending Neut % (Auto) 97.0 H Lymph % (Auto) 1.4 L [place] % (Auto) 1.1 Eos % (Auto) 0.1 Baso % (Auto) 0.4 Neut # (Auto) 22.4 H Lymph # (Auto) 0.3 L [place] # (Auto) 0.2 Eos # (Auto) 0.0 Baso # (Auto) 0.1 WBC Differential Manual diff final Manual diff final Seg Neuts % (Manual) 92 H 84 H Band Neuts % (Manual) 7 H 6 Lymphocytes % (Manual) 1 L 5 L Monocytes % (Manual) 3 Metamyelocytes % (Man) 2 H Abs Neuts (Manual) 28.9 H 21.2 H Differential Comment . . Toxic Vacuolation Present H Platelet Estimate Normal Normal Platelet Morphology Normal Normal RBC Morphology Normal Ovalocytes 1+ H Sodium 136 Potassium 4.5 D Chloride 105 Carbon Dioxide 17.7 L Anion Gap 13 BUN 64 H Creatinine 3.21 H Estimated GFR 17 L Random Glucose 206 H Calcium 7.1 L* Prot Corrected Calcium 7.6 L Total Bilirubin 0.3 AST 21 ALT 34 Alkaline Phosphatase 156 H Total Protein 6.1 L Albumin 1.9 L 08/18/18 08/19/18 08/19/18 10:22 03:29 03:29 WBC 24.0 H RBC 4.01 Hgb 11.3 L Hct 33.6 L MCV 84.0 MCH 28.1 MCHC 33.4 RDW 17.8 H Plt Count 317 MPV 7.5 Prelim Diff (Auto) Slide review pending Neut % (Auto) 97.2 H Lymph % (Auto) 1.7 L [place] % (Auto) 1.0 Eos % (Auto) 0.0 Baso % (Auto) 0.1 Neut # (Auto) 23.4 H Lymph # (Auto) 0.4 L [place] # (Auto) 0.2 Eos # (Auto) 0.0 Baso # (Auto) 0.0 WBC Differential Manual diff final Seg Neuts % (Manual) 96 H Band Neuts % (Manual) 1 Lymphocytes % (Manual) 1 L Monocytes % (Manual) 1 Metamyelocytes % (Man) 1 Abs Neuts (Manual) 23.5 H Differential Comment . Toxic Vacuolation Platelet Estimate Normal Platelet Morphology Normal RBC Morphology Ovalocytes Sodium 140 143 Potassium 4.2 3.9 Chloride 104 107 Carbon Dioxide 22.6 22.1 Anion Gap 13 14 BUN 66 H 64 H Creatinine 3.00 H 2.83 H Estimated GFR 18 L 19 L Random Glucose 241 H 171 H Calcium 7.4 L* 7.4 L* Prot Corrected Calcium 8.0 L 8.1 L Total Bilirubin AST ALT Alkaline Phosphatase Total Protein 6.0 L 5.8 L Albumin Result Diagrams: 08/19/18 03:29 08/19/18 03:29 Imaging: Abdomen/Pelvis CT 07/28/18 01:18 CONCLUSION: 1. Postoperative changes of biliary stent with biliary drainage catheter passing through the stent. Gastrojejunostomy tube again noted. 2. Mild stranding of fat around the pancreas could indicate a mild pancreatitis. 3. 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 GI Procedure 08/02/18 00:00 CONCLUSION: A biliary stent has been placed. It is in good position. There is good filling of the hepatic ducts. Tube Check 08/19/18 00:00 CONCLUSION: 1. Uncomplicated tube injection as above. The tube is in good position. Leakage around the tube is secondary to the balloon having fallen away. The balloon was repositioned appropriately.. Procedures: 08/02/18-ERCP with stent exchange 08/08/18-GJ tube check by interventional radiology 08/12/18-GJ tube check by interventional radiology 08/19/18-GJ tube check by interventional radiology Assessment and Plan - Disease Oriented Problem List (1) Leukocytosis (2) Hypernatremia (3) Hypokalemia (4) HTN (hypertension) (5) CKD (chronic kidney disease) (6) GERD (gastroesophageal reflux disease) (7) Anemia - Symptom Scale (1) Pain 0-10 Scale: Unable to quantify Comment: Complaining of abdominal pain. Patient unable to describe pain or rate pain at this time. (2) Nausea 0-10 Scale: Unable to quantify Comment: Patient complaining of nausea. (3) Debility 0-10 Scale: Unable to quantify Comment: Progressive. Pertinent Non-Medical Issues: Psychosocial: Patient is retired. She had 2 children and one of her children is . She lives with her daughter. Spiritual: Patient is Sabianist Legal:Never completed advance directives. Ethical issues impacting care: None identified at this time Important Contacts: Daughter -Caitlyn Perez [phone] extension [phone] Granddaughter -Anita Albert [phone] Prognosis: Mrs Larsen is an 82-year-old female with a history significant for recurrent idiopathic pancreatitis, GERD, hypertension, anemia, chronic kidney disease and has a gastrojejunal tube. Patient has been hospitalized numerous times for issues regarding pain control related to recurrent pancreatitis. The last admission was from 06/291813/10/18 due to acute kidney injury, idiopathic pancreatitis and exchange of GJ tube on 07/25/18. Patient presented to the ER on 07/28/18 with complaints of worsening abdominal pain associated with nausea. Clinical course complicated with abdominal pain, persistent leukocytosis, elevated lipase and imaging consistent with acute pancreatitis. Given ongoing multiple comorbidities and multiple hospitalizations, patient remains at high risk for further complications, deterioration and decline. Code Status: Full Code Plan: PLAN: Legal decision maker: Patient is currently oriented to self, place and situation. Appears to be able to participate in medical decision making. According to [place] statute, in the event that patient is incapacitated, her only daughter Caitlyn Perez will serve as her healthcare proxy. Goals: Goals remain aggressive. Per case management notes, patient continues to decline discharge to a retirement facility and is requesting discharge home with home health care. Physical therapy following with patient and it appears patient has not been being willingly participating in physical therapy. Per previous discussion with patient, she wants to be discharged home and her daughter Caitlyn supported patient`s decision to be discharged home with home health care. CODE STATUS: Full code SYMPTOMS: * Pain: Patient has history of idiopathic pancreatitis. Came in complaining with abdominal pain which appears to be chronic. Lipase is elevated. Patient is currently on hydrocodone/acetaminophen 5/325 every 4hrs prn. Patient required x5 prn doses of Hydrocodone/acetaminophen 5/325 in the past 24hrs. Patient currently c/o pain. * Nausea: Patient has history of pancreatitis. She came in complaining with nausea. Patient is mostly fed via GJ tube. ERCP on 08/02 with stent replacement. Zofran 4mg prn IVP q 6 hrs for nausea available. Denying nausea. Last prn Zofran dose given on 08/18/18. * Debility: Patient has had multiple hospitalizations with complaints of abdominal pain. Patient ambulates with a walker at home. PT consulted, recommending PT at rehab. Patient is refusing to go to a retirement facility for rehab, she would want to be discharged back home and his daughter who is here [facility] is supportive of her decision. Palliative care will continue to follow the patient during hospital course as condition evolves, to assist patient/decision-maker with understanding of their medical conditions, weighing benefits/burdens of treatment options, for clarification of goals of treatment. Additionally will assist with any symptoms of palliative concern Attestation Attestation: To help prompt me to consider important information that might be impacting today's encounter and assessment, information from prior notes written by myself or my colleagues may have been "brought forward" into today's note. My signature on this note, however, is an attestation that I personally performed the exam, history, and/or decision-making noted today, and, unless otherwise indicated, the interactions with patient, family, and staff as well as the review of records all occurred today. I also attest that the listed assessment and stated plan reflect my best clinical judgment today based on the combination of historical information, prior notes, and today's exam/ interactions. When time spent is documented, it refers only to time spent today by the signer, or if indicated, combined time spent today by collaborating physician/nurse practitioner.
[2018-08-19] MEDS: Fluconazole 100 MG Tablet PO SCH (16:38)
[2018-08-19] MEDS: predniSONE 20 MG Tablet PO SCH (20:58)
[2018-08-20] MEDS: Sod Chloride 0.9% Inj 1,000 ML IV.CONT SCH ×2 (08:06→20:14)
[2018-08-20] MEDS: Sucralfate 1 GM Tablet PO SCH ×3 (08:07→17:11)
[2018-08-20] MEDS: amLODIPine 5 MG Tablet PO SCH (08:08)
[2018-08-20] MEDS: Metoprolol Tartrate 25 MG Tablet PO SCH ×2 (08:08→20:06)
[2018-08-20] MEDS: Nystatin Liq 500,000 UNIT/5 ML UDC SWISH-SWAL SCH ×4 (08:08→20:06)
[2018-08-20] MEDS: predniSONE 20 MG Tablet PO SCH ×2 (08:08→20:06)
[2018-08-20] MEDS: Sodium Chloride 0.9% 2 ML Flush BID IV.FLUSH SCH ×2 (08:14→20:06)
--- NOTE | 2018-08-20 09:25 | P.PNIM ---
Subjective Interval history: Pt complains of pain across her abdomen She was evaluated by IR on 08/19 and it was found that the balloon had fallen away from the stomach wall. This was synched back down to the stomach wall. Zip tie applied to disk to help prevent this from recurring. She is tolerating TF at 30Ml/hr currently and no drainage noted from around the G-tube insertion site Physical Exam Vital signs: Vital Signs 08/19/18 12:00 08/19/18 16:00 08/19/18 20:00 Temperature 97.7 F 97.7 F 97.3 F L Pulse Rate 84 93 H 98 H Respiratory Rate 16 17 16 Blood Pressure 149/77 H 172/87 H 167/85 H Pulse Oximetry 100 100 98 08/20/18 00:00 08/20/18 06:10 08/20/18 08:00 Temperature 97.1 F L 97.7 F 97.1 F L Pulse Rate 86 89 91 H Respiratory Rate 17 18 18 Blood Pressure 172/85 H 163/88 H 155/88 H Pulse Oximetry 98 97 100 Intake & Output 08/19/18 08/20/18 08/20/18 18:59 06:59 18:59 Intake Total 1340 / 1340 1616 / 1616 Balance 1340 / 1340 1616 / 1616 Weight 66.2 kg Intake: IV 1000 / 1000 676 / 676 NS Inj 1,000 ML @ 75 mls/hr IV. 1000 / 1000 676 / 676 CONT .[id number] [facility] Rx#:[id number] Oral 340 / 340 480 / 480 Tube Feeding 60 / 60 Tube Irrigant 400 / 400 Other: # Voids 6 4 # Bowel Movements 1 2 Narrative: GENERAL: This is a 82 year old female, well-developed patient, in no apparent distress. CARDIO: Regular RESP: CTA bilaterally. ABD: +BS, soft, nontender, nondistended. GJ tube in place. Skin irritation under the bumper, gauze replaced around/under the bumper EXT: No edema. Results - Labs CBC & Chem 7: 08/19/18 03:29 08/19/18 03:29 - Imaging Impressions Tube Check 08/19/18 00:00 CONCLUSION: 1. Uncomplicated tube injection as above. The tube is in good position. Leakage around the tube is secondary to the balloon having fallen away. The balloon was repositioned appropriately.. Assessment and Plan - Assessment (1) Idiopathic pancreatitis Code(s): K85.00 - Idiopathic acute pancreatitis without necrosis or infection Status: Acute Plan: Idiopathic pancreatitis - Patient is an 82 y/o AAF with recurrent idiopathic pancreatitis. She has been hospitalized numerous times for issues with pain control related to recurrent pancreatitis. Her last admission was from 07/13/18 to 07/26/18 due to [place], idiopathic pancreatitis and had her GJ tube exchanged 07/25/18. - Patient again presented to the ER last night due to worsening abd pain associated with nausea but no vomiting. Patient reports that she always had mild epigastric pain, but yesterday evening it again became more severe and is associated with nausea but not vomiting. Denies fever or chills, chest pain, cough, difficulty flushing J tube, or diarrhea. - On admission WBC 21.6, BUN 44, creatinine 2.60 and lipase 2673. - CT abd/pelvis was done and revealed: 1. Postoperative changes of biliary stent with biliary drainage catheter passing through the stent. Gastrojejunostomy tube again noted. 2. Mild stranding of fat around the pancreas could indicate a mild pancreatitis. 3. 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 - PO pain medication as needed - Appreciate input from GI. - Pt underwent repeat ERCP with stent exchange, 08/02/18 (ERCP and stent exchange cancelled on 08/01 as patient's daughter needed to talk with Dr. Ortega prior to signing consent.). According to the procedure report, the common bile duct had multiple filling defects which were able to be cleaned out and once cleaned he was able to clearly see the ingrowth into the old metal stent and so a 10 [place] 40 mm stent was placed within the first metal stent and it protruded about a centimeter into the duodenum with good drainage noted. The intrahepatics appeared to be unremarkable - Dietary recommended TF with [place] with goal rate 40mls/hr, orders placed for this for discharge as pt was previously on Jevity but complained of diarrhea. - Pts lipase started to trend slightly up on 08/07 and 08/08 - WBC 21.6 (07/28), 24.9 (07/29), 22.6 (07/30), 24 (07/31), 22.1 (08/02), 31.4 (08/03) , 29.2 (08/04), 23.5 (08/05), 34.9 (08/08), 33.0 (08/09), 40.6 (08/12) - lipase 2673 (07/28), 2471 (07/29), 758 (07/30), 215 (08/10), 155 (08/02), 730 (08/03 ), 509 (08/04), 423 (08/05), 708 (08/07), 768 (08/08), 596 (08/09), 459 (08/10/18), 271 (08/12) - On 08/07 the pts nurse reported that when flushing the J-tube that the water was coming up through the pts insertion site in the skin. - GJ tube reevaluated by Dr. Lala (08/08/18) G and J ports both patent. No findings of leakage from tube or through dermatotomy. Patient does appear to have some stasis of material in gastric lumen probably secondary to gastroparesis. Placed G-port to gravity drainage. - J-tube is reassessed by IR (08/13) and functional after flushing with warm water - Pts TF are were up to goal rate (40 mL/hr), but pt again began having drainage from the GJ tube insertion site. - TF stopped on 08/18/18. - IR was reconsulted on 08/18/18 to re-evaluate the GJ tube. The G tube was ordered to be placed to gravity drain which was not done. I contacted IR and they brought the pt down to inject the GJ tube and found the balloon had fallen away from the stomach wall. This was synched back down to the stomach wall. Zip tie applied to disk to help prevent this from recurring. - Pt was resumed on TF and currently tolerating 30mL/hr, advance to goal rate of 40ml/hr as tolerated - Continue clears - [place] prn - appreciate input from Palliative Medicine - Appreciate input from Dr. Stewart. - IV Solu-Medrol 60 mg IV Q6H (08/11 - 08/15) -> start to taper Solu-Medrol decreased to 60 mg IV Q12H (08/15). Pt tapered do Prednisone 20mg BID on 08/19/18 - ID consulted per pts daughter, Ms. Perez's request. - Per ID IMPRESSION: "Leukocytosis. This is probably reactive. White blood cell count is improving. The patient received Solu-Medrol, which may lead to even further increase in the white count, but her white count was elevated prior to the Solu-Medrol. The patient has a diagnosis of pancreatitis, which could also be contributing to the white blood cell count elevation as well." - SCDs for DVT prophylaxis - supportive care Oral Thrush - Continue nystatin swish and swallow for the thrush. - Give a 10-day course of Diflucan po through 08/22/18. Chronic kidney failure - Pt with baseline stage 3 CKD, pt follows with Dr. Melara - avoid nephrotoxic agents - Per RN several OTC Advil found hidden in a tissue box at patient's bedside. Discussed with patient and nurse that she should not be taking Advil given her renal function and should not be taking outside medications - Cr 3.37 (08/10), 3/48 (08/12), 3.46 (08/13), 3.39 (08/14), 3.30 (08/15), 3.23 (08/16 ), 3.21 (08/17), 2.83 (08/19) - continue IVFs - repeat BMP in AM Hypernatremia - resolved - sodium 151 (08/09), 147 (08/10), 145 (08/11), 136 (08/12), 137 (08/15), 136 (08/16) , 126 (08/17) - patient had not received free water flush due to concern regarding GJ tube Leukocytosis, persistent - [facility] Medical team has cared for Ms. Larsen for several years and many different admissions. - Pt tends to have marked persistent leukocytosis during her admissions which correlated to flares of her idiopathic pancreatitis - paradoxically, pt's leukocytosis has improved in the past, as well as her clinical condition with steroids - possibly d/t to a reactive process - Pt has had NO fever above 99.9F this entire admission - There is NO indication of infection. Pt has NO c/o cough, SOB, or dysuria. There is NO diarrhea. - appreciate input from Hematology, Dr. Perea. Leukocytosis is likely d/t Pancreatitis. - Pt/family request consultation from Infectious Disease, concerned that leukocytosis is d/t infection. - WBC 40.6 (08/12), 38.1 (08/13), 26.7 (08/14), 18.1 (08/15), 18.5 (08/16), 29.2 (08/17), 24.0 (08/19) - I appreciate the input from ID, Dr. Chahal. - PO diflucan and nystatin s/s HTN (hypertension) - Cont. home meds - Monitor GERD (gastroesophageal reflux disease) - PPI Hypomagnesemia - repleted Hypokalemia - resoved Anemia - d/t chronic disease, stable. - this diagnosis has been explored during prior hospitalizations and d/w Hematology - anemia felt to be d/t underlying disease processes - Hg 7.6 (08/13), 11.1 (08/14), 11.2 (08/15), 11.6 (08/16), 11.5 (08/17), 2.83 (08/19) - Pt was transfused 2 units PRBCs on 08/13 The exam, history, and the medical decision-making described in the above note were completed with the assistance of the mid-level provider. I reviewed and agree with the findings presented. I attest that I had a [id number] encounter with the patient on the same day, and personally performed and documented my assessment and findings in the medical record. PT feeding tube adjusted and leak corrected. skin around tube site irritated and discussed aggressive care with nursing. (1) Idiopathic pancreatitis Qualifiers:
[2018-08-20] MEDS: Lipase/Protease/Amylase 12/38/60 DR Capsule PO SCH ×3 (10:09→17:34)
[2018-08-20] MEDS: Fluconazole 100 MG Tablet PO SCH (16:31)
[2018-08-20] MEDS: Acetaminophen 325 MG Tablet PO PRN (20:05)
[2018-08-21] MEDS: amLODIPine 5 MG Tablet PO SCH (08:43)
[2018-08-21] MEDS: Metoprolol Tartrate 25 MG Tablet PO SCH ×2 (08:43→20:32)
[2018-08-21] MEDS: Sucralfate 1 GM Tablet PO SCH ×3 (08:43→17:17)
[2018-08-21] MEDS: Sod Chloride 0.9% Inj 1,000 ML IV.CONT SCH (08:44)
[2018-08-21] MEDS: Lipase/Protease/Amylase 12/38/60 DR Capsule PO SCH ×3 (08:44→18:03)
[2018-08-21] MEDS: predniSONE 20 MG Tablet PO SCH ×2 (08:44→20:32)
[2018-08-21] MEDS: Nystatin Liq 500,000 UNIT/5 ML UDC SWISH-SWAL SCH ×4 (08:44→20:32)
[2018-08-21] MEDS: Sodium Chloride 0.9% 2 ML Flush BID IV.FLUSH SCH ×2 (08:44→20:33)
[2018-08-21 10:11] LABS: Baso % (Auto) 0.1 % (0.0-2.0); Eos % (Auto) 0.1 % (0.0-4.0); Hematocrit 34.6 % (35.0-46.0); Hemoglobin 11.2 gm/dL (11.6-15.3); Lymph # (Auto) 0.4 th/mm3 (1.0-4.8); Lymph % (Auto) 1.2 % (9.0-44.0); Mean Corpuscular HGB Conc 32.4 % (32.0-36.0); Mean Corpuscular Hemoglobin 27.4 pg (27.0-34.0); Mean Corpuscular Volume 84.5 fL (80.0-100.0); Mean Platelet Volume 7.7 fL (7.0-11.0); Mono # (Auto) 0.6 th/mm3 (0.0-0.9); Mono % (Auto) 1.9 % (0.0-8.0); Neut # (Auto) 30.9 th/mm3 (1.8-7.7); Neut % (Auto) 96.7 % (16.0-70.0); Platelet Count 199 th/mm3 (150-450); Red Blood Count 4.09 mil/mm3 (4.00-5.30); Red Cell Distribution Width 17.6 % (11.6-17.2)
[2018-08-21 10:52] LABS: Lymphocytes 2 % (9-44); Monocytes 1 % (0-8); Platelet Estimate Normal (Normal); Platelet Morphology Normal (Normal); RBC Morphology Normal (Normal)
[2018-08-21 10:59] LABS: Calcium 7.4 mg/dL (8.5-10.1); Carbon Dioxide 25.4 meq/L (21.0-32.0); Potassium 3.3 meq/L (3.5-5.1)
[2018-08-21 11:29] LABS: Total Protein 5.6 g/dL (6.4-8.2)
[2018-08-21] MEDS ORDERED: Potassium Chloride 10 MEQ ER Capsule PO ONE (15:48)
[2018-08-21] MEDS: Fluconazole 100 MG Tablet PO SCH (16:18)
[2018-08-22] MEDS: Sod Chloride 0.9% Inj 1,000 ML IV.CONT SCH ×2 (07:14→12:47)
--- NOTE | 2018-08-22 07:24 | P.PNONC ---
Subjective Interval history: Patient still complaining of abdominal pain 8 out of 10 but stated that it is better. She is able to drink some soup. She still has loose stool. She denies any chest pain or shortness of breath. Objective Vital Signs/Intake & Output: Vital Signs 08/21/18 08:00 08/21/18 12:00 08/21/18 16:00 Temperature 97.6 F 97.6 F 97.5 F L Pulse Rate 80 88 96 H Respiratory Rate 17 18 19 Blood Pressure 147/76 H 170/81 H 165/92 H Pulse Oximetry 100 93 L 100 08/21/18 20:00 08/22/18 00:00 Temperature 97.7 F 97.6 F Pulse Rate 102 H 86 Respiratory Rate 20 20 Blood Pressure 166/83 H 164/84 H Pulse Oximetry 100 100 Intake & Output 08/21/18 08/22/18 08/22/18 18:59 06:59 18:59 Intake Total 1600 / 1600 1000 / 1000 Balance 1600 / 1600 1000 / 1000 Weight 61.7 kg Intake: IV 600 / 600 1000 / 1000 NS Inj 1,000 ML @ 75 mls/hr IV. 600 / 600 1000 / 1000 CONT .[id number] HITESH Rx#:[id number] Oral 1000 / 1000 Other: # Voids 5 4 Date of Last Bowel Movement 08/20/18 08/20/18 # Bowel Movements 0 Result Diagrams: 08/21/18 09:23 08/21/18 09:23 Laboratory Results: Laboratory Results - last 24 hr 08/21/18 08/21/18 09:23 09:23 WBC 32.0 H RBC 4.09 Hgb 11.2 L Hct 34.6 L MCV 84.5 MCH 27.4 MCHC 32.4 RDW 17.6 H Plt Count 199 D MPV 7.7 Prelim Diff (Auto) Slide review pending Neut % (Auto) 96.7 H Lymph % (Auto) 1.2 L [place] % (Auto) 1.9 Eos % (Auto) 0.1 Baso % (Auto) 0.1 Neut # (Auto) 30.9 H Lymph # (Auto) 0.4 L [place] # (Auto) 0.6 Eos # (Auto) 0.0 Baso # (Auto) 0.0 WBC Differential Manual diff final Seg Neuts % (Manual) 90 H Band Neuts % (Manual) 7 H Lymphocytes % (Manual) 2 L Monocytes % (Manual) 1 Abs Neuts (Manual) 31.0 H Differential Comment . Platelet Estimate Normal Platelet Morphology Normal RBC Morphology Normal Sodium 140 Potassium 3.3 L Chloride 109 H Carbon Dioxide 25.4 Anion Gap 6 BUN 53 H Creatinine 2.52 H Estimated GFR 22 L Random Glucose 219 H Calcium 7.4 L* Prot Corrected Calcium 8.2 L Total Protein 5.6 L Medications: Active Medications Generic Name Dose Route Start Last Admin Trade Name Freq PRN Reason Stop Dose Admin Acetaminophen 650 mg 07/30/18 21:53 08/20/18 20:05 Tylenol PO 650 mg Q6H PRN Administration TEMPERATURE > 101 F Hydrocodone Bitart/Acetaminophen 1 tab 08/02/18 07:00 08/21/18 16:18 [place] 5/325 PO 1 tab Q4H PRN Administration FOR PAIN SCALE 2 TO 10 Amlodipine Besylate 5 mg 07/28/18 09:00 08/21/18 08:43 Norvasc PO 5 mg DAILY HITESH Administration Lipase/Protease/Amylase 1 cap 07/28/18 09:30 08/21/18 18:[address] PO 1 cap TIDPC HITESH Administration Calcium Carbonate 500 mg 08/14/18 21:00 08/21/18 20:32 Tums Chew CHEW 500 mg BID HITESH Administration Clonidine HCl 0.1 mg 08/18/18 16:08 08/19/18 23:47 Catapres PO 0.1 mg Q6H PRN Administration systolic BP over 170 Duloxetine HCl 20 mg 07/28/18 09:00 08/21/18 08:44 Cymbalta PO 20 mg DAILY HITESH Administration Fluconazole 100 mg 08/13/18 16:00 08/21/18 16:18 Diflucan PO 08/22/18 23:59 100 mg Q24H HITESH Administration Sodium Chloride 1,000 mls @ 75 mls/hr 08/03/18 15:02 08/22/18 07:14 Ns Inj IV.CONT Not Given .[id number] [facility] Metoprolol Tartrate 25 mg 07/28/18 09:00 08/21/18 20:32 Lopressor PO 25 mg BID HITESH Administration Multi-Ingredient Ointment 1 applic 08/02/18 14:32 08/09/18 14:24 Blistex Lip [place] TOPICAL 1 applic Q1H PRN Administration DRY LIPS Nystatin 5 ml 08/13/18 18:00 08/21/18 20:32 Mycostatin Liq SWISH-SWAL 5 ml QID HITESH Administration Ondansetron HCl 4 mg 07/31/18 22:00 08/18/18 09:03 Zofran Inj IV.PUSH 4 mg Q4HR PRN Administration NAUSEA OR VOMITING Pantoprazole Sodium 40 mg 07/28/18 09:00 08/21/18 20:32 Protonix PO 40 mg BID HITESH Administration Prednisone 20 mg 08/19/18 21:00 08/21/18 20:32 Deltasone PO 20 mg BID HITESH Administration Sodium Chloride 2 ml 08/10/18 21:00 08/21/18 20:33 Ns Flush IV.FLUSH 2 ml BID HITESH Administration Sterile Water 200 ml 07/28/18 12:00 08/22/18 07:11 Free Water G-TUBE 200 ml Q6HR HITESH Administration Sucralfate 1 gm 07/28/18 09:00 08/21/18 17:17 Carafate PO 1 gm TID HITESH Administration Ursodiol 300 mg 07/28/18 09:00 08/21/18 20:32 Actigall PO 300 mg BID HITESH Administration Objective Remarks: GENERAL: Well-nourished, well-developed patient. Weak. SKIN: Warm and dry. HEAD: Normocephalic. EYES: No scleral icterus. No injection or drainage. NECK: Supple, trachea midline. No JVD or lymphadenopathy. LYMPHATIC: No adenopathy. CARDIOVASCULAR: Regular rate and rhythm without murmurs. RESPIRATORY: Breath sounds equal bilaterally. No accessory muscle use. GASTROINTESTINAL: Abdomen soft, tender in the mid abdomen, positive bowel sounds. EXTREMITIES: No cyanosis, or edema. MUSCULOSKELETAL: Adequate muscle tone. NEUROLOGICAL: No obvious focal deficit. Awake, alert, and oriented x3. PSYCHIATRIC: Appropriate mood and affect; insight and judgment normal. Assessment/Plan (1) Idiopathic pancreatitis Code(s): K85.00 - Idiopathic acute pancreatitis without necrosis or infection Status: Acute (2) Anemia Code(s): D64.9 - Anemia, unspecified Status: Chronic (3) Leukocytosis Code(s): D72.829 - Elevated white blood cell count, unspecified Status: Acute - Plan 1. Chronic leukocytosis, most consistent with a leukemoid reaction. She has had fluctuating white blood cell counts for several years that usually coincide with a hospital admissions and exacerbation of pancreatitis. In February 2017, she had flow cytometry which did not show any abnormal immunophenotype and no evidence of leukemia. JAK2 mutation and FISH study for BCR-ABL at that time was also negative. During this hospital stay, her white blood cell count trended up from 21,000 to 35,000. There was also evidence of bandemia. I think this is most consistent with a reactive process. August 11, 2018. Sed rate and C-reactive protein both significantly elevated Consistent with inflammatory process. This is likely the reason for leukocytosis. I doubt that she has underlying bone marrow disorder. August 12, 2018. WBC trended up to 40.6. This may be due to the steroid which was started yesterday. August 15, 2018. Patient's abdominal pain slightly better since started on steroid. WBC has trended down to 26.7. She remains afebrile. Infectious disease is following. August 16, 2018. White blood cell count trended down to 18.8. She remains afebrile. It appears that she is responding to steroids with decreased inflammation. August 16, 2018. White blood cell count trended back up to 29.2. This may be demargination from steroid. She remains afebrile. August 22, 2018. WBC still fluctuating. It went down to 23,000 but trended back up to 32,000 yesterday. This may be a combination of inflammatory process and steroid. Infectious disease workup has been negative. 2. Chronic anemia, which is multifactorial due to chronic kidney disease as well as chronic inflammatory disease. Her hemoglobin trended down from 9.9 to 8.4 during this hospital stay. We will check iron studies and vitamin studies. Can consider giving her Epogen if her hemoglobin continues to trend down. She has no evidence of bleeding at this time. August 11, 2018. Iron study and vitamin study did not show any deficiency. The anemia is secondary to chronic kidney disease and chronic inflammatory disease. Her hemoglobin is stable. August 04, 2018. Hemoglobin stable at 7.7. No evidence of bleeding. August 15, 2018. She received 2 units of PRBC transfusion and hemoglobin up to 11.1. August 16, 2018. Hemoglobin remains stable at 11.2 since transfusion. August 22, 2018. Hemoglobin has been stable since transfusion. 3. Fluctuating thrombocytosis. She has mild thrombocytosis intermittently, again consistent with a reactive process. August 11, 2018. Thrombocytosis is secondary to reactive process. August 12, 2018. Platelet count trended back down to 423,000. August 17, 2018. Platelet count has trended back down to normal. 4. Recurrent pancreatitis. This has been going on for more than 5 years. She recently had an endoscopic retrograde cholangiopancreatography with biliary stent exchange. She is still on steroid and her pain is stable. RECOMMENDATIONS: 1. Continue to monitor CBC. 2. We will repeat flow cytometry if WBC continues to trend up. (1) Idiopathic pancreatitis Qualifiers: (2) Anemia Qualifiers: Anemia type: unspecified type Qualified Code(s): D64.9 - Anemia, unspecified
[2018-08-22 07:33] LABS: Baso % (Auto) 0.1 % (0.0-2.0); Hematocrit 32.9 % (35.0-46.0); Hemoglobin 10.3 gm/dL (11.6-15.3); Lymph # (Auto) 0.6 th/mm3 (1.0-4.8); Lymph % (Auto) 2.6 % (9.0-44.0); Mean Corpuscular HGB Conc 31.4 % (32.0-36.0); Mean Corpuscular Hemoglobin 27.4 pg (27.0-34.0); Mean Corpuscular Volume 87.1 fL (80.0-100.0); Mean Platelet Volume 8.3 fL (7.0-11.0); Mono # (Auto) 0.3 th/mm3 (0.0-0.9); Mono % (Auto) 1.2 % (0.0-8.0); Neut # (Auto) 22.7 th/mm3 (1.8-7.7); Neut % (Auto) 96.1 % (16.0-70.0); Platelet Count 177 th/mm3 (150-450); Red Blood Count 3.77 mil/mm3 (4.00-5.30); Red Cell Distribution Width 18.2 % (11.6-17.2); White Blood Count 23.6 th/mm3 (4.0-11.0)
[2018-08-22 07:40] LABS: Calcium 7.8 mg/dL (8.5-10.1); Carbon Dioxide 24.2 meq/L (21.0-32.0); Potassium 4.5 meq/L (3.5-5.1)
--- NOTE | 2018-08-22 09:12 | P.PNIM ---
Subjective Interval history: Pt continues to complain of pain. Pt has been afebrile She is tolerating TF at goal rate, no further drainage from around GJ tube insertion site Pt still with some loose stools Physical Exam Vital signs: Vital Signs 08/21/18 12:00 08/21/18 16:00 08/21/18 20:00 Temperature 97.6 F 97.5 F L 97.7 F Pulse Rate 88 96 H 102 H Respiratory Rate 18 19 20 Blood Pressure 170/81 H 165/92 H 166/83 H Pulse Oximetry 93 L 100 100 08/22/18 00:00 08/22/18 08:00 Temperature 97.6 F 98.0 F Pulse Rate 86 103 H Respiratory Rate 20 17 Blood Pressure 164/84 H 183/90 H Pulse Oximetry 100 100 Intake & Output 08/21/18 08/22/18 08/22/18 18:59 06:59 18:59 Intake Total 1600 / 1600 1000 / 1000 Balance 1600 / 1600 1000 / 1000 Weight 61.7 kg Intake: IV 600 / 600 1000 / 1000 NS Inj 1,000 ML @ 75 mls/hr IV. 600 / 600 1000 / 1000 CONT .[id number] HITESH Rx#:[id number] Oral 1000 / 1000 Other: # Voids 5 4 Date of Last Bowel Movement 08/20/18 08/20/18 # Bowel Movements 0 Narrative: GENERAL: This is a 82 year old female, well-developed patient, in no apparent distress. CARDIO: Regular RESP: CTA bilaterally. ABD: +BS, soft, nontender, nondistended. GJ tube in place, no drainage or puss noted at the insertion site, mild skin irritation under the bumper EXT: No edema. Results - Labs CBC & Chem 7: 08/24/18 06:12 08/25/18 03:22 Laboratory Results - last 24 hr 08/21/18 08/21/18 08/22/18 09:23 09:23 05:26 WBC 32.0 H 23.6 H RBC 4.09 3.77 L Hgb 11.2 L 10.3 L Hct 34.6 L 32.9 L MCV 84.5 87.1 MCH 27.4 27.4 MCHC 32.4 31.4 L RDW 17.6 H 18.2 H Plt Count 199 D 177 MPV 7.7 8.3 Prelim Diff (Auto) Slide review pending Slide review pending Neut % (Auto) 96.7 H 96.1 H Lymph % (Auto) 1.2 L 2.6 L [place] % (Auto) 1.9 1.2 Eos % (Auto) 0.1 0.0 Baso % (Auto) 0.1 0.1 Neut # (Auto) 30.9 H 22.7 H Lymph # (Auto) 0.4 L 0.6 L [place] # (Auto) 0.6 0.3 Eos # (Auto) 0.0 0.0 Baso # (Auto) 0.0 0.0 WBC Differential Manual diff final Seg Neuts % (Manual) 90 H Band Neuts % (Manual) 7 H Lymphocytes % (Manual) 2 L Monocytes % (Manual) 1 Abs Neuts (Manual) 31.0 H Differential Comment . . Platelet Estimate Normal Platelet Morphology Normal RBC Morphology Normal Hematology Comments Sodium 140 Potassium 3.3 L Chloride 109 H Carbon Dioxide 25.4 Anion Gap 6 BUN 53 H Creatinine 2.52 H Estimated GFR 22 L Random Glucose 219 H Calcium 7.4 L* Prot Corrected Calcium 8.2 L Total Protein 5.6 L 08/22/18 05:26 WBC RBC Hgb Hct MCV MCH MCHC RDW Plt Count MPV Prelim Diff (Auto) Neut % (Auto) Lymph % (Auto) [place] % (Auto) Eos % (Auto) Baso % (Auto) Neut # (Auto) Lymph # (Auto) [place] # (Auto) Eos # (Auto) Baso # (Auto) WBC Differential Seg Neuts % (Manual) Band Neuts % (Manual) Lymphocytes % (Manual) Monocytes % (Manual) Abs Neuts (Manual) Differential Comment Platelet Estimate Platelet Morphology RBC Morphology Hematology Comments Sodium 145 Potassium 4.5 D Chloride 109 H Carbon Dioxide 24.2 Anion Gap 12 BUN 45 H Creatinine 2.38 H Estimated GFR 24 L Random Glucose 230 H Calcium 7.8 L Prot Corrected Calcium Total Protein - Imaging Abdomen/Pelvis CT 07/28/18 01:18 CONCLUSION: 1. Postoperative changes of biliary stent with biliary drainage catheter passing through the stent. Gastrojejunostomy tube again noted. 2. Mild stranding of fat around the pancreas could indicate a mild pancreatitis. 3. 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 GI Procedure 08/02/18 00:00 CONCLUSION: A biliary stent has been placed. It is in good position. There is good filling of the hepatic ducts. Tube Check 08/08/18 00:00 CONCLUSION: 1. Uncomplicated tube injection as above. The tube was not exchanged. Tube Check 08/19/18 00:00 CONCLUSION: 1. Uncomplicated tube injection as above. The tube is in good position. Leakage around the tube is secondary to the balloon having fallen away. The balloon was repositioned appropriately.. Assessment and Plan - Assessment (1) Idiopathic pancreatitis Code(s): K85.00 - Idiopathic acute pancreatitis without necrosis or infection Status: Acute Plan: Idiopathic pancreatitis - Patient is an 82 y/o AAF with recurrent idiopathic pancreatitis. She has been hospitalized numerous times for issues with pain control related to recurrent pancreatitis. Her last admission was from 07/13/18 to 07/26/18 due to [place], idiopathic pancreatitis and had her GJ tube exchanged 07/25/18. - Patient again presented to the ER last night due to worsening abd pain associated with nausea but no vomiting. Patient reports that she always had mild epigastric pain, but yesterday evening it again became more severe and is associated with nausea but not vomiting. Denies fever or chills, chest pain, cough, difficulty flushing J tube, or diarrhea. - On admission WBC 21.6, BUN 44, creatinine 2.60 and lipase 2673. - CT abd/pelvis was done and revealed: 1. Postoperative changes of biliary stent with biliary drainage catheter passing through the stent. Gastrojejunostomy tube again noted. 2. Mild stranding of fat around the pancreas could indicate a mild pancreatitis. 3. 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 - PO pain medication as needed - Appreciate input from GI. - Pt underwent repeat ERCP with stent exchange, 08/02/18 (ERCP and stent exchange cancelled on 08/01 as patient's daughter needed to talk with Dr. Ortega prior to signing consent.). According to the procedure report, the common bile duct had multiple filling defects which were able to be cleaned out and once cleaned he was able to clearly see the ingrowth into the old metal stent and so a 10 [place] 40 mm stent was placed within the first metal stent and it protruded about a centimeter into the duodenum with good drainage noted. The intrahepatics appeared to be unremarkable - Dietary recommended TF with Suplena with goal rate 40mls/hr, orders placed for this for discharge as pt was previously on Jevity but complained of diarrhea. - Pts lipase started to trend slightly up on 08/07 and 08/08 - lipase 2673 (07/28), 2471 (07/29), 758 (07/30), 215 (08/10), 155 (08/02), 730 (08/03 ), 509 (08/04), 423 (08/05), 708 (08/07), 768 (08/08), 596 (08/09), 459 (08/10/18), 271 (08/12) - On 08/07 the pts nurse reported that when flushing the J-tube that the water was coming up through the pts insertion site in the skin. - GJ tube reevaluated by Dr. Lala (08/08/18) G and J ports both patent. No findings of leakage from tube or through dermatotomy. Patient does appear to have some stasis of material in gastric lumen probably secondary to gastroparesis. Placed G-port to gravity drainage. - J-tube is reassessed by IR (08/13) and functional after flushing with warm water - Pts TF are were up to goal rate (40 mL/hr), but pt again began having drainage from the GJ tube insertion site. - TF stopped on 08/18/18. - IR was reconsulted on 08/18/18 to re-evaluate the GJ tube. The G tube was ordered to be placed to gravity drain which was not done. I contacted IR and they brought the pt down to inject the GJ tube and found the balloon had fallen away from the stomach wall. This was synched back down to the stomach wall. Zip tie applied to disk to help prevent this from recurring. - Pt was resumed on TF and currently tolerating goal rate of 40mL/hr - Continue clears - [place] prn - appreciate input from Palliative Medicine - Appreciate input from Dr. Stewart. - IV Solu-Medrol 60 mg IV Q6H (08/11 - 08/15) -> start to taper Solu-Medrol decreased to 60 mg IV Q12H (08/15). Pt tapered do Prednisone 20mg BID on 08/19/18 - ID consulted per pts daughter, Ms. Perez's request. - Per ID IMPRESSION: "Leukocytosis. This is probably reactive. White blood cell count is improving. The patient received Solu-Medrol, which may lead to even further increase in the white count, but her white count was elevated prior to the Solu-Medrol. The patient has a diagnosis of pancreatitis, which could also be contributing to the white blood cell count elevation as well." - SCDs for DVT prophylaxis - supportive care Oral Thrush - Continue nystatin swish and swallow for the thrush. - Give a 10-day course of Diflucan po through 08/22/18. Chronic kidney failure - Pt with baseline stage 3 CKD, pt follows with Dr. Melara - avoid nephrotoxic agents - Per RN several OTC Advil found hidden in a tissue box at patient's bedside. Discussed with patient and nurse that she should not be taking Advil given her renal function and should not be taking outside medications - Cr 3.37 (08/10), 3/48 (08/12), 3.46 (08/13), 3.39 (08/14), 3.30 (08/15), 3.23 (08/16 ), 3.21 (08/17), 2.83 (08/19) - continue IVFs - repeat BMP in AM Hypernatremia - resolved - sodium 151 (08/09), 147 (08/10), 145 (08/11), 136 (08/12), 137 (08/15), 136 (08/16) , 126 (08/17) - patient had not received free water flush due to concern regarding GJ tube Leukocytosis, persistent - [facility] Medical team has cared for Ms. Larsen for several years and many different admissions. - Pt tends to have marked persistent leukocytosis during her admissions which correlated to flares of her idiopathic pancreatitis - paradoxically, pt's leukocytosis has improved in the past, as well as her clinical condition with steroids - possibly d/t to a reactive process - Pt has had NO fever above 99.9F this entire admission - There is NO indication of infection. Pt has NO c/o cough, SOB, or dysuria. There is NO diarrhea. - appreciate input from Hematology, Dr. Perea. Leukocytosis is likely d/t Pancreatitis. - Pt/family request consultation from Infectious Disease, concerned that leukocytosis is d/t infection. - WBC 21.6 (07/28), 24.9 (07/29), 22.6 (07/30), 24 (07/31), 22.1 (08/02), 31.4 (08/03) , 29.2 (08/04), 23.5 (08/05), 34.9 (08/08), 33.0 (08/09), 40.6 (08/12), 38.1 (08/13), 26.7 (08/14), 18.1 (08/15), 18.5 (08/16), 29.2 (08/17), 24.0 (08/19), 32 (08/21), 23.8 (08/22) - I appreciate the input from ID, Dr. Chahal. - This may be a combination of inflammatory process and steroid. Infectious disease workup has been negative. - PO diflucan (completed on 08/22/18) and nystatin s/s HTN (hypertension) - Cont. home meds - Monitor GERD (gastroesophageal reflux disease) - PPI Hypomagnesemia - repleted Hypokalemia - resoved Anemia - d/t chronic disease, stable. - this diagnosis has been explored during prior hospitalizations and d/w Hematology - anemia felt to be d/t underlying disease processes - Hg 7.6 (08/13), 11.1 (08/14), 11.2 (08/15), 11.6 (08/16), 11.5 (08/17), 11.3 91/) , 11.2 (08/21), 10.3 (08/22) - Pt was transfused 2 units PRBCs on 08/13 - Attending Attestation Patient examined. Assessment and plan formulated with Guadalupe Monson PA-C. I agree with the above. (1) Idiopathic pancreatitis Qualifiers:
[2018-08-22 09:14] LABS: Lymphocytes 2 % (9-44); Metamyelocytes 1 % (0-1); Monocytes 1 % (0-8); Promyelocyte 1 % (0-0)
[2018-08-22 09:15] LABS: Platelet Estimate Normal (Normal); Platelet Morphology Normal (Normal)
[2018-08-22] MEDS: predniSONE 20 MG Tablet PO SCH ×2 (09:18→21:17)
[2018-08-22] MEDS: Lipase/Protease/Amylase 12/38/60 DR Capsule PO SCH ×3 (09:18→17:58)
[2018-08-22] MEDS: amLODIPine 5 MG Tablet PO SCH (09:18)
[2018-08-22] MEDS: Sucralfate 1 GM Tablet PO SCH ×3 (09:18→16:59)
[2018-08-22] MEDS: Metoprolol Tartrate 25 MG Tablet PO SCH ×2 (09:18→21:17)
[2018-08-22] MEDS: Sodium Chloride 0.9% 2 ML Flush BID IV.FLUSH SCH ×2 (10:55→21:18)
[2018-08-22] MEDS: Nystatin Liq 500,000 UNIT/5 ML UDC SWISH-SWAL SCH ×4 (10:59→21:17)
--- NOTE | 2018-08-22 12:07 | P.DIET ---
Nutritional Evaluation Type of nutrition evaluation: follow-up Nutrition consult regarding: Tube Feeding Nutrition screening: Weight Loss > 10 lbs Subjective Oral Diet Tolerance Assessment Indicates: Poor intake due to pain Subjective Comments: On 08/18 pt. had leakage around her GJ tube. IR found it was do to the balloon not holding tight to the stomach wall, this was fixed. Pt. is currently tolerating TFing of suplena at 40mls/hr. Pt. has tolerated some soup Objective - Diagnosis Recurrent Idiopathic Pancreatitis - Objective % IBW: 104 (FDR=[id number]#) Energy Needs - Lower Range (kCal/kg): 25 Energy Needs - Upper Range (kCal/kg): 30 Lower Limit kCal/kg (kCals): 1,535 Upper Limit kCal/kg (kCals): 1,842 Lower Limit Protein Factor (Grams per Kg): 0.6 Upper Limit Protein Factor (Grams per Kg): 1.0 Lower Protein Needs (Protein): 37 Upper Protein Needs (Protein): 61 Dietitian Reviewed in Medical Record: Current diet, Curent medications, Intake & Output, Labs, Medical history, Tube feeding Diet Order: TF'ing Suplena @ goal rate 40ml/hr and Full Liquid Tray Objective Comments: PMH Includes: Anxiety, CKD-3, GERD, HTN, Pancreatitis; G-J tube inplace 08/08/18 uncomplicated tube injection by IR 08/02/18 ERCP w/Stent removal, balloon extraction and metal stent placement; revealed choledolithiasis Labs: Creatinine 2.38, estGFR 15, Glucose 230 Meds Include: Creon, Norvasc, Cymbalta, Metoprolol, Zofran, Protonix, Free Water Flush 200ml Q 6-hr LBM 08/21 Feeding - Current Tube Feeding Tube Feeding Product: Suplena Tube Feeding Rate: 40 Tube Feeding Route: J/G tube Current kCals Provided by Tube Feedin,728 Current Protein Provided by Tube Feeding (gPRO): 43 Current Free H2O Provided (m/l): 708 Assessment Assessment: Pt continues at nutritional risk r/t diagnosis, wt loss and need for TF'ing. Pt. with BMs, some loose, +400mls of urine output documented on 08/19. Question accuracy of pts. documented wts., current wt. back to admission, monitor. Recommend current POC and TFing of Suplena @ 40mls/hr. with Full liquid diet. Continue to monitor TFing tolerance, PO intake, wt. and labs. Recommendations: 1. Recommend current POC and TFing of Suplena @ 40mls/hr. with Full liquid diet. 2. Continue to monitor TFing tolerance, PO intake, wt. and labs. Dietitian to Monitor: Lab values, Renal labs, Intake & Output, Diet tolerance, Tube feeding tolerance, Weight change, PO Intake, Medical course
[2018-08-22] MEDS: Fluconazole 100 MG Tablet PO SCH (16:59)
[2018-08-23] MEDS: Sod Chloride 0.9% Inj 1,000 ML IV.CONT SCH ×2 (03:18→16:42)
--- NOTE | 2018-08-23 07:39 | P.PNONC ---
Subjective Interval history: Patient feeling about the same. She still has abdominal pain 8 out of 10. She remains afebrile. She has no chest pain or shortness of breath. Objective Vital Signs/Intake & Output: Vital Signs 08/22/18 08:00 08/22/18 09:50 08/22/18 12:00 Temperature 98.0 F 97.5 F L Pulse Rate 103 H 74 Respiratory Rate 17 19 18 Blood Pressure 183/90 H 170/84 H Pulse Oximetry 100 100 08/22/18 16:00 08/22/18 17:57 08/22/18 20:00 Temperature 97.6 F 96.9 F L Pulse Rate 88 88 Respiratory Rate 16 16 17 Blood Pressure 155/81 H 158/84 H Pulse Oximetry 98 95 08/23/18 00:13 08/23/18 04:48 Temperature 96.2 F L 98.2 F Pulse Rate 89 88 Respiratory Rate 17 16 Blood Pressure 164/88 H 154/84 H Pulse Oximetry 97 99 Intake & Output 08/22/18 08/23/18 08/23/18 18:59 06:59 18:59 Intake Total 1320 / 1320 1189 / 1189 Output Total 1000 / 1000 Balance 1320 / 1320 189 / 189 Weight 62 kg Intake: IV 1000 / 1000 127 / 127 NS Inj 1,000 ML @ 75 mls/hr IV. 1000 / 1000 127 / 127 CONT .[id number] [facility] Rx#:[id number] Oral 320 / 320 360 / 360 Tube Feeding 302 / 302 Tube Irrigant 400 / 400 Output: Urine 1000 / 1000 Other: # Voids 2 # Bowel Movements 0 Result Diagrams: 08/22/18 05:26 08/22/18 05:26 Laboratory Results: Laboratory Results - last 24 hr 08/22/18 08/22/18 05:26 05:26 WBC Differential Manual diff final Seg Neuts % (Manual) 91 H Band Neuts % (Manual) 4 Lymphocytes % (Manual) 2 L Monocytes % (Manual) 1 Metamyelocytes % (Man) 1 Promyelocytes % (Man) 1 H Abs Neuts (Manual) 22.9 H Platelet Estimate Normal Platelet Morphology Normal Sodium 145 Potassium 4.5 D Chloride 109 H Carbon Dioxide 24.2 Anion Gap 12 BUN 45 H Creatinine 2.38 H Estimated GFR 24 L Random Glucose 230 H Calcium 7.8 L Medications: Active Medications Generic Name Dose Route Start Last Admin Trade Name Freq PRN Reason Stop Dose Admin Acetaminophen 650 mg 07/30/18 21:53 08/20/18 20:05 Tylenol PO 650 mg Q6H PRN Administration TEMPERATURE > 101 F Hydrocodone Bitart/Acetaminophen 1 tab 08/02/18 07:00 08/23/18 05:30 [place] 5/325 PO 1 tab Q4H PRN Administration FOR PAIN SCALE 2 TO 10 Amlodipine Besylate 5 mg 07/28/18 09:00 08/22/18 09:18 Norvasc PO 5 mg DAILY [facility] Administration Lipase/Protease/Amylase 1 cap 07/28/18 09:30 08/22/18 17:[address] PO 1 cap TIDPC [facility] Administration Calcium Carbonate 500 mg 08/14/18 21:00 08/22/18 21:17 Tums Chew CHEW 500 mg BID [facility] Administration Clonidine HCl 0.1 mg 08/18/18 16:08 08/22/18 09:19 Catapres PO 0.1 mg Q6H PRN Administration systolic BP over 170 Duloxetine HCl 20 mg 07/28/18 09:00 08/22/18 09:18 Cymbalta PO 20 mg DAILY [facility] Administration Sodium Chloride 1,000 mls @ 75 mls/hr 08/03/18 15:02 08/23/18 05:32 Ns Inj IV.CONT 75 mls/hr .[id number] [facility] Infusion Metoprolol Tartrate 25 mg 07/28/18 09:00 08/22/18 21:17 Lopressor PO 25 mg BID [facility] Administration Multi-Ingredient Ointment 1 applic 08/02/18 14:32 08/09/18 14:24 Blistex Lip [place] TOPICAL 1 applic Q1H PRN Administration DRY LIPS Nystatin 5 ml 08/13/18 18:00 08/22/18 21:17 Mycostatin Liq SWISH-SWAL 5 ml QID [facility] Administration Ondansetron HCl 4 mg 07/31/18 22:00 08/18/18 09:03 Zofran Inj IV.PUSH 4 mg Q4HR PRN Administration NAUSEA OR VOMITING Pantoprazole Sodium 40 mg 07/28/18 09:00 08/22/18 21:17 Protonix PO 40 mg BID [facility] Administration Prednisone 20 mg 08/19/18 21:00 08/22/18 21:17 Deltasone PO 20 mg BID [facility] Administration Sodium Chloride 2 ml 08/10/18 21:00 08/22/18 21:18 Ns Flush IV.FLUSH 2 ml BID [facility] Administration Sterile Water 200 ml 07/28/18 12:00 08/23/18 05:32 Free Water G-TUBE 200 ml Q6HR [facility] Administration Sucralfate 1 gm 07/28/18 09:00 08/22/18 16:59 Carafate PO 1 gm TID [facility] Administration Ursodiol 300 mg 07/28/18 09:00 08/22/18 21:17 Actigall PO 300 mg BID [facility] Administration Objective Remarks: GENERAL: Well-nourished, well-developed patient. Weak. SKIN: Warm and dry. HEAD: Normocephalic. EYES: No scleral icterus. No injection or drainage. NECK: Supple, trachea midline. No JVD or lymphadenopathy. LYMPHATIC: No adenopathy. CARDIOVASCULAR: Regular rate and rhythm without murmurs. RESPIRATORY: Breath sounds equal bilaterally. No accessory muscle use. GASTROINTESTINAL: Abdomen soft, tender in the upper abdomen. Positive bowel sounds. EXTREMITIES: No cyanosis, or edema. MUSCULOSKELETAL: Adequate muscle tone. NEUROLOGICAL: No obvious focal deficit. Awake, alert, and oriented x3. PSYCHIATRIC: Appropriate mood and affect; insight and judgment normal. Assessment/Plan (1) Idiopathic pancreatitis Code(s): K85.00 - Idiopathic acute pancreatitis without necrosis or infection Status: Acute (2) Anemia Code(s): D64.9 - Anemia, unspecified Status: Chronic (3) Leukocytosis Code(s): D72.829 - Elevated white blood cell count, unspecified Status: Acute - Plan 1. Chronic leukocytosis, most consistent with a leukemoid reaction. She has had fluctuating white blood cell counts for several years that usually coincide with a hospital admissions and exacerbation of pancreatitis. In February 2017, she had flow cytometry which did not show any abnormal immunophenotype and no evidence of leukemia. JAK2 mutation and FISH study for BCR-ABL at that time was also negative. During this hospital stay, her white blood cell count trended up from 21,000 to 35,000. There was also evidence of bandemia. I think this is most consistent with a reactive process. August 11, 2018. Sed rate and C-reactive protein both significantly elevated Consistent with inflammatory process. This is likely the reason for leukocytosis. I doubt that she has underlying bone marrow disorder. August 12, 2018. WBC trended up to 40.6. This may be due to the steroid which was started yesterday. August 15, 2018. Patient's abdominal pain slightly better since started on steroid. WBC has trended down to 26.7. She remains afebrile. Infectious disease is following. August 16, 2018. White blood cell count trended down to 18.8. She remains afebrile. It appears that she is responding to steroids with decreased inflammation. August 16, 2018. White blood cell count trended back up to 29.2. This may be demargination from steroid. She remains afebrile. August 22, 2018. WBC still fluctuating. It went down to 23,000 but trended back up to 32,000 yesterday. This may be a combination of inflammatory process and steroid. Infectious disease workup has been negative. August 23, 2018. WBC is back down to 23,000. Patient still on prednisone. 2. Chronic anemia, which is multifactorial due to chronic kidney disease as well as chronic inflammatory disease. Her hemoglobin trended down from 9.9 to 8.4 during this hospital stay. We will check iron studies and vitamin studies. Can consider giving her Epogen if her hemoglobin continues to trend down. She has no evidence of bleeding at this time. August 11, 2018. Iron study and vitamin study did not show any deficiency. The anemia is secondary to chronic kidney disease and chronic inflammatory disease. Her hemoglobin is stable. August 04, 2018. Hemoglobin stable at 7.7. No evidence of bleeding. August 15, 2018. She received 2 units of PRBC transfusion and hemoglobin up to 11.1. August 16, 2018. Hemoglobin remains stable at 11.2 since transfusion. August 22, 2018. Hemoglobin has been stable since transfusion. 3. Fluctuating thrombocytosis. She has mild thrombocytosis intermittently, again consistent with a reactive process. August 11, 2018. Thrombocytosis is secondary to reactive process. August 12, 2018. Platelet count trended back down to 423,000. August 17, 2018. Platelet count has trended back down to normal. 4. Recurrent pancreatitis. This has been going on for more than 5 years. She recently had an endoscopic retrograde cholangiopancreatography with biliary stent exchange. She is still on steroid and her pain is stable. RECOMMENDATIONS: 1. Continue to monitor CBC. 2. Consider repeating flow cytometry if WBC continues to trend up. (1) Idiopathic pancreatitis Qualifiers: (2) Anemia Qualifiers: Anemia type: unspecified type Qualified Code(s): D64.9 - Anemia, unspecified
[2018-08-23] MEDS: Nystatin Liq 500,000 UNIT/5 ML UDC SWISH-SWAL SCH ×3 (09:09→17:09)
[2018-08-23] MEDS: Sucralfate 1 GM Tablet PO SCH ×3 (09:09→17:10)
[2018-08-23] MEDS: predniSONE 20 MG Tablet PO SCH (09:11)
[2018-08-23] MEDS: amLODIPine 5 MG Tablet PO SCH (09:12)
[2018-08-23] MEDS: Metoprolol Tartrate 25 MG Tablet PO SCH ×2 (09:12→20:31)
[2018-08-23] MEDS: Sodium Chloride 0.9% 2 ML Flush BID IV.FLUSH SCH ×2 (09:16→20:31)
[2018-08-23] MEDS: Lipase/Protease/Amylase 12/38/60 DR Capsule PO SCH ×3 (09:18→18:03)
[2018-08-23 09:33] LABS: Calcium 7.8 mg/dL (8.5-10.1); Carbon Dioxide 23.2 meq/L (21.0-32.0); Potassium 5.3 meq/L (3.5-5.1)
[2018-08-23 11:05] LABS: Baso # (Auto) 0.2 th/mm3 (0.0-0.2); Baso % (Auto) 0.3 % (0.0-2.0); Hemoglobin 9.9 gm/dL (11.6-15.3); Lymph # (Auto) 0.6 th/mm3 (1.0-4.8); Lymph % (Auto) 1.3 % (9.0-44.0); Mean Corpuscular HGB Conc 32.1 % (32.0-36.0); Mean Corpuscular Hemoglobin 27.7 pg (27.0-34.0); Mean Corpuscular Volume 86.3 fL (80.0-100.0); Mean Platelet Volume 8.5 fL (7.0-11.0); Mono # (Auto) 0.4 th/mm3 (0.0-0.9); Mono % (Auto) 0.7 % (0.0-8.0); Neut % (Auto) 97.7 % (16.0-70.0); Platelet Count 190 th/mm3 (150-450); Red Blood Count 3.59 mil/mm3 (4.00-5.30); Red Cell Distribution Width 17.9 % (11.6-17.2); White Blood Count 49.2 th/mm3 (4.0-11.0)
[2018-08-23 12:19] LABS: Lymphocytes 4 % (9-44)
[2018-08-23 12:20] LABS: Platelet Estimate Normal (Normal); Platelet Morphology Normal (Normal); Toxic Vacuolation Present
--- NOTE | 2018-08-23 16:38 | P.PNPAL ---
Reason for Visit Reason for visit: a. To assist with evaluation and management of symptoms including: Pain, nausea , debility b. To assist medical decision maker(s) with: better understanding of current medical conditions; weighing benefits/burdens of medical treatment options; making medical treatment decisions. Subjective Subjective/Interval History: Follow-up medically necessary for symptom management. Patient awake in bed watching television. Patient endorsing abdominal pain. Pain level rated 8 out of 10. Pain currently managed with hydrocodone/acetaminophen 5/325 mg. He is required x5 prn doses in the past 24 hours. Discussed possibility of increasing pain medication and patient states that she does not want to feel sedated. Denies nausea at this time. Currently has tube feeds infusing at goal rate. Patient denies diarrhea. Laboratory workup 08/23/18 revealing increasing WBC 49.2, hemoglobin 9.9, hematocrit 31.0, platelet count 190, sodium 139, potassium 5.3, BUN/creatinine 47/2.31, random glucose 190, calcium 7.8. Hematology oncology Dr. Cristina following. Briefly discussed discharge plan, and patient insists that she wants to be discharged home with home health care. She further explains that her granddaughter will help her as well as other family members. Case discussed with employment case manager. Family/Friend Interactions: No family at bedside at time of visit. Advance Directives Health Care Surrogate: Completed, but not made available Durable Power of Air Conditioning Equipment Mechanic: Completed, but not made available Health Care Surrogate Name and Number: HCP: Raj Perez Objective Vital Signs: Vital Signs 08/22/18 17:57 08/22/18 20:00 08/23/18 00:13 Temperature 96.9 F L 96.2 F L Pulse Rate 88 89 Respiratory Rate 16 17 17 Blood Pressure 158/84 H 164/88 H Pulse Oximetry 95 97 08/23/18 04:48 08/23/18 07:52 08/23/18 08:00 Temperature 98.2 F 97.6 F Pulse Rate 88 90 Respiratory Rate 16 17 Blood Pressure 154/84 H 164/82 H 163/84 H Pulse Oximetry 99 99 08/23/18 10:23 08/23/18 12:00 08/23/18 12:30 Temperature 98.0 F 97.8 F Pulse Rate 87 85 Respiratory Rate 18 16 Blood Pressure 156/76 H 146/75 H Pulse Oximetry 99 100 Intake & Output 08/22/18 08/23/18 08/23/18 18:59 06:59 18:59 Intake Total 1320 / 1320 1189 / 1189 Output Total 1000 / 1000 Balance 1320 / 1320 189 / 189 Weight 62 kg Intake: IV 1000 / 1000 127 / 127 NS Inj 1,000 ML @ 75 mls/hr IV. 1000 / 1000 127 / 127 CONT .[id number] [facility] Rx#:[id number] Oral 320 / 320 360 / 360 Tube Feeding 302 / 302 Tube Irrigant 400 / 400 Output: Urine 1000 / 1000 Other: # Voids 2 # Bowel Movements 0 Physical Exam: CONSTITUTIONAL/GENERAL: This is a chronically ill looking patient, complaining of abdominal pain and nausea. TUBES/LINES/DRAINS: PIV, GJ tube SKIN: No jaundice, rashes, or lesions. Ecchymoses on upper extremities. No wounds seen anteriorly. Skin temperature appropriate. Not diaphoretic. EYES: PERRLA. No injection or drainage. Fundi not examined. ENT: Hearing grossly normal. No nasal bleeding or drainage. Moist oral mucosa CARDIOVASCULAR: Regular rate and rhythm without murmurs, gallops, or rubs. No JVD. Peripheral pulses symmetric. RESPIRATORY/CHEST: Symmetric, unlabored respirations. Lungs diminished in the bases. GASTROINTESTINAL: Abdomen soft, non-tender, nondistended. Guarding. No bowel sounds. MUSCULOSKELETAL: Extremities without clubbing, cyanosis, or edema. No mottling or clubbing. NEUROLOGICAL: Lethargic, oriented to self, place and situation. Follows commands. Moves all extremities. PSYCHIATRIC: No obvious anxiety/depression. no apparent hallucinations or other psychotic thought process. Diagnostic Tests Laboratory: Laboratory Results - last 72 hr 08/21/18 08/21/18 08/22/18 09:23 09:23 05:26 WBC 32.0 H 23.6 H RBC 4.09 3.77 L Hgb 11.2 L 10.3 L Hct 34.6 L 32.9 L MCV 84.5 87.1 MCH 27.4 27.4 MCHC 32.4 31.4 L RDW 17.6 H 18.2 H Plt Count 199 D 177 MPV 7.7 8.3 Prelim Diff (Auto) Slide review pending Slide review pending Neut % (Auto) 96.7 H 96.1 H Lymph % (Auto) 1.2 L 2.6 L Glenn % (Auto) 1.9 1.2 Eos % (Auto) 0.1 0.0 Baso % (Auto) 0.1 0.1 Neut # (Auto) 30.9 H 22.7 H Lymph # (Auto) 0.4 L 0.6 L Glenn # (Auto) 0.6 0.3 Eos # (Auto) 0.0 0.0 Baso # (Auto) 0.0 0.0 WBC Differential Manual diff final Manual diff final Seg Neuts % (Manual) 90 H 91 H Band Neuts % (Manual) 7 H 4 Lymphocytes % (Manual) 2 L 2 L Monocytes % (Manual) 1 1 Metamyelocytes % (Man) 1 Promyelocytes % (Man) 1 H Abs Neuts (Manual) 31.0 H 22.9 H Differential Comment . . Toxic Vacuolation Platelet Estimate Normal Normal Platelet Morphology Normal Normal RBC Morphology Normal Hematology Comments Sodium 140 Potassium 3.3 L Chloride 109 H Carbon Dioxide 25.4 Anion Gap 6 BUN 53 H Creatinine 2.52 H Estimated GFR 22 L Random Glucose 219 H Calcium 7.4 L* Prot Corrected Calcium 8.2 L Total Protein 5.6 L 08/22/18 08/23/18 08/23/18 05:26 06:44 10:26 WBC 49.2 H RBC 3.59 L Hgb 9.9 L Hct 31.0 L MCV 86.3 MCH 27.7 MCHC 32.1 RDW 17.9 H Plt Count 190 MPV 8.5 Prelim Diff (Auto) Slide review pending Neut % (Auto) 97.7 H Lymph % (Auto) 1.3 L Glenn % (Auto) 0.7 Eos % (Auto) 0.0 Baso % (Auto) 0.3 Neut # (Auto) 48.0 H Lymph # (Auto) 0.6 L Glenn # (Auto) 0.4 Eos # (Auto) 0.0 Baso # (Auto) 0.2 WBC Differential Manual diff final Seg Neuts % (Manual) 93 H Band Neuts % (Manual) 3 Lymphocytes % (Manual) 4 L Monocytes % (Manual) Metamyelocytes % (Man) Promyelocytes % (Man) Abs Neuts (Manual) 47.2 H Differential Comment . Toxic Vacuolation Present H Platelet Estimate Normal Platelet Morphology Normal RBC Morphology Hematology Comments Sodium 145 139 Potassium 4.5 D 5.3 H D Chloride 109 H 102 Carbon Dioxide 24.2 23.2 Anion Gap 12 14 BUN 45 H 47 H Creatinine 2.38 H 2.31 H Estimated GFR 24 L 25 L Random Glucose 230 H 190 H Calcium 7.8 L 7.8 L Prot Corrected Calcium Total Protein Result Diagrams: 08/23/18 10:26 08/23/18 06:44 Imaging: Abdomen/Pelvis CT 07/28/18 01:18 CONCLUSION: 1. Postoperative changes of biliary stent with biliary drainage catheter passing through the stent. Gastrojejunostomy tube again noted. 2. Mild stranding of fat around the pancreas could indicate a mild pancreatitis. 3. 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 GI Procedure 08/02/18 00:00 CONCLUSION: A biliary stent has been placed. It is in good position. There is good filling of the hepatic ducts. Tube Check 08/19/18 00:00 CONCLUSION: 1. Uncomplicated tube injection as above. The tube is in good position. Leakage around the tube is secondary to the balloon having fallen away. The balloon was repositioned appropriately.. Procedures: 08/02/18-ERCP with stent exchange 08/08/18-GJ tube check by interventional radiology 08/12/18-GJ tube check by interventional radiology 08/19/18-GJ tube check by interventional radiology Assessment and Plan - Disease Oriented Problem List (1) Leukocytosis (2) Hypernatremia (3) Hypokalemia (4) HTN (hypertension) (5) CKD (chronic kidney disease) (6) GERD (gastroesophageal reflux disease) (7) Anemia - Symptom Scale (1) Pain 0-10 Scale: 8 Comment: Complaining of abdominal pain. Patient unable to describe pain or rate pain at this time. (2) Nausea 0-10 Scale: Unable to quantify Comment: Patient complaining of nausea. (3) Debility 0-10 Scale: Unable to quantify Comment: Progressive. Pertinent Non-Medical Issues: Psychosocial: Patient is retired. She had 2 children and one of her children is . She lives with her daughter. Spiritual: Patient is Catholic Legal:Never completed advance directives. Ethical issues impacting care: None identified at this time Important Contacts: Daughter -Caitlyn Perez [phone] extension [phone] Granddaughter -Anita Albert [phone] Prognosis: Mrs Larsen is an 82-year-old female with a history significant for recurrent idiopathic pancreatitis, GERD, hypertension, anemia, chronic kidney disease and has a gastrojejunal tube. Patient has been hospitalized numerous times for issues regarding pain control related to recurrent pancreatitis. The last admission was from 06/291813/10/18 due to acute kidney injury, idiopathic pancreatitis and exchange of GJ tube on 07/25/18. Patient presented to the ER on 07/28/18 with complaints of worsening abdominal pain associated with nausea. Clinical course complicated with abdominal pain, persistent leukocytosis, elevated lipase and imaging consistent with acute pancreatitis. Given ongoing multiple comorbidities and multiple hospitalizations, patient remains at high risk for further complications, deterioration and decline. Code Status: Full Code Plan: PLAN: Legal decision maker: Patient is currently oriented to self, place and situation. Appears to be able to participate in medical decision making. According to [place] statute, in the event that patient is incapacitated, her only daughter Caitlyn Perez will serve as her healthcare proxy. Goals: Goals remain aggressive. Patient insists that she wants to be discharged home with home health care. She further explains that her granddaughter will help her as well as other family members. CODE STATUS: Full code SYMPTOMS: * Pain: Patient has history of idiopathic pancreatitis. Came in complaining with abdominal pain which appears to be chronic. Lipase is elevated. Patient is currently on hydrocodone/acetaminophen 5/325 every 4hrs prn. Patient required x5 prn doses of Hydrocodone/acetaminophen 5/325 in the past 24hrs. Patient currently c/o pain rated 8/10. Patient states that she does not want to feel sedated. Recommending increasing Hydrocodone to 7.5mg q 4 hrs prn. * Nausea: Patient has history of pancreatitis. She came in complaining with nausea. Patient is mostly fed via GJ tube. ERCP on 08/02 with stent replacement. Zofran 4mg prn IVP q 6 hrs for nausea available. Denying nausea. Last prn Zofran dose given on 08/18/18. * Debility: Patient has had multiple hospitalizations with complaints of abdominal pain. Patient ambulates with a walker at home. PT consulted, recommending PT at rehab. Patient is refusing to go to a snf facility for rehab, she would want to be discharged back home and his daughter who is here DPOA is supportive of her decision. Palliative care will continue to follow the patient during hospital course as condition evolves, to assist patient/decision-maker with understanding of their medical conditions, weighing benefits/burdens of treatment options, for clarification of goals of treatment. Additionally will assist with any symptoms of palliative concern Attestation Attestation: To help prompt me to consider important information that might be impacting today's encounter and assessment, information from prior notes written by myself or my colleagues may have been "brought forward" into today's note. My signature on this note, however, is an attestation that I personally performed the exam, history, and/or decision-making noted today, and, unless otherwise indicated, the interactions with patient, family, and staff as well as the review of records all occurred today. I also attest that the listed assessment and stated plan reflect my best clinical judgment today based on the combination of historical information, prior notes, and today's exam/ interactions. When time spent is documented, it refers only to time spent today by the signer, or if indicated, combined time spent today by collaborating physician/nurse practitioner.
--- NOTE | 2018-08-23 17:01 | P.PNIM ---
Subjective Interval history: No new complaints. Physical Exam Vital signs: 08/23/18 16:00 Temperature 98.5 F Pulse Rate 96 H Respiratory Rate 16 Blood Pressure 164/79 H Pulse Oximetry 99 Narrative: GENERAL: This is a 82 year old female, well-developed patient, in no apparent distress. CARDIO: Regular RESP: CTA bilaterally. ABD: +BS, soft, nontender, nondistended. GJ tube in place, no drainage or puss noted at the insertion site, mild skin irritation under the bumper EXT: No edema. Results - Labs CBC & Chem 7: 08/24/18 06:12 08/25/18 03:22 Assessment and Plan - Assessment (1) Idiopathic pancreatitis Code(s): K85.00 - Idiopathic acute pancreatitis without necrosis or infection Status: Acute Plan: Idiopathic pancreatitis - Patient is an 82 y/o AAF with recurrent idiopathic pancreatitis. She has been hospitalized numerous times for issues with pain control related to recurrent pancreatitis. Her last admission was from 07/13/18 to 07/26/18 due to WAYNE, idiopathic pancreatitis and had her GJ tube exchanged 07/25/18. - Patient again presented to the ER last night due to worsening abd pain associated with nausea but no vomiting. Patient reports that she always had mild epigastric pain, but yesterday evening it again became more severe and is associated with nausea but not vomiting. Denies fever or chills, chest pain, cough, difficulty flushing J tube, or diarrhea. - On admission WBC 21.6, BUN 44, creatinine 2.60 and lipase 2673. - CT abd/pelvis was done and revealed: 1. Postoperative changes of biliary stent with biliary drainage catheter passing through the stent. Gastrojejunostomy tube again noted. 2. Mild stranding of fat around the pancreas could indicate a mild pancreatitis. 3. 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 - PO pain medication as needed - Appreciate input from GI. - Pt underwent repeat ERCP with stent exchange, 08/02/18 (ERCP and stent exchange cancelled on 08/01 as patient's daughter needed to talk with Dr. Ortega prior to signing consent.). According to the procedure report, the common bile duct had multiple filling defects which were able to be cleaned out and once cleaned he was able to clearly see the ingrowth into the old metal stent and so a 10 Polish 40 mm stent was placed within the first metal stent and it protruded about a centimeter into the duodenum with good drainage noted. The intrahepatics appeared to be unremarkable - Dietary recommended TF with Suplena with goal rate 40mls/hr, orders placed for this for discharge as pt was previously on Jevity but complained of diarrhea. - Pts lipase started to trend slightly up on 08/07 and 08/08 - lipase 2673 (07/28), 2471 (07/29), 758 (07/30), 215 (08/10), 155 (08/02), 730 (08/03 ), 509 (08/04), 423 (08/05), 708 (08/07), 768 (08/08), 596 (08/09), 459 (08/10/18), 271 (08/12) - On 08/07 the pts nurse reported that when flushing the J-tube that the water was coming up through the pts insertion site in the skin. - GJ tube reevaluated by Dr. Lala (08/08/18) G and J ports both patent. No findings of leakage from tube or through dermatotomy. Patient does appear to have some stasis of material in gastric lumen probably secondary to gastroparesis. Placed G-port to gravity drainage. - J-tube is reassessed by IR (08/13) and functional after flushing with warm water - Pts TF are were up to goal rate (40 mL/hr), but pt again began having drainage from the GJ tube insertion site. - TF stopped on 08/18/18. - IR was reconsulted on 08/18/18 to re-evaluate the GJ tube. The G tube was ordered to be placed to gravity drain which was not done. I contacted IR and they brought the pt down to inject the GJ tube and found the balloon had fallen away from the stomach wall. This was synched back down to the stomach wall. Zip tie applied to disk to help prevent this from recurring. - Pt was resumed on TF and currently tolerating goal rate of 40mL/hr - Continue clears - [place] prn - appreciate input from Palliative Medicine - Appreciate input from Dr. Stewart. - IV Solu-Medrol 60 mg IV Q6H (08/11 - 08/15) -> start to taper Solu-Medrol decreased to 60 mg IV Q12H (08/15). Pt tapered do Prednisone 20mg BID on 08/19/18 - ID consulted per pts daughter, Ms. Perez's request. - Per ID IMPRESSION: "Leukocytosis. This is probably reactive. White blood cell count is improving. The patient received Solu-Medrol, which may lead to even further increase in the white count, but her white count was elevated prior to the Solu-Medrol. The patient has a diagnosis of pancreatitis, which could also be contributing to the white blood cell count elevation as well." - WBC 49.2 (08/23). NO fever - no stool today (08/23) - decrease prednisone to 20mg daily - Case d/w Hematology, Dr. Eliazar Cristina (08/23/18) - Will obtain repeat flow cytometry, by blood. - tender at LUQ and LLQ - obtain KUB - obtain lipase - SCDs for DVT prophylaxis - supportive care Oral Thrush - Continue nystatin swish and swallow for the thrush. - Give a 10-day course of Diflucan po through 08/22/18. Chronic kidney failure - Pt with baseline stage 3 CKD, pt follows with Dr. Melara - avoid nephrotoxic agents - Per RN several OTC Advil found hidden in a tissue box at patient's bedside. Discussed with patient and nurse that she should not be taking Advil given her renal function and should not be taking outside medications - Cr 3.37 (08/10), 3/48 (08/12), 3.46 (08/13), 3.39 (08/14), 3.30 (08/15), 3.23 (08/16 ), 3.21 (08/17), 2.83 (08/19) - continue IVFs - repeat BMP in AM Hypernatremia - resolved - sodium 151 (08/09), 147 (08/10), 145 (08/11), 136 (08/12), 137 (08/15), 136 (08/16) , 126 (08/17) - patient had not received free water flush due to concern regarding GJ tube Leukocytosis, persistent - [facility] Medical team has cared for Ms. Larsen for several years and many different admissions. - Pt tends to have marked persistent leukocytosis during her admissions which correlated to flares of her idiopathic pancreatitis - paradoxically, pt's leukocytosis has improved in the past, as well as her clinical condition with steroids - possibly d/t to a reactive process - Pt has had NO fever above 99.9F this entire admission - There is NO indication of infection. Pt has NO c/o cough, SOB, or dysuria. There is NO diarrhea. - appreciate input from Hematology, Dr. Perea. Leukocytosis is likely d/t Pancreatitis. - Pt/family request consultation from Infectious Disease, concerned that leukocytosis is d/t infection. - WBC 21.6 (07/28), 24.9 (07/29), 22.6 (07/30), 24 (07/31), 22.1 (08/02), 31.4 (08/03) , 29.2 (08/04), 23.5 (08/05), 34.9 (08/08), 33.0 (08/09), 40.6 (08/12), 38.1 (08/13), 26.7 (08/14), 18.1 (08/15), 18.5 (08/16), 29.2 (08/17), 24.0 (08/19), 32 (08/21), 23.8 (08/22) - I appreciate the input from ID, Dr. Chahal. - This may be a combination of inflammatory process and steroid. Infectious disease workup has been negative. - PO diflucan (completed on 08/22/18) and nystatin s/s HTN (hypertension) - needs improvement - stop norvasc - start procardia XL 30mg BID (08/23) - observe BP readings. GERD (gastroesophageal reflux disease) - PPI Hypomagnesemia - repleted Hypokalemia - resoved Anemia - d/t chronic disease, stable. - this diagnosis has been explored during prior hospitalizations and d/w Hematology - anemia felt to be d/t underlying disease processes - Hg 7.6 (08/13), 11.1 (08/14), 11.2 (08/15), 11.6 (08/16), 11.5 (08/17), 11.3 91/) , 11.2 (08/21), 10.3 (08/22) - Pt was transfused 2 units PRBCs on 08/13 (1) Idiopathic pancreatitis Qualifiers:
[2018-08-23] MEDS ORDERED: Sodium Polystyrene Sulfonate/Sorbitol Liq 15 GM/60 ML UDC PO ONE (17:15)
--- NOTE | 2018-08-23 17:50 | XR ---
EXAM DATE: 08/23/2018 12:00 AM EDT AGE/SEX: 82 years / Female INDICATIONS: Abdominal pain. CLINICAL DATA: This is the patient's subsequent encounter. Patient reports that signs and symptoms h ave been present for 3 days and indicates a pain score of 5/10. MEDICAL/SURGICAL HISTORY: . Chronic renal failure. Gastroesophageal reflux disease. Hypertensio n. Idiopathic Pancreatitis. Cholecystectomy. Biliary stent. Total knee replacement. . COMPARISON: [facility] [place] 1V KUB, 07/04/2018. . FINDINGS: The abdominal bowel gas pattern is normal. No abnormal masses, calcifications, or organomegaly is s een. GJ tube noted. Stent overlies the upper mid abdomen likely in common bile duct. Cholecystectomy clips. Clips overlie the left upper quadrant. The osseous structures are unremarkable. CONCLUSION: No acute abnormalities. Electronically signed by: Yunier Santana MD 08/23/2018 5:49 PM EDT
[2018-08-24] MEDS: Sod Chloride 0.9% Inj 1,000 ML IV.CONT SCH ×2 (05:56→18:50)
[2018-08-24 07:13] LABS: Baso % (Auto) 0.1 % (0.0-2.0); Eos # (Auto) 0.1 th/mm3 (0.0-0.4); Eos % (Auto) 0.2 % (0.0-4.0); Hematocrit 28.4 % (35.0-46.0); Hemoglobin 9.1 gm/dL (11.6-15.3); Lymph # (Auto) 1.5 th/mm3 (1.0-4.8); Lymph % (Auto) 3.7 % (9.0-44.0); Mean Corpuscular HGB Conc 31.9 % (32.0-36.0); Mean Corpuscular Hemoglobin 27.7 pg (27.0-34.0); Mean Platelet Volume 8.8 fL (7.0-11.0); Mono # (Auto) 0.8 th/mm3 (0.0-0.9); Mono % (Auto) 1.9 % (0.0-8.0); Neut # (Auto) 36.9 th/mm3 (1.8-7.7); Neut % (Auto) 94.1 % (16.0-70.0); Platelet Count 144 th/mm3 (150-450); Red Blood Count 3.27 mil/mm3 (4.00-5.30); Red Cell Distribution Width 18.3 % (11.6-17.2); White Blood Count 39.3 th/mm3 (4.0-11.0)
[2018-08-24 07:56] LABS: Calcium 7.1 mg/dL (8.5-10.1); Potassium 3.4 meq/L (3.5-5.1)
--- NOTE | 2018-08-24 08:12 | P.PNONC ---
Subjective Interval history: Patient is feeling better. Rated abdominal pain is around 7 out of 10. She is able to eat small amount of food. She remains afebrile. However blood cell count trended up to 49,000 yesterday. Objective Vital Signs/Intake & Output: Vital Signs 08/23/18 10:23 08/23/18 12:00 08/23/18 12:30 Temperature 98.0 F 97.8 F Pulse Rate 87 85 Respiratory Rate 18 16 Blood Pressure 156/76 H 146/75 H Pulse Oximetry 99 100 08/23/18 14:19 08/23/18 16:00 08/23/18 18:33 Temperature 98.5 F Pulse Rate 96 H Respiratory Rate 18 16 17 Blood Pressure 164/79 H Pulse Oximetry 99 08/24/18 00:31 Temperature 98.3 F Pulse Rate 87 Respiratory Rate 18 Blood Pressure 155/73 H Pulse Oximetry 100 Intake & Output 08/23/18 08/24/18 08/24/18 18:59 06:59 18:59 Intake Total 1478 / 1478 1872 / 1872 120 / 120 Balance 1478 / 1478 1872 / 1872 120 / 120 Weight 61 kg Intake: IV 1000 / 1000 1000 / 1000 NS Inj 1,000 ML @ 75 mls/hr IV. 1000 / 1000 1000 / 1000 CONT .[id number] [facility] Rx#:[id number] Oral 478 / 478 120 / 120 120 / 120 Tube Feeding 352 / 352 Tube Irrigant 400 / 400 Other: # Voids 4 4 1 Date of Last Bowel Movement 08/23/18 # Bowel Movements 2 Result Diagrams: 08/23/18 10:26 08/24/18 06:12 Laboratory Results: Laboratory Results - last 24 hr 08/23/18 08/23/18 08/24/18 06:44 10:26 06:12 WBC 49.2 H RBC 3.59 L Hgb 9.9 L Hct 31.0 L MCV 86.3 MCH 27.7 MCHC 32.1 RDW 17.9 H Plt Count 190 MPV 8.5 Prelim Diff (Auto) Slide review pending Neut % (Auto) 97.7 H Lymph % (Auto) 1.3 L [place] % (Auto) 0.7 Eos % (Auto) 0.0 Baso % (Auto) 0.3 Neut # (Auto) 48.0 H Lymph # (Auto) 0.6 L [place] # (Auto) 0.4 Eos # (Auto) 0.0 Baso # (Auto) 0.2 WBC Differential Manual diff final Seg Neuts % (Manual) 93 H Band Neuts % (Manual) 3 Lymphocytes % (Manual) 4 L Abs Neuts (Manual) 47.2 H Differential Comment . Toxic Vacuolation Present H Platelet Estimate Normal Platelet Morphology Normal Sodium 139 142 Potassium 5.3 H D 3.4 L D Chloride 102 104 Carbon Dioxide 23.2 24.0 Anion Gap 14 14 BUN 47 H 34 H Creatinine 2.31 H 2.15 H Estimated GFR 25 L 27 L Random Glucose 190 H 136 H Calcium 7.8 L 7.1 L* Lipase 102 Imaging Studies: Impressions Abdomen X-Ray 08/23/18 00:00 CONCLUSION: No acute abnormalities. Medications: Active Medications Generic Name Dose Route Start Last Admin Trade Name Freq PRN Reason Stop Dose Admin Acetaminophen 650 mg 07/30/18 21:53 08/20/18 20:05 Tylenol PO 650 mg Q6H PRN Administration TEMPERATURE > 101 F Hydrocodone Bitart/Acetaminophen 1 tab 08/02/18 07:00 08/24/18 04:16 [place] 5/325 PO 1 tab Q4H PRN Administration FOR PAIN SCALE 2 TO 10 Lipase/Protease/Amylase 1 cap 07/28/18 09:30 08/23/18 18:03 Mando Kapoor PO 1 cap TIDPC HITESH Administration Calcium Carbonate 500 mg 08/14/18 21:00 08/23/18 20:31 Tums Chew CHEW 500 mg BID HITESH Administration Clonidine HCl 0.1 mg 08/18/18 16:08 08/22/18 09:19 Catapres PO 0.1 mg Q6H PRN Administration systolic BP over 170 Duloxetine HCl 20 mg 07/28/18 09:00 08/23/18 09:10 Cymbalta PO 20 mg DAILY HITESH Administration Sodium Chloride 1,000 mls @ 75 mls/hr 08/03/18 15:02 08/24/18 05:56 Ns Inj IV.CONT 75 mls/hr .[id number] HITESH Administration Metoprolol Tartrate 25 mg 07/28/18 09:00 08/23/18 20:31 Lopressor PO 25 mg BID HITESH Administration Multi-Ingredient Ointment 1 applic 08/02/18 14:32 08/09/18 14:24 Blistex Lip [place] TOPICAL 1 applic Q1H PRN Administration DRY LIPS Nifedipine 30 mg 08/23/18 21:00 08/23/18 20:31 Procardia Xl PO 30 mg BID HITESH Administration Ondansetron HCl 4 mg 07/31/18 22:00 08/18/18 09:03 Zofran Inj IV.PUSH 4 mg Q4HR PRN Administration NAUSEA OR VOMITING Pantoprazole Sodium 40 mg 07/28/18 09:00 08/23/18 20:31 Protonix PO 40 mg BID HITESH Administration Sodium Chloride 2 ml 08/10/18 21:00 08/23/18 20:31 Ns Flush IV.FLUSH 2 ml BID HITESH Administration Sterile Water 200 ml 07/28/18 12:00 08/24/18 05:57 Free Water G-TUBE 200 ml Q6HR HITESH Administration Sucralfate 1 gm 07/28/18 09:00 08/23/18 17:10 Carafate PO 1 gm TID HITESH Administration Ursodiol 300 mg 07/28/18 09:00 08/23/18 20:31 Actigall PO 300 mg BID HITESH Administration Objective Remarks: GENERAL: Well-nourished, well-developed patient. Weak. SKIN: Warm and dry. HEAD: Normocephalic. EYES: No scleral icterus. No injection or drainage. NECK: Supple, trachea midline. No JVD or lymphadenopathy. LYMPHATIC: No adenopathy. CARDIOVASCULAR: Regular rate and rhythm without murmurs. RESPIRATORY: Breath sounds equal bilaterally. No accessory muscle use. GASTROINTESTINAL: Abdomen soft, tender in the mid abdomen but not distended. EXTREMITIES: No cyanosis, or edema. MUSCULOSKELETAL: Adequate muscle tone. NEUROLOGICAL: No obvious focal deficit. Awake, alert, and oriented x3. PSYCHIATRIC: Appropriate mood and affect; insight and judgment normal. Assessment/Plan (1) Idiopathic pancreatitis Code(s): K85.00 - Idiopathic acute pancreatitis without necrosis or infection Status: Acute (2) Anemia Code(s): D64.9 - Anemia, unspecified Status: Chronic (3) Leukocytosis Code(s): D72.829 - Elevated white blood cell count, unspecified Status: Acute - Plan 1. Chronic leukocytosis, most consistent with a leukemoid reaction. She has had fluctuating white blood cell counts for several years that usually coincide with a hospital admissions and exacerbation of pancreatitis. In February 2017, she had flow cytometry which did not show any abnormal immunophenotype and no evidence of leukemia. JAK2 mutation and FISH study for BCR-ABL at that time was also negative. During this hospital stay, her white blood cell count trended up from 21,000 to 35,000. There was also evidence of bandemia. I think this is most consistent with a reactive process. August 11, 2018. Sed rate and C-reactive protein both significantly elevated Consistent with inflammatory process. This is likely the reason for leukocytosis. I doubt that she has underlying bone marrow disorder. August 12, 2018. WBC trended up to 40.6. This may be due to the steroid which was started yesterday. August 15, 2018. Patient's abdominal pain slightly better since started on steroid. WBC has trended down to 26.7. She remains afebrile. Infectious disease is following. August 16, 2018. White blood cell count trended down to 18.8. She remains afebrile. It appears that she is responding to steroids with decreased inflammation. August 16, 2018. White blood cell count trended back up to 29.2. This may be demargination from steroid. She remains afebrile. August 22, 2018. WBC still fluctuating. It went down to 23,000 but trended back up to 32,000 yesterday. This may be a combination of inflammatory process and steroid. Infectious disease workup has been negative. August 23, 2018. WBC is back down to 23,000. Patient still on prednisone. August 24, 2018. WBC trended up to 49,000. Discussed with Dr. Eddy and flow cytometry was sent. 2. Chronic anemia, which is multifactorial due to chronic kidney disease as well as chronic inflammatory disease. Her hemoglobin trended down from 9.9 to 8.4 during this hospital stay. We will check iron studies and vitamin studies. Can consider giving her Epogen if her hemoglobin continues to trend down. She has no evidence of bleeding at this time. August 11, 2018. Iron study and vitamin study did not show any deficiency. The anemia is secondary to chronic kidney disease and chronic inflammatory disease. Her hemoglobin is stable. August 04, 2018. Hemoglobin stable at 7.7. No evidence of bleeding. August 15, 2018. She received 2 units of PRBC transfusion and hemoglobin up to 11.1. August 16, 2018. Hemoglobin remains stable at 11.2 since transfusion. August 22, 2018. Hemoglobin has been stable since transfusion. 3. Fluctuating thrombocytosis. She has mild thrombocytosis intermittently, again consistent with a reactive process. August 11, 2018. Thrombocytosis is secondary to reactive process. August 12, 2018. Platelet count trended back down to 423,000. August 17, 2018. Platelet count has trended back down to normal. 4. Recurrent pancreatitis. This has been going on for more than 5 years. She recently had an endoscopic retrograde cholangiopancreatography with biliary stent exchange. She is still on steroid and her pain is stable. RECOMMENDATIONS: 1. Continue to monitor CBC. 2. Follow flow cytometry result. 3. Discussed with Dr. Eddy. (1) Idiopathic pancreatitis Qualifiers: (2) Anemia Qualifiers: Anemia type: unspecified type Qualified Code(s): D64.9 - Anemia, unspecified
[2018-08-24] MEDS: predniSONE 20 MG Tablet PO SCH (08:20)
[2018-08-24] MEDS: Sucralfate 1 GM Tablet PO SCH ×3 (08:20→17:41)
[2018-08-24] MEDS: Metoprolol Tartrate 25 MG Tablet PO SCH ×2 (08:21→21:01)
[2018-08-24] MEDS: Sodium Chloride 0.9% 2 ML Flush BID IV.FLUSH SCH ×2 (08:24→21:01)
[2018-08-24 09:09] LABS: Magnesium 1.6 mg/dL (1.5-2.5); Total Protein 5.4 g/dL (6.4-8.2)
[2018-08-24] MEDS: Lipase/Protease/Amylase 12/38/60 DR Capsule PO SCH ×3 (09:28→17:42)
[2018-08-24 11:49] LABS: Eosinophils 1 % (0-4); Lymphocytes 5 % (9-44); Metamyelocytes 1 % (0-1); Monocytes 2 % (0-8); Platelet Morphology Normal (Normal); Tallied Nucleated RBC 1 (0-0); Toxic Vacuolation Present
--- NOTE | 2018-08-24 14:46 | P.PNIM ---
Subjective Interval history: No new complaints. Pt appeared comfortable at the time of my visit. Case d/w pt's nurse. Pt remains dependent and require much support for basic ADLs. Physical Exam Vital signs: 08/24/18 08:00 08/24/18 08:49 08/24/18 12:00 Temperature 98.2 F 98.4 F Pulse Rate 102 H 88 Respiratory Rate 17 17 17 Blood Pressure 133/75 138/80 Pulse Oximetry 100 99 Narrative: GENERAL: This is a 82 year old female, well-developed patient, in no apparent distress. CARDIO: Regular RESP: CTA bilaterally. ABD: +BS, soft, nontender, nondistended. GJ tube in place, no drainage or discharge noted at the insertion site EXT: No edema. Results - Labs CBC & Chem 7: 08/24/18 06:12 08/24/18 06:12 - Imaging Abdomen X-Ray 08/23/18 00:00 No acute abnormalities. Assessment and Plan - Assessment (1) Idiopathic pancreatitis Code(s): K85.00 - Idiopathic acute pancreatitis without necrosis or infection Status: Acute Plan: Idiopathic pancreatitis - Patient is an 82 y/o AAF with recurrent idiopathic pancreatitis. She has been hospitalized numerous times for issues with pain control related to recurrent pancreatitis. Her last admission was from 07/13/18 to 07/26/18 due to WAYNE, idiopathic pancreatitis and had her GJ tube exchanged 07/25/18. - Patient again presented to the ER last night due to worsening abd pain associated with nausea but no vomiting. Patient reports that she always had mild epigastric pain, but yesterday evening it again became more severe and is associated with nausea but not vomiting. Denies fever or chills, chest pain, cough, difficulty flushing J tube, or diarrhea. - On admission WBC 21.6, BUN 44, creatinine 2.60 and lipase 2673. - CT abd/pelvis was done and revealed: 1. Postoperative changes of biliary stent with biliary drainage catheter passing through the stent. Gastrojejunostomy tube again noted. 2. Mild stranding of fat around the pancreas could indicate a mild pancreatitis. 3. 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 - PO pain medication as needed - Appreciate input from GI. - Pt underwent repeat ERCP with stent exchange, 08/02/18 (ERCP and stent exchange cancelled on 08/01 as patient's daughter needed to talk with Dr. Ortega prior to signing consent.). According to the procedure report, the common bile duct had multiple filling defects which were able to be cleaned out and once cleaned he was able to clearly see the ingrowth into the old metal stent and so a 10 Ma[place] 40 mm stent was placed within the first metal stent and it protruded about a centimeter into the duodenum with good drainage noted. The intrahepatics appeared to be unremarkable - Dietary recommended TF with Suplena with goal rate 40mls/hr, orders placed for this for discharge as pt was previously on Jevity but complained of diarrhea. - Pts lipase started to trend slightly up on 08/07 and 08/08 - lipase 2673 (07/28), 2471 (07/29), 758 (07/30), 215 (08/10), 155 (08/02), 730 (08/03 ), 509 (08/04), 423 (08/05), 708 (08/07), 768 (08/08), 596 (08/09), 459 (08/10/18), 271 (08/12), 102 (08/24) - On 08/07 the pts nurse reported that when flushing the J-tube that the water was coming up through the pts insertion site in the skin. - GJ tube reevaluated by Dr. Lala (08/08/18) G and J ports both patent. No findings of leakage from tube or through dermatotomy. Patient does appear to have some stasis of material in gastric lumen probably secondary to gastroparesis. Placed G-port to gravity drainage. - J-tube is reassessed by IR (08/13) and functional after flushing with warm water - Pts TF are were up to goal rate (40 mL/hr), but pt again began having drainage from the GJ tube insertion site. - TF stopped on 08/18/18. - IR was reconsulted on 08/18/18 to re-evaluate the GJ tube. The G tube was ordered to be placed to gravity drain which was not done. I contacted IR and they brought the pt down to inject the GJ tube and found the balloon had fallen away from the stomach wall. This was synched back down to the stomach wall. Zip tie applied to disk to help prevent this from recurring. - Pt was resumed on TF and currently tolerating goal rate of 40mL/hr - Continue clears - [place] prn - appreciate input from Palliative Medicine - Appreciate input from Dr. Stewart. - IV Solu-Medrol 60 mg IV Q6H (08/11 - 08/15) -> start to taper Solu-Medrol decreased to 60 mg IV Q12H (08/15). Pt tapered do Prednisone 20mg BID on 08/19/18 - ID consulted per pts daughter, Ms. Perez's request. - Per ID IMPRESSION: "Leukocytosis. This is probably reactive. White blood cell count is improving. The patient received Solu-Medrol, which may lead to even further increase in the white count, but her white count was elevated prior to the Solu-Medrol. The patient has a diagnosis of pancreatitis, which could also be contributing to the white blood cell count elevation as well." - WBC 49.2 (08/23). NO fever - no stool today (08/23) - decrease prednisone to 20mg daily - Case d/w Hematology, Dr. Eliazar Cristina (08/23/18) - obtain repeat flow cytometry --> pending - KUB (08/23) --> no acute findings - physical exam unremarkable - pt appears comfortable - Pt requires much assistance with ADLs - discharge to home would NOT be optimal. Pt's daughter works time clock mechanic. - discharge to SNF would be appropriate, but pt has been refusing. - at this time, I see NO medical indication for continued hospitalization - Pt's leukocytosis does NOT correlate with infection. Please consultation notes from Infectious Disease, Hematology, and GI agreeing with this assessment. - repeat lipase WNL - flow cytometry pending. Pt can f/u with Hematology outpt - Pt is appropriate for discharge. - If pt remains stable, I will discharge to SNF 08/25/18 - Case d/w [facility] Case Management, Myrtle Sanchez. I explained that pt will be ready for discharge. - Per Ms. Sanchez, pt/family adamantly do NOT want SNF. - I disagree with this decision, but I will respect their wishes & arrange for [facility] and home PT. - I discussed possibility of SNF with pt's daughter, Ms. Caitlyn Perez, by phone (08/24/18). Ms. Perez understands that we will likely discharge tomorrow. Ms. Perez is still leaning toward home with C and home PT. I answered all of Ms. Perez's questions to the best of my ability. - SCDs for DVT prophylaxis - supportive care Oral Thrush - resolved - nystatin swish and swallow completed - Give a 10-day course of Diflucan po through 08/22/18. Chronic kidney failure - improved - Pt with baseline stage 3 CKD, pt follows with Dr. Melara - avoid nephrotoxic agents - Per RN several OTC Advil found hidden in a tissue box at patient's bedside. Discussed with patient and nurse that she should not be taking Advil given her renal function and should not be taking outside medications - Cr 3.37 (08/10), 3/48 (08/12), 3.46 (08/13), 3.39 (08/14), 3.30 (08/15), 3.23 (08/16 ), 3.21 (08/17), 2.83 (08/19), 2.15 (08/24) - Hypernatremia - resolved - sodium 151 (08/09), 147 (08/10), 145 (08/11), 136 (08/12), 137 (08/15), 136 (08/16) , 126 (08/17) - patient had not received free water flush due to concern regarding GJ tube Leukocytosis, persistent - [facility] Medical team has cared for Ms. Larsen for several years and many different admissions. - Pt tends to have marked persistent leukocytosis during her admissions which correlated to flares of her idiopathic pancreatitis - paradoxically, pt's leukocytosis has improved in the past, as well as her clinical condition with steroids - possibly d/t to a reactive process - Pt has had NO fever above 99.9F this entire admission - There is NO indication of infection. Pt has NO c/o cough, SOB, or dysuria. There is NO diarrhea. - appreciate input from Hematology, Dr. Perea. Leukocytosis is likely d/t Pancreatitis. - Pt/family request consultation from Infectious Disease, concerned that leukocytosis is d/t infection. - WBC 21.6 (07/28), 24.9 (07/29), 22.6 (07/30), 24 (07/31), 22.1 (08/02), 31.4 (08/03) , 29.2 (08/04), 23.5 (08/05), 34.9 (08/08), 33.0 (08/09), 40.6 (08/12), 38.1 (08/13), 26.7 (08/14), 18.1 (08/15), 18.5 (08/16), 29.2 (08/17), 24.0 (08/19), 32 (08/21), 23.8 (08/22) - I appreciate the input from ID, Dr. Chahal. - This may be a combination of inflammatory process and steroid. Infectious disease workup has been negative. - PO diflucan (completed on 08/22/18) and nystatin s/s completed - see above HTN (hypertension) - needs improvement - stop norvasc - procardia XL 30mg BID (08/23) GERD (gastroesophageal reflux disease) - PPI Hypomagnesemia - repleted Hypokalemia - resoved Anemia - d/t chronic disease, stable. - this diagnosis has been explored during prior hospitalizations and d/w Hematology - anemia felt to be d/t underlying disease processes - Hg 7.6 (08/13), 11.1 (08/14), 11.2 (08/15), 11.6 (08/16), 11.5 (08/17), 11.3 91/) , 11.2 (08/21), 10.3 (08/22) - Pt was transfused 2 units PRBCs on 08/13 (1) Idiopathic pancreatitis Qualifiers:
[2018-08-25 05:24] LABS: Calcium 7.2 mg/dL (8.5-10.1); Carbon Dioxide 24.7 meq/L (21.0-32.0); Potassium 3.4 meq/L (3.5-5.1)
[2018-08-25 05:39] LABS: Total Protein 5.4 g/dL (6.4-8.2)
--- NOTE | 2018-08-25 07:17 | P.PNONC ---
Subjective Interval history: Patient complaining of more abdominal pain this morning. She has no chest pain no shortness of breath. She remains afebrile. She is more uncomfortable this morning. Objective Vital Signs/Intake & Output: Vital Signs 08/24/18 08:00 08/24/18 08:49 08/24/18 12:00 Temperature 98.2 F 98.4 F Pulse Rate 102 H 88 Respiratory Rate 17 17 17 Blood Pressure 133/75 138/80 Pulse Oximetry 100 99 08/24/18 12:49 08/24/18 16:00 08/24/18 20:00 Temperature 98.3 F 98.2 F Pulse Rate 96 H 115 H Respiratory Rate 17 17 17 Blood Pressure 143/77 H 138/84 Pulse Oximetry 97 99 08/25/18 00:00 Temperature 98.1 F Pulse Rate 116 H Respiratory Rate 17 Blood Pressure 162/92 H Pulse Oximetry 98 Intake & Output 08/24/18 08/25/18 08/25/18 18:59 06:59 18:59 Intake Total 2641 / 2641 600 / 600 Balance 2641 / 2641 600 / 600 Weight 61.7 kg Intake: IV 1951 NS Inj 1,000 ML @ 75 mls/hr IV. 1950 CONT .[id number] [facility] Rx#:[id number] Oral 240 / 240 600 / 600 Tube Feeding 449 / 449 Other: # Voids 2 2 Date of Last Bowel Movement 08/23/18 08/24/18 Result Diagrams: 08/24/18 06:12 08/25/18 03:22 Laboratory Results: Laboratory Results - last 24 hr 08/24/18 08/24/18 08/25/18 06:12 06:12 03:22 WBC 39.3 H RBC 3.27 L Hgb 9.1 L Hct 28.4 L MCV 87.0 MCH 27.7 MCHC 31.9 L RDW 18.3 H Plt Count 144 L MPV 8.8 Prelim Diff (Auto) Slide review pending Neut % (Auto) 94.1 H Lymph % (Auto) 3.7 L [place] % (Auto) 1.9 Eos % (Auto) 0.2 Baso % (Auto) 0.1 Neut # (Auto) 36.9 H Lymph # (Auto) 1.5 [place] # (Auto) 0.8 Eos # (Auto) 0.1 Baso # (Auto) 0.0 WBC Differential Manual diff final Seg Neuts % (Manual) 90 H Band Neuts % (Manual) 2 Lymphocytes % (Manual) 5 L Monocytes % (Manual) 2 Eosinophils % (Manual) 1 Metamyelocytes % (Man) 1 Abs Neuts (Manual) 36.5 H Nucleated RBCs/100 WBC 1 H Differential Comment . Toxic Vacuolation Present H Platelet Estimate Low L Platelet Morphology Normal Sodium 142 143 Potassium 3.4 L D 3.4 L Chloride 104 104 Carbon Dioxide 24.0 24.7 Anion Gap 14 14 BUN 34 H 36 H Creatinine 2.15 H 2.18 H Estimated GFR 27 L 26 L Random Glucose 136 H 134 H Calcium 7.1 L* 7.2 L* Prot Corrected Calcium 8.0 L 8.1 L Magnesium 1.6 Total Protein 5.4 L 5.4 L Lipase 102 Medications: Active Medications Generic Name Dose Route Start Last Admin Trade Name Freq PRN Reason Stop Dose Admin Acetaminophen 650 mg 07/30/18 21:53 08/20/18 20:05 Tylenol PO 650 mg Q6H PRN Administration TEMPERATURE > 101 F Hydrocodone Bitart/Acetaminophen 1 tab 08/02/18 07:00 08/25/18 03:19 [place] 5/325 PO 1 tab Q4H PRN Administration FOR PAIN SCALE 2 TO 10 Lipase/Protease/Amylase 1 cap 07/28/18 09:30 08/24/18 17:[address] PO Not Given TIDPC HITESH Calcium Carbonate 500 mg 08/14/18 21:00 08/24/18 21:01 Tums Chew CHEW 500 mg BID HITESH Administration Clonidine HCl 0.1 mg 08/18/18 16:08 08/22/18 09:19 Catapres PO 0.1 mg Q6H PRN Administration systolic BP over 170 Duloxetine HCl 20 mg 07/28/18 09:00 08/24/18 08:20 Cymbalta PO 20 mg DAILY HITESH Administration Sodium Chloride 1,000 mls @ 75 mls/hr 08/03/18 15:02 08/24/18 18:50 Ns Inj IV.CONT 75 mls/hr .[id number] HITESH Administration Metoprolol Tartrate 25 mg 07/28/18 09:00 08/24/18 21:01 Lopressor PO 25 mg BID HITESH Administration Multi-Ingredient Ointment 1 applic 08/02/18 14:32 08/09/18 14:24 Blistex Lip [place] TOPICAL 1 applic Q1H PRN Administration DRY LIPS Nifedipine 30 mg 08/23/18 21:00 08/24/18 21:00 Procardia Xl PO 30 mg BID HITESH Administration Ondansetron HCl 4 mg 07/31/18 22:00 08/18/18 09:03 Zofran Inj IV.PUSH 4 mg Q4HR PRN Administration NAUSEA OR VOMITING Pantoprazole Sodium 40 mg 07/28/18 09:00 08/24/18 21:01 Protonix PO 40 mg BID HITESH Administration Prednisone 20 mg 08/24/18 09:00 08/24/18 08:20 Deltasone PO 20 mg DAILY HITESH Administration Sodium Chloride 2 ml 08/10/18 21:00 08/24/18 21:01 Ns Flush IV.FLUSH Not Given BID HITESH Sterile Water 200 ml 07/28/18 12:00 08/25/18 05:07 Free Water G-TUBE 200 ml Q6HR HITESH Administration Sucralfate 1 gm 07/28/18 09:00 08/24/18 17:41 Carafate PO Not Given TID HITESH Ursodiol 300 mg 07/28/18 09:00 08/24/18 21:01 Actigall PO 300 mg BID HITESH Administration Objective Remarks: GENERAL: Well-nourished, well-developed patient. SKIN: Warm and dry. HEAD: Normocephalic. EYES: No scleral icterus. No injection or drainage. NECK: Supple, trachea midline. No JVD or lymphadenopathy. LYMPHATIC: No adenopathy. CARDIOVASCULAR: Regular rate and rhythm without murmurs. RESPIRATORY: Breath sounds equal bilaterally. No accessory muscle use. GASTROINTESTINAL: Abdomen soft, tender in the upper abdomen but not distended. EXTREMITIES: No cyanosis, or edema. MUSCULOSKELETAL: Adequate muscle tone. NEUROLOGICAL: No obvious focal deficit. Awake, alert, and oriented x3. PSYCHIATRIC: Appropriate mood and affect; insight and judgment normal. Assessment/Plan (1) Idiopathic pancreatitis Code(s): K85.00 - Idiopathic acute pancreatitis without necrosis or infection Status: Acute (2) Anemia Code(s): D64.9 - Anemia, unspecified Status: Chronic (3) Leukocytosis Code(s): D72.829 - Elevated white blood cell count, unspecified Status: Acute - Plan 1. Chronic leukocytosis, most consistent with a leukemoid reaction. She has had fluctuating white blood cell counts for several years that usually coincide with a hospital admissions and exacerbation of pancreatitis. In February 2017, she had flow cytometry which did not show any abnormal immunophenotype and no evidence of leukemia. JAK2 mutation and FISH study for BCR-ABL at that time was also negative. During this hospital stay, her white blood cell count trended up from 21,000 to 35,000. There was also evidence of bandemia. I think this is most consistent with a reactive process. August 11, 2018. Sed rate and C-reactive protein both significantly elevated Consistent with inflammatory process. This is likely the reason for leukocytosis. I doubt that she has underlying bone marrow disorder. August 12, 2018. WBC trended up to 40.6. This may be due to the steroid which was started yesterday. August 15, 2018. Patient's abdominal pain slightly better since started on steroid. WBC has trended down to 26.7. She remains afebrile. Infectious disease is following. August 16, 2018. White blood cell count trended down to 18.8. She remains afebrile. It appears that she is responding to steroids with decreased inflammation. August 16, 2018. White blood cell count trended back up to 29.2. This may be demargination from steroid. She remains afebrile. August 22, 2018. WBC still fluctuating. It went down to 23,000 but trended back up to 32,000 yesterday. This may be a combination of inflammatory process and steroid. Infectious disease workup has been negative. August 23, 2018. WBC is back down to 23,000. Patient still on prednisone. August 24, 2018. WBC trended up to 49,000. Discussed with Dr. Eddy and flow cytometry was sent. August 25, 2018. WBC trended back down to 39,000. There are still bandemia and toxic granulation noted. This is most consistent with a reactive leukocytosis. Flow cytometry is pending. 2. Chronic anemia, which is multifactorial due to chronic kidney disease as well as chronic inflammatory disease. Her hemoglobin trended down from 9.9 to 8.4 during this hospital stay. We will check iron studies and vitamin studies. Can consider giving her Epogen if her hemoglobin continues to trend down. She has no evidence of bleeding at this time. August 11, 2018. Iron study and vitamin study did not show any deficiency. The anemia is secondary to chronic kidney disease and chronic inflammatory disease. Her hemoglobin is stable. August 04, 2018. Hemoglobin stable at 7.7. No evidence of bleeding. August 15, 2018. She received 2 units of PRBC transfusion and hemoglobin up to 11.1. August 16, 2018. Hemoglobin remains stable at 11.2 since transfusion. August 22, 2018. Hemoglobin has been stable since transfusion. August 25, 2018. Hemoglobin slowly trended down to 9.1. No gross GI bleed reported. 3. Fluctuating thrombocytosis. She has mild thrombocytosis intermittently, again consistent with a reactive process. August 11, 2018. Thrombocytosis is secondary to reactive process. August 12, 2018. Platelet count trended back down to 423,000. August 17, 2018. Platelet count has trended back down to normal. August 25, 2018. Platelet count trended down to 144,000. Clinically she has no abdominal pain. She probably has developed consumptive process again. 4. Recurrent pancreatitis. This has been going on for more than 5 years. She recently had an endoscopic retrograde cholangiopancreatography with biliary stent exchange. The steroid has been tapered down and this morning patient has more abdominal pain. RECOMMENDATIONS: 1. Continue to monitor CBC. 2. Await flow cytometry result. (1) Idiopathic pancreatitis Qualifiers: (2) Anemia Qualifiers: Anemia type: unspecified type Qualified Code(s): D64.9 - Anemia, unspecified
[2018-08-25] MEDS: Sucralfate 1 GM Tablet PO SCH ×2 (08:43→12:10)
[2018-08-25] MEDS: predniSONE 20 MG Tablet PO SCH (08:43)
[2018-08-25] MEDS: Metoprolol Tartrate 25 MG Tablet PO SCH (08:43)
[2018-08-25] MEDS: Lipase/Protease/Amylase 12/38/60 DR Capsule PO SCH ×3 (08:43→13:48)
[2018-08-25] MEDS: Sod Chloride 0.9% Inj 1,000 ML IV.CONT SCH (08:43)
--- NOTE | 2018-08-25 09:54 | P.DCO ---
- Diagnosis (1) Abdominal pain Status: Acute (2) Idiopathic pancreatitis Status: Acute (3) HTN (hypertension) Status: Chronic (4) GERD (gastroesophageal reflux disease) Status: Acute (5) Gastroparesis Status: Acute (6) Anemia Status: Chronic - Physical Therapy Order: Evaluate and treat, Improve ambulation, Strength and gait training - Home Health Nursing Order: Medical education, Signs/symptoms of disease process, Medication education-adverse effect, Nursing assessment with vital signs - Email Marketing Manager Order: To evaluate: Living conditions/environment, Support services Order: To provide: Long range planning, Community services - Case Management Consult Yes - Certification I have seen patient Park Larsen on 08/25/18. My clinical findings support the need for the requested home health care services because: Limited mobility due to disease progression, Deconditioned with increased weakness, Medication compliance is questionable, Limited ability to care for self, Need for psychosocial assistance, Impaired cognition/judgement, High risk of falls I certify that my clinical findings support that this patient is homebound because: Post-op weakness, Impaired cognitive ability/safety, Unsteady gait/balance, Unsafe to leave home unassisted, Need for psychosocial assistance, Non- ambulatory: confined to bed or chair, Unable to use public transportation (2) Idiopathic pancreatitis Qualifiers: (6) Anemia Qualifiers: Anemia type: unspecified type Qualified Code(s): D64.9 - Anemia, unspecified
[2018-08-25] MEDS: Sodium Chloride 0.9% 2 ML Flush BID IV.FLUSH SCH (10:17)
--- NOTE | 2018-08-25 11:08 | P.DCO ---
- Diagnosis (1) Abdominal pain Status: Acute (2) Idiopathic pancreatitis Status: Acute (3) HTN (hypertension) Status: Chronic (4) GERD (gastroesophageal reflux disease) Status: Acute (5) Gastroparesis Status: Acute (6) Anemia Status: Chronic - Physical Therapy Order: Evaluate and treat, Improve ambulation, Strength and gait training - Home Health Nursing Order: Medical education, Signs/symptoms of disease process, Medication education-adverse effect, Nursing assessment with vital signs - Home Health Aide Order: To assist in: Bathing and personal care, digital account executive and meal prep - Neurological Surgeon Order: To evaluate: Living conditions/environment, Support services Order: To provide: Long range planning, Community services - Case Management Consult Yes - Certification I have seen patient Park Larsen on 08/25/18. My clinical findings support the need for the requested home health care services because: Limited mobility due to disease progression, Deconditioned with increased weakness, Medication compliance is questionable, Limited ability to care for self, Need for psychosocial assistance, Impaired cognition/judgement I certify that my clinical findings support that this patient is homebound because: Impaired cognitive ability/safety, Unsteady gait/balance, Unsafe to leave home unassisted, Need for psychosocial assistance, Non-ambulatory: confined to bed or chair, Unable to use public transportation (2) Idiopathic pancreatitis Qualifiers: (6) Anemia Qualifiers: Anemia type: unspecified type Qualified Code(s): D64.9 - Anemia, unspecified
--- NOTE | 2018-08-25 11:30 | P.DS ---
Date of admission: 07/28/18 03:42 Primary care physician: Hong Peterson MD Attending physician on discharge: Alexander Eddy Anticipated date of discharge: 08/25/18 Brief History from admission: Ms. Larsen is an 82 y/o AAF with recurrent idiopathic pancreatitis. She has been hospitalized numerous times for issues with pain control related to recurrent pancreatitis. Her last admission was from 07/13/18 to 07/26/18 due to WAYNE, idiopathic pancreatitis and had her GJ tube exchanged 07/25/18. Pt was seen in the ED at [facility] [place] on 04/24/18 with abdominal pain. She had a CT Abd/ pelvis during that visit which noted portal venous stent, s/p cholecystectomy, GJ tube in place. Pts lipase was 110 at that time, Cr is 3.51/BUN 38, and WBC count 11. Pt was diagnosed with a UTI and given Keflex BID x 7 days. The urine culture noted probable contaminants. She was seen back in the ED on 04/30/18 with the same abdominal pain. Her labs at that time noted WBC count 17.1, Cr 3.72/BUN 35, GFR 14, Lipase 211. She was treated with supportive care, IVF and pain meds and improved and was discharged back to home. Pt presented back to the ED at [facility] [place] on 05/16/18 with continued abdominal pain since her last admission per the pt but has been worse the last 3 weeks. She relates the pain to food intake which gradually worsens after eating. Pt also gets continuous TF at night. Pt has been having normal BMs. Denies any fevers or chills. She reports that the pain is the same pain that she has had previously with her pancreatitis. She has been trying to use [place] at night for the pain but its not helping. Her labs in the ED revealed WBC count 18.2, Cr 4.56/BUN 60, Lipase 350. Her LFTs were mostly WNL with TBili 0.3, AST 17, ALT less than 6, AlkPhos 211. She had a CT Abd/pelvis w/o IV contrast in the ED which noted stable and grossly unremarkable follow-up CT scan of the abdomen and pelvis compared to the prior study on 04/24/18, stable tiny 2 mm nonobstructing stone right kidney, and stable 1.4 cm right renal cyst. Pt reports that she was seen as an outpt by GI and was being set up for a repeat ERCP for stent exchange. Her UA was abnormal in the ED and he was given Rocephin. Pt presented back to the ED at [facility] [place] on 06/29/18 with continued abdominal pain that is similar to her previous pancreatitis pain. Her labs at that time revealed WBC count 30.1, Cr 5.57 /BUN 73, Lipase 234, TBili 0.3, AST 15, ALT 11 , AlkPhos 139. Pt had ERCP and metal stent placement 06/30, the images demonstrate a metallic stent in the mid and distal common bile duct. The stent is traversed with a guidewire which extends into the intrahepatic bile ducts. The final image demonstrates a plastic stent within the metallic stent. The intrahepatic bile ducts do not appear to be significantly dilated. Pt underwent exchange of G/J tube 07/11/18. She was discharged on 07/13 and now readmitted again in less than a week at home with recurrent abdomen pain. She was again noted to have a/ckd 3 at admission but this did improve with IVF back to around baseline. Her tube feeds were stopped initially but were able to be resumed and placed back to goal. Pt had issues with pain control during admission. Pt was seen by PT daily to sustain her physical strength. Her diet was able to be advanced to liquids but pt did not want to progress past that due to increased abd pain with solid foods. There were intermittent issues with her J-tube NOT flushing. Her GJ tube had to be exchanged on 07/25/18. Her TF were able to be resumed after GJ tube exchanged and pt tolerated TF well. She was discharged on her previous TF regimen. Patient again presented to the ER last night due to worsening abd pain associated with nausea but no vomiting. Patient reprots that she always had mild epigastric pain, but yesterday evening it again became more severe and is associated with nausea but not vomiting. Denies fever or chills, chest pain, cough, difficulty flushing J tube, or diarrhea. On admission WBC 21.6, BUN 44, creatinine 2.[address] abd/pelvis was done and revealed: 1. Postoperative changes of biliary stent with biliary drainage catheter passing through the stent. Gastrojejunostomy tube again noted. 2. Mild stranding of fat around the pancreas could indicate a mild pancreatitis. 3. 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 Medical History: Anxiety CKD (chronic kidney disease) stage 3, GFR 30-59 ml/min Encounter for gastrojejunal (GJ) tube placement GERD (gastroesophageal reflux disease) Hypertension Idiopathic pancreatitis Pancreatitis Surgical History: History of total left knee replacement (TKR) Hx of cholecystectomy S/P ERCP Social History: Patient lives at home with her daughter Denies ETOH use or tobacco use Family History: Family history reviewed non-contributory DS: Diagnosis - Discharge Diagnosis (1) Idiopathic pancreatitis Status: Acute DS: Medications - Discharge Medications Prescriptions: hydrocodone-acetaminophen [[place]] 1 tab PO Q4H PRN #30 tab PRN Reason: Pain nifedipine 30 mg PO BID #60 tab prednisone 20 mg PO DAILY #10 tab DS: Summary Hospital Course: (1) Idiopathic pancreatitis Code(s): K85.00 - Idiopathic acute pancreatitis without necrosis or infection Status: Acute Plan: Idiopathic pancreatitis - Patient is an 82 y/o AAF with recurrent idiopathic pancreatitis. She has been hospitalized numerous times for issues with pain control related to recurrent pancreatitis. Her last admission was from 07/13/18 to 07/26/18 due to WAYNE, idiopathic pancreatitis and had her GJ tube exchanged 07/25/18. - Patient again presented to the ER last night due to worsening abd pain associated with nausea but no vomiting. Patient reports that she always had mild epigastric pain, but yesterday evening it again became more severe and is associated with nausea but not vomiting. Denies fever or chills, chest pain, cough, difficulty flushing J tube, or diarrhea. - On admission WBC 21.6, BUN 44, creatinine 2.60 and lipase 2673. - CT abd/pelvis: 1. Postoperative changes of biliary stent with biliary drainage catheter passing through the stent. Gastrojejunostomy tube again noted. 2. Mild stranding of fat around the pancreas could indicate a mild pancreatitis. 3. 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 - PO pain medication as needed - Appreciate input from GI. - Pt underwent repeat ERCP with stent exchange, 08/02/18 (ERCP and stent exchange cancelled on 08/01 as patient's daughter needed to talk with Dr. Ortega prior to signing consent.). According to the procedure report, the common bile duct had multiple filling defects which were able to be cleaned out and once cleaned he was able to clearly see the ingrowth into the old metal stent and so a 10 Greek 40 mm stent was placed within the first metal stent and it protruded about a centimeter into the duodenum with good drainage noted. The intrahepatics appeared to be unremarkable - Dietary recommended TF with [place] with goal rate 40mls/hr, orders placed for this for discharge as pt was previously on Jevity but complained of diarrhea. - Pts lipase started to trend slightly up on 08/07 and 08/08 - lipase 2673 (07/28), 2471 (07/29), 758 (07/30), 215 (08/10), 155 (08/02), 730 (08/03 ), 509 (08/04), 423 (08/05), 708 (08/07), 768 (08/08), 596 (08/09), 459 (08/10/18), 271 (08/12), 102 (08/24) - On 08/07 the pts nurse reported that when flushing the J-tube that the water was coming up through the pts insertion site in the skin. - GJ tube reevaluated by Dr. Lala (08/08/18) G and J ports both patent. No findings of leakage from tube or through dermatotomy. Patient does appear to have some stasis of material in gastric lumen probably secondary to gastroparesis. Placed G-port to gravity drainage. - J-tube is reassessed by IR (08/13) and functional after flushing with warm water - Pts TF are were up to goal rate (40 mL/hr), but pt again began having drainage from the GJ tube insertion site. - TF stopped on 08/18/18. - IR was reconsulted on 08/18/18 to re-evaluate the GJ tube. The G tube was ordered to be placed to gravity drain which was not done. I contacted IR and they brought the pt down to inject the GJ tube and found the balloon had fallen away from the stomach wall. This was synched back down to the stomach wall. Zip tie applied to disk to help prevent this from recurring. - Pt was resumed on TF and currently tolerating goal rate of 40mL/hr - Continue clears - [place] prn - appreciate input from Palliative Medicine - Appreciate input from Dr. Stewart. - IV Solu-Medrol 60 mg IV Q6H (08/11 - 08/15) -> start to taper Solu-Medrol decreased to 60 mg IV Q12H (08/15). Pt tapered do Prednisone 20mg BID on 08/19/18 - ID consulted per pts daughter, Ms. Perez's request. - Per ID IMPRESSION: "Leukocytosis. This is probably reactive. White blood cell count is improving. The patient received Solu-Medrol, which may lead to even further increase in the white count, but her white count was elevated prior to the Solu-Medrol. The patient has a diagnosis of pancreatitis, which could also be contributing to the white blood cell count elevation as well." - WBC 49.2 (08/23). NO fever - no stool today (08/23) - decrease prednisone to 20mg daily x 7days. - Case d/w Hematology, Dr. Eliazar Cristina (08/23/18) - obtain repeat flow cytometry --> negative - KUB (08/23) --> no acute findings - physical exam unremarkable on day of discharge (08/25/18) - pt appears comfortable - Pt requires much assistance with ADLs - discharge to home would NOT be optimal. Pt's daughter works part time. - discharge to SNF would be appropriate, but pt has been refusing. - at this time, I see NO medical indication for continued hospitalization - Pt's leukocytosis does NOT correlate with infection. Please consultation notes from Infectious Disease, Hematology, and GI agreeing with this assessment. - repeat lipase WNL - I discussed possibility of SNF with pt's daughter, Ms. Caitlyn Perez, by phone (08/24/18). - Pt/daughter (Caitlyn) adamantly declined SNF - I disagree with this decision, and I feel that pt is a high risk of readmission. - I have arranged for HHC, Home PT, [facility], [facility] - f/u with PCP, Dr. Hong Peterson in 1 week - f/u with GI, Dr. Gregg Ortega in 3 weeks Oral Thrush - resolved - nystatin swish and swallow completed - Give a 10-day course of Diflucan po through 08/22/18. Chronic kidney failure - improved - Pt with baseline stage 3 CKD, pt follows with Dr. Melara - avoid nephrotoxic agents - Per RN several OTC Advil found hidden in a tissue box at patient's bedside. Discussed with patient and nurse that she should not be taking Advil given her renal function and should not be taking outside medications - Cr 3.37 (08/10), 3/48 (08/12), 3.46 (08/13), 3.39 (08/14), 3.30 (08/15), 3.23 (08/16 ), 3.21 (08/17), 2.83 (08/19), 2.15 (08/24) - Hypernatremia - resolved - sodium 151 (08/09), 147 (08/10), 145 (08/11), 136 (08/12), 137 (08/15), 136 (08/16) , 126 (08/17) - patient had not received free water flush due to concern regarding GJ tube Leukocytosis, persistent - [facility] Medical team has cared for Ms. Larsen for several years and many different admissions. - Pt tends to have marked persistent leukocytosis during her admissions which correlated to flares of her idiopathic pancreatitis - paradoxically, pt's leukocytosis has improved in the past, as well as her clinical condition with steroids - possibly d/t to a reactive process - Pt has had NO fever above 99.9F this entire admission - There is NO indication of infection. Pt has NO c/o cough, SOB, or dysuria. There is NO diarrhea. - appreciate input from Hematology, Dr. Perea. Leukocytosis is likely d/t Pancreatitis. - Pt/family request consultation from Infectious Disease, concerned that leukocytosis is d/t infection. - WBC 21.6 (07/28), 24.9 (07/29), 22.6 (07/30), 24 (07/31), 22.1 (08/02), 31.4 (08/03) , 29.2 (08/04), 23.5 (08/05), 34.9 (08/08), 33.0 (08/09), 40.6 (08/12), 38.1 (08/13), 26.7 (08/14), 18.1 (08/15), 18.5 (08/16), 29.2 (08/17), 24.0 (08/19), 32 (08/21), 23.8 (08/22) - I appreciate the input from ID, Dr. Chahal. - This may be a combination of inflammatory process and steroid. Infectious disease workup has been negative. - Pt also seen by Hematology, Dr. Cristina. Please read above. - repeat flow cytometry was negative. - PO diflucan (completed on 08/22/18) and nystatin s/s completed - see above HTN (hypertension) - stop norvasc - procardia XL 30mg BID (08/23) - improved BP readings with BID procardia XL GERD (gastroesophageal reflux disease) - PPI Hypomagnesemia - repleted Hypokalemia - resoved Anemia - d/t chronic disease, stable. - this diagnosis has been explored during prior hospitalizations and d/w Hematology - anemia felt to be d/t underlying disease processes - Hg 7.6 (08/13), 11.1 (08/14), 11.2 (08/15), 11.6 (08/16), 11.5 (08/17), 11.3 91/) , 11.2 (08/21), 10.3 (08/22) - Pt was transfused 2 units PRBCs on 08/13 - Hg 9.1 (08/24) - Time Spent with Patient Total time spent providing and/or coordinating discharge services: Greater than 30 minutes - Quality: VTE Deep Vein Thrombosis/Pulmonary Embolism Present on Admission: No Exam Vital signs: 08/24/18 20:00 08/25/18 00:00 08/25/18 08:00 Temperature 98.2 F 98.1 F 98.1 F Pulse Rate 115 H 116 H 111 H Respiratory Rate 17 17 18 Blood Pressure 138/84 162/92 H 148/75 H Pulse Oximetry 99 98 97 Narrative: GENERAL: This is a 82 year old female, well-developed patient, in no apparent distress. CARDIO: Regular RESP: CTA bilaterally. ABD: +BS, soft, nontender, nondistended. GJ tube in place, no drainage or puss noted at the insertion site EXT: No edema. Results Procedures completed during hospitalization: see hospital course Labs on day of discharge: Labs from last 24 hours 08/25/18 08/24/18 08/23/18 03:22 06:12 20:12 WBC Differential Manual diff final Seg Neuts % (Manual) 90 H Band Neuts % (Manual) 2 Lymphocytes % (Manual) 5 L Monocytes % (Manual) 2 Eosinophils % (Manual) 1 Metamyelocytes % (Man) 1 Abs Neuts (Manual) 36.5 H Nucleated RBCs/100 WBC 1 H Toxic Vacuolation Present H Platelet Estimate Low L Platelet Morphology Normal Sodium 143 Potassium 3.4 L Chloride 104 Carbon Dioxide 24.7 Anion Gap 14 BUN 36 H Creatinine 2.18 H Estimated GFR 26 L Random Glucose 134 H Calcium 7.2 L* Prot Corrected Calcium 8.1 L Total Protein 5.4 L Immunophenotypic Anal - Impressions Abdomen/Pelvis CT 07/28/18 01:18 1. Postoperative changes of biliary stent with biliary drainage catheter passing through the stent. Gastrojejunostomy tube again noted. 2. Mild stranding of fat around the pancreas could indicate a mild pancreatitis. 3. 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 GI Procedure 08/02/18 00:00 A biliary stent has been placed. It is in good position. There is good filling of the hepatic ducts. Tube Check 08/19/18 00:00 1. Uncomplicated tube injection as above. The tube is in good position. Leakage around the tube is secondary to the balloon having fallen away. The balloon was repositioned appropriately.. Abdomen X-Ray 08/23/18 00:00 No acute abnormalities. Discharge Plan - Discharge Disposition Patient Disposition: /Home Health Service - Discharge Condition Condition: Stable - Discharge Order Discharge Orders: Discharge Order (Routine); Ordered 08/25/18 Ordered By: Alexander Eddy - Discharge Details Anticipated Discharge Date: 08/08/18 Discharge Comment: Followup with Dr. Petreson in 1 week, call for an appt. - Physicians Team Primary Care Provider: Hong Peterson Attending Provider: Alexander Eddy Other Providers: Jelly Lino MD ; [employer] [facility] ; Eliazar Cristina MD ; Tejas Berry MD ; Betito Mccloud MD ; Mark Dorsey MD
[2018-08-25 12:18] VITALS: BP 145/80; PULSE 93; RESP 16; TEMP 97.9; O2SAT 96
== END 2018-08-25 16:02 | disposition home health service (06) ==
LOC: NEPE 00:50 → NEDA 03:42 → N07 05:43
PROVIDERS: ADMIT Hospitalist; ATTEND Hospitalist

== ENCOUNTER 2018-11-15 17:58 | Inpatient (IN) ==
[2018-11-15] MEDS ORDERED: Pantoprazole Inj 40 MG Vial IV.PUSH ONE (18:10)
[2018-11-15] MEDS ORDERED: Sod Chloride 0.9% Inj 1,000 ML IV.SIG ONE (18:10)
--- NOTE | 2018-11-15 18:42 | ED ---
HPI General Chief Complaint: Abdominal Pain Stated Complaint: GI bleed Time Seen by Provider: 11/15/18 18:00 Source: patient, EMS and old records reviewed Mode of arrival: EMS Limitations: no limitations History of Present Illness HPI narrative: 82-year-old female who presents to the ED for evaluation of GI bleed. Per report I was given patient apparently was found to have blood in her stool and dark stools for the past 2-3 days. Patient apparently has a PEG tube and is currently on hospice. Is unclear as to why she is on hospice. 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 Unclear if since then she has been having hospice or not. Patient herself is not a great historian does not really know why she is here. Per patient she was just brought here for evaluation. She states that she has had blood transfusions in the past. She cannot really tell me who put the PEG tube or who did the surgery. She is a [facility] patient. Patient herself denies any symptoms other than some abdominal pain on her epigastric area per patient appears to be more significant than before as well as weakness that appears to be worsened than her normal. No family initially at bedside. Pain per patient is 5 out of 10. Related Data Home Medications Medication Instructions Recorded Confirmed [id number] [Creon] 1 tab PO TIDPC 05/16/18 11/15/18 magnesium hydroxide [Presley Milk 311 mg PO QID PRN 05/16/18 11/15/18 of Magnesia] metoprolol tartrate 25 mg PO BID 05/16/18 11/15/18 pantoprazole 40 mg PO BID 05/16/18 11/15/18 sucralfate 1 g PO TID 05/16/18 11/15/18 Previous Rx's Medication Instructions Recorded duloxetine [Cymbalta] 20 mg PO DAILY cap 07/13/18 prednisone 10 mg PO DAILY #5 tab 07/13/18 ursodiol [Actigall] 300 mg PO BID cap 07/13/18 water for injection, sterile 200 ml G-TUBE Q6HR ml 07/13/18 calcium carbonate 500 mg CHEW BID tab 08/25/18 hydrocodone-acetaminophen [[place]] 1 tab PO Q4H PRN #30 tab 08/25/18 nifedipine 30 mg PO BID #60 tab 08/25/18 prednisone 20 mg PO DAILY #10 tab 08/25/18 Allergies Allergy/AdvReac Type Severity Reaction Status Date / Time No Known Allergies Allergy Unverified 05/16/18 07:25 Review of Systems ROS: all other systems reviewed are negative [facility] Medical History Medical History Anxiety (Acute) CKD (chronic kidney disease) stage 3, GFR 30-59 ml/min (Acute) Encounter for gastrojejunal (GJ) tube placement (Acute) GERD (gastroesophageal reflux disease) (Acute) Hx of blood transfusion reaction (Acute) Hypertension (Acute) Idiopathic pancreatitis (Acute) Pancreatitis (Acute) Surgical History Surgical History History of total left knee replacement (TKR) (Acute) Hx of cholecystectomy (Acute) S/P ERCP (Acute) Family History Family History Other Has 1 child Has 1 living child Social History Social History Substance History: No History of Abuse Second Hand Smoke Exposure: No Smoking Status: Unknown if ever smoked How Often Do You Have a Drink Containing Alcohol: Unable to Obtain Immunization History Tetanus Immunization: Unsure Exam Narrative Exam Narrative: GENERAL: Well appearing. SKIN: Focused skin assessment warm/dry. HEAD: Atraumatic. Normocephalic. EYES: Pupils equal and round. No scleral icterus. No injection or drainage. ENT: No nasal bleeding or discharge. Mucous membranes pink and moist. Tongue is midline. No Uvula deviation. NECK: Trachea midline. No JVD. CARDIOVASCULAR: Regular rate and rhythm. No murmur appreciated. RESPIRATORY: No accessory muscle use. Clear to auscultation. Breath sounds equal bilaterally. GASTROINTESTINAL: Abdomen soft, non-tender, nondistended. Hepatic and splenic margins not palpable. Rectal exam: Done with female nurse present at all times. Patient has no hemorrhoid or mass noted. No active blood but Hemoccult was done and was positive. MUSCULOSKELETAL: No obvious deformities. No clubbing. No cyanosis. No edema. Full range of motion of the upper and lower extremities bilaterally. 2+ pulses bilaterally. NEUROLOGICAL: Awake and alert. No obvious cranial nerve deficits. Motor grossly within normal limits. Normal speech. PSYCHIATRIC: Appropriate mood and affect; insight and judgment normal. Procedures Hemaprompt Stool Procedural Steps Taken: specimen placed in appropriate test area, developer placed on specimen and control areas and controls appropriately positive and negative Hemaprompt Stool Result: positive Course Initial Documented Vital Signs Temperature 98 F 11/15/18 18:09 Pulse Rate 76 11/15/18 18:09 Respiratory Rate 16 11/15/18 18:09 Blood Pressure 91/54 L 11/15/18 18:09 Pulse Oximetry 98 11/15/18 18:09 Last Documented Vital Signs Temperature 98 F 11/15/18 18:09 Pulse Rate 76 11/15/18 18:09 Respiratory Rate 16 11/15/18 18:09 Blood Pressure 91/54 L 11/15/18 18:09 Pulse Oximetry 98 11/15/18 18:09 Medical Decision Making MDM Narrative Medical decision making narrative: 82-year-old female who presents to the ED for evaluation of possible GI bleed. Patient was properly examined and was found to have signs and symptoms consistent appears to be GI bleed. Hemoccult positive. Unclear as to the history and why patient is in hospice. Patient had a substantial admission last time she was here and she had a PEG tube placed. Labs and imaging were ordered. Labs and imaging showed what appears to be anemia as well as worsening kidney function. I was able to speak there with a great granddaughter who is at bedside. She is unable to tell us that the patient had a colonoscopy or EGD but apparently patient does do hospice outpatient. Unclear as to the reasoning as the great-granddaughter does not know but per her she does note the patient is not a DNR and they want her to have everything done if possible. At this time case was discussed with my attending who agrees with plan. Patient will be admitted to medical team for further evaluation of GI bleed and acute kidney failure. Case discussed with Dr Basurto who agrees with admission. Medical Screen Exam Complete: Yes Emergency Medical Condition: Yes Differential Diagnosis Differential Diagnosis: Pancreatitis versus kidney injury versus GI bleed versus ulcer versus cancer patient Medical Records Medical records reviewed: Yes I reviewed the patient's medical records. Lab Data Lab results reviewed: Yes I reviewed the patient's lab results. Result diagrams: 11/15/18 18:36 01/01/19 18:36 Lab Results 11/15/18 11/15/18 11/15/18 Range/Units 18:36 18:36 18:36 WBC 12.4 H (4.0-11.0) th/mm3 RBC 2.77 L (4.00-5.30) mil/mm3 Hgb 8.0 L (11.6-15.3) gm/dL Hct 24.4 L (35.0-46.0) % MCV 88.1 (80.0-100.0) fL MCH 29.0 (27.0-34.0) pg MCHC 32.9 (32.0-36.0) % RDW 14.5 (11.6-17.2) % Plt Count 447 (150-450) th/mm3 MPV 8.1 (7.0-11.0) fL Neut % (Auto) 70.9 H (16.0-70.0) % Lymph % (Auto) 17.9 (9.0-44.0) % [place] % (Auto) 4.6 (0.0-8.0) % Eos % (Auto) 5.5 H (0.0-4.0) % Baso % (Auto) 1.1 (0.0-2.0) % Neut # (Auto) 8.8 H (1.8-7.7) th/mm3 Lymph # (Auto) 2.2 (1.0-4.8) th/mm3 [place] # (Auto) 0.6 (0.0-0.9) th/mm3 Eos # (Auto) 0.7 H (0.0-0.4) th/mm3 Baso # (Auto) 0.1 (0.0-0.2) th/mm3 WBC Differential . Differential Comment Auto diff final PT 11.9 H (9.8-11.6) sec INR 1.2 Ratio APTT 31.1 (23.4-31.7) sec Sodium 138 (136-145) meq/L Potassium 4.7 (3.5-5.1) meq/L Chloride 101 (98-107) meq/L Carbon Dioxide 28.3 (21.0-32.0) meq/L Anion Gap 9 (5-15) meq/L BUN 132 H (7-18) mg/dL Creatinine 4.82 H (0.50-1.00) mg/dL Estimated GFR 10 L (>89) mL/min Random Glucose 101 (74-106) mg/dL Calcium 9.1 (8.5-10.1) mg/dL Total Bilirubin 0.2 (0.2-1.0) mg/dL AST 26 (15-37) U/L ALT 34 (10-53) U/L Alkaline Phosphatase 144 H (45-117) U/L Troponin I Less than 0.02 L (0.02-0.05) ng/mL Total Protein 8.5 H (6.4-8.2) g/dL Albumin 2.5 L (3.4-5.0) g/dL Lipase 111 (73-393) U/L Blood Type Antibody Screen MTS Gel Crossmatch Bld Prod Order Comment 11/15/18 11/15/18 Range/Units 18:36 19:44 WBC (4.0-11.0) th/mm3 RBC (4.00-5.30) mil/mm3 Hgb (11.6-15.3) gm/dL Hct (35.0-46.0) % MCV (80.0-100.0) fL MCH (27.0-34.0) pg MCHC (32.0-36.0) % RDW (11.6-17.2) % Plt Count (150-450) th/mm3 MPV (7.0-11.0) fL Neut % (Auto) (16.0-70.0) % Lymph % (Auto) (9.0-44.0) % [place] % (Auto) (0.0-8.0) % Eos % (Auto) (0.0-4.0) % Baso % (Auto) (0.0-2.0) % Neut # (Auto) (1.8-7.7) th/mm3 Lymph # (Auto) (1.0-4.8) th/mm3 [place] # (Auto) (0.0-0.9) th/mm3 Eos # (Auto) (0.0-0.4) th/mm3 Baso # (Auto) (0.0-0.2) th/mm3 WBC Differential Differential Comment PT (9.8-11.6) sec INR Ratio APTT (23.4-31.7) sec Sodium (136-145) meq/L Potassium (3.5-5.1) meq/L Chloride (98-107) meq/L Carbon Dioxide (21.0-32.0) meq/L Anion Gap (5-15) meq/L BUN (7-18) mg/dL Creatinine (0.50-1.00) mg/dL Estimated GFR (>89) mL/min Random Glucose (74-106) mg/dL Calcium (8.5-10.1) mg/dL Total Bilirubin (0.2-1.0) mg/dL AST (15-37) U/L ALT (10-53) U/L Alkaline Phosphatase (45-117) U/L Troponin I (0.02-0.05) ng/mL Total Protein (6.4-8.2) g/dL Albumin (3.4-5.0) g/dL Lipase (73-393) U/L Blood Type B Positive Antibody Screen Negative MTS Gel Crossmatch See Detail Bld Prod Order Comment Imaging Data Attestation: I personally reviewed and interpreted this imaging study as follows : Radiologist's impression: Chest X-Ray 11/15/18 18:10 CONCLUSION: Subsegmental basilar airspace disease. No effusion or pneumothorax. ECG Data Attestation: I personally reviewed and interpreted this ECG as follows: Interpretation: EKG shows sinus rhythm with no sign of acute ischemia and arrhythmia read by me and attending. Discharge Plan Discharge Disposition Patient Disposition: ED Admit(ED Internal Use Only) Discharge Order Discharge Orders: ED Use Only Admit Order (Routine); Ordered 11/15/18 Ordered By: Quintin Ty Discharge Details Diagnosis: Acute kidney injury, Acute GI bleeding Physicians Team ED Provider: [facility] ED Midlevel Provider: Quintin Ty Primary Care Provider: Hong Peterson Attending Provider: Guadalupe Basurto Status ED Status: Admitted Patient
[2018-11-15 18:50] LABS: Baso # (Auto) 0.1 th/mm3 (0.0-0.2); Baso % (Auto) 1.1 % (0.0-2.0); Eos # (Auto) 0.7 th/mm3 (0.0-0.4); Eos % (Auto) 5.5 % (0.0-4.0); Hematocrit 24.4 % (35.0-46.0); Lymph # (Auto) 2.2 th/mm3 (1.0-4.8); Lymph % (Auto) 17.9 % (9.0-44.0); Mean Corpuscular HGB Conc 32.9 % (32.0-36.0); Mean Corpuscular Volume 88.1 fL (80.0-100.0); Mean Platelet Volume 8.1 fL (7.0-11.0); Mono # (Auto) 0.6 th/mm3 (0.0-0.9); Mono % (Auto) 4.6 % (0.0-8.0); Neut # (Auto) 8.8 th/mm3 (1.8-7.7); Neut % (Auto) 70.9 % (16.0-70.0); Platelet Count 447 th/mm3 (150-450); Red Blood Count 2.77 mil/mm3 (4.00-5.30); Red Cell Distribution Width 14.5 % (11.6-17.2); White Blood Count 12.4 th/mm3 (4.0-11.0)
[2018-11-15 19:01] LABS: Activated Partial Thrombo Time 31.1 sec (23.4-31.7); INR 1.2 Ratio; Prothrombin Time 11.9 sec (9.8-11.6)
[2018-11-15 19:08] LABS: Albumin 2.5 g/dL (3.4-5.0); Anion Gap 9 meq/L (5-15); Aspartate Aminotransferase 26 U/L (15-37); Blood Urea Nitrogen 132 mg/dL (7-18); Calcium 9.1 mg/dL (8.5-10.1); Carbon Dioxide 28.3 meq/L (21.0-32.0); Chloride 101 meq/L (98-107); Glomerular Filtration Rate 10 mL/min (>89); Glucose,Random 101 mg/dL (74-106); Lipase 111 U/L (73-393); Potassium 4.7 meq/L (3.5-5.1); Sodium 138 meq/L (136-145)
[2018-11-15 19:10] LABS: Alanine Aminotransferase 34 U/L (10-53)
[2018-11-15 19:13] LABS: Alkaline Phosphatase 144 U/L (45-117); Total Protein 8.5 g/dL (6.4-8.2)
--- NOTE | 2018-11-15 20:04 | XR ---
EXAM DATE: 11/15/2018 6:33 PM EST AGE/SEX: 82 years / Female INDICATIONS: Chest pain. CLINICAL DATA: This is the patient's initial encounter. Patient reports that signs and symptoms have been present for 1 day and indicates a pain score of Nonresponsive. MEDICAL/SURGICAL HISTORY: Hypertension. None. COMPARISON: [facility] [place], CHEST 1V SINGLE AP, 07/17/2018. . FINDINGS: There is subsegmental airspace disease at the lung bases. No effusion. No pneumothorax. Heart size up per limits normal. CONCLUSION: Subsegmental basilar airspace disease. No effusion or pneumothorax. Electronically signed by: Jordon Gloria MD Board Certified Radiologist 11/15/2018 8:03 PM EST
[2018-11-15] MEDS ORDERED: Bisacodyl 10 MG Supp RECTAL PRN (22:27)
--- NOTE | 2018-11-15 23:09 | P.HP ---
History of Present Illness Service: [facility] Primary Care Physician: Hong Peterson MD History of Present Illness: 82-year-old female with a past medical history significant for CKD stage III, chronic pancreatitis with GJ tube, hypertension and GERD previously on hospice, revoked so that the patient could receive full treatment in the hospital presents to the emergency department for evaluation of blood through her GJ tube. The patient's granddaughter is bedside who states that during her feed earlier today she noted a significant amount of bright red blood coming out of the patient's feeding tube. She also reports dark, tarry stools for the past 2- 3 days. The patient was admitted to [facility] earlier this month, underwent an ERCP that her granddaughter said was "unsuccessful." She was then transferred to rehab and return to home after 2-1/2 weeks and rehab. The patient is largely bedbound. She has no complaints at this time. Denies chest pain or shortness of breath. States her abdominal pain is baseline at 5/10. No fever/chills. No focal neurologic deficits. Inpatient Certification: I certify that the inpatient services were ordered in accordance with Medicare regulations governing the order. This includes certification that hospital inpatient services are reasonable and necessary and in the case of services not specified as inpatient-only under 42 CFR 419.22(n), that they are appropriately provided as inpatient services in accordance to with the 2-midnight benchmark under 43 CFR 412.3(e) Estimated Total Length of Stay (Days): 2 Plans for Post Hospital Care: Home Review of Systems All other systems reviewed negative except as stated in HPI [facility] - History History Provided By: Patient, Oncology Rep Specialist / EMT - Medical History Medical History: Medical History (Last Reviewed 11/15/18 @ 22:57 by Guadalupe Basurto MD) Anxiety CKD (chronic kidney disease) stage 3, GFR 30-59 ml/min Encounter for gastrojejunal (GJ) tube placement GERD (gastroesophageal reflux disease) Hx of blood transfusion reaction Hypertension Idiopathic pancreatitis Pancreatitis - Surgical History Surgical History: Surgical History (Last Reviewed 11/15/18 @ 22:57 by Guadalupe Basurto MD) History of total left knee replacement (TKR) Hx of cholecystectomy S/P ERCP - Family History Family History: Family History (Last Reviewed 11/15/18 @ 22:57 by Guadalupe Basurto MD) Other Has 1 child Has 1 living child - Social History I have reviewed the patient's Social History: Yes - Tobacco History Second Hand Smoke Exposure: No Smoking Status: Unknown if ever smoked - Alcohol History How Often Do You Have a Drink Containing Alcohol: Unable to Obtain - Substance Use History Substance History: No History of Abuse - Immunization History Tetanus Immunization: Unsure Medications and Allergies Active Medications: Active Medications Acetaminophen (Tylenol) 650 mg PO Q4H PRN PRN Reason: Temp > 100.4 Hydrocodone Bitart/Acetaminophen (Badin 5/325) 1 tab PO Q4H PRN PRN Reason: Pain Al Hydroxide/Mg Hydroxide (Milk Of Magnesia Liq) 30 ml PO Q12H PRN PRN Reason: Mild Constipation Lipase/Protease/Amylase (Mando Kapoor ) 1 cap PO TIDPC HITESH Bisacodyl (Dulcolax Supp) 10 mg RECTAL DAILY PRN PRN Reason: SEVERE CONSITIPATION Calcium Carbonate (Tums Chew) 500 mg CHEW BID HITESH Duloxetine HCl (Cymbalta) 20 mg PO DAILY HITESH Sodium Chloride (Ns Inj) 1,000 mls @ 100 mls/hr IV.CONT .Q10H HITESH Lactulose (Lactulose Liq) 30 ml PO DAILY PRN PRN Reason: SEVERE CONSITIPATION Metoprolol Tartrate (Lopressor) 25 mg PO BID HITESH Nifedipine (Procardia Xl) 30 mg PO BID HITESH Ondansetron HCl (Zofran Inj) 4 mg IV.PUSH Q6H PRN PRN Reason: NAUSEA OR VOMITING Pantoprazole Sodium (Protonix Inj) 40 mg IV.PUSH Q12H HITESH Sennosides (Senokot) 17.2 mg PO Q12H PRN PRN Reason: Moderate Constipation Sodium Chloride (Ns Flush) 2 ml IV.FLUSH BID HITESH Sodium Chloride (Ns Flush) 2 ml IV.FLUSH PRN PRN PRN Reason: FLUSH AFTER USING IV ACCESS Sucralfate (Carafate) 1 gm PO TID HITESH Allergies Allergy/AdvReac Type Severity Reaction Status Date / Time No Known Allergies Allergy Unverified 05/16/18 07:25 Home Medications Medication Instructions Recorded Confirmed Type gsfugo-mogkgmlf-awhyakt [Creon] 1 tab PO TIDPC 05/16/18 11/15/18 History magnesium hydroxide [Presley Milk 311 mg PO QID PRN 05/16/18 11/15/18 History of Magnesia] metoprolol tartrate 25 mg PO BID 05/16/18 11/15/18 History pantoprazole 40 mg PO BID 05/16/18 11/15/18 History sucralfate 1 g PO TID 05/16/18 11/15/18 History Exam Vital signs: Vital Signs 11/15/18 18:09 11/15/18 22:14 11/15/18 22:36 Temperature 98 F 98.6 F 98.2 F Pulse Rate 76 78 78 Respiratory Rate 16 18 16 Blood Pressure 91/54 L 117/59 L 106/63 Pulse Oximetry 98 Intake & Output 11/15/18 11/15/18 11/16/18 06:59 18:59 06:59 Intake Total 1000 / 1000 Balance 1000 / 1000 Weight 52.163 kg Intake: IV 1000 / 1000 NS Inj 1,000 ML @ Wide Open IV. 1000 / 1000 SIG BOLUS ONE Rx#:[id number] Intake (Blood Product) Amt 0 / 0 Rbc As-3 Leukoreduced Unit 0 / 0 [id number] Narrative: Gen.: No acute distress Head: Normocephalic. Atraumatic. EENT: Pupils equal round and reactive to light. Nose without drainage. Airway intact. Throat without injection. Cardiovascular: Regular rate and rhythm. No murmurs, rubs or gallops. Respiratory: Lungs clear to auscultation bilaterally. No wheezes or rhonchi. Abdomen: Soft, nontender, nondistended. No peritoneal signs. GJ tube in place without signs of infection. Musculoskeletal: No gross deformities. No edema. Skin: No obvious rashes or erythema. Neuro: Sensory and motor grossly intact. Cranial nerves II through XII grossly intact. Results - Labs CBC & Chem 7: 11/15/18 18:36 11/15/18 18:36 Labs: Laboratory Results - last 24 hr 11/15/18 11/15/18 11/15/18 18:36 18:36 18:36 WBC 12.4 H RBC 2.77 L Hgb 8.0 L Hct 24.4 L MCV 88.1 MCH 29.0 MCHC 32.9 RDW 14.5 Plt Count 447 MPV 8.1 Neut % (Auto) 70.9 H Lymph % (Auto) 17.9 [place] % (Auto) 4.6 Eos % (Auto) 5.5 H Baso % (Auto) 1.1 Neut # (Auto) 8.8 H Lymph # (Auto) 2.2 [place] # (Auto) 0.6 Eos # (Auto) 0.7 H Baso # (Auto) 0.1 WBC Differential . Differential Comment Auto diff final PT 11.9 H INR 1.2 APTT 31.1 Sodium 138 Potassium 4.7 Chloride 101 Carbon Dioxide 28.3 Anion Gap 9 BUN 132 H Creatinine 4.82 H Estimated GFR 10 L Random Glucose 101 Calcium 9.1 Total Bilirubin 0.2 AST 26 ALT 34 Alkaline Phosphatase 144 H Troponin I Less than 0.02 L Total Protein 8.5 H Albumin 2.5 L Lipase 111 Blood Type Antibody Screen MTS Gel Crossmatch Bld Prod Order Comment 11/15/18 11/15/18 18:36 19:44 WBC RBC Hgb Hct MCV MCH MCHC RDW Plt Count MPV Neut % (Auto) Lymph % (Auto) [place] % (Auto) Eos % (Auto) Baso % (Auto) Neut # (Auto) Lymph # (Auto) [place] # (Auto) Eos # (Auto) Baso # (Auto) WBC Differential Differential Comment PT INR APTT Sodium Potassium Chloride Carbon Dioxide Anion Gap BUN Creatinine Estimated GFR Random Glucose Calcium Total Bilirubin AST ALT Alkaline Phosphatase Troponin I Total Protein Albumin Lipase Blood Type B Positive Antibody Screen Negative MTS Gel Crossmatch See Detail Bld Prod Order Comment - Imaging Impressions Chest X-Ray 11/15/18 18:10 CONCLUSION: Subsegmental basilar airspace disease. No effusion or pneumothorax. Caprini VTE Risk Assessment Caprini VTE Risk Assessment: Moderate/High Risk (score >= 2) Caprini Risk Assessment Model: Point Value = 1 Point Value = 2 Point Value = 3 Point Value = 5 Age 41-60 Minor surgery BMI > 25 kg/m2 Swollen legs Varicose veins or History of unexplained or recurrent spontaneous Oral contraceptives or hormone replacement Sepsis (< 1 month) Serious lung disease, including pneumonia (< 1 month) Abnormal pulmonary function Acute myocardial infarction Congestive heart failure (< 1 month) History of inflammatory bowel disease Medical patient at bed rest Age 61-74 Arthroscopic surgery Major open surgery (> 45 min) Laparoscopic surgery (> 45 min) Malignancy Confined to bed (> 72 hours) Immobilizing plaster cast Central venous access Age >= 75 History of VTE Family history of VTE Factor V Leiden Prothrombin [id number] Lupus anticoagulant Anticardiolipin antibodies Elevated serum homocysteine Heparin-induced thrombocytopenia Other congenital or acquired thrombophilia Stroke (< 1 month) Elective arthroplasty Hip, pelvis, or leg fracture Acute spinal cord injury (< 1 month) Prophylaxis Regimen: Total Risk Factor Score Risk Level Prophylaxis Regimen 0-1 Low Early ambulation 2 Moderate Order ONE of the following: *Sequential Compression Device (SCD) *Heparin 5000 units SQ BID 3-4 Higher Order ONE of the following medications: *Heparin 5000 units SQ TID *Enoxaparin/Lovenox 40 mg SQ daily (WT < 150 kg, CrCl > 30 mL/min) *Enoxaparin/Lovenox 30 mg SQ daily (WT < 150 kg, CrCl > 10-29 mL/min) *Enoxaparin/Lovenox 30 mg SQ BID (WT < 150 kg, CrCl > 30 mL/min) AND/OR *Sequential Compression Device (SCD) 5 or more Highest Order ONE of the following medications: *Heparin 5000 units SQ TID (Preferred with Epidurals) *Enoxaparin/Lovenox 40 mg SQ daily (WT < 150 kg, CrCl > 30 mL/min) *Enoxaparin/Lovenox 30 mg SQ daily (WT < 150 kg, CrCl > 10-29 mL/min) *Enoxaparin/Lovenox 30 mg SQ BID (WT < 150 kg, CrCl > 30 mL/min) AND *Sequential Compression Device (SCD) Assessment and Plan - Plan Assessment/plan: 1. GI bleed Patient with bright red blood coming out her feeding tube and Hemoccult positive in the emergency department Transfuse 1 unit packed red blood cells for hemoglobin of 8.0 Gastroenterology consulted, appreciate assistance IV Protonix 2. Chronic pancreatitis Patient with a long history of recurrent idiopathic pancreatitis for which she has been hospitalized many times History of biliary stent and GJ tube Continue home Badin 3. Acute renal failure in the setting of chronic kidney disease Patient with history of CKD stage III, baseline creatinine 2-3 BUN/Creatinine 132/4.[address] Melara Renal ultrasound pending IV fluid hydration Nephrology consulted, appreciate recommendations 4. Hypertension/GERD Continue home medications FEN N.p.o. Electrolytes: Monitor and replete as needed NS at 100 cc/hour Holding pharmacologic anticoagulation for active GI bleed
[2018-11-15] MEDS: Sod Chloride 0.9% Inj 1,000 ML IV.CONT SCH (23:56)
[2018-11-16] MEDS: Pantoprazole Inj 40 MG Vial IV.PUSH SCH ×2 (05:35→17:40)
[2018-11-16 07:00] LABS: Baso # (Auto) 0.1 th/mm3 (0.0-0.2); Eos # (Auto) 0.6 th/mm3 (0.0-0.4); Lymph # (Auto) 1.9 th/mm3 (1.0-4.8); Lymph % (Auto) 15.5 % (9.0-44.0); Mean Corpuscular HGB Conc 32.3 % (32.0-36.0); Mean Corpuscular Hemoglobin 28.2 pg (27.0-34.0); Mean Corpuscular Volume 87.6 fL (80.0-100.0); Mean Platelet Volume 8.4 fL (7.0-11.0); Mono # (Auto) 0.6 th/mm3 (0.0-0.9); Mono % (Auto) 4.4 % (0.0-8.0); Neut # (Auto) 9.2 th/mm3 (1.8-7.7); Neut % (Auto) 74.1 % (16.0-70.0); Platelet Count 353 th/mm3 (150-450); Red Cell Distribution Width 14.3 % (11.6-17.2); White Blood Count 12.5 th/mm3 (4.0-11.0)
[2018-11-16 07:17] LABS: Calcium 8.6 mg/dL (8.5-10.1); Carbon Dioxide 25.7 meq/L (21.0-32.0); Potassium 4.7 meq/L (3.5-5.1)
[2018-11-16] MEDS: Sod Chloride 0.9% Inj 1,000 ML IV.CONT SCH ×2 (08:45→21:00)
[2018-11-16] MEDS: Lipase/Protease/Amylase 12/38/60 DR Capsule PO SCH ×3 (08:45→17:40)
[2018-11-16] MEDS: Metoprolol Tartrate 25 MG Tablet PO SCH ×2 (08:45→21:00)
--- NOTE | 2018-11-16 08:45 | P.PNIM ---
Subjective Interval history: Patient in nad Complaints of pain and is asking for pain meds No n/v/d/c. No fever or chills Feels tired Physical Exam Vital signs: Last Vital Signs Temp 97.7 F 11/16/18 04:44 Pulse 82 11/16/18 04:44 Resp 18 11/16/18 04:44 BP 112/55 L 11/16/18 04:44 Pulse Ox 98 11/16/18 04:44 Intake & Output 11/14/18 11/15/18 11/16/18 11/17/18 06:59 06:59 06:59 06:59 Intake Total 1430 / 1430 Balance 1430 / 1430 Weight 58.2 kg Narrative: Gen.: Pleasant 82 yo female, appears in no acute distress Cardiovascular: Regular rate and rhythm. No murmurs, rubs or gallops. Respiratory: Lungs clear to auscultation bilaterally. No wheezes or rhonchi. Abdomen: Soft, nontender, nondistended. No peritoneal signs. GJ tube in place without signs of infection. Musculoskeletal: No gross deformities. No edema. Skin: No obvious rashes or erythema. Neuro: Alert and awake. No focal deficit. Sensory and motor grossly intact. Cranial nerves grossly intact. Results Labs CBC & Chem 7: 11/16/18 05:54 11/16/18 05:54 Imaging Imaging: Impressions Chest X-Ray 11/15/18 18:10 CONCLUSION: Subsegmental basilar airspace disease. No effusion or pneumothorax. Assessment and Plan Plan 1. Acute GI bleed Patient with bright red blood coming out her feeding tube and Hemoccult positive in the emergency department Transfuse 1 unit packed red blood cells for hemoglobin of 8.0 on admission , symptomatic Gastroenterology consulted, appreciate assistance IV Protonix 2. Chronic pancreatitis Patient with a long history of recurrent idiopathic pancreatitis for which she has been hospitalized many times History of biliary stent and GJ tube Continue home [place] 3. Acute renal failure in the setting of chronic kidney disease Patient with history of CKD stage III, baseline creatinine 2-3 BUN/Creatinine 132/4.[address] Melara Renal ultrasound pending IV fluid hydration Nephrology consulted, appreciate recommendations 4. Hypertension/GERD Continue home medications Physician deconditioning: Consult PT for gait training DVT ppx: Holding pharmacologic anticoagulation for active GI bleed Progress Note: Quality VTE Deep Vein Thrombosis/Pulmonary Embolism Present on Admission: No
[2018-11-16] MEDS ORDERED: Sucralfate 1 GM Tablet PO SCH (09:00)
--- NOTE | 2018-11-16 10:00 | ECG ---
Date Performed: 11/15/2018 Time Performed: 18:54:16 PTAGE: 82 years EKG: Sinus rhythm NORMAL ECG INTERPRETATION BASED ON A DEFAULT AGE OF 40 YEARS PREVIOUS TRACING : 07/28/2018 01.16 DOCTOR: Sanford Sales Interpretating Date/Time 11/16/2018 09:57:16
--- NOTE | 2018-11-16 11:20 | US ---
EXAM DATE: 11/16/2018 11:17 AM EST AGE/SEX: 82 years / Female INDICATIONS: Increased Bun and Creatinine. CLINICAL DATA: This is the patient's subsequent encounter. Patient reports that signs and symptoms h ave been present for 1 day and indicates a pain score of 0/10. MEDICAL/SURGICAL HISTORY: . CK. GJ tube placement. GERD. Blood transfusion reaction. HTN. Pancreatitis. . Left knee replacement. Cholecystectomy. ERCP. COMPARISON: [facility] – [place], CT ABDOMEN & PELVIS W/O CONTRAST, 07/28/2018. . MEASUREMENTS: Right Kidney:__7.2 x 5.0 x 4.1 cm Left Kidney:__6.3 x 2.9 x 3.2 cm FINDINGS: Right Kidney: Kidney is small and echogenic with a 1.9 cm cyst upper pole and 1.9 cm cyst lower pole. Left Kidney: Small echogenic without mass or hydronephrosis. 1.5 cm cyst upper pole Bladder: Within normal limits given the degree of distension. CONCLUSION: 1. Small echogenic kidneys without hydronephrosis or mass. Electronically signed by: Jamie Tabor MD Board Certified Radiologist 11/16/2018 11:19 AM EST
--- NOTE | 2018-11-16 12:16 | P.CONNP ---
<NikhilShreya - Last Filed: 11/16/18 15:32> History of Present Illness Service: Nephrology Consult date: 11/16/18 Requesting Physician: Guadalupe Basurto Reason for Consult: Acute on chronic kidney disease. Primary Care Provider: Hong Peterson MD History of Present Illness: Patient is a 82-year-old female with a past medical history significant for CKD stage III, chronic pancreatitis with GJ tube, hypertension and GERD previously on hospice, revoked so that the patient could receive full treatment in the hospital. Presents to the emergency department for evaluation of blood through her GJ tube. Nephrology is consulted for acute on chronic kidney disease with a creatinine of 4.66 which has improved from 4.82. Potassium level normal. Patient is incontinent to urine so unsure of urinary output. Baseline creatinine in 2.2 to 2.5. Renal ultrasound with small echogenic kidneys. Patient is soft spoken. Denies any shortness of breath, chest pain, or dysuria. Abdominal pain, poor appetite reported. In records patient has been taking Advil for pain. Review of Systems All other systems reviewed negative except as stated in HPI PMFSH - History History Provided By: Patient - Medical History Medical History: Medical History (Last Reviewed 11/15/18 @ 23:46 by Ashley Olivo RN) Anxiety CKD (chronic kidney disease) stage 3, GFR 30-59 ml/min Encounter for gastrojejunal (GJ) tube placement GERD (gastroesophageal reflux disease) Hx of blood transfusion reaction Hypertension Idiopathic pancreatitis Pancreatitis - Surgical History Surgical History: Surgical History (Last Reviewed 11/15/18 @ 23:46 by Ashley Olivo RN) History of total left knee replacement (TKR) Hx of cholecystectomy S/P ERCP - Family History Family History: Family History (Last Reviewed 11/15/18 @ 23:46 by Ashley Olivo RN) Other Has 1 child Has 1 living child - Tobacco History Second Hand Smoke Exposure: No Tobacco Use In Past 30 Days: No Smoking Status: Never smoker - Alcohol History How Often Do You Have a Drink Containing Alcohol: Never - Substance Use History Substance History: No History of Abuse - Immunization History Tetanus Immunization: Unsure Hx Influenza Vaccine This Season: Yes Medications and Allergies Allergies Allergy/AdvReac Type Severity Reaction Status Date / Time No Known Allergies Allergy Verified 11/15/18 23:46 Home Medications Medication Instructions Recorded Confirmed Type [id number] [Creon] 1 tab PO TIDPC 05/16/18 11/15/18 History magnesium hydroxide [Presley Milk 311 mg PO QID PRN 05/16/18 11/15/18 History of Magnesia] metoprolol tartrate 25 mg PO BID 05/16/18 11/15/18 History pantoprazole 40 mg PO BID 05/16/18 11/15/18 History sucralfate 1 g PO TID 05/16/18 11/15/18 History Active Medications: Active Medications Acetaminophen (Tylenol) 650 mg PO Q4H PRN PRN Reason: Temp > 100.4 Hydrocodone Bitart/Acetaminophen ([place] 5/325) 1 tab PO Q4H PRN PRN Reason: Pain Last Admin: 11/16/18 11:57 Dose: 1 tab Al Hydroxide/Mg Hydroxide (Milk Of Magnesia Liq) 30 ml PO Q12H PRN PRN Reason: Mild Constipation Lipase/Protease/Amylase (Mando Kapoor ) 1 cap PO TIDPC [facility] Last Admin: 11/16/18 08:45 Dose: 1 cap Bisacodyl (Dulcolax Supp) 10 mg RECTAL DAILY PRN PRN Reason: SEVERE CONSITIPATION Calcium Carbonate (Tums Chew) 500 mg CHEW BID [facility] Last Admin: 11/16/18 08:45 Dose: 500 mg Duloxetine HCl (Cymbalta) 20 mg PO DAILY [facility] Last Admin: 11/16/18 08:45 Dose: 20 mg Sodium Chloride (Ns Inj) 1,000 mls @ 100 mls/hr IV.CONT .Q10H [facility] Last Admin: 11/16/18 08:45 Dose: 100 mls/hr Lactulose (Lactulose Liq) 30 ml PO DAILY PRN PRN Reason: SEVERE CONSITIPATION Metoprolol Tartrate (Lopressor) 25 mg PO BID [facility] Last Admin: 11/16/18 08:45 Dose: 25 mg Nifedipine (Procardia Xl) 30 mg PO BID [facility] Last Admin: 11/16/18 08:45 Dose: 30 mg Ondansetron HCl (Zofran Inj) 4 mg IV.PUSH Q6H PRN PRN Reason: NAUSEA OR VOMITING Pantoprazole Sodium (Protonix Inj) 40 mg IV.PUSH Q12H [facility] Last Admin: 11/16/18 05:35 Dose: 40 mg Sennosides (Senokot) 17.2 mg PO Q12H PRN PRN Reason: Moderate Constipation Sodium Chloride (Ns Flush) 2 ml IV.FLUSH BID [facility] Last Admin: 11/16/18 08:45 Dose: Not Given Sodium Chloride (Ns Flush) 2 ml IV.FLUSH PRN PRN PRN Reason: FLUSH AFTER USING IV ACCESS Exam Vital signs: Vital Signs 11/15/18 18:09 11/15/18 22:14 11/15/18 22:36 Temperature 98 F 98.6 F 98.2 F Pulse Rate 76 78 78 Respiratory Rate 16 18 16 Blood Pressure 91/54 L 117/59 L 106/63 Pulse Oximetry 98 11/15/18 23:21 11/15/18 23:22 11/16/18 00:05 Temperature Pulse Rate 79 Respiratory Rate Blood Pressure 106/63 Pulse Oximetry 96 11/16/18 00:14 11/16/18 02:10 11/16/18 04:00 Temperature 98.1 F 97.5 F L Pulse Rate 76 81 78 Respiratory Rate 16 16 Blood Pressure 112/63 119/56 L Pulse Oximetry 99 98 11/16/18 04:44 11/16/18 08:00 Temperature 97.7 F 98.5 F Pulse Rate 82 88 Respiratory Rate 18 21 Blood Pressure 112/55 L 110/58 L Pulse Oximetry 98 97 Intake & Output 11/15/18 11/16/18 11/16/18 18:59 06:59 18:59 Intake Total 1430 / 1430 1000 / 1000 Balance 1430 / 1430 1000 / 1000 Weight 52.163 kg 58.2 kg Intake: IV 1000 / 1000 1000 / 1000 NS Inj 1,000 ML @ 100 mls/hr IV 1000 / 1000 .CONT .Q10H [facility] Rx#:[id number] NS Inj 1,000 ML @ Wide Open IV. 1000 / 1000 SIG BOLUS ONE Rx#:[id number] Oral 0 / 0 Other 30 Rbc As-3 Leukoreduced Unit [id number] Intake (Blood Product) Amt 400 / 400 Rbc As-3 Leukoreduced Unit 400 / 400 [id number] Other: Other Intake Source Rbc As-3 Leukoreduced Unit Saline Solution [id number] # Incontinent Voids 2 Date of Last Bowel Movement 11/15/18 11/15/18 # Bowel Movements 0 # Incontinent Bowel Movements 0 Weight On Admission 52.2 kg Narrative: Gen.: No acute distress. Alert and oriented. Soft spoken Head: Normocephalic. Atraumatic. Cardiovascular: Regular rate and rhythm. No murmurs, rubs or gallops. Respiratory: Lungs clear to auscultation bilaterally. No wheezes or rhonchi. Abdomen: Soft, nontender, nondistended. No peritoneal signs. GJ tube in place without signs of infection. Musculoskeletal: No gross deformities. No edema. Skin: No obvious rashes or erythema. Results - Lab Results 11/16/18 05:54 11/16/18 05:54 Most recent lab results Calcium 8.6 mg/dL (8.5-10.1) 11/16/18 05:54 Assessment and Plan - Assessment (1) Acute kidney injury Code(s): N17.9 - Acute kidney failure, unspecified Status: Acute Plan: Nephrology is consulted for acute on chronic kidney disease with a creatinine of 4.66 which has improved from 4.82. Baseline creatinine in 2.2 to 2.5. WAYNE possible prerenal vs ATN from poor intake and or NSAID use. Renal ultrasound with small echogenic kidneys. Avoid nephrotoxins including NSAIDs and IV contrast. Maintain accurate I+O. UA ordered. Creatinine improving, Recommend to continue IVF. Urine sodium and osmolarity ordered. Will monitor Urinary output and BMP. Labs in AM (2) Acute GI bleeding Code(s): K92.2 - Gastrointestinal hemorrhage, unspecified Status: Acute Plan: GI consult. Protonix. Plan for EGD <Samson Kennedy - Last Filed: 11/16/18 20:41> History of Present Illness Primary Care Provider: Hong Peterson MD [facility] - Medical History Medical History: Medical History (Last Reviewed 11/15/18 @ 23:46 by Ashley Olivo RN) Anxiety CKD (chronic kidney disease) stage 3, GFR 30-59 ml/min Encounter for gastrojejunal (GJ) tube placement GERD (gastroesophageal reflux disease) Hx of blood transfusion reaction Hypertension Idiopathic pancreatitis Pancreatitis - Surgical History Surgical History: Surgical History (Last Reviewed 11/15/18 @ 23:46 by Ashley Olivo RN) History of total left knee replacement (TKR) Hx of cholecystectomy S/P ERCP - Family History Family History: Family History (Last Reviewed 11/15/18 @ 23:46 by Ashley Olivo RN) Other Has 1 child Has 1 living child Medications and Allergies Active Medications: Active Medications Acetaminophen (Tylenol) 650 mg PO Q4H PRN PRN Reason: Temp > 100.4 Hydrocodone Bitart/Acetaminophen ([place] 5/325) 1 tab PO Q4H PRN PRN Reason: Pain Last Admin: 11/16/18 11:57 Dose: 1 tab Al Hydroxide/Mg Hydroxide (Milk Of Magnesia Liq) 30 ml PO Q12H PRN PRN Reason: Mild Constipation Lipase/Protease/Amylase (Mando Kapoor ) 1 cap PO TIDPC [facility] Last Admin: 11/16/18 17:40 Dose: 1 cap Bisacodyl (Dulcolax Supp) 10 mg RECTAL DAILY PRN PRN Reason: SEVERE CONSITIPATION Calcium Carbonate (Tums Chew) 500 mg CHEW BID [facility] Last Admin: 11/16/18 08:45 Dose: 500 mg Duloxetine HCl (Cymbalta) 20 mg PO DAILY [facility] Last Admin: 11/16/18 08:45 Dose: 20 mg Sodium Chloride (Ns Inj) 1,000 mls @ 100 mls/hr IV.CONT .Q10H [facility] Last Infusion: 11/16/18 18:45 Dose: Infused Lactulose (Lactulose Liq) 30 ml PO DAILY PRN PRN Reason: SEVERE CONSITIPATION Metoprolol Tartrate (Lopressor) 25 mg PO BID [facility] Last Admin: 11/16/18 08:45 Dose: 25 mg Nifedipine (Procardia Xl) 30 mg PO BID [facility] Last Admin: 11/16/18 08:45 Dose: 30 mg Ondansetron HCl (Zofran Inj) 4 mg IV.PUSH Q6H PRN PRN Reason: NAUSEA OR VOMITING Pantoprazole Sodium (Protonix Inj) 40 mg IV.PUSH Q12H [facility] Last Admin: 11/16/18 17:40 Dose: 40 mg Sennosides (Senokot) 17.2 mg PO Q12H PRN PRN Reason: Moderate Constipation Sodium Chloride (Ns Flush) 2 ml IV.FLUSH BID [facility] Last Admin: 11/16/18 08:45 Dose: Not Given Sodium Chloride (Ns Flush) 2 ml IV.FLUSH PRN PRN PRN Reason: FLUSH AFTER USING IV ACCESS Exam Vital signs: Vital Signs 11/15/18 22:14 11/15/18 22:36 11/15/18 23:21 Temperature 98.6 F 98.2 F Pulse Rate 78 78 Respiratory Rate 18 16 Blood Pressure 117/59 L 106/63 Pulse Oximetry 96 11/15/18 23:22 11/16/18 00:05 11/16/18 00:14 Temperature 98.1 F Pulse Rate 79 76 Respiratory Rate 16 Blood Pressure 106/63 112/63 Pulse Oximetry 99 11/16/18 02:10 11/16/18 04:00 11/16/18 04:44 Temperature 97.5 F L 97.7 F Pulse Rate 81 78 82 Respiratory Rate 16 18 Blood Pressure 119/56 L 112/55 L Pulse Oximetry 98 98 11/16/18 08:00 11/16/18 12:00 11/16/18 16:00 Temperature 98.5 F 98.2 F 98.4 F Pulse Rate 88 66 82 Respiratory Rate 21 20 20 Blood Pressure 110/58 L 106/56 L 118/58 L Pulse Oximetry 97 100 100 11/16/18 19:12 Temperature 97.9 F Pulse Rate 77 Respiratory Rate 17 Blood Pressure 133/58 L Pulse Oximetry 100 Intake & Output 11/16/18 11/16/18 11/17/18 06:59 18:59 06:59 Intake Total 1430 / 1430 2099 / 2100 Balance 1430 / 1430 2099 / 2100 Weight 58.2 kg Intake: IV 1000 / 1000 1999 NS Inj 1,000 ML @ 100 mls/hr IV 1999 .CONT .Q10H [facility] Rx#:[id number] NS Inj 1,000 ML @ Wide Open IV. 1000 / 1000 SIG BOLUS ONE Rx#:[id number] Oral 0 / 0 100 / 100 Other 30 30 Rbc As-3 Leukoreduced Unit [id number] Intake (Blood Product) Amt 400 / 400 Rbc As-3 Leukoreduced Unit 400 / 400 [id number] Other: Other Intake Source Rbc As-3 Leukoreduced Unit Saline Solution [id number] # Voids 2 # Incontinent Voids 2 Date of Last Bowel Movement 11/15/18 11/15/18 # Bowel Movements 0 1 # Incontinent Bowel Movements 0 Weight On Admission 52.2 kg Results - Lab Results 11/16/18 05:54 11/16/18 05:54 Most recent lab results Calcium 8.6 mg/dL (8.5-10.1) 11/16/18 05:54 Assessment and Plan - Assessment (1) Acute kidney injury Code(s): N17.9 - Acute kidney failure, unspecified Status: Acute Plan: Patient seen and examine, agree with above. Patient with Chronic kidney disease and develop WAYNE. Possibly pre renal, the work up as above. Continue IVF. (2) Acute GI bleeding Code(s): K92.2 - Gastrointestinal hemorrhage, unspecified Status: Acute
--- NOTE | 2018-11-16 14:17 | P.CONGI ---
History of Present Illness Consult date: 11/16/18 Consult reason: Anemia Positive occult stool with bleeding from GJ tube Chief complaint: Acute on Chronic Kidney Disease, GI Bleed History of Present Illness: Patient is an 82-year-old female with past medical history significant for chronic kidney disease, GERD, hypertension, pancreatitis and anxiety. Patient presented to [facility] emergency room for evaluation of bright red blood noted in GJ tube. Patient's granddaughter at bedside during consultation and endorses that patient was noted by caregiver to have bright red blood and feeding tube 2 days ago. Patient's granddaughter denies noticing dark or tarry stools. Patient denies nausea or vomiting or any significant abdominal discomfort. Of note, patient's granddaughter endorses that patient takes Advil 2-3 tablets 2-3 times daily for headache or generalized pain. Patient's granddaughter states that she has noticed on occasion, dark to black coffee- ground like material in gastric tubing portion of GJ tube. Patient denies hematemesis. Granddaughter endorses that patient was recently hospitalized at [facility] in [place] for ERCP. States she was then transferred to [facility] and then to [facility] rehab facility for the last 2 weeks. Our service has been consulted to evaluate patient for anemia with heme positive occult stool and bleeding from GJ tube Review of Systems All other systems reviewed negative except as stated in HPI PMFSH - History History Provided By: Patient, Family Member - Medical History Medical History: Medical History (Last Reviewed 11/15/18 @ 23:46 by Ashley Olivo RN) Anxiety CKD (chronic kidney disease) stage 3, GFR 30-59 ml/min Encounter for gastrojejunal (GJ) tube placement GERD (gastroesophageal reflux disease) Hx of blood transfusion reaction Hypertension Idiopathic pancreatitis Pancreatitis - Surgical History Surgical History: Surgical History (Last Reviewed 11/15/18 @ 23:46 by Ashley Olivo RN) History of total left knee replacement (TKR) Hx of cholecystectomy S/P ERCP - Family History Family History: Family History (Last Reviewed 11/15/18 @ 23:46 by Ashley Olivo RN) Other Has 1 child Has 1 living child - Tobacco History Second Hand Smoke Exposure: No Tobacco Use In Past 30 Days: No Smoking Status: Never smoker - Alcohol History How Often Do You Have a Drink Containing Alcohol: Never - Substance Use History Substance History: No History of Abuse - Immunization History Tetanus Immunization: Unsure Hx Influenza Vaccine This Season: Yes Medications and Allergies Active Medications: Active Medications Acetaminophen (Tylenol) 650 mg PO Q4H PRN PRN Reason: Temp > 100.4 Hydrocodone Bitart/Acetaminophen (Madison 5/325) 1 tab PO Q4H PRN PRN Reason: Pain Last Admin: 11/16/18 11:57 Dose: 1 tab Al Hydroxide/Mg Hydroxide (Milk Of Magnesia Liq) 30 ml PO Q12H PRN PRN Reason: Mild Constipation Lipase/Protease/Amylase (Mando Kapoor ) 1 cap PO TIDPC [facility] Last Admin: 11/16/18 08:45 Dose: 1 cap Bisacodyl (Dulcolax Supp) 10 mg RECTAL DAILY PRN PRN Reason: SEVERE CONSITIPATION Calcium Carbonate (Tums Chew) 500 mg CHEW BID [facility] Last Admin: 11/16/18 08:45 Dose: 500 mg Duloxetine HCl (Cymbalta) 20 mg PO DAILY [facility] Last Admin: 11/16/18 08:45 Dose: 20 mg Sodium Chloride (Ns Inj) 1,000 mls @ 100 mls/hr IV.CONT .Q10H [facility] Last Admin: 11/16/18 08:45 Dose: 100 mls/hr Lactulose (Lactulose Liq) 30 ml PO DAILY PRN PRN Reason: SEVERE CONSITIPATION Metoprolol Tartrate (Lopressor) 25 mg PO BID [facility] Last Admin: 11/16/18 08:45 Dose: 25 mg Nifedipine (Procardia Xl) 30 mg PO BID [facility] Last Admin: 11/16/18 08:45 Dose: 30 mg Ondansetron HCl (Zofran Inj) 4 mg IV.PUSH Q6H PRN PRN Reason: NAUSEA OR VOMITING Pantoprazole Sodium (Protonix Inj) 40 mg IV.PUSH Q12H [facility] Last Admin: 11/16/18 05:35 Dose: 40 mg Sennosides (Senokot) 17.2 mg PO Q12H PRN PRN Reason: Moderate Constipation Sodium Chloride (Ns Flush) 2 ml IV.FLUSH BID [facility] Last Admin: 11/16/18 08:45 Dose: Not Given Sodium Chloride (Ns Flush) 2 ml IV.FLUSH PRN PRN PRN Reason: FLUSH AFTER USING IV ACCESS Allergies Allergy/AdvReac Type Severity Reaction Status Date / Time No Known Allergies Allergy Verified 11/15/18 23:46 Home Medications Medication Instructions Recorded Confirmed Type [id number] [Creon] 1 tab PO TIDPC 05/16/18 11/15/18 History magnesium hydroxide [Presley Milk 311 mg PO QID PRN 05/16/18 11/15/18 History of Magnesia] metoprolol tartrate 25 mg PO BID 05/16/18 11/15/18 History pantoprazole 40 mg PO BID 05/16/18 11/15/18 History sucralfate 1 g PO TID 05/16/18 11/15/18 History Exam Vital signs: Vital Signs 11/15/18 18:09 11/15/18 22:14 11/15/18 22:36 Temperature 98 F 98.6 F 98.2 F Pulse Rate 76 78 78 Respiratory Rate 16 18 16 Blood Pressure 91/54 L 117/59 L 106/63 Pulse Oximetry 98 11/15/18 23:21 11/15/18 23:22 11/16/18 00:05 Temperature Pulse Rate 79 Respiratory Rate Blood Pressure 106/63 Pulse Oximetry 96 11/16/18 00:14 11/16/18 02:10 11/16/18 04:00 Temperature 98.1 F 97.5 F L Pulse Rate 76 81 78 Respiratory Rate 16 16 Blood Pressure 112/63 119/56 L Pulse Oximetry 99 98 11/16/18 04:44 11/16/18 08:00 11/16/18 12:00 Temperature 97.7 F 98.5 F 98.2 F Pulse Rate 82 88 66 Respiratory Rate 18 21 20 Blood Pressure 112/55 L 110/58 L 106/56 L Pulse Oximetry 98 97 100 Intake & Output 11/15/18 11/16/18 11/16/18 18:59 06:59 18:59 Intake Total 1430 / 1430 1000 / 1000 Balance 1430 / 1430 1000 / 1000 Weight 52.163 kg 58.2 kg Intake: IV 1000 / 1000 1000 / 1000 NS Inj 1,000 ML @ 100 mls/hr IV 1000 / 1000 .CONT .Q10H HITESH Rx#:[id number] NS Inj 1,000 ML @ Wide Open IV. 1000 / 1000 SIG BOLUS ONE Rx#:[id number] Oral 0 / 0 Other 30 / 30 Rbc As-3 Leukoreduced Unit [id number] Intake (Blood Product) Amt 400 / 400 Rbc As-3 Leukoreduced Unit 400 / 400 [id number] Other: Other Intake Source Rbc As-3 Leukoreduced Unit Saline Solution [id number] # Incontinent Voids 2 Date of Last Bowel Movement 11/15/18 11/15/18 # Bowel Movements 0 # Incontinent Bowel Movements 0 Weight On Admission 52.2 kg - Constitutional no acute distress, chronically ill appearing - Routine HEENT Exam Head: Present: normocephalic - Routine Respiratory Exam Present: CTA bilaterally. Absent: accessory muscle use - Routine Abdominal Exam Present: normoactive bowel sounds, ostomy. Absent: tenderness, distended, guarding, firm - Routine Extremities Exam Present: pulses intact. Absent: edema - Routine Skin Exam Present: dry, warm - Routine Neurological Exam Present: alert Results - Labs CBC & Chem 7: 11/16/18 05:54 11/16/18 05:54 Labs: Laboratory Results - last 24 hr 11/15/18 11/15/18 11/15/18 18:36 18:36 18:36 WBC 12.4 H RBC 2.77 L Hgb 8.0 L Hct 24.4 L MCV 88.1 MCH 29.0 MCHC 32.9 RDW 14.5 Plt Count 447 MPV 8.1 Neut % (Auto) 70.9 H Lymph % (Auto) 17.9 Carlton % (Auto) 4.6 Eos % (Auto) 5.5 H Baso % (Auto) 1.1 Neut # (Auto) 8.8 H Lymph # (Auto) 2.2 Carlton # (Auto) 0.6 Eos # (Auto) 0.7 H Baso # (Auto) 0.1 WBC Differential . Differential Comment Auto diff final PT 11.9 H INR 1.2 APTT 31.1 Sodium 138 Potassium 4.7 Chloride 101 Carbon Dioxide 28.3 Anion Gap 9 BUN 132 H Creatinine 4.82 H Estimated GFR 10 L Random Glucose 101 Calcium 9.1 Total Bilirubin 0.2 AST 26 ALT 34 Alkaline Phosphatase 144 H Troponin I Less than 0.02 L Total Protein 8.5 H Albumin 2.5 L Lipase 111 Blood Type Antibody Screen MTS Gel Crossmatch Bld Prod Order Comment 11/15/18 11/15/1819 18:36 19:44 05:54 WBC 12.5 H RBC 3.20 L Hgb 9.0 L Hct 28.0 L MCV 87.6 MCH 28.2 MCHC 32.3 RDW 14.3 Plt Count 353 MPV 8.4 Neut % (Auto) 74.1 H Lymph % (Auto) 15.5 Carlton % (Auto) 4.4 Eos % (Auto) 5.0 H Baso % (Auto) 1.0 Neut # (Auto) 9.2 H Lymph # (Auto) 1.9 Carlton # (Auto) 0.6 Eos # (Auto) 0.6 H Baso # (Auto) 0.1 WBC Differential . Differential Comment Auto diff final PT INR APTT Sodium Potassium Chloride Carbon Dioxide Anion Gap BUN Creatinine Estimated GFR Random Glucose Calcium Total Bilirubin AST ALT Alkaline Phosphatase Troponin I Total Protein Albumin Lipase Blood Type B Positive Antibody Screen Negative MTS Gel Crossmatch See Detail Bld Prod Order Comment 11/16/18 05:54 WBC RBC Hgb Hct MCV MCH MCHC RDW Plt Count MPV Neut % (Auto) Lymph % (Auto) Carlton % (Auto) Eos % (Auto) Baso % (Auto) Neut # (Auto) Lymph # (Auto) Carlton # (Auto) Eos # (Auto) Baso # (Auto) WBC Differential Differential Comment PT INR APTT Sodium 139 Potassium 4.7 Chloride 105 Carbon Dioxide 25.7 Anion Gap 8 BUN 122 H Creatinine 4.66 H Estimated GFR 11 L Random Glucose 88 Calcium 8.6 Total Bilirubin AST ALT Alkaline Phosphatase Troponin I Total Protein Albumin Lipase Blood Type Antibody Screen MTS Gel Crossmatch Bld Prod Order Comment - Imaging Impressions Chest X-Ray 11/15/18 18:10 CONCLUSION: Subsegmental basilar airspace disease. No effusion or pneumothorax. Abdomen/Bladder Ultrasound 11/16/18 00:00 CONCLUSION: 1. Small echogenic kidneys without hydronephrosis or mass. Assessment and Plan (1) Anemia Status: Chronic Code(s): D64.9 - Anemia, unspecified (2) Acute GI bleeding Status: Acute Code(s): K92.2 - Gastrointestinal hemorrhage, unspecified - Plan Patient is an 82-year-old female with past medical history significant for chronic kidney disease, GERD, hypertension, pancreatitis and anxiety. Patient presented to [facility] emergency room for evaluation of bright red blood noted in GJ tube. Patient's granddaughter at bedside during consultation and endorses that patient was noted by caregiver to have bright red blood and feeding tube 2 days ago. Patient's granddaughter denies noticing dark or tarry stools. Patient denies nausea or vomiting or any significant abdominal discomfort. Of note, patient's granddaughter endorses that patient takes Advil 2-3 tablets 2-3 times daily for headache or generalized pain. Patient's granddaughter states that she has noticed on occasion, dark to black coffee- ground like material in gastric tubing portion of GJ tube. Patient denies hematemesis. Granddaughter endorses that patient was recently hospitalized at [facility] in [place] for ERCP. States she was then transferred to [facility] and then to [facility] rehab facility for the last 2 weeks. Our service has been consulted to evaluate patient for anemia with heme positive occult stool and bleeding from GJ tube Anemia Heme positive occult stool Bleeding from GJ tube-possibly NSAID induced Patient presents to emergency room for evaluation of bright red blood noted in GJ tube. Possible black tarry stools reported ( unknown to patients granddaughter) . Patient denies nausea or vomiting or any abdominal discomfort. Of note, granddaughter reports patient takes 2-3 tablets of Advil 2 -3 times daily for headache or generalized pain. She also reports noticing coffee-ground like material in gastric portion of GJ tube. -11/15/2018 hemoglobin 8.0 hematocrit 24.0 INR 1.2 total bilirubin 0.2 AST 26 ALT 34 alk phos 144 lipase 111 -11/16/2018 hemoglobin 9.0 hematocrit 28.0-post transfusion 1 unit packed RBCs creatinine 4.66 GFR 11 11/16/2018 ultrasound abdomen and bladder-Small echogenic kidneys without hydronephrosis or mass Plan -N.p.o.-EGD in a.m. -IV hydration -Monitor hemoglobin hematocrit -Transfuse as needed -Avoid anticoagulants or NSAIDs -Antiemetics as per attending -Pantoprazole 40 mg IV push every 12 hours -Obtain consent for EGD -Supportive care -Further recommendations to follow This patient has been seen by myself and Dr. Musa and this note is written on his behalf - Attending Attestation Dr. Musa (1) Anemia Qualifiers: Anemia type: unspecified type Qualified Code(s): D64.9 - Anemia, unspecified
[2018-11-17 03:06] LABS: Bacteria,Urine Rare /hpf; Bilirubin,Urine Negative (Negative); Clarity,Urine Cloudy (Clear); Color,Urine Yellow (Yellw/Straw); Glucose,Urine (UA) Negative (Negative); Leukocyte Esterase,Urine Large (Negative); Nitrite,Urine Negative (Negative); Specific Gravity,Urine 1.008 (1.002-1.035)
[2018-11-17] MEDS: Pantoprazole Inj 40 MG Vial IV.PUSH SCH ×2 (06:08→18:24)
[2018-11-17] MEDS: Sod Chloride 0.9% Inj 1,000 ML IV.CONT SCH ×2 (06:09→17:34)
[2018-11-17] MEDS ORDERED: Chlorhexidine Gluconate 2% 1 Pack (2 Cloths) TOPICAL ONE (10:57)
[2018-11-17] MEDS ORDERED: Metoprolol Tartrate 25 MG Tablet PO ONE (10:57)
[2018-11-17] MEDS ORDERED: Sodium Chlor 0.9% Inj 500 ML IV.SIG ONE (11:00)
--- NOTE | 2018-11-17 12:11 | GIPROC ---
[facility] [address] [facility]. [facility], [address] EGD PROCEDURE REPORT EXAM DATE: 11/17/2018 PATIENT NAME: Park Larsen MR #: [id number] BIRTHDATE: 1935 ATTENDING: Jelly Lino MD ORDER #: [id number] RAMP LEAD: Guadalupe Gary Pena, Gabriela, and Bettye Serrano STATUS: inpatient INDICATIONS: The patient is a 82 yr old female here for an EGD due to hematemesis PROCEDURE PERFORMED: EGD w/ biopsy MEDICATIONS: Per Anesthesia and None. TOPICAL ANESTHETIC: none CONSENT: The patient understands the risks and benefits of the procedure and understands that these risks include, but are not limited to: sedation, allergic reaction, infection, perforation and/or bleeding. Alternative means of evaluation and treatment include, among others: physical exam, x-rays, and/or surgical intervention. The patient elects to proceed with this endoscopic procedure. medical equipment was checked for proper function. Hand hygiene and appropriate measures for infection prevention was taken. After the risks, benefits and alternatives of the procedure were thoroughly explained, Informed consent was verified, confirmed and timeout was successfully executed by the treatment team. The patient was anesthetized with topical anesthesia and the Pentax [id number] endoscope was introduced through the mouth and advanced to the second portion of the duodenum. Retroflexion was performed and was normal The gastroscope was then slowly withdrawn and removed. ESOPHAGUS: The mucosa of the esophagus appeared normal. A medium sized hiatal hernia was noted. STOMACH: A gastroenterostomy was found on the greater curve of the stomach characterized as healthy in appearance. A medium sized non-bleeding, round, shallow and clean-based ulcer was found at the pylorus. Biopsies were taken at edge of the ulcer and at the center of the ulcer. DUODENUM: The duodenal mucosa appeared normal in the duodenal bulb and 2nd part duodenum. ADVERSE EVENTS: There were no complications. IMPRESSIONS: 1. The esophagus appeared normal 2. Medium sized hiatal hernia 3. Gastroenterostomy was found on the greater curve of the stomach 4. Medium sized ulcer was found at the pylorus; biopsies were taken 5. Normal duodenal mucosa in the duodenal bulb and 2nd part duodenum 6. Retroflexion was performed and was normal RECOMMENDATIONS: 1. Continue PPI 2. Await biopsy results. Biopsy results will not be ready for 7-10 days. If you don't hear from us in two weeks, call our office for biopsy results. PATIENT CONDITION: stable DISPOSITION: Observation REPEAT EXAM: Return as needed for EGD Jelly Lino MD eSigned: Jelly Lino MD 11/17/2018 12:10 PM cc: PATIENT NAME: Park Larsen MR#: [id number]
--- NOTE | 2018-11-17 12:43 | P.PNIM ---
Subjective Interval history: With some nausea after the procedure. Did not vomit. Advance diet per GI recommendations. No fever or chills Had a BM No pain at this time. Physical Exam Vital signs: Last Vital Signs Temp 98.6 F 11/17/18 12:18 Pulse 81 11/17/18 12:25 Resp 16 11/17/18 12:25 BP 120/66 11/17/18 12:25 Pulse Ox 97 11/17/18 12:25 Intake & Output 11/15/18 11/16/18 11/17/18 11/18/18 06:59 06:59 06:59 06:59 Intake Total 1430 / 1430 3100 / 3100 100 / 100 Balance 1430 / 1430 3100 / 3100 100 / 100 Weight 58.2 kg 62.8 kg Narrative: Gen.: Pleasant 82 yo female. Alert and oriented. Soft spoken Head: Normocephalic. Atraumatic. Cardiovascular: Regular rate and rhythm. No murmurs, rubs or gallops. Respiratory: Lungs clear to auscultation bilaterally. No wheezes or rhonchi. Abdomen: Soft, nontender, nondistended. No peritoneal signs. GJ tube in place without signs of infection. Musculoskeletal: No gross deformities. No edema. Skin: No obvious rashes or erythema. Results Labs CBC & Chem 7: 11/16/18 05:54 11/16/18 05:54 Assessment and Plan (1) Anemia: Code(s): D64.9 - Anemia, unspecified Status: Chronic (2) Acute GI bleeding: Code(s): K92.2 - Gastrointestinal hemorrhage, unspecified Status: Acute Plan 1. Acute GI bleed Pyloric medium size ulcer seen by EGD Patient with bright red blood coming out her feeding tube and Hemoccult positive in the emergency department Transfuse 1 unit packed red blood cells for hemoglobin of 8.0 on admission , symptomatic Gastroenterology consulted, appreciate assistance. S/O EGD IV Protonix, continue PPI. Patient to have results of biopsy and review as OP with GI 2. Chronic pancreatitis Patient with a long history of recurrent idiopathic pancreatitis for which she has been hospitalized many times History of biliary stent and GJ tube Continue home [place] 3. Acute renal failure in the setting of chronic kidney disease Patient with history of CKD stage III, baseline creatinine 2-3 BUN/Creatinine 132/4.[address] Melara Renal ultrasound pending IV fluid hydration Nephrology consulted, appreciate recommendations 4. Hypertension/GERD Continue home medications Physician deconditioning: Consult PT for gait training DVT ppx: Holding pharmacologic anticoagulation for active GI bleed Progress Note: Quality VTE Deep Vein Thrombosis/Pulmonary Embolism Present on Admission: No _ (1) Anemia Qualifiers: Anemia type: unspecified type Bone marrow failure anemia type: Chronic kidney disease stage: Folate deficiency anemia type: Hemolytic anemia type: Iron deficiency anemia type: Other causes of anemia: Vitamin B12 deficiency anemia type: Qualified Code(s): D64.9 - Anemia, unspecified
[2018-11-17] MEDS: Lipase/Protease/Amylase 12/38/60 DR Capsule PO SCH ×3 (12:56→18:24)
[2018-11-17] MEDS: Metoprolol Tartrate 25 MG Tablet PO SCH ×2 (12:58→21:12)
--- NOTE | 2018-11-17 21:10 | P.PNNP ---
Subjective Interval history: Patient is alert, not in distress. Physical Exam Vital signs: Vital Signs 11/16/18 23:45 11/17/18 03:03 11/17/18 08:00 Temperature 97.9 F 98.2 F Pulse Rate 71 69 Respiratory Rate 17 17 Blood Pressure 121/63 111/55 L Pulse Oximetry 96 98 96 11/17/18 09:04 11/17/18 12:18 11/17/18 12:25 Temperature 97.8 F 98.6 F Pulse Rate 73 78 81 Respiratory Rate 19 16 16 Blood Pressure 123/70 117/63 120/66 Pulse Oximetry 98 97 97 11/17/18 12:35 11/17/18 15:32 11/17/18 19:10 Temperature 97.8 F 97.7 F 98.1 F Pulse Rate 77 86 82 Respiratory Rate 19 18 18 Blood Pressure 140/70 126/64 118/59 L Pulse Oximetry 96 98 95 Intake & Output 11/17/18 11/17/18 11/18/18 06:59 18:59 06:59 Intake Total 1000 / 1000 1820 / 1820 Balance 1000 / 1000 1820 / 1820 Weight 62.8 kg Intake: IV 1000 / 1000 1000 / 1000 NS Inj 1,000 ML @ 100 mls/hr IV 1000 / 1000 1000 / 1000 .CONT .Q10H HITESH Rx#:[id number] Oral 0 / 0 720 / 720 Anesthesia Amount 100 / 100 Other: # Voids 1 # Incontinent Voids 3 # Urine Diapers 2 Date of Last Bowel Movement 11/15/18 11/17/18 # Bowel Movements 0 1 Narrative: Gen.: No acute distress. Alert and oriented. Soft spoken Head: Normocephalic. Atraumatic. Cardiovascular: Regular rate and rhythm. No murmurs, rubs or gallops. Respiratory: Lungs clear to auscultation bilaterally. No wheezes or rhonchi. Abdomen: Soft, nontender, nondistended. No peritoneal signs. GJ tube in place without signs of infection. Musculoskeletal: No gross deformities. No edema. Skin: No obvious rashes or erythema. Assessment and Plan - Assessment (1) Acute kidney injury Code(s): N17.9 - Acute kidney failure, unspecified Status: Acute Plan: Patient with Chronic kidney disease and develop WAYNE. Possibly pre renal, or ATN. Continue IVF. Avoid Nephrotoxins, follow the urine out put and BMP. (2) Acute GI bleeding Code(s): K92.2 - Gastrointestinal hemorrhage, unspecified Status: Acute Plan: GI consult. Protonix. Plan for EGD
[2018-11-18] MEDS: Sod Chloride 0.9% Inj 1,000 ML IV.CONT SCH ×3 (00:13→11:33)
[2018-11-18] MEDS: Pantoprazole Inj 40 MG Vial IV.PUSH SCH ×3 (06:14→18:27)
[2018-11-18] MEDS: Metoprolol Tartrate 25 MG Tablet PO SCH ×2 (08:48→21:51)
[2018-11-18] MEDS: Lipase/Protease/Amylase 12/38/60 DR Capsule PO SCH ×3 (08:48→17:45)
[2018-11-18 09:19] LABS: Baso # (Auto) 0.1 th/mm3 (0.0-0.2); Baso % (Auto) 0.5 % (0.0-2.0); Eos # (Auto) 0.4 th/mm3 (0.0-0.4); Eos % (Auto) 2.1 % (0.0-4.0); Hematocrit 26.9 % (35.0-46.0); Hemoglobin 8.9 gm/dL (11.6-15.3); Lymph % (Auto) 4.9 % (9.0-44.0); Mean Corpuscular Hemoglobin 28.9 pg (27.0-34.0); Mean Corpuscular Volume 87.4 fL (80.0-100.0); Mean Platelet Volume 8.3 fL (7.0-11.0); Mono # (Auto) 0.9 th/mm3 (0.0-0.9); Mono % (Auto) 4.2 % (0.0-8.0); Neut # (Auto) 18.5 th/mm3 (1.8-7.7); Neut % (Auto) 88.3 % (16.0-70.0); Platelet Count 310 th/mm3 (150-450); Red Blood Count 3.08 mil/mm3 (4.00-5.30); Red Cell Distribution Width 13.7 % (11.6-17.2)
[2018-11-18 09:49] LABS: Albumin 2.3 g/dL (3.4-5.0); Calcium 8.6 mg/dL (8.5-10.1); Carbon Dioxide 21.9 meq/L (21.0-32.0); Phosphorus 4.3 mg/dL (2.5-4.9)
[2018-11-18 09:50] LABS: Potassium 4.6 meq/L (3.5-5.1)
--- NOTE | 2018-11-18 11:46 | P.PNNP ---
Subjective Interval history: Resting, reports having a headache. Abdominal tenderness noted on palpation. Denies any shortness of breath, chest pain, or dysuria. Nausea, headache, and abdominal pain. <CatalinoelenaShreya - Last Filed: 11/18/18 11:40> Physical Exam Vital signs: Vital Signs 11/17/18 12:18 11/17/18 12:25 11/17/18 12:35 Temperature 98.6 F 97.8 F Pulse Rate 78 81 77 Respiratory Rate 16 16 19 Blood Pressure 117/63 120/66 140/70 Pulse Oximetry 97 97 96 11/17/18 15:32 11/17/18 19:10 11/17/18 20:00 Temperature 97.7 F 98.1 F Pulse Rate 86 82 89 Respiratory Rate 18 18 Blood Pressure 126/64 118/59 L Pulse Oximetry 98 95 11/17/18 23:43 11/17/18 23:50 11/18/18 04:02 Temperature 98.0 F Pulse Rate 86 90 82 Respiratory Rate 17 Blood Pressure 144/70 H Pulse Oximetry 97 11/18/18 04:14 11/18/18 08:34 Temperature 98.1 F 98.1 F Pulse Rate 85 85 Respiratory Rate 18 19 Blood Pressure 117/61 114/57 L Pulse Oximetry 96 99 Intake & Output 11/17/18 11/18/18 11/18/18 18:59 06:59 18:59 Intake Total 1820 / 1820 2611 / 2611 Balance 1820 / 1820 2611 / 2611 Weight 62.8 kg Intake: IV 1000 / 1000 1687 / 1687 NS Inj 1,000 ML @ 100 mls/hr IV 1000 / 1000 1187 / 1187 .CONT .Q10H HITESH Rx#:[id number] NS Inj 500 ML @ 30 mls/hr IV. 500 / 500 SIG .Q10H ONE Rx#:[id number] Oral 720 / 720 360 / 360 Tube Feeding 564 / 564 Anesthesia Amount 100 / 100 Other: # Voids 1 # Incontinent Voids 5 # Urine Diapers 2 Date of Last Bowel Movement 11/17/18 11/17/18 # Bowel Movements 1 1 Narrative: Gen.: Pleasant 82 yo female. Alert and oriented. Soft spoken Head: Normocephalic. Atraumatic. Cardiovascular: Regular rate and rhythm. No murmurs, rubs or gallops. Respiratory: Lungs clear to auscultation bilaterally. No wheezes or rhonchi. Abdomen: Soft, nontender, nondistended. No peritoneal signs. GJ tube in place without signs of infection. Musculoskeletal: No gross deformities. No edema. Skin: No obvious rashes or erythema. <Shreya Tejeda - Last Filed: 11/18/18 11:40> Vital signs: Vital Signs 11/17/18 23:43 11/17/18 23:50 11/18/18 04:02 Temperature 98.0 F Pulse Rate 86 90 82 Respiratory Rate 17 Blood Pressure 144/70 H Pulse Oximetry 97 11/18/18 04:14 11/18/18 08:34 11/18/18 12:51 Temperature 98.1 F 98.1 F 97.8 F Pulse Rate 85 85 85 Respiratory Rate 18 19 19 Blood Pressure 117/61 114/57 L 130/65 Pulse Oximetry 96 99 99 11/18/18 16:21 Temperature 98.3 F Pulse Rate 87 Respiratory Rate 19 Blood Pressure 122/61 Pulse Oximetry 97 Intake & Output 11/18/18 11/18/18 11/19/18 06:59 18:59 06:59 Intake Total 2611 / 2611 2012 Balance 2611 / 2611 2012 Weight 62.8 kg Intake: IV 1687 / 1687 813 / 813 NS Inj 1,000 ML @ 100 mls/hr IV 1187 / 1187 813 / 813 .CONT .Q10H HITESH Rx#:[id number] NS Inj 500 ML @ 30 mls/hr IV. 500 / 500 SIG .Q10H ONE Rx#:[id number] Oral 360 / 360 1200 / 1200 Tube Feeding 564 / 564 Other: # Incontinent Voids 5 # Urine Diapers 6 Date of Last Bowel Movement 11/17/18 11/18/18 # Bowel Movements 1 1 <Samson Kennedy - Last Filed: 11/18/18 20:30> Assessment and Plan - Assessment (1) Acute kidney injury Code(s): N17.9 - Acute kidney failure, unspecified Status: Acute Plan: Acute on chronic kidney disease with a creatinine of 4.66 which has improved from 4.82 on day of consult Baseline creatinine in 2.2 to 2.5. WAYNE possible prerenal vs ATN from poor intake and or NSAID use. Renal ultrasound with small echogenic kidneys. Avoid nephrotoxins including NSAIDs and IV contrast. Maintain accurate I+O. Creatinine improving at 3.81, Recommend to continue IVF until patient is taking adequate intake. Will monitor Urinary output and BMP. Labs in AM (2) Acute GI bleeding Code(s): K92.2 - Gastrointestinal hemorrhage, unspecified Status: Acute Plan: GI consult. Protonix. S/P EGD HGB stable at 8.9. Will order Iron panel, may benefit from procrit. <Shreya Tejeda - Last Filed: 11/18/18 11:40> - Assessment (1) Acute kidney injury Code(s): N17.9 - Acute kidney failure, unspecified Status: Acute Plan: Patient seen and examined, agree with above. Patient with chronic kidney disease and develop WAYNE. Continue IVF, Creatinine is improving. (2) Acute GI bleeding Code(s): K92.2 - Gastrointestinal hemorrhage, unspecified Status: Acute <Samson Kennedy - Last Filed: 11/18/18 20:30>
--- NOTE | 2018-11-18 13:24 | P.DIET ---
Nutritional Evaluation Type of nutrition evaluation: initial Nutrition consult regarding: Tube Feeding Screening comments: 11/18/18 TF review Objective - Diagnosis acute on CKD, GI bleed - Objective Body Mass Index: 23.8 % IBW: 115 (IBW = 120lb) Body Weight Used for Calculations: Actual (62.8kg) Energy Needs - Lower Range (kCal/kg): 25 Energy Needs - Upper Range (kCal/kg): 30 Lower Limit kCal/kg (kCals): 1,570 Upper Limit kCal/kg (kCals): 1,884 Lower Limit Protein Factor (Grams per Kg): 0.8 Upper Limit Protein Factor (Grams per Kg): 1.0 Lower Protein Needs (Protein): 50 Upper Protein Needs (Protein): 63 Dietitian Reviewed in Medical Record: Curent medications, Intake & Output, Labs , Medical history, Tube feeding Diet Order: NPO Objective Comments: PMH: CKD, GERD, HTN, idiopathic pancreatitis Labs: BUN 84, Cr 3.81, estGFR 14, random glucose 101 88 156 LBM 11/17/18 Assessment Assessment: Pt admitted for GI bleed from GJ tube w/ acute on CKD. Pt s/p EGD 11/17/18 and results pending for biopsy in 7-10 days. Pt currently receiving TF'ing of Nepro 1.8 @ 45mL/hr via GJ tube. RD to recommend TF'ing Suplena 1.8 @ 40mL/hr w/ Beneprotein 1-pkt BID to provide 1778kcal, 55g of protein, and 708mL of free water to best meet pts nutritional needs. Continue to monitor TF tolerance, renal, glucose labs. Labs reviewed, dietitian following. Recommendations: 1. RD to recommend TF'ing Suplena 1.8 @ 40mL/hr w/ Beneprotein 1-pkt BID to best meet pts nutritional needs 2. Continue to monitor TF tolerance, renal, glucose labs 3. Dietitian following Dietitian to Monitor: Lab values, Renal labs, Glucose level, Intake & Output, Tube feeding tolerance, Weight change, Medical course
--- NOTE | 2018-11-18 15:14 | P.PNGI ---
Subjective Interval history: Patient laying supine in bed Denies abdominal pain Post EGD <Nani Yuen - Last Filed: 11/18/18 15:06> Physical Exam Vital signs: Vital Signs 11/17/18 15:32 11/17/18 19:10 11/17/18 20:00 Temperature 97.7 F 98.1 F Pulse Rate 86 82 89 Respiratory Rate 18 18 Blood Pressure 126/64 118/59 L Pulse Oximetry 98 95 11/17/18 23:43 11/17/18 23:50 11/18/18 04:02 Temperature 98.0 F Pulse Rate 86 90 82 Respiratory Rate 17 Blood Pressure 144/70 H Pulse Oximetry 97 11/18/18 04:14 11/18/18 08:34 11/18/18 12:51 Temperature 98.1 F 98.1 F 97.8 F Pulse Rate 85 85 85 Respiratory Rate 18 19 19 Blood Pressure 117/61 114/57 L 130/65 Pulse Oximetry 96 99 99 Intake & Output 11/17/18 11/18/18 11/18/18 18:59 06:59 18:59 Intake Total 1820 / 1820 2611 / 2611 Balance 1820 / 1820 2611 / 2611 Weight 62.8 kg Intake: IV 1000 / 1000 1687 / 1687 NS Inj 1,000 ML @ 100 mls/hr IV 1000 / 1000 1187 / 1187 .CONT .Q10H [facility] Rx#:[id number] NS Inj 500 ML @ 30 mls/hr IV. 500 / 500 SIG .Q10H ONE Rx#:[id number] Oral 720 / 720 360 / 360 Tube Feeding 564 / 564 Anesthesia Amount 100 / 100 Other: # Voids 1 # Incontinent Voids 5 # Urine Diapers 2 Date of Last Bowel Movement 11/17/18 11/17/18 # Bowel Movements 1 1 - Constitutional no acute distress, chronically ill appearing - Routine HEENT Exam Head: Present: normocephalic - Routine Respiratory Exam Present: CTA bilaterally - Routine Cardiovascular Exam Present: RRR - Routine Abdominal Exam Present: soft, normoactive bowel sounds, ostomy. Absent: distended, firm - Routine Skin Exam Present: dry, warm - Routine Neurological Exam Present: alert, oriented X3 <Nani Yuen - Last Filed: 11/18/18 15:06> Vital signs: Vital Signs 11/20/18 12:00 11/20/18 16:00 11/20/18 18:47 Temperature 97.5 F L 97.8 F Pulse Rate 103 H 109 H Respiratory Rate 16 14 17 Blood Pressure 169/76 H 157/78 H Pulse Oximetry 100 96 11/20/18 19:34 11/20/18 20:00 11/21/18 00:18 Temperature 98.1 F 98.5 F Pulse Rate 112 H 114 H Respiratory Rate 18 18 17 Blood Pressure 157/80 H 137/76 Pulse Oximetry 100 99 11/21/18 04:03 Temperature 98.1 F Pulse Rate 107 H Respiratory Rate 16 Blood Pressure 151/78 H Pulse Oximetry 99 Intake & Output 11/20/18 11/21/18 11/21/18 18:59 06:59 18:59 Intake Total 813 / 813 1300 / 1300 1000 / 1000 Balance 813 / 813 1300 / 1300 1000 / 1000 Weight 60.8 kg Intake: IV 813 / 813 1000 / 1000 1000 / 1000 NS Inj 1,000 ML @ 100 mls/hr IV 813 / 813 1000 / 1000 1000 / 1000 .CONT .Q10H [facility] Rx#:[id number] Oral 300 / 300 Other: # Voids 1 4 Date of Last Bowel Movement 11/20/18 11/20/18 # Bowel Movements 0 <Jelly Lino A - Last Filed: 11/21/18 11:17> Results - Labs CBC & Chem 7: 11/18/18 08:27 11/18/18 08:27 Laboratory Results - last 24 hr 11/18/18 11/18/18 08:27 08:27 WBC 21.0 H RBC 3.08 L Hgb 8.9 L Hct 26.9 L MCV 87.4 MCH 28.9 MCHC 33.0 RDW 13.7 Plt Count 310 MPV 8.3 Neut % (Auto) 88.3 H Lymph % (Auto) 4.9 L Millard % (Auto) 4.2 Eos % (Auto) 2.1 Baso % (Auto) 0.5 Neut # (Auto) 18.5 H Lymph # (Auto) 1.0 Millard # (Auto) 0.9 Eos # (Auto) 0.4 Baso # (Auto) 0.1 WBC Differential . Differential Comment Auto diff final Sodium 145 Potassium 4.6 Chloride 114 H Carbon Dioxide 21.9 Anion Gap 9 BUN 84 H Creatinine 3.81 H Estimated GFR 14 L Random Glucose 156 H Calcium 8.6 Phosphorus 4.3 Albumin 2.3 L Microbiology 11/17/18 02:30 Clean Catch Urine Urine Culture - Final 10-50,000 cfu/mL mixed ev (probable contaminants) <Nani Yuen - Last Filed: 11/18/18 15:06> - Labs CBC & Chem 7: 11/20/18 04:27 11/21/18 08:35 Laboratory Results - last 24 hr 11/21/18 08:35 Sodium 145 Potassium 4.2 Chloride 116 H Carbon Dioxide 20.3 L Anion Gap 9 BUN 57 H Creatinine 2.92 H Estimated GFR 19 L Random Glucose 133 H Calcium 9.2 <Jelly Lino - Last Filed: 11/21/18 11:17> Assessment and Plan (1) Anemia Status: Chronic Code(s): D64.9 - Anemia, unspecified (2) Acute GI bleeding Status: Acute Code(s): K92.2 - Gastrointestinal hemorrhage, unspecified - Plan Patient is an 82-year-old female with past medical history significant for chronic kidney disease, GERD, hypertension, pancreatitis and anxiety. Patient presented to [facility] emergency room for evaluation of bright red blood noted in GJ tube. Patient's granddaughter at bedside during consultation and endorses that patient was noted by caregiver to have bright red blood and feeding tube 2 days ago. Patient's granddaughter denies noticing dark or tarry stools. Patient denies nausea or vomiting or any significant abdominal discomfort. Of note, patient's granddaughter endorses that patient takes Advil 2-3 tablets 2-3 times daily for headache or generalized pain. Patient's granddaughter states that she has noticed on occasion, dark to black coffee- ground like material in gastric tubing portion of GJ tube. Patient denies hematemesis. Granddaughter endorses that patient was recently hospitalized at [facility] in [place] for ERCP. States she was then transferred to [facility] and then to [facility] rehab facility for the last 2 weeks. Our service has been consulted to evaluate patient for anemia with heme positive occult stool and bleeding from GJ tube Anemia Heme positive occult stool Bleeding from GJ tube-possibly NSAID induced Patient presents to emergency room for evaluation of bright red blood noted in GJ tube. Possible black tarry stools reported ( unknown to patients granddaughter) . Patient denies nausea or vomiting or any abdominal discomfort. Of note, granddaughter reports patient takes 2-3 tablets of Advil 2 -3 times daily for headache or generalized pain. She also reports noticing coffee-ground like material in gastric portion of GJ tube. -11/15/2018 hemoglobin 8.0 hematocrit 24.0 INR 1.2 total bilirubin 0.2 AST 26 ALT 34 alk phos 144 lipase 111 -11/16/2018 hemoglobin 9.0 hematocrit 28.0-post transfusion 1 unit packed RBCs creatinine 4.66 GFR 11 11/16/2018 ultrasound abdomen and bladder-Small echogenic kidneys without hydronephrosis or mass 11/18/2018 Patient denies nausea vomiting or abdominal discomfort No bleeding reported, one BM today Hgb 8.9 Hct 26.9 11/17/18 EGD: The esophagus appeared normal Medium sized hiatal hernia Gastroenterostomy was found on the greater curve of the stomach Medium sized ulcer was found at the pylorus; biopsies were taken Normal duodenal mucosa in the duodenal bulb and 2nd part duodenum Retroflexion was performed and was normal Plan -Tube feeding as per dietary recommendation -Monitor for bleeding -Hemoglobin 8.9 hematocrit 26.9 -Avoid Nsaids -PPI -Supportive care -Biopsy results pending -EGD as needed -Avoid Anticoagulants -GI will sign off at this time, please notify if any further assistance needed This patient has been seen by myself and Dr. Lino and this note is written on his behalf - Attending Attestation Dr. Lino <Nani Yuen - Last Filed: 11/18/18 15:06> (1) Anemia Status: Chronic Code(s): D64.9 - Anemia, unspecified (2) Acute GI bleeding Status: Acute Code(s): K92.2 - Gastrointestinal hemorrhage, unspecified - Attending Attestation As above, please notify us if needed again. <Jelly Lino - Last Filed: 11/21/18 11:17> <YuenNani - Last Filed: 11/18/18 15:06> (1) Anemia Qualifiers: Anemia type: unspecified type Qualified Code(s): D64.9 - Anemia, unspecified <Jelly Lino - Last Filed: 11/21/18 11:17> (1) Anemia Qualifiers: Anemia type: unspecified type Qualified Code(s): D64.9 - Anemia, unspecified
--- NOTE | 2018-11-18 15:44 | PQ ---
Physician Query Response Document PATIENT: Park Larsen : 1935 ADMIT DATE: 11/15/2018 9:23 PM DISCH DATE: RESPONDING PROVIDER #: JENNY QUERY TEXT: CDS Clarification Acute posthemorrhagic anemia POA in a patient w increased weakness blood in stool a hgb 8.0, finding of gastric ulcer on endoscopy treated with blood transfusion, IV protonix. serial labs and GI consult Other explanation of clinical findings. Unable to determine (no explanation for clinical findings). The medical record reflects the following clinical findings, treatment, and risk factors. * Clinical Indicators weakness blood in stool a hgb 8.0, finding of gastric ulcer on endoscopy * Risk Factors gastric ulcer * Treatment treated with blood transfusion, IV protonix. serial labs and GI consult The patient's Clinical Indicators include: Please clarify and document your clinical opinion in the progress notes and discharge summary includi ng the definitive and/or presumptive diagnosis (suspected or probable), related to the above clinical findings. Please include clinical findings supporting your diagnosis. Thank you, Kaity Vaughn CDS: Kaity Vaughn Patient Unit: [id number] Contact Number: Room: 1624 Query created by: Kaity Vaughn on 11/18/2018 12:28 PM RESPONSE TEXT: Symptomatic Acute posthemorrhagic anemia, patient presented with increased weakness blood in stool, a hgb 8.0, finding of gastric ulcer on endoscopy treated with blood transfusion, IV protonix. serial l abs and GI consult. Patient was also taking NSAIDS, likely the cause of ulcer found. The patient was instructed to stop t aking NSAIDs. Electronically signed by: Lalita Howard MD 11/18/2018 3:40 PM
--- NOTE | 2018-11-18 17:01 | P.PNIM ---
Subjective Interval history: The patient feels much better today. Less abdominal pain. Started with Nepro per accumulative Y patient is taking at home. Currently at goal rate of 45 cc/h. Patient has no much abdominal pain at this time mild epigastric pain with palpation. Kidney function is improving with IV fluids continue IV fluids. She was nauseated yesterday and vomited but no nausea and no vomiting today and she feels improved. Physical Exam Vital signs: Last Vital Signs Temp 98.3 F 11/18/18 16:21 Pulse 87 11/18/18 16:21 Resp 19 11/18/18 16:21 BP 122/61 11/18/18 16:21 Pulse Ox 97 11/18/18 16:21 Intake & Output 11/16/18 11/17/18 11/18/18 11/19/18 06:59 06:59 06:59 06:59 Intake Total 1430 / 1430 3100 / 3100 4431 / 4431 Balance 1430 / 1430 3100 / 3100 4431 / 4431 Weight 58.2 kg 62.8 kg 62.8 kg Narrative: Gen.: Pleasant 82 yo female. Alert and oriented. Soft spoken Cardiovascular: Regular rate and rhythm. No murmurs, rubs or gallops. Respiratory: Lungs clear to auscultation bilaterally. No wheezes or rhonchi. Abdomen: Soft, nontender, nondistended. No peritoneal signs. GJ tube in place without signs of infection. Musculoskeletal: No gross deformities. No edema. Skin: No obvious rashes or erythema. Results Labs CBC & Chem 7: 11/18/18 08:27 11/18/18 08:27 Labs: Microbiology 11/17/18 02:30 Clean Catch Urine Urine Culture - Final 10-50,000 cfu/mL mixed ev (probable contaminants) Assessment and Plan (1) Anemia: Code(s): D64.9 - Anemia, unspecified Status: Chronic (2) Acute GI bleeding: Code(s): K92.2 - Gastrointestinal hemorrhage, unspecified Status: Acute Plan 1. Acute GI bleed due to likely NSAID use Pyloric medium size ulcer seen by EGD Patient with bright red blood coming out her feeding tube and Hemoccult positive in the emergency department Transfuse 1 unit packed red blood cells for hemoglobin of 8.0 on admission , symptomatic. H&H stable Gastroenterology consulted, appreciate assistance. S/p EGD IV Protonix changed to p.o. at discharge, continue PPI p.o. at discharge. Patient to have results of biopsy and review as OP with GI Started tube feedings at goal of 45 cc currently tolerates well Stop NSAIDs 2. Chronic pancreatitis Patient with a long history of recurrent idiopathic pancreatitis for which she has been hospitalized many times History of biliary stent and GJ tube Continue home [place] 3. Acute renal failure in the setting of chronic kidney disease Possibly related to NSAIDs use Patient with history of CKD stage III, baseline creatinine 2-3 BUN/Creatinine 132/4.82 on 11/15/18. Creatinine is improving Follows with Dr. Melara Renal ultrasound reviewed Continue IV fluid hydration Nephrology consulted, appreciate recommendations Monitor kidney function closely. 4. Hypertension/GERD Continue home medications Physician deconditioning: Consult PT for gait training DVT ppx: Holding pharmacologic anticoagulation for active GI bleed Probably discharge in 1 or 2 days when creatinine back at baseline and cleared by nephrology Progress Note: Quality VTE Deep Vein Thrombosis/Pulmonary Embolism Present on Admission: No _ (1) Anemia Qualifiers: Anemia type: unspecified type Iron deficiency anemia type: Vitamin B12 deficiency anemia type: Folate deficiency anemia type: Bone marrow failure anemia type: Hemolytic anemia type: Other causes of anemia: Chronic kidney disease stage: Qualified Code(s): D64.9 - Anemia, unspecified
[2018-11-19] MEDS: Sod Chloride 0.9% Inj 1,000 ML IV.CONT SCH ×3 (01:10→19:37)
[2018-11-19] MEDS: Pantoprazole Inj 40 MG Vial IV.PUSH SCH ×2 (05:17→18:26)
[2018-11-19 06:46] LABS: Baso # (Auto) 0.3 th/mm3 (0.0-0.2); Eos # (Auto) 0.3 th/mm3 (0.0-0.4); Eos % (Auto) 1.3 % (0.0-4.0); Hematocrit 29.6 % (35.0-46.0); Hemoglobin 9.3 gm/dL (11.6-15.3); Lymph # (Auto) 1.3 th/mm3 (1.0-4.8); Mean Corpuscular HGB Conc 31.4 % (32.0-36.0); Mean Corpuscular Hemoglobin 27.6 pg (27.0-34.0); Mean Platelet Volume 7.7 fL (7.0-11.0); Mono # (Auto) 0.9 th/mm3 (0.0-0.9); Mono % (Auto) 3.5 % (0.0-8.0); Neut # (Auto) 23.7 th/mm3 (1.8-7.7); Neut % (Auto) 89.2 % (16.0-70.0); Platelet Count 319 th/mm3 (150-450); Red Blood Count 3.37 mil/mm3 (4.00-5.30); Red Cell Distribution Width 14.5 % (11.6-17.2); White Blood Count 26.6 th/mm3 (4.0-11.0)
[2018-11-19] MEDS ORDERED: Morphine Sulfate Inj 2 MG/ML Vial IV.PUSH ONE (06:54)
[2018-11-19 07:14] LABS: % Iron Saturation 10.8 % (20-50); Albumin 2.4 g/dL (3.4-5.0); Calcium 8.6 mg/dL (8.5-10.1); Carbon Dioxide 19.2 meq/L (21.0-32.0); Phosphorus 3.7 mg/dL (2.5-4.9); Potassium 3.9 meq/L (3.5-5.1)
[2018-11-19] MEDS: Metoprolol Tartrate 25 MG Tablet PO SCH ×2 (08:05→19:59)
[2018-11-19] MEDS ORDERED: Morphine Inj 4 MG/ML Vial IV.PUSH ONE (08:15)
--- NOTE | 2018-11-19 09:11 | P.PNIM ---
Subjective Interval history: The patient appears in not acute distress at this time. Says nausea subsided no vomiting. Tolerates tube feedings. Still with some epigastric pain. No fever or chills. Feels weak. Creatinine improving. Physical Exam Vital signs: Last Vital Signs Temp 98.8 F 11/19/18 04:49 Pulse 101 H 11/19/18 04:49 Resp 20 11/19/18 04:49 BP 144/76 H 11/19/18 04:49 Pulse Ox 97 11/19/18 04:49 Intake & Output 11/17/18 11/18/18 11/19/18 11/20/18 06:59 06:59 06:59 06:59 Intake Total 3100 / 3100 4431 / 4431 2373 / 2373 Balance 3100 / 3100 4431 / 4431 2373 / 2373 Weight 62.8 kg 62.8 kg 62.8 kg Narrative: Gen.: Pleasant 82 yo female. Alert and oriented. Soft spoken Cardiovascular: Regular rate and rhythm. No murmurs, rubs or gallops. Respiratory: Lungs clear to auscultation bilaterally. No wheezes or rhonchi. Abdomen: Soft, nontender, nondistended. No peritoneal signs. GJ tube in place without signs of infection. Musculoskeletal: No gross deformities. No edema. Skin: No obvious rashes or erythema. Results Labs CBC & Chem 7: 11/19/18 06:24 11/19/18 06:24 Labs: Microbiology 11/17/18 02:30 Clean Catch Urine Urine Culture - Final 10-50,000 cfu/mL mixed ev (probable contaminants) Assessment and Plan (1) Anemia: Code(s): D64.9 - Anemia, unspecified Status: Chronic (2) Acute GI bleeding: Code(s): K92.2 - Gastrointestinal hemorrhage, unspecified Status: Acute Plan 1. Acute GI bleed due to likely NSAID use Pyloric medium size ulcer seen by EGD Patient with bright red blood coming out her feeding tube and Hemoccult positive in the emergency department Transfuse 1 unit packed red blood cells for hemoglobin of 8.0 on admission , symptomatic. H&H stable Gastroenterology consulted, appreciate assistance. S/p EGD IV Protonix changed to p.o. at discharge, continue PPI p.o. at discharge. Patient to have results of biopsy and review as OP with GI Started tube feedings at goal of 45 cc currently tolerates well Stop NSAIDs 2. Chronic pancreatitis Patient with a long history of recurrent idiopathic pancreatitis for which she has been hospitalized many times History of biliary stent and GJ tube Continue home [place] 3. Acute renal failure in the setting of chronic kidney disease Possibly related to NSAIDs use Patient with history of CKD stage III, baseline creatinine 2-3 BUN/Creatinine 132/4.82 on 11/15/18. Creatinine/BUN is improving Follows with Dr. Melara Renal ultrasound reviewed Continue IV fluid hydration Nephrology consulted, appreciate recommendations Monitor kidney function closely. 4. Hypertension/GERD Continue home medications 6. Chronic leukocytosis, most consistent with a leukemoid reaction. She has had fluctuating white blood cell counts for several years that usually coincide with a hospital admissions. Has been worked extensivelly in the past, was evaluated by Dr Perea hem/onc Monitor cbc Physician deconditioning: Consult PT for gait training DVT ppx: Holding pharmacologic anticoagulation for active GI bleed Probably discharge in 1 or 2 days when creatinine back at baseline and cleared by nephrology Progress Note: Quality VTE Deep Vein Thrombosis/Pulmonary Embolism Present on Admission: No _ (1) Anemia Qualifiers: Anemia type: unspecified type Bone marrow failure anemia type: Chronic kidney disease stage: Folate deficiency anemia type: Hemolytic anemia type: Iron deficiency anemia type: Other causes of anemia: Vitamin B12 deficiency anemia type: Qualified Code(s): D64.9 - Anemia, unspecified
[2018-11-19] MEDS: Lipase/Protease/Amylase 12/38/60 DR Capsule PO SCH ×3 (10:00→18:26)
--- NOTE | 2018-11-19 15:43 | P.PNNP ---
Subjective Interval history: no acute complaints Physical Exam Vital signs: Vital Signs 11/18/18 16:21 11/18/18 20:55 11/19/18 00:49 Temperature 98.3 F 98.3 F 98.4 F Pulse Rate 87 103 H 94 H Respiratory Rate 19 20 18 Blood Pressure 122/61 141/75 H 144/69 H Pulse Oximetry 97 98 97 11/19/18 04:49 11/19/18 08:00 11/19/18 12:00 Temperature 98.8 F 98.6 F 99.6 F Pulse Rate 101 H 98 H 98 H Respiratory Rate 20 18 18 Blood Pressure 144/76 H 143/75 H 125/68 Pulse Oximetry 97 100 99 Intake & Output 11/18/18 11/19/18 11/19/18 18:59 06:59 18:59 Intake Total 2012 360 / 360 1000 / 1000 Balance 2012 360 / 360 1000 / 1000 Weight 62.8 kg Intake: IV 813 / 813 1000 / 1000 NS Inj 1,000 ML @ 100 mls/hr IV 813 / 813 1000 / 1000 .CONT .Q10H [facility] Rx#:[id number] Oral 1200 / 1200 360 / 360 Other: # Incontinent Voids 3 # Urine Diapers 6 Date of Last Bowel Movement 11/18/18 11/19/18 # Bowel Movements 1 0 - Constitutional no acute distress - Routine HEENT Exam Head: Present: normocephalic Eye: Present: EOMI ENT: Present: mucous membranes moist - Routine Neck Exam Present: supple - Routine Respiratory Exam Present: decreased breath sounds - Routine Cardiovascular Exam Present: RRR - Routine Abdominal Exam Present: soft - Routine Skin Exam Present: intact - Routine Neurological Exam Present: alert, oriented X3 - Detailed Neurological Exam: Coma Scale Eye Opening: Spontaneous - Routine Psychiatric Exam Present: normal affect, normal thought process Assessment and Plan - Assessment (1) Acute kidney injury Code(s): N17.9 - Acute kidney failure, unspecified Status: Acute Plan: WAYNE on CKD Acute on chronic kidney disease with a creatinine of 4.82 on day of consult Baseline creatinine in 2.2 to 2.5. WAYNE possible prerenal vs ATN from poor intake and or NSAID use. Renal ultrasound with small echogenic kidneys. Creatinine improvin.8- -> 3.2 If further improvement tomorrow can stop IVFs, F/u AM labs Avoid nephrotoxins including NSAIDs and IV contrast. Maintain accurate I+O. (2) Acute GI bleeding Code(s): K92.2 - Gastrointestinal hemorrhage, unspecified Status: Acute Plan: GI consult. Protonix. S/P EGD HGB stable, transfused on 11/15
[2018-11-19] MEDS: Acetaminophen 325 MG Tablet PO PRN (19:54)
[2018-11-20] MEDS: Sod Chloride 0.9% Inj 1,000 ML IV.CONT SCH ×2 (02:23→14:10)
[2018-11-20] MEDS ORDERED: Morphine Sulfate Inj 2 MG/ML Vial IV.PUSH ONE (03:13)
[2018-11-20] MEDS ORDERED: Morphine Inj 4 MG/ML Vial IV.PUSH ONE (03:30)
[2018-11-20] MEDS: Pantoprazole Inj 40 MG Vial IV.PUSH SCH ×2 (05:25→18:09)
[2018-11-20 06:20] LABS: Baso # (Auto) 0.1 th/mm3 (0.0-0.2); Baso % (Auto) 0.4 % (0.0-2.0); Eos # (Auto) 0.3 th/mm3 (0.0-0.4); Hematocrit 28.6 % (35.0-46.0); Hemoglobin 9.4 gm/dL (11.6-15.3); Lymph # (Auto) 1.2 th/mm3 (1.0-4.8); Lymph % (Auto) 4.4 % (9.0-44.0); Mean Corpuscular HGB Conc 32.8 % (32.0-36.0); Mean Corpuscular Hemoglobin 28.5 pg (27.0-34.0); Mean Corpuscular Volume 86.9 fL (80.0-100.0); Mean Platelet Volume 8.3 fL (7.0-11.0); Mono % (Auto) 3.6 % (0.0-8.0); Neut # (Auto) 24.1 th/mm3 (1.8-7.7); Neut % (Auto) 90.6 % (16.0-70.0); Platelet Count 268 th/mm3 (150-450); Red Blood Count 3.29 mil/mm3 (4.00-5.30); Red Cell Distribution Width 14.6 % (11.6-17.2); White Blood Count 26.6 th/mm3 (4.0-11.0)
[2018-11-20 06:42] LABS: Calcium 8.8 mg/dL (8.5-10.1); Carbon Dioxide 19.7 meq/L (21.0-32.0); Potassium 3.8 meq/L (3.5-5.1)
[2018-11-20] MEDS: Lipase/Protease/Amylase 12/38/60 DR Capsule PO SCH ×3 (09:57→18:09)
[2018-11-20] MEDS: Metoprolol Tartrate 25 MG Tablet PO SCH ×2 (09:58→20:29)
--- NOTE | 2018-11-20 11:32 | P.PNIM ---
Subjective Interval history: The patient is in bed she appears in not acute is distress at this time. However she was complaining of pain earlier per nurse. Patient still admits that she is also taking morphine at home besides [place] given by hospice. Patient says she will return home with hospice at discharge. No fever or chills. No nausea or vomiting. Tolerates tube feedings. Physical Exam Vital signs: Last Vital Signs Temp 98.6 F 11/20/18 08:00 Pulse 100 H 11/20/18 08:00 Resp 16 11/20/18 08:00 BP 149/82 H 11/20/18 08:00 Pulse Ox 95 11/20/18 08:00 Intake & Output 11/18/18 11/19/18 11/20/18 11/21/18 06:59 06:59 06:59 06:59 Intake Total 4431 / 4431 2373 / 2373 1919 / 1919 Balance 4431 / 4431 2373 / 2373 1919 / 1919 Weight 62.8 kg 62.8 kg 61.3 kg Narrative: Gen.: Pleasant 82 yo female. Alert and oriented. Soft spoken Cardiovascular: Regular rate and rhythm. No murmurs, rubs or gallops. Respiratory: Lungs clear to auscultation bilaterally. No wheezes or rhonchi. Abdomen: Soft, nontender, nondistended. No peritoneal signs. GJ tube in place without signs of infection. Musculoskeletal: No gross deformities. No edema. Skin: No obvious rashes or erythema. Results Labs CBC & Chem 7: 11/20/18 04:27 11/20/18 04:27 Assessment and Plan (1) Anemia: Code(s): D64.9 - Anemia, unspecified Status: Chronic (2) Acute GI bleeding: Code(s): K92.2 - Gastrointestinal hemorrhage, unspecified Status: Acute Plan 1. Acute GI bleed due to likely NSAID use Pyloric medium size ulcer seen by EGD Patient with bright red blood coming out her feeding tube and Hemoccult positive in the emergency department Transfuse 1 unit packed red blood cells for hemoglobin of 8.0 on admission , symptomatic. H&H stable Gastroenterology consulted, appreciate assistance. S/p EGD IV Protonix changed to p.o. at discharge, continue PPI p.o. at discharge. Patient to have results of biopsy and review as OP with GI Started tube feedings at goal of 45 cc currently tolerates well Stop NSAIDs Add carafate 2. Chronic pancreatitis Patient with a long history of recurrent idiopathic pancreatitis for which she has been hospitalized many times History of biliary stent and GJ tube Continue home [place] 3. Acute renal failure in the setting of chronic kidney disease Possibly related to NSAIDs use Patient with history of CKD stage III, baseline creatinine 2-3 BUN/Creatinine 132/4.82 on 11/15/18. Creatinine/BUN is improving Follows with Dr. Melara Renal ultrasound reviewed Continue IV fluid hydration Nephrology consulted, appreciate recommendations Monitor kidney function closely. 4. Hypertension/GERD Continue home medications 6. Chronic leukocytosis, most consistent with a leukemoid reaction. She has had fluctuating white blood cell counts for several years that usually coincide with a hospital admissions. Has been worked extensivelly in the past, was evaluated by Dr Perea hem/onc Monitor cbc 7. Chronic pain resume home meds Physician deconditioning: Consult PT for gait training DVT ppx: Holding pharmacologic anticoagulation for active GI bleed Probably discharge in 1 or 2 days when creatinine back at baseline and cleared by nephrology PATIENT SAYS SHE WANTS TO GO BACK HOME WITH HOSPICE Progress Note: Quality VTE Deep Vein Thrombosis/Pulmonary Embolism Present on Admission: No _ (1) Anemia Qualifiers: Anemia type: unspecified type Bone marrow failure anemia type: Chronic kidney disease stage: Folate deficiency anemia type: Hemolytic anemia type: Iron deficiency anemia type: Other causes of anemia: Vitamin B12 deficiency anemia type: Qualified Code(s): D64.9 - Anemia, unspecified
--- NOTE | 2018-11-20 14:05 | P.PNNP ---
Subjective Interval history: no acute complaints Physical Exam Vital signs: Vital Signs 11/19/18 16:30 11/19/18 19:32 11/19/18 20:00 Temperature 98.3 F 100.1 F H Pulse Rate 130 H 123 H Respiratory Rate 21 16 24 Blood Pressure 160/73 H 141/76 H Pulse Oximetry 100 100 11/19/18 23:51 11/20/18 00:00 11/20/18 04:00 Temperature 98.4 F 99 F Pulse Rate 91 H 109 H 114 H Respiratory Rate 22 22 Blood Pressure 156/74 H 151/73 H Pulse Oximetry 95 94 L 11/20/18 08:00 11/20/18 12:00 Temperature 98.6 F 97.5 F L Pulse Rate 100 H 103 H Respiratory Rate 16 16 Blood Pressure 149/82 H 169/76 H Pulse Oximetry 95 100 Intake & Output 11/19/18 11/20/18 11/20/18 18:59 06:59 18:59 Intake Total 1000 / 1000 920 / 920 Balance 1000 / 1000 920 / 920 Weight 61.3 kg Intake: IV 1000 / 1000 NS Inj 1,000 ML @ 100 mls/hr IV 1000 / 1000 .CONT .Q10H HITESH Rx#:[id number] Tube Feeding 720 / 720 Water Bolus Amount 200 / 200 Other: # Voids 3 # Incontinent Voids 2 Date of Last Bowel Movement 11/19/18 11/20/18 # Bowel Movements 1 2 # Incontinent Bowel Movements 2 - Constitutional no acute distress - Routine HEENT Exam Head: Present: normocephalic Eye: Present: EOMI - Routine Neck Exam Present: supple - Routine Respiratory Exam Present: decreased breath sounds - Routine Cardiovascular Exam Present: RRR - Routine Abdominal Exam Present: soft - Routine Skin Exam Present: intact - Routine Neurological Exam Present: alert, oriented X3 - Detailed Neurological Exam: Coma Scale Eye Opening: Spontaneous - Routine Psychiatric Exam Present: normal affect Assessment and Plan - Assessment (1) Acute kidney injury Code(s): N17.9 - Acute kidney failure, unspecified Status: Acute Plan: WAYNE on CKD Acute on chronic kidney disease with a creatinine of 4.82 on day of consult Baseline creatinine in 2.2 to 2.5. WAYNE possible prerenal vs ATN from poor intake and or NSAID use. Renal ultrasound with small echogenic kidneys. Creatinine improvin.8- -> 3.2 -> 3.0 Continues on NS at 100cc/hour. Patient voiding. Can continue IVFs for now, if further improvement can D/C IVFs tomorrow Avoid nephrotoxins including NSAIDs and IV contrast. Maintain accurate I+O. (2) Acute GI bleeding Code(s): K92.2 - Gastrointestinal hemorrhage, unspecified Status: Acute Plan: GI consult. Protonix. S/P EGD HGB stable, transfused on 11/15
[2018-11-20] MEDS: Acetaminophen 325 MG Tablet PO PRN (17:26)
[2018-11-20] MEDS ORDERED: MORPHINE 15 MG PO PRN (18:14)
[2018-11-20] MEDS: Morphine Sulfate 15 MG IR Tablet PO PRN (20:30)
[2018-11-21] MEDS: Acetaminophen 325 MG Tablet PO PRN (00:27)
[2018-11-21] MEDS: Sucralfate Liq 1 GM/10 ML UDC G-TUBE SCH ×4 (09:15→18:05)
[2018-11-21] MEDS: Sod Chloride 0.9% Inj 1,000 ML IV.CONT SCH ×2 (09:16→10:13)
[2018-11-21] MEDS: Pantoprazole Inj 40 MG Vial IV.PUSH SCH ×2 (09:17→18:05)
[2018-11-21 10:01] LABS: Calcium 9.2 mg/dL (8.5-10.1); Carbon Dioxide 20.3 meq/L (21.0-32.0); Potassium 4.2 meq/L (3.5-5.1)
[2018-11-21] MEDS: Lipase/Protease/Amylase 12/38/60 DR Capsule PO SCH ×3 (10:07→18:05)
[2018-11-21] MEDS: Metoprolol Tartrate 25 MG Tablet PO SCH ×2 (10:07→20:34)
[2018-11-21] MEDS: Morphine Sulfate 15 MG IR Tablet PO PRN (12:15)
--- NOTE | 2018-11-21 15:09 | P.PNNP ---
Subjective Interval history: Seen in AM. Reporting abdominal pain. Denies any shortness of breath, chest pain, or dysuria. <Shreya Tejeda - Last Filed: 11/21/18 15:06> Physical Exam Vital signs: Vital Signs 11/20/18 16:00 11/20/18 18:47 11/20/18 19:34 Temperature 97.8 F Pulse Rate 109 H Respiratory Rate 14 17 18 Blood Pressure 157/78 H Pulse Oximetry 96 11/20/18 20:00 11/21/18 00:18 11/21/18 04:03 Temperature 98.1 F 98.5 F 98.1 F Pulse Rate 112 H 114 H 107 H Respiratory Rate 18 17 16 Blood Pressure 157/80 H 137/76 151/78 H Pulse Oximetry 100 99 99 Intake & Output 11/20/18 11/21/18 11/21/18 18:59 06:59 18:59 Intake Total 813 / 813 1300 / 1300 1000 / 1000 Balance 813 / 813 1300 / 1300 1000 / 1000 Weight 60.8 kg Intake: IV 813 / 813 1000 / 1000 1000 / 1000 NS Inj 1,000 ML @ 100 mls/hr IV 813 / 813 1000 / 1000 1000 / 1000 .CONT .Q10H HITESH Rx#:[id number] Oral 300 / 300 Other: # Voids 1 4 Date of Last Bowel Movement 11/20/18 11/20/18 # Bowel Movements 0 Narrative: Gen.: Pleasant 82 yo female. Alert and oriented. Soft spoken Cardiovascular: Tachycardia. Regular rate and rhythm. No murmurs, rubs or gallops. Respiratory: Lungs clear to auscultation bilaterally. No wheezes or rhonchi. Abdomen: Soft, nontender, nondistended. No peritoneal signs. GJ tube in place without signs of infection. Musculoskeletal: No gross deformities. No edema. Skin: No obvious rashes or erythema. <Shreya Tejeda - Last Filed: 11/21/18 15:06> Vital signs: Vital Signs 11/21/18 00:18 11/21/18 04:03 11/21/18 08:00 Temperature 98.5 F 98.1 F 99.1 F Pulse Rate 114 H 107 H 127 H Respiratory Rate 17 16 16 Blood Pressure 137/76 151/78 H 155/76 H Pulse Oximetry 99 99 100 11/21/18 12:00 11/21/18 16:00 Temperature 99.1 F 99.0 F Pulse Rate 106 H 112 H Respiratory Rate 17 15 Blood Pressure 152/74 H 137/63 Pulse Oximetry 98 99 Intake & Output 11/21/18 11/21/18 11/22/18 06:59 18:59 06:59 Intake Total 1300 / 1300 1000 / 1000 Balance 1300 / 1300 1000 / 1000 Weight 60.8 kg Intake: IV 1000 / 1000 1000 / 1000 NS Inj 1,000 ML @ 100 mls/hr IV 1000 / 1000 1000 / 1000 .CONT .Q10H HITESH Rx#:[id number] Oral 300 / 300 Other: # Voids 4 # Urine Diapers 3 Date of Last Bowel Movement 11/20/18 11/20/18 # Bowel Movements 0 1 <Samson Kennedy - Last Filed: 11/21/18 22:08> Assessment and Plan - Assessment (1) Acute kidney injury Code(s): N17.9 - Acute kidney failure, unspecified Status: Acute Plan: WAYNE on CKD Acute on chronic kidney disease with a creatinine of 4.82 on day of consult Baseline creatinine in 2.2 to 2.5. WAYNE possible prerenal vs ATN from poor intake and or NSAID use. Renal ultrasound with small echogenic kidneys. Creatinine improvin.8- -> 3.2 -> 3.0 ->2.9 On NS at 100cc/hour. With improvement in creatinine will discontinue IVF Avoid nephrotoxins including NSAIDs and IV contrast. fluid and electrolytes stable. Labs in AM (2) Acute GI bleeding Code(s): K92.2 - Gastrointestinal hemorrhage, unspecified Status: Acute Plan: GI consult. Protonix. S/P EGD HGB stable, transfused on 11/15 <Shreya Tejeda - Last Filed: 11/21/18 15:06> - Assessment (1) Acute kidney injury Code(s): N17.9 - Acute kidney failure, unspecified Status: Acute Plan: Patient seen and examined, agree with above. Creatinine slowly improving, Continue IVF and avoid Nephrotoxins. (2) Acute GI bleeding Code(s): K92.2 - Gastrointestinal hemorrhage, unspecified Status: Acute <Samson Kennedy - Last Filed: 11/21/18 22:08>
--- NOTE | 2018-11-21 15:56 | P.PNIM ---
Subjective Interval history: She is in bed says still with abdominal pain however improving a little bit. Feels very weak. Kidney function is improving slowly. No nausea or vomiting. Tolerates tube feedings fairly well. Physical Exam Vital signs: Last Vital Signs Temp 98.1 F 11/21/18 04:03 Pulse 107 H 11/21/18 04:03 Resp 16 11/21/18 04:03 BP 151/78 H 11/21/18 04:03 Pulse Ox 99 11/21/18 04:03 Intake & Output 11/19/18 11/20/18 11/21/18 11/22/18 06:59 06:59 06:59 06:59 Intake Total 2373 / 2373 1919 / 0 2112 / 2112 999 / 999 Balance 237 / 2372 1919 / 1919 2112 / 2112 999 / 999 Weight 62.8 kg 61.3 kg 60.8 kg Narrative: Gen.: Pleasant 82 yo female, appears in not acute distress. Alert and oriented. Cardiovascular: Tachycardia. Regular rate and rhythm. No murmurs, rubs or gallops. Respiratory: Lungs clear to auscultation bilaterally. No wheezes or rhonchi. Abdomen: Soft, nontender, nondistended. No peritoneal signs. GJ tube in place without signs of infection. Musculoskeletal: No gross deformities. No edema. Skin: No obvious rashes or erythema. Results Labs CBC & Chem 7: 11/20/18 04:27 11/21/18 08:35 Assessment and Plan (1) Anemia: Code(s): D64.9 - Anemia, unspecified Status: Chronic (2) Acute GI bleeding: Code(s): K92.2 - Gastrointestinal hemorrhage, unspecified Status: Acute Plan 1. Acute GI bleed due to likely NSAID use Pyloric medium size ulcer seen by EGD Patient with bright red blood coming out her feeding tube and Hemoccult positive in the emergency department Transfuse 1 unit packed red blood cells for hemoglobin of 8.0 on admission , symptomatic. H&H stable Gastroenterology consulted, appreciate assistance. S/p EGD IV Protonix changed to p.o. at discharge, continue PPI p.o. at discharge. Patient to have results of biopsy and review as OP with GI Started tube feedings at goal of 45 cc currently tolerates well Stop NSAIDs Add carafate 2. Chronic pancreatitis Patient with a long history of recurrent idiopathic pancreatitis for which she has been hospitalized many times History of biliary stent and GJ tube Continue home [place] 3. Acute renal failure in the setting of chronic kidney disease Possibly related to NSAIDs use Patient with history of CKD stage III, baseline creatinine 2-3 BUN/Creatinine 132/4.82 on 11/15/18. Creatinine/BUN is improving Follows with Dr. Melara Renal ultrasound reviewed Continue IV fluid hydration Nephrology consulted, appreciate recommendations Monitor kidney function closely. 4. Hypertension/GERD Continue home medications 6. Chronic leukocytosis, most consistent with a leukemoid reaction. She has had fluctuating white blood cell counts for several years that usually coincide with a hospital admissions. Has been worked extensivelly in the past, was evaluated by Dr Perea hem/onc Monitor cbc 7. Chronic pain resume home meds Physician deconditioning: Consult PT for gait training DVT ppx: Holding pharmacologic anticoagulation for active GI bleed Probably discharge in 1 or 2 days when creatinine back at baseline and cleared by nephrology PATIENT SAYS SHE WANTS TO GO BACK HOME WITH HOSPICE Progress Note: Quality VTE Deep Vein Thrombosis/Pulmonary Embolism Present on Admission: No _ (1) Anemia Qualifiers: Anemia type: unspecified type Iron deficiency anemia type: Vitamin B12 deficiency anemia type: Folate deficiency anemia type: Bone marrow failure anemia type: Hemolytic anemia type: Other causes of anemia: Chronic kidney disease stage: Qualified Code(s): D64.9 - Anemia, unspecified
--- NOTE | 2018-11-21 17:11 | P.DS ---
DS: Providers Date of admission: 11/15/18 21:23 Primary care physician: Hong Peterson MD Consults: 11/15/18 22:27 Consult to Gastroenterology Routine Consulting Provider: Yared Musa V Reason for Consultation: anemia with +occult stool and bleeding from g/j tube Notified:: Service Spoke with:: Sharmin Date Notified:: 11/15/18 Time Notified:: 23:23 Ordering Provider: JV 11/15/18 23:07 Consult to Nephrology Routine Consulting Provider: Samson Kennedy Does the patient have a Lance Crewmember/Mlrs Sergeant who follows them?: Yes Preferred Nephrology Obstetrics Technician:: Arnaldo Melara Reason for Consultation: acute renal failure Notified:: Service Spoke with:: Sharmin Date Notified:: 11/15/18 Time Notified:: 23:20 Comments:: Dr. Melara is out of town. Dr. Kennedy is covering. Ordering Provider: OLESYA Brief History from admission: 82-year-old female with a past medical history significant for CKD stage III, chronic pancreatitis with GJ tube, hypertension and GERD previously on hospice, revoked so that the patient could receive full treatment in the hospital presents to the emergency department for evaluation of blood through her GJ tube. The patient's granddaughter is bedside who states that during her feed earlier today she noted a significant amount of bright red blood coming out of the patient's feeding tube. She also reports dark, tarry stools for the past 2- 3 days. The patient was admitted to [facility] earlier this month, underwent an ERCP that her granddaughter said was "unsuccessful." She was then transferred to rehab and return to home after 2-1/2 weeks and rehab. The patient is largely bedbound. She has no complaints at this time. Denies chest pain or shortness of breath. States her abdominal pain is baseline at 5/10. No fever/chills. No focal neurologic deficits. DS: Diagnosis Discharge Diagnosis (1) Anemia: Status: Chronic (2) Acute GI bleeding: Status: Acute DS: Summary 1. Acute GI bleed due to likely NSAID use Pyloric medium size ulcer seen by EGD Patient with bright red blood coming out her feeding tube and Hemoccult positive in the emergency department Transfuse 1 unit packed red blood cells for hemoglobin of 8.0 on admission , symptomatic. H&H stable Gastroenterology consulted, appreciate assistance. S/p EGD IV Protonix changed to p.o. at discharge, continue PPI p.o. at discharge. Patient to have results of biopsy and review as OP with GI Started tube feedings at goal of 45 cc currently tolerates well Stop NSAIDs Addes carafate 2. Chronic pancreatitis Patient with a long history of recurrent idiopathic pancreatitis for which she has been hospitalized many times History of biliary stent and GJ tube Continue home [place] 3. Acute renal failure in the setting of chronic kidney disease Possibly related to NSAIDs use Patient with history of CKD stage III, baseline creatinine 2-3. Kidney function back to baseline BUN/Creatinine 132/4.82 on 11/15/18. Creatinine/BUN is improving Follows with Dr. Melara Renal ultrasound reviewed Continue IV fluid hydration Nephrology consulted, appreciate recommendations Monitor kidney function closely. 4. Hypertension/GERD Continue home medications 6. Chronic leukocytosis, most consistent with a leukemoid reaction. She has had fluctuating white blood cell counts for several years that usually coincide with a hospital admissions. Has been worked extensivelly in the past, was evaluated by Dr Perea hem/onc Monitor cbc 7. Chronic pain resume home meds Physician deconditioning: Consult PT for gait training DVT ppx: Holding pharmacologic anticoagulation for active GI bleed Probably discharge in 1 or 2 days when creatinine back at baseline and cleared by nephrology PATIENT SAYS SHE WANTS TO GO BACK HOME WITH HOSPICE [place] discussed with Miss Caitlyn Faustin her daughter plan of discharge. Patient is DC home with hospice Time Spent with Patient Total time spent providing and/or coordinating discharge services: Greater than 30 minutes Quality: VTE Deep Vein Thrombosis/Pulmonary Embolism Present on Admission: No Exam Narrative Exam Narrative: Gen.: Pleasant 82 yo female, appears in not acute distress. Alert and oriented. Cardiovascular: Tachycardia. Regular rate and rhythm. No murmurs, rubs or gallops. Respiratory: Lungs clear to auscultation bilaterally. No wheezes or rhonchi. Abdomen: Soft, nontender, nondistended. No peritoneal signs. GJ tube in place without signs of infection. Musculoskeletal: No gross deformities. No edema. Skin: No obvious rashes or erythema. Results Completed studies during hospitalization: Pending at discharge 11/17/18 13:07 Surgical [PTH] Routine Labs on day of discharge: Labs from last 24 hours 11/21/18 08:35 Sodium 145 Potassium 4.2 Chloride 116 H Carbon Dioxide 20.3 L Anion Gap 9 BUN 57 H Creatinine 2.92 H Estimated GFR 19 L Random Glucose 133 H Calcium 9.2 Impressions ITS Impressions Chest X-Ray 11/15/18 18:10 CONCLUSION: Subsegmental basilar airspace disease. No effusion or pneumothorax. Abdomen/Bladder Ultrasound 11/16/18 00:00 CONCLUSION: 1. Small echogenic kidneys without hydronephrosis or mass. Discharge Plan Discharge Disposition Patient Disposition: 50 Hospice/Home Discharge Condition Condition: Fair Discharge Order Discharge Orders: Discharge Order (Routine); Ordered 11/21/18 Ordered By: Lalita Howard Nephrology Clear for Discharge (Routine); Ordered 11/21/18 Ordered By: Samson Kennedy Discharge Details Anticipated Discharge Date: 11/22/18 Discharge Comment: DC to home with hospice when arrangements are done Physicians Team Primary Care Provider: Hong Peterson Attending Provider: Lalita Howard Other Providers: Samson Kennedy ; Yared Musa V Rxs /Orders / Referrals /Forms Prescriptions: Continue magnesium hydroxide [Presley Milk of Magnesia] 311 mg Tablet,Chewable 311 mg PO QID PRN (Reason: Constipation) RF: 0 metoprolol tartrate 25 mg Tablet 25 mg PO BID RF: 0 [id number] [Creon] 12,000-38,000 -60,000 unit Capsule,Delayed Release(Dr/Ec) 1 tab PO TIDPC RF: 0 pantoprazole 40 mg Tablet,Delayed Release (Dr/Ec) 40 mg PO BID RF: 0 sucralfate 1 gram Tablet 1 g PO TID RF: 0 prednisone 10 mg Tablet 10 mg PO DAILY Qty: 5 RF: 0 ursodiol [Actigall] 300 mg Capsule 300 mg PO BID RF: 0 water for injection, sterile Parenteral Solution 200 ml G-Tube Q6HR RF: 0 duloxetine [Cymbalta] 20 mg Capsule,Delayed Release(Dr/Ec) 20 mg PO DAILY RF: 0 nifedipine 30 mg Tablet Extended Release 24hr 30 mg PO BID Qty: 60 RF: 0 prednisone 20 mg Tablet 20 mg PO DAILY Qty: 10 RF: 0 calcium carbonate 200 mg calcium (500 mg) Tablet,Chewable 500 mg CHEW BID RF: 0 hydrocodone-acetaminophen [[place]] 5-325 mg Tablet 1 tab PO Q4H PRN (Reason: Pain) Qty: 30 RF: 0 morphine 15 mg Tablet Extended Release 12hr 15 mg PO BID PRN (Reason: Pain) RF: 0 Referrals: Hong Peterson MD [Primary Care Provider] - See Instructions Status ED Status: Left Department
[2018-11-22 03:23] VITALS: RESP 18
[2018-11-22] MEDS: Pantoprazole Inj 40 MG Vial IV.PUSH SCH ×2 (05:12→17:45)
[2018-11-22 06:57] LABS: Albumin 2.1 g/dL (3.4-5.0); Calcium 8.8 mg/dL (8.5-10.1); Carbon Dioxide 19.7 meq/L (21.0-32.0); Phosphorus 2.9 mg/dL (2.5-4.9); Potassium 3.9 meq/L (3.5-5.1)
[2018-11-22] MEDS: Sucralfate Liq 1 GM/10 ML UDC G-TUBE SCH ×3 (09:29→17:45)
[2018-11-22] MEDS: Metoprolol Tartrate 25 MG Tablet PO SCH (09:29)
[2018-11-22] MEDS: Lipase/Protease/Amylase 12/38/60 DR Capsule PO SCH ×3 (09:30→17:45)
[2018-11-22] MEDS: Morphine Sulfate 15 MG IR Tablet PO PRN (13:25)
--- NOTE | 2018-11-22 14:41 | P.DS ---
DS: Providers Date of admission: 11/15/18 21:23 Primary care physician: Hong Peterson MD Consults: 11/15/18 22:27 Consult to Gastroenterology Routine Consulting Provider: Yared Musa V Reason for Consultation: anemia with +occult stool and bleeding from g/j tube Notified:: Service Spoke with:: Sharmin Date Notified:: 11/15/18 Time Notified:: 23:23 Ordering Provider: JV 11/15/18 23:07 Consult to Nephrology Routine Consulting Provider: Samson Kennedy Does the patient have a Lpn Care Manager who follows them?: Yes Preferred Nephrology Tool Grinder Operator External:: Arnaldo Melara Reason for Consultation: acute renal failure Notified:: Service Spoke with:: Sharmin Date Notified:: 11/15/18 Time Notified:: 23:20 Comments:: Dr. Melara is out of town. Dr. Kennedy is covering. Ordering Provider: JLKIRKMA 11/22/18 14:04 Consult to Radiology Routine Brief History from admission: 82-year-old female with a past medical history significant for CKD stage III, chronic pancreatitis with GJ tube, hypertension and GERD previously on hospice, revoked so that the patient could receive full treatment in the hospital presents to the emergency department for evaluation of blood through her GJ tube. The patient's granddaughter is bedside who states that during her feed earlier today she noted a significant amount of bright red blood coming out of the patient's feeding tube. She also reports dark, tarry stools for the past 2- 3 days. The patient was admitted to [facility] earlier this month, underwent an ERCP that her granddaughter said was "unsuccessful." She was then transferred to rehab and return to home after 2-1/2 weeks and rehab. The patient is largely bedbound. She has no complaints at this time. Denies chest pain or shortness of breath. States her abdominal pain is baseline at 5/10. No fever/chills. No focal neurologic deficits. Patient update on day of discharge: Patient seen and examined laying in bed, family at bedside Patient denies shortness of breath, states that she is just thirsty and wants some apple juice. Patient also complained of pain in the abdominal area, stated ready for another pain medication. Patient denies any nausea or vomiting. Discussed with nursing. Patient denies any fever or chills. DS: Diagnosis Discharge Diagnosis (1) Anemia: Status: Chronic (2) Acute GI bleeding: Status: Acute DS: Summary 82-year-old female with a past medical history significant for CKD stage III, chronic pancreatitis with GJ tube, hypertension and GERD previously on hospice Acute GI bleed due to likely NSAID use Pyloric medium size ulcer seen by EGD -Patient with bright red blood coming out her feeding tube and Hemoccult positive in the emergency department -Transfuse 1 unit packed red blood cells for hemoglobin of 8.0 on admission , symptomatic. H&H stable -Gastroenterology consulted, appreciate assistance. S/p EGD -IV Protonix changed to p.o. at discharge, continue PPI p.o. at discharge. Patient to have results of biopsy and review as OP with GI -Started tube feedings at goal of 45 cc currently tolerates well -Stop NSAIDs -continue carafate -change malfunctioning peg Tube today. may DC with Hospice care after peg tube changed Chronic pancreatitis -Patient with a long history of recurrent idiopathic pancreatitis for which she has been hospitalized many times -History of biliary stent and GJ tube -Continue home [place] Acute renal failure in the setting of chronic kidney disease -Possibly related to NSAIDs use -Patient with history of CKD stage III, baseline creatinine 2-3. Kidney function back to baseline -BUN/Creatinine 132/4.82 on 11/15/18. Creatinine/BUN is improving -Follows with Dr. Melara -Renal ultrasound reviewed -Continue IV fluid hydration -Monitor kidney function closely. Hypertension/GERD -Continue home medications Chronic leukocytosis, most consistent with a leukemoid reaction. -She has had fluctuating white blood cell counts for several years that usually coincide with a hospital admissions. - Has been worked extensively in the past, was evaluated by Dr Perea hem/onc -Monitor cbc Chronic pain resume home meds -Physician deconditioning: Consult PT for gait training DVT ppx: Holding pharmacologic anticoagulation for active GI bleed Time Spent with Patient Total time spent providing and/or coordinating discharge services: Quality: VTE Deep Vein Thrombosis/Pulmonary Embolism Present on Admission: No Exam Narrative Exam Narrative: GENERAL: Pleasant elderly looking 82 years old female, laying in bed, alert and oriented in no acute distress SKIN: Warm and dry. HEAD: Atraumatic. Normocephalic. NECK: Trachea midline. No JVD. CARDIOVASCULAR: Regular rate and rhythm. RESPIRATORY: No accessory muscle use. Clear to auscultation. Breath sounds equal bilaterally. GASTROINTESTINAL: Abdomen soft, non-tender, nondistended. Hepatic and splenic margins not palpable. Left upper quadrant PEG tube in place MUSCULOSKELETAL: Extremities without clubbing, cyanosis, or edema. No obvious deformities. NEUROLOGICAL: Awake and alert. No obvious cranial nerve deficits. Generalized weakness, moving all 4 extremities with 3 out of 5 strength. Normal speech. PSYCHIATRIC: Flat mood and affect; insight and judgment normal. Results Completed studies during hospitalization: Pending at discharge 11/17/18 13:07 Surgical [PTH] Routine Labs on day of discharge: Labs from last 24 hours 11/22/18 05:54 Sodium 148 H Potassium 3.9 Chloride 120 H Carbon Dioxide 19.7 L Anion Gap 8 BUN 58 H Creatinine 2.95 H Estimated GFR 18 L Random Glucose 87 Calcium 8.8 Phosphorus 2.9 Albumin 2.1 L Impressions ITS Impressions Chest X-Ray 11/15/18 18:10 CONCLUSION: Subsegmental basilar airspace disease. No effusion or pneumothorax. Abdomen/Bladder Ultrasound 11/16/18 00:00 CONCLUSION: 1. Small echogenic kidneys without hydronephrosis or mass. Discharge Plan Discharge Disposition Patient Disposition: 50 Hospice/Home Discharge Condition Condition: Fair Discharge Order Discharge Orders: Discharge Order (Routine); Ordered 11/21/18 Ordered By: Lalita Howard Nephrology Clear for Discharge (Routine); Ordered 11/21/18 Ordered By: Samson Kennedy Discharge Details Anticipated Discharge Date: 11/22/18 Discharge Comment: DC to home with hospice when arrangements are done Physicians Team ED Provider: [facility] Midlevel Provider: Quintin Ty Primary Care Provider: Hong Peterson Attending Provider: Presley Ascencio Other Providers: Samson Kennedy ; Yared Musa V Rxs /Orders / Referrals /Forms Prescriptions: Continue magnesium hydroxide [[place]ley Milk of Magnesia] 311 mg Tablet,Chewable 311 mg PO QID PRN (Reason: Constipation) RF: 0 metoprolol tartrate 25 mg Tablet 25 mg PO BID RF: 0 [id number]-aetynff [Creon] 12,000-38,000 -60,000 unit Capsule,Delayed Release(Dr/Ec) 1 tab PO TIDPC RF: 0 pantoprazole 40 mg Tablet,Delayed Release (Dr/Ec) 40 mg PO BID RF: 0 sucralfate 1 gram Tablet 1 g PO TID RF: 0 prednisone 10 mg Tablet 10 mg PO DAILY Qty: 5 RF: 0 ursodiol [Actigall] 300 mg Capsule 300 mg PO BID RF: 0 water for injection, sterile Parenteral Solution 200 ml G-Tube Q6HR RF: 0 duloxetine [Cymbalta] 20 mg Capsule,Delayed Release(Dr/Ec) 20 mg PO DAILY RF: 0 nifedipine 30 mg Tablet Extended Release 24hr 30 mg PO BID Qty: 60 RF: 0 prednisone 20 mg Tablet 20 mg PO DAILY Qty: 10 RF: 0 calcium carbonate 200 mg calcium (500 mg) Tablet,Chewable 500 mg CHEW BID RF: 0 hydrocodone-acetaminophen [[place]] 5-325 mg Tablet 1 tab PO Q4H PRN (Reason: Pain) Qty: 30 RF: 0 morphine 15 mg Tablet Extended Release 12hr 15 mg PO BID PRN (Reason: Pain) RF: 0 Referrals: Hong Peterson MD [Primary Care Provider] - See Instructions Status ED Status: Left Department
[2018-11-22] MEDS ORDERED: fentaNYL Citrate Inj 250 MCG/5 ML Ampul ONE (14:52)
--- NOTE | 2018-11-22 15:14 | P.PNNP ---
Subjective Interval history: Seen in AM. Patient denies any SOB. Reports abdominal pain and nausea. Creatinine at 2.95 today. <Shreya Tejeda - Last Filed: 11/22/18 15:10> Physical Exam Vital signs: Vital Signs 11/21/18 16:00 11/21/18 20:11 11/21/18 22:00 Temperature 99.0 F 98.8 F Pulse Rate 112 H 109 H 116 H Respiratory Rate 15 18 Blood Pressure 137/63 142/73 H Pulse Oximetry 99 98 11/22/18 00:00 11/22/18 00:20 11/22/18 01:12 Temperature 98.1 F Pulse Rate 106 H 104 H Respiratory Rate 17 18 Blood Pressure 131/66 Pulse Oximetry 100 11/22/18 04:00 11/22/18 04:02 11/22/18 05:42 Temperature 98.3 F Pulse Rate 108 H 113 H Respiratory Rate 18 18 Blood Pressure 135/80 Pulse Oximetry 99 11/22/18 08:00 11/22/18 12:00 Temperature 99.3 F 98.3 F Pulse Rate 111 H 93 H Respiratory Rate 18 Blood Pressure 123/77 136/73 Pulse Oximetry 97 98 Intake & Output 11/21/18 11/22/18 11/22/18 18:59 06:59 18:59 Intake Total 1000 / 1000 240 / 240 Balance 1000 / 1000 240 / 240 Weight 60.8 kg Intake: IV 1000 / 1000 NS Inj 1,000 ML @ 100 mls/hr IV 1000 / 1000 .CONT .Q10H HITESH Rx#:[id number] Oral 240 / 240 Other: # Incontinent Voids 5 # Urine Diapers 3 Date of Last Bowel Movement 11/20/18 11/20/18 11/21/18 # Bowel Movements 1 0 Narrative: GENERAL: alert and oriented. SKIN: Warm and dry. NECK: Supple, trachea midline. No JVD CARDIOVASCULAR: Regular rate and rhythm without murmurs, gallops, or rubs. RESPIRATORY: Breath sounds equal bilaterally. No accessory muscle use. GASTROINTESTINAL: Abdomen soft, non-tender, nondistended. G tube present. +BS MUSCULOSKELETAL: No cyanosis, or edema. BACK: Nontender without obvious deformity. No CVA tenderness. <Shreya Tejeda - Last Filed: 11/22/18 15:10> Vital signs: Vital Signs 11/21/18 22:00 11/22/18 00:00 11/22/18 00:20 Temperature 98.1 F Pulse Rate 116 H 106 H 104 H Respiratory Rate 17 Blood Pressure 131/66 Pulse Oximetry 100 11/22/18 01:12 11/22/18 04:00 11/22/18 04:02 Temperature 98.3 F Pulse Rate 108 H 113 H Respiratory Rate 18 18 Blood Pressure 135/80 Pulse Oximetry 99 11/22/18 05:42 11/22/18 08:00 11/22/18 12:00 Temperature 99.3 F 98.3 F Pulse Rate 111 H 93 H Respiratory Rate 18 18 Blood Pressure 123/77 136/73 Pulse Oximetry 97 98 11/22/18 16:00 Temperature 98.8 F Pulse Rate 109 H Respiratory Rate 18 Blood Pressure 139/66 Pulse Oximetry 97 Intake & Output 11/22/18 11/22/18 11/23/18 06:59 18:59 06:59 Intake Total 240 / 240 480 / 480 Balance 240 / 240 480 / 480 Weight 60.8 kg Intake: Oral 240 / 240 480 / 480 Other: # Voids 3 # Incontinent Voids 5 Date of Last Bowel Movement 11/20/18 11/21/18 # Bowel Movements 0 1 <Samson Kennedy - Last Filed: 11/22/18 21:08> Assessment and Plan - Assessment (1) Acute kidney injury Code(s): N17.9 - Acute kidney failure, unspecified Status: Acute Plan: WAYNE on CKD Acute on chronic kidney disease with a creatinine of 4.82 on day of consult Baseline creatinine in 2.2 to 2.5. WAYNE possible prerenal vs ATN from poor intake and or NSAID use. Renal ultrasound with small echogenic kidneys. Creatinine improvin.8- -> 3.2 -> 3.0 ->2.9 ->2.9 Fluids encouraged. Avoid nephrotoxins including NSAIDs and IV contrast. fluid and electrolytes stable. Discharge plans underway will need follow up with Nephrology outpatient. (2) Acute GI bleeding Code(s): K92.2 - Gastrointestinal hemorrhage, unspecified Status: Acute Plan: GI consult. Protonix. S/P EGD HGB stable, transfused on 11/15 <Shreya Tejeda - Last Filed: 11/22/18 15:10> - Assessment (1) Acute kidney injury Code(s): N17.9 - Acute kidney failure, unspecified Status: Acute Plan: Patient seen and examine, agree with above. Has improvement in the Creatinine, now for discharge. Patient will follow with Dr. Melara. (2) Acute GI bleeding Code(s): K92.2 - Gastrointestinal hemorrhage, unspecified Status: Acute <Samson Kennedy - Last Filed: 11/22/18 21:08>
[2018-11-22] MEDS ORDERED: Iohexol 350 MG/ML 50 ML Vial (for Rad Diag) G-TUBE ONE (15:40)
--- NOTE | 2018-11-22 16:03 | IR ---
EXAM DATE: 11/22/2018 4:00 PM EST AGE/SEX: 82 years / Female INDICATIONS: Patient presents with clogged Gastrojejunostomy feeding tube in need of an exchanged fe eding tube. CLINICAL DATA: This is the patient's initial encounter. Patient reports that signs and symptoms have been present for 1 day and indicates a pain score of Nonresponsive. MEDICAL/SURGICAL HISTORY: Gastroesophageal reflux disease. Hypertension. Anxiety, CKD (chronic kidney disease) stage 3, History of blood transfusion reaction, Idiopathic pancreatitis. Cholecyste ctomy. left total knee replacement, ERCP, Biliary stent. COMPARISON: [facility] [place], KIDNEY/RENAL/BLADDER, 11/16/2018. . FLUORO TIME (min): 0.9 IMAGE SERIES: 1 RADIATION DOSE: 10.5 mGY CAK CONTRAST (cc): 10 Omnipaque (iohexol) 350 DEVICE(S): 22 [place] Transgastric tube BRITTNEY 45 cm . . PROCEDURE: 1. Fluoroscopically guided gastrojejunostomy tube exchange. 2. Conscious sedation with continuous EKG and oximetry monitoring. The risks, benefits and alternatives to the procedure were explained and verbal and written consent w as obtained. The site was prepped in sterile fashion. Full sterile technique was used, including ca p, mask, sterile gloves and gown and a large sterile sheet. Hand hygiene and 2% chlorhexidine and/or betadine/alcohol prep was utilized per protocol for cutaneous antisepsis. The skin and subcutaneous tissues were infiltrated with local anesthetic solution. With fluoroscopic guidance a guidewire was passed through the previous gastrojejunostomy tube and a f resh tube was placed over the guidewire. The balloon was inflated with appropriate volume of saline. Injection of positive contrast demonstrates good position of the gastric and jejunal lumens of the tube. Conscious sedation was performed with the prescribed dosages and duration as above in the presence of an independent trained radiology nurse to assist in the monitoring of the patient. EKG and oximetry remained stable throughout the procedure. The patient tolerated the procedure well and there were n o complications. The patient was sent to post anesthesia recovery in stable condition. CONCLUSION: 1. Uncomplicated gastrojejunostomy tube exchange as above. Electronically signed by: Bhavin Montemayor MD Board Certified Radiologist 11/22/2018 4:01 PM EST
[2018-11-22 17:21] VITALS: BP 139/66; PULSE 109; TEMP 98.8; O2SAT 97
== END 2018-11-22 18:19 | disposition hospice, home (50) | DRG 377 ==
LOC: NEPC 17:58 → NEDA 21:23 → N06 23:33
PROVIDERS: ADMIT Internal Medicine; ATTEND Internal Medicine
PROC: PANENDO (2018-11-17 11:40)
DX: D62 Acute posthemorrhagic anemia; Z74.01 Bed confinement status; Z93.1 Gastrostomy status; N17.0 Acute kidney failure with tubular necrosis; I12.9 Hypertensive chronic kidney disease with stage 1 through stage 4 chronic kidney disease, or unspecified chronic kidney disease; R51 Headache; Z51.5 Encounter for palliative care; R32 Unspecified urinary incontinence; Z96.652 Presence of left artificial knee joint; K44.9 Diaphragmatic hernia without obstruction or gangrene; N18.3 Chronic kidney disease, stage 3 (moderate); F41.9 Anxiety disorder, unspecified; K21.9 Gastro-esophageal reflux disease without esophagitis; K25.0 Acute gastric ulcer with hemorrhage; D72.823 Leukemoid reaction; K86.1 Other chronic pancreatitis
CPT/HCPCS: 36430; 49452; 71010; 71045; 76775; 76937; 80048; 80053; 80069; 81001; 82570; 82728; 83540; 83550; 83690; 83935; 84300; 84484; 85025; 85610; 85730; 86850; 86900; 86901; 86923; 87086; 88305; 88312; 90761; 90774; 90784; 93005; 96361; 96374; 97110; 97161; 97530; 99285; A4646; C1769; C1874; C8952; C9113; J0780; J2270; J2405; J3010; J7030; J7040; P9016; Q9950; Q9965; Q9967

== ENCOUNTER 2018-12-28 16:58 | Inpatient (IN) ==
--- NOTE | 2018-12-28 18:54 | XR ---
EXAM DATE: 12/28/2018 6:50 PM EST AGE/SEX: 83 years / Female INDICATIONS: Short of breath. CLINICAL DATA: This is the patient's initial encounter. Patient reports that signs and symptoms have been present for 1 day and indicates a pain score of Nonresponsive. MEDICAL/SURGICAL HISTORY: Non-responsive. Non-responsive. COMPARISON: [facility] – [place], CHEST 1V SINGLE AP, 11/15/2018. . FINDINGS: A single AP view of the chest demonstrates patchy parenchymal consolidations throughout the lower lob es bilaterally but more pronounced on the right. These are new. No effusions. Heart is normal in size . Bony structures are unremarkable. CONCLUSION: Patchy bilateral lower lobe infiltrates. Electronically signed by: Stephan Alegria MD Board Certified Radiologist 12/28/2018 6:53 PM EST
[2018-12-28] MEDS ORDERED: Sodium Chlor 0.9% Inj 500 ML IV.SIG SCH ×2 (19:00→22:00)
[2018-12-28] MEDS ORDERED: Azithromycin Inj 500 MG in Sodium Chlor 0.9% Inj 250 ML IV.SIG ONE (19:06)
[2018-12-28] MEDS ORDERED: Sod Chloride 0.9% Inj 1,000 ML IV.SIG SCH (19:15)
--- NOTE | 2018-12-28 19:38 | CT ---
EXAM DATE: 12/28/2018 7:32 PM EST AGE/SEX: 83 years / Female INDICATIONS: Altered mental status. CLINICAL DATA: This is the patient's initial encounter. Patient reports that signs and symptoms have been present for 1 day and indicates a pain score of 0/10. MEDICAL/SURGICAL HISTORY: Renal failure, chronic. Hypertension. . G Tube. RADIATION DOSE: 34.17 CTDI (mGy) COMPARISON: [place], CT HEAD W/O CONTRAST, 07/02/2018. . TECHNIQUE: CT of the head without contrast. Using automated exposure control and adjustment of the mA and/or kV according to patient size, radiation dose was kept as low as reasonably achievable to ob tain optimal diagnostic quality images. DICOM format image data is available electronically for revi ew and comparison. FINDINGS: Cerebrum: Bifrontal atrophy is noted. No evidence of midline shift, mass lesion, hemorrhage or acute infarction. No extraaxial fluid collections are seen. Posterior Fossa: The cerebellum and brainstem are intact. The 4th ventricle is midline. The cerebe llopontine angle is unremarkable. Extracranial: The visualized portion of the orbits is intact. Skull: The calvaria is intact. No evidence of skull fracture. CONCLUSION: 1. No acute intracranial abnormality. 2. Bifrontal atrophy. . Electronically signed by: Jonah Augirre MD Board Certified Radiologist 12/28/2018 7:37 PM EST
--- NOTE | 2018-12-28 20:45 | ED ---
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 They state that she is slightly less responsive than her baseline. No fevers that they are aware of. No new pain that they are aware of. She did almost fall yesterday and they do not believe she hit her head but they were not there with her at the time and are not sure. She is on hospice but for acutely reversible conditions they do wish for her to be treated. Onset (ago): day(s) Severity: moderate Relieving factors: none Exacerbating factors: none Associated symptoms: Reports confusion Treatments prior to arrival: Reports none Related Data Home Medications Medication Instructions Recorded Confirmed [id number] [Creon] 1 tab PO TIDPC 05/16/18 12/28/18 magnesium hydroxide [[place] Milk 311 mg PO QID PRN 05/16/18 12/28/18 of Magnesia] metoprolol tartrate 25 mg PO BID 05/16/18 12/28/18 pantoprazole 40 mg PO BID 05/16/18 12/28/18 sucralfate 1 g PO TID 05/16/18 12/28/18 morphine 15 mg PO BID PRN 11/18/18 12/28/18 Previous Rx's Medication Instructions Recorded duloxetine [Cymbalta] 20 mg PO DAILY cap 07/13/18 prednisone 10 mg PO DAILY #5 tab 07/13/18 ursodiol [Actigall] 300 mg PO BID cap 07/13/18 water for injection, sterile 200 ml G-TUBE Q6HR ml 07/13/18 calcium carbonate 500 mg CHEW BID tab 08/25/18 hydrocodone-acetaminophen [[place]] 1 tab PO Q4H PRN #30 tab 08/25/18 nifedipine 30 mg PO BID #60 tab 08/25/18 prednisone 20 mg PO DAILY #10 tab 08/25/18 Allergies Allergy/AdvReac Type Severity Reaction Status Date / Time No Known Allergies Allergy Verified 11/15/18 23:46 Review of Systems ROS: all other systems reviewed are negative [facility] Medical History Medical History Anxiety (Acute) CKD (chronic kidney disease) stage 3, GFR 30-59 ml/min (Acute) Encounter for gastrojejunal (GJ) tube placement (Acute) GERD (gastroesophageal reflux disease) (Acute) Hx of blood transfusion reaction (Acute) Hypertension (Acute) Idiopathic pancreatitis (Acute) Pancreatitis (Acute) Surgical History Surgical History History of total left knee replacement (TKR) (Acute) Hx of cholecystectomy (Acute) S/P ERCP (Acute) Family History Family History Other Has 1 child Has 1 living child Social History Social History Substance History: No History of Abuse Second Hand Smoke Exposure: No Smoking Status: Never smoker How Often Do You Have a Drink Containing Alcohol: Never Recent Travel in [facility] within the Last 8 Weeks: No Recent Out of Country Travel within the Last 8 Weeks: No Immunization History Tetanus Immunization: Unsure Exam Narrative Exam Narrative: GENERAL: Cachectic ill-appearing female in no acute respiratory distress SKIN: Focused skin assessment warm/dry. HEAD: Atraumatic. Normocephalic. EYES: Pupils equal and round. No scleral icterus. No injection or drainage. ENT: No nasal bleeding or discharge. Mucous membranes pink and moist. NECK: Trachea midline. No JVD. CARDIOVASCULAR: Tachycardic but regular. No murmur appreciated. RESPIRATORY: Crackles and coarse breath sounds throughout with some tachypnea GASTROINTESTINAL: Abdomen soft, non-tender, nondistended. MUSCULOSKELETAL: No obvious deformities. No clubbing. No cyanosis. No edema. NEUROLOGICAL: Awake and alert. Follows some commands and has some spontaneous movements in addition to localizing to pain. Eyes are open but she is not speaking. PSYCHIATRIC: Unable to determine. Course Initial Documented Vital Signs Pulse Rate 120 H 12/28/18 18:21 Respiratory Rate 27 H 12/28/18 18:21 Blood Pressure 107/59 L 12/28/18 18:21 Pulse Oximetry 95 12/28/18 18:21 Last Documented Vital Signs Pulse Rate 105 H 12/28/18 22:24 Respiratory Rate 20 12/28/18 22:24 Blood Pressure 117/54 L 12/28/18 22:24 Pulse Oximetry 97 12/28/18 22:24 Medical Decision Making MDM Narrative Medical decision making narrative: Patient is a 83 yof who presents with dyspnea and tachypnea. She was tachycardic and tachypneic on arrival and sepsis protocol was initiated. Bedside ultrasound did not show a collapsing IVC nor plethoric IVC. Chest x-ray does show pneumonia and she was given vancomycin, cefepime, azithromycin as she was admitted to the hospital a month ago. Labs reveal leukocytosis and acute kidney injury. Her mental status has been GCS of 10-11 with her appearing more awake after given fluids. She has been admitted to Dr. Sanders, hospitalist multifocal button inspector, for further evaluation and management. Medical Screen Exam Complete: Yes Emergency Medical Condition: Yes Differential Diagnosis Differential Diagnosis: Differential diagnosis includes but is not limited to sepsis, pneumonia, CHF exacerbation, intracranial injury, stroke. Medical Records Medical records reviewed: Yes I reviewed the patient's medical records. Lab Data Lab results reviewed: Yes I reviewed the patient's lab results. Result diagrams: 12/28/18 20:26 12/28/18 20:26 Lab Results 12/28/18 12/28/18 12/28/18 Range/Units 20:26 20:26 20:26 WBC 26.7 H (4.0-11.0) th/mm3 RBC 3.20 L (4.00-5.30) mil/mm3 Hgb 9.2 L (11.6-15.3) gm/dL Hct 28.1 L (35.0-46.0) % MCV 87.8 (80.0-100.0) fL MCH 28.7 (27.0-34.0) pg MCHC 32.7 (32.0-36.0) % RDW 16.9 (11.6-17.2) % Plt Count 397 (150-450) th/mm3 MPV 9.2 (7.0-11.0) fL Neut % (Auto) 92.4 H (16.0-70.0) % Lymph % (Auto) 2.2 L (9.0-44.0) % [place] % (Auto) 5.1 (0.0-8.0) % Eos % (Auto) 0.1 (0.0-4.0) % Baso % (Auto) 0.2 (0.0-2.0) % Neut # (Auto) 24.7 H (1.8-7.7) th/mm3 Lymph # (Auto) 0.6 L (1.0-4.8) th/mm3 [place] # (Auto) 1.3 H (0.0-0.9) th/mm3 Eos # (Auto) 0.0 (0.0-0.4) th/mm3 Baso # (Auto) 0.0 (0.0-0.2) th/mm3 WBC Differential . Differential Comment Auto diff final Sodium 135 L (136-145) meq/L Potassium 4.4 (3.5-5.1) meq/L Chloride 99 (98-107) meq/L Carbon Dioxide 17.3 L (21.0-32.0) meq/L Anion Gap 19 H (5-15) meq/L BUN 287 H (7-18) mg/dL Creatinine 5.91 H (0.50-1.00) mg/dL Estimated GFR 8 L (>89) mL/min Random Glucose 105 (74-106) mg/dL Lactic Acid (0.4-2.0) mmol/L Calcium 9.2 (8.5-10.1) mg/dL Total Bilirubin 0.2 (0.2-1.0) mg/dL AST 17 (15-37) U/L ALT 35 (10-53) U/L Alkaline Phosphatase 102 (45-117) U/L Ammonia 51 H (11-32) mcmol/L Troponin I Less than 0.02 L (0.02-0.05) ng/mL B-Natriuretic Peptide (0-100) pg/mL Total Protein 8.0 (6.4-8.2) g/dL Albumin 2.4 L (3.4-5.0) g/dL 12/28/18 12/28/18 Range/Units 20:26 20:28 WBC (4.0-11.0) th/mm3 RBC (4.00-5.30) mil/mm3 Hgb (11.6-15.3) gm/dL Hct (35.0-46.0) % MCV (80.0-100.0) fL MCH (27.0-34.0) pg MCHC (32.0-36.0) % RDW (11.6-17.2) % Plt Count (150-450) th/mm3 MPV (7.0-11.0) fL Neut % (Auto) (16.0-70.0) % Lymph % (Auto) (9.0-44.0) % [place] % (Auto) (0.0-8.0) % Eos % (Auto) (0.0-4.0) % Baso % (Auto) (0.0-2.0) % Neut # (Auto) (1.8-7.7) th/mm3 Lymph # (Auto) (1.0-4.8) th/mm3 [place] # (Auto) (0.0-0.9) th/mm3 Eos # (Auto) (0.0-0.4) th/mm3 Baso # (Auto) (0.0-0.2) th/mm3 WBC Differential Differential Comment Sodium (136-145) meq/L Potassium (3.5-5.1) meq/L Chloride (98-107) meq/L Carbon Dioxide (21.0-32.0) meq/L Anion Gap (5-15) meq/L BUN (7-18) mg/dL Creatinine (0.50-1.00) mg/dL Estimated GFR (>89) mL/min Random Glucose (74-106) mg/dL Lactic Acid 2.5 H (0.4-2.0) mmol/L Calcium (8.5-10.1) mg/dL Total Bilirubin (0.2-1.0) mg/dL AST (15-37) U/L ALT (10-53) U/L Alkaline Phosphatase (45-117) U/L Ammonia (11-32) mcmol/L Troponin I (0.02-0.05) ng/mL B-Natriuretic Peptide 125 H (0-100) pg/mL Total Protein (6.4-8.2) g/dL Albumin (3.4-5.0) g/dL Imaging Data Attestation: I personally reviewed and interpreted this imaging study as follows : Radiologist's impression: Chest X-Ray 12/28/18 18:28 CONCLUSION: Patchy bilateral lower lobe infiltrates. Head CT 12/28/18 18:52 CONCLUSION: 1. No acute intracranial abnormality. 2. Bifrontal atrophy. . Discharge Plan Discharge Disposition Patient Disposition: ED Admit(ED Internal Use Only) Discharge Condition Condition: Fair Discharge Order Discharge Orders: ED Use Only Admit Order (Routine); Ordered 12/28/18 Ordered By: Harmony Marrero Discharge Details Diagnosis: Pneumonia, WAYNE (acute kidney injury), Sepsis Physicians Team ED Provider: Harmony Marrero Primary Care Provider: Hong Peterson Attending Provider: Alexander Eddy Other Providers: Samson Kennedy Franklyn Discharge Interventions Interventions: Vital Signs Last Done: 12/28/18 18:21 Status ED Status: Admitted Patient
[2018-12-28] MEDS: Vancomycin Inj 1,000 MG in Sodium Chlor 0.9% Inj 250 ML IV.SIG ONE ×2 (21:06→22:08)
[2018-12-28 21:07] LABS: Baso % (Auto) 0.2 % (0.0-2.0); Eos % (Auto) 0.1 % (0.0-4.0); Hematocrit 28.1 % (35.0-46.0); Hemoglobin 9.2 gm/dL (11.6-15.3); Lymph # (Auto) 0.6 th/mm3 (1.0-4.8); Lymph % (Auto) 2.2 % (9.0-44.0); Mean Corpuscular HGB Conc 32.7 % (32.0-36.0); Mean Corpuscular Hemoglobin 28.7 pg (27.0-34.0); Mean Corpuscular Volume 87.8 fL (80.0-100.0); Mean Platelet Volume 9.2 fL (7.0-11.0); Mono # (Auto) 1.3 th/mm3 (0.0-0.9); Mono % (Auto) 5.1 % (0.0-8.0); Neut # (Auto) 24.7 th/mm3 (1.8-7.7); Neut % (Auto) 92.4 % (16.0-70.0); Platelet Count 397 th/mm3 (150-450); Red Cell Distribution Width 16.9 % (11.6-17.2); White Blood Count 26.7 th/mm3 (4.0-11.0)
[2018-12-28 21:42] LABS: Alkaline Phosphatase 102 U/L (45-117); Blood Urea Nitrogen 287 mg/dL (7-18)
[2018-12-28 21:43] LABS: Alanine Aminotransferase 35 U/L (10-53); Albumin 2.4 g/dL (3.4-5.0); Anion Gap 19 meq/L (5-15); Aspartate Aminotransferase 17 U/L (15-37); Calcium 9.2 mg/dL (8.5-10.1); Carbon Dioxide 17.3 meq/L (21.0-32.0); Chloride 99 meq/L (98-107); Glomerular Filtration Rate 8 mL/min (>89); Glucose,Random 105 mg/dL (74-106); Potassium 4.4 meq/L (3.5-5.1); Sodium 135 meq/L (136-145)
[2018-12-28] MEDS ORDERED: Acetaminophen 325 MG Tablet PO PRN (22:10)
[2018-12-28] MEDS ORDERED: Bisacodyl 10 MG Supp RECTAL PRN (22:10)
[2018-12-28] MEDS: Sod Chloride 0.9% Inj 1,000 ML IV.CONT SCH (23:47)
[2018-12-29] MEDS ORDERED: Sennosides Liq 8.8 MG/5 ML UDC G-TUBE PRN (03:45)
[2018-12-29] MEDS: Sod Chloride 0.9% Inj 1,000 ML IV.CONT SCH ×2 (06:28→15:01)
[2018-12-29 07:28] LABS: Baso % (Auto) 0.1 % (0.0-2.0); Eos % (Auto) 0.3 % (0.0-4.0); Hematocrit 21.9 % (35.0-46.0); Hemoglobin 7.1 gm/dL (11.6-15.3); Lymph # (Auto) 0.6 th/mm3 (1.0-4.8); Lymph % (Auto) 3.2 % (9.0-44.0); Mean Corpuscular HGB Conc 32.4 % (32.0-36.0); Mean Corpuscular Hemoglobin 28.6 pg (27.0-34.0); Mean Corpuscular Volume 88.3 fL (80.0-100.0); Mean Platelet Volume 8.6 fL (7.0-11.0); Mono # (Auto) 1.1 th/mm3 (0.0-0.9); Mono % (Auto) 6.3 % (0.0-8.0); Neut # (Auto) 16.6 th/mm3 (1.8-7.7); Neut % (Auto) 90.1 % (16.0-70.0); Platelet Count 296 th/mm3 (150-450); Red Blood Count 2.48 mil/mm3 (4.00-5.30); Red Cell Distribution Width 17.1 % (11.6-17.2); White Blood Count 18.4 th/mm3 (4.0-11.0)
[2018-12-29 08:05] LABS: Calcium 8.1 mg/dL (8.5-10.1); Carbon Dioxide 14.2 meq/L (21.0-32.0)
[2018-12-29] MEDS: Senna/Docusate Sodium 8.6/50 MG Tablet G-TUBE SCH ×2 (09:17→22:39)
--- NOTE | 2018-12-29 09:38 | P.HPIM ---
History of Present Illness Primary Care Physician: Hong Peterson MD Chief Complaint: weird breathing History of Present Illness: Ms. Larsen is an 82 y/o AAF with recurrent idiopathic pancreatitis, GERD, hypertension. She has been hospitalized numerous times for issues with pain control related to recurrent pancreatitis. Most recent hospitalization November 15, 2018 until November 22, 2018 for acute GI bleed , chronic pancreatitis acute on chronic renal failure. Patient currently nonverbal and unable to provide meaningful information. Information gathered from prior charting and physical exam. Patient presented to the ER with complaints of "weird breathing." Family states that her breathing has been different and appearing more labored since last night or this morning. They state that she is slightly less responsive than her baseline. No fevers that they are aware of. No new pain that they are aware of. She did almost fall yesterday and they do not believe she hit her head but they were not there with her at the time and are not sure. She was on hospice recently but family no longer wants Hospice and would like aggressive care. Medical History: Anxiety CKD (chronic kidney disease) stage 3, GFR 30-59 ml/min Encounter for gastrojejunal (GJ) tube placement GERD (gastroesophageal reflux disease) Hypertension Idiopathic pancreatitis Pancreatitis Surgical History: History of total left knee replacement (TKR) Hx of cholecystectomy S/P ERCP Social History: Patient lives at home with her daughter Denies ETOH use or tobacco use Family History: Family history reviewed non-contributory Inpatient Certification Inpatient Certification: I certify that the inpatient services were ordered in accordance with Medicare regulations governing the order. This includes certification that hospital inpatient services are reasonable and necessary and in the case of services not specified as inpatient-only under 42 CFR 419.22(n), that they are appropriately provided as inpatient services in accordance to with the 2-midnight benchmark under 43 CFR 412.3(e) Estimated Total Length of Stay (Days): 3 Plans for Post Hospital Care: Home health Medications and Allergies Allergies Allergy/AdvReac Type Severity Reaction Status Date / Time No Known Allergies Allergy Verified 11/15/18 23:46 Home Medications Medication Instructions Recorded Confirmed Type dpseyj-esijttdr-sbayjva [Creon] 1 tab PO TIDPC 05/16/18 12/28/18 History magnesium hydroxide [Presley Milk 311 mg PO QID PRN 05/16/18 12/28/18 History of Magnesia] metoprolol tartrate 25 mg PO BID 05/16/18 12/28/18 History pantoprazole 40 mg PO BID 05/16/18 12/28/18 History sucralfate 1 g PO TID 05/16/18 12/28/18 History morphine 15 mg PO BID PRN 11/18/18 12/28/18 History Active Medications: Active Medications Acetaminophen (Tylenol Liq) 650 mg G-TUBE Q4H PRN PRN Reason: Temp > 100.4 Al Hydroxide/Mg Hydroxide (Milk Of Magnesia Liq) 30 ml G-TUBE Q12H PRN PRN Reason: Mild Constipation Bisacodyl (Dulcolax Supp) 10 mg RECTAL DAILY PRN PRN Reason: SEVERE CONSITIPATION Azithromycin 500 mg/ Sodium (Chloride) 250 mls @ 250 mls/hr IV.SIG Q24H HITESH Cefepime HCl 2,000 mg/ Sodium (Chloride) 100 mls @ 200 mls/hr IV.SIG Q12H [facility] Last Infusion: 12/29/18 07:07 Dose: Infused Sodium Chloride (Ns Inj) 1,000 mls @ 125 mls/hr IV.CONT .Q8H [facility] Last Infusion: 12/29/18 09:12 Dose: Infused Lactulose (Lactulose Liq) 30 ml G-TUBE DAILY PRN PRN Reason: SEVERE CONSITIPATION Ondansetron HCl (Zofran Inj) 4 mg IV.PUSH Q6H PRN PRN Reason: NAUSEA OR VOMITING Senna/Docusate Sodium (Mattie-Colace) 1 tab G-TUBE BID [facility] Last Admin: 12/29/18 09:17 Dose: 1 tab Sennosides (Senna Liq) 17.2 mg G-TUBE Q12H PRN PRN Reason: Moderate Constipation Sodium Chloride (Ns Flush) 2 ml IV.FLUSH PRN PRN PRN Reason: FLUSH AFTER USING IV ACCESS Sodium Chloride (Ns Flush) 2 ml IV.FLUSH BID [facility] Last Admin: 12/29/18 09:17 Dose: 2 ml Physical Exam Vital signs: Last Vital Signs Temp 97 F L 12/29/18 08:00 Pulse 97 H 12/29/18 08:00 Resp 16 12/29/18 08:00 BP 114/56 L 12/29/18 08:00 Pulse Ox 97 12/29/18 08:00 Results Labs CBC & Chem 7: 01/01/19 07:51 01/01/19 07:51 Caprini VTE Risk Assessment Bartolorini VTE Risk Assessment: Moderate/High Risk (score >= 2) Bartolorini Risk Assessment Model: Point Value = 1 Point Value = 2 Point Value = 3 Point Value = 5 Age 41-60 Minor surgery BMI > 25 kg/m2 Swollen legs Varicose veins or History of unexplained or recurrent spontaneous Oral contraceptives or hormone replacement Sepsis (< 1 month) Serious lung disease, including pneumonia (< 1 month) Abnormal pulmonary function Acute myocardial infarction Congestive heart failure (< 1 month) History of inflammatory bowel disease Medical patient at bed rest Age 61-74 Arthroscopic surgery Major open surgery (> 45 min) Laparoscopic surgery (> 45 min) Malignancy Confined to bed (> 72 hours) Immobilizing plaster cast Central venous access Age >= 75 History of VTE Family history of VTE Factor V Leiden Prothrombin [id number] Lupus anticoagulant Anticardiolipin antibodies Elevated serum homocysteine Heparin-induced thrombocytopenia Other congenital or acquired thrombophilia Stroke (< 1 month) Elective arthroplasty Hip, pelvis, or leg fracture Acute spinal cord injury (< 1 month) Prophylaxis Regimen: Total Risk Factor Score Risk Level Prophylaxis Regimen 0-1 Low Early ambulation 2 Moderate Order ONE of the following: *Sequential Compression Device (SCD) *Heparin 5000 units SQ BID 3-4 Higher Order ONE of the following medications: *Heparin 5000 units SQ TID *Enoxaparin/Lovenox 40 mg SQ daily (WT < 150 kg, CrCl > 30 mL/min) *Enoxaparin/Lovenox 30 mg SQ daily (WT < 150 kg, CrCl > 10-29 mL/min) *Enoxaparin/Lovenox 30 mg SQ BID (WT < 150 kg, CrCl > 30 mL/min) AND/OR *Sequential Compression Device (SCD) 5 or more Highest Order ONE of the following medications: *Heparin 5000 units SQ TID (Preferred with Epidurals) *Enoxaparin/Lovenox 40 mg SQ daily (WT < 150 kg, CrCl > 30 mL/min) *Enoxaparin/Lovenox 30 mg SQ daily (WT < 150 kg, CrCl > 10-29 mL/min) *Enoxaparin/Lovenox 30 mg SQ BID (WT < 150 kg, CrCl > 30 mL/min) AND *Sequential Compression Device (SCD) Assessment and Plan Plan Ms. Larsen is an 82 y/o AAF with recurrent idiopathic pancreatitis, GERD, hypertension and GI bleed. She has been hospitalized numerous times for issues with pain control related to recurrent pancreatitis. Most recent hospitalization November 15, 2018 until November 22, 2018 for acute GI bleed, chronic pancreatitis and acute on chronic renal failure. Patient presents with complaints of "weird breathing." Family states that her breathing has been different and appearing more labored since last night or this morning. They state that she is slightly less responsive than her baseline. No fevers that they are aware of. No new pain that they are aware of. She did almost fall yesterday and they do not believe she hit her head but they were not there with her at the time and are not sure. She was on hospice recently but family no longer wants Hospice and would like aggressive care. Sepsis possible source pna vs UTI - Shortness of breath - Chest X-Ray 12/28/18 Patchy bilateral lower lobe infiltrates. - On admission white blood cell count 26.7 -> 18.4 (12/29) - On admission lactic acid 2.5 - Patient started on azithromycin and cefepime - ID consulted - NPO with Speech consulted for swallow eval - Suplena via feeding tube with free water flush - UA reviewed urine culture pending - blood cultures pending WYANE on CKD - on admission creatinine 5.91 -> 5.19 (12/29) - IVFs - consult to nephrology, changed IVF to 1/2 NS with bicarb - avoid nephrotoxic agent - recheck BMP in AM Head CT 12/28/18 18:52 CONCLUSION: 1. No acute intracranial abnormality. 2. Bifrontal atrophy. Chronic idiopathic pancreatitis -Continue Leeds 1 tablet p.o. every 4 hours as needed for pain and home morphine 15 mg p.o. twice daily -Continue home tube feeding Suplena with goal rate 40mls/hr, with free water flush HTN (hypertension) - continue home procardia XL 30mg BID and metoprolol 25 mg p.o. twice daily with hold parameters GERD (gastroesophageal reflux disease) - PPI Anemia - hgb on admission 9.2 -> 7.1 - check occult stool - recheck hgb DVT prophylaxis with SCDs Attending Attestation The exam, history, and the medical decision-making described in the above note were completed with the assistance of the mid-level provider. I reviewed and agree with the findings presented. I attest that I had a sqzo-ij-otkh encounter with the patient on the same day, and personally performed and documented my assessment and findings in the medical record. Patient examined. Assessment and plan formulated with Olga Weiss PA-C. I agree with the above. H&P: Quality VTE Deep Vein Thrombosis/Pulmonary Embolism Present on Admission: No
[2018-12-29] MEDS ORDERED: Morphine Sulfate 15 MG IR Tablet PO PRN (10:00)
[2018-12-29 13:05] LABS: Hematocrit 28.1 % (35.0-46.0); Hemoglobin 8.8 gm/dL (11.6-15.3)
[2018-12-29 13:59] LABS: Amorphous Sediment,Urine Rare /hpf; Bacteria,Urine Many /hpf; Bilirubin,Urine Negative (Negative); Clarity,Urine Cloudy (Clear); Color,Urine Red (Yellw/Straw); Glucose,Urine (UA) Negative (Negative); Leukocyte Esterase,Urine Small (Negative); Nitrite,Urine Negative (Negative); Specific Gravity,Urine 1.012 (1.002-1.035); Squamous Epithelial Cell,Urine <1 /hpf (0-5)
[2018-12-29] MEDS: Lipase/Protease/Amylase 12/38/60 DR Capsule PO SCH ×2 (14:58→18:09)
[2018-12-29] MEDS: Sucralfate 1 GM Tablet PO SCH ×2 (14:58→18:09)
--- NOTE | 2018-12-29 16:24 | P.DIET ---
Nutritional Evaluation Type of nutrition evaluation: initial Nutrition consult regarding: Tube Feeding Screening comments: 12/29/18 TF review Subjective Subjective Comments: Pt nonverbal, unable to provide useful information. Objective - Diagnosis pneumonia, sepsis, WAYNE - Objective Body Mass Index: 21.4 % IBW: 102 (IBW = 125lb) Body Weight Used for Calculations: Actual (58.2kg) Energy Needs - Lower Range (kCal/kg): 28 Energy Needs - Upper Range (kCal/kg): 32 Lower Limit kCal/kg (kCals): 1,630 Upper Limit kCal/kg (kCals): 1,862 Lower Limit Protein Factor (Grams per Kg): 0.8 Upper Limit Protein Factor (Grams per Kg): 1.0 Lower Protein Needs (Protein): 47 Upper Protein Needs (Protein): 58 Dietitian Reviewed in Medical Record: Curent medications, Intake & Output, Labs , Medical history, Tube feeding Diet Order: NPO, TF'ing Objective Comments: PMH: CKD, HTN, idiopathic pancreatitis Meds: reviewed Labs: BUN 244, Cr 5.19, estGFR 10 Assessment Assessment: Pt currently at nutritional risk r/t diagnosis and need for TF'ing as nutrition support. ST recs reviewed, pt unable to follow directions and will remain strictly NPO. Per MD note pts was on hospice, but now pts family members want aggressive care for pt. Pt receiving TF of Suplena 1.8 @ 40mL/hr which is pts home regimen per MD. RD agree w/ Suplena 1.8 @ 40mL/hr to provide 1728kcal, 43g of protein and 708mL of free water to best meet pts nutritional needs. Continue to monitor TF tolerance. Labs reviewed, dietitian following. Recommendations: 1. RD agree w/ Suplena 1.8 @ 40mL/hr to best meet pts nutritional needs 2. Continue to monitor TF tolerance 3. Dietitian following, additional recs to follow r/t medical course Dietitian to Monitor: Lab values, Intake & Output, Tube feeding tolerance, Weight change, Swallow recommendations, Medical course
--- NOTE | 2018-12-29 16:39 | MB ---
cc: Mark Dorsey MD DATE: 12/29/2018 REQUESTING PHYSICIAN: Mary Sanders MD REASON FOR CONSULTATION: Pneumonia, severe sepsis. HISTORY OF PRESENT ILLNESS: This is an 83-year-old black female who has a history of idiopathic pancreatitis. The patient was brought to the emergency department with respiratory symptoms. She was on hospice at home and mental status was noted to be worsening. Because of her breathing difficulties, she was brought to the emergency department for evaluation. The patient is not verbally responsive. She has her eyes open, but does not follow any commands and basically stares up at the ceiling. Information is obtained from the medical record and notes. The patient was tachycardic when she came to the emergency department and respiratory rate was increased at 27. White blood cell count was increased to 26.7. She has acute on chronic kidney disease. Chest x-ray was performed and showed patchy bilateral lower lobe infiltrates. The patient reportedly fell at home. A CT scan of the head showed no acute intracranial abnormality. The temperature has been within normal range. Lactic acid level is elevated at 2.5. Blood cultures taken yesterday have no growth in 1 day. Urinalysis revealed 14 white cells. Urine culture is pending. Upon review of the past medical history and medical records, it shows that the patient has had leukocytosis for some time and she has also had some degree of renal disease. Her white count has fluctuated between 12.4 up to 32 over the past few months. She has no cough. Respirations appear somewhat labored currently. She is receiving 2 liters of nasal cannula oxygen and saturation is 93. PAST MEDICAL HISTORY: Anxiety, hypertension, gastroesophageal reflux disease, idiopathic pancreatitis, history of left knee total replacement, history of cholecystectomy. ALLERGIES: NO KNOWN DRUG ALLERGIES. MEDICATIONS: 1. Cefepime 2 grams IV every 12 hours. 2. Mattie-Colace. 3. Azithromycin. 4. Creon. 5. Lopressor. 6. Procardia-XL. 7. Protonix. 8. Mattie-Colace. 9. Protonix. 10. Carafate. 11. Actigall. SOCIAL HISTORY: The patient lives with a daughter. No tobacco, no alcohol, no illicit drugs. FAMILY HISTORY: Unable to obtain. REVIEW OF SYSTEMS: Unable to obtain. PHYSICAL EXAMINATION: GENERAL: This is a frail appearing, elderly female in no acute distress. She is not responsive, but has her eyes open VITAL SIGNS: Temperature 97 degrees, BP 116/70, respirations 24, heart rate 123. HEENT: Head is atraumatic. Extraocular movements grossly intact. Pupils reactive to light. No icterus. Oropharynx unable to visualize since the patient does not cooperate, and does not open her mouth to commands. External mucosa is moist. NECK: No adenopathy or sweating. LUNGS: Decreased breath sounds with very slight rhonchi at the left base. HEART: Regular S1 and S2 normal. No murmur heard. ABDOMEN: Decreased bowel sounds. Soft, no tenderness appreciated. EXTREMITIES: No clubbing, cyanosis or edema. SKIN: No rash. NEUROLOGIC: Unable to assess since the patient cannot cooperate. PSYCHIATRIC: Unable to assess. LABORATORY DATA: WBC 18.4, platelets 296, 90% neutrophils, hemoglobin 8.8. Creatinine 5.19, estimated GFR 10. LFTs normal. Sodium 141. IMPRESSION: 1. Leukocytosis, probably secondary to urinary tract infection versus pulmonary system. The patient potentially may have aspirated. 2. Altered mental status in patient with features on admission suggesting sepsis including tachycardia, elevated lactic acid, increased respiratory rate, along with altered mental status. 3. Abnormal chest x-ray probably due to aspiration pneumonia. 4. Acute kidney disease on top of chronic kidney disease. RECOMMENDATIONS: 1. Continue azithromycin. 2. Change cefepime to 2 grams every 24 hours. Because of her kidney function. 3. Monitor urine culture. 4. Monitor white blood cell count. 5. Follow up chest x-ray in a couple of days. 6. Monitor white blood cell count. 7. Repeat the chest x-ray tomorrow to check status of the pulmonary infiltrates. Thank you for this consultation. I will follow the patient's progress with you. MD DRE Hall/ignacio , 03:02 PM , 03:16 PM
--- NOTE | 2018-12-29 17:13 | P.CONNP ---
<NikhilShreya - Last Filed: 12/29/18 16:37> History of Present Illness Service: Nephrology Consult date: 12/29/18 Requesting Physician: Mary Sanders Reason for Consult: Acute on chronic kidney disease Primary Care Provider: Hong Peterson MD Chief Complaint: weird breathing History of Present Illness: Patient is a 82-year-old female with a past medical history significant for CKD stage III, chronic pancreatitis with GJ tube, hypertension and GERD. Patient presented to the ER with complaints of "weird breathing." Most recent hospitalization November 15, 2018 until November 22, 2018 for acute GI bleed, chronic pancreatitis acute on chronic renal failure. They state that she is slightly less responsive than her baseline. She was on hospice recently but family no longer wants Hospice and would like aggressive care. Nephrology is consulted for acute kidney injury with creatinine 5.19 which has decreased from 5.91 and metabolic acidosis HCO3 14.7. Patient is non verbal. Review of Systems unobtainable due to mental status PMFSH - History History Provided By: Family Member - Medical History Medical History: Medical History (Last Reviewed 12/29/18 @ 11:53 by Malissa Cardenas) Anxiety CKD (chronic kidney disease) stage 3, GFR 30-59 ml/min Encounter for gastrojejunal (GJ) tube placement GERD (gastroesophageal reflux disease) Hx of blood transfusion reaction Hypertension Idiopathic pancreatitis Pancreatitis - Surgical History Surgical History: Surgical History (Last Reviewed 12/29/18 @ 08:12 by Andi Higginbotham) History of total left knee replacement (TKR) Hx of cholecystectomy S/P ERCP - Family History Family History: Family History (Last Reviewed 12/28/18 @ 20:42 by Harmony Marrero MD) Other Has 1 child Has 1 living child - Tobacco History Second Hand Smoke Exposure: No Smoking Status: Never smoker - Alcohol History How Often Do You Have a Drink Containing Alcohol: Never - Substance Use History Substance History: No History of Abuse - Travel History Recent Travel in the [place] Within the Last 8 Weeks: No Recent Travel Out of the Country Within the Last 8 Weeks: No - Immunization History Tetanus Immunization: Unsure Hx Influenza Vaccine This Season: Unable to Assess Medications and Allergies Allergies Allergy/AdvReac Type Severity Reaction Status Date / Time No Known Allergies Allergy Verified 11/15/18 23:46 Home Medications Medication Instructions Recorded Confirmed Type [id number] [Creon] 1 tab PO TIDPC 05/16/18 12/28/18 History magnesium hydroxide [Presley Milk 311 mg PO QID PRN 05/16/18 12/28/18 History of Magnesia] metoprolol tartrate 25 mg PO BID 05/16/18 12/28/18 History pantoprazole 40 mg PO BID 05/16/18 12/28/18 History sucralfate 1 g PO TID 05/16/18 12/28/18 History morphine 15 mg PO BID PRN 11/18/18 12/28/18 History Active Medications: Active Medications Acetaminophen (Tylenol Liq) 650 mg G-TUBE Q4H PRN PRN Reason: Temp > 100.4 Hydrocodone Bitart/Acetaminophen (Hepzibah 5/325) 1 tab PO Q4H PRN PRN Reason: Pain 1-10 Al Hydroxide/Mg Hydroxide (Milk Of Magnesia Liq) 30 ml G-TUBE Q12H PRN PRN Reason: Mild Constipation Lipase/Protease/Amylase (Mando Kapoor ) 1 cap PO TIDPC [facility] Last Admin: 12/29/18 14:58 Dose: 1 cap Bisacodyl (Dulcolax Supp) 10 mg RECTAL DAILY PRN PRN Reason: SEVERE CONSITIPATION Calcium Carbonate (Tums Chew) 500 mg CHEW BID [facility] Duloxetine HCl (Cymbalta) 20 mg PO DAILY [facility] Last Admin: 12/29/18 13:22 Dose: Not Given Azithromycin 500 mg/ Sodium (Chloride) 250 mls @ 250 mls/hr IV.SIG Q24H [facility] Sodium Chloride (Ns Inj) 1,000 mls @ 125 mls/hr IV.CONT .Q8H [facility] Last Admin: 12/29/18 15:01 Dose: 125 mls/hr Cefepime HCl 2,000 mg/ Sodium (Chloride) 100 mls @ 200 mls/hr IV.SIG Q24H [facility] Lactulose (Lactulose Liq) 30 ml G-TUBE DAILY PRN PRN Reason: SEVERE CONSITIPATION Metoprolol Tartrate (Lopressor) 25 mg PO BID [facility] Nifedipine (Procardia Xl) 30 mg PO BID [facility] Ondansetron HCl (Zofran Inj) 4 mg IV.PUSH Q6H PRN PRN Reason: NAUSEA OR VOMITING Pantoprazole Sodium (Protonix) 40 mg PO BID [facility] Senna/Docusate Sodium (Mattie-Colace) 1 tab G-TUBE BID [facility] Last Admin: 12/29/18 09:17 Dose: 1 tab Sennosides (Senna Liq) 17.2 mg G-TUBE Q12H PRN PRN Reason: Moderate Constipation Sodium Chloride (Ns Flush) 2 ml IV.FLUSH PRN PRN PRN Reason: FLUSH AFTER USING IV ACCESS Sodium Chloride (Ns Flush) 2 ml IV.FLUSH BID [facility] Last Admin: 12/29/18 09:17 Dose: 2 ml Sterile Water (Free Water) 200 ml G-TUBE Q6HR [facility] Last Admin: 12/29/18 13:23 Dose: 200 ml Sucralfate (Carafate) 1 gm PO TID [facility] Last Admin: 12/29/18 14:58 Dose: 1 gm Ursodiol (Actigall) 300 mg PO BID [facility] Exam Vital signs: Vital Signs 12/28/18 18:21 12/28/18 18:33 12/28/18 19:05 Temperature Pulse Rate 120 H 108 H Respiratory Rate 27 H Blood Pressure 107/59 L Pulse Oximetry 95 95 97 12/28/18 20:00 12/28/18 21:10 12/28/18 22:24 Temperature Pulse Rate 110 H 105 H Respiratory Rate 22 20 Blood Pressure 110/65 117/54 L Pulse Oximetry 92 L 96 97 12/28/18 22:54 12/28/18 23:36 12/29/18 00:19 Temperature 98.3 F 98.3 F Pulse Rate 113 H 113 H 113 H Respiratory Rate 20 20 Blood Pressure 110/58 L 110/58 L Pulse Oximetry 92 L 92 L 12/29/18 04:00 12/29/18 08:00 12/29/18 11:40 Temperature 98.8 F 97 F L Pulse Rate 121 H 116 H Respiratory Rate 20 16 Blood Pressure 114/56 L 114/56 L Pulse Oximetry 99 95 93 L 12/29/18 12:00 Temperature 97 F L Pulse Rate 123 H Respiratory Rate 16 Blood Pressure 116/70 Pulse Oximetry 93 L Intake & Output 12/28/18 12/29/18 12/29/18 18:59 06:59 18:59 Intake Total 2600 / 2600 1300 / 1300 Balance 2600 / 2600 1300 / 1300 Weight 65.771 kg 58.2 kg Intake: IV 2600 / 2600 1100 / 1100 NS Inj 1,000 ML @ 125 mls/hr IV 1000 / 1000 .CONT .Q8H [facility] Rx#:[id number] Azithromycin Inj 500 MG In NS 250 / 250 Inj 250 ML @ 250 mls/hr IV.SIG ONCE ONE Rx#:[id number] Maxipime Inj 2,000 MG In NS Inj 100 / 100 100 / 100 100 ML @ 200 mls/hr IV.SIG Q12H [facility] Rx#:[id number] NS Inj 1,000 ML @ 1000 mls/hr 1000 / 1000 IV.SIG BOLUS [facility] Rx#:[id number] NS Inj 500 ML @ 1000 mls/hr IV. 1000 / 1000 SIG BOLUS [facility] Rx#:[id number] Vancomycin Inj 1,000 MG In NS 250 / 250 Inj 250 ML @ 250 mls/hr IV.SIG ONCE ONE Rx#:[id number] Free Water Amount 200 / 200 Other: # Incontinent Voids 2 Date of Last Bowel Movement 12/28/18 12/28/18 # Incontinent Bowel Movements 2 Weight On Admission 58.2 kg Narrative: GENERAL: Patient is non verbal. SKIN: Warm and dry. NECK: Supple, trachea midline. No JVD. CARDIOVASCULAR: Tachycardia. Regular rate and rhythm without murmurs, gallops, or rubs. RESPIRATORY: Breath sounds equal bilaterally. No accessory muscle use. GASTROINTESTINAL: Abdomen soft, non-tender, nondistended. Peg tube present. MUSCULOSKELETAL: No cyanosis, mild lower extremity edema. BACK: Nontender without obvious deformity. No CVA tenderness. Results - Lab Results 12/29/18 12:30 12/29/18 06:53 Most recent lab results Calcium 8.1 mg/dL (8.5-10.1) L D 12/29/18 06:53 Assessment and Plan - Assessment (1) Acute on chronic kidney failure Code(s): N17.9 - Acute kidney failure, unspecified; N18.9 - Chronic kidney disease, unspecified Status: Acute Plan: Acute kidney injury with creatinine 5.19 which has decreased from 5.91 and metabolic acidosis HCO3 14.7. Baseline creatinine in 2.2 to 2.5. WAYNE possible prerenal vs ATN from infection or decreased intake Avoid nephrotoxins including NSAIDs and IV contrast. Maintain accurate I+O. UA abnormal culture pending. Urine sodium, creatinine, and osmolarity ordered. HCO3 at 14, IVF change to 1/2NS with HCO3 at 125 ml/min Will monitor Urinary output and BMP Labs in AM (2) Anemia Code(s): D64.9 - Anemia, unspecified Status: Chronic Plan: HGB at 8.8, iron panel ordered. (3) Pneumonia Code(s): J18.9 - Pneumonia, unspecified organism Status: Acute Plan: On antibiotics BC pending <Samson Kennedy - Last Filed: 12/31/18 22:07> History of Present Illness Primary Care Provider: Hong Peterson MD [facility] - Medical History Medical History: Medical History (Last Reviewed 12/29/18 @ 11:53 by Malissa Cardenas) Anxiety CKD (chronic kidney disease) stage 3, GFR 30-59 ml/min Encounter for gastrojejunal (GJ) tube placement GERD (gastroesophageal reflux disease) Hx of blood transfusion reaction Hypertension Idiopathic pancreatitis Pancreatitis - Surgical History Surgical History: Surgical History (Last Reviewed 12/29/18 @ 08:12 by Andi Higginbotham) History of total left knee replacement (TKR) Hx of cholecystectomy S/P ERCP - Family History Family History: Family History (Last Reviewed 12/28/18 @ 20:42 by Harmony Marrero MD) Other Has 1 child Has 1 living child Medications and Allergies Active Medications: Active Medications Acetaminophen (Tylenol Liq) 650 mg G-TUBE Q4H PRN PRN Reason: Temp > 100.4 Hydrocodone Bitart/Acetaminophen (Hepzibah 5/325) 1 tab G-TUBE Q4H PRN PRN Reason: Pain 1-10 Last Admin: 12/31/18 13:42 Dose: 1 tab Al Hydroxide/Mg Hydroxide (Milk Of Magnesia Liq) 30 ml G-TUBE Q12H PRN PRN Reason: Mild Constipation Lipase/Protease/Amylase (Mando Kapoor ) 1 cap PO TIDPC [facility] Last Admin: 12/31/18 17:43 Dose: 1 cap Bisacodyl (Dulcolax Supp) 10 mg RECTAL DAILY PRN PRN Reason: SEVERE CONSITIPATION Calcium Carbonate (Tums Chew) 500 mg CHEW BID [facility] Last Admin: 12/29/18 22:39 Dose: 500 mg Duloxetine HCl (Cymbalta) 20 mg PO DAILY [facility] Last Admin: 12/31/18 08:12 Dose: 20 mg Azithromycin 500 mg/ Sodium (Chloride) 250 mls @ 250 mls/hr IV.SIG Q24H [facility] Last Admin: 12/31/18 18:00 Dose: 250 mls/hr Cefepime HCl 2,000 mg/ Sodium (Chloride) 100 mls @ 200 mls/hr IV.SIG Q24H [facility] Last Infusion: 12/31/18 15:42 Dose: Infused Sodium Bicarbonate 75 meq/ (Sodium Chloride) 1,000 mls @ 125 mls/hr IV.CONT .Q8H [facility] Last Admin: 12/31/18 17:41 Dose: 125 mls/hr Pantoprazole Sodium 80 mg/ (Sodium Chloride) 100 mls @ 10 mls/hr IV.CONT Q10H [facility] Last Admin: 12/31/18 18:31 Dose: Not Given Aztreonam 500 mg/ Sodium (Chloride) 100 mls @ 200 mls/hr IV.SIG Q8H [facility] Last Infusion: 12/31/18 18:05 Dose: Infused Lactulose (Lactulose Liq) 30 ml G-TUBE DAILY PRN PRN Reason: SEVERE CONSITIPATION Metoprolol Tartrate (Lopressor) 25 mg G-TUBE BID [facility] Last Admin: 12/31/18 08:12 Dose: 25 mg Nifedipine (Procardia Xl) 30 mg PO BID [facility] Last Admin: 12/29/18 22:39 Dose: 30 mg Ondansetron HCl (Zofran Inj) 4 mg IV.PUSH Q6H PRN PRN Reason: NAUSEA OR VOMITING Pantoprazole Sodium (Protonix) 40 mg PO BID [facility] Last Admin: 12/29/18 22:39 Dose: 40 mg Senna/Docusate Sodium (Mattie-Colace) 1 tab G-TUBE BID [facility] Last Admin: 12/31/18 08:12 Dose: 1 tab Sennosides (Senna Liq) 17.2 mg G-TUBE Q12H PRN PRN Reason: Moderate Constipation Sodium Chloride (Ns Flush) 2 ml IV.FLUSH PRN PRN PRN Reason: FLUSH AFTER USING IV ACCESS Sodium Chloride (Ns Flush) 2 ml IV.FLUSH BID [facility] Last Admin: 12/31/18 08:13 Dose: 2 ml Sterile Water (Free Water) 200 ml G-TUBE Q6HR [facility] Last Admin: 12/31/18 17:43 Dose: 200 ml Sucralfate (Carafate) 1 gm G-TUBE TID [facility] Last Admin: 12/31/18 17:43 Dose: 1 gm Ursodiol (Actigall) 300 mg G-TUBE BID [facility] Last Admin: 12/31/18 08:12 Dose: 300 mg Exam Vital signs: Vital Signs 12/30/18 22:15 12/30/18 22:22 12/31/18 00:00 Temperature 98.0 F 98.1 F Pulse Rate 108 H 118 H Respiratory Rate 20 20 20 Blood Pressure 134/71 118/65 Pulse Oximetry 97 97 12/31/18 04:00 12/31/18 08:00 12/31/18 12:00 Temperature 98.5 F 97.2 F L 97.8 F Pulse Rate 116 H 122 H 115 H Respiratory Rate 20 16 15 Blood Pressure 125/64 144/71 H 147/73 H Pulse Oximetry 97 97 98 12/31/18 16:00 12/31/18 20:00 Temperature 97.7 F 98.1 F Pulse Rate 117 H 115 H Respiratory Rate 15 17 Blood Pressure 157/68 H 148/69 H Pulse Oximetry 100 96 Intake & Output 12/31/18 12/31/18 01/01/19 06:59 18:59 06:59 Intake Total 3137 / 3137 2150 / 2150 Output Total 1450 / 1450 Balance 1687 / 1687 2150 / 2150 Weight 64.4 kg Intake: IV 1450 / 1450 1750 / 1750 Protonix Inj 80 MG In NS Inj 100 / 100 200 / 200 100 ML @ 10 mls/hr IV.CONT Q10H [facility] Rx#:[id number] Sodium Bicarbonate 8.4% Inj 75 1000 / 1000 1000 / 1000 MEQ In 1/2 Normal Saline Inj 925 ML @ 125 mls/hr IV.CONT . Q8H [facility] Rx#:[id number] Azithromycin Inj 500 MG In NS 250 / 250 Inj 250 ML @ 250 mls/hr IV.SIG Q24H [facility] Rx#:[id number] Azactam Inj 500 MG In NS Inj 100 / 100 200 / 200 100 ML @ 200 mls/hr IV.SIG Q8H [facility] Rx#:[id number] Maxipime Inj 2,000 MG In NS Inj 100 / 100 100 ML @ 200 mls/hr IV.SIG Q24H [facility] Rx#:[id number] NS Inj 250 ML @ 15 mls/hr IV. 250 / 250 SIG ONCE [facility] Rx#:[id number] Tube Feeding 627 / 627 Water Bolus Amount 400 / 400 Free Water Amount 260 / 260 400 / 400 Intake (Blood Product) Amt 400 / 400 Rbc As-3 Leukoreduced Unit 400 / 400 [id number] Output: Urine 1450 / 1450 Other: Date of Last Bowel Movement 12/30/18 # Bowel Movements 3 Results - Lab Results 12/31/18 09:07 12/31/18 09:07 Most recent lab results Calcium 8.2 mg/dL (8.5-10.1) L 12/31/18 09:07 Phosphorus 2.7 mg/dL (2.5-4.9) 12/31/18 09:07 Magnesium 2.0 mg/dL (1.5-2.5) 12/31/18 09:07 Assessment and Plan - Assessment (1) Acute on chronic kidney failure Code(s): N17.9 - Acute kidney failure, unspecified; N18.9 - Chronic kidney disease, unspecified Status: Acute Plan: Patient seen and examined, agree with above. Patient has chronic kidney disease and develop WAYNE. Has been on GT feeding, has metabolic acidosis. Continue IVF with NaHco3. (2) Anemia Code(s): D64.9 - Anemia, unspecified Status: Chronic (3) Pneumonia Code(s): J18.9 - Pneumonia, unspecified organism Status: Acute <Samson Kennedy - Last Filed: 12/31/18 22:07> (1) Acute on chronic kidney failure Qualifiers: (2) Anemia Qualifiers:
[2018-12-29 18:02] LABS: Creatinine,Urine Random 27 mg/dL (27-300); Sodium,Urine Random 76 meq/L
[2018-12-29] MEDS: Sodium Bicarbonate 8.4% Inj 75 MEQ in Sodium Chloride 0.45 % Inj 925 ML IV.CONT SCH (18:06)
--- NOTE | 2018-12-29 18:52 | US ---
EXAM DATE: 12/29/2018 6:47 PM EST AGE/SEX: 83 years / Female INDICATIONS: Elevated Lab values. CLINICAL DATA: This is the patient's subsequent encounter. Patient reports that signs and symptoms h ave been present for 1 month and indicates a pain score of 2/10. MEDICAL/SURGICAL HISTORY: Renal disease. Gastroesophageal reflux disease. Hypertension. Anxi ety. GJ tube placement. Idiopathic pancreatitis. Cholecystectomy. Total knee replacement, left. S/ P ERCP. COMPARISON: [facility] [place], [place] KIDNEY/RENAL/BLADDER, 11/16/2018. . MEASUREMENTS: Right Kidney:__8.2 x 6.0 x 3.3 cm Left Kidney:__6.4 x 3.4 x 3.6 cm FINDINGS: Right Kidney: Increased echogenicity. Redemonstration of anechoic cyst in the superior pole measuring 2.1 x 2.4 x 2.4 cm. Additional stable 1.6 x 0.6 x 1.1 cm predominantly hypoechoic cyst in the midpol e. Mild hydronephrosis. Left Kidney: Increased echogenicity. No hydronephrosis. Bladder: Within normal limits given the degree of distension. Other: None. CONCLUSION: 1. Small echogenic kidneys bilaterally consistent with medical renal disease. 2. Mild right-sided hydronephrosis of uncertain etiology. 3. Stable right-sided renal cysts. Electronically signed by: Bhavin Montemayor MD Board Certified Radiologist 12/29/2018 6:51 PM EST
[2018-12-29] MEDS: Azithromycin Inj 500 MG in Sodium Chlor 0.9% Inj 250 ML IV.SIG SCH (19:11)
[2018-12-29] MEDS ORDERED: Metoprolol Tartrate 25 MG Tablet PO SCH (21:00)
--- NOTE | 2018-12-29 22:12 | P.PN ---
Subjective Interval history: Called by nurse re: pt's family concern re: pt's lack of speech and some occasional tremor. I reviewed pt's admission and some prior hospital visits as well. I d/w'd Dr Eddy as well. Pt has multiple medical issues and was actually on hospice prior to daughter having her brought to hospital due to decreased responsiveness over last few days at home. Current admission notable for metabolic acidosis with WAYNE and apparent GNR sepsis. Physical Exam Vital signs: Vital Signs 12/28/18 22:24 12/28/18 22:54 12/28/18 23:36 Temperature 98.3 F 98.3 F Pulse Rate 105 H 113 H 113 H Respiratory Rate 20 20 20 Blood Pressure 117/54 L 110/58 L 110/58 L Pulse Oximetry 97 92 L 92 L 12/29/18 00:19 12/29/18 04:00 12/29/18 08:00 Temperature 98.8 F 97 F L Pulse Rate 113 H 121 H 116 H Respiratory Rate 20 16 Blood Pressure 114/56 L 114/56 L Pulse Oximetry 99 95 12/29/18 11:40 12/29/18 12:00 12/29/18 16:00 Temperature 97 F L 97.4 F L Pulse Rate 123 H 122 H Respiratory Rate 16 16 Blood Pressure 116/70 153/69 H Pulse Oximetry 93 L 93 L 98 12/29/18 20:00 Temperature 97.9 F Pulse Rate 123 H Respiratory Rate 20 Blood Pressure 127/73 Pulse Oximetry 99 Intake & Output 12/29/18 12/29/18 12/30/18 06:59 18:59 06:59 Intake Total 2600 / 2600 1500 / 1500 400 / 400 Output Total 675 / 675 300 / 300 Balance 2600 / 2600 825 / 825 100 / 100 Weight 58.2 kg Intake: IV 2600 / 2600 1100 / 1100 NS Inj 1,000 ML @ 125 mls/hr IV 1000 / 1000 .CONT .Q8H [facility] Rx#:[id number] Azithromycin Inj 500 MG In NS 250 / 250 Inj 250 ML @ 250 mls/hr IV.SIG ONCE ONE Rx#:[id number] Maxipime Inj 2,000 MG In NS Inj 100 / 100 100 / 100 100 ML @ 200 mls/hr IV.SIG Q12H [facility] Rx#:[id number] NS Inj 1,000 ML @ 1000 mls/hr 1000 / 1000 IV.SIG BOLUS [facility] Rx#:[id number] NS Inj 500 ML @ 1000 mls/hr IV. 1000 / 1000 SIG BOLUS [facility] Rx#:[id number] Vancomycin Inj 1,000 MG In NS 250 / 250 Inj 250 ML @ 250 mls/hr IV.SIG ONCE ONE Rx#:[id number] Tube Irrigant 100 / 100 Water Bolus Amount 300 / 300 Free Water Amount 400 / 400 Output: Urine 675 / 675 300 / 300 Other: # Incontinent Voids 2 3 Date of Last Bowel Movement 12/28/18 12/28/18 12/29/18 # Incontinent Bowel Movements 2 3 Weight On Admission 58.2 kg - Constitutional no acute distress, chronically ill appearing, somnolent Comments: arouses to voice and opens eyes, but doesn't follow commands and is nonverbal - Routine HEENT Exam Head: Present: normocephalic, atraumatic Eye: Present: EOMI - Routine Respiratory Exam Present: prolonged expiratory phase - Routine Cardiovascular Exam Present: tachycardia - Routine Skin Exam Present: intact, dry - Routine Neurological Exam Present: altered mental status - Detailed Neurological Exam: Coma Scale Eye Opening: To sound Verbal Response: None Results - Labs CBC & Chem 7: 12/29/18 12:30 12/29/18 06:53 Laboratory Results - last 24 hr 12/28/18 12/29/18 12/29/18 23:58 06:53 06:53 WBC 18.4 H RBC 2.48 L Hgb 7.1 L D Hct 21.9 L MCV 88.3 MCH 28.6 MCHC 32.4 RDW 17.1 Plt Count 296 MPV 8.6 Neut % (Auto) 90.1 H Lymph % (Auto) 3.2 L [place] % (Auto) 6.3 Eos % (Auto) 0.3 Baso % (Auto) 0.1 Neut # (Auto) 16.6 H Lymph # (Auto) 0.6 L [place] # (Auto) 1.1 H Eos # (Auto) 0.0 Baso # (Auto) 0.0 WBC Differential . Differential Comment Auto diff final Sodium 141 Potassium 4.0 Chloride 110 H D Carbon Dioxide 14.2 L Anion Gap 17 H BUN 244 H Creatinine 5.19 H Estimated GFR 10 L Random Glucose 85 Lactic Acid 2.5 H Calcium 8.1 L D Urine Color Urine Clarity Urine pH Ur Specific [place] Urine Protein Urine Glucose (UA) Urine Ketones Urine Occult Blood Urine Nitrate Urine Bilirubin Urine Urobilinogen Ur Leukocyte Esterase Urine RBC Urine WBC Ur Squamous Epith Cells Amorphous Sediment Urine Bacteria Micro UA Comment Ur Microscopic Review Urine Culture Comments Urine Osmolality Ur Random Creatinine Ur Random Sodium 12/29/18 12/29/18 12/29/18 12:30 13:00 17:35 WBC RBC Hgb 8.8 L Hct 28.1 L MCV MCH MCHC RDW Plt Count MPV Neut % (Auto) Lymph % (Auto) [place] % (Auto) Eos % (Auto) Baso % (Auto) Neut # (Auto) Lymph # (Auto) [place] # (Auto) Eos # (Auto) Baso # (Auto) WBC Differential Differential Comment Sodium Potassium Chloride Carbon Dioxide Anion Gap BUN Creatinine Estimated GFR Random Glucose Lactic Acid Calcium Urine Color Red Urine Clarity Cloudy H Urine pH 6.0 Ur Specific [place] 1.012 Urine Protein 30 H Urine Glucose (UA) Negative Urine Ketones Negative Urine Occult Blood Large H Urine Nitrate Negative Urine Bilirubin Negative Urine Urobilinogen Less than 2 Ur Leukocyte Esterase Small H Urine RBC 149 H Urine WBC 14 H Ur Squamous Epith Cells <1 Amorphous Sediment Rare H Urine Bacteria Many H Micro UA Comment Culture indicated Ur Microscopic Review Not Reportable Urine Culture Comments Culture indicated Urine Osmolality Ur Random Creatinine 27 Ur Random Sodium 76 12/29/18 17:35 WBC RBC Hgb Hct MCV MCH MCHC RDW Plt Count MPV Neut % (Auto) Lymph % (Auto) [place] % (Auto) Eos % (Auto) Baso % (Auto) Neut # (Auto) Lymph # (Auto) [place] # (Auto) Eos # (Auto) Baso # (Auto) WBC Differential Differential Comment Sodium Potassium Chloride Carbon Dioxide Anion Gap BUN Creatinine Estimated GFR Random Glucose Lactic Acid Calcium Urine Color Urine Clarity Urine pH Ur Specific [place] Urine Protein Urine Glucose (UA) Urine Ketones Urine Occult Blood Urine Nitrate Urine Bilirubin Urine Urobilinogen Ur Leukocyte Esterase Urine RBC Urine WBC Ur Squamous Epith Cells Amorphous Sediment Urine Bacteria Micro UA Comment Ur Microscopic Review Urine Culture Comments Urine Osmolality 442 Ur Random Creatinine Ur Random Sodium Microbiology 12/28/18 20:26 Blood - Peripheral Aerobic Blood Culture - Preliminary No growth in 1 day 12/28/18 20:26 Blood - Peripheral Anaerobic Blood Culture - Preliminary gram negative rods 12/28/18 20:18 Blood - Peripheral Aerobic Blood Culture - Preliminary No growth in 1 day 12/28/18 20:18 Blood - Peripheral Anaerobic Blood Culture - Preliminary No growth in 1 day 12/28/18 19:37 Nasal Wash Influenza Types A,B Antigen - Final Negative for FLU A and B antigen Infection due to influenza A or B cannot be ruled out since the antigen present in the sample may be below the detection limit of the test. - Imaging Impressions Abdomen/Bladder Ultrasound 12/29/18 00:00 CONCLUSION: 1. Small echogenic kidneys bilaterally consistent with medical renal disease. 2. Mild right-sided hydronephrosis of uncertain etiology. 3. Stable right-sided renal cysts. Assessment and Plan - Assessment (1) Sepsis Code(s): A41.9 - Sepsis, unspecified organism Status: Acute Plan: GNR sepsis likely source urine. Pt has significant comorbidities and prognosis is poor. I discussed this with pt's daughter in presence of pt. will continue IVF, abx (2) Acute on chronic kidney failure Code(s): N17.9 - Acute kidney failure, unspecified; N18.9 - Chronic kidney disease, unspecified Status: Acute Plan: GFR significantly reduced. Nephrology appreciated. Will follow renal indices. Bicarb in IVF (3) Encephalopathy Code(s): G93.40 - Encephalopathy, unspecified Status: Chronic Plan: Likely multifactorial due to metabolic disturbance as well as sepsis - Plan Discussed Condition With: Pt's daughter, Dr Eddy, pt's nurse (1) Sepsis Qualifiers: Sepsis type: sepsis due to unspecified organism Qualified Code(s): A41.9 - Sepsis, unspecified organism (2) Acute on chronic kidney failure Qualifiers:
[2018-12-30] MEDS: Sodium Bicarbonate 8.4% Inj 75 MEQ in Sodium Chloride 0.45 % Inj 925 ML IV.CONT SCH ×3 (00:01→22:15)
[2018-12-30 06:31] LABS: Baso # (Auto) 0.1 th/mm3 (0.0-0.2); Baso % (Auto) 0.4 % (0.0-2.0); Eos % (Auto) 0.2 % (0.0-4.0); Hematocrit 23.4 % (35.0-46.0); Hemoglobin 7.4 gm/dL (11.6-15.3); Lymph # (Auto) 0.8 th/mm3 (1.0-4.8); Lymph % (Auto) 3.5 % (9.0-44.0); Mean Corpuscular HGB Conc 31.8 % (32.0-36.0); Mean Corpuscular Hemoglobin 27.9 pg (27.0-34.0); Mean Corpuscular Volume 87.8 fL (80.0-100.0); Mean Platelet Volume 8.8 fL (7.0-11.0); Mono # (Auto) 1.3 th/mm3 (0.0-0.9); Mono % (Auto) 5.7 % (0.0-8.0); Neut # (Auto) 20.3 th/mm3 (1.8-7.7); Neut % (Auto) 90.2 % (16.0-70.0); Platelet Count 279 th/mm3 (150-450); Red Blood Count 2.66 mil/mm3 (4.00-5.30); Red Cell Distribution Width 17.3 % (11.6-17.2); White Blood Count 22.4 th/mm3 (4.0-11.0)
[2018-12-30 06:57] LABS: Albumin 1.9 g/dL (3.4-5.0); Anion Gap 13 meq/L (5-15); Calcium 8.4 mg/dL (8.5-10.1); Carbon Dioxide 16.9 meq/L (21.0-32.0); Chloride 111 meq/L (98-107); Glucose,Random 120 mg/dL (74-106); Iron 14 mcg/dL (50-170); Magnesium 2.4 mg/dL (1.5-2.5); Phosphorus 2.9 mg/dL (2.5-4.9); Potassium 3.6 meq/L (3.5-5.1); Sodium 141 meq/L (136-145)
[2018-12-30 06:58] LABS: % Iron Saturation 8.1 % (20-50); Blood Urea Nitrogen 228 mg/dL (7-18); Total Iron Binding Capacity 174 mcg/dL (250-450)
[2018-12-30 07:01] LABS: Ferritin 1242 ng/mL (8-252)
[2018-12-30 08:05] LABS: Lymphocytes 3 % (9-44); Monocytes 3 % (0-8); Tallied Nucleated RBC 1 (0-0)
[2018-12-30 08:06] LABS: Platelet Estimate Normal (Normal); Platelet Morphology Normal (Normal)
--- NOTE | 2018-12-30 08:16 | P.PNIM ---
Subjective Interval history: Patient remains non verbal Physical Exam Vital signs: Last Vital Signs Temp 97.7 F 12/30/18 04:00 Pulse 121 H 12/30/18 04:00 Resp 20 12/30/18 04:00 BP 133/62 12/30/18 04:00 Pulse Ox 96 12/30/18 04:00 Results Labs CBC & Chem 7: 01/01/19 07:51 01/01/19 07:51 Assessment and Plan Assessment (1) Sepsis: Code(s): A41.9 - Sepsis, unspecified organism Status: Acute (2) Acute on chronic kidney failure: Code(s): N17.9 - Acute kidney failure, unspecified; N18.9 - Chronic kidney disease, unspecified Status: Acute (3) Encephalopathy: Code(s): G93.40 - Encephalopathy, unspecified Status: Chronic Plan Ms. Larsen is an 82 y/o AAF with recurrent idiopathic pancreatitis, GERD, hypertension and GI bleed. She has been hospitalized numerous times for issues with pain control related to recurrent pancreatitis. Most recent hospitalization November 15, 2018 until November 22, 2018 for acute GI bleed, chronic pancreatitis and acute on chronic renal failure. Patient presents with complaints of "weird breathing." Family states that her breathing has been different and appearing more labored since last night or this morning. They state that she is slightly less responsive than her baseline. No fevers that they are aware of. No new pain that they are aware of. She did almost fall yesterday and they do not believe she hit her head but they were not there with her at the time and are not sure. She was on hospice recently but family no longer wants Hospice and would like aggressive care. Sepsis possible source pna vs UTI - Shortness of breath - Chest X-Ray 12/28/18 Patchy bilateral lower lobe infiltrates. - On admission white blood cell count 26.7 -> 18.4 (12/29) -> 22.4 (12/30) - On admission lactic acid 2.5 - ID consulted, appreciate input - azithromycin (12/28 - present) - cefepime (12/28 - present) - NPO with Speech consulted for swallow eval, speech therapy recommending NPO aspiration risks - Suplena via feeding tube with free water flush - UA reviewed urine culture pending - blood cultures growing gram neg rods 1/4 bottles WAYNE on CKD - on BUN 287, creatinine 5.91, GFR -> 8 - (12/29) BUN 244, creatitnine 5.19, GFR 10 - (12/30) BUN 228, craetintine 4.70 - IVFs - consult to nephrology, changed IVF to 1/2 NS with bicarb - avoid nephrotoxic agent - recheck BMP in AM Head CT 12/28/18 18:52 CONCLUSION: 1. No acute intracranial abnormality. 2. Bifrontal atrophy. Chronic idiopathic pancreatitis -Continue Cost 1 tablet p.o. every 4 hours as needed for pain -hold home morphine 15 mg p.o. twice daily due to lethargy -Continue home tube feeding Suplena with goal rate 40mls/hr, with free water flush HTN (hypertension) - continue home procardia XL 30mg BID and metoprolol 25 mg p.o. twice daily with hold parameters GERD (gastroesophageal reflux disease) - PPI Anemia - hgb on admission 9.2 -> 7.1 recheck 8.8 (12/29) -> 7.4 (12/30) - check occult stool - iron 14, TIBC 174, % saturation 8.1, ferritin 1242 - received call from nurse that patient had large black stool - start Protonix drip, PRBC, consult GI DVT prophylaxis with SCDs Palliative care consult Attending Attestation The exam, history, and the medical decision-making described in the above note were completed with the assistance of the mid-level provider. I reviewed and agree with the findings presented. I attest that I had a [id number] encounter with the patient on the same day, and personally performed and documented my assessment and findings in the medical record. Patient examined. Assessment and plan formulated with Olga Weiss PA-C. I agree with the above. Progress Note: Quality VTE Deep Vein Thrombosis/Pulmonary Embolism Present on Admission: No _ (1) Sepsis Qualifiers: Sepsis type: sepsis due to unspecified organism Qualified Code(s): A41.9 - Sepsis, unspecified organism (2) Acute on chronic kidney failure Qualifiers: Acute renal failure type: Chronic kidney disease stage: Qualified Code(s) : N18.9 - Chronic kidney disease, unspecified
[2018-12-30] MEDS ORDERED: Sucralfate 1 GM Tablet G-TUBE SCH (08:27)
[2018-12-30] MEDS: Metoprolol Tartrate 25 MG Tablet G-TUBE SCH ×2 (08:52→20:29)
[2018-12-30] MEDS: Senna/Docusate Sodium 8.6/50 MG Tablet G-TUBE SCH ×2 (08:53→20:30)
[2018-12-30] MEDS: Lipase/Protease/Amylase 12/38/60 DR Capsule PO SCH ×3 (08:53→18:27)
--- NOTE | 2018-12-30 09:13 | XR ---
EXAM DATE: 12/30/2018 9:11 AM EST AGE/SEX: 83 years / Female INDICATIONS: Evaluate for pneumonia. CLINICAL DATA: This is the patient's subsequent encounter. Patient reports that signs and symptoms h ave been present for 4 - 6 days and indicates a pain score of 0/10. MEDICAL/SURGICAL HISTORY: . Renal failure, chronic. Hypertension. . G Tube. COMPARISON: C, CHEST 1V SINGLE AP, 12/28/2018. . FINDINGS: Today's examination is compared to the prior study. There continues to be multiple bilateral scattere d patchy pulmonary infiltrates throughout both lung cruz. The overall pattern is stable compared to the prior examination. No definite pleural effusions. The heart size is stable. There is no evidence of pneumothorax. The bony structures are stable. CONCLUSION: Stable examination compared to the prior study with no significant change in the multiple bilateral s cattered pulmonary infiltrates. Electronically signed by: Vinicio Diggs MD Board Certified Radiologist 12/30/2018 9:12 AM EST
[2018-12-30] MEDS: Sucralfate 1 GM Tablet G-TUBE SCH ×3 (09:14→18:27)
[2018-12-30] MEDS ORDERED: Sodium Chlor 0.9% Inj 250 ML IV.SIG SCH (12:00)
--- NOTE | 2018-12-30 12:05 | P.PNNP ---
Subjective Interval history: Patient remains non verbal, does not follow commands. Creatinine has improved at 4.7 today, non oliguric. <Beryl Tejedane - Last Filed: 12/30/18 11:54> Physical Exam Vital signs: Vital Signs 12/29/18 12:00 12/29/18 16:00 12/29/18 20:00 Temperature 97 F L 97.4 F L 97.9 F Pulse Rate 123 H 122 H 123 H Respiratory Rate 16 16 20 Blood Pressure 116/70 153/69 H 127/73 Pulse Oximetry 93 L 98 99 12/30/18 00:00 12/30/18 04:00 12/30/18 09:30 Temperature 98.1 F 97.7 F Pulse Rate 110 H 121 H Respiratory Rate 20 20 Blood Pressure 122/60 133/62 Pulse Oximetry 97 96 95 12/30/18 09:35 Temperature 97 F L Pulse Rate 124 H Respiratory Rate 15 Blood Pressure 133/61 Pulse Oximetry 100 Intake & Output 12/29/18 12/30/18 12/30/18 18:59 06:59 18:59 Intake Total 1500 / 1500 3050 / 3050 200 / 200 Output Total 675 / 675 700 / 700 Balance 825 / 825 2350 / 2350 200 / 200 Weight 58.2 kg Intake: IV 1100 / 1100 2250 / 2250 200 / 200 NS Inj 1,000 ML @ 125 mls/hr IV 1000 / 1000 1000 / 1000 .CONT .Q8H HITESH Rx#:[id number] Sodium Bicarbonate 8.4% Inj 75 1000 / 1000 200 / 200 MEQ In 1/2 Normal Saline Inj 925 ML @ 125 mls/hr IV.CONT . Q8H HITESH Rx#:[id number] Azithromycin Inj 500 MG In NS 250 / 250 Inj 250 ML @ 250 mls/hr IV.SIG Q24H HITESH Rx#:[id number] Maxipime Inj 2,000 MG In NS Inj 100 / 100 100 ML @ 200 mls/hr IV.SIG Q12H HITESH Rx#:[id number] Tube Irrigant 100 / 100 Water Bolus Amount 300 / 300 Free Water Amount 400 / 400 400 / 400 Output: Urine 675 / 675 700 / 700 Other: # Incontinent Voids 3 Date of Last Bowel Movement 12/28/18 12/29/18 12/30/18 # Bowel Movements 1 # Incontinent Bowel Movements 3 Narrative: GENERAL: Patient is non verbal. SKIN: Warm and dry. NECK: Supple, trachea midline. No JVD. CARDIOVASCULAR: Tachycardia. Regular rate and rhythm without murmurs, gallops, or rubs. RESPIRATORY: Breath sounds equal bilaterally. No accessory muscle use. GASTROINTESTINAL: Abdomen soft, non-tender, nondistended. Peg tube present. MUSCULOSKELETAL: No cyanosis, mild lower extremity edema. BACK: Nontender without obvious deformity. No CVA tenderness. <Shreya Tejeda - Last Filed: 12/30/18 11:54> Vital signs: Vital Signs 12/30/18 00:00 12/30/18 04:00 12/30/18 09:30 Temperature 98.1 F 97.7 F Pulse Rate 110 H 121 H Respiratory Rate 20 20 Blood Pressure 122/60 133/62 Pulse Oximetry 97 96 95 12/30/18 09:35 12/30/18 12:00 12/30/18 14:24 Temperature 97 F L 97.2 F L 98.8 F Pulse Rate 124 H 125 H 116 H Respiratory Rate 15 15 20 Blood Pressure 133/61 130/68 114/65 Pulse Oximetry 100 99 12/30/18 14:48 12/30/18 16:00 12/30/18 18:47 Temperature 98 F 97.8 F 98.7 F Pulse Rate 122 H 115 H 113 H Respiratory Rate 22 15 20 Blood Pressure 123/63 136/57 L 123/74 Pulse Oximetry 97 98 97 12/30/18 18:57 12/30/18 20:00 12/30/18 22:15 Temperature 98.7 F 98.0 F Pulse Rate 116 H 113 H Respiratory Rate 20 20 20 Blood Pressure 122/60 120/68 Pulse Oximetry 97 100 12/30/18 22:22 Temperature 98.0 F Pulse Rate 108 H Respiratory Rate 20 Blood Pressure 134/71 Pulse Oximetry 97 Intake & Output 12/30/18 12/30/18 12/31/18 06:59 18:59 06:59 Intake Total 3150 / 3150 1500 / 1500 750 / 750 Output Total 700 / 700 600 / 600 750 / 750 Balance 2450 / 2450 900 / 900 0 / 0 Weight 58.2 kg Intake: IV 2350 / 2350 1100 / 1100 350 / 350 Protonix Inj 80 MG In NS Inj 100 / 100 100 ML @ 10 mls/hr IV.CONT Q10H HITESH Rx#:[id number] NS Inj 1,000 ML @ 125 mls/hr IV 1000 / 1000 .CONT .Q8H HITESH Rx#:[id number] Sodium Bicarbonate 8.4% Inj 75 1000 / 1000 1000 / 1000 MEQ In 1/2 Normal Saline Inj 925 ML @ 125 mls/hr IV.CONT . Q8H HITESH Rx#:[id number] Azithromycin Inj 500 MG In NS 250 / 250 250 / 250 Inj 250 ML @ 250 mls/hr IV.SIG Q24H HITESH Rx#:[id number] Azactam Inj 500 MG In NS Inj 100 / 100 100 ML @ 200 mls/hr IV.SIG Q8H HITESH Rx#:[id number] Maxipime Inj 2,000 MG In NS Inj 100 / 100 100 ML @ 200 mls/hr IV.SIG Q24H HITESH Rx#:[id number] Tube Irrigant 100 / 100 Water Bolus Amount 300 / 300 Free Water Amount 400 / 400 400 / 400 Intake (Blood Product) Amt 0 / 0 400 / 400 Rbc As-3 Leukoreduced Unit 0 / 0 400 / 400 [id number] Rbc As-3 Leukoreduced Unit 0 / 0 [id number] Output: Urine 700 / 700 600 / 600 750 / 750 Other: # Incontinent Voids 3 Date of Last Bowel Movement 12/29/18 12/30/18 12/30/18 # Bowel Movements 1 0 3 # Incontinent Bowel Movements 3 <Tamiko Kennedy Q - Last Filed: 12/30/18 23:13> Assessment and Plan - Assessment (1) Acute on chronic kidney failure Code(s): N17.9 - Acute kidney failure, unspecified; N18.9 - Chronic kidney disease, unspecified Status: Acute Plan: Acute kidney injury with creatinine 5.19 which has decreased from 5.91 and metabolic acidosis HCO3 14.7. Baseline creatinine in 2.2 to 2.5. WAYNE possible prerenal vs ATN from infection or decreased intake FeNA at 10 % suggestive of ATN Renal US . Small echogenic kidneys bilaterally consistent with medical renal disease, Mild right-sided hydronephrosis of uncertain etiology, and stable right -sided renal cysts. Avoid nephrotoxins including NSAIDs and IV contrast. Maintain accurate I+O. UA abnormal culture pending. HCO3 at improved at 16.9 continue 1/2NS with HCO3 at 125 ml/min Creatinine improved at 4.7 from 5.19, fluid an electrolytes stable. Will monitor Urinary output and BMP Labs in AM (2) Anemia Code(s): D64.9 - Anemia, unspecified Status: Chronic Plan: HGB at 7.4, iron sat low but ferritin elevated. Will give 1 dose of procrit. (3) Pneumonia Code(s): J18.9 - Pneumonia, unspecified organism Status: Acute Plan: On antibiotics BC pending <Shreya Tejeda - Last Filed: 12/30/18 11:54> - Assessment (1) Acute on chronic kidney failure Code(s): N17.9 - Acute kidney failure, unspecified; N18.9 - Chronic kidney disease, unspecified Status: Acute Qualifiers: Plan: Patient seen and examined, agree with above. Creatinine is slightly better. Continue IVF with NaHco3. (2) Anemia Code(s): D64.9 - Anemia, unspecified Status: Chronic Qualifiers: (3) Pneumonia Code(s): J18.9 - Pneumonia, unspecified organism Status: Acute <Samson Kennedy - Last Filed: 12/30/18 23:13>
--- NOTE | 2018-12-30 12:21 | P.CONGI ---
History of Present Illness Consult date: 12/30/18 Consult reason: GI bleed Melena stools Chief complaint: Pneumonia, Sepsis, WAYNE History of Present Illness: Patient is an 82-year-old female with past medical history significant for chronic kidney disease, gastroesophageal related reflux disease, hypertension and idiopathic pancreatitis. Surgical history significant for left total knee replacement, ERCP, cholecystectomy and gastrojejunal tube placement. Patient currently nonverbal and unable to contribute to history of present illness. Chart review utilized. Patient presented to [facility] emergency room where family reported patient is having difficulty breathing with increased labor. Patient's family reported she has been less responsive. It is not known if patient has had fever or chills or any acute pain. Family reported that patient fell yesterday and it was unwitnessed. Family reports patient was on hospice prior to arrival but now patient requesting aggressive care. Upon consultation, patient's nurse reports patient had moderate amount of solid stool with melena characteristics. Hemoglobin 7.4 hematocrit 23.4. There has been no reported hematemesis. Last EGD noted to be on 11/17/2018 revealed normal esophagus, medium size hiatal hernia , gastroenterostomy, medium-sized ulcer found at the pylorus with normal duodenal mucosa. Pathology revealed:GASTRIC ANTRUM, BIOPSY: ACUTELY ULCERATED ANTRAL MUCOSA WITH MARKED REACTIVE GASTROPATHY, MAY BE SEEN WITH BILE REFLUX OR DRUG THERAPY. A RONALD STAIN IS NEGATIVE FOR HELICOBACTER. Home medication list shows patient has been on pantoprazole 40 mg p.o. twice daily and Carafate 1 g p.o. 3 times daily. Chest x-ray on 12/28/2018 revealed bilateral lower lobe infiltrates for which patient is currently being treated with azithromycin and cefepime. Infectious disease is following. Speech therapy evaluation recommends n.p.o. status due to increased aspiration risk. Our service has been consulted to evaluate patient for GI bleeding with melena stools. Review of Systems unobtainable due to mental condition, other PMFSH - History History Provided By: Family Member - Medical History Medical History: Medical History (Last Updated 12/30/18 @ 13:40 by Renetta Amin APRN) Chronic anemia Hypertension Anxiety CKD (chronic kidney disease) stage 3, GFR 30-59 ml/min Encounter for gastrojejunal (GJ) tube placement GERD (gastroesophageal reflux disease) Hx of blood transfusion reaction Hypertension Idiopathic pancreatitis Pancreatitis - Surgical History Surgical History: Surgical History (Last Reviewed 12/29/18 @ 08:12 by Andi Higginbotham) History of total left knee replacement (TKR) Hx of cholecystectomy S/P ERCP - Family History Family History: Family History (Last Reviewed 12/28/18 @ 20:42 by Harmony Marrero MD) Other Has 1 child Has 1 living child - Tobacco History Second Hand Smoke Exposure: No Smoking Status: Never smoker - Alcohol History How Often Do You Have a Drink Containing Alcohol: Never - Substance Use History Substance History: No History of Abuse - Travel History Recent Travel in the [place] Within the Last 8 Weeks: No Recent Travel Out of the Country Within the Last 8 Weeks: No - Immunization History Tetanus Immunization: Unsure Hx Influenza Vaccine This Season: Unable to Assess Medications and Allergies Active Medications: Active Medications Acetaminophen (Tylenol Liq) 650 mg G-TUBE Q4H PRN PRN Reason: Temp > 100.4 Hydrocodone Bitart/Acetaminophen (Hamill 5/325) 1 tab G-TUBE Q4H PRN PRN Reason: Pain 1-10 Al Hydroxide/Mg Hydroxide (Milk Of Magnesia Liq) 30 ml G-TUBE Q12H PRN PRN Reason: Mild Constipation Lipase/Protease/Amylase (Mando Kapoor ) 1 cap PO TIDPC [facility] Last Admin: 12/30/18 08:53 Dose: 1 cap Bisacodyl (Dulcolax Supp) 10 mg RECTAL DAILY PRN PRN Reason: SEVERE CONSITIPATION Calcium Carbonate (Tums Chew) 500 mg CHEW BID [facility] Last Admin: 12/29/18 22:39 Dose: 500 mg Duloxetine HCl (Cymbalta) 20 mg PO DAILY [facility] Last Admin: 12/30/18 08:52 Dose: 20 mg Azithromycin 500 mg/ Sodium (Chloride) 250 mls @ 250 mls/hr IV.SIG Q24H [facility] Last Infusion: 12/29/18 23:37 Dose: Infused Cefepime HCl 2,000 mg/ Sodium (Chloride) 100 mls @ 200 mls/hr IV.SIG Q24H [facility] Last Admin: 12/30/18 06:04 Dose: 200 mls/hr Sodium Bicarbonate 75 meq/ (Sodium Chloride) 1,000 mls @ 125 mls/hr IV.CONT .Q8H [facility] Last Infusion: 12/30/18 08:54 Dose: 125 mls/hr Sodium Chloride (Ns Inj) 250 mls @ 15 mls/hr IV.SIG ONCE [facility] Stop: 12/31/18 04:39 Pantoprazole Sodium 80 mg/ (Sodium Chloride) 100 mls @ 10 mls/hr IV.CONT Q10H [facility] Lactulose (Lactulose Liq) 30 ml G-TUBE DAILY PRN PRN Reason: SEVERE CONSITIPATION Metoprolol Tartrate (Lopressor) 25 mg G-TUBE BID [facility] Last Admin: 12/30/18 08:52 Dose: 25 mg Nifedipine (Procardia Xl) 30 mg PO BID [facility] Last Admin: 12/29/18 22:39 Dose: 30 mg Ondansetron HCl (Zofran Inj) 4 mg IV.PUSH Q6H PRN PRN Reason: NAUSEA OR VOMITING Pantoprazole Sodium (Protonix) 40 mg PO BID [facility] Last Admin: 12/29/18 22:39 Dose: 40 mg Senna/Docusate Sodium (Mattie-Colace) 1 tab G-TUBE BID [facility] Last Admin: 12/30/18 08:53 Dose: 1 tab Sennosides (Senna Liq) 17.2 mg G-TUBE Q12H PRN PRN Reason: Moderate Constipation Sodium Chloride (Ns Flush) 2 ml IV.FLUSH PRN PRN PRN Reason: FLUSH AFTER USING IV ACCESS Sodium Chloride (Ns Flush) 2 ml IV.FLUSH BID [facility] Last Admin: 12/30/18 08:53 Dose: 2 ml Sterile Water (Free Water) 200 ml G-TUBE Q6HR [facility] Last Admin: 12/30/18 06:05 Dose: 200 ml Sucralfate (Carafate) 1 gm G-TUBE TID [facility] Last Admin: 12/30/18 09:14 Dose: Not Given Ursodiol (Actigall) 300 mg G-TUBE BID [facility] Last Admin: 12/30/18 09:14 Dose: Not Given Allergies Allergy/AdvReac Type Severity Reaction Status Date / Time No Known Allergies Allergy Verified 11/15/18 23:46 Home Medications Medication Instructions Recorded Confirmed Type [id number] [Creon] 1 tab PO TIDPC 05/16/18 12/28/18 History magnesium hydroxide [Presley Milk 311 mg PO QID PRN 05/16/18 12/28/18 History of Magnesia] metoprolol tartrate 25 mg PO BID 05/16/18 12/28/18 History pantoprazole 40 mg PO BID 05/16/18 12/28/18 History sucralfate 1 g PO TID 05/16/18 12/28/18 History morphine 15 mg PO BID PRN 11/18/18 12/28/18 History Exam Vital signs: Vital Signs 12/29/18 16:00 12/29/18 20:00 12/30/18 00:00 Temperature 97.4 F L 97.9 F 98.1 F Pulse Rate 122 H 123 H 110 H Respiratory Rate 16 20 20 Blood Pressure 153/69 H 127/73 122/60 Pulse Oximetry 98 99 97 12/30/18 04:00 12/30/18 09:30 12/30/18 09:35 Temperature 97.7 F 97 F L Pulse Rate 121 H 124 H Respiratory Rate 20 15 Blood Pressure 133/62 133/61 Pulse Oximetry 96 95 100 Intake & Output 12/29/18 12/30/18 12/30/18 18:59 06:59 18:59 Intake Total 1500 / 1500 3050 / 3050 200 / 200 Output Total 675 / 675 700 / 700 Balance 825 / 825 2350 / 2350 200 / 200 Weight 58.2 kg Intake: IV 1100 / 1100 2250 / 2250 200 / 200 NS Inj 1,000 ML @ 125 mls/hr IV 1000 / 1000 1000 / 1000 .CONT .Q8H [facility] Rx#:[id number] Sodium Bicarbonate 8.4% Inj 75 1000 / 1000 200 / 200 MEQ In 1/2 Normal Saline Inj 925 ML @ 125 mls/hr IV.CONT . Q8H [facility] Rx#:[id number] Azithromycin Inj 500 MG In NS 250 / 250 Inj 250 ML @ 250 mls/hr IV.SIG Q24H [facility] Rx#:[id number] Maxipime Inj 2,000 MG In NS Inj 100 / 100 100 ML @ 200 mls/hr IV.SIG Q12H [facility] Rx#:[id number] Tube Irrigant 100 / 100 Water Bolus Amount 300 / 300 Free Water Amount 400 / 400 400 / 400 Output: Urine 675 / 675 700 / 700 Other: # Incontinent Voids 3 Date of Last Bowel Movement 12/28/18 12/29/18 12/30/18 # Bowel Movements 1 # Incontinent Bowel Movements 3 - Constitutional no acute distress, chronically ill appearing - Routine HEENT Exam Head: Present: normocephalic, atraumatic ENT: Present: mucous membranes dry - Routine Neck Exam Present: supple, trachea midline - Routine Respiratory Exam Present: crackles. Absent: accessory muscle use, respiratory distress Comments: Bilateral lung bases - Routine Cardiovascular Exam Present: RRR, tachycardia Comments: 124 - Routine Abdominal Exam Present: soft, normoactive bowel sounds, ostomy. Absent: tenderness, distended , guarding, firm - Routine Extremities Exam Absent: edema - Routine Skin Exam Present: dry, warm - Routine Neurological Exam Awake Unable to follow direction Nonverbal Results - Labs CBC & Chem 7: 12/30/18 13:17 12/30/18 05:52 Labs: Laboratory Results - last 24 hr 12/29/18 12/29/18 12/29/18 12:30 13:00 17:35 WBC RBC Hgb 8.8 L Hct 28.1 L MCV MCH MCHC RDW Plt Count MPV Prelim Diff (Auto) Neut % (Auto) Lymph % (Auto) [place] % (Auto) Eos % (Auto) Baso % (Auto) Neut # (Auto) Lymph # (Auto) [place] # (Auto) Eos # (Auto) Baso # (Auto) WBC Differential Seg Neuts % (Manual) Band Neuts % (Manual) Lymphocytes % (Manual) Monocytes % (Manual) Abs Neuts (Manual) Nucleated RBCs/100 WBC Differential Comment Platelet Estimate Platelet Morphology Sodium Potassium Chloride Carbon Dioxide Anion Gap BUN Creatinine Random Glucose Calcium Phosphorus Magnesium Iron TIBC % Saturation Ferritin Albumin Urine Color Red Urine Clarity Cloudy H Urine pH 6.0 Ur Specific [place] 1.012 Urine Protein 30 H Urine Glucose (UA) Negative Urine Ketones Negative Urine Occult Blood Large H Urine Nitrate Negative Urine Bilirubin Negative Urine Urobilinogen Less than 2 Ur Leukocyte Esterase Small H Urine RBC 149 H Urine WBC 14 H Ur Squamous Epith Cells <1 Amorphous Sediment Rare H Urine Bacteria Many H Micro UA Comment Culture indicated Ur Microscopic Review Not Reportable Urine Culture Comments Culture indicated Urine Osmolality Ur Random Creatinine 27 Ur Random Sodium 76 12/29/18 12/30/18 12/30/18 17:35 05:52 05:52 WBC 22.4 H RBC 2.66 L Hgb 7.4 L Hct 23.4 L MCV 87.8 MCH 27.9 MCHC 31.8 L RDW 17.3 H Plt Count 279 MPV 8.8 Prelim Diff (Auto) Slide review pending Neut % (Auto) 90.2 H Lymph % (Auto) 3.5 L [place] % (Auto) 5.7 Eos % (Auto) 0.2 Baso % (Auto) 0.4 Neut # (Auto) 20.3 H Lymph # (Auto) 0.8 L [place] # (Auto) 1.3 H Eos # (Auto) 0.0 Baso # (Auto) 0.1 WBC Differential Manual diff final Seg Neuts % (Manual) 82 H Band Neuts % (Manual) 12 H Lymphocytes % (Manual) 3 L Monocytes % (Manual) 3 Abs Neuts (Manual) 21.1 H Nucleated RBCs/100 WBC 1 H Differential Comment . Platelet Estimate Normal Platelet Morphology Normal Sodium 141 Potassium 3.6 Chloride 111 H Carbon Dioxide 16.9 L Anion Gap 13 BUN 228 H Creatinine 4.70 H Random Glucose 120 H Calcium 8.4 L Phosphorus 2.9 Magnesium 2.4 Iron 14 L TIBC 174 L % Saturation 8.1 L Ferritin 1242 H Albumin 1.9 L Urine Color Urine Clarity Urine pH Ur Specific [place] Urine Protein Urine Glucose (UA) Urine Ketones Urine Occult Blood Urine Nitrate Urine Bilirubin Urine Urobilinogen Ur Leukocyte Esterase Urine RBC Urine WBC Ur Squamous Epith Cells Amorphous Sediment Urine Bacteria Micro UA Comment Ur Microscopic Review Urine Culture Comments Urine Osmolality 442 Ur Random Creatinine Ur Random Sodium - Imaging Impressions Abdomen/Bladder Ultrasound 12/29/18 00:00 CONCLUSION: 1. Small echogenic kidneys bilaterally consistent with medical renal disease. 2. Mild right-sided hydronephrosis of uncertain etiology. 3. Stable right-sided renal cysts. Chest X-Ray 12/30/18 08:00 CONCLUSION: Stable examination compared to the prior study with no significant change in the multiple bilateral scattered pulmonary infiltrates. Assessment and Plan - Plan Patient is an 82-year-old female with past medical history significant for chronic kidney disease, gastroesophageal related reflux disease, hypertension and idiopathic pancreatitis. Surgical history significant for left total knee replacement, ERCP, cholecystectomy and gastrojejunal tube placement. Patient currently nonverbal and unable to contribute to history of present illness. Chart review utilized. Patient presented to [facility] emergency room where family reported patient is having difficulty breathing with increased labor. Patient's family reported she has been less responsive. It is not known if patient has had fever or chills or any acute pain. Family reported that patient fell yesterday and it was unwitnessed. Family reports patient was on hospice prior to arrival but now patient requesting aggressive care. Upon consultation, patient's nurse reports patient had moderate amount of solid stool with melena characteristics. Hemoglobin 7.4 hematocrit 23.4. There has been no reported hematemesis. Last EGD noted to be on 11/17/2018 revealed normal esophagus, medium size hiatal hernia , gastroenterostomy, medium-sized ulcer found at the pylorus with normal duodenal mucosa. Pathology revealed:GASTRIC ANTRUM, BIOPSY: ACUTELY ULCERATED ANTRAL MUCOSA WITH MARKED REACTIVE GASTROPATHY, MAY BE SEEN WITH BILE REFLUX OR DRUG THERAPY. A RONALD STAIN IS NEGATIVE FOR HELICOBACTER. Home medication list shows patient has been on pantoprazole 40 mg p.o. twice daily and Carafate 1 g p.o. 3 times daily. Chest x-ray on 12/28/2018 revealed bilateral lower lobe infiltrates for which patient is currently being treated with azithromycin and cefepime. Infectious disease is following. Speech therapy evaluation recommends n.p.o. status due to increased aspiration risk. Our service has been consulted to evaluate patient for GI bleeding with melena stools. GI bleed with melena stools-patient admitted to [facility] with family report of increased labored breathing and decreased responsiveness. Hemoglobin 7.4 hematocrit 23.4 on arrival. Last EGD 11/17/2018 findings as noted above. Nursing reports patient had moderate-sized solid stool with melena characteristics. No reported hematemesis. GERD history [id number] Anemia Addendum--calls placed to patient's daughter Caitlyn Faustin x2. (attempted to do discuss plan of care including plan for EGD and to answer any questions she may have). Ms. Faustin requested we place additional call at later time due to her inability to discuss plan of care at that present time. Additional call made, no answer, voicemail message left Plan -Continue PPI -Protonix drip -Monitor hemoglobin and hematocrit-serial labs ordered -Transfuse as required to keep Hgb 7.5-8 -Monitor for bleeding -Hold tube feedings at midnight -Obtain consent for EGD-consider EGD in a.m. if family agreeable and patient stable for procedure -Avoid anticoagulants -Avoid NSAIDs -Supportive care -Further recommendations to follow This patient has been seen by myself and Dr. Musa and this note is written on his behalf - Attending Attestation Dr. Musa
[2018-12-30] MEDS: Pantoprazole Inj 80 MG in Sodium Chlor 0.9% Inj 100 ML IV.CONT SCH ×2 (13:32→22:15)
[2018-12-30] MEDS ORDERED: Epoetin Alfa Inj 20,000 UNIT/ML Vial SQ ONE (14:00)
--- NOTE | 2018-12-30 14:19 | P.CONPAL ---
Consult Service: Palliative Care Requesting Physician: Olga Weiss Reason for Consult: a. To assist with evaluation and management of symptoms including: Pain, debility. b. To assist medical decision maker(s) with: better understanding of current medical conditions; weighing benefits/burdens of medical treatment options; making medical treatment decisions. Primary Care Provider: Hong Peterson MD History of Present Illness History of Present Illness: Mrs. Larsen is an 83 y/o female with significant medical history to include chronic idiopathic pancreatitis, hypertension, GJ tube placement, chronic kidney disease, biliary stent placement, chronic anemia and chronic leukocytosis who presented to ED via EMS on 12/28/17 for evaluation of shortness of breath. Family reports that patient is slightly less responsive than her baseline, reports of mechanical fall with no injuries. ED workup revealing leukocytosis 26.7, Hgb 9.2, BUN/creatinine 287/5.91. Lactic acid 2.5. UA negative for nitrates, small leukocytes. Chest x-ray with patchy bilateral lower lobe infiltrates. Head CT negative for acute process. Patient was admitted for further monitoring and management of sepsis. Infectious disease consulted on 12/29/18 in the setting of pneumonia and severe sepsis. Blood cultures positive for gram-negative rods. Patient was continued on IV antibiotics, pending urine culture. Nephrology consulted on 12/29/18 in the setting of worsening acute on chronic kidney failure. Patient with history of CKD stage III, BUN/creatinine on admission 287/5.91, metabolic acidosis with 803 14.7. Abdomen/bladder ultrasound 12/29 revealing small echogenic kidneys bilaterally consistent with medical renal disease, mild right-sided hydronephrosis and a stable right-sided renal cyst. Clinical course complicated by GI bleed with melena stool and decreased hemoglobin from 9.2 at presentation to 7.4. GI consulted 12/30, patient was last seen by GI during her previous hospitalization in early November. Last EGD 11/17/18 revealing normal esophagus, medium-sized hiatal hernia, gastroenterostomy and medium sized ulcer. Plan for EGD tomorrow a.m. if family agreeable. Patient known to palliative care services. Multiple recent hospitalizations in the setting of chronic pancreatitis and abdominal pain, acute on chronic kidney failure and infections. Most recent hospitalization from 11/15/18 to 11/22/18 secondary to acute GI bleed, chronic abdominal pain and acute on chronic kidney injury. Patient with recurrent either hepatic pancreatitis which started over 5 years ago. Patient with multiple ERCP procedures on May, June and July 2018 with biliary stent placement and exchanges. Patient with significant history of multifactorial chronic anemia in the setting of chronic kidney disease and chronic inflammatory disease. Most recent EGD with biopsy on 11/17/18 as a stated above. Patient with significant history of chronic leukocytosis, hematology has been following. No evidence of leukemia as per hematology. Patient with history of elevated sed rate and C-reactive protein which are consistent with inflammatory process. Patient seen in her room. She was resting in bed in no acute distress. Opening eyes to verbal stimuli but not tracking or following any commands. No family at bedside. Patient nonverbal, not attempting to communicate. Patient noted with facial grimacing with abdominal palpation. Ongoing tube feeding. Laboratory workup today revealing hemoglobin of 7.4, 2 units of PRBC ordered by primary team. BUN/creatinine remains elevated to 280/4.70. Telephone call to patient's daughter Caitlyn , left message on voicemail. Returned to patient's room and met with family to include granddaughter Anita, patient's sister and niece. Daughter Caitlyn not present as she is at work. Dr. Eddy spoke to family at bedside for medical update. Patient appears end-of-life at this time. Granddaughter Anita verbalizing frustration with family communication among patient's daughter Caitlyn and additional family members. Reviewed [place] statue, parivz Brady is HCP as she is the next of kin. Granddaughter Anita reports that she is the one caring for patient at home, she reports that patient's condition worsen 2 days ago in the setting of lethargy, shortness of breath and anginal medical status. Granddaughter Anita reports that she is noted blood inside of patient's GJ tube. Family appropriately tearful, ongoing emotional support and active listening provided. Spiritual services offered and accepted, patient of Orthodox donn. Confirmed with [facility] that patient was under hospice services from to 11/15/18 and 11/23/18 to 12/28/18. Family revoked hospice services during this admission. 15:44. Lengthy telephone conversation with patient's daughter Caitlyn and her son Yahaira. Medical update provided. Share concerns of patient's clinical condition and overall poor prognosis in the setting of multiple chronic ongoing comorbidities, sepsis/pneumonia, acute on chronic kidney failure and GI bleed. Reviewed patient's multiple recent hospitalizations and overall debility. Reviewed that patient appears end-of-life, life expectancy of days if illness run its natural course. Reviewed in great detail risks, benefits and limitations of CPR, intubation and mechanical ventilation given overall poor prognosis for survival. Reviewed recommendations for comfort directed care with continuation of hospice services in the setting of patient's condition. Daughter Caitlyn very emotional, verbalizing that she is unable to make a decision at this time. Her son Yahaira is very familiar with hospice and he is supportive of comfort -directed care. 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 Daughter was encouraged to continue goals of care conversation with additional family. Function/Cognitive Trajectory: Patient with multiple recent hospitalizations. Family reports that she was independent with ADLs, history of frequent falls. Residing with daughter in private home. Ambulating with a walker. Review of Systems unobtainable due to mental condition PMFSH - History History Provided By: Family Member, Medical Record - Medical History Medical History: Medical History (Last Updated 12/30/18 @ 13:40 by Renetta Amin APRN) Chronic anemia Hypertension Anxiety CKD (chronic kidney disease) stage 3, GFR 30-59 ml/min Encounter for gastrojejunal (GJ) tube placement GERD (gastroesophageal reflux disease) Hx of blood transfusion reaction Hypertension Idiopathic pancreatitis Pancreatitis - Surgical History Surgical History: Surgical History (Last Reviewed 12/29/18 @ 08:12 by Andi Higginbotham) History of total left knee replacement (TKR) Hx of cholecystectomy S/P ERCP - Family History Family History: Family History (Last Reviewed 12/28/18 @ 20:42 by Harmony Marrero MD) Other Has 1 child Has 1 living child - Social History I have reviewed the patient's Social History: Yes - Tobacco History Second Hand Smoke Exposure: No Smoking Status: Never smoker - Alcohol History How Often Do You Have a Drink Containing Alcohol: Never - Substance Use History Substance History: No History of Abuse - Travel History Recent Travel in the [place] Within the Last 8 Weeks: No Recent Travel Out of the Country Within the Last 8 Weeks: No - Immunization History Tetanus Immunization: Unsure Hx Influenza Vaccine This Season: Unable to Assess Medications and Allergies Active Medications: Active Medications Acetaminophen (Tylenol Liq) 650 mg G-TUBE Q4H PRN PRN Reason: Temp > 100.4 Hydrocodone Bitart/Acetaminophen (Basin 5/325) 1 tab G-TUBE Q4H PRN PRN Reason: Pain 1-10 Al Hydroxide/Mg Hydroxide (Milk Of Magnesia Liq) 30 ml G-TUBE Q12H PRN PRN Reason: Mild Constipation Lipase/Protease/Amylase (Mando Kapoor ) 1 cap PO TIDPC [facility] Last Admin: 12/30/18 08:53 Dose: 1 cap Bisacodyl (Dulcolax Supp) 10 mg RECTAL DAILY PRN PRN Reason: SEVERE CONSITIPATION Calcium Carbonate (Tums Chew) 500 mg CHEW BID [facility] Last Admin: 12/29/18 22:39 Dose: 500 mg Duloxetine HCl (Cymbalta) 20 mg PO DAILY [facility] Last Admin: 12/30/18 08:52 Dose: 20 mg Epoetin Jesus (Epogen Inj) 20,000 unit SQ ONCE ONE Stop: 12/30/18 14:01 Azithromycin 500 mg/ Sodium (Chloride) 250 mls @ 250 mls/hr IV.SIG Q24H [facility] Last Infusion: 12/29/18 23:37 Dose: Infused Cefepime HCl 2,000 mg/ Sodium (Chloride) 100 mls @ 200 mls/hr IV.SIG Q24H [facility] Last Admin: 12/30/18 06:04 Dose: 200 mls/hr Sodium Bicarbonate 75 meq/ (Sodium Chloride) 1,000 mls @ 125 mls/hr IV.CONT .Q8H [facility] Last Infusion: 12/30/18 08:54 Dose: 125 mls/hr Sodium Chloride (Ns Inj) 250 mls @ 15 mls/hr IV.SIG ONCE HITESH Stop: 12/31/18 04:39 Pantoprazole Sodium 80 mg/ (Sodium Chloride) 100 mls @ 10 mls/hr IV.CONT Q10H HITESH Lactulose (Lactulose Liq) 30 ml G-TUBE DAILY PRN PRN Reason: SEVERE CONSITIPATION Metoprolol Tartrate (Lopressor) 25 mg G-TUBE BID [facility] Last Admin: 12/30/18 08:52 Dose: 25 mg Nifedipine (Procardia Xl) 30 mg PO BID [facility] Last Admin: 12/29/18 22:39 Dose: 30 mg Ondansetron HCl (Zofran Inj) 4 mg IV.PUSH Q6H PRN PRN Reason: NAUSEA OR VOMITING Pantoprazole Sodium (Protonix) 40 mg PO BID [facility] Last Admin: 12/29/18 22:39 Dose: 40 mg Senna/Docusate Sodium (Mattie-Colace) 1 tab G-TUBE BID [facility] Last Admin: 12/30/18 08:53 Dose: 1 tab Sennosides (Senna Liq) 17.2 mg G-TUBE Q12H PRN PRN Reason: Moderate Constipation Sodium Chloride (Ns Flush) 2 ml IV.FLUSH PRN PRN PRN Reason: FLUSH AFTER USING IV ACCESS Sodium Chloride (Ns Flush) 2 ml IV.FLUSH BID [facility] Last Admin: 12/30/18 08:53 Dose: 2 ml Sterile Water (Free Water) 200 ml G-TUBE Q6HR [facility] Last Admin: 12/30/18 12:49 Dose: 200 ml Sucralfate (Carafate) 1 gm G-TUBE TID [facility] Last Admin: 12/30/18 09:14 Dose: Not Given Ursodiol (Actigall) 300 mg G-TUBE BID [facility] Last Admin: 12/30/18 09:14 Dose: Not Given Allergies Allergy/AdvReac Type Severity Reaction Status Date / Time No Known Allergies Allergy Verified 11/15/18 23:46 Home Medications Medication Instructions Recorded Confirmed Type [id number] [Creon] 1 tab PO TIDPC 05/16/18 12/28/18 History magnesium hydroxide [Presley Milk 311 mg PO QID PRN 05/16/18 12/28/18 History of Magnesia] metoprolol tartrate 25 mg PO BID 05/16/18 12/28/18 History pantoprazole 40 mg PO BID 05/16/18 12/28/18 History sucralfate 1 g PO TID 05/16/18 12/28/18 History morphine 15 mg PO BID PRN 11/18/18 12/28/18 History Advance Directives Living Will: No Healthcare Surrogate: No Power of Bridge Construction Inspector: Yes Power of Bridge Construction Inspector Name: Daughter Caitlyn Perez Power of Bridge Construction Inspector Relationship to Patient: Children Physical Exam Vital Signs: Vital Signs - 24 hr 12/29/18 16:00 12/29/18 20:00 12/30/18 00:00 Temperature 97.4 F L 97.9 F 98.1 F Pulse Rate 122 H 123 H 110 H Respiratory Rate 16 20 20 Blood Pressure 153/69 H 127/73 122/60 Pulse Oximetry 98 99 97 12/30/18 04:00 12/30/18 09:30 12/30/18 09:35 Temperature 97.7 F 97 F L Pulse Rate 121 H 124 H Respiratory Rate 20 15 Blood Pressure 133/62 133/61 Pulse Oximetry 96 95 100 12/30/18 12:00 Temperature 97.2 F L Pulse Rate 125 H Respiratory Rate 15 Blood Pressure 130/68 Pulse Oximetry 99 I&O: Intake & Output 12/28/18 12/29/18 12/30/18 12/31/18 06:59 06:59 06:59 06:59 Intake Total 2600 / 2600 4550 / 4550 400 / 400 Output Total 1375 / 1375 Balance 2600 / 2600 3175 / 3175 400 / 400 Weight 58.2 kg 58.2 kg Physical Exam: CONSTITUTIONAL/GENERAL: Ill looking elderly female in bed in no acute distress. TUBES/LINES/DRAINS: PIV, feeding tube. SKIN: No jaundice, rashes, or lesions. No wounds seen anteriorly. Skin temperature appropriate. Not diaphoretic. HEAD: Atraumatic. Normocephalic. EYES: Pupils equal and round and reactive. No scleral icterus. No injection or drainage. ENT: Hearing grossly normal. Nose without bleeding or purulent drainage. Dry lips. NECK: Trachea midline. Supple, nontender. CARDIOVASCULAR: Regular rate and rhythm. Peripheral pulses symmetric. RESPIRATORY/CHEST: Symmetric, unlabored respirations. Clear, diminished breath sounds bilaterally. GASTROINTESTINAL: Abdomen soft, tender right upper quadrant on palpation. Guarding. GENITOURINARY: Without palpable bladder distension. MUSCULOSKELETAL: Extremities without clubbing, cyanosis, or edema. No mottling or clubbing. NEUROLOGICAL: Lethargic. Briefly opening eyes to verbal stimuli but not following any commands. Nonverbal. PSYCHIATRIC: Calm. Diagnostic Tests Laboratory: Laboratory Results - last 72 hr 12/28/18 12/28/18 12/28/18 20:26 20:26 20:26 WBC 26.7 H RBC 3.20 L Hgb 9.2 L Hct 28.1 L MCV 87.8 MCH 28.7 MCHC 32.7 RDW 16.9 Plt Count 397 MPV 9.2 Prelim Diff (Auto) Neut % (Auto) 92.4 H Lymph % (Auto) 2.2 L [place] % (Auto) 5.1 Eos % (Auto) 0.1 Baso % (Auto) 0.2 Neut # (Auto) 24.7 H Lymph # (Auto) 0.6 L [place] # (Auto) 1.3 H Eos # (Auto) 0.0 Baso # (Auto) 0.0 WBC Differential . Seg Neuts % (Manual) Band Neuts % (Manual) Lymphocytes % (Manual) Monocytes % (Manual) Abs Neuts (Manual) Nucleated RBCs/100 WBC Differential Comment Auto diff final Platelet Estimate Platelet Morphology Sodium 135 L Potassium 4.4 Chloride 99 Carbon Dioxide 17.3 L Anion Gap 19 H BUN 287 H Creatinine 5.91 H Estimated GFR 8 L Random Glucose 105 Lactic Acid Calcium 9.2 Phosphorus Magnesium Iron TIBC % Saturation Ferritin Total Bilirubin 0.2 AST 17 ALT 35 Alkaline Phosphatase 102 Ammonia 51 H Troponin I Less than 0.02 L B-Natriuretic Peptide Total Protein 8.0 Albumin 2.4 L Urine Color Urine Clarity Urine pH Ur Specific [place] Urine Protein Urine Glucose (UA) Urine Ketones Urine Occult Blood Urine Nitrate Urine Bilirubin Urine Urobilinogen Ur Leukocyte Esterase Urine RBC Urine WBC Ur Squamous Epith Cells Amorphous Sediment Urine Bacteria Micro UA Comment Ur Microscopic Review Urine Culture Comments Urine Osmolality Ur Random Creatinine Ur Random Sodium Blood Type Blood Type Recheck Antibody Screen MTS Gel Crossmatch 12/28/18 12/28/18 12/28/18 20:26 20:28 23:58 WBC RBC Hgb Hct MCV MCH MCHC RDW Plt Count MPV Prelim Diff (Auto) Neut % (Auto) Lymph % (Auto) [place] % (Auto) Eos % (Auto) Baso % (Auto) Neut # (Auto) Lymph # (Auto) [place] # (Auto) Eos # (Auto) Baso # (Auto) WBC Differential Seg Neuts % (Manual) Band Neuts % (Manual) Lymphocytes % (Manual) Monocytes % (Manual) Abs Neuts (Manual) Nucleated RBCs/100 WBC Differential Comment Platelet Estimate Platelet Morphology Sodium Potassium Chloride Carbon Dioxide Anion Gap BUN Creatinine Estimated GFR Random Glucose Lactic Acid 2.5 H 2.5 H Calcium Phosphorus Magnesium Iron TIBC % Saturation Ferritin Total Bilirubin AST ALT Alkaline Phosphatase Ammonia Troponin I B-Natriuretic Peptide 125 H Total Protein Albumin Urine Color Urine Clarity Urine pH Ur Specific [place] Urine Protein Urine Glucose (UA) Urine Ketones Urine Occult Blood Urine Nitrate Urine Bilirubin Urine Urobilinogen Ur Leukocyte Esterase Urine RBC Urine WBC Ur Squamous Epith Cells Amorphous Sediment Urine Bacteria Micro UA Comment Ur Microscopic Review Urine Culture Comments Urine Osmolality Ur Random Creatinine Ur Random Sodium Blood Type Blood Type Recheck Antibody Screen [facility] Gel Crossmatch 12/29/18 12/29/18 12/29/18 06:53 06:53 12:30 WBC 18.4 H RBC 2.48 L Hgb 7.1 L D 8.8 L Hct 21.9 L 28.1 L MCV 88.3 MCH 28.6 MCHC 32.4 RDW 17.1 Plt Count 296 MPV 8.6 Prelim Diff (Auto) Neut % (Auto) 90.1 H Lymph % (Auto) 3.2 L [place] % (Auto) 6.3 Eos % (Auto) 0.3 Baso % (Auto) 0.1 Neut # (Auto) 16.6 H Lymph # (Auto) 0.6 L [place] # (Auto) 1.1 H Eos # (Auto) 0.0 Baso # (Auto) 0.0 WBC Differential . Seg Neuts % (Manual) Band Neuts % (Manual) Lymphocytes % (Manual) Monocytes % (Manual) Abs Neuts (Manual) Nucleated RBCs/100 WBC Differential Comment Auto diff final Platelet Estimate Platelet Morphology Sodium 141 Potassium 4.0 Chloride 110 H D Carbon Dioxide 14.2 L Anion Gap 17 H BUN 244 H Creatinine 5.19 H Estimated GFR 10 L Random Glucose 85 Lactic Acid Calcium 8.1 L D Phosphorus Magnesium Iron TIBC % Saturation Ferritin Total Bilirubin AST ALT Alkaline Phosphatase Ammonia Troponin I B-Natriuretic Peptide Total Protein Albumin Urine Color Urine Clarity Urine pH Ur Specific [place] Urine Protein Urine Glucose (UA) Urine Ketones Urine Occult Blood Urine Nitrate Urine Bilirubin Urine Urobilinogen Ur Leukocyte Esterase Urine RBC Urine WBC Ur Squamous Epith Cells Amorphous Sediment Urine Bacteria Micro UA Comment Ur Microscopic Review Urine Culture Comments Urine Osmolality Ur Random Creatinine Ur Random Sodium Blood Type Blood Type Recheck Antibody Screen [facility] Gel Crossmatch 12/29/18 12/29/18 12/29/18 13:00 17:35 17:35 WBC RBC Hgb Hct MCV MCH MCHC RDW Plt Count MPV Prelim Diff (Auto) Neut % (Auto) Lymph % (Auto) [place] % (Auto) Eos % (Auto) Baso % (Auto) Neut # (Auto) Lymph # (Auto) [place] # (Auto) Eos # (Auto) Baso # (Auto) WBC Differential Seg Neuts % (Manual) Band Neuts % (Manual) Lymphocytes % (Manual) Monocytes % (Manual) Abs Neuts (Manual) Nucleated RBCs/100 WBC Differential Comment Platelet Estimate Platelet Morphology Sodium Potassium Chloride Carbon Dioxide Anion Gap BUN Creatinine Estimated GFR Random Glucose Lactic Acid Calcium Phosphorus Magnesium Iron TIBC % Saturation Ferritin Total Bilirubin AST ALT Alkaline Phosphatase Ammonia Troponin I B-Natriuretic Peptide Total Protein Albumin Urine Color Red Urine Clarity Cloudy H Urine pH 6.0 Ur Specific [place] 1.012 Urine Protein 30 H Urine Glucose (UA) Negative Urine Ketones Negative Urine Occult Blood Large H Urine Nitrate Negative Urine Bilirubin Negative Urine Urobilinogen Less than 2 Ur Leukocyte Esterase Small H Urine RBC 149 H Urine WBC 14 H Ur Squamous Epith Cells <1 Amorphous Sediment Rare H Urine Bacteria Many H Micro UA Comment Culture indicated Ur Microscopic Review Not Reportable Urine Culture Comments Culture indicated Urine Osmolality 442 Ur Random Creatinine 27 Ur Random Sodium 76 Blood Type Blood Type Recheck Antibody Screen MTS Gel Crossmatch 12/30/18 12/30/18 12/30/18 05:52 05:52 12:05 WBC 22.4 H RBC 2.66 L Hgb 7.4 L Hct 23.4 L MCV 87.8 MCH 27.9 MCHC 31.8 L RDW 17.3 H Plt Count 279 MPV 8.8 Prelim Diff (Auto) Slide review pending Neut % (Auto) 90.2 H Lymph % (Auto) 3.5 L [place] % (Auto) 5.7 Eos % (Auto) 0.2 Baso % (Auto) 0.4 Neut # (Auto) 20.3 H Lymph # (Auto) 0.8 L [place] # (Auto) 1.3 H Eos # (Auto) 0.0 Baso # (Auto) 0.1 WBC Differential Manual diff final Seg Neuts % (Manual) 82 H Band Neuts % (Manual) 12 H Lymphocytes % (Manual) 3 L Monocytes % (Manual) 3 Abs Neuts (Manual) 21.1 H Nucleated RBCs/100 WBC 1 H Differential Comment . Platelet Estimate Normal Platelet Morphology Normal Sodium 141 Potassium 3.6 Chloride 111 H Carbon Dioxide 16.9 L Anion Gap 13 BUN 228 H Creatinine 4.70 H Estimated GFR Random Glucose 120 H Lactic Acid Calcium 8.4 L Phosphorus 2.9 Magnesium 2.4 Iron 14 L TIBC 174 L % Saturation 8.1 L Ferritin 1242 H Total Bilirubin AST ALT Alkaline Phosphatase Ammonia Troponin I B-Natriuretic Peptide Total Protein Albumin 1.9 L Urine Color Urine Clarity Urine pH Ur Specific [place] Urine Protein Urine Glucose (UA) Urine Ketones Urine Occult Blood Urine Nitrate Urine Bilirubin Urine Urobilinogen Ur Leukocyte Esterase Urine RBC Urine WBC Ur Squamous Epith Cells Amorphous Sediment Urine Bacteria Micro UA Comment Ur Microscopic Review Urine Culture Comments Urine Osmolality Ur Random Creatinine Ur Random Sodium Blood Type B Positive Blood Type Recheck Not needed Antibody Screen Negative MTS Gel Crossmatch See Detail Result Diagrams: 12/30/18 13:17 12/30/18 05:52 Microbiology: Microbiology 12/28/18 20:26 Aerobic Blood Culture - Preliminary Blood - Peripheral No growth in 2 days Anaerobic Blood Culture - Preliminary gram negative rods 12/28/18 20:18 Aerobic Blood Culture - Preliminary Blood - Peripheral No growth in 2 days Anaerobic Blood Culture - Preliminary No growth in 2 days 12/28/18 19:37 Influenza Types A,B Antigen - Final Nasal Wash Negative for FLU A and B antigen Infection due to influenza A or B cannot be ruled out since the antigen present in the sample may be below the detection limit of the test. Imaging: Chest x-ray 12/30/18: Stable examination compared to the prior study with no significant change in the multiple bilateral scattered pulmonary infiltrates US kidneys/renal/bladder 12/30/18: 1. Small echogenic kidneys bilaterally consistent with medical renal disease. 2. Mild right-sided hydronephrosis of uncertain etiology. 3. Stable right-sided renal cysts. Head CT 12/28/18: 1. No acute intracranial abnormality. 2. Bifrontal atrophy. Patient/Family Conference Present at Family Conference: Granddaughter Anita, patient's sister and niece. Daughter Caitlyn and her son Yahaira via phone. Family Conference Time: 48 Family Conference Location: Bedside Issues Discussed: * Palliative care role, purpose, approach * Additional medical, psychosocial, and spiritual history * Patients general health, functional status, and cognitive changes in the months leading up to the current hospitalization * Patient/family understanding of the current medical problems * Patient/family understanding of prognosis -patient at end of life, prognosis of days if illness run its natural course. * Patients goals of care as best understood from advance directives and/or conversations and/or values * Current medical treatment options and benefits/burdens of those options * Likely scenarios comparing ongoing aggressive care with a transition to comfort measures only * Questions answered to the best of my ability * Palliative care contact information provided Assessment and Plan - Disease Oriented Problem List (1) Sepsis (2) Pneumonia - Symptom Scale (1) Abdominal pain 0-10 Scale: Unable to quantify Pertinent Non-Medical Issues: Psychosocial: Patient is retired. She had 2 children and one of her children is . She lives with her daughter. Spiritual: Orthodox donn. Legal: Advance directives completed. Ethical issues impacting care: No ethical issues identified. Important Contacts: Daughter Caitlyn Perez [phone] Granddaughter Anita Albert [phone] Prognosis: Mrs. Larsen is an 83 y/o female with significant medical history to include chronic idiopathic pancreatitis, hypertension, GJ tube placement, chronic kidney disease, biliary stent placement, chronic anemia and chronic leukocytosis who presented to ED secondary to shortness of breath. Patient was found septic with GI bleed and worsening kidney failure. Patient with history of weight loss, limited PO intake, difficulty tolerating TF. Seems to have chronic abd pain. She has declined in the recent months with multiple recent acute hospitalizations. Patient had a very high risk for further complications , continued decline and . Patient appears hospice appropriate should family elects comfort-directed care. Patient previously under hospice services , revoked on 12/28/18. Code Status: Full Code Plan: * CODE STATUS: Full code. Risks, benefits and limitations of CPR, intubation and mechanical ventilation were discussed in great detail with parviz Brady. * HEALTHCARE DECISION-MAKING: Patient unable to participating medical decision making secondary to clinical condition, minimally responsive. No designation of healthcare surrogate completed. Patient is single, has 2 children -1 living. As per [place] statue, healthcare proxy decision making falls to the majority of patient's children for which she has 1 surviving child: Caitlyn Perez. * GOALS OF CARE: Patient's daughter Caitlyn acting as HCP is elected to continue current medical management to include FULL code. Palliative care had a lengthy conversation with daughter via telephone, poor prognosis for survival was discussed in the setting of patient's multiple chronic ongoing comorbidities , sepsis/pneumonia, acute on chronic kidney failure, GI bleed, multiple recent hospitalizations and physical deconditioning. CODE STATUS was discussed at length, reviewed that CPR, intubation and mechanical ventilation not likely to provide any meaningful benefit given patient's clinical condition, currently at end of life, and that those interventions may cause pain and suffering at the end of patient's life. Reviewed that patient is end of life with a likely life expectancy of days if illness run its natural course. Reviewed continuation of current medical management vs comfort-directed care with continuation of hospice services. Daughter very emotional, she was encouraged to continue goals of care conversation with additional family. 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 Patient unable to report pain, however, facial grimacing noted on abdominal palpation. Home regimen to include morphine 15 mg twice a day as needed. Currently on [place] 5/325 every 4 hours as needed. No further recommendations at this time. = Debility: Multifactorial in the setting of multiple chronic ongoing comorbidities, continue physical decline and recent multiple hospitalizations. Patient under hospice services since October,. Overall debility anticipated to worsen. * Spiritual services offered and accepted. Patient of [employer] donn. * Palliative care contact information has been provided to patient's family. * Palliative care will continue to follow-up for further clarifications of goals of care as patient's clinical course continues to evolve. Time Spent Total Floor Time (mins): 75 (Total time to include review of summarization of available medical records to include multiple prior acute hospitalizations, physical exam, goals of care conversation with patient's family at bedside, goals of care conversation with patient's daughter via telephone, case discussion with primary team.) >50% Time in Counseling or Coordination of Care: Yes (Total visit time = 75 minutes; > 50% spent counseling/coordinating care) Appreciation Thank you for the opportunity to participate in the care of Park Larsen. Attestation Attestation: To help prompt me to consider important information that might be impacting today's encounter and assessment, information from prior notes written by myself or my colleagues may have been "brought forward" into today's note. My signature on this note, however, is an attestation that I personally performed the exam, history, and/or decision-making noted today, and, unless otherwise indicated, the interactions with patient, family, and staff as well as the review of records all occurred today. I also attest that the listed assessment and stated plan reflect my best clinical judgment today based on the combination of historical information, prior notes, and today's exam/ interactions. When time spent is documented, it refers only to time spent today by the signer, or if indicated, combined time spent today by collaborating physician/nurse practitioner.
[2018-12-30 14:30] LABS: Hematocrit 23.5 % (35.0-46.0); Hemoglobin 7.7 gm/dL (11.6-15.3)
--- NOTE | 2018-12-30 14:30 | P.PNID ---
Subjective Remarks: Patient is extremely lethargic. She has eyes open and she is moving her left upper extremities as if to prevent me from examining her lungs. Not following commands to squeeze with the right upper extremity. She appeared to move her feet to commands. One sister and niece at bedside. She is nonverbal. Afebrile. White blood cell count remain elevated. Blood culture has gram-negative brody in 1 bottle. Urine culture has mixed ev. 83-year-old black female who has a history of idiopathic pancreatitis. The patient was brought to the emergency department with respiratory symptoms. She was on hospice at home and mental status was noted to be worsening. Because of her breathing difficulties, she was brought to the emergency department for evaluation. The patient is not verbally responsive. She has her eyes open, but does not follow any commands and basically stares up at the ceiling. Information is obtained from the medical record and notes. The patient was tachycardic when she came to the emergency department and respiratory rate was increased at 27. White blood cell count was increased to 26.7. She has acute on chronic kidney disease. Chest x-ray was performed and showed patchy bilateral lower lobe infiltrates. The patient reportedly fell at home. A CT scan of the head showed no acute intracranial abnormality. The temperature has been within normal range. Lactic acid level is elevated at 2.5. Past Medical History: PAST MEDICAL HISTORY: Anxiety, hypertension, gastroesophageal reflux disease, idiopathic pancreatitis, history of left knee total replacement, history of cholecystectomy. Allergies/Adverse Reactions: Allergies No Known Allergies Allergy (Verified 11/15/18 23:46) Objective Vital Signs 12/29/18 16:00 12/29/18 20:00 12/30/18 00:00 Temperature 97.4 F L 97.9 F 98.1 F Pulse Rate 122 H 123 H 110 H Respiratory Rate 16 20 20 Blood Pressure 153/69 H 127/73 122/60 Pulse Oximetry 98 99 97 12/30/18 04:00 12/30/18 09:30 12/30/18 09:35 Temperature 97.7 F 97 F L Pulse Rate 121 H 124 H Respiratory Rate 20 15 Blood Pressure 133/62 133/61 Pulse Oximetry 96 95 100 12/30/18 12:00 Temperature 97.2 F L Pulse Rate 125 H Respiratory Rate 15 Blood Pressure 130/68 Pulse Oximetry 99 Intake & Output 02/12/30/18 12/30/18 18:59 06:59 18:59 Intake Total 1500 / 1500 3050 / 3050 400 / 400 Output Total 675 / 675 700 / 700 Balance 825 / 825 2350 / 2350 400 / 400 Weight 58.2 kg Intake: IV 1100 / 1100 2250 / 2250 200 / 200 NS Inj 1,000 ML @ 125 mls/hr IV 1000 / 1000 1000 / 1000 .CONT .Q8H HITESH Rx#:[id number] Sodium Bicarbonate 8.4% Inj 75 1000 / 1000 200 / 200 MEQ In 1/2 Normal Saline Inj 925 ML @ 125 mls/hr IV.CONT . Q8H HITESH Rx#:[id number] Azithromycin Inj 500 MG In NS 250 / 250 Inj 250 ML @ 250 mls/hr IV.SIG Q24H HITESH Rx#:[id number] Maxipime Inj 2,000 MG In NS Inj 100 / 100 100 ML @ 200 mls/hr IV.SIG Q12H HITESH Rx#:[id number] Tube Irrigant 100 / 100 Water Bolus Amount 300 / 300 Free Water Amount 400 / 400 400 / 400 200 / 200 Output: Urine 675 / 675 700 / 700 Other: # Incontinent Voids 3 Date of Last Bowel Movement 12/28/18 12/29/18 12/30/18 # Bowel Movements 1 # Incontinent Bowel Movements 3 12/29/18 13:00 Clean Catch Urine Urine Culture - Final 50-100,000 cfu/mL mixed ev (probable contaminants ) 12/28/18 20:26 Blood - Peripheral Aerobic Blood Culture - Preliminary No growth in 2 days 12/28/18 20:26 Blood - Peripheral Anaerobic Blood Culture - Preliminary gram negative rods 12/28/18 20:18 Blood - Peripheral Aerobic Blood Culture - Preliminary No growth in 2 days 12/28/18 20:18 Blood - Peripheral Anaerobic Blood Culture - Preliminary No growth in 2 days 12/28/18 19:37 Nasal Wash Influenza Types A,B Antigen - Final Negative for FLU A and B antigen Infection due to influenza A or B cannot be ruled out since the antigen present in the sample may be below the detection limit of the test. Lab - Hematology Results 12/28/18 12/29/18 12/29/18 20:26 06:53 12:30 WBC 26.7 H 18.4 H RBC 3.20 L 2.48 L Hgb 9.2 L 7.1 L D 8.8 L Hct 28.1 L 21.9 L 28.1 L MCV 87.8 88.3 MCH 28.7 28.6 MCHC 32.7 32.4 RDW 16.9 17.1 Plt Count 397 296 MPV 9.2 8.6 Prelim Diff (Auto) Neut % (Auto) 92.4 H 90.1 H Lymph % (Auto) 2.2 L 3.2 L [place] % (Auto) 5.1 6.3 Eos % (Auto) 0.1 0.3 Baso % (Auto) 0.2 0.1 Neut # (Auto) 24.7 H 16.6 H Lymph # (Auto) 0.6 L 0.6 L [place] # (Auto) 1.3 H 1.1 H Eos # (Auto) 0.0 0.0 Baso # (Auto) 0.0 0.0 WBC Differential . . Seg Neuts % (Manual) Band Neuts % (Manual) Lymphocytes % (Manual) Monocytes % (Manual) Abs Neuts (Manual) Nucleated RBCs/100 WBC Differential Comment Auto diff final Auto diff final Platelet Estimate Platelet Morphology 12/30/18 05:52 WBC 22.4 H RBC 2.66 L Hgb 7.4 L Hct 23.4 L MCV 87.8 MCH 27.9 MCHC 31.8 L RDW 17.3 H Plt Count 279 MPV 8.8 Prelim Diff (Auto) Slide review pending Neut % (Auto) 90.2 H Lymph % (Auto) 3.5 L [place] % (Auto) 5.7 Eos % (Auto) 0.2 Baso % (Auto) 0.4 Neut # (Auto) 20.3 H Lymph # (Auto) 0.8 L [place] # (Auto) 1.3 H Eos # (Auto) 0.0 Baso # (Auto) 0.1 WBC Differential Manual diff final Seg Neuts % (Manual) 82 H Band Neuts % (Manual) 12 H Lymphocytes % (Manual) 3 L Monocytes % (Manual) 3 Abs Neuts (Manual) 21.1 H Nucleated RBCs/100 WBC 1 H Differential Comment . Platelet Estimate Normal Platelet Morphology Normal Lab - Chemistry Results 12/28/18 12/28/18 12/28/18 20:26 20:26 20:26 Sodium 135 L Potassium 4.4 Chloride 99 Carbon Dioxide 17.3 L Anion Gap 19 H BUN 287 H Creatinine 5.91 H Estimated GFR 8 L Random Glucose 105 Lactic Acid 2.5 H Calcium 9.2 Phosphorus Magnesium Iron TIBC % Saturation Ferritin Total Bilirubin 0.2 AST 17 ALT 35 Alkaline Phosphatase 102 Ammonia 51 H Troponin I Less than 0.02 L B-Natriuretic Peptide Total Protein 8.0 Albumin 2.4 L 12/28/18 12/28/18 12/29/18 20:28 23:58 06:53 Sodium 141 Potassium 4.0 Chloride 110 H D Carbon Dioxide 14.2 L Anion Gap 17 H BUN 244 H Creatinine 5.19 H Estimated GFR 10 L Random Glucose 85 Lactic Acid 2.5 H Calcium 8.1 L D Phosphorus Magnesium Iron TIBC % Saturation Ferritin Total Bilirubin AST ALT Alkaline Phosphatase Ammonia Troponin I B-Natriuretic Peptide 125 H Total Protein Albumin 12/30/18 05:52 Sodium 141 Potassium 3.6 Chloride 111 H Carbon Dioxide 16.9 L Anion Gap 13 BUN 228 H Creatinine 4.70 H Estimated GFR Random Glucose 120 H Lactic Acid Calcium 8.4 L Phosphorus 2.9 Magnesium 2.4 Iron 14 L TIBC 174 L % Saturation 8.1 L Ferritin 1242 H Total Bilirubin AST ALT Alkaline Phosphatase Ammonia Troponin I B-Natriuretic Peptide Total Protein Albumin 1.9 L Imaging: ITS Impressions Head CT 12/28/18 18:52 CONCLUSION: 1. No acute intracranial abnormality. 2. Bifrontal atrophy. . Abdomen/Bladder Ultrasound 12/29/18 00:00 CONCLUSION: 1. Small echogenic kidneys bilaterally consistent with medical renal disease. 2. Mild right-sided hydronephrosis of uncertain etiology. 3. Stable right-sided renal cysts. Chest X-Ray 12/30/18 08:00 CONCLUSION: Stable examination compared to the prior study with no significant change in the multiple bilateral scattered pulmonary infiltrates. Physical Exam: PHYSICAL EXAMINATION: GENERAL: Patient is in no acute distress. Appears more awake but still looks lethargic. HEENT: Head is atraumatic. Extraocular movements grossly intact. Pupils reactive to light. No icterus. Oropharynx unable to visualize since she is not opening her mouth her mouth to commands. External mucosa is moist. NECK: No adenopathy or sweating. LUNGS: Decreased breath sounds with very slight rhonchi at the left base. HEART: Regular S1 and S2 normal. No murmur heard. ABDOMEN: Decreased bowel sounds. Soft, no tenderness appreciated. No masses palpable. EXTREMITIES: No clubbing, cyanosis or edema. SKIN: No rash. NEUROLOGIC: Difficult to assess. Very lethargic and not fully cooperative. PSYCHIATRIC: Unable to assess. Assessment and Plan - Plan IMPRESSION: 1. Leukocytosis, probably secondary to urinary tract infection versus pulmonary system. The patient potentially may have aspirated. 2. Sepsis. Gram-negative bacteria on blood culture. Altered mental status, tachycardia, elevated lactic acid, increased respiratory rate on admission. Pulmonary versus renal source. 3. Abnormal chest x-ray probably due to aspiration pneumonia. 4. Acute kidney disease on top of chronic kidney disease. Clinically she looks a little better. RECOMMENDATIONS: 1. Continue azithromycin. 2. Continue cefepime. Dosing for renal function. 3. Follow the white blood cell count. 4. Monitor the blood culture sensitivity of the gram-negative bacteria. 5. Add Aztreonam while awaiting the sensitivity of the blood cultures.
[2018-12-30] MEDS: Aztreonam Inj 500 MG in Sodium Chlor 0.9% Inj 100 ML IV.SIG SCH (16:18)
[2018-12-30] MEDS: Azithromycin Inj 500 MG in Sodium Chlor 0.9% Inj 250 ML IV.SIG SCH (19:00)
[2018-12-31 00:28] LABS: Hematocrit 33.2 % (35.0-46.0); Hemoglobin 11.1 gm/dL (11.6-15.3)
[2018-12-31] MEDS: Aztreonam Inj 500 MG in Sodium Chlor 0.9% Inj 100 ML IV.SIG SCH ×3 (00:36→15:32)
[2018-12-31] MEDS: Sodium Bicarbonate 8.4% Inj 75 MEQ in Sodium Chloride 0.45 % Inj 925 ML IV.CONT SCH ×3 (01:50→17:41)
[2018-12-31] MEDS: Pantoprazole Inj 80 MG in Sodium Chlor 0.9% Inj 100 ML IV.CONT SCH ×3 (08:11→18:31)
[2018-12-31] MEDS: Metoprolol Tartrate 25 MG Tablet G-TUBE SCH ×2 (08:12→22:28)
[2018-12-31] MEDS: Senna/Docusate Sodium 8.6/50 MG Tablet G-TUBE SCH ×2 (08:12→22:28)
[2018-12-31] MEDS: Sucralfate 1 GM Tablet G-TUBE SCH ×3 (08:12→17:43)
[2018-12-31] MEDS: Lipase/Protease/Amylase 12/38/60 DR Capsule PO SCH ×3 (08:30→17:43)
[2018-12-31 09:31] LABS: Hematocrit 30.3 % (35.0-46.0); Hemoglobin 10.1 gm/dL (11.6-15.3); Mean Corpuscular HGB Conc 33.3 % (32.0-36.0); Mean Corpuscular Hemoglobin 28.2 pg (27.0-34.0); Mean Corpuscular Volume 84.8 fL (80.0-100.0); Mean Platelet Volume 8.7 fL (7.0-11.0); Platelet Count 237 th/mm3 (150-450); Red Blood Count 3.58 mil/mm3 (4.00-5.30); Red Cell Distribution Width 17.2 % (11.6-17.2); White Blood Count 29.8 th/mm3 (4.0-11.0)
[2018-12-31 10:21] LABS: Albumin 1.7 g/dL (3.4-5.0); Anion Gap 13 meq/L (5-15); Calcium 8.2 mg/dL (8.5-10.1); Carbon Dioxide 20.7 meq/L (21.0-32.0); Chloride 112 meq/L (98-107); Glucose,Random 102 mg/dL (74-106); Phosphorus 2.7 mg/dL (2.5-4.9); Potassium 3.3 meq/L (3.5-5.1); Sodium 146 meq/L (136-145)
[2018-12-31 10:29] LABS: Blood Urea Nitrogen 207 mg/dL (7-18)
--- NOTE | 2018-12-31 10:33 | P.PNIM ---
Subjective Interval history: Patient remains nonverbal and lethargic Physical Exam Vital signs: Last Vital Signs Temp 98.5 F 12/31/18 04:00 Pulse 116 H 12/31/18 04:00 Resp 20 12/31/18 04:00 BP 125/64 12/31/18 04:00 Pulse Ox 97 12/31/18 04:00 Narrative: GENERAL: This is an 83 year old ill appearing nonverbal lethargic female patient CARDIOVASCULAR: tachycardic RESPIRATORY: decreased GASTROINTESTINAL: Abdomen soft, generalized tenderness, nondistended. Normal active bowel sounds MUSCULOSKELETAL: Extremities without clubbing, cyanosis, or edema. NEURO: ill appearing nonverbal lethargic female patient. Moves all ext x4 withdraws to pain Results Labs CBC & Chem 7: 01/01/19 07:51 01/01/19 07:51 Assessment and Plan Plan Ms. Larsen is an 82 y/o AAF with recurrent idiopathic pancreatitis, GERD, hypertension and GI bleed. She has been hospitalized numerous times for issues with pain control related to recurrent pancreatitis. Most recent hospitalization November 15, 2018 until November 22, 2018 for acute GI bleed, chronic pancreatitis and acute on chronic renal failure. Patient presents with complaints of "weird breathing." Family states that her breathing has been different and appearing more labored since last night or this morning. They state that she is slightly less responsive than her baseline. No fevers that they are aware of. No new pain that they are aware of. She did almost fall yesterday and they do not believe she hit her head but they were not there with her at the time and are not sure. She was on hospice recently but family no longer wants Hospice and would like aggressive care. Sepsis possible source pna vs UTI - Shortness of breath - Chest X-Ray 12/28/18 Patchy bilateral lower lobe infiltrates. - On admission white blood cell count 26.7 -> 18.4 (12/29) -> 22.4 (12/30) -> 29.8 - On admission lactic acid 2.5 - ID consulted, appreciate input - azithromycin (12/28 - present) - cefepime (12/28 - present) - aztreonam (12/30 - present) - NPO with Speech consulted for swallow eval, speech therapy recommending NPO aspiration risks - [place] via feeding tube with free water flush - UA reviewed urine culture 50 -100,00 mixed ev - blood cultures growing Klebsiella pneumonia 1/ bottles WAYNE on CKD - on BUN 287, creatinine 5.91, GFR -> 8 - (12/29) BUN 244, creatinine 5.19, GFR 10 - (12/30) BUN 228, creatinine 4.70 - (12/31) BUN 207, creatinine 4.47 - (12/31) potassium 3.3, carbon dioxide 20.7, Na146, defer to nephrology - IVFs - Nephrology also following, changed IVF to 1/2 NS with bicarb - avoid nephrotoxic agent - recheck BMP in AM Head CT 12/28/18 18:52 CONCLUSION: 1. No acute intracranial abnormality. 2. Bifrontal atrophy. Chronic idiopathic pancreatitis -Continue [place] 1 tablet p.o. every 4 hours as needed for pain -hold home morphine 15 mg p.o. twice daily due to lethargy -Continue home tube feeding Su[place] with goal rate 40mls/hr, with free water flush HTN (hypertension) - continue home procardia XL 30mg BID and metoprolol 25 mg p.o. twice daily with hold parameters GERD (gastroesophageal reflux disease) - PPI Anemia - hgb on admission 9.2 -> 7.1 recheck 8.8 (12/29) -> 7.4 (12/30) 2 units PRBCs -> 11.1 (12/31) - check occult stool - iron 14, TIBC 174, % saturation 8.1, ferritin 1242 - received call from nurse that patient had large black stool - start Protonix drip, PRBC, consult GI - GI recommending EGD, patient did had EGD 11/17/18 Medium sized ulcer was found at the pylorus - family refusing EGD DVT prophylaxis with SCDs Palliative care consult Attending Attestation The exam, history, and the medical decision-making described in the above note were completed with the assistance of the mid-level provider. I reviewed and agree with the findings presented. I attest that I had a [id number] encounter with the patient on the same day, and personally performed and documented my assessment and findings in the medical record. Patient examined. Assessment and plan formulated with Olga Weiss PA-C. I agree with the above. Progress Note: Quality VTE Deep Vein Thrombosis/Pulmonary Embolism Present on Admission: No
--- NOTE | 2018-12-31 17:53 | P.PNGI ---
Subjective Interval history: Patient laying in bed Seems comfortable Nonverbal <ChhayaMariselkadi - Last Filed: 12/31/18 17:43> Physical Exam Vital signs: Vital Signs 12/30/18 18:47 12/30/18 18:57 12/30/18 20:00 Temperature 98.7 F 98.7 F 98.0 F Pulse Rate 113 H 116 H 110 H Respiratory Rate 20 20 20 Blood Pressure 123/74 122/60 120/68 Pulse Oximetry 97 97 98 12/30/18 22:15 12/30/18 22:22 12/31/18 00:00 Temperature 98.0 F 98.1 F Pulse Rate 108 H 118 H Respiratory Rate 20 20 20 Blood Pressure 134/71 118/65 Pulse Oximetry 97 97 12/31/18 04:00 12/31/18 08:00 12/31/18 12:00 Temperature 98.5 F 97.2 F L 97.8 F Pulse Rate 116 H 122 H 115 H Respiratory Rate 20 16 15 Blood Pressure 125/64 144/71 H 147/73 H Pulse Oximetry 97 97 98 12/31/18 16:00 Temperature 97.7 F Pulse Rate 117 H Respiratory Rate 15 Blood Pressure 157/68 H Pulse Oximetry 100 Intake & Output 12/30/18 12/31/18 12/31/18 18:59 06:59 18:59 Intake Total 1500 / 1500 3137 / 3137 1850 / 1850 Output Total 600 / 600 1450 / 1450 Balance 900 / 900 1687 / 1687 1850 / 1850 Weight 64.4 kg Intake: IV 1100 / 1100 1450 / 1450 1650 / 1650 Protonix Inj 80 MG In NS Inj 100 / 100 200 / 200 100 ML @ 10 mls/hr IV.CONT Q10H HITESH Rx#:[id number] Sodium Bicarbonate 8.4% Inj 75 1000 / 1000 1000 / 1000 1000 / 1000 MEQ In 1/2 Normal Saline Inj 925 ML @ 125 mls/hr IV.CONT . Q8H HITESH Rx#:[id number] Azithromycin Inj 500 MG In NS 250 / 250 Inj 250 ML @ 250 mls/hr IV.SIG Q24H HITESH Rx#:[id number] Azactam Inj 500 MG In NS Inj 100 / 100 100 / 100 100 / 100 100 ML @ 200 mls/hr IV.SIG Q8H HITESH Rx#:[id number] Maxipime Inj 2,000 MG In NS Inj 100 / 100 100 ML @ 200 mls/hr IV.SIG Q24H HITESH Rx#:[id number] NS Inj 250 ML @ 15 mls/hr IV. 250 / 250 SIG ONCE HITESH Rx#:[id number] Tube Feeding 627 / 627 Water Bolus Amount 400 / 400 Free Water Amount 400 / 400 260 / 260 200 / 200 Intake (Blood Product) Amt 0 / 0 400 / 400 Rbc As-3 Leukoreduced Unit 0 / 0 400 / 400 [id number] Rbc As-3 Leukoreduced Unit 0 / 0 [id number] Output: Urine 600 / 600 1450 / 1450 Other: Date of Last Bowel Movement 12/30/18 12/30/18 # Bowel Movements 0 3 Narrative: GENERAL: Patient is non verbal. SKIN: Warm and dry. NECK: Supple, trachea midline. No JVD. CARDIOVASCULAR: Sinus tachycardia RRR, RESPIRATORY: Diminished breath sounds bilateral lung bases GASTROINTESTINAL: Abdomen soft, non-tender, nondistended. Peg tube present but not in use MUSCULOSKELETAL: +1 edema bilateral lower ext. <Chhaya,Arskadi - Last Filed: 12/31/18 17:43> Vital signs: Vital Signs 12/30/18 18:57 12/30/18 20:00 12/30/18 22:15 Temperature 98.7 F 98.0 F Pulse Rate 116 H 110 H Respiratory Rate 20 20 20 Blood Pressure 122/60 120/68 Pulse Oximetry 97 98 12/30/18 22:22 12/31/18 00:00 12/31/18 04:00 Temperature 98.0 F 98.1 F 98.5 F Pulse Rate 108 H 118 H 116 H Respiratory Rate 20 20 20 Blood Pressure 134/71 118/65 125/64 Pulse Oximetry 97 97 97 12/31/18 08:00 12/31/18 12:00 12/31/18 16:00 Temperature 97.2 F L 97.8 F 97.7 F Pulse Rate 122 H 115 H 117 H Respiratory Rate 16 15 15 Blood Pressure 144/71 H 147/73 H 157/68 H Pulse Oximetry 97 98 100 Intake & Output 12/30/18 12/31/18 12/31/18 18:59 06:59 18:59 Intake Total 1500 / 1500 3137 / 3137 2150 / 2150 Output Total 600 / 600 1450 / 1450 Balance 900 / 900 1687 / 1687 2150 / 2150 Weight 64.4 kg Intake: IV 1100 / 1100 1450 / 1450 1750 / 1750 Protonix Inj 80 MG In NS Inj 100 / 100 200 / 200 100 ML @ 10 mls/hr IV.CONT Q10H HITESH Rx#:[id number] Sodium Bicarbonate 8.4% Inj 75 1000 / 1000 1000 / 1000 1000 / 1000 MEQ In 1/2 Normal Saline Inj 925 ML @ 125 mls/hr IV.CONT . Q8H HITESH Rx#:[id number] Azithromycin Inj 500 MG In NS 250 / 250 Inj 250 ML @ 250 mls/hr IV.SIG Q24H HITESH Rx#:[id number] Azactam Inj 500 MG In NS Inj 100 / 100 100 / 100 200 / 200 100 ML @ 200 mls/hr IV.SIG Q8H HITESH Rx#:[id number] Maxipime Inj 2,000 MG In NS Inj 100 / 100 100 ML @ 200 mls/hr IV.SIG Q24H HITESH Rx#:[id number] NS Inj 250 ML @ 15 mls/hr IV. 250 / 250 SIG ONCE HITESH Rx#:[id number] Tube Feeding 627 / 627 Water Bolus Amount 400 / 400 Free Water Amount 400 / 400 260 / 260 400 / 400 Intake (Blood Product) Amt 0 / 0 400 / 400 Rbc As-3 Leukoreduced Unit 0 / 0 400 / 400 [id number] Rbc As-3 Leukoreduced Unit 0 / 0 [id number] Output: Urine 600 / 600 1450 / 1450 Other: Date of Last Bowel Movement 12/30/18 12/30/18 # Bowel Movements 0 3 <Margy Bravo - Last Filed: 12/31/18 18:51> Results - Labs CBC & Chem 7: 12/31/18 09:07 12/31/18 09:07 Laboratory Results - last 24 hr 12/30/18 12/31/18 12/31/18 12:05 00:06 09:07 WBC 29.8 H RBC 3.58 L Hgb 11.1 L D 10.1 L Hct 33.2 L 30.3 L MCV 84.8 MCH 28.2 MCHC 33.3 RDW 17.2 Plt Count 237 MPV 8.7 Sodium Potassium Chloride Carbon Dioxide Anion Gap BUN Creatinine Random Glucose Calcium Phosphorus Magnesium Albumin Blood Type B Positive Blood Type Recheck Not needed Antibody Screen Negative MTS Gel Crossmatch See Detail 12/31/18 09:07 WBC RBC Hgb Hct MCV MCH MCHC RDW Plt Count MPV Sodium 146 H Potassium 3.3 L Chloride 112 H Carbon Dioxide 20.7 L Anion Gap 13 BUN 207 H Creatinine 4.47 H Random Glucose 102 Calcium 8.2 L Phosphorus 2.7 Magnesium 2.0 Albumin 1.7 L Blood Type Blood Type Recheck Antibody Screen MTS Gel Crossmatch Microbiology 12/28/18 20:26 Blood - Peripheral Aerobic Blood Culture - Preliminary No growth in 3 days 12/28/18 20:26 Blood - Peripheral Anaerobic Blood Culture - Final Klebsiella pneumoniae 12/28/18 20:18 Blood - Peripheral Aerobic Blood Culture - Preliminary No growth in 3 days 12/28/18 20:18 Blood - Peripheral Anaerobic Blood Culture - Preliminary No growth in 3 days 12/29/18 13:00 Clean Catch Urine Urine Culture - Final 50-100,000 cfu/mL mixed ev (probable contaminants ) <Yang Shaver - Last Filed: 12/31/18 17:43> - Labs CBC & Chem 7: 12/31/18 09:07 12/31/18 09:07 Laboratory Results - last 24 hr 12/30/18 12/31/18 12/31/18 12:05 00:06 09:07 WBC 29.8 H RBC 3.58 L Hgb 11.1 L D 10.1 L Hct 33.2 L 30.3 L MCV 84.8 MCH 28.2 MCHC 33.3 RDW 17.2 Plt Count 237 MPV 8.7 Sodium Potassium Chloride Carbon Dioxide Anion Gap BUN Creatinine Random Glucose Calcium Phosphorus Magnesium Albumin MTS Gel Crossmatch See Detail 12/31/18 09:07 WBC RBC Hgb Hct MCV MCH MCHC RDW Plt Count MPV Sodium 146 H Potassium 3.3 L Chloride 112 H Carbon Dioxide 20.7 L Anion Gap 13 BUN 207 H Creatinine 4.47 H Random Glucose 102 Calcium 8.2 L Phosphorus 2.7 Magnesium 2.0 Albumin 1.7 L MTS Gel Crossmatch Microbiology 12/28/18 20:26 Blood - Peripheral Aerobic Blood Culture - Preliminary No growth in 3 days 12/28/18 20:26 Blood - Peripheral Anaerobic Blood Culture - Final Klebsiella pneumoniae 12/28/18 20:18 Blood - Peripheral Aerobic Blood Culture - Preliminary No growth in 3 days 12/28/18 20:18 Blood - Peripheral Anaerobic Blood Culture - Preliminary No growth in 3 days 12/29/18 13:00 Clean Catch Urine Urine Culture - Final 50-100,000 cfu/mL mixed ev (probable contaminants ) <Margy Bravo - Last Filed: 12/31/18 18:51> Assessment and Plan (1) Melena Status: Acute Code(s): K92.1 - Melena (2) Acute on chronic kidney failure Status: Acute Code(s): N17.9 - Acute kidney failure, unspecified; N18.9 - Chronic kidney disease, unspecified (3) GERD (gastroesophageal reflux disease) Status: Acute Code(s): K21.9 - Gastro-esophageal reflux disease without esophagitis (4) Gastroparesis Status: Acute Code(s): K31.84 - Gastroparesis (5) Anemia Status: Chronic Code(s): D64.9 - Anemia, unspecified - Plan Patient is an 82-year-old female with past medical history significant for chronic kidney disease, gastroesophageal related reflux disease, hypertension and idiopathic pancreatitis. Surgical history significant for left total knee replacement, ERCP, cholecystectomy and gastrojejunal tube placement. Patient currently nonverbal and unable to contribute to history of present illness. Chart review utilized. Patient presented to [facility] emergency room where family reported patient is having difficulty breathing with increased labor. Patient's family reported she has been less responsive. It is not known if patient has had fever or chills or any acute pain. Family reported that patient fell yesterday and it was unwitnessed. Family reports patient was on hospice prior to arrival but now patient requesting aggressive care. Upon consultation, patient's nurse reports patient had moderate amount of solid stool with melena characteristics. Hemoglobin 7.4 hematocrit 23.4. There has been no reported hematemesis. Last EGD noted to be on 11/17/2018 revealed normal esophagus, medium size hiatal hernia , gastroenterostomy, medium-sized ulcer found at the pylorus with normal duodenal mucosa. Pathology revealed:GASTRIC ANTRUM, BIOPSY: ACUTELY ULCERATED ANTRAL MUCOSA WITH MARKED REACTIVE GASTROPATHY, MAY BE SEEN WITH BILE REFLUX OR DRUG THERAPY. A RONALD STAIN IS NEGATIVE FOR HELICOBACTER. Home medication list shows patient has been on pantoprazole 40 mg p.o. twice daily and Carafate 1 g p.o. 3 times daily. Chest x-ray on 12/28/2018 revealed bilateral lower lobe infiltrates for which patient is currently being treated with azithromycin and cefepime. Infectious disease is following. Speech therapy evaluation recommends n.p.o. status due to increased aspiration risk. Our service has been consulted to evaluate patient for GI bleeding with melena stools. GI bleed with melena stools-patient admitted to [facility] with family report of increased labored breathing and decreased responsiveness. Hemoglobin 7.4 hematocrit 23.4 on arrival. Last EGD 11/17/2018 findings as noted above. Nursing reports patient had moderate-sized solid stool with melena characteristics. No reported hematemesis. GERD history [id number] Anemia Addendum--calls placed to patient's daughter Caitlyn Faustin x2. (attempted to do discuss plan of care including plan for EGD and to answer any questions she may have). Ms. Faustin requested we place additional call at later time due to her inability to discuss plan of care at that present time. Additional call made, no answer, voicemail message left 12/31/2018 Assessment GI bleed with melanotic stools GERD CAP Chronic kidney failure- creatinine 4.47 BUN 207 CHF Leukocytosis Hemoglobin 10.1 after 2 units of blood transfusion Hematocrit 30.3 white count 29.8 trending up Liver enzymes were normal BNP elevated 125 Plan -Tube feeding via PEG tube -Continue IV infusion PPI -Monitor for active bleeding -Monitor lab -For EGD in the morning -N.p.o. after midnight -please turn off tube feeding -Obtain consent -Avoid NSAIDs/anticoagulant -Supportive care -Further recommendations to follow This patient has been seen by myself and Dr. Bravo and this note is written on his behalf - Attending Attestation Dr Bravo <Yang Shaver - Last Filed: 12/31/18 17:43> (1) Melena Status: Acute Code(s): K92.1 - Melena (2) Acute on chronic kidney failure Status: Acute Code(s): N17.9 - Acute kidney failure, unspecified; N18.9 - Chronic kidney disease, unspecified (3) GERD (gastroesophageal reflux disease) Status: Acute Code(s): K21.9 - Gastro-esophageal reflux disease without esophagitis (4) Gastroparesis Status: Acute Code(s): K31.84 - Gastroparesis (5) Anemia Status: Chronic Code(s): D64.9 - Anemia, unspecified - Plan Seen and examined with TORQUE TESTER, no active bleeding. Consents obtained from daughter for egd tomorrow. TF on hold. Discussed with Dr Eddy. <Margy Bravo - Last Filed: 12/31/18 18:51> <Margy Bravo - Last Filed: 12/31/18 18:51> (2) Acute on chronic kidney failure Qualifiers: (5) Anemia Qualifiers:
[2018-12-31] MEDS: Azithromycin Inj 500 MG in Sodium Chlor 0.9% Inj 250 ML IV.SIG SCH (18:00)
--- NOTE | 2018-12-31 22:09 | P.PNNP ---
Subjective Interval history: Patient seen in the afternoon, remain non verbal and on GT feeding. Physical Exam Vital signs: Vital Signs 12/30/18 22:15 12/30/18 22:22 12/31/18 00:00 Temperature 98.0 F 98.1 F Pulse Rate 108 H 118 H Respiratory Rate 20 20 20 Blood Pressure 134/71 118/65 Pulse Oximetry 97 97 12/31/18 04:00 12/31/18 08:00 12/31/18 12:00 Temperature 98.5 F 97.2 F L 97.8 F Pulse Rate 116 H 122 H 115 H Respiratory Rate 20 16 15 Blood Pressure 125/64 144/71 H 147/73 H Pulse Oximetry 97 97 98 12/31/18 16:00 12/31/18 20:00 Temperature 97.7 F 98.1 F Pulse Rate 117 H 115 H Respiratory Rate 15 17 Blood Pressure 157/68 H 148/69 H Pulse Oximetry 100 96 Intake & Output 12/31/18 12/31/18 01/01/19 06:59 18:59 06:59 Intake Total 3137 / 3137 2150 / 2150 Output Total 1450 / 1450 Balance 1687 / 1687 2150 / 2150 Weight 64.4 kg Intake: IV 1450 / 1450 1750 / 1750 Protonix Inj 80 MG In NS Inj 100 / 100 200 / 200 100 ML @ 10 mls/hr IV.CONT Q10H HITESH Rx#:[id number] Sodium Bicarbonate 8.4% Inj 75 1000 / 1000 1000 / 1000 MEQ In 1/2 Normal Saline Inj 925 ML @ 125 mls/hr IV.CONT . Q8H HITESH Rx#:[id number] Azithromycin Inj 500 MG In NS 250 / 250 Inj 250 ML @ 250 mls/hr IV.SIG Q24H HITESH Rx#:[id number] Azactam Inj 500 MG In NS Inj 100 / 100 200 / 200 100 ML @ 200 mls/hr IV.SIG Q8H HITESH Rx#:[id number] Maxipime Inj 2,000 MG In NS Inj 100 / 100 100 ML @ 200 mls/hr IV.SIG Q24H HITESH Rx#:[id number] NS Inj 250 ML @ 15 mls/hr IV. 250 / 250 SIG ONCE HITESH Rx#:[id number] Tube Feeding 627 / 627 Water Bolus Amount 400 / 400 Free Water Amount 260 / 260 400 / 400 Intake (Blood Product) Amt 400 / 400 Rbc As-3 Leukoreduced Unit 400 / 400 [id number] Output: Urine 1450 / 1450 Other: Date of Last Bowel Movement 12/30/18 # Bowel Movements 3 Narrative: GENERAL: Patient is non verbal. SKIN: Warm and dry. NECK: Supple, trachea midline. No JVD. CARDIOVASCULAR: Sinus tachycardia RRR, RESPIRATORY: Diminished breath sounds bilateral lung bases GASTROINTESTINAL: Abdomen soft, non-tender, nondistended. Peg tube present but not in use MUSCULOSKELETAL: +1 edema bilateral lower ext. Assessment and Plan - Assessment (1) Acute on chronic kidney failure Code(s): N17.9 - Acute kidney failure, unspecified; N18.9 - Chronic kidney disease, unspecified Status: Acute Qualifiers: Plan: Patient has chronic kidney disease and develop WAYNE. Has been on GT feeding, has metabolic acidosis. Continue IVF with NaHco3. Also getting GT feeding. D/W the Grand daughter. (2) Anemia Code(s): D64.9 - Anemia, unspecified Status: Chronic Qualifiers: Plan: HGB at 7.4, iron sat low but ferritin elevated. Will give 1 dose of procrit. (3) Pneumonia Code(s): J18.9 - Pneumonia, unspecified organism Status: Acute Plan: On antibiotics BC pending
[2019-01-01] MEDS: Aztreonam Inj 500 MG in Sodium Chlor 0.9% Inj 100 ML IV.SIG SCH ×4 (00:42→23:58)
[2019-01-01] MEDS: Sodium Bicarbonate 8.4% Inj 75 MEQ in Sodium Chloride 0.45 % Inj 925 ML IV.CONT SCH ×5 (04:25→23:59)
[2019-01-01 08:32] LABS: Hematocrit 30.5 % (35.0-46.0); Hemoglobin 10.2 gm/dL (11.6-15.3); Mean Corpuscular HGB Conc 33.4 % (32.0-36.0); Mean Corpuscular Hemoglobin 28.7 pg (27.0-34.0); Mean Corpuscular Volume 85.9 fL (80.0-100.0); Mean Platelet Volume 8.7 fL (7.0-11.0); Platelet Count 251 th/mm3 (150-450); Red Blood Count 3.55 mil/mm3 (4.00-5.30); Red Cell Distribution Width 17.3 % (11.6-17.2); White Blood Count 29.8 th/mm3 (4.0-11.0)
[2019-01-01] MEDS: Pantoprazole Inj 40 MG Vial IV.PUSH SCH ×2 (08:35→22:21)
[2019-01-01] MEDS: Metoprolol Tartrate 25 MG Tablet G-TUBE SCH ×2 (08:36→22:23)
[2019-01-01] MEDS: Senna/Docusate Sodium 8.6/50 MG Tablet G-TUBE SCH ×2 (08:36→22:21)
[2019-01-01] MEDS: Sucralfate 1 GM Tablet G-TUBE SCH ×3 (08:36→18:23)
[2019-01-01] MEDS: Lipase/Protease/Amylase 12/38/60 DR Capsule PO SCH ×3 (08:37→18:23)
[2019-01-01 09:07] LABS: Albumin 1.5 g/dL (3.4-5.0); Carbon Dioxide 25.1 meq/L (21.0-32.0); Magnesium 1.9 mg/dL (1.5-2.5); Phosphorus 2.3 mg/dL (2.5-4.9)
[2019-01-01 09:12] LABS: Potassium 2.9 meq/L (3.5-5.1)
--- NOTE | 2019-01-01 10:07 | XR ---
EXAM DATE: 01/01/2019 9:56 AM EST AGE/SEX: 83 years / Female INDICATIONS: Cough CLINICAL DATA: This is the patient's subsequent encounter. Patient reports that signs and symptoms h ave been present for 4 - 6 days and indicates a pain score of 0/10. MEDICAL/SURGICAL HISTORY: . Renal failure, chronic. Hypertension. . . G Tube. COMPARISON: [facility] [place], CHEST 1V SINGLE AP, 12/30/2018. . FINDINGS: A single AP view of the chest demonstrates bilateral patchy alveolar infiltrates with more coalescenc e on current study. Heart in the upper limits of normal in size. The cardiomediastinal contours are unremarkable. Osseous structures are intact. CONCLUSION: Worsening bilateral patchy infiltrates Electronically signed by: Yunier Santana MD Board Certified Radiologist 01/01/2019 10:06 AM EST
[2019-01-01] MEDS ORDERED: Lidocaine PF 1% Inj 5 ML Syringe OTHER ONE (13:00)
--- NOTE | 2019-01-01 13:15 | GIPROC ---
[facility] [address] [facility]. [facility] [place], [address] EGD PROCEDURE REPORT EXAM DATE: 01/01/2019 PATIENT NAME: Park Larsen MR #: [id number] BIRTHDATE: 1935 ATTENDING: Margy Bravo MD ORDER #: [id number] WORKERS' COMPENSATION CLAIMS EXAMINER: Guadalupe Gary and Radha Machado STATUS: inpatient INDICATIONS: The patient is a 83 yr old female here for an EGD due to acute post hemorrhagic anemia and iron deficiency anemia PROCEDURE PERFORMED: EGD w/ biopsy MEDICATIONS: None and Per Anesthesia. TOPICAL ANESTHETIC: CONSENT: The patient understands the risks and benefits of the procedure and understands that these risks include, but are not limited to: sedation, allergic reaction, infection, perforation and/or bleeding. Alternative means of evaluation and treatment include, among others: physical exam, x-rays, and/or surgical intervention. The patient elects to proceed with this endoscopic procedure. medical equipment was checked for proper function. Hand hygiene and appropriate measures for infection prevention was taken. After the risks, benefits and alternatives of the procedure were thoroughly explained, Informed consent was verified, confirmed and timeout was successfully executed by the treatment team. The patient was anesthetized with topical anesthesia and the [id number] (Pedi C) endoscope was introduced through the mouth and advanced to the first portion of the duodenum. Retroflexed views revealed no abnormalities The gastroscope was then slowly withdrawn and removed. 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 The length of circumferential Nguyen's was 1cm (Avilla C1) and the length of Maximal extent of Nguyen's was 2cm (Avilla M2). There was no nodular mucosa noted in the Nguyen's segment. STOMACH: A single non-bleeding, deep and clean-based ulcer ranging between 3-7mm in size with surrounding edema and heaped up edges was found in the gastric antrum. Biopsies were taken at edge of the ulcer. DUODENUM: G/J tube in place. ADVERSE EVENTS: There were no complications. IMPRESSIONS: 1. 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 Single ulcer ranging between 3-7mm in size was found in the gastric antrum; biopsies were taken 3. G/J tube in place 4. Retroflexed views revealed no abnormalities RECOMMENDATIONS: 1. Await biopsy results. Biopsy results will not be ready for 7-10 days. If you don't hear from us in two weeks, call our office for biopsy results. 2. Anti-reflux regimen 3. Continue PPI 4. Resume TF PATIENT CONDITION: stable DISPOSITION: Inpatient REPEAT EXAM: Return 1 month EGD pending biopsy results Margy Bravo MD eSigned: Margy Bravo MD 01/01/2019 1:14 PM cc: PATIENT NAME: Park Larsen Jaleel MR#: [id number]
--- NOTE | 2019-01-01 14:56 | P.PNIM ---
Subjective Interval history: Pt opens eyes spontaneous but remains nonverbal. Pt does NOT follow commands. Physical Exam Vital signs: Last Vital Signs Temp 98.0 F 01/01/19 13:18 Pulse 103 H 01/01/19 13:30 Resp 20 01/01/19 13:30 BP 130/75 01/01/19 13:30 Pulse Ox 97 01/01/19 13:30 Narrative: GENERAL: This is an 83 year old ill appearing nonverbal lethargic female patient CARDIOVASCULAR: tachycardic RESPIRATORY: decreased GASTROINTESTINAL: Abdomen soft, generalized tenderness, nondistended. Normal active bowel sounds MUSCULOSKELETAL: Extremities without clubbing, cyanosis, or edema. NEURO: ill appearing nonverbal lethargic female patient. Moves all ext x4 withdraws to pain Results Labs CBC & Chem 7: 01/01/19 07:51 01/01/19 07:51 Assessment and Plan Assessment (1) Melena: Code(s): K92.1 - Melena Status: Acute (2) Acute on chronic kidney failure: Code(s): N17.9 - Acute kidney failure, unspecified; N18.9 - Chronic kidney disease, unspecified Status: Acute (3) GERD (gastroesophageal reflux disease): Code(s): K21.9 - Gastro-esophageal reflux disease without esophagitis Status: Acute (4) Gastroparesis: Code(s): K31.84 - Gastroparesis Status: Acute (5) Anemia: Code(s): D64.9 - Anemia, unspecified Status: Chronic Plan Ms. Larsen is an 82 y/o AAF with recurrent idiopathic pancreatitis, GERD, hypertension and GI bleed. She has been hospitalized numerous times for issues with pain control related to recurrent pancreatitis. Most recent hospitalization November 15, 2018 until November 22, 2018 for acute GI bleed, chronic pancreatitis and acute on chronic renal failure. Patient presents with complaints of "weird breathing." Family states that her breathing has been different and appearing more labored since last night or this morning. They state that she is slightly less responsive than her baseline. No fevers that they are aware of. No new pain that they are aware of. She did almost fall yesterday and they do not believe she hit her head but they were not there with her at the time and are not sure. She was on hospice recently but family no longer wants Hospice and would like aggressive care. Sepsis possible source pna vs UTI - Shortness of breath - Chest X-Ray 12/28/18 Patchy bilateral lower lobe infiltrates. - On admission white blood cell count 26.7 -> 18.4 (12/29) -> 22.4 (12/30) -> 29.8 - On admission lactic acid 2.5 - ID consulted, appreciate input - azithromycin (12/28 - present) - cefepime (12/28 - present) - aztreonam (12/30 - present) - NPO with Speech consulted for swallow eval, speech therapy recommending NPO aspiration risks - Suplena via feeding tube with free water flush - UA reviewed urine culture 50 -100,00 mixed ev - blood cultures growing Klebsiella pneumonia 1/ bottles - Pt is actively dying - Pt is in ARF - Some mild improvement with hydration, but now with worsening pulmonary infiltrated likely CHF - I had an extended conversation with pt's daughter and then again with pt's daughter/granddaughter - I explained pt's poor prognosis, days to weeks at most - I recommended DNR and hospice - following family meeting this evening, Caitlyn requested that I change code status to DNR. - I recommend hospice. WAYNE on CKD - on BUN 287, creatinine 5.91, GFR -> 8 - (12/29) BUN 244, creatinine 5.19, GFR 10 - (12/30) BUN 228, creatinine 4.70 - (12/31) BUN 207, creatinine 4.47 - (12/31) potassium 3.3, carbon dioxide 20.7, Na146, defer to nephrology - IVFs - Nephrology also following, changed IVF to 1/2 NS with bicarb - avoid nephrotoxic agent - recheck BMP in AM Head CT 12/28/18 18:52 CONCLUSION: 1. No acute intracranial abnormality. 2. Bifrontal atrophy. Chronic idiopathic pancreatitis -Continue Ronco 1 tablet p.o. every 4 hours as needed for pain -hold home morphine 15 mg p.o. twice daily due to lethargy -Continue home tube feeding Suplena with goal rate 40mls/hr, with free water flush HTN (hypertension) - continue home procardia XL 30mg BID and metoprolol 25 mg p.o. twice daily with hold parameters GERD (gastroesophageal reflux disease) - PPI Anemia - hgb on admission 9.2 -> 7.1 recheck 8.8 (12/29) -> 7.4 (12/30) 2 units PRBCs -> 11.1 (12/31) - check occult stool - iron 14, TIBC 174, % saturation 8.1, ferritin 1242 - received call from nurse that patient had large black stool - Protonix drip, PRBC - EGD 11/17/18 Medium sized ulcer was found at the pylorus - EGD 12/01/18 --> gastric ulcer, barett's esophagus DVT prophylaxis with SCDs Palliative care consult Progress Note: Quality VTE Deep Vein Thrombosis/Pulmonary Embolism Present on Admission: No _ (1) Anemia Qualifiers: Anemia type: Bone marrow failure anemia type: Chronic kidney disease stage : Folate deficiency anemia type: Hemolytic anemia type: Iron deficiency anemia type: Other causes of anemia: Vitamin B12 deficiency anemia type: (2) GERD (gastroesophageal reflux disease) Qualifiers: Esophagitis presence: (3) Acute on chronic kidney failure Qualifiers: Acute renal failure type: Chronic kidney disease stage: Qualified Code(s) : N18.9 - Chronic kidney disease, unspecified
[2019-01-01] MEDS ORDERED: Potassium Chloride 25 MEQ Effervescent Tablet PO SCH (15:00)
[2019-01-01] MEDS ORDERED: Potassium Chloride 25 MEQ Effervescent Tablet G-TUBE SCH (15:16)
[2019-01-01] MEDS: Azithromycin Inj 500 MG in Sodium Chlor 0.9% Inj 250 ML IV.SIG SCH (18:23)
--- NOTE | 2019-01-01 21:05 | P.PNNP ---
Subjective Interval history: Patient seen in the late afternoon, remain non verbal, not in distress. Physical Exam Vital signs: Vital Signs 12/31/18 23:58 01/01/19 00:00 01/01/19 04:00 Temperature 98.6 F Pulse Rate 110 H 114 H 124 H Respiratory Rate 16 Blood Pressure 140/70 Pulse Oximetry 98 01/01/19 04:23 01/01/19 08:00 01/01/19 12:00 Temperature 98.8 F 98.7 F 99.0 F Pulse Rate 119 H 109 H 114 H Respiratory Rate 20 19 Blood Pressure 135/78 129/61 159/75 H Pulse Oximetry 97 96 95 01/01/19 13:18 01/01/19 13:30 01/01/19 16:00 Temperature 98.0 F 97.9 F Pulse Rate 106 H 103 H 110 H Respiratory Rate 20 19 Blood Pressure 134/74 130/75 150/78 H Pulse Oximetry 99 97 95 01/01/19 20:00 Temperature 97.9 F Pulse Rate 119 H Respiratory Rate 17 Blood Pressure 155/81 H Pulse Oximetry 96 Intake & Output 01/01/19 01/01/19 01/02/19 06:59 18:59 06:59 Intake Total 2621 / 2621 1750 / 1750 Output Total 700 / 700 200 / 200 Balance 1921 / 1921 1550 / 1550 Weight 64.5 kg Intake: IV 1393 / 1393 1300 / 1300 Protonix Inj 80 MG In NS Inj 43 / 43 100 ML @ 10 mls/hr IV.CONT Q10H [facility] Rx#:[id number] Sodium Bicarbonate 8.4% Inj 75 1000 / 1000 1000 / 1000 MEQ In 1/2 Normal Saline Inj 925 ML @ 125 mls/hr IV.CONT . Q8H [facility] Rx#:[id number] Azithromycin Inj 500 MG In NS 250 / 250 Inj 250 ML @ 250 mls/hr IV.SIG Q24H [facility] Rx#:[id number] Azactam Inj 500 MG In NS Inj 100 / 100 200 / 200 100 ML @ 200 mls/hr IV.SIG Q8H [facility] Rx#:[id number] Maxipime Inj 2,000 MG In NS Inj 100 / 100 100 ML @ 200 mls/hr IV.SIG Q24H H[facility] Rx#:[id number] Oral 0 / 0 Tube Feeding 228 / 228 Tube Irrigant 600 / 600 Free Water Amount 400 / 400 200 / 200 Anesthesia Amount 250 / 250 Output: Urine 700 / 700 200 / 200 Other: # Voids 2 2 Date of Last Bowel Movement 12/31/18 # Bowel Movements 1 5 Narrative: GENERAL: Patient is non verbal. SKIN: Warm and dry. NECK: Supple, trachea midline. No JVD. CARDIOVASCULAR: Sinus tachycardia RRR, RESPIRATORY: Diminished breath sounds bilateral lung bases GASTROINTESTINAL: Abdomen soft, non-tender, nondistended. Peg tube present but not in use MUSCULOSKELETAL: +1 edema bilateral lower ext. Assessment and Plan - Assessment (1) Acute on chronic kidney failure Code(s): N17.9 - Acute kidney failure, unspecified; N18.9 - Chronic kidney disease, unspecified Status: Acute Qualifiers: Plan: Patient has chronic kidney disease and develop WAYNE. Has been on GT feeding, has metabolic acidosis. Continue IVF with NaHco3. Also getting GT feeding. Now post EGD, to restart GT feeding. Creatinine is slowly improving, now 4.2. (2) Anemia Code(s): D64.9 - Anemia, unspecified Status: Chronic Qualifiers: Plan: HGB at 7.4, iron sat low but ferritin elevated. Will give 1 dose of procrit. (3) Pneumonia Code(s): J18.9 - Pneumonia, unspecified organism Status: Acute Plan: On antibiotics BC pending
[2019-01-02] MEDS: Aztreonam Inj 500 MG in Sodium Chlor 0.9% Inj 100 ML IV.SIG SCH ×3 (08:14→23:23)
[2019-01-02] MEDS: Senna/Docusate Sodium 8.6/50 MG Tablet G-TUBE SCH ×2 (08:15→21:42)
[2019-01-02] MEDS: Sucralfate 1 GM Tablet G-TUBE SCH ×3 (08:15→17:35)
[2019-01-02] MEDS: Metoprolol Tartrate 25 MG Tablet G-TUBE SCH ×2 (08:15→21:42)
[2019-01-02] MEDS: Pantoprazole Inj 40 MG Vial IV.PUSH SCH ×2 (08:16→21:43)
[2019-01-02] MEDS: Sodium Bicarbonate 8.4% Inj 75 MEQ in Sodium Chloride 0.45 % Inj 925 ML IV.CONT SCH (08:16)
--- NOTE | 2019-01-02 08:42 | P.PNIM ---
Subjective Interval history: Patient continues to be nonverbal and lethargic Family has decided to make patient a DNR Physical Exam Vital signs: Last Vital Signs Temp 97.8 F 01/02/19 08:00 Pulse 133 H 01/02/19 08:00 Resp 18 01/02/19 08:00 BP 162/87 H 01/02/19 08:00 Pulse Ox 93 L 01/02/19 08:00 Narrative: GENERAL: This is an 83 year old ill appearing nonverbal lethargic female patient CARDIOVASCULAR: tachycardic RESPIRATORY: decreased GASTROINTESTINAL: Abdomen soft, generalized tenderness, nondistended. Normal active bowel sounds MUSCULOSKELETAL: Extremities without clubbing, cyanosis, or edema. NEURO: ill appearing nonverbal lethargic female patient. Does not follow commands Results Labs CBC & Chem 7: 01/02/19 08:44 01/02/19 08:44 Assessment and Plan Assessment (1) Melena: Code(s): K92.1 - Melena Status: Acute (2) Acute on chronic kidney failure: Code(s): N17.9 - Acute kidney failure, unspecified; N18.9 - Chronic kidney disease, unspecified Status: Acute (3) GERD (gastroesophageal reflux disease): Code(s): K21.9 - Gastro-esophageal reflux disease without esophagitis Status: Acute (4) Gastroparesis: Code(s): K31.84 - Gastroparesis Status: Acute (5) Anemia: Code(s): D64.9 - Anemia, unspecified Status: Chronic Plan Ms. Larsen is an 82 y/o AAF with recurrent idiopathic pancreatitis, GERD, hypertension and GI bleed. She has been hospitalized numerous times for issues with pain control related to recurrent pancreatitis. Most recent hospitalization November 15, 2018 until November 22, 2018 for acute GI bleed, chronic pancreatitis and acute on chronic renal failure. Patient presents with complaints of "weird breathing." Family states that her breathing has been different and appearing more labored since last night or this morning. They state that she is slightly less responsive than her baseline. No fevers that they are aware of. No new pain that they are aware of. She did almost fall yesterday and they do not believe she hit her head but they were not there with her at the time and are not sure. She was on hospice recently but family no longer wants Hospice and would like aggressive care. Sepsis possible source pna vs UTI - Shortness of breath - Chest X-Ray 12/28/18 Patchy bilateral lower lobe infiltrates. - On admission white blood cell count 26.7 -> 18.4 (12/29) -> 22.4 (12/30) -> 29.8 - On admission lactic acid 2.5 - ID consulted, appreciate input - azithromycin (12/28 - present) - cefepime (12/28 - present) - aztreonam (12/30 - present) - NPO with Speech consulted for swallow eval, speech therapy recommending NPO aspiration risks - Suplena via feeding tube with free water flush - UA reviewed urine culture 50 -100,00 mixed ev - blood cultures growing Klebsiella pneumonia 1/ bottles - Pt is actively dying - Pt is in ARF - Some mild improvement with hydration, but now with worsening pulmonary infiltrated likely CHF - I had an extended conversation with pt's daughter and then again with pt's daughter/granddaughter - I explained pt's poor prognosis, days to weeks at most - I recommended DNR and hospice - following family meeting this evening, Caitlyn requested that I change code status to DNR. - I recommend hospice. WAYNE on CKD - on BUN 287, creatinine 5.91, GFR -> 8 - (12/29) BUN 244, creatinine 5.19, GFR 10 - (12/30) BUN 228, creatinine 4.70 - (12/31) BUN 207, creatinine 4.47 - (12/31) potassium 3.3, carbon dioxide 20.7, Na146, defer to nephrology - IVFs - Nephrology also following, changed IVF to 1/2 NS with bicarb - avoid nephrotoxic agent - recheck BMP in AM Head CT 12/28/18 18:52 CONCLUSION: 1. No acute intracranial abnormality. 2. Bifrontal atrophy. Chronic idiopathic pancreatitis -Continue [place] 1 tablet p.o. every 4 hours as needed for pain -hold home morphine 15 mg p.o. twice daily due to lethargy -Continue home tube feeding Suplena with goal rate 40mls/hr, with free water flush HTN (hypertension) - continue home procardia XL 30mg BID and metoprolol 25 mg p.o. twice daily with hold parameters GERD (gastroesophageal reflux disease) - PPI Anemia - hgb on admission 9.2 -> 7.1 recheck 8.8 (12/29) -> 7.4 (12/30) 2 units PRBCs -> 11.1 (12/31) - check occult stool - iron 14, TIBC 174, % saturation 8.1, ferritin 1242 - received call from nurse that patient had large black stool - Protonix drip, PRBC - EGD 11/17/18 Medium sized ulcer was found at the pylorus - EGD 01/01/19 --> gastric ulcer, barett's esophagus DVT prophylaxis with SCDs Palliative care consult Labs for 01/02 pending Progress Note: Quality VTE Deep Vein Thrombosis/Pulmonary Embolism Present on Admission: No _ (1) Anemia Qualifiers: Anemia type: Bone marrow failure anemia type: Chronic kidney disease stage : Folate deficiency anemia type: Hemolytic anemia type: Iron deficiency anemia type: Other causes of anemia: Vitamin B12 deficiency anemia type: (2) GERD (gastroesophageal reflux disease) Qualifiers: Esophagitis presence: (3) Acute on chronic kidney failure Qualifiers: Acute renal failure type: Chronic kidney disease stage: Qualified Code(s) : N18.9 - Chronic kidney disease, unspecified
[2019-01-02 08:59] LABS: Hematocrit 30.1 % (35.0-46.0); Mean Corpuscular HGB Conc 33.3 % (32.0-36.0); Mean Corpuscular Volume 84.1 fL (80.0-100.0); Mean Platelet Volume 8.2 fL (7.0-11.0); Platelet Count 236 th/mm3 (150-450); Red Blood Count 3.57 mil/mm3 (4.00-5.30); Red Cell Distribution Width 17.1 % (11.6-17.2); White Blood Count 24.4 th/mm3 (4.0-11.0)
--- NOTE | 2019-01-02 08:59 | XR ---
EXAM DATE: 01/02/2019 8:31 AM EST AGE/SEX: 83 years / Female INDICATIONS: Shortness of breath. CLINICAL DATA: This is the patient's subsequent encounter. Patient reports that signs and symptoms h ave been present for 1 week and indicates a pain score of 0/10. MEDICAL/SURGICAL HISTORY: . Renal failure, chronic. Hypertension. . G-Tube. COMPARISON: [facility] [place] 1V SINGLE AP, 01/01/2019. . FINDINGS: Patchy airspace disease is seen in both the right and left lungs, showing minimal improvement. The heart and pulmonary vascularity are normal. There is no significant pleural effusion or pneumotho rax. The portion of the bony skeleton visualized is unremarkable. CONCLUSION: Minimal improvement, persistent airspace disease remains in both lungs. Electronically signed by: Jamie Tabor MD Board Certified Radiologist 01/02/2019 8:57 AM EST
[2019-01-02] MEDS: Lipase/Protease/Amylase 12/38/60 DR Capsule PO SCH ×3 (09:18→17:35)
[2019-01-02 09:28] LABS: Albumin 1.4 g/dL (3.4-5.0); Carbon Dioxide 28.4 meq/L (21.0-32.0); Phosphorus 1.8 mg/dL (2.5-4.9)
[2019-01-02 09:37] LABS: Potassium 2.6 meq/L (3.5-5.1)
--- NOTE | 2019-01-02 11:03 | P.PNGI ---
Subjective Interval history: Lethargic Family present Patient nonverbal Physical Exam Vital signs: Vital Signs 01/01/19 12:00 01/01/19 13:18 01/01/19 13:30 Temperature 99.0 F 98.0 F Pulse Rate 114 H 106 H 103 H Respiratory Rate 19 20 20 Blood Pressure 159/75 H 134/74 130/75 Pulse Oximetry 95 99 97 01/01/19 16:00 01/01/19 20:00 01/02/19 00:00 Temperature 97.9 F 97.9 F 98.2 F Pulse Rate 110 H 110 H 105 H Respiratory Rate 19 17 21 Blood Pressure 150/78 H 155/81 H 161/82 H Pulse Oximetry 95 96 96 01/02/19 04:54 01/02/19 08:00 01/02/19 10:21 Temperature 98.6 F 97.8 F Pulse Rate 110 H 133 H Respiratory Rate 22 18 Blood Pressure 151/86 H 162/87 H Pulse Oximetry 98 93 L 95 Intake & Output 01/01/19 01/02/19 01/02/19 18:59 06:59 18:59 Intake Total 1750 / 1750 1850 / 1850 1250 / 1250 Output Total 200 / 200 Balance 1550 / 1550 1850 / 1850 1250 / 1250 Weight 64.5 kg Intake: IV 1300 / 1300 1450 / 1450 1250 / 1250 Sodium Bicarbonate 8.4% Inj 75 1000 / 1000 1000 / 1000 1150 / 1150 MEQ In 1/2 Normal Saline Inj 925 ML @ 125 mls/hr IV.CONT . Q8H [facility] Rx#:[id number] Azithromycin Inj 500 MG In NS 250 / 250 Inj 250 ML @ 250 mls/hr IV.SIG Q24H [facility]IT[facility] Rx#:[id number] Azactam Inj 500 MG In NS Inj 200 / 200 100 / 100 100 / 100 100 ML @ 200 mls/hr IV.SIG Q8H [facility] Rx#:[id number] Maxipime Inj 2,000 MG In NS Inj 100 / 100 100 / 100 100 ML @ 200 mls/hr IV.SIG Q24H HITESH Rx#:[id number] Oral 0 / 0 Free Water Amount 200 / 200 400 / 400 Anesthesia Amount 250 / 250 Output: Urine 200 / 200 Other: # Voids 2 4 Date of Last Bowel Movement 12/31/18 01/02/19 # Bowel Movements 5 3 - Constitutional chronically ill appearing - Routine HEENT Exam Head: Present: normocephalic - Routine Respiratory Exam Present: decreased breath sounds. Absent: respiratory distress - Routine Cardiovascular Exam Present: RRR, tachycardia - Routine Abdominal Exam Present: soft, normoactive bowel sounds. Absent: tenderness, distended, firm - Routine Skin Exam Present: dry, warm - Routine Neurological Exam Lethargic Unable to follow commands Results - Labs CBC & Chem 7: 01/02/19 08:44 01/02/19 08:44 Laboratory Results - last 24 hr 01/02/19 01/02/19 08:44 08:44 WBC 24.4 H RBC 3.57 L Hgb 10.0 L Hct 30.1 L MCV 84.1 MCH 28.0 MCHC 33.3 RDW 17.1 Plt Count 236 MPV 8.2 Sodium 149 H Potassium 2.6 L* Chloride 109 H Carbon Dioxide 28.4 Anion Gap 12 BUN 142 H Creatinine 4.28 H Estimated GFR 12 L Random Glucose 164 H Calcium 8.0 L Phosphorus 1.8 L Albumin 1.4 L Microbiology 12/28/18 20:26 Blood - Peripheral Aerobic Blood Culture - Preliminary No growth in 4 days 12/28/18 20:26 Blood - Peripheral Anaerobic Blood Culture - Final Klebsiella pneumoniae 12/28/18 20:18 Blood - Peripheral Aerobic Blood Culture - Preliminary No growth in 4 days 12/28/18 20:18 Blood - Peripheral Anaerobic Blood Culture - Preliminary No growth in 4 days - Imaging Impressions Chest X-Ray 01/02/19 08:00 CONCLUSION: Minimal improvement, persistent airspace disease remains in both lungs. Assessment and Plan (1) Melena Status: Acute Code(s): K92.1 - Melena (2) Acute on chronic kidney failure Status: Acute Code(s): N17.9 - Acute kidney failure, unspecified; N18.9 - Chronic kidney disease, unspecified (3) GERD (gastroesophageal reflux disease) Status: Acute Code(s): K21.9 - Gastro-esophageal reflux disease without esophagitis (4) Gastroparesis Status: Acute Code(s): K31.84 - Gastroparesis (5) Anemia Status: Chronic Code(s): D64.9 - Anemia, unspecified - Plan Patient is an 82-year-old female with past medical history significant for chronic kidney disease, gastroesophageal related reflux disease, hypertension and idiopathic pancreatitis. Surgical history significant for left total knee replacement, ERCP, cholecystectomy and gastrojejunal tube placement. Patient currently nonverbal and unable to contribute to history of present illness. Chart review utilized. Patient presented to [facility] emergency room where family reported patient is having difficulty breathing with increased labor. Patient's family reported she has been less responsive. It is not known if patient has had fever or chills or any acute pain. Family reported that patient fell yesterday and it was unwitnessed. Family reports patient was on hospice prior to arrival but now patient requesting aggressive care. Upon consultation, patient's nurse reports patient had moderate amount of solid stool with melena characteristics. Hemoglobin 7.4 hematocrit 23.4. There has been no reported hematemesis. Last EGD noted to be on 11/17/2018 revealed normal esophagus, medium size hiatal hernia , gastroenterostomy, medium-sized ulcer found at the pylorus with normal duodenal mucosa. Pathology revealed:GASTRIC ANTRUM, BIOPSY: ACUTELY ULCERATED ANTRAL MUCOSA WITH MARKED REACTIVE GASTROPATHY, MAY BE SEEN WITH BILE REFLUX OR DRUG THERAPY. A RONALD STAIN IS NEGATIVE FOR HELICOBACTER. Home medication list shows patient has been on pantoprazole 40 mg p.o. twice daily and Carafate 1 g p.o. 3 times daily. Chest x-ray on 12/28/2018 revealed bilateral lower lobe infiltrates for which patient is currently being treated with azithromycin and cefepime. Infectious disease is following. Speech therapy evaluation recommends n.p.o. status due to increased aspiration risk. Our service has been consulted to evaluate patient for GI bleeding with melena stools. GI bleed with melena stools-patient admitted to [facility] with family report of increased labored breathing and decreased responsiveness. Hemoglobin 7.4 hematocrit 23.4 on arrival. Last EGD 11/17/2018 findings as noted above. Nursing reports patient had moderate-sized solid stool with melena characteristics. No reported hematemesis. GERD history [id number] Anemia Addendum--calls placed to patient's daughter Caitlyn Faustin [phone] (attempted to do discuss plan of care including plan for EGD and to answer any questions she may have). Ms. Faustin requested we place additional call at later time due to her inability to discuss plan of care at that present time. Additional call made, no answer, voicemail message left 12/31/2018 Assessment GI bleed with melanotic stools GERD CAP Chronic kidney failure- creatinine 4.47 BUN 207 CHF Leukocytosis Hemoglobin 10.1 after 2 units of blood transfusion Hematocrit 30.3 white count 29.8 trending up Liver enzymes were normal BNP elevated 125 01/02/2019 GI bleed/history of GERD-no bleeding reported at this a.m. Leukocytosis /anemia -WBC 24.4 hemoglobin 10.0 hematocrit 30.1 Patient's family has decided DNR status Patient lethargic, nonverbal and unable to follow commands 01/01/2019 EGD revealed the following:. There was short segment Nguyen's esophagus found in the distal esophagus Single ulcer ranging between 3-7mm in size was found in the gastric antrum; biopsies were taken G/J tube in place Retroflexed views revealed no abnormalities Plan -Antireflux regimen -Continue PPI -Monitor labs -Monitor for bleeding -Transfuse as needed to keep hemoglobin greater than 7.5-8 -EGD in 1 month-pending biopsy results -Continue Creon -IV antibiotics as per attending -Bowel regimen -Carafate 1 g 3 times daily -Supportive care -GI will sign off at this time, please notify for any further assistance This patient has been seen by myself and Dr. Musa and this note is written on his behalf - Attending Attestation Dr. Musa (2) Acute on chronic kidney failure Qualifiers: (5) Anemia Qualifiers:
--- NOTE | 2019-01-02 11:27 | P.DS ---
DS: Providers Date of admission: 12/28/18 21:59 Primary care physician: Hong Peterson MD Consults: 12/28/18 22:19 Consult to Nephrology Routine Consulting Provider: Samson Kennedy Does the patient have a Arabic Teacher who follows them?: No Preferred Nephrology Jewelry Enameler:: Ex Chef Physician Reason for Consultation: ARF Notified:: Service Spoke with:: PADMINI Date Notified:: 12/28/18 Time Notified:: 22:30 Ordering Provider: VIN 12/28/18 22:20 Consult to Infectious Diseases Routine Consulting Provider: Mark Dorsey Reason for Consultation: pna, severe sepsis Notified:: Service Spoke with:: PADMINI Date Notified:: 12/28/18 Time Notified:: 22:31 Ordering Provider: VIN 12/30/18 10:33 Consult to Gastroenterology Routine Consulting Provider: Yared Musa V Preferred Jewelry Enameler:: Yared Musa Reason for Consultation: gib tarry stools Notified:: Office Spoke with:: ken Date Notified:: 12/30/18 Time Notified:: 10:44 Ordering Provider: JIM 12/30/18 10:38 Consult to Palliative Care Routine Consulting Provider: Patricia Mendez Reason for Consultation: goals of care Notified:: Service Spoke with:: medardo Date Notified:: 12/30/18 Time Notified:: 10:40 Ordering Provider: ELIU Brief History from admission: Ms. Larsen is an 82 y/o AAF with recurrent idiopathic pancreatitis, GERD, hypertension. She has been hospitalized numerous times for issues with pain control related to recurrent pancreatitis. Most recent hospitalization November 15, 2018 until November 22, 2018 for acute GI bleed , chronic pancreatitis acute on chronic renal failure. Patient currently nonverbal and unable to provide meaningful information. Information gathered from prior charting and physical exam. Patient presented to the ER with complaints of "weird breathing." Family states that her breathing has been different and appearing more labored since last night or this morning. They state that she is slightly less responsive than her baseline. No fevers that they are aware of. No new pain that they are aware of. She did almost fall yesterday and they do not believe she hit her head but they were not there with her at the time and are not sure. She was on hospice recently but family no longer wants Hospice and would like aggressive care. Medical History: Anxiety CKD (chronic kidney disease) stage 3, GFR 30-59 ml/min Encounter for gastrojejunal (GJ) tube placement GERD (gastroesophageal reflux disease) Hypertension Idiopathic pancreatitis Pancreatitis Surgical History: History of total left knee replacement (TKR) Hx of cholecystectomy S/P ERCP Social History: Patient lives at home with her daughter Denies ETOH use or tobacco use Family History: Family history reviewed non-contributory DS: Diagnosis Discharge Diagnosis (1) Melena: Status: Acute (2) Acute on chronic kidney failure: Status: Acute (3) GERD (gastroesophageal reflux disease): Status: Acute (4) Gastroparesis: Status: Acute (5) Anemia: Status: Chronic DS: Summary Ms. Larsen is an 82 y/o AAF with recurrent idiopathic pancreatitis, GERD, hypertension and GI bleed. She has been hospitalized numerous times for issues with pain control related to recurrent pancreatitis. Most recent hospitalization November 15, 2018 until November 22, 2018 for acute GI bleed, chronic pancreatitis and acute on chronic renal failure. Patient presents with complaints of "weird breathing." Family states that her breathing has been different and appearing more labored since last night or this morning. They state that she is slightly less responsive than her baseline. No fevers that they are aware of. No new pain that they are aware of. She did almost fall yesterday and they do not believe she hit her head but they were not there with her at the time and are not sure. She was on hospice recently but family no longer wants Hospice and would like aggressive care. Sepsis possible source pna vs UTI - Shortness of breath - Chest X-Ray 12/28/18 Patchy bilateral lower lobe infiltrates. - On admission white blood cell count 26.7 -> 18.4 (12/29) -> 22.4 (12/30) -> 29.8 - On admission lactic acid 2.5 - ID consulted, appreciate input - azithromycin (12/28 - present) - cefepime (12/28 - present) - aztreonam (12/30 - present) - NPO with Speech consulted for swallow eval, speech therapy recommending NPO aspiration risks - Suplena via feeding tube with free water flush - UA reviewed urine culture 50 -100,00 mixed ev - blood cultures growing Klebsiella pneumonia 11/18 bottles - Pt is actively dying - Pt is in ARF - Some mild improvement with hydration, but now with worsening pulmonary infiltrated likely CHF - I had an extended conversation with pt's daughter and then again with pt's daughter/granddaughter - I explained pt's poor prognosis, days to weeks at most - I recommended DNR and hospice - following family meeting this evening, Caitlyn requested that I change code status to DNR. - I recommend hospice. WAYNE on CKD - on BUN 287, creatinine 5.91, GFR -> 8 - (12/29) BUN 244, creatinine 5.19, GFR 10 - (12/30) BUN 228, creatinine 4.70 - (12/31) BUN 207, creatinine 4.47 - (12/31) potassium 3.3, carbon dioxide 20.7, Na146, defer to nephrology - IVFs per nephrology - Nephrology also following - avoid nephrotoxic agent Head CT 12/28/18 18:52 CONCLUSION: 1. No acute intracranial abnormality. 2. Bifrontal atrophy. Chronic idiopathic pancreatitis -Continue Alvo 1 tablet p.o. every 4 hours as needed for pain -hold home morphine 15 mg p.o. twice daily due to lethargy -Continue home tube feeding Suplena with goal rate 40mls/hr, with free water flush HTN (hypertension) - continue home procardia XL 30mg BID and metoprolol 25 mg p.o. twice daily with hold parameters GERD (gastroesophageal reflux disease) - PPI Anemia - hgb on admission 9.2 -> 7.1 recheck 8.8 (12/29) -> 7.4 (12/30) 2 units PRBCs -> 11.1 (12/31) - check occult stool - iron 14, TIBC 174, % saturation 8.1, ferritin 1242 - received call from nurse that patient had large black stool - Protonix drip, PRBC - EGD 11/17/18 Medium sized ulcer was found at the pylorus - EGD 01/01/19 --> gastric ulcer, barett's esophagus DVT prophylaxis with SCDs Palliative care consult received update from family they would like Hospice consulted and they would like to go home with hospice services today. Patient previously known to [facility] Time Spent with Patient Total time spent providing and/or coordinating discharge services: Quality: VTE Deep Vein Thrombosis/Pulmonary Embolism Present on Admission: No Exam Narrative Exam Narrative: GENERAL: This is an 83 year old ill appearing nonverbal lethargic female patient CARDIOVASCULAR: tachycardic RESPIRATORY: decreased, tachypneic GASTROINTESTINAL: Abdomen soft, generalized tenderness, nondistended. Normal active bowel sounds MUSCULOSKELETAL: Extremities without clubbing, cyanosis, or edema. NEURO: ill appearing nonverbal lethargic female patient. Does not follow commands Results Pending studies at discharge: Pending at discharge 01/01/19 08:02 Surgical [PTH] Routine Labs on day of discharge: Labs from last 24 hours 01/02/19 01/02/19 08:44 08:44 WBC 24.4 H RBC 3.57 L Hgb 10.0 L Hct 30.1 L MCV 84.1 MCH 28.0 MCHC 33.3 RDW 17.1 Plt Count 236 MPV 8.2 Sodium 149 H Potassium 2.6 L* Chloride 109 H Carbon Dioxide 28.4 Anion Gap 12 BUN 142 H Creatinine 4.28 H Estimated GFR 12 L Random Glucose 164 H Calcium 8.0 L Phosphorus 1.8 L Albumin 1.4 L Impressions ITS Impressions Head CT 12/28/18 18:52 CONCLUSION: 1. No acute intracranial abnormality. 2. Bifrontal atrophy. . Abdomen/Bladder Ultrasound 12/29/18 00:00 CONCLUSION: 1. Small echogenic kidneys bilaterally consistent with medical renal disease. 2. Mild right-sided hydronephrosis of uncertain etiology. 3. Stable right-sided renal cysts. Chest X-Ray 01/02/19 08:00 CONCLUSION: Minimal improvement, persistent airspace disease remains in both lungs. Discharge Plan Discharge Disposition Patient Disposition: 50 Hospice/Home Discharge Condition Condition: Fair Discharge Order Discharge Orders: Discharge Order (Routine); Ordered 01/02/19 Ordered By: Olga Weiss Physicians Team Primary Care Provider: Hong Peterson Attending Provider: Alexander Eddy Other Providers: Mark Dorsey ; Samson Kennedy ; Yared Musa V ; Patricia Mendez Rxs /Orders / Referrals /Forms Prescriptions: Continue magnesium hydroxide [Presley Milk of Magnesia] 311 mg Tablet,Chewable 311 mg PO QID PRN (Reason: Constipation) RF: 0 metoprolol tartrate 25 mg Tablet 25 mg PO BID RF: 0 wbkxzi-[id number]-rrrmrci [Creon] 12,000-38,000 -60,000 unit Capsule,Delayed Release(Dr/Ec) 1 tab PO TIDPC RF: 0 pantoprazole 40 mg Tablet,Delayed Release (Dr/Ec) 40 mg PO BID RF: 0 sucralfate 1 gram Tablet 1 g PO TID RF: 0 ursodiol [Actigall] 300 mg Capsule 300 mg PO BID RF: 0 water for injection, sterile Parenteral Solution 200 ml G-Tube Q6HR RF: 0 duloxetine [Cymbalta] 20 mg Capsule,Delayed Release(Dr/Ec) 20 mg PO DAILY RF: 0 nifedipine 30 mg Tablet Extended Release 24hr 30 mg PO BID Qty: 60 RF: 0 calcium carbonate 200 mg calcium (500 mg) Tablet,Chewable 500 mg CHEW BID RF: 0 hydrocodone-acetaminophen [Alvo] 5-325 mg Tablet 1 tab PO Q4H PRN (Reason: Pain) Qty: 30 RF: 0 morphine 15 mg Tablet Extended Release 12hr 15 mg PO BID PRN (Reason: Pain) RF: 0 Referrals: Hong Peterson MD [Primary Care Provider] - See Instructions (follow up in 1 week) Discharge Instructions Patient Printed Instructions: Nifedipine (By mouth), Morphine, Slow Release ( By mouth), Gastrointestinal Bleeding (DC), Hypokalemia (GEN) Additional Instructions: further medication changes and follow up appointments per Hospice Status ED Status: Left Department
[2019-01-02] MEDS: Potassium Chlor 20 mEq Premix 20 MEQ/100 ML PIGGYBACK IV.SIG SCH ×2 (11:38→13:54)
--- NOTE | 2019-01-02 12:21 | P.PNPAL ---
Reason for Visit Reason for visit: a. To assist with evaluation and management of symptoms including: Pain, debility. b. To assist medical decision maker(s) with: better understanding of current medical conditions; weighing benefits/burdens of medical treatment options; making medical treatment decisions. Subjective Subjective/Interval History: Mrs. Larsen is an 83 y/o female with significant medical history to include chronic idiopathic pancreatitis, hypertension, GJ tube placement, chronic kidney disease, biliary stent placement, chronic anemia and chronic leukocytosis who presented to ED secondary to shortness of breath. Patient was found septic with GI bleed and worsening kidney failure. Patient with history of weight loss, limited PO intake, difficulty tolerating TF. Seems to have chronic abd pain. She has declined in the recent months with multiple recent acute hospitalizations. Patient had a very high risk for further complications , continued decline and . Patient seen in her room. She was resting in bed in no acute distress. Opening eyes to verbal stimuli but not tracking or following any commands. Patient underwent EGD with biopsy on 01/01, findings to include Nguyen's esophagus and single ulcer. Chest x-ray today revealing minimal improvement with persistent airspace disease in both lungs. Hemoglobin stable at 10.0, persistent renal failure with BUN/creatinine 142/4.28. Patient tachycardic with heart rate in the 110-130s, currently tolerating O2 via nasal cannula 2 L. Patient appears end-of-life at this time. Granddaughter Anita at bedside. She reports that family is considering transferring patient home to resume hospice services with [facility]. Reviewed with daughter patient's disease progression, currently end-of-life with life expectancy of hours to days if illness run its natural course. Telephone call to patient's daughter Caitlyn , left message on voicemail. Case discussed with primary team, Isela LING. Advance Directives Living Will: Never completed Health Care Surrogate: Never completed Durable Power of Pipeline Operator: Never completed Objective Vital Signs: Vital Signs 01/01/19 13:18 01/01/19 13:30 01/01/19 16:00 Temperature 98.0 F 97.9 F Pulse Rate 106 H 103 H 110 H Respiratory Rate 20 20 19 Blood Pressure 134/74 130/75 150/78 H Pulse Oximetry 99 97 95 01/01/19 20:00 01/02/19 00:00 01/02/19 04:54 Temperature 97.9 F 98.2 F 98.6 F Pulse Rate 110 H 105 H 110 H Respiratory Rate 17 21 22 Blood Pressure 155/81 H 161/82 H 151/86 H Pulse Oximetry 96 96 98 01/02/19 08:00 01/02/19 10:21 Temperature 97.8 F Pulse Rate 133 H Respiratory Rate 18 Blood Pressure 162/87 H Pulse Oximetry 93 L 95 Intake & Output 01/01/19 01/02/19 01/02/19 18:59 06:59 18:59 Intake Total 1750 / 1750 1850 / 1850 1450 / 1450 Output Total 200 / 200 Balance 1550 / 1550 1850 / 1850 1450 / 1450 Weight 64.5 kg Intake: IV 1300 / 1300 1450 / 1450 1250 / 1250 Sodium Bicarbonate 8.4% Inj 75 1000 / 1000 1000 / 1000 1150 / 1150 MEQ In 1/2 Normal Saline Inj 925 ML @ 125 mls/hr IV.CONT . Q8H HITESH Rx#:[id number] Azithromycin Inj 500 MG In NS 250 / 250 Inj 250 ML @ 250 mls/hr IV.SIG Q24H HITESH Rx#:[id number] Azactam Inj 500 MG In NS Inj 200 / 200 100 / 100 100 / 100 100 ML @ 200 mls/hr IV.SIG Q8H HITESH Rx#:[id number] Maxipime Inj 2,000 MG In NS Inj 100 / 100 100 / 100 100 ML @ 200 mls/hr IV.SIG Q24H HITESH Rx#:[id number] Oral 0 / 0 Free Water Amount 200 / 200 400 / 400 200 / 200 Anesthesia Amount 250 / 250 Output: Urine 200 / 200 Other: # Voids 2 4 Date of Last Bowel Movement 12/31/18 01/02/19 # Bowel Movements 5 3 Physical Exam: CONSTITUTIONAL/GENERAL: Ill looking elderly female in bed in no acute distress. TUBES/LINES/DRAINS: PIV, feeding tube.. SKIN: No jaundice, rashes, or lesions. No wounds seen anteriorly. Skin temperature appropriate. Not diaphoretic. HEAD: Atraumatic. Normocephalic. EYES: Pupils equal and round and reactive. No scleral icterus. No injection or drainage. ENT: Hearing grossly normal. Nose without bleeding or purulent drainage. Dry lips. NECK: Trachea midline. Supple, nontender. CARDIOVASCULAR: Regular rate and rhythm. Peripheral pulses symmetric. RESPIRATORY/CHEST: Symmetric, unlabored respirations. Clear, diminished breath sounds bilaterally. GASTROINTESTINAL: Abdomen soft, tender right upper quadrant on palpation. Guarding. GENITOURINARY: Without palpable bladder distension. MUSCULOSKELETAL: Extremities without clubbing, cyanosis, or edema. No mottling or clubbing. NEUROLOGICAL: Lethargic. Briefly opening eyes to verbal stimuli but not following any commands. Nonverbal. PSYCHIATRIC: Calm. Diagnostic Tests Laboratory: Laboratory Results - last 72 hr 12/30/18 12/30/18 12/31/18 12:05 13:17 00:06 WBC RBC Hgb 7.7 L 11.1 L D Hct 23.5 L 33.2 L MCV MCH MCHC RDW Plt Count MPV Sodium Potassium Chloride Carbon Dioxide Anion Gap BUN Creatinine Estimated GFR Random Glucose Calcium Phosphorus Magnesium Albumin Blood Type B Positive Blood Type Recheck Not needed Antibody Screen Negative MTS Gel Crossmatch See Detail 12/31/18 12/31/18 01/01/19 09:07 09:07 07:51 WBC 29.8 H 29.8 H RBC 3.58 L 3.55 L Hgb 10.1 L 10.2 L Hct 30.3 L 30.5 L MCV 84.8 85.9 MCH 28.2 28.7 MCHC 33.3 33.4 RDW 17.2 17.3 H Plt Count 237 251 MPV 8.7 8.7 Sodium 146 H Potassium 3.3 L Chloride 112 H Carbon Dioxide 20.7 L Anion Gap 13 BUN 207 H Creatinine 4.47 H Estimated GFR Random Glucose 102 Calcium 8.2 L Phosphorus 2.7 Magnesium 2.0 Albumin 1.7 L Blood Type Blood Type Recheck Antibody Screen MTS Gel Crossmatch 01/01/19 01/02/19 01/02/19 07:51 08:44 08:44 WBC 24.4 H RBC 3.57 L Hgb 10.0 L Hct 30.1 L MCV 84.1 MCH 28.0 MCHC 33.3 RDW 17.1 Plt Count 236 MPV 8.2 Sodium 147 H 149 H Potassium 2.9 L* 2.6 L* Chloride 110 H 109 H Carbon Dioxide 25.1 28.4 Anion Gap 12 12 BUN 169 H 142 H Creatinine 4.29 H 4.28 H Estimated GFR 12 L 12 L Random Glucose 101 164 H Calcium 8.0 L 8.0 L Phosphorus 2.3 L 1.8 L Magnesium 1.9 Albumin 1.5 L 1.4 L Blood Type Blood Type Recheck Antibody Screen MTS Gel Crossmatch Result Diagrams: 01/02/19 08:44 01/02/19 08:44 Microbiology: Microbiology 12/28/18 20:26 Aerobic Blood Culture - Final Blood - Peripheral No growth in 5 days Anaerobic Blood Culture - Final Klebsiella pneumoniae 12/28/18 20:18 Aerobic Blood Culture - Final Blood - Peripheral No growth in 5 days Anaerobic Blood Culture - Final No growth in 5 days 12/29/18 13:00 Urine Culture - Final Clean Catch Urine 50-100,000 cfu/mL mixed ev (probable contaminants) Imaging: Chest x-ray 01/02/19: CONCLUSION: Minimal improvement, persistent airspace disease remains in both lungs. Procedures: 01/01/19 -EGD with biopsy Assessment and Plan - Disease Oriented Problem List (1) Sepsis (2) Pneumonia (3) Idiopathic pancreatitis (4) WAYNE (acute kidney injury) - Symptom Scale (1) Abdominal pain 0-10 Scale: Unable to quantify (2) Shortness of breath 0-10 Scale: Unable to quantify Pertinent Non-Medical Issues: Psychosocial: Patient is retired. She had 2 children and one of her children is . She lives with her daughter. Spiritual: Jehovah'S Witness donn. Legal: Advance directives completed. Ethical issues impacting care: No ethical issues identified. Important Contacts: Daughter Caitlyn Perez [phone] Granddaughter Anita Albert [phone] Prognosis: Mrs. Larsen is an 83 y/o female with significant medical history to include chronic idiopathic pancreatitis, hypertension, GJ tube placement, chronic kidney disease, biliary stent placement, chronic anemia and chronic leukocytosis who presented to ED secondary to shortness of breath. Patient was found septic with GI bleed and worsening kidney failure. Patient with history of weight loss, limited PO intake, difficulty tolerating TF. Seems to have chronic abd pain. She has declined in the recent months with multiple recent acute hospitalizations. Patient had a very high risk for further complications , continued decline and . Patient appears hospice appropriate should family elects comfort-directed care. Patient previously under hospice services , revoked on 12/28/18. Code Status: No Code DNR Plan: * CODE STATUS: DNR/DNI. * HEALTHCARE DECISION-MAKING: Patient unable to participating medical decision making secondary to clinical condition, minimally responsive. No designation of healthcare surrogate completed. Patient is single, has 2 children -1 living. As per [place] statue, healthcare proxy decision making falls to the majority of patient's children for which she has 1 surviving child: Caitlyn Perez. * GOALS OF CARE: Family considering transfer patient home to resume comfort- directed care under hospice services -[facility]. Spoke with granddaughter Anita at bedside, she verbalizes a good understanding of patient' s condition, end of life with life expectancy of hours to days if illness run its natural course. 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 Patient unable to report pain, however, facial grimacing noted on abdominal palpation. Home regimen to include morphine 15 mg twice a day as needed. Currently on Jay Em 5/325 every 4 hours as needed. No further recommendations at this time. = Shortness of breath : In the setting of pneumonia. Currently tolerating O2 via nasal cannula. = Debility: Multifactorial in the setting of multiple chronic ongoing comorbidities, continue physical decline and recent multiple hospitalizations. Patient under hospice services since October,. Overall debility anticipated to worsen. * Spiritual services following. * Case discussed with primary team. * Palliative care contact information has been provided to patient's family. * Palliative care will continue to follow-up for further clarifications of goals of care as patient's clinical course continues to evolve. Time Spent Total Floor Time (mins): 27 (Total time to include review of medical records, physical exam, goals of care conversation with patient's family, case discussion with primary team.) >50% Time in Counseling or Coordination of Care: Yes (Total visit time = 27 minutes; > 50% spent counseling/coordinating care) Attestation Attestation: To help prompt me to consider important information that might be impacting today's encounter and assessment, information from prior notes written by myself or my colleagues may have been "brought forward" into today's note. My signature on this note, however, is an attestation that I personally performed the exam, history, and/or decision-making noted today, and, unless otherwise indicated, the interactions with patient, family, and staff as well as the review of records all occurred today. I also attest that the listed assessment and stated plan reflect my best clinical judgment today based on the combination of historical information, prior notes, and today's exam/ interactions. When time spent is documented, it refers only to time spent today by the signer, or if indicated, combined time spent today by collaborating physician/nurse practitioner.
--- NOTE | 2019-01-02 15:27 | P.PNNP ---
Subjective Interval history: Seen in AM. Lung sounds are rhonchi. Creatinine essentially unchanged at 4.2 today. Patient is declining. <Shreya Tejeda - Last Filed: 01/02/19 15:24> Physical Exam Vital signs: Vital Signs 01/01/19 16:00 01/01/19 20:00 01/02/19 00:00 Temperature 97.9 F 97.9 F 98.2 F Pulse Rate 110 H 110 H 105 H Respiratory Rate 19 17 21 Blood Pressure 150/78 H 155/81 H 161/82 H Pulse Oximetry 95 96 96 01/02/19 04:54 01/02/19 08:00 01/02/19 10:21 Temperature 98.6 F 97.8 F Pulse Rate 110 H 121 H Respiratory Rate 22 18 Blood Pressure 151/86 H 162/87 H Pulse Oximetry 98 93 L 95 01/02/19 12:00 Temperature 99.2 F Pulse Rate 104 H Respiratory Rate 18 Blood Pressure 165/78 H Pulse Oximetry 95 Intake & Output 01/01/19 01/02/19 01/02/19 18:59 06:59 18:59 Intake Total 1750 / 1750 1850 / 1850 1550 / 1550 Output Total 200 / 200 Balance 1550 / 1550 1850 / 1850 1550 / 1550 Weight 64.5 kg Intake: IV 1300 / 1300 1450 / 1450 1350 / 1350 Sodium Bicarbonate 8.4% Inj 75 1000 / 1000 1000 / 1000 1150 / 1150 MEQ In 1/2 Normal Saline Inj 925 ML @ 125 mls/hr IV.CONT . Q8H [facility] Rx#:[id number] Azithromycin Inj 500 MG In NS 250 / 250 Inj 250 ML @ 250 mls/hr IV.SIG Q24H [facility] Rx#:[id number] Azactam Inj 500 MG In NS Inj 200 / 200 100 / 100 100 / 100 100 ML @ 200 mls/hr IV.SIG Q8H [facility] Rx#:[id number] Maxipime Inj 2,000 MG In NS Inj 100 / 100 100 / 100 100 ML @ 200 mls/hr IV.SIG Q24H [facility] Rx#:[id number] KCl 20 mEq Premix Inj 20 meq In 100 / 100 100 ml @ 50 mls/hr IV.SIG Q2H [facility] Rx#:[id number] Oral 0 / 0 Free Water Amount 200 / 200 400 / 400 200 / 200 Anesthesia Amount 250 / 250 Output: Urine 200 / 200 Other: # Voids 2 4 Date of Last Bowel Movement 12/31/18 01/02/19 # Bowel Movements 5 3 Narrative: GENERAL: Patient is non verbal. SKIN: Warm and dry. NECK: Supple, trachea midline. No JVD. CARDIOVASCULAR: Sinus tachycardia RRR, RESPIRATORY: Diminished breath sounds bilateral lung bases. Rhonchi GASTROINTESTINAL: Abdomen soft, non-tender, nondistended. Peg tube MUSCULOSKELETAL: +1 edema bilateral lower ext. <Shreya Tejeda - Last Filed: 01/02/19 15:24> Vital signs: Vital Signs 01/01/19 20:00 01/02/19 00:00 01/02/19 04:54 Temperature 97.9 F 98.2 F 98.6 F Pulse Rate 110 H 105 H 110 H Respiratory Rate 17 21 22 Blood Pressure 155/81 H 161/82 H 151/86 H Pulse Oximetry 96 96 98 01/02/19 08:00 01/02/19 10:21 01/02/19 12:00 Temperature 97.8 F 99.2 F Pulse Rate 121 H 104 H Respiratory Rate 18 18 Blood Pressure 162/87 H 165/78 H Pulse Oximetry 93 L 95 95 01/02/19 16:00 Temperature 98.5 F Pulse Rate 123 H Respiratory Rate 17 Blood Pressure 145/74 H Pulse Oximetry 93 L Intake & Output 01/01/19 01/02/19 01/02/19 18:59 06:59 18:59 Intake Total 1750 / 1750 1849 / 1850 1949 / 1949 Output Total 200 / 200 Balance 1550 / 1550 1849 / 0 1949 / 1949 Weight 64.5 kg Intake: IV 1300 / 1300 1450 / 1450 1550 / 1550 Sodium Bicarbonate 8.4% Inj 75 1000 / 1000 1000 / 1000 1150 / 1150 MEQ In 1/2 Normal Saline Inj 925 ML @ 125 mls/hr IV.CONT . Q8H [facility] Rx#:[id number] Azithromycin Inj 500 MG In NS 250 / 250 Inj 250 ML @ 250 mls/hr IV.SIG Q24H [facility] Rx#:[id number] Azactam Inj 500 MG In NS Inj 200 / 200 100 / 100 200 / 200 100 ML @ 200 mls/hr IV.SIG Q8H [facility] Rx#:[id number] Maxipime Inj 2,000 MG In NS Inj 100 / 100 100 / 100 100 ML @ 200 mls/hr IV.SIG Q24H [facility] Rx#:[id number] KCl 20 mEq Premix Inj 20 meq In 200 / 200 100 ml @ 50 mls/hr IV.SIG Q2H [facility] Rx#:[id number] Oral 0 / 0 Free Water Amount 200 / 200 400 / 400 400 / 400 Anesthesia Amount 250 / 250 Output: Urine 200 / 200 Other: # Voids 2 4 Date of Last Bowel Movement 12/31/18 01/02/19 # Bowel Movements 5 3 <Tamiko Kennedy Q - Last Filed: 01/02/19 18:52> Assessment and Plan - Assessment (1) Acute on chronic kidney failure Code(s): N17.9 - Acute kidney failure, unspecified; N18.9 - Chronic kidney disease, unspecified Status: Acute Plan: Patient has chronic kidney disease and develop WAYNE. Has been on GT feeding, has metabolic acidosis. Creatinine unchanged at 4.2 Patient is now DNR and plan for discharge home with hospice care. (2) Anemia Code(s): D64.9 - Anemia, unspecified Status: Chronic (3) Pneumonia Code(s): J18.9 - Pneumonia, unspecified organism Status: Acute <Shreya Tejeda - Last Filed: 01/02/19 15:24> - Assessment (1) Acute on chronic kidney failure Code(s): N17.9 - Acute kidney failure, unspecified; N18.9 - Chronic kidney disease, unspecified Status: Acute Qualifiers: Plan: Patient seen and examined, agree with above. Creatinine same, continue IVF. (2) Anemia Code(s): D64.9 - Anemia, unspecified Status: Chronic Qualifiers: (3) Pneumonia Code(s): J18.9 - Pneumonia, unspecified organism Status: Acute <Tamiko Kennedy Q - Last Filed: 01/02/19 18:52>
[2019-01-02] MEDS ORDERED: Potassium Phosphate Inj 15 MMOL in Sodium Chlor 0.9% Inj 150 ML IV.SIG ONE (16:00)
[2019-01-02] MEDS: Azithromycin Inj 500 MG in Sodium Chlor 0.9% Inj 250 ML IV.SIG SCH (18:11)
[2019-01-03] MEDS: Pantoprazole Inj 40 MG Vial IV.PUSH SCH (08:17)
[2019-01-03] MEDS: Senna/Docusate Sodium 8.6/50 MG Tablet G-TUBE SCH (08:17)
[2019-01-03] MEDS: Aztreonam Inj 500 MG in Sodium Chlor 0.9% Inj 100 ML IV.SIG SCH (08:17)
[2019-01-03] MEDS: Metoprolol Tartrate 25 MG Tablet G-TUBE SCH (08:18)
[2019-01-03] MEDS: Sucralfate 1 GM Tablet G-TUBE SCH (08:18)
[2019-01-03 08:27] VITALS: BP 160/87; PULSE 111; RESP 18; TEMP 97.9
--- NOTE | 2019-01-03 09:27 | P.PNIM ---
Subjective Interval history: Patient resting in bed appears comfortable, nonverbal and lathargic No family at bedside DC home with hospice ordered 01/02/19 per family's request Physical Exam Vital signs: Last Vital Signs Temp 97.9 F 01/03/19 08:00 Pulse 111 H 01/03/19 08:00 Resp 18 01/03/19 08:00 BP 160/87 H 01/03/19 08:00 Pulse Ox 94 L 01/03/19 08:00 Narrative: GENERAL: This is an 83 year old ill appearing nonverbal lethargic female patient CARDIOVASCULAR: tachycardic RESPIRATORY: decreased GASTROINTESTINAL: Abdomen soft, generalized tenderness, nondistended. Normal active bowel sounds MUSCULOSKELETAL: Extremities without clubbing, cyanosis, or edema. NEURO: ill appearing nonverbal lethargic female patient. Does not follow commands Results Labs CBC & Chem 7: 01/02/19 08:44 01/02/19 08:44 Assessment and Plan Assessment (1) Melena: Code(s): K92.1 - Melena Status: Acute (2) Acute on chronic kidney failure: Code(s): N17.9 - Acute kidney failure, unspecified; N18.9 - Chronic kidney disease, unspecified Status: Acute (3) GERD (gastroesophageal reflux disease): Code(s): K21.9 - Gastro-esophageal reflux disease without esophagitis Status: Acute (4) Gastroparesis: Code(s): K31.84 - Gastroparesis Status: Acute (5) Anemia: Code(s): D64.9 - Anemia, unspecified Status: Chronic Plan Ms. Larsen is an 82 y/o AAF with recurrent idiopathic pancreatitis, GERD, hypertension and GI bleed. She has been hospitalized numerous times for issues with pain control related to recurrent pancreatitis. Most recent hospitalization November 15, 2018 until November 22, 2018 for acute GI bleed, chronic pancreatitis and acute on chronic renal failure. Patient presents with complaints of "weird breathing." Family states that her breathing has been different and appearing more labored since last night or this morning. They state that she is slightly less responsive than her baseline. No fevers that they are aware of. No new pain that they are aware of. She did almost fall yesterday and they do not believe she hit her head but they were not there with her at the time and are not sure. She was on hospice recently but family no longer wants Hospice and would like aggressive care. Sepsis possible source pna vs UTI - Shortness of breath - Chest X-Ray 12/28/18 Patchy bilateral lower lobe infiltrates. - On admission white blood cell count 26.7 -> 18.4 (12/29) -> 22.4 (12/30) -> 29.8 - On admission lactic acid 2.5 - ID consulted, appreciate input - azithromycin (12/28 - present) - cefepime (12/28 - present) - aztreonam (12/30 - present) - NPO with Speech consulted for swallow eval, speech therapy recommending NPO aspiration risks - Suplena via feeding tube with free water flush - UA reviewed urine culture 50 -100,00 mixed ev - blood cultures growing Klebsiella pneumonia 11/18 bottles - Pt is actively dying - Pt is in ARF - Some mild improvement with hydration, but now with worsening pulmonary infiltrated likely CHF - I had an extended conversation with pt's daughter and then again with pt's daughter/granddaughter - I explained pt's poor prognosis, days to weeks at most - I recommended DNR and hospice - following family meeting this evening, Caitlyn requested that I change code status to DNR. - I recommend hospice. WAYNE on CKD - on BUN 287, creatinine 5.91, GFR -> 8 - (12/29) BUN 244, creatinine 5.19, GFR 10 - (12/30) BUN 228, creatinine 4.70 - (12/31) BUN 207, creatinine 4.47 - (12/31) potassium 3.3, carbon dioxide 20.7, Na146, defer to nephrology - IVFs - Nephrology also following, changed IVF to 1/2 NS with bicarb - avoid nephrotoxic agent - recheck BMP in AM Head CT 12/28/18 18:52 CONCLUSION: 1. No acute intracranial abnormality. 2. Bifrontal atrophy. Chronic idiopathic pancreatitis -Continue Lizella 1 tablet p.o. every 4 hours as needed for pain -hold home morphine 15 mg p.o. twice daily due to lethargy -Continue home tube feeding Suplena with goal rate 40mls/hr, with free water flush HTN (hypertension) - continue home procardia XL 30mg BID and metoprolol 25 mg p.o. twice daily with hold parameters GERD (gastroesophageal reflux disease) - PPI Anemia - hgb on admission 9.2 -> 7.1 recheck 8.8 (12/29) -> 7.4 (12/30) 2 units PRBCs -> 11.1 (12/31) - check occult stool - iron 14, TIBC 174, % saturation 8.1, ferritin 1242 - received call from nurse that patient had large black stool - Protonix drip, PRBC - EGD 11/17/18 Medium sized ulcer was found at the pylorus - EGD 01/01/19 --> gastric ulcer, barett's esophagus DVT prophylaxis with SCDs Palliative care consult Hospice consult, awaiting Hospice consult DC order home with hospice written per family's request Attending Attestation Patient examined. Assessment and plan formulated with Olga PETERSON I agree with the above. family decided on hospice. going home today. Progress Note: Quality VTE Deep Vein Thrombosis/Pulmonary Embolism Present on Admission: No _ (1) Anemia Qualifiers: Anemia type: Bone marrow failure anemia type: Chronic kidney disease stage : Folate deficiency anemia type: Hemolytic anemia type: Iron deficiency anemia type: Other causes of anemia: Vitamin B12 deficiency anemia type: (2) GERD (gastroesophageal reflux disease) Qualifiers: Esophagitis presence: (3) Acute on chronic kidney failure Qualifiers: Acute renal failure type: Chronic kidney disease stage: Qualified Code(s) : N18.9 - Chronic kidney disease, unspecified
[2019-01-03] MEDS: Lipase/Protease/Amylase 12/38/60 DR Capsule PO SCH (10:27)
[2019-01-03 11:02] VITALS: O2SAT 99
--- NOTE | 2019-01-03 15:23 | P.PNNP ---
Subjective Interval history: Seen in morning being discharged to home hospice. <Shreya Tejeda - Last Filed: 01/03/19 15:20> Physical Exam Vital signs: Vital Signs 01/02/19 16:00 01/02/19 20:00 01/03/19 00:00 Temperature 98.5 F 98.1 F 98.9 F Pulse Rate 123 H 121 H 65 Respiratory Rate 17 20 22 Blood Pressure 145/74 H 145/72 H 160/90 H Pulse Oximetry 93 L 99 94 L 01/03/19 04:00 01/03/19 08:00 01/03/19 11:02 Temperature 98.1 F 97.9 F Pulse Rate 107 H 111 H Respiratory Rate 24 18 Blood Pressure 157/78 H 160/87 H Pulse Oximetry 98 94 L 99 Intake & Output 01/02/19 01/03/19 01/03/19 18:59 06:59 18:59 Intake Total 1949 / 1950 950 / 950 400 / 400 Balance 1949 / 1949 950 / 950 400 / 400 Weight 67.1 kg Intake: IV 1550 / 1550 350 / 350 200 / 200 Sodium Bicarbonate 8.4% Inj 75 1150 / 1150 MEQ In 1/2 Normal Saline Inj 925 ML @ 125 mls/hr IV.CONT . Q8H [facility] Rx#:[id number] Azithromycin Inj 500 MG In NS 250 / 250 Inj 250 ML @ 250 mls/hr IV.SIG Q24H [facility] Rx#:[id number] Azactam Inj 500 MG In NS Inj 200 / 200 100 / 100 100 / 100 100 ML @ 200 mls/hr IV.SIG Q8H [facility] Rx#:[id number] Maxipime Inj 2,000 MG In NS Inj 100 / 100 100 ML @ 200 mls/hr IV.SIG Q24H [facility] Rx#:[id number] KCl 20 mEq Premix Inj 20 meq In 200 / 200 100 ml @ 50 mls/hr IV.SIG Q2H [facility] Rx#:[id number] Free Water Amount 400 / 400 600 / 600 200 / 200 Other: # Voids 1 Date of Last Bowel Movement 01/02/19 01/02/19 # Bowel Movements 1 Narrative: GENERAL: Patient is non verbal. SKIN: Warm and dry. NECK: Supple, trachea midline. No JVD. CARDIOVASCULAR: Sinus tachycardia RRR, RESPIRATORY: Diminished breath sounds bilateral lung bases. Rhonchi GASTROINTESTINAL: Abdomen soft, non-tender, nondistended. Peg tube MUSCULOSKELETAL: +1 edema bilateral lower ext. <Shreya Tejeda - Last Filed: 01/03/19 15:20> Vital signs: Vital Signs 01/03/19 00:00 01/03/19 04:00 01/03/19 08:00 Temperature 98.9 F 98.1 F 97.9 F Pulse Rate 65 107 H 111 H Respiratory Rate 22 24 18 Blood Pressure 160/90 H 157/78 H 160/87 H Pulse Oximetry 94 L 98 94 L 01/03/19 11:02 Temperature Pulse Rate Respiratory Rate Blood Pressure Pulse Oximetry 99 Intake & Output 01/03/19 01/03/19 01/04/19 06:59 18:59 06:59 Intake Total 950 / 950 400 / 400 Balance 950 / 950 400 / 400 Weight 67.1 kg Intake: IV 350 / 350 200 / 200 Azithromycin Inj 500 MG In NS 250 / 250 Inj 250 ML @ 250 mls/hr IV.SIG Q24H [facility] Rx#:[id number] Azactam Inj 500 MG In NS Inj 100 / 100 100 / 100 100 ML @ 200 mls/hr IV.SIG Q8H [facility] Rx#:[id number] Maxipime Inj 2,000 MG In NS Inj 100 / 100 100 ML @ 200 mls/hr IV.SIG Q24H [facility] Rx#:[id number] Free Water Amount 600 / 600 200 / 200 Other: # Voids 1 Date of Last Bowel Movement 01/02/19 # Bowel Movements 1 <Samson Kennedy - Last Filed: 01/03/19 20:40> Assessment and Plan - Assessment (1) Acute on chronic kidney failure Code(s): N17.9 - Acute kidney failure, unspecified; N18.9 - Chronic kidney disease, unspecified Status: Acute Plan: Is lethargic non verbal and shaking. Plan for discharge home with hospice, comfort care. (2) Anemia Code(s): D64.9 - Anemia, unspecified Status: Chronic Plan: (3) Pneumonia Code(s): J18.9 - Pneumonia, unspecified organism Status: Acute <Shreya Tejeda - Last Filed: 01/03/19 15:20> - Assessment (1) Acute on chronic kidney failure Code(s): N17.9 - Acute kidney failure, unspecified; N18.9 - Chronic kidney disease, unspecified Status: Acute Qualifiers: Plan: Patient seen and examined, agree with above. Clinically same, now going on Hospice. (2) Anemia Code(s): D64.9 - Anemia, unspecified Status: Chronic Qualifiers: (3) Pneumonia Code(s): J18.9 - Pneumonia, unspecified organism Status: Acute <Samson Kennedy - Last Filed: 01/03/19 20:40>
== END 2019-01-03 12:51 | disposition hospice, home (50) | DRG 871 ==
LOC: NEPE 16:58 → NEDA 21:59 → N07 22:53
PROVIDERS: ADMIT Hospitalist; ATTEND Hospitalist
DX: K21.9 Gastro-esophageal reflux disease without esophagitis; Z96.652 Presence of left artificial knee joint; F41.9 Anxiety disorder, unspecified; N18.3 Chronic kidney disease, stage 3 (moderate); I50.9 Heart failure, unspecified; K22.70 Barrett's esophagus without dysplasia; A41.50 Gram-negative sepsis, unspecified; K92.1 Melena; G93.40 Encephalopathy, unspecified; K86.1 Other chronic pancreatitis; K44.9 Diaphragmatic hernia without obstruction or gangrene; N17.9 Acute kidney failure, unspecified; Z93.1 Gastrostomy status; I13.0 Hypertensive heart and chronic kidney disease with heart failure and stage 1 through stage 4 chronic kidney disease, or unspecified chronic kidney disease; B96.1 Klebsiella pneumoniae [K. pneumoniae] as the cause of diseases classified elsewhere; R64 Cachexia; R00.0 Tachycardia, unspecified; R65.20 Severe sepsis without septic shock; Z90.49 Acquired absence of other specified parts of digestive tract; D64.9 Anemia, unspecified; E87.2 Acidosis; Z66 Do not resuscitate; J69.0 Pneumonitis due to inhalation of food and vomit; K31.84 Gastroparesis; Z79.899 Other long term (current) drug therapy; K25.4 Chronic or unspecified gastric ulcer with hemorrhage
CPT/HCPCS: 36430; 70450; 71010; 71045; 76775; 76937; 80048; 80053; 80069; 81001; 82140; 82570; 82728; 83520; 83540; 83550; 83605; 83735; 83880; 83935; 84300; 84484; 85014; 85018; 85025; 85027; 86850; 86900; 86901; 86923; 87040; 87077; 87086; 87186; 87205; 87275; 87276; 87804; 88305; 88312; 90765; 90767; 92526; 92610; 96365; 96367; 97162; 99285; C9113; G0195; J0456; J0692; J0886; J1940; J2060; J2704; J3370; J3480; J7030; J7040; J7050; P9016; Q4055; Q4081